=== PATIENT | female | born 1965 | race Caucasian/White ===

== ENCOUNTER → 2016-10-10 | Outpatient (CLI) | payer MEDICAID ==
[~2016-10-10] MED LIST: AMIT100T2; AMIT25TA9; CELEXA; CIPR500T78 PO; CITA20TA4 PO; ENOX100D9 SQ; HCT25T PO; MELO-195; MELO7.5T PO; METR500T PO; PHEN37.582; RABE20TA PO; WARF5TAB PO; WARF7.5T PO; WRF5T
--- NOTE | 2016-10-13 18:51 | Diagnostic Imaging Report ---
Bilateral screening mammogram 2D views with tomosynthesis. The current study was also evaluated with a Computer Aided Detection (CAD) system. INDICATION: Screening. No current complaints stated on the questionnaire. COMPARISON: 06/13/15 FINDINGS: The breasts are composed of scattered fibroglandular densities. Allowing for technique and positional differences, no suspicious change is seen. IMPRESSION: No significant change. ACR BI-RADS Category 2: Benign findings. Result letter will be mailed to the patient. Note: At least 10% of breast cancer is not imaged by mammography. Dictated by: Dictated on workstation # [id number]
== END ==
LOC: RAD 14:11
PROVIDERS: ATTEND Family Medicine
DX: Z12.31 Encounter for screening mammogram for malignant neoplasm of breast (principal)
CPT/HCPCS: 77067

== ENCOUNTER 2017-09-14 16:42 | Emergency (ER) | payer MEDICAID ==
[~2017-09-14] VITALS: Ht 160 cm; Wt 86.2 kg
--- NOTE | 2017-09-14 17:24 | ED Cough/URI ---
General Chief Complaint: Respiratory Problems Stated Complaint: TROUBLE BREATHING Nursing Triage Note: PATIENT HERE WITH SOB. SHE HAD SHOULDER SURGERY TODAY AND HAD BEEN HOLDING HER ELIQUIS FOR 1 WEEK. SHE HAS FACTOR V LEIDEN AND HAS HAD MULTIPLE DVT. Source: patient Exam Limitations: no limitations History of Present Illness Date Seen by Provider: Sep 14, 2017 Time Seen by Provider: 17:22 Initial Comments to ER with concerns of pulmonary embolism. She reports some difficulty with breathing. She had outpatient left rotator cuff surgery by Dr. Hadley earlier today. Prior to this she had been holding her Eliquis for one week(5 days) in preparation for surgery. She took her first dose of Eliquis today after surgery. she notes some shortness of breath after she got home and became concerned. She takes Eliquis for history of factor V Leiden and history of multiple DVT/PE. She does have a [place] filter. Timing/Duration: constant Severity/Quality: no cough, mild Allergies and Home Medications Allergies Coded Allergies: No Known Drug Allergies (Verified , 07/04/09) Home Medications Hydrochlorothiazide 25 Mg Tab, 50 MG PO DAILY, (Reported) Patient Home Medication List Home Medication List Reviewed: Yes Review of Systems Constitutional: see HPI EENTM: see HPI Respiratory: see HPI, short of breath Cardiovascular: no symptoms reported Genitourinary: no symptoms reported Musculoskeletal: no symptoms reported Skin: no symptoms reported Psychiatric/Neurological: No Symptoms Reported Past Gitydlt-Clubil-Ptgblm Hx Patient Social History Alcohol Use: Denies Use Recreational Drug Use: No Smoking Status: Never a Smoker 2nd Hand Smoke Exposure: No Recent Foreign Travel: No Contact w/Someone Who Travel: No Recent Infectious Disease Expo: No Recent Hopitalizations: Yes Physical Abuse: No Sexual Abuse: No Immunizations Up To Date Date of Pneumonia Vaccine: Nov 30, 2009 Past Medical History Surgeries: Yes (EXP ON L LEG, LAP BAND) Section, Gallbladder Respiratory: No Cardiac: No Neurological: No Reproductive Disorders: No Gastrointestinal: No Musculoskeletal: No Endocrine: No Cancer: No Psychosocial: No Nursing Suicide Risk Score: 0 Blood Disorders: Yes (CLOTTING DISORDERS) Physical Exam Vital Signs Vital Signs - First Documented 09/14/17 16:48 Temp 98.1 Pulse 107 Resp 18 B/P (MAP) 114/85 (95) Pulse Ox 96 Capillary Refill : Less Than 3 Seconds General Appearance: WD/WN, no apparent distress Eyes: Bilateral Eye Normal Inspection, Bilateral Eye PERRL, Bilateral Eye EOMI HEENT: PERRL/EOMI, normal ENT inspection Neck: non-tender, full range of motion Respiratory: no respiratory distress, no accessory muscle use Cardiovascular: regular rate, rhythm, no murmur Gastrointestinal: normal bowel sounds, non tender, soft Neurologic/Psychiatric: alert, normal mood/affect, oriented x 3 Skin: normal color, warm/dry, other (lleft arm is in a shoulder and abducting sling) Progress/Results/Core Measures Suspected Sepsis Recent Fever Within 48 Hours: No Infection Criteria Present: Suspected New Infection New/Unexplained Altered Menta: No Sepsis Screen: No Definite Risk SIRS Temperature:98.1 Pulse: 107 Respiratory Rate: 18 Laboratory Tests 09/14/17 17:25: White Blood Count 4.6 Blood Pressure 114 /85 Mean: 95 Laboratory Tests 09/14/17 17:25: Creatinine 1.00, Platelet Count 278, Total Bilirubin 0.3 Results/Orders Lab Results Laboratory Tests Test 09/14/17 17:25 Range/Units White Blood Count 4.6 4.3-11.0 10^3/uL Red Blood Count 4.37 4.35-5.85 10^6/uL Hemoglobin 12.6 11.5-16.0 G/DL Hematocrit 36 35-52 % Mean Corpuscular Volume 83 80-99 FL Mean Corpuscular Hemoglobin 29 25-34 PG Mean Corpuscular Hemoglobin Concent 35 32-36 G/DL Red Cell Distribution Width 14.2 10.0-14.5 % Platelet Count 278 130-400 10^3/uL Mean Platelet Volume 9.4 7.4-10.4 FL Neutrophils (%) (Auto) 87 H 42-75 % Lymphocytes (%) (Auto) 11 L 12-44 % Monocytes (%) (Auto) 2 0-12 % Eosinophils (%) (Auto) 0 0-10 % Basophils (%) (Auto) 0 0-10 % Neutrophils # (Auto) 4.0 1.8-7.8 X 10^3 Lymphocytes # (Auto) 0.5 L 1.0-4.0 X 10^3 Monocytes # (Auto) 0.1 0.0-1.0 X 10^3 Eosinophils # (Auto) 0.0 0.0-0.3 10^3/uL Basophils # (Auto) 0.0 0.0-0.1 10^3/uL Neutrophils % (Manual) 81 % Lymphocytes % (Manual) 11 % Monocytes % (Manual) 2 % Eosinophils % (Manual) 0 % Basophils % (Manual) 0 % Band Neutrophils 6 % Blood Morphology Comment NORMAL Sodium Level 138 135-145 MMOL/L Potassium Level 3.3 L 3.6-5.0 MMOL/L Chloride Level 102 98-107 MMOL/L Carbon Dioxide Level 22 21-32 MMOL/L Anion Gap 14 5-14 MMOL/L Blood Urea Nitrogen 10 7-18 MG/DL Creatinine 1.00 0.60-1.30 MG/DL Estimat Glomerular Filtration Rate 58 BUN/Creatinine Ratio 10 Glucose Level 259 H 70-105 MG/DL Calcium Level 9.0 8.5-10.1 MG/DL Total Bilirubin 0.3 0.1-1.0 MG/DL Aspartate Amino Transf (AST/SGOT) 15 5-34 U/L Alanine Aminotransferase (ALT/SGPT) 14 0-55 U/L Alkaline Phosphatase 56 40-136 U/L Total Protein 6.9 6.4-8.2 GM/DL Albumin 3.8 3.2-4.5 GM/DL My Orders Orders - MARY HORNE RN SURGICAL PCU Ct Angio Chest W (09/14/17 17:19) Cbc With Automated Diff (09/14/17 17:19) Comprehensive Metabolic Panel (09/14/17 17:19) Manual Differential (09/14/17 17:25) Iohexol Injection (Omnipaque 350 Mg/Ml 1 (09/14/17 18:15) Ns (Ivpb) (Sodium Chloride 0.9% Ivpb Bag (09/14/17 18:15) Medications Given in ED Current Medications Medications Dose Ordered Sig/Kartik Route Start Time Stop Time Status Last Admin Dose Admin Iohexol 150 ml ONCE ONCE IV 09/14/17 18:15 18 18:16 DC 18 18:06 140 ML Sodium Chloride 100 ml ONCE ONCE IV 18 18:15 18 18:16 DC 18 18:06 100 ML Vital Signs/I&O 09/14/17 16:48 Temp 98.1 Pulse 107 Resp 18 B/P (MAP) 114/85 (95) Pulse Ox 96 Capillary Refill : Less Than 3 Seconds Blood Pressure Mean: 95 Departure Impression Primary Impression: mild dyspnea Additional Impression: History of pulmonary embolism Disposition: 01 HOME, SELF-CARE Condition: Stable Departure-Patient Inst. Decision time for Depature: 17:28 Referrals: MICHAEL HADLEY MD (PCP) Primary Care Physician Patient Instructions: NO INSTRUCTIONS GIVEN Add. Discharge Instructions: 1. Continue 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 2. Follow-up with your doctor next week. use the incentive spirometer to help encourage deep breathing once every hour while awake for the next 2 or 3 days. The thyroid nodule should be followed up on with a thyroid ultrasound ordered by her primary care provider. Return to ER for any concerns. 3. Return to ER for any concerns.All discharge instructions reviewed with patient and/or family. Voiced understanding. MARY HORNE RN SURGICAL PCU Sep 14, 2017 17:24
[2017-09-14 17:34] LABS: BASOPHILS % (AUTO) 0 % (0-10); EOSINOPHILS % (AUTO) 0 % (0-10); HEMATOCRIT 36 % (35-52); HEMOGLOBIN 12.6 G/DL (11.5-16.0); LYMPHOCYTES # (AUTO) 0.5 X 10^3 (1.0-4.0); LYMPHOCYTES % (AUTO) 11 % (12-44); MEAN CORPUSCULAR HEMOGLOBIN 29 PG (25-34); MEAN CORPUSCULAR HGB CONC 35 G/DL (32-36); MEAN CORPUSCULAR VOLUME 83 FL (80-99); MEAN PLATELET VOLUME 9.4 FL (7.4-10.4); MONOCYTES # (AUTO) 0.1 X 10^3 (0.0-1.0); MONOCYTES % (AUTO) 2 % (0-12); NEUTROPHILS % (AUTO) 87 % (42-75); PLATELET COUNT 278 10^3/uL (130-400); RED BLOOD COUNT 4.37 10^6/uL (4.35-5.85); RED CELL DISTRIBUTION WIDTH 14.2 % (10.0-14.5); WHITE BLOOD COUNT 4.6 10^3/uL (4.3-11.0)
[2017-09-14 17:55] LABS: ALBUMIN 3.8 GM/DL (3.2-4.5); BILIRUBIN,TOTAL 0.3 MG/DL (0.1-1.0); POTASSIUM 3.3 MMOL/L (3.6-5.0); TOTAL PROTEIN 6.9 GM/DL (6.4-8.2)
[2017-09-14 18:05] LABS: BAND NEUTROPHILS 6 %; BASOPHILS % (MANUAL) 0 %; EOSINOPHILS % (MANUAL) 0 %; LYMPHOCYTES % (MANUAL) 11 %; MONOCYTES % (MANUAL) 2 %; NEUTROPHILS % (MANUAL) 81 %; RBC MORPH NORMAL
[2017-09-14] MEDS ORDERED: NS 100 ML (IVPB) BAG IV ONE (18:15)
[2017-09-14] MEDS ORDERED: IOHEXOL 350 MG/ML 150 ML (OMNIPAQUE 350) VIAL IV ONE (18:15)
[2017-09-14] MEDS ORDERED: OMEP10CA4 PO (18:16)
[2017-09-14] MEDS ORDERED: ESCI5TAB PO (18:17)
[2017-09-14] MEDS ORDERED: APIX5TAB4 PO (18:17)
--- NOTE | 2017-09-14 18:32 | Diagnostic Imaging Report ---
PROCEDURE: CT angiography of the chest with contrast. TECHNIQUE: Multiple contiguous axial images were obtained through the chest after uneventful bolus administration of intravenous contrast. Reconstructed CTA MIP acquisitions were also performed. INDICATION: Cough and dyspnea COMPARISON is made to study of 04/06/2012. FINDINGS: There has been interval increase in size of a 1.5 cm solid nodule in the lower pole of the left lobe of the thyroid gland. There is good opacification of pulmonary arteries without intraluminal filling defect identified. The thoracic aorta is unremarkable in appearance. There has been development of basilar atelectasis and/or pneumonitis, greater on. Note is made of left hand surgery. IMPRESSION: No CTA evidence of pulmonary embolism. There is dependent atelectasis and/or pneumonitis in both lungs, greater on the Left. There is enlargement of an approximately 1.5 cm solid nodule in the inferior pole of the left lobe of the thyroid gland. Thyroid ultrasonography should be performed for further assessment Dictated by: Dictated on workstation # [id number]
[2017-09-14 18:58] VITALS: BP 114/85
== END 2017-09-14 18:58 | disposition home or self-care (01) ==
LOC: EDUNIT# 16:42 → ER 16:43
DX: R06.00 Dyspnea, unspecified (principal); D68.2 Hereditary deficiency of other clotting factors; Z86.711 Personal history of pulmonary embolism; Z87.59 Personal history of other complications of pregnancy, childbirth and the puerperium; Z98.84 Bariatric surgery status; Z79.01 Long term (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
CPT/HCPCS: 36415; 71275; 80053; 85007; 85027

== ENCOUNTER → 2017-12-04 | Outpatient (CLI) | payer MEDICAID ==
[~2017-12-04] MED LIST changes: +APIX5TAB4 PO; +ESCI5TAB PO; +LIDOCAINE 1% INJ 20 ML 20 ML VIAL INJ ONE; +LIDOCAINE 1% INJ 20 ML 20 ML VIAL ONE; +OMEP10CA4 PO
--- NOTE | 2017-12-04 17:42 | Diagnostic Imaging Report ---
INDICATION: Routine screening. Comparison is made with prior mammogram from 10/10/2016 and 06/08/2015. 2-D and 3-D bilateral screening mammography was performed. The current study was also evaluated with a Computer Aided Detection (CAD) system. FINDINGS: Both breasts are heterogeneously dense, limiting the sensitivity of mammography. The parenchymal pattern is stable. No dominant mass or malignant-appearing microcalcifications are seen. Benign calcifications are noted bilaterally. The axillae are unremarkable. IMPRESSION: No mammographic features suspicious for malignancy are identified. ACR BI-RADS Category 2: Benign findings. Result letter will be mailed to the patient. Note: At least 10% of breast cancer is not imaged by mammography. Dictated by: Dictated on workstation # [id number]
== END ==
LOC: RAD 11:24
PROVIDERS: ATTEND Family Medicine
DX: K66.1 Hemoperitoneum (principal); Z12.31 Encounter for screening mammogram for malignant neoplasm of breast
CPT/HCPCS: 77067

== ENCOUNTER → 2017-12-07 | Outpatient (CLI) | payer MEDICAID ==
[~2017-12-07] VITALS: Ht 160 cm; Wt 86.2 kg
--- NOTE | 2017-12-07 11:28 | Diagnostic Imaging Report ---
INDICATION: Left lobe thyroid nodule. The patient presents for ultrasound guided fine needle aspiration. PROCEDURE: Patient was brought to the procedure room and placed on the table in the supine position. Ultrasound imaging over the left neck was performed to evaluate appropriate entry site. Left neck was prepped and draped in the usual sterile fashion. Small amount of 1% lidocaine was utilized for local anesthesia. A total of three passes were made into the solid nodule in the lower pole of the left lobe of thyroid utilizing 25-gauge needles. Fine needle aspiration technique was utilized. Hemostasis was obtained using manual compression. Patient tolerated the procedure well and left the department in stable condition. IMPRESSION: Successful ultrasound-guided left lobe thyroid nodule fine-needle aspiration, as described. Pathology results are currently pending. Dictated by: Dictated on workstation # [id number]
== END ==
LOC: RAD 09:33
PROVIDERS: ATTEND Family Medicine
DX: E04.1 Nontoxic single thyroid nodule (principal)
CPT/HCPCS: 76942; 88305

== ENCOUNTER → 2017-12-21 | Outpatient (RCR) | payer MEDICAID ==
[~2017-12-21] MED LIST changes: -LIDOCAINE 1% INJ 20 ML 20 ML VIAL INJ ONE; -LIDOCAINE 1% INJ 20 ML 20 ML VIAL ONE
== END | disposition home or self-care (01) ==
PROVIDERS: ATTEND Physician Assistant Medical
DX: Z47.89 Encounter for other orthopedic aftercare (principal); M25.512 Pain in left shoulder

== ENCOUNTER 2018-01-25 14:47 | Outpatient (RCR) | payer MEDICAID | END 2018-03-29 15:26 | disposition home or self-care (01) | PROVIDERS: ATTEND Physician Assistant Medical | DX: Z47.89 Encounter for other orthopedic aftercare (principal); M25.512 Pain in left shoulder ==

== ENCOUNTER 2018-02-11 21:00 | Outpatient (CLI) | payer MEDICAID | END 2018-02-12 06:25 | disposition home or self-care (01) | LOC: SLEEP 21:00 | PROVIDERS: ATTEND Family Medicine | DX: G47.33 Obstructive sleep apnea (adult) (pediatric) (principal) | CPT/HCPCS: 95810 ==

== ENCOUNTER → 2018-03-15 | Outpatient (CLI) | payer MEDICAID ==
[~2018-03-15] VITALS: Ht 160 cm; Wt 86.2 kg
[2018-03-15] MEDS: LIDOCAINE 1% INJ 20 ML 20 ML VIAL INJ ONE (09:57)
--- NOTE | 2018-03-15 10:57 | Diagnostic Imaging Report ---
INDICATION: Thyroid nodule. Patient underwent fine needle aspiration procedure on 12/07/2017 with a nondiagnostic result. The patient presents for repeat biopsy. TECHNIQUE: The patient was brought to the procedure room and placed on the table in the supine position. Ultrasound imaging over the left neck was performed to evaluate for an appropriate entry site. The skin of the left neck was then prepped and draped in the usual sterile fashion. A small amount of 1% lidocaine was utilized for local anesthesia. Two passes were made into the dominant solid nodule in the lower pole of the left lobe with a 25-gauge needle. Fine needle aspiration technique was utilized. Next, four passes were made into the nodule with a 20-gauge [place] needle and core biopsies were obtained. Hemostasis was obtained using manual compression. The patient tolerated the procedure well. IMPRESSION: Ultrasound-guided left thyroid nodule FNA and core biopsy, as described. Pathology results are currently pending. Dictated by: Dictated on workstation # [id number]
== END ==
LOC: RAD 09:16
PROVIDERS: ATTEND Surgery
DX: E04.1 Nontoxic single thyroid nodule (principal)
CPT/HCPCS: 76942; 88173; 88305

== ENCOUNTER → 2018-05-16 | Outpatient (CLI) | payer MEDICAID ==
--- NOTE | 2018-05-16 11:46 | Diagnostic Imaging Report ---
EXAMINATION: Chest, PA and lateral views. INDICATION: Cough and chest congestion. COMPARISON: Chest radiographs performed on 10/15/2009. FINDINGS: The lungs are clear and the pulmonary vasculature is normal. No pneumothorax or pleural effusion. Cardiothymic silhouette is unchanged. No acute osseous abnormality. Surgical clips are demonstrated in the right upper quadrant. Bone anchor in the left humeral head likely reflects prior shoulder surgery. IMPRESSION: No acute chest disease. No significant change from prior. Dictated by: Dictated on workstation # [id number]
== END ==
LOC: RAD 11:14
PROVIDERS: ATTEND Nurse Practitioner Family
DX: R05 Cough (principal); R09.89 Other specified symptoms and signs involving the circulatory and respiratory systems; Z98.890 Other specified postprocedural states
CPT/HCPCS: 71046

== ENCOUNTER 2018-07-14 20:04 | Observation (INO) | payer MEDICAID ==
[~2018-07-14] VITALS: Ht 160 cm; Wt 86.2 kg
[2018-07-14] MEDS ORDERED: fentaNYL INJECTION 100 MCG/2 ML AMP ONE (20:10)
[2018-07-14] MEDS ORDERED: fentaNYL INJECTION 100 MCG/2 ML AMP IVP ONE ×4 (20:15→22:45)
[2018-07-14] MEDS ORDERED: ONDANSETRON 4 MG/2 ML (SDV) Z0FRAN IVP ONE (20:15)
[2018-07-14 20:25] LABS: BASOPHILS # (AUTO) 0.1 10^3/uL (0.0-0.1); BASOPHILS % (AUTO) 1 % (0-10); EOSINOPHILS # (AUTO) 0.3 10^3/uL (0.0-0.3); EOSINOPHILS % (AUTO) 5 % (0-10); HEMATOCRIT 39 % (35-52); HEMOGLOBIN 12.3 G/DL (11.5-16.0); LYMPHOCYTES # (AUTO) 3.1 X 10^3 (1.0-4.0); LYMPHOCYTES % (AUTO) 45 % (12-44); MEAN CORPUSCULAR HEMOGLOBIN 26 PG (25-34); MEAN CORPUSCULAR HGB CONC 32 G/DL (32-36); MEAN CORPUSCULAR VOLUME 82 FL (80-99); MEAN PLATELET VOLUME 9.9 FL (7.4-10.4); MONOCYTES % (AUTO) 14 % (0-12); NEUTROPHILS # (AUTO) 2.5 X 10^3 (1.8-7.8); NEUTROPHILS % (AUTO) 36 % (42-75); PLATELET COUNT 385 10^3/uL (130-400); RED CELL DISTRIBUTION WIDTH 17.2 % (10.0-14.5)
[2018-07-14 20:37] LABS: PROTHROMBIN TIME PATIENT 13.8 SEC (12.2-14.7)
[2018-07-14 20:46] LABS: ALANINE AMINOTRANSFERASE 23 U/L (0-55); ALBUMIN 4.3 GM/DL (3.2-4.5); ALKALINE PHOSPHATASE 90 U/L (40-136); BILIRUBIN,TOTAL 0.3 MG/DL (0.1-1.0); BUN/CREATININE RATIO 13; CALCIUM 9.7 MG/DL (8.5-10.1); CARBON DIOXIDE 22 MMOL/L (21-32); CHLORIDE 104 MMOL/L (98-107); CREATININE SERUM 0.89 MG/DL (0.60-1.30); GFR ESTIMATED > 60; GLUCOSE 98 MG/DL (70-105); MAGNESIUM 2.6 MG/DL (1.8-2.4); POTASSIUM 3.7 MMOL/L (3.6-5.0); SODIUM 141 MMOL/L (135-145); TOTAL PROTEIN 7.8 GM/DL (6.4-8.2)
--- NOTE | 2018-07-14 21:03 | ED Fall/Injury ---
General Chief Complaint: Trauma-Non Activation Stated Complaint: BACK PAIN Nursing Triage Note: PT TO RM 4 BY WHEELCHAIR. PT WAS HELPED OUT OF VEHICLE BY STAFF. PT STATES SHE WAS GETTING INTO THE VEHICLE, LOST HER BALANCE, FELL BACKWARD, HIT HEAD AND HEARD A POP IN HER LOWER BACK. DENIES LOC. Source: patient, spouse Exam Limitations: no limitations History of Present Illness Date Seen by Provider: Jul 14, 2018 Time Seen by Provider: 20:00 Initial Comments Patient presents to ER by private conveyance with her with chief complaint about half hour prior to arrival she was getting into her truck when she slipped and fell backwards landing first on her head and then on her lower back. She says she felt a snapping sensation in her low back and is had a tremendous amount of pain 10 out of 10. The pain radiates down her right buttock and right leg just below the butt cheek. She has no history of back problems or back surgeries or sciatica. She is on Xarelto for a history of factor V Leiden. She had immediate waves of nausea after falling and striking her head but did not vomit. She still having some pain in her head but also her pain is in her low back. She couple weeks ago had a surgery for biopsy of a nodule on her thyroid turned out to be benign. She does not have diabetes, heart problems or blood pressure problems. Allergies and Home Medications Allergies Coded Allergies: No Known Drug Allergies (Verified , 07/04/09) Home Medications Hydrochlorothiazide 25 Mg Tab, 50 MG PO DAILY, (Reported) Patient Home Medication List Home Medication List Reviewed: Yes Review of Systems Review of Systems Constitutional: No chills, No fever Eyes: Denies Blindness, Denies Blurred Vision Ears, Nose, Mouth, Throat: denies ear pain, denies ear discharge Respiratory: No cough, No short of breath Cardiovascular: No chest pain, No edema Gastrointestinal: No abdominal pain, No constipation, No diarrhea; nausea; No vomiting Genitourinary: No discharge, No dysuria Musculoskeletal: No back pain, No joint pain Past Nnhedwt-Jnnwnj-Gsaapu Hx Patient Social History Alcohol Use: Denies Use Recreational Drug Use: No Smoking Status: Never a Smoker 2nd Hand Smoke Exposure: No Recent Foreign Travel: No Contact w/Someone Who Travel: No Recent Infectious Disease Expo: No Recent Hopitalizations: No Immunizations Up To Date Tetanus Booster (TDap): Unknown Date of Pneumonia Vaccine: Nov 30, 2009 Past Medical History Surgeries: Yes (EXP ON L LEG, LAP BAND) Section, Gallbladder, Thyroidectomy Respiratory: No Cardiac: No Neurological: No Reproductive Disorders: No Gastrointestinal: No Musculoskeletal: No Endocrine: No Cancer: No Psychosocial: No Integumentary: No Blood Disorders: Yes (CLOTTING DISORDERS, FACTOR FIVE) Physical Exam Vital Signs Vital Signs - First Documented 07/14/18 20:05 Pulse 86 Resp 18 B/P (MAP) 148/92 (110) Pulse Ox 98 O2 Delivery Room Air Capillary Refill : Less Than 3 Seconds Height, Weight, BMI Height: 5'3.00" Weight: 190lbs. 0.0oz. 86.807535kv; 33.7 BMI Method:Stated General Appearance: WD/WN, moderate distress HEENT: PERRL/EOMI, normal ENT inspection, TMs normal, pharynx normal, other ( atraumatic head without vital signs, raccoon eyes, hemotympanum) Neck: non-tender ( area), full range of motion, supple, normal inspection Cardiovascular: normal peripheral pulses, regular rate, rhythm, no edema Respiratory: chest non-tender, lungs clear, normal breath sounds, no respiratory distress, no accessory muscle use Peripheral Pulses: 2+ Dorsalis Pedis (R), 2+ Left Dors-Pedis (L), 2+ Radial Pulses (R), 2+ Radial Pulses (L) Gastrointestinal: normal bowel sounds, non tender Extremities: normal range of motion, non-tender, normal inspection, no pedal edema, normal capillary refill Neurologic/Psychiatric: manager online II-XII nml as tested, no motor/sensory deficits, alert, normal mood/affect, oriented x 3, other (able to move all 4 extremities independently) Skin: normal color [place] Coma Score Best Eye Response: (4) Open Spontaneously Best Verbal Response: (5) Oriented Best Motor Response: (6) Obeys Commands [place] Total: 15 Progress/Results/Core Measures Results/Orders Lab Results Laboratory Tests Test 07/14/18 20:10 Range/Units White Blood Count 7.0 4.3-11.0 10^3/uL Red Blood Count 4.73 4.35-5.85 10^6/uL Hemoglobin 12.3 11.5-16.0 G/DL Hematocrit 39 35-52 % Mean Corpuscular Volume 82 80-99 FL Mean Corpuscular Hemoglobin 26 25-34 PG Mean Corpuscular Hemoglobin Concent 32 32-36 G/DL Red Cell Distribution Width 17.2 H 10.0-14.5 % Platelet Count 385 130-400 10^3/uL Mean Platelet Volume 9.9 7.4-10.4 FL Neutrophils (%) (Auto) 36 L 42-75 % Lymphocytes (%) (Auto) 45 H 12-44 % Monocytes (%) (Auto) 14 H 0-12 % Eosinophils (%) (Auto) 5 0-10 % Basophils (%) (Auto) 1 0-10 % Neutrophils # (Auto) 2.5 1.8-7.8 X 10^3 Lymphocytes # (Auto) 3.1 1.0-4.0 X 10^3 Monocytes # (Auto) 1.0 0.0-1.0 X 10^3 Eosinophils # (Auto) 0.3 0.0-0.3 10^3/uL Basophils # (Auto) 0.1 0.0-0.1 10^3/uL Prothrombin Time 13.8 12.2-14.7 SEC INR Comment 1.0 0.8-1.4 Activated Partial Thromboplast Time 30 24-35 SEC Sodium Level 141 135-145 MMOL/L Potassium Level 3.7 3.6-5.0 MMOL/L Chloride Level 104 98-107 MMOL/L Carbon Dioxide Level 22 21-32 MMOL/L Anion Gap 15 H 5-14 MMOL/L Blood Urea Nitrogen 12 7-18 MG/DL Creatinine 0.89 0.60-1.30 MG/DL Estimat Glomerular Filtration Rate > 60 BUN/Creatinine Ratio 13 Glucose Level 98 70-105 MG/DL Calcium Level 9.7 8.5-10.1 MG/DL Corrected Calcium 9.5 8.5-10.1 MG/DL Magnesium Level 2.6 H 1.8-2.4 MG/DL Total Bilirubin 0.3 0.1-1.0 MG/DL Aspartate Amino Transf (AST/SGOT) 27 5-34 U/L Alanine Aminotransferase (ALT/SGPT) 23 0-55 U/L Alkaline Phosphatase 90 40-136 U/L Total Protein 7.8 6.4-8.2 GM/DL Albumin 4.3 3.2-4.5 GM/DL Serum Alcohol < 10 <10 MG/DL My Orders Orders - ERVIN ASTUDILLO Alcohol (07/14/18 20:12) Cbc With Automated Diff (07/14/18 20:12) Comprehensive Metabolic Panel (07/14/18 20:12) Magnesium (07/14/18 20:12) Protime With Inr (07/14/18 20:12) Partial Thromboplastin Time (07/14/18 20:12) Fentanyl Injection (Sublimaze Injection (07/14/18 20:15) Ondansetron Injection (Zofran Injectio (07/14/18 20:15) Fentanyl Injection (Sublimaze Injection (07/14/18 20:10) Ct Head/Cervical Spine Wo (07/14/18 20:12) Ct Thoracic/Lumbar Spine Wo (07/14/18 20:12) Hip, Right, 2 Views (07/14/18 20:26) Fentanyl Injection (Sublimaze Injection (07/14/18 21:15) Fentanyl Injection (Sublimaze Injection (07/14/18 22:30) Hydrocodone/Apap 10/325 Tablet (Lortab 1 (07/14/18 22:30) Cyclobenzaprine Tablet (Flexeril Tablet) (07/14/18 22:30) Fentanyl Injection (Sublimaze Injection (07/14/18 22:45) Medications Given in ED Current Medications Medications Dose Ordered Sig/Kartik Route Start Time Stop Time Status Last Admin Dose Admin Acetaminophen/ Hydrocodone Bitart 1 ea ONCE ONCE PO 07/14/18 22:30 07/14/18 22:31 DC 07/14/18 22:25 1 EA Fentanyl Citrate 75 mcg ONCE ONCE IVP 07/14/18 20:15 07/14/18 20:16 DC 07/14/18 20:15 75 MCG Fentanyl Citrate 75 mcg ONCE ONCE IVP 07/14/18 21:15 07/14/18 21:19 DC 07/14/18 21:15 75 MCG Fentanyl Citrate 75 mcg ONCE ONCE IVP 07/14/18 22:30 07/14/18 22:31 DC 07/14/18 22:25 75 MCG Ondansetron HCl 4 mg ONCE ONCE IVP 07/14/18 20:15 07/14/18 20:16 DC 07/14/18 20:23 4 MG Vital Signs/I&O 07/14/18 20:05 Pulse 86 Resp 18 B/P (MAP) 148/92 (110) Pulse Ox 98 O2 Delivery Room Air Blood Pressure Mean: 110 Progress Progress Note #1: Time: 21:[address] without contrast of the head, cervical, thoracic, lumbar spine. She's having some pain in her right hip so we'll obtain a right hip x-ray. Fentanyl 75 g made a significant improvement in her comfort. She still having 5 out of 10 pain she says but has declined further pain medicine at this time. Progress Note #2: Time: 22:15 Progress Note Her initial pain medicine has worn off. We are going to give her 75 minute micrograms of fentanyl and 10 mg of hydrocodone as well as Norflex or cyclobenzaprine if we have it and see if she feels up to going home versus an overnight stay for pain management. Diagnostic Imaging Diagonstic Imaging: Xray Plain Films/CT/US/NM/MRI: hip (right) [facility] [place] [place] NAME: ISABEL FERRARO [facility] REC#: [id number] PT STATUS: REG ER : 1965 PHYSICIAN: ERVIN ASTUDILLO MD ADMIT DATE: 07/14/18/ER Draft Date of Exam:07/14/18 HIP, RIGHT, 2 VIEWS Examination: Right hip, AP and frog-leg views Indication: Traumatic right hip pain. Patient fell while getting into truck. Comparison: None available. Findings: No fracture or acute osseous abnormality. The femoral head is well-seated in the acetabulum. The visualized right pelvis appears intact. Mild arthritic change of the right hip is noted. Soft tissues are unremarkable. IMPRESSION: No acute fracture or dislocation. Dictated on workstation # [id number] Dict: 07/14/182130 Trans: 07/14/182138 [facility] [id number] Interpreted by: ERICA LAWRENCE DO Electronically signed by: Reviewed: Reviewed by Me Diagonstic Imaging: CT (without contrast) Plain Films/CT/US/NM/MRI: head Comments [facility] [place] [place] NAME: ISABEL FERRARO MED REC#: [id number] PT STATUS: REG ER : 1965 PHYSICIAN: ERVIN ASTUDILLO MD ADMIT DATE: 07/14/18/ER Draft Date of Exam:07/14/18 CT HEAD/CERVICAL SPINE WO PROCEDURE: CT head and CT cervical spine without contrast. TECHNIQUE: Multiple contiguous axial images were obtained through the brain and cervical spine without the use of intravenous contrast. Sagittal and coronal reformations through the cervical spine were then performed. Auto Exposure Controls were utilized during the CT exam to meet ALARA standards for radiation dose reduction. INDICATION: Traumatic head/neck injury sustained during fall while getting into truck. COMPARISON: None available. FINDINGS - CT BRAIN: BRAIN: No parenchymal hemorrhage, midline shift or mass effect. Virk-white matter differentiation is intact. No acute infarct. No white matter lesions. Ventricles, sulci and basilar cisterns are normal. EXTRA-AXIAL SPACES: No subdural or epidural collections. ORBITS AND PARANASAL SINUSES: Visualized orbits and globes are intact. Visualized paranasal sinuses and mastoid air cells are clear. CALVARIUM AND SOFT TISSUES: The calvarium is intact. No fractures or suspicious bony lesions. The extracranial soft tissues are unremarkable. FINDINGS - CT CERVICAL SPINE: SPINE: No fracture. No acute osseous abnormalities. There is normal cervical lordosis. No subluxation. Intervertebral disc spaces are normal in height. No locked or perched facet. SOFT TISSUES AND LUNG APICES: No prevertebral soft tissue abnormality. The left thyroid lobe is not visualized and may be surgically absent. A subcentimeter low-attenuation nodule is demonstrated in the right thyroid lobe. Clear lung apices. IMPRESSION: - CT BRAIN: No acute intracranial pathology. IMPRESSION: - CT CERVICAL SPINE: No acute cervical fracture or subluxation. Left thyroid lobe is not visualized and presumed surgically absent. Subcentimeter low-attenuation nodule in the right thyroid lobe. This can be further evaluated with dedicated thyroid ultrasound on a nonemergent basis, as clinically indicated. Dictated on workstation # [id number] Dict: 07/14/182110 Trans: 07/14/182116 [facility] [id number] Interpreted by: ERICA LAWRENCE DO Electronically signed by: Reviewed: Reviewed by Ks Diagonstic Imaging: CT (noncontrast) Plain Films/CT/US/NM/MRI: c-spine, other (thoracolumbar spine) Comments [facility] [place] [place] NAME: ISABEL FERRARO [facility] REC#: [id number] PT STATUS: REG ER : 1965 PHYSICIAN: ERVIN ASTUDILLO MD ADMIT DATE: 07/14/18/ER Draft Date of Exam:07/14/18 CT THORACIC/LUMBAR SPINE WO PROCEDURE: CT thoracic and lumbar spine without contrast. TECHNIQUE: Multiple contiguous axial images were obtained through the thoracic and lumbar spine without the use of intravenous contrast. Sagittal and coronal reformations were then performed. INDICATION: Back pain after trauma sustained during a fall while getting into truck. COMPARISON: None. FINDINGS: There is a compression fracture involving the superior endplate of the L3 vertebral body, with mild extension, inferiorly, along the anterior aspect of the vertebral body. There is no retropulsion of bone or paravertebral hematoma noted at this level. No other fracture is identified. Vertebral body heights are otherwise maintained. Spinal alignment and intervertebral disc spaces are preserved. Minimal degenerative changes are noted. There is mild dependent atelectasis in the lower lobes. The visualized lungs are otherwise clear. Scattered nonenlarged mediastinal lymph nodes are demonstrated. A small hiatal hernia is noted. 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 The abdominal viscera and visualized bowel are unremarkable. An IVC filter is demonstrated in infrarenal IVC. IMPRESSION: Acute compression fracture of the superior endplate of the L3 vertebral body. There is no significant paravertebral hematoma or retropulsion of bone. Spinal alignment is maintained and intervertebral disc spaces are preserved. Report was called to ANTHONY Vanegas in the [facility] ER at 9:34 p.m., by luna. Dictated on workstation # [id number] Dict: 07/14/182114 Trans: 07/14/182137 [facility] [id number] Interpreted by: ERICA LAWRENCE DO Electronically signed by: Reviewed: Reviewed by Me Departure Communication (Admissions) Time/Spoke to Admitting Phy: 22:45 Discussed observing the patient overnight for pain management and we discussed some pain management strategies and Dr. Deluca agrees to accept the patient. I explained to her that she would not have an orthopedic surgeon consult and she was okay with this. Time/Spoke to Consulting Phy: 22:46 Called and discussed the case with Dr. Castaneda and he declined to consult because he does not do backs. Impression Primary Impression: Closed L3 vertebral fracture Qualified Codes: S32.039A - Unspecified fracture of third lumbar vertebra, initial encounter for closed fracture Additional Impression: Fall Qualified Codes: W19.XXXA - Unspecified fall, initial encounter Disposition: ADMITTED INPATIENT Condition: Stable Admissions Decision to Admit Reason: Admit from ER (General) Decision to Admit/Date: Jul 14, 2018 Time/Decision to Admit Time: 22:46 Departure-Patient Inst. Referrals: ASHLEY BRUNO MD (PCP/Family) Primary Care Physician ERVIN ASTUDILLO Jul 14, 2018 21:03
--- NOTE | 2018-07-14 21:18 | Diagnostic Imaging Report ---
PROCEDURE: CT head and CT cervical spine without contrast. TECHNIQUE: Multiple contiguous axial images were obtained through the brain and cervical spine without the use of intravenous contrast. Sagittal and coronal reformations through the cervical spine were then performed. Auto Exposure Controls were utilized during the CT exam to meet ALARA standards for radiation dose reduction. INDICATION: Traumatic head/neck injury sustained during fall while getting into truck. COMPARISON: None available. FINDINGS - CT BRAIN: BRAIN: No parenchymal hemorrhage, midline shift or mass effect. Virk-white matter differentiation is intact. No acute infarct. No white matter lesions. Ventricles, sulci and basilar cisterns are normal. EXTRA-AXIAL SPACES: No subdural or epidural collections. ORBITS AND PARANASAL SINUSES: Visualized orbits and globes are intact. Visualized paranasal sinuses and mastoid air cells are clear. CALVARIUM AND SOFT TISSUES: The calvarium is intact. No fractures or suspicious bony lesions. The extracranial soft tissues are unremarkable. FINDINGS - CT CERVICAL SPINE: SPINE: No fracture. No acute osseous abnormalities. There is normal cervical lordosis. No subluxation. Intervertebral disc spaces are normal in height. No locked or perched facet. SOFT TISSUES AND LUNG APICES: No prevertebral soft tissue abnormality. The left thyroid lobe is not visualized and may be surgically absent. A subcentimeter low-attenuation nodule is demonstrated in the right thyroid lobe. Clear lung apices. IMPRESSION: - CT BRAIN: No acute intracranial pathology. IMPRESSION: - CT CERVICAL SPINE: No acute cervical fracture or subluxation. Left thyroid lobe is not visualized and presumed surgically absent. Subcentimeter low-attenuation nodule in the right thyroid lobe. This can be further evaluated with dedicated thyroid ultrasound on a nonemergent basis, as clinically indicated. Dictated by: Dictated on workstation # [id number]
--- NOTE | 2018-07-14 21:38 | Diagnostic Imaging Report ---
PROCEDURE: CT thoracic and lumbar spine without contrast. TECHNIQUE: Multiple contiguous axial images were obtained through the thoracic and lumbar spine without the use of intravenous contrast. Sagittal and coronal reformations were then performed. INDICATION: Back pain after trauma sustained during a fall while getting into truck. COMPARISON: None. FINDINGS: There is a compression fracture involving the superior endplate of the L3 vertebral body, with mild extension, inferiorly, along the anterior aspect of the vertebral body. There is no retropulsion of bone or paravertebral hematoma noted at this level. No other fracture is identified. Vertebral body heights are otherwise maintained. Spinal alignment and intervertebral disc spaces are preserved. Minimal degenerative changes are noted. There is mild dependent atelectasis in the lower lobes. The visualized lungs are otherwise clear. Scattered nonenlarged mediastinal lymph nodes are demonstrated. A small hiatal hernia is noted. 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 The abdominal viscera and visualized bowel are unremarkable. An IVC filter is demonstrated in infrarenal IVC. IMPRESSION: Acute compression fracture of the superior endplate of the L3 vertebral body. There is no significant paravertebral hematoma or retropulsion of bone. Spinal alignment is maintained and intervertebral disc spaces are preserved. Report was called to ANTHONY Vanegas in the [facility] ER at 9:34 p.m., by irish. Dictated by: Dictated on workstation # [id number]
--- NOTE | 2018-07-14 21:40 | Diagnostic Imaging Report ---
Examination: Right hip, AP and frog-leg views Indication: Traumatic right hip pain. Patient fell while getting into truck. Comparison: None available. Findings: No fracture or acute osseous abnormality. The femoral head is well-seated in the acetabulum. The visualized right pelvis appears intact. Mild arthritic change of the right hip is noted. Soft tissues are unremarkable. IMPRESSION: No acute fracture or dislocation. Dictated by: Dictated on workstation # [id number]
[2018-07-14] MEDS ORDERED: CYCLOBENZAPRINE 10 MG (FLEXERIL) TAB PO SCH (22:30)
[2018-07-14] MEDS ORDERED: HYDROcodone/APAP 10 MG/325 MG (LORTAB) TAB PO ONE (22:30)
[2018-07-14] MEDS ORDERED: PANT20TA3 PO (22:55)
[2018-07-14] MEDS ORDERED: HYDR50CA3 PO (22:55)
[2018-07-14] MEDS ORDERED: RIVA20TA PO (22:55)
[2018-07-14] MEDS ORDERED: ESCI10TA55 PO (22:55)
[2018-07-14] MEDS ORDERED: hydrOXYzine (VISTARIL) 25 MG capsule/tablet PO ONE (23:30)
[2018-07-15] VITALS (8 sets, daily range): BP systolic 105–138; BP diastolic 57–87
[2018-07-15] MEDS: fentaNYL INJECTION 100 MCG/2 ML AMP IVP ONE ×2 (00:25→00:30)
[2018-07-15] MEDS ORDERED: fentaNYL INJECTION 100 MCG/2 ML AMP ONE (02:33)
[2018-07-15] MEDS: fentaNYL INJECTION 100 MCG/2 ML AMP IV PRN ×3 (02:44→12:33)
[2018-07-15] MEDS ORDERED: ONDANSETRON 4 MG/2 ML (SDV) Z0FRAN IV PRN (02:45)
[2018-07-15] MEDS ORDERED: CATHETER FLUSH 10 ML SYR IV PRN (02:45)
[2018-07-15] MEDS ORDERED: HYDROmorphone 2 MG/ML VIAL (DILAUDID) IV PRN (02:45)
[2018-07-15] MEDS ORDERED: KETOROLAC 15 MG/ML VIAL IV PRN (02:45)
[2018-07-15] MEDS: HYDROcodone/APAP 10 MG/325 MG (LORTAB) TAB PO PRN ×2 (03:50→09:13)
[2018-07-15] MEDS: CATHETER FLUSH 10 ML SYR IV SCH ×3 (04:55→20:16)
[2018-07-15 06:30] LABS: BASOPHILS % (AUTO) 1 % (0-10); EOSINOPHILS # (AUTO) 0.2 10^3/uL (0.0-0.3); EOSINOPHILS % (AUTO) 4 % (0-10); HEMATOCRIT 35 % (35-52); LYMPHOCYTES # (AUTO) 1.9 X 10^3 (1.0-4.0); LYMPHOCYTES % (AUTO) 34 % (12-44); MEAN CORPUSCULAR HEMOGLOBIN 26 PG (25-34); MEAN CORPUSCULAR HGB CONC 31 G/DL (32-36); MEAN CORPUSCULAR VOLUME 82 FL (80-99); MEAN PLATELET VOLUME 10.1 FL (7.4-10.4); MONOCYTES # (AUTO) 0.7 X 10^3 (0.0-1.0); MONOCYTES % (AUTO) 13 % (0-12); NEUTROPHILS # (AUTO) 2.7 X 10^3 (1.8-7.8); NEUTROPHILS % (AUTO) 49 % (42-75); PLATELET COUNT 287 10^3/uL (130-400); RED CELL DISTRIBUTION WIDTH 17.1 % (10.0-14.5); WHITE BLOOD COUNT 5.6 10^3/uL (4.3-11.0)
[2018-07-15 06:39] LABS: BUN/CREATININE RATIO 13; CARBON DIOXIDE 23 MMOL/L (21-32); CHLORIDE 107 MMOL/L (98-107); CREATININE SERUM 0.78 MG/DL (0.60-1.30); GFR ESTIMATED > 60; GLUCOSE 85 MG/DL (70-105); POTASSIUM 3.5 MMOL/L (3.6-5.0); SODIUM 141 MMOL/L (135-145)
[2018-07-15] MEDS ORDERED: IBUP-30 PO (08:46)
[2018-07-15] MEDS ORDERED: ACET-2267 PO (08:46)
[2018-07-15] MEDS ORDERED: MULT-141 PO (08:46)
[2018-07-15] MEDS ORDERED: HYDR50TA3 PO (08:46)
--- NOTE | 2018-07-15 08:47 | NUR ---
WENT OVER THE EXT MED HX WITH THE PATIENT AND SHE VERIFIED HOW SHE TAKES HER PRESCRIPTION MEDICATIONS. SHE ALSO STATES SHE TAKES IBU AND TYLENOL OTC PRN AND A WOMEN'S [employer] DAILY.
[2018-07-15] MEDS: diphenhydrAMINE 25 MG TAB (BENADRYL) PO PRN ×3 (09:12→20:17)
--- NOTE | 2018-07-15 13:41 | History & Physicial (CHS) ---
HPI History of Present Illness: 53 yo F that presented after fall. States that she was getting into her vehicle and her foot slipped and she fell hard backwards and heard a pop when she landed. States that she also hit her head on the ground. Denies any previous back injuries. States that her grandmother and mother both have poor bone health. Grandmother with hip fracture after fall. States that she is having alot of pain in her back. Denies any weakness, numbness or tingling in LE bilaterally. States that pain is worse when she is sitting up or standing. Source: patient Date seen by provider: Jul 15, 2018 Time Seen by Provider: 12:35 Attending Physician Lisa Deluca MD PCP Ashley López MD Consult Date of Admission Jul 14, 2018 at 22:50 Home Medications Home Medications Reviewed patient Home Medication Reconciliation performed by pharmacy medication reconciliations instrument and electrical technician and/or nursing. Patients Allergies have been reviewed. Allergies Coded Allergies: No Known Drug Allergies (Verified , 07/04/09) JOL-Spccvl-Prlnro Hx Patient Social History Living Status: Lives in home with Alcohol Use: Denies Use Recreational Drug Use: No Smoking Status: Never a Smoker 2nd Hand Smoke Exposure: No Recent Foreign Travel: No Contact w/other who traveled: No Recent Hopitalizations: No Recent Infectious Disease Expo: No Physical Abuse Screen: No Sexual Abuse: No Immunizations Up To Date Tetanus Booster (TDap): Unknown Date of Pneumonia Vaccine: Nov 30, 2009 Past Medical History HTN Recurrent DVTs Family Medical History Significant Family History: No Pertinent Family Hx Family History: Patient reports no known family medical history. Review of Systems ([facility]) Constitutional: no symptoms reported; No chills, No fever, No malaise Respiratory: no symptoms reported; No cough, No dyspnea on exertion, No short of breath Cardiovascular: no symptoms reported; No chest pain, No edema, No palpitations Gastrointestinal: no symptoms reported; No abdominal pain, No constipation, No diarrhea, No nausea, No vomiting Genitourinary: no symptoms reported; No dysuria, No frequency, No hematuria : No Musculoskeletal: back pain Skin: no symptoms reported; No lesions, No rash Psychiatric/Neurological: Headache; Denies Numbness, Denies Paresthesia, Denies Weakness Reviewed Test Results Reviewed Test Results Lab Laboratory Tests Test 07/15/18 06:05 07/15/18 14:00 Range/Units White Blood Count 5.6 4.3-11.0 10^3/uL Red Blood Count 4.27 L 4.35-5.85 10^6/uL Hemoglobin 11.0 L 11.5-16.0 G/DL Hematocrit 35 35-52 % Mean Corpuscular Volume 82 80-99 FL Mean Corpuscular Hemoglobin 26 25-34 PG Mean Corpuscular Hemoglobin Concent 31 L 32-36 G/DL Red Cell Distribution Width 17.1 H 10.0-14.5 % Platelet Count 287 130-400 10^3/uL Mean Platelet Volume 10.1 7.4-10.4 FL Neutrophils (%) (Auto) 49 42-75 % Lymphocytes (%) (Auto) 34 12-44 % Monocytes (%) (Auto) 13 H 0-12 % Eosinophils (%) (Auto) 4 0-10 % Basophils (%) (Auto) 1 0-10 % Neutrophils # (Auto) 2.7 1.8-7.8 X 10^3 Lymphocytes # (Auto) 1.9 1.0-4.0 X 10^3 Monocytes # (Auto) 0.7 0.0-1.0 X 10^3 Eosinophils # (Auto) 0.2 0.0-0.3 10^3/uL Basophils # (Auto) 0.0 0.0-0.1 10^3/uL Sodium Level 141 135-145 MMOL/L Potassium Level 3.5 L 3.6-5.0 MMOL/L Chloride Level 107 98-107 MMOL/L Carbon Dioxide Level 23 21-32 MMOL/L Anion Gap 11 5-14 MMOL/L Blood Urea Nitrogen 10 7-18 MG/DL Creatinine 0.78 0.60-1.30 MG/DL Estimat Glomerular Filtration Rate > 60 BUN/Creatinine Ratio 13 Glucose Level 85 70-105 MG/DL Calcium Level 9.0 8.5-10.1 MG/DL Physical Exam-(CHC) Physical Exam Vital Signs VS - Last 72 Hours, by Label 07/14/18 07/15/18 07/15/18 07/15/18 20:05 00:16 00:56 00:58 Pulse 86 86 86 Resp 18 18 18 B/P (MAP) 148/92 (110) 135/85 (102) 135/85 Pulse Ox 98 98 98 O2 Delivery Room Air Room Air 07/15/18 07/15/18 07/15/18 07/15/18 00:59 04:00 08:00 08:00 Temp 98.5 79.1 97.6 Pulse 77 75 62 Resp 18 B/P (MAP) 138/87 (104) 105/61 (76) 110/65 (80) Pulse Ox 98 96 97 97 O2 Delivery Room Air Room Air Room Air Room Air 07/15/18 07/15/18 07/15/18 12:00 15:45 19:20 Temp 98.0 98.1 98.0 Pulse 98 68 68 Resp B/P (MAP) 110/57 (74) 113/81 (92) 120/77 (91) Pulse Ox 93 98 97 O2 Delivery Room Air Room Air Room Air Capillary Refill : Less Than 3 SecondsLess Than 3 Seconds General Appearance: WD/WN, mild distress (with activity due to pain) HEENT: PERRL/EOMI Neck: non-tender, full range of motion, supple, normal inspection Respiratory: chest non-tender, lungs clear, normal breath sounds, no respiratory distress, no accessory muscle use Cardiovascular: normal peripheral pulses, regular rate, rhythm, no edema, no murmur Gastrointestinal: normal bowel sounds, non tender, soft, no organomegaly Back: vertebral tenderness (lumbar spine) Extremities: normal range of motion, non-tender, normal inspection, no pedal edema, no calf tenderness Neurologic/Psychiatric: barrel turner II-XII nml as tested, no motor/sensory deficits, alert, normal mood/affect, oriented x 3 Skin: normal color, warm/dry Lymphatic: no adenopathy Assessment/Plan Assessment/Plan Admission Status: Observation (1) Closed L3 vertebral fracture Status: Acute Assessment & Plan: - Will change to Percocet for pain control, PT to evaluate, will followup with ortho as outpatient. Patient will need DEXA as outpatient. Vit D level pending Qualifiers: Qualified Codes: S32.039A - Unspecified fracture of third lumbar vertebra, initial encounter for closed fracture (2) Fall Status: Acute Qualifiers: Qualified Codes: W19.XXXA - Unspecified fall, initial encounter (3) HTN (hypertension) Status: Chronic Assessment & Plan: - continue home meds Qualifiers: Qualified Codes: I10 - Essential (primary) hypertension (4) Recurrent deep vein thrombosis (DVT) Status: Chronic Assessment & Plan: - Continue Xarelto Clinical Quality Measures DVT/VTE Risk/Contraindication: Risk Factor Score Per Nursin RFS Level Per Nursing on Admit: 2=Moderate Copy Copies To 1: ASHLEY LÓPEZ MD, HOLLY R MD Jul 15, 2018 13:41
--- NOTE | 2018-07-15 13:55 | NUR ---
CM/SS. Visited with patient and her spouse Marietta Dobbs. She plans home when discharged, Marietta does most of the cooking at this time and is capable and willing to assist patient as needed. She appears to have pain with movement at this time. She states she did ambulate to the restroom and back in her room. DME: Has FWW. No identified needs at this time, will continue to follow and assist as necessary.
[2018-07-15] MEDS: oxyCODONE/APAP 10/325MG (PERCOCET 10) TABLET PO PRN ×2 (14:15→20:17)
[2018-07-15] MEDS: predniSONE 20 MG TAB PO SCH (14:16)
--- NOTE | 2018-07-15 15:09 | Physical Therapy Ortho Eval ---
PT Orthopedic Evaluation Type of Surgery No surgery; fall with L3 FX Prior Level of Function Current Living Status: Spouse Locomotion (Upon Admit): Independent Established Durable Medical Eq: Front Wheeled Walker Subjective Subjective Pt reports pain with any movement. Reports she thinks she is going home tomorrow. Entry Into Home: Stairs Without Railing Steps Into Home: 2 Steps Inside Home: 4 Steps Accessories: No Railing Motor Control Motor Control: Motor Control WNL ROM ROM: WFL Strength Strength: WFL Transfer Transfers (B, C, W/C) (FIM): 5 (Skilled cues for log roll technique; takes extra time to complete due to pain. ) Gait Gait Assistive Device: FWW Right Lower Extremity: Right Weight Bearing Status RLE: Weight Bearing/Tolerated Left Lower Extremity: Left Weight Bearing Status LLE: Weight Bearing/Tolerated Gait (FIM): 5 (SBA for safety) Distance (FIM): 3=150 ft Gait Level of Assist: 5 Summary/Comments slow gait with heavy reliance on FWW Treatment Rendered Treatment: Gait Train Educated pt in log roll technique. Educated pt and spouse in walker adjustment for their walker at home as well as use of a bed cane or chair to assist with bed mobility. Assessment/Goals Goal Time Frame: 2-3 visits Safe Ambulation: Yes Pt will benefit from short term PT for functional transfer and giat training for optimal mobility at home. Plan Treatment Plan: Bed Mobility, Gait, Transfers Gaol: Pt to be mod indep with bed mobility, transfers and gait. Treatment Duration: 2-3 visits Visits Per Week: 2-3 PT/Family Agrees to Plan: Yes Time Time In: 1450 Time Out: 1509 Total Billed Treatment Time: 19 Billed Treatment Time visit EVL 19 LAURA RICHEY PT Jul 15, 2018 15:09
[2018-07-15] MEDS ORDERED: RIVAROXABAN 20 MG TABLET (XARELTO) PO SCH (17:00)
--- NOTE | 2018-07-15 20:20 | NUR ---
2016-pt requesting prn oxycodone for back pain 10/06 numerically. pt also requesting prn Benadryl to be taken at the same time pt reports all pain medications make her itch. -see mar
[2018-07-15] MEDS ORDERED: PANTOPRAZOLE 20 MG TABLET (PROTONIX) PO SCH (21:00)
[2018-07-15] MEDS ORDERED: NON-FORMULARY MEDICATION 1 EA EA (Pantoprazole Sodium 20 MG) PO SCH (21:00)
[2018-07-15] MEDS ORDERED: NON-FORMULARY MEDICATION 1 EA EA (Escitalopram Oxalate 10 MG) PO SCH (21:00)
[2018-07-16 04:43] LABS: BASOPHILS % (AUTO) 0 % (0-10); EOSINOPHILS % (AUTO) 0 % (0-10); HEMATOCRIT 36 % (35-52); HEMOGLOBIN 11.3 G/DL (11.5-16.0); LYMPHOCYTES # (AUTO) 0.9 X 10^3 (1.0-4.0); LYMPHOCYTES % (AUTO) 19 % (12-44); MEAN CORPUSCULAR HEMOGLOBIN 26 PG (25-34); MEAN CORPUSCULAR HGB CONC 31 G/DL (32-36); MEAN CORPUSCULAR VOLUME 82 FL (80-99); MEAN PLATELET VOLUME 10.3 FL (7.4-10.4); MONOCYTES # (AUTO) 0.4 X 10^3 (0.0-1.0); MONOCYTES % (AUTO) 7 % (0-12); NEUTROPHILS # (AUTO) 3.6 X 10^3 (1.8-7.8); NEUTROPHILS % (AUTO) 74 % (42-75); PLATELET COUNT 316 10^3/uL (130-400); RED CELL DISTRIBUTION WIDTH 16.8 % (10.0-14.5); WHITE BLOOD COUNT 4.9 10^3/uL (4.3-11.0)
[2018-07-16 04:47] VITALS: BP 140/72
[2018-07-16] MEDS: diphenhydrAMINE 25 MG TAB (BENADRYL) PO PRN ×2 (04:50→08:40)
[2018-07-16] MEDS: oxyCODONE/APAP 10/325MG (PERCOCET 10) TABLET PO PRN ×2 (04:51→08:40)
[2018-07-16 05:04] LABS: BUN/CREATININE RATIO 11; CALCIUM 9.4 MG/DL (8.5-10.1); CARBON DIOXIDE 22 MMOL/L (21-32); CHLORIDE 107 MMOL/L (98-107); CREATININE SERUM 0.76 MG/DL (0.60-1.30); GFR ESTIMATED > 60; GLUCOSE 115 MG/DL (70-105); POTASSIUM 4.2 MMOL/L (3.6-5.0); SODIUM 140 MMOL/L (135-145)
[2018-07-16] MEDS: predniSONE 20 MG TAB PO SCH (06:01)
[2018-07-16] MEDS: CATHETER FLUSH 10 ML SYR IV SCH (06:01)
[2018-07-16 08:00] VITALS: BP 127/81
--- NOTE | 2018-07-16 10:40 | Discharge Summary ---
Diagnosis/Chief Complaint Date of Admission Jul 14, 2018 at 22:50 Date of Discharge 07/16/2018 Admission Diagnosis Admission Diagnosis See problem list Discharge Diagnosis See below Problems/Diagnosis: (1) Closed L3 vertebral fracture Assessment & Plan: - Will change to Percocet for pain control, PT to evaluate, will followup with ortho as outpatient. Patient will need DEXA as outpatient. Vit D level pending 07/16: Pain much better controlled on Percocet, Able to ambulate with walker, will set up outpatient PT Qualifiers: Qualified Codes: S32.039A - Unspecified fracture of third lumbar vertebra, initial encounter for closed fracture Status: Acute (2) Fall Qualifiers: Qualified Codes: W19.XXXA - Unspecified fall, initial encounter Status: Acute (3) Vitamin D deficiency Assessment & Plan: - Started on high dose replacement Status: Acute (4) HTN (hypertension) Assessment & Plan: - continue home meds Qualifiers: Qualified Codes: I10 - Essential (primary) hypertension Status: Chronic (5) Recurrent deep vein thrombosis (DVT) Assessment & Plan: - Continue Xarelto Status: Chronic Chief Complaint/HPI Chief Complaint/HPI 53 yo F that presented after fall. States that she was getting into her vehicle and her foot slipped and she fell hard backwards and heard a pop when she landed. States that she also hit her head on the ground. Denies any previous back injuries. States that her grandmother and mother both have poor bone health. Grandmother with hip fracture after fall. States that she is having alot of pain in her back. Denies any weakness, numbness or tingling in LE bilaterally. States that pain is worse when she is sitting up or standing. Discharge Summary-Simple/Stand Consultations Discharge Physical Examination Allergies: Coded Allergies: No Known Drug Allergies (Verified , 07/04/09) Vitals & I&Os Vital Sign - Last 12Hours Date Time Temp Pulse Resp B/P (MAP) Pulse Ox O2 Delivery O2 Flow Rate FiO2 07/16/18 08:00 96.5 66 18 127/81 (96) 98 Room Air Intake and Output 07/16/18 00:00 Intake Total 500 ml Output Total 450 ml Balance 50 ml General Appearance: Alert, Oriented X3, Cooperative, No Acute Distress HEENT: Mucous Memb Moist/[place] Respiratory: Clear to Auscultation, Normal Air Movement Cardiovascular: Regular Rate, No Murmurs Abdominal: Normal Bowel Sounds, Soft, No Tenderness, No Masses Extremities: No Edema, No Tenderness/Swelling Skin: No Rashes, No Breakdown Neuro: Strength at 5/5 X4 Ext, Sensation Intact, Other (ttp lumbar spine, no deformities or step offs) Hospital Course Was the Problem List Reviewed?: Yes See final discharge diagnosis. Other pending tests - RECOMMEND OUTPATIENT DEXA Discussion & Recommendations 53 yo F that was admitted after a fall found to have compression fracture. Pain was initially difficult to manage but improved once started on PO medications. Pain better controlled. Patient able to ambulate with walker. Will follow up as an outpatient for PT. Discussed not lifting anything over 5#s. Will have outpatient f.u with ortho. Vit D level was low. Started on high dose replacement. Will need DEXA scan as outpatient. Discharge Condition at discharge Stable Instructions to patient/family Please see electronic discharge instructions given to patient. Discharge Medications Reviewed and agree with Discharge Medication list on patient's Discharge Instruction sheet Clinical Quality Measures DVT/VTE Risk/Contraindication: Risk Factor Score Per Nursin RFS Level Per Nursing on Admit: 2=Moderate Copy Copies To 1: ASHLEY BRUNO MD, HOLLY R MD Jul 16, 2018 10:40
[2018-07-16] MEDS ORDERED: OXYC1TAB12 PO (10:42)
[2018-07-16] MEDS ORDERED: PRD20T PO (10:42)
[2018-07-16] MEDS ORDERED: CHOL500049 PO (10:45)
--- NOTE | 2018-07-16 10:46 | Discharge Instructions ---
Discharge [facility] Discharge Medications New, Converted or Re-Newed RX: RX on Chart New Medications: Cholecalciferol (Vitamin D3) (Vitamin D) 50,000 Unit Capsule 87754 UNIT PO Weekly, #12 CAP Oxycodone HCl/Acetaminophen (Percocet 10-325 mg Tablet) 1 Each Tablet 1 TAB PO Q6H PRN for PAIN-MODERATE, #90 TAB Prednisone (Prednisone) 20 Mg Tab 50 MG PO DAILY@0700, #4 TAB Continued Medications: Escitalopram Oxalate (Escitalopram Oxalate) 10 Mg Tablet 10 MG PO HS, TAB Hydrochlorothiazide (Hydrochlorothiazide) 50 Mg Tablet 50 MG PO DAILY PRN for SWELLING, TAB Hydroxyzine Pamoate (Hydroxyzine Pamoate) 50 Mg Capsule 50 MG PO QID PRN for ITCHING, CAP Ibuprofen (Advil) 200 Mg Tablet 400 MG PO Q6H PRN for PAIN-MILD, TAB Multivit with Calcium,Iron,Min (Women's Daily Formula) 1 Each Tablet 1 TAB PO DAILY, TAB Pantoprazole Sodium (Pantoprazole Sodium) 20 Mg Tablet.dr 20 MG PO HS, TAB Rivaroxaban (Xarelto) 20 Mg Tablet 20 MG PO HS, TAB Discontinued Medications: Acetaminophen (Tylenol Extra Strength) 500 Mg Tablet 500-1000 MG PO Q4H PRN for PAIN-MILD, TAB Patient Instructions Goal/Follow Up Appt: You have an appt with Dr López on July 20 @ 1140 for hospital follow up Patient Instructions: - weight limit of 5# - Recommend referral to Outpatient PT Activity & Diet Discharge Diet: No Restrictions Activity as Tolerated: Yes Copy Copies To 1: ASHLEY LÓPEZ MD, HOLLY R MD Jul 16, 2018 10:44
--- NOTE | 2018-07-16 11:54 | Physical Therapy Progress Note ---
Therapy Progress Note Visit made. Pt reports she is going home today, reports no PT needs at this time. Reports she has been getting up on her own using her walker. Reviewed importance of frequent mobility and ambulation. Pt voiced understanding. No PT needs at this time. LAURA RICHEY PT Jul 16, 2018 11:54
[2018-07-16 12:25] VITALS: BP 127/81
--- NOTE | 2018-07-16 12:25 | NUR ---
DISCHARGE INSTRUCTIONS GIVEN TO PATIENT WITH TIME ALLOWED FOR QUESTIONS. IV REMOVED WITH CATHETER TIP INTACT. PATIENT STABLE ON ROOM AIR. REPORTS PAIN AT A TOLERABLE LEVEL. PERSONAL BELONGINGS GATHERED. PATIENT LEFT VIA WHEELCHAIR ACCOMPANIED BY STAFF AND FAMILY. LEFT FACILITY VIA PERSONAL VEHICLE.
== END 2018-07-16 12:25 | disposition home or self-care (01) ==
LOC: EDUNIT# 20:04 → ER 20:05 → 4TH 22:50
PROVIDERS: ADMIT Family Medicine; ATTEND Family Medicine
DX: S32.039A Unspecified fracture of third lumbar vertebra, initial encounter for closed fracture (principal); E55.9 Vitamin D deficiency, unspecified; I10 Essential (primary) hypertension; I82.599 Chronic embolism and thrombosis of other specified deep vein of unspecified lower extremity; V48.4XXA Person boarding or alighting a car injured in noncollision transport accident, initial encounter; Z79.01 Long term (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
CPT/HCPCS: 36415; 70450; 72125; 72128; 72131; 73502; 80048; 80053; 80320; 82306; 83735; 85025; 85610; 85730; G0378

== ENCOUNTER → 2018-07-28 | Outpatient (CLI) | payer MEDICAID ==
[~2018-07-28] MED LIST changes: +ACET-2267 PO; +CHOL500049 PO; +ESCI10TA55 PO; +HYDR50CA3 PO; +HYDR50TA3 PO; +IBUP-30 PO; +MULT-141 PO; +OXYC1TAB12 PO; +PANT20TA3 PO; +PRD20T PO; +RIVA20TA PO
--- NOTE | 2018-07-28 09:54 | Diagnostic Imaging Report ---
CLINICAL INDICATION: Patient is status post fall two weeks ago and has lumbar spine fracture and low back pain and bilateral hip pain. EXAM: MRI of the lumbar spine performed without IV contrast. Sequences include sagittal T2, sagittal T1, sagittal T2 fat-sat, axial T2, and axial T1. COMPARISON: CT scan of the thoracic and lumbar spine dated 07/14/2018. FINDINGS: Again seen fracture of the L3 vertebra with slight increased compression deformity which is now roughly 50% compressed centrally and anteriorly with more localized Schmorl's node type compression deformity seen. There is marrow edema seen throughout the vertebra with sparing of the posterior elements and pedicles. There is no retropulsed fragment. There is no other lumbar spine fracture or dislocation. The visualized portions of the distal thoracic spinal cord, conus medullaris, and cauda equina nerve roots are unremarkable. The conus medullaris tip is seen at the lower L1 vertebral body level. There is no significant paraspinal soft tissue abnormality. L1-L2: Unremarkable. L2-L3: There is diffuse disc bulge with mild bilateral facet arthropathy. There is mild central canal narrowing and mild right neural foramen narrowing. There is no significant left neural foramen narrowing. L3-L4: There is mild diffuse disc bulge and mild bilateral facet arthropathy. There is no significant central canal narrowing. There is mild bilateral neural foramen narrowing. L4-L5: There is mild facet arthropathy and ligament flavum buckling. There is mild left neural foramen narrowing and no significant right neural foramen narrowing. There is no significant central canal narrowing. L5-S1: There is no significant central spinal canal or neural foramen narrowing. IMPRESSION: 1: There is interval progression of loss of height of the L3 vertebral body compression fracture deformity with no retropulsed fragment. There is marrow edema seen throughout the L3 vertebra with sparing of the posterior elements. 2: Lumbar spine degenerative changes, as described above. Dictated by: Dictated on workstation # [id number]
== END ==
LOC: RAD 08:55
PROVIDERS: ATTEND Physician Assistant
DX: S32.030A Wedge compression fracture of third lumbar vertebra, initial encounter for closed fracture (principal); M51.36 Other intervertebral disc degeneration, lumbar region; M46.86 Other specified inflammatory spondylopathies, lumbar region; M48.061 Spinal stenosis, lumbar region without neurogenic claudication; M51.26 Other intervertebral disc displacement, lumbar region; M51.46 Schmorl's nodes, lumbar region; W19.XXXA Unspecified fall, initial encounter
CPT/HCPCS: 72148

== ENCOUNTER 2018-07-30 10:12 | Outpatient (CLI) | payer MEDICAID ==
[~2018-07-30] VITALS: Ht 160 cm; Wt 86.2 kg
== END 2018-07-30 12:38 | disposition home or self-care (01) ==
LOC: PREOP 10:12
PROVIDERS: ATTEND Orthopaedic Surgery Orthopaedic Surgery of the Spine
DX: Z01.818 Encounter for other preprocedural examination (principal)

== ENCOUNTER 2018-08-02 08:33 | Day surgery (SDC) | payer MEDICAID ==
[~2018-08-02] VITALS: Ht 160 cm; Wt 90.7 kg
[2018-08-02] VITALS (9 sets, daily range): BP systolic 102–145; BP diastolic 51–98
--- OUTSIDE RECORDS SUMMARY | 2018-08-02 08:37 | XMS REPORT | Clinical Summary ---
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 If you do not see the information that you expected, contact Release of Information in the Health Information Management department at [phone] for further assistance in locating additional records.[facility] Allergies No Known Allergies Medications End Date Status Medication Sig Dispensed Refills Start Date Active WARFARIN SODIUM (COUMADIN Take by 0 PO) mouth. 6 mg on Thursday, Thursday,, and Thursday, then 7 mg on Thursday, , and Thursday Active hydrochlorothiazide Take 50 mg by 0 (HYDRODIURIL) 50 mg mouth daily. tablet Active Problems Problem Noted Date Leg edema, left 02/27/2014 Social History Date Tobacco Use Types Packs/Day Years Used Never Smoker Sex Assigned at Date Recorded Not on file Industry Job Start Date Occupation Not on file Not on file Not on file Travel End Travel History Travel Start No recent travel history available. Last Filed Vital Signs Time Taken Vital Sign Reading 02/27/2014 2:42 PM [employer] Blood Pressure 116/77 02/27/2014 2:42 PM [employer] Pulse 96 02/27/2014 2:41 PM [employer] Temperature 36.6 C (97.9 F) 02/27/2014 2:41 PM [employer] Respiratory Rate 18 - Oxygen Saturation - - Inhaled Oxygen - Concentration 02/27/2014 2:41 PM [employer] Weight 84.5 kg (186 lb 3.2 oz) 02/27/2014 2:41 PM [employer] Height 162.6 cm (5' 4") 02/27/2014 2:41 PM [employer] Body Mass Index 31.96 Plan of Treatment Health Maintenance Due Date Last Done Comments PHYSICAL (COMPREHENSIVE) 1973 EXAM HIV SCREENING 1981 DTAP/TDAP VACCINES (1 - 1984 Tdap) CERVICAL CANCER SCREENING 1996 BREAST CANCER SCREENING 2006 COLORECTAL CANCER 2016 SCREENING SHINGLES RECOMBINANT 2016 VACCINE (1 of 2) INFLUENZA VACCINE 12/28/2018 Results Not on filefrom Last 3 Months
--- OUTSIDE RECORDS SUMMARY | 2018-08-02 08:38 | XMS REPORT ---
Author Author Migration, Doctor Organization [facility] Address Unknown Phone Unavailable Care Team Providers Care Senior Hr Business Partner Name Role Phone Migration, Doctor Unavailable Unavailable PROBLEMS Type Condition ICD9-CM Code MDH66-VC Code Onset Dates Condition Status SNOMED Code Problem Factor V Leiden D68.51 Active 814416987 Problem Thyroid follicular adenoma D34 Active 940516886 Problem Hypertriglyceridemia E78.1 Active 415116777 Problem History of DVT (deep vein thrombosis) Z86.718 Active 481687759 Problem Presence of IVC filter Z95.828 Active 104488473 Problem 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 Active 091994078 Problem Pelvic pain R10.2 Active 50053749 Problem Morbid obesity E66.01 Active 442431970 Problem Generalized anxiety disorder F41.1 Active 774493954 Problem Obstructive sleep apnea G47.33 Active 40641038 Problem group home (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 Active 262208398 Problem Peripheral edema R60.9 Active 869365767 Problem Excessive daytime sleepiness G47.19 Active 025378478246 Problem Gastroesophageal reflux disease, esophagitis presence not specified K21.9 Active 508308230 Problem Thyroid nodule E04.1 Active 289031421 ALLERGIES No Information ENCOUNTERS Encounter Location Date Diagnosis [place] [id number] [place] [address] 98397- 3461 Jun, [facility] [id number] [place] [address] 91154- 4473 Jun, Closed compression fracture of L3 lumbar vertebra with routine healing, subsequent encounter S32.030D and Drug-induced constipation K59.03 [facility] [id number] [place] [address] 93123- 0644 Jun, [facility] [address] [place] [address] 71598- 7671 Jun, [facility] [id number] [place] [address] 23963- 5092 19 Apr, 2018 [facility] [address] 18639- 6119 18 Apr, 2018 Morbid obesity E66.01 [facility] [address] 16439- 9797 12 Apr, 2018 Morbid obesity E66.01 ; Hypertriglyceridemia E78.1 ; Gastroesophageal reflux disease, esophagitis presence not specified K21.9 and Joint pain M25.50 [facility] [address] 36751- 4036 Feb, [facility] [address] 09966- 8291 Feb, [facility] [address] 80056 -3906 Jan, Acute bacterial conjunctivitis H10.30 [facility] [address] 34314- 6597 Dec, [facility] [address] 78131- 4971 04 Dec, 2017 [facility] [address] 23808- 2137 17 Nov, 2017 [place] [id number] [place] [address] 15559- 0123 07 Nov, 2017 Obstructive sleep apnea G47.33 ; Morbid obesity E66.01 and Gastroesophageal reflux disease, esophagitis presence not specified K21.9 [facility] [id number] [place] [address] [id number] 06 Nov, 2017 Encounter for examination of eyes and vision without abnormal findings Z01.00 [facility] [id number] [place] [address] 94402- 7886 Oct, Thyroid nodule E04.1 and Screening for breast cancer Z12.31 [facility] [address] 48781- 4217 Oct, History of DVT (deep vein thrombosis) Z86.718 ; Thyroid nodule E04.1 and Gastroesophageal reflux disease, esophagitis presence not specified K21.9 [place] [id number] [place] [address] 24937- 0767 Oct, [facility] [id number] [place] [address] 11049- 0980 Sep, [place] [address] 57259- 4119 Aug, [place] [id number] [place] [address] 37129- 5085 Aug, [place] [id number] [place] [address] 02454- 0254 Aug, Acute pain of left shoulder M25.512 and Thyroid nodule E04.1 [place] [address] 30259- 0537 July, Superior glenoid labrum lesion of left shoulder, subsequent encounter S43.432D [place] [id number] [place] [address] 34717- 3441 Jun, History of DVT (deep vein thrombosis) Z86.718 [place] [id number] [place] [address] 24410- 8780 Jun, History of DVT (deep vein thrombosis) Z86.718 [facility] [id number] [place] [address] 63644- 4219 Jun, Impingement syndrome, shoulder, left M75.42 [place] [id number] [place] [address] 62689- 7178 May, Subacromial bursitis of left shoulder joint M75.52 [facility] [id number] [place] [address] 41766- 9164 09 May, 2017 [facility] [address] 24515- 1365 May, Hypertriglyceridemia E78.1 ; group home (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 and Excessive daytime sleepiness G47.19 [place] [address] [place] [address] 83448- 2540 May, History of DVT (deep vein thrombosis) Z86.718 ; Generalized anxiety disorder F41.1 ; Hypertriglyceridemia E78.1 ; intermission coordinator (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 ; Subacromial bursitis of left shoulder joint M75.52 and Excessive daytime sleepiness G47.19 [place] [address] [place] [address] 08806- 2000 May, [place] [id number] [place] [address] 51045- 6467 May, group home (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 [place] [id number] [place] [address] 54927- 1436 Apr, group home (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 [place] [address] [place] [address] 94785 2543 Apr, group home (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 [place] [id number] [place] [address] 48151 2546 Apr, intermission coordinator (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 [place] [address] [place] [address] 54062 2546 Apr, [place] [address] [place] [address] 50087 2546 Apr, intermission coordinator (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 [place] [address] [place] [address] 77036 2546 13 Apr, 2017 group home (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 [place] [address] [place] [address] 50024- 2546 Apr, intermission coordinator (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 [facility] [address] [address]- 1666 Apr, group home (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 [facility] [address] [place] [address] 53170 2546 Apr, intermission coordinator (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 [facility] [id number] [place] [address] 68544 2546 Apr, group home (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 [facility] [address] [place] [address] 11495 2546 Mar, intermission coordinator (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 [facility] [id number] [place] [address] 06133- 9736 Mar, [facility] [id number] [place] [address] 64916- 4749 Mar, group home (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 [facility] [id number] [place] [address] [id number] Jan, Dental examination Z01.20 [facility] [id number] [place] [address] [phone] Jan, [facility] [id number] [place] [address] 61003- 7496 Jan, intermission coordinator (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 [facility] [address] [place] [address] 63756 2546 17 Jan, 2017 History of DVT (deep vein thrombosis) Z86.718 [place] [id number] [place] [address] 16381- 1856 07 Jan, 2017 Generalized anxiety disorder F41.1 and Peripheral edema R60.9 [place] [id number] [place] [address] 88517- 3523 Nov, History of DVT (deep vein thrombosis) Z86.718 [facility] [address] [address]- 0671 Nov, intermission coordinator (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 [facility] [address] [address] Nov, Acute non-recurrent maxillary sinusitis J01.00 [facility] [address] [place] [address] 37370- 9979 Oct, intermission coordinator (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 [facility] [address] [place] [address] 33983- 5652 Oct, Personal history of venous thrombosis and embolism Z86.718 [place] [id number] [place] [address] 64568- 2501 Sep, [facility] [id number] [place] [address] 83704- 4407 Sep, Personal history of venous thrombosis and embolism Z86.718 [facility] [address] [place] [address] 52888- 1849 Sep, group home (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 [place] [address] [address]- 9375 Sep, group home (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 [facility] [address] [place] [address] 83729- 5185 Sep, Generalized anxiety disorder F41.1 and History of DVT (deep vein thrombosis) Z86.718 [facility] [address] [place] [address] 08921- 3401 Aug, History of DVT (deep vein thrombosis) Z86.718 ; Generalized anxiety disorder F41.1 ; intermission coordinator (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 ; Pelvic pain R10.2 ; Hypertriglyceridemia E78.1 ; Excessive daytime sleepiness G47.19 ; Colon cancer screening Z12.11 ; Screening for breast cancer Z12.39 ; Peripheral edema R60.9 and Gastroesophageal reflux disease, esophagitis presence not specified K21.9 [place] [id number] [place] [address] 66212- 0403 Aug, [place] [address] [id number] [place] [address] 52862- 4621 July, [place] [address] 13848- 3573 July, History of DVT (deep vein thrombosis) Z86.718 [place] [id number] [place] [address] 31539- 4891 Jun, Generalized anxiety disorder F41.1 [place] [address] [id number] [place] [address] 21991- 5453 Jun, History of DVT (deep vein thrombosis) Z86.718 [place] [address] [id number] [place] [address] 71722- 6567 Jun, History of DVT (deep vein thrombosis) Z86.718 [place] [id number] [place] [address] 33899- 9051 Jun, History of DVT (deep vein thrombosis) Z86.718 [place] [address] [id number] [place] [address] 75283- 8511 Jun, History of DVT (deep vein thrombosis) Z86.718 [place] [id number] [place] [address] 83610- 1972 May, History of DVT (deep vein thrombosis) Z86.718 [place] [address] [id number] [place] [address] 03375- 0285 May, group home (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 [place] [address] [place] [address] 73416- 8755 May, intermission coordinator (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 [place] [address] [place] [address] 57740- 2823 May, History of DVT (deep vein thrombosis) Z86.718 [facility] [address] [place] [address] 63375 -8648 27 Apr, 2016 Bacterial conjunctivitis of left eye H10.9 and H/O motion sickness Z87.898 [facility] [id number] [place] [address] 96784- 8727 24 Apr, 2016 History of DVT (deep vein thrombosis) Z86.718 [place] [id number] [place] [address] 66041- 6032 23 Apr, 2016 History of DVT (deep vein thrombosis) Z86.718 [place] [id number] [place] [address] 15133- 0018 15 Apr, 2016 History of DVT (deep vein thrombosis) Z86.718 [place] [id number] [place] [address] 43813- 4852 14 Apr, 2016 intermission coordinator (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 [place] [id number] [place] [address] 97289- 0060 Mar, [place] [id number] [place] [address] 62364- 0681 Mar, group home (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 [place] [address] [place] [address] 40673- 8844 Mar, Hypertriglyceridemia E78.1 and group home (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 [place] [id number] [place] [address] 32828- 1605 Feb, group home (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 [place] [id number] [place] [address] 95835- 2064 Feb, group home (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 [place] [address] [place] [address]- 0082 Feb, intermission coordinator (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 [place] [id number] [place] [address] 64087- 8666 Dec, [place] [id number] [place] [address] 17116 2546 Nov, [place] [id number] [place] [address] 68922- 0106 Nov, History of DVT (deep vein thrombosis) Z86.718 ; Tremulousness R25.1 ; Generalized anxiety disorder F41.1 ; Peripheral edema R60.9 and Hypertriglyceridemia E78.1 [place] [id number] [place] [address] 44869- 4367 Oct, History of DVT (deep vein thrombosis) Z86.718 [place] [id number] [place] [address] 00578- 6596 Oct, [place] [id number] [place] [address] 78435 2542 Sep, History of DVT (deep vein thrombosis) Z86.718 [place] [id number] [place] [address] 25984- 2006 Sep, group home (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 [place] [id number] [place] [address] 94163 2546 July, [place] [id number] [place] [address] 08425 2546 July, intermission coordinator (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 [place] [id number] [place] [address] 34612 2546 July, group home (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 [place] [address] [place] [address] 20965 2546 Jun, intermission coordinator (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 [facility] [id number] [place] [address] 57211 -9842 Jun, Coccyx pain M53.3 ; Encounter for therapeutic drug level monitoring Z51.81 and group home current 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.01 [facility] [id number] [place] [address] 84754- 7659 May, Abnormal mammogram R92.8 [facility] [address] 09368 -2285 May, [facility] [address] 62114 -9242 May, Acute vaginitis N76.0 and Encounter for other screening for malignant neoplasm of breast Z12.39 [place] [address] 13814- 8939 Apr, [place] [address] 81563- 4960 Apr, [place] [address] 46116- 0798 Apr, Peripheral edema R60.9 [place] [address] 43366- 5935 Apr, intermission coordinator (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 [place] [address] [id number] [place] [address] 27043- 4064 Apr, Peripheral edema R60.9 and group home (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 [place] [address] [id number] [place] [address] 93505- 2320 Apr, intermission coordinator (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 [place] [id number] [place] [address] 54372- 0859 Apr, [place] [address] 91325- 8610 Apr, group home (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 [place] [id number] [place] [address] 80353- 1228 Apr, Peripheral edema R60.9 [place] [id number] [place] [address] 08718- 7349 Mar, group home (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 [place] [id number] [place] [address] 75329- 3995 Mar, intermission coordinator (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 and Hypertriglyceridemia E78.1 [place] [address] 09973- 1835 Mar, group home (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 [place] [id number] [place] [address] 20200- 4470 Mar, intermission coordinator (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 [place] [id number] [place] [address] 13704- 8521 Mar, [place] [id number] [place] [address] 73269- 1551 Mar, intermission coordinator (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 ; Hypertriglyceridemia E78.1 ; Personal history of venous thrombosis and embolism Z86.718 and Lump R22.9 [place] [id number] [place] [address] 05329- 2850 Mar, Personal history of venous thrombosis and embolism Z86.718 [place] [address] [place] [address] 95717- 0801 Mar, Personal history of venous thrombosis and embolism Z86.718 [place] [id number] [place] [address] 40885- 0952 Mar, [place] [id number] [place] [address] 15040- 0069 Dec, Personal history of venous thrombosis and embolism Z86.718 [facility] [address] [address]- 6478 Dec, Personal history of venous thrombosis and embolism V12.51 [facility] [address] [address]- 5876 28 Nov, 2014 Personal history of venous thrombosis and embolism V12.51 [facility] [address] [address] 2546 Nov, Personal history of venous thrombosis and embolism V12.51 [facility] [address] [address] 2546 17 Nov, 2014 Personal history of venous thrombosis and embolism V12.51 [facility] [address] [address] 2546 Nov, Personal history of venous thrombosis and embolism V12.51 [facility] [address] [address]- 9540 Nov, [facility] [address] [place] [address] 99591- 1404 Oct, Dysuria 788.1 [facility] [address] [place] [address] 69622- 8250 Oct, Personal history of venous thrombosis and embolism V12.51 [facility] [address] [address]- 2252 Oct, [facility] [id number] [address]- 2548 Oct, Personal history of venous thrombosis and embolism V12.51 [facility] [address] [address]- 5406 Sep, Personal history of venous thrombosis and embolism V12.51 [facility] [id number] [address]- 8417 Sep, Personal history of venous thrombosis and embolism V12.51 [facility] [address] [facility] [id number] [address]- 0726 19 Aug, 2014 Personal history of venous thrombosis and embolism V12.51 [facility] [address] [facility] [id number] [place] [address]- 0686 18 Aug, 2014 Personal history of venous thrombosis and embolism V12.51 [facility] [address] [facility] [id number] [address]- 2176 15 Aug, 2014 Personal history of venous thrombosis and embolism V12.51 [facility] [address] [facility] [id number] [place] [address]- 4066 July, Generalized anxiety disorder 300.02 ; Abdominal pain, left lower quadrant 789.04 and Personal history of venous thrombosis and embolism V12.51 [facility] [address] [facility] [id number] [address]- 9486 14 Jun, 2014 [facility] [address] [address]- 1976 Jun, [facility] [id number] [address]- 6794 May, [facility] [address] [place] [address]- 9816 27 May, 2014 [facility] [id number] [address]- 2066 May, [facility] [id number] [address]- 2546 17 May, 2014 [facility] [address] [facility] [id number] [address]- 2546 May, [facility] [address] [facility] [id number] [place] [address] 2546 May, [facility] [address] [facility] [id number] [address]- 2546 May, [facility] [id number] [address]- 9852 May, [facility] [place] [facility] [address] [id number] [place] [address]- 8567 Apr, [facility] [place] [facility] [address] [id number] [place] [address]- 3110 Apr, [facility] [place] [facility] [address] [id number] [place] [address]- 2552 Apr, [facility] [place] [facility] [address] [id number] [place] [address]- 6870 Apr, [facility] [place] [facility] [address] [id number] [place] [address]- 0114 Apr, [facility] [place] [facility] [address] [id number] [place] [address]- 3703 Mar, [facility] [place] [facility] [address] [id number] [place] [address]- 2296 Mar, [facility] [place] [facility] [address] [id number] [place] [address]- 3834 Mar, [facility] [place] [facility] [address] [id number] [place] [address]- 5315 Mar, [facility] [place] [facility] [address] [id number] [place] [address]- 1155 Mar, [facility] [place] [facility] [address] [id number] [place] [address]- 4565 Mar, [facility] [place] [facility] [address] [id number] [place] [address]- 2[address] Feb, [facility] [place] [facility] [address] [id number] [place] [address] Feb, [facility] [place] [facility] [address] [id number] [place] [address] Feb, [facility] [place] [facility] [address] [id number] [place] [address]- [address] Feb, [facility] [place] [facility] [address] [id number] [place] [address] Feb, [facility] [place] [facility] [address] [id number] [place] [address] Feb, [facility] [place] [facility] [address] [id number] [place] [address] [address] Feb, [facility] [place] [facility] [address] [id number] [place] [address] [address] Feb, [facility] [place] [facility] [address] [id number] [place] [address] Feb, [facility] [place] [facility] [address] [id number] [place] [address] Feb, [facility] [place] [facility] [address] [id number] [place] [address]- [address] Jan, [facility] [place] [facility] [address] [id number] [place] [address]- [address] Jan, [facility] [place] [facility] [address] [id number] [place] [address] Jan, [facility] [place] [facility] [address] [id number] [place] [address]- [address] Jan, [facility] [place] [facility] [address] [id number] [place] [address] Jan, [facility] [place] [facility] [address] [id number] [place] [address] Jan, [facility] [place] [facility] [address] [id number] [place] [address] Jan, [facility] [place] [facility] [address] [id number] [place] [address] Jan, [facility] [place] [facility] [address] [id number] [place] [address]- [address] Jan, [facility] [place] [facility] [address] [id number] [place] [address] Jan, [facility] [place] [facility] [address] [id number] [place] [address] Dec, [facility] [place] [facility] [address] [id number] [place] [address]- 1625 Dec, [facility] [place] [facility] [address] [id number] [place] [address]- 2744 Dec, [facility] [place] [facility] [address] [id number] [place] [address]- 2701 Dec, [facility] [place] [facility] [address] [id number] [place] [address]- 9888 Dec, [facility] [place] [facility] [address] [id number] [place] [address]- 8308 Dec, [facility] [place] [facility] [address] [id number] [place] [address]- 1494 Dec, [facility] [place] [facility] [address] [id number] [place] [address]- 4901 Dec, [facility] [place] [facility] [address] [id number] [place] [address]- 0882 Dec, [facility] [place] [facility] [address] [id number] [place] [address]- 8308 Dec, [facility] [place] [facility] [address] [id number] [place] [address]- 4261 Dec, [facility] [place] [facility] [address] [id number] [address] 7913 Dec, [facility] [place] [facility] [address] [id number] [place] [address]- 8354 Dec, [facility] [place] [facility] [address] [id number] [place] [address]- 0070 Dec, [facility] [place] [facility] [address] [id number] [address] Dec, [facility] [place] [facility] [address] [id number] [address] 2549 30 Sep, 2013 [facility] [place] [facility] [address] [id number] [place] [address] 2546 30 Sep, 2013 [facility] [place] [facility] [address] [id number] [place] [address] 2546 26 Sep, 2013 [facility] [place] [facility] [address] [id number] [place] [address] 2546 26 Sep, 2013 [facility] [place] [facility] [address] [id number] [place] [address] 254 24 Sep, 2013 [facility] [place] [facility] [address] [id number] [place] [address]- 8994 24 Sep, 2013 [facility] [place] [facility] [address] [id number] [place] [address]- 4754 23 Nov, 2013 [facility] [place] [facility] [address] [id number] [place] [address]- 8054 23 Nov, 2013 [facility] [place] [facility] [address] [id number] [place] [address]- 1254 18 Nov, 2013 [facility] [place] [facility] [address] [id number] [place] [address] 2542 18 Nov, 2013 [facility] [place] [facility] [address] [id number] [place] [address] 2549 17 Sep, 2013 [facility] [place] [facility] [address] [id number] [place] [address] 2544 17 Nov, 2013 [facility] [place] [facility] [address] [id number] [address]- 2543 11 Nov, 2013 [facility] [place] [facility] [address] [id number] [place] [address] 2546 11 Nov, 2013 [facility] [place] [facility] [address] [id number] [place] [address] 2544 10 Nov, 2013 [facility] [place] [facility] [address] [id number] [place] [address] 2540 10 Nov, 2013 [facility] [place] [facility] [address] [id number] [place] [address]- 6547 08 Nov, 2013 [facility] [place] [facility] [address] [id number] [place] [address]- 5648 08 Nov, 2013 [facility] [place] [facility] [address] [id number] [place] [address] 9476 Sep, [facility] [place] [facility] [address] [id number] [place] [address]- 1494 Sep, [facility] [place] [facility] [address] [id number] [place] [address]- 0225 Sep, [facility] [place] [facility] [address] [id number] [place] [address]- 6305 Sep, [facility] [place] [facility] [address] [id number] [place] [address]- 0816 Sep, [facility] [place] [facility] [address] [id number] [place] [address]- 7640 Sep, [facility] [place] [facility] [address] [id number] [place] [address]- 3652 Aug, [facility] [place] [facility] [address] [id number] [place] [address]- 4610 Aug, [facility] [place] [facility] [address] [id number] [place] [address]- 7548 Aug, [facility] [place] [facility] [address] [id number] [place] [address]- 2339 Aug, [facility] [place] [facility] [address] [id number] [place] [address]- 6371 24 Aug, 2013 [facility] [place] [facility] [address] [id number] [place] [address]- 1296 Aug, [facility] [place] [facility] [address] [id number] [place] [address]- 3897 Aug, [facility] [place] [facility] [address] [id number] [place] [address]- 0698 Aug, [facility] [place] [facility] [address] [id number] [place] [address]- 0607 Aug, [facility] [place] [facility] [address] [id number] [place] [address]- 0937 Aug, [facility] [place] [facility] [address] [id number] [place] [address]- 8127 Aug, [facility] [place] [facility] [address] [id number] [place] [address]- 9239 July, [facility] [place] [facility] [address] [id number] [place] [address]- 3408 July, [facility] [place] [facility] [address] [id number] [place] [address]- 8566 Jun, [facility] [place] [facility] [address] [id number] [place] [address]- 5810 Jun, [facility] [place] [facility] [address] [id number] [place] [address]- 8197 Jun, [facility] [place] [facility] [address] [id number] [place] [address]- 8733 Jun, [facility] [place] [facility] [address] [id number] [place] [address]- 8970 Jun, [facility] [place] [facility] [address] [id number] [place] [address]- 9084 Jun, [facility] [place] [facility] [address] [id number], [place] [address]- 1557 Jun, [facility] [place] [facility] [address] [id number] [place] [address]- 0931 Jun, [facility] [place] [facility] [address] [id number] [place] [address]- 2169 Jun, [facility] [place] [facility] [address] [id number] [place] [address]- 7545 Jun, [facility] [place] [facility] [address] [id number] [place] [address]- 3046 10 Jun, 2013 [facility] [place] [facility] [address] [id number] [place] [address]- 3537 Jun, [facility] [place] [facility] [address] [id number] [place] [address]- 9614 May, [facility] [place] [facility] [address] [id number] [place] [address]- 0544 May, [facility] [place] [facility] [address] [id number] [place] [address]- 9574 May, [facility] [place] [facility] [address] [id number] [place] [address]- 2729 May, [facility] [place] [facility] [address] [id number] [place] [address]- 0524 May, [facility] [place] [facility] [address] [id number] [place] [address]- 2852 May, [facility] [place] [facility] [address] [id number] [place] [address]- 2717 May, [facility] [place] [facility] [address] [id number] [place] [address]- 9359 May, [facility] [place] [facility] [address] [facility] [id number] [place] [address]- 4453 May, [facility] [place] [facility] [address] [id number] [place] [address]- 2440 May, [facility] [place] [facility] [address] [id number] [place] [address]- 5643 May, [facility] [place] [facility] [address] [id number] [place] [address]- 2378 May, [facility] [place] [facility] [address] [id number] [place] [address]- 4236 Apr, [facility] [place] [facility] [address] [id number] [place] [address]- 2250 Apr, [facility] [place] [facility] [address] [id number] [place] [address]- 6642 Apr, [facility] [place] [facility] [address] [id number] [place] [address]- 3946 Apr, [facility] [place] [facility] [address] [id number] [place] [address] 2546 Apr, [facility] [place] [facility] [address] [id number] [place] [address] 2546 Apr, [facility] [place] [facility] [address] [id number] [place] [address] 2546 Apr, [facility] [place] [facility] [address] [id number] [place] [address]- 5056 Apr, [facility] [place] [facility] [address] [facility] [id number] [place] [address]- 2666 Apr, [facility] [place] [facility] [address] [id number] [place] [address]- 7625 Apr, [facility] [place] [facility] [address] [id number] [place] [address]- 4902 Apr, [facility] [place] [facility] [address] [facility] [id number] [place] [address]- 2515 Apr, [facility] [place] [facility] [address] [facility] [id number] [place] [address]- 3367 Apr, [facility] [place] [facility] [address] [id number] [place] [address]- 2543 Apr, [facility] [place] [facility] [address] [id number] [place] [address]- 2546 Apr, [facility] [place] [facility] [address] [id number] [place] [address]- 2546 Apr, [facility] [place] [facility] [address] [facility] [id number] [place] [address]- 2546 13 Apr, 2013 [facility] [place] [facility] [address] [id number] [place] [address]- 6036 13 Jan, 2013 [facility] [place] [facility] [address] [id number] [place] [address]- 5447 Jan, [facility] [place] [facility] [address] [id number] [place] [address]- 3096 08 Jan, 2013 [facility] [place] [facility] [address] [id number] [place] [address]- 1828 Jan, [facility] [place] [facility] [address] [id number] [place] [address]- 8659 Jan, [facility] [place] [facility] [address] [id number] [place] [address]- 0190 Jan, [facility] [place] [facility] [address] [id number] [place] [address]- 5711 Jan, [facility] [place] [facility] [address] [id number] [place] [address]- 2872 Dec, [facility] [place] [facility] [address] [id number] [place] [address]- 1925 Dec, [facility] [place] [facility] [address] [id number] [place] [address]- 4359 Dec, [facility] [place] [facility] [address] [id number] [place] [address]- 7570 Nov, [facility] [place] [facility] [address] [id number] [place] [address]- 7413 10 Nov, 2012 [facility] [place] [facility] [address] [id number] [place] [address]- 3859 05 Nov, 2012 [facility] [place] [facility] [address] [id number] [place] [address]- 3806 04 Nov, 2012 [facility] [place] [facility] [address] [id number] [place] [address]- 0726 Oct, [facility] [place] [facility] [address] [id number] [place] [address]- 7235 Oct, [facility] [place] [facility] [address] [id number] [place] [address]- 5865 Oct, [facility] [place] [facility] [address] [id number] [place] [address]- 0715 Oct, [facility] [place] [facility] [address] [id number] [place] [address]- 2569 Oct, [facility] [place] [facility] [address] [id number] [place] [address]- 2778 Sep, [facility] [place] [facility] [address] [id number] [place] [address]- 5669 Sep, [facility] [place] [facility] [address] [id number] [place] [address]- 1047 Sep, [facility] [place] [facility] [address] [id number] [place] [address]- 4283 Sep, [facility] [place] [facility] [address] [id number] [place] [address]- 6497 Sep, [facility] [place] [facility] [address] [id number] [place] [address]- 1990 Sep, [facility] [place] [facility] [address] [id number] [place] [address]- 6862 Sep, [facility] [place] [facility] [address] [id number] [place] [address]- 7528 Aug, [facility] [place] [facility] [address] [id number] [place] [address]- 7307 Aug, [facility] [place] [facility] [address] [id number] [place] [address]- 8538 July, [facility] [place] [facility] [address] [id number] [place] [address]- 1374 Jun, [facility] [place] [facility] [address] [id number] [place] [address]- 9447 Jun, [facility] [place] [facility] [address] [id number] [place] [address]- 8395 Jun, [facility] [address] [id number] [place] [address]- 8100 Apr, [facility] [address] [id number] [place] [address]- 8116 Apr, [facility] [address] [id number] [place] [address]- 1656 Apr, [facility] [facility] [address] [id number] [place] [address]- 4926 Mar, [facility] [address] [id number] [place] [address]- 3441 24 Mar, 2012 [facility] [address] [id number] [place] [address]- [address] 2012 [facility] [address] [id number] [place] [address]- 1542 Mar, [facility] [address] [id number] [place] [address]- 7869 Mar, [facility] [address] [id number] [place] [address]- 7526 14 Feb, 2012 [facility] [address] [id number] [place] [address]- 4852 14 Feb, 2012 [facility] [address] [id number] [place] [address]- 9485 13 Jan, 2012 [facility] [address] [id number] [place] [address]- 6746 13 Jan, 2012 [facility] [address] [id number] [place] [address]- 2304 13 Jan, 2012 [facility] [address] [id number] [place] [address]- 6117 13 Jan, 2012 [facility] [address] [id number] [place] [address]- 4074 Jan, [facility] [place] [facility] [address] [id number] [place] [address]- 2129 Jan, [facility] [place] [facility] [address] [id number] [place] [address]- 8031 Jan, [facility] [place] [facility] [address] [id number] [place] [address]- 1217 Dec, [facility] [place] [facility] [address] [id number] [place] [address]- 8095 Dec, [facility] [place] [facility] [address] [id number] [place] Dec, [facility] [place] [facility] [address] [id number] [place] [address]- 2646 Dec, [facility] [place] [facility] [address] [id number] [place] [address]- 5012 Dec, [facility] [place] [facility] [address] [id number] [place] [address]- 4981 Dec, [facility] [place] [facility] [address] [id number] [place] [address]- 4213 Dec, [facility] [place] [facility] [address] [id number] [place] [address]- 4538 Dec, [facility] [place] [facility] [address] [id number] [place] [address]- 1019 Dec, [facility] [place] [facility] [address] [id number] [address]- 0864 Dec, [facility] [place] [facility] [address] [id number] [place] [address]- 1433 Oct, [facility] [place] [facility] [address] [id number] [place] [address]- 1738 Oct, [facility] [place] [facility] [address] [id number], [place] [address]- 4027 Aug, [facility] [place] [facility] [address] [id number], [place] [address]- 2792 14 Aug, 2011 [facility] [address] [id number] [place] [address]- 5452 July, [facility] [address] [id number] [place] [address]- 6706 Jun, [facility] [address] [facility] [id number] [place] [address]- 8596 Jun, [facility] [address] [id number] [place] [address]- 5277 May, [facility] [address] [id number] [place] [address]- 2582 Apr, [facility] [place] [facility] [address] [facility] [id number] [place] [address]- 3566 Apr, [facility] [address] [facility] [id number] [address]- 6773 Mar, [facility] [address] [facility] [id number] [place] [address]- 7548 Mar, [facility] [address] [facility] [id number] [place] [address]- 4828 19 Feb, 2011 [facility] [address] [facility] [id number] [place] [address]- 2137 15 Feb, 2011 [facility] [address] [facility] [id number] [place] [address]- 8985 13 Feb, 2011 [facility] [place] [facility] [address] [facility] [id number], [place] [address]- 9201 13 Feb, 2011 [facility] [place] [facility] [address] [facility] [id number] [place] [address]- 6675 11 Jan, 2011 [facility] [place] [facility] [address] [facility] [id number] [place] [address]- 0446 17 Dec, 2010 [facility] [place] [facility] [address] [facility] [id number], [place] [address]- 5166 08 Feb, 2010 [facility] [place] [facility] [address] [facility] [id number], [place] [address]- 2116 Feb, [facility] [address] [facility] [id number] [address]873 Feb, [facility] [address] [facility] [id number], [place] [address]- 2408 Feb, [facility] [address] [facility] [id number], [place] [address]- 8104 Dec, [facility] [address] [facility] [id number][place] 9675 Dec, [facility] [address] [facility] [id number] 4483 Oct, [facility] [address] [facility] [id number], [place] [address]- 4004 Jun, [facility] [id number], [place] [address]- 1077 Feb, [facility] [address] [facility] [id number], [place] [address]- 7828 Feb, [facility] [address] [facility] [id number][place] 2544 Feb, [facility] [address] [id number], [place] [address]- 3486 Dec, IMMUNIZATIONS No Known Immunizations SOCIAL HISTORY Never Assessed REASON FOR VISIT [facility] [place] [place] PLAN OF CARE VITAL SIGNS MEDICATIONS Unknown Medications RESULTS No Results PROCEDURES No Known procedures INSTRUCTIONS MEDICATIONS ADMINISTERED No Known Medications MEDICAL (GENERAL) HISTORY Type Description Date Medical History obesity Medical History Hematologic disorder factor clotting problem Medical History DVT's Medical History Torn Rotator Cuff, repaired 09/23/17 Surgical History Lap Band 10/2012 Surgical History section 1985, 1987 Surgical History cholecystectomy Surgical History Sunnyside Filter 06/2009 Surgical History Left leg exploratory surgery r/t clot 1987 Surgical History left shoulder surgery 09/14/17 Surgical History lap band removed 12/2017 Hospitalization History Ruptured Ovarian Cyst with abd bleeding 11/2009 Hospitalization History Broken Back 06/2018
--- OUTSIDE RECORDS SUMMARY | 2018-08-02 08:39 | XMS REPORT ---
Author Author Migration, Doctor Organization [facility] Address Unknown Phone Unavailable Care Team Providers Care Motor Checker Name Role Phone Migration, Doctor Unavailable Unavailable PROBLEMS Type Condition ICD9-CM Code DNZ43-DX Code Onset Dates Condition Status SNOMED Code Problem Factor V Leiden D68.51 Active 903367389 Problem Thyroid follicular adenoma D34 Active 322978967 Problem Hypertriglyceridemia E78.1 Active 296985489 Problem History of DVT (deep vein thrombosis) Z86.718 Active 743128846 Problem Presence of IVC filter Z95.828 Active 461865587 Problem 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 Active 937295945 Problem Pelvic pain R10.2 Active 94714043 Problem Morbid obesity E66.01 Active 606629299 Problem Generalized anxiety disorder F41.1 Active 469447692 Problem Obstructive sleep apnea G47.33 Active 03959636 Problem correction (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 Active 155858375 Problem Peripheral edema R60.9 Active 313960840 Problem Excessive daytime sleepiness G47.19 Active 780297324455 Problem Gastroesophageal reflux disease, esophagitis presence not specified K21.9 Active 729664133 Problem Thyroid nodule E04.1 Active 205894583 ALLERGIES No Information ENCOUNTERS Encounter Location Date Diagnosis [place] [id number] [place] [address] 29701- 8370 Jun, Closed compression fracture of L3 lumbar vertebra with routine healing, subsequent encounter S32.030D and Drug-induced constipation K59.03 [facility] [address] [address] 75[address] Jun, [facility] [address] [place] [place] [id number] [place] [address] 17304- 4876 Jun, [facility] [address] [place] [address] 33907- 9035 Apr, [facility] [id number] [place] [address] 27891- 9717 18 Apr, 2018 Morbid obesity E66.01 [facility] [address] 60695- 5659 12 Apr, 2018 Morbid obesity E66.01 ; Hypertriglyceridemia E78.1 ; Gastroesophageal reflux disease, esophagitis presence not specified K21.9 and Joint pain M25.50 [facility] [address] 58732- 5829 Feb, [facility] [address] 04417- 5742 Feb, [facility] [address] 59[address]182 Jan, Acute bacterial conjunctivitis H10.30 [facility] [address] 44011- 0036 08 Dec, 2017 [place] [address] 31493- 6029 04 Dec, 2017 [facility] [address] 35428- 8416 17 Nov, 2017 [place] [address] 04941- 8121 07 Nov, 2017 Obstructive sleep apnea G47.33 ; Morbid obesity E66.01 and Gastroesophageal reflux disease, esophagitis presence not specified K21.9 [facility] [address] [place] [id number] [place] [address] [id number] 06 Nov, 2017 Encounter for examination of eyes and vision without abnormal findings Z01.00 [facility] [address] 89340- 2320 31 Oct, 2017 Thyroid nodule E04.1 and Screening for breast cancer Z12.31 [facility] [address] [id number] [place] [address] 52202- 5734 23 Oct, 2017 History of DVT (deep vein thrombosis) Z86.718 ; Thyroid nodule E04.1 and Gastroesophageal reflux disease, esophagitis presence not specified K21.9 [place] [address] [place] [id number] [place] [address] 53535- 0549 Oct, [place] [address] [place] [id number] [place] [address] 63818- 1056 Sep, [place] [address] [place] [id number] [place] [address] 54805- 7852 Aug, [place] [address] [place] [id number] [place] [address] 01425- 1347 Aug, [place] [address] [place] [id number] [place] [address] 41500- 9716 Aug, Acute pain of left shoulder M25.512 and Thyroid nodule E04.1 [place] [address] [place] [id number] [place] [address] 52957- 3016 July, Superior glenoid labrum lesion of left shoulder, subsequent encounter S43.432D [place] [address] [place] [id number] [place] [address] 15108- 5094 Jun, History of DVT (deep vein thrombosis) Z86.718 [place] [address] [place] [id number] [place] [address] 37376- 2016 Jun, History of DVT (deep vein thrombosis) Z86.718 [place] [address] [place] [id number] [place] [address] 68730- 2876 Jun, Impingement syndrome, shoulder, left M75.42 [place] [address] [place] [id number] [place] [address] 27241- 2191 May, Subacromial bursitis of left shoulder joint M75.52 [place] [address] [place] [id number] [place] [address] 91114- 1476 May, [place] [address] [place] [id number] [place] [address] 09244- 2971 May, Hypertriglyceridemia E78.1 ; 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 and Excessive daytime sleepiness G47.19 [place] [address] [place] [id number] [place] [address] 80191 2549 May, History of DVT (deep vein thrombosis) Z86.718 ; Generalized anxiety disorder F41.1 ; Hypertriglyceridemia E78.1 ; 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 ; Subacromial bursitis of left shoulder joint M75.52 and Excessive daytime sleepiness G47.19 [place] [address] 65970 2546 May, [place] [address] [place] [id number] [place] [address] 73945 2542 May, correction (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 [place] [address] [place] [id number] [place] [address] 58500 2546 23 Apr, 2017 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 [place] [address] [place] [id number] [place] [address] 44003 2546 Apr, correction (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 [place] [address] [place] [id number] [place] [address] 26796 2546 20 Apr, 2017 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 [place] [address] [place] [id number] [place] [address] 51683 2546 Apr, [place] [address] [place] [id number] [place] [address] 92739 2546 16 Apr, 2017 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 [place] [address] [place] [id number] [place] [address] 60040 2546 13 Apr, 2017 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 [place] [address] [place] [id number] [place] [address] 13930 2546 12 Apr, 2017 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 [place] [address] [place] [id number] [place] [address] 50594- 5273 Apr, 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 [facility] [address] [place] [address] 30931- 4856 07 Apr, 2017 correction (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 [facility] [address] [place] [id number] [place] [address] 310951- 4076 Apr, correction (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 [facility] [address] [place] [id number] [place] [address] 62120- 9179 Mar, correction (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 [place] [address] 41580- 9596 Mar, [place] [address] 15047- 5593 Mar, 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 [facility] [address] [id number] Jan, Dental examination Z01.20 [facility] [address] [id number] Jan, [facility] [address] [place] [id number] [place] [address] 91331- 7207 Jan, 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 [place] [address] [place] [id number] [place] [address] 62598- 3489 17 Jan, 2017 History of DVT (deep vein thrombosis) Z86.718 [place] [address] [place] [id number] [place] [address] 93062- 2679 07 Jan, 2017 Generalized anxiety disorder F41.1 and Peripheral edema R60.9 [place] [address] [place] [id number] [place] [address] 71606- 9095 27 Nov, 2016 History of DVT (deep vein thrombosis) Z86.718 [place] [address] 18011- 5446 Nov, correction (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 [facility] [address] [place] [address] 37802 -4105 Nov, Acute non-recurrent maxillary sinusitis J01.00 [facility] [address] [place] [address] 31456- 4844 Oct, correction (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 [facility] [address] [place] [id number] [place] [address] 51433- 1549 Oct, Personal history of venous thrombosis and embolism Z86.718 [place] [address] [place] [id number] [place] [address] 91013- 8806 Sep, [facility] [address] [place] [id number] [place] [address] 12541- 8556 Sep, Personal history of venous thrombosis and embolism Z86.718 [facility] [address] [place] [id number] [place] [address] 81477- 5809 Sep, 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 [place] [address] [place] [id number] [place] [address] 67747- 6639 Sep, 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 [facility] [address] [place] [id number] [place] [address] 54967- 0290 Sep, Generalized anxiety disorder F41.1 and History of DVT (deep vein thrombosis) Z86.718 [facility] [address] [place] [id number] [place] [address] 02229- 7448 Aug, History of DVT (deep vein thrombosis) Z86.718 ; Generalized anxiety disorder F41.1 ; correction (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 ; Pelvic pain R10.2 ; Hypertriglyceridemia E78.1 ; Excessive daytime sleepiness G47.19 ; Colon cancer screening Z12.11 ; Screening for breast cancer Z12.39 ; Peripheral edema R60.9 and Gastroesophageal reflux disease, esophagitis presence not specified K21.9 [place] [address] [place] [address] 25797- 8864 Aug, [place] [address] [place] [id number] [place] [address] 24758- 1816 July, [place] [address] [place] [id number] [place] [address] 66349- 1956 July, History of DVT (deep vein thrombosis) Z86.718 [place] [address] [place] [id number] [place] [address] 48567- 0180 Jun, Generalized anxiety disorder F41.1 [place] [address] [place] [id number] [place] [address] 24433- 4297 Jun, History of DVT (deep vein thrombosis) Z86.718 [place] [address] [place] [id number] [place] [address] 70084- 2153 Jun, History of DVT (deep vein thrombosis) Z86.718 [place] [address] [place] [id number] [place] [address] 97956- 8399 Jun, History of DVT (deep vein thrombosis) Z86.718 [place] [address] [place] [id number] [place] [address] 27338- 4990 Jun, History of DVT (deep vein thrombosis) Z86.718 [place] [address] [place] [address] 61017- 9453 May, History of DVT (deep vein thrombosis) Z86.718 [place] [address] [place] [address] 35791- 3375 May, correction (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 [place] [address] [place] [id number] [place] [address] 66378- 3776 May, 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 [place] [address] [address]- 2016 May, History of DVT (deep vein thrombosis) Z86.718 [facility] [address] [place] [address] 01851 -9600 27 Apr, 2016 Bacterial conjunctivitis of left eye H10.9 and H/O motion sickness Z87.898 [facility] [address] [place] [address] 37611- 3656 24 Apr, 2016 History of DVT (deep vein thrombosis) Z86.718 [facility] [address] [place] [id number] [place] [address] 97647- 7586 23 Apr, 2016 History of DVT (deep vein thrombosis) Z86.718 [place] [address] 32708- 5146 15 Apr, 2016 History of DVT (deep vein thrombosis) Z86.718 [facility] [address] [place] [id number] [place] [address] 05099- 5516 14 Apr, 2016 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 [place] [address] [place] [id number] [place] [address] 56795 2546 Mar, [place] [address] [place] [id number] [place] [address] 01490 2542 Mar, 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 [place] [address] [place] [id number] [place] [address] 73012 2546 Mar, Hypertriglyceridemia E78.1 and correction (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 [place] [address] [place] [id number] [place] [address] 93150 2546 Feb, correction (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 [place] [address] [place] [id number] [place] [address] 94000 2546 Feb, correction (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 [place] [address] [place] [id number] [place] [address] 91085 2546 Feb, correction (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 [facility] [address] [address]- 8969 Dec, [facility] [address] [place] [id number] [place] [address] 55828- 9496 Nov, [facility] [address] [place] [id number] [place] [address] 17339- 3636 Nov, History of DVT (deep vein thrombosis) Z86.718 ; Tremulousness R25.1 ; Generalized anxiety disorder F41.1 ; Peripheral edema R60.9 and Hypertriglyceridemia E78.1 [place] [address] [place] [id number] [place] [address] 42452- 0976 Oct, History of DVT (deep vein thrombosis) Z86.718 [place] [address] [place] [id number] [place] [address] 25894- 2151 Oct, [place] [address] [place] [id number] [place] [address] 69346- 3548 Sep, History of DVT (deep vein thrombosis) Z86.718 [place] [address] [place] [id number] [place] [address] 14757- 0155 Sep, correction (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 [facility] [address] [id number] [place] [address] 36583- 3023 July, [place] [address] [place] [id number] [place] [address] 79383- 3307 July, correction (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 [facility] [address] [place] [address] 40542- 2283 July, 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 [facility] [address] [id number] [place] [address] 57516- 8344 Jun, 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 [facility] [address] [place] [address] 94570 -5513 Jun, Coccyx pain M53.3 ; Encounter for therapeutic drug level monitoring Z51.81 and 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 current 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.01 [place] [address] 96909- 7487 May, Abnormal mammogram R92.8 [facility] [address] 25859 -7516 May, [facility] [address] 71922 -3044 May, Acute vaginitis N76.0 and Encounter for other screening for malignant neoplasm of breast Z12.39 [place] [address] 44720- 5709 Apr, [place] [address] 28956- 9407 Apr, [place] [address] 03171- 7763 Apr, Peripheral edema R60.9 [place] [address] 56300- 5840 Apr, correction (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 [place] [address] 42132- 8988 Apr, Peripheral edema R60.9 and correction (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 [place] [address] 47932- 1666 Apr, correction (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 [place] [address] 99986- 1068 Apr, [place] [address] 61264- 2670 Apr, correction (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 [place] [address] [place] [address]- 3881 Apr, Peripheral edema R60.9 [place] [address] 49529- 6994 Mar, correction (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 [place] [address] [place] [id number] [place] [address] 48088- 3553 Mar, 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 and Hypertriglyceridemia E78.1 [place] [address] 60213- 6084 Mar, 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 [place] [address] 56316- 4045 Mar, correction (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 [place] [address] 63017- 4198 Mar, [place] [address] 66455- 9520 Mar, 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 ; Hypertriglyceridemia E78.1 ; Personal history of venous thrombosis and embolism Z86.718 and Lump R22.9 [place] [address] [place] [id number] [place] [address] 42963- 9845 Mar, Personal history of venous thrombosis and embolism Z86.718 [place] [address] [place] [id number] [place] [address] 78093- 0611 Mar, Personal history of venous thrombosis and embolism Z86.718 [place] [address] [place] [id number] [place] [address] 06318- 7778 Mar, [place] [address] [place] [id number] [place] [address] 60186- 2707 Dec, Personal history of venous thrombosis and embolism Z86.718 [place] [address] 30016- 7725 Dec, Personal history of venous thrombosis and embolism V12.51 [facility] [address] [facility] [id number] [address]- 5667 Nov, Personal history of venous thrombosis and embolism V12.51 [facility] [address] [facility] [id number] [address]- 1206 Nov, Personal history of venous thrombosis and embolism V12.51 [facility] [address] [facility] [id number] [address]- 2667 Nov, Personal history of venous thrombosis and embolism V12.51 [facility] [address] [facility] [id number] [address]- 8099 Nov, Personal history of venous thrombosis and embolism V12.51 [facility] [address] [place] [id number] [address]- 8213 Nov, [facility] [address] [place] [id number] [address]- 8564 Oct, Dysuria 788.1 [facility] [address] [place] [address] [id number] [address]- 9193 Oct, Personal history of venous thrombosis and embolism V12.51 [facility] [address] [place] [address] [id number] [address]- 0341 Oct, [facility] [address] [id number] [address]- 0924 Oct, Personal history of venous thrombosis and embolism V12.51 [facility] [address] [facility] [id number] [address]- 1303 Sep, Personal history of venous thrombosis and embolism V12.51 [facility] [address] [facility] [id number] [address]- 6522 Sep, Personal history of venous thrombosis and embolism V12.51 [facility] [address] [id number] [address]- 0763 Aug, Personal history of venous thrombosis and embolism V12.51 [facility] [address] [address]- 8127 18 Aug, 2014 Personal history of venous thrombosis and embolism V12.51 [facility] [address] [address]- 7566 15 Aug, 2014 Personal history of venous thrombosis and embolism V12.51 [facility] [address] [address]- 9616 July, Generalized anxiety disorder 300.02 ; Abdominal pain, left lower quadrant 789.04 and Personal history of venous thrombosis and embolism V12.51 [facility] [address] [address]- 1376 14 Jun, 2014 [facility] [address] [address]- 8346 Jun, [facility] [address] [address]- 1105 May, [facility] [address] [address]- 2995 May, [facility] [address] [address]- 4696 May, [facility] [address] [address]- 0086 May, [facility] [address] [address]- 0416 May, [facility] [id number] [address]- 2546 May, [facility] [address] [address]- 2546 May, [facility] [address] [address]- 2546 May, [facility] [address] [address]- 7441 Apr, [facility] [place] [facility] [address] [id number] [place] [address]- 2944 Apr, [facility] [place] [facility] [address] [id number] [place] [address]- 9835 Apr, [facility] [place] [facility] [address] [id number] [place] [address]- 0350 Apr, [facility] [place] [facility] [address] [id number] [place] [address]- 8804 Apr, [facility] [place] [facility] [address] [id number] [place] [address]- 5728 Mar, [facility] [place] [facility] [address] [id number] [place] [address]- 2083 Mar, [facility] [place] [facility] [address] [id number] [place] [address]- 3100 Mar, [facility] [place] [facility] [address] [id number] [place] [address]- 0436 Mar, [facility] [place] [facility] [address] [id number] [place] [address]- 8699 Mar, [facility] [place] [facility] [address] [id number] [place] [address]- 8744 Mar, [facility] [place] [facility] [address] [id number] [place] [address]- 2037 Feb, [facility] [place] [facility] [address] [id number] [place] [address] Feb, [facility] [place] [facility] [address] [id number] [place] [address] Feb, [facility] [place] [facility] [address] [id number] [place] [address] Feb, [facility] [place] [facility] [address] [id number] [place] [address] Feb, [facility] [place] [facility] [address] [id number] [place] [address] Feb, [facility] [place] [facility] [address] [id number] [place] [address] Feb, [facility] [place] [facility] [address] [id number] [place] Feb, [facility] [place] [facility] [address] [id number] [place] [address] [address] Feb, [facility] [place] [facility] [address] [id number] [place] [address] Feb, [facility] [place] [facility] [address] [id number] [place] [address] Jan, [facility] [place] [facility] [address] [id number] [place] [address] Jan, [facility] [place] [facility] [address] [id number] [place] [address] Jan, [facility] [place] [facility] [address] [id number] [place] [address] Jan, [facility] [place] [facility] [address] [id number] [place] [address] Jan, [facility] [place] [facility] [address] [id number] [place] [address] Jan, [facility] [place] [facility] [address] [id number] [place] [address] Jan, [facility] [place] [facility] [address] [id number] [place] [address] Jan, [facility] [place] [facility] [address] [id number] [place] [address] Jan, [facility] [place] [facility] [address] [id number] [place] [address] 69[address] Jan, [facility] [place] [facility] [address] [id number] [place] [address]700 Dec, [facility] [place] [facility] [address] [id number] [place] [address] 1476 Dec, [facility] [place] [facility] [address] [id number] [place] [address] 0813 Dec, [facility] [place] [facility] [address] [id number] [place] [address]- 3514 Dec, [facility] [place] [facility] [address] [id number] [place] [address]- 9403 Dec, [facility] [place] [facility] [address] [id number] [place] [address] 9063 Dec, [facility] [place] [facility] [address] [id number] [place] [address]- 2631 Dec, [facility] [place] [facility] [address] [id number] [place] [address]- 9037 Dec, [facility] [place] [facility] [address] [id number] [place] [address]- 7255 Dec, [facility] [place] [facility] [address] [id number] [place] [address]- 8503 Dec, [facility] [place] [facility] [address] [id number] [place] [address]- 8871 Dec, [facility] [place] [facility] [address] [id number] [place] [address]- 2048 Dec, [facility] [place] [facility] [address] [id number] [place] [address] Dec, [facility] [place] [facility] [address] [id number] [place] [address] 0709 Dec, [facility] [place] [facility] [address] [id number] [place] [address]- 1310 Dec, [facility] [place] [facility] [address] [id number] [place] [address] Nov, [facility] [place] [facility] [address] [id number] [place] [address] 30 Sep, 2013 [facility] [place] [facility] [address] [id number] [place] [address] 2546 26 Sep, 2013 [facility] [place] [facility] [address] [id number] [place] [address] 2546 26 Sep, 2013 [facility] [place] [facility] [address] [id number] [place] [address] 2546 24 Sep, 2013 [facility] [place] [facility] [address] [id number] [place] [address] 2548 24 Sep, 2013 [facility] [place] [facility] [address] [id number] [place] [address]- 4232 23 Sep, 2013 [facility] [place] [facility] [address] [id number] [place] [address]- 2810 23 Nov, 2013 [facility] [place] [facility] [address] [id number] [place] [address]- 0945 18 Nov, 2013 [facility] [place] [facility] [address] [id number] [place] [address]- 8367 18 Nov, 2013 [facility] [place] [facility] [address] [id number] [place] [address]- 1375 17 Nov, 2013 [facility] [place] [facility] [address] [id number] [place] [address]- 2540 17 Sep, 2013 [facility] [place] [facility] [address] [id number] [place] [address] 2542 11 Nov, 2013 [facility] [place] [facility] [address] [id number] [place] [address]- 2549 11 Nov, 2013 [facility] [place] [facility] [address] [id number] [place] [address] 2540 10 Nov, 2013 [facility] [place] [facility] [address] [id number] [place] [address]- 2547 10 Nov, 2013 [facility] [place] [facility] [address] [id number] [place] [address]- 2543 08 Sep, 2013 [facility] [place] [facility] [address] [id number] [place] [address]- 3454 08 Nov, 2013 [facility] [place] [facility] [address] [id number] [place] [address]- 1528 Sep, [facility] [place] [facility] [address] [id number] [place] [address]- 8436 Sep, [facility] [place] [facility] [address] [id number] [place] [address]- 5571 Sep, [facility] [place] [facility] [address] [id number] [place] [address]- 8916 Sep, [facility] [place] [facility] [address] [id number] [place] [address]- 1876 Sep, [facility] [place] [facility] [address] [id number] [place] [address]- 2330 Sep, [facility] [place] [facility] [address] [id number] [place] [address]- 5404 Aug, [facility] [place] [facility] [address] [id number] [place] [address]- 7541 Aug, [facility] [place] [facility] [address] [id number] [place] [address]- 9200 Aug, [facility] [place] [facility] [address] [id number] [place] [address]- 9095 Aug, [facility] [place] [facility] [address] [id number] [place] [address]- 8616 Aug, [facility] [place] [facility] [address] [id number] [place] [address]- 6806 Aug, [facility] [place] [facility] [address] [id number] [place] [address]- 3981 Aug, [facility] [place] [facility] [address] [id number] [place] [address]- 2871 Aug, [facility] [place] [facility] [address] [id number] [place] [address]- 6574 Aug, [facility] [place] [facility] [address] [id number] [place] [address]- 0837 Aug, [facility] [place] [facility] [address] [id number] [place] [address]- 8509 Aug, [facility] [place] [facility] [address] [id number] [place] [address]- 7937 July, [facility] [place] [facility] [address] [id number] [place] [address]- 2784 July, [facility] [place] [facility] [address] [id number] [place] [address]- 5681 Jun, [facility] [place] [facility] [address] [id number] [place] [address]- 2237 Jun, [facility] [place] [facility] [address] [id number] [place] [address]- 8547 Jun, [facility] [place] [facility] [address] [id number] [place] [address]- 1470 Jun, [facility] [place] [facility] [address] [id number] [place] [address]- 3798 Jun, [facility] [place] [facility] [address] [id number] [place] [address]- 0079 Jun, [facility] [place] [facility] [address] [id number] [place] [address]- 5769 Jun, [facility] [place] [facility] [address] [id number] [place] [address]- 0110 15 Jun, 2013 [facility] [place] [facility] [address] [id number] [place] [address]- 6306 Jun, [facility] [place] [facility] [address] [id number] [place] [address]- 9202 Jun, [facility] [place] [facility] [address] [id number] [place] [address]- 7307 Jun, [facility] [place] [facility] [address] [id number] [place] [address]- 6492 10 Jun, 2013 [facility] [place] [facility] [address] [id number] [place] [address]- 7800 May, [facility] [place] [facility] [address] [id number] [place] [address]- 3446 May, [facility] [place] [facility] [address] [id number] [place] [address]- 9911 May, [facility] [place] [facility] [address] [id number] [place] [address]- 1945 May, [facility] [place] [facility] [address] [id number] [place] [address]- 5326 May, [facility] [place] [facility] [address] [id number] [place] [address]- 2945 May, [facility] [place] [facility] [address] [id number] [place] [address]- 9179 May, [facility] [place] [facility] [address] [id number] [place] [address]- 0249 May, [facility] [place] [facility] [address] [id number] [place] [address]- 3400 May, [facility] [place] [facility] [address] [facility] [id number] [place] [address]- 8643 May, [facility] [place] [facility] [address] [id number] [place] [address]- 8288 May, [facility] [place] [facility] [address] [id number] [place] [address]- 0169 May, [facility] [place] [facility] [address] [id number] [place] [address]- 3100 Apr, [facility] [place] [facility] [address] [id number] [place] [address]- 3949 Apr, [facility] [place] [facility] [address] [id number] [place] [address]- 8651 Apr, [facility] [place] [facility] [address] [id number] [place] [address]- 9517 Apr, [facility] [place] [facility] [address] [id number] [place] [address]- 6416 Apr, [facility] [place] [facility] [address] [id number] [place] [address] 2546 Apr, [facility] [place] [facility] [address] [id number] [place] [address] 2548 Apr, [facility] [place] [facility] [address] [id number] [place] [address]- 2610 Apr, [facility] [place] [facility] [address] [id number] [place] [address]- 0654 Apr, [facility] [place] [facility] [address] [facility] [id number] [place] [address]- 3049 Apr, [facility] [place] [facility] [address] [id number] [place] [address]- 5971 Apr, [facility] [place] [facility] [address] [id number] [place] [address]- 5270 Apr, [facility] [place] [facility] [address] [facility] [id number] [place] [address]- 7582 Apr, [facility] [place] [facility] [address] [facility] [id number] [place] [address]- 2032 Apr, [facility] [place] [facility] [address] [id number] [place] [address]- 7694 Apr, [facility] [place] [facility] [address] [id number] [place] [address]- 2540 Apr, [facility] [place] [facility] [address] [id number] [place] [address]- 5548 Apr, [facility] [place] [facility] [address] [facility] [id number] [place] [address]- 1749 Jan, [facility] [place] [facility] [address] [id number] [place] [address]- 3584 13 Jan, 2013 [facility] [place] [facility] [address] [id number] [place] [address]- 2712 08 Jan, 2013 [facility] [place] [facility] [address] [id number] [place] [address]- 2546 Jan, [facility] [place] [facility] [address] [id number] [place] [address]- 0300 07 Jan, 2013 [facility] [place] [facility] [address] [id number] [place] [address]- 6701 07 Jan, 2013 [facility] [place] [facility] [address] [id number] [place] [address]- 4590 Jan, [facility] [place] [facility] [address] [id number] [place] [address]- 1662 Dec, [facility] [place] [facility] [address] [id number] [place] [address]- 5060 Dec, [facility] [place] [facility] [address] [id number] [place] [address]- 5487 Dec, [facility] [place] [facility] [address] [id number] [place] [address]- 0475 Nov, [facility] [place] [facility] [address] [id number] [place] [address]- 6646 Nov, [facility] [place] [facility] [address] [id number] [place] [address]- 0789 05 Nov, 2012 [facility] [place] [facility] [address] [id number] [place] [address]- 9037 Nov, [facility] [place] [facility] [address] [id number] [place] [address]- 4848 Oct, [facility] [place] [facility] [address] [id number] [place] [address]- 2546 Oct, [facility] [place] [facility] [address] [id number] [place] [address]- 3104 Oct, [facility] [place] [facility] [address] [id number] [place] [address]- 6159 Oct, [facility] [place] [facility] [address] [id number] [place] [address]- 3004 Oct, [facility] [place] [facility] [address] [id number] [place] [address]- 3697 Sep, [facility] [place] [facility] [address] [id number] [place] [address]- 3111 Sep, [facility] [place] [facility] [address] [id number] [place] [address]- 4964 Sep, [facility] [place] [facility] [address] [id number] [place] [address]- 2831 Sep, [facility] [place] [facility] [address] [id number] [place] [address]- 6688 Sep, [facility] [place] [facility] [address] [id number] [place] [address]- 1182 Sep, [facility] [place] [facility] [address] [id number] [place] [address]- 9091 Sep, [facility] [place] [facility] [address] [id number] [place] [address]- 2196 Aug, [facility] [place] [facility] [address] [id number] [place] [address]- 8734 Aug, [facility] [place] [facility] [address] [id number] [place] [address]- 0389 July, [facility] [place] [facility] [address] [id number] [place] [address]- 5839 Jun, [facility] [place] [facility] [address] [id number] [place] [address]- 4479 Jun, [facility] [place] [facility] [address] [id number] [place] [address]- 9339 Jun, [facility] [place] [facility] [address] [id number] [place] [address]- 9247 Apr, [facility] [address] [id number] [place] [address]- 2870 Apr, [facility] [address] [id number] [place] [address]- 2416 Apr, [facility] [address] [id number] [place] [address]- 2268 Mar, [facility] [address] [id number] [place] [address]- 0766 24 Mar, 2012 [facility] [address] [id number] [place] [address]- 7899 2012 [facility] [address] [id number] [place] [address]- 6586 Mar, [facility] [address] [id number] [place] [address]- 9333 Mar, [facility] [address] [id number] [place] [address]- 7496 14 Feb, 2012 [facility] [address] [id number] [place] [address]- 5229 14 Feb, 2012 [facility] [address] [id number] [place] [address]- 0149 13 Jan, 2012 [facility] [address] [id number] [place] [address]- 6685 13 Jan, 2012 [facility] [address] [id number] [place] [address]- 8965 13 Jan, 2012 [facility] [address] [id number] [place] [address]- 6409 13 Jan, 2012 [facility] [address] [id number] [place] [address]- 1440 07 Jan, 2012 [facility] [address] [id number] [place] [address]- 1407 Jan, [facility] [place] [facility] [address] [id number] [place] [address]- 8515 Jan, [facility] [place] [facility] [address] [id number] [place] [address]- 3343 Dec, [facility] [place] [facility] [address] [id number] [place] [address]- 6742 Dec, [facility] [place] [facility] [address] [id number] [place] [address]- 4081 Dec, [facility] [place] [facility] [address] [id number] [place] [address]- 1286 Dec, [facility] [place] [facility] [address] [id number] [place] [address]- 7985 Dec, [facility] [place] [facility] [address] [id number] [place] [address]- 8041 Dec, [facility] [place] [facility] [address] [id number] [place] [address]- 9635 Dec, [facility] [place] [facility] [address] [id number] [place] [address]- 8367 Dec, [facility] [place] [facility] [address] [id number] [place] [address]- 7751 Dec, [facility] [place] [facility] [address] [id number] [place] [address]- 4093 Dec, [facility] [place] [facility] [address] [id number] [place] [address]- 2635 Oct, [facility] [place] [facility] [address] [id number] [place] [address]- 0649 Oct, [facility] [place] [facility] [address] [id number] [place] [address]- 0827 Aug, [facility] [place] [facility] [address] [id number] [place] [address]- 0262 Aug, [facility] [place] [facility] [address] [id number] [place] [address]- 1423 July, [facility] [address] [id number] [place] [address]- 3756 Jun, [facility] [address] [id number] [place] [address]- 6236 Jun, [facility] [address] [facility] [id number] [place] [address]- 1526 May, [facility] [address] [id number] [place] [address]- 8529 Apr, [facility] [address] [id number] [place] [address]- 8426 Apr, [facility] [address] [id number] [place] [address]- 4196 Mar, [facility] [address] [facility] [id number] [place] [address]- 2563 Mar, [facility] [address] [id number] [place] [address]- 3192 Feb, [facility] [address] [facility] [id number] [place] [address]- 2208 15 Feb, 2011 [facility] [address] [facility] [id number] [place] [address]- 6413 13 Feb, 2011 [facility] [address] [facility] [id number] [place] [address]- 5042 13 Feb, 2011 [facility] [place] [facility] [address] [id number] [place] [address]- 7027 Jan, [facility] [place] [facility] [address] [id number] [place] [address]- 8904 17 Dec, 2010 [facility] [place] [facility] [address] [id number] [place] [address] 2546 08 Feb, 2010 [facility] [place] [facility] [address] [facility] [id number] [place] [address]- 4546 02 Feb, 2010 [facility] [place] [facility] [address] [facility] [id number] [place] [address]- 6986 Feb, [facility] [address] [facility] [id number] [place] 5384 Feb, [facility] [address] [facility] [id number] [place] 8050 Dec, [facility] [address] [facility] [id number] [place] 5512 Dec, [facility] [address] [facility] [id number] [place] 7789 Oct, [facility] [address] [facility] [id number] [place] [address]- 2421 Jun, [facility] [id number] [place] [address] Feb, [facility] [id number] [place] [address]231 Feb, [facility] [address] [id number] [place] [address]- 4611 Feb, [facility] [address] [id number] [place] [address]- 7628 Dec, IMMUNIZATIONS No Known Immunizations SOCIAL HISTORY Never Assessed REASON FOR VISIT [facility] [place]AN OF CARE VITAL SIGNS MEDICATIONS No Known Medications RESULTS No Results PROCEDURES No Known procedures INSTRUCTIONS MEDICATIONS ADMINISTERED No Known Medications MEDICAL (GENERAL) HISTORY Type Description Date Medical History obesity Medical History Hematologic disorder factor clotting problem Medical History DVT's Medical History Torn Rotator Cuff, repaired 09/23/17 Surgical History Lap Band 10/2012 Surgical History section 1985, 1987 Surgical History cholecystectomy Surgical History Pray Filter 06/2009 Surgical History Left leg exploratory surgery r/t clot 1987 Surgical History left shoulder surgery 09/14/17 Surgical History lap band removed 12/2017 Hospitalization History Ruptured Ovarian Cyst with abd bleeding 11/2009 Hospitalization History Broken Back 06/2018
--- OUTSIDE RECORDS SUMMARY | 2018-08-02 08:40 | XMS REPORT ---
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 Name Role Phone Migration, Doctor Unavailable Unavailable PROBLEMS Type Condition ICD9-CM Code QTK49-CX Code Onset Dates Condition Status SNOMED Code Problem Factor V Leiden D68.51 Active 702033650 Problem Thyroid follicular adenoma D34 Active 299948628 Problem Hypertriglyceridemia E78.1 Active 197064601 Problem History of DVT (deep vein thrombosis) Z86.718 Active 459785221 Problem Presence of IVC filter Z95.828 Active 646391422 Problem 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 Active 424214601 Problem Pelvic pain R10.2 Active 78323910 Problem Morbid obesity E66.01 Active 217900744 Problem Generalized anxiety disorder F41.1 Active 885881454 Problem Obstructive sleep apnea G47.33 Active 19723810 Problem FDC (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 Active 111509942 Problem Peripheral edema R60.9 Active 920221371 Problem Excessive daytime sleepiness G47.19 Active 946720837160 Problem Gastroesophageal reflux disease, esophagitis presence not specified K21.9 Active 629448756 Problem Thyroid nodule E04.1 Active 870169554 ALLERGIES No Information ENCOUNTERS Encounter Location Date Diagnosis [facility] [id number] [place] [address] 93674- 9689 Apr, [facility] [id number] [place] [address] 77425- 8793 18 Apr, 2018 Morbid obesity E66.01 [facility] [id number] [place] [address] 79380- 0747 Apr, Morbid obesity E66.01 ; Hypertriglyceridemia E78.1 ; Gastroesophageal reflux disease, esophagitis presence not specified K21.9 and Joint pain M25.50 [facility] [id number] [place] [address] 53031- 9306 Feb, [facility] [address] [address] 9195 Feb, [facility] [id number] [place] [address] 69219 -3842 Jan, Acute bacterial conjunctivitis H10.30 [facility] [id number] [place] [address] 63408- 5606 Dec, [facility] [id number] [place] [address] 914113- 6325 Dec, [facility] [id number] [place] [address] 36164- 6539 17 Nov, 2017 [facility] [id number] [place] [address] 869587- 0866 07 Nov, 2017 Obstructive sleep apnea G47.33 ; Morbid obesity E66.01 and Gastroesophageal reflux disease, esophagitis presence not specified K21.9 [facility] [id number] [place] [address] [id number] 06 Nov, 2017 Encounter for examination of eyes and vision without abnormal findings Z01.00 [facility] [id number] [place] [address] 15159- 3199 31 Oct, 2017 Thyroid nodule E04.1 and Screening for breast cancer Z12.31 [facility] [id number] [place] [address] 37143- 2939 23 Oct, 2017 History of DVT (deep vein thrombosis) Z86.718 ; Thyroid nodule E04.1 and Gastroesophageal reflux disease, esophagitis presence not specified K21.9 [facility] [address] [place] [address] 31762- 1027 Oct, [facility] [id number] [place] [address] 75721- 2266 Sep, [facility] [address] [place] [address] 27869- 9365 Aug, [facility] [id number] [place] [address] 43645- 3538 Aug, [place] [facility] [id number] [place] [address] 16506- 0019 Aug, Acute pain of left shoulder M25.512 and Thyroid nodule E04.1 [facility] [id number] [place] [address] 08099- 4825 July, Superior glenoid labrum lesion of left shoulder, subsequent encounter S43.432D [place] [facility] [address] 26496- 5576 Jun, History of DVT (deep vein thrombosis) Z86.718 [facility] [facility] [address] 97436- 5797 Jun, History of DVT (deep vein thrombosis) Z86.718 [facility] [id number] [place] [address] 67684- 8554 Jun, Impingement syndrome, shoulder, left M75.42 [facility] [id number] [place] [address] 25727- 1524 May, Subacromial bursitis of left shoulder joint M75.52 [facility] [id number] [place] [address] 52662- 0146 May, [facility] [id number] [place] [address] 91185- 4602 May, Hypertriglyceridemia E78.1 ; FDC (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 and Excessive daytime sleepiness G47.19 [facility] [id number] [place] [address] 46633- 4073 May, History of DVT (deep vein thrombosis) Z86.718 ; Generalized anxiety disorder F41.1 ; Hypertriglyceridemia E78.1 ; FDC (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 ; Subacromial bursitis of left shoulder joint M75.52 and Excessive daytime sleepiness G47.19 [facility] [id number] [place] [address] 06779- 2540 May, [facility] [address] [address] 2546 May, FDC (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 [facility] [address] [place] [address] 42343 2546 Apr, FDC (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 [facility] [id number] [place] [address] 32399 2546 Apr, direct support staff member (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 [facility] [id number] [place] [address] 19120 2546 Apr, FDC (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 [facility] [id number] [place] [address] 97806 2546 Apr, [facility] [id number] [place] [address] 26438 2546 Apr, FDC (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 [facility] [address] [place] [address] 79284 2546 13 Apr, 2017 direct support staff member (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 [facility] [address] [place] [address] 75788 2546 Apr, direct support staff member (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 [facility] [id number] [place] [address] 18994 2546 Apr, FDC (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 [facility] [address] [place] [address] 94299 2546 07 Apr, 2017 FDC (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 [facility] [address] [place] [address] 96737 2546 06 Apr, 2017 FDC (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 [facility] [id number] [place] [address] 93949- 3393 Mar, direct support staff member (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 [facility] [id number] [place] [address] 14180- 0638 Mar, [facility] [id number] [place] [address] 35365- 2196 Mar, direct support staff member (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 [facility] [id number] [place] [address] [id number] Jan, Dental examination Z01.20 [facility] [address] [id number] Jan, [facility] [address] 89783- 5010 Jan, direct support staff member (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 [facility] [address] 86802- 8601 Jan, History of DVT (deep vein thrombosis) Z86.718 [place] [facility] [id number] [place] [address] 03803- 8064 Jan, Generalized anxiety disorder F41.1 and Peripheral edema R60.9 [facility] [id number] [place] [address] 85396- 0132 Nov, History of DVT (deep vein thrombosis) Z86.718 [facility] [id number] [place] [address] 04021- 7088 Nov, direct support staff member (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 [facility] [id number] [place] [address] 80819 -8319 Nov, Acute non-recurrent maxillary sinusitis J01.00 [facility] [id number] [place] [address] 60118- 0064 Oct, direct support staff member (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 [facility] [address] [place] [address]- 4699 Oct, Personal history of venous thrombosis and embolism Z86.718 [place] [facility] [id number] [place] [address] 05302- 0049 Sep, [facility] [facility] [id number] [place] [address] 39735- 8053 Sep, Personal history of venous thrombosis and embolism Z86.718 [place] [id number] [place] [address] 10404- 5131 Sep, FDC (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 [place] [id number] [place] [address] 92675- 9804 Sep, FDC (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 [place] [facility] [id number] [place] [address] 36171- 4872 Sep, Generalized anxiety disorder F41.1 and History of DVT (deep vein thrombosis) Z86.718 [place] [address] [place] [address] 47223- 1688 Aug, History of DVT (deep vein thrombosis) Z86.718 ; Generalized anxiety disorder F41.1 ; direct support staff member (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 ; Pelvic pain R10.2 ; Hypertriglyceridemia E78.1 ; Excessive daytime sleepiness G47.19 ; Colon cancer screening Z12.11 ; Screening for breast cancer Z12.39 ; Peripheral edema R60.9 and Gastroesophageal reflux disease, esophagitis presence not specified K21.9 [facility] [address] [address]- 8203 Aug, [facility] [id number] [place] [address] 18540- 5597 July, [facility] [id number] [place] [address] 06247- 8575 July, History of DVT (deep vein thrombosis) Z86.718 [place] [id number] [place] [address] 88525- 5049 Jun, Generalized anxiety disorder F41.1 [place] [facility] [address] 33069- 7655 Jun, History of DVT (deep vein thrombosis) Z86.718 [facility] [id number] [place] [address] 14879- 8840 Jun, History of DVT (deep vein thrombosis) Z86.718 [place] [address] 27695- 0570 Jun, History of DVT (deep vein thrombosis) Z86.718 [place] [address] 71116- 4687 Jun, History of DVT (deep vein thrombosis) Z86.718 [place] [address] 87054- 3082 May, History of DVT (deep vein thrombosis) Z86.718 [place] [facility] [id number] [place] [address] 18696- 9819 May, direct support staff member (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 [place] [id number] [place] [address] 68836- 1483 May, FDC (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 [facility] [id number] [place] [address] 31119- 6377 May, History of DVT (deep vein thrombosis) Z86.718 [facility] [id number] [place] [address] 63229 -0703 Apr, Bacterial conjunctivitis of left eye H10.9 and H/O motion sickness Z87.898 [facility] [address] [place] [address] 04795- 4529 Apr, History of DVT (deep vein thrombosis) Z86.718 [facility] [address] 06733762- 2546 23 Apr, 2016 History of DVT (deep vein thrombosis) Z86.718 [facility] [id number] [place] [address] 05712 2546 15 Apr, 2016 History of DVT (deep vein thrombosis) Z86.718 [facility] [address] [place] [address] 02056 2546 14 Apr, 2016 FDC (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 [place] [id number] [place] [address] 65747 2546 Mar, [place] [facility] [id number] [place] [address] 39664 2546 Mar, FDC (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 [place] [address] [place] [address] 40473 2546 Mar, Hypertriglyceridemia E78.1 and FDC (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 [place] [address] [place] [address] 39028 2546 Feb, direct support staff member (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 [facility] [facility] [id number] [place] [address] 98798 2546 Feb, FDC (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 [facility] [address] [place] [address] 90891 2546 Feb, FDC (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 [facility] [address] [place] [address] 42877 2546 Dec, [facility] [id number] [place] [address] 34602 2546 Nov, [facility] [address] [address] 2546 13 Nov, 2015 History of DVT (deep vein thrombosis) Z86.718 ; Tremulousness R25.1 ; Generalized anxiety disorder F41.1 ; Peripheral edema R60.9 and Hypertriglyceridemia E78.1 [place] [facility] [address] [place] [address] 26095- 1812 Oct, History of DVT (deep vein thrombosis) Z86.718 [place] [address] [place] [address] 78535- 4129 Oct, [place] [facility] [address] 27213- 2521 Sep, History of DVT (deep vein thrombosis) Z86.718 [place] [facility] [id number] [place] [address] 15191- 7748 Sep, direct support staff member (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 [place] [address] 51795- 0644 July, [place] [facility] [address] 08569- 2804 July, FDC (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 [place] [id number] [place] [address] 20486- 1553 July, FDC (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 [place] [address] [place] [address] 44993- 9213 Jun, direct support staff member (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 [facility] [id number] [place] [address] 43680 -6324 Jun, Coccyx pain M53.3 ; Encounter for therapeutic drug level monitoring Z51.81 and direct support staff member current 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.01 [place] [address] [place] [address] 48344- 9386 May, Abnormal mammogram R92.8 [facility] [id number] [place] [address] 48742 -2247 May, [facility] [address] 91019 -1277 May, Acute vaginitis N76.0 and Encounter for other screening for malignant neoplasm of breast Z12.39 [place] [address] 30019- 0376 Apr, [place] [address] 82084- 2016 Apr, [place] [address] 27045- 3898 Apr, Peripheral edema R60.9 [place] [address] 90182- 3687 Apr, direct support staff member (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 [place] [address] 01160- 4144 Apr, Peripheral edema R60.9 and FDC (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 [place] [address] 92947 254 Apr, FDC (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 [place] [address] 85941 2546 Apr, [place] [address] 90177- 2546 Apr, direct support staff member (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 [place] [id number] [place] [address] 75683 2546 Apr, Peripheral edema R60.9 [place] [address] 19098 2546 Mar, FDC (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 [place] [address] [place] [address] 61065 2546 Mar, FDC (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 and Hypertriglyceridemia E78.1 [place] [address] [address]- 8057 Mar, direct support staff member (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 [place] [address] [place] [address] 22311- 1891 Mar, FDC (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 [place] [address] [place] [address] 32296- 3807 Mar, [place] [address] [place] [address] 97671- 9193 Mar, direct support staff member (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 ; Hypertriglyceridemia E78.1 ; Personal history of venous thrombosis and embolism Z86.718 and Lump R22.9 [place] [address] [place] [address] 99321- 1705 Mar, Personal history of venous thrombosis and embolism Z86.718 [place] [facility] [address] [place] [address] 25516- 4531 Mar, Personal history of venous thrombosis and embolism Z86.718 [place] [address] [place] [address] 99976- 0295 Mar, [place] [address] [place] [address] 85930- 5725 Dec, Personal history of venous thrombosis and embolism Z86.718 [place] [address] [place] [address] 88681- 9069 Dec, Personal history of venous thrombosis and embolism V12.51 [facility] [address] [address]- 9591 Nov, Personal history of venous thrombosis and embolism V12.51 [facility] [address] [address]- 4367 Nov, Personal history of venous thrombosis and embolism V12.51 [place] [address] [place] [address] 71254- 9225 Nov, Personal history of venous thrombosis and embolism V12.51 [facility] [address]- 9292 Nov, Personal history of venous thrombosis and embolism V12.51 [facility] [address] [address]- 6008 Nov, [facility] [id number] [place] [address] 98123- 1057 Oct, Dysuria 788.1 [facility] [address] [place] [address] 42908- 3160 Oct, Personal history of venous thrombosis and embolism V12.51 [facility] [address] [place] [address] 96208- 6532 Oct, [facility] [id number] [place] [address] 32515- 7283 Oct, Personal history of venous thrombosis and embolism V12.51 [facility] [address] [place] [address] 29104- 9617 Sep, Personal history of venous thrombosis and embolism V12.51 [facility] [address] [address]- 6738 Sep, Personal history of venous thrombosis and embolism V12.51 [facility] [address] [address]- 6160 Aug, Personal history of venous thrombosis and embolism V12.51 [facility] [id number] [address]- 4638 Aug, Personal history of venous thrombosis and embolism V12.51 [facility] [address] [address]- 7666 Aug, Personal history of venous thrombosis and embolism V12.51 [facility] [id number] [address]- 2489 July, Generalized anxiety disorder 300.02 ; Abdominal pain, left lower quadrant 789.04 and Personal history of venous thrombosis and embolism V12.51 [facility] [address]- 8638 14 Jun, 2014 [facility] [address] 6295 Jun, [facility] [id number] [place] [address] 434502- 2972 May, [facility] [address] [facility] [id number] [address]- 9243 May, [facility] [id number] [place] [address] 42566- 3563 May, [facility] [address]- 2639 May, [facility] [id number] [place] [address] 18203- 8455 May, [facility] [address] [address]- 5178 May, [facility] [address] [address]- 8474 May, [facility] [address] [address]- 7020 May, [facility] [address] [address]- 1493 Apr, [facility] [address] 2846 Apr, [facility] [address] 3137 Apr, [facility] [address]- 1866 Apr, [facility] [address] [address]- 9854 Apr, [facility] [address] [id number] [place] [address]- 6569 Mar, [facility] [place] [facility] [address] [id number] [place] [address] Mar, [facility] [place] [facility] [address] [id number] [place] [address] Mar, [facility] [place] [facility] [address] [id number] [place] [address] Mar, [facility] [place] [facility] [address] [id number] [place] [address] Mar, [facility] [place] [facility] [address] [id number] [place] [address] Mar, [facility] [place] [facility] [address] [facility] [id number] [place] [address] Feb, [facility] [place] [facility] [address] [id number] [place] [address] Feb, [facility] [place] [facility] [address] [id number] [place] [address] Feb, [facility] [place] [facility] [address] [facility] [id number] [place] [address] Feb, [facility] [place] [facility] [address] [id number] [place] [address] Feb, [facility] [place] [facility] [address] [id number] [place] [address] Feb, [facility] [place] [facility] [address] [id number] [place] [address] Feb, [facility] [place] [facility] [address] [id number] [place] [address] Feb, [facility] [place] [facility] [address] [facility] [id number] [place] [address] Feb, [facility] [place] [facility] [address] [id number] [place] [address] Feb, [facility] [place] [facility] [address] [id number] [place] [address] Jan, [facility] [place] [facility] [address] [id number] [place] [address] Jan, [facility] [place] [facility] [address] [id number] [place] [address] Jan, [facility] [place] [facility] [address] [id number] [place] [address] Jan, [facility] [place] [facility] [address] [id number] [place] [address] Jan, [facility] [place] [facility] [address] [id number] [place] [address] Jan, [facility] [facility] [address] [id number] [place] [address] Jan, [facility] [place] [facility] [address] [id number] [place] [address] 89[address] Jan, [facility] [place] [facility] [address] [id number] [place] [address] 4818 Jan, [facility] [place] [facility] [address] [id number] [place] [address] 7684 Jan, [facility] [place] [facility] [address] [id number] [place] [address] 9328 Dec, [facility] [place] [facility] [address] [id number] [place] [address]- 4218 Dec, [facility] [place] [facility] [address] [id number] [place] [address] 2203 Dec, [facility] [place] [facility] [address] [id number] [place] [address] 2805 Dec, [facility] [place] [facility] [address] [id number] [place] [address]- 7349 Dec, [facility] [place] [facility] [address] [id number] [place] [address]- 2125 Dec, [facility] [place] [facility] [address] [id number] [place] [address]- 6941 Dec, [facility] [place] [facility] [address] [id number] [place] [address]- 2035 Dec, [facility] [place] [facility] [address] [id number] [place] [address]- 4236 Dec, [facility] [place] [facility] [address] [id number] [place] [address]- 0824 Dec, [facility] [place] [facility] [address] [id number] [place] [address]- 2738 Dec, [facility] [place] [facility] [address] [id number] [place] [address]- 1377 Dec, [facility] [place] [facility] [address] [id number] [place] [address]- 9877 Dec, [facility] [place] [facility] [address] [id number] [place] [address]- 0808 Dec, [facility] [place] [facility] [address] [id number] [place] [address]- 6903 Dec, [facility] [place] [facility] [address] [id number] [place] [address] 30 Nov, 2013 [facility] [address] [id number] [place] [address]- 2885 30 Nov, 2013 [facility] [place] [facility] [address] [id number] [place] [address]- 4257 Nov, [facility] [place] [address] [id number] [place] [address]- 6071 Nov, 2013 [facility] [place] [facility] [address] [id number] [place] [address]- 2792 24 Nov, 2013 [facility] [place] [facility] [address] [id number] [place] [address]- 5960 24 Sep, 2013 [facility] [place] [facility] [address] [id number] [place] [address] 2546 23 Sep, 2013 [facility] [place] [facility] [address] [id number] [place] [address] 2546 23 Nov, 2013 [facility] [place] [facility] [address] [id number] [place] [address] 2546 18 Nov, 2013 [facility] [place] [facility] [address] [id number] [place] [address] 2546 18 Nov, 2013 [facility] [place] [facility] [address] [id number] [place] [address]- 5769 17 Nov, 2013 [facility] [place] [facility] [address] [id number] [place] [address] 254 17 Nov, 2013 [facility] [place] [address] [id number] [place] [address]- 8673 11 Nov, 2013 [facility] [place] [facility] [address] [id number] [place] [address] 2549 11 Nov, 2013 [facility] [place] [facility] [address] [id number] [place] [address]- 8423 10 Nov, 2013 [facility] [place] [address] [id number] [place] [address]- 2544 10 Nov, 2013 [facility] [place] [address] [id number] [place] [address] 2540 08 Nov, 2013 [facility] [place] [address] [id number] [place] [address]- 2541 08 Nov, 2013 [facility] [place] [address] [id number] [place] [address]- 1800 22 Sep, 2013 [facility] [place] [facility] [address] [id number] [place] [address]- 8811 Sep, 2013 [facility] [place] [facility] [address] [id number] [place] [address]- 0742 11 Sep, 2013 [facility] [address] [id number] [place] [address]- 5287 Sep, [facility] [address] [id number] [place] [address]- 3628 Sep, [facility] [address] [id number] [place] [address]- 9196 Sep, [facility] [address] [id number] [place] [address]- 8027 Aug, [facility] [address] [id number] [place] [address]- 5578 Aug, [facility] [address] [id number] [place] [address]- 7476 Aug, [facility] [address] [id number] [place] [address]- 3589 Aug, [facility] [address] [id number] [place] [address]- 3950 Aug, [facility] [address] [id number] [place] [address]- 2321 Aug, [facility] [address] [id number] [place] [address]- 9343 Aug, [facility] [address] [id number] [place] [address]- 5187 Aug, [facility] [address] [id number] [place] [address]- 0017 Aug, [facility] [address] [id number] [place] [address]- 6921 Aug, [facility] [address] [id number] [place] [address]- 4299 Aug, [facility] [address] [id number] [place] [address]- 7895 July, [facility] [address] [id number] [place] [address]- 0358 July, [facility] [address] [id number] [place] [address]- 9209 Jun, [facility] [address] [id number] [place] [address]- 7297 Jun, [facility] [address] [id number] [place] [address]- 4236 Jun, [facility] [address] [id number] [place] [address]- 9320 Jun, [facility] [address] [id number] [place] [address]- 5809 Jun, [facility] [address] [id number] [place] [address]- 8770 Jun, [facility] [address] [id number] [place] [address]- 0645 Jun, [facility] [address] [id number] [place] [address]- 9104 Jun, [facility] [address] [id number] [place] [address]- 5727 Jun, [facility] [address] [id number] [place] [address]- 3763 Jun, [facility] [address] [id number] [place] [address]- 1660 Jun, [facility] [address] [id number] [place] [address]- 7903 Jun, [facility] [address] [id number] [place] [address]- 6648 May, [facility] [address] [id number] [place] [address]- 0481 May, [facility] [address] [id number] [place] [address]- 2013 May, [facility] [address] [id number] [place] [address]- 5544 May, [facility] [address] [id number] [place] [address]- 9225 May, [facility] [address] [id number] [place] [address]- 6487 May, [facility] [address] [id number] [place] [address]- 6287 May, [facility] [address] [id number] [place] [address]- 8548 May, [facility] [address] [id number] [place] [address]- 4911 May, [facility] [address] [id number] [place] [address]- 4265 May, [facility] [address] [id number] [place] [address]- 8869 May, [facility] [address] [id number] [place] [address]- 6575 May, [facility] [address] [id number] [place] [address]- 9095 Apr, [facility] [address] [facility] [id number] [place] [address]- 4680 Apr, [facility] [address] [id number] [place] [address]- 3315 Apr, [facility] [address] [id number] [place] [address]- 7449 Apr, [facility] [address] [id number] [place] [address]- 6295 Apr, [facility] [address] [id number] [place] [address]- 1855 Apr, [facility] [address] [id number] [place] [address]- 4612 Apr, [facility] [address] [id number] [place] [address]- 4316 Apr, [facility] [address] [id number] [place] [address]- 8426 Apr, [facility] [address] [facility] [id number] [place] [address]- 3516 Apr, [facility] [address] [id number] [place] [address]- 4149 Apr, [facility] [address] [id number] [place] [address]- 7199 Apr, [facility] [address] [facility] [id number] [place] [address]- 5976 Apr, [facility] [address] [facility] [id number] [place] [address]- 7199 Apr, [facility] [address] [facility] [id number] [place] [address]- 0972 Apr, [facility] [address] [facility] [id number] [place] [address]- 8107 Apr, [facility] [address] [facility] [id number] [place] [address]- 3949 Apr, [facility] [address] [facility] [id number] [place] [address]- 8837 Jan, [facility] [address] [facility] [id number] [place] [address]- 3490 Jan, [facility] [address] [facility] [id number] [place] [address]- 1727 Jan, [facility] [address] [facility] [id number] [place] [address]- 1031 Jan, [facility] [address] [facility] [id number] [place] [address]- 2834 Jan, [facility] [address] [id number] [place] [address]- 0898 Jan, [facility] [address] [id number] [place] [address]- 8953 Jan, [facility] [address] [id number] [place] [address]- 1886 Dec, [facility] [address] [id number] [place] [address]- 8300 Dec, [facility] [address] [id number] [place] [address]- 3462 Dec, [facility] [address] [id number] [place] [address]- 2264 Nov, [facility] [address] [id number] [place] [address]- 5606 Nov, [facility] [address] [id number] [place] [address]- 4660 05 Nov, 2012 [facility] [address] [id number] [place] [address]- 3619 Nov, [facility] [address] [id number] [place] [address]- 4160 Oct, [facility] [address] [id number] [place] [address]- 8520 Oct, [facility] [address] [id number] [place] [address]- 7154 Oct, [facility] [address] [id number] [place] [address]- 2612 Oct, [facility] [address] [id number] [place] [address]- 1640 Oct, [facility] [address] [id number] [place] [address]- 3728 Sep, [facility] [address] [id number] [place] [address]- 1252 Sep, [facility] [address] [id number] [place] [address]- 2777 Sep, [facility] [address] [id number] [place] [address]- 8126 Sep, [facility] [address] [id number] [place] [address]- 3504 Sep, [facility] [address] [id number] [place] [address]- 8816 Sep, [facility] [address] [id number] [place] [address]- 2525 Sep, [facility] [address] [id number] [place] [address]- 5626 Aug, [facility] [address] [id number] [place] [address]- 2022 Aug, [facility] [address] [id number] [place] [address]- 9235 July, [facility] [address] [id number] [place] [address]- 7525 Jun, [facility] [address] [id number] [place] [address]- 7166 Jun, [facility] [address] [id number] [place] [address]- 3030 Jun, [facility] [address] [id number] [place] [address]- 5865 Apr, [facility] [address] [id number] [place] [address]61 Apr, [facility] [address] [id number] [place] [address] Apr, [facility] [address] [id number] [place] [address]- 9152 Mar, [facility] [address] [id number] [place] [address]- 3869 24 Mar, 2012 [facility] [address] [id number] [place] [address]- 5376 2012 [facility] [address] [id number] [place] [address]- 8192 09 Mar, 2012 [facility] [address] [id number] [place] [address]- 7415 Mar, [facility] [address] [id number] [place] [address]- 3337 14 Feb, 2012 [facility] [address] [id number] [place] [address]- 0975 14 Feb, 2012 [facility] [address] [id number] [place] [address]- 7406 Jan, [facility] [place] [facility] [address] [id number] [place] [address]- 2818 Jan, [facility] [address] [id number] [place] [address]- 9053 Jan, [facility] [address] [id number] [place] [address]- 2935 Jan, [facility] [address] [facility] [id number] [place] [address]- 0416 Jan, [facility] [place] [facility] [address] [id number] [place] [address]- 9143 Jan, [facility] [place] [facility] [address] [id number] [place] [address]- 9847 Jan, [facility] [place] [facility] [address] [id number] [place] [address]- 5476 Dec, [facility] [place] [facility] [address] [id number] [place] [address]- 0322 Dec, [facility] [place] [facility] [address] [id number] [place] [address]- 7315 Dec, [facility] [place] [facility] [address] [id number] [place] [address]- 8946 Dec, [facility] [place] [facility] [address] [id number] [place] [address]- 4072 Dec, [facility] [place] [facility] [address] [id number] [place] [address]- 3910 Dec, [facility] [place] [facility] [address] [id number] [place] [address]- 4471 Dec, [facility] [place] [facility] [address] [id number] [place] [address]- 2556 Dec, [facility] [place] [facility] [address] [id number] [place] [address]- 9787 Dec, [facility] [place] [facility] [address] [id number] [place] [address]- 0558 Dec, [facility] [place] [facility] [address] [id number] [place] [address]- 7700 Oct, [facility] [place] [facility] [address] [id number] [place] [address]- 0332 Oct, [facility] [place] [facility] [address] [id number] [place] [address]- 3547 Aug, [facility] [place] [facility] [address] [id number] [place] [address]- 4120 Aug, [facility] [place] [facility] [address] [id number] [place] [address]- 0441 July, [facility] [place] [facility] [address] [id number] [place] [address]- 2294 Jun, [facility] [place] [facility] [address] [id number] [place] [address]- 0466 Jun, [facility] [place] [facility] [address] [id number] [place] [address]- 1930 May, [facility] [place] [facility] [address] [id number] [place] [address]- 7928 Apr, [facility] [address] [id number] [place] [address]- 3736 Apr, [facility] [place] [facility] [address] [id number] [place] [address] 2546 Mar, [facility] [address] [id number] [place] [address]- 0866 Mar, [facility] [address] [id number] [place] [address] 2548 19 Feb, 2011 [facility] [address] [id number] [place] [address]- 9057 15 Feb, 2011 [facility] [address] [id number] [place] [address]- 2365 13 Feb, 2011 [facility] [address] [id number] [place] [address]- 1754 13 Feb, 2011 [facility] [address] [id number] [place] [address]- 7918 Jan, [facility] [address] [id number] [place] [address]- 3950 17 Dec, 2010 [facility] [address] [facility] [id number] [place] [address]- 1249 08 Feb, 2010 [facility] [facility] [address] [id number] [place] [address] 2546 Feb, [facility] [facility] [address] [id number] [place] [address]- 2549 Feb, [facility] [place] [facility] [address] [id number] [place] [address] 2543 Feb, [facility] [place] [facility] [address] [id number] [place] [address]- 2546 15 Dec, 2009 [facility] [place] [facility] [address] [id number] [place] [address]- 9500 Dec, [facility] [address] [facility] [id number] [place] [address]- 5502 Oct, [facility] [address] [id number] [place] [address]- 5476 Jun, [facility] [address] [id number] [place] [address]- 2336 Feb, [facility] [address] [id number] [place] [address]- 4326 Feb, [facility] [address] [id number] [place] [address]- 3788 Feb, [facility] [address] [id number] [place] [address]- 6195 Dec, IMMUNIZATIONS No Known Immunizations SOCIAL HISTORY Never Assessed REASON FOR VISIT EMR-[facility] [place] PLAN OF CARE VITAL SIGNS MEDICATIONS Unknown Medications RESULTS No Results PROCEDURES No Known procedures INSTRUCTIONS MEDICATIONS ADMINISTERED No Known Medications MEDICAL (GENERAL) HISTORY Type Description Date Medical History obesity Medical History Hematologic disorder factor clotting problem Medical History DVT's Medical History Torn Rotator Cuff, repaired 09/23/17 Surgical History Lap Band 10/2012 Surgical History section 1985, 1987 Surgical History cholecystectomy Surgical History Roslyn Filter 06/2009 Surgical History Left leg exploratory surgery r/t clot 1987 Surgical History left shoulder surgery 09/14/17 Surgical History lap band removed 12/2017 Hospitalization History Ruptured Ovarian Cyst with abd bleeding 11/2009
--- OUTSIDE RECORDS SUMMARY | 2018-08-02 08:40 | XMS REPORT ---
Author Author Migration, Doctor Organization [facility] Address Unknown Phone Unavailable Care Team Providers Care Teacher Dramatics Name Role Phone Migration, Doctor Unavailable Unavailable PROBLEMS Type Condition ICD9-CM Code IRU48-SX Code Onset Dates Condition Status SNOMED Code Problem Factor V Leiden D68.51 Active 925376935 Problem Thyroid follicular adenoma D34 Active 829017046 Problem Hypertriglyceridemia E78.1 Active 772094171 Problem History of DVT (deep vein thrombosis) Z86.718 Active 424582441 Problem Presence of IVC filter Z95.828 Active 584846147 Problem 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 Active 975517566 Problem Pelvic pain R10.2 Active 33149749 Problem Morbid obesity E66.01 Active 998605144 Problem Generalized anxiety disorder F41.1 Active 866626705 Problem Obstructive sleep apnea G47.33 Active 28112178 Problem prison (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 Active 440385401 Problem Peripheral edema R60.9 Active 856869943 Problem Excessive daytime sleepiness G47.19 Active 565054292737 Problem Gastroesophageal reflux disease, esophagitis presence not specified K21.9 Active 575334138 Problem Thyroid nodule E04.1 Active 022716698 ALLERGIES No Information ENCOUNTERS Encounter Location Date Diagnosis [facility] [id number] [place] [address] 25217- 5214 Apr, [facility] [id number] [place] [address] 93487- 4248 18 Apr, 2018 Morbid obesity E66.01 [facility] [id number] [place] [address] 19695- 1399 Apr, Morbid obesity E66.01 ; Hypertriglyceridemia E78.1 ; Gastroesophageal reflux disease, esophagitis presence not specified K21.9 and Joint pain M25.50 [facility] [id number] [place] [address] 52176- 7323 Feb, [facility] [address] [address] 8[address] Feb, [facility] [id number] [place] [address] 54404 -6114 Jan, Acute bacterial conjunctivitis H10.30 [facility] [id number] [place] [address] 57428- 3606 Dec, [facility] [id number] [place] [address] 378667- 9941 Dec, [facility] [id number] [place] [address] 90968- 3095 17 Nov, 2017 [facility] [id number] [place] [address] 835896- 1263 07 Nov, 2017 Obstructive sleep apnea G47.33 ; Morbid obesity E66.01 and Gastroesophageal reflux disease, esophagitis presence not specified K21.9 [facility] [id number] [place] [address] [id number] 06 Nov, 2017 Encounter for examination of eyes and vision without abnormal findings Z01.00 [facility] [id number] [place] [address] 47055- 4559 31 Oct, 2017 Thyroid nodule E04.1 and Screening for breast cancer Z12.31 [facility] [id number] [place] [address] 93872- 9365 23 Oct, 2017 History of DVT (deep vein thrombosis) Z86.718 ; Thyroid nodule E04.1 and Gastroesophageal reflux disease, esophagitis presence not specified K21.9 [facility] [address] [place] [address] 33973- 6135 Oct, [facility] [id number] [place] [address] 07647- 2326 Sep, [facility] [id number] [place] [address] 52609- 3214 Aug, [facility] [id number] [place] [address] 21812- 7252 Aug, [facility] [facility] [id number] [place] [address] 12016- 0775 Aug, Acute pain of left shoulder M25.512 and Thyroid nodule E04.1 [facility] [id number] [place] [address] 45352- 6576 July, Superior glenoid labrum lesion of left shoulder, subsequent encounter S43.432D [place] [address] 82985- 0168 Jun, History of DVT (deep vein thrombosis) Z86.718 [place] [address] 46555- 4433 Jun, History of DVT (deep vein thrombosis) Z86.718 [facility] [facility] [id number] [place] [address] 26836- 0014 Jun, Impingement syndrome, shoulder, left M75.42 [facility] [facility] [id number] [place] [address] 94525- 5352 May, Subacromial bursitis of left shoulder joint M75.52 [facility] [id number] [place] [address] 94852- 1566 May, [facility] [facility] [id number] [place] [address] 02845- 3587 May, Hypertriglyceridemia E78.1 ; prison (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 and Excessive daytime sleepiness G47.19 [facility] [facility] [id number] [place] [address] 96673- 0333 May, History of DVT (deep vein thrombosis) Z86.718 ; Generalized anxiety disorder F41.1 ; Hypertriglyceridemia E78.1 ; prison (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 ; Subacromial bursitis of left shoulder joint M75.52 and Excessive daytime sleepiness G47.19 [place] [id number] [place] [address] 11244- 2547 May, [facility] [address], [place] [address] 2546 May, prison (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 [facility] [address] [place] [address] 02542 2546 Apr, prison (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 [facility] [id number] [place] [address] 01653 2546 Apr, 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 [facility] [id number] [place] [address] 62703 2546 Apr, prison (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 [facility] [id number] [place] [address] 69801 2546 Apr, [facility] [id number] [place] [address] 29099 2546 Apr, prison (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 [facility] [address] [place] [address] 67399 2546 13 Apr, 2017 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 [facility] [address] [place] [address] 98920 2546 Apr, 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 [facility] [id number] [place] [address] 65528 2546 Apr, prison (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 [facility] [address] [place] [address] 01124 2546 07 Apr, 2017 prison (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 [facility] [address] [place] [address] 25511 2546 06 Apr, 2017 prison (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 [facility] [id number] [place] [address] 67818- 0589 Mar, 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 [facility] [id number] [place] [address] 20952- 2077 Mar, [facility] [id number] [place] [address] 78039- 1989 Mar, 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 [facility] [id number] [place] [address] [id number] Jan, Dental examination Z01.20 [facility] [address] [id number] Jan, [facility] [address] 41333- 9132 Jan, 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 [facility] [address] 85304- 3982 Jan, History of DVT (deep vein thrombosis) Z86.718 [place] [id number] [place] [address] 28120- 9007 Jan, Generalized anxiety disorder F41.1 and Peripheral edema R60.9 [facility] [id number] [place] [address] 11858- 3618 Nov, History of DVT (deep vein thrombosis) Z86.718 [facility] [id number] [place] [address] 48192- 2929 Nov, 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 [facility] [id number] [place] [address] 42829 -8545 Nov, Acute non-recurrent maxillary sinusitis J01.00 [facility] [id number] [place] [address] 96037- 2887 Oct, 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 [facility] [address] [place] [address]- 3143 Oct, Personal history of venous thrombosis and embolism Z86.718 [place] [id number] [place] [address] 30279- 8387 Sep, [place] [id number] [place] [address] 72489- 9042 Sep, Personal history of venous thrombosis and embolism Z86.718 [place] [id number] [place] [address] 81052- 7290 Sep, prison (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 [place] [id number] [place] [address] 93906- 0672 Sep, prison (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 [place] [id number] [place] [address] 84915- 3707 Sep, Generalized anxiety disorder F41.1 and History of DVT (deep vein thrombosis) Z86.718 [place] [address] [place] [address] 68938- 2907 Aug, History of DVT (deep vein thrombosis) Z86.718 ; Generalized anxiety disorder F41.1 ; 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 ; Pelvic pain R10.2 ; Hypertriglyceridemia E78.1 ; Excessive daytime sleepiness G47.19 ; Colon cancer screening Z12.11 ; Screening for breast cancer Z12.39 ; Peripheral edema R60.9 and Gastroesophageal reflux disease, esophagitis presence not specified K21.9 [place] [address] [address]- 4572 Aug, [place] [id number] [place] [address] 32560- 0744 July, [facility] [facility] [id number] [place] [address] 55349- 2433 July, History of DVT (deep vein thrombosis) Z86.718 [place] [id number] [place] [address] 95948- 1502 Jun, Generalized anxiety disorder F41.1 [place] [address] 97778- 8735 Jun, History of DVT (deep vein thrombosis) Z86.718 [facility] [id number] [place] [address] 71826- 4052 Jun, History of DVT (deep vein thrombosis) Z86.718 [place] [address] 06624- 1622 Jun, History of DVT (deep vein thrombosis) Z86.718 [place] [address] 98085- 2707 Jun, History of DVT (deep vein thrombosis) Z86.718 [place] [address] 98987- 5364 May, History of DVT (deep vein thrombosis) Z86.718 [place] [id number] [place] [address] 31682- 6313 May, 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 [id number] [place] [address] 57194 -3893 Apr, Bacterial conjunctivitis of left eye H10.9 and H/O motion sickness Z87.898 [facility] [address] [place] [address] 07969- 7382 Apr, History of DVT (deep vein thrombosis) Z86.718 [facility] [address] 75198762- 2546 23 Apr, 2016 History of DVT (deep vein thrombosis) Z86.718 [facility] [id number] [place] [address] 20353 2546 15 Apr, 2016 History of DVT (deep vein thrombosis) Z86.718 [facility] [address] [place] [address] 08054 2546 14 Apr, 2016 prison (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 [place] [id number] [place] [address] 73280 2546 Mar, [place] [id number] [place] [address] 90519 2546 Mar, prison (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 [place] [id number] [place] [address] 06926 2546 Mar, Hypertriglyceridemia E78.1 and prison (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 [place] [address] [place] [address] 50284 2546 Feb, 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 [place] [id number] [place] [address] 17335 2546 Feb, prison (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 [place] [address] [place] [address] 42061 2546 Feb, prison (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 [place] [address] [place] [address] 36805 2546 Dec, [place] [id number] [place] [address] 16035 2546 Nov, [place] [address], [place] [address] 2546 13 Nov, 2015 History of DVT (deep vein thrombosis) Z86.718 ; Tremulousness R25.1 ; Generalized anxiety disorder F41.1 ; Peripheral edema R60.9 and Hypertriglyceridemia E78.1 [place] [id number] [place] [address] 48075- 1265 Oct, History of DVT (deep vein thrombosis) Z86.718 [place] [id number] [place] [address] 30651- 1304 Oct, [place] [address] 51268- 8706 Sep, History of DVT (deep vein thrombosis) Z86.718 [place] [id number] [place] [address] 92996- 2114 Sep, 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 [id number] [place] [address] 39297 -7321 Jun, Coccyx pain M53.3 ; Encounter for therapeutic drug level monitoring Z51.81 and parts counterman current 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.01 [place] [id number] [place] [address] 31286- 6647 May, Abnormal mammogram R92.8 [facility] [id number] [place] [address] 83879 -4272 May, 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 [place] [address] 83159- 0255 Apr, Peripheral edema R60.9 and prison (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 [place] [address] 54090 254 Apr, prison (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 [place] [address] 10779 2546 Apr, [place] [address] 57121- 2546 Apr, 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 [place] [id number] [place] [address] 85032 2546 Apr, Peripheral edema R60.9 [place] [address] 97449 2546 Mar, prison (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 [place] [id number] [place] [address] 94474 2546 Mar, prison (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 and Hypertriglyceridemia E78.1 [place] [address], [place] [address]- 8858 Mar, 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 [place] [address] [place] [address] 86520- 2530 Mar, prison (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 [place] [address] [place] [address] 30727- 8677 Mar, [place] [address] [place] [address] 40830- 7145 Mar, 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 ; Hypertriglyceridemia E78.1 ; Personal history of venous thrombosis and embolism Z86.718 and Lump R22.9 [place] [address] [place] [address] 36721- 6436 Mar, Personal history of venous thrombosis and embolism Z86.718 [place] [address] [place] [address] 10880- 5295 Mar, Personal history of venous thrombosis and embolism Z86.718 [place] [address] [place] [address] 53476- 8225 Mar, [place] [address] [place] [address] 70761- 5906 Dec, Personal history of venous thrombosis and embolism Z86.718 [place] [address] [place] [address] 51850- 4177 Dec, Personal history of venous thrombosis and embolism V12.51 [place] [address] [address]- 6022 Nov, Personal history of venous thrombosis and embolism V12.51 [place] [address] [address]- 3271 Nov, Personal history of venous thrombosis and embolism V12.51 [place] [address] [place] [address] 71043- 8356 Nov, Personal history of venous thrombosis and embolism V12.51 [facility] [address] 3204 Nov, Personal history of venous thrombosis and embolism V12.51 [facility] [address], [place] [address]- 0875 Nov, [facility] [id number] [place] [address] 58520- 6971 Oct, Dysuria 788.1 [facility] [address] [place] [address] 70565- 5646 Oct, Personal history of venous thrombosis and embolism V12.51 [facility] [address] [place] [address] 18561- 8392 Oct, [facility] [id number] [place] [address] 61133- 9111 Oct, Personal history of venous thrombosis and embolism V12.51 [facility] [address] [place] [address] 75338- 9797 Sep, Personal history of venous thrombosis and embolism V12.51 [facility] [address] [address]- 0007 Sep, Personal history of venous thrombosis and embolism V12.51 [facility] [address], [place] [address]- 7699 Aug, Personal history of venous thrombosis and embolism V12.51 [facility] [id number] [address]- 0855 Aug, Personal history of venous thrombosis and embolism V12.51 [facility] [address] [address]- 6335 Aug, Personal history of venous thrombosis and embolism V12.51 [facility] [id number] [address]- 6841 July, Generalized anxiety disorder 300.02 ; Abdominal pain, left lower quadrant 789.04 and Personal history of venous thrombosis and embolism V12.51 [facility] [address]- 2738 14 Jun, 2014 [facility] [address] 1893 Jun, [facility] [id number] [place] [address] 792329- 9920 May, [facility] [address] [facility] [id number] [address]- 4999 May, [facility] [id number] [place] [address] 91528- 2952 May, [facility] [id number] 5521 May, [facility] [id number] [place] [address] 14388- 7258 May, [facility] [address], [place] [address]- 8798 May, [facility] [address], [place] [address]- 7462 May, [facility] [address], [place] [address]- 1986 May, [facility] [address], [place] [address]- 1005 Apr, [facility] [address] 0361 Apr, [facility] [address] 1925 Apr, [facility] [address] 6396 Apr, [facility] [id number] [address]- 4674 Apr, [facility] [address] [id number] [place] [address]- 6214 Mar, [facility] [place] [facility] [address] [id number] [place] [address]- 3956 Mar, [facility] [place] [facility] [address] [id number] [place] [address]- 0378 Mar, [facility] [place] [facility] [address] [id number] [place] [address]- 4671 Mar, [facility] [place] [facility] [address] [id number] [place] [address]- 7352 Mar, [facility] [place] [facility] [address] [id number] [place] [address]- [address] Mar, [facility] [place] [facility] [address] [facility] [id number] [place] [address] Feb, [facility] [place] [facility] [address] [id number] [place] [address] Feb, [facility] [place] [facility] [address] [id number] [place] [address] Feb, [facility] [place] [facility] [address] [facility] [id number] [place] [address] Feb, [facility] [place] [facility] [address] [id number] [place] [address] Feb, [facility] [place] [facility] [address] [id number] [place] [address] Feb, [facility] [place] [facility] [address] [id number] [place] [address] Feb, [facility] [place] [facility] [address] [id number] [place] [address] Feb, [facility] [place] [facility] [address] [facility] [id number] [place] [address] Feb, [facility] [place] [facility] [address] [id number] [place] [address] Feb, [facility] [place] [facility] [address] [id number] [place] [address] Jan, [facility] [place] [facility] [address] [id number] [place] [address] Jan, [facility] [place] [facility] [address] [id number] [place] [address] Jan, [facility] [place] [facility] [address] [id number] [place] [address]- [address] Jan, [facility] [place] [facility] [address] [id number] [place] [address] Jan, [facility] [place] [facility] [address] [id number] [place] [address] Jan, [facility] [place] [facility] [address] [id number] [place] [address]- [address] Jan, [facility] [place] [facility] [address] [id number] [place] [address] Jan, [facility] [place] [facility] [address] [id number] [place] [address] Jan, [facility] [place] [facility] [address] [id number] [place] [address] Jan, [facility] [place] [facility] [address] [id number] [place] [address] Dec, [facility] [place] [facility] [address] [id number] [place] [address] Dec, [facility] [place] [facility] [address] [id number] [place] [address] Dec, [facility] [place] [facility] [address] [id number] [place] [address] Dec, [facility] [place] [facility] [address] [address] [id number] [place] [address] Dec, [facility] [place] [facility] [address] [id number] [place] [address] 2642 Dec, [facility] [place] [facility] [address] [id number] [place] [address] 6271 Dec, [facility] [place] [facility] [address] [id number] [place] [address] Dec, [facility] [place] [facility] [address] [id number] [place] [address] 3345 Dec, [facility] [place] [facility] [address] [id number] [place] [address]- 0225 Dec, [facility] [place] [facility] [address] [id number] [place] [address] 7883 Dec, [facility] [place] [facility] [address] [id number] [place] [address] 5174 Dec, [facility] [place] [facility] [address] [id number] [place] [address] 3998 Dec, [facility] [place] [facility] [address] [id number] [place] [address]- 0480 Dec, [facility] [place] [facility] [address] [id number] [place] [address]- 0245 Dec, [facility] [place] [facility] [address] [id number], [place] [address] 30 Nov, 2013 [facility] [place] [facility] [address] [id number], [place] [address] 30 Nov, 2013 [facility] [place] [facility] [address] [id number] [place] [address]- 9214 Nov, [facility] [place] [facility] [address] [id number] [place] [address]- 1529 Nov, 2013 [facility] [place] [facility] [address] [id number] [place] [address]- 8564 24 Nov, 2013 [facility] [place] [facility] [address] [id number] [place] [address]- 4722 24 Sep, 2013 [facility] [place] [facility] [address] [id number] [place] [address] 2546 23 Sep, 2013 [facility] [place] [facility] [address] [id number] [place] [address] 2546 23 Nov, 2013 [facility] [place] [facility] [address] [id number] [place] [address] 2546 18 Nov, 2013 [facility] [place] [facility] [address] [id number] [place] [address] 2546 18 Nov, 2013 [facility] [place] [facility] [address] [id number] [place] [address]- 1032 17 Nov, 2013 [facility] [place] [facility] [address] [id number] [place] [address] 2549 17 Nov, 2013 [facility] [place] [facility] [address] [id number] [place] [address]- 0334 11 Nov, 2013 [facility] [place] [facility] [address] [id number] [place] [address] 2542 11 Nov, 2013 [facility] [place] [facility] [address] [id number] [place] [address]- 9807 10 Nov, 2013 [facility] [place] [facility] [address] [id number] [place] [address]- 2545 10 Nov, 2013 [facility] [place] [facility] [address] [id number] [place] [address] 2545 08 Nov, 2013 [facility] [place] [facility] [address] [id number] [place] [address]- 2549 08 Nov, 2013 [facility] [place] [facility] [address] [id number] [place] [address]- 6456 22 Sep, 2013 [facility] [place] [facility] [address] [id number] [place] [address]- 2675 Sep, 2013 [facility] [place] [facility] [address] [id number] [place] [address]- 5129 11 Sep, 2013 [facility] [place] [facility] [address] [id number] [place] [address]- 5456 Sep, [facility] [place] [facility] [address] [id number] [place] [address]- 7070 Sep, [facility] [place] [facility] [address] [id number] [place] [address] 3739 Sep, [facility] [place] [facility] [address] [id number] [place] [address]- 9874 Aug, [facility] [place] [facility] [address] [id number] [place] [address]- 9482 Aug, [facility] [place] [facility] [address] [id number] [place] [address]- 9243 Aug, [facility] [place] [facility] [address] [id number] [place] [address]- 7114 Aug, [facility] [place] [facility] [address] [id number] [place] [address]- 7195 Aug, [facility] [place] [facility] [address] [id number] [place] [address]- 3004 Aug, [facility] [place] [facility] [address] [id number] [place] [address]- 0730 Aug, [facility] [place] [facility] [address] [id number] [place] [address]- 8907 Aug, [facility] [place] [facility] [address] [id number] [place] [address]- 9557 Aug, [facility] [place] [facility] [address] [id number] [place] [address]- 6779 Aug, [facility] [place] [facility] [address] [id number] [place] [address]- 0944 Aug, [facility] [place] [facility] [address] [id number] [place] [address]- 8044 July, [facility] [place] [facility] [address] [id number] [place] [address]- 8319 July, [facility] [place] [facility] [address] [id number] [place] [address]- 4615 Jun, [facility] [place] [facility] [address] [id number] [place] [address]- 9941 Jun, [facility] [place] [facility] [address] [id number] [place] [address]- 7629 Jun, [facility] [place] [facility] [address] [id number] [place] [address]- 8818 Jun, [facility] [place] [facility] [address] [id number] [place] [address]- 2399 Jun, [facility] [place] [facility] [address] [id number] [place] [address]- 0945 Jun, [facility] [place] [facility] [address] [id number] [place] [address]- 1809 Jun, [facility] [place] [facility] [address] [id number] [place] [address]- 3399 Jun, [facility] [place] [facility] [address] [id number] [place] [address]- 5531 Jun, [facility] [place] [facility] [address] [id number] [place] [address]- 3423 Jun, [facility] [place] [facility] [address] [id number] [place] [address]- 3277 Jun, [facility] [place] [facility] [address] [id number] [place] [address]- 4958 Jun, [facility] [place] [facility] [address] [id number] [place] [address]- 8662 May, [facility] [place] [facility] [address] [id number] [place] [address]- 0617 May, [facility] [place] [facility] [address] [id number] [place] [address]- 1981 May, [facility] [place] [facility] [address] [id number] [place] [address]- 8755 May, [facility] [place] [facility] [address] [id number] [place] [address]- 3865 May, [facility] [place] [facility] [address] [id number] [place] [address]- 7932 May, [facility] [place] [facility] [address] [id number] [place] [address]- 6147 May, [facility] [place] [facility] [address] [id number] [place] [address]- 6165 May, [facility] [place] [facility] [address] [id number] [place] [address]- 0413 May, [facility] [place] [facility] [address] [id number] [place] [address]- 6108 May, [facility] [place] [facility] [address] [id number] [place] [address]- 0566 May, [facility] [place] [facility] [address] [id number] [place] [address]- 7302 May, [facility] [place] [facility] [address] [id number] [place] [address]- 0153 Apr, [facility] [place] [facility] [address] [facility] [id number] [place] [address]- 7923 Apr, [facility] [place] [facility] [address] [id number] [place] [address]- 5779 Apr, [facility] [place] [facility] [address] [id number] [place] [address]- 5441 Apr, [facility] [place] [facility] [address] [id number] [place] [address]- 4633 Apr, [facility] [place] [facility] [address] [id number] [place] [address]- 9728 Apr, [facility] [place] [facility] [address] [id number] [place] [address]- 7179 Apr, [facility] [place] [facility] [address] [id number] [place] [address]- 5306 Apr, [facility] [place] [facility] [address] [id number] [place] [address]- 3096 Apr, [facility] [place] [facility] [address] [facility] [id number] [place] [address]- 8966 Apr, [facility] [place] [facility] [address] [id number] [place] [address]- 5941 Apr, [facility] [place] [facility] [address] [id number] [place] [address]- 4101 Apr, [facility] [place] [facility] [address] [facility] [id number] [place] [address]- 0115 Apr, [facility] [place] [facility] [address] [facility] [id number] [place] [address]- 9444 Apr, [facility] [place] [facility] [address] [facility] [id number] [place] [address]- 9445 Apr, [facility] [place] [facility] [address] [facility] [id number] [place] [address]- 3425 Apr, [facility] [place] [facility] [address] [facility] [id number] [place] [address]- 7348 Apr, [facility] [place] [facility] [address] [facility] [id number] [place] [address]- 4489 Jan, [facility] [place] [facility] [address] [facility] [id number], [place] [address]- 8750 Jan, [facility] [place] [facility] [address] [facility] [id number] [place] [address]- 7706 Jan, [facility] [place] [facility] [address] [facility] [id number], [place] [address]- 7145 Jan, [facility] [place] [facility] [address] [facility] [id number], [place] [address]- 5251 Jan, [facility] [place] [facility] [address] [id number] [place] [address]- 7808 Jan, [facility] [place] [facility] [address] [id number] [place] [address]- 6243 Jan, [facility] [place] [facility] [address] [id number] [place] [address]- 9725 Dec, [facility] [place] [facility] [address] [id number] [place] [address]- 7706 Dec, [facility] [place] [facility] [address] [id number] [place] [address]- 3376 Dec, [facility] [place] [facility] [address] [id number] [place] [address]- 1243 Nov, [facility] [place] [facility] [address] [id number] [place] [address]- 1869 Nov, [facility] [place] [facility] [address] [id number] [place] [address]- 7833 05 Nov, 2012 [facility] [place] [facility] [address] [id number] [place] [address]- 7122 Nov, [facility] [place] [facility] [address] [id number] [place] [address]- 1406 Oct, [facility] [place] [facility] [address] [id number] [place] [address]- 3417 Oct, [facility] [place] [facility] [address] [id number] [place] [address]- 0736 Oct, [facility] [place] [facility] [address] [id number] [place] [address]- 4920 Oct, [facility] [place] [facility] [address] [id number] [place] [address]- 4372 Oct, [facility] [place] [facility] [address] [id number] [place] [address]- 0226 Sep, [facility] [place] [facility] [address] [id number] [place] [address]- 1186 Sep, [facility] [address] [id number] [place] [address]- 2752 Sep, [facility] [place] [facility] [address] [id number] [place] [address]- 6342 Sep, [facility] [place] [facility] [address] [id number] [place] [address]- 5850 Sep, [facility] [place] [facility] [address] [id number] [place] [address]- 9274 Sep, [facility] [place] [facility] [address] [id number] [place] [address]- 3511 Sep, [facility] [place] [facility] [address] [id number] [place] [address]- 0702 Aug, [facility] [place] [facility] [address] [id number] [place] [address]- 8493 Aug, [facility] [place] [facility] [address] [id number] [place] [address]- 2988 July, [facility] [place] [facility] [address] [id number] [place] [address]- 4841 Jun, [facility] [place] [facility] [address] [id number] [place] [address]- 2003 Jun, [facility] [place] [facility] [address] [id number] [place] [address]- 4217 Jun, [facility] [place] [facility] [address] [id number] [place] [address]- 0342 Apr, [facility] [place] [facility] [address] [id number] [place] [address]327 Apr, [facility] [place] [facility] [address] [id number] [place] [address]27 Apr, [facility] [place] [facility] [address] [id number] [place] [address]- 5726 Mar, [facility] [place] [facility] [address] [id number] [place] [address]- 8542 24 Mar, 2012 [facility] [place] [facility] [address] [id number] [place] [address]- 9916 2012 [facility] [place] [facility] [address] [id number] [place] [address]- 2270 09 Mar, 2012 [facility] [place] [facility] [address] [id number] [place] [address]- 8827 Mar, [facility] [place] [facility] [address] [id number] [place] [address]- 9248 14 Feb, 2012 [facility] [place] [facility] [address] [id number] [place] [address]- 9482 14 Feb, 2012 [facility] [place] [facility] [address] [id number] [place] [address]- 0091 Jan, [facility] [place] [facility] [address] [id number] [place] [address]- 4079 Jan, [facility] [place] [facility] [address] [id number] [place] [address]- 7082 Jan, [facility] [place] [facility] [address] [id number] [place] [address]- 4607 Jan, [facility] [place] [facility] [address] [facility] [id number] [place] [address]- 2677 Jan, [facility] [place] [facility] [address] [id number] [place] [address]- 0750 Jan, [facility] [place] [facility] [address] [id number] [place] [address]- 1076 Jan, [facility] [place] [facility] [address] [id number] [place] [address]- 9055 Dec, [facility] [place] [facility] [address] [id number] [place] [address]- 8970 Dec, [facility] [place] [facility] [address] [id number] [place] [address]- 2143 Dec, [facility] [place] [facility] [address] [id number] [place] [address]- 3978 Dec, [facility] [place] [facility] [address] [id number] [place] [address]- 6217 Dec, [facility] [place] [facility] [address] [id number] [place] [address]- 0346 Dec, [facility] [place] [facility] [address] [id number] [place] [address]- 8819 Dec, [facility] [place] [facility] [address] [id number] [place] [address]- 0129 Dec, [facility] [place] [facility] [address] [id number] [place] [address]- 7176 Dec, [facility] [place] [facility] [address] [id number] [place] [address]- 9848 Dec, [facility] [place] [facility] [address] [id number] [place] [address]- 6062 Oct, [facility] [place] [facility] [address] [id number] [place] [address]- 9442 Oct, [facility] [place] [facility] [address] [id number], [place] [address]- 6096 Aug, [facility] [place] [facility] [address] [id number], [place] [address]- 1264 Aug, [facility] [place] [facility] [address] [id number], [place] [address]- 8487 July, [facility] [place] [facility] [address] [id number] [place] [address]- 7897 Jun, [facility] [place] [facility] [address] [id number], [place] [address]- 1180 Jun, [facility] [place] [facility] [address] [id number] [place] [address]- 0839 May, [facility] [place] [facility] [address] [id number] [place] [address]- 8438 Apr, [facility] [address] [id number] [place] [address]- 6296 Apr, [facility] [place] [facility] [address] [id number] [place] [address] 2546 Mar, [facility] [address] [id number] [place] [address]- 9286 Mar, [facility] [address] [id number] [place] [address] 2549 19 Feb, 2011 [facility] [address] [id number] [place] [address]- 1349 15 Feb, 2011 [facility] [address] [id number] [place] [address]- 7564 13 Feb, 2011 [facility] [address] [id number] [place] [address]- 0200 13 Feb, 2011 [facility] [address] [id number] [place] [address]- 6762 Jan, [facility] [address] [id number] [place] [address]- 5618 17 Dec, 2010 [facility] [address] [facility] [id number] [place] [address]- 6151 08 Feb, 2010 [facility] [place] [facility] [address] [id number] [place] [address] 2546 Feb, [facility] [place] [facility] [address] [id number] [place] [address]- 254 Feb, [facility] [place] [facility] [address] [id number] [place] [address] 2542 Feb, [facility] [place] [facility] [address] [id number] [place] [address]- 2546 15 Dec, 2009 [facility] [place] [facility] [address] [id number] [place] [address]- 1185 Dec, [facility] [address] [facility] [id number], [place] [address]- 8537 Oct, [facility] [address] [id number], [place] [address]- 6536 Jun, [facility] [address] [id number], [place] [address]- 5336 Feb, [facility] [address] [id number], [place] [address]- 9286 Feb, [facility] [address] [id number], [place] [address]- 7855 Feb, [facility] [address] [id number], [place] [address] 1924 Dec, IMMUNIZATIONS No Known Immunizations SOCIAL HISTORY Never Assessed REASON FOR VISIT EMR-[facility] [place] PLAN OF CARE VITAL SIGNS MEDICATIONS Unknown [...]
--- OUTSIDE RECORDS SUMMARY | 2018-08-02 08:41 | XMS REPORT ---
Author Author Migration, Doctor Organization [facility] Address Unknown Phone Unavailable Care Team Providers Care Retail Maintenance Technician Name Role Phone Migration, Doctor Unavailable Unavailable PROBLEMS Type Condition ICD9-CM Code [id number] Code Onset Dates Condition Status SNOMED Code Problem Factor V Leiden D68.51 Active 382657607 Problem Thyroid follicular adenoma D34 Active 293554272 Problem Hypertriglyceridemia E78.1 Active 846857251 Problem History of DVT (deep vein thrombosis) Z86.718 Active 953932587 Problem Presence of IVC filter Z95.828 Active 208184988 Problem 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 Active 169902981 Problem Pelvic pain R10.2 Active 14178355 Problem Morbid obesity E66.01 Active 652144810 Problem Generalized anxiety disorder F41.1 Active 276136609 Problem Obstructive sleep apnea G47.33 Active 89033898 Problem group home (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 Active 565464981 Problem Peripheral edema R60.9 Active 186090140 Problem Excessive daytime sleepiness G47.19 Active 889311225604 Problem Gastroesophageal reflux disease, esophagitis presence not specified K21.9 Active 175811739 Problem Thyroid nodule E04.1 Active 181971300 ALLERGIES No Information ENCOUNTERS Encounter Location Date Diagnosis [facility] [address] [place] [address] 23031- 9331 Apr, [facility] [id number] [place] [address] 62281- 3856 18 Apr, 2018 Morbid obesity E66.01 [facility] [id number] [place] [address] 67226- 0804 Apr, Morbid obesity E66.01 ; Hypertriglyceridemia E78.1 ; Gastroesophageal reflux disease, esophagitis presence not specified K21.9 and Joint pain M25.50 [facility] [id number] [place] [address] 80243- 7499 Feb, [facility] [address], [place] [address] 9866 Feb, [facility] [id number] [place] [address] 33952 -8021 Jan, Acute bacterial conjunctivitis H10.30 [facility] [id number] [place] [address] 85225- 6256 Dec, [facility] [id number] [place] [address] 431697- 9021 Dec, [facility] [id number] [place] [address] 43488- 0370 17 Nov, 2017 [facility] [id number] [place] [address] 978932- 0723 07 Nov, 2017 Obstructive sleep apnea G47.33 ; Morbid obesity E66.01 and Gastroesophageal reflux disease, esophagitis presence not specified K21.9 [facility] [id number] [place] [address] [id number] 06 Nov, 2017 Encounter for examination of eyes and vision without abnormal findings Z01.00 [facility] [id number] [place] [address] 81012- 1658 31 Oct, 2017 Thyroid nodule E04.1 and Screening for breast cancer Z12.31 [facility] [id number] [place] [address] 37640- 9252 23 Oct, 2017 History of DVT (deep vein thrombosis) Z86.718 ; Thyroid nodule E04.1 and Gastroesophageal reflux disease, esophagitis presence not specified K21.9 [facility] [address] [place] [address] 93589- 4461 Oct, [facility] [id number] [place] [address] 51989- 7526 Sep, [facility] [address] [place] [address] 82292- 3256 Aug, [facility] [id number] [place] [address] 13858- 3435 Aug, [facility] [id number] [place] [address] 28057- 3282 Aug, Acute pain of left shoulder M25.512 and Thyroid nodule E04.1 [facility] [id number] [place] [address] 91114- 2307 July, Superior glenoid labrum lesion of left shoulder, subsequent encounter S43.432D [facility] [address] 02897- 0896 Jun, History of DVT (deep vein thrombosis) Z86.718 [facility] [address] 26566- 6628 Jun, History of DVT (deep vein thrombosis) Z86.718 [facility] [id number] [place] [address] 31692- 0816 Jun, Impingement syndrome, shoulder, left M75.42 [facility] [id number] [place] [address] 13283- 3700 May, Subacromial bursitis of left shoulder joint M75.52 [facility] [id number] [place] [address] 87382- 4567 May, [facility] [id number] [place] [address] 92684- 9392 May, Hypertriglyceridemia E78.1 ; group home (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 and Excessive daytime sleepiness G47.19 [facility] [id number] [place] [address] 64950- 4153 May, History of DVT (deep vein thrombosis) Z86.718 ; Generalized anxiety disorder F41.1 ; Hypertriglyceridemia E78.1 ; group home (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 ; Subacromial bursitis of left shoulder joint M75.52 and Excessive daytime sleepiness G47.19 [facility] [id number] [place] [address] 66959- 2548 May, [facility] [address] [address] 2546 May, group home (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 [facility] [address] [place] [address] 90909 2546 Apr, group home (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 [facility] [id number] [place] [address] 22280 2546 Apr, 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 [facility] [id number] [place] [address] 77058 2546 Apr, group home (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 [facility] [id number] [place] [address] 11755 2546 Apr, [facility] [id number] [place] [address] 72266 2546 Apr, group home (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 [facility] [address] [place] [address] 52606 2546 13 Apr, 2017 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 [facility] [address] [place] [address] 71263 2546 Apr, 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 [facility] [id number] [place] [address] 10412 2546 Apr, group home (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 [facility] [address] [place] [address] 10591 2546 07 Apr, 2017 group home (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 [facility] [address] [place] [address] 99292 2546 06 Apr, 2017 group home (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 [facility] [id number] [place] [address] 30114- 3280 Mar, 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 [facility] [id number] [place] [address] 08611- 4563 Mar, [facility] [id number] [place] [address] 34213- 2843 Mar, 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 [facility] [id number] [place] [address] [phone] Jan, Dental examination Z01.20 [facility] [address] [id number] Jan, [facility] [address] 21721- 6408 Jan, 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 [facility] [address] 71435- 4129 Jan, History of DVT (deep vein thrombosis) Z86.718 [facility] [id number] [place] [address] 62484- 8536 Jan, Generalized anxiety disorder F41.1 and Peripheral edema R60.9 [facility] [id number] [place] [address] 86056- 9401 Nov, History of DVT (deep vein thrombosis) Z86.718 [facility] [id number] [place] [address] 93306- 4672 Nov, 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 [facility] [id number] [place] [address] 54001 -0664 Nov, Acute non-recurrent maxillary sinusitis J01.00 [facility] [id number] [place] [address] 15491- 4389 Oct, 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 [facility] [address] [place] [address]- 9104 Oct, Personal history of venous thrombosis and embolism Z86.718 [facility] [id number] [place] [address] 95697- 7982 Sep, [facility] [id number] [place] [address] 05764- 2363 Sep, Personal history of venous thrombosis and embolism Z86.718 [facility] [id number] [place] [address] 21470- 3138 Sep, group home (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 [facility] [id number] [place] [address] 99441- 6467 Sep, group home (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 [facility] [id number] [place] [address] 50911- 2080 Sep, Generalized anxiety disorder F41.1 and History of DVT (deep vein thrombosis) Z86.718 [facility] [address] [place] [address] 42903- 0354 Aug, History of DVT (deep vein thrombosis) Z86.718 ; Generalized anxiety disorder F41.1 ; 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 ; Pelvic pain R10.2 ; Hypertriglyceridemia E78.1 ; Excessive daytime sleepiness G47.19 ; Colon cancer screening Z12.11 ; Screening for breast cancer Z12.39 ; Peripheral edema R60.9 and Gastroesophageal reflux disease, esophagitis presence not specified K21.9 [facility] [address] [address]- 6652 Aug, [facility] [id number] [place] [address] 74147- 6025 July, [facility] [id number] [place] [address] 59341- 4841 July, History of DVT (deep vein thrombosis) Z86.718 [facility] [id number] [place] [address] 44651- 3267 Jun, Generalized anxiety disorder F41.1 [facility] [address] 89065- 8287 Jun, History of DVT (deep vein thrombosis) Z86.718 [facility] [id number] [place] [address] 10047- 3500 Jun, History of DVT (deep vein thrombosis) Z86.718 [facility] [facility] [address] 38500- 5304 Jun, History of DVT (deep vein thrombosis) Z86.718 [facility] [address] 28900- 7415 Jun, History of DVT (deep vein thrombosis) Z86.718 [facility] [facility] [address] 65836- 7376 May, History of DVT (deep vein thrombosis) Z86.718 [facility] [id number] [place] [address] 66344- 9039 May, 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 [facility] [id number] [place] [address] 20152- 8286 May, group home (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 [facility] [id number] [place] [address] 01913- 4264 May, History of DVT (deep vein thrombosis) Z86.718 [facility] [id number] [place] [address] 39337 -9995 Apr, Bacterial conjunctivitis of left eye H10.9 and H/O motion sickness Z87.898 [facility] [address] [place] [address] 01564- 7046 Apr, History of DVT (deep vein thrombosis) Z86.718 [facility] [id number]- 2546 23 Apr, 2016 History of DVT (deep vein thrombosis) Z86.718 [facility] [id number] [place] [address] 77336 2546 15 Apr, 2016 History of DVT (deep vein thrombosis) Z86.718 [facility] [address] [place] [address] 39635 2546 14 Apr, 2016 group home (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 [facility] [id number] [place] [address] 87308 2546 Mar, [facility] [id number] [place] [address] 92870 2546 Mar, group home (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 [facility] [id number] [place] [address] 34756 2546 Mar, Hypertriglyceridemia E78.1 and group home (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 [facility] [id number] [place] [address] 15183 2546 Feb, 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 [facility] [id number] [place] [address] 96909 2546 Feb, group home (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 [facility] [address] [place] [address] 04405 2546 Feb, group home (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 [facility] [facility] [address] [place] [address] 68771 2546 Dec, [facility] [id number] [place] [address] 01253 2546 Nov, [facility] [address] [address] 2546 13 Nov, 2015 History of DVT (deep vein thrombosis) Z86.718 ; Tremulousness R25.1 ; Generalized anxiety disorder F41.1 ; Peripheral edema R60.9 and Hypertriglyceridemia E78.1 [facility] [id number] [place] [address] 08012- 2715 Oct, History of DVT (deep vein thrombosis) Z86.718 [facility] [id number] [place] [address] 69167- 1947 Oct, [facility] [address] 60683- 6712 Sep, History of DVT (deep vein thrombosis) Z86.718 [facility] [id number] [place] [address] 75055- 8481 Sep, 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 [place] [facility] [address] 08231- 2431 July, [facility] [address] 59699- 6360 July, group home (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 [facility] [id number] [place] [address] 37581- 6635 July, group home (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 [facility] [id number] [place] [address] 54715- 1279 Jun, 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 [facility] [id number] [place] [address] 12439 -6193 Jun, Coccyx pain M53.3 ; Encounter for therapeutic drug level monitoring Z51.81 and 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 termite current use 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.01 [facility] [id number] [place] [address] 46341- 9807 May, Abnormal mammogram R92.8 [facility] [id number] [place] [address] 66437 -9572 May, [facility] [address] 10891 -6988 May, Acute vaginitis N76.0 and Encounter for other screening for malignant neoplasm of breast Z12.39 [facility] [facility] [address] 61687- 9266 Apr, [facility] [address] 86062- 4156 Apr, [facility] [address] 57885- 8195 Apr, Peripheral edema R60.9 [facility] [facility] [address] 55176- 0617 Apr, 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 [place] [facility] [address] 05850- 0175 Apr, Peripheral edema R60.9 and group home (current) use of anticoagulants Z79.01 [facility] [facility] [address] 39470 2543 Apr, group home (current) use of anticoagulants Z79.01 [place] [facility] [address] 74908 2546 Apr, [place] [facility] [address] 27046- 2546 Apr, 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 [place] [facility] [id number] [place] [address] 81973 2546 Apr, Peripheral edema R60.9 [facility] [facility] [address] 16469 2546 Mar, group home (current) use of anticoagulants Z79.01 [facility] [id number] [place] [address] 11992 2546 Mar, group home (current) use of anticoagulants Z79.01 and Hypertriglyceridemia E78.1 [facility] [address] [address]- 5978 Mar, 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 [facility] [address] [place] [address] 83633- 3792 Mar, group home (current) use of anticoagulants Z79.01 [facility] [facility] [address] [place] [address] 95582- 3598 Mar, [facility] [address] [place] [address] 86606- 7214 Mar, 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 ; Hypertriglyceridemia E78.1 ; Personal history of venous thrombosis and embolism Z86.718 and Lump R22.9 [facility] [address] [place] [address] 21405- 9282 Mar, Personal history of venous thrombosis and embolism Z86.718 [facility] [address] [place] [address] 17456- 5146 Mar, Personal history of venous thrombosis and embolism Z86.718 [facility] [address] [place] [address] 31027- 1633 Mar, [facility] [address] [place] [address] 65686- 0142 Dec, Personal history of venous thrombosis and embolism Z86.718 [facility] [address] [place] [address] 25912- 1238 Dec, Personal history of venous thrombosis and embolism V12.51 [facility] [address] [address]- 2598 Nov, Personal history of venous thrombosis and embolism V12.51 [facility] [address] [address]- 0297 Nov, Personal history of venous thrombosis and embolism V12.51 [facility] [address] [place] [address] 06306- 9509 Nov, Personal history of venous thrombosis and embolism V12.51 [facility] [address] [address]- 9442 Nov, Personal history of venous thrombosis and embolism V12.51 [facility] [address] [address]- 4418 Nov, [facility] [id number] [place] [address] 09671- 0390 Oct, Dysuria 788.1 [facility] [address] [place] [address] 30662- 7011 Oct, Personal history of venous thrombosis and embolism V12.51 [facility] [address] [place] [address] 17995- 6522 Oct, [facility] [id number] [place] [address] 76971- 2459 Oct, Personal history of venous thrombosis and embolism V12.51 [facility] [address] [place] [address] 25028- 1320 Sep, Personal history of venous thrombosis and embolism V12.51 [facility] [address] [address]- 5153 Sep, Personal history of venous thrombosis and embolism V12.51 [facility] [address] [address]- 5187 Aug, Personal history of venous thrombosis and embolism V12.51 [facility] [id number] [address]- 0691 Aug, Personal history of venous thrombosis and embolism V12.51 [facility] [address], [place] [address]- 8283 Aug, Personal history of venous thrombosis and embolism V12.51 [facility] [id number] [address]- 3241 July, Generalized anxiety disorder 300.02 ; Abdominal pain, left lower quadrant 789.04 and Personal history of venous thrombosis and embolism V12.51 [facility] [address] [address]- 3425 14 Jun, 2014 [facility] [address]- 6612 Jun, [facility] [id number] [place] [address] 261473- 8467 May, [facility] [address] [facility] [id number] [address]- 1141 May, [facility] [id number] [place] [address] 80821- 2587 May, [facility] [id number]- 1889 May, [facility] [id number] [place] [address] 46782- 2261 May, [facility] [address] [address]- 9215 May, [facility] [address] [address]- 3480 May, [facility] [address] [address]- 3563 May, [facility] [address], [place] [address]- 1501 Apr, [facility] [address] 1551 Apr, [facility] [address] 1101 Apr, [facility] [address] 0886 Apr, [facility] [id number] [address]- 2520 Apr, [facility] [address] [id number] [place] [address]- 5560 Mar, [facility] [place] [facility] [address] [id number] [place] [address]- 7926 Mar, [facility] [place] [facility] [address] [id number] [place] [address]- 0684 Mar, [facility] [place] [facility] [address] [id number] [place] [address]- 6748 Mar, [facility] [place] [facility] [address] [id number] [place] [address]- 9867 Mar, [facility] [place] [facility] [address] [id number] [place] [address]- 8681 Mar, [facility] [place] [facility] [address] [facility] [id number] [place] [address]- 9988 Feb, [facility] [place] [facility] [address] [id number] [place] [address]- 0004 Feb, [facility] [place] [facility] [address] [id number] [place] [address]- 4868 Feb, [facility] [place] [facility] [address] [facility] [id number] [place] [address]- 3211 Feb, [facility] [place] [facility] [address] [id number] [place] [address]- 7116 Feb, [facility] [place] [facility] [address] [id number] [place] [address] Feb, [facility] [place] [facility] [address] [id number] [place] [address] Feb, [facility] [place] [facility] [address] [id number] [place] [address] Feb, [facility] [place] [facility] [address] [facility] [id number] [place] [address] Feb, [facility] [place] [facility] [address] [id number] [place] [address] Feb, [facility] [place] [facility] [address] [id number] [place] [address] Jan, [facility] [place] [facility] [address] [id number] [place] [address] Jan, [facility] [place] [facility] [address] [id number] [place] [address] Jan, [facility] [place] [facility] [address] [id number] [place] [address] Jan, [facility] [place] [facility] [address] [id number] [place] [address] Jan, [facility] [place] [facility] [address] [id number] [place] [address] Jan, [facility] [place] [facility] [address] [id number] [place] [address] Jan, [facility] [place] [facility] [address] [id number] [place] [address] Jan, [facility] [place] [facility] [address] [id number] [place] [address] Jan, [facility] [place] [facility] [address] [id number] [place] [address] Jan, [facility] [place] [facility] [address] [id number] [place] [address] Dec, [facility] [place] [facility] [address] [id number] [place] [address] Dec, [facility] [place] [facility] [address] [id number] [place] [address] Dec, [facility] [place] [facility] [address] [id number] [place] [address] Dec, [facility] [place] [facility] [address] [id number] [place] [address] 67[address] Dec, [facility] [place] [facility] [address] [id number] [place] [address] 5183 Dec, [facility] [place] [facility] [address] [id number] [place] [address] 3647 Dec, [facility] [place] [facility] [address] [id number] [place] [address]397 Dec, [facility] [place] [facility] [address] [id number] [place] [address]- 5578 Dec, [facility] [place] [facility] [address] [id number] [place] [address] 5698 Dec, [facility] [place] [facility] [address] [id number] [place] [address] 9695 Dec, [facility] [place] [facility] [address] [id number] [place] [address]- 1799 Dec, [facility] [place] [facility] [address] [id number] [place] [address] 9041 Dec, [facility] [place] [facility] [address] [id number] [place] [address] 1867 Dec, [facility] [place] [facility] [address] [id number] [place] [address]- 2170 Dec, [facility] [place] [facility] [address] [id number], [place] [address] 30 Nov, 2013 [facility] [place] [facility] [address] [id number], [place] [address] 30 Nov, 2013 [facility] [place] [facility] [address] [id number] [place] [address]- 1623 Nov, [facility] [place] [facility] [address] [id number] [place] [address] 1500 Nov, 2013 [facility] [place] [facility] [address] [id number] [place] [address]- 2772 24 Nov, 2013 [facility] [place] [facility] [address] [id number] [place] [address]- 3509 24 Sep, 2013 [facility] [place] [facility] [address] [id number] [place] [address] 2546 23 Sep, 2013 [facility] [place] [facility] [address] [id number] [place] [address] 2546 23 Nov, 2013 [facility] [place] [facility] [address] [id number] [place] [address] 2546 18 Nov, 2013 [facility] [place] [facility] [address] [id number] [place] [address] 2546 18 Nov, 2013 [facility] [place] [facility] [address] [id number] [place] [address]- 5798 17 Nov, 2013 [facility] [place] [facility] [address] [id number] [place] [address] 2544 17 Nov, 2013 [facility] [place] [facility] [address] [id number] [place] [address]- 2751 11 Nov, 2013 [facility] [place] [facility] [address] [id number] [place] [address] 2540 11 Nov, 2013 [facility] [place] [facility] [address] [id number] [place] [address]- 5847 10 Nov, 2013 [facility] [place] [facility] [address] [id number] [place] [address]- 2549 10 Nov, 2013 [facility] [place] [facility] [address] [id number] [place] [address] 254 08 Nov, 2013 [facility] [place] [facility] [address] [id number] [place] [address]- 2543 08 Nov, 2013 [facility] [place] [facility] [address] [id number] [place] [address]- 1505 22 Sep, 2013 [facility] [place] [facility] [address] [id number] [place] [address]- 5719 Sep, 2013 [facility] [place] [facility] [address] [id number] [place] [address]- 1608 11 Sep, 2013 [facility] [place] [facility] [address] [id number] [place] [address]- 5131 Sep, [facility] [place] [facility] [address] [id number] [place] [address]- 1847 Sep, [facility] [place] [facility] [address] [id number] [place] [address] 3800 Sep, [facility] [place] [facility] [address] [id number] [place] [address] 6281 Aug, [facility] [place] [facility] [address] [id number] [place] [address]- 0305 Aug, [facility] [place] [facility] [address] [id number] [place] [address]- 2688 Aug, [facility] [place] [facility] [address] [id number] [place] [address]- 8308 Aug, [facility] [place] [facility] [address] [id number] [place] [address]- 0587 Aug, [facility] [place] [facility] [address] [id number] [place] [address]- 9288 Aug, [facility] [place] [facility] [address] [id number] [place] [address]- 3953 Aug, [facility] [place] [facility] [address] [id number] [place] [address]- 1566 Aug, [facility] [place] [facility] [address] [id number] [place] [address]- 4667 Aug, [facility] [place] [facility] [address] [id number] [place] [address]- 4661 Aug, [facility] [place] [facility] [address] [id number] [place] [address] 1970 Aug, [facility] [place] [facility] [address] [id number] [place] [address]- 5402 July, [facility] [place] [facility] [address] [id number] [place] [address]- 2040 July, [facility] [place] [facility] [address] [id number] [place] [address]- 9811 Jun, [facility] [place] [facility] [address] [id number] [place] [address]- 8664 Jun, [facility] [place] [facility] [address] [id number] [place] [address]- 7772 Jun, [facility] [place] [facility] [address] [id number] [place] [address]- 4713 Jun, [facility] [place] [facility] [address] [id number] [place] [address]- 7275 Jun, [facility] [place] [facility] [address] [id number] [place] [address]- 8080 Jun, [facility] [place] [facility] [address] [id number] [place] [address]- 9047 Jun, [facility] [place] [facility] [address] [id number] [place] [address]- 1724 Jun, [facility] [place] [facility] [address] [id number] [place] [address]- 0653 Jun, [facility] [place] [facility] [address] [id number] [place] [address]- 8595 Jun, [facility] [place] [facility] [address] [id number] [place] [address]- 5408 Jun, [facility] [place] [facility] [address] [id number] [place] [address]- 7175 Jun, [facility] [place] [facility] [address] [id number] [place] [address]- 4866 May, [facility] [place] [facility] [address] [id number] [place] [address]- 0074 May, [facility] [place] [facility] [address] [id number] [place] [address]- 3449 May, [facility] [place] [facility] [address] [id number] [place] [address]- 0034 May, [facility] [place] [facility] [address] [id number] [place] [address]- 9787 May, [facility] [place] [facility] [address] [id number] [place] [address]- 5563 May, [facility] [place] [facility] [address] [id number] [place] [address]- 3852 May, [facility] [place] [facility] [address] [id number] [place] [address]- 6268 May, [facility] [place] [facility] [address] [id number] [place] [address]- 7381 May, [facility] [place] [facility] [address] [id number] [place] [address]- 2487 May, [facility] [place] [facility] [address] [id number] [place] [address]- 7084 May, [facility] [place] [facility] [address] [id number] [place] [address]- 9521 May, [facility] [place] [facility] [address] [id number] [place] [address]- 8027 Apr, [facility] [place] [facility] [address] [facility] [id number] [place] [address]- 5815 Apr, [facility] [place] [facility] [address] [id number] [place] [address]- 7567 Apr, [facility] [place] [facility] [address] [id number] [place] [address]- 2617 Apr, [facility] [place] [facility] [address] [id number] [place] [address]- 6064 Apr, [facility] [place] [facility] [address] [id number] [place] [address]- 4687 Apr, [facility] [place] [facility] [address] [id number] [place] [address]- 4120 Apr, [facility] [place] [facility] [address] [id number] [place] [address]- 3636 Apr, [facility] [place] [facility] [address] [id number] [place] [address]- 9006 Apr, [facility] [place] [facility] [address] [facility] [id number] [place] [address]- 0716 Apr, [facility] [place] [facility] [address] [id number] [place] [address]- 6751 Apr, [facility] [place] [facility] [address] [id number] [place] [address]- 5474 Apr, [facility] [place] [facility] [address] [facility] [id number] [place] [address]- 6217 Apr, [facility] [place] [facility] [address] [facility] [id number] [place] [address]- 8766 Apr, [facility] [place] [facility] [address] [facility] [id number] [place] [address]- 6586 Apr, [facility] [place] [facility] [address] [facility] [id number] [place] [address]- 8185 Apr, [facility] [place] [facility] [address] [facility] [id number] [place] [address]- 9983 Apr, [facility] [place] [facility] [address] [facility] [id number] [place] [address]- 2495 Jan, [facility] [place] [facility] [address] [facility] [id number] [address]- 6128 Jan, [facility] [place] [facility] [address] [facility] [id number] [place] [address]- 5303 Jan, [facility] [place] [facility] [address] [facility] [id number], [place] [address]- 8858 Jan, [facility] [place] [facility] [address] [facility] [id number], [place] [address]- 6732 Jan, [facility] [place] [facility] [address] [id number] [place] [address]- 4111 Jan, [facility] [place] [facility] [address] [id number] [place] [address]- 1614 Jan, [facility] [place] [facility] [address] [id number] [place] [address]- 1370 Dec, [facility] [place] [facility] [address] [id number] [place] [address]- 6954 Dec, [facility] [place] [facility] [address] [id number] [place] [address]- 6032 Dec, [facility] [place] [facility] [address] [id number] [place] [address]- 6611 Nov, [facility] [place] [facility] [address] [id number] [place] [address]- 7204 Nov, [facility] [place] [facility] [address] [id number] [place] [address]- 4165 05 Nov, 2012 [facility] [place] [facility] [address] [id number] [place] [address]- 5799 Nov, [facility] [place] [facility] [address] [id number] [place] [address]- 4212 Oct, [facility] [place] [facility] [address] [id number] [place] [address]- 8833 Oct, [facility] [place] [facility] [address] [id number] [place] [address]- 5692 Oct, [facility] [place] [facility] [address] [id number] [place] [address]- 1404 Oct, [facility] [place] [facility] [address] [id number] [place] [address]- 3371 Oct, [facility] [place] [facility] [address] [id number] [place] [address]- 5350 Sep, [facility] [place] [facility] [address] [id number] [place] [address]- 2272 Sep, [facility] [address] [id number] [place] [address]- 0652 Sep, [facility] [place] [facility] [address] [id number] [place] [address]- 6503 Sep, [facility] [place] [facility] [address] [id number] [place] [address]- 4536 Sep, [facility] [place] [facility] [address] [id number] [place] [address]- 1828 Sep, [facility] [place] [facility] [address] [id number] [place] [address]- 4371 Sep, [facility] [place] [facility] [address] [id number] [place] [address]- 7261 Aug, [facility] [place] [facility] [address] [id number] [place] [address]- 1112 Aug, [facility] [place] [facility] [address] [id number] [place] [address]- 1444 July, [facility] [place] [facility] [address] [id number] [place] [address]- 3015 Jun, [facility] [place] [facility] [address] [id number] [place] [address]- 5381 Jun, [facility] [place] [facility] [address] [id number] [place] [address]- 7796 Jun, [facility] [place] [facility] [address] [id number] [place] [address]- 6516 Apr, [facility] [place] [facility] [address] [id number] [place] [address]36 Apr, [facility] [place] [facility] [address] [id number] [place] [address] Apr, [facility] [place] [facility] [address] [id number] [place] [address]- 7496 Mar, [facility] [place] [facility] [address] [id number] [place] [address]- 3176 24 Mar, 2012 [facility] [place] [facility] [address] [id number] [place] [address]- 2872 2012 [facility] [place] [facility] [address] [id number] [place] [address]- 0136 09 Mar, 2012 [facility] [place] [facility] [address] [id number] [place] [address]- 8134 Mar, [facility] [place] [facility] [address] [id number] [place] [address]- 0674 14 Feb, 2012 [facility] [place] [facility] [address] [id number] [place] [address]- 3977 14 Feb, 2012 [facility] [place] [facility] [address] [id number] [place] [address]- 6603 Jan, [facility] [place] [facility] [address] [id number] [place] [address]- 7226 Jan, [facility] [place] [facility] [address] [id number] [place] [address]- 3990 Jan, [facility] [place] [facility] [address] [id number] [place] [address]- 4244 Jan, [facility] [place] [facility] [address] [facility] [id number] [place] [address]- 3767 Jan, [facility] [place] [facility] [address] [id number] [place] [address]- 0015 Jan, [facility] [place] [facility] [address] [id number] [place] [address]- 2813 Jan, [facility] [place] [facility] [address] [id number] [place] [address]- 7888 Dec, [facility] [place] [facility] [address] [id number] [place] [address]- 0135 Dec, [facility] [place] [facility] [address] [id number] [place] [address]- 4955 Dec, [facility] [place] [facility] [address] [id number] [place] [address]- 5299 Dec, [facility] [place] [facility] [address] [id number] [place] [address]- 1573 Dec, [facility] [place] [facility] [address] [id number] [place] [address]- 4642 Dec, [facility] [place] [facility] [address] [id number] [place] [address]- 9444 Dec, [facility] [place] [facility] [address] [id number] [place] [address]- 4425 Dec, [facility] [place] [facility] [address] [id number] [place] [address]- 3946 Dec, [facility] [place] [facility] [address] [id number] [place] [address]- 7454 Dec, [facility] [place] [facility] [address] [id number] [place] [address]- 0936 Oct, [facility] [place] [facility] [address] [id number] [place] [address]- 9005 Oct, [facility] [place] [facility] [address] [id number], [place] [address]- 4272 Aug, [facility] [place] [facility] [address] [id number], [place] [address]- 5305 Aug, [facility] [place] [facility] [address] [id number], [place] [address]- 6340 July, [facility] [place] [facility] [address] [id number] [place] [address]- 2485 Jun, [facility] [place] [facility] [address] [id number], [place] [address]- 6259 Jun, [facility] [place] [facility] [address] [id number] [place] [address]- 2691 May, [facility] [place] [facility] [address] [id number] [place] [address]- 9871 Apr, [facility] [address] [id number] [place] [address]- 6016 Apr, [facility] [place] [facility] [address] [id number] [place] [address] 2546 Mar, [facility] [address] [id number] [place] [address]- 1326 Mar, [facility] [address] [id number] [place] [address] 2542 19 Feb, 2011 [facility] [address] [id number] [place] [address]- 0312 15 Feb, 2011 [facility] [address] [id number] [place] [address]- 2747 13 Feb, 2011 [facility] [address] [id number] [place] [address]- 0267 13 Feb, 2011 [facility] [address] [id number] [place] [address]- 5264 Jan, [facility] [address] [id number] [place] [address]- 4869 17 Dec, 2010 [facility] [address] [facility] [id number] [place] [address]- 9308 08 Feb, 2010 [facility] [place] [facility] [address] [id number] [place] [address] 2546 Feb, [facility] [place] [facility] [address] [id number] [place] [address]- 2547 Feb, [facility] [place] [facility] [address] [id number] [place] [address] 2544 Feb, [facility] [place] [facility] [address] [id number] [place] [address]- 2546 15 Dec, 2009 [facility] [place] [facility] [address] [id number] [place] [address]- 9190 Dec, [facility] [address] [facility] [id number], [place] [address]- 7722 Oct, [facility] [address] [id number], [place] [address]- 1466 Jun, [facility] [address] [id number], [place] [address]- 4456 Feb, [facility] [address] [id number], [place] [address]- 0876 Feb, [facility] [address] [id number], [place] [address]- 6630 Feb, [facility] [address] [id number], [place] [address]- 9852 Dec, IMMUNIZATIONS No Known Immunizations SOCIAL HISTORY Never Assessed REASON FOR VISIT EMR-[facility] PLAN OF CARE VITAL [...]
--- OUTSIDE RECORDS SUMMARY | 2018-08-02 08:42 | XMS REPORT ---
Author Author Migration, Doctor Organization [facility] Address Unknown Phone Unavailable Care Team Providers Care Mobile Security Architect Name Role Phone Migration, Doctor Unavailable Unavailable PROBLEMS Type Condition ICD9-CM Code [id number] Code Onset Dates Condition Status SNOMED Code Problem Factor V Leiden D68.51 Active 817233948 Problem Thyroid follicular adenoma D34 Active 754919933 Problem Hypertriglyceridemia E78.1 Active 374552535 Problem History of DVT (deep vein thrombosis) Z86.718 Active 338635243 Problem Presence of IVC filter Z95.828 Active 040697324 Problem 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 Active 570135339 Problem Pelvic pain R10.2 Active 72407160 Problem Morbid obesity E66.01 Active 677369605 Problem Generalized anxiety disorder F41.1 Active 263012888 Problem Obstructive sleep apnea G47.33 Active 32970930 Problem assisted (current) use of anticoagulants Z79.01 Active 043742946 Problem Peripheral edema R60.9 Active 849581138 Problem Excessive daytime sleepiness G47.19 Active 056142545320 Problem Gastroesophageal reflux disease, esophagitis presence not specified K21.9 Active 347408363 Problem Thyroid nodule E04.1 Active 648670472 ALLERGIES No Information ENCOUNTERS Encounter Location Date Diagnosis [facility] [id number] [place] [address] 22345- 7311 Apr, [facility] [id number] [place] [address] 77761- 5703 18 Apr, 2018 Morbid obesity E66.01 [facility] [id number] [place] [address] 57389- 0101 Apr, Morbid obesity E66.01 ; Hypertriglyceridemia E78.1 ; Gastroesophageal reflux disease, esophagitis presence not specified K21.9 and Joint pain M25.50 [facility] [id number] [place] [address] 31448- 6769 Feb, [facility] [address] [address] 164[address] Feb, [facility] [id number] [place] [address] 75117 -1371 Jan, Acute bacterial conjunctivitis H10.30 [facility] [id number] [place] [address] 26583- 6256 Dec, [facility] [id number] [place] [address] 212312- 7024 Dec, [facility] [id number] [place] [address] 53775- 1822 17 Nov, 2017 [facility] [id number] [place] [address] 409730- 9447 07 Nov, 2017 Obstructive sleep apnea G47.33 ; Morbid obesity E66.01 and Gastroesophageal reflux disease, esophagitis presence not specified K21.9 [facility] [id number] [place] [address] [id number] 06 Nov, 2017 Encounter for examination of eyes and vision without abnormal findings Z01.00 [facility] [id number] [place] [address] 34969- 3740 31 Oct, 2017 Thyroid nodule E04.1 and Screening for breast cancer Z12.31 [facility] [id number] [place] [address] 93765- 0873 23 Oct, 2017 History of DVT (deep vein thrombosis) Z86.718 ; Thyroid nodule E04.1 and Gastroesophageal reflux disease, esophagitis presence not specified K21.9 [facility] [id number] [place] [address] 00329- 2998 Oct, [facility] [id number] [place] [address] 08567- 7566 Sep, [facility] [address] [place] [address] 47771- 3835 Aug, [facility] [id number] [place] [address] 16333- 8174 Aug, [facility] [id number] [place] [address] 19885- 3209 Aug, Acute pain of left shoulder M25.512 and Thyroid nodule E04.1 [facility] [id number] [place] [address] 16176- 4550 July, Superior glenoid labrum lesion of left shoulder, subsequent encounter S43.432D [facility] [address] 54593- 6081 Jun, History of DVT (deep vein thrombosis) Z86.718 [facility] [address] 38867- 3874 Jun, History of DVT (deep vein thrombosis) Z86.718 [facility] [id number] [place] [address] 52877- 8182 Jun, Impingement syndrome, shoulder, left M75.42 [facility] [id number] [place] [address] 57477- 8544 May, Subacromial bursitis of left shoulder joint M75.52 [facility] [id number] [place] [address] 74182- 9161 May, [facility] [id number] [place] [address] 55871- 9900 May, Hypertriglyceridemia E78.1 ; assisted (current) use of anticoagulants Z79.01 and Excessive daytime sleepiness G47.19 [facility] [id number] [place] [address] 65639- 4190 May, History of DVT (deep vein thrombosis) Z86.718 ; Generalized anxiety disorder F41.1 ; Hypertriglyceridemia E78.1 ; assisted (current) use of anticoagulants Z79.01 ; Subacromial bursitis of left shoulder joint M75.52 and Excessive daytime sleepiness G47.19 [facility] [id number] [place] [address] 53355- 2542 May, [facility] [address] [address] 2546 May, assisted (current) use of anticoagulants Z79.01 [facility] [address] [place] [address] 12998 2546 Apr, assisted (current) use of anticoagulants Z79.01 [facility] [id number] [place] [address] 13947 2546 Apr, 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 [facility] [id number] [place] [address] 04914 2546 Apr, assisted (current) use of anticoagulants Z79.01 [facility] [id number] [place] [address] 33364 2546 Apr, [facility] [id number] [place] [address] 16214 2546 Apr, assisted (current) use of anticoagulants Z79.01 [facility] [address] [place] [address] 17665 2546 13 Apr, 2017 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 [facility] [address] [place] [address] 29006 2546 Apr, 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 [facility] [id number] [place] [address] 83318 2546 Apr, assisted (current) use of anticoagulants Z79.01 [facility] [address] [place] [address] 12519 2546 07 Apr, 2017 assisted (current) use of anticoagulants Z79.01 [facility] [address] [place] [address] 24919 2546 06 Apr, 2017 assisted (current) use of anticoagulants Z79.01 [facility] [id number] [place] [address] 66300- 2849 Mar, 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 [facility] [id number] [place] [address] 39177- 6633 Mar, [facility] [id number] [place] [address] 08980- 8727 Mar, 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 [facility] [id number] [place] [address] [id number] Jan, Dental examination Z01.20 [facility] [address] [id number] Jan, [facility] [address] 52411- 8662 Jan, 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 [facility] [address] 35113- 7203 Jan, History of DVT (deep vein thrombosis) Z86.718 [facility] [id number] [place] [address] 05495- 6821 Jan, Generalized anxiety disorder F41.1 and Peripheral edema R60.9 [facility] [id number] [place] [address] 16438- 9520 Nov, History of DVT (deep vein thrombosis) Z86.718 [facility] [id number] [place] [address] 18620- 4743 Nov, 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 [facility] [id number] [place] [address] 73062 -2264 Nov, Acute non-recurrent maxillary sinusitis J01.00 [facility] [id number] [place] [address] 80038- 6246 Oct, 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 [facility] [address] [place] [address]- 6696 Oct, Personal history of venous thrombosis and embolism Z86.718 [facility] [id number] [place] [address] 63757- 7644 Sep, [facility] [id number] [place] [address] 42960- 2852 Sep, Personal history of venous thrombosis and embolism Z86.718 [facility] [id number] [place] [address] 06618- 5136 Sep, assisted (current) use of anticoagulants Z79.01 [facility] [facility] [id number] [place] [address] 66320- 3691 Sep, assisted (current) use of anticoagulants Z79.01 [facility] [id number] [place] [address] 85908- 7104 Sep, Generalized anxiety disorder F41.1 and History of DVT (deep vein thrombosis) Z86.718 [place] [address] [place] [address] 77094- 7361 Aug, History of DVT (deep vein thrombosis) Z86.718 ; Generalized anxiety disorder F41.1 ; 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 ; Pelvic pain R10.2 ; Hypertriglyceridemia E78.1 ; Excessive daytime sleepiness G47.19 ; Colon cancer screening Z12.11 ; Screening for breast cancer Z12.39 ; Peripheral edema R60.9 and Gastroesophageal reflux disease, esophagitis presence not specified K21.9 [facility] [address] [address]- 5522 Aug, [facility] [id number] [place] [address] 14791- 8717 July, [facility] [id number] [place] [address] 32101- 6674 July, History of DVT (deep vein thrombosis) Z86.718 [facility] [id number] [place] [address] 63182- 6764 Jun, Generalized anxiety disorder F41.1 [place] [address] 88727- 0031 Jun, History of DVT (deep vein thrombosis) Z86.718 [facility] [id number] [place] [address] 12663- 3709 Jun, History of DVT (deep vein thrombosis) Z86.718 [place] [address] 64310- 7983 Jun, History of DVT (deep vein thrombosis) Z86.718 [place] [facility] [address] 82340- 8464 Jun, History of DVT (deep vein thrombosis) Z86.718 [place] [address] 82413- 2120 May, History of DVT (deep vein thrombosis) Z86.718 [facility] [id number] [place] [address] 22206- 7741 May, 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 [facility] [facility] [id number] [place] [address] 15511- 8908 May, assisted (current) use of anticoagulants Z79.01 [facility] [id number] [place] [address] 95366- 5548 May, History of DVT (deep vein thrombosis) Z86.718 [facility] [id number] [place] [address] 03367 -7196 Apr, Bacterial conjunctivitis of left eye H10.9 and H/O motion sickness Z87.898 [facility] [address] [place] [address] 02155- 1791 Apr, History of DVT (deep vein thrombosis) Z86.718 [facility] [address]- 2546 23 Apr, 2016 History of DVT (deep vein thrombosis) Z86.718 [facility] [id number] [place] [address] 48243 2546 15 Apr, 2016 History of DVT (deep vein thrombosis) Z86.718 [facility] [address] [place] [address] 47372 2546 14 Apr, 2016 assisted (current) use of anticoagulants Z79.01 [facility] [id number] [place] [address] 84802 2546 Mar, [facility] [id number] [place] [address] 72449 2546 Mar, assisted (current) use of anticoagulants Z79.01 [facility] [facility] [id number] [place] [address] 13978 2546 Mar, Hypertriglyceridemia E78.1 and assisted (current) use of anticoagulants Z79.01 [facility] [facility] [id number] [place] [address] 27383 2546 Feb, 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 [facility] [id number] [place] [address] 19570 2546 Feb, assisted (current) use of anticoagulants Z79.01 [facility] [address] [place] [address] 04116 2546 Feb, assisted (current) use of anticoagulants Z79.01 [facility] [facility] [address] [place] [address] 86825 2546 Dec, [facility] [id number] [place] [address] 51078 2546 Nov, [facility] [address], [place] [address] 2546 13 Nov, 2015 History of DVT (deep vein thrombosis) Z86.718 ; Tremulousness R25.1 ; Generalized anxiety disorder F41.1 ; Peripheral edema R60.9 and Hypertriglyceridemia E78.1 [place] [id number] [place] [address] 61977- 7641 Oct, History of DVT (deep vein thrombosis) Z86.718 [place] [id number] [place] [address] 74969- 3623 Oct, [facility] [address] 44251- 2682 Sep, History of DVT (deep vein thrombosis) Z86.718 [facility] [facility] [id number] [place] [address] 20071- 2693 Sep, 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 [place] [address] 11917- 1333 July, [facility] [address] 79323- 4707 July, assisted (current) use of anticoagulants Z79.01 [facility] [id number] [place] [address] 58529- 4017 July, assisted (current) use of anticoagulants Z79.01 [facility] [facility] [id number] [place] [address] 25726- 0898 Jun, 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 [facility] [id number] [place] [address] 66475 -8053 Jun, Coccyx pain M53.3 ; Encounter for therapeutic drug level monitoring Z51.81 and termite control technician current use 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.01 [place] [id number] [place] [address] 97686- 9848 May, Abnormal mammogram R92.8 [facility] [id number] [place] [address] 17508 -3139 May, [facility] [address] 45044 -0839 May, Acute vaginitis N76.0 and Encounter for other screening for malignant neoplasm of breast Z12.39 [place] [address] 45142- 7156 Apr, [place] [address] 10331- 6906 Apr, [place] [address] 16936- 9014 Apr, Peripheral edema R60.9 [place] [address] 71005- 2535 Apr, 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 [place] [address] 60485- 2510 Apr, Peripheral edema R60.9 and assisted (current) use of anticoagulants Z79.01 [place] [address] 87337 2540 Apr, assisted (current) use of anticoagulants Z79.01 [place] [address] 87281 2546 Apr, [place] [address] 08030- 2546 Apr, 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 [facility] [id number] [place] [address] 15566 2546 Apr, Peripheral edema R60.9 [place] [address] 56011 2546 Mar, assisted (current) use of anticoagulants Z79.01 [facility] [id number] [place] [address] 91272 2546 Mar, assisted (current) use of anticoagulants Z79.01 and Hypertriglyceridemia E78.1 [facility] [facility] [address], [place] [address]- 5635 Mar, 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 [place] [address] [place] [address] 88505- 6416 Mar, assisted (current) use of anticoagulants Z79.01 [place] [address] [place] [address] 48123- 8279 Mar, [facility] [place] [address] [place] [address] 47487- 6795 Mar, 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 ; Hypertriglyceridemia E78.1 ; Personal history of venous thrombosis and embolism Z86.718 and Lump R22.9 [place] [address] [place] [address] 70558- 2013 Mar, Personal history of venous thrombosis and embolism Z86.718 [facility] [address] [place] [address] 55057- 6695 Mar, Personal history of venous thrombosis and embolism Z86.718 [facility] [address] [place] [address] 59308- 7255 Mar, [facility] [address] [place] [address] 15689- 8313 Dec, Personal history of venous thrombosis and embolism Z86.718 [facility] [address] [place] [address] 60117- 5814 Dec, Personal history of venous thrombosis and embolism V12.51 [facility] [address] [address]- 4600 Nov, Personal history of venous thrombosis and embolism V12.51 [place] [address], [place] [address]- 0726 Nov, Personal history of venous thrombosis and embolism V12.51 [facility] [place] [address] [place] [address] 80504- 8568 Nov, Personal history of venous thrombosis and embolism V12.51 [facility] [address] 5803 Nov, Personal history of venous thrombosis and embolism V12.51 [facility] [address] [address]- 1127 Nov, [facility] [id number] [place] [address] 57313- 7371 Oct, Dysuria 788.1 [facility] [address] [place] [address] 51998- 0422 Oct, Personal history of venous thrombosis and embolism V12.51 [facility] [address] [place] [address] 94576- 9519 Oct, [facility] [id number] [place] [address] 20854- 5480 Oct, Personal history of venous thrombosis and embolism V12.51 [facility] [address] [place] [address] 66969- 2737 Sep, Personal history of venous thrombosis and embolism V12.51 [facility] [address] [address]- 3128 Sep, Personal history of venous thrombosis and embolism V12.51 [facility] [address] [address]- 7571 Aug, Personal history of venous thrombosis and embolism V12.51 [facility] [id number] [address]- 9210 Aug, Personal history of venous thrombosis and embolism V12.51 [facility] [address] [address]- 2787 Aug, Personal history of venous thrombosis and embolism V12.51 [facility] [id number] [address]- 0556 July, Generalized anxiety disorder 300.02 ; Abdominal pain, left lower quadrant 789.04 and Personal history of venous thrombosis and embolism V12.51 [facility] [address] 2405 14 Jun, 2014 [facility] [address] 2321 Jun, [facility] [id number] [place] [address] 661659- 2975 May, [facility] [address] [facility] [id number] [address]- 5388 May, [facility] [id number] [place] [address] 89474- 6369 May, [facility] [id number] 9926 May, [facility] [id number] [place] [address] 65168- 7249 May, [facility] [address], [place] [address]- 3848 May, [facility] [address], [place] [address]- 8831 May, [facility] [address] [address]- 2005 May, [facility] [address], [place] [address]- 3747 Apr, [facility] [address] 5921 Apr, [facility] [address]- 3434 Apr, [facility] [address] 1156 Apr, [facility] [id number] [address]- 8966 Apr, [facility] [address] [id number] [place] [address] Mar, [facility] [place] [facility] [address] [id number] [place] [address] Mar, [facility] [place] [facility] [address] [id number] [place] [address] Mar, [facility] [place] [facility] [address] [id number] [place] [address] Mar, [facility] [place] [facility] [address] [id number] [place] [address] Mar, [facility] [place] [facility] [address] [id number] [place] [address] Mar, [facility] [place] [facility] [address] [facility] [id number] [place] [address] Feb, [facility] [place] [facility] [address] [id number] [place] [address] Feb, [facility] [place] [facility] [address] [id number] [place] [address] Feb, [facility] [place] [facility] [address] [facility] [id number] [place] [address] Feb, [facility] [place] [facility] [address] [id number] [place] [address] Feb, [facility] [place] [facility] [address] [id number] [place] [address] Feb, [facility] [place] [facility] [address] [id number] [place] [address] Feb, [facility] [place] [facility] [address] [id number] [place] [address] Feb, [facility] [place] [facility] [address] [facility] [id number] [place] [address] Feb, [facility] [place] [facility] [address] [id number] [place] [address] Feb, [facility] [place] [facility] [address] [id number] [place] [address] Jan, [facility] [place] [facility] [address] [id number] [place] [address] Jan, [facility] [place] [facility] [address] [id number] [place] [address] Jan, [facility] [place] [facility] [address] [id number] [place] [address]- 59[address] Jan, [facility] [place] [facility] [address] [id number] [place] [address] 8[address] Jan, [facility] [place] [facility] [address] [id number] [place] [address] 1824 Jan, [facility] [place] [facility] [address] [id number] [place] [address]- 16[address] Jan, [facility] [place] [facility] [address] [id number] [place] [address]- 98[address] Jan, [facility] [place] [facility] [address] [id number] [place] [address]- 5[address] Jan, [facility] [place] [facility] [address] [id number] [place] [address]- 1575 Jan, [facility] [place] [facility] [address] [id number] [place] [address]- 44[address] Dec, [facility] [place] [facility] [address] [id number] [place] [address]- 4485 Dec, [facility] [place] [facility] [address] [id number] [place] [address]- 5010 Dec, [facility] [place] [facility] [address] [id number] [place] [address]- 3149 Dec, [facility] [place] [facility] [address] [id number] [place] [address]- 3519 Dec, [facility] [place] [facility] [address] [id number] [place] [address]- 5302 Dec, [facility] [place] [facility] [address] [id number] [place] [address]- 4383 Dec, [facility] [place] [facility] [address] [id number] [place] [address]- 7556 Dec, [facility] [place] [facility] [address] [id number] [place] [address]- 6917 Dec, [facility] [place] [facility] [address] [id number] [place] [address]- 6437 Dec, [facility] [place] [facility] [address] [id number] [place] [address]- 2898 Dec, [facility] [place] [facility] [address] [id number] [place] [address]- 7127 Dec, [facility] [place] [facility] [address] [id number] [place] [address]- 9445 Dec, [facility] [place] [facility] [address] [id number] [place] [address]- 1691 Dec, [facility] [place] [facility] [address] [id number] [place] [address]- 7916 Dec, [facility] [place] [facility] [address] [id number] [address] 30 Nov, 2013 [facility] [place] [facility] [address] [id number], [place] [address] 8787 30 Nov, 2013 [facility] [place] [facility] [address] [id number] [place] [address]- 4351 Nov, [facility] [place] [facility] [address] [id number] [place] [address]- 1980 Nov, 2013 [facility] [place] [facility] [address] [id number] [place] [address]- 5814 24 Nov, 2013 [facility] [place] [facility] [address] [id number] [place] [address]- 8499 24 Sep, 2013 [facility] [place] [facility] [address] [id number] [place] [address] 2546 23 Sep, 2013 [facility] [place] [facility] [address] [id number] [place] [address] 2546 23 Nov, 2013 [facility] [place] [facility] [address] [id number] [place] [address] 2546 18 Nov, 2013 [facility] [place] [facility] [address] [id number] [place] [address] 2546 18 Nov, 2013 [facility] [place] [facility] [address] [id number] [place] [address]- 4263 17 Nov, 2013 [facility] [place] [facility] [address] [id number] [place] [address] 2542 17 Nov, 2013 [facility] [place] [facility] [address] [id number] [place] [address]- 5534 11 Nov, 2013 [facility] [place] [facility] [address] [id number] [place] [address] 254 11 Nov, 2013 [facility] [place] [facility] [address] [id number] [place] [address]- 3722 10 Nov, 2013 [facility] [place] [facility] [address] [id number] [place] [address]- 2545 10 Nov, 2013 [facility] [place] [facility] [address] [id number] [place] [address] 2543 08 Nov, 2013 [facility] [place] [facility] [address] [id number] [place] [address]- 2545 08 Nov, 2013 [facility] [place] [facility] [address] [id number] [place] [address]- 6859 22 Sep, 2013 [facility] [place] [facility] [address] [id number] [place] [address]- 2125 Sep, 2013 [facility] [place] [facility] [address] [id number] [place] [address]- 6335 11 Sep, 2013 [facility] [place] [facility] [address] [id number] [place] [address]- 7407 Sep, [facility] [place] [facility] [address] [id number] [place] [address]- 7891 Sep, [facility] [place] [facility] [address] [id number] [place] [address]- 9208 Sep, [facility] [place] [facility] [address] [id number] [place] [address]- 1973 Aug, [facility] [place] [facility] [address] [id number] [place] [address]- 3630 Aug, [facility] [place] [facility] [address] [id number] [place] [address]- 8301 Aug, [facility] [place] [facility] [address] [id number] [place] [address]- 8334 Aug, [facility] [place] [facility] [address] [id number] [place] [address]- 2877 Aug, [facility] [place] [facility] [address] [id number] [place] [address]- 0214 Aug, [facility] [place] [facility] [address] [id number] [place] [address]- 7064 Aug, [facility] [place] [facility] [address] [id number] [place] [address]- 0801 Aug, [facility] [place] [facility] [address] [id number] [place] [address]- 9094 Aug, [facility] [place] [facility] [address] [id number] [place] [address]- 2083 Aug, [facility] [place] [facility] [address] [id number] [place] [address]- 7934 Aug, [facility] [place] [facility] [address] [id number] [place] [address]- 9611 July, [facility] [place] [facility] [address] [id number] [place] [address]- 8584 July, [facility] [place] [facility] [address] [id number] [place] [address]- 9372 Jun, [facility] [place] [facility] [address] [id number] [place] [address]- 5432 Jun, [facility] [place] [facility] [address] [id number] [place] [address]- 4906 Jun, [facility] [place] [facility] [address] [id number] [place] [address]- 2284 Jun, [facility] [place] [facility] [address] [id number] [place] [address]- 6352 Jun, [facility] [place] [facility] [address] [id number] [place] [address]- 2278 Jun, [facility] [place] [facility] [address] [id number] [place] [address]- 4665 Jun, [facility] [place] [facility] [address] [id number] [place] [address]- 1116 Jun, [facility] [place] [facility] [address] [id number] [place] [address]- 5044 Jun, [facility] [place] [facility] [address] [id number] [place] [address]- 7881 Jun, [facility] [place] [facility] [address] [id number] [place] [address]- 4102 Jun, [facility] [place] [facility] [address] [id number] [place] [address]- 7854 Jun, [facility] [place] [facility] [address] [id number] [place] [address]- 4464 May, [facility] [place] [facility] [address] [id number] [place] [address]- 8199 May, [facility] [place] [facility] [address] [id number] [place] [address]- 4939 May, [facility] [place] [facility] [address] [id number] [place] [address]- 2889 May, [facility] [place] [facility] [address] [id number] [place] [address]- 2522 May, [facility] [place] [facility] [address] [id number] [place] [address]- 2981 May, [facility] [place] [facility] [address] [id number] [place] [address]- 7653 May, [facility] [place] [facility] [address] [id number] [place] [address]- 4142 May, [facility] [place] [facility] [address] [id number] [place] [address]- 1519 May, [facility] [place] [facility] [address] [id number] [place] [address]- 1039 May, [facility] [place] [facility] [address] [id number] [place] [address]- 4236 May, [facility] [place] [facility] [address] [id number] [place] [address]- 7013 May, [facility] [place] [facility] [address] [id number] [place] [address]- 4925 Apr, [facility] [place] [facility] [address] [facility] [id number] [place] [address]- 4124 Apr, [facility] [place] [facility] [address] [id number] [place] [address]- 7061 Apr, [facility] [place] [facility] [address] [id number] [place] [address]- 8399 Apr, [facility] [place] [facility] [address] [id number] [place] [address]- 9183 Apr, [facility] [place] [facility] [address] [id number] [place] [address]- 1390 Apr, [facility] [place] [facility] [address] [id number] [place] [address]- 6504 Apr, [facility] [place] [facility] [address] [id number] [place] [address]- 1706 Apr, [facility] [place] [facility] [address] [id number] [place] [address]- 0816 Apr, [facility] [place] [facility] [address] [facility] [id number] [place] [address]- 9756 Apr, [facility] [place] [facility] [address] [id number] [place] [address]- 4864 Apr, [facility] [place] [facility] [address] [id number] [place] [address]- 7742 Apr, [facility] [place] [facility] [address] [facility] [id number] [place] [address]- 1269 Apr, [facility] [place] [facility] [address] [facility] [id number] [place] [address]- 0876 Apr, [facility] [place] [facility] [address] [facility] [id number] [place] [address]- 5237 Apr, [facility] [place] [facility] [address] [facility] [id number] [place] [address]- 4702 Apr, [facility] [place] [facility] [address] [facility] [id number] [place] [address]- 6790 Apr, [facility] [place] [facility] [address] [facility] [id number] [place] [address]- 1480 Jan, [facility] [place] [facility] [address] [facility] [id number], [place] [address]- 9660 Jan, [facility] [place] [facility] [address] [facility] [id number] [place] [address]- 5808 Jan, [facility] [place] [facility] [address] [facility] [id number], [place] [address]- 3739 Jan, [facility] [place] [facility] [address] [facility] [id number], [place] [address]- 7318 Jan, [facility] [place] [facility] [address] [id number] [place] [address]- 9900 Jan, [facility] [place] [facility] [address] [id number] [place] [address]- 9018 Jan, [facility] [place] [facility] [address] [id number] [place] [address]- 0651 Dec, [facility] [place] [facility] [address] [id number] [place] [address]- 4011 Dec, [facility] [place] [facility] [address] [id number] [place] [address]- 6425 Dec, [facility] [place] [facility] [address] [id number] [place] [address]- 2974 Nov, [facility] [place] [facility] [address] [id number] [place] [address]- 8381 Nov, [facility] [place] [facility] [address] [id number] [place] [address]- 9564 05 Nov, 2012 [facility] [place] [facility] [address] [id number] [place] [address]- 9117 Nov, [facility] [place] [facility] [address] [id number] [place] [address]- 3647 Oct, [facility] [place] [facility] [address] [id number] [place] [address]- 5162 Oct, [facility] [place] [facility] [address] [id number] [place] [address]- 5988 Oct, [facility] [place] [facility] [address] [id number] [place] [address]- 8738 Oct, [facility] [place] [facility] [address] [id number] [place] [address]- 7211 Oct, [facility] [place] [facility] [address] [id number] [place] [address]- 3632 Sep, [facility] [place] [facility] [address] [id number] [place] [address]- 0146 Sep, [facility] [address] [id number] [place] [address]- 5650 Sep, [facility] [place] [facility] [address] [id number] [place] [address]- 3622 Sep, [facility] [place] [facility] [address] [id number] [place] [address]- 4809 Sep, [facility] [place] [facility] [address] [id number] [place] [address]- 8441 Sep, [facility] [place] [facility] [address] [id number] [place] [address]- 9772 Sep, [facility] [place] [facility] [address] [id number] [place] [address]- 6550 Aug, [facility] [place] [facility] [address] [id number] [place] [address]- 6815 Aug, [facility] [place] [facility] [address] [id number] [place] [address]- 1130 July, [facility] [place] [facility] [address] [id number] [place] [address]- 1153 Jun, [facility] [place] [facility] [address] [id number] [place] [address]- 7609 Jun, [facility] [place] [facility] [address] [id number] [place] [address]- 9725 Jun, [facility] [place] [facility] [address] [id number] [place] [address]- 7371 Apr, [facility] [place] [facility] [address] [id number] [place] [address]276 Apr, [facility] [place] [facility] [address] [id number] [place]75 Apr, [facility] [place] [facility] [address] [id number] [place] [address]- 6023 Mar, [facility] [place] [facility] [address] [id number] [place] [address]- 9848 24 Mar, 2012 [facility] [place] [facility] [address] [id number] [place] [address]- 3725 2012 [facility] [place] [facility] [address] [id number] [place] [address]- 0538 09 Mar, 2012 [facility] [place] [facility] [address] [id number] [place] [address]- 4051 Mar, [facility] [place] [facility] [address] [id number] [place] [address]- 6072 14 Feb, 2012 [facility] [place] [facility] [address] [id number] [place] [address]- 1528 14 Feb, 2012 [facility] [place] [facility] [address] [id number] [place] [address]- 4818 Jan, [facility] [place] [facility] [address] [id number] [place] [address]- 0910 Jan, [facility] [place] [facility] [address] [id number] [place] [address]- 1859 Jan, [facility] [place] [facility] [address] [id number] [place] [address]- 2032 Jan, [facility] [place] [facility] [address] [facility] [id number] [place] [address]- 0616 Jan, [facility] [place] [facility] [address] [id number] [place] [address]- 3676 Jan, [facility] [place] [facility] [address] [id number] [place] [address]- 1964 Jan, [facility] [place] [facility] [address] [id number] [place] [address]- 7021 Dec, [facility] [place] [facility] [address] [id number] [place] [address]- 6461 Dec, [facility] [place] [facility] [address] [id number] [place] [address]- 2145 Dec, [facility] [place] [facility] [address] [id number] [place] [address]- 9074 Dec, [facility] [place] [facility] [address] [id number] [place] [address]- 6015 Dec, [facility] [place] [facility] [address] [id number] [place] [address]- 9928 Dec, [facility] [place] [facility] [address] [id number] [place] [address]- 7271 Dec, [facility] [place] [facility] [address] [id number] [place] [address]- 5587 Dec, [facility] [place] [facility] [address] [id number] [place] [address]- 3963 Dec, [facility] [place] [facility] [address] [id number] [place] [address]- 9490 Dec, [facility] [place] [facility] [address] [id number] [place] [address]- 9760 Oct, [facility] [place] [facility] [address] [id number] [place] [address]- 6767 Oct, [facility] [place] [facility] [address] [id number], [place] [address]- 1166 Aug, [facility] [place] [facility] [address] [id number], [place] [address]- 2312 Aug, [facility] [place] [facility] [address] [id number], [place] [address]- 4927 July, [facility] [place] [facility] [address] [id number] [place] [address]- 9558 Jun, [facility] [place] [facility] [address] [id number], [place] [address]- 5025 Jun, [facility] [place] [facility] [address] [id number] [place] [address]- 2393 May, [facility] [place] [facility] [address] [id number] [place] [address]- 3830 Apr, [facility] [address] [id number] [place] [address]- 8336 Apr, [facility] [place] [facility] [address] [id number] [place] [address] 2546 Mar, [facility] [address] [id number] [place] [address]- 1896 Mar, [facility] [address] [id number] [place] [address] 2543 19 Feb, 2011 [facility] [address] [id number] [place] [address]- 7536 15 Feb, 2011 [facility] [address] [id number] [place] [address]- 0075 13 Feb, 2011 [facility] [address] [id number] [place] [address]- 8944 13 Feb, 2011 [facility] [address] [id number] [place] [address]- 4982 Jan, [facility] [address] [id number] [place] [address]- 5842 17 Dec, 2010 [facility] [address] [facility] [id number] [place] [address]- 1882 08 Feb, 2010 [facility] [place] [facility] [address] [id number] [place] [address] 2546 Feb, [facility] [place] [facility] [address] [id number] [place] [address]- 2540 Feb, [facility] [place] [facility] [address] [id number] [place] [address] 2545 Feb, [facility] [place] [facility] [address] [id number] [place] [address]- 2546 15 Dec, 2009 [facility] [place] [facility] [address] [id number] [place] [address]- 2299 Dec, [facility] [address] [facility] [id number], [place] [address]- 3500 Oct, [facility] [address] [facility] [id number], [place] [address]- 1796 Jun, [facility] [address] [facility] [id number], [place] [address]- 8636 Feb, [facility] [address] [id number], [place] [address]- 2406 Feb, [facility] [address] [facility] [id number], [place] [address]- 9545 Feb, [facility] [address] [facility] [id number], [place] [address]- 2584 Dec, IMMUNIZATIONS No Known Immunizations SOCIAL HISTORY Never Assessed REASON FOR VISIT EMR-[facility] PLAN OF CARE VITAL SIGNS MEDICATIONS Medication Instructions Dosage Frequency Start Date End Date Duration Status Flagyl 500 mg 1 tablet by Oral route 2 times per day for 7 days Take with food and avoid alcohol. Oct, Active Hydrochlorothiazide 50 mg 1 tablet by Oral route 1 time per day July Active Coumadin 1 mg 1 tablet by Oral route 1 time per day Take daily with 5mg to =6mg Feb, Active Coumadin 5 mg 1 tablet by Oral route 1 time per day Take daily with 1mg tabs to=6 mg daily May, Active Augmentin 875-125 mg 1 tablet by Oral route 2 times per day for 7 day(s) Jun, Active Bactrim DS 800-160 mg 1 tablet by Oral route 2 times per day for 10 day(s) Jan, Active RESULTS No Results PROCEDURES No Known procedures [...]
--- OUTSIDE RECORDS SUMMARY | 2018-08-02 08:43 | XMS REPORT ---
Author Author KIANA ASHLEY [facility] Address [address] [place] [address] Care Team Providers Care Carpenters Supervisor Name Role Phone KIANAGILSON VILLEGASHANY Unavailable PROBLEMS Type Condition ICD9-CM Code [id number] Code Onset Dates Condition Status SNOMED Code Problem Presence of IVC filter Z95.828 Active 970161255 Problem Pelvic pain R10.2 Active 81540461 Problem 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 Active 667498669 Problem Obstructive sleep apnea G47.33 Active 48396110 Problem Morbid obesity E66.01 Active 149690781 Problem Excessive daytime sleepiness G47.19 Active 185802712675 Problem Peripheral edema R60.9 Active 922838710 Problem Thyroid nodule E04.1 Active 786817869 Problem Gastroesophageal reflux disease, esophagitis presence not specified K21.9 Active 168710222 Problem History of DVT (deep vein thrombosis) Z86.718 Active 265154736 Problem Hypertriglyceridemia E78.1 Active 291460229 Problem 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 Active 669954040 Problem Factor V Leiden D68.51 Active 380933247 Problem Generalized anxiety disorder F41.1 Active 908641737 ALLERGIES No Information ENCOUNTERS Encounter Location Date Diagnosis [facility] [address], [place] [address] Feb, [facility] [id number] [place] [address] 07655 -3945 Jan, Acute bacterial conjunctivitis H10.30 [facility] [address] [place] [address] 71396- 9885 Dec, [facility] [address], [place] [address] Dec, [facility] [id number] [place] [address] 67379- 7354 17 Nov, 2017 [place] [id number] [place] [address] 43246- 5983 07 Nov, 2017 Obstructive sleep apnea G47.33 ; Morbid obesity E66.01 and Gastroesophageal reflux disease, esophagitis presence not specified K21.9 [facility] [address] [id number] 06 Nov, 2017 Encounter for examination of eyes and vision without abnormal findings Z01.00 [place] [id number] [place] [address] 06788- 0639 31 Oct, 2017 Thyroid nodule E04.1 and Screening for breast cancer Z12.31 [place] [id number] [place] [address] 59901- 0092 23 Oct, 2017 History of DVT (deep vein thrombosis) Z86.718 ; Thyroid nodule E04.1 and Gastroesophageal reflux disease, esophagitis presence not specified K21.9 [place] [id number] [place] [address] 68032- 7598 10 Oct, 2017 [place] [id number] [place] [address] 43455- 2635 Sep, [place] [id number] [place] [address] 74401- 8188 Aug, [place] [id number] [place] [address] 15867- 0171 Aug, [place] [id number] [place] [address] 77910- 7867 Aug, Acute pain of left shoulder M25.512 and Thyroid nodule E04.1 [place] [id number] [place] [address] 72217- 3598 July, Superior glenoid labrum lesion of left shoulder, subsequent encounter S43.432D [place] [id number] [place] [address] 31625- 9110 Jun, History of DVT (deep vein thrombosis) Z86.718 [facility] [address], [place] [address] Jun, History of DVT (deep vein thrombosis) Z86.718 [facility] [address] [place] [address] 22461- 8242 Jun, Impingement syndrome, shoulder, left M75.42 [facility] [id number] [place] [address] 86827- 9493 May, Subacromial bursitis of left shoulder joint M75.52 [place] [id number] [place] [address] 64769- 5845 May, [place] [id number] [place] [address] 78496- 5840 May, Hypertriglyceridemia E78.1 ; [facility] (current) use of anticoagulants Z79.01 and Excessive daytime sleepiness G47.19 [place] [id number] [place] [address] 05484- 8263 May, History of DVT (deep vein thrombosis) Z86.718 ; Generalized anxiety disorder F41.1 ; Hypertriglyceridemia E78.1 ; MCC (current) use of anticoagulants Z79.01 ; Subacromial bursitis of left shoulder joint M75.52 and Excessive daytime sleepiness G47.19 [facility] [address], [place] [address] 5246 May, [place] [id number] [place] [address] 68463- 0946 May, 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 [place] [id number] [place] [address] 00707- 8762 Apr, [facility] (current) use of anticoagulants Z79.01 [place] [address] [place] [address] 76222- 0084 Apr, [facility] (current) use of anticoagulants Z79.01 [place] [address] [place] [address] 2546 Apr, 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 [facility] [id number] [place] [address] 59597 2546 Apr, [facility] [id number] [place] [address] 28662 2546 Apr, [facility] (current) use of anticoagulants Z79.01 [facility] [id number] [place] [address] 63547 2546 13 Apr, 2017 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 [facility] [id number] [place] [address] 35702 2546 Apr, 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 [facility] [id number] [place] [address] 42086 2546 Apr, 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 [facility] [id number] [place] [address] 04199 2546 Apr, [facility] (current) use of anticoagulants Z79.01 [facility] [id number] [place] [address] 32923 2546 Apr, [facility] (current) use of anticoagulants Z79.01 [facility] [id number] [place] [address] 40980 2546 Mar, 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 [facility] [address] [place] [address] 80342 2546 Mar, [facility] [id number] [place] [address] 38918 2546 Mar, 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 [facility] [id number] [place] [address] [id number] Jan, Dental examination Z01.20 [facility] [id number] [id number] Jan, [facility] [id number] [place] [address] 15072- 7036 Jan, [facility] (current) use of anticoagulants Z79.01 [facility] [address] [place] [address] 85369- 2318 Jan, History of DVT (deep vein thrombosis) Z86.718 [facility] [id number] [place] [address] 33845- 6692 Jan, Generalized anxiety disorder F41.1 and Peripheral edema R60.9 [facility] [id number] [place] [address] 36815- 7083 Nov, History of DVT (deep vein thrombosis) Z86.718 [facility] [id number] [place] [address] 69173- 0250 Nov, 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 [facility] [address] [place] [address] 68537 -0458 Nov, Acute non-recurrent maxillary sinusitis J01.00 [facility] [address] [place] [address] 97867- 2821 Oct, [facility] (current) use of anticoagulants Z79.01 [facility] [address] [place] [address] 47557- 5486 Oct, Personal history of venous thrombosis and embolism Z86.718 [facility] [address] [place] [address] 29922- 8540 Sep, [facility] [id number] [place] [address] 63786- 9360 Sep, Personal history of venous thrombosis and embolism Z86.718 [facility] [address] [place] [address] 20874- 0743 Sep, 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 [place] [address] [place] [address] 66019- 7525 Sep, [facility] (current) use of anticoagulants Z79.01 [place] [id number] [place] [address] 83794- 1749 Sep, Generalized anxiety disorder F41.1 and History of DVT (deep vein thrombosis) Z86.718 [place] [id number] [place] [address] 60293- 6589 Aug, History of DVT (deep vein thrombosis) Z86.718 ; Generalized anxiety disorder F41.1 ; MCC (current) use of anticoagulants Z79.01 ; Pelvic pain R10.2 ; Hypertriglyceridemia E78.1 ; Excessive daytime sleepiness G47.19 ; Colon cancer screening Z12.11 ; Screening for breast cancer Z12.39 ; Peripheral edema R60.9 and Gastroesophageal reflux disease, esophagitis presence not specified K21.9 [place] [id number] [place] [address] 20145- 6239 Aug, [place] [id number] [place] [address] 28071- 4323 July, [place] [id number] [place] [address] 55108- 3501 July, History of DVT (deep vein thrombosis) Z86.718 [place] [id number] [place] [address] 97807- 6098 Jun, Generalized anxiety disorder F41.1 [place] [id number] [place] [address] 91509- 8700 Jun, History of DVT (deep vein thrombosis) Z86.718 [place] [id number] [place] [address] 54971- 5504 Jun, History of DVT (deep vein thrombosis) Z86.718 [place] [id number] [place] [address] 93499- 1108 Jun, History of DVT (deep vein thrombosis) Z86.718 [facility] [address] [place] [address] 68931- 3749 Jun, History of DVT (deep vein thrombosis) Z86.718 [facility] [id number] [place] [address] 696843- 9576 May, History of DVT (deep vein thrombosis) Z86.718 [facility] [address] 69659- 6504 May, 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 [facility] [id number] [place] [address] 11130- 9803 May, [facility] (current) use of anticoagulants Z79.01 [place] [id number] [place] [address] 11623- 4277 May, History of DVT (deep vein thrombosis) Z86.718 [facility] [id number] [place] [address] 77656 -8350 Apr, Bacterial conjunctivitis of left eye H10.9 and H/O motion sickness Z87.898 [place] [id number] [place] [address] 88384- 2819 24 Apr, 2016 History of DVT (deep vein thrombosis) Z86.718 [place] [id number] [place] [address] 14512- 2436 Apr, History of DVT (deep vein thrombosis) Z86.718 [place] [id number] [place] [address] 41329- 1176 15 Apr, 2016 History of DVT (deep vein thrombosis) Z86.718 [place] [id number] [place] [address] 46445- 1809 14 Apr, 2016 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 [facility] [id number] [place] [address] 21777- 6891 Mar, [place] [address], [place] [address]- 3791 Mar, [facility] (current) use of anticoagulants Z79.01 [facility] [id number] [place] [address] 14120 2546 Mar, Hypertriglyceridemia E78.1 and MCC (current) use of anticoagulants Z79.01 [place] [id number] [place] [address] 63537- 8226 Feb, [facility] (current) use of anticoagulants Z79.01 [place] [id number] [place] [address] 70965 2546 Feb, 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 [place] [id number] [place] [address] 13168- 1246 Feb, M[facility] (current) use of anticoagulants Z79.01 [place] [id number] [place] [address] 96487- 8534 Dec, [place] [id number] [place] [address] 13258- 9018 Nov, [place] [id number] [place] [address] 06401- 7975 Nov, History of DVT (deep vein thrombosis) Z86.718 ; Tremulousness R25.1 ; Generalized anxiety disorder F41.1 ; Peripheral edema R60.9 and Hypertriglyceridemia E78.1 [place] [address] [place] [address] 16344- 9535 Oct, History of DVT (deep vein thrombosis) Z86.718 [place] [id number] [place] [address] 33948 2546 Oct, [place] [id number] [place] [address] 62571- 2546 Sep, History of DVT (deep vein thrombosis) Z86.718 [place] [id number] [place] [address] 41097- 4512 Sep, 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 [facility] [address] 52648- 7150 July, [facility] [address] 16613- 3028 July, 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 [place] [address] 74629- 2154 July, 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 [place] [address] 35503- 1926 Jun, [facility] (current) use of anticoagulants Z79.01 [facility] [address] 31010 -3150 Jun, Coccyx pain M53.3 ; Encounter for therapeutic drug level monitoring Z51.81 and MCC current use 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.01 [place] [address] 58170- 3228 May, Abnormal mammogram R92.8 [facility] [address] 63180 -9352 May, [facility] [id number] [place] [address] 18985 -6216 May, Acute vaginitis N76.0 and Encounter for other screening for malignant neoplasm of breast Z12.39 [place] [id number] [place] [address] 35957- 1978 Apr, [place] [address] 26725- 8113 Apr, [place] [address] 76531- 8140 Apr, Peripheral edema R60.9 [place] [address] [place] [address] 2546 Apr, MCC (current) use of anticoagulants Z79.01 [place] [id number] [place] [address] 32566 2546 Apr, Peripheral edema R60.9 and MCC (current) use of anticoagulants Z79.01 [place] [id number] [place] [address] 42779 2546 Apr, 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 [place] [id number] [place] [address] 79132 2546 Apr, [place] [id number] [place] [address] 10553 2546 Apr, M[facility] (current) use of anticoagulants Z79.01 [place] [id number] [place] [address] 59061 2546 Apr, Peripheral edema R60.9 [place] [id number] [place] [address] 10484 254 Mar, M[facility] (current) use of anticoagulants Z79.01 [place] [id number] [place] [address] 62783 2546 Mar, [facility] (current) use of anticoagulants Z79.01 and Hypertriglyceridemia E78.1 [place] [id number] [place] [address] 14024 2546 Mar, [facility] (current) use of anticoagulants Z79.01 [place] [address] [place] [address] 16873 2546 Mar, [facility] (current) use of anticoagulants Z79.01 [place] [id number] [place] [address] 37931 2546 Mar, [place] [id number] [place] [address] 13763 2546 Mar, [facility] (current) use of anticoagulants Z79.01 ; Hypertriglyceridemia E78.1 ; Personal history of venous thrombosis and embolism Z86.718 and Lump R22.9 [place] [id number] [place] [address] 09140- 2759 Mar, Personal history of venous thrombosis and embolism Z86.718 [place] [id number] [place] [address] 68925- 3206 Mar, Personal history of venous thrombosis and embolism Z86.718 [place] [id number] [place] [address] 37474- 8671 Mar, [place] [id number] [place] [address] 62452- 0159 Dec, Personal history of venous thrombosis and embolism Z86.718 [place] [id number] [place] [address] 08871- 7197 Dec, Personal history of venous thrombosis and embolism V12.51 [place] [id number] [place] [address] 72863- 7836 Nov, Personal history of venous thrombosis and embolism V12.51 [place] [id number] [place] [address] 25990- 2807 Nov, Personal history of venous thrombosis and embolism V12.51 [place] [id number] [place] [address] 64270- 9377 Nov, Personal history of venous thrombosis and embolism V12.51 [place] [address] [place] [address] 33639- 7268 Nov, Personal history of venous thrombosis and embolism V12.51 [place] [id number] [place] [address] 37356- 4274 Nov, [place] [id number] [place] [address] 78480- 0649 Oct, Dysuria 788.1 [place] [id number] [place] [address] 72065- 2393 Oct, Personal history of venous thrombosis and embolism V12.51 [facility] [address], [place] [address]- 3693 Oct, [facility] [address], [place] [address]- 0506 Oct, Personal history of venous thrombosis and embolism V12.51 [facility] [address] [place] [address] 75494- 3921 Sep, Personal history of venous thrombosis and embolism V12.51 [facility] [address], [place] [address]- 1162 Sep, Personal history of venous thrombosis and embolism V12.51 [facility] [address], [place] [address]- 6089 Aug, Personal history of venous thrombosis and embolism V12.51 [facility] [address], [place] [address]- 3612 Aug, Personal history of venous thrombosis and embolism V12.51 [facility] [address], [place] [address]- 2491 Aug, Personal history of venous thrombosis and embolism V12.51 [facility] [id number], [place] [address]- 6670 July, Generalized anxiety disorder 300.02 ; Abdominal pain, left lower quadrant 789.04 and Personal history of venous thrombosis and embolism V12.51 [facility] [id number], [place] [address]- 3193 Jun, [facility] [address], [place] [address]- 1868 Jun, [facility] [address], [place] [address]- 2908 May, [facility] [address], [place] [address]- 6771 May, [facility] [place] [facility] [address] [id number] [place] [address]- 1265 May, [facility] [place] [facility] [address] [id number] [place] 7242 May, [facility] [place] [facility] [address] [id number] [place] [address]- 7480 May, [facility] [place] [facility] [address] [id number] [place] [address]- 3593 May, [facility] [place] [facility] [address] [id number] [place] [address]- 2961 May, [facility] [place] [facility] [address] [id number] [place] [address]- 0927 May, [facility] [place] [facility] [address] [id number] [place] [address]- 6144 Apr, [facility] [place] [facility] [address] [id number] [place] [address]- 0110 Apr, [facility] [place] [facility] [address] [id number] [place] [address]- 9211 Apr, [facility] [place] [facility] [address] [id number] [place] [address]- 6683 Apr, [facility] [place] [facility] [address] [id number] [place] [address]- 7280 Apr, [facility] [place] [facility] [address] [id number] [address]- 9902 Mar, [facility] [place] [facility] [address] [id number] [place] [address]- 5693 Mar, [facility] [place] [facility] [address] [id number] [place] [address]- 7691 Mar, [facility] [place] [facility] [address] [id number] [place] [address]- 3567 Mar, [facility] [place] [facility] [address] [id number] [place] [address]- 6035 Mar, [facility] [address] [id number] [place] [address]- 1375 Mar, [facility] [place] [facility] [address] [id number] [place] 7588 Feb, [facility] [place] [facility] [address] [id number] [place] [address]- 9615 Feb, [facility] [place] [facility] [address] [id number] [place] [address]- 1492 Feb, [facility] [place] [facility] [address] [id number] [place] 9777 Feb, [facility] [place] [facility] [address] [id number] [place] [address]- 3749 Feb, [facility] [place] [facility] [address] [id number] [place] [address] Feb, [facility] [place] [facility] [address] [id number] [place] [address] Feb, [facility] [place] [facility] [address] [id number] [place] [address] Feb, [facility] [place] [facility] [address] [id number] [place] [address] Feb, [facility] [place] [facility] [address] [id number] [place] [address] Feb, [facility] [place] [facility] [address] [id number] [place] [address] Jan, [facility] [place] [facility] [address] [id number] [place] [address] Jan, [facility] [place] [facility] [address] [id number] [place] [address] Jan, [facility] [place] [facility] [address] [id number] [place] [address] Jan, [facility] [place] [facility] [address] [id number] [place] [address] Jan, [facility] [place] [facility] [address] [id number] [place] [address] Jan, [facility] [place] [facility] [address] [id number] [place] [address] Jan, [facility] [place] [facility] [address] [id number] [place] [address] Jan, [facility] [place] [facility] [address] [id number] [place] [address] Jan, [facility] [place] [facility] [address] [id number] [place] [address] Jan, [facility] [place] [facility] [address] [id number] [place] [address] Dec, [facility] [place] [facility] [address] [id number] [place] [address] Dec, [facility] [place] [facility] [address] [id number] [place] [address] Dec, [facility] [place] [facility] [address] [id number] [place] [address] Dec, [facility] [place] [facility] [address] [id number] [place] [address] Dec, [facility] [place] [facility] [address] [id number] [place] [address] Dec, [facility] [place] [facility] [address] [id number] [place] [address] Dec, [facility] [place] [facility] [address] [id number] [place] [address] Dec, [facility] [place] [facility] [address] [id number] [place] [address] Dec, [facility] [place] [facility] [address] [id number] [place] [address] Dec, [facility] [facility] [address] [id number] [place] [address] Dec, [facility] [place] [facility] [address] [id number] [place] [address] Dec, [facility] [place] [facility] [address] [id number] [place] [address] Dec, [facility] [place] [facility] [address] [id number] [place] [address]68 Dec, [facility] [place] [facility] [address] [id number] [place] [address]683 Dec, [facility] [place] [facility] [address] [id number] [place] [address] 30 Nov, 2013 [facility] [place] [facility] [address] [id number] [place] [address] 1984 30 Nov, 2013 [facility] [place] [facility] [address] [id number] [place] [address]- 48[address] 26 Nov, 2013 [facility] [place] [facility] [address] [id number] [place] [address] 2544 26 Nov, 2013 [facility] [place] [facility] [address] [id number] [place] [address]- 2540 24 Nov, 2013 [facility] [place] [facility] [address] [id number], [place] [address] 24 Nov, 2013 [facility] [address] [id number], [place] [address]- 2540 23 Nov, 2013 [facility] [place] [facility] [address] [id number] [place] [address] 2543 23 Nov, 2013 [facility] [place] [facility] [address] [id number] [place] [address]- 2543 18 Nov, 2013 [facility] [place] [facility] [address] [id number] [place] [address]- 2542 18 Nov, 2013 [facility] [place] [facility] [address] [id number] [place] [address]- 1598 17 Nov, 2013 [facility] [place] [facility] [address] [id number] [place] [address]- 3066 17 Nov, 2013 [facility] [place] [facility] [address] [id number] [place] [address]- 2546 11 Nov, 2013 [facility] [place] [facility] [address] [id number] [place] [address]- 4206 11 Nov, 2013 [facility] [place] [facility] [address] [id number] [place] [address]- 2543 10 Nov, 2013 [facility] [place] [facility] [address] [id number] [place] [address]- 5266 10 Nov, 2013 [facility] [place] [facility] [address] [id number] [place] [address]- 0857 08 Nov, 2013 [facility] [place] [facility] [address] [id number] [place] [address]- 2875 08 Nov, 2013 [facility] [place] [address] [id number] [place] [address]- 8838 Sep, [facility] [place] [facility] [address] [id number] [place] [address]- 5653 Sep, 2013 [facility] [address] [id number] [place] [address]- 0094 Sep, [facility] [address] [id number] [place] [address]- 8876 Sep, [facility] [place] [facility] [address] [id number] [place] [address]- 2477 Sep, [facility] [place] [facility] [address] [id number] [place] [address]- 6460 Sep, [facility] [place] [facility] [address] [id number] [place] [address]- 1444 Aug, [facility] [place] [facility] [address] [id number] [place] [address]- 3197 Aug, [facility] [place] [facility] [address] [id number] [place] [address]- 3487 Aug, [facility] [place] [address] [id number] [place] [address]- 5394 Aug, [facility] [place] [facility] [address] [id number] [place] [address]- 6304 Aug, [facility] [address] [id number] [place] [address]- 7487 Aug, [facility] [address] [id number] [place] [address]- 9233 Aug, [facility] [place] [facility] [address] [id number] [place] [address]- 2673 Aug, [facility] [address] [id number] [place] [address]- 6525 Aug, [facility] [address] [id number] [place] [address]- 2964 Aug, [facility] [address] [id number] [place] [address]- 4326 Aug, [facility] [facility] [address] [id number] [place] [address]- 8153 July, [facility] [address] [id number] [place] [address]- 7665 July, [facility] [address] [id number] [place] [address]- 1153 Jun, [facility] [address] [id number] [place] [address]- 2506 Jun, [facility] [address] [id number] [place] [address]- 6679 Jun, [facility] [address] [id number] [place] [address]- 8813 Jun, [facility] [address] [id number] [place] [address]- 1232 18 Jun, 2013 [facility] [address] [id number] [place] [address]- 5916 18 Jun, 2013 [facility] [address] [id number] [place] [address]- 1638 15 Jun, 2013 [facility] [address] [id number] [place] [address]- 5116 15 Jun, 2013 [facility] [address] [id number] [place] [address]- 4796 11 Jun, 2013 [facility] [address] [id number] [place] [address]- 5847 11 Jun, 2013 [facility] [address] [id number] [place] [address]- 0480 Jun, [facility] [address] [id number] [place] [address]- 4773 Jun, [facility] [address] [id number] [place] [address] May, [facility] [address] [id number] [place] [address]- 1643 May, [facility] [address] [id number] [place] [address]- 4936 May, [facility] [address] [id number] [place] [address]- 0246 May, [facility] [address] [id number] [place] [address]- 3736 May, [facility] [address] [id number] [place] [address]- 4394 May, [facility] [address] [id number] [place] [address]- 9587 May, [facility] [address] [id number] [place] [address]- 9373 May, [facility] [address] [id number] [place] [address]- 7155 May, [facility] [address] [id number] [place] [address]- 6513 May, [facility] [address] [id number] [place] [address]- 0388 May, [facility] [address] [id number] [place] [address]- 1812 May, [facility] [address] [id number] [place] [address]- 6330 Apr, [facility] [address] [id number] [place] [address]- 8691 Apr, [facility] [address] [id number] [place] [address]- 3147 Apr, [facility] [address] [id number] [place] [address]- 8495 Apr, [facility] [address] [id number] [place] [address]- 5359 Apr, [facility] [address] [id number] [place] [address]- 8921 Apr, [facility] [address] [id number] [place] [address]- 0861 Apr, [facility] [address] [id number] [place] [address]- 0757 Apr, [facility] [address] [id number] [place] [address]- 0257 Apr, [facility] [address] [id number] [place] [address]- 0720 Apr, [facility] [address] [id number] [place] [address]- 8467 Apr, [facility] [address] [id number] [place] [address]- 1132 Apr, 2013 [facility] [address] [id number] [place] [address]- 7476 Apr, 2013 [facility] [address] [id number] [place] [address]- 4126 Apr, 2013 [facility] [address] [id number] [place] [address]- 4796 Apr, 2013 [facility] [address] [id number] [place] [address]- 2067 Apr, 2013 [facility] [address] [id number] [place] [address]- 3036 Apr, [facility] [address] [facility] [id number] [place] [address]- 8065 Jan, [facility] [address] [id number] [place] [address]- 1936 Jan, [facility] [address] [id number] [place] [address]- 0101 Jan, [facility] [address] [facility] [id number] [place] [address]- 8798 Jan, [facility] [address] [facility] [id number] [place] [address]- 0685 Jan, [facility] [address] [id number] [place] [address]- 7824 Jan, [facility] [address] [id number] [place] [address]- 0645 Jan, [facility] [address] [id number] [place] [address]- 0984 Dec, [facility] [address] [id number] [place] [address]- 1326 Dec, [facility] [address] [id number] [place] [address]- 7923 Dec, [facility] [address] [id number] [place] [address]- 2182 Nov, [facility] [address] [id number] [place] [address]- 2141 Nov, [facility] [address] [id number] [place] [address]- 8843 Nov, [facility] [address] [id number] [place] [address]- 6966 Nov, [facility] [address] [id number] [place] [address]- 9229 Oct, [facility] [address] [id number] [place] [address]- 1283 Oct, [facility] [address] [id number] [place] [address]- 8557 Oct, [facility] [address] [id number] [place] [address]- 4694 Oct, [facility] [address] [id number] [place] [address]- 1554 Oct, [facility] [address] [id number] [place] [address]- 6110 Sep, [facility] [address] [id number] [place] [address]- 1445 Sep, [facility] [address] [id number] [place] [address]- 3835 Sep, [facility] [address] [id number] [place] [address]- 3251 Sep, [facility] [address] [id number] [place] [address]- 5228 Sep, [facility] [address] [id number] [place] [address]- 3237 Sep, [facility] [address] [id number] [place] [address]- 4747 Sep, [facility] [address] [id number] [place] [address]- 6819 Aug, [facility] [address] [id number] [place] [address]- 8931 Aug, [facility] [address] [id number] [place] [address]- 3580 July, [facility] [address] [id number] [place] [address]- 3101 Jun, [facility] [address] [id number] [place] [address]- 7956 Jun, [facility] [address] [id number] [place] [address]- 1326 Jun, [facility] [address] [id number] [place] [address]- 0866 Apr, [facility] [address] [id number] [place] [address]- 2261 Apr, [facility] [address] [id number] [place] [address]- 1926 Apr, [facility] [address] [id number] [place] [address]- 0985 Mar, [facility] [address] [id number] [place] [address]- 0248 Mar, [facility] [address] [id number] [place] [address]- 3830 2012 [facility] [address] [id number] [place] [address]- 3267 Mar, [facility] [address] [id number] [place] [address]- 5826 Mar, [facility] [address] [id number] [place] [address]- 1399 14 Feb, 2012 [facility] [address] [id number] [place] [address]- 0992 14 Feb, 2012 [facility] [address] [id number] [place] [address]- 0796 13 Jan, 2012 [facility] [address] [id number] [place] [address]- 7513 13 Jan, 2012 [facility] [address] [id number] [place] [address], [place] [address]- 8306 13 Jan, 2012 [facility] [address] [id number] [place] [address]- 1909 13 Jan, 2012 [facility] [address] [id number] [place] [address]- 5200 Jan, [facility] [address] [id number] [place] [address]- 3184 Jan, [facility] [address] [id number] [place] [address]- 3006 Jan, [facility] [address] [id number] [place] [address]- 8978 Dec, [facility] [place] [facility] [address] [id number] [place] [address]- 7124 Dec, [facility] [address] [id number] [place] [address]- 1505 30 Dec, 2011 [facility] [address] [id number], [place] [address] 30 Dec, 2011 [facility] [facility] [address] [id number] [place] [address]- 1635 Dec, [facility] [facility] [address] [id number] [place] [address]- 6019 30 Dec, 2011 [facility] [place] [facility] [address] [id number] [place] [address]- 3522 30 Dec, 2011 [facility] [facility] [address] [id number], [place] [address]- 2230 Dec, [facility] [address] [id number] [place] [address]- 0405 Dec, [facility] [facility] [address] [id number] [place] [address]- 2483 Dec, [facility] [place] [facility] [address] [id number] [place] [address]- 0461 Oct, [facility] [place] [facility] [address] [id number] [place] [address]- 8552 Oct, [facility] [place] [facility] [address] [id number] [place] [address]- 1206 Aug, [facility] [place] [facility] [address] [id number] [place] [address]- 7216 Aug, [facility] [address] [facility] [id number] [place] [address]- 2557 July, [facility] [place] [facility] [address] [id number] [place] [address]- 8727 Jun, [facility] [place] [facility] [address] [id number] [place] [address]- 4083 Jun, [facility] [place] [facility] [address] [id number] [place] [address]- 3834 May, [facility] [place] [facility] [address] [id number], [place] [address]- 3470 Apr, [facility] [place] [facility] [address] [id number] [place] [address]- 0693 Apr, [facility] [place] [facility] [address] [id number] [place] [address]- 6032 Mar, [facility] [place] [facility] [address] [id number] [place] [address]- 8618 Mar, [facility] [place] [facility] [address] [id number] [place] [address]- 1026 Feb, [facility] [place] [facility] [address] [id number] [place] [address]- 4064 15 Feb, 2011 [facility] [address] [id number] [place] [address]- 5286 13 Feb, 2011 [facility] [place] [facility] [address] [id number] [place] [address]- 8846 13 Feb, 2011 [facility] [place] [facility] [address] [id number] [place] [address]- 4478 11 Jan, 2011 [facility] [place] [facility] [address] [id number] [place] [address]- 7830 17 Dec, 2010 [facility] [address] [id number] [place] [address]- 7161 08 Feb, 2010 [facility] [place] [facility] [address] [id number] [place] [address]- 8900 02 Feb, 2010 [facility] [place] [facility] [address] [id number] [place] [address]- 9255 Feb, [facility] [place] [facility] [address] [id number] [place] [address]187 Feb, [facility] [place] [facility] [address] [id number] [place] [address]- 8025 15 Dec, 2009 [facility] [place] [facility] [address] [facility] [id number] [place] [address]10 15 Dec, 2009 [facility] [place] [facility] [address] [id number] [place] [address]- 1449 Oct, [facility] [place] [facility] [address] [id number] [place] [address]- 5183 15 Jun, 2009 [facility] [place] [facility] [address] [id number] [place] [address]- 8906 Feb, [facility] [place] [facility] [address] [id number] [place] [address]- 0936 18 Feb, 2008 [facility] [place] [facility] [address] [id number] [place] [address]- 0813 Feb, [facility] [address] [facility] [id number] [place] [address]- 5822 Dec, IMMUNIZATIONS No Known Immunizations SOCIAL HISTORY Never Assessed REASON FOR VISIT Dental Surgery-Xarelto PLAN OF CARE VITAL SIGNS MEDICATIONS Unknown Medications RESULTS No Results PROCEDURES No Known procedures INSTRUCTIONS MEDICATIONS ADMINISTERED No Known Medications MEDICAL (GENERAL) HISTORY Type Description Date Medical History obesity Medical History Hematologic disorder factor clotting problem Medical History DVT's Medical History Torn Rotator Cuff, repaired 09/23/17 Surgical History Lap Band 10/2012 Surgical History section 1985, 1987 Surgical History cholecystectomy Surgical History [place] Filter 06/2009 Surgical History Left leg exploratory surgery r/t clot 1987 Surgical History left shoulder surgery 09/14/17 Surgical History lap band removed 12/2017 Hospitalization History Ruptured Ovarian Cyst with abd bleeding 11/2009
--- OUTSIDE RECORDS SUMMARY | 2018-08-02 08:44 | XMS REPORT ---
Author Author JOSE DAVID ORELLANA [facility] Address [address] [place] [address] Care Team Providers Care Drum Handler Name Role Phone SCOTTY ORELLANATA Unavailable PROBLEMS Type Condition ICD9-CM Code [id number] Code Onset Dates Condition Status SNOMED Code Problem Presence of IVC filter Z95.828 Active 686635404 Problem Pelvic pain R10.2 Active 49779990 Problem 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 Active 202736619 Problem Obstructive sleep apnea G47.33 Active 02845500 Problem Morbid obesity E66.01 Active 529723881 Problem Excessive daytime sleepiness G47.19 Active 701631818745 Problem Peripheral edema R60.9 Active 243699386 Problem Thyroid nodule E04.1 Active 178181076 Problem Gastroesophageal reflux disease, esophagitis presence not specified K21.9 Active 920161190 Problem History of DVT (deep vein thrombosis) Z86.718 Active 950231033 Problem Hypertriglyceridemia E78.1 Active 789226984 Problem 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 Active 761631608 Problem Factor V Leiden D68.51 Active 416992247 Problem Generalized anxiety disorder F41.1 Active 840283115 ALLERGIES No Known Allergies ENCOUNTERS Encounter Location Date Diagnosis [facility] [id number] [address] Jan, Acute bacterial conjunctivitis H10.30 [facility] [id number], [place] [address] Dec, [facility] [address], [place] [address] Dec, [facility] [id number], [place] [address] Nov, [facility] [id number] [place] [address] 47271- 7849 07 Nov, 2017 Obstructive sleep apnea G47.33 ; Morbid obesity E66.01 and Gastroesophageal reflux disease, esophagitis presence not specified K21.9 [facility] [address] [id number] 06 Nov, 2017 Encounter for examination of eyes and vision without abnormal findings Z01.00 [place] [id number] [place] [address] 72303- 3972 31 Oct, 2017 Thyroid nodule E04.1 and Screening for breast cancer Z12.31 [facility] [id number] [place] [address] 03456- 5316 Oct, History of DVT (deep vein thrombosis) Z86.718 ; Thyroid nodule E04.1 and Gastroesophageal reflux disease, esophagitis presence not specified K21.9 [facility] [id number] [place] [address] 41722- 9151 Oct, [facility] [id number] [place] [address] 85485- 8597 Sep, [facility] [id number] [place] [address] 43529- 3254 Aug, [facility] [id number] [place] [address] 58585- 2355 Aug, [facility] [id number] [place] [address] 53402- 4489 Aug, Acute pain of left shoulder M25.512 and Thyroid nodule E04.1 [facility] [address] [place] [address] 89333- 9697 July, Superior glenoid labrum lesion of left shoulder, subsequent encounter S43.432D [facility] [id number] [place] [address] 55863- 0004 Jun, History of DVT (deep vein thrombosis) Z86.718 [facility] [id number] [place] [address] 46449- 8484 Jun, History of DVT (deep vein thrombosis) Z86.718 [place] [address], [place] [address] Jun, Impingement syndrome, shoulder, left M75.42 [facility] [id number] [place] [address] 19619- 7216 May, Subacromial bursitis of left shoulder joint M75.52 [facility] [id number] [place] [address] 28638- 9882 May, [facility] [id number] [place] [address] 82305- 4585 May, Hypertriglyceridemia E78.1 ; half-way (current) use of anticoagulants Z79.01 and Excessive daytime sleepiness G47.19 [facility] [id number] [place] [address] 37443- 8260 May, History of DVT (deep vein thrombosis) Z86.718 ; Generalized anxiety disorder F41.1 ; Hypertriglyceridemia E78.1 ; half-way (current) use of anticoagulants Z79.01 ; Subacromial bursitis of left shoulder joint M75.52 and Excessive daytime sleepiness G47.19 [place] [address] [place] [address] 60606- 8662 May, [place] [id number] [place] [address] 29565- 1456 May, half-way (current) use of anticoagulants Z79.01 [place] [address] [place] [address] 79558- 4656 Apr, half-way (current) use of anticoagulants Z79.01 [facility] [facility] [id number] [place] [address] 82575- 2061 Apr, half-way (current) use of anticoagulants Z79.01 [facility] [facility] [address], [place] [address] 3010 Apr, half-way (current) use of anticoagulants Z79.01 [facility] [id number] [place] [address] 40104 2546 16 Apr, 2017 [facility] [id number] [place] [address] 97231 2546 16 Apr, 2017 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 [facility] [id number] [place] [address] 89174 2546 13 Apr, 2017 half-way (current) use of anticoagulants Z79.01 [facility] [id number] [place] [address] 27826 2546 Apr, 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 [facility] [id number] [place] [address] 73879 2546 Apr, half-way (current) use of anticoagulants Z79.01 [facility] [id number] [place] [address] 58347 2546 Apr, 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 [facility] [id number] [place] [address] 47938 2546 Apr, half-way (current) use of anticoagulants Z79.01 [facility] [id number] [place] [address] 74977 2546 Mar, 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 [facility] [id number] [place] [address] 67100 2546 Mar, [facility] [id number] [place] [address] 30407 2546 Mar, 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 [facility] [id number] [place] [address] [id number] Jan, Dental examination Z01.20 [facility] [id number] [place] [address] [id number] Jan, [facility] [address] [place] [address] 4954 Jan, 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 [facility] [id number] [place] [address] 99205- 0416 17 Jan, 2017 History of DVT (deep vein thrombosis) Z86.718 [facility] [id number] [place] [address] 83030- 4936 Jan, Generalized anxiety disorder F41.1 and Peripheral edema R60.9 [facility] [id number] [place] [address] 06230 2546 Nov, History of DVT (deep vein thrombosis) Z86.718 [facility] [id number] [place] [address] 18861- 3126 Nov, half-way (current) use of anticoagulants Z79.01 [facility] [address] [place] [address] 80137 -6211 Nov, Acute non-recurrent maxillary sinusitis J01.00 [facility] [address] [place] [address] 64031- 7256 Oct, half-way (current) use of anticoagulants Z79.01 [facility] [id number] [place] [address] 26478- 1518 Oct, Personal history of venous thrombosis and embolism Z86.718 [place] [id number] [place] [address] 23099- 2304 Sep, [facility] [address] [place] [address] 81884- 2540 Sep, Personal history of venous thrombosis and embolism Z86.718 [facility] [id number] [place] [address] 34947- 3348 Sep, 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 [facility] [address] [place] [address] 77222- 2981 11 Walter, 2017 half-way (current) use of anticoagulants Z79.01 [place] [id number] [place] [address] 08264- 3618 Sep, Generalized anxiety disorder F41.1 and History of DVT (deep vein thrombosis) Z86.718 [place] [id number] [place] [address] 83935- 2300 Aug, History of DVT (deep vein thrombosis) Z86.718 ; Generalized anxiety disorder F41.1 ; half-way (current) use of anticoagulants Z79.01 ; Pelvic pain R10.2 ; Hypertriglyceridemia E78.1 ; Excessive daytime sleepiness G47.19 ; Colon cancer screening Z12.11 ; Screening for breast cancer Z12.39 ; Peripheral edema R60.9 and Gastroesophageal reflux disease, esophagitis presence not specified K21.9 [place] [address] 03134- 1795 Aug, [place] [address] 11397- 9148 July, [place] [address] 28752- 4529 July, History of DVT (deep vein thrombosis) Z86.718 [place] [address] 40281- 2440 Jun, Generalized anxiety disorder F41.1 [place] [address] 06984- 0173 Jun, History of DVT (deep vein thrombosis) Z86.718 [place] [address] 07414- 1450 Jun, History of DVT (deep vein thrombosis) Z86.718 [place] [address] 56992- 6991 Jun, History of DVT (deep vein thrombosis) Z86.718 [place] [address] 99266- 5201 Jun, History of DVT (deep vein thrombosis) Z86.718 [facility] [address] [place] [address] 99527- 7290 May, History of DVT (deep vein thrombosis) Z86.718 [facility] [id number] [place] [address] 31461- 5019 May, half-way (current) use of anticoagulants Z79.01 [facility] [id number] [place] [address] 32839- 3241 May, half-way (current) use of anticoagulants Z79.01 [place] [id number] [place] [address] 08782- 4023 May, History of DVT (deep vein thrombosis) Z86.718 [facility] [id number] [place] [address] 21122 -3480 27 Apr, 2016 Bacterial conjunctivitis of left eye H10.9 and H/O motion sickness Z87.898 [place] [id number] [place] [address] 91028- 3764 24 Apr, 2016 History of DVT (deep vein thrombosis) Z86.718 [facility] [id number] [place] [address] 85065- 6536 23 Apr, 2016 History of DVT (deep vein thrombosis) Z86.718 [facility] [id number] [place] [address] 54171- 5586 15 Apr, 2016 History of DVT (deep vein thrombosis) Z86.718 [facility] [address] [place] [address] 82306- 0792 14 Apr, 2016 half-way (current) use of anticoagulants Z79.01 [facility] [address] [place] [address] 91187- 4720 Mar, [facility] [id number] [place] [address] 92641- 3599 Mar, 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 [facility] [address], [place] [address] 2546 Mar, Hypertriglyceridemia E78.1 and half-way (current) use of anticoagulants Z79.01 [facility] [address], [place] [address] 2546 Feb, half-way (current) use of anticoagulants Z79.01 [place] [id number] [place] [address] 54878 2546 Feb, 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 [place] [id number] [place] [address] 46258 2546 Feb, 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 [place] [id number] [place] [address] 28950- 3526 Dec, [place] [id number] [place] [address] 58284- 3946 Nov, [place] [id number] [place] [address] 66600- 7091 Nov, History of DVT (deep vein thrombosis) Z86.718 ; Tremulousness R25.1 ; Generalized anxiety disorder F41.1 ; Peripheral edema R60.9 and Hypertriglyceridemia E78.1 [place] [address], [place] [address]- 3256 Oct, History of DVT (deep vein thrombosis) Z86.718 [place] [address], [place] [address] 2546 Oct, [place] [id number] [place] [address] 61566 2546 Sep, History of DVT (deep vein thrombosis) Z86.718 [facility] [address], [place] [address]- 2546 Sep, 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 [place] [id number] [place] [address] 46532- 3203 July, [facility] [address] 79739- 7591 July, 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 [facility] [address] 26636- 3740 July, half-way (current) use of anticoagulants Z79.01 [facility] [id number] [place] [address] 58777- 4263 Jun, half-way (current) use of anticoagulants Z79.01 [facility] [address] 94612 -6959 Jun, Coccyx pain M53.3 ; Encounter for therapeutic drug level monitoring Z51.81 and terminal system operator current use 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.01 [place] [address] 91439- 2325 May, Abnormal mammogram R92.8 [facility] [address] 57519 -0041 May, [facility] [address] 92334 -5800 May, Acute vaginitis N76.0 and Encounter for other screening for malignant neoplasm of breast Z12.39 [place] [id number] [place] [address] 61599- 6346 Apr, [facility] [address] 06200- 7454 Apr, [place] [address] 25606- 3593 Apr, Peripheral edema R60.9 [facility] [address] 30573- 4565 Apr, half-way (current) use of anticoagulants Z79.01 [facility] [address] [place] [address] 10903 2546 18 Apr, 2015 Peripheral edema R60.9 and 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 [place] [id number] [place] [address] 52057 2546 Apr, 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 [place] [id number] [place] [address] 44353 2546 Apr, [place] [id number] [place] [address] 44315 2546 Apr, half-way (current) use of anticoagulants Z79.01 [place] [id number] [place] [address] 22073 2546 Apr, Peripheral edema R60.9 [place] [id number] [place] [address] 55502 2549 Mar, 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 [place] [id number] [place] [address] 89149 2546 Mar, half-way (current) use of anticoagulants Z79.01 and Hypertriglyceridemia E78.1 [place] [id number] [place] [address] 84009 2546 Mar, half-way (current) use of anticoagulants Z79.01 [place] [id number] [place] [address] 40994 2546 Mar, 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 [place] [id number] [place] [address] 78538 2546 Mar, [place] [address] [place] [address] 00530 2546 Mar, half-way (current) use of anticoagulants Z79.01 ; Hypertriglyceridemia E78.1 ; Personal history of venous thrombosis and embolism Z86.718 and Lump R22.9 [facility] [address] [address]- 6800 Mar, Personal history of venous thrombosis and embolism Z86.718 [facility] [address]- 4309 Mar, Personal history of venous thrombosis and embolism Z86.718 [facility] [address] [place] [address] 02431- 4457 Mar, [facility] [address] [place] [address] 82429- 6398 Dec, Personal history of venous thrombosis and embolism Z86.718 [place] [address] [place] [address] 37300- 3965 Dec, Personal history of venous thrombosis and embolism V12.51 [place] [address] [place] [address] 15220- 7473 Nov, Personal history of venous thrombosis and embolism V12.51 [place] [address] [address]- 9855 Nov, Personal history of venous thrombosis and embolism V12.51 [place] [address], [place] [address]- 9339 Nov, Personal history of venous thrombosis and embolism V12.51 [place] [address] [place] [address] 57094- 9577 Nov, Personal history of venous thrombosis and embolism V12.51 [place] [facility] [id number], [place] [address]- 3106 Nov, [place] [address] [place] [address] 13524- 7046 Oct, Dysuria 788.1 [place] [address] [address]- 3821 Oct, Personal history of venous thrombosis and embolism V12.51 [place] [address] 6858 Oct, [facility] [id number]- 3939 Oct, Personal history of venous thrombosis and embolism V12.51 [facility] [id number] [address]- 2676 Sep, Personal history of venous thrombosis and embolism V12.51 [facility] [address] [address]- 9587 Sep, Personal history of venous thrombosis and embolism V12.51 [facility] [address] [address]- 8541 Aug, Personal history of venous thrombosis and embolism V12.51 [facility] [address]- 0966 Aug, Personal history of venous thrombosis and embolism V12.51 [facility] [address], [place] [address]- 3124 Aug, Personal history of venous thrombosis and embolism V12.51 [facility] [id number]- 5847 July, Generalized anxiety disorder 300.02 ; Abdominal pain, left lower quadrant 789.04 and Personal history of venous thrombosis and embolism V12.51 [facility] [address] [address]- 5643 Jun, [facility] [id number], [place] [address]- 6876 Jun, [facility] [address], [place] [address]- 3469 May, [facility] [address]- 3726 May, [facility] [id number] 3118 May, [facility] [place] [facility] [address] [id number] [place] [address]- 2344 17 May, 2014 [facility] [place] [facility] [address] [id number] [place] [address]- 0932 May, [facility] [place] [facility] [address] [id number] [place] [address]- 3888 May, [facility] [place] [facility] [address] [id number] [place] [address]- 5168 May, [facility] [place] [facility] [address] [id number] [place] [address]- 2764 May, [facility] [place] [facility] [address] [id number] [place] [address]- 5526 Apr, [facility] [place] [facility] [address] [id number] [place] [address]- 4782 Apr, [facility] [place] [facility] [address] [id number] [place] [address]- 8831 Apr, [facility] [place] [facility] [address] [id number] [place] [address]- 3708 Apr, [facility] [place] [facility] [address] [id number] [place] [address]- 8334 Apr, [facility] [place] [facility] [address] [id number] [place] [address]- 5020 Mar, [facility] [place] [facility] [address] [id number] [address]- 3089 Mar, [facility] [place] [facility] [address] [id number] [place] [address]- 7953 Mar, [facility] [place] [facility] [address] [id number] [place] [address]- 9231 Mar, [facility] [place] [facility] [address] [id number] [place] [address] Mar, [facility] [place] [facility] [address] [id number] [place] [address] Mar, [facility] [place] [facility] [address] [id number] [place] [address] Feb, [facility] [place] [facility] [address] [id number] [place] [address] Feb, [facility] [place] [facility] [address] [id number] [place] [address] Feb, [facility] [place] [facility] [address] [id number] [place] [address] Feb, [facility] [place] [facility] [address] [id number] [place] [address] Feb, [facility] [place] [facility] [address] [id number] [place] [address] Feb, [facility] [place] [facility] [address] [id number] [place] [address] Feb, [facility] [place] [facility] [address] [id number] [place] [address] Feb, [facility] [place] [facility] [address] [id number] [place] [address]- [address] Feb, [facility] [place] [facility] [address] [id number] [place] [address] Feb, [facility] [place] [facility] [address] [id number] [place] [address] Jan, [facility] [place] [facility] [address] [id number] [place] [address] Jan, [facility] [place] [facility] [address] [id number] [place] [address]- [address] Jan, [facility] [place] [facility] [address] [id number] [place] [address] Jan, [facility] [place] [facility] [address] [id number] [place] [address] Jan, [facility] [place] [facility] [address] [id number] [place] [address]- [address] Jan, [facility] [place] [facility] [address] [id number] [place] [address] Jan, [facility] [place] [facility] [address] [id number] [place] [address] Jan, [facility] [place] [facility] [address] [id number] [place] [address]- [address] Jan, [facility] [place] [facility] [address] [id number] [place] [address]- [address] Jan, [facility] [place] [facility] [address] [id number] [place] [address]- [address] Dec, [facility] [place] [facility] [address] [id number] [place] [address]- [address] Dec, [facility] [place] [facility] [address] [id number] [place] [address]- [address] Dec, [facility] [place] [facility] [address] [id number] [place] [address]- [address] Dec, [facility] [place] [facility] [address] [id number] [place] [address] Dec, [facility] [place] [facility] [address] [id number] [place] [address] Dec, [facility] [place] [facility] [address] [id number] [place] [address] 0679 Dec, [facility] [place] [facility] [address] [id number] [place] [address] 2918 Dec, [facility] [place] [facility] [address] [id number] [place] [address] 7547 Dec, [facility] [place] [facility] [address] [id number] [place] [address]- 8689 Dec, [facility] [place] [facility] [address] [id number], [place] [address] 28[address] Dec, [facility] [place] [facility] [address] [id number] [place] [address] 3857 Dec, [facility] [place] [facility] [address] [id number] [place] [address]- 0026 Dec, [facility] [place] [facility] [address] [id number] [place] [address]- 5522 Dec, [facility] [place] [facility] [address] [id number] [place] [address]- 1291 Dec, [facility] [place] [facility] [address] [id number] [place] [address]- 1427 30 Nov, 2013 [facility] [place] [facility] [address] [id number] [place] [address]- 4406 30 Nov, 2013 [facility] [place] [facility] [address] [id number] [place] [address]- 2539 26 Nov, 2013 [facility] [place] [facility] [address] [id number] [place] [address]- 4343 26 Nov, 2013 [facility] [place] [facility] [address] [id number] [place] [address]- 6560 24 Nov, 2013 [facility] [place] [facility] [address] [id number] [place] [address] 24 Nov, 2013 [facility] [place] [facility] [address] [id number], [place] [address] 9983 23 Nov, 2013 [facility] [place] [facility] [address] [id number], [place] [address] 2544 23 Nov, 2013 [facility] [place] [facility] [address] [id number] [place] [address]- 2543 18 Nov, 2013 [facility] [place] [facility] [address] [id number] [place] [address]- 2548 18 Nov, 2013 [facility] [place] [facility] [address] [id number] [place] [address]- 2545 17 Nov, 2013 [facility] [place] [facility] [address] [id number] [place] [address]- 7258 17 Nov, 2013 [facility] [place] [facility] [address] [id number] [place] [address]- 3296 11 Nov, 2013 [facility] [place] [facility] [address] [id number] [place] [address]- 2686 11 Nov, 2013 [facility] [place] [facility] [address] [id number] [place] [address]- 5006 10 Nov, 2013 [facility] [place] [facility] [address] [id number] [place] [address]- 2541 10 Nov, 2013 [facility] [place] [facility] [address] [id number] [place] [address]- 3615 08 Nov, 2013 [facility] [place] [facility] [address] [id number] [place] [address]- 3337 08 Nov, 2013 [facility] [place] [facility] [address] [id number] [place] [address]- 6272 Sep, [facility] [place] [facility] [address] [id number] [place] [address]- 9698 Sep, [facility] [place] [facility] [address] [id number] [place] [address]- 7793 Sep, [facility] [place] [facility] [address] [id number] [place] [address]- 6138 Sep, [facility] [place] [facility] [address] [id number] [place] [address]- 6559 Sep, [facility] [place] [facility] [address] [id number] [place] [address]- 5444 Sep, [facility] [place] [facility] [address] [id number] [place] [address]- 8417 Aug, [facility] [place] [facility] [address] [id number] [place] [address]- 5459 Aug, [facility] [place] [facility] [address] [id number] [place] [address]- 8798 Aug, [facility] [place] [facility] [address] [id number] [place] [address]- 0259 Aug, [facility] [place] [facility] [address] [id number] [place] [address]- 1791 Aug, [facility] [place] [facility] [address] [id number] [place] [address]- 2309 Aug, [facility] [place] [facility] [address] [id number] [place] [address]- 1804 Aug, [facility] [place] [facility] [address] [id number] [place] [address]- 4514 Aug, [facility] [place] [facility] [address] [id number] [place] [address]- 8526 Aug, [facility] [place] [facility] [address] [id number] [place] [address]- 0802 Aug, [facility] [place] [facility] [address] [id number] [place] [address]- 3734 Aug, [facility] [place] [facility] [address] [id number] [place] [address]- 0716 July, [facility] [place] [facility] [address] [id number] [place] [address]- 9270 July, [facility] [place] [facility] [address] [id number] [place] [address]- 6000 Jun, [facility] [place] [facility] [address] [id number], [place] [address] 7909 Jun, [facility] [place] [facility] [address] [id number] [place] [address]- 3147 Jun, [facility] [place] [facility] [address] [id number] [place] [address]- 8585 Jun, [facility] [place] [facility] [address] [id number] [place] [address]- 9582 Jun, [facility] [place] [facility] [address] [id number] [place] [address]- 6522 18 Jun, 2013 [facility] [place] [facility] [address] [id number] [place] [address]- 9246 15 Jun, 2013 [facility] [place] [facility] [address] [id number] [place] [address]- 0865 15 Jun, 2013 [facility] [place] [facility] [address] [id number] [place] [address]- 7557 11 Jun, 2013 [facility] [place] [facility] [address] [id number] [place] [address]- 3856 11 Jun, 2013 [facility] [place] [facility] [address] [id number] [place] [address]- 1863 Jun, [facility] [place] [facility] [address] [id number] [place] [address]- 2832 Jun, [facility] [place] [facility] [address] [id number] [place] [address]- 4812 May, [facility] [place] [facility] [address] [id number] [place] [address]- 4240 May, [facility] [place] [facility] [address] [id number] [place] [address]- 0808 May, [facility] [place] [facility] [address] [id number] [place] [address]- 8449 May, [facility] [place] [facility] [address] [id number] [place] [address]- 5243 May, [facility] [place] [facility] [address] [id number] [place] [address]- 6180 May, [facility] [place] [facility] [address] [id number] [place] [address]- 0365 May, [facility] [place] [facility] [address] [id number] [place] [address]- 6643 May, [facility] [place] [facility] [address] [facility] [id number] [place] [address]- 5809 May, [facility] [place] [facility] [address] [id number] [place] [address]- 5434 May, [facility] [place] [facility] [address] [id number] [place] [address]- 3438 May, [facility] [place] [facility] [address] [id number] [place] [address]- 6378 May, [facility] [place] [facility] [address] [id number] [place] [address]- 2401 Apr, [facility] [place] [facility] [address] [id number] [place] [address]- 2334 Apr, [facility] [place] [facility] [address] [id number] [place] [address]- 0032 Apr, [facility] [place] [facility] [address] [id number] [place] [address]- 9894 Apr, [facility] [place] [facility] [address] [id number] [place] [address]- 3789 Apr, [facility] [place] [facility] [address] [id number] [place] [address]- 6389 Apr, [facility] [place] [facility] [address] [id number] [place] [address]- 9433 Apr, [facility] [place] [facility] [address] [id number] [place] [address]- 3929 Apr, [facility] [place] [facility] [address] [id number] [place] [address]- 9938 Apr, [facility] [place] [facility] [address] [id number] [place] [address]- 4706 Apr, [facility] [place] [facility] [address] [id number] [place] [address]- 1278 Apr, [facility] [place] [facility] [address] [id number] [place] [address]- 2369 Apr, [facility] [place] [facility] [address] [id number] [place] [address]- 7797 20 Apr, 2013 [facility] [address] [id number] [place] [address]- 3126 Apr, 2013 [facility] [place] [facility] [address] [id number] [place] [address]- 9596 Apr, 2013 [facility] [address] [id number] [place] [address]- 5926 Apr, 2013 [facility] [place] [facility] [address] [id number] [place] [address]- 2452 13 Apr, 2013 [facility] [address] [facility] [id number] [place] [address]- 3356 Jan, [facility] [address] [facility] [id number] [place] [address]- 8148 Jan, [facility] [place] [facility] [address] [facility] [id number] [place] [address]- 9667 08 Jan, 2013 [facility] [address] [id number] [place] [address]- 3096 Jan, [facility] [place] [facility] [address] [facility] [id number] [place] [address]- 9444 Jan, [facility] [address] [facility] [id number] [place] [address]- 7838 Jan, [facility] [place] [facility] [address] [facility] [id number] [place] [address]- 4277 Jan, [facility] [place] [facility] [address] [id number] [place] [address]- 1967 Dec, [facility] [place] [facility] [address] [id number] [place] [address] Dec, [facility] [place] [facility] [address] [facility] [id number] [place] [address]- 3071 08 Dec, 2012 [facility] [place] [facility] [address] [facility] [id number] [place] [address]- 3526 Nov, [facility] [place] [facility] [address] [id number] [place] [address]- 5386 Nov, [facility] [place] [facility] [address] [id number] [place] [address]- 8738 Nov, [facility] [place] [facility] [address] [id number] [place] [address]- 5407 Nov, [facility] [place] [facility] [address] [id number] [place] [address]- 7063 Oct, [facility] [place] [facility] [address] [id number] [place] [address]- 2890 Oct, [facility] [place] [facility] [address] [id number] [place] [address]- 8811 Oct, [facility] [place] [facility] [address] [id number] [place] [address]- 2234 Oct, [facility] [place] [facility] [address] [id number] [place] [address]- 4301 Oct, [facility] [place] [facility] [address] [id number] [place] [address]- 9963 Sep, [facility] [place] [facility] [address] [id number] [place] [address]- 5013 Sep, [facility] [place] [facility] [address] [id number] [place] [address]- 9534 Sep, [facility] [place] [facility] [address] [id number] [place] [address]- 6725 Sep, [facility] [place] [facility] [address] [id number] [place] [address]- 3637 Sep, [facility] [place] [facility] [address] [id number] [place] [address]- 5923 Sep, [facility] [place] [facility] [address] [id number] [place] [address]- 5328 Sep, [facility] [place] [facility] [address] [id number], [place] [address]- 5833 Aug, [facility] [address] [id number] [place] [address]- 6566 Aug, [facility] [address] [id number] [place] [address]- 6817 July, [facility] [address] [id number] [place] [address]- 7583 Jun, [facility] [address] [id number] [place] [address]- 6636 Jun, [facility] [address] [id number] [place] [address]- 0739 Jun, [facility] [address] [id number] [place] [address]- 6831 Apr, [facility] [address] [id number] [place] [address]- 8966 Apr, [facility] [address] [id number] [place] [address]- 5694 Apr, [facility] [address] [id number] [place] [address]- 1015 Mar, [facility] [address] [facility] [id number] [place] [address]- 7349 Mar, [facility] [address] [id number] [place] [address]- 5566 Mar, [facility] [address] [id number] [place] [address]- 7463 Mar, [facility] [place] [facility] [address] [id number] [place] [address]- 9031 Mar, [facility] [place] [facility] [address] [id number] [place] [address]- 5410 Feb, [facility] [address] [id number] [place] [address]- 1798 Feb, [facility] [place] [facility] [address] [id number] [place] [address]- 1684 Jan, [facility] [place] [facility] [address] [id number] [place] [address]- 1412 Jan, [facility] [place] [facility] [address] [id number] [place] [address]- 1580 Jan, [facility] [place] [facility] [address] [id number] [place] [address], [place] [address]- 7850 Jan, [facility] [place] [facility] [address] [id number] [place] [address]- 7440 Jan, [facility] [place] [facility] [address] [id number] [place] [address]- 3728 Jan, [facility] [place] [facility] [address] [id number] [place] [address]- 6276 Jan, [facility] [place] [facility] [address] [id number] [place] [address]- 5265 Dec, [facility] [place] [facility] [address] [id number] [place] [address]- 7496 Dec, [facility] [place] [facility] [address] [id number] [place] [address]- 9201 Dec, [facility] [place] [facility] [address] [id number] [place] [address]- 5399 30 Dec, 2011 [facility] [place] [facility] [address] [id number] [place] [address]- 3359 30 Dec, 2011 [facility] [place] [facility] [address] [id number] [place] [address]- 4605 Dec, [facility] [place] [facility] [address] [id number] [place] [address]- 4388 Dec, [facility] [place] [facility] [address] [id number] [place] [address]- 9769 30 Dec, 2011 [facility] [place] [facility] [address] [id number] [place] [address]- 4586 Dec, [facility] [address] [id number] [place] [address]- 0096 Dec, [facility] [place] [facility] [address] [id number] [place] [address]- 9286 Oct, [facility] [place] [facility] [address] [id number] [place] [address]- 9820 Oct, [facility] [place] [facility] [address] [id number] [place] [address]- 3475 Aug, [facility] [place] [facility] [address] [id number] [place] [address]- 5910 Aug, [facility] [place] [facility] [address] [id number] [place] [address]- 8380 July, [facility] [place] [facility] [address] [id number] [place] [address]- 4899 Jun, [facility] [place] [facility] [address] [id number] [place] [address]- 6741 Jun, [facility] [place] [facility] [address] [id number] [place] [address]- 2092 May, [facility] [place] [facility] [address] [id number] [place] [address]- 4686 Apr, [facility] [place] [facility] [address] [id number], [place] [address]- 8362 Apr, [facility] [place] [facility] [address] [id number] [place] [address]- 0950 Mar, [facility] [place] [facility] [address] [id number] [place] [address]- 2333 Mar, [facility] [place] [facility] [address] [id number] [place] [address]- 8844 Feb, [facility] [place] [facility] [address] [id number] [place] [address]- 6668 Feb, [facility] [place] [facility] [address] [id number] [place] [address]- 3710 13 Feb, 2011 [facility] [address] [id number] [place] [address]- 1212 13 Feb, 2011 [facility] [address] [id number] [place] [address]- 0866 11 Jan, 2011 [facility] [address] [id number] [place] [address]- 9293 17 Dec, 2010 [facility] [address] [id number] [place] [address]- 3461 08 Feb, 2010 [facility] [address] [id number] [place] [address]- 1228 Feb, [facility] [address] [facility] [id number] [place] [address]- 9250 Feb, [facility] [address] [facility] [id number] [place] [address]- 7874 Feb, [facility] [address] [id number] [place] [address]- 0490 15 Dec, 2009 [facility] [address] [facility] [id number] [place] [address]- 0218 15 Dec, 2009 [facility] [address] [facility] [id number] [place] [address]- 8018 Oct, [facility] [address] [facility] [id number] [place] [address]- 9012 15 Jun, 2009 [facility] [address] [id number] [place] [address]- 4570 Feb, [facility] [address] [id number] [place] [address]- 6828 Feb, [facility] [address] [facility] [id number] [place] [address]- 2546 Feb, [facility] [address] [facility] [id number] [place] [address]- 2805 Dec, IMMUNIZATIONS No Known Immunizations SOCIAL HISTORY Never Assessed REASON FOR VISIT reports that last noc she was watching tv et her eyes started itching et felt like sand was in them. woke up this am et they were matted shut.[email or web address] PLAN OF CARE Activity Details Follow Up if not improving with PCP or reg follow up Reason: VITAL SIGNS Height 64 in 2018-02-25 Weight 210.4 lbs 2018-02-25 Temperature 98.8 degrees Fahrenheit 2018-02-25 Heart Rate 80 bpm 2018-02-25 Respiratory Rate 20 2018-02-25 BMI 36.11 kg/m2 2018-02-25 Blood pressure systolic 120 mmHg 2018-02-25 Blood pressure diastolic 74 mmHg 2018-02-25 MEDICATIONS Medication Instructions Dosage Frequency Start Date End Date Duration Status Xarelto 20 mg Orally Once a day 1 tablet with food 24h Oct, 30 day(s) Active Pantoprazole Sodium 20 mg Orally Once a day 1 tablet 24h Oct, 30 day(s) Active Hydrochlorothiazide 50 MG TAKE ONE TABLET BY MOUTH ONCE DAILY 90 Active Vistaril 50 MG TAKE ONE CAPSULE BY MOUTH EVERY 6 HOURS NEEDED 30 Active Gentamicin Sulfate 0.3 % Ophthalmic every 4 hrs 1 drop into affected eye 4h Jan, 7 days Active Tylenol 325 MG Orally every 6 hrs 1 tablet as needed 6h Active Lexapro 10 MG TAKE ONE TABLET BY MOUTH ONCE DAILY 90 Active RESULTS No Results PROCEDURES No Known procedures INSTRUCTIONS MEDICATIONS ADMINISTERED No Known Medications MEDICAL (GENERAL) HISTORY Type Description Date Medical History obesity Medical History Hematologic disorder factor clotting problem Medical History DVT's Medical History Torn Rotator Cuff, repaired 09/23/17 Surgical History Lap Band 10/2012 Surgical History section 1987 Surgical History cholecystectomy Surgical History Roslyn Filter 06/2009 Surgical History Left leg exploratory surgery r/t clot 1987 Surgical History left shoulder surgery 09/14/17 Surgical History lap band removed 12/2017 Hospitalization History Ruptured Ovarian Cyst with abd bleeding 11/2009
--- OUTSIDE RECORDS SUMMARY | 2018-08-02 08:44 | XMS REPORT ---
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 Product Promoter Sales Person Name Role Phone ELMO BRUNOY Unavailable PROBLEMS Type Condition ICD9-CM Code QBK19-VG Code Onset Dates Condition Status SNOMED Code Problem Presence of IVC filter Z95.828 Active 075113446 Problem Pelvic pain R10.2 Active 69090467 Problem 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 Active 473535759 Problem Obstructive sleep apnea G47.33 Active 74358262 Problem Morbid obesity E66.01 Active 709362168 Problem Excessive daytime sleepiness G47.19 Active 357291311572 Problem Peripheral edema R60.9 Active 999773919 Problem Thyroid nodule E04.1 Active 592419488 Problem Gastroesophageal reflux disease, esophagitis presence not specified K21.9 Active 686063301 Problem History of DVT (deep vein thrombosis) Z86.718 Active 103228757 Problem Hypertriglyceridemia E78.1 Active 233538362 Problem 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 Active 924485673 Problem Factor V Leiden D68.51 Active 396121813 Problem Generalized anxiety disorder F41.1 Active 824462565 ALLERGIES No Information ENCOUNTERS Encounter Location Date Diagnosis [facility], [place] [id number] [address] Dec, [facility], [place] [address] [address] Dec, [facility], [place] [address] [place] [address] 86435- 7451 Nov, [facility], [place] [id number] [address] Nov, Obstructive sleep apnea G47.33 ; Morbid obesity E66.01 and Gastroesophageal reflux disease, esophagitis presence not specified K21.9 [facility] [id number] [id number] 06 Nov, 2017 Encounter for examination of eyes and vision without abnormal findings Z01.00 [facility] [id number] [place] [address] 32707- 6675 Oct, Thyroid nodule E04.1 and Screening for breast cancer Z12.31 [facility] [facility] [address] 76990- 5144 23 Oct, 2017 History of DVT (deep vein thrombosis) Z86.718 ; Thyroid nodule E04.1 and Gastroesophageal reflux disease, esophagitis presence not specified K21.9 [facility] [address] 64362- 4236 Oct, [facility] [facility] [address] 15433- 1775 Sep, [facility] [facility] [address] 92916- 9982 Aug, [facility] [id number] [place] [address] 16578- 4529 Aug, [facility] [id number] [place] [address] 86916- 4660 Aug, Acute pain of left shoulder M25.512 and Thyroid nodule E04.1 [facility] [address] 02463- 2949 July, Superior glenoid labrum lesion of left shoulder, subsequent encounter S43.432D [facility] [id number] [place] [address] 11439- 4438 Jun, History of DVT (deep vein thrombosis) Z86.718 [facility], [place] [id number] [place] [address] 69911- 1783 Jun, History of DVT (deep vein thrombosis) Z86.718 [facility] [id number] [place] [address] 97688- 3790 Jun, Impingement syndrome, shoulder, left M75.42 [facility] [id number] [place] [address] 70950- 2240 May, Subacromial bursitis of left shoulder joint M75.52 [facility] [id number] [place] [address] 17147- 1918 May, [facility] [facility] [address] 69998- 2499 May, Hypertriglyceridemia E78.1 ; longterm (current) 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 Z79.01 and Excessive daytime sleepiness G47.19 [facility] [id number] [place] [address] 91126- 1331 May, History of DVT (deep vein thrombosis) Z86.718 ; Generalized anxiety disorder F41.1 ; Hypertriglyceridemia E78.1 ; longterm (current) 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 Z79.01 ; Subacromial bursitis of left shoulder joint M75.52 and Excessive daytime sleepiness G47.19 [facility] [id number] [place] [address] 94354- 5004 May, [facility] [id number] [place] [address] 11401- 1304 May, longterm (current) 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 Z79.01 [facility] [id number] [place] [address] 19312- 8870 Apr, longterm (current) 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 Z79.01 [facility] [id number] [place] [address] 62848- 0629 Apr, longterm (current) 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 Z79.01 [facility] [facility] [id number] [place] [address] 24073- 8885 Apr, 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 [facility] [id number] [place] [address] 45549- 2497 Apr, [place] [address] [place] [address] 61218- 2546 16 Apr, 2017 longterm (current) 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 Z79.01 [facility], [place] [address] [place] [address] 30392 2546 13 Apr, 2017 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 [facility], [place] [address] [place] [address] 94799 2546 Apr, longterm (current) 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 Z79.01 [facility], [place] [id number] [place] [address] 84239 2546 Apr, 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 [facility], [place] [id number] [place] [address] 42219 2546 Apr, longterm (current) 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 Z79.01 [facility], [place] [id number] [place] [address] 38228 2546 Apr, 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 [facility], [place] [id number] [place] [address] 16790 2546 Mar, 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 [facility], [place] [address] [place] [address] 22262 2546 Mar, [facility], [place] [id number] [place] [address] 38649 2546 Mar, 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 [facility] [address] [place] [address] [id number] Jan, Dental examination Z01.20 [facility] [id number] [place] [address] [id number] Jan, [facility], [place] [address] [place] [address] 82910 2546 Jan, 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 [facility], [place] [address] [place] [address] 08110- 2135 Jan, History of DVT (deep vein thrombosis) Z86.718 [facility], [place] [id number] [place] [address] 41471- 4144 Jan, Generalized anxiety disorder F41.1 and Peripheral edema R60.9 [facility], [place] [id number] [place] [address] 67661- 6706 Nov, History of DVT (deep vein thrombosis) Z86.718 [facility], [place] [id number] [place] [address] 79005- 5913 Nov, longterm (current) 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 Z79.01 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 [facility], [place] [id number] [place] [address] 43013- 4695 Oct, Personal history of venous thrombosis and embolism Z86.718 [facility], [place] [id number] [place] [address] 17347- 6578 Sep, [facility], [place] [id number] [place] [address] 58575- 6780 Sep, Personal history of venous thrombosis and embolism Z86.718 [facility], [place] [address] [place] [address] 69357- 3975 Sep, longterm (current) 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 Z79.01 [facility], [place] [id number] [place] [address] 27747- 4214 Sep, 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 [facility], [place] [address] [place] [address] 93813- 7789 Sep, Generalized anxiety disorder F41.1 and History of DVT (deep vein thrombosis) Z86.718 [address] [address] 91958- 8006 Aug, History of DVT (deep vein thrombosis) Z86.718 ; Generalized anxiety disorder F41.1 ; longterm (current) 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 Z79.01 ; Pelvic pain R10.2 ; Hypertriglyceridemia E78.1 ; Excessive daytime sleepiness G47.19 ; Colon cancer screening Z12.11 ; Screening for breast cancer Z12.39 ; Peripheral edema R60.9 and Gastroesophageal reflux disease, esophagitis presence not specified K21.9 [place] [address] 06670- 1940 Aug, [place] [address] 84832- 7228 July, [place] [facility] [address] 19899- 5084 July, History of DVT (deep vein thrombosis) Z86.718 [address] [address] 22592- 8600 Jun, Generalized anxiety disorder F41.1 [facility] [facility] [address] 47615- 9916 Jun, History of DVT (deep vein thrombosis) Z86.718 [address] [address] 18918- 7321 Jun, History of DVT (deep vein thrombosis) Z86.718 [address] [address] 97388- 3096 Jun, History of DVT (deep vein thrombosis) Z86.718 [address] [address] 41726- 0174 Jun, History of DVT (deep vein thrombosis) Z86.718 [address] [address] 43396- 3771 May, History of DVT (deep vein thrombosis) Z86.718 [facility], [place] [id number] [place] [address] 48708- 9789 May, 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 [address] 25207 -2331 27 Apr, 2016 Bacterial conjunctivitis of left eye H10.9 and H/O motion sickness Z87.898 [place] [address] 47736- 1481 24 Apr, 2016 History of DVT (deep vein thrombosis) Z86.718 [facility] [id number] [place] [address] 73972- 4800 23 Apr, 2016 History of DVT (deep vein thrombosis) Z86.718 [facility] [id number] [place] [address] 68743- 4381 15 Apr, 2016 History of DVT (deep vein thrombosis) Z86.718 [address] [facility] [id number] [place] [address] 99940- 9916 14 Apr, 2016 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 [place] [id number] [place] [address] 65061- 6553 Mar, [address] [address] 45856- 7387 Mar, longterm (current) 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 Z79.01 [place] [id number] [place] [address] 15176- 9706 Mar, Hypertriglyceridemia E78.1 and 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 [place] [address] [place] [address] 93986- 9006 Feb, 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 [place] [address] [place] [address] 78707 2546 Feb, longterm (current) 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 Z79.01 [place] [id number] [place] [address] 69146 2546 Feb, 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 [place] [id number] [place] [address] 99384- 7576 Dec, [facility] [id number] [place] [address] 13169- 9746 Nov, [facility] [id number] [place] [address] 38864- 7820 Nov, History of DVT (deep vein thrombosis) Z86.718 ; Tremulousness R25.1 ; Generalized anxiety disorder F41.1 ; Peripheral edema R60.9 and Hypertriglyceridemia E78.1 [address] [place] [place] [address] 78306- 0461 Oct, History of DVT (deep vein thrombosis) Z86.718 [address] [place] [address] 50548 2546 Oct, [address] [place] [address] 56411- 2546 Sep, History of DVT (deep vein thrombosis) Z86.718 [facility] [id number] [place] [address] 39482 2546 Sep, 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 [address] [address]- 2546 July, [facility] [id number] [place] [address]- 3193 July, 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 [facility], [place] [address] 76509- 0841 July, 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 [facility], [place] [id number] [place] [address] 14818- 6219 Jun, longterm (current) 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 Z79.01 [facility] [address] 80966 -5780 Jun, Coccyx pain M53.3 ; Encounter for therapeutic drug level monitoring Z51.81 and longterm current use 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.01 [place] [id number] [place] [address] 75373- 7944 May, Abnormal mammogram R92.8 [facility] [address] 43534 -3983 May, [facility] [address] 49309 -7026 May, Acute vaginitis N76.0 and Encounter for other screening for malignant neoplasm of breast Z12.39 [facility] [id number] [place] [address] 25458- 3234 Apr, [facility] [id number] [place] [address] 11428- 3330 Apr, [place] [id number] [place] [address] 51819- 3339 Apr, Peripheral edema R60.9 [address] [address] 78320- 9421 Apr, 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 [facility], [place] [id number] [place] [address] 55401- 2860 Apr, Peripheral edema R60.9 and 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 [address] [id number] [place] [address] 75440 2546 Apr, 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 [place] [id number] [place] [address] 94403 2546 Apr, [place] [address] 87651 2546 Apr, 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 [place] [id number] [place] [address] 22943 2546 Apr, Peripheral edema R60.9 [address] [address] 08900- 1473 Mar, longterm (current) 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 Z79.01 [address] [address] 92948 2546 Mar, 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 and Hypertriglyceridemia E78.1 [address] [address] 94098- 4225 Mar, longterm (current) 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 Z79.01 [address] [id number] [place] [address] 53132- 9666 Mar, 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 [place] [id number] [place] [address] 91552 2546 Mar, [place] [id number] [place] [address] 38228 2546 Mar, 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 ; Hypertriglyceridemia E78.1 ; Personal history of venous thrombosis and embolism Z86.718 and Lump R22.9 [place] [id number] [place] [address] 69594 2546 Mar, Personal history of venous thrombosis and embolism Z86.718 [facility], [place] [address] [address]- 1380 Mar, Personal history of venous thrombosis and embolism Z86.718 [facility], [place] [address] [place] [address] 350825- 1197 Mar, [facility], [place] [address] [place] [address] 54617- 3794 Dec, Personal history of venous thrombosis and embolism Z86.718 [facility], [place] [address] [place] [address] 10470- 3143 Dec, Personal history of venous thrombosis and embolism V12.51 [facility], [place] [id number] [place] [address] 73253- 0953 Nov, Personal history of venous thrombosis and embolism V12.51 [place] [id number] [place] [address] 68863- 0994 Nov, Personal history of venous thrombosis and embolism V12.51 [facility], [place] [address] [place] [address] 86980- 8839 Nov, Personal history of venous thrombosis and embolism V12.51 [facility], [place] [address] [place] [address] 79132- 4882 Nov, Personal history of venous thrombosis and embolism V12.51 [facility], [place] [address] [place] [address] 94648- 8410 Nov, [facility], [place] [address] [place] [address] 73258- 8133 Oct, Dysuria 788.1 [facility], [place] [id number] [place] [address] 24486- 1090 Oct, Personal history of venous thrombosis and embolism V12.51 [facility], [place] [address] [place] [address] 19467- 3970 Oct, [facility], [place] [id number] [place] [address] 06338- 2260 Oct, Personal history of venous thrombosis and embolism V12.51 [facility], [place] [address]- 1409 Sep, Personal history of venous thrombosis and embolism V12.51 [facility], [place] [id number] [address]- 0584 Sep, Personal history of venous thrombosis and embolism V12.51 [facility], [place] [address]- 9394 Aug, Personal history of venous thrombosis and embolism V12.51 [facility], [place] [address] 0944 Aug, Personal history of venous thrombosis and embolism V12.51 [facility], [place] [address] [address]- 1165 Aug, Personal history of venous thrombosis and embolism V12.51 [facility], [place] [id number] [address]- 2676 July, Generalized anxiety disorder 300.02 ; Abdominal pain, left lower quadrant 789.04 and Personal history of venous thrombosis and embolism V12.51 [facility], [place] [id number] [address]- 1476 Jun, [facility], [place] [address] [address]- 1764 Jun, [facility], [place] [id number] [address]- 6625 May, [facility], [place] [address]- 7557 May, [facility], [place] [address]- 1434 May, [facility], [place] [id number] [address]- 6838 May, [facility] [place] [facility] [address] [id number] [place] [address]- 4619 May, [facility] [place] [facility] [address] [id number] [place] [address]- 1580 May, [facility] [place] [facility] [address] [id number] [place] [address]- 4143 May, [facility] [place] [facility] [address] [id number] [place] [address]- 2342 May, [facility] [place] [facility] [address] [id number] [place] [address]- 6344 Apr, [facility] [place] [facility] [address] [id number] [place] [address]- 1328 Apr, [facility] [place] [facility] [address] [id number] [place] [address]- 0307 Apr, [facility] [place] [facility] [address] [id number] [place] [address]- 1373 Apr, [facility] [place] [facility] [address] [id number] [place] [address]- 1304 Apr, [facility] [place] [facility] [address] [id number] [place] [address]- 3589 Mar, [facility] [place] [facility] [address] [id number] [place] [address]- 1245 Mar, [facility] [place] [facility] [address] [id number] [place] [address]- 1109 Mar, [facility] [place] [facility] [address] [id number] [place] [address]- 6238 Mar, [facility] [place] [facility] [address] [id number] [place] [address]- 8396 Mar, [facility] [place] [facility] [address] [id number] [place] [address]- 2044 Mar, [facility] [place] [facility] [address] [id number] [place] [address]- 1071 Feb, [facility] [place] [facility] [address] [id number] [place] [address]- 1457 Feb, [facility] [place] [facility] [address] [id number] [place] [address]- 1481 Feb, [facility] [place] [facility] [address] [id number] [place] 5832 Feb, [facility] [place] [facility] [address] [id number] [place] [address]- 7295 Feb, [facility] [place] [facility] [address] [id number] [place]- 1109 Feb, [facility] [place] [facility] [address] [id number] [place] 8229 Feb, [facility] [place] [facility] [address] [id number] [place] 8341 Feb, [facility] [place] [facility] [address] [id number] [place] [address] Feb, [facility] [place] [facility] [address] [id number] [place] [address] Feb, [facility] [place] [facility] [address] [id number] [place] [address] Jan, [facility] [place] [facility] [address] [id number] [place] [address] Jan, [facility] [place] [facility] [address] [id number] [place] [address] Jan, [facility] [place] [facility] [address] [id number] [place] [address] Jan, [facility] [place] [facility] [address] [id number] [place] [address] Jan, [facility] [place] [facility] [address] [id number] [place] [address] Jan, [facility] [place] [facility] [address] [id number] [place] [address] Jan, [facility] [place] [facility] [address] [id number] [place] [address] Jan, [facility] [place] [facility] [address] [id number] [place] [address] Jan, [facility] [place] [facility] [address] [id number] [place] [address] Jan, [facility] [place] [facility] [address] [id number] [place] [address] Dec, [facility] [place] [facility] [address] [id number] [place] [address] Dec, [facility] [place] [facility] [address] [id number] [place] [address] Dec, [facility] [place] [facility] [address] [id number] [place] [address] Dec, [facility] [place] [facility] [address] [id number] [place] [address] Dec, [facility] [place] [facility] [address] [id number] [place] [address] Dec, [facility] [place] [facility] [address] [id number] [place] [address] Dec, [facility] [place] [facility] [address] [id number] [place] [address] Dec, [facility] [place] [facility] [address] [id number] [place] [address] Dec, [facility] [place] [facility] [address] [id number] [place] [address] Dec, [facility] [place] [facility] [address] [id number] [place] [address] Dec, [facility] [place] [facility] [address] [id number] [place] [address]128 Dec, [facility] [place] [facility] [address] [id number] [place] [address]- 9531 Dec, [facility] [place] [facility] [address] [id number] [place] [address] 8412 Dec, [facility] [place] [facility] [address] [id number] [place] [address]- 0550 Dec, [facility] [place] [facility] [address] [id number] [place] [address]- 0591 30 Nov, 2013 [facility] [place] [facility] [address] [id number] [place] [address]- 4384 30 Nov, 2013 [facility] [place] [facility] [address] [id number] [place] [address]- 1317 Nov, 2013 [facility] [place] [facility] [address] [id number] [place] [address]- 0549 Nov, 2013 [facility] [place] [facility] [address] [id number] [place] [address]- 2773 24 Nov, 2013 [facility] [place] [facility] [address] [id number] [place] [address]- 0482 24 Nov, 2013 [facility] [place] [facility] [address] [id number] [place] [address] 23 Nov, 2013 [facility] [place] [facility] [address] [id number] [place] [address]- 2859 23 Nov, 2013 [facility] [place] [facility] [address] [id number] [place] [address]- 6903 18 Nov, 2013 [facility] [place] [facility] [address] [id number] [place] [address]- 2541 18 Nov, 2013 [facility] [place] [facility] [address] [id number] [place] [address]- 7169 17 Nov, 2013 [facility] [place] [facility] [address] [id number] [place] [address]- 8178 17 Nov, 2013 [facility] [place] [facility] [address] [id number] [place] [address]- 2098 11 Nov, 2013 [facility] [place] [facility] [address] [id number] [place] [address]- 5673 11 Nov, 2013 [facility] [place] [facility] [address] [id number] [place] [address]- 4814 Nov, [facility] [place] [facility] [address] [id number] [place] [address]- 9586 10 Nov, 2013 [facility] [place] [facility] [address] [id number] [place] [address]- 0051 08 Nov, 2013 [facility] [place] [facility] [address] [id number] [place] [address]- 3389 Nov, [facility] [place] [facility] [address] [id number] [place] [address]- 1051 Sep, [facility] [place] [facility] [address] [id number] [place] [address]- 8668 Sep, [facility] [place] [facility] [address] [id number] [place] [address]- 9047 Sep, [facility] [place] [facility] [address] [id number] [place] [address]- 3878 Sep, [facility] [place] [facility] [address] [id number] [place] [address]- 3438 Sep, [facility] [place] [facility] [address] [id number] [place] [address]- 9927 Sep, [facility] [place] [facility] [address] [id number] [place] [address]- 0733 Aug, [facility] [place] [facility] [address] [id number] [place] [address]- 5491 Aug, [facility] [place] [facility] [address] [id number] [place] [address]- 4419 Aug, [facility] [place] [facility] [address] [id number] [place] [address]- 0770 Aug, [facility] [place] [facility] [address] [id number] [place] [address]- 2810 Aug, [facility] [place] [facility] [address] [id number] [place] [address]- 6029 Aug, [facility] [place] [facility] [address] [id number] [place] [address]- 1732 Aug, [facility] [place] [facility] [address] [id number] [place] [address]- 5378 Aug, [facility] [place] [facility] [address] [id number] [place] [address]- 1916 Aug, [facility] [place] [facility] [address] [id number] [place] [address]- 8727 Aug, [facility] [place] [facility] [address] [id number] [place] [address]- 5542 Aug, [facility] [place] [facility] [address] [id number] [place] [address]- 7081 July, [facility] [place] [facility] [address] [id number] [place] [address]- 3290 July, [facility] [place] [facility] [address] [id number] [place] [address]- 7654 Jun, [facility] [place] [facility] [address] [id number] [place] [address]- 7802 Jun, [facility] [place] [facility] [address] [id number] [place] [address]- 7568 Jun, [facility] [place] [facility] [address] [id number] [place] [address]- 7127 Jun, [facility] [place] [facility] [address] [id number] [place] [address]- 6335 Jun, [facility] [place] [facility] [address] [id number] [place] [address]- 8872 Jun, [facility] [place] [facility] [address] [id number] [place] [address]- 7212 15 Jun, 2013 [facility] [place] [facility] [address] [id number] [place] [address]- 6697 15 Jun, 2013 [facility] [place] [facility] [address] [id number] [place] [address]- 7430 Jun, [facility] [place] [facility] [address] [id number] [place] [address]- 3233 Jun, [facility] [place] [facility] [address] [id number] [place] [address]- 9349 Jun, [facility] [place] [facility] [address] [id number] [place] [address]- 7426 Jun, [facility] [place] [facility] [address] [id number] [place] [address]- 1428 May, [facility] [place] [facility] [address] [id number] [place] [address]- 6778 May, [facility] [place] [facility] [address] [id number] [place] [address]- 4660 May, [facility] [place] [facility] [address] [id number] [place] [address]- 4343 May, [facility] [place] [facility] [address] [id number] [place] [address]- 2365 May, [facility] [place] [facility] [address] [id number] [place] [address]- 6677 May, [facility] [place] [facility] [address] [id number] [place] [address]- 7166 May, [facility] [place] [facility] [address] [id number] [place] [address]- 6508 May, [facility] [place] [facility] [address] [id number] [place] [address]- 6949 May, [facility] [place] [facility] [address] [id number] [place] [address] May, [facility] [place] [facility] [address] [id number] [place] [address]- 9244 May, [facility] [place] [facility] [address] [id number] [place] [address]- 6776 May, [facility] [place] [facility] [address] [id number] [place] [address]- 8356 Apr, [facility] [place] [facility] [address] [id number] [place] [address]- 7692 Apr, [facility] [place] [facility] [address] [id number] [place] [address]- 9624 Apr, [facility] [place] [facility] [address] [facility] [id number] [place] [address]- 9907 Apr, [facility] [place] [facility] [address] [facility] [id number] [place] [address]- 3793 Apr, [facility] [place] [facility] [address] [facility] [id number] [place] [address]- 6431 Apr, [facility] [place] [facility] [address] [id number] [place] [address]- 8130 Apr, [facility] [place] [facility] [address] [facility] [id number] [place] [address]- 9010 Apr, [facility] [place] [facility] [address] [facility] [id number] [place] [address]- 0837 Apr, [facility] [place] [facility] [address] [facility] [id number] [place] [address]- 6365 Apr, [facility] [place] [facility] [address] [facility] [id number] [place] [address]- 9812 Apr, [facility] [place] [facility] [address] [facility] [id number] [place] [address]- 8815 Apr, [facility] [place] [facility] [address] [facility] [id number] [place] [address]- 4683 Apr, [facility] [place] [facility] [address] [facility] [id number] [place] [address]- 1414 Apr, [facility] [address] [id number] [place] [address]- 2177 Apr, [facility] [place] [facility] [address] [id number] [place] [address]- 5876 Apr, 2013 [facility] [place] [facility] [address] [facility] [id number] [place] [address]- 5776 Apr, [facility] [place] [facility] [address] [id number] [place] [address]- 9586 Jan, [facility] [place] [facility] [address] [id number] [place] [address]- 9658 Jan, [facility] [place] [facility] [address] [id number] [place] [address]- 2424 Jan, [facility] [address] [facility] [id number] [place] [address]- 3398 Jan, [facility] [place] [facility] [address] [id number] [place] [address]- 1755 Jan, [facility] [place] [facility] [address] [facility] [id number] [place] [address]- 9557 Jan, [facility] [place] [facility] [address] [facility] [id number] [place] [address]- 9877 Jan, [facility] [place] [facility] [address] [facility] [id number] [place] [address]- 7079 Dec, [facility] [place] [facility] [address] [id number] [place] [address]- 2541 Dec, [facility] [place] [facility] [address] [id number] [place] [address]- 1933 Dec, [facility] [place] [facility] [address] [facility] [id number] [place] [address]- 4718 Nov, [facility] [place] [facility] [address] [facility] [id number] [place] [address]- 3504 10 Nov, 2012 [facility] [place] [facility] [address] [id number] [place] [address]- 7429 05 Nov, 2012 [facility] [place] [facility] [address] [id number] [place] [address]- 9014 Nov, [facility] [place] [facility] [address] [id number] [place] [address] 2548 Oct, [facility] [place] [facility] [address] [id number] [place] [address]- 6118 Oct, [facility] [place] [facility] [address] [id number] [place] [address]- 4450 Oct, [facility] [place] [facility] [address] [id number] [place] [address]- 5209 Oct, [facility] [place] [facility] [address] [id number] [place] [address]- 3759 Oct, [facility] [place] [facility] [address] [id number] [place] [address]- 1689 Sep, [facility] [place] [facility] [address] [id number] [place] [address]- 8146 Sep, [facility] [place] [facility] [address] [id number] [place] [address]- 0674 Sep, [facility] [place] [facility] [address] [id number] [place] [address]- 1593 Sep, [facility] [place] [facility] [address] [id number] [place] [address]- 7946 Sep, [facility] [place] [facility] [address] [id number] [place] [address]- 3635 Sep, [facility] [place] [facility] [address] [id number] [place] [address]- 6277 Sep, [facility] [place] [facility] [address] [id number] [place] [address] 254 Aug, [facility] [place] [facility] [address] [id number] [place] [address]- 0723 Aug, [facility] [address] [id number] [place] [address]- 8730 July, [facility] [address] [id number] [place] [address]- 4156 Jun, [facility] [address] [id number] [place] [address]- 9312 Jun, [facility] [place] [facility] [address] [id number] [place] [address]- 9435 Jun, [facility] [address] [id number] [place] [address]- 0551 Apr, [facility] [place] [facility] [address] [id number] [place] [address]- 9326 Apr, [facility] [address] [id number] [place] [address]- 8056 Apr, [facility] [place] [facility] [address] [id number] [place] [address]- 1651 Mar, [facility] [address] [id number] [place] [address]- 0135 Mar, [facility] [address] [id number] [place] [address]- 2078 Mar, [facility] [address] [id number] [place] [address]- 2587 Mar, [facility] [place] [facility] [address] [id number] [place] [address]- 8572 Mar, [facility] [place] [facility] [address] [id number] [place] [address]- 4062 14 Feb, 2012 [facility] [place] [facility] [address] [id number] [place] [address]- 3617 14 Feb, 2012 [facility] [place] [facility] [address] [id number] [place] [address]- 9653 Jan, [facility] [place] [facility] [address] [id number] [place] [address]- 8606 13 Jan, 2012 [facility] [place] [facility] [address] [id number] [place] [address]- 3617 13 Jan, 2012 [facility] [place] [facility] [address] [id number] [place] [address]- 3890 13 Jan, 2012 [facility] [place] [facility] [address] [id number] [place] [address]- 4756 07 Jan, 2012 [facility] [place] [facility] [address] [id number] [place] [address]- 2026 07 Jan, 2012 [facility] [place] [facility] [address] [id number] [place] [address], [place] [address]- 9646 06 Jan, 2012 [facility] [place] [facility] [address] [id number] [place] [address]- 6342 31 Dec, 2011 [facility] [place] [facility] [address] [id number] [place] [address]- 4361 31 Dec, 2011 [facility] [place] [facility] [address] [id number] [place] [address]- 5903 30 Dec, 2011 [facility] [place] [facility] [address] [id number] [place] [address]- 5935 30 Dec, 2011 [facility] [place] [facility] [address] [facility] [id number] [place] [address]- 0639 30 Dec, 2011 [facility] [place] [facility] [address] [id number] [place] [address]- 9540 30 Dec, 2011 [facility] [place] [facility] [address] [id number] [place] [address]- 6150 30 Dec, 2011 [facility] [place] [facility] [address] [id number] [place] [address]- 9096 30 Dec, 2011 [facility] [place] [facility] [address] [facility] [id number] [place] [address]- 0352 Dec, [facility] [place] [facility] [address] [id number] [place] [address]- 6965 Dec, [facility] [address] [id number] [place] [address]- 7923 Oct, [facility] [place] [facility] [address] [id number] [place] [address]- 1488 Oct, [facility] [place] [facility] [address] [id number] [place] [address]- 1170 Aug, [facility] [place] [facility] [address] [id number] [place] [address]- 7213 Aug, [facility] [address] [id number] [place] [address]- 7570 July, [facility] [place] [facility] [address] [id number] [place] [address]- 1428 Jun, [facility] [place] [facility] [address] [id number] [place] [address]- 6696 Jun, [facility] [address] [id number] [place] [address]- 2283 May, [facility] [place] [facility] [address] [id number] [place] [address]- 6584 Apr, [facility] [place] [facility] [address] [id number] [place] [address]- 3140 Apr, [facility] [place] [facility] [address] [id number] [place] [address]- 8276 Mar, [facility] [place] [facility] [address] [id number] [place] [address]- 7669 Mar, [facility] [place] [facility] [address] [id number] [place] [address]- 6185 Feb, [facility] [place] [facility] [address] [id number] [place] 9082 15 Feb, 2011 [facility] [place] [facility] [address] [id number] [place] [address]- 1993 13 Feb, 2011 [facility] [place] [facility] [id number] [place] [address]- 2184 13 Feb, 2011 [facility] [place] [id number] [place] [address]- 2943 Jan, [facility] [place] [id number] [place] [address]153 Dec, [facility] [place] [id number] [place] [address]- 4093 Feb, [facility] [place] [id number] [place] [address]- 7517 Feb, [facility] [place] [id number] [place] [address]- 3864 Feb, [facility] [place] [id number] [place] [address]- 7860 Feb, [facility] [place] [id number] [place] [address] 46840- 5677 Dec, [facility] [place] [id number] [place] [address]- 4123 Dec, [facility] [place] [id number] [place] [address]- 8812 Oct, [facility] [place] [id number] [place] [address]- 9295 Jun, [facility] [place] [id number] [place] [address]- 1226 Feb, [facility] [place] [id number] [place] [address]- 8778 Feb, [facility] [place] [id number] [place] [address]- 9492 Feb, [facility] [place] [id number] [place] [address]- 9512 Dec, IMMUNIZATIONS No Known Immunizations SOCIAL HISTORY Never Assessed REASON FOR VISIT Thyroid Biopsy Results PLAN OF CARE VITAL SIGNS MEDICATIONS Unknown [...] 1987 Surgical History left shoulder surgery 09/14/17 Hospitalization History Ruptured Ovarian Cyst with abd bleeding 11/2009
--- OUTSIDE RECORDS SUMMARY | 2018-08-02 08:45 | XMS REPORT ---
Author Author KIANA ASHLEY [facility] Address [address] [place] [address] Care Team Providers Care Sole Rougher Name Role Phone ELMO BRUNOY Unavailable PROBLEMS Type Condition ICD9-CM Code CEU66-DN Code Onset Dates Condition Status SNOMED Code Problem Presence of IVC filter Z95.828 Active 579714169 Problem Pelvic pain R10.2 Active 45860052 Problem 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 Active 134018372 Problem Obstructive sleep apnea G47.33 Active 59375680 Problem Morbid obesity E66.01 Active 004790107 Problem Excessive daytime sleepiness G47.19 Active 136535988933 Problem Peripheral edema R60.9 Active 056697206 Problem Thyroid nodule E04.1 Active 434443330 Problem Gastroesophageal reflux disease, esophagitis presence not specified K21.9 Active 500546639 Problem History of DVT (deep vein thrombosis) Z86.718 Active 396108041 Problem Hypertriglyceridemia E78.1 Active 919432004 Problem 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 Active 420787703 Problem Factor V Leiden D68.51 Active 528123216 Problem Generalized anxiety disorder F41.1 Active 317637072 ALLERGIES No Information ENCOUNTERS Encounter Location Date Diagnosis [facility] [id number] [address] Dec, [facility] [address], [place] [address] Dec, [facility] [id number] [place] [address] 04705- 7500 Nov, [facility] [id number], [place] [address] Nov, Obstructive sleep apnea G47.33 ; Morbid obesity E66.01 and Gastroesophageal reflux disease, esophagitis presence not specified K21.9 [facility] [address] [id number] [id number] 06 Nov, 2017 Encounter for examination of eyes and vision without abnormal findings Z01.00 [facility] [id number] [place] [address] 32674- 6781 Oct, Thyroid nodule E04.1 and Screening for breast cancer Z12.31 [facility] [address] 57097- 8888 23 Oct, 2017 History of DVT (deep vein thrombosis) Z86.718 ; Thyroid nodule E04.1 and Gastroesophageal reflux disease, esophagitis presence not specified K21.9 [facility] [facility] [address] 75243- 1019 Oct, [facility] [address] 96545- 0267 Sep, [facility] [address] 66077- 3261 Aug, [facility] [id number] [place] [address] 82108- 3517 Aug, [facility] [id number] [place] [address] 86596- 0647 Aug, Acute pain of left shoulder M25.512 and Thyroid nodule E04.1 [facility] [facility] [address] 30413- 9654 July, Superior glenoid labrum lesion of left shoulder, subsequent encounter S43.432D [facility] [id number] [place] [address] 25276- 1616 Jun, History of DVT (deep vein thrombosis) Z86.718 [facility] [id number] [place] [address] 56963- 4045 Jun, History of DVT (deep vein thrombosis) Z86.718 [facility] [id number] [place] [address] 55037- 4607 Jun, Impingement syndrome, shoulder, left M75.42 [facility] [id number] [place] [address] 45193- 0304 May, Subacromial bursitis of left shoulder joint M75.52 [facility] [id number] [place] [address] 03260- 0645 May, [facility] [address] 56468- 7804 May, Hypertriglyceridemia E78.1 ; long-term (current) 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 Z79.01 and Excessive daytime sleepiness G47.19 [facility] [id number] [place] [address] 56317- 6743 May, History of DVT (deep vein thrombosis) Z86.718 ; Generalized anxiety disorder F41.1 ; Hypertriglyceridemia E78.1 ; long-term (current) 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 Z79.01 ; Subacromial bursitis of left shoulder joint M75.52 and Excessive daytime sleepiness G47.19 [facility] [id number] [place] [address] 96640- 8900 May, [facility] [id number] [place] [address] 26816- 1321 May, long-term (current) 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 Z79.01 [facility] [id number] [place] [address] 68461- 9088 Apr, long-term (current) 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 Z79.01 [facility] [id number] [place] [address] 21258- 7173 Apr, long-term (current) 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 Z79.01 [facility] [id number] [place] [address] 13524- 0233 Apr, 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 [facility] [id number] [place] [address] 14966- 9017 Apr, [facility] [facility] [address] [place] [address] 07566- 2546 16 Apr, 2017 long-term (current) 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 Z79.01 [facility] [address] [place] [address] 15527 2546 13 Apr, 2017 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 [facility] [address] [place] [address] 99823 2546 Apr, long-term (current) 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 Z79.01 [facility] [id number] [place] [address] 35325 2546 Apr, 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 [facility] [id number] [place] [address] 30199 2546 Apr, long-term (current) 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 Z79.01 [facility] [id number] [place] [address] 34129 2546 Apr, 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 [facility] [id number] [place] [address] 53114 2546 Mar, 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 [facility] [address] [place] [address] 35372 2546 Mar, [facility] [id number] [place] [address] 33881 2546 Mar, 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 [facility] [address] [place] [address] [id number] Jan, Dental examination Z01.20 [facility] [id number] [place] [address] [id number] Jan, [facility] [address] [place] [address] 07468 2546 Jan, 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 [facility] [address] [place] [address] 00258- 9400 Jan, History of DVT (deep vein thrombosis) Z86.718 [facility] [id number] [place] [address] 32948- 0584 Jan, Generalized anxiety disorder F41.1 and Peripheral edema R60.9 [facility] [id number] [place] [address] 40892- 8412 Nov, History of DVT (deep vein thrombosis) Z86.718 [facility] [id number] [place] [address] 29697- 0698 Nov, long-term (current) 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 Z79.01 [facility] [id number] [place] [address] 98323 -0161 Nov, Acute non-recurrent maxillary sinusitis J01.00 [facility] [id number] [place] [address] 79801- 3152 Oct, 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 [facility] [id number] [place] [address] 88010- 8732 Oct, Personal history of venous thrombosis and embolism Z86.718 [facility] [id number] [place] [address] 08054- 9817 Sep, [facility] [id number] [place] [address] 80346- 6672 Sep, Personal history of venous thrombosis and embolism Z86.718 [facility] [address] [place] [address] 62605- 9661 Sep, long-term (current) 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 Z79.01 [facility] [id number] [place] [address] 67914- 6780 Sep, 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 [facility] [address] [place] [address] 58401- 3997 Sep, Generalized anxiety disorder F41.1 and History of DVT (deep vein thrombosis) Z86.718 [address] [place] [address] 46140- 5929 Aug, History of DVT (deep vein thrombosis) Z86.718 ; Generalized anxiety disorder F41.1 ; long-term (current) 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 Z79.01 ; Pelvic pain R10.2 ; Hypertriglyceridemia E78.1 ; Excessive daytime sleepiness G47.19 ; Colon cancer screening Z12.11 ; Screening for breast cancer Z12.39 ; Peripheral edema R60.9 and Gastroesophageal reflux disease, esophagitis presence not specified K21.9 [address] [address] 44036- 6009 Aug, [facility] [facility] [address] 78901- 5373 July, [facility] [address] 92504- 2941 July, History of DVT (deep vein thrombosis) Z86.718 [facility] [address] 08456- 8486 Jun, Generalized anxiety disorder F41.1 [address] [address] 68126- 1837 Jun, History of DVT (deep vein thrombosis) Z86.718 [facility] [facility] [address] 30051- 7065 Jun, History of DVT (deep vein thrombosis) Z86.718 [facility] [facility] [address] 76933- 9545 Jun, History of DVT (deep vein thrombosis) Z86.718 [facility] [facility] [address] 98899- 8466 Jun, History of DVT (deep vein thrombosis) Z86.718 [address] [address] 59836- 4340 May, History of DVT (deep vein thrombosis) Z86.718 [facility] [id number] [place] [address] 20066- 0863 May, 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 [facility] [id number] [place] [address] 32367- 0007 May, long-term (current) 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 Z79.01 [facility] [address] 92800- 3932 May, History of DVT (deep vein thrombosis) Z86.718 [facility] [address] 93054 -3633 27 Apr, 2016 Bacterial conjunctivitis of left eye H10.9 and H/O motion sickness Z87.898 [place] [address] 91676- 1885 24 Apr, 2016 History of DVT (deep vein thrombosis) Z86.718 [facility] [id number] [place] [address] 44175- 4371 23 Apr, 2016 History of DVT (deep vein thrombosis) Z86.718 [facility] [id number] [place] [address] 73127- 6235 15 Apr, 2016 History of DVT (deep vein thrombosis) Z86.718 [facility] [id number] [place] [address] 06218- 9746 14 Apr, 2016 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 [address] [facility] [id number] [place] [address] 42120- 4783 Mar, [facility] [address] 27412- 3554 Mar, long-term (current) 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 Z79.01 [facility] [facility] [id number] [place] [address] 84627- 3055 Mar, Hypertriglyceridemia E78.1 and 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 [place] [address] [place] [address] 91552- 3796 Feb, 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 [place] [address] [place] [address] 43418 2546 Feb, long-term (current) 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 Z79.01 [facility] [facility] [id number] [place] [address] 85544 2546 Feb, 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 [facility] [facility] [id number] [place] [address] 27478- 1596 Dec, [facility] [id number] [place] [address] 68342- 5776 Nov, [facility] [id number] [place] [address] 63371- 5028 Nov, History of DVT (deep vein thrombosis) Z86.718 ; Tremulousness R25.1 ; Generalized anxiety disorder F41.1 ; Peripheral edema R60.9 and Hypertriglyceridemia E78.1 [facility] [address] [place] [address] 60285- 4599 Oct, History of DVT (deep vein thrombosis) Z86.718 [facility] [address] [place] [address] 81504 2546 Oct, [facility] [facility] [address] [place] [address] 45031- 2546 Sep, History of DVT (deep vein thrombosis) Z86.718 [facility] [id number] [place] [address] 77377 2546 Sep, 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 [facility] [facility] [address], [place] [address]- 2546 July, [facility] [facility] [address] [place] [address]- 4734 July, 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 [facility] [address] 74686- 7207 July, 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 [facility] [id number] [place] [address] 04045- 4826 Jun, long-term (current) 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 Z79.01 [facility] [address] 06525 -4861 Jun, Coccyx pain M53.3 ; Encounter for therapeutic drug level monitoring Z51.81 and long-term current use 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.01 [facility] [id number] [place] [address] 30162- 8719 May, Abnormal mammogram R92.8 [facility] [address] 07719 -8421 May, [facility] [address] 69643 -6446 May, Acute vaginitis N76.0 and Encounter for other screening for malignant neoplasm of breast Z12.39 [facility] [id number] [place] [address] 58483- 5707 Apr, [facility] [facility] [id number] [place] [address] 74373- 9679 Apr, [facility] [id number] [place] [address] 69256- 0880 Apr, Peripheral edema R60.9 [facility] [facility] [address] 07133- 3779 Apr, 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 [facility] [id number] [place] [address] 74214- 0738 Apr, Peripheral edema R60.9 and 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 [facility] [facility] [id number] [place] [address] 11122 2546 Apr, 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 [facility] [facility] [id number] [place] [address] 71770 2546 Apr, [facility] [address] 51653 2546 Apr, 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 [facility] [facility] [id number] [place] [address] 69567 2546 Apr, Peripheral edema R60.9 [facility] [address] 15350- 5933 Mar, long-term (current) 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 Z79.01 [facility] [facility] [address] 55381 2546 Mar, 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 and Hypertriglyceridemia E78.1 [facility] [address] 15393- 2708 Mar, long-term (current) 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 Z79.01 [facility] [id number] [place] [address] 80029- 1056 Mar, 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 [facility] [id number] [place] [address] 80541 2546 Mar, [facility] [id number] [place] [address] 66772 2546 Mar, 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 ; Hypertriglyceridemia E78.1 ; Personal history of venous thrombosis and embolism Z86.718 and Lump R22.9 [facility] [id number] [place] [address] 12323 2546 Mar, Personal history of venous thrombosis and embolism Z86.718 [facility] [address], [place] [address]- 7534 Mar, Personal history of venous thrombosis and embolism Z86.718 [facility] [address] [place] [address] 008011- 2435 Mar, [facility] [address] [place] [address] 42336- 8085 Dec, Personal history of venous thrombosis and embolism Z86.718 [facility] [address] [place] [address] 99455- 5855 Dec, Personal history of venous thrombosis and embolism V12.51 [facility] [id number] [place] [address] 40338- 6892 Nov, Personal history of venous thrombosis and embolism V12.51 [facility] [facility] [id number] [place] [address] 83430- 4683 Nov, Personal history of venous thrombosis and embolism V12.51 [facility] [address] [place] [address] 23677- 0308 Nov, Personal history of venous thrombosis and embolism V12.51 [facility] [address] [place] [address] 92076- 9565 Nov, Personal history of venous thrombosis and embolism V12.51 [facility] [address] [place] [address] 63967- 6615 Nov, [facility] [address] [place] [address] 39361- 7481 Oct, Dysuria 788.1 [facility] [id number] [place] [address] 07673- 4032 Oct, Personal history of venous thrombosis and embolism V12.51 [facility] [address] [place] [address] 29521- 6126 Oct, [facility] [id number] [place] [address] 69067- 7794 Oct, Personal history of venous thrombosis and embolism V12.51 [facility] [address]- 0926 Sep, Personal history of venous thrombosis and embolism V12.51 [facility] [id number], [place] [address]- 9241 Sep, Personal history of venous thrombosis and embolism V12.51 [facility] [address]- 1555 Aug, Personal history of venous thrombosis and embolism V12.51 [facility] [address]- 7465 Aug, Personal history of venous thrombosis and embolism V12.51 [facility] [address] [address]- 1662 Aug, Personal history of venous thrombosis and embolism V12.51 [facility] [id number], [place] [address]- 6339 July, Generalized anxiety disorder 300.02 ; Abdominal pain, left lower quadrant 789.04 and Personal history of venous thrombosis and embolism V12.51 [facility] [id number], [place] [address]- 4630 Jun, [facility] [address], [place] [address]- 3496 Jun, [facility] [id number] [address] 5334 May, [facility] [address] 5833 May, [facility] [address] 0712 May, [facility] [id number] [address]- 8690 May, [facility] [place] [facility] [address] [id number] [place] [address]- 4815 May, [facility] [place] [facility] [address] [id number] [place] [address]- 6377 May, [facility] [place] [facility] [address] [id number] [place] [address]- 7069 May, [facility] [place] [facility] [address] [id number] [place] [address]- 2210 May, [facility] [place] [facility] [address] [id number] [place] [address]- 6014 Apr, [facility] [place] [facility] [address] [id number] [place] [address]- 1602 Apr, [facility] [place] [facility] [address] [id number] [place] [address]- 1074 Apr, [facility] [place] [facility] [address] [id number] [place] [address]- 9605 Apr, [facility] [place] [facility] [address] [id number] [place] [address]- 6663 Apr, [facility] [place] [facility] [address] [id number] [place] [address]- 4697 Mar, [facility] [place] [facility] [address] [id number] [place] [address]- 2161 Mar, [facility] [place] [facility] [address] [id number] [place] [address]- 5984 Mar, [facility] [place] [facility] [address] [id number] [place] [address]- 6687 Mar, [facility] [place] [facility] [address] [id number] [place] [address]- 8857 Mar, [facility] [place] [facility] [address] [id number] [place] [address]- 6305 Mar, [facility] [place] [facility] [address] [id number] [place] [address]- 6051 Feb, [facility] [place] [facility] [address] [id number] [place] [address]- 1888 Feb, [facility] [place] [facility] [address] [id number] [place] [address]- 3530 Feb, [facility] [place] [facility] [address] [id number] [place] 8216 Feb, [facility] [place] [facility] [address] [id number] [place] [address]- 3742 Feb, [facility] [place] [facility] [address] [id number] [place] 0789 Feb, [facility] [place] [facility] [address] [id number] [place] 7757 Feb, [facility] [place] [facility] [address] [id number] [id number] [address] Feb, [facility] [place] [facility] [address] [id number] [place] [address] Feb, [facility] [place] [facility] [address] [id number] [place] [address] Feb, [facility] [place] [facility] [address] [id number] [place] [address] Jan, [facility] [place] [facility] [address] [id number] [place] [address] Jan, [facility] [place] [facility] [address] [id number] [place] [address] Jan, [facility] [place] [facility] [address] [id number] [place] [address] Jan, [facility] [place] [facility] [address] [id number] [place] [address] Jan, [facility] [place] [facility] [address] [id number] [place] [address] Jan, [facility] [place] [facility] [address] [id number] [place] [address] Jan, [facility] [place] [facility] [address] [id number] [place] [address] Jan, [facility] [place] [facility] [address] [id number] [place] [address] Jan, [facility] [place] [facility] [address] [id number] [place] [address] Jan, [facility] [place] [facility] [address] [id number] [place] [address] Dec, [facility] [place] [facility] [address] [id number] [place] [address] Dec, [facility] [place] [facility] [address] [id number] [place] [address] Dec, [facility] [place] [facility] [address] [id number] [place] [address] Dec, [facility] [place] [facility] [address] [id number] [place] [address] Dec, [facility] [place] [facility] [address] [id number] [place] [address] Dec, [facility] [place] [facility] [address] [id number] [place] [address] Dec, [facility] [place] [facility] [address] [id number] [place] [address] Dec, [facility] [place] [facility] [address] [id number] [place] [address] Dec, [facility] [place] [facility] [address] [id number] [place] [address] Dec, [facility] [place] [facility] [address] [id number] [place] [address] Dec, [facility] [place] [facility] [address] [id number] [place] [address] Dec, [facility] [place] [facility] [address] [id number] [place] [address] 3[address] Dec, [facility] [place] [facility] [address] [id number] [place] [address] 1716 Dec, [facility] [place] [facility] [address] [id number] [place] [address] 2536 Dec, [facility] [place] [facility] [address] [id number] [place] [address]- 7659 30 Nov, 2013 [facility] [place] [facility] [address] [id number] [place] [address] 6550 30 Nov, 2013 [facility] [place] [facility] [address] [id number] [place] [address]- 0612 Nov, 2013 [facility] [place] [facility] [address] [id number] [place] [address] 2060 Nov, 2013 [facility] [place] [facility] [address] [id number] [place] [address]- 6162 24 Nov, 2013 [facility] [place] [facility] [address] [id number] [place] [address]- 4563 24 Nov, 2013 [facility] [place] [facility] [address] [id number], [place] [address] 23 Nov, 2013 [facility] [place] [facility] [address] [id number], [place] [address] 23 Nov, 2013 [facility] [place] [facility] [address] [id number] [address] 9[address] 18 Nov, 2013 [facility] [place] [facility] [address] [id number] [place] [address]- 2545 18 Nov, 2013 [facility] [place] [facility] [address] [id number], [place] [address] 7307 17 Nov, 2013 [facility] [place] [facility] [address] [id number], [place] [address] 6[address] 17 Nov, 2013 [facility] [place] [facility] [address] [id number], [place] [address] 8987 11 Nov, 2013 [facility] [place] [facility] [address] [id number] [place] [address]- 2067 11 Nov, 2013 [facility] [place] [facility] [address] [id number] [place] [address]- 0974 Nov, [facility] [place] [facility] [address] [id number] [place] [address]- 2016 10 Nov, 2013 [facility] [place] [facility] [address] [id number] [place] [address]- 0621 08 Nov, 2013 [facility] [place] [facility] [address] [id number] [place] [address]- 0441 Nov, [facility] [place] [facility] [address] [id number] [place] [address]- 4518 Sep, [facility] [place] [facility] [address] [id number] [place] [address]- 3069 Sep, [facility] [place] [facility] [address] [id number] [place] [address]- 3016 Sep, [facility] [place] [facility] [address] [id number] [place] [address]- 7741 Sep, [facility] [place] [facility] [address] [id number] [place] [address]- 2933 Sep, [facility] [place] [facility] [address] [id number] [place] [address]- 3133 Sep, [facility] [place] [facility] [address] [id number] [place] [address]- 7215 Aug, [facility] [place] [facility] [address] [id number] [place] [address]- 9950 Aug, [facility] [place] [facility] [address] [id number] [place] [address]- 9493 Aug, [facility] [place] [facility] [address] [id number] [place] [address]- 0663 Aug, [facility] [place] [facility] [address] [id number] [place] [address]- 6556 Aug, [facility] [place] [facility] [address] [id number] [place] [address]- 4323 Aug, [facility] [place] [facility] [address] [id number] [place] [address]- 1630 Aug, [facility] [place] [facility] [address] [id number] [place] [address]- 7190 Aug, [facility] [place] [facility] [address] [id number] [place] [address]- 6179 Aug, [facility] [place] [facility] [address] [id number] [place] [address]- 5424 Aug, [facility] [place] [facility] [address] [id number] [place] [address]- 9077 Aug, [facility] [place] [facility] [address] [id number] [place] [address]- 7057 July, [facility] [place] [facility] [address] [id number] [place] [address]- 2648 July, [facility] [place] [facility] [address] [id number] [place] [address]- 9476 Jun, [facility] [place] [facility] [address] [id number] [place] [address]- 8747 Jun, [facility] [place] [facility] [address] [id number] [place] [address]- 2594 Jun, [facility] [place] [facility] [address] [id number] [place] [address]- 6692 Jun, [facility] [place] [facility] [address] [id number] [place] [address]- 3111 Jun, [facility] [place] [facility] [address] [id number] [place] [address]- 6737 Jun, [facility] [place] [facility] [address] [id number] [place] [address]- 2201 15 Jun, 2013 [facility] [place] [facility] [address] [id number] [place] [address]- 5448 15 Jun, 2013 [facility] [place] [facility] [address] [id number] [place] [address]- 1567 Jun, [facility] [place] [facility] [address] [id number] [place] [address]- 8719 Jun, [facility] [place] [facility] [address] [id number] [place] [address]- 7579 Jun, [facility] [place] [facility] [address] [id number] [place] [address]- 7137 Jun, [facility] [place] [facility] [address] [id number] [place] [address]- 4641 May, [facility] [place] [facility] [address] [id number] [place] [address]- 7990 May, [facility] [place] [facility] [address] [id number] [place] [address]- 7447 May, [facility] [place] [facility] [address] [id number] [place] [address]- 7028 May, [facility] [place] [facility] [address] [id number] [place] [address]- 7581 May, [facility] [place] [facility] [address] [id number] [place] [address]- 2371 May, [facility] [place] [facility] [address] [id number] [place] [address]- 8828 May, [facility] [place] [facility] [address] [id number] [place] [address]- 6863 May, [facility] [place] [facility] [address] [id number] [place] [address]- 8089 May, [facility] [place] [facility] [address] [id number] [place] [address]44 May, [facility] [place] [facility] [address] [id number] [place] [address]- 0002 May, [facility] [place] [facility] [address] [id number] [place] [address]- 2350 May, [facility] [place] [facility] [address] [id number] [place] [address]- 3586 Apr, [facility] [place] [facility] [address] [id number] [place] [address]- 6482 Apr, [facility] [place] [facility] [address] [id number] [place] [address]- 7599 Apr, [facility] [place] [facility] [address] [facility] [id number] [place] [address]- 5626 Apr, [facility] [place] [facility] [address] [facility] [id number] [place] [address]- 7912 Apr, [facility] [place] [facility] [address] [facility] [id number] [place] [address]- 8638 Apr, [facility] [place] [facility] [address] [id number] [place] [address]- 0414 Apr, [facility] [place] [facility] [address] [facility] [id number] [place] [address]- 3578 Apr, [facility] [place] [facility] [address] [facility] [id number] [place] [address]- 2601 Apr, [facility] [place] [facility] [address] [facility] [id number], [place] [address]- 2171 Apr, [facility] [place] [facility] [address] [facility] [id number] [place] [address]- 1577 Apr, [facility] [place] [facility] [address] [facility] [id number] [place] [address]- 3061 Apr, [facility] [place] [facility] [address] [facility] [id number] [place] [address]- 6908 Apr, [facility] [place] [facility] [address] [facility] [id number], [place] [address]- 7570 Apr, [facility] [address] [id number] [place] [address]- 9218 Apr, [facility] [place] [facility] [address] [id number] [place] [address]- 1106 Apr, 2013 [facility] [place] [facility] [address] [facility] [id number] [place] [address]- 5906 Apr, [facility] [place] [facility] [address] [id number] [place] [address]- 0692 Jan, [facility] [place] [facility] [address] [id number] [place] [address]- 0013 Jan, [facility] [place] [facility] [address] [id number] [place] [address]- 5882 Jan, [facility] [address] [facility] [id number], [place] [address]- 0343 Jan, [facility] [place] [facility] [address] [id number] [place] [address]- 5053 Jan, [facility] [place] [facility] [address] [facility] [id number] [place] [address]- 7994 Jan, [facility] [place] [facility] [address] [facility] [id number] [place] [address]- 9644 Jan, [facility] [place] [facility] [address] [facility] [id number] [place] [address]- 7519 Dec, [facility] [place] [facility] [address] [id number], [place] [address]- 2542 Dec, [facility] [place] [facility] [address] [id number], [place] [address]- 4240 Dec, [facility] [place] [facility] [address] [facility] [id number], [place] [address]- 4929 Nov, [facility] [place] [facility] [address] [facility] [id number][place] [address]- 8357 10 Nov, 2012 [facility] [place] [facility] [address] [id number] [place] [address]- 8742 05 Nov, 2012 [facility] [place] [facility] [address] [id number] [place] [address]- 4631 Nov, [facility] [place] [facility] [address] [id number] [place] [address] 2545 Oct, [facility] [place] [facility] [address] [id number] [place] [address]- 3178 Oct, [facility] [place] [facility] [address] [id number] [place] [address]- 0167 Oct, [facility] [place] [facility] [address] [id number] [place] [address]- 5143 Oct, [facility] [place] [facility] [address] [id number] [place] [address]- 3936 Oct, [facility] [place] [facility] [address] [id number] [place] [address]- 3526 Sep, [facility] [place] [facility] [address] [id number] [place] [address]- 0214 Sep, [facility] [place] [facility] [address] [id number] [place] [address]- 2531 Sep, [facility] [place] [facility] [address] [id number] [place] [address]- 2528 Sep, [facility] [place] [facility] [address] [id number] [place] [address]- 9442 Sep, [facility] [place] [facility] [address] [id number] [place] [address]- 9625 Sep, [facility] [place] [facility] [address] [id number] [place] [address]- 8331 Sep, [facility] [place] [facility] [address] [id number] [place] [address] 2545 Aug, [facility] [place] [facility] [address] [id number] [place] [address]- 4679 Aug, [facility] [address] [id number] [place] [address]- 9528 July, [facility] [address] [id number] [place] [address]- 1767 Jun, [facility] [address] [id number] [place] [address]- 3057 Jun, [facility] [place] [facility] [address] [id number] [place] [address]- 1445 Jun, [facility] [address] [id number] [place] [address]- 0785 Apr, [facility] [place] [facility] [address] [id number] [place] [address]- 3125 Apr, [facility] [address] [id number] [place] [address]- 4576 Apr, [facility] [place] [facility] [address] [id number] [place] [address]- 5144 Mar, [facility] [address] [id number] [place] [address]- 0823 Mar, [facility] [address] [id number] [place] [address]- 1550 Mar, [facility] [address] [id number] [place] [address]- 4063 Mar, [facility] [place] [facility] [address] [id number], [place] [address]- 1853 Mar, [facility] [place] [facility] [address] [id number] [place] [address]- 8137 14 Feb, 2012 [facility] [place] [facility] [address] [id number] [place] [address]- 1299 14 Feb, 2012 [facility] [place] [facility] [address] [id number] [place] [address]- 5058 Jan, [facility] [place] [facility] [address] [id number] [place] [address]- 7303 13 Jan, 2012 [facility] [place] [facility] [address] [id number] [place] [address]- 0391 13 Jan, 2012 [facility] [place] [facility] [address] [id number] [place] [address]- 4015 13 Jan, 2012 [facility] [place] [facility] [address] [id number] [place] [address]- 9896 07 Jan, 2012 [facility] [place] [facility] [address] [id number] [place] [address]- 8318 07 Jan, 2012 [facility] [place] [facility] [address] [id number] [place] [address], [place] [address]- 2117 06 Jan, 2012 [facility] [place] [facility] [address] [id number] [place] [address]- 9635 31 Dec, 2011 [facility] [place] [facility] [address] [id number] [place] [address]- 3853 31 Dec, 2011 [facility] [place] [facility] [address] [id number] [place] [address]- 8131 30 Dec, 2011 [facility] [place] [facility] [address] [id number] [place] [address]- 3627 30 Dec, 2011 [facility] [place] [facility] [address] [facility] [id number] [place] [address]- 5864 30 Dec, 2011 [facility] [place] [facility] [address] [id number] [place] [address]- 2144 30 Dec, 2011 [facility] [place] [facility] [address] [id number] [place] [address]- 6167 30 Dec, 2011 [facility] [place] [facility] [address] [id number] [place] [address]- 9896 30 Dec, 2011 [facility] [place] [facility] [address] [facility] [id number] [place] [address]- 3463 Dec, [facility] [place] [facility] [address] [id number] [place] [address]- 1719 Dec, [facility] [address] [id number] [place] [address]- 4951 Oct, [facility] [place] [facility] [address] [id number] [place] [address]- 7278 Oct, [facility] [place] [facility] [address] [id number] [place] [address]- 4693 Aug, [facility] [place] [facility] [address] [id number] [place] [address]- 0961 Aug, [facility] [address] [id number] [place] [address]- 3543 July, [facility] [place] [facility] [address] [id number] [place] [address]- 4122 Jun, [facility] [place] [facility] [address] [id number] [place] [address]- 6124 Jun, [facility] [address] [id number] [place] [address]- 7240 May, [facility] [place] [facility] [address] [id number] [place] [address]- 7723 Apr, [facility] [place] [facility] [address] [id number] [place] [address]- 7485 Apr, [facility] [place] [facility] [address] [id number] [place] [address]- 6487 Mar, [facility] [place] [facility] [address] [id number], [place] [address]- 2894 Mar, [facility] [place] [facility] [address] [id number] [place] [address]- 6962 Feb, [facility] [place] [facility] [address] [id number] [place] 1423 15 Feb, 2011 [facility] [place] [facility] [address] [id number] [place] [address]- 7761 13 Feb, 2011 [facility] [place] [facility] [address] 8684 13 Feb, 2011 [facility] [id number], [place] [address]- 6440 Jan, [facility] [id number] 5720 Dec, [facility] [id number], [place] [address]- 2943 Feb, [facility] [id number], [place] [address]- 7296 Feb, [facility] [id number] [place] [address]- 1248 Feb, [facility] [id number], [place] [address]- 1411 Feb, [facility] [id number] [place] [address]- 0416 Dec, [facility] [id number], [place] [address]- 5796 Dec, [facility] [id number], [place] [address]- 6285 Oct, [facility] [address], [place] [address]- 4318 Jun, [facility] [address], [place] [address]- 6678 Feb, [facility] [id number], [place] [address]- 5913 Feb, [facility] [id number], [place] [address]- 3751 Feb, [facility] [id number], [place] [address]- 7297 Dec, IMMUNIZATIONS No Known Immunizations SOCIAL HISTORY Never Assessed REASON FOR VISIT Requests return call PLAN OF CARE VITAL SIGNS MEDICATIONS Unknown Medications RESULTS No Results PROCEDURES No Known procedures INSTRUCTIONS MEDICATIONS ADMINISTERED No Known Medications MEDICAL (GENERAL) HISTORY Type Description Date Medical History obesity Medical History Hematologic disorder factor clotting problem Medical History DVT's Medical History Torn Rotator Cuff, repaired 09/23/17 Surgical History Lap Band 10/2012 Surgical History section 1985, 1987 Surgical History cholecystectomy Surgical History [place] Filter 06/2009 Surgical History Left leg exploratory surgery r/t clot 1987 Surgical History left shoulder surgery 09/14/17 Hospitalization History Ruptured Ovarian Cyst with abd bleeding 11/2009
[2018-08-02] MEDS ORDERED: LACTATED RINGERS 1,000 ML IV PRN (08:46)
--- OUTSIDE RECORDS SUMMARY | 2018-08-02 08:46 | XMS REPORT ---
Author Author ASHLEY BRUNO [facility] Address [address] [place] [address] Care Team Providers Care Civil Drafting Technician Name Role Phone ASHLEY BRUNO Unavailable PROBLEMS ALLERGIES No Information ENCOUNTERS IMMUNIZATIONS No Known Immunizations SOCIAL HISTORY No smoking Hx information available REASON FOR VISIT PLAN OF CARE VITAL SIGNS MEDICATIONS Unknown Medications RESULTS No Results PROCEDURES No Known procedures INSTRUCTIONS MEDICATIONS ADMINISTERED No Known Medications MEDICAL (GENERAL) HISTORY
--- OUTSIDE RECORDS SUMMARY | 2018-08-02 08:46 | XMS REPORT ---
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 Name Role Phone FARHAT CHAVEZ Unavailable PROBLEMS Type Condition ICD9-CM Code CYL95-UN Code Onset Dates Condition Status SNOMED Code Problem Presence of IVC filter Z95.828 Active 372524870 Problem Pelvic pain R10.2 Active 99980417 Problem 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 Active 189461849 Problem Obstructive sleep apnea G47.33 Active 10120517 Problem Morbid obesity E66.01 Active 057548298 Problem Excessive daytime sleepiness G47.19 Active 679395017712 Problem Peripheral edema R60.9 Active 231680743 Problem Thyroid nodule E04.1 Active 598806730 Problem Gastroesophageal reflux disease, esophagitis presence not specified K21.9 Active 470699416 Problem History of DVT (deep vein thrombosis) Z86.718 Active 878504922 Problem Hypertriglyceridemia E78.1 Active 932758093 Problem rn long term care (current) use of anticoagulants Z79.01 Active 584146257 Problem Factor V Leiden D68.51 Active 365365718 Problem Generalized anxiety disorder F41.1 Active 754992073 ALLERGIES No Information ENCOUNTERS Encounter Location Date Diagnosis [facility] [address] [address] Nov, [facility] [id number] [place] [address] 13055- 3577 Nov, Obstructive sleep apnea G47.33 ; Morbid obesity E66.01 and Gastroesophageal reflux disease, esophagitis presence not specified K21.9 [facility] [address] [place] [address] [id number] Nov, Encounter for examination of eyes and vision without abnormal findings Z01.00 [facility] [address] [place] [address] 62295- 8958 Oct, Thyroid nodule E04.1 and Screening for breast cancer Z12.31 [facility] [id number] [place] [address] 16725- 4111 Oct, History of DVT (deep vein thrombosis) Z86.718 ; Thyroid nodule E04.1 and Gastroesophageal reflux disease, esophagitis presence not specified K21.9 [facility] [id number] [place] [address] 90664- 2854 Oct, [facility] [id number] [place] [address] 82928- 7647 Sep, [facility] [id number] [place] [address] 85876- 7417 Aug, [facility] [id number] [place] [address] 38696- 8851 Aug, [facility] [id number] [place] [address] 20189- 0684 Aug, Acute pain of left shoulder M25.512 and Thyroid nodule E04.1 [facility] [id number] [place] [address] 04124- 1202 July, Superior glenoid labrum lesion of left shoulder, subsequent encounter S43.432D [facility] [id number] [place] [address] 26355- 6519 Jun, History of DVT (deep vein thrombosis) Z86.718 [facility] [id number] [place] [address] 53865- 9096 Jun, History of DVT (deep vein thrombosis) Z86.718 [place] [id number] [place] [address] 71728- 2083 Jun, Impingement syndrome, shoulder, left M75.42 [facility] [id number] [place] [address] 87036- 1505 May, Subacromial bursitis of left shoulder joint M75.52 [facility] [id number] [place] [address] 29550- 6432 May, [facility] [id number] [place] [address] 61201- 9186 May, Hypertriglyceridemia E78.1 ; residential (current) use of anticoagulants Z79.01 and Excessive daytime sleepiness G47.19 [facility] [id number] [place] [address] 10234- 254 May, History of DVT (deep vein thrombosis) Z86.718 ; Generalized anxiety disorder F41.1 ; Hypertriglyceridemia E78.1 ; residential (current) use of anticoagulants Z79.01 ; Subacromial bursitis of left shoulder joint M75.52 and Excessive daytime sleepiness G47.19 [facility] [id number] [place] [address] 19539- 5137 May, [facility] [id number] [place] [address] 70479- 5459 May, residential (current) use of anticoagulants Z79.01 [facility] [id number] [place] [address] 39278- 2543 Apr, residential (current) use of anticoagulants Z79.01 [facility] [id number] [place] [address] 92727 2546 Apr, rn long term care (current) use of anticoagulants Z79.01 [facility] [id number] [place] [address] 81210 2546 Apr, residential (current) use of anticoagulants Z79.01 [facility] [id number] [place] [address] 41065- 2546 Apr, [facility] [id number] [place] [address] 35497- 2546 Apr, residential (current) use of anticoagulants Z79.01 [facility] [id number] [place] [address] 12587- 2546 13 Apr, 2017 rn long term care (current) use of anticoagulants Z79.01 [facility] [address] [address]- 2446 Apr, rn long term care (current) use of anticoagulants Z79.01 [facility] [address] [place] [address] 21482 2546 Apr, residential (current) use of anticoagulants Z79.01 [facility] [id number] [place] [address] 73474 2546 Apr, residential (current) use of anticoagulants Z79.01 [facility] [address] [place] [address] 98620 2546 Apr, rn long term care (current) use of anticoagulants Z79.01 [facility] [id number] [place] [address] 46885- 5861 Mar, residential (current) use of anticoagulants Z79.01 [facility] [id number] [place] [address] 50935- 6006 Mar, [facility] [id number] [place] [address] 21010 2546 Mar, rn long term care (current) use of anticoagulants Z79.01 [facility] [id number] [place] [address] [phone] Jan, Dental examination Z01.20 [facility] [id number] [place] [address] [phone] Jan, [facility] [id number] [place] [address] 48927 2546 Jan, residential (current) use of anticoagulants Z79.01 [facility] [id number] [place] [address] 91272- 1816 Jan, History of DVT (deep vein thrombosis) Z86.718 [facility] [id number] [place] [address] 58367- 1536 07 Jan, 2017 Generalized anxiety disorder F41.1 and Peripheral edema R60.9 [facility] [address] [address]- 8289 Nov, History of DVT (deep vein thrombosis) Z86.718 [facility] [address] [address]- 6856 Nov, residential (current) use of anticoagulants Z79.01 [facility] [address] [place] [address] 54212 -2663 Nov, Acute non-recurrent maxillary sinusitis J01.00 [facility] [id number] [place] [address] 45211- 3245 Oct, rn long term care (current) use of anticoagulants Z79.01 [facility] [id number] [place] [address] 90092- 7067 Oct, Personal history of venous thrombosis and embolism Z86.718 [facility] [id number] [place] [address] 02099- 6944 Sep, [facility] [id number] [place] [address] 98199- 1383 Sep, Personal history of venous thrombosis and embolism Z86.718 [facility] [address] [place] [address] 42513- 5181 Sep, residential (current) use of anticoagulants Z79.01 [facility] [id number] [place] [address] 02571- 3198 Sep, residential (current) use of anticoagulants Z79.01 [facility] [address] [address]- 0680 Sep, Generalized anxiety disorder F41.1 and History of DVT (deep vein thrombosis) Z86.718 [facility] [address] [address]- 9755 Aug, History of DVT (deep vein thrombosis) Z86.718 ; Generalized anxiety disorder F41.1 ; rn long term care (current) use of anticoagulants Z79.01 ; Pelvic pain R10.2 ; Hypertriglyceridemia E78.1 ; Excessive daytime sleepiness G47.19 ; Colon cancer screening Z12.11 ; Screening for breast cancer Z12.39 ; Peripheral edema R60.9 and Gastroesophageal reflux disease, esophagitis presence not specified K21.9 [place] [facility] [address] 94814- 5934 Aug, [facility] [facility] [address] 53212- 2057 July, [facility] [facility] [address] 57843- 3982 July, History of DVT (deep vein thrombosis) Z86.718 [place] [facility] [address] 26367- 0508 Jun, Generalized anxiety disorder F41.1 [place] [facility] [address] 83164- 4050 Jun, History of DVT (deep vein thrombosis) Z86.718 [place] [facility] [address] 12627- 4605 Jun, History of DVT (deep vein thrombosis) Z86.718 [facility] [facility] [address] 66899- 8269 Jun, History of DVT (deep vein thrombosis) Z86.718 [facility] [facility] [address] 57196- 7391 Jun, History of DVT (deep vein thrombosis) Z86.718 [facility] [address] 92848- 7113 May, History of DVT (deep vein thrombosis) Z86.718 [place] [address] 01858- 2303 May, residential (current) use of anticoagulants Z79.01 [facility] [address] [place] [address]- 7078 07 May, 2016 residential (current) use of anticoagulants Z79.01 [facility] [address] 82300- 7153 May, History of DVT (deep vein thrombosis) Z86.718 [facility] [id number] [place] [address] 44867 -1138 27 Apr, 2016 Bacterial conjunctivitis of left eye H10.9 and H/O motion sickness Z87.898 [facility] [id number] [place] [address] 87732- 9396 24 Apr, 2016 History of DVT (deep vein thrombosis) Z86.718 [facility] [id number] [place] [address] 17905- 7806 23 Apr, 2016 History of DVT (deep vein thrombosis) Z86.718 [facility] [address] 84555- 0328 15 Apr, 2016 History of DVT (deep vein thrombosis) Z86.718 [place] [facility] [address] 65096- 6243 14 Apr, 2016 residential (current) use of anticoagulants Z79.01 [facility] [id number] [place] [address] 08536- 6754 Mar, [facility] [address] 43821- 5050 Mar, residential (current) use of anticoagulants Z79.01 [facility] [id number] [place] [address] 02004 2546 Mar, Hypertriglyceridemia E78.1 and residential (current) use of anticoagulants Z79.01 [facility] [id number] [place] [address] 34830- 2347 Feb, rn long term care (current) use of anticoagulants Z79.01 [place] [address] [place] [address]- 2060 Feb, rn long term care (current) use of anticoagulants Z79.01 [facility] [place] [id number] [place] [address] 61067- 0756 Feb, residential (current) use of anticoagulants Z79.01 [facility] [id number] [place] [address] 39472- 9646 Dec, [facility] [facility] [address] 11342- 4354 Nov, [facility] [id number] [place] [address] 97284- 5895 Nov, History of DVT (deep vein thrombosis) Z86.718 ; Tremulousness R25.1 ; Generalized anxiety disorder F41.1 ; Peripheral edema R60.9 and Hypertriglyceridemia E78.1 [facility] [id number] [place] [address] 18819- 6717 Oct, History of DVT (deep vein thrombosis) Z86.718 [facility] [id number] [place] [address] 85484- 9205 Oct, [facility] [id number] [place] [address] 34343- 0247 Sep, History of DVT (deep vein thrombosis) Z86.718 [facility] [address] [place] [address] 04563- 8697 Sep, residential (current) use of anticoagulants Z79.01 [facility] [address] [place] [address] 48180- 6066 July, [facility] [id number] [place] [address] 816626- 6656 July, residential (current) use of anticoagulants Z79.01 [facility] [address] [place] [address] 61963 2546 July, rn long term care (current) use of anticoagulants Z79.01 [facility] [place] [id number] [place] [address] 37129- 8560 Jun, residential (current) use of anticoagulants Z79.01 [facility] [address] 46848 -1678 Jun, Coccyx pain M53.3 ; Encounter for therapeutic drug level monitoring Z51.81 and rn long term care current use 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.01 [place] [address] 10584- 2595 May, Abnormal mammogram R92.8 [facility] [place] [address] 10667 -8405 May, [facility] IN [place] [address] 99730 -5661 May, Acute vaginitis N76.0 and Encounter for other screening for malignant neoplasm of breast Z12.39 [place] [address] 45587- 5262 Apr, [place] [address] 89171- 5384 Apr, [place] [address] 65897- 7552 Apr, Peripheral edema R60.9 [facility] [facility] [address] 54423- 9648 Apr, residential (current) use of anticoagulants Z79.01 [place] [address] 12949- 9123 Apr, Peripheral edema R60.9 and rn long term care (current) use of anticoagulants Z79.01 [place] [address] 45177- 4986 Apr, rn long term care (current) use of anticoagulants Z79.01 [place] [address] 04863- 5079 Apr, [facility] [address] [place] [address] 29052- 4785 Apr, residential (current) use of anticoagulants Z79.01 [facility] [id number] [place] [address] 24976 2546 Apr, Peripheral edema R60.9 [facility] [address] 60571- 3610 Mar, rn long term care (current) use of anticoagulants Z79.01 [facility] [id number] [place] [address] 36006- 4436 Mar, rn long term care (current) use of anticoagulants Z79.01 and Hypertriglyceridemia E78.1 [facility] [id number] [place] [address] 70977- 9633 Mar, residential (current) use of anticoagulants Z79.01 [facility] [id number] [place] [address] 21098- 3082 Mar, rn long term care (current) use of anticoagulants Z79.01 [facility] [id number] [place] [address] 96738- 7437 Mar, [facility] [id number] [place] [address] 19359- 7805 Mar, residential (current) use of anticoagulants Z79.01 ; Hypertriglyceridemia E78.1 ; Personal history of venous thrombosis and embolism Z86.718 and Lump R22.9 [facility] [place] [address] [place] [address] 04836- 0250 Mar, Personal history of venous thrombosis and embolism Z86.718 [facility] [id number] [place] [address] 30662- 9256 Mar, Personal history of venous thrombosis and embolism Z86.718 [facility] [id number] [place] [address] 67220- 4405 Mar, [facility] [address] [facility] [id number] [address]- 1352 Dec, Personal history of venous thrombosis and embolism Z86.718 [facility] [id number] [address]- 1396 Dec, Personal history of venous thrombosis and embolism V12.51 [facility] [address] [address]- 7386 Nov, Personal history of venous thrombosis and embolism V12.51 [facility] [address] [facility] [id number] [place] [address] 2541 Nov, Personal history of venous thrombosis and embolism V12.51 [facility] [id number] [address]- 2693 Nov, Personal history of venous thrombosis and embolism V12.51 [facility] [address] [place] [address] 99152- 2547 Nov, Personal history of venous thrombosis and embolism V12.51 [facility] [id number] [address]- 9187 Nov, [facility] [address] [address]- 4665 Oct, Dysuria 788.1 [facility] [address] [address]- 1844 Oct, Personal history of venous thrombosis and embolism V12.51 [facility] [address] [facility] [id number] [place] [address]- 2389 Oct, [facility] [id number] [address]- 2298 Oct, Personal history of venous thrombosis and embolism V12.51 [facility] [id number] [address]- 9471 Sep, Personal history of venous thrombosis and embolism V12.51 [facility] [address] [address]- 7735 Sep, Personal history of venous thrombosis and embolism V12.51 [facility] [address] [address]- 2986 Aug, Personal history of venous thrombosis and embolism V12.51 [facility] [address] [address]- 4756 18 Aug, 2014 Personal history of venous thrombosis and embolism V12.51 [facility] [address] [facility] [id number] [place] [address]- 3560 15 Aug, 2014 Personal history of venous thrombosis and embolism V12.51 [facility] [address] [address]- 4646 July, Generalized anxiety disorder 300.02 ; Abdominal pain, left lower quadrant 789.04 and Personal history of venous thrombosis and embolism V12.51 [facility] [address] [address]- 8321 Jun, [facility] [address] [address]- 7866 Jun, [facility] [address] [address]- 4089 May, [facility] [address] [address]- 7304 May, [facility] [address] [address]- 9516 17 May, 2014 [facility] [id number] [address]- 9029 17 May, 2014 [facility] [address] [address]- 3026 May, [facility] [id number] [address]- 4770 May, [facility] [address] [address]- 5258 May, [facility] [place] [facility] [address] [id number] [place] [address]- 1467 May, [facility] [place] [facility] [address] [id number] [place] [address]- 1296 Apr, [facility] [place] [facility] [address] [id number] [place] [address]- 9346 Apr, [facility] [place] [facility] [address] [id number] [place] [address]- 6807 Apr, [facility] [place] [facility] [address] [id number] [place] [address]- 1605 Apr, [facility] [place] [facility] [address] [id number] [place] [address]- 3779 Apr, [facility] [place] [facility] [address] [facility] [id number] [place] [address]- 7189 Mar, [facility] [place] [facility] [address] [id number] [place] [address]- 2788 Mar, [facility] [place] [facility] [address] [id number] [place] [address]- 7081 Mar, [facility] [place] [facility] [address] [facility] [id number] [place] [address]- 1487 Mar, [facility] [place] [facility] [address] [id number] [place] [address]- 6746 Mar, [facility] [place] [facility] [address] [id number] [place] [address]- 4923 Mar, [facility] [place] [facility] [address] [id number] [place] [address]- 4697 Feb, [facility] [place] [facility] [address] [id number] [place] [address]- 5877 Feb, [facility] [place] [facility] [address] [facility] [id number] [place] [address]- 3124 Feb, [facility] [place] [facility] [address] [id number] [place] [address]- 2571 Feb, [facility] [place] [facility] [address] [id number] [place] 4821 Feb, [facility] [place] [facility] [address] [id number] [place] 0316 Feb, [facility] [place] [facility] [address] [id number] [place] [address]- 6143 Feb, [facility] [place] [facility] [address] [id number] [place] [address]- 9331 Feb, [facility] [place] [facility] [address] [id number] [place] [address]- 9580 Feb, [facility] [place] [facility] [address] [id number] [place] [address]- 0058 Feb, [facility] [place] [facility] [address] [id number] [place] [address]- 7470 Jan, [facility] [place] [facility] [address] [id number] [place] [address]- 6287 Jan, [facility] [place] [facility] [address] [id number] [place] [address]- 6651 Jan, [facility] [place] [facility] [address] [id number] [place] [address]- 5980 Jan, [facility] [place] [facility] [address] [id number] [place] [address]- 4400 Jan, [facility] [place] [facility] [address] [id number] [place] [address]- 8090 Jan, [facility] [place] [facility] [address] [id number] [place] [address]- 9588 Jan, [facility] [place] [facility] [address] [id number] [place] [address]- 2358 Jan, [facility] [place] [facility] [address] [id number] [place] [address] Jan, [facility] [place] [facility] [address] [id number] [place] [address] Jan, [facility] [place] [facility] [address] [id number] [place] [address] Dec, [facility] [place] [facility] [address] [id number] [place] [address] Dec, [facility] [place] [facility] [address] [id number] [place] [address] Dec, [facility] [place] [facility] [address] [id number] [place] [address] Dec, [facility] [place] [facility] [address] [id number] [place] [address] Dec, [facility] [place] [facility] [address] [id number] [place] [address] Dec, [facility] [place] [facility] [address] [id number] [place] [address] Dec, [facility] [place] [facility] [address] [id number] [place] [address] Dec, [facility] [place] [facility] [address] [id number] [place] [address] Dec, [facility] [place] [facility] [address] [id number] [place] [address] Dec, [facility] [place] [facility] [address] [id number] [place] [address] Dec, [facility] [place] [facility] [address] [id number] [place] [address] Dec, [facility] [place] [facility] [address] [id number] [place] [address] Dec, [facility] [place] [facility] [address] [id number] [place] [address] Dec, [facility] [place] [facility] [address] [id number] [place] [address] 01 Dec, 2013 [facility] [place] [facility] [address] [id number] [place] [address] 30 Sep, 2013 [facility] [place] [facility] [address] [id number] [place] [address] 30 Nov, 2013 [facility] [place] [facility] [address] [id number] [place] [address] 26 Nov, 2013 [facility] [place] [facility] [address] [id number] [place] [address] 26 Nov, 2013 [facility] [place] [facility] [address] [id number] [place] [address] 24 Nov, 2013 [facility] [place] [facility] [address] [id number] [place] [address] 24 Nov, 2013 [facility] [place] [facility] [address] [id number] [place] [address] 23 Nov, 2013 [facility] [place] [facility] [address] [id number] [place] [address] 23 Nov, 2013 [facility] [place] [facility] [address] [id number] [place] [address] 18 Nov, 2013 [facility] [place] [facility] [address] [id number] [place] [address] 18 Nov, 2013 [facility] [place] [facility] [address] [id number] [place] [address] 2546 17 Nov, 2013 [facility] [place] [facility] [address] [id number] [place] [address] 254 17 Nov, 2013 [facility] [place] [facility] [address] [id number] [place] [address] 2543 11 Nov, 2013 [facility] [place] [facility] [address] [id number] [place] [address] 2546 11 Nov, 2013 [facility] [place] [facility] [address] [id number] [place] [address] 2546 Nov, 2013 [facility] [place] [facility] [address] [id number] [place] [address] 3323 10 Nov, 2013 [facility] [place] [facility] [address] [id number] [place] [address] 2336 Nov, [facility] [place] [facility] [address] [id number] [place] [address] 7370 Nov, [facility] [place] [facility] [address] [id number] [place] [address] 9973 Sep, [facility] [place] [facility] [address] [id number] [place] [address] 8558 Sep, [facility] [place] [facility] [address] [id number] [place] [address] 0338 Sep, [facility] [place] [facility] [address] [id number] [place] [address]- 1587 Sep, [facility] [place] [facility] [address] [id number] [place] [address]- 8346 Sep, [facility] [place] [facility] [address] [id number] [place] [address]- 2138 Sep, [facility] [place] [facility] [address] [id number] [place] [address]- 9840 Aug, [facility] [place] [facility] [address] [id number] [place] [address]- 1879 Aug, [facility] [place] [facility] [address] [id number] [place] [address]- 2838 Aug, [facility] [place] [facility] [address] [id number] [place] [address]- 0628 Aug, [facility] [place] [facility] [address] [id number] [place] [address]- 7769 Aug, [facility] [place] [facility] [address] [id number] [place] [address]- 2258 Aug, [facility] [place] [facility] [address] [id number] [place] [address]- 6193 Aug, [facility] [place] [facility] [address] [id number] [place] [address]- 1698 Aug, [facility] [place] [facility] [address] [id number] [place] [address]- 1144 Aug, [facility] [place] [facility] [address] [id number] [place] [address]- 8582 Aug, [facility] [place] [facility] [address] [id number] [place] [address]- 6702 Aug, [facility] [place] [facility] [address] [id number] [place] [address]- 7242 July, [facility] [place] [facility] [address] [id number] [place] [address]- 1684 July, [facility] [place] [facility] [address] [id number] [place] [address]- 8996 Jun, [facility] [place] [facility] [address] [id number] [place] [address]- 6053 Jun, [facility] [place] [facility] [address] [id number] [place] [address]- 5845 Jun, [facility] [place] [facility] [address] [id number] [place] [address]- 9879 Jun, [facility] [place] [facility] [address] [id number] [place] [address]- 1065 Jun, [facility] [place] [facility] [address] [id number] [place] [address]- 3424 Jun, [facility] [place] [facility] [address] [id number] [place] [address]- 5705 15 Jun, 2013 [facility] [place] [facility] [address] [id number] [place] [address]- 6702 Jun, [facility] [place] [facility] [address] [id number] [place] [address]- 2705 Jun, [facility] [place] [facility] [address] [id number] [place] [address]- 0396 11 Jun, 2013 [facility] [address] [id number] [place] [address]- 9092 Jun, [facility] [place] [facility] [address] [id number] [place] [address]- 1296 Jun, [facility] [address] [id number] [place] [address] 1964 May, [facility] [place] [facility] [address] [id number] [place] [address]- 2687 May, [facility] [place] [facility] [address] [id number] [place] [address]- 2726 May, [facility] [place] [facility] [address] [id number] [place] [address]- 9517 May, [facility] [place] [facility] [address] [id number] [place] [address]- 9564 May, [facility] [address] [id number] [place] [address]- 4407 May, [facility] [place] [facility] [address] [id number] [place] [address]- 9169 May, [facility] [address] [id number] [place] [address]- 2277 May, [facility] [place] [facility] [address] [id number] [place] [address]- 6581 May, [facility] [place] [facility] [address] [id number] [place] [address]- 5966 May, [facility] [place] [facility] [address] [id number] [place] [address]- 9352 May, [facility] [place] [facility] [address] [id number] [place] [address]- 2076 May, [facility] [place] [facility] [address] [id number] [place] [address] [address] Apr, [facility] [place] [facility] [address] [id number] [place] [address]- 1916 Apr, [facility] [place] [facility] [address] [id number] [place] [address]- 3315 Apr, [facility] [place] [facility] [address] [facility] [id number] [place] [address]- 0663 Apr, [facility] [place] [facility] [address] [facility] [id number] [place] [address]- 1915 Apr, [facility] [place] [facility] [address] [id number] [place] [address]- 9912 Apr, [facility] [place] [facility] [address] [facility] [id number] [place] [address]- 2414 Apr, [facility] [place] [facility] [address] [facility] [id number] [place] [address]- 9600 Apr, [facility] [place] [facility] [address] [facility] [id number] [place] [address]- 5719 Apr, [facility] [place] [facility] [address] [facility] [id number] [place] [address]- 1000 Apr, [facility] [place] [facility] [address] [facility] [id number] [place] [address]- 7890 Apr, [facility] [place] [facility] [address] [facility] [id number] [place] [address]- 7599 Apr, [facility] [place] [facility] [address] [facility] [id number] [place] [address]- 3044 Apr, [facility] [place] [facility] [address] [facility] [id number] [place] [address]- 0122 Apr, [facility] [place] [facility] [address] [facility] [id number] [place] [address]- 2748 Apr, [facility] [place] [facility] [address] [facility] [id number] [place] [address]- 0750 Apr, [facility] [place] [facility] [address] [id number] [place] [address]- 5251 Apr, [facility] [place] [facility] [address] [id number] [place] [address]- 1081 Jan, [facility] [place] [facility] [address] [id number] [place] [address]- 3060 Jan, [facility] [place] [facility] [address] [id number] [place] [address]- 3190 Jan, [facility] [place] [facility] [address] [id number] [place] [address]- 8844 Jan, [facility] [place] [facility] [address] [id number] [place] [address]- 5333 Jan, [facility] [place] [facility] [address] [id number] [place] [address]- 8287 Jan, [facility] [place] [facility] [address] [id number] [place] [address]- 1538 Jan, [facility] [place] [facility] [address] [id number] [place] [address]- 1348 Dec, [facility] [place] [facility] [address] [id number] [place] [address]- 3951 Dec, [facility] [place] [facility] [address] [id number] [place] [address]- 2965 Dec, [facility] [place] [facility] [address] [id number] [place] [address]- 3943 Nov, [facility] [place] [facility] [address] [id number] [place] [address]- 6597 10 Nov, 2012 [facility] [place] [facility] [address] [id number] [place] [address]- 6659 05 Nov, 2012 [facility] [place] [facility] [address] [id number] [place] [address] 04 Nov, 2012 [facility] [place] [facility] [address] [id number] [place] [address]- 2299 Oct, [facility] [place] [facility] [address] [id number] [place] [address]- 7606 Oct, [facility] [place] [facility] [address] [id number] [place] [address]396 Oct, [facility] [place] [facility] [address] [id number] [place] [address]- 5982 Oct, [facility] [place] [facility] [address] [id number] [place] [address]- 2839 Oct, [facility] [place] [facility] [address] [id number] [place] [address]- 6292 Sep, [facility] [place] [facility] [address] [id number] [place] [address]- 7569 Sep, [facility] [place] [facility] [address] [id number] [place] [address]- 4002 Sep, [facility] [place] [facility] [address] [id number] [place] [address]- 9512 Sep, [facility] [place] [facility] [address] [id number] [place] [address]- 2120 Sep, [facility] [place] [facility] [address] [id number] [place] [address]- 3861 Sep, [facility] [place] [facility] [address] [id number] [place] [address]- 7383 Sep, [facility] [place] [facility] [address] [id number] [place] [address]- 9514 Aug, [facility] [place] [facility] [address] [id number] [place] [address]- 9411 Aug, [facility] [place] [facility] [address] [id number] [place] [address]- 2872 July, [facility] [place] [facility] [address] [id number] [place] [address]- 2301 Jun, [facility] [place] [facility] [address] [id number] [place] [address]- 5584 Jun, [facility] [address] [id number] [place] [address]- 2219 Jun, [facility] [place] [facility] [address] [id number] [place] [address]- 9366 Apr, [facility] [address] [id number] [place] [address]- 3336 Apr, [facility] [place] [facility] [address] [id number] [place] [address]- 3396 Apr, [facility] [address] [id number] [place] [address]- 7734 Mar, [facility] [address] [id number] [place] [address]- 5234 Mar, [facility] [address] [id number] [place] [address]- 2579 2012 [facility] [address] [id number] [place] [address]- 1442 Mar, [facility] [address] [id number] [place] [address]- 1104 Mar, [facility] [address] [id number] [place] [address]- 4480 14 Feb, 2012 [facility] [address] [id number] [place] [address]- 1491 14 Feb, 2012 [facility] [address] [id number] [place] [address]- 1828 13 Jan, 2012 [facility] [place] [facility] [address] [id number] [place] [address]- 6114 13 Jan, 2012 [facility] [place] [facility] [address] [id number] [place] [address]- 9497 13 Jan, 2012 [facility] [place] [facility] [address] [id number] [place] [address]- 2320 Jan, [facility] [place] [facility] [address] [id number] [place] [address]- 7639 Jan, [facility] [place] [facility] [address] [id number] [place] [address]- 5676 Jan, [facility] [place] [facility] [address] [facility] [id number] [place] [address]- 6996 Jan, [facility] [place] [facility] [address] [id number] [place] [address]- 5748 Dec, [facility] [place] [facility] [address] [id number] [place] [address]- 6389 Dec, [facility] [place] [facility] [address] [id number] [place] [address]- 9555 Dec, [facility] [place] [facility] [address] [id number] [place] [address]- 8317 Dec, [facility] [place] [facility] [address] [id number] [place] [address]- 5879 Dec, [facility] [place] [facility] [address] [id number] [place] [address]- 8283 Dec, [facility] [place] [facility] [address] [id number] [place] [address]- 2991 Dec, [facility] [place] [facility] [address] [id number] [place] [address]- 3844 Dec, [facility] [place] [facility] [address] [id number] [place] [address]- 1962 Dec, [facility] [place] [facility] [address] [id number] [place] [address]- 1666 Dec, [facility] [place] [facility] [address] [facility] [id number] [place] [address]- 2961 Oct, [facility] [place] [facility] [address] [facility] [id number] [place] [address]- 0616 Oct, [facility] [place] [facility] [address] [id number] [place] [address]- 4105 14 Aug, 2011 [facility] [address] [id number] [place] [address]- 5116 14 Aug, 2011 [facility] [place] [facility] [address] [id number] [place] [address] 2546 July, [facility] [address] [id number] [place] [address]- 5026 Jun, [facility] [place] [facility] [address] [id number] [place] [address] 2546 Jun, [facility] [address] [id number] [place] [address]- 5736 May, [facility] [place] [facility] [address] [id number] [place] [address]- 3876 Apr, [facility] [address] [facility] [id number] [place] [address]- 8753 Apr, [facility] [address] [facility] [id number] [place] [address]- 5620 Mar, [facility] [address] [facility] [id number] [place] [address]- 6374 Mar, [facility] [address] [facility] [id number] [place] [address]- 1040 19 Feb, 2011 [facility] [place] [facility] [address] [id number] [place] [address]- 4966 15 Feb, 2011 [facility] [place] [facility] [address] [id number] [place] [address] 2541 13 Feb, 2011 [facility] [place] [facility] [address] [id number] [place] [address]- 7684 13 Feb, 2011 [facility] [place] [facility] [address] [facility] [id number] [place] [address]- 2546 11 Jan, 2011 [facility] [place] [facility] [address] [facility] [id number] [place] [address]- 4806 Dec, [facility] [id number] [place] [address] 3596 Feb, [facility] [id number] [place] [address] 480[address] Feb, [facility] [id number] [place] [address] 4865 Feb, [facility] [address] [facility] [id number] [place] [address] 4258 Feb, [facility] [address] [facility] [id number] [place] [address] Dec, [facility] [id number] [place] [address] 0697 Dec, [facility] [id number] [place] [address]- 5635 Oct, [facility] [id number] [place] [address]- 4507 Jun, [facility] [id number] [place] [address] 3159 Feb, [facility] [id number] [place] [address] 2857 Feb, [facility] [id number] [place] [address]- 0904 Feb, [facility] [id number] [place] [address]- 2227 Dec, IMMUNIZATIONS No Known Immunizations SOCIAL HISTORY Never Assessed REASON FOR VISIT Post/BU #7 PLAN OF CARE VITAL SIGNS MEDICATIONS Unknown Medications RESULTS No Results PROCEDURES Procedure Date Ordered Result Body Site Billing Notes on claim Dec 03, 2017 INSTRUCTIONS MEDICATIONS ADMINISTERED No Known Medications MEDICAL [...]
--- OUTSIDE RECORDS SUMMARY | 2018-08-02 08:47 | XMS REPORT ---
Author Author KIANA ASHLEY [facility] Address [address] [place] [address] Care Team Providers Care Business Management Specialist Name Role Phone ELMO BRUNOY Unavailable PROBLEMS Type Condition ICD9-CM Code [id number] Code Onset Dates Condition Status SNOMED Code Problem Presence of IVC filter Z95.828 Active 579006439 Problem Pelvic pain R10.2 Active 57338804 Problem 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 Active 560075987 Problem Obstructive sleep apnea G47.33 Active 73900803 Problem Morbid obesity E66.01 Active 531892508 Problem Excessive daytime sleepiness G47.19 Active 922032299323 Problem Peripheral edema R60.9 Active 899793180 Problem Thyroid nodule E04.1 Active 724055244 Problem Gastroesophageal reflux disease, esophagitis presence not specified K21.9 Active 602998670 Problem History of DVT (deep vein thrombosis) Z86.718 Active 785970285 Problem Hypertriglyceridemia E78.1 Active 365296239 Problem 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 Active 394523432 Problem Factor V Leiden D68.51 Active 792782126 Problem Generalized anxiety disorder F41.1 Active 485493705 ALLERGIES No Information ENCOUNTERS Encounter Location Date Diagnosis [facility] [id number] [place] [address] 05624- 7961 Nov, [facility] [id number] [place] [address] 25346- 0982 Nov, Obstructive sleep apnea G47.33 ; Morbid obesity E66.01 and Gastroesophageal reflux disease, esophagitis presence not specified K21.9 [facility] [address] [place] [address] [id number] 06 Nov, 2017 Encounter for examination of eyes and vision without abnormal findings Z01.00 [facility] [id number] [place] [address] 54084- 5024 Oct, Thyroid nodule E04.1 and Screening for breast cancer Z12.31 [place] [id number] [place] [address] 82478- 9419 Oct, History of DVT (deep vein thrombosis) Z86.718 ; Thyroid nodule E04.1 and Gastroesophageal reflux disease, esophagitis presence not specified K21.9 [place] [facility] [id number] [place] [address] 90797- 8213 Oct, [place] [id number] [place] [address] 30327- 2976 Sep, [place] [id number] [place] [address] 26114- 4365 Aug, [place] [id number] [place] [address] 48631- 4980 Aug, [place] [id number] [place] [address] 94782- 9700 Aug, Acute pain of left shoulder M25.512 and Thyroid nodule E04.1 [place] [id number] [place] [address] 23955- 7534 July, Superior glenoid labrum lesion of left shoulder, subsequent encounter S43.432D [facility] [id number] [place] [address] 90139- 6505 Jun, History of DVT (deep vein thrombosis) Z86.718 [place] [id number] [place] [address] 80935- 1742 Jun, History of DVT (deep vein thrombosis) Z86.718 [place] [id number] [place] [address] 88417- 2976 Jun, Impingement syndrome, shoulder, left M75.42 [facility] [address] [place] [address] 57951- 5496 May, Subacromial bursitis of left shoulder joint M75.52 [facility] [address] [place] [address] 35069 2540 May, [place] [address] 35824 2546 May, Hypertriglyceridemia E78.1 ; 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 and Excessive daytime sleepiness G47.19 [place] [address] 69387 2546 May, History of DVT (deep vein thrombosis) Z86.718 ; Generalized anxiety disorder F41.1 ; Hypertriglyceridemia E78.1 ; 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 ; Subacromial bursitis of left shoulder joint M75.52 and Excessive daytime sleepiness G47.19 [place] [id number] [place] [address] 44323 2546 May, [place] [address] 34228 254 May, halfway (current) use of anticoagulants Z79.01 [place] [id number] [place] [address] 35357 2546 Apr, 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 [place] [id number] [place] [address] 84633 2546 Apr, halfway (current) use of anticoagulants Z79.01 [place] [address] [place] [address] 79441 2546 Apr, halfway (current) use of anticoagulants Z79.01 [place] [id number] [place] [address] 50253 2546 Apr, [place] [address] 46318 2546 Apr, 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 [place] [id number] [place] [address] 65091 2546 13 Apr, 2017 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 [facility] [address] [place] [address] 95824 2546 Apr, 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 [facility] [address] [place] [address] 12150 2546 Apr, halfway (current) use of anticoagulants Z79.01 [facility] [id number] [place] [address] 73587 2546 Apr, halfway (current) use of anticoagulants Z79.01 [facility] [id number] [place] [address] 48079 2546 Apr, halfway (current) use of anticoagulants Z79.01 [facility] [id number] [place] [address] 72676 2546 Mar, 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 [facility] [id number] [place] [address] 35532 2546 Mar, [facility] [id number] [place] [address] 75472 2546 Mar, 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 [facility] [id number] [place] [address] [id number] Jan, Dental examination Z01.20 [facility] [id number] [place] [address] [phone] Jan, [facility] [address] [place] [address] 99163 2546 Jan, 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 [facility] [address] [place] [address] 23747 2546 Jan, History of DVT (deep vein thrombosis) Z86.718 [facility] [id number] [place] [address] 94961- 1003 Jan, Generalized anxiety disorder F41.1 and Peripheral edema R60.9 [facility] [id number] [place] [address] 74414- 8472 Nov, History of DVT (deep vein thrombosis) Z86.718 [facility] [id number] [place] [address] 68274- 2749 Nov, 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 [facility] [address] [place] [address] 31179 -5761 Nov, Acute non-recurrent maxillary sinusitis J01.00 [place] [address] 63585- 5985 Oct, halfway (current) use of anticoagulants Z79.01 [place] [address] [place] [address] 04483- 4484 Oct, Personal history of venous thrombosis and embolism Z86.718 [place] [address] [place] [address] 56493- 7401 Sep, [place] [address] 55967- 5279 Sep, Personal history of venous thrombosis and embolism Z86.718 [facility] [id number] [place] [address] 07562- 2331 Sep, 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 [place] [address] [place] [address] 46482- 2167 Sep, 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 [facility] [id number] [place] [address] 25922- 1790 Sep, Generalized anxiety disorder F41.1 and History of DVT (deep vein thrombosis) Z86.718 [facility] [address] [place] [address] 62394- 3276 Aug, History of DVT (deep vein thrombosis) Z86.718 ; Generalized anxiety disorder F41.1 ; 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 ; Pelvic pain R10.2 ; Hypertriglyceridemia E78.1 ; Excessive daytime sleepiness G47.19 ; Colon cancer screening Z12.11 ; Screening for breast cancer Z12.39 ; Peripheral edema R60.9 and Gastroesophageal reflux disease, esophagitis presence not specified K21.9 [place] [address] 00352- 4521 Aug, [place] [address] 32385- 8473 July, [address] 65228- 9322 July, History of DVT (deep vein thrombosis) Z86.718 [place] [address] 64472- 7550 Jun, Generalized anxiety disorder F41.1 [place] [address] 50964- 6561 Jun, History of DVT (deep vein thrombosis) Z86.718 [place] [address] 15605- 2664 Jun, History of DVT (deep vein thrombosis) Z86.718 [place] [address] [place] [address] 99003- 2710 Jun, History of DVT (deep vein thrombosis) Z86.718 [place] [address] [place] [address] 05068- 0028 Jun, History of DVT (deep vein thrombosis) Z86.718 [place] [address] 86221- 0381 May, History of DVT (deep vein thrombosis) Z86.718 [place] [address] [place] [address] 30115- 7114 May, halfway (current) use of anticoagulants Z79.01 [facility] [address] [place] [address] 62944- 3418 May, 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 [facility] [id number] [place] [address] 27413- 7476 May, History of DVT (deep vein thrombosis) Z86.718 [facility] [id number] [place] [address] 06273 -1421 27 Apr, 2016 Bacterial conjunctivitis of left eye H10.9 and H/O motion sickness Z87.898 [facility] [address] 87352- 0502 24 Apr, 2016 History of DVT (deep vein thrombosis) Z86.718 [facility] [id number] [place] [address] 27104- 5381 Apr, History of DVT (deep vein thrombosis) Z86.718 [facility] [id number] [place] [address] 34848- 3176 15 Apr, 2016 History of DVT (deep vein thrombosis) Z86.718 [facility] [id number] [place] [address] 00039- 5948 14 Apr, 2016 halfway (current) use of anticoagulants Z79.01 [place] [id number] [place] [address] 09021- 2386 Mar, [facility] [address] 15621- 2542 Mar, 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 [place] [address] 22903 2546 Mar, Hypertriglyceridemia E78.1 and halfway (current) use of anticoagulants Z79.01 [place] [address] [place] [address] 78710- 8166 Feb, halfway (current) use of anticoagulants Z79.01 [place] [address] [place] [address] 57208- 3213 Feb, 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 [place] [id number] [place] [address] 487472- 3926 Feb, 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 [place] [address] [place] [address] 46527- 0776 Dec, [place] [id number] [place] [address] 65552- 3709 Nov, [place] [address] 596804- 9112 Nov, History of DVT (deep vein thrombosis) Z86.718 ; Tremulousness R25.1 ; Generalized anxiety disorder F41.1 ; Peripheral edema R60.9 and Hypertriglyceridemia E78.1 [place] [address] [place] [address] 34557- 5689 Oct, History of DVT (deep vein thrombosis) Z86.718 [place] [address] [place] [address] 99392- 9113 Oct, [place] [address] [place] [address] 80348- 5127 Sep, History of DVT (deep vein thrombosis) Z86.718 [place] [address] [place] [address] 41566- 7129 Sep, halfway (current) use of anticoagulants Z79.01 [place] [address] [place] [address] 25139- 1916 July, [place] [address] [place] [address] 82550- 0671 July, halfway (current) use of anticoagulants Z79.01 [place] [address] [place] [address] 10074- 6806 July, halfway (current) use of anticoagulants Z79.01 [facility] [address] [place] [address] 26309- 7423 Jun, halfway (current) use of anticoagulants Z79.01 [facility] [address] [place] [address] 56583 -9544 Jun, Coccyx pain M53.3 ; Encounter for therapeutic drug level monitoring Z51.81 and halfway current use 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.01 [place] [address] [place] [address] 71312- 4714 May, Abnormal mammogram R92.8 [facility] [place] [address] 47062 -7233 May, [facility] [place] [address] [place] [address] 67661 -3191 May, Acute vaginitis N76.0 and Encounter for other screening for malignant neoplasm of breast Z12.39 [place] [address] [place] [address] 55087- 0724 Apr, [place] [address] [place] [address] 29268- 3195 Apr, [place] [address] [place] [address] 41263- 0077 Apr, Peripheral edema R60.9 [place] [address] [place] [address] 02612- 3193 Apr, halfway (current) use of anticoagulants Z79.01 [place] [address] [place] [address] 19402- 6841 Apr, Peripheral edema R60.9 and 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 [place] [address] [place] [address] 31428- 3163 Apr, halfway (current) use of anticoagulants Z79.01 [place] [address] [place] [address] 83923- 9415 Apr, [place] [address] 34638- 1854 Apr, 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 [place] [address] [place] [address] 29012- 3425 Apr, Peripheral edema R60.9 [place] [address] 43494- 9079 Mar, 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 [place] [address] 53389- 5061 Mar, 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 and Hypertriglyceridemia E78.1 [place] [address] [place] [address] 33765- 7103 Mar, 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 [place] [address] [place] [address] 15509- 9136 Mar, 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 [place] [address] [place] [address] 07316- 6963 Mar, [place] [address] [place] [address] 42191- 0777 Mar, 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 ; Hypertriglyceridemia E78.1 ; Personal history of venous thrombosis and embolism Z86.718 and Lump R22.9 [place] [address] [place] [address] 28822- 6342 Mar, Personal history of venous thrombosis and embolism Z86.718 [place] [address] [place] [address] 86955- 8705 Mar, Personal history of venous thrombosis and embolism Z86.718 [place] [address] [place] [address] 42927- 9249 Mar, [facility] [address] [address]- 3323 Dec, Personal history of venous thrombosis and embolism Z86.718 [facility] [address] [address]- 5726 Dec, Personal history of venous thrombosis and embolism V12.51 [facility] [address] [address]- 4409 Nov, Personal history of venous thrombosis and embolism V12.51 [facility] [address] [place] [address] 95832- 5556 Nov, Personal history of venous thrombosis and embolism V12.51 [facility] [address] [address]- 8280 Nov, Personal history of venous thrombosis and embolism V12.51 [facility] [address] [address]- 8859 Nov, Personal history of venous thrombosis and embolism V12.51 [facility] [address] [address]- 7115 Nov, [facility] [address] [address]- 0276 Oct, Dysuria 788.1 [facility] [address] [address]- 3766 Oct, Personal history of venous thrombosis and embolism V12.51 [facility] [id number] [address] 2541 Oct, [facility] [address] [address]- 2546 Oct, Personal history of venous thrombosis and embolism V12.51 [facility] [address] [address]- 4379 Sep, Personal history of venous thrombosis and embolism V12.51 [facility] [address] [facility] [id number] [address]- 0779 Sep, Personal history of venous thrombosis and embolism V12.51 [facility] [id number] [address]- 9387 Aug, Personal history of venous thrombosis and embolism V12.51 [facility] [address] [address]- 9457 Aug, Personal history of venous thrombosis and embolism V12.51 [facility] [address] [facility] [id number] 2581 Aug, Personal history of venous thrombosis and embolism V12.51 [facility] [address]- 8988 July, Generalized anxiety disorder 300.02 ; Abdominal pain, left lower quadrant 789.04 and Personal history of venous thrombosis and embolism V12.51 [facility] [address] [address]- 2958 Jun, [facility] [address] [address]- 0703 Jun, [facility] [address] [address]- 3968 May, [facility] [id number] [address]- 9304 27 May, 2014 [facility] [id number] [address]- 0141 17 May, 2014 [facility] [id number] [address]- 2222 17 May, 2014 [facility] [address] 3106 May, [facility] [id number] [address]- 7075 May, [facility] [place] [facility] [address] [id number] [place] [address]- 1902 May, [facility] [place] [facility] [address] [id number] [place] [address]- 2246 May, [facility] [place] [facility] [address] [id number] [place] [address]- 5067 Apr, [facility] [place] [facility] [address] [id number] [place] [address]- 5845 Apr, [facility] [place] [facility] [address] [id number] [place] [address]- 8024 Apr, [facility] [place] [facility] [address] [id number] [place] [address]- 8103 Apr, [facility] [place] [facility] [address] [id number] [place] [address]- 6698 Apr, [facility] [place] [facility] [address] [id number] [place] [address]- 8911 Mar, [facility] [place] [facility] [address] [id number] [place] [address]- 7457 Mar, [facility] [place] [facility] [address] [id number] [place] [address]- 3514 Mar, [facility] [place] [facility] [address] [id number] [place] [address]- 7300 Mar, [facility] [place] [facility] [address] [id number] [place] [address]- 5632 Mar, [facility] [place] [facility] [address] [id number] [place] [address]- 7553 Mar, [facility] [place] [facility] [address] [id number] [place] [address]- 5130 Feb, [facility] [place] [facility] [address] [id number] [place] [address]- 1429 Feb, [facility] [place] [facility] [address] [id number] [place] [address]- 4674 Feb, [facility] [place] [facility] [address] [id number] [place] [address]- 3977 Feb, [facility] [place] [facility] [address] [id number] [place] 3162 Feb, [facility] [place] [facility] [address] [id number] [place] 0224 Feb, [facility] [place] [facility] [address] [id number] [place] 3256 Feb, [facility] [place] [facility] [address] [id number] [place] [address]- 3396 Feb, [facility] [place] [facility] [address] [id number] [place] [address]- 3791 Feb, [facility] [place] [facility] [address] [id number] [place] [address]- 5534 Feb, [facility] [place] [facility] [address] [id number] [place] [address]- 1173 Jan, [facility] [place] [facility] [address] [id number] [place] [address]- 0983 Jan, [facility] [place] [facility] [address] [id number] [place] [address]- 7502 Jan, [facility] [place] [facility] [address] [id number] [place] [address]- 1597 Jan, [facility] [place] [facility] [address] [id number] [place] [address]- 0484 Jan, [facility] [place] [facility] [address] [id number] [place] [address]- 0762 Jan, [facility] [place] [facility] [address] [id number] [place] [address] Jan, [facility] [place] [facility] [address] [id number] [place] [address] Jan, [facility] [place] [facility] [address] [id number] [place] [address] Jan, 2013 [facility] [place] [facility] [address] [id number] [place] [address] Jan, [facility] [place] [facility] [address] [id number] [place] [address] Dec, [facility] [place] [facility] [address] [id number] [place] [address] Dec, [facility] [place] [facility] [address] [id number] [place] [address] Dec, [facility] [place] [facility] [address] [id number] [place] [address] Dec, [facility] [place] [facility] [address] [id number] [place] [address] Dec, [facility] [place] [facility] [address] [id number] [place] [address] Dec, [facility] [place] [facility] [address] [id number] [place] [address] Dec, [facility] [place] [facility] [address] [id number] [place] [address] Dec, [facility] [place] [facility] [address] [id number] [place] [address] Dec, [facility] [place] [facility] [address] [id number] [place] [address] Dec, [facility] [place] [facility] [address] [id number] [place] [address] Dec, [facility] [place] [facility] [address] [id number] [place] [address] Dec, [facility] [place] [facility] [address] [id number] [place] [address] Dec, [facility] [place] [facility] [address] [id number] [place] [address] Dec, [facility] [place] [facility] [address] [id number] [place] [address] Dec, [facility] [place] [facility] [address] [id number] [place] [address] 30 Nov, 2013 [facility] [place] [facility] [address] [id number] [place] [address] 30 Nov, 2013 [facility] [place] [facility] [address] [id number] [place] [address] Nov, 2013 [facility] [place] [facility] [address] [id number] [place] [address] 1035 26 Nov, 2013 [facility] [place] [facility] [address] [id number] [place] [address] 9321 24 Nov, 2013 [facility] [place] [facility] [address] [id number] [place] [address]- 0101 24 Nov, 2013 [facility] [place] [facility] [address] [id number] [place] [address]- 4500 23 Nov, 2013 [facility] [place] [facility] [address] [id number] [place] [address]- 6096 23 Nov, 2013 [facility] [place] [facility] [address] [id number] [place] [address]- 7666 18 Nov, 2013 [facility] [place] [facility] [address] [id number] [address] 18 Nov, 2013 [facility] [place] [facility] [address] [id number] [address] 51[address] 17 Nov, 2013 [facility] [place] [facility] [address] [id number] [place] [address]- 4695 17 Nov, 2013 [facility] [place] [facility] [address] [id number] [place] [address] 2156 11 Nov, 2013 [facility] [place] [facility] [address] [id number] [address] 11 Nov, 2013 [facility] [place] [facility] [address] [id number] [place] [address]- 6[address] 10 Nov, 2013 [facility] [place] [facility] [address] [id number] [place] [address]- 0882 10 Nov, 2013 [facility] [place] [facility] [address] [id number] [place] [address]- 4056 08 Nov, 2013 [facility] [place] [facility] [address] [id number] [place] [address]- 0128 Nov, [facility] [place] [facility] [address] [id number] [place] [address]- 7455 Sep, [facility] [place] [facility] [address] [id number] [place] [address]- 6594 Sep, [facility] [place] [facility] [address] [id number] [place] [address]- 5914 Sep, [facility] [place] [facility] [address] [id number] [place] [address]- 7008 Sep, [facility] [place] [facility] [address] [id number] [place] [address]- 7108 Sep, [facility] [place] [facility] [address] [id number] [place] [address]- 8616 Sep, [facility] [place] [facility] [address] [id number] [place] [address]- 6995 Aug, [facility] [place] [facility] [address] [id number] [place] [address]- 2895 Aug, [facility] [place] [facility] [address] [id number] [place] [address]- 3361 Aug, [facility] [place] [facility] [address] [id number] [place] [address]- 4018 Aug, [facility] [place] [facility] [address] [id number] [place] [address]- 1529 24 Aug, 2013 [facility] [place] [facility] [address] [id number] [place] [address]- 9673 Aug, [facility] [place] [facility] [address] [id number] [place] [address]- 6366 11 Aug, 2013 [facility] [place] [facility] [address] [id number] [place] [address]- 2224 Aug, [facility] [place] [facility] [address] [id number] [place] [address]- 5817 Aug, [facility] [place] [facility] [address] [id number] [place] [address]- 0480 Aug, [facility] [place] [facility] [address] [id number] [place] [address]- 9065 Aug, [facility] [place] [facility] [address] [id number] [place] [address]- 7199 July, [facility] [place] [facility] [address] [id number] [place] [address]- 4308 July, [facility] [place] [facility] [address] [id number] [place] [address]- 1804 Jun, [facility] [place] [facility] [address] [id number] [place] [address]- 3830 Jun, [facility] [place] [facility] [address] [id number] [place] [address]- 5589 Jun, [facility] [place] [facility] [address] [id number] [place] [address]- 9234 Jun, [facility] [place] [facility] [address] [id number] [place] [address]- 6133 18 Jun, 2013 [facility] [place] [facility] [address] [id number] [place] [address]- 9119 18 Jun, 2013 [facility] [place] [facility] [address] [id number] [place] [address]- 3637 15 Jun, 2013 [facility] [place] [facility] [address] [id number] [place] [address]- 7077 15 Jun, 2013 [facility] [place] [facility] [address] [id number] [place] [address]- 4395 Jun, [facility] [place] [facility] [address] [id number] [place] [address]- 9066 Jun, [facility] [place] [facility] [address] [id number] [place] [address]- 7289 Jun, [facility] [place] [facility] [address] [id number] [place] [address]- 4766 Jun, [facility] [place] [facility] [address] [id number] [place] [address]- 9857 May, [facility] [place] [facility] [address] [id number] [place] [address]- 4230 May, [facility] [place] [facility] [address] [id number] [place] [address]- 0062 May, [facility] [place] [facility] [address] [id number] [place] [address]- 6515 May, [facility] [place] [facility] [address] [id number] [place] [address]- 0316 May, [facility] [place] [facility] [address] [id number] [place] [address]- 3299 May, [facility] [place] [facility] [address] [id number] [place] [address]- 2991 May, [facility] [place] [facility] [address] [id number] [place] [address]- 4256 May, [facility] [place] [facility] [address] [id number] [address] 58[address] May, [facility] [place] [facility] [address] [id number] [place] [address]- 3463 May, [facility] [place] [facility] [address] [id number] [place] [address]- 2907 May, [facility] [place] [facility] [address] [id number] [place] [address]- 2244 May, [facility] [place] [facility] [address] [id number] [place] [address]- 8654 Apr, [facility] [place] [facility] [address] [id number] [place] [address]- 0136 Apr, [facility] [place] [facility] [address] [id number] [place] [address]- 2546 Apr, [facility] [place] [facility] [address] [facility] [id number] [place] [address]- 6855 Apr, [facility] [place] [facility] [address] [id number] [place] [address]- 6841 Apr, [facility] [place] [facility] [address] [facility] [id number] [place] [address]- 0803 Apr, [facility] [place] [facility] [address] [facility] [id number] [place] [address]- 3639 Apr, [facility] [place] [facility] [address] [facility] [id number] [place] [address]- 1163 Apr, [facility] [place] [facility] [address] [id number] [place] [address]- 8042 Apr, [facility] [place] [facility] [address] [facility] [id number] [place] [address]- 1571 Apr, [facility] [place] [facility] [address] [facility] [id number] [address]- 7203 Apr, [facility] [place] [facility] [address] [facility] [id number] [place] [address]- 2541 Apr, [facility] [place] [facility] [address] [facility] [id number] [place] [address]- 2301 Apr, [facility] [place] [facility] [address] [facility] [id number] [place] [address]- 9368 Apr, [facility] [place] [facility] [address] [facility] [id number] [place] [address]- 7694 Apr, [facility] [place] [facility] [address] [facility] [id number] [place] [address]- 0041 Apr, 2013 [facility] [address] [id number] [place] [address]- 2767 Apr, [facility] [place] [facility] [address] [id number] [place] [address]- 7679 Jan, [facility] [place] [facility] [address] [id number] [place] [address]- 6463 Jan, [facility] [place] [facility] [address] [id number] [place] [address]- 0240 08 Jan, 2013 [facility] [place] [facility] [address] [id number] [place] [address]- 9997 Jan, [facility] [place] [facility] [address] [id number] [place] [address]- 9471 Jan, [facility] [address] [facility] [id number] [place] [address]- 2253 Jan, [facility] [place] [facility] [address] [id number] [place] [address]- 7536 Jan, [facility] [place] [facility] [address] [id number] [place] [address]- 7952 Dec, [facility] [place] [facility] [address] [facility] [id number] [place] [address]- 1391 Dec, [facility] [place] [facility] [address] [id number] [place] [address]- 1207 08 Dec, 2012 [facility] [place] [facility] [address] [id number] [address]- 5153 10 Nov, 2012 [facility] [place] [facility] [address] [id number] [place] [address]- 8419 10 Nov, 2012 [facility] [place] [facility] [address] [facility] [id number] [address]- 6436 05 Nov, 2012 [facility] [place] [facility] [address] [facility] [id number] [place] [address]- 4915 04 Nov, 2012 [facility] [place] [facility] [address] [id number] [place] [address]- 4413 Oct, [facility] [place] [facility] [address] [id number] [place] [address]- 0070 Oct, [facility] [place] [facility] [address] [id number] [place] [address] 2548 Oct, [facility] [place] [facility] [address] [id number] [place] [address]- 1524 Oct, [facility] [place] [facility] [address] [id number] [place] [address]- 0177 Oct, [facility] [place] [facility] [address] [id number] [place] [address]- 7249 Sep, [facility] [place] [facility] [address] [id number] [place] [address]- 0640 Sep, [facility] [place] [facility] [address] [id number] [place] [address]- 2245 Sep, [facility] [place] [facility] [address] [id number] [place] [address]- 9884 Sep, [facility] [place] [facility] [address] [id number] [place] [address]- 2826 Sep, [facility] [place] [facility] [address] [id number] [place] [address]- 9259 Sep, [facility] [place] [facility] [address] [id number] [place] [address]- 7169 Sep, [facility] [place] [facility] [address] [id number] [place] [address]- 6304 Aug, [facility] [place] [facility] [address] [id number] [place] [address]- 7979 Aug, [facility] [place] [facility] [address] [id number] [place] [address]- 8835 July, [facility] [place] [facility] [address] [id number] [place] [address]- 0781 Jun, [facility] [address] [id number] [place] [address]- 9527 Jun, [facility] [address] [id number] [place] [address] Jun, [facility] [address] [id number] [place] [address]- 9613 Apr, [facility] [place] [facility] [address] [id number] [place] [address]- 2132 Apr, [facility] [address] [id number] [place] [address]- 6413 Apr, [facility] [address] [id number] [place] [address]- 4512 Mar, [facility] [address] [id number] [place] [address]- 6072 Mar, [facility] [address] [id number] [place] [address]- 3228 Mar, [facility] [address] [id number] [place] [address]- 2618 Mar, [facility] [address] [id number] [place] [address]- 9268 Mar, [facility] [address] [id number] [place] [address]- 9438 14 Feb, 2012 [facility] [place] [facility] [address] [id number] [place] [address]- 8873 14 Feb, 2012 [facility] [place] [facility] [address] [id number] [place] [address]- 0354 13 Jan, 2012 [facility] [place] [facility] [address] [id number] [place] [address]- 2453 13 Jan, 2012 [facility] [place] [facility] [address] [id number] [place] [address]- 9812 13 Jan, 2012 [facility] [place] [facility] [address] [id number] [place] [address]- 9787 13 Jan, 2012 [facility] [place] [facility] [address] [id number] [place] [address]- 7517 07 Jan, 2012 [facility] [place] [facility] [address] [id number] [place] [address] 07 Jan, 2012 [facility] [place] [facility] [address] [id number] [place] [address]- 3580 Jan, [facility] [place] [facility] [address] [id number] [place] [address]- 1745 Dec, [facility] [place] [facility] [address] [id number] [place] [address], [place] [address]453 Dec, [facility] [place] [facility] [address] [id number] [place] [address]- 3712 Dec, [facility] [place] [facility] [address] [id number] [place] [address]- 2403 Dec, [facility] [place] [facility] [address] [id number] [place] [address]- 7843 Dec, [facility] [place] [facility] [address] [id number] [place] [address]- 2206 Dec, [facility] [place] [facility] [address] [facility] [id number] [place] [address]- 7709 Dec, [facility] [place] [facility] [address] [id number] [place] [address]- 8895 Dec, [facility] [place] [facility] [address] [id number] [place] [address]- 6117 Dec, [facility] [place] [facility] [address] [id number] [place] [address]- 2507 Dec, [facility] [place] [facility] [address] [id number] [place] [address]- 3911 Oct, [facility] [place] [facility] [address] [id number] [place] [address]- 1712 Oct, [facility] [address] [id number] [place] [address]- 3718 14 Aug, 2011 [facility] [place] [facility] [address] [id number] [place] [address]- 8794 Aug, [facility] [place] [facility] [address] [id number] [place] [address]- 8958 July, [facility] [place] [facility] [address] [id number] [place] [address]- 7646 Jun, [facility] [address] [id number] [place] [address]- 0890 Jun, [facility] [place] [facility] [address] [id number] [place] [address]- 7196 May, [facility] [place] [facility] [address] [id number] [place] [address]- 0778 Apr, [facility] [place] [facility] [address] [id number] [place] [address]- 7622 Apr, [facility] [place] [facility] [address] [id number] [place] [address]- 8332 Mar, [facility] [place] [facility] [address] [id number] [place] [address]- 5915 Mar, [facility] [place] [facility] [address] [id number] [place] [address]- 8041 19 Feb, 2011 [facility] [place] [facility] [address] [id number] [place] [address]- 6601 15 Feb, 2011 [facility] [place] [facility] [address] [id number] [place] [address]- 8813 13 Feb, 2011 [facility] [place] [facility] [address] [id number] [place] [address]- 7548 13 Feb, 2011 [facility] [place] [facility] [address] [id number] [place] [address]- 8939 11 Jan, 2011 [facility] [place] [facility] [id number] [address]- 8016 Dec, [facility] [id number] [address]- 0803 Feb, [facility] [id number] [address]- 8157 Feb, [facility] [id number] [address]- 8781 Feb, [facility] [id number] [address]- 1598 Feb, [facility] [id number] [place] [address] 08384- 4800 Dec, [facility] [id number] [place] [address] 15390- 9223 Dec, [facility] [id number] [place] [address] 86395- 3140 Oct, [facility] [id number] [address]- 1866 Jun, [facility] [id number] [place] [address]57[address]- 5824 Feb, [facility] [id number] [address]- 4255 Feb, [facility] [id number] [address]- 4767 Feb, [facility] [id number] [address]- 4401 Dec, IMMUNIZATIONS No Known Immunizations SOCIAL HISTORY Never Assessed REASON FOR VISIT request return call PLAN OF CARE Activity Details Future/Pending Procedure SLEEP STUDY (HOSPITAL) VITAL SIGNS MEDICATIONS Unknown Medications RESULTS No [...]
--- OUTSIDE RECORDS SUMMARY | 2018-08-02 08:48 | XMS REPORT ---
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 Name Role Phone ZI CAI Unavailable PROBLEMS Type Condition ICD9-CM Code BAC26-FS Code Onset Dates Condition Status SNOMED Code Problem Presence of IVC filter Z95.828 Active 724836060 Problem Pelvic pain R10.2 Active 29816079 Problem 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 Active 080511748 Problem Obstructive sleep apnea G47.33 Active 08406995 Problem Morbid obesity E66.01 Active 972930136 Problem Excessive daytime sleepiness G47.19 Active 683081733691 Problem Peripheral edema R60.9 Active 122636091 Problem Thyroid nodule E04.1 Active 868910529 Problem Gastroesophageal reflux disease, esophagitis presence not specified K21.9 Active 779809169 Problem History of DVT (deep vein thrombosis) Z86.718 Active 801428344 Problem Hypertriglyceridemia E78.1 Active 294416173 Problem 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 Active 548463753 Problem Factor V Leiden D68.51 Active 069273068 Problem Generalized anxiety disorder F41.1 Active 192252579 ALLERGIES No Known Allergies ENCOUNTERS Encounter Location Date Diagnosis [facility] [address], [place] [address] Nov, [facility] [id number] [place] [address] 57438- 0182 Nov, Obstructive sleep apnea G47.33 ; Morbid obesity E66.01 and Gastroesophageal reflux disease, esophagitis presence not specified K21.9 [facility] [address] [place] [address] [id number] Nov, Encounter for examination of eyes and vision without abnormal findings Z01.00 [facility] [address] [place] [address] 16145- 4417 Oct, Thyroid nodule E04.1 and Screening for breast cancer Z12.31 [place] [id number] [place] [address] 69792- 3031 Oct, History of DVT (deep vein thrombosis) Z86.718 ; Thyroid nodule E04.1 and Gastroesophageal reflux disease, esophagitis presence not specified K21.9 [place] [address] 92273- 8791 Oct, [place] [id number] [place] [address] 14646- 6408 Sep, [place] [id number] [place] [address] 13765- 6376 Aug, [place] [id number] [place] [address] 21842- 0734 Aug, [place] [id number] [place] [address] 72195- 9185 Aug, Acute pain of left shoulder M25.512 and Thyroid nodule E04.1 [place] [id number] [place] [address] 85078- 6300 July, Superior glenoid labrum lesion of left shoulder, subsequent encounter S43.432D [place] [id number] [place] [address] 80213- 7578 Jun, History of DVT (deep vein thrombosis) Z86.718 [place] [id number] [place] [address] 63977- 5882 Jun, History of DVT (deep vein thrombosis) Z86.718 [place] [id number] [place] [address] 91798- 2036 Jun, Impingement syndrome, shoulder, left M75.42 [place] [id number] [place] [address] 80449- 2336 May, Subacromial bursitis of left shoulder joint M75.52 [place] [id number] [place] [address] 08510 2546 May, [place] [address] 96753 2546 May, Hypertriglyceridemia E78.1 ; residential (current) use of anticoagulants Z79.01 and Excessive daytime sleepiness G47.19 [place] [id number] [place] [address] 57822 2546 May, History of DVT (deep vein thrombosis) Z86.718 ; Generalized anxiety disorder F41.1 ; Hypertriglyceridemia E78.1 ; 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 ; Subacromial bursitis of left shoulder joint M75.52 and Excessive daytime sleepiness G47.19 [place] [id number] [place] [address] 08102 2546 May, [place] [id number] [place] [address] 46752 2546 May, 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 [place] [id number] [place] [address] 07145 2546 Apr, residential (current) use of anticoagulants Z79.01 [place] [id number] [place] [address] 80835 2546 Apr, 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 [place] [id number] [place] [address] 55349 2546 Apr, 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 [place] [id number] [place] [address] 42127 2546 Apr, [place] [id number] [place] [address] 91733 2546 Apr, 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 [place] [id number] [place] [address] 27433 2546 13 Apr, 2017 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 [facility] [address] [place] [address] 87028 2546 Apr, 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 [facility] [address] [place] [address] 54199 2546 Apr, 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 [facility] [id number] [place] [address] 03218 2546 Apr, residential (current) use of anticoagulants Z79.01 [facility] [id number] [place] [address] 72088 2546 Apr, 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 [facility] [id number] [place] [address] 53240 2546 Mar, 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 [facility] [id number] [place] [address] 89203 2546 Mar, [facility] [id number] [place] [address] 33559 2546 Mar, 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 [facility] [id number] [place] [address] [id number] Jan, Dental examination Z01.20 [facility] [id number] [place] [address] [id number] Jan, [facility] [id number] [place] [address] 54798 2546 Jan, residential (current) use of anticoagulants Z79.01 [facility] [address] [place] [address] 18840 2546 Jan, History of DVT (deep vein thrombosis) Z86.718 [facility] [id number] [place] [address] 14390- 2649 Jan, Generalized anxiety disorder F41.1 and Peripheral edema R60.9 [facility] [id number] [place] [address] 06878- 4175 Nov, History of DVT (deep vein thrombosis) Z86.718 [facility] [id number] [place] [address] 19183- 6794 Nov, 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 [facility] [id number] [place] [address] 08352 -9693 Nov, Acute non-recurrent maxillary sinusitis J01.00 [place] [address] 80161- 5583 Oct, 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 [place] [id number] [place] [address] 84693- 2247 Oct, Personal history of venous thrombosis and embolism Z86.718 [place] [id number] [place] [address] 43707- 6729 Sep, [place] [address] 04389- 1393 Sep, Personal history of venous thrombosis and embolism Z86.718 [facility] [id number] [place] [address] 30540- 6945 Sep, 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 [place] [id number] [place] [address] 22459- 4931 Sep, 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 [place] [id number] [place] [address] 55074- 3710 Sep, Generalized anxiety disorder F41.1 and History of DVT (deep vein thrombosis) Z86.718 [facility] [address] [place] [address] 27874- 4999 Aug, History of DVT (deep vein thrombosis) Z86.718 ; Generalized anxiety disorder F41.1 ; residential (current) use of anticoagulants Z79.01 ; Pelvic pain R10.2 ; Hypertriglyceridemia E78.1 ; Excessive daytime sleepiness G47.19 ; Colon cancer screening Z12.11 ; Screening for breast cancer Z12.39 ; Peripheral edema R60.9 and Gastroesophageal reflux disease, esophagitis presence not specified K21.9 [place] [id number] [place] [address] 76948- 8381 Aug, [place] [address] 28457- 5753 July, [address] 00298- 9756 July, History of DVT (deep vein thrombosis) Z86.718 [place] [address] 30973- 3186 Jun, Generalized anxiety disorder F41.1 [place] [address] 79015- 6514 Jun, History of DVT (deep vein thrombosis) Z86.718 [place] [address] 55708- 2932 Jun, History of DVT (deep vein thrombosis) Z86.718 [place] [id number] [place] [address] 41674- 1864 Jun, History of DVT (deep vein thrombosis) Z86.718 [place] [id number] [place] [address] 94836- 0993 Jun, History of DVT (deep vein thrombosis) Z86.718 [place] [address] 64381- 7306 May, History of DVT (deep vein thrombosis) Z86.718 [place] [id number] [place] [address] 67716- 1635 May, residential (current) use of anticoagulants Z79.01 [facility] [id number] [place] [address] 42646- 8170 May, residential (current) use of anticoagulants Z79.01 [facility] [id number] [place] [address] 61905- 8791 May, History of DVT (deep vein thrombosis) Z86.718 [facility] [id number] [place] [address] 25356 -7742 27 Apr, 2016 Bacterial conjunctivitis of left eye H10.9 and H/O motion sickness Z87.898 [facility] [address] 79728- 6311 24 Apr, 2016 History of DVT (deep vein thrombosis) Z86.718 [facility] [id number] [place] [address] 96658- 9032 23 Apr, 2016 History of DVT (deep vein thrombosis) Z86.718 [facility] [address] 54010- 4515 15 Apr, 2016 History of DVT (deep vein thrombosis) Z86.718 [facility] [id number] [place] [address] 41976- 9070 14 Apr, 2016 residential (current) use of anticoagulants Z79.01 [place] [id number] [place] [address] 09512- 2916 Mar, [place] [address] 09806- 2934 Mar, residential (current) use of anticoagulants Z79.01 [place] [id number] [place] [address] 63504- 7936 Mar, Hypertriglyceridemia E78.1 and 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 [place] [id number] [place] [address] 37721- 0506 Feb, residential (current) use of anticoagulants Z79.01 [place] [address] [place] [address] 47688- 1350 Feb, residential (current) use of anticoagulants Z79.01 [place] [id number] [place] [address] 76106- 3866 Feb, residential (current) use of anticoagulants Z79.01 [place] [id number] [place] [address] 98397- 3006 Dec, [place] [id number] [place] [address] 23399- 5654 Nov, [place] [address] 43562- 8860 Nov, History of DVT (deep vein thrombosis) Z86.718 ; Tremulousness R25.1 ; Generalized anxiety disorder F41.1 ; Peripheral edema R60.9 and Hypertriglyceridemia E78.1 [place] [id number] [place] [address] 45053- 3318 Oct, History of DVT (deep vein thrombosis) Z86.718 [place] [id number] [place] [address] 53468- 3246 Oct, [place] [id number] [place] [address] 92741- 7716 Sep, History of DVT (deep vein thrombosis) Z86.718 [place] [id number] [place] [address] 63787- 3059 Sep, 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 [place] [address], [place] [address]- 9216 July, [place] [id number] [place] [address] 57692- 1846 July, residential (current) use of anticoagulants Z79.01 [place] [address] [place] [address] 84394- 7936 July, residential (current) use of anticoagulants Z79.01 [facility] [id number] [place] [address] 88166- 0580 Jun, residential (current) use of anticoagulants Z79.01 [facility] [id number] [place] [address] 15518 -7917 Jun, Coccyx pain M53.3 ; Encounter for therapeutic drug level monitoring Z51.81 and 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 current use 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.01 [place] [id number] [place] [address] 81882- 9409 May, Abnormal mammogram R92.8 [facility] [place] [address] 45135 -4119 May, [facility] [place] [address] 60048 -2981 May, Acute vaginitis N76.0 and Encounter for other screening for malignant neoplasm of breast Z12.39 [place] [id number] [place] [address] 53784- 0019 Apr, [place] [address] 23596- 9835 Apr, [place] [id number] [place] [address] 89594- 8086 Apr, Peripheral edema R60.9 [place] [id number] [place] [address] 96142- 0906 Apr, 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 [place] [id number] [place] [address] 41781- 4071 Apr, Peripheral edema R60.9 and 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 [place] [id number] [place] [address] 87888- 4794 Apr, residential (current) use of anticoagulants Z79.01 [place] [id number] [place] [address] 59586- 9570 Apr, [place] [address] 93878- 5900 Apr, 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 [place] [id number] [place] [address] 40442- 1514 Apr, Peripheral edema R60.9 [place] [address] 15879- 1760 Mar, residential (current) use of anticoagulants Z79.01 [place] [address] 01348- 7256 Mar, residential (current) use of anticoagulants Z79.01 and Hypertriglyceridemia E78.1 [place] [id number] [place] [address] 66723- 0068 Mar, residential (current) use of anticoagulants Z79.01 [place] [id number] [place] [address] 54405- 7261 Mar, residential (current) use of anticoagulants Z79.01 [place] [id number] [place] [address] 95041- 3922 Mar, [place] [id number] [place] [address] 32957- 3210 Mar, 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 ; Hypertriglyceridemia E78.1 ; Personal history of venous thrombosis and embolism Z86.718 and Lump R22.9 [place] [address] [place] [address] 58015- 2398 Mar, Personal history of venous thrombosis and embolism Z86.718 [place] [id number] [place] [address] 30470- 8399 Mar, Personal history of venous thrombosis and embolism Z86.718 [place] [id number] [place] [address] 59856- 2755 Mar, [facility] [address], [place] [address]- 6936 Dec, Personal history of venous thrombosis and embolism Z86.718 [facility] [address], [place] [address] 2546 Dec, Personal history of venous thrombosis and embolism V12.51 [facility] [address], [place] [address]- 1906 Nov, Personal history of venous thrombosis and embolism V12.51 [facility] [address], [place] [address]- 5566 Nov, Personal history of venous thrombosis and embolism V12.51 [facility] [address], [place] [address]- 5986 Nov, Personal history of venous thrombosis and embolism V12.51 [facility] [address], [place] [address]- 5582 Nov, Personal history of venous thrombosis and embolism V12.51 [facility] [address], [place] [address]- 3394 Nov, [facility] [address], [place] [address]- 3440 Oct, Dysuria 788.1 [facility] [address], [place] [address]- 2197 Oct, Personal history of venous thrombosis and embolism V12.51 [facility] [id number] [address] 2546 Oct, [facility] [address], [place] [address]- 2546 Oct, Personal history of venous thrombosis and embolism V12.51 [facility] [id number] [address] 2546 Sep, Personal history of venous thrombosis and embolism V12.51 [facility] [address] [facility] [id number] 7661 Sep, Personal history of venous thrombosis and embolism V12.51 [facility] [address] [facility] [id number] [address]- 3546 Aug, Personal history of venous thrombosis and embolism V12.51 [facility] [address], [place] [address]- 0124 Aug, Personal history of venous thrombosis and embolism V12.51 [facility] [id number] [address]- 7427 Aug, Personal history of venous thrombosis and embolism V12.51 [facility] [id number] 7745 July, Generalized anxiety disorder 300.02 ; Abdominal pain, left lower quadrant 789.04 and Personal history of venous thrombosis and embolism V12.51 [facility] [id number] [address]- 9181 Jun, [facility] [address], [place] [address]- 5263 Jun, [facility] [address] [address]- 0980 May, [facility] [id number], [place] [address]- 8133 27 May, 2014 [facility] [id number] [address]- 1982 17 May, 2014 [facility] [id number] [address]- 7641 17 May, 2014 [facility] [address]- 5737 May, [facility] [id number] [address]- 5596 May, [facility] [address] [facility] [id number] [place] [address]- 6125 May, [facility] [place] [facility] [address] [id number] [place] [address]- 5195 May, [facility] [place] [facility] [address] [id number] [place] [address]- 9116 Apr, [facility] [place] [facility] [address] [id number] [place] [address]- 0386 Apr, [facility] [place] [facility] [address] [id number] [place] [address]- 1365 Apr, [facility] [place] [facility] [address] [id number] [place] [address]- 8909 Apr, [facility] [place] [facility] [address] [id number] [place] [address]- 2127 Apr, [facility] [place] [facility] [address] [id number] [place] [address]- 2086 Mar, [facility] [place] [facility] [address] [id number] [place] [address]- 6683 Mar, [facility] [place] [facility] [address] [id number] [place] [address]- 5842 Mar, [facility] [place] [facility] [address] [id number] [place] [address]- 2276 Mar, [facility] [place] [facility] [address] [id number] [place] [address] Mar, [facility] [place] [facility] [address] [id number] [place] [address] Mar, [facility] [place] [facility] [address] [id number] [place] [address] Feb, [facility] [place] [facility] [address] [id number] [place] [address] Feb, [facility] [place] [facility] [address] [id number] [address] Feb, [facility] [place] [facility] [address] [id number] [id number] Feb, [facility] [place] [facility] [address] [id number] [place] [address] Feb, [facility] [place] [facility] [address] [id number] [place] [address] Feb, [facility] [place] [facility] [address] [id number] [place] [address] Feb, [facility] [place] [facility] [address] [id number] [place] [address] Feb, [facility] [place] [facility] [address] [id number] [place] [address] Feb, [facility] [place] [facility] [address] [id number] [place] [address] Feb, [facility] [place] [facility] [address] [id number] [place] [address] Jan, [facility] [place] [facility] [address] [id number] [place] [address] Jan, [facility] [place] [facility] [address] [id number] [place] [address]- 7213 Jan, [facility] [place] [facility] [address] [id number], [place] [address] Jan, [facility] [place] [facility] [address] [id number], [place] [address] Jan, [facility] [place] [facility] [address] [id number] [place] [address]- 113[address] Jan, [facility] [place] [facility] [address] [id number] [place] [address] 9[address] Jan, [facility] [place] [facility] [address] [id number] [place] [address]- 5743 Jan, [facility] [place] [facility] [address] [id number] [place] [address]- 6314 Jan, 2013 [facility] [place] [facility] [address] [id number] [place] [address]- 3556 Jan, 2013 [facility] [place] [facility] [address] [id number] [place] [address]- 8478 Dec, [facility] [place] [facility] [address] [id number] [place] [address]- 3043 Dec, [facility] [place] [facility] [address] [id number] [place] [address]- 9270 Dec, [facility] [place] [facility] [address] [id number] [place] [address]- 3025 Dec, [facility] [place] [facility] [address] [id number] [place] [address]- 8228 Dec, [facility] [place] [facility] [address] [id number] [place] [address]- 4413 Dec, [facility] [place] [facility] [address] [id number] [place] [address]- 7370 Dec, [facility] [place] [facility] [address] [id number] [place] [address]- 1126 Dec, [facility] [place] [facility] [address] [id number] [place] [address]- 8467 Dec, [facility] [place] [facility] [address] [id number] [place] [address]- 1934 Dec, [facility] [place] [facility] [address] [id number] [place] [address]- 2806 Dec, [facility] [place] [facility] [address] [id number] [place] [address]- 0577 Dec, [facility] [place] [facility] [address] [id number] [place] [address]- 8110 Dec, [facility] [place] [facility] [address] [id number] [place] [address]- 9735 Dec, [facility] [place] [facility] [address] [id number] [place] [address]- 2927 Dec, [facility] [place] [facility] [address] [id number] [place] [address]- 1566 30 Nov, 2013 [facility] [place] [facility] [address] [id number] [place] [address]- 0036 30 Nov, 2013 [facility] [place] [facility] [address] [id number] [place] [address] 2546 Nov, 2013 [facility] [place] [facility] [address] [id number] [place] [address]- 3352 26 Nov, 2013 [facility] [place] [facility] [address] [id number] [place] [address]- 2476 24 Nov, 2013 [facility] [place] [facility] [address] [id number] [place] [address]- 5122 24 Nov, 2013 [facility] [place] [facility] [address] [id number] [place] [address]- 8542 23 Nov, 2013 [facility] [place] [facility] [address] [id number] [place] [address]- 0212 23 Nov, 2013 [facility] [place] [facility] [address] [id number] [place] [address]- 5988 18 Nov, 2013 [facility] [place] [facility] [address] [id number], [place] [address]- 2555 18 Nov, 2013 [facility] [place] [facility] [address] [id number], [place] [address]- 9021 17 Nov, 2013 [facility] [place] [facility] [address] [id number] [place] [address]- 2546 17 Nov, 2013 [facility] [place] [facility] [address] [id number] [place] [address]- 2548 11 Nov, 2013 [facility] [place] [facility] [address] [id number], [place] [address]- 4517 11 Nov, 2013 [facility] [place] [facility] [address] [id number], [place] [address]- 7693 10 Nov, 2013 [facility] [place] [facility] [address] [id number] [place] [address]- 5381 10 Nov, 2013 [facility] [place] [facility] [address] [id number] [place] [address]- 8216 08 Nov, 2013 [facility] [place] [facility] [address] [id number] [place] [address]- 3124 Nov, [facility] [place] [facility] [address] [id number] [place] [address]- 3093 Sep, [facility] [place] [facility] [address] [id number] [place] [address]- 6655 Sep, [facility] [place] [facility] [address] [id number] [place] [address]- 1563 Sep, [facility] [place] [facility] [address] [id number] [place] [address]- 0476 Sep, [facility] [place] [facility] [address] [id number] [place] [address]- 8014 Sep, [facility] [place] [facility] [address] [id number] [place] [address]- 3946 Sep, [facility] [place] [facility] [address] [id number] [place] [address]- 9209 Aug, [facility] [place] [facility] [address] [id number] [place] [address]- 5936 Aug, [facility] [place] [facility] [address] [id number] [place] [address]- 2698 Aug, [facility] [place] [facility] [address] [id number] [place] [address]- 8087 Aug, [facility] [place] [facility] [address] [id number] [place] [address]- 0027 24 Aug, 2013 [facility] [place] [facility] [address] [id number] [place] [address]- 5503 Aug, [facility] [place] [facility] [address] [id number] [place] [address]- 1928 11 Aug, 2013 [facility] [place] [facility] [address] [id number] [place] [address]- 2162 Aug, [facility] [place] [facility] [address] [id number] [place] [address]- 5942 Aug, [facility] [place] [facility] [address] [id number] [place] [address]- 2647 Aug, [facility] [place] [facility] [address] [id number] [place] [address]- 1597 Aug, [facility] [place] [facility] [address] [id number] [place] [address]- 5574 July, [facility] [place] [facility] [address] [id number] [place] [address]- 7545 July, [facility] [place] [facility] [address] [id number] [place] [address]- 7022 Jun, [facility] [place] [facility] [address] [id number] [place] [address]- 8318 Jun, [facility] [place] [facility] [address] [id number] [place] [address]- 1817 Jun, [facility] [place] [facility] [address] [id number] [place] [address]- 9358 Jun, [facility] [place] [facility] [address] [id number] [place] [address]- 7945 Jun, [facility] [place] [facility] [address] [id number] [place] [address]- 9632 18 Jun, 2013 [facility] [place] [facility] [address] [id number] [place] [address]- 5335 15 Jun, 2013 [facility] [place] [facility] [address] [id number] [place] [address]- 4303 15 Jun, 2013 [facility] [place] [facility] [address] [id number] [place] [address]- 0860 Jun, [facility] [place] [facility] [address] [id number] [place] [address]- 7235 Jun, [facility] [place] [facility] [address] [id number] [place] [address]- 1434 Jun, [facility] [place] [facility] [address] [id number] [place] [address]- 4008 Jun, [facility] [place] [facility] [address] [id number] [place] [address]- 0906 May, [facility] [place] [facility] [address] [id number] [place] [address]- 3630 May, [facility] [place] [facility] [address] [id number] [place] [address]- 9625 May, [facility] [place] [facility] [address] [id number] [place] [address]- 5900 May, [facility] [place] [facility] [address] [id number] [place] [address]- 8821 May, [facility] [place] [facility] [address] [id number] [place] [address]- 5088 May, [facility] [place] [facility] [address] [id number] [place] [address]- 5936 May, [facility] [place] [facility] [address] [id number] [place] [address]- 8450 May, [facility] [place] [facility] [address] [id number], [place] [address]- 9351 May, [facility] [place] [facility] [address] [id number] [place] [address]- 3075 May, [facility] [place] [facility] [address] [id number] [place] [address]- 0762 May, [facility] [place] [facility] [address] [id number] [place] [address]- 8858 May, [facility] [place] [facility] [address] [id number] [place] [address]- 5739 Apr, [facility] [place] [facility] [address] [id number] [place] [address]- 6406 Apr, [facility] [place] [facility] [address] [id number] [place] [address]- 2546 Apr, [facility] [place] [facility] [address] [id number] [place] [address]- 0842 Apr, [facility] [place] [facility] [address] [id number] [place] [address]- 2540 Apr, [facility] [place] [facility] [address] [facility] [id number] [place] [address]- 6445 Apr, [facility] [place] [facility] [address] [facility] [id number] [place] [address]- 1822 Apr, [facility] [place] [facility] [address] [facility] [id number] [place] [address]- 3350 Apr, [facility] [place] [facility] [address] [id number] [place] [address]- 2077 Apr, [facility] [place] [facility] [address] [facility] [id number] [place] [address]- 5643 Apr, [facility] [place] [facility] [address] [facility] [id number] [place] [address]- 7918 Apr, [facility] [place] [facility] [address] [facility] [id number], [place] [address]- 2543 Apr, [facility] [place] [facility] [address] [facility] [id number] [place] [address]- 6506 Apr, [facility] [place] [facility] [address] [facility] [id number] [place] [address]- 6806 Apr, [facility] [place] [facility] [address] [facility] [id number] [place] [address]- 3301 Apr, [facility] [place] [facility] [address] [facility] [id number], [place] [address]- 0118 Apr, 2013 [facility] [address] [id number] [place] [address]- 8439 Apr, [facility] [place] [facility] [address] [id number], [place] [address]- 3415 Jan, [facility] [place] [facility] [address] [facility] [id number] [place] [address]- 1536 Jan, [facility] [place] [facility] [address] [id number], [place] [address]- 6807 08 Jan, 2013 [facility] [place] [facility] [address] [facility] [id number] [place] [address]- 2933 Jan, [facility] [place] [facility] [address] [facility] [id number] [place] [address]- 5829 Jan, [facility] [address] [facility] [id number], [place] [address]- 2429 Jan, [facility] [place] [facility] [address] [facility] [id number] [place] [address]- 9513 Jan, [facility] [place] [facility] [address] [facility] [id number], [place] [address]- 5027 Dec, [facility] [place] [facility] [address] [facility] [id number], [place] [address]- 7838 Dec, [facility] [place] [facility] [address] [facility] [id number], [place] [address]- 4491 08 Dec, 2012 [facility] [place] [facility] [address] [id number], [place] [address]- 5727 10 Nov, 2012 [facility] [place] [facility] [address] [id number], [place] [address]- 6969 10 Nov, 2012 [facility] [place] [facility] [address] [facility] [id number], [place] [address]- 9342 05 Nov, 2012 [facility] [place] [facility] [address] [facility] [id number], [place] [address]- 2477 04 Nov, 2012 [facility] [place] [facility] [address] [id number] [place] [address]- 0076 Oct, [facility] [place] [facility] [address] [id number] [place] [address]- 3109 Oct, [facility] [place] [facility] [address] [id number] [place] [address]- 9482 Oct, [facility] [place] [facility] [address] [id number] [place] [address]- 0790 Oct, [facility] [place] [facility] [address] [id number] [place] [address]- 4138 Oct, [facility] [place] [facility] [address] [id number] [place] [address]- 8090 Sep, [facility] [place] [facility] [address] [id number] [place] [address]- 5213 Sep, [facility] [place] [facility] [address] [id number] [place] [address]- 3240 Sep, [facility] [place] [facility] [address] [id number] [place] [address]- 5615 Sep, [facility] [place] [facility] [address] [id number] [place] [address]- 7510 Sep, [facility] [place] [facility] [address] [id number] [place] [address]- 4071 Sep, [facility] [place] [facility] [address] [id number] [place] [address]- 4684 Sep, [facility] [place] [facility] [address] [id number] [place] [address]- 8992 Aug, [facility] [place] [facility] [address] [id number] [place] [address]- 4314 Aug, [facility] [place] [facility] [address] [id number] [place] [address]- 0694 July, [facility] [place] [facility] [address] [id number] [place] [address]- 3976 Jun, [facility] [address] [id number] [place] [address]- 9553 Jun, [facility] [place] [facility] [address] [id number] [place] [address]- 8571 Jun, [facility] [address] [id number] [place] [address]- 4232 Apr, [facility] [place] [facility] [address] [id number] [place] [address]- 0137 Apr, [facility] [address] [id number] [place] [address]- 3278 Apr, [facility] [address] [id number] [place] [address]- 0219 Mar, [facility] [place] [facility] [address] [id number] [place] [address]- 3307 Mar, [facility] [place] [facility] [address] [id number] [place] [address]- 3672 Mar, [facility] [address] [id number] [place] [address]- 5338 Mar, [facility] [address] [id number] [place] [address]- 8742 Mar, [facility] [address] [id number] [place] [address]- 0086 14 Feb, 2012 [facility] [place] [facility] [address] [id number] [place] [address]- 8819 14 Feb, 2012 [facility] [place] [facility] [address] [id number] [place] [address]- 5016 13 Jan, 2012 [facility] [place] [facility] [address] [id number] [place] [address]- 5304 13 Jan, 2012 [facility] [place] [facility] [address] [id number] [place] [address]- 3674 13 Jan, 2012 [facility] [place] [facility] [address] [id number] [place] [address]- 3665 13 Jan, 2012 [facility] [place] [facility] [address] [id number] [place] [address]- 9896 07 Jan, 2012 [facility] [place] [facility] [address] [id number] [place] [address]- 5556 07 Jan, 2012 [facility] [place] [facility] [address] [id number] [place] [address]- 2959 06 Jan, 2012 [facility] [place] [facility] [address] [id number] [place] [address]- 7444 31 Dec, 2011 [facility] [place] [facility] [address] [id number] [place] [address], [place] [address]- 1114 31 Dec, 2011 [facility] [place] [facility] [address] [id number] [place] [address]- 9003 Dec, [facility] [place] [facility] [address] [id number] [place] [address]- 9858 Dec, [facility] [place] [facility] [address] [id number] [place] [address]- 9213 Dec, [facility] [place] [facility] [address] [facility] [id number] [place] [address]- 4034 Dec, [facility] [place] [facility] [address] [facility] [id number] [place] [address]- 2704 Dec, [facility] [place] [facility] [address] [id number] [place] [address]- 3830 Dec, [facility] [place] [facility] [address] [id number] [place] [address]- 6803 Dec, [facility] [place] [facility] [address] [id number] [place] [address]- 4565 Dec, [facility] [place] [facility] [address] [facility] [id number] [place] [address]- 8770 Oct, [facility] [place] [facility] [address] [facility] [id number] [place] [address]- 9756 Oct, [facility] [address] [id number] [place] [address]- 6662 14 Aug, 2011 [facility] [place] [facility] [address] [id number] [place] [address]- 6276 Aug, [facility] [place] [facility] [address] [id number] [place] [address]- 0886 July, [facility] [place] [facility] [address] [id number] [place] [address]- 2946 Jun, [facility] [place] [facility] [address] [id number] [place] [address]- 1306 Jun, [facility] [place] [facility] [address] [id number] [place] [address]- 0826 May, [facility] [place] [facility] [address] [id number] [place] [address]- 5606 Apr, [facility] [place] [facility] [address] [id number] [place] [address]- 4486 Apr, [facility] [place] [facility] [address] [id number] [place] [address]- 9362 Mar, [facility] [place] [facility] [address] [id number] [place] [address]- 5636 Mar, [facility] [place] [facility] [address] [id number] [place] [address]- 6116 19 Feb, 2011 [facility] [place] [facility] [address] [id number] [place] [address]- 5946 15 Feb, 2011 [facility] [place] [facility] [address] [id number] [place] [address]- 7813 13 Feb, 2011 [facility] [place] [facility] [address] [id number] [place] [address]- 6186 13 Feb, 2011 [facility] [place] [facility] [address] [id number] [place] [address]- 7176 11 Jan, 2011 [facility] [place] [facility] [id number], [place] [address]- 1187 Dec, [facility] [id number] [address]- 8529 Feb, [facility] [id number] 5179 Feb, [facility] [id number] [place] [address]- 7992 Feb, [facility] [id number] [place] [address]- 3420 Feb, [facility] [id number] [place] [address] 14709- 5700 Dec, [facility] [id number] [place] [address] [phone] Dec, [facility] [id number] [place] [address] [phone] Oct, [facility] [id number] [place] [address] [phone] Jun, [facility] [id number] [place] [address] [phone] Feb, [facility] [id number] [phone] Feb, [facility] [id number] [place] [phone] Feb, [facility] [id number] [phone] Dec, IMMUNIZATIONS No Known Immunizations SOCIAL HISTORY Never Assessed REASON FOR VISIT Pain (acute) shoulder-awoods PLAN OF CARE Activity Details Follow Up prn PCP Rene Reason: VITAL SIGNS Height 64 in 2017-09-17 Weight 194.3 lbs 2017-09-17 Temperature 98.5 degrees Fahrenheit 2017-09-17 Heart Rate 105 bpm 2017-09-17 Respiratory Rate 2017-09-17 BMI 33.35 kg/m2 2017-09-17 Blood pressure systolic 124 mmHg 2017-09-17 Blood pressure diastolic 78 mmHg 2017-09-17 MEDICATIONS Medication Instructions Dosage Frequency Start Date End Date Duration Status Hydrochlorothiazide 50 MG TAKE ONE TABLET BY MOUTH ONCE DAILY 90 Active Ondansetron 4 MG Orally every 8 hrs PRN 1 tablet on the tongue and allow to dissolve Apr, 5 days Not-Taking Oxycodone HCl 5 MG/5ML Orally every 6 hrs 5 ml as needed 6h Aug, Sep, 10 days Active Tylenol 325 MG Orally every 6 hrs 1 tablet as needed 6h Not-Taking Eliquis 5 mg Orally 2 times a day 1 tablet 12h May, 30 days Active Vistaril 50 MG TAKE ONE CAPSULE BY MOUTH EVERY 6 HOURS NEEDED 30 Active Omeprazole 10 MG Orally Once a day 1 capsule 24h Active Lexapro 10 MG TAKE ONE TABLET BY MOUTH ONCE DAILY Active RESULTS No Results PROCEDURES No Known procedures INSTRUCTIONS MEDICATIONS ADMINISTERED No Known Medications MEDICAL (GENERAL) HISTORY Type Description Date Medical History obesity Medical History Hematologic disorder factor clotting problem Medical History DVT's Medical History Torn Rotator Cuff, repaired 09/23/17 Surgical History Lap Band 10/2012 Surgical History section 1985, 1987 Surgical History cholecystectomy Surgical History [place] Filter 06/2009 Surgical History Left leg exploratory surgery r/t clot 1987 Surgical History left shoulder surgery 09/14/17 Hospitalization History Ruptured Ovarian Cyst with abd bleeding 11/2009
--- OUTSIDE RECORDS SUMMARY | 2018-08-02 08:48 | XMS REPORT ---
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 Name Role Phone ELMO BRUNOY Unavailable PROBLEMS Type Condition ICD9-CM Code XYW71-LM Code Onset Dates Condition Status SNOMED Code Problem Presence of IVC filter Z95.828 Active 829404868 Problem Pelvic pain R10.2 Active 16102300 Problem 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 Active 168375439 Problem Obstructive sleep apnea G47.33 Active 24966161 Problem Morbid obesity E66.01 Active 505879534 Problem Excessive daytime sleepiness G47.19 Active 034952180739 Problem Peripheral edema R60.9 Active 410161627 Problem Thyroid nodule E04.1 Active 523145975 Problem Gastroesophageal reflux disease, esophagitis presence not specified K21.9 Active 316349616 Problem History of DVT (deep vein thrombosis) Z86.718 Active 657733472 Problem Hypertriglyceridemia E78.1 Active 148338366 Problem 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 Active 811308930 Problem Factor V Leiden D68.51 Active 165586062 Problem Generalized anxiety disorder F41.1 Active 986998199 ALLERGIES No Information ENCOUNTERS Encounter Location Date Diagnosis [facility] [id number] [place] [address] 01259- 2945 Nov, [facility] [id number] [place] [address] 25147- 4529 Nov, Obstructive sleep apnea G47.33 ; Morbid obesity E66.01 and Gastroesophageal reflux disease, esophagitis presence not specified K21.9 [facility] [address] [place] [address] [id number] 06 Nov, 2017 Encounter for examination of eyes and vision without abnormal findings Z01.00 [facility] [id number] [place] [address] 93537- 7195 Oct, Thyroid nodule E04.1 and Screening for breast cancer Z12.31 [facility] [address] [place] [address] 61625- 9673 Oct, History of DVT (deep vein thrombosis) Z86.718 ; Thyroid nodule E04.1 and Gastroesophageal reflux disease, esophagitis presence not specified K21.9 [facility] [facility] [address] [place] [address] 03592- 9928 Oct, [facility] [facility] [address] [place] [address] 77457- 7045 Sep, [place] [address] [place] [address] 75694- 7683 Aug, [facility] [address] [place] [address] 21178- 3780 Aug, [place] [address] [place] [address] 61874- 5985 Aug, Acute pain of left shoulder M25.512 and Thyroid nodule E04.1 [place] [address] [place] [address] 21105- 1123 July, Superior glenoid labrum lesion of left shoulder, subsequent encounter S43.432D [place] [address] [place] [address] 62423- 7916 Jun, History of DVT (deep vein thrombosis) Z86.718 [place] [address] [place] [address] 50116- 6670 Jun, History of DVT (deep vein thrombosis) Z86.718 [place] [address] [place] [address] 16697- 7636 Jun, Impingement syndrome, shoulder, left M75.42 [place] [address] [place] [address] 48154- 2946 May, Subacromial bursitis of left shoulder joint M75.52 [facility] [address] [place] [address] 53694 2543 May, [place] [address] [address]992 2546 May, Hypertriglyceridemia E78.1 ; 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 and Excessive daytime sleepiness G47.19 [place] [address] 8[address]35 2546 May, History of DVT (deep vein thrombosis) Z86.718 ; Generalized anxiety disorder F41.1 ; Hypertriglyceridemia E78.1 ; 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 ; Subacromial bursitis of left shoulder joint M75.52 and Excessive daytime sleepiness G47.19 [place] [id number] [place] [address] 70566 2546 May, [place] [address] 84079 2548 May, [facility] (current) use of anticoagulants Z79.01 [place] [address] [place] [address] 68146 2546 Apr, 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 [place] [address] [place] [address] 27270 2546 Apr, [facility] (current) use of anticoagulants Z79.01 [place] [address] [place] [address] 77146 2546 Apr, [facility] (current) use of anticoagulants Z79.01 [place] [address] [place] [address] 90699 2546 Apr, [place] [address] 61999 2546 Apr, 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 [place] [id number] [place] [address] 36538 2546 13 Apr, 2017 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 [facility] [address] [place] [address] 33753 2546 Apr, 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 [facility] [address] [place] [address] 60164 2546 Apr, [facility] (current) use of anticoagulants Z79.01 [facility] [id number] [place] [address] 45207 2546 Apr, [facility] (current) use of anticoagulants Z79.01 [facility] [id number] [place] [address] 80164 2546 Apr, [facility] (current) use of anticoagulants Z79.01 [facility] [id number] [place] [address] 67414 2546 Mar, 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 [facility] [id number] [place] [address] 00660 2546 Mar, [facility] [id number] [place] [address] 27416 2546 Mar, 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 [facility] [id number] [place] [address] [id number] Jan, Dental examination Z01.20 [facility] [id number] [place] [address] [id number] Jan, [facility] [address] [place] [address] 17408 2546 Jan, 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 [facility] [address] [place] [address] 08136 2546 Jan, History of DVT (deep vein thrombosis) Z86.718 [facility] [id number] [place] [address] 86419- 8004 Jan, Generalized anxiety disorder F41.1 and Peripheral edema R60.9 [facility] [address] [place] [address] 18916- 5095 Nov, History of DVT (deep vein thrombosis) Z86.718 [facility] [id number] [place] [address] 38317- 1788 Nov, 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 [facility] [id number] [place] [address] 37731 -1266 Nov, Acute non-recurrent maxillary sinusitis J01.00 [place] [address] 82440- 0926 Oct, [facility] (current) use of anticoagulants Z79.01 [place] [address] [place] [address] 17474- 8455 Oct, Personal history of venous thrombosis and embolism Z86.718 [place] [address] [place] [address] 84472- 2486 Sep, [place] [address] 58152- 9052 Sep, Personal history of venous thrombosis and embolism Z86.718 [facility] [id number] [place] [address] 29644- 4338 Sep, 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 [place] [address] [place] [address] 59268- 7540 Sep, 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 [facility] [address] [place] [address] 40152- 7837 Sep, Generalized anxiety disorder F41.1 and History of DVT (deep vein thrombosis) Z86.718 [facility] [address] [place] [address] 02785- 1664 Aug, History of DVT (deep vein thrombosis) Z86.718 ; Generalized anxiety disorder F41.1 ; 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 ; Pelvic pain R10.2 ; Hypertriglyceridemia E78.1 ; Excessive daytime sleepiness G47.19 ; Colon cancer screening Z12.11 ; Screening for breast cancer Z12.39 ; Peripheral edema R60.9 and Gastroesophageal reflux disease, esophagitis presence not specified K21.9 [place] [address] 67178- 9280 Aug, [place] [address] 37452- 3868 July, [address] 06493- 2833 July, History of DVT (deep vein thrombosis) Z86.718 [place] [address] 85394- 8886 Jun, Generalized anxiety disorder F41.1 [place] [address] 26561- 2352 Jun, History of DVT (deep vein thrombosis) Z86.718 [place] [address] 01910- 1448 Jun, History of DVT (deep vein thrombosis) Z86.718 [place] [address] [place] [address] 92001- 5651 Jun, History of DVT (deep vein thrombosis) Z86.718 [place] [address] [place] [address] 88833- 5791 Jun, History of DVT (deep vein thrombosis) Z86.718 [place] [address] 41627- 6338 May, History of DVT (deep vein thrombosis) Z86.718 [place] [address] [place] [address] 30951- 0175 May, [facility] (current) use of anticoagulants Z79.01 [facility] [address] [place] [address] 89221- 3690 May, 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 [facility] [id number] [place] [address] 53126- 7471 May, History of DVT (deep vein thrombosis) Z86.718 [facility] [id number] [place] [address] 32494 -1902 27 Apr, 2016 Bacterial conjunctivitis of left eye H10.9 and H/O motion sickness Z87.898 [facility] [address] 45315- 3532 24 Apr, 2016 History of DVT (deep vein thrombosis) Z86.718 [facility] [id number] [place] [address] 94388- 3064 Apr, History of DVT (deep vein thrombosis) Z86.718 [facility] [address] [place] [address] 41468- 7264 15 Apr, 2016 History of DVT (deep vein thrombosis) Z86.718 [facility] [address] [place] [address] 07371- 3332 14 Apr, 2016 [facility] (current) use of anticoagulants Z79.01 [place] [address] [place] [address] 89101- 0936 Mar, [facility] [address] 85784- 2549 Mar, 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 [place] [address] 24261 2546 Mar, Hypertriglyceridemia E78.1 and [facility]PC (current) use of anticoagulants Z79.01 [place] [address] [place] [address] 97380- 8086 Feb, [facility] (current) use of anticoagulants Z79.01 [place] [address] [place] [address] 81423- 8290 Feb, 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 [place] [address] [place] [address] 419984- 0816 Feb, 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 [place] [address] [place] [address] 18314- 2986 Dec, [place] [address] [place] [address] 93460- 7351 Nov, [place] [address] 286399- 7676 Nov, History of DVT (deep vein thrombosis) Z86.718 ; Tremulousness R25.1 ; Generalized anxiety disorder F41.1 ; Peripheral edema R60.9 and Hypertriglyceridemia E78.1 [place] [address] [place] [address] 84260- 5643 Oct, History of DVT (deep vein thrombosis) Z86.718 [place] [address] [place] [address] 36167- 2031 Oct, [place] [address] [place] [address] 72965- 2354 Sep, History of DVT (deep vein thrombosis) Z86.718 [place] [address] [place] [address] 52921- 7401 Sep, [facility]PC (current) use of anticoagulants Z79.01 [place] [address] [place] [address] 81483- 7306 July, [place] [id number] [place] [address] 04950- 4011 July, [facility] (current) use of anticoagulants Z79.01 [place] [address] [place] [address] 16573- 6377 July, [facility] (current) use of anticoagulants Z79.01 [facility] [address] [place] [address] 95333- 1456 Jun, [facility] (current) use of anticoagulants Z79.01 [facility] [id number] [place] [address] 11996 -8756 Jun, Coccyx pain M53.3 ; Encounter for therapeutic drug level monitoring Z51.81 and FPC current use 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.01 [place] [id number] [place] [address] 64202- 0323 May, Abnormal mammogram R92.8 [facility] [place] [address] 05685 -4331 May, [facility] [place] [address] [place] [address] 72824 -3195 May, Acute vaginitis N76.0 and Encounter for other screening for malignant neoplasm of breast Z12.39 [place] [address] [place] [address] 29494- 6787 Apr, [place] [address] [place] [address] 82119- 1320 Apr, [place] [address] [place] [address] 98453- 8206 Apr, Peripheral edema R60.9 [place] [address] [place] [address] 20290- 6969 Apr, [facility] (current) use of anticoagulants Z79.01 [place] [address] [place] [address] 24081- 5390 Apr, Peripheral edema R60.9 and 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 [place] [address] [place] [address] 32478- 4530 Apr, [facility] (current) use of anticoagulants Z79.01 [place] [id number] [place] [address] 22897- 5922 Apr, [place] [address] 38774- 3341 Apr, 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 [place] [address] [place] [address] 25550- 4706 Apr, Peripheral edema R60.9 [place] [address] 71197- 9196 Mar, 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 [place] [address] 67000- 2822 Mar, 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 and Hypertriglyceridemia E78.1 [place] [address] [place] [address] 44092- 0542 Mar, 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 [place] [address] [place] [address] 38721- 2050 Mar, 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 [place] [address] [place] [address] 57353- 7134 Mar, [place] [address] [place] [address] 76541- 0825 Mar, 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 ; Hypertriglyceridemia E78.1 ; Personal history of venous thrombosis and embolism Z86.718 and Lump R22.9 [place] [address] [place] [address] 36344- 1189 Mar, Personal history of venous thrombosis and embolism Z86.718 [place] [address] [place] [address] 27701- 5703 Mar, Personal history of venous thrombosis and embolism Z86.718 [place] [address] [place] [address] 54921- 9334 Mar, [facility] [address] [address]- 3498 Dec, Personal history of venous thrombosis and embolism Z86.718 [facility] [address] [address]- 0936 Dec, Personal history of venous thrombosis and embolism V12.51 [facility] [address] [address]- 4653 Nov, Personal history of venous thrombosis and embolism V12.51 [facility] [address] [place] [address] 55919- 0766 Nov, Personal history of venous thrombosis and embolism V12.51 [facility] [address] [address]- 7384 Nov, Personal history of venous thrombosis and embolism V12.51 [facility] [address] [address]- 0327 Nov, Personal history of venous thrombosis and embolism V12.51 [facility] [address] [address]- 1649 Nov, [facility] [address] [address]- 1120 Oct, Dysuria 788.1 [facility] [address] [address]- 3404 Oct, Personal history of venous thrombosis and embolism V12.51 [facility] [id number] [address] 2540 Oct, [facility] [address] [address]- 2546 Oct, Personal history of venous thrombosis and embolism V12.51 [facility] [address] [address]- 9237 Sep, Personal history of venous thrombosis and embolism V12.51 [facility] [address] [facility] [id number] [address]- 1233 Sep, Personal history of venous thrombosis and embolism V12.51 [facility] [id number] [address]- 8150 Aug, Personal history of venous thrombosis and embolism V12.51 [facility] [address] [address]- 9417 Aug, Personal history of venous thrombosis and embolism V12.51 [facility] [address] [facility] [id number] 7711 Aug, Personal history of venous thrombosis and embolism V12.51 [facility] [address] 4976 July, Generalized anxiety disorder 300.02 ; Abdominal pain, left lower quadrant 789.04 and Personal history of venous thrombosis and embolism V12.51 [facility] [address] [address]- 0694 Jun, [facility] [address] [address]- 3050 Jun, [facility] [address]- 7351 May, [facility] [id number] [address]- 5569 27 May, 2014 [facility] [id number]- 1125 17 May, 2014 [facility] [id number] [address]- 4484 17 May, 2014 [facility] [address]- 7865 May, [facility] [id number] [address]- 0583 May, [facility] [place] [facility] [address] [id number] [place] [address]- 5910 May, [facility] [place] [facility] [address] [id number] [place] [address]- 1828 May, [facility] [place] [facility] [address] [id number] [place] [address]- 4542 Apr, [facility] [place] [facility] [address] [id number] [place] [address]- 5382 Apr, [facility] [place] [facility] [address] [id number] [place] [address]- 0192 Apr, [facility] [place] [facility] [address] [id number] [place] [address]- 2379 Apr, [facility] [place] [facility] [address] [id number] [place] [address]- 0463 Apr, [facility] [place] [facility] [address] [id number] [place] [address]- 9529 Mar, [facility] [place] [facility] [address] [id number] [place] [address]- 5070 Mar, [facility] [place] [facility] [address] [id number] [place] [address]- 5802 Mar, [facility] [place] [facility] [address] [id number] [place] [address]- 6753 Mar, [facility] [place] [facility] [address] [id number] [place] [address]- 3568 Mar, [facility] [place] [facility] [address] [id number] [place] [address]- 2720 Mar, [facility] [place] [facility] [address] [id number] [place] [address]- 2520 Feb, [facility] [place] [facility] [address] [id number] [place] [address]- 2288 Feb, [facility] [place] [facility] [address] [id number] [place] [address]- 2488 Feb, [facility] [place] [facility] [address] [id number] [place] [address]- 7893 Feb, [facility] [place] [facility] [address] [id number] [place] 1594 Feb, [facility] [place] [facility] [address] [id number] [place] 2315 Feb, [facility] [place] [facility] [address] [id number] [place] 5713 Feb, [facility] [place] [facility] [address] [id number] [place] [address]- 2770 Feb, [facility] [place] [facility] [address] [id number] [place] [address]- 7236 Feb, [facility] [place] [facility] [address] [id number] [place] [address]- 8606 Feb, [facility] [place] [facility] [address] [id number] [place] [address]- 0597 Jan, [facility] [place] [facility] [address] [id number] [place] [address]- 4812 Jan, [facility] [place] [facility] [address] [id number] [place] [address]- 7106 Jan, [facility] [place] [facility] [address] [id number] [place] [address]- 0531 Jan, [facility] [place] [facility] [address] [id number] [place] [address]- 8671 Jan, [facility] [place] [facility] [address] [id number] [place] [address]- 7950 Jan, [facility] [place] [facility] [address] [id number] [place] [address]- 5856 Jan, [facility] [place] [facility] [address] [id number] [place] [address] Jan, [facility] [place] [facility] [address] [id number] [place] [address] Jan, 2013 [facility] [place] [facility] [address] [id number] [place] [address] Jan, [facility] [place] [facility] [address] [id number] [place] [address] Dec, [facility] [place] [facility] [address] [id number] [place] [address] Dec, [facility] [place] [facility] [address] [id number] [place] [address] Dec, [facility] [place] [facility] [address] [id number] [place] [address] Dec, [facility] [place] [facility] [address] [id number] [place] [address] Dec, [facility] [place] [facility] [address] [id number] [place] [address] Dec, [facility] [place] [facility] [address] [id number] [place] [address] Dec, [facility] [place] [facility] [address] [id number] [place] [address] Dec, [facility] [place] [facility] [address] [id number] [place] [address] Dec, [facility] [place] [facility] [address] [id number] [place] [address] Dec, [facility] [place] [facility] [address] [id number] [place] [address] Dec, [facility] [place] [facility] [address] [id number] [place] [address] [address] Dec, [facility] [place] [facility] [address] [id number] [place] [address] Dec, [facility] [place] [facility] [address] [id number] [place] [address] Dec, [facility] [place] [facility] [address] [id number] [place] [address] Dec, [facility] [place] [facility] [address] [id number] [place] [address] 30 Nov, 2013 [facility] [facility] [address] [id number] [place] [address] 30 Nov, 2013 [facility] [place] [facility] [address] [id number] [place] [address] Nov, 2013 [facility] [place] [facility] [address] [id number] [place] [address]- 2035 26 Nov, 2013 [facility] [place] [facility] [address] [id number] [place] [address]- 1440 24 Nov, 2013 [facility] [place] [facility] [address] [id number] [place] [address]- 5695 24 Nov, 2013 [facility] [place] [facility] [address] [id number] [place] [address]- 5230 23 Nov, 2013 [facility] [place] [facility] [address] [id number] [place] [address] 23 Nov, 2013 [facility] [place] [facility] [address] [id number] [place] [address]- 4181 18 Nov, 2013 [facility] [place] [address] [id number], [place] [address] 18 Nov, 2013 [facility] [address] [id number], [place] [address] 1110 17 Nov, 2013 [facility] [place] [facility] [address] [id number] [place] [address] 6085 17 Nov, 2013 [facility] [place] [facility] [address] [id number] [place] [address]- 8124 11 Nov, 2013 [facility] [place] [facility] [address] [id number], [place] [address]- 5992 11 Nov, 2013 [facility] [place] [address] [id number], [place] [address]- 7656 10 Nov, 2013 [facility] [place] [facility] [address] [id number] [place] [address]- 2553 10 Nov, 2013 [facility] [place] [facility] [address] [id number] [place] [address]- 4276 08 Nov, 2013 [facility] [place] [facility] [address] [id number] [place] [address]- 1269 Nov, [facility] [place] [facility] [address] [id number] [place] [address]- 9500 Sep, [facility] [place] [facility] [address] [id number] [place] [address]- 0799 Sep, [facility] [place] [facility] [address] [id number] [place] [address]- 1588 Sep, [facility] [place] [address] [id number] [place] [address]- 8409 Sep, [facility] [place] [facility] [address] [id number] [place] [address]- 8954 Sep, [facility] [place] [facility] [address] [id number] [place] [address]- 7799 Sep, [facility] [place] [facility] [address] [id number] [place] [address]- 4924 Aug, [facility] [place] [facility] [address] [id number] [place] [address]- 4686 Aug, [facility] [place] [facility] [address] [id number] [place] [address]- 8785 Aug, [facility] [place] [facility] [address] [id number] [place] [address]- 0621 Aug, [facility] [place] [facility] [address] [id number] [place] [address]- 5464 24 Aug, 2013 [facility] [place] [facility] [address] [id number] [place] [address]- 0406 Aug, [facility] [place] [address] [id number] [place] [address]- 9871 11 Aug, 2013 [facility] [place] [facility] [address] [id number] [place] [address]- 2734 Aug, [facility] [place] [address] [id number] [place] [address]- 4474 Aug, [facility] [address] [id number] [place] [address]- 7784 Aug, [facility] [address] [id number] [place] [address]- 6830 Aug, [facility] [address] [id number] [place] [address]- 9059 July, [facility] [address] [id number] [place] [address]- 8127 July, [facility] [place] [facility] [address] [id number] [place] [address]- 5064 Jun, [facility] [address] [id number] [place] [address]- 4485 Jun, [facility] [address] [id number] [place] [address]- 1867 Jun, [facility] [address] [id number] [place] [address]- 4488 Jun, [facility] [address] [id number] [place] [address]- 2289 18 Jun, 2013 [facility] [address] [id number] [place] [address]- 0328 18 Jun, 2013 [facility] [address] [id number] [place] [address]- 6127 15 Jun, 2013 [facility] [address] [id number] [place] [address]- 3855 15 Jun, 2013 [facility] [address] [id number] [place] [address]- 6319 Jun, [facility] [address] [id number] [place] [address]- 2111 Jun, [facility] [address] [id number] [place] [address]- 6669 Jun, [facility] [address] [id number] [place] [address]- 0754 Jun, [facility] [address] [id number] [place] [address]- 7244 May, [facility] [address] [id number] [place] [address]- 6433 May, [facility] [address] [id number] [place] [address]- 5568 May, [facility] [address] [id number] [place] [address]- 6431 May, [facility] [address] [id number] [place] [address]- 3369 May, [facility] [address] [id number] [place] [address]- 0044 May, [facility] [address] [id number] [place] [address]- 5477 May, [facility] [address] [id number] [place] [address]- 4505 May, [facility] [address] [id number], [place] [address]- 8224 May, [facility] [address] [id number] [place] [address]- 9283 May, [facility] [address] [id number] [place] [address]- 2154 May, [facility] [address] [id number] [place] [address]- 1946 May, [facility] [address] [id number] [place] [address]- 8371 Apr, [facility] [address] [id number] [place] [address]- 5706 Apr, [facility] [address] [id number] [place] [address]- 2546 Apr, [facility] [address] [facility] [id number] [place] [address]- 6224 Apr, [facility] [address] [id number] [place] [address]- 3022 Apr, [facility] [address] [facility] [id number] [place] [address]- 9842 Apr, [facility] [address] [facility] [id number] [place] [address]- 8986 Apr, [facility] [address] [facility] [id number] [place] [address]- 6899 Apr, [facility] [address] [id number] [place] [address]- 5311 Apr, [facility] [address] [facility] [id number] [place] [address]- 7982 Apr, [facility] [address] [facility] [id number], [place] [address]- 8759 Apr, [facility] [address] [facility] [id number], [place] [address]- 2541 Apr, [facility] [address] [facility] [id number] [place] [address]- 6676 Apr, [facility] [address] [facility] [id number] [place] [address]- 7399 Apr, [facility] [address] [facility] [id number], [place] [address]- 9268 Apr, [facility] [address] [facility] [id number], [place] [address]- 0054 Apr, 2013 [facility] [address] [id number] [place] [address]- 6279 Apr, [facility] [address] [id number] [place] [address]- 1964 Jan, [facility] [address] [id number] [place] [address]- 8441 Jan, [facility] [address] [id number] [place] [address]- 8053 08 Jan, 2013 [facility] [address] [id number] [place] [address]- 5967 Jan, [facility] [address] [id number] [place] [address]- 7578 Jan, [facility] [address] [facility] [id number] [place] [address]- 3789 Jan, [facility] [address] [id number] [place] [address]- 3608 Jan, [facility] [address] [id number] [place] [address]- 9946 Dec, [facility] [address] [facility] [id number] [place] [address]- 8359 Dec, [facility] [address] [id number] [place] [address]- 8546 08 Dec, 2012 [facility] [address] [id number], [place] [address]- 8391 10 Nov, 2012 [facility] [address] [id number], [place] [address]- 0458 10 Nov, 2012 [facility] [address] [facility] [id number], [place] [address]- 9055 05 Nov, 2012 [facility] [address] [facility] [id number], [place] [address]- 4104 04 Nov, 2012 [facility] [address] [id number] [place] [address]- 9248 Oct, [facility] [address] [id number] [place] [address]- 4129 Oct, [facility] [address] [id number] [place] [address] 2544 Oct, [facility] [address] [id number] [place] [address]- 2015 Oct, [facility] [address] [id number] [place] [address]- 5413 Oct, [facility] [address] [id number] [place] [address]- 4579 Sep, [facility] [address] [id number] [place] [address]- 6655 Sep, [facility] [address] [id number] [place] [address]- 1717 Sep, [facility] [address] [id number] [place] [address]- 8976 Sep, [facility] [address] [id number] [place] [address]- 4945 Sep, [facility] [address] [id number] [place] [address]- 6831 Sep, [facility] [address] [id number] [place] [address]- 7723 Sep, [facility] [address] [id number] [place] [address]- 7921 Aug, [facility] [address] [id number] [place] [address]- 0905 Aug, [facility] [address] [id number] [place] [address]- 6258 July, [facility] [address] [id number] [place] [address]- 3791 Jun, [facility] [address] [id number] [place] [address]- 9235 Jun, [facility] [address] [id number] [place] 8102 Jun, [facility] [address] [id number] [place] [address]- 0449 Apr, [facility] [address] [id number] [place] [address]- 5561 Apr, [facility] [address] [id number] [place] [address]- 0160 Apr, [facility] [address] [id number] [place] [address]- 2834 Mar, [facility] [address] [id number] [place] [address]- 3759 Mar, [facility] [address] [id number] [place] [address]- 0889 Mar, [facility] [address] [id number] [place] [address]- 6580 Mar, [facility] [address] [id number] [place] [address]- 7400 Mar, [facility] [address] [id number] [place] [address]- 9259 14 Feb, 2012 [facility] [address] [id number] [place] [address]- 6151 14 Feb, 2012 [facility] [address] [id number] [place] [address]- 9455 13 Jan, 2012 [facility] [address] [id number] [place] [address]- 4836 13 Jan, 2012 [facility] [address] [id number] [place] [address]- 5824 13 Jan, 2012 [facility] [address] [id number] [place] [address]- 6079 13 Jan, 2012 [facility] [address] [id number] [place] [address]- 3525 07 Jan, 2012 [facility] [address] [id number] [place] 2756 07 Jan, 2012 [facility] [address] [id number] [place] [address]- 6240 Jan, [facility] [address] [id number] [place] [address]- 0761 Dec, [facility] [address] [id number] [place] [address], [place]- 4163 Dec, [facility] [address] [id number] [place] [address]- 7834 Dec, [facility] [address] [id number] [place] [address]- 0514 Dec, [facility] [address] [id number] [place] [address]- 0088 Dec, [facility] [address] [id number] [place] [address]- 6114 Dec, [facility] [address] [facility] [id number] [place] [address]- 7984 Dec, [facility] [address] [id number] [place] [address]- 5876 Dec, [facility] [address] [id number] [place] [address]- 1150 Dec, [facility] [address] [id number] [place] [address]- 9032 Dec, [facility] [address] [id number] [place] [address]- 4004 Oct, [facility] [address] [id number] [place] [address]- 7425 Oct, [facility] [address] [id number] [place] [address]- 6042 14 Aug, 2011 [facility] [address] [id number] [place] [address]- 5892 Aug, [facility] [address] [id number] [place] [address]- 8036 July, [facility] [address] [id number] [place] [address]- 5876 Jun, [facility] [address] [id number] [place] [address]- 4195 Jun, [facility] [address] [id number] [place] [address]- 9956 May, [facility] [facility] [address] [id number] [place] [address]- 1750 Apr, [facility] [place] [facility] [address] [id number] [place] [address]- 4111 Apr, [facility] [place] [facility] [address] [id number] [place] [address]- 0864 Mar, [facility] [place] [facility] [address] [id number] [place] [address]- 4547 Mar, [facility] [facility] [address] [id number] [place] [address]- 5006 19 Feb, 2011 [facility] [place] [facility] [address] [id number], [place] [address]- 3859 15 Feb, 2011 [facility] [place] [facility] [address] [id number] [place] [address]- 2291 13 Feb, 2011 [facility] [place] [facility] [address] [id number] [place] [address]- 3452 13 Feb, 2011 [facility] [place] [facility] [address] [id number] [place] [address]- 7008 11 Jan, 2011 [facility] [place] [facility] [id number], [place] [address]- 2845 Dec, [facility] [id number], [place] [address]- 5848 Feb, [facility] [id number], [place] [address]- 7089 Feb, [facility] [id number], [place] [address]- 1192 Feb, [facility] [id number], [place] [address]- 1772 Feb, [facility] [id number] [place] [address] 28[address]- 6414 Dec, [facility] [id number] [place] [address] 09168- 8364 Dec, [facility] [id number] [place] [address] 59[address]- 7359 Oct, [facility] [id number], [place] [address]- 0315 Jun, [facility] [id number] [place] [address] 7[address]- 8095 Feb, [facility] [id number], [place] [address]- 4355 Feb, [facility] [id number], [place] [address]- 4847 Feb, [facility] [id number], [place] [address]- 9033 Dec, IMMUNIZATIONS No Known Immunizations SOCIAL HISTORY Never Assessed REASON FOR VISIT Thyroid US results PLAN OF CARE VITAL SIGNS MEDICATIONS Unknown Medications RESULTS Name Result Date Reference Range Ultrasound : Guide for Biopsy 2017-12-07 Mammogram, Bilateral Screening 2017-12-04 PROCEDURES No Known procedures INSTRUCTIONS MEDICATIONS ADMINISTERED No Known Medications MEDICAL (GENERAL) HISTORY Type Description Date Medical History obesity Medical History Hematologic disorder factor clotting problem Medical History DVT's Medical History Torn Rotator Cuff, repaired 09/23/17 Surgical History Lap Band 10/2012 Surgical History section 1985, 1987 Surgical History cholecystectomy Surgical History Lavonia Filter 06/2009 Surgical History Left leg exploratory surgery r/t clot 1987 Surgical History left shoulder surgery 09/14/17 Hospitalization History Ruptured Ovarian Cyst with abd bleeding 11/2009
--- OUTSIDE RECORDS SUMMARY | 2018-08-02 08:49 | XMS REPORT ---
Author Author KIANA ASHLEY [facility] Address [address] [place] [address] Care Team Providers Care Director Print Name Role Phone ELMO BRUNOY Unavailable PROBLEMS Type Condition ICD9-CM Code TGL90-EN Code Onset Dates Condition Status SNOMED Code Problem Presence of IVC filter Z95.828 Active 938886397 Problem Pelvic pain R10.2 Active 02399132 Problem 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 Active 551957552 Problem Obstructive sleep apnea G47.33 Active 59301741 Problem Morbid obesity E66.01 Active 468836608 Problem Excessive daytime sleepiness G47.19 Active 464468554973 Problem Peripheral edema R60.9 Active 388911088 Problem Thyroid nodule E04.1 Active 982090195 Problem Gastroesophageal reflux disease, esophagitis presence not specified K21.9 Active 150520979 Problem History of DVT (deep vein thrombosis) Z86.718 Active 188295169 Problem Hypertriglyceridemia E78.1 Active 857308130 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 Active 789913071 Problem Factor V Leiden D68.51 Active 826129350 Problem Generalized anxiety disorder F41.1 Active 033273347 ALLERGIES No Known Allergies ENCOUNTERS Encounter Location Date Diagnosis [facility] [address] [address] Nov, [facility] [id number] [place] [address] 05978- 1163 Nov, Obstructive sleep apnea G47.33 ; Morbid obesity E66.01 and Gastroesophageal reflux disease, esophagitis presence not specified K21.9 [facility] [address] [id number] Nov, Encounter for examination of eyes and vision without abnormal findings Z01.00 [facility] [id number] [place] [address] 89334- 8031 Oct, Thyroid nodule E04.1 and Screening for breast cancer Z12.31 [facility] [id number] [place] [address] 23691- 2279 Oct, History of DVT (deep vein thrombosis) Z86.718 ; Thyroid nodule E04.1 and Gastroesophageal reflux disease, esophagitis presence not specified K21.9 [facility] [id number] [place] [address] 95536- 2565 Oct, [facility] [id number] [place] [address] 83191- 3860 Sep, [facility] [id number] [place] [address] 47777- 7465 Aug, [facility] [id number] [place] [address] 10622- 5015 Aug, [place] [address] 7[address]29- 2684 Aug, Acute pain of left shoulder M25.512 and Thyroid nodule E04.1 [facility] [id number] [place] [address] 53433- 0461 July, Superior glenoid labrum lesion of left shoulder, subsequent encounter S43.432D [facility] [id number] [place] [address] 49978- 6247 Jun, History of DVT (deep vein thrombosis) Z86.718 [facility] [id number] [place] [address] 27296- 4322 Jun, History of DVT (deep vein thrombosis) Z86.718 [facility] [id number] [place] [address] 70638- 4870 Jun, Impingement syndrome, shoulder, left M75.42 [facility] [id number] [place] [address] 41398- 8705 May, Subacromial bursitis of left shoulder joint M75.52 [facility] [id number] [place] [address] 11561- 2537 May, [place] [address] 73658- 4211 May, Hypertriglyceridemia E78.1 ; 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 and Excessive daytime sleepiness G47.19 [facility] [address] 28333 2540 May, History of DVT (deep vein thrombosis) Z86.718 ; Generalized anxiety disorder F41.1 ; Hypertriglyceridemia E78.1 ; jail (current) use of anticoagulants Z79.01 ; Subacromial bursitis of left shoulder joint M75.52 and Excessive daytime sleepiness G47.19 [place] [address] 95509- 5731 May, [facility] [address] 31089 2540 May, 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 [facility] [id number] [place] [address] 05793- 6315 Apr, jail (current) use of anticoagulants Z79.01 [facility] [id number] [place] [address] 87314- 8931 Apr, 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 [facility] [id number] [place] [address] 99009 2549 Apr, 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 [facility] [id number] [place] [address] 63548- 8346 Apr, [facility] [facility] [address] 50635- 7736 Apr, 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 [facility] [id number] [place] [address] 35879- 4284 13 Apr, 2017 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 [facility] [address] [place] [address] 13677 2546 Apr, 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 [facility] [address] [place] [address] 15996 2546 Apr, jail (current) use of anticoagulants Z79.01 [facility] [id number] [place] [address] 11355 2546 Apr, 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 [facility] [id number] [place] [address] 43872 2546 Apr, jail (current) use of anticoagulants Z79.01 [facility] [id number] [place] [address] 24259 2546 Mar, 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 [facility] [id number] [place] [address] 84993 2546 Mar, [facility] [id number] [place] [address] 98406 2546 Mar, jail (current) use of anticoagulants Z79.01 [facility] [id number] [place] [address] [id number] Jan, Dental examination Z01.20 [facility] [id number] [place] [address] [id number] Jan, [facility] [id number] [place] [address] 02518 2546 Jan, jail (current) use of anticoagulants Z79.01 [facility] [id number] [place] [address] 03051 2546 17 Jan, 2017 History of DVT (deep vein thrombosis) Z86.718 [facility] [id number] [place] [address] 59222- 2141 Jan, Generalized anxiety disorder F41.1 and Peripheral edema R60.9 [facility] [id number] [place] [address] 99483- 8273 Nov, History of DVT (deep vein thrombosis) Z86.718 [facility] [id number] [place] [address] 22150- 3627 Nov, 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 [facility] [id number] [place] [address] 41203 -9879 Nov, Acute non-recurrent maxillary sinusitis J01.00 [place] [address] 39124- 2670 Oct, jail (current) use of anticoagulants Z79.01 [facility] [id number] [place] [address] 34603- 1236 Oct, Personal history of venous thrombosis and embolism Z86.718 [facility] [id number] [place] [address] 72604- 1906 Sep, [place] [address] 97144- 5799 Sep, Personal history of venous thrombosis and embolism Z86.718 [facility] [id number] [place] [address] 86847- 1100 Sep, 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 [facility] [id number] [place] [address] 84621- 8509 Sep, jail (current) use of anticoagulants Z79.01 [facility] [id number] [place] [address] 41855- 1960 Sep, Generalized anxiety disorder F41.1 and History of DVT (deep vein thrombosis) Z86.718 [facility] [id number] [place] [address] 87936- 7232 Aug, History of DVT (deep vein thrombosis) Z86.718 ; Generalized anxiety disorder F41.1 ; 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 ; Pelvic pain R10.2 ; Hypertriglyceridemia E78.1 ; Excessive daytime sleepiness G47.19 ; Colon cancer screening Z12.11 ; Screening for breast cancer Z12.39 ; Peripheral edema R60.9 and Gastroesophageal reflux disease, esophagitis presence not specified K21.9 [place] [address] 53444- 3441 Aug, [facility] [address] 81752- 2010 July, [address] 88599- 6196 July, History of DVT (deep vein thrombosis) Z86.718 [place] [address] 85694- 9071 Jun, Generalized anxiety disorder F41.1 [place] [address] 27443- 3260 Jun, History of DVT (deep vein thrombosis) Z86.718 [place] [address] 09947- 8231 Jun, History of DVT (deep vein thrombosis) Z86.718 [place] [address] 86770- 7269 Jun, History of DVT (deep vein thrombosis) Z86.718 [place] [address] 80563- 0736 Jun, History of DVT (deep vein thrombosis) Z86.718 [place] [facility] [address] 67513- 1112 May, History of DVT (deep vein thrombosis) Z86.718 [facility] [id number] [place] [address] 73076- 9349 May, 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 [id number] [place] [address] 42790 -1145 27 Apr, 2016 Bacterial conjunctivitis of left eye H10.9 and H/O motion sickness Z87.898 [facility] [address] 98623- 5276 24 Apr, 2016 History of DVT (deep vein thrombosis) Z86.718 [facility] [id number] [place] [address] 77601- 4190 Apr, History of DVT (deep vein thrombosis) Z86.718 [facility] [id number] [place] [address] 09200- 9167 15 Apr, 2016 History of DVT (deep vein thrombosis) Z86.718 [facility] [id number] [place] [address] 18934- 9093 14 Apr, 2016 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 [facility] [id number] [place] [address] 56909- 5356 Mar, [facility] [address] 89864- 2543 Mar, jail (current) use of anticoagulants Z79.01 [place] [address] 90069- 4616 Mar, Hypertriglyceridemia E78.1 and 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 [facility] [id number] [place] [address] 37666- 9486 Feb, 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 [place] [address] [place] [address] 38185- 8189 Feb, 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 [facility] [id number] [place] [address] 69815- 6126 Feb, jail (current) use of anticoagulants Z79.01 [facility] [id number] [place] [address] 32100- 4056 Dec, [facility] [id number] [place] [address] 77421- 2262 Nov, [facility] [address] 459381- 5186 Nov, History of DVT (deep vein thrombosis) Z86.718 ; Tremulousness R25.1 ; Generalized anxiety disorder F41.1 ; Peripheral edema R60.9 and Hypertriglyceridemia E78.1 [facility] [id number] [place] [address] 89034- 3531 Oct, History of DVT (deep vein thrombosis) Z86.718 [facility] [id number] [place] [address] 54976- 6837 Oct, [facility] [id number] [place] [address] 79763- 4224 Sep, History of DVT (deep vein thrombosis) Z86.718 [facility] [address] [place] [address] 72628- 1379 Sep, 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 [facility] [address] [place] [address] 51379- 6926 July, [facility] [id number] [place] [address] 55678- 5173 July, 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 [facility] [place] [address] [place] [address] 28188- 7766 July, jail (current) use of anticoagulants Z79.01 [facility] [address] [place] [address] 39607- 9748 Jun, 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 [place] [address] 10782 -8608 May, [facility] [place] [id number] [place] [address] 53439 -3576 May, Acute vaginitis N76.0 and Encounter for other screening for malignant neoplasm of breast Z12.39 [facility] [id number] [place] [address] 04837- 8030 Apr, [facility] [id number] [place] [address] 05838- 3133 Apr, [facility] [id number] [place] [address] 28980- 1922 Apr, Peripheral edema R60.9 [facility] [id number] [place] [address] 36235- 4594 Apr, jail (current) use of anticoagulants Z79.01 [place] [id number] [place] [address] 89546- 4109 Apr, Peripheral edema R60.9 and 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 [facility] [id number] [place] [address] 92146- 2138 Apr, 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 [facility] [id number] [place] [address] 65393- 4602 Apr, [place] [address] 31340- 1294 Apr, jail (current) use of anticoagulants Z79.01 [place] [id number] [place] [address] 53863- 6146 Apr, Peripheral edema R60.9 [place] [address] 22868- 2691 Mar, jail (current) use of anticoagulants Z79.01 [place] [address] 92978- 3893 Mar, 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 and Hypertriglyceridemia E78.1 [place] [address] 31774- 0865 Mar, 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 [facility] [id number] [place] [address] 56679- 3204 Mar, 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 [facility] [id number] [place] [address] 76278- 8612 Mar, [facility] [id number] [place] [address] 72118- 7305 Mar, jail (current) use of anticoagulants Z79.01 ; Hypertriglyceridemia E78.1 ; Personal history of venous thrombosis and embolism Z86.718 and Lump R22.9 [facility] [id number] [place] [address] 56304- 4760 Mar, Personal history of venous thrombosis and embolism Z86.718 [facility] [id number] [place] [address] 65647- 3866 Mar, Personal history of venous thrombosis and embolism Z86.718 [facility] [id number] [place] [address] [place] [address]- 1418 Mar, [facility] [address], [place] [address]- 3636 Dec, Personal history of venous thrombosis and embolism Z86.718 [facility] [address], [place] [address]- 2546 Dec, Personal history of venous thrombosis and embolism V12.51 [facility] [id number] [place] [address] 27632- 5593 Nov, Personal history of venous thrombosis and embolism V12.51 [facility] [address] [place] [address] 69130- 1326 Nov, Personal history of venous thrombosis and embolism V12.51 [facility] [address], [place] [address]- 0372 Nov, Personal history of venous thrombosis and embolism V12.51 [facility] [address], [place] [address]- 2689 Nov, Personal history of venous thrombosis and embolism V12.51 [facility] [address], [place] [address]- 6327 Nov, [facility] [address], [place] [address]- 5362 Oct, Dysuria 788.1 [facility] [address] [place] [address] 02708- 0702 Oct, Personal history of venous thrombosis and embolism V12.51 [facility] [address], [place] [address] 2546 Oct, [facility] [address] [address]- 2546 Oct, Personal history of venous thrombosis and embolism V12.51 [facility] [address] [address]- 9906 Sep, Personal history of venous thrombosis and embolism V12.51 [facility] [address] [facility] [id number] [address]- 8845 Sep, Personal history of venous thrombosis and embolism V12.51 [facility] [address] [facility] [id number] [address]- 2216 Aug, Personal history of venous thrombosis and embolism V12.51 [facility] [address] [address]- 0993 Aug, Personal history of venous thrombosis and embolism V12.51 [facility] [address] [facility] [id number]- 0454 Aug, Personal history of venous thrombosis and embolism V12.51 [facility] [address] [address]- 9876 July, Generalized anxiety disorder 300.02 ; Abdominal pain, left lower quadrant 789.04 and Personal history of venous thrombosis and embolism V12.51 [facility] [id number]- 7288 Jun, [facility] [address]- 6644 Jun, [facility] [id number] 00[place]- 1997 May, [facility] [id number] [address]- 3512 27 May, 2014 [facility] [id number] 94[place]- 0460 17 May, 2014 [facility] [id number] [address]- 8875 17 May, 2014 [facility] [address]- 4754 May, [facility] [id number] [address]- 2242 May, [facility] [place] [facility] [address] [id number] [place] [address]- 5042 May, [facility] [place] [facility] [address] [id number] [place] 9297 May, [facility] [place] [facility] [address] [id number] [place] [address]- 4270 Apr, [facility] [place] [facility] [address] [id number] [place] [address]- 6293 Apr, [facility] [place] [facility] [address] [id number] [place] [address]- 4687 Apr, [facility] [place] [facility] [address] [id number] [place] [address]- 8034 Apr, [facility] [place] [facility] [address] [id number] [place] [address]- 7572 Apr, [facility] [place] [facility] [address] [id number] [place] [address]- 4497 Mar, [facility] [place] [facility] [address] [id number] [place] [address]- 9081 Mar, [facility] [place] [facility] [address] [id number] [place] [address]- 6330 Mar, [facility] [place] [facility] [address] [id number] [place] [address]- 9258 Mar, [facility] [place] [facility] [address] [id number] [place] [address]- 7451 Mar, [facility] [place] [facility] [address] [id number] [place] [address]- 6645 Mar, [facility] [place] [facility] [address] [id number] [place] [address]- 8619 Feb, [facility] [place] [facility] [address] [id number] [place] [address]- 4634 Feb, [facility] [place] [facility] [address] [id number] [place] [address]- 4893 Feb, [facility] [place] [facility] [address] [id number] [place] [address]- 8446 Feb, [facility] [place] [facility] [address] [id number] [place] 5321 Feb, [facility] [place] [facility] [address] [id number] [place] [address]- 7185 Feb, [facility] [place] [facility] [address] [id number] [place] [address]- 4189 Feb, [facility] [place] [facility] [address] [id number] [place] [address]- 0976 Feb, [facility] [place] [facility] [address] [id number] [place] [address]- 6896 Feb, [facility] [place] [facility] [address] [id number] [place] [address]- 2621 Feb, [facility] [place] [facility] [address] [id number] [place] [address]- 9901 Jan, [facility] [place] [facility] [address] [id number] [place] [address]- 1727 Jan, [facility] [place] [facility] [address] [id number] [place] [address]- 3882 Jan, [facility] [place] [facility] [address] [id number] [address]- 5353 Jan, [facility] [place] [facility] [address] [id number], [place] [address] Jan, [facility] [place] [facility] [address] [id number] [place] [address] Jan, [facility] [place] [facility] [address] [id number] [place] [address] Jan, [facility] [place] [facility] [address] [id number] [place] [address] Jan, [facility] [place] [facility] [address] [id number] [place] [address] Jan, 2013 [facility] [place] [facility] [address] [id number] [place] [address] Jan, [facility] [place] [facility] [address] [id number] [place] [address] Dec, [facility] [place] [facility] [address] [id number] [place] Dec, [facility] [place] [facility] [address] [id number] [place] [address] Dec, [facility] [place] [facility] [address] [id number] [place] [address] Dec, [facility] [place] [facility] [address] [id number] [place] [address] Dec, [facility] [place] [facility] [address] [id number] [place] [address] Dec, [facility] [place] [facility] [address] [id number] [place] [address] Dec, [facility] [place] [facility] [address] [id number] [place] [address] Dec, [facility] [place] [facility] [address] [id number] [place] [address] Dec, [facility] [place] [facility] [address] [id number] [place] [address] Dec, [facility] [place] [facility] [address] [id number] [place] [address] Dec, [facility] [place] [facility] [address] [id number] [place] [address] Dec, [facility] [place] [facility] [address] [id number] [place] [address] Dec, [facility] [place] [facility] [address] [id number] [place] [id number] [id number] Dec, [facility] [place] [facility] [address] [id number] [place] [address] Dec, [facility] [place] [facility] [address] [id number] [place] [address] 30 Nov, 2013 [facility] [place] [facility] [address] [id number] [place] [address] 30 Nov, 2013 [facility] [place] [facility] [address] [address] [id number] [place] [address] Nov, 2013 [facility] [place] [facility] [address] [id number] [place] [address] 26 Nov, 2013 [facility] [place] [facility] [address] [id number] [place] [address] 2931 24 Nov, 2013 [facility] [place] [facility] [address] [id number] [place] [address] 2263 24 Nov, 2013 [facility] [place] [facility] [address] [id number] [place] [address] 9588 23 Nov, 2013 [facility] [place] [facility] [address] [id number] [place] [address] 2197 23 Nov, 2013 [facility] [place] [facility] [address] [id number] [place] [address] 1513 18 Nov, 2013 [facility] [place] [facility] [address] [id number] [place] [address] 2543 18 Nov, 2013 [facility] [place] [facility] [address] [id number] [address] 17 Nov, 2013 [facility] [place] [facility] [address] [id number] [place] [address] 254 17 Nov, 2013 [facility] [place] [facility] [address] [id number] [place] [address] 1655 11 Nov, 2013 [facility] [place] [facility] [address] [id number] [place] [address]- 3565 11 Nov, 2013 [facility] [place] [facility] [address] [id number] [place] [address] 8158 10 Nov, 2013 [facility] [place] [facility] [address] [id number] [place] [address]- 9897 10 Nov, 2013 [facility] [place] [facility] [address] [id number] [place] [address]- 8356 08 Nov, 2013 [facility] [place] [facility] [address] [id number] [place] [address]- 4519 08 Nov, 2013 [facility] [place] [facility] [address] [id number] [place] [address]- 3565 Sep, [facility] [place] [facility] [address] [id number] [place] [address] 2022 Sep, [facility] [place] [facility] [address] [id number] [place] [address]- 9222 Sep, [facility] [place] [facility] [address] [id number] [place] [address]- 3988 Sep, [facility] [place] [facility] [address] [id number] [place] [address] Sep, [facility] [place] [facility] [address] [id number] [place] [address]- 6144 Sep, [facility] [place] [facility] [address] [id number] [place] [address]- 4577 Aug, [facility] [place] [facility] [address] [id number] [place] [address]- 5300 Aug, [facility] [place] [facility] [address] [id number] [place] [address]- 5216 Aug, [facility] [place] [facility] [address] [id number] [place] [address]- 6798 Aug, [facility] [place] [facility] [address] [id number] [place] [address]- 2327 24 Aug, 2013 [facility] [place] [facility] [address] [id number] [place] [address]- 1227 Aug, [facility] [place] [facility] [address] [id number] [place] [address]- 5900 11 Aug, 2013 [facility] [place] [facility] [address] [id number] [place] [address]- 9515 Aug, [facility] [place] [facility] [address] [id number] [place] [address]- 8355 Aug, [facility] [place] [facility] [address] [id number] [place] [address]- 4826 Aug, [facility] [place] [facility] [address] [id number] [place] [address]- 4510 Aug, [facility] [place] [facility] [address] [id number] [place] [address]- 7023 July, [facility] [place] [facility] [address] [id number] [place] [address]- 5890 July, [facility] [place] [facility] [address] [id number] [place] [address]- 4765 Jun, [facility] [place] [facility] [address] [id number] [place] [address]- 0743 Jun, [facility] [place] [facility] [address] [id number] [place] [address]- 7551 Jun, [facility] [place] [facility] [address] [id number] [place] [address]- 8857 Jun, [facility] [place] [facility] [address] [id number] [place] [address]- 7095 18 Jun, 2013 [facility] [place] [facility] [address] [id number] [place] [address]- 4811 18 Jun, 2013 [facility] [place] [facility] [address] [id number] [place] [address]- 4276 15 Jun, 2013 [facility] [place] [facility] [address] [id number] [place] [address]- 0030 15 Jun, 2013 [facility] [place] [facility] [address] [id number] [place] [address]- 0474 Jun, [facility] [place] [facility] [address] [id number] [place] [address]- 1543 Jun, [facility] [place] [facility] [address] [id number] [place] [address]- 9419 Jun, [facility] [place] [facility] [address] [id number] [place] [address]- 4691 Jun, [facility] [place] [facility] [address] [id number] [place] [address]- 5430 May, [facility] [place] [facility] [address] [id number] [place] [address]- 2613 May, [facility] [place] [facility] [address] [id number] [place] [address]- 4334 May, [facility] [place] [facility] [address] [id number] [place] [address]- 3037 May, [facility] [place] [facility] [address] [id number] [place] [address]- 1467 May, [facility] [place] [facility] [address] [id number] [place] [address]- 2786 May, [facility] [place] [facility] [address] [id number] [place] [address]- 7245 May, [facility] [place] [facility] [address] [id number] [place] [address]- 4168 May, [facility] [place] [facility] [address] [id number], [place] [address] 9[address] May, [facility] [place] [facility] [address] [id number] [place] [address]- 7877 May, [facility] [place] [facility] [address] [id number] [place] [address]- 4976 May, [facility] [place] [facility] [address] [id number] [place] [address]- 3705 May, [facility] [place] [facility] [address] [facility] [id number] [place] [address]- 2377 Apr, [facility] [place] [facility] [address] [id number] [place] [address] 2546 Apr, [facility] [place] [facility] [address] [id number] [place] [address] 2546 Apr, [facility] [place] [facility] [address] [facility] [id number] [place] [address]- 0739 Apr, [facility] [place] [facility] [address] [id number] [place] [address]- 2543 Apr, [facility] [place] [facility] [address] [facility] [id number] [place] [address]- 3956 Apr, [facility] [place] [facility] [address] [facility] [id number] [place] [address]- 2379 Apr, [facility] [place] [facility] [address] [facility] [id number] [place] [address]- 5518 Apr, [facility] [place] [facility] [address] [facility] [id number] [place] [address]- 6674 Apr, [facility] [place] [facility] [address] [facility] [id number] [place] [address]- 6406 Apr, [facility] [place] [facility] [address] [facility] [id number] [place] [address]- 7750 Apr, [facility] [place] [facility] [address] [facility] [id number], [place] [address] 2542 Apr, [facility] [place] [facility] [address] [facility] [id number] [place] [address]- 2541 Apr, [facility] [place] [facility] [address] [facility] [id number] [place] [address]- 3386 Apr, [facility] [place] [facility] [address] [facility] [id number] [place] [address]- 2546 Apr, [facility] [place] [facility] [address] [facility] [id number], [place] [address]37 Apr, 2013 [facility] [address] [id number] [place] [address]- 3147 Apr, [facility] [place] [facility] [address] [id number] [place] [address]- 3666 Jan, [facility] [place] [facility] [address] [facility] [id number] [place] [address]- 5093 Jan, [facility] [place] [facility] [address] [id number] [place] [address]- 7012 08 Jan, 2013 [facility] [place] [facility] [address] [id number] [place] [address]- 3736 Jan, [facility] [place] [facility] [address] [id number] [place] [address]- 1793 Jan, [facility] [address] [facility] [id number] [place] [address]- 2874 Jan, [facility] [place] [facility] [address] [id number] [place] [address]- 8653 Jan, [facility] [place] [facility] [address] [id number] [place] [address]- 9878 Dec, [facility] [place] [facility] [address] [facility] [id number] [place] [address]- 3079 Dec, [facility] [place] [facility] [address] [id number] [place] [address]- 3913 08 Dec, 2012 [facility] [place] [facility] [address] [id number], [place] [address]- 8653 10 Nov, 2012 [facility] [place] [facility] [address] [id number] [place] [address]- 4548 10 Nov, 2012 [facility] [place] [facility] [address] [facility] [id number] [place] [address]- 4707 05 Nov, 2012 [facility] [place] [facility] [address] [facility] [id number], [place] [address]- 3058 04 Nov2012 [facility] [place] [facility] [address] [id number] [place] [address]- 5667 Oct, [facility] [place] [facility] [address] [id number] [place] [address]- 7164 Oct, [facility] [place] [facility] [address] [id number] [place] [address]- 8510 Oct, [facility] [place] [facility] [address] [id number] [place] [address]- 2158 Oct, [facility] [place] [facility] [address] [id number] [place] [address]- 8443 Oct, [facility] [place] [facility] [address] [id number] [place] [address]- 0183 Sep, [facility] [place] [facility] [address] [id number] [place] [address]- 8413 Sep, [facility] [place] [facility] [address] [id number] [place] [address]- 1043 Sep, [facility] [place] [facility] [address] [id number] [place] [address]- 3646 Sep, [facility] [place] [facility] [address] [id number] [place] [address]- 2304 Sep, [facility] [place] [facility] [address] [id number] [place] [address]- 8753 Sep, [facility] [place] [facility] [address] [id number] [place] [address]- 6522 Sep, [facility] [place] [facility] [address] [id number] [place] [address]- 6198 Aug, [facility] [place] [facility] [address] [id number] [place] [address]- 8688 Aug, [facility] [place] [facility] [address] [id number] [place] [address]- 8378 July, [facility] [place] [facility] [address] [id number] [place] [address]- 0956 Jun, [facility] [address] [id number] [place] [address]- 1768 Jun, [facility] [address] [id number] [place] [address]- 2488 Jun, [facility] [address] [id number] [place] [address]- 2872 Apr, [facility] [place] [facility] [address] [id number] [place] [address]- 0021 Apr, [facility] [address] [id number] [place] [address]- 9849 Apr, [facility] [address] [id number] [place] [address]- 8640 Mar, [facility] [address] [id number] [place] [address]- 5378 Mar, [facility] [address] [id number] [place] [address]- 3523 Mar, [facility] [address] [id number] [place] [address]- 2393 Mar, [facility] [address] [id number] [place] [address]- 4289 Mar, [facility] [address] [id number] [place] [address]- 8490 14 Feb, 2012 [facility] [place] [facility] [address] [id number] [place] [address]- 1339 14 Feb, 2012 [facility] [place] [facility] [address] [id number] [place] [address]- 2602 13 Jan, 2012 [facility] [place] [facility] [address] [id number] [place] [address]- 9521 13 Jan, 2012 [facility] [place] [facility] [address] [id number] [place] [address]- 2937 13 Jan, 2012 [facility] [place] [facility] [address] [id number] [place] [address]- 5702 13 Jan, 2011 [facility] [place] [facility] [address] [id number] [place] [address]- 5194 07 Jan, 2012 [facility] [place] [facility] [address] [id number] [place] [address]- 9466 07 Jan, 2012 [facility] [place] [facility] [address] [id number] [place] [address]- 3092 06 Jan, 2012 [facility] [place] [facility] [address] [id number] [place] [address]- 6924 Dec, [facility] [place] [facility] [address] [id number] [place] [address]451 Dec, [facility] [place] [facility] [address] [id number] [place] [address]- 5803 Dec, [facility] [place] [facility] [address] [id number] [place] [address]- 3345 Dec, [facility] [place] [facility] [address] [id number] [place] [address]- 5618 Dec, [facility] [place] [facility] [address] [id number] [place] [address]- 6805 Dec, [facility] [place] [facility] [address] [id number] [place] [address]- 4392 Dec, [facility] [place] [facility] [address] [id number] [place] [address]- 2074 Dec, [facility] [place] [facility] [address] [id number] [place] [address]- 9423 Dec, [facility] [place] [facility] [address] [id number] [place] [address]- 6563 Dec, [facility] [place] [facility] [address] [id number] [place] [address]- 2277 Oct, [facility] [place] [facility] [address] [id number] [place] [address]- 3285 Oct, [facility] [address] [id number] [place] [address]- 7502 14 Aug, 2011 [facility] [place] [facility] [address] [id number] [place] [address]- 9547 Aug, [facility] [place] [facility] [address] [id number] [place] [address]- 4367 July, [facility] [place] [facility] [address] [id number] [place] [address]- 4016 Jun, [facility] [place] [facility] [address] [id number] [place] [address]- 8136 Jun, [facility] [place] [facility] [address] [id number] [place] [address]- 7566 May, [facility] [place] [facility] [address] [id number] [place] [address]- 3983 Apr, [facility] [place] [facility] [address] [id number] [place] [address]- 6675 Apr, [facility] [place] [facility] [address] [id number] [place] [address]- 0625 Mar, [facility] [place] [facility] [address] [id number] [place] [address]- 1342 Mar, [facility] [place] [facility] [address] [id number] [place] [address]- 9066 19 Feb, 2011 [facility] [place] [facility] [address] [id number], [place] [address]- 2257 15 Feb, 2011 [facility] [place] [facility] [address] [id number] [place] [address]- 8166 13 Feb, 2011 [facility] [place] [facility] [address] [id number] [place] [address]- 7688 13 Feb, 2011 [facility] [place] [facility] [address] [id number] [place] [address]- 1257 11 Jan, 2011 [facility] [place] [facility] [address] [id number], [place] [address]- 2294 Dec, [facility] [address], [place] [address] 2768 Feb, [facility] [address] 0740 Feb, [facility] [address] 7660 Feb, [facility] [address] 2316 Feb, [facility] [id number] [place] [address]- 1584 Dec, [facility] [address], [place] [address]- 1024 Dec, [facility] [address], [place] [address]- 2496 Oct, [facility] [address], [place] [address]- 0645 Jun, [facility] [address] 8445 Feb, [facility] [address] [id number], [place] [address]- 1846 Feb, [facility] [address], [place] [address]- 0132 Feb, [facility] [address] [id number], [place] [address]- 8292 Dec, IMMUNIZATIONS No Known Immunizations SOCIAL HISTORY Never Assessed REASON FOR VISIT thyroid nodule-awoods PLAN OF CARE Activity Details Follow Up prn after US results Reason: VITAL SIGNS Height 64 in 2017-11-19 Weight 192.5 lbs 2017-11-19 Temperature 89.9 degrees Fahrenheit 2017-11-19 Heart Rate 75 bpm 2017-11-19 Respiratory Rate 20 2017-11-19 BMI 33.04 kg/m2 2017-11-19 Blood pressure systolic 122 mmHg 2017-11-19 Blood pressure diastolic 80 mmHg 2017-11-19 MEDICATIONS Medication Instructions Dosage Frequency Start Date End Date Duration Status Pantoprazole Sodium 20 mg Orally Once a day 1 tablet 24h Oct, 30 day(s) Active Tylenol 325 MG Orally every 6 hrs 1 tablet as needed 6h Active Vistaril 50 MG TAKE ONE CAPSULE BY MOUTH EVERY 6 HOURS NEEDED 30 Active Hydrochlorothiazide 50 MG TAKE ONE TABLET BY MOUTH ONCE DAILY 90 Active Lexapro 10 MG TAKE ONE TABLET BY MOUTH ONCE DAILY 90 Active Xarelto 20 mg Orally Once a day 1 tablet with food 24h Oct, 30 day(s) Active RESULTS Name Result Date Reference Range Ultrasound : Thyroid 2017-11-26 PROCEDURES No Known procedures INSTRUCTIONS MEDICATIONS ADMINISTERED No Known Medications MEDICAL (GENERAL) HISTORY Type Description Date Medical History obesity Medical History Hematologic disorder factor clotting problem Medical History DVT's Medical History Torn Rotator Cuff, repaired 09/23/17 Surgical History Lap Band 10/2012 Surgical History section 1985, 1987 Surgical History cholecystectomy Surgical History Ivel Filter 06/2009 Surgical History Left leg exploratory surgery r/t clot 1987 Surgical History left shoulder surgery 09/14/17 Hospitalization History Ruptured Ovarian Cyst with abd bleeding 11/2009
--- OUTSIDE RECORDS SUMMARY | 2018-08-02 08:50 | XMS REPORT ---
Author Author KIANA ASHLEY [facility] Address [address] [place] [address] Care Team Providers Care Log Loader Name Role Phone ASHLEY BRUNO Unavailable PROBLEMS Type Condition ICD9-CM Code QLR50-AJ Code Onset Dates Condition Status SNOMED Code Problem Presence of IVC filter Z95.828 Active 970596880 Problem Pelvic pain R10.2 Active 25906754 Problem 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 Active 040047255 Problem Obstructive sleep apnea G47.33 Active 35496141 Problem Morbid obesity E66.01 Active 156349298 Problem Excessive daytime sleepiness G47.19 Active 310858198188 Problem Peripheral edema R60.9 Active 259830202 Problem Thyroid nodule E04.1 Active 421408226 Problem Gastroesophageal reflux disease, esophagitis presence not specified K21.9 Active 434400046 Problem History of DVT (deep vein thrombosis) Z86.718 Active 063167853 Problem Hypertriglyceridemia E78.1 Active 063325641 Problem 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.01 Active 979129411 Problem Factor V Leiden D68.51 Active 657895618 Problem Generalized anxiety disorder F41.1 Active 641871752 ALLERGIES No Information ENCOUNTERS Encounter Location Date Diagnosis [facility] [id number] [place] [address] 78690- 7137 Nov, Obstructive sleep apnea G47.33 ; Morbid obesity E66.01 and Gastroesophageal reflux disease, esophagitis presence not specified K21.9 [facility] [id number] [place] [address] [id number] Nov, [facility] [id number] [place] [address] 57428- 5111 Oct, Thyroid nodule E04.1 and Screening for breast cancer Z12.31 [facility] [id number] [place] [address] 60955- 7909 Oct, History of DVT (deep vein thrombosis) Z86.718 ; Thyroid nodule E04.1 and Gastroesophageal reflux disease, esophagitis presence not specified K21.9 [facility] [id number] [place] [address] 92253- 9250 Oct, [facility] [id number] [place] [address] 21510- 1295 Sep, [facility] [id number] [place] [address] 98733- 0116 Aug, [facility] [id number] [place] [address] 78433- 8279 Aug, [facility] [id number] [place] [address] 20769- 9012 Aug, Acute pain of left shoulder M25.512 and Thyroid nodule E04.1 [facility] [facility] [address] 29171- 7621 July, Superior glenoid labrum lesion of left shoulder, subsequent encounter S43.432D [facility] [id number] [place] [address] 78673- 8532 Jun, History of DVT (deep vein thrombosis) Z86.718 [facility] [id number] [place] [address] 21818- 4503 Jun, History of DVT (deep vein thrombosis) Z86.718 [facility] [id number] [place] [address] 08182- 5590 Jun, Impingement syndrome, shoulder, left M75.42 [facility] [id number] [place] [address] 54457- 3615 May, Subacromial bursitis of left shoulder joint M75.52 [facility] [id number] [place] [address] 82954- 4741 May, [place] [address] [place] [address]- 1059 May, Hypertriglyceridemia E78.1 ; snf (current) use of anticoagulants Z79.01 and Excessive daytime sleepiness G47.19 [facility] [address] [place] [address] 82246 2546 May, History of DVT (deep vein thrombosis) Z86.718 ; Generalized anxiety disorder F41.1 ; Hypertriglyceridemia E78.1 ; 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.01 ; Subacromial bursitis of left shoulder joint M75.52 and Excessive daytime sleepiness G47.19 [facility] [id number] [place] [address] 58385- 5086 May, [facility] [facility] [id number] [place] [address] 06152 2546 May, snf (current) use of anticoagulants Z79.01 [facility] [facility] [id number] [place] [address] 89929 2546 Apr, snf (current) use of anticoagulants Z79.01 [place] [address] [place] [address] 64145 2546 Apr, snf (current) use of anticoagulants Z79.01 [facility] [facility] [id number] [place] [address] 53501 2546 Apr, snf (current) use of anticoagulants Z79.01 [place] [address] [place] [address] 78092 2546 Apr, [place] [address] [place] [address] 12983 2546 Apr, snf (current) use of anticoagulants Z79.01 [place] [address] [place] [address] 62726 2546 13 Apr, 2017 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.01 [place] [address] [place] [address] 88180021- 3534 Apr, 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.01 [facility] [id number] [place] [address] 15250- 9786 Apr, snf (current) use of anticoagulants Z79.01 [facility] [id number] [place] [address] 94171- 0626 Apr, 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.01 [facility] [id number] [place] [address] 17829 2546 Apr, 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.01 [place] [id number] [place] [address] 774562- 1599 Mar, snf (current) use of anticoagulants Z79.01 [facility] [facility] [id number] [place] [address] 69935- 5006 Mar, [facility] [address] 17171- 0551 Mar, snf (current) use of anticoagulants Z79.01 [facility] [address] [id number] Jan, Dental examination Z01.20 [facility] [address] [id number] Jan, [facility] [id number] [place] [address] 48363- 4249 Jan, snf (current) use of anticoagulants Z79.01 [place] [address] [place] [address] 79026- 8400 17 Jan, 2017 History of DVT (deep vein thrombosis) Z86.718 [facility] [facility] [id number] [place] [address] 95048- 7254 07 Jan, 2017 Generalized anxiety disorder F41.1 and Peripheral edema R60.9 [facility] [id number] [place] [address] 85287- 0573 Nov, History of DVT (deep vein thrombosis) Z86.718 [facility] [address] [place] [address] 54526- 7916 Nov, snf (current) use of anticoagulants Z79.01 [facility] [address] [place] [address] 43710 -6056 Nov, Acute non-recurrent maxillary sinusitis J01.00 [facility] [id number] [place] [address] 67872- 6957 Oct, 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.01 [place] [id number] [place] [address] 63136- 0434 Oct, Personal history of venous thrombosis and embolism Z86.718 [facility] [id number] [place] [address] 65476- 0055 Sep, [facility] [id number] [place] [address] 64781- 3813 Sep, Personal history of venous thrombosis and embolism Z86.718 [facility] [facility] [id number] [place] [address] 71505- 4557 Sep, snf (current) use of anticoagulants Z79.01 [facility] [facility] [id number] [place] [address] 60189- 4437 Sep, 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.01 [facility] [address] [place] [address] 69541- 6214 Sep, Generalized anxiety disorder F41.1 and History of DVT (deep vein thrombosis) Z86.718 [place] [facility] [id number] [place] [address] 62618- 4652 Aug, History of DVT (deep vein thrombosis) Z86.718 ; Generalized anxiety disorder F41.1 ; snf (current) use of anticoagulants Z79.01 ; Pelvic pain R10.2 ; Hypertriglyceridemia E78.1 ; Excessive daytime sleepiness G47.19 ; Colon cancer screening Z12.11 ; Screening for breast cancer Z12.39 ; Peripheral edema R60.9 and Gastroesophageal reflux disease, esophagitis presence not specified K21.9 [place] [facility] [address] 51174- 3704 Aug, [place] [address] 05982- 8943 July, [place] [address] 30467- 7637 July, History of DVT (deep vein thrombosis) Z86.718 [place] [address] 55773- 4843 Jun, Generalized anxiety disorder F41.1 [place] [facility] [address] 77421- 0478 Jun, History of DVT (deep vein thrombosis) Z86.718 [place] [address] 01716- 1623 Jun, History of DVT (deep vein thrombosis) Z86.718 [place] [address] 15404- 8178 Jun, History of DVT (deep vein thrombosis) Z86.718 [place] [address] 44926- 8875 Jun, History of DVT (deep vein thrombosis) Z86.718 [facility] [facility] [id number] [place] [address] 45370- 6327 May, History of DVT (deep vein thrombosis) Z86.718 [place] [address] 25647- 7351 May, 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.01 [place] [address] 86966- 0584 May, 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.01 [facility] [address] [place] [address] 48996- 0116 May, History of DVT (deep vein thrombosis) Z86.718 [facility] [id number] [place] [address] 68991 -7816 27 Apr, 2016 Bacterial conjunctivitis of left eye H10.9 and H/O motion sickness Z87.898 [facility] [id number] [place] [address] 92160- 6296 24 Apr, 2016 History of DVT (deep vein thrombosis) Z86.718 [place] [facility] [id number] [place] [address] 21760- 2706 Apr, History of DVT (deep vein thrombosis) Z86.718 [place] [facility] [id number] [place] [address] 16728- 1047 15 Apr, 2016 History of DVT (deep vein thrombosis) Z86.718 [facility] [id number] [place] [address] 15967- 8246 14 Apr, 2016 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.01 [place] [id number] [place] [address] 03280- 2366 Mar, [place] [facility] [id number] [place] [address] 71134- 2051 Mar, 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.01 [place] [id number] [place] [address] 92864- 0857 Mar, Hypertriglyceridemia E78.1 and 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.01 [place] [id number] [place] [address] 16114- 8596 Feb, snf (current) use of anticoagulants Z79.01 [place] [id number] [place] [address] 71160 2546 Feb, 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.01 [place] [address] [address]- 1056 Feb, 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.01 [place] [facility] [id number] [place] [address] 67583- 8956 Dec, [place] [facility] [id number] [place] [address] 92711 2546 Nov, [place] [facility] [id number] [place] [address] 44399 2546 Nov, History of DVT (deep vein thrombosis) Z86.718 ; Tremulousness R25.1 ; Generalized anxiety disorder F41.1 ; Peripheral edema R60.9 and Hypertriglyceridemia E78.1 [place] [address] [place] [address] 39739- 3116 Oct, History of DVT (deep vein thrombosis) Z86.718 [place] [facility] [id number] [place] [address] 67882 2546 Oct, [place] [facility] [id number] [place] [address] 55210 2544 Sep, History of DVT (deep vein thrombosis) Z86.718 [place] [address] [place] [address] 05197- 4830 Sep, snf (current) use of anticoagulants Z79.01 [place] [address] [address] 2546 July, [place] [address] [place] [address] 13774 2546 July, snf (current) use of anticoagulants Z79.01 [place] [address] [place] [address] 77480 2546 July, snf (current) use of anticoagulants Z79.01 [place] [address] [place] [address] 30396 2546 Jun, snf (current) use of anticoagulants Z79.01 [facility] [id number] [place] [address] 60674 -3478 Jun, Coccyx pain M53.3 ; Encounter for therapeutic drug level monitoring Z51.81 and snf current use 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.01 [facility] [id number] [place] [address] 26146- 4581 May, Abnormal mammogram R92.8 [facility] [address] 68376 -4121 May, [facility] [address] 27254 -6297 May, Acute vaginitis N76.0 and Encounter for other screening for malignant neoplasm of breast Z12.39 [place] [address] 56114- 2427 Apr, [place] [address] 42015- 1639 Apr, [place] [address] 97814- 3198 Apr, Peripheral edema R60.9 [place] [id number] [place] [address] 31667- 6192 Apr, snf (current) use of anticoagulants Z79.01 [place] [id number] [place] [address] 32948- 8578 Apr, Peripheral edema R60.9 and 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.01 [place] [id number] [place] [address] 26983- 9108 Apr, 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.01 [place] [id number] [place] [address] 34352- 1269 Apr, [place] [address] 89357- 7945 Apr, 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.01 [place] [id number] [place] [address] 68087- 3264 Apr, Peripheral edema R60.9 [place] [id number] [place] [address] 11901- 4230 Mar, snf (current) use of anticoagulants Z79.01 [place] [id number] [place] [address] 86713- 3960 Mar, snf (current) use of anticoagulants Z79.01 and Hypertriglyceridemia E78.1 [place] [address] 74145- 4387 Mar, 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.01 [place] [id number] [place] [address] 05073- 9238 Mar, 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.01 [place] [id number] [place] [address] 55206- 6128 Mar, [place] [address] 76186- 5467 Mar, 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.01 ; Hypertriglyceridemia E78.1 ; Personal history of venous thrombosis and embolism Z86.718 and Lump R22.9 [place] [id number] [place] [address] 83917- 5271 Mar, Personal history of venous thrombosis and embolism Z86.718 [place] [id number] [place] [address] 03149- 7431 Mar, Personal history of venous thrombosis and embolism Z86.718 [place] [id number] [place] [address] 03268- 9300 Mar, [place] [id number] [place] [address] 12261- 8524 Dec, Personal history of venous thrombosis and embolism Z86.718 [facility] [address] [address]- 9487 Dec, Personal history of venous thrombosis and embolism V12.51 [facility] [address] [facility] [id number] [address]- 8896 Nov, Personal history of venous thrombosis and embolism V12.51 [facility] [address] [facility] [id number] [address] 2546 Nov, Personal history of venous thrombosis and embolism V12.51 [facility] [address] [facility] [id number] [address] 2546 17 Nov, 2014 Personal history of venous thrombosis and embolism V12.51 [facility] [id number] [address]- 2543 Nov, Personal history of venous thrombosis and embolism V12.51 [facility] [id number] [address]- 7091 Nov, [facility] [address] [address]- 7020 Oct, Dysuria 788.1 [facility] [address] [address]- 3752 Oct, Personal history of venous thrombosis and embolism V12.51 [facility] [address] [address]- 1384 Oct, [facility] [id number] [address]- 2544 Oct, Personal history of venous thrombosis and embolism V12.51 [facility] [id number] 3053 Sep, Personal history of venous thrombosis and embolism V12.51 [facility] [id number] [address]- 2541 Sep, Personal history of venous thrombosis and embolism V12.51 [facility] [address] [facility] [id number], [place] [address]- 9628 19 Aug, 2014 Personal history of venous thrombosis and embolism V12.51 [facility] [address] [address]- 1788 18 Aug, 2014 Personal history of venous thrombosis and embolism V12.51 [facility] [address]- 1425 15 Aug, 2014 Personal history of venous thrombosis and embolism V12.51 [facility] [id number]- 0784 July, Generalized anxiety disorder 300.02 ; Abdominal pain, left lower quadrant 789.04 and Personal history of venous thrombosis and embolism V12.51 [facility] [address], [place] [address]- 4533 14 Jun, 2014 [facility] [address] [address]- 4400 Jun, [facility] [address] [address]- 6890 May, [facility] [address] [address]- 0083 27 May, 2014 [facility] [address] [address]- 7469 17 May, 2014 [facility] [address]- 0121 17 May, 2014 [facility] [address], [place] [address]- 5724 May, [facility] [address]- 7749 May, [facility] [address], [place] [address]- 2342 04 May, 2014 [facility] [address] [address]- 5854 May, [facility] [place] [facility] [address] [id number] [place] [address]- 7547 Apr, [facility] [place] [facility] [address] [id number] [place] [address]- 5546 Apr, [facility] [place] [facility] [address] [id number] [place] [address]- 8906 Apr, [facility] [place] [facility] [address] [id number] [place] [address]- 3452 Apr, [facility] [place] [facility] [address] [id number] [place] [address]- 6746 Apr, [facility] [place] [facility] [address] [id number] [place] [address]- 1986 Mar, [facility] [place] [facility] [address] [id number] [place] [address]- 7751 Mar, [facility] [place] [facility] [address] [id number] [place] [address]- 6786 Mar, [facility] [place] [facility] [address] [id number] [place] [address]- 7057 Mar, [facility] [place] [facility] [address] [facility] [id number] [place] [address]- 3915 Mar, [facility] [place] [facility] [address] [id number] [place] [address]- 5743 Mar, [facility] [place] [facility] [address] [id number] [place] [address]- 8716 Feb, [facility] [place] [facility] [address] [id number] [place] [address]- 0835 Feb, [facility] [place] [facility] [address] [id number] [place] 0106 Feb, [facility] [place] [facility] [address] [id number] [place] [address]- 3543 Feb, [facility] [place] [facility] [address] [id number] [place] [address]- 5948 Feb, [facility] [place] [facility] [address] [id number] [place] [address]- 9242 Feb, [facility] [place] [facility] [address] [id number] [place] 2539 Feb, [facility] [place] [facility] [address] [id number] [place] [address]- 2475 Feb, [facility] [place] [facility] [address] [id number] [place] [address]- 4300 Feb, [facility] [place] [facility] [address] [id number] [place] [address]- 5359 Feb, [facility] [place] [facility] [address] [id number] [place] [address]- 7974 Jan, [facility] [place] [facility] [address] [id number] [place] [address] Jan, [facility] [place] [facility] [address] [id number] [place] [address] Jan, [facility] [place] [facility] [address] [id number] [place] [address] Jan, [facility] [place] [facility] [address] [id number] [place] [address] Jan, [facility] [place] [facility] [address] [id number] [place] [address] Jan, [facility] [place] [facility] [address] [id number] [place] [address] Jan, [facility] [place] [facility] [address] [id number] [place] [address] Jan, [facility] [place] [facility] [address] [id number] [place] [address] Jan, [facility] [place] [facility] [address] [id number] [place] [address] Jan, [facility] [place] [facility] [address] [id number] [place] [address] Dec, [facility] [place] [facility] [address] [id number] [place] [address] Dec, [facility] [place] [facility] [address] [id number] [place] [address] Dec, [facility] [place] [facility] [address] [id number] [place] [address] Dec, [facility] [place] [facility] [address] [id number] [place] [address] Dec, [facility] [place] [facility] [address] [id number] [place] [address] Dec, [facility] [place] [facility] [address] [id number] [place] [address] Dec, [facility] [place] [facility] [address] [id number] [place] [address] Dec, [facility] [place] [facility] [address] [id number] [place] [address] Dec, [facility] [place] [facility] [address] [id number] [place] [address] Dec, [facility] [place] [facility] [address] [id number], [place] [address] Dec, [facility] [place] [facility] [address] [id number], [place] [address] Dec, [facility] [place] [facility] [address] [id number] [place] [address] Dec, [facility] [place] [facility] [address] [id number], [place] [address] Dec, [facility] [place] [facility] [address] [id number] [place] [address] Dec, [facility] [place] [facility] [address] [id number] [place] [address] 30 Sep, 2013 [facility] [place] [facility] [address] [id number] [place] [address] 30 Sep, 2013 [facility] [place] [facility] [address] [id number] [place] [address] 2546 26 Sep, 2013 [facility] [place] [facility] [address] [id number] [place] [address] 2546 26 Sep, 2013 [facility] [place] [facility] [address] [id number] [place] [address] 2542 24 Sep, 2013 [facility] [place] [facility] [address] [id number] [place] [address] 2540 24 Sep, 2013 [facility] [place] [facility] [address] [id number] [place] [address] 2543 23 Sep, 2013 [facility] [place] [facility] [address] [id number] [place] [address] 2541 23 Sep, 2013 [facility] [place] [facility] [address] [id number] [place] [address]- 2547 18 Sep, 2013 [facility] [place] [facility] [address] [id number] [place] [address] 2542 18 Sep, 2013 [facility] [place] [facility] [address] [id number] [place] [address] 2547 17 Sep, 2013 [facility] [place] [facility] [address] [id number] [place] [address] 2546 17 Sep, 2013 [facility] [place] [facility] [address] [id number] [place] [address] 2542 11 Sep, 2013 [facility] [place] [facility] [address] [id number] [place] [address] 2546 11 Sep, 2013 [facility] [place] [facility] [address] [id number] [place] [address] 2546 10 Sep, 2013 [facility] [place] [facility] [address] [id number] [place] [address] 2549 10 Nov, 2013 [facility] [place] [facility] [address] [id number] [place] [address]- 3000 08 Nov, 2013 [facility] [place] [facility] [address] [id number] [place] [address]- 0185 Nov, [facility] [place] [facility] [address] [id number] [place] [address]- 9235 Sep, [facility] [place] [facility] [address] [id number] [place] [address]- 3970 Sep, [facility] [place] [facility] [address] [id number] [place] [address]- 3072 Sep, [facility] [place] [facility] [address] [id number] [place] [address]- 9963 Sep, [facility] [place] [facility] [address] [id number] [place] [address]- 0148 Sep, [facility] [place] [facility] [address] [id number] [place] [address]- 0238 Sep, [facility] [place] [facility] [address] [id number] [place] [address]- 2293 Aug, [facility] [place] [facility] [address] [id number] [place] [address]- 0221 Aug, [facility] [place] [facility] [address] [id number] [place] [address]- 6886 Aug, [facility] [place] [facility] [address] [id number] [place] [address]- 9696 Aug, [facility] [place] [facility] [address] [id number] [place] [address]- 4925 24 Aug, 2013 [facility] [place] [facility] [address] [id number] [place] [address]- 0660 Aug, [facility] [place] [facility] [address] [id number] [place] [address]- 5755 Aug, [facility] [place] [facility] [address] [id number] [place] [address]- 3967 Aug, [facility] [place] [facility] [address] [id number] [place] [address]- 6349 Aug, [facility] [place] [facility] [address] [id number] [place] [address]- 3649 Aug, [facility] [place] [facility] [address] [id number] [place] [address]- 2717 Aug, [facility] [place] [facility] [address] [id number] [place] [address]- 1854 July, [facility] [place] [facility] [address] [id number] [place] [address]- 4628 July, [facility] [place] [facility] [address] [id number] [place] [address]- 6567 Jun, [facility] [place] [facility] [address] [id number] [place] [address]- 1614 Jun, [facility] [place] [facility] [address] [id number] [place] [address]- 6708 Jun, [facility] [place] [facility] [address] [id number] [place] [address]- 6458 Jun, [facility] [place] [facility] [address] [id number] [place] [address]- 6100 Jun, [facility] [place] [facility] [address] [id number] [place] [address]- 2741 Jun, [facility] [place] [facility] [address] [id number] [place] [address]- 9797 15 Jun, 2013 [facility] [place] [facility] [address] [id number] [place] [address]- 1516 Jun, [facility] [place] [facility] [address] [id number] [place] [address]- 2575 Jun, [facility] [place] [facility] [address] [id number] [place] [address]- 5926 Jun, [facility] [place] [facility] [address] [id number] [place] [address]- 6789 10 Jun, 2013 [facility] [place] [facility] [address] [id number] [place] [address]- 7006 Jun, [facility] [place] [facility] [address] [id number] [place] [address]- 2166 May, [facility] [place] [facility] [address] [id number] [place] [address]- 6586 May, [facility] [place] [facility] [address] [id number] [place] [address]- 9172 May, [facility] [place] [facility] [address] [id number] [place] [address]- 7445 May, [facility] [place] [facility] [address] [id number] [place] [address]- 2816 May, [facility] [place] [facility] [address] [id number] [place] [address]- 3026 May, [facility] [place] [facility] [address] [id number] [place] [address]- 6134 May, [facility] [place] [facility] [address] [id number] [place] [address]- 3367 May, [facility] [place] [facility] [address] [id number] [place] [address]- 2966 May, [facility] [place] [facility] [address] [id number] [place] [address]- 7829 May, [facility] [place] [facility] [address] [id number] [place] [address]- 3829 May, [facility] [place] [facility] [address] [id number] [place] [address]- 4585 May, [facility] [place] [facility] [address] [id number] [place] [address]- 2312 Apr, [facility] [place] [facility] [address] [id number] [place] [address] 1830 Apr, [facility] [place] [facility] [address] [id number] [place] [address]- 4355 Apr, [facility] [place] [facility] [address] [facility] [id number] [place] [address]- 1536 Apr, [facility] [place] [facility] [address] [facility] [id number] [place] [address]- 5646 Apr, [facility] [place] [facility] [address] [facility] [id number] [place] [address]- 5430 Apr, [facility] [place] [facility] [address] [id number] [place] [address]- 5493 Apr, [facility] [place] [facility] [address] [facility] [id number] [place] [address]- 8078 Apr, [facility] [place] [facility] [address] [facility] [id number] [place] [address]- 8937 Apr, [facility] [place] [facility] [address] [facility] [id number] [place] [address]- 8627 Apr, [facility] [place] [facility] [address] [facility] [id number] [place] [address]- 9045 Apr, [facility] [place] [facility] [address] [facility] [id number] [place] [address]- 7434 Apr, [facility] [place] [facility] [address] [facility] [id number] [place] [address]- 7426 Apr, [facility] [place] [facility] [address] [facility] [id number] [place] [address]- 2547 Apr, [facility] [place] [facility] [address] [facility] [id number] [place] [address]- 1166 Apr, [facility] [place] [facility] [address] [facility] [id number] [place] [address]- 5703 Apr, [facility] [place] [facility] [address] [facility] [id number] [place] [address]- 8426 13 Apr, 2013 [facility] [place] [facility] [address] [id number] [place] [address]- 9758 Jan, [facility] [place] [facility] [address] [id number] [place] [address]- 9818 Jan, [facility] [place] [facility] [address] [id number] [place] [address]- 8220 Jan, [facility] [place] [facility] [address] [id number] [place] [address]- 2686 Jan, [facility] [place] [facility] [address] [id number] [place] [address]- 1865 Jan, [facility] [place] [facility] [address] [id number] [place] [address]- 9364 Jan, [facility] [place] [facility] [address] [id number] [place] [address]- 1762 Jan, [facility] [place] [facility] [address] [id number], [place] [address]- 1872 Dec, [facility] [place] [facility] [address] [id number] [place] [address]- 2755 Dec, [facility] [place] [facility] [address] [id number], [place] [address]- 8284 Dec, [facility] [place] [facility] [address] [id number], [place] [address]- 1856 Nov, [facility] [place] [facility] [address] [id number], [place] [address] 10 Nov, 2012 [facility] [place] [facility] [address] [id number] [place] [address]- 4390 05 Nov, 2012 [facility] [place] [facility] [address] [id number], [place] [address]- 0771 04 Nov, 2012 [facility] [place] [facility] [address] [id number], [place] [address]- 0936 Oct, [facility] [place] [facility] [address] [id number], [place] [address]- 8675 Oct, [facility] [address] [id number] [place] [address]- 8227 Oct, [facility] [place] [facility] [address] [id number] [place] [address]- 4333 Oct, [facility] [place] [facility] [address] [id number] [place] [address]- 8004 Oct, [facility] [place] [facility] [address] [id number] [place] [address]- 0119 Sep, [facility] [place] [facility] [address] [id number] [place] [address]- 3540 Sep, [facility] [place] [facility] [address] [id number] [place] [address]- 2622 Sep, [facility] [place] [facility] [address] [id number] [place] [address]- 2771 Sep, [facility] [place] [facility] [address] [id number] [place] [address]- 4011 Sep, [facility] [place] [facility] [address] [id number] [place] [address]- 0199 Sep, [facility] [place] [facility] [address] [id number] [place] [address]- 3750 Sep, [facility] [place] [facility] [address] [id number] [place] [address]- 9283 Aug, [facility] [place] [facility] [address] [id number] [place] [address]- 1950 Aug, [facility] [place] [facility] [address] [id number] [place] [address]- 4573 July, [facility] [place] [facility] [address] [id number] [place] [address]- 5725 30 Jun, 2012 [facility] [place] [facility] [address] [id number] [place] [address]- 4611 Jun, [facility] [place] [facility] [address] [id number] [place] [address]- 0375 Jun, [facility] [address] [id number] [place] [address]- 3611 Apr, [facility] [place] [facility] [address] [id number] [place] [address]- 2436 Apr, [facility] [place] [facility] [address] [id number] [place] [address]- 3788 Apr, [facility] [place] [facility] [address] [id number] [place] [address]- 0044 Mar, [facility] [place] [facility] [address] [id number] [place] [address]- 2668 Mar, [facility] [address] [id number] [place] [address]- 0007 Mar, [facility] [address] [id number] [place] [address]- 4100 Mar, [facility] [address] [id number] [place] [address]- 6736 Mar, [facility] [address] [id number] [place] [address]- 5212 14 Feb, 2012 [facility] [address] [id number] [place] [address]- 3396 14 Feb, 2012 [facility] [address] [id number] [place] [address]- 1911 13 Jan, [address] [facility] [place] [facility] [address] [id number] [place] [address]- 0283 13 Jan, 2012 [facility] [place] [facility] [address] [id number] [place] [address]- 2794 13 Jan, [address] [facility] [place] [facility] [address] [id number] [place] [address]- 0994 13 Jan, 2012 [facility] [place] [facility] [address] [id number] [place] [address]- 0250 Jan, [facility] [place] [facility] [address] [id number] [place] [address]- 1169 Jan, [facility] [place] [facility] [address] [id number] [place] [address]- 6376 Jan, [facility] [place] [facility] [address] [facility] [id number] [place] [address]- 4031 Dec, [facility] [place] [facility] [address] [id number] [place] [address]- 4691 Dec, [facility] [place] [facility] [address] [id number] [place] 8031 Dec, [facility] [place] [facility] [address] [id number] [place] [address]335 Dec, [facility] [place] [facility] [address] [id number] [place] [address]- 8559 Dec, [facility] [place] [facility] [address] [id number] [place] [address]- 0954 Dec, [facility] [place] [facility] [address] [id number] [place] [address]- 4874 Dec, [facility] [place] [facility] [address] [id number] [place] [address]- 3599 Dec, [facility] [place] [facility] [address] [id number], [place] [address]- 5668 Dec, [facility] [place] [facility] [address] [id number], [place] [address]- 2862 Dec, [facility] [place] [facility] [address] [id number] [place] [address]- 2722 Oct, [facility] [place] [facility] [address] [facility] [id number] [place] [address]- 2724 Oct, [facility] [place] [facility] [address] [id number] [place] [address]- 1569 Aug, [facility] [place] [facility] [address] [id number] [place] [address]- 9558 14 Aug, 2011 [facility] [address] [id number] [place] [address]- 6101 July, [facility] [address] [id number] [place] [address] 2546 17 Jun, 2011 [facility] [address] [id number] [place] [address]- 4626 Jun, [facility] [address] [id number] [place] [address]- 4863 May, [facility] [address] [id number] [place] [address]- 8490 Apr, [facility] [address] [id number] [place] [address]- 1366 Apr, [facility] [address] [id number] [place] [address]- 2043 Mar, [facility] [address] [id number] [place] [address]- 9871 Mar, [facility] [address] [id number] [place] [address]- 7740 19 Feb, 2011 [facility] [address] [facility] [id number] [place] [address]- 7639 15 Feb, 2011 [facility] [address] [id number] [place] [address]- 3148 13 Feb, 2011 [facility] [address] [id number] [place] [address]- 0587 13 Feb, 2011 [facility] [address] [id number] [place] [address]- 3254 11 Jan, 2011 [facility] [address] [id number] [place] [address]- 2546 17 Dec, 2010 [facility] [address] [facility] [id number] [place] [address]- 4681 Feb, [facility] [address] [facility] [id number], [place] [address]- 5257 Feb, [facility] [address] [facility] [id number], [place] [address]- 9110 Feb, [facility] [address] [facility] [id number][place] 3740 Feb, [facility] [address] [facility] [id number], [place] [address]- 2714 Dec, [facility] [address] [facility] [id number], [place] [address]- 9934 Dec, [facility] [address] [facility] [id number], [place] [address]- 6561 Oct, [facility] [address] [facility] [id number], [place] [address]- 3942 Jun, [facility] [id number], [place] [address]- 1730 Feb, [facility] [address] [facility] [id number], [place] [address]- 6068 Feb, [facility] [address] [id number], [place] [address]- 3801 Feb, [facility] [address] [facility] [id number], [place] [address]- 5794 Dec, IMMUNIZATIONS No Known Immunizations SOCIAL HISTORY Never Assessed REASON FOR VISIT refill PLAN OF CARE VITAL SIGNS MEDICATIONS Unknown [...]
--- OUTSIDE RECORDS SUMMARY | 2018-08-02 08:51 | XMS REPORT ---
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 Name Role Phone KIANA ASHLEY Unavailable PROBLEMS Type Condition ICD9-CM Code YIA57-MF Code Onset Dates Condition Status SNOMED Code Problem Generalized anxiety disorder F41.1 Active 106142412 Problem 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 Active 135929346 Problem History of DVT (deep vein thrombosis) Z86.718 Active 790346580 Problem Factor V Leiden D68.51 Active 096329861 Problem Hypertriglyceridemia E78.1 Active 937472999 Problem correction (current) use of anticoagulants Z79.01 Active 049996729 Problem Thyroid nodule E04.1 Active 818280820 Problem Excessive daytime sleepiness G47.19 Active 903536543236 Problem Peripheral edema R60.9 Active 620920496 Problem Pelvic pain R10.2 Active 20729545 Problem Gastroesophageal reflux disease, esophagitis presence not specified K21.9 Active 978954727 Problem Presence of IVC filter Z95.828 Active 898267568 ALLERGIES No Information ENCOUNTERS Encounter Location Date Diagnosis [facility] [id number] [id number] Nov, [facility] [id number] [place] [address] 35232- 6754 Oct, Thyroid nodule E04.1 and Screening for breast cancer Z12.31 [facility] [id number] [place] [address] 86638- 9598 Oct, History of DVT (deep vein thrombosis) Z86.718 ; Thyroid nodule E04.1 and Gastroesophageal reflux disease, esophagitis presence not specified K21.9 [facility] [id number] [place] [address] 08212- 4327 Oct, [place] [id number] [place] [address] 89122- 0237 Sep, [place] [facility] [id number] [place] [address] 82669- 8578 Aug, [place] [facility] [id number] [place] [address] 71224- 1006 Aug, [place] [address] 80749- 9813 Aug, Acute pain of left shoulder M25.512 and Thyroid nodule E04.1 [place] [address] 50800- 3277 July, Superior glenoid labrum lesion of left shoulder, subsequent encounter S43.432D [place] [id number] [place] [address] 68201- 2806 Jun, History of DVT (deep vein thrombosis) Z86.718 [place] [id number] [place] [address] 34271- 2512 Jun, History of DVT (deep vein thrombosis) Z86.718 [place] [id number] [place] [address] 31605- 9475 Jun, Impingement syndrome, shoulder, left M75.42 [place] [id number] [place] [address] 27210- 9865 May, Subacromial bursitis of left shoulder joint M75.52 [place] [facility] [id number] [place] [address] 84731- 0326 May, [place] [id number] [place] [address] 69280- 7318 May, Hypertriglyceridemia E78.1 ; correction (current) use of anticoagulants Z79.01 and Excessive daytime sleepiness G47.19 [place] [facility] [id number] [place] [address] 46585- 7835 May, History of DVT (deep vein thrombosis) Z86.718 ; Generalized anxiety disorder F41.1 ; Hypertriglyceridemia E78.1 ; correction (current) use of anticoagulants Z79.01 ; Subacromial bursitis of left shoulder joint M75.52 and Excessive daytime sleepiness G47.19 [place] [id number] [place] [address] 00588 2546 May, [place] [address] 05496 2546 May, 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 [place] [id number] [place] [address] 49352 2546 23 Apr, 2017 correction (current) use of anticoagulants Z79.01 [place] [id number] [place] [address] 53834 2546 Apr, correction (current) use of anticoagulants Z79.01 [place] [id number] [place] [address] 56659 2546 Apr, correction (current) use of anticoagulants Z79.01 [place] [id number] [place] [address] 26254 2546 Apr, [place] [id number] [place] [address] 31721 2546 Apr, correction (current) use of anticoagulants Z79.01 [place] [id number] [place] [address] 40597 2546 13 Apr, 2017 correction (current) use of anticoagulants Z79.01 [place] [address] [place] [address] 74987 2546 Apr, correction (current) use of anticoagulants Z79.01 [place] [id number] [place] [address] 43519 2546 Apr, 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 [place] [id number] [place] [address] 81363- 5771 Apr, correction (current) use of anticoagulants Z79.01 [facility] [id number] [place] [address] 26827- 8868 Apr, 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 [facility] [id number] [place] [address] 62177- 6514 Mar, correction (current) use of anticoagulants Z79.01 [facility] [id number] [place] [address] 55349- 2559 Mar, [facility] [address] 48782- 9313 Mar, correction (current) use of anticoagulants Z79.01 [facility] [address] [id number] Jan, Dental examination Z01.20 [facility] [address] [id number] Jan, [facility] [address] 32803- 0821 Jan, 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 [facility] [id number] [place] [address] 49729- 7347 Jan, History of DVT (deep vein thrombosis) Z86.718 [id number] [place] [address] 59440- 8175 Jan, Generalized anxiety disorder F41.1 and Peripheral edema R60.9 [facility] [id number] [place] [address] 22245- 0026 Nov, History of DVT (deep vein thrombosis) Z86.718 [facility] [id number] [place] [address] 45819- 9162 Nov, correction (current) use of anticoagulants Z79.01 [facility] [id number] [place] [address] 23655 -6828 Nov, Acute non-recurrent maxillary sinusitis J01.00 [place] [id number] [place] [address] 75355- 5157 Oct, correction (current) use of anticoagulants Z79.01 [place] [id number] [place] [address] 97581- 1410 Oct, Personal history of venous thrombosis and embolism Z86.718 [address] [address] 42013- 0472 Sep, [place] [address] 17674- 6582 Sep, Personal history of venous thrombosis and embolism Z86.718 [place] [id number] [place] [address] 22596- 9375 Sep, 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 [place] [id number] [place] [address] 57056- 3527 Sep, correction (current) use of anticoagulants Z79.01 [place] [id number] [place] [address] 44532- 1150 Sep, Generalized anxiety disorder F41.1 and History of DVT (deep vein thrombosis) Z86.718 [place] [id number] [place] [address] 29463- 5044 Aug, History of DVT (deep vein thrombosis) Z86.718 ; Generalized anxiety disorder F41.1 ; correction (current) use of anticoagulants Z79.01 ; Pelvic pain R10.2 ; Hypertriglyceridemia E78.1 ; Excessive daytime sleepiness G47.19 ; Colon cancer screening Z12.11 ; Screening for breast cancer Z12.39 ; Peripheral edema R60.9 and Gastroesophageal reflux disease, esophagitis presence not specified K21.9 [place] [facility] [id number] [place] [address] 74516- 9549 Aug, [place] [address] [place] [address] 3391 July, [place] [id number] [place] [address] 31205- 6454 July, History of DVT (deep vein thrombosis) Z86.718 [place] [id number] [place] [address] 44760- 7345 Jun, Generalized anxiety disorder F41.1 [place] [address] 77266- 6327 Jun, History of DVT (deep vein thrombosis) Z86.718 [address] 11141- 3907 Jun, History of DVT (deep vein thrombosis) Z86.Maximo8 [place] [id number] [place] [address] 31073- 5830 Jun, History of DVT (deep vein thrombosis) Z86.Maximo8 [place] [id number] [place] [address] 09639- 4524 Jun, History of DVT (deep vein thrombosis) Z86.718 [place] [facility] [id number] [place] [address] 34412- 9105 May, History of DVT (deep vein thrombosis) Z86.718 [place] [id number] [place] [address] 73093- 8617 May, correction (current) use of anticoagulants Z79.01 [place] [id number] [place] [address] 49643- 4037 May, correction (current) use of anticoagulants Z79.01 [address] [address] 41590- 9513 May, History of DVT (deep vein thrombosis) Z86.718 [facility] [id number] [place] [address] 14759 -3612 Apr, Bacterial conjunctivitis of left eye H10.9 and H/O motion sickness Z87.898 [place] [id number] [place] [address] 09648- 4966 24 Apr, 2016 History of DVT (deep vein thrombosis) Z86.718 [address] [place] [id number] [place] [address] 71656- 6236 23 Apr, 2016 History of DVT (deep vein thrombosis) Z86.718 [place] [id number] [place] [address] 80242 2546 15 Apr, 2016 History of DVT (deep vein thrombosis) Z86.718 [place] [id number] [place] [address] 47415- 9671 14 Apr, 2016 correction (current) use of anticoagulants Z79.01 [place] [id number] [place] [address] 76517- 8216 Mar, [address] [address] 39803- 1062 Mar, 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 [place] [id number] [place] [address] 68752- 9498 Mar, Hypertriglyceridemia E78.1 and correction (current) use of anticoagulants Z79.01 [place] [id number] [place] [address] 37655 2546 Feb, 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 [place] [id number] [place] [address] 97196 2546 Feb, 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 [place] [id number] [place] [address] 69075 2546 Feb, 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 [place] [id number] [place] [address] 21118 2546 Dec, [id number] [place] [address] 92499- 5628 Nov, [facility] [address] 83397- 2216 Nov, History of DVT (deep vein thrombosis) Z86.718 ; Tremulousness R25.1 ; Generalized anxiety disorder F41.1 ; Peripheral edema R60.9 and Hypertriglyceridemia E78.1 [address] 43436- 1819 Oct, History of DVT (deep vein thrombosis) Z86.718 [address] 75646- 7423 Oct, [address] [address] 70137- 2204 Sep, History of DVT (deep vein thrombosis) Z86.718 [address] [place] 87435- 8497 Sep, correction (current) use of anticoagulants Z79.01 [address] 44059- 9963 July, [place] [address] 50662- 9675 July, correction (current) use of anticoagulants Z79.01 [address] 42068- 7978 July, 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 [place] [id number] [place] [address] 47239- 5923 Jun, correction (current) use of anticoagulants Z79.01 [facility] [id number] [place] [address] 92926 -0454 Jun, Coccyx pain M53.3 ; Encounter for therapeutic drug level monitoring Z51.81 and correction current use 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.01 [place] [address] [place] [address]- 3901 May, Abnormal mammogram R92.8 [facility] [address] 01408 -1295 May, [facility] [id number] [place] [address] 98938 -8094 May, Acute vaginitis N76.0 and Encounter for other screening for malignant neoplasm of breast Z12.39 [facility] [id number] [place] [address] 35575- 1669 Apr, [place] [address] 90340- 4136 Apr, [place] [address] 06870- 7046 Apr, Peripheral edema R60.9 [place] [address] 75223- 5700 Apr, correction (current) use of anticoagulants Z79.01 [place] [id number] [place] [address] 75283- 7302 Apr, Peripheral edema R60.9 and correction (current) use of anticoagulants Z79.01 [place] [id number] [place] [address] 04365- 9658 Apr, correction (current) use of anticoagulants Z79.01 [address] [id number] [place] [address] 58693 2546 Apr, [place] [id number] [place] [address] 02999- 2543 Apr, 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 [place] [id number] [place] [address] 36927- 2546 Apr, Peripheral edema R60.9 [place] [address] 01711- 8578 Mar, correction (current) use of anticoagulants Z79.01 [place] [address] [place] [address] 12939- 9071 Mar, correction (current) use of anticoagulants Z79.01 and Hypertriglyceridemia E78.1 [place] [id number] [place] [address] 17207- 9367 Mar, 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 [place] [id number] [place] [address] 33840- 3998 Mar, 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 [place] [id number] [place] [address] 78615- 5611 Mar, [place] [id number] [place] [address] 00659- 1853 Mar, correction (current) use of anticoagulants Z79.01 ; Hypertriglyceridemia E78.1 ; Personal history of venous thrombosis and embolism Z86.718 and Lump R22.9 [place] [id number] [place] [address] 38425- 6310 Mar, Personal history of venous thrombosis and embolism Z86.718 [place] [id number] [place] [address] 15608- 4293 Mar, Personal history of venous thrombosis and embolism Z86.718 [place] [id number] [place] [address] 08637- 6743 Mar, [place] [address] [place] [address] 80799- 9393 Dec, Personal history of venous thrombosis and embolism Z86.718 [place] [id number] [place] [address] 15709- 3221 Dec, Personal history of venous thrombosis and embolism V12.51 [place] [id number] [place] [address] 87660- 8152 Nov, Personal history of venous thrombosis and embolism V12.51 [facility] [address] [facility] [id number] [address]- 1647 Nov, Personal history of venous thrombosis and embolism V12.51 [facility] [address] [facility] [id number]12[place] 4410 Nov, Personal history of venous thrombosis and embolism V12.51 [facility] [address] [facility] [id number], [place] [address]- 6423 Nov, Personal history of venous thrombosis and embolism V12.51 [facility] [id number] [address]- 3503 Nov, [facility] [id number] [address]- 7914 Oct, Dysuria 788.1 [facility] [address] [place] [address] 08731- 1147 Oct, Personal history of venous thrombosis and embolism V12.51 [facility] [address] [address]- 3083 Oct, [facility] [address] [address]- 2407 Oct, Personal history of venous thrombosis and embolism V12.51 [facility] [id number] [address]- 8719 Sep, Personal history of venous thrombosis and embolism V12.51 [facility] [id number] [address]- 8026 Sep, Personal history of venous thrombosis and embolism V12.51 [facility] [id number] [address]- 0876 Aug, Personal history of venous thrombosis and embolism V12.51 [facility] [id number] [address]- 2267 Aug, Personal history of venous thrombosis and embolism V12.51 [facility] [address] [facility] [id number], [place] [address]- [address] 15 Aug, 2014 Personal history of venous thrombosis and embolism V12.51 [facility] [address] [address]- 8776 July, Generalized anxiety disorder 300.02 ; Abdominal pain, left lower quadrant 789.04 and Personal history of venous thrombosis and embolism V12.51 [facility] [address] [facility] [id number], [place] [address]- 7631 14 Jun, 2014 [facility] [address] [address]- 2649 Jun, [facility] [address], [place] [address]- 8392 May, [facility] [address] [address]- 7825 May, [facility] [address] [address]- 4822 May, [facility] [address] [address]- 1053 May, [facility] [address] [address]- 3190 May, [facility] [id number] [address]- 7286 May, [facility] [id number] [address]- 9702 May, [facility] [id number] 3906 May, [facility] [address] 5183 Apr, [facility] [id number] 7896 Apr, [facility] [address] [id number] [place] [address]- 3805 Apr, [facility] [place] [facility] [address] [id number] [place] [address]- 5099 Apr, [facility] [place] [facility] [address] [id number] [place] [address]- 1946 Apr, [facility] [place] [facility] [address] [id number] [place] [address]- 4623 Mar, [facility] [place] [facility] [address] [id number] [place] [address]- 8242 Mar, [facility] [place] [facility] [address] [id number] [place] [address]- 0420 Mar, [facility] [place] [facility] [address] [id number] [place] [address]- 1556 Mar, [facility] [place] [facility] [address] [id number] [place] [address]- 6870 Mar, [facility] [place] [facility] [address] [id number] [place] [address]- 1352 Mar, [facility] [place] [facility] [address] [id number] [place] [address]- 8021 Feb, [facility] [place] [facility] [address] [id number] [place] [address]- 6354 Feb, [facility] [place] [facility] [address] [id number] [place] [address]- 1467 Feb, [facility] [place] [facility] [address] [id number] [place] [address]- 5865 Feb, [facility] [place] [facility] [address] [id number] [place] [address]- 6496 Feb, [facility] [place] [facility] [address] [id number] [place] [address]- 6844 Feb, [facility] [place] [facility] [address] [id number] [place] [address]- 7747 Feb, [facility] [place] [facility] [address] [id number] [place] 9630 Feb, [facility] [place] [facility] [address] [id number] [place] [address]- 4155 Feb, [facility] [place] [facility] [address] [id number] [place] 4655 Feb, [facility] [place] [facility] [address] [id number] [place] [address]- 0456 Jan, [facility] [place] [facility] [address] [id number] [place] [address]- 7023 Jan, [facility] [place] [facility] [address] [id number] [place] [address]- 8238 Jan, [facility] [place] [facility] [address] [id number] [place] [address]- 6914 Jan, [facility] [place] [facility] [address] [id number] [place] [address] Jan, [facility] [place] [facility] [address] [id number] [place] [address] Jan, [facility] [place] [facility] [address] [id number] [place] [address] Jan, [facility] [place] [facility] [address] [id number], [place] [address] Jan, [facility] [place] [facility] [address] [id number], [place] [address] Jan, [facility] [place] [facility] [address] [id number] [place] [address] Jan, [facility] [place] [facility] [address] [id number], [place] [address] Dec, [facility] [place] [facility] [address] [id number] [place] [address] Dec, [facility] [place] [facility] [address] [id number] [place] [address] Dec, [facility] [place] [facility] [address] [id number] [place] [address] Dec, [facility] [place] [facility] [address] [id number] [place] [address] Dec, [facility] [place] [facility] [address] [id number] [place] [address] Dec, [facility] [place] [facility] [address] [id number] [place] [address] Dec, [facility] [place] [facility] [address] [id number] [place] [address] Dec, [facility] [place] [facility] [address] [id number] [place] [address] Dec, [facility] [place] [facility] [address] [id number] [place] [address] Dec, [facility] [place] [facility] [address] [id number] [place] [address] Dec, [facility] [place] [facility] [address] [id number] [place] [address] Dec, [facility] [place] [facility] [address] [id number] [place] [address] Dec, [facility] [place] [facility] [address] [id number] [place] [address] Dec, [facility] [place] [facility] [address] [id number] [place] [address] Dec, [facility] [place] [facility] [address] [id number] [place] [address] Nov, [facility] [place] [facility] [address] [id number] [place] [address] 30 Nov, 2013 [facility] [place] [facility] [address] [id number] [place] [address] Nov, 2013 [facility] [place] [facility] [address] [id number] [place] [address] 26 Sep, 2013 [facility] [place] [facility] [address] [address] [id number] [place] [address] 24 Sep, 2013 [facility] [place] [facility] [address] [id number] [place] [address] 24 Sep, 2013 [facility] [place] [facility] [address] [id number] [place] [address] 2544 23 Sep, 2013 [facility] [place] [facility] [address] [id number] [place] [address]93 23 Sep, 2013 [facility] [place] [facility] [address] [id number] [place] [address] 1791 18 Sep, 2013 [facility] [place] [facility] [address] [id number] [place] [address] 1845 18 Nov, 2013 [facility] [place] [facility] [address] [id number] [place] [address]- 7874 17 Sep, 2013 [facility] [place] [facility] [address] [id number] [place] [address] 7604 17 Sep, 2013 [facility] [place] [facility] [address] [id number] [place] [address]- 3068 11 Nov, 2013 [facility] [place] [facility] [address] [id number] [place] [address] 2617 11 Nov, 2013 [facility] [place] [facility] [address] [id number] [place] [address] 3077 10 Sep, 2013 [facility] [place] [facility] [address] [id number] [place] [address] 2546 10 Nov, 2013 [facility] [place] [facility] [address] [id number] [place] [address]- 2542 08 Sep, 2013 [facility] [place] [facility] [address] [id number] [place] [address]- 4059 08 Sep, 2013 [facility] [place] [facility] [address] [id number] [place] [address]- 3311 Sep, [facility] [place] [facility] [address] [id number] [place] [address]- 0570 Sep, [facility] [place] [facility] [address] [id number] [place] [address]- 9432 Sep, [facility] [place] [facility] [address] [id number] [place] [address]- 8151 Sep, [facility] [place] [facility] [address] [id number] [place] [address]- 6928 Sep, [facility] [place] [facility] [address] [id number] [place] [address]- 0862 Sep, [facility] [place] [facility] [address] [id number] [place] [address]- 9772 Aug, [facility] [place] [facility] [address] [id number] [place] [address]- 9085 Aug, [facility] [place] [facility] [address] [id number] [place] [address]- 5811 Aug, [facility] [place] [facility] [address] [id number] [place] [address]- 8934 Aug, [facility] [place] [facility] [address] [id number] [place] [address]- 7637 Aug, [facility] [place] [facility] [address] [id number] [place] [address]- 3610 Aug, [facility] [place] [facility] [address] [id number] [place] [address]- 8427 Aug, [facility] [place] [facility] [address] [id number] [place] [address]- 9561 Aug, [facility] [place] [facility] [address] [id number] [place] [address]- 3496 Aug, [facility] [place] [facility] [address] [id number] [place] [address]- 0844 Aug, [facility] [place] [facility] [address] [id number] [place] [address]- 5485 Aug, [facility] [place] [facility] [address] [id number] [place] [address]- 7357 July, [facility] [place] [facility] [address] [id number] [place] [address]- 9293 July, [facility] [place] [facility] [address] [id number] [place] [address]- 3421 Jun, [facility] [place] [facility] [address] [id number] [place] [address]- 5896 Jun, [facility] [place] [facility] [address] [id number] [place] [address]- 6795 Jun, [facility] [place] [facility] [address] [id number] [place] [address]- 9393 Jun, [facility] [place] [facility] [address] [id number] [place] [address]- 1628 Jun, [facility] [place] [facility] [address] [id number] [place] [address]- 1788 Jun, [facility] [place] [facility] [address] [id number] [place] [address]- 0224 Jun, [facility] [place] [facility] [address] [id number] [place] [address]- 9160 Jun, [facility] [place] [facility] [address] [id number] [place] [address] 1916 Jun, [facility] [place] [facility] [address] [id number] [place] [address]- 6483 Jun, [facility] [place] [facility] [address] [id number] [place] [address]- 9279 Jun, [facility] [place] [facility] [address] [id number] [place] [address]- 5979 Jun, [facility] [place] [facility] [address] [id number] [place] [address]- 7791 May, [facility] [place] [facility] [address] [id number] [place] [address]- 3782 May, [facility] [place] [facility] [address] [id number] [place] [address]- 0721 May, [facility] [place] [facility] [address] [id number] [place] [address]- 8663 May, [facility] [place] [facility] [address] [id number] [place] [address]- 7722 May, [facility] [place] [facility] [address] [id number] [place] [address]- 0280 May, [facility] [place] [facility] [address] [id number] [place] [address]- 1521 May, [facility] [place] [facility] [address] [id number] [place] [address]- 7630 May, [facility] [place] [facility] [address] [id number] [place] [address]- 3451 May, [facility] [place] [facility] [address] [id number] [place] [address]- 0149 May, [facility] [place] [facility] [address] [id number] [place] [address]- 6402 May, [facility] [place] [facility] [address] [id number] [place] [address]- 0313 May, [facility] [place] [facility] [address] [id number], [place] [address] 9394 Apr, [facility] [place] [facility] [address] [id number] [place] [address]- 8794 Apr, [facility] [place] [facility] [address] [id number] [place] [address]- 9511 Apr, [facility] [place] [facility] [address] [id number] [place] [address]- 9305 Apr, [facility] [place] [facility] [address] [id number] [place] [address]- 4870 Apr, [facility] [place] [facility] [address] [id number] [place] [address]- 3906 Apr, [facility] [place] [facility] [address] [id number] [place] [address]- 2126 Apr, [facility] [place] [facility] [address] [id number] [place] [address]- 0875 Apr, [facility] [place] [facility] [address] [id number] [place] [address]- 2670 Apr, [facility] [place] [facility] [address] [id number] [place] [address]- 0381 Apr, [facility] [place] [facility] [address] [facility] [id number] [place] [address]- 8754 Apr, [facility] [place] [facility] [address] [id number] [place] [address]- 5305 Apr, [facility] [place] [facility] [address] [id number] [place] [address]- 9293 Apr, [facility] [place] [facility] [address] [facility] [id number] [place] [address]- 2977 Apr, [facility] [place] [facility] [address] [facility] [id number], [place] [address] Apr, [facility] [place] [facility] [address] [id number], [place] [address]- 5504 Apr, [facility] [place] [facility] [address] [id number] [place] [address]- 1593 Apr, [facility] [place] [facility] [address] [id number], [place] [address] 4604 Jan, [facility] [place] [facility] [address] [facility] [id number], [place] [address]- 7559 Jan, [facility] [place] [facility] [address] [facility] [id number], [place] [address]- 2988 08 Jan, 2013 [facility] [place] [facility] [address] [id number] [place] [address]- 8906 Jan, [facility] [place] [facility] [address] [id number] [place] [address]- 6682 Jan, [facility] [place] [facility] [address] [id number] [place] [address]- 0943 Jan, [facility] [place] [facility] [address] [id number] [place] [address]- 9752 Jan, [facility] [place] [facility] [address] [id number] [place] [address]- 0328 Dec, [facility] [place] [facility] [address] [id number] [place] [address]- 1765 Dec, [facility] [place] [facility] [address] [id number] [place] [address]- 1470 Dec, [facility] [place] [facility] [address] [id number] [place] [address]- 8354 Nov, [facility] [place] [facility] [address] [id number] [place] [address]- 1414 Nov, [facility] [place] [facility] [address] [facility] [id number] [place] [address]- 6325 05 Nov, 2012 [facility] [place] [facility] [address] [id number] [place] [address]- 9290 Nov, [facility] [place] [facility] [address] [id number] [place] [address]- 3819 Oct, [facility] [place] [facility] [address] [id number] [place] [address]- 5431 Oct, [facility] [place] [facility] [address] [id number] [place] [address]- 0069 Oct, [facility] [place] [facility] [address] [facility] [id number] [place] [address]- 2847 Oct, [facility] [place] [facility] [address] [id number] [place] [address]- 4995 Oct, [facility] [address] [id number] [place] [address]- 3575 Sep, [facility] [place] [facility] [address] [id number] [place] [address]- 9056 Sep, [facility] [place] [facility] [address] [id number] [place] [address]- 5247 Sep, [facility] [place] [facility] [address] [id number] [place] [address]- 3531 Sep, [facility] [place] [facility] [address] [id number] [place] [address]- 3018 Sep, [facility] [place] [facility] [address] [id number] [place] [address]- 6115 Sep, [facility] [place] [facility] [address] [id number] [place] [address]- 6553 Sep, [facility] [place] [facility] [address] [id number] [place] [address]- 6067 Aug, [facility] [place] [facility] [address] [id number] [place] [address]- 9102 Aug, [facility] [place] [facility] [address] [id number] [place] [address]- 9757 July, [facility] [place] [facility] [address] [id number] [place] [address]- 2035 Jun, [facility] [place] [facility] [address] [id number] [place] [address]- 8971 Jun, [facility] [place] [facility] [address] [id number] [place] [address]- 7784 Jun, [facility] [place] [facility] [address] [id number] [place] [address]- 8546 Apr, [facility] [place] [facility] [address] [id number] [place] [address]- 2929 Apr, [facility] [place] [facility] [address] [id number] [place] [address]- 9838 Apr, [facility] [place] [facility] [address] [id number] [place] [address]- 8428 Mar, [facility] [place] [facility] [address] [facility] [id number] [place] [address]- 9008 Mar, [facility] [place] [facility] [address] [id number] [place] [address]- 0604 Mar, [facility] [place] [facility] [address] [id number] [place] [address]- 8832 Mar, [facility] [place] [facility] [address] [id number] [place] [address]- 6911 Mar, [facility] [place] [facility] [address] [id number] [place] [address]- 5093 14 Feb, 2012 [facility] [place] [facility] [address] [id number] [place] [address]- 4411 14 Feb, 2012 [facility] [place] [facility] [address] [id number] [place] [address]- 5586 Jan, [facility] [place] [facility] [address] [id number] [place] [address]- 7663 Jan, [facility] [place] [facility] [address] [id number], [place] [address]- 9838 13 Jan, 2012 [facility] [place] [facility] [address] [id number], [place] [address]- 3418 13 Jan, 2012 [facility] [place] [facility] [address] [id number] [place] [address]- 1280 07 Jan, 2012 [facility] [place] [facility] [address] [facility] [id number], [place] [address]- 2018 07 Jan, 2012 [facility] [place] [facility] [address] [facility] [id number], [place] [address]- 7542 06 Jan, 2012 [facility] [place] [facility] [address] [id number] [place] [address]- 8000 Dec, [facility] [place] [facility] [address] [id number] [place] [address]- 6795 Dec, [facility] [place] [facility] [address] [id number] [place] [address]- 4599 Dec, [facility] [place] [facility] [address] [id number] [place] [address]- 8964 Dec, [facility] [place] [facility] [address] [id number] [place] [address]- 4195 Dec, [facility] [place] [facility] [address] [id number] [place] [address]- 5101 Dec, [facility] [place] [facility] [address] [id number] [place] [address]- 3259 Dec, [facility] [place] [facility] [address] [id number] [place] [address]- 2742 Dec, [facility] [place] [facility] [address] [id number] [place] [address]- 9573 Dec, [facility] [place] [facility] [address] [id number] [place] [address]- 2472 Dec, [facility] [place] [facility] [address] [id number] [place] [address]- 5222 Oct, [facility] [place] [facility] [address] [id number] [place] [address]- 0231 Oct, [facility] [place] [facility] [address] [id number] [place] [address]- 3292 Aug, [facility] [place] [facility] [address] [id number] [place] [address]- 8410 Aug, [facility] [place] [facility] [address] [id number] [place] [address]- 5212 July, [facility] [place] [facility] [address] [id number] [place] [address]- 6007 Jun, [facility] [place] [facility] [address] [id number] [place] [address]- 9362 Jun, [facility] [place] [facility] [address] [id number] [place] [address]- 8837 May, [facility] [place] [facility] [address] [id number] [place] [address]- 7432 Apr, [facility] [place] [facility] [address] [id number] [place] [address]- 8806 Apr, [facility] [place] [facility] [address] [id number] [place] [address]- 2915 Mar, [facility] [place] [facility] [address] [id number] [place] [address]- 3319 Mar, [facility] [place] [facility] [address] [id number] [place] [address]- 2200 Feb, [facility] [place] [facility] [address] [id number], [place] [address]- 0366 15 Feb, 2011 [facility] [place] [facility] [address] [id number] [place] [address]- 3908 13 Feb, 2011 [facility] [place] [facility] [address] [facility] [id number], [place] [address]- 6748 Feb, [facility] [place] [facility] [address] [id number], [place] [address]- 7485 Jan, [facility] [place] [facility] [address] [id number], [place] [address]- 2367 17 Dec, 2010 [facility] [place] [facility] [address] [id number] [place] [address]- 7088 08 Feb, 2010 [facility] [place] [facility] [address] [id number], [place] [address]- 1346 Feb, [facility] [place] [facility] [address] [facility] [id number], [place] [address]- 3494 Feb, [facility] [place] [facility] [address] [id number], [place] [address]- 2016 Feb, [facility] [address] [id number], [place] [address]- 9229 Dec, [facility] [address] [id number], [place] [address]- 1427 Dec, [facility] [address] [id number], [place] [address]- 3962 Oct, [facility] [id number], [place] [address]- 1658 Jun, [facility] [id number], [place] [address]- 7000 Feb, [facility] [id number], [place] [address]- 5359 Feb, [facility] [id number], [place] [address]- 3627 Feb, [facility] [id number] [address] Dec, IMMUNIZATIONS No Known Immunizations SOCIAL HISTORY Never Assessed REASON FOR VISIT Prior Authorization Request PLAN OF CARE VITAL SIGNS MEDICATIONS Unknown Medications RESULTS No Results PROCEDURES No Known procedures INSTRUCTIONS MEDICATIONS ADMINISTERED No Known Medications MEDICAL (GENERAL) HISTORY Type Description Date Medical History obesity Medical History Hematologic disorder factor clotting problem Medical History DVT's Medical History Torn Rotator Cuff, repaired 09/23/17 Surgical History Lap Band 10/2012 Surgical History section 1985, 1987 Surgical History cholecystectomy Surgical History [facility] Filter 06/2009 Surgical History Left leg exploratory surgery r/t clot 1987 Surgical History left shoulder surgery 09/14/17 Hospitalization History Ruptured Ovarian Cyst with abd bleeding 11/2009
--- OUTSIDE RECORDS SUMMARY | 2018-08-02 08:51 | XMS REPORT ---
Author Author KIANA ASHLEY [facility] Address [address] [place] [address] Care Team Providers Care Doughnut Icer Name Role Phone ASHLEY BRUNO Unavailable PROBLEMS Type Condition ICD9-CM Code PIB71-BV Code Onset Dates Condition Status SNOMED Code Problem Presence of IVC filter Z95.828 Active 986515064 Problem Pelvic pain R10.2 Active 72756796 Problem 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 Active 256536046 Problem Obstructive sleep apnea G47.33 Active 50937130 Problem Morbid obesity E66.01 Active 592667349 Problem Excessive daytime sleepiness G47.19 Active 574374250142 Problem Peripheral edema R60.9 Active 578394683 Problem Thyroid nodule E04.1 Active 726107977 Problem Gastroesophageal reflux disease, esophagitis presence not specified K21.9 Active 654600031 Problem History of DVT (deep vein thrombosis) Z86.718 Active 687893478 Problem Hypertriglyceridemia E78.1 Active 503448329 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 503374919 Problem Factor V Leiden D68.51 Active 732871081 Problem Generalized anxiety disorder F41.1 Active 649660930 ALLERGIES No Information ENCOUNTERS Encounter Location Date Diagnosis [facility] [id number] [place] [address] 97250- 0827 Nov, Obstructive sleep apnea G47.33 ; Morbid obesity E66.01 and Gastroesophageal reflux disease, esophagitis presence not specified K21.9 [facility] [id number] [place] [address] [id number] Nov, [facility] [id number] [place] [address] 71939- 2639 Oct, Thyroid nodule E04.1 and Screening for breast cancer Z12.31 [facility] [id number] [place] [address] 29164- 4797 Oct, History of DVT (deep vein thrombosis) Z86.718 ; Thyroid nodule E04.1 and Gastroesophageal reflux disease, esophagitis presence not specified K21.9 [facility] [id number] [place] [address] 58872- 7408 Oct, [facility] [id number] [place] [address] 83125- 3499 Sep, [place] [id number] [place] [address] 46615- 6113 Aug, [place] [facility] [id number] [place] [address] 72293- 2342 Aug, [place] [facility] [id number] [place] [address] 42602- 8353 Aug, Acute pain of left shoulder M25.512 and Thyroid nodule E04.1 [place] [address] 52989- 0463 July, Superior glenoid labrum lesion of left shoulder, subsequent encounter S43.432D [facility] [id number] [place] [address] 33204- 7209 Jun, History of DVT (deep vein thrombosis) Z86.718 [facility] [id number] [place] [address] 91652- 4903 Jun, History of DVT (deep vein thrombosis) Z86.718 [facility] [id number] [place] [address] 31914- 8674 Jun, Impingement syndrome, shoulder, left M75.42 [facility] [id number] [place] [address] 13205- 7914 May, Subacromial bursitis of left shoulder joint M75.52 [facility] [id number] [place] [address] 28561- 6130 May, [facility] [address] [place] [address]- 6279 May, Hypertriglyceridemia E78.1 ; custodial (current) use of anticoagulants Z79.01 and Excessive daytime sleepiness G47.19 [place] [address] [place] [address] 72663 2546 May, History of DVT (deep vein thrombosis) Z86.718 ; Generalized anxiety disorder F41.1 ; Hypertriglyceridemia E78.1 ; 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 ; Subacromial bursitis of left shoulder joint M75.52 and Excessive daytime sleepiness G47.19 [facility] [id number] [place] [address] 92039- 6586 May, [facility] [facility] [id number] [place] [address] 68380 2546 May, custodial (current) use of anticoagulants Z79.01 [facility] [id number] [place] [address] 03419 2546 Apr, custodial (current) use of anticoagulants Z79.01 [facility] [address] [place] [address] 81642 2546 Apr, custodial (current) use of anticoagulants Z79.01 [facility] [id number] [place] [address] 64733 2546 Apr, custodial (current) use of anticoagulants Z79.01 [facility] [address] [place] [address] 39380 2546 Apr, [facility] [address] [place] [address] 50305 2546 Apr, custodial (current) use of anticoagulants Z79.01 [place] [address] [place] [address] 16444 2546 13 Apr, 2017 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 [place] [address] [place] [address] 09395195- 5395 Apr, 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 [facility] [id number] [place] [address] 66412- 6986 Apr, custodial (current) use of anticoagulants Z79.01 [facility] [id number] [place] [address] 64339- 4456 Apr, 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 [facility] [id number] [place] [address] 11096 2546 Apr, 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 [place] [id number] [place] [address] 399926- 5204 Mar, custodial (current) use of anticoagulants Z79.01 [place] [id number] [place] [address] 69771- 0206 Mar, [facility] [address] 57241- 4858 Mar, custodial (current) use of anticoagulants Z79.01 [facility] [address] [id number] Jan, Dental examination Z01.20 [facility] [address] [id number] Jan, [facility] [id number] [place] [address] 35292- 4146 Jan, custodial (current) use of anticoagulants Z79.01 [place] [address] [place] [address] 75508- 1406 17 Jan, 2017 History of DVT (deep vein thrombosis) Z86.718 [facility] [id number] [place] [address] 53359- 8904 07 Jan, 2017 Generalized anxiety disorder F41.1 and Peripheral edema R60.9 [facility] [id number] [place] [address] 60937- 6480 Nov, History of DVT (deep vein thrombosis) Z86.718 [facility] [address] [place] [address] 28270- 3775 Nov, custodial (current) use of anticoagulants Z79.01 [facility] [address] [place] [address] 82240 -6935 Nov, Acute non-recurrent maxillary sinusitis J01.00 [facility] [id number] [place] [address] 88181- 1547 Oct, 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 [place] [id number] [place] [address] 80580- 2696 Oct, Personal history of venous thrombosis and embolism Z86.718 [facility] [id number] [place] [address] 14667- 9601 Sep, [facility] [id number] [place] [address] 98937- 1962 Sep, Personal history of venous thrombosis and embolism Z86.718 [place] [id number] [place] [address] 23703- 5875 Sep, custodial (current) use of anticoagulants Z79.01 [place] [id number] [place] [address] 87531- 4325 Sep, 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 [facility] [address] [place] [address] 22903- 3903 Sep, Generalized anxiety disorder F41.1 and History of DVT (deep vein thrombosis) Z86.718 [place] [id number] [place] [address] 02468- 8633 Aug, History of DVT (deep vein thrombosis) Z86.718 ; Generalized anxiety disorder F41.1 ; custodial (current) use of anticoagulants Z79.01 ; Pelvic pain R10.2 ; Hypertriglyceridemia E78.1 ; Excessive daytime sleepiness G47.19 ; Colon cancer screening Z12.11 ; Screening for breast cancer Z12.39 ; Peripheral edema R60.9 and Gastroesophageal reflux disease, esophagitis presence not specified K21.9 [place] [address] 87793- 6768 Aug, [place] [address] 06181- 3436 July, [place] [address] 23456- 0812 July, History of DVT (deep vein thrombosis) Z86.718 [place] [address] 26555- 0246 Jun, Generalized anxiety disorder F41.1 [place] [address] 88115- 6420 Jun, History of DVT (deep vein thrombosis) Z86.718 [place] [address] 94887- 5502 Jun, History of DVT (deep vein thrombosis) Z86.718 [place] [address] 03206- 8826 Jun, History of DVT (deep vein thrombosis) Z86.718 [place] [address] 63576- 9919 Jun, History of DVT (deep vein thrombosis) Z86.718 [place] [id number] [place] [address] 12161- 2613 May, History of DVT (deep vein thrombosis) Z86.718 [place] [address] 39847- 6568 May, 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 [place] [address] 05354- 3209 May, 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 [facility] [address] [place] [address] 76777- 3721 May, History of DVT (deep vein thrombosis) Z86.718 [facility] [id number] [place] [address] 11799 -7216 27 Apr, 2016 Bacterial conjunctivitis of left eye H10.9 and H/O motion sickness Z87.898 [facility] [id number] [place] [address] 15195- 3536 24 Apr, 2016 History of DVT (deep vein thrombosis) Z86.718 [place] [id number] [place] [address] 33294- 6156 Apr, History of DVT (deep vein thrombosis) Z86.718 [place] [id number] [place] [address] 35996- 3339 15 Apr, 2016 History of DVT (deep vein thrombosis) Z86.718 [facility] [id number] [place] [address] 50900- 6342 14 Apr, 2016 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 [place] [id number] [place] [address] 80295- 7852 Mar, [place] [id number] [place] [address] 98788- 4057 Mar, 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 [place] [id number] [place] [address] 34457- 1708 Mar, Hypertriglyceridemia E78.1 and 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 [place] [id number] [place] [address] 90340- 4136 Feb, custodial (current) use of anticoagulants Z79.01 [place] [id number] [place] [address] 33304 2546 Feb, 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 [place] [address] [address]- 7446 Feb, 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 [place] [id number] [place] [address] 92174- 9816 Dec, [place] [id number] [place] [address] 91786 2546 Nov, [place] [id number] [place] [address] 82078 2546 Nov, History of DVT (deep vein thrombosis) Z86.718 ; Tremulousness R25.1 ; Generalized anxiety disorder F41.1 ; Peripheral edema R60.9 and Hypertriglyceridemia E78.1 [place] [address] [place] [address] 20751- 0826 Oct, History of DVT (deep vein thrombosis) Z86.718 [place] [id number] [place] [address] 95752 2546 Oct, [place] [id number] [place] [address] 02732 2542 Sep, History of DVT (deep vein thrombosis) Z86.718 [place] [address] [place] [address] 67141- 7685 Sep, custodial (current) use of anticoagulants Z79.01 [place] [address] [address] 2546 July, [place] [address] [place] [address] 77263 2546 July, custodial (current) use of anticoagulants Z79.01 [place] [address] [place] [address] 20604 2546 July, custodial (current) use of anticoagulants Z79.01 [place] [address] [place] [address] 60429 2546 Jun, custodial (current) use of anticoagulants Z79.01 [facility] [id number] [place] [address] 00621 -7726 Jun, Coccyx pain M53.3 ; Encounter for therapeutic drug level monitoring Z51.81 and custodial current use 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.01 [facility] [id number] [place] [address] 48001- 8206 May, Abnormal mammogram R92.8 [facility] [address] 13254 -7422 May, [facility] [address] 56409 -5109 May, Acute vaginitis N76.0 and Encounter for other screening for malignant neoplasm of breast Z12.39 [place] [address] 95772- 5542 Apr, [place] [address] 20630- 0407 Apr, [place] [address] 45009- 4211 Apr, Peripheral edema R60.9 [place] [id number] [place] [address] 66838- 4609 Apr, custodial (current) use of anticoagulants Z79.01 [place] [id number] [place] [address] 97222- 8849 Apr, Peripheral edema R60.9 and 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 [place] [id number] [place] [address] 52707- 4799 Apr, 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 [place] [id number] [place] [address] 46923- 9081 Apr, [place] [address] 74726- 2283 Apr, 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 [place] [id number] [place] [address] 13262- 6594 Apr, Peripheral edema R60.9 [place] [id number] [place] [address] 59695- 0268 Mar, custodial (current) use of anticoagulants Z79.01 [place] [id number] [place] [address] 30978- 3558 Mar, custodial (current) use of anticoagulants Z79.01 and Hypertriglyceridemia E78.1 [place] [address] 75574- 4112 Mar, 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 [place] [id number] [place] [address] 29710- 9318 Mar, 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 [place] [id number] [place] [address] 51151- 1982 Mar, [place] [address] 53090- 8178 Mar, 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 ; Hypertriglyceridemia E78.1 ; Personal history of venous thrombosis and embolism Z86.718 and Lump R22.9 [place] [id number] [place] [address] 60493- 5680 Mar, Personal history of venous thrombosis and embolism Z86.718 [place] [id number] [place] [address] 95471- 5323 Mar, Personal history of venous thrombosis and embolism Z86.718 [place] [id number] [place] [address] 76155- 4344 Mar, [place] [id number] [place] [address] 70304- 9954 Dec, Personal history of venous thrombosis and embolism Z86.718 [facility] [address] [address]- 6425 Dec, Personal history of venous thrombosis and embolism V12.51 [facility] [address] [facility] [id number] [address]- 0966 Nov, Personal history of venous thrombosis and embolism V12.51 [facility] [address] [facility] [id number], [place] [address] 2546 Nov, Personal history of venous thrombosis and embolism V12.51 [facility] [address] [facility] [id number], [place] [address] 2546 17 Nov, 2014 Personal history of venous thrombosis and embolism V12.51 [facility] [id number] [address]- 2540 Nov, Personal history of venous thrombosis and embolism V12.51 [facility] [id number] [address]- 5329 Nov, [facility] [address] [address]- 3090 Oct, Dysuria 788.1 [facility] [address] [address]- 4110 Oct, Personal history of venous thrombosis and embolism V12.51 [facility] [address] [address]- 3015 Oct, [facility] [id number] [address]- 2542 Oct, Personal history of venous thrombosis and embolism V12.51 [facility] [id number]- 6321 Sep, Personal history of venous thrombosis and embolism V12.51 [facility] [id number] [address]- 2542 Sep, Personal history of venous thrombosis and embolism V12.51 [facility] [address] [facility] [id number], [place] [address]- 0276 19 Aug, 2014 Personal history of venous thrombosis and embolism V12.51 [facility] [address] [address]- 0316 18 Aug, 2014 Personal history of venous thrombosis and embolism V12.51 [facility] [address]- 6775 15 Aug, 2014 Personal history of venous thrombosis and embolism V12.51 [facility] [id number]- 6873 July, Generalized anxiety disorder 300.02 ; Abdominal pain, left lower quadrant 789.04 and Personal history of venous thrombosis and embolism V12.51 [facility] [address] [address]- 2843 14 Jun, 2014 [facility] [address] [address]- 5806 Jun, [facility] [address] [address]- 8227 May, [facility] [address] [address]- 9296 27 May, 2014 [facility] [address] [address]- 5484 17 May, 2014 [facility] [address] [address]- 3922 17 May, 2014 [facility] [address] [address]- 8610 May, [facility] [address] 0951 May, [facility] [address] [address]- 9010 04 May, 2014 [facility] [address] [address]- 6120 May, [facility] [place] [facility] [address] [id number] [place] [address]- 7224 Apr, [facility] [place] [facility] [address] [id number] [place] [address]- 7346 Apr, [facility] [place] [facility] [address] [id number] [place] [address]- 3396 Apr, [facility] [place] [facility] [address] [id number] [place] [address]- 2319 Apr, [facility] [place] [facility] [address] [id number] [place] [address]- 5982 Apr, [facility] [place] [facility] [address] [id number] [place] [address]- 6845 Mar, [facility] [place] [facility] [address] [id number] [place] [address]- 3639 Mar, [facility] [place] [facility] [address] [id number] [place] [address]- 8008 Mar, [facility] [place] [facility] [address] [id number] [place] [address]- 8377 Mar, [facility] [place] [facility] [address] [facility] [id number] [place] [address]- 9372 Mar, [facility] [place] [facility] [address] [id number] [place] [address]- 1763 Mar, [facility] [place] [facility] [address] [id number] [place] [address]- 8910 Feb, [facility] [place] [facility] [address] [id number] [place] [address]- 0660 Feb, [facility] [place] [facility] [address] [id number] [place] 7005 Feb, [facility] [place] [facility] [address] [id number] [place] [address]- 6919 Feb, [facility] [place] [facility] [address] [id number] [place] [address]- 5496 Feb, [facility] [place] [facility] [address] [id number] [place] [address]- 7315 Feb, [facility] [place] [facility] [address] [id number] [place] 8048 Feb, [facility] [place] [facility] [address] [id number] [place] [address]- 1008 Feb, [facility] [place] [facility] [address] [id number] [place] [address]- 5132 Feb, [facility] [place] [facility] [address] [id number] [place] [address]- 5420 Feb, [facility] [place] [facility] [address] [id number] [place] [address]- 9195 Jan, [facility] [place] [facility] [address] [id number] [place] [address]- 2451 Jan, [facility] [place] [facility] [address] [id number] [place] [address]- 0411 Jan, [facility] [place] [facility] [address] [id number] [place] [address]- 4186 Jan, [facility] [place] [facility] [address] [id number] [place] [address] Jan, [facility] [place] [facility] [address] [id number] [place] [address] Jan, [facility] [place] [facility] [address] [id number] [place] [address] Jan, [facility] [place] [facility] [address] [id number] [place] [address] Jan, [facility] [place] [facility] [address] [id number] [place] [address] Jan, [facility] [place] [facility] [address] [id number] [place] [address] Jan, [facility] [place] [facility] [address] [id number] [place] [address] Dec, [facility] [place] [facility] [address] [id number] [place] [address] Dec, [facility] [place] [facility] [address] [id number] [place] [address] Dec, [facility] [place] [facility] [address] [id number] [place] [address] Dec, [facility] [place] [facility] [address] [id number] [place] [address] Dec, [facility] [place] [facility] [address] [id number] [place] [address] Dec, [facility] [place] [facility] [address] [id number] [place] [address] Dec, [facility] [place] [facility] [address] [id number] [place] [address] Dec, [facility] [place] [facility] [address] [id number] [place] [address] Dec, [facility] [place] [facility] [address] [id number] [place] [address] Dec, [facility] [place] [facility] [address] [id number], [place] [address] Dec, [facility] [place] [facility] [address] [id number], [place] [address] Dec, [facility] [place] [facility] [address] [id number] [place] [address] Dec, [facility] [place] [facility] [address] [id number], [place] [address] Dec, [facility] [place] [facility] [address] [id number] [place] [address] Dec, [facility] [place] [facility] [address] [id number] [place] [address] 30 Sep, 2013 [facility] [place] [facility] [address] [id number] [place] [address] 30 Sep, 2013 [facility] [place] [facility] [address] [id number] [place] [address] 26 Sep, 2013 [facility] [facility] [address] [id number] [place] [address] 2546 26 Sep, 2013 [facility] [place] [facility] [address] [id number] [place] [address] 2545 24 Sep, 2013 [facility] [place] [facility] [address] [id number] [place] [address] 2547 24 Sep, 2013 [facility] [place] [facility] [address] [id number] [place] [address] 2545 23 Sep, 2013 [facility] [place] [facility] [address] [id number] [place] [address] 2545 23 Sep, 2013 [facility] [place] [facility] [address] [id number] [place] [address]- 254 18 Sep, 2013 [facility] [place] [facility] [address] [id number] [place] [address] 2542 18 Sep, 2013 [facility] [place] [facility] [address] [id number] [place] [address] 2548 17 Sep, 2013 [facility] [place] [facility] [address] [id number] [place] [address] 2546 17 Sep, 2013 [facility] [place] [facility] [address] [id number] [place] [address] 2545 11 Sep, 2013 [facility] [place] [facility] [address] [id number] [place] [address] 2546 11 Sep, 2013 [facility] [place] [facility] [address] [id number] [place] [address] 2546 10 Sep, 2013 [facility] [place] [facility] [address] [id number] [place] [address] 2548 10 Nov, 2013 [facility] [place] [facility] [address] [id number] [place] [address]- 5954 08 Nov, 2013 [facility] [place] [facility] [address] [id number] [place] [address]- 2487 Nov, [facility] [place] [facility] [address] [id number] [place] [address]- 3586 Sep, [facility] [place] [facility] [address] [id number] [place] [address]- 9444 Sep, [facility] [place] [facility] [address] [id number] [place] [address]- 1649 Sep, [facility] [place] [facility] [address] [id number] [place] [address]- 9869 Sep, [facility] [place] [facility] [address] [id number] [place] [address]- 3925 Sep, [facility] [place] [facility] [address] [id number] [place] [address]- 1457 Sep, [facility] [place] [address] [id number] [place] [address]- 8819 Aug, [facility] [place] [address] [id number] [place] [address]- 5152 Aug, [facility] [place] [facility] [address] [id number] [place] [address]- 2180 Aug, [facility] [place] [facility] [address] [id number] [place] [address]- 0466 Aug, [facility] [place] [address] [id number] [place] [address]- 1338 24 Aug, 2013 [facility] [place] [facility] [address] [id number] [place] [address]- 0230 Aug, [facility] [address] [id number] [place] [address]- 5059 Aug, [facility] [place] [address] [id number] [place] [address]- 3654 Aug, [facility] [place] [address] [id number] [place] [address]- 7793 Aug, [facility] [place] [facility] [address] [id number] [place] [address]- 6756 Aug, [facility] [place] [address] [id number] [place] [address]- 7916 Aug, [facility] [place] [address] [id number] [place] [address]- 1354 July, [facility] [address] [id number] [place] [address]- 4826 July, [facility] [address] [id number] [place] [address]- 2941 Jun, [facility] [place] [facility] [address] [id number] [place] [address]- 4882 Jun, [facility] [place] [address] [id number] [place] [address]- 7123 Jun, [facility] [place] [facility] [address] [id number] [place] [address]- 4042 Jun, [facility] [place] [facility] [address] [id number] [place] [address]- 7846 Jun, [facility] [place] [address] [id number] [place] [address]- 9705 Jun, [facility] [place] [address] [id number] [place] [address]- 3222 15 Jun, 2013 [facility] [address] [id number] [place] [address]- 5791 Jun, [facility] [address] [id number] [place] [address]- 6042 Jun, [facility] [address] [id number] [place] [address]- 4258 Jun, [facility] [address] [id number] [place] [address]- 6695 10 Jun, 2013 [facility] [address] [id number] [place] [address]- 6119 Jun, [facility] [address] [id number] [place] [address]- 3956 May, [facility] [address] [id number] [place] [address]- 7716 May, [facility] [address] [id number] [place] [address]- 5206 May, [facility] [address] [id number] [place] [address]- 1364 May, [facility] [address] [id number] [place] [address]- 7520 May, [facility] [address] [id number] [place] [address]- 5902 May, [facility] [address] [id number] [place] [address]- 0533 May, [facility] [address] [id number] [place] [address]- 8057 May, [facility] [address] [id number] [place] [address]- 7571 May, [facility] [address] [id number] [place] [address]- 9815 May, [facility] [address] [id number] [place] [address]- 2072 May, [facility] [address] [id number] [place] [address]- 1120 May, [facility] [address] [id number] [place] [address]- 7853 Apr, [facility] [address] [id number] [place] [address]- 4617 Apr, [facility] [address] [id number] [place] [address]- 0476 Apr, [facility] [address] [facility] [id number] [place] [address]- 3156 Apr, [facility] [address] [facility] [id number] [place] [address]- 5616 Apr, [facility] [address] [facility] [id number] [place] [address]- 9163 Apr, [facility] [address] [id number] [place] [address]- 8398 Apr, [facility] [address] [facility] [id number] [place] [address]- 9412 Apr, [facility] [address] [facility] [id number] [place] [address]- 6475 Apr, [facility] [address] [facility] [id number] [place] [address]- 4589 Apr, [facility] [address] [facility] [id number] [place] [address]- 1060 Apr, [facility] [address] [facility] [id number] [place] [address]- 6564 Apr, [facility] [address] [facility] [id number] [place] [address]- 8876 Apr, [facility] [address] [facility] [id number] [place] [address]- 2547 Apr, [facility] [address] [facility] [id number] [place] [address]- 5938 Apr, [facility] [address] [facility] [id number] [place] [address]- 2035 Apr, [facility] [address] [facility] [id number] [place] [address]- 7406 13 Apr, 2013 [facility] [address] [id number] [place] [address]- 0255 Jan, [facility] [address] [id number] [place] [address]- 2109 Jan, [facility] [address] [id number] [place] [address]- 4136 Jan, [facility] [address] [id number] [place] [address]- 5403 Jan, [facility] [address] [id number] [place] [address]- 1410 Jan, [facility] [address] [id number] [place] [address]- 9234 Jan, [facility] [address] [id number] [place] [address]- 1802 Jan, [facility] [address] [id number], [place] [address]- 8927 Dec, [facility] [address] [id number] [place] [address]- 4224 Dec, [facility] [address] [id number], [place] [address]- 9706 Dec, [facility] [address] [id number], [place] [address]- 6144 Nov, [facility] [address] [id number], [place] [address]- 2011 10 Nov, 2012 [facility] [address] [id number] [place] [address]- 9138 05 Nov, 2012 [facility] [address] [id number], [place] [address]- 0837 04 Nov, 2012 [facility] [address] [id number], [place] [address]- 4709 Oct, [facility] [address] [id number], [place] [address]- 6160 Oct, [facility] [address] [id number] [place] [address]- 9456 Oct, [facility] [address] [id number] [place] [address]- 7470 Oct, [facility] [address] [id number] [place] [address]- 5545 Oct, [facility] [address] [id number] [place] [address]- 6614 Sep, [facility] [address] [id number] [place] [address]- 2350 Sep, [facility] [address] [id number] [place] [address]- 5693 Sep, [facility] [address] [id number] [place] [address]- 6403 Sep, [facility] [address] [id number] [place] [address]- 4130 Sep, [facility] [address] [id number] [place] [address]- 8550 Sep, [facility] [address] [id number] [place] [address]- 5301 Sep, [facility] [address] [id number] [place] [address]- 4535 Aug, [facility] [address] [id number] [place] [address]- 3112 Aug, [facility] [address] [id number] [place] [address]- 7854 July, [facility] [address] [id number] [place] [address]- 4941 30 Jun, 2012 [facility] [address] [id number] [place] [address]- 8401 Jun, [facility] [address] [id number] [place] [address]- 5871 Jun, [facility] [address] [id number] [place] [address]- 1440 Apr, [facility] [address] [id number] [place] [address]- 4256 Apr, [facility] [address] [id number] [place] [address]- 4686 Apr, [facility] [address] [id number] [place] [address]- 2755 Mar, [facility] [address] [id number] [place] [address]- 3081 Mar, [facility] [address] [id number] [place] [address]- 9793 Mar, [facility] [address] [id number] [place] [address]- 9920 Mar, [facility] [address] [id number] [place] [address]- 2513 Mar, [facility] [address] [id number] [place] [address]- 6011 14 Feb, 2012 [facility] [address] [id number] [place] [address]- 0599 14 Feb, 2012 [facility] [address] [id number] [place] [address]- 3277 13 Jan, 2012 [facility] [address] [id number] [place] [address]- 5058 13 Jan, 2012 [facility] [address] [id number] [place] [address]- 8453 13 Jan, 2012 [facility] [address] [id number] [place] [address]- 4045 13 Jan, 2012 [facility] [address] [id number] [place] [address]- 2500 Jan, [facility] [address] [id number] [place] [address]- 3800 Jan, [facility] [address] [id number] [place] [address]- 8366 Jan, [facility] [address] [facility] [id number] [place] [address]- 0636 Dec, [facility] [facility] [address] [id number] [place] [address]- 5992 Dec, [facility] [facility] [address] [id number] [place] [address] Dec, [facility] [facility] [address] [id number] [place]16 Dec, [facility] [address] [id number] [place] [address]- 4410 Dec, [facility] [address] [id number] [place] [address]- 8078 Dec, [facility] [place] [facility] [address] [id number] [place] [address]- 0138 Dec, [facility] [place] [facility] [address] [id number] [place] [address]- 7488 Dec, [facility] [facility] [address] [id number], [place] [address]- 8401 Dec, [facility] [facility] [address] [id number], [place] [address]- 1860 Dec, [facility] [facility] [address] [id number] [place] [address]- 3857 Oct, [facility] [facility] [address] [facility] [id number] [place] [address]- 4735 Oct, [facility] [place] [facility] [address] [id number] [place] [address]- 8386 Aug, [facility] [place] [facility] [address] [id number] [place] [address]- 1331 14 Aug, 2011 [facility] [address] [id number] [place] [address]- 5510 July, [facility] [address] [id number] [place] [address] 2546 17 Jun, 2011 [facility] [address] [id number] [place] [address]- 6136 Jun, [facility] [address] [id number] [place] [address]- 7378 May, [facility] [address] [id number] [place] [address]- 9740 Apr, [facility] [address] [id number] [place] [address]- 5906 Apr, [facility] [address] [id number] [place] [address]- 7369 Mar, [facility] [address] [id number] [place] [address]- 6400 Mar, [facility] [address] [id number] [place] [address]- 1649 19 Feb, 2011 [facility] [address] [facility] [id number] [place] [address]- 2561 15 Feb, 2011 [facility] [address] [id number] [place] [address]- 5470 13 Feb, 2011 [facility] [address] [id number] [place] [address]- 6964 13 Feb, 2011 [facility] [address] [id number] [place] [address]- 7075 11 Jan, 2011 [facility] [address] [id number] [place] [address]- 2546 17 Dec, 2010 [facility] [address] [facility] [id number] [place] [address]- 9967 Feb, [facility] [address] [facility] [id number], [place] [address]- 6508 Feb, [facility] [address] [facility] [id number][place] 8988 Feb, [facility] [address] [facility] [id number][place]68[place] 9998 Feb, [facility] [address] [facility] [id number], [place] [address]- 2218 Dec, [facility] [address] [facility] [id number], [place] [address]- 4199 Dec, [facility] [address] [facility] [id number], [place] [address]- 4136 Oct, [facility] [address] [facility] [id number], [place] [address]- 2624 Jun, [facility] [id number] [address]- 0727 Feb, [facility] [address] [facility] [id number], [place] [address]- 1941 Feb, [facility] [id number], [place] [address]- 7993 Feb, [facility] [address] [id number], [place] [address]- 0641 Dec, IMMUNIZATIONS No Known Immunizations SOCIAL HISTORY Never Assessed REASON FOR VISIT appt PLAN OF CARE VITAL SIGNS MEDICATIONS Unknown [...]
--- OUTSIDE RECORDS SUMMARY | 2018-08-02 08:52 | XMS REPORT ---
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 Active 863576887 Problem Thyroid nodule E04.1 Active 302556777 Problem Excessive daytime sleepiness G47.19 Active 212389721518 Problem Peripheral edema R60.9 Active 814374132 Problem Pelvic pain R10.2 Active 22229639 Problem Gastroesophageal reflux disease, esophagitis presence not specified K21.9 Active 065668666 Problem Presence of IVC filter Z95.828 Active 581555440 ALLERGIES No Information ENCOUNTERS Encounter Location Date Diagnosis [facility] [id number] [place] [address] [id number] Nov, [facility] [id number] [place] [address] 11113- 5169 Oct, History of DVT (deep vein thrombosis) Z86.718 ; Thyroid nodule E04.1 and Gastroesophageal reflux disease, esophagitis presence not specified K21.9 [facility] [id number] [place] [address] 60905- 1475 Oct, [facility] [id number] [place] [address] 02381- 1334 Sep, [facility] [address] 95816- 4110 Aug, [facility] [facility] [id number] [place] [address] 11337- 1339 Aug, [facility] [facility] [address] [id number]- 5416 Aug, Acute pain of left shoulder M25.512 and Thyroid nodule E04.1 [facility] [facility] [address] 58002- 6747 July, Superior glenoid labrum lesion of left shoulder, subsequent encounter S43.432D [facility] [facility] [address] 32642- 0447 Jun, History of DVT (deep vein thrombosis) Z86.718 [facility] [facility] [address] 83946- 3571 Jun, History of DVT (deep vein thrombosis) Z86.718 [facility] [id number] [place] [address] 36806- 3374 Jun, Impingement syndrome, shoulder, left M75.42 [facility] [id number] [place] [address] 96786- 3407 May, Subacromial bursitis of left shoulder joint M75.52 [facility] [id number] [place] [address] 84383- 6060 May, [facility] [facility] [address] 85189- 0605 May, Hypertriglyceridemia E78.1 ; penitentiary (current) use of anticoagulants Z79.01 and Excessive daytime sleepiness G47.19 [facility] [facility] [id number] [place] [address] 60619- 2038 May, History of DVT (deep vein thrombosis) Z86.718 ; Generalized anxiety disorder F41.1 ; Hypertriglyceridemia E78.1 ; recruitment 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 Z79.01 ; Subacromial bursitis of left shoulder joint M75.52 and Excessive daytime sleepiness G47.19 [facility] [facility] [id number] [place] [address] 08383 2546 May, [place] [facility] [address] 04356 2546 May, penitentiary (current) use of anticoagulants Z79.01 [facility] [facility] [id number] [place] [address] 25032 2546 23 Apr, 2017 recruitment 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 Z79.01 [place] [facility] [address] 52256 2546 Apr, recruitment 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 Z79.01 [place] [address] 78006 2546 20 Apr, 2017 penitentiary (current) use of anticoagulants Z79.01 [place] [address] 55803 2546 16 Apr, 2017 [place] [facility] [address] 61313 2546 16 Apr, 2017 recruitment 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 Z79.01 [facility] [facility] [id number] [place] [address] 49862 2546 13 Apr, 2017 penitentiary (current) use of anticoagulants Z79.01 [facility] [facility] [id number] [place] [address] 67664 2546 Apr, penitentiary (current) use of anticoagulants Z79.01 [place] [id number] [place] [address] 86915 2546 Apr, penitentiary (current) use of anticoagulants Z79.01 [place] [id number] [place] [address] 66876 2546 07 Apr, 2017 recruitment 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 Z79.01 [place] [facility] [id number] [place] [address] 90352- 7454 Apr, recruitment 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 Z79.01 [facility] [id number] [place] [address] 29473- 1835 Mar, penitentiary (current) use of anticoagulants Z79.01 [facility] [id number] [place] [address] 54904- 5426 Mar, [facility] [address] 50467- 1531 Mar, recruitment 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 Z79.01 [facility] [id number] [place] [address] [id number] Jan, Dental examination Z01.20 [facility] [address] [id number] Jan, [facility] [address] 62774- 9770 Jan, recruitment 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 Z79.01 [facility] [id number] [place] [address] 42603- 0751 Jan, History of DVT (deep vein thrombosis) Z86.718 [facility] [facility] [id number] [place] [address] 93763- 3198 Jan, Generalized anxiety disorder F41.1 and Peripheral edema R60.9 [facility] [id number] [place] [address] 23965- 6402 Nov, History of DVT (deep vein thrombosis) Z86.718 [facility] [id number] [place] [address] 32210- 3565 Nov, recruitment 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 Z79.01 [facility] [id number] [place] [address] 33415 -2491 Nov, Acute non-recurrent maxillary sinusitis J01.00 [facility] [id number] [place] [address] 69614- 7231 Oct, penitentiary (current) use of anticoagulants Z79.01 [place] [address] [place] [address] 40044- 3669 Oct, Personal history of venous thrombosis and embolism Z86.718 [facility] [facility] [id number] [place] [address] 08827- 4581 Sep, [facility] [facility] [address] 35632- 1236 Sep, Personal history of venous thrombosis and embolism Z86.718 [facility] [facility] [id number] [place] [address] 90725- 3375 Sep, recruitment 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 Z79.01 [facility] [facility] [id number] [place] [address] 12413- 4470 Sep, penitentiary (current) use of anticoagulants Z79.01 [facility] [facility] [id number] [place] [address] 08937- 3149 Sep, Generalized anxiety disorder F41.1 and History of DVT (deep vein thrombosis) Z86.718 [facility] [facility] [id number] [place] [address] 63098- 9537 Aug, History of DVT (deep vein thrombosis) Z86.718 ; Generalized anxiety disorder F41.1 ; recruitment 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 Z79.01 ; Pelvic pain R10.2 ; Hypertriglyceridemia E78.1 ; Excessive daytime sleepiness G47.19 ; Colon cancer screening Z12.11 ; Screening for breast cancer Z12.39 ; Peripheral edema R60.9 and Gastroesophageal reflux disease, esophagitis presence not specified K21.9 [facility] [facility] [id number] [place] [address] 03221- 6565 Aug, [facility] [facility] [id number] [place] [address] 01289- 1169 July, [facility] [facility] [id number] [place] [address] 23043- 9443 July, History of DVT (deep vein thrombosis) Z86.718 [facility] [id number] [place] [address] 18927- 6080 Jun, Generalized anxiety disorder F41.1 [facility] [id number] [place] [address] 10675- 2192 Jun, History of DVT (deep vein thrombosis) Z86.718 [facility] [facility] [address] 42585- 7771 Jun, History of DVT (deep vein thrombosis) Z86.718 [facility] [id number] [place] [address] 17754- 0462 Jun, History of DVT (deep vein thrombosis) Z86.718 [facility] [facility] [id number] [place] [address] 57973- 7381 Jun, History of DVT (deep vein thrombosis) Z86.718 [facility] [facility] [id number] [place] [address] 41621- 4036 May, History of DVT (deep vein thrombosis) Z86.718 [facility] [facility] [id number] [place] [address] 30786- 3864 May, penitentiary (current) use of anticoagulants Z79.01 [place] [facility] [id number] [place] [address] 01525- 0625 May, penitentiary (current) use of anticoagulants Z79.01 [facility] [facility] [id number] [place] [address] 38088- 9620 May, History of DVT (deep vein thrombosis) Z86.718 [facility] [address] 18630 -5343 Apr, Bacterial conjunctivitis of left eye H10.9 and H/O motion sickness Z87.898 [facility] [facility] [id number] [place] [address] 13125- 7975 Apr, History of DVT (deep vein thrombosis) Z86.718 [facility] [address] [address] 2546 23 Apr, 2016 History of DVT (deep vein thrombosis) Z86.718 [facility] [address] [place] [address] 86768 2546 15 Apr, 2016 History of DVT (deep vein thrombosis) Z86.718 [facility] [id number] [place] [address] 89409 2546 14 Apr, 2016 penitentiary (current) use of anticoagulants Z79.01 [place] [facility] [id number] [place] [address] 61750 2546 Mar, [facility] [facility] [id number] [place] [address] 20056 2546 Mar, penitentiary (current) use of anticoagulants Z79.01 [place] [id number] [place] [address] 21746 2546 Mar, Hypertriglyceridemia E78.1 and recruitment 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 Z79.01 [place] [facility] [id number] [place] [address] 81678 2546 Feb, penitentiary (current) use of anticoagulants Z79.01 [place] [facility] [id number] [place] [address] 06770 2546 Feb, recruitment 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 Z79.01 [place] [address] [place] [address] 02784 2546 Feb, penitentiary (current) use of anticoagulants Z79.01 [place] [facility] [id number] [place] [address] 73550 2546 Dec, [facility] [facility] [id number] [place] [address] 54045 2546 Nov, [facility] [facility] [id number] [place] [address] 61525159- 0735 Nov, History of DVT (deep vein thrombosis) Z86.718 ; Tremulousness R25.1 ; Generalized anxiety disorder F41.1 ; Peripheral edema R60.9 and Hypertriglyceridemia E78.1 [place] [facility] [address] 30605- 5919 Oct, History of DVT (deep vein thrombosis) Z86.718 [place] [address] 57065- 4293 Oct, [place] [facility] [address] 62946- 6126 Sep, History of DVT (deep vein thrombosis) Z86.718 [place] [address] 93942- 8861 Sep, recruitment 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 Z79.01 [place] [address] 40949- 6075 July, [place] [address] 68715- 3213 July, penitentiary (current) use of anticoagulants Z79.01 [place] [address] 64704- 4352 July, penitentiary (current) use of anticoagulants Z79.01 [place] [address] 13880- 2570 Jun, recruitment 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 Z79.01 [facility] [address] 44053 -4827 Jun, Coccyx pain M53.3 ; Encounter for therapeutic drug level monitoring Z51.81 and recruitment assistant current use 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.01 [place] [address] 54806- 7845 May, Abnormal mammogram R92.8 [facility] [address] 93985 -7981 May, [facility] [address] [place] [address] 79254 -9823 May, Acute vaginitis N76.0 and Encounter for other screening for malignant neoplasm of breast Z12.39 [facility] [id number] [place] [address] 36733- 3395 Apr, [facility] [address] 23385- 9688 Apr, [facility] [id number] [place] [address] 89152- 7423 Apr, Peripheral edema R60.9 [facility] [id number] [place] [address] 80350- 1335 Apr, penitentiary (current) use of anticoagulants Z79.01 [place] [id number] [place] [address] 58090- 5456 Apr, Peripheral edema R60.9 and penitentiary (current) use of anticoagulants Z79.01 [place] [facility] [id number] [place] [address] 65215- 6519 Apr, recruitment 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 Z79.01 [facility] [id number] [place] [address] 32496- 3968 Apr, [facility] [id number] [place] [address] 84795- 0174 Apr, recruitment 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 Z79.01 [place] [facility] [id number] [place] [address] 44432- 2546 Apr, Peripheral edema R60.9 [facility] [id number] [place] [address] 34817- 8640 Mar, recruitment 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 Z79.01 [place] [id number] [place] [address] 86573- 8568 Mar, recruitment 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 Z79.01 and Hypertriglyceridemia E78.1 [facility] [facility] [id number] [place] [address] 71450- 7616 Mar, recruitment 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 Z79.01 [place] [id number] [place] [address] 50544- 4053 Mar, recruitment 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 Z79.01 [place] [id number] [place] [address] 02343- 4439 Mar, [place] [facility] [id number] [place] [address] 98520- 7110 Mar, penitentiary (current) use of anticoagulants Z79.01 ; Hypertriglyceridemia E78.1 ; Personal history of venous thrombosis and embolism Z86.718 and Lump R22.9 [place] [facility] [id number] [place] [address] 42764- 0399 Mar, Personal history of venous thrombosis and embolism Z86.718 [facility] [facility] [id number] [place] [address] 44511- 1800 Mar, Personal history of venous thrombosis and embolism Z86.718 [place] [facility] [id number] [place] [address] 68678- 6661 Mar, [facility] [facility] [id number] [place] [address] 49593- 5519 Dec, Personal history of venous thrombosis and embolism Z86.718 [place] [facility] [id number] [place] [address] 52090- 5769 Dec, Personal history of venous thrombosis and embolism V12.51 [facility] [facility] [id number] [place] [address] 52612- 6273 Nov, Personal history of venous thrombosis and embolism V12.51 [facility] [facility] [id number] [place] [address] 97703- 8817 Nov, Personal history of venous thrombosis and embolism V12.51 [facility] [id number] [address]- 8356 17 Nov, 2014 Personal history of venous thrombosis and embolism V12.51 [facility] [address] [facility] [id number] [address]- 3829 Nov, Personal history of venous thrombosis and embolism V12.51 [facility] [address] [address]- 3689 Nov, [facility] [id number] [address]- 4140 Oct, Dysuria 788.1 [facility] [id number] [place] [address] 16794- 6897 Oct, Personal history of venous thrombosis and embolism V12.51 [facility] [address] [address]- 9636 Oct, [facility] [address] [address]- 1598 Oct, Personal history of venous thrombosis and embolism V12.51 [facility] [address] [address]- 2390 Sep, Personal history of venous thrombosis and embolism V12.51 [facility] [address] [address]- 9830 Sep, Personal history of venous thrombosis and embolism V12.51 [facility] [id number] [address]- 7501 Aug, Personal history of venous thrombosis and embolism V12.51 [facility] [id number] [address]- 9815 Aug, Personal history of venous thrombosis and embolism V12.51 [facility] [id number] [address]- 8336 Aug, Personal history of venous thrombosis and embolism V12.51 [facility] [address] [facility] [id number] [address]- 9990 July, Generalized anxiety disorder 300.02 ; Abdominal pain, left lower quadrant 789.04 and Personal history of venous thrombosis and embolism V12.51 [facility] [address] [facility] [id number] [place] [address]- [address] 14 Jun, 2014 [facility] [address] [facility] [id number] [place] [address]- 3662 Jun, [facility] [address] [facility] [id number] [place] [address]- 6882 May, [facility] [address] [address]- 2819 May, [facility] [address] 3241 May, [facility] [address] [address]- 1621 May, [facility] [id number] [address]- 2472 May, [facility] [address] [address]- 1417 May, [facility] [address] [address]- 5056 May, [facility] [address]- 6007 May, [facility] [id number] [address]- 0407 Apr, [facility] [address] [address]- 0314 Apr, [facility] [address] [facility] [id number] [address]- 2026 Apr, [facility] [address] [address]- 8456 Apr, [facility] [address] [id number] [place] [address]- 2126 Apr, [facility] [place] [facility] [address] [id number] [place] [address]- 1884 Mar, [facility] [place] [facility] [address] [id number] [place] [address]- 3271 Mar, [facility] [place] [facility] [address] [id number] [place] [address]- 9990 Mar, [facility] [place] [facility] [address] [id number] [place] [address]- 3423 Mar, [facility] [place] [facility] [address] [id number] [place] [address]- 3062 Mar, [facility] [place] [facility] [address] [id number] [place] [address]- 9700 Mar, [facility] [place] [facility] [address] [id number] [place] [address]- 6388 Feb, [facility] [place] [facility] [address] [id number] [place] [address]- 4065 Feb, [facility] [place] [facility] [address] [id number] [place] [address]- 8424 Feb, [facility] [place] [facility] [address] [id number] [place] [address]- 4739 Feb, [facility] [place] [facility] [address] [id number] [place] [address]- 5686 Feb, [facility] [place] [facility] [address] [id number] [place]- 5500 Feb, [facility] [place] [facility] [address] [id number] [place] [address]- 9333 Feb, [facility] [place] [facility] [address] [id number] [place] [address]- 6361 Feb, [facility] [place] [facility] [address] [id number] [place] [address]- 8818 Feb, [facility] [place] [facility] [address] [id number] [place] [address]- 9393 Feb, [facility] [place] [facility] [address] [id number] [place] [address]- 0727 Jan, [facility] [place] [facility] [address] [id number] [place] [address]- 6685 Jan, [facility] [place] [facility] [address] [id number] [place] [address]- 3499 Jan, [facility] [place] [facility] [address] [id number] [place] [address]- 7816 Jan, [facility] [place] [facility] [address] [id number] [place] [address]- 0441 Jan, [facility] [place] [facility] [address] [id number] [place] [address]- 1556 Jan, [facility] [place] [facility] [address] [id number] [place] [address] Jan, [facility] [place] [facility] [address] [id number] [place] [address] Jan, [facility] [place] [facility] [address] [id number] [place] [address] Jan, [facility] [place] [facility] [address] [id number] [place] [address] Jan, [facility] [place] [facility] [address] [id number] [place] [address] Dec, [facility] [place] [facility] [address] [id number] [place] [address] Dec, [facility] [place] [facility] [address] [id number] [place] [address] Dec, [facility] [place] [facility] [address] [id number] [place] [address] Dec, [facility] [place] [facility] [address] [id number] [place] [address] Dec, [facility] [place] [facility] [address] [id number] [place] [address] Dec, [facility] [place] [facility] [address] [id number] [place] [address] Dec, [facility] [place] [facility] [address] [id number] [place] [address] Dec, [facility] [place] [facility] [address] [id number] [place] [address] Dec, [facility] [place] [facility] [address] [id number] [place] [address] Dec, [facility] [place] [facility] [address] [id number] [place] [address] Dec, [facility] [place] [facility] [address] [id number] [place] [address] Dec, [facility] [place] [facility] [address] [id number] [place] [address] Dec, [facility] [place] [facility] [address] [id number] [place] [address] Dec, [facility] [place] [facility] [address] [id number] [place] [address] Dec, [facility] [place] [facility] [address] [id number] [address] Nov, [facility] [place] [facility] [address] [id number] [place] [address] Nov, [facility] [place] [facility] [address] [id number] [place] [address] Nov, [facility] [place] [facility] [address] [id number] [place] [address] Nov, [facility] [place] [facility] [address] [id number] [place] [address] 24 Sep, 2013 [facility] [place] [facility] [address] [id number] [place] [address] 24 Sep, 2013 [facility] [place] [facility] [address] [id number] [place] [address] 23 Sep, 2013 [facility] [place] [facility] [address] [id number] [place] [address] 23 Sep, 2013 [facility] [place] [facility] [address] [id number] [place] [address] 18 Sep, 2013 [facility] [place] [facility] [address] [id number] [place] [address] 18 Sep, 2013 [facility] [place] [facility] [address] [id number] [place] [address] 17 Nov, 2013 [facility] [place] [facility] [address] [address] [id number] [place] [address] 17 Nov, 2013 [facility] [place] [facility] [address] [id number] [place] [address] 11 Nov, 2013 [facility] [place] [facility] [address] [id number] [place] [address] 11 Nov, 2013 [facility] [place] [facility] [address] [id number] [place] [address] 10 Nov, 2013 [facility] [place] [facility] [address] [id number] [place] [address] 2547 10 Nov, 2013 [facility] [place] [facility] [address] [id number] [place] [address] 2548 08 Nov, 2013 [facility] [place] [facility] [address] [id number] [place] [address] 2541 08 Nov, 2013 [facility] [place] [facility] [address] [id number] [place] [address] 22 Sep, 2013 [facility] [place] [facility] [address] [id number] [place] [address]- 275[address] Sep, 2013 [facility] [place] [facility] [address] [id number] [place] [address] 4437 Sep, [facility] [place] [facility] [address] [id number] [place] [address]143 Sep, [facility] [place] [facility] [address] [id number] [place] [address] 8446 Sep, [facility] [place] [facility] [address] [id number] [place] [address]- 0455 Sep, [facility] [place] [facility] [address] [id number] [place] [address] 79[address] Aug, [facility] [place] [facility] [address] [id number] [place] [address]- 8088 Aug, [facility] [place] [facility] [address] [id number] [place] [address]- 3864 Aug, [facility] [place] [facility] [address] [id number] [place] [address]- 9985 Aug, [facility] [place] [facility] [address] [id number] [place] [address]- 4718 Aug, [facility] [place] [facility] [address] [id number] [place] [address]- 5692 Aug, [facility] [place] [facility] [address] [id number] [place] [address]- 5964 Aug, [facility] [place] [facility] [address] [id number] [place] [address]- 5417 Aug, [facility] [place] [facility] [address] [id number] [place] [address]- 9261 Aug, [facility] [place] [facility] [address] [id number] [place] [address]- 6076 Aug, [facility] [place] [facility] [address] [id number] [place] [address]- 5127 Aug, [facility] [place] [facility] [address] [id number] [place] [address]- 9144 July, [facility] [place] [facility] [address] [id number] [place] [address]- 1875 July, [facility] [place] [facility] [address] [id number] [place] [address]- 4450 Jun, [facility] [place] [facility] [address] [id number] [place] [address]- 7666 Jun, [facility] [place] [facility] [address] [id number] [place] [address]- 6197 Jun, [facility] [place] [facility] [address] [id number] [place] [address]- 7964 Jun, [facility] [place] [facility] [address] [id number] [place] [address]- 4223 Jun, [facility] [place] [facility] [address] [id number] [place] [address]- 9083 Jun, [facility] [place] [facility] [address] [id number] [place] [address]- 5808 Jun, [facility] [place] [facility] [address] [id number] [place] [address]- 8995 Jun, [facility] [place] [facility] [address] [id number] [place] [address]- 9357 Jun, [facility] [place] [facility] [address] [id number] [place] [address]- 8303 Jun, [facility] [place] [facility] [address] [id number] [address] Jun, [facility] [place] [facility] [address] [id number] [place] [address]- 6036 Jun, [facility] [place] [facility] [address] [id number] [place] [address]- 4930 May, [facility] [place] [facility] [address] [id number] [place] [address]- 6218 May, [facility] [place] [facility] [address] [id number] [place] [address]- 1450 May, [facility] [place] [facility] [address] [id number] [place] [address]- 0345 May, [facility] [place] [facility] [address] [id number] [place] [address]- 5806 May, [facility] [place] [facility] [address] [id number] [place] [address]- 8184 May, [facility] [place] [facility] [address] [id number] [place] [address]- 3004 May, [facility] [place] [facility] [address] [id number] [place] [address]- 0458 May, [facility] [place] [facility] [address] [id number] [place] [address]- 9741 May, [facility] [place] [facility] [address] [id number] [place] [address]- 8913 May, [facility] [place] [facility] [address] [id number] [place] [address]- 4145 May, [facility] [place] [facility] [address] [id number] [place] [address]- 1228 May, [facility] [place] [facility] [address] [facility] [id number] [place] [address]- 8836 Apr, [facility] [place] [facility] [address] [id number] [place] [address]- 9940 Apr, [facility] [place] [facility] [address] [id number] [place] [address]- 0564 Apr, [facility] [place] [facility] [address] [id number] [place] [address]- 2500 Apr, [facility] [place] [facility] [address] [id number] [place] [address]- 8762 Apr, [facility] [place] [facility] [address] [id number] [place] [address]- 7960 Apr, [facility] [place] [facility] [address] [id number] [place] [address]- 7658 Apr, [facility] [place] [facility] [address] [id number] [place] [address]- 3676 Apr, [facility] [place] [facility] [address] [facility] [id number] [place] [address]- 5360 Apr, [facility] [place] [facility] [address] [id number] [place] [address]- 6609 Apr, [facility] [place] [facility] [address] [id number] [place] [address]- 2018 Apr, [facility] [place] [facility] [address] [facility] [id number] [place] [address]- 4585 Apr, [facility] [place] [facility] [address] [facility] [id number] [place] [address]- 5736 Apr, [facility] [place] [facility] [address] [facility] [id number] [place] [address]- 7587 Apr, [facility] [place] [facility] [address] [facility] [id number] [place] [address]- 1131 Apr, [facility] [place] [facility] [address] [facility] [id number] [place] [address]- 1905 Apr, [facility] [place] [facility] [address] [facility] [id number] [place] [address]- 3175 Apr, [facility] [place] [facility] [address] [facility] [id number] [address] 3904 Jan, [facility] [place] [facility] [address] [facility] [id number] [place] [address]- 3552 Jan, [facility] [place] [facility] [address] [facility] [id number] [place] [address]- 5492 Jan, [facility] [place] [facility] [address] [facility] [id number], [place] [address]- 0938 Jan, [facility] [place] [facility] [address] [id number] [place] [address]- 2327 Jan, [facility] [place] [facility] [address] [id number] [place] [address]- 7690 Jan, [facility] [place] [facility] [address] [id number] [place] [address]- 6769 Jan, [facility] [place] [facility] [address] [id number] [place] [address]- 2764 Dec, [facility] [place] [facility] [address] [id number] [place] [address]- 9278 Dec, [facility] [place] [facility] [address] [id number] [place] [address]- 7450 Dec, [facility] [place] [facility] [address] [id number] [place] [address]- 0629 Nov, [facility] [place] [facility] [address] [id number] [place] [address]- 9015 Nov, [facility] [place] [facility] [address] [id number] [place] [address]- 6583 05 Nov, 2012 [facility] [place] [facility] [address] [id number] [place] [address]- 0099 Nov, [facility] [place] [facility] [address] [id number] [place] [address]- 8681 Oct, [facility] [place] [facility] [address] [id number] [place] [address]- 4121 Oct, [facility] [place] [facility] [address] [id number] [place] [address]- 5635 Oct, [facility] [place] [facility] [address] [id number] [place] [address]- 4311 Oct, [facility] [place] [facility] [address] [id number] [place] [address]- 6074 Oct, [facility] [place] [facility] [address] [id number] [place] [address]- 3353 Sep, [facility] [place] [facility] [address] [id number] [place] [address]- 9838 Sep, [facility] [place] [facility] [address] [id number] [place] [address]- 3904 Sep, [facility] [place] [facility] [address] [id number] [place] [address]- 8804 Sep, [facility] [place] [facility] [address] [id number] [place] [address]- 7653 Sep, [facility] [place] [facility] [address] [id number] [place] [address]- 3365 Sep, [facility] [place] [facility] [address] [id number] [place] [address]- 2492 Sep, [facility] [place] [facility] [address] [id number] [place] [address]- 4861 Aug, [facility] [place] [facility] [address] [id number] [place] [address]- 0676 Aug, [facility] [place] [facility] [address] [id number] [place] [address]- 7745 July, [facility] [place] [facility] [address] [id number] [place] [address]- 8124 Jun, [facility] [place] [facility] [address] [id number] [place] [address]- 7012 Jun, [facility] [place] [facility] [address] [id number] [place] [address]- 6681 Jun, [facility] [place] [facility] [address] [id number] [place] [address]- 0658 Apr, [facility] [place] [facility] [address] [id number] [place] [address]- 0831 Apr, [facility] [place] [facility] [address] [id number] [place] [address]- 8695 Apr, [facility] [place] [facility] [address] [id number] [place] [address]- 3536 Mar, [facility] [address] [id number] [place] [address]- 7253 Mar, [facility] [place] [facility] [address] [id number] [place] [address]- 1265 2012 [facility] [address] [id number] [place] [address]- 6742 Mar, [facility] [address] [id number] [place] [address]- 4550 Mar, [facility] [address] [id number] [place] [address]- 2010 14 Feb, 2012 [facility] [address] [id number] [place] [address]- 9662 14 Feb, 2012 [facility] [address] [id number] [place] [address]- 5618 Jan, [facility] [address] [id number] [place] [address]- 1045 Jan, [facility] [address] [id number] [place] [address]- 0709 Jan, [facility] [address] [id number] [place] [address]- 1394 13 Jan, 2012 [facility] [place] [facility] [address] [id number] [place] [address]- 7479 Jan, [facility] [address] [id number] [place] [address]- 0393 Jan, [facility] [place] [facility] [address] [id number] [place] [address]- 2036 Jan, [facility] [place] [facility] [address] [id number] [place] [address]- 1868 Dec, [facility] [place] [facility] [address] [id number] [place] [address]- 3781 Dec, [facility] [place] [facility] [address] [id number] [place] [address] Dec, [facility] [place] [facility] [address] [id number] [place] [address]- 9092 Dec, [facility] [place] [facility] [address] [id number] [place] [address] Dec, [facility] [place] [facility] [address] [id number] [place] [address]- 3227 Dec, [facility] [place] [facility] [address] [id number] [place] [address]49 Dec, [facility] [place] [facility] [address] [id number] [place] [address]- 3359 Dec, [facility] [place] [facility] [address] [id number] [place] [address]- 8546 Dec, [facility] [place] [facility] [address] [id number] [place] [address]- 1747 Dec, [facility] [place] [facility] [address] [id number] [place] [address]- 3945 Oct, [facility] [place] [facility] [address] [id number] [place] [address]- 7710 Oct, [facility] [place] [facility] [address] [id number] [place] [address]- 2763 Aug, [facility] [place] [facility] [address] [id number], [place] [address]- 6714 Aug, [facility] [place] [facility] [address] [id number] [place] [address]- 5226 July, [facility] [place] [facility] [address] [id number] [place] [address]- 8489 Jun, [facility] [place] [facility] [address] [id number] [place] [address]- 0352 Jun, [facility] [place] [facility] [address] [id number] [place] [address]- 9856 May, [facility] [address] [id number] [place] [address]- 1556 Apr, [facility] [place] [facility] [address] [id number] [place] [address]- 7086 16 Apr, 2011 [facility] [address] [id number] [place] [address]- 3646 Mar, [facility] [place] [facility] [address] [id number] [place] [address]- 5200 Mar, [facility] [address] [id number] [place] [address]- 8908 Feb, [facility] [place] [facility] [address] [id number] [place] [address]- 7237 15 Feb, 2011 [facility] [address] [id number] [place] [address]- 3802 Feb, [facility] [address] [id number] [place] [address]- 0716 13 Feb, 2011 [facility] [address] [id number] [place] [address]- 9731 Jan, [facility] [address] [id number] [place] [address]- 8781 17 Dec, 2010 [facility] [address] [id number] [place] [address]- 5344 08 Feb, 2010 [facility] [place] [facility] [address] [id number], [place] [address]- 1348 Feb, [facility] [place] [facility] [address] [id number] [place] [address]- 2901 Feb, [facility] [place] [facility] [address] [id number] [place] [address]- 7915 Feb, [facility] [place] [facility] [address] [id number], [place] [address]- 6864 15 Dec, 2009 [facility] [address] [id number], [place] [address]- 3077 Dec, [facility] [address] [id number], [place] [address]- 8327 Oct, [facility] [id number], [place] [address]- 1015 Jun, [facility] [id number], [place] [address]- 0801 Feb, [facility] [address] [id number], [place] [address]- 9560 Feb, [facility] [address] [id number], [place] [address]- [address]396 Feb, [facility] [address] [id number], [place] [address]- 9637 Dec, IMMUNIZATIONS No Known Immunizations SOCIAL HISTORY Never Assessed REASON FOR VISIT Controlled Med Refill-PRIOR AUTH PLAN OF CARE VITAL SIGNS MEDICATIONS Unknown [...]
--- OUTSIDE RECORDS SUMMARY | 2018-08-02 08:53 | XMS REPORT ---
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 Active 112736353 Problem Thyroid nodule E04.1 Active 721877121 Problem Excessive daytime sleepiness G47.19 Active 501895598651 Problem Peripheral edema R60.9 Active 701666223 Problem Pelvic pain R10.2 Active 60128125 Problem Gastroesophageal reflux disease, esophagitis presence not specified K21.9 Active 435761159 Problem Presence of IVC filter Z95.828 Active 961216057 ALLERGIES No Information ENCOUNTERS Encounter Location Date Diagnosis [facility] [id number] [place] [address] [id number] Nov, [facility] [id number] [place] [address] 35834- 0295 Oct, [facility] [id number] [place] [address] 30809- 6817 Sep, [facility] [address] 60632- 6620 Aug, [facility] [id number] [place] [address] 85799- 7301 Aug, [facility] [address] 72745- 5442 Aug, Acute pain of left shoulder M25.512 and Thyroid nodule E04.1 [place] [address] 31671- 7101 July, Superior glenoid labrum lesion of left shoulder, subsequent encounter S43.432D [place] [address] 33118- 3277 Jun, History of DVT (deep vein thrombosis) Z86.718 [place] [address] 38686- 1038 Jun, History of DVT (deep vein thrombosis) Z86.718 [place] [address] 20394- 3988 Jun, Impingement syndrome, shoulder, left M75.42 [place] [address] 11366- 3894 May, Subacromial bursitis of left shoulder joint M75.52 [place] [id number] [place] [address] 82528- 0892 May, [place] [address] 30345- 5722 May, Hypertriglyceridemia E78.1 ; senior care (current) use of anticoagulants Z79.01 and Excessive daytime sleepiness G47.19 [place] [id number] [place] [address] 74064- 6555 May, History of DVT (deep vein thrombosis) Z86.718 ; Generalized anxiety disorder F41.1 ; Hypertriglyceridemia E78.1 ; 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 ; Subacromial bursitis of left shoulder joint M75.52 and Excessive daytime sleepiness G47.19 [place] [id number] [place] [address] 60181- 7275 May, [place] [id number] [place] [address] 89892- 5495 May, 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 [facility] [id number] [place] [address] 04498 2546 Apr, 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 [facility] [address] [place] [address] 15032 2546 Apr, 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 [facility] [id number] [place] [address] 91211 2546 Apr, 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 [facility] [id number] [place] [address] 93749 2546 16 Apr, 2017 [facility] [id number] [place] [address] 63586 2546 16 Apr, 2017 senior care (current) use of anticoagulants Z79.01 [place] [id number] [place] [address] 40453 2546 13 Apr, 2017 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 [place] [id number] [place] [address] 69133 2546 Apr, 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 [place] [address] [place] [address] 93864 2546 Apr, senior care (current) use of anticoagulants Z79.01 [facility] [address] [place] [address] 36057 2546 07 Apr, 2017 senior care (current) use of anticoagulants Z79.01 [facility] [address] [place] [address] 99049 2546 Apr, senior care (current) use of anticoagulants Z79.01 [facility] [address] [place] [address] 41212 2546 Mar, 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 [facility] [id number] [place] [address] 78456- 6651 Mar, [facility] [address] 24042- 7750 Mar, senior care (current) use of anticoagulants Z79.01 [facility] [id number] [place] [address] [id number] Jan, Dental examination Z01.20 [facility] [address] [id number] Jan, [facility] [address] 98013- 9206 Jan, 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 [place] [id number] [place] [address] 80476- 5347 Jan, History of DVT (deep vein thrombosis) Z86.718 [place] [id number] [place] [address] 64216- 6160 Jan, Generalized anxiety disorder F41.1 and Peripheral edema R60.9 [place] [id number] [place] [address] 28051- 9523 Nov, History of DVT (deep vein thrombosis) Z86.718 [place] [id number] [place] [address] 69824- 2494 Nov, senior care (current) use of anticoagulants Z79.01 [facility] [address] [place] [address] 16779 -1251 Nov, Acute non-recurrent maxillary sinusitis J01.00 [facility] [id number] [place] [address] 72197- 7619 Oct, 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 [facility] [address] [place] [address] 79126- 0898 Oct, Personal history of venous thrombosis and embolism Z86.718 [place] [address] [address]- 9570 Sep, [place] [id number] [place] [address] 89361- 4532 Sep, Personal history of venous thrombosis and embolism Z86.718 [place] [id number] [place] [address] 89208- 4478 Sep, senior care (current) use of anticoagulants Z79.01 [place] [id number] [place] [address] 54761- 4261 Sep, 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 [place] [id number] [place] [address] 43581- 9136 Sep, Generalized anxiety disorder F41.1 and History of DVT (deep vein thrombosis) Z86.718 [place] [id number] [place] [address] 75378- 6880 Aug, History of DVT (deep vein thrombosis) Z86.718 ; Generalized anxiety disorder F41.1 ; senior care (current) use of anticoagulants Z79.01 ; Pelvic pain R10.2 ; Hypertriglyceridemia E78.1 ; Excessive daytime sleepiness G47.19 ; Colon cancer screening Z12.11 ; Screening for breast cancer Z12.39 ; Peripheral edema R60.9 and Gastroesophageal reflux disease, esophagitis presence not specified K21.9 [place] [address] [place] [address] 31718- 1984 Aug, [place] [id number] [place] [address] 54460- 6430 July, [place] [id number] [place] [address] 44505- 4830 July, History of DVT (deep vein thrombosis) Z86.718 [place] [address] [place] [address] 74552- 4093 Jun, Generalized anxiety disorder F41.1 [place] [address] [place] [address]- 2591 Jun, History of DVT (deep vein thrombosis) Z86.718 [facility] [id number] [place] [address] 75751- 3249 Jun, History of DVT (deep vein thrombosis) Z86.718 [facility] [id number] [place] [address] 83676- 1777 Jun, History of DVT (deep vein thrombosis) Z86.718 [place] [id number] [place] [address] 31574- 0461 Jun, History of DVT (deep vein thrombosis) Z86.718 [place] [id number] [place] [address] 44487- 3597 May, History of DVT (deep vein thrombosis) Z86.718 [place] [id number] [place] [address] 22360- 2277 May, senior care (current) use of anticoagulants Z79.01 [place] [id number] [place] [address] 43369- 1508 May, senior care (current) use of anticoagulants Z79.01 [place] [id number] [place] [address] 72000- 0020 May, History of DVT (deep vein thrombosis) Z86.718 [facility] [id number] [place] [address] 48066 -4344 Apr, Bacterial conjunctivitis of left eye H10.9 and H/O motion sickness Z87.898 [facility] [id number] [place] [address] 16872- 2465 Apr, History of DVT (deep vein thrombosis) Z86.718 [facility] [id number] [place] [address] 30259- 6496 Apr, History of DVT (deep vein thrombosis) Z86.718 [place] [id number] [place] [address] 09818- 5264 15 Apr, 2016 History of DVT (deep vein thrombosis) Z86.718 [place] [id number] [place] [address] 52857- 0152 14 Apr, 2016 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 [place] [id number] [place] [address] 87385- 8546 Mar, [place] [id number] [place] [address] 56567- 5443 Mar, senior care (current) use of anticoagulants Z79.01 [place] [id number] [place] [address] 77348- 8001 Mar, 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 and Hypertriglyceridemia E78.1 [place] [id number] [place] [address] 85802- 5035 Feb, senior care (current) use of anticoagulants Z79.01 [place] [id number] [place] [address] 76525- 0383 Feb, senior care (current) use of anticoagulants Z79.01 [place] [id number] [place] [address] 45538- 2934 Feb, senior care (current) use of anticoagulants Z79.01 [place] [address] [place] [address] 98583- 1966 Dec, [place] [id number] [place] [address] 16638- 2549 Nov, [place] [id number] [place] [address] 09204- 8744 13 Nov, 2015 History of DVT (deep vein thrombosis) Z86.718 ; Tremulousness R25.1 ; Generalized anxiety disorder F41.1 ; Peripheral edema R60.9 and Hypertriglyceridemia E78.1 [place] [id number] [place] [address] 22134- 5798 Oct, History of DVT (deep vein thrombosis) Z86.718 [place] [id number] [place] [address] 81606- 8369 Oct, [place] [id number] [place] [address] 36556- 7943 Sep, History of DVT (deep vein thrombosis) Z86.718 [place] [id number] [place] [address] 02519- 5895 Sep, 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 [place] [id number] [place] [address] 74420- 2190 July, [place] [address] 28397- 5116 July, 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 [place] [id number] [place] [address] 21624- 5328 July, 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 [place] [id number] [place] [address] 54147- 5532 Jun, 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 [facility] [id number] [place] [address] 40901 -1972 Jun, Coccyx pain M53.3 ; Encounter for therapeutic drug level monitoring Z51.81 and concrete pourer current use 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.01 [facility] [id number] [place] [address] 56114- 3974 May, Abnormal mammogram R92.8 [facility] [address] 47877 -0595 May, [facility] [id number] [place] [address] 01786 -9910 May, Acute vaginitis N76.0 and Encounter for other screening for malignant neoplasm of breast Z12.39 [place] [id number] [place] [address] 61751- 1667 Apr, [facility] [address] 00475- 3586 Apr, [facility] [id number] [place] [address] 59861- 5430 Apr, Peripheral edema R60.9 [place] [address] 48971- 2549 Apr, senior care (current) use of anticoagulants Z79.01 [place] [address] 60361- 1849 Apr, Peripheral edema R60.9 and 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 [place] [id number] [place] [address] 82069- 6630 Apr, 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 [place] [id number] [place] [address] 49649- 6936 Apr, [place] [address] 31020- 2542 Apr, 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 [place] [id number] [place] [address] 39515 2546 Apr, Peripheral edema R60.9 [place] [id number] [place] [address] 86507- 1020 Mar, senior care (current) use of anticoagulants Z79.01 [place] [id number] [place] [address] 41343- 1646 Mar, senior care (current) use of anticoagulants Z79.01 and Hypertriglyceridemia E78.1 [place] [id number] [place] [address] 72926- 5069 Mar, senior care (current) use of anticoagulants Z79.01 [facility] [address] [address]- 6766 Mar, 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 [facility] [address] [place] [address] 88396- 5030 Mar, [facility] [id number] [place] [address] 29607- 2488 Mar, senior care (current) use of anticoagulants Z79.01 ; Hypertriglyceridemia E78.1 ; Personal history of venous thrombosis and embolism Z86.718 and Lump R22.9 [place] [id number] [place] [address] 07588- 2077 Mar, Personal history of venous thrombosis and embolism Z86.718 [place] [id number] [place] [address] 54287- 1910 Mar, Personal history of venous thrombosis and embolism Z86.718 [place] [id number] [place] [address] 85798- 1892 Mar, [place] [id number] [place] [address] 81838- 9000 Dec, Personal history of venous thrombosis and embolism Z86.718 [place] [id number] [place] [address] 39424- 0599 Dec, Personal history of venous thrombosis and embolism V12.51 [place] [id number] [place] [address] 06360- 0018 28 Nov, 2014 Personal history of venous thrombosis and embolism V12.51 [place] [id number] [place] [address] 51592- 2530 25 Nov, 2014 Personal history of venous thrombosis and embolism V12.51 [place] [address] [place] [address] 41777- 2432 17 Nov, 2014 Personal history of venous thrombosis and embolism V12.51 [place] [id number] [address]- 2676 Nov, Personal history of venous thrombosis and embolism V12.51 [facility] [address] 4704 Nov, [facility] [address] [address]- 8911 Oct, Dysuria 788.1 [facility] [address] [place] [address] 19741- 4084 Oct, Personal history of venous thrombosis and embolism V12.51 [facility] [address] [address]- 7399 Oct, [facility] [address] [address]- 8637 Oct, Personal history of venous thrombosis and embolism V12.51 [facility] [address] [address]- 7735 Sep, Personal history of venous thrombosis and embolism V12.51 [facility] [address] [address]- 5529 Sep, Personal history of venous thrombosis and embolism V12.51 [facility] [address] [address]- 9223 Aug, Personal history of venous thrombosis and embolism V12.51 [facility] [address] [address]- 6550 Aug, Personal history of venous thrombosis and embolism V12.51 [facility] [id number] [address]- 0353 Aug, Personal history of venous thrombosis and embolism V12.51 [facility] [id number]- 9448 July, Generalized anxiety disorder 300.02 ; Abdominal pain, left lower quadrant 789.04 and Personal history of venous thrombosis and embolism V12.51 [facility] [address] [facility] [id number] [place] [address]- 1679 14 Jun, 2014 [facility] [place] [facility] [address] [id number] [place] [address]- 9820 13 Jun, 2014 [facility] [place] [facility] [address] [id number] [place] [address]- 0464 27 May, 2014 [facility] [place] [facility] [address] [id number] [place] [address]- 6965 May, [facility] [place] [facility] [address] [id number] [place] [address]- 2552 May, [facility] [place] [facility] [address] [id number] [place] [address]- 9301 17 May, 2014 [facility] [place] [facility] [address] [id number] [place] [address]- 1417 May, [facility] [place] [facility] [address] [id number] [place] [address]- 3485 May, [facility] [place] [facility] [address] [id number] [place] [address]- 6072 May, [facility] [place] [facility] [address] [id number] [place] [address]- 1509 May, [facility] [place] [facility] [address] [id number] [place] [address]- 8118 Apr, [facility] [place] [facility] [address] [id number] [place] [address]- 4869 Apr, [facility] [place] [facility] [address] [id number] [place] [address]- 1824 Apr, [facility] [place] [facility] [address] [id number] [place] [address]- 6663 Apr, [facility] [place] [facility] [address] [id number] [place] [address]- 5594 Apr, [facility] [place] [facility] [address] [id number] [place] [address]- 5316 Mar, [facility] [place] [facility] [address] [id number] [place] [address]- 0074 Mar, [facility] [place] [facility] [address] [id number] [place] [address]- 7909 Mar, [facility] [place] [facility] [address] [id number] [place] [address]- 6039 Mar, [facility] [place] [facility] [address] [id number] [place] [address]- 5076 Mar, [facility] [place] [facility] [address] [id number] [place] [address]- 8053 Mar, [facility] [place] [facility] [address] [id number] [place] [address]- 5359 Feb, [facility] [place] [facility] [address] [id number] [place] [address]- 3274 Feb, [facility] [place] [facility] [address] [id number] [place] [address]- 1774 Feb, [facility] [place] [facility] [address] [id number] [place] [address]- 2255 Feb, [facility] [place] [facility] [address] [id number] [place] [address]- 3134 Feb, [facility] [place] [facility] [address] [id number] [place] [address]- 5697 Feb, [facility] [place] [facility] [address] [id number] [place] [address]- 3910 Feb, [facility] [place] [facility] [address] [id number] [place] [address]- 6942 Feb, [facility] [place] [facility] [address] [id number] [place] [address]- 4930 Feb, [facility] [place] [facility] [address] [id number] [place] [address]- 2280 Feb, [facility] [place] [facility] [address] [id number] [place] [address]- 4381 Jan, [facility] [place] [facility] [address] [id number] [place] [address]- 0012 Jan, [facility] [place] [facility] [address] [id number] [place] [address]- 6389 Jan, [facility] [place] [facility] [address] [id number] [place] [address]- 4992 Jan, [facility] [place] [facility] [address] [id number] [place] [address]- 0423 Jan, [facility] [place] [facility] [address] [id number] [place] [address]- 8758 Jan, [facility] [place] [facility] [address] [id number] [place] [address]- 3900 Jan, [facility] [place] [facility] [address] [id number] [place] [address]- 9977 Jan, [facility] [place] [facility] [address] [id number] [place] [address]- 4986 Jan, [facility] [place] [facility] [address] [id number] [place] [address]- 4874 Jan, [facility] [place] [facility] [address] [facility] [id number] [place] [address]- 3591 Dec, [facility] [place] [facility] [address] [id number] [place] [address]- 3593 Dec, [facility] [place] [facility] [address] [id number] [place] [address]- 8058 Dec, [facility] [place] [facility] [address] [id number] [place] [address]- 8964 Dec, [facility] [place] [facility] [address] [id number] [place] [address] Dec, [facility] [place] [facility] [address] [id number] [place] [address] Dec, [facility] [place] [facility] [address] [id number] [place] [address] Dec, [facility] [place] [facility] [address] [id number] [place] [address] Dec, [facility] [place] [facility] [address] [id number] [place] [address] Dec, [facility] [place] [facility] [address] [id number] [place] [address] Dec, [facility] [place] [facility] [address] [id number] [place] [address] Dec, [facility] [place] [facility] [address] [id number] [place] [address] Dec, [facility] [place] [facility] [address] [id number] [place] [address] Dec, [facility] [place] [facility] [address] [id number] [place] [address] Dec, [facility] [place] [facility] [address] [id number] [place] [address] Dec, [facility] [place] [facility] [address] [id number] [place] [address] 30 Nov, 2013 [facility] [place] [facility] [address] [id number][place] [address] 30 Nov, 2013 [facility] [place] [facility] [address] [id number], [place] [address] 26 Nov, 2013 [facility] [place] [facility] [address] [id number] [place] [address] Nov, [facility] [place] [facility] [address] [id number] [place] [address] 24 Nov, 2013 [facility] [place] [facility] [address] [id number][place] [address] 24 Nov, 2013 [facility] [place] [facility] [address] [id number], [place] [address] 23 Nov, 2013 [facility] [place] [facility] [address] [id number] [place] [address] 23 Nov, 2013 [facility] [place] [facility] [address] [id number] [place] [address]- [address] 18 Nov, 2013 [facility] [place] [facility] [address] [id number] [place] [address] 18 Nov, 2013 [facility] [place] [facility] [address] [id number] [place] [address] 17 Nov, 2013 [facility] [place] [facility] [address] [id number] [place] [address] 17 Nov, 2013 [facility] [place] [facility] [address] [id number] [place] [address] 11 Nov, 2013 [facility] [place] [facility] [address] [id number] [place] [address] 11 Nov, 2013 [facility] [facility] [address] [id number] [place] [address] 10 Nov, 2013 [facility] [place] [facility] [address] [id number] [place] [address] 10 Nov, 2013 [facility] [place] [facility] [address] [id number] [place] [address] 08 Nov, 2013 [facility] [place] [facility] [address] [id number] [place] [address] 08 Nov, 2013 [facility] [place] [facility] [address] [id number] [place] [address] Sep, [facility] [place] [facility] [address] [id number] [place] [address] Sep, 2013 [facility] [place] [facility] [address] [id number] [place] [address] 6[address] Sep, 2013 [facility] [place] [facility] [address] [id number] [place] [address]- 90[address] Sep, 2013 [facility] [place] [facility] [address] [id number] [place] [address] Sep, [facility] [place] [facility] [address] [id number] [place] [address]- 3528 Sep, [facility] [place] [facility] [address] [id number] [place] [address] 2[address] Aug, [facility] [place] [facility] [address] [id number] [place] [address]- 6454 Aug, [facility] [place] [facility] [address] [id number] [place] [address]- 2689 Aug, [facility] [place] [facility] [address] [id number] [place] [address]- 6692 Aug, [facility] [place] [facility] [address] [id number] [place] [address]- 6699 Aug, [facility] [place] [facility] [address] [id number] [place] [address]- 1634 Aug, [facility] [place] [facility] [address] [id number] [place] [address]- 0638 Aug, [facility] [place] [facility] [address] [id number] [place] [address]- 4732 Aug, [facility] [place] [facility] [address] [id number] [place] [address]- 2373 Aug, [facility] [place] [facility] [address] [id number] [place] [address]- 7569 Aug, [facility] [place] [facility] [address] [id number] [place] [address]- 5838 Aug, [facility] [place] [facility] [address] [id number] [place] [address]- 9964 July, [facility] [place] [facility] [address] [id number] [place] [address]- 4285 July, [facility] [place] [facility] [address] [id number] [place] [address]- 0775 Jun, [facility] [place] [facility] [address] [id number] [place] [address]- 2255 Jun, [facility] [place] [facility] [address] [id number] [place] [address]- 2118 Jun, [facility] [place] [facility] [address] [id number] [place] [address]- 9252 Jun, [facility] [place] [facility] [address] [id number] [place] [address]- 1164 Jun, [facility] [place] [facility] [address] [id number] [place] [address]- 5585 Jun, [facility] [place] [facility] [address] [id number] [place] [address]- 4242 Jun, [facility] [place] [facility] [address] [id number] [place] [address]- 9808 Jun, [facility] [place] [facility] [address] [id number] [place] [address]- 0612 Jun, [facility] [place] [facility] [address] [id number] [place] [address]- 0340 Jun, [facility] [place] [facility] [address] [id number] [place] [address]- 3893 Jun, [facility] [place] [facility] [address] [id number] [place] [address]- 9661 Jun, [facility] [place] [address] [id number] [address] 78[address] May, [facility] [address] [id number] [place] [address]- 9498 May, [facility] [place] [facility] [address] [id number] [place] [address]- 5476 May, [facility] [place] [facility] [address] [id number] [place] [address]- 4377 May, [facility] [place] [facility] [address] [id number] [place] [address]- 3093 May, [facility] [place] [facility] [address] [id number] [place] [address]- 2344 May, [facility] [place] [address] [id number] [place] [address] May, [facility] [address] [id number] [place] [address]- 2616 May, [facility] [address] [id number] [place] [address]- 1410 May, [facility] [address] [id number] [place] [address]- 4671 May, [facility] [address] [id number] [place] [address]- 8611 May, [facility] [address] [id number] [place] [address]- 8893 May, [facility] [address] [id number] [place] [address]- 7759 Apr, [facility] [address] [id number] [place] [address]- 3460 Apr, [facility] [address] [facility] [id number] [place] [address]- 8424 Apr, [facility] [address] [id number] [place] [address]- 7747 Apr, [facility] [address] [id number] [place] [address]- 8965 Apr, [facility] [address] [id number] [place] [address]- 2263 Apr, [facility] [address] [id number] [place] [address]- 2895 Apr, [facility] [address] [facility] [id number] [place] [address]- 5899 Apr, [facility] [address] [id number] [place] [address]- 9558 Apr, [facility] [address] [id number] [place] [address]- 7986 Apr, [facility] [address] [facility] [id number] [place] [address]- 4530 Apr, [facility] [address] [id number] [place] [address]- 3510 Apr, [facility] [address] [id number] [place] [address]- 4381 Apr, [facility] [address] [facility] [id number] [place] [address]- 2126 Apr, [facility] [address] [facility] [id number] [place] [address]- 4375 Apr, [facility] [address] [facility] [id number] [place] [address]- 9710 Apr, [facility] [address] [facility] [id number] [place] [address]- 6868 Apr, [facility] [address] [facility] [id number] [place] [address]- 8589 Jan, [facility] [address] [facility] [id number] [place] [address]- 4952 Jan, [facility] [address] [facility] [id number] [address] 08 Jan, 2013 [facility] [address] [facility] [id number] [place] [address]- 7294 Jan, [facility] [address] [facility] [id number] [place] [address]- 4850 07 Jan, 2013 [facility] [address] [facility] [id number] [place] [address]- 0395 Jan, [facility] [address] [id number] [place] [address]- 7249 Jan, [facility] [address] [id number] [place] [address]- 9559 Dec, [facility] [address] [id number] [place] [address]- 4162 Dec, [facility] [address] [id number] [place] [address]- 9859 Dec, [facility] [address] [id number] [place] [address]- 1373 Nov, [facility] [address] [id number] [place] [address]- 9219 10 Nov, 2012 [facility] [address] [id number] [place] [address]- 6276 05 Nov, 2012 [facility] [address] [id number] [place] [address]- 6497 Nov, [facility] [address] [id number] [place] [address]- 4163 Oct, [facility] [address] [id number] [place] [address]- 5818 Oct, [facility] [address] [id number] [place] [address]- 4765 Oct, [facility] [address] [id number] [place] [address]- 4373 Oct, [facility] [address] [id number] [place] [address]- 7865 Oct, [facility] [address] [id number] [place] [address]- 5621 Sep, [facility] [address] [id number] [place] [address]- 0085 Sep, [facility] [address] [id number] [place] [address]- 3723 Sep, [facility] [address] [id number] [place] [address]- 4641 Sep, [facility] [address] [id number] [place] [address]- 2529 Sep, [facility] [address] [id number] [place] [address]- 2252 Sep, [facility] [address] [id number] [place] [address]- 8248 Sep, [facility] [address] [id number] [place] [address]- 1992 Aug, [facility] [address] [id number] [place] [address]- 8046 Aug, [facility] [address] [id number] [place] [address]- 0806 July, [facility] [address] [id number] [place] [address]- 9434 Jun, [facility] [address] [id number] [place] [address]- 9306 Jun, [facility] [address] [id number] [place] [address]- 4986 Jun, [facility] [address] [id number] [place] [address]- 3734 Apr, [facility] [address] [id number] [place] [address]- 1890 Apr, [facility] [address] [id number] [place] [address]- 6036 Apr, [facility] [address] [id number] [place] [address] Mar, [facility] [address] [id number] [place] [address]- 2267 Mar, [facility] [address] [id number] [place] [address]- 6606 2012 [facility] [address] [id number] [place] [address]- 8791 09 Mar, 2012 [facility] [address] [id number] [place] [address]- 2540 07 Mar, 2012 [facility] [address] [id number] [place] [address]- 2642 14 Feb, 2012 [facility] [address] [id number] [place] [address]- 6636 14 Feb, 2012 [facility] [address] [id number] [place] [address], [place] [address]- 6824 13 Jan, 2012 [facility] [address] [id number] [place] [address]- 3982 13 Jan, 2012 [facility] [address] [id number] [place] [address]- 1395 Jan, [facility] [address] [id number] [place] [address]- 8405 13 Jan, 2012 [facility] [address] [facility] [id number] [place] [address]- 0878 07 Jan, [address] [facility] [address] [facility] [id number] [place] [address]- 6033 07 Jan, 2012 [facility] [address] [id number] [place] [address]- 9379 Jan, [facility] [address] [id number] [place] [address]- 8730 Dec, [facility] [address] [id number] [place] [address]- 1175 Dec, [facility] [address] [facility] [id number] [place] [address]- 5234 Dec, [facility] [address] [id number] [place] [address]- 2399 Dec, [facility] [address] [id number] [place] [address]- 7379 Dec, [facility] [address] [id number] [place] [address]- 2320 Dec, [facility] [address] [id number] [place] [address]- 1550 Dec, [facility] [address] [id number] [place] [address]- 5526 Dec, [facility] [address] [id number] [place] [address]- 7553 Dec, [facility] [address] [id number] [place] [address]- 0276 Dec, [facility] [facility] [address] [id number] [place] [address]- 1814 Oct, [facility] [address] [id number] [place] [address]- 6132 Oct, [facility] [address] [id number] [place] [address]- 3611 Aug, [facility] [address] [facility] [id number], [place] [address]- 0091 Aug, [facility] [address] [facility] [id number], [place] [address]- 8756 July, [facility] [address] [id number], [place] [address]- 6106 Jun, [facility] [facility] [address] [id number] [place] [address]- 3746 Jun, [facility] [address] [id number], [place] [address]- 2926 May, [facility] [address] [id number], [place] [address]- 7616 Apr, [facility] [address] [id number], [place] [address]- 8819 16 Apr, 2011 [facility] [address] [id number] [place] [address]- 0600 Mar, [facility] [address] [facility] [id number] [place] [address]- 2786 16 Mar, 2011 [facility] [address] [facility] [id number] [place] [address]- 5386 Feb, [facility] [facility] [address] [id number] [place] [address]- 6218 15 Feb, 2011 [facility] [address] [id number] [place] [address]- 8552 Feb, [facility] [address] [id number] [place] [address]- 4565 Feb, [facility] [address] [facility] [id number] [place] [address]- 6309 Jan, [facility] [place] [facility] [address] [id number] [place] [address]- 1427 Dec, [facility] [address] [facility] [id number] [place] [address]- 4248 Feb, [facility] [place] [facility] [address] [facility] [id number] [place] [address]- 7560 Feb, [facility] [place] [facility] [address] [facility] [id number] [place] [address]- 3363 Feb, [facility] [place] [facility] [address] [facility] [id number], [place] [address]- 1940 Feb, [facility] [place] [facility] [address] [facility] [id number], [place] [address]- 0617 15 Dec, 2009 [facility] [place] [facility] [address] [facility] [id number], [place] [address]- 7944 15 Dec, 2009 [facility] [place] [facility] [address] [facility] [id number], [place] [address]- 2399 Oct, [facility] [place] [facility] [address] [facility] [id number], [place] [address]- 0346 Jun, [facility] [address] [facility] [id number], [place] [address]- 9878 Feb, [facility] [address] [facility] [id number], [place] [address]- 6796 Feb, [facility] [address] [facility] [id number][place] [address]- 1303 Feb, [facility] [address] [facility] [id number] [address] Dec, IMMUNIZATIONS No Known Immunizations SOCIAL HISTORY Never Assessed REASON FOR VISIT Subacromial bursitis vs upper arm pathology PLAN OF CARE Activity Details Follow Up 6 Weeks Reason: VITAL SIGNS Height 64 in 2017-07-16 Blood pressure systolic 122 mmHg 2017-07-16 Blood pressure diastolic 78 mmHg 2017-07-16 MEDICATIONS Unknown Medications RESULTS No Results PROCEDURES Procedure Date Ordered Result Body Site DRAIN/INJECT, JOINT/BURSA July 16, 2017 DEPO MEDROL 80 MG/ML July 16, 2017 INSTRUCTIONS MEDICATIONS ADMINISTERED No Known Medications MEDICAL (GENERAL) HISTORY Type Description Date Medical History obesity Medical History Hematologic disorder factor clotting problem Medical History DVT's Surgical History Lap Band 10/2012 Surgical History section 1987 Surgical History cholecystectomy Surgical History [place] Filter 06/2009 Surgical History Left leg exploratory surgery r/t clot 1987 Surgical History left shoulder surgery 09/14/17 Hospitalization History Ruptured Ovarian Cyst with abd bleeding 11/2009
--- OUTSIDE RECORDS SUMMARY | 2018-08-02 08:53 | XMS REPORT ---
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 072285947 Problem Thyroid nodule E04.1 Active 654702012 Problem Excessive daytime sleepiness G47.19 Active 397798832741 Problem Peripheral edema R60.9 Active 553146945 Problem Pelvic pain R10.2 Active 84340217 Problem Gastroesophageal reflux disease, esophagitis presence not specified K21.9 Active 771910027 Problem Presence of IVC filter Z95.828 Active 117310197 ALLERGIES No Information ENCOUNTERS Encounter Location Date Diagnosis [facility] [id number] [place] [address] [id number] Nov, [facility] [id number] [place] [address] 98177- 9703 Oct, History of DVT (deep vein thrombosis) Z86.718 ; Thyroid nodule E04.1 and Gastroesophageal reflux disease, esophagitis presence not specified K21.9 [facility] [id number] [place] [address] 73747- 2017 Oct, [facility] [id number] [place] [address] 84793- 7287 Sep, [facility] [address] 69634- 0567 Aug, [facility] [facility] [id number] [place] [address] 81903- 1108 Aug, [place] [facility] [address] [id number]- 6501 Aug, Acute pain of left shoulder M25.512 and Thyroid nodule E04.1 [place] [address] 50626- 7129 July, Superior glenoid labrum lesion of left shoulder, subsequent encounter S43.432D [place] [address] 36046- 0954 Jun, History of DVT (deep vein thrombosis) Z86.718 [place] [address] 23122- 5447 Jun, History of DVT (deep vein thrombosis) Z86.718 [facility] [id number] [place] [address] 22524- 7926 Jun, Impingement syndrome, shoulder, left M75.42 [facility] [id number] [place] [address] 08520- 9467 May, Subacromial bursitis of left shoulder joint M75.52 [facility] [facility] [id number] [place] [address] 27064- 2844 May, [place] [address] 59222- 2420 May, Hypertriglyceridemia E78.1 ; 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 and Excessive daytime sleepiness G47.19 [facility] [id number] [place] [address] 62527- 9867 May, History of DVT (deep vein thrombosis) Z86.718 ; Generalized anxiety disorder F41.1 ; Hypertriglyceridemia E78.1 ; 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 ; Subacromial bursitis of left shoulder joint M75.52 and Excessive daytime sleepiness G47.19 [place] [id number] [place] [address] 41558 2546 May, [place] [address] 38643 2546 May, alf (current) use of anticoagulants Z79.01 [facility] [facility] [id number] [place] [address] 36464 2546 23 Apr, 2017 alf (current) use of anticoagulants Z79.01 [place] [address] 97768 2546 Apr, alf (current) use of anticoagulants Z79.01 [place] [address] 07835 2546 20 Apr, 2017 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 [place] [address] 69559 2546 16 Apr, 2017 [place] [address] 50957 2546 16 Apr, 2017 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 [place] [id number] [place] [address] 00570 2546 13 Apr, 2017 alf (current) use of anticoagulants Z79.01 [place] [facility] [id number] [place] [address] 10447 2546 Apr, alf (current) use of anticoagulants Z79.01 [place] [id number] [place] [address] 90557 2546 Apr, 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 [place] [id number] [place] [address] 37776 2546 07 Apr, 2017 alf (current) use of anticoagulants Z79.01 [place] [facility] [id number] [place] [address] 77711- 8293 Apr, alf (current) use of anticoagulants Z79.01 [facility] [address] [place] [address] 73896- 1577 Mar, 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 [facility] [id number] [place] [address] 00962- 9266 Mar, [facility] [address] 30971- 6542 Mar, 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 [facility] [id number] [place] [address] [id number] Jan, Dental examination Z01.20 [facility] [address] [id number] Jan, [facility] [address] 90127- 5792 Jan, alf (current) use of anticoagulants Z79.01 [facility] [id number] [place] [address] 96739- 0817 Jan, History of DVT (deep vein thrombosis) Z86.718 [facility] [facility] [id number] [place] [address] 78355- 1866 Jan, Generalized anxiety disorder F41.1 and Peripheral edema R60.9 [facility] [id number] [place] [address] 00735- 3697 Nov, History of DVT (deep vein thrombosis) Z86.718 [facility] [id number] [place] [address] 31402- 6836 Nov, alf (current) use of anticoagulants Z79.01 [facility] [id number] [place] [address] 14983 -8879 Nov, Acute non-recurrent maxillary sinusitis J01.00 [facility] [id number] [place] [address] 62536- 8037 Oct, 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 [place] [address] [place] [address] 39022- 7736 Oct, Personal history of venous thrombosis and embolism Z86.718 [facility] [facility] [id number] [place] [address] 06939- 6927 Sep, [place] [address] 93310- 3456 Sep, Personal history of venous thrombosis and embolism Z86.718 [place] [id number] [place] [address] 61263- 3690 Sep, alf (current) use of anticoagulants Z79.01 [facility] [facility] [id number] [place] [address] 45659- 5397 Sep, 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 [place] [id number] [place] [address] 44860- 2270 Sep, Generalized anxiety disorder F41.1 and History of DVT (deep vein thrombosis) Z86.718 [place] [facility] [id number] [place] [address] 05347- 1295 Aug, History of DVT (deep vein thrombosis) Z86.718 ; Generalized anxiety disorder F41.1 ; alf (current) use of anticoagulants Z79.01 ; Pelvic pain R10.2 ; Hypertriglyceridemia E78.1 ; Excessive daytime sleepiness G47.19 ; Colon cancer screening Z12.11 ; Screening for breast cancer Z12.39 ; Peripheral edema R60.9 and Gastroesophageal reflux disease, esophagitis presence not specified K21.9 [place] [facility] [id number] [place] [address] 87284- 5298 Aug, [place] [facility] [id number] [place] [address] 83537- 5195 July, [place] [facility] [id number] [place] [address] 71856- 9731 July, History of DVT (deep vein thrombosis) Z86.718 [place] [id number] [place] [address] 19288- 9148 Jun, Generalized anxiety disorder F41.1 [place] [id number] [place] [address] 87092- 4033 Jun, History of DVT (deep vein thrombosis) Z86.718 [place] [address] 03233- 6225 Jun, History of DVT (deep vein thrombosis) Z86.718 [facility] [facility] [id number] [place] [address] 68792- 7209 Jun, History of DVT (deep vein thrombosis) Z86.718 [facility] [facility] [id number] [place] [address] 73607- 2838 Jun, History of DVT (deep vein thrombosis) Z86.718 [facility] [facility] [id number] [place] [address] 99155- 2639 May, History of DVT (deep vein thrombosis) Z86.718 [place] [facility] [id number] [place] [address] 43289- 3436 May, 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 [place] [id number] [place] [address] 47777- 2474 May, 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 [place] [id number] [place] [address] 31326- 6097 May, History of DVT (deep vein thrombosis) Z86.718 [facility] [address] 67009 -4098 Apr, Bacterial conjunctivitis of left eye H10.9 and H/O motion sickness Z87.898 [place] [id number] [place] [address] 04819- 6324 Apr, History of DVT (deep vein thrombosis) Z86.718 [facility] [address] [address] 2546 23 Apr, 2016 History of DVT (deep vein thrombosis) Z86.718 [facility] [address] [place] [address] 45597 2546 15 Apr, 2016 History of DVT (deep vein thrombosis) Z86.718 [facility] [id number] [place] [address] 72078 2546 14 Apr, 2016 alf (current) use of anticoagulants Z79.01 [place] [id number] [place] [address] 57600 2546 Mar, [place] [id number] [place] [address] 56926 2546 Mar, alf (current) use of anticoagulants Z79.01 [place] [id number] [place] [address] 60029 2546 Mar, alf (current) use of anticoagulants Z79.01 and Hypertriglyceridemia E78.1 [place] [id number] [place] [address] 80112 2546 Feb, 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 [place] [id number] [place] [address] 40528 2546 Feb, alf (current) use of anticoagulants Z79.01 [place] [id number] [place] [address] 10743 2546 Feb, 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 [place] [id number] [place] [address] 43449 2546 Dec, [place] [id number] [place] [address] 21729 2546 Nov, [place] [facility] [id number] [place] [address] 62070670- 6152 Nov, History of DVT (deep vein thrombosis) Z86.718 ; Tremulousness R25.1 ; Generalized anxiety disorder F41.1 ; Peripheral edema R60.9 and Hypertriglyceridemia E78.1 [address] [address] 21809- 0983 Oct, History of DVT (deep vein thrombosis) Z86.718 [address] [address] 40941- 5182 Oct, [place] [address] 36237- 3892 Sep, History of DVT (deep vein thrombosis) Z86.718 [address] [address] 75267- 0781 Sep, alf (current) use of anticoagulants Z79.01 [place] [address] 89376- 7836 July, [place] [address] 79120- 1297 July, alf (current) use of anticoagulants Z79.01 [address] [address] 02235- 4610 July, 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 [address] [address] 57490- 1806 Jun, 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 [facility] [address] 73587 -2134 Jun, Coccyx pain M53.3 ; Encounter for therapeutic drug level monitoring Z51.81 and alf current use 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.01 [address] [address] 24719- 9730 May, Abnormal mammogram R92.8 [facility] [address] 29727 -5890 May, [facility] [address] [place] [address] 68049 -4191 May, Acute vaginitis N76.0 and Encounter for other screening for malignant neoplasm of breast Z12.39 [facility] [id number] [place] [address] 18141- 3746 Apr, [facility] [address] 63474- 2768 Apr, [facility] [id number] [place] [address] 37714- 6901 Apr, Peripheral edema R60.9 [facility] [id number] [place] [address] 36156- 0635 Apr, 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 [place] [id number] [place] [address] 60247- 1645 Apr, Peripheral edema R60.9 and 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 [place] [id number] [place] [address] 36197- 2218 Apr, 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 [facility] [id number] [place] [address] 39400- 2855 Apr, [facility] [id number] [place] [address] 17032- 2429 Apr, 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 [place] [id number] [place] [address] 01836- 8609 Mar, alf (current) use of anticoagulants Z79.01 [place] [id number] [place] [address] 00902- 3076 Mar, [place] [id number] [place] [address] 50617- 6688 Mar, alf (current) use of anticoagulants Z79.01 ; Hypertriglyceridemia E78.1 ; Personal history of venous thrombosis and embolism Z86.718 and Lump R22.9 [place] [id number] [place] [address] 28114- 5952 Mar, Personal history of venous thrombosis and embolism Z86.718 [place] [id number] [place] [address] 96522- 5664 Mar, Personal history of venous thrombosis and embolism Z86.718 [place] [id number] [place] [address] 16035- 6697 Mar, [place] [id number] [place] [address] 91343- 5784 Dec, Personal history of venous thrombosis and embolism Z86.718 [place] [id number] [place] [address] 83439- 5179 Dec, Personal history of venous thrombosis and embolism V12.51 [place] [id number] [place] [address] 80544- 4105 Nov, Personal history of venous thrombosis and embolism V12.51 [place] [id number] [place] [address] 50991- 5242 Nov, Personal history of venous thrombosis and embolism V12.51 [facility] [id number] [address]- 0728 17 Nov, 2014 Personal history of venous thrombosis and embolism V12.51 [facility] [address] [facility] [id number], [place] [address]- 4469 Nov, Personal history of venous thrombosis and embolism V12.51 [facility] [address] [address]- 3553 Nov, [facility] [id number] [address]- 6616 Oct, Dysuria 788.1 [facility] [id number] [place] [address] 35164- 6835 Oct, Personal history of venous thrombosis and embolism V12.51 [facility] [address] [address]- 6695 Oct, [facility] [address] [address]- 9438 Oct, Personal history of venous thrombosis and embolism V12.51 [facility] [address] [address]- 4612 Sep, Personal history of venous thrombosis and embolism V12.51 [facility] [address] [address]- 0646 Sep, Personal history of venous thrombosis and embolism V12.51 [facility] [id number] [address]- 6648 Aug, Personal history of venous thrombosis and embolism V12.51 [facility] [id number] [address]- 5329 Aug, Personal history of venous thrombosis and embolism V12.51 [facility] [id number] [address]- 4789 Aug, Personal history of venous thrombosis and embolism V12.51 [facility] [address] [facility] [id number], [place] [address]- 9719 July, Generalized anxiety disorder 300.02 ; Abdominal pain, left lower quadrant 789.04 and Personal history of venous thrombosis and embolism V12.51 [facility] [address] [facility] [id number] [place] [address]- 2557 14 Jun, 2014 [facility] [address] [facility] [id number] [place] [address]- 0101 Jun, [facility] [address] [facility] [id number] [place] [address]- 1399 May, [facility] [address] [address]- 0504 May, [facility] [address] 3873 May, [facility] [address] [place] [address]- 1400 May, [facility] [id number] [place] [address]- 6654 May, [facility] [address] [place] [address]- 2906 May, [facility] [address] [address]- 2936 May, [facility] [address]- 3593 May, [facility] [id number] [address]- 9220 Apr, [facility] [address] [address]- 2924 Apr, [facility] [address] [facility] [id number] Apr, [facility] [address], [place] [address]- 3306 Apr, [facility] [address] [id number] [place] [address]- 2446 Apr, [facility] [place] [facility] [address] [id number] [place] [address]- 4324 Mar, [facility] [place] [facility] [address] [id number] [place] [address]- 4463 Mar, [facility] [place] [facility] [address] [id number] [place] [address]- 9993 Mar, [facility] [place] [facility] [address] [id number] [place] [address]- 6366 Mar, [facility] [place] [facility] [address] [id number] [place] [address]- 8275 Mar, [facility] [place] [facility] [address] [id number] [place] [address]- 4330 Mar, [facility] [place] [facility] [address] [id number] [place] [address]- 9152 Feb, [facility] [place] [facility] [address] [id number] [place] [address]- 7400 Feb, [facility] [place] [facility] [address] [id number] [place] [address]- 6358 Feb, [facility] [place] [facility] [address] [id number] [place] [address]- 7352 Feb, [facility] [place] [facility] [address] [id number] [place] [address]- 7129 Feb, [facility] [place] [facility] [address] [id number] [place] 6387 Feb, [facility] [place] [facility] [address] [id number] [place] [address]- 4191 Feb, [facility] [place] [facility] [address] [id number] [place] [address]- 4026 Feb, [facility] [place] [facility] [address] [id number] [place] [address]- 4627 Feb, [facility] [place] [facility] [address] [id number] [place] [address]- 2843 Feb, [facility] [place] [facility] [address] [id number] [place] [address]- 8754 Jan, [facility] [place] [facility] [address] [id number] [place] [address]- 6876 Jan, [facility] [place] [facility] [address] [id number] [place] [address]- 6908 Jan, [facility] [place] [facility] [address] [id number] [place] [address]- 4050 Jan, [facility] [place] [facility] [address] [id number] [place] [address]- 3870 Jan, [facility] [place] [facility] [address] [id number] [place] [address]- 7289 Jan, [facility] [place] [facility] [address] [id number] [place] [address]- 4243 Jan, [facility] [place] [facility] [address] [id number] [place] [address]- 0270 Jan, [facility] [place] [facility] [address] [id number] [place] [address]- 7911 Jan, [facility] [place] [facility] [address] [id number] [place] [address]- 9777 Jan, [facility] [place] [facility] [address] [id number] [place] [address]- 5018 Dec, [facility] [place] [facility] [address] [id number] [place] [address]- 6049 Dec, [facility] [place] [facility] [address] [id number] [place] [address]- 1775 Dec, [facility] [place] [facility] [address] [id number] [place] [address]- 2678 Dec, [facility] [place] [facility] [address] [id number] [place] [address]- 0629 Dec, [facility] [place] [facility] [address] [id number] [place] [address] Dec, [facility] [place] [facility] [address] [id number] [place] [address] Dec, [facility] [place] [facility] [address] [id number] [place] [address] Dec, [facility] [place] [facility] [address] [id number] [place] [address] Dec, [facility] [place] [facility] [address] [id number] [place] [address] Dec, [facility] [place] [facility] [address] [id number] [place] [address] Dec, [facility] [place] [facility] [address] [id number] [place] [address] Dec, [facility] [place] [facility] [address] [id number] [place] [address] Dec, [facility] [place] [facility] [address] [id number] [place] [address] Dec, [facility] [place] [facility] [address] [id number] [place] [address] Dec, [facility] [place] [facility] [address] [id number], [place] [address] Nov, [facility] [place] [facility] [address] [id number] [place] [address] Nov, [facility] [place] [facility] [address] [id number] [place] [address] Nov, [facility] [place] [facility] [address] [id number] [place] [address] Nov, [facility] [place] [facility] [address] [id number] [place] [address] 24 Sep, 2013 [facility] [place] [facility] [address] [id number] [place] [address] 24 Sep, 2013 [facility] [place] [facility] [address] [id number] [place] [address] 23 Sep, 2013 [facility] [place] [facility] [address] [id number] [place] [address] 23 Sep, 2013 [facility] [place] [facility] [address] [id number] [place] [address] 18 Sep, 2013 [facility] [place] [facility] [address] [id number] [place] [address] 18 Sep, 2013 [facility] [place] [facility] [address] [id number] [place] [address] 17 Nov, 2013 [facility] [place] [facility] [address] [id number] [place] [address] 17 Nov, 2013 [facility] [place] [facility] [address] [id number] [place] [address]- 8078 11 Nov, 2013 [facility] [place] [facility] [address] [id number] [place] [address] 4131 11 Nov, 2013 [facility] [place] [facility] [address] [id number] [place] [address] 1699 10 Nov, 2013 [facility] [place] [facility] [address] [id number] [place] [address] 2547 10 Nov, 2013 [facility] [place] [facility] [address] [id number] [place] [address]- 254 08 Nov, 2013 [facility] [place] [facility] [address] [id number] [place] [address]- 2541 08 Nov, 2013 [facility] [place] [facility] [address] [id number] [place] [address]- 1614 22 Sep, 2013 [facility] [place] [facility] [address] [id number] [place] [address]- 77[address] Sep, 2013 [facility] [place] [facility] [address] [id number] [place] [address]- 0814 Sep, [facility] [place] [facility] [address] [id number] [place] [address]- 1171 Sep, [facility] [place] [facility] [address] [id number] [place] [address]- 2182 Sep, [facility] [place] [facility] [address] [id number] [place] [address]- 2219 Sep, [facility] [place] [facility] [address] [id number] [place] [address] 4[address] Aug, [facility] [place] [facility] [address] [id number] [place] [address]- 3764 Aug, [facility] [place] [facility] [address] [id number] [place] [address]- 4095 Aug, [facility] [place] [facility] [address] [id number] [place] [address]- 6998 Aug, [facility] [place] [facility] [address] [id number] [place] [address]- 7869 Aug, [facility] [place] [facility] [address] [id number] [place] [address]- 0567 Aug, [facility] [place] [facility] [address] [id number] [place] [address]- 5191 Aug, [facility] [place] [facility] [address] [id number] [place] [address]- 5305 Aug, [facility] [place] [facility] [address] [id number] [place] [address]- 7014 Aug, [facility] [place] [facility] [address] [id number] [place] [address]- 8449 Aug, [facility] [place] [facility] [address] [id number] [place] [address]- 8790 Aug, [facility] [place] [facility] [address] [id number] [place] [address]- 3457 July, [facility] [place] [facility] [address] [id number] [place] [address]- 7592 July, [facility] [place] [facility] [address] [id number] [place] [address]- 3612 Jun, [facility] [place] [facility] [address] [id number] [place] [address]- 8547 Jun, [facility] [place] [facility] [address] [id number] [place] [address]- 6009 Jun, [facility] [place] [facility] [address] [id number] [place] [address]- 5648 Jun, [facility] [place] [facility] [address] [id number] [place] [address]- 4481 Jun, [facility] [place] [facility] [address] [id number] [place] [address]- 3273 Jun, [facility] [place] [facility] [address] [id number] [place] [address]- 9289 Jun, [facility] [place] [facility] [address] [id number] [place] [address]- 2928 Jun, [facility] [place] [facility] [address] [id number] [place] [address]- 4991 Jun, [facility] [place] [facility] [address] [id number] [place] [address]- 8812 Jun, [facility] [place] [facility] [address] [id number], [place] [address] Jun, [facility] [place] [facility] [address] [id number] [place] [address]- 0369 Jun, [facility] [place] [facility] [address] [id number] [place] [address]- 3753 May, [facility] [place] [facility] [address] [id number] [place] [address]- 3229 May, [facility] [place] [facility] [address] [id number] [place] [address]- 1105 May, [facility] [place] [facility] [address] [id number] [place] [address]- 9079 May, [facility] [place] [facility] [address] [id number] [place] [address]- 6916 May, [facility] [place] [facility] [address] [id number] [place] [address]- 0476 May, [facility] [place] [facility] [address] [id number] [place] [address]- 7291 May, [facility] [place] [facility] [address] [id number] [place] [address]- 7541 May, [facility] [place] [facility] [address] [id number] [place] [address]- 4823 May, [facility] [place] [facility] [address] [id number] [place] [address]- 2717 May, [facility] [place] [facility] [address] [id number] [place] [address]- 2453 May, [facility] [place] [facility] [address] [id number] [place] [address]- 6742 May, [facility] [place] [facility] [address] [facility] [id number] [place] [address]- 2651 Apr, [facility] [place] [facility] [address] [id number] [place] [address]- 2876 Apr, [facility] [place] [facility] [address] [id number] [place] [address]- 2095 Apr, [facility] [place] [facility] [address] [id number] [place] [address]- 7461 Apr, [facility] [place] [facility] [address] [id number] [place] [address]- 8266 Apr, [facility] [place] [facility] [address] [id number] [place] [address]- 1165 Apr, [facility] [place] [facility] [address] [id number] [place] [address]- 9703 Apr, [facility] [place] [facility] [address] [id number] [place] [address]- 2616 Apr, [facility] [place] [facility] [address] [facility] [id number] [place] [address]- 4675 Apr, [facility] [place] [facility] [address] [id number] [place] [address]- 1366 Apr, [facility] [place] [facility] [address] [id number] [place] [address]- 3418 Apr, [facility] [place] [facility] [address] [facility] [id number] [place] [address]- 3723 Apr, [facility] [place] [facility] [address] [facility] [id number] [place] [address]- 9454 Apr, [facility] [place] [facility] [address] [facility] [id number] [place] [address]- 6855 Apr, [facility] [place] [facility] [address] [facility] [id number] [place] [address]- 8389 Apr, [facility] [place] [facility] [address] [facility] [id number] [place] [address]- 1820 Apr, [facility] [place] [facility] [address] [facility] [id number] [place] [address]- 0530 Apr, [facility] [place] [facility] [address] [facility] [id number], [place] [address]- 5989 Jan, [facility] [place] [facility] [address] [facility] [id number] [place] [address]- 2368 Jan, [facility] [place] [facility] [address] [facility] [id number] [place] [address]- 2356 Jan, [facility] [place] [facility] [address] [facility] [id number], [place] [address]- 9386 Jan, [facility] [place] [facility] [address] [id number] [place] [address]- 9694 Jan, [facility] [place] [facility] [address] [id number] [place] [address]- 4309 Jan, [facility] [place] [facility] [address] [id number] [place] [address]- 5240 Jan, [facility] [place] [facility] [address] [id number] [place] [address]- 3289 Dec, [facility] [place] [facility] [address] [id number] [place] [address]- 8301 Dec, [facility] [place] [facility] [address] [id number] [place] [address]- 9843 Dec, [facility] [place] [facility] [address] [id number] [place] [address]- 5650 Nov, [facility] [place] [facility] [address] [id number] [place] [address]- 8155 Nov, [facility] [place] [facility] [address] [id number] [place] [address]- 0455 05 Nov, 2012 [facility] [place] [facility] [address] [id number] [place] [address]- 6954 Nov, [facility] [place] [facility] [address] [id number] [place] [address]- 3268 Oct, [facility] [place] [facility] [address] [id number] [place] [address]- 7977 Oct, [facility] [place] [facility] [address] [id number] [place] [address]- 8504 Oct, [facility] [place] [facility] [address] [id number] [place] [address]- 4774 Oct, [facility] [place] [facility] [address] [id number] [place] [address]- 2193 Oct, [facility] [place] [facility] [address] [id number] [place] [address]- 1443 Sep, [facility] [place] [facility] [address] [id number] [place] [address]- 1523 Sep, [facility] [place] [facility] [address] [id number] [place] [address]- 8281 Sep, [facility] [place] [facility] [address] [id number] [place] [address]- 2617 Sep, [facility] [place] [facility] [address] [id number] [place] [address]- 0156 Sep, [facility] [place] [facility] [address] [id number] [place] [address]- 1714 Sep, [facility] [place] [facility] [address] [id number] [place] [address]- 0136 Sep, [facility] [place] [facility] [address] [id number] [place] [address]- 0382 Aug, [facility] [place] [facility] [address] [id number] [place] [address]- 2978 Aug, [facility] [place] [facility] [address] [id number] [place] [address]- 5284 July, [facility] [place] [facility] [address] [id number] [place] [address]- 6419 Jun, [facility] [place] [facility] [address] [id number] [place] [address]- 0240 Jun, [facility] [place] [facility] [address] [id number] [place] [address]- 0576 Jun, [facility] [place] [facility] [address] [id number] [place] [address]- 8266 Apr, [facility] [place] [facility] [address] [id number] [place] [address]- 6855 Apr, [facility] [place] [facility] [address] [id number] [place] [address]- 7541 Apr, [facility] [place] [facility] [address] [id number] [place] [address]- 5556 Mar, [facility] [address] [id number] [place] [address]- 3470 Mar, [facility] [place] [facility] [address] [id number] [place] [address]- 5044 2012 [facility] [address] [id number] [place] [address]- 3901 Mar, [facility] [address] [id number] [place] [address]- 2848 Mar, [facility] [address] [id number] [place] [address]- 9819 14 Feb, 2012 [facility] [address] [id number] [place] [address]- 7017 14 Feb, 2012 [facility] [address] [id number] [place] [address]- 8878 Jan, [facility] [address] [id number] [place] [address]- 1254 Jan, [facility] [address] [id number] [place] [address]- 2658 Jan, [facility] [address] [id number] [place] [address]- 7119 13 Jan, 2012 [facility] [place] [facility] [address] [id number] [place] [address]- 1397 Jan, [facility] [address] [id number] [place] [address]- 4568 Jan, [facility] [place] [facility] [address] [id number] [place] [address]- 7562 Jan, [facility] [place] [facility] [address] [id number] [place] [address]- 3829 Dec, [facility] [place] [facility] [address] [id number] [place] [address]- 0398 Dec, [facility] [place] [facility] [address] [id number] [place] [address]45 Dec, [facility] [place] [facility] [address] [id number] [place] [address]- 2071 Dec, [facility] [place] [facility] [address] [id number] [place] [address]75 Dec, [facility] [place] [facility] [address] [id number] [place] [address]- 6182 Dec, [facility] [place] [facility] [address] [id number] [place] [address]287 Dec, [facility] [place] [facility] [address] [id number] [place] [address]- 4104 Dec, [facility] [place] [facility] [address] [id number] [place] [address]- 5659 Dec, [facility] [place] [facility] [address] [id number] [place] [address]- 2782 Dec, [facility] [place] [facility] [address] [id number] [place] [address]- 2908 Oct, [facility] [place] [facility] [address] [id number] [place] [address]- 2730 Oct, [facility] [place] [facility] [address] [id number] [place] [address]- 3085 Aug, [facility] [place] [facility] [address] [id number], [place] [address]- 2413 Aug, [facility] [place] [facility] [address] [id number] [place] [address]- 8265 July, [facility] [place] [facility] [address] [id number] [place] [address]- 8548 Jun, [facility] [place] [facility] [address] [id number] [place] [address]- 6344 Jun, [facility] [place] [facility] [address] [id number] [place] [address]- 6946 May, [facility] [address] [id number] [place] [address]- 5126 Apr, [facility] [place] [facility] [address] [id number] [place] [address]- 6806 16 Apr, 2011 [facility] [address] [id number] [place] [address]- 4056 Mar, [facility] [place] [facility] [address] [id number] [place] [address]- 4871 Mar, [facility] [address] [id number] [place] [address]- 2042 Feb, [facility] [place] [facility] [address] [id number] [place] [address]- 1916 15 Feb, 2011 [facility] [address] [id number] [place] [address]- 7317 Feb, [facility] [address] [id number] [place] [address]- 6061 13 Feb, 2011 [facility] [address] [id number] [place] [address]- 9300 Jan, [facility] [address] [id number] [place] [address]- 9439 17 Dec, 2010 [facility] [address] [id number] [place] [address]- 7019 08 Feb, 2010 [facility] [place] [facility] [address] [id number], [place] [address]- 1712 Feb, [facility] [place] [facility] [address] [id number] [place] [address]- 9635 Feb, [facility] [place] [facility] [address] [id number] [place] [address]- 1747 Feb, [facility] [place] [facility] [address] [id number], [place] [address]- 3204 15 Dec, 2009 [facility] [address] [id number], [place] [address]- 5045 Dec, [facility] [address] [id number], [place] [address]- 4210 Oct, [facility] [address] [facility] [id number], [place] [address]- 1310 Jun, [facility] [address] [id number], [place] [address]- 0113 Feb, [facility] [address] [id number], [place] [address]- 5202 Feb, [facility] [address] [id number], [place] [address]- 9192 Feb, [facility] [address] [id number], [place] [address]- 2155 Dec, IMMUNIZATIONS No Known Immunizations SOCIAL HISTORY Never Assessed REASON FOR VISIT 6 wk f/u. Consult Liborio Mckinney;Ubaldo RT(R) PLAN OF CARE Activity Details Follow Up prn Reason: VITAL SIGNS Height 64 in 2017-08-27 Blood pressure systolic 114 mmHg 2017-08-27 Blood pressure diastolic 76 mmHg 2017-08-27 MEDICATIONS Unknown Medications RESULTS Name Result Date Reference Range MRI : Shoulder, Left 2017-09-08 PROCEDURES No Known procedures INSTRUCTIONS MEDICATIONS ADMINISTERED [...]
--- OUTSIDE RECORDS SUMMARY | 2018-08-02 08:54 | XMS REPORT ---
Author Author KIANA ASHLEY [facility] Address [address] [place] [address] Care Team Providers Care Burrito Maker Name Role Phone KIANAGILSON VILLEGASHANY Unavailable PROBLEMS Type Condition ICD9-CM Code JAR28-JR Code Onset Dates Condition Status SNOMED Code Problem Generalized anxiety disorder F41.1 Active 289943609 Problem 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 Active 678040407 Problem History of DVT (deep vein thrombosis) Z86.718 Active 615700370 Problem Factor V Leiden D68.51 Active 194956923 Problem Hypertriglyceridemia E78.1 Active 430083279 Problem halfway (current) use of anticoagulants Z79.01 Active 626971921 Problem Thyroid nodule E04.1 Active 954649881 Problem Excessive daytime sleepiness G47.19 Active 990885766385 Problem Peripheral edema R60.9 Active 409287196 Problem Pelvic pain R10.2 Active 00743752 Problem Gastroesophageal reflux disease, esophagitis presence not specified K21.9 Active 973182582 Problem Presence of IVC filter Z95.828 Active 772112133 ALLERGIES No Information ENCOUNTERS Encounter Location Date Diagnosis [facility] [address] [id number] Nov, [facility] [id number] [place] [address] 32132- 1684 Oct, [facility] [id number] [place] [address] 63554- 3206 Sep, [facility] [id number] [place] [address] 49668- 6568 Aug, [facility] [id number] [place] [address] [id number]- 3273 Aug, [facility] [address] 30416- 2130 Aug, Acute pain of left shoulder M25.512 and Thyroid nodule E04.1 [facility] [id number] [place] [address] 83988- 5666 July, Superior glenoid labrum lesion of left shoulder, subsequent encounter S43.432D [facility] [id number] [place] [address] 89063- 1435 Jun, History of DVT (deep vein thrombosis) Z86.718 [facility] [id number] [place] [address] 59970- 4265 Jun, History of DVT (deep vein thrombosis) Z86.718 [facility] [id number] [place] [address] 32211- 4103 Jun, Impingement syndrome, shoulder, left M75.42 [facility] [id number] [place] [address] 08026- 4934 May, Subacromial bursitis of left shoulder joint M75.52 [facility] [id number] [place] [address] 82382- 3627 May, [facility] [id number] [place] [address] 57412- 4816 May, Hypertriglyceridemia E78.1 ; halfway (current) use of anticoagulants Z79.01 and Excessive daytime sleepiness G47.19 [facility] [id number] [place] [address] 05092- 5562 May, History of DVT (deep vein thrombosis) Z86.718 ; Generalized anxiety disorder F41.1 ; Hypertriglyceridemia E78.1 ; 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 ; Subacromial bursitis of left shoulder joint M75.52 and Excessive daytime sleepiness G47.19 [place] [address] [place] [address] 44625- 3097 May, [facility] [id number] [place] [address] 27108- 3152 May, halfway (current) use of anticoagulants Z79.01 [facility] [address] [address] 2546 Apr, 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 [facility] [address] [place] [address] 82087 2546 Apr, 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 [facility] [address] [place] [address] 90734 2546 Apr, 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 [facility] [id number] [place] [address] 54842 2546 16 Apr, 2017 [facility] [id number] [place] [address] 82386 2546 16 Apr, 2017 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 [place] [address] [place] [address] 65477 2546 13 Apr, 2017 halfway (current) use of anticoagulants Z79.01 [place] [place] [address] [place] [address] 54270 2546 Apr, 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 [place] [address] [place] [address] 07727 2546 Apr, halfway (current) use of anticoagulants Z79.01 [facility] [address] [address] 2546 07 Apr, 2017 halfway (current) use of anticoagulants Z79.01 [place] [address] [place] [address] 72386 2546 06 Apr, 2017 halfway (current) use of anticoagulants Z79.01 [place] [address] [address] 2546 Mar, 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 [facility] [id number] [place] [address] 80415- 2862 Mar, [facility] [address] 38678- 6139 Mar, halfway (current) use of anticoagulants Z79.01 [facility] [id number] [place] [address] [id number] Jan, Dental examination Z01.20 [facility] [address] [id number] Jan, [facility] [address] 28682- 1193 Jan, 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 [facility] [address] 47328- 6586 Jan, History of DVT (deep vein thrombosis) Z86.718 [place] [address] 37826- 6260 Jan, Generalized anxiety disorder F41.1 and Peripheral edema R60.9 [facility] [address] 22023- 4001 Nov, History of DVT (deep vein thrombosis) Z86.718 [facility] [id number] [place] [address] 82404- 7475 Nov, halfway (current) use of anticoagulants Z79.01 [facility] [id number] [place] [address] 44887 -7177 Nov, Acute non-recurrent maxillary sinusitis J01.00 [facility] [id number] [place] [address] 32323- 5242 Oct, 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 [facility] [id number] [place] [address] 50954- 6021 Oct, Personal history of venous thrombosis and embolism Z86.718 [facility] [address] [address]- 4550 Sep, [facility] [id number] [place] [address] 10891- 2671 Sep, Personal history of venous thrombosis and embolism Z86.718 [facility] [place] [address] [address]- 7414 Sep, 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 [facility] [id number] [place] [address] 80513- 2548 Sep, halfway (current) use of anticoagulants Z79.01 [facility] [id number] [place] [address] 78937- 0674 Sep, Generalized anxiety disorder F41.1 and History of DVT (deep vein thrombosis) Z86.718 [facility] [place] [address] [place] [address] 27271- 2153 Aug, History of DVT (deep vein thrombosis) Z86.718 ; Generalized anxiety disorder F41.1 ; 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 ; Pelvic pain R10.2 ; Hypertriglyceridemia E78.1 ; Excessive daytime sleepiness G47.19 ; Colon cancer screening Z12.11 ; Screening for breast cancer Z12.39 ; Peripheral edema R60.9 and Gastroesophageal reflux disease, esophagitis presence not specified K21.9 [facility] [address] [address]- 4965 Aug, [facility] [address] [place] [address] 59643- 1265 July, [place] [id number] [place] [address] 43022- 4124 July, History of DVT (deep vein thrombosis) Z86.718 [facility] [address] [address]- 9736 Jun, Generalized anxiety disorder F41.1 [facility] [id number] [place] [address] 17249- 9596 Jun, History of DVT (deep vein thrombosis) Z86.718 [place] [facility] [id number] [place] [address] 35517- 5231 Jun, History of DVT (deep vein thrombosis) Z86.718 [facility] [id number] [place] [address] 41442- 4681 Jun, History of DVT (deep vein thrombosis) Z86.718 [facility] [id number] [place] [address] 30542- 9684 Jun, History of DVT (deep vein thrombosis) Z86.718 [facility] [id number] [place] [address] 15608- 8528 May, History of DVT (deep vein thrombosis) Z86.718 [facility] [id number] [place] [address] 45103- 9739 May, 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 [facility] [id number] [place] [address] 06102- 4713 May, 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 [facility] [id number] [place] [address] 90356- 2529 May, History of DVT (deep vein thrombosis) Z86.718 [facility] [id number] [place] [address] 66847 -5742 Apr, Bacterial conjunctivitis of left eye H10.9 and H/O motion sickness Z87.898 [facility] [id number] [place] [address] 93037- 9284 Apr, History of DVT (deep vein thrombosis) Z86.718 [facility] [id number] [place] [address] 22953- 6225 Apr, History of DVT (deep vein thrombosis) Z86.718 [facility] [id number] [place] [address] 76418- 4832 15 Apr, 2016 History of DVT (deep vein thrombosis) Z86.718 [facility] [id number] [place] [address] 20239- 9783 14 Apr, 2016 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 [facility] [id number] [place] [address] 50317- 9896 Mar, [facility] [id number] [place] [address] 96904- 6653 Mar, halfway (current) use of anticoagulants Z79.01 [place] [address] 91506- 8815 Mar, Hypertriglyceridemia E78.1 and 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 [facility] [id number] [place] [address] 72929- 8440 Feb, 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 [facility] [place] [id number] [place] [address] 26476- 5214 Feb, 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 [facility] [place] [id number] [place] [address] 77581- 4569 Feb, 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 [facility] [id number] [place] [address] 01273- 5496 Dec, [facility] [id number] [place] [address] 22546- 2546 Nov, [facility] [address] 16170- 3020 13 Nov, 2015 History of DVT (deep vein thrombosis) Z86.718 ; Tremulousness R25.1 ; Generalized anxiety disorder F41.1 ; Peripheral edema R60.9 and Hypertriglyceridemia E78.1 [facility] [id number] [place] [address] 63988- 3010 Oct, History of DVT (deep vein thrombosis) Z86.718 [place] [id number] [place] [address] 26270- 2732 Oct, [place] [id number] [place] [address] 02042- 2855 Sep, History of DVT (deep vein thrombosis) Z86.718 [facility] [id number] [place] [address] 95182- 4651 Sep, 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 [id number] [place] [address] 73445 -5034 Jun, Coccyx pain M53.3 ; Encounter for therapeutic drug level monitoring Z51.81 and intermediate accountant current use 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.01 [facility] [id number] [place] [address] 57001- 1928 May, Abnormal mammogram R92.8 [facility] [address] 17020 -3680 May, [facility] [id number] [place] [address] 31720 -3975 May, Acute vaginitis N76.0 and Encounter for other screening for malignant neoplasm of breast Z12.39 [facility] [id number] [place] [address] 90566- 4618 Apr, [facility] [address] 89860 2546 Apr, [facility] [id number] [place] [address] 45215 2546 Apr, Peripheral edema R60.9 [place] [address] 54089 2546 Apr, halfway (current) use of anticoagulants Z79.01 [facility] [place] [id number] [place] [address] 65397 2546 Apr, Peripheral edema R60.9 and halfway (current) use of anticoagulants Z79.01 [facility] [place] [id number] [place] [address] 26476- 5766 Apr, halfway (current) use of anticoagulants Z79.01 [facility] [id number] [place] [address] 18515 2546 Apr, [facility] [id number] [place] [address] 80420 2546 Apr, 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 [facility] [id number] [place] [address] 62155 2546 Apr, Peripheral edema R60.9 [facility] [place] [id number] [place] [address] 76632 2546 Mar, halfway (current) use of anticoagulants Z79.01 [facility] [id number] [place] [address] 91212 2546 Mar, halfway (current) use of anticoagulants Z79.01 and Hypertriglyceridemia E78.1 [place] [id number] [place] [address] 88680 2546 Mar, halfway (current) use of anticoagulants Z79.01 [facility] [address] [address]- 3884 Mar, 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 [facility] [address] [address]- 8232 Mar, [facility] [address] [place] [address] 01090- 7595 Mar, 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 ; Hypertriglyceridemia E78.1 ; Personal history of venous thrombosis and embolism Z86.718 and Lump R22.9 [place] [id number] [place] [address] 91670- 4023 Mar, Personal history of venous thrombosis and embolism Z86.718 [place] [id number] [place] [address] 34727- 9172 Mar, Personal history of venous thrombosis and embolism Z86.718 [place] [address] [place] [address] 60694- 5185 Mar, [place] [id number] [place] [address] 32675- 8011 Dec, Personal history of venous thrombosis and embolism Z86.718 [place] [address] [address]- 9024 Dec, Personal history of venous thrombosis and embolism V12.51 [place] [address] [place] [address] 09936- 7091 28 Nov, 2014 Personal history of venous thrombosis and embolism V12.51 [place] [address] [place] [address] 19941- 6050 25 Nov, 2014 Personal history of venous thrombosis and embolism V12.51 [place] [address] [place] [address] 37518- 8583 17 Nov, 2014 Personal history of venous thrombosis and embolism V12.51 [place] [address] [address]- 6640 Nov, Personal history of venous thrombosis and embolism V12.51 [facility] [address] [address]- 8435 Nov, [facility] [address] [address]- 4060 Oct, Dysuria 788.1 [facility] [address] [place] [address] 33029- 9162 Oct, Personal history of venous thrombosis and embolism V12.51 [facility] [address] [address]- 7274 Oct, [facility] [address] [address]- 7805 Oct, Personal history of venous thrombosis and embolism V12.51 [facility] [address] [address]- 5916 Sep, Personal history of venous thrombosis and embolism V12.51 [facility] [address] [address]- 8698 Sep, Personal history of venous thrombosis and embolism V12.51 [facility] [address] [address]- 2905 Aug, Personal history of venous thrombosis and embolism V12.51 [facility] [address] [address]- 4898 Aug, Personal history of venous thrombosis and embolism V12.51 [facility] [id number] [address]- 6571 Aug, Personal history of venous thrombosis and embolism V12.51 [facility] [id number] [address]- 1187 July, Generalized anxiety disorder 300.02 ; Abdominal pain, left lower quadrant 789.04 and Personal history of venous thrombosis and embolism V12.51 [facility] [place] [facility] [address] [id number] [place] [address]- 7059 14 Jun, 2014 [facility] [place] [facility] [address] [id number] [place] [address]- 9994 13 Jun, 2014 [facility] [place] [facility] [address] [id number] [place] [address]- 2222 May, [facility] [place] [facility] [address] [id number] [place] [address]- 2806 May, [facility] [place] [facility] [address] [id number] [place] [address]- 3269 May, [facility] [place] [facility] [address] [id number] [place] [address]- 6939 May, [facility] [place] [facility] [address] [id number] [place] [address]- 7509 May, [facility] [place] [facility] [address] [id number] [place] [address]- 4013 May, [facility] [place] [facility] [address] [id number] [place] [address]- 0399 May, [facility] [place] [facility] [address] [id number] [place] [address]- 9744 May, [facility] [place] [facility] [address] [id number] [place] [address]- 9803 Apr, [facility] [place] [facility] [address] [id number] [place] [address]- 6570 Apr, [facility] [place] [facility] [address] [id number] [place] [address]- 9073 Apr, [facility] [place] [facility] [address] [id number] [place] [address]- 0075 Apr, [facility] [place] [facility] [address] [id number] [place] [address]- 2909 Apr, [facility] [place] [facility] [address] [id number] [place] [address]- 2992 Mar, [facility] [place] [facility] [address] [id number] [place] [address]- 2330 Mar, [facility] [place] [facility] [address] [id number] [place] [address]- 4801 Mar, [facility] [place] [facility] [address] [id number] [place] [address]- 3042 Mar, [facility] [place] [facility] [address] [id number] [place] [address]- 5828 Mar, [facility] [place] [facility] [address] [id number] [place] [address]- 8258 Mar, [facility] [place] [facility] [address] [id number] [place] [address]- 2076 Feb, [facility] [place] [facility] [address] [id number] [place] [address]- 5854 Feb, [facility] [place] [facility] [address] [id number] [place] [address]- 9981 Feb, [facility] [place] [facility] [address] [id number] [place] [address]- 0754 Feb, [facility] [place] [facility] [address] [id number] [place] [address]- 3604 Feb, [facility] [place] [facility] [address] [id number] [place] [address]- 4246 Feb, [facility] [place] [facility] [address] [id number] [place] [address]- 1222 Feb, [facility] [place] [facility] [address] [id number] [place] [address]- 0091 Feb, [facility] [place] [facility] [address] [id number] [place] 5518 Feb, [facility] [place] [facility] [address] [id number] [place] 9382 Feb, [facility] [place] [facility] [address] [id number] [place] [address]- 4487 Jan, [facility] [place] [facility] [address] [id number] [place] [address]- 8645 Jan, [facility] [place] [facility] [address] [id number] [place] [address]- 1368 Jan, [facility] [place] [facility] [address] [id number] [place] [address]- 3137 Jan, [facility] [place] [facility] [address] [id number] [place] [address]- 3235 Jan, [facility] [place] [facility] [address] [id number] [place] [address]- 4895 Jan, [facility] [place] [facility] [address] [id number] [place] [address] Jan, [facility] [place] [facility] [address] [id number] [place] [address] Jan, [facility] [place] [facility] [address] [id number] [place] [address] Jan, [facility] [place] [facility] [address] [id number] [place] [address] Jan, [facility] [place] [facility] [address] [id number] [place] [address] Dec, [facility] [place] [facility] [address] [id number] [place] [address] Dec, [facility] [place] [facility] [address] [id number] [place] [address] Dec, [facility] [place] [facility] [address] [id number] [place] [address] Dec, [facility] [place] [facility] [address] [id number] [place] [address] Dec, [facility] [place] [facility] [address] [id number] [place] [address] Dec, [facility] [place] [facility] [address] [id number] [place] [address] Dec, [facility] [place] [facility] [address] [id number] [place] [address] Dec, [facility] [place] [facility] [address] [id number] [place] [address] Dec, [facility] [place] [facility] [address] [id number] [place] [address] Dec, [facility] [place] [facility] [address] [id number] [place] [address] Dec, [facility] [place] [facility] [address] [id number] [place] [address] Dec, [facility] [place] [facility] [address] [id number] [place] [address] Dec, [facility] [place] [facility] [address] [id number] [place] [address] Dec, [facility] [place] [facility] [address] [id number] [place] [address] Dec, [facility] [place] [facility] [address] [id number] [place] [address] 30 Nov, 2013 [facility] [place] [facility] [address] [id number] [place] [address] 30 Nov, 2013 [facility] [place] [facility] [address] [id number] [place] [address] 26 Nov, 2013 [facility] [place] [facility] [address] [id number] [place] [address] Nov, [facility] [place] [facility] [address] [id number] [place] [address] 24 Nov, 2013 [facility] [facility] [address] [id number] [place] [address] 24 Nov, 2013 [facility] [place] [facility] [address] [id number] [place] [address] 136[address] 23 Sep, 2013 [facility] [place] [facility] [address] [id number] [place] [address] 23 Sep, 2013 [facility] [place] [facility] [address] [id number] [place] [address]- 7326 18 Nov, 2013 [facility] [place] [facility] [address] [id number] [place] [address] 6[address] 18 Nov, 2013 [facility] [place] [facility] [address] [id number] [place] [address]- 6126 17 Nov, 2013 [facility] [place] [facility] [address] [id number] [place] [address]- 0156 17 Nov, 2013 [facility] [place] [facility] [address] [id number] [place] [address]- 6560 11 Nov, 2013 [facility] [place] [facility] [address] [id number] [place] [address]- 9504 11 Nov, 2013 [facility] [place] [facility] [address] [id number] [place] [address] 0703 10 Nov, 2013 [facility] [place] [facility] [address] [id number] [place] [address] 5823 10 Nov, 2013 [facility] [place] [facility] [address] [id number] [place] [address]- 4[address] 08 Nov, 2013 [facility] [place] [facility] [address] [id number] [place] [address]- 0603 08 Nov, 2013 [facility] [place] [facility] [address] [id number] [place] [address]- 7076 Sep, 2013 [facility] [place] [facility] [address] [id number] [place] [address]- 2900 Sep, 2013 [facility] [place] [facility] [address] [id number] [place] [address]- 3067 Sep, 2013 [facility] [place] [facility] [address] [id number] [place] [address]- 2970 Sep, 2013 [facility] [place] [facility] [address] [id number] [place] [address]- 4301 Sep, [facility] [place] [facility] [address] [id number] [place] [address]- 5101 Sep, [facility] [place] [facility] [address] [id number] [place] [address]- 8358 Aug, [facility] [place] [facility] [address] [id number] [place] [address]- 7008 Aug, [facility] [place] [facility] [address] [id number] [place] [address]- 6915 Aug, [facility] [place] [facility] [address] [id number] [place] [address]- 6428 Aug, [facility] [place] [facility] [address] [id number] [place] [address]- 6167 Aug, [facility] [place] [facility] [address] [id number] [place] [address]- 7868 Aug, [facility] [place] [facility] [address] [id number] [place] [address]- 4685 Aug, [facility] [place] [facility] [address] [id number] [place] [address]- 8130 Aug, [facility] [place] [facility] [address] [id number] [place] [address]- 3089 Aug, [facility] [place] [facility] [address] [id number] [place] [address]- 1729 Aug, [facility] [place] [facility] [address] [id number] [place] [address]- 6698 Aug, [facility] [place] [facility] [address] [id number] [place] [address]- 0621 July, [facility] [place] [address] [id number] [place] [address]- 1518 July, [facility] [place] [facility] [address] [id number] [place] [address]- 5560 Jun, [facility] [place] [address] [id number] [place] [address]- 6891 Jun, [facility] [place] [address] [id number] [place] [address]- 7869 Jun, [facility] [place] [facility] [address] [id number] [place] [address]- 5278 Jun, [facility] [place] [facility] [address] [id number] [place] [address]- 9019 Jun, [facility] [place] [address] [id number] [place] [address]- 5358 Jun, [facility] [place] [facility] [address] [id number] [place] [address]- 5784 Jun, [facility] [place] [facility] [address] [id number] [place] [address]- 8859 Jun, [facility] [address] [id number] [place] [address]- 7607 Jun, [facility] [address] [id number] [place] [address]- 0055 Jun, [facility] [place] [address] [id number] [place] [address]- 4323 Jun, [facility] [address] [id number] [place] [address]- 4076 Jun, [facility] [address] [id number] [place] [address] 6879 May, [facility] [address] [id number] [place] [address]- 4984 May, [facility] [address] [id number] [place] [address]- 8116 May, [facility] [address] [id number] [place] [address]- 7174 May, [facility] [address] [id number] [place] [address]- 8912 May, [facility] [address] [id number] [place] [address]- 7003 May, [facility] [address] [id number] [place] [address]- 6194 May, [facility] [address] [id number] [place] [address]- 8996 May, [facility] [address] [id number] [place] [address]- 2149 May, [facility] [address] [id number] [place] [address]- 2164 May, [facility] [address] [id number] [place] [address]- 0256 May, [facility] [address] [id number] [place] [address]- 9331 May, [facility] [address] [id number] [place] [address]- 0754 Apr, [facility] [address] [id number] [place] [address]- 1259 Apr, [facility] [address] [facility] [id number] [place] [address]- 6158 Apr, [facility] [address] [id number] [place] [address]- 2632 Apr, [facility] [address] [id number] [place] [address]- 4944 Apr, [facility] [address] [id number] [place] [address]- 9488 Apr, [facility] [address] [facility] [id number] [place] [address]- 4032 Apr, [facility] [address] [id number] [place] [address]- 9148 Apr, [facility] [address] [id number] [place] [address]- 1862 Apr, [facility] [address] [facility] [id number] [place] [address]- 2056 Apr, [facility] [address] [facility] [id number] [place] [address]- 2456 Apr, [facility] [address] [facility] [id number] [place] [address]- 3984 Apr, [facility] [address] [facility] [id number] [place] [address]- 0217 Apr, [facility] [address] [facility] [id number] [place] [address]- 4737 Apr, [facility] [address] [id number] [place] [address]- 9775 Apr, [facility] [address] [facility] [id number] [place] [address]- 9403 Apr, [facility] [address] [facility] [id number] [place] [address]- 1374 Apr, [facility] [address] [facility] [id number] [place] [address]- 8515 Jan, [facility] [address] [facility] [id number] [place] [address]- 1718 13 Jan, 2013 [facility] [address] [facility] [id number] [place] [address]- 2093 08 Jan, 2013 [facility] [address] [facility] [id number] [place] [address]- 9756 07 Jan, 2013 [facility] [address] [facility] [id number] [place] [address]- 7420 07 Jan, 2013 [facility] [address] [facility] [id number] [place] [address]- 9285 07 Jan, 2013 [facility] [address] [id number] [place] [address]- 5208 Jan, [facility] [address] [id number] [place] [address]- 0413 Dec, [facility] [address] [id number] [place] [address]- 5381 Dec, [facility] [address] [id number] [place] [address]- 2652 Dec, [facility] [address] [id number] [place] [address]- 2114 Nov, [facility] [address] [id number] [place] [address]- 0511 Nov, [facility] [address] [id number] [place] [address]- 3195 Nov, [facility] [address] [id number] [place] [address]- 3496 Nov, [facility] [address] [id number] [place] [address]- 2610 Oct, [facility] [address] [id number] [place] [address]- 8631 Oct, [facility] [address] [id number] [place] [address]- 7618 Oct, [facility] [address] [id number] [place] [address]- 2765 Oct, [facility] [address] [id number] [place] [address]- 7425 Oct, [facility] [address] [id number] [place] [address]- 1110 Sep, [facility] [address] [id number] [place] [address]- 5306 Sep, [facility] [address] [id number] [place] [address]- 5470 Sep, [facility] [address] [id number] [place] [address]- 8824 Sep, [facility] [address] [id number] [place] [address]- 4220 Sep, [facility] [address] [id number] [place] [address]- 5362 Sep, [facility] [address] [id number] [place] [address]- 2918 Sep, [facility] [address] [id number] [place] [address]- 3538 Aug, [facility] [address] [id number] [place] [address]- 5951 Aug, [facility] [address] [id number] [place] [address]- 2248 July, [facility] [address] [id number] [place] [address]- 1640 Jun, [facility] [address] [id number] [place] [address]- 5496 Jun, [facility] [address] [id number] [place] [address]- 9182 Jun, [facility] [address] [id number] [place] [address]- 5266 Apr, [facility] [address] [id number] [place] [address]- 8990 Apr, [facility] [address] [id number] [place] [address]- 5871 Apr, [facility] [address] [id number] [place] [address]- 8799 Mar, [facility] [address] [id number] [place] [address]- 3641 Mar, [facility] [address] [id number] [place] [address]- 9210 2012 [facility] [address] [id number] [place] [address]- 5237 09 Mar, 2012 [facility] [address] [id number] [place] [address]- 9207 07 Mar, 2012 [facility] [address] [id number] [place] [address]- 1621 14 Feb, 2012 [facility] [address] [id number] [place] [address]- 6977 14 Feb, 2012 [facility] [address] [id number] [place] [address]- 1963 13 Jan, 2012 [facility] [address] [id number] [place] [address]- 6358 13 Jan, 2012 [facility] [address] [id number] [place] [address]- 2992 Jan, [facility] [address] [id number] [place] [address]- 7939 13 Jan, 2012 [facility] [address] [id number] [place] [address]- 0786 Jan, [facility] [address] [id number] [place] [address]- 2235 07 Jan, 2012 [facility] [address] [id number] [place] [address]- 5950 Jan, [facility] [address] [id number] [place] [address]- 1195 Dec, [facility] [address] [id number] [place] [address]- 9638 Dec, [facility] [address] [id number] [place] [address]- 4206 Dec, [facility] [address] [id number] [place] [address]- 3478 Dec, [facility] [address] [id number] [place] [address]- 5236 Dec, [facility] [address] [id number] [place] [address]- 6065 Dec, [facility] [address] [id number] [place] [address]- 0606 Dec, [facility] [place] [facility] [address] [id number] [place] [address]- 8450 Dec, [facility] [facility] [address] [id number] [place] [address] Dec, [facility] [place] [facility] [address] [id number] [place] [address]- 8544 Dec, [facility] [place] [facility] [address] [id number] [place] [address]- 3882 Oct, [facility] [place] [facility] [address] [id number] [place] [address]- 1427 Oct, [facility] [place] [address] [id number] [place] [address]- 6311 Aug, [facility] [place] [facility] [address] [id number] [place] [address]- 1378 Aug, [facility] [place] [facility] [address] [id number] [place] [address]- 9049 July, [facility] [place] [facility] [address] [id number] [place] [address]- 5273 Jun, [facility] [place] [facility] [address] [id number] [place] [address]- 1134 Jun, [facility] [place] [facility] [address] [id number] [place] [address]- 7956 May, [facility] [place] [address] [id number] [place] [address]- 7123 Apr, [facility] [place] [facility] [address] [id number] [place] [address]- 7733 16 Apr, 2011 [facility] [address] [id number] [place] [address]- 7606 19 Mar, 2011 [facility] [place] [facility] [address] [id number] [place] [address]- 3736 16 Mar, 2011 [facility] [address] [id number] [place] [address]- 5646 Feb, [facility] [place] [facility] [address] [id number] [place] [address]- 9163 15 Feb, 2011 [facility] [place] [facility] [address] [id number] [place] [address]- 5652 13 Feb, 2011 [facility] [place] [facility] [address] [id number] [place] [address]- 2071 13 Feb, 2011 [facility] [address] [id number] [place] [address]- 3424 Jan, [facility] [place] [facility] [address] [id number] [place] [address]- 2071 17 Dec, 2010 [facility] [place] [facility] [address] [id number] [place] [address]- 8796 Feb, [facility] [place] [facility] [address] [facility] [id number] [place] [address]- 8243 Feb, [facility] [place] [facility] [address] [id number] [place] [address]- 3957 Feb, [facility] [place] [facility] [address] [id number] [place] [address]- 1747 Feb, [facility] [place] [facility] [address] [id number] [place] [address]- 1510 15 Dec, 2009 [facility] [place] [facility] [address] [id number] [place] [address]- 3263 15 Dec, 2009 [facility] [place] [facility] [address] [id number] [place] [address]- 5163 Oct, [facility] [address] [facility] [id number] [place] [address]- 2546 Jun, [facility] [address] [facility] [id number] [place] [address]- 2546 Feb, [facility] [address] [facility] [id number] [place] [address]- 2546 Feb, [facility] [address] [id number] [place] [address]- 2546 Feb, [facility] [address] [facility] [id number] [place] [address]- 9806 Dec, IMMUNIZATIONS No Known Immunizations SOCIAL HISTORY Never Assessed REASON FOR VISIT Refill Request PLAN OF CARE VITAL SIGNS MEDICATIONS Medication Instructions Dosage Frequency Start Date End Date Duration Status Eliquis 5 mg Orally 2 times a day 1 tablet 12h May, 30 days Active RESULTS No Results PROCEDURES No Known [...]
--- OUTSIDE RECORDS SUMMARY | 2018-08-02 08:55 | XMS REPORT ---
Author Author KIANA ASHLEY [facility] Address [address] [place] [address] Care Team Providers Care Television Program Director Name Role Phone KIANAGILSON VILLEGASHANY Unavailable PROBLEMS Type Condition ICD9-CM Code CGX55-SW Code Onset Dates Condition Status SNOMED Code Problem Generalized anxiety disorder F41.1 Active 712186385 Problem 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 Active 161387373 Problem History of DVT (deep vein thrombosis) Z86.718 Active 737792883 Problem Factor V Leiden D68.51 Active 909967666 Problem Hypertriglyceridemia E78.1 Active 106632029 Problem care home (current) use of anticoagulants Z79.01 Active 255618348 Problem Thyroid nodule E04.1 Active 145159497 Problem Excessive daytime sleepiness G47.19 Active 604046905986 Problem Peripheral edema R60.9 Active 045768570 Problem Pelvic pain R10.2 Active 16374412 Problem Gastroesophageal reflux disease, esophagitis presence not specified K21.9 Active 144507465 Problem Presence of IVC filter Z95.828 Active 898798375 ALLERGIES No Known Allergies ENCOUNTERS Encounter Location Date Diagnosis [facility] [address] [address] Aug, [facility] [address], [place] [address] Aug, [place] [id number] [place] [address] 47026- 3082 Aug, Acute pain of left shoulder M25.512 and Thyroid nodule E04.1 [facility] [facility] [id number] [place] [address] 35916- 1904 July, Superior glenoid labrum lesion of left shoulder, subsequent encounter S43.432D [facility] [address] [place] [address] Jun, History of DVT (deep vein thrombosis) Z86.718 [facility] [address] [place] [id number] [place] [address] 04084- 7634 Jun, History of DVT (deep vein thrombosis) Z86.718 [facility] [address] [place] [id number] [place] [address] 96193- 7535 Jun, Impingement syndrome, shoulder, left M75.42 [facility] [address] [place] [id number] [place] [address] 22089- 6210 May, Subacromial bursitis of left shoulder joint M75.52 [facility] [address] [place] [id number] [place] [address] 40351- 2749 May, [facility] [address] [address] [id number] [place] [address] 32185- 0765 May, Hypertriglyceridemia E78.1 ; buttermaker (current) use of anticoagulants Z79.01 and Excessive daytime sleepiness G47.19 [facility] [address] [place] [address] [id number] [place] [address] 46368- 2974 May, History of DVT (deep vein thrombosis) Z86.718 ; Generalized anxiety disorder F41.1 ; Hypertriglyceridemia E78.1 ; care home (current) use of anticoagulants Z79.01 ; Subacromial bursitis of left shoulder joint M75.52 and Excessive daytime sleepiness G47.19 [facility] [id number] [place] [address] 59843- 3751 May, [facility] [address] [place] [address] [id number] [place] [address] 78331- 9672 May, buttermaker (current) use of anticoagulants Z79.01 [facility] [address] [place] [address] [id number] [place] [address] 83545- 3717 Apr, buttermaker (current) use of anticoagulants Z79.01 [facility] [address] [place] [address] [id number] [place] [address] 21878- 5194 Apr, care home (current) use of anticoagulants Z79.01 [facility] [id number] [place] [address] 81979 2546 Apr, buttermaker (current) use of anticoagulants Z79.01 [facility] [id number] [place] [address] 43944 2546 16 Apr, 2017 [facility] [address] [address] 2546 Apr, care home (current) use of anticoagulants Z79.01 [facility] [id number] [place] [address] 09099 2546 13 Apr, 2017 buttermaker (current) use of anticoagulants Z79.01 [facility] [id number] [place] [address] 72179 2546 Apr, buttermaker (current) use of anticoagulants Z79.01 [facility] [id number] [place] [address] 59665 2546 Apr, buttermaker (current) use of anticoagulants Z79.01 [facility] [id number] [place] [address] 25258 2546 Apr, care home (current) use of anticoagulants Z79.01 [facility] [id number] [place] [address] 20654 2546 Apr, buttermaker (current) use of anticoagulants Z79.01 [facility] [id number] [place] [address] 78438 2546 Mar, care home (current) use of anticoagulants Z79.01 [facility] [id number] [place] [address] 52427 2546 Mar, [facility] [id number] [place] [address] 70848 2546 Mar, buttermaker (current) use of anticoagulants Z79.01 [facility] [id number] [place] [address] [phone] Jan, Dental examination Z01.20 [facility] [id number] [place] [address] [id number] Jan, [facility] [id number] [place] [address] 04922- 9449 Jan, buttermaker (current) use of anticoagulants Z79.01 [facility] [address] 31609- 4028 Jan, History of DVT (deep vein thrombosis) Z86.718 [facility] [id number] [place] [address] 49285- 3327 Jan, Generalized anxiety disorder F41.1 and Peripheral edema R60.9 [facility] [address] [place] [id number] [place] [address] 07548- 3274 Nov, History of DVT (deep vein thrombosis) Z86.718 [facility] [address] [id number] [place] [address] 64937- 6866 Nov, buttermaker (current) use of anticoagulants Z79.01 [facility] [address] [place] [id number] [place] [address] 09641 -0406 Nov, Acute non-recurrent maxillary sinusitis J01.00 [facility] [id number] [place] [address] 92321- 4221 Oct, buttermaker (current) use of anticoagulants Z79.01 [facility] [id number] [place] [address] 22050- 1080 Oct, Personal history of venous thrombosis and embolism Z86.718 [facility] [address] [id number] [place] [address] 16859- 4735 Sep, [facility] [address] 93324- 6364 Sep, Personal history of venous thrombosis and embolism Z86.718 [facility] [address] [id number] [place] [address] 01266- 4217 Sep, buttermaker (current) use of anticoagulants Z79.01 [facility] [address] [place] [id number] [place] [address] 13665- 2153 Sep, buttermaker (current) use of anticoagulants Z79.01 [facility] [address] [place] [id number] [place] [address] 91043- 5726 Sep, Generalized anxiety disorder F41.1 and History of DVT (deep vein thrombosis) Z86.718 [facility] [address] [place] [address] [id number] [place] [address] 16786- 2232 Aug, History of DVT (deep vein thrombosis) Z86.718 ; Generalized anxiety disorder F41.1 ; care home (current) use of anticoagulants Z79.01 ; Pelvic pain R10.2 ; Hypertriglyceridemia E78.1 ; Excessive daytime sleepiness G47.19 ; Colon cancer screening Z12.11 ; Screening for breast cancer Z12.39 ; Peripheral edema R60.9 and Gastroesophageal reflux disease, esophagitis presence not specified K21.9 [facility] [address] [place] [address] [id number] [place] [address] 63166- 4139 Aug, [facility] [address] [place] [address] [id number] [place] [address] 97454- 4516 July, [facility] [address] [place] [address] [id number] [place] [address] 56277- 8510 July, History of DVT (deep vein thrombosis) Z86.718 [facility] [address] [place] [id number] [place] [address] 24349- 0631 Jun, Generalized anxiety disorder F41.1 [facility] [address] [place] [id number] [place] [address] 09762- 3211 Jun, History of DVT (deep vein thrombosis) Z86.718 [facility] [address] [place] [id number] [place] [address] 18402- 4836 Jun, History of DVT (deep vein thrombosis) Z86.718 [facility] [address] [place] [address]- 1459 Jun, History of DVT (deep vein thrombosis) Z86.718 [facility] [address] [place] [id number] [place] [address] 28555- 7924 Jun, History of DVT (deep vein thrombosis) Z86.718 [facility] [address] [place] [id number] [place] [address] 87729- 2834 May, History of DVT (deep vein thrombosis) Z86.718 [facility] [address] [place] [id number] [place] [address] 81378- 6120 May, care home (current) use of anticoagulants Z79.01 [facility] [address] [place] [id number] [place] [address] 44167- 9564 May, care home (current) use of anticoagulants Z79.01 [facility] [address] [place] [id number] [place] [address] 75976- 4038 May, History of DVT (deep vein thrombosis) Z86.718 [facility] [address] [place] [id number] [place] [address] 22239 -2269 Apr, Bacterial conjunctivitis of left eye H10.9 and H/O motion sickness Z87.898 [facility] [address] [place] [address] 79459- 4497 Apr, History of DVT (deep vein thrombosis) Z86.718 [facility] [address] [place] [id number] [place] [address] 95070- 5213 Apr, History of DVT (deep vein thrombosis) Z86.718 [facility] [address] [place] [address] [id number] [place] [address] 85509- 3022 Apr, History of DVT (deep vein thrombosis) Z86.718 [facility] [id number] [place] [address] 68919- 2268 14 Apr, 2016 buttermaker (current) use of anticoagulants Z79.01 [facility] [address], [place] [address]- 4726 Mar, [facility] [address] [place] [address] [id number] [place] [address] 16888- 2516 Mar, care home (current) use of anticoagulants Z79.01 [facility] [id number] [place] [address] 82324 2546 Mar, Hypertriglyceridemia E78.1 and buttermaker (current) use of anticoagulants Z79.01 [facility] [address] [place] [id number] [place] [address] 39653 2546 Feb, care home (current) use of anticoagulants Z79.01 [facility] [address] [place] [id number] [place] [address] 43361 2546 Feb, buttermaker (current) use of anticoagulants Z79.01 [facility] [address] [place] [id number] [place] [address] 23059- 3866 Feb, care home (current) use of anticoagulants Z79.01 [facility] [id number] [place] [address] 67352- 5786 Dec, [facility] [address] [place] [id number] [place] [address] 43932- 7986 Nov, [facility] [address] [place] [address] 85574- 1809 Nov, History of DVT (deep vein thrombosis) Z86.718 ; Tremulousness R25.1 ; Generalized anxiety disorder F41.1 ; Peripheral edema R60.9 and Hypertriglyceridemia E78.1 [facility] [address], [place] [address] 2546 Oct, History of DVT (deep vein thrombosis) Z86.718 [facility] [id number] [place] [address] 57955 2546 Oct, [facility] [address] [place] [address] 92039- 2545 Sep, History of DVT (deep vein thrombosis) Z86.718 [facility] [address], [place] [address]- 8579 Sep, care home (current) use of anticoagulants Z79.01 [facility] [address], [place] [address]- 4427 July, [facility] [address] [place] [id number] [place] [address] 27351- 2206 July, buttermaker (current) use of anticoagulants Z79.01 [facility] [address] [place] [id number] [place] [address] 17588- 8270 July, buttermaker (current) use of anticoagulants Z79.01 [facility] [address] [place] [id number] [place] [address] 24682- 3818 Jun, buttermaker (current) use of anticoagulants Z79.01 [facility] [address] [id number] [place] [address] 86275 -5907 Jun, Coccyx pain M53.3 ; Encounter for therapeutic drug level monitoring Z51.81 and care home current use 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.01 [facility] [address] [place] [id number] [place] [address] 31352- 3699 May, Abnormal mammogram R92.8 [facility] [address] [place] [id number] [place] [address] 86906 -5357 May, [facility] [address] [place] [address] [id number] [place] [address] 00941 -3863 May, Acute vaginitis N76.0 and Encounter for other screening for malignant neoplasm of breast Z12.39 [facility] [address] [place] [id number] [place] [address] 78630- 3511 Apr, [facility] [id number] [place] [address] 25092- 2853 Apr, [facility] [address] [place] [address] [id number] [place] [address] 30219- 8980 Apr, Peripheral edema R60.9 [facility] [id number] [place] [address] 03844 2546 Apr, care home (current) use of anticoagulants Z79.01 [facility] [address] [place] [id number] [place] [address] 90583 2546 Apr, Peripheral edema R60.9 and buttermaker (current) use of anticoagulants Z79.01 [facility] [address] [place] [id number] [place] [address] 58261 2546 Apr, buttermaker (current) use of anticoagulants Z79.01 [facility] [address] [place] [id number] [place] [address] 74440 2546 Apr, [facility] [address] [place] [address] [id number] [place] [address] 26455 2546 Apr, buttermaker (current) use of anticoagulants Z79.01 [facility] [address] [place] [id number] [place] [address] 06741 2546 Apr, Peripheral edema R60.9 [facility] [address] [place] [id number] [place] [address] 03598 2546 Mar, care home (current) use of anticoagulants Z79.01 [facility] [address] [place] [address] [id number] [place] [address] 98049 2546 Mar, buttermaker (current) use of anticoagulants Z79.01 and Hypertriglyceridemia E78.1 [facility] [address] [place] [address] [id number] [place] [address] 40379 2546 Mar, buttermaker (current) use of anticoagulants Z79.01 [facility] [address] [place] [address] [id number] [place] [address] 10076 2546 Mar, care home (current) use of anticoagulants Z79.01 [facility] [address] [place] [id number] [place] [address] 04481 2546 Mar, [facility] [address] [place] [id number] [place] [address]- 6824 Mar, buttermaker (current) use of anticoagulants Z79.01 ; Hypertriglyceridemia E78.1 ; Personal history of venous thrombosis and embolism Z86.718 and Lump R22.9 [facility] [address] [place] [id number] [place] [address] 33635- 6745 Mar, Personal history of venous thrombosis and embolism Z86.718 [facility] [address] [place] [id number] [place] [address] 31160- 6150 Mar, Personal history of venous thrombosis and embolism Z86.718 [facility] [address] [place] [id number] [place] [address] 27124- 3785 Mar, [facility] [address] [place] [address] [id number] [place] [address] 01047- 1496 Dec, Personal history of venous thrombosis and embolism Z86.718 [facility] [address] [place] [id number] [place] [address] 15917- 2866 Dec, Personal history of venous thrombosis and embolism V12.51 [facility] [address] [place] [id number] [place] [address] 23161- 3525 Nov, Personal history of venous thrombosis and embolism V12.51 [facility] [address] [place] [address] [id number] [place] [address] 99822- 0082 Nov, Personal history of venous thrombosis and embolism V12.51 [facility] [address] [place] [id number] [place] [address] 44236- 8314 Nov, Personal history of venous thrombosis and embolism V12.51 [facility] [address] [place] [address] 94688- 4433 Nov, Personal history of venous thrombosis and embolism V12.51 [facility] [address] [place] [id number] [place] [address] 85306- 4857 Nov, [facility] [address] [place] [address] [id number] [place] [address] 90523- 4862 Oct, Dysuria 788.1 [facility] [address], [place] [address]- 0122 Oct, Personal history of venous thrombosis and embolism V12.51 [facility] [address], [place] [address]- 1530 Oct, [facility] [address] [place] [address] 50918- 5156 Oct, Personal history of venous thrombosis and embolism V12.51 [facility] [address], [place] [address]- 9155 Sep, Personal history of venous thrombosis and embolism V12.51 [facility] [id number] [place] [address] 22918- 5792 Sep, Personal history of venous thrombosis and embolism V12.51 [facility] [address], [place] [address]- 8831 Aug, Personal history of venous thrombosis and embolism V12.51 [facility] [address] [address]- 3103 Aug, Personal history of venous thrombosis and embolism V12.51 [facility] [address] [place] [address]- 6375 Aug, Personal history of venous thrombosis and embolism V12.51 [facility] [address], [place] [address]- 0254 July, Generalized anxiety disorder 300.02 ; Abdominal pain, left lower quadrant 789.04 and Personal history of venous thrombosis and embolism V12.51 [facility] [address], [place] [address]- 0521 Jun, [facility] [address] [place] [address]- 7687 Jun, [facility] [address] [place] [address]- 9469 May, [facility] [place] [facility] [address] [id number] [place] [address]- 4536 May, [facility] [place] [facility] [address] [id number] [place] [address]- 4204 May, [facility] [place] [facility] [address] [id number] [place] [address]- 8962 May, [facility] [place] [facility] [address] [id number] [place] [address]- 6421 May, [facility] [place] [facility] [address] [id number] [place] [address]- 4453 May, [facility] [place] [facility] [address] [id number] [place] [address]- 1326 May, [facility] [place] [facility] [address] [id number] [place] [address]- 9082 May, [facility] [place] [facility] [address] [id number] [place] [address]- 5665 Apr, [facility] [place] [facility] [address] [id number] [place] [address]- 7247 Apr, [facility] [place] [facility] [address] [id number] [place] [address]- 5344 Apr, [facility] [place] [facility] [address] [id number] [place] [address]- 3566 Apr, [facility] [place] [facility] [address] [id number] [place] [address]- 7619 Apr, [facility] [place] [facility] [address] [id number] [place] [address]- 6053 Mar, [facility] [place] [facility] [address] [id number] [place] [address]- 0839 Mar, [facility] [place] [facility] [address] [id number] [place] [address]- 8570 Mar, [facility] [place] [facility] [address] [id number], [place] [address]- 8596 Mar, [facility] [place] [facility] [address] [id number] [place] [address]- 7370 Mar, [facility] [place] [facility] [address] [id number] [place] [address]- 3362 Mar, [facility] [place] [facility] [address] [facility] [id number] [place] [address]- 4648 Feb, [facility] [place] [facility] [address] [id number] [place] [address]- 2787 Feb, [facility] [place] [facility] [address] [id number] [place] [address]- 2316 Feb, [facility] [place] [facility] [address] [id number] [place] [address]- 9766 Feb, [facility] [place] [facility] [address] [facility] [id number] [place] [address]- 1392 Feb, [facility] [place] [facility] [address] [id number] [place] [address]- 2368 Feb, [facility] [place] [facility] [address] [id number] [place] [address]- 3912 Feb, [facility] [place] [facility] [address] [facility] [id number] [place] [address]- 7688 Feb, [facility] [place] [facility] [address] [id number] [place] [address]- 6480 Feb, [facility] [place] [facility] [address] [id number] [place] [address]- 4483 Feb, [facility] [place] [facility] [address] [id number] [place] [address]- 0641 Jan, [facility] [place] [facility] [address] [id number] [place] [address]- 8445 Jan, [facility] [place] [facility] [address] [facility] [id number] [place] [address]- 5715 Jan, [facility] [place] [facility] [address] [id number] [place] [address]- 9233 Jan, [facility] [place] [facility] [address] [id number] [place] [address] Jan, [facility] [place] [facility] [address] [id number] [place] [address] Jan, [facility] [place] [facility] [address] [id number] [place] [address] Jan, [facility] [place] [facility] [address] [id number] [place] [address] Jan, [facility] [place] [facility] [address] [id number] [place] [address] Jan, [facility] [place] [facility] [address] [id number] [place] [address] Jan, [facility] [place] [facility] [address] [id number] [place] [address] Dec, [facility] [place] [facility] [address] [id number] [place] [address] Dec, [facility] [place] [facility] [address] [id number] [place] [address] Dec, [facility] [place] [facility] [address] [id number] [place] [address] Dec, [facility] [place] [facility] [address] [id number] [place] [address] Dec, [facility] [place] [facility] [address] [id number] [place] [address] Dec, [facility] [place] [facility] [address] [id number] [place] [address] Dec, [facility] [place] [facility] [address] [id number] [place] [address] Dec, [facility] [place] [facility] [address] [id number] [place] [address] Dec, [facility] [place] [facility] [address] [id number] [place] [address] Dec, [facility] [place] [facility] [address] [id number] [place] [address]- [address] Dec, [facility] [place] [facility] [address] [id number] [place] [address]- [address] Dec, [facility] [place] [facility] [address] [id number] [place] [address]- [address] Dec, [facility] [place] [facility] [address] [id number] [place] [address]- [address] Dec, [facility] [place] [facility] [address] [id number] [place] [address]- [address] Dec, [facility] [place] [facility] [address] [id number] [place] [address]- [address] 30 Nov, 2013 [facility] [place] [facility] [address] [id number] [place] [address]- [address] 30 Nov, 2013 [facility] [place] [facility] [address] [id number] [place] [address]- [address] 26 Nov, 2013 [facility] [place] [facility] [address] [id number] [place] [address]- [address] 26 Nov, 2013 [facility] [place] [facility] [address] [id number], [place] [address] 24 Sep, 2013 [facility] [place] [facility] [address] [id number], [place] [address] 24 Sep, 2013 [facility] [place] [facility] [address] [id number] [place] [address]- [address] 23 Sep, 2013 [facility] [place] [facility] [address] [id number] [place] [address]- [address] 23 Sep, 2013 [facility] [place] [facility] [address] [id number] [place] [address]- [address] 18 Nov, 2013 [facility] [place] [facility] [address] [id number] [place] [address]- [address] 18 Nov, 2013 [facility] [place] [facility] [address] [id number] [place] [address] 17 Nov, 2013 [facility] [place] [facility] [address] [id number] [place] [address] 17 Nov, 2013 [facility] [place] [facility] [address] [id number] [place] [address] 2546 11 Nov, 2013 [facility] [place] [facility] [address] [id number] [place] [address] 2546 11 Nov, 2013 [facility] [place] [facility] [address] [id number] [place] [address] 6229 10 Nov, 2013 [facility] [place] [facility] [address] [id number] [place] [address] 8205 10 Nov, 2013 [facility] [place] [facility] [address] [id number] [place] [address] 2720 08 Nov, 2013 [facility] [place] [facility] [address] [id number] [place] [address] 4[address] 08 Nov, 2013 [facility] [place] [facility] [address] [id number] [place] [address] 1367 Sep, 2013 [facility] [place] [facility] [address] [id number] [place] [address] Sep, [facility] [place] [facility] [address] [id number] [place] [address] 1419 Sep, 2013 [facility] [place] [facility] [address] [id number] [place] [address] Sep, 2013 [facility] [place] [facility] [address] [id number] [place] [address] 6007 Sep, [facility] [place] [facility] [address] [id number] [place] [address]- 7298 Sep, 2013 [facility] [place] [facility] [address] [id number] [place] [address] 2472 Aug, [facility] [place] [facility] [address] [id number] [place] [address] 7937 Aug, [facility] [place] [facility] [address] [id number] [place] [address]- 4997 Aug, [facility] [place] [facility] [address] [id number] [place] [address] 7525 Aug, [facility] [place] [facility] [address] [id number] [place] [address]- 3612 Aug, [facility] [place] [facility] [address] [id number] [place] [address]- 1121 Aug, [facility] [place] [facility] [address] [id number] [place] [address]- 5987 Aug, [facility] [place] [facility] [address] [id number] [place] [address] 3222 Aug, [facility] [place] [facility] [address] [id number] [place] [address]- 9224 Aug, [facility] [place] [facility] [address] [id number] [place] [address]- 0734 Aug, [facility] [place] [facility] [address] [id number] [place] [address]- 5558 Aug, [facility] [place] [facility] [address] [id number] [place] [address] 3870 July, [facility] [place] [facility] [address] [id number] [place] [address]- 2436 July, [facility] [place] [facility] [address] [id number] [place] [address]- 4368 Jun, [facility] [place] [facility] [address] [id number] [place] [address]- 3228 Jun, [facility] [place] [facility] [address] [id number] [place] [address]- 1819 Jun, [facility] [place] [facility] [address] [id number] [place] [address]- 7902 18 Jun, 2013 [facility] [place] [facility] [address] [id number] [place] [address]- 5842 18 Jun, 2013 [facility] [place] [facility] [address] [id number] [place] [address]- 4861 18 Jun, 2013 [facility] [place] [facility] [address] [id number] [place] [address]- 2118 15 Jun, 2013 [facility] [place] [facility] [address] [id number] [place] [address]- 2781 15 Jun, 2013 [facility] [place] [facility] [address] [id number] [place] [address]- 0484 Jun, [facility] [place] [facility] [address] [id number] [place] [address]- 7059 Jun, [facility] [place] [facility] [address] [id number] [place] [address]- 8287 Jun, [facility] [place] [facility] [address] [id number] [place] [address]- 1679 Jun, [facility] [place] [facility] [address] [id number] [place] [address]- 3518 May, [facility] [place] [facility] [address] [id number] [place] [address]- 2431 May, [facility] [place] [facility] [address] [id number] [place] [address]- 9518 May, [facility] [place] [facility] [address] [id number] [place] [address]- 6659 May, [facility] [place] [facility] [address] [id number] [place] [address]- 3882 May, [facility] [place] [facility] [address] [id number] [place] [address]- 4496 May, [facility] [place] [facility] [address] [id number] [place] [address]- 2297 May, [facility] [place] [facility] [address] [id number] [place] [address]- 7641 May, [facility] [place] [facility] [address] [id number] [place] [address]- 9258 May, [facility] [place] [facility] [address] [id number] [place] [address]- 3051 May, [facility] [place] [facility] [address] [id number] [place] [address]- 9960 May, [facility] [place] [facility] [address] [id number] [place] [address]- 8401 May, [facility] [place] [facility] [address] [id number] [place] [address]- 4858 Apr, [facility] [place] [facility] [address] [facility] [id number] [place] [address]- 6086 Apr, [facility] [place] [facility] [address] [id number] [place] [address]- 8850 Apr, [facility] [place] [facility] [address] [id number] [place] [address]- 6863 Apr, [facility] [place] [facility] [address] [id number] [place] [address]- 3279 Apr, [facility] [place] [facility] [address] [facility] [id number] [place] [address]- 2677 Apr, [facility] [place] [facility] [address] [id number] [place] [address]- 6078 Apr, [facility] [place] [facility] [address] [id number] [place] [address]- 0186 Apr, [facility] [place] [facility] [address] [id number] [place] [address]- 2134 Apr, [facility] [place] [facility] [address] [id number] [place] [address]- 4812 Apr, [facility] [place] [facility] [address] [facility] [id number] [place] [address]- 8881 Apr, [facility] [place] [facility] [address] [id number] [place] [address]- 2016 Apr, [facility] [place] [facility] [address] [id number] [place] [address]- 5456 Apr, 2013 [facility] [place] [facility] [address] [id number] [place] [address]- 6126 Apr, [facility] [place] [facility] [address] [id number] [place] [address]- 2814 Apr, [facility] [place] [facility] [address] [id number] [place] [address]- 6415 Apr, [facility] [place] [facility] [address] [id number] [place] [address]- 4768 Apr, [facility] [place] [facility] [address] [facility] [id number] [place] [address]- 2236 Jan, [facility] [place] [facility] [address] [id number] [place] [address]- 6305 Jan, [facility] [place] [facility] [address] [id number] [place] [address]- 3304 Jan, [facility] [place] [facility] [address] [facility] [id number] [place] [address]- 5401 Jan, [facility] [place] [facility] [address] [id number] [place] [address]- 3917 Jan, [facility] [place] [facility] [address] [id number] [place] [address]- 9797 Jan, [facility] [place] [facility] [address] [id number] [place] [address]- 5632 Jan, [facility] [place] [facility] [address] [id number] [place] [address]- 0115 Dec, [facility] [place] [facility] [address] [id number] [place] [address]- 6357 Dec, [facility] [place] [facility] [address] [id number] [place] [address]- 4160 Dec, [facility] [place] [facility] [address] [id number] [place] [address]- 2096 Nov, [facility] [place] [facility] [address] [id number] [place] [address]- 1424 Nov, [facility] [place] [facility] [address] [id number] [place] [address]- 8774 Nov, [facility] [address] [id number] [place] [address]- 8951 Nov, [facility] [place] [facility] [address] [id number] [place] [address]- 7367 Oct, [facility] [place] [facility] [address] [id number] [place] [address]- 0264 Oct, [facility] [place] [facility] [address] [id number] [place] [address]- 3799 Oct, [facility] [place] [facility] [address] [id number] [place] [address]- 0995 Oct, [facility] [place] [facility] [address] [id number] [place] [address]- 9037 Oct, [facility] [place] [facility] [address] [id number] [place] [address]- 5407 Sep, [facility] [place] [facility] [address] [id number] [place] [address]- 5951 Sep, [facility] [place] [facility] [address] [id number] [place] [address]- 4687 Sep, [facility] [place] [facility] [address] [id number] [place] [address]- 0864 Sep, [facility] [place] [facility] [address] [id number] [place] [address]- 4843 Sep, [facility] [place] [facility] [address] [id number] [place] [address]- 1629 Sep, [facility] [address] [id number] [place] [address]- 6882 Sep, [facility] [address] [id number] [place] [address]- 8954 Aug, [facility] [address] [id number] [place] [address]- 9269 Aug, [facility] [address] [id number] [place] [address]- 7645 July, [facility] [address] [id number] [place] [address]- 9326 Jun, [facility] [address] [id number] [place] [address]- 8406 Jun, [facility] [address] [id number] [place] [address]- 4456 Jun, [facility] [address] [id number] [place] [address]- 5204 Apr, [facility] [address] [id number] [place] [address]- 0771 Apr, [facility] [address] [id number] [place] [address]- 4726 Apr, [facility] [address] [id number] [place] [address]- 2023 Mar, [facility] [place] [facility] [address] [id number] [place] [address]- 7941 Mar, [facility] [place] [facility] [address] [id number] [place] [address]- 2337 Mar, [facility] [place] [facility] [address] [id number] [place] [address]- 7865 Mar, [facility] [place] [facility] [address] [id number] [place] [address]- 8255 Mar, [facility] [place] [facility] [address] [id number] [place] [address]- 6810 14 Feb, 2012 [facility] [place] [facility] [address] [id number] [place] [address]- 0926 14 Feb, 2012 [facility] [place] [facility] [address] [id number] [place] [address]- 1466 13 Jan, 2012 [facility] [place] [facility] [address] [id number] [place] [address]- 7136 13 Jan, 2012 [facility] [place] [facility] [address] [id number] [place] [address]- 5793 13 Jan, 2012 [facility] [place] [facility] [address] [id number] [place] [address]- 3439 13 Jan, 2012 [facility] [place] [facility] [address] [id number] [place] [address]- 4119 07 Jan, 2012 [facility] [place] [facility] [address] [id number] [place] [address]- 5008 07 Jan, 2012 [facility] [place] [facility] [address] [id number] [place] [address]- 0545 06 Jan, 2012 [facility] [place] [facility] [address] [id number] [place] [address]- 2630 31 Dec, 2011 [facility] [place] [facility] [address] [id number] [place] [address]- 1578 31 Dec, 2011 [facility] [place] [facility] [address] [id number] [place] [address]- 7116 30 Dec, 2011 [facility] [place] [facility] [address] [id number] [place] [address]- 4105 30 Dec, 2011 [facility] [place] [facility] [address] [id number] [place] [address]- 2986 30 Dec, 2011 [facility] [place] [facility] [address] [id number] [place] [address]- 4986 30 Dec, 2011 [facility] [place] [facility] [address] [id number] [place] [address]- 8393 Dec, [facility] [place] [facility] [address] [id number] [place] [address]- 8178 Dec, [facility] [place] [facility] [address] [id number] [place] [address]- 3686 Dec, [facility] [place] [facility] [address] [id number] [place] [address]- 2462 Dec, [facility] [place] [facility] [address] [id number] [place] [address]- 4861 Oct, [facility] [place] [facility] [address] [id number] [place] [address]- 9331 Oct, [facility] [place] [facility] [address] [id number] [place] [address]- 3239 Aug, [facility] [place] [facility] [address] [id number] [place] [address]- 3568 Aug, [facility] [place] [facility] [address] [id number] [place] [address]- 1047 July, [facility] [place] [facility] [address] [id number] [place] [address]- 5884 Jun, [facility] [place] [facility] [address] [id number] [place] [address]- 6736 Jun, [facility] [place] [facility] [address] [id number] [place] [address]- 3786 May, [facility] [place] [facility] [address] [id number], [place] [address]- 1031 Apr, [facility] [place] [facility] [address] [id number] [place] [address] 2546 Apr, [facility] [place] [facility] [address] [id number] [place] [address] 2546 Mar, [facility] [place] [facility] [address] [id number] [place] [address]- 2546 Mar, [facility] [place] [facility] [address] [id number] [place] [address]- 0397 19 Feb, 2011 [facility] [address] [id number] [place] [address]- 7853 15 Feb, 2011 [facility] [address] [id number] [place] [address]706 13 Feb, 2011 [facility] [address] [id number] [place] [address]- 2706 13 Feb, 2011 [facility] [address] [id number] [place] [address]- 2543 11 Jan, 2011 [facility] [address] [id number] [place] [address]- 0313 17 Dec, 2010 [facility] [address] [id number] [place] [address]- 1658 08 Feb, 2010 [facility] [address] [id number] [place] [address]- 6534 02 Feb, 2010 [facility] [address] [id number] [place] [address]- 6732 Feb, [facility] [address] [id number] [place] [address]- 7319 Feb, [facility] [address] [facility] [id number] [place] [address]- 0413 15 Dec, 2009 [facility] [address] [id number] [place] [address]- 7277 15 Dec, 2009 [facility] [address] [id number] [place] [address]- 5559 Oct, [facility] [address] [id number] [place] [address]- 0914 15 Jun, 2009 [facility] [address] [id number] [place] [address]- 3142 Feb, [facility] [address] [id number] [place] [address]- 3975 Feb, [facility] [address] [facility] [id number] [place] [address]- 2546 Feb, [facility] [address] [facility] [id number] [place] [address]- 8356 Dec, IMMUNIZATIONS No Known Immunizations SOCIAL HISTORY Never Assessed REASON FOR VISIT Left arm pain that began around 6-7 months ago, states it is now a constant throb, concerns she has torn something-AHarrymanRN, Discuss INR PLAN OF CARE Activity Details Follow Up prn for shoulder, 6 mo for blood pressure Reason: VITAL SIGNS Height 64 in 2017-06-04 Weight 195.2 lbs 2017-06-04 Temperature 98.4 degrees Fahrenheit 2017-06-04 Heart Rate 84 bpm 2017-06-04 Respiratory Rate 20 2017-06-04 BMI 33.50 kg/m2 2017-06-04 Blood pressure systolic 114 mmHg 2017-06-04 Blood pressure diastolic 70 mmHg 2017-06-04 MEDICATIONS Medication Instructions Dosage Frequency Start Date End Date Duration Status Eliquis 5 mg Orally 2 times a day 1 tablet 12h May, 30 days Active Hydrochlorothiazide 50 MG TAKE ONE TABLET BY MOUTH ONCE DAILY 90 Active Lexapro 10 MG TAKE ONE TABLET BY MOUTH ONCE DAILY Active Omeprazole 10 MG Orally Once a day 1 capsule 24h Not-Taking Tylenol 325 MG Orally every 6 hrs 1 tablet as needed 6h Not-Taking Vistaril 50 mg Orally every 6 hrs 1 capsule as needed 6h 90 days Not -Taking Ondansetron 4 MG Orally every 8 hrs PRN 1 tablet on the tongue and allow to dissolve Apr, 05 days Not-Taking RESULTS Name Result Date Reference Range INR (IN HOUSE) 2017-06-04 INR 2.1 1.10 - 3.30 PREVIOUS INR 4.4 CURRENT COUMADIN DOSE none NEW COUMADIN DOSE Lot # [id number] Exp date 02/26/18 PROCEDURES Procedure Date Ordered Result Body Site PROTHROMBIN TIME June 04, 2017 INSTRUCTIONS MEDICATIONS ADMINISTERED No Known Medications [...]
--- OUTSIDE RECORDS SUMMARY | 2018-08-02 08:55 | XMS REPORT ---
Author Author KIANA ASHLEY [facility] Address [address] [place] [address] Care Team Providers Care Sales And Service Consultant Name Role Phone KIANAGILSON VILLEGASHANY Unavailable PROBLEMS Type Condition ICD9-CM Code DVM91-PR Code Onset Dates Condition Status SNOMED Code Problem Generalized anxiety disorder F41.1 Active 112901525 Problem 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 Active 594413020 Problem History of DVT (deep vein thrombosis) Z86.718 Active 999121187 Problem Factor V Leiden D68.51 Active 795793211 Problem Hypertriglyceridemia E78.1 Active 079562957 Problem halfway (current) use of anticoagulants Z79.01 Active 614479741 Problem Thyroid nodule E04.1 Active 620827973 Problem Excessive daytime sleepiness G47.19 Active 406843748091 Problem Peripheral edema R60.9 Active 984435773 Problem Pelvic pain R10.2 Active 81814270 Problem Gastroesophageal reflux disease, esophagitis presence not specified K21.9 Active 036195284 Problem Presence of IVC filter Z95.828 Active 258304910 ALLERGIES No Information ENCOUNTERS Encounter Location Date Diagnosis [facility] [address] [id number] Nov, [facility] [id number] [place] [address] 44325- 6650 Oct, [facility] [id number] [place] [address] 16932- 8769 Sep, [facility] [id number] [place] [address] 20617- 7773 Aug, [facility] [id number] [place] [address] 42424835- 1237 Aug, [facility] [address] 34045- 3885 Aug, Acute pain of left shoulder M25.512 and Thyroid nodule E04.1 [place] [id number] [place] [address] 25726- 1466 July, Superior glenoid labrum lesion of left shoulder, subsequent encounter S43.432D [facility] [facility] [id number] [place] [address] 97935- 5559 Jun, History of DVT (deep vein thrombosis) Z86.718 [facility] [id number] [place] [address] 24154- 0914 Jun, History of DVT (deep vein thrombosis) Z86.718 [place] [id number] [place] [address] 09622- 9347 Jun, Impingement syndrome, shoulder, left M75.42 [facility] [id number] [place] [address] 88892- 6709 May, Subacromial bursitis of left shoulder joint M75.52 [facility] [id number] [place] [address] 45872- 5510 May, [facility] [facility] [id number] [place] [address] 49292- 0493 May, Hypertriglyceridemia E78.1 ; halfway (current) use of anticoagulants Z79.01 and Excessive daytime sleepiness G47.19 [facility] [id number] [place] [address] 74359- 6753 May, History of DVT (deep vein thrombosis) Z86.718 ; Generalized anxiety disorder F41.1 ; Hypertriglyceridemia E78.1 ; 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 ; Subacromial bursitis of left shoulder joint M75.52 and Excessive daytime sleepiness G47.19 [place] [address] [place] [address] 41103- 3512 May, [place] [id number] [place] [address] 34475- 0087 May, halfway (current) use of anticoagulants Z79.01 [facility] [address] [address] 2546 Apr, 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 [facility] [address] [place] [address] 91226 2546 Apr, 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 [facility] [address] [place] [address] 41997 2546 Apr, 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 [place] [id number] [place] [address] 22482 2546 16 Apr, 2017 [facility] [id number] [place] [address] 92226 2546 16 Apr, 2017 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 [place] [address] [place] [address] 85692 2546 13 Apr, 2017 halfway (current) use of anticoagulants Z79.01 [place] [address] [place] [address] 41001 2546 Apr, 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 [place] [address] [place] [address] 54592 2546 Apr, halfway (current) use of anticoagulants Z79.01 [facility] [address] [address] 2546 07 Apr, 2017 halfway (current) use of anticoagulants Z79.01 [place] [address] [place] [address] 97392 2546 06 Apr, 2017 halfway (current) use of anticoagulants Z79.01 [place] [address] [address] 2546 Mar, 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 [facility] [id number] [place] [address] 68254- 7007 Mar, [facility] [address] 25739- 6229 Mar, halfway (current) use of anticoagulants Z79.01 [facility] [id number] [place] [address] [id number] Jan, Dental examination Z01.20 [facility] [address] [id number] Jan, [facility] [address] 38745- 5079 Jan, 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 [facility] [address] 63284- 0028 Jan, History of DVT (deep vein thrombosis) Z86.718 [place] [address] 91987- 7548 Jan, Generalized anxiety disorder F41.1 and Peripheral edema R60.9 [facility] [address] 86011- 0031 Nov, History of DVT (deep vein thrombosis) Z86.718 [facility] [id number] [place] [address] 60887- 5149 Nov, halfway (current) use of anticoagulants Z79.01 [facility] [id number] [place] [address] 83260 -9037 Nov, Acute non-recurrent maxillary sinusitis J01.00 [facility] [id number] [place] [address] 52868- 9650 Oct, 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 [facility] [id number] [place] [address] 77374- 3200 Oct, Personal history of venous thrombosis and embolism Z86.718 [place] [address] [address]- 7274 Sep, [facility] [id number] [place] [address] 34707- 1641 Sep, Personal history of venous thrombosis and embolism Z86.718 [place] [address] [address]- 7894 Sep, 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 [place] [id number] [place] [address] 07526- 5513 Sep, halfway (current) use of anticoagulants Z79.01 [place] [id number] [place] [address] 07995- 8576 Sep, Generalized anxiety disorder F41.1 and History of DVT (deep vein thrombosis) Z86.718 [place] [address] [place] [address] 33318- 4224 Aug, History of DVT (deep vein thrombosis) Z86.718 ; Generalized anxiety disorder F41.1 ; 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 ; Pelvic pain R10.2 ; Hypertriglyceridemia E78.1 ; Excessive daytime sleepiness G47.19 ; Colon cancer screening Z12.11 ; Screening for breast cancer Z12.39 ; Peripheral edema R60.9 and Gastroesophageal reflux disease, esophagitis presence not specified K21.9 [place] [address] [address] Aug, [place] [address] [place] [address] 29641- 6400 July, [place] [id number] [place] [address] 04764- 8032 July, History of DVT (deep vein thrombosis) Z86.718 [place] [address] [address]- 4974 Jun, Generalized anxiety disorder F41.1 [place] [id number] [place] [address] 51324- 9103 Jun, History of DVT (deep vein thrombosis) Z86.718 [place] [id number] [place] [address] 61753- 7631 Jun, History of DVT (deep vein thrombosis) Z86.718 [place] [id number] [place] [address] 71553- 1659 Jun, History of DVT (deep vein thrombosis) Z86.718 [place] [id number] [place] [address] 48675- 2661 Jun, History of DVT (deep vein thrombosis) Z86.718 [place] [id number] [place] [address] 76860- 5447 May, History of DVT (deep vein thrombosis) Z86.718 [place] [id number] [place] [address] 50238- 9884 May, 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 [place] [id number] [place] [address] 16898- 0958 May, 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 [place] [id number] [place] [address] 05977- 1558 May, History of DVT (deep vein thrombosis) Z86.718 [facility] [id number] [place] [address] 89795 -8053 Apr, Bacterial conjunctivitis of left eye H10.9 and H/O motion sickness Z87.898 [place] [id number] [place] [address] 86821- 4887 Apr, History of DVT (deep vein thrombosis) Z86.718 [place] [id number] [place] [address] 35254- 4329 Apr, History of DVT (deep vein thrombosis) Z86.718 [place] [id number] [place] [address] 37708- 2956 15 Apr, 2016 History of DVT (deep vein thrombosis) Z86.718 [place] [id number] [place] [address] 35141- 8947 14 Apr, 2016 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 [place] [id number] [place] [address] 25492- 2336 Mar, [place] [id number] [place] [address] 75969- 3194 Mar, halfway (current) use of anticoagulants Z79.01 [place] [address] 62549- 4276 Mar, Hypertriglyceridemia E78.1 and 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 [place] [id number] [place] [address] 98997- 2714 Feb, 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 [place] [id number] [place] [address] 25620- 6287 Feb, 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 [place] [id number] [place] [address] 79628- 3818 Feb, 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 [place] [id number] [place] [address] 01189- 8286 Dec, [place] [id number] [place] [address] 18825- 2546 Nov, [place] [address] 31949- 9731 13 Nov, 2015 History of DVT (deep vein thrombosis) Z86.718 ; Tremulousness R25.1 ; Generalized anxiety disorder F41.1 ; Peripheral edema R60.9 and Hypertriglyceridemia E78.1 [place] [id number] [place] [address] 83687- 9715 Oct, History of DVT (deep vein thrombosis) Z86.718 [place] [id number] [place] [address] 88081- 7204 Oct, [place] [id number] [place] [address] 02230- 8850 Sep, History of DVT (deep vein thrombosis) Z86.718 [place] [id number] [place] [address] 38660- 9130 Sep, 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 [place] [address] 63677- 4729 July, [place] [address] 69127- 2077 July, 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 [place] [address] 41325- 3015 July, 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 [place] [id number] [place] [address] 06516- 7759 Jun, halfway (current) use of anticoagulants Z79.01 [facility] [id number] [place] [address] 72024 -5746 Jun, Coccyx pain M53.3 ; Encounter for therapeutic drug level monitoring Z51.81 and client server programmer current use 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.01 [facility] [id number] [place] [address] 23932- 3960 May, Abnormal mammogram R92.8 [facility] [address] 81533 -4338 May, [facility] [id number] [place] [address] 30220 -8915 May, Acute vaginitis N76.0 and Encounter for other screening for malignant neoplasm of breast Z12.39 [facility] [id number] [place] [address] 71113- 3585 Apr, [facility] [address] 25410 2546 Apr, [facility] [id number] [place] [address] 97213 2546 Apr, Peripheral edema R60.9 [place] [address] 20657 2546 Apr, halfway (current) use of anticoagulants Z79.01 [place] [id number] [place] [address] 59634 2546 Apr, Peripheral edema R60.9 and halfway (current) use of anticoagulants Z79.01 [place] [id number] [place] [address] 61882- 1656 Apr, halfway (current) use of anticoagulants Z79.01 [place] [id number] [place] [address] 39750 2546 Apr, [place] [id number] [place] [address] 21152 2546 Apr, 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 [place] [id number] [place] [address] 32554 2546 Apr, Peripheral edema R60.9 [place] [id number] [place] [address] 24564 2546 Mar, halfway (current) use of anticoagulants Z79.01 [place] [id number] [place] [address] 32175 2546 Mar, halfway (current) use of anticoagulants Z79.01 and Hypertriglyceridemia E78.1 [place] [id number] [place] [address] 73963 2546 Mar, halfway (current) use of anticoagulants Z79.01 [facility] [address] [address]- 8410 Mar, 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 [facility] [address] [address]- 1157 Mar, [facility] [address] [place] [address] 24132- 3488 Mar, 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 ; Hypertriglyceridemia E78.1 ; Personal history of venous thrombosis and embolism Z86.718 and Lump R22.9 [place] [id number] [place] [address] 98935- 2919 Mar, Personal history of venous thrombosis and embolism Z86.718 [place] [id number] [place] [address] 40896- 3940 Mar, Personal history of venous thrombosis and embolism Z86.718 [place] [address] [place] [address] 30027- 4377 Mar, [place] [id number] [place] [address] 59747- 2189 Dec, Personal history of venous thrombosis and embolism Z86.718 [place] [address] [address]- 1475 Dec, Personal history of venous thrombosis and embolism V12.51 [place] [address] [place] [address] 81799- 3111 28 Nov, 2014 Personal history of venous thrombosis and embolism V12.51 [place] [address] [place] [address] 72139- 9504 25 Nov, 2014 Personal history of venous thrombosis and embolism V12.51 [place] [address] [place] [address] 09513- 3231 17 Nov, 2014 Personal history of venous thrombosis and embolism V12.51 [place] [address] [address]- 8213 Nov, Personal history of venous thrombosis and embolism V12.51 [facility] [address] [address]- 1638 Nov, [facility] [address] [address]- 7758 Oct, Dysuria 788.1 [facility] [address] [place] [address] 58279- 1236 Oct, Personal history of venous thrombosis and embolism V12.51 [facility] [address] [address]- 3361 Oct, [facility] [address] [address]- 1091 Oct, Personal history of venous thrombosis and embolism V12.51 [facility] [address] [address]- 6885 Sep, Personal history of venous thrombosis and embolism V12.51 [facility] [address] [address]- 1426 Sep, Personal history of venous thrombosis and embolism V12.51 [facility] [address] [address]- 6436 Aug, Personal history of venous thrombosis and embolism V12.51 [facility] [address] [address]- 3905 Aug, Personal history of venous thrombosis and embolism V12.51 [facility] [id number] [address]- 9838 Aug, Personal history of venous thrombosis and embolism V12.51 [facility] [id number] [address]- 9782 July, Generalized anxiety disorder 300.02 ; Abdominal pain, left lower quadrant 789.04 and Personal history of venous thrombosis and embolism V12.51 [facility] [place] [facility] [address] [id number] [place] [address]- 9537 14 Jun, 2014 [facility] [place] [facility] [address] [id number] [place] [address]- 3693 13 Jun, 2014 [facility] [place] [facility] [address] [id number] [place] [address]- 8490 May, [facility] [place] [facility] [address] [id number] [place] [address]- 2495 May, [facility] [place] [facility] [address] [id number] [place] [address]- 5590 May, [facility] [place] [facility] [address] [id number] [place] [address]- 2257 May, [facility] [place] [facility] [address] [id number] [place] [address]- 9657 May, [facility] [place] [facility] [address] [id number] [place] [address]- 5260 May, [facility] [place] [facility] [address] [id number] [place] [address]- 6098 May, [facility] [place] [facility] [address] [id number] [place] [address]- 4189 May, [facility] [place] [facility] [address] [id number] [place] [address]- 7157 Apr, [facility] [place] [facility] [address] [id number] [place] [address]- 8085 Apr, [facility] [place] [facility] [address] [id number] [place] [address]- 1565 Apr, [facility] [place] [facility] [address] [id number] [place] [address]- 2764 Apr, [facility] [place] [facility] [address] [id number] [place] [address]- 1808 Apr, [facility] [place] [facility] [address] [id number] [place] [address]- 0246 Mar, [facility] [place] [facility] [address] [id number] [place] [address]- 5998 Mar, [facility] [place] [facility] [address] [id number] [place] [address]- 3290 Mar, [facility] [place] [facility] [address] [id number] [place] [address]- 8623 Mar, [facility] [place] [facility] [address] [id number] [place] [address]- 4318 Mar, [facility] [place] [facility] [address] [id number] [place] [address]- 3258 Mar, [facility] [place] [facility] [address] [id number] [place] [address]- 3404 Feb, [facility] [place] [facility] [address] [id number] [place] [address]- 9681 Feb, [facility] [place] [facility] [address] [id number] [place] [address]- 0809 Feb, [facility] [place] [facility] [address] [id number] [place] [address]- 8713 Feb, [facility] [place] [facility] [address] [id number] [place] [address]- 3608 Feb, [facility] [place] [facility] [address] [id number] [place] [address]- 9028 Feb, [facility] [place] [facility] [address] [id number] [place] [address]- 3476 Feb, [facility] [place] [facility] [address] [id number] [place] [address]- 6811 Feb, [facility] [place] [facility] [address] [id number] [place] 1905 Feb, [facility] [place] [facility] [address] [id number] [place] 0965 Feb, [facility] [place] [facility] [address] [id number] [place] [address]- 6940 Jan, [facility] [place] [facility] [address] [id number] [place] [address]- 4390 Jan, [facility] [place] [facility] [address] [id number] [place] [address]- 0263 Jan, [facility] [place] [facility] [address] [id number] [place] [address] Jan, [facility] [place] [facility] [address] [id number] [place] [address] Jan, [facility] [place] [facility] [address] [id number] [place] [address] Jan, [facility] [place] [facility] [address] [id number] [place] [address] Jan, [facility] [place] [facility] [address] [id number] [place] [address] Jan, [facility] [place] [facility] [address] [id number] [place] [address] Jan, [facility] [place] [facility] [address] [id number] [place] [address] Jan, [facility] [place] [facility] [address] [id number] [place] [address] Dec, [facility] [place] [facility] [address] [id number] [place] [address] Dec, [facility] [place] [facility] [address] [id number] [place] [address] Dec, [facility] [place] [facility] [address] [id number] [place] [address] Dec, [facility] [place] [facility] [address] [id number] [place] [address] Dec, [facility] [place] [facility] [address] [id number] [place] [address] Dec, [facility] [place] [facility] [address] [id number] [place] [address] Dec, [facility] [place] [facility] [address] [id number] [place] [address] Dec, [facility] [place] [facility] [address] [id number] [place] [address] Dec, [facility] [place] [facility] [address] [id number] [place] [address]- [address] Dec, [facility] [place] [facility] [address] [id number] [place] [address] Dec, [facility] [place] [facility] [address] [id number] [place] [address] Dec, [facility] [place] [facility] [address] [id number] [place] [address] Dec, [facility] [place] [facility] [address] [id number] [place] [address] Dec, [facility] [place] [facility] [address] [id number] [place] [address] 69[address] Dec, [facility] [place] [facility] [address] [id number] [place] [address] 8[address] 30 Nov, 2013 [facility] [place] [facility] [address] [id number] [place] [address] 5752 30 Nov, 2013 [facility] [place] [facility] [address] [id number] [address] 26 Nov, 2013 [facility] [place] [facility] [address] [id number] [place] [address] 2540 Nov, [facility] [place] [facility] [address] [id number] [place] [address]- 9548 24 Nov, 2013 [facility] [place] [facility] [address] [id number] [place] [address]- 3567 24 Nov, 2013 [facility] [place] [facility] [address] [id number] [place] [address]- 9483 23 Sep, 2013 [facility] [place] [facility] [address] [id number] [place] [address]- 4686 23 Sep, 2013 [facility] [place] [facility] [address] [id number] [place] [address]- 2506 18 Nov, 2013 [facility] [place] [facility] [address] [id number] [place] [address]- 2636 18 Nov, 2013 [facility] [place] [facility] [address] [id number] [place] [address]- 4906 17 Nov, 2013 [facility] [place] [facility] [address] [id number] [place] [address]- 5203 17 Nov, 2013 [facility] [place] [facility] [address] [id number] [place] [address]- 9269 11 Nov, 2013 [facility] [place] [facility] [address] [id number] [place] [address]- 3140 11 Nov, 2013 [facility] [place] [facility] [address] [id number] [place] [address]- 7659 10 Nov, 2013 [facility] [place] [facility] [address] [id number] [place] [address]- 3319 10 Nov, 2013 [facility] [place] [facility] [address] [id number] [place] [address] 1939 08 Nov, 2013 [facility] [place] [facility] [address] [id number] [place] [address]- 8151 08 Nov, 2013 [facility] [place] [facility] [address] [id number] [place] [address] 4507 Sep, 2013 [facility] [place] [facility] [address] [id number] [place] [address]- 2594 Sep, 2013 [facility] [place] [facility] [address] [id number] [place] [address]- 2090 Sep, 2013 [facility] [place] [facility] [address] [id number] [place] [address]- 6579 Sep, 2013 [facility] [place] [facility] [address] [id number] [place] [address]- 8927 Sep, [facility] [place] [facility] [address] [id number] [place] [address]- 6543 Sep, [facility] [place] [facility] [address] [id number] [place] [address]- 9604 Aug, [facility] [place] [facility] [address] [id number] [place] [address]- 1428 Aug, [facility] [place] [facility] [address] [id number] [place] [address]- 5862 Aug, [facility] [place] [facility] [address] [id number] [place] [address]- 8080 Aug, [facility] [place] [facility] [address] [id number] [place] [address]- 2568 Aug, [facility] [place] [facility] [address] [id number] [place] [address]- 8684 Aug, [facility] [place] [facility] [address] [id number] [place] [address]- 2840 Aug, [facility] [place] [facility] [address] [id number] [place] [address]- 2317 Aug, [facility] [place] [facility] [address] [id number] [place] [address]- 6811 Aug, [facility] [place] [facility] [address] [id number] [place] [address]- 8061 Aug, [facility] [place] [facility] [address] [id number] [place] [address]- 9330 Aug, [facility] [place] [facility] [address] [id number] [place] [address]- 6631 July, [facility] [place] [facility] [address] [id number] [place] [address]- 0857 July, [facility] [place] [facility] [address] [id number] [place] [address]- 0303 Jun, [facility] [place] [facility] [address] [id number] [place] [address]- 5402 Jun, [facility] [place] [facility] [address] [id number] [place] [address]- 3224 Jun, [facility] [place] [facility] [address] [id number] [place] [address]- 9542 Jun, [facility] [place] [facility] [address] [id number] [place] [address]- 2421 Jun, [facility] [place] [facility] [address] [id number] [place] [address]- 6858 Jun, [facility] [place] [facility] [address] [id number] [place] [address]- 5656 Jun, [facility] [place] [facility] [address] [id number] [place] [address]- 1343 Jun, [facility] [place] [facility] [address] [id number] [place] [address]- 0850 Jun, [facility] [place] [facility] [address] [id number] [place] [address]- 7267 Jun, [facility] [place] [facility] [address] [id number] [place] [address]- 9620 Jun, [facility] [place] [facility] [address] [id number] [place] [address]- 5442 Jun, [facility] [place] [facility] [address] [id number] [address]- 4045 May, [facility] [place] [facility] [address] [id number] [place] [address]- 4617 May, [facility] [place] [facility] [address] [id number] [place] [address]- 8282 May, [facility] [place] [facility] [address] [id number] [place] [address]- 8848 May, [facility] [place] [facility] [address] [id number] [place] [address]- 0923 May, [facility] [place] [facility] [address] [id number] [place] [address]- 0210 May, [facility] [place] [facility] [address] [id number] [place] [address]- 7235 May, [facility] [place] [facility] [address] [id number] [place] [address]- 5767 May, [facility] [place] [facility] [address] [id number] [place] [address]- 8255 May, [facility] [place] [facility] [address] [id number] [place] [address]- 9208 May, [facility] [place] [facility] [address] [id number] [place] [address]- 8075 May, [facility] [place] [facility] [address] [id number] [place] [address]- 2226 May, [facility] [place] [facility] [address] [id number] [place] [address]- 9377 Apr, [facility] [place] [facility] [address] [id number] [place] [address]- 1624 Apr, [facility] [place] [facility] [address] [facility] [id number] [place] [address]- 0764 Apr, [facility] [place] [facility] [address] [id number] [place] [address]- 4923 Apr, [facility] [place] [facility] [address] [id number] [place] [address]- 7938 Apr, [facility] [place] [facility] [address] [id number] [place] [address]- 5139 Apr, [facility] [place] [facility] [address] [facility] [id number] [place] [address]- 2200 Apr, [facility] [place] [facility] [address] [id number] [place] [address]- 2690 Apr, [facility] [place] [facility] [address] [id number] [place] [address]- 0985 Apr, [facility] [place] [facility] [address] [facility] [id number] [place] [address]- 2236 Apr, [facility] [place] [facility] [address] [facility] [id number] [place] [address]- 6306 Apr, [facility] [place] [facility] [address] [facility] [id number] [place] [address]- 2611 Apr, [facility] [place] [facility] [address] [facility] [id number] [place] [address]- 7170 Apr, [facility] [place] [facility] [address] [facility] [id number] [place] [address]- 6956 Apr, [facility] [place] [facility] [address] [id number] [address]- 7075 Apr, [facility] [place] [facility] [address] [facility] [id number] [place] [address]- 7641 Apr, [facility] [place] [facility] [address] [facility] [id number] [place] [address]- 0632 Apr, [facility] [place] [facility] [address] [facility] [id number] [place] [address]- 8515 Jan, [facility] [place] [facility] [address] [facility] [id number] [place] [address]- 1675 13 Jan, 2013 [facility] [place] [facility] [address] [facility] [id number] [place] [address]- 9791 08 Jan, 2013 [facility] [place] [facility] [address] [facility] [id number] [place] [address]- 8459 07 Jan, 2013 [facility] [place] [facility] [address] [facility] [id number] [place] [address]- 5491 07 Jan, 2013 [facility] [place] [facility] [address] [facility] [id number] [address]- 9533 07 Jan, 2013 [facility] [place] [facility] [address] [id number] [place] [address]- 5653 Jan, [facility] [place] [facility] [address] [id number] [place] [address]- 2948 Dec, [facility] [place] [facility] [address] [id number] [place] [address]- 6571 Dec, [facility] [place] [facility] [address] [id number] [place] [address]- 4097 Dec, [facility] [place] [facility] [address] [id number] [place] [address]- 2030 Nov, [facility] [place] [facility] [address] [id number] [place] [address]- 5646 Nov, [facility] [place] [facility] [address] [id number] [place] [address]- 0738 Nov, [facility] [place] [facility] [address] [id number] [place] [address]- 4698 Nov, [facility] [place] [facility] [address] [id number] [place] [address]- 1277 Oct, [facility] [place] [facility] [address] [id number] [place] [address]- 4300 Oct, [facility] [place] [facility] [address] [id number] [place] [address]- 2240 Oct, [facility] [place] [facility] [address] [id number] [place] [address]- 6241 Oct, [facility] [place] [facility] [address] [id number] [place] [address]- 5652 Oct, [facility] [place] [facility] [address] [id number] [place] [address]- 9512 Sep, [facility] [place] [facility] [address] [id number] [place] [address]- 8729 Sep, [facility] [place] [facility] [address] [id number] [place] [address]- 9913 Sep, [facility] [address] [id number] [place] [address]- 2599 Sep, [facility] [place] [facility] [address] [id number] [place] [address]- 7241 Sep, [facility] [place] [facility] [address] [id number] [place] [address]- 2720 Sep, [facility] [place] [facility] [address] [id number] [place] [address]- 3932 Sep, [facility] [place] [facility] [address] [id number] [place] [address]- 2061 Aug, [facility] [place] [facility] [address] [id number] [place] [address]- 4948 Aug, [facility] [place] [facility] [address] [id number] [place] [address]- 5479 July, [facility] [place] [facility] [address] [id number] [place] [address]- 1441 Jun, [facility] [place] [facility] [address] [id number] [place] [address]- 2008 Jun, [facility] [place] [facility] [address] [id number] [place] [address]- 5351 Jun, [facility] [place] [facility] [address] [id number] [place] [address]- 5056 Apr, [facility] [place] [facility] [address] [id number] [place] [address]- 5588 Apr, [facility] [place] [facility] [address] [id number] [place] [address]- 3901 Apr, [facility] [place] [facility] [address] [id number] [place] [address]- 6922 Mar, [facility] [place] [facility] [address] [id number] [place] [address]- 3573 Mar, [facility] [place] [facility] [address] [id number] [place] [address]- 9425 2012 [facility] [address] [id number] [place] [address]- 7867 09 Mar, 2012 [facility] [place] [facility] [address] [id number] [place] [address]- 1308 07 Mar, 2012 [facility] [address] [id number] [place] [address]- 3018 14 Feb, 2012 [facility] [place] [facility] [address] [id number] [place] [address]- 1808 14 Feb, 2012 [facility] [address] [id number] [place] [address]- 5705 13 Jan, 2012 [facility] [place] [facility] [address] [id number] [place] [address]- 2336 13 Jan, 2012 [facility] [place] [facility] [address] [id number] [place] [address]- 2333 Jan, [facility] [address] [id number] [place] [address]- 8946 13 Jan, 2012 [facility] [place] [facility] [address] [id number] [place] [address]- 8093 Jan, [facility] [address] [id number] [place] [address]- 4974 07 Jan, 2012 [facility] [place] [facility] [address] [id number] [place] [address]- 6100 Jan, [facility] [place] [facility] [address] [id number] [place] [address]- 3738 Dec, [facility] [place] [facility] [address] [id number] [place] [address]- 3964 Dec, [facility] [place] [facility] [address] [id number] [place] [address]- 2026 Dec, [facility] [place] [facility] [address] [id number] [place] [address]- 0336 Dec, [facility] [place] [facility] [address] [id number] [place] [address]- 4379 Dec, [facility] [place] [facility] [address] [id number] [place] [address]- 4593 Dec, [facility] [place] [facility] [address] [id number] [place] [address]- 5238 Dec, [facility] [place] [facility] [address] [id number] [place] [address]- 7997 Dec, [facility] [place] [facility] [address] [id number] [place] Dec, [facility] [place] [facility] [address] [id number] [place] [address]- 1642 Dec, [facility] [place] [facility] [address] [id number] [place] [address]- 5298 Oct, [facility] [place] [facility] [address] [id number] [place] [address]- 6567 Oct, [facility] [place] [facility] [address] [id number] [place] [address]- 9727 Aug, [facility] [place] [facility] [address] [id number] [place] [address]- 5241 Aug, [facility] [place] [facility] [address] [id number] [place] [address]- 7935 July, [facility] [place] [facility] [address] [id number] [place] [address]- 2085 Jun, [facility] [place] [facility] [address] [id number] [place] [address]- 8884 Jun, [facility] [place] [facility] [address] [id number] [place] [address]- 8956 May, [facility] [place] [facility] [address] [id number] [place] [address]- 5533 Apr, [facility] [place] [facility] [address] [id number] [place] [address]- 2902 16 Apr, 2011 [facility] [address] [id number] [place] [address]- 9896 19 Mar, 2011 [facility] [place] [facility] [address] [id number] [place] [address]- 8686 16 Mar, 2011 [facility] [address] [id number] [place] [address]- 2706 Feb, [facility] [place] [facility] [address] [id number] [place] [address]- 9777 15 Feb, 2011 [facility] [place] [facility] [address] [id number] [place] [address]- 8487 13 Feb, 2011 [facility] [place] [facility] [address] [id number] [place] [address]- 8844 13 Feb, 2011 [facility] [address] [id number] [place] [address]- 0403 Jan, [facility] [place] [facility] [address] [id number] [place] [address]- 4751 17 Dec, 2010 [facility] [place] [facility] [address] [id number] [place] [address]- 6946 Feb, [facility] [place] [facility] [address] [facility] [id number] [place] [address]- 8117 Feb, [facility] [place] [facility] [address] [id number] [place] [address]- 0930 Feb, [facility] [place] [facility] [address] [id number] [place] [address]- 1789 Feb, [facility] [place] [facility] [address] [id number] [place] [address]- 5060 15 Dec, 2009 [facility] [place] [facility] [address] [id number] [place] [address]- 1627 15 Dec, 2009 [facility] [place] [facility] [address] [id number] [place] [address]- 8920 Oct, [facility] [address] [facility] [id number] [place] [address]- 2546 Jun, [facility] [address] [facility] [id number] [place] [address]- 2546 Feb, [facility] [address] [facility] [id number] [place] [address]- 2546 Feb, [facility] [address] [id number] [place] [address]- 2546 Feb, [facility] [address] [facility] [id number] [place] [address]- 7816 Dec, IMMUNIZATIONS No Known Immunizations SOCIAL HISTORY [...]
--- OUTSIDE RECORDS SUMMARY | 2018-08-02 08:56 | XMS REPORT ---
Author Author KIANA ASHLEY [facility] Address [address] [place] [address] Care Team Providers Care Senior Fire Protection Engineer Name Role Phone ELMO BRUNOY Unavailable PROBLEMS Type Condition ICD9-CM Code [id number] Code Onset Dates Condition Status SNOMED Code Problem Generalized anxiety disorder F41.1 Active 369759085 Problem 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 Active 017847344 Problem History of DVT (deep vein thrombosis) Z86.718 Active 647072294 Problem Factor V Leiden D68.51 Active 032409103 Problem Hypertriglyceridemia E78.1 Active 123483707 Problem skilled nursing (current) use of anticoagulants Z79.01 Active 876511114 Problem Thyroid nodule E04.1 Active 813873569 Problem Excessive daytime sleepiness G47.19 Active 847640828353 Problem Peripheral edema R60.9 Active 938716050 Problem Pelvic pain R10.2 Active 33213060 Problem Gastroesophageal reflux disease, esophagitis presence not specified K21.9 Active 863927184 Problem Presence of IVC filter Z95.828 Active 749086296 ALLERGIES No Information ENCOUNTERS Encounter Location Date Diagnosis [place] [address] [address] Aug, [facility] [id number] [place] [address] 89769- 4547 Aug, [facility] [id number] [place] [address] 14029- 0796 Aug, Acute pain of left shoulder M25.512 and Thyroid nodule E04.1 [facility] [address] [place] [address] 52349- 8306 July, Superior glenoid labrum lesion of left shoulder, subsequent encounter S43.432D [place] [id number] [place] [address] 71497- 9169 Jun, History of DVT (deep vein thrombosis) Z86.718 [facility] [id number] [place] [address] 61129- 5988 Jun, History of DVT (deep vein thrombosis) Z86.718 [place] [address] [id number] [place] [address] 37442- 7832 Jun, Impingement syndrome, shoulder, left M75.42 [place] [id number] [place] [address] 83542- 6227 May, Subacromial bursitis of left shoulder joint M75.52 [place] [id number] [place] [address] 24939- 1711 May, [place] [id number] [place] [address] 44935- 7126 May, Hypertriglyceridemia E78.1 ; skilled nursing (current) use of anticoagulants Z79.01 and Excessive daytime sleepiness G47.19 [place] [id number] [place] [address] 16007- 9493 May, History of DVT (deep vein thrombosis) Z86.718 ; Generalized anxiety disorder F41.1 ; Hypertriglyceridemia E78.1 ; 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 ; Subacromial bursitis of left shoulder joint M75.52 and Excessive daytime sleepiness G47.19 [place] [address] [place] [address] 88690- 2194 May, [place] [id number] [place] [address] 32901- 0266 May, skilled nursing (current) use of anticoagulants Z79.01 [place] [id number] [place] [address] 14700- 3620 Apr, skilled nursing (current) use of anticoagulants Z79.01 [place] [id number] [place] [address] 53406- 3324 Apr, skilled nursing (current) use of anticoagulants Z79.01 [facility] [address] [place] [address] 38442 2546 Apr, skilled nursing (current) use of anticoagulants Z79.01 [facility] [id number] [place] [address] 55956 2546 Apr, [facility] [address] [address] 2546 Apr, skilled nursing (current) use of anticoagulants Z79.01 [facility] [id number] [place] [address] 52821 2546 13 Apr, 2017 skilled nursing (current) use of anticoagulants Z79.01 [facility] [id number] [place] [address] 61537 2546 Apr, skilled nursing (current) use of anticoagulants Z79.01 [facility] [id number] [place] [address] 45657 2546 Apr, skilled nursing (current) use of anticoagulants Z79.01 [facility] [id number] [place] [address] 44338 2546 Apr, 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 [facility] [id number] [place] [address] 63066 2546 Apr, skilled nursing (current) use of anticoagulants Z79.01 [facility] [id number] [place] [address] 80438 2546 Mar, skilled nursing (current) use of anticoagulants Z79.01 [facility] [id number] [place] [address] 21897 2546 Mar, [facility] [id number] [place] [address] 20821 2546 Mar, 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 [facility] [id number] [place] [address] [id number] Jan, Dental examination Z01.20 [facility] [address] [place] [address] [id number] Jan, [facility] [id number] [place] [address] 29400- 1884 Jan, skilled nursing (current) use of anticoagulants Z79.01 [facility] [id number] [place] [address] 62198- 5729 Jan, History of DVT (deep vein thrombosis) Z86.718 [facility] [address] [place] [id number] [place] [address] 58650- 5735 Jan, Generalized anxiety disorder F41.1 and Peripheral edema R60.9 [facility] [address] [place] [id number] [place] [address] 78805- 5067 Nov, History of DVT (deep vein thrombosis) Z86.718 [facility] [id number] [place] [address] 95815- 2034 Nov, 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 [facility] [address] [place] [address] 93099 -8929 Nov, Acute non-recurrent maxillary sinusitis J01.00 [facility] [address] [place] [address] 30968- 4459 Oct, 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 [facility] [address] [place] [address] 29722- 2068 Oct, Personal history of venous thrombosis and embolism Z86.718 [facility] [id number] [place] [address] 83684- 4967 Sep, [facility] [id number] [place] [address] 52940- 5475 Sep, Personal history of venous thrombosis and embolism Z86.718 [facility] [id number] [place] [address] 07195- 2900 Sep, skilled nursing (current) use of anticoagulants Z79.01 [place] [address] [place] [id number] [place] [address] 06010- 5902 Sep, skilled nursing (current) use of anticoagulants Z79.01 [place] [address] [place] [id number] [place] [address] 97547- 0727 Sep, Generalized anxiety disorder F41.1 and History of DVT (deep vein thrombosis) Z86.718 [place] [address] [place] [id number] [place] [address] 08067- 6995 Aug, History of DVT (deep vein thrombosis) Z86.718 ; Generalized anxiety disorder F41.1 ; 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 ; Pelvic pain R10.2 ; Hypertriglyceridemia E78.1 ; Excessive daytime sleepiness G47.19 ; Colon cancer screening Z12.11 ; Screening for breast cancer Z12.39 ; Peripheral edema R60.9 and Gastroesophageal reflux disease, esophagitis presence not specified K21.9 [place] [address] [place] [address] [id number] [place] [address] 33513- 2111 Aug, [place] [address] [id number] [place] [address] 32520- 8530 July, [place] [address] [place] [address] [id number] [place] [address] 48564- 8951 July, History of DVT (deep vein thrombosis) Z86.718 [place] [address] [place] [address] [id number] [place] [address] 49143- 8582 Jun, Generalized anxiety disorder F41.1 [place] [address] [place] [id number] [place] [address] 85945- 4520 Jun, History of DVT (deep vein thrombosis) Z86.718 [place] [address] [place] [id number] [place] [address] 29787- 8671 Jun, History of DVT (deep vein thrombosis) Z86.718 [place] [address] [place] [address]- 4650 Jun, History of DVT (deep vein thrombosis) Z86.718 [facility] [address] [place] [id number] [place] [address] 48775- 0996 Jun, History of DVT (deep vein thrombosis) Z86.718 [facility] [address] [place] [id number] [place] [address] 31707- 0320 May, History of DVT (deep vein thrombosis) Z86.718 [facility] [address] [id number] [place] [address] 34347- 8855 May, 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 [place] [address] 08293- 0059 May, 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 [place] [address] [place] [id number] [place] [address] 43551- 2518 May, History of DVT (deep vein thrombosis) Z86.718 [facility] [id number] [place] [address] 88540 -5520 Apr, Bacterial conjunctivitis of left eye H10.9 and H/O motion sickness Z87.898 [facility] [address] [place] [address] 96567- 9101 Apr, History of DVT (deep vein thrombosis) Z86.718 [facility] [id number] [place] [address] 66795- 9953 Apr, History of DVT (deep vein thrombosis) Z86.718 [place] [address] [place] [id number] [place] [address] 99970- 9461 Apr, History of DVT (deep vein thrombosis) Z86.718 [facility] [id number] [place] [address] 63403- 9837 14 Apr, 2016 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 [facility] [address], [place] [address]- 8637 Mar, [facility] [address] [id number] [place] [address] 25387- 2016 Mar, skilled nursing (current) use of anticoagulants Z79.01 [facility] [address] [place] [address] 58833 2546 Mar, Hypertriglyceridemia E78.1 and 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 [place] [address] [place] [id number] [place] [address] 68621 2546 Feb, skilled nursing (current) use of anticoagulants Z79.01 [place] [address] [place] [address] [id number] [place] [address] 07408 2546 Feb, skilled nursing (current) use of anticoagulants Z79.01 [place] [address] [id number] [place] [address] 56201- 4226 Feb, 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 [place] [address] [place] [address] 64044 2546 Dec, [place] [address] [id number] [place] [address] 33629- 8846 Nov, [place] [address] [place] [address] 19180- 6366 Nov, History of DVT (deep vein thrombosis) Z86.718 ; Tremulousness R25.1 ; Generalized anxiety disorder F41.1 ; Peripheral edema R60.9 and Hypertriglyceridemia E78.1 [place] [address] [address] 2546 Oct, History of DVT (deep vein thrombosis) Z86.718 [place] [address] [place] [address] 95161 2546 Oct, [place] [address] [place] [address] 18351- 2546 Sep, History of DVT (deep vein thrombosis) Z86.718 [facility] [address] [place] [address] 32739- 5743 Sep, 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 [facility] [id number] [place] [address] 44159- 0271 July, [facility] [id number] [place] [address] 74559- 0008 July, 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 [facility] [address] [id number] [place] [address] 48507- 5674 July, 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 [place] [address] [id number] [place] [address] 97570- 7054 Jun, skilled nursing (current) use of anticoagulants Z79.01 [facility] [id number] [place] [address] 20952 -8164 Jun, Coccyx pain M53.3 ; Encounter for therapeutic drug level monitoring Z51.81 and dye line operator current use 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.01 [facility] [address] [id number] [place] [address] 43770- 9184 May, Abnormal mammogram R92.8 [facility] [id number] [place] [address] 19822 -0381 May, [facility] [id number] [place] [address] 25966 -9459 May, Acute vaginitis N76.0 and Encounter for other screening for malignant neoplasm of breast Z12.39 [place] [address] [id number] [place] [address] 82242- 1773 Apr, [facility] [id number] [place] [address] 06294- 3199 Apr, [facility] [address] [place] [id number] [place] [address] 10795- 8022 Apr, Peripheral edema R60.9 [facility] [id number] [place] [address] 17854 2546 Apr, skilled nursing (current) use of anticoagulants Z79.01 [facility] [address] [place] [id number] [place] [address] 16840 2546 Apr, Peripheral edema R60.9 and 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 [place] [address] [place] [id number] [place] [address] 77886 2546 Apr, skilled nursing (current) use of anticoagulants Z79.01 [place] [address] [place] [id number] [place] [address] 04659 2546 Apr, [place] [id number] [place] [address] 51461 2546 Apr, skilled nursing (current) use of anticoagulants Z79.01 [place] [id number] [place] [address] 95022 2546 Apr, Peripheral edema R60.9 [place] [address] [id number] [place] [address] 96894 2546 Mar, 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 [place] [id number] [place] [address] 93628 2546 Mar, 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 and Hypertriglyceridemia E78.1 [place] [address] [place] [address] 44997 2546 Mar, skilled nursing (current) use of anticoagulants Z79.01 [place] [id number] [place] [address] 81521 2546 Mar, 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 [place] [id number] [place] [address] 73722 2546 Mar, [place] [address] [place] [address]- 9106 Mar, 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 ; Hypertriglyceridemia E78.1 ; Personal history of venous thrombosis and embolism Z86.718 and Lump R22.9 [place] [address] [place] [address] 61793- 8550 Mar, Personal history of venous thrombosis and embolism Z86.718 [place] [id number] [place] [address] 95109- 2476 Mar, Personal history of venous thrombosis and embolism Z86.718 [place] [id number] [place] [address] 63440- 1813 Mar, [place] [id number] [place] [address] 81424- 7600 Dec, Personal history of venous thrombosis and embolism Z86.718 [place] [id number] [place] [address] 08795- 6904 Dec, Personal history of venous thrombosis and embolism V12.51 [place] [id number] [place] [address] 46924- 8874 Nov, Personal history of venous thrombosis and embolism V12.51 [place] [address] [place] [address] 97797- 8394 Nov, Personal history of venous thrombosis and embolism V12.51 [place] [address] [place] [address] 82854- 9010 Nov, Personal history of venous thrombosis and embolism V12.51 [place] [address] [place] [address] 30123- 9714 Nov, Personal history of venous thrombosis and embolism V12.51 [place] [address] [place] [address] 61633- 3871 Nov, [place] [id number] [place] [address] 68948- 0499 Oct, Dysuria 788.1 [facility] [address] [address]- 6173 Oct, Personal history of venous thrombosis and embolism V12.51 [facility] [address], [place] [address]- 5930 Oct, [facility] [address], [place] [address]- 4790 Oct, Personal history of venous thrombosis and embolism V12.51 [facility] [address] [place] [address] 12136- 6824 Sep, Personal history of venous thrombosis and embolism V12.51 [facility] [address] [place] [address] 13788- 5860 Sep, Personal history of venous thrombosis and embolism V12.51 [facility] [address] [place] [address] 26943- 0339 Aug, Personal history of venous thrombosis and embolism V12.51 [facility] [address] [address]- 5388 Aug, Personal history of venous thrombosis and embolism V12.51 [facility] [address] [address]- 4991 Aug, Personal history of venous thrombosis and embolism V12.51 [facility] [address] [address]- 4838 July, Generalized anxiety disorder 300.02 ; Abdominal pain, left lower quadrant 789.04 and Personal history of venous thrombosis and embolism V12.51 [facility] [address] [address]- 2915 Jun, [facility] [address] [address]- 6975 Jun, [facility] [address] [address]- 4885 May, [facility] [place] [facility] [address] [id number] [place] [address]- 9784 May, [facility] [place] [facility] [address] [id number] [place] [address]- 4178 May, [facility] [place] [facility] [address] [id number] [place] [address]- 7497 May, [facility] [place] [facility] [address] [id number] [place] [address]- 6875 May, [facility] [place] [facility] [address] [id number] [place] [address]- 7480 May, [facility] [place] [facility] [address] [id number] [place] [address]- 2016 May, [facility] [place] [facility] [address] [facility] [id number] [place] [address]- 1577 May, [facility] [place] [facility] [address] [id number] [place] [address]- 4514 Apr, [facility] [place] [facility] [address] [id number] [place] [address]- 9767 Apr, [facility] [place] [facility] [address] [facility] [id number] [place] [address]- 4514 Apr, [facility] [place] [facility] [address] [facility] [id number] [place] [address]- 5337 Apr, [facility] [place] [facility] [address] [id number] [address]- 0257 Apr, [facility] [place] [facility] [address] [id number] [place] [address]- 0015 Mar, [facility] [place] [facility] [address] [id number] [place] [address]- 7002 Mar, [facility] [place] [facility] [address] [facility] [id number], [place] [address]- 8601 Mar, [facility] [place] [facility] [address] [id number] [place] [address]- 8939 Mar, [facility] [place] [facility] [address] [id number] [place] [address]- 7073 Mar, [facility] [place] [facility] [address] [id number] [place] [address] Mar, [facility] [place] [facility] [address] [id number] [place] [address] Feb, [facility] [place] [facility] [address] [id number] [place] [address] Feb, [facility] [place] [facility] [address] [id number] [place] [address] Feb, [facility] [place] [facility] [address] [id number] [place] [address] Feb, [facility] [place] [facility] [address] [facility] [id number] [place] [address] Feb, [facility] [place] [facility] [address] [id number] [place] [address] Feb, [facility] [place] [facility] [address] [id number] [place] [address] Feb, [facility] [place] [facility] [address] [id number] [place] [address] Feb, [facility] [place] [facility] [address] [id number] [place] [address] Feb, [facility] [place] [facility] [address] [id number] [place] [address] Feb, [facility] [place] [facility] [address] [id number] [place] [address] Jan, [facility] [place] [facility] [address] [id number] [place] [address] Jan, [facility] [place] [facility] [address] [facility] [id number] [place] [address] Jan, [facility] [place] [facility] [address] [id number] [place] [address] Jan, [facility] [place] [facility] [address] [id number] [place] [address] Jan, [facility] [place] [facility] [address] [id number] [place] [address] Jan, [facility] [place] [facility] [address] [id number] [place] [address] Jan, [facility] [place] [facility] [address] [id number] [place] [address] Jan, [facility] [place] [facility] [address] [id number] [place] [address] Jan, [facility] [place] [facility] [address] [id number] [place] [address]- [address] Jan, [facility] [place] [facility] [address] [id number] [place] [address] Dec, [facility] [place] [facility] [address] [id number] [place] [address] Dec, [facility] [place] [facility] [address] [id number] [place] [address] Dec, [facility] [place] [facility] [address] [id number] [place] [address] Dec, [facility] [place] [facility] [address] [id number] [place] [address] Dec, [facility] [place] [facility] [address] [id number] [place] [address] Dec, [facility] [place] [facility] [address] [id number] [place] [address] Dec, [facility] [place] [facility] [address] [id number] [place] [address] Dec, [facility] [place] [facility] [address] [id number] [place] [address] Dec, [facility] [place] [facility] [address] [id number] [place] [address]- 8396 Dec, [facility] [place] [facility] [address] [id number] [place] [address] 1871 Dec, [facility] [place] [facility] [address] [id number] [place] [address] 8546 Dec, [facility] [place] [facility] [address] [id number] [place] [address]- 5256 Dec, [facility] [place] [facility] [address] [id number] [place] [address]- 6072 Dec, [facility] [place] [facility] [address] [id number] [place] [address]- 5727 Dec, [facility] [place] [facility] [address] [id number] [place] [address]- 2093 30 Nov, 2013 [facility] [place] [facility] [address] [id number] [place] [address]- 2396 30 Nov, 2013 [facility] [place] [facility] [address] [id number] [place] [address]- 3845 26 Nov, 2013 [facility] [place] [facility] [address] [id number] [place] [address]- 9919 26 Nov, 2013 [facility] [place] [facility] [address] [id number], [place] [address] 24 Sep, 2013 [facility] [place] [facility] [address] [id number] [address] 9691 24 Sep, 2013 [facility] [place] [facility] [address] [id number] [place] [address]- 1484 23 Sep, 2013 [facility] [place] [facility] [address] [id number] [place] [address]- 2728 23 Nov, 2013 [facility] [place] [facility] [address] [id number] [place] [address]- 9695 18 Nov, 2013 [facility] [place] [facility] [address] [id number] [place] [address]- 2381 18 Nov, 2013 [facility] [place] [facility] [address] [id number] [place] [address]- 6636 17 Nov, 2013 [facility] [place] [facility] [address] [id number] [place] [address]- 6816 17 Nov, 2013 [facility] [place] [facility] [address] [id number] [place] [address]- 1286 11 Nov, 2013 [facility] [place] [facility] [address] [id number] [place] [address] 2546 11 Nov, 2013 [facility] [place] [facility] [address] [id number] [place] [address]- 6708 10 Nov, 2013 [facility] [place] [facility] [address] [id number] [place] [address]- 5401 10 Nov, 2013 [facility] [place] [facility] [address] [id number] [place] [address]- 7487 08 Nov, 2013 [facility] [place] [facility] [address] [id number] [place] [address]- 8275 08 Nov, 2013 [facility] [place] [facility] [address] [id number] [place] [address]- 9238 Sep, 2013 [facility] [place] [facility] [address] [id number] [place] [address]- 4653 Sep, [facility] [place] [facility] [address] [id number] [place] [address]- 9403 Sep, 2013 [facility] [place] [facility] [address] [id number] [place] [address]- 6758 Sep, 2013 [facility] [place] [facility] [address] [id number] [place] [address]- 5414 Sep, [facility] [place] [facility] [address] [id number] [place] [address]- 8268 Sep, 2013 [facility] [place] [facility] [address] [id number] [place] [address]- 6215 Aug, [facility] [place] [facility] [address] [id number] [place] [address]- 1767 Aug, [facility] [place] [facility] [address] [id number] [place] [address]- 7924 Aug, [facility] [place] [facility] [address] [id number] [place] [address]- 4023 Aug, [facility] [place] [facility] [address] [id number] [place] [address]- 5011 Aug, [facility] [place] [facility] [address] [id number] [place] [address]- 4790 Aug, [facility] [place] [facility] [address] [id number] [place] [address]- 2229 Aug, [facility] [place] [facility] [address] [id number] [place] [address]- 0872 Aug, [facility] [place] [facility] [address] [id number] [place] [address]- 8864 Aug, [facility] [place] [facility] [address] [id number] [place] [address]- 6364 Aug, [facility] [place] [facility] [address] [id number] [place] [address]- 3547 Aug, [facility] [place] [facility] [address] [id number] [place] [address]- 2316 July, [facility] [place] [facility] [address] [id number] [place] [address]- 2519 July, [facility] [place] [facility] [address] [id number] [place] [address]- 9049 Jun, [facility] [place] [facility] [address] [id number] [place] [address]- 0121 Jun, [facility] [place] [facility] [address] [id number] [place] [address]- 1767 Jun, [facility] [place] [facility] [address] [id number] [place] [address]- 7502 18 Jun, 2013 [facility] [place] [facility] [address] [id number] [place] [address]- 0191 18 Jun, 2013 [facility] [place] [facility] [address] [id number] [place] [address]- 0289 18 Jun, 2013 [facility] [place] [facility] [address] [id number] [place] [address]- 7768 15 Jun, 2013 [facility] [place] [facility] [address] [id number] [place] [address]- 0749 15 Jun, 2013 [facility] [place] [facility] [address] [id number] [place] [address]- 3492 Jun, [facility] [place] [facility] [address] [id number] [place] [address]- 4946 Jun, [facility] [place] [facility] [address] [id number] [place] [address]- 4050 Jun, [facility] [place] [facility] [address] [id number] [place] [address]- 4828 Jun, [facility] [place] [facility] [address] [id number] [place] [address]- 2846 May, [facility] [place] [facility] [address] [id number] [place] [address]- 7282 May, [facility] [place] [facility] [address] [id number] [place] [address]- 9282 May, [facility] [place] [facility] [address] [id number] [place] [address]- 5399 May, [facility] [place] [facility] [address] [id number] [place] [address]- 1921 May, [facility] [place] [facility] [address] [id number] [place] [address]- 6800 19 May, 2013 [facility] [place] [facility] [address] [id number] [place] [address]- 4048 May, [facility] [place] [facility] [address] [id number] [place] [address]- 8852 May, [facility] [place] [facility] [address] [id number] [place] [address]- 4894 May, [facility] [place] [facility] [address] [id number] [place] [address]- 9742 May, [facility] [place] [facility] [address] [id number] [place] [address]- 1027 May, [facility] [place] [facility] [address] [id number] [place] [address]- 7009 May, [facility] [place] [facility] [address] [id number] [place] [address]- 8098 Apr, [facility] [place] [facility] [address] [facility] [id number] [place] [address]- 9062 Apr, [facility] [place] [facility] [address] [id number] [place] [address]- 0401 Apr, [facility] [place] [facility] [address] [id number] [place] [address]- 8741 Apr, [facility] [place] [facility] [address] [facility] [id number] [place] [address]- 4765 Apr, [facility] [place] [facility] [address] [facility] [id number] [place] [address]- 7620 Apr, [facility] [place] [facility] [address] [facility] [id number] [place] [address]- 7705 Apr, [facility] [place] [facility] [address] [id number] [place] [address]- 0629 Apr, [facility] [place] [facility] [address] [id number] [place] [address]- 7896 Apr, [facility] [place] [facility] [address] [facility] [id number] [place] [address]- 7677 Apr, [facility] [place] [facility] [address] [facility] [id number] [place] [address]- 9944 Apr, [facility] [place] [facility] [address] [id number] [place] [address]- 1276 Apr, [facility] [place] [facility] [address] [id number] [place] [address]- 3783 Apr, 2013 [facility] [place] [facility] [address] [id number] [place] [address]- 6086 Apr, [facility] [place] [facility] [address] [id number] [place] [address]- 6548 Apr, [facility] [place] [facility] [address] [id number] [place] [address]- 3896 Apr, [facility] [place] [facility] [address] [id number] [place] [address]- 7231 Apr, [facility] [place] [facility] [address] [facility] [id number] [place] [address]- 4444 Jan, [facility] [place] [facility] [address] [id number] [place] [address]- 9833 Jan, [facility] [place] [facility] [address] [facility] [id number] [place] [address]- 4772 Jan, [facility] [place] [facility] [address] [facility] [id number] [place] [address]- 5282 Jan, [facility] [place] [facility] [address] [id number] [place] [address]- 2397 Jan, [facility] [place] [facility] [address] [id number] [place] [address]- 9765 Jan, [facility] [place] [facility] [address] [id number] [place] [address]- 5092 Jan, [facility] [place] [facility] [address] [facility] [id number] [place] [address]- 3752 Dec, [facility] [place] [facility] [address] [id number] [place] [address]- 9850 Dec, [facility] [place] [facility] [address] [id number] [place] [address]- 4802 Dec, [facility] [place] [facility] [address] [id number] [place] [address]- 0996 Nov, [facility] [place] [facility] [address] [id number] [place] [address]- 8915 Nov, [facility] [place] [facility] [address] [id number] [place] [address]- 0713 Nov, [facility] [place] [facility] [address] [id number] [place] [address]- 4197 Nov, [facility] [place] [facility] [address] [id number] [place] [address]- 3002 Oct, [facility] [place] [facility] [address] [id number] [place] [address]- 8701 Oct, [facility] [place] [facility] [address] [id number] [place] [address]- 6092 Oct, [facility] [place] [facility] [address] [id number] [place] [address]- 3395 Oct, [facility] [place] [facility] [address] [id number] [place] [address]- 1684 Oct, [facility] [place] [facility] [address] [id number] [place] [address]- 6242 Sep, [facility] [place] [facility] [address] [id number] [place] [address]- 0694 Sep, [facility] [place] [facility] [address] [id number] [place] [address]- 6101 Sep, [facility] [place] [facility] [address] [id number] [place] [address]- 5577 Sep, [facility] [place] [facility] [address] [id number] [place] [address]- 4589 Sep, [facility] [place] [facility] [address] [id number] [place] [address]- 2546 Sep, [facility] [address] [id number] [place] [address]- 2068 Sep, [facility] [address] [id number] [place] [address]- 7324 Aug, [facility] [address] [id number] [place] [address]- 4089 Aug, [facility] [place] [facility] [address] [id number] [place] [address]- 7351 July, [facility] [address] [id number] [place] [address]- 4846 Jun, [facility] [place] [facility] [address] [id number] [place] [address]- 1392 Jun, [facility] [address] [id number] [place] [address]- 3883 Jun, [facility] [place] [facility] [address] [id number] [place] [address]- 4314 Apr, [facility] [address] [id number] [place] [address]- 5683 Apr, [facility] [place] [facility] [address] [id number] [place] [address]- 1559 Apr, [facility] [address] [id number] [place] [address]- 0350 Mar, [facility] [place] [facility] [address] [id number] [place] [address]- 7453 Mar, [facility] [place] [facility] [address] [id number] [place] [address]- 2449 Mar, [facility] [place] [facility] [address] [id number] [place] [address]- 4791 Mar, [facility] [place] [facility] [address] [id number] [place] [address]- 8676 Mar, [facility] [place] [facility] [address] [id number] [place] [address]- 0487 14 Feb, 2012 [facility] [place] [facility] [address] [id number] [place] [address]- 9630 14 Feb, 2012 [facility] [place] [facility] [address] [id number] [place] [address]- 4156 13 Jan, 2012 [facility] [place] [facility] [address] [id number] [place] [address]- 1843 13 Jan, 2012 [facility] [place] [facility] [address] [id number] [place] [address]- 2883 13 Jan, 2012 [facility] [place] [facility] [address] [id number] [place] [address]- 5114 13 Jan, 2012 [facility] [place] [facility] [address] [id number] [place] [address]- 4676 07 Jan, 2012 [facility] [place] [facility] [address] [id number] [place] [address]- 6988 Jan, [facility] [place] [facility] [address] [id number] [place] [address]- 5247 06 Jan, 2012 [facility] [place] [facility] [address] [id number] [place] [address]- 3047 31 Dec, 2011 [facility] [place] [facility] [address] [facility] [id number] [place] [address]- 0421 31 Dec, 2011 [facility] [place] [facility] [address] [id number] [place] [address]- 3831 30 Dec, 2011 [facility] [place] [facility] [address] [id number] [place] [address]- 7898 30 Dec, 2011 [facility] [place] [facility] [address] [id number] [place] [address]- 7606 30 Dec, 2011 [facility] [place] [facility] [address] [facility] [id number] [place] [address]- 9056 30 Dec, 2011 [facility] [place] [facility] [address] [id number] [place] [address]- 6456 Dec, [facility] [place] [facility] [address] [id number] [place] [address]- 8932 Dec, [facility] [place] [facility] [address] [id number] [place] [address]- 2977 Dec, [facility] [place] [facility] [address] [id number] [place] [address]- 0946 Dec, [facility] [place] [facility] [address] [id number] [place] [address]- 8331 Oct, [facility] [place] [facility] [address] [id number] [place] [address]- 6325 Oct, [facility] [place] [facility] [address] [id number] [place] [address]- 9248 Aug, [facility] [place] [facility] [address] [id number] [place] [address]- 1827 Aug, [facility] [place] [facility] [address] [id number] [place] [address]- 9896 July, [facility] [place] [facility] [address] [id number] [place] [address]- 9370 Jun, [facility] [place] [facility] [address] [id number] [place] [address]- 1748 Jun, [facility] [place] [facility] [address] [id number] [place] [address]- 8618 May, [facility] [place] [facility] [address] [id number], [place] [address]- 8951 Apr, [facility] [place] [facility] [address] [id number] [place] [address]- 4738 Apr, [facility] [place] [facility] [address] [id number], [place] [address]- 7336 Mar, [facility] [place] [facility] [address] [id number] [place] [address]- 3856 Mar, [facility] [place] [facility] [address] [id number] [place] [address]- 9948 19 Feb, 2011 [facility] [address] [id number] [place] [address]- 1506 15 Feb, 2011 [facility] [place] [facility] [address] [id number] [place] [address] 2546 13 Feb, 2011 [facility] [address] [id number] [place] [address]- 4696 13 Feb, 2011 [facility] [place] [facility] [address] [id number] [place] [address] 2545 Jan, [facility] [address] [id number] [place] [address]- 5723 17 Dec, 2010 [facility] [address] [id number] [place] [address]- 7105 08 Feb, 2010 [facility] [address] [id number] [place] [address]- 5517 02 Feb, 2010 [facility] [address] [id number] [place] [address]- 8719 Feb, [facility] [place] [facility] [address] [id number] [place] [address]- 4414 Feb, [facility] [address] [facility] [id number] [place] [address]- 5857 15 Dec, 2009 [facility] [place] [facility] [address] [id number] [place] [address]- 0825 15 Dec, 2009 [facility] [place] [facility] [address] [id number] [place] [address]- 0382 Oct, [facility] [place] [facility] [address] [id number] [place] [address]- 2539 15 Jun, 2009 [facility] [place] [facility] [address] [id number] [place] [address] 2549 Feb, [facility] [place] [facility] [address] [id number] [place] [address]- 8324 Feb, [facility] [address] [facility] [id number] [place] [id number] Feb, [facility] [address] [facility] [id number] [place] [id number]887 Dec, IMMUNIZATIONS No Known Immunizations SOCIAL HISTORY Never Assessed REASON FOR VISIT INR Results PLAN OF CARE VITAL SIGNS MEDICATIONS Unknown Medications RESULTS No Results PROCEDURES No Known procedures INSTRUCTIONS MEDICATIONS ADMINISTERED No Known Medications MEDICAL (GENERAL) HISTORY Type Description Date Medical History obesity Medical History Hematologic disorder factor clotting problem Medical History DVT's Surgical History Lap Band 10/2012 Surgical History section 1985, 1987 Surgical History cholecystectomy Surgical History [place] Filter 06/2009 Surgical History Left leg exploratory surgery r/t clot 1987 Surgical History left shoulder surgery 09/14/17 Hospitalization History Ruptured Ovarian Cyst with abd bleeding 11/2009
--- OUTSIDE RECORDS SUMMARY | 2018-08-02 08:57 | XMS REPORT ---
Author Author KIANA ASHLEY [facility] Address [address] [place] [address] Care Team Providers Care Professor Of Family Medicine Name Role Phone GILSON BRUNOHANY Unavailable PROBLEMS Type Condition ICD9-CM Code SIF17-AK Code Onset Dates Condition Status SNOMED Code Problem Generalized anxiety disorder F41.1 Active 952165654 Problem 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 Active 870018886 Problem History of DVT (deep vein thrombosis) Z86.718 Active 284565952 Problem Factor V Leiden D68.51 Active 951854777 Problem Hypertriglyceridemia E78.1 Active 993748607 Problem halfway (current) use of anticoagulants Z79.01 Active 483960313 Problem Thyroid nodule E04.1 Active 463630247 Problem Excessive daytime sleepiness G47.19 Active 307633771867 Problem Peripheral edema R60.9 Active 651388900 Problem Pelvic pain R10.2 Active 92831898 Problem Gastroesophageal reflux disease, esophagitis presence not specified K21.9 Active 781265152 Problem Presence of IVC filter Z95.828 Active 648037329 ALLERGIES No Information ENCOUNTERS Encounter Location Date Diagnosis [place] [address] [address] Aug, [facility] [id number] [place] [address] 34225- 4787 Aug, [facility] [id number] [place] [address] 79289- 4679 Aug, Acute pain of left shoulder M25.512 and Thyroid nodule E04.1 [facility] [address] [place] [address] 44463- 2935 July, Superior glenoid labrum lesion of left shoulder, subsequent encounter S43.432D [place] [id number] [place] [address] 99223- 1078 Jun, History of DVT (deep vein thrombosis) Z86.718 [facility] [id number] [place] [address] 51306- 0209 Jun, History of DVT (deep vein thrombosis) Z86.718 [place] [address] [id number] [place] [address] 11351- 1517 Jun, Impingement syndrome, shoulder, left M75.42 [place] [address] [id number] [place] [address] 42697- 3744 May, Subacromial bursitis of left shoulder joint M75.52 [place] [address] [id number] [place] [address] 52445- 2434 May, [place] [id number] [place] [address] 21326- 1763 May, Hypertriglyceridemia E78.1 ; halfway (current) use of anticoagulants Z79.01 and Excessive daytime sleepiness G47.19 [place] [id number] [place] [address] 45427- 6192 May, History of DVT (deep vein thrombosis) Z86.718 ; Generalized anxiety disorder F41.1 ; Hypertriglyceridemia E78.1 ; 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 ; Subacromial bursitis of left shoulder joint M75.52 and Excessive daytime sleepiness G47.19 [place] [address] [place] [address] 87739- 7700 May, [place] [address] [id number] [place] [address] 27426- 6866 May, halfway (current) use of anticoagulants Z79.01 [place] [id number] [place] [address] 53347- 7684 Apr, halfway (current) use of anticoagulants Z79.01 [place] [id number] [place] [address] 88730- 7177 Apr, halfway (current) use of anticoagulants Z79.01 [facility] [address] [place] [address] 36963 2546 Apr, halfway (current) use of anticoagulants Z79.01 [facility] [id number] [place] [address] 79635 2546 Apr, [facility] [address] 21891 2546 Apr, halfway (current) use of anticoagulants Z79.01 [facility] [id number] [place] [address] 38616 2546 13 Apr, 2017 halfway (current) use of anticoagulants Z79.01 [facility] [id number] [place] [address] 90075 2546 Apr, halfway (current) use of anticoagulants Z79.01 [facility] [id number] [place] [address] 48873 2546 Apr, halfway (current) use of anticoagulants Z79.01 [facility] [id number] [place] [address] 66912 2546 Apr, 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 [facility] [id number] [place] [address] 87146 2546 Apr, halfway (current) use of anticoagulants Z79.01 [facility] [id number] [place] [address] 96063 2546 Mar, halfway (current) use of anticoagulants Z79.01 [facility] [id number] [place] [address] 67217 2546 Mar, [facility] [id number] [place] [address] 21908 2546 Mar, 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 [facility] [id number] [place] [address] [id number] Jan, Dental examination Z01.20 [facility] [address] [place] [address] [id number] Jan, [facility] [id number] [place] [address] 25709- 3737 Jan, halfway (current) use of anticoagulants Z79.01 [facility] [id number] [place] [address] 81088- 6644 Jan, History of DVT (deep vein thrombosis) Z86.718 [facility] [id number] [place] [address] 79337- 4185 Jan, Generalized anxiety disorder F41.1 and Peripheral edema R60.9 [facility] [id number] [place] [address] 44758- 1433 Nov, History of DVT (deep vein thrombosis) Z86.718 [facility] [id number] [place] [address] 93112- 3138 Nov, 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 [facility] [address] [place] [address] 18554 -7161 Nov, Acute non-recurrent maxillary sinusitis J01.00 [facility] [address] [place] [address] 88911- 9291 Oct, 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 [facility] [address] [place] [address] 72800- 1459 Oct, Personal history of venous thrombosis and embolism Z86.718 [facility] [id number] [place] [address] 07105- 0275 Sep, [facility] [id number] [place] [address] 19502- 1911 Sep, Personal history of venous thrombosis and embolism Z86.718 [facility] [id number] [place] [address] 09878- 9319 Sep, halfway (current) use of anticoagulants Z79.01 [place] [address] [id number] [place] [address] 20766- 6577 Sep, halfway (current) use of anticoagulants Z79.01 [place] [address] [place] [id number] [place] [address] 15101- 6181 Sep, Generalized anxiety disorder F41.1 and History of DVT (deep vein thrombosis) Z86.718 [place] [id number] [place] [address] 79268- 9024 Aug, History of DVT (deep vein thrombosis) Z86.718 ; Generalized anxiety disorder F41.1 ; 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 ; Pelvic pain R10.2 ; Hypertriglyceridemia E78.1 ; Excessive daytime sleepiness G47.19 ; Colon cancer screening Z12.11 ; Screening for breast cancer Z12.39 ; Peripheral edema R60.9 and Gastroesophageal reflux disease, esophagitis presence not specified K21.9 [place] [id number] [place] [address] 75016- 2948 Aug, [place] [address] [id number] [place] [address] 72232- 1520 July, [place] [address] [id number] [place] [address] 74666- 0915 July, History of DVT (deep vein thrombosis) Z86.718 [place] [address] [id number] [place] [address] 42384- 4388 Jun, Generalized anxiety disorder F41.1 [place] [address] [id number] [place] [address] 98888- 2118 Jun, History of DVT (deep vein thrombosis) Z86.718 [place] [address] [id number] [place] [address] 09592- 5561 Jun, History of DVT (deep vein thrombosis) Z86.718 [place] [address] [place] [address]- 3397 Jun, History of DVT (deep vein thrombosis) Z86.718 [facility] [id number] [place] [address] 01466- 7708 Jun, History of DVT (deep vein thrombosis) Z86.718 [facility] [id number] [place] [address] 13174- 3279 May, History of DVT (deep vein thrombosis) Z86.718 [facility] [id number] [place] [address] 75284- 5209 May, 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 [place] [address] 83333- 1393 May, 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 [place] [address] [id number] [place] [address] 35694- 3701 May, History of DVT (deep vein thrombosis) Z86.718 [facility] [id number] [place] [address] 27450 -3113 Apr, Bacterial conjunctivitis of left eye H10.9 and H/O motion sickness Z87.898 [facility] [address] [place] [address] 77609- 7449 Apr, History of DVT (deep vein thrombosis) Z86.718 [facility] [id number] [place] [address] 31728- 1299 Apr, History of DVT (deep vein thrombosis) Z86.718 [place] [address] [id number] [place] [address] 78824- 0792 Apr, History of DVT (deep vein thrombosis) Z86.718 [facility] [id number] [place] [address] 32790- 8309 14 Apr, 2016 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 [facility] [address] [address]- 2327 Mar, [place] [address] [id number] [place] [address] 49868- 4096 Mar, halfway (current) use of anticoagulants Z79.01 [place] [address] [place] [address] 99660 2546 Mar, 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 and Hypertriglyceridemia E78.1 [place] [id number] [place] [address] 77868 2546 Feb, halfway (current) use of anticoagulants Z79.01 [place] [address] [id number] [place] [address] 01088 2546 Feb, halfway (current) use of anticoagulants Z79.01 [place] [address] [id number] [place] [address] 82188 2546 Feb, 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 [place] [address] [place] [address] 91891 2546 Dec, [place] [id number] [place] [address] 63803- 3636 Nov, [place] [address] [place] [address] 08331- 7356 Nov, History of DVT (deep vein thrombosis) Z86.718 ; Tremulousness R25.1 ; Generalized anxiety disorder F41.1 ; Peripheral edema R60.9 and Hypertriglyceridemia E78.1 [place] [address] [address] 2546 Oct, History of DVT (deep vein thrombosis) Z86.718 [place] [address] [place] [address] 03959 2546 Oct, [place] [address] [place] [address] 88089- 2546 Sep, History of DVT (deep vein thrombosis) Z86.718 [facility] [address] [place] [address] 21370- 9613 Sep, 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 [facility] [id number] [place] [address] 53845- 5206 July, [facility] [id number] [place] [address] 11366- 1872 July, 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 [facility] [id number] [place] [address] 90506- 9533 July, 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 [place] [id number] [place] [address] 50743- 1060 Jun, halfway (current) use of anticoagulants Z79.01 [facility] [id number] [place] [address] 80935 -1887 Jun, Coccyx pain M53.3 ; Encounter for therapeutic drug level monitoring Z51.81 and family development specialist current use 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.01 [facility] [id number] [place] [address] 28441- 6961 May, Abnormal mammogram R92.8 [facility] [id number] [place] [address] 62372 -7031 May, [facility] [id number] [place] [address] 60834 -3703 May, Acute vaginitis N76.0 and Encounter for other screening for malignant neoplasm of breast Z12.39 [place] [address] [id number] [place] [address] 63035- 1688 Apr, [facility] [id number] [place] [address] 17825- 4916 Apr, [facility] [id number] [place] [address] 76519- 7635 Apr, Peripheral edema R60.9 [facility] [id number] [place] [address] 41756 2546 Apr, halfway (current) use of anticoagulants Z79.01 [facility] [id number] [place] [address] 26008 2546 Apr, Peripheral edema R60.9 and 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 [place] [address] [id number] [place] [address] 59842 2546 Apr, halfway (current) use of anticoagulants Z79.01 [place] [id number] [place] [address] 43217 2546 Apr, [place] [id number] [place] [address] 76942 2546 Apr, halfway (current) use of anticoagulants Z79.01 [place] [id number] [place] [address] 71729 2546 Apr, Peripheral edema R60.9 [place] [id number] [place] [address] 28546 2546 Mar, 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 [place] [id number] [place] [address] 46505 2546 Mar, 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 and Hypertriglyceridemia E78.1 [place] [address] [place] [address] 70417 2546 Mar, halfway (current) use of anticoagulants Z79.01 [place] [id number] [place] [address] 51040 2546 Mar, 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 [place] [id number] [place] [address] 81834 2546 Mar, [place] [address] [place] [address]- 0469 Mar, 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 ; Hypertriglyceridemia E78.1 ; Personal history of venous thrombosis and embolism Z86.718 and Lump R22.9 [place] [address] [place] [address] 25141- 5955 Mar, Personal history of venous thrombosis and embolism Z86.718 [place] [id number] [place] [address] 50941- 1656 Mar, Personal history of venous thrombosis and embolism Z86.718 [place] [id number] [place] [address] 08442- 0583 Mar, [place] [id number] [place] [address] 93038- 0661 Dec, Personal history of venous thrombosis and embolism Z86.718 [place] [id number] [place] [address] 91551- 4515 Dec, Personal history of venous thrombosis and embolism V12.51 [place] [id number] [place] [address] 92251- 7811 Nov, Personal history of venous thrombosis and embolism V12.51 [place] [address] [place] [address] 75472- 0210 Nov, Personal history of venous thrombosis and embolism V12.51 [place] [address] [place] [address] 32253- 3670 Nov, Personal history of venous thrombosis and embolism V12.51 [place] [address] [place] [address] 81088- 2589 Nov, Personal history of venous thrombosis and embolism V12.51 [place] [address] [place] [address] 93845- 1255 Nov, [place] [id number] [place] [address] 43532- 7354 Oct, Dysuria 788.1 [facility] [address] [address]- 4143 Oct, Personal history of venous thrombosis and embolism V12.51 [facility] [address] [address]- 5741 Oct, [facility] [address] [address]- 7242 Oct, Personal history of venous thrombosis and embolism V12.51 [facility] [address] [place] [address] 31695- 6103 Sep, Personal history of venous thrombosis and embolism V12.51 [facility] [address] [place] [address] 89991- 5521 Sep, Personal history of venous thrombosis and embolism V12.51 [facility] [address] [place] [address] 44049- 9809 Aug, Personal history of venous thrombosis and embolism V12.51 [facility] [address] [address]- 0169 Aug, Personal history of venous thrombosis and embolism V12.51 [facility] [address] [address]- 5597 Aug, Personal history of venous thrombosis and embolism V12.51 [facility] [address] [address]- 5745 July, Generalized anxiety disorder 300.02 ; Abdominal pain, left lower quadrant 789.04 and Personal history of venous thrombosis and embolism V12.51 [facility] [address] [address]- 3400 Jun, [facility] [address] [address]- 7289 Jun, [facility] [address] [address]- 1192 May, [facility] [place] [facility] [address] [id number] [place] [address]- 1873 May, [facility] [place] [facility] [address] [id number] [place] [address]- 9393 May, [facility] [place] [facility] [address] [id number] [place] [address]- 2833 May, [facility] [place] [facility] [address] [id number] [place] [address]- 8569 May, [facility] [place] [facility] [address] [id number] [place] [address]- 5429 May, [facility] [place] [facility] [address] [id number] [place] [address]- 0592 May, [facility] [place] [facility] [address] [facility] [id number] [place] [address]- 2341 May, [facility] [place] [facility] [address] [id number] [place] [address]- 4782 Apr, [facility] [place] [facility] [address] [id number] [place] [address]- 2744 Apr, [facility] [place] [facility] [address] [facility] [id number] [place] [address]- 4838 Apr, [facility] [place] [facility] [address] [facility] [id number] [place] [address]- 8665 Apr, [facility] [place] [facility] [address] [id number] [address]- 2152 Apr, [facility] [place] [facility] [address] [id number] [place] [address]- 1145 Mar, [facility] [place] [facility] [address] [id number] [place] [address]- 4214 Mar, [facility] [place] [facility] [address] [facility] [id number] [address]- 3076 Mar, [facility] [place] [facility] [address] [id number] [place] [address]- 0888 Mar, [facility] [place] [facility] [address] [id number] [place] [address]- 2800 Mar, [facility] [place] [facility] [address] [id number] [place] [address]- 7007 Mar, [facility] [place] [facility] [address] [id number] [place] [address]- 9288 Feb, [facility] [place] [facility] [address] [id number] [place] [address]- 0768 Feb, [facility] [place] [facility] [address] [id number] [place] [address]- 5801 Feb, [facility] [place] [facility] [address] [id number] [place] [address]- 0969 Feb, [facility] [place] [facility] [address] [facility] [id number] [place] [address]- 1248 Feb, [facility] [place] [facility] [address] [id number] [place] [address]- 6326 Feb, [facility] [place] [facility] [address] [id number] [place] [address]- 2937 Feb, [facility] [place] [facility] [address] [id number] [place] [address]- 7345 Feb, [facility] [place] [facility] [address] [id number] [place] [address]- 0481 Feb, [facility] [place] [facility] [address] [id number] [place] [address]- 7195 Feb, [facility] [place] [facility] [address] [id number] [place] [address]- 0842 Jan, [facility] [place] [facility] [address] [id number] [place] [address]- 5348 Jan, [facility] [place] [facility] [address] [facility] [id number] [place] [address]- 9048 Jan, [facility] [place] [facility] [address] [id number] [place] [address]- 6642 Jan, [facility] [place] [facility] [address] [id number] [place] [address] Jan, [facility] [place] [facility] [address] [id number] [place] [address] Jan, [facility] [place] [facility] [address] [id number] [place] [address] Jan, [facility] [place] [facility] [address] [id number] [place] [address] Jan, [facility] [place] [facility] [address] [id number] [place] [address] Jan, [facility] [place] [facility] [address] [id number] [place] [address] Jan, [facility] [place] [facility] [address] [id number] [place] [address] Dec, [facility] [place] [facility] [address] [id number] [place] [address] Dec, [facility] [place] [facility] [address] [id number] [place] [address] Dec, [facility] [place] [facility] [address] [id number] [place] [address] Dec, [facility] [place] [facility] [address] [id number] [place] [address] Dec, [facility] [place] [facility] [address] [id number] [place] [address] Dec, [facility] [place] [facility] [address] [id number] [place] [address] Dec, [facility] [place] [facility] [address] [id number] [place] [address] Dec, [facility] [place] [facility] [address] [id number] [place] [address] Dec, [facility] [place] [facility] [address] [id number] [place] [address] Dec, [facility] [place] [facility] [address] [id number] [place] [address] Dec, [facility] [place] [facility] [address] [id number] [place] [address] Dec, [facility] [place] [facility] [address] [id number] [place] [address] Dec, [facility] [place] [facility] [address] [id number] [place] [address] Dec, [facility] [place] [facility] [address] [id number] [place] [address] Dec, [facility] [place] [facility] [address] [id number] [place] [address] 30 Nov, 2013 [facility] [place] [facility] [address] [id number] [place] [address] 30 Nov, 2013 [facility] [place] [facility] [address] [id number] [place] [address] 6265 26 Nov, 2013 [facility] [place] [facility] [address] [id number] [place] [address] 1997 26 Nov, 2013 [facility] [place] [facility] [address] [id number] [address] 24 Sep, 2013 [facility] [place] [facility] [address] [id number] [place] [address] 9[address] 24 Sep, 2013 [facility] [place] [facility] [address] [id number] [place] [address]- 6026 23 Sep, 2013 [facility] [place] [facility] [address] [id number] [place] [address]- 7577 23 Nov, 2013 [facility] [place] [facility] [address] [id number] [place] [address]- 8585 18 Nov, 2013 [facility] [place] [facility] [address] [id number] [place] [address]- 6562 18 Nov, 2013 [facility] [place] [facility] [address] [id number] [place] [address]- 4046 17 Nov, 2013 [facility] [place] [facility] [address] [id number] [place] [address]- 4526 17 Nov, 2013 [facility] [place] [facility] [address] [id number] [place] [address]- 2526 11 Nov, 2013 [facility] [place] [facility] [address] [id number] [place] [address] 2546 11 Nov, 2013 [facility] [place] [facility] [address] [id number] [place] [address]- 9932 10 Nov, 2013 [facility] [place] [facility] [address] [id number] [place] [address]- 7528 10 Nov, 2013 [facility] [place] [facility] [address] [id number] [place] [address]- 8734 08 Nov, 2013 [facility] [place] [facility] [address] [id number] [place] [address]- 8679 08 Nov, 2013 [facility] [place] [facility] [address] [id number] [place] [address]- 5468 Sep, 2013 [facility] [place] [facility] [address] [id number] [place] [address]- 8123 Sep, [facility] [place] [facility] [address] [id number] [place] [address]- 7931 Sep, 2013 [facility] [place] [facility] [address] [id number] [place] [address]- 6931 Sep, 2013 [facility] [place] [facility] [address] [id number] [place] [address]- 8667 Sep, [facility] [place] [facility] [address] [id number] [place] [address]- 4603 Sep, 2013 [facility] [place] [facility] [address] [id number] [place] [address]- 4592 Aug, [facility] [place] [facility] [address] [id number] [place] [address]- 9193 Aug, [facility] [place] [facility] [address] [id number] [place] [address]- 6800 Aug, [facility] [place] [facility] [address] [id number] [place] [address]- 4090 Aug, [facility] [place] [facility] [address] [id number] [place] [address]- 9052 Aug, [facility] [place] [facility] [address] [id number] [place] [address]- 6073 Aug, [facility] [place] [facility] [address] [id number] [place] [address]- 2246 Aug, [facility] [place] [facility] [address] [id number] [place] [address]- 6183 Aug, [facility] [place] [facility] [address] [id number] [place] [address]- 9002 Aug, [facility] [place] [facility] [address] [id number] [place] [address]- 7876 Aug, [facility] [place] [facility] [address] [id number] [place] [address]- 9755 Aug, [facility] [place] [facility] [address] [id number] [place] [address]- 7552 July, [facility] [place] [facility] [address] [id number] [place] [address]- 1807 July, [facility] [place] [facility] [address] [id number] [place] [address]- 9893 Jun, [facility] [place] [facility] [address] [id number] [place] [address]- 7652 Jun, [facility] [place] [facility] [address] [id number] [place] [address]- 9181 Jun, [facility] [place] [facility] [address] [id number] [place] [address]- 2877 18 Jun, 2013 [facility] [place] [facility] [address] [id number] [place] [address]- 5746 18 Jun, 2013 [facility] [place] [facility] [address] [id number] [place] [address]- 3949 18 Jun, 2013 [facility] [place] [facility] [address] [id number] [place] [address]- 1348 15 Jun, 2013 [facility] [place] [facility] [address] [id number] [place] [address]- 2705 15 Jun, 2013 [facility] [place] [facility] [address] [id number] [place] [address]- 2241 Jun, [facility] [place] [facility] [address] [id number] [place] [address]- 2472 Jun, [facility] [place] [facility] [address] [id number] [place] [address]- 7548 Jun, [facility] [place] [facility] [address] [id number] [place] [address]- 4059 Jun, [facility] [place] [facility] [address] [id number] [place] [address] 1947 May, [facility] [place] [facility] [address] [id number] [place] [address]- 1153 May, [facility] [place] [facility] [address] [id number] [place] [address]- 0695 May, [facility] [place] [facility] [address] [id number] [place] [address]- 1199 May, [facility] [place] [facility] [address] [id number] [place] [address]- 7542 May, [facility] [place] [facility] [address] [id number] [place] [address]- 0795 19 May, 2013 [facility] [place] [facility] [address] [id number] [place] [address]- 0087 May, [facility] [place] [facility] [address] [id number] [place] [address]- 4585 May, [facility] [place] [facility] [address] [id number] [place] [address]- 2576 May, [facility] [place] [facility] [address] [id number] [place] [address]- 9744 May, [facility] [place] [facility] [address] [id number] [place] [address]- 3731 May, [facility] [place] [facility] [address] [id number] [place] [address]- 6455 May, [facility] [place] [facility] [address] [id number] [place] [address]- 2498 Apr, [facility] [place] [facility] [address] [facility] [id number] [place] [address]- 0357 Apr, [facility] [place] [facility] [address] [id number] [place] [address]- 9667 Apr, [facility] [place] [facility] [address] [id number] [place] [address]- 0028 Apr, [facility] [place] [facility] [address] [facility] [id number] [place] [address]- 2803 Apr, [facility] [place] [facility] [address] [facility] [id number] [place] [address]- 4973 Apr, [facility] [place] [facility] [address] [facility] [id number] [place] [address]- 9383 Apr, [facility] [place] [facility] [address] [id number] [place] [address]- 5013 Apr, [facility] [place] [facility] [address] [id number] [place] [address]- 4471 Apr, [facility] [place] [facility] [address] [facility] [id number] [place] [address]- 4029 Apr, [facility] [place] [facility] [address] [facility] [id number] [place] [address]- 1402 Apr, [facility] [place] [facility] [address] [id number] [place] [address]- 0026 Apr, [facility] [place] [facility] [address] [id number] [place] [address]- 2130 Apr, 2013 [facility] [place] [facility] [address] [id number] [place] [address]- 6286 Apr, [facility] [place] [facility] [address] [id number] [place] [address]- 1989 Apr, [facility] [place] [facility] [address] [id number] [place] [address]- 9532 Apr, [facility] [place] [facility] [address] [id number] [place] [address]- 1921 Apr, [facility] [place] [facility] [address] [facility] [id number] [place] [address]- 7887 Jan, [facility] [place] [facility] [address] [id number] [place] [address]- 7493 Jan, [facility] [place] [facility] [address] [facility] [id number] [place] [address]- 8785 Jan, [facility] [place] [facility] [address] [facility] [id number] [place] [address]- 7977 Jan, [facility] [place] [facility] [address] [id number] [place] [address]- 2089 Jan, [facility] [place] [facility] [address] [id number] [place] [address]- 4811 Jan, [facility] [place] [facility] [address] [id number] [place] [address]- 3895 Jan, [facility] [place] [facility] [address] [facility] [id number] [place] [address]- 8251 Dec, [facility] [place] [facility] [address] [id number] [place] [address]- 7503 Dec, [facility] [place] [facility] [address] [id number] [place] [address]- 7853 Dec, [facility] [place] [facility] [address] [id number] [place] [address]- 6045 Nov, [facility] [place] [facility] [address] [id number] [place] [address]- 3069 Nov, [facility] [place] [facility] [address] [id number] [place] [address]- 7208 Nov, [facility] [place] [facility] [address] [id number] [place] [address]- 6497 Nov, [facility] [place] [facility] [address] [id number] [place] [address]- 0160 Oct, [facility] [place] [facility] [address] [id number] [place] [address]- 8767 Oct, [facility] [place] [facility] [address] [id number] [place] [address]- 8823 Oct, [facility] [place] [facility] [address] [id number] [place] [address]- 4551 Oct, [facility] [place] [facility] [address] [id number] [place] [address]- 2845 Oct, [facility] [place] [facility] [address] [id number] [place] [address]- 3636 Sep, [facility] [place] [facility] [address] [id number] [place] [address]- 8968 Sep, [facility] [place] [facility] [address] [id number] [place] [address]- 9199 Sep, [facility] [place] [facility] [address] [id number] [place] [address]- 4375 Sep, [facility] [place] [facility] [address] [id number] [place] [address]- 2428 Sep, [facility] [place] [facility] [address] [id number] [place] [address]- 2546 Sep, [facility] [place] [facility] [address] [id number] [place] [address]- 1422 Sep, [facility] [place] [facility] [address] [id number] [place] [address]- 6004 Aug, [facility] [place] [facility] [address] [id number] [place] [address]- 8382 Aug, [facility] [place] [facility] [address] [id number] [place] [address]- 6732 July, [facility] [place] [facility] [address] [id number] [place] [address]- 7817 Jun, [facility] [place] [facility] [address] [id number] [place] [address]- 9988 Jun, [facility] [place] [facility] [address] [id number] [place] [address]- 6692 Jun, [facility] [place] [facility] [address] [id number] [place] [address]- 9756 Apr, [facility] [place] [facility] [address] [id number] [place] [address]- 0913 Apr, [facility] [place] [facility] [address] [id number] [place] [address]- 9614 Apr, [facility] [place] [facility] [address] [id number] [place] [address]- 4863 Mar, [facility] [place] [facility] [address] [id number] [place] [address]- 2658 Mar, [facility] [place] [facility] [address] [id number] [place] [address]- 7626 Mar, [facility] [place] [facility] [address] [id number] [place] [address]- 0854 Mar, [facility] [place] [facility] [address] [id number] [place] [address]- 0226 Mar, [facility] [place] [facility] [address] [id number] [place] [address]- 0812 14 Feb, 2012 [facility] [place] [facility] [address] [id number] [place] [address]- 7803 14 Feb, 2012 [facility] [place] [facility] [address] [id number] [place] [address]- 0866 13 Jan, 2012 [facility] [place] [facility] [address] [id number] [place] [address]- 3961 13 Jan, 2012 [facility] [place] [facility] [address] [id number] [place] [address]- 0148 13 Jan, 2012 [facility] [place] [facility] [address] [id number] [place] [address]- 4458 13 Jan, 2012 [facility] [place] [facility] [address] [id number] [place] [address]- 8597 07 Jan, 2012 [facility] [place] [facility] [address] [id number] [place] [address]- 2360 Jan, [facility] [place] [facility] [address] [id number] [place] [address]- 9299 06 Jan, 2012 [facility] [place] [facility] [address] [id number] [place] [address]- 7681 31 Dec, 2011 [facility] [place] [facility] [address] [facility] [id number] [place] [address]- 8098 31 Dec, 2011 [facility] [place] [facility] [address] [id number] [place] [address]- 9030 30 Dec, 2011 [facility] [place] [facility] [address] [id number] [place] [address]- 3744 30 Dec, 2011 [facility] [place] [facility] [address] [id number] [place] [address]- 1936 30 Dec, 2011 [facility] [place] [facility] [address] [facility] [id number] [place] [address]- 3996 30 Dec, 2011 [facility] [place] [facility] [address] [id number] [place] [address]- 7492 Dec, [facility] [place] [facility] [address] [id number] [place] [address]- 1428 Dec, [facility] [place] [facility] [address] [id number] [place] [address]- 7241 Dec, [facility] [place] [facility] [address] [id number] [place] [address]- 6157 Dec, [facility] [place] [facility] [address] [id number] [place] [address]- 1919 Oct, [facility] [place] [facility] [address] [id number] [place] [address]- 9132 Oct, [facility] [place] [facility] [address] [id number] [place] [address]- 2509 Aug, [facility] [place] [facility] [address] [id number] [place] [address]- 5236 Aug, [facility] [place] [facility] [address] [id number] [place] [address]- 5578 July, [facility] [place] [facility] [address] [id number] [place] [address]- 4440 Jun, [facility] [place] [facility] [address] [id number] [place] [address]- 4397 Jun, [facility] [place] [facility] [address] [id number] [place] [address]- 9378 May, [facility] [place] [facility] [address] [id number] [place] [address]- 5278 Apr, [facility] [place] [facility] [address] [id number] [place] [address]- 6624 Apr, [facility] [place] [facility] [address] [id number] [place] [address]- 7946 Mar, [facility] [place] [facility] [address] [id number] [place] [address]- 0346 Mar, [facility] [place] [facility] [address] [id number] [place] [address]- 4806 19 Feb, 2011 [facility] [address] [id number] [place] [address]- 5176 15 Feb, 2011 [facility] [place] [facility] [address] [id number] [place] [address] 2546 13 Feb, 2011 [facility] [place] [facility] [address] [id number] [place] [address]- 6456 13 Feb, 2011 [facility] [place] [facility] [address] [id number] [place] [address] 2549 Jan, [facility] [address] [id number] [place] [address]- 9957 17 Dec, 2010 [facility] [place] [facility] [address] [id number] [place] [address]- 7536 08 Feb, 2010 [facility] [address] [id number] [place] [address]- 7260 02 Feb, 2010 [facility] [address] [id number] [place] [address]- 2415 Feb, [facility] [place] [facility] [address] [id number] [place] [address]- 4544 Feb, [facility] [address] [facility] [id number] [place] [address]- 5779 15 Dec, 2009 [facility] [place] [facility] [address] [id number] [place] [address]- 7652 15 Dec, 2009 [facility] [place] [facility] [address] [id number] [place] [address]- 5796 Oct, [facility] [place] [facility] [address] [id number] [place] [address]- 6658 15 Jun, 2009 [facility] [place] [facility] [address] [id number] [place] [address] 2548 Feb, [facility] [place] [facility] [address] [id number] [place] [address]- 4938 Feb, [facility] [address] [facility] [id number] [place] [address]- 7482 Feb, [facility] [address] [facility] [id number] [place] [address] 2770 Dec, IMMUNIZATIONS No Known Immunizations SOCIAL HISTORY Never Assessed REASON FOR VISIT Lab (walk-in) PLAN OF CARE VITAL SIGNS MEDICATIONS Unknown Medications RESULTS No Results PROCEDURES Procedure Date Ordered Result Body Site LAB NOT BILLED BY [facility] June 05, 2017 PROTHROMBIN TIME June 05, 2017 VENIPUNCT, ROUTINE* June 05, 2017 INSTRUCTIONS MEDICATIONS ADMINISTERED No Known Medications [...]
--- OUTSIDE RECORDS SUMMARY | 2018-08-02 08:57 | XMS REPORT ---
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
--- OUTSIDE RECORDS SUMMARY | 2018-08-02 08:57 | XMS REPORT ---
Author Author KIANA ASHLEY [facility] Address [address] [place] [address] Care Team Providers Care Audit Clerks Supervisor Name Role Phone GILSON BRUNOHANY Unavailable PROBLEMS Type Condition ICD9-CM Code [id number] Code Onset Dates Condition Status SNOMED Code Problem Generalized anxiety disorder F41.1 Active 660756033 Problem 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 Active 829977998 Problem History of DVT (deep vein thrombosis) Z86.718 Active 853196189 Problem Factor V Leiden D68.51 Active 206269459 Problem Hypertriglyceridemia E78.1 Active 236660888 Problem custodial (current) use of anticoagulants Z79.01 Active 669072748 Problem Thyroid nodule E04.1 Active 850740157 Problem Excessive daytime sleepiness G47.19 Active 704710078586 Problem Peripheral edema R60.9 Active 717431077 Problem Pelvic pain R10.2 Active 92441180 Problem Gastroesophageal reflux disease, esophagitis presence not specified K21.9 Active 552894428 Problem Presence of IVC filter Z95.828 Active 186925355 ALLERGIES No Information ENCOUNTERS Encounter Location Date Diagnosis [place] [address] [address] Aug, [facility] [id number] [place] [address] 38258- 3992 Aug, [facility] [id number] [place] [address] 76218- 6626 Aug, Acute pain of left shoulder M25.512 and Thyroid nodule E04.1 [facility] [address] [place] [address] 24697- 7894 July, Superior glenoid labrum lesion of left shoulder, subsequent encounter S43.432D [place] [id number] [place] [address] 44334- 9426 Jun, History of DVT (deep vein thrombosis) Z86.718 [facility] [id number] [place] [address] 74597- 2248 Jun, History of DVT (deep vein thrombosis) Z86.718 [place] [id number] [place] [address] 73579- 1108 Jun, Impingement syndrome, shoulder, left M75.42 [place] [id number] [place] [address] 36993- 0961 May, Subacromial bursitis of left shoulder joint M75.52 [place] [id number] [place] [address] 80641- 0627 May, [place] [id number] [place] [address] 06615- 2022 May, Hypertriglyceridemia E78.1 ; custodial (current) use of anticoagulants Z79.01 and Excessive daytime sleepiness G47.19 [place] [id number] [place] [address] 59968- 1433 May, History of DVT (deep vein thrombosis) Z86.718 ; Generalized anxiety disorder F41.1 ; Hypertriglyceridemia E78.1 ; 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 ; Subacromial bursitis of left shoulder joint M75.52 and Excessive daytime sleepiness G47.19 [place] [address] [place] [address] 30494- 0171 May, [place] [id number] [place] [address] 41435- 5951 May, custodial (current) use of anticoagulants Z79.01 [place] [id number] [place] [address] 42443- 8863 Apr, custodial (current) use of anticoagulants Z79.01 [place] [id number] [place] [address] 36412- 0968 Apr, custodial (current) use of anticoagulants Z79.01 [facility] [address] [place] [address] 21916 2546 Apr, custodial (current) use of anticoagulants Z79.01 [facility] [id number] [place] [address] 05932 2546 Apr, [facility] [address] 23190 2546 Apr, custodial (current) use of anticoagulants Z79.01 [facility] [id number] [place] [address] 88787 2546 13 Apr, 2017 custodial (current) use of anticoagulants Z79.01 [facility] [id number] [place] [address] 34549 2546 Apr, custodial (current) use of anticoagulants Z79.01 [facility] [id number] [place] [address] 40997 2546 Apr, custodial (current) use of anticoagulants Z79.01 [facility] [id number] [place] [address] 82265 2546 Apr, 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 [facility] [id number] [place] [address] 57773 2546 Apr, custodial (current) use of anticoagulants Z79.01 [facility] [id number] [place] [address] 92710 2546 Mar, custodial (current) use of anticoagulants Z79.01 [facility] [id number] [place] [address] 39931 2546 Mar, [facility] [id number] [place] [address] 64308 2546 Mar, 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 [facility] [id number] [place] [address] [phone] Jan, Dental examination Z01.20 [facility] [id number] [place] [address] [id number] Jan, [facility] [id number] [place] [address] 06199- 5026 Jan, custodial (current) use of anticoagulants Z79.01 [facility] [id number] [place] [address] 23327- 2808 Jan, History of DVT (deep vein thrombosis) Z86.718 [facility] [id number] [place] [address] 41933- 7258 Jan, Generalized anxiety disorder F41.1 and Peripheral edema R60.9 [facility] [id number] [place] [address] 87166- 6781 Nov, History of DVT (deep vein thrombosis) Z86.718 [facility] [id number] [place] [address] 54413- 6439 Nov, 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 [facility] [address] [place] [address] 87158 -6324 Nov, Acute non-recurrent maxillary sinusitis J01.00 [facility] [address] [place] [address] 88707- 7569 Oct, 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 [facility] [address] [place] [address] 77946- 1655 Oct, Personal history of venous thrombosis and embolism Z86.718 [facility] [id number] [place] [address] 00488- 0077 Sep, [facility] [id number] [place] [address] 91222- 9331 Sep, Personal history of venous thrombosis and embolism Z86.718 [facility] [id number] [place] [address] 22031- 0183 Sep, custodial (current) use of anticoagulants Z79.01 [place] [id number] [place] [address] 85214- 4308 Sep, custodial (current) use of anticoagulants Z79.01 [place] [id number] [place] [address] 88982- 3663 Sep, Generalized anxiety disorder F41.1 and History of DVT (deep vein thrombosis) Z86.718 [place] [id number] [place] [address] 31039- 3864 Aug, History of DVT (deep vein thrombosis) Z86.718 ; Generalized anxiety disorder F41.1 ; 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 ; Pelvic pain R10.2 ; Hypertriglyceridemia E78.1 ; Excessive daytime sleepiness G47.19 ; Colon cancer screening Z12.11 ; Screening for breast cancer Z12.39 ; Peripheral edema R60.9 and Gastroesophageal reflux disease, esophagitis presence not specified K21.9 [place] [id number] [place] [address] 37297- 8169 Aug, [place] [id number] [place] [address] 81903- 7526 July, [place] [id number] [place] [address] 39109- 4162 July, History of DVT (deep vein thrombosis) Z86.718 [place] [id number] [place] [address] 04329- 0631 Jun, Generalized anxiety disorder F41.1 [place] [id number] [place] [address] 04629- 3556 Jun, History of DVT (deep vein thrombosis) Z86.718 [place] [id number] [place] [address] 21931- 5278 Jun, History of DVT (deep vein thrombosis) Z86.718 [place] [address] [place] [address]- 0280 Jun, History of DVT (deep vein thrombosis) Z86.718 [facility] [id number] [place] [address] 23448- 0092 Jun, History of DVT (deep vein thrombosis) Z86.718 [facility] [id number] [place] [address] 03413- 1812 May, History of DVT (deep vein thrombosis) Z86.718 [facility] [id number] [place] [address] 18921- 6751 May, 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 [place] [address] 62871- 9534 May, 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 [place] [id number] [place] [address] 12104- 5353 May, History of DVT (deep vein thrombosis) Z86.718 [facility] [id number] [place] [address] 12658 -8269 Apr, Bacterial conjunctivitis of left eye H10.9 and H/O motion sickness Z87.898 [facility] [address] [place] [address] 79187- 6167 Apr, History of DVT (deep vein thrombosis) Z86.718 [facility] [id number] [place] [address] 62446- 0794 Apr, History of DVT (deep vein thrombosis) Z86.718 [place] [id number] [place] [address] 94236- 8634 Apr, History of DVT (deep vein thrombosis) Z86.718 [facility] [id number] [place] [address] 98491- 1136 14 Apr, 2016 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 [facility] [address] [address]- 5423 Mar, [facility] [id number] [place] [address] 62091- 7776 Mar, custodial (current) use of anticoagulants Z79.01 [facility] [id number] [place] [address] 65515 2546 Mar, Hypertriglyceridemia E78.1 and 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 [place] [id number] [place] [address] 29187 2546 Feb, custodial (current) use of anticoagulants Z79.01 [place] [id number] [place] [address] 70267 2546 Feb, custodial (current) use of anticoagulants Z79.01 [place] [id number] [place] [address] 59272- 6956 Feb, 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 [place] [id number] [place] [address] 92455 2546 Dec, [place] [id number] [place] [address] 77966- 8606 Nov, [place] [address] [place] [address] 30598- 8326 Nov, History of DVT (deep vein thrombosis) Z86.718 ; Tremulousness R25.1 ; Generalized anxiety disorder F41.1 ; Peripheral edema R60.9 and Hypertriglyceridemia E78.1 [place] [address], [place] [address] 2546 Oct, History of DVT (deep vein thrombosis) Z86.718 [place] [address] [place] [address] 21844 2546 Oct, [place] [id number] [place] [address] 23435- 2546 Sep, History of DVT (deep vein thrombosis) Z86.718 [facility] [address] [place] [address] 34361- 5498 Sep, 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 [facility] [id number] [place] [address] 05704- 1097 July, [facility] [id number] [place] [address] 80274- 2637 July, 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 [facility] [id number] [place] [address] 23103- 0395 July, 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 [place] [id number] [place] [address] 95086- 5751 Jun, custodial (current) use of anticoagulants Z79.01 [facility] [id number] [place] [address] 80019 -2416 Jun, Coccyx pain M53.3 ; Encounter for therapeutic drug level monitoring Z51.81 and bowling alley manager current use 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.01 [facility] [id number] [place] [address] 45800- 7334 May, Abnormal mammogram R92.8 [facility] [id number] [place] [address] 01985 -9294 May, [facility] [id number] [place] [address] 70097 -2118 May, Acute vaginitis N76.0 and Encounter for other screening for malignant neoplasm of breast Z12.39 [place] [id number] [place] [address] 72604- 7040 Apr, [facility] [id number] [place] [address] 74957- 2076 Apr, [facility] [id number] [place] [address] 22482- 3555 Apr, Peripheral edema R60.9 [facility] [id number] [place] [address] 59862 2546 Apr, custodial (current) use of anticoagulants Z79.01 [facility] [id number] [place] [address] 50740 2546 Apr, Peripheral edema R60.9 and 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 [place] [id number] [place] [address] 99340 2546 Apr, custodial (current) use of anticoagulants Z79.01 [place] [id number] [place] [address] 83470 2546 Apr, [place] [id number] [place] [address] 60789 2546 Apr, custodial (current) use of anticoagulants Z79.01 [place] [id number] [place] [address] 71728 2546 Apr, Peripheral edema R60.9 [place] [id number] [place] [address] 91652 2546 Mar, 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 [place] [id number] [place] [address] 37718 2546 Mar, 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 and Hypertriglyceridemia E78.1 [place] [address] [place] [address] 86135 2546 Mar, custodial (current) use of anticoagulants Z79.01 [place] [id number] [place] [address] 64997 2546 Mar, 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 [place] [id number] [place] [address] 26258 2546 Mar, [place] [address] [place] [address]- 4780 Mar, 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 ; Hypertriglyceridemia E78.1 ; Personal history of venous thrombosis and embolism Z86.718 and Lump R22.9 [place] [address] [place] [address] 67028- 2830 Mar, Personal history of venous thrombosis and embolism Z86.718 [place] [id number] [place] [address] 51991- 6052 Mar, Personal history of venous thrombosis and embolism Z86.718 [place] [id number] [place] [address] 97877- 0352 Mar, [place] [id number] [place] [address] 32969- 9895 Dec, Personal history of venous thrombosis and embolism Z86.718 [place] [id number] [place] [address] 98904- 1605 Dec, Personal history of venous thrombosis and embolism V12.51 [place] [id number] [place] [address] 44210- 4102 Nov, Personal history of venous thrombosis and embolism V12.51 [place] [address] [place] [address] 61087- 7343 Nov, Personal history of venous thrombosis and embolism V12.51 [place] [id number] [place] [address] 71537- 3481 Nov, Personal history of venous thrombosis and embolism V12.51 [place] [address] [place] [address] 88559- 8915 Nov, Personal history of venous thrombosis and embolism V12.51 [place] [address] [place] [address] 04489- 6502 Nov, [place] [id number] [place] [address] 32428- 4377 Oct, Dysuria 788.1 [facility] [address] [address]- 5657 Oct, Personal history of venous thrombosis and embolism V12.51 [facility] [address] [address]- 9981 Oct, [facility] [address] [address]- 1387 Oct, Personal history of venous thrombosis and embolism V12.51 [facility] [id number] [place] [address] 40650- 9254 Sep, Personal history of venous thrombosis and embolism V12.51 [facility] [address] [place] [address] 98220- 8391 Sep, Personal history of venous thrombosis and embolism V12.51 [facility] [address] [place] [address] 65198- 7167 Aug, Personal history of venous thrombosis and embolism V12.51 [facility] [address] [address]- 6146 Aug, Personal history of venous thrombosis and embolism V12.51 [facility] [address] [address]- 3646 Aug, Personal history of venous thrombosis and embolism V12.51 [facility] [address] [address]- 6584 July, Generalized anxiety disorder 300.02 ; Abdominal pain, left lower quadrant 789.04 and Personal history of venous thrombosis and embolism V12.51 [facility] [address] [address]- 3840 Jun, [facility] [address] [address]- 7093 Jun, [facility] [address] [address]- 1549 May, [facility] [place] [facility] [address] [id number] [place] [address]- 6636 May, [facility] [place] [facility] [address] [id number] [place] [address]- 2883 May, [facility] [place] [facility] [address] [id number] [place] [address]- 3024 May, [facility] [place] [facility] [address] [id number] [place] [address]- 6024 May, [facility] [place] [facility] [address] [id number] [place] [address]- 1930 May, [facility] [place] [facility] [address] [id number] [place] [address]- 1802 May, [facility] [place] [facility] [address] [facility] [id number] [place] [address]- 3557 May, [facility] [place] [facility] [address] [id number] [place] [address]- 7881 Apr, [facility] [place] [facility] [address] [id number] [place] [address]- 9540 Apr, [facility] [place] [facility] [address] [facility] [id number] [place] [address]- 1552 Apr, [facility] [place] [facility] [address] [facility] [id number] [place] [address]- 5856 Apr, [facility] [place] [facility] [address] [id number] [address]- 5666 Apr, [facility] [place] [facility] [address] [id number] [place] [address]- 2591 Mar, [facility] [place] [facility] [address] [id number] [place] [address]- 9179 Mar, [facility] [place] [facility] [address] [facility] [id number] [address]- 8744 Mar, [facility] [place] [facility] [address] [id number] [place] [address]- 7938 Mar, [facility] [place] [facility] [address] [id number] [place] [address]- 4027 Mar, [facility] [place] [facility] [address] [id number] [place] [address]- 8077 Mar, [facility] [place] [facility] [address] [id number] [place] [address]- 3427 Feb, [facility] [place] [facility] [address] [id number] [place] [address]- 6979 Feb, [facility] [place] [facility] [address] [id number] [place] [address]- 0364 Feb, [facility] [place] [facility] [address] [id number] [place] [address]- 0588 Feb, [facility] [place] [facility] [address] [facility] [id number] [place] [address]- 2120 Feb, [facility] [place] [facility] [address] [id number] [place] [address]- 2007 Feb, [facility] [place] [facility] [address] [id number] [place] [address]- 2905 Feb, [facility] [place] [facility] [address] [id number] [place] [address] Feb, [facility] [place] [facility] [address] [id number] [place] [address] Feb, [facility] [place] [facility] [address] [id number] [place] [address] Feb, [facility] [place] [facility] [address] [id number] [place] [address] Jan, [facility] [place] [facility] [address] [id number] [place] [address] Jan, [facility] [place] [facility] [address] [facility] [id number] [place] [address] Jan, [facility] [place] [facility] [address] [id number] [place] [address] Jan, [facility] [place] [facility] [address] [id number] [place] [address] Jan, [facility] [place] [facility] [address] [id number] [place] [address] Jan, [facility] [place] [facility] [address] [id number] [place] [address]- [address] Jan, [facility] [place] [facility] [address] [id number] [place] [address] Jan, [facility] [place] [facility] [address] [id number] [place] [address] Jan, [facility] [place] [facility] [address] [id number] [place] [address] Jan, [facility] [place] [facility] [address] [id number] [place] [address]- [address] Dec, [facility] [place] [facility] [address] [id number] [place] [address]- [address] Dec, [facility] [place] [facility] [address] [id number] [place] [address]- [address] Dec, [facility] [place] [facility] [address] [id number] [place] [address] Dec, [facility] [place] [facility] [address] [id number] [place] [address]- [address] Dec, [facility] [place] [facility] [address] [id number] [place] [address]- [address] Dec, [facility] [place] [facility] [address] [id number] [place] [address]- [address] Dec, [facility] [place] [facility] [address] [id number] [place] [address]- [address] Dec, [facility] [place] [facility] [address] [id number] [place] [address]- [address] Dec, [facility] [place] [facility] [address] [id number] [place] [address]- [address] Dec, [facility] [place] [facility] [address] [id number] [place] [address]- [address] Dec, [facility] [place] [facility] [address] [id number] [place] [address]- [address] Dec, [facility] [place] [facility] [address] [id number] [place] [address]- [address] Dec, [facility] [place] [facility] [address] [id number] [place] [address] 2003 Dec, [facility] [place] [facility] [address] [id number] [place] [place] [address] Dec, [facility] [place] [facility] [address] [id number] [place] [address] 1598 30 Nov, 2013 [facility] [place] [facility] [address] [id number] [place] [address] 4754 30 Nov, 2013 [facility] [place] [facility] [address] [id number] [place] [address]- 5637 26 Nov, 2013 [facility] [place] [facility] [address] [id number] [place] [address]- 5515 26 Nov, 2013 [facility] [place] [facility] [address] [id number], [place] [address] 24 Sep, 2013 [facility] [place] [facility] [address] [id number], [place] [address] 24 Sep, 2013 [facility] [place] [facility] [address] [id number] [place] [address]- 4301 23 Sep, 2013 [facility] [place] [facility] [address] [id number] [place] [address]- 8559 23 Nov, 2013 [facility] [place] [facility] [address] [id number] [place] [address]- 2684 18 Nov, 2013 [facility] [place] [facility] [address] [id number] [place] [address]- 0461 18 Nov, 2013 [facility] [place] [facility] [address] [id number] [place] [address]- 9396 17 Nov, 2013 [facility] [place] [facility] [address] [id number] [place] [address]- 4396 17 Nov, 2013 [facility] [place] [facility] [address] [id number] [place] [address]- 3806 11 Nov, 2013 [facility] [place] [facility] [address] [id number] [place] [address] 2546 11 Nov, 2013 [facility] [place] [facility] [address] [id number] [place] [address]- 6040 10 Nov, 2013 [facility] [place] [facility] [address] [id number] [place] [address]- 4992 10 Nov, 2013 [facility] [place] [facility] [address] [id number] [place] [address]- 2732 08 Nov, 2013 [facility] [place] [facility] [address] [id number] [place] [address]- 9358 08 Nov, 2013 [facility] [place] [facility] [address] [id number] [place] [address]- 2338 Sep, 2013 [facility] [place] [facility] [address] [id number] [place] [address]- 8505 Sep, [facility] [place] [facility] [address] [id number] [place] [address]- 1051 Sep, 2013 [facility] [place] [facility] [address] [id number] [place] [address]- 1346 Sep, 2013 [facility] [place] [facility] [address] [id number] [place] [address]- 3033 Sep, [facility] [place] [facility] [address] [id number] [place] [address]- 4492 Sep, 2013 [facility] [place] [facility] [address] [id number] [place] [address]- 4176 Aug, [facility] [place] [facility] [address] [id number] [place] [address]- 7530 Aug, [facility] [place] [facility] [address] [id number] [place] [address]- 1552 Aug, [facility] [place] [facility] [address] [id number] [place] [address]- 6195 Aug, [facility] [place] [facility] [address] [id number] [place] [address]- 5891 Aug, [facility] [place] [facility] [address] [id number] [place] [address]- 3450 Aug, [facility] [place] [facility] [address] [id number] [place] [address]- 0676 Aug, [facility] [place] [facility] [address] [id number] [place] [address]- 7475 Aug, [facility] [place] [facility] [address] [id number] [place] [address]- 6918 Aug, [facility] [place] [facility] [address] [id number] [place] [address]- 0137 Aug, [facility] [place] [facility] [address] [id number] [place] [address]- 5514 Aug, [facility] [place] [facility] [address] [id number] [place] [address]- 8979 July, [facility] [place] [facility] [address] [id number] [place] [address]- 3046 July, [facility] [place] [facility] [address] [id number] [place] [address]- 8031 Jun, [facility] [place] [facility] [address] [id number] [place] [address]- 3302 Jun, [facility] [place] [facility] [address] [id number] [place] [address]- 1817 Jun, [facility] [place] [facility] [address] [id number] [place] [address]- 1236 18 Jun, 2013 [facility] [place] [facility] [address] [id number] [place] [address]- 5873 18 Jun, 2013 [facility] [place] [facility] [address] [id number] [place] [address]- 4302 18 Jun, 2013 [facility] [place] [facility] [address] [id number] [place] [address]- 4725 15 Jun, 2013 [facility] [place] [facility] [address] [id number] [place] [address]- 9996 15 Jun, 2013 [facility] [place] [facility] [address] [id number] [place] [address]- 6416 Jun, [facility] [place] [facility] [address] [id number] [place] [address]- 6155 Jun, [facility] [place] [facility] [address] [id number] [place] [address]- 7927 Jun, [facility] [place] [facility] [address] [id number] [place] [address]- 4258 Jun, [facility] [place] [facility] [address] [id number] [place] [address]- 3232 May, [facility] [place] [facility] [address] [id number] [place] [address]- 2237 May, [facility] [place] [facility] [address] [id number] [place] [address]- 5850 May, [facility] [place] [facility] [address] [id number] [place] [address]- 4006 May, [facility] [place] [facility] [address] [id number] [place] [address]- 0737 May, [facility] [place] [facility] [address] [id number] [place] [address]- 4769 19 May, 2013 [facility] [place] [facility] [address] [id number] [place] [address]- 8484 May, [facility] [place] [facility] [address] [id number] [place] [address]- 7206 May, [facility] [place] [facility] [address] [id number] [place] [address]- 8986 May, [facility] [place] [facility] [address] [id number] [place] [address]- 3154 May, [facility] [place] [facility] [address] [id number] [place] [address]- 5627 May, [facility] [place] [facility] [address] [id number] [place] [address]- 3659 May, [facility] [place] [facility] [address] [id number] [place] [address]- 8210 Apr, [facility] [place] [facility] [address] [facility] [id number] [place] [address]- 1838 Apr, [facility] [place] [facility] [address] [id number] [place] [address]- 9403 Apr, [facility] [place] [facility] [address] [id number] [place] [address]- 2240 Apr, [facility] [place] [facility] [address] [facility] [id number] [place] [address]- 7123 Apr, [facility] [place] [facility] [address] [facility] [id number] [place] [address]- 8791 Apr, [facility] [place] [facility] [address] [facility] [id number] [place] [address]- 4739 Apr, [facility] [place] [facility] [address] [id number] [place] [address]- 2847 Apr, [facility] [place] [facility] [address] [id number] [place] [address]- 5076 Apr, [facility] [place] [facility] [address] [facility] [id number] [place] [address]- 5649 Apr, [facility] [place] [facility] [address] [facility] [id number] [place] [address]- 9563 Apr, [facility] [place] [facility] [address] [id number] [place] [address]- 1906 Apr, [facility] [place] [facility] [address] [id number] [place] [address]- 4554 Apr, 2013 [facility] [place] [facility] [address] [id number] [place] [address]- 4556 Apr, [facility] [place] [facility] [address] [id number] [place] [address]- 4070 Apr, [facility] [place] [facility] [address] [id number] [place] [address]- 7204 Apr, [facility] [place] [facility] [address] [id number] [place] [address]- 9130 Apr, [facility] [place] [facility] [address] [facility] [id number] [place] [address]- 7345 Jan, [facility] [place] [facility] [address] [id number] [place] [address]- 5169 Jan, [facility] [place] [facility] [address] [facility] [id number] [place] [address]- 9640 Jan, [facility] [place] [facility] [address] [facility] [id number] [place] [address]- 4870 Jan, [facility] [place] [facility] [address] [id number] [place] [address]- 3286 Jan, [facility] [place] [facility] [address] [id number] [place] [address]- 9407 Jan, [facility] [place] [facility] [address] [id number] [place] [address]- 5012 Jan, [facility] [place] [facility] [address] [facility] [id number] [place] [address]- 1876 Dec, [facility] [place] [facility] [address] [id number] [place] [address]- 6572 Dec, [facility] [place] [facility] [address] [id number] [place] [address]- 4460 Dec, [facility] [place] [facility] [address] [id number] [place] [address]- 6705 Nov, [facility] [place] [facility] [address] [id number] [place] [address]- 9691 Nov, [facility] [place] [facility] [address] [id number] [place] [address]- 9035 Nov, [facility] [place] [facility] [address] [id number] [place] [address]- 5146 Nov, [facility] [place] [facility] [address] [id number] [place] [address]- 6518 Oct, [facility] [place] [facility] [address] [id number] [place] [address]- 9287 Oct, [facility] [place] [facility] [address] [id number] [place] [address]- 5274 Oct, [facility] [place] [facility] [address] [id number] [place] [address]- 4646 Oct, [facility] [place] [facility] [address] [id number] [place] [address]- 4780 Oct, [facility] [place] [facility] [address] [id number] [place] [address]- 0240 Sep, [facility] [place] [facility] [address] [id number] [place] [address]- 9714 Sep, [facility] [place] [facility] [address] [id number] [place] [address]- 1649 Sep, [facility] [place] [facility] [address] [id number] [place] [address]- 1062 Sep, [facility] [place] [facility] [address] [id number] [place] [address]- 7158 Sep, [facility] [place] [facility] [address] [id number] [place] [address]- 2546 Sep, [facility] [address] [id number] [place] [address]- 7806 Sep, [facility] [address] [id number] [place] [address]- 1418 Aug, [facility] [address] [id number] [place] [address]- 1756 Aug, [facility] [place] [facility] [address] [id number] [place] [address]- 6052 July, [facility] [address] [id number] [place] [address]- 3815 Jun, [facility] [place] [facility] [address] [id number] [place] [address]- 8664 Jun, [facility] [address] [id number] [place] [address]- 5097 Jun, [facility] [place] [facility] [address] [id number] [place] [address]- 5005 Apr, [facility] [address] [id number] [place] [address]- 9498 Apr, [facility] [place] [facility] [address] [id number] [place] [address]- 7680 Apr, [facility] [address] [id number] [place] [address]- 5672 Mar, [facility] [place] [facility] [address] [id number] [place] [address]- 4724 Mar, [facility] [place] [facility] [address] [id number] [place] [address]- 3156 Mar, [facility] [place] [facility] [address] [id number] [place] [address]- 7573 Mar, [facility] [place] [facility] [address] [id number] [place] [address]- 2036 Mar, [facility] [place] [facility] [address] [id number] [place] [address]- 2232 14 Feb, 2012 [facility] [place] [facility] [address] [id number] [place] [address]- 8950 14 Feb, 2012 [facility] [place] [facility] [address] [id number] [place] [address]- 9666 13 Jan, 2012 [facility] [place] [facility] [address] [id number] [place] [address]- 3127 13 Jan, 2012 [facility] [place] [facility] [address] [id number] [place] [address]- 3220 13 Jan, 2012 [facility] [place] [facility] [address] [id number] [place] [address]- 0401 13 Jan, 2012 [facility] [place] [facility] [address] [id number] [place] [address]- 0854 07 Jan, 2012 [facility] [place] [facility] [address] [id number] [place] [address]- 2605 Jan, [facility] [place] [facility] [address] [id number] [place] [address]- 3666 06 Jan, 2012 [facility] [place] [facility] [address] [id number] [place] [address]- 8804 31 Dec, 2011 [facility] [place] [facility] [address] [facility] [id number] [place] [address]- 3162 31 Dec, 2011 [facility] [place] [facility] [address] [id number] [place] [address]- 8080 30 Dec, 2011 [facility] [place] [facility] [address] [id number] [place] [address]- 4218 30 Dec, 2011 [facility] [place] [facility] [address] [id number] [place] [address]- 5636 30 Dec, 2011 [facility] [place] [facility] [address] [facility] [id number] [place] [address]- 7056 30 Dec, 2011 [facility] [place] [facility] [address] [id number] [place] [address]- 4017 Dec, [facility] [place] [facility] [address] [id number] [place] [address]- 9061 Dec, [facility] [place] [facility] [address] [id number] [place] [address]- 2387 Dec, [facility] [place] [facility] [address] [id number] [place] [address]- 7268 Dec, [facility] [place] [facility] [address] [id number] [place] [address]- 9307 Oct, [facility] [place] [facility] [address] [id number] [place] [address]- 0197 Oct, [facility] [place] [facility] [address] [id number] [place] [address]- 4068 Aug, [facility] [place] [facility] [address] [id number] [place] [address]- 9144 Aug, [facility] [place] [facility] [address] [id number] [place] [address]- 7683 July, [facility] [place] [facility] [address] [id number] [place] [address]- 5206 Jun, [facility] [place] [facility] [address] [id number] [place] [address]- 3493 Jun, [facility] [place] [facility] [address] [id number] [place] [address]- 5159 May, [facility] [place] [facility] [address] [id number] [address]- 0394 Apr, [facility] [place] [facility] [address] [id number] [place] [address]- 7471 Apr, [facility] [place] [facility] [address] [id number], [place] [address]- 3416 Mar, [facility] [place] [facility] [address] [id number] [place] [address]- 2256 Mar, [facility] [place] [facility] [address] [id number] [place] [address]- 8860 19 Feb, 2011 [facility] [address] [id number] [place] [address]- 0166 15 Feb, 2011 [facility] [place] [facility] [address] [id number] [place] [address] 2546 13 Feb, 2011 [facility] [address] [id number] [place] [address]- 5476 13 Feb, 2011 [facility] [place] [facility] [address] [id number] [place] [address] 254 Jan, [facility] [address] [id number] [place] [address]- 8884 17 Dec, 2010 [facility] [address] [id number] [place] [address]- 4782 08 Feb, 2010 [facility] [address] [id number] [place] [address]- 6731 02 Feb, 2010 [facility] [address] [id number] [place] [address]- 0074 Feb, [facility] [place] [facility] [address] [id number] [place] [address]- 1363 Feb, [facility] [address] [facility] [id number] [place] [address]- 8339 15 Dec, 2009 [facility] [place] [facility] [address] [id number] [place] [address]- 2150 15 Dec, 2009 [facility] [place] [facility] [address] [id number] [place] [address]- 8815 Oct, [facility] [place] [facility] [address] [id number] [place] [address]- 7536 15 Jun, 2009 [facility] [place] [facility] [address] [id number] [place] [address] 2548 Feb, [facility] [place] [facility] [address] [id number] [place] [address]- 9836 Feb, [facility] [address] [facility] [id number] [place] [id number] [address]88 Feb, [facility] [address] [facility] [id number] [place] [id number]197 Dec, IMMUNIZATIONS No Known Immunizations SOCIAL HISTORY Never Assessed REASON FOR VISIT xray order PLAN OF CARE VITAL SIGNS MEDICATIONS Unknown [...]
--- OUTSIDE RECORDS SUMMARY | 2018-08-02 08:58 | XMS REPORT ---
Author Author KIANA ASHLEY [facility] Address [address] [place] [address] Care Team Providers Care Paste Up Worker Name Role Phone GILSON BRUNOHANY Unavailable PROBLEMS Type Condition ICD9-CM Code JKI66-HB Code Onset Dates Condition Status SNOMED Code Problem Generalized anxiety disorder F41.1 Active 055899664 Problem 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 Active 144165683 Problem History of DVT (deep vein thrombosis) Z86.718 Active 702386564 Problem Factor V Leiden D68.51 Active 326735379 Problem Hypertriglyceridemia E78.1 Active 163415258 Problem USP (current) use of anticoagulants Z79.01 Active 860889088 Problem Thyroid nodule E04.1 Active 094126176 Problem Excessive daytime sleepiness G47.19 Active 781350979391 Problem Peripheral edema R60.9 Active 014950621 Problem Pelvic pain R10.2 Active 99312310 Problem Gastroesophageal reflux disease, esophagitis presence not specified K21.9 Active 742649948 Problem Presence of IVC filter Z95.828 Active 439644763 ALLERGIES No Information ENCOUNTERS Encounter Location Date Diagnosis [place] [address] [address] Aug, [facility] [id number] [place] [address] 84168- 3433 Aug, [facility] [address] [place] [address] 97281- 4451 Aug, Acute pain of left shoulder M25.512 and Thyroid nodule E04.1 [facility] [address] [place] [address] 46986- 1053 July, Superior glenoid labrum lesion of left shoulder, subsequent encounter S43.432D [place] [id number] [place] [address] 79521- 7819 Jun, History of DVT (deep vein thrombosis) Z86.718 [facility] [id number] [place] [address] 50774- 0628 Jun, History of DVT (deep vein thrombosis) Z86.718 [place] [id number] [place] [address] 42083- 8812 Jun, Impingement syndrome, shoulder, left M75.42 [place] [id number] [place] [address] 80362- 5707 May, Subacromial bursitis of left shoulder joint M75.52 [place] [id number] [place] [address] 09651- 7071 May, [place] [id number] [place] [address] 99169- 5640 May, Hypertriglyceridemia E78.1 ; USP (current) use of anticoagulants Z79.01 and Excessive daytime sleepiness G47.19 [place] [id number] [place] [address] 27156- 4945 May, History of DVT (deep vein thrombosis) Z86.718 ; Generalized anxiety disorder F41.1 ; Hypertriglyceridemia E78.1 ; 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 ; Subacromial bursitis of left shoulder joint M75.52 and Excessive daytime sleepiness G47.19 [place] [address] [place] [address] 04223- 4092 May, [place] [id number] [place] [address] 56661- 0485 May, USP (current) use of anticoagulants Z79.01 [place] [id number] [place] [address] 70320- 8728 Apr, USP (current) use of anticoagulants Z79.01 [place] [id number] [place] [address] 39746- 8831 Apr, USP (current) use of anticoagulants Z79.01 [facility] [address] [place] [address] 60367 2546 Apr, USP (current) use of anticoagulants Z79.01 [facility] [id number] [place] [address] 52603 2546 Apr, [facility] [address] [address] 2546 Apr, USP (current) use of anticoagulants Z79.01 [facility] [id number] [place] [address] 56116 2546 13 Apr, 2017 USP (current) use of anticoagulants Z79.01 [facility] [id number] [place] [address] 40537 2546 Apr, USP (current) use of anticoagulants Z79.01 [facility] [id number] [place] [address] 73335 2546 Apr, USP (current) use of anticoagulants Z79.01 [facility] [id number] [place] [address] 66018 2546 Apr, 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 [facility] [id number] [place] [address] 19431 2546 Apr, USP (current) use of anticoagulants Z79.01 [facility] [id number] [place] [address] 40396 2546 Mar, USP (current) use of anticoagulants Z79.01 [facility] [id number] [place] [address] 37771 2546 Mar, [facility] [id number] [place] [address] 22274 2546 Mar, 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 [facility] [id number] [place] [address] [id number] Jan, Dental examination Z01.20 [facility] [address] [place] [address] [id number] Jan, [facility] [id number] [place] [address] 89573- 2910 Jan, USP (current) use of anticoagulants Z79.01 [facility] [id number] [place] [address] 08857- 0026 Jan, History of DVT (deep vein thrombosis) Z86.718 [facility] [id number] [place] [address] 65531- 9859 Jan, Generalized anxiety disorder F41.1 and Peripheral edema R60.9 [facility] [id number] [place] [address] 38579- 1351 Nov, History of DVT (deep vein thrombosis) Z86.718 [facility] [id number] [place] [address] 23186- 2758 Nov, 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 [facility] [address] [place] [address] 10086- 0094 Oct, Personal history of venous thrombosis and embolism Z86.718 [facility] [id number] [place] [address] 68149- 2103 Sep, [facility] [id number] [place] [address] 01949- 9138 Sep, Personal history of venous thrombosis and embolism Z86.718 [facility] [id number] [place] [address] 10933- 0377 Sep, USP (current) use of anticoagulants Z79.01 [place] [address] [id number] [place] [address] 84745- 8421 Sep, USP (current) use of anticoagulants Z79.01 [place] [id number] [place] [address] 91593- 9647 Sep, Generalized anxiety disorder F41.1 and History of DVT (deep vein thrombosis) Z86.718 [place] [id number] [place] [address] 20450- 5507 Aug, History of DVT (deep vein thrombosis) Z86.718 ; Generalized anxiety disorder F41.1 ; 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 ; Pelvic pain R10.2 ; Hypertriglyceridemia E78.1 ; Excessive daytime sleepiness G47.19 ; Colon cancer screening Z12.11 ; Screening for breast cancer Z12.39 ; Peripheral edema R60.9 and Gastroesophageal reflux disease, esophagitis presence not specified K21.9 [place] [id number] [place] [address] 65793- 0983 Aug, [place] [id number] [place] [address] 22428- 9909 July, [place] [id number] [place] [address] 52464- 9573 July, History of DVT (deep vein thrombosis) Z86.718 [place] [id number] [place] [address] 67158- 5172 Jun, Generalized anxiety disorder F41.1 [place] [id number] [place] [address] 83564- 5283 Jun, History of DVT (deep vein thrombosis) Z86.718 [place] [id number] [place] [address] 86210- 4077 Jun, History of DVT (deep vein thrombosis) Z86.718 [place] [address] [place] [address]- 5426 Jun, History of DVT (deep vein thrombosis) Z86.718 [facility] [id number] [place] [address] 01534- 5002 Jun, History of DVT (deep vein thrombosis) Z86.718 [facility] [id number] [place] [address] 57173- 1776 May, History of DVT (deep vein thrombosis) Z86.718 [facility] [id number] [place] [address] 75771- 6024 May, 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 [id number] [place] [address] 21522 -2410 Apr, Bacterial conjunctivitis of left eye H10.9 and H/O motion sickness Z87.898 [facility] [address] [place] [address] 60583- 1027 Apr, History of DVT (deep vein thrombosis) Z86.718 [facility] [id number] [place] [address] 96703- 9724 Apr, History of DVT (deep vein thrombosis) Z86.718 [place] [id number] [place] [address] 77773- 8423 Apr, History of DVT (deep vein thrombosis) Z86.718 [facility] [id number] [place] [address] 23183- 1132 14 Apr, 2016 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 [facility] [address], [place] [address]- 0678 Mar, [facility] [id number] [place] [address] 09508- 9946 Mar, USP (current) use of anticoagulants Z79.01 [facility] [address] [place] [address] 96491 2546 Mar, Hypertriglyceridemia E78.1 and 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 [place] [id number] [place] [address] 21743 2546 Feb, USP (current) use of anticoagulants Z79.01 [place] [id number] [place] [address] 67603 2546 Feb, USP (current) use of anticoagulants Z79.01 [place] [id number] [place] [address] 03406- 9256 Feb, 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 [place] [address] [place] [address] 29496 2546 Dec, [place] [id number] [place] [address] 47251- 7826 Nov, [place] [address] [place] [address] 88159- 1436 Nov, History of DVT (deep vein thrombosis) Z86.718 ; Tremulousness R25.1 ; Generalized anxiety disorder F41.1 ; Peripheral edema R60.9 and Hypertriglyceridemia E78.1 [place] [address], [place] [address] 2546 Oct, History of DVT (deep vein thrombosis) Z86.718 [place] [address] [place] [address] 95452 2546 Oct, [place] [address] [place] [address] 05187- 2546 Sep, History of DVT (deep vein thrombosis) Z86.718 [facility] [address] [place] [address] 34749- 7211 Sep, 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 [facility] [id number] [place] [address] 78094- 0997 July, [facility] [id number] [place] [address] 11936- 7663 July, 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 [id number] [place] [address] 47268 -9525 Jun, Coccyx pain M53.3 ; Encounter for therapeutic drug level monitoring Z51.81 and residential real estate assistant current use 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.01 [facility] [id number] [place] [address] 20539- 1361 May, Abnormal mammogram R92.8 [facility] [id number] [place] [address] 01372 -6774 May, [facility] [id number] [place] [address] 81555 -3683 May, Acute vaginitis N76.0 and Encounter for other screening for malignant neoplasm of breast Z12.39 [place] [id number] [place] [address] 11701- 1292 Apr, [facility] [id number] [place] [address] 96164- 5219 Apr, [facility] [id number] [place] [address] 92992- 7819 Apr, Peripheral edema R60.9 [facility] [id number] [place] [address] 34992 2546 Apr, USP (current) use of anticoagulants Z79.01 [facility] [id number] [place] [address] 21260 2546 Apr, Peripheral edema R60.9 and 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 [place] [id number] [place] [address] 89602 2546 Apr, USP (current) use of anticoagulants Z79.01 [place] [id number] [place] [address] 30672 2546 Apr, [place] [id number] [place] [address] 29622 2546 Apr, USP (current) use of anticoagulants Z79.01 [place] [id number] [place] [address] 75381 2546 Apr, Peripheral edema R60.9 [place] [id number] [place] [address] 63232 2546 Mar, 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 [place] [id number] [place] [address] 37154 2546 Mar, 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 and Hypertriglyceridemia E78.1 [place] [address] [place] [address] 66327 2546 Mar, USP (current) use of anticoagulants Z79.01 [place] [id number] [place] [address] 72818 2546 Mar, 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 [place] [id number] [place] [address] 25944 2546 Mar, [place] [address] [place] [address]- 7737 Mar, 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 ; Hypertriglyceridemia E78.1 ; Personal history of venous thrombosis and embolism Z86.718 and Lump R22.9 [place] [address] [place] [address] 34257- 6916 Mar, Personal history of venous thrombosis and embolism Z86.718 [place] [id number] [place] [address] 77743- 0671 Mar, Personal history of venous thrombosis and embolism Z86.718 [place] [id number] [place] [address] 67637- 6636 Mar, [place] [id number] [place] [address] 12801- 0512 Dec, Personal history of venous thrombosis and embolism Z86.718 [place] [id number] [place] [address] 64163- 1306 Dec, Personal history of venous thrombosis and embolism V12.51 [place] [id number] [place] [address] 35848- 8752 Nov, Personal history of venous thrombosis and embolism V12.51 [place] [address] [place] [address] 30538- 2520 Nov, Personal history of venous thrombosis and embolism V12.51 [place] [address] [place] [address] 82567- 8485 Nov, Personal history of venous thrombosis and embolism V12.51 [place] [address] [place] [address] 94071- 0617 Nov, Personal history of venous thrombosis and embolism V12.51 [place] [address] [place] [address] 60121- 8066 Nov, [place] [id number] [place] [address] 56255- 5562 Oct, Dysuria 788.1 [facility] [address] [address]- 5270 Oct, Personal history of venous thrombosis and embolism V12.51 [facility] [address], [place] [address]- 0679 Oct, [facility] [address] [address]- 8200 Oct, Personal history of venous thrombosis and embolism V12.51 [facility] [address] [place] [address] 78270- 4848 Sep, Personal history of venous thrombosis and embolism V12.51 [facility] [address] [place] [address] 18634- 9765 Sep, Personal history of venous thrombosis and embolism V12.51 [facility] [address] [place] [address] 60034- 2296 Aug, Personal history of venous thrombosis and embolism V12.51 [facility] [address] [address]- 8039 Aug, Personal history of venous thrombosis and embolism V12.51 [facility] [address] [address]- 1044 Aug, Personal history of venous thrombosis and embolism V12.51 [facility] [address] [address]- 0327 July, Generalized anxiety disorder 300.02 ; Abdominal pain, left lower quadrant 789.04 and Personal history of venous thrombosis and embolism V12.51 [facility] [address] [address]- 2625 Jun, [facility] [address] [address]- 7000 Jun, [facility] [address] [address]- 1642 May, [facility] [place] [facility] [address] [id number] [place] [address]- 5598 May, [facility] [place] [facility] [address] [id number] [place] [address]- 6439 May, [facility] [place] [facility] [address] [id number] [place] [address]- 2511 May, [facility] [place] [facility] [address] [id number] [place] [address]- 9401 May, [facility] [place] [facility] [address] [id number] [place] [address]- 3586 May, [facility] [place] [facility] [address] [id number] [place] [address]- 5613 May, [facility] [place] [facility] [address] [facility] [id number] [place] [address]- 9156 May, [facility] [place] [facility] [address] [id number] [place] [address]- 2029 Apr, [facility] [place] [facility] [address] [id number] [place] [address]- 9170 Apr, [facility] [place] [facility] [address] [facility] [id number] [place] [address]- 9793 Apr, [facility] [place] [facility] [address] [facility] [id number] [place] [address]- 9708 Apr, [facility] [place] [facility] [address] [id number] [address]- 0226 Apr, [facility] [place] [facility] [address] [id number] [place] [address]- 2571 Mar, [facility] [place] [facility] [address] [id number] [place] [address] Mar, [facility] [place] [facility] [address] [facility] [id number][place] [address] Mar, [facility] [place] [facility] [address] [id number] [place] [address] Mar, [facility] [place] [facility] [address] [id number] [place] [address] Mar, [facility] [place] [facility] [address] [id number] [place] [address] Mar, [facility] [place] [facility] [address] [id number] [place] [address] Feb, [facility] [place] [facility] [address] [id number] [place] [address] Feb, [facility] [place] [facility] [address] [id number] [place] [address] Feb, [facility] [place] [facility] [address] [id number] [place] [address] Feb, [facility] [place] [facility] [address] [facility] [id number] [place] [address] Feb, [facility] [place] [facility] [address] [id number] [place] [address] Feb, [facility] [place] [facility] [address] [id number] [place] [address] Feb, [facility] [place] [facility] [address] [id number] [place] [address] Feb, [facility] [place] [facility] [address] [id number] [place] [address] Feb, [facility] [place] [facility] [address] [id number] [place] [address] Feb, [facility] [place] [facility] [address] [id number] [place] [address] Jan, [facility] [place] [facility] [address] [id number] [place] [address] Jan, [facility] [place] [facility] [address] [facility] [id number] [place] [address] Jan, [facility] [place] [facility] [address] [id number] [place] [address] Jan, [facility] [place] [facility] [address] [id number] [place] [address] Jan, [facility] [place] [facility] [address] [id number] [place] [address] Jan, [facility] [place] [facility] [address] [id number] [place] [address] Jan, [facility] [place] [facility] [address] [id number] [place] [address] Jan, [facility] [place] [facility] [address] [address] [id number] [place] [address] Jan, [facility] [place] [facility] [address] [id number] [place] [address] Jan, [facility] [place] [facility] [address] [id number] [place] [address] 7727 Dec, [facility] [place] [facility] [address] [id number] [place] [address]- 4074 Dec, [facility] [place] [facility] [address] [id number] [place] [address] 1437 Dec, [facility] [place] [facility] [address] [id number] [place] [address]- 4077 Dec, [facility] [place] [facility] [address] [id number] [place] [address]- 4861 Dec, [facility] [place] [facility] [address] [id number] [place] [address] 4847 Dec, [facility] [place] [facility] [address] [id number] [place] [address]- 9269 Dec, [facility] [place] [facility] [address] [id number] [place] [address]- 8029 Dec, [facility] [place] [facility] [address] [id number] [place] [address]- 9147 Dec, [facility] [place] [facility] [address] [id number] [place] [address]- 3760 Dec, [facility] [place] [facility] [address] [id number] [place] [address]- 3173 Dec, [facility] [place] [facility] [address] [id number] [place] [address]- 4105 Dec, [facility] [place] [facility] [address] [id number] [place] [address]- 3213 Dec, [facility] [place] [facility] [address] [id number] [place] [address]- 0130 Dec, [facility] [place] [facility] [address] [id number] [place] [address]- 3043 Dec, [facility] [place] [facility] [address] [id number] [place] [address]- 4616 30 Nov, 2013 [facility] [place] [facility] [address] [id number] [place] [address]- 6790 30 Nov, 2013 [facility] [place] [facility] [address] [id number] [place] [address]- 2765 26 Nov, 2013 [facility] [place] [facility] [address] [id number] [place] [address]- 8729 26 Nov, 2013 [facility] [place] [facility] [address] [id number], [place] [address]- 7[address] 24 Sep, 2013 [facility] [place] [facility] [address] [id number], [place] [address]- 0[address] 24 Sep, 2013 [facility] [place] [facility] [address] [id number] [place] [address]- 8532 23 Sep, 2013 [facility] [place] [facility] [address] [id number] [place] [address]- 8254 23 Nov, 2013 [facility] [place] [facility] [address] [id number] [place] [address]- 9417 18 Nov, 2013 [facility] [place] [facility] [address] [id number] [place] [address]- 8868 18 Nov, 2013 [facility] [place] [facility] [address] [id number] [place] [address]- 5236 17 Nov, 2013 [facility] [place] [facility] [address] [id number] [place] [address]- 9096 17 Nov, 2013 [facility] [place] [facility] [address] [id number] [place] [address]- 6636 11 Nov, 2013 [facility] [place] [facility] [address] [id number] [place] [address] 2546 11 Nov, 2013 [facility] [place] [facility] [address] [id number] [place] [address]- 0731 10 Nov, 2013 [facility] [place] [facility] [address] [id number] [place] [address]- 0630 10 Nov, 2013 [facility] [place] [facility] [address] [id number] [place] [address]- 4023 08 Nov, 2013 [facility] [place] [facility] [address] [id number] [place] [address]- 1546 08 Nov, 2013 [facility] [place] [facility] [address] [id number] [place] [address]- 9085 Sep, 2013 [facility] [place] [facility] [address] [id number] [place] [address]- 8526 Sep, [facility] [place] [facility] [address] [id number] [place] [address]- 7648 Sep, 2013 [facility] [place] [facility] [address] [id number] [place] [address]- 3096 Sep, 2013 [facility] [place] [facility] [address] [id number] [place] [address]- 2106 Sep, [facility] [place] [facility] [address] [id number] [place] [address]- 5972 Sep, 2013 [facility] [place] [facility] [address] [id number] [place] [address]- 6062 Aug, [facility] [place] [facility] [address] [id number] [place] [address]- 9023 Aug, [facility] [place] [facility] [address] [id number] [place] [address]- 5936 Aug, [facility] [place] [facility] [address] [id number] [place] [address]- 4783 Aug, [facility] [place] [facility] [address] [id number] [place] [address]- 6116 Aug, [facility] [place] [facility] [address] [id number] [place] [address]- 5254 Aug, [facility] [place] [facility] [address] [id number] [place] [address]- 9891 Aug, [facility] [place] [facility] [address] [id number] [place] [address]- 4372 Aug, [facility] [place] [facility] [address] [id number] [place] [address]- 3950 Aug, [facility] [place] [facility] [address] [id number] [place] [address]- 3237 Aug, [facility] [place] [facility] [address] [id number] [place] [address]- 1865 Aug, [facility] [place] [facility] [address] [id number] [place] [address]- 1618 July, [facility] [place] [facility] [address] [id number] [place] [address]- 0289 July, [facility] [place] [facility] [address] [id number] [place] [address]- 7401 Jun, [facility] [place] [facility] [address] [id number] [place] [address]- 5140 Jun, [facility] [place] [facility] [address] [id number] [place] [address]- 3937 Jun, [facility] [place] [facility] [address] [id number] [place] [address]- 1076 18 Jun, 2013 [facility] [place] [facility] [address] [id number] [place] [address]- 8340 18 Jun, 2013 [facility] [place] [facility] [address] [id number] [place] [address]- 0865 18 Jun, 2013 [facility] [place] [facility] [address] [id number] [place] [address]- 7093 15 Jun, 2013 [facility] [place] [facility] [address] [id number] [place] [address]- 4809 15 Jun, 2013 [facility] [place] [facility] [address] [id number] [place] [address]- 5068 Jun, [facility] [place] [facility] [address] [id number] [place] [address]- 3059 Jun, [facility] [place] [facility] [address] [id number] [place] [address]- 5693 Jun, [facility] [place] [facility] [address] [id number] [place] [address]- 6279 Jun, [facility] [place] [facility] [address] [id number] [place] [address]- 6667 May, [facility] [place] [facility] [address] [id number] [place] [address]- 9814 May, [facility] [place] [facility] [address] [id number] [place] [address]- 2960 May, [facility] [place] [facility] [address] [id number] [place] [address]- 2880 May, [facility] [place] [facility] [address] [id number] [place] [address]- 3073 May, [facility] [place] [facility] [address] [id number] [place] [address]- 9742 19 May, 2013 [facility] [place] [facility] [address] [id number] [place] [address]- 8655 May, [facility] [place] [facility] [address] [id number] [place] [address]- 8975 May, [facility] [place] [facility] [address] [id number] [place] [address]- 0445 May, [facility] [place] [facility] [address] [id number] [place] [address]- 6442 May, [facility] [place] [facility] [address] [id number] [place] [address]- 4751 May, [facility] [place] [facility] [address] [id number] [place] [address]- 8647 May, [facility] [place] [facility] [address] [id number] [place] [address]- 7488 Apr, [facility] [place] [facility] [address] [facility] [id number] [place] [address]- 1299 Apr, [facility] [place] [facility] [address] [id number] [place] [address]- 1849 Apr, [facility] [place] [facility] [address] [id number] [place] [address]- 6886 Apr, [facility] [place] [facility] [address] [facility] [id number] [place] [address]- 5288 Apr, [facility] [place] [facility] [address] [facility] [id number] [place] [address]- 3200 Apr, [facility] [place] [facility] [address] [facility] [id number] [place] [address]- 7480 Apr, [facility] [place] [facility] [address] [id number] [place] [address]- 0110 Apr, [facility] [place] [facility] [address] [id number] [place] [address]- 8517 Apr, [facility] [place] [facility] [address] [facility] [id number] [place] [address]- 1604 Apr, [facility] [place] [facility] [address] [facility] [id number] [place] [address]- 8373 Apr, [facility] [place] [facility] [address] [id number] [place] [address]- 9976 Apr, [facility] [place] [facility] [address] [id number] [place] [address]- 3517 Apr, 2013 [facility] [place] [facility] [address] [id number] [place] [address]- 7326 Apr, [facility] [place] [facility] [address] [id number] [place] [address]- 9975 Apr, [facility] [place] [facility] [address] [id number] [place] [address]- 8040 Apr, [facility] [place] [facility] [address] [id number] [place] [address]- 3816 Apr, [facility] [place] [facility] [address] [facility] [id number] [place] [address]- 2335 Jan, [facility] [place] [facility] [address] [id number] [place] [address]- 1280 Jan, [facility] [place] [facility] [address] [facility] [id number] [place] [address]- 2716 Jan, [facility] [place] [facility] [address] [facility] [id number] [place] [address]- 4854 Jan, [facility] [place] [facility] [address] [id number] [place] [address]- 8021 Jan, [facility] [place] [facility] [address] [id number] [place] [address]- 1025 Jan, [facility] [place] [facility] [address] [id number] [place] [address]- 1533 Jan, [facility] [place] [facility] [address] [facility] [id number] [place] [address]- 4288 Dec, [facility] [place] [facility] [address] [id number] [place] [address]- 2335 Dec, [facility] [place] [facility] [address] [id number] [place] [address]- 6773 Dec, [facility] [place] [facility] [address] [id number] [place] [address]- 1548 Nov, [facility] [place] [facility] [address] [id number] [place] [address]- 7613 Nov, [facility] [place] [facility] [address] [id number] [place] [address]- 7445 Nov, [facility] [place] [facility] [address] [id number] [place] [address]- 6680 Nov, [facility] [place] [facility] [address] [id number] [place] [address]- 5354 Oct, [facility] [place] [facility] [address] [id number] [place] [address]- 5579 Oct, [facility] [place] [facility] [address] [id number] [place] [address]- 1526 Oct, [facility] [place] [facility] [address] [id number] [place] [address]- 0426 Oct, [facility] [place] [facility] [address] [id number] [place] [address]- 7229 Oct, [facility] [place] [facility] [address] [id number] [place] [address]- 3165 Sep, [facility] [place] [facility] [address] [id number] [place] [address]- 5703 Sep, [facility] [place] [facility] [address] [id number] [place] [address]- 9122 Sep, [facility] [place] [facility] [address] [id number] [place] [address]- 8233 Sep, [facility] [place] [facility] [address] [id number] [place] [address]- 5605 Sep, [facility] [place] [facility] [address] [id number] [place] [address]- 2546 Sep, [facility] [address] [id number] [place] [address]- 7208 Sep, [facility] [address] [id number] [place] [address]- 3293 Aug, [facility] [address] [id number] [place] [address]- 7690 Aug, [facility] [place] [facility] [address] [id number] [place] [address]- 6469 July, [facility] [address] [id number] [place] [address]- 7964 Jun, [facility] [place] [facility] [address] [id number] [place] [address]- 1901 Jun, [facility] [address] [id number] [place] [address]- 6149 Jun, [facility] [place] [facility] [address] [id number] [place] [address]- 9387 Apr, [facility] [address] [id number] [place] [address]- 1299 Apr, [facility] [place] [facility] [address] [id number] [place] [address]- 4011 Apr, [facility] [address] [id number] [place] [address]- 5224 Mar, [facility] [place] [facility] [address] [id number] [place] [address]- 0329 Mar, [facility] [place] [facility] [address] [id number] [place] [address]- 1013 Mar, [facility] [place] [facility] [address] [id number] [place] [address]- 3583 Mar, [facility] [place] [facility] [address] [id number] [place] [address]- 8706 Mar, [facility] [place] [facility] [address] [id number] [place] [address]- 4057 14 Feb, 2012 [facility] [place] [facility] [address] [id number] [place] [address]- 1819 14 Feb, 2012 [facility] [place] [facility] [address] [id number] [place] [address]- 3656 13 Jan, 2012 [facility] [place] [facility] [address] [id number] [place] [address]- 7254 13 Jan, 2012 [facility] [place] [facility] [address] [id number] [place] [address]- 6210 13 Jan, 2012 [facility] [place] [facility] [address] [id number] [place] [address]- 5073 13 Jan, 2012 [facility] [place] [facility] [address] [id number] [place] [address]- 5101 07 Jan, 2012 [facility] [place] [facility] [address] [id number] [place] [address]- 9398 Jan, [facility] [place] [facility] [address] [id number] [place] [address]- 3415 06 Jan, 2012 [facility] [place] [facility] [address] [id number] [place] [address]- 4664 31 Dec, 2011 [facility] [place] [facility] [address] [facility] [id number] [place] [address]- 8512 31 Dec, 2011 [facility] [place] [facility] [address] [id number] [place] [address]- 3056 30 Dec, 2011 [facility] [place] [facility] [address] [id number] [place] [address]- 6447 30 Dec, 2011 [facility] [place] [facility] [address] [id number] [place] [address]- 9166 30 Dec, 2011 [facility] [place] [facility] [address] [facility] [id number] [place] [address]- 1166 30 Dec, 2011 [facility] [place] [facility] [address] [id number] [place] [address]- 9348 Dec, [facility] [place] [facility] [address] [id number] [place] [address]- 7398 Dec, [facility] [place] [facility] [address] [id number] [place] [address]- 5552 Dec, [facility] [place] [facility] [address] [id number] [place] [address]- 9893 Dec, [facility] [place] [facility] [address] [id number] [place] [address]- 8367 Oct, [facility] [place] [facility] [address] [id number] [place] [address]- 9523 Oct, [facility] [place] [facility] [address] [id number] [place] [address]- 6021 Aug, [facility] [place] [facility] [address] [id number] [place] [address]- 6838 Aug, [facility] [place] [facility] [address] [id number] [place] [address]- 9014 July, [facility] [place] [facility] [address] [id number] [place] [address]- 7519 Jun, [facility] [place] [facility] [address] [id number] [place] [address]- 6736 Jun, [facility] [place] [facility] [address] [id number] [place] [address]- 7913 May, [facility] [place] [facility] [address] [id number] [address]- 6202 Apr, [facility] [place] [facility] [address] [id number] [place] [address]- 4630 Apr, [facility] [place] [facility] [address] [id number], [place] [address]- 4896 Mar, [facility] [place] [facility] [address] [id number] [place] [address]- 9876 Mar, [facility] [place] [facility] [address] [id number] [place] [address]- 9975 19 Feb, 2011 [facility] [address] [id number] [place] [address]- 0016 15 Feb, 2011 [facility] [place] [facility] [address] [id number] [place] [address] 2546 13 Feb, 2011 [facility] [address] [id number] [place] [address]- 2726 13 Feb, 2011 [facility] [place] [facility] [address] [id number] [place] [address] 2545 Jan, [facility] [address] [id number] [place] [address]- 9783 17 Dec, 2010 [facility] [address] [id number] [place] [address]- 9811 08 Feb, 2010 [facility] [address] [id number] [place] [address]- 7769 02 Feb, 2010 [facility] [address] [id number] [place] [address]- 2469 Feb, [facility] [place] [facility] [address] [id number] [place] [address]- 7979 Feb, [facility] [address] [facility] [id number] [place] [address]- 1506 15 Dec, 2009 [facility] [place] [facility] [address] [id number] [place] [address]- 1721 15 Dec, 2009 [facility] [place] [facility] [address] [id number] [place] [address]- 5532 Oct, [facility] [place] [facility] [address] [id number] [place] [address]- 6262 15 Jun, 2009 [facility] [place] [facility] [address] [id number] [place] [address] 2543 Feb, [facility] [place] [facility] [address] [id number] [place] [address]- 7136 Feb, [facility] [address] [facility] [id number] [place] [address]- 1121 Feb, [facility] [address] [facility] [id number] [place] [address]- 4912 Dec, IMMUNIZATIONS No Known Immunizations SOCIAL HISTORY Never Assessed REASON FOR VISIT INR Results PLAN OF CARE VITAL SIGNS MEDICATIONS Medication Instructions Dosage Frequency Start Date End Date Duration Status Eliquis 2.5 MG Orally 2 times a day 1 tablet [...]
--- OUTSIDE RECORDS SUMMARY | 2018-08-02 08:59 | XMS REPORT ---
Author Author KIANA ASHLEY [facility] Address [address] [place] [address] Care Team Providers Care Scoop Filler Name Role Phone GILSON BRUNOHANY Unavailable PROBLEMS Type Condition ICD9-CM Code CFB92-TA Code Onset Dates Condition Status SNOMED Code Problem Generalized anxiety disorder F41.1 Active 463570030 Problem 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 Active 470788783 Problem History of DVT (deep vein thrombosis) Z86.718 Active 358139913 Problem Factor V Leiden D68.51 Active 182484860 Problem Hypertriglyceridemia E78.1 Active 674521419 Problem intermediate (current) use of anticoagulants Z79.01 Active 252738164 Problem Thyroid nodule E04.1 Active 862829919 Problem Excessive daytime sleepiness G47.19 Active 006781919203 Problem Peripheral edema R60.9 Active 128754734 Problem Pelvic pain R10.2 Active 22951651 Problem Gastroesophageal reflux disease, esophagitis presence not specified K21.9 Active 561538382 Problem Presence of IVC filter Z95.828 Active 947614346 ALLERGIES No Information ENCOUNTERS Encounter Location Date Diagnosis [place] [address], [place] [address] Aug, [facility] [id number] [place] [address] 35535- 0703 Aug, [facility] [id number] [place] [address] 13207- 4171 Aug, Acute pain of left shoulder M25.512 and Thyroid nodule E04.1 [facility] [address] [place] [address] 82146- 8935 July, Superior glenoid labrum lesion of left shoulder, subsequent encounter S43.432D [place] [id number] [place] [address] 00602- 9245 Jun, History of DVT (deep vein thrombosis) Z86.718 [facility] [id number] [place] [address] 46479- 8365 Jun, History of DVT (deep vein thrombosis) Z86.718 [place] [address] [address] [id number] [place] [address] 75414- 1104 Jun, Impingement syndrome, shoulder, left M75.42 [place] [id number] [place] [address] 63869- 7615 May, Subacromial bursitis of left shoulder joint M75.52 [place] [id number] [place] [address] 74405- 4876 May, [place] [id number] [place] [address] 10422- 0077 May, Hypertriglyceridemia E78.1 ; intermediate (current) use of anticoagulants Z79.01 and Excessive daytime sleepiness G47.19 [place] [id number] [place] [address] 70385- 7851 May, History of DVT (deep vein thrombosis) Z86.718 ; Generalized anxiety disorder F41.1 ; Hypertriglyceridemia E78.1 ; 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 ; Subacromial bursitis of left shoulder joint M75.52 and Excessive daytime sleepiness G47.19 [place] [id number] [place] [address] 50638- 2530 May, [place] [id number] [place] [address] 29119- 0640 May, intermediate (current) use of anticoagulants Z79.01 [place] [id number] [place] [address] 39153- 4591 Apr, intermediate (current) use of anticoagulants Z79.01 [place] [id number] [place] [address] 92663- 9823 Apr, intermediate (current) use of anticoagulants Z79.01 [facility] [id number] [place] [address] 21358 2546 Apr, intermediate (current) use of anticoagulants Z79.01 [facility] [id number] [place] [address] 97794 2546 Apr, [facility] [address] [address] 2546 Apr, intermediate (current) use of anticoagulants Z79.01 [facility] [id number] [place] [address] 77551 2546 13 Apr, 2017 intermediate (current) use of anticoagulants Z79.01 [facility] [id number] [place] [address] 63244 2546 Apr, intermediate (current) use of anticoagulants Z79.01 [facility] [id number] [place] [address] 80623 2546 Apr, intermediate (current) use of anticoagulants Z79.01 [facility] [id number] [place] [address] 93832 2546 Apr, 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 [facility] [id number] [place] [address] 90262 2546 Apr, intermediate (current) use of anticoagulants Z79.01 [facility] [id number] [place] [address] 27011 2546 Mar, intermediate (current) use of anticoagulants Z79.01 [facility] [id number] [place] [address] 00478 2546 Mar, [facility] [id number] [place] [address] 77740 2546 Mar, 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 [facility] [id number] [place] [address] [id number] Jan, Dental examination Z01.20 [facility] [id number] [place] [address] [id number] Jan, [facility] [id number] [place] [address] 17846- 3015 Jan, intermediate (current) use of anticoagulants Z79.01 [facility] [id number] [place] [address] 08202- 2988 Jan, History of DVT (deep vein thrombosis) Z86.718 [facility] [id number] [place] [address] 33511- 0320 Jan, Generalized anxiety disorder F41.1 and Peripheral edema R60.9 [facility] [id number] [place] [address] 69658- 8976 Nov, History of DVT (deep vein thrombosis) Z86.718 [facility] [id number] [place] [address] 46911- 7853 Nov, 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 [facility] [id number] [place] [address] 90538 -1474 Nov, Acute non-recurrent maxillary sinusitis J01.00 [facility] [id number] [place] [address] 94412- 2595 Oct, 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 [facility] [id number] [place] [address] 22729- 2188 Oct, Personal history of venous thrombosis and embolism Z86.718 [facility] [id number] [place] [address] 02156- 4106 Sep, [facility] [id number] [place] [address] 59300- 2525 Sep, Personal history of venous thrombosis and embolism Z86.718 [facility] [id number] [place] [address] 37684- 1063 Sep, intermediate (current) use of anticoagulants Z79.01 [place] [address] [place] [id number] [place] [address] 87530- 1850 Sep, intermediate (current) use of anticoagulants Z79.01 [place] [address] [place] [id number] [place] [address] 39853- 5150 Sep, Generalized anxiety disorder F41.1 and History of DVT (deep vein thrombosis) Z86.718 [place] [address] [id number] [place] [address] 11840- 8289 Aug, History of DVT (deep vein thrombosis) Z86.718 ; Generalized anxiety disorder F41.1 ; 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 ; Pelvic pain R10.2 ; Hypertriglyceridemia E78.1 ; Excessive daytime sleepiness G47.19 ; Colon cancer screening Z12.11 ; Screening for breast cancer Z12.39 ; Peripheral edema R60.9 and Gastroesophageal reflux disease, esophagitis presence not specified K21.9 [place] [id number] [place] [address] 39938- 7699 Aug, [place] [address] [address] [id number] [place] [address] 42391- 7545 July, [place] [id number] [place] [address] 70490- 6020 July, History of DVT (deep vein thrombosis) Z86.718 [place] [id number] [place] [address] 55108- 2075 Jun, Generalized anxiety disorder F41.1 [place] [address] [id number] [place] [address] 13340- 6066 Jun, History of DVT (deep vein thrombosis) Z86.718 [place] [id number] [place] [address] 36203- 9115 Jun, History of DVT (deep vein thrombosis) Z86.718 [place] [address] [place] [address]- 5291 Jun, History of DVT (deep vein thrombosis) Z86.718 [facility] [id number] [place] [address] 28394- 6241 Jun, History of DVT (deep vein thrombosis) Z86.718 [facility] [id number] [place] [address] 70788- 2704 May, History of DVT (deep vein thrombosis) Z86.718 [facility] [id number] [place] [address] 09987- 9873 May, 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 [place] [address] 32348- 1024 May, 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 [place] [id number] [place] [address] 14619- 9188 May, History of DVT (deep vein thrombosis) Z86.718 [facility] [id number] [place] [address] 87385 -4726 Apr, Bacterial conjunctivitis of left eye H10.9 and H/O motion sickness Z87.898 [facility] [id number] [place] [address] 84573- 8567 Apr, History of DVT (deep vein thrombosis) Z86.718 [facility] [id number] [place] [address] 98393- 8035 Apr, History of DVT (deep vein thrombosis) Z86.718 [place] [id number] [place] [address] 88579- 4837 Apr, History of DVT (deep vein thrombosis) Z86.718 [facility] [id number] [place] [address] 50523- 5388 14 Apr, 2016 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 [facility] [address], [place] [address]- 6710 Mar, [facility] [id number] [place] [address] 79107- 1366 Mar, intermediate (current) use of anticoagulants Z79.01 [facility] [id number] [place] [address] 29381 2546 Mar, Hypertriglyceridemia E78.1 and 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 [place] [id number] [place] [address] 77829 2546 Feb, intermediate (current) use of anticoagulants Z79.01 [place] [address] [id number] [place] [address] 15269 2546 Feb, intermediate (current) use of anticoagulants Z79.01 [place] [id number] [place] [address] 11348- 1256 Feb, 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 [place] [id number] [place] [address] 56659 2546 Dec, [place] [id number] [place] [address] 00924- 8656 Nov, [place] [id number] [place] [address] 02000- 7936 Nov, History of DVT (deep vein thrombosis) Z86.718 ; Tremulousness R25.1 ; Generalized anxiety disorder F41.1 ; Peripheral edema R60.9 and Hypertriglyceridemia E78.1 [place] [address], [place] [address] 2546 Oct, History of DVT (deep vein thrombosis) Z86.718 [place] [id number] [place] [address] 02646 2546 Oct, [place] [id number] [place] [address] 43608- 2546 Sep, History of DVT (deep vein thrombosis) Z86.718 [facility] [id number] [place] [address] 06532- 6173 Sep, 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 [facility] [id number] [place] [address] 82576- 7140 July, [facility] [id number] [place] [address] 29789- 2555 July, 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 [facility] [id number] [place] [address] 02572- 1984 July, 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 [place] [id number] [place] [address] 52340- 8268 Jun, intermediate (current) use of anticoagulants Z79.01 [facility] [id number] [place] [address] 31817 -8394 Jun, Coccyx pain M53.3 ; Encounter for therapeutic drug level monitoring Z51.81 and 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 current use 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.01 [facility] [id number] [place] [address] 67350- 6135 May, Abnormal mammogram R92.8 [facility] [id number] [place] [address] 40880 -7020 May, [facility] [id number] [place] [address] 13808 -3596 May, Acute vaginitis N76.0 and Encounter for other screening for malignant neoplasm of breast Z12.39 [place] [id number] [place] [address] 28066- 5082 Apr, [facility] [id number] [place] [address] 42158- 1722 Apr, [facility] [id number] [place] [address] 28277- 8741 Apr, Peripheral edema R60.9 [facility] [id number] [place] [address] 77116 2546 Apr, intermediate (current) use of anticoagulants Z79.01 [facility] [id number] [place] [address] 53731 2546 Apr, Peripheral edema R60.9 and 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 [place] [id number] [place] [address] 46203 2546 Apr, intermediate (current) use of anticoagulants Z79.01 [place] [id number] [place] [address] 49407 2546 Apr, [place] [id number] [place] [address] 12384 2546 Apr, intermediate (current) use of anticoagulants Z79.01 [place] [id number] [place] [address] 40000 2546 Apr, Peripheral edema R60.9 [place] [id number] [place] [address] 46101 2546 Mar, 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 [place] [id number] [place] [address] 36577 2546 Mar, 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 and Hypertriglyceridemia E78.1 [place] [address] [place] [address] 21626 2546 Mar, intermediate (current) use of anticoagulants Z79.01 [place] [id number] [place] [address] 11225 2546 Mar, 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 [place] [id number] [place] [address] 88139 2546 Mar, [place] [address] [place] [address]- 6167 Mar, 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 ; Hypertriglyceridemia E78.1 ; Personal history of venous thrombosis and embolism Z86.718 and Lump R22.9 [place] [id number] [place] [address] 28245- 1339 Mar, Personal history of venous thrombosis and embolism Z86.718 [place] [id number] [place] [address] 80180- 5042 Mar, Personal history of venous thrombosis and embolism Z86.718 [place] [id number] [place] [address] 55977- 3042 Mar, [place] [id number] [place] [address] 44761- 9782 Dec, Personal history of venous thrombosis and embolism Z86.718 [place] [id number] [place] [address] 19630- 0184 Dec, Personal history of venous thrombosis and embolism V12.51 [place] [id number] [place] [address] 33167- 5917 Nov, Personal history of venous thrombosis and embolism V12.51 [place] [id number] [place] [address] 17178- 4250 Nov, Personal history of venous thrombosis and embolism V12.51 [place] [id number] [place] [address] 91450- 8730 Nov, Personal history of venous thrombosis and embolism V12.51 [place] [id number] [place] [address] 05613- 9862 Nov, Personal history of venous thrombosis and embolism V12.51 [place] [id number] [place] [address] 51359- 0369 Nov, [place] [id number] [place] [address] 22522- 4928 Oct, Dysuria 788.1 [facility] [address] [address]- 8320 Oct, Personal history of venous thrombosis and embolism V12.51 [facility] [address] [place] [address]- 1789 Oct, [facility] [address] [place] [address]- 2871 Oct, Personal history of venous thrombosis and embolism V12.51 [facility] [id number] [place] [address] 37403- 9848 Sep, Personal history of venous thrombosis and embolism V12.51 [facility] [id number] [place] [address] 52457- 9411 Sep, Personal history of venous thrombosis and embolism V12.51 [facility] [id number] [place] [address] 57272- 6200 Aug, Personal history of venous thrombosis and embolism V12.51 [facility] [address] [place] [address]- 6141 Aug, Personal history of venous thrombosis and embolism V12.51 [facility] [address] [place] [address]- 7681 Aug, Personal history of venous thrombosis and embolism V12.51 [facility] [address] [place] [address]- 7742 July, Generalized anxiety disorder 300.02 ; Abdominal pain, left lower quadrant 789.04 and Personal history of venous thrombosis and embolism V12.51 [facility] [address] [place] [address]- 0688 Jun, [facility] [address] [place] [address]- 5306 Jun, [facility] [address] [place] [address]- 7723 May, [facility] [place] [facility] [address] [id number] [place] [address]- 8999 May, [facility] [place] [facility] [address] [id number] [place] [address]- 6982 May, [facility] [place] [facility] [address] [id number] [place] [address]- 5811 May, [facility] [place] [facility] [address] [id number] [place] [address]- 2273 May, [facility] [place] [facility] [address] [id number] [place] [address]- 9610 May, [facility] [place] [facility] [address] [id number] [place] [address]- 2277 May, [facility] [place] [facility] [address] [facility] [id number] [place] [address]- 4853 May, [facility] [place] [facility] [address] [id number] [place] [address]- 8509 Apr, [facility] [place] [facility] [address] [id number] [place] [address] Apr, [facility] [place] [facility] [address] [facility] [id number] [place] [address] Apr, [facility] [place] [facility] [address] [facility] [id number] [place] [address] Apr, [facility] [place] [facility] [address] [id number], [place] [address] Apr, [facility] [place] [facility] [address] [id number] [place] [address] Mar, [facility] [place] [facility] [address] [id number] [place] [address] Mar, [facility] [place] [facility] [address] [facility] [id number], [place] [address] Mar, [facility] [place] [facility] [address] [id number] [place] [address] Mar, [facility] [place] [facility] [address] [id number] [place] [address] Mar, [facility] [place] [facility] [address] [id number] [place] [address] Mar, [facility] [place] [facility] [address] [id number] [place] [address] Feb, [facility] [place] [facility] [address] [id number] [place] [address] Feb, [facility] [place] [facility] [address] [id number] [place] [address] Feb, [facility] [place] [facility] [address] [id number] [place] [address] Feb, [facility] [place] [facility] [address] [facility] [id number] [place] [address] Feb, [facility] [place] [facility] [address] [id number] [place] [address] Feb, [facility] [place] [facility] [address] [id number] [place] [address] Feb, [facility] [place] [facility] [address] [id number] [place] [address] Feb, [facility] [facility] [address] [id number] [place] [address] Feb, [facility] [place] [facility] [address] [id number] [place] [address] 8594 Feb, [facility] [place] [facility] [address] [id number] [place] [address]- 9366 Jan, [facility] [place] [facility] [address] [id number] [place] [address] 6031 Jan, [facility] [place] [facility] [address] [facility] [id number] [place] [address]- 8[address] Jan, [facility] [place] [facility] [address] [id number] [place] [address]- 9490 Jan, [facility] [place] [facility] [address] [id number] [place] [address]- 7952 Jan, [facility] [place] [facility] [address] [id number] [place] [address]- 4891 Jan, [facility] [place] [facility] [address] [id number] [place] [address]- 9721 Jan, [facility] [place] [facility] [address] [id number] [place] [address] 8066 Jan, [facility] [place] [facility] [address] [id number] [place] [address]- 3343 Jan, [facility] [place] [facility] [address] [id number] [place] [address]- 4888 Jan, [facility] [place] [facility] [address] [id number] [place] [address]- 6041 Dec, [facility] [place] [facility] [address] [id number] [place] [address]- 5603 Dec, [facility] [place] [facility] [address] [id number] [place] [address]- 4787 Dec, [facility] [place] [facility] [address] [id number] [place] [address]- 3738 Dec, [facility] [place] [facility] [address] [id number] [place] [address]- 5682 Dec, [facility] [place] [facility] [address] [id number] [place] [address]- 0723 Dec, [facility] [place] [facility] [address] [id number] [place] [address]- 6214 Dec, [facility] [place] [facility] [address] [id number] [place] [address]- 4433 Dec, [facility] [place] [facility] [address] [id number] [place] [address]- 1657 Dec, [facility] [place] [facility] [address] [id number] [place] [address]- 8170 Dec, [facility] [place] [facility] [address] [id number] [place] [address]- 2771 Dec, [facility] [place] [facility] [address] [id number] [place] [address]- 4741 Dec, [facility] [place] [facility] [address] [id number] [place] [address]- 6779 Dec, [facility] [place] [facility] [address] [id number] [place] [address]- 3547 Dec, [facility] [place] [facility] [address] [id number] [place] [address]- 9314 Dec, [facility] [place] [facility] [address] [id number] [place] [address]- 0893 30 Nov, 2013 [facility] [place] [facility] [address] [id number] [place] [address]- 4924 30 Nov, 2013 [facility] [place] [facility] [address] [id number] [place] [address]- 4901 26 Nov, 2013 [facility] [address] [id number] [place] [address]- 7570 26 Nov, 2013 [facility] [place] [facility] [address] [id number], [place] [address]- 39[address] 24 Sep, 2013 [facility] [address] [id number], [place] [address]- 7714 24 Sep, 2013 [facility] [address] [id number] [place] [address]- 7347 23 Sep, 2013 [facility] [place] [facility] [address] [id number] [place] [address]- 4770 23 Nov, 2013 [facility] [place] [facility] [address] [id number] [place] [address]- 9661 18 Nov, 2013 [facility] [place] [facility] [address] [id number] [place] [address]- 0904 18 Nov, 2013 [facility] [place] [facility] [address] [id number] [place] [address]- 2636 17 Nov, 2013 [facility] [address] [id number] [place] [address]- 9376 17 Nov, 2013 [facility] [place] [address] [id number] [place] [address]- 2476 11 Nov, 2013 [facility] [address] [id number] [place] [address] 2546 11 Nov, 2013 [facility] [address] [id number] [place] [address]- 6856 10 Nov, 2013 [facility] [address] [id number] [place] [address]- 2209 10 Nov, 2013 [facility] [address] [id number] [place] [address]- 0089 08 Nov, 2013 [facility] [address] [id number] [place] [address]- 1107 08 Nov, 2013 [facility] [address] [id number] [place] [address]- 8559 Sep, 2013 [facility] [address] [id number] [place] [address]- 8715 Sep, [facility] [address] [id number] [place] [address]- 1272 Sep, 2013 [facility] [address] [id number] [place] [address]- 9191 Sep, 2013 [facility] [address] [id number] [place] [address]- 2209 Sep, [facility] [address] [id number] [place] [address]- 5412 Sep, 2013 [facility] [address] [id number] [place] [address]- 0964 Aug, [facility] [address] [id number] [place] [address]- 4802 Aug, [facility] [address] [id number] [place] [address]- 2338 Aug, [facility] [address] [id number] [place] [address]- 2902 Aug, [facility] [address] [id number] [place] [address]- 8015 Aug, [facility] [address] [id number] [place] [address]- 3736 Aug, [facility] [address] [id number] [place] [address]- 8970 Aug, [facility] [address] [id number] [place] [address]- 9472 Aug, [facility] [address] [id number] [place] [address]- 1028 Aug, [facility] [address] [id number] [place] [address]- 3155 Aug, [facility] [address] [id number] [place] [address]- 4837 Aug, [facility] [address] [id number] [place] [address]- 3716 July, [facility] [address] [id number] [place] [address]- 9151 July, [facility] [address] [id number] [place] [address]- 4648 Jun, [facility] [address] [id number] [place] [address]- 5886 Jun, [facility] [address] [id number] [place] [address]- 2611 Jun, [facility] [address] [id number] [place] [address]- 5895 18 Jun, 2013 [facility] [address] [id number] [place] [address]- 8346 18 Jun, 2013 [facility] [address] [id number] [place] [address]- 8164 18 Jun, 2013 [facility] [address] [id number] [place] [address]- 6562 15 Jun, 2013 [facility] [address] [id number] [place] [address]- 7365 15 Jun, 2013 [facility] [address] [id number] [place] [address]- 5375 Jun, [facility] [address] [id number] [place] [address]- 7696 Jun, [facility] [address] [id number] [place] [address]- 1017 Jun, [facility] [address] [id number] [place] [address]- 1154 Jun, [facility] [address] [id number] [place] [address]- 5505 May, [facility] [address] [id number] [place] [address]- 9402 May, [facility] [address] [id number] [place] [address]- 7657 May, [facility] [address] [id number] [place] [address]- 0357 May, [facility] [address] [id number] [place] [address]- 0695 May, [facility] [address] [id number] [place] [address]- 4325 19 May, 2013 [facility] [address] [id number] [place] [address]- 0865 May, [facility] [address] [id number] [place] [address]- 0140 May, [facility] [address] [id number] [place] [address]- 9003 May, [facility] [address] [id number] [place] [address]- 4307 May, [facility] [address] [id number] [place] [address]- 6938 May, [facility] [address] [id number] [place] [address]- 2271 May, [facility] [address] [id number] [place] [address]- 3094 Apr, [facility] [address] [facility] [id number] [place] [address]- 6754 Apr, [facility] [address] [id number] [place] [address]- 3141 Apr, [facility] [address] [id number] [place] [address]- 9901 Apr, [facility] [address] [facility] [id number] [place] [address]- 1591 Apr, [facility] [address] [facility] [id number] [place] [address]- 9348 Apr, [facility] [address] [facility] [id number] [place] [address]- 5554 Apr, [facility] [address] [id number] [place] [address]- 7071 Apr, [facility] [address] [id number] [place] [address]- 0371 Apr, [facility] [address] [facility] [id number] [place] [address]- 2002 Apr, [facility] [address] [facility] [id number] [place] [address]- 8934 Apr, [facility] [address] [id number] [place] [address]- 6576 Apr, [facility] [address] [id number] [place] [address]- 0882 Apr, 2013 [facility] [address] [id number] [place] [address]- 3506 Apr, [facility] [address] [id number] [place] [address]- 2654 Apr, [facility] [address] [id number] [place] [address]- 9467 Apr, [facility] [address] [id number] [place] [address]- 6754 Apr, [facility] [address] [facility] [id number] [place] [address]- 9956 Jan, [facility] [address] [id number] [place] [address]- 3074 Jan, [facility] [address] [facility] [id number] [place] [address]- 6551 Jan, [facility] [address] [facility] [id number] [place] [address]- 1204 Jan, [facility] [address] [id number] [place] [address]- 8496 Jan, [facility] [address] [id number] [place] [address]- 8835 Jan, [facility] [address] [id number] [place] [address]- 5208 Jan, [facility] [address] [facility] [id number] [place] [address]- 9900 Dec, [facility] [address] [id number] [place] [address]- 2166 Dec, [facility] [address] [id number] [place] [address]- 5236 Dec, [facility] [address] [id number] [place] [address]- 4749 Nov, [facility] [address] [id number] [place] [address]- 2300 Nov, [facility] [address] [id number] [place] [address]- 5409 Nov, [facility] [address] [id number] [place] [address]- 9744 Nov, [facility] [address] [id number] [place] [address]- 3696 Oct, [facility] [address] [id number] [place] [address]- 3300 Oct, [facility] [address] [id number] [place] [address]- 0033 Oct, [facility] [address] [id number] [place] [address]- 6803 Oct, [facility] [facility] [address] [id number] [place] [address]- 5013 Oct, [facility] [address] [id number] [place] [address]- 5548 Sep, [facility] [address] [id number] [place] [address]- 0657 Sep, [facility] [address] [id number] [place] [address]- 5743 Sep, [facility] [address] [id number] [place] [address]- 8592 Sep, [facility] [address] [id number] [place] [address]- 6146 Sep, [facility] [address] [id number] [place] [address]- 2546 Sep, [facility] [address] [id number] [place] [address]- 2827 Sep, [facility] [address] [id number] [place] [address]- 5585 Aug, [facility] [address] [id number] [place] [address]- 4539 Aug, [facility] [address] [id number] [place] [address]- 6009 July, [facility] [address] [id number] [place] [address]- 5489 Jun, [facility] [address] [id number] [place] [address]- 9897 Jun, [facility] [address] [id number] [place] [address]- 3674 Jun, [facility] [place] [facility] [address] [id number] [place] [address]- 7698 Apr, [facility] [address] [id number] [place] [address]- 9591 Apr, [facility] [place] [facility] [address] [id number] [place] [address]- 2661 Apr, [facility] [address] [id number] [place] [address]- 4496 Mar, [facility] [place] [facility] [address] [id number] [place] [address]- 0360 Mar, [facility] [place] [facility] [address] [id number] [place] [address]- 1272 Mar, [facility] [place] [facility] [address] [id number] [place] [address]- 6870 Mar, [facility] [place] [facility] [address] [id number] [place] [address]- 7806 Mar, [facility] [place] [facility] [address] [id number] [place] [address]- 2758 14 Feb, 2012 [facility] [place] [facility] [address] [id number] [place] [address]- 6297 14 Feb, 2012 [facility] [place] [facility] [address] [id number] [place] [address]- 0876 13 Jan, 2012 [facility] [place] [facility] [address] [id number] [place] [address]- 2826 13 Jan, 2012 [facility] [place] [facility] [address] [id number] [place] [address]- 2822 13 Jan, 2012 [facility] [place] [facility] [address] [id number] [place] [address]- 3008 13 Jan, 2012 [facility] [place] [facility] [address] [id number] [place] [address]- 9341 07 Jan, 2012 [facility] [place] [facility] [address] [id number] [place] [address]- 7632 Jan, [facility] [place] [facility] [address] [id number] [place] [address]- 6700 06 Jan, 2012 [facility] [place] [facility] [address] [id number] [place] [address]- 4518 31 Dec, 2011 [facility] [place] [facility] [address] [facility] [id number] [place] [address]- 5972 31 Dec, 2011 [facility] [place] [facility] [address] [id number] [place] [address]- 1955 30 Dec, 2011 [facility] [place] [facility] [address] [id number] [place] [address]- 7753 30 Dec, 2011 [facility] [place] [facility] [address] [id number] [place] [address]- 5956 30 Dec, 2011 [facility] [place] [facility] [address] [facility] [id number] [place] [address]- 8236 30 Dec, 2011 [facility] [place] [facility] [address] [id number] [place] [address]- 1658 Dec, [facility] [place] [facility] [address] [id number] [place] [address]- 3844 Dec, [facility] [place] [facility] [address] [id number] [place] [address]- 4986 Dec, [facility] [place] [facility] [address] [id number] [place] [address]- 8608 Dec, [facility] [place] [facility] [address] [id number] [place] [address]- 7039 Oct, [facility] [place] [facility] [address] [id number] [place] [address]- 8967 Oct, [facility] [place] [facility] [address] [id number] [place] [address]- 8375 Aug, [facility] [place] [facility] [address] [id number] [place] [address]- 9295 Aug, [facility] [place] [facility] [address] [id number] [place] [address]- 4233 July, [facility] [place] [facility] [address] [id number] [place] [address]- 2970 Jun, [facility] [place] [facility] [address] [id number] [place] [address]- 7098 Jun, [facility] [place] [facility] [address] [id number] [place] [address]- 4612 May, [facility] [place] [facility] [address] [id number], [place] [address]- 7274 Apr, [facility] [place] [facility] [address] [id number] [place] [address]- 6101 Apr, [facility] [place] [facility] [address] [id number], [place] [address]- 3576 Mar, [facility] [place] [facility] [address] [id number] [place] [address]- 9546 Mar, [facility] [place] [facility] [address] [id number] [place] [address]- 0241 19 Feb, 2011 [facility] [address] [id number] [place] [address]- 4616 15 Feb, 2011 [facility] [place] [facility] [address] [id number] [place] [address] 2546 13 Feb, 2011 [facility] [address] [id number] [place] [address] 13 Feb, 2011 [facility] [place] [facility] [address] [id number] [place] [address] Jan, [facility] [address] [id number] [place] [address] 17 Dec, 2010 [facility] [address] [id number] [place] [address] 08 Feb, 2010 [facility] [address] [id number] [place] [address] 02 Feb, 2010 [facility] [address] [id number] [place] [address] Feb, [facility] [place] [facility] [address] [id number] [place] [address] Feb, [facility] [address] [facility] [id number] [place] [address] 15 Dec, 2009 [facility] [place] [facility] [address] [id number] [place] [address] 15 Dec, 2009 [facility] [place] [facility] [address] [id number] [place] [address] Oct, [facility] [place] [facility] [address] [id number] [place] [address] 15 Jun, 2009 [facility] [place] [facility] [address] [id number] [place] [address] Feb, [facility] [place] [facility] [address] [id number] [place] [address] Feb, [facility] [address] [facility] [id number] [place] [address] Feb, [facility] [address] [facility] [id number] [place] [address] Dec, IMMUNIZATIONS No Known Immunizations SOCIAL HISTORY Never Assessed REASON FOR VISIT INR Results PLAN OF CARE VITAL SIGNS MEDICATIONS Medication Instructions Dosage Frequency Start Date End Date Duration Status Coumadin 1 MG Orally Once a day 5 tablets 24h Apr, Active RESULTS No Results PROCEDURES No Known [...]
--- OUTSIDE RECORDS SUMMARY | 2018-08-02 08:59 | XMS REPORT ---
Author Author ASHLEY BRUNO [facility] eClinicalWorks Address Unknown Phone Unavailable Care Team Providers Care Chief Projectionist Name Role Phone ASHLEY BRUNO CP Unavailable Allergies No Known Allergies Problems Problem Type Condition Code Onset Dates Condition Status Problem Irregular menstrual cycle 626.4 Active Problem Chronic pain syndrome 338.4 Active Problem Pure hyperglyceridemia 272.1 Active Assessment Personal history of venous thrombosis and embolism Z86.718 Active Problem Unspecified anemia 285.9 Active Problem Lumbago 724.2 Active Problem Personal history of venous thrombosis and embolism V12.51 Active Problem Generalized anxiety disorder 300.02 Active Problem Hypopotassemia 276.8 Active Problem Pain in joint, lower leg 719.46 Active Problem Abdominal pain, left lower quadrant 789.04 Active Medications No Known Medications Results No Known Results Summary Purpose eClinicalWorks Submission
--- OUTSIDE RECORDS SUMMARY | 2018-08-02 08:59 | XMS REPORT ---
Author Author KIANA ASHLEY [facility] Address [address] [place] [address] Care Team Providers Care Diagnostic Radiologist Name Role Phone GILSON BRUNOHANY Unavailable PROBLEMS Type Condition ICD9-CM Code UNB28-RM Code Onset Dates Condition Status SNOMED Code Problem Generalized anxiety disorder F41.1 Active 527228066 Problem 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 Active 867752755 Problem History of DVT (deep vein thrombosis) Z86.718 Active 448654707 Problem Factor V Leiden D68.51 Active 521551051 Problem Hypertriglyceridemia E78.1 Active 107737346 Problem care home (current) use of anticoagulants Z79.01 Active 318886853 Problem Thyroid nodule E04.1 Active 479326294 Problem Excessive daytime sleepiness G47.19 Active 170334259221 Problem Peripheral edema R60.9 Active 293639194 Problem Pelvic pain R10.2 Active 15987447 Problem Gastroesophageal reflux disease, esophagitis presence not specified K21.9 Active 841088471 Problem Presence of IVC filter Z95.828 Active 211525770 ALLERGIES No Information ENCOUNTERS Encounter Location Date Diagnosis [facility] [address] [address] Aug, [facility] [id number] [place] [address] 71367- 1111 Aug, [facility] [id number] [place] [address] 05624- 8024 Aug, Acute pain of left shoulder M25.512 and Thyroid nodule E04.1 [facility] [id number] [place] [address] 89367- 9803 July, Superior glenoid labrum lesion of left shoulder, subsequent encounter S43.432D [facility] [id number] [place] [address] 15475- 1359 Jun, History of DVT (deep vein thrombosis) Z86.718 [facility] [id number] [place] [address] 34969- 2972 Jun, History of DVT (deep vein thrombosis) Z86.718 [facility] [place] [id number] [place] [address] 92214- 3698 Jun, Impingement syndrome, shoulder, left M75.42 [facility] [id number] [place] [address] 57245- 0565 May, Subacromial bursitis of left shoulder joint M75.52 [facility] [id number] [place] [address] 33324- 7576 May, [facility] [id number] [place] [address] 25187- 3121 May, Hypertriglyceridemia E78.1 ; care home (current) use of anticoagulants Z79.01 and Excessive daytime sleepiness G47.19 [facility] [id number] [place] [address] 15522- 4515 May, History of DVT (deep vein thrombosis) Z86.718 ; Generalized anxiety disorder F41.1 ; Hypertriglyceridemia E78.1 ; 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 ; Subacromial bursitis of left shoulder joint M75.52 and Excessive daytime sleepiness G47.19 [facility] [id number] [place] [address] 83864- 1297 May, [facility] [id number] [place] [address] 03676- 1068 May, care home (current) use of anticoagulants Z79.01 [facility] [id number] [place] [address] 53147- 0319 Apr, care home (current) use of anticoagulants Z79.01 [facility] [id number] [place] [address] 25481- 1723 Apr, care home (current) use of anticoagulants Z79.01 [facility] [id number] [place] [address] 46069 2546 Apr, care home (current) use of anticoagulants Z79.01 [facility] [id number] [place] [address] 72985 2546 Apr, [facility] [address] [address] 2546 Apr, care home (current) use of anticoagulants Z79.01 [facility] [id number] [place] [address] 71203 2546 13 Apr, 2017 care home (current) use of anticoagulants Z79.01 [facility] [id number] [place] [address] 34538 2546 Apr, care home (current) use of anticoagulants Z79.01 [facility] [id number] [place] [address] 05081 2546 Apr, care home (current) use of anticoagulants Z79.01 [facility] [id number] [place] [address] 57812 2546 Apr, 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 [facility] [id number] [place] [address] 83769 2546 Apr, care home (current) use of anticoagulants Z79.01 [facility] [id number] [place] [address] 50934 2546 Mar, care home (current) use of anticoagulants Z79.01 [facility] [id number] [place] [address] 76643 2546 Mar, [facility] [id number] [place] [address] 44081 2546 Mar, 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 [facility] [id number] [place] [address] [id number] Jan, Dental examination Z01.20 [facility] [address] [place] [address] [id number] Jan, [facility] [id number] [place] [address] 38768- 5581 Jan, care home (current) use of anticoagulants Z79.01 [facility] [id number] [place] [address] 87624- 3849 Jan, History of DVT (deep vein thrombosis) Z86.718 [facility] [id number] [place] [address] 49294- 7040 Jan, Generalized anxiety disorder F41.1 and Peripheral edema R60.9 [facility] [id number] [place] [address] 43003- 1574 Nov, History of DVT (deep vein thrombosis) Z86.718 [facility] [id number] [place] [address] 14218- 0798 Nov, 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 [facility] [id number] [place] [address] 92620 -5881 Nov, Acute non-recurrent maxillary sinusitis J01.00 [facility] [address] [place] [address] 05720- 6417 Oct, 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 [facility] [id number] [place] [address] 96466- 9189 Oct, Personal history of venous thrombosis and embolism Z86.718 [facility] [id number] [place] [address] 81156- 6631 Sep, [facility] [id number] [place] [address] 88421- 9433 Sep, Personal history of venous thrombosis and embolism Z86.718 [facility] [id number] [place] [address] 39630- 6101 Sep, care home (current) use of anticoagulants Z79.01 [facility] [place] [id number] [place] [address] 61981- 1185 Sep, care home (current) use of anticoagulants Z79.01 [facility] [id number] [place] [address] 80332- 6763 Sep, Generalized anxiety disorder F41.1 and History of DVT (deep vein thrombosis) Z86.718 [facility] [id number] [place] [address] 20807- 1808 Aug, History of DVT (deep vein thrombosis) Z86.718 ; Generalized anxiety disorder F41.1 ; 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 ; Pelvic pain R10.2 ; Hypertriglyceridemia E78.1 ; Excessive daytime sleepiness G47.19 ; Colon cancer screening Z12.11 ; Screening for breast cancer Z12.39 ; Peripheral edema R60.9 and Gastroesophageal reflux disease, esophagitis presence not specified K21.9 [facility] [id number] [place] [address] 82811- 2302 Aug, [facility] [id number] [place] [address] 33358- 4971 July, [facility] [id number] [place] [address] 33831- 4316 July, History of DVT (deep vein thrombosis) Z86.718 [facility] [id number] [place] [address] 55144- 6958 Jun, Generalized anxiety disorder F41.1 [facility] [id number] [place] [address] 65864- 0494 Jun, History of DVT (deep vein thrombosis) Z86.718 [facility] [id number] [place] [address] 22859- 5288 Jun, History of DVT (deep vein thrombosis) Z86.718 [facility] [address] [place] [address]- 2048 Jun, History of DVT (deep vein thrombosis) Z86.718 [facility] [id number] [place] [address] 60025- 3579 Jun, History of DVT (deep vein thrombosis) Z86.718 [facility] [id number] [place] [address] 16560- 4378 May, History of DVT (deep vein thrombosis) Z86.718 [facility] [id number] [place] [address] 16519- 8994 May, 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 [facility] [address] 15896- 8526 May, 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 [facility] [id number] [place] [address] 49366- 1424 May, History of DVT (deep vein thrombosis) Z86.718 [facility] [id number] [place] [address] 32795 -0997 Apr, Bacterial conjunctivitis of left eye H10.9 and H/O motion sickness Z87.898 [facility] [id number] [place] [address] 72672- 7927 Apr, History of DVT (deep vein thrombosis) Z86.718 [facility] [id number] [place] [address] 56044- 4204 Apr, History of DVT (deep vein thrombosis) Z86.718 [facility] [id number] [place] [address] 64735- 2595 Apr, History of DVT (deep vein thrombosis) Z86.718 [facility] [id number] [place] [address] 94815- 9881 14 Apr, 2016 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 [facility] [address], [place] [address]- 6447 Mar, [facility] [id number] [place] [address] 66357- 2986 Mar, care home (current) use of anticoagulants Z79.01 [facility] [id number] [place] [address] 82719 2546 Mar, Hypertriglyceridemia E78.1 and 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 [facility] [place] [id number] [place] [address] 65414 2546 Feb, care home (current) use of anticoagulants Z79.01 [facility] [id number] [place] [address] 19302 2546 Feb, care home (current) use of anticoagulants Z79.01 [facility] [id number] [place] [address] 30477- 6026 Feb, 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 [facility] [address] [place] [address] 17366 2546 Dec, [facility] [id number] [place] [address] 48473- 0246 Nov, [facility] [address] [place] [address] 06328- 5256 Nov, History of DVT (deep vein thrombosis) Z86.718 ; Tremulousness R25.1 ; Generalized anxiety disorder F41.1 ; Peripheral edema R60.9 and Hypertriglyceridemia E78.1 [facility] [address], [place] [address] 2546 Oct, History of DVT (deep vein thrombosis) Z86.718 [facility] [address] [place] [address] 77866 2546 Oct, [facility] [address] [place] [address] 52088- 2546 Sep, History of DVT (deep vein thrombosis) Z86.718 [facility] [address] [place] [address] 82507- 7580 Sep, 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 [facility] [id number] [place] [address] 24468- 9274 July, [facility] [id number] [place] [address] 25199- 6939 July, 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 [facility] [id number] [place] [address] 90077- 2775 July, 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 [facility] [id number] [place] [address] 71151- 2024 Jun, care home (current) use of anticoagulants Z79.01 [facility] [id number] [place] [address] 54771 -0257 Jun, Coccyx pain M53.3 ; Encounter for therapeutic drug level monitoring Z51.81 and 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 current use 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.01 [facility] [id number] [place] [address] 53948- 0390 May, Abnormal mammogram R92.8 [facility] [id number] [place] [address] 19378 -3724 May, [facility] [id number] [place] [address] 19247 -0469 May, Acute vaginitis N76.0 and Encounter for other screening for malignant neoplasm of breast Z12.39 [facility] [id number] [place] [address] 31128- 1304 Apr, [facility] [id number] [place] [address] 01819- 7535 Apr, [facility] [id number] [place] [address] 02765- 8896 Apr, Peripheral edema R60.9 [facility] [id number] [place] [address] 44930 2546 Apr, care home (current) use of anticoagulants Z79.01 [facility] [id number] [place] [address] 08742 2546 Apr, Peripheral edema R60.9 and 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 [facility] [id number] [place] [address] 29398 2546 Apr, care home (current) use of anticoagulants Z79.01 [facility] [id number] [place] [address] 96825 2546 Apr, [facility] [id number] [place] [address] 73937 2546 Apr, care home (current) use of anticoagulants Z79.01 [facility] [id number] [place] [address] 62694 2546 Apr, Peripheral edema R60.9 [facility] [id number] [place] [address] 67019 2546 Mar, 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 [facility] [id number] [place] [address] 35441 2546 Mar, 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 and Hypertriglyceridemia E78.1 [facility] [address] [place] [address] 37597 2546 Mar, care home (current) use of anticoagulants Z79.01 [facility] [id number] [place] [address] 31509 2546 Mar, 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 [facility] [id number] [place] [address] 15030 2546 Mar, [facility] [address] [place] [address]- 7119 Mar, 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 ; Hypertriglyceridemia E78.1 ; Personal history of venous thrombosis and embolism Z86.718 and Lump R22.9 [facility] [address] [place] [address] 74815- 9875 Mar, Personal history of venous thrombosis and embolism Z86.718 [facility] [id number] [place] [address] 23276- 2332 Mar, Personal history of venous thrombosis and embolism Z86.718 [facility] [id number] [place] [address] 57699- 8529 Mar, [facility] [id number] [place] [address] 01215- 5406 Dec, Personal history of venous thrombosis and embolism Z86.718 [facility] [id number] [place] [address] 97272- 8757 Dec, Personal history of venous thrombosis and embolism V12.51 [facility] [id number] [place] [address] 32007- 2767 Nov, Personal history of venous thrombosis and embolism V12.51 [facility] [address] [place] [address] 35618- 3288 Nov, Personal history of venous thrombosis and embolism V12.51 [facility] [address] [place] [address] 98423- 5944 Nov, Personal history of venous thrombosis and embolism V12.51 [facility] [address] [place] [address] 06092- 6445 Nov, Personal history of venous thrombosis and embolism V12.51 [place] [address] [place] [address] 40991- 0201 Nov, [facility] [id number] [place] [address] 86803- 9787 Oct, Dysuria 788.1 [facility] [address], [place] [address]- 2200 Oct, Personal history of venous thrombosis and embolism V12.51 [facility] [address], [place] [address]- 1765 Oct, [facility] [address] [place] [address]- 4630 Oct, Personal history of venous thrombosis and embolism V12.51 [facility] [address] [place] [address] 63920- 7786 Sep, Personal history of venous thrombosis and embolism V12.51 [facility] [address] [place] [address] 25198- 8362 Sep, Personal history of venous thrombosis and embolism V12.51 [facility] [address] [place] [address] 95252- 7637 Aug, Personal history of venous thrombosis and embolism V12.51 [facility] [address] [place] [address]- 4704 Aug, Personal history of venous thrombosis and embolism V12.51 [facility] [address] [place] [address]- 1440 Aug, Personal history of venous thrombosis and embolism V12.51 [facility] [address] [place] [address]- 6759 July, Generalized anxiety disorder 300.02 ; Abdominal pain, left lower quadrant 789.04 and Personal history of venous thrombosis and embolism V12.51 [facility] [address], [place] [address]- 7032 Jun, [facility] [address] [place] [address]- 5952 Jun, [facility] [address] [place] [address]- 7094 May, [facility] [place] [facility] [address] [id number] [place] [address]- 3698 May, [facility] [place] [facility] [address] [id number] [place] [address]- 2890 May, [facility] [place] [facility] [address] [id number] [place] [address]- 0326 May, [facility] [place] [facility] [address] [id number] [place] [address]- 9960 May, [facility] [place] [facility] [address] [id number] [place] [address]- 0712 May, [facility] [place] [facility] [address] [id number] [place] [address]- 6168 May, [facility] [place] [facility] [address] [facility] [id number] [place] [address]- 8666 May, [facility] [place] [facility] [address] [id number] [place] [address]- 1826 Apr, [facility] [place] [facility] [address] [id number] [place] [address]- 6891 Apr, [facility] [place] [facility] [address] [facility] [id number] [place] [address]- 5485 Apr, [facility] [place] [facility] [address] [facility] [id number] [place] [address]- 0650 Apr, [facility] [place] [facility] [address] [id number], [place] [address]- 5749 Apr, [facility] [place] [facility] [address] [id number] [place] [address]- 9301 Mar, [facility] [place] [facility] [address] [id number] [place] [address]- 0125 Mar, [facility] [place] [facility] [address] [facility] [id number], [place] [address]- 1098 Mar, [facility] [place] [facility] [address] [id number] [place] [address]- 7321 Mar, [facility] [place] [facility] [address] [id number] [place] [address]- 8834 Mar, [facility] [place] [facility] [address] [id number] [place] [address]- 2219 Mar, [facility] [place] [facility] [address] [id number] [place] [address]- 7974 Feb, [facility] [place] [facility] [address] [id number] [place] [address]- 6851 Feb, [facility] [place] [facility] [address] [id number] [place] [address]- 7681 Feb, [facility] [place] [facility] [address] [id number] [place] [address]- 2229 Feb, [facility] [place] [facility] [address] [facility] [id number] [place] [address]- 0262 Feb, [facility] [place] [facility] [address] [id number] [place] [address]- 6995 Feb, [facility] [place] [facility] [address] [id number] [place] [address]- 2630 Feb, [facility] [place] [facility] [address] [id number] [place] [address]- 4657 Feb, [facility] [place] [facility] [address] [id number] [place] [address]- 8718 Feb, [facility] [place] [facility] [address] [id number] [place] [address]- 6000 Feb, [facility] [place] [facility] [address] [id number] [place] [address]- 8503 Jan, [facility] [place] [facility] [address] [id number] [place] [address] Jan, [facility] [place] [facility] [address] [facility] [id number] [place] [address] Jan, [facility] [place] [facility] [address] [id number] [place] [address] Jan, [facility] [place] [facility] [address] [id number] [place] [address] Jan, [facility] [place] [facility] [address] [id number] [place] [address] Jan, [facility] [place] [facility] [address] [id number] [place] [address] Jan, [facility] [place] [facility] [address] [id number] [place] [address] Jan, [facility] [place] [facility] [address] [id number] [place] [address] Jan, [facility] [place] [facility] [address] [id number] [place] [address] Jan, [facility] [place] [facility] [address] [id number] [place] [address] Dec, [facility] [place] [facility] [address] [id number] [place] [address] Dec, [facility] [place] [facility] [address] [id number] [place] [address] Dec, [facility] [place] [facility] [address] [id number] [place] [address] Dec, [facility] [place] [facility] [address] [id number] [place] [address] Dec, [facility] [place] [facility] [address] [id number] [place] [address] Dec, [facility] [place] [facility] [address] [id number] [place] [address] Dec, [facility] [place] [facility] [address] [id number] [place] [address] Dec, [facility] [place] [facility] [address] [id number] [place] [address] 8077 Dec, [facility] [place] [facility] [address] [id number] [place] [address] 3574 Dec, [facility] [place] [facility] [address] [id number] [place] [address] 1210 Dec, [facility] [place] [facility] [address] [id number] [place] [address] 6287 Dec, [facility] [place] [facility] [address] [id number] [place] [address] 0271 Dec, [facility] [place] [facility] [address] [id number] [place] [address]- 8484 Dec, [facility] [place] [facility] [address] [id number] [place] [address] 9956 Dec, [facility] [place] [facility] [address] [id number] [place] [address]- 0453 30 Nov, 2013 [facility] [place] [facility] [address] [id number] [place] [address]- 4137 30 Nov, 2013 [facility] [place] [facility] [address] [id number] [place] [address]- 2472 26 Nov, 2013 [facility] [place] [facility] [address] [id number] [place] [address]- 8500 26 Nov, 2013 [facility] [place] [facility] [address] [id number], [place] [address] 3960 24 Sep, 2013 [facility] [place] [facility] [address] [id number], [place] [address] 2937 24 Sep, 2013 [facility] [place] [facility] [address] [id number] [place] [address]- 6663 23 Sep, 2013 [facility] [place] [facility] [address] [id number] [place] [address]- 5499 23 Nov, 2013 [facility] [place] [facility] [address] [id number] [place] [address]- 9166 18 Nov, 2013 [facility] [place] [facility] [address] [id number] [place] [address]- 1856 18 Nov, 2013 [facility] [place] [facility] [address] [id number] [place] [address]- 3776 17 Nov, 2013 [facility] [place] [facility] [address] [id number] [place] [address]- 6946 17 Nov, 2013 [facility] [place] [facility] [address] [id number] [place] [address]- 9596 11 Nov, 2013 [facility] [place] [facility] [address] [id number] [place] [address] 2546 11 Nov, 2013 [facility] [place] [facility] [address] [id number] [place] [address]- 0516 10 Nov, 2013 [facility] [place] [facility] [address] [id number] [place] [address]- 5026 10 Nov, 2013 [facility] [place] [facility] [address] [id number] [place] [address]- 5130 08 Nov, 2013 [facility] [place] [facility] [address] [id number] [place] [address]- 7503 08 Nov, 2013 [facility] [place] [facility] [address] [id number] [place] [address]- 7707 Sep, 2013 [facility] [place] [facility] [address] [id number] [place] [address]- 1342 Sep, [facility] [place] [facility] [address] [id number] [place] [address]- 8400 Sep, 2013 [facility] [place] [facility] [address] [id number] [place] [address]- 2772 Sep, 2013 [facility] [place] [facility] [address] [id number] [place] [address]- 3795 Sep, [facility] [place] [facility] [address] [id number] [place] [address]- 7917 Sep, 2013 [facility] [place] [facility] [address] [id number] [place] [address]- 2164 Aug, [facility] [place] [facility] [address] [id number] [place] [address]- 7385 Aug, [facility] [place] [facility] [address] [id number] [place] [address]- 4757 Aug, [facility] [place] [facility] [address] [id number] [place] [address]- 4017 Aug, [facility] [place] [facility] [address] [id number] [place] [address]- 6311 Aug, [facility] [place] [facility] [address] [id number] [place] [address] 8498 Aug, [facility] [place] [facility] [address] [id number] [place] [address]- 4060 Aug, [facility] [place] [facility] [address] [id number] [place] [address]- 4735 Aug, [facility] [place] [facility] [address] [id number] [place] [address]- 7170 Aug, [facility] [place] [facility] [address] [id number] [place] [address]- 7803 Aug, [facility] [place] [facility] [address] [id number] [place] [address]- 1539 Aug, [facility] [place] [facility] [address] [id number] [place] [address]- 9778 July, [facility] [place] [facility] [address] [id number] [place] [address]- 0607 July, [facility] [place] [facility] [address] [id number] [place] [address] 1951 Jun, [facility] [place] [facility] [address] [id number] [place] [address]- 2792 Jun, [facility] [place] [facility] [address] [id number] [place] [address] 1945 Jun, [facility] [place] [facility] [address] [id number] [place] [address]- 5719 18 Jun, 2013 [facility] [place] [facility] [address] [id number] [place] [address]- 1034 18 Jun, 2013 [facility] [place] [facility] [address] [id number] [place] [address]- 3445 18 Jun, 2013 [facility] [place] [facility] [address] [id number] [place] [address]- 5893 15 Jun, 2013 [facility] [place] [facility] [address] [id number] [place] [address]- 4665 15 Jun, 2013 [facility] [place] [facility] [address] [id number] [place] [address]- 2074 Jun, [facility] [place] [facility] [address] [id number] [place] [address]- 5819 Jun, [facility] [place] [facility] [address] [id number] [place] [address]- 7322 Jun, [facility] [place] [facility] [address] [id number] [place] [address]- 7687 Jun, [facility] [place] [facility] [address] [id number] [place] [address]- 2423 May, [facility] [place] [facility] [address] [id number] [place] [address]- 1149 May, [facility] [place] [facility] [address] [id number] [place] [address]- 6508 May, [facility] [place] [facility] [address] [id number] [place] [address]- 3788 May, [facility] [place] [facility] [address] [id number] [place] [address]- 9203 May, [facility] [place] [facility] [address] [id number] [place] [address]- 0855 19 May, 2013 [facility] [place] [facility] [address] [id number] [place] [address]- 9605 May, [facility] [place] [facility] [address] [id number] [place] [address]- 0949 May, [facility] [place] [facility] [address] [id number] [place] [address]- 0824 May, [facility] [place] [facility] [address] [id number] [place] [address]- 6611 May, [facility] [place] [facility] [address] [id number] [place] [address]- 4737 May, [facility] [place] [facility] [address] [id number] [place] [address]- 5913 May, [facility] [place] [facility] [address] [id number] [place] [address]- 7729 Apr, [facility] [place] [facility] [address] [facility] [id number] [place] [address]- 1612 Apr, [facility] [place] [facility] [address] [id number] [place] [address]- 4398 Apr, [facility] [place] [facility] [address] [id number] [place] [address]- 7593 Apr, [facility] [place] [facility] [address] [facility] [id number] [place] [address]- 5700 Apr, [facility] [place] [facility] [address] [facility] [id number] [place] [address]- 2816 Apr, [facility] [place] [facility] [address] [facility] [id number] [place] [address]- 1029 Apr, [facility] [place] [facility] [address] [id number] [place] [address]- 2455 Apr, [facility] [place] [facility] [address] [id number] [place] [address]- 2420 Apr, [facility] [place] [facility] [address] [facility] [id number] [place] [address]- 9360 Apr, [facility] [place] [facility] [address] [facility] [id number] [place] [address]- 8390 Apr, [facility] [place] [facility] [address] [id number] [place] [address]- 9346 Apr, [facility] [place] [facility] [address] [id number] [place] [address]- 5251 Apr, 2013 [facility] [place] [facility] [address] [id number] [place] [address]- 6996 Apr, [facility] [place] [facility] [address] [id number] [place] [address]- 7046 Apr, [facility] [place] [facility] [address] [id number] [place] [address]- 5197 Apr, [facility] [place] [facility] [address] [id number] [place] [address]- 3883 Apr, [facility] [place] [facility] [address] [facility] [id number] [place] [address]- 2973 Jan, [facility] [place] [facility] [address] [id number] [place] [address]- 7970 Jan, [facility] [place] [facility] [address] [facility] [id number] [place] [address]- 1427 Jan, [facility] [place] [facility] [address] [facility] [id number] [place] [address]- 4768 Jan, [facility] [place] [facility] [address] [id number] [place] [address]- 6912 Jan, [facility] [place] [facility] [address] [id number] [place] [address]- 6458 Jan, [facility] [place] [facility] [address] [id number] [place] [address]- 3420 Jan, [facility] [place] [facility] [address] [facility] [id number] [place] [address]- 7178 Dec, [facility] [place] [facility] [address] [id number] [place] [address]- 9117 Dec, [facility] [place] [facility] [address] [id number] [place] [address]- 8266 Dec, [facility] [place] [facility] [address] [id number] [place] [address]- 1188 Nov, [facility] [place] [facility] [address] [id number] [place] [address]- 8770 Nov, [facility] [place] [facility] [address] [id number] [place] [address]- 5468 Nov, [facility] [place] [facility] [address] [id number] [place] [address]- 0529 Nov, [facility] [place] [facility] [address] [id number] [place] [address]- 7500 Oct, [facility] [place] [facility] [address] [id number] [place] [address]- 6188 Oct, [facility] [place] [facility] [address] [id number] [place] [address]- 0922 Oct, [facility] [place] [facility] [address] [id number] [place] [address]- 0601 Oct, [facility] [place] [facility] [address] [id number] [place] [address]- 8716 Oct, [facility] [place] [facility] [address] [id number] [place] [address]- 3288 Sep, [facility] [place] [facility] [address] [id number] [place] [address]- 2391 Sep, [facility] [place] [facility] [address] [id number] [place] [address]- 3542 Sep, [facility] [place] [facility] [address] [id number] [place] [address]- 8477 Sep, [facility] [place] [facility] [address] [id number] [place] [address]- 2962 Sep, [facility] [place] [facility] [address] [id number] [place] [address]- 2546 Sep, [facility] [address] [id number] [place] [address]- 1081 Sep, [facility] [address] [id number] [place] [address]- 2608 Aug, [facility] [address] [id number] [place] [address]- 8751 Aug, [facility] [place] [facility] [address] [id number] [place] [address]- 4982 July, [facility] [address] [id number] [place] [address]- 8002 Jun, [facility] [place] [facility] [address] [id number] [place] [address]- 6293 Jun, [facility] [address] [id number] [place] [address]- 2906 Jun, [facility] [place] [facility] [address] [id number] [place] [address]- 8648 Apr, [facility] [address] [id number] [place] [address]- 1353 Apr, [facility] [place] [facility] [address] [id number] [place] [address]- 4262 Apr, [facility] [address] [id number] [place] [address]- 3267 Mar, [facility] [place] [facility] [address] [id number] [place] [address]- 4647 Mar, [facility] [place] [facility] [address] [id number] [place] [address]- 3189 Mar, [facility] [place] [facility] [address] [id number] [place] [address]- 4827 Mar, [facility] [place] [facility] [address] [id number] [place] [address]- 1866 Mar, [facility] [place] [facility] [address] [id number] [place] [address]- 2899 14 Feb, 2012 [facility] [place] [facility] [address] [id number] [place] [address]- 1094 14 Feb, 2012 [facility] [place] [facility] [address] [id number] [place] [address]- 1776 13 Jan, 2012 [facility] [place] [facility] [address] [id number] [place] [address]- 5495 13 Jan, 2012 [facility] [place] [facility] [address] [id number] [place] [address]- 4047 13 Jan, 2012 [facility] [place] [facility] [address] [id number] [place] [address]- 1180 13 Jan, 2012 [facility] [place] [facility] [address] [id number] [place] [address]- 8778 07 Jan, 2012 [facility] [place] [facility] [address] [id number] [place] [address]- 4395 Jan, [facility] [place] [facility] [address] [id number] [place] [address]- 9682 06 Jan, 2012 [facility] [place] [facility] [address] [id number] [place] [address]- 6203 31 Dec, 2011 [facility] [place] [facility] [address] [facility] [id number] [place] [address]- 8389 31 Dec, 2011 [facility] [place] [facility] [address] [id number] [place] [address]- 6680 30 Dec, 2011 [facility] [place] [facility] [address] [id number] [place] [address]- 9229 30 Dec, 2011 [facility] [place] [facility] [address] [id number] [place] [address]- 3756 30 Dec, 2011 [facility] [place] [facility] [address] [facility] [id number] [place] [address]- 5386 30 Dec, 2011 [facility] [place] [facility] [address] [id number] [place] [address]- 0880 Dec, [facility] [place] [facility] [address] [id number] [place] [address]- 2866 Dec, [facility] [place] [facility] [address] [id number] [place] [address]- 4321 Dec, [facility] [place] [facility] [address] [id number] [place] [address]- 2648 Dec, [facility] [place] [facility] [address] [id number] [place] [address]- 1324 Oct, [facility] [place] [facility] [address] [id number] [place] [address]- 4484 Oct, [facility] [place] [facility] [address] [id number] [place] [address]- 1815 Aug, [facility] [place] [facility] [address] [id number] [place] [address]- 0714 Aug, [facility] [place] [facility] [address] [id number] [place] [address]- 0812 July, [facility] [place] [facility] [address] [id number] [place] [address]- 2313 Jun, [facility] [place] [facility] [address] [id number] [place] [address]- 5031 Jun, [facility] [place] [facility] [address] [id number] [place] [address]- 6474 May, [facility] [place] [facility] [address] [id number], [place] [address]- 6075 Apr, [facility] [place] [facility] [address] [id number] [place] [address]- 8041 Apr, [facility] [place] [facility] [address] [id number], [place] [address]- 3826 Mar, [facility] [place] [facility] [address] [id number] [place] [address]- 4026 Mar, [facility] [place] [facility] [address] [id number] [place] [address]- 0748 19 Feb, 2011 [facility] [address] [id number] [place] [address]- 3406 15 Feb, 2011 [facility] [place] [facility] [address] [id number] [place] [address] 2546 13 Feb, 2011 [facility] [address] [id number] [place] [address]- 4256 13 Feb, 2011 [facility] [place] [facility] [address] [id number] [place] [address] 254 Jan, [facility] [address] [id number] [place] [address]- 5401 17 Dec, 2010 [facility] [address] [id number] [place] [address]- 3833 08 Feb, 2010 [facility] [address] [id number] [place] [address]- 5783 02 Feb, 2010 [facility] [address] [id number] [place] [address]- 4244 Feb, [facility] [place] [facility] [address] [id number] [place] [address]- 2157 Feb, [facility] [address] [facility] [id number] [place] [address]- 7238 15 Dec, 2009 [facility] [place] [facility] [address] [id number] [place] [address]- 0637 15 Dec, 2009 [facility] [place] [facility] [address] [id number] [place] [address]- 3749 Oct, [facility] [place] [facility] [address] [id number] [place] [address]- 3440 15 Jun, 2009 [facility] [place] [facility] [address] [id number] [place] [address] 2549 Feb, [facility] [place] [facility] [address] [id number] [place] [address]- 5261 Feb, [facility] [address] [facility] [id number] [place] [address]- 3236 Feb, [facility] [address] [facility] [id number], [place] [address]- 7307 Dec, IMMUNIZATIONS No Known Immunizations SOCIAL HISTORY Never Assessed REASON FOR VISIT Lab (walk-in)--[facility] PLAN OF CARE VITAL SIGNS MEDICATIONS Unknown Medications RESULTS Name Result Date Reference Range INR (IN HOUSE) 2017-06-01 INR 4.4 1.10 - 3.30 PREVIOUS INR 2.6 CURRENT COUMADIN DOSE 5 mg daily NEW COUMADIN DOSE Lot # [id number] Exp date 01/2018 PROCEDURES Procedure Date Ordered Result Body Site PROTHROMBIN TIME June 01, 2017 INSTRUCTIONS MEDICATIONS ADMINISTERED No Known Medications MEDICAL (GENERAL) HISTORY Type Description Date Medical History obesity Medical History Hematologic disorder factor clotting problem Medical History DVT's Surgical History Lap Band 10/2012 Surgical History section 1985, 1987 Surgical History cholecystectomy Surgical History Shoup Filter 06/2009 Surgical History Left leg exploratory surgery r/t clot 1987 Surgical History left shoulder surgery 09/14/17 Hospitalization History Ruptured Ovarian Cyst with abd bleeding 11/2009
[2018-08-02] MEDS ORDERED: ceFAZolin 2 GM IV Premixed 50 ML IV ONE (09:00)
--- OUTSIDE RECORDS SUMMARY | 2018-08-02 09:00 | XMS REPORT ---
Author Author ASHLEY BRUNO [employer] Address Unknown Phone Unavailable Care Team Providers Care Repairer Handtools Name Role Phone ASHLEY BRUNO CP Unavailable Allergies No Known Allergies Problems Problem Type Condition Code Onset Dates Condition Status Problem Peripheral edema R60.9 Active Assessment History of DVT (deep vein thrombosis) Z86.718 Active Problem Generalized anxiety disorder F41.1 Active Problem Hypertriglyceridemia E78.1 Active Problem History of DVT (deep vein thrombosis) Z86.718 Active Problem Presence of IVC filter Z95.828 Active Problem penitentiary (current) use of anticoagulants Z79.01 Active Problem Pelvic pain R10.2 Active Problem 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 Active Medications No Known Medications Procedures Procedure Coding System Code Date PROTHROMBIN TIME CPT-4 79855 Nov 20, 2015 Results No Known Results Summary Purpose [employer] Submission
--- OUTSIDE RECORDS SUMMARY | 2018-08-02 09:00 | XMS REPORT ---
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 Active 426963914 Problem Factor V Leiden D68.51 Active 917849091 Problem History of DVT (deep vein thrombosis) Z86.718 Active 715484452 Problem Excessive daytime sleepiness G47.19 Active 228387178929 Problem Gastroesophageal reflux disease, esophagitis presence not specified K21.9 Active 456882904 Problem Pelvic pain R10.2 Active 87903664 Problem 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 Active 937350361 Problem Presence of IVC filter Z95.828 Active 247091303 Problem Peripheral edema R60.9 Active 255588041 ALLERGIES No Information SOCIAL HISTORY Never Assessed PLAN OF CARE VITAL SIGNS MEDICATIONS Unknown Medications RESULTS No Results PROCEDURES No Known procedures IMMUNIZATIONS No Known Immunizations MEDICAL (GENERAL) HISTORY Type Description Date Medical History obesity Medical History Hematologic disorder factor clotting problem Medical History DVT's Surgical History Lap Band 10/2012 Surgical History section 1985, 1987 Surgical History cholecystectomy Surgical History Shiro Filter 06/2009 Surgical History Left leg exploratory surgery r/t clot 1987 Hospitalization History Ruptured Ovarian Cyst with abd bleeding 11/2009
--- OUTSIDE RECORDS SUMMARY | 2018-08-02 09:00 | XMS REPORT ---
Author Author ASHLEY BRUNO eClinicalWorks Address Unknown Phone Unavailable Care Team Providers Care Continuity Coordinator Name Role Phone ASHLEY BRUNO CP Unavailable Allergies No Known Allergies Problems Problem Type Condition Code Onset Dates Condition Status Problem Peripheral edema R60.9 Active Problem Generalized anxiety disorder F41.1 Active Problem Hypertriglyceridemia E78.1 Active Problem History of DVT (deep vein thrombosis) Z86.718 Active Problem Presence of IVC filter Z95.828 Active Problem long term care pharmacist (current) use of anticoagulants Z79.01 Active Problem Pelvic pain R10.2 Active Problem 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 Active Medications No Known Medications Results No Known Results Summary Purpose eClinicalWorks Submission
--- OUTSIDE RECORDS SUMMARY | 2018-08-02 09:00 | XMS REPORT ---
Author Author ASHLEY BRUNO eClinical[employer] Address Unknown Phone Unavailable Care Team Providers Care Pharmacy Buyer Name Role Phone ASHLEY BRUNO Unavailable Allergies No Known Allergies Problems Problem Type Condition Code Onset Dates Condition Status Problem Peripheral edema R60.9 Active Assessment Peripheral edema R60.9 Active Problem Generalized anxiety disorder F41.1 Active Problem Hypertriglyceridemia E78.1 Active Problem History of DVT (deep vein thrombosis) Z86.718 Active Problem Presence of IVC filter Z95.828 Active Problem terminal clerk (current) use of anticoagulants Z79.01 Active Problem Pelvic pain R10.2 Active Problem 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 Active Medications Medication Code System Code Instructions Start Date End Date Status Dosage Potassium Chloride ER [facility] [address]-87 20 MEQ Orally Once a day then come in for fasting lab draw Apr 30, 2015 May 07, 2015 1 tablet with food Results No Known Results Summary Purpose eClinicalWorks Submission
--- OUTSIDE RECORDS SUMMARY | 2018-08-02 09:00 | XMS REPORT ---
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 Active 997135496 Problem Factor V Leiden D68.51 Active 754159222 Problem History of DVT (deep vein thrombosis) Z86.718 Active 123004717 Problem Excessive daytime sleepiness G47.19 Active 924886993843 Problem Gastroesophageal reflux disease, esophagitis presence not specified K21.9 Active 779717633 Problem Pelvic pain R10.2 Active 46475762 Problem 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 Active 046737394 Problem Presence of IVC filter Z95.828 Active 780315355 Problem Peripheral edema R60.9 Active 864753896 ALLERGIES No Information SOCIAL HISTORY Never Assessed PLAN OF CARE VITAL SIGNS MEDICATIONS Unknown Medications RESULTS Name Result Date Reference Range INR (IN HOUSE) 2016-06-02 INR 3.4 1.10 - 3.30 PREVIOUS INR 3.6 CURRENT COUMADIN DOSE 6 mg qid NEW COUMADIN DOSE Lot # [id number] Exp date PROCEDURES Procedure Date Ordered Result Body Site PROTHROMBIN TIME June 02, 2016 IMMUNIZATIONS No Known Immunizations MEDICAL (GENERAL) HISTORY Type Description Date Medical History obesity Medical History Hematologic disorder factor clotting problem Medical History DVT's Surgical History Lap Band 10/2012 Surgical History section 1985, 1987 Surgical History cholecystectomy Surgical History Pender Filter 06/2009 Surgical History Left leg exploratory surgery r/t clot 1987 Hospitalization History Ruptured Ovarian Cyst with abd bleeding 11/2009
--- OUTSIDE RECORDS SUMMARY | 2018-08-02 09:00 | XMS REPORT ---
Author Author KIANA ASHLEY [facility] Address [address] [place] [address] Care Team Providers Care Director Of Physical Security Name Role Phone GILSON BRUNOHANY Unavailable PROBLEMS Type Condition ICD9-CM Code LGI27-UQ Code Onset Dates Condition Status SNOMED Code Problem Hypertriglyceridemia E78.1 Active 397072914 Problem Generalized anxiety disorder F41.1 Active 373998159 Problem care home (current) use of anticoagulants Z79.01 Active 029196882 Problem Factor V Leiden D68.51 Active 438947588 Problem History of DVT (deep vein thrombosis) Z86.718 Active 373816743 Problem Excessive daytime sleepiness G47.19 Active 100195205550 Problem Gastroesophageal reflux disease, esophagitis presence not specified K21.9 Active 078702090 Problem Pelvic pain R10.2 Active 96265460 Problem 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 Active 459696449 Problem Presence of IVC filter Z95.828 Active 137902518 Problem Peripheral edema R60.9 Active 337006636 ALLERGIES No Information ENCOUNTERS Encounter Location Date Diagnosis [place] [address] [address]356- [address]44 Jun, [place] [address] 07173- 6942 May, Subacromial bursitis of left shoulder joint M75.52 [place] [address] 50972- 7717 May, [place] [address] 55055- 6894 May, Hypertriglyceridemia E78.1 ; care home (current) use of anticoagulants Z79.01 and Excessive daytime sleepiness G47.19 [place] [address] 36558- 9646 May, History of DVT (deep vein thrombosis) Z86.718 ; Generalized anxiety disorder F41.1 ; Hypertriglyceridemia E78.1 ; 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 ; Subacromial bursitis of left shoulder joint M75.52 and Excessive daytime sleepiness G47.19 [place] [address] [place] [id number] [place] [address] 38688 2546 May, [place] [address] 43610 2546 May, 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 [place] [address] 30683 2546 23 Apr, 2017 care home (current) use of anticoagulants Z79.01 [place] [address] [place] [id number] [place] [address] 81673 2546 Apr, 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 [place] [address] [place] [id number] [place] [address] 45020 2546 Apr, 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 [place] [address] [place] [id number] [place] [address] 71020 2546 16 Apr, 2017 [place] [address] [place] [id number] [place] [address] 44408 2546 16 Apr, 2017 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 [place] [address] [place] [id number] [place] [address] 30928 2546 13 Apr, 2017 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 [place] [address] [place] [id number] [place] [address] 05727 2546 Apr, 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 [place] [address] [place] [id number] [place] [address] 92296 2546 Apr, care home (current) use of anticoagulants Z79.01 [facility] [address] [place] [address] 68225- 8206 07 Apr, 2017 care home (current) use of anticoagulants Z79.01 [facility] [address] [place] [id number] [place] [address] 32286 2546 Apr, 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 [place] [address] [place] [id number] [place] [address] 77365- 2416 Mar, 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 [place] [address] [place] [id number] [place] [address] 61229- 0236 Mar, [place] [address] 39194- 5506 Mar, 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 [facility] [address] [id number] Jan, Dental examination Z01.20 [facility] [address] [id number] Jan, [place] [address] 18067- 6914 Jan, care home (current) use of anticoagulants Z79.01 [place] [address] [place] [id number] [place] [address] 64556- 2104 17 Jan, 2017 History of DVT (deep vein thrombosis) Z86.718 [place] [address] [place] [id number] [place] [address] 15410- 7230 07 Jan, 2017 Generalized anxiety disorder F41.1 and Peripheral edema R60.9 [place] [address] 52920- 4189 Nov, History of DVT (deep vein thrombosis) Z86.718 [place] [address] [place] [id number] [place] [address] 20866- 0586 Nov, 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 [facility] [address] [address] Nov, Acute non-recurrent maxillary sinusitis J01.00 [facility] [address] [place] [id number] [place] [address] 02263- 8255 Oct, care home (current) use of anticoagulants Z79.01 [facility] [address] [place] [id number] [place] [address] 21482- 1413 Oct, Personal history of venous thrombosis and embolism Z86.718 [place] [address] [place] [id number] [place] [address] 26875- 0371 Sep, [place] [address] [place] [id number] [place] [address] 52767- 2992 Sep, Personal history of venous thrombosis and embolism Z86.718 [place] [address] [place] [id number] [place] [address] 47741- 7258 Sep, care home (current) use of anticoagulants Z79.01 [place] [address] [place] [id number] [place] [address] 19524- 4576 Sep, care home (current) use of anticoagulants Z79.01 [place] [address] [place] [id number] [place] [address] 53547- 8875 Sep, Generalized anxiety disorder F41.1 and History of DVT (deep vein thrombosis) Z86.718 [place] [address] [place] [id number] [place] [address] 07298- 0255 Aug, History of DVT (deep vein thrombosis) Z86.718 ; Generalized anxiety disorder F41.1 ; care home (current) use of anticoagulants Z79.01 ; Pelvic pain R10.2 ; Hypertriglyceridemia E78.1 ; Excessive daytime sleepiness G47.19 ; Colon cancer screening Z12.11 ; Screening for breast cancer Z12.39 ; Peripheral edema R60.9 and Gastroesophageal reflux disease, esophagitis presence not specified K21.9 [facility] [address] [place] [id number] [place] [address] 14567- 7216 Aug, [facility] [address] [address]- 1286 July, [facility] [address] [place] [id number] [place] [address] 37479- 6598 July, History of DVT (deep vein thrombosis) Z86.718 [facility] [address] [place] [id number] [place] [address] 30885- 0111 Jun, Generalized anxiety disorder F41.1 [facility] [address] [place] [id number] [place] [address] 94243- 0693 Jun, History of DVT (deep vein thrombosis) Z86.718 [place] [address] [place] [id number] [place] [address] 17855- 9393 Jun, History of DVT (deep vein thrombosis) Z86.718 [place] [address] [place] [id number] [place] [address] 60323- 3207 Jun, History of DVT (deep vein thrombosis) Z86.718 [place] [address] [place] [address] 55704- 2049 Jun, History of DVT (deep vein thrombosis) Z86.718 [place] [address] [place] [id number] [place] [address] 77539- 6839 May, History of DVT (deep vein thrombosis) Z86.718 [place] [address] [place] [id number] [place] [address] 93646- 7309 May, care home (current) use of anticoagulants Z79.01 [place] [address] [place] [address] 20582- 8067 May, care home (current) use of anticoagulants Z79.01 [place] [address] [place] [address] 25440- 2259 May, History of DVT (deep vein thrombosis) Z86.718 [facility] [address] [place] [address] 97951 -2601 27 Apr, 2016 Bacterial conjunctivitis of left eye H10.9 and H/O motion sickness Z87.898 [place] [address] 87158- 0256 24 Apr, 2016 History of DVT (deep vein thrombosis) Z86.718 [place] [address] [place] [id number] [place] [address] 23631- 9266 23 Apr, 2016 History of DVT (deep vein thrombosis) Z86.718 [place] [address] 14033- 4668 15 Apr, 2016 History of DVT (deep vein thrombosis) Z86.718 [place] [address] 46716- 7282 14 Apr, 2016 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 [place] [address] 09587- 0520 Mar, [place] [address] 76679- 4344 Mar, 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 [place] [address] 01367- 5395 Mar, Hypertriglyceridemia E78.1 and 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 [place] [address] [place] [id number] [place] [address] 27914- 4010 Feb, 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 [place] [address] [place] [id number] [place] [address] 14989 2546 Feb, care home (current) use of anticoagulants Z79.01 [place] [address] 32452- 1376 Feb, 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 [place] [address] 40739- 7351 Dec, [facility] [address] [place] [id number] [place] [address] 35619- 0308 Nov, [place] [address] 17179- 1677 Nov, History of DVT (deep vein thrombosis) Z86.718 ; Tremulousness R25.1 ; Generalized anxiety disorder F41.1 ; Peripheral edema R60.9 and Hypertriglyceridemia E78.1 [place] [address] 12140- 9599 Oct, History of DVT (deep vein thrombosis) Z86.718 [place] [address] 43777- 9642 Oct, [place] [address] 33240- 4415 Sep, History of DVT (deep vein thrombosis) Z86.718 [place] [address] [place] [id number] [place] [address] 02893- 9126 Sep, care home (current) use of anticoagulants Z79.01 [place] [address] [place] [id number] [place] [address] 72505- 1885 July, [place] [address] 65684- 2337 July, 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 [place] [address] [place] [id number] [place] [address] 73928- 6082 July, 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 [place] [address] [place] [id number] [place] [address] 61051- 7503 Jun, 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 [facility] [address] [place] [id number] [place] [address] 83490 -7729 Jun, Coccyx pain M53.3 ; Encounter for therapeutic drug level monitoring Z51.81 and 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 use 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.01 [facility] [address] [place] [id number] [place] [address] 06168- 2496 May, Abnormal mammogram R92.8 [facility] [address] [place] [id number] [place] [address] 11322 -5572 May, [facility] [address] [place] [id number] [place] [address] 21916 -6833 May, Acute vaginitis N76.0 and Encounter for other screening for malignant neoplasm of breast Z12.39 [place] [address] [place] [id number] [place] [address] 40117- 5110 Apr, [place] [address] 45773- 3756 Apr, [place] [address] [place] [id number] [place] [address] 20380- 3376 Apr, Peripheral edema R60.9 [place] [address] [place] [id number] [place] [address] 94625- 7403 Apr, care home (current) use of anticoagulants Z79.01 [place] [address] [place] [id number] [place] [address] 74901- 3859 Apr, Peripheral edema R60.9 and 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 [place] [address] [place] [id number] [place] [address] 45752- 3533 Apr, 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 [place] [address] [place] [id number] [place] [address] 27708- 2546 Apr, [place] [address] [place] [id number] [place] [address] 66144- 2546 Apr, 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 [place] [address] [place] [id number] [place] [address] 37011- 2546 Apr, Peripheral edema R60.9 [place] [address] [place] [address] 09080- 1062 Mar, care home (current) use of anticoagulants Z79.01 [place] [address] [place] [id number] [place] [address] 47689- 6064 Mar, care home (current) use of anticoagulants Z79.01 and Hypertriglyceridemia E78.1 [place] [address] 85860- 1823 Mar, 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 [place] [address] [place] [id number] [place] [address] 54197- 9504 Mar, care home (current) use of anticoagulants Z79.01 [place] [address] [place] [id number] [place] [address] 74275- 6179 Mar, [place] [address] [place] [id number] [place] [address] 89547- 4662 Mar, 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 ; Hypertriglyceridemia E78.1 ; Personal history of venous thrombosis and embolism Z86.718 and Lump R22.9 [place] [address] [place] [id number] [place] [address] 96121- 9640 Mar, Personal history of venous thrombosis and embolism Z86.718 [place] [address] [place] [id number] [place] [address] 64000- 3660 Mar, Personal history of venous thrombosis and embolism Z86.718 [place] [address] [place] [id number] [place] [address] 29684- 3497 Mar, [place] [address] [place] [id number] [place] [address] 12135- 7314 Dec, Personal history of venous thrombosis and embolism Z86.718 [place] [address] [place] [id number] [place] [address] 99134- 6134 Dec, Personal history of venous thrombosis and embolism V12.51 [place] [address], [place] [address]- 5124 28 Nov, 2014 Personal history of venous thrombosis and embolism V12.51 [facility] [address] [facility] [id number] 4376 Nov, Personal history of venous thrombosis and embolism V12.51 [facility] [address] [facility] [id number], [place] [address]- 4776 17 Nov, 2014 Personal history of venous thrombosis and embolism V12.51 [facility] [address] [facility] [id number], [place] [address]- 7272 Nov, Personal history of venous thrombosis and embolism V12.51 [facility] [address] [facility] [id number], [place] [address]- 4481 Nov, [facility] [address], [place] [address]- 4220 Oct, Dysuria 788.1 [facility] [address] [place] [id number] [address]- 0846 Oct, Personal history of venous thrombosis and embolism V12.51 [facility] [address], [place] [address]- 7625 Oct, [facility] [address], [place] [address]- 8445 Oct, Personal history of venous thrombosis and embolism V12.51 [facility] [address] [facility] [id number], [place] [address]- 0005 Sep, Personal history of venous thrombosis and embolism V12.51 [facility] [address] [facility] [id number], [place] [address]- 0437 Sep, Personal history of venous thrombosis and embolism V12.51 [facility] [address] [facility] [id number] 67[place]- 4219 Aug, Personal history of venous thrombosis and embolism V12.51 [facility] [address], [place] [address]- 3471 Aug, Personal history of venous thrombosis and embolism V12.51 [facility] [address] [facility] [id number]- 9084 15 Aug, 2014 Personal history of venous thrombosis and embolism V12.51 [facility] [address] [facility] [id number], [place] [address]- 7169 July, Generalized anxiety disorder 300.02 ; Abdominal pain, left lower quadrant 789.04 and Personal history of venous thrombosis and embolism V12.51 [facility] [address] [facility] [id number], [place] [address]- 6932 Jun, [facility] [address] [facility] [id number] [place] [address] 29360- 3544 Jun, [facility] [address]- 9413 May, [facility] [address], [place] [address]- 0335 May, [facility] [address], [place] [address]- 5323 May, [facility] [address], [place] [address]- 8866 May, [facility] [address], [place] [address]- 5074 May, [facility] [address] [place] [id number] 6723 May, [facility] [address] [place] [id number] 2792 May, [facility] [address], [place] [address]- 1083 May, [facility] [address] [place] [id number], [place] [address]- 4282 Apr, [facility] [address], [place] [address]- 1062 Apr, [facility] [address] [id number] [place] [address]- 1971 Apr, [facility] [place] [facility] [address] [id number] [place] [address]- 2446 Apr, [facility] [place] [facility] [address] [id number] [place] [address]- 7706 Apr, [facility] [place] [facility] [address] [id number] [place] [address]- 9268 Mar, [facility] [place] [facility] [address] [id number] [place] [address]- 1928 Mar, [facility] [place] [facility] [address] [id number] [place] [address]- 4638 Mar, [facility] [address] [id number] [place] [address]- 1084 Mar, [facility] [address] [id number] [place] [address]- 6829 Mar, [facility] [address] [id number] [place] [address]- 9379 Mar, [facility] [address] [facility] [id number] [place] [address]- 1447 Feb, [facility] [place] [facility] [address] [id number] [place] [address]- 3205 Feb, [facility] [place] [facility] [address] [id number] [place] [address]- 2040 Feb, [facility] [place] [facility] [address] [id number] [place]- 5304 Feb, [facility] [place] [facility] [address] [id number] [place] 7796 Feb, [facility] [place] [facility] [address] [facility] [id number] [place] [address]- 0267 Feb, [facility] [place] [facility] [address] [id number] [place] 4048 Feb, [facility] [place] [facility] [address] [id number] [place] 4847 Feb, [facility] [place] [facility] [address] [id number] [place] 9958 Feb, [facility] [place] [facility] [address] [id number] [place] [address]- 8407 Feb, [facility] [place] [facility] [address] [id number] [place] [address]- 1106 Jan, [facility] [place] [facility] [address] [id number] [place] [address]- 4351 Jan, [facility] [place] [facility] [address] [id number] [place] [address]- 8935 Jan, [facility] [place] [facility] [address] [id number] [place] [address]- 0843 Jan, [facility] [place] [facility] [address] [id number] [place] [address]- 3845 Jan, [facility] [place] [facility] [address] [id number] [place] [address]- 9154 Jan, [facility] [place] [facility] [address] [id number] [place] [address]- 2040 Jan, [facility] [place] [facility] [address] [id number] [place] [address]- 3736 Jan, [facility] [place] [facility] [address] [id number] [place] [address]- 5484 Jan, [facility] [place] [facility] [address] [id number] [place] [address]- 9120 Jan, [facility] [place] [facility] [address] [id number] [place] [address]- 3252 Dec, [facility] [place] [facility] [address] [id number] [place] [address]- 9091 Dec, [facility] [place] [facility] [address] [id number] [place] [address]- 6641 Dec, [facility] [place] [facility] [address] [id number] [place] [address]- 3192 Dec, [facility] [place] [facility] [address] [id number] [place] [address]- 8467 Dec, [facility] [place] [facility] [address] [id number] [place] [address]- 2912 Dec, [facility] [place] [facility] [address] [id number] [place] [address]- 3377 Dec, [facility] [place] [facility] [address] [id number] [place] [address] Dec, [facility] [place] [facility] [address] [id number] [place] [address] Dec, [facility] [place] [facility] [address] [id number], [place] [address] Dec, [facility] [place] [facility] [address] [id number] [place] [address] Dec, [facility] [place] [facility] [address] [id number], [place] [address] Dec, [facility] [place] [facility] [address] [id number], [place] [address] Dec, [facility] [place] [facility] [address] [id number], [place] [address] Dec, [facility] [place] [facility] [address] [id number] [place] [address] Dec, [facility] [place] [facility] [address] [id number], [place] [address] Nov, [facility] [place] [facility] [address] [id number], [place] [address] Nov, [facility] [place] [facility] [address] [id number] [place] [address] 26 Sep, 2013 [facility] [place] [facility] [address] [id number] [place] [address] 26 Sep, 2013 [facility] [place] [facility] [address] [id number] [place] [address] 24 Sep, 2013 [facility] [place] [facility] [address] [id number] [place] [address] 24 Sep, 2013 [facility] [place] [facility] [address] [id number] [place] [address] 23 Sep, 2013 [facility] [place] [facility] [address] [id number] [place] [address] 23 Sep, 2013 [facility] [place] [facility] [address] [id number] [place] [address] 18 Sep, 2013 [facility] [place] [facility] [address] [id number] [place] [address] 18 Nov, 2013 [facility] [place] [facility] [address] [id number] [place] [address] 17 Sep, 2013 [facility] [place] [facility] [address] [id number] [place] [address] 2540 17 Sep, 2013 [facility] [place] [facility] [address] [id number] [place] [address] 254 11 Nov, 2013 [facility] [place] [facility] [address] [id number] [place] [address] 2546 11 Sep, 2013 [facility] [place] [facility] [address] [id number] [place] [address] 10 Sep, 2013 [facility] [place] [facility] [address] [id number] [place] [address]46 10 Sep, 2013 [facility] [place] [facility] [address] [id number] [place] [address] 08 Sep, 2013 [facility] [place] [facility] [address] [id number] [place] [address] Nov, [facility] [place] [facility] [address] [id number] [place] [address] Sep, [facility] [place] [facility] [address] [id number] [place] [address] Sep, [facility] [place] [facility] [address] [id number] [place] [address] Sep, [facility] [place] [facility] [address] [id number] [place] [address] Sep, [facility] [place] [facility] [address] [id number] [place] [address] Sep, [facility] [place] [facility] [address] [address] [id number] [place] [address] Sep, [facility] [place] [facility] [address] [id number] [place] [address] Aug, [facility] [place] [facility] [address] [id number] [place] [address] Aug, [facility] [place] [facility] [address] [id number] [place] [address]276 Aug, [facility] [place] [facility] [address] [id number] [place] [address] 6[address] Aug, [facility] [place] [facility] [address] [id number] [place] [address] 4262 Aug, [facility] [place] [facility] [address] [id number] [place] [address] 0178 Aug, [facility] [place] [facility] [address] [id number] [place] [address] 7179 Aug, [facility] [place] [facility] [address] [id number] [place] [address] 5201 Aug, [facility] [place] [facility] [address] [id number] [place] [address]- 7495 Aug, [facility] [place] [facility] [address] [id number] [place] [address] 2246 Aug, [facility] [place] [facility] [address] [id number] [place] [address] 7190 Aug, [facility] [place] [facility] [address] [id number] [place] [address] 1635 July, [facility] [place] [facility] [address] [id number] [place] [address]- 9488 July, [facility] [place] [facility] [address] [id number] [place] [address] 6702 Jun, [facility] [place] [facility] [address] [id number] [place] [address] 8830 Jun, [facility] [place] [facility] [address] [id number] [place] [address]- 9509 Jun, [facility] [place] [facility] [address] [id number] [place] [address]- 0533 Jun, [facility] [place] [facility] [address] [id number] [place] [address]- 5338 Jun, [facility] [place] [facility] [address] [id number] [place] [address]- 6726 Jun, [facility] [place] [facility] [address] [id number] [place] [address]- 1538 Jun, [facility] [place] [facility] [address] [id number] [place] [address]- 8728 Jun, [facility] [place] [facility] [address] [id number] [place] [address]- 2746 Jun, [facility] [place] [facility] [address] [id number] [place] [address]- 2401 Jun, [facility] [place] [facility] [address] [id number] [place] [address]- 0037 Jun, [facility] [place] [facility] [address] [id number] [place] [address]- 3966 Jun, [facility] [place] [facility] [address] [id number] [place] [address]- 0463 May, [facility] [place] [facility] [address] [id number] [place] [address]- 6206 May, [facility] [place] [facility] [address] [id number] [place] [address] 3176 May, [facility] [place] [facility] [address] [id number] [place] [address]- 7846 May, [facility] [place] [facility] [address] [id number] [place] [address] 2506 May, [facility] [place] [facility] [address] [id number] [place] [address]- 9331 May, [facility] [place] [facility] [address] [id number] [place] [address]- 0365 May, [facility] [place] [facility] [address] [id number] [place] [address]- 9192 May, [facility] [place] [facility] [address] [id number] [place] [address]- 54[address] May, [facility] [place] [facility] [address] [id number] [place] [address]- 1196 May, [facility] [place] [facility] [address] [id number] [place] [address] 3063 May, [facility] [place] [facility] [address] [id number] [place] [address]- 1448 May, [facility] [place] [facility] [address] [id number] [place] [address]- 9242 Apr, [facility] [place] [facility] [address] [id number] [place] [address]- 0759 Apr, [facility] [place] [facility] [address] [id number] [place] [address]- 0851 Apr, [facility] [place] [facility] [address] [id number] [place] [address]- 7525 Apr, [facility] [place] [facility] [address] [id number] [place] [address]- 3766 Apr, [facility] [place] [facility] [address] [id number] [place] [address]- 4996 Apr, [facility] [place] [facility] [address] [facility] [id number] [place] [address]- 7616 Apr, [facility] [place] [facility] [address] [id number] [place] [address]- 5112 Apr, [facility] [place] [facility] [address] [id number] [place] [address]- 1481 Apr, [facility] [place] [facility] [address] [facility] [id number] [place] [address]- 8164 Apr, [facility] [place] [facility] [address] [facility] [id number] [place] [address]- 6128 Apr, [facility] [place] [facility] [address] [facility] [id number] [place] [address]- 0901 Apr, [facility] [place] [facility] [address] [facility] [id number] [place] [address]- 7544 Apr, [facility] [place] [facility] [address] [facility] [id number] [place] [address]- 4799 Apr, [facility] [place] [facility] [address] [facility] [id number] [place] [address]- 2789 Apr, [facility] [place] [facility] [address] [facility] [id number] [place] [address]- 2604 Apr, [facility] [place] [facility] [address] [facility] [id number] [place] [address]- 0770 Apr, [facility] [place] [facility] [address] [facility] [id number] [place] [address]- 8856 Jan, [facility] [place] [facility] [address] [facility] [id number] [place] [address]- 6693 Jan, [facility] [place] [facility] [address] [id number] [place] [address]- 0958 08 Jan, 2013 [facility] [place] [facility] [address] [id number] [place] [address]- 7879 Jan, [facility] [place] [facility] [address] [id number] [place] [address]- 9916 Jan, [facility] [place] [facility] [address] [id number] [place] [address]- 8327 Jan, [facility] [place] [facility] [address] [id number] [place] [address]- 6548 Jan, [facility] [place] [facility] [address] [id number] [place] [address]- 7539 Dec, [facility] [place] [facility] [address] [id number] [place] [address]- 4387 Dec, [facility] [place] [facility] [address] [id number] [place] [address]- 8857 Dec, [facility] [place] [facility] [address] [id number] [place] [address]- 2121 Nov, [facility] [place] [facility] [address] [id number] [place] [address]- 4124 Nov, [facility] [place] [facility] [address] [id number] [place] [address]- 7554 05 Nov, 2012 [facility] [place] [facility] [address] [id number], [place] [address]82 Nov, [facility] [place] [facility] [address] [id number] [place] [address]- 9455 Oct, [facility] [place] [facility] [address] [id number] [place] [address]- 1713 Oct, [facility] [place] [facility] [address] [id number], [place] [address] 0342 Oct, [facility] [place] [facility] [address] [id number], [place] [address]- 7774 Oct, [facility] [address] [id number] [place] [address]- 7757 Oct, [facility] [place] [facility] [address] [id number] [place] [address]- 6200 Sep, [facility] [place] [facility] [address] [id number] [place] [address]- 6881 Sep, [facility] [place] [facility] [address] [id number] [place] [address]- 0502 Sep, [facility] [place] [facility] [address] [id number] [place] [address]- 9329 Sep, [facility] [place] [facility] [address] [id number] [place] [address]- 0622 Sep, [facility] [address] [id number] [place] [address]- 1036 Sep, [facility] [place] [facility] [address] [id number] [place] [address]- 7077 Sep, [facility] [place] [facility] [address] [id number] [place] [address]- 3903 Aug, [facility] [place] [facility] [address] [id number] [place] [address]- 0342 Aug, [facility] [place] [facility] [address] [id number] [place] [address]- 7377 July, [facility] [place] [facility] [address] [id number] [place] [address]- 0966 Jun, [facility] [place] [facility] [address] [id number] [place] [address]- 6488 Jun, [facility] [place] [facility] [address] [id number] [place] [address]- 6864 Jun, [facility] [place] [facility] [address] [id number] [place] [address]- 8715 Apr, [facility] [place] [facility] [address] [id number] [place] [address]- 8565 Apr, [facility] [address] [id number] [place] [address]- 3265 Apr, [facility] [place] [facility] [address] [id number] [place] [address]- 5986 Mar, [facility] [place] [facility] [address] [id number] [place] [address]- 2074 Mar, [facility] [place] [facility] [address] [id number] [place] [address]- 1521 2012 [facility] [place] [facility] [address] [id number] [place] [address]- 0662 Mar, [facility] [place] [facility] [address] [id number] [place] [address]- 4424 Mar, [facility] [address] [id number] [place] [address]- 7781 14 Feb, 2012 [facility] [address] [id number] [place] [address]- 4796 14 Feb, 2012 [facility] [place] [facility] [address] [id number] [place] [address]- 7379 13 Jan, 2012 [facility] [place] [facility] [address] [id number] [place] [address]- 4304 13 Jan, 2012 [facility] [place] [facility] [address] [id number] [place] [address]- 5038 13 Jan, 2012 [facility] [place] [facility] [address] [id number] [place] [address]- 8682 13 Jan, 2012 [facility] [place] [facility] [address] [id number] [place] [address]- 0124 07 Jan, 2012 [facility] [place] [facility] [address] [id number] [place] [address]- 0201 07 Jan, 2012 [facility] [place] [facility] [address] [id number] [place] [address]- 1123 Jan, [facility] [place] [facility] [address] [id number] [place] [address]- 8754 Dec, [facility] [place] [facility] [address] [id number] [place] [address]- 7326 Dec, [facility] [place] [facility] [address] [facility] [id number] [place] [address]- 8372 Dec, [facility] [place] [facility] [address] [id number] [place] [address]- 5349 Dec, [facility] [place] [facility] [address] [id number] [place] [address]- 6131 Dec, [facility] [place] [facility] [address] [id number] [place] [address]- 1502 Dec, [facility] [place] [facility] [address] [id number] [place] [address]- 0274 Dec, [facility] [place] [facility] [address] [id number], [place] [address]- 5559 Dec, [facility] [place] [facility] [address] [id number] [place] [address]- 4016 Dec, [facility] [place] [facility] [address] [id number], [place] [address]- 9446 Dec, [facility] [place] [facility] [address] [id number], [place] [address]- 2163 Oct, [facility] [place] [facility] [address] [id number], [place] [address]- 3040 Oct, [facility] [place] [facility] [address] [id number] [place] [address]- 6534 Aug, [facility] [place] [facility] [address] [id number], [place] [address]- 6319 Aug, [facility] [place] [facility] [address] [facility] [id number], [place] [address] 2546 July, [facility] [place] [facility] [address] [id number] [place] [address] 2543 17 Jun, 2011 [facility] [address] [id number] [place] [address]- 0797 Jun, [facility] [address] [id number] [place] [address]- 2446 May, [facility] [address] [id number] [place] [address]- 5636 Apr, [facility] [address] [id number] [place] [address]- 2546 Apr, [facility] [address] [id number] [place] [address]- 4069 Mar, [facility] [address] [id number] [place] [address]- 4636 Mar, [facility] [address] [id number] [place] [address]- 2686 Feb, [facility] [address] [id number] [place] [address]- 0351 15 Feb, 2011 [facility] [address] [facility] [id number] [place] [address]- 9058 Feb, [facility] [address] [facility] [id number] [place] [address]22 13 Feb, 2011 [facility] [address] [id number] [place] [address]- 8670 Jan, [facility] [address] [id number] [place] [address]- 2541 17 Dec, 2010 [facility] [address] [id number] [place] [address]- 9541 08 Feb, 2010 [facility] [place] [facility] [address] [id number] [place] [address]- 2546 Feb, [facility] [address] [id number] [place] [address]- 1472 Feb, [facility] [address] [id number] 7679 Feb, [facility] [id number], [place] [address]- 3429 Dec, [facility] [address] [id number] 2851 Dec, [facility] [id number], [place] [address]- 2788 Oct, [facility] [id number], [place] [address]- 2666 Jun, [facility] [id number], [place] [address]- 7866 Feb, [facility] [id number], [place] [address]- 2813 Feb, [facility] [id number], [place] [address]- 5286 Feb, [facility] [address] [id number], [place] [address]- 3944 Dec, IMMUNIZATIONS No Known Immunizations SOCIAL HISTORY Never Assessed REASON FOR VISIT Lab (walk-in) PLAN OF CARE VITAL SIGNS MEDICATIONS Unknown Medications RESULTS No Results PROCEDURES Procedure Date Ordered Result Body Site PROTHROMBIN TIME Oct 30, 2016 INSTRUCTIONS MEDICATIONS ADMINISTERED No Known Medications MEDICAL [...]
--- OUTSIDE RECORDS SUMMARY | 2018-08-02 09:01 | XMS REPORT ---
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 Name Role Phone ELMO BRUNOY Unavailable PROBLEMS Type Condition ICD9-CM Code CLA64-RU Code Onset Dates Condition Status SNOMED Code Problem Generalized anxiety disorder F41.1 Active 104615303 Problem 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 Active 388284933 Problem History of DVT (deep vein thrombosis) Z86.718 Active 313479743 Problem Factor V Leiden D68.51 Active 707206366 Problem Hypertriglyceridemia E78.1 Active 077467367 Problem prison (current) use of anticoagulants Z79.01 Active 092981777 Problem Thyroid nodule E04.1 Active 021610339 Problem Excessive daytime sleepiness G47.19 Active 695614174191 Problem Peripheral edema R60.9 Active 956473130 Problem Pelvic pain R10.2 Active 43283044 Problem Gastroesophageal reflux disease, esophagitis presence not specified K21.9 Active 659966165 Problem Presence of IVC filter Z95.828 Active 788261873 ALLERGIES No Information ENCOUNTERS Encounter Location Date Diagnosis [place] [id number] [address] Aug, [facility] [place] [id number] [place] [address] 02794- 6571 Aug, [facility] [place] [id number] [place] [address] 50406- 9564 Aug, Acute pain of left shoulder M25.512 and Thyroid nodule E04.1 [facility] [place] [address] [place] [address] 31975- 4857 July, Superior glenoid labrum lesion of left shoulder, subsequent encounter S43.432D [place] [id number] [place] [address] 50388- 4353 Jun, History of DVT (deep vein thrombosis) Z86.718 [facility] [place] [id number] [place] [address] 33147- 1860 Jun, History of DVT (deep vein thrombosis) Z86.718 [place] [address] [id number] [place] [address] 31970- 7228 Jun, Impingement syndrome, shoulder, left M75.42 [place] [id number] [place] [address] 38667- 7030 May, Subacromial bursitis of left shoulder joint M75.52 [place] [id number] [place] [address] 08322- 3764 May, [place] [id number] [place] [address] 49339- 6364 May, Hypertriglyceridemia E78.1 ; prison (current) use of anticoagulants Z79.01 and Excessive daytime sleepiness G47.19 [place] [id number] [place] [address] 54628- 5962 May, History of DVT (deep vein thrombosis) Z86.718 ; Generalized anxiety disorder F41.1 ; Hypertriglyceridemia E78.1 ; long term care pharmacist (current) use of anticoagulants Z79.01 ; Subacromial bursitis of left shoulder joint M75.52 and Excessive daytime sleepiness G47.19 [place] [id number] [place] [address] 59643- 8356 May, [place] [id number] [place] [address] 67429- 3406 May, prison (current) use of anticoagulants Z79.01 [place] [id number] [place] [address] 28479- 4499 Apr, prison (current) use of anticoagulants Z79.01 [place] [id number] [place] [address] 41977- 2086 Apr, prison (current) use of anticoagulants Z79.01 [facility] [place] [id number] [place] [address] 87975 2546 Apr, prison (current) use of anticoagulants Z79.01 [facility] [place] [id number] [place] [address] 71570 2546 Apr, [facility] [place] [address] [address] 2546 Apr, prison (current) use of anticoagulants Z79.01 [facility] [place] [id number] [place] [address] 44454 2546 13 Apr, 2017 prison (current) use of anticoagulants Z79.01 [facility] [place] [id number] [place] [address] 10648 2546 Apr, prison (current) use of anticoagulants Z79.01 [facility] [place] [id number] [place] [address] 76310 2546 Apr, prison (current) use of anticoagulants Z79.01 [facility] [place] [id number] [place] [address] 27442 2546 Apr, long term care pharmacist (current) use of anticoagulants Z79.01 [facility] [place] [id number] [place] [address] 12788 2546 Apr, prison (current) use of anticoagulants Z79.01 [facility] [place] [id number] [place] [address] 79055 2546 Mar, prison (current) use of anticoagulants Z79.01 [facility] [place] [id number] [place] [address] 70277 2546 Mar, [facility] [place] [id number] [place] [address] 08918 2546 Mar, long term care pharmacist (current) use of anticoagulants Z79.01 [facility] [id number] [place] [address] [id number] Jan, Dental examination Z01.20 [facility] [id number] [place] [address] [id number] Jan, [facility] [place] [id number] [place] [address] 90318- 9017 Jan, prison (current) use of anticoagulants Z79.01 [facility] [place] [id number] [place] [address] 51642- 5958 Jan, History of DVT (deep vein thrombosis) Z86.718 [facility] [place] [id number] [place] [address] 97070- 8095 Jan, Generalized anxiety disorder F41.1 and Peripheral edema R60.9 [facility] [place] [id number] [place] [address] 97042- 4869 Nov, History of DVT (deep vein thrombosis) Z86.718 [facility] [place] [id number] [place] [address] 82005- 7704 Nov, long term care pharmacist (current) use of anticoagulants Z79.01 [facility] [id number] [place] [address] 56507 -8133 Nov, Acute non-recurrent maxillary sinusitis J01.00 [facility] [place] [id number] [place] [address] 81179- 5309 Oct, long term care pharmacist (current) use of anticoagulants Z79.01 [facility] [place] [address] [place] [address] 30695- 0200 Oct, Personal history of venous thrombosis and embolism Z86.718 [facility] [place] [id number] [place] [address] 74335- 2243 Sep, [facility] [place] [id number] [place] [address] 96788- 4286 Sep, Personal history of venous thrombosis and embolism Z86.718 [facility] [place] [id number] [place] [address] 48171- 2979 Sep, prison (current) use of anticoagulants Z79.01 [place] [address] [place] [id number] [place] [address] 54682- 1249 Sep, prison (current) use of anticoagulants Z79.01 [place] [address] [place] [id number] [place] [address] 05965- 9913 Sep, Generalized anxiety disorder F41.1 and History of DVT (deep vein thrombosis) Z86.718 [place] [address] [place] [id number] [place] [address] 70604- 1099 Aug, History of DVT (deep vein thrombosis) Z86.718 ; Generalized anxiety disorder F41.1 ; long term care pharmacist (current) use of anticoagulants Z79.01 ; Pelvic pain R10.2 ; Hypertriglyceridemia E78.1 ; Excessive daytime sleepiness G47.19 ; Colon cancer screening Z12.11 ; Screening for breast cancer Z12.39 ; Peripheral edema R60.9 and Gastroesophageal reflux disease, esophagitis presence not specified K21.9 [place] [address] [place] [id number] [place] [address] 26507- 0212 Aug, [place] [address] [place] [id number] [place] [address] 86321- 0351 July, [place] [address] [place] [address] [id number] [place] [address] 18496- 8139 July, History of DVT (deep vein thrombosis) Z86.718 [place] [address] [place] [address] [id number] [place] [address] 15967- 2114 Jun, Generalized anxiety disorder F41.1 [place] [address] [place] [id number] [place] [address] 64244- 9344 Jun, History of DVT (deep vein thrombosis) Z86.718 [place] [address] [place] [id number] [place] [address] 22701- 3214 Jun, History of DVT (deep vein thrombosis) Z86.718 [place] [address] [place] [address]- 2173 Jun, History of DVT (deep vein thrombosis) Z86.718 [facility] [place] [id number] [place] [address] 59470- 5208 Jun, History of DVT (deep vein thrombosis) Z86.718 [facility] [place] [id number] [place] [address] 05014- 1474 May, History of DVT (deep vein thrombosis) Z86.718 [facility] [place] [id number] [place] [address] 77559- 7122 May, long term care pharmacist (current) use of anticoagulants Z79.01 [place] [address] 95340- 6729 May, long term care pharmacist (current) use of anticoagulants Z79.01 [place] [address] [place] [id number] [place] [address] 60826- 6005 May, History of DVT (deep vein thrombosis) Z86.718 [facility] [id number] [place] [address] 19454 -2100 Apr, Bacterial conjunctivitis of left eye H10.9 and H/O motion sickness Z87.898 [facility] [place] [id number] [place] [address] 81772- 4485 Apr, History of DVT (deep vein thrombosis) Z86.718 [facility] [place] [id number] [place] [address] 33739- 9089 Apr, History of DVT (deep vein thrombosis) Z86.718 [place] [address] [place] [id number] [place] [address] 51139- 5887 Apr, History of DVT (deep vein thrombosis) Z86.718 [facility] [place] [id number] [place] [address] 11535- 6080 14 Apr, 2016 long term care pharmacist (current) use of anticoagulants Z79.01 [facility] [place] [address] [address]- 2960 Mar, [facility] [place] [address] [id number] [place] [address] 48033- 3916 Mar, prison (current) use of anticoagulants Z79.01 [facility] [place] [address] [place] [address] 59322 2546 Mar, Hypertriglyceridemia E78.1 and long term care pharmacist (current) use of anticoagulants Z79.01 [place] [address] [id number] [place] [address] 17528 2546 Feb, prison (current) use of anticoagulants Z79.01 [place] [address] [place] [id number] [place] [address] 93287 2546 Feb, prison (current) use of anticoagulants Z79.01 [place] [id number] [place] [address] 46610- 7786 Feb, long term care pharmacist (current) use of anticoagulants Z79.01 [place] [id number] [place] [address] 34708 2546 Dec, [place] [id number] [place] [address] 88625- 5976 Nov, [place] [address] [place] [address] 73385- 5236 Nov, History of DVT (deep vein thrombosis) Z86.718 ; Tremulousness R25.1 ; Generalized anxiety disorder F41.1 ; Peripheral edema R60.9 and Hypertriglyceridemia E78.1 [place] [address], [place] [address] 2546 Oct, History of DVT (deep vein thrombosis) Z86.718 [place] [address] [place] [address] 47445 2546 Oct, [place] [address] [place] [address] 75402- 2546 Sep, History of DVT (deep vein thrombosis) Z86.718 [facility] [place] [address] [place] [address] 39282- 5008 Sep, long term care pharmacist (current) use of anticoagulants Z79.01 [facility] [place] [id number] [place] [address] 67448- 0142 July, [facility] [place] [id number] [place] [address] 42102- 3173 July, long term care pharmacist (current) use of anticoagulants Z79.01 [facility] [place] [id number] [place] [address] 20325- 3549 July, long term care pharmacist (current) use of anticoagulants Z79.01 [place] [address] [place] [id number] [place] [address] 25561- 4439 Jun, prison (current) use of anticoagulants Z79.01 [facility] [id number] [place] [address] 27847 -6833 Jun, Coccyx pain M53.3 ; Encounter for therapeutic drug level monitoring Z51.81 and long term care pharmacist current use 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.01 [facility] [place] [id number] [place] [address] 45844- 8600 May, Abnormal mammogram R92.8 [facility] [id number] [place] [address] 14064 -0618 May, [facility] [id number] [place] [address] 38073 -1915 May, Acute vaginitis N76.0 and Encounter for other screening for malignant neoplasm of breast Z12.39 [place] [id number] [place] [address] 85815- 3830 Apr, [facility] [place] [id number] [place] [address] 15688- 4311 Apr, [facility] [place] [id number] [place] [address] 60427- 2918 Apr, Peripheral edema R60.9 [facility] [place] [id number] [place] [address] 99713 2546 Apr, prison (current) use of anticoagulants Z79.01 [facility] [place] [id number] [place] [address] 63648 2546 Apr, Peripheral edema R60.9 and long term care pharmacist (current) use of anticoagulants Z79.01 [place] [id number] [place] [address] 78392 2546 Apr, prison (current) use of anticoagulants Z79.01 [place] [id number] [place] [address] 41798 2546 Apr, [place] [id number] [place] [address] 37819 2546 Apr, prison (current) use of anticoagulants Z79.01 [place] [id number] [place] [address] 70480 2546 Apr, Peripheral edema R60.9 [place] [id number] [place] [address] 52784 2546 Mar, long term care pharmacist (current) use of anticoagulants Z79.01 [place] [id number] [place] [address] 74215 2546 Mar, long term care pharmacist (current) use of anticoagulants Z79.01 and Hypertriglyceridemia E78.1 [place] [id number] [place] [address] 94153 2546 Mar, prison (current) use of anticoagulants Z79.01 [place] [id number] [place] [address] 64875 2546 Mar, long term care pharmacist (current) use of anticoagulants Z79.01 [place] [id number] [place] [address] 10510 2546 Mar, [place] [address] [place] [address]- 4530 Mar, long term care pharmacist (current) use of anticoagulants Z79.01 ; Hypertriglyceridemia E78.1 ; Personal history of venous thrombosis and embolism Z86.718 and Lump R22.9 [place] [address] [place] [address] 87708- 1693 Mar, Personal history of venous thrombosis and embolism Z86.718 [place] [id number] [place] [address] 41747- 3091 Mar, Personal history of venous thrombosis and embolism Z86.718 [place] [id number] [place] [address] 34202- 0187 Mar, [place] [id number] [place] [address] 73633- 8810 Dec, Personal history of venous thrombosis and embolism Z86.718 [place] [id number] [place] [address] 11265- 0117 Dec, Personal history of venous thrombosis and embolism V12.51 [place] [id number] [place] [address] 32381- 0967 Nov, Personal history of venous thrombosis and embolism V12.51 [place] [id number] [place] [address] 28928- 5685 Nov, Personal history of venous thrombosis and embolism V12.51 [place] [id number] [place] [address] 96468- 1397 Nov, Personal history of venous thrombosis and embolism V12.51 [place] [id number] [place] [address] 70491- 2654 Nov, Personal history of venous thrombosis and embolism V12.51 [place] [id number] [place] [address] 65615- 5208 Nov, [place] [id number] [place] [address] 87813- 1976 Oct, Dysuria 788.1 [facility] [place] [address] [address]- 4919 Oct, Personal history of venous thrombosis and embolism V12.51 [facility] [place] [address] [place] [address]- 6680 Oct, [facility] [place] [address] [place] [address]- 3597 Oct, Personal history of venous thrombosis and embolism V12.51 [facility] [place] [address] [place] [address] 70048- 2242 Sep, Personal history of venous thrombosis and embolism V12.51 [facility] [place] [id number] [place] [address] 39384- 1099 Sep, Personal history of venous thrombosis and embolism V12.51 [facility] [place] [id number] [place] [address] 22824- 1735 Aug, Personal history of venous thrombosis and embolism V12.51 [facility] [place] [address] [address]- 6704 Aug, Personal history of venous thrombosis and embolism V12.51 [facility] [place] [address] [place] [address]- 3803 Aug, Personal history of venous thrombosis and embolism V12.51 [facility] [place] [address] [address]- 7648 July, Generalized anxiety disorder 300.02 ; Abdominal pain, left lower quadrant 789.04 and Personal history of venous thrombosis and embolism V12.51 [facility] [place] [address] [address]- 7972 Jun, [facility] [place] [address] [place] [address]- 5806 Jun, [facility] [place] [id number], [place] [address] May, [facility] [place] [facility] [address] [id number] [place] [address] May, [facility] [place] [facility] [address] [id number] [place] [address] May, [facility] [place] [facility] [address] [id number] [place] [address] May, [facility] [place] [facility] [address] [id number] [place] [address] May, [facility] [place] [facility] [address] [id number] [place] [address] May, [facility] [place] [facility] [address] [id number] [place] [address] May, [facility] [place] [facility] [address] [facility] [id number] [place] [address] May, [facility] [place] [facility] [address] [id number] [place] [address] Apr, [facility] [place] [facility] [address] [id number] [place] [address] Apr, [facility] [place] [facility] [address] [facility] [id number] [place] [address] Apr, [facility] [place] [facility] [address] [facility] [id number] [place] [address] Apr, [facility] [place] [facility] [address] [id number], [place] [address] Apr, [facility] [place] [facility] [address] [id number] [place] [address] Mar, [facility] [place] [facility] [address] [id number] [place] [address] Mar, [facility] [place] [facility] [address] [facility] [id number], [place] [address] Mar, [facility] [place] [facility] [address] [id number] [place] [address] Mar, [facility] [place] [facility] [address] [id number] [place] [address] Mar, [facility] [place] [facility] [address] [id number] [place] [address] Mar, [facility] [place] [facility] [address] [id number] [place] [address] Feb, [facility] [place] [facility] [address] [id number] [place] [address] Feb, [facility] [place] [facility] [address] [id number] [place] [address] Feb, [facility] [place] [facility] [address] [id number] [place] [address] Feb, [facility] [place] [facility] [address] [facility] [id number] [place] [address] Feb, [facility] [place] [facility] [address] [id number] [place] [address] Feb, [facility] [place] [facility] [address] [id number] [place] [address] Feb, [facility] [place] [facility] [address] [id number] [place] [address] Feb, [facility] [place] [facility] [address] [id number] [place] [address] Feb, [facility] [place] [facility] [address] [id number] [place] [address] 3[address] Feb, [facility] [place] [facility] [address] [id number] [place] [address]- 8255 Jan, [facility] [place] [facility] [address] [id number] [place] [address]- 2833 Jan, [facility] [place] [facility] [address] [facility] [id number] [place] [address]- 4586 Jan, [facility] [place] [facility] [address] [id number] [place] [address]- 3748 Jan, [facility] [place] [facility] [address] [id number] [place] [address]- 3134 Jan, [facility] [place] [facility] [address] [id number] [place] [address]- 4331 Jan, [facility] [place] [facility] [address] [id number] [place] [address]- 4141 Jan, [facility] [place] [facility] [address] [id number] [place] [address]- 7455 Jan, [facility] [place] [facility] [address] [id number] [place] [address]- 2233 Jan, [facility] [place] [facility] [address] [id number] [place] [address]- 4459 Jan, [facility] [place] [facility] [address] [id number] [place] [address]- 0393 Dec, [facility] [place] [facility] [address] [id number] [place] [address]- 0019 Dec, [facility] [place] [facility] [address] [id number] [place] [address]- 9460 Dec, [facility] [place] [facility] [address] [id number] [place] [address]- 1939 Dec, [facility] [place] [facility] [address] [id number] [place] [address]- 3030 Dec, [facility] [place] [facility] [address] [id number] [place] [address]- 0120 Dec, [facility] [place] [facility] [address] [id number] [place] [address]- 7182 Dec, [facility] [place] [facility] [address] [id number] [place] [address]- 2481 Dec, [facility] [place] [facility] [address] [id number] [place] [address]- 5794 Dec, [facility] [place] [facility] [address] [id number] [place] [address]- 8998 Dec, [facility] [place] [facility] [address] [id number] [place] [address]- 9031 Dec, [facility] [place] [facility] [address] [id number] [place] [address]- 6266 Dec, [facility] [place] [facility] [address] [id number] [place] [address]- 3890 Dec, [facility] [place] [facility] [address] [id number] [place] [address]- 8882 Dec, [facility] [place] [facility] [address] [id number] [place] [address]- 9073 Dec, [facility] [place] [facility] [address] [id number] [place] [address]- 5894 30 Nov, 2013 [facility] [place] [facility] [address] [id number] [place] [address]- 5603 30 Nov, 2013 [facility] [place] [facility] [address] [id number] [place] [address]- 3760 26 Nov, 2013 [facility] [place] [facility] [address] [id number] [place] [address]- 6025 26 Nov, 2013 [facility] [place] [facility] [address] [id number], [place] [address] 3[address] 24 Sep, 2013 [facility] [place] [facility] [address] [id number], [place] [address]- 2651 24 Sep, 2013 [facility] [place] [facility] [address] [id number] [place] [address]- 0188 23 Sep, 2013 [facility] [place] [facility] [address] [id number] [place] [address]- 7244 23 Nov, 2013 [facility] [place] [facility] [address] [id number] [place] [address]- 1994 18 Nov, 2013 [facility] [place] [facility] [address] [id number] [place] [address]- 1747 18 Nov, 2013 [facility] [place] [facility] [address] [id number] [place] [address]- 2706 17 Nov, 2013 [facility] [place] [facility] [address] [id number] [place] [address]- 5036 17 Nov, 2013 [facility] [place] [facility] [address] [id number] [place] [address]- 7056 11 Nov, 2013 [facility] [place] [facility] [address] [id number] [place] [address] 2546 11 Nov, 2013 [facility] [place] [facility] [address] [id number] [place] [address]- 1653 10 Nov, 2013 [facility] [place] [facility] [address] [id number] [place] [address]- 3756 10 Nov, 2013 [facility] [place] [facility] [address] [id number] [place] [address]- 7043 08 Nov, 2013 [facility] [place] [facility] [address] [id number] [place] [address]- 4430 08 Nov, 2013 [facility] [place] [facility] [address] [id number] [place] [address]- 6895 Sep, 2013 [facility] [place] [facility] [address] [id number] [place] [address]- 4221 Sep, [facility] [place] [facility] [address] [id number] [place] [address]- 1456 Sep, 2013 [facility] [place] [facility] [address] [id number] [place] [address]- 5097 Sep, 2013 [facility] [place] [facility] [address] [id number] [place] [address]- 5342 Sep, [facility] [place] [facility] [address] [id number] [place] [address]- 6207 Sep, 2013 [facility] [place] [facility] [address] [id number] [place] [address]- 2688 Aug, [facility] [place] [facility] [address] [id number] [place] [address]- 9328 Aug, [facility] [place] [facility] [address] [id number] [place] [address]- 3016 Aug, [facility] [place] [facility] [address] [id number] [place] [address]- 2521 Aug, [facility] [place] [facility] [address] [id number] [place] [address]- 4048 Aug, [facility] [place] [facility] [address] [id number] [place] [address]- 3346 Aug, [facility] [place] [facility] [address] [id number] [place] [address]- 7711 Aug, [facility] [place] [facility] [address] [id number] [place] [address]- 7345 Aug, [facility] [place] [facility] [address] [id number] [place] [address]- 2610 Aug, [facility] [place] [facility] [address] [id number] [place] [address]- 2824 Aug, [facility] [place] [facility] [address] [id number] [place] [address]- 5103 Aug, [facility] [place] [facility] [address] [id number] [place] [address]- 0809 July, [facility] [place] [facility] [address] [id number] [place] [address]- 3409 July, [facility] [place] [facility] [address] [id number] [place] [address]- 3871 Jun, [facility] [place] [facility] [address] [id number] [place] [address]- 3236 Jun, [facility] [place] [facility] [address] [id number] [place] [address]- 3408 Jun, [facility] [place] [facility] [address] [id number] [place] [address]- 5979 18 Jun, 2013 [facility] [place] [facility] [address] [id number] [place] [address]- 9332 18 Jun, 2013 [facility] [place] [facility] [address] [id number] [place] [address]- 8359 18 Jun, 2013 [facility] [place] [facility] [address] [id number] [place] [address]- 3025 15 Jun, 2013 [facility] [place] [facility] [address] [id number] [place] [address]- 8633 15 Jun, 2013 [facility] [place] [facility] [address] [id number] [place] [address]- 4114 Jun, [facility] [place] [facility] [address] [id number] [place] [address]- 9758 Jun, [facility] [place] [facility] [address] [id number] [place] [address]- 2745 Jun, [facility] [place] [facility] [address] [id number] [place] [address]- 6061 Jun, [facility] [place] [facility] [address] [id number] [place] [address]- 3211 May, [facility] [place] [facility] [address] [id number] [place] [address]- 2671 May, [facility] [place] [facility] [address] [id number] [place] [address]- 1735 May, [facility] [place] [facility] [address] [id number] [place] [address]- 0344 May, [facility] [place] [facility] [address] [id number] [place] [address]- 5557 May, [facility] [place] [facility] [address] [id number] [place] [address]- 0004 19 May, 2013 [facility] [place] [facility] [address] [id number] [place] [address]- 2419 May, [facility] [place] [facility] [address] [id number] [place] [address]- 3841 May, [facility] [place] [facility] [address] [id number] [place] [address]- 9257 May, [facility] [place] [facility] [address] [id number] [place] [address]- 2587 May, [facility] [place] [facility] [address] [id number] [place] [address]- 3789 May, [facility] [place] [facility] [address] [id number] [place] [address]- 6339 May, [facility] [place] [facility] [address] [id number] [place] [address]- 4871 Apr, [facility] [place] [facility] [address] [facility] [id number] [place] [address]- 5076 Apr, [facility] [place] [facility] [address] [id number] [place] [address]- 8390 Apr, [facility] [place] [facility] [address] [id number] [place] [address]- 0155 Apr, [facility] [place] [facility] [address] [facility] [id number] [place] [address]- 0743 Apr, [facility] [place] [facility] [address] [facility] [id number] [place] [address]- 6940 Apr, [facility] [place] [facility] [address] [facility] [id number] [place] [address]- 7184 Apr, [facility] [place] [facility] [address] [id number] [place] [address]- 4162 Apr, [facility] [place] [facility] [address] [id number] [place] [address]- 6026 Apr, [facility] [place] [facility] [address] [facility] [id number] [place] [address]- 2460 Apr, [facility] [place] [facility] [address] [facility] [id number] [place] [address]- 1226 Apr, [facility] [place] [facility] [address] [id number] [place] [address]- 9916 Apr, [facility] [place] [facility] [address] [id number] [place] [address]- 4662 Apr, 2013 [facility] [place] [facility] [address] [id number] [place] [address]- 6726 Apr, [facility] [place] [facility] [address] [id number] [place] [address]- 6104 Apr, [facility] [place] [facility] [address] [id number] [place] [address]- 1454 Apr, [facility] [place] [facility] [address] [id number] [place] [address]- 2667 Apr, [facility] [place] [facility] [address] [facility] [id number] [place] [address]- 7319 Jan, [facility] [place] [facility] [address] [id number] [place] [address]- 4240 Jan, [facility] [place] [facility] [address] [facility] [id number] [place] [address]- 9354 Jan, [facility] [place] [facility] [address] [facility] [id number] [place] [address]- 4836 Jan, [facility] [place] [facility] [address] [id number] [place] [address]- 0405 Jan, [facility] [place] [facility] [address] [id number] [place] [address]- 2389 Jan, [facility] [place] [facility] [address] [id number] [place] [address]- 8531 Jan, [facility] [place] [facility] [address] [facility] [id number] [place] [address]- 6452 Dec, [facility] [place] [facility] [address] [id number] [place] [address]- 0332 Dec, [facility] [place] [facility] [address] [id number] [place] [address]- 1444 Dec, [facility] [place] [facility] [address] [id number] [place] [address]- 3852 Nov, [facility] [place] [facility] [address] [id number] [place] [address]- 4853 Nov, [facility] [place] [facility] [address] [id number] [place] [address]- 0595 Nov, [facility] [place] [facility] [address] [id number] [place] [address]- 1566 Nov, [facility] [place] [facility] [address] [id number] [place] [address]- 3337 Oct, [facility] [place] [facility] [address] [id number] [place] [address]- 8345 Oct, [facility] [place] [facility] [address] [id number] [place] [address]- 6622 Oct, [facility] [place] [facility] [address] [id number] [place] [address]- 7299 Oct, [facility] [place] [facility] [address] [id number] [place] [address]- 8494 Oct[facility] [place] [facility] [address] [id number] [place] [address]- 6254 Sep, [facility] [place] [facility] [address] [id number] [place] [address]- 9854 Sep, [facility] [place] [facility] [address] [id number] [place] [address]- 2476 Sep, [facility] [place] [facility] [address] [id number] [place] [address]- 1071 Sep, [facility] [place] [facility] [address] [id number] [place] [address]- 3604 Sep, [facility] [place] [facility] [address] [id number] [place] [address]- 2546 Sep, [facility] [address] [id number] [place] [address]- 3858 Sep, [facility] [address] [id number] [place] [address]- 8814 Aug, [facility] [address] [id number] [place] [address]- 3432 Aug, [facility] [place] [facility] [address] [id number] [place] [address]- 2112 July, [facility] [address] [id number] [place] [address]- 4404 Jun, [facility] [place] [facility] [address] [id number] [place] [address]- 9341 Jun, [facility] [address] [id number] [place] [address]- 2831 Jun, [facility] [place] [facility] [address] [id number] [place] [address]- 2623 Apr, [facility] [address] [id number] [place] [address]- 0153 Apr, [facility] [place] [facility] [address] [id number] [place] [address]- 7460 Apr, [facility] [address] [id number] [place] [address]- 5711 Mar, [facility] [place] [facility] [address] [id number] [place] [address]- 6558 Mar, [facility] [place] [facility] [address] [id number] [place] [address]- 3082 Mar, [facility] [place] [facility] [address] [id number] [place] [address]- 0875 Mar, [facility] [place] [facility] [address] [id number] [place] [address]- 1796 Mar, [facility] [place] [facility] [address] [id number] [place] [address]- 5165 14 Feb, 2012 [facility] [place] [facility] [address] [id number] [place] [address]- 8580 14 Feb, 2012 [facility] [place] [facility] [address] [id number] [place] [address]- 2716 13 Jan, 2012 [facility] [place] [facility] [address] [id number] [place] [address]- 3055 13 Jan, 2012 [facility] [place] [facility] [address] [id number] [place] [address]- 5852 13 Jan, 2012 [facility] [place] [facility] [address] [id number] [place] [address]- 6454 13 Jan, 2012 [facility] [place] [facility] [address] [id number] [place] [address]- 9714 07 Jan, 2012 [facility] [place] [facility] [address] [id number] [place] [address]- 6166 Jan, [facility] [place] [facility] [address] [id number] [place] [address]- 6456 06 Jan, 2012 [facility] [place] [facility] [address] [id number] [place] [address]- 5021 31 Dec, 2011 [facility] [place] [facility] [address] [facility] [id number] [place] [address]- 6329 31 Dec, 2011 [facility] [place] [facility] [address] [id number] [place] [address]- 9857 30 Dec, 2011 [facility] [place] [facility] [address] [id number] [place] [address]- 8485 30 Dec, 2011 [facility] [place] [facility] [address] [id number] [place] [address]- 7276 30 Dec, 2011 [facility] [place] [facility] [address] [facility] [id number] [place] [address]- 5616 30 Dec, 2011 [facility] [place] [facility] [address] [id number] [place] [address]- 4333 Dec, [facility] [place] [facility] [address] [id number] [place] [address]- 3357 Dec, [facility] [place] [facility] [address] [id number] [place] [address]- 5728 Dec, [facility] [place] [facility] [address] [id number] [place] [address]- 7404 Dec, [facility] [place] [facility] [address] [id number] [place] [address]- 9391 Oct, [facility] [place] [facility] [address] [id number] [place] [address]- 8734 Oct, [facility] [place] [facility] [address] [id number] [place] [address]- 8960 Aug, [facility] [place] [facility] [address] [id number] [place] [address]- 4544 Aug, [facility] [place] [facility] [address] [id number] [place] [address]- 6712 July, [facility] [place] [facility] [address] [id number] [place] [address]- 1473 Jun, [facility] [place] [facility] [address] [id number] [place] [address]- 5980 Jun, [facility] [place] [facility] [address] [id number] [place] [address]- 2269 May, [facility] [place] [facility] [address] [id number], [place] [address]- 4359 Apr, [facility] [place] [facility] [address] [id number] [place] [address]- 4255 Apr, [facility] [place] [facility] [address] [id number], [place] [address] Mar, [facility] [place] [facility] [address] [id number] [place] [address]- 6036 Mar, [facility] [place] [facility] [address] [id number] [place] [address]- 4597 19 Feb, 2011 [facility] [address] [id number] [place] [address]- 2036 15 Feb, 2011 [facility] [place] [facility] [address] [id number] [place] [address] 2546 13 Feb, 2011 [facility] [address] [id number] [place] [address]- 7176 13 Feb, 2011 [facility] [place] [facility] [address] [id number] [place] [address] 2545 Jan, [facility] [address] [id number] [place] [address]- 7273 17 Dec, 2010 [facility] [address] [id number] [place] [address]- 4020 08 Feb, 2010 [facility] [address] [id number] [place] [address]- 9549 02 Feb, 2010 [facility] [address] [id number] [place] [address]- 9144 Feb, [facility] [place] [facility] [address] [id number] [place] [address]- 2489 Feb, [facility] [address] [facility] [id number] [place] [address]- 3511 15 Dec, 2009 [facility] [place] [facility] [address] [id number] [place] [address]- 6647 15 Dec, 2009 [facility] [place] [facility] [address] [id number] [place] [address]- 3523 Oct, [facility] [place] [facility] [address] [id number] [place] [address] 15 Jun, 2009 [facility] [place] [facility] [address] [id number] [place] [address] Feb, [facility] [place] [facility] [address] [id number] [place] [address] Feb, [facility] [place] [address] [facility] [id number] [place] [address] Feb, [facility] [place] [address] [facility] [id number] [address] Dec, IMMUNIZATIONS No Known Immunizations SOCIAL HISTORY Never Assessed REASON FOR VISIT Lab (walk-in) PLAN OF CARE VITAL SIGNS MEDICATIONS Unknown Medications RESULTS Name Result Date Reference Range INR (IN HOUSE) 2017-05-22 INR 2.6 1.10 - 3.30 PREVIOUS INR 2.5 CURRENT COUMADIN DOSE 5mg 7days a week NEW COUMADIN DOSE Lot # [id number] Exp date 01/2018 PROCEDURES Procedure Date Ordered Result Body Site PROTHROMBIN TIME May 22, 2017 INSTRUCTIONS MEDICATIONS ADMINISTERED No Known Medications MEDICAL (GENERAL) HISTORY Type Description Date Medical History obesity Medical History Hematologic disorder factor clotting problem Medical History DVT's Surgical History Lap Band 10/2012 Surgical History section 1985, 1987 Surgical History cholecystectomy Surgical History Hickory Filter 06/2009 Surgical History Left leg exploratory surgery r/t clot 1987 Surgical History left shoulder surgery 09/14/17 Hospitalization History Ruptured Ovarian Cyst with abd bleeding 11/2009
--- OUTSIDE RECORDS SUMMARY | 2018-08-02 09:02 | XMS REPORT ---
Author Author KIANA ASHLEY [facility] Address [address] [place] [address] Care Team Providers Care Purchasing Associate Name Role Phone KIANAGILSON VILLEGASHANY Unavailable PROBLEMS Type Condition ICD9-CM Code RVP46-MB Code Onset Dates Condition Status SNOMED Code Problem Hypertriglyceridemia E78.1 Active 916363568 Problem Generalized anxiety disorder F41.1 Active 411513961 Problem [facility] (current) use of anticoagulants Z79.01 Active 646843074 Problem Factor V Leiden D68.51 Active 622750248 Problem History of DVT (deep vein thrombosis) Z86.718 Active 448193301 Problem Excessive daytime sleepiness G47.19 Active 505682301080 Problem Gastroesophageal reflux disease, esophagitis presence not specified K21.9 Active 862724228 Problem Pelvic pain R10.2 Active 62401993 Problem 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 Active 455341282 Problem Presence of IVC filter Z95.828 Active 105594903 Problem Peripheral edema R60.9 Active 722005226 ALLERGIES No Information ENCOUNTERS Encounter Location Date Diagnosis [place] [address] [address]65 July, [place] [address] [address]- [address] Jun, History of DVT (deep vein thrombosis) Z86.718 [place] [address] 9[address]70- 3509 Jun, History of DVT (deep vein thrombosis) Z86.718 [place] [address] [place] [id number] [place] [address] 24592- 6226 Jun, Impingement syndrome, shoulder, left M75.42 [place] [address] 96109- 3359 May, Subacromial bursitis of left shoulder joint M75.52 [place] [address] [place] [id number] [place] [address] 26319- 2650 May, [place] [address] [place] [id number] [place] [address] 86414- 4413 May, Hypertriglyceridemia E78.1 ; demand equipment 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 (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 Z79.01 and Excessive daytime sleepiness G47.19 [place] [address] [place] [id number] [place] [address] 08440- 3676 May, History of DVT (deep vein thrombosis) Z86.718 ; Generalized anxiety disorder F41.1 ; Hypertriglyceridemia E78.1 ; demand equipment repairer (current) use of anticoagulants Z79.01 ; Subacromial bursitis of left shoulder joint M75.52 and Excessive daytime sleepiness G47.19 [place] [address] [place] [id number] [place] [address] 66191- 1267 May, [place] [address] [place] [id number] [place] [address] 31407- 2543 May, demand equipment repairer (current) use of anticoagulants Z79.01 [place] [address] [place] [id number] [place] [address] 11658- 4892 Apr, [facility] (current) use of anticoagulants Z79.01 [place] [address] [place] [id number] [place] [address] 76549- 9126 Apr, demand equipment repairer (current) use of anticoagulants Z79.01 [place] [address] [place] [id number] [place] [address] 18430- 4882 Apr, demand equipment repairer (current) use of anticoagulants Z79.01 [place] [address] [place] [id number] [place] [address] 28346- 0466 Apr, [place] [address] [place] [id number] [place] [address] 27747- 2095 Apr, demand equipment repairer (current) use of anticoagulants Z79.01 [place] [address] [address] 0756 13 Apr, 2017 demand equipment repairer (current) use of anticoagulants Z79.01 [facility] [address] [place] [address] 74059 2546 Apr, demand equipment repairer (current) use of anticoagulants Z79.01 [facility] [address] [place] [address] 22591 2546 Apr, [facility] (current) use of anticoagulants Z79.01 [facility] [address] [place] [address] 80015 2546 Apr, demand equipment repairer (current) use of anticoagulants Z79.01 [facility] [address] [place] [address] 67001 2546 Apr, [facility] (current) use of anticoagulants Z79.01 [facility] [address] [place] [address] 11020 2546 Mar, [facility] (current) use of anticoagulants Z79.01 [facility] [address] [place] [address] 49912 2546 Mar, [facility] [address] [place] [id number] [place] [address] 60335 2546 Mar, [facility] (current) use of anticoagulants Z79.01 [facility] [address] [place] [address] [id number] Jan, Dental examination Z01.20 [facility] [address] [place] [address] [id number] Jan, [facility] [address] [place] [id number] [place] [address] 97247 2546 Jan, demand equipment repairer (current) use of anticoagulants Z79.01 [facility] [address], [place] [address] 2546 17 Jan, 2017 History of DVT (deep vein thrombosis) Z86.718 [place] [address] [place] [address] 26095- 1329 Jan, Generalized anxiety disorder F41.1 and Peripheral edema R60.9 [facility] [address] [place] [id number] [place] [address] 17433- 8451 Nov, History of DVT (deep vein thrombosis) Z86.718 [facility] [address] [place] [id number] [place] [address] 25227- 2001 Nov, [facility] (current) use of anticoagulants Z79.01 [facility] [address] [place] [address] 94119 -5789 Nov, Acute non-recurrent maxillary sinusitis J01.00 [facility] [address] [place] [id number] [place] [address] 48497- 5634 Oct, [facility] (current) use of anticoagulants Z79.01 [place] [address] [place] [id number] [place] [address] 14005- 9860 Oct, Personal history of venous thrombosis and embolism Z86.718 [place] [address] [place] [id number] [place] [address] 14559- 1606 Sep, [facility] [address] [place] [id number] [place] [address] 15923- 2864 Sep, Personal history of venous thrombosis and embolism Z86.718 [facility] [address] [place] [id number] [place] [address] 76651- 6190 Sep, [facility] (current) use of anticoagulants Z79.01 [place] [address] [place] [address] 32845- 9946 Sep, [facility] (current) use of anticoagulants Z79.01 [facility] [address] [place] [id number] [place] [address] 86729- 3086 Sep, Generalized anxiety disorder F41.1 and History of DVT (deep vein thrombosis) Z86.718 [facility] [address] [place] [id number] [place] [address] 10672- 6523 Aug, History of DVT (deep vein thrombosis) Z86.718 ; Generalized anxiety disorder F41.1 ; demand equipment repairer (current) use of anticoagulants Z79.01 ; Pelvic pain R10.2 ; Hypertriglyceridemia E78.1 ; Excessive daytime sleepiness G47.19 ; Colon cancer screening Z12.11 ; Screening for breast cancer Z12.39 ; Peripheral edema R60.9 and Gastroesophageal reflux disease, esophagitis presence not specified K21.9 [place] [address] 20635- 3064 Aug, [place] [address] 10842- 8672 July, [place] [address] 66684- 9504 July, History of DVT (deep vein thrombosis) Z86.718 [place] [address] 60728- 9070 Jun, Generalized anxiety disorder F41.1 [place] [address] [place] [id number] [place] [address] 14124- 4401 Jun, History of DVT (deep vein thrombosis) Z86.718 [place] [address] [place] [id number] [place] [address] 13526- 2652 Jun, History of DVT (deep vein thrombosis) Z86.718 [place] [address] [place] [id number] [place] [address] 51171- 5312 Jun, History of DVT (deep vein thrombosis) Z86.718 [place] [address] [place] [id number] [place] [address] 24385- 0985 Jun, History of DVT (deep vein thrombosis) Z86.718 [place] [address] [place] [id number] [place] [address] 74899- 3324 May, History of DVT (deep vein thrombosis) Z86.718 [place] [address] 45638- 0532 May, demand equipment repairer (current) use of anticoagulants Z79.01 [facility] [address] [place] [id number] [place] [address] 77278- 5377 May, demand equipment repairer (current) use of anticoagulants Z79.01 [facility] [address] [place] [id number] [place] [address] 84711- 5764 May, History of DVT (deep vein thrombosis) Z86.718 [facility] [address] [place] [id number] [place] [address] 15313 -5186 27 Apr, 2016 Bacterial conjunctivitis of left eye H10.9 and H/O motion sickness Z87.898 [facility] [address] [place] [id number] [place] [address] 19807- 1840 24 Apr, 2016 History of DVT (deep vein thrombosis) Z86.718 [facility] [address] [place] [id number] [place] [address] 98824- 8090 23 Apr, 2016 History of DVT (deep vein thrombosis) Z86.718 [facility] [address] [place] [id number] [place] [address] 62161- 3138 15 Apr, 2016 History of DVT (deep vein thrombosis) Z86.718 [facility] [address] [place] [id number] [place] [address] 04728- 6147 14 Apr, 2016 demand equipment repairer (current) use of anticoagulants Z79.01 [facility] [address] [place] [id number] [place] [address] 01967- 6313 Mar, [facility] [address] [place] [id number] [place] [address] 57316- 0950 Mar, [facility] (current) use of anticoagulants Z79.01 [place] [address] [place] [id number] [place] [address] 22102- 8187 Mar, Hypertriglyceridemia E78.1 and [facility] (current) use of anticoagulants Z79.01 [place] [address] [place] [id number] [place] [address] 27562- 8626 Feb, [facility] (current) use of anticoagulants Z79.01 [facility] [address] [place] [address] 35902 2546 Feb, [facility] (current) use of anticoagulants Z79.01 [facility] [address] [place] [address] 56527 2546 Feb, [facility] (current) use of anticoagulants Z79.01 [place] [address] [place] [id number] [place] [address] 87605 2546 Dec, [place] [address] [place] [id number] [place] [address] 02296- 4456 Nov, [place] [address] [place] [id number] [place] [address] 76278- 8576 Nov, History of DVT (deep vein thrombosis) Z86.718 ; Tremulousness R25.1 ; Generalized anxiety disorder F41.1 ; Peripheral edema R60.9 and Hypertriglyceridemia E78.1 [place] [address] [place] [address] 42853- 6206 Oct, History of DVT (deep vein thrombosis) Z86.718 [place] [address] [place] [address] 42847 2546 Oct, [place] [address] [place] [address] 46677 2546 Sep, History of DVT (deep vein thrombosis) Z86.718 [facility] [address], [place] [address] 2546 Sep, [facility] (current) use of anticoagulants Z79.01 [place] [address] [place] [address] 17846 2546 July, [place] [address], [place] [address]- 2546 July, demand equipment repairer (current) use of anticoagulants Z79.01 [place] [address] [place] [id number] [place] [address] 71207- 6146 July, demand equipment repairer (current) use of anticoagulants Z79.01 [place] [address] 84981- 3322 Jun, demand equipment repairer (current) use of anticoagulants Z79.01 [facility] [place] [address] 99181 -5428 Jun, Coccyx pain M53.3 ; Encounter for therapeutic drug level monitoring Z51.81 and demand equipment repairer current use 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.01 [place] [address] [place] [id number] [place] [address] 13052- 3731 May, Abnormal mammogram R92.8 [facility] [place] [address] 39023 -6282 May, [facility] [place] [address] 21535 -3312 May, Acute vaginitis N76.0 and Encounter for other screening for malignant neoplasm of breast Z12.39 [place] [address] [place] [id number] [place] [address] 12279- 8433 Apr, [place] [address] [place] [id number] [place] [address] 77176- 1806 Apr, [place] [address] [place] [id number] [place] [address] 84466- 0620 Apr, Peripheral edema R60.9 [place] [address] 25888- 4992 Apr, [facility] (current) use of anticoagulants Z79.01 [place] [address] [place] [address] [place] [address] 57017- 9033 Apr, Peripheral edema R60.9 and [facility] (current) use of anticoagulants Z79.01 [place] [address] [place] [id number] [place] [address] 28968- 0159 Apr, [facility] (current) use of anticoagulants Z79.01 [place] [address] [place] [address] 65917- 8648 Apr, [place] [address] [place] [id number] [place] [address] 13432- 0339 Apr, [facility] (current) use of anticoagulants Z79.01 [place] [address] [place] [id number] [place] [address] 25618- 1776 Apr, Peripheral edema R60.9 [place] [address] [place] [id number] [place] [address] 94761- 5453 Mar, demand equipment repairer (current) use of anticoagulants Z79.01 [place] [address] [place] [id number] [place] [address] 14450- 4573 Mar, [facility] (current) use of anticoagulants Z79.01 and Hypertriglyceridemia E78.1 [place] [address] [place] [id number] [place] [address] 97901- 4485 Mar, [facility] (current) use of anticoagulants Z79.01 [place] [address] [place] [id number] [place] [address] 77832- 3684 Mar, demand equipment repairer (current) use of anticoagulants Z79.01 [place] [address] [place] [id number] [place] [address] 56599- 7009 Mar, [place] [address] [place] [address] [place] [address] 89786- 8579 Mar, [facility] (current) use of anticoagulants Z79.01 ; Hypertriglyceridemia E78.1 ; Personal history of venous thrombosis and embolism Z86.718 and Lump R22.9 [place] [address] [place] [id number] [place] [address] 72251- 5662 Mar, Personal history of venous thrombosis and embolism Z86.718 [place] [address] [place] [id number] [place] [address] 47773- 5086 Mar, Personal history of venous thrombosis and embolism Z86.718 [facility] [address], [place] [address]- 2356 Mar, [facility] [address], [place] [address]- 0486 Dec, Personal history of venous thrombosis and embolism Z86.718 [facility] [address], [place] [address]- 7026 Dec, Personal history of venous thrombosis and embolism V12.51 [facility] [address], [place] [address] 2543 Nov, Personal history of venous thrombosis and embolism V12.51 [facility] [address] [place] [address] 55488- 4879 Nov, Personal history of venous thrombosis and embolism V12.51 [facility] [address] [place] [address] 28062- 2844 Nov, Personal history of venous thrombosis and embolism V12.51 [facility] [address], [place] [address]- 3533 Nov, Personal history of venous thrombosis and embolism V12.51 [facility] [address] [place] [address]- 8264 Nov, [facility] [address] [address]- 8387 Oct, Dysuria 788.1 [facility] [address] [place] [address]- 8828 Oct, Personal history of venous thrombosis and embolism V12.51 [facility] [address], [place] [address]- 0342 Oct, [facility] [address], [place] [address]- 2179 Oct, Personal history of venous thrombosis and embolism V12.51 [facility] [address], [place] [address]- 1866 Sep, Personal history of venous thrombosis and embolism V12.51 [facility] [address], [place] [address]- 8969 Sep, Personal history of venous thrombosis and embolism V12.51 [facility] [address] [place] [id number] [address]- 9540 Aug, Personal history of venous thrombosis and embolism V12.51 [facility] [address], [place] [address]- 3689 Aug, Personal history of venous thrombosis and embolism V12.51 [facility] [address]- 4864 Aug, Personal history of venous thrombosis and embolism V12.51 [facility] [address], [place] [address]- 5101 July, Generalized anxiety disorder 300.02 ; Abdominal pain, left lower quadrant 789.04 and Personal history of venous thrombosis and embolism V12.51 [facility] [address] [address]- 4238 14 Jun, 2014 [facility] [address] 7141 Jun, [facility] [address] 0518 May, [facility] [address] 6427 27 May, 2014 [facility] [address] 9963 17 May, 2014 [facility] [address], [place] [address]- 5616 17 May, 2014 [facility] [address] [place] [id number] 1856 13 May, 2014 [facility] [address] [address]- 4850 May, [facility] [place] [facility] [address] [id number] [place] [address]- 5065 May, [facility] [place] [facility] [address] [id number] [place] [address]- 2784 May, [facility] [place] [facility] [address] [id number] [place] [address]- 4507 Apr, [facility] [place] [facility] [address] [id number] [place] [address]- 1170 Apr, [facility] [place] [facility] [address] [id number] [place] [address]- 8216 Apr, [facility] [place] [facility] [address] [id number] [place] [address]- 9812 Apr, [facility] [place] [facility] [address] [id number] [place] [address]- 1729 Apr, [facility] [place] [facility] [address] [id number] [place] [address]- 1195 Mar, [facility] [place] [facility] [address] [id number] [place] [address]- 9832 Mar, [facility] [place] [facility] [address] [id number] [place] [address]- 9522 Mar, [facility] [place] [facility] [address] [id number] [place] [address]- 6191 Mar, [facility] [place] [facility] [address] [id number] [place] [address]- 2186 Mar, [facility] [place] [facility] [address] [id number] [place] [address]- 4200 Mar, [facility] [place] [facility] [address] [id number] [place] [address]- 3409 Feb, [facility] [place] [facility] [address] [id number] [place] [address]- 4953 Feb, [facility] [place] [facility] [address] [id number] [place]- 4009 Feb, [facility] [place] [facility] [address] [id number] [place] 9379 Feb, [facility] [place] [facility] [address] [id number] [place] [address]- 8307 Feb, [facility] [place] [facility] [address] [id number] [place] [address]- 0775 Feb, [facility] [place] [facility] [address] [id number] [place] [address]- 5462 Feb, [facility] [place] [facility] [address] [id number] [place] [address]- 9456 Feb, [facility] [place] [facility] [address] [id number] [place] 1330 Feb, [facility] [place] [facility] [address] [id number] [place] [address]- 3618 Feb, [facility] [place] [facility] [address] [id number] [place] [address]- 2362 Jan, [facility] [place] [facility] [address] [id number] [place] [address]- 5209 Jan, [facility] [place] [facility] [address] [id number] [place] [address]- 7404 Jan, [facility] [place] [facility] [address] [id number] [place] [address]- 2053 Jan, [facility] [place] [facility] [address] [id number] [place] [address]- 1718 Jan, [facility] [place] [facility] [address] [id number] [place] [address]- 6156 Jan, [facility] [place] [facility] [address] [id number] [place] 7965 Jan, [facility] [place] [facility] [address] [id number] [address]- 2003 Jan, [facility] [place] [facility] [address] [id number] [place] [address]- 2425 Jan, [facility] [place] [facility] [address] [id number] [place] [address]- 9353 Jan, [facility] [place] [facility] [address] [id number] [place] [address]- 9616 Dec, [facility] [place] [facility] [address] [id number] [place] [address]- 2123 Dec, [facility] [place] [facility] [address] [id number] [place] [address]- 0743 Dec, [facility] [place] [facility] [address] [id number] [place] [address]- 5358 Dec, [facility] [place] [facility] [address] [id number] [place] [address] Dec, [facility] [place] [facility] [address] [id number] [place] [address] Dec, [facility] [place] [facility] [address] [id number] [place] [address] Dec, [facility] [place] [facility] [address] [id number] [place] [address] Dec, [facility] [place] [facility] [address] [id number], [place] [address] Dec, [facility] [place] [facility] [address] [id number], [place] [address] Dec, [facility] [place] [facility] [address] [id number] [place] [address] Dec, [facility] [place] [facility] [address] [id number], [place] [address] Dec, [facility] [place] [facility] [address] [id number] [place] [address] Dec, [facility] [place] [facility] [address] [id number] [place] [address]- [address] Dec, [facility] [place] [facility] [address] [id number] [place] [address] Dec, [facility] [place] [facility] [address] [id number] [place] [address] 30 Nov, 2013 [facility] [place] [facility] [address] [id number] [place] [address] 30 Nov, 2013 [facility] [place] [facility] [address] [id number] [place] [address]- [address] 26 Nov, 2013 [facility] [place] [facility] [address] [id number] [place] [address]- [address] 26 Nov, 2013 [facility] [place] [facility] [address] [id number] [place] [address]- [address] 24 Nov, 2013 [facility] [place] [facility] [address] [id number] [place] [address] 24 Nov, 2013 [facility] [place] [facility] [address] [id number] [place] [address]- [address] 23 Nov, 2013 [facility] [place] [facility] [address] [id number] [place] [address]- [address] 23 Nov, 2013 [facility] [place] [facility] [address] [id number] [place] [address] 18 Nov, 2013 [facility] [place] [facility] [address] [id number] [place] [address]- [address] 18 Nov, 2013 [facility] [place] [facility] [address] [id number] [place] [address] 2549 17 Nov, 2013 [facility] [place] [facility] [address] [id number] [place] [address]46 17 Nov, 2013 [facility] [place] [facility] [address] [id number] [place] [address]- [address] 11 Nov, 2013 [facility] [place] [facility] [address] [id number] [place] [address] 11 Nov, 2013 [facility] [place] [facility] [address] [id number] [place] [address]- [address] 10 Nov, 2013 [facility] [place] [facility] [address] [id number] [place] [address] 10 Nov, 2013 [facility] [place] [facility] [address] [id number] [place] [address]- [address] 08 Nov, 2013 [facility] [place] [facility] [address] [id number] [place] [address]- [address] 08 Nov, 2013 [facility] [place] [facility] [address] [id number] [place] [address] Sep, [facility] [place] [facility] [address] [id number] [place] [address] Sep, [facility] [place] [facility] [address] [id number] [place] [address] Sep, [facility] [place] [facility] [address] [id number] [place] [address] Sep, [facility] [place] [facility] [address] [address] [id number] [place] [address] Sep, [facility] [place] [facility] [address] [id number] [place] [address] Sep, [facility] [place] [facility] [address] [id number] [place] [address] Aug, [facility] [place] [facility] [address] [id number] [place] [address] Aug, [facility] [place] [facility] [address] [id number] [place] [address] Aug, [facility] [place] [facility] [address] [id number] [place] [address] 06[address] Aug, [facility] [place] [facility] [address] [id number] [place] [address] 0970 Aug, [facility] [place] [facility] [address] [id number] [place] [address] 0473 Aug, [facility] [place] [facility] [address] [id number] [place] [address] Aug, [facility] [place] [facility] [address] [id number] [place] [address] 4199 Aug, [facility] [place] [facility] [address] [id number] [place] [address] Aug, [facility] [place] [facility] [address] [id number] [place] [address] 64[address] Aug, [facility] [place] [facility] [address] [id number] [place] [address]- 7514 Aug, [facility] [place] [facility] [address] [id number] [place] [address] 3479 July, [facility] [place] [facility] [address] [id number] [place] [address]- 2310 July, [facility] [place] [facility] [address] [id number] [place] [address]- 8635 Jun, [facility] [place] [facility] [address] [id number] [place] [address]- 37[address] Jun, [facility] [place] [facility] [address] [id number] [place] [address]- 5[address] Jun, [facility] [place] [facility] [address] [id number] [place] [address]- 8348 Jun, [facility] [place] [facility] [address] [id number] [place] [address]- 3598 Jun, [facility] [place] [facility] [address] [id number] [place] [address]- 9853 Jun, [facility] [place] [facility] [address] [id number] [place] [address]- 4177 15 Jun, 2013 [facility] [place] [facility] [address] [id number] [place] [address]- 0171 Jun, [facility] [place] [facility] [address] [id number] [place] [address] 4858 Jun, [facility] [place] [facility] [address] [id number] [place] [address]- 5196 Jun, [facility] [place] [facility] [address] [id number] [place] [address]- 2966 Jun, [facility] [place] [facility] [address] [id number] [place] [address]- 1496 Jun, [facility] [place] [facility] [address] [id number] [place] [address]- 3819 May, [facility] [place] [facility] [address] [id number] [place] [address]- 2993 May, [facility] [place] [facility] [address] [id number] [place] [address]- 3951 May, [facility] [place] [facility] [address] [id number] [place] [address]- 4048 May, [facility] [place] [facility] [address] [id number] [place] [address]- 1709 May, [facility] [place] [facility] [address] [id number] [place] [address]- 8324 May, [facility] [place] [facility] [address] [id number] [place] [address]- 8694 May, [facility] [place] [facility] [address] [id number] [place] [address]- 3187 May, [facility] [place] [facility] [address] [id number] [place] [address]- 0441 May, [facility] [place] [facility] [address] [id number] [place] [address]- 4270 May, [facility] [place] [facility] [address] [id number] [place] [address]- 7726 May, [facility] [place] [facility] [address] [id number] [place] [address]- 7874 May, [facility] [place] [facility] [address] [id number] [place] [address]- 6266 Apr, [facility] [place] [facility] [address] [facility] [id number] [place] [address]- 6526 Apr, [facility] [place] [facility] [address] [facility] [id number] [place] [address]- 8206 Apr, [facility] [place] [facility] [address] [facility] [id number] [place] [address]- 7577 Apr, [facility] [place] [facility] [address] [facility] [id number] [place] [address]- 3716 Apr, [facility] [place] [facility] [address] [facility] [id number] [place] [address]- 0516 Apr, [facility] [place] [facility] [address] [facility] [id number] [place] [address]- 2521 Apr, [facility] [place] [facility] [address] [facility] [id number] [place] [address]- 1537 Apr, [facility] [place] [facility] [address] [facility] [id number] [place] [address]- 4705 Apr, [facility] [place] [facility] [address] [facility] [id number] [place] [address]- 0709 Apr, [facility] [place] [facility] [address] [facility] [id number] [place] [address]- 5766 Apr, [facility] [place] [facility] [address] [facility] [id number] [place] [address]- 2543 Apr, [facility] [place] [facility] [address] [facility] [id number] [place] [address]- 0176 Apr, [facility] [place] [facility] [address] [facility] [id number] [place] [address]- 2543 Apr, [facility] [place] [facility] [address] [facility] [id number] [place] [address]- 8361 Apr, [facility] [place] [facility] [address] [id number] [place] [address]- 4172 Apr, [facility] [place] [facility] [address] [id number] [place] [address]- 0696 Apr, [facility] [place] [facility] [address] [facility] [id number] [place] [address]- 0582 Jan, [facility] [place] [facility] [address] [id number] [place] [address]- 8440 Jan, [facility] [place] [facility] [address] [id number] [place] [address]- 0794 Jan, [facility] [place] [facility] [address] [id number] [place] [address]- 9811 Jan, [facility] [place] [facility] [address] [facility] [id number] [place] [address]- 4799 Jan, [facility] [place] [facility] [address] [id number], [place] [address]- 3037 Jan, [facility] [place] [facility] [address] [id number] [place] [address]- 6957 Jan, [facility] [place] [facility] [address] [facility] [id number], [place] [address]- 3044 Dec, [facility] [place] [facility] [address] [id number], [place] [address]- 9465 Dec, [facility] [place] [facility] [address] [id number], [place] [address]- 3080 Dec, [facility] [place] [facility] [address] [id number], [place] [address]- 6845 Nov, [facility] [place] [facility] [address] [id number], [place] [address] 7719 10 Nov, 2012 [facility] [place] [facility] [address] [facility] [id number], [place] [address]- [address]293 05 Nov, 2012 [facility] [place] [facility] [address] [id number] [place] [address]- 4957 Nov, [facility] [address] [id number] [place] [address]- 4000 Oct, [facility] [place] [facility] [address] [id number] [place] [address]- 6258 Oct, [facility] [place] [facility] [address] [id number] [place] [address]- 4622 Oct, [facility] [place] [facility] [address] [id number] [place] [address]- 8147 Oct, [facility] [place] [facility] [address] [id number] [place] [address]- 2390 Oct, [facility] [place] [facility] [address] [id number] [place] [address]- 2731 Sep, [facility] [address] [id number] [place] [address]- 2282 Sep, [facility] [place] [facility] [address] [id number] [place] [address]- 6975 Sep, [facility] [place] [facility] [address] [id number] [place] [address]- 4343 Sep, [facility] [place] [facility] [address] [id number] [place] [address]- 5455 Sep, [facility] [place] [facility] [address] [id number] [place] [address]- 0045 Sep, [facility] [place] [facility] [address] [id number] [place] [address]- 2470 Sep, [facility] [place] [facility] [address] [id number] [place] [address]- 7353 Aug, [facility] [place] [facility] [address] [id number] [place] [address]- 9043 Aug, [facility] [place] [facility] [address] [id number] [place] [address]- 7206 July, [facility] [place] [facility] [address] [id number] [place] [address]- 2816 Jun, [facility] [address] [id number] [place] [address]- 3493 Jun, [facility] [place] [facility] [address] [id number] [place] [address]- 1618 Jun, [facility] [place] [facility] [address] [id number] [place] [address]- 9567 Apr, [facility] [address] [id number] [place] [address]- 3490 Apr, [facility] [place] [facility] [address] [id number] [place] [address]- 0871 Apr, [facility] [address] [id number] [place] [address]- 4808 Mar, [facility] [address] [id number] [place] [address]- 9135 Mar, [facility] [address] [id number] [place] [address]- 4869 Mar, [facility] [address] [id number] [place] [address]- 1684 Mar, [facility] [address] [id number] [place] [address]- 8282 Mar, [facility] [place] [facility] [address] [id number] [place] [address]- 2627 14 Feb, 2012 [facility] [place] [facility] [address] [id number] [place] [address]- 6991 Feb, [facility] [place] [facility] [address] [id number] [place] [address]- 3359 Jan, [facility] [place] [facility] [address] [id number] [place] [address]- 6612 13 Jan, 2012 [facility] [place] [facility] [address] [id number], [place] [address]- 2296 Jan, [facility] [place] [facility] [address] [id number] [place] [address]- 7690 13 Jan, 2012 [facility] [place] [facility] [address] [id number] [place] [address] Jan, [facility] [place] [facility] [address] [facility] [id number] [place] [address]- 3971 Jan, [facility] [place] [facility] [address] [id number] [place] [address]- 8316 Jan, [facility] [place] [facility] [address] [id number] [place] [address]- 0885 Dec, [facility] [place] [facility] [address] [id number] [place] [address]- 2032 Dec, [facility] [place] [facility] [address] [facility] [id number], [place] [address]- 3007 Dec, [facility] [place] [facility] [address] [id number] [place] [address]- 9007 Dec, [facility] [place] [facility] [address] [id number] [place] [address]- 3856 Dec, [facility] [place] [facility] [address] [facility] [id number] [place] [address]- 3519 Dec, [facility] [place] [facility] [address] [id number], [place] [address]- 5460 Dec, [facility] [place] [facility] [address] [facility] [id number], [place] [address]- 6801 Dec, [facility] [place] [facility] [address] [id number], [place] [address]- 7516 Dec, [facility] [place] [facility] [address] [facility] [id number] [place] [address]- 0515 Dec, [facility] [place] [facility] [address] [facility] [id number] [place] [address]- 6585 Oct, [facility] [place] [facility] [address] [id number] [place] [address]- 7653 14 Oct, 2011 [facility] [address] [id number] [place] [address]- 2879 14 Aug, 2011 [facility] [place] [facility] [address] [id number] [place] [address]- 7126 14 Aug, 2011 [facility] [place] [facility] [address] [id number] [place] [address]- 9026 July, [facility] [place] [facility] [address] [id number] [place] [address]- 8170 Jun, [facility] [place] [facility] [address] [id number] [place] [address]- 1016 Jun, [facility] [place] [facility] [address] [id number] [place] [address]- 2656 May, [facility] [place] [facility] [address] [id number] [place] [address]- 7789 Apr, [facility] [place] [facility] [address] [id number] [place] [address]- 1604 Apr, [facility] [place] [facility] [address] [id number] [place] [address]- 2526 Mar, [facility] [place] [facility] [address] [id number] [place] [address]- 2886 16 Mar, 2011 [facility] [place] [facility] [address] [id number] [place] [address]- 1436 19 Feb, 2011 [facility] [place] [facility] [address] [id number] [place] [address]- 6095 15 Feb, 2011 [facility] [place] [facility] [address] [id number] [place] [address]- 7033 13 Feb, 2011 [facility] [place] [facility] [address] [id number] [place] [address]- 8516 13 Feb, 2011 [facility] [place] [facility] [address] [id number] [place] [address]- 6785 Jan, [facility] [address] [facility] [id number], [place] [address]- 5865 Dec, [facility] [address] [facility] [id number], [place] [address]- 5312 Feb, [facility] [id number] [address]28 Feb, [facility] [address] [id number], [place] [address]- 1219 Feb, [facility] [address] [facility] [id number], [place] [address]- 6329 Feb, [facility] [id number] [place] [address]- 4794 Dec, [facility] [id number], [place] [address]- 4969 Dec, [facility] [id number], [place] [address]- 2355 Oct, [facility] [id number], [place] [address]- 9748 Jun, [facility] [id number], [place] [address]- 4849 Feb, [facility] [id number], [place] [address]- 8234 Feb, [facility] [id number], [place] [address]- 0674 Feb, [facility] [address] [id number], [place] [address]- 2499 Dec, IMMUNIZATIONS No Known Immunizations SOCIAL HISTORY Never Assessed REASON FOR VISIT Refill Request PLAN OF CARE VITAL SIGNS MEDICATIONS Medication Instructions Dosage Frequency Start Date End Date Duration Status Hydrochlorothiazide 50 mg TAKE ONE TABLET BY MOUTH DAILY 90 days Active Lexapro 10 mg Orally Once a day 1 tablet 24h 90 days Active RESULTS No Results PROCEDURES No [...]
--- OUTSIDE RECORDS SUMMARY | 2018-08-02 09:02 | XMS REPORT ---
Author Author KIANA ASHLEY [facility] Address [address] [place] [address] Care Team Providers Care Media Professional Name Role Phone ELMO BRUNOY Unavailable PROBLEMS Type Condition ICD9-CM Code SFS53-LX Code Onset Dates Condition Status SNOMED Code Problem Generalized anxiety disorder F41.1 Active 903840639 Problem 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 Active 275785699 Problem History of DVT (deep vein thrombosis) Z86.718 Active 573373336 Problem Factor V Leiden D68.51 Active 625424616 Problem Hypertriglyceridemia E78.1 Active 605601772 Problem nursing home (current) use of anticoagulants Z79.01 Active 512977260 Problem Thyroid nodule E04.1 Active 252366869 Problem Excessive daytime sleepiness G47.19 Active 372038771018 Problem Peripheral edema R60.9 Active 788973312 Problem Pelvic pain R10.2 Active 76601222 Problem Gastroesophageal reflux disease, esophagitis presence not specified K21.9 Active 879433451 Problem Presence of IVC filter Z95.828 Active 665857130 ALLERGIES No Information ENCOUNTERS Encounter Location Date Diagnosis [place] [address] [address] Aug, [facility] [id number] [place] [address] 36464- 1978 Aug, [facility] [id number] [place] [address] 44358- 5965 Aug, Acute pain of left shoulder M25.512 and Thyroid nodule E04.1 [facility] [id number] [place] [address] 76854- 7471 July, Superior glenoid labrum lesion of left shoulder, subsequent encounter S43.432D [place] [id number] [place] [address] 48801- 0988 Jun, History of DVT (deep vein thrombosis) Z86.718 [facility] [id number] [place] [address] 76908- 4696 Jun, History of DVT (deep vein thrombosis) Z86.718 [place] [id number] [place] [address] 21810- 9824 Jun, Impingement syndrome, shoulder, left M75.42 [place] [id number] [place] [address] 07763- 0608 May, Subacromial bursitis of left shoulder joint M75.52 [place] [id number] [place] [address] 02959- 1263 May, [place] [id number] [place] [address] 83812- 3094 May, Hypertriglyceridemia E78.1 ; nursing home (current) use of anticoagulants Z79.01 and Excessive daytime sleepiness G47.19 [place] [id number] [place] [address] 68180- 7793 May, History of DVT (deep vein thrombosis) Z86.718 ; Generalized anxiety disorder F41.1 ; Hypertriglyceridemia E78.1 ; long term care social worker (current) use of anticoagulants Z79.01 ; Subacromial bursitis of left shoulder joint M75.52 and Excessive daytime sleepiness G47.19 [place] [address] [place] [address] 25901- 4688 May, [place] [id number] [place] [address] 86856- 9522 May, nursing home (current) use of anticoagulants Z79.01 [place] [id number] [place] [address] 46838- 9119 Apr, nursing home (current) use of anticoagulants Z79.01 [place] [id number] [place] [address] 14242- 5870 Apr, nursing home (current) use of anticoagulants Z79.01 [facility] [address] [place] [address] 10059 2546 Apr, nursing home (current) use of anticoagulants Z79.01 [facility] [id number] [place] [address] 72175 2546 Apr, [facility] [address] [address] 2546 Apr, nursing home (current) use of anticoagulants Z79.01 [facility] [id number] [place] [address] 58084 2546 13 Apr, 2017 nursing home (current) use of anticoagulants Z79.01 [facility] [id number] [place] [address] 72350 2546 Apr, nursing home (current) use of anticoagulants Z79.01 [facility] [id number] [place] [address] 08534 2546 Apr, nursing home (current) use of anticoagulants Z79.01 [facility] [id number] [place] [address] 64430 2546 Apr, long term care social worker (current) use of anticoagulants Z79.01 [facility] [id number] [place] [address] 60085 2546 Apr, nursing home (current) use of anticoagulants Z79.01 [facility] [id number] [place] [address] 45078 2546 Mar, nursing home (current) use of anticoagulants Z79.01 [facility] [id number] [place] [address] 73719 2546 Mar, [facility] [id number] [place] [address] 10494 2546 Mar, long term care social worker (current) use of anticoagulants Z79.01 [facility] [id number] [place] [address] [id number] Jan, Dental examination Z01.20 [facility] [address] [place] [address] [id number] Jan, [facility] [id number] [place] [address] 04550- 5158 Jan, nursing home (current) use of anticoagulants Z79.01 [facility] [id number] [place] [address] 44192- 3821 Jan, History of DVT (deep vein thrombosis) Z86.718 [facility] [id number] [place] [address] 21118- 4043 Jan, Generalized anxiety disorder F41.1 and Peripheral edema R60.9 [facility] [id number] [place] [address] 45824- 3387 Nov, History of DVT (deep vein thrombosis) Z86.718 [facility] [id number] [place] [address] 86632- 3404 Nov, long term care social worker (current) use of anticoagulants Z79.01 [facility] [address] [place] [address] 07602 -0100 Nov, Acute non-recurrent maxillary sinusitis J01.00 [facility] [address] [place] [address] 61112- 2072 Oct, long term care social worker (current) use of anticoagulants Z79.01 [facility] [address] [place] [address] 53153- 4291 Oct, Personal history of venous thrombosis and embolism Z86.718 [facility] [id number] [place] [address] 95510- 0683 Sep, [facility] [id number] [place] [address] 18099- 0660 Sep, Personal history of venous thrombosis and embolism Z86.718 [facility] [id number] [place] [address] 45493- 4545 Sep, nursing home (current) use of anticoagulants Z79.01 [place] [id number] [place] [address] 14219- 7939 Sep, nursing home (current) use of anticoagulants Z79.01 [place] [address] [id number] [place] [address] 28508- 6895 Sep, Generalized anxiety disorder F41.1 and History of DVT (deep vein thrombosis) Z86.718 [place] [id number] [place] [address] 18650- 1478 Aug, History of DVT (deep vein thrombosis) Z86.718 ; Generalized anxiety disorder F41.1 ; long term care social worker (current) use of anticoagulants Z79.01 ; Pelvic pain R10.2 ; Hypertriglyceridemia E78.1 ; Excessive daytime sleepiness G47.19 ; Colon cancer screening Z12.11 ; Screening for breast cancer Z12.39 ; Peripheral edema R60.9 and Gastroesophageal reflux disease, esophagitis presence not specified K21.9 [place] [id number] [place] [address] 36044- 2043 Aug, [place] [id number] [place] [address] 72957- 6587 July, [place] [id number] [place] [address] 00145- 2563 July, History of DVT (deep vein thrombosis) Z86.718 [place] [id number] [place] [address] 15191- 3159 Jun, Generalized anxiety disorder F41.1 [place] [id number] [place] [address] 13616- 8010 Jun, History of DVT (deep vein thrombosis) Z86.718 [place] [id number] [place] [address] 01829- 5664 Jun, History of DVT (deep vein thrombosis) Z86.718 [place] [address] [place] [address]- 0349 Jun, History of DVT (deep vein thrombosis) Z86.718 [facility] [id number] [place] [address] 21232- 7729 Jun, History of DVT (deep vein thrombosis) Z86.718 [facility] [id number] [place] [address] 55441- 1983 May, History of DVT (deep vein thrombosis) Z86.718 [facility] [id number] [place] [address] 96637- 3324 May, long term care social worker (current) use of anticoagulants Z79.01 [place] [address] 33825- 4159 May, long term care social worker (current) use of anticoagulants Z79.01 [place] [id number] [place] [address] 40789- 0418 May, History of DVT (deep vein thrombosis) Z86.718 [facility] [id number] [place] [address] 46959 -4557 Apr, Bacterial conjunctivitis of left eye H10.9 and H/O motion sickness Z87.898 [facility] [address] [place] [address] 65290- 2065 Apr, History of DVT (deep vein thrombosis) Z86.718 [facility] [id number] [place] [address] 65110- 4598 Apr, History of DVT (deep vein thrombosis) Z86.718 [place] [id number] [place] [address] 18506- 0706 Apr, History of DVT (deep vein thrombosis) Z86.718 [facility] [id number] [place] [address] 09572- 9838 14 Apr, 2016 long term care social worker (current) use of anticoagulants Z79.01 [facility] [address], [place] [address]- 7889 Mar, [facility] [id number] [place] [address] 71535- 7066 Mar, nursing home (current) use of anticoagulants Z79.01 [facility] [address] [place] [address] 50226 2546 Mar, Hypertriglyceridemia E78.1 and long term care social worker (current) use of anticoagulants Z79.01 [place] [id number] [place] [address] 03572 2546 Feb, nursing home (current) use of anticoagulants Z79.01 [place] [id number] [place] [address] 28167 2546 Feb, nursing home (current) use of anticoagulants Z79.01 [place] [id number] [place] [address] 32036- 6136 Feb, long term care social worker (current) use of anticoagulants Z79.01 [place] [address] [place] [address] 08996 2546 Dec, [place] [id number] [place] [address] 03621- 6106 Nov, [place] [address] [place] [address] 05029- 0976 Nov, History of DVT (deep vein thrombosis) Z86.718 ; Tremulousness R25.1 ; Generalized anxiety disorder F41.1 ; Peripheral edema R60.9 and Hypertriglyceridemia E78.1 [place] [address], [place] [address] 2546 Oct, History of DVT (deep vein thrombosis) Z86.718 [place] [address] [place] [address] 26583 2546 Oct, [place] [address] [place] [address] 25816- 2546 Sep, History of DVT (deep vein thrombosis) Z86.718 [facility] [address] [place] [address] 50284- 4507 Sep, long term care social worker (current) use of anticoagulants Z79.01 [facility] [id number] [place] [address] 60051- 1895 July, [facility] [id number] [place] [address] 90513- 0765 July, long term care social worker (current) use of anticoagulants Z79.01 [facility] [id number] [place] [address] 50623- 0360 July, long term care social worker (current) use of anticoagulants Z79.01 [place] [id number] [place] [address] 76760- 1749 Jun, nursing home (current) use of anticoagulants Z79.01 [facility] [id number] [place] [address] 95947 -2509 Jun, Coccyx pain M53.3 ; Encounter for therapeutic drug level monitoring Z51.81 and long term care social worker current use 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.01 [facility] [id number] [place] [address] 64127- 4124 May, Abnormal mammogram R92.8 [facility] [id number] [place] [address] 49374 -3858 May, [facility] [id number] [place] [address] 51800 -4486 May, Acute vaginitis N76.0 and Encounter for other screening for malignant neoplasm of breast Z12.39 [place] [address] [place] [address] 67337- 6863 Apr, [facility] [id number] [place] [address] 88737- 6180 Apr, [facility] [id number] [place] [address] 20022- 8062 Apr, Peripheral edema R60.9 [facility] [id number] [place] [address] 52779 2546 Apr, nursing home (current) use of anticoagulants Z79.01 [facility] [id number] [place] [address] 08399 2546 Apr, Peripheral edema R60.9 and long term care social worker (current) use of anticoagulants Z79.01 [place] [address] [place] [address] 09195 2546 Apr, nursing home (current) use of anticoagulants Z79.01 [place] [id number] [place] [address] 27642 2546 Apr, [place] [address] [place] [address] 74289 2546 Apr, nursing home (current) use of anticoagulants Z79.01 [place] [address] [place] [address] 06182 2546 Apr, Peripheral edema R60.9 [place] [address] [place] [address] 04471 2546 Mar, long term care social worker (current) use of anticoagulants Z79.01 [place] [address] [place] [address] 69160 2546 Mar, long term care social worker (current) use of anticoagulants Z79.01 and Hypertriglyceridemia E78.1 [place] [address] [place] [address] 92423 2546 Mar, nursing home (current) use of anticoagulants Z79.01 [place] [id number] [place] [address] 84842 2546 Mar, long term care social worker (current) use of anticoagulants Z79.01 [place] [id number] [place] [address] 59436 2546 Mar, [place] [address] [place] [address]- 2055 Mar, long term care social worker (current) use of anticoagulants Z79.01 ; Hypertriglyceridemia E78.1 ; Personal history of venous thrombosis and embolism Z86.718 and Lump R22.9 [place] [address] [place] [address] 75791- 3711 Mar, Personal history of venous thrombosis and embolism Z86.718 [place] [address] [place] [address] 93727- 8109 Mar, Personal history of venous thrombosis and embolism Z86.718 [place] [address] [place] [address] 36558- 4414 Mar, [place] [address] [place] [address] 68345- 7242 Dec, Personal history of venous thrombosis and embolism Z86.718 [place] [address] [place] [address] 22636- 2104 Dec, Personal history of venous thrombosis and embolism V12.51 [place] [id number] [place] [address] 19020- 5750 Nov, Personal history of venous thrombosis and embolism V12.51 [place] [address] [place] [address] 30499- 4532 Nov, Personal history of venous thrombosis and embolism V12.51 [place] [address] [place] [address] 38902- 9128 Nov, Personal history of venous thrombosis and embolism V12.51 [place] [address] [place] [address] 52841- 7797 Nov, Personal history of venous thrombosis and embolism V12.51 [place] [address] [place] [address] 78697- 3651 Nov, [place] [id number] [place] [address] 06228- 5215 Oct, Dysuria 788.1 [facility] [address] [address]- 5724 Oct, Personal history of venous thrombosis and embolism V12.51 [facility] [address] [address]- 1583 Oct, [facility] [address], [place] [address]- 6604 Oct, Personal history of venous thrombosis and embolism V12.51 [facility] [address] [place] [address] 84813- 5261 Sep, Personal history of venous thrombosis and embolism V12.51 [facility] [address] [place] [address] 48334- 3338 Sep, Personal history of venous thrombosis and embolism V12.51 [facility] [address] [place] [address] 56536- 6508 Aug, Personal history of venous thrombosis and embolism V12.51 [facility] [address], [place] [address]- 6800 Aug, Personal history of venous thrombosis and embolism V12.51 [facility] [address], [place] [address]- 9120 Aug, Personal history of venous thrombosis and embolism V12.51 [facility] [address] [address]- 9557 July, Generalized anxiety disorder 300.02 ; Abdominal pain, left lower quadrant 789.04 and Personal history of venous thrombosis and embolism V12.51 [facility] [address], [place] [address]- 3802 Jun, [facility] [address], [place] [address]- 3799 Jun, [facility] [address] [address]- 5489 May, [facility] [place] [facility] [address] [id number] [place] [address]- 4978 May, [facility] [place] [facility] [address] [id number] [place] [address]- 5476 May, [facility] [place] [facility] [address] [id number] [place] [address]- 1486 May, [facility] [place] [facility] [address] [id number] [place] [address]- 5302 May, [facility] [place] [facility] [address] [id number] [place] [address]- 5858 May, [facility] [place] [facility] [address] [id number] [place] [address]- 7445 May, [facility] [place] [facility] [address] [facility] [id number] [place] [address]- 8582 May, [facility] [place] [facility] [address] [id number] [place] [address]- 7612 Apr, [facility] [place] [facility] [address] [id number] [place] [address]- 3077 Apr, [facility] [place] [facility] [address] [facility] [id number] [place] [address]- 8123 Apr, [facility] [place] [facility] [address] [facility] [id number] [place] [address]- 8494 Apr, [facility] [place] [facility] [address] [id number] [address]- 0262 Apr, [facility] [place] [facility] [address] [id number] [place] [address]- 5117 Mar, [facility] [place] [facility] [address] [id number] [place] [address]- 4356 Mar, [facility] [place] [facility] [address] [facility] [id number] [address]- 4504 Mar, [facility] [place] [facility] [address] [id number] [place] [address]- 5368 Mar, [facility] [place] [facility] [address] [id number] [place] [address]- 2585 Mar, [facility] [place] [facility] [address] [id number] [place] [address]- 4989 Mar, [facility] [place] [facility] [address] [id number] [place] [address]- 0757 Feb, [facility] [place] [facility] [address] [id number] [place] [address]- 2689 Feb, [facility] [place] [facility] [address] [id number] [place] [address]- 2974 Feb, [facility] [place] [facility] [address] [id number] [place] [address]- 2094 Feb, [facility] [place] [facility] [address] [facility] [id number] [place] [address]- 0992 Feb, [facility] [place] [facility] [address] [id number] [place] [address]- 3941 Feb, [facility] [place] [facility] [address] [id number] [place] [address]- 7944 Feb, [facility] [place] [facility] [address] [id number] [place] [address]- 4360 Feb, [facility] [place] [facility] [address] [id number] [place] [address]- 8086 Feb, [facility] [place] [facility] [address] [id number] [place] [address]- 7302 Feb, [facility] [place] [facility] [address] [id number] [place] [address]- 0751 Jan, [facility] [place] [facility] [address] [id number] [place] [address]- 5252 Jan, [facility] [place] [facility] [address] [facility] [id number] [place] [address]- 2868 Jan, [facility] [place] [facility] [address] [id number] [place] [address]- 8740 Jan, [facility] [place] [facility] [address] [id number] [place] [address]- 0600 Jan, [facility] [place] [facility] [address] [id number] [place] [address]- 8815 Jan, [facility] [place] [facility] [address] [id number] [place] [address]- 9822 Jan, [facility] [place] [facility] [address] [id number] [place] [address]- 7454 Jan, [facility] [place] [facility] [address] [id number] [place] [address] Jan, [facility] [place] [facility] [address] [id number] [place] [address] Jan, [facility] [place] [facility] [address] [id number] [place] [address] Dec, [facility] [place] [facility] [address] [id number] [place] [address] Dec, [facility] [place] [facility] [address] [id number] [place] [address] Dec, [facility] [place] [facility] [address] [id number] [place] [address] Dec, [facility] [place] [facility] [address] [id number] [place] [address] Dec, [facility] [place] [facility] [address] [id number] [place] [address] Dec, [facility] [place] [facility] [address] [id number] [place] [address] Dec, [facility] [place] [facility] [address] [id number] [place] [address] Dec, [facility] [place] [facility] [address] [id number] [place] [address] Dec, [facility] [place] [facility] [address] [id number] [place] [address] Dec, [facility] [place] [facility] [address] [id number] [place] [address] Dec, [facility] [place] [facility] [address] [id number] [place] [address] Dec, [facility] [place] [facility] [address] [id number] [place] [address] Dec, [facility] [place] [facility] [address] [id number] [place] [address] Dec, [facility] [place] [facility] [address] [id number] [place] [address] Dec, [facility] [place] [facility] [address] [id number] [place] [address] 30 Nov, 2013 [facility] [place] [facility] [address] [id number] [place] [address] 30 Nov, 2013 [facility] [place] [facility] [address] [id number] [place] [address] 26 Nov, 2013 [facility] [place] [facility] [address] [id number] [place] [address] 26 Nov, 2013 [facility] [place] [facility] [address] [id number] [address] 24 Sep, 2013 [facility] [place] [facility] [address] [id number] [address] 24 Sep, 2013 [facility] [place] [facility] [address] [id number] [place] [address] 23 Sep, 2013 [facility] [place] [facility] [address] [id number] [place] [address] 23 Nov, 2013 [facility] [place] [facility] [address] [id number] [place] [address] 5339 18 Nov, 2013 [facility] [place] [facility] [address] [id number] [place] [address] 9201 18 Nov, 2013 [facility] [place] [facility] [address] [id number] [place] [address]- 2776 17 Nov, 2013 [facility] [place] [facility] [address] [id number] [place] [address]- 0476 17 Nov, 2013 [facility] [place] [facility] [address] [id number] [place] [address]- 9026 11 Nov, 2013 [facility] [place] [facility] [address] [id number] [place] [address] 2546 11 Nov, 2013 [facility] [place] [facility] [address] [id number] [place] [address]- 8176 10 Nov, 2013 [facility] [place] [facility] [address] [id number] [place] [address]- 5057 10 Nov, 2013 [facility] [place] [facility] [address] [id number] [place] [address]- 0659 08 Nov, 2013 [facility] [place] [facility] [address] [id number] [place] [address]- 9692 08 Nov, 2013 [facility] [place] [facility] [address] [id number] [place] [address]- 7819 Sep, 2013 [facility] [place] [facility] [address] [id number] [place] [address]- 2047 Sep, [facility] [place] [facility] [address] [id number] [place] [address]- 0719 Sep, 2013 [facility] [place] [facility] [address] [id number] [place] [address]- 7679 Sep, 2013 [facility] [place] [facility] [address] [id number] [place] [address]- 5969 Sep, [facility] [place] [facility] [address] [id number] [place] [address]- 1172 Sep, 2013 [facility] [place] [facility] [address] [id number] [place] [address]- 3018 Aug, [facility] [place] [facility] [address] [id number] [place] [address]- 3953 Aug, [facility] [place] [facility] [address] [id number] [place] [address]- 6616 Aug, [facility] [place] [facility] [address] [id number] [place] [address]- 8872 Aug, [facility] [place] [facility] [address] [id number] [place] [address]- 1668 Aug, [facility] [place] [facility] [address] [id number] [place] [address]- 1591 Aug, [facility] [place] [facility] [address] [id number] [place] [address]- 2974 Aug, [facility] [place] [facility] [address] [id number] [place] [address]- 1803 Aug, [facility] [place] [facility] [address] [id number] [place] [address]- 4056 Aug, [facility] [place] [facility] [address] [id number] [place] [address]- 0413 Aug, [facility] [place] [facility] [address] [id number] [place] [address]- 3934 Aug, [facility] [place] [facility] [address] [id number] [place] [address]- 8528 July, [facility] [place] [facility] [address] [id number] [place] [address]- 4035 July, [facility] [place] [facility] [address] [id number] [place] [address]- 1846 Jun, [facility] [place] [facility] [address] [id number] [place] [address]- 5932 Jun, [facility] [place] [facility] [address] [id number] [place] [address]- 7838 Jun, [facility] [place] [facility] [address] [id number] [place] [address]- 1186 18 Jun, 2013 [facility] [place] [facility] [address] [id number] [place] [address]- 0744 18 Jun, 2013 [facility] [place] [facility] [address] [id number] [place] [address]- 1755 18 Jun, 2013 [facility] [place] [facility] [address] [id number] [place] [address]- 5077 15 Jun, 2013 [facility] [place] [facility] [address] [id number] [place] [address]- 4234 15 Jun, 2013 [facility] [place] [facility] [address] [id number] [place] [address]- 4760 Jun, [facility] [place] [facility] [address] [id number] [place] [address]- 6775 Jun, [facility] [place] [facility] [address] [id number] [place] [address]- 1369 Jun, [facility] [place] [facility] [address] [id number] [place] [address]- 8111 Jun, [facility] [place] [facility] [address] [id number] [place] [address]- 7212 May, [facility] [place] [facility] [address] [id number] [place] [address]- 4976 May, [facility] [place] [facility] [address] [id number] [place] [address]- 3127 May, [facility] [place] [facility] [address] [id number] [place] [address]- 9230 May, [facility] [place] [facility] [address] [id number] [place] [address]- 9649 May, [facility] [place] [facility] [address] [id number] [place] [address]- 8133 19 May, 2013 [facility] [place] [facility] [address] [id number] [place] [address]- 5527 May, [facility] [place] [facility] [address] [id number] [place] [address]- 0953 May, [facility] [place] [facility] [address] [id number] [place] [address]- 7945 May, [facility] [place] [facility] [address] [id number] [place] [address]- 7089 May, [facility] [place] [facility] [address] [id number] [place] [address]- 2541 May, [facility] [place] [facility] [address] [id number] [place] [address]- 7307 May, [facility] [place] [facility] [address] [id number] [place] [address]- 7876 Apr, [facility] [place] [facility] [address] [facility] [id number] [place] [address]- 4234 Apr, [facility] [place] [facility] [address] [id number] [place] [address]- 0719 Apr, [facility] [place] [facility] [address] [id number] [place] [address]- 8952 Apr, [facility] [place] [facility] [address] [facility] [id number] [place] [address]- 7556 Apr, [facility] [place] [facility] [address] [facility] [id number] [place] [address]- 4183 Apr, [facility] [place] [facility] [address] [facility] [id number] [place] [address]- 8118 Apr, [facility] [place] [facility] [address] [id number] [place] [address]- 3973 Apr, [facility] [place] [facility] [address] [id number] [place] [address]- 2973 Apr, [facility] [place] [facility] [address] [facility] [id number] [place] [address]- 6864 Apr, [facility] [place] [facility] [address] [facility] [id number] [place] [address]- 4887 Apr, [facility] [place] [facility] [address] [id number] [place] [address]- 9336 Apr, [facility] [place] [facility] [address] [id number] [place] [address]- 2758 Apr, 2013 [facility] [place] [facility] [address] [id number] [place] [address]- 8976 Apr, [facility] [place] [facility] [address] [id number] [place] [address]- 2764 Apr, [facility] [place] [facility] [address] [id number] [place] [address]- 9079 Apr, [facility] [place] [facility] [address] [id number] [place] [address]- 4034 Apr, [facility] [place] [facility] [address] [facility] [id number] [place] [address]- 9801 Jan, [facility] [place] [facility] [address] [id number] [place] [address]- 6552 Jan, [facility] [place] [facility] [address] [facility] [id number] [place] [address]- 2503 Jan, [facility] [place] [facility] [address] [facility] [id number] [place] [address]- 9089 Jan, [facility] [place] [facility] [address] [id number] [place] [address]- 8033 Jan, [facility] [place] [facility] [address] [id number] [place] [address]- 7988 Jan, [facility] [place] [facility] [address] [id number] [place] [address]- 9455 Jan, [facility] [place] [facility] [address] [facility] [id number] [place] [address]- 3947 Dec, [facility] [place] [facility] [address] [id number] [place] [address]- 1076 Dec, [facility] [place] [facility] [address] [id number] [place] [address]- 0527 Dec, [facility] [place] [facility] [address] [id number] [place] [address]- 7842 Nov, [facility] [place] [facility] [address] [id number] [place] [address]- 0263 Nov, [facility] [place] [facility] [address] [id number] [place] [address]- 5870 Nov, [facility] [place] [facility] [address] [id number] [place] [address]- 9386 Nov, [facility] [place] [facility] [address] [id number] [place] [address]- 3750 Oct, [facility] [place] [facility] [address] [id number] [place] [address]- 4040 Oct, [facility] [place] [facility] [address] [id number] [place] [address]- 5450 Oct, [facility] [place] [facility] [address] [id number] [place] [address]- 3962 Oct, [facility] [place] [facility] [address] [id number] [place] [address]- 1020 Oct, [facility] [place] [facility] [address] [id number] [place] [address]- 5289 Sep, [facility] [place] [facility] [address] [id number] [place] [address]- 0096 Sep, [facility] [place] [facility] [address] [id number] [place] [address]- 7954 Sep, [facility] [place] [facility] [address] [id number] [place] [address]- 9783 Sep, [facility] [place] [facility] [address] [id number] [place] [address]- 5462 Sep, [facility] [place] [facility] [address] [id number] [place] [address]- 2546 Sep, [facility] [address] [id number] [place] [address]- 3083 Sep, [facility] [address] [id number] [place] [address]- 2100 Aug, [facility] [address] [id number] [place] [address]- 0699 Aug, [facility] [place] [facility] [address] [id number] [place] [address]- 7265 July, [facility] [address] [id number] [place] [address]- 5844 Jun, [facility] [place] [facility] [address] [id number] [place] [address]- 0871 Jun, [facility] [address] [id number] [place] [address]- 8743 Jun, [facility] [place] [facility] [address] [id number] [place] [address]- 8781 Apr, [facility] [address] [id number] [place] [address]- 7080 Apr, [facility] [place] [facility] [address] [id number] [place] [address]- 9369 Apr, [facility] [address] [id number] [place] [address]- 2348 Mar, [facility] [place] [facility] [address] [id number] [place] [address]- 8346 Mar, [facility] [place] [facility] [address] [id number] [place] [address]- 8759 Mar, [facility] [place] [facility] [address] [id number] [place] [address]- 4259 Mar, [facility] [place] [facility] [address] [id number] [place] [address]- 6566 Mar, [facility] [place] [facility] [address] [id number] [place] [address]- 6319 14 Feb, 2012 [facility] [place] [facility] [address] [id number] [place] [address]- 2754 14 Feb, 2012 [facility] [place] [facility] [address] [id number] [place] [address]- 1636 13 Jan, 2012 [facility] [place] [facility] [address] [id number] [place] [address]- 8592 13 Jan, 2012 [facility] [place] [facility] [address] [id number] [place] [address]- 0656 13 Jan, 2012 [facility] [place] [facility] [address] [id number] [place] [address]- 6214 13 Jan, 2012 [facility] [place] [facility] [address] [id number] [place] [address]- 0872 07 Jan, 2012 [facility] [place] [facility] [address] [id number] [place] [address]- 4208 Jan, [facility] [place] [facility] [address] [id number] [place] [address]- 5265 06 Jan, 2012 [facility] [place] [facility] [address] [id number] [place] [address]- 6162 31 Dec, 2011 [facility] [place] [facility] [address] [facility] [id number] [place] [address]- 9866 31 Dec, 2011 [facility] [place] [facility] [address] [id number] [place] [address]- 7082 30 Dec, 2011 [facility] [place] [facility] [address] [id number] [place] [address]- 8743 30 Dec, 2011 [facility] [place] [facility] [address] [id number] [place] [address]- 9436 30 Dec, 2011 [facility] [place] [facility] [address] [facility] [id number] [place] [address]- 9186 30 Dec, 2011 [facility] [place] [facility] [address] [id number] [place] [address]- 0027 Dec, [facility] [place] [facility] [address] [id number] [place] [address]- 0149 Dec, [facility] [place] [facility] [address] [id number] [place] [address]- 4856 Dec, [facility] [place] [facility] [address] [id number] [place] [address]- 9693 Dec, [facility] [place] [facility] [address] [id number] [place] [address]- 4100 Oct, [facility] [place] [facility] [address] [id number] [place] [address]- 6318 Oct, [facility] [place] [facility] [address] [id number] [place] [address]- 4060 Aug, [facility] [place] [facility] [address] [id number] [place] [address]- 5148 Aug, [facility] [place] [facility] [address] [id number] [place] [address]- 3385 July, [facility] [place] [facility] [address] [id number] [place] [address]- 5465 Jun, [facility] [place] [facility] [address] [id number] [place] [address]- 8317 Jun, [facility] [place] [facility] [address] [id number] [place] [address]- 9192 May, [facility] [place] [facility] [address] [id number] [address]- 3096 Apr, [facility] [place] [facility] [address] [id number] [place] [address]- 2762 Apr, [facility] [place] [facility] [address] [id number] [address]- 7236 Mar, [facility] [place] [facility] [address] [id number] [place] [address]- 0706 Mar, [facility] [place] [facility] [address] [id number] [place] [address]- 2131 19 Feb, 2011 [facility] [address] [id number] [place] [address]- 2606 15 Feb, 2011 [facility] [place] [facility] [address] [id number] [place] [address] 2546 13 Feb, 2011 [facility] [address] [id number] [place] [address]- 3016 13 Feb, 2011 [facility] [place] [facility] [address] [id number] [place] [address] 2541 Jan, [facility] [address] [id number] [place] [address]- 0710 17 Dec, 2010 [facility] [address] [id number] [place] [address]- 2510 08 Feb, 2010 [facility] [address] [id number] [place] [address]- 3387 02 Feb, 2010 [facility] [address] [id number] [place] [address]- 7896 Feb, [facility] [place] [facility] [address] [id number] [place] [address]- 6124 Feb, [facility] [address] [facility] [id number] [place] [address]- 5275 15 Dec, 2009 [facility] [place] [facility] [address] [id number] [place] [address]- 7226 15 Dec, 2009 [facility] [place] [facility] [address] [id number] [place] [address]- 3609 Oct, [facility] [place] [facility] [address] [id number] [place] [address]- 9202 15 Jun, 2009 [facility] [place] [facility] [address] [id number] [place] [address] 2541 Feb, [facility] [place] [facility] [address] [id number] [place] [address]- 7403 Feb, [facility] [address] [facility] [id number] [place] [address]- 7206 Feb, [facility] [address] [facility] [id number], [place] [address] 9458 Dec, IMMUNIZATIONS No Known Immunizations SOCIAL HISTORY Never Assessed REASON FOR VISIT Lab (walk-in) PLAN OF CARE VITAL SIGNS MEDICATIONS Unknown Medications RESULTS Name Result Date Reference Range INR (IN HOUSE) 2017-05-15 INR 2.0 1.10 - 3.30 PREVIOUS INR 4.4 CURRENT COUMADIN DOSE took 3mg last night NEW COUMADIN DOSE Lot # [id number] Exp date 01/2018 PROCEDURES Procedure Date Ordered Result Body Site PROTHROMBIN TIME May 15, 2017 INSTRUCTIONS MEDICATIONS ADMINISTERED No Known Medications [...]
--- OUTSIDE RECORDS SUMMARY | 2018-08-02 09:02 | XMS REPORT ---
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
--- OUTSIDE RECORDS SUMMARY | 2018-08-02 09:03 | XMS REPORT ---
Author Author KIANA ASHLEY [facility] Address [address] [place] [address] Care Team Providers [employer] Sales Agent Name Role Phone ELMO BRUNOY Unavailable PROBLEMS Type Condition ICD9-CM Code KNS76-VI Code Onset Dates Condition Status SNOMED Code Problem Generalized anxiety disorder F41.1 Active 205048853 Problem 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 Active 211755741 Problem History of DVT (deep vein thrombosis) Z86.718 Active 324843597 Problem Factor V Leiden D68.51 Active 700907745 Problem Hypertriglyceridemia E78.1 Active 002258409 Problem skilled nursing (current) use of anticoagulants Z79.01 Active 931215652 Problem Thyroid nodule E04.1 Active 695571191 Problem Excessive daytime sleepiness G47.19 Active 742795373585 Problem Peripheral edema R60.9 Active 620561841 Problem Pelvic pain R10.2 Active 26159460 Problem Gastroesophageal reflux disease, esophagitis presence not specified K21.9 Active 139896091 Problem Presence of IVC filter Z95.828 Active 493757647 ALLERGIES No Information ENCOUNTERS Encounter Location Date Diagnosis [place] [id number] [address] Aug, [facility] [id number] [place] [address] 54561- 7678 Aug, [facility] [id number] [place] [address] 03017- 1596 Aug, Acute pain of left shoulder M25.512 [address]1 [facility] [address] [place] [address] 66183- 7674 July, Superior glenoid labrum lesion of left shoulder, subsequent encounter S43.432D [place] [id number] [place] [address] 55115- 3330 Jun, History of DVT (deep vein thrombosis) Z86.718 [facility] [id number] [place] [address] 37400- 7316 Jun, History of DVT (deep vein thrombosis) Z86.718 [place] [id number] [place] [address] 22006- 0688 Jun, Impingement syndrome, shoulder, left M75.42 [place] [id number] [place] [address] 10144- 3414 May, Subacromial bursitis of left shoulder joint M75.52 [place] [id number] [place] [address] 22928- 2736 May, [place] [id number] [place] [address] 39414- 5922 May, Hypertriglyceridemia E78.1 ; skilled nursing (current) use of anticoagulants Z79.01 and Excessive daytime sleepiness G47.19 [place] [id number] [place] [address] 50624- 1633 May, History of DVT (deep vein thrombosis) Z86.718 ; Generalized anxiety disorder F41.1 ; Hypertriglyceridemia E78.1 ; manager intermediate (current) use of anticoagulants Z79.01 ; Subacromial bursitis of left shoulder joint M75.52 and Excessive daytime sleepiness G47.19 [place] [id number] [place] [address] 61867- 6387 May, [place] [id number] [place] [address] 45279- 7466 May, skilled nursing (current) use of anticoagulants Z79.01 [place] [id number] [place] [address] 97646- 7068 Apr, skilled nursing (current) use of anticoagulants Z79.01 [place] [id number] [place] [address] 79459- 9792 Apr, skilled nursing (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 [id number] [place] [address] 98888 2546 Apr, skilled nursing (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 [id number] [place] [address] 07396 2546 Apr, [facility] [address] [address] 2546 Apr, skilled nursing (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 [id number] [place] [address] 01343 2546 13 Apr, 2017 skilled nursing (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 [id number] [place] [address] 08449 2546 Apr, skilled nursing (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 [id number] [place] [address] 93041 2546 Apr, skilled nursing (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 [id number] [place] [address] 56922 2546 Apr, manager intermediate (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 [id number] [place] [address] 57516 2546 Apr, skilled nursing (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 [id number] [place] [address] 63484 2546 Mar, skilled nursing (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 [id number] [place] [address] 37339 2546 Mar, [facility] [id number] [place] [address] 93356 2546 Mar, manager intermediate (current) use of anticoagulants Z79.01 [facility] [place] [facility] [id number] [place] [address] [id number] Jan, Dental examination Z01.20 [facility] [place] [facility] [id number] [place] [id number] Jan, [facility] [id number] [place] [address] 23885- 9703 Jan, skilled nursing (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 [id number] [place] [address] 36097- 0592 Jan, History of DVT (deep vein thrombosis) Z86.718 [facility] [id number] [place] [address] 76386- 3696 Jan, Generalized anxiety disorder F41.1 and Peripheral edema R60.9 [facility] [id number] [place] [address] 09493- 7032 Nov, History of DVT (deep vein thrombosis) Z86.718 [facility] [id number] [place] [address] 62910- 5320 Nov, manager intermediate (current) use of anticoagulants Z79.01 [facility] [address] [place] [address] 96737 -6661 Nov, Acute non-recurrent maxillary sinusitis J01.00 [facility] [address] [place] [address] 34092- 0437 Oct, manager intermediate (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 [id number] [place] [address] 07277- 0233 Oct, Personal history of venous thrombosis and embolism Z86.718 [facility] [id number] [place] [address] 25775- 2226 Sep, [facility] [id number] [place] [address] 15496- 1605 Sep, Personal history of venous thrombosis and embolism Z86.718 [facility] [id number] [place] [address] 77610- 5410 Sep, skilled nursing (current) use of anticoagulants Z79.01 [place] [id number] [place] [address] 99917- 8397 Sep, skilled nursing (current) use of anticoagulants Z79.01 [place] [id number] [place] [address] 92665- 0028 Sep, Generalized anxiety disorder F41.1 and History of DVT (deep vein thrombosis) Z86.718 [place] [id number] [place] [address] 98452- 2411 Aug, History of DVT (deep vein thrombosis) Z86.718 ; Generalized anxiety disorder F41.1 ; manager intermediate (current) use of anticoagulants Z79.01 ; Pelvic pain R10.2 ; Hypertriglyceridemia E78.1 ; Excessive daytime sleepiness G47.19 ; Colon cancer screening Z12.11 ; Screening for breast cancer Z12.39 ; Peripheral edema R60.9 and Gastroesophageal reflux disease, esophagitis presence not specified K21.9 [place] [id number] [place] [address] 05978- 5978 Aug, [place] [id number] [place] [address] 60724- 2011 July, [place] [id number] [place] [address] 94385- 5066 July, History of DVT (deep vein thrombosis) Z86.718 [place] [id number] [place] [address] 16240- 2052 Jun, Generalized anxiety disorder F41.1 [place] [id number] [place] [address] 17087- 4404 Jun, History of DVT (deep vein thrombosis) Z86.718 [place] [id number] [place] [address] 42601- 4527 Jun, History of DVT (deep vein thrombosis) Z86.718 [place] [address] [place] [address]- 6392 Jun, History of DVT (deep vein thrombosis) Z86.718 [facility] [id number] [place] [address] 64103- 7777 Jun, History of DVT (deep vein thrombosis) Z86.718 [facility] [id number] [place] [address] 24022- 0228 May, History of DVT (deep vein thrombosis) Z86.718 [facility] [id number] [place] [address] 72558- 2511 May, manager intermediate (current) use of anticoagulants Z79.01 [place] [address] 42839- 5386 May, manager intermediate (current) use of anticoagulants Z79.01 [place] [id number] [place] [address] 08446- 7130 May, History of DVT (deep vein thrombosis) Z86.718 [facility] [id number] [place] [address] 19262 -4259 Apr, Bacterial conjunctivitis of left eye H10.9 and H/O motion sickness Z87.898 [facility] [address] [place] [address] 92058- 4572 Apr, History of DVT (deep vein thrombosis) Z86.718 [facility] [id number] [place] [address] 20290- 7626 Apr, History of DVT (deep vein thrombosis) Z86.718 [place] [id number] [place] [address] 15401- 1594 Apr, History of DVT (deep vein thrombosis) Z86.718 [facility] [id number] [place] [address] 70893- 0648 14 Apr, 2016 manager intermediate (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 [address] [address]- 2831 Mar, [place] [id number] [place] [address] 36253- 6146 Mar, skilled nursing (current) use of anticoagulants Z79.01 [place] [id number] [place] [address] 25582 2546 Mar, manager intermediate (current) use of anticoagulants Z79.01 and Hypertriglyceridemia E78.1 [place] [id number] [place] [address] 75536 2546 Feb, skilled nursing (current) use of anticoagulants Z79.01 [place] [id number] [place] [address] 02078 2546 Feb, skilled nursing (current) use of anticoagulants Z79.01 [place] [id number] [place] [address] 04601 2546 Feb, manager intermediate (current) use of anticoagulants Z79.01 [place] [address] [place] [address] 10601 2546 Dec, [place] [id number] [place] [address] 48610- 3076 Nov, [place] [address] [place] [address] 94844- 7346 Nov, History of DVT (deep vein thrombosis) Z86.718 ; Tremulousness R25.1 ; Generalized anxiety disorder F41.1 ; Peripheral edema R60.9 and Hypertriglyceridemia E78.1 [place] [address] [address] 2546 Oct, History of DVT (deep vein thrombosis) Z86.718 [place] [address] [place] [address] 14767 2546 Oct, [place] [address] [place] [address] 87283- 2546 Sep, History of DVT (deep vein thrombosis) Z86.718 [facility] [address] [place] [address] 98495- 5033 Sep, manager intermediate (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 [id number] [place] [address] 08644- 9130 July, [facility] [id number] [place] [address] 06002- 4221 July, manager intermediate (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 [id number] [place] [address] 58925- 4510 July, manager intermediate (current) use of anticoagulants Z79.01 [place] [id number] [place] [address] 96113- 9625 Jun, skilled nursing (current) use of anticoagulants Z79.01 [facility] [id number] [place] [address] 05187 -4876 Jun, Coccyx pain M53.3 ; Encounter for therapeutic drug level monitoring Z51.81 and manager intermediate current use 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.01 [facility] [id number] [place] [address] 21433- 4155 May, Abnormal mammogram R92.8 [facility] [id number] [place] [address] 72352 -7775 May, [facility] [id number] [place] [address] 47616 -8685 May, Acute vaginitis N76.0 and Encounter for other screening for malignant neoplasm of breast Z12.39 [place] [id number] [place] [address] 93964- 3108 Apr, [facility] [id number] [place] [address] 48991- 6335 Apr, [facility] [id number] [place] [address] 18128- 6680 Apr, Peripheral edema R60.9 [facility] [id number] [place] [address] 24523 2546 Apr, skilled nursing (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 [id number] [place] [address] 74890 2546 Apr, Peripheral edema R60.9 and manager intermediate (current) use of anticoagulants Z79.01 [place] [id number] [place] [address] 67429 2546 Apr, skilled nursing (current) use of anticoagulants Z79.01 [place] [id number] [place] [address] 58764 2546 Apr, [place] [id number] [place] [address] 80525 2546 Apr, skilled nursing (current) use of anticoagulants Z79.01 [place] [id number] [place] [address] 79538 2546 Apr, Peripheral edema R60.9 [place] [id number] [place] [address] 58489 2546 Mar, manager intermediate (current) use of anticoagulants Z79.01 [place] [id number] [place] [address] 45252 2546 Mar, manager intermediate (current) use of anticoagulants Z79.01 and Hypertriglyceridemia E78.1 [place] [id number] [place] [address] 47721 2546 Mar, skilled nursing (current) use of anticoagulants Z79.01 [place] [id number] [place] [address] 51718 2546 Mar, manager intermediate (current) use of anticoagulants Z79.01 [place] [id number] [place] [address] 32112 2546 Mar, [place] [address] [place] [address]- 5741 Mar, manager intermediate (current) use of anticoagulants Z79.01 ; Hypertriglyceridemia E78.1 ; Personal history of venous thrombosis and embolism Z86.718 and Lump R22.9 [place] [address] [place] [address] 22677- 8102 Mar, Personal history of venous thrombosis and embolism Z86.718 [place] [id number] [place] [address] 50409- 5929 Mar, Personal history of venous thrombosis and embolism Z86.718 [place] [id number] [place] [address] 48962- 9901 Mar, [place] [id number] [place] [address] 64865- 8868 Dec, Personal history of venous thrombosis and embolism Z86.718 [place] [id number] [place] [address] 22482- 5418 Dec, Personal history of venous thrombosis and embolism V12.51 [place] [id number] [place] [address] 74018- 8306 Nov, Personal history of venous thrombosis and embolism V12.51 [place] [id number] [place] [address] 73511- 0522 Nov, Personal history of venous thrombosis and embolism V12.51 [place] [id number] [place] [address] 71622- 9286 Nov, Personal history of venous thrombosis and embolism V12.51 [place] [address] [place] [address] 95327- 6720 Nov, Personal history of venous thrombosis and embolism V12.51 [place] [address] [place] [address] 78514- 9329 Nov, [place] [id number] [place] [address] 47829- 2965 Oct, Dysuria 788.[address] [facility] [address] [address]- 7134 Oct, Personal history of venous thrombosis and embolism V12.51 [facility] [address] [address]- 7195 Oct, [facility] [address] [address]- 9089 Oct, Personal history of venous thrombosis and embolism V12.51 [facility] [id number] [place] [address] 74340- 1307 Sep, Personal history of venous thrombosis and embolism V12.51 [facility] [address] [place] [address] 78121- 7156 Sep, Personal history of venous thrombosis and embolism V12.51 [facility] [address] [place] [address] 68193- 0631 Aug, Personal history of venous thrombosis and embolism V12.51 [facility] [address] [address]- 9515 Aug, Personal history of venous thrombosis and embolism V12.51 [facility] [address] [address]- 1848 Aug, Personal history of venous thrombosis and embolism V12.51 [facility] [address] [address]- 6212 July, Generalized anxiety disorder 300.02 ; Abdominal pain, left lower quadrant 789.04 and Personal history of venous thrombosis and embolism V12.51 [facility] [address] [address]- 7562 Jun, [facility] [address] [address]- 5051 Jun, [facility] [address] [address]- 1051 May, [facility] [place] [facility] [address] [id number] [place] [address]- 3122 May, [facility] [place] [facility] [address] [id number] [place] [address]- 7775 May, [facility] [place] [facility] [address] [id number] [place] [address]- 7712 May, [facility] [place] [facility] [address] [id number] [place] [address]- 4419 May, [facility] [place] [facility] [address] [id number] [place] [address]- 9392 May, [facility] [place] [facility] [address] [id number] [place] [address]- 5827 May, [facility] [place] [facility] [address] [facility] [id number] [place] [address]- 5559 May, [facility] [place] [facility] [address] [id number] [place] [address]- 5577 Apr, [facility] [place] [facility] [address] [id number] [place] [address]- 8056 Apr, [facility] [place] [facility] [address] [facility] [id number] [place] [address]- 0357 Apr, [facility] [place] [facility] [address] [facility] [id number] [place] [address]- 3434 Apr, [facility] [place] [facility] [address] [id number] [place] [address]- 2397 Apr, [facility] [place] [facility] [address] [id number] [place] [address]- 9483 Mar, [facility] [place] [facility] [address] [id number] [place] [address]- 4979 Mar, [facility] [place] [facility] [address] [facility] [id number] [address]- 6357 Mar, [facility] [place] [facility] [address] [id number] [place] [address]- 5343 Mar, [facility] [place] [facility] [address] [id number] [place] [address]- 6700 Mar, [facility] [place] [facility] [address] [id number] [place] [address]- 8017 Mar, [facility] [place] [facility] [address] [id number] [place] [address]- 6570 Feb, [facility] [place] [facility] [address] [id number] [place] [address]- 0536 Feb, [facility] [place] [facility] [address] [id number] [place] [address]- 8318 Feb, [facility] [place] [facility] [address] [id number] [place] [address]- 3808 Feb, [facility] [place] [facility] [address] [facility] [id number] [place] [address] Feb, [facility] [place] [facility] [address] [id number] [place] [address] Feb, [facility] [place] [facility] [address] [id number] [place] [address] Feb, [facility] [place] [facility] [address] [id number] [place] [address] Feb, [facility] [place] [facility] [address] [id number] [place] [address] Feb, [facility] [place] [facility] [address] [id number] [place] [address] Feb, [facility] [place] [facility] [address] [id number] [place] [address] Jan, [facility] [place] [facility] [address] [id number] [place] [address] Jan, [facility] [place] [facility] [address] [facility] [id number] [place] [address] Jan, [facility] [place] [facility] [address] [id number] [place] [address] Jan, [facility] [place] [facility] [address] [id number] [place] [address] Jan, [facility] [place] [facility] [address] [id number] [place] [address] Jan, [facility] [place] [facility] [address] [id number] [place] [address] Jan, [facility] [place] [facility] [address] [id number] [place] [address] Jan, [facility] [place] [facility] [address] [id number] [place] [address] Jan, [facility] [place] [facility] [address] [id number] [place] [address] Jan, [facility] [place] [facility] [address] [id number] [place] [address] Dec, [facility] [place] [facility] [address] [id number] [place] [address] Dec, [facility] [place] [facility] [address] [id number] [place] [address] Dec, [facility] [place] [facility] [address] [id number] [place] [address] Dec, [facility] [place] [facility] [address] [id number] [place] [address] Dec, [facility] [place] [facility] [address] [id number] [place] [address] Dec, [facility] [place] [facility] [address] [id number] [place] [address] Dec, [facility] [place] [facility] [address] [id number] [place] [address] Dec, [facility] [place] [facility] [address] [id number] [place] [address] Dec, [facility] [place] [facility] [address] [id number] [place] [address] Dec, [facility] [place] [facility] [address] [id number] [place] [address]- [address] Dec, [facility] [place] [facility] [address] [id number] [place] [address] Dec, [facility] [place] [facility] [address] [id number] [place] [place] [address] Dec, [facility] [place] [facility] [address] [id number] [place] [address] Dec, [facility] [place] [facility] [address] [id number] [place] [address] 9114 Dec, [facility] [place] [facility] [address] [id number] [place] [address] 7272 30 Nov, 2013 [facility] [place] [facility] [address] [id number] [place] [address]- 3114 30 Nov, 2013 [facility] [place] [facility] [address] [id number] [place] [address]- 7525 26 Nov, 2013 [facility] [place] [facility] [address] [id number] [place] [address]- 0152 26 Nov, 2013 [facility] [place] [facility] [address] [id number] [address] 24 Sep, 2013 [facility] [place] [facility] [address] [id number] [address]- [address] 24 Sep, 2013 [facility] [place] [facility] [address] [id number] [place] [address]- 7359 23 Sep, 2013 [facility] [place] [facility] [address] [id number] [place] [address]- 5734 23 Nov, 2013 [facility] [place] [facility] [address] [id number] [place] [address]- 1657 18 Nov, 2013 [facility] [place] [facility] [address] [id number] [place] [address]- 6442 18 Nov, 2013 [facility] [place] [facility] [address] [id number] [place] [address]- 4306 17 Nov, 2013 [facility] [place] [facility] [address] [id number] [place] [address]- 4496 17 Nov, 2013 [facility] [place] [facility] [address] [id number] [place] [address]- 0226 11 Nov, 2013 [facility] [place] [facility] [address] [id number] [place] [address] 2546 11 Nov, 2013 [facility] [place] [facility] [address] [id number] [place] [address]- 5286 10 Nov, 2013 [facility] [place] [facility] [address] [id number] [place] [address]- 6108 10 Nov, 2013 [facility] [place] [facility] [address] [id number] [place] [address]- 3141 08 Nov, 2013 [facility] [place] [facility] [address] [id number] [place] [address]- 3770 08 Nov, 2013 [facility] [place] [facility] [address] [id number] [place] [address]- 3797 Sep, 2013 [facility] [place] [facility] [address] [id number] [place] [address]- 2982 Sep, [facility] [place] [facility] [address] [id number] [place] [address]- 7314 Sep, 2013 [facility] [place] [facility] [address] [id number] [place] [address]- 4041 Sep, 2013 [facility] [place] [facility] [address] [id number] [place] [address]- 6992 Sep, [facility] [place] [facility] [address] [id number] [place] [address]- 3745 Sep, 2013 [facility] [place] [facility] [address] [id number] [place] [address]- 8830 Aug, [facility] [place] [facility] [address] [id number] [place] [address]- 5218 Aug, [facility] [place] [facility] [address] [id number] [place] [address]- 0684 Aug, [facility] [place] [facility] [address] [id number] [place] [address]- 3426 Aug, [facility] [place] [facility] [address] [id number] [place] [address]- 4474 Aug, [facility] [place] [facility] [address] [id number] [place] [address]- 9576 Aug, [facility] [place] [facility] [address] [id number] [place] [address]- 0709 Aug, [facility] [place] [facility] [address] [id number] [place] [address]- 5779 Aug, [facility] [place] [facility] [address] [id number] [place] [address]- 7038 Aug, [facility] [place] [facility] [address] [id number] [place] [address]- 4045 Aug, [facility] [place] [facility] [address] [id number] [place] [address]- 1765 Aug, [facility] [place] [facility] [address] [id number] [place] [address]- 7755 July, [facility] [place] [facility] [address] [id number] [place] [address]- 6316 July, [facility] [place] [facility] [address] [id number] [place] [address]- 4990 Jun, [facility] [place] [facility] [address] [id number] [place] [address]- 9923 Jun, [facility] [place] [facility] [address] [id number] [place] [address]- 1099 Jun, [facility] [place] [facility] [address] [id number] [place] [address]- 6888 18 Jun, 2013 [facility] [place] [facility] [address] [id number] [place] [address]- 1138 18 Jun, 2013 [facility] [place] [facility] [address] [id number] [place] [address]- 2181 18 Jun, 2013 [facility] [place] [facility] [address] [id number] [place] [address]- 5917 15 Jun, 2013 [facility] [place] [facility] [address] [id number] [place] [address]- 5499 15 Jun, 2013 [facility] [place] [facility] [address] [id number] [place] [address]- 6920 Jun, [facility] [place] [facility] [address] [id number] [place] [address]- 1962 Jun, [facility] [place] [facility] [address] [id number] [place] [address]- 8061 Jun, [facility] [place] [facility] [address] [id number] [place] [address]- 5361 Jun, [facility] [place] [facility] [address] [id number] [place] [address]- 8352 May, [facility] [place] [facility] [address] [id number] [place] [address]- 7457 May, [facility] [place] [facility] [address] [id number] [place] [address]- 7495 May, [facility] [place] [facility] [address] [id number] [place] [address]- 9959 May, [facility] [place] [facility] [address] [id number] [place] [address]- 9563 May, [facility] [place] [facility] [address] [id number] [place] [address]- 8023 19 May, 2013 [facility] [place] [facility] [address] [id number] [place] [address]- 8466 May, [facility] [place] [facility] [address] [id number] [place] [address]- 4240 May, [facility] [place] [facility] [address] [id number] [place] [address]- 1636 May, [facility] [place] [facility] [address] [id number] [place] [address]- 4682 May, [facility] [place] [facility] [address] [id number] [place] [address]- 9749 May, [facility] [place] [facility] [address] [id number] [place] [address]- 6829 May, [facility] [place] [facility] [address] [id number] [place] [address]- 4502 Apr, [facility] [place] [facility] [address] [facility] [id number] [place] [address]- 8930 Apr, [facility] [place] [facility] [address] [id number] [place] [address]- 2300 Apr, [facility] [place] [facility] [address] [id number] [place] [address]- 9079 Apr, [facility] [place] [facility] [address] [facility] [id number] [place] [address]- 7908 Apr, [facility] [place] [facility] [address] [facility] [id number] [place] [address]- 6505 Apr, [facility] [place] [facility] [address] [facility] [id number] [place] [address]- 6464 Apr, [facility] [place] [facility] [address] [id number] [place] [address]- 7716 Apr, [facility] [place] [facility] [address] [id number] [place] [address]- 5642 Apr, [facility] [place] [facility] [address] [facility] [id number] [place] [address]- 9925 Apr, [facility] [place] [facility] [address] [facility] [id number] [place] [address]- 1200 Apr, [facility] [place] [facility] [address] [id number] [place] [address]- 2626 Apr, [facility] [place] [facility] [address] [id number] [place] [address]- 8132 Apr, 2013 [facility] [place] [facility] [address] [id number] [place] [address]- 9786 Apr, [facility] [place] [facility] [address] [id number] [place] [address]- 0410 Apr, [facility] [place] [facility] [address] [id number] [place] [address]- 5014 Apr, [facility] [place] [facility] [address] [id number] [place] [address]- 1431 Apr, [facility] [place] [facility] [address] [facility] [id number] [place] [address]- 6146 Jan, [facility] [place] [facility] [address] [id number] [place] [address]- 5161 Jan, [facility] [place] [facility] [address] [facility] [id number] [place] [address]- 2426 Jan, [facility] [place] [facility] [address] [facility] [id number] [place] [address]- 9441 Jan, [facility] [place] [facility] [address] [id number] [place] [address]- 3188 Jan, [facility] [place] [facility] [address] [id number] [place] [address]- 8663 Jan, [facility] [place] [facility] [address] [id number] [place] [address]- 0900 Jan, [facility] [place] [facility] [address] [facility] [id number] [place] [address]- 9927 Dec, [facility] [place] [facility] [address] [id number] [place] [address]- 7524 Dec, [facility] [place] [facility] [address] [id number] [place] [address]- 5929 Dec, [facility] [place] [facility] [address] [id number] [place] [address]- 1963 Nov, [facility] [place] [facility] [address] [id number] [place] [address]- 0705 Nov, [facility] [place] [facility] [address] [id number] [place] [address]- 3438 Nov, [facility] [place] [facility] [address] [id number] [place] [address]- 5534 Nov, [facility] [place] [facility] [address] [id number] [place] [address]- 6499 Oct, [facility] [place] [facility] [address] [id number] [place] [address]- 1729 Oct, [facility] [place] [facility] [address] [id number] [place] [address]- 9579 Oct, [facility] [place] [facility] [address] [id number] [place] [address]- 5081 Oct, [facility] [place] [facility] [address] [id number] [place] [address]- 0499 Oct, [facility] [place] [facility] [address] [id number] [place] [address]- 3106 Sep, [facility] [place] [facility] [address] [id number] [place] [address]- 0392 Sep, [facility] [place] [facility] [address] [id number] [place] [address]- 4306 Sep, [facility] [place] [facility] [address] [id number] [place] [address]- 8062 Sep, [facility] [place] [facility] [address] [id number] [place] [address]- 1108 Sep, [facility] [place] [facility] [address] [id number] [place] [address]- 2546 Sep, [facility] [address] [id number] [place] [address]- 8764 Sep, [facility] [address] [id number] [place] [address]- 7374 Aug, [facility] [address] [id number] [place] [address]- 1090 Aug, [facility] [place] [facility] [address] [id number] [place] [address]- 1834 July, [facility] [address] [id number] [place] [address]- 7348 Jun, [facility] [place] [facility] [address] [id number] [place] [address]- 5060 Jun, [facility] [address] [id number] [place] [address]- 6361 Jun, [facility] [place] [facility] [address] [id number] [place] [address]- 6337 Apr, [facility] [address] [id number] [place] [address]- 4896 Apr, [facility] [place] [facility] [address] [id number] [place] [address]- 4623 Apr, [facility] [address] [id number] [place] [address]- 7204 Mar, [facility] [place] [facility] [address] [id number] [place] [address]- 6706 Mar, [facility] [place] [facility] [address] [id number] [place] [address]- 4383 Mar, [facility] [place] [facility] [address] [id number] [place] [address]- 4968 Mar, [facility] [place] [facility] [address] [id number] [place] [address]- 8636 Mar, [facility] [place] [facility] [address] [id number] [place] [address]- 5624 14 Feb, 2012 [facility] [place] [facility] [address] [id number] [place] [address]- 5516 14 Feb, 2012 [facility] [place] [facility] [address] [id number] [place] [address]- 0526 13 Jan, 2012 [facility] [place] [facility] [address] [id number] [place] [address]- 2486 13 Jan, 2012 [facility] [place] [facility] [address] [id number] [place] [address]- 9945 13 Jan, 2012 [facility] [place] [facility] [address] [id number] [place] [address]- 9310 13 Jan, 2012 [facility] [place] [facility] [address] [id number] [place] [address]- 0990 07 Jan, 2012 [facility] [place] [facility] [address] [id number] [place] [address]- 3542 Jan, [facility] [place] [facility] [address] [id number] [place] [address]- 3954 06 Jan, 2012 [facility] [place] [facility] [address] [id number] [place] [address]- 9203 31 Dec, 2011 [facility] [place] [facility] [address] [facility] [id number] [place] [address]- 0787 31 Dec, 2011 [facility] [place] [facility] [address] [id number] [place] [address]- 9351 30 Dec, 2011 [facility] [place] [facility] [address] [id number] [place] [address]- 2207 30 Dec, 2011 [facility] [place] [facility] [address] [id number] [place] [address]- 6336 30 Dec, 2011 [facility] [place] [facility] [address] [facility] [id number] [place] [address]- 0176 30 Dec, 2011 [facility] [place] [facility] [address] [id number] [place] [address]- 1873 Dec, [facility] [place] [facility] [address] [id number] [place] [address]- 4377 Dec, [facility] [place] [facility] [address] [id number] [place] [address]- 0549 Dec, [facility] [place] [facility] [address] [id number] [place] [address]- 3043 Dec, [facility] [place] [facility] [address] [id number] [place] [address]- 9334 Oct, [facility] [place] [facility] [address] [id number] [place] [address]- 9610 Oct, [facility] [place] [facility] [address] [id number] [place] [address]- 5735 Aug, [facility] [place] [facility] [address] [id number] [place] [address]- 2813 Aug, [facility] [place] [facility] [address] [id number] [place] [address]- 8454 July, [facility] [place] [facility] [address] [id number] [place] [address]- 4695 Jun, [facility] [place] [facility] [address] [id number] [place] [address]- 4992 Jun, [facility] [place] [facility] [address] [id number] [place] [address]- 8203 May, [facility] [place] [facility] [address] [id number] [address]- 5751 Apr, [facility] [place] [facility] [address] [id number] [place] [address]- 7265 Apr, [facility] [place] [facility] [address] [id number] [address]- 0646 Mar, [facility] [place] [facility] [address] [id number] [place] [address]- 7666 Mar, [facility] [place] [facility] [address] [id number] [place] [address]- 8578 19 Feb, 2011 [facility] [address] [id number] [place] [address]- 5236 15 Feb, 2011 [facility] [place] [facility] [address] [id number] [place] [address] 2546 13 Feb, 2011 [facility] [address] [id number] [place] [address]- 7096 13 Feb, 2011 [facility] [place] [facility] [address] [id number] [place] [address] 2547 Jan, [facility] [address] [id number] [place] [address]- 5491 17 Dec, 2010 [facility] [address] [id number] [place] [address]- 6066 08 Feb, 2010 [facility] [address] [id number] [place] [address]- 0133 02 Feb, 2010 [facility] [address] [id number] [place] [address]- 6411 Feb, [facility] [place] [facility] [address] [id number] [place] [address]- 1009 Feb, [facility] [address] [facility] [id number] [place] [address]- 2858 15 Dec, 2009 [facility] [place] [facility] [address] [id number] [place] [address]- 2943 15 Dec, 2009 [facility] [place] [facility] [address] [id number] [place] [address]- 9249 Oct, [facility] [place] [facility] [address] [id number] [place] [address]- 2322 15 Jun, 2009 [facility] [place] [facility] [address] [id number] [place] [address] 2549 Feb, [facility] [place] [facility] [address] [id number] [place] [address]- 6[address] Feb, [facility] [address] [facility] [id number] [place] [address]- [address] Feb, [facility] [address] [facility] [id number] [address] 6783 Dec, IMMUNIZATIONS No Known Immunizations SOCIAL HISTORY Never Assessed REASON FOR VISIT Lab (walk-in) PLAN OF CARE VITAL SIGNS MEDICATIONS Unknown Medications RESULTS Name Result Date Reference Range INR (IN HOUSE) 2017-05-19 INR 2.5 1.10 - 3.30 PREVIOUS INR 2.0 CURRENT COUMADIN DOSE NEW COUMADIN DOSE Lot # [id number] Exp date 01/2018 PROCEDURES Procedure Date Ordered Result Body Site PROTHROMBIN TIME May 19, 2017 INSTRUCTIONS MEDICATIONS ADMINISTERED No Known Medications MEDICAL (GENERAL) HISTORY Type Description Date Medical History obesity Medical History Hematologic disorder factor clotting problem Medical History DVT's Surgical History Lap Band 10/2012 Surgical History section 1985, 1987 Surgical History cholecystectomy Surgical History Flippin Filter 06/2009 Surgical History Left leg exploratory surgery r/t clot 1987 Surgical History left shoulder surgery 09/14/17 Hospitalization History Ruptured Ovarian Cyst with abd bleeding 11/2009
--- OUTSIDE RECORDS SUMMARY | 2018-08-02 09:04 | XMS REPORT ---
Author Author KIANA ASHLEY [facility] Address [address] [place] [address] Care Team Providers Care Orthotic Technician Name Role Phone KIANAGISLON VILLEGASHANY Unavailable PROBLEMS Type Condition ICD9-CM Code QXZ59-RU Code Onset Dates Condition Status SNOMED Code Problem Hypertriglyceridemia E78.1 Active 070917796 Problem Generalized anxiety disorder F41.1 Active 084488314 Problem correction (current) use of anticoagulants Z79.01 Active 448366736 Problem Factor V Leiden D68.51 Active 255504001 Problem History of DVT (deep vein thrombosis) Z86.718 Active 291642218 Problem Excessive daytime sleepiness G47.19 Active 759230327448 Problem Gastroesophageal reflux disease, esophagitis presence not specified K21.9 Active 294076040 Problem Pelvic pain R10.2 Active 70648396 Problem 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 Active 684632371 Problem Presence of IVC filter Z95.828 Active 638963377 Problem Peripheral edema R60.9 Active 859497142 ALLERGIES No Information ENCOUNTERS Encounter Location Date Diagnosis [place] [address] [address] July, [place] [address] 9[address]43- 7949 Jun, History of DVT (deep vein thrombosis) Z86.718 [place] [address] 91199- 1295 Jun, History of DVT (deep vein thrombosis) Z86.718 [place] [address] 65658- 0900 Jun, Impingement syndrome, shoulder, left M75.42 [place] [address] 96713- 7913 May, Subacromial bursitis of left shoulder joint M75.52 [place] [address] [place] [id number] [place] [address] 50635- 5111 May, [place] [address] [place] [id number] [place] [address] 67896- 8307 May, Hypertriglyceridemia E78.1 ; 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 and Excessive daytime sleepiness G47.19 [place] [address] [place] [id number] [place] [address] 72975- 9129 May, History of DVT (deep vein thrombosis) Z86.718 ; Generalized anxiety disorder F41.1 ; Hypertriglyceridemia E78.1 ; 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 ; Subacromial bursitis of left shoulder joint M75.52 and Excessive daytime sleepiness G47.19 [place] [address] [place] [id number] [place] [address] 53754- 5333 May, [place] [address] [place] [id number] [place] [address] 67704- 2544 May, 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 [place] [address] [place] [id number] [place] [address] 47747- 6188 Apr, correction (current) use of anticoagulants Z79.01 [place] [address] [place] [id number] [place] [address] 96561- 0848 Apr, 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 [address] [place] [address] 83485 2546 Apr, 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 [address] [place] [address] 94397 2546 Apr, correction (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 [address] [place] [address] 94601 2546 Apr, correction (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 [address] [place] [address] 41392 2546 Mar, correction (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 [address] [place] [address] 12645 2546 Mar, [facility] [address] [place] [id number] [place] [address] 21698 2546 Mar, correction (current) use of anticoagulants Z79.01 [facility] [address] [place] [address] [id number] Jan, Dental examination Z01.20 [facility] [address] [place] [address] [id number] Jan, 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 [address] [address] 2546 17 Jan, 2017 History of DVT (deep vein thrombosis) Z86.718 [place] [address] [place] [address] 30826- 1596 Jan, Generalized anxiety disorder F41.1 and Peripheral edema R60.9 [facility] [address] [place] [id number] [place] [address] 25139- 0986 Nov, History of DVT (deep vein thrombosis) Z86.718 [facility] [address] [place] [id number] [place] [address] 80724- 7068 Nov, correction (current) use of anticoagulants Z79.01 [facility] [address] [place] [address] 21405 -2713 Nov, Acute non-recurrent maxillary sinusitis J01.00 [facility] [address] [place] [id number] [place] [address] 40261- 6750 Oct, correction (current) use of anticoagulants Z79.01 [place] [address] [place] [id number] [place] [address] 25627- 8097 Oct, Personal history of venous thrombosis and embolism Z86.718 [place] [address] [place] [id number] [place] [address] 80702- 3491 Sep, [facility] [address] [place] [id number] [place] [address] 87834- 4448 Sep, Personal history of venous thrombosis and embolism Z86.718 [facility] [address] [place] [id number] [place] [address] 22079- 9365 Sep, correction (current) use of anticoagulants Z79.01 [place] [address] [place] [address] 08172- 4244 Sep, correction (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 [address] [place] [id number] [place] [address] 56753- 0894 Sep, Generalized anxiety disorder F41.1 and History of DVT (deep vein thrombosis) Z86.718 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 ; Pelvic pain R10.2 ; Hypertriglyceridemia E78.1 ; Excessive daytime sleepiness G47.19 ; Colon cancer screening Z12.11 ; Screening for breast cancer Z12.39 ; Peripheral edema R60.9 and Gastroesophageal reflux disease, esophagitis presence not specified K21.9 [place] [address] 65733- 6350 Aug, [place] [address] 85609- 1120 July, [place] [address] 29499- 2435 July, History of DVT (deep vein thrombosis) Z86.718 [place] [address] 81896- 5851 Jun, Generalized anxiety disorder F41.1 [place] [address] [place] [id number] [place] [address] 72644- 1708 Jun, History of DVT (deep vein thrombosis) Z86.718 [place] [address] [place] [id number] [place] [address] 46357- 0197 Jun, History of DVT (deep vein thrombosis) Z86.718 [place] [address] [place] [id number] [place] [address] 58685- 8443 Jun, History of DVT (deep vein thrombosis) Z86.718 [place] [address] [place] [id number] [place] [address] 71954- 8596 Jun, History of DVT (deep vein thrombosis) Z86.718 [place] [address] [place] [id number] [place] [address] 43312- 4728 May, History of DVT (deep vein thrombosis) Z86.718 [place] [address] 02645- 6018 May, 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 [address] [place] [id number] [place] [address] 00878- 3738 May, History of DVT (deep vein thrombosis) Z86.718 [facility] [address] [place] [id number] [place] [address] 41359 -8554 27 Apr, 2016 Bacterial conjunctivitis of left eye H10.9 and H/O motion sickness Z87.898 [facility] [address] [place] [id number] [place] [address] 68631- 4815 24 Apr, 2016 History of DVT (deep vein thrombosis) Z86.718 [facility] [address] [place] [id number] [place] [address] 40426- 0435 23 Apr, 2016 History of DVT (deep vein thrombosis) Z86.718 [facility] [address] [place] [id number] [place] [address] 95939- 1338 15 Apr, 2016 History of DVT (deep vein thrombosis) Z86.718 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 [address] [place] [id number] [place] [address] 90587- 2885 Mar, [facility] [address] [place] [id number] [place] [address] 05080- 2399 Mar, correction (current) use of anticoagulants Z79.01 [place] [address] [place] [id number] [place] [address] 15197- 1029 Mar, Hypertriglyceridemia E78.1 and correction (current) use of anticoagulants Z79.01 [place] [address] [place] [id number] [place] [address] 31002- 2388 Feb, correction (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 [address] [place] [address] 46762 2546 Feb, correction (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 [address] [place] [address] 44640 2546 Feb, correction (current) use of anticoagulants Z79.01 [place] [address] [place] [id number] [place] [address] 05248 2546 Dec, [place] [address] [place] [id number] [place] [address] 19547- 3126 Nov, [place] [address] [place] [id number] [place] [address] 42400- 5216 Nov, History of DVT (deep vein thrombosis) Z86.718 ; Tremulousness R25.1 ; Generalized anxiety disorder F41.1 ; Peripheral edema R60.9 and Hypertriglyceridemia E78.1 [place] [address] [place] [address] 81916- 5976 Oct, History of DVT (deep vein thrombosis) Z86.718 [place] [address] [place] [address] 25465 2546 Oct, [place] [address] [place] [address] 02922 2546 Sep, History of DVT (deep vein thrombosis) Z86.718 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 [place] [address] [place] [id number] [place] [address] 46546- 9197 July, 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 [place] [address] 28314- 9037 Jun, 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 [facility] [place] [address] 81300 -6379 Jun, Coccyx pain M53.3 ; Encounter for therapeutic drug level monitoring Z51.81 and termite treater current use 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.01 [place] [address] [place] [id number] [place] [address] 96057- 1315 May, Abnormal mammogram R92.8 [facility] [place] [address] 95252 -5088 May, [facility] [place] [address] 25293 -4011 May, Acute vaginitis N76.0 and Encounter for other screening for malignant neoplasm of breast Z12.39 [place] [address] [place] [id number] [place] [address] 86677- 6587 Apr, [place] [address] [place] [id number] [place] [address] 00300- 7870 Apr, [place] [address] [place] [id number] [place] [address] 57274- 7925 Apr, Peripheral edema R60.9 [place] [address] 41568- 8603 Apr, correction (current) use of anticoagulants Z79.01 [place] [address] [place] [id number] [place] [address] 25178- 8316 Apr, Peripheral edema R60.9 and correction (current) use of anticoagulants Z79.01 [place] [address] [place] [id number] [place] [address] 49053- 6626 Apr, correction (current) use of anticoagulants Z79.01 [place] [address] [place] [address] 20232- 2222 Apr, [place] [address] [place] [id number] [place] [address] 21361- 5058 Apr, correction (current) use of anticoagulants Z79.01 [place] [address] [place] [id number] [place] [address] 61002- 8646 Apr, Peripheral edema R60.9 [place] [address] [place] [id number] [place] [address] 83612- 3307 Mar, 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 [place] [address] [place] [id number] [place] [address] 28279- 0196 Mar, correction (current) use of anticoagulants Z79.01 and Hypertriglyceridemia E78.1 [place] [address] [place] [id number] [place] [address] 40229- 3242 Mar, correction (current) use of anticoagulants Z79.01 [place] [address] [place] [id number] [place] [address] 05854- 2636 Mar, 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 [place] [address] [place] [id number] [place] [address] 64203- 4556 Mar, [place] [address] [place] [id number] [place] [address] 43027- 2051 Mar, correction (current) use of anticoagulants Z79.01 ; Hypertriglyceridemia E78.1 ; Personal history of venous thrombosis and embolism Z86.718 and Lump R22.9 [place] [address] [place] [id number] [place] [address] 65892- 9486 Mar, Personal history of venous thrombosis and embolism Z86.718 [place] [address] [place] [id number] [place] [address] 11353- 4130 Mar, Personal history of venous thrombosis and embolism Z86.718 [facility] [address] [address]- 5883 Mar, [facility] [address] [address]- 7706 Dec, Personal history of venous thrombosis and embolism Z86.718 [facility] [address] [address]- 5086 Dec, Personal history of venous thrombosis and embolism V12.51 [facility] [address] [address] 2541 Nov, Personal history of venous thrombosis and embolism V12.51 [facility] [address] [place] [address] 31353- 0945 Nov, Personal history of venous thrombosis and embolism V12.51 [facility] [address] [place] [address] 92394- 1461 Nov, Personal history of venous thrombosis and embolism V12.51 [facility] [address] [address]- 0522 Nov, Personal history of venous thrombosis and embolism V12.51 [facility] [address] [address]- 5057 Nov, [facility] [address] [address]- 1826 Oct, Dysuria 788.1 [facility] [address] [address]- 5492 Oct, Personal history of venous thrombosis and embolism V12.51 [facility] [address] [address]- 3654 Oct, [facility] [address], [place] [address]- 7025 Oct, Personal history of venous thrombosis and embolism V12.51 [facility] [address], [place] [address]- 5843 Sep, Personal history of venous thrombosis and embolism V12.51 [facility] [address] [address]- 5280 Sep, Personal history of venous thrombosis and embolism V12.51 [facility] [address] [place] [id number] [address]- 0095 Aug, Personal history of venous thrombosis and embolism V12.51 [facility] [address] [address]- 8262 Aug, Personal history of venous thrombosis and embolism V12.51 [facility] [address]- 1845 Aug, Personal history of venous thrombosis and embolism V12.51 [facility] [address] [address]- 0793 July, Generalized anxiety disorder 300.02 ; Abdominal pain, left lower quadrant 789.04 and Personal history of venous thrombosis and embolism V12.51 [facility] [address] [address]- [address], [address] [facility] [address]- 2035 Jun, [facility] [address] [address]- 44[address] May, [facility] [address]- 57[address], [address] [facility] [address]- [address], [address] [facility] [address] [address]- 4156 [address], [address] [facility] [address] [place] [id number]- 59[address], [address] [facility] [address] [place] [address]- 7457 May, [facility] [place] [facility] [address] [id number] [place] [address]- 5388 May, [facility] [place] [facility] [address] [id number] [place] [address]- 5312 May, [facility] [place] [facility] [address] [id number] [place] [address]- 4690 Apr, [facility] [place] [facility] [address] [id number] [place] [address]- 7507 Apr, [facility] [place] [facility] [address] [id number] [place] [address]- 7901 Apr, [facility] [place] [facility] [address] [id number] [place] [address]- 9313 Apr, [facility] [place] [facility] [address] [id number] [place] [address]- 3963 Apr, [facility] [place] [facility] [address] [id number] [place] [address]- 4858 Mar, [facility] [place] [facility] [address] [id number] [place] [address]- 3938 Mar, [facility] [place] [facility] [address] [id number] [place] [address]- 9381 Mar, [facility] [place] [facility] [address] [id number] [place] [address]- 1167 Mar, [facility] [place] [facility] [address] [id number] [place] [address]- 6836 Mar, [facility] [place] [facility] [address] [id number] [place] [address]- 7675 Mar, [facility] [place] [facility] [address] [id number] [place] [address]- 7312 Feb, [facility] [place] [facility] [address] [id number] [place] [address]- 6818 Feb, [facility] [place] [facility] [address] [id number] [place] 8798 Feb, [facility] [place] [facility] [address] [id number] [place] 0547 Feb, [facility] [place] [facility] [address] [id number] [place] [address]- 4593 Feb, [facility] [place] [facility] [address] [id number] [place] [address]- 0661 Feb, [facility] [place] [facility] [address] [id number] [place] [address]- 4365 Feb, [facility] [place] [facility] [address] [id number] [place] [address]- 1963 Feb, [facility] [place] [facility] [address] [id number] [place] 3454 Feb, [facility] [place] [facility] [address] [id number] [place] [address]- 9605 Feb, [facility] [place] [facility] [address] [id number] [place] [address]- 1434 Jan, [facility] [place] [facility] [address] [id number] [place] [address]- 2890 Jan, [facility] [place] [facility] [address] [id number] [place] [address]- 8424 Jan, [facility] [place] [facility] [address] [id number] [place] [address]- 7272 Jan, [facility] [place] [facility] [address] [id number] [place] [address]- 3334 Jan, [facility] [place] [facility] [address] [id number] [place] [address]- 6681 Jan, [facility] [place] [facility] [address] [id number] [place] 6391 Jan, [facility] [place] [facility] [address] [id number] [address]- 4511 Jan, [facility] [place] [facility] [address] [id number] [place] [address]- 5117 Jan, [facility] [place] [facility] [address] [id number] [place] [address]- 5328 Jan, [facility] [place] [facility] [address] [id number] [place] [address]- 7826 Dec, [facility] [place] [facility] [address] [id number] [place] [address]- 2549 Dec, [facility] [place] [facility] [address] [id number] [place] [address] Dec, [facility] [place] [facility] [address] [id number] [place] [address] Dec, [facility] [place] [facility] [address] [id number] [place] [address] Dec, [facility] [place] [facility] [address] [id number] [place] [address] Dec, [facility] [place] [facility] [address] [id number] [place] [address] Dec, [facility] [place] [facility] [address] [id number] [place] [address] Dec, [facility] [place] [facility] [address] [id number] [address] Dec, [facility] [place] [facility] [address] [id number] [address] Dec, [facility] [place] [facility] [address] [id number] [place] [address] Dec, [facility] [place] [facility] [address] [id number], [place] [address] Dec, [facility] [place] [facility] [address] [id number] [place] [address] Dec, [facility] [place] [facility] [address] [id number] [place] [address] Dec, [facility] [place] [facility] [address] [id number] [place] [address] Dec, [facility] [place] [facility] [address] [id number] [place] [address] 30 Nov, 2013 [facility] [place] [facility] [address] [id number] [place] [address] 30 Nov, 2013 [facility] [place] [facility] [address] [id number] [place] [address]- [address] 26 Nov, 2013 [facility] [place] [facility] [address] [id number] [place] [address] 26 Nov, 2013 [facility] [place] [facility] [address] [id number] [place] [address] 24 Nov, 2013 [facility] [place] [facility] [address] [id number] [place] [address]- [address] 24 Nov, 2013 [facility] [place] [facility] [address] [id number] [place] [address]- [address] 23 Nov, 2013 [facility] [place] [facility] [address] [id number] [place] [address]- [address] 23 Nov, 2013 [facility] [place] [facility] [address] [id number] [place] [address] 18 Nov, 2013 [facility] [place] [facility] [address] [id number] [place] [address]- [address] 18 Nov, 2013 [facility] [place] [facility] [address] [id number] [place] [address] 17 Nov, 2013 [facility] [place] [facility] [address] [id number] [place] [address] 17 Nov, 2013 [facility] [place] [facility] [address] [id number] [place] [address]- [address] 11 Nov, 2013 [facility] [place] [facility] [address] [id number] [place] [address] 11 Nov, 2013 [facility] [place] [facility] [address] [id number] [place] [address] 10 Nov, 2013 [facility] [place] [facility] [address] [id number] [place] [address] 10 Nov, 2013 [facility] [place] [facility] [address] [id number] [place] [address] 08 Nov, 2013 [facility] [place] [facility] [address] [id number] [place] [address] 08 Nov, 2013 [facility] [place] [facility] [address] [id number] [place] [address] Sep, [facility] [place] [facility] [address] [id number] [place] [address] Sep, [facility] [place] [facility] [address] [id number] [place] [address] Sep, [facility] [place] [facility] [address] [id number] [place] [address] Sep, [facility] [place] [facility] [address] [id number] [place] [address] 9468 Sep, [facility] [place] [facility] [address] [id number] [place] [address] Sep, [facility] [place] [facility] [address] [id number] [place] [address]- 62[address] Aug, [facility] [place] [facility] [address] [id number] [place] [address] 1719 Aug, [facility] [place] [facility] [address] [id number] [place] [address] Aug, [facility] [place] [facility] [address] [id number] [place] [address] 9996 Aug, [facility] [place] [facility] [address] [id number] [place] [address]- 1269 Aug, [facility] [place] [facility] [address] [id number] [place] [address]- [address] Aug, [facility] [place] [facility] [address] [id number] [place] [address] 9770 Aug, [facility] [place] [facility] [address] [id number] [place] [address]- 6628 Aug, [facility] [place] [facility] [address] [id number] [place] [address]- 3[address] Aug, [facility] [place] [facility] [address] [id number] [place] [address]- 9316 Aug, [facility] [place] [facility] [address] [id number] [place] [address]- 8466 Aug, [facility] [place] [facility] [address] [id number] [place] [address]- 2619 July, [facility] [place] [facility] [address] [id number] [place] [address] 9180 July, [facility] [place] [facility] [address] [id number] [place] [address]- 8439 Jun, [facility] [place] [facility] [address] [id number] [place] [address]- 7338 Jun, [facility] [place] [facility] [address] [id number] [place] [address]- 3625 Jun, [facility] [place] [facility] [address] [id number] [place] [address]- 1404 Jun, [facility] [place] [facility] [address] [id number] [place] [address]- 8420 Jun, [facility] [place] [facility] [address] [id number] [place] [address]- 9193 Jun, [facility] [place] [facility] [address] [id number] [place] [address]- 6268 15 Jun, 2013 [facility] [place] [facility] [address] [id number] [place] [address]- 2719 Jun, [facility] [place] [facility] [address] [id number] [place] [address]- 5888 Jun, [facility] [place] [facility] [address] [id number] [place] [address]- 3356 Jun, [facility] [place] [facility] [address] [id number] [place] [address]- 1416 Jun, [facility] [place] [facility] [address] [id number] [place] [address]- 1766 Jun, [facility] [place] [facility] [address] [id number] [place] [address]- 5623 May, [facility] [place] [facility] [address] [id number] [place] [address]- 5878 May, [facility] [place] [facility] [address] [id number] [place] [address]- 8610 May, [facility] [place] [facility] [address] [id number] [place] [address]- 1558 May, [facility] [place] [facility] [address] [id number] [place] [address]- 1161 May, [facility] [place] [facility] [address] [id number] [place] [address]- 2054 May, [facility] [place] [facility] [address] [id number] [place] [address]- 5795 May, [facility] [place] [facility] [address] [id number] [place] [address]- 2142 May, [facility] [place] [facility] [address] [id number] [place] [address]- 0650 May, [facility] [place] [facility] [address] [id number] [place] [address]- 1398 May, [facility] [place] [facility] [address] [id number] [place] [address]- 2721 May, [facility] [place] [facility] [address] [id number] [place] [address]- 1895 May, [facility] [place] [facility] [address] [id number] [place] [address]- 1186 Apr, [facility] [place] [facility] [address] [facility] [id number] [place] [address]- 1596 Apr, [facility] [place] [facility] [address] [facility] [id number] [place] [address]- 4786 Apr, [facility] [place] [facility] [address] [facility] [id number] [place] [address]- 3898 Apr, [facility] [place] [facility] [address] [facility] [id number] [place] [address]- 0866 Apr, [facility] [place] [facility] [address] [facility] [id number] [place] [address]- 2476 Apr, [facility] [place] [facility] [address] [facility] [id number] [place] [address]- 0962 Apr, [facility] [place] [facility] [address] [facility] [id number] [place] [address]- 7201 Apr, [facility] [place] [facility] [address] [facility] [id number] [place] [address]- 7756 Apr, [facility] [place] [facility] [address] [facility] [id number] [place] [address]- 4787 Apr, [facility] [place] [facility] [address] [facility] [id number] [place] [address]- 7526 Apr, [facility] [place] [facility] [address] [facility] [id number] [place] [address]- 2548 Apr, [facility] [place] [facility] [address] [facility] [id number] [place] [address]- 8555 Apr, [facility] [place] [facility] [address] [facility] [id number] [place] [address]- 2543 Apr, [facility] [place] [facility] [address] [facility] [id number] [place] [address]- 1747 Apr, [facility] [place] [facility] [address] [id number] [place] [address]- 8771 Apr, [facility] [place] [facility] [address] [id number] [place] [address]- 9373 Apr, [facility] [place] [facility] [address] [facility] [id number] [place] [address]- 1813 Jan, [facility] [place] [facility] [address] [id number] [place] [address]- 1671 Jan, [facility] [place] [facility] [address] [id number] [place] [address]- 8370 Jan, [facility] [place] [facility] [address] [id number] [place] [address]- 7530 Jan, [facility] [place] [facility] [address] [facility] [id number] [place] [address]- 1776 Jan, [facility] [place] [facility] [address] [id number] [address] 9873 Jan, [facility] [place] [facility] [address] [id number] [place] [address]- 5511 Jan, [facility] [place] [facility] [address] [facility] [id number], [place] [address]- 9170 Dec, [facility] [place] [facility] [address] [id number], [place] [address]- 8204 Dec, [facility] [place] [facility] [address] [id number], [place] [address]- 3595 Dec, [facility] [place] [facility] [address] [id number], [place] [address] Nov, [facility] [place] [facility] [address] [id number], [place] [address]- 3092 10 Nov, 2012 [facility] [place] [facility] [address] [facility] [id number], [place] [address]- [address] 05 Nov, 2012 [facility] [place] [facility] [address] [id number] [place] [address]- 4966 Nov, [facility] [address] [id number] [place] [address]- 4537 Oct, [facility] [place] [facility] [address] [id number] [place] [address]- 6708 Oct, [facility] [place] [facility] [address] [id number] [place] [address]- 6416 Oct, [facility] [place] [facility] [address] [id number] [place] [address]- 4401 Oct, [facility] [place] [facility] [address] [id number] [place] [address]- 6436 Oct, [facility] [place] [facility] [address] [id number] [place] [address]- 6879 Sep, [facility] [address] [id number] [place] [address]- 5291 Sep, [facility] [place] [facility] [address] [id number] [place] [address]- 8691 Sep, [facility] [place] [facility] [address] [id number] [place] [address]- 0487 Sep, [facility] [place] [facility] [address] [id number] [place] [address]- 5882 Sep, [facility] [place] [facility] [address] [id number] [place] [address]- 7344 Sep, [facility] [place] [facility] [address] [id number] [place] [address]- 0723 Sep, [facility] [place] [facility] [address] [id number] [place] [address]- 7854 Aug, [facility] [place] [facility] [address] [id number] [place] [address]- 0783 Aug, [facility] [place] [facility] [address] [id number] [place] [address]- 3886 July, [facility] [place] [facility] [address] [id number] [place] [address]- 4942 Jun, [facility] [address] [id number] [place] [address]- 0165 Jun, [facility] [place] [facility] [address] [id number] [place] [address]- 2219 Jun, [facility] [place] [facility] [address] [id number] [place] [address]- 5914 Apr, [facility] [address] [id number] [place] [address]- 5309 Apr, [facility] [place] [facility] [address] [id number] [place] [address]- 0923 Apr, [facility] [address] [id number] [place] [address]- 7908 Mar, [facility] [address] [id number] [place] [address]- 3855 Mar, [facility] [address] [id number] [place] [address]- 5219 Mar, [facility] [address] [id number] [place] [address]- 3023 Mar, [facility] [address] [id number] [place] [address]- 9474 Mar, [facility] [place] [facility] [address] [id number] [place] [address]- 9556 14 Feb, 2012 [facility] [place] [facility] [address] [id number] [place] [address]- 1583 Feb, [facility] [place] [facility] [address] [id number] [place] [address]- 9962 Jan, [facility] [place] [facility] [address] [id number] [place] [address]- 9975 13 Jan, 2012 [facility] [place] [facility] [address] [id number] [address]- 3837 Jan, [facility] [place] [facility] [address] [id number] [place] [address]- 7114 13 Jan, 2012 [facility] [place] [facility] [address] [id number] [place] [address] Jan, [facility] [place] [facility] [address] [facility] [id number] [place] [address]- 9845 Jan, [facility] [place] [facility] [address] [id number] [place] [address]- 9372 Jan, [facility] [place] [facility] [address] [id number] [place] [address]- 5233 Dec, [facility] [place] [facility] [address] [id number] [place] [address]- 1670 Dec, [facility] [place] [facility] [address] [facility] [id number], [place] [address]- 5857 Dec, [facility] [place] [facility] [address] [id number] [place] [address]- 4038 Dec, [facility] [place] [facility] [address] [id number] [place] [address]- 7383 Dec, [facility] [place] [facility] [address] [facility] [id number] [place] [address]- 4577 Dec, [facility] [place] [facility] [address] [id number], [place] [address]- 8267 Dec, [facility] [place] [facility] [address] [facility] [id number], [place] [address]- 6852 Dec, [facility] [place] [facility] [address] [id number], [place] [address]- 1223 Dec, [facility] [place] [facility] [address] [facility] [id number] [place] [address]- 0981 Dec, [facility] [place] [facility] [address] [facility] [id number] [place] [address]- 0579 Oct, [facility] [place] [facility] [address] [id number] [place] [address]- 9002 14 Oct, 2011 [facility] [address] [id number] [place] [address]- 3774 14 Aug, 2011 [facility] [place] [facility] [address] [id number] [place] [address]- 9596 14 Aug, 2011 [facility] [place] [facility] [address] [id number] [place] [address]- 7166 July, [facility] [place] [facility] [address] [id number] [place] [address]- 9934 Jun, [facility] [place] [facility] [address] [id number] [place] [address]- 2706 Jun, [facility] [place] [facility] [address] [id number] [place] [address]- 5796 May, [facility] [place] [facility] [address] [id number] [place] [address]- 1589 Apr, [facility] [place] [facility] [address] [id number] [place] [address]- 3581 Apr, [facility] [place] [facility] [address] [id number] [place] [address]- 7426 Mar, [facility] [place] [facility] [address] [id number] [place] [address]- 5904 16 Mar, 2011 [facility] [place] [facility] [address] [id number] [place] [address]- 2651 19 Feb, 2011 [facility] [place] [facility] [address] [id number] [place] [address]- 2698 15 Feb, 2011 [facility] [place] [facility] [address] [id number] [place] [address]- 7872 13 Feb, 2011 [facility] [place] [facility] [address] [id number] [place] [address]- 1926 13 Feb, 2011 [facility] [place] [facility] [address] [id number] [place] [address]- 16[address] Jan, [facility] [address] [id number]21 Dec, [facility] [id number] [place] [address] 6576 Feb, [facility] [id number] [address] 1026 Feb, [facility] [id number] [place] [address]- 4770 Feb, [facility] [id number] [place] [address] 349970- 9408 Feb, [facility] [id number] [place] [address]- 4212 Dec, [facility] [id number], [place] [address] Dec, [facility] [id number] [place] [address]- 2907 Oct, [facility] [id number] [address]70 Jun, [facility] [id number] [address] 12[address] Feb, [facility] [id number] [address] 7632 Feb, [facility] [address] [id number], [place] [address]- 3648 Feb, [facility] [address] [id number], [place] [address]- 3784 Dec, IMMUNIZATIONS No Known Immunizations SOCIAL HISTORY Never Assessed REASON FOR VISIT Lab (walk-in) PLAN OF CARE VITAL SIGNS MEDICATIONS Unknown Medications RESULTS Name Result Date Reference Range INR (IN HOUSE) 2017-02-13 INR 2.3 1.10 - 3.30 PREVIOUS INR 2.5 CURRENT COUMADIN DOSE 5 mg qd NEW COUMADIN DOSE Lot # [id number] Exp date 07/2017 PROCEDURES Procedure Date Ordered Result Body Site PROTHROMBIN TIME Feb 13, 2017 INSTRUCTIONS MEDICATIONS ADMINISTERED No Known Medications MEDICAL (GENERAL) HISTORY Type Description Date Medical History obesity Medical History Hematologic disorder factor clotting problem Medical History DVT's Surgical History Lap Band 10/2012 Surgical History section 1985, 1987 Surgical History cholecystectomy Surgical History [employer] Filter 06/2009 Surgical History Left leg exploratory surgery r/t clot 1987 Hospitalization History Ruptured Ovarian Cyst with abd bleeding 11/2009
--- OUTSIDE RECORDS SUMMARY | 2018-08-02 09:04 | XMS REPORT ---
Author Author KIANA ASHLEY [facility] Address [address] [place] [address] Care Team Providers Care Glue Drier Operator Name Role Phone KIANAGILSON VILLEGASHANY Unavailable PROBLEMS Type Condition ICD9-CM Code [id number] Code Onset Dates Condition Status SNOMED Code Problem Hypertriglyceridemia E78.1 Active 324342831 Problem Generalized anxiety disorder F41.1 Active 179560609 Problem senior living (current) use of anticoagulants Z79.01 Active 944385734 Problem Factor V Leiden D68.51 Active 136960332 Problem History of DVT (deep vein thrombosis) Z86.718 Active 734602413 Problem Excessive daytime sleepiness G47.19 Active 995764263133 Problem Gastroesophageal reflux disease, esophagitis presence not specified K21.9 Active 506843328 Problem Pelvic pain R10.2 Active 60401420 Problem 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 Active 937141496 Problem Presence of IVC filter Z95.828 Active 076702416 Problem Peripheral edema R60.9 Active 729569250 ALLERGIES No Information ENCOUNTERS Encounter Location Date Diagnosis [place] [address] [address] July, [place] [address] 9[address]62- 4377 Jun, History of DVT (deep vein thrombosis) Z86.718 [place] [address] 76026- 1177 Jun, History of DVT (deep vein thrombosis) Z86.718 [place] [address] 92665- 9015 Jun, Impingement syndrome, shoulder, left M75.42 [place] [address] 17195- 4438 May, Subacromial bursitis of left shoulder joint M75.52 [place] [address] [place] [id number] [place] [address] 92688- 9073 May, [place] [address] [place] [id number] [place] [address] 39724- 2730 May, Hypertriglyceridemia E78.1 ; 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 and Excessive daytime sleepiness G47.19 [place] [address] [place] [id number] [place] [address] 53496- 1989 May, History of DVT (deep vein thrombosis) Z86.718 ; Generalized anxiety disorder F41.1 ; Hypertriglyceridemia E78.1 ; 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 ; Subacromial bursitis of left shoulder joint M75.52 and Excessive daytime sleepiness G47.19 [place] [address] [place] [id number] [place] [address] 78763- 4531 May, [place] [address] [place] [id number] [place] [address] 07129- 2549 May, 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 [place] [address] [place] [id number] [place] [address] 95007- 5750 Apr, senior living (current) use of anticoagulants Z79.01 [place] [address] [place] [id number] [place] [address] 94085- 8105 Apr, 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 [place] [address] [place] [id number] [place] [address] 13098- 0719 Apr, 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 [place] [address] [place] [id number] [place] [address] 35815- 1096 Apr, [place] [address] [place] [id number] [place] [address] 50321- 5515 Apr, 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 [place] [address] [address]- 9366 13 Apr, 2017 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 [facility] [address] [place] [address] 49563 2546 Apr, 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 [facility] [address] [place] [address] 77216 2546 Apr, senior living (current) use of anticoagulants Z79.01 [facility] [address] [place] [address] 30579 2546 Apr, 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 [facility] [address] [place] [address] 61893 2546 Apr, senior living (current) use of anticoagulants Z79.01 [facility] [address] [place] [address] 06501 2546 Mar, senior living (current) use of anticoagulants Z79.01 [facility] [address] [place] [address] 20610 2546 Mar, [facility] [address] [place] [id number] [place] [address] 66923 2546 Mar, senior living (current) use of anticoagulants Z79.01 [facility] [address] [place] [address] [phone] Jan, Dental examination Z01.20 [facility] [address] [place] [address] [id number] Jan, [facility] [address] [place] [id number] [place] [address] 74074 2546 Jan, 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 [facility] [address] [address] 2546 17 Jan, 2017 History of DVT (deep vein thrombosis) Z86.718 [place] [address] [place] [address] 70368- 5342 Jan, Generalized anxiety disorder F41.1 and Peripheral edema R60.9 [facility] [address] [place] [id number] [place] [address] 59275- 4882 Nov, History of DVT (deep vein thrombosis) Z86.718 [facility] [address] [place] [id number] [place] [address] 61338- 1466 Nov, senior living (current) use of anticoagulants Z79.01 [facility] [address] [place] [address] 14141 -1711 Nov, Acute non-recurrent maxillary sinusitis J01.00 [facility] [address] [place] [id number] [place] [address] 43581- 2735 Oct, senior living (current) use of anticoagulants Z79.01 [place] [address] [place] [id number] [place] [address] 12520- 6086 Oct, Personal history of venous thrombosis and embolism Z86.718 [place] [address] [place] [id number] [place] [address] 03438- 4659 Sep, [facility] [address] [place] [id number] [place] [address] 85142- 1677 Sep, Personal history of venous thrombosis and embolism Z86.718 [facility] [address] [place] [id number] [place] [address] 26703- 2838 Sep, senior living (current) use of anticoagulants Z79.01 [place] [address] [place] [address] 44658- 8394 Sep, senior living (current) use of anticoagulants Z79.01 [facility] [address] [place] [id number] [place] [address] 19730- 1275 Sep, Generalized anxiety disorder F41.1 and History of DVT (deep vein thrombosis) Z86.718 [facility] [address] [place] [id number] [place] [address] 65684- 6867 Aug, History of DVT (deep vein thrombosis) Z86.718 ; Generalized anxiety disorder F41.1 ; 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 ; Pelvic pain R10.2 ; Hypertriglyceridemia E78.1 ; Excessive daytime sleepiness G47.19 ; Colon cancer screening Z12.11 ; Screening for breast cancer Z12.39 ; Peripheral edema R60.9 and Gastroesophageal reflux disease, esophagitis presence not specified K21.9 [place] [address] 05746- 1798 Aug, [place] [address] 25466- 7153 July, [place] [address] 60703- 7397 July, History of DVT (deep vein thrombosis) Z86.718 [place] [address] 82931- 7901 Jun, Generalized anxiety disorder F41.1 [place] [address] [place] [id number] [place] [address] 23320- 5172 Jun, History of DVT (deep vein thrombosis) Z86.718 [place] [address] [place] [id number] [place] [address] 72495- 1319 Jun, History of DVT (deep vein thrombosis) Z86.718 [place] [address] [place] [id number] [place] [address] 81420- 9854 Jun, History of DVT (deep vein thrombosis) Z86.718 [place] [address] [place] [id number] [place] [address] 14703- 9867 Jun, History of DVT (deep vein thrombosis) Z86.718 [place] [address] [place] [id number] [place] [address] 01254- 4461 May, History of DVT (deep vein thrombosis) Z86.718 [place] [address] 06502- 1019 May, 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 [facility] [address] [place] [id number] [place] [address] 29980- 9634 May, 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 [facility] [address] [place] [id number] [place] [address] 35194- 0409 May, History of DVT (deep vein thrombosis) Z86.718 [facility] [address] [place] [id number] [place] [address] 85336 -1590 27 Apr, 2016 Bacterial conjunctivitis of left eye H10.9 and H/O motion sickness Z87.898 [facility] [address] [place] [id number] [place] [address] 04306- 4857 24 Apr, 2016 History of DVT (deep vein thrombosis) Z86.718 [facility] [address] [place] [id number] [place] [address] 14199- 7335 23 Apr, 2016 History of DVT (deep vein thrombosis) Z86.718 [facility] [address] [place] [id number] [place] [address] 73457- 1594 15 Apr, 2016 History of DVT (deep vein thrombosis) Z86.718 [facility] [address] [place] [id number] [place] [address] 54211- 6037 14 Apr, 2016 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 [facility] [address] [place] [id number] [place] [address] 53541- 4264 Mar, [facility] [address] [place] [id number] [place] [address] 15578- 2399 Mar, senior living (current) use of anticoagulants Z79.01 [place] [address] [place] [id number] [place] [address] 34283- 2684 Mar, Hypertriglyceridemia E78.1 and senior living (current) use of anticoagulants Z79.01 [place] [address] [place] [id number] [place] [address] 12765- 8392 Feb, senior living (current) use of anticoagulants Z79.01 [facility] [address] [place] [address] 28019 2546 Feb, senior living (current) use of anticoagulants Z79.01 [facility] [address] [place] [address] 42006 2546 Feb, senior living (current) use of anticoagulants Z79.01 [place] [address] [place] [id number] [place] [address] 80345 2546 Dec, [place] [address] [place] [id number] [place] [address] 85995- 9266 Nov, [place] [address] [place] [id number] [place] [address] 36247- 8516 Nov, History of DVT (deep vein thrombosis) Z86.718 ; Tremulousness R25.1 ; Generalized anxiety disorder F41.1 ; Peripheral edema R60.9 and Hypertriglyceridemia E78.1 [place] [address] [place] [address] 76460- 1846 Oct, History of DVT (deep vein thrombosis) Z86.718 [place] [address] [place] [address] 15370 2546 Oct, [place] [address] [place] [address] 93756 2546 Sep, History of DVT (deep vein thrombosis) Z86.718 [facility] [address] [address] 2546 Sep, senior living (current) use of anticoagulants Z79.01 [place] [address] [place] [address] 40464 2546 July, [place] [address] [address]- 2546 July, 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 [place] [address] [place] [id number] [place] [address] 65539- 3578 July, 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 [place] [address] 75718- 9727 Jun, 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 [facility] [place] [address] 20139 -4726 Jun, Coccyx pain M53.3 ; Encounter for therapeutic drug level monitoring Z51.81 and 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 current use 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.01 [place] [address] [place] [id number] [place] [address] 57598- 7135 May, Abnormal mammogram R92.8 [facility] [place] [address] 41886 -2279 May, [facility] [place] [address] 78785 -7290 May, Acute vaginitis N76.0 and Encounter for other screening for malignant neoplasm of breast Z12.39 [place] [address] [place] [id number] [place] [address] 24262- 2879 Apr, [place] [address] [place] [id number] [place] [address] 44566- 5990 Apr, [place] [address] [place] [id number] [place] [address] 85298- 3380 Apr, Peripheral edema R60.9 [place] [address] 70738- 0281 Apr, senior living (current) use of anticoagulants Z79.01 [place] [address] [place] [id number] [place] [address] 57912- 2399 Apr, Peripheral edema R60.9 and senior living (current) use of anticoagulants Z79.01 [place] [address] [place] [id number] [place] [address] 18247- 0489 Apr, senior living (current) use of anticoagulants Z79.01 [place] [address] [place] [address] 41781- 8812 Apr, [place] [address] [place] [id number] [place] [address] 68945- 1943 Apr, senior living (current) use of anticoagulants Z79.01 [place] [address] [place] [id number] [place] [address] 04581- 5846 Apr, Peripheral edema R60.9 [place] [address] [place] [id number] [place] [address] 83619- 2011 Mar, 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 [place] [address] [place] [id number] [place] [address] 92484- 0142 Mar, senior living (current) use of anticoagulants Z79.01 and Hypertriglyceridemia E78.1 [place] [address] [place] [id number] [place] [address] 42622- 1889 Mar, senior living (current) use of anticoagulants Z79.01 [place] [address] [place] [id number] [place] [address] 43710- 1987 Mar, 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 [place] [address] [place] [id number] [place] [address] 86552- 5735 Mar, [place] [address] [place] [id number] [place] [address] 03347- 5573 Mar, senior living (current) use of anticoagulants Z79.01 ; Hypertriglyceridemia E78.1 ; Personal history of venous thrombosis and embolism Z86.718 and Lump R22.9 [place] [address] [place] [id number] [place] [address] 95177- 9856 Mar, Personal history of venous thrombosis and embolism Z86.718 [place] [address] [place] [id number] [place] [address] 55146- 4951 Mar, Personal history of venous thrombosis and embolism Z86.718 [facility] [address] [address]- 8737 Mar, [facility] [address] [address]- 1346 Dec, Personal history of venous thrombosis and embolism Z86.718 [facility] [address], [place] [address]- 9706 Dec, Personal history of venous thrombosis and embolism V12.51 [facility] [address] [address] 2540 Nov, Personal history of venous thrombosis and embolism V12.51 [facility] [address] [place] [address] 81649- 0691 Nov, Personal history of venous thrombosis and embolism V12.51 [facility] [address] [place] [address] 65916- 8364 Nov, Personal history of venous thrombosis and embolism V12.51 [facility] [address] [address]- 7682 Nov, Personal history of venous thrombosis and embolism V12.51 [facility] [address] [address]- 7176 Nov, [facility] [address], [place] [address]- 8716 Oct, Dysuria 788.1 [facility] [address] [address]- 2685 Oct, Personal history of venous thrombosis and embolism V12.51 [facility] [address] [address]- 7427 Oct, [facility] [address] [address]- 7923 Oct, Personal history of venous thrombosis and embolism V12.51 [facility] [address], [place] [address]- 9474 Sep, Personal history of venous thrombosis and embolism V12.51 [facility] [address] [address]- 2971 Sep, Personal history of venous thrombosis and embolism V12.51 [facility] [address] [place] [id number] [address]- 3675 Aug, Personal history of venous thrombosis and embolism V12.51 [facility] [address] [address]- 6656 Aug, Personal history of venous thrombosis and embolism V12.51 [facility] [address]- 6868 Aug, Personal history of venous thrombosis and embolism V12.51 [facility] [address] [address]- 4518 July, Generalized anxiety disorder 300.02 ; Abdominal pain, left lower quadrant 789.04 and Personal history of venous thrombosis and embolism V12.51 [facility] [address] [address]- 9496 14 Jun, 2014 [facility] [address]- 3219 Jun, [facility] [address] [address]- 6327 May, [facility] [address]- 1096 27 May, 2014 [facility] [address]- 3743 17 May, 2014 [facility] [address] [address]- 4596 17 May, 2014 [facility] [address] [place] [id number] 1175 13 May, 2014 [facility] [address] [address]- 9893 May, [facility] [place] [facility] [address] [id number] [place] [address]- 3546 May, [facility] [place] [facility] [address] [id number] [place] [address]- 0954 May, [facility] [place] [facility] [address] [id number] [place] [address]- 5066 Apr, [facility] [place] [facility] [address] [id number] [place] [address]- 8385 Apr, [facility] [place] [facility] [address] [id number] [place] [address]- 3656 Apr, [facility] [place] [facility] [address] [id number] [place] [address]- 1153 Apr, [facility] [place] [facility] [address] [id number] [place] [address]- 6263 Apr, [facility] [place] [facility] [address] [id number] [place] [address]- 3387 Mar, [facility] [place] [facility] [address] [id number] [place] [address]- 8308 Mar, [facility] [place] [facility] [address] [id number] [place] [address]- 5186 Mar, [facility] [place] [facility] [address] [id number] [place] [address]- 3025 Mar, [facility] [place] [facility] [address] [id number] [place] [address]- 0274 Mar, [facility] [place] [facility] [address] [id number] [place] [address]- 0847 Mar, [facility] [place] [facility] [address] [id number] [place] [address]- 5889 Feb, [facility] [place] [facility] [address] [id number] [place] [address]- 4908 Feb, [facility] [place] [facility] [address] [id number] [place] 5306 Feb, [facility] [place] [facility] [address] [id number] [place] 4498 Feb, [facility] [place] [facility] [address] [id number] [place] [address]- 5492 Feb, [facility] [place] [facility] [address] [id number] [place] [address]- 2632 Feb, [facility] [place] [facility] [address] [id number] [place] [address]- 3659 Feb, [facility] [place] [facility] [address] [id number] [place] [address]- 1571 Feb, [facility] [place] [facility] [address] [id number] [place] 5683 Feb, [facility] [place] [facility] [address] [id number] [place] [address]- 3368 Feb, [facility] [place] [facility] [address] [id number] [place] [address]- 8689 Jan, [facility] [place] [facility] [address] [id number] [place] [address]- 9593 Jan, [facility] [place] [facility] [address] [id number] [place] [address]- 5432 Jan, [facility] [place] [facility] [address] [id number] [place] [address]- 0774 Jan, [facility] [place] [facility] [address] [id number] [place] [address]- 9946 Jan, [facility] [place] [facility] [address] [id number] [place] [address]- 5030 Jan, [facility] [place] [facility] [address] [id number] [place] 4361 Jan, [facility] [place] [facility] [address] [id number] [address]- 4097 Jan, [facility] [place] [facility] [address] [id number] [place] [address]- 5363 Jan, [facility] [place] [facility] [address] [id number] [place] [address]- 9090 Jan, [facility] [place] [facility] [address] [id number] [place] [address]- 9042 Dec, [facility] [place] [facility] [address] [id number] [place] [address]- 1994 Dec, [facility] [place] [facility] [address] [id number] [place] [address]- 6972 Dec, [facility] [place] [facility] [address] [id number] [place] [address]- 3545 Dec, [facility] [place] [facility] [address] [id number] [place] [address]- 2135 Dec, [facility] [place] [facility] [address] [id number] [place] [address]- 2998 Dec, [facility] [place] [facility] [address] [id number] [place] [address]- 3105 Dec, [facility] [place] [facility] [address] [id number] [place] [address]- 2487 Dec, [facility] [place] [facility] [address] [id number] [address]- [address] Dec, [facility] [place] [facility] [address] [id number], [place] [address] Dec, [facility] [place] [facility] [address] [id number] [place] [address] Dec, [facility] [place] [facility] [address] [id number], [place] [address] Dec, [facility] [place] [facility] [address] [id number] [place] [address] Dec, [facility] [place] [facility] [address] [id number] [place] [address] Dec, [facility] [place] [facility] [address] [id number] [place] [address] Dec, [facility] [place] [facility] [address] [id number] [place] [address] 30 Nov, 2013 [facility] [place] [facility] [address] [id number] [place] [address] 30 Nov, 2013 [facility] [place] [facility] [address] [id number] [place] [address] 26 Nov, 2013 [facility] [place] [facility] [address] [id number] [place] [address] 26 Nov, 2013 [facility] [place] [facility] [address] [id number] [place] [address] 24 Nov, 2013 [facility] [place] [facility] [address] [id number] [place] [address] 24 Nov, 2013 [facility] [place] [facility] [address] [id number] [place] [address] 23 Nov, 2013 [facility] [place] [facility] [address] [id number] [place] [address]- [address] 23 Nov, 2013 [facility] [place] [facility] [address] [id number] [place] [address]- [address] 18 Nov, 2013 [facility] [place] [facility] [address] [id number] [place] [address] 18 Nov, 2013 [facility] [place] [facility] [address] [id number] [place] [address] 17 Nov, 2013 [facility] [place] [facility] [address] [id number] [place] [address] 17 Nov, 2013 [facility] [place] [facility] [address] [id number] [place] [address]- [address] 11 Nov, 2013 [facility] [place] [facility] [address] [id number] [place] [address] 11 Nov, 2013 [facility] [place] [facility] [address] [id number] [place] [address] 10 Nov, 2013 [facility] [place] [facility] [address] [id number] [place] [address] 10 Nov, 2013 [facility] [place] [facility] [address] [id number] [place] [address] 08 Nov, 2013 [facility] [place] [facility] [address] [id number] [place] [address] 08 Nov, 2013 [facility] [place] [facility] [address] [id number] [place] [address] Sep, [facility] [place] [facility] [address] [id number] [place] [address] 2467 Sep, [facility] [place] [facility] [address] [id number] [place] [address] 4[address] Sep, [facility] [place] [facility] [address] [id number] [place] [address]- 2484 Sep, [facility] [place] [facility] [address] [id number] [place] [address] 8279 Sep, [facility] [place] [facility] [address] [id number] [place] [address]- 1171 Sep, [facility] [place] [facility] [address] [id number] [place] [address]- 4821 Aug, [facility] [place] [facility] [address] [id number] [place] [address] Aug, [facility] [place] [facility] [address] [id number] [place] [address]- 5255 Aug, [facility] [place] [facility] [address] [id number] [place] [address]- 6084 Aug, [facility] [place] [facility] [address] [id number] [place] [address]- 5618 Aug, [facility] [place] [facility] [address] [id number] [place] [address]- 1668 Aug, [facility] [place] [facility] [address] [id number] [place] [address]- 3217 Aug, [facility] [place] [facility] [address] [id number] [place] [address]- 1229 Aug, [facility] [place] [facility] [address] [id number] [place] [address]- 3011 Aug, [facility] [place] [facility] [address] [id number] [place] [address]- 6408 Aug, [facility] [place] [facility] [address] [id number] [place] [address]- 9104 Aug, [facility] [place] [facility] [address] [id number] [place] [address]- 8347 July, [facility] [place] [facility] [address] [id number] [place] [address]- 8656 July, [facility] [place] [facility] [address] [id number] [place] [address]- 6034 Jun, [facility] [place] [facility] [address] [id number] [place] [address]- 7679 Jun, [facility] [place] [facility] [address] [id number] [place] [address]- 2179 Jun, [facility] [place] [facility] [address] [id number] [place] [address]- 5323 Jun, [facility] [place] [facility] [address] [id number] [place] [address]- 3608 Jun, [facility] [place] [facility] [address] [id number] [place] [address]- 0124 Jun, [facility] [place] [facility] [address] [id number] [place] [address]- 7253 15 Jun, 2013 [facility] [place] [facility] [address] [id number] [place] [address]- 2097 Jun, [facility] [place] [facility] [address] [id number] [place] [address]- 6690 Jun, [facility] [place] [facility] [address] [id number] [place] [address]- 8836 Jun, [facility] [place] [facility] [address] [id number] [place] [address]- 0486 Jun, [facility] [place] [facility] [address] [id number] [place] [address]- 3636 Jun, [facility] [place] [facility] [address] [id number] [place] [address]- 5626 May, [facility] [place] [facility] [address] [id number] [place] [address]- 9769 May, [facility] [place] [facility] [address] [id number] [place] [address]- 2380 May, [facility] [place] [facility] [address] [id number] [place] [address]- 8847 May, [facility] [place] [facility] [address] [id number] [place] [address]- 3234 May, [facility] [place] [facility] [address] [id number] [place] [address]- 0020 May, [facility] [place] [facility] [address] [id number] [place] [address]- 0612 May, [facility] [place] [facility] [address] [id number] [place] [address]- 2601 May, [facility] [place] [facility] [address] [id number] [place] [address]- 7683 May, [facility] [place] [facility] [address] [id number] [place] [address]- 7258 May, [facility] [place] [facility] [address] [id number] [place] [address]- 5962 May, [facility] [place] [facility] [address] [id number] [place] [address]- 3606 May, [facility] [place] [facility] [address] [id number] [place] [address]- 2706 Apr, [facility] [place] [facility] [address] [facility] [id number] [place] [address]- 2216 Apr, [facility] [place] [facility] [address] [facility] [id number] [place] [address]- 3616 Apr, [facility] [place] [facility] [address] [facility] [id number] [place] [address]- 5510 Apr, [facility] [place] [facility] [address] [facility] [id number] [place] [address]- 0566 Apr, [facility] [place] [facility] [address] [facility] [id number] [place] [address]- 3986 Apr, [facility] [place] [facility] [address] [facility] [id number] [place] [address]- 8602 Apr, [facility] [place] [facility] [address] [facility] [id number] [place] [address]- 6016 Apr, [facility] [place] [facility] [address] [facility] [id number] [place] [address]- 1991 Apr, [facility] [place] [facility] [address] [facility] [id number] [place] [address]- 0938 Apr, [facility] [place] [facility] [address] [facility] [id number] [place] [address]- 9476 Apr, [facility] [place] [facility] [address] [facility] [id number] [place] [address]- 2547 Apr, [facility] [place] [facility] [address] [facility] [id number] [place] [address]- 9578 Apr, [facility] [place] [facility] [address] [facility] [id number] [place] [address]- 2549 Apr, [facility] [place] [facility] [address] [facility] [id number] [place] [address]- 2802 Apr, [facility] [place] [facility] [address] [id number] [place] [address]- 5114 Apr, [facility] [place] [facility] [address] [id number] [place] [address]- 9466 Apr, [facility] [place] [facility] [address] [facility] [id number] [place] [address]- 7384 Jan, [facility] [place] [facility] [address] [id number] [place] [address]- 9555 Jan, [facility] [place] [facility] [address] [id number] [place] [address]- 6458 Jan, [facility] [place] [facility] [address] [id number] [place] [address]- 7632 Jan, [facility] [place] [facility] [address] [facility] [id number] [place] [address]- 8937 Jan, [facility] [place] [facility] [address] [id number], [place] [address] 3369 Jan, [facility] [place] [facility] [address] [id number] [place] [address]- 7384 Jan, [facility] [place] [facility] [address] [facility] [id number], [place] [address]- 1136 Dec, [facility] [place] [facility] [address] [id number], [place] [address] 8643 Dec, [facility] [place] [facility] [address] [id number], [place] [address]- 4543 Dec, [facility] [place] [facility] [address] [id number], [place] [address]- 8282 Nov, [facility] [place] [facility] [address] [id number], [place] [address]- 8642 10 Nov, 2012 [facility] [place] [facility] [address] [facility] [id number], [place] [address]- 8356 05 Nov, 2012 [facility] [place] [facility] [address] [id number] [place] [address]- 0330 Nov, [facility] [address] [id number] [place] [address]- 0437 Oct, [facility] [place] [facility] [address] [id number] [place] [address]- 4703 Oct, [facility] [place] [facility] [address] [id number] [place] [address]- 2198 Oct, [facility] [place] [facility] [address] [id number] [place] [address]- 7123 Oct, [facility] [place] [facility] [address] [id number] [place] [address]- 1810 Oct, [facility] [place] [facility] [address] [id number] [place] [address]- 8805 Sep, [facility] [address] [id number] [place] [address]- 4455 Sep, [facility] [place] [facility] [address] [id number] [place] [address]- 7671 Sep, [facility] [place] [facility] [address] [id number] [place] [address]- 3211 Sep, [facility] [place] [facility] [address] [id number] [place] [address]- 1173 Sep, [facility] [place] [facility] [address] [id number] [place] [address]- 7831 Sep, [facility] [place] [facility] [address] [id number] [place] [address]- 3027 Sep, [facility] [place] [facility] [address] [id number] [place] [address]- 8540 Aug, [facility] [place] [facility] [address] [id number] [place] [address]- 8416 Aug, [facility] [place] [facility] [address] [id number] [place] [address]- 4144 July, [facility] [place] [facility] [address] [id number] [place] [address]- 9393 Jun, [facility] [address] [id number] [place] [address]- 8574 Jun, [facility] [place] [facility] [address] [id number] [place] [address]- 5956 Jun, [facility] [place] [facility] [address] [id number] [place] [address]- 3221 Apr, [facility] [address] [id number] [place] [address]- 7690 Apr, [facility] [place] [facility] [address] [id number] [place] [address]- 6092 Apr, [facility] [address] [id number] [place] [address]- 6911 Mar, [facility] [address] [id number] [place] [address]- 3809 Mar, [facility] [address] [id number] [place] [address]- 5729 Mar, [facility] [address] [id number] [place] [address]- 2091 Mar, [facility] [address] [id number] [place] [address]- 7076 Mar, [facility] [place] [facility] [address] [id number] [place] [address]- 9369 14 Feb, 2012 [facility] [place] [facility] [address] [id number] [place] [address]- 8752 Feb, [facility] [place] [facility] [address] [id number] [place] [address]- 6157 Jan, [facility] [place] [facility] [address] [id number] [place] [address]- 4242 13 Jan, 2012 [facility] [place] [facility] [address] [id number], [place] [address]- 2175 Jan, [facility] [place] [facility] [address] [id number] [place] [address]- 4897 13 Jan, 2012 [facility] [place] [facility] [address] [id number] [place] [address]88 Jan, [facility] [place] [facility] [address] [facility] [id number] [place] [address]- 5910 Jan, [facility] [place] [facility] [address] [id number] [place] [address]- 3481 Jan, [facility] [place] [facility] [address] [id number] [place] [address]- 7289 Dec, [facility] [place] [facility] [address] [id number] [place] [address]- 4792 Dec, [facility] [place] [facility] [address] [facility] [id number], [place] [address]- 1703 Dec, [facility] [place] [facility] [address] [id number] [place] [address]- 5791 Dec, [facility] [place] [facility] [address] [id number] [place] [address]- 1960 Dec, [facility] [place] [facility] [address] [facility] [id number] [place] [address]- 3277 Dec, [facility] [place] [facility] [address] [id number], [place] [address]- 0092 Dec, [facility] [place] [facility] [address] [facility] [id number], [place] [address]- 6870 Dec, [facility] [place] [facility] [address] [id number], [place] [address]- 7017 Dec, [facility] [place] [facility] [address] [facility] [id number] [place] [address]- 5177 Dec, [facility] [place] [facility] [address] [facility] [id number] [place] [address]- 2787 Oct, [facility] [place] [facility] [address] [id number] [place] [address]- 4156 14 Oct, 2011 [facility] [address] [id number] [place] [address]- 4408 14 Aug, 2011 [facility] [place] [facility] [address] [id number] [place] [address]- 9716 14 Aug, 2011 [facility] [place] [facility] [address] [id number] [place] [address]- 5616 July, [facility] [place] [facility] [address] [id number] [place] [address]- 4232 Jun, [facility] [place] [facility] [address] [id number] [place] [address]- 3006 Jun, [facility] [place] [facility] [address] [id number] [place] [address]- 5976 May, [facility] [place] [facility] [address] [id number] [place] [address]- 6945 Apr, [facility] [place] [facility] [address] [id number] [place] [address]- 0523 Apr, [facility] [place] [facility] [address] [id number] [place] [address]- 6236 Mar, [facility] [place] [facility] [address] [id number] [place] [address]- 9319 16 Mar, 2011 [facility] [place] [facility] [address] [id number] [place] [address]- 6594 19 Feb, [address] [facility] [place] [facility] [address] [id number] [place] [address]- 9452 15 Feb, 2011 [facility] [place] [facility] [address] [id number] [place] [address]- 6264 13 Feb, [address] [facility] [place] [facility] [address] [id number] [place] [address]- 0776 13 Feb, 2011 [facility] [place] [facility] [address] [id number] [place] [address]- 8683 Jan, [facility] [address] [id number], [place] [address]- 4473 Dec, [facility] [address], [place] [address]- 5326 Feb, [facility] [address] 5095 Feb, [facility] [id number] [place] [address]58- 0468 Feb, [facility] [address], [place] [address]- 1428 Feb, [facility] [id number] [place] [address]- 6924 Dec, [facility] [address], [place] [address]- 2367 Dec, [facility] [address], [place] [address]- 9638 Oct, [facility] [address], [place] [address]- 6909 Jun, [facility] [address], [place] [address]- 7067 Feb, [facility] [address], [place] [address]- 3103 Feb, [facility] [address], [place] [address]- 9970 Feb, [facility] [address] [id number], [place] [address]- 7529 Dec, IMMUNIZATIONS No Known Immunizations SOCIAL HISTORY Never Assessed REASON FOR VISIT Deferred Lab order PLAN OF CARE VITAL SIGNS MEDICATIONS Unknown Medications RESULTS No Results PROCEDURES No Known procedures INSTRUCTIONS MEDICATIONS ADMINISTERED No Known Medications MEDICAL (GENERAL) HISTORY Type Description Date Medical History obesity Medical History Hematologic disorder factor clotting problem Medical History DVT's Surgical History Lap Band 10/2012 Surgical History section 1985, 1987 Surgical History cholecystectomy Surgical History [place] Filter 06/2009 Surgical History Left leg exploratory surgery r/t clot 1987 Hospitalization History Ruptured Ovarian Cyst with abd bleeding 11/2009
--- OUTSIDE RECORDS SUMMARY | 2018-08-02 09:05 | XMS REPORT ---
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 Active 950771447 Problem Factor V Leiden D68.51 Active 892400706 Problem History of DVT (deep vein thrombosis) Z86.718 Active 467887468 Problem Excessive daytime sleepiness G47.19 Active 136172875906 Problem Gastroesophageal reflux disease, esophagitis presence not specified K21.9 Active 201100527 Problem Pelvic pain R10.2 Active 99192932 Problem 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 Active 466068079 Problem Presence of IVC filter Z95.828 Active 829882699 Problem Peripheral edema R60.9 Active 841454772 ALLERGIES No Information SOCIAL HISTORY Never Assessed PLAN OF CARE VITAL SIGNS MEDICATIONS Unknown Medications RESULTS No Results PROCEDURES Procedure Date Ordered Result Body Site PROTHROMBIN TIME May 22, 2016 IMMUNIZATIONS No Known Immunizations MEDICAL (GENERAL) HISTORY Type Description Date Medical History obesity Medical History Hematologic disorder factor clotting problem Medical History DVT's Surgical History Lap Band 10/2012 Surgical History section 1985, 1987 Surgical History cholecystectomy Surgical History [place] Filter 06/2009 Surgical History Left leg exploratory surgery r/t clot 1987 Hospitalization History Ruptured Ovarian Cyst with abd bleeding 11/2009
--- OUTSIDE RECORDS SUMMARY | 2018-08-02 09:05 | XMS REPORT ---
Author Author KIANA ASHLEY [facility] Address [address] [place] [address] Care Team Providers Care Lumber Carrier Name Role Phone ELMO BRUNOY Unavailable PROBLEMS Type Condition ICD9-CM Code PCV84-VX Code Onset Dates Condition Status SNOMED Code Problem Generalized anxiety disorder F41.1 Active 563564950 Problem 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 Active 591486087 Problem History of DVT (deep vein thrombosis) Z86.718 Active 531437969 Problem Factor V Leiden D68.51 Active 003617488 Problem Hypertriglyceridemia E78.1 Active 626162246 Problem FPC (current) use of anticoagulants Z79.01 Active 607107949 Problem Thyroid nodule E04.1 Active 306383102 Problem Excessive daytime sleepiness G47.19 Active 709041638967 Problem Peripheral edema R60.9 Active 573193328 Problem Pelvic pain R10.2 Active 16974662 Problem Gastroesophageal reflux disease, esophagitis presence not specified K21.9 Active 588173028 Problem Presence of IVC filter Z95.828 Active 336522623 ALLERGIES No Information ENCOUNTERS Encounter Location Date Diagnosis [place] [address] [address] Aug, [facility] [id number] [place] [address] 36761- 2891 Aug, [facility] [id number] [place] [address] 17791- 1786 Aug, Acute pain of left shoulder M25.512 and Thyroid nodule E04.1 [facility] [address] [place] [address] 45043- 4582 July, Superior glenoid labrum lesion of left shoulder, subsequent encounter S43.432D [place] [id number] [place] [address] 02195- 0217 Jun, History of DVT (deep vein thrombosis) Z86.718 [facility] [id number] [place] [address] 97693- 9917 Jun, History of DVT (deep vein thrombosis) Z86.718 [place] [id number] [place] [address] 25473- 9083 Jun, Impingement syndrome, shoulder, left M75.42 [place] [id number] [place] [address] 35799- 8805 May, Subacromial bursitis of left shoulder joint M75.52 [place] [id number] [place] [address] 25663- 3458 May, [place] [id number] [place] [address] 18894- 0803 May, Hypertriglyceridemia E78.1 ; FPC (current) use of anticoagulants Z79.01 and Excessive daytime sleepiness G47.19 [place] [id number] [place] [address] 07044- 4170 May, History of DVT (deep vein thrombosis) Z86.718 ; Generalized anxiety disorder F41.1 ; Hypertriglyceridemia E78.1 ; 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 ; Subacromial bursitis of left shoulder joint M75.52 and Excessive daytime sleepiness G47.19 [place] [address] [place] [address] 27715- 2374 May, [place] [id number] [place] [address] 50340- 1727 May, FPC (current) use of anticoagulants Z79.01 [place] [id number] [place] [address] 99320- 6174 Apr, FPC (current) use of anticoagulants Z79.01 [place] [id number] [place] [address] 18272- 7642 Apr, FPC (current) use of anticoagulants Z79.01 [facility] [address] [place] [address] 43897 2546 Apr, FPC (current) use of anticoagulants Z79.01 [facility] [id number] [place] [address] 83777 2546 Apr, [facility] [address] [address] 2546 Apr, FPC (current) use of anticoagulants Z79.01 [facility] [id number] [place] [address] 17861 2546 13 Apr, 2017 FPC (current) use of anticoagulants Z79.01 [facility] [id number] [place] [address] 24121 2546 Apr, FPC (current) use of anticoagulants Z79.01 [facility] [id number] [place] [address] 93934 2546 Apr, FPC (current) use of anticoagulants Z79.01 [facility] [id number] [place] [address] 90916 2546 Apr, 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 [facility] [id number] [place] [address] 73532 2546 Apr, FPC (current) use of anticoagulants Z79.01 [facility] [id number] [place] [address] 85029 2546 Mar, FPC (current) use of anticoagulants Z79.01 [facility] [id number] [place] [address] 17980 2546 Mar, [facility] [id number] [place] [address] 76167 2546 Mar, 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 [facility] [id number] [place] [address] [phone] Jan, Dental examination Z01.20 [facility] [address] [place] [address] [id number] Jan, [facility] [id number] [place] [address] 00836- 6687 Jan, FPC (current) use of anticoagulants Z79.01 [facility] [id number] [place] [address] 63908- 4927 Jan, History of DVT (deep vein thrombosis) Z86.718 [facility] [id number] [place] [address] 75323- 4641 Jan, Generalized anxiety disorder F41.1 and Peripheral edema R60.9 [facility] [id number] [place] [address] 48961- 6257 Nov, History of DVT (deep vein thrombosis) Z86.718 [facility] [id number] [place] [address] 26147- 1042 Nov, 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 [facility] [address] [place] [address] 87126 -1153 Nov, Acute non-recurrent maxillary sinusitis J01.00 [facility] [address] [place] [address] 88795- 2755 Oct, 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 [facility] [address] [place] [address] 31387- 3848 Oct, Personal history of venous thrombosis and embolism Z86.718 [facility] [id number] [place] [address] 24082- 1966 Sep, [facility] [id number] [place] [address] 54541- 8650 Sep, Personal history of venous thrombosis and embolism Z86.718 [facility] [id number] [place] [address] 39432- 5942 Sep, FPC (current) use of anticoagulants Z79.01 [place] [id number] [place] [address] 01315- 3858 Sep, FPC (current) use of anticoagulants Z79.01 [place] [address] [id number] [place] [address] 90150- 8584 Sep, Generalized anxiety disorder F41.1 and History of DVT (deep vein thrombosis) Z86.718 [place] [id number] [place] [address] 53555- 2726 Aug, History of DVT (deep vein thrombosis) Z86.718 ; Generalized anxiety disorder F41.1 ; 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 ; Pelvic pain R10.2 ; Hypertriglyceridemia E78.1 ; Excessive daytime sleepiness G47.19 ; Colon cancer screening Z12.11 ; Screening for breast cancer Z12.39 ; Peripheral edema R60.9 and Gastroesophageal reflux disease, esophagitis presence not specified K21.9 [place] [id number] [place] [address] 34544- 7489 Aug, [place] [id number] [place] [address] 82972- 2203 July, [place] [id number] [place] [address] 65588- 3070 July, History of DVT (deep vein thrombosis) Z86.718 [place] [id number] [place] [address] 01935- 6385 Jun, Generalized anxiety disorder F41.1 [place] [id number] [place] [address] 10457- 8544 Jun, History of DVT (deep vein thrombosis) Z86.718 [place] [id number] [place] [address] 01817- 2367 Jun, History of DVT (deep vein thrombosis) Z86.718 [place] [address] [place] [address]- 4871 Jun, History of DVT (deep vein thrombosis) Z86.718 [facility] [id number] [place] [address] 18614- 6895 Jun, History of DVT (deep vein thrombosis) Z86.718 [facility] [id number] [place] [address] 43394- 7285 May, History of DVT (deep vein thrombosis) Z86.718 [facility] [id number] [place] [address] 76645- 4460 May, 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 [place] [address] 70054- 9711 May, 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 [place] [id number] [place] [address] 56209- 1933 May, History of DVT (deep vein thrombosis) Z86.718 [facility] [id number] [place] [address] 95827 -0329 Apr, Bacterial conjunctivitis of left eye H10.9 and H/O motion sickness Z87.898 [facility] [address] [place] [address] 29513- 1699 Apr, History of DVT (deep vein thrombosis) Z86.718 [facility] [id number] [place] [address] 75068- 3440 Apr, History of DVT (deep vein thrombosis) Z86.718 [place] [id number] [place] [address] 34774- 1816 Apr, History of DVT (deep vein thrombosis) Z86.718 [facility] [id number] [place] [address] 50840- 8764 14 Apr, 2016 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 [facility] [address] [address]- 5939 Mar, [facility] [id number] [place] [address] 91719- 3596 Mar, FPC (current) use of anticoagulants Z79.01 [facility] [address] [place] [address] 02070 2546 Mar, Hypertriglyceridemia E78.1 and 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 [place] [id number] [place] [address] 07169 2546 Feb, FPC (current) use of anticoagulants Z79.01 [place] [id number] [place] [address] 14511 2546 Feb, FPC (current) use of anticoagulants Z79.01 [place] [id number] [place] [address] 67987- 8946 Feb, 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 [place] [address] [place] [address] 83800 2546 Dec, [place] [id number] [place] [address] 61244- 0536 Nov, [place] [address] [place] [address] 75902- 3646 Nov, History of DVT (deep vein thrombosis) Z86.718 ; Tremulousness R25.1 ; Generalized anxiety disorder F41.1 ; Peripheral edema R60.9 and Hypertriglyceridemia E78.1 [place] [address] [address] 2546 Oct, History of DVT (deep vein thrombosis) Z86.718 [place] [address] [place] [address] 79991 2546 Oct, [place] [address] [place] [address] 44010- 2546 Sep, History of DVT (deep vein thrombosis) Z86.718 [facility] [address] [place] [address] 61567- 0292 Sep, 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 [facility] [id number] [place] [address] 93703- 8146 July, [facility] [id number] [place] [address] 76254- 8381 July, 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 [facility] [id number] [place] [address] 07195- 4098 July, 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 [place] [id number] [place] [address] 17562- 7262 Jun, FPC (current) use of anticoagulants Z79.01 [facility] [id number] [place] [address] 72889 -7779 Jun, Coccyx pain M53.3 ; Encounter for therapeutic drug level monitoring Z51.81 and 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 current use 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.01 [facility] [id number] [place] [address] 53279- 7596 May, Abnormal mammogram R92.8 [facility] [id number] [place] [address] 53147 -7888 May, [facility] [id number] [place] [address] 28185 -4792 May, Acute vaginitis N76.0 and Encounter for other screening for malignant neoplasm of breast Z12.39 [place] [id number] [place] [address] 38122- 7461 Apr, [facility] [id number] [place] [address] 78843- 6673 Apr, [facility] [id number] [place] [address] 64990- 1333 Apr, Peripheral edema R60.9 [facility] [id number] [place] [address] 48471 2546 Apr, FPC (current) use of anticoagulants Z79.01 [facility] [id number] [place] [address] 48628 2546 Apr, Peripheral edema R60.9 and 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 [place] [id number] [place] [address] 47834 2546 Apr, FPC (current) use of anticoagulants Z79.01 [place] [id number] [place] [address] 78823 2546 Apr, [place] [id number] [place] [address] 52777 2546 Apr, FPC (current) use of anticoagulants Z79.01 [place] [id number] [place] [address] 52392 2546 Apr, Peripheral edema R60.9 [place] [id number] [place] [address] 46500 2546 Mar, 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 [place] [id number] [place] [address] 21157 2546 Mar, 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 and Hypertriglyceridemia E78.1 [place] [address] [place] [address] 60538 2546 Mar, FPC (current) use of anticoagulants Z79.01 [place] [id number] [place] [address] 69933 2546 Mar, 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 [place] [id number] [place] [address] 32753 2546 Mar, [place] [address] [place] [address]- 4181 Mar, 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 ; Hypertriglyceridemia E78.1 ; Personal history of venous thrombosis and embolism Z86.718 and Lump R22.9 [place] [address] [place] [address] 60533- 6350 Mar, Personal history of venous thrombosis and embolism Z86.718 [place] [id number] [place] [address] 22256- 5094 Mar, Personal history of venous thrombosis and embolism Z86.718 [place] [id number] [place] [address] 62681- 6650 Mar, [place] [id number] [place] [address] 59069- 7718 Dec, Personal history of venous thrombosis and embolism Z86.718 [place] [id number] [place] [address] 44392- 7690 Dec, Personal history of venous thrombosis and embolism V12.51 [place] [id number] [place] [address] 05811- 7555 Nov, Personal history of venous thrombosis and embolism V12.51 [place] [address] [place] [address] 70717- 8521 Nov, Personal history of venous thrombosis and embolism V12.51 [place] [address] [place] [address] 87595- 5407 Nov, Personal history of venous thrombosis and embolism V12.51 [place] [address] [place] [address] 83896- 5479 Nov, Personal history of venous thrombosis and embolism V12.51 [place] [address] [place] [address] 10914- 6866 Nov, [place] [id number] [place] [address] 03967- 1749 Oct, Dysuria 788.1 [facility] [address] [address]- 7808 Oct, Personal history of venous thrombosis and embolism V12.51 [facility] [address] [address]- 5987 Oct, [facility] [address] [address]- 1177 Oct, Personal history of venous thrombosis and embolism V12.51 [facility] [address] [place] [address] 87385- 7536 Sep, Personal history of venous thrombosis and embolism V12.51 [facility] [address] [place] [address] 09205- 4205 Sep, Personal history of venous thrombosis and embolism V12.51 [facility] [address] [place] [address] 84761- 7665 Aug, Personal history of venous thrombosis and embolism V12.51 [facility] [address] [address]- 1414 Aug, Personal history of venous thrombosis and embolism V12.51 [facility] [address] [address]- 1346 Aug, Personal history of venous thrombosis and embolism V12.51 [facility] [address] [address]- 3466 July, Generalized anxiety disorder 300.02 ; Abdominal pain, left lower quadrant 789.04 and Personal history of venous thrombosis and embolism V12.51 [facility] [address] [address]- 3451 Jun, [facility] [address] [address]- 2528 Jun, [facility] [address] [address]- 9870 May, [facility] [place] [facility] [address] [id number] [place] [address]- 3023 May, [facility] [place] [facility] [address] [id number] [place] [address]- 6183 May, [facility] [place] [facility] [address] [id number] [place] [address]- 3146 May, [facility] [place] [facility] [address] [id number] [place] [address]- 2895 May, [facility] [place] [facility] [address] [id number] [place] [address]- 1400 May, [facility] [place] [facility] [address] [id number] [place] [address]- 6312 May, [facility] [place] [facility] [address] [facility] [id number] [place] [address]- 0063 May, [facility] [place] [facility] [address] [id number] [place] [address]- 6012 Apr, [facility] [place] [facility] [address] [id number] [place] [address]- 1271 Apr, [facility] [place] [facility] [address] [facility] [id number] [place] [address]- 0374 Apr, [facility] [place] [facility] [address] [facility] [id number] [place] [address]- 7428 Apr, [facility] [place] [facility] [address] [id number] [address]- 7191 Apr, [facility] [place] [facility] [address] [id number] [place] [address]- 9166 Mar, [facility] [place] [facility] [address] [id number] [place] [address]- 4275 Mar, [facility] [place] [facility] [address] [facility] [id number] [address]- 8508 Mar, [facility] [place] [facility] [address] [id number] [place] [address]- 2153 Mar, [facility] [place] [facility] [address] [id number] [place] [address]- 0183 Mar, [facility] [place] [facility] [address] [id number] [place] [address]- 9253 Mar, [facility] [place] [facility] [address] [id number] [place] [address]- 2724 Feb, [facility] [place] [facility] [address] [id number] [place] [address]- 8135 Feb, [facility] [place] [facility] [address] [id number] [place] [address]- 3112 Feb, [facility] [place] [facility] [address] [id number] [place] [address]- 9153 Feb, [facility] [place] [facility] [address] [facility] [id number] [place] [address]- 7522 Feb, [facility] [place] [facility] [address] [id number] [place] [address]- 0208 Feb, [facility] [place] [facility] [address] [id number] [place] [address]- 5118 Feb, [facility] [place] [facility] [address] [id number] [place] [address]- 7489 Feb, [facility] [place] [facility] [address] [id number] [place] [address]- 4684 Feb, [facility] [place] [facility] [address] [id number] [place] [address]- 3331 Feb, [facility] [place] [facility] [address] [id number] [place] [address]- 5214 Jan, [facility] [place] [facility] [address] [id number] [place] [address]- 1441 Jan, [facility] [place] [facility] [address] [facility] [id number] [place] [address] Jan, [facility] [place] [facility] [address] [id number] [place] [address] Jan, [facility] [place] [facility] [address] [id number] [place] [address] Jan, [facility] [place] [facility] [address] [id number] [place] [address] Jan, [facility] [place] [facility] [address] [id number] [place] [address] Jan, [facility] [place] [facility] [address] [id number] [place] [address] Jan, [facility] [place] [facility] [address] [id number] [place] [address] Jan, [facility] [place] [facility] [address] [id number] [place] [address] Jan, [facility] [place] [facility] [address] [id number] [place] [address] Dec, [facility] [place] [facility] [address] [id number] [place] [address] Dec, [facility] [place] [facility] [address] [id number] [place] [address] Dec, [facility] [place] [facility] [address] [id number] [place] [address] Dec, [facility] [place] [facility] [address] [id number] [place] [address] Dec, [facility] [place] [facility] [address] [id number] [place] [address] Dec, [facility] [place] [facility] [address] [id number] [place] [address] Dec, [facility] [place] [facility] [address] [id number] [place] [address] Dec, [facility] [place] [facility] [address] [id number] [place] [address] Dec, [facility] [place] [facility] [address] [id number] [place] [address] Dec, [facility] [place] [facility] [address] [id number] [place] [address] Dec, [facility] [place] [facility] [address] [id number] [place] [address] Dec, [facility] [place] [facility] [address] [id number] [place] [address] Dec, [facility] [place] [facility] [address] [id number] [place] [address] Dec, [facility] [place] [facility] [address] [id number] [place] [address] Dec, [facility] [place] [facility] [address] [id number] [place] [address] 30 Nov, 2013 [facility] [place] [facility] [address] [id number] [place] [address] 30 Nov, 2013 [facility] [place] [facility] [address] [id number] [place] [address] 26 Nov, 2013 [facility] [place] [facility] [address] [id number] [place] [address] 26 Nov, 2013 [facility] [place] [facility] [address] [id number] [place] [address] 24 Sep, 2013 [facility] [place] [facility] [address] [id number] [place] [address] 24 Sep, 2013 [facility] [place] [facility] [address] [id number] [place] [address] 23 Sep, 2013 [facility] [place] [facility] [address] [id number] [place] [address] 23 Nov, 2013 [facility] [place] [facility] [address] [id number] [place] [address] 18 Nov, 2013 [facility] [place] [facility] [address] [id number] [place] [address] 18 Nov, 2013 [facility] [place] [facility] [address] [id number] [place] [address] 17 Nov, 2013 [facility] [place] [facility] [address] [id number] [place] [address] 17 Nov, 2013 [facility] [place] [facility] [address] [id number] [place] [address] 11 Nov, 2013 [facility] [place] [facility] [address] [id number] [place] [address] 2546 11 Nov, 2013 [facility] [place] [facility] [address] [id number] [place] [address] 8547 10 Nov, 2013 [facility] [place] [facility] [address] [id number] [place] [address] 6537 10 Nov, 2013 [facility] [place] [facility] [address] [id number] [place] [address] 4470 08 Nov, 2013 [facility] [place] [facility] [address] [id number] [place] [address] 7487 08 Nov, 2013 [facility] [place] [facility] [address] [id number] [place] [address] 64[address] Sep, 2013 [facility] [place] [facility] [address] [id number] [place] [address] Sep, [facility] [place] [facility] [address] [id number] [place] [address] 8463 Sep, 2013 [facility] [place] [facility] [address] [id number] [place] [address] 1082 Sep, 2013 [facility] [place] [facility] [address] [id number] [place] [address] 8132 Sep, [facility] [place] [facility] [address] [id number] [place] [address]- 1104 Sep, 2013 [facility] [place] [facility] [address] [id number] [place] [address] 8789 Aug, [facility] [place] [facility] [address] [id number] [place] [address] 3606 Aug, [facility] [place] [facility] [address] [id number] [place] [address]- 1390 Aug, [facility] [place] [facility] [address] [id number] [place] [address]- 1728 Aug, [facility] [place] [facility] [address] [id number] [place] [address]- 5161 Aug, [facility] [place] [facility] [address] [id number] [place] [address] 8199 Aug, [facility] [place] [facility] [address] [id number] [place] [address]- 2524 Aug, [facility] [place] [facility] [address] [id number] [place] [address]- 3747 Aug, [facility] [place] [facility] [address] [id number] [place] [address]- 1738 Aug, [facility] [place] [facility] [address] [id number] [place] [address]- 8439 Aug, [facility] [place] [facility] [address] [id number] [place] [address]- 5034 Aug, [facility] [place] [facility] [address] [id number] [place] [address] 8130 July, [facility] [place] [facility] [address] [id number] [place] [address]- 4592 July, [facility] [place] [facility] [address] [id number] [place] [address]- 9612 Jun, [facility] [place] [facility] [address] [id number] [place] [address]- 2223 Jun, [facility] [place] [facility] [address] [id number] [place] [address]- 9866 Jun, [facility] [place] [facility] [address] [id number] [place] [address]- 7496 18 Jun, 2013 [facility] [place] [facility] [address] [id number] [place] [address]- 9864 18 Jun, 2013 [facility] [place] [facility] [address] [id number] [place] [address]- 1938 18 Jun, 2013 [facility] [place] [facility] [address] [id number] [place] [address]- 7062 15 Jun, 2013 [facility] [place] [facility] [address] [id number] [place] [address]- 6642 15 Jun, 2013 [facility] [place] [facility] [address] [id number] [place] [address]- 8071 Jun, [facility] [place] [facility] [address] [id number] [place] [address]- 0801 Jun, [facility] [place] [facility] [address] [id number] [place] [address]- 6448 Jun, [facility] [place] [facility] [address] [id number] [place] [address]- 5751 Jun, [facility] [place] [facility] [address] [id number] [place] [address]- 3443 May, [facility] [place] [facility] [address] [id number] [place] [address] 9167 May, [facility] [place] [facility] [address] [id number] [place] [address]- 3583 May, [facility] [place] [facility] [address] [id number] [place] [address]- 2448 May, [facility] [place] [facility] [address] [id number] [place] [address]- 0200 May, [facility] [place] [facility] [address] [id number] [place] [address]- 8101 19 May, 2013 [facility] [place] [facility] [address] [id number] [place] [address]- 3193 May, [facility] [place] [facility] [address] [id number] [place] [address]- 9423 May, [facility] [place] [facility] [address] [id number] [place] [address]- 9586 May, [facility] [place] [facility] [address] [id number] [place] [address]- 0851 May, [facility] [place] [facility] [address] [id number] [place] [address]- 3360 May, [facility] [place] [facility] [address] [id number] [place] [address]- 8351 May, [facility] [place] [facility] [address] [id number] [place] [address]- 2874 Apr, [facility] [place] [facility] [address] [facility] [id number] [place] [address]- 9531 Apr, [facility] [place] [facility] [address] [id number] [place] [address]- 4530 Apr, [facility] [place] [facility] [address] [id number] [place] [address]- 9949 Apr, [facility] [place] [facility] [address] [facility] [id number] [place] [address]- 1634 Apr, [facility] [place] [facility] [address] [facility] [id number] [place] [address]- 0127 Apr, [facility] [place] [facility] [address] [facility] [id number] [place] [address]- 8723 Apr, [facility] [place] [facility] [address] [id number] [place] [address]- 3329 Apr, [facility] [place] [facility] [address] [id number] [place] [address]- 6066 Apr, [facility] [place] [facility] [address] [facility] [id number] [place] [address]- 9380 Apr, [facility] [place] [facility] [address] [facility] [id number] [place] [address]- 1514 Apr, [facility] [place] [facility] [address] [id number] [place] [address]- 8936 Apr, [facility] [place] [facility] [address] [id number] [place] [address]- 6838 Apr, 2013 [facility] [place] [facility] [address] [id number] [place] [address]- 9016 Apr, [facility] [place] [facility] [address] [id number] [place] [address]- 0368 Apr, [facility] [place] [facility] [address] [id number] [place] [address]- 9374 Apr, [facility] [place] [facility] [address] [id number] [place] [address]- 7717 Apr, [facility] [place] [facility] [address] [facility] [id number] [place] [address]- 5104 Jan, [facility] [place] [facility] [address] [id number] [place] [address]- 5715 Jan, [facility] [place] [facility] [address] [facility] [id number] [place] [address]- 7913 Jan, [facility] [place] [facility] [address] [facility] [id number] [place] [address]- 2606 Jan, [facility] [place] [facility] [address] [id number] [place] [address]- 1102 Jan, [facility] [place] [facility] [address] [id number] [place] [address]- 7941 Jan, [facility] [place] [facility] [address] [id number] [place] [address]- 4527 Jan, [facility] [place] [facility] [address] [facility] [id number] [place] [address]- 9361 Dec, [facility] [place] [facility] [address] [id number] [place] [address]- 0958 Dec, [facility] [place] [facility] [address] [id number] [place] [address]- 4360 Dec, [facility] [place] [facility] [address] [id number] [place] [address]- 1296 Nov, [facility] [place] [facility] [address] [id number] [place] [address]- 7074 Nov, [facility] [place] [facility] [address] [id number] [place] [address]- 1787 Nov, [facility] [place] [facility] [address] [id number] [place] [address]- 9894 Nov, [facility] [place] [facility] [address] [id number] [place] [address]- 8808 Oct, [facility] [place] [facility] [address] [id number] [place] [address]- 4048 Oct, [facility] [place] [facility] [address] [id number] [place] [address]- 0537 Oct, [facility] [place] [facility] [address] [id number] [place] [address]- 6177 Oct, [facility] [place] [facility] [address] [id number] [place] [address]- 8764 Oct, [facility] [place] [facility] [address] [id number] [place] [address]- 4506 Sep, [facility] [place] [facility] [address] [id number] [place] [address]- 7299 Sep, [facility] [place] [facility] [address] [id number] [place] [address]- 6509 Sep, [facility] [place] [facility] [address] [id number] [place] [address]- 8000 Sep, [facility] [place] [facility] [address] [id number] [place] [address]- 9548 Sep, [facility] [place] [facility] [address] [id number] [place] [address]- 2546 Sep, [facility] [address] [id number] [place] [address]- 6740 Sep, [facility] [address] [id number] [place] [address]- 6641 Aug, [facility] [address] [id number] [place] [address]- 1911 Aug, [facility] [place] [facility] [address] [id number] [place] [address]- 0742 July, [facility] [address] [id number] [place] [address]- 6077 Jun, [facility] [place] [facility] [address] [id number] [place] [address]- 8701 Jun, [facility] [address] [id number] [place] [address]- 2072 Jun, [facility] [place] [facility] [address] [id number] [place] [address]- 4752 Apr, [facility] [address] [id number] [place] [address]- 5912 Apr, [facility] [place] [facility] [address] [id number] [place] [address]- 2983 Apr, [facility] [address] [id number] [place] [address]- 7709 Mar, [facility] [place] [facility] [address] [id number] [place] [address]- 8001 Mar, [facility] [place] [facility] [address] [id number] [place] [address]- 5645 Mar, [facility] [place] [facility] [address] [id number] [place] [address]- 3685 Mar, [facility] [place] [facility] [address] [id number] [place] [address]- 7156 Mar, [facility] [place] [facility] [address] [id number] [place] [address]- 0368 14 Feb, 2012 [facility] [place] [facility] [address] [id number] [place] [address]- 6920 14 Feb, 2012 [facility] [place] [facility] [address] [id number] [place] [address]- 0016 13 Jan, 2012 [facility] [place] [facility] [address] [id number] [place] [address]- 4772 13 Jan, 2012 [facility] [place] [facility] [address] [id number] [place] [address]- 0501 13 Jan, 2012 [facility] [place] [facility] [address] [id number] [place] [address]- 8429 13 Jan, 2012 [facility] [place] [facility] [address] [id number] [place] [address]- 6377 07 Jan, 2012 [facility] [place] [facility] [address] [id number] [place] [address]- 7781 Jan, [facility] [place] [facility] [address] [id number] [place] [address]- 9366 06 Jan, 2012 [facility] [place] [facility] [address] [id number] [place] [address]- 1079 31 Dec, 2011 [facility] [place] [facility] [address] [facility] [id number] [place] [address]- 9616 31 Dec, 2011 [facility] [place] [facility] [address] [id number] [place] [address]- 4409 30 Dec, 2011 [facility] [place] [facility] [address] [id number] [place] [address]- 7777 30 Dec, 2011 [facility] [place] [facility] [address] [id number] [place] [address]- 6876 30 Dec, 2011 [facility] [place] [facility] [address] [facility] [id number] [place] [address]- 6416 30 Dec, 2011 [facility] [place] [facility] [address] [id number] [place] [address]- 0716 Dec, [facility] [place] [facility] [address] [id number] [place] [address]- 9356 Dec, [facility] [place] [facility] [address] [id number] [place] [address] Dec, [facility] [place] [facility] [address] [id number] [place] [address]- 8038 Dec, [facility] [place] [facility] [address] [id number] [place] [address]- 4604 Oct, [facility] [place] [facility] [address] [id number] [place] [address]- 4497 Oct, [facility] [place] [facility] [address] [id number] [place] [address]- 6986 Aug, [facility] [place] [facility] [address] [id number] [place] [address]- 2049 Aug, [facility] [place] [facility] [address] [id number] [place] [address]- 0572 July, [facility] [place] [facility] [address] [id number] [place] [address]- 0880 Jun, [facility] [place] [facility] [address] [id number] [place] [address]- 3486 Jun, [facility] [place] [facility] [address] [id number] [place] [address]- 7319 May, [facility] [place] [facility] [address] [id number] [place] [address]- 8971 Apr, [facility] [place] [facility] [address] [id number] [place] [address]- 2338 Apr, [facility] [place] [facility] [address] [id number] [place] [address]- 9706 Mar, [facility] [place] [facility] [address] [id number] [place] [address]- 5306 Mar, [facility] [place] [facility] [address] [id number] [place] [address]- 4734 19 Feb, 2011 [facility] [address] [id number] [place] [address]- 1626 15 Feb, 2011 [facility] [place] [facility] [address] [id number] [place] [address] 2546 13 Feb, 2011 [facility] [address] [id number] [place] [address]- 4076 13 Feb, 2011 [facility] [place] [facility] [address] [id number] [place] [address] 2544 Jan, [facility] [address] [id number] [place] [address]- 7969 17 Dec, 2010 [facility] [address] [id number] [place] [address]- 2542 08 Feb, 2010 [facility] [address] [id number] [place] [address]- 8335 02 Feb, 2010 [facility] [address] [id number] [place] [address]- 9425 Feb, [facility] [place] [facility] [address] [id number] [place] [address]- 1771 Feb, [facility] [address] [facility] [id number] [place] [address]- 1491 15 Dec, 2009 [facility] [place] [facility] [address] [id number] [place] [address]- 8830 15 Dec, 2009 [facility] [place] [facility] [address] [id number] [place] [address]- 9696 Oct, [facility] [place] [facility] [address] [id number] [place] [address]- 6122 15 Jun, 2009 [facility] [place] [facility] [address] [id number] [place] [address] 2549 Feb, [facility] [place] [facility] [address] [id number] [place] [address]- 4655 Feb, [facility] [address] [facility] [id number] [place] [address]- 3377 Feb, [facility] [address] [facility] [id number] [place] [address]- 5518 Dec, IMMUNIZATIONS No Known Immunizations SOCIAL HISTORY Never Assessed REASON FOR VISIT refill PLAN OF CARE VITAL SIGNS MEDICATIONS Medication Instructions Dosage Frequency Start Date End Date Duration Status Coumadin 1 MG 4 tablets daily Apr, Active RESULTS No Results PROCEDURES No Known procedures INSTRUCTIONS MEDICATIONS ADMINISTERED No Known Medications MEDICAL (GENERAL) HISTORY Type Description Date Medical History obesity Medical History Hematologic disorder factor clotting problem Medical History DVT's Surgical History Lap Band 10/2012 Surgical History section 1985, 1987 Surgical History cholecystectomy Surgical History [place] Filter 06/2009 Surgical History Left leg exploratory surgery r/t clot 1987 Surgical History left shoulder surgery 09/14/17 Hospitalization History Ruptured Ovarian Cyst with abd bleeding 11/2009
--- OUTSIDE RECORDS SUMMARY | 2018-08-02 09:06 | XMS REPORT ---
Author Author RHONDAFARHAT LOCKETT [facility] Address Unknown Care Team Providers Care Hatchery Manager Name Role Phone FARHAT CHAVEZ Unavailable PROBLEMS Type Condition ICD9-CM Code HXK04-KP Code Onset Dates Condition Status SNOMED Code Problem Hypertriglyceridemia E78.1 Active 480306708 Problem Generalized anxiety disorder F41.1 Active 708501936 Problem long term (current) 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 Z79.01 Active 502449725 Problem Factor V Leiden D68.51 Active 263649292 Problem History of DVT (deep vein thrombosis) Z86.718 Active 186646461 Problem Excessive daytime sleepiness G47.19 Active 861531204419 Problem Gastroesophageal reflux disease, esophagitis presence not specified K21.9 Active 166701412 Problem Pelvic pain R10.2 Active 65375294 Problem 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 Active 853567627 Problem Presence of IVC filter Z95.828 Active 427716495 Problem Peripheral edema R60.9 Active 342496433 ALLERGIES No Known Allergies ENCOUNTERS Encounter Location Date Diagnosis [place] [address] [address] July, Superior glenoid labrum lesion of left shoulder, subsequent encounter S43.432D [place] [address] [place] [id number] [place] [address] 32061- 0033 Jun, History of DVT (deep vein thrombosis) Z86.718 [place] [address] [place] [id number] [place] [address] 53571- 9930 Jun, History of DVT (deep vein thrombosis) Z86.718 [place] [address] [place] [id number] [place] [address] 12286- 9470 Jun, Impingement syndrome, shoulder, left M75.42 [place] [address] 39228- 1217 May, Subacromial bursitis of left shoulder joint M75.52 [place] [address] [place] [id number] [place] [address] 69869- 5140 May, [place] [address] [place] [id number] [place] [address] 93136- 2317 May, Hypertriglyceridemia E78.1 ; detention (current) use of anticoagulants Z79.01 and Excessive daytime sleepiness G47.19 [place] [address] [place] [id number] [place] [address] 05959- 1050 May, History of DVT (deep vein thrombosis) Z86.718 ; Generalized anxiety disorder F41.1 ; Hypertriglyceridemia E78.1 ; long term (current) 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 Z79.01 ; Subacromial bursitis of left shoulder joint M75.52 and Excessive daytime sleepiness G47.19 [place] [address] [place] [id number] [place] [address] 44916- 8501 May, [place] [address] [place] [id number] [place] [address] 03768- 2547 May, detention (current) use of anticoagulants Z79.01 [place] [address] [place] [id number] [place] [address] 39455- 7379 Apr, detention (current) use of anticoagulants Z79.01 [place] [address] [place] [id number] [place] [address] 20528- 4639 Apr, long term (current) 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 Z79.01 [place] [address] [place] [id number] [place] [address] 07220- 3293 Apr, detention (current) use of anticoagulants Z79.01 [place] [address] [place] [id number] [place] [address] 12935- 8166 Apr, [place] [address] [place] [id number] [place] [address] 47640- 3377 Apr, long term (current) 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 Z79.01 [facility] [address] [address] 2546 13 Apr, 2017 long term (current) 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 Z79.01 [facility] [id number] [place] [address] 58685 2546 Apr, long term (current) 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 Z79.01 [facility] [address] [place] [address] 60602 2546 Apr, long term (current) 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 Z79.01 [facility] [address] [place] [address] 31151 2546 Apr, long term (current) 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 Z79.01 [facility] [address] [place] [id number] [place] [address] 27561 2546 Apr, detention (current) use of anticoagulants Z79.01 [facility] [address] [place] [address] 87380 2546 Mar, detention (current) use of anticoagulants Z79.01 [facility] [id number] [place] [address] 89520 2546 Mar, [facility] [address] [place] [id number] [place] [address] 51381 2546 Mar, detention (current) use of anticoagulants Z79.01 [facility] [address] [place] [id number] [place] [address] [id number] Jan, Dental examination Z01.20 [facility] [address] [place] [id number] [place] [address] [id number] Jan, [facility] [address] [place] [id number] [place] [address] 46264 2546 Jan, long term (current) 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 Z79.01 [facility] [address] [place] [address] 93028 2546 17 Jan, 2017 History of DVT (deep vein thrombosis) Z86.718 [facility] [address] [place] [address] 86216- 8645 Jan, Generalized anxiety disorder F41.1 and Peripheral edema R60.9 [facility] [address] [place] [id number] [place] [address] 04566- 2518 Nov, History of DVT (deep vein thrombosis) Z86.718 [facility] [address] [place] [id number] [place] [address] 88625- 9003 Nov, detention (current) use of anticoagulants Z79.01 [facility] [address] [place] [id number] [place] [address] 49010 -5813 Nov, Acute non-recurrent maxillary sinusitis J01.00 [facility] [address] [place] [id number] [place] [address] 16871- 9525 Oct, detention (current) use of anticoagulants Z79.01 [place] [address] [place] [id number] [place] [address] 09680- 9571 Oct, Personal history of venous thrombosis and embolism Z86.718 [place] [address] [place] [id number] [place] [address] 89770- 2124 Sep, [facility] [address] [place] [id number] [place] [address] 33365- 5083 Sep, Personal history of venous thrombosis and embolism Z86.718 [facility] [address] [place] [id number] [place] [address] 71920- 8048 Sep, long term (current) 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 Z79.01 [place] [address] [place] [address] 80558- 7034 Sep, long term (current) 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 Z79.01 [place] [address] [place] [id number] [place] [address] 83437- 8267 Sep, Generalized anxiety disorder F41.1 and History of DVT (deep vein thrombosis) Z86.718 [place] [address] [place] [address] 74065- 7352 Aug, History of DVT (deep vein thrombosis) Z86.718 ; Generalized anxiety disorder F41.1 ; long term (current) 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 Z79.01 ; Pelvic pain R10.2 ; Hypertriglyceridemia E78.1 ; Excessive daytime sleepiness G47.19 ; Colon cancer screening Z12.11 ; Screening for breast cancer Z12.39 ; Peripheral edema R60.9 and Gastroesophageal reflux disease, esophagitis presence not specified K21.9 [place] [address] 84814- 5165 Aug, [place] [address] 54878- 2388 July, [place] [address] 57555- 4100 July, History of DVT (deep vein thrombosis) Z86.718 [place] [address] 06739- 6401 Jun, Generalized anxiety disorder F41.1 [place] [address] 26097- 3942 Jun, History of DVT (deep vein thrombosis) Z86.718 [place] [address] [place] [id number] [place] [address] 68955- 8521 Jun, History of DVT (deep vein thrombosis) Z86.718 [place] [address] 01976- 9731 Jun, History of DVT (deep vein thrombosis) Z86.718 [place] [address] [place] [id number] [place] [address] 57993- 4477 Jun, History of DVT (deep vein thrombosis) Z86.718 [place] [address] [place] [id number] [place] [address] 43433- 9416 May, History of DVT (deep vein thrombosis) Z86.718 [place] [address] 12074- 8946 May, detention (current) use of anticoagulants Z79.01 [facility] [address] [place] [id number] [place] [address] 29741- 8264 May, long term (current) 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 Z79.01 [facility] [address] [place] [id number] [place] [address] 89462- 0240 May, History of DVT (deep vein thrombosis) Z86.718 [facility] [address] [place] [id number] [place] [address] 85399 -0544 27 Apr, 2016 Bacterial conjunctivitis of left eye H10.9 and H/O motion sickness Z87.898 [place] [address] [place] [id number] [place] [address] 97698- 4009 24 Apr, 2016 History of DVT (deep vein thrombosis) Z86.718 [place] [address] [place] [id number] [place] [address] 70411- 9923 23 Apr, 2016 History of DVT (deep vein thrombosis) Z86.718 [place] [address] [place] [id number] [place] [address] 55940- 8998 15 Apr, 2016 History of DVT (deep vein thrombosis) Z86.718 [facility] [address] [place] [id number] [place] [address] 03478- 3407 14 Apr, 2016 detention (current) use of anticoagulants Z79.01 [place] [address] [place] [id number] [place] [address] 82521- 9176 Mar, [place] [address] [place] [id number] [place] [address] 07147- 8889 Mar, long term (current) 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 Z79.01 [place] [address] [place] [id number] [place] [address] 90557- 5087 Mar, detention (current) use of anticoagulants Z79.01 and Hypertriglyceridemia E78.1 [place] [address] 04506- 3886 Feb, detention (current) use of anticoagulants Z79.01 [facility] [address] [address]- 9016 Feb, long term (current) 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 Z79.01 [facility] [address] [address] 2546 Feb, detention (current) use of anticoagulants Z79.01 [facility] [address] [place] [address] 03030 2546 Dec, [place] [address] [place] [id number] [place] [address] 76475- 3776 Nov, [place] [address] [place] [address] 12914- 6376 Nov, History of DVT (deep vein thrombosis) Z86.718 ; Tremulousness R25.1 ; Generalized anxiety disorder F41.1 ; Peripheral edema R60.9 and Hypertriglyceridemia E78.1 [place] [address] [place] [address] 89271- 4976 Oct, History of DVT (deep vein thrombosis) Z86.718 [place] [address] [address]- 1946 Oct, [place] [address] [place] [address] 90187- 7836 Sep, History of DVT (deep vein thrombosis) Z86.718 [facility] [address] [address]- 2546 Sep, long term (current) 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 Z79.01 [facility] [address] [address] 2546 July, [facility] [address] 7866 July, long term (current) 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 Z79.01 [facility] [address] [place] [id number] [place] [address] 90088- 1166 July, long term (current) 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 Z79.01 [place] [address] [place] [id number] [place] [address] 17119- 7998 Jun, detention (current) use of anticoagulants Z79.01 [facility] [address] [place] [id number] [place] [address] 38413 -1514 Jun, Coccyx pain M53.3 ; Encounter for therapeutic drug level monitoring Z51.81 and long term current use 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.01 [place] [address] [place] [id number] [place] [address] 79072- 7979 May, Abnormal mammogram R92.8 [facility] [place] [address] 00173 -7836 May, [facility] [place] [address] 37278 -6277 May, Acute vaginitis N76.0 and Encounter for other screening for malignant neoplasm of breast Z12.39 [place] [address] 92342- 1810 Apr, [place] [address] [place] [id number] [place] [address] 06041- 3488 Apr, [place] [address] [place] [id number] [place] [address] 66218- 5817 Apr, Peripheral edema R60.9 [place] [address] [place] [id number] [place] [address] 82332- 8455 Apr, long term (current) 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 Z79.01 [place] [address] [place] [id number] [place] [address] 87054- 2381 Apr, Peripheral edema R60.9 and detention (current) use of anticoagulants Z79.01 [place] [address] [place] [id number] [place] [address] 20684- 8113 Apr, detention (current) use of anticoagulants Z79.01 [place] [address] [place] [address] 75360- 4432 Apr, [place] [address] [place] [id number] [place] [address] 17312- 5255 Apr, detention (current) use of anticoagulants Z79.01 [place] [address] [place] [id number] [place] [address] 58180- 9828 Apr, Peripheral edema R60.9 [place] [address] [place] [id number] [place] [address] 02477- 2826 Mar, long term (current) 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 Z79.01 [place] [address] [place] [id number] [place] [address] 01703- 3663 Mar, long term (current) 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 Z79.01 and Hypertriglyceridemia E78.1 [place] [address] [place] [id number] [place] [address] 09794- 7867 Mar, long term (current) 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 Z79.01 [place] [address] [place] [id number] [place] [address] 26237- 8936 Mar, long term (current) 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 Z79.01 [place] [address] [place] [id number] [place] [address] 52461- 6431 Mar, [place] [address] [place] [id number] [place] [address] 33038- 3273 Mar, detention (current) use of anticoagulants Z79.01 ; Hypertriglyceridemia E78.1 ; Personal history of venous thrombosis and embolism Z86.718 and Lump R22.9 [place] [address] [place] [id number] [place] [address] 69488- 9594 Mar, Personal history of venous thrombosis and embolism Z86.718 [place] [address] [place] [id number] [place] [address] 48973- 9727 Mar, Personal history of venous thrombosis and embolism Z86.718 [facility] [address] [place] [id number] [address]- 1479 Mar, [facility] [address] [address]- 3906 Dec, Personal history of venous thrombosis and embolism Z86.718 [facility] [address] [address]- 0106 Dec, Personal history of venous thrombosis and embolism V12.51 [facility] [address] [facility] [id number] [address]- 1073 Nov, Personal history of venous thrombosis and embolism V12.51 [facility] [address] [place] [address] 05896- 7636 Nov, Personal history of venous thrombosis and embolism V12.51 [facility] [address] [address]- 0483 Nov, Personal history of venous thrombosis and embolism V12.51 [facility] [address] [address]- 9926 Nov, Personal history of venous thrombosis and embolism V12.51 [facility] [address] [address]- 8766 Nov, [facility] [address] [address]- 1151 Oct, Dysuria 788.1 [facility] [address] [address] 2549 Oct, Personal history of venous thrombosis and embolism V12.51 [facility] [address] [address] 2546 Oct, [facility] [address] [address]- 2544 Oct, Personal history of venous thrombosis and embolism V12.51 [facility] [id number] [address]- 9556 Sep, Personal history of venous thrombosis and embolism V12.51 [facility] [address] [facility] [id number] [address]- 9734 Sep, Personal history of venous thrombosis and embolism V12.51 [facility] [address] [place] [id number] [address]- 7708 Aug, Personal history of venous thrombosis and embolism V12.51 [facility] [address] [facility] [id number] [address]- 7479 Aug, Personal history of venous thrombosis and embolism V12.51 [facility] [address] [address]- 6336 Aug, Personal history of venous thrombosis and embolism V12.51 [facility] [address] [address]- 9746 July, Generalized anxiety disorder 300.02 ; Abdominal pain, left lower quadrant 789.04 and Personal history of venous thrombosis and embolism V12.51 [facility] [address] [address]- 3572 Jun, [facility] [address] [address]- 7619 Jun, [facility] [address] [place] [id number] [address]- 9453 May, [facility] [address] [place] [id number] 8130 27 May, 2014 [facility] [address] [id number] 2289 17 May, 2014 [facility] [address] [facility] [id number] [address]- 5722 17 May, 2014 [facility] [id number] [address]- 0264 13 May, 2014 [facility] [address] [place] [address]- 4860 May, [facility] [place] [facility] [address] [id number] [place] [address]- 7475 May, [facility] [place] [facility] [address] [id number] [place] [address]- 0956 May, [facility] [place] [facility] [address] [id number] [place] [address]- 3436 Apr, [facility] [place] [facility] [address] [id number] [place] [address]- 3565 Apr, [facility] [place] [facility] [address] [id number] [place] [address]- 2856 Apr, [facility] [place] [facility] [address] [id number] [place] [address]- 2346 Apr, [facility] [place] [facility] [address] [id number] [place] [address]- 7631 Apr, [facility] [place] [facility] [address] [id number] [place] [address]- 5844 Mar, [facility] [place] [facility] [address] [id number] [place] [address]- 7023 Mar, [facility] [place] [facility] [address] [facility] [id number] [place] [address]- 2812 Mar, [facility] [place] [facility] [address] [id number] [place] [address]- 7555 Mar, [facility] [place] [facility] [address] [id number] [place] [address]- 2547 Mar, [facility] [place] [facility] [address] [id number] [place] 8306 Mar, [facility] [place] [facility] [address] [id number] [place] [address]- 6436 Feb, [facility] [place] [facility] [address] [id number] [place] [address]- 7475 Feb, [facility] [place] [facility] [address] [id number] [place] [address]- 9508 Feb, [facility] [place] [facility] [address] [id number] [place] [address]- 1636 Feb, [facility] [place] [facility] [address] [id number] [place] 7608 Feb, [facility] [place] [facility] [address] [id number] [place] [address]- 9537 Feb, [facility] [place] [facility] [address] [id number] [place] 2105 Feb, [facility] [place] [facility] [address] [id number] [place] [address]- 2338 Feb, [facility] [place] [facility] [address] [id number] [place] [address]- 4095 Feb, [facility] [place] [facility] [address] [id number] [place] [address]- 0518 Feb, [facility] [place] [facility] [address] [id number] [place] [address]- 4576 Jan, [facility] [place] [facility] [address] [id number] [place] [address]- 3870 Jan, [facility] [place] [facility] [address] [id number] [place] [address]- 4744 Jan, [facility] [place] [facility] [address] [id number] [place] [address]- 3662 Jan, [facility] [place] [facility] [address] [id number] [place] [address]- 8973 Jan, [facility] [place] [facility] [address] [id number] [place] [address]- 9560 Jan, [facility] [place] [facility] [address] [id number] [place] [address] Jan, [facility] [place] [facility] [address] [id number] [place] [address] Jan, [facility] [place] [facility] [address] [id number] [place] [address] Jan, [facility] [place] [facility] [address] [id number] [place] [address] Jan, [facility] [place] [facility] [address] [id number] [place] [address] Dec, [facility] [place] [facility] [address] [id number] [place] [address] Dec, [facility] [place] [facility] [address] [id number] [place] [address] Dec, [facility] [place] [facility] [address] [id number] [place] [address] Dec, [facility] [place] [facility] [address] [id number] [place] [address] Dec, [facility] [place] [facility] [address] [id number] [place] [address] Dec, [facility] [place] [facility] [address] [id number] [place] [address] Dec, [facility] [place] [facility] [address] [id number] [place] [address] Dec, [facility] [place] [facility] [address] [id number] [place] [address] Dec, [facility] [place] [facility] [address] [id number] [address] Dec, [facility] [place] [facility] [address] [id number] [place] [address] Dec, [facility] [place] [facility] [address] [id number] [place] [address] Dec, [facility] [place] [facility] [address] [id number] [place] [address] Dec, [facility] [place] [facility] [address] [id number] [place] [address] Dec, [facility] [place] [facility] [address] [id number] [place] [address] Dec, [facility] [place] [facility] [address] [id number] [place] [address] 30 Nov, 2013 [facility] [place] [facility] [address] [id number] [place] [address] 30 Nov, 2013 [facility] [place] [facility] [address] [id number] [place] [address] 26 Nov, 2013 [facility] [place] [facility] [address] [id number] [place] [address] 254 26 Nov, 2013 [facility] [place] [facility] [address] [id number] [place] [address] 24 Nov, 2013 [facility] [place] [facility] [address] [id number] [place] [address] 24 Nov, 2013 [facility] [place] [facility] [address] [id number] [place] [address] 2548 23 Nov, 2013 [facility] [place] [facility] [address] [id number] [place] [address] 2549 23 Nov, 2013 [facility] [place] [facility] [address] [id number] [place] [address] 2542 18 Nov, 2013 [facility] [place] [facility] [address] [id number] [place] [address] 2547 18 Nov, 2013 [facility] [place] [facility] [address] [id number] [place] [address] 2540 17 Nov, 2013 [facility] [place] [facility] [address] [id number] [place] [address] 2546 17 Nov, 2013 [facility] [place] [facility] [address] [id number] [place] [address] 2545 11 Nov, 2013 [facility] [place] [facility] [address] [id number] [place] [address] 8733 11 Nov, 2013 [facility] [place] [facility] [address] [id number] [place] [address]- 4642 10 Nov, 2013 [facility] [place] [facility] [address] [id number] [place] [address]- 4806 10 Nov, 2013 [facility] [place] [facility] [address] [id number] [place] [address]- 7599 08 Nov, 2013 [facility] [place] [facility] [address] [id number] [place] [address]- 0561 08 Nov, 2013 [facility] [place] [facility] [address] [id number] [place] [address] Sep, [facility] [place] [facility] [address] [id number] [place] [address]- 6649 Sep, [facility] [place] [facility] [address] [id number] [place] [address]- 5390 Sep, [facility] [place] [facility] [address] [id number] [place] [address]- 6088 Sep, [facility] [place] [facility] [address] [id number] [place] [address]- 2564 Sep, [facility] [place] [facility] [address] [id number] [place] [address]- 9334 Sep, [facility] [place] [facility] [address] [id number] [place] [address]- 2816 Aug, [facility] [place] [facility] [address] [id number] [address] Aug, [facility] [place] [facility] [address] [id number] [place] [address]- 9868 Aug, [facility] [place] [facility] [address] [id number] [place] [address]- 8938 Aug, [facility] [place] [facility] [address] [id number] [place] [address]- 2692 24 Aug, 2013 [facility] [place] [facility] [address] [id number] [place] [address]- 1548 Aug, [facility] [place] [facility] [address] [id number] [place] [address]- 2281 Aug, [facility] [place] [facility] [address] [id number] [place] [address]- 3877 Aug, [facility] [place] [facility] [address] [id number] [place] [address]- 2970 Aug, [facility] [place] [facility] [address] [id number] [place] [address]- 1986 Aug, [facility] [place] [facility] [address] [id number] [place] [address]- 0226 Aug, [facility] [place] [facility] [address] [id number] [place] [address]- 5189 July, [facility] [place] [facility] [address] [id number] [place] [address]- 8250 July, [facility] [place] [facility] [address] [id number] [place] [address]- 6302 Jun, [facility] [place] [facility] [address] [id number] [place] [address]- 9797 Jun, [facility] [place] [facility] [address] [id number] [place] [address]- 2216 Jun, [facility] [place] [facility] [address] [id number] [place] [address]- 4784 Jun, [facility] [place] [facility] [address] [id number] [place] [address]- 5504 Jun, [facility] [place] [facility] [address] [id number] [place] [address]- 7890 Jun, [facility] [place] [facility] [address] [id number] [place] [address]- 5717 Jun, [facility] [place] [facility] [address] [id number] [place] [address]- 6777 Jun, [facility] [place] [facility] [address] [id number] [place] [address]- 2458 11 Jun, 2013 [facility] [place] [facility] [address] [id number] [place] [address]- 7112 11 Jun, 2013 [facility] [place] [facility] [address] [id number] [place] [address]- 8204 Jun, [facility] [place] [facility] [address] [id number] [place] [address]- 0650 Jun, [facility] [place] [facility] [address] [id number] [place] [address]- 6923 May, [facility] [place] [facility] [address] [id number] [place] [address]- 7542 May, [facility] [place] [facility] [address] [id number] [place] [address]- 7778 May, [facility] [place] [facility] [address] [id number] [place] [address]- 7645 May, [facility] [place] [facility] [address] [id number] [place] [address]- 8064 May, [facility] [place] [facility] [address] [id number] [place] [address]- 6041 May, [facility] [place] [facility] [address] [id number] [place] [address]- 6433 May, [facility] [place] [facility] [address] [id number] [place] [address]- 5570 May, [facility] [place] [facility] [address] [id number] [place] [address]- 7823 May, [facility] [place] [facility] [address] [id number] [place] [address]- 2843 May, [facility] [place] [facility] [address] [id number] [place] [address]- 6873 May, [facility] [place] [facility] [address] [id number] [place] [address]- 2187 May, [facility] [place] [facility] [address] [id number] [place] [address]- 9226 Apr, [facility] [place] [facility] [address] [id number] [place] [address]- 4026 Apr, [facility] [place] [facility] [address] [id number] [place] [address]- 1866 Apr, [facility] [place] [facility] [address] [id number] [place] [address]- 0033 Apr, [facility] [place] [facility] [address] [id number] [place] [address]- 8663 Apr, [facility] [place] [facility] [address] [id number] [place] [address]- 9150 Apr, [facility] [place] [facility] [address] [id number] [place] [address]- 6913 Apr, [facility] [place] [facility] [address] [id number] [place] [address]- 3942 Apr, [facility] [place] [facility] [address] [facility] [id number] [place] [address]- 6014 Apr, [facility] [place] [facility] [address] [facility] [id number] [place] [address]- 9966 Apr, [facility] [place] [facility] [address] [facility] [id number] [place] [address] 2546 Apr, [facility] [place] [facility] [address] [id number] [place] [address]- 2543 Apr, [facility] [place] [facility] [address] [id number] [place] [address]- 0370 Apr, [facility] [place] [facility] [address] [facility] [id number] [place] [address]- 0293 Apr, [facility] [place] [facility] [address] [facility] [id number] [place] [address]- 1066 Apr, [facility] [place] [facility] [address] [id number] [place] [address]- 0317 Apr, [facility] [place] [facility] [address] [id number] [place] [address]- 1917 Apr, [facility] [place] [facility] [address] [facility] [id number] [place] [address]- 5072 Jan, [facility] [place] [facility] [address] [id number] [place] [address]- 7119 Jan, [facility] [place] [facility] [address] [id number] [place] [address]- 6968 Jan, [facility] [place] [facility] [address] [id number] [place] [address]- 4523 Jan, [facility] [place] [facility] [address] [id number] [place] [address]- 1029 Jan, [facility] [place] [facility] [address] [id number] [place] [address]- 4508 Jan, [facility] [place] [facility] [address] [id number] [place] [address]- 1644 Jan, [facility] [place] [facility] [address] [id number] [place] [address]- 6816 Dec, [facility] [place] [facility] [address] [id number] [address]- 5413 Dec, [facility] [place] [facility] [address] [id number] [place] [address]- 4620 Dec, [facility] [place] [facility] [address] [id number] [place] [address]- 5716 Nov, [facility] [place] [facility] [address] [id number] [place] [address]- 1417 10 Nov, 2012 [facility] [place] [facility] [address] [facility] [id number] [place] [address]- 1629 05 Nov, 2012 [facility] [place] [facility] [address] [id number] [place] [address]- 3068 Nov, [facility] [address] [id number] [place] [address]- 9426 Oct, [facility] [address] [id number] [place] [address]- 3319 Oct, [facility] [address] [id number] [place] [address]- 8540 Oct, [facility] [address] [id number] [place] [address]- 1538 Oct, [facility] [address] [id number] [place] [address]- 1381 Oct, [facility] [address] [id number] [place] [address]- 6608 Sep, [facility] [address] [id number] [place] [address]- 3980 Sep, [facility] [address] [id number] [place] [address]- 9443 Sep, [facility] [address] [id number] [place] [address]- 8992 Sep, [facility] [address] [id number] [place] [address]- 0401 Sep, [facility] [address] [id number] [place] [address]- 1637 Sep, [facility] [address] [id number] [place] [address]- 8044 Sep, [facility] [place] [facility] [address] [id number] [place] [address]- 5669 Aug, [facility] [place] [facility] [address] [id number] [place] [address]- 9287 Aug, [facility] [place] [facility] [address] [id number] [place] [address]- 4409 July, [facility] [place] [facility] [address] [id number] [place] [address]- 1153 Jun, [facility] [place] [facility] [address] [id number] [place] [address]- 1936 Jun, [facility] [place] [facility] [address] [id number] [place] [address]- 0828 Jun, [facility] [place] [facility] [address] [id number] [place] [address]- 7196 Apr, [facility] [place] [facility] [address] [id number] [place] [address]- 3442 Apr, [facility] [place] [facility] [address] [id number] [place] [address]- 1357 Apr, [facility] [address] [id number] [place] [address]- 9654 Mar, [facility] [address] [id number] [place] [address]- 8351 Mar, [facility] [place] [facility] [address] [id number] [place] [address]- 7785 Mar, [facility] [address] [id number] [place] [address]- 2816 Mar, [facility] [place] [facility] [address] [id number] [place] [address]- 2310 Mar, [facility] [place] [facility] [address] [id number] [place] [address]- 0281 14 Feb, 2012 [facility] [place] [facility] [address] [id number] [place] [address]- 8126 Feb, [facility] [place] [facility] [address] [id number] [place] [address]- 9916 Jan, [facility] [place] [facility] [address] [id number] [place] [address]- 9980 Jan, [facility] [place] [facility] [address] [id number] [place] [address]- 1408 13 Jan, 2012 [facility] [place] [facility] [address] [id number] [place] [address]- 1111 13 Jan, 2012 [facility] [place] [facility] [address] [id number] [place] [address]- 7214 07 Jan, 2012 [facility] [place] [facility] [address] [id number] [place] [address]- 0620 07 Jan, 2012 [facility] [place] [facility] [address] [id number] [place] [address]- 3580 Jan, [facility] [place] [facility] [address] [id number] [place] [address], [place] [address]- 9349 Dec, [facility] [place] [facility] [address] [id number] [place] [address]- 5851 Dec, [facility] [place] [facility] [address] [id number] [place] [address], [place] [address]- 3244 Dec, [facility] [place] [facility] [address] [id number] [place] [address]- 8884 Dec, [facility] [place] [facility] [address] [id number] [place] [address]- 8329 Dec, [facility] [place] [facility] [address] [facility] [id number] [place] [address]- 1663 Dec, [facility] [place] [facility] [address] [id number] [place] [address]- 3232 Dec, [facility] [place] [facility] [address] [id number] [address]- 3881 Dec, [facility] [place] [facility] [address] [id number] [address]- 8800 Dec, [facility] [place] [facility] [address] [facility] [id number] [place] [address]- 0399 Dec, [facility] [place] [facility] [address] [facility] [id number] [place] [address]- 9471 Oct, [facility] [place] [facility] [address] [id number] [place] [address]- 1818 Oct, [facility] [place] [facility] [address] [id number] [place] [address]- 6086 Aug, [facility] [place] [facility] [address] [id number] [place] [address]- 4529 Aug, [facility] [place] [facility] [address] [id number] [place] [address]- 8617 July, [facility] [place] [facility] [address] [id number] [place] [address]- 2852 Jun, [facility] [place] [facility] [address] [id number] [place] [address]- 9522 Jun, [facility] [place] [facility] [address] [id number] [place] [address]- 2744 May, [facility] [place] [facility] [address] [id number] [place] [address]- 4302 Apr, [facility] [place] [facility] [address] [id number] [place] [address]- 0236 Apr, [facility] [place] [facility] [address] [id number] [place] [address]- 1080 Mar, [facility] [place] [facility] [address] [id number] [place] [address]- 3007 Mar, [facility] [place] [facility] [address] [id number] [place] [address]- 7333 19 Feb, 2011 [facility] [place] [facility] [address] [id number] [place] [address]- 3228 15 Feb, 2011 [facility] [place] [facility] [address] [id number] [place] [address]- 6099 13 Feb, 2011 [facility] [place] [facility] [address] [id number] [place] [address]- 3140 13 Feb, 2011 [facility] [place] [facility] [address] [id number] [address]- 7050 Jan, [facility] [address] [facility] [id number] [place] [address]- 3339 Dec, [facility] [address] [facility] [id number] [place] [address]43 Feb, [facility] [id number] [address]- 7175 Feb, [facility] [address] [facility] [id number] [place] 1630 Feb, [facility] [address] [facility] [id number] [place] [address]- 4916 Feb, [facility] [id number] [place] [address]- 7773 Dec, [facility] [id number] [address]- 4636 Dec, [facility] [id number] [address]- 4958 Oct, [facility] [id number] [address]- 5348 Jun, [facility] [id number] [address]- 3870 Feb, [facility] [id number] [address]- 8322 Feb, [facility] [id number] [address]- 9103 Feb, [facility] [address] [id number] [address]- 1467 Dec, IMMUNIZATIONS No Known Immunizations SOCIAL HISTORY Never Assessed REASON FOR VISIT eric PLAN OF CARE Activity Details Follow Up prn Reason:hygiene/post BU VITAL SIGNS MEDICATIONS Medication Instructions Dosage Frequency Start Date End Date Duration Status Hydrochlorothiazide 50 mg TAKE ONE TABLET BY MOUTH DAILY 90 days Active Tylenol 325 MG Orally every 6 hrs 1 tablet as needed 6h Not-Taking Omeprazole 10 MG Orally Once a day 1 capsule 24h Active Lexapro 10 mg Orally Once a day 1 tablet 24h 90 days Active Coumadin 4 MG TAKE ONE TABLET BY MOUTH ONCE DAILY ALONG WITH COUMADIN 1 MG 30 Active Vistaril 50 mg Orally every 6 hrs 1 capsule as needed 6h 90 days Active Ondansetron 4 MG Orally every 8 hrs PRN 1 tablet on the tongue and allow to dissolve Apr, 05 days Active RESULTS No Results PROCEDURES Procedure Date Ordered Result Body Site LTD ORAL EVALUATION - PROBLEM FOCUS Feb 25, 2017 INTRAORL-PERIAPICAL 1 FILM 00902 Feb 25, 2017 INSTRUCTIONS MEDICATIONS ADMINISTERED No Known Medications [...]
--- OUTSIDE RECORDS SUMMARY | 2018-08-02 09:07 | XMS REPORT ---
Author Author KIANA ASHLEY [facility] Address [address] [place] [address] Care Team Providers Care Digital Associate Media Director Name Role Phone ELMO BRUNOY Unavailable PROBLEMS Type Condition ICD9-CM Code AUS69-MV Code Onset Dates Condition Status SNOMED Code Problem Generalized anxiety disorder F41.1 Active 353989332 Problem 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 Active 867644975 Problem History of DVT (deep vein thrombosis) Z86.718 Active 515705336 Problem Factor V Leiden D68.51 Active 834153737 Problem Hypertriglyceridemia E78.1 Active 452365085 Problem USP (current) use of anticoagulants Z79.01 Active 696746647 Problem Thyroid nodule E04.1 Active 484319001 Problem Excessive daytime sleepiness G47.19 Active 935614067613 Problem Peripheral edema R60.9 Active 893794190 Problem Pelvic pain R10.2 Active 48765092 Problem Gastroesophageal reflux disease, esophagitis presence not specified K21.9 Active 663539912 Problem Presence of IVC filter Z95.828 Active 620410902 ALLERGIES No Information ENCOUNTERS Encounter Location Date Diagnosis [place] [address] [address] Aug, [facility] [id number] [place] [address] 89159- 9738 Aug, [facility] [id number] [place] [address] 95271- 0739 Aug, Acute pain of left shoulder M25.512 and Thyroid nodule E04.1 [facility] [address] [place] [address] 08449- 9711 July, Superior glenoid labrum lesion of left shoulder, subsequent encounter S43.432D [place] [id number] [place] [address] 62670- 1135 Jun, History of DVT (deep vein thrombosis) Z86.718 [facility] [id number] [place] [address] 97650- 3677 Jun, History of DVT (deep vein thrombosis) Z86.718 [place] [id number] [place] [address] 65382- 0649 Jun, Impingement syndrome, shoulder, left M75.42 [place] [id number] [place] [address] 07337- 3348 May, Subacromial bursitis of left shoulder joint M75.52 [place] [id number] [place] [address] 10051- 1222 May, [place] [id number] [place] [address] 70352- 9166 May, Hypertriglyceridemia E78.1 ; USP (current) use of anticoagulants Z79.01 and Excessive daytime sleepiness G47.19 [place] [id number] [place] [address] 29801- 7921 May, History of DVT (deep vein thrombosis) Z86.718 ; Generalized anxiety disorder F41.1 ; Hypertriglyceridemia E78.1 ; long term care administrator (current) use of anticoagulants Z79.01 ; Subacromial bursitis of left shoulder joint M75.52 and Excessive daytime sleepiness G47.19 [place] [id number] [place] [address] 07035- 0666 May, [place] [id number] [place] [address] 46680- 2420 May, USP (current) use of anticoagulants Z79.01 [place] [id number] [place] [address] 64835- 9902 Apr, USP (current) use of anticoagulants Z79.01 [place] [id number] [place] [address] 34487- 2770 Apr, USP (current) use of anticoagulants Z79.01 [facility] [address] [place] [address] 89461 2546 Apr, USP (current) use of anticoagulants Z79.01 [facility] [id number] [place] [address] 31798 2546 Apr, [facility] [address] [address] 2546 Apr, USP (current) use of anticoagulants Z79.01 [facility] [id number] [place] [address] 67841 2546 13 Apr, 2017 USP (current) use of anticoagulants Z79.01 [facility] [id number] [place] [address] 83737 2546 Apr, USP (current) use of anticoagulants Z79.01 [facility] [id number] [place] [address] 94439 2546 Apr, USP (current) use of anticoagulants Z79.01 [facility] [id number] [place] [address] 75639 2546 Apr, long term care administrator (current) use of anticoagulants Z79.01 [facility] [id number] [place] [address] 57341 2546 Apr, USP (current) use of anticoagulants Z79.01 [facility] [id number] [place] [address] 95946 2546 Mar, USP (current) use of anticoagulants Z79.01 [facility] [id number] [place] [address] 69290 2546 Mar, [facility] [id number] [place] [address] 89806 2546 Mar, long term care administrator (current) use of anticoagulants Z79.01 [facility] [id number] [place] [address] [id number] Jan, Dental examination Z01.20 [facility] [address] [place] [address] [id number] Jan, [facility] [id number] [place] [address] 81361- 6359 Jan, USP (current) use of anticoagulants Z79.01 [facility] [id number] [place] [address] 22473- 8185 Jan, History of DVT (deep vein thrombosis) Z86.718 [facility] [id number] [place] [address] 99904- 5387 Jan, Generalized anxiety disorder F41.1 and Peripheral edema R60.9 [facility] [id number] [place] [address] 80574- 5641 Nov, History of DVT (deep vein thrombosis) Z86.718 [facility] [id number] [place] [address] 09846- 8330 Nov, long term care administrator (current) use of anticoagulants Z79.01 [facility] [address] [place] [address] 85096 -0544 Nov, Acute non-recurrent maxillary sinusitis J01.00 [facility] [address] [place] [address] 24384- 0772 Oct, long term care administrator (current) use of anticoagulants Z79.01 [facility] [address] [place] [address] 75461- 3771 Oct, Personal history of venous thrombosis and embolism Z86.718 [facility] [id number] [place] [address] 51368- 8479 Sep, [facility] [id number] [place] [address] 59660- 2232 Sep, Personal history of venous thrombosis and embolism Z86.718 [facility] [id number] [place] [address] 69210- 9619 Sep, USP (current) use of anticoagulants Z79.01 [place] [id number] [place] [address] 21817- 3283 Sep, USP (current) use of anticoagulants Z79.01 [place] [id number] [place] [address] 87190- 2804 Sep, Generalized anxiety disorder F41.1 and History of DVT (deep vein thrombosis) Z86.718 [place] [id number] [place] [address] 89185- 8410 Aug, History of DVT (deep vein thrombosis) Z86.718 ; Generalized anxiety disorder F41.1 ; long term care administrator (current) use of anticoagulants Z79.01 ; Pelvic pain R10.2 ; Hypertriglyceridemia E78.1 ; Excessive daytime sleepiness G47.19 ; Colon cancer screening Z12.11 ; Screening for breast cancer Z12.39 ; Peripheral edema R60.9 and Gastroesophageal reflux disease, esophagitis presence not specified K21.9 [place] [id number] [place] [address] 34397- 0286 Aug, [place] [id number] [place] [address] 82842- 9971 July, [place] [id number] [place] [address] 34946- 0862 July, History of DVT (deep vein thrombosis) Z86.718 [place] [id number] [place] [address] 06500- 7528 Jun, Generalized anxiety disorder F41.1 [place] [id number] [place] [address] 89537- 9841 Jun, History of DVT (deep vein thrombosis) Z86.718 [place] [id number] [place] [address] 67167- 1781 Jun, History of DVT (deep vein thrombosis) Z86.718 [place] [address] [place] [address]- 1232 Jun, History of DVT (deep vein thrombosis) Z86.718 [facility] [id number] [place] [address] 88291- 0232 Jun, History of DVT (deep vein thrombosis) Z86.718 [facility] [id number] [place] [address] 23690- 3626 May, History of DVT (deep vein thrombosis) Z86.718 [facility] [id number] [place] [address] 95917- 1710 May, long term care administrator (current) use of anticoagulants Z79.01 [place] [address] 43447- 3108 May, long term care administrator (current) use of anticoagulants Z79.01 [place] [id number] [place] [address] 71661- 8691 May, History of DVT (deep vein thrombosis) Z86.718 [facility] [id number] [place] [address] 77884 -0744 Apr, Bacterial conjunctivitis of left eye H10.9 and H/O motion sickness Z87.898 [facility] [address] [place] [address] 37937- 3064 Apr, History of DVT (deep vein thrombosis) Z86.718 [facility] [id number] [place] [address] 82602- 6821 Apr, History of DVT (deep vein thrombosis) Z86.718 [place] [id number] [place] [address] 82726- 3171 Apr, History of DVT (deep vein thrombosis) Z86.718 [facility] [id number] [place] [address] 78022- 9146 14 Apr, 2016 long term care administrator (current) use of anticoagulants Z79.01 [facility] [address] [address]- 1298 Mar, [facility] [id number] [place] [address] 69763- 1876 Mar, USP (current) use of anticoagulants Z79.01 [facility] [address] [place] [address] 02541 2546 Mar, Hypertriglyceridemia E78.1 and long term care administrator (current) use of anticoagulants Z79.01 [place] [id number] [place] [address] 30969 2546 Feb, USP (current) use of anticoagulants Z79.01 [place] [id number] [place] [address] 17616 2546 Feb, USP (current) use of anticoagulants Z79.01 [place] [id number] [place] [address] 01944- 8786 Feb, long term care administrator (current) use of anticoagulants Z79.01 [place] [address] [place] [address] 13468 2546 Dec, [place] [id number] [place] [address] 90094- 2196 Nov, [place] [address] [place] [address] 32157- 8866 Nov, History of DVT (deep vein thrombosis) Z86.718 ; Tremulousness R25.1 ; Generalized anxiety disorder F41.1 ; Peripheral edema R60.9 and Hypertriglyceridemia E78.1 [place] [address] [address] 2546 Oct, History of DVT (deep vein thrombosis) Z86.718 [place] [address] [place] [address] 53984 2546 Oct, [place] [address] [place] [address] 92986- 2546 Sep, History of DVT (deep vein thrombosis) Z86.718 [facility] [address] [place] [address] 72192- 9221 Sep, long term care administrator (current) use of anticoagulants Z79.01 [facility] [id number] [place] [address] 98254- 8272 July, [facility] [id number] [place] [address] 41325- 0768 July, long term care administrator (current) use of anticoagulants Z79.01 [facility] [id number] [place] [address] 49768- 0189 July, long term care administrator (current) use of anticoagulants Z79.01 [place] [id number] [place] [address] 44951- 5481 Jun, USP (current) use of anticoagulants Z79.01 [facility] [id number] [place] [address] 57610 -4547 Jun, Coccyx pain M53.3 ; Encounter for therapeutic drug level monitoring Z51.81 and long term care administrator current use 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.01 [facility] [id number] [place] [address] 10300- 8549 May, Abnormal mammogram R92.8 [facility] [id number] [place] [address] 34280 -4876 May, [facility] [id number] [place] [address] 10188 -3800 May, Acute vaginitis N76.0 and Encounter for other screening for malignant neoplasm of breast Z12.39 [place] [id number] [place] [address] 42209- 2758 Apr, [facility] [id number] [place] [address] 18102- 1076 Apr, [facility] [id number] [place] [address] 38815- 5728 Apr, Peripheral edema R60.9 [facility] [id number] [place] [address] 69782 2546 Apr, USP (current) use of anticoagulants Z79.01 [facility] [id number] [place] [address] 27433 2546 Apr, Peripheral edema R60.9 and long term care administrator (current) use of anticoagulants Z79.01 [place] [id number] [place] [address] 65361 2546 Apr, USP (current) use of anticoagulants Z79.01 [place] [id number] [place] [address] 06793 2546 Apr, [place] [id number] [place] [address] 74587 2546 Apr, USP (current) use of anticoagulants Z79.01 [place] [id number] [place] [address] 19294 2546 Apr, Peripheral edema R60.9 [place] [id number] [place] [address] 74079 2546 Mar, long term care administrator (current) use of anticoagulants Z79.01 [place] [id number] [place] [address] 55625 2546 Mar, long term care administrator (current) use of anticoagulants Z79.01 and Hypertriglyceridemia E78.1 [place] [address] [place] [address] 86920 2546 Mar, USP (current) use of anticoagulants Z79.01 [place] [id number] [place] [address] 49818 2546 Mar, long term care administrator (current) use of anticoagulants Z79.01 [place] [id number] [place] [address] 35363 2546 Mar, [place] [address] [place] [address]- 5923 Mar, long term care administrator (current) use of anticoagulants Z79.01 ; Hypertriglyceridemia E78.1 ; Personal history of venous thrombosis and embolism Z86.718 and Lump R22.9 [place] [address] [place] [address] 96259- 1675 Mar, Personal history of venous thrombosis and embolism Z86.718 [place] [id number] [place] [address] 35752- 6800 Mar, Personal history of venous thrombosis and embolism Z86.718 [place] [id number] [place] [address] 90657- 5408 Mar, [place] [id number] [place] [address] 81475- 2038 Dec, Personal history of venous thrombosis and embolism Z86.718 [place] [id number] [place] [address] 48167- 7297 Dec, Personal history of venous thrombosis and embolism V12.51 [place] [id number] [place] [address] 65084- 8796 Nov, Personal history of venous thrombosis and embolism V12.51 [place] [address] [place] [address] 51174- 9954 Nov, Personal history of venous thrombosis and embolism V12.51 [place] [address] [place] [address] 67833- 9770 Nov, Personal history of venous thrombosis and embolism V12.51 [place] [address] [place] [address] 89819- 6683 Nov, Personal history of venous thrombosis and embolism V12.51 [place] [address] [place] [address] 76811- 6615 Nov, [place] [id number] [place] [address] 79338- 8575 Oct, Dysuria 788.1 [facility] [address] [address]- 4693 Oct, Personal history of venous thrombosis and embolism V12.51 [facility] [address] [address]- 3184 Oct, [facility] [address] [address]- 6201 Oct, Personal history of venous thrombosis and embolism V12.51 [facility] [address] [place] [address] 59096- 7639 Sep, Personal history of venous thrombosis and embolism V12.51 [facility] [address] [place] [address] 43103- 6178 Sep, Personal history of venous thrombosis and embolism V12.51 [facility] [address] [place] [address] 86505- 6898 Aug, Personal history of venous thrombosis and embolism V12.51 [facility] [address] [address]- 4185 Aug, Personal history of venous thrombosis and embolism V12.51 [facility] [address] [address]- 8782 Aug, Personal history of venous thrombosis and embolism V12.51 [facility] [address] [address]- 2560 July, Generalized anxiety disorder 300.02 ; Abdominal pain, left lower quadrant 789.04 and Personal history of venous thrombosis and embolism V12.51 [facility] [address] [address]- 4500 Jun, [facility] [address] [address]- 1826 Jun, [facility] [address] [address]- 1593 May, [facility] [place] [facility] [address] [id number] [place] [address]- 7785 May, [facility] [place] [facility] [address] [id number] [place] [address]- 3691 May, [facility] [place] [facility] [address] [id number] [place] [address]- 3635 May, [facility] [place] [facility] [address] [id number] [place] [address]- 8222 May, [facility] [place] [facility] [address] [id number] [place] [address]- 1202 May, [facility] [place] [facility] [address] [id number] [place] [address]- 3488 May, [facility] [place] [facility] [address] [facility] [id number] [place] [address]- 2512 May, [facility] [place] [facility] [address] [id number] [place] [address]- 1292 Apr, [facility] [place] [facility] [address] [id number] [place] [address]- 6237 Apr, [facility] [place] [facility] [address] [facility] [id number] [place] [address]- 9623 Apr, [facility] [place] [facility] [address] [facility] [id number] [place] [address]- 5585 Apr, [facility] [place] [facility] [address] [id number] [address]- 7946 Apr, [facility] [place] [facility] [address] [id number] [place] [address]- 5139 Mar, [facility] [place] [facility] [address] [id number] [place] [address]- 9838 Mar, [facility] [place] [facility] [address] [facility] [id number] [address]- 2482 Mar, [facility] [place] [facility] [address] [id number] [place] [address]- 5643 Mar, [facility] [place] [facility] [address] [id number] [place] [address]- 5731 Mar, [facility] [place] [facility] [address] [id number] [place] [address]- 6197 Mar, [facility] [place] [facility] [address] [id number] [place] [address]- 0229 Feb, [facility] [place] [facility] [address] [id number] [place] [address]- 1587 Feb, [facility] [place] [facility] [address] [id number] [place] [address]- 8112 Feb, [facility] [place] [facility] [address] [id number] [place] [address]- 5585 Feb, [facility] [place] [facility] [address] [facility] [id number] [place] [address]- 5043 Feb, [facility] [place] [facility] [address] [id number] [place] [address]- 7766 Feb, [facility] [place] [facility] [address] [id number] [place] [address]- 5014 Feb, [facility] [place] [facility] [address] [id number] [place] [address]- 1625 Feb, [facility] [place] [facility] [address] [id number] [place] [address]- 8966 Feb, [facility] [place] [facility] [address] [id number] [place] [address]- 7121 Feb, [facility] [place] [facility] [address] [id number] [place] [address]- 3715 Jan, [facility] [place] [facility] [address] [id number] [place] [address]- 1748 Jan, [facility] [place] [facility] [address] [facility] [id number] [place] [address]- 9043 Jan, [facility] [place] [facility] [address] [id number] [place] [address] Jan, [facility] [place] [facility] [address] [id number] [place] [address] Jan, [facility] [place] [facility] [address] [id number] [place] [address] Jan, [facility] [place] [facility] [address] [id number] [place] [address] Jan, [facility] [place] [facility] [address] [id number] [place] [address] Jan, [facility] [place] [facility] [address] [id number] [place] [address] Jan, [facility] [place] [facility] [address] [id number] [place] [address] Jan, [facility] [place] [facility] [address] [id number] [place] [address] Dec, [facility] [place] [facility] [address] [id number] [place] [address] Dec, [facility] [place] [facility] [address] [id number] [place] [address] Dec, [facility] [place] [facility] [address] [id number] [place] [address]- [address] Dec, [facility] [place] [facility] [address] [id number] [place] [address] Dec, [facility] [place] [facility] [address] [id number] [place] [address] Dec, [facility] [place] [facility] [address] [id number] [place] [address] Dec, [facility] [place] [facility] [address] [id number] [place] [address]- [address] Dec, [facility] [place] [facility] [address] [id number] [place] [address]- [address] Dec, [facility] [place] [facility] [address] [id number] [place] [address]- [address] Dec, [facility] [place] [facility] [address] [id number] [place] [address]- [address] Dec, [facility] [place] [facility] [address] [id number] [place] [address]- [address] Dec, [facility] [place] [facility] [address] [id number] [place] [address]- [address] Dec, [facility] [place] [facility] [address] [id number] [place] [address]- [address] Dec, [facility] [place] [facility] [address] [id number] [place] [address]- [address] Dec, [facility] [place] [facility] [address] [id number] [place] [address]- [address] 30 Nov, 2013 [facility] [place] [facility] [address] [id number] [place] [address] 30 Nov, 2013 [facility] [place] [facility] [address] [id number] [place] [address] 5[address] 26 Nov, 2013 [facility] [place] [facility] [address] [id number] [place] [address] 8025 26 Nov, 2013 [facility] [place] [facility] [address] [id number] [place] [address] 24 Sep, 2013 [facility] [place] [facility] [address] [id number] [place] [address] 40[address] 24 Sep, 2013 [facility] [place] [facility] [address] [id number] [place] [address]- 1513 23 Sep, 2013 [facility] [place] [facility] [address] [id number] [place] [address]- 4146 23 Nov, 2013 [facility] [place] [facility] [address] [id number] [place] [address] 6571 18 Nov, 2013 [facility] [place] [facility] [address] [id number] [place] [address] 7410 18 Nov, 2013 [facility] [place] [facility] [address] [id number] [place] [address]- 9416 17 Nov, 2013 [facility] [place] [facility] [address] [id number] [place] [address] 4446 17 Nov, 2013 [facility] [place] [facility] [address] [id number] [place] [address]- 8706 11 Nov, 2013 [facility] [place] [facility] [address] [id number] [place] [address] 2546 11 Nov, 2013 [facility] [place] [facility] [address] [id number] [place] [address] 9793 10 Nov, 2013 [facility] [place] [facility] [address] [id number] [place] [address]- 7112 10 Nov, 2013 [facility] [place] [facility] [address] [id number] [place] [address]- 2906 08 Nov, 2013 [facility] [place] [facility] [address] [id number] [place] [address]- 6666 08 Nov, 2013 [facility] [place] [facility] [address] [id number] [place] [address]- 4512 Sep, 2013 [facility] [place] [facility] [address] [id number] [place] [address]- 7226 Sep, [facility] [place] [facility] [address] [id number] [place] [address]- 9544 Sep, 2013 [facility] [place] [facility] [address] [id number] [place] [address]- 5182 Sep, 2013 [facility] [place] [facility] [address] [id number] [place] [address]- 2139 Sep, [facility] [place] [facility] [address] [id number] [place] [address]- 0246 Sep, 2013 [facility] [place] [facility] [address] [id number] [place] [address]- 2291 Aug, [facility] [place] [facility] [address] [id number] [place] [address]- 7922 Aug, [facility] [place] [facility] [address] [id number] [place] [address]- 5629 Aug, [facility] [place] [facility] [address] [id number] [place] [address]- 6661 Aug, [facility] [place] [facility] [address] [id number] [place] [address]- 3517 Aug, [facility] [place] [facility] [address] [id number] [place] [address]- 6016 Aug, [facility] [place] [facility] [address] [id number] [place] [address]- 5361 Aug, [facility] [place] [facility] [address] [id number] [place] [address]- 4709 Aug, [facility] [place] [facility] [address] [id number] [place] [address]- 9203 Aug, [facility] [place] [facility] [address] [id number] [place] [address]- 8174 Aug, [facility] [place] [facility] [address] [id number] [place] [address]- 4426 Aug, [facility] [place] [facility] [address] [id number] [place] [address]- 0189 July, [facility] [place] [facility] [address] [id number] [place] [address]- 9758 July, [facility] [place] [facility] [address] [id number] [place] [address]- 0742 Jun, [facility] [place] [facility] [address] [id number] [place] [address]- 2044 Jun, [facility] [place] [facility] [address] [id number] [place] [address]- 8936 Jun, [facility] [place] [facility] [address] [id number] [place] [address]- 0201 18 Jun, 2013 [facility] [place] [facility] [address] [id number] [place] [address]- 9509 18 Jun, 2013 [facility] [place] [facility] [address] [id number] [place] [address]- 3432 18 Jun, 2013 [facility] [place] [facility] [address] [id number] [place] [address]- 1088 15 Jun, 2013 [facility] [place] [facility] [address] [id number] [place] [address]- 8738 15 Jun, 2013 [facility] [place] [facility] [address] [id number] [place] [address]- 5180 Jun, [facility] [place] [facility] [address] [id number] [place] [address]- 3782 Jun, [facility] [place] [facility] [address] [id number] [place] [address]- 8242 Jun, [facility] [place] [facility] [address] [id number] [place] [address]- 4706 Jun, [facility] [place] [facility] [address] [id number] [place] [address]- 4113 May, [facility] [place] [facility] [address] [id number] [place] [address]- 0757 May, [facility] [place] [facility] [address] [id number] [place] [address]- 5537 May, [facility] [place] [facility] [address] [id number] [place] [address]- 7127 May, [facility] [place] [facility] [address] [id number] [place] [address]- 2480 May, [facility] [place] [facility] [address] [id number] [place] [address]- 8593 19 May, 2013 [facility] [place] [facility] [address] [id number] [place] [address]- 3549 May, [facility] [place] [facility] [address] [id number] [place] [address]- 8531 May, [facility] [place] [facility] [address] [id number] [place] [address]- 1399 May, [facility] [place] [facility] [address] [id number] [place] [address]- 8505 May, [facility] [place] [facility] [address] [id number] [place] [address]- 0860 May, [facility] [place] [facility] [address] [id number] [place] [address]- 3844 May, [facility] [place] [facility] [address] [id number] [place] [address]- 6415 Apr, [facility] [place] [facility] [address] [facility] [id number] [place] [address]- 1116 Apr, [facility] [place] [facility] [address] [id number] [place] [address]- 1689 Apr, [facility] [place] [facility] [address] [id number] [place] [address]- 9204 Apr, [facility] [place] [facility] [address] [facility] [id number] [place] [address]- 1703 Apr, [facility] [place] [facility] [address] [facility] [id number] [place] [address]- 8671 Apr, [facility] [place] [facility] [address] [facility] [id number] [place] [address]- 6691 Apr, [facility] [place] [facility] [address] [id number] [place] [address]- 0655 Apr, [facility] [place] [facility] [address] [id number] [place] [address]- 5927 Apr, [facility] [place] [facility] [address] [facility] [id number] [place] [address]- 6756 Apr, [facility] [place] [facility] [address] [facility] [id number] [place] [address]- 9226 Apr, [facility] [place] [facility] [address] [id number] [place] [address]- 3716 Apr, [facility] [place] [facility] [address] [id number] [place] [address]- 6641 Apr, 2013 [facility] [place] [facility] [address] [id number] [place] [address]- 6636 Apr, [facility] [place] [facility] [address] [id number] [place] [address]- 0104 Apr, [facility] [place] [facility] [address] [id number] [place] [address]- 0371 Apr, [facility] [place] [facility] [address] [id number] [place] [address]- 8288 Apr, [facility] [place] [facility] [address] [facility] [id number] [place] [address]- 1172 Jan, [facility] [place] [facility] [address] [id number] [place] [address]- 2525 Jan, [facility] [place] [facility] [address] [facility] [id number] [place] [address]- 0284 Jan, [facility] [place] [facility] [address] [facility] [id number] [place] [address]- 7924 Jan, [facility] [place] [facility] [address] [id number] [place] [address]- 8828 Jan, [facility] [place] [facility] [address] [id number] [place] [address]- 4076 Jan, [facility] [place] [facility] [address] [id number] [place] [address]- 4012 Jan, [facility] [place] [facility] [address] [facility] [id number] [place] [address]- 5493 Dec, [facility] [place] [facility] [address] [id number] [place] [address]- 6475 Dec, [facility] [place] [facility] [address] [id number] [place] [address]- 4022 Dec, [facility] [place] [facility] [address] [id number] [place] [address]- 2327 Nov, [facility] [place] [facility] [address] [id number] [place] [address]- 1243 Nov, [facility] [place] [facility] [address] [id number] [place] [address]- 8030 Nov, [facility] [place] [facility] [address] [id number] [place] [address]- 3999 Nov, [facility] [place] [facility] [address] [id number] [place] [address]- 2034 Oct, [facility] [place] [facility] [address] [id number] [place] [address]- 6705 Oct, [facility] [place] [facility] [address] [id number] [place] [address]- 4198 Oct, [facility] [place] [facility] [address] [id number] [place] [address]- 8105 Oct, [facility] [place] [facility] [address] [id number] [place] [address]- 5366 Oct, [facility] [place] [facility] [address] [id number] [place] [address]- 2223 Sep, [facility] [place] [facility] [address] [id number] [place] [address]- 4476 Sep, [facility] [place] [facility] [address] [id number] [place] [address]- 8532 Sep, [facility] [place] [facility] [address] [id number] [place] [address]- 9938 Sep, [facility] [place] [facility] [address] [id number] [place] [address]- 4601 Sep, [facility] [place] [facility] [address] [id number] [place] [address]- 2546 Sep, [facility] [address] [id number] [place] [address]- 2968 Sep, [facility] [address] [id number] [place] [address]- 6539 Aug, [facility] [address] [id number] [place] [address]- 1209 Aug, [facility] [place] [facility] [address] [id number] [place] [address]- 7198 July, [facility] [address] [id number] [place] [address]- 6192 Jun, [facility] [place] [facility] [address] [id number] [place] [address]- 5793 Jun, [facility] [address] [id number] [place] [address]- 2273 Jun, [facility] [place] [facility] [address] [id number] [place] [address]- 3340 Apr, [facility] [address] [id number] [place] [address]- 6844 Apr, [facility] [place] [facility] [address] [id number] [place] [address]- 2703 Apr, [facility] [address] [id number] [place] [address]- 2226 Mar, [facility] [place] [facility] [address] [id number] [place] [address]- 9037 Mar, [facility] [place] [facility] [address] [id number] [place] [address]- 7696 Mar, [facility] [place] [facility] [address] [id number] [place] [address]- 3023 Mar, [facility] [place] [facility] [address] [id number] [place] [address]- 6226 Mar, [facility] [place] [facility] [address] [id number] [place] [address]- 1859 14 Feb, 2012 [facility] [place] [facility] [address] [id number] [place] [address]- 3690 14 Feb, 2012 [facility] [place] [facility] [address] [id number] [place] [address]- 3836 13 Jan, 2012 [facility] [place] [facility] [address] [id number] [place] [address]- 5801 13 Jan, 2012 [facility] [place] [facility] [address] [id number] [place] [address]- 5641 13 Jan, 2012 [facility] [place] [facility] [address] [id number] [place] [address]- 3616 13 Jan, 2012 [facility] [place] [facility] [address] [id number] [place] [address]- 2097 07 Jan, 2012 [facility] [place] [facility] [address] [id number] [place] [address]- 6552 Jan, [facility] [place] [facility] [address] [id number] [place] [address]- 6439 06 Jan, 2012 [facility] [place] [facility] [address] [id number] [place] [address]- 4812 31 Dec, 2011 [facility] [place] [facility] [address] [facility] [id number] [place] [address]- 3610 31 Dec, 2011 [facility] [place] [facility] [address] [id number] [place] [address]- 3938 30 Dec, 2011 [facility] [place] [facility] [address] [id number] [place] [address]- 8735 30 Dec, 2011 [facility] [place] [facility] [address] [id number] [place] [address]- 4176 30 Dec, 2011 [facility] [place] [facility] [address] [facility] [id number] [place] [address]- 6176 30 Dec, 2011 [facility] [place] [facility] [address] [id number] [place] [address]- 8398 Dec, [facility] [place] [facility] [address] [id number] [place] [address]- 0151 Dec, [facility] [place] [facility] [address] [id number] [place] [address]- 8108 Dec, [facility] [place] [facility] [address] [id number] [place] [address]- 1726 Dec, [facility] [place] [facility] [address] [id number] [place] [address]- 1938 Oct, [facility] [place] [facility] [address] [id number] [place] [address]- 9992 Oct, [facility] [place] [facility] [address] [id number] [place] [address]- 3653 Aug, [facility] [place] [facility] [address] [id number] [place] [address]- 3677 Aug, [facility] [place] [facility] [address] [id number] [place] [address]- 0170 July, [facility] [place] [facility] [address] [id number] [place] [address]- 4359 Jun, [facility] [place] [facility] [address] [id number] [place] [address]- 1483 Jun, [facility] [place] [facility] [address] [id number] [place] [address]- 4905 May, [facility] [place] [facility] [address] [id number] [place] [address]- 0488 Apr, [facility] [place] [facility] [address] [id number] [place] [address]- 1470 Apr, [facility] [place] [facility] [address] [id number] [place] [address]- 6476 Mar, [facility] [place] [facility] [address] [id number] [place] [address]- 0926 Mar, [facility] [place] [facility] [address] [id number] [place] [address]- 4306 19 Feb, 2011 [facility] [address] [id number] [place] [address]- 9866 15 Feb, 2011 [facility] [place] [facility] [address] [id number] [place] [address] 2546 13 Feb, 2011 [facility] [address] [id number] [place] [address]- 4776 13 Feb, 2011 [facility] [place] [facility] [address] [id number] [place] [address] 2543 Jan, [facility] [address] [id number] [place] [address]- 7922 17 Dec, 2010 [facility] [address] [id number] [place] [address]- 4426 08 Feb, 2010 [facility] [address] [id number] [place] [address]- 0569 02 Feb, 2010 [facility] [address] [id number] [place] [address]- 8848 Feb, [facility] [place] [facility] [address] [id number] [place] [address]- 6420 Feb, [facility] [address] [facility] [id number] [place] [address]- 5712 15 Dec, 2009 [facility] [place] [facility] [address] [id number] [place] [address]- 6926 15 Dec, 2009 [facility] [place] [facility] [address] [id number] [place] [address]- 2321 Oct, [facility] [place] [facility] [address] [id number] [place] [address]- 8239 15 Jun, 2009 [facility] [place] [facility] [address] [id number] [place] [address] 2542 Feb, [facility] [place] [facility] [address] [id number] [place] [address]- 7887 Feb, [facility] [address] [facility] [id number] [place] [address]- 9126 Feb, [facility] [address] [facility] [id number] [place] [address]- 2356 Dec, IMMUNIZATIONS No Known Immunizations SOCIAL HISTORY Never Assessed REASON FOR VISIT Lab (walk-in)--[facility] PLAN OF CARE VITAL SIGNS MEDICATIONS Unknown Medications RESULTS Name Result Date Reference Range INR (IN HOUSE) 2017-05-12 INR 4.4 1.10 - 3.30 PREVIOUS INR 5.5 CURRENT COUMADIN DOSE 5 mg qd NEW COUMADIN DOSE See notes Lot # [id number] Exp date 01/2018 PROCEDURES Procedure Date Ordered Result Body Site PROTHROMBIN TIME May 12, 2017 INSTRUCTIONS MEDICATIONS ADMINISTERED No Known Medications [...]
--- OUTSIDE RECORDS SUMMARY | 2018-08-02 09:07 | XMS REPORT ---
Author Author KIANA ASHLEY [facility] Address [address] [place] [address] Care Team Providers Care Blue Split Trimmer Name Role Phone ELMO BRUNOY Unavailable PROBLEMS Type Condition ICD9-CM Code BBL24-IJ Code Onset Dates Condition Status SNOMED Code Problem Generalized anxiety disorder F41.1 Active 182426652 Problem 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 Active 302455798 Problem History of DVT (deep vein thrombosis) Z86.718 Active 761451670 Problem Factor V Leiden D68.51 Active 648302644 Problem Hypertriglyceridemia E78.1 Active 918884055 Problem nursing home (current) use of anticoagulants Z79.01 Active 962871176 Problem Thyroid nodule E04.1 Active 321050164 Problem Excessive daytime sleepiness G47.19 Active 946777075783 Problem Peripheral edema R60.9 Active 479665225 Problem Pelvic pain R10.2 Active 65508130 Problem Gastroesophageal reflux disease, esophagitis presence not specified K21.9 Active 753207554 Problem Presence of IVC filter Z95.828 Active 021383704 ALLERGIES No Information ENCOUNTERS Encounter Location Date Diagnosis [place] [address] [address] Aug, [facility] [id number] [place] [address] 33363- 0999 Aug, [facility] [id number] [place] [address] 04778- 7602 Aug, Acute pain of left shoulder M25.512 and Thyroid nodule E04.1 [facility] [id number] [place] [address] 82157- 5960 July, Superior glenoid labrum lesion of left shoulder, subsequent encounter S43.432D [place] [id number] [place] [address] 06320- 7354 Jun, History of DVT (deep vein thrombosis) Z86.718 [facility] [id number] [place] [address] 41470- 5837 Jun, History of DVT (deep vein thrombosis) Z86.718 [place] [id number] [place] [address] 37277- 7215 Jun, Impingement syndrome, shoulder, left M75.42 [place] [id number] [place] [address] 56111- 4796 May, Subacromial bursitis of left shoulder joint M75.52 [place] [id number] [place] [address] 52237- 4062 May, [place] [id number] [place] [address] 30682- 5294 May, Hypertriglyceridemia E78.1 ; nursing home (current) use of anticoagulants Z79.01 and Excessive daytime sleepiness G47.19 [place] [id number] [place] [address] 35163- 6222 May, History of DVT (deep vein thrombosis) Z86.718 ; Generalized anxiety disorder F41.1 ; Hypertriglyceridemia E78.1 ; 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 ; Subacromial bursitis of left shoulder joint M75.52 and Excessive daytime sleepiness G47.19 [place] [id number] [place] [address] 92624- 1036 May, [place] [id number] [place] [address] 54790- 9781 May, nursing home (current) use of anticoagulants Z79.01 [place] [id number] [place] [address] 14514- 1198 Apr, nursing home (current) use of anticoagulants Z79.01 [place] [id number] [place] [address] 91164- 1911 Apr, nursing home (current) use of anticoagulants Z79.01 [facility] [id number] [place] [address] 17629 2546 Apr, nursing home (current) use of anticoagulants Z79.01 [facility] [id number] [place] [address] 56709 2546 Apr, [facility] [address] [address] 2546 Apr, nursing home (current) use of anticoagulants Z79.01 [facility] [id number] [place] [address] 97513 2546 13 Apr, 2017 nursing home (current) use of anticoagulants Z79.01 [facility] [id number] [place] [address] 93135 2546 Apr, nursing home (current) use of anticoagulants Z79.01 [facility] [id number] [place] [address] 30305 2546 Apr, nursing home (current) use of anticoagulants Z79.01 [facility] [id number] [place] [address] 77350 2546 Apr, 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 [facility] [id number] [place] [address] 77270 2546 Apr, nursing home (current) use of anticoagulants Z79.01 [facility] [id number] [place] [address] 73948 2546 Mar, nursing home (current) use of anticoagulants Z79.01 [facility] [id number] [place] [address] 07821 2546 Mar, [facility] [id number] [place] [address] 18000 2546 Mar, 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 [facility] [id number] [place] [address] [id number] Jan, Dental examination Z01.20 [facility] [address] [place] [address] [id number] Jan, [facility] [id number] [place] [address] 50612- 2036 Jan, nursing home (current) use of anticoagulants Z79.01 [facility] [id number] [place] [address] 87876- 8037 Jan, History of DVT (deep vein thrombosis) Z86.718 [facility] [id number] [place] [address] 35321- 2990 Jan, Generalized anxiety disorder F41.1 and Peripheral edema R60.9 [facility] [id number] [place] [address] 46201- 1084 Nov, History of DVT (deep vein thrombosis) Z86.718 [facility] [id number] [place] [address] 94848- 5762 Nov, 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 [facility] [id number] [place] [address] 27084 -1091 Nov, Acute non-recurrent maxillary sinusitis J01.00 [facility] [id number] [place] [address] 31295- 0467 Oct, 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 [facility] [id number] [place] [address] 08663- 9054 Oct, Personal history of venous thrombosis and embolism Z86.718 [facility] [id number] [place] [address] 14615- 4401 Sep, [facility] [id number] [place] [address] 32497- 7630 Sep, Personal history of venous thrombosis and embolism Z86.718 [facility] [id number] [place] [address] 98604- 5845 Sep, nursing home (current) use of anticoagulants Z79.01 [place] [address] [place] [address] [id number] [place] [address] 07121- 9296 Sep, nursing home (current) use of anticoagulants Z79.01 [place] [address] [place] [address] [id number] [place] [address] 80686- 5612 Sep, Generalized anxiety disorder F41.1 and History of DVT (deep vein thrombosis) Z86.718 [place] [id number] [place] [address] 29770- 7497 Aug, History of DVT (deep vein thrombosis) Z86.718 ; Generalized anxiety disorder F41.1 ; 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 ; Pelvic pain R10.2 ; Hypertriglyceridemia E78.1 ; Excessive daytime sleepiness G47.19 ; Colon cancer screening Z12.11 ; Screening for breast cancer Z12.39 ; Peripheral edema R60.9 and Gastroesophageal reflux disease, esophagitis presence not specified K21.9 [place] [id number] [place] [address] 54056- 6038 Aug, [place] [id number] [place] [address] 43691- 0029 July, [place] [address] [id number] [place] [address] 80286- 0555 July, History of DVT (deep vein thrombosis) Z86.718 [place] [id number] [place] [address] 18464- 3993 Jun, Generalized anxiety disorder F41.1 [place] [address] [id number] [place] [address] 95184- 6427 Jun, History of DVT (deep vein thrombosis) Z86.718 [place] [id number] [place] [address] 59546- 5355 Jun, History of DVT (deep vein thrombosis) Z86.718 [place] [address] [place] [address]- 9421 Jun, History of DVT (deep vein thrombosis) Z86.718 [facility] [id number] [place] [address] 09681- 6904 Jun, History of DVT (deep vein thrombosis) Z86.718 [facility] [id number] [place] [address] 81957- 0120 May, History of DVT (deep vein thrombosis) Z86.718 [facility] [id number] [place] [address] 90843- 7099 May, 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 [place] [address] 26260- 1388 May, 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 [place] [id number] [place] [address] 29233- 2952 May, History of DVT (deep vein thrombosis) Z86.718 [facility] [id number] [place] [address] 55418 -8528 Apr, Bacterial conjunctivitis of left eye H10.9 and H/O motion sickness Z87.898 [facility] [address] [place] [address] 92970- 8825 Apr, History of DVT (deep vein thrombosis) Z86.718 [facility] [id number] [place] [address] 12713- 0188 Apr, History of DVT (deep vein thrombosis) Z86.718 [place] [id number] [place] [address] 85893- 2734 Apr, History of DVT (deep vein thrombosis) Z86.718 [facility] [id number] [place] [address] 43813- 9171 14 Apr, 2016 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 [facility] [address] [address]- 2620 Mar, [facility] [id number] [place] [address] 49197- 3056 Mar, nursing home (current) use of anticoagulants Z79.01 [facility] [id number] [place] [address] 78168 2546 Mar, Hypertriglyceridemia E78.1 and 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 [place] [id number] [place] [address] 62563 2546 Feb, nursing home (current) use of anticoagulants Z79.01 [place] [id number] [place] [address] 27661 2546 Feb, nursing home (current) use of anticoagulants Z79.01 [place] [id number] [place] [address] 08178- 4516 Feb, 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 [place] [id number] [place] [address] 41365 2546 Dec, [place] [id number] [place] [address] 25755- 0746 Nov, [place] [id number] [place] [address] 24001- 1696 Nov, History of DVT (deep vein thrombosis) Z86.718 ; Tremulousness R25.1 ; Generalized anxiety disorder F41.1 ; Peripheral edema R60.9 and Hypertriglyceridemia E78.1 [place] [address], [place] [address] 2546 Oct, History of DVT (deep vein thrombosis) Z86.718 [place] [id number] [place] [address] 57020 2546 Oct, [place] [id number] [place] [address] 42237- 2546 Sep, History of DVT (deep vein thrombosis) Z86.718 [facility] [address] [place] [address] 99924- 9143 Sep, 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 [facility] [id number] [place] [address] 62230- 6883 July, [facility] [id number] [place] [address] 13429- 6721 July, 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 [facility] [id number] [place] [address] 73586- 9281 July, 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 [place] [id number] [place] [address] 15262- 9353 Jun, nursing home (current) use of anticoagulants Z79.01 [facility] [id number] [place] [address] 98780 -4699 Jun, Coccyx pain M53.3 ; Encounter for therapeutic drug level monitoring Z51.81 and it 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 current use 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.01 [facility] [id number] [place] [address] 43419- 4852 May, Abnormal mammogram R92.8 [facility] [id number] [place] [address] 97582 -0061 May, [facility] [id number] [place] [address] 82693 -9835 May, Acute vaginitis N76.0 and Encounter for other screening for malignant neoplasm of breast Z12.39 [place] [id number] [place] [address] 76280- 9482 Apr, [facility] [id number] [place] [address] 81278- 7290 Apr, [facility] [id number] [place] [address] 30416- 2852 Apr, Peripheral edema R60.9 [facility] [id number] [place] [address] 27955 2546 Apr, nursing home (current) use of anticoagulants Z79.01 [facility] [id number] [place] [address] 33359 2546 Apr, Peripheral edema R60.9 and 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 [place] [id number] [place] [address] 01301 2546 Apr, nursing home (current) use of anticoagulants Z79.01 [place] [id number] [place] [address] 59616 2546 Apr, [place] [id number] [place] [address] 06635 2546 Apr, nursing home (current) use of anticoagulants Z79.01 [place] [id number] [place] [address] 10807 2546 Apr, Peripheral edema R60.9 [place] [id number] [place] [address] 48534 2546 Mar, 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 [place] [id number] [place] [address] 36719 2546 Mar, 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 and Hypertriglyceridemia E78.1 [place] [address] [place] [address] 18086 2546 Mar, nursing home (current) use of anticoagulants Z79.01 [place] [id number] [place] [address] 27512 2546 Mar, 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 [place] [id number] [place] [address] 72422 2546 Mar, [place] [address] [place] [address]- 2956 Mar, 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 ; Hypertriglyceridemia E78.1 ; Personal history of venous thrombosis and embolism Z86.718 and Lump R22.9 [place] [address] [place] [address] 42018- 4388 Mar, Personal history of venous thrombosis and embolism Z86.718 [place] [id number] [place] [address] 85124- 0060 Mar, Personal history of venous thrombosis and embolism Z86.718 [place] [id number] [place] [address] 31996- 7254 Mar, [place] [id number] [place] [address] 17576- 0009 Dec, Personal history of venous thrombosis and embolism Z86.718 [place] [id number] [place] [address] 64227- 0518 Dec, Personal history of venous thrombosis and embolism V12.51 [place] [id number] [place] [address] 64041- 2906 Nov, Personal history of venous thrombosis and embolism V12.51 [place] [address] [place] [address] 65941- 1735 Nov, Personal history of venous thrombosis and embolism V12.51 [place] [address] [place] [address] 21621- 3249 Nov, Personal history of venous thrombosis and embolism V12.51 [place] [address] [place] [address] 39477- 5405 Nov, Personal history of venous thrombosis and embolism V12.51 [place] [address] [place] [address] 52266- 0341 Nov, [place] [id number] [place] [address] 02010- 5500 Oct, Dysuria 788.1 [facility] [address] [address]- 9444 Oct, Personal history of venous thrombosis and embolism V12.51 [facility] [address] [address]- 1963 Oct, [facility] [address], [place] [address]- 7526 Oct, Personal history of venous thrombosis and embolism V12.51 [facility] [id number] [place] [address] 55708- 6733 Sep, Personal history of venous thrombosis and embolism V12.51 [facility] [address] [place] [address] 30259- 6402 Sep, Personal history of venous thrombosis and embolism V12.51 [facility] [address] [place] [address] 40511- 3187 Aug, Personal history of venous thrombosis and embolism V12.51 [facility] [address] [address]- 7254 Aug, Personal history of venous thrombosis and embolism V12.51 [facility] [address] [address]- 4105 Aug, Personal history of venous thrombosis and embolism V12.51 [facility] [address] [address]- 0237 July, Generalized anxiety disorder 300.02 ; Abdominal pain, left lower quadrant 789.04 and Personal history of venous thrombosis and embolism V12.51 [facility] [address] [address]- 4152 Jun, [facility] [address], [place] [address]- 5465 Jun, [facility] [address] [address]- 6739 May, [facility] [place] [facility] [address] [id number] [place] [address]- 3406 May, [facility] [place] [facility] [address] [id number] [place] [address]- 4387 May, [facility] [place] [facility] [address] [id number] [place] [address]- 0336 May, [facility] [place] [facility] [address] [id number] [place] [address]- 8513 May, [facility] [place] [facility] [address] [id number] [place] [address]- 5822 May, [facility] [place] [facility] [address] [id number] [place] [address]- 8044 May, [facility] [place] [facility] [address] [facility] [id number] [place] [address]- 1342 May, [facility] [place] [facility] [address] [id number] [place] [address]- 3483 Apr, [facility] [place] [facility] [address] [id number] [place] [address]- 4225 Apr, [facility] [place] [facility] [address] [facility] [id number] [place] [address]- 7102 Apr, [facility] [place] [facility] [address] [facility] [id number] [place] [address]- 5902 Apr, [facility] [place] [facility] [address] [id number] [address]- 3460 Apr, [facility] [place] [facility] [address] [id number] [place] [address]- 0402 Mar, [facility] [place] [facility] [address] [id number] [place] [address]- 9238 Mar, [facility] [place] [facility] [address] [facility] [id number] [address]- 8004 Mar, [facility] [place] [facility] [address] [id number] [place] [address]- 9173 Mar, [facility] [place] [facility] [address] [id number] [place] [address]- 1531 Mar, [facility] [place] [facility] [address] [id number] [place] [address]- 2048 Mar, [facility] [place] [facility] [address] [id number] [place] [address]- 0887 Feb, [facility] [place] [facility] [address] [id number] [place] [address]- 2354 Feb, [facility] [place] [facility] [address] [id number] [place] [address]- 5472 Feb, [facility] [place] [facility] [address] [id number] [place] [address]- 3927 Feb, [facility] [place] [facility] [address] [facility] [id number] [place] [address]- 1545 Feb, [facility] [place] [facility] [address] [id number] [place] [address]- 1407 Feb, [facility] [place] [facility] [address] [id number] [place] [address]- 1675 Feb, [facility] [place] [facility] [address] [id number] [place] [address]- 3676 Feb, [facility] [place] [facility] [address] [id number] [place] [address]- 0495 Feb, [facility] [place] [facility] [address] [id number] [place] [address]- 4991 Feb, [facility] [place] [facility] [address] [id number] [place] [address]- 3813 Jan, [facility] [place] [facility] [address] [id number] [place] [address]- 3330 Jan, [facility] [place] [facility] [address] [facility] [id number] [place] [address]- 4172 Jan, [facility] [place] [facility] [address] [id number] [place] [address]- 6283 Jan, [facility] [place] [facility] [address] [id number] [place] [address]- 6627 Jan, [facility] [place] [facility] [address] [id number] [place] [address] Jan, [facility] [place] [facility] [address] [id number] [place] [address] Jan, [facility] [place] [facility] [address] [id number] [place] [address] Jan, [facility] [place] [facility] [address] [id number] [place] [address] Jan, [facility] [place] [facility] [address] [id number] [place] [address] Jan, [facility] [place] [facility] [address] [id number] [place] [address] Dec, [facility] [place] [facility] [address] [id number] [place] [address] Dec, [facility] [place] [facility] [address] [id number] [place] [address] Dec, [facility] [place] [facility] [address] [id number] [place] [address] Dec, [facility] [place] [facility] [address] [id number] [place] [address] Dec, [facility] [place] [facility] [address] [id number] [place] [address] Dec, [facility] [place] [facility] [address] [id number] [place] [address] Dec, [facility] [place] [facility] [address] [id number] [place] [address] Dec, [facility] [place] [facility] [address] [id number] [place] [address] Dec, [facility] [place] [facility] [address] [id number] [place] [address] Dec, [facility] [place] [facility] [address] [id number] [place] [address] Dec, [facility] [place] [facility] [address] [id number] [place] [address] Dec, [facility] [place] [facility] [address] [id number] [place] [address] Dec, [facility] [place] [facility] [address] [id number] [place] [address] Dec, [facility] [place] [facility] [address] [id number] [place] [address] Dec, [facility] [place] [facility] [address] [id number] [place] [address] 30 Nov, 2013 [facility] [place] [facility] [address] [id number] [place] [address] 30 Nov, 2013 [facility] [place] [facility] [address] [id number] [place] [address] 26 Nov, 2013 [facility] [place] [facility] [address] [id number] [place] [address] 26 Nov, 2013 [facility] [place] [facility] [address] [id number] [address] 24 Sep, 2013 [facility] [place] [facility] [address] [id number], [place] [address] 24 Sep, 2013 [facility] [place] [facility] [address] [id number] [place] [address] 23 Sep, 2013 [facility] [place] [facility] [address] [id number] [place] [address] 23 Nov, 2013 [facility] [place] [facility] [address] [address] [id number] [place] [address] 18 Nov, 2013 [facility] [place] [facility] [address] [id number] [place] [address] 2457 18 Nov, 2013 [facility] [place] [facility] [address] [id number] [place] [address] 1466 17 Nov, 2013 [facility] [place] [facility] [address] [id number] [place] [address] 9516 17 Nov, 2013 [facility] [place] [facility] [address] [id number] [place] [address] 8666 11 Nov, 2013 [facility] [place] [facility] [address] [id number] [place] [address] 2546 11 Nov, 2013 [facility] [place] [facility] [address] [id number] [place] [address] 9493 10 Nov, 2013 [facility] [place] [facility] [address] [id number] [place] [address] 3393 10 Nov, 2013 [facility] [place] [facility] [address] [id number] [place] [address] 0877 08 Nov, 2013 [facility] [place] [facility] [address] [id number] [place] [address] 0146 08 Nov, 2013 [facility] [place] [facility] [address] [id number] [place] [address] 8747 Sep, 2013 [facility] [place] [facility] [address] [id number] [place] [address] 56[address] Sep, [facility] [place] [facility] [address] [id number] [place] [address]- 1722 Sep, 2013 [facility] [place] [facility] [address] [id number] [place] [address]- 5772 Sep, 2013 [facility] [place] [facility] [address] [id number] [place] [address]- 7526 Sep, [facility] [place] [facility] [address] [id number] [place] [address]- 0089 Sep, 2013 [facility] [place] [facility] [address] [id number] [place] [address] 4591 Aug, [facility] [place] [facility] [address] [id number] [place] [address]- 8988 Aug, [facility] [place] [facility] [address] [id number] [place] [address]- 7583 Aug, [facility] [place] [facility] [address] [id number] [place] [address]- 1567 Aug, [facility] [place] [facility] [address] [id number] [place] [address] 2176 Aug, [facility] [place] [facility] [address] [id number] [place] [address]- 8487 Aug, [facility] [place] [facility] [address] [id number] [place] [address]- 5908 Aug, [facility] [place] [facility] [address] [id number] [place] [address]- 1741 Aug, [facility] [place] [facility] [address] [id number] [place] [address]- 0236 Aug, [facility] [place] [facility] [address] [id number] [place] [address]- 4217 Aug, [facility] [place] [facility] [address] [id number] [place] [address]- 0061 Aug, [facility] [place] [facility] [address] [id number] [place] [address]- 0761 July, [facility] [place] [facility] [address] [id number] [place] [address]- 7415 July, [facility] [place] [facility] [address] [id number] [place] [address]- 8300 Jun, [facility] [place] [facility] [address] [id number] [place] [address]- 9499 Jun, [facility] [place] [facility] [address] [id number] [place] [address]- 8556 Jun, [facility] [place] [facility] [address] [id number] [place] [address]- 8078 18 Jun, 2013 [facility] [place] [facility] [address] [id number] [place] [address]- 5093 18 Jun, 2013 [facility] [place] [facility] [address] [id number] [place] [address]- 5077 18 Jun, 2013 [facility] [place] [facility] [address] [id number] [place] [address]- 1055 15 Jun, 2013 [facility] [place] [facility] [address] [id number] [place] [address]- 1210 15 Jun, 2013 [facility] [place] [facility] [address] [id number] [place] [address]- 1616 Jun, [facility] [place] [facility] [address] [id number] [place] [address]- 7146 Jun, [facility] [place] [facility] [address] [id number] [place] [address]- 1414 Jun, [facility] [place] [facility] [address] [id number] [place] [address]- 5929 Jun, [facility] [place] [facility] [address] [id number] [place] [address]- 4217 May, [facility] [place] [facility] [address] [id number] [place] [address]- 2576 May, [facility] [place] [facility] [address] [id number] [place] [address]- 5203 May, [facility] [place] [facility] [address] [id number] [place] [address]- 3332 May, [facility] [place] [facility] [address] [id number] [place] [address]- 7988 May, [facility] [place] [facility] [address] [id number] [place] [address]- 8067 19 May, 2013 [facility] [place] [facility] [address] [id number] [place] [address]- 2892 May, [facility] [place] [facility] [address] [id number] [place] [address]- 3934 May, [facility] [place] [facility] [address] [id number] [place] [address]- 0914 May, [facility] [place] [facility] [address] [id number] [place] [address]- 5964 May, [facility] [place] [facility] [address] [id number] [place] [address]- 4273 May, [facility] [place] [facility] [address] [id number] [place] [address]- 3890 May, [facility] [place] [facility] [address] [id number] [place] [address]- 6161 Apr, [facility] [place] [facility] [address] [facility] [id number] [place] [address]- 1806 Apr, [facility] [place] [facility] [address] [id number] [place] [address]- 7766 Apr, [facility] [place] [facility] [address] [id number] [place] [address]- 0368 Apr, [facility] [place] [facility] [address] [facility] [id number] [place] [address]- 7310 Apr, [facility] [place] [facility] [address] [facility] [id number] [place] [address]- 6732 Apr, [facility] [place] [facility] [address] [facility] [id number] [place] [address]- 4853 Apr, [facility] [place] [facility] [address] [id number] [place] [address]- 3842 Apr, [facility] [place] [facility] [address] [id number] [place] [address]- 5909 Apr, [facility] [place] [facility] [address] [facility] [id number] [place] [address]- 9090 Apr, [facility] [place] [facility] [address] [facility] [id number] [place] [address]- 6963 Apr, [facility] [place] [facility] [address] [id number] [place] [address]- 1716 Apr, [facility] [place] [facility] [address] [id number] [place] [address]- 8373 Apr, 2013 [facility] [place] [facility] [address] [id number] [place] [address]- 0206 Apr, [facility] [place] [facility] [address] [id number] [place] [address]- 8816 Apr, [facility] [place] [facility] [address] [id number] [place] [address]- 2919 Apr, [facility] [place] [facility] [address] [id number] [place] [address]- 2609 Apr, [facility] [place] [facility] [address] [facility] [id number] [place] [address]- 9324 Jan, [facility] [place] [facility] [address] [id number] [place] [address]- 4362 Jan, [facility] [place] [facility] [address] [facility] [id number] [place] [address]- 3616 Jan, [facility] [place] [facility] [address] [facility] [id number] [place] [address]- 2647 Jan, [facility] [place] [facility] [address] [id number] [place] [address]- 2252 Jan, [facility] [place] [facility] [address] [id number] [place] [address]- 8006 Jan, [facility] [place] [facility] [address] [id number] [place] [address]- 9941 Jan, [facility] [place] [facility] [address] [facility] [id number] [place] [address]- 3111 Dec, [facility] [place] [facility] [address] [id number] [place] [address]- [address] Dec, [facility] [place] [facility] [address] [id number] [place] [address]- 5717 Dec, [facility] [place] [facility] [address] [id number] [place] [address]- 0341 Nov, [facility] [place] [facility] [address] [id number] [place] [address]- 4820 Nov, [facility] [place] [facility] [address] [id number] [place] [address]- 7880 Nov, [facility] [place] [facility] [address] [id number] [place] [address]- 5636 Nov, [facility] [place] [facility] [address] [id number] [place] [address]- 5306 Oct, [facility] [place] [facility] [address] [id number] [place] [address]- 3325 Oct, [facility] [place] [facility] [address] [id number] [place] [address]- 6424 Oct, [facility] [place] [facility] [address] [id number] [place] [address]- 9078 Oct, [facility] [place] [facility] [address] [id number] [place] [address]- 5220 Oct, [facility] [place] [facility] [address] [id number] [place] [address]- 6706 Sep, [facility] [place] [facility] [address] [id number] [place] [address]- 0527 Sep, [facility] [place] [facility] [address] [id number] [place] [address]- 1090 Sep, [facility] [place] [facility] [address] [id number] [place] [address]- 2988 Sep, [facility] [place] [facility] [address] [id number] [place] [address]- 9997 Sep, [facility] [place] [facility] [address] [id number] [place] [address]- 2546 Sep, [facility] [address] [id number] [place] [address]- 2717 Sep, [facility] [address] [id number] [place] [address]- 7839 Aug, [facility] [address] [id number] [place] [address]- 7471 Aug, [facility] [place] [facility] [address] [id number] [place] [address]- 5928 July, [facility] [address] [id number] [place] [address]- 5865 Jun, [facility] [place] [facility] [address] [id number] [place] [address]- 7214 Jun, [facility] [address] [id number] [place] [address]- 1231 Jun, [facility] [place] [facility] [address] [id number] [place] [address]- 5889 Apr, [facility] [address] [id number] [place] [address]- 5011 Apr, [facility] [place] [facility] [address] [id number] [place] [address]- 8745 Apr, [facility] [address] [id number] [place] [address]- 5586 Mar, [facility] [place] [facility] [address] [id number] [place] [address]- 5142 Mar, [facility] [place] [facility] [address] [id number] [place] [address]- 9616 Mar, [facility] [place] [facility] [address] [id number] [place] [address]- 7933 Mar, [facility] [place] [facility] [address] [id number] [place] [address]- 6086 Mar, [facility] [place] [facility] [address] [id number] [place] [address]- 1460 14 Feb, 2012 [facility] [place] [facility] [address] [id number] [place] [address]- 0857 14 Feb, 2012 [facility] [place] [facility] [address] [id number] [place] [address]- 0926 13 Jan, 2012 [facility] [place] [facility] [address] [id number] [place] [address]- 3941 13 Jan, 2012 [facility] [place] [facility] [address] [id number] [place] [address]- 5948 13 Jan, 2012 [facility] [place] [facility] [address] [id number] [place] [address]- 8076 13 Jan, 2012 [facility] [place] [facility] [address] [id number] [place] [address]- 7998 07 Jan, 2012 [facility] [place] [facility] [address] [id number] [place] [address]- 5857 Jan, [facility] [place] [facility] [address] [id number] [place] [address]- 5576 06 Jan, 2012 [facility] [place] [facility] [address] [id number] [place] [address]- 4068 31 Dec, 2011 [facility] [place] [facility] [address] [facility] [id number] [place] [address]- 7488 31 Dec, 2011 [facility] [place] [facility] [address] [id number] [place] [address]- 4892 30 Dec, 2011 [facility] [place] [facility] [address] [id number] [place] [address]- 9526 30 Dec, 2011 [facility] [place] [facility] [address] [id number] [place] [address]- 0766 30 Dec, 2011 [facility] [place] [facility] [address] [facility] [id number] [place] [address]- 7346 30 Dec, 2011 [facility] [place] [facility] [address] [id number] [place] [address]- 3345 Dec, [facility] [place] [facility] [address] [id number] [place] [address]- 9904 Dec, [facility] [place] [facility] [address] [id number] [place] [address]- 4536 Dec, [facility] [place] [facility] [address] [id number] [place] [address]- 8147 Dec, [facility] [place] [facility] [address] [id number] [place] [address]- 8142 Oct, [facility] [place] [facility] [address] [id number] [place] [address]- 2521 Oct, [facility] [place] [facility] [address] [id number] [place] [address]- 2361 Aug, [facility] [place] [facility] [address] [id number] [place] [address]- 4913 Aug, [facility] [place] [facility] [address] [id number] [place] [address]- 4271 July, [facility] [place] [facility] [address] [id number] [place] [address]- 0742 Jun, [facility] [place] [facility] [address] [id number] [place] [address]- 8592 Jun, [facility] [place] [facility] [address] [id number] [place] [address]- 4729 May, [facility] [place] [facility] [address] [id number] [address]- 0686 Apr, [facility] [place] [facility] [address] [id number] [place] [address]- 3334 Apr, [facility] [place] [facility] [address] [id number], [place] [address]- 6516 Mar, [facility] [place] [facility] [address] [id number] [place] [address]- 1236 Mar, [facility] [place] [facility] [address] [id number] [place] [address]- 0754 19 Feb, 2011 [facility] [address] [id number] [place] [address]- 4536 15 Feb, 2011 [facility] [place] [facility] [address] [id number] [place] [address] 2546 13 Feb, 2011 [facility] [address] [id number] [place] [address]- 6266 13 Feb, 2011 [facility] [place] [facility] [address] [id number] [place] [address] 2549 Jan, [facility] [address] [id number] [place] [address]- 4831 17 Dec, 2010 [facility] [address] [id number] [place] [address]- 0848 08 Feb, 2010 [facility] [address] [id number] [place] [address]- 7411 02 Feb, 2010 [facility] [address] [id number] [place] [address]- 5215 Feb, [facility] [place] [facility] [address] [id number] [place] [address]- 1184 Feb, [facility] [address] [facility] [id number] [place] [address]- 0248 15 Dec, 2009 [facility] [place] [facility] [address] [id number] [place] [address]- 9376 15 Dec, 2009 [facility] [place] [facility] [address] [id number] [place] [address]- 9617 Oct, [facility] [place] [facility] [address] [id number] [place] [address]- 6912 15 Jun, 2009 [facility] [place] [facility] [address] [id number] [place] [address] 2544 Feb, [facility] [place] [facility] [address] [id number] [place] [address]- 1819 Feb, [facility] [address] [facility] [id number] [place] [address]677 Feb, [facility] [address] [facility] [id number] [place] [address]33 Dec, IMMUNIZATIONS No Known Immunizations SOCIAL HISTORY Never Assessed REASON FOR VISIT INR PLAN OF CARE VITAL SIGNS MEDICATIONS Unknown [...]
--- OUTSIDE RECORDS SUMMARY | 2018-08-02 09:07 | XMS REPORT ---
Author Author ASHLEY BRUNO [facility] [employer] Address Unknown Phone Unavailable Care Team Providers Care Petroleum Inspector Supervisor Name Role Phone ASHLEY BRUNO Unavailable Allergies No Known Allergies Problems Problem Type Condition ICD-9 Code Onset Dates Condition Status Problem Irregular menstrual cycle 626.4 Active Problem Chronic pain syndrome 338.4 Active Problem Pure hyperglyceridemia 272.1 Active Assessment Personal history of venous thrombosis and embolism V12.51 Active Problem Unspecified anemia 285.9 Active Problem [...]
--- OUTSIDE RECORDS SUMMARY | 2018-08-02 09:08 | XMS REPORT ---
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 Active 489328924 Problem Factor V Leiden D68.51 Active 655478055 Problem History of DVT (deep vein thrombosis) Z86.718 Active 776847694 Problem Excessive daytime sleepiness G47.19 Active 407153006925 Problem Gastroesophageal reflux disease, esophagitis presence not specified K21.9 Active 046228608 Problem Pelvic pain R10.2 Active 58875793 Problem 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 Active 224591447 Problem Presence of IVC filter Z95.828 Active 559491077 Problem Peripheral edema R60.9 Active [id number] ALLERGIES No Information SOCIAL HISTORY Never Assessed PLAN OF CARE VITAL SIGNS MEDICATIONS No Known Medications RESULTS Name Result Date Reference Range INR (IN HOUSE) 2016-05-13 INR 3.9 1.10 - 3.30 PREVIOUS INR 2.5 CURRENT COUMADIN DOSE 6 mg qd NEW COUMADIN DOSE Lot # [id number] Exp date Jan 2017 PROCEDURES Procedure Date Ordered Result Body Site PROTHROMBIN TIME May 13, 2016 IMMUNIZATIONS No Known Immunizations MEDICAL (GENERAL) HISTORY Type Description Date Medical History obesity Medical History Hematologic disorder factor clotting problem Medical History DVT's Surgical History Lap Band 10/2012 Surgical History section 1985, 1987 Surgical History cholecystectomy Surgical History Montchanin Filter 06/2009 Surgical History Left leg exploratory surgery r/t clot 1987 Hospitalization History Ruptured Ovarian Cyst with abd bleeding 11/2009
--- OUTSIDE RECORDS SUMMARY | 2018-08-02 09:08 | XMS REPORT ---
Author Author KIANA ASHLEY [facility] Address [address] [place] [address] Care Team Providers Care Transformer Shop Supervisor Name Role Phone ELMO BRUNOY Unavailable PROBLEMS Type Condition ICD9-CM Code BFQ33-CY Code Onset Dates Condition Status SNOMED Code Problem Generalized anxiety disorder F41.1 Active 833954388 Problem 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 Active 955633592 Problem History of DVT (deep vein thrombosis) Z86.718 Active 608970541 Problem Factor V Leiden D68.51 Active 479820004 Problem Hypertriglyceridemia E78.1 Active 636572648 Problem penitentiary (current) use of anticoagulants Z79.01 Active 711971166 Problem Thyroid nodule E04.1 Active 290421168 Problem Excessive daytime sleepiness G47.19 Active 388409845805 Problem Peripheral edema R60.9 Active 926446541 Problem Pelvic pain R10.2 Active 48345823 Problem Gastroesophageal reflux disease, esophagitis presence not specified K21.9 Active 096885215 Problem Presence of IVC filter Z95.828 Active 524210962 ALLERGIES No Information ENCOUNTERS Encounter Location Date Diagnosis [place] [address], [place] [address] Aug, [facility] [address] [place] [id number] [place] [address] 23814- 6126 Aug, [facility] [address] [place] [address] 18669- 5798 Aug, Acute pain of left shoulder M25.512 and Thyroid nodule E04.1 [facility] [address] [place] [address] 17540- 2034 July, Superior glenoid labrum lesion of left shoulder, subsequent encounter S43.432D [place] [address] [place] [id number] [place] [address] 14126- 5515 Jun, History of DVT (deep vein thrombosis) Z86.718 [facility] [address] [place] [id number] [place] [address] 78811- 0561 Jun, History of DVT (deep vein thrombosis) Z86.718 [place] [address] [place] [id number] [place] [address] 38717- 2175 Jun, Impingement syndrome, shoulder, left M75.42 [place] [address] [place] [id number] [place] [address] 48109- 0990 May, Subacromial bursitis of left shoulder joint M75.52 [place] [address] [place] [id number] [place] [address] 52757- 0829 May, [place] [address] [place] [id number] [place] [address] 92520- 5379 May, Hypertriglyceridemia E78.1 ; penitentiary (current) use of anticoagulants Z79.01 and Excessive daytime sleepiness G47.19 [place] [address] [place] [id number] [place] [address] 64875- 7468 May, History of DVT (deep vein thrombosis) Z86.718 ; Generalized anxiety disorder F41.1 ; Hypertriglyceridemia E78.1 ; 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 ; Subacromial bursitis of left shoulder joint M75.52 and Excessive daytime sleepiness G47.19 [place] [address] [place] [address] 39912- 8627 May, [place] [address] [place] [id number] [place] [address] 75123- 1121 May, penitentiary (current) use of anticoagulants Z79.01 [place] [address] [place] [id number] [place] [address] 67078- 1197 Apr, penitentiary (current) use of anticoagulants Z79.01 [place] [address] [place] [id number] [place] [address] 87393- 6779 Apr, penitentiary (current) use of anticoagulants Z79.01 [facility] [address] [place] [address] 33196 2546 Apr, penitentiary (current) use of anticoagulants Z79.01 [facility] [address] [place] [id number] [place] [address] 13842 2546 Apr, [facility] [address] [address] 2546 Apr, penitentiary (current) use of anticoagulants Z79.01 [facility] [address] [place] [id number] [place] [address] 78889 2546 13 Apr, 2017 penitentiary (current) use of anticoagulants Z79.01 [facility] [address] [place] [id number] [place] [address] 57113 2546 Apr, penitentiary (current) use of anticoagulants Z79.01 [facility] [address] [place] [id number] [place] [address] 41488 2546 Apr, penitentiary (current) use of anticoagulants Z79.01 [facility] [address] [place] [id number] [place] [address] 17855 2546 Apr, 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 [address] [id number] [place] [address] [id number] Jan, Dental examination Z01.20 [facility] [address] [place] [address] [id number] Jan, [facility] [address] [place] [id number] [place] [address] 37545- 5892 Jan, penitentiary (current) use of anticoagulants Z79.01 [facility] [address] [place] [id number] [place] [address] 61632- 7739 Jan, History of DVT (deep vein thrombosis) Z86.718 [facility] [address] [place] [id number] [place] [address] 28286- 1896 Jan, Generalized anxiety disorder F41.1 and Peripheral edema R60.9 [facility] [address] [place] [id number] [place] [address] 74202- 4770 Nov, History of DVT (deep vein thrombosis) Z86.718 [facility] [address] [place] [id number] [place] [address] 71971- 8395 Nov, 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 [facility] [address] [place] [address] 57736 -5224 Nov, Acute non-recurrent maxillary sinusitis J01.00 [facility] [address] [place] [address] 79096- 7609 Oct, 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 [facility] [address] [place] [address] 59855- 0720 Oct, Personal history of venous thrombosis and embolism Z86.718 [facility] [address] [id number] [place] [address] 29914- 8341 Sep, [facility] [address] [place] [id number] [place] [address] 82579- 1855 Sep, Personal history of venous thrombosis and embolism Z86.718 [facility] [address] [place] [id number] [place] [address] 46290- 3114 Sep, penitentiary (current) use of anticoagulants Z79.01 [place] [address] [place] [id number] [place] [address] 89735- 9796 Sep, penitentiary (current) use of anticoagulants Z79.01 [place] [address] [place] [id number] [place] [address] 92514- 0927 Sep, Generalized anxiety disorder F41.1 and History of DVT (deep vein thrombosis) Z86.718 [place] [address] [place] [id number] [place] [address] 05621- 9117 Aug, History of DVT (deep vein thrombosis) Z86.718 ; Generalized anxiety disorder F41.1 ; 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 ; Pelvic pain R10.2 ; Hypertriglyceridemia E78.1 ; Excessive daytime sleepiness G47.19 ; Colon cancer screening Z12.11 ; Screening for breast cancer Z12.39 ; Peripheral edema R60.9 and Gastroesophageal reflux disease, esophagitis presence not specified K21.9 [place] [address] [place] [id number] [place] [address] 12100- 6597 Aug, [place] [address] [place] [id number] [place] [address] 42871- 2622 July, [place] [address] [place] [id number] [place] [address] 20991- 9094 July, History of DVT (deep vein thrombosis) Z86.718 [place] [address] [place] [id number] [place] [address] 63712- 2898 Jun, Generalized anxiety disorder F41.1 [place] [address] [place] [id number] [place] [address] 62140- 0573 Jun, History of DVT (deep vein thrombosis) Z86.718 [place] [address] [place] [id number] [place] [address] 29766- 2728 Jun, History of DVT (deep vein thrombosis) Z86.718 [place] [address] [place] [address]- 9841 Jun, History of DVT (deep vein thrombosis) Z86.718 [facility] [address] [place] [id number] [place] [address] 47650- 9823 Jun, History of DVT (deep vein thrombosis) Z86.718 [facility] [address] [place] [id number] [place] [address] 11424- 5000 May, History of DVT (deep vein thrombosis) Z86.718 [facility] [address] [place] [id number] [place] [address] 00654- 6801 May, 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 [place] [address] 53275- 1849 May, 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 [place] [address] [place] [id number] [place] [address] 10628- 7430 May, History of DVT (deep vein thrombosis) Z86.718 [facility] [address] [place] [id number] [place] [address] 41396 -2016 Apr, Bacterial conjunctivitis of left eye H10.9 and H/O motion sickness Z87.898 [facility] [address] [place] [address] 49543- 6259 Apr, History of DVT (deep vein thrombosis) Z86.718 [facility] [address] [place] [id number] [place] [address] 26369- 2307 Apr, History of DVT (deep vein thrombosis) Z86.718 [place] [address] [place] [id number] [place] [address] 74616- 4132 Apr, History of DVT (deep vein thrombosis) Z86.718 [facility] [address] [place] [id number] [place] [address] 74586- 8339 14 Apr, 2016 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 [facility] [address], [place] [address]- 9946 Mar, [place] [address] [place] [id number] [place] [address] 15198- 7466 Mar, penitentiary (current) use of anticoagulants Z79.01 [place] [address] [place] [address] 99328 2546 Mar, 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 and Hypertriglyceridemia E78.1 [place] [address] [place] [id number] [place] [address] 52013 2546 Feb, penitentiary (current) use of anticoagulants Z79.01 [place] [address] [place] [id number] [place] [address] 85512 2546 Feb, penitentiary (current) use of anticoagulants Z79.01 [place] [address] [place] [id number] [place] [address] 28311 2546 Feb, 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 [place] [address] [place] [address] 06788 2546 Dec, [place] [address] [place] [id number] [place] [address] 51659- 0366 Nov, [place] [address] [place] [address] 96010- 1726 Nov, History of DVT (deep vein thrombosis) Z86.718 ; Tremulousness R25.1 ; Generalized anxiety disorder F41.1 ; Peripheral edema R60.9 and Hypertriglyceridemia E78.1 [place] [address], [place] [address] 2546 Oct, History of DVT (deep vein thrombosis) Z86.718 [place] [address] [place] [address] 06143 2546 Oct, [place] [address] [place] [address] 85351- 2546 Sep, History of DVT (deep vein thrombosis) Z86.718 [facility] [address] [place] [address] 99486- 0680 Sep, 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 [facility] [address] [place] [id number] [place] [address] 52479- 3898 July, [facility] [address] [place] [id number] [place] [address] 83037- 7085 July, 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 [facility] [address] [place] [id number] [place] [address] 89397- 3103 July, 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 [place] [address] [place] [id number] [place] [address] 34289- 3579 Jun, penitentiary (current) use of anticoagulants Z79.01 [facility] [address] [place] [id number] [place] [address] 88796 -5508 Jun, Coccyx pain M53.3 ; Encounter for therapeutic drug level monitoring Z51.81 and termite renewal inspector current use 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.01 [facility] [address] [place] [id number] [place] [address] 50334- 6916 May, Abnormal mammogram R92.8 [facility] [address] [place] [id number] [place] [address] 44834 -2899 May, [facility] [address] [place] [id number] [place] [address] 92503 -2303 May, Acute vaginitis N76.0 and Encounter for other screening for malignant neoplasm of breast Z12.39 [place] [address] [place] [id number] [place] [address] 69611- 7836 Apr, [facility] [address] [place] [id number] [place] [address] 71991- 0878 Apr, [facility] [address] [place] [id number] [place] [address] 43147- 8313 Apr, Peripheral edema R60.9 [facility] [address] [place] [id number] [place] [address] 02913 2546 Apr, penitentiary (current) use of anticoagulants Z79.01 [facility] [address] [place] [id number] [place] [address] 84515 2546 Apr, Peripheral edema R60.9 and 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 [place] [address] [place] [id number] [place] [address] 00600 2546 Apr, penitentiary (current) use of anticoagulants Z79.01 [place] [address] [place] [id number] [place] [address] 85792 2546 Apr, [place] [address] [place] [id number] [place] [address] 39465 2546 Apr, penitentiary (current) use of anticoagulants Z79.01 [place] [address] [place] [id number] [place] [address] 73338 2546 Apr, Peripheral edema R60.9 [place] [address] [place] [id number] [place] [address] 14171 2546 Mar, 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 [place] [address] [place] [id number] [place] [address] 06229 2546 Mar, 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 and Hypertriglyceridemia E78.1 [place] [address] [place] [address] 36886 2546 Mar, penitentiary (current) use of anticoagulants Z79.01 [place] [address] [place] [id number] [place] [address] 98951 2546 Mar, 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 [place] [address] [place] [id number] [place] [address] 49978 2546 Mar, [place] [address] [place] [address]- 1371 Mar, 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 ; Hypertriglyceridemia E78.1 ; Personal history of venous thrombosis and embolism Z86.718 and Lump R22.9 [place] [address] [place] [address] 89290- 1514 Mar, Personal history of venous thrombosis and embolism Z86.718 [place] [address] [place] [id number] [place] [address] 59919- 7994 Mar, Personal history of venous thrombosis and embolism Z86.718 [place] [address] [place] [id number] [place] [address] 35627- 2172 Mar, [place] [address] [place] [id number] [place] [address] 02461- 7569 Dec, Personal history of venous thrombosis and embolism Z86.718 [place] [address] [place] [id number] [place] [address] 04878- 9345 Dec, Personal history of venous thrombosis and embolism V12.51 [place] [address] [place] [id number] [place] [address] 57048- 7594 Nov, Personal history of venous thrombosis and embolism V12.51 [place] [address] [place] [address] 35712- 8402 Nov, Personal history of venous thrombosis and embolism V12.51 [place] [address] [place] [address] 90962- 0039 Nov, Personal history of venous thrombosis and embolism V12.51 [place] [address] [place] [address] 02337- 1930 Nov, Personal history of venous thrombosis and embolism V12.51 [place] [address] [place] [address] 34399- 5593 Nov, [place] [address] [place] [id number] [place] [address] 65443- 7587 Oct, Dysuria 788.1 [facility] [address], [place] [address]- 2973 Oct, Personal history of venous thrombosis and embolism V12.51 [facility] [address], [place] [address]- 3962 Oct, [facility] [address], [place] [address]- 0906 Oct, Personal history of venous thrombosis and embolism V12.51 [facility] [address] [place] [address] 53391- 4314 Sep, Personal history of venous thrombosis and embolism V12.51 [facility] [address] [place] [address] 77885- 5434 Sep, Personal history of venous thrombosis and embolism V12.51 [facility] [address] [place] [address] 93707- 7799 Aug, Personal history of venous thrombosis and embolism V12.51 [facility] [address], [place] [address]- 8759 Aug, Personal history of venous thrombosis and embolism V12.51 [facility] [address], [place] [address]- 2012 Aug, Personal history of venous thrombosis and embolism V12.51 [facility] [address], [place] [address]- 7553 July, Generalized anxiety disorder 300.02 ; Abdominal pain, left lower quadrant 789.04 and Personal history of venous thrombosis and embolism V12.51 [facility] [address], [place] [address]- 6697 Jun, [facility] [address], [place] [address]- 0609 Jun, [facility] [address], [place] [address]- 6694 May, [facility] [place] [facility] [address] [id number] [place] [address]- 6071 May, [facility] [place] [facility] [address] [id number] [place] [address]- 6931 May, [facility] [place] [facility] [address] [id number] [place] [address]- 7705 May, [facility] [place] [facility] [address] [id number] [place] [address]- 3692 May, [facility] [place] [facility] [address] [id number] [place] [address]- 8967 May, [facility] [place] [facility] [address] [id number] [place] [address]- 4906 May, [facility] [place] [facility] [address] [facility] [id number] [place] [address]- 4557 May, [facility] [place] [facility] [address] [id number] [place] [address]- 8613 Apr, [facility] [place] [facility] [address] [id number] [place] [address]- 9985 Apr, [facility] [place] [facility] [address] [facility] [id number] [place] [address]- 5766 Apr, [facility] [place] [facility] [address] [facility] [id number] [place] [address]- 7649 Apr, [facility] [place] [facility] [address] [id number] [address]- 2771 Apr, [facility] [place] [facility] [address] [id number] [place] [address]- 5887 Mar, [facility] [place] [facility] [address] [id number] [place] [address]- 3101 Mar, [facility] [place] [facility] [address] [facility] [id number], [place] [address]- 9751 Mar, [facility] [place] [facility] [address] [id number] [place] [address]- 3576 Mar, [facility] [place] [facility] [address] [id number] [place] [address]- 4339 Mar, [facility] [place] [facility] [address] [id number] [place] [address]- 9544 Mar, [facility] [place] [facility] [address] [id number] [place] [address]- 7045 Feb, [facility] [place] [facility] [address] [id number] [place] [address]- 0677 Feb, [facility] [place] [facility] [address] [id number] [place] [address]- 7025 Feb, [facility] [place] [facility] [address] [id number] [place] [address]- 1622 Feb, [facility] [place] [facility] [address] [facility] [id number] [place] [address]- 6415 Feb, [facility] [place] [facility] [address] [id number] [place] [address]- 1405 Feb, [facility] [place] [facility] [address] [id number] [place] [address]- 9810 Feb, [facility] [place] [facility] [address] [id number] [place] [address]- 2615 Feb, [facility] [place] [facility] [address] [id number] [place] [address]- 0588 Feb, [facility] [place] [facility] [address] [id number] [place] [address]- 4849 Feb, [facility] [place] [facility] [address] [id number] [place] [address]- 6836 Jan, [facility] [place] [facility] [address] [id number] [place] [address]- 8502 Jan, [facility] [place] [facility] [address] [facility] [id number] [place] [address]- 5720 Jan, [facility] [place] [facility] [address] [id number] [place] [address]- 6297 Jan, [facility] [place] [facility] [address] [id number] [place] [address] Jan, [facility] [place] [facility] [address] [id number] [place] [address] Jan, [facility] [place] [facility] [address] [id number] [place] [address] Jan, [facility] [place] [facility] [address] [id number] [place] [address] Jan, [facility] [place] [facility] [address] [id number] [place] [address] Jan, [facility] [place] [facility] [address] [id number] [place] [address] Jan, [facility] [place] [facility] [address] [id number] [place] [address] Dec, [facility] [place] [facility] [address] [id number] [place] [address] Dec, [facility] [place] [facility] [address] [id number] [place] [address] Dec, [facility] [place] [facility] [address] [id number] [place] [address] Dec, [facility] [place] [facility] [address] [id number] [place] [address] Dec, [facility] [place] [facility] [address] [id number] [place] [address]- [address] Dec, [facility] [place] [facility] [address] [id number] [place] [address]- [address] Dec, [facility] [place] [facility] [address] [id number] [place] [address]- [address] Dec, [facility] [place] [facility] [address] [id number] [place] [address]- [address] Dec, [facility] [place] [facility] [address] [id number] [place] [address] Dec, [facility] [place] [facility] [address] [id number] [place] [address]- [address] Dec, [facility] [place] [facility] [address] [id number] [place] [address]- [address] Dec, [facility] [place] [facility] [address] [id number] [place] [address]- 114[address] Dec, [facility] [place] [facility] [address] [id number] [place] [address]- [address] Dec, [facility] [place] [facility] [address] [id number] [place] [address]- [address] Dec, [facility] [place] [facility] [address] [id number] [place] [address]- [address] 30 Nov, 2013 [facility] [place] [facility] [address] [id number] [place] [address] 30 Nov, 2013 [facility] [place] [facility] [address] [id number] [place] [address]- [address] 26 Nov, 2013 [facility] [place] [facility] [address] [id number] [place] [address]- [address] 26 Nov, 2013 [facility] [place] [facility] [address] [id number], [place] [address] 24 Sep, 2013 [facility] [place] [facility] [address] [id number], [place] [address] 24 Sep, 2013 [facility] [place] [facility] [address] [id number] [place] [address] 23 Sep, 2013 [facility] [place] [facility] [address] [id number] [place] [address] 23 Nov, 2013 [facility] [place] [facility] [address] [id number] [place] [address] 18 Nov, 2013 [facility] [place] [facility] [address] [id number] [place] [address] 9[address] 18 Nov, 2013 [facility] [place] [facility] [address] [id number] [place] [address] 5046 17 Nov, 2013 [facility] [place] [facility] [address] [id number] [place] [address] 1376 17 Nov, 2013 [facility] [place] [facility] [address] [id number] [place] [address] 3326 11 Nov, 2013 [facility] [place] [facility] [address] [id number] [place] [address] 2546 11 Nov, 2013 [facility] [place] [facility] [address] [id number] [place] [address] 5666 10 Nov, 2013 [facility] [place] [facility] [address] [id number] [place] [address] 1227 10 Nov, 2013 [facility] [place] [facility] [address] [id number] [place] [address]- 7781 08 Nov, 2013 [facility] [place] [facility] [address] [id number] [place] [address]- 8362 08 Nov, 2013 [facility] [place] [facility] [address] [id number] [place] [address] 8693 Sep, 2013 [facility] [place] [facility] [address] [id number] [place] [address] 5672 Sep, [facility] [place] [facility] [address] [id number] [place] [address]- 0931 Sep, 2013 [facility] [place] [facility] [address] [id number] [place] [address] 5685 Sep, 2013 [facility] [place] [facility] [address] [id number] [place] [address]- 6935 Sep, [facility] [place] [facility] [address] [id number] [place] [address]- 6961 Sep, 2013 [facility] [place] [facility] [address] [id number] [place] [address]- 1056 Aug, [facility] [place] [facility] [address] [id number] [place] [address] 7259 Aug, [facility] [place] [facility] [address] [id number] [place] [address] 5579 Aug, [facility] [place] [facility] [address] [id number] [place] [address] 6732 Aug, [facility] [place] [facility] [address] [id number] [place] [address]- 4209 Aug, [facility] [place] [facility] [address] [id number] [place] [address] 4981 Aug, [facility] [place] [facility] [address] [id number] [place] [address]- 0466 Aug, [facility] [place] [facility] [address] [id number] [place] [address]- 0825 Aug, [facility] [place] [facility] [address] [id number] [place] [address]- 3663 Aug, [facility] [place] [facility] [address] [id number] [place] [address]- 7555 Aug, [facility] [place] [facility] [address] [id number] [place] [address]- 6347 Aug, [facility] [place] [facility] [address] [id number] [place] [address]- 3272 July, [facility] [place] [facility] [address] [id number] [place] [address]- 5287 July, [facility] [place] [facility] [address] [id number] [place] [address]- 2227 Jun, [facility] [place] [facility] [address] [id number] [place] [address]- 5626 Jun, [facility] [place] [facility] [address] [id number] [place] [address]- 5874 Jun, [facility] [place] [facility] [address] [id number] [place] [address]- 4865 18 Jun, 2013 [facility] [place] [facility] [address] [id number] [place] [address]- 6074 18 Jun, 2013 [facility] [place] [facility] [address] [id number] [place] [address]- 4584 18 Jun, 2013 [facility] [place] [facility] [address] [id number] [place] [address]- 2630 15 Jun, 2013 [facility] [place] [facility] [address] [id number] [place] [address]- 2659 15 Jun, 2013 [facility] [place] [facility] [address] [id number] [place] [address]- 3282 Jun, [facility] [place] [facility] [address] [id number] [place] [address]- 5047 Jun, [facility] [place] [facility] [address] [id number] [place] [address]- 3893 Jun, [facility] [place] [facility] [address] [id number] [place] [address]- 5446 Jun, [facility] [place] [facility] [address] [id number] [place] [address]- 6653 May, [facility] [place] [facility] [address] [id number] [place] [address]- 2028 May, [facility] [place] [facility] [address] [id number] [place] [address]- 1585 May, [facility] [place] [facility] [address] [id number] [place] [address]- 1574 May, [facility] [place] [facility] [address] [id number] [place] [address]- 2066 May, [facility] [place] [facility] [address] [id number] [place] [address]- 8076 19 May, 2013 [facility] [place] [facility] [address] [id number] [place] [address]- 3665 May, [facility] [place] [facility] [address] [id number] [place] [address] 1999 May, [facility] [place] [facility] [address] [id number] [place] [address]- 2281 May, [facility] [place] [facility] [address] [id number] [place] [address]- 8976 May, [facility] [place] [facility] [address] [id number] [place] [address]- 2128 May, [facility] [place] [facility] [address] [id number] [place] [address]- 6571 May, [facility] [place] [facility] [address] [id number] [place] [address]- 5736 Apr, [facility] [place] [facility] [address] [facility] [id number] [place] [address]- 9848 Apr, [facility] [place] [facility] [address] [id number] [place] [address]- 8757 Apr, [facility] [place] [facility] [address] [id number] [place] [address]- 2996 Apr, [facility] [place] [facility] [address] [facility] [id number] [place] [address]- 7572 Apr, [facility] [place] [facility] [address] [facility] [id number] [place] [address]- 5904 Apr, [facility] [place] [facility] [address] [facility] [id number] [place] [address]- 5921 Apr, [facility] [place] [facility] [address] [id number] [place] [address]- 8179 Apr, [facility] [place] [facility] [address] [id number] [place] [address]- 0652 Apr, [facility] [place] [facility] [address] [facility] [id number] [place] [address]- 6816 Apr, [facility] [place] [facility] [address] [facility] [id number] [place] [address]- 2768 Apr, [facility] [place] [facility] [address] [id number] [place] [address]- 5536 Apr, [facility] [place] [facility] [address] [id number] [place] [address]- 0842 Apr, 2013 [facility] [place] [facility] [address] [id number] [place] [address]- 7566 Apr, [facility] [place] [facility] [address] [id number] [place] [address]- 9592 Apr, [facility] [place] [facility] [address] [id number] [place] [address]- 5892 Apr, [facility] [place] [facility] [address] [id number] [place] [address]- 2089 Apr, [facility] [place] [facility] [address] [facility] [id number] [place] [address]- 2298 Jan, [facility] [place] [facility] [address] [id number] [place] [address]- 5566 Jan, [facility] [place] [facility] [address] [facility] [id number] [place] [address]- 9762 Jan, [facility] [place] [facility] [address] [facility] [id number] [place] [address]- 7101 Jan, [facility] [place] [facility] [address] [id number] [place] [address]- 1178 Jan, [facility] [place] [facility] [address] [id number] [place] [address]- 0955 Jan, [facility] [place] [facility] [address] [id number] [place] [address]- 2338 Jan, [facility] [place] [facility] [address] [facility] [id number] [place] [address]- 8635 Dec, [facility] [place] [facility] [address] [id number] [place] [address]- 8103 Dec, [facility] [place] [facility] [address] [id number] [place] [address]- 2366 Dec, [facility] [place] [facility] [address] [id number] [place] [address]- 5573 Nov, [facility] [place] [facility] [address] [id number] [place] [address]- 6414 Nov, [facility] [place] [facility] [address] [id number] [place] [address]- 4826 Nov, [facility] [place] [facility] [address] [id number] [place] [address]- 4857 Nov, [facility] [place] [facility] [address] [id number] [place] [address]- 9682 Oct, [facility] [place] [facility] [address] [id number] [place] [address]- 8068 Oct, [facility] [place] [facility] [address] [id number] [place] [address]- 6456 Oct, [facility] [place] [facility] [address] [id number] [place] [address]- 9226 Oct, [facility] [place] [facility] [address] [id number] [place] [address]- 3381 Oct, [facility] [place] [facility] [address] [id number] [place] [address]- 5684 Sep, [facility] [place] [facility] [address] [id number] [place] [address]- 8763 Sep, [facility] [place] [facility] [address] [id number] [place] [address]- 1884 Sep, [facility] [place] [facility] [address] [id number] [place] [address]- 1217 Sep, [facility] [place] [facility] [address] [id number] [place] [address]- 8433 Sep, [facility] [place] [facility] [address] [id number] [place] [address]- 2546 Sep, [facility] [address] [id number] [place] [address]- 4988 Sep, [facility] [address] [id number] [place] [address]- 4156 Aug, [facility] [address] [id number] [place] [address]- 8893 Aug, [facility] [place] [facility] [address] [id number] [place] [address]- 3751 July, [facility] [address] [id number] [place] [address]- 1098 Jun, [facility] [place] [facility] [address] [id number] [place] [address]- 5167 Jun, [facility] [address] [id number] [place] [address]- 7934 Jun, [facility] [place] [facility] [address] [id number] [place] [address]- 0020 Apr, [facility] [address] [id number] [place] [address]- 1296 Apr, [facility] [place] [facility] [address] [id number] [place] [address]- 7179 Apr, [facility] [address] [id number] [place] [address]- 2121 Mar, [facility] [place] [facility] [address] [id number] [place] [address]- 2266 Mar, [facility] [place] [facility] [address] [id number] [place] [address]- 5372 Mar, [facility] [place] [facility] [address] [id number] [place] [address]- 5253 Mar, [facility] [place] [facility] [address] [id number] [place] [address]- 3306 Mar, [facility] [place] [facility] [address] [id number] [place] [address]- 0129 14 Feb, 2012 [facility] [place] [facility] [address] [id number] [place] [address]- 8566 14 Feb, 2012 [facility] [place] [facility] [address] [id number] [place] [address]- 1236 13 Jan, 2012 [facility] [place] [facility] [address] [id number] [place] [address]- 6528 13 Jan, 2012 [facility] [place] [facility] [address] [id number] [place] [address]- 9773 13 Jan, 2012 [facility] [place] [facility] [address] [id number] [place] [address]- 3702 13 Jan, 2012 [facility] [place] [facility] [address] [id number] [place] [address]- 0670 07 Jan, 2012 [facility] [place] [facility] [address] [id number] [place] [address]- 1546 Jan, [facility] [place] [facility] [address] [id number] [place] [address]- 2054 06 Jan, 2012 [facility] [place] [facility] [address] [id number] [place] [address]- 3516 31 Dec, 2011 [facility] [place] [facility] [address] [facility] [id number] [place] [address]- 2566 31 Dec, 2011 [facility] [place] [facility] [address] [id number] [place] [address]- 6676 30 Dec, 2011 [facility] [place] [facility] [address] [id number] [place] [address]- 8017 30 Dec, 2011 [facility] [place] [facility] [address] [id number] [place] [address]- 5726 30 Dec, 2011 [facility] [place] [facility] [address] [facility] [id number] [place] [address]- 5876 30 Dec, 2011 [facility] [place] [facility] [address] [id number] [place] [address]- 6492 Dec, [facility] [place] [facility] [address] [id number] [place] [address]- 6755 Dec, [facility] [place] [facility] [address] [id number] [place] [address]- 1965 Dec, [facility] [place] [facility] [address] [id number] [place] [address]- 7995 Dec, [facility] [place] [facility] [address] [id number] [place] [address]- 0389 Oct, [facility] [place] [facility] [address] [id number] [place] [address]- 9525 Oct, [facility] [place] [facility] [address] [id number] [place] [address]- 0428 Aug, [facility] [place] [facility] [address] [id number] [place] [address]- 8943 Aug, [facility] [place] [facility] [address] [id number] [place] [address]- 6103 July, [facility] [place] [facility] [address] [id number] [place] [address]- 4351 Jun, [facility] [place] [facility] [address] [id number] [place] [address]- 6990 Jun, [facility] [place] [facility] [address] [id number] [place] [address]- 6638 May, [facility] [place] [facility] [address] [id number], [place] [address]- 3224 Apr, [facility] [place] [facility] [address] [id number] [place] [address]- 3599 Apr, [facility] [place] [facility] [address] [id number], [place] [address]- 7236 Mar, [facility] [place] [facility] [address] [id number] [place] [address]- 8146 Mar, [facility] [place] [facility] [address] [id number] [place] [address]- 2164 19 Feb, 2011 [facility] [address] [id number] [place] [address]- 6056 15 Feb, 2011 [facility] [place] [facility] [address] [id number] [place] [address] 2546 13 Feb, 2011 [facility] [address] [id number] [place] [address]- 4806 13 Feb, 2011 [facility] [place] [facility] [address] [id number] [place] [address] 2547 Jan, [facility] [address] [id number] [place] [address]- 3146 17 Dec, 2010 [facility] [address] [id number] [place] [address]- 7180 08 Feb, 2010 [facility] [address] [id number] [place] [address]- 3706 02 Feb, 2010 [facility] [address] [id number] [place] [address]- 2586 Feb, [facility] [place] [facility] [address] [id number] [place] [address]- 7830 Feb, [facility] [place] [facility] [address] [facility] [id number] [place] [address]- 2302 15 Dec, 2009 [facility] [place] [facility] [address] [id number] [place] [address]- 0525 15 Dec, 2009 [facility] [place] [facility] [address] [id number] [place] [address]- 9197 Oct, [facility] [place] [facility] [address] [id number] [place] [address]- 6088 15 Jun, 2009 [facility] [place] [facility] [address] [id number] [place] [address] 2542 Feb, [facility] [place] [facility] [address] [id number] [place] [address]- 1994 Feb, [facility] [address] [facility] [id number] [place] [address] Feb, [facility] [address] [facility] [id number][place] Dec, IMMUNIZATIONS No Known Immunizations SOCIAL HISTORY Never Assessed REASON FOR VISIT Lab (walk-in) PLAN OF CARE VITAL SIGNS MEDICATIONS Unknown Medications RESULTS Name Result Date Reference Range INR (IN HOUSE) 2017-05-11 INR 5.4 1.10 - 3.30 PREVIOUS INR 3.3 CURRENT COUMADIN DOSE 5 mg MWThFSS 6 mg T NEW COUMADIN DOSE 5 mg qd Lot # [id number] Exp date 01/2018 PROCEDURES Procedure Date Ordered Result Body Site PROTHROMBIN TIME May 11, 2017 INSTRUCTIONS MEDICATIONS ADMINISTERED No Known Medications [...]
--- OUTSIDE RECORDS SUMMARY | 2018-08-02 09:08 | XMS REPORT ---
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 890524828 Problem Factor V Leiden D68.51 Active 308958755 Problem History of DVT (deep vein thrombosis) Z86.718 Active 175446011 Problem Excessive daytime sleepiness G47.19 Active 773467774578 Problem Gastroesophageal reflux disease, esophagitis presence not specified K21.9 Active 191650174 Problem Pelvic pain R10.2 Active 70231794 Problem 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 Active 495471559 Problem Presence of IVC filter Z95.828 Active 538858295 Problem Peripheral edema R60.9 Active 350871528 ALLERGIES No Information SOCIAL HISTORY Never Assessed PLAN OF CARE VITAL SIGNS MEDICATIONS Medication Instructions Dosage Frequency Start Date End Date Duration Status Coumadin 4 MG Orally Once a day 1 tablet 24h Jun, 30 day(s) Active RESULTS No Results PROCEDURES No Known procedures IMMUNIZATIONS No Known Immunizations MEDICAL (GENERAL) HISTORY Type Description Date Medical History obesity Medical History Hematologic disorder factor clotting problem Medical History DVT's Surgical History Lap Band 10/2012 Surgical History section 1985, 1987 Surgical History cholecystectomy Surgical History [place] Filter 06/2009 Surgical History Left leg exploratory surgery r/t clot 1987 Hospitalization History Ruptured Ovarian Cyst with abd bleeding 11/2009
--- OUTSIDE RECORDS SUMMARY | 2018-08-02 09:08 | XMS REPORT ---
Author Author ASHLEY BRUNO [facility] e[employer] Address Unknown Phone Unavailable Care Team Providers Care Mathematics Professor Name Role Phone ASHLEY BRUNO Unavailable Allergies No Known Allergies Problems Problem Type Condition ICD-9 Code Onset Dates Condition Status Problem Irregular menstrual cycle 626.4 Active Problem Chronic pain syndrome 338.4 Active Problem Pure hyperglyceridemia 272.1 Active Problem Unspecified anemia 285.9 Active Problem Lumbago 724.2 Active Problem Personal history of venous thrombosis and embolism V12.51 Active Problem Generalized anxiety disorder 300.02 Active Problem Hypopotassemia 276.8 Active Problem Pain in joint, lower leg 719.46 Active Problem Abdominal pain, left lower quadrant 789.04 Active Medications Medication Code System Code Instructions Start Date End Date Status Dosage Coumadin [facility] [address]-58 1 MG Orally on , , Thursday, Thursday. Take along with 5mg to equal 6mg 1 tablet Results No Known Results Summary Purpose eClinicalWorks Submission
--- OUTSIDE RECORDS SUMMARY | 2018-08-02 09:08 | XMS REPORT ---
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
--- OUTSIDE RECORDS SUMMARY | 2018-08-02 09:09 | XMS REPORT ---
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
--- OUTSIDE RECORDS SUMMARY | 2018-08-02 09:09 | XMS REPORT ---
Author Author ASHLEY BRUNO [facility] eClinicalWorks Address Unknown Phone Unavailable Care Team Providers Care Aids Nurse Name Role Phone ASHLEY BRUNO Unavailable Allergies [...] quadrant 789.04 Active Medications No Known Medications Procedures Procedure Coding System Code Date PROTHROMBIN TIME CPT-4 42395 Jan 18, 2015 Results No Known Results Summary Purpose eClinicalWorks Submission
--- OUTSIDE RECORDS SUMMARY | 2018-08-02 09:09 | XMS REPORT ---
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.01 Active Problem Generalized anxiety disorder F41.1 Active Problem Hypertriglyceridemia E78.1 Active Problem History of DVT (deep vein thrombosis) Z86.718 Active Problem Presence of IVC filter Z95.828 Active Problem prison (current) use of anticoagulants Z79.01 Active Problem Pelvic pain R10.2 Active Problem 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 Active Medications No Known Medications Procedures Procedure Coding System Code Date LIPID PANEL CPT-4 61337 Apr 27, 2015 COMPREHEN METABOLIC PANEL CPT-4 37220 Apr 27, 2015 COMPLETE CBC W/AUTO DIFF WBC CPT-4 72194 Apr 27, 2015 VENIPUNCT, ROUTINE* CPT-4 84696 Apr 27, 2015 Results Name Result Date Reference Range Unit Abnormality Flag ROUTINE VENIPUNCTURE Summary Purpose eClinicalWorks Submission
--- OUTSIDE RECORDS SUMMARY | 2018-08-02 09:09 | XMS REPORT ---
Author Author KIANA ASHLEY [facility] Address [address] [place] [address] Care Team Providers Care Manufacturers Representative Name Role Phone GILSON BRUNOHANY Unavailable PROBLEMS Type Condition ICD9-CM Code COB67-YK Code Onset Dates Condition Status SNOMED Code Problem Generalized anxiety disorder F41.1 Active 088937216 Problem 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 Active 542156196 Problem History of DVT (deep vein thrombosis) Z86.718 Active 321807283 Problem Factor V Leiden D68.51 Active 645989456 Problem Hypertriglyceridemia E78.1 Active 026956000 Problem half-way (current) use of anticoagulants Z79.01 Active 873156519 Problem Thyroid nodule E04.1 Active 644725436 Problem Excessive daytime sleepiness G47.19 Active 722451607719 Problem Peripheral edema R60.9 Active 805349979 Problem Pelvic pain R10.2 Active 04204062 Problem Gastroesophageal reflux disease, esophagitis presence not specified K21.9 Active 265035592 Problem Presence of IVC filter Z95.828 Active 447184951 ALLERGIES No Information ENCOUNTERS Encounter Location Date Diagnosis [place] [address] [address] Aug, [facility] [id number] [place] [address] 94539- 8470 Aug, [facility] [id number] [place] [address] 19048- 6898 Aug, Acute pain of left shoulder M25.512 and Thyroid nodule E04.1 [facility] [id number] [place] [address] 90897- 5657 July, Superior glenoid labrum lesion of left shoulder, subsequent encounter S43.432D [facility] [id number] [place] [address] 36315- 4175 Jun, History of DVT (deep vein thrombosis) Z86.718 [facility] [id number] [place] [address] 53705- 1477 Jun, History of DVT (deep vein thrombosis) Z86.718 [place] [id number] [place] [address] 50933- 5225 Jun, Impingement syndrome, shoulder, left M75.42 [facility] [id number] [place] [address] 41215- 6845 May, Subacromial bursitis of left shoulder joint M75.52 [facility] [id number] [place] [address] 75507- 8903 May, [facility] [id number] [place] [address] 18064- 8426 May, Hypertriglyceridemia E78.1 ; half-way (current) use of anticoagulants Z79.01 and Excessive daytime sleepiness G47.19 [facility] [id number] [place] [address] 84878- 4517 May, History of DVT (deep vein thrombosis) Z86.718 ; Generalized anxiety disorder F41.1 ; Hypertriglyceridemia E78.1 ; intermediate designer (current) use of anticoagulants Z79.01 ; Subacromial bursitis of left shoulder joint M75.52 and Excessive daytime sleepiness G47.19 [place] [id number] [place] [address] 98600- 3414 May, [facility] [facility] [id number] [place] [address] 98123- 1037 May, half-way (current) use of anticoagulants Z79.01 [facility] [facility] [id number] [place] [address] 59928- 4712 Apr, half-way (current) use of anticoagulants Z79.01 [facility] [id number] [place] [address] 70164- 5178 Apr, half-way (current) use of anticoagulants Z79.01 [facility] [id number] [place] [address] 21654 2546 Apr, half-way (current) use of anticoagulants Z79.01 [facility] [id number] [place] [address] 30093 2546 Apr, [facility] [address] 36421 2546 Apr, half-way (current) use of anticoagulants Z79.01 [facility] [id number] [place] [address] 18487 2546 13 Apr, 2017 half-way (current) use of anticoagulants Z79.01 [facility] [id number] [place] [address] 21226 2546 Apr, half-way (current) use of anticoagulants Z79.01 [facility] [id number] [place] [address] 06149 2546 Apr, half-way (current) use of anticoagulants Z79.01 [facility] [id number] [place] [address] 01067 2546 Apr, intermediate designer (current) use of anticoagulants Z79.01 [facility] [id number] [place] [address] 07478 2546 Apr, half-way (current) use of anticoagulants Z79.01 [facility] [id number] [place] [address] 81403 2546 Mar, half-way (current) use of anticoagulants Z79.01 [facility] [id number] [place] [address] 20884 2546 Mar, [facility] [id number] [place] [address] 93242 2546 Mar, intermediate designer (current) use of anticoagulants Z79.01 [facility] [id number] [place] [address] [id number] Jan, Dental examination Z01.20 [facility] [id number] [place] [address] [id number] Jan, [facility] [id number] [place] [address] 54461- 0857 Jan, half-way (current) use of anticoagulants Z79.01 [facility] [id number] [place] [address] 24767- 9271 Jan, History of DVT (deep vein thrombosis) Z86.718 [facility] [id number] [place] [address] 42376- 9618 Jan, Generalized anxiety disorder F41.1 and Peripheral edema R60.9 [facility] [id number] [place] [address] 40044- 3891 Nov, History of DVT (deep vein thrombosis) Z86.718 [facility] [id number] [place] [address] 45340- 0647 Nov, intermediate designer (current) use of anticoagulants Z79.01 [facility] [id number] [place] [address] 07528 -6394 Nov, Acute non-recurrent maxillary sinusitis J01.00 [facility] [address] [place] [address] 39103- 1077 Oct, intermediate designer (current) use of anticoagulants Z79.01 [facility] [id number] [place] [address] 07624- 3827 Oct, Personal history of venous thrombosis and embolism Z86.718 [facility] [id number] [place] [address] 88227- 4078 Sep, [facility] [id number] [place] [address] 39610- 7745 Sep, Personal history of venous thrombosis and embolism Z86.718 [facility] [id number] [place] [address] 26867- 9434 Sep, half-way (current) use of anticoagulants Z79.01 [place] [id number] [place] [address] 93298- 6578 Sep, half-way (current) use of anticoagulants Z79.01 [place] [address] [id number] [place] [address] 66007- 5892 Sep, Generalized anxiety disorder F41.1 and History of DVT (deep vein thrombosis) Z86.718 [place] [id number] [place] [address] 67106- 6083 Aug, History of DVT (deep vein thrombosis) Z86.718 ; Generalized anxiety disorder F41.1 ; intermediate designer (current) use of anticoagulants Z79.01 ; Pelvic pain R10.2 ; Hypertriglyceridemia E78.1 ; Excessive daytime sleepiness G47.19 ; Colon cancer screening Z12.11 ; Screening for breast cancer Z12.39 ; Peripheral edema R60.9 and Gastroesophageal reflux disease, esophagitis presence not specified K21.9 [place] [id number] [place] [address] 49785- 2507 Aug, [place] [facility] [id number] [place] [address] 60131- 2826 July, [facility] [facility] [id number] [place] [address] 15621- 4514 July, History of DVT (deep vein thrombosis) Z86.718 [place] [id number] [place] [address] 87120- 1073 Jun, Generalized anxiety disorder F41.1 [place] [id number] [place] [address] 32485- 0742 Jun, History of DVT (deep vein thrombosis) Z86.718 [place] [id number] [place] [address] 52215- 8482 Jun, History of DVT (deep vein thrombosis) Z86.718 [place] [address] [place] [address]- 1685 Jun, History of DVT (deep vein thrombosis) Z86.718 [facility] [id number] [place] [address] 31756- 0696 Jun, History of DVT (deep vein thrombosis) Z86.718 [facility] [id number] [place] [address] 30289- 2156 May, History of DVT (deep vein thrombosis) Z86.718 [facility] [id number] [place] [address] 14475- 0003 May, intermediate designer (current) use of anticoagulants Z79.01 [place] [address] 14277- 0715 May, intermediate designer (current) use of anticoagulants Z79.01 [place] [id number] [place] [address] 47313- 8249 May, History of DVT (deep vein thrombosis) Z86.718 [facility] [id number] [place] [address] 21271 -1232 Apr, Bacterial conjunctivitis of left eye H10.9 and H/O motion sickness Z87.898 [facility] [id number] [place] [address] 09614- 1979 Apr, History of DVT (deep vein thrombosis) Z86.718 [facility] [id number] [place] [address] 12218- 8580 Apr, History of DVT (deep vein thrombosis) Z86.718 [place] [id number] [place] [address] 84664- 5142 Apr, History of DVT (deep vein thrombosis) Z86.718 [facility] [id number] [place] [address] 06073- 8772 14 Apr, 2016 intermediate designer (current) use of anticoagulants Z79.01 [facility] [address], [place] [address]- 7658 Mar, [facility] [id number] [place] [address] 56086- 0636 Mar, half-way (current) use of anticoagulants Z79.01 [place] [address] [place] [address] 13061 2546 Mar, intermediate designer (current) use of anticoagulants Z79.01 and Hypertriglyceridemia E78.1 [place] [id number] [place] [address] 78536 2546 Feb, half-way (current) use of anticoagulants Z79.01 [place] [id number] [place] [address] 02772 2546 Feb, half-way (current) use of anticoagulants Z79.01 [place] [id number] [place] [address] 56403 2546 Feb, intermediate designer (current) use of anticoagulants Z79.01 [place] [id number] [place] [address] 12287 2546 Dec, [place] [id number] [place] [address] 20232- 2856 Nov, [place] [address] [place] [address] 14265- 4386 Nov, History of DVT (deep vein thrombosis) Z86.718 ; Tremulousness R25.1 ; Generalized anxiety disorder F41.1 ; Peripheral edema R60.9 and Hypertriglyceridemia E78.1 [place] [address], [place] [address] 2546 Oct, History of DVT (deep vein thrombosis) Z86.718 [place] [address] [place] [address] 06951 2546 Oct, [place] [address] [place] [address] 74423- 2546 Sep, History of DVT (deep vein thrombosis) Z86.718 [facility] [address] [place] [address] 03446- 2888 Sep, intermediate designer (current) use of anticoagulants Z79.01 [facility] [id number] [place] [address] 61667- 6574 July, [facility] [id number] [place] [address] 76426- 8820 July, intermediate designer (current) use of anticoagulants Z79.01 [facility] [id number] [place] [address] 79479- 5959 July, intermediate designer (current) use of anticoagulants Z79.01 [place] [id number] [place] [address] 89522- 7193 Jun, half-way (current) use of anticoagulants Z79.01 [facility] [id number] [place] [address] 70633 -2776 Jun, Coccyx pain M53.3 ; Encounter for therapeutic drug level monitoring Z51.81 and intermediate designer current use 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.01 [facility] [id number] [place] [address] 89792- 9685 May, Abnormal mammogram R92.8 [facility] [id number] [place] [address] 21156 -0395 May, [facility] [id number] [place] [address] 82317 -1263 May, Acute vaginitis N76.0 and Encounter for other screening for malignant neoplasm of breast Z12.39 [place] [id number] [place] [address] 77893- 4519 Apr, [facility] [id number] [place] [address] 00263- 6568 Apr, [facility] [id number] [place] [address] 60155- 9314 Apr, Peripheral edema R60.9 [facility] [id number] [place] [address] 96254 2546 Apr, half-way (current) use of anticoagulants Z79.01 [facility] [id number] [place] [address] 63224 2546 Apr, Peripheral edema R60.9 and intermediate designer (current) use of anticoagulants Z79.01 [place] [id number] [place] [address] 46960 2546 Apr, half-way (current) use of anticoagulants Z79.01 [place] [id number] [place] [address] 57424 2546 Apr, [facility] [facility] [id number] [place] [address] 99140 2546 Apr, half-way (current) use of anticoagulants Z79.01 [place] [id number] [place] [address] 20130 2546 Apr, Peripheral edema R60.9 [place] [id number] [place] [address] 05345 2546 Mar, intermediate designer (current) use of anticoagulants Z79.01 [place] [id number] [place] [address] 22106 2546 Mar, intermediate designer (current) use of anticoagulants Z79.01 and Hypertriglyceridemia E78.1 [place] [address] [place] [address] 97911 2546 Mar, half-way (current) use of anticoagulants Z79.01 [place] [id number] [place] [address] 80241 2546 Mar, intermediate designer (current) use of anticoagulants Z79.01 [place] [id number] [place] [address] 15807 2546 Mar, [place] [address] [place] [address]- 8336 Mar, intermediate designer (current) use of anticoagulants Z79.01 ; Hypertriglyceridemia E78.1 ; Personal history of venous thrombosis and embolism Z86.718 and Lump R22.9 [place] [address] [place] [address] 03111- 2516 Mar, Personal history of venous thrombosis and embolism Z86.718 [place] [id number] [place] [address] 62759- 5528 Mar, Personal history of venous thrombosis and embolism Z86.718 [place] [id number] [place] [address] 35337- 7507 Mar, [place] [id number] [place] [address] 17113- 8058 Dec, Personal history of venous thrombosis and embolism Z86.718 [place] [id number] [place] [address] 31334- 9182 Dec, Personal history of venous thrombosis and embolism V12.51 [place] [id number] [place] [address] 81253- 4838 Nov, Personal history of venous thrombosis and embolism V12.51 [place] [address] [place] [address] 02461- 4147 Nov, Personal history of venous thrombosis and embolism V12.51 [place] [address] [place] [address] 17863- 8772 Nov, Personal history of venous thrombosis and embolism V12.51 [place] [address] [place] [address] 75230- 9727 Nov, Personal history of venous thrombosis and embolism V12.51 [place] [address] [place] [address] 16991- 7291 Nov, [place] [id number] [place] [address] 46160- 5150 Oct, Dysuria 788.1 [facility] [address] [address]- 6727 Oct, Personal history of venous thrombosis and embolism V12.51 [facility] [address] [address]- 2048 Oct, [facility] [address], [place] [address]- 5236 Oct, Personal history of venous thrombosis and embolism V12.51 [facility] [address] [place] [address] 81155- 6458 Sep, Personal history of venous thrombosis and embolism V12.51 [facility] [address] [place] [address] 89171- 0701 Sep, Personal history of venous thrombosis and embolism V12.51 [facility] [address] [place] [address] 37587- 9441 Aug, Personal history of venous thrombosis and embolism V12.51 [facility] [address], [place] [address]- 9650 Aug, Personal history of venous thrombosis and embolism V12.51 [facility] [address], [place] [address]- 1558 Aug, Personal history of venous thrombosis and embolism V12.51 [facility] [address] [address]- 9937 July, Generalized anxiety disorder 300.02 ; Abdominal pain, left lower quadrant 789.04 and Personal history of venous thrombosis and embolism V12.51 [facility] [address], [place] [address]- 7534 Jun, [facility] [address], [place] [address]- 2249 Jun, [facility] [address], [place] [address]- 7988 May, [facility] [place] [facility] [address] [id number] [place] [address]- 3422 May, [facility] [place] [facility] [address] [id number] [place] [address]- 8259 May, [facility] [place] [facility] [address] [id number] [place] [address]- 9362 May, [facility] [place] [facility] [address] [id number] [place] [address]- 6684 May, [facility] [place] [facility] [address] [id number] [place] [address]- 5563 May, [facility] [place] [facility] [address] [id number] [place] [address]- 4969 May, [facility] [place] [facility] [address] [facility] [id number] [place] [address]- 7682 May, [facility] [place] [facility] [address] [id number] [place] [address]- 3512 Apr, [facility] [place] [facility] [address] [id number] [place] [address]- 7127 Apr, [facility] [place] [facility] [address] [facility] [id number] [place] [address]- 1275 Apr, [facility] [place] [facility] [address] [facility] [id number] [place] [address]- 2348 Apr, [facility] [place] [facility] [address] [id number] [address]- 7338 Apr, [facility] [place] [facility] [address] [id number] [place] [address]- 9427 Mar, [facility] [place] [facility] [address] [id number] [place] [address]- 7088 Mar, [facility] [place] [facility] [address] [facility] [id number] [address]- 1294 Mar, [facility] [place] [facility] [address] [id number] [place] [address]- 0894 Mar, [facility] [place] [facility] [address] [id number] [place] [address]- 2249 Mar, [facility] [place] [facility] [address] [id number] [place] [address]- 4146 Mar, [facility] [place] [facility] [address] [id number] [place] [address]- 7587 Feb, [facility] [place] [facility] [address] [id number] [place] [address]- 0199 Feb, [facility] [place] [facility] [address] [id number] [place] [address]- 2246 Feb, [facility] [place] [facility] [address] [id number] [place] [address]- 3302 Feb, [facility] [place] [facility] [address] [facility] [id number] [place] [address]- 2323 Feb, [facility] [place] [facility] [address] [id number] [place] [address]- 3286 Feb, [facility] [place] [facility] [address] [id number] [place] [address]- 0776 Feb, [facility] [place] [facility] [address] [id number] [place] [address]- 5843 Feb, [facility] [place] [facility] [address] [id number] [place] [address] Feb, [facility] [place] [facility] [address] [id number] [place] [address] Feb, [facility] [place] [facility] [address] [id number] [place] [address] Jan, [facility] [place] [facility] [address] [id number] [place] [address] Jan, [facility] [place] [facility] [address] [facility] [id number] [place] [address] Jan, [facility] [place] [facility] [address] [id number] [place] [address] Jan, [facility] [place] [facility] [address] [id number] [place] [address] Jan, [facility] [place] [facility] [address] [id number] [place] [address] Jan, [facility] [place] [facility] [address] [id number] [place] [address] Jan, [facility] [place] [facility] [address] [id number] [place] [address] Jan, [facility] [place] [facility] [address] [id number] [place] [address] Jan, [facility] [place] [facility] [address] [id number] [place] [address] Jan, [facility] [place] [facility] [address] [id number] [place] [address] Dec, [facility] [place] [facility] [address] [id number] [place] [address] Dec, [facility] [place] [facility] [address] [id number] [place] [address] Dec, [facility] [place] [facility] [address] [id number] [place] [address] Dec, [facility] [place] [facility] [address] [id number] [place] [address] Dec, [facility] [place] [facility] [address] [id number] [place] [address] Dec, [facility] [place] [facility] [address] [id number] [place] [address] Dec, [facility] [place] [facility] [address] [id number] [place] [address] Dec, [facility] [place] [facility] [address] [id number] [place] [address] Dec, [facility] [place] [facility] [address] [id number] [place] [address] Dec, [facility] [place] [facility] [address] [id number] [place] [address] Dec, [facility] [place] [facility] [address] [id number] [place] [address] Dec, [facility] [place] [facility] [address] [id number] [place] [address] Dec, [facility] [place] [facility] [address] [id number] [place] [address] Dec, [facility] [place] [facility] [address] [id number] [place] [address] Dec, [facility] [place] [facility] [address] [id number] [place] [address] 30 Nov, 2013 [facility] [place] [facility] [address] [id number] [place] [address] 30 Nov, 2013 [facility] [place] [facility] [address] [id number] [place] [address] 26 Nov, 2013 [facility] [place] [facility] [address] [id number] [place] [address] 1582 26 Nov, 2013 [facility] [place] [facility] [address] [id number], [place] [address] 24 Sep, 2013 [facility] [place] [facility] [address] [id number], [place] [address] 94[address] 24 Sep, 2013 [facility] [place] [facility] [address] [id number] [place] [address] 53[address] 23 Sep, 2013 [facility] [place] [facility] [address] [id number] [place] [address] 7485 23 Nov, 2013 [facility] [place] [facility] [address] [id number] [place] [address]- 5863 18 Nov, 2013 [facility] [place] [facility] [address] [id number] [place] [address] 3840 18 Nov, 2013 [facility] [place] [facility] [address] [id number] [place] [address]- 4146 17 Nov, 2013 [facility] [place] [facility] [address] [id number] [place] [address]- 4156 17 Nov, 2013 [facility] [place] [facility] [address] [id number] [place] [address]- 3056 11 Nov, 2013 [facility] [place] [facility] [address] [id number] [place] [address] 2546 11 Nov, 2013 [facility] [place] [facility] [address] [id number] [place] [address]- 6226 10 Nov, 2013 [facility] [place] [facility] [address] [id number] [place] [address]- 7476 10 Nov, 2013 [facility] [place] [facility] [address] [id number] [place] [address] 6386 08 Nov, 2013 [facility] [place] [facility] [address] [id number] [place] [address]- 5180 08 Nov, 2013 [facility] [place] [facility] [address] [id number] [place] [address]- 0360 Sep, 2013 [facility] [place] [facility] [address] [id number] [place] [address]- 6391 Sep, [facility] [place] [facility] [address] [id number] [place] [address]- 3423 Sep, 2013 [facility] [place] [facility] [address] [id number] [place] [address]- 3976 Sep, 2013 [facility] [place] [facility] [address] [id number] [place] [address]- 4382 Sep, [facility] [place] [facility] [address] [id number] [place] [address]- 5245 Sep, 2013 [facility] [place] [facility] [address] [id number] [place] [address]- 3737 Aug, [facility] [place] [facility] [address] [id number] [place] [address] 4870 Aug, [facility] [place] [facility] [address] [id number] [place] [address]- 3558 Aug, [facility] [place] [facility] [address] [id number] [place] [address]- 0415 Aug, [facility] [place] [facility] [address] [id number] [place] [address]- 4182 Aug, [facility] [place] [facility] [address] [id number] [place] [address]- 3618 Aug, [facility] [place] [facility] [address] [id number] [place] [address]- 0975 Aug, [facility] [place] [facility] [address] [id number] [place] [address]- 6994 Aug, [facility] [place] [facility] [address] [id number] [place] [address]- 5154 Aug, [facility] [place] [facility] [address] [id number] [place] [address] 8673 Aug, [facility] [place] [facility] [address] [id number] [place] [address]- 9898 Aug, [facility] [place] [facility] [address] [id number] [place] [address]- 5125 July, [facility] [place] [facility] [address] [id number] [place] [address]- 1231 July, [facility] [place] [facility] [address] [id number] [place] [address]- 3101 Jun, [facility] [place] [facility] [address] [id number] [place] [address]- 0151 Jun, [facility] [place] [facility] [address] [id number] [place] [address]- 0552 Jun, [facility] [place] [facility] [address] [id number] [place] [address]- 6047 18 Jun, 2013 [facility] [place] [facility] [address] [id number] [place] [address]- 9088 18 Jun, 2013 [facility] [place] [facility] [address] [id number] [place] [address]- 8957 18 Jun, 2013 [facility] [place] [facility] [address] [id number] [place] [address]- 3784 15 Jun, 2013 [facility] [place] [facility] [address] [id number] [place] [address]- 7672 15 Jun, 2013 [facility] [place] [facility] [address] [id number] [place] [address]- 4502 Jun, [facility] [place] [facility] [address] [id number] [place] [address]- 4074 Jun, [facility] [place] [facility] [address] [id number] [place] [address]- 9938 Jun, [facility] [place] [facility] [address] [id number] [place] [address]- 2129 Jun, [facility] [place] [facility] [address] [id number] [place] [address]- 5133 May, [facility] [place] [facility] [address] [id number] [place] [address]- 9237 May, [facility] [place] [facility] [address] [id number] [place] [address]- 2719 May, [facility] [place] [facility] [address] [id number] [place] [address]- 9267 May, [facility] [place] [facility] [address] [id number] [place] [address]- 5649 May, [facility] [place] [facility] [address] [id number] [place] [address]- 9702 19 May, 2013 [facility] [place] [facility] [address] [id number] [place] [address]- 9774 May, [facility] [place] [facility] [address] [id number] [place] [address]- 6514 May, [facility] [place] [facility] [address] [id number] [place] [address]- 3972 May, [facility] [place] [facility] [address] [id number] [place] [address]- 4449 May, [facility] [place] [facility] [address] [id number] [place] [address]- 8041 May, [facility] [place] [facility] [address] [id number] [place] [address]- 4431 May, [facility] [place] [facility] [address] [id number] [place] [address]- 8417 Apr, [facility] [place] [facility] [address] [facility] [id number] [place] [address]- 4372 Apr, [facility] [place] [facility] [address] [id number] [place] [address]- 4641 Apr, [facility] [place] [facility] [address] [id number] [place] [address]- 6371 Apr, [facility] [place] [facility] [address] [facility] [id number] [place] [address]- 2478 Apr, [facility] [place] [facility] [address] [facility] [id number] [place] [address]- 2798 Apr, [facility] [place] [facility] [address] [facility] [id number] [place] [address]- 6664 Apr, [facility] [place] [facility] [address] [id number] [place] [address] 1961 Apr, [facility] [place] [facility] [address] [id number] [place] [address]- 5225 Apr, [facility] [place] [facility] [address] [facility] [id number] [place] [address]- 0677 Apr, [facility] [place] [facility] [address] [facility] [id number] [place] [address]- 1571 Apr, [facility] [place] [facility] [address] [id number] [place] [address]- 8736 Apr, [facility] [place] [facility] [address] [id number] [place] [address]- 9075 Apr, 2013 [facility] [place] [facility] [address] [id number] [place] [address]- 3566 Apr, [facility] [place] [facility] [address] [id number] [place] [address]- 1487 Apr, [facility] [place] [facility] [address] [id number] [place] [address]- 5650 Apr, [facility] [place] [facility] [address] [id number] [place] [address]- 4636 Apr, [facility] [place] [facility] [address] [facility] [id number] [place] [address]- 5742 Jan, [facility] [place] [facility] [address] [id number] [place] [address]- 7443 Jan, [facility] [place] [facility] [address] [facility] [id number] [place] [address]- 5659 Jan, [facility] [place] [facility] [address] [facility] [id number] [place] [address]- 4415 Jan, [facility] [place] [facility] [address] [id number] [place] [address]- 5967 Jan, [facility] [place] [facility] [address] [id number] [place] [address]- 0094 Jan, [facility] [place] [facility] [address] [id number] [place] [address]- 2404 Jan, [facility] [place] [facility] [address] [facility] [id number] [place] [address]- 5053 Dec, [facility] [place] [facility] [address] [id number] [place] [address]- 6442 Dec, [facility] [place] [facility] [address] [id number] [place] [address]- 6985 Dec, [facility] [place] [facility] [address] [id number] [place] [address]- 2915 Nov, [facility] [place] [facility] [address] [id number] [place] [address]- 8886 Nov, [facility] [place] [facility] [address] [id number] [place] [address]- 9219 Nov, [facility] [place] [facility] [address] [id number] [place] [address]- 3264 Nov, [facility] [place] [facility] [address] [id number] [place] [address]- 5024 Oct, [facility] [place] [facility] [address] [id number] [place] [address]- 8588 Oct, [facility] [place] [facility] [address] [id number] [place] [address]- 3341 Oct, [facility] [place] [facility] [address] [id number] [place] [address]- 1235 Oct, [facility] [place] [facility] [address] [id number] [place] [address]- 2869 Oct, [facility] [place] [facility] [address] [id number] [place] [address]- 2003 Sep, [facility] [place] [facility] [address] [id number] [place] [address]- 2605 Sep, [facility] [place] [facility] [address] [id number] [place] [address]- 4521 Sep, [facility] [place] [facility] [address] [id number] [place] [address]- 5625 Sep, [facility] [place] [facility] [address] [id number] [place] [address]- 7563 Sep, [facility] [place] [facility] [address] [id number] [place] [address]- 2546 Sep, [facility] [address] [id number] [place] [address]- 7874 Sep, [facility] [address] [id number] [place] [address]- 9450 Aug, [facility] [address] [id number] [place] [address]- 7403 Aug, [facility] [place] [facility] [address] [id number] [place] [address]- 2854 July, [facility] [address] [id number] [place] [address]- 9426 Jun, [facility] [place] [facility] [address] [id number] [place] [address]- 0618 Jun, [facility] [address] [id number] [place] [address]- 1643 Jun, [facility] [place] [facility] [address] [id number] [place] [address]- 8045 Apr, [facility] [address] [id number] [place] [address]- 2249 Apr, [facility] [place] [facility] [address] [id number] [place] [address]- 8347 Apr, [facility] [address] [id number] [place] [address]- 4189 Mar, [facility] [place] [facility] [address] [id number] [place] [address]- 2164 Mar, [facility] [place] [facility] [address] [id number] [place] [address]- 3788 Mar, [facility] [place] [facility] [address] [id number] [place] [address]- 4854 Mar, [facility] [place] [facility] [address] [id number] [place] [address]- 0136 Mar, [facility] [place] [facility] [address] [id number] [place] [address]- 9241 14 Feb, 2012 [facility] [place] [facility] [address] [id number] [place] [address]- 0934 14 Feb, 2012 [facility] [place] [facility] [address] [id number] [place] [address]- 5946 13 Jan, 2012 [facility] [place] [facility] [address] [id number] [place] [address]- 4790 13 Jan, 2012 [facility] [place] [facility] [address] [id number] [place] [address]- 6097 13 Jan, 2012 [facility] [place] [facility] [address] [id number] [place] [address]- 1295 13 Jan, 2012 [facility] [place] [facility] [address] [id number] [place] [address]- 9489 07 Jan, 2012 [facility] [place] [facility] [address] [id number] [place] [address]- 0688 Jan, [facility] [place] [facility] [address] [id number] [place] [address]- 8856 06 Jan, 2012 [facility] [place] [facility] [address] [id number] [place] [address]- 8893 31 Dec, 2011 [facility] [place] [facility] [address] [facility] [id number] [place] [address]- 4747 31 Dec, 2011 [facility] [place] [facility] [address] [id number] [place] [address]- 4538 30 Dec, 2011 [facility] [place] [facility] [address] [id number] [place] [address]- 4244 30 Dec, 2011 [facility] [place] [facility] [address] [id number] [place] [address]- 5876 30 Dec, 2011 [facility] [place] [facility] [address] [facility] [id number] [place] [address]- 0586 30 Dec, 2011 [facility] [place] [facility] [address] [id number] [place] [address]- 2112 Dec, [facility] [place] [facility] [address] [id number] [place] [address]- 0904 Dec, [facility] [place] [facility] [address] [id number] [place] [address]- 0528 Dec, [facility] [place] [facility] [address] [id number] [place] [address]- 3157 Dec, [facility] [place] [facility] [address] [id number] [place] [address]- 0286 Oct, [facility] [place] [facility] [address] [id number] [place] [address]- 1122 Oct, [facility] [place] [facility] [address] [id number] [place] [address]- 7997 Aug, [facility] [place] [facility] [address] [id number] [place] [address]- 4168 Aug, [facility] [place] [facility] [address] [id number] [place] [address]- 4618 July, [facility] [place] [facility] [address] [id number] [place] [address]- 4389 Jun, [facility] [place] [facility] [address] [id number] [place] [address]- 0346 Jun, [facility] [place] [facility] [address] [id number] [place] [address]- 7141 May, [facility] [place] [facility] [address] [id number], [place] [address]- 7217 Apr, [facility] [place] [facility] [address] [id number] [place] [address]- 2806 Apr, [facility] [place] [facility] [address] [id number], [place] [address]- 4146 Mar, [facility] [place] [facility] [address] [id number] [place] [address]- 9566 Mar, [facility] [place] [facility] [address] [id number] [place] [address]- 4030 19 Feb, 2011 [facility] [address] [id number] [place] [address]- 2076 15 Feb, 2011 [facility] [place] [facility] [address] [id number] [place] [address] 2546 13 Feb, 2011 [facility] [address] [id number] [place] [address]- 0066 13 Feb, 2011 [facility] [place] [facility] [address] [id number] [place] [address] 2547 Jan, [facility] [address] [id number] [place] [address]- 0259 17 Dec, 2010 [facility] [address] [id number] [place] [address]- 4008 08 Feb, 2010 [facility] [address] [id number] [place] [address]- 4586 02 Feb, 2010 [facility] [address] [id number] [place] [address]- 6162 Feb, [facility] [place] [facility] [address] [id number] [place] [address]- 9753 Feb, [facility] [address] [facility] [id number] [place] [address]- 6188 15 Dec, 2009 [facility] [place] [facility] [address] [id number] [place] [address]- 4588 15 Dec, 2009 [facility] [place] [facility] [address] [id number] [place] [address]- 2318 Oct, [facility] [place] [facility] [address] [id number] [place] [address]- 9448 15 Jun, 2009 [facility] [place] [facility] [address] [id number] [place] [address] 2543 Feb, [facility] [place] [facility] [address] [id number] [place] [address]- 7548 Feb, [facility] [address] [facility] [id number] [place] [address]- 5876 Feb, [facility] [address] [facility] [id number], [place] [address]- 9812 Dec, IMMUNIZATIONS No Known Immunizations SOCIAL HISTORY Never Assessed REASON FOR VISIT Future INR order PLAN OF CARE VITAL SIGNS MEDICATIONS Medication Instructions Dosage Frequency Start Date End Date Duration Status Coumadin 5 mg take 6mg on Thursday and 5 mg on all other days Unknown Lexapro 10 mg Orally Once a day 1 tablet 24h 90 days Unknown Vistaril 50 mg Orally every 6 hrs 1 capsule as needed 6h 90 days Unknown Hydrochlorothiazide 50 MG TAKE ONE TABLET BY MOUTH ONCE DAILY 90 Unknown Tylenol 325 MG Orally every 6 hrs 1 tablet as needed 6h Unknown Ondansetron 4 MG Orally every 8 hrs PRN 1 tablet on the tongue and allow to dissolve Apr, 05 days Unknown Omeprazole 10 MG Orally Once a day 1 capsule 24h Unknown RESULTS No Results PROCEDURES No Known procedures INSTRUCTIONS MEDICATIONS ADMINISTERED No Known Medications MEDICAL (GENERAL) HISTORY Type Description Date Medical History obesity Medical History Hematologic disorder factor clotting problem Medical History DVT's Surgical History Lap Band 10/2012 Surgical History section 1985, 1987 Surgical History cholecystectomy Surgical History [place] Filter 06/2009 Surgical History Left leg exploratory surgery r/t clot 1987 Surgical History left shoulder surgery 09/14/17 Hospitalization History Ruptured Ovarian Cyst with abd bleeding 11/2009
--- OUTSIDE RECORDS SUMMARY | 2018-08-02 09:09 | XMS REPORT ---
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 Active 539771836 Problem Factor V Leiden D68.51 Active 015953530 Problem History of DVT (deep vein thrombosis) Z86.718 Active 183800966 Problem Excessive daytime sleepiness G47.19 Active 232475475254 Problem Gastroesophageal reflux disease, esophagitis presence not specified K21.9 Active 522349513 Problem Pelvic pain R10.2 Active 25751323 Problem 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 Active 943350690 Problem Presence of IVC filter Z95.828 Active 847240855 Problem Peripheral edema R60.9 Active 499049383 ALLERGIES No Information SOCIAL HISTORY Never Assessed PLAN OF CARE VITAL SIGNS MEDICATIONS Unknown Medications RESULTS No Results PROCEDURES No Known procedures IMMUNIZATIONS No Known Immunizations MEDICAL (GENERAL) HISTORY Type Description Date Medical History obesity Medical History Hematologic disorder factor clotting problem Medical History DVT's Surgical History Lap Band 10/2012 Surgical History section 1985, 1987 Surgical History cholecystectomy Surgical History [place] Filter 06/2009 Surgical History Left leg exploratory surgery r/t clot 1987 Hospitalization History Ruptured Ovarian Cyst with abd bleeding 11/2009
--- OUTSIDE RECORDS SUMMARY | 2018-08-02 09:10 | XMS REPORT ---
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
--- OUTSIDE RECORDS SUMMARY | 2018-08-02 09:10 | XMS REPORT ---
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
--- OUTSIDE RECORDS SUMMARY | 2018-08-02 09:10 | XMS REPORT ---
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 Z79.01 Active 052417672 Problem Factor V Leiden D68.51 Active 762634007 Problem History of DVT (deep vein thrombosis) Z86.718 Active 963742769 Problem Excessive daytime sleepiness G47.19 Active 187786907022 Problem Gastroesophageal reflux disease, esophagitis presence not specified K21.9 Active 157711397 Problem Pelvic pain R10.2 Active 51425478 Problem 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 Active 339158485 Problem Presence of IVC filter Z95.828 Active 155538396 Problem Peripheral edema R60.9 Active 292860389 ALLERGIES No Information SOCIAL HISTORY Never Assessed PLAN OF CARE VITAL SIGNS MEDICATIONS Unknown Medications RESULTS No Results PROCEDURES No Known procedures IMMUNIZATIONS No Known Immunizations MEDICAL (GENERAL) HISTORY Type Description Date Medical History obesity Medical History Hematologic disorder factor clotting problem Medical History DVT's Surgical History Lap Band 10/2012 Surgical History section 1985, 1987 Surgical History cholecystectomy Surgical History [place] Filter 06/2009 Surgical History Left leg exploratory surgery r/t clot 1987 Hospitalization History Ruptured Ovarian Cyst with abd bleeding 11/2009
--- OUTSIDE RECORDS SUMMARY | 2018-08-02 09:10 | XMS REPORT ---
Author Author ASHLEY BRUNO eClinicalWorks Address Unknown Phone Unavailable Care Team Providers Care Quality Control Specialist Name Role Phone ASHLEY BRUNO Unavailable Allergies No Known Allergies Problems Problem Type Condition Code Onset Dates Condition Status Problem Peripheral edema R60.9 Active Assessment History of DVT (deep vein thrombosis) Z86.718 Active Problem Generalized anxiety disorder F41.1 Active Problem Hypertriglyceridemia E78.1 Active Problem History of DVT (deep vein thrombosis) Z86.718 Active Problem Presence of IVC filter Z95.828 Active Problem snf (current) use of anticoagulants Z79.01 Active Problem Pelvic pain R10.2 Active Problem 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 Active Medications No Known Medications Results No Known Results Summary Purpose eClinicalWorks Submission
--- OUTSIDE RECORDS SUMMARY | 2018-08-02 09:10 | XMS REPORT ---
Author Author KIANA ASHLEY [facility] Address [address] [place] [address] Care Team Providers Care Hydraulic Specialist Name Role Phone ELMO BRUNOY Unavailable PROBLEMS Type Condition ICD9-CM Code [id number] Code Onset Dates Condition Status SNOMED Code Problem Generalized anxiety disorder F41.1 Active 076379275 Problem 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 Active 116577426 Problem History of DVT (deep vein thrombosis) Z86.718 Active 112806836 Problem Factor V Leiden D68.51 Active 725350052 Problem Hypertriglyceridemia E78.1 Active 739257608 Problem FDC (current) use of anticoagulants Z79.01 Active 777847244 Problem Thyroid nodule E04.1 Active 418717224 Problem Excessive daytime sleepiness G47.19 Active 547478931825 Problem Peripheral edema R60.9 Active 795970753 Problem Pelvic pain R10.2 Active 30415752 Problem Gastroesophageal reflux disease, esophagitis presence not specified K21.9 Active 236839196 Problem Presence of IVC filter Z95.828 Active 032049391 ALLERGIES No Information ENCOUNTERS Encounter Location Date Diagnosis [place] [address], [place] [address] Aug, [facility] [id number] [place] [address] 05143- 5117 Aug, [facility] [id number] [place] [address] 12271- 0411 Aug, Acute pain of left shoulder M25.512 and Thyroid nodule E04.1 [facility] [id number] [place] [address] 78681- 5753 July, Superior glenoid labrum lesion of left shoulder, subsequent encounter S43.432D [place] [id number] [place] [address] 07008- 6608 Jun, History of DVT (deep vein thrombosis) Z86.718 [facility] [id number] [place] [address] 12908- 4259 Jun, History of DVT (deep vein thrombosis) Z86.718 [place] [address] [id number] [place] [address] 79111- 3297 Jun, Impingement syndrome, shoulder, left M75.42 [place] [address] [id number] [place] [address] 91252- 0038 May, Subacromial bursitis of left shoulder joint M75.52 [place] [id number] [place] [address] 95997- 5318 May, [place] [id number] [place] [address] 91338- 9927 May, Hypertriglyceridemia E78.1 ; FDC (current) use of anticoagulants Z79.01 and Excessive daytime sleepiness G47.19 [place] [address] [id number] [place] [address] 70939- 7342 May, History of DVT (deep vein thrombosis) Z86.718 ; Generalized anxiety disorder F41.1 ; Hypertriglyceridemia E78.1 ; 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 ; Subacromial bursitis of left shoulder joint M75.52 and Excessive daytime sleepiness G47.19 [place] [id number] [place] [address] 05117- 2045 May, [place] [address] [id number] [place] [address] 28160- 8661 May, FDC (current) use of anticoagulants Z79.01 [place] [id number] [place] [address] 54499- 4778 Apr, FDC (current) use of anticoagulants Z79.01 [place] [id number] [place] [address] 75252- 6816 Apr, FDC (current) use of anticoagulants Z79.01 [facility] [id number] [place] [address] 88110 2546 Apr, FDC (current) use of anticoagulants Z79.01 [facility] [id number] [place] [address] 10855 2546 Apr, [facility] [address] [address] 2546 Apr, FDC (current) use of anticoagulants Z79.01 [facility] [id number] [place] [address] 27627 2546 13 Apr, 2017 FDC (current) use of anticoagulants Z79.01 [facility] [id number] [place] [address] 63923 2546 Apr, FDC (current) use of anticoagulants Z79.01 [facility] [id number] [place] [address] 83228 2546 Apr, FDC (current) use of anticoagulants Z79.01 [facility] [id number] [place] [address] 78723 2546 Apr, 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 [facility] [id number] [place] [address] 23943 2546 Apr, FDC (current) use of anticoagulants Z79.01 [facility] [id number] [place] [address] 48719 2546 Mar, FDC (current) use of anticoagulants Z79.01 [facility] [id number] [place] [address] 85914 2546 Mar, [facility] [id number] [place] [address] 24820 2546 Mar, 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 [facility] [id number] [place] [address] [id number] Jan, Dental examination Z01.20 [facility] [id number] [place] [address] [id number] Jan, [facility] [id number] [place] [address] 58791- 8834 Jan, FDC (current) use of anticoagulants Z79.01 [facility] [id number] [place] [address] 91740- 2658 Jan, History of DVT (deep vein thrombosis) Z86.718 [facility] [address] [id number] [place] [address] 54270- 0216 Jan, Generalized anxiety disorder F41.1 and Peripheral edema R60.9 [facility] [address] [id number] [place] [address] 10720- 5752 Nov, History of DVT (deep vein thrombosis) Z86.718 [facility] [id number] [place] [address] 25531- 9143 Nov, 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 [facility] [address] [place] [address] 31389 -9685 Nov, Acute non-recurrent maxillary sinusitis J01.00 [facility] [id number] [place] [address] 33276- 3695 Oct, 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 [facility] [id number] [place] [address] 24100- 8336 Oct, Personal history of venous thrombosis and embolism Z86.718 [facility] [id number] [place] [address] 74781- 3249 Sep, [facility] [id number] [place] [address] 27877- 7046 Sep, Personal history of venous thrombosis and embolism Z86.718 [facility] [id number] [place] [address] 34912- 1849 Sep, FDC (current) use of anticoagulants Z79.01 [place] [address] [id number] [place] [address] 46229- 1564 Sep, [facility]DC (current) use of anticoagulants Z79.01 [place] [address] [place] [address] [id number] [place] [address] 15438- 8188 Sep, Generalized anxiety disorder F41.1 and History of DVT (deep vein thrombosis) Z86.718 [place] [address] [id number] [place] [address] 17880- 9712 Aug, History of DVT (deep vein thrombosis) Z86.718 ; Generalized anxiety disorder F41.1 ; 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 ; Pelvic pain R10.2 ; Hypertriglyceridemia E78.1 ; Excessive daytime sleepiness G47.19 ; Colon cancer screening Z12.11 ; Screening for breast cancer Z12.39 ; Peripheral edema R60.9 and Gastroesophageal reflux disease, esophagitis presence not specified K21.9 [place] [address] [id number] [place] [address] 43424- 5878 Aug, [place] [address] [address] [id number] [place] [address] 77654- 2773 July, [place] [address] [id number] [place] [address] 92040- 3198 July, History of DVT (deep vein thrombosis) Z86.718 [place] [address] [id number] [place] [address] 93684- 0416 Jun, Generalized anxiety disorder F41.1 [place] [address] [id number] [place] [address] 48777- 0681 Jun, History of DVT (deep vein thrombosis) Z86.718 [place] [address] [place] [id number] [place] [address] 01141- 5514 Jun, History of DVT (deep vein thrombosis) Z86.718 [place] [address] [place] [address]- 2070 Jun, History of DVT (deep vein thrombosis) Z86.718 [facility] [address] [id number] [place] [address] 60357- 4817 Jun, History of DVT (deep vein thrombosis) Z86.718 [facility] [address] [id number] [place] [address] 13359- 5519 May, History of DVT (deep vein thrombosis) Z86.718 [facility] [address] [id number] [place] [address] 93437- 4668 May, 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 [place] [address] 13904- 6265 May, 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 [place] [address] [place] [id number] [place] [address] 44677- 9260 May, History of DVT (deep vein thrombosis) Z86.718 [facility] [address] [id number] [place] [address] 47892 -2732 Apr, Bacterial conjunctivitis of left eye H10.9 and H/O motion sickness Z87.898 [facility] [id number] [place] [address] 99023- 9744 Apr, History of DVT (deep vein thrombosis) Z86.718 [facility] [address] [id number] [place] [address] 79581- 9496 Apr, History of DVT (deep vein thrombosis) Z86.718 [place] [address] [id number] [place] [address] 97021- 7342 Apr, History of DVT (deep vein thrombosis) Z86.718 [facility] [address] [id number] [place] [address] 24291- 2832 14 Apr, 2016 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 [facility] [address], [place] [address]- 6772 Mar, [facility] [address] [place] [id number] [place] [address] 22112- 3196 Mar, [facility]DC (current) use of anticoagulants Z79.01 [facility] [id number] [place] [address] 81398 2546 Mar, Hypertriglyceridemia E78.1 and 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 [place] [address] [id number] [place] [address] 29972 2546 Feb, FDC (current) use of anticoagulants Z79.01 [place] [address] [id number] [place] [address] 04873 2546 Feb, FDC (current) use of anticoagulants Z79.01 [place] [address] [place] [id number] [place] [address] 61152- 6356 Feb, 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 [place] [id number] [place] [address] 31522 2546 Dec, [place] [address] [place] [id number] [place] [address] 19327- 7716 Nov, [place] [address] [place] [address] 65710- 0156 Nov, History of DVT (deep vein thrombosis) Z86.718 ; Tremulousness R25.1 ; Generalized anxiety disorder F41.1 ; Peripheral edema R60.9 and Hypertriglyceridemia E78.1 [place] [address], [place] [address] 2546 Oct, History of DVT (deep vein thrombosis) Z86.718 [place] [address] [place] [address] 45839 2546 Oct, [place] [address] [place] [address] 22624- 2546 Sep, History of DVT (deep vein thrombosis) Z86.718 [facility] [address] [place] [address] 46659- 9760 Sep, 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 [facility] [id number] [place] [address] 05308- 4913 July, [facility] [id number] [place] [address] 58226- 4846 July, 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 [facility] [address] [place] [id number] [place] [address] 37635- 2415 July, 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 [place] [address] [id number] [place] [address] 29863- 1342 Jun, FDC (current) use of anticoagulants Z79.01 [facility] [id number] [place] [address] 04678 -0988 Jun, Coccyx pain M53.3 ; Encounter for therapeutic drug level monitoring Z51.81 and 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 service current use 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.01 [facility] [address] [place] [id number] [place] [address] 32365- 0674 May, Abnormal mammogram R92.8 [facility] [id number] [place] [address] 03731 -6962 May, [facility] [id number] [place] [address] 89193 -4399 May, Acute vaginitis N76.0 and Encounter for other screening for malignant neoplasm of breast Z12.39 [place] [address] [id number] [place] [address] 98690- 0023 Apr, [facility] [id number] [place] [address] 68191- 1950 Apr, [facility] [address] [id number] [place] [address] 15239- 5278 Apr, Peripheral edema R60.9 [facility] [id number] [place] [address] 19087 2546 Apr, FDC (current) use of anticoagulants Z79.01 [facility] [address] [place] [id number] [place] [address] 02994 2546 Apr, Peripheral edema R60.9 and 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 [place] [address] [id number] [place] [address] 68999 2546 Apr, FDC (current) use of anticoagulants Z79.01 [place] [address] [place] [id number] [place] [address] 05495 2546 Apr, [place] [address] [id number] [place] [address] 80038 2546 Apr, [facility]DC (current) use of anticoagulants Z79.01 [place] [address] [id number] [place] [address] 47127 2546 Apr, Peripheral edema R60.9 [place] [address] [id number] [place] [address] 84583 2546 Mar, 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 [place] [address] [id number] [place] [address] 62628 2546 Mar, 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 and Hypertriglyceridemia E78.1 [place] [address] [place] [address] 48824 2546 Mar, FDC (current) use of anticoagulants Z79.01 [place] [address] [id number] [place] [address] 38855 2546 Mar, 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 [place] [address] [id number] [place] [address] 92617 2546 Mar, [place] [address] [place] [address]- 0122 Mar, 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 ; Hypertriglyceridemia E78.1 ; Personal history of venous thrombosis and embolism Z86.718 and Lump R22.9 [place] [address] [place] [address] 13745- 5145 Mar, Personal history of venous thrombosis and embolism Z86.718 [place] [address] [id number] [place] [address] 64971- 8502 Mar, Personal history of venous thrombosis and embolism Z86.718 [place] [address] [id number] [place] [address] 35579- 2229 Mar, [place] [address] [id number] [place] [address] 54244- 6836 Dec, Personal history of venous thrombosis and embolism Z86.718 [place] [address] [id number] [place] [address] 17251- 4989 Dec, Personal history of venous thrombosis and embolism V12.51 [place] [address] [id number] [place] [address] 88240- 6439 Nov, Personal history of venous thrombosis and embolism V12.51 [place] [address] [place] [address] 97812- 4829 Nov, Personal history of venous thrombosis and embolism V12.51 [place] [address] [place] [address] 98365- 8312 Nov, Personal history of venous thrombosis and embolism V12.51 [place] [address] [place] [address] 21874- 0816 Nov, Personal history of venous thrombosis and embolism V12.51 [place] [address] [place] [address] 14660- 6158 Nov, [place] [id number] [place] [address] 47511- 7068 Oct, Dysuria 788.1 [facility] [address], [place] [address]- 3278 Oct, Personal history of venous thrombosis and embolism V12.51 [facility] [address], [place] [address]- 9689 Oct, [facility] [address], [place] [address]- 2144 Oct, Personal history of venous thrombosis and embolism V12.51 [facility] [address] [place] [address] 24854- 7165 Sep, Personal history of venous thrombosis and embolism V12.51 [facility] [address] [place] [address] 70970- 4231 Sep, Personal history of venous thrombosis and embolism V12.51 [facility] [address] [place] [address] 70902- 7178 Aug, Personal history of venous thrombosis and embolism V12.51 [facility] [address], [place] [address]- 1173 Aug, Personal history of venous thrombosis and embolism V12.51 [facility] [address], [place] [address]- 0678 Aug, Personal history of venous thrombosis and embolism V12.51 [facility] [address], [place] [address]- 7059 July, Generalized anxiety disorder 300.02 ; Abdominal pain, left lower quadrant 789.04 and Personal history of venous thrombosis and embolism V12.51 [facility] [address], [place] [address]- 9137 Jun, [facility] [address] [place] [address]- 7326 Jun, [facility] [address], [place] [address]- 9443 May, [facility] [place] [facility] [address] [id number] [place] [address]- 4484 May, [facility] [place] [facility] [address] [id number] [place] [address]- 9468 May, [facility] [place] [facility] [address] [id number] [place] [address]- 4816 May, [facility] [place] [facility] [address] [id number] [place] [address]- 6164 May, [facility] [place] [facility] [address] [id number] [place] [address]- 2921 May, [facility] [place] [facility] [address] [id number] [place] [address]- 5455 May, [facility] [place] [facility] [address] [facility] [id number] [place] [address]- 7970 May, [facility] [place] [facility] [address] [id number] [place] [address]- 8308 Apr, [facility] [place] [facility] [address] [id number] [place] [address]- 1908 Apr, [facility] [place] [facility] [address] [facility] [id number] [place] [address]- 7220 Apr, [facility] [place] [facility] [address] [facility] [id number] [place] [address]- 7388 Apr, [facility] [place] [facility] [address] [id number], [place] [address]- 9416 Apr, [facility] [place] [facility] [address] [id number] [place] [address]- 4630 Mar, [facility] [place] [facility] [address] [id number] [place] [address]- 2891 Mar, [facility] [place] [facility] [address] [facility] [id number] [address]- 5695 Mar, [facility] [place] [facility] [address] [id number] [place] [address]- 1020 Mar, [facility] [place] [facility] [address] [id number] [place] [address]- 2220 Mar, [facility] [place] [facility] [address] [id number] [place] [address]- 9265 Mar, [facility] [place] [facility] [address] [id number] [place] [address]- 6384 Feb, [facility] [place] [facility] [address] [id number] [place] [address]- 1306 Feb, [facility] [place] [facility] [address] [id number] [place] [address]- 1587 Feb, [facility] [place] [facility] [address] [id number] [place] [address]- 7963 Feb, [facility] [place] [facility] [address] [facility] [id number] [place] [address] Feb, [facility] [place] [facility] [address] [id number] [place] [address] Feb, [facility] [place] [facility] [address] [id number] [place] [address] Feb, [facility] [place] [facility] [address] [id number] [place] [address] Feb, [facility] [place] [facility] [address] [id number] [place] [address] Feb, [facility] [place] [facility] [address] [id number] [place] [address] Feb, [facility] [place] [facility] [address] [id number] [place] [address] Jan, [facility] [place] [facility] [address] [id number] [place] [address] Jan, [facility] [place] [facility] [address] [facility] [id number] [place] [address] Jan, [facility] [place] [facility] [address] [id number] [place] [address] Jan, [facility] [place] [facility] [address] [id number] [place] [address] Jan, [facility] [place] [facility] [address] [id number] [place] [address] Jan, [facility] [place] [facility] [address] [id number] [place] [address] Jan, [facility] [place] [facility] [address] [id number] [place] [address] Jan, [facility] [place] [facility] [address] [id number] [place] [address] Jan, [facility] [place] [facility] [address] [id number] [place] [address] Jan, [facility] [place] [facility] [address] [id number] [place] [address] Dec, [facility] [place] [facility] [address] [id number] [place] [address] Dec, [facility] [place] [facility] [address] [id number] [place] [address] Dec, [facility] [place] [facility] [address] [id number] [place] [address] Dec, [facility] [place] [facility] [address] [id number] [place] [address] Dec, [facility] [place] [facility] [address] [id number] [place] [address] Dec, [facility] [place] [facility] [address] [id number] [place] [address] Dec, [facility] [place] [facility] [address] [id number] [place] [address] Dec, [facility] [place] [facility] [address] [id number] [place] [address] Dec, [facility] [place] [facility] [address] [id number] [place] [address] Dec, [facility] [place] [facility] [address] [id number] [place] [address] Dec, [facility] [place] [facility] [address] [address] [id number] [place] [address] Dec, [facility] [place] [facility] [address] [id number] [place] [address] Dec, [facility] [place] [facility] [address] [id number] [place] [address] 7980 Dec, [facility] [place] [facility] [address] [id number] [place] [address] 5676 Dec, [facility] [place] [facility] [address] [id number] [place] [address] 8210 30 Nov, 2013 [facility] [place] [facility] [address] [id number] [place] [address] 0143 30 Nov, 2013 [facility] [place] [facility] [address] [id number] [place] [address] 5350 26 Nov, 2013 [facility] [place] [facility] [address] [id number] [place] [address] 2137 26 Nov, 2013 [facility] [place] [facility] [address] [id number], [place] [address] 87[address] 24 Sep, 2013 [facility] [place] [facility] [address] [id number], [place] [address] 39[address] 24 Sep, 2013 [facility] [place] [facility] [address] [id number] [place] [address] 23 Sep, 2013 [facility] [place] [facility] [address] [id number] [place] [address]- 0049 23 Nov, 2013 [facility] [place] [facility] [address] [id number] [place] [address]- 6233 18 Nov, 2013 [facility] [place] [facility] [address] [id number] [place] [address]- 5786 18 Nov, 2013 [facility] [place] [facility] [address] [id number] [place] [address]- 7686 17 Nov, 2013 [facility] [place] [facility] [address] [id number] [place] [address]- 8686 17 Nov, 2013 [facility] [place] [facility] [address] [id number] [place] [address]- 8396 11 Nov, 2013 [facility] [place] [facility] [address] [id number] [place] [address] 2546 11 Nov, 2013 [facility] [place] [facility] [address] [id number] [place] [address]- 1998 10 Nov, 2013 [facility] [place] [facility] [address] [id number] [place] [address]- 2932 10 Nov, 2013 [facility] [place] [facility] [address] [id number] [place] [address]- 1623 08 Nov, 2013 [facility] [place] [facility] [address] [id number] [place] [address]- 5295 08 Nov, 2013 [facility] [place] [facility] [address] [id number] [place] [address]- 1525 Sep, 2013 [facility] [place] [facility] [address] [id number] [place] [address]- 2411 Sep, [facility] [place] [facility] [address] [id number] [place] [address]- 0840 Sep, 2013 [facility] [place] [facility] [address] [id number] [place] [address]- 2576 Sep, 2013 [facility] [place] [facility] [address] [id number] [place] [address]- 2772 Sep, [facility] [place] [facility] [address] [id number] [place] [address]- 2677 Sep, 2013 [facility] [place] [facility] [address] [id number] [place] [address]- 1498 Aug, [facility] [place] [facility] [address] [id number] [place] [address]- 5727 Aug, [facility] [place] [facility] [address] [id number] [place] [address]- 6739 Aug, [facility] [place] [facility] [address] [id number] [place] [address]- 6523 Aug, [facility] [place] [facility] [address] [id number] [place] [address]- 2229 Aug, [facility] [place] [facility] [address] [id number] [place] [address]- 3460 Aug, [facility] [place] [facility] [address] [id number] [place] [address]- 2862 Aug, [facility] [place] [facility] [address] [id number] [place] [address]- 6610 Aug, [facility] [place] [facility] [address] [id number] [place] [address]- 9424 Aug, [facility] [place] [facility] [address] [id number] [place] [address]- 9511 Aug, [facility] [place] [facility] [address] [id number] [place] [address]- 3118 Aug, [facility] [place] [facility] [address] [id number] [place] [address]- 3855 July, [facility] [place] [facility] [address] [id number] [place] [address]- 5765 July, [facility] [place] [facility] [address] [id number] [place] [address]- 9550 Jun, [facility] [place] [facility] [address] [id number] [place] [address]- 1274 Jun, [facility] [place] [facility] [address] [id number] [place] [address]- 5260 Jun, [facility] [place] [facility] [address] [id number] [place] [address]- 4925 18 Jun, 2013 [facility] [place] [facility] [address] [id number] [place] [address]- 0506 18 Jun, 2013 [facility] [place] [facility] [address] [id number] [place] [address]- 7180 18 Jun, 2013 [facility] [place] [facility] [address] [id number] [place] [address]- 9273 15 Jun, 2013 [facility] [place] [facility] [address] [id number] [place] [address]- 9523 15 Jun, 2013 [facility] [place] [facility] [address] [id number] [place] [address]- 5700 Jun, [facility] [place] [facility] [address] [id number] [place] [address]- 2555 Jun, [facility] [place] [facility] [address] [id number] [place] [address]- 2733 Jun, [facility] [place] [facility] [address] [id number] [place] [address]- 5802 Jun, [facility] [place] [facility] [address] [id number] [place] [address]- 3229 May, [facility] [place] [facility] [address] [id number] [place] [address]- 1622 May, [facility] [place] [facility] [address] [id number] [place] [address]- 0509 May, [facility] [place] [facility] [address] [id number] [place] [address]- 9501 May, [facility] [place] [facility] [address] [id number] [place] [address]- 6703 May, [facility] [place] [facility] [address] [id number] [place] [address]- 1333 19 May, 2013 [facility] [place] [facility] [address] [id number] [place] [address]- 3697 May, [facility] [place] [facility] [address] [id number] [place] [address]- 1306 May, [facility] [place] [facility] [address] [id number] [place] [address]- 8284 May, [facility] [place] [facility] [address] [id number] [place] [address]- 8669 May, [facility] [place] [facility] [address] [id number] [place] [address]- 2657 May, [facility] [place] [facility] [address] [id number] [place] [address]- 5764 May, [facility] [place] [facility] [address] [id number] [place] [address]- 1703 Apr, [facility] [place] [facility] [address] [facility] [id number] [place] [address]- 9968 Apr, [facility] [place] [facility] [address] [id number] [place] [address]- 8761 Apr, [facility] [place] [facility] [address] [id number] [place] [address]- 3179 Apr, [facility] [place] [facility] [address] [facility] [id number] [place] [address]- 9671 Apr, [facility] [place] [facility] [address] [facility] [id number] [place] [address]- 4494 Apr, [facility] [place] [facility] [address] [facility] [id number] [place] [address]- 0094 Apr, [facility] [place] [facility] [address] [id number] [place] [address]- 1757 Apr, [facility] [place] [facility] [address] [id number] [place] [address]- 7382 Apr, [facility] [place] [facility] [address] [facility] [id number] [place] [address]- 4119 Apr, [facility] [place] [facility] [address] [facility] [id number] [place] [address]- 8525 Apr, [facility] [place] [facility] [address] [id number] [place] [address]- 3616 Apr, [facility] [place] [facility] [address] [id number] [place] [address]- 7415 Apr, 2013 [facility] [place] [facility] [address] [id number] [place] [address]- 7306 Apr, [facility] [place] [facility] [address] [id number] [place] [address]- 3814 Apr, [facility] [place] [facility] [address] [id number] [place] [address]- 9377 Apr, [facility] [place] [facility] [address] [id number] [place] [address]- 4951 Apr, [facility] [place] [facility] [address] [facility] [id number] [place] [address]- 8516 Jan, [facility] [place] [facility] [address] [id number] [place] [address]- 6433 Jan, [facility] [place] [facility] [address] [facility] [id number] [place] [address]- 5085 Jan, [facility] [place] [facility] [address] [facility] [id number] [place] [address]- 0778 Jan, [facility] [place] [facility] [address] [id number] [place] [address]- 2728 Jan, [facility] [place] [facility] [address] [id number] [place] [address]- 2237 Jan, [facility] [place] [facility] [address] [id number] [place] [address]- 8584 Jan, [facility] [place] [facility] [address] [facility] [id number] [place] [address]- 7184 Dec, [facility] [place] [facility] [address] [id number] [place] [address]- 7490 Dec, [facility] [place] [facility] [address] [id number] [place] [address]- 6580 Dec, [facility] [place] [facility] [address] [id number] [place] [address]- 1596 Nov, [facility] [place] [facility] [address] [id number] [place] [address]- 2586 Nov, [facility] [place] [facility] [address] [id number] [place] [address]- 9340 Nov, [facility] [place] [facility] [address] [id number] [place] [address]- 2436 Nov, [facility] [place] [facility] [address] [id number] [place] [address]- 2947 Oct, [facility] [place] [facility] [address] [id number] [place] [address]- 9852 Oct, [facility] [place] [facility] [address] [id number] [place] [address]- 3788 Oct, [facility] [place] [facility] [address] [id number] [place] [address]- 3853 Oct, [facility] [place] [facility] [address] [id number] [place] [address]- 9290 Oct, [facility] [place] [facility] [address] [id number] [place] [address]- 2256 Sep, [facility] [place] [facility] [address] [id number] [place] [address]- 7825 Sep, [facility] [place] [facility] [address] [id number] [place] [address]- 3633 Sep, [facility] [place] [facility] [address] [id number] [place] [address]- 0638 Sep, [facility] [place] [facility] [address] [id number] [place] [address]- 0431 Sep, [facility] [place] [facility] [address] [id number] [place] [address]- 2546 Sep, [facility] [address] [id number] [place] [address]- 0933 Sep, [facility] [address] [id number] [place] [address]- 9870 Aug, [facility] [address] [id number] [place] [address]- 8503 Aug, [facility] [place] [facility] [address] [id number] [place] [address]- 6922 July, [facility] [address] [id number] [place] [address]- 4034 Jun, [facility] [place] [facility] [address] [id number] [place] [address]- 5199 Jun, [facility] [address] [id number] [place] [address]- 1732 Jun, [facility] [place] [facility] [address] [id number] [place] [address]- 0341 Apr, [facility] [address] [id number] [place] [address]- 4678 Apr, [facility] [place] [facility] [address] [id number] [place] [address]- 7565 Apr, [facility] [address] [id number] [place] [address]- 7965 Mar, [facility] [place] [facility] [address] [id number] [place] [address]- 4889 Mar, [facility] [place] [facility] [address] [id number] [place] [address]- 3370 Mar, [facility] [place] [facility] [address] [id number] [place] [address]- 4197 Mar, [facility] [place] [facility] [address] [id number] [place] [address]- 8446 Mar, [facility] [place] [facility] [address] [id number] [place] [address]- 6751 14 Feb, 2012 [facility] [place] [facility] [address] [id number] [place] [address]- 4167 14 Feb, 2012 [facility] [place] [facility] [address] [id number] [place] [address]- 2706 13 Jan, 2012 [facility] [place] [facility] [address] [id number] [place] [address]- 0257 13 Jan, 2012 [facility] [place] [facility] [address] [id number] [place] [address]- 8347 13 Jan, 2012 [facility] [place] [facility] [address] [id number] [place] [address]- 3676 13 Jan, 2012 [facility] [place] [facility] [address] [id number] [place] [address]- 8170 07 Jan, 2012 [facility] [place] [facility] [address] [id number] [place] [address]- 4976 Jan, [facility] [place] [facility] [address] [id number] [place] [address]- 5267 06 Jan, 2012 [facility] [place] [facility] [address] [id number] [place] [address]- 3339 31 Dec, 2011 [facility] [place] [facility] [address] [facility] [id number] [place] [address]- 2352 31 Dec, 2011 [facility] [place] [facility] [address] [id number] [place] [address]- 5141 30 Dec, 2011 [facility] [place] [facility] [address] [id number] [place] [address]- 4519 30 Dec, 2011 [facility] [place] [facility] [address] [id number] [place] [address]- 3556 30 Dec, 2011 [facility] [place] [facility] [address] [facility] [id number] [place] [address]- 3326 30 Dec, 2011 [facility] [place] [facility] [address] [id number] [place] [address]- 4953 Dec, [facility] [place] [facility] [address] [id number] [place] [address]- 7061 Dec, [facility] [place] [facility] [address] [id number] [place] [address]- 8798 Dec, [facility] [place] [facility] [address] [id number] [place] [address]- 3585 Dec, [facility] [place] [facility] [address] [id number] [place] [address]- 4102 Oct, [facility] [place] [facility] [address] [id number] [place] [address]- 2077 Oct, [facility] [place] [facility] [address] [id number] [place] [address]- 2160 Aug, [facility] [place] [facility] [address] [id number] [place] [address]- 6637 Aug, [facility] [place] [facility] [address] [id number] [place] [address]- 6459 July, [facility] [place] [facility] [address] [id number] [place] [address]- 8867 Jun, [facility] [place] [facility] [address] [id number] [place] [address]- 7990 Jun, [facility] [place] [facility] [address] [id number] [place] [address]- 8018 May, [facility] [place] [facility] [address] [id number], [place] [address]- 8958 Apr, [facility] [place] [facility] [address] [id number] [place] [address]- 3011 Apr, [facility] [place] [facility] [address] [id number], [place] [address]- 6286 Mar, [facility] [place] [facility] [address] [id number] [place] [address]- 1916 Mar, [facility] [place] [facility] [address] [id number] [place] [address]- 3508 19 Feb, 2011 [facility] [address] [id number] [place] [address]- 6056 15 Feb, 2011 [facility] [place] [facility] [address] [id number] [place] [address] 2546 13 Feb, 2011 [facility] [address] [id number] [place] [address]- 0316 13 Feb, 2011 [facility] [place] [facility] [address] [id number] [place] [address] 2541 Jan, [facility] [address] [id number] [place] [address]- 1042 17 Dec, 2010 [facility] [address] [id number] [place] [address]- 1771 08 Feb, 2010 [facility] [address] [id number] [place] [address]- 0274 02 Feb, 2010 [facility] [address] [id number] [place] [address]- 9743 Feb, [facility] [place] [facility] [address] [id number] [place] [address]- 6560 Feb, [facility] [address] [facility] [id number] [place] [address]- 0964 15 Dec, 2009 [facility] [place] [facility] [address] [id number] [place] [address]- 6258 15 Dec, 2009 [facility] [place] [facility] [address] [id number] [place] [address]- 3637 Oct, [facility] [place] [facility] [address] [id number] [place] [address]- 4354 15 Jun, 2009 [facility] [place] [facility] [address] [id number] [place] [address] 2545 Feb, [facility] [place] [facility] [address] [id number] [place] [address]- 0489 Feb, [facility] [address] [facility] [id number] [place] [id number] [address] Feb, [facility] [address] [facility] [id number]66 Dec, IMMUNIZATIONS No Known Immunizations SOCIAL HISTORY Never Assessed REASON FOR VISIT Lab (walk-in) PLAN OF CARE VITAL SIGNS MEDICATIONS Unknown Medications RESULTS Name Result Date Reference Range INR (IN HOUSE) 2017-05-05 INR 3.3 1.10 - 3.30 PREVIOUS INR 1.7 CURRENT COUMADIN DOSE 5 mg MWFSS, 6 mg TTh NEW COUMADIN DOSE 5 mg qd except Tues- 6 mg Lot # [id number] Exp date 01/2018 PROCEDURES No Known procedures INSTRUCTIONS MEDICATIONS ADMINISTERED [...]
--- OUTSIDE RECORDS SUMMARY | 2018-08-02 09:11 | XMS REPORT ---
Author Author ASHLEY BRUNO [facility] eClinicalWorks Address Unknown Phone Unavailable Care Team Providers Care Sign Fabricator Name Role Phone ASHLEY BRUNO Unavailable Allergies [...] Coding System Code Date PROTHROMBIN TIME CPT-4 56460 Nov 16, 2014 Results No Known Results Summary Purpose eClinicalWorks Submission
--- OUTSIDE RECORDS SUMMARY | 2018-08-02 09:11 | XMS REPORT ---
Author Author KIANA ASHLEY [facility] Address [address] [place] [address] Care Team Providers Care Platen Press Feeder Name Role Phone GILSON BRUNOHANY Unavailable PROBLEMS Type Condition ICD9-CM Code HKE86-MM Code Onset Dates Condition Status SNOMED Code Assessment History of DVT (deep vein thrombosis) Z86.718 13 Nov, 2015 Active 758547726 Problem residential (current) use of anticoagulants Z79.01 Active 172967928 Problem Peripheral edema R60.9 Active 842622197 Assessment Tremulousness R25.1 Nov, Active 00954246 Problem History of DVT (deep vein thrombosis) Z86.718 Active 453339971 Problem Generalized anxiety disorder F41.1 Active 134184942 Problem 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 Active 887531262 Problem Presence of IVC filter Z95.828 Active 095972117 Problem Hypertriglyceridemia E78.1 Active 163100383 Problem Pelvic pain R10.2 Active 06406343 ALLERGIES Substance Reaction Event Type Date Status N.K.D.A. Unknown Non Drug Allergy Nov, Unknown SOCIAL HISTORY No smoking Hx information available PLAN OF CARE VITAL SIGNS Height 64 in 2015-12-11 Weight 192.4 lbs 2015-12-11 Heart Rate 80 bpm 2015-12-11 Respiratory Rate 18 2015-12-11 BMI 33.02 kg/m2 2015-12-11 Blood pressure systolic 124 mmHg 2015-12-11 Blood pressure diastolic 73 mmHg 2015-12-11 MEDICATIONS Medication Instructions Dosage Frequency Start Date End Date Duration Status Coumadin 1 MG Orally Once a day 1 tablet 24h Nov, 90 days Active Hydrochlorothiazide 50 mg Orally Once a day 1 tablet 24h 90 days Active Coumadin 5 mg Orally Once a day 1 tablet 24h 90 days Active Lexapro 10 MG Orally Once a day 1 tablet 24h 90 days Active Tylenol 325 MG Orally every 6 hrs 1 tablet as needed 6h Active RESULTS Name Result Date Reference Range TSH 2015-12-11 TSH 2.990 0.450-4.500 CBC 2015-12-11 WBC 4.3 3.4-10.8 RBC 4.00 3.77-5.28 Hemoglobin 11.3 11.1-15.9 Hematocrit 33.9 34.0-46.6 MCV 85 79-97 MCH 28.3 26.6-33.0 MCHC 33.3 31.5-35.7 RDW 14.3 12.3-15.4 Platelets 296 150-379 Neutrophils 44 Lymphs 37 Monocytes 14 Eos 4 Basos 1 Neutrophils (Absolute) 1.9 1.4-7.0 Lymphs (Absolute) 1.6 0.7-3.1 Monocytes(Absolute) 0.6 0.1-0.9 Eos (Absolute) 0.2 0.0-0.4 Baso (Absolute) 0.1 0.0-0.2 Immature Granulocytes 0 Immature Grans (Abs) 0.0 0.0-0.1 BMP 2015-12-11 Glucose, Serum 91 65-99 BUN 8 6-24 Creatinine, Serum 0.79 0.57-1.00 eGFR If NonAfricn Am 88 >59 eGFR If Africn Am 102 >59 BUN/Creatinine Ratio 10 9-23 Sodium, Serum 142 134-144 Potassium, Serum 3.7 3.5-5.2 Chloride, Serum 101 97-108 Carbon Dioxide, Total 26 18-29 Calcium, Serum 8.8 8.7-10.2 INR (IN HOUSE) 2015-12-11 INR 2.7 1.10 - 3.30 PREVIOUS INR 2.0 CURRENT COUMADIN DOSE 6 mg qd NEW COUMADIN DOSE Lot # [id number] Exp date Nov 2015 PROCEDURES Procedure Date Ordered Related Diagnosis Body Site [facility] Dec 11, 2015 PROTHROMBIN TIME Dec 11, 2015 VENIPUNCT, ROUTINE* Dec 11, 2015 Office Visit, Est Pt., Level 3 Dec 11, 2015 IMMUNIZATIONS No Known Immunizations
--- OUTSIDE RECORDS SUMMARY | 2018-08-02 09:11 | XMS REPORT ---
Author Author ASHLEY BRUNO [facility] Address [address] [place] [address] Care Team Providers Care Dye Penetrant Testing Technician Name Role Phone ASHLEY BRUNO Unavailable PROBLEMS Type Condition ICD9-CM Code [id number] Code Onset Dates Condition Status SNOMED Code Problem custodial (current) use of anticoagulants Z79.01 Active 214751365 Problem Peripheral edema R60.9 Active 245444756 Problem History of DVT (deep vein thrombosis) Z86.718 Active 265032304 Problem Generalized anxiety disorder F41.1 Active 452112953 Problem 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 Active 611902888 Problem Presence of IVC filter Z95.828 Active 377914399 Problem Hypertriglyceridemia E78.1 Active 325716269 Problem Pelvic pain R10.2 Active 39888776 ALLERGIES Unknown Allergies SOCIAL HISTORY No smoking Hx information available PLAN OF CARE VITAL SIGNS MEDICATIONS Unknown Medications RESULTS No Results PROCEDURES No Known procedures IMMUNIZATIONS No Known Immunizations
--- OUTSIDE RECORDS SUMMARY | 2018-08-02 09:11 | XMS REPORT ---
Author Author GAGANDEEP FLORES Organization [employer] Address Unknown Phone Unavailable Care Team Providers Care Motorboat Mechanic Inboard/Outboard Name Role Phone GAGANDEEP FLORES Unavailable Allergies, Adverse Reactions, Alerts Substance Reaction Event Type N.K.D.A. Info Not Available Non Drug Allergy Problems Problem Type Condition ICD-9 Code Onset Dates Condition Status Problem Irregular menstrual cycle 626.4 Active Problem Chronic pain syndrome 338.4 Active Problem Pure hyperglyceridemia 272.1 Active Assessment Dysuria 788.1 Active Problem Unspecified anemia 285.9 Active Problem Lumbago 724.2 Active Problem Personal history of venous thrombosis and embolism V12.51 Active Problem Generalized anxiety disorder 300.02 Active Problem Hypopotassemia 276.8 Active Problem Pain in joint, lower leg 719.46 Active Problem Abdominal pain, left lower quadrant 789.04 Active Medications Medication Code System Code Instructions Start Date End Date Status Dosage Bactrim DS [facility] [address]-33 800-160 MG Orally 2 times a day Nov 24, 2014 Nov 27, 2014 1 tablet Hydrochlorothiazide [facility] 73178060589 50 MG TAKE ONE TABLET BY MOUTH DAILY Coumadin [facility] 28400189103 5 MG TAKE ONE TABLET BY MOUTH DAILY ALONG WITH COUMADIN 1 MG Lexapro [facility] [address]-11 10 MG Orally Once a day August 04, 2014 1 tablet Procedures Procedure Coding System Code Date URINALYSIS, AUTO, W/O SCOPE CPT-4 25644 Nov 24, 2014 URINE CULTURE/COLONY COUNT CPT-4 90258 Nov 24, 2014 Office Visit, Est Pt., Level 3 CPT-4 25470 Nov 24, 2014 Vital Signs Date/Time: Nov 24, 2014 Temperature 98.8 F Weight 185 lbs Height 64 in BMI 31.75 Index Blood Pressure Diastolic 72 mmHg Blood Pressure Systolic 110 mmHg Cardiac Monitoring Heart Rate 76 bpm Results Name Result Date Reference Range Unit Abnormality Flag UA W/CULTURE IF INDICATED (IN HOUSE) Summary Purpose [employer] Submission
--- OUTSIDE RECORDS SUMMARY | 2018-08-02 09:11 | XMS REPORT ---
Author Author ASHLEY BRUNO [facility] Address [address] [place] [address] Care Team Providers Care [employer] Name Role Phone ASHLEY BRUNO Unavailable PROBLEMS Type Condition ICD9-CM Code [id number] Code Onset Dates Condition Status SNOMED Code Problem MCC (current) use of anticoagulants Z79.01 Active 360438459 Problem Peripheral edema R60.9 Active 869158064 Problem History of DVT (deep vein thrombosis) Z86.718 Active 101306716 Problem Generalized anxiety disorder F41.1 Active 575681857 Problem 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 Active 066925171 Problem Presence of IVC filter Z95.828 Active 674149832 Problem Hypertriglyceridemia E78.1 Active 607842439 Problem Pelvic pain R10.2 Active 04510384 ALLERGIES Unknown Allergies SOCIAL HISTORY No smoking Hx information available PLAN OF CARE VITAL SIGNS MEDICATIONS Medication Instructions Dosage Frequency Start Date End Date Duration Status Vistaril 50 mg Orally every 6 hrs 1 capsule as needed 6h 28 Nov, 2015 Active RESULTS No Results PROCEDURES No Known procedures IMMUNIZATIONS No Known Immunizations
--- OUTSIDE RECORDS SUMMARY | 2018-08-02 09:11 | XMS REPORT ---
Author Author ASHLEY BRUNO [facility] eClinicalWorks Address Unknown Phone Unavailable Care Team Providers Care [employer] House Keeper Name Role Phone ASHLEY BRUNO Unavailable Allergies [...] Coding System Code Date PROTHROMBIN TIME CPT-4 93113 Dec 08, 2014 Results No Known Results Summary Purpose eClinicalWorks Submission
--- OUTSIDE RECORDS SUMMARY | 2018-08-02 09:12 | XMS REPORT ---
Author Author KIANA ASHLEY [facility] Address [address] [place] [address] Care Team Providers Care Oral And Maxillofacial Surgeon Name Role Phone GILSON BRUNOHANY Unavailable PROBLEMS Type Condition ICD9-CM Code IAN88-OS Code Onset Dates Condition Status SNOMED Code Problem Generalized anxiety disorder F41.1 Active 690179389 Problem 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 Active 073044808 Problem History of DVT (deep vein thrombosis) Z86.718 Active 384125891 Problem Factor V Leiden D68.51 Active 764122020 Problem Hypertriglyceridemia E78.1 Active 801576156 Problem shelter (current) use of anticoagulants Z79.01 Active 706115868 Problem Thyroid nodule E04.1 Active 572310274 Problem Excessive daytime sleepiness G47.19 Active 745506166738 Problem Peripheral edema R60.9 Active 179507540 Problem Pelvic pain R10.2 Active 76556709 Problem Gastroesophageal reflux disease, esophagitis presence not specified K21.9 Active 409632610 Problem Presence of IVC filter Z95.828 Active 748552739 ALLERGIES No Information ENCOUNTERS Encounter Location Date Diagnosis [place] [address] [address] Aug, [facility] [id number] [place] [address] 35712- 7990 Aug, [facility] [address] [place] [address] 72468- 5564 Aug, Acute pain of left shoulder M25.512 and Thyroid nodule E04.1 [facility] [address] [place] [address] 06649- 3639 July, Superior glenoid labrum lesion of left shoulder, subsequent encounter S43.432D [place] [id number] [place] [address] 16499- 7528 Jun, History of DVT (deep vein thrombosis) Z86.718 [facility] [id number] [place] [address] 06892- 5322 Jun, History of DVT (deep vein thrombosis) Z86.718 [place] [id number] [place] [address] 69159- 7700 Jun, Impingement syndrome, shoulder, left M75.42 [place] [id number] [place] [address] 44290- 5546 May, Subacromial bursitis of left shoulder joint M75.52 [place] [id number] [place] [address] 10803- 4806 May, [place] [id number] [place] [address] 87433- 2915 May, Hypertriglyceridemia E78.1 ; shelter (current) use of anticoagulants Z79.01 and Excessive daytime sleepiness G47.19 [place] [id number] [place] [address] 26770- 0912 May, History of DVT (deep vein thrombosis) Z86.718 ; Generalized anxiety disorder F41.1 ; Hypertriglyceridemia E78.1 ; 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 ; Subacromial bursitis of left shoulder joint M75.52 and Excessive daytime sleepiness G47.19 [place] [address] [place] [address] 75990- 1164 May, [place] [id number] [place] [address] 18569- 8096 May, shelter (current) use of anticoagulants Z79.01 [place] [id number] [place] [address] 86898- 5371 Apr, shelter (current) use of anticoagulants Z79.01 [place] [id number] [place] [address] 09906- 2965 Apr, shelter (current) use of anticoagulants Z79.01 [facility] [address] [place] [address] 70807 2546 Apr, shelter (current) use of anticoagulants Z79.01 [facility] [id number] [place] [address] 73758 2546 Apr, [facility] [address] [address] 2546 Apr, shelter (current) use of anticoagulants Z79.01 [facility] [id number] [place] [address] 04540 2546 13 Apr, 2017 shelter (current) use of anticoagulants Z79.01 [facility] [id number] [place] [address] 32099 2546 Apr, shelter (current) use of anticoagulants Z79.01 [facility] [id number] [place] [address] 17085 2546 Apr, shelter (current) use of anticoagulants Z79.01 [facility] [id number] [place] [address] 34409 2546 Apr, 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 [facility] [id number] [place] [address] 52126 2546 Apr, shelter (current) use of anticoagulants Z79.01 [facility] [id number] [place] [address] 57010 2546 Mar, shelter (current) use of anticoagulants Z79.01 [facility] [id number] [place] [address] 17311 2546 Mar, [facility] [id number] [place] [address] 87281 2546 Mar, 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 [facility] [id number] [place] [address] [phone] Jan, Dental examination Z01.20 [facility] [address] [place] [address] [phone] Jan, [facility] [id number] [place] [address] 64787- 0637 Jan, shelter (current) use of anticoagulants Z79.01 [facility] [id number] [place] [address] 06669- 3195 Jan, History of DVT (deep vein thrombosis) Z86.718 [facility] [id number] [place] [address] 12633- 3952 Jan, Generalized anxiety disorder F41.1 and Peripheral edema R60.9 [facility] [id number] [place] [address] 39720- 2808 Nov, History of DVT (deep vein thrombosis) Z86.718 [facility] [id number] [place] [address] 62886- 2214 Nov, 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 [facility] [address] [place] [address] 88609 -9949 Nov, Acute non-recurrent maxillary sinusitis J01.00 [facility] [address] [place] [address] 36831- 9257 Oct, 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 [facility] [address] [place] [address] 41948- 7410 Oct, Personal history of venous thrombosis and embolism Z86.718 [facility] [id number] [place] [address] 71183- 2736 Sep, [facility] [id number] [place] [address] 67419- 3193 Sep, Personal history of venous thrombosis and embolism Z86.718 [facility] [id number] [place] [address] 67580- 3385 Sep, shelter (current) use of anticoagulants Z79.01 [place] [id number] [place] [address] 06412- 6239 Sep, shelter (current) use of anticoagulants Z79.01 [place] [id number] [place] [address] 56209- 0498 Sep, Generalized anxiety disorder F41.1 and History of DVT (deep vein thrombosis) Z86.718 [place] [id number] [place] [address] 82171- 3443 Aug, History of DVT (deep vein thrombosis) Z86.718 ; Generalized anxiety disorder F41.1 ; 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 ; Pelvic pain R10.2 ; Hypertriglyceridemia E78.1 ; Excessive daytime sleepiness G47.19 ; Colon cancer screening Z12.11 ; Screening for breast cancer Z12.39 ; Peripheral edema R60.9 and Gastroesophageal reflux disease, esophagitis presence not specified K21.9 [place] [id number] [place] [address] 54297- 9280 Aug, [place] [id number] [place] [address] 92594- 6545 July, [place] [id number] [place] [address] 84698- 1407 July, History of DVT (deep vein thrombosis) Z86.718 [place] [id number] [place] [address] 63787- 9974 Jun, Generalized anxiety disorder F41.1 [place] [id number] [place] [address] 76106- 9399 Jun, History of DVT (deep vein thrombosis) Z86.718 [place] [id number] [place] [address] 29869- 0672 Jun, History of DVT (deep vein thrombosis) Z86.718 [place] [address] [place] [address]- 8596 Jun, History of DVT (deep vein thrombosis) Z86.718 [facility] [id number] [place] [address] 19593- 8748 Jun, History of DVT (deep vein thrombosis) Z86.718 [facility] [id number] [place] [address] 84970- 2121 May, History of DVT (deep vein thrombosis) Z86.718 [facility] [id number] [place] [address] 48208- 7713 May, 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 [place] [address] 66269- 4494 May, 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 [place] [id number] [place] [address] 94088- 7437 May, History of DVT (deep vein thrombosis) Z86.718 [facility] [id number] [place] [address] 85571 -1646 Apr, Bacterial conjunctivitis of left eye H10.9 and H/O motion sickness Z87.898 [facility] [address] [place] [address] 54033- 5917 Apr, History of DVT (deep vein thrombosis) Z86.718 [facility] [id number] [place] [address] 85701- 6623 Apr, History of DVT (deep vein thrombosis) Z86.718 [place] [id number] [place] [address] 62694- 9826 Apr, History of DVT (deep vein thrombosis) Z86.718 [facility] [id number] [place] [address] 18804- 7066 14 Apr, 2016 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 [facility] [address] [address]- 3312 Mar, [facility] [id number] [place] [address] 90164- 2146 Mar, shelter (current) use of anticoagulants Z79.01 [facility] [address] [place] [address] 35818 2546 Mar, Hypertriglyceridemia E78.1 and 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 [place] [id number] [place] [address] 18802 2546 Feb, shelter (current) use of anticoagulants Z79.01 [place] [id number] [place] [address] 82882 2546 Feb, shelter (current) use of anticoagulants Z79.01 [place] [id number] [place] [address] 50266- 0156 Feb, 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 [place] [address] [place] [address] 27108 2546 Dec, [place] [id number] [place] [address] 85463- 3766 Nov, [place] [address] [place] [address] 33328- 5116 Nov, History of DVT (deep vein thrombosis) Z86.718 ; Tremulousness R25.1 ; Generalized anxiety disorder F41.1 ; Peripheral edema R60.9 and Hypertriglyceridemia E78.1 [place] [address] [address] 2546 Oct, History of DVT (deep vein thrombosis) Z86.718 [place] [address] [place] [address] 57106 2546 Oct, [place] [address] [place] [address] 87586- 2546 Sep, History of DVT (deep vein thrombosis) Z86.718 [facility] [address] [place] [address] 22702- 4010 Sep, 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 [facility] [id number] [place] [address] 16406- 1645 July, [facility] [id number] [place] [address] 69190- 0860 July, 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 [facility] [id number] [place] [address] 03530- 8267 July, 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 [place] [id number] [place] [address] 69289- 3635 Jun, shelter (current) use of anticoagulants Z79.01 [facility] [id number] [place] [address] 44055 -4972 Jun, Coccyx pain M53.3 ; Encounter for therapeutic drug level monitoring Z51.81 and computer terminal operator current use 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.01 [facility] [id number] [place] [address] 54621- 7956 May, Abnormal mammogram R92.8 [facility] [id number] [place] [address] 55417 -9979 May, [facility] [id number] [place] [address] 10581 -3830 May, Acute vaginitis N76.0 and Encounter for other screening for malignant neoplasm of breast Z12.39 [place] [id number] [place] [address] 53522- 0140 Apr, [facility] [id number] [place] [address] 41991- 3010 Apr, [facility] [id number] [place] [address] 06152- 1660 Apr, Peripheral edema R60.9 [facility] [id number] [place] [address] 40843 2546 Apr, shelter (current) use of anticoagulants Z79.01 [facility] [id number] [place] [address] 68343 2546 Apr, Peripheral edema R60.9 and 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 [place] [id number] [place] [address] 22378 2546 Apr, shelter (current) use of anticoagulants Z79.01 [place] [id number] [place] [address] 37259 2546 Apr, [place] [id number] [place] [address] 37384 2546 Apr, shelter (current) use of anticoagulants Z79.01 [place] [id number] [place] [address] 46189 2546 Apr, Peripheral edema R60.9 [place] [id number] [place] [address] 02168 2546 Mar, 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 [place] [id number] [place] [address] 29629 2546 Mar, 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 and Hypertriglyceridemia E78.1 [place] [address] [place] [address] 34561 2546 Mar, shelter (current) use of anticoagulants Z79.01 [place] [id number] [place] [address] 41149 2546 Mar, 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 [place] [id number] [place] [address] 49147 2546 Mar, [place] [address] [place] [address]- 8550 Mar, 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 ; Hypertriglyceridemia E78.1 ; Personal history of venous thrombosis and embolism Z86.718 and Lump R22.9 [place] [address] [place] [address] 96284- 6597 Mar, Personal history of venous thrombosis and embolism Z86.718 [place] [id number] [place] [address] 29411- 3874 Mar, Personal history of venous thrombosis and embolism Z86.718 [place] [id number] [place] [address] 20677- 9070 Mar, [place] [id number] [place] [address] 29685- 1833 Dec, Personal history of venous thrombosis and embolism Z86.718 [place] [id number] [place] [address] 74280- 4159 Dec, Personal history of venous thrombosis and embolism V12.51 [place] [id number] [place] [address] 89936- 5558 Nov, Personal history of venous thrombosis and embolism V12.51 [place] [address] [place] [address] 53018- 8806 Nov, Personal history of venous thrombosis and embolism V12.51 [place] [address] [place] [address] 82434- 4285 Nov, Personal history of venous thrombosis and embolism V12.51 [place] [address] [place] [address] 18642- 5160 Nov, Personal history of venous thrombosis and embolism V12.51 [place] [address] [place] [address] 61054- 8732 Nov, [place] [id number] [place] [address] 49726- 8154 Oct, Dysuria 788.1 [facility] [address] [address]- 9874 Oct, Personal history of venous thrombosis and embolism V12.51 [facility] [address] [address]- 7552 Oct, [facility] [address] [address]- 6937 Oct, Personal history of venous thrombosis and embolism V12.51 [facility] [address] [place] [address] 07099- 4671 Sep, Personal history of venous thrombosis and embolism V12.51 [facility] [address] [place] [address] 57801- 0101 Sep, Personal history of venous thrombosis and embolism V12.51 [facility] [address] [place] [address] 49157- 1277 Aug, Personal history of venous thrombosis and embolism V12.51 [facility] [address] [address]- 3781 Aug, Personal history of venous thrombosis and embolism V12.51 [facility] [address] [address]- 9212 Aug, Personal history of venous thrombosis and embolism V12.51 [facility] [address] [address]- 4742 July, Generalized anxiety disorder 300.02 ; Abdominal pain, left lower quadrant 789.04 and Personal history of venous thrombosis and embolism V12.51 [facility] [address] [address]- 9161 Jun, [facility] [address] [address]- 8025 Jun, [facility] [address] [address]- 5451 May, [facility] [place] [facility] [address] [id number] [place] [address]- 3815 May, [facility] [place] [facility] [address] [id number] [place] [address]- 4684 May, [facility] [place] [facility] [address] [id number] [place] [address]- 5466 May, [facility] [place] [facility] [address] [id number] [place] [address]- 6301 May, [facility] [place] [facility] [address] [id number] [place] [address]- 6924 May, [facility] [place] [facility] [address] [id number] [place] [address]- 7493 May, [facility] [place] [facility] [address] [facility] [id number] [place] [address]- 5669 May, [facility] [place] [facility] [address] [id number] [place] [address]- 8668 Apr, [facility] [place] [facility] [address] [id number] [place] [address]- 0190 Apr, [facility] [place] [facility] [address] [facility] [id number] [place] [address]- 7252 Apr, [facility] [place] [facility] [address] [facility] [id number] [place] [address]- 4055 Apr, [facility] [place] [facility] [address] [id number] [address]- 2258 Apr, [facility] [place] [facility] [address] [id number] [place] [address]- 3672 Mar, [facility] [place] [facility] [address] [id number] [place] [address]- 0487 Mar, [facility] [place] [facility] [address] [facility] [id number] [address]- 3173 Mar, [facility] [place] [facility] [address] [id number] [place] [address]- 2977 Mar, [facility] [place] [facility] [address] [id number] [place] [address]- 4560 Mar, [facility] [place] [facility] [address] [id number] [place] [address]- 5283 Mar, [facility] [place] [facility] [address] [id number] [place] [address]- 1231 Feb, [facility] [place] [facility] [address] [id number] [place] [address]- 8729 Feb, [facility] [place] [facility] [address] [id number] [place] [address]- 6241 Feb, [facility] [place] [facility] [address] [id number] [place] [address]- 1411 Feb, [facility] [place] [facility] [address] [facility] [id number] [place] [address]- 1466 Feb, [facility] [place] [facility] [address] [id number] [place] [address]- 4521 Feb, [facility] [place] [facility] [address] [id number] [place] [address]- 9782 Feb, [facility] [place] [facility] [address] [id number] [place] [address]- 7899 Feb, [facility] [place] [facility] [address] [id number] [place] [address]- 7311 Feb, [facility] [place] [facility] [address] [id number] [place] [address]- 2886 Feb, [facility] [place] [facility] [address] [id number] [place] [address] Jan, [facility] [place] [facility] [address] [id number] [place] [address] Jan, [facility] [place] [facility] [address] [facility] [id number] [place] [address] Jan, [facility] [place] [facility] [address] [id number] [place] [address] Jan, [facility] [place] [facility] [address] [id number] [place] [address] Jan, [facility] [place] [facility] [address] [id number] [place] [address] Jan, [facility] [place] [facility] [address] [id number] [place] [address] Jan, [facility] [place] [facility] [address] [id number] [place] [address] Jan, [facility] [place] [facility] [address] [id number] [place] [address] Jan, [facility] [place] [facility] [address] [id number] [place] [address] Jan, [facility] [place] [facility] [address] [id number] [place] [address] Dec, [facility] [place] [facility] [address] [id number] [place] [address] Dec, [facility] [place] [facility] [address] [id number] [place] [address] Dec, [facility] [place] [facility] [address] [id number] [place] [address] Dec, [facility] [place] [facility] [address] [id number] [place] [address] Dec, [facility] [place] [facility] [address] [id number] [place] [address] Dec, [facility] [place] [facility] [address] [id number] [place] [address] Dec, [facility] [place] [facility] [address] [id number] [place] [address] Dec, [facility] [place] [facility] [address] [id number] [place] [address] Dec, [facility] [place] [facility] [address] [id number] [place] [address] Dec, [facility] [place] [facility] [address] [id number] [place] [address] Dec, [facility] [place] [facility] [address] [id number] [place] [address] Dec, [facility] [place] [facility] [address] [id number] [place] [address] Dec, [facility] [place] [facility] [address] [id number] [place] [address] Dec, [facility] [place] [facility] [address] [id number] [place] [address] Dec, [facility] [place] [facility] [address] [address] [id number] [place] [address] 30 Nov, 2013 [facility] [place] [facility] [address] [id number] [place] [address] 30 Nov, 2013 [facility] [place] [facility] [address] [id number] [place] [address] 5149 26 Nov, 2013 [facility] [place] [facility] [address] [id number] [place] [address] 3054 26 Nov, 2013 [facility] [place] [facility] [address] [id number] [address] 24 Sep, 2013 [facility] [place] [facility] [address] [id number] [address] 7844 24 Sep, 2013 [facility] [place] [facility] [address] [id number] [place] [address] 7961 23 Sep, 2013 [facility] [place] [facility] [address] [id number] [place] [address] 7887 23 Nov, 2013 [facility] [place] [facility] [address] [id number] [place] [address]- 1302 18 Nov, 2013 [facility] [place] [facility] [address] [id number] [place] [address]- 1399 18 Nov, 2013 [facility] [place] [facility] [address] [id number] [place] [address]- 1486 17 Nov, 2013 [facility] [place] [facility] [address] [id number] [place] [address]- 8036 17 Nov, 2013 [facility] [place] [facility] [address] [id number] [place] [address]- 1366 11 Nov, 2013 [facility] [place] [facility] [address] [id number] [place] [address] 2546 11 Nov, 2013 [facility] [place] [facility] [address] [id number] [place] [address]- 5237 10 Nov, 2013 [facility] [place] [facility] [address] [id number] [place] [address]- 4795 10 Nov, 2013 [facility] [place] [facility] [address] [id number] [place] [address]- 7406 08 Nov, 2013 [facility] [place] [facility] [address] [id number] [place] [address]- 3563 08 Nov, 2013 [facility] [place] [facility] [address] [id number] [place] [address]- 3571 Sep, 2013 [facility] [place] [facility] [address] [id number] [place] [address]- 3798 Sep, [facility] [place] [facility] [address] [id number] [place] [address]- 7979 Sep, 2013 [facility] [place] [facility] [address] [id number] [place] [address]- 2725 Sep, 2013 [facility] [place] [facility] [address] [id number] [place] [address]- 3931 Sep, [facility] [place] [facility] [address] [id number] [place] [address]- 4716 Sep, 2013 [facility] [place] [facility] [address] [id number] [place] [address]- 3073 Aug, [facility] [place] [facility] [address] [id number] [place] [address]- 5697 Aug, [facility] [place] [facility] [address] [id number] [place] [address]- 0655 Aug, [facility] [place] [facility] [address] [id number] [place] [address]- 9226 Aug, [facility] [place] [facility] [address] [id number] [place] [address]- 2388 Aug, [facility] [place] [facility] [address] [id number] [place] [address]- 6068 Aug, [facility] [place] [facility] [address] [id number] [place] [address]- 4280 Aug, [facility] [place] [facility] [address] [id number] [place] [address]- 0763 Aug, [facility] [place] [facility] [address] [id number] [place] [address]- 2833 Aug, [facility] [place] [facility] [address] [id number] [place] [address]- 3868 Aug, [facility] [place] [facility] [address] [id number] [place] [address]- 8086 Aug, [facility] [place] [facility] [address] [id number] [place] [address]- 2957 July, [facility] [place] [facility] [address] [id number] [place] [address]- 1603 July, [facility] [place] [facility] [address] [id number] [place] [address]- 6680 Jun, [facility] [place] [facility] [address] [id number] [place] [address]- 0323 Jun, [facility] [place] [facility] [address] [id number] [place] [address]- 8999 Jun, [facility] [place] [facility] [address] [id number] [place] [address]- 4703 18 Jun, 2013 [facility] [place] [facility] [address] [id number] [place] [address]- 5338 18 Jun, 2013 [facility] [place] [facility] [address] [id number] [place] [address]- 2926 18 Jun, 2013 [facility] [place] [facility] [address] [id number] [place] [address]- 4361 15 Jun, 2013 [facility] [place] [facility] [address] [id number] [place] [address]- 0198 15 Jun, 2013 [facility] [place] [facility] [address] [id number] [place] [address]- 7315 Jun, [facility] [place] [facility] [address] [id number] [place] [address]- 8656 Jun, [facility] [place] [facility] [address] [id number] [place] [address]- 1065 Jun, [facility] [place] [facility] [address] [id number] [place] [address]- 7775 Jun, [facility] [place] [facility] [address] [id number] [place] [address]- 5897 May, [facility] [place] [facility] [address] [id number] [place] [address]- 9055 May, [facility] [place] [facility] [address] [id number] [place] [address]- 7997 May, [facility] [place] [facility] [address] [id number] [place] [address]- 8156 May, [facility] [place] [facility] [address] [id number] [place] [address]- 8185 May, [facility] [place] [facility] [address] [id number] [place] [address]- 0023 19 May, 2013 [facility] [place] [facility] [address] [id number] [place] [address]- 5636 May, [facility] [place] [facility] [address] [id number] [place] [address]- 6744 May, [facility] [place] [facility] [address] [id number] [place] [address]- 5534 May, [facility] [place] [facility] [address] [id number] [place] [address]- 2929 May, [facility] [place] [facility] [address] [id number] [place] [address]- 4429 May, [facility] [place] [facility] [address] [id number] [place] [address]- 5408 May, [facility] [place] [facility] [address] [id number] [place] [address]- 3319 Apr, [facility] [place] [facility] [address] [facility] [id number] [place] [address]- 9746 Apr, [facility] [place] [facility] [address] [id number] [place] [address]- 4219 Apr, [facility] [place] [facility] [address] [id number] [place] [address]- 3835 Apr, [facility] [place] [facility] [address] [facility] [id number] [place] [address]- 9602 Apr, [facility] [place] [facility] [address] [facility] [id number] [place] [address]- 0238 Apr, [facility] [place] [facility] [address] [facility] [id number] [place] [address]- 4976 Apr, [facility] [place] [facility] [address] [id number] [place] [address]- 9324 Apr, [facility] [place] [facility] [address] [id number] [place] [address]- 8300 Apr, [facility] [place] [facility] [address] [facility] [id number] [place] [address]- 3867 Apr, [facility] [place] [facility] [address] [facility] [id number] [place] [address]- 8686 Apr, [facility] [place] [facility] [address] [id number] [place] [address]- 8956 Apr, [facility] [place] [facility] [address] [id number] [place] [address]- 1315 Apr, 2013 [facility] [place] [facility] [address] [id number] [place] [address]- 6626 Apr, [facility] [place] [facility] [address] [id number] [place] [address]- 9624 Apr, [facility] [place] [facility] [address] [id number] [place] [address]- 0045 Apr, [facility] [place] [facility] [address] [id number] [place] [address]- 9860 Apr, [facility] [place] [facility] [address] [facility] [id number] [place] [address]- 5013 Jan, [facility] [place] [facility] [address] [id number] [place] [address]- 9270 Jan, [facility] [place] [facility] [address] [facility] [id number] [place] [address]- 9628 Jan, [facility] [place] [facility] [address] [facility] [id number] [place] [address]- 3675 Jan, [facility] [place] [facility] [address] [id number] [place] [address]- 3808 Jan, [facility] [place] [facility] [address] [id number] [place] [address]- 4322 Jan, [facility] [place] [facility] [address] [id number] [place] [address]- 4056 Jan, [facility] [place] [facility] [address] [facility] [id number] [place] [address]- 5942 Dec, [facility] [place] [facility] [address] [id number] [place] [address]- 3626 Dec, [facility] [place] [facility] [address] [id number] [place] [address]- 6260 Dec, [facility] [place] [facility] [address] [id number] [place] [address]- 6872 Nov, [facility] [place] [facility] [address] [id number] [place] [address]- 2277 Nov, [facility] [place] [facility] [address] [id number] [place] [address]- 4397 Nov, [facility] [place] [facility] [address] [id number] [place] [address]- 2522 Nov, [facility] [place] [facility] [address] [id number] [place] [address]- 7091 Oct, [facility] [place] [facility] [address] [id number] [place] [address]- 8106 Oct, [facility] [place] [facility] [address] [id number] [place] [address]- 3884 Oct, [facility] [place] [facility] [address] [id number] [place] [address]- 2805 Oct, [facility] [place] [facility] [address] [id number] [place] [address]- 3832 Oct, [facility] [place] [facility] [address] [id number] [place] [address]- 8543 Sep, [facility] [place] [facility] [address] [id number] [place] [address]- 7949 Sep, [facility] [place] [facility] [address] [id number] [place] [address]- 2890 Sep, [facility] [place] [facility] [address] [id number] [place] [address]- 1322 Sep, [facility] [place] [facility] [address] [id number] [place] [address]- 4487 Sep, [facility] [place] [facility] [address] [id number] [place] [address]- 2546 Sep, [facility] [address] [id number] [place] [address]- 1345 Sep, [facility] [address] [id number] [place] [address]- 6411 Aug, [facility] [address] [id number] [place] [address]- 4256 Aug, [facility] [place] [facility] [address] [id number] [place] [address]- 4745 July, [facility] [address] [id number] [place] [address]- 4746 Jun, [facility] [place] [facility] [address] [id number] [place] [address]- 2568 Jun, [facility] [address] [id number] [place] [address]- 2205 Jun, [facility] [place] [facility] [address] [id number] [place] [address]- 5072 Apr, [facility] [address] [id number] [place] [address]- 7220 Apr, [facility] [place] [facility] [address] [id number] [place] [address]- 3512 Apr, [facility] [address] [id number] [place] [address]- 5472 Mar, [facility] [place] [facility] [address] [id number] [place] [address]- 8982 Mar, [facility] [place] [facility] [address] [id number] [place] [address]- 9591 Mar, [facility] [place] [facility] [address] [id number] [place] [address]- 1304 Mar, [facility] [place] [facility] [address] [id number] [place] [address]- 7486 Mar, [facility] [place] [facility] [address] [id number] [place] [address]- 7340 14 Feb, 2012 [facility] [place] [facility] [address] [id number] [place] [address]- 8819 14 Feb, 2012 [facility] [place] [facility] [address] [id number] [place] [address]- 9276 13 Jan, 2012 [facility] [place] [facility] [address] [id number] [place] [address]- 8518 13 Jan, 2012 [facility] [place] [facility] [address] [id number] [place] [address]- 5189 13 Jan, 2012 [facility] [place] [facility] [address] [id number] [place] [address]- 9508 13 Jan, 2012 [facility] [place] [facility] [address] [id number] [place] [address]- 7540 07 Jan, 2012 [facility] [place] [facility] [address] [id number] [place] [address]- 2907 Jan, [facility] [place] [facility] [address] [id number] [place] [address]- 4085 06 Jan, 2012 [facility] [place] [facility] [address] [id number] [place] [address]- 5886 31 Dec, 2011 [facility] [place] [facility] [address] [facility] [id number] [place] [address]- 4496 31 Dec, 2011 [facility] [place] [facility] [address] [id number] [place] [address]- 0153 30 Dec, 2011 [facility] [place] [facility] [address] [id number] [place] [address]- 9162 30 Dec, 2011 [facility] [place] [facility] [address] [id number] [place] [address]- 5486 30 Dec, 2011 [facility] [place] [facility] [address] [facility] [id number] [place] [address]- 2236 30 Dec, 2011 [facility] [place] [facility] [address] [id number] [place] [address]- 0841 Dec, [facility] [place] [facility] [address] [id number] [place] [address]- 4022 Dec, [facility] [place] [facility] [address] [id number] [place] [address]- 9165 Dec, [facility] [place] [facility] [address] [id number] [place] [address]- 2385 Dec, [facility] [place] [facility] [address] [id number] [place] [address]- 6942 Oct, [facility] [place] [facility] [address] [id number] [place] [address]- 7787 Oct, [facility] [place] [facility] [address] [id number] [place] [address]- 5051 Aug, [facility] [place] [facility] [address] [id number] [place] [address]- 0463 Aug, [facility] [place] [facility] [address] [id number] [place] [address]- 3504 July, [facility] [place] [facility] [address] [id number] [place] [address]- 2926 Jun, [facility] [place] [facility] [address] [id number] [place] [address]- 3563 Jun, [facility] [place] [facility] [address] [id number] [place] [address]- 0793 May, [facility] [place] [facility] [address] [id number] [address]- 5549 Apr, [facility] [place] [facility] [address] [id number] [place] [address]- 5455 Apr, [facility] [place] [facility] [address] [id number] [address]- 9836 Mar, [facility] [place] [facility] [address] [id number] [place] [address]- 9546 Mar, [facility] [place] [facility] [address] [id number] [place] [address]- 1246 19 Feb, 2011 [facility] [address] [id number] [place] [address]- 6586 15 Feb, 2011 [facility] [place] [facility] [address] [id number] [place] [address] 2546 13 Feb, 2011 [facility] [address] [id number] [place] [address]- 5336 13 Feb, 2011 [facility] [place] [facility] [address] [id number] [place] [address] 2549 Jan, [facility] [address] [id number] [place] [address]- 5875 17 Dec, 2010 [facility] [address] [id number] [place] [address]- 8172 08 Feb, 2010 [facility] [address] [id number] [place] [address]- 3420 02 Feb, 2010 [facility] [address] [id number] [place] [address]- 9129 Feb, [facility] [place] [facility] [address] [id number] [place] [address]- 9593 Feb, [facility] [address] [facility] [id number] [place] [address]- 9316 15 Dec, 2009 [facility] [place] [facility] [address] [id number] [place] [address]- 3959 15 Dec, 2009 [facility] [place] [facility] [address] [id number] [place] [address]- 9681 Oct, [facility] [place] [facility] [address] [id number] [place] [address]- 4468 15 Jun, 2009 [facility] [place] [facility] [address] [id number] [place] [address] 2542 Feb, [facility] [place] [facility] [address] [id number] [place] [address]- 9510 Feb, [facility] [address] [facility] [id number] [place] [address]- 1026 Feb, [facility] [address] [facility] [id number] [address]- 6780 Dec, IMMUNIZATIONS No Known Immunizations SOCIAL HISTORY Never Assessed REASON FOR VISIT Future lab order PLAN OF CARE VITAL SIGNS MEDICATIONS Medication Instructions Dosage Frequency Start Date End Date Duration Status Hydrochlorothiazide 50 MG TAKE ONE TABLET BY MOUTH ONCE DAILY 90 Unknown Tylenol 325 MG Orally every 6 hrs 1 tablet as needed 6h Unknown Lexapro 10 mg Orally Once a day 1 tablet 24h 90 days Unknown Ondansetron 4 MG Orally every 8 hrs PRN 1 tablet on the tongue and allow to dissolve Apr, 05 days Unknown Omeprazole 10 MG Orally Once a day 1 capsule 24h Unknown Coumadin 5 mg take 6mg on T & Th and 5 mg on all other days Unknown Vistaril 50 mg Orally every 6 hrs 1 capsule as needed 6h 90 days Unknown RESULTS No Results PROCEDURES No Known procedures INSTRUCTIONS MEDICATIONS ADMINISTERED No Known Medications MEDICAL (GENERAL) HISTORY Type Description Date Medical History obesity Medical History Hematologic disorder factor clotting problem Medical History DVT's Surgical History Lap Band 10/2012 Surgical History section 1985, 1987 Surgical History cholecystectomy Surgical History Pierce Filter 06/2009 Surgical History Left leg exploratory surgery r/t clot 1987 Surgical History left shoulder surgery 09/14/17 Hospitalization History Ruptured Ovarian Cyst with abd bleeding 11/2009
--- OUTSIDE RECORDS SUMMARY | 2018-08-02 09:12 | XMS REPORT ---
Author Author ASHLEY BRUNO [employer] Address Unknown Phone Unavailable Care Team Providers Care Monotypist Name Role Phone ASHLEY BRUNO CP Unavailable Allergies No Known Allergies Problems Problem Type Condition Code Onset Dates Condition Status Problem Peripheral edema R60.9 Active Assessment [employer] (current) use of anticoagulants Z79.01 Active Problem Generalized anxiety disorder F41.1 Active Problem Hypertriglyceridemia E78.1 Active Problem History of DVT (deep vein thrombosis) Z86.718 Active Problem Presence of IVC filter Z95.828 Active Problem [employer] (current) use of anticoagulants Z79.01 Active Problem Pelvic pain R10.2 Active Problem 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 Active Medications No Known Medications Procedures Procedure Coding System Code Date PROTHROMBIN TIME CPT-4 37638 October 17, 2015 Results No Known Results Summary Purpose eClinicalWorks Submission
--- OUTSIDE RECORDS SUMMARY | 2018-08-02 09:12 | XMS REPORT ---
Author Author KIANA ASHLEY [facility] Address [address] [place] [address] Care Team Providers Care Occupational Health Physiotherapist Name Role Phone GILSON BRUNOHANY Unavailable PROBLEMS Type Condition ICD9-CM Code GSU79-PF Code Onset Dates Condition Status SNOMED Code Problem Generalized anxiety disorder F41.1 Active 113742566 Problem 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 Active 179017174 Problem History of DVT (deep vein thrombosis) Z86.718 Active 754698349 Problem Factor V Leiden D68.51 Active 723384223 Problem Hypertriglyceridemia E78.1 Active 863333562 Problem assisted (current) use of anticoagulants Z79.01 Active 381441551 Problem Thyroid nodule E04.1 Active 226353377 Problem Excessive daytime sleepiness G47.19 Active 820243449922 Problem Peripheral edema R60.9 Active 548725920 Problem Pelvic pain R10.2 Active 85045368 Problem Gastroesophageal reflux disease, esophagitis presence not specified K21.9 Active 857860977 Problem Presence of IVC filter Z95.828 Active 013268244 ALLERGIES No Information ENCOUNTERS Encounter Location Date Diagnosis [place] [address] [address] Aug, [facility] [id number] [place] [address] 12279- 7876 Aug, [facility] [id number] [place] [address] 65668- 1489 Aug, Acute pain of left shoulder M25.512 and Thyroid nodule E04.1 [facility] [id number] [place] [address] 73216- 8301 July, Superior glenoid labrum lesion of left shoulder, subsequent encounter S43.432D [place] [id number] [place] [address] 02993- 3794 Jun, History of DVT (deep vein thrombosis) Z86.718 [facility] [id number] [place] [address] 62533- 7050 Jun, History of DVT (deep vein thrombosis) Z86.718 [place] [id number] [place] [address] 27541- 9539 Jun, Impingement syndrome, shoulder, left M75.42 [place] [id number] [place] [address] 95234- 6238 May, Subacromial bursitis of left shoulder joint M75.52 [place] [id number] [place] [address] 80094- 7477 May, [place] [id number] [place] [address] 96494- 1071 May, Hypertriglyceridemia E78.1 ; assisted (current) use of anticoagulants Z79.01 and Excessive daytime sleepiness G47.19 [place] [id number] [place] [address] 91432- 9614 May, History of DVT (deep vein thrombosis) Z86.718 ; Generalized anxiety disorder F41.1 ; Hypertriglyceridemia E78.1 ; 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 ; Subacromial bursitis of left shoulder joint M75.52 and Excessive daytime sleepiness G47.19 [place] [id number] [place] [address] 56368- 7541 May, [place] [id number] [place] [address] 52207- 9571 May, assisted (current) use of anticoagulants Z79.01 [place] [id number] [place] [address] 13766- 9541 Apr, assisted (current) use of anticoagulants Z79.01 [place] [id number] [place] [address] 50160- 1534 Apr, assisted (current) use of anticoagulants Z79.01 [facility] [id number] [place] [address] 45789 2546 Apr, assisted (current) use of anticoagulants Z79.01 [facility] [id number] [place] [address] 20932 2546 Apr, [facility] [address] 70007 2546 Apr, assisted (current) use of anticoagulants Z79.01 [facility] [id number] [place] [address] 15019 2546 13 Apr, 2017 assisted (current) use of anticoagulants Z79.01 [facility] [id number] [place] [address] 20000 2546 Apr, assisted (current) use of anticoagulants Z79.01 [facility] [id number] [place] [address] 60880 2546 Apr, assisted (current) use of anticoagulants Z79.01 [facility] [id number] [place] [address] 98514 2546 Apr, 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 [facility] [id number] [place] [address] 55507 2546 Apr, assisted (current) use of anticoagulants Z79.01 [facility] [id number] [place] [address] 93768 2546 Mar, assisted (current) use of anticoagulants Z79.01 [facility] [id number] [place] [address] 50586 2546 Mar, [facility] [id number] [place] [address] 28290 2546 Mar, 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 [facility] [id number] [place] [address] [id number] Jan, Dental examination Z01.20 [facility] [address] [place] [address] [id number] Jan, [facility] [id number] [place] [address] 50926- 5796 Jan, assisted (current) use of anticoagulants Z79.01 [facility] [id number] [place] [address] 91384- 0967 Jan, History of DVT (deep vein thrombosis) Z86.718 [facility] [id number] [place] [address] 63095- 2354 Jan, Generalized anxiety disorder F41.1 and Peripheral edema R60.9 [facility] [id number] [place] [address] 17464- 6818 Nov, History of DVT (deep vein thrombosis) Z86.718 [facility] [id number] [place] [address] 60416- 2852 Nov, 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 [facility] [id number] [place] [address] 24806 -3894 Nov, Acute non-recurrent maxillary sinusitis J01.00 [facility] [id number] [place] [address] 84164- 7531 Oct, 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 [facility] [id number] [place] [address] 19661- 6357 Oct, Personal history of venous thrombosis and embolism Z86.718 [facility] [id number] [place] [address] 13319- 2004 Sep, [facility] [id number] [place] [address] 35355- 3430 Sep, Personal history of venous thrombosis and embolism Z86.718 [facility] [id number] [place] [address] 00403- 6913 Sep, assisted (current) use of anticoagulants Z79.01 [place] [id number] [place] [address] 97919- 2633 Sep, assisted (current) use of anticoagulants Z79.01 [place] [id number] [place] [address] 69502- 4457 Sep, Generalized anxiety disorder F41.1 and History of DVT (deep vein thrombosis) Z86.718 [place] [id number] [place] [address] 75761- 8066 Aug, History of DVT (deep vein thrombosis) Z86.718 ; Generalized anxiety disorder F41.1 ; 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 ; Pelvic pain R10.2 ; Hypertriglyceridemia E78.1 ; Excessive daytime sleepiness G47.19 ; Colon cancer screening Z12.11 ; Screening for breast cancer Z12.39 ; Peripheral edema R60.9 and Gastroesophageal reflux disease, esophagitis presence not specified K21.9 [place] [id number] [place] [address] 94243- 3103 Aug, [place] [id number] [place] [address] 97258- 2411 July, [place] [id number] [place] [address] 30032- 1120 July, History of DVT (deep vein thrombosis) Z86.718 [place] [id number] [place] [address] 67326- 9491 Jun, Generalized anxiety disorder F41.1 [place] [id number] [place] [address] 09072- 7924 Jun, History of DVT (deep vein thrombosis) Z86.718 [place] [id number] [place] [address] 99016- 3746 Jun, History of DVT (deep vein thrombosis) Z86.718 [place] [address] [place] [address]- 9338 Jun, History of DVT (deep vein thrombosis) Z86.718 [facility] [id number] [place] [address] 17531- 8873 Jun, History of DVT (deep vein thrombosis) Z86.718 [facility] [id number] [place] [address] 49939- 5733 May, History of DVT (deep vein thrombosis) Z86.718 [facility] [id number] [place] [address] 82908- 6704 May, 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 [place] [address] 43366- 7713 May, 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 [place] [id number] [place] [address] 07792- 8087 May, History of DVT (deep vein thrombosis) Z86.718 [facility] [id number] [place] [address] 84491 -4420 Apr, Bacterial conjunctivitis of left eye H10.9 and H/O motion sickness Z87.898 [facility] [id number] [place] [address] 40756- 0362 Apr, History of DVT (deep vein thrombosis) Z86.718 [facility] [id number] [place] [address] 95423- 7548 Apr, History of DVT (deep vein thrombosis) Z86.718 [place] [id number] [place] [address] 45480- 7389 Apr, History of DVT (deep vein thrombosis) Z86.718 [facility] [id number] [place] [address] 89869- 6016 14 Apr, 2016 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 [facility] [address] [address]- 8181 Mar, [facility] [id number] [place] [address] 39030- 1616 Mar, assisted (current) use of anticoagulants Z79.01 [facility] [id number] [place] [address] 98023 2546 Mar, Hypertriglyceridemia E78.1 and 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 [place] [id number] [place] [address] 26661 2546 Feb, assisted (current) use of anticoagulants Z79.01 [place] [id number] [place] [address] 37856 2546 Feb, assisted (current) use of anticoagulants Z79.01 [place] [id number] [place] [address] 16139- 3946 Feb, 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 [place] [id number] [place] [address] 86285 2546 Dec, [place] [id number] [place] [address] 77501- 4876 Nov, [place] [id number] [place] [address] 11354- 4426 Nov, History of DVT (deep vein thrombosis) Z86.718 ; Tremulousness R25.1 ; Generalized anxiety disorder F41.1 ; Peripheral edema R60.9 and Hypertriglyceridemia E78.1 [place] [address], [place] [address] 2546 Oct, History of DVT (deep vein thrombosis) Z86.718 [place] [address] [place] [address] 09879 2546 Oct, [place] [id number] [place] [address] 81173- 2546 Sep, History of DVT (deep vein thrombosis) Z86.718 [facility] [address] [place] [address] 41343- 1209 Sep, 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 [facility] [id number] [place] [address] 55706- 8301 July, [facility] [id number] [place] [address] 27687- 3542 July, 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 [facility] [id number] [place] [address] 27694- 7001 July, 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 [place] [id number] [place] [address] 77763- 2724 Jun, assisted (current) use of anticoagulants Z79.01 [facility] [id number] [place] [address] 58590 -9231 Jun, Coccyx pain M53.3 ; Encounter for therapeutic drug level monitoring Z51.81 and video games mechanic current use 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.01 [facility] [id number] [place] [address] 13522- 5850 May, Abnormal mammogram R92.8 [facility] [id number] [place] [address] 41203 -7265 May, [facility] [id number] [place] [address] 43164 -7756 May, Acute vaginitis N76.0 and Encounter for other screening for malignant neoplasm of breast Z12.39 [place] [id number] [place] [address] 11251- 1191 Apr, [facility] [id number] [place] [address] 75551- 2807 Apr, [facility] [id number] [place] [address] 80628- 9083 Apr, Peripheral edema R60.9 [facility] [id number] [place] [address] 23799 2546 Apr, assisted (current) use of anticoagulants Z79.01 [facility] [id number] [place] [address] 93685 2546 Apr, Peripheral edema R60.9 and 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 [place] [id number] [place] [address] 70267 2546 Apr, assisted (current) use of anticoagulants Z79.01 [place] [id number] [place] [address] 37147 2546 Apr, [place] [id number] [place] [address] 29025 2546 Apr, assisted (current) use of anticoagulants Z79.01 [place] [id number] [place] [address] 69499 2546 Apr, Peripheral edema R60.9 [place] [id number] [place] [address] 09986 2546 Mar, 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 [place] [id number] [place] [address] 17238 2546 Mar, 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 and Hypertriglyceridemia E78.1 [place] [address] [place] [address] 30449 2546 Mar, assisted (current) use of anticoagulants Z79.01 [place] [id number] [place] [address] 74530 2546 Mar, 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 [place] [id number] [place] [address] 23963 2546 Mar, [place] [address] [place] [address]- 0978 Mar, 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 ; Hypertriglyceridemia E78.1 ; Personal history of venous thrombosis and embolism Z86.718 and Lump R22.9 [place] [address] [place] [address] 57568- 6234 Mar, Personal history of venous thrombosis and embolism Z86.718 [place] [id number] [place] [address] 63608- 1252 Mar, Personal history of venous thrombosis and embolism Z86.718 [place] [id number] [place] [address] 47224- 4944 Mar, [place] [id number] [place] [address] 78303- 8409 Dec, Personal history of venous thrombosis and embolism Z86.718 [place] [id number] [place] [address] 19395- 5458 Dec, Personal history of venous thrombosis and embolism V12.51 [place] [id number] [place] [address] 79594- 3690 Nov, Personal history of venous thrombosis and embolism V12.51 [place] [address] [place] [address] 07727- 5945 Nov, Personal history of venous thrombosis and embolism V12.51 [place] [address] [place] [address] 66132- 3675 Nov, Personal history of venous thrombosis and embolism V12.51 [place] [address] [place] [address] 61386- 1996 Nov, Personal history of venous thrombosis and embolism V12.51 [place] [address] [place] [address] 07112- 7006 Nov, [place] [id number] [place] [address] 17579- 6696 Oct, Dysuria 788.1 [facility] [address] [address]- 4096 Oct, Personal history of venous thrombosis and embolism V12.51 [facility] [address], [place] [address]- 8015 Oct, [facility] [address] [address]- 4271 Oct, Personal history of venous thrombosis and embolism V12.51 [facility] [address] [place] [address] 47030- 7305 Sep, Personal history of venous thrombosis and embolism V12.51 [facility] [address] [place] [address] 35898- 6448 Sep, Personal history of venous thrombosis and embolism V12.51 [facility] [address] [place] [address] 33223- 8111 Aug, Personal history of venous thrombosis and embolism V12.51 [facility] [address], [place] [address]- 3267 Aug, Personal history of venous thrombosis and embolism V12.51 [facility] [address] [address]- 3389 Aug, Personal history of venous thrombosis and embolism V12.51 [facility] [address], [place] [address]- 3986 July, Generalized anxiety disorder 300.02 ; Abdominal pain, left lower quadrant 789.04 and Personal history of venous thrombosis and embolism V12.51 [facility] [address], [place] [address]- 0570 Jun, [facility] [address], [place] [address]- 3492 Jun, [facility] [address], [place] [address]- 4133 May, [facility] [place] [facility] [address] [id number] [place] [address]- 7918 May, [facility] [place] [facility] [address] [id number] [place] [address]- 7750 May, [facility] [place] [facility] [address] [id number] [place] [address]- 8090 May, [facility] [place] [facility] [address] [id number] [place] [address]- 8447 May, [facility] [place] [facility] [address] [id number] [place] [address]- 1609 May, [facility] [place] [facility] [address] [id number] [place] [address]- 4892 May, [facility] [place] [facility] [address] [facility] [id number] [place] [address]- 2507 May, [facility] [place] [facility] [address] [id number] [place] [address]- 3359 Apr, [facility] [place] [facility] [address] [id number] [place] [address]- 9622 Apr, [facility] [place] [facility] [address] [facility] [id number] [place] [address]- 9542 Apr, [facility] [place] [facility] [address] [facility] [id number] [place] [address]- 4607 Apr, [facility] [place] [facility] [address] [id number] [address]- 9840 Apr, [facility] [place] [facility] [address] [id number] [place] [address]- 9414 Mar, [facility] [place] [facility] [address] [id number] [place] [address]- 9381 Mar, [facility] [place] [facility] [address] [facility] [id number] [address]- 4047 Mar, [facility] [place] [facility] [address] [id number] [place] [address]- 2326 Mar, [facility] [place] [facility] [address] [id number] [place] [address]- 3608 Mar, [facility] [place] [facility] [address] [id number] [place] [address]- 5239 Mar, [facility] [place] [facility] [address] [id number] [place] [address]- 9588 Feb, [facility] [place] [facility] [address] [id number] [place] [address]- 3520 Feb, [facility] [place] [facility] [address] [id number] [place] [address]- 3742 Feb, [facility] [place] [facility] [address] [id number] [place] [address]- 4614 Feb, [facility] [place] [facility] [address] [facility] [id number] [place] [address]- 0367 Feb, [facility] [place] [facility] [address] [id number] [place] [address]- 1095 Feb, [facility] [place] [facility] [address] [id number] [place] [address]- 8266 Feb, [facility] [place] [facility] [address] [id number] [place] [address]- 8177 Feb, [facility] [place] [facility] [address] [id number] [place] [address]- 3925 Feb, [facility] [place] [facility] [address] [id number] [place] [address]- 0621 Feb, [facility] [place] [facility] [address] [id number] [place] [address]- 0448 Jan, [facility] [place] [facility] [address] [id number] [place] [address]- 3780 Jan, [facility] [place] [facility] [address] [facility] [id number] [place] [address]- 8986 Jan, [facility] [place] [facility] [address] [id number] [place] [address] Jan, [facility] [place] [facility] [address] [id number] [place] [address] Jan, [facility] [place] [facility] [address] [id number] [place] [address] Jan, [facility] [place] [facility] [address] [id number] [place] [address] Jan, [facility] [place] [facility] [address] [id number] [place] [address] Jan, [facility] [place] [facility] [address] [id number] [place] [address] Jan, [facility] [place] [facility] [address] [id number] [place] [address] Jan, [facility] [place] [facility] [address] [id number] [place] [address] Dec, [facility] [place] [facility] [address] [id number] [place] [address] Dec, [facility] [place] [facility] [address] [id number] [place] [address] Dec, [facility] [place] [facility] [address] [id number] [place] [address] Dec, [facility] [place] [facility] [address] [id number] [place] [address] Dec, [facility] [place] [facility] [address] [id number] [place] [address] Dec, [facility] [place] [facility] [address] [id number] [place] [address] Dec, [facility] [place] [facility] [address] [id number] [place] [address] Dec, [facility] [place] [facility] [address] [id number] [place] [address] Dec, [facility] [place] [facility] [address] [id number] [place] [address] Dec, [facility] [place] [facility] [address] [id number] [place] [address] Dec, [facility] [place] [facility] [address] [id number] [place] [address] Dec, [facility] [place] [facility] [address] [id number] [place] [address] Dec, [facility] [place] [facility] [address] [id number] [place] [address] Dec, [facility] [place] [facility] [address] [id number] [place] [address] Dec, [facility] [place] [facility] [address] [id number] [place] [address]- [address] 30 Nov, 2013 [facility] [place] [facility] [address] [id number] [place] [address] 30 Nov, 2013 [facility] [place] [facility] [address] [id number] [place] [address] 26 Nov, 2013 [facility] [place] [facility] [address] [id number] [place] [address] 26 Nov, 2013 [facility] [place] [facility] [address] [id number] [address] 24 Sep, 2013 [facility] [place] [facility] [address] [id number], [place] [address] 24 Sep, 2013 [facility] [place] [facility] [address] [id number] [place] [address] 23 Sep, 2013 [facility] [place] [facility] [address] [id number] [place] [address] 23 Nov, 2013 [facility] [place] [facility] [address] [address] [id number] [place] [address] 18 Nov, 2013 [facility] [place] [facility] [address] [id number] [place] [address] 18 Nov, 2013 [facility] [place] [facility] [address] [id number] [place] [address] 1166 17 Nov, 2013 [facility] [place] [facility] [address] [id number] [place] [address] 1206 17 Nov, 2013 [facility] [place] [facility] [address] [id number] [place] [address] 6836 11 Nov, 2013 [facility] [place] [facility] [address] [id number] [place] [address] 2546 11 Nov, 2013 [facility] [place] [facility] [address] [id number] [place] [address] 3634 10 Nov, 2013 [facility] [place] [facility] [address] [id number] [place] [address]- 5960 10 Nov, 2013 [facility] [place] [facility] [address] [id number] [place] [address] 3915 08 Nov, 2013 [facility] [place] [facility] [address] [id number] [place] [address]- 8535 08 Nov, 2013 [facility] [place] [facility] [address] [id number] [place] [address] Sep, 2013 [facility] [place] [facility] [address] [id number] [place] [address] 9328 Sep, [facility] [place] [facility] [address] [id number] [place] [address]- 8282 Sep, 2013 [facility] [place] [facility] [address] [id number] [place] [address]- [address] Sep, 2013 [facility] [place] [facility] [address] [id number] [place] [address]- 5460 Sep, [facility] [place] [facility] [address] [id number] [place] [address]- 4396 Sep, 2013 [facility] [place] [facility] [address] [id number] [place] [address]- 7539 Aug, [facility] [place] [facility] [address] [id number] [place] [address]- 4780 Aug, [facility] [place] [facility] [address] [id number] [place] [address]- 4532 Aug, [facility] [place] [facility] [address] [id number] [place] [address]- 2071 Aug, [facility] [place] [facility] [address] [id number] [place] [address]- 7439 Aug, [facility] [place] [facility] [address] [id number] [place] [address]- 9[address] Aug, [facility] [place] [facility] [address] [id number] [place] [address]- 7860 Aug, [facility] [place] [facility] [address] [id number] [place] [address] 9129 Aug, [facility] [place] [facility] [address] [id number] [place] [address]- 1756 Aug, [facility] [place] [facility] [address] [id number] [place] [address]- 0799 Aug, [facility] [place] [facility] [address] [id number] [place] [address]- 8705 Aug, [facility] [place] [facility] [address] [id number] [place] [address]- 6415 July, [facility] [place] [facility] [address] [id number] [place] [address]- 1371 July, [facility] [place] [facility] [address] [id number] [place] [address]- 1995 Jun, [facility] [place] [facility] [address] [id number] [place] [address]- 5751 Jun, [facility] [place] [facility] [address] [id number] [place] [address]- 2989 Jun, [facility] [place] [facility] [address] [id number] [place] [address]- 0603 18 Jun, 2013 [facility] [place] [facility] [address] [id number] [place] [address]- 3499 18 Jun, 2013 [facility] [place] [facility] [address] [id number] [place] [address]- 5766 18 Jun, 2013 [facility] [place] [facility] [address] [id number] [place] [address]- 0907 15 Jun, 2013 [facility] [place] [facility] [address] [id number] [place] [address]- 3635 15 Jun, 2013 [facility] [place] [facility] [address] [id number] [place] [address]- 8472 Jun, [facility] [place] [facility] [address] [id number] [place] [address]- 7323 Jun, [facility] [place] [facility] [address] [id number] [place] [address]- 7310 Jun, [facility] [place] [facility] [address] [id number] [place] [address]- 2126 Jun, [facility] [place] [facility] [address] [id number] [place] [address]- 9410 May, [facility] [place] [facility] [address] [id number] [place] [address]- 3230 May, [facility] [place] [facility] [address] [id number] [place] [address]- 5920 May, [facility] [place] [facility] [address] [id number] [place] [address]- 1383 May, [facility] [place] [facility] [address] [id number] [place] [address]- 8432 May, [facility] [place] [facility] [address] [id number] [place] [address]- 0855 19 May, 2013 [facility] [place] [facility] [address] [id number] [place] [address]- 1277 May, [facility] [place] [facility] [address] [id number] [place] [address]- 5447 May, [facility] [place] [facility] [address] [id number] [place] [address]- 3127 May, [facility] [place] [facility] [address] [id number] [place] [address]- 6320 May, [facility] [place] [facility] [address] [id number] [place] [address]- 1550 May, [facility] [place] [facility] [address] [id number] [place] [address]- 4261 May, [facility] [place] [facility] [address] [id number] [place] [address]- 5081 Apr, [facility] [place] [facility] [address] [facility] [address] [facility] [id number] [place] [address]- 6705 Apr, [facility] [place] [facility] [address] [id number] [place] [address]- 1233 Apr, [facility] [place] [facility] [address] [id number] [place] [address]- 0276 Apr, [facility] [place] [facility] [address] [facility] [id number] [place] [address]- 8091 Apr, [facility] [place] [facility] [address] [facility] [id number] [place] [address]- 6048 Apr, [facility] [place] [facility] [address] [facility] [id number] [place] [address]- 1007 Apr, [facility] [place] [facility] [address] [id number] [place] [address]- 6185 Apr, [facility] [place] [facility] [address] [id number] [place] [address]- 3822 Apr, [facility] [place] [facility] [address] [facility] [id number] [place] [address]- 1609 Apr, [facility] [place] [facility] [address] [facility] [id number] [place] [address]- 9880 Apr, [facility] [place] [facility] [address]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
--- OUTSIDE RECORDS SUMMARY | 2018-08-02 09:12 | XMS REPORT ---
Author Author ASHLEY BRUNO [facility] e[employer] Address Unknown Phone Unavailable Care Team Providers Care Dsp Engineer Name Role Phone ASHLEY BRUNO Unavailable Allergies [...]
--- OUTSIDE RECORDS SUMMARY | 2018-08-02 09:13 | XMS REPORT ---
Author Author KIANA ASHLEY [facility] Address [address] [place] [address] Care Team Providers Care Carbon Brusher Assembler Name Role Phone ELMO BRUNOY Unavailable PROBLEMS Type Condition ICD9-CM Code ODD93-QL Code Onset Dates Condition Status SNOMED Code Problem Generalized anxiety disorder F41.1 Active 329018228 Problem 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 Active 596363491 Problem History of DVT (deep vein thrombosis) Z86.718 Active 735799343 Problem Factor V Leiden D68.51 Active 295957565 Problem Hypertriglyceridemia E78.1 Active 306377558 Problem custodial (current) use of anticoagulants Z79.01 Active 320601378 Problem Thyroid nodule E04.1 Active 006450524 Problem Excessive daytime sleepiness G47.19 Active 554329659995 Problem Peripheral edema R60.9 Active 173991335 Problem Pelvic pain R10.2 Active 62708106 Problem Gastroesophageal reflux disease, esophagitis presence not specified K21.9 Active 453012135 Problem Presence of IVC filter Z95.828 Active 755288869 ALLERGIES No Information ENCOUNTERS Encounter Location Date Diagnosis [place] [address] [address] Aug, [facility] [address] [place] [id number] [place] [address] 22451- 6155 Aug, [facility] [id number] [place] [address] 38390- 5694 Aug, Acute pain of left shoulder M25.512 and Thyroid nodule E04.1 [facility] [id number] [place] [address] 68290- 5498 July, Superior glenoid labrum lesion of left shoulder, subsequent encounter S43.432D [place] [address] [address] [id number] [place] [address] 72278- 8064 Jun, History of DVT (deep vein thrombosis) Z86.718 [facility] [id number] [place] [address] 23863- 0042 Jun, History of DVT (deep vein thrombosis) Z86.718 [place] [address] [place] [id number] [place] [address] 22480- 1669 Jun, Impingement syndrome, shoulder, left M75.42 [place] [address] [id number] [place] [address] 81523- 0227 May, Subacromial bursitis of left shoulder joint M75.52 [place] [address] [address] [id number] [place] [address] 12771- 5514 May, [place] [address] [id number] [place] [address] 31377- 5590 May, Hypertriglyceridemia E78.1 ; custodial (current) use of anticoagulants Z79.01 and Excessive daytime sleepiness G47.19 [place] [address] [address] [id number] [place] [address] 40034- 7623 May, History of DVT (deep vein thrombosis) Z86.718 ; Generalized anxiety disorder F41.1 ; Hypertriglyceridemia E78.1 ; 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 ; Subacromial bursitis of left shoulder joint M75.52 and Excessive daytime sleepiness G47.19 [place] [id number] [place] [address] 32796- 5980 May, [place] [address] [address] [id number] [place] [address] 27937- 0652 May, custodial (current) use of anticoagulants Z79.01 [place] [address] [id number] [place] [address] 77239- 2879 Apr, custodial (current) use of anticoagulants Z79.01 [place] [address] [id number] [place] [address] 18625- 9378 Apr, custodial (current) use of anticoagulants Z79.01 [facility] [id number] [place] [address] 47365 2546 Apr, custodial (current) use of anticoagulants Z79.01 [facility] [address] [id number] [place] [address] 72452 2546 Apr, [facility] [address] [address] 2546 Apr, custodial (current) use of anticoagulants Z79.01 [facility] [address] [id number] [place] [address] 28392 2546 13 Apr, 2017 custodial (current) use of anticoagulants Z79.01 [facility] [id number] [place] [address] 13241 2546 Apr, custodial (current) use of anticoagulants Z79.01 [facility] [id number] [place] [address] 77121 2546 Apr, custodial (current) use of anticoagulants Z79.01 [facility] [id number] [place] [address] 95478 2546 Apr, 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 [facility] [address] [id number] [place] [address] 61455 2546 Apr, custodial (current) use of anticoagulants Z79.01 [facility] [id number] [place] [address] 78245 2546 Mar, custodial (current) use of anticoagulants Z79.01 [facility] [id number] [place] [address] 74248 2546 Mar, [facility] [address] [place] [address] [id number] [place] [address] 99977 2546 Mar, 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 [facility] [id number] [place] [address] [id number] Jan, Dental examination Z01.20 [facility] [id number] [place] [address] [id number] Jan, [facility] [address] [place] [id number] [place] [address] 79334- 7747 Jan, custodial (current) use of anticoagulants Z79.01 [facility] [id number] [place] [address] 87007- 8838 Jan, History of DVT (deep vein thrombosis) Z86.718 [facility] [address] [place] [id number] [place] [address] 38781- 3881 Jan, Generalized anxiety disorder F41.1 and Peripheral edema R60.9 [facility] [address] [place] [id number] [place] [address] 51042- 8200 Nov, History of DVT (deep vein thrombosis) Z86.718 [facility] [address] [place] [address] [id number] [place] [address] 14975- 0735 Nov, 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 [facility] [id number] [place] [address] 55000 -5344 Nov, Acute non-recurrent maxillary sinusitis J01.00 [facility] [address] [place] [address] 03658- 2630 Oct, 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 [facility] [address] [place] [address] 13951- 8842 Oct, Personal history of venous thrombosis and embolism Z86.718 [facility] [address] [address] [id number] [place] [address] 39251- 6723 Sep, [facility] [address] [address] [id number] [place] [address] 36374- 2273 Sep, Personal history of venous thrombosis and embolism Z86.718 [facility] [address] [place] [address] [id number] [place] [address] 73081- 1707 Sep, custodial (current) use of anticoagulants Z79.01 [place] [address] [place] [id number] [place] [address] 76766- 6016 Sep, custodial (current) use of anticoagulants Z79.01 [place] [address] [place] [id number] [place] [address] 91028- 4573 Sep, Generalized anxiety disorder F41.1 and History of DVT (deep vein thrombosis) Z86.718 [place] [address] [place] [address] [id number] [place] [address] 02883- 7612 Aug, History of DVT (deep vein thrombosis) Z86.718 ; Generalized anxiety disorder F41.1 ; 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 ; Pelvic pain R10.2 ; Hypertriglyceridemia E78.1 ; Excessive daytime sleepiness G47.19 ; Colon cancer screening Z12.11 ; Screening for breast cancer Z12.39 ; Peripheral edema R60.9 and Gastroesophageal reflux disease, esophagitis presence not specified K21.9 [place] [address] [place] [id number] [place] [address] 59942- 7953 Aug, [place] [address] [place] [id number] [place] [address] 20436- 2718 July, [place] [address] [place] [id number] [place] [address] 36582- 1513 July, History of DVT (deep vein thrombosis) Z86.718 [place] [address] [place] [id number] [place] [address] 43938- 7196 Jun, Generalized anxiety disorder F41.1 [place] [address] [place] [id number] [place] [address] 15387- 6238 Jun, History of DVT (deep vein thrombosis) Z86.718 [place] [address] [place] [id number] [place] [address] 63607- 3600 Jun, History of DVT (deep vein thrombosis) Z86.718 [place] [address] [place] [address]- 6406 Jun, History of DVT (deep vein thrombosis) Z86.718 [facility] [address] [place] [id number] [place] [address] 42374- 4682 Jun, History of DVT (deep vein thrombosis) Z86.718 [facility] [address] [place] [address] [id number] [place] [address] 93414- 8546 May, History of DVT (deep vein thrombosis) Z86.718 [facility] [address] [place] [id number] [place] [address] 26101- 8054 May, 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 [place] [address] 28287- 7725 May, 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 [place] [address] [place] [id number] [place] [address] 12389- 1172 May, History of DVT (deep vein thrombosis) Z86.718 [facility] [address] [place] [id number] [place] [address] 67604 -5500 Apr, Bacterial conjunctivitis of left eye H10.9 and H/O motion sickness Z87.898 [facility] [address] [place] [address] 59223- 3825 Apr, History of DVT (deep vein thrombosis) Z86.718 [facility] [address] [place] [id number] [place] [address] 45307- 5170 Apr, History of DVT (deep vein thrombosis) Z86.718 [place] [address] [place] [id number] [place] [address] 79441- 6279 Apr, History of DVT (deep vein thrombosis) Z86.718 [facility] [address] [place] [id number] [place] [address] 77959- 5227 14 Apr, 2016 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 [facility] [address], [place] [address]- 7131 Mar, [facility] [address] [place] [id number] [place] [address] 03427- 6386 Mar, custodial (current) use of anticoagulants Z79.01 [facility] [address] [place] [address] 86161 2546 Mar, Hypertriglyceridemia E78.1 and 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 [place] [address] [place] [id number] [place] [address] 50249 2546 Feb, custodial (current) use of anticoagulants Z79.01 [place] [address] [place] [id number] [place] [address] 60252 2546 Feb, custodial (current) use of anticoagulants Z79.01 [place] [address] [place] [id number] [place] [address] 27759- 4286 Feb, 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 [place] [address] [place] [address] 70314 2546 Dec, [place] [address] [place] [id number] [place] [address] 11215- 3846 Nov, [place] [address] [place] [address] 41390- 3296 Nov, History of DVT (deep vein thrombosis) Z86.718 ; Tremulousness R25.1 ; Generalized anxiety disorder F41.1 ; Peripheral edema R60.9 and Hypertriglyceridemia E78.1 [place] [address], [place] [address] 2546 Oct, History of DVT (deep vein thrombosis) Z86.718 [place] [address] [place] [address] 08395 2546 Oct, [place] [address] [place] [address] 68563- 2546 Sep, History of DVT (deep vein thrombosis) Z86.718 [facility] [address] [place] [address] 71959- 9748 Sep, 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 [facility] [address] [id number] [place] [address] 67800- 7326 July, [facility] [address] [id number] [place] [address] 92156- 3886 July, 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 [facility] [address] [place] [id number] [place] [address] 61297- 1174 July, 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 [place] [address] [place] [id number] [place] [address] 34350- 8038 Jun, custodial (current) use of anticoagulants Z79.01 [facility] [id number] [place] [address] 20594 -0527 Jun, Coccyx pain M53.3 ; Encounter for therapeutic drug level monitoring Z51.81 and shellfish manager current use 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.01 [facility] [address] [place] [address] [id number] [place] [address] 25199- 8562 May, Abnormal mammogram R92.8 [facility] [id number] [place] [address] 22210 -8762 May, [facility] [id number] [place] [address] 66571 -6972 May, Acute vaginitis N76.0 and Encounter for other screening for malignant neoplasm of breast Z12.39 [place] [address] [place] [id number] [place] [address] 05905- 9423 Apr, [facility] [id number] [place] [address] 90343- 3962 Apr, [facility] [address] [id number] [place] [address] 83100- 3120 Apr, Peripheral edema R60.9 [facility] [address] [id number] [place] [address] 25761 2546 Apr, custodial (current) use of anticoagulants Z79.01 [facility] [address] [place] [id number] [place] [address] 11635 2546 Apr, Peripheral edema R60.9 and 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 [place] [address] [place] [id number] [place] [address] 62558 2546 Apr, custodial (current) use of anticoagulants Z79.01 [place] [address] [id number] [place] [address] 28776 2546 Apr, [place] [address] [id number] [place] [address] 16493 2546 Apr, custodial (current) use of anticoagulants Z79.01 [place] [address] [id number] [place] [address] 46065 2546 Apr, Peripheral edema R60.9 [place] [address] [place] [id number] [place] [address] 15842 2546 Mar, 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 [place] [address] [place] [id number] [place] [address] 97627 2546 Mar, 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 and Hypertriglyceridemia E78.1 [place] [address] [place] [address] 38946 2546 Mar, custodial (current) use of anticoagulants Z79.01 [place] [address] [id number] [place] [address] 83417 2546 Mar, 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 [place] [address] [place] [id number] [place] [address] 18853 2546 Mar, [place] [address] [place] [address]- 6741 Mar, 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 ; Hypertriglyceridemia E78.1 ; Personal history of venous thrombosis and embolism Z86.718 and Lump R22.9 [place] [address] [place] [address] 92343- 3521 Mar, Personal history of venous thrombosis and embolism Z86.718 [place] [address] [id number] [place] [address] 63223- 1999 Mar, Personal history of venous thrombosis and embolism Z86.718 [place] [id number] [place] [address] 79753- 7232 Mar, [place] [address] [id number] [place] [address] 44737- 3076 Dec, Personal history of venous thrombosis and embolism Z86.718 [place] [id number] [place] [address] 92963- 1930 Dec, Personal history of venous thrombosis and embolism V12.51 [place] [id number] [place] [address] 05040- 9761 Nov, Personal history of venous thrombosis and embolism V12.51 [place] [address] [place] [address] 25428- 0039 Nov, Personal history of venous thrombosis and embolism V12.51 [place] [address] [place] [address] 38777- 0712 Nov, Personal history of venous thrombosis and embolism V12.51 [place] [address] [place] [address] 58814- 8213 Nov, Personal history of venous thrombosis and embolism V12.51 [place] [address] [place] [address] 29055- 5803 Nov, [place] [id number] [place] [address] 30606- 8714 Oct, Dysuria 788.1 [facility] [address], [place] [address]- 5257 Oct, Personal history of venous thrombosis and embolism V12.51 [facility] [address], [place] [address]- 4370 Oct, [facility] [address], [place] [address]- 1908 Oct, Personal history of venous thrombosis and embolism V12.51 [facility] [address] [place] [address] 30618- 5716 Sep, Personal history of venous thrombosis and embolism V12.51 [facility] [address] [place] [address] 72519- 1590 Sep, Personal history of venous thrombosis and embolism V12.51 [facility] [address] [place] [address] 77673- 3712 Aug, Personal history of venous thrombosis and embolism V12.51 [facility] [address] [address]- 2975 Aug, Personal history of venous thrombosis and embolism V12.51 [facility] [address] [address]- 0527 Aug, Personal history of venous thrombosis and embolism V12.51 [facility] [address], [place] [address]- 0801 July, Generalized anxiety disorder 300.02 ; Abdominal pain, left lower quadrant 789.04 and Personal history of venous thrombosis and embolism V12.51 [facility] [address], [place] [address]- 4906 Jun, [facility] [address] [place] [address]- 4162 Jun, [facility] [address] [address]- 3556 May, [facility] [place] [facility] [address] [id number] [place] [address]- 2451 May, [facility] [place] [facility] [address] [id number] [place] [address]- 9106 May, [facility] [place] [facility] [address] [id number] [place] [address]- 7198 May, [facility] [place] [facility] [address] [id number] [place] [address]- 9745 May, [facility] [place] [facility] [address] [id number] [place] [address]- 6806 May, [facility] [place] [facility] [address] [id number] [place] [address]- 5019 May, [facility] [place] [facility] [address] [facility] [id number] [place] [address]- 2502 May, [facility] [place] [facility] [address] [id number] [place] [address]- 9918 Apr, [facility] [place] [facility] [address] [id number] [place] [address]- 8719 Apr, [facility] [place] [facility] [address] [facility] [id number] [place] [address]- 4326 Apr, [facility] [place] [facility] [address] [facility] [id number] [place] [address]- 8413 Apr, [facility] [place] [facility] [address] [id number], [place] [address]- 0649 Apr, [facility] [place] [facility] [address] [id number] [place] [address]- 9435 Mar, [facility] [place] [facility] [address] [id number] [place] [address]- 2440 Mar, [facility] [place] [facility] [address] [facility] [id number] [address]- 1628 Mar, [facility] [place] [facility] [address] [id number] [place] [address]- 9414 Mar, [facility] [place] [facility] [address] [id number] [place] [address]- 0271 Mar, [facility] [place] [facility] [address] [id number] [place] [address]- 8366 Mar, [facility] [place] [facility] [address] [id number] [place] [address]- 4676 Feb, [facility] [place] [facility] [address] [id number] [place] [address]- 9693 Feb, [facility] [place] [facility] [address] [id number] [place] [address]- 3075 Feb, [facility] [place] [facility] [address] [id number] [place] [address]- 7297 Feb, [facility] [place] [facility] [address] [facility] [id number] [place] [address]- 2307 Feb, [facility] [place] [facility] [address] [id number] [place] [address] Feb, [facility] [place] [facility] [address] [id number] [place] [address] Feb, [facility] [place] [facility] [address] [id number] [place] [address] Feb, [facility] [place] [facility] [address] [id number] [place] [address] Feb, [facility] [place] [facility] [address] [id number] [place] [address] Feb, [facility] [place] [facility] [address] [id number] [place] [address] Jan, [facility] [place] [facility] [address] [id number] [place] [address] Jan, [facility] [place] [facility] [address] [facility] [id number] [place] [address] Jan, [facility] [place] [facility] [address] [id number] [place] [address] Jan, [facility] [place] [facility] [address] [id number] [place] [address] Jan, [facility] [place] [facility] [address] [id number] [place] [address] Jan, [facility] [place] [facility] [address] [id number] [place] [address] Jan, [facility] [place] [facility] [address] [id number] [place] [address] Jan, [facility] [place] [facility] [address] [id number] [place] [address] Jan, [facility] [place] [facility] [address] [id number] [place] [address] Jan, [facility] [place] [facility] [address] [id number] [place] [address] Dec, [facility] [place] [facility] [address] [id number] [place] [address] Dec, [facility] [place] [facility] [address] [id number] [place] [address] Dec, [facility] [place] [facility] [address] [id number] [place] [address] Dec, [facility] [place] [facility] [address] [id number] [place] [address] Dec, [facility] [place] [facility] [address] [id number] [place] [address] Dec, [facility] [place] [facility] [address] [id number] [place] [address] Dec, [facility] [place] [facility] [address] [id number] [place] [address] Dec, [facility] [place] [facility] [address] [id number] [place] [address] Dec, [facility] [place] [facility] [address] [id number] [place] [address] Dec, [facility] [facility] [address] [id number] [place] [address] Dec, [facility] [place] [facility] [address] [id number] [place] [address] Dec, [facility] [place] [facility] [address] [id number] [place] [address] Dec, [facility] [place] [facility] [address] [id number] [place] [address] 4758 Dec, [facility] [place] [facility] [address] [id number] [place] [address] 3593 Dec, [facility] [place] [facility] [address] [id number] [place] [address] 8650 30 Nov, 2013 [facility] [place] [facility] [address] [id number] [place] [address] 7324 30 Nov, 2013 [facility] [place] [facility] [address] [id number] [place] [address] 9029 26 Nov, 2013 [facility] [place] [facility] [address] [id number] [place] [address] 3311 26 Nov, 2013 [facility] [place] [facility] [address] [id number], [place] [address] 24 Sep, 2013 [facility] [place] [facility] [address] [id number], [place] [address] 94[address] 24 Sep, 2013 [facility] [place] [facility] [address] [id number] [place] [address]- 7176 23 Sep, 2013 [facility] [place] [facility] [address] [id number] [place] [address]- 8027 23 Nov, 2013 [facility] [place] [facility] [address] [id number] [place] [address]- 5084 18 Nov, 2013 [facility] [place] [facility] [address] [id number] [place] [address]- 5457 18 Nov, 2013 [facility] [place] [facility] [address] [id number] [place] [address]- 4026 17 Nov, 2013 [facility] [place] [facility] [address] [id number] [place] [address]- 6146 17 Nov, 2013 [facility] [place] [facility] [address] [id number] [place] [address]- 1476 11 Nov, 2013 [facility] [place] [facility] [address] [id number] [place] [address] 2546 11 Nov, 2013 [facility] [place] [facility] [address] [id number] [place] [address]- 1786 10 Nov, 2013 [facility] [place] [facility] [address] [id number] [place] [address]- 2452 10 Nov, 2013 [facility] [place] [facility] [address] [id number] [place] [address]- 2638 08 Nov, 2013 [facility] [place] [facility] [address] [id number] [place] [address]- 8854 08 Nov, 2013 [facility] [place] [facility] [address] [id number] [place] [address]- 0839 Sep, 2013 [facility] [place] [facility] [address] [id number] [place] [address]- 4474 Sep, [facility] [place] [facility] [address] [id number] [place] [address]- 9907 Sep, 2013 [facility] [place] [facility] [address] [id number] [place] [address]- 3004 Sep, 2013 [facility] [place] [facility] [address] [id number] [place] [address]- 5203 Sep, [facility] [place] [facility] [address] [id number] [place] [address]- 4607 Sep, 2013 [facility] [place] [facility] [address] [id number] [place] [address]- 5471 Aug, [facility] [place] [facility] [address] [id number] [place] [address]- 5402 Aug, [facility] [place] [facility] [address] [id number] [place] [address]- 0300 Aug, [facility] [place] [facility] [address] [id number] [place] [address]- 8222 Aug, [facility] [place] [facility] [address] [id number] [place] [address]- 3120 Aug, [facility] [place] [facility] [address] [id number] [place] [address]- 1819 Aug, [facility] [place] [facility] [address] [id number] [place] [address]- 7947 Aug, [facility] [place] [facility] [address] [id number] [place] [address]- 8744 Aug, [facility] [place] [facility] [address] [id number] [place] [address]- 4626 Aug, [facility] [place] [facility] [address] [id number] [place] [address]- 7820 Aug, [facility] [place] [facility] [address] [id number] [place] [address]- 4736 Aug, [facility] [address] [id number] [place] [address]- 1074 July, [facility] [place] [facility] [address] [id number] [place] [address] 1977 July, [facility] [place] [facility] [address] [id number] [place] [address]- 9786 Jun, [facility] [address] [id number] [place] [address] 1943 Jun, [facility] [address] [id number] [place] [address]- 6458 Jun, [facility] [place] [address] [id number] [place] [address]- 3685 18 Jun, 2013 [facility] [address] [id number] [place] [address]- 9770 18 Jun, 2013 [facility] [address] [id number] [place] [address]- 8505 18 Jun, 2013 [facility] [address] [id number] [place] [address]- 4387 15 Jun, 2013 [facility] [address] [id number] [place] [address]- 3264 15 Jun, 2013 [facility] [address] [id number] [place] [address]- 6014 Jun, [facility] [address] [id number] [place] [address]- 7487 Jun, [facility] [address] [id number] [place] [address]- 5289 Jun, [facility] [address] [id number] [place] [address]- 8766 Jun, [facility] [address] [id number] [place] [address]- 3886 May, [facility] [address] [id number] [place] [address]- 7225 May, [facility] [address] [id number] [place] [address]- 2122 May, [facility] [address] [id number] [place] [address]- 8003 May, [facility] [address] [id number] [place] [address]- 3348 May, [facility] [address] [id number] [place] [address]- 0855 19 May, 2013 [facility] [address] [id number] [place] [address]- 9568 May, [facility] [address] [id number] [place] [address]- 4544 May, [facility] [address] [id number] [place] [address]- 6837 May, [facility] [address] [id number] [place] [address]- 3153 May, [facility] [address] [id number] [place] [address]- 0216 May, [facility] [address] [id number] [place] [address]- 4796 May, [facility] [address] [id number] [place] [address]- 4733 Apr, [facility] [address] [facility] [id number] [place] [address]- 6743 Apr, [facility] [address] [id number] [place] [address]- 5488 Apr, [facility] [address] [id number] [place] [address]- 1759 Apr, [facility] [address] [facility] [id number] [place] [address]- 0805 Apr, [facility] [address] [facility] [id number] [place] [address]- 1749 Apr, [facility] [address] [facility] [id number] [place] [address]- 3328 Apr, [facility] [address] [id number] [place] [address]- 2237 Apr, [facility] [address] [id number] [place] [address]- 0840 Apr, [facility] [address] [facility] [id number] [place] [address]- 4134 Apr, [facility] [address] [facility] [id number] [place] [address]- 4057 Apr, [facility] [address] [id number] [place] [address]- 9626 Apr, [facility] [address] [id number] [place] [address]- 5996 Apr, 2013 [facility] [address] [id number] [place] [address]- 5516 Apr, [facility] [address] [id number] [place] [address]- 8989 Apr, [facility] [address] [id number] [place] [address]- 0665 Apr, [facility] [address] [id number] [place] [address]- 1315 Apr, [facility] [address] [facility] [id number] [place] [address]- 1514 Jan, [facility] [address] [id number] [place] [address]- 9564 Jan, [facility] [address] [facility] [id number] [place] [address]- 4635 Jan, [facility] [address] [facility] [id number] [place] [address]- 9870 Jan, [facility] [address] [id number] [place] [address]- 3160 Jan, [facility] [address] [id number] [place] [address]- 1976 Jan, [facility] [address] [id number] [place] [address]- 6535 Jan, [facility] [address] [facility] [id number] [place] [address]- 3833 Dec, [facility] [address] [id number] [place] [address]- 2863 Dec, [facility] [address] [id number] [place] [address]- 2170 Dec, [facility] [address] [id number] [place] [address]- 1786 Nov, [facility] [address] [id number] [place] [address]- 8193 Nov, [facility] [address] [id number] [place] [address]- 2027 Nov, [facility] [address] [id number] [place] [address]- 3601 Nov, [facility] [address] [id number] [place] [address]- 4516 Oct, [facility] [address] [id number] [place] [address]- 7500 Oct, [facility] [address] [id number] [place] [address]- 4023 Oct, [facility] [address] [id number] [place] [address]- 9329 Oct, [facility] [address] [id number] [place] [address]- 3714 Oct, [facility] [address] [id number] [place] [address]- 2095 Sep, [facility] [address] [id number] [place] [address]- 8218 Sep, [facility] [address] [id number] [place] [address]- 2383 Sep, [facility] [address] [id number] [place] [address]- 2751 Sep, [facility] [address] [id number] [place] [address]- 3349 Sep, [facility] [address] [id number] [place] [address]- 2546 Sep, [facility] [address] [id number] [place] [address]- 6625 Sep, [facility] [address] [id number] [place] [address]- 5915 Aug, [facility] [address] [id number] [place] [address]- 8792 Aug, [facility] [address] [id number] [place] [address]- 8750 July, [facility] [address] [id number] [place] [address]- 7095 Jun, [facility] [address] [id number] [place] [address]- 5288 Jun, [facility] [address] [id number] [place] [address]- 0131 Jun, [facility] [address] [id number] [place] [address]- 9229 Apr, [facility] [address] [id number] [place] [address]- 2148 Apr, [facility] [facility] [address] [id number] [place] [address]- 6527 Apr, [facility] [address] [id number] [place] [address]- 4288 Mar, [facility] [address] [id number] [place] [address]- 8248 Mar, [facility] [address] [id number] [place] [address]- 7083 Mar, [facility] [address] [id number] [place] [address]- 9252 Mar, [facility] [address] [id number] [place] [address]- 4456 Mar, [facility] [address] [id number] [place] [address]- 0830 14 Feb, 2012 [facility] [address] [id number] [place] [address]- 6067 14 Feb, 2012 [facility] [address] [id number] [place] [address]- 9036 13 Jan, 2012 [facility] [address] [id number] [place] [address]- 8484 13 Jan, 2012 [facility] [address] [id number] [place] [address]- 2747 13 Jan, 2012 [facility] [address] [id number] [place] [address]- 6618 13 Jan, 2012 [facility] [place] [facility] [address] [id number] [place] [address]- 0061 07 Jan, 2012 [facility] [address] [id number] [place] [address]- 9195 Jan, [facility] [address] [id number] [place] [address]- 8306 06 Jan, 2012 [facility] [address] [id number] [place] [address]- 5667 31 Dec, 2011 [facility] [address] [facility] [id number] [place] [address]- 4338 31 Dec, 2011 [facility] [place] [facility] [address] [id number] [place] [address]- 2276 30 Dec, 2011 [facility] [place] [facility] [address] [id number] [place] [address]- 8717 30 Dec, 2011 [facility] [place] [facility] [address] [id number] [place] [address]- 1856 30 Dec, 2011 [facility] [place] [facility] [address] [facility] [id number] [place] [address]- 8686 30 Dec, 2011 [facility] [place] [address] [id number] [place] [address]- 7731 Dec, [facility] [place] [facility] [address] [id number] [place] [address]- 1061 Dec, [facility] [place] [facility] [address] [id number] [place] [address]- 0534 Dec, [facility] [place] [facility] [address] [id number] [place] [address]- 3997 Dec, [facility] [place] [facility] [address] [id number] [place] [address]- 5666 Oct, [facility] [place] [facility] [address] [id number] [place] [address]- 7558 Oct, [facility] [place] [facility] [address] [id number] [place] [address]- 4731 Aug, [facility] [place] [facility] [address] [id number] [place] [address]- 8176 Aug, [facility] [place] [facility] [address] [id number] [place] [address]- 5645 July, [facility] [place] [facility] [address] [id number] [place] [address]- 0475 Jun, [facility] [place] [facility] [address] [id number] [place] [address]- 6572 Jun, [facility] [place] [facility] [address] [id number] [place] [address]- 1498 May, [facility] [place] [facility] [address] [id number], [place] [address]- 1458 Apr, [facility] [place] [facility] [address] [id number] [place] [address]- 5148 Apr, [facility] [place] [facility] [address] [id number], [place] [address]- 1256 Mar, [facility] [place] [facility] [address] [id number] [place] [address]- 9706 Mar, [facility] [place] [facility] [address] [id number] [place] [address]- 7518 19 Feb, 2011 [facility] [address] [id number] [place] [address]- 2446 15 Feb, 2011 [facility] [place] [facility] [address] [id number] [place] [address] 2546 13 Feb, 2011 [facility] [address] [id number] [place] [address]- 8596 13 Feb, 2011 [facility] [place] [facility] [address] [id number] [place] [address] 2549 Jan, [facility] [address] [id number] [place] [address]- 4138 17 Dec, 2010 [facility] [address] [id number] [place] [address]- 9549 08 Feb, 2010 [facility] [address] [id number] [place] [address]- 6527 02 Feb, 2010 [facility] [address] [id number] [place] [address]- 7994 Feb, [facility] [place] [facility] [address] [id number] [place] [address]- 3238 Feb, [facility] [address] [facility] [id number] [place] [address]- 1417 15 Dec, 2009 [facility] [place] [facility] [address] [id number] [place] [address]- 4478 15 Dec, 2009 [facility] [place] [facility] [address] [id number] [place] [address]- 6069 Oct, [facility] [place] [facility] [address] [id number] [place] [address]- 7971 15 Jun, 2009 [facility] [place] [facility] [address] [id number] [place] [address] 254 Feb, [facility] [place] [facility] [address] [id number] [place] [address]- 4503 Feb, [facility] [address] [facility] [id number] [place] [address]- 0991 Feb, [facility] [address] [facility] [id number], [place] [address] Dec, IMMUNIZATIONS No Known Immunizations SOCIAL HISTORY Never Assessed REASON FOR VISIT Lab (walk-in) PLAN OF CARE VITAL SIGNS MEDICATIONS Unknown Medications RESULTS Name Result Date Reference Range INR (IN HOUSE) 2017-04-23 INR 1.7 1.10 - 3.30 PREVIOUS INR 2.3 CURRENT COUMADIN DOSE 6mg qd NEW COUMADIN DOSE Lot # Exp date INR (IN HOUSE) 2017-04-23 INR 1.7 1.10 - 3.30 PREVIOUS INR 2.3 CURRENT COUMADIN DOSE 5 mg qd NEW COUMADIN DOSE Lot # Exp date PROCEDURES Procedure Date Ordered Result Body Site PROTHROMBIN TIME Apr 23, 2017 INSTRUCTIONS MEDICATIONS ADMINISTERED No Known Medications [...]
--- OUTSIDE RECORDS SUMMARY | 2018-08-02 09:14 | XMS REPORT ---
Author Author RUSTY CUMMINGS Organization [facility] Address [address] [place] [address] Care Team Providers Care Degree Clerk Name Role Phone CUMMINGSPEDRO SomersELE Unavailable PROBLEMS Type Condition ICD9-CM Code LRU29-IL Code Onset Dates Condition Status SNOMED Code Problem Hypertriglyceridemia E78.1 Active 642572562 Problem Generalized anxiety disorder F41.1 Active 041220631 Problem senior living (current) use of anticoagulants Z79.01 Active 319526846 Problem Factor V Leiden D68.51 Active 419766404 Problem History of DVT (deep vein thrombosis) Z86.718 Active 290074503 Problem Excessive daytime sleepiness G47.19 Active 154756799718 Problem Gastroesophageal reflux disease, esophagitis presence not specified K21.9 Active 390387479 Problem Pelvic pain R10.2 Active 64881255 Problem 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 Active 963879364 Problem Presence of IVC filter Z95.828 Active 403513716 Problem Peripheral edema R60.9 Active 855351423 ALLERGIES No Known Allergies SOCIAL HISTORY Never Assessed PLAN OF CARE Activity Details Follow Up prn Reason: VITAL SIGNS Height 64 in 2016-05-26 Weight 195.6 lbs 2016-05-26 Temperature 98.2 degrees Fahrenheit 2016-05-26 Heart Rate 88 bpm 2016-05-26 Respiratory Rate 20 2016-05-26 BMI 33.57 kg/m2 2016-05-26 Blood pressure systolic 126 mmHg 2016-05-26 Blood pressure diastolic 90 mmHg 2016-05-26 MEDICATIONS Medication Instructions Dosage Frequency Start Date End Date Duration Status Coumadin 1 MG Orally Once a day 1 tablet 24h 13 Nov, 2015 90 days Active Tylenol 325 MG Orally every 6 hrs 1 tablet as needed 6h Active Coumadin 5 mg Orally Once a day 1 tablet 24h 90 days Active Lexapro 10 MG Orally Once a day 1 tablet 24h 90 days Active Erythromycin 5 MG/GM Ophthalmic 2 times a day apply 1/2 inch ribbon to inner left lid 12h Apr, May, 10 day(s) Active Vistaril 50 mg Orally every 6 hrs 1 capsule as needed 6h 7 Active Hydrochlorothiazide 50 MG TAKE ONE TABLET BY MOUTH DAILY 90 Active Ondansetron 4 MG Orally every 8 hrs PRN 1 tablet on the tongue and allow to dissolve Apr, 05 days Active RESULTS No Results PROCEDURES No Known procedures IMMUNIZATIONS No Known Immunizations MEDICAL (GENERAL) HISTORY Type Description Date Medical History obesity Medical History Hematologic disorder factor clotting problem Medical History DVT's Surgical History Lap Band 10/2012 Surgical History section 1985, 1987 Surgical History cholecystectomy Surgical History [place] Filter 06/2009 Surgical History Left leg exploratory surgery r/t clot 1987 Hospitalization History Ruptured Ovarian Cyst with abd bleeding 11/2009
--- OUTSIDE RECORDS SUMMARY | 2018-08-02 09:14 | XMS REPORT ---
Author Author KIANA ASHLEY [facility] Address [address] [place] [address] Care Team Providers Care Wearing Apparel Assembler Name Role Phone KIANAGILSON VILLEGASHANY Unavailable PROBLEMS Type Condition ICD9-CM Code THP64-RT Code Onset Dates Condition Status SNOMED Code Problem Hypertriglyceridemia E78.1 Active 574522035 Problem Generalized anxiety disorder F41.1 Active 312971718 Problem care home (current) use of anticoagulants Z79.01 Active 434955923 Problem Factor V Leiden D68.51 Active 131945950 Problem History of DVT (deep vein thrombosis) Z86.718 Active 325026338 Problem Excessive daytime sleepiness G47.19 Active 188900335666 Problem Gastroesophageal reflux disease, esophagitis presence not specified K21.9 Active 691167747 Problem Pelvic pain R10.2 Active 88072018 Problem 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 Active 398767469 Problem Presence of IVC filter Z95.828 Active 234808764 Problem Peripheral edema R60.9 Active 443781157 ALLERGIES No Information ENCOUNTERS Encounter Location Date Diagnosis [place] [address] [address] July, [place] [address] 58177- 6862 Jun, History of DVT (deep vein thrombosis) Z86.718 [place] [address] 7[address]01- 0572 Jun, History of DVT (deep vein thrombosis) Z86.718 [place] [address] 66854- 8471 Jun, Impingement syndrome, shoulder, left M75.42 [place] [address] 90670- 4595 May, Subacromial bursitis of left shoulder joint M75.52 [place] [address] [place] [id number] [place] [address] 77984- 4972 May, [place] [address] [place] [id number] [place] [address] 23254- 9724 May, Hypertriglyceridemia E78.1 ; 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 and Excessive daytime sleepiness G47.19 [place] [address] [place] [id number] [place] [address] 39318- 0767 May, History of DVT (deep vein thrombosis) Z86.718 ; Generalized anxiety disorder F41.1 ; Hypertriglyceridemia E78.1 ; 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 ; Subacromial bursitis of left shoulder joint M75.52 and Excessive daytime sleepiness G47.19 [place] [address] [place] [id number] [place] [address] 84154- 8491 May, [place] [address] [place] [id number] [place] [address] 62559- 2544 May, 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 [place] [address] [place] [id number] [place] [address] 28580- 2879 Apr, care home (current) use of anticoagulants Z79.01 [place] [address] [place] [id number] [place] [address] 31770- 0948 Apr, 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 [place] [address] [place] [id number] [place] [address] 62489- 0127 Apr, 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 [place] [address] [place] [id number] [place] [address] 40833- 9826 Apr, [place] [address] [place] [id number] [place] [address] 01316- 8430 Apr, 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 [place] [address] [address] 99[address] 13 Apr, 2017 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 [facility] [id number] [place] [address] 78360 2546 Apr, 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 [facility] [address] [place] [address] 58455 2546 Apr, care home (current) use of anticoagulants Z79.01 [facility] [address] [place] [address] 79934 2546 Apr, 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 [facility] [address] [place] [address] 05235 2546 Apr, care home (current) use of anticoagulants Z79.01 [facility] [address] [place] [address] 78066 2546 Mar, care home (current) use of anticoagulants Z79.01 [facility] [address] [place] [address] 89493 2546 Mar, [facility] [address] [place] [id number] [place] [address] 55998 2546 Mar, care home (current) use of anticoagulants Z79.01 [facility] [address] [place] [address] [phone] Jan, Dental examination Z01.20 [facility] [address] [place] [address] [id number] Jan, [facility] [address] [place] [id number] [place] [address] 60559 2546 Jan, 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 [facility] [address] [address] 2546 17 Jan, 2017 History of DVT (deep vein thrombosis) Z86.718 [place] [address] [place] [address] 89783- 2665 Jan, Generalized anxiety disorder F41.1 and Peripheral edema R60.9 [facility] [address] [place] [id number] [place] [address] 97691- 0051 Nov, History of DVT (deep vein thrombosis) Z86.718 [facility] [address] [place] [id number] [place] [address] 85382- 0659 Nov, care home (current) use of anticoagulants Z79.01 [facility] [address] [place] [address] 82838 -6775 Nov, Acute non-recurrent maxillary sinusitis J01.00 [facility] [address] [place] [id number] [place] [address] 59933- 4300 Oct, care home (current) use of anticoagulants Z79.01 [place] [address] [place] [id number] [place] [address] 38532- 1692 Oct, Personal history of venous thrombosis and embolism Z86.718 [place] [address] [place] [id number] [place] [address] 61231- 9810 Sep, [facility] [address] [place] [id number] [place] [address] 33618- 0809 Sep, Personal history of venous thrombosis and embolism Z86.718 [facility] [address] [place] [id number] [place] [address] 97142- 0546 Sep, care home (current) use of anticoagulants Z79.01 [place] [address] [place] [address] 15327- 6976 Sep, care home (current) use of anticoagulants Z79.01 [facility] [address] [place] [id number] [place] [address] 62025- 2776 Sep, Generalized anxiety disorder F41.1 and History of DVT (deep vein thrombosis) Z86.718 [facility] [address] [place] [id number] [place] [address] 82396- 0101 Aug, History of DVT (deep vein thrombosis) Z86.718 ; Generalized anxiety disorder F41.1 ; 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 ; Pelvic pain R10.2 ; Hypertriglyceridemia E78.1 ; Excessive daytime sleepiness G47.19 ; Colon cancer screening Z12.11 ; Screening for breast cancer Z12.39 ; Peripheral edema R60.9 and Gastroesophageal reflux disease, esophagitis presence not specified K21.9 [place] [address] 27620- 4842 Aug, [place] [address] 94660- 7146 July, [place] [address] 75566- 9695 July, History of DVT (deep vein thrombosis) Z86.718 [place] [address] 34985- 5057 Jun, Generalized anxiety disorder F41.1 [place] [address] [place] [id number] [place] [address] 52571- 7496 Jun, History of DVT (deep vein thrombosis) Z86.718 [place] [address] [place] [id number] [place] [address] 17158- 9745 Jun, History of DVT (deep vein thrombosis) Z86.718 [place] [address] [place] [id number] [place] [address] 96254- 3593 Jun, History of DVT (deep vein thrombosis) Z86.718 [place] [address] [place] [id number] [place] [address] 61898- 1716 Jun, History of DVT (deep vein thrombosis) Z86.718 [place] [address] [place] [id number] [place] [address] 55273- 1115 May, History of DVT (deep vein thrombosis) Z86.718 [place] [address] 83865- 4872 May, 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 [facility] [address] [place] [id number] [place] [address] 53769- 2488 May, 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 [facility] [address] [place] [id number] [place] [address] 34722- 0067 May, History of DVT (deep vein thrombosis) Z86.718 [facility] [address] [place] [id number] [place] [address] 51444 -2641 27 Apr, 2016 Bacterial conjunctivitis of left eye H10.9 and H/O motion sickness Z87.898 [facility] [address] [place] [id number] [place] [address] 82535- 7764 24 Apr, 2016 History of DVT (deep vein thrombosis) Z86.718 [facility] [address] [place] [id number] [place] [address] 09133- 3242 23 Apr, 2016 History of DVT (deep vein thrombosis) Z86.718 [facility] [address] [place] [id number] [place] [address] 48051- 5467 15 Apr, 2016 History of DVT (deep vein thrombosis) Z86.718 [facility] [address] [place] [id number] [place] [address] 14657- 1851 14 Apr, 2016 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 [facility] [address] [place] [id number] [place] [address] 26747- 7430 Mar, [facility] [address] [place] [id number] [place] [address] 81806- 0075 Mar, care home (current) use of anticoagulants Z79.01 [place] [address] [place] [id number] [place] [address] 45332- 9264 Mar, Hypertriglyceridemia E78.1 and care home (current) use of anticoagulants Z79.01 [place] [address] [place] [id number] [place] [address] 86599- 4878 Feb, care home (current) use of anticoagulants Z79.01 [facility] [address] [place] [address] 26883 2546 Feb, care home (current) use of anticoagulants Z79.01 [facility] [address] [place] [address] 81708 2546 Feb, care home (current) use of anticoagulants Z79.01 [place] [address] [place] [id number] [place] [address] 10756 2546 Dec, [place] [address] [place] [id number] [place] [address] 56584- 6996 Nov, [place] [address] [place] [id number] [place] [address] 02231- 8966 Nov, History of DVT (deep vein thrombosis) Z86.718 ; Tremulousness R25.1 ; Generalized anxiety disorder F41.1 ; Peripheral edema R60.9 and Hypertriglyceridemia E78.1 [place] [address] [place] [address] 70399- 6006 Oct, History of DVT (deep vein thrombosis) Z86.718 [place] [address] [place] [address] 72688 2546 Oct, [place] [address] [place] [address] 00088 2546 Sep, History of DVT (deep vein thrombosis) Z86.718 [facility] [address] [address] 2546 Sep, care home (current) use of anticoagulants Z79.01 [place] [address] [place] [address] 58712 2546 July, [place] [address] [address]- 2546 July, 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 [place] [address] [place] [id number] [place] [address] 58456- 5985 July, 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 [place] [address] 26864- 1851 Jun, 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 [facility] [place] [address] 59124 -9700 Jun, Coccyx pain M53.3 ; Encounter for therapeutic drug level monitoring Z51.81 and terminal manager current use 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.01 [place] [address] [place] [id number] [place] [address] 43478- 4039 May, Abnormal mammogram R92.8 [facility] [place] [address] 72754 -9139 May, [facility] [place] [address] 67810 -9230 May, Acute vaginitis N76.0 and Encounter for other screening for malignant neoplasm of breast Z12.39 [place] [address] [place] [id number] [place] [address] 20201- 5405 Apr, [place] [address] [place] [id number] [place] [address] 80115- 5699 Apr, [place] [address] [place] [id number] [place] [address] 31528- 9651 Apr, Peripheral edema R60.9 [place] [address] 05526- 8720 Apr, care home (current) use of anticoagulants Z79.01 [place] [address] [place] [id number] [place] [address] 04731- 7285 Apr, Peripheral edema R60.9 and care home (current) use of anticoagulants Z79.01 [place] [address] [place] [id number] [place] [address] 36235- 6973 Apr, care home (current) use of anticoagulants Z79.01 [place] [address] [place] [address] 00823- 9796 Apr, [place] [address] [place] [id number] [place] [address] 29313- 5665 Apr, care home (current) use of anticoagulants Z79.01 [place] [address] [place] [id number] [place] [address] 88944- 4506 Apr, Peripheral edema R60.9 [place] [address] [place] [id number] [place] [address] 73160- 6334 Mar, 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 [place] [address] [place] [id number] [place] [address] 48070- 6208 Mar, care home (current) use of anticoagulants Z79.01 and Hypertriglyceridemia E78.1 [place] [address] [place] [id number] [place] [address] 92748- 5638 Mar, care home (current) use of anticoagulants Z79.01 [place] [address] [place] [id number] [place] [address] 73557- 1058 Mar, 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 [place] [address] [place] [id number] [place] [address] 96062- 4826 Mar, [place] [address] [place] [id number] [place] [address] 51503- 6299 Mar, care home (current) use of anticoagulants Z79.01 ; Hypertriglyceridemia E78.1 ; Personal history of venous thrombosis and embolism Z86.718 and Lump R22.9 [place] [address] [place] [id number] [place] [address] 52844- 9658 Mar, Personal history of venous thrombosis and embolism Z86.718 [place] [address] [place] [id number] [place] [address] 53084- 4646 Mar, Personal history of venous thrombosis and embolism Z86.718 [facility] [address] [address]- 8301 Mar, [facility] [address] [address]- 6126 Dec, Personal history of venous thrombosis and embolism Z86.718 [facility] [address] [address]- 1476 Dec, Personal history of venous thrombosis and embolism V12.51 [facility] [address] [address] 2541 Nov, Personal history of venous thrombosis and embolism V12.51 [facility] [address] [place] [address] 36116- 2627 Nov, Personal history of venous thrombosis and embolism V12.51 [facility] [address] [place] [address] 10459- 4978 Nov, Personal history of venous thrombosis and embolism V12.51 [facility] [address] [address]- 2819 Nov, Personal history of venous thrombosis and embolism V12.51 [facility] [address] [address]- 6983 Nov, [facility] [address] [address]- 0069 Oct, Dysuria 788.1 [facility] [address] [address]- 7762 Oct, Personal history of venous thrombosis and embolism V12.51 [facility] [address] [address]- 9153 Oct, [facility] [address] [address]- 8171 Oct, Personal history of venous thrombosis and embolism V12.51 [facility] [address] [address]- 5183 Sep, Personal history of venous thrombosis and embolism V12.51 [facility] [address] [address]- 7643 Sep, Personal history of venous thrombosis and embolism V12.51 [facility] [address] [place] [id number] [address]- 3189 Aug, Personal history of venous thrombosis and embolism V12.51 [facility] [address] [address]- 9843 Aug, Personal history of venous thrombosis and embolism V12.51 [facility] [address] 7919 Aug, Personal history of venous thrombosis and embolism V12.51 [facility] [address] [address]- 5471 July, Generalized anxiety disorder 300.02 ; Abdominal pain, left lower quadrant 789.04 and Personal history of venous thrombosis and embolism V12.51 [facility] [address] [address] [address]366 14 Jun, 2014 [facility] [address]- 7099 Jun, [facility] [address] [address] 1158 May, [facility] [address] 0783 27 May, 2014 [facility] [address]- 7143 17 May, 2014 [facility] [address] [address]- 9866 17 May, 2014 [facility] [address] [place] [id number] 5850 13 May, 2014 [facility] [address] [address]- 2877 May, [facility] [place] [facility] [address] [id number] [place] [address]- 4000 May, [facility] [place] [facility] [address] [id number] [place] [address]- 4550 May, [facility] [place] [facility] [address] [id number] [place] [address]- 6571 Apr, [facility] [place] [facility] [address] [id number] [place] [address]- 3741 Apr, [facility] [place] [facility] [address] [id number] [place] [address]- 0075 Apr, [facility] [place] [facility] [address] [id number] [place] [address]- 9070 Apr, [facility] [place] [facility] [address] [id number] [place] [address]- 4102 Apr, [facility] [place] [facility] [address] [id number] [place] [address]- 1468 Mar, [facility] [place] [facility] [address] [id number] [place] [address]- 5223 Mar, [facility] [place] [facility] [address] [id number] [place] [address]- 6762 Mar, [facility] [place] [facility] [address] [id number] [place] [address]- 7629 Mar, [facility] [place] [facility] [address] [id number] [place] [address]- 8417 Mar, [facility] [place] [facility] [address] [id number] [place] [address]- 0601 Mar, [facility] [place] [facility] [address] [id number] [place] [address]- 6632 Feb, [facility] [place] [facility] [address] [id number] [place] [address]- 6041 Feb, [facility] [place] [facility] [address] [id number] [place] 9346 Feb, [facility] [place] [facility] [address] [id number] [place] 8887 Feb, [facility] [place] [facility] [address] [id number] [place] [address]- 4977 Feb, [facility] [place] [facility] [address] [id number] [place] [address]- 7750 Feb, [facility] [place] [facility] [address] [id number] [place] [address]- 1497 Feb, [facility] [place] [facility] [address] [id number] [place] [address]- 3741 Feb, [facility] [place] [facility] [address] [id number] [place] 5630 Feb, [facility] [place] [facility] [address] [id number] [place] [address]- 0274 Feb, [facility] [place] [facility] [address] [id number] [place] [address]- 4362 Jan, [facility] [place] [facility] [address] [id number] [place] [address]- 5918 Jan, [facility] [place] [facility] [address] [id number] [place] [address]- 9987 Jan, [facility] [place] [facility] [address] [id number] [place] [address]- 7854 Jan, [facility] [place] [facility] [address] [id number] [place] [address]- 6938 Jan, [facility] [place] [facility] [address] [id number] [place] [address]- 5708 Jan, [facility] [place] [facility] [address] [id number] [place] 8242 Jan, [facility] [place] [facility] [address] [id number] [address]- 3566 Jan, [facility] [place] [facility] [address] [id number] [place] [address]- 4501 Jan, [facility] [place] [facility] [address] [id number] [place] [address]- 5635 Jan, [facility] [place] [facility] [address] [id number] [place] [address] Dec, [facility] [place] [facility] [address] [id number] [place] [address] Dec, [facility] [place] [facility] [address] [id number] [place] [address] Dec, [facility] [place] [facility] [address] [id number] [place] [address] Dec, [facility] [place] [facility] [address] [id number] [place] [address] Dec, [facility] [place] [facility] [address] [id number] [place] [address] Dec, [facility] [place] [facility] [address] [id number] [place] [address] Dec, [facility] [place] [facility] [address] [id number] [place] [address] Dec, [facility] [place] [facility] [address] [id number], [place] [address] Dec, [facility] [place] [facility] [address] [id number], [place] [address] Dec, [facility] [place] [facility] [address] [id number] [place] [address] Dec, [facility] [place] [facility] [address] [id number], [place] [address] Dec, [facility] [place] [facility] [address] [id number] [place] [address] Dec, [facility] [place] [facility] [address] [id number] [place] [address] Dec, [facility] [place] [facility] [address] [id number] [place] [address] Dec, [facility] [place] [facility] [address] [id number] [place] [address] 30 Nov, 2013 [facility] [place] [facility] [address] [id number] [place] [address] 30 Nov, 2013 [facility] [place] [facility] [address] [id number] [place] [address] 26 Nov, 2013 [facility] [place] [facility] [address] [id number] [place] [address] 26 Nov, 2013 [facility] [place] [facility] [address] [id number] [place] [address] 24 Nov, 2013 [facility] [place] [facility] [address] [id number] [place] [address] 24 Nov, 2013 [facility] [place] [facility] [address] [id number] [place] [address] 23 Nov, 2013 [facility] [place] [facility] [address] [id number] [place] [address] 23 Nov, 2013 [facility] [place] [facility] [address] [id number] [place] [address] 18 Nov, 2013 [facility] [place] [facility] [address] [id number] [place] [address] 18 Nov, 2013 [facility] [place] [facility] [address] [id number] [place] [address] 17 Nov, 2013 [facility] [place] [facility] [address] [id number] [place] [address] 17 Nov, 2013 [facility] [place] [facility] [address] [id number] [place] [address] 11 Nov, 2013 [facility] [place] [facility] [address] [address] [id number] [place] [address] 11 Nov, 2013 [facility] [place] [facility] [address] [id number] [place] [address] 10 Nov, 2013 [facility] [place] [facility] [address] [id number] [place] [address] 49[address] 10 Nov, 2013 [facility] [place] [facility] [address] [id number] [place] [address] 08 Nov, 2013 [facility] [place] [facility] [address] [id number] [place] [address] 08 Nov, 2013 [facility] [place] [facility] [address] [id number] [place] [address] 8130 Sep, [facility] [place] [facility] [address] [id number] [place] [address]243 Sep, [facility] [place] [facility] [address] [id number] [place] [address] 6001 Sep, [facility] [place] [facility] [address] [id number] [place] [address] 3378 Sep, [facility] [place] [facility] [address] [id number] [place] [address]- 0984 Sep, [facility] [place] [facility] [address] [id number] [place] [address] 0843 Sep, [facility] [place] [facility] [address] [id number] [place] [address] 9459 Aug, [facility] [place] [facility] [address] [id number] [place] [address]- 7774 Aug, [facility] [place] [facility] [address] [id number] [place] [address]- 4708 Aug, [facility] [place] [facility] [address] [id number] [place] [address]- 6237 Aug, [facility] [place] [facility] [address] [id number] [place] [address] 5308 Aug, [facility] [place] [facility] [address] [id number] [place] [address]- 0557 Aug, [facility] [place] [facility] [address] [id number] [place] [address]- 3734 Aug, [facility] [place] [facility] [address] [id number] [place] [address]- 9063 Aug, [facility] [place] [facility] [address] [id number] [place] [address]- 3887 Aug, [facility] [place] [facility] [address] [id number] [place] [address]- 8843 Aug, [facility] [place] [facility] [address] [id number] [place] [address]- 7228 Aug, [facility] [place] [facility] [address] [id number] [place] [address]- 7281 July, [facility] [place] [facility] [address] [id number] [place] [address]- 3516 July, [facility] [place] [facility] [address] [id number] [place] [address]- 3495 Jun, [facility] [place] [facility] [address] [id number] [place] [address]- 2648 Jun, [facility] [place] [facility] [address] [id number] [place] [address]- 2841 Jun, [facility] [place] [facility] [address] [id number] [place] [address]- 1065 Jun, [facility] [place] [facility] [address] [id number] [place] [address]- 6711 Jun, [facility] [place] [facility] [address] [id number] [place] [address]- 2999 Jun, [facility] [place] [facility] [address] [id number] [place] [address]- 2425 15 Jun, 2013 [facility] [place] [facility] [address] [id number] [place] [address]- 8738 Jun, [facility] [place] [facility] [address] [id number] [place] [address]- 8463 Jun, [facility] [place] [facility] [address] [id number] [place] [address]- 2776 Jun, [facility] [place] [facility] [address] [id number] [place] [address]- 7516 Jun, [facility] [place] [facility] [address] [id number] [place] [address]- 2186 Jun, [facility] [place] [facility] [address] [id number] [place] [address]- 5766 May, [facility] [place] [facility] [address] [id number] [place] [address]- 0308 May, [facility] [place] [facility] [address] [id number] [place] [address]- 8104 May, [facility] [place] [facility] [address] [id number] [place] [address]- 7197 May, [facility] [place] [facility] [address] [id number] [place] [address]- 8199 May, [facility] [place] [facility] [address] [id number] [place] [address]- 6309 May, [facility] [place] [facility] [address] [id number] [place] [address]- 4627 May, [facility] [place] [facility] [address] [id number] [place] [address]- 1506 May, [facility] [place] [facility] [address] [id number] [place] [address]- 5755 May, [facility] [place] [facility] [address] [id number] [place] [address]- 7482 May, [facility] [place] [facility] [address] [id number] [place] [address]- 2880 May, [facility] [place] [facility] [address] [id number] [place] [address]- 4740 May, [facility] [place] [facility] [address] [id number] [place] [address]- 3826 Apr, [facility] [place] [facility] [address] [facility] [id number] [place] [address]- 8906 Apr, [facility] [place] [facility] [address] [facility] [id number] [place] [address]- 7116 Apr, [facility] [place] [facility] [address] [facility] [id number] [place] [address]- 9009 Apr, [facility] [place] [facility] [address] [facility] [id number] [place] [address]- 1126 Apr, [facility] [place] [facility] [address] [facility] [id number] [place] [address]- 1746 Apr, [facility] [place] [facility] [address] [facility] [id number] [place] [address]- 0586 Apr, [facility] [place] [facility] [address] [facility] [id number] [place] [address]- 0854 Apr, [facility] [place] [facility] [address] [facility] [id number] [place] [address]- 5375 Apr, [facility] [place] [facility] [address] [facility] [id number] [place] [address]- 1980 Apr, [facility] [place] [facility] [address] [facility] [id number] [place] [address]- 2626 Apr, [facility] [place] [facility] [address] [facility] [id number] [place] [address]- 254 Apr, [facility] [place] [facility] [address] [facility] [id number] [place] [address]- 6166 Apr, [facility] [place] [facility] [address] [facility] [id number] [place] [address]- 2544 Apr, [facility] [place] [facility] [address] [facility] [id number] [place] [address]- 0403 Apr, [facility] [place] [facility] [address] [id number] [place] [address]- 5426 Apr, [facility] [place] [facility] [address] [id number] [place] [address]- 0689 Apr, [facility] [place] [facility] [address] [facility] [id number] [place] [address]- 0779 Jan, [facility] [place] [facility] [address] [id number] [place] [address]- 4015 Jan, [facility] [place] [facility] [address] [id number] [place] [address]- 9842 Jan, [facility] [place] [facility] [address] [id number] [place] [address]- 6244 Jan, [facility] [place] [facility] [address] [facility] [id number] [place] [address]- 0923 Jan, [facility] [place] [facility] [address] [id number] [address]- 8290 Jan, [facility] [place] [facility] [address] [id number] [place] [address]- 0792 Jan, [facility] [place] [facility] [address] [facility] [id number][place] [address]- 9088 Dec, [facility] [place] [facility] [address] [id number], [place] [address]- 2942 Dec, [facility] [place] [facility] [address] [id number], [place] [address]- 9634 Dec, [facility] [place] [facility] [address] [id number], [place] [address]- 8151 Nov, [facility] [place] [facility] [address] [id number] [address]- 9145 10 Nov, 2012 [facility] [place] [facility] [address] [facility] [id number] [address]- 5082 05 Nov, 2012 [facility] [place] [facility] [address] [id number] [place] [address]- 2006 Nov, [facility] [address] [id number] [place] [address]- 6084 Oct, [facility] [place] [facility] [address] [id number] [place] [address]- 9594 Oct, [facility] [place] [facility] [address] [id number] [place] [address]- 6817 Oct, [facility] [place] [facility] [address] [id number] [place] [address]- 6992 Oct, [facility] [place] [facility] [address] [id number] [place] [address]- 3471 Oct, [facility] [place] [facility] [address] [id number] [place] [address]- 7201 Sep, [facility] [address] [id number] [place] [address]- 5151 Sep, [facility] [place] [facility] [address] [id number] [place] [address]- 1092 Sep, [facility] [place] [facility] [address] [id number] [place] [address]- 6165 Sep, [facility] [place] [facility] [address] [id number] [place] [address]- 1834 Sep, [facility] [place] [facility] [address] [id number] [place] [address]- 3417 Sep, [facility] [place] [facility] [address] [id number] [place] [address]- 4911 Sep, [facility] [place] [facility] [address] [id number] [place] [address]- 0801 Aug, [facility] [place] [facility] [address] [id number] [place] [address]- 1820 Aug, [facility] [place] [facility] [address] [id number] [place] [address]- 7401 July, [facility] [place] [facility] [address] [id number] [place] [address]- 5166 Jun, [facility] [address] [id number] [place] [address]- 1954 Jun, [facility] [place] [facility] [address] [id number] [place] [address]- 2127 Jun, [facility] [place] [facility] [address] [id number] [place] [address]- 5217 Apr, [facility] [address] [id number] [place] [address]- 5651 Apr, [facility] [place] [facility] [address] [id number] [place] [address]- 8516 Apr, [facility] [address] [id number] [place] [address]- 9764 Mar, [facility] [address] [id number] [place] [address]- 5232 Mar, [facility] [address] [id number] [place] [address]- 1303 Mar, [facility] [address] [id number] [place] [address]- 2002 Mar, [facility] [address] [id number] [place] [address]- 7655 Mar, [facility] [place] [facility] [address] [id number] [place] [address]- 0865 14 Feb, 2012 [facility] [place] [facility] [address] [id number] [place] [address]- 1652 Feb, [facility] [place] [facility] [address] [id number] [place] [address]- 9998 Jan, [facility] [place] [facility] [address] [id number] [place] [address]- 4467 13 Jan, 2012 [facility] [place] [facility] [address] [id number], [place] [address]- 5077 Jan, [facility] [place] [facility] [address] [id number] [place] [address]- 0961 13 Jan, 2012 [facility] [place] [facility] [address] [id number] [place] [address]90 Jan, [facility] [place] [facility] [address] [facility] [id number] [place] [address]- 1278 Jan, [facility] [place] [facility] [address] [id number] [place] [address]- 3947 Jan, [facility] [place] [facility] [address] [id number] [place] [address]- 1381 Dec, [facility] [place] [facility] [address] [id number] [place] [address]- 4527 Dec, [facility] [place] [facility] [address] [facility] [id number], [place] [address]- 6556 Dec, [facility] [place] [facility] [address] [id number] [place] [address]- 3231 Dec, [facility] [place] [facility] [address] [id number] [place] [address]- 2630 Dec, [facility] [place] [facility] [address] [facility] [id number] [place] [address]- 2768 Dec, [facility] [place] [facility] [address] [id number], [place] [address]- 7774 Dec, [facility] [place] [facility] [address] [facility] [id number], [place] [address]- 9608 Dec, [facility] [place] [facility] [address] [id number], [place] [address]- 6428 Dec, [facility] [place] [facility] [address] [facility] [id number] [place] [address]- 1818 Dec, [facility] [place] [facility] [address] [facility] [id number] [place] [address]- 9631 Oct, [facility] [place] [facility] [address] [id number] [place] [address]- 5057 14 Oct, 2011 [facility] [address] [id number] [place] [address]- 0197 14 Aug, 2011 [facility] [place] [facility] [address] [id number] [place] [address]- 4986 14 Aug, 2011 [facility] [place] [facility] [address] [id number] [place] [address]- 7156 July, [facility] [place] [facility] [address] [id number] [place] [address]- 5809 Jun, [facility] [place] [facility] [address] [id number] [place] [address]- 9326 Jun, [facility] [place] [facility] [address] [id number] [place] [address]- 6756 May, [facility] [place] [facility] [address] [id number] [place] [address]- 8362 Apr, [facility] [place] [facility] [address] [id number] [place] [address] 1446 Apr, [facility] [place] [facility] [address] [id number] [place] [address]- 5076 Mar, [facility] [place] [facility] [address] [id number] [place] [address]- 8704 16 Mar, 2011 [facility] [place] [facility] [address] [id number] [place] [address]- 8835 [address], [address] [facility] [place] [facility] [address] [id number] [place] [address]- 6903 15 Feb, 2011 [facility] [place] [facility] [address] [id number] [place] [address]- 3154 [address], [address] [facility] [place] [facility] [address] [id number] [place] [address]- 2596 13 Feb, 2011 [facility] [place] [facility] [address] [id number] [place] [address]- 6245 Jan, [facility] [address] [id number] [address]- 4754 Dec, [facility] [id number] [place] [address] 3799[address]- 0594 Feb, [facility] [id number] [address]- 2222 Feb, [facility] [id number] [place] [address] 76[address]- 8420 Feb, [facility] [id number] [place] [address] 164173- 4963 Feb, [facility] [id number] [place] [address] 591648- 9755 Dec, [facility] [address] [address]- 0821 Dec, [facility] [id number] [place] [address]47- 7198 Oct, [facility] [address] [address]- 0482 Jun, [facility] [address] [address]- 7995 Feb, [facility] [address] [address]- 9999 Feb, [facility] [address], [place] [address]- 5647 Feb, [facility] [address] [id number], [place] [address]- 2513 Dec, IMMUNIZATIONS No Known Immunizations SOCIAL HISTORY Never Assessed REASON FOR VISIT Lab (walk-in) PLAN OF CARE VITAL SIGNS MEDICATIONS Unknown Medications RESULTS Name Result Date Reference Range INR (IN HOUSE) 2016-12-22 INR 2.5 1.10 - 3.30 PREVIOUS INR 1.9 CURRENT COUMADIN DOSE 5 mg qd NEW COUMADIN DOSE Lot # [id number] Exp date 04/2017 PROCEDURES Procedure Date Ordered Result Body Site PROTHROMBIN TIME Dec 22, 2016 INSTRUCTIONS MEDICATIONS ADMINISTERED No Known Medications [...]
--- OUTSIDE RECORDS SUMMARY | 2018-08-02 09:14 | XMS REPORT ---
Author Author ASHLEY BRUNO [facility] Address [address] [place] [address] Care Team Providers Care Magnetic Grinder Operator Name Role Phone ASHLEY BRUNO Unavailable PROBLEMS Type Condition ICD9-CM Code CBD65-TL Code Onset Dates Condition Status SNOMED Code Problem [facility] (current) use of anticoagulants Z79.01 Active 765855891 Problem Peripheral edema R60.9 Active 865580661 Problem History of DVT (deep vein thrombosis) Z86.718 Active 916331738 Problem Generalized anxiety disorder F41.1 Active 012883254 Problem 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 Active 941744038 Problem Presence of IVC filter Z95.828 Active 699265390 Problem Hypertriglyceridemia E78.1 Active 040175342 Problem Pelvic pain R10.2 Active 25563369 ALLERGIES Unknown Allergies SOCIAL HISTORY No smoking Hx information available PLAN OF CARE VITAL SIGNS MEDICATIONS Unknown Medications RESULTS No Results PROCEDURES Procedure Date Ordered Related Diagnosis Body Site PROTHROMBIN TIME Mar 04, 2016 IMMUNIZATIONS No Known Immunizations
--- OUTSIDE RECORDS SUMMARY | 2018-08-02 09:14 | XMS REPORT ---
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 Active 426384733 Problem Factor V Leiden D68.51 Active 507734167 Problem History of DVT (deep vein thrombosis) Z86.718 Active 869744624 Problem Excessive daytime sleepiness G47.19 Active 882055826461 Problem Gastroesophageal reflux disease, esophagitis presence not specified K21.9 Active 564587571 Problem Pelvic pain R10.2 Active 96448855 Problem 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 Active 118680588 Problem Presence of IVC filter Z95.828 Active 201079949 Problem Peripheral edema R60.9 Active 247141407 ALLERGIES No Information SOCIAL HISTORY Never Assessed PLAN OF CARE VITAL SIGNS MEDICATIONS Unknown Medications RESULTS Name Result Date Reference Range INR (IN HOUSE) INR 2.4 1.10 - 3.30 PREVIOUS INR 2.4 CURRENT COUMADIN DOSE 4 mg po NEW COUMADIN DOSE Lot # [id number] Exp date 03/2017 PROCEDURES Procedure Date Ordered Result Body Site PROTHROMBIN TIME July 30, 2016 IMMUNIZATIONS No Known Immunizations MEDICAL (GENERAL) [...]
--- OUTSIDE RECORDS SUMMARY | 2018-08-02 09:15 | XMS REPORT ---
Author Author ASHLEY BRUNO Organization [employer] Address Unknown Phone Unavailable Care Team Providers Care Mechanical Adjuster Name Role Phone ASHLEY BRUNO CP Unavailable [...] Coding System Code Date PROTHROMBIN TIME CPT-4 13941 Apr 05, 2015 Results Name Result Date Reference Range Unit Abnormality Flag INR (IN HOUSE) ----Exp date [id number] ----INR 1.2 20150405 1.10 - 3.30 ----PREVIOUS INR 2.5 [id number] ----CURRENT COUMADIN DOSE 5mg qd [id number] ----Lot # [id number] Summary Purpose [employer] Submission
--- OUTSIDE RECORDS SUMMARY | 2018-08-02 09:15 | XMS REPORT ---
Author Author KIANA ASHLEY [facility] Address [address] [place] [address] Care Team Providers Care Behavioral Health Associate Name Role Phone GILSON BRUNOHANY Unavailable PROBLEMS Type Condition ICD9-CM Code ACG08-MZ Code Onset Dates Condition Status SNOMED Code Problem Hypertriglyceridemia E78.1 Active 095949487 Problem Generalized anxiety disorder F41.1 Active 927998352 Problem [facility] (current) use of anticoagulants Z79.01 Active 645164888 Problem Factor V Leiden D68.51 Active 022003312 Problem History of DVT (deep vein thrombosis) Z86.718 Active 103949060 Problem Excessive daytime sleepiness G47.19 Active 725411004112 Problem Gastroesophageal reflux disease, esophagitis presence not specified K21.9 Active 462716317 Problem Pelvic pain R10.2 Active 94408125 Problem 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 Active 423459167 Problem Presence of IVC filter Z95.828 Active 848071869 Problem Peripheral edema R60.9 Active 536308950 ALLERGIES No Information ENCOUNTERS Encounter Location Date Diagnosis [place] [address] [address] Jun, [place] [address] 19893- 9305 May, Subacromial bursitis of left shoulder joint M75.52 [place] [address] 63400- 1838 May, [place] [address] 01299- 7995 May, Hypertriglyceridemia E78.1 ; [facility] (current) use of anticoagulants Z79.01 and Excessive daytime sleepiness G47.19 [place] [address] 7[address]- 4367 May, History of DVT (deep vein thrombosis) Z86.718 ; Generalized anxiety disorder F41.1 ; Hypertriglyceridemia E78.1 ; 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 Z79.01 ; Subacromial bursitis of left shoulder joint M75.52 and Excessive daytime sleepiness G47.19 [place] [address] [place] [id number] [place] [address] 69115 2546 May, [place] [address] 58959 2546 May, 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 Z79.01 [place] [address] 48039 2546 23 Apr, 2017 [facility] (current) use of anticoagulants Z79.01 [place] [address] [place] [id number] [place] [address] 59289 2546 Apr, 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 Z79.01 [place] [address] [place] [id number] [place] [address] 76799 2546 Apr, 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 Z79.01 [place] [address] [place] [id number] [place] [address] 78450 2546 16 Apr, 2017 [place] [address] [place] [id number] [place] [address] 89762 2546 16 Apr, 2017 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 Z79.01 [place] [address] [place] [id number] [place] [address] 64577 2546 13 Apr, 2017 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 Z79.01 [place] [address] [place] [id number] [place] [address] 38989 2546 Apr, 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 Z79.01 [place] [address] [place] [id number] [place] [address] 06488 2546 Apr, [facility] (current) use of anticoagulants Z79.01 [facility] [id number] [place] [address] 46205- 1931 07 Apr, 2017 [facility] (current) use of anticoagulants Z79.01 [facility] [address] [place] [id number] [place] [address] 39173 2546 Apr, 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 Z79.01 [place] [address] [place] [id number] [place] [address] 03996- 5086 Mar, 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 Z79.01 [place] [address] [place] [id number] [place] [address] 53718- 8176 Mar, [place] [address] 36025- 6056 Mar, 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 Z79.01 [facility] [address] [id number] Jan, Dental examination Z01.20 [facility] [address] [id number] Jan, [place] [address] 60782- 4459 Jan, [facility] (current) use of anticoagulants Z79.01 [place] [address] [place] [id number] [place] [address] 78088- 0689 17 Jan, 2017 History of DVT (deep vein thrombosis) Z86.718 [place] [address] [place] [id number] [place] [address] 32941- 7393 07 Jan, 2017 Generalized anxiety disorder F41.1 and Peripheral edema R60.9 [place] [address] 99774- 2880 Nov, History of DVT (deep vein thrombosis) Z86.718 [place] [address] [place] [id number] [place] [address] 97623- 2826 Nov, 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 Z79.01 [facility] [address] [address] Nov, Acute non-recurrent maxillary sinusitis J01.00 [facility] [address] [place] [id number] [place] [address] 84349- 8501 Oct, [facility] (current) use of anticoagulants Z79.01 [facility] [address] [place] [id number] [place] [address] 35128- 8382 Oct, Personal history of venous thrombosis and embolism Z86.718 [place] [address] [place] [id number] [place] [address] 71860- 4735 Sep, [place] [address] [place] [id number] [place] [address] 88144- 5968 Sep, Personal history of venous thrombosis and embolism Z86.718 [place] [address] [place] [id number] [place] [address] 21760- 4266 Sep, [facility] (current) use of anticoagulants Z79.01 [place] [address] [place] [id number] [place] [address] 03601- 7428 Sep, [facility] (current) use of anticoagulants Z79.01 [place] [address] [place] [id number] [place] [address] 03400- 8582 Sep, Generalized anxiety disorder F41.1 and History of DVT (deep vein thrombosis) Z86.718 [place] [address] [place] [id number] [place] [address] 65069- 5332 Aug, History of DVT (deep vein thrombosis) Z86.718 ; Generalized anxiety disorder F41.1 ; [facility] (current) use of anticoagulants Z79.01 ; Pelvic pain R10.2 ; Hypertriglyceridemia E78.1 ; Excessive daytime sleepiness G47.19 ; Colon cancer screening Z12.11 ; Screening for breast cancer Z12.39 ; Peripheral edema R60.9 and Gastroesophageal reflux disease, esophagitis presence not specified K21.9 [facility] [address] [place] [id number] [place] [address] 48648- 0806 Aug, [facility] [address] [address]- 3882 July, [facility] [address] [place] [id number] [place] [address] 85786- 0861 July, History of DVT (deep vein thrombosis) Z86.718 [facility] [address] [place] [id number] [place] [address] 86628- 9533 Jun, Generalized anxiety disorder F41.1 [facility] [address] [place] [id number] [place] [address] 59793- 1913 Jun, History of DVT (deep vein thrombosis) Z86.718 [place] [address] [place] [id number] [place] [address] 30876- 2889 Jun, History of DVT (deep vein thrombosis) Z86.718 [place] [address] [place] [id number] [place] [address] 56702- 4521 Jun, History of DVT (deep vein thrombosis) Z86.718 [place] [address] [place] [address] 07819- 9847 Jun, History of DVT (deep vein thrombosis) Z86.718 [place] [address] [place] [id number] [place] [address] 94936- 1533 May, History of DVT (deep vein thrombosis) Z86.718 [place] [address] [place] [id number] [place] [address] 33696- 4025 May, [facility] (current) use of anticoagulants Z79.01 [place] [address] [place] [address] 44302- 4651 May, [facility] (current) use of anticoagulants Z79.01 [place] [address] [place] [address] 21819- 3581 May, History of DVT (deep vein thrombosis) Z86.718 [facility] [address] [place] [address] 28045 -3139 27 Apr, 2016 Bacterial conjunctivitis of left eye H10.9 and H/O motion sickness Z87.898 [place] [address] 59567- 0106 24 Apr, 2016 History of DVT (deep vein thrombosis) Z86.718 [place] [address] [place] [id number] [place] [address] 99256- 2846 23 Apr, 2016 History of DVT (deep vein thrombosis) Z86.718 [place] [address] 42300- 5281 15 Apr, 2016 History of DVT (deep vein thrombosis) Z86.718 [place] [address] 87916- 9434 14 Apr, 2016 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 Z79.01 [place] [address] 16853- 8878 Mar, [place] [address] 73004- 4138 Mar, 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 Z79.01 [place] [address] 30095- 5100 Mar, Hypertriglyceridemia E78.1 and 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 Z79.01 [place] [address] [place] [id number] [place] [address] 01009- 5503 Feb, 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 Z79.01 [place] [address] [place] [id number] [place] [address] 30960 2546 Feb, [facility] (current) use of anticoagulants Z79.01 [place] [address] 94797- 9137 Feb, 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 Z79.01 [place] [address] 27418- 7766 Dec, [facility] [address] [place] [id number] [place] [address] 42868- 0282 Nov, [place] [address] 38689- 6143 Nov, History of DVT (deep vein thrombosis) Z86.718 ; Tremulousness R25.1 ; Generalized anxiety disorder F41.1 ; Peripheral edema R60.9 and Hypertriglyceridemia E78.1 [place] [address] 25599- 6305 Oct, History of DVT (deep vein thrombosis) Z86.718 [place] [address] 85572- 4325 Oct, [place] [address] 37679- 0672 Sep, History of DVT (deep vein thrombosis) Z86.718 [place] [address] [place] [id number] [place] [address] 59190- 0235 Sep, [facility] (current) use of anticoagulants Z79.01 [place] [address] [place] [id number] [place] [address] 64268- 8387 July, [place] [address] 21388- 2679 July, 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 Z79.01 [place] [address] [place] [id number] [place] [address] 05592- 9531 July, 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 Z79.01 [place] [address] [place] [id number] [place] [address] 35879- 9667 Jun, 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 Z79.01 [facility] [address] [place] [id number] [place] [address] 86504 -4026 Jun, Coccyx pain M53.3 ; Encounter for therapeutic drug level monitoring Z51.81 and 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 current use 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.01 [facility] [address] [place] [id number] [place] [address] 36157- 1724 May, Abnormal mammogram R92.8 [facility] [address] [place] [id number] [place] [address] 82498 -0161 May, [facility] [address] [place] [id number] [place] [address] 27361 -5957 May, Acute vaginitis N76.0 and Encounter for other screening for malignant neoplasm of breast Z12.39 [place] [address] [place] [id number] [place] [address] 97078- 5691 Apr, [place] [address] 06857- 4613 Apr, [place] [address] [place] [id number] [place] [address] 16331- 3970 Apr, Peripheral edema R60.9 [place] [address] [place] [id number] [place] [address] 77898- 4135 Apr, [facility] (current) use of anticoagulants Z79.01 [place] [address] [place] [id number] [place] [address] 37606- 5542 Apr, Peripheral edema R60.9 and 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 Z79.01 [place] [address] [place] [address] [place] [address] 74947- 2537 Apr, 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 Z79.01 [place] [address] [place] [id number] [place] [address] 42370- 2546 Apr, [place] [address] [place] [id number] [place] [address] 66718- 2546 Apr, 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 Z79.01 [place] [address] [place] [id number] [place] [address] 23506- 2546 Apr, Peripheral edema R60.9 [place] [address] [place] [address] 86285- 6347 Mar, [facility] (current) use of anticoagulants Z79.01 [place] [address] [place] [id number] [place] [address] 63439- 9345 Mar, [facility] (current) use of anticoagulants Z79.01 and Hypertriglyceridemia E78.1 [place] [address] 75991- 2117 Mar, 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 Z79.01 [place] [address] [place] [id number] [place] [address] 47621- 2295 Mar, [facility] (current) use of anticoagulants Z79.01 [place] [address] [place] [id number] [place] [address] 19744- 3100 Mar, [place] [address] [place] [id number] [place] [address] 11863- 0156 Mar, 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 Z79.01 ; Hypertriglyceridemia E78.1 ; Personal history of venous thrombosis and embolism Z86.718 and Lump R22.9 [place] [address] [place] [address] [place] [address] 99348- 8445 Mar, Personal history of venous thrombosis and embolism Z86.718 [place] [address] [place] [id number] [place] [address] 11211- 8763 Mar, Personal history of venous thrombosis and embolism Z86.718 [place] [address] [place] [id number] [place] [address] 16551- 5803 Mar, [place] [address] [place] [id number] [place] [address] 13736- 0907 Dec, Personal history of venous thrombosis and embolism Z86.718 [place] [address] [place] [id number] [place] [address] 44864- 8475 Dec, Personal history of venous thrombosis and embolism V12.51 [place] [address] [address]- 5833 28 Nov, 2014 Personal history of venous thrombosis and embolism V12.51 [facility] [address] [facility] [id number] 9486 Nov, Personal history of venous thrombosis and embolism V12.51 [facility] [address] [facility] [id number], [place] [address]- 7376 17 Nov, 2014 Personal history of venous thrombosis and embolism V12.51 [facility] [address] [facility] [id number], [place] [address]- 5827 Nov, Personal history of venous thrombosis and embolism V12.51 [facility] [address] [facility] [id number] [address]- 0885 Nov, [facility] [address], [place] [address]- 7971 Oct, Dysuria 788.1 [facility] [address] [place] [id number] [address]- 5352 Oct, Personal history of venous thrombosis and embolism V12.51 [facility] [address], [place] [address]- 4741 Oct, [facility] [address], [place] [address]- 5925 Oct, Personal history of venous thrombosis and embolism V12.51 [facility] [address] [facility] [id number][place] [address]- 5999 Sep, Personal history of venous thrombosis and embolism V12.51 [facility] [address] [facility] [id number], [place] [address]- 0421 Sep, Personal history of venous thrombosis and embolism V12.51 [facility] [address] [facility] [id number][place]- 6055 Aug, Personal history of venous thrombosis and embolism V12.51 [facility] [address], [place] [address]- 0206 Aug, Personal history of venous thrombosis and embolism V12.51 [facility] [address] [facility] [id number][place]- 2474 15 Aug, 2014 Personal history of venous thrombosis and embolism V12.51 [facility] [address] [facility] [id number], [place] [address]- 1915 July, Generalized anxiety disorder 300.02 ; Abdominal pain, left lower quadrant 789.04 and Personal history of venous thrombosis and embolism V12.51 [facility] [address] [facility] [id number], [place] [address]- 6304 Jun, [facility] [address] [facility] [id number] [place] [address] 32991- 5701 Jun, [facility] [address]- 3094 May, [facility] [address], [place] [address]- 7225 May, [facility] [address], [place] [address]- 1493 May, [facility] [address] [address]- 2010 May, [facility] [address], [place] [address]- 2950 May, [facility] [address] [place] [id number] 0414 May, [facility] [address] [place] [id number] 6331 May, [facility] [address], [place] [address]- 9158 May, [facility] [address] [place] [id number] [address]- 7956 Apr, [facility] [address], [place] [address]- 8555 Apr, [facility] [address] [id number] [place] [address]- 2421 Apr, [facility] [place] [facility] [address] [id number] [place] [address]- 2836 Apr, [facility] [place] [facility] [address] [id number] [place] [address]- 1306 Apr, [facility] [place] [facility] [address] [id number] [place] [address]- 5484 Mar, [facility] [place] [facility] [address] [id number] [place] [address]- 2965 Mar, [facility] [place] [facility] [address] [id number] [place] [address]- 1729 Mar, [facility] [address] [id number] [place] [address]- 4571 Mar, [facility] [address] [id number] [place] [address]- 7674 Mar, [facility] [address] [id number] [place] [address]- 6560 Mar, [facility] [address] [facility] [id number] [place] [address]- 2714 Feb, [facility] [place] [facility] [address] [id number] [place] [address]- 0963 Feb, [facility] [place] [facility] [address] [id number] [place] [address]- 2103 Feb, [facility] [place] [facility] [address] [id number] [place] 4921 Feb, [facility] [place] [facility] [address] [id number] [place] [address]256 Feb, [facility] [place] [facility] [address] [facility] [id number] [place] [address]- 7586 Feb, [facility] [place] [facility] [address] [id number] [place] 0430 Feb, [facility] [place] [facility] [address] [id number] [place] 5393 Feb, [facility] [place] [facility] [address] [id number] [place] 3945 Feb, [facility] [place] [facility] [address] [id number] [place] [address]- 5955 Feb, [facility] [place] [facility] [address] [id number] [place] [address]- 6141 Jan, [facility] [place] [facility] [address] [id number] [place] [address]- 7579 Jan, [facility] [place] [facility] [address] [id number] [place] [address]- 0209 Jan, [facility] [place] [facility] [address] [id number] [place] [address]- 3128 Jan, [facility] [place] [facility] [address] [id number] [place] [address]- 9082 Jan, [facility] [place] [facility] [address] [id number] [place] [address]- 0229 Jan, [facility] [place] [facility] [address] [id number] [place] [address]- 5902 Jan, [facility] [place] [facility] [address] [id number] [place] [address]- 0625 Jan, [facility] [place] [facility] [address] [id number] [place] [address]- 1987 Jan, [facility] [place] [facility] [address] [id number] [place] [address]- 0420 Jan, [facility] [place] [facility] [address] [id number] [place] [address]- 6218 Dec, [facility] [place] [facility] [address] [id number] [place] [address]- 3788 Dec, [facility] [place] [facility] [address] [id number] [place] [address]- 5601 Dec, [facility] [place] [facility] [address] [id number] [place] [address]- 9350 Dec, [facility] [place] [facility] [address] [id number] [place] [address]- 5651 Dec, [facility] [place] [facility] [address] [id number] [place] [address]- 7377 Dec, [facility] [place] [facility] [address] [id number] [place] [address]- 0783 Dec, [facility] [place] [facility] [address] [id number] [place] [address]- 0031 Dec, [facility] [place] [facility] [address] [id number] [place] [address] Dec, [facility] [place] [facility] [address] [id number], [place] [address] Dec, [facility] [place] [facility] [address] [id number] [place] [address] Dec, [facility] [place] [facility] [address] [id number], [place] [address] Dec, [facility] [place] [facility] [address] [id number], [place] [address] Dec, [facility] [place] [facility] [address] [id number], [place] [address] Dec, [facility] [place] [facility] [address] [id number] [place] [address] Dec, [facility] [place] [facility] [address] [id number], [place] [address] Nov, [facility] [place] [facility] [address] [id number], [place] [address] Nov, [facility] [place] [facility] [address] [id number] [place] [address] 26 Sep, 2013 [facility] [place] [facility] [address] [id number] [place] [address] 26 Sep, 2013 [facility] [place] [facility] [address] [id number] [place] [address] 24 Sep, 2013 [facility] [place] [facility] [address] [id number] [place] [address] 24 Sep, 2013 [facility] [place] [facility] [address] [id number] [place] [address] 23 Sep, 2013 [facility] [place] [facility] [address] [id number] [place] [address] 23 Sep, 2013 [facility] [place] [facility] [address] [id number] [place] [address] 18 Sep, 2013 [facility] [place] [facility] [address] [id number] [place] [address] 18 Nov, 2013 [facility] [place] [facility] [address] [id number] [place] [address] 17 Sep, 2013 [facility] [place] [facility] [address] [id number] [place] [address] 17 Sep, 2013 [facility] [place] [facility] [address] [id number] [place] [address]44 11 Nov, 2013 [facility] [place] [facility] [address] [id number] [place] [address]46 11 Sep, 2013 [facility] [place] [facility] [address] [id number] [place] [address] 10 Sep, 2013 [facility] [place] [facility] [address] [id number] [place] [address] 2546 10 Sep, 2013 [facility] [place] [facility] [address] [id number] [place] [address] 08 Sep, 2013 [facility] [place] [facility] [address] [id number] [place] [address] Nov, [facility] [place] [facility] [address] [id number] [place] [address] Sep, [facility] [place] [facility] [address] [id number] [place] [address] Sep, [facility] [place] [facility] [address] [id number] [place] [address] Sep, [facility] [place] [facility] [address] [id number] [place] [address] Sep, [facility] [place] [facility] [address] [address] [id number] [place] [address] Sep, [facility] [place] [facility] [address] [id number] [place] [address] Sep, [facility] [place] [facility] [address] [id number] [place] [address] 9079 Aug, [facility] [place] [facility] [address] [id number] [place] [address] Aug, [facility] [place] [facility] [address] [id number] [place] [address] 2658 Aug, [facility] [place] [facility] [address] [id number] [place] [address] 0940 Aug, [facility] [place] [facility] [address] [id number] [place] [address] 6731 Aug, [facility] [place] [facility] [address] [id number] [place] [address] 0663 Aug, [facility] [place] [facility] [address] [id number] [place] [address] 3251 Aug, [facility] [place] [facility] [address] [id number] [place] [address] 1518 Aug, [facility] [place] [facility] [address] [id number] [place] [address] 7344 Aug, [facility] [place] [facility] [address] [id number] [place] [address] 2870 Aug, [facility] [place] [facility] [address] [id number] [place] [address] 3076 Aug, [facility] [place] [facility] [address] [id number] [place] [address] 4394 July, [facility] [place] [facility] [address] [id number] [place] [address] 2008 July, [facility] [place] [facility] [address] [id number] [place] [address] 9517 Jun, [facility] [place] [facility] [address] [id number] [place] [address] 5[address] Jun, [facility] [place] [facility] [address] [id number] [place] [address] 4064 Jun, [facility] [place] [facility] [address] [id number] [place] [address]- 3067 Jun, [facility] [place] [facility] [address] [id number] [place] [address] 5421 Jun, [facility] [place] [facility] [address] [id number] [place] [address]- 0558 Jun, [facility] [place] [facility] [address] [id number] [place] [address]- 6364 Jun, [facility] [place] [facility] [address] [id number] [place] [address]- 5138 Jun, [facility] [place] [facility] [address] [id number] [place] [address] 1176 Jun, [facility] [place] [facility] [address] [id number] [place] [address]- 9496 Jun, [facility] [place] [facility] [address] [id number] [place] [address]- 7741 Jun, [facility] [place] [facility] [address] [id number] [place] [address]- 8012 Jun, [facility] [place] [facility] [address] [id number] [place] [address]- 2272 May, [facility] [place] [facility] [address] [id number] [place] [address]- 8536 May, [facility] [place] [facility] [address] [id number] [place] [address] 1816 May, [facility] [place] [facility] [address] [id number] [place] [address]- 3576 May, [facility] [place] [facility] [address] [id number] [place] [address]- 2073 May, [facility] [place] [facility] [address] [id number] [place] [address]- 6636 May, [facility] [place] [facility] [address] [id number] [place] [address]- 5311 May, [facility] [place] [facility] [address] [id number] [place] [address]- 4367 May, [facility] [place] [facility] [address] [id number] [place] [address] 2094 May, [facility] [place] [facility] [address] [id number] [place] [address] May, [facility] [place] [facility] [address] [id number] [place] [address] 4305 May, [facility] [place] [facility] [address] [id number] [place] [address]- 6136 May, [facility] [place] [facility] [address] [id number] [place] [address]- 2791 Apr, [facility] [place] [facility] [address] [id number] [place] [address] 7840 Apr, [facility] [place] [facility] [address] [id number] [place] [address]- 9190 Apr, [facility] [place] [facility] [address] [id number] [place] [address]- 2927 Apr, [facility] [place] [facility] [address] [id number] [place] [address]- 0806 Apr, [facility] [place] [facility] [address] [id number] [place] [address]- 8916 Apr, [facility] [place] [facility] [address] [facility] [id number] [place] [address]- 5206 Apr, [facility] [place] [facility] [address] [id number] [place] [address]- 7513 Apr, [facility] [place] [facility] [address] [id number] [place] [address]- 7918 Apr, [facility] [place] [facility] [address] [facility] [id number] [place] [address]- 3228 Apr, [facility] [place] [facility] [address] [facility] [id number] [place] [address]- 3189 Apr, [facility] [place] [facility] [address] [facility] [id number] [place] [address]- 4484 Apr, [facility] [place] [facility] [address] [facility] [id number] [place] [address]- 1144 Apr, [facility] [place] [facility] [address] [facility] [id number] [place] [address]- 9620 Apr, [facility] [place] [facility] [address] [facility] [id number] [place] [address]- 3683 Apr, [facility] [place] [facility] [address] [facility] [id number] [place] [address]- 5347 Apr, [facility] [place] [facility] [address] [facility] [id number] [place] [address]- 8348 Apr, [facility] [place] [facility] [address] [facility] [id number] [place] [address]- 9164 Jan, [facility] [place] [facility] [address] [facility] [id number] [place] [address]- 2202 Jan, [facility] [place] [facility] [address] [id number] [place] [address]- 9986 08 Jan, 2013 [facility] [place] [facility] [address] [id number] [place] [address] 2992 Jan, [facility] [place] [facility] [address] [id number] [place] [address]- 6941 Jan, [facility] [place] [facility] [address] [id number] [place] [address]- 8684 Jan, [facility] [place] [facility] [address] [id number] [place] [address]- 3935 Jan, [facility] [place] [facility] [address] [id number] [place] [address]- 8082 Dec, [facility] [place] [facility] [address] [id number] [place] [address]- 0391 Dec, [facility] [place] [facility] [address] [id number] [place] [address]- 1607 Dec, [facility] [place] [facility] [address] [id number] [place] [address]- 2063 Nov, [facility] [place] [facility] [address] [id number] [place] [address]- 3342 Nov, [facility] [place] [facility] [address] [id number] [place] [address]- 8903 05 Nov, 2012 [facility] [place] [facility] [address] [id number] [address] 1031 Nov, [facility] [place] [facility] [address] [id number] [place] [address]- 2567 Oct, [facility] [place] [facility] [address] [id number] [place] [address]- 7914 Oct, [facility] [place] [facility] [address] [id number], [place] [address]- 5382 Oct, [facility] [place] [facility] [address] [id number], [place] [address] 3830 Oct, [facility] [address] [id number] [place] [address]- 7756 Oct, [facility] [place] [facility] [address] [id number] [place] [address]- 1855 Sep, [facility] [place] [facility] [address] [id number] [place] [address]- 0528 Sep, [facility] [place] [facility] [address] [id number] [place] [address]- 2117 Sep, [facility] [place] [facility] [address] [id number] [place] [address]- 7194 Sep, [facility] [place] [facility] [address] [id number] [place] [address]- 8730 Sep, [facility] [address] [id number] [place] [address]- 8960 Sep, [facility] [place] [facility] [address] [id number] [place] [address]- 0946 Sep, [facility] [place] [facility] [address] [id number] [place] [address]- 5471 Aug, [facility] [place] [facility] [address] [id number] [place] [address]- 4637 Aug, [facility] [place] [facility] [address] [id number] [place] [address]- 9511 July, [facility] [place] [facility] [address] [id number] [place] [address]- 6388 Jun, [facility] [place] [facility] [address] [id number] [place] [address]- 3014 Jun, [facility] [place] [facility] [address] [id number] [place] [address]- 9582 Jun, [facility] [place] [facility] [address] [id number] [place] [address]- 7417 Apr, [facility] [place] [facility] [address] [id number] [place] [address]- 0512 Apr, [facility] [address] [id number] [place] [address]- 5640 Apr, [facility] [place] [facility] [address] [id number] [place] [address]- 1654 Mar, [facility] [place] [facility] [address] [id number] [place] [address]- 0604 Mar, [facility] [place] [facility] [address] [id number] [place] [address]- 7290 2012 [facility] [place] [facility] [address] [id number] [place] [address]- 1743 Mar, [facility] [place] [facility] [address] [id number] [place] [address]- 6127 Mar, [facility] [address] [id number] [place] [address]- 9392 14 Feb, 2012 [facility] [address] [id number] [place] [address]- 6532 14 Feb, 2012 [facility] [place] [facility] [address] [id number] [place] [address]- 9488 13 Jan, 2012 [facility] [place] [facility] [address] [id number] [place] [address]- 5815 13 Jan, [address] [facility] [place] [facility] [address] [id number] [place] [address]- 4577 13 Jan, 2012 [facility] [place] [facility] [address] [id number] [place] [address]- 3385 13 Jan, 2012 [facility] [place] [facility] [address] [id number] [place] [address]- 0026 07 Jan, 2012 [facility] [place] [facility] [address] [id number] [place] [address]- 9763 07 Jan, 2012 [facility] [place] [facility] [address] [id number] [place] [address]- 9385 Jan, [facility] [place] [facility] [address] [id number] [place] [address]- 2288 Dec, [facility] [place] [facility] [address] [id number] [place] [address]- 3636 Dec, [facility] [place] [facility] [address] [facility] [id number] [place] [address]- 5498 Dec, [facility] [place] [facility] [address] [id number] [place] [address]- 4919 Dec, [facility] [place] [facility] [address] [id number] [place] [address]- 8186 Dec, [facility] [place] [facility] [address] [id number] [place] [address]- 8759 Dec, [facility] [place] [facility] [address] [id number] [place] [address]- 4041 Dec, [facility] [place] [facility] [address] [id number], [place] [address]- 4808 Dec, [facility] [place] [facility] [address] [id number] [place] [address]- 3106 Dec, [facility] [place] [facility] [address] [id number], [place] [address]- 2715 Dec, [facility] [place] [facility] [address] [id number], [place] [address]- 7267 Oct, [facility] [place] [facility] [address] [id number], [place] [address]- 8467 Oct, [facility] [place] [facility] [address] [id number] [place] [address]- 8269 Aug, [facility] [place] [facility] [address] [id number], [place] [address]- 4713 Aug, [facility] [place] [facility] [address] [facility] [id number], [place] [address] 2546 July, [facility] [place] [facility] [address] [id number] [place] [address] 2544 17 Jun, 2011 [facility] [address] [id number] [place] [address]- 3655 Jun, [facility] [address] [id number] [place] [address]- 9866 May, [facility] [address] [id number] [place] [address]- 1076 Apr, [facility] [address] [id number] [place] [address]- 2546 Apr, [facility] [address] [id number] [place] [address]- 1816 Mar, [facility] [address] [id number] [place] [address]- 8306 Mar, [facility] [address] [id number] [place] [address]- 3883 Feb, [facility] [address] [id number] [place] [address]- 0036 15 Feb, 2011 [facility] [address] [facility] [id number] [place] [address]- 4788 Feb, [facility] [address] [facility] [id number] [place] [address]192 13 Feb, 2011 [facility] [address] [id number] [place] [address]- 2497 Jan, [facility] [address] [id number] [place] [address]- 254 17 Dec, 2010 [facility] [address] [id number] [place] [address]- 2936 08 Feb, 2010 [facility] [place] [facility] [address] [id number] [place] [address]- 2546 Feb, [facility] [address] [id number] [place] [address]- 6347 Feb, [facility] [address] [id number], [place] [address]- 5696 Feb, [facility] [address] [facility] [id number], [place] [address]- 0856 Dec, [facility] [address] [facility] [id number], [place] [address]- 2606 Dec, [facility] [address] [facility] [id number], [place] [address]- 1756 Oct, [facility] [address] [facility] [id number], [place] [address]- 4690 Jun, [facility] [id number], [place] [address]- 4516 Feb, [facility] [id number], [place] [address]- 7846 Feb, [facility] [address] [id number], [place] [address]- 1026 Feb, [facility] [address] [id number], [place] [address]- 5333 Dec, IMMUNIZATIONS No Known Immunizations SOCIAL HISTORY Never Assessed REASON FOR VISIT medication refills PLAN OF CARE VITAL SIGNS MEDICATIONS Medication Instructions Dosage Frequency Start Date End Date Duration Status Coumadin 4 MG Orally Once a day along with 1mg tablet 1 tablet Jun, 90 days Active Vistaril 50 mg Orally every 6 hrs 1 capsule as needed 6h 90 days Active Coumadin 1 MG Orally Once a day along with 4 mg tablet 1 tablet Aug, 90 days Active RESULTS No Results PROCEDURES No Known procedures INSTRUCTIONS MEDICATIONS ADMINISTERED No Known Medications MEDICAL (GENERAL) HISTORY Type Description Date Medical History obesity Medical History Hematologic disorder factor clotting problem Medical History DVT's Surgical History Lap Band 10/2012 Surgical History section 1985, 1987 Surgical History cholecystectomy Surgical History [place] Filter 06/2009 Surgical History Left leg exploratory surgery r/t clot 1987 Hospitalization History Ruptured Ovarian Cyst with abd bleeding 11/2009
--- OUTSIDE RECORDS SUMMARY | 2018-08-02 09:16 | XMS REPORT ---
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 Active 341580878 Problem Factor V Leiden D68.51 Active 674048029 Problem History of DVT (deep vein thrombosis) Z86.718 Active 325349852 Problem Excessive daytime sleepiness G47.19 Active 073425245830 Problem Gastroesophageal reflux disease, esophagitis presence not specified K21.9 Active 491512667 Problem Pelvic pain R10.2 Active 13032240 Problem 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 Active 971197759 Problem Presence of IVC filter Z95.828 Active 336048610 Problem Peripheral edema R60.9 Active 030680546 ALLERGIES Unknown Allergies SOCIAL HISTORY No smoking Hx information available PLAN OF CARE VITAL SIGNS MEDICATIONS Unknown Medications RESULTS No Results PROCEDURES No Known procedures IMMUNIZATIONS No Known Immunizations
--- OUTSIDE RECORDS SUMMARY | 2018-08-02 09:16 | XMS REPORT ---
Author Author KIANA ASHLEY [facility] Address [address] [place] [address] Care Team Providers Care Outside Sales Account Executive Name Role Phone KIANAGILSON VILLEGASHANY Unavailable PROBLEMS Type Condition ICD9-CM Code [id number] Code Onset Dates Condition Status SNOMED Code Problem Hypertriglyceridemia E78.1 Active 523425926 Problem Generalized anxiety disorder F41.1 Active 330037860 Problem custodial (current) use of anticoagulants Z79.01 Active 939724852 Problem Factor V Leiden D68.51 Active 477098620 Problem History of DVT (deep vein thrombosis) Z86.718 Active 390901614 Problem Excessive daytime sleepiness G47.19 Active 785303455607 Problem Gastroesophageal reflux disease, esophagitis presence not specified K21.9 Active 052046904 Problem Pelvic pain R10.2 Active 30553406 Problem 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 Active 087793866 Problem Presence of IVC filter Z95.828 Active 273076722 Problem Peripheral edema R60.9 Active 271021614 ALLERGIES No Information ENCOUNTERS Encounter Location Date Diagnosis [place] [address] [address]- 0642 July, [place] [address] 95838- 2342 Jun, History of DVT (deep vein thrombosis) Z86.718 [place] [address] 69233- 2334 Jun, History of DVT (deep vein thrombosis) Z86.718 [place] [address] [place] [id number] [place] [address] 73307- 0624 Jun, Impingement syndrome, shoulder, left M75.42 [place] [address] 16882- 0421 May, Subacromial bursitis of left shoulder joint M75.52 [place] [address] [place] [id number] [place] [address] 25768- 2607 May, [place] [address] [place] [id number] [place] [address] 45253- 1940 May, Hypertriglyceridemia E78.1 ; 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 and Excessive daytime sleepiness G47.19 [place] [address] [place] [id number] [place] [address] 04574- 0582 May, History of DVT (deep vein thrombosis) Z86.718 ; Generalized anxiety disorder F41.1 ; Hypertriglyceridemia E78.1 ; 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 ; Subacromial bursitis of left shoulder joint M75.52 and Excessive daytime sleepiness G47.19 [place] [address] [place] [id number] [place] [address] 54545- 5582 May, [place] [address] [place] [id number] [place] [address] 36379- 2548 May, 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 [place] [address] [place] [id number] [place] [address] 38139- 7466 Apr, custodial (current) use of anticoagulants Z79.01 [place] [address] [place] [id number] [place] [address] 68248- 7953 Apr, 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 [place] [address] [place] [id number] [place] [address] 53554- 7054 Apr, 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 [place] [address] [place] [id number] [place] [address] 31277- 4256 Apr, [place] [address] [place] [id number] [place] [address] 29594- 5533 Apr, 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 [place] [address] [address] 5526 13 Apr, 2017 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 [facility] [id number] [place] [address] 50723 2546 Apr, 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 [facility] [id number] [place] [address] 88847 2546 Apr, custodial (current) use of anticoagulants Z79.01 [facility] [id number] [place] [address] 66895 2546 Apr, 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 [facility] [id number] [place] [address] 89291 2546 Apr, custodial (current) use of anticoagulants Z79.01 [facility] [id number] [place] [address] 80974 2546 Mar, custodial (current) use of anticoagulants Z79.01 [facility] [id number] [place] [address] 34604 2546 Mar, [facility] [address] [place] [id number] [place] [address] 24883 2546 Mar, custodial (current) use of anticoagulants Z79.01 [facility] [id number] [place] [address] [id number] Jan, Dental examination Z01.20 [facility] [id number] [place] [address] [id number] Jan, [facility] [address] [place] [id number] [place] [address] 84264 2546 Jan, 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01 [facility] [id number] [place] [address] 05345 -3130 Nov, Acute non-recurrent maxillary sinusitis J01.00 [facility] [address] [place] [id number] [place] [address] 05110- 6610 Oct, custodial (current) use of anticoagulants Z79.01 [place] [address] [place] [id number] [place] [address] 53825- 6088 Oct, Personal history of venous thrombosis and embolism Z86.718 [place] [address] [place] [id number] [place] [address] 41745- 3319 Sep, [facility] [address] [place] [id number] [place] [address] 81262- 2861 Sep, Personal history of venous thrombosis and embolism Z86.718 [facility] [address] [place] [id number] [place] [address] 05110- 8938 Sep, custodial (current) use of anticoagulants Z79.01 [place] [id number] [place] [address] 99622- 1025 Sep, custodial (current) use of anticoagulants Z79.01 [facility] [address] [place] [id number] [place] [address] 38275- 3144 Sep, Generalized anxiety disorder F41.1 and History of DVT (deep vein thrombosis) Z86.718 [facility] [address] [place] [id number] [place] [address] 79151- 6877 Aug, History of DVT (deep vein thrombosis) Z86.718 ; Generalized anxiety disorder F41.1 ; 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 ; Pelvic pain R10.2 ; Hypertriglyceridemia E78.1 ; Excessive daytime sleepiness G47.19 ; Colon cancer screening Z12.11 ; Screening for breast cancer Z12.39 ; Peripheral edema R60.9 and Gastroesophageal reflux disease, esophagitis presence not specified K21.9 [place] [address] 08890- 3781 Aug, [place] [address] 39718- 9080 July, [place] [address] 42605- 2621 July, History of DVT (deep vein thrombosis) Z86.718 [place] [address] 68632- 7912 Jun, Generalized anxiety disorder F41.1 [place] [address] [place] [id number] [place] [address] 93245- 5355 Jun, History of DVT (deep vein thrombosis) Z86.718 [place] [address] [place] [id number] [place] [address] 32710- 8757 Jun, History of DVT (deep vein thrombosis) Z86.718 [place] [address] [place] [id number] [place] [address] 18934- 3611 Jun, History of DVT (deep vein thrombosis) Z86.718 [place] [address] [place] [id number] [place] [address] 43168- 4704 Jun, History of DVT (deep vein thrombosis) Z86.718 [place] [address] [place] [id number] [place] [address] 43111- 8127 May, History of DVT (deep vein thrombosis) Z86.718 [place] [address] 33390- 1434 May, 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 [facility] [address] [place] [id number] [place] [address] 60879- 1608 May, 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 [facility] [address] [place] [id number] [place] [address] 88676- 1483 May, History of DVT (deep vein thrombosis) Z86.718 [facility] [address] [place] [id number] [place] [address] 23711 -6761 27 Apr, 2016 Bacterial conjunctivitis of left eye H10.9 and H/O motion sickness Z87.898 [facility] [address] [place] [id number] [place] [address] 09278- 7803 24 Apr, 2016 History of DVT (deep vein thrombosis) Z86.718 [facility] [address] [place] [id number] [place] [address] 75935- 3463 23 Apr, 2016 History of DVT (deep vein thrombosis) Z86.718 [facility] [address] [place] [id number] [place] [address] 01821- 3916 15 Apr, 2016 History of DVT (deep vein thrombosis) Z86.718 [facility] [address] [place] [id number] [place] [address] 69165- 9567 14 Apr, 2016 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 [facility] [address] [place] [id number] [place] [address] 10947- 7673 Mar, [facility] [address] [place] [id number] [place] [address] 62810- 9903 Mar, custodial (current) use of anticoagulants Z79.01 [place] [address] [place] [id number] [place] [address] 77069- 9135 Mar, Hypertriglyceridemia E78.1 and custodial (current) use of anticoagulants Z79.01 [place] [address] [place] [id number] [place] [address] 75435- 0616 Feb, custodial (current) use of anticoagulants Z79.01 [facility] [id number] [place] [address] 76250 2546 Feb, custodial (current) use of anticoagulants Z79.01 [facility] [id number] [place] [address] 21294 2546 Feb, custodial (current) use of anticoagulants Z79.01 [place] [address] [place] [id number] [place] [address] 64296 2546 Dec, [place] [address] [place] [id number] [place] [address] 78516- 2296 Nov, [place] [address] [place] [id number] [place] [address] 98111- 5496 Nov, History of DVT (deep vein thrombosis) Z86.718 ; Tremulousness R25.1 ; Generalized anxiety disorder F41.1 ; Peripheral edema R60.9 and Hypertriglyceridemia E78.1 [place] [id number] [place] [address] 95664- 0626 Oct, History of DVT (deep vein thrombosis) Z86.718 [place] [id number] [place] [address] 44880 2546 Oct, [place] [id number] [place] [address] 34604 2546 Sep, History of DVT (deep vein thrombosis) Z86.718 [facility] [address] [address] 2546 Sep, custodial (current) use of anticoagulants Z79.01 [place] [id number] [place] [address] 22154 2546 July, [place] [address] [address]- 2546 July, 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 [place] [address] [place] [id number] [place] [address] 05033- 3075 July, 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 [place] [address] 89972- 9846 Jun, 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 [facility] [place] [address] 25469 -2152 Jun, Coccyx pain M53.3 ; Encounter for therapeutic drug level monitoring Z51.81 and equipment operator intermodal yard current use 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.01 [place] [address] [place] [id number] [place] [address] 63492- 6348 May, Abnormal mammogram R92.8 [facility] [place] [address] 69343 -3024 May, [facility] [place] [address] 01012 -3638 May, Acute vaginitis N76.0 and Encounter for other screening for malignant neoplasm of breast Z12.39 [place] [address] [place] [id number] [place] [address] 60200- 4009 Apr, [place] [address] [place] [id number] [place] [address] 69163- 7764 Apr, [place] [address] [place] [id number] [place] [address] 54771- 0302 Apr, Peripheral edema R60.9 [place] [address] 31569- 5393 Apr, custodial (current) use of anticoagulants Z79.01 [place] [address] [place] [id number] [place] [address] 11729- 8865 Apr, Peripheral edema R60.9 and custodial (current) use of anticoagulants Z79.01 [place] [address] [place] [id number] [place] [address] 37722- 9408 Apr, custodial (current) use of anticoagulants Z79.01 [place] [id number] [place] [address] 60412- 2577 Apr, [place] [address] [place] [id number] [place] [address] 43233- 1007 Apr, custodial (current) use of anticoagulants Z79.01 [place] [address] [place] [id number] [place] [address] 84625- 3776 Apr, Peripheral edema R60.9 [place] [address] [place] [id number] [place] [address] 43945- 9296 Mar, 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 [place] [address] [place] [id number] [place] [address] 78370- 1465 Mar, custodial (current) use of anticoagulants Z79.01 and Hypertriglyceridemia E78.1 [place] [address] [place] [id number] [place] [address] 17715- 8552 Mar, custodial (current) use of anticoagulants Z79.01 [place] [address] [place] [id number] [place] [address] 51715- 1279 Mar, 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 [place] [address] [place] [id number] [place] [address] 22058- 2462 Mar, [place] [address] [place] [id number] [place] [address] 70371- 2592 Mar, custodial (current) use of anticoagulants Z79.01 ; Hypertriglyceridemia E78.1 ; Personal history of venous thrombosis and embolism Z86.718 and Lump R22.9 [place] [address] [place] [id number] [place] [address] 87825- 7576 Mar, Personal history of venous thrombosis and embolism Z86.718 [place] [address] [place] [id number] [place] [address] 10577- 0433 Mar, Personal history of venous thrombosis and embolism Z86.718 [facility] [address] [address]- 8305 Mar, [facility] [address] [address]- 6306 Dec, Personal history of venous thrombosis and embolism Z86.718 [facility] [address] [address]- 3556 Dec, Personal history of venous thrombosis and embolism V12.51 [facility] [address] [address] 2548 Nov, Personal history of venous thrombosis and embolism V12.51 [facility] [id number] [place] [address] 28548- 7005 Nov, Personal history of venous thrombosis and embolism V12.51 [facility] [id number] [place] [address] 78550- 6142 Nov, Personal history of venous thrombosis and embolism V12.51 [facility] [address] [address]- 7678 Nov, Personal history of venous thrombosis and embolism V12.51 [facility] [address] [address]- 4123 Nov, [facility] [address] [address]- 0668 Oct, Dysuria 788.1 [facility] [address] [address]- 2285 Oct, Personal history of venous thrombosis and embolism V12.51 [facility] [address] [address]- 6861 Oct, [facility] [address] [address]- 1132 Oct, Personal history of venous thrombosis and embolism V12.51 [facility] [address] [address]- 1760 Sep, Personal history of venous thrombosis and embolism V12.51 [facility] [address] [address]- 8261 Sep, Personal history of venous thrombosis and embolism V12.51 [facility] [address] [place] [id number] [address]- 9638 Aug, Personal history of venous thrombosis and embolism V12.51 [facility] [address] [address]- 6399 Aug, Personal history of venous thrombosis and embolism V12.51 [facility] [address] 3271 Aug, Personal history of venous thrombosis and embolism V12.51 [facility] [address], [place] [address]- 8679 July, Generalized anxiety disorder 300.02 ; Abdominal pain, left lower quadrant 789.04 and Personal history of venous thrombosis and embolism V12.51 [facility] [address] [address]- 6936 14 Jun, 2014 [facility] [address] 2270 Jun, [facility] [address]- 6692 May, [facility] [address]- 9993 27 May, 2014 [facility] [address] 8828 17 May, 2014 [facility] [address] [address]- 5736 17 May, 2014 [facility] [address] [place] [id number] 9293 13 May, 2014 [facility] [address] [place] [address]- 5611 May, [facility] [place] [facility] [address] [id number] [place] [address]- 0202 May, [facility] [place] [facility] [address] [id number] [place] [address]- 4001 May, [facility] [place] [facility] [address] [id number] [place] [address]- 7116 Apr, [facility] [place] [facility] [address] [id number] [place] [address]- 0635 Apr, [facility] [place] [facility] [address] [id number] [place] [address]- 6480 Apr, [facility] [place] [facility] [address] [id number] [place] [address]- 4834 Apr, [facility] [place] [facility] [address] [id number] [place] [address]- 2960 Apr, [facility] [place] [facility] [address] [id number] [place] [address]- 4080 Mar, [facility] [place] [facility] [address] [id number] [place] [address]- 7037 Mar, [facility] [place] [facility] [address] [id number] [place] [address]- 4418 Mar, [facility] [place] [facility] [address] [id number] [place] [address]- 6701 Mar, [facility] [place] [facility] [address] [id number] [place] [address]- 0209 Mar, [facility] [place] [facility] [address] [id number] [place] [address]- 8891 Mar, [facility] [place] [facility] [address] [id number] [place] [address]- 3193 Feb, [facility] [place] [facility] [address] [id number] [place] [address]- 4109 Feb, [facility] [place] [facility] [address] [id number] [place] 6142 Feb, [facility] [place] [facility] [address] [id number] [place] 2903 Feb, [facility] [place] [facility] [address] [id number] [place] [address]- 8388 Feb, [facility] [place] [facility] [address] [id number] [place] [address]- 4298 Feb, [facility] [place] [facility] [address] [id number] [place] [address]- 2827 Feb, [facility] [place] [facility] [address] [id number] [place] [address]- 8919 Feb, [facility] [place] [facility] [address] [id number] [place] 0181 Feb, [facility] [place] [facility] [address] [id number] [place] [address]- 8119 Feb, [facility] [place] [facility] [address] [id number] [place] [address]- 4607 Jan, [facility] [place] [facility] [address] [id number] [place] [address]- 9860 Jan, [facility] [place] [facility] [address] [id number] [place] [address]- 3188 Jan, [facility] [place] [facility] [address] [id number] [place] [address]- 0852 Jan, [facility] [place] [facility] [address] [id number] [place] [address]- 6126 Jan, [facility] [place] [facility] [address] [id number] [place] [address]- 7654 Jan, [facility] [place] [facility] [address] [id number] [place] 1824 Jan, [facility] [place] [facility] [address] [id number] [address]- 3616 Jan, [facility] [place] [facility] [address] [id number] [place] [address] Jan, [facility] [place] [facility] [address] [id number] [place] [address] Jan, [facility] [place] [facility] [address] [id number] [place] [address] Dec, [facility] [place] [facility] [address] [id number] [place] [address] Dec, [facility] [place] [facility] [address] [id number] [place] [address] Dec, [facility] [place] [facility] [address] [id number] [place] [address] Dec, [facility] [place] [facility] [address] [id number] [place] [address] Dec, [facility] [place] [facility] [address] [id number] [place] [address] Dec, [facility] [place] [facility] [address] [id number] [place] [address] Dec, [facility] [place] [facility] [address] [id number] [place] [address] Dec, [facility] [place] [facility] [address] [id number], [place] [address] Dec, [facility] [place] [facility] [address] [id number], [place] [address] Dec, [facility] [place] [facility] [address] [id number] [place] [address] Dec, [facility] [place] [facility] [address] [id number], [place] [address] Dec, [facility] [place] [facility] [address] [id number] [place] [address] Dec, [facility] [place] [facility] [address] [id number] [place] [address]- [address] Dec, [facility] [place] [facility] [address] [id number] [place] [address] Dec, [facility] [place] [facility] [address] [id number] [place] [address]- [address] 30 Nov, 2013 [facility] [place] [facility] [address] [id number] [place] [address] 30 Nov, 2013 [facility] [place] [facility] [address] [id number] [place] [address]- [address] 26 Nov, 2013 [facility] [place] [facility] [address] [id number] [place] [address]- [address] 26 Nov, 2013 [facility] [place] [facility] [address] [id number] [place] [address]- [address] 24 Nov, 2013 [facility] [place] [facility] [address] [id number] [place] [address] 24 Nov, 2013 [facility] [place] [facility] [address] [id number] [place] [address]- [address] 23 Nov, 2013 [facility] [place] [facility] [address] [id number] [place] [address] 23 Nov, 2013 [facility] [place] [facility] [address] [id number] [place] [address] 18 Nov, 2013 [facility] [place] [facility] [address] [id number] [place] [address] 18 Nov, 2013 [facility] [place] [facility] [address] [id number] [place] [address] 254 17 Nov, 2013 [facility] [place] [facility] [address] [id number] [place] [address]46 17 Nov, 2013 [facility] [place] [facility] [address] [id number] [place] [address]- [address] 11 Nov, 2013 [facility] [place] [facility] [address] [id number] [place] [address] 11 Nov, 2013 [facility] [place] [facility] [address] [id number] [place] [address] 10 Nov, 2013 [facility] [facility] [address] [id number] [place] [address] 10 Nov, 2013 [facility] [place] [facility] [address] [id number] [place] [address] 08 Nov, 2013 [facility] [place] [facility] [address] [id number] [place] [address] 4410 08 Nov, 2013 [facility] [place] [facility] [address] [id number] [place] [address]85 Sep, [facility] [place] [facility] [address] [id number] [place] [address] 3865 Sep, [facility] [place] [facility] [address] [id number] [place] [address] 4258 Sep, [facility] [place] [facility] [address] [id number] [place] [address] 1143 Sep, [facility] [place] [facility] [address] [id number] [place] [address] 7137 Sep, [facility] [place] [facility] [address] [id number] [place] [address] 1661 Sep, [facility] [place] [facility] [address] [id number] [place] [address]- 9331 Aug, [facility] [place] [facility] [address] [id number] [place] [address]- 6618 Aug, [facility] [place] [facility] [address] [id number] [place] [address]- 7145 Aug, [facility] [place] [facility] [address] [id number] [place] [address]- 4337 Aug, [facility] [place] [facility] [address] [id number] [place] [address]- 2743 Aug, [facility] [place] [facility] [address] [id number] [place] [address]- 8937 Aug, [facility] [place] [facility] [address] [id number] [place] [address]- 4770 Aug, [facility] [place] [facility] [address] [id number] [place] [address]- 0941 Aug, [facility] [place] [facility] [address] [id number] [place] [address]- 1666 Aug, [facility] [place] [facility] [address] [id number] [place] [address]- 6797 Aug, [facility] [place] [facility] [address] [id number] [place] [address]- 5495 Aug, [facility] [place] [facility] [address] [id number] [place] [address]- 1709 July, [facility] [place] [facility] [address] [id number] [place] [address]- 9298 July, [facility] [place] [facility] [address] [id number] [place] [address]- 5140 Jun, [facility] [place] [facility] [address] [id number] [place] [address]- 3415 Jun, [facility] [place] [facility] [address] [id number] [place] [address]- 4825 Jun, [facility] [place] [facility] [address] [id number] [place] [address]- 8297 Jun, [facility] [place] [facility] [address] [id number] [place] [address]- 7641 Jun, [facility] [place] [facility] [address] [id number] [place] [address]- 8747 Jun, [facility] [place] [facility] [address] [id number] [place] [address]- 0895 15 Jun, 2013 [facility] [place] [facility] [address] [id number] [place] [address]- 2594 Jun, [facility] [place] [facility] [address] [id number] [place] [address]- 2186 Jun, [facility] [place] [facility] [address] [id number] [place] [address]- 4856 Jun, [facility] [place] [facility] [address] [id number] [place] [address]- 1486 Jun, [facility] [place] [facility] [address] [id number] [place] [address]- 4366 Jun, [facility] [place] [facility] [address] [id number] [place] [address]- 0409 May, [facility] [place] [address] [id number] [place] [address]- 5803 May, [facility] [place] [facility] [address] [id number] [place] [address]- 1010 May, [facility] [place] [facility] [address] [id number] [place] [address]- 2437 May, [facility] [place] [facility] [address] [id number] [place] [address]- 3827 May, [facility] [place] [facility] [address] [id number] [place] [address]- 5679 May, [facility] [place] [facility] [address] [id number] [place] [address]- 2454 May, [facility] [place] [address] [id number] [place] [address]- 9718 May, [facility] [address] [id number] [place] [address]- 5211 May, [facility] [address] [id number] [place] [address]- 8102 May, [facility] [address] [id number] [place] [address]- 7533 May, [facility] [address] [id number] [place] [address]- 9280 May, [facility] [address] [id number] [place] [address]- 8156 Apr, [facility] [address] [facility] [id number] [place] [address]- 6976 Apr, [facility] [address] [facility] [id number] [place] [address]- 1916 Apr, [facility] [address] [facility] [id number] [place] [address]- 4509 Apr, [facility] [address] [facility] [id number] [place] [address]- 6106 Apr, [facility] [address] [facility] [id number] [place] [address]- 5426 Apr, [facility] [address] [facility] [id number] [place] [address]- 5447 Apr, [facility] [address] [facility] [id number] [place] [address]- 3683 Apr, [facility] [address] [facility] [id number] [place] [address]- 3401 Apr, [facility] [address] [facility] [id number] [place] [address]- 8439 Apr, [facility] [address] [facility] [id number] [place] [address]- 4176 Apr, [facility] [address] [facility] [id number] [place] [address]- 254 Apr, [facility] [address] [facility] [id number] [place] [address]- 9702 Apr, [facility] [address] [facility] [id number] [place] [address]- 2542 Apr, [facility] [address] [facility] [id number] [place] [address]- 8379 Apr, [facility] [address] [id number] [place] [address]- 6030 Apr, [facility] [address] [id number] [place] [address]- 7199 Apr, [facility] [address] [facility] [id number] [place] [address]- 6324 Jan, [facility] [address] [id number] [place] [address]- 6250 Jan, [facility] [address] [id number] [place] [address]- 8857 Jan, [facility] [address] [id number] [place] [address]- 8678 Jan, [facility] [address] [facility] [id number] [place] [address]- 9918 Jan, [facility] [address] [id number], [place] [address]- 4383 Jan, [facility] [address] [id number] [place] [address]- 3332 Jan, [facility] [address] [facility] [id number][place] [address]- 9750 Dec, [facility] [address] [id number], [place] [address]- 9217 Dec, [facility] [address] [id number], [place] [address]- 4687 Dec, [facility] [address] [id number], [place] [address]- 8728 Nov, [facility] [address] [id number], [place] [address]- 3219 10 Nov, 2012 [facility] [address] [facility] [id number], [place] [address]- [address] 05 Nov, 2012 [facility] [address] [id number] [place] [address]- 9973 Nov, [facility] [address] [id number] [place] [address]- 1348 Oct, [facility] [address] [id number] [place] [address]- 9737 Oct, [facility] [address] [id number] [place] [address]- 8480 Oct, [facility] [address] [id number] [place] [address]- 4308 Oct, [facility] [address] [id number] [place] [address]- 8146 Oct, [facility] [address] [id number] [place] [address]- 1429 Sep, [facility] [address] [id number] [place] [address]- 9857 Sep, [facility] [address] [id number] [place] [address]- 6363 Sep, [facility] [address] [id number] [place] [address]- 9235 Sep, [facility] [address] [id number] [place] [address]- 8137 Sep, [facility] [address] [id number] [place] [address]- 8493 Sep, [facility] [address] [id number] [place] [address]- 4532 Sep, [facility] [address] [id number] [place] [address]- 9314 Aug, [facility] [address] [id number] [place] [address]- 7070 Aug, [facility] [address] [id number] [place] [address]- 1561 July, [facility] [address] [id number] [place] [address]- 7134 Jun, [facility] [address] [id number] [place] [address]- 0450 Jun, [facility] [address] [id number] [place] [address]- 2235 Jun, [facility] [address] [id number] [place] [address]- 6529 Apr, [facility] [address] [id number] [place] [address]- 3708 Apr, [facility] [address] [id number] [place] [address]- 2788 Apr, [facility] [address] [id number] [place] [address]- 8379 Mar, [facility] [address] [id number] [place] [address]- 2567 Mar, [facility] [address] [id number] [place] [address]- 3453 Mar, [facility] [address] [id number] [place] [address]- 7067 Mar, [facility] [address] [id number] [place] [address]- 1255 Mar, [facility] [address] [id number] [place] [address]- 0216 14 Feb, 2012 [facility] [address] [id number] [place] [address]- 4444 Feb, [facility] [address] [id number] [place] [address]- 3517 Jan, [facility] [address] [id number] [place] [address]- 9444 13 Jan, 2012 [facility] [address] [id number], [place] [address]- 4112 Jan, [facility] [address] [id number] [place] [address]- 3374 13 Jan, 2012 [facility] [address] [id number] [place] Jan, [facility] [address] [facility] [id number] [place] [address]- 1445 Jan, [facility] [address] [id number] [place] [address]- 7826 Jan, [facility] [address] [id number] [place] [address]- 3835 Dec, [facility] [address] [id number] [place] [address]- 9449 Dec, [facility] [address] [facility] [id number], [place] [address]- 9090 Dec, [facility] [address] [id number] [place] [address]- 8548 Dec, [facility] [address] [id number] [place] [address]- 1490 Dec, [facility] [address] [facility] [id number] [place] [address]- 4210 Dec, [facility] [address] [id number], [place] [address]- 3688 Dec, [facility] [address] [facility] [id number], [place] [address]- 0375 Dec, [facility] [address] [id number], [place] [address]- 9580 Dec, [facility] [address] [facility] [id number] [place] [address]- 2060 Dec, [facility] [address] [facility] [id number] [place] [address]- 4396 Oct, [facility] [address] [id number] [place] [address]- 2114 14 Oct, 2011 [facility] [address] [id number] [place] [address]- 9127 14 Aug, 2011 [facility] [address] [id number] [place] [address]- 4136 14 Aug, 2011 [facility] [address] [id number] [place] [address]- 8056 July, [facility] [address] [id number] [place] [address]- 7842 Jun, [facility] [address] [id number] [place] [address]- 2006 Jun, [facility] [address] [id number] [place] [address]- 8476 May, [facility] [address] [id number] [place] [address]- 7068 Apr, [facility] [address] [id number] [place] [address]- 6423 Apr, [facility] [address] [id number] [place] [address]- 3246 Mar, [facility] [address] [id number] [place] [address]- 0057 16 Mar, 2011 [facility] [address] [id number] [place] [address]- 9420 19 Feb, 2011 [facility] [address] [id number] [place] [address]- 4602 15 Feb, 2011 [facility] [place] [facility] [address] [id number] [place] [address]- 7454 13 Feb, 2011 [facility] [address] [id number] [place] [address]- 7206 13 Feb, 2011 [facility] [address] [id number] [place] [address]- 9050 Jan, [facility] [address] [id number], [place] [address]- 9652 Dec, [facility] [id number], [place] [address]- 1332 Feb, [facility] [id number], [place] [address]- 0500 Feb, [facility] [id number] [place] [address]- 5839 Feb, [facility] [id number] [place] [address] 814[address]- 7026 Feb, [facility] [id number] [place] [address] 107[address]- 8103 Dec, [facility] [id number] [place] [address] 807[address]- 2597 Dec, [facility] [id number] [place] [address] 18469- 4829 Oct, [facility] [id number] [place] [address]- 8290 Jun, [facility] [id number], [place] [address]- 8141 Feb, [facility] [id number], [place] [address]- 7707 Feb, [facility] [id number], [place] [address]- 0695 Feb, [facility] [address] [id number], [place] [address]- 5769 Dec, IMMUNIZATIONS No Known Immunizations SOCIAL HISTORY [...] 1985, 1987 Surgical History cholecystectomy Surgical History [place] 06/2009 Surgical History Left leg exploratory surgery r/t clot 1987 Hospitalization History Ruptured Ovarian Cyst with abd bleeding 11/2009
--- OUTSIDE RECORDS SUMMARY | 2018-08-02 09:16 | XMS REPORT ---
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
--- OUTSIDE RECORDS SUMMARY | 2018-08-02 09:16 | XMS REPORT ---
Author Author ASHLEY BRUNO [facility] e[employer] Address Unknown Phone Unavailable Care Team Providers Care Liner Replacer Name Role Phone ASHLEY BRUNO Unavailable Allergies [...]
--- OUTSIDE RECORDS SUMMARY | 2018-08-02 09:16 | XMS REPORT ---
Author Author NISH LAWTON [facility] IN [facility] Address [address] [place] [address] Care Team Providers Care Lead Pl Sql Developer Name Role Phone NISH LAWTON Unavailable PROBLEMS Type Condition ICD9-CM Code TKI25-YC Code Onset Dates Condition Status SNOMED Code Problem Hypertriglyceridemia E78.1 Active 627470639 Problem Generalized anxiety disorder F41.1 Active 055831558 Problem [facility]FP (current) use of anticoagulants Z79.01 Active 290820749 Problem Factor V Leiden D68.51 Active 626409057 Problem History of DVT (deep vein thrombosis) Z86.718 Active 513298386 Problem Excessive daytime sleepiness G47.19 Active 929956515587 Problem Gastroesophageal reflux disease, esophagitis presence not specified K21.9 Active 072335796 Problem Pelvic pain R10.2 Active 92110477 Problem 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 Active 703567528 Problem Presence of IVC filter Z95.828 Active 172042338 Problem Peripheral edema R60.9 Active 309366413 ALLERGIES No Known Allergies ENCOUNTERS Encounter Location Date Diagnosis [place] [address] [address] July, [place] [address] [address] Jun, History of DVT (deep vein thrombosis) Z86.718 [place] [address] [place] [id number] [place] [address] 69637- 9779 Jun, History of DVT (deep vein thrombosis) Z86.718 [place] [address] [place] [id number] [place] [address] 49745- 5476 Jun, Impingement syndrome, shoulder, left M75.42 [place] [address] 58489- 2142 May, Subacromial bursitis of left shoulder joint M75.52 [place] [address] [place] [id number] [place] [address] 33474- 8572 May, [place] [address] [place] [id number] [place] [address] 09047- 5276 May, Hypertriglyceridemia E78.1 ; [facility]FP (current) use of anticoagulants Z79.01 and Excessive daytime sleepiness G47.19 [place] [address] [place] [id number] [place] [address] 00346- 254 May, History of DVT (deep vein thrombosis) Z86.718 ; Generalized anxiety disorder F41.1 ; Hypertriglyceridemia E78.1 ; [facility]FP (current) use of anticoagulants Z79.01 ; Subacromial bursitis of left shoulder joint M75.52 and Excessive daytime sleepiness G47.19 [place] [address] [place] [id number] [place] [address] 68965- 5264 May, [place] [address] [place] [id number] [place] [address] 55621 2545 May, 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 [place] [address] [place] [id number] [place] [address] 02383- 8596 Apr, [facility] (current) use of anticoagulants Z79.01 [place] [id number] [place] [address] 75747- 1951 Apr, 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 [place] [address] [place] [address] 32559- 2549 Apr, [facility] (current) use of anticoagulants Z79.01 [place] [address] [place] [address] 25342- 2546 Apr, [place] [address] [place] [id number] [place] [address] 17202- 5671 Apr, [facility] (current) use of anticoagulants Z79.01 [place] [address] [address] 2546 13 Apr, 2017 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 [facility] [address] [place] [address] 82337 2546 Apr, [facility]FP (current) use of anticoagulants Z79.01 [facility] [address] [place] [address] 29916 2546 Apr, 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 [facility] [address] [place] [address] 47783 2546 Apr, 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 [facility] [address] [place] [address] 51692 2546 Apr, [facility] (current) use of anticoagulants Z79.01 [facility] [address] [place] [address] 46845 2546 Mar, 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 [facility] [address] [place] [address] 58608 2546 Mar, [facility] [address] [place] [id number] [place] [address] 06726 2546 Mar, [facility] (current) use of anticoagulants Z79.01 [facility] [address] [place] [address] [id number] Jan, Dental examination Z01.20 [facility] [address] [place] [address] [id number] Jan, [facility] [address] [place] [id number] [place] [address] 56069 2546 Jan, 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 [facility] [address] [address] 2546 17 Jan, 2017 History of DVT (deep vein thrombosis) Z86.718 [place] [address] [place] [address] 10367- 3648 Jan, Generalized anxiety disorder F41.1 and Peripheral edema R60.9 [facility] [address] [place] [id number] [place] [address] 91279- 3362 Nov, History of DVT (deep vein thrombosis) Z86.718 [facility] [address] [place] [id number] [place] [address] 37312- 2018 Nov, 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 [facility] [address] [place] [address] 27233 -6128 Nov, Acute non-recurrent maxillary sinusitis J01.00 [facility] [address] [place] [id number] [place] [address] 00420- 2837 Oct, 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 [place] [address] [place] [id number] [place] [address] 93214- 8052 Oct, Personal history of venous thrombosis and embolism Z86.718 [place] [address] [place] [id number] [place] [address] 33115- 0444 Sep, [facility] [address] [place] [id number] [place] [address] 36540- 1368 Sep, Personal history of venous thrombosis and embolism Z86.718 [facility] [address] [place] [id number] [place] [address] 93627- 8751 Sep, 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 [place] [address] [place] [address] 71440- 6989 Sep, 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 [facility] [address] [place] [id number] [place] [address] 82365- 7407 Sep, Generalized anxiety disorder F41.1 and History of DVT (deep vein thrombosis) Z86.718 [facility] [address] [place] [id number] [place] [address] 84124- 0572 Aug, History of DVT (deep vein thrombosis) Z86.718 ; Generalized anxiety disorder F41.1 ; 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 ; Pelvic pain R10.2 ; Hypertriglyceridemia E78.1 ; Excessive daytime sleepiness G47.19 ; Colon cancer screening Z12.11 ; Screening for breast cancer Z12.39 ; Peripheral edema R60.9 and Gastroesophageal reflux disease, esophagitis presence not specified K21.9 [place] [address] 00532- 4479 Aug, [place] [address] 42216- 9658 July, [place] [address] 44225- 8669 July, History of DVT (deep vein thrombosis) Z86.718 [place] [address] [place] [id number] [place] [address] 43111- 5268 Jun, Generalized anxiety disorder F41.1 [place] [address] [place] [id number] [place] [address] 16766- 1752 Jun, History of DVT (deep vein thrombosis) Z86.718 [place] [address] [place] [id number] [place] [address] 89861- 3256 Jun, History of DVT (deep vein thrombosis) Z86.718 [place] [address] [place] [id number] [place] [address] 38810- 8205 Jun, History of DVT (deep vein thrombosis) Z86.718 [place] [address] [place] [id number] [place] [address] 19633- 7980 Jun, History of DVT (deep vein thrombosis) Z86.718 [place] [address] [place] [id number] [place] [address] 33728- 0424 May, History of DVT (deep vein thrombosis) Z86.718 [place] [address] [place] [id number] [place] [address] 68726- 9224 May, 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 [facility] [address] [place] [id number] [place] [address] 58302- 3502 May, [facility]FP (current) use of anticoagulants Z79.01 [facility] [address] [place] [id number] [place] [address] 16318- 0050 May, History of DVT (deep vein thrombosis) Z86.718 [facility] [address] [place] [id number] [place] [address] 10117 -5157 27 Apr, 2016 Bacterial conjunctivitis of left eye H10.9 and H/O motion sickness Z87.898 [facility] [address] [place] [id number] [place] [address] 61256- 4227 24 Apr, 2016 History of DVT (deep vein thrombosis) Z86.718 [place] [address] [place] [id number] [place] [address] 24142- 9051 23 Apr, 2016 History of DVT (deep vein thrombosis) Z86.718 [facility] [address] [place] [id number] [place] [address] 82729- 9793 15 Apr, 2016 History of DVT (deep vein thrombosis) Z86.718 [facility] [address] [place] [id number] [place] [address] 18799- 3480 14 Apr, 2016 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 [place] [address] [place] [id number] [place] [address] 70895- 4239 Mar, [place] [address] [place] [id number] [place] [address] 59926- 2811 Mar, [facility]FP (current) use of anticoagulants Z79.01 [place] [address] [place] [id number] [place] [address] 64329- 6301 Mar, [facility]FP (current) use of anticoagulants Z79.01 and Hypertriglyceridemia E78.1 [place] [address] 74538- 5442 Feb, [facility]FP (current) use of anticoagulants Z79.01 [facility] [address] [place] [address] 36141- 7766 Feb, [facility]FP (current) use of anticoagulants Z79.01 [facility] [address] [place] [id number] [place] [address] 90914 2546 Feb, 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 [place] [address] [place] [id number] [place] [address] 43632- 5236 Dec, [place] [address] [place] [id number] [place] [address] 93931- 9816 Nov, [place] [address] [place] [id number] [place] [address] 21596- 8576 Nov, History of DVT (deep vein thrombosis) Z86.718 ; Tremulousness R25.1 ; Generalized anxiety disorder F41.1 ; Peripheral edema R60.9 and Hypertriglyceridemia E78.1 [place] [address] [place] [id number] [place] [address] 47250- 5146 Oct, History of DVT (deep vein thrombosis) Z86.718 [place] [address] [place] [id number] [place] [address] 07083- 3386 Oct, [place] [address] [place] [id number] [place] [address] 31452- 9766 Sep, History of DVT (deep vein thrombosis) Z86.718 [facility] [address] [place] [address] 64195- 2546 Sep, [facility]FP (current) use of anticoagulants Z79.01 [place] [address] [place] [id number] [place] [address] 00054- 3226 July, [place] [address] [place] [id number] [place] [address] 66345- 5756 July, 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 [place] [address] [place] [id number] [place] [address] 35151- 5304 July, [facility] (current) use of anticoagulants Z79.01 [place] [address] 37171- 7380 Jun, [facility] (current) use of anticoagulants Z79.01 [facility] [address] 79095 -7821 Jun, Coccyx pain M53.3 ; Encounter for therapeutic drug level monitoring Z51.81 and 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 current use 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.01 [place] [address] 42004- 8830 May, Abnormal mammogram R92.8 [facility] [place] [address] 10482 -8179 May, [facility] [place] [address] 40065 -0908 May, Acute vaginitis N76.0 and Encounter for other screening for malignant neoplasm of breast Z12.39 [place] [address] 40732- 9633 Apr, [place] [address] 15611- 1850 Apr, [place] [address] [place] [id number] [place] [address] 36192- 1570 Apr, Peripheral edema R60.9 [place] [address] 87134- 5292 Apr, [facility]FP (current) use of anticoagulants Z79.01 [place] [address] [place] [id number] [place] [address] 39992- 8781 Apr, Peripheral edema R60.9 and MCFP (current) use of anticoagulants Z79.01 [place] [address] 45897- 1001 Apr, 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 [place] [address] [place] [id number] [place] [address] 10943- 0839 Apr, [place] [address] [place] [id number] [place] [address] 03857- 1926 Apr, [facility]FP (current) use of anticoagulants Z79.01 [place] [address] 23500- 3039 Apr, Peripheral edema R60.9 [place] [address] [place] [id number] [place] [address] 38637- 0090 Mar, [facility]FP (current) use of anticoagulants Z79.01 [place] [address] [place] [id number] [place] [address] 97257- 6831 Mar, [facility]FP (current) use of anticoagulants Z79.01 and Hypertriglyceridemia E78.1 [place] [address] 80725- 6855 Mar, [facility] (current) use of anticoagulants Z79.01 [place] [address] [place] [id number] [place] [address] 54012- 2460 Mar, [facility] (current) use of anticoagulants Z79.01 [place] [address] [place] [id number] [place] [address] 08213- 1227 Mar, [place] [address] [place] [id number] [place] [address] 08770- 7748 Mar, [facility]FP (current) use of anticoagulants Z79.01 ; Hypertriglyceridemia E78.1 ; Personal history of venous thrombosis and embolism Z86.718 and Lump R22.9 [place] [address] [place] [id number] [place] [address] 81783- 4285 Mar, Personal history of venous thrombosis and embolism Z86.718 [place] [address] [place] [id number] [place] [address] 99045- 3985 Mar, Personal history of venous thrombosis and embolism Z86.718 [facility] [address], [place] [address]- 2169 Mar, [facility] [address], [place] [address]- 5956 Dec, Personal history of venous thrombosis and embolism Z86.718 [facility] [address], [place] [address]- 9846 Dec, Personal history of venous thrombosis and embolism V12.51 [facility] [address] [facility] [id number] [address]- 8265 Nov, Personal history of venous thrombosis and embolism V12.51 [facility] [address] [place] [address] 13944- 5556 Nov, Personal history of venous thrombosis and embolism V12.51 [facility] [address] [place] [address] 28787- 8365 Nov, Personal history of venous thrombosis and embolism V12.51 [facility] [address] [address]- 0459 Nov, Personal history of venous thrombosis and embolism V12.51 [facility] [address], [place] [address]- 1874 Nov, [facility] [address] [address]- 3341 Oct, Dysuria 788.1 [facility] [address], [place] [address]- 8711 Oct, Personal history of venous thrombosis and embolism V12.51 [facility] [address], [place] [address]- 9182 Oct, [facility] [address], [place] [address]- 1536 Oct, Personal history of venous thrombosis and embolism V12.51 [facility] [address] [place] [id number] [address]- 1872 Sep, Personal history of venous thrombosis and embolism V12.51 [facility] [address] [facility] [id number] 4032 Sep, Personal history of venous thrombosis and embolism V12.51 [facility] [address] [place] [id number]- 8163 Aug, Personal history of venous thrombosis and embolism V12.51 [facility] [address] [facility] [id number]- 6180 Aug, Personal history of venous thrombosis and embolism V12.51 [facility] [address]- 0513 Aug, Personal history of venous thrombosis and embolism V12.51 [facility] [address], [place] [address]- 9449 July, Generalized anxiety disorder 300.02 ; Abdominal pain, left lower quadrant 789.04 and Personal history of venous thrombosis and embolism V12.51 [facility] [address], [place] [address]- 4252 14 Jun, 2014 [facility] [address], [place] [address]- 9110 Jun, [facility] [address] [place] [id number] [address]- 9019 May, [facility] [address] [address]- 1314 27 May, 2014 [facility] [address] [place] [id number] [address]- 7630 17 May, 2014 [facility] [address] [facility] [id number]- 7222 17 May, 2014 [facility] [address] [place] [id number]- 6480 May, [facility] [address] [place] [id number] [place] [address], [place] [address]- 6613 May, [facility] [place] [facility] [address] [id number] [place] [address]- 7056 May, [facility] [place] [facility] [address] [id number] [place] [address]- 7308 May, [facility] [place] [facility] [address] [id number] [place] [address]- 5112 Apr, [facility] [place] [facility] [address] [id number] [place] [address]- 6069 Apr, [facility] [place] [facility] [address] [id number] [place] [address]- 3913 Apr, [facility] [place] [facility] [address] [id number] [place] [address]- 3708 Apr, [facility] [place] [facility] [address] [facility] [id number] [place] [address]- 5663 Apr, [facility] [place] [facility] [address] [id number] [place] [address]- 1539 Mar, [facility] [place] [facility] [address] [id number] [place] [address]- 1685 Mar, [facility] [place] [facility] [address] [facility] [id number] [place] [address]- 3434 Mar, [facility] [place] [facility] [address] [id number] [place] [address]- 2700 Mar, [facility] [place] [facility] [address] [id number] [place] [address]- 1724 Mar, [facility] [place] [facility] [address] [id number] [place] [address]- 0840 Mar, [facility] [place] [facility] [address] [facility] [id number] [place] [address]- 0950 Feb, [facility] [place] [facility] [address] [facility] [id number] [place] [address]- 9479 Feb, [facility] [place] [facility] [address] [id number] [place] [address]- 8907 Feb, [facility] [place] [facility] [address] [id number] [place] 1614 Feb, [facility] [place] [facility] [address] [id number] [place] [address]- 8203 Feb, [facility] [place] [facility] [address] [id number] [place] [address]- 7695 Feb, [facility] [place] [facility] [address] [id number] [place] 9554 Feb, [facility] [place] [facility] [address] [id number] [place] [address]- 8847 Feb, [facility] [place] [facility] [address] [id number] [place] [address]- 1618 Feb, [facility] [place] [facility] [address] [id number] [place] [address]- 6156 Feb, [facility] [place] [facility] [address] [id number] [place] [address]- 1043 Jan, [facility] [place] [facility] [address] [id number] [place] [address]- 5492 Jan, [facility] [place] [facility] [address] [id number] [place] [address] Jan, [facility] [place] [facility] [address] [id number], [place] [address] Jan, [facility] [place] [facility] [address] [id number] [place] [address] Jan, [facility] [place] [facility] [address] [id number] [place] [address] Jan, [facility] [place] [facility] [address] [id number], [place] [address] Jan, [facility] [place] [facility] [address] [id number], [place] [address] Jan, [facility] [place] [facility] [address] [id number] [place] [address] Jan, [facility] [place] [facility] [address] [id number] [place] [address] Jan, [facility] [place] [facility] [address] [id number] [place] [address] Dec, [facility] [place] [facility] [address] [id number] [place] [address] Dec, [facility] [place] [facility] [address] [id number] [place] [address] Dec, [facility] [place] [facility] [address] [id number] [place] [address] Dec, [facility] [place] [facility] [address] [id number] [place] [address] Dec, [facility] [place] [facility] [address] [id number] [place] [address] Dec, [facility] [place] [facility] [address] [id number] [place] [address] Dec, [facility] [place] [facility] [address] [facility] [id number] [place] [address] Dec, [facility] [place] [facility] [address] [id number], [place] [address] Dec, [facility] [place] [facility] [address] [id number], [place] [address] Dec, [facility] [place] [facility] [address] [id number] [place] [address] Dec, [facility] [place] [facility] [address] [id number] [place] [address] Dec, [facility] [place] [facility] [address] [facility] [id number] [place] [address] Dec, [facility] [place] [facility] [address] [id number] [place] [address] Dec, [facility] [place] [facility] [address] [id number] [place] [address] Dec, [facility] [place] [facility] [address] [id number] [place] [address] 30 Nov, 2013 [facility] [place] [facility] [address] [id number] [place] [address] 30 Nov, 2013 [facility] [place] [facility] [address] [id number] [place] [address] 26 Nov, 2013 [facility] [place] [facility] [address] [id number] [place] [address] 26 Nov, 2013 [facility] [place] [facility] [address] [id number] [place] [address] 24 Nov, 2013 [facility] [place] [facility] [address] [id number] [place] [address] 24 Nov, 2013 [facility] [place] [facility] [address] [id number] [place] [address] 2548 23 Nov, 2013 [facility] [place] [facility] [address] [id number] [place] [address] 2542 23 Nov, 2013 [facility] [place] [facility] [address] [id number] [place] [address] 2545 18 Nov, 2013 [facility] [place] [facility] [address] [id number] [place] [address] 2543 18 Nov, 2013 [facility] [place] [facility] [address] [id number] [place] [address] 2542 17 Nov, 2013 [facility] [place] [facility] [address] [id number] [place] [address] 2546 17 Nov, 2013 [facility] [place] [facility] [address] [id number] [place] [address]- 2546 11 Nov, 2013 [facility] [place] [facility] [address] [id number] [place] [address]- 0228 11 Sep, 2013 [facility] [place] [facility] [address] [id number] [place] [address] 9864 10 Nov, 2013 [facility] [place] [facility] [address] [id number] [place] [address]- 7837 10 Nov, 2013 [facility] [place] [facility] [address] [id number] [place] [address]- 2509 08 Nov, 2013 [facility] [place] [facility] [address] [id number] [place] [address]- 3131 08 Nov, 2013 [facility] [place] [facility] [address] [id number] [place] [address] 8060 Sep, [facility] [place] [facility] [address] [id number] [place] [address]- 6029 Sep, [facility] [place] [facility] [address] [id number] [place] [address] 4243 Sep, [facility] [place] [facility] [address] [id number] [place] [address]- 0220 Sep, [facility] [place] [facility] [address] [id number] [place] [address]- 7744 Sep, [facility] [place] [facility] [address] [id number] [place] [address]- 0718 Sep, [facility] [place] [facility] [address] [id number] [place] [address]- 8931 Aug, [facility] [place] [facility] [address] [id number] [place] [address]- 2308 Aug, [facility] [place] [facility] [address] [id number] [place] [address]- 0340 Aug, [facility] [place] [facility] [address] [id number] [place] [address]- 4842 Aug, [facility] [place] [facility] [address] [id number] [place] [address]- 8513 24 Aug, 2013 [facility] [place] [facility] [address] [id number] [place] [address]- 6636 11 Aug, 2013 [facility] [place] [facility] [address] [id number] [place] [address]- 2354 Aug, [facility] [place] [facility] [address] [id number] [place] [address]- 4810 Aug, [facility] [place] [facility] [address] [id number] [place] [address]- 3818 Aug, [facility] [place] [facility] [address] [id number] [place] [address]- 7122 Aug, [facility] [place] [facility] [address] [id number] [place] [address]- 2484 Aug, [facility] [place] [facility] [address] [id number] [place] [address]- 1338 July, [facility] [place] [facility] [address] [id number] [place] [address]- 5574 July, [facility] [place] [facility] [address] [id number] [place] [address]- 1573 Jun, [facility] [place] [facility] [address] [id number] [place] [address]- 2958 Jun, [facility] [place] [facility] [address] [id number] [place] [address]- 3213 Jun, [facility] [place] [facility] [address] [id number] [place] [address]- 6255 Jun, [facility] [place] [facility] [address] [id number] [place] [address]- 3718 Jun, [facility] [place] [facility] [address] [id number] [place] [address]- 3862 Jun, [facility] [place] [facility] [address] [id number] [place] [address]- 6122 Jun, [facility] [place] [facility] [address] [id number] [place] [address]- 2890 Jun, [facility] [place] [facility] [address] [id number] [place] [address]- 1458 Jun, [facility] [place] [facility] [address] [id number] [place] [address]- 5830 Jun, [facility] [place] [facility] [address] [id number] [place] [address]- 2526 Jun, [facility] [place] [facility] [address] [id number] [place] [address]- 5966 Jun, [facility] [place] [facility] [address] [id number] [place] [address]- 7758 May, [facility] [place] [facility] [address] [id number] [place] [address]- 2540 May, [facility] [place] [facility] [address] [id number] [place] [address]- 7533 May, [facility] [place] [facility] [address] [id number] [place] [address]- 1654 May, [facility] [place] [facility] [address] [id number] [place] [address]- 6338 May, [facility] [place] [facility] [address] [id number] [place] [address]- 0045 May, [facility] [place] [facility] [address] [id number] [place] [address]- 7442 May, [facility] [place] [facility] [address] [id number] [place] [address]- 0658 May, [facility] [place] [facility] [address] [id number] [place] [address]- 3470 May, [facility] [place] [facility] [address] [id number] [place] [address]- 5340 May, [facility] [place] [facility] [address] [id number] [place] [address]- 0538 May, [facility] [place] [facility] [address] [id number] [place] [address]- 9830 May, [facility] [place] [facility] [address] [id number] [place] [address]- 1534 Apr, [facility] [place] [facility] [address] [id number] [place] [address]- 7146 Apr, [facility] [place] [facility] [address] [facility] [id number] [place] [address]- 2016 Apr, [facility] [place] [facility] [address] [id number] [place] [address]- 1566 Apr, [facility] [place] [facility] [address] [id number] [place] [address]- 1456 Apr, [facility] [place] [facility] [address] [facility] [id number] [place] [address]- 2526 Apr, [facility] [place] [facility] [address] [facility] [id number] [place] [address]- 7058 Apr, [facility] [place] [facility] [address] [facility] [id number] [place] [address]- 5927 Apr, [facility] [place] [facility] [address] [facility] [id number] [place] [address]- 1900 Apr, [facility] [place] [facility] [address] [facility] [id number] [place] [address]- 2940 Apr, [facility] [place] [facility] [address] [facility] [id number] [place] [address]- 6296 Apr, [facility] [place] [facility] [address] [facility] [id number] [place] [address]- 2541 Apr, [facility] [place] [facility] [address] [facility] [id number] [place] [address]- 1135 Apr, [facility] [place] [facility] [address] [facility] [id number] [place] [address]- 6167 Apr, [facility] [place] [facility] [address] [facility] [id number] [place] [address]- 7247 Apr, [facility] [place] [facility] [address] [id number] [place] [address]- 4138 Apr, [facility] [place] [facility] [address] [id number] [place] [address]- 5495 Apr, [facility] [place] [facility] [address] [id number] [place] [address]- 3100 Jan, [facility] [place] [facility] [address] [id number] [place] [address]- 6777 Jan, [facility] [place] [facility] [address] [id number] [place] [address]- 4684 Jan, [facility] [place] [facility] [address] [id number] [place] [address]- 2560 Jan, [facility] [place] [facility] [address] [id number] [place] [address]- 9007 Jan, [facility] [place] [facility] [address] [id number][place] [address]- 1370 Jan, [facility] [place] [facility] [address] [id number] [place] [address]- 5244 Jan, [facility] [place] [facility] [address] [id number], [place] [address]- 1573 Dec, [facility] [place] [facility] [address] [id number], [place] [address]- 7521 Dec, [facility] [place] [facility] [address] [id number], [place] [address]- 9996 Dec, [facility] [place] [facility] [address] [id number] [place] [address]- 2383 Nov, [facility] [place] [facility] [address] [id number], [place] [address]- 0796 10 Nov, 2012 [facility] [place] [facility] [address] [facility] [id number], [place] [address]- 8782 05 Nov, 2012 [facility] [place] [facility] [address] [id number] [place] [address]- 1805 Nov, [facility] [address] [id number] [place] [address]- 3766 Oct, [facility] [place] [facility] [address] [id number] [place] [address]- 4517 Oct, [facility] [place] [facility] [address] [id number] [place] [address]- 7366 Oct, [facility] [place] [facility] [address] [id number] [place] [address]- 1482 Oct, [facility] [place] [facility] [address] [id number] [place] [address]- 1741 Oct, [facility] [place] [facility] [address] [id number] [place] [address]- 3775 Sep, [facility] [place] [facility] [address] [id number] [place] [address]- 5606 Sep, [facility] [place] [facility] [address] [id number] [place] [address]- 0158 Sep, [facility] [place] [facility] [address] [id number] [place] [address]- 1837 Sep, [facility] [place] [facility] [address] [id number] [place] [address]- 1255 Sep, [facility] [place] [facility] [address] [id number] [place] [address]- 2851 Sep, [facility] [place] [facility] [address] [id number] [place] [address]- 6226 Sep, [facility] [place] [facility] [address] [id number] [place] [address]- 2912 Aug, [facility] [place] [facility] [address] [id number] [place] [address]- 4666 Aug, [facility] [place] [facility] [address] [id number] [place] [address]- 3614 July, [facility] [place] [facility] [address] [id number] [place] [address]- 7943 Jun, [facility] [address] [id number] [place] [address]- 4623 Jun, [facility] [place] [facility] [address] [id number] [place] [address]- 1723 Jun, [facility] [place] [facility] [address] [id number] [place] [address]- 6324 Apr, [facility] [address] [id number] [place] [address]- 7968 Apr, [facility] [place] [facility] [address] [id number] [place] [address]- 0138 Apr, [facility] [address] [id number] [place] [address]- 3523 Mar, [facility] [address] [id number] [place] [address]- 5313 Mar, [facility] [address] [id number] [place] [address]- 6873 Mar, [facility] [address] [id number] [place] [address]- 8152 Mar, [facility] [address] [id number] [place] [address]- 3793 Mar, [facility] [address] [id number], [place] [address]- 3010 14 Feb, 2012 [facility] [place] [facility] [address] [id number] [place] [address]- 8541 Feb, [facility] [place] [facility] [address] [id number] [place] [address]- 7052 Jan, [facility] [place] [facility] [address] [id number] [place] [address]- 4281 Jan, [facility] [place] [facility] [address] [id number], [place] [address]- 3408 Jan, [facility] [place] [facility] [address] [id number] [place] [address]- 9727 13 Jan, 2012 [facility] [place] [facility] [address] [id number] [place] [address]- 2836 Jan, [facility] [place] [facility] [address] [facility] [id number] [place] [address]- 0158 Jan, [facility] [place] [facility] [address] [id number] [place] [address]- 3509 Jan, [facility] [place] [facility] [address] [id number] [place] [address], [place] [address]- 4997 Dec, [facility] [place] [facility] [address] [facility] [id number] [place] [address]- 8971 Dec, [facility] [place] [facility] [address] [facility] [id number] [place] [address]- 8015 Dec, [facility] [place] [facility] [address] [facility] [id number] [place] [address]- 3943 Dec, [facility] [place] [facility] [address] [facility] [id number] [place] [address]- 1848 Dec, [facility] [place] [facility] [address] [facility] [id number] [place] [address]- 8505 Dec, [facility] [place] [facility] [address] [facility] [id number], [place] [address]- 8715 Dec, [facility] [place] [facility] [address] [facility] [id number], [place] [address]- 9753 Dec, [facility] [place] [facility] [address] [facility] [id number] [place] [address]- 9237 Dec, [facility] [place] [facility] [address] [facility] [id number] [place] [address]- 1733 Dec, [facility] [place] [facility] [address] [facility] [id number] [place] [address]- 9397 Oct, [facility] [place] [facility] [address] [id number] [place] [address]- 8444 14 Oct, 2011 [facility] [place] [facility] [address] [id number] [place] [address]- 9272 14 Aug, 2011 [facility] [place] [facility] [address] [id number] [place] [address]- 8446 Aug, [facility] [place] [facility] [address] [id number] [place] [address]- 4473 July, [facility] [place] [facility] [address] [id number] [place] [address]- 3225 Jun, [facility] [place] [facility] [address] [id number] [place] [address]- 8810 Jun, [facility] [place] [facility] [address] [id number] [place] [address]- 4941 May, [facility] [place] [facility] [address] [id number] [place] [address]- 1582 Apr, [facility] [place] [facility] [address] [id number] [place] [address]- 8117 Apr, [facility] [place] [facility] [address] [id number] [place] [address]- 2968 Mar, [facility] [place] [facility] [address] [id number] [place] [address]- 5192 Mar, [facility] [place] [facility] [address] [id number] [place] [address]- 5807 19 Feb, 2011 [facility] [place] [facility] [address] [id number] [place] [address]- 4399 15 Feb, 2011 [facility] [place] [facility] [address] [id number] [place] [address]- 5924 13 Feb, 2011 [facility] [place] [facility] [address] [id number] [place] [address]- 3571 13 Feb, 2011 [facility] [place] [facility] [address] [id number] [place] [address]- 7164 Jan, [facility] [address] [id number], [place] [address]- 2536 Dec, [facility] [id number], [place] [address]- 9296 Feb, [facility] [id number], [place] [address]- 4946 Feb, [facility] [id number], [place] [address]- 1699 Feb, [facility] [id number], [place] [address]- 9802 Feb, [facility] [id number] [place] [address]- 5434 Dec, [facility] [id number], [place] [address]- 8489 Dec, [facility] [id number], [place] [address]- 0661 Oct, [facility] [id number], [place] [address]- 2107 Jun, [facility] [id number], [place] [address]- 8027 Feb, [facility] [address], [place] [address]- 3933 Feb, [facility] [address] [id number], [place] [address]- 4379 Feb, [facility] [address] [id number] [address]128 Dec, IMMUNIZATIONS Vaccine Route Administration Date Status DEXAMETHASONE 4MG/ML (PER 1 MG) IM Intramuscular Dec 06, 2016 Administered DEPO MEDROL 40 MG/ML IM Intramuscular Dec 06, 2016 Administered SOCIAL HISTORY Never Assessed REASON FOR VISIT Nasal congestion, sneezing, headache, fatigue started Thurs JStrasserRN PLAN OF CARE Activity Details Follow Up prn Reason: VITAL SIGNS Height 64 in 2016-12-06 Weight 191.4 lbs 2016-12-06 Temperature 98.7 degrees Fahrenheit 2016-12-06 Heart Rate 92 bpm 2016-12-06 Respiratory Rate 20 2016-12-06 BMI 32.85 kg/m2 2016-12-06 Blood pressure systolic 110 mmHg 2016-12-06 Blood pressure diastolic 80 mmHg 2016-12-06 MEDICATIONS Medication Instructions Dosage Frequency Start Date End Date Duration Status Ondansetron 4 MG Orally every 8 hrs PRN 1 tablet on the tongue and allow to dissolve Apr, 05 days Active Omeprazole 10 MG Orally Once a day 1 capsule 24h Active Hydrochlorothiazide 50 MG TAKE ONE TABLET BY MOUTH DAILY 90 days Active Coumadin 1 MG Orally Once a day along with 4 mg tablet 1 tablet Aug, 90 days Active Lexapro 10 mg Orally Once a day 1 tablet 24h 90 days Active Amoxicillin-Pot Clavulanate 400-57 MG/5ML Orally every 12 hrs 10 mls 12h Nov, Nov, 10 days Active Vistaril 50 mg Orally every 6 hrs 1 capsule as needed 6h 90 days Active Coumadin 4 MG Orally Once a day along with 1mg tablet 1 tablet Jun, 90 days Active RESULTS No Results PROCEDURES Procedure Date Ordered Result Body Site DEPO MEDROL 40 MG/ML Dec 06, 2016 THER/PROPH/DIAG INJ, SC/IM Dec 06, 2016 DEXAMETHASONE 4MG/ML (PER 1 MG) Dec 06, 2016 INSTRUCTIONS MEDICATIONS ADMINISTERED No Known Medications MEDICAL (GENERAL) HISTORY Type Description Date Medical History obesity Medical History Hematologic disorder factor clotting problem Medical History DVT's Surgical History Lap Band 10/2012 Surgical History section 1985, 1987 Surgical History cholecystectomy Surgical History [place] Filter 06/2009 Surgical History Left leg exploratory surgery r/t clot 1987 Hospitalization History Ruptured Ovarian Cyst with abd bleeding 11/2009
--- OUTSIDE RECORDS SUMMARY | 2018-08-02 09:16 | XMS REPORT ---
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
--- OUTSIDE RECORDS SUMMARY | 2018-08-02 09:17 | XMS REPORT ---
Author Author KIANA ASHLEY [facility] Address [address] [place] [address] Care Team Providers Care Heat Curer Name Role Phone GILSON BRUNOHANY Unavailable PROBLEMS Type Condition ICD9-CM Code [id number] Code Onset Dates Condition Status SNOMED Code Problem Hypertriglyceridemia E78.1 Active 672369696 Problem Generalized anxiety disorder F41.1 Active 610909267 Problem care home (current) use of anticoagulants Z79.01 Active 718039032 Problem Factor V Leiden D68.51 Active 979250045 Problem History of DVT (deep vein thrombosis) Z86.718 Active 032599501 Problem Excessive daytime sleepiness G47.19 Active 257964474313 Problem Gastroesophageal reflux disease, esophagitis presence not specified K21.9 Active 429918392 Problem Pelvic pain R10.2 Active 49830780 Problem 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 Active 417246527 Problem Presence of IVC filter Z95.828 Active 130828670 Problem Peripheral edema R60.9 Active 763576618 ALLERGIES No Information ENCOUNTERS Encounter Location Date Diagnosis [place] [address] [address] Jun, [place] [address] 73[address]- [address]331 May, Subacromial bursitis of left shoulder joint M75.52 [place] [address] 73462- 3565 May, [place] [address] 04381- 9834 May, Hypertriglyceridemia E78.1 ; care home (current) use of anticoagulants Z79.01 and Excessive daytime sleepiness G47.19 [place] [address] [address]- [address] May, History of DVT (deep vein thrombosis) Z86.718 ; Generalized anxiety disorder F41.1 ; Hypertriglyceridemia E78.1 ; 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 ; Subacromial bursitis of left shoulder joint M75.52 and Excessive daytime sleepiness G47.19 [place] [address] [place] [id number] [place] [address] 84448 2546 May, [place] [address] 32500 2546 May, 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 [place] [address] 9[address]34 2546 23 Apr, 2017 care home (current) use of anticoagulants Z79.01 [place] [address] [place] [id number] [place] [address] 74699 2546 Apr, 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 [place] [address] [place] [id number] [place] [address] 15802 2546 Apr, 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 [place] [address] [place] [id number] [place] [address] 25789 2546 16 Apr, 2017 [place] [address] [place] [id number] [place] [address] 88412 2546 16 Apr, 2017 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 [place] [address] [place] [id number] [place] [address] 32790 2546 13 Apr, 2017 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 [place] [address] [place] [id number] [place] [address] 56638 2546 Apr, 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 [place] [address] [place] [id number] [place] [address] 23210 2546 Apr, care home (current) use of anticoagulants Z79.01 [facility] [id number] [place] [address] 17682- 8113 07 Apr, 2017 care home (current) use of anticoagulants Z79.01 [facility] [address] [place] [id number] [place] [address] 13855 2546 Apr, 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 [place] [address] [place] [id number] [place] [address] 08480- 6786 Mar, 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 [place] [address] [place] [id number] [place] [address] 05251- 4806 Mar, [place] [address] 39709- 3326 Mar, 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 [facility] [address] [id number] Jan, Dental examination Z01.20 [facility] [address] [id number] Jan, [place] [address] 18090- 4477 Jan, care home (current) use of anticoagulants Z79.01 [place] [address] [place] [id number] [place] [address] 01187- 7767 17 Jan, 2017 History of DVT (deep vein thrombosis) Z86.718 [place] [address] [place] [id number] [place] [address] 13772- 6767 07 Jan, 2017 Generalized anxiety disorder F41.1 and Peripheral edema R60.9 [place] [address] 89047- 7827 Nov, History of DVT (deep vein thrombosis) Z86.718 [place] [address] [place] [id number] [place] [address] 30073- 6216 Nov, 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 [facility] [address] [address] Nov, Acute non-recurrent maxillary sinusitis J01.00 [facility] [address] [place] [id number] [place] [address] 76790- 6726 Oct, care home (current) use of anticoagulants Z79.01 [facility] [address] [place] [id number] [place] [address] 53913- 8205 Oct, Personal history of venous thrombosis and embolism Z86.718 [place] [address] [place] [id number] [place] [address] 97677- 6831 Sep, [place] [address] [place] [id number] [place] [address] 10268- 9767 Sep, Personal history of venous thrombosis and embolism Z86.718 [place] [address] [place] [id number] [place] [address] 94379- 9640 Sep, care home (current) use of anticoagulants Z79.01 [place] [address] [place] [id number] [place] [address] 44088- 2588 Sep, care home (current) use of anticoagulants Z79.01 [place] [address] [place] [id number] [place] [address] 46129- 6658 Sep, Generalized anxiety disorder F41.1 and History of DVT (deep vein thrombosis) Z86.718 [place] [address] [place] [id number] [place] [address] 18755- 6569 Aug, History of DVT (deep vein thrombosis) Z86.718 ; Generalized anxiety disorder F41.1 ; care home (current) use of anticoagulants Z79.01 ; Pelvic pain R10.2 ; Hypertriglyceridemia E78.1 ; Excessive daytime sleepiness G47.19 ; Colon cancer screening Z12.11 ; Screening for breast cancer Z12.39 ; Peripheral edema R60.9 and Gastroesophageal reflux disease, esophagitis presence not specified K21.9 [facility] [address] [place] [id number] [place] [address] 60158- 5876 Aug, [facility] [address] [address]- 0[address] July, [facility] [address] [place] [id number] [place] [address] 26721- 1530 July, History of DVT (deep vein thrombosis) Z86.718 [facility] [address] [place] [id number] [place] [address] 78499- 6140 Jun, Generalized anxiety disorder F41.1 [facility] [address] [place] [id number] [place] [address] 46477- 4091 Jun, History of DVT (deep vein thrombosis) Z86.718 [place] [address] [place] [id number] [place] [address] 84799- 4744 Jun, History of DVT (deep vein thrombosis) Z86.718 [place] [address] [place] [id number] [place] [address] 19685- 7029 Jun, History of DVT (deep vein thrombosis) Z86.718 [place] [address] [place] [address] 36117- 9163 Jun, History of DVT (deep vein thrombosis) Z86.718 [place] [address] [place] [id number] [place] [address] 20148- 2577 May, History of DVT (deep vein thrombosis) Z86.718 [place] [address] [place] [id number] [place] [address] 74202- 8705 May, care home (current) use of anticoagulants Z79.01 [place] [address] [place] [address] 89710- 3639 May, care home (current) use of anticoagulants Z79.01 [place] [address] [place] [address] 26934- 7195 May, History of DVT (deep vein thrombosis) Z86.718 [facility] [address] [place] [address] 47395 -0684 27 Apr, 2016 Bacterial conjunctivitis of left eye H10.9 and H/O motion sickness Z87.898 [place] [address] 17393- 7287 24 Apr, 2016 History of DVT (deep vein thrombosis) Z86.718 [place] [address] 99334- 5076 23 Apr, 2016 History of DVT (deep vein thrombosis) Z86.718 [place] [address] 10522- 6795 15 Apr, 2016 History of DVT (deep vein thrombosis) Z86.718 [place] [address] 80624- 9178 14 Apr, 2016 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 [place] [address] 05330- 2561 Mar, [place] [address] 28800- 8922 Mar, 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 [place] [address] 53598- 2591 Mar, care home (current) use of anticoagulants Z79.01 and Hypertriglyceridemia E78.1 [place] [address] 94777- 1920 Feb, 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 [place] [address] 80679 2546 Feb, care home (current) use of anticoagulants Z79.01 [place] [address] 77627- 2106 Feb, 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 [place] [address] 09560- 3582 Dec, [facility] [address] [place] [id number] [place] [address] 48387- 2850 Nov, [place] [address] 91407- 2245 Nov, History of DVT (deep vein thrombosis) Z86.718 ; Tremulousness R25.1 ; Generalized anxiety disorder F41.1 ; Peripheral edema R60.9 and Hypertriglyceridemia E78.1 [place] [address] 23251- 4186 Oct, History of DVT (deep vein thrombosis) Z86.718 [place] [address] 00139- 2458 Oct, [place] [address] 09703- 6466 Sep, History of DVT (deep vein thrombosis) Z86.718 [place] [address] [place] [id number] [place] [address] 35781- 9212 Sep, care home (current) use of anticoagulants Z79.01 [place] [address] [place] [id number] [place] [address] 57110- 1959 July, [place] [address] 26824- 1447 July, 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 [place] [address] [place] [id number] [place] [address] 31351- 6793 July, 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 [place] [address] [place] [id number] [place] [address] 18468- 9319 Jun, 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 [facility] [address] [place] [id number] [place] [address] 53849 -4648 Jun, Coccyx pain M53.3 ; Encounter for therapeutic drug level monitoring Z51.81 and terminal supervisor current use 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.01 [facility] [address] [place] [id number] [place] [address] 70743- 1391 May, Abnormal mammogram R92.8 [facility] [address] [place] [id number] [place] [address] 17625 -6106 May, [facility] [address] [place] [id number] [place] [address] 20941 -6888 May, Acute vaginitis N76.0 and Encounter for other screening for malignant neoplasm of breast Z12.39 [place] [address] [place] [id number] [place] [address] 51500- 6250 Apr, [place] [address] 72345- 3554 Apr, [place] [address] [place] [id number] [place] [address] 22582- 2286 Apr, Peripheral edema R60.9 [place] [address] [place] [id number] [place] [address] 65840- 0053 Apr, care home (current) use of anticoagulants Z79.01 [place] [address] [place] [id number] [place] [address] 31517- 5222 Apr, Peripheral edema R60.9 and 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 [place] [address] [place] [id number] [place] [address] 47181- 4939 Apr, 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 [place] [address] [place] [id number] [place] [address] 03431- 2546 Apr, [place] [address] [place] [id number] [place] [address] 74331- 2546 Apr, 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 [place] [address] [place] [id number] [place] [address] 46805- 2546 Apr, Peripheral edema R60.9 [place] [address] [place] [address] 51892- 9154 Mar, care home (current) use of anticoagulants Z79.01 [place] [address] [place] [id number] [place] [address] 50869- 7050 Mar, care home (current) use of anticoagulants Z79.01 and Hypertriglyceridemia E78.1 [place] [address] 25304- 1194 Mar, 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 [place] [address] [place] [id number] [place] [address] 09206- 2545 Mar, care home (current) use of anticoagulants Z79.01 [place] [address] [place] [id number] [place] [address] 64989- 4635 Mar, [place] [address] [place] [id number] [place] [address] 55986- 3712 Mar, 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 ; Hypertriglyceridemia E78.1 ; Personal history of venous thrombosis and embolism Z86.718 and Lump R22.9 [place] [address] [place] [id number] [place] [address] 05527- 3612 Mar, Personal history of venous thrombosis and embolism Z86.718 [place] [address] [place] [id number] [place] [address] 41532- 6056 Mar, Personal history of venous thrombosis and embolism Z86.718 [place] [address] [place] [id number] [place] [address] 24330- 0566 Mar, [place] [address] [place] [id number] [place] [address] 71170- 9051 Dec, Personal history of venous thrombosis and embolism Z86.718 [place] [address] [place] [id number] [place] [address] 71979- 9530 Dec, Personal history of venous thrombosis and embolism V12.51 [place] [address] [address]- 1627 28 Nov, 2014 Personal history of venous thrombosis and embolism V12.51 [facility] [address] [facility] [id number] 2366 Nov, Personal history of venous thrombosis and embolism V12.51 [facility] [address] [facility] [id number] [address]- 6136 17 Nov, 2014 Personal history of venous thrombosis and embolism V12.51 [facility] [address] [facility] [id number], [place] [address]- 9697 Nov, Personal history of venous thrombosis and embolism V12.51 [facility] [address] [facility] [id number], [place] [address]- 0804 Nov, [facility] [address], [place] [address]- 3149 Oct, Dysuria 788.1 [facility] [address] [place] [id number], [place] [address]- 7507 Oct, Personal history of venous thrombosis and embolism V12.51 [facility] [address], [place] [address]- 7878 Oct, [facility] [address], [place] [address]- 3420 Oct, Personal history of venous thrombosis and embolism V12.51 [facility] [address] [facility] [id number], [place] [address]- 7345 Sep, Personal history of venous thrombosis and embolism V12.51 [facility] [address] [facility] [id number], [place] [address]- 7611 Sep, Personal history of venous thrombosis and embolism V12.51 [facility] [address] [facility] [id number][place] [address]64[place] 7066 Aug, Personal history of venous thrombosis and embolism V12.51 [facility] [address], [place] [address]- 1333 Aug, Personal history of venous thrombosis and embolism V12.51 [facility] [address] [facility] [id number]- 8125 15 Aug, 2014 Personal history of venous thrombosis and embolism V12.51 [facility] [address] [facility] [id number], [place] [address]- 6676 July, Generalized anxiety disorder 300.02 ; Abdominal pain, left lower quadrant 789.04 and Personal history of venous thrombosis and embolism V12.51 [facility] [address] [facility] [id number], [place] [address]- 5501 Jun, [facility] [address] [facility] [id number] [place] [address] 37335- 0344 Jun, [facility] [address] 0638 May, [facility] [address], [place] [address]- 1760 May, [facility] [address], [place] [address]- 9486 May, [facility] [address], [place] [address]- 5542 May, [facility] [address], [place] [address]- 5779 May, [facility] [address] [place] [id number] 2282 May, [facility] [address] [place] [id number] 4653 May, [facility] [address], [place] [address]- 6001 May, [facility] [address] [place] [id number], [place] [address]- 5778 Apr, [facility] [address], [place] [address]- 7484 Apr, [facility] [address] [id number] [place] [address]- 1927 Apr, [facility] [place] [facility] [address] [id number] [place] [address]- 2626 Apr, [facility] [place] [facility] [address] [id number] [place] [address]- 5376 Apr, [facility] [place] [facility] [address] [id number] [place] [address]- 0210 Mar, [facility] [place] [facility] [address] [id number] [place] [address]- 7770 Mar, [facility] [place] [facility] [address] [id number] [place] [address]- 0528 Mar, [facility] [address] [id number] [place] [address]- 1920 Mar, [facility] [address] [id number] [place] [address]- 2754 Mar, [facility] [address] [id number] [place] [address]- 8229 Mar, [facility] [address] [facility] [id number] [place] [address]- 1186 Feb, [facility] [place] [facility] [address] [id number] [place] [address]- 9408 Feb, [facility] [place] [facility] [address] [id number] [place] [address]- 1906 Feb, [facility] [place] [facility] [address] [id number] [place] 3444 Feb, [facility] [place] [facility] [address] [id number] [place] 4564 Feb, [facility] [place] [facility] [address] [facility] [id number] [place] [address]- 3412 Feb, [facility] [place] [facility] [address] [id number] [place] 7987 Feb, [facility] [place] [facility] [address] [id number] [place] 0689 Feb, [facility] [place] [facility] [address] [id number] [place] 2590 Feb, [facility] [place] [facility] [address] [id number] [place] [address]- 8769 Feb, [facility] [place] [facility] [address] [id number] [place] [address]- 0519 Jan, [facility] [place] [facility] [address] [id number] [place] [address]- 6744 Jan, [facility] [place] [facility] [address] [id number] [place] [address]- 5367 Jan, [facility] [place] [facility] [address] [id number] [place] [address]- 6118 Jan, [facility] [place] [facility] [address] [id number] [place] [address]- 4070 Jan, [facility] [place] [facility] [address] [id number] [place] [address]- 1643 Jan, [facility] [place] [facility] [address] [id number] [place] [address]- 2521 Jan, [facility] [place] [facility] [address] [id number] [place] [address]- 5439 Jan, [facility] [place] [facility] [address] [id number] [place] [address]- 2803 Jan, [facility] [place] [facility] [address] [id number] [place] [address]- 0352 Jan, [facility] [place] [facility] [address] [id number] [place] [address]- 1217 Dec, [facility] [place] [facility] [address] [id number] [place] [address]- 6270 Dec, [facility] [place] [facility] [address] [id number] [place] [address]- 9681 Dec, [facility] [place] [facility] [address] [id number] [place] [address]- 9524 Dec, [facility] [place] [facility] [address] [id number] [place] [address]- 9949 Dec, [facility] [place] [facility] [address] [id number] [place] [address]- 0567 Dec, [facility] [place] [facility] [address] [id number] [place] [address]- 9843 Dec, [facility] [place] [facility] [address] [id number] [place] [address]- 7650 Dec, [facility] [place] [facility] [address] [id number] [place] [address]- 1349 Dec, [facility] [place] [facility] [address] [id number], [place] [address]- 9721 Dec, [facility] [place] [facility] [address] [id number] [place] [address]- 3641 Dec, [facility] [place] [facility] [address] [id number], [place] [address]- 8446 Dec, [facility] [place] [facility] [address] [id number], [place] [address] Dec, [facility] [place] [facility] [address] [id number], [place] [address] Dec, [facility] [place] [facility] [address] [id number] [place] [address] Dec, [facility] [place] [facility] [address] [id number], [place] [address] Nov, [facility] [place] [facility] [address] [id number], [place] [address] Nov, [facility] [place] [facility] [address] [id number] [place] [address] 26 Sep, 2013 [facility] [place] [facility] [address] [id number] [place] [address] 26 Sep, 2013 [facility] [place] [facility] [address] [id number] [place] [address] 24 Sep, 2013 [facility] [place] [facility] [address] [id number] [place] [address]46 24 Sep, 2013 [facility] [place] [facility] [address] [id number] [place] [address] 2546 23 Sep, 2013 [facility] [place] [facility] [address] [id number] [place] [address] 2544 23 Sep, 2013 [facility] [place] [facility] [address] [id number] [place] [address] 18 Sep, 2013 [facility] [place] [facility] [address] [id number] [place] [address] 18 Nov, 2013 [facility] [place] [facility] [address] [id number] [place] [address] 17 Sep, 2013 [facility] [place] [facility] [address] [id number] [place] [address] 254 17 Sep, 2013 [facility] [place] [facility] [address] [id number] [place] [address] 2542 11 Nov, 2013 [facility] [place] [facility] [address] [id number] [place] [address] 2546 11 Sep, 2013 [facility] [place] [facility] [address] [id number] [place] [address] 10 Sep, 2013 [facility] [place] [facility] [address] [id number] [place] [address] 2546 10 Sep, 2013 [facility] [place] [facility] [address] [id number] [place] [address] 08 Sep, 2013 [facility] [place] [facility] [address] [id number] [place] [address] 25[address] Nov, [facility] [place] [facility] [address] [id number] [place] [address] Sep, [facility] [place] [facility] [address] [id number] [place] [address] Sep, [facility] [place] [facility] [address] [id number] [place] [address] Sep, [facility] [place] [facility] [address] [id number] [place] [address] Sep, [facility] [place] [facility] [address] [id number] [place] [address] Sep, [facility] [place] [facility] [address] [id number] [place] [address] Sep, [facility] [place] [facility] [address] [id number] [place] [address] Aug, [facility] [place] [facility] [address] [id number] [place] [address]2 Aug, [facility] [place] [facility] [address] [id number] [place] [address] 1011 Aug, [facility] [place] [facility] [address] [id number] [place] [address] 8035 Aug, [facility] [place] [facility] [address] [id number] [place] [address] 0890 Aug, [facility] [place] [facility] [address] [id number] [place] [address] 0965 Aug, [facility] [place] [facility] [address] [id number] [place] [address] 7189 Aug, [facility] [place] [facility] [address] [id number] [place] [address] 5912 Aug, [facility] [place] [facility] [address] [id number] [place] [address] 9187 Aug, [facility] [place] [facility] [address] [id number] [place] [address] 4128 Aug, [facility] [place] [facility] [address] [id number] [place] [address] 4273 Aug, [facility] [place] [facility] [address] [id number] [place] [address] 1892 July, [facility] [place] [facility] [address] [id number] [place] [address] 4101 July, [facility] [place] [facility] [address] [id number] [place] [address]- 6766 Jun, [facility] [place] [facility] [address] [id number] [place] [address] 9718 Jun, [facility] [place] [facility] [address] [id number] [place] [address]- 7448 Jun, [facility] [place] [facility] [address] [id number] [place] [address]- 0017 Jun, [facility] [place] [facility] [address] [id number] [place] [address]- 8904 Jun, [facility] [place] [facility] [address] [id number] [place] [address] 3615 Jun, [facility] [place] [facility] [address] [id number] [place] [address]- 3967 Jun, [facility] [place] [facility] [address] [id number] [place] [address]- 6488 Jun, [facility] [place] [facility] [address] [id number] [place] [address]- 1801 Jun, [facility] [place] [facility] [address] [id number] [place] [address]- 5696 Jun, [facility] [place] [facility] [address] [id number] [place] [address]- 7247 Jun, [facility] [place] [facility] [address] [id number] [place] [address]- 8803 Jun, [facility] [place] [facility] [address] [id number] [place] [address] 9973 May, [facility] [place] [facility] [address] [id number] [place] [address]- 4796 May, [facility] [place] [facility] [address] [id number] [place] [address] 2206 May, [facility] [place] [facility] [address] [id number] [place] [address]- 7006 May, [facility] [place] [facility] [address] [id number] [place] [address] 3857 May, [facility] [place] [facility] [address] [id number] [place] [address]- 1249 May, [facility] [place] [facility] [address] [id number] [place] [address]- 6945 May, [facility] [place] [facility] [address] [id number] [place] [address]- 3239 May, [facility] [place] [facility] [address] [id number] [place] [address]- 7042 May, [facility] [place] [facility] [address] [id number] [place] [address]- 4860 May, [facility] [place] [facility] [address] [id number] [place] [address]- 4741 May, [facility] [place] [facility] [address] [id number] [place] [address]- 3934 May, [facility] [place] [facility] [address] [id number] [place] [address]- 8059 Apr, [facility] [place] [facility] [address] [id number] [place] [address]- 9299 Apr, [facility] [place] [facility] [address] [id number] [place] [address]- 4113 Apr, [facility] [place] [facility] [address] [id number] [place] [address]- 6231 Apr, [facility] [place] [facility] [address] [id number] [place] [address]- 9406 Apr, [facility] [place] [facility] [address] [id number] [place] [address]- 7626 Apr, [facility] [place] [facility] [address] [facility] [id number] [place] [address]- 5796 Apr, [facility] [place] [facility] [address] [id number] [place] [address]- 4664 Apr, [facility] [place] [facility] [address] [id number] [place] [address]- 4876 Apr, [facility] [place] [facility] [address] [facility] [id number] [place] [address]- 8264 Apr, [facility] [place] [facility] [address] [facility] [id number] [place] [address]- 5226 Apr, [facility] [place] [facility] [address] [facility] [id number] [place] [address]- 3240 Apr, [facility] [place] [facility] [address] [facility] [id number] [place] [address]- 0837 Apr, [facility] [place] [facility] [address] [facility] [id number] [place] [address]- 5294 Apr, [facility] [place] [facility] [address] [facility] [id number] [place] [address]- 8250 Apr, [facility] [place] [facility] [address] [facility] [id number] [place] [address]- 0155 Apr, [facility] [place] [facility] [address] [facility] [id number] [place] [address]- 6966 Apr, [facility] [place] [facility] [address] [facility] [id number] [place] [address]- 5188 Jan, [facility] [place] [facility] [address] [facility] [id number] [place] [address]- 1622 Jan, [facility] [place] [facility] [address] [id number] [place] [address]- 8071 08 Jan, 2013 [facility] [place] [facility] [address] [id number] [place] [address]- 2025 Jan, [facility] [place] [facility] [address] [id number] [place] [address]- 0794 Jan, [facility] [place] [facility] [address] [id number] [place] [address]- 6121 Jan, [facility] [place] [facility] [address] [id number] [place] [address]- 5812 Jan, [facility] [place] [facility] [address] [id number] [place] [address]- 3774 Dec, [facility] [place] [facility] [address] [id number] [place] [address]- 2379 Dec, [facility] [place] [facility] [address] [id number] [place] [address]- 1856 Dec, [facility] [place] [facility] [address] [id number] [place] [address]- 8629 Nov, [facility] [place] [facility] [address] [id number] [place] [address]- 1643 Nov, [facility] [place] [facility] [address] [id number] [place] [address]- 9411 05 Nov, 2012 [facility] [place] [facility] [address] [id number], [place] [address] 1296 Nov, [facility] [place] [facility] [address] [id number] [place] [address]- 9303 Oct, [facility] [place] [facility] [address] [id number] [place] [address]- 9616 Oct, [facility] [place] [facility] [address] [id number], [place] [address]- 4920 Oct, [facility] [place] [facility] [address] [id number], [place] [address]- 0413 Oct, [facility] [address] [id number] [place] [address]- 7461 Oct, [facility] [place] [facility] [address] [id number] [place] [address]- 8946 Sep, [facility] [place] [facility] [address] [id number] [place] [address]- 2439 Sep, [facility] [place] [facility] [address] [id number] [place] [address]- 4098 Sep, [facility] [place] [facility] [address] [id number] [place] [address]- 9879 Sep, [facility] [place] [facility] [address] [id number] [place] [address]- 8365 Sep, [facility] [address] [id number] [place] [address]- 8586 Sep, [facility] [place] [facility] [address] [id number] [place] [address]- 5202 Sep, [facility] [place] [facility] [address] [id number] [place] [address]- 0786 Aug, [facility] [place] [facility] [address] [id number] [place] [address]- 6741 Aug, [facility] [place] [facility] [address] [id number] [place] [address]- 3391 July, [facility] [place] [facility] [address] [id number] [place] [address]- 6165 Jun, [facility] [place] [facility] [address] [id number] [place] [address]- 4464 Jun, [facility] [place] [facility] [address] [id number] [place] [address]- 8288 Jun, [facility] [place] [facility] [address] [id number] [place] [address]- 6166 Apr, [facility] [place] [facility] [address] [id number] [place] [address]- 6631 Apr, [facility] [address] [id number] [place] [address]- 4190 Apr, [facility] [place] [facility] [address] [id number] [place] [address]- 4847 Mar, [facility] [place] [facility] [address] [id number] [place] [address]- 3764 Mar, [facility] [place] [facility] [address] [id number] [place] [address]- 6559 2012 [facility] [place] [facility] [address] [id number] [place] [address]- 4055 Mar, [facility] [place] [facility] [address] [id number] [place] [address]- 0551 Mar, [facility] [address] [id number] [place] [address]- 7751 14 Feb, 2012 [facility] [address] [id number] [place] [address]- 1198 14 Feb, 2012 [facility] [place] [facility] [address] [id number] [place] [address]- 6613 13 Jan, 2012 [facility] [place] [facility] [address] [id number] [place] [address]- 1987 13 Jan, 2012 [facility] [place] [facility] [address] [id number] [place] [address]- 8340 13 Jan, 2012 [facility] [place] [facility] [address] [id number] [place] [address]- 6047 13 Jan, 2012 [facility] [place] [facility] [address] [id number] [place] [address]- 5317 07 Jan, 2012 [facility] [place] [facility] [address] [id number] [place] [address]- 6677 07 Jan, 2012 [facility] [place] [facility] [address] [id number] [place] [address]- 4955 Jan, [facility] [place] [facility] [address] [id number] [place] [address]- 2989 Dec, [facility] [place] [facility] [address] [id number] [place] [address]- 9576 Dec, [facility] [place] [facility] [address] [facility] [id number] [place] [address]- 1113 Dec, [facility] [place] [facility] [address] [id number] [place] [address]- 9807 Dec, [facility] [place] [facility] [address] [id number] [place] [address]- 4187 Dec, [facility] [place] [facility] [address] [id number] [place] [address]- 5305 Dec, [facility] [place] [facility] [address] [id number] [place] [address]- 7501 Dec, [facility] [place] [facility] [address] [id number], [place] [address]- 6592 Dec, [facility] [place] [facility] [address] [id number] [place] [address]- 5423 Dec, [facility] [place] [facility] [address] [id number], [place] [address]- 7996 Dec, [facility] [place] [facility] [address] [id number], [place] [address]- 0742 Oct, [facility] [place] [facility] [address] [id number], [place] [address]- 1111 Oct, [facility] [place] [facility] [address] [id number] [place] [address]- 8646 Aug, [facility] [place] [facility] [address] [id number], [place] [address]- 5467 Aug, [facility] [place] [facility] [address] [facility] [id number], [place] [address] 2546 July, [facility] [place] [facility] [address] [id number] [place] [address] 2549 17 Jun, 2011 [facility] [address] [id number] [place] [address]- 9714 Jun, [facility] [address] [id number] [place] [address]- 0816 May, [facility] [address] [id number] [place] [address]- 8476 Apr, [facility] [address] [id number] [place] [address]- 2546 Apr, [facility] [address] [id number] [place] [address]- 4192 Mar, [facility] [address] [id number] [place] [address]- 8996 Mar, [facility] [address] [id number] [place] [address]- 2359 Feb, [facility] [address] [id number] [place] [address]- 8218 15 Feb, 2011 [facility] [address] [facility] [id number] [place] [address]- 9567 Feb, [facility] [address] [facility] [id number] [place] [address]234 13 Feb, 2011 [facility] [address] [id number] [place] [address]- 4926 Jan, [facility] [address] [id number] [place] [address]- 2545 17 Dec, 2010 [facility] [address] [id number] [place] [address]- 8116 08 Feb, 2010 [facility] [place] [facility] [address] [id number] [place] [address]- 2546 Feb, [facility] [address] [id number] [place] [address]- 7513 Feb, [facility] [address] [id number], [place] [address]- 4005 Feb, [facility] [id number] [address]69 Dec, [facility] [address] [id number], [place] [address]- 2966 Dec, [facility] [id number], [place] [address]- 9765 Oct, [facility] [id number] 9112 Jun, [facility] [id number] [address]402 Feb, [facility] [id number], [place] [address]- 0081 Feb, [facility] [id number], [place] [address]- 0818 Feb, [facility] [address] [id number], [place] [address]- 3436 Dec, IMMUNIZATIONS No Known Immunizations SOCIAL HISTORY Never Assessed REASON FOR VISIT Update Mammo hx--ADaviedRN PLAN OF CARE VITAL SIGNS MEDICATIONS Unknown Medications RESULTS No Results PROCEDURES No Known procedures INSTRUCTIONS MEDICATIONS ADMINISTERED No Known Medications MEDICAL (GENERAL) HISTORY Type Description Date Medical History obesity Medical History Hematologic disorder factor clotting problem Medical History DVT's Surgical History Lap Band 10/2012 Surgical History section 1985, 1987 Surgical History cholecystectomy Surgical History [place] Filter 06/2009 Surgical History Left leg exploratory surgery r/t clot 1987 Hospitalization History Ruptured Ovarian Cyst with abd bleeding 11/2009
--- OUTSIDE RECORDS SUMMARY | 2018-08-02 09:17 | XMS REPORT ---
Author ASHLEY Sears [employer] Address Unknown Phone Unavailable Care Team Providers Care History Professor Name Role Phone ASHLEY BRUNO CP Unavailable Allergies, Adverse Reactions, Alerts Substance Reaction Event Type N.K.D.A. 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 Assessment Lump R22.9 Active Assessment Personal history of venous thrombosis and embolism Z86.718 Active Problem Generalized anxiety disorder F41.1 Active Problem Hypertriglyceridemia E78.1 Active Problem History of DVT (deep vein thrombosis) Z86.718 Active Problem Presence of IVC filter Z95.828 Active Problem long-term (current) 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 Z79.01 Active Problem Pelvic pain R10.2 Active Problem 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 Active Medications Medication Code System Code Instructions Start Date End Date Status Dosage Coumadin [facility] [address]-79 5 MG Orally Once a day 1 tablet Lexapro [facility] 97942403041 10 MG Orally Once a day 1 tablet Hydrochlorothiazide [facility] 40797893933 50 MG TAKE ONE TABLET BY MOUTH DAILY Procedures Procedure Coding System Code Date Office Visit, Est Pt., Level 3 CPT-4 65142 Apr 11, 2015 PROTHROMBIN TIME CPT-4 09469 Apr 11, 2015 Vital Signs Date/Time: Apr 11, 2015 Temperature 99.4 F Weight 189.1 lbs Height 64 in BMI 32.46 Index Blood Pressure Diastolic 74 mmHg Blood Pressure Systolic 122 mmHg Cardiac Monitoring Heart Rate 84 bpm Results Name Result Date Reference Range Unit Abnormality Flag INR (IN HOUSE) ----Exp date 20150411 ----INR 1.3 20150411 1.10 - 3.30 ----PREVIOUS INR 1.2 20150411 ----CURRENT COUMADIN DOSE 5mg qd [id number] ----Lot # [id number] Summary Purpose [employer] Submission
--- OUTSIDE RECORDS SUMMARY | 2018-08-02 09:18 | XMS REPORT ---
Author Author KIANA ASHLEY [facility] Address [address] [place] [address] Care Team Providers Care Pedal Assembler Name Role Phone GILSON BRUNOHANY Unavailable PROBLEMS Type Condition ICD9-CM Code VRA02-FU Code Onset Dates Condition Status SNOMED Code Problem Hypertriglyceridemia E78.1 Active 162860689 Problem Generalized anxiety disorder F41.1 Active 550378856 Problem prison (current) use of anticoagulants Z79.01 Active 627290034 Problem Factor V Leiden D68.51 Active 249972361 Problem History of DVT (deep vein thrombosis) Z86.718 Active 388331080 Problem Excessive daytime sleepiness G47.19 Active 500471053087 Problem Gastroesophageal reflux disease, esophagitis presence not specified K21.9 Active 622901129 Problem Pelvic pain R10.2 Active 70195139 Problem 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 Active 122280579 Problem Presence of IVC filter Z95.828 Active 477869019 Problem Peripheral edema R60.9 Active 768210015 ALLERGIES No Information ENCOUNTERS Encounter Location Date Diagnosis [place] [address] 24228- 4631 Jun, [place] [address] 13564- 8267 May, Subacromial bursitis of left shoulder joint M75.52 [place] [address] 78814- 0542 May, [place] [address] 72215- 8888 May, Hypertriglyceridemia E78.1 ; prison (current) use of anticoagulants Z79.01 and Excessive daytime sleepiness G47.19 [place] [address] 57840- 1599 May, History of DVT (deep vein thrombosis) Z86.718 ; Generalized anxiety disorder F41.1 ; Hypertriglyceridemia E78.1 ; 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.01 ; Subacromial bursitis of left shoulder joint M75.52 and Excessive daytime sleepiness G47.19 [place] [address] [place] [id number] [place] [address] 95679 2546 May, [place] [address] 48967 2546 May, 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.01 [place] [address] 86713 2546 23 Apr, 2017 prison (current) use of anticoagulants Z79.01 [place] [address] [place] [id number] [place] [address] 31620 2546 Apr, 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.01 [place] [address] [place] [id number] [place] [address] 01070 2546 Apr, 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.01 [place] [address] [place] [id number] [place] [address] 84707 2546 16 Apr, 2017 [place] [address] [place] [id number] [place] [address] 87939 2546 16 Apr, 2017 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.01 [place] [address] [place] [id number] [place] [address] 47833 2546 13 Apr, 2017 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.01 [place] [address] [place] [id number] [place] [address] 00707 2546 Apr, 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.01 [place] [address] [place] [id number] [place] [address] 72153 2546 Apr, prison (current) use of anticoagulants Z79.01 [facility] [id number] [place] [address] 49235- 1688 07 Apr, 2017 prison (current) use of anticoagulants Z79.01 [facility] [address] [place] [id number] [place] [address] 07264 2546 Apr, 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.01 [place] [address] [place] [id number] [place] [address] 57229- 7066 Mar, 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.01 [place] [address] [place] [id number] [place] [address] 43122- 0566 Mar, [place] [address] 13601- 2786 Mar, 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.01 [facility] [address] [id number] Jan, Dental examination Z01.20 [facility] [address] [id number] Jan, [place] [address] 84759- 8268 Jan, prison (current) use of anticoagulants Z79.01 [place] [address] [place] [id number] [place] [address] 22856- 6821 17 Jan, 2017 History of DVT (deep vein thrombosis) Z86.718 [place] [address] [place] [id number] [place] [address] 17982- 1357 07 Jan, 2017 Generalized anxiety disorder F41.1 and Peripheral edema R60.9 [place] [address] 12084- 8617 Nov, History of DVT (deep vein thrombosis) Z86.718 [place] [address] [place] [id number] [place] [address] 97233- 1436 Nov, 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.01 [facility] [address] [address] Nov, Acute non-recurrent maxillary sinusitis J01.00 [facility] [address] [place] [id number] [place] [address] 67342- 7450 Oct, prison (current) use of anticoagulants Z79.01 [facility] [address] [place] [id number] [place] [address] 48688- 9756 Oct, Personal history of venous thrombosis and embolism Z86.718 [place] [address] [place] [id number] [place] [address] 15079- 4956 Sep, [place] [address] [place] [id number] [place] [address] 39503- 9272 Sep, Personal history of venous thrombosis and embolism Z86.718 [place] [address] [place] [id number] [place] [address] 28495- 2479 Sep, prison (current) use of anticoagulants Z79.01 [place] [address] [place] [id number] [place] [address] 39135- 2241 Sep, prison (current) use of anticoagulants Z79.01 [place] [address] [place] [id number] [place] [address] 74069- 4927 Sep, Generalized anxiety disorder F41.1 and History of DVT (deep vein thrombosis) Z86.718 [place] [address] [place] [id number] [place] [address] 73081- 7699 Aug, History of DVT (deep vein thrombosis) Z86.718 ; Generalized anxiety disorder F41.1 ; prison (current) use of anticoagulants Z79.01 ; Pelvic pain R10.2 ; Hypertriglyceridemia E78.1 ; Excessive daytime sleepiness G47.19 ; Colon cancer screening Z12.11 ; Screening for breast cancer Z12.39 ; Peripheral edema R60.9 and Gastroesophageal reflux disease, esophagitis presence not specified K21.9 [facility] [address] [place] [id number] [place] [address] 53237- 6979 Aug, [facility] [address] [address]- 2393 July, [facility] [address] [place] [id number] [place] [address] 21881- 9967 July, History of DVT (deep vein thrombosis) Z86.718 [facility] [address] [place] [id number] [place] [address] 44492- 3958 Jun, Generalized anxiety disorder F41.1 [facility] [address] [place] [id number] [place] [address] 50172- 6114 Jun, History of DVT (deep vein thrombosis) Z86.718 [place] [address] [place] [id number] [place] [address] 52496- 3451 Jun, History of DVT (deep vein thrombosis) Z86.718 [place] [address] [place] [id number] [place] [address] 83497- 4816 Jun, History of DVT (deep vein thrombosis) Z86.718 [place] [address] [place] [address] 01925- 2466 Jun, History of DVT (deep vein thrombosis) Z86.718 [place] [address] [place] [id number] [place] [address] 42362- 2275 May, History of DVT (deep vein thrombosis) Z86.718 [place] [address] [place] [id number] [place] [address] 44477- 8955 May, prison (current) use of anticoagulants Z79.01 [place] [address] [place] [address] 75595- 7389 May, prison (current) use of anticoagulants Z79.01 [place] [address] [place] [address] 30815- 3961 May, History of DVT (deep vein thrombosis) Z86.718 [facility] [address] [place] [address] 09869 -2581 27 Apr, 2016 Bacterial conjunctivitis of left eye H10.9 and H/O motion sickness Z87.898 [place] [address] 51928- 6896 24 Apr, 2016 History of DVT (deep vein thrombosis) Z86.718 [place] [address] [place] [id number] [place] [address] 82283- 4426 23 Apr, 2016 History of DVT (deep vein thrombosis) Z86.718 [place] [address] 88679- 9113 15 Apr, 2016 History of DVT (deep vein thrombosis) Z86.718 [place] [address] 75875- 6715 14 Apr, 2016 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.01 [place] [address] 69549- 6729 Mar, [place] [address] 19296- 0893 Mar, 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.01 [place] [address] 51210- 5639 Mar, Hypertriglyceridemia E78.1 and 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.01 [place] [address] [place] [id number] [place] [address] 49799- 5322 Feb, 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.01 [place] [address] [place] [address] [place] [address] 91011 2546 Feb, prison (current) use of anticoagulants Z79.01 [place] [address] 35617- 6584 Feb, 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.01 [place] [address] 48407- 5953 Dec, [facility] [address] [place] [id number] [place] [address] 98305- 4214 Nov, [place] [address] 02354- 7216 Nov, History of DVT (deep vein thrombosis) Z86.718 ; Tremulousness R25.1 ; Generalized anxiety disorder F41.1 ; Peripheral edema R60.9 and Hypertriglyceridemia E78.1 [place] [address] 70173- 7060 Oct, History of DVT (deep vein thrombosis) Z86.718 [place] [address] 59184- 7841 Oct, [place] [address] 59820- 7778 Sep, History of DVT (deep vein thrombosis) Z86.718 [place] [address] [place] [address] [place] [address] 70491- 2036 Sep, prison (current) use of anticoagulants Z79.01 [place] [address] [place] [id number] [place] [address] 16566- 2945 July, [place] [address] 65482- 8109 July, 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.01 [place] [address] [place] [address] [place] [address] 41875- 5297 July, 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.01 [place] [address] [place] [address] [place] [address] 28985- 6998 Jun, 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.01 [facility] [address] [place] [address] [place] [address] 90362 -8815 Jun, Coccyx pain M53.3 ; Encounter for therapeutic drug level monitoring Z51.81 and oil heaterman current use 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.01 [facility] [address] [place] [address] [place] [address] 69740- 8645 May, Abnormal mammogram R92.8 [facility] [address] [place] [id number] [place] [address] 93817 -6280 May, [facility] [address] [place] [id number] [place] [address] 86880 -0146 May, Acute vaginitis N76.0 and Encounter for other screening for malignant neoplasm of breast Z12.39 [place] [address] [place] [address] [place] [address] 63146- 2268 Apr, [place] [address] 34991- 5933 Apr, [place] [address] [place] [address] [place] [address] 23389- 3242 Apr, Peripheral edema R60.9 [place] [address] [place] [address] [place] [address] 73164- 0468 Apr, prison (current) use of anticoagulants Z79.01 [place] [address] [place] [address] [place] [address] 28948- 3039 Apr, Peripheral edema R60.9 and 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.01 [place] [address] [place] [address] [place] [address] 27556- 5975 Apr, 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.01 [place] [address] [place] [address] [place] [address] 21804- 2546 Apr, [place] [address] [place] [address] [place] [address] 25560- 2546 Apr, 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.01 [place] [address] [place] [address] [place] [address] 45753- 2546 Apr, Peripheral edema R60.9 [place] [address] [place] [address] 99184- 4828 Mar, prison (current) use of anticoagulants Z79.01 [place] [address] [place] [address] [place] [address] 80628- 6459 Mar, prison (current) use of anticoagulants Z79.01 and Hypertriglyceridemia E78.1 [place] [address] 10717- 6833 Mar, 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.01 [place] [address] [place] [address] [place] [address] 18674- 3596 Mar, prison (current) use of anticoagulants Z79.01 [place] [address] [place] [address] [place] [address] 10809- 4354 Mar, [place] [address] [place] [address] [place] [address] 49684- 8642 Mar, 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.01 ; Hypertriglyceridemia E78.1 ; Personal history of venous thrombosis and embolism Z86.718 and Lump R22.9 [place] [address] [place] [address] [place] [address] 73925- 7763 Mar, Personal history of venous thrombosis and embolism Z86.718 [place] [address] [place] [address] [place] [address] 69769- 9564 Mar, Personal history of venous thrombosis and embolism Z86.718 [place] [address] [place] [address] [place] [address] 24804- 1450 Mar, [place] [address] [place] [address] [place] [address] 97559- 3219 Dec, Personal history of venous thrombosis and embolism Z86.718 [place] [address] [place] [address] [place] [address] 93701- 6289 Dec, Personal history of venous thrombosis and embolism V12.51 [place] [address] [address]- 6649 28 Nov, 2014 Personal history of venous thrombosis and embolism V12.51 [facility] [address] [facility] [id number]- 7106 Nov, Personal history of venous thrombosis and embolism V12.51 [facility] [address] [facility] [id number], [place] [address]- 4246 17 Nov, 2014 Personal history of venous thrombosis and embolism V12.51 [facility] [address] [facility] [id number], [place] [address]- 0542 Nov, Personal history of venous thrombosis and embolism V12.51 [facility] [address] [facility] [id number], [place] [address]- 6514 Nov, [facility] [address], [place] [address]- 9609 Oct, Dysuria 788.1 [facility] [address] [place] [id number], [place] [address]- 6942 Oct, Personal history of venous thrombosis and embolism V12.51 [facility] [address], [place] [address]- 2580 Oct, [facility] [address], [place] [address]- 2637 Oct, Personal history of venous thrombosis and embolism V12.51 [facility] [address] [facility] [id number], [place] [address]- 1918 Sep, Personal history of venous thrombosis and embolism V12.51 [facility] [address] [facility] [id number], [place] [address]- 1199 Sep, Personal history of venous thrombosis and embolism V12.51 [facility] [address] [facility] [id number] [address]- 9017 Aug, Personal history of venous thrombosis and embolism V12.51 [facility] [address], [place] [address]- 4971 Aug, Personal history of venous thrombosis and embolism V12.51 [facility] [address] [facility] [id number]- 8216 15 Aug, 2014 Personal history of venous thrombosis and embolism V12.51 [facility] [address] [facility] [id number], [place] [address]- 6672 July, Generalized anxiety disorder 300.02 ; Abdominal pain, left lower quadrant 789.04 and Personal history of venous thrombosis and embolism V12.51 [facility] [address] [facility] [id number], [place] [address]- 3462 Jun, [facility] [address] [facility] [id number] [place] [address] 50869- 3007 Jun, [facility] [address] 9800 May, [facility] [address], [place] [address]- 2456 May, [facility] [address], [place] [address]- 4195 May, [facility] [address], [place] [address]- 7436 May, [facility] [address], [place] [address]- 3733 May, [facility] [address] [place] [id number] 8447 May, [facility] [address] [place] [id number]- 2132 May, [facility] [address], [place] [address]- 4128 May, [facility] [address] [place] [id number], [place] [address]- 1818 Apr, [facility] [address], [place] [address]- 0000 Apr, [facility] [address] [id number] [place] [address]- 1773 Apr, [facility] [place] [facility] [address] [id number] [place] [address]- 8766 Apr, [facility] [place] [facility] [address] [id number] [place] [address]- 7486 Apr, [facility] [place] [facility] [address] [id number] [place] [address]- 5650 Mar, [facility] [place] [facility] [address] [id number] [place] [address]- 8918 Mar, [facility] [place] [facility] [address] [id number] [place] [address]- 1835 Mar, [facility] [address] [id number] [place] [address]- 2596 Mar, [facility] [address] [id number] [place] [address]- 7143 Mar, [facility] [address] [id number] [place] [address]- 4392 Mar, [facility] [address] [facility] [id number] [place] [address]- 3368 Feb, [facility] [place] [facility] [address] [id number] [place] [address]- 5445 Feb, [facility] [place] [facility] [address] [id number] [place] [address]- 2561 Feb, [facility] [place] [facility] [address] [id number] [place] 3847 Feb, [facility] [place] [facility] [address] [id number] [place] 2178 Feb, [facility] [place] [facility] [address] [facility] [id number] [place] [address]- 1419 Feb, [facility] [place] [facility] [address] [id number] [place] 5591 Feb, [facility] [place] [facility] [address] [id number] [place] 2755 Feb, [facility] [place] [facility] [address] [id number] [place] 5652 Feb, [facility] [place] [facility] [address] [id number] [place] [address]- 9421 Feb, [facility] [place] [facility] [address] [id number] [place] [address]- 4632 Jan, [facility] [place] [facility] [address] [id number] [place] [address]- 4628 Jan, [facility] [place] [facility] [address] [id number] [place] [address]- 9178 Jan, [facility] [place] [facility] [address] [id number] [place] [address]- 5096 Jan, [facility] [place] [facility] [address] [id number] [place] [address]- 1762 Jan, [facility] [place] [facility] [address] [id number] [place] [address]- 5189 Jan, [facility] [place] [facility] [address] [id number] [place] [address]- 3208 Jan, [facility] [place] [facility] [address] [id number] [place] [address]- 9192 Jan, [facility] [place] [facility] [address] [id number] [place] [address]- 0677 Jan, [facility] [place] [facility] [address] [id number] [place] [address]- 0234 Jan, [facility] [place] [facility] [address] [id number] [place] [address]- 7196 Dec, [facility] [place] [facility] [address] [id number] [place] [address]- 6656 Dec, [facility] [place] [facility] [address] [id number] [place] [address]- 4779 Dec, [facility] [place] [facility] [address] [id number] [place] [address]- 1465 Dec, [facility] [place] [facility] [address] [id number] [place] [address]- 2676 Dec, [facility] [place] [facility] [address] [id number] [place] [address]- 6022 Dec, [facility] [place] [facility] [address] [id number] [place] [address]- 8812 Dec, [facility] [place] [facility] [address] [id number] [place] [address]- 6631 Dec, [facility] [place] [facility] [address] [id number] [place] [address]- 0155 Dec, [facility] [place] [facility] [address] [id number], [place] [address]- 0621 Dec, [facility] [place] [facility] [address] [id number] [place] [address]- 8813 Dec, [facility] [place] [facility] [address] [id number], [place] [address] Dec, [facility] [place] [facility] [address] [id number], [place] [address] Dec, [facility] [place] [facility] [address] [id number], [place] [address] Dec, [facility] [place] [facility] [address] [id number] [place] [address] Dec, [facility] [place] [facility] [address] [id number], [place] [address] Nov, [facility] [place] [facility] [address] [id number], [place] [address] Nov, [facility] [place] [facility] [address] [id number] [place] [address] 26 Sep, 2013 [facility] [place] [facility] [address] [id number] [place] [address] 26 Sep, 2013 [facility] [place] [facility] [address] [id number] [place] [address] 24 Sep, 2013 [facility] [place] [facility] [address] [id number] [place] [address] 2546 24 Sep, 2013 [facility] [place] [facility] [address] [id number] [place] [address] 23 Sep, 2013 [facility] [place] [facility] [address] [id number] [place] [address] 23 Sep, 2013 [facility] [place] [facility] [address] [id number] [place] [address] 18 Sep, 2013 [facility] [place] [facility] [address] [id number] [place] [address] 18 Nov, 2013 [facility] [place] [facility] [address] [id number] [place] [address] 17 Sep, 2013 [facility] [place] [facility] [address] [id number] [place] [address] 17 Sep, 2013 [facility] [place] [facility] [address] [id number] [place] [address] 2545 11 Nov, 2013 [facility] [place] [facility] [address] [id number] [place] [address] 2546 11 Sep, 2013 [facility] [place] [facility] [address] [id number] [place] [address] 10 Sep, 2013 [facility] [place] [facility] [address] [id number] [place] [address]46 10 Sep, 2013 [facility] [place] [facility] [address] [id number] [place] [address] 08 Sep, 2013 [facility] [place] [facility] [address] [id number] [place] [address] Nov, [facility] [place] [facility] [address] [id number] [place] [address] Sep, [facility] [place] [facility] [address] [id number] [place] [address] Sep, [facility] [place] [facility] [address] [id number] [place] [address] Sep, [facility] [place] [facility] [address] [id number] [place] [address] Sep, [facility] [place] [facility] [address] [id number] [place] [address] Sep, [facility] [place] [facility] [address] [id number] [place] [address] Sep, [facility] [place] [facility] [address] [id number] [place] [address] Aug, [facility] [place] [facility] [address] [id number] [place] [address] Aug, [facility] [place] [facility] [address] [id number] [place] [address] Aug, [facility] [place] [facility] [address] [id number] [place] [address] Aug, [facility] [place] [facility] [address] [id number] [place] [address] Aug, [facility] [place] [facility] [address] [id number] [place] [address] Aug, [facility] [place] [facility] [address] [id number] [place] [address] Aug, [facility] [place] [facility] [address] [id number] [place] [address] Aug, [facility] [place] [facility] [address] [id number] [place] [address] Aug, [facility] [place] [facility] [address] [id number] [place] [address] 24[address] Aug, [facility] [place] [facility] [address] [id number] [place] [address] 6[address] Aug, [facility] [place] [facility] [address] [id number] [place] [address] July, [facility] [place] [facility] [address] [id number] [place] [address] 7068 July, [facility] [place] [facility] [address] [id number] [place] [address]- 6[address] Jun, [facility] [place] [facility] [address] [id number] [place] [address]- 8[address] Jun, [facility] [place] [facility] [address] [id number] [place] [address]- 6276 Jun, [facility] [place] [facility] [address] [id number] [place] [address] 7659 Jun, [facility] [place] [facility] [address] [id number] [place] [address] Jun, [facility] [place] [facility] [address] [id number] [place] [address]- 3523 Jun, [facility] [place] [facility] [address] [id number] [place] [address]- [address] Jun, [facility] [place] [facility] [address] [id number] [place] [address]- 0622 Jun, [facility] [place] [facility] [address] [id number] [place] [address]- 7691 Jun, [facility] [place] [facility] [address] [id number] [place] [address]- 5892 Jun, [facility] [place] [facility] [address] [id number] [place] [address]- 1338 Jun, [facility] [place] [facility] [address] [id number] [place] [address]- 2662 Jun, [facility] [place] [facility] [address] [id number] [place] [address]- 2341 May, [facility] [place] [facility] [address] [id number] [place] [address]- 8666 May, [facility] [place] [facility] [address] [id number] [place] [address]- 05[address] May, [facility] [place] [facility] [address] [id number] [place] [address]- 6516 May, [facility] [place] [facility] [address] [id number] [place] [address]- 3399 May, [facility] [place] [facility] [address] [id number] [place] [address]- 9669 May, [facility] [place] [facility] [address] [id number] [place] [address]- 9083 May, [facility] [place] [facility] [address] [id number] [place] [address]- 9432 May, [facility] [place] [facility] [address] [id number] [place] [address]- 6131 May, [facility] [place] [facility] [address] [id number] [place] [address]- 7072 May, [facility] [place] [facility] [address] [id number] [place] [address]- 5529 May, [facility] [place] [facility] [address] [id number] [place] [address]- 2048 May, [facility] [place] [facility] [address] [id number] [place] [address]- 3759 Apr, [facility] [place] [facility] [address] [id number] [place] [address]- 1345 Apr, [facility] [place] [facility] [address] [id number] [place] [address]- 7965 Apr, [facility] [place] [facility] [address] [id number] [place] [address]- 5860 Apr, [facility] [place] [facility] [address] [id number] [place] [address]- 6746 Apr, [facility] [place] [facility] [address] [id number] [place] [address]- 1776 Apr, [facility] [place] [facility] [address] [facility] [id number] [place] [address]- 1976 Apr, [facility] [place] [facility] [address] [id number] [place] [address]- 4219 Apr, [facility] [place] [facility] [address] [id number] [place] [address]- 6173 Apr, [facility] [place] [facility] [address] [facility] [id number] [place] [address]- 8949 Apr, [facility] [place] [facility] [address] [facility] [id number] [place] [address]- 5777 Apr, [facility] [place] [facility] [address] [facility] [id number] [place] [address]- 1607 Apr, [facility] [place] [facility] [address] [facility] [id number] [place] [address]- 1192 Apr, [facility] [place] [facility] [address] [facility] [id number] [place] [address]- 8615 Apr, [facility] [place] [facility] [address] [facility] [id number] [place] [address]- 7317 Apr, [facility] [place] [facility] [address] [facility] [id number] [place] [address]- 2038 Apr, [facility] [place] [facility] [address] [facility] [id number] [place] [address]- 8250 Apr, [facility] [place] [facility] [address] [facility] [id number] [place] [address]- 6121 Jan, [facility] [place] [facility] [address] [facility] [id number] [place] [address]- 7846 Jan, [facility] [place] [facility] [address] [id number] [place] [address]- 8751 08 Jan, 2013 [facility] [place] [facility] [address] [id number] [place] [address]- 6759 Jan, [facility] [place] [facility] [address] [id number] [place] [address]- 2631 Jan, [facility] [place] [facility] [address] [id number] [place] [address]- 2836 Jan, [facility] [place] [facility] [address] [id number] [place] [address]- 2052 Jan, [facility] [place] [facility] [address] [id number] [place] [address]- 4300 Dec, [facility] [place] [facility] [address] [id number] [place] [address]- 3150 Dec, [facility] [place] [facility] [address] [id number] [place] [address]- 5449 Dec, [facility] [place] [facility] [address] [id number] [place] [address]- 2549 Nov, [facility] [place] [facility] [address] [id number] [place] [address]- 1871 Nov, [facility] [place] [facility] [address] [id number] [place] [address]- 8827 05 Nov, 2012 [facility] [place] [facility] [address] [id number], [place] [address] Nov, [facility] [place] [facility] [address] [id number] [place] [address]- 1315 Oct, [facility] [place] [facility] [address] [id number] [place] [address]- 3908 Oct, [facility] [place] [facility] [address] [id number], [place] [address]- 9815 Oct, [facility] [place] [facility] [address] [id number], [place] [address]- 2824 Oct, [facility] [address] [id number] [place] [address]- 0505 Oct, [facility] [place] [facility] [address] [id number] [place] [address]- 4933 Sep, [facility] [place] [facility] [address] [id number] [place] [address]- 2808 Sep, [facility] [place] [facility] [address] [id number] [place] [address]- 0515 Sep, [facility] [place] [facility] [address] [id number] [place] [address]- 5732 Sep, [facility] [place] [facility] [address] [id number] [place] [address]- 7314 Sep, [facility] [address] [id number] [place] [address]- 5332 Sep, [facility] [place] [facility] [address] [id number] [place] [address]- 8552 Sep, [facility] [place] [facility] [address] [id number] [place] [address]- 4526 Aug, [facility] [place] [facility] [address] [id number] [place] [address]- 7383 Aug, [facility] [place] [facility] [address] [id number] [place] [address]- 6593 July, [facility] [place] [facility] [address] [id number] [place] [address]- 6902 Jun, [facility] [place] [facility] [address] [id number] [place] [address]- 3357 Jun, [facility] [place] [facility] [address] [id number] [place] [address]- 1899 Jun, [facility] [place] [facility] [address] [id number] [place] [address]- 0997 Apr, [facility] [place] [facility] [address] [id number] [place] [address]- 0893 Apr, [facility] [address] [id number] [place] [address]- 3202 Apr, [facility] [place] [facility] [address] [id number] [place] [address]- 9459 Mar, [facility] [place] [facility] [address] [id number] [place] [address]- 7975 Mar, [facility] [place] [facility] [address] [id number] [place] [address]- 1474 2012 [facility] [place] [facility] [address] [id number] [place] [address]- 5978 Mar, [facility] [place] [facility] [address] [id number] [place] [address]- 0971 Mar, [facility] [address] [id number] [place] [address]- 6164 14 Feb, 2012 [facility] [address] [id number] [place] [address]- 2744 14 Feb, 2012 [facility] [place] [facility] [address] [id number] [place] [address]- 4085 13 Jan, 2012 [facility] [place] [facility] [address] [id number] [place] [address]- 4471 13 Jan, 2012 [facility] [place] [facility] [address] [id number] [place] [address]- 6183 13 Jan, 2012 [facility] [place] [facility] [address] [id number] [place] [address]- 3775 13 Jan, 2012 [facility] [place] [facility] [address] [id number] [place] [address]- 7262 07 Jan, 2012 [facility] [place] [facility] [address] [id number] [place] [address]- 7253 07 Jan, 2012 [facility] [place] [facility] [address] [id number] [place] [address]- 1577 Jan, [facility] [place] [facility] [address] [id number] [place] [address]- 7533 Dec, [facility] [place] [facility] [address] [id number] [place] [address]- 5956 Dec, [facility] [place] [facility] [address] [facility] [id number] [place] [address]- 1181 Dec, [facility] [place] [facility] [address] [id number] [place] [address]- 9441 Dec, [facility] [place] [facility] [address] [id number] [place] [address]- 3399 Dec, [facility] [place] [facility] [address] [id number] [place] [address]- 6829 Dec, [facility] [place] [facility] [address] [id number] [place] [address]- 9397 Dec, [facility] [place] [facility] [address] [id number], [place] [address]- 5727 Dec, [facility] [place] [facility] [address] [id number] [place] [address]- 4210 Dec, [facility] [place] [facility] [address] [id number], [place] [address]- 6185 Dec, [facility] [place] [facility] [address] [id number], [place] [address]- 6530 Oct, [facility] [place] [facility] [address] [id number], [place] [address]- 4055 Oct, [facility] [place] [facility] [address] [id number] [place] [address]- 1308 Aug, [facility] [place] [facility] [address] [id number], [place] [address]- 6926 Aug, [facility] [place] [facility] [address] [facility] [id number], [place] [address] 2546 July, [facility] [place] [facility] [address] [id number] [place] [address] 2545 17 Jun, 2011 [facility] [address] [id number] [place] [address]- 4540 Jun, [facility] [address] [id number] [place] [address]- 9406 May, [facility] [address] [id number] [place] [address]- 9316 Apr, [facility] [address] [id number] [place] [address]- 2546 Apr, [facility] [address] [id number] [place] [address]- 1455 Mar, [facility] [address] [id number] [place] [address]- 9146 Mar, [facility] [address] [id number] [place] [address]- 5598 Feb, [facility] [address] [id number] [place] [address]- 8605 15 Feb, 2011 [facility] [address] [facility] [id number] [place] [address]- 5083 Feb, [facility] [address] [facility] [id number] [place] 1149 13 Feb, 2011 [facility] [address] [id number] [place] [address]- 5956 Jan, [facility] [address] [id number] [place] [address]- 2542 17 Dec, 2010 [facility] [address] [id number] [place] [address]- 0985 08 Feb, 2010 [facility] [place] [facility] [address] [id number] [place] [address]- 2546 Feb, [facility] [address] [id number] [place] [address]- 1301 Feb, [facility] [address] [id number], [place] [address] 6648 Feb, [facility] [id number], [place] [address]- 7278 Dec, [facility] [address] [id number], [place] [address]- 2268 Dec, [facility] [id number], [place] [address]- 3103 Oct, [facility] [id number], [place] [address]- 9810 Jun, [facility] [id number], [place] [address]- 8727 Feb, [facility] [id number], [place] [address]- 2753 Feb, [facility] [id number], [place] [address]- 1060 Feb, [facility] [address] [id number], [place] [address]- 1394 Dec, IMMUNIZATIONS No Known Immunizations SOCIAL HISTORY [...]
--- OUTSIDE RECORDS SUMMARY | 2018-08-02 09:18 | XMS REPORT ---
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 Active 851265365 Problem Factor V Leiden D68.51 Active 935039581 Problem History of DVT (deep vein thrombosis) Z86.718 Active 869817030 Problem Excessive daytime sleepiness G47.19 Active 511902473035 Problem Gastroesophageal reflux disease, esophagitis presence not specified K21.9 Active 237523546 Problem Pelvic pain R10.2 Active 14374410 Problem 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 Active 072964220 Problem Presence of IVC filter Z95.828 Active 267420329 Problem Peripheral edema R60.9 Active 119215757 ALLERGIES Unknown Allergies SOCIAL HISTORY No smoking Hx information available PLAN OF CARE VITAL SIGNS MEDICATIONS Unknown Medications RESULTS No Results PROCEDURES No Known procedures IMMUNIZATIONS No Known Immunizations
--- OUTSIDE RECORDS SUMMARY | 2018-08-02 09:20 | XMS REPORT | Continuity of Care Document ---
Author Organization Unknown Address Unknown Allergies Active Description Code Type Severity Reaction Onset Reported/Identified Relationship to Patient Clinical Status Yes No Known Drug Allergies [id number] Drug Allergy Unknown N/A 07/04/2009 Medications There is no data. Problems Date Dx Coded Attending Type Code Diagnosis Diagnosed By 02/26/1525 MATTHEW VIEYRA Ot M25.512 PAIN IN LEFT SHOULDER 02/26/1525 MATTHEW VIEYRA Ot Z47.89 ENCOUNTER FOR OTHER ORTHOPEDIC AFTERCARE 01/17/2008 AFTAB PEREIRA MD V74.5 Screening Examination For Venereal Disease 01/17/2008 V74.5 Screening Examination For Venereal Disease 01/17/2008 GAGANDEEP FLORES APRN V74.5 Screening Examination For Venereal Disease 01/17/2008 AFTAB PEREIRA MD V74.5 Screening Examination For Venereal Disease 01/17/2008 SOCRATES TALAVERA MD V74.5 Screening Examination For Venereal Disease 01/17/2008 V74.5 Screening Examination For Venereal Disease 01/17/2008 V74.5 Screening Examination For Venereal Disease 01/17/2008 V74.5 Screening Examination For Venereal Disease 01/17/2008 SOCRATES TALAVERA MD V74.5 Screening Examination For Venereal Disease 01/17/2008 SOCRATES TALAVERA MD V74.5 Screening Examination For Venereal Disease 01/17/2008 SOCRATES TALAVERA MD V74.5 Screening Examination For Venereal Disease 01/17/2008 JAMI ROSAS APRN V74.5 Screening Examination For Venereal Disease 01/17/2008 SOCRATES TALAVERA MD V74.5 Screening Examination For Venereal Disease 01/17/2008 SANDEEP PETTY DO V74.5 Screening Examination For Venereal Disease 01/17/2008 JAMI ROSAS APRN V74.5 Screening Examination For Venereal Disease 01/17/2008 SANDEEP PETTY DO K V74.5 Screening Examination For Venereal Disease 01/17/2008 PETTY DOPARISA K V74.5 Screening Examination For Venereal Disease 01/17/2008 ASHLEY BRUNO MD V74.5 Screening Examination For Venereal Disease 01/17/2008 LOVE GENAO APRN V74.5 Screening Examination For Venereal Disease 01/17/2008 SANDEEP PETTY DO K V74.5 Screening Examination For Venereal Disease 01/17/2008 ASHLEY BRUON MD V74.5 Screening Examination For Venereal Disease 01/17/2008 ASHLEY BRUNO MD V74.5 Screening Examination For Venereal Disease 01/17/2008 ASHLEY BRUNO MD V74.5 Screening Examination For Venereal Disease 01/17/2008 ASHLEY BRUNO MD V74.5 Screening Examination For Venereal Disease 01/17/2008 ASHLEY BRUNO MD V74.5 Screening Examination For Venereal Disease 01/17/2008 ASHLEY BRUNO MD V74.5 Screening Examination For Venereal Disease 01/17/2008 ASHLEY BRUNO MD V74.5 Screening Examination For Venereal Disease 01/17/2008 ASHLEY BRUNO MD V74.5 Screening Examination For Venereal Disease 01/17/2008 JAMI ROSAS APRN A V74.5 Screening Examination For Venereal Disease 01/17/2008 ASHLEY BRUNO MD V74.5 Screening Examination For Venereal Disease 01/17/2008 ASHLEY BRUNO MD V74.5 Screening Examination For Venereal Disease 01/17/2008 ASHLEY BRUNO MD V74.5 Screening Examination For Venereal Disease 01/17/2008 ASHLEY BRUNO MD V74.5 Screening Examination For Venereal Disease 01/17/2008 ASHLEY BRUNO MD V74.5 Screening Examination For Venereal Disease 01/17/2008 ASHLEY BRUNO MD V74.5 Screening Examination For Venereal Disease 03/01/2008 AFTAB PEREIRA MD V72.31 Corporate Administrator Exam, Routine 03/01/2008 V72.31 Corporate Administrator Exam, Routine 03/01/2008 GAGANDEEP FLORES APRN V72.31 Corporate Administrator Exam, Routine 03/01/2008 RANDALL MONZON, AFTAB V72.31 Corporate Administrator Exam, Routine 03/01/2008 SADAF MONZON, SOCRATES Portillo V72.31 Corporate Administrator Exam, Routine 03/01/2008 V72.31 Corporate Administrator Exam, Routine 03/01/2008 V72.31 Corporate Administrator Exam, Routine 03/01/2008 V72.31 Corporate Administrator Exam, Routine 03/01/2008 SADAF MONZON, SOCRATES Portillo V72.31 Corporate Administrator Exam, Routine 03/01/2008 SADAF MONZON, SOCRATES Portillo V72.31 Corporate Administrator Exam, Routine 03/01/2008 SADAF MONZON, SOCRATES Portillo V72.31 Corporate Administrator Exam, Routine 03/01/2008 RALPH LLANES, JAMI A V72.31 Corporate Administrator Exam, Routine 03/01/2008 SADAF MONZON, SOCRATES Portillo V72.31 Corporate Administrator Exam, Routine 03/01/2008 PARIS PETTY DOA K V72.31 Corporate Administrator Exam, Routine 03/01/2008 RALPH LLANES, JAMI A V72.31 Corporate Administrator Exam, Routine 03/01/2008 MALINDA BURT SANDEEP K V72.31 Corporate Administrator Exam, Routine 03/01/2008 [place] PETTY DOA K V72.31 Corporate Administrator Exam, Routine 03/01/2008 KIANA MONZON, ASHLEY N V72.31 Corporate Administrator Exam, Routine 03/01/2008 LOVE GENAO APRN V72.31 Corporate Administrator Exam, Routine 03/01/2008 [place] PETTY DOA K V72.31 Corporate Administrator Exam, Routine 03/01/2008 KIANA MONZON, ASHLEY Lee V72.31 Corporate Administrator Exam, Routine 03/01/2008 ASHLEY BRUNO MD V72.31 Corporate Administrator Exam, Routine 03/01/2008 KIANA MONZON, ASHLEY N V72.31 Corporate Administrator Exam, Routine 03/01/2008 ASHLEY BRUNO MD V72.31 Corporate Administrator Exam, Routine 03/01/2008 ASHLEY BRUNO MD V72.31 Corporate Administrator Exam, Routine 03/01/2008 ASHLEY BRUNO MD N V72.31 Corporate Administrator Exam, Routine 03/01/2008 ASHLEY BRUNO MD V72.31 Corporate Administrator Exam, Routine 03/01/2008 KIANA MONZON, ASHLEY N V72.31 Corporate Administrator Exam, Routine 03/01/2008 JAMI ROSAS APRN A V72.31 Corporate Administrator Exam, Routine 03/01/2008 KIANA MONZON, ASHLEY N V72.31 Corporate Administrator Exam, Routine 03/01/2008 KIANA MONZON, ASHLEY N V72.31 Corporate Administrator Exam, Routine 03/01/2008 KIANA MONZON, ASHLEY Lee V72.31 Corporate Administrator Exam, Routine 03/01/2008 KIANA MONZON, ASHLEY N V72.31 Corporate Administrator Exam, Routine 03/01/2008 KIANA MONZON, ASHLEY N V72.31 Corporate Administrator Exam, Routine 03/01/2008 KIANA MONZON, ASHLEY Lee V72.31 Corporate Administrator Exam, Routine 03/16/2008 RANDALL MONZON, AFTAB V05.3 HEPATITIS VIRAL/ALL 03/16/2008 V05.3 HEPATITIS VIRAL/ALL 03/16/2008 GAGANDEEP FLORES APRN V05.3 HEPATITIS VIRAL/ALL 03/16/2008 AFTAB PEREIRA MD V05.3 HEPATITIS VIRAL/ALL 03/16/2008 SOCRATES TALAVERA MD V05.3 HEPATITIS VIRAL/ALL 03/16/2008 V05.3 HEPATITIS VIRAL/ALL 03/16/2008 V05.3 HEPATITIS VIRAL/ALL 03/16/2008 V05.3 HEPATITIS VIRAL/ALL 03/16/2008 SADAF MONZON, SOCRATES Portillo V05.3 HEPATITIS VIRAL/ALL 03/16/2008 SADAF MONZON, SOCRATES M V05.3 HEPATITIS VIRAL/ALL 03/16/2008 SADAF MONZON, SOCRATES M V05.3 HEPATITIS VIRAL/ALL 03/16/2008 JAMI ROSAS APRN A V05.3 HEPATITIS VIRAL/ALL 03/16/2008 SADAF MOZNON, SOCRATES Portillo V05.3 HEPATITIS VIRAL/ALL 03/16/2008 PARIS PETTY DOA K V05.3 HEPATITIS VIRAL/ALL 03/16/2008 JAMI ROSAS APRN A V05.3 HEPATITIS VIRAL/ALL 03/16/2008 PETTY DOPARISA K V05.3 HEPATITIS VIRAL/ALL 03/16/2008 PETTY [place] BURTA K V05.3 HEPATITIS VIRAL/ALL 03/16/2008 KIANA MONZON, ASHLEY N V05.3 HEPATITIS VIRAL/ALL 03/16/2008 CHADWICK COOLER ROOM WORKER, LOVE R V05.3 HEPATITIS VIRAL/ALL 03/16/2008 MALINDA BURT SANDEEP K V05.3 HEPATITIS VIRAL/ALL 03/16/2008 KIANA MONZON, ASHLEY N V05.3 HEPATITIS VIRAL/ALL 03/16/2008 KIANA MONZON, ASHLEY N V05.3 HEPATITIS VIRAL/ALL 03/16/2008 KIANA MONZON, ASHLEY N V05.3 HEPATITIS VIRAL/ALL 03/16/2008 KIANA MONZON, ASHLEY N V05.3 HEPATITIS VIRAL/ALL 03/16/2008 KIANA MONZON, ASHLEY N V05.3 HEPATITIS VIRAL/ALL 03/16/2008 KIANA MONZON, ASHLEY N V05.3 HEPATITIS VIRAL/ALL 03/16/2008 KIANA MONZON, ASHLEY N V05.3 HEPATITIS VIRAL/ALL 03/16/2008 KIANA MONZON, ASHLEY N V05.3 HEPATITIS VIRAL/ALL 03/16/2008 RLAPH LLANES, JAMI A V05.3 HEPATITIS VIRAL/ALL 03/16/2008 KIANA MONZON, ASHLEY N V05.3 HEPATITIS VIRAL/ALL 03/16/2008 KIANA MONZON, ASHLEY N V05.3 HEPATITIS VIRAL/ALL 03/16/2008 KIANA MONZON, ASHLEY N V05.3 HEPATITIS VIRAL/ALL 03/16/2008 KIANA MONZON, ASHLEY N V05.3 HEPATITIS VIRAL/ALL 03/16/2008 KIANA MONZON, ASHLEY N V05.3 HEPATITIS VIRAL/ALL 03/16/2008 KIANA MONZON, ASHLEY N V05.3 HEPATITIS VIRAL/ALL 07/26/2008 AFTAB PEREIRA MD 466.0 Acute Bronchitis 07/26/2008 466.0 Acute Bronchitis 07/26/2008 SANDRA COOLER ROOM WORKER, GAGANDEEP R 466.0 Acute Bronchitis 07/26/2008 AFTAB PEREIRA MD 466.0 Acute Bronchitis 07/26/2008 SOCRATES TALAVERA MD 466.0 Acute Bronchitis 07/26/2008 466.0 Acute Bronchitis 07/26/2008 466.0 Acute Bronchitis 07/26/2008 466.0 Acute Bronchitis 07/26/2008 SOCRATES TALAVERA MD 466.0 Acute Bronchitis 07/26/2008 SADAF MD, SOCRATES M 466.0 Acute Bronchitis 07/26/2008 SOCRATES TALAVERA MD 466.0 Acute Bronchitis 07/26/2008 JAMI ROSAS APRN A 466.0 Acute Bronchitis 07/26/2008 SOCRATES TALAVERA MD M 466.0 Acute Bronchitis 07/26/2008 PETTY , SANDEEP K 466.0 Acute Bronchitis 07/26/2008 RALPH LLANES, JAMI A 466.0 Acute Bronchitis 07/26/2008 PETTY DO, SANDEEP K 466.0 Acute Bronchitis 07/26/2008 PETTY DO, SANDEEP K 466.0 Acute Bronchitis 07/26/2008 ASHLEY BRUNO MD N 466.0 Acute Bronchitis 07/26/2008 LOVE GENAO APRN 466.0 Acute Bronchitis 07/26/2008 PETTY , SANDEEP K 466.0 Acute Bronchitis 07/26/2008 ASHLEY BRUNO MD N 466.0 Acute Bronchitis 07/26/2008 ASHLEY BRUNO MD N 466.0 Acute Bronchitis 07/26/2008 ASHLEY BRUNO MD N 466.0 Acute Bronchitis 07/26/2008 ASHLEY BRUNO MD N 466.0 Acute Bronchitis 07/26/2008 ASHLEY BRUNO MD N 466.0 Acute Bronchitis 07/26/2008 ASHLEY BRUNO MD N 466.0 Acute Bronchitis 07/26/2008 ASHLEY BRUNO MD N 466.0 Acute Bronchitis 07/26/2008 ASHLEY BRUNO MD N 466.0 Acute Bronchitis 07/26/2008 RALPH LLANES, JAMI A 466.0 Acute Bronchitis 07/26/2008 ASHLEY BRUNO MD N 466.0 Acute Bronchitis 07/26/2008 ASHLEY BRUNO MD N 466.0 Acute Bronchitis 07/26/2008 ASHLEY BRUNO MD N 466.0 Acute Bronchitis 07/26/2008 ASHLEY BRUNO MD N 466.0 Acute Bronchitis 07/26/2008 ASHLEY BRUNO MD N 466.0 Acute Bronchitis 07/26/2008 ASHLEY BRUNO MD N 466.0 Acute Bronchitis 10/31/2008 AFTAB PEREIRA MD V58.69 MEDICATION HIGH RISK 10/31/2008 V58.69 MEDICATION HIGH RISK 10/31/2008 GAGANDEEP FLORES APRN V58.69 taking high-risk medication 10/31/2008 AFTAB PEREIRA MD V58.69 taking high-risk medication 10/31/2008 SOCRATES TALAVERA MD V58.69 taking high-risk medication 10/31/2008 V58.69 taking high- risk medication 10/31/2008 V58.69 taking high- risk medication 10/31/2008 V58.69 taking high- risk medication 10/31/2008 SOCRATES TALAVERA MD V58.69 taking high-risk medication 10/31/2008 SOCRATES TALAVERA MD V58.69 taking high-risk medication 10/31/2008 SOCRATES TALAVERA MD V58.69 taking high-risk medication 10/31/2008 JAMI ROSAS APRN V58.69 taking high-risk medication 10/31/2008 SOCRATES TALAVERA MD V58.69 taking high-risk medication 10/31/2008 PETTY [place] BUR[place] K V58.69 taking high-risk medication 10/31/2008 JAMI ROSAS APRN V58.69 taking high-risk medication 10/31/2008 PETTY DO SANDEEP K V58.69 taking high-risk medication 10/31/2008 PETTY DOPARISA K V58.69 taking high-risk medication 10/31/2008 ASHLEY BRUNO MD V58.69 taking high-risk medication 10/31/2008 LOVE GENAO APRN V58.69 taking high-risk medication 10/31/2008 PARIS PETTY DOA K V58.69 taking high-risk medication 10/31/2008 ASHLEY BRUNO MD V58.69 taking high-risk medication 10/31/2008 ASHLEY BRUNO MD V58.69 taking high-risk medication 10/31/2008 ASHLEY BRUNO MD V58.69 taking high-risk medication 10/31/2008 ASHLEY BRUNO MD V58.69 taking high-risk medication 10/31/2008 ASHLEY BRUNO MD V58.69 taking high-risk medication 10/31/2008 ASHLEY BRUNO MD V58.69 taking high-risk medication 10/31/2008 ASHLEY BRUNO MD V58.69 taking high-risk medication 10/31/2008 ASHLEY BRUNO MD V58.69 taking high-risk medication 10/31/2008 MARYAN ROSAS APRNIDI A V58.69 taking high-risk medication 10/31/2008 ASHLEY BRUNO MD V58.69 taking high-risk medication 10/31/2008 ASHLEY BRUNO MD V58.69 taking high-risk medication 10/31/2008 ASHLEY BRUNO MD V58.69 taking high-risk medication 10/31/2008 ASHLEY BRUNO MD V58.69 taking high-risk medication 10/31/2008 ASHLEY BRUNO MD V58.69 taking high-risk medication 10/31/2008 ASHLEY BRUNO MD V58.69 taking high-risk medication 02/27/2009 AFTAB PEREIRA MD 296.90 MOOD DISORDER 02/27/2009 AFTAB PEREIRA MD 719.49 PAIN IN JOINT, MULTIPLE SITES 02/27/2009 AFTAB PEREIRA MD 780.79 MALAISE AND FATIGUE 02/27/2009 296.90 MOOD DISORDER 02/27/2009 719.49 PAIN IN JOINT , MULTIPLE SITES 02/27/2009 780.79 MALAISE AND FATIGUE 02/27/2009 RICO FLORES APRNIA R 296.90 MOOD DISORDER 02/27/2009 GAGANDEEP FLORES APRN R 719.49 PAIN IN JOINT, MULTIPLE SITES 02/27/2009 RICO FLORES APRNIA R 780.79 MALAISE AND FATIGUE 02/27/2009 AFTAB PEREIRA MD 296.90 MOOD DISORDER 02/27/2009 AFTAB PEREIRA MD 719.49 PAIN IN JOINT, MULTIPLE SITES 02/27/2009 AFTAB PEREIRA MD 780.79 MALAISE AND FATIGUE 02/27/2009 SOCRATES TALAVERA MD 296.90 MOOD DISORDER 02/27/2009 SOCRATES TALAVERA MD 719.49 PAIN IN JOINT, MULTIPLE SITES 02/27/2009 SOCRATES TALAVERA MD 780.79 MALAISE AND FATIGUE 02/27/2009 296.90 MOOD DISORDER 02/27/2009 719.49 PAIN IN JOINT , MULTIPLE SITES 02/27/2009 780.79 MALAISE AND FATIGUE 02/27/2009 296.90 MOOD DISORDER 02/27/2009 719.49 PAIN IN JOINT , MULTIPLE SITES 02/27/2009 780.79 MALAISE AND FATIGUE 02/27/2009 296.90 MOOD DISORDER 02/27/2009 719.49 PAIN IN JOINT , MULTIPLE SITES 02/27/2009 780.79 MALAISE AND FATIGUE 02/27/2009 SOCRATES TALAVERA MD 296.90 MOOD DISORDER 02/27/2009 SOCRATES TALAVERA MD 719.49 PAIN IN JOINT, MULTIPLE SITES 02/27/2009 SOCRATES TALAVERA MD 780.79 MALAISE AND FATIGUE 02/27/2009 SOCRATES TALAVERA MD 296.90 MOOD DISORDER 02/27/2009 SOCRATES TALAVERA MD 719.49 PAIN IN JOINT, MULTIPLE SITES 02/27/2009 SOCRATES TALAVERA MD 780.79 MALAISE AND FATIGUE 02/27/2009 SOCRATES TALAVERA MD 296.90 MOOD DISORDER 02/27/2009 SOCRATES TALAVERA MD 719.49 PAIN IN JOINT, MULTIPLE SITES 02/27/2009 SOCRATES TALAVERA MD 780.79 MALAISE AND FATIGUE 02/27/2009 JAMI ROSAS APRN A 296.90 MOOD DISORDER 02/27/2009 JAMI ROSAS APRN A 719.49 PAIN IN JOINT, MULTIPLE SITES 02/27/2009 JAMI ROSAS APRN A 780.79 MALAISE AND FATIGUE 02/27/2009 SOCRATES TALAVERA MD 296.90 MOOD DISORDER 02/27/2009 SOCRATES TALAVERA MD 719.49 PAIN IN JOINT, MULTIPLE SITES 02/27/2009 SOCRATES TALAVERA MD 780.79 MALAISE AND FATIGUE 02/27/2009 PETTY DO, SANDEEP K 296.90 MOOD DISORDER 02/27/2009 PETTY DO, SANDEEP K 719.49 PAIN IN JOINT, MULTIPLE SITES 02/27/2009 PETTY DO, SANDEEP K 780.79 MALAISE AND FATIGUE 02/27/2009 RALPH LLANES JAMI A 296.90 MOOD DISORDER 02/27/2009 MARYAN ROSAS APRNIDI A 719.49 PAIN IN JOINT, MULTIPLE SITES 02/27/2009 RALPH LLANES JAMI A 780.79 MALAISE AND FATIGUE 02/27/2009 PETTY DO, SANDEEP K 296.90 MOOD DISORDER 02/27/2009 PETTY DO, SANDEEP K 719.49 PAIN IN JOINT, MULTIPLE SITES 02/27/2009 PETTY DO, SANDEEP K 780.79 MALAISE AND FATIGUE 02/27/2009 PETTY DO, SANDEEP K 296.90 MOOD DISORDER 02/27/2009 PETTY DO, SANDEEP K 719.49 PAIN IN JOINT, MULTIPLE SITES 02/27/2009 PETTY DO, SANDEEP K 780.79 MALAISE AND FATIGUE 02/27/2009 ASHLEY BRUNO MD N 296.90 MOOD DISORDER 02/27/2009 ASHLEY BRUNO MD 719.49 PAIN IN JOINT, MULTIPLE SITES 02/27/2009 ASHLEY BRUNO MD N 780.79 MALAISE AND FATIGUE 02/27/2009 CHADWICK COOLER ROOM WORKER, LVOE R 296.90 MOOD DISORDER 02/27/2009 CHADWICK COOLER ROOM WORKER, LOVE R 719.49 PAIN IN JOINT, MULTIPLE SITES 02/27/2009 CHADWICK COOLER ROOM WORKER, LOVE R 780.79 MALAISE AND FATIGUE 02/27/2009 PETTY DO, SANDEEP K 296.90 MOOD DISORDER 02/27/2009 PETTY DO, SANDEEP K 719.49 PAIN IN JOINT, MULTIPLE SITES 02/27/2009 PETTY DO, SANDEEP K 780.79 MALAISE AND FATIGUE 02/27/2009 ASHLEY BRUNO MD N 296.90 MOOD DISORDER 02/27/2009 ASHLEY BRUNO MD 719.49 PAIN IN JOINT, MULTIPLE SITES 02/27/2009 ASHLEY BRUNO MD N 780.79 MALAISE AND FATIGUE 02/27/2009 ASHLEY BRUNO MD N 296.90 MOOD DISORDER 02/27/2009 ASHLEY BRUNO MD 719.49 PAIN IN JOINT, MULTIPLE SITES 02/27/2009 ASHLEY BRUNO MD N 780.79 MALAISE AND FATIGUE 02/27/2009 ASHLEY BRUNO MD N 296.90 MOOD DISORDER 02/27/2009 ASHLEY BRUNO MD 719.49 PAIN IN JOINT, MULTIPLE SITES 02/27/2009 ASHLEY BRUNO MD N 780.79 MALAISE AND FATIGUE 02/27/2009 ASHLEY BRUNO MD N 296.90 MOOD DISORDER 02/27/2009 KIANA MD, ASHLEY N 719.49 PAIN IN JOINT, MULTIPLE SITES 02/27/2009 ASHLEY BRUNO MD N 780.79 MALAISE AND FATIGUE 02/27/2009 ELMO BRUNO MDY N 296.90 MOOD DISORDER 02/27/2009 ASHLEY BRUNO MD N 719.49 PAIN IN JOINT, MULTIPLE SITES 02/27/2009 ASHLEY BRUNO MD N 780.79 MALAISE AND FATIGUE 02/27/2009 ASHLEY BRUNO MD N 296.90 MOOD DISORDER 02/27/2009 ASHLEY BRUNO MD N 719.49 PAIN IN JOINT, MULTIPLE SITES 02/27/2009 ASHLEY BRUNO MD N 780.79 MALAISE AND FATIGUE 02/27/2009 ASHLEY BRUNO MD N 296.90 MOOD DISORDER 02/27/2009 ASHLEY BRUNO MD N 719.49 PAIN IN JOINT, MULTIPLE SITES 02/27/2009 ASHLEY BRUNO MD N 780.79 MALAISE AND FATIGUE 02/27/2009 ASHLEY BRUNO MD N 296.90 MOOD DISORDER 02/27/2009 ASHLEY BRUNO MD N 719.49 PAIN IN JOINT, MULTIPLE SITES 02/27/2009 ASHLEY BRUNO MD N 780.79 MALAISE AND FATIGUE 02/27/2009 JAMI ROSAS APRN A 296.90 MOOD DISORDER 02/27/2009 JAMI ROSAS APRN A 719.49 PAIN IN JOINT, MULTIPLE SITES 02/27/2009 JAMI ROSAS APRN A 780.79 MALAISE AND FATIGUE 02/27/2009 ASHLEY BRUNO MD N 296.90 MOOD DISORDER 02/27/2009 ASHLEY BRUNO MD N 719.49 PAIN IN JOINT, MULTIPLE SITES 02/27/2009 ELMO BRUNO MDY N 780.79 MALAISE AND FATIGUE 02/27/2009 ASHLEY BRUNO MD N 296.90 MOOD DISORDER 02/27/2009 ASHLEY BRUNO MD N 719.49 PAIN IN JOINT, MULTIPLE SITES 02/27/2009 ELMO BRUNO MDY N 780.79 MALAISE AND FATIGUE 02/27/2009 ASHLEY BRUNO MD N 296.90 MOOD DISORDER 02/27/2009 ASHLEY BRUNO MD N 719.49 PAIN IN JOINT, MULTIPLE SITES 02/27/2009 KIANA MONZON, ASHLEY N 780.79 MALAISE AND FATIGUE 02/27/2009 KIANA MONZON, ASHLEY N 296.90 MOOD DISORDER 02/27/2009 KIANA MONZON, ASHLEY N 719.49 PAIN IN JOINT, MULTIPLE SITES 02/27/2009 KIANA MONZON, ASHLEY N 780.79 MALAISE AND FATIGUE 02/27/2009 KIANA MONZON, ASHLEY N 296.90 MOOD DISORDER 02/27/2009 KIANA MONZON, ASHLEY N 719.49 PAIN IN JOINT, MULTIPLE SITES 02/27/2009 KIANA MONZON, ASHLEY N 780.79 MALAISE AND FATIGUE 02/27/2009 KIANA MONZON, ASHLEY N 296.90 MOOD DISORDER 02/27/2009 KIANA MONZON, ASHLEY N 719.49 PAIN IN JOINT, MULTIPLE SITES 02/27/2009 KIANA MONZON, ASHLEY N 780.79 MALAISE AND FATIGUE 04/06/2009 AFTAB PEREIRA MD 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 04/06/2009 AFTAB PEREIRA MD 388.70 Otalgia, Unspecified 04/06/2009 AFTAB PEREIRA MD 783.1 WEIGHT GAIN ABNORMAL 04/06/2009 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 04/06/2009 388.70 Otalgia, Unspecified 04/06/2009 783.1 WEIGHT GAIN ABNORMAL 04/06/2009 GAGANDEPE FLORES APRN R 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 04/06/2009 GAGANDEEP FLORES APRN R 388.70 Otalgia, Unspecified 04/06/2009 GAGANDEEP FLORES APRN R 783.1 WEIGHT GAIN ABNORMAL 04/06/2009 AFTAB PEREIRA MD 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 04/06/2009 AFTAB PEREIRA MD 388.70 Otalgia, Unspecified 04/06/2009 AFTAB PEREIRA MD 783.1 WEIGHT GAIN ABNORMAL 04/06/2009 SOCRATES TALAVERA MD 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 04/06/2009 SOCRATES TALAVERA MD 388.70 Otalgia, Unspecified 04/06/2009 SOCRATES TALAVERA MD 783.1 WEIGHT GAIN ABNORMAL 04/06/2009 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 04/06/2009 388.70 Otalgia, Unspecified 04/06/2009 783.1 WEIGHT GAIN ABNORMAL 04/06/2009 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 04/06/2009 388.70 Otalgia, Unspecified 04/06/2009 783.1 WEIGHT GAIN ABNORMAL 04/06/2009 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 04/06/2009 388.70 Otalgia, Unspecified 04/06/2009 783.1 WEIGHT GAIN ABNORMAL 04/06/2009 SOCRATES TALAVERA MD 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 04/06/2009 SOCRATES TALAVERA MD 388.70 Otalgia, Unspecified 04/06/2009 SOCRATES TALAVERA MD 783.1 WEIGHT GAIN ABNORMAL 04/06/2009 SOCRATES TALAVERA MD 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 04/06/2009 SOCRATES TALAVERA MD 388.70 Otalgia, Unspecified 04/06/2009 SOCRATES TALAVERA MD 783.1 WEIGHT GAIN ABNORMAL 04/06/2009 SOCRATES TALAVERA MD 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 04/06/2009 SOCRATES TALAVERA MD 388.70 Otalgia, Unspecified 04/06/2009 SOCRATES TALAVERA MD 783.1 WEIGHT GAIN ABNORMAL 04/06/2009 JAMI ROSAS APRN 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 04/06/2009 JAMI ROSAS APRN 388.70 Otalgia, Unspecified 04/06/2009 JAMI ROSAS APRN A 783.1 WEIGHT GAIN ABNORMAL 04/06/2009 SOCRATES TALAVERA MD 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 04/06/2009 SOCRATES TALAVERA MD 388.70 Otalgia, Unspecified 04/06/2009 SOCRATES TALAVERA MD 783.1 WEIGHT GAIN ABNORMAL 04/06/2009 SANDEEP PETTY DO 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 04/06/2009 SANDEEP PETTY DO 388.70 Otalgia, Unspecified 04/06/2009 PETTY DO, SANDEEP K 783.1 WEIGHT GAIN ABNORMAL 04/06/2009 RALPH COOLER ROOM WORKER, JAMI A 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 04/06/2009 RALPH COOLER ROOM WORKER, JAMI A 388.70 Otalgia, Unspecified 04/06/2009 RALPH COOLER ROOM WORKER, JAMI A 783.1 WEIGHT GAIN ABNORMAL 04/06/2009 PETTY DO, SANDEEP K 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 04/06/2009 PETTY DO, SANDEEP K 388.70 Otalgia, Unspecified 04/06/2009 PETTY DO, SANDEEP K 783.1 WEIGHT GAIN ABNORMAL 04/06/2009 PETTY DO, SANDEEP K 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 04/06/2009 PETTY DO, SANDEEP K 388.70 Otalgia, Unspecified 04/06/2009 PETTY DO, SANDEEP K 783.1 WEIGHT GAIN ABNORMAL 04/06/2009 ASHLEY BRUNO MD 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 04/06/2009 ASHLEY BRUNO MD 388.70 Otalgia, Unspecified 04/06/2009 ASHLEY BRUNO MD 783.1 WEIGHT GAIN ABNORMAL 04/06/2009 CHADWICK LLANES LOVE R 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 04/06/2009 CHADWICK LLANES LOVE R 388.70 Otalgia, Unspecified 04/06/2009 CHADWICK LLANES LOVE R 783.1 WEIGHT GAIN ABNORMAL 04/06/2009 PETTY DO, SANDEEP K 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 04/06/2009 PETTY DO, SANDEEP K 388.70 Otalgia, Unspecified 04/06/2009 PETTY DO, SANDEEP K 783.1 WEIGHT GAIN ABNORMAL 04/06/2009 ASHLEY BRUNO MD 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 04/06/2009 ASHLEY BRUNO MD 388.70 Otalgia, Unspecified 04/06/2009 ASHLEY BRUNO MD N 783.1 WEIGHT GAIN ABNORMAL 04/06/2009 ASHLEY BRUNO MD 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 04/06/2009 ASHLEY BRUNO MD 388.70 Otalgia, Unspecified 04/06/2009 ASHLEY BRUNO MD N 783.1 WEIGHT GAIN ABNORMAL 04/06/2009 ASHLEY BRUNO MD N 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 04/06/2009 ASHLEY BRUNO MD N 388.70 Otalgia, Unspecified 04/06/2009 ASHLEY BRUNO MD N 783.1 WEIGHT GAIN ABNORMAL 04/06/2009 ASHLEY BRUNO MD N 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 04/06/2009 ASHLEY BRUNO MD N 388.70 Otalgia, Unspecified 04/06/2009 ASHLEY BRUNO MD N 783.1 WEIGHT GAIN ABNORMAL 04/06/2009 ASHLEY BRUNO MD N 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 04/06/2009 ASHLEY BRUNO MD N 388.70 Otalgia, Unspecified 04/06/2009 ASHLEY BRUNO MD N 783.1 WEIGHT GAIN ABNORMAL 04/06/2009 ASHLEY BRUNO MD N 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 04/06/2009 ASHLEY BRUNO MD N 388.70 Otalgia, Unspecified 04/06/2009 ASHLEY BRUNO MD N 783.1 WEIGHT GAIN ABNORMAL 04/06/2009 ASHLEY BRUNO MD N 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 04/06/2009 ASHLEY BRUNO MD N 388.70 Otalgia, Unspecified 04/06/2009 ASHLEY BRUNO MD N 783.1 WEIGHT GAIN ABNORMAL 04/06/2009 ASHLEY BRUNO MD N 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 04/06/2009 ASHLEY BRUNO MD N 388.70 Otalgia, Unspecified 04/06/2009 ASHLEY BRUNO MD N 783.1 WEIGHT GAIN ABNORMAL 04/06/2009 JAMI ROSAS APRN A 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 04/06/2009 JAMI ROSAS APRN A 388.70 Otalgia, Unspecified 04/06/2009 JAMI ROSAS APRN A 783.1 WEIGHT GAIN ABNORMAL 04/06/2009 ASHLEY BRUNO MD N 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 04/06/2009 ASHLEY BRUNO MD N 388.70 Otalgia, Unspecified 04/06/2009 ASHLEY BRUNO MD N 783.1 WEIGHT GAIN ABNORMAL 04/06/2009 ASHLEY BRUNO MD N 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 04/06/2009 ASHLEY BRUNO MD N 388.70 Otalgia, Unspecified 04/06/2009 ASHLEY BRUNO MD N 783.1 WEIGHT GAIN ABNORMAL 04/06/2009 ASHLEY BRUNO MD N 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 04/06/2009 ASHLEY BRUNO MD N 388.70 Otalgia, Unspecified 04/06/2009 ASHLEY BRUNO MD N 783.1 WEIGHT GAIN ABNORMAL 04/06/2009 ASHLEY BRUNO MD N 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 04/06/2009 ASHLEY BRUNO MD N 388.70 Otalgia, Unspecified 04/06/2009 ASHLEY BRUNO MD N 783.1 WEIGHT GAIN ABNORMAL 04/06/2009 ASHLEY BRUNO MD N 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 04/06/2009 ASHLEY BRUNO MD N 388.70 Otalgia, Unspecified 04/06/2009 ASHLEY BRUNO MD N 783.1 WEIGHT GAIN ABNORMAL 04/06/2009 ASHLEY BRUNO MD N 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 04/06/2009 ASHLEY BRUNO MD N 388.70 Otalgia, Unspecified 04/06/2009 ASHLEY BRUNO MD N 783.1 WEIGHT GAIN ABNORMAL 07/04/2009 AFTAB PEREIRA MD 278.02 OVERWEIGHT 07/04/2009 AFTAB PEREIRA MD 719.40 PAIN IN JOINT, SITE UNSPECIFIED 07/04/2009 AFTAB PEREIRA MD 729.5 PAIN IN LIMB 07/04/2009 AFTAB PEREIRA MD 782.3 EDEMA 07/04/2009 AFTAB PEREIRA MD 788.1 Dysuria 07/04/2009 278.02 OVERWEIGHT 07/04/2009 719.40 PAIN IN JOINT , SITE UNSPECIFIED 07/04/2009 729.5 PAIN IN LIMB 07/04/2009 782.3 EDEMA 07/04/2009 788.1 Dysuria 07/04/2009 SANDRA COOLER ROOM WORKER, GAGANDEEP R 278.02 OVERWEIGHT 07/04/2009 SANDRA COOLER ROOM WORKER, GAGANDEEP R 719.40 PAIN IN JOINT, SITE UNSPECIFIED 07/04/2009 SANDRA COOLER ROOM WORKER, GAGANDEEP R 729.5 PAIN IN LIMB 07/04/2009 SANDRA COOLER ROOM WORKER, GAGANDEEP R 782.3 EDEMA 07/04/2009 SANDRA LLANES, GAGANDEEP R 788.1 Dysuria 07/04/2009 AFTAB PEREIRA MD 278.02 Overweight 07/04/2009 AFTAB PEREIRA MD 719.40 PAIN IN JOINT, SITE UNSPECIFIED 07/04/2009 AFTAB PEREIRA MD 729.5 PAIN IN LIMB 07/04/2009 AFTAB PEREIRA MD 782.3 soft tissue swelling (non-joint) [Sx] 07/04/2009 AFTAB PEREIRA MD 788.1 Dysuria 07/04/2009 SOCRATES TALAVERA MD 278.02 Overweight 07/04/2009 SOCRATES TALAVERA MD 719.40 PAIN IN JOINT, SITE UNSPECIFIED 07/04/2009 SOCRATES TALAVERA MD 729.5 PAIN IN LIMB 07/04/2009 SOCRATES TALAVERA MD 782.3 soft tissue swelling (non-joint) [Sx] 07/04/2009 SOCRATES TALAVERA MD 788.1 Dysuria 07/04/2009 278.02 Overweight 07/04/2009 719.40 PAIN IN JOINT , SITE UNSPECIFIED 07/04/2009 729.5 PAIN IN LIMB 07/04/2009 782.3 soft tissue swelling (non-joint) [Sx] 07/04/2009 788.1 Dysuria 07/04/2009 278.02 Overweight 07/04/2009 719.40 PAIN IN JOINT , SITE UNSPECIFIED 07/04/2009 729.5 PAIN IN LIMB 07/04/2009 782.3 soft tissue swelling (non-joint) [Sx] 07/04/2009 788.1 Dysuria 07/04/2009 278.02 Overweight 07/04/2009 719.40 PAIN IN JOINT , SITE UNSPECIFIED 07/04/2009 729.5 PAIN IN LIMB 07/04/2009 782.3 soft tissue swelling (non-joint) [Sx] 07/04/2009 788.1 Dysuria 07/04/2009 SOCRATES TALAVERA MD 278.02 Overweight 07/04/2009 SOCRATES TALAVERA MD 719.40 PAIN IN JOINT, SITE UNSPECIFIED 07/04/2009 SOCRATES TALAVERA MD 729.5 PAIN IN LIMB 07/04/2009 SOCRATES TALAVERA MD 782.3 soft tissue swelling (non-joint) [Sx] 07/04/2009 SOCRATES TALAVERA MD 788.1 Dysuria 07/04/2009 SOCRATES TALAVERA MD 278.02 Overweight 07/04/2009 SOCRATES TALAVERA MD 719.40 PAIN IN JOINT, SITE UNSPECIFIED 07/04/2009 SOCRATES TALAVERA MD 729.5 PAIN IN LIMB 07/04/2009 SOCRATES TALAVERA MD 782.3 soft tissue swelling (non-joint) [Sx] 07/04/2009 SOCRATES TALAVERA MD 788.1 Dysuria 07/04/2009 SOCRATES TALAVERA MD 278.02 Overweight 07/04/2009 SOCRATES TALAVERA MD 719.40 PAIN IN JOINT, SITE UNSPECIFIED 07/04/2009 SOCRATES TALAVERA MD 729.5 PAIN IN LIMB 07/04/2009 SOCRATES TALAVERA MD 782.3 soft tissue swelling (non-joint) [Sx] 07/04/2009 SOCRATES TALAVERA MD 788.1 Dysuria 07/04/2009 JAMI ROSAS APRN A 278.02 Overweight 07/04/2009 JAMI ROSAS APRN A 719.40 PAIN IN JOINT, SITE UNSPECIFIED 07/04/2009 JAMI ROSAS APRN A 729.5 PAIN IN LIMB 07/04/2009 JAMI ROSAS APRN A 782.3 soft tissue swelling (non-joint) [Sx] 07/04/2009 MARYAN ROSAS APRNIDI A 788.1 Dysuria 07/04/2009 SOCRATES TALAVERA MD 278.02 Overweight 07/04/2009 SOCRATES TALAVERA MD 719.40 PAIN IN JOINT, SITE UNSPECIFIED 07/04/2009 SADAF MONZON, SOCRATES Portillo 729.5 PAIN IN LIMB 07/04/2009 SADAF MONZON, SOCRATES Portillo 782.3 soft tissue swelling (non-joint) [Sx] 07/04/2009 SOCRATES TALAVERA MD 788.1 Dysuria 07/04/2009 PETTY DO, SANDEEP K 278.02 Overweight 07/04/2009 PETTY DO, SANDEEP K 719.40 PAIN IN JOINT, SITE UNSPECIFIED 07/04/2009 PETTY DO, SANDEEP K 729.5 PAIN IN LIMB 07/04/2009 PETTY DO, SANDEEP K 782.3 soft tissue swelling (non-joint) [Sx] 07/04/2009 PETTY DO, SANDEEP K 788.1 Dysuria 07/04/2009 RALPHHELEN CASEN JAMI A 278.02 Overweight 07/04/2009 RALPH COOLER ROOM WORKER, JAMI A 719.40 PAIN IN JOINT, SITE UNSPECIFIED 07/04/2009 RALPH COOLER ROOM WORKER, JAMI A 729.5 PAIN IN LIMB 07/04/2009 RALPH COOLER ROOM WORKER, JAMI A 782.3 soft tissue swelling (non-joint) [Sx] 07/04/2009 RALPH COOLER ROOM WORKER, JAMI A 788.1 Dysuria 07/04/2009 PETTY DO, SANDEEP K 278.02 Overweight 07/04/2009 PETTY DO, SANDEEP K 719.40 PAIN IN JOINT, SITE UNSPECIFIED 07/04/2009 PETTY DO, SANDEEP K 729.5 PAIN IN LIMB 07/04/2009 PETTY DO, SANDEEP K 782.3 soft tissue swelling (non-joint) [Sx] 07/04/2009 PETTY DO, SANDEEP K 788.1 Dysuria 07/04/2009 PETTY DO, SANDEEP K 278.02 Overweight 07/04/2009 PETTY DO, SANDEEP K 719.40 PAIN IN JOINT, SITE UNSPECIFIED 07/04/2009 PETTY DO, SANDEEP K 729.5 PAIN IN LIMB 07/04/2009 PETTY DO, SANDEEP K 782.3 soft tissue swelling (non-joint) [Sx] 07/04/2009 PETTY DO, SANDEEP K 788.1 Dysuria 07/04/2009 KIANA ASHLEY MONZON N 278.02 Overweight 07/04/2009 ASHLEY BRUNO MD N 719.40 PAIN IN JOINT, SITE UNSPECIFIED 07/04/2009 ASHLEY BRUNO MD N 729.5 PAIN IN LIMB 07/04/2009 ASHLEY BRUNO MD N 782.3 soft tissue swelling (non-joint) [Sx] 07/04/2009 ASHLEY BRUNO MD N 788.1 Dysuria 07/04/2009 CHADWICK COOLER ROOM WORKER, LOVE R 278.02 Overweight 07/04/2009 CHADWICK COOLER ROOM WORKER, LOVE R 719.40 PAIN IN JOINT, SITE UNSPECIFIED 07/04/2009 CHADWICK COOLER ROOM WORKER, LOVE R 729.5 PAIN IN LIMB 07/04/2009 CHADWICK COOLER ROOM WORKER, LOVE R 782.3 soft tissue swelling (non-joint) [Sx] 07/04/2009 CHADWICK COOLER ROOM WORKER, LOVE R 788.1 Dysuria 07/04/2009 MALINDA BURT SANDEEP K 278.02 Overweight 07/04/2009 MALINDA BURT SANDEEP K 719.40 PAIN IN JOINT, SITE UNSPECIFIED 07/04/2009 PARIS PETTY DOA K 729.5 PAIN IN LIMB 07/04/2009 MALINDA BURT SADNEEP K 782.3 soft tissue swelling (non-joint) [Sx] 07/04/2009 PARIS PETTY DOA K 788.1 Dysuria 07/04/2009 ASHLEY BRUNO MD N 278.02 Overweight 07/04/2009 ASHLEY BRUNO MD N 719.40 PAIN IN JOINT, SITE UNSPECIFIED 07/04/2009 ASHLEY BRUNO MD N 729.5 PAIN IN LIMB 07/04/2009 ASHLEY BRUNO MD N 782.3 soft tissue swelling (non-joint) [Sx] 07/04/2009 ASHLEY BRUNO MD N 788.1 Dysuria 07/04/2009 ASHLEY BRUNO MD N 278.02 Overweight 07/04/2009 ASHLEY BRUNO MD N 719.40 PAIN IN JOINT, SITE UNSPECIFIED 07/04/2009 ASHLEY BRUNO MD N 729.5 PAIN IN LIMB 07/04/2009 ASHLEY BRUNO MD 782.3 soft tissue swelling (non-joint) [Sx] 07/04/2009 ASHLEY BRUNO MD N 788.1 Dysuria 07/04/2009 ASHLEY BRUNO MD N 278.02 Overweight 07/04/2009 ASHLEY BRUNO MD N 719.40 PAIN IN JOINT, SITE UNSPECIFIED 07/04/2009 ASHLEY BRUNO MD N 729.5 PAIN IN LIMB 07/04/2009 ASHLEY BRUNO MD N 782.3 soft tissue swelling (non-joint) [Sx] 07/04/2009 ASHLEY BRUNO MD N 788.1 Dysuria 07/04/2009 ASHLEY BRUNO MD N 278.02 Overweight 07/04/2009 ASHLEY BRUNO MD N 719.40 PAIN IN JOINT, SITE UNSPECIFIED 07/04/2009 ASHLEY BRUNO MD N 729.5 PAIN IN LIMB 07/04/2009 ASHLEY BRUNO MD N 782.3 soft tissue swelling (non-joint) [Sx] 07/04/2009 ASHLEY BRUNO MD N 788.1 Dysuria 07/04/2009 ASHLEY BRUNO MD N 278.02 Overweight 07/04/2009 ASHLEY BRUNO MD N 719.40 PAIN IN JOINT, SITE UNSPECIFIED 07/04/2009 ASHLEY BRUNO MD N 729.5 PAIN IN LIMB 07/04/2009 ASHLEY BRUNO MD N 782.3 soft tissue swelling (non-joint) [Sx] 07/04/2009 ASHLEY BRUNO MD N 788.1 Dysuria 07/04/2009 ASHLEY BRUNO MD N 278.02 Overweight 07/04/2009 ASHLEY BRUNO MD N 719.40 PAIN IN JOINT, SITE UNSPECIFIED 07/04/2009 ASHLEY BRUNO MD N 729.5 PAIN IN LIMB 07/04/2009 ASHLEY BRUNO MD N 782.3 soft tissue swelling (non-joint) [Sx] 07/04/2009 ASHLEY BRUNO MD N 788.1 Dysuria 07/04/2009 ASHLEY BRUNO MD N 278.02 Overweight 07/04/2009 ASHLEY BRUNO MD N 719.40 PAIN IN JOINT, SITE UNSPECIFIED 07/04/2009 ASHLEY BRUNO MD N 729.5 PAIN IN LIMB 07/04/2009 ASHLEY BRUNO MD N 782.3 soft tissue swelling (non-joint) [Sx] 07/04/2009 ASHLEY BRUNO MD N 788.1 Dysuria 07/04/2009 ASHLEY BRUNO MD N 278.02 Overweight 07/04/2009 ASHLEY BRUNO MD N 719.40 PAIN IN JOINT, SITE UNSPECIFIED 07/04/2009 ASHLEY BRUNO MD N 729.5 PAIN IN LIMB 07/04/2009 ASHLEY BRUNO MD N 782.3 soft tissue swelling (non-joint) [Sx] 07/04/2009 ASHLEY BRUNO MD N 788.1 Dysuria 07/04/2009 JAMI ROSAS APRN A 278.02 Overweight 07/04/2009 MARYAN ROSAS APRNIDI A 719.40 PAIN IN JOINT, SITE UNSPECIFIED 07/04/2009 JAMI ROSAS APRN A 729.5 PAIN IN LIMB 07/04/2009 MARYAN ROSAS APRNIDI A 782.3 soft tissue swelling (non-joint) [Sx] 07/04/2009 JAMI ROSAS APRN A 788.1 Dysuria 07/04/2009 ASHLEY BRUNO MD N 278.02 Overweight 07/04/2009 ASHLEY BRUNO MD N 719.40 PAIN IN JOINT, SITE UNSPECIFIED 07/04/2009 ASHLEY BRUNO MD N 729.5 PAIN IN LIMB 07/04/2009 ASHLEY BRUNO MD N 782.3 soft tissue swelling (non-joint) [Sx] 07/04/2009 ASHLEY BRUNO MD N 788.1 Dysuria 07/04/2009 ASHLEY BRUNO MD N 278.02 Overweight 07/04/2009 ASHLEY BRUNO MD N 719.40 PAIN IN JOINT, SITE UNSPECIFIED 07/04/2009 ASHLEY BRUNO MD N 729.5 PAIN IN LIMB 07/04/2009 ASHLEY BRUNO MD N 782.3 soft tissue swelling (non-joint) [Sx] 07/04/2009 ASHLEY BRUNO MD N 788.1 Dysuria 07/04/2009 ASHLEY BRUNO MD N 278.02 Overweight 07/04/2009 ASHLEY BRUNO MD N 719.40 PAIN IN JOINT, SITE UNSPECIFIED 07/04/2009 ASHLEY BRUNO MD N 729.5 PAIN IN LIMB 07/04/2009 ASHLEY BRUNO MD N 782.3 soft tissue swelling (non-joint) [Sx] 07/04/2009 ASHLEY BRUNO MD N 788.1 Dysuria 07/04/2009 ASHLEY BRUNO MD N 278.02 Overweight 07/04/2009 ASHLEY BRUNO MD N 719.40 PAIN IN JOINT, SITE UNSPECIFIED 07/04/2009 ASHLEY BRUNO MD N 729.5 PAIN IN LIMB 07/04/2009 ASHLEY BRUNO MD N 782.3 soft tissue swelling (non-joint) [Sx] 07/04/2009 ASHLEY BRUNO MD N 788.1 Dysuria 07/04/2009 ASHLEY BRUNO MD N 278.02 Overweight 07/04/2009 ASHLEY BRUNO MD N 719.40 PAIN IN JOINT, SITE UNSPECIFIED 07/04/2009 ASHLEY BRUNO MD N 729.5 PAIN IN LIMB 07/04/2009 ASHLEY BRUNO MD N 782.3 soft tissue swelling (non-joint) [Sx] 07/04/2009 ASHLEY BRUNO MD N 788.1 Dysuria 07/04/2009 ASHLEY BRUNO MD N 278.02 Overweight 07/04/2009 ASHLEY BRUNO MD N 719.40 PAIN IN JOINT, SITE UNSPECIFIED 07/04/2009 ASHLEY BRUNO MD N 729.5 PAIN IN LIMB 07/04/2009 ASHLEY BRUNO MD N 782.3 soft tissue swelling (non-joint) [Sx] 07/04/2009 ASHLEY BRUNO MD N 788.1 Dysuria 07/12/2009 AFTAB PEREIRA MD 453.40 Acute Venous Embolism And Thrombosis Of Unspecified Deep Vessels Of Lower Extremity 07/12/2009 453.40 Acute Venous Embolism And Thrombosis Of Unspecified Deep Vessels Of Lower Extremity 07/12/2009 GAGANDEEP FLORES APRN 453.40 Acute Venous Embolism And Thrombosis Of Unspecified Deep Vessels Of Lower Extremity 07/12/2009 AFTAB PEREIRA MD 453.40 Acute Venous Embolism And Thrombosis Of Unspecified Deep Vessels Of Lower Extremity 07/12/2009 SOCRATES TALAVERA MD 453.40 Acute Venous Embolism And Thrombosis Of Unspecified Deep Vessels Of Lower Extremity 07/12/2009 453.40 Acute Venous Embolism And Thrombosis Of Unspecified Deep Vessels Of Lower Extremity 07/12/2009 453.40 Acute Venous Embolism And Thrombosis Of Unspecified Deep Vessels Of Lower Extremity 07/12/2009 453.40 Acute Venous Embolism And Thrombosis Of Unspecified Deep Vessels Of Lower Extremity 07/12/2009 SOCRATES TALAVERA MD 453.40 Acute Venous Embolism And Thrombosis Of Unspecified Deep Vessels Of Lower Extremity 07/12/2009 SOCRATES TALAVERA MD 453.40 Acute Venous Embolism And Thrombosis Of Unspecified Deep Vessels Of Lower Extremity 07/12/2009 SOCRATES TALAVERA MD 453.40 Acute Venous Embolism And Thrombosis Of Unspecified Deep Vessels Of Lower Extremity 07/12/2009 JAMI ROSAS APRN 453.40 Acute Venous Embolism And Thrombosis Of Unspecified Deep Vessels Of Lower Extremity 07/12/2009 SOCRATES TALAVERA MD 453.40 Acute Venous Embolism And Thrombosis Of Unspecified Deep Vessels Of Lower Extremity 07/12/2009 SANDEEP PETTY DO K 453.40 Acute Venous Embolism And Thrombosis Of Unspecified Deep Vessels Of Lower Extremity 07/12/2009 JAMI ROSAS APRN A 453.40 Acute Venous Embolism And Thrombosis Of Unspecified Deep Vessels Of Lower Extremity 07/12/2009 MALINDA BURT SANDEEP K 453.40 Acute Venous Embolism And Thrombosis Of Unspecified Deep Vessels Of Lower Extremity 07/12/2009 MALINDA BURT SANDEEP K 453.40 Acute Venous Embolism And Thrombosis Of Unspecified Deep Vessels Of Lower Extremity 07/12/2009 ASHLEY BRUNO MD 453.40 Acute Venous Embolism And Thrombosis Of Unspecified Deep Vessels Of Lower Extremity 07/12/2009 LOVE GENAO APRN 453.40 Acute Venous Embolism And Thrombosis Of Unspecified Deep Vessels Of Lower Extremity 07/12/2009 PARIS PETTY DOA K 453.40 Acute Venous Embolism And Thrombosis Of Unspecified Deep Vessels Of Lower Extremity 07/12/2009 ASHLEY BRUNO MD 453.40 Acute Venous Embolism And Thrombosis Of Unspecified Deep Vessels Of Lower Extremity 07/12/2009 ASHLEY BRUNO MD N 453.40 Acute Venous Embolism And Thrombosis Of Unspecified Deep Vessels Of Lower Extremity 07/12/2009 ASHLEY BRUNO MD N 453.40 Acute Venous Embolism And Thrombosis Of Unspecified Deep Vessels Of Lower Extremity 07/12/2009 ASHLEY BRUNO MD N 453.40 Acute Venous Embolism And Thrombosis Of Unspecified Deep Vessels Of Lower Extremity 07/12/2009 ASHLEY BRNUO MD N 453.40 Acute Venous Embolism And Thrombosis Of Unspecified Deep Vessels Of Lower Extremity 07/12/2009 ASHLEY BRUNO MD N 453.40 Acute Venous Embolism And Thrombosis Of Unspecified Deep Vessels Of Lower Extremity 07/12/2009 ASHLEY BRUNO MD N 453.40 Acute Venous Embolism And Thrombosis Of Unspecified Deep Vessels Of Lower Extremity 07/12/2009 ASHLEY BRUNO MD N 453.40 Acute Venous Embolism And Thrombosis Of Unspecified Deep Vessels Of Lower Extremity 07/12/2009 JAMI ROSAS APRN 453.40 Acute Venous Embolism And Thrombosis Of Unspecified Deep Vessels Of Lower Extremity 07/12/2009 ASHLEY BRUNO MD N 453.40 Acute Venous Embolism And Thrombosis Of Unspecified Deep Vessels Of Lower Extremity 07/12/2009 ASHLEY BRUNO MD N 453.40 Acute Venous Embolism And Thrombosis Of Unspecified Deep Vessels Of Lower Extremity 07/12/2009 ASHLEY BRUNO MD N 453.40 Acute Venous Embolism And Thrombosis Of Unspecified Deep Vessels Of Lower Extremity 07/12/2009 ASHLEY BRUNO MD N 453.40 Acute Venous Embolism And Thrombosis Of Unspecified Deep Vessels Of Lower Extremity 07/12/2009 ASHLEY BRUNO MD N 453.40 Acute Venous Embolism And Thrombosis Of Unspecified Deep Vessels Of Lower Extremity 07/12/2009 ASHLEY BRUNO MD N 453.40 Acute Venous Embolism And Thrombosis Of Unspecified Deep Vessels Of Lower Extremity 10/26/2009 AFTAB PEREIRA MD 536.8 DYSPEPSIA AND OTHER SPECIFIED DISORDERS OF FUNCTION OF STOMACH 10/26/2009 536.8 DYSPEPSIA AND OTHER SPECIFIED DISORDERS OF FUNCTION OF STOMACH 10/26/2009 GAGANDEEP FLORES APRN 536.8 DYSPEPSIA AND OTHER SPECIFIED DISORDERS OF FUNCTION OF STOMACH 10/26/2009 AFTAB PEREIRA MD 536.8 DYSPEPSIA AND OTHER SPECIFIED DISORDERS OF FUNCTION OF STOMACH 10/26/2009 SOCRATES TALAVERA MD 536.8 DYSPEPSIA AND OTHER SPECIFIED DISORDERS OF FUNCTION OF STOMACH 10/26/2009 536.8 DYSPEPSIA AND OTHER SPECIFIED DISORDERS OF FUNCTION OF STOMACH 10/26/2009 536.8 DYSPEPSIA AND OTHER SPECIFIED DISORDERS OF FUNCTION OF STOMACH 10/26/2009 536.8 DYSPEPSIA AND OTHER SPECIFIED DISORDERS OF FUNCTION OF STOMACH 10/26/2009 SOCRATES TALAVERA MD 536.8 DYSPEPSIA AND OTHER SPECIFIED DISORDERS OF FUNCTION OF STOMACH 10/26/2009 SOCRATES TALAVERA MD 536.8 DYSPEPSIA AND OTHER SPECIFIED DISORDERS OF FUNCTION OF STOMACH 10/26/2009 SOCRATES TALAVERA MD 536.8 DYSPEPSIA AND OTHER SPECIFIED DISORDERS OF FUNCTION OF STOMACH 10/26/2009 JAMI ROSAS APRN 536.8 DYSPEPSIA AND OTHER SPECIFIED DISORDERS OF FUNCTION OF STOMACH 10/26/2009 SOCRATES TALAVERA MD 536.8 DYSPEPSIA AND OTHER SPECIFIED DISORDERS OF FUNCTION OF STOMACH 10/26/2009 PARIS PETTY DOA K 536.8 DYSPEPSIA AND OTHER SPECIFIED DISORDERS OF FUNCTION OF STOMACH 10/26/2009 JAMI ROSAS APRN A 536.8 DYSPEPSIA AND OTHER SPECIFIED DISORDERS OF FUNCTION OF STOMACH 10/26/2009 PETTY DO SANDEEP K 536.8 DYSPEPSIA AND OTHER SPECIFIED DISORDERS OF FUNCTION OF STOMACH 10/26/2009 PETTY DO SANDEEP K 536.8 DYSPEPSIA AND OTHER SPECIFIED DISORDERS OF FUNCTION OF STOMACH 10/26/2009 ASHLEY BRUNO MD 536.8 DYSPEPSIA AND OTHER SPECIFIED DISORDERS OF FUNCTION OF STOMACH 10/26/2009 LOVE GENAO APRN 536.8 DYSPEPSIA AND OTHER SPECIFIED DISORDERS OF FUNCTION OF STOMACH 10/26/2009 MALINDA BURT SANDEEP K 536.8 DYSPEPSIA AND OTHER SPECIFIED DISORDERS OF FUNCTION OF STOMACH 10/26/2009 ASHLEY BRUNO MD 536.8 DYSPEPSIA AND OTHER SPECIFIED DISORDERS OF FUNCTION OF STOMACH 10/26/2009 ASHLEY BRUNO MD 536.8 DYSPEPSIA AND OTHER SPECIFIED DISORDERS OF FUNCTION OF STOMACH 10/26/2009 KIANA MD, ASHLEY N 536.8 DYSPEPSIA AND OTHER SPECIFIED DISORDERS OF FUNCTION OF STOMACH 10/26/2009 KIANA MONZON ASHLEY N 536.8 DYSPEPSIA AND OTHER SPECIFIED DISORDERS OF FUNCTION OF STOMACH 10/26/2009 KIANA MONZON ASHLEY N 536.8 DYSPEPSIA AND OTHER SPECIFIED DISORDERS OF FUNCTION OF STOMACH 10/26/2009 KIANA MONZON ASHLEY N 536.8 DYSPEPSIA AND OTHER SPECIFIED DISORDERS OF FUNCTION OF STOMACH 10/26/2009 KIANA MONZON ASHLEY N 536.8 DYSPEPSIA AND OTHER SPECIFIED DISORDERS OF FUNCTION OF STOMACH 10/26/2009 KIANA MONZON ASHLEY N 536.8 DYSPEPSIA AND OTHER SPECIFIED DISORDERS OF FUNCTION OF STOMACH 10/26/2009 JAMI ROSAS APRN 536.8 DYSPEPSIA AND OTHER SPECIFIED DISORDERS OF FUNCTION OF STOMACH 10/26/2009 KIANA MONZON ASHLEY N 536.8 DYSPEPSIA AND OTHER SPECIFIED DISORDERS OF FUNCTION OF STOMACH 10/26/2009 KIANA MONZON ASHLEY N 536.8 DYSPEPSIA AND OTHER SPECIFIED DISORDERS OF FUNCTION OF STOMACH 10/26/2009 KIANA MONZON ASHLEY N 536.8 DYSPEPSIA AND OTHER SPECIFIED DISORDERS OF FUNCTION OF STOMACH 10/26/2009 KIANA MONZON ASHLEY N 536.8 DYSPEPSIA AND OTHER SPECIFIED DISORDERS OF FUNCTION OF STOMACH 10/26/2009 KIANA MONZON ASHLEY N 536.8 DYSPEPSIA AND OTHER SPECIFIED DISORDERS OF FUNCTION OF STOMACH 10/26/2009 KIANA MONZON ASHLEY N 536.8 DYSPEPSIA AND OTHER SPECIFIED DISORDERS OF FUNCTION OF STOMACH 11/15/2009 AFTAB PEREIRA MD 726.10 DISORDERS OF BURSAE AND TENDONS IN SHOULDER REGION, UNSPECIFIED 11/15/2009 726.10 DISORDERS OF BURSAE AND TENDONS IN SHOULDER REGION, UNSPECIFIED 11/15/2009 GAGANDEEP FLORES APRN 726.10 DISORDERS OF BURSAE AND TENDONS IN SHOULDER REGION, UNSPECIFIED 11/15/2009 AFTAB PEREIRA MD 726.10 DISORDERS OF BURSAE AND TENDONS IN SHOULDER REGION, UNSPECIFIED 11/15/2009 SOCRATES TALAVERA MD 726.10 DISORDERS OF BURSAE AND TENDONS IN SHOULDER REGION, UNSPECIFIED 11/15/2009 726.10 DISORDERS OF BURSAE AND TENDONS IN SHOULDER REGION, UNSPECIFIED 11/15/2009 726.10 DISORDERS OF BURSAE AND TENDONS IN SHOULDER REGION, UNSPECIFIED 11/15/2009 726.10 DISORDERS OF BURSAE AND TENDONS IN SHOULDER REGION, UNSPECIFIED 11/15/2009 SOCRATES TALAVERA MD 726.10 DISORDERS OF BURSAE AND TENDONS IN SHOULDER REGION, UNSPECIFIED 11/15/2009 SOCRATES TALAVERA MD 726.10 DISORDERS OF BURSAE AND TENDONS IN SHOULDER REGION, UNSPECIFIED 11/15/2009 SOCRATES TALAVERA MD 726.10 DISORDERS OF BURSAE AND TENDONS IN SHOULDER REGION, UNSPECIFIED 11/15/2009 JAMI ROSAS APRN A 726.10 DISORDERS OF BURSAE AND TENDONS IN SHOULDER REGION, UNSPECIFIED 11/15/2009 SOCRATES TALAVERA MD 726.10 DISORDERS OF BURSAE AND TENDONS IN SHOULDER REGION, UNSPECIFIED 11/15/2009 SANDEEP PETTY DO K 726.10 DISORDERS OF BURSAE AND TENDONS IN SHOULDER REGION, UNSPECIFIED 11/15/2009 JAMI ROSAS APRN A 726.10 DISORDERS OF BURSAE AND TENDONS IN SHOULDER REGION, UNSPECIFIED 11/15/2009 SANDEEP PETTY DO K 726.10 DISORDERS OF BURSAE AND TENDONS IN SHOULDER REGION, UNSPECIFIED 11/15/2009 SANDEEP PETTY DO K 726.10 DISORDERS OF BURSAE AND TENDONS IN SHOULDER REGION, UNSPECIFIED 11/15/2009 ASHLEY BRUNO MD 726.10 DISORDERS OF BURSAE AND TENDONS IN SHOULDER REGION, UNSPECIFIED 11/15/2009 LOVE GENAO APRN 726.10 DISORDERS OF BURSAE AND TENDONS IN SHOULDER REGION, UNSPECIFIED 11/15/2009 SANDEEP PETTY DO K 726.10 DISORDERS OF BURSAE AND TENDONS IN SHOULDER REGION, UNSPECIFIED 11/15/2009 ASHLEY BRUNO MD 726.10 DISORDERS OF BURSAE AND TENDONS IN SHOULDER REGION, UNSPECIFIED 11/15/2009 ASHLEY BRUNO MD 726.10 DISORDERS OF BURSAE AND TENDONS IN SHOULDER REGION, UNSPECIFIED 11/15/2009 ASHLEY BRUNO MD 726.10 DISORDERS OF BURSAE AND TENDONS IN SHOULDER REGION, UNSPECIFIED 11/15/2009 ASHLEY BRUNO MD 726.10 DISORDERS OF BURSAE AND TENDONS IN SHOULDER REGION, UNSPECIFIED 11/15/2009 ASHLEY BRUNO MD N 726.10 DISORDERS OF BURSAE AND TENDONS IN SHOULDER REGION, UNSPECIFIED 11/15/2009 ASHLEY BRUNO MD N 726.10 DISORDERS OF BURSAE AND TENDONS IN SHOULDER REGION, UNSPECIFIED 11/15/2009 ASHLEY BRUNO MD N 726.10 DISORDERS OF BURSAE AND TENDONS IN SHOULDER REGION, UNSPECIFIED 11/15/2009 ASHLEY BRUNO MD N 726.10 DISORDERS OF BURSAE AND TENDONS IN SHOULDER REGION, UNSPECIFIED 11/15/2009 JAMI ROSAS APRN 726.10 DISORDERS OF BURSAE AND TENDONS IN SHOULDER REGION, UNSPECIFIED 11/15/2009 ASHLEY BRUNO MD N 726.10 DISORDERS OF BURSAE AND TENDONS IN SHOULDER REGION, UNSPECIFIED 11/15/2009 ASHLEY BRUNO MD N 726.10 DISORDERS OF BURSAE AND TENDONS IN SHOULDER REGION, UNSPECIFIED 11/15/2009 ASHLEY BRUNO MD N 726.10 DISORDERS OF BURSAE AND TENDONS IN SHOULDER REGION, UNSPECIFIED 11/15/2009 ASHLEY BRUNO MD N 726.10 DISORDERS OF BURSAE AND TENDONS IN SHOULDER REGION, UNSPECIFIED 11/15/2009 ASHLEY BRUNO MD N 726.10 DISORDERS OF BURSAE AND TENDONS IN SHOULDER REGION, UNSPECIFIED 11/15/2009 ASHLEY BRUNO MD N 726.10 DISORDERS OF BURSAE AND TENDONS IN SHOULDER REGION, UNSPECIFIED 02/27/2010 AFTAB PEREIRA MD 288.50 LEUKOCYTOPENIA UNSPECIFIED 02/27/2010 AFTAB PEREIRA MD 289.81 PRIMARY HYPERCOAGULABLE STATE 02/27/2010 288.50 LEUKOCYTOPENIA UNSPECIFIED 02/27/2010 289.81 PRIMARY HYPERCOAGULABLE STATE 02/27/2010 RICO FLORES APRNIA R 288.50 LEUKOCYTOPENIA UNSPECIFIED 02/27/2010 GAGANDEEP FLORES APRN R 289.81 PRIMARY HYPERCOAGULABLE STATE 02/27/2010 AFTAB PEREIRA MD 288.50 LEUKOCYTOPENIA UNSPECIFIED 02/27/2010 AFTAB PEREIRA MD 289.81 PRIMARY HYPERCOAGULABLE STATE 02/27/2010 SOCRATES TALAVERA MD 288.50 LEUKOCYTOPENIA UNSPECIFIED 02/27/2010 SOCRATES TALAVERA MD 289.81 PRIMARY HYPERCOAGULABLE STATE 02/27/2010 288.50 LEUKOCYTOPENIA UNSPECIFIED 02/27/2010 289.81 PRIMARY HYPERCOAGULABLE STATE 02/27/2010 288.50 LEUKOCYTOPENIA UNSPECIFIED 02/27/2010 289.81 PRIMARY HYPERCOAGULABLE STATE 02/27/2010 288.50 LEUKOCYTOPENIA UNSPECIFIED 02/27/2010 289.81 PRIMARY HYPERCOAGULABLE STATE 02/27/2010 SOCRATES TALAVERA MD 288.50 LEUKOCYTOPENIA UNSPECIFIED 02/27/2010 SOCRATES TALAVERA MD 289.81 PRIMARY HYPERCOAGULABLE STATE 02/27/2010 SOCRATES TALAVERA MD 288.50 LEUKOCYTOPENIA UNSPECIFIED 02/27/2010 SOCRATES TALAVERA MD 289.81 PRIMARY HYPERCOAGULABLE STATE 02/27/2010 SOCRATES TALAVERA MD 288.50 LEUKOCYTOPENIA UNSPECIFIED 02/27/2010 SOCRATES TALAVERA MD 289.81 PRIMARY HYPERCOAGULABLE STATE 02/27/2010 JAMI ROSAS APRN A 288.50 LEUKOCYTOPENIA UNSPECIFIED 02/27/2010 JAMI ROSAS APRN A 289.81 PRIMARY HYPERCOAGULABLE STATE 02/27/2010 SOCRATES TALAEVRA MD 288.50 LEUKOCYTOPENIA UNSPECIFIED 02/27/2010 SOCRATES TALAVERA MD 289.81 PRIMARY HYPERCOAGULABLE STATE 02/27/2010 PETTY DO, SANDEEP K 288.50 LEUKOCYTOPENIA UNSPECIFIED 02/27/2010 PETTY DO, SANDEEP K 289.81 PRIMARY HYPERCOAGULABLE STATE 02/27/2010 RALPH LLANES JAMI A 288.50 LEUKOCYTOPENIA UNSPECIFIED 02/27/2010 MARYAN ROSAS APRNIDI A 289.81 PRIMARY HYPERCOAGULABLE STATE 02/27/2010 PETTY DO, SANDEEP K 288.50 LEUKOCYTOPENIA UNSPECIFIED 02/27/2010 PETTY DO, SANDEEP K 289.81 PRIMARY HYPERCOAGULABLE STATE 02/27/2010 PETTY DO, SANDEEP K 288.50 LEUKOCYTOPENIA UNSPECIFIED 02/27/2010 PETTY DO, SANDEEP K 289.81 PRIMARY HYPERCOAGULABLE STATE 02/27/2010 KIANA MONZON, ASHLEY Lee 288.50 LEUKOCYTOPENIA UNSPECIFIED 02/27/2010 ASHLEY BRUNO MD 289.81 PRIMARY HYPERCOAGULABLE STATE 02/27/2010 LASHONDA GENAO APRNINA R 288.50 LEUKOCYTOPENIA UNSPECIFIED 02/27/2010 LASHONDA GENAO APRNINA R 289.81 PRIMARY HYPERCOAGULABLE STATE 02/27/2010 SANDEEP PETTY DO K 288.50 LEUKOCYTOPENIA UNSPECIFIED 02/27/2010 PETTY PARIS BURTA K 289.81 PRIMARY HYPERCOAGULABLE STATE 02/27/2010 ASHLEY BRUNO MD N 288.50 LEUKOCYTOPENIA UNSPECIFIED 02/27/2010 ASHLEY BRUNO MD N 289.81 PRIMARY HYPERCOAGULABLE STATE 02/27/2010 ASHLEY BRUNO MD N 288.50 LEUKOCYTOPENIA UNSPECIFIED 02/27/2010 ASHLEY BRUNO MD N 289.81 PRIMARY HYPERCOAGULABLE STATE 02/27/2010 ASHLEY BRUNO MD N 288.50 LEUKOCYTOPENIA UNSPECIFIED 02/27/2010 ASHLEY BRUNO MD N 289.81 PRIMARY HYPERCOAGULABLE STATE 02/27/2010 ASHLEY BRUNO MD N 288.50 LEUKOCYTOPENIA UNSPECIFIED 02/27/2010 ASHLEY BRUNO MD N 289.81 PRIMARY HYPERCOAGULABLE STATE 02/27/2010 ASHLEY BRUNO MD N 288.50 LEUKOCYTOPENIA UNSPECIFIED 02/27/2010 ASHLEY BRUNO MD N 289.81 PRIMARY HYPERCOAGULABLE STATE 02/27/2010 ASHLEY BRUNO MD N 288.50 LEUKOCYTOPENIA UNSPECIFIED 02/27/2010 ASHLEY BRUNO MD N 289.81 PRIMARY HYPERCOAGULABLE STATE 02/27/2010 ASHLEY BRUNO MD N 288.50 LEUKOCYTOPENIA UNSPECIFIED 02/27/2010 ASHLEY BRUNO MD N 289.81 PRIMARY HYPERCOAGULABLE STATE 02/27/2010 ASHLEY BRUNO MD N 288.50 LEUKOCYTOPENIA UNSPECIFIED 02/27/2010 ASHLEY BRUNO MD N 289.81 PRIMARY HYPERCOAGULABLE STATE 02/27/2010 JAMI ROSAS APRN A 288.50 LEUKOCYTOPENIA UNSPECIFIED 02/27/2010 JAMI ROSAS APRN A 289.81 PRIMARY HYPERCOAGULABLE STATE 02/27/2010 KIANA MD, ASHLEY N 288.50 LEUKOCYTOPENIA UNSPECIFIED 02/27/2010 KIANA MONZON, ASHLEY N 289.81 PRIMARY HYPERCOAGULABLE STATE 02/27/2010 ASHLEY BRUNO MD N 288.50 LEUKOCYTOPENIA UNSPECIFIED 02/27/2010 KIANA MONZON, ASHLEY N 289.81 PRIMARY HYPERCOAGULABLE STATE 02/27/2010 ASHLEY BRUNO MD N 288.50 LEUKOCYTOPENIA UNSPECIFIED 02/27/2010 KIANA MONZON ASHLEY N 289.81 PRIMARY HYPERCOAGULABLE STATE 02/27/2010 KIANA MONZON ASHLEY N 288.50 LEUKOCYTOPENIA UNSPECIFIED 02/27/2010 KIANA MONZON ASHLEY N 289.81 PRIMARY HYPERCOAGULABLE STATE 02/27/2010 ASHLEY BRUNO MD N 288.50 LEUKOCYTOPENIA UNSPECIFIED 02/27/2010 ASHLEY BRUNO MD N 289.81 PRIMARY HYPERCOAGULABLE STATE 02/27/2010 ASHLEY BRUNO MD N 288.50 LEUKOCYTOPENIA UNSPECIFIED 02/27/2010 ASHLEY BRUNO MD N 289.81 PRIMARY HYPERCOAGULABLE STATE 03/11/2011 AFTAB PEREIRA MD 268.9 VITAMIN D DEFICIENCY 03/11/2011 AFTAB PEREIRA MD 278.00 OBESITY 03/11/2011 268.9 VITAMIN D DEFICIENCY 03/11/2011 278.00 OBESITY 03/11/2011 GAGANDEEP FLORES APRN R 268.9 VITAMIN D DEFICIENCY 03/11/2011 GAGANDEEP FLORES APRN R 278.00 OBESITY 03/11/2011 AFTAB PEREIRA MD 268.9 VITAMIN D DEFICIENCY 03/11/2011 AFTAB PEREIRA MD 278.00 OBESITY 03/11/2011 SOCRATES TALAVERA MD 268.9 VITAMIN D DEFICIENCY 03/11/2011 SOCRATES TALAVERA MD 278.00 OBESITY 03/11/2011 268.9 VITAMIN D DEFICIENCY 03/11/2011 278.00 OBESITY 03/11/2011 268.9 VITAMIN D DEFICIENCY 03/11/2011 278.00 OBESITY 03/11/2011 268.9 VITAMIN D DEFICIENCY 03/11/2011 278.00 OBESITY 03/11/2011 SOCRATES TALAVERA MD 268.9 VITAMIN D DEFICIENCY 03/11/2011 SOCRATES TALAVERA MD 278.00 OBESITY 03/11/2011 SOCRATES TALAVERA MD 268.9 VITAMIN D DEFICIENCY 03/11/2011 SOCRATES TALAVERA MD 278.00 OBESITY 03/11/2011 SOCRATES TALAVERA MD 268.9 VITAMIN D DEFICIENCY 03/11/2011 SOCRATES TALAVERA MD 278.00 OBESITY 03/11/2011 RALPH LLNAES, JAMI A 268.9 VITAMIN D DEFICIENCY 03/11/2011 RALPHHELEN LLANES, JAMI A 278.00 OBESITY 03/11/2011 SOCRATES TALAVERA MD 268.9 VITAMIN D DEFICIENCY 03/11/2011 SOCRATES TALAVERA MD 278.00 OBESITY 03/11/2011 PETTY DO, SANDEEP K 268.9 VITAMIN D DEFICIENCY 03/11/2011 PETTY DO, SANDEEP K 278.00 OBESITY 03/11/2011 RALPH LLANES, JAMI A 268.9 VITAMIN D DEFICIENCY 03/11/2011 RALPH LLANES, JAMI A 278.00 OBESITY 03/11/2011 PETTY DO, SANDEEP K 268.9 VITAMIN D DEFICIENCY 03/11/2011 PETTY DO, SANDEEP K 278.00 OBESITY 03/11/2011 PETTY DO, SANDEEP K 268.9 VITAMIN D DEFICIENCY 03/11/2011 PETTY DO, SANDEEP K 278.00 OBESITY 03/11/2011 ASHLEY BRUNO MD N 268.9 VITAMIN D DEFICIENCY 03/11/2011 ASHLEY BRUNO MD N 278.00 OBESITY 03/11/2011 CHADWICK LLANES LOVE R 268.9 VITAMIN D DEFICIENCY 03/11/2011 CHADWICK LLANES LOVE R 278.00 OBESITY 03/11/2011 PETTY DO, SANDEEP K 268.9 VITAMIN D DEFICIENCY 03/11/2011 PETTY DO, SANDEEP K 278.00 OBESITY 03/11/2011 ASHLEY BRUNO MD N 268.9 VITAMIN D DEFICIENCY 03/11/2011 ASHLEY BRUNO MD N 278.00 OBESITY 03/11/2011 ASHLEY BRUNO MD N 268.9 VITAMIN D DEFICIENCY 03/11/2011 ASHLEY BRUNO MD N 278.00 OBESITY 03/11/2011 ASHLEY BRUNO MD N 268.9 VITAMIN D DEFICIENCY 03/11/2011 ASHLEY BRUNO MD N 278.00 OBESITY 03/11/2011 KIANA MD, ASHLEY N 268.9 VITAMIN D DEFICIENCY 03/11/2011 KIANA MONZON, ASHLEY N 278.00 OBESITY 03/11/2011 ASHLEY BRUNO MD N 268.9 VITAMIN D DEFICIENCY 03/11/2011 ASHLEY BRUNO MD N 278.00 OBESITY 03/11/2011 ASHLEY BRUNO MD N 268.9 VITAMIN D DEFICIENCY 03/11/2011 ASHLEY BRUNO MD N 278.00 OBESITY 03/11/2011 ASHLEY BRUNO MD N 268.9 VITAMIN D DEFICIENCY 03/11/2011 KIANA MONZON, ASHLEY N 278.00 OBESITY 03/11/2011 ASHLEY BRUNO MD N 268.9 VITAMIN D DEFICIENCY 03/11/2011 ASHLEY BRUNO MD N 278.00 OBESITY 03/11/2011 RALPHJAMI CERVANTES APRN A 268.9 VITAMIN D DEFICIENCY 03/11/2011 RALPHHELEN LLANES, JAMI A 278.00 OBESITY 03/11/2011 ASHLEY BRUNO MD N 268.9 VITAMIN D DEFICIENCY 03/11/2011 ASHLEY BRUNO MD N 278.00 OBESITY 03/11/2011 ASHLEY BRUNO MD N 268.9 VITAMIN D DEFICIENCY 03/11/2011 ASHLEY BRUNO MD N 278.00 OBESITY 03/11/2011 ASHLEY BRUNO MD N 268.9 VITAMIN D DEFICIENCY 03/11/2011 KIANA MONZON ASHLEY N 278.00 OBESITY 03/11/2011 ASHLEY BRUNO MD N 268.9 VITAMIN D DEFICIENCY 03/11/2011 ASHLEY BRUNO MD N 278.00 OBESITY 03/11/2011 ASHLEY BRUNO MD N 268.9 VITAMIN D DEFICIENCY 03/11/2011 ASHLEY BRUNO MD N 278.00 OBESITY 03/11/2011 ASHLEY BRUNO MD N 268.9 VITAMIN D DEFICIENCY 03/11/2011 ASHLEY BRUNO MD N 278.00 OBESITY 06/18/2011 Ot 924.20 CONTUSION OF FOOT 06/18/2011 Ot 959.7 LOWER LEG INJURY NOS 06/18/2011 Ot E000.8 OTHER EXTERNAL CAUSE STATUS 06/18/2011 Ot E849.0 ACCIDENT IN HOME 06/18/2011 Ot E888.9 FALL NOS 08/06/2011 HUERTAFTAB FLORES MD V12.51 Personal History of DVT 08/06/2011 V12.51 Personal History of DVT 08/06/2011 GAGANDEEP FLORES APRN V12.51 Personal History of DVT 08/06/2011 AFTAB PEREIRA MD V12.51 Personal History of DVT 08/06/2011 SOCRATES TALAVERA MD V12.51 Personal History of DVT 08/06/2011 V12.51 Personal History of DVT 08/06/2011 V12.51 Personal History of DVT 08/06/2011 V12.51 Personal History of DVT 08/06/2011 SOCRATES TALAVERA MD V12.51 Personal History of DVT 08/06/2011 SOCRATES TALAVERA MD V12.51 Personal History of DVT 08/06/2011 SOCRATES TALAVERA MD V12.51 Personal History of DVT 08/06/2011 JAMI ROSAS APRN V12.51 Personal History of DVT 08/06/2011 SOCRATES TALAVERA MD V12.51 Personal History of DVT 08/06/2011 SANDEEP PETTY DO K V12.51 Personal History of DVT 08/06/2011 JAMI ROSAS APRN V12.51 Personal History of DVT 08/06/2011 SANDEEP PETTY DO K V12.51 Personal History of DVT 08/06/2011 SANDEEP PETTY DO K V12.51 Personal History of DVT 08/06/2011 ASHLEY BRUNO MD V12.51 Personal History of DVT 08/06/2011 LOVE GENAO APRN V12.51 Personal History of DVT 08/06/2011 SANDEEP PETTY DO K V12.51 Personal History of DVT 08/06/2011 ASHLEY BRUNO MD V12.51 Personal History of DVT 08/06/2011 ASHLEY BRUNO MD V12.51 Personal History of DVT 08/06/2011 ASHLEY BRUNO MD V12.51 Personal History of DVT 08/06/2011 ASHLEY BRUNO MD V12.51 Personal History of DVT 08/06/2011 ASHLEY BRUNO MD V12.51 Personal History of DVT 08/06/2011 ASHLEY BRUNO MD V12.51 Personal History of DVT 08/06/2011 ASHLEY BRUNO MD V12.51 Personal History of DVT 08/06/2011 ASHLEY BRUNO MD V12.51 Personal History of DVT 08/06/2011 JAMI ROSAS APRN V12.51 Personal History of DVT 08/06/2011 ASHLEY BRUNO MD V12.51 Personal History of DVT 08/06/2011 ASHLEY BRUNO MD V12.51 Personal History of DVT 08/06/2011 ASHLEY BRUNO MD V12.51 Personal History of DVT 08/06/2011 ASHLEY BRUNO MD V12.51 Personal History of DVT 08/06/2011 ASHLEY BRUNO MD V12.51 Personal History of DVT 08/06/2011 ASHLEY BRUNO MD V12.51 Personal History of DVT 01/23/2012 AFTAB PEREIRA MD 272.1 HYPERTRIGLYCERIDEMIA 01/23/2012 AFTAB PEREIRA MD 276.8 HYPOKALEMIA 01/23/2012 AFTAB PEREIRA MD 338.4 CHRONIC PAIN SYNDROME 01/23/2012 272.1 HYPERTRIGLYCERIDEMIA 01/23/2012 276.8 HYPOKALEMIA 01/23/2012 338.4 CHRONIC PAIN SYNDROME 01/23/2012 SANDRA LLANES GAGANDEEP R 272.1 HYPERTRIGLYCERIDEMIA 01/23/2012 SANDRA LLANES GAGANDEEP R 276.8 HYPOKALEMIA 01/23/2012 SANDRA LLANES GAGANDEEP R 338.4 CHRONIC PAIN SYNDROME 01/23/2012 AFTAB PEREIRA MD 272.1 HYPERTRIGLYCERIDEMIA 01/23/2012 AFTAB PEREIRA MD 276.8 HYPOKALEMIA 01/23/2012 AFTAB PEREIRA MD 338.4 CHRONIC PAIN SYNDROME 01/23/2012 SOCRATES TALAVERA MD 272.1 HYPERTRIGLYCERIDEMIA 01/23/2012 SOCRATES TALAVERA MD 276.8 HYPOKALEMIA 01/23/2012 SOCRATES TALAVERA MD 338.4 CHRONIC PAIN SYNDROME 01/23/2012 272.1 HYPERTRIGLYCERIDEMIA 01/23/2012 276.8 HYPOKALEMIA 01/23/2012 338.4 CHRONIC PAIN SYNDROME 01/23/2012 272.1 HYPERTRIGLYCERIDEMIA 01/23/2012 276.8 HYPOKALEMIA 01/23/2012 338.4 CHRONIC PAIN SYNDROME 01/23/2012 272.1 HYPERTRIGLYCERIDEMIA 01/23/2012 276.8 HYPOKALEMIA 01/23/2012 338.4 CHRONIC PAIN SYNDROME 01/23/2012 SOCRATES TALAVERA MD 272.1 HYPERTRIGLYCERIDEMIA 01/23/2012 SOCRATES TALAVERA MD M 276.8 HYPOKALEMIA 01/23/2012 SOCRATES TALAVERA MD 338.4 CHRONIC PAIN SYNDROME 01/23/2012 SOCRATES TALAVERA MD 272.1 HYPERTRIGLYCERIDEMIA 01/23/2012 SOCRATES TALAVERA MD 276.8 HYPOKALEMIA 01/23/2012 SOCRATES TALAVERA MD 338.4 CHRONIC PAIN SYNDROME 01/23/2012 SOCRATES TALAVERA MD 272.1 HYPERTRIGLYCERIDEMIA 01/23/2012 SOCRATES TALAVERA MD 276.8 HYPOKALEMIA 01/23/2012 SOCRATES TALAVERA MD 338.4 CHRONIC PAIN SYNDROME 01/23/2012 RALPH LLANES JAMI A 272.1 HYPERTRIGLYCERIDEMIA 01/23/2012 RALPH LLANES JAMI A 276.8 HYPOKALEMIA 01/23/2012 RALPH LLANES JAMI A 338.4 CHRONIC PAIN SYNDROME 01/23/2012 SOCRATES TALAVERA MD 272.1 HYPERTRIGLYCERIDEMIA 01/23/2012 SOCRATES TALAVERA MD 276.8 HYPOKALEMIA 01/23/2012 SOCRATES TALAVERA MD 338.4 CHRONIC PAIN SYNDROME 01/23/2012 PETTY DO, SANDEEP K 272.1 HYPERTRIGLYCERIDEMIA 01/23/2012 PETTY DO, SANDEEP K 276.8 HYPOKALEMIA 01/23/2012 PETTY DO, SANDEEP K 338.4 CHRONIC PAIN SYNDROME 01/23/2012 RALPH LLANES, JAMI A 272.1 HYPERTRIGLYCERIDEMIA 01/23/2012 RALPH LLANES, JAMI A 276.8 HYPOKALEMIA 01/23/2012 RALPH LLANES, JAMI A 338.4 CHRONIC PAIN SYNDROME 01/23/2012 PETTY DO, SANDEEP K 272.1 HYPERTRIGLYCERIDEMIA 01/23/2012 PETTY DO, SANDEEP K 276.8 HYPOKALEMIA 01/23/2012 PETTY DO, SANDEEP K 338.4 CHRONIC PAIN SYNDROME 01/23/2012 PETTY DO, SANDEEP K 272.1 HYPERTRIGLYCERIDEMIA 01/23/2012 PETTY DO, SANDEEP K 276.8 HYPOKALEMIA 01/23/2012 PETTY DO, SANDEEP K 338.4 CHRONIC PAIN SYNDROME 01/23/2012 ASHLEY BRUNO MD N 272.1 HYPERTRIGLYCERIDEMIA 01/23/2012 ASHLEY BRUNO MD N 276.8 HYPOKALEMIA 01/23/2012 ASHLEY BRUNO MD N 338.4 CHRONIC PAIN SYNDROME 01/23/2012 CHADWICK COOLER ROOM WORKER, LOVE R 272.1 HYPERTRIGLYCERIDEMIA 01/23/2012 CHADWICK COOLER ROOM WORKER, LOVE R 276.8 HYPOKALEMIA 01/23/2012 CHADWICK COOLER ROOM WORKER, LOVE R 338.4 CHRONIC PAIN SYNDROME 01/23/2012 PETTY DO, SANDEEP K 272.1 HYPERTRIGLYCERIDEMIA 01/23/2012 PETTY DO, SANDEEP K 276.8 HYPOKALEMIA 01/23/2012 PETTY DO, SANDEEP K 338.4 CHRONIC PAIN SYNDROME 01/23/2012 ASHLEY BRUNO MD N 272.1 HYPERTRIGLYCERIDEMIA 01/23/2012 ASHLEY BRUNO MD N 276.8 HYPOKALEMIA 01/23/2012 ASHLEY BRUNO MD N 338.4 CHRONIC PAIN SYNDROME 01/23/2012 ASHLEY BRUNO MD N 272.1 HYPERTRIGLYCERIDEMIA 01/23/2012 ASHLEY BRUNO MD N 276.8 HYPOKALEMIA 01/23/2012 ASHLEY BRUNO MD N 338.4 CHRONIC PAIN SYNDROME 01/23/2012 ASHLEY BRUNO MD N 272.1 HYPERTRIGLYCERIDEMIA 01/23/2012 ASHLEY BRUNO MD N 276.8 HYPOKALEMIA 01/23/2012 ASHLEY BRUNO MD N 338.4 CHRONIC PAIN SYNDROME 01/23/2012 ASHLEY BRUNO MD N 272.1 HYPERTRIGLYCERIDEMIA 01/23/2012 ASHLEY BRUNO MD N 276.8 HYPOKALEMIA 01/23/2012 ASHLEY BRUNO MD N 338.4 CHRONIC PAIN SYNDROME 01/23/2012 ASHLEY BRUNO MD N 272.1 HYPERTRIGLYCERIDEMIA 01/23/2012 ASHLEY BRUNO MD N 276.8 HYPOKALEMIA 01/23/2012 ASHLEY BRUNO MD N 338.4 CHRONIC PAIN SYNDROME 01/23/2012 ASHLEY BRUNO MD N 272.1 HYPERTRIGLYCERIDEMIA 01/23/2012 ELMO BRUNO MDY N 276.8 HYPOKALEMIA 01/23/2012 ELMO BRUNO MDY N 338.4 CHRONIC PAIN SYNDROME 01/23/2012 ELMO BRUNO MDY N 272.1 HYPERTRIGLYCERIDEMIA 01/23/2012 ELMO BRUNO MDY N 276.8 HYPOKALEMIA 01/23/2012 ELMO BRUNO MDY N 338.4 CHRONIC PAIN SYNDROME 01/23/2012 ELMO BRUNO MDY N 272.1 HYPERTRIGLYCERIDEMIA 01/23/2012 ELMO BRNUO MDY N 276.8 HYPOKALEMIA 01/23/2012 ELMO BRUNO MDY N 338.4 CHRONIC PAIN SYNDROME 01/23/2012 RALPH COOLER ROOM WORKER, JAMI A 272.1 HYPERTRIGLYCERIDEMIA 01/23/2012 RALPHHELEN CASEN, JAMI A 276.8 HYPOKALEMIA 01/23/2012 RALPHHELEN LLANES, JAMI A 338.4 CHRONIC PAIN SYNDROME 01/23/2012 ASHLEY BRUNO MD N 272.1 HYPERTRIGLYCERIDEMIA 01/23/2012 ASHLEY BRUNO MD N 276.8 HYPOKALEMIA 01/23/2012 ELMO BRUNO MDY N 338.4 CHRONIC PAIN SYNDROME 01/23/2012 ELMO BRUNO MDY N 272.1 HYPERTRIGLYCERIDEMIA 01/23/2012 ASHLEY BRUNO MD N 276.8 HYPOKALEMIA 01/23/2012 ELMO BRUNO MDY N 338.4 CHRONIC PAIN SYNDROME 01/23/2012 ELMO BRUNO MDY N 272.1 HYPERTRIGLYCERIDEMIA 01/23/2012 ASHLEY BRUNO MD N 276.8 HYPOKALEMIA 01/23/2012 ELMO BRUNO MDY N 338.4 CHRONIC PAIN SYNDROME 01/23/2012 ELMO BRUNO MDY N 272.1 HYPERTRIGLYCERIDEMIA 01/23/2012 ASHLEY BRUNO MD N 276.8 HYPOKALEMIA 01/23/2012 ELMO BRUNO MDY N 338.4 CHRONIC PAIN SYNDROME 01/23/2012 ELMO BRUNO MDY N 272.1 HYPERTRIGLYCERIDEMIA 01/23/2012 ELMO BRUNO MDY N 276.8 HYPOKALEMIA 01/23/2012 ELMO BRUNO MDY N 338.4 CHRONIC PAIN SYNDROME 01/23/2012 ASHLEY BRUNO MD 272.1 HYPERTRIGLYCERIDEMIA 01/23/2012 ASHLEY BRUNO MD N 276.8 HYPOKALEMIA 01/23/2012 ASHLEY BRUNO MD 338.4 CHRONIC PAIN SYNDROME 04/05/2012 GAGANDEEP FLORES APRN R 786.50 chest pain or discomfort 04/05/2012 AFTAB PEREIRA MD 786.50 chest pain or discomfort 04/05/2012 SOCRATES TALAVERA MD 786.50 chest pain or discomfort 04/05/2012 786.50 chest pain or discomfort 04/05/2012 786.50 chest pain or discomfort 04/05/2012 786.50 chest pain or discomfort 04/05/2012 SOCRATES TALAVERA MD 786.50 chest pain or discomfort 04/05/2012 SOCRATES TALAVERA MD 786.50 chest pain or discomfort 04/05/2012 SOCRATES TALAVERA MD 786.50 chest pain or discomfort 04/05/2012 JAMI ROSAS APRN A 786.50 chest pain or discomfort 04/05/2012 SOCRATES TALAVERA MD 786.50 chest pain or discomfort 04/05/2012 PETTY DO, SANDEEP K 786.50 chest pain or discomfort 04/05/2012 JAMI ROSAS APRN A 786.50 chest pain or discomfort 04/05/2012 PETTY DO, SANDEEP K 786.50 chest pain or discomfort 04/05/2012 PETTY DO, SANDEEP K 786.50 chest pain or discomfort 04/05/2012 ASHLEY BRUNO MD 786.50 chest pain or discomfort 04/05/2012 LOVE GENAO APRN 786.50 chest pain or discomfort 04/05/2012 PETTY DO, SANDEEP K 786.50 chest pain or discomfort 04/05/2012 ASHLEY BRUNO MD 786.50 chest pain or discomfort 04/05/2012 ASHLEY BRUNO MD 786.50 chest pain or discomfort 04/05/2012 ASHLEY BRUNO MD 786.50 chest pain or discomfort 04/05/2012 ASHLEY BRUNO MD 786.50 CHEST PAIN OR DISCOMFORT 04/05/2012 ASHLEY BRUNO MD 786.50 CHEST PAIN OR DISCOMFORT 04/05/2012 ASHLEY BRUNO MD 786.50 CHEST PAIN OR DISCOMFORT 04/05/2012 ASHLEY BRUNO MD 786.50 CHEST PAIN OR DISCOMFORT 04/05/2012 ASHLEY BRUNO MD 786.50 CHEST PAIN OR DISCOMFORT 04/05/2012 JAMI ROSAS APRN A 786.50 CHEST PAIN OR DISCOMFORT 04/05/2012 ASHLEY BRUNO MD 786.50 CHEST PAIN OR DISCOMFORT 04/05/2012 ASHLEY BRUNO MD 786.50 CHEST PAIN OR DISCOMFORT 04/05/2012 ASHLEY BRUNO MD 786.50 CHEST PAIN OR DISCOMFORT 04/05/2012 ASHLEY BRUNO MD 786.50 CHEST PAIN OR DISCOMFORT 04/05/2012 ASHLEY BRUNO MD 786.50 CHEST PAIN OR DISCOMFORT 04/05/2012 ASHLEY BRUNO MD 786.50 CHEST PAIN OR DISCOMFORT 10/18/2012 300.02 AN GEN ANXIETY 10/18/2012 SOCRATES TALAVERA MD 300.02 AN GEN ANXIETY 10/18/2012 SOCRATES TALAVERA MD 300.02 AN GEN ANXIETY 10/18/2012 SOCRATES TALAVERA MD 300.02 AN GEN ANXIETY 10/18/2012 JAMI ROSAS APRN A 300.02 AN GEN ANXIETY 10/18/2012 SOCRATES TALAVERA MD 300.02 AN GEN ANXIETY 10/18/2012 SANDEEP PETTY DO K 300.02 AN GEN ANXIETY 10/18/2012 JAMI ROSAS APRN A 300.02 AN GEN ANXIETY 10/18/2012 SANDEEP PETTY DO K 300.02 AN GEN ANXIETY 10/18/2012 SANDEEP PETTY DO K 300.02 AN GEN ANXIETY 10/18/2012 ASHLEY BRUNO MD 300.02 AN GEN ANXIETY 10/18/2012 LOVE GENAO APRN 300.02 AN GEN ANXIETY 10/18/2012 SANDEEP PETTY DO K 300.02 AN GEN ANXIETY 10/18/2012 ASHLEY BRUNO MD 300.02 AN GEN ANXIETY 10/18/2012 ASHLEY BRUNO MD 300.02 AN GEN ANXIETY 10/18/2012 ASHLEY BRUNO MD 300.02 AN GEN ANXIETY 10/18/2012 ASHLEY BRUNO MD 300.02 AN GEN ANXIETY 10/18/2012 KIANA MD, ASHLEY N 300.02 AN GEN ANXIETY 10/18/2012 ASHLEY BRUNO MD N 300.02 AN GEN ANXIETY 10/18/2012 ASHLEY BRUNO MD 300.02 AN GEN ANXIETY 10/18/2012 ASHLEY BRUNO MD N 300.02 AN GEN ANXIETY 10/18/2012 JAMI ORSAS APRN A 300.02 AN GEN ANXIETY 10/18/2012 ASHLEY BRUNO MD N 300.02 AN GEN ANXIETY 10/18/2012 ASHLEY BRUNO MD N 300.02 AN GEN ANXIETY 10/18/2012 ASHLEY BRUNO MD N 300.02 AN GEN ANXIETY 10/18/2012 ASHLEY BRUNO MD N 300.02 AN GEN ANXIETY 10/18/2012 ASHLEY BRUNO MD N 300.02 AN GEN ANXIETY 10/18/2012 ASHLEY BRUNO MD 300.02 AN GEN ANXIETY 10/20/2012 V73.81 HPV SCREENING 10/20/2012 V76.10 BREAST CANCER SCREENING 10/20/2012 V76.2 CERVICAL CANCER SCREENING (PAP SMEAR) 10/20/2012 SOCRATES TALAVERA MD V73.81 HPV SCREENING 10/20/2012 SOCRATES TALAVERA MD V76.10 BREAST CANCER SCREENING 10/20/2012 SOCRATES TALAVERA MD V76.2 CERVICAL CANCER SCREENING (PAP SMEAR) 10/20/2012 SOCRATES TALAVERA MD V73.81 HPV SCREENING 10/20/2012 SOCRATES TALAVERA MD V76.10 BREAST CANCER SCREENING 10/20/2012 SOCRATES TALAVERA MD V76.2 CERVICAL CANCER SCREENING (PAP SMEAR) 10/20/2012 SOCRATES TALAVERA MD V73.81 HPV SCREENING 10/20/2012 SOCRATES TALAVERA MD V76.10 BREAST CANCER SCREENING 10/20/2012 SOCRATES TALAVERA MD V76.2 CERVICAL CANCER SCREENING (PAP SMEAR) 10/20/2012 JAMI ROSAS APRN V73.81 HPV SCREENING 10/20/2012 JAMI ROSAS APRN V76.10 BREAST CANCER SCREENING 10/20/2012 JAMI ROSAS APRN A V76.2 CERVICAL CANCER SCREENING (PAP SMEAR) 10/20/2012 SOCRATES TALAVERA MD3.81 HPV SCREENING 10/20/2012 SOCRATES TALAVERA MD V76.10 BREAST CANCER SCREENING 10/20/2012 SOCRATES TALAVERA MD V76.2 CERVICAL CANCER SCREENING (PAP SMEAR) 10/20/2012 MALINDA BURT SANDEEP K V73.81 HPV SCREENING 10/20/2012 PETTY DO SANDEEP K V76.10 BREAST CANCER SCREENING 10/20/2012 MALINDA BURT SANDEEP K V76.2 CERVICAL CANCER SCREENING (PAP SMEAR) 10/20/2012 MARYAN ROSAS APRNIDI A V73.81 HPV SCREENING 10/20/2012 RALPH APRN, JAMI A V76.10 BREAST CANCER SCREENING 10/20/2012 RALPH LLANES JAMI A V76.2 CERVICAL CANCER SCREENING (PAP SMEAR) 10/20/2012 MALINDA BURT SANDEEP K V73.81 HPV SCREENING 10/20/2012 MALINDA BURT SANDEEP K V76.10 BREAST CANCER SCREENING 10/20/2012 MALINDA BURT SANDEEP K V76.2 CERVICAL CANCER SCREENING (PAP SMEAR) 10/20/2012 MALINDA BURT SANDEEP K V73.81 HPV SCREENING 10/20/2012 MALINDA BURT SANDEEP K V76.10 BREAST CANCER SCREENING 10/20/2012 MALINDA BURT SANDEEP K V76.2 CERVICAL CANCER SCREENING (PAP SMEAR) 10/20/2012 ASHLEY BRUNO MD V73.81 HPV SCREENING 10/20/2012 ASHLEY BRUNO MD V76.10 BREAST CANCER SCREENING 10/20/2012 ASHLEY BRUNO MD V76.2 CERVICAL CANCER SCREENING (PAP SMEAR) 10/20/2012 CHADWICK LLANES LOVE R V73.81 HPV SCREENING 10/20/2012 CHADWICK LLANES LOVE R V76.10 BREAST CANCER SCREENING 10/20/2012 CHADWICK LLANES LOVE R V76.2 CERVICAL CANCER SCREENING (PAP SMEAR) 10/20/2012 PARIS PETTY DOA K V73.81 HPV SCREENING 10/20/2012 PARIS PETTY DOA K V76.10 BREAST CANCER SCREENING 10/20/2012 PARIS PETTY DOA K V76.2 CERVICAL CANCER SCREENING (PAP SMEAR) 10/20/2012 ASHLEY BRUNO MD V73.81 HPV SCREENING 10/20/2012 KIANA MD, ASHLEY N V76.10 BREAST CANCER SCREENING 10/20/2012 ASHLEY BRUNO MD V76.2 CERVICAL CANCER SCREENING (PAP SMEAR) 10/20/2012 ASHLEY BRUNO MD V73.81 HPV SCREENING 10/20/2012 ASHLYE BRUNO MD V76.10 BREAST CANCER SCREENING 10/20/2012 ASHLEY BRUNO MD V76.2 CERVICAL CANCER SCREENING (PAP SMEAR) 10/20/2012 ASHLEY BRUNO MD V73.81 HPV SCREENING 10/20/2012 ASHLEY BRUNO MD V76.10 BREAST CANCER SCREENING 10/20/2012 ASHLEY BRUNO MD V76.2 CERVICAL CANCER SCREENING (PAP SMEAR) 10/20/2012 ASHLEY BRUNO MD V73.81 HPV SCREENING 10/20/2012 ASHLEY BRUNO MD V76.10 BREAST CANCER SCREENING 10/20/2012 ASHLEY BRUON MD V76.2 CERVICAL CANCER SCREENING (PAP SMEAR) 10/20/2012 ASHLEY BRUNO MD V73.81 HPV SCREENING 10/20/2012 ASHLEY BRUNO MD V76.10 BREAST CANCER SCREENING 10/20/2012 ASHLEY BRUNO MD V76.2 CERVICAL CANCER SCREENING (PAP SMEAR) 10/20/2012 ASHLEY BRUNO MD V73.81 HPV SCREENING 10/20/2012 ASHLEY BRUNO MD V76.10 BREAST CANCER SCREENING 10/20/2012 ASHLEY BRUNO MD V76.2 CERVICAL CANCER SCREENING (PAP SMEAR) 10/20/2012 ASHLEY BRUNO MD V73.81 HPV SCREENING 10/20/2012 ASHLEY BRUNO MD V76.10 BREAST CANCER SCREENING 10/20/2012 ASHLEY BRUNO MD V76.2 CERVICAL CANCER SCREENING (PAP SMEAR) 10/20/2012 ASHLEY BRUNO MD V73.81 HPV SCREENING 10/20/2012 ASHLEY BRUNO MD V76.10 BREAST CANCER SCREENING 10/20/2012 ASHLEY BRUNO MD V76.2 CERVICAL CANCER SCREENING (PAP SMEAR) 10/20/2012 JAMI ROSAS APRN V73.81 HPV SCREENING 10/20/2012 JAMI ROSAS APRN A V76.10 BREAST CANCER SCREENING 10/20/2012 JAMI ROSAS APRN A V76.2 CERVICAL CANCER SCREENING (PAP SMEAR) 10/20/2012 ASHLEY BRUNO MD V73.81 HPV SCREENING 10/20/2012 ASHLEY BRUNO MD V76.10 BREAST CANCER SCREENING 10/20/2012 ASHLEY BRUNO MD V76.2 CERVICAL CANCER SCREENING (PAP SMEAR) 10/20/2012 ASHLEY BRUNO MD V73.81 HPV SCREENING 10/20/2012 ASHLEY BRUNO MD V76.10 BREAST CANCER SCREENING 10/20/2012 ASHLEY BRUNO MD V76.2 CERVICAL CANCER SCREENING (PAP SMEAR) 10/20/2012 ASHLEY BRUNO MD V73.81 HPV SCREENING 10/20/2012 ASHLEY BRUNO MD V76.10 BREAST CANCER SCREENING 10/20/2012 ASHLEY BRUNO MD V76.2 CERVICAL CANCER SCREENING (PAP SMEAR) 10/20/2012 ASHLEY BRUNO MD V73.81 HPV SCREENING 10/20/2012 ASHLEY BRUNO MD V76.10 BREAST CANCER SCREENING 10/20/2012 ASHLEY BRUNO MD V76.2 CERVICAL CANCER SCREENING (PAP SMEAR) 10/20/2012 ASHLEY BRUNO MD V73.81 HPV SCREENING 10/20/2012 ASHLEY BRUNO MD V76.10 BREAST CANCER SCREENING 10/20/2012 ASHLEY BRUNO MD V76.2 CERVICAL CANCER SCREENING (PAP SMEAR) 10/20/2012 ASHLEY BRUNO MD V73.81 HPV SCREENING 10/20/2012 ASHLEY BRUNO MD V76.10 BREAST CANCER SCREENING 10/20/2012 ASHLEY BRUNO MD V76.2 CERVICAL CANCER SCREENING (PAP SMEAR) 05/18/2013 SOCRATES TALAVERA MD 719.46 joint pain in the left knee 05/18/2013 SOCRATES TALAVERA MD 724.2 lower back pain 05/18/2013 JAMI ROSAS APRN A 719.46 joint pain in the left knee 05/18/2013 RALPH [employer]ER [employer] WORKER, JAMI A 724.2 lower back pain 05/18/2013 SOCRATES TALAVERA MD 719.46 joint pain in the left knee 05/18/2013 SOCRATES TALAVERA MD 724.2 lower back pain 05/18/2013 PETTY DO, SANDEEP K 719.46 joint pain in the left knee 05/18/2013 PETTY DO, SANDEEP K 724.2 lower back pain 05/18/2013 RALPH LLANES, JAMI A 719.46 joint pain in the left knee 05/18/2013 RALPH APRN, JAMI A 724.2 lower back pain 05/18/2013 PETTY DO, SANDEEP K 719.46 joint pain in the left knee 05/18/2013 PETTY DO, SANDEEP K 724.2 lower back pain 05/18/2013 PETTY DO, SANDEEP K 719.46 joint pain in the left knee 05/18/2013 PETTY DO, SANDEEP K 724.2 lower back pain 05/18/2013 ASHLEY BRUNO MD 719.46 joint pain in the left knee 05/18/2013 ASHLEY BRUNO MD N 724.2 lower back pain 05/18/2013 CHADWICK LLANES LOVE R 719.46 joint pain in the left knee 05/18/2013 CHADWICK LLANES LOVE R 724.2 lower back pain 05/18/2013 PETTY DO, SANDEEP K 719.46 joint pain in the left knee 05/18/2013 PETTY DO, SANDEEP K 724.2 lower back pain 05/18/2013 ASHLEY BRUNO MD N 719.46 joint pain in the left knee 05/18/2013 ASHLEY BRUNO MD N 724.2 lower back pain 05/18/2013 ASHLEY BRUNO MD N 719.46 joint pain in the left knee 05/18/2013 ASHLEY BRUNO MD N 724.2 lower back pain 05/18/2013 ASHLEY BRUNO MD N 719.46 joint pain in the left knee 05/18/2013 ASHLEY BRUNO MD N 724.2 lower back pain 05/18/2013 ASHLEY BRUNO MD 719.46 joint pain in the left knee 05/18/2013 KIANA MD, ASHLEY N 724.2 lower back pain 05/18/2013 ASHLEY BRUNO MD N 719.46 joint pain in the left knee 05/18/2013 ASHLEY BRUNO MD N 724.2 lower back pain 05/18/2013 EMLO BRUNO MDY N 719.46 joint pain in the left knee 05/18/2013 ELMO BRUNO MDY N 724.2 lower back pain 05/18/2013 ASHLEY BRUNO MD N 719.46 joint pain in the left knee 05/18/2013 ASHLEY BRUNO MD N 724.2 lower back pain 05/18/2013 ELMO BRUNO MDY N 719.46 joint pain in the left knee 05/18/2013 ASHLEY BRUNO MD N 724.2 lower back pain 05/18/2013 JAMI ROSAS APRN A 719.46 joint pain in the left knee 05/18/2013 MARYAN ROSAS APRNIDI A 724.2 lower back pain 05/18/2013 ASHLEY BRUNO MD N 719.46 joint pain in the left knee 05/18/2013 ASHLEY BRUNO MD N 724.2 lower back pain 05/18/2013 ASHLEY BRUNO MD N 719.46 joint pain in the left knee 05/18/2013 ASHLEY BRUNO MD N 724.2 lower back pain 05/18/2013 ELMO BRUNO MDY N 719.46 joint pain in the left knee 05/18/2013 ASHLEY BRUNO MD N 724.2 lower back pain 05/18/2013 ASHLEY BRUNO MD N 719.46 joint pain in the left knee 05/18/2013 ASHLEY BRUNO MD N 724.2 lower back pain 05/18/2013 ELMO BRUNO MDY N 719.46 joint pain in the left knee 05/18/2013 ELMO BRUNO MDY N 724.2 lower back pain 05/18/2013 ELMO BRUNO MDY N 719.46 joint pain in the left knee 05/18/2013 ELMO BRUNO MDY N 724.2 lower back pain 05/19/2013 MARYAN ROSAS APRNIDI A 789.04 ABDOMINAL PAIN LEFT LOWER QUADRANT 05/19/2013 SADAF MONZON, SOCRATES M 789.04 ABDOMINAL PAIN LEFT LOWER QUADRANT 05/19/2013 PETTY DO, SANDEEP K 789.04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 hemoglobin (mass per erythrocyte) 29 pg 25-34 Automated erythrocyte mean corpuscular hemoglobin concentration measurement ( mass/volume) 35 g/dL 32-36 Automated erythrocyte distribution width ratio 14.2 % 10.0-14.5 Automated blood platelet count (count/volume) 278 10*3/uL 130-400 Automated blood platelet mean volume measurement 9.4 [foz_us] 7.4-10.4 Automated blood neutrophils/100 leukocytes 87 % 42-75 Automated blood lymphocytes/100 leukocytes 11 % 12-44 Blood monocytes/100 leukocytes 2 % 0-12 Automated blood eosinophils/100 leukocytes 0 % 0-10 Automated blood basophils/100 leukocytes 0 % 0-10 Blood neutrophils automated count (number/volume) 4.0 10*3 1.8-7.8 Blood lymphocytes automated count (number/volume) 0.5 10*3 1.0-4.0 Blood monocytes automated count (number/volume) 0.1 10*3 0.0-1.0 Automated eosinophil count 0.0 10*3/uL 0.0-0.3 Automated blood basophil count (count/volume) 0.0 10*3/uL 0.0-0.1 Comprehensive metabolic panel - 09/14/17 17:25 Serum or plasma sodium measurement (moles/volume) 138 mmol/L 135-145 Serum or plasma potassium measurement (moles/volume) 3.3 mmol/L 3.6-5.0 Serum or plasma chloride measurement (moles/volume) 102 mmol/L 98-107 Carbon dioxide 22 mmol/L 21-32 Serum or plasma anion gap determination (moles/volume) 14 mmol/L 5-14 Serum or plasma urea nitrogen measurement (mass/volume) 10 mg/dL 7-18 Serum or plasma creatinine measurement (mass/volume) 1.00 mg/dL 0.60-1.30 Serum or plasma urea nitrogen/creatinine mass ratio 10 NRG Serum or plasma creatinine measurement with calculation of estimated glomerular filtration rate 58 NRG Serum or plasma glucose measurement (mass/volume) 259 mg/dL 70-105 Serum or plasma calcium measurement (mass/volume) 9.0 mg/dL 8.5-10.1 Serum or plasma total bilirubin measurement (mass/volume) 0.3 mg/dL 0.1-1.0 Serum or plasma alkaline phosphatase measurement (enzymatic activity/volume) 56 U/L 40-136 Serum or plasma aspartate aminotransferase measurement (enzymatic activity/ volume) 15 U/L 5-34 Serum or plasma alanine aminotransferase measurement (enzymatic activity/volume ) 14 U/L 0-55 Serum or plasma protein measurement (mass/volume) 6.9 g/dL 6.4-8.2 Serum or plasma albumin measurement (mass/volume) 3.8 g/dL 3.2-4.5 Blood manual differential performed detection - 09/14/17 17:25 Blood monocytes/100 leukocytes 2 % NRG Manual blood segmented neutrophils/100 leukocytes 81 % NRG Blood band neutrophils/100 leukocytes 6 % NRG Manual blood lymphocytes/100 leukocytes 11 % NRG Manual eosinophils/100 leukocytes in nose 0 % NRG Manual blood basophils/100 leukocytes 0 % NRG Blood erythrocyte morphology finding identification NORMAL NR Complete blood count (CBC) with automated white blood cell (WBC) differential - 07/14/18 20:10 Blood leukocytes automated count (number/volume) 7.0 10*3/uL 4.3-11.0 Blood erythrocytes automated count (number/volume) 4.73 10*6/uL 4.35-5.85 Venous blood hemoglobin measurement (mass/volume) 12.3 g/dL 11.5-16.0 Blood hematocrit (volume fraction) 39 % 35-52 Automated erythrocyte mean corpuscular volume 82 [foz_us] 80-99 Automated erythrocyte mean corpuscular hemoglobin (mass per erythrocyte) 26 pg 25-34 Automated erythrocyte mean corpuscular hemoglobin concentration measurement ( mass/volume) 32 g/dL 32-36 Automated erythrocyte distribution width ratio 17.2 % 10.0-14.5 Automated blood platelet count (count/volume) 385 10*3/uL 130-400 Automated blood platelet mean volume measurement 9.9 [foz_us] 7.4-10.4 Automated blood neutrophils/100 leukocytes 36 % 42-75 Automated blood lymphocytes/100 leukocytes 45 % 12-44 Blood monocytes/100 leukocytes 14 % 0-12 Automated blood eosinophils/100 leukocytes 5 % 0-10 Automated blood basophils/100 leukocytes 1 % 0-10 Blood neutrophils automated count (number/volume) 2.5 10*3 1.8-7.8 Blood lymphocytes automated count (number/volume) 3.1 10*3 1.0-4.0 Blood monocytes automated count (number/volume) 1.0 10*3 0.0-1.0 Automated eosinophil count 0.3 10*3/uL 0.0-0.3 Automated blood basophil count (count/volume) 0.1 10*3/uL 0.0-0.1 PT panel in platelet poor plasma by coagulation assay - 07/14/18 20:10 Prothrombin time (PT) in platelet poor plasma by coagulation assay 13.8 s 12.2-14.7 INR in platelet poor plasma or blood by coagulation assay 1.0 0.8-1.4 Activated partial thromboplastin time (aPTT) in platelet poor plasma bycoagulation assay - 07/14/18 20:10 Activated partial thromboplastin time (aPTT) in platelet poor plasma bycoagulation assay 30 s 24-35 Comprehensive metabolic panel - 07/14/18 20:10 Serum or plasma sodium measurement (moles/volume) 141 mmol/L 135-145 Serum or plasma potassium measurement (moles/volume) 3.7 mmol/L 3.6-5.0 Serum or plasma chloride measurement (moles/volume) 104 mmol/L 98-107 Carbon dioxide 22 mmol/L 21-32 Serum or plasma anion gap determination (moles/volume) 15 mmol/L 5-14 Serum or plasma urea nitrogen measurement (mass/volume) 12 mg/dL 7-18 Serum or plasma creatinine measurement (mass/volume) 0.89 mg/dL 0.60-1.30 Serum or plasma urea nitrogen/creatinine mass ratio 13 NRG Serum or plasma creatinine measurement with calculation of estimated glomerular filtration rate > NRG Serum or plasma glucose measurement (mass/volume) 98 mg/dL 70-105 Serum or plasma calcium measurement (mass/volume) 9.7 mg/dL 8.5-10.1 Serum or plasma total bilirubin measurement (mass/volume) 0.3 mg/dL 0.1-1.0 Serum or plasma alkaline phosphatase measurement (enzymatic activity/volume) 90 U/L 40-136 Serum or plasma aspartate aminotransferase measurement (enzymatic activity/ volume) 27 U/L 5-34 Serum or plasma alanine aminotransferase measurement (enzymatic activity/volume ) 23 U/L 0-55 Serum or plasma protein measurement (mass/volume) 7.8 g/dL 6.4-8.2 Serum or plasma albumin measurement (mass/volume) 4.3 g/dL 3.2-4.5 CALCIUM CORRECTED 9.5 mg/dL 8.5-10.1 Magnesium - 07/14/18 20:10 Magnesium 2.6 mg/dL 1.8-2.4 Serum or plasma ethanol measurement (mass/volume) - 07/14/18 20:10 Serum or plasma ethanol measurement (mass/volume) < mg/dL <10 Complete blood count (CBC) with automated white blood cell (WBC) differential - 07/15/18 06:05 Blood leukocytes automated count (number/volume) 5.6 10*3/uL 4.3-11.0 Blood erythrocytes automated count (number/volume) 4.27 10*6/uL 4.35-5.85 Venous blood hemoglobin measurement (mass/volume) 11.0 g/dL 11.5-16.0 Blood hematocrit (volume fraction) 35 % 35-52 Automated erythrocyte mean corpuscular volume 82 [foz_us] 80-99 Automated erythrocyte mean corpuscular hemoglobin (mass per erythrocyte) 26 pg 25-34 Automated erythrocyte mean corpuscular hemoglobin concentration measurement ( mass/volume) 31 g/dL 32-36 Automated erythrocyte distribution width ratio 17.1 % 10.0-14.5 Automated blood platelet count (count/volume) 287 10*3/uL 130-400 Automated blood platelet mean volume measurement 10.1 [foz_us] 7.4-10.4 Automated blood neutrophils/100 leukocytes 49 % 42-75 Automated blood lymphocytes/100 leukocytes 34 % 12-44 Blood monocytes/100 leukocytes 13 % 0-12 Automated blood eosinophils/100 leukocytes 4 % 0-10 Automated blood basophils/100 leukocytes 1 % 0-10 Blood neutrophils automated count (number/volume) 2.7 10*3 1.8-7.8 Blood lymphocytes automated count (number/volume) 1.9 10*3 1.0-4.0 Blood monocytes automated count (number/volume) 0.7 10*3 0.0-1.0 Automated eosinophil count 0.2 10*3/uL 0.0-0.3 Automated blood basophil count (count/volume) 0.0 10*3/uL 0.0-0.1 Whole blood basic metabolic panel - 07/15/18 06:05 Serum or plasma sodium measurement (moles/volume) 141 mmol/L 135-145 Serum or plasma potassium measurement (moles/volume) 3.5 mmol/L 3.6-5.0 Serum or plasma chloride measurement (moles/volume) 107 mmol/L 98-107 Carbon dioxide 23 mmol/L 21-32 Serum or plasma anion gap determination (moles/volume) 11 mmol/L 5-14 Serum or plasma urea nitrogen measurement (mass/volume) 10 mg/dL 7-18 Serum or plasma creatinine measurement (mass/volume) 0.78 mg/dL 0.60-1.30 Serum or plasma urea nitrogen/creatinine mass ratio 13 NRG Serum or plasma creatinine measurement with calculation of estimated glomerular filtration rate > NRG Serum or plasma glucose measurement (mass/volume) 85 mg/dL 70-105 Serum or plasma calcium measurement (mass/volume) 9.0 mg/dL 8.5-10.1 VITAMIN D 25-HYDROXY - 07/15/18 14:00 VITAMIN D 25-HYDROXY (TOTAL) 23.2 % 30.0-100.0 Complete blood count (CBC) with automated white blood cell (WBC) differential - 07/16/18 04:15 Blood leukocytes automated count (number/volume) 4.9 10*3/uL 4.3-11.0 Blood erythrocytes automated count (number/volume) 4.39 10*6/uL 4.35-5.85 Venous blood hemoglobin measurement (mass/volume) 11.3 g/dL 11.5-16.0 Blood hematocrit (volume fraction) 36 % 35-52 Automated erythrocyte mean corpuscular volume 82 [foz_us] 80-99 Automated erythrocyte mean corpuscular hemoglobin (mass per erythrocyte) 26 pg 25-34 Automated erythrocyte mean corpuscular hemoglobin concentration measurement ( mass/volume) 31 g/dL 32-36 Automated erythrocyte distribution width ratio 16.8 % 10.0-14.5 Automated blood platelet count (count/volume) 316 10*3/uL 130-400 Automated blood platelet mean volume measurement 10.3 [foz_us] 7.4-10.4 Automated blood neutrophils/100 leukocytes 74 % 42-75 Automated blood lymphocytes/100 leukocytes 19 % 12-44 Blood monocytes/100 leukocytes 7 % 0-12 Automated blood eosinophils/100 leukocytes 0 % 0-10 Automated blood basophils/100 leukocytes 0 % 0-10 Blood neutrophils automated count (number/volume) 3.6 10*3 1.8-7.8 Blood lymphocytes automated count (number/volume) 0.9 10*3 1.0-4.0 Blood monocytes automated count (number/volume) 0.4 10*3 0.0-1.0 Automated eosinophil count 0.0 10*3/uL 0.0-0.3 Automated blood basophil count (count/volume) 0.0 10*3/uL 0.0-0.1 Whole blood basic metabolic panel - 07/16/18 04:15 Serum or plasma sodium measurement (moles/volume) 140 mmol/L 135-145 Serum or plasma potassium measurement (moles/volume) 4.2 mmol/L 3.6-5.0 Serum or plasma chloride measurement (moles/volume) 107 mmol/L 98-107 Carbon dioxide 22 mmol/L 21-32 Serum or plasma anion gap determination (moles/volume) 11 mmol/L 5-14 Serum or plasma urea nitrogen measurement (mass/volume) 8 mg/dL 7-18 Serum or plasma creatinine measurement (mass/volume) 0.76 mg/dL 0.60-1.30 Serum or plasma urea nitrogen/creatinine mass ratio 11 NRG Serum or plasma creatinine measurement with calculation of estimated glomerular filtration rate > NRG Serum or plasma glucose measurement (mass/volume) 115 mg/dL 70-105 Serum or plasma calcium measurement (mass/volume) 9.4 mg/dL 8.5-10.1 Encounters ACCT No. Visit Date/Time Discharge Status Pt. Type Provider Facility Loc./Unit Complaint [id number] 06/23/2014 14:01:00 06/23/2014 23:59:59 CLS Outpatient ASHLEY BRUNO MD [id number] 04/18/2014 15:02:00 04/18/2014 23:59:59 CLS Outpatient ASHLEY BRUNO MD [id number] 03/14/2014 16:44:00 03/14/2014 23:59:59 CLS Outpatient ASHLEY BRUNO MD [id number] 02/27/2014 08:58:00 02/27/2014 23:59:59 CLS Outpatient ASHLEY BRUNO MD [id number] 02/16/2014 17:18:00 02/16/2014 23:59:59 CLS Outpatient ASHLEY BRUNO MD [id number] 02/08/2014 10:09:00 02/08/2014 23:59:59 CLS Outpatient ASHLEY BRUNO MD [id number] 01/26/2014 11:00:00 01/26/2014 23:59:59 CLS Outpatient JAMI ROSAS APRN [id number] 01/19/2014 16:23:00 01/19/2014 23:59:59 CLS Outpatient ASHLEY BRUNO MD [id number] 01/05/2014 10:39:00 01/05/2014 23:59:59 CLS Outpatient ASHLEY BRUNO MD [id number] 12/28/2013 16:11:00 12/28/2013 23:59:59 CLS Outpatient ASHLEY BRUNO MD [id number] 12/23/2013 07:58:00 12/23/2013 23:59:59 CLS Outpatient ASHLEY BRUNO MD [id number] 12/20/2013 14:20:00 12/20/2013 23:59:59 CLS Outpatient ASHLEY BRUNO MD [id number] 12/14/2013 13:41:00 12/14/2013 23:59:59 CLS Outpatient ASHLEY BRUNO MD [id number] 12/07/2013 09:29:00 12/07/2013 23:59:59 CLS Outpatient ASHLEY BRUNO MD [id number] 10/07/2013 13:41:00 10/07/2013 23:59:59 CLS Outpatient ASHLEY BRUNO MD [id number] 09/22/2013 09:48:00 09/22/2013 23:59:59 CLS Outpatient SANDEEP PETTY DO [id number] 09/07/2013 09:04:00 09/07/2013 23:59:59 CLS Outpatient LOVE GENAO APRN [id number] 07/15/2013 14:40:00 07/15/2013 23:59:59 CLS Outpatient SANDEEP PETTY DO [id number] 07/07/2013 13:24:00 07/07/2013 23:59:59 CLS Outpatient ASHLEY BRUNO MD [id number] 06/21/2013 11:12:00 06/21/2013 23:59:59 CLS Outpatient JAMI ROSAS APRN [id number] 06/15/2013 17:51:00 06/15/2013 23:59:59 CLS Outpatient SANDEEP PETTY DO [id number] 06/15/2013 17:51:00 06/15/2013 23:59:59 CLS Outpatient SANDEEP PETTY DO [id number] 05/19/2013 15:34:00 05/19/2013 23:59:59 CLS Outpatient JAMI ROSAS APRN [id number] 05/18/2013 11:17:00 05/18/2013 23:59:59 CLS Outpatient SOCRATES TALAVERA MD [id number] 05/18/2013 11:17:00 05/18/2013 23:59:59 CLS Outpatient SOCRATES TALAVERA MD [id number] 02/03/2013 13:57:00 02/03/2013 23:59:59 CLS Outpatient SOCRATES TALAVERA MD [id number] 12/02/2012 15:34:00 12/02/2012 23:59:59 CLS Outpatient SOCRATES TALAVERA MD [id number] 05/19/2012 12:26:00 05/19/2012 23:59:59 CLS Outpatient SOCRATES TALAVERA MD [id number] 04/22/2012 16:14:00 04/22/2012 23:59:59 CLS Outpatient AFTAB PEREIRA MD [id number] 04/05/2012 16:37:00 04/05/2012 23:59:59 CLS Outpatient SANDRA LLANES GAGANDEEP R [id number] 02/10/2012 15:19:00 02/10/2012 23:59:59 CLS Outpatient [id number] 01/27/2012 08:22:00 01/27/2012 23:59:59 CLS Outpatient AFTAB PEREIRA MD [id number] 10/20/2012 15:56:00 Document Registration [id number] 09/15/2012 13:34:00 Document Registration [id number] 07/26/2012 15:52:00 Document Registration [id number] 07/23/2018 09:30:00 07/23/2018 23:59:59 CLS Preadmit BELLE MOLINA [facility] RAD FRACTURE [id number] 07/22/2018 16:36:00 07/22/2018 23:59:59 CLS Preadmit ASHLEY BRUNO MD [facility] RAD CLOSED COMPRESSION FRACTURE [id number] 07/14/2018 22:50:00 07/16/2018 12:25:00 DIS Outpatient ZI CAI MD [facility] 4TH FALL,L3 SUP ENDPLATE FX [id number] 05/16/2018 11:14:00 05/16/2018 23:59:59 CLS Outpatient ERICA MARTIN [facility] RAD COUGH [id number] 01/25/2018 14:47:00 03/29/2018 15:26:00 DIS Outpatient MATTHEW VIEYRA [facility] REHAB S/P L SHLD FIDEL, BURSECTOMY,SAD,DCE,RCR [id number] 2018 09:16:00 2018 23:59:59 CLS Outpatient RICKI DIMAS DO [facility] RAD LT THYROID NODULES [id number] 02/11/2018 21:00:00 02/12/2018 06:25:00 DIS Outpatient ASHLEY BRUNO MD [facility] SLEEP OBSTRUCTIVE SLEEP APNEA [id number] 12/21/2017 10:01:00 12/21/2017 00:01:00 DIS Outpatient MATTHEW VIEYRA [facility] REHAB S/P L SHLD FIDEL, BURSECTOMY,SAD,DCE,RCR [id number] 12/07/2017 09:33:00 12/07/2017 23:59:59 CLS Outpatient ASHLEY BRUNO MD [facility] RAD THYROID NODULE [id number] 12/04/2017 11:24:00 12/04/2017 23:59:59 CLS Outpatient ASHLEY BRUNO MD [facility] RAD SCREENING FOR BREAST CANCER [id number] 11/27/2017 15:02:00 11/27/2017 23:59:59 CLS Preadmit ASHLEY BRUNO MD [facility] RAD THYROID NODULE [id number] 11/26/2017 14:01:00 11/26/2017 23:59:59 CLS Outpatient ASHLEY BRUNO MD [facility] RAD E04.1 THYROID NODULE [id number] 09/14/2017 16:43:00 09/14/2017 18:58:00 DIS Emergency MARY HORNE APRN [facility] ER TROUBLE BREATHING [id number] 09/09/2017 14:15:00 09/09/2017 23:59:59 CLS Preadmit BRIDGET MCKINNEY [facility] RAD SUPERIOR GLENOID LABRUM LESION OF LT SHOULDER [id number] 10/13/2016 14:09:00 10/13/2016 23:59:59 CLS Preadmit ASHLEY BRUNO MD [facility] SLEEP G47.19 [id number] 10/10/2016 14:11:00 10/10/2016 23:59:59 CLS Outpatient ASHLEY BRUNO MD [facility] RAD SCREENING Z12.39 [id number] 06/13/2015 08:29:00 06/13/2015 23:59:59 CLS Outpatient LILIA RUIZ [employer] [facility] RAD THICKNESS,ABNORMAL MAMMOGRAM [id number] 06/08/2015 14:17:00 06/08/2015 23:59:59 CLS Outpatient LILIA RUIZ APRN [facility] RAD SCREENING [id number] 04/25/2015 09:24:00 04/25/2015 23:59:59 CLS Outpatient ASHLEY BRUNO MD [facility] RAD RT FOREHEAD LUMP [id number] 04/25/2014 12:19:00 04/25/2014 23:59:59 CLS Outpatient YOSSI WHITTEN [facility] RAD L SIDE ABD PAIN CONSTANT [id number] 01/31/2014 09:56:00 01/31/2014 23:59:59 CLS Outpatient JAMI ROSAS APRN [facility] RAD ROUTINE [id number] 01/05/2014 09:08:00 01/05/2014 23:59:59 CLS Outpatient ASHLEY BRUNO MD [facility] RAD LEFT LEG PAIN, HX OF DVT [id number] 10/31/2013 12:04:00 10/31/2013 17:10:00 DIS Outpatient ZELDA PEREZ MD [facility] SDC ABDOMINAL PAIN [id number] 10/26/2013 07:25:00 10/26/2013 23:59:59 CLS Outpatient ZELDA PEREZ MD [facility] PREOP ABDOMINAL PAIN [id number] 09/28/2013 10:09:00 09/28/2013 23:59:59 CLS Outpatient LOVE GENAO [employer] [facility] RAD LLQ ABD PAIN,HX GB SURGERY [id number] 06/14/2013 12:36:00 06/14/2013 16:08:00 DIS Emergency BRUNO MONZON, YOSSI Bellamy [facility] ER LOWER ABD/LEFT SIDE PAIN [id number] 05/27/2013 15:00:00 05/27/2013 23:59:59 CLS Outpatient JAMI ROSAS APRN [facility] RAD LLQ PAIN [id number] 05/24/2013 16:32:00 05/24/2013 23:59:59 CLS Outpatient SOCRATES TALAVERA MD [facility] RAD LFT KNEE PAIN, LOCKING [id number] 10/26/2012 15:36:00 10/26/2012 23:59:59 CLS Outpatient JAMI ROSAS APRN [facility] RAD SCREENING [id number] 04/06/2012 12:53:00 Document Registration [id number] 06/18/2011 16:08:00 Document Registration [id number] 07/08/2010 14:21:00 Document Registration [id number] 07/20/2018 11:40:00 07/20/2018 23:59:59 CLS Outpatient KIANA MONZON, ASHLEY Lee [facility] [id number] 06/05/2017 08:40:00 Document Registration
[2018-08-02] MEDS ORDERED: fentaNYL INJECTION 100 MCG/2 ML AMP ONE ×2 (09:28→09:59)
[2018-08-02] MEDS ORDERED: fentaNYL INJECTION 100 MCG/2 ML AMP IV ONE (09:30)
[2018-08-02] MEDS ORDERED: CATHETER FLUSH 10 ML SYR IV PRN (09:30)
--- NOTE | 2018-08-02 09:43 | Progress Note-Post Operative ---
Post-Operative Progess Note Surgeon (s)/Urogynecology Physician (s) Surgeon LESLIE COLON MD Urogynecology Physician: ERNIE Nguyen Pre-Operative Diagnosis L3 osteoporotic, pathologic compression fx Post-Operative Diagnosis Same, pathology pending Procedure & Operative Findings Date of Procedure 08/02/18 Procedure Performed/Findings L3 Kyphoplasty, biopsy under fluroscopy Anesthesia Type GETA Estimated Blood Loss Estimated blood loss (mL): Minimal Specimens/Packing Specimens Removed L3 biopsy LESLIE COLON MD August 02, 2018 09:43
[2018-08-02] MEDS ORDERED: DEXAMETHASONE 10 MG/ML (DECADRON) 1 ML VIAL ONE (09:59)
[2018-08-02] MEDS ORDERED: ONDANSETRON 4 MG/2 ML (SDV) Z0FRAN ONE (09:59)
[2018-08-02] MEDS ORDERED: proPOfol 200 MG/20 ML (DIPRIVAN) VIAL IV ONE (09:59)
[2018-08-02] MEDS ORDERED: MIDAZOLAM 2 MG/2 ML (VERSED) VIAL ONE (09:59)
[2018-08-02] MEDS ORDERED: SEVOFLURANE (ULTANE) 15 ML INHAL SOLN ONE (09:59)
[2018-08-02] MEDS ORDERED: ROCURONIUM 10 MG/ML 5 ML SYRINGE IV ONE (09:59)
[2018-08-02] MEDS ORDERED: SUCCINYLCHOLINE INJ 100 MG/5 ML SYR ONE (10:07)
[2018-08-02] MEDS ORDERED: PROMETHAZINE INJ 25 MG/ML (PHENERGAN) AMP IVP ONE (11:30)
[2018-08-02] MEDS ORDERED: HYDROmorphone 2 MG/ML VIAL (DILAUDID) IV ONE (11:30)
[2018-08-02] MEDS ORDERED: morphine INJ 10 MG/ML 1ML (SYR OR VIAL) IVP ONE (11:30)
[2018-08-02] MEDS ORDERED: ONDANSETRON 4 MG/2 ML (SDV) Z0FRAN IVP PRN (11:30)
[2018-08-02] MEDS ORDERED: IOPAMIDOL 61% 30 ML (ISOVUE 300) VIAL IV ONE (11:45)
--- NOTE | 2018-08-02 11:58 | Anesthesia-General Post-Op ---
General Patient Condition Mental Status/LOC: Same as Preop Cardiovascular: Satisfactory Nausea/Vomiting: Absent Respiratory: Satisfactory Pain: Controlled Complications: Absent Post Op Complications Complications None Follow Up Care/Instructions Patient Instructions None needed. Anesthesia/Patient Condition Patient Condition Patient is doing well, no complaints, stable vital signs, no apparent adverse anesthesia problems. No complications reported per nursing. [place] [facility] [place] Yes PAOLA GARZA CRNA August 02, 2018 11:58
--- NOTE | 2018-08-02 12:13 | Diagnostic Imaging Report ---
Indication: Fluoroscopy during kyphoplasty. Fluoroscopy was provided for Dr. King during performance of a L3 kyphoplasty. 44 seconds of fluoroscopy was utilized. Impression: Fluoroscopy during lumbar spine kyphoplasty. Dictated by: Dictated on workstation # [id number]
--- NOTE | 2018-08-02 14:00 | NUR ---
HAS RESTED QUIETLY THROUGHOUT RECOVERY. RATES LOW BACK PAIN 2. DRESSINGS REMAIN D/I TO LOW BACK SURGICAL SITES. USED ICE PACK ON AND OFF. DENIES NAUSEA. UP WITH ASSIST TO BR, GAIT STEADY. READY FOR DISMISSAL.
--- NOTE | 2018-08-02 17:37 | OPERATIVE REPORT ---
DATE OF SERVICE: 08/02/2018 PREOPERATIVE DIAGNOSIS: L3 pathologic osteoporotic compression fracture, pathology pending. POSTOPERATIVE DIAGNOSIS: L3 pathologic osteoporotic compression fracture, pathology pending. PROCEDURE PERFORMED: L3 kyphoplasty biopsy with use of fluoroscopy. DATE AND TIME OF SURGERY: Please see anesthesia record. SURGEON: Cain King MD TRACK REPAIR WORKER: ANTHONY Nguyen. ROLE OF P 3 ARMAMENT/ORDNANCE IMA TECHNICIAN: Aid in bilateral balloon insufflation, methyl methacrylate insertion. ANESTHESIA: General endotracheal. ESTIMATED BLOOD LOSS: Minimal. INTRAVENOUS FLUIDS: Please see anesthesia record. ANTIBIOTICS: Ancef. COMPLICATIONS: None. SPECIMENS: L3 vertebral biopsy. INDICATIONS FOR PROCEDURE: The patient is 53-year-old female with acute onset of severe back pain without significant antecedent trauma. MRI shows an acute compression deformity. Risks, benefits and alternatives were discussed. She would like to proceed with operative treatment. DESCRIPTION OF PROCEDURE: The patient was taken to the preoperative holding area and brought back to the operative suite. After induction of general anesthetic, preoperative antibiotics, carefully turned prone on Narayan table, careful padding to all extremities, sterilely prepped and draped the posterior thoracolumbar spine. Localization at the L3 vertebral body was performed with biplanar fluoroscopy and then stab incision made. Vertebral cannulas were placed. Vertebral body was biopsied. Balloon insufflation cavity creation was performed. Methyl methacrylate was inserted. Good fill and interdigitation was achieved with methyl methacrylate. Cement was allowed to harden. Cannula was removed. The patient's wounds were closed and was transferred to recovery room in stable condition and tolerated the procedure well. Job ID: [id number] DocumentID: [id number] Dictated Date: 08/02/2018 11:19:45 Vp Transportation Date: 08/02/2018 17:36:52 Dictated By: CAIN KING MD
== END 2018-08-02 14:15 | disposition home or self-care (01) ==
LOC: SDC 08:33
PROVIDERS: ATTEND Orthopaedic Surgery Orthopaedic Surgery of the Spine
DX: M80.08XA Age-related osteoporosis with current pathological fracture, vertebra(e), initial encounter for fracture (principal); I10 Essential (primary) hypertension; D68.2 Hereditary deficiency of other clotting factors; K21.9 Gastro-esophageal reflux disease without esophagitis; Z98.84 Bariatric surgery status; Z86.718 Personal history of other venous thrombosis and embolism; Z79.01 Long term (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; Z79.899 Other long term (current) drug therapy
CPT/HCPCS: 84703; 87081

== ENCOUNTER → 2018-08-17 | Outpatient (CLI) | payer MEDICAID ==
--- NOTE | 2018-08-17 14:52 | Diagnostic Imaging Report ---
INDICATION: 53-year-old asymptomatic postmenopausal female. History of osteoporotic compression fracture. COMPARISON: None available. FINDINGS: AP Spine L1-L4: [BMD (g/cm2): 1.158] [T-Score: -0.4] [Z-Score: -0.6] [BMD Previous: N/A] [BMD % Change: N/A] LT Hip Neck: [BMD (g/cm2): 0.934] [T-Score: -0.7] [Z-Score: -0.4] LT Hip Total: [BMD (g/cm2):1.029] [T-Score:0.2] [Z-Score: 0.1] [BMD Previous: N/A] [BMD % Change: N/A] RT Hip Neck: [BMD (g/cm2):0.992] [T-Score:-0.3] [Z-Score:0.0] RT Hip Total: [BMD (g/cm2):1.033] [T-score:0.2] [Z-Score:0.2] [BMD Previous:NA] [BMD % Change:N/A] *Indicates significant change from prior examination based on 95% confidence level. World Health Organization criteria for BMD interpretation classify patients as Normal (T-score at or above -1.0), Osteopenic (T-score between -1.0 and -2.5) or Osteoporotic (T-score at or below -2.5). LIMITATIONS AND MODIFICATION: None. FRACTURE RISK (FRAX SCORE): Not applicable as patient has normal bone mineral density. IMPRESSION: 1. Normal bone mineral density. 2. However, since patient has history of prior fragility fracture (lumbar compression fracture), see below suggested guidelines for initiation of pharmacologic treatment. Based on the National Osteoporosis Foundation Guidelines, pharmacologic treatment should be initiated in any of the following, unless clinical conditions suggest otherwise: * Any patient with prior fragility fracture of the hip or vertebrae. A spine fracture indicates 5X risk for subsequent spine fracture and 2X risk for subsequent hip fracture. * Osteoporosis (T-score <-2.5). * Postmenopausal women and men age 50 and older with low bone mass/osteopenia (T-score between -1.0 and -2.5) by DXA and 10-year major osteoporotic fracture greater than 20% or a 10-year probability of hip fracture greater than 3%. These fracture risks are supplied above in the FRAX score, if applicable. * Clinician judgement and/or patient preferences may indicate treatment for people with 10-year fracture probabilities above or below these levels. Dictated by: Dictated on workstation # [id number]
== END ==
LOC: RAD 09:49
PROVIDERS: ATTEND Family Medicine
DX: S32.030D Wedge compression fracture of third lumbar vertebra, subsequent encounter for fracture with routine healing (principal); Z78.0 Asymptomatic menopausal state
CPT/HCPCS: 77080

== ENCOUNTER 2018-12-08 12:32 | Outpatient (RCR) | payer MEDICAID ==
[~2018-12-08 12:32] MED LIST changes: -OMEP10CA4 PO; +OMEP10CA5 PO
== END 2019-03-08 | disposition home or self-care (01) ==
LOC: CARD 12:32
PROVIDERS: ATTEND Family Medicine
DX: R55 Syncope and collapse (principal)
CPT/HCPCS: 93225; 93226

== ENCOUNTER → 2019-01-11 | Outpatient (CLI) | payer MEDICAID ==
--- NOTE | 2019-01-11 13:22 | Diagnostic Imaging Report ---
INDICATION: Routine screening. COMPARISON: Comparison is made with prior mammogram from 12/04/2017 and 10/10/2016. 2-D and 3-D bilateral screening mammography was performed. The current study was also evaluated with a Computer Aided Detection (CAD) system. 3-D tomosynthesis was also performed and reviewed. FINDINGS: Both breasts are heterogeneously dense, limiting the sensitivity of mammography. Circumscribed density in the outer left breast is stable and consistent with intraparenchymal lymph node. There are benign calcifications bilaterally. No new mass or malignant-appearing microcalcifications are seen. The axillae are unremarkable. IMPRESSION: No mammographic features suspicious for malignancy are identified. ACR BI-RADS Category 2: Benign findings. Result letter will be mailed to the patient. Note: At least 10% of breast cancer is not imaged by mammography. Dictated by: Dictated on workstation # [id number]
== END ==
LOC: RAD 10:24
PROVIDERS: ATTEND Nurse Practitioner Family
DX: Z12.31 Encounter for screening mammogram for malignant neoplasm of breast (principal)
CPT/HCPCS: 77067

== ENCOUNTER 2019-10-13 07:17 | Outpatient (RCR) | payer MEDICAID ==
[~2019-10-13] VITALS: Ht 162 cm; Wt 100.0 kg
[~2019-10-13 07:17] MED LIST changes: +CHOL500050 PO; +FERR-84 PO; +LEVO50TA6 PO; +NALT1TAB PO
== END 2019-10-13 10:31 | disposition home or self-care (01) ==
LOC: PREOP 07:17
PROVIDERS: ATTEND Surgery
DX: Z01.818 Encounter for other preprocedural examination (principal); Z01.812 Encounter for preprocedural laboratory examination; D50.9 Iron deficiency anemia, unspecified; Z20.828 Contact with and (suspected) exposure to other viral communicable diseases
CPT/HCPCS: 87635

== ENCOUNTER 2019-10-19 11:03 | Day surgery (SDC) | payer MEDICAID ==
[2019-10-19] VITALS (8 sets, daily range): BP systolic 113–130; BP diastolic 62–83
[~2019-10-19] VITALS: Ht 162 cm; Wt 100.0 kg
[2019-10-19] MEDS ORDERED: LACTATED RINGERS 1,000 ML IV PRN (11:15)
[2019-10-19] MEDS ORDERED: LACTATED RINGERS 1,000 ML IV ONE (11:15)
[2019-10-19] MEDS ORDERED: HURRICAINE EXT TUBE (BENZOCAINE) XX PRN (11:15)
--- OUTSIDE RECORDS SUMMARY | 2019-10-19 12:16 | XMS REPORT | Summary of Care ---
Author Organization Unknown Address Unknown Phone Unavailable Care Team Providers Care Tile And Marble Installer Name Role Phone PCP , NO PCP Unavailable Encounter Dates Location Diagnoses Discharge Providers Disposition 11/18/[address] [facility] Home - 01 VICTOR MANUEL YAO MD - [address] [place] [address] NISREEN YAO MD 11/18/2012 [place] [id number], Reason for Visit lap band placement Problem List No data available for this section Allergies, Adverse Reactions, Alerts No data available for this section Medications No data available for this section Medications Administered During Your Visit No data available for this section Immunizations No data available for this section
--- OUTSIDE RECORDS SUMMARY | 2019-10-19 12:16 | XMS REPORT | Summary of Care ---
Author Organization Unknown Address Unknown Phone Unavailable Care Team Providers Care Air Compressor Engineer Name Role Phone PCP MD, NO PCP Unavailable Encounter Dates Location Diagnoses Discharge Providers Disposition 11/18/2012 [facility] Home - 01 SOO MONZON, NIRALI Bellamy - [address] [place] [address] NIRALI VANN MD 11/18/2012 [place], [place] SOO MONZON, MICHAEL Bellamy [phone], Reason for Visit LAB Problem List No data available for this section Allergies, Adverse Reactions, Alerts No data available for this section Medications No data available for this section Results HEMATOLOGY Most recent to 1 oldest [Reference Range]: PT [11.5-15.0 13.6 second second] (11/18/2012 14:17:00 [place] [facility] INR 1.0 *NA* (11/18/2012 14:17:00 [place]) Medications Administered During Your Visit No data available for this section Immunizations No data available for this section
--- OUTSIDE RECORDS SUMMARY | 2019-10-19 12:16 | XMS REPORT | Summary of Care ---
Author Author [facility] er Organization [facility] Address Unknown Phone Unavailable Care Team Providers Care Computer Equipment Repairer Name Role Phone KIANA MONZON, ASHLEY DOW PCP PCP MD, NO PCP Unavailable Encounter [facility] [id number] Date(s): 01/28/18 - 01/28/18 [facility] [address] [place] [id number] Encounter Diagnosis Morbid obesity (Discharge Diagnosis) - 01/28/18 Discharge Disposition: Home - 01 Attending Physician: CB GU MD Admitting Physician: CB GU MD Referring Physician: CB GU MD Vital Signs Most recent to 1 oldest [Reference Range]: Vital Signs Post procedure Status/Type (01/28/18 4:45 PM) Temperature 97.8 DegF [96.8-99.7 DegF] (01/28/18 4:45 PM) Temp Method Temporal (01/28/18 4:45 PM) Heart Rate 96 bpm (01/28/18 4:45 PM) Heart Rate Location Auto BP, Continuous Follow Up Specialist (01/28/18 3:40 PM) Telemetry Details Applied, Post-procedure (01/28/18 3:40 PM) Respiratory Rate 16 br/min [15-20 br/min] (01/28/18 4:45 PM) Blood Pressure 116/74 mmHg [90-180/50-90 mmHg] (01/28/18 4:45 PM) NIBP MAP 75 mmHg (01/28/18 4:40 PM) NIBP MAP Calc 88 (01/28/18 4:45 PM) BP Location Arm, left (01/28/18 4:45 PM) Heart Rhythm Sinus/atrial rhythm Interpretation (01/28/18 3:40 PM) Vital Signs Status Vital signs taken (01/28/18 11:00 AM) Problem List Condition Effective Dates Status Health Status Informan t Morbid Active obesity(Confirmed) Allergies, Adverse Reactions, Alerts Substance Reaction Severity Status HYDROcodone Itching Active Medications Eliquis 10 mg, PO, Daily, 0 Refill(s), Indication: Clot Prevention Start Date: 01/21/18 Status: Ordered hydroCHLOROthiazide 50 mg oral tablet 1 TAB, PO, Daily, 0 Refill(s), Indication: Fluid Retention Start Date: 01/21/18 Status: Ordered Lexapro 10 mg oral tablet 1 TAB, PO, Daily, 0 Refill(s), Indication: Anxiety Start Date: 01/21/18 Status: Ordered pantoprazole 40 mg oral delayed release tablet 1 TAB, PO, Daily, 0 Refill(s), Indication: Reflux Start Date: 01/21/18 Status: Ordered Results CHEMISTRY Most recent to 1 oldest [Reference Range]: Potassium POC 3.5 mmol/L 1 [3.8-5.2 mmol/L] *LOW* (01/28/18 12:12 PM) 1Result Comment: Meter ID: [id number] Anesthesiologist Assistant: [id number] LISA TOMAS IMMUNO/SEROLOGY Most recent to 1 oldest [Reference Range]: HCG Urine QuaL POC Negative 1 (01/28/18 11:24 AM) 1Result Comment: Meter ID: [id number] Anesthesiologist Assistant: [id number] DI MICHELE Immunizations No data available for this section Procedures Procedure Date Related Diagnosis Body Site Status Laparoscopic Gastric Band Revision/Removal1 01/28/18 Completed 1auto-populated from documented surgical case Social History No data available for this section Functional Status No data available for this section Assessment and Plan No data available for this section Hospital Discharge Instructions No data available for this section
--- OUTSIDE RECORDS SUMMARY | 2019-10-19 12:16 | XMS REPORT | Summary of Care ---
Author Author [employer] [facility] [employer] Address Unknown Phone Unavailable Care Team Providers Care Level Vial Curvature Gauger Name Role Phone KIANA MONZON, ASHLEY DOW PCP PCP MD, NO PCP Unavailable Encounter [facility] [id number] Date(s): 05/20/18 - 05/21/18 [employer] [address] [address] Encounter Diagnosis Morbid obesity (Discharge Diagnosis) - 05/20/18 Discharge Disposition: Home - 01 Attending Physician: CB GU MD Admitting Physician: CB GU MD Referring Physician: CB GU MD Vital Signs Most recent to 1 oldest [Reference Range]: Vital Signs Pre Procedure Status/Type (05/20/18 12:00 PM) Temperature 98.6 DegF [96.8-99.7 DegF] (05/21/18 7:38 AM) Temp Method Oral (05/21/18 7:38 AM) Heart Rate 70 bpm (05/21/18 7:38 AM) Heart Rate Location Auto BP, Continuous Telephone Sex Worker (05/20/18 3:35 PM) Respiratory Rate 16 br/min [15-20 br/min] (05/21/18 7:38 AM) Blood Pressure 120/71 mmHg [90-180/50-90 mmHg] (05/21/18 7:38 AM) NIBP MAP 100 mmHg (05/20/18 4:45 PM) NIBP MAP Calc 106 (05/20/18 4:45 PM) NIBP Alarms set and Yes on (05/20/18 3:35 PM) BP Location Arm, right (05/20/18 3:35 PM) NIBP Method Automatic (05/20/18 3:35 PM) BP Cuff Size Large (05/20/18 3:35 PM) Heart Rhythm Sinus tachycardia Interpretation (05/20/18 3:35 PM) Problem List Condition Effective Dates Status Health Status Informan t Morbid Active obesity(Confirmed) Allergies, Adverse Reactions, Alerts Substance Reaction Severity Status oxyCODONE itching Active Medications acetaminophen-HYDROcodone 325 mg-5 mg oral tablet 1 TAB, PO, Q4H (Every 4 hours), PRN Moderate Pain, 0 Refill(s) Start Date: 05/21/18 Status: Ordered hydrOXYzine hydrochloride 10 mg oral tablet 1 TAB, PO, Daily, 0 Refill(s), Indication: Itch Start Date: 05/04/18 Status: Ordered Lovenox 40 mg/0.4 mL injectable solution = 0.4 mL, Subcut, Daily, X 7 day, # 2.8 mL, 0 Refill(s), called to pharmacy (Rx) , Indication: Clot Prevention Start Date: 05/21/18 Stop Date: 05/28/18 Status: Ordered omeprazole 20 mg oral delayed release capsule 1 CAP, PO, BID (2 times a day), # 60 CAP, 1 Refill(s), called to pharmacy (Rx), Indication: Ulcers Start Date: 05/21/18 Status: Ordered Results HEMATOLOGY Most recent to 1 oldest [Reference Range]: WBC [4.0-11.0 7.4 x10'3/microL x10'3/microL] (05/21/18 4:26 AM) RBC [3.90-5.60 4.00 x10'6/microL x10'6/microL] (05/21/18 4:26 AM) Hgb [12.0-16.0 g/dL] 10.3 g/dL *LOW* (05/21/18 4:26 AM) Hct [35-47 %] 34 % *LOW* (05/21/18 4:26 AM) Platelet [140-400 272 x10'3/microL x10'3/microL] (05/21/18 4:26 AM) MCV [81-99 fL] 84 fL (05/21/18 4:26 AM) MCH [27-34 pg] 26 pg *LOW* (05/21/18 4:26 AM) MCHC [30-36 g/dL] 31 g/dL (05/21/18 4:26 AM) RDW [<=16.4 %] 14.9 % (05/21/18 4:26 AM) MPV [6.5-10.4 fL] 9.8 fL (05/21/18 4:26 AM) Neutrophils % [44-76 81 % %] *HI* (05/21/18 4:26 AM) Lymphocytes % [13-43 10 % %] *LOW* (05/21/18 4:26 AM) Monocytes % [0-13 %] 7 % (05/21/18 4:26 AM) Eosinophils % [0-7 0 % %] (05/21/18 4:26 AM) Basophils % [0-3 %] 1 % (05/21/18 4:26 AM) Neutrophils Abs 6.0 x10'3/microL [1.4-7.2 (05/21/18 4:26 AM) x10'3/microL] Lymphocytes Abs 0.8 x10'3/microL [1.2-3.4 *LOW* x10'3/microL] (05/21/18 4:26 AM) Monocytes Abs 0.5 x10'3/microL [0.1-0.6 (05/21/18 4:26 AM) x10'3/microL] Eosinophils Abs 0.0 x10'3/microL [0.0-0.5 (05/21/18 4:26 AM) x10'3/microL] Basophils Abs 0.0 x10'3/microL [0.0-0.2 (05/21/18 4:26 AM) x10'3/microL] Immature Grans Abs 0.0 x10'3/microL [0.0-0.0 (05/21/18 4:26 AM) x10'3/microL] Immature 0 % Granulocytes % [0-0 (05/21/18 4:26 AM) %] CHEMISTRY Most recent to 1 oldest [Reference Range]: Sodium [136-145 144 mmol/L mmol/L] (05/21/18 4:26 AM) Potassium [3.5-5.1 3.8 mmol/L mmol/L] (05/21/18 4:26 AM) Chloride [98-107 107 mmol/L mmol/L] (05/21/18 4:26 AM) CO2 [22-29 mmol/L] 25 mmol/L (05/21/18 4:26 AM) AGAP [3-12 mmol/L] 12 mmol/L (05/21/18 4:26 AM) Glucose [70-100 116 mg/dL mg/dL] *HI* (05/21/18 4:26 AM) Glucose, POC [70-100 96 mg/dL 1 mg/dL] (05/20/18 1:49 PM) BUN [8-20 mg/dL] 5 mg/dL *LOW* (05/21/18 4:26 AM) Creatinine [0.7-1.2 0.6 mg/dL mg/dL] *LOW* (05/21/18 4:26 AM) Calcium [8.6-10.2 7.9 mg/dL mg/dL] *LOW* (05/21/18 4:26 AM) Est CrCL (CG) 95.4 mL/min 2 (05/21/18 4:26 AM) GFR (CKD-EPI) 102.9 mL/min/1.73 m2 3 *NA* (05/21/18 4:26 AM) Albumin Level 3.5 g/dL [3.5-5.2 g/dL] (05/21/18 4:26 AM) Total Protein 6.4 g/dL [6.6-8.7 g/dL] *LOW* (05/21/18 4:26 AM) Hgb A1c [0.0-5.6 %] 6.2 % *HI* (05/20/18 5:40 PM) Estimated Average 131 mg/dL Glucose *NA* (05/20/18 5:40 PM) Magnesium [1.6-2.6 1.8 mg/dL mg/dL] (05/21/18 4:26 AM) Cholesterol [<=200 155 mg/dL mg/dL] (05/21/18 4:26 AM) HDL [>=60 mg/dL] 51 mg/dL *LOW* (05/21/18 4:26 AM) LDL Direct [<=100 90 mg/dL mg/dL] (05/21/18 4:26 AM) Chol/HDL Ratio 3.0 [<=4.5] (05/21/18 4:26 AM) Triglycerides [<=150 121 mg/dL mg/dL] (05/21/18 4:26 AM) Alk Phos [40-130 65 Inter. Units/L Inter. Units/L] (05/21/18 4:26 AM) AST [0-40 Units/L] 46 Units/L *HI* (05/21/18 4:26 AM) ALT(SGPT) [0-33 31 Inter. Units/L Inter. Units/L] (05/21/18 4:26 AM) Bili Total [0.0-1.2 0.2 mg/dL mg/dL] (05/21/18 4:26 AM) 1Result Comment: Meter ID: [id number] Library Clerk: [id number] MAYURI REYES 2Result Comment: Estimated Creatinine Clearance calculated based on the Cockcroft-Gault formula. 3Result Comment: GFR calculated based on CKD-EPI Creatinine Equation (2009). Age(years) Average GFR 20-29 116 mL/min/1.73 m^2 30-39 107 mL/min/1.73 m^2 40-49 99 mL/min/1.73 m^2 50-59 93 mL/min/1.73 m^2 60-69 85 mL/min/1.73 m^2 70+ 75 mL/min/1.73 m^2 Acceptable GFR =>60 mL/min/1.73 m^2 Chronic Kidney Disease <60 mL/min/1.73 m^2 Kidney Failure <15 mL/min/1.73 m^2 ENDOCRINE/TUMOR MARKER Most recent to 1 oldest [Reference Range]: T4 Free [0.9-1.7 1.3 ng/dL ng/dL] (05/20/18 5:40 PM) TSH [place] 4.26 microInter.Units/mL [0.27-4.20 *HI* microInter.Units/mL] (05/20/18 5:40 PM) IMMUNO/SEROLOGY Most recent to 1 oldest [Reference Range]: HCG Urine QuaL POC Negative 1 (05/20/18 12:04 PM) 1Result Comment: Meter ID: [id number] Library Clerk: [id number] MAYURI REYES Immunizations No data available for this section Procedures Procedure Date Related Diagnosis Body Site Status Laparoscopic Gastric Sleeve1 05/20/18 Completed 1auto-populated from documented surgical case Social History No data available for this section Functional Status No data available for this section Assessment and Plan No data available for this section Hospital Discharge Instructions No data available for this section
--- OUTSIDE RECORDS SUMMARY | 2019-10-19 12:16 | XMS REPORT | Summary of Care ---
Author Organization Unknown Address Unknown Phone Unavailable Care Team Providers Care Material Control Analyst Name Role Phone PCP MD, NO PCP Unavailable Encounter Dates Location Diagnoses Discharge Providers Disposition 10/04/2012 [facility] Home - 01 SOO MONZON, NIRALI Bellamy - [address] [place] [address] NIRALI VANN MD 11/28/2012 [place], [place] SOO MONZON, MICHAEL Bellamy [phone], Reason for Visit DX INT Problem List No data available for this section Allergies, Adverse Reactions, Alerts No data available for this section Medications No data available for this section Medications Administered During Your Visit No data available for this section Immunizations No data available for this section
--- OUTSIDE RECORDS SUMMARY | 2019-10-19 12:17 | XMS REPORT | Continuity of Care Document ---
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 Role Phone [facility] Unavailable Unavailable Problems Problem Status Onset Date Classification Date Reported Comments Source GASTRO-ESOPHAGEAL REFLUX DISEASE WITHOUT Active 05/21/2018 [facility] MORBID (SEVERE) OBESITY DUE TO EXCESS CA Active 05/21/2018 [facility] BODY MASS INDEX (BMI) 38.0-38.9, ADULT Active 05/21/2018 [facility] HYPOKALEMIA Active 05/21/2018 [facility] OBSTRUCTIVE SLEEP APNEA (ADULT) (PEDIATR Active 05/21/2018 [facility] ANEMIA, UNSPECIFIED Active 05/21/2018 [facility] ACTIVATED PROTEIN C RESISTANCE Active 05/21/2018 [facility] HYPOTHYROIDISM, UNSPECIFIED Ac tive 05/21/2018 [facility] PERSONAL HISTORY OF OTHER VENOUS THROMBO Active 05/21/2018 [facility] LONGTERM (CURRENT) USE OF ANTICOAGULANT Active 05/21/2018 [facility] PAIN IN UNSPECIFIED JOINT Acti ve 05/21/2018 [facility] Morbid (severe) obesity due to excess calories 05/20/2018 Discharge Diagnosis 05/22/2018 [facility] OTHER COMPLICATIONS OF GASTRIC BAND PROC Active 01/28/2018 [facility] HEREDITARY DEFICIENCY OF OTHER CLOTTING Active 01/28/2018 [facility] DYSPHAGIA, UNSPECIFIED Active 01/28/2018 [facility] BODY MASS INDEX (BMI) 33.0-33.9, ADULT Active 01/28/2018 [facility] OTHER AND UNSPECIFIED MANIFESTATIONS OF Active 07/01/2013 [facility] OTHER SPECIFIED PREOPERATIVE EXAMINATION Active 11/18/2012 [facility] LONG-TERM (CURRENT) USE OF ANTICOAGULANT Active 11/18/2012 [facility] Morbid obesity (disorder) Acti ve Problem [facility] Medications Medication Details Route Status Patient Instructions Ordering Provider Order Date Source 0.4 ML Enoxaparin sodium 100 MG/ML Prefi lled Syringe [Lovenox] = 0.4 mL, Subcut, Daily, X 7 day, # 2.8 mL, 0 Refill(s), called to pharmacy (Rx), Indication: Clot Prevention Active 05/21/2018 [facility] Omeprazole 20 MG Enteric Coated Capsule 1 CAP, PO, BID (2 times a day), # 60 CAP, 1 Refill(s), called to pharmacy (Rx), Indication: Ulcers Active 05/21/2018 [facility] Acetaminophen 325 MG / Hydrocodone Tejal trate 5 MG Oral Tablet 1 TAB, PO, Q4H (Every 4 hours), PRN Mode rate Pain, 0 Refill(s) Active 05/21/2018 [facility] hydrOXYzine hydrochloride 10 mg oral tablet 1 TAB, PO, Daily, 0 Refill(s), Indication: Itch Active 05/04/2018 [facility] Escitalopram 10 MG Oral Tablet [Lexapro] 1 TAB, PO, Daily, 0 Refill(s), Indication: Anxiety Active 01/21/2018 [facility] hydroCHLOROthiazide 50 mg oral tablet 1 TAB, PO, Daily, 0 Refill(s), Indication: Fluid Retention Active 01/21/2018 [facility] pantoprazole 40 mg oral delayed release tablet 1 TAB, PO, Daily, 0 Refill(s), Indication: Reflux Active 01/21/2018 [facility] Eliquis 10 mg, PO, Daily, 0 Re fill(s), Indication: Clot Prevention Active 01/21/2018 [facility] Allergies, Adverse Reactions, Alerts Substance Category Reaction Severity Reaction type Status Date Reported Comments Source HYDROcodone Assertion Itching Propensity to adverse reacti ons to drug Active [facility] er oxyCODONE Assertion itching Drug allergy Active [facility] Immunizations No Data Provided for This Section Results Order Name Results Value Reference Range Date Interpretation Comments Source CHEMISTRY GFR (CKD-EPI) 102.9 mL/min/1.73 m2 05/21/2018 Result Comment: GFR calculated based on CKD-EPI Creatinine Equation (2009).
Age(years) Average GFR
20-29 116 mL/min/1.73 m^2
30-39 107 mL/min/1.73 m^2
40-49 99 mL/min/1.73 m^2
50-59 93 mL/min/1.73 m^2
60-69 85 mL/min/1.73 m^2
70+ 75 mL/min/1.73 m^2
&lt ;br/>Acceptable GFR =>60 mL/min/1.73 m^2
Chronic Kidney Disease <60 mL/min/1.73 m^2
Kidney Failure <15 mL/min/1.73 m^2 [facility] [employer] CHEMISTRY Est CrCL (CG) 95.4 m L/min 05/21/2018 Result Comment: Estimated Creatinine Woody arance calculated based on the Cockcroft-Gault formula. [facility] [employer] CHEMISTRY Magnesium 1.8 mg/dL 1.6 - 2.6 05/21/2018 [facility] [employer] CHEMISTRY Potassium 3.8 mmol/L 3.5 - 5.1 05/21/2018 [facility] [employer] CHEMISTRY Sodium 144 mmol/L 136 - 145 05/21/2018 [facility] [employer] CHEMISTRY Chloride 107 mmol/L 98 - 107 05/21/2018 [facility] [employer] CHEMISTRY BUN 5 mg/dL 8 - 05/21/2018 [facility] [employer] CHEMISTRY Glucose 116 mg/dL 70 - 100 05/21/2018 [facility] [employer] CHEMISTRY Creatinine 0.6 mg/dL 0.7 - 1.2 05/21/2018 [facility] [employer] CHEMISTRY CO2 25 mmol/L - 05/21/2018 [facility] [employer] CHEMISTRY ALT(SGPT) 31 [iU]/d 0 - 33. 05/21/2018 [facility] AST 46 Units/L 0 - 40 05/21/2018 [facility] CHEMISTRY AGAP 12 mmol/L 3 - 12 05/21/2018 [facility] CHEMISTRY Bili Total 0.2 mg/dL 0.0 - 1.2 05/21/2018 [facility] CHEMISTRY Albumin Level 3.5 g/ dL 3.5 - 5.2 05/21/2018 [facility] CHEMISTRY Total Protein 6.4 g/ dL 6.6 - 8.7 05/21/2018 [facility] CHEMISTRY Alk Phos 65 [iU]/d 40 - 130. 05/21/2018 [facility] CHEMISTRY Calcium 7.9 mg/dL 8.6 - 10.2 05/21/2018 [facility] CHEMISTRY LDL Direct 90 mg/dL <=100 mg/dL 05/21/2018 [facility] CHEMISTRY HDL 51 mg/dL >=60 mg/dL 05/21/2018 [facility] CHEMISTRY Cholesterol 155 mg /dL <=200 mg/dL 05/21/2018 [facility] CHEMISTRY Chol/HDL Ratio 3.0 <=4.5 05/21/2018 [facility] CHEMISTRY Triglycerides 121 mg /dL <=150 mg/dL 05/21/2018 [facility] HEMATOLOGY Basophils Abs 0.0 x 10'3/microL 0.0 - 0.2103 05/21/2018 [facility] HEMATOLOGY Monocytes Abs 0.5 x 10'3/microL 0.1 - 0.6103 05/21/2018 [facility] HEMATOLOGY Eosinophils Abs 0.0 x 10'3/microL 0.0 - 0.5103 05/21/2018 [facility] HEMATOLOGY Neutrophils Abs 6.0 x 10'3/microL 1.4 - 7.2103 05/21/2018 [facility] HEMATOLOGY Basophils % 1 % 0 - 3 05/21/2018 [facility] HEMATOLOGY Immature Grans Abs 0.0 x 10'3/microL 0.0 - 0.0103 05/21/2018 [facility] HEMATOLOGY Lymphocytes Abs 0.8 x 10'3/microL 1.2 - 3.4103 05/21/2018 [facility] HEMATOLOGY Immature Granulocytes % 0 % 0 - 0 05/21/2018 [facility] HEMATOLOGY Monocytes % 7 % 0 - 13 05/21/2018 [facility] HEMATOLOGY Eosinophils % 0 % 0 - 7 05/21/2018 [facility] HEMATOLOGY Neutrophils % 81 % 44 - 76 05/21/2018 [facility] HEMATOLOGY Lymphocytes % 10 % 13 - 43 05/21/2018 [facility] HEMATOLOGY Hgb 10.3 g/dL 12.0 - 16.0 05/21/2018 [facility] HEMATOLOGY RBC 4.00 x10'6/microL 3.90 - 5.52460 05/21/2018 [facility] HEMATOLOGY WBC 7.4 x 10'3/microL 4.0 - 11.0103 05/21/2018 [facility] HEMATOLOGY RDW 14.9 % <=16.4 % 05/21/2018 [facility] HEMATOLOGY MCHC 31 g/dL 30 - 36 05/21/2018 [facility] HEMATOLOGY MCH 26 pg 27 - 34 05/21/2018 [facility] HEMATOLOGY MCV 84 fL 81 - 99 05/21/2018 [facility] HEMATOLOGY Hct 34 % 35 - 47 05/21/2018 [facility] HEMATOLOGY MPV 9.8 fL 6.5 - 10.4 05/21/2018 [facility] HEMATOLOGY Platelet 272 x 10'3/microL 140 - [id number] 05/21/2018 [facility] Renal Funct Index GFR (CKD-EPI) 102.9 mL/min/1.73 m2 05/21/2018 NA GFR calculated based on CKD -EPI Creatinine Equation (2009).
Age(years) Average GFR
20-29 116 mL/min/1.73 m^2
30-39 107 mL/min/1.73 m^2
40-49 99 mL/min/1.73 m^2
50-59 93 mL/min/1.73 m^2
60-69 85 mL/min/1.73 m^2
70+ 75 mL/min/1.73 m^2

Acceptable GFR =>60 mL/min/1.73 m^2
Chronic Kidney Disease <60 mL/min/1.73 m^2
Kidney Failure <15 mL/min/1.73 m^2
[facility] CMP CO2 25 mmol/L 22 - 05/21/2018 N [facility] CMP AGAP 12 mmol/L 3 - 12 05/21/2018 N [facility] CMP Glucose 116 mg/dL 70 - 100 05/21/2018 H [facility] CMP BUN 5 mg/dL 8 - 20 05/21/2018 L [facility] CMP Creatinine 0.6 mg/dL 0.7 - 1.2 05/21/2018 L The presence of ketone bodies can cause artificially high results in serum, plasma and urine.
[facility] CMP Calcium 7.9 mg/dL 8.6 - 10.2 05/21/2018 L [facility] CMP Total Protein 6.4 g/dL 6.6 - 8.7 05/21/2018 L [facility] CMP Albumin Level 3.5 g/dL 3.5 - 5.2 05/21/2018 N [facility] CMP Bili Total 0.2 mg/dL 0.0 - 1.2 05/21/2018 N Samples containing indocyanine green mus t not be measured.
No significant interference from immunoglobulins up to a concentration of 28 g/L (187 umol/L).
[facility] CMP Alk Phos 65 Inter. Units/L 40 - 130 05/21/2018 N [facility] CMP AST 46 Units/L 0 - 40 05/21/2018 H [facility] CMP ALT(SGPT) 31 Inter. Un its/L 0 - 33 05/21/2018 N [facility] Lipid wDir LDL Cholesterol 1 55 mg/dL - <=200 05/21/2018 N Low risk <200 mg/dl
Borderline risk 201-239 mg/dl
High risk 240 mg/dl and greater
[facility] Lipid wDir LDL HDL 51 mg/dL >=60 05/21/2018 L May 25, 2017: Gen 4 HDL assay will result in a patient value shift of approximately 7% lower values.

<40 Major risk factor for CHD
> or = 60 Negative risk factor
[facility] Lipid wDir LDL LDL Direct 9 0 mg/dL - <=100 05/21/2018 N [facility] Lipid wDir LDL Chol/HDL Ratio 3 .0 - <=4.5 05/21/2018 N [facility] Lipid wDir LDL Triglycerides 1 21 mg/dL - <=150 05/21/2018 [facility] Magnesium Magnesium 1.8 mg/dL 1.6 - 2.6 05/21/2018 N Critical High for OB Patients >=7.0 mg/d l.
[facility] CMP Sodium 144 mmol/L 136 - 145 05/21/2018 N [facility] CMP Potassium 3.8 mmol/L 3.5 - 5.1 05/21/2018 N [facility] CMP Chloride 107 mmol/L 98 - 107 05/21/2018 N [facility] Auto Diff Neutrophils 81 % 44 - 76 05/21/2018 H [facility] Auto Diff Lymphocytes % 10 % 13 - 43 05/21/2018 L [facility] Auto Diff Monocytes % 7 % 0 - 13 05/21/2018 N [facility] Auto Diff Eosinophils % 0 % 0 - 7 05/21/2018 N [facility] Auto Diff Basophils % 1 % 0 - 3 05/21/2018 N [facility] Auto Diff Immature Granulocytes % 0 % 0 - 0 05/21/2018 N [facility] Auto Diff Neutro Absolute 6.0 x1 0'3/microL 1.4 - 7.2 05/21/2018 N [facility] Auto Diff Lymph Absolute 0.8 x1 0'3/microL 1.2 - 3.4 05/21/2018 L [facility] Auto Diff Rice Absolute 0.5 x1 0'3/microL 0.1 - 0.6 05/21/2018 N [facility] Auto Diff Eos Absolute 0.0 x1 0'3/microL 0.0 - 0.5 05/21/2018 N [facility] Auto Diff Basophil Absolute 0.0 x1 0'3/microL 0.0 - 0.2 05/21/2018 N [facility] [place] [facility] Auto Diff Immature Grans Abs 0.0 x1 0'3/microL 0.0 - 0.0 05/21/2018 N [facility] [place] [facility] CBC/Diff WBC 7.4 x10'3/micro L 4.0 - 11.0 05/21/2018 [facility] CBC/Diff RBC 4.00 x10'6/micr oL 3.90 - 5.60 05/21/2018 [facility]/Diff Hgb 10.3 g/dL 12.0 - 16.0 05/21/2018 L [facility] CBC/Diff Hct 34 % 35 - 47 05/21/2018 [facility] CBC/Diff MCV 84 fL 81 - 99 05/21/2018 [facility] CBC/Diff MCH 26 pg 27 - 34 05/21/2018 [facility] CBC/Diff MCHC 31 g/dL 30 - 36 05/21/2018 [facility] CBC/Diff RDW 14.9 % - <=16.4 05/21/2018 N [facility] CBC/Diff Platelet 272 x10 '3/microL 140 - 400 05/21/2018 N [facility] CBC/Diff MPV 9.8 fL 6.5 - 10.4 05/21/2018 N [facility] K Potassium 3.8 mmol/L 3.5 - 5.1 05/21/2018 N [facility] CHEMISTRY Estimated Average Glucose 131 mg/dL 05/20/2018 [facility] CHEMISTRY Hgb A1c 6.2 % 0.0 - 5.6 05/20/2018 [facility] ENDOCRINE/TUMOR MARKER TSH Bureau 4.26 microInter.Units/mL 0.27 - 4.20. 05/20/2018 [facility] ENDOCRINE/TUMOR MARKER T4 Free 1.3 ng/dL 0.9 - 1.7 05/20/2018 [facility] T4 Free T4 Free 1.3 ng/dL 0.9 - 1.7 05/20/2018 N [facility] HgbA1c Hgb A1c 6.2 % 0.0 - 5.6 05/20/2018 H Prediabetes: 5.7 - 6.4%
Very High Ri sk: 6.0 - 6.4 %
Diabetes: >/= 6.5%
[facility] HgbA1c Estimated Average Glucose 131 mg/dL 05/20/2018 NA [facility] TSH Brennan TSH Bureau 4.26 erin roInter.Units/mL 0.27 - 4.20 05/20/2018 H [facility] CHEMISTRY Glucose, POC 96 mg/ dL 70 - 100 05/20/2018 Result Comment: Meter ID: [id number]<b r/>Medical Accountant: [id number] MAYURIALEXA REYES [facility] BMP Sodium 143 mmol/L 136 - 145 05/20/2018 N [facility] BMP Potassium 2.8 mmol/L 3.5 - 5.1 05/20/2018 CRIT [facility] BMP Chloride 102 mmol/L 98 - 107 05/20/2018 N [facility] BMP AGAP 15 mmol/L 3 - 12 05/20/2018 H [facility] BMP CO2 26 mmol/L 22 - 29 05/20/2018 N [facility] BMP Glucose 208 mg/dL 70 - 100 05/20/2018 H [facility] BMP BUN 6 mg/dL 8 - 20 05/20/2018 L [facility] BMP Creatinine 0.8 mg/dL 0.7 - 1.2 05/20/2018 N The presence of ketone bodies can cause artificially high results in serum, plasma and urine.
[facility] BMP Calcium 8.5 mg/dL 8.6 - 10.2 05/20/2018 L [facility] Renal Funct Index GFR (CKD-EPI) 89.1 mL/min/1.73 m2 05/20/2018 NA GFR calculated based on CKD -EPI Creatinine Equation (2009).
Age(years) Average GFR
20-29 116 mL/min/1.73 m^2
30-39 107 mL/min/1.73 m^2
40-49 99 mL/min/1.73 m^2
50-59 93 mL/min/1.73 m^2
60-69 85 mL/min/1.73 m^2
70+ 75 mL/min/1.73 m^2

Acceptable GFR =>60 mL/min/1.73 m^2
Chronic Kidney Disease <60 mL/min/1.73 m^2
Kidney Failure <15 mL/min/1.73 m^2
[facility] CBC WBC 8.3 x10'3/microL 4.0 - 11.0 05/20/2018 N [facility] CBC RBC 4.16 x10'6/microL 3.90 - 5.60 05/20/2018 N [facility] CBC Hgb 10.7 g/dL 12.0 - 16.0 05/20/2018 L [facility] CBC Hct 34 % 35 - 47 05/20/2018 L [facility] CBC MCV 82 fL 81 - 99 05/20/2018 N [facility] CBC MCH 26 pg 27 - 34 05/20/2018 L [facility] CBC MCHC 31 g/dL 30 - 36 05/20/2018 N [facility] CBC RDW 14.7 % - <=16.4 05/20/2018 N [facility] CBC Platelet 298 x10'3/microL 140 - 400 05/20/2018 N [facility] CBC MPV 9.5 fL 6.5 - 10.4 05/20/2018 N [facility] IMMUNO/SEROLOGY HCG Urine QuaL POC Negative <sup>1</sup>
(2/21/19 12:04 PM) 05/20/2018 Result Comment: Meter ID: [id number]
Medical Accountant: [id number] MAYURI DARLA [facility] Glucose WB POC SMM Glucose, POC 96 mg/dL 70 - 100 05/20/2018 N Meter ID: [id number]
Medical Accountant: [id number] MAYURI AMY
[facility] UCG POC SMM HCG Urine QuaL POC Nega tive 05/20/2018 N Meter ID: [id number]
Medical Accountant: [id number] MAYURI AMY
[facility] CHEMISTRY Potassium POC 3.5 mm ol/L 3.8 - 5.2 01/28/2018 Result Comment: Meter ID: [id number]
Ope rator: [id number] [facility] IMMUNO/SEROLOGY HCG Urine QuaL POC Negative <sup>1</sup>
(01/28/18 11:24 AM) 01/28/2018 Result Comment: Meter ID: [id number]
Medical Accountant: [id number] DI [facility] ISTAT SMM Potassium POC 3.5 mm ol/L 3.8 - 5.2 01/28/2018 L Meter ID: [id number]
Medical Accountant: [id number] [place]
[facility] UCG POC SMM HCG Urine QuaL POC Nega tive 01/28/2018 N Meter ID: [id number]
Medical Accountant: [id number] DI [facility] HP Urease H pylori Negative Negative 11/06/2017 N [facility] Vit B1 WB Vitamin B1 (WB) Lvl 128 nm ol/L 70-180 07/10/2013 NA INTERPRETIVE INFORMATION: Vitamin B1, Wh ole Blood

The concentration of thiamine diphosphate (TDP), the
primary active form of vitamin B1, is measured in this
assay. Approximately 90% of vitamin B1 present in whole
blood is TDP. Thiamine and thiamine monophosphate, which
comprise the remaining 10%, are not measured.

Test developed and characteristics determined by [facility]
Laboratories. See Compliance Statement B: [employer]/
Performed by [facility],
[address] [facility],[place] [address]
[email or web address], Jose J Vásquez MD - Lab. Director
[facility] Protime PT 13.6 second 11.5 - 15.0 11/18/2012 N [facility] Protime INR 1.0 11/18/2012 NA [facility] Protime PT 13.9 second 11.5 - 15.0 11/16/2012 N [facility] Protime INR 1.1 11/16/2012 NA [facility] Pathology Reports No Data Provided for This Section Diagnostic Reports No Data Provided for This Section Consultation Notes Results Value Date Source Operative Report Operative Rep ort DATE: 05/20/18 SURGEON: CB JONES MD PREOPERATIVE DIAGNOSIS: Morbid obesity with comorbidities. Previous failed gastric band. POSTOPERATIVE DIAGNOSIS: Morbid obesity with comorbidities. Previous failed gastric band. OPERATION PERFORMED: Laparoscopic vertical sleeve gastrectomy. MEDICAL ADVISOR: ANTHONY Thomas. INDICATIONS: A 53-year-old female with comorbid obesity and a previous failed gastric band that was removed. FINDINGS: Adhesions from the previous surgeries. DESCRIPTION OF PROCEDURE: The patient was prepped and draped over the abdomen in the usual sterile fashion. A supraumbilical incision was then created and a 12 mm direct view trocar was advanced into the peritoneal cavity. The abdomen was insufflated to a pressure of 15 mmHg and became protuberant. A left mid abdominal 12 mm port was then placed followed by a left subcostal 12 mm port. A right mid abdominal 12 mm port was then placed followed by a right subcostal 5 mm port. The patient was placed into deep reverse Trendelenburg position. A 5 mm subxiphoid transverse incision was made with the scalpel and a Gilda liver retractor was advanced into the abdomen through this puncture site and was used to retract the left lobe of the liver off the proximal stomach and gastroesophageal junction. There were adhesions around the GE junction and left lobe of the liver from the previous band and removal surgeries. These were taken down with electrocautery until the proximal gastric anatomy was clear. The pylorus was then identified and using the Harmonic scalpel, an opening was created into the lesser sac approximately 6 cm proximal to the pylorus. The short gastric vessels were then taken down in a cephalad direction heading up the full length of the greater curvature. The highest short gastric vessels were also carefully taken down and the stomach was freed completely into the angle of His. The filmy adhesions in the lesser sac were then taken down with the harmonic scalpel as well. A 34 Montserratian bougie dilator was advanced under laparoscopic guidance to the pylorus. The bougie dilator was trapped immediately adjacent to the lesser curvature by using the combination of graspers and the 60 mm S[place]ppy linear stapler. A green load of the linear stapler was fired to start the gastric resection using the bougie dilator as a template along the lesser curvature. The blue loads of the linear stapler were then used and the gastric division was continued using the bougie dilator as the template along the lesser curvature. Gold loads of the stapler were used on the thicker, scarred, proximal portions of the stomach. The gastric resection was then completed. Suture line hemostasis was completed with electrocautery and the suture line remained hemostatic and intact. The bougie dilator was gently removed and the suture line was again reinspected. The left mid abdominal port site was then dilated sequentially and the gastric remnant was brought out on the end of the Jed clamp. The fascial opening at this site was then closed with an 0 Vicryl suture, placed on an EndoClose device. An endoscope was then passed via the patient's mouth and down into the gastric sleeve. The entirety of the sleeve was inspected internally and found to appear normal without evidence of bleeding. The staple line was then placed under water and the sleeve was inflated. The sleeve remained airtight and hemostatic. The EGD scope was then withdrawn. Tisseel was then sprayed along the staple line to improve hemostasis. A 19 Montserratian Chaim drain was placed through the left subcostal port site and laid next to the sleeve staple line. The drain was secured to the skin with a 2-0 nylon suture. The liver retractor was then removed. The ports were removed under direct vision and remained hemostatic. The wounds were irrigated and the skin of all incisions was closed with margarita. Next, 20 mL of local anesthetic was then injected into the incisions. The procedure was then terminated and the patient tolerated it well. There were no complications. 05/24/2018 [facility] Consultation Report Consulting Physician Patient is a 53-year-old female with past medical history significant for morbid obesity status post gastric sleeve surgery on 05/20/2018, history of factor 5 Leiden deficiency status post multiple blood clots status post IVC filter placement and being on Eliquis, history of hypothyroidism, GERD, who had gastric sleeve done today. Except abdominal pain on REFRIGERATION INSULATOR she has no other symptoms. She denies any fevers, chills, hemoptysis, hematemesis, hematuria, melena, weakness, numbness, or loss of consciousness. Subjective/History of Present Illness Patient is status post Surgery postop day number. patient is seen in consultation for medical management. patient is not complaining of nausea or vomiting at this time. Patient denies recent fevers, chills, nausea/vomiting/diarrhea. Home medications and medical history reviewed. Review of Systems Fourteen points review of system are negative except subjective. Objective Vitals and Measurements (Last Charted) T: 97.2 F TMIN: 97.2 F TMAX: 97.6 F HR: 104 RR: 12 BP: 148/85 SpO2: 97% WT: 101.7 kg BMI: 38.28 Physical Exam General: Alert and oriented, No acute distress. Eye: Pupils are equal, round and reactive to light, Intact accommodation, Vision unchanged. HENT: Normocephalic, Tympanic membranes are clear, Normal hearing. Neck: Supple, Non-tender, No jugular venous distention. Respiratory: Lungs are clear to auscultation, Respirations are non- labored, Breath sounds are equal, Symmetrical chest wall expansion. Cardiovascular: Normal rate, Regular rhythm, Good pulses equal in all extremities, Normal peripheral perfusion, No edema. Gastrointestinal: Tender to touch, positive guarding, no rebound, incision, drain, dry, clean, intact. Musculoskeletal: Normal range of motion, Normal strength. Integumentary: Warm, Dry, Intact. Neurologic: Alert, Oriented, Normal motor function. Psychiatric: Cooperative. Lab Results LABORATORY RESULTS CBC and Plt w/o Diff WBC 8.3 x10'3/microL 05/20/18 1740 RBC 4.16 x10'6/microL 05/20/18 1740 Hgb 10.7 g/dL 05/20/18 1740 Hct 34 % 05/20/18 1740 Platelet 298 x10'3/microL 05/20/18 1740 Prothrombin Time with INR INR No results in last 24hrs PTT_INR No results in last 24hrs PTT PTT No results in last 24hrs Basic Metabolic Panel Sodium 143 mmol/L 05/20/18 1740 Potassium 2.8 mmol/L 05/20/18 1740 Chloride 102 mmol/L 05/20/18 1740 CO2 26 mmol/L 05/20/18 1740 Glucose 208 mg/dL 05/20/18 1740 BUN 6 mg/dL 05/20/18 1740 Creatinine 0.8 mg/dL 05/20/18 1740 Calcium 8.5 mg/dL 05/20/18 1740 Radiology (Past 36 Hrs) COMPLETED RADIOLOGY IMAGING STUDIES: No Imaging Results in the last 36 hours Clinical Impression and Recommendation Morbid obesity status post gastric sleeve on 05/20/2018 History of factor 5 Leiden deficiency Anemia: Most likely postop. Hypokalemia History of multiple blood clots status post IVC on Eliquis History of hypothyroidism GERD Plan: -postop management per primary -monitor labs and electrolyte replace per protocol -monitor H&H closely and transfuse if hemoglobin less than 7 -replaced potassium -resume appropriate home medications once reconciled, patient currently NPO -would recommend resuming Eliquis as soon as possible whenever okay with primary -Weight loss recommended -continue home medications -VTE prophylaxis per primary -PT/OT -bowel regimen -Pain control per primary. We will follow. Thank you for consult. Portions of this document have been dictated using voice recognition software. As such, there may be grammatical or typographical errors. As much as I am diligent to proof read and correct these mistakes, there still might be mistakes in this document due to the voice recognition software. Problem List Ongoing Morbid obesity Historical No qualifying data Medications Inpatient acetaminophen-HYDROcodone 325 mg-7.5 mg/15 mL oral solution, 15 mL, PO, Q4H (Every 4 hours), PRN albuterol, 2.5 mg, 3 mL, NEB, Q6H (Every 6 hours), PRN Albuterol NEB, 2.5 mg, 3 mL, NEB, Q6H (Every 6 hours), PRN Benadryl, 25 mg, 0.5 mL, IV Push, Q6H (Every 6 hours), PRN famotidine, 20 mg, 2 mL, IV Push, QHS (At bedtime) heparin, 5000 Unit, 1 mL, Subcut, Q12H (Every 12 hours) Lactated Ringers 1,000 mL, 1000 mL, IV [place] 5 mg-325 mg oral tablet, 1 TAB, PO, Q4H (Every 4 hours), PRN NS Bolus, 1000 mL, IV, BID (2 times a day) Ofirmev, 1000 mg, 100 mL, IV, Q6Hi (Every 6 hours interval) ondansetron, 4 mg, 2 mL, IV Push, Q4H (Every 4 hours), PRN REFRIGERATION INSULATOR-HYDROmorphone [0.2 mg/mL] 100 mL (1 hr limit) 20 mg, 20 mg, 100 mL, IV, REFRIGERATION INSULATOR (Patient Controlled Analgesia) Protonix, 40 mg, IV Push, Daily scopolamine 1.5 mg transdermal film, extended release, 1 Patch, TOP, Q72H (Every 72 hours) scopolamine 1.5 mg transdermal film, extended release, 1 Patch, TOP, Q72H (Every 72 hours), PRN Sodium Chloride 0.45% intravenous solution 1,000 mL + multivitamin (IV additive) 10 mL Home hydroCHLOROthiazide 50 mg oral tablet, 50 mg, 1 TAB, PO, Daily hydrOXYzine hydrochloride 10 mg oral tablet, 10 mg, 1 TAB, PO, Daily Lexapro 10 mg oral tablet, 10 mg, 1 TAB, PO, QHS (At bedtime) pantoprazole 40 mg oral delayed release tablet, 40 mg, 1 TAB, PO, QHS (At bedtime) Xarelto 10 mg oral tablet, 10 mg, 1 TAB, PO, QHS (At bedtime) Allergies oxyCODONE (itching) Pertinent Social History Social History: Preferred Language: [place] Recent Travel: No recent travel Signs of Abuse: No Domestic Concerns: None Tobacco Use Smoking Status: Never smoked Tobacco use: Never Tobacco cessation information Recreational Drug Use Recreational Drug Use: None Drug Type: Last Used: Never smoked, denies alcohol or illicit drugs. Patient Stated Health History PATIENT HEALTH HISTORY Blood clot Patient delivery Patient Cholecystectomy Patient Exercise tolerance Patient Factor 5 Leiden mutation, heterozygous.. Patient Gastric reflux Patient Laparoscopic adjustable gastric banding Patient Leg Patient Rotator cuff Patient Shoulder Patient Swelling Patient Thyroid disease Patient Vaginal delivery Patient Vena cava filter Patient FAMILY HEALTH HISTORY Family history significant for heart disease 05/20/2018 [facility] Procedure Report Operative Inf ormation Pre-Op Diagnosis: Morbid Obesity with Co-morbidities. Post-Op Diagnosis: Same as preop. Procedure: Laparoscopic Vertical Sleeve Gastrectomy, EGD Surgeon(s): Dr. Cb Jones. Pump Technician(s): Willie Balderas PA-C Anesthesia: General. Specimens: None. Wound Type: Clean-contaminated. Drains: Narayan-Young, Catheter. Complications: None. Estimated blood loss: Minimal. Patient Condition: Good. 05/20/2018 [facility] Operative Report DATE: 8 SURGEON: CB JONES MD PREOPERATIVE DIAGNOSIS: Slipped gastric band. POSTOPERATIVE DIAGNOSIS: Slipped gastric band. PROCEDURE PERFORMED: Laparoscopic gastric band removal. MEDICAL ADVISOR: ANTHONY Thomas. INDICATIONS: The 52-year-old female with gastric band slippage and severe dysphagia and reflux. FINDINGS: Slipped gastric band. DESCRIPTION OF PROCEDURE: The abdomen was prepped and draped in normal sterile fashion. An incision was created over the port palpable in the subcutaneous tissues which were divided with electrocautery. The dissection was carried down to the port which was then grasped with a Jed clamp and released from the surrounding capsule by dividing all the sutures. The port was then exteriorized and the tubing was cut. A 15 mm Optiview trocar was placed through this incision, which happened to be in the right mid abdomen. The abdominal cavity was entered and pneumoperitoneum was established. Additional ports were then placed under direct vision including a 12 mm port in the left mid abdomen and a 5 mm port in the left upper quadrant. A 5 mm port in the right upper quadrant and then a subxiphoid Gilda retractor for the left lobe of the liver. The band was seen to be in a slipped position around the stomach. The capsule around the band was then divided using electrocautery until the band was completely free. The band was then cut and removed from around the stomach and passed off the table. The modified fundoplication was then divided using electrocautery and a modified capsulectomy was also performed. Good hemostasis was seen at the end of the case and all ports were removed under direct visualization as the abdomen was allowed to desufflate. A #1 Vicryl suture was used to close the incision where the port had been localized and the skin of all incisions were closed with margarita. Local anesthesia was then infiltrated into all of the incisions and sterile dressings were applied. The procedure was then terminated. 01/28/2018 [facility] Procedure Report Operative Inf ormation Pre-Op Diagnosis: Dysphagia, severe GERD, slipped gastric band Post-Op Diagnosis: Same as preop. Procedure: Laparoscopic Gastric Band Removal Surgeon(s): Dr. Cb Jones. Pump Technician(s): Willie Balderas PA-C Anesthesia: General. Specimens: None. Wound Type: Clean-contaminated. Drains: None. Complications: None. Estimated blood loss: Minimal. Patient Condition: Good. 01/28/2018 [facility] Discharge Summaries Results Value Date Source Discharge Summary DATE OF ADMI SSION: 05/20/18 DATE OF DISCHARGE: 05/21/18 ADMITTING AND DISCHARGING PHYSICIAN: Cb Jones MD CONSULTING PROVIDER: IPC to address postop medical conditions and medications. REASON FOR ADMISSION: Status post laparoscopic sleeve gastrectomy. FINAL DIAGNOSIS: Morbid Obesity with comorbidities. PATIENT PROFILE: 53 yo female with longstanding history of morbid obesity and worsening comorbidities. HOSPITAL COURSE: This patient underwent the bariatric operation and had a satisfactory postoperative course. On postoperative day #1, the patient was tolerating a bariatric liquid diet. Their pain was controlled on oral medications. They ambulated without difficulty and voiding spontaneously. All of the patient's vital signs, physical exam findings and lab results were within expected limits and they were deemed fit for discharge. DISCHARGE INSTRUCTIONS: The patient was discharged home in stable condition. The patient is to continue on a bariatric liquid diet as instructed. They should resume light activity as tolerated. The patient received teaching for application of Lovenox injections at home. They were given a prescription for Oxycodone and Prilosec. The patient will follow up in the clinic in 1 week. 05/21/2018 [facility] Discharge Summary DATE OF ADMI SSION: 01/28/18 DATE OF DISCHARGE: 01/28/18 ADMITTING AND DISCHARGING PHYSICIAN: Cb Jones MD CONSULTING PROVIDER: None REASON FOR ADMISSION: Status post laparoscopic gastric band removal. FINAL DIAGNOSIS: Slipped gastric band, Dysphagia and GERD PATIENT PROFILE: 52 yo female with history of lap band pl acement for morbid obesity. HOSPITAL COURSE: This patient underwent the bariatric operation and had a satisfactory postoperative course. On day of operation, the patient was tolerating a bariatric liquid diet. Their pain was controlled on oral medications. They ambulated without difficulty and voiding spontaneously. All of the patients vital signs, physical exam findings and lab results were within expected limits and they were deemed fit for discharge. DISCHARGE INSTRUCTIONS: The patient was discharged home in stable condition. The patient is to continue on a bariatric liquid diet as instructed. They should resume light activity as tolerate. They were given a prescription for Oxycodone. The patient will follow up in the clinic in 1 week. 02/01/2018 [facility] History and Physicals Results Value Date Source History and Physical DATE OF A DMISSION: 05/20/2018 ADMITTING PHYSICIAN: CB JONES MD PROPOSED DATE OF OPERATION: 05/20/2018. CHIEF COMPLAINT: Inability to control her weight. HISTORY OF PRESENT ILLNESS: This is a 53-year-old female patient with a past medical history significant for laparoscopic gastric band placement with subsequent laparoscopic gastric band removal. This patient has been overweight for most of their adult life and has been trying to lose weight for the most of that time without success. The patient has multiple comorbidities as a result of their obesity and has tried multiple medical weight loss regimens without success. The patient has also been managed at the [facility] under the supervision of a bariatric training technician for the past several months. Although, the patient has been compliant with a low-fat, low-carbohydrate diet, they have failed to progress as would be expected. The patient has no other complaints at this time. PAST MEDICAL HISTORY: Morbid obesity, GERD, joint pain, and factor V Leiden disease. PAST SURGICAL HISTORY: Laparoscopic gastric band placement, laparoscopic gastric band removal, laparoscopic cholecystectomy, and . ENDOCRINE HISTORY: All other metabolic disorders for weight gain have been ruled out. SOCIAL HISTORY: The patient admits to occasional alcohol use. She denies any smoking or illicit drug use. MEDICATION LIST: All of the patient's home medications were reconciled and reviewed. Please refer to complete list. ALLERGIES: NO KNOWN DRUG ALLERGIES. REVIEW OF SYSTEMS: 14-point review of systems was performed and was overall negative, except as per HPI. PHYSICAL EXAMINATION: VITAL SIGNS: Height 64 inches, weight 194 pounds, BMI 34. Blood pressure 101/73. GENERAL: This is a fully awake, alert, and oriented patient, in no acute distress. HEAD: Normocephalic and atraumatic. NECK: Supple without adenopathy. CHEST: Regular. Unlabored respirations. Clear to auscultation bilaterally. HEART: Regular rate and rhythm. ABDOMEN: Obese, however, soft and nontender. EXTREMITIES: Without clubbing, cyanosis, or edema. SKIN: Warm, dry, and pink. NEUROLOGIC: Cranial nerves 2 through 12 are grossly intact. PSYCHIATRIC: Appropriate mood and affect. DIAGNOSTIC AND RADIOLOGIC STUDIES: The patient went an EKG, which showed borderline left atrial abnormality. The patient underwent EGD, showing no mass, ulceration, lesion, or polyp, and test for H pylori was negative. The patient underwent a home sleep test that showed obstructive sleep apnea and was placed on CPAP therapy. LABORATORY DATA: CBC and T4 within normal limits. CMP; potassium 3.5, hemoglobin A1c 5.7. Lipid panel; total cholesterol 234, LDL 143, triglycerides 168. CONSULTS: The patient consulted with bariatric dietitian and participated in a preoperative education class. They also consulted with psychology, Dr. Eric Dasilva, and were deemed an appropriate candidate for weight loss surgery. DIAGNOSTIC IMPRESSION: Morbid obesity with comorbidities. PLAN: After discussing options with the patient, she wishes to undergo laparoscopic sleeve gastrectomy. The patient was explained the procedure in detail and participated in preoperative education of the risks and benefits of the surgery as noted in the informed consent document, which the patient signed. All questions were answered to their satisfaction and they wished to proceed with surgery. LORRAINE/[id number] /[id number] 05/11/2018 [facility] Brandie segundo Pose[facility] History and Physical DATE OF ADMISSION: 01/28/2018 ADMITTING PHYSICIAN: CB JONES MD PROPOSED DATE OF OPERATION: 01/28/2018. CHIEF COMPLAINT: Inability to control her weight. HISTORY OF PRESENT ILLNESS: This is a 52-year-old female patient. She has a history of gastric band placement for Morbid obesity. Patient has developed dysphagia, GERD and vomiting. Patient also has developed weight regain due to maladaptive eating patterns. Recent EGD showed a slipped gastric band. Patient interested in band removal at this time. PAST MEDICAL HISTORY: Morbid obesity, GERD, joint pain, and factor V Leiden disease. PAST SURGICAL HISTORY: Laparoscopic gastric band placement, laparoscopic cholecystectomy, , and arthroscopic surgery. ENDOCRINE HISTORY: All other metabolic disorders for weight gain have been ruled out. SOCIAL HISTORY: The patient admits to occasional alcohol use. She denies any smoking or illicit drug use. MEDICATION LIST: All of the patient's home medications were reconciled and reviewed. Please refer to complete list. ALLERGIES: NO KNOWN DRUG ALLERGIES. REVIEW OF SYSTEMS: 14-point review of systems was performed and was overall negative, except as per HPI. PHYSICAL EXAMINATION: VITAL SIGNS: Height 64 inches, weight 194 pounds, BMI 34. Blood pressure 101/73. GENERAL: This is a fully awake, alert, and oriented patient, in no acute distress. HEAD: Normocephalic and atraumatic. NECK: Supple without adenopathy. CHEST: Regular. Unlabored respirations. Clear to auscultation bilaterally. HEART: Regular rate and rhythm. ABDOMEN: Obese, however, soft and nontender. EXTREMITIES: Without clubbing, cyanosis, or edema. SKIN: Warm, dry, and pink. NEUROLOGIC: Cranial nerves 2 through 12 are grossly intact. PSYCHIATRIC: Appropriate mood and affect. LABORATORY AND X-RAY DATA: Diagnostic and radiologic studies: The patient underwent an EKG, which showed borderline left atrial abnormalities. The patient underwent an EGD, which showed a slipped gastric band. Laboratory data: CBC and T4 within normal limits. CMP; potassium 3.5. Hemoglobin A1c 5.7. Lipid panel; LDL 143, total cholesterol 234, triglycerides 168. DIAGNOSTIC IMPRESSION: Severe gastroesophageal reflux disease, dysphagia, and slipped gastric band. PLAN: After discussing options with the patient, she wishes to undergo a laparoscopic gastric band removal. The patient was explained the procedure in detail and participated in the preoperative education of the risks and benefits of the surgery as noted in the informed consent document, which the patient signed. All questions were answered to her satisfaction and she wished to proceed with surgery. LORRAINE/[id number] /[id number] 01/21/2018 [facility] Vital Signs Vital Sign Value Date Comments Source Respiratory Rate 16 br/min 05/21/2018 [facility] Systolic 120 mm[Hg] 05/21/2018 [facility] Diastolic 71 mm[Hg] 05/21/2018 [facility] Temp Method Oral (05/21/18 7:38 AM) 05/21/2018 [facility] Heart Rate 70 bpm 05/21/2018 [facility] Temperature 98.6 [degF] 05/21/2018 [facility] MAP 100 mm[Hg] 05/20/2018 [facility] N[facility] MAP Calc 106 05/20/2018 [facility] Heart Rhythm Interpretation Si nus tachycardia (05/20/18 3:35 PM) 05/20/2018 [facility] BP Cuff Size Large (05/20/18 3: 35 PM) 05/20/2018 [facility] BP Location Arm, right ( 9 3:35 PM) 05/20/2018 [facility] NIBP Method Automatic (05/20/18 3:35 PM) 05/20/2018 [facility] NIBP Alarms set and on Yes ( 3:35 PM) 05/20/2018 [facility] Vital Signs Status/Type Pre Pr ocedure (05/20/18 12:00 PM) 05/20/2018 [facility] Vital Signs Status/Type Post p rocedure (01/28/18 4:45 PM) 01/28/2018 [facility] NIBP Systolic 116 mm[Hg] 01/28/2018 [facility] NIBP Diastolic 74 mm[Hg] 01/28/2018 [facility] Temperature 97.8 [degF] 01/28/2018 [facility] Temp Method Temporal (01/28/18 4:45 PM) 01/28/2018 [facility] Heart Rate 96 bpm 01/28/2018 [facility] er Respiratory Rate 16 br/min 01/28/2018 [facility] BP Location Arm, left (01/28/18 4:45 PM) 01/28/2018 [facility] NIBP MAP Calc 88 01/28/2018 [facility] er NIBP MAP 75 mm[Hg] 01/28/2018 [facility] er Heart Rhythm Interpretation Si nus/atrial rhythm (01/28/18 3:40 PM) 01/28/2018 [facility] Vital Signs Status Vital signs taken (01/28/18 11:00 AM) 01/28/2018 [facility] Encounters Location Location Details Encounter Type Encounter Number Reason For Visit Attending Provider ADM Date DC Date Status Source 006 006 O [id number] MORBID (SEVERE) OBESIT Y DUE TO EXCESS CALORIES CB JONES 05/20/2018 05/21/2018 [facility] Posey 006 006 I [id number] OTHER COMPLICATIONS OF GASTRIC BAND PROCEDURE CB JONES MD 01/28/2018 01/28/2018 Active [facility] [place] 006L 006L N [id number] MIRNA JONES MD 11/05/2017 11/05/2017 Active [facility] 006 006 N [id number] DUS DEREK CRUZ 07/01/2013 07/01/2013 Active [facility] 006 006 # [id number] PRE OP ED - LAP BAND - NO PT NIRALI VANN MD 01/11/2013 [facility] 006 006 O [id number] STA JOSE LUIS VANN MD 11/18/2012 11/18/2012 Active [facility] 006 006 O [id number] ALHAJI YAO MD 11/18/2012 11/18/2012 Active [facility] 006 006 O [id number] ALHAJI YAO MD 11/16/2012 11/16/2012 Active [facility] 006 006 R [id number] STA JOSE LUIS VANN MD 10/04/2012 11/28/2012 Active [facility] Procedures Procedure Code Date Perfomer Comments Source Laparoscopic Gastric Sleeve<sup>1</sup> 05/20/2018 auto- populated from documented surgical case [facility] Laparoscopic Gastric Band Revision/Removal<sup>1</sup> 01/28/2018 auto-populated from documented surgical case [facility] Plan of Care No Data Provided for This Section Social History No Data Provided for This Section Assessment and Plan No Data Provided for This Section Family History No Data Provided for This Section Advance Directives No Data Provided for This Section Functional Status No Data Provided for This Section
--- OUTSIDE RECORDS SUMMARY | 2019-10-19 12:17 | XMS REPORT | Clinical Summary ---
Author Author [facility] Organization [facility] Address Unknown Phone Unavailable Care Team Providers Care Preschool Teacher Aide Name Role Phone Elias Powell MD Unavailable Unavailable Callie López MD PCP Source Comments Some departments are not documenting in the electronic medical record. If you d o not see the information that you expected, contact Release of Information in [facility] Information Management department at [phone] for further assistan ce in locating additional records.[facility] Allergies No Known Allergies Medications [...] Use Types Packs/Day Years Used Never Smoker Drinks/Week oz/Week Comments Alcohol Use Not Asked Sex Assigned at Date Recorded Not on file Industry Job Start Date Occupation Not on file Not on file Not on file Travel End Travel History Travel Start No recent travel history available. Last Filed Vital Signs Reading Time Taken Comments Vital Sign 116/77 02/27/2014 2:42 PM [facility] Blood Pressure 96 02/27/2014 2:42 PM [facility] Pulse 36.6 C (97.9 F) 02/27/2014 2:41 PM [facility] Temperature 18 02/27/2014 2:41 PM [facility] Respiratory Rate - - Oxygen Saturation - - Inhaled Oxygen Concentration 84.5 kg (186 lb 3.2 oz) 02/27/2014 2:41 PM [facility]ICE [facility] Weight 162.6 cm (5' 4") 02/27/2014 2:41 PM [facility]ICE [facility] Height 31.96 02/27/2014 2:41 PM [facility]ICE [facility] Body Mass Index Plan of Treatment Health Maintenance Due Date Last Done Comments HIV SCREENING 1981 DTAP/TDAP VACCINES (1 - 1984 Tdap) HEPATITIS C SCREENING 1984 PHYSICAL (COMPREHENSIVE) 1984 EXAM CERVICAL CANCER SCREENING 1987 BREAST CANCER SCREENING 2006 COLORECTAL CANCER 2016 SCREENING SHINGLES RECOMBINANT 2016 VACCINE (1 of 2) INFLUENZA VACCINE 12/29/2019 Results Not on filefrom Last 3 Months
--- OUTSIDE RECORDS SUMMARY | 2019-10-19 12:18 | XMS REPORT ---
Author Author Mary Jane Mcginnis Doctor Organization [facility] Address Unknown Phone Unavailable Care Team Providers Care Typewriter Mechanic Name Role Phone Migration, Doctor Unavailable Unavailable PROBLEMS Type Condition ICD9-CM Code XSZ81-SK Code Onset Dates Condition S tatus SNOMED Code Problem Thyroid follicular adenoma D34 Act phylicia 008822139 Problem History of DVT (deep vein thrombosis) Z86.718 Active 875828606 Problem Factor V Leiden D68.51 Active 3070 55461 Problem shelter (current) use of anticoagulants Z79.01 Active 606712928 Problem Hypertriglyceridemia E78.1 Active 210571804 Problem Presence of IVC filter Z95.828 Active 169744302 Problem 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 Active 627898206 Problem Peripheral edema R60.9 Active 271 098691 Problem Excessive daytime sleepiness G47.19 A ctive 077418134302 Problem Gastroesophageal reflux disease, esophagitis pre sence not specified K21.9 Active 846751449 Problem Chronic pain due to trauma G89.21 Act phylicia 775601982 Problem Pelvic pain R10.2 Active 07553828 Problem Subclinical hypothyroidism E03.9 Act phylicia 20388101 Problem Generalized anxiety disorder F41.1 A ctive 238926194 Problem Thyroid nodule E04.1 Active 27469 5005 Problem Morbid obesity E66.01 Active 04183 6002 Problem Moderate episode of recurrent major depressive disorder F33.1 Active 929354153 Problem Vitamin D deficiency E55.9 Active 29484100 ALLERGIES No Information ENCOUNTERS Encounter Location Date Diagnosis [facility] [address] [id number] [address] [place] [address] 23 Aug, 2019 [facility] [address] [id number] [address] [place] [address] 19 Aug, 2019 Morbid obesity E66.01 [facility] [address] [id number] [address] [place] [address] 11 Aug, 2019 Subclinical hypothyroidism E 03.9 [place] [address] [id number] [address] [place] [address] 05 Aug, 2019 Subclinical hypothyroidism E 03.9 and Anemia D64.9 [place] [address] [id number] [address] [place] [address] 04 Aug, 2019 [facility] [address] [id number] [address] [place] [address] Aug, [place] [address] [id number] [address] [place] [address] July, [place] [address] [id number] [address] [place] [address] July, Subclinical hypothyroidism E 03.9 and Anemia D64.9 [place] [address] [id number] [address] [place] [address] July, Thyroid nodule E04.1 ; Hyper triglyceridemia E78.1 ; Excessive daytime sleepiness G47.19 and Vitamin D deficiency E55.9 [place] [address] [id number] [address] [place] [address] July, Hypertriglyceridemia E78.1 ; Excessive daytime sleepiness G47.19 ; Vitamin D deficiency E55.9 ; Morbid obesity E66.01 ; Peripheral edema R60.9 ; Generalized anxiety disorder F41.1 and Chronic pain due to trauma G89.21 [place] [address] [id number] [address] [place] [address] 28 Jun, 2019 [place] [address] [id number] [address] [place] [address] 15 Jun, 2019 Back pain with history of sp inal surgery M54.9 [place] [address] [id number] [address] [place] [address] 12 Apr, 2019 Back pain with history of sp inal surgery M54.9 [place] [address] [id number] [address] [place] [address] 11 Apr, 2019 [place] [address] [place] [id number] [address] [place] [address] 10 Apr, 2019 Gastroenteritis K52.9 ; Back pain with history of spinal surgery M54.9 ; Dermatofibroma of lower leg, unspecified laterality D23.70 and Morbid obesity E66.01 [facility] [address] [id number] [address] [place] [address] Mar, [facility] [address] [id number] [address] [place] [address] Jan, [facility] [address] [id number] [address] [place] [address] Jan, [place] [address] [id number] [address] [place] [address] Dec, Encounter for weight managem ent Z76.89 [place] [address] [id number] [address] [place] [address] Dec, Encounter for weight managem ent Z76.89 and Screening mammogram, encounter for Z12.31 [place] [address] [id number] [address] [place] [address] Nov, Encounter for weight managem ent Z76.89 [place] [address] [id number] [address] [place] [address] Nov, Thyroid nodule E04.1 [place] [address] [id number] [address] [place] [address] Nov, Thyroid nodule E04.1 [place] [address] [id number] [address] [place] [address] Nov, Thyroid nodule E04.1 [place] [address] [id number] [address] [place] [address] Oct, Syncope, unspecified syncope type R55 and Encounter for weight management Z76.89 [place] [address] [id number] [address] [place] [address] Oct, Morbid obesity E66.01 [place] [address] [place] [id number] [address] [place] [address] Oct, Hypertriglyceridemia E78.1 [facility] [address] [id number] [address] [place] [address] Oct, [facility] [address] [id number] [address] [place] [address] Oct, Hypertriglyceridemia E78.1 [facility] [address] [id number] [address] [place] [address] Sep, Hypertriglyceridemia E78.1 a nd Vitamin D deficiency E55.9 [facility] [address] [id number] [address] [place] [address] Sep, [facility] [address] [id number] [address] [place] [address] Sep, Morbid obesity E66.01 ; Mode rate episode of recurrent major depressive disorder F33.1 ; Hypertriglyceridemia E78.1 and Vitamin D deficiency E55.9 [facility] [address] [id number] [address] [place] [address] Aug, [facility] [address] [id number] [address] [place] [address] July, [facility] [address] [id number] [address] [place] [address] July, [facility] [address] [id number] [address] [place] [address] Jun, [facility] [address] [id number] [address] [place] [address] Jun, [facility] [address] [id number] [address] [place] [address] Jun, Closed compression fracture of L3 lumbar vertebra with routine healing, subsequent encounter S32.030D and Drug-induced constipation K59.03 [facility] [address] [id number] [address] [place] [address] Jun, [facility] [address] [id number] [address] [place] [address] Jun, [facility] [address] [id number] [address] [place] [address] Apr, [facility] [address] [id number] [address] [place] [address] Apr, Morbid obesity E66.01 [facility] [address] [id number] [address] [place] [address] Apr, Morbid obesity E66.01 ; Hype rtriglyceridemia E78.1 ; Gastroesophageal reflux disease, esophagitis presence not specified K21.9 and Joint pain M25.50 [facility] [address] [id number] [address] [place] [address] Feb, [facility] [address] [address] Feb, [facility] [address] [place] [id number] [address] [place] [address] Jan, Acute bacterial conjunctivit is H10.30 [facility] [address] [place] [id number] [address] [place] [address] 08 Dec, 2017 [facility] [address] [place] [id number] [address] [place] [address] 04 Dec, 2017 [facility] [id number] [place] [address] 17 Nov, 2017 [facility] [address] [id number] [address] [place] [address] 07 Nov, 2017 Obstructive sleep apnea G47. 33 ; Morbid obesity E66.01 and Gastroesophageal reflux disease, esophagitis presence not specified K21.9 [facility] [address] [id number] [address] [place] [id number] 06 Nov, 2017 Encounter for examination of eyes and vision without abnormal findings Z01.00 [facility] [address] [id number] [address] [place] [address] Oct, Thyroid nodule E04.1 and Scr eening for breast cancer Z12.31 [facility] [address] [id number] [address] [place] [address] Oct, History of DVT (deep vein th rombosis) Z86.718 ; Thyroid nodule E04.1 and Gastroesophageal reflux disease, esophagitis presence not specified K21.9 [facility] [address] [id number] [address] [place] [address] Oct, [facility] [address] [id number] [address] [place] [address] Sep, [place] [address] [id number] [address] [place] [address] Aug, [place] [address] [place] [id number] [address] [place] [address] Aug, [place] [address] [place] [id number] [address] [place] [address] Aug, Acute pain of left shoulder M25.512 and Thyroid nodule E04.1 [place] [address] [place] [id number] [address] [place] [address] July, Superior glenoid labrum lesi on of left shoulder, subsequent encounter S43.432D [place] [address] [place] [id number] [address] [place] [address] Jun, History of DVT (deep vein th rombosis) Z86.718 [facility] [address] [id number] [address] [place] [address] Jun, History of DVT (deep vein th rombosis) Z86.718 [place] [address] [id number] [address] [place] [address] Jun, Impingement syndrome, should er, left M75.42 [facility] [address] [place] [id number] [address] [place] [address] May, Subacromial bursitis of left shoulder joint M75.52 [place] [address] [id number] [address] [place] [address] May, [place] [address] [id number] [address] [place] [address] May, Hypertriglyceridemia E78.1 ; 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 and Excessive daytime sleepiness G47.19 [place] [address] [id number] [address] [place] [address] May, History of DVT (deep vein th rombosis) Z86.718 ; Generalized anxiety disorder F41.1 ; Hypertriglyceridemia E78.1 ; shelter (current) use of anticoagulants Z79.01 ; Subacromial bursitis of left shoulder joint M75.52 and Excessive daytime sleepiness G47.19 [place] [address] [id number] [address] [place] [address] May, [place] [address] [id number] [address] [place] [address] May, 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 (current) use of a nticoagulants Z79.01 [place] [address] [id number] [address] [place] [address] Apr, 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 (current) use of a nticoagulants Z79.01 [place] [address] [id number] [address] [place] [address] Apr, 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 (current) use of a nticoagulants Z79.01 [place] [address] [id number] [address] [place] [address] Apr, 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 (current) use of a nticoagulants Z79.01 [place] [address] [id number] [address] [place] [address] Apr, [place] [address] [id number] [address] [place] [address] Apr, shelter (current) use of a nticoagulants Z79.01 [facility] [address] [id number] [address] [place] [address] 13 Apr, 2017 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 (current) use of a nticoagulants Z79.01 [facility] [address] [id number] [address] [place] [address] Apr, shelter (current) use of a nticoagulants Z79.01 [facility] [address] [id number] [address] [place] [address] Apr, shelter (current) use of a nticoagulants Z79.01 [facility] [address] [id number] [address] [place] [address] Apr, shelter (current) use of a nticoagulants Z79.01 [facility] [address] [id number] [address] [place] [address] Apr, 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 (current) use of a nticoagulants Z79.01 [facility] [address] [id number] [address] [place] [address] Mar, 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 (current) use of a nticoagulants Z79.01 [facility] [address] [id number] [address] [place] [address] Mar, [facility] [address] [id number] [address] [place] [address] Mar, shelter (current) use of a nticoagulants Z79.01 [facility] [address] [id number] [address] [place] [address] [id number] Jan, Dental examination Z01.20 [facility] [address] [id number] [address] [place] [id number] Jan, [facility] [address] [id number] [address] [place] [address] Jan, 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 (current) use of a nticoagulants Z79.01 [facility] [address] [id number] [address] [place] [address] Jan, History of DVT (deep vein th rombosis) Z86.718 [facility] [address] [id number] [address] [place] [address] Jan, Generalized anxiety disorder F41.1 and Peripheral edema R60.9 [facility] [address] [id number] [address] [place] [address] Nov, History of DVT (deep vein th rombosis) Z86.718 [facility] [address] [id number] [address] [place] [address] Nov, shelter (current) use of a nticoagulants Z79.01 [facility] [address] [id number] [address] [place] [address] Nov, Acute non-recurrent maxillar y sinusitis J01.00 [facility] [address] [id number] [address] [place] [address] Oct, 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 (current) use of a nticoagulants Z79.01 [place] [address] [id number] [address] [place] [address] Oct, Personal history of venous t hrombosis and embolism Z86.718 [facility] [address] [id number] [address] [place] [address] Sep, [facility] [address] [id number] [address] [place] [address] Sep, Personal history of venous t hrombosis and embolism Z86.718 [facility] [address] [id number] [address] [place] [address] Sep, 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 (current) use of a nticoagulants Z79.01 [facility] [address] [id number] [address] [place] [address] Sep, 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 (current) use of a nticoagulants Z79.01 [place] [address] [id number] [address] [place] [address] Sep, Generalized anxiety disorder F41.1 and History of DVT (deep vein thrombosis) Z86.718 [place] [address] [place] [id number] [address] [place] [address] Aug, History of DVT (deep vein th rombosis) Z86.718 ; Generalized anxiety disorder F41.1 ; 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 ; Pelvic pain R10.2 ; Hypertriglyceridemia E78.1 ; Excessive daytime sleepiness G47.19 ; Colon cancer screening Z12.11 ; Screening for breast cancer Z12.39 ; Peripheral edema R60.9 and Gastroesophageal reflux disease, esophagitis presence not specified K21.9 [place] [address] [place] [id number] [address] [place] [address] Aug, [place] [address] [address] July, [place] [address] [place] [id number] [place] [address] July, History of DVT (deep vein th rombosis) Z86.718 [place] [address] [place] [id number] [address] [place] [address] Jun, Generalized anxiety disorder F41.1 [place] [address] [place] [id number] [address] [place] [address] Jun, History of DVT (deep vein th rombosis) Z86.718 [place] [address] [place] [id number] [address] [place] [address] Jun, History of DVT (deep vein th rombosis) Z86.718 [place] [address] [place] [id number] [address] [place] [address] Jun, History of DVT (deep vein th rombosis) Z86.718 [place] [address] [place] [id number] [place] [address] Jun, History of DVT (deep vein th rombosis) Z86.718 [facility] [address] [id number] [address] [place] [address] May, History of DVT (deep vein th rombosis) Z86.718 [facility] [address] [id number] [address] [place] [address] May, 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 (current) use of a nticoagulants Z79.01 [facility] [address] [id number] [address] [place] [address] May, shelter (current) use of a nticoagulants Z79.01 [place] [address] [id number] [address] [place] [address] May, History of DVT (deep vein th rombosis) Z86.718 [facility] [address] [id number] [address] [place] [address] Apr, Bacterial conjunctivitis of left eye H10.9 and H/O motion sickness Z87.898 [place] [address] [id number] [address] [place] [address] 24 Apr, 2016 History of DVT (deep vein th rombosis) Z86.718 [facility] [address] [id number] [address] [place] [address] Apr, History of DVT (deep vein th rombosis) Z86.718 [facility] [address] [id number] [address] [place] [address] 15 Apr, 2016 History of DVT (deep vein th rombosis) Z86.718 [facility] [address] [id number] [address] [place] [address] 14 Apr, 2016 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 (current) use of a nticoagulants Z79.01 [place] [address] [id number] [address] [place] [address] Mar, [facility] [address] [id number] [address] [place] [address] Mar, shelter (current) use of a nticoagulants Z79.01 [facility] [address] [id number] [address] [place] [address] Mar, Hypertriglyceridemia E78.1 a nd 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 [facility] [address] [id number] [address] [place] [address] Feb, shelter (current) use of a nticoagulants Z79.01 [facility] [address] [id number] [address] [place] [address] Feb, shelter (current) use of a nticoagulants Z79.01 [facility] [address] [id number] [address] [place] [address] Feb, 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 (current) use of a nticoagulants Z79.01 [facility] [address] [id number] [address] [place] [address] Dec, [facility] [address] [id number] [address] [place] [address] Nov, [facility] [address] [id number] [address] [place] [address] Nov, History of DVT (deep vein th rombosis) Z86.718 ; Tremulousness R25.1 ; Generalized anxiety disorder F41.1 ; Peripheral edema R60.9 and Hypertriglyceridemia E78.1 [facility] [address] [id number] [address] [place] [address] Oct, History of DVT (deep vein th rombosis) Z86.718 [facility] [address] [id number] [address] [place] [address] Oct, [facility] [address] [id number] [address] [place] [address] Sep, History of DVT (deep vein th rombosis) Z86.718 [facility] [address] [id number] [address] [place] [address] Sep, 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 (current) use of a nticoagulants Z79.01 [facility] [address] [id number] [address] [place] [address] July, [facility] [address] [id number] [address] [place] [address] July, 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 (current) use of a nticoagulants Z79.01 [place] [address] [id number] [address] [place] [address] July, shelter (current) use of a nticoagulants Z79.01 [place] [address] [id number] [address] [place] [address] Jun, shelter (current) use of a nticoagulants Z79.01 [facility] [address] [id number] [address] [place] [address] Jun, Coccyx pain M53.3 ; Encounte r for therapeutic drug level monitoring Z51.81 and 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 current use 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.01 [place] [address] [id number] [address] [place] [address] May, Abnormal mammogram R92.8 [facility] [address] [id number] [address] [place] [address] May, [facility] [place] [id number] [id number] [address] [place] [id number] May, Acute vaginitis N76.0 and En counter for other screening for malignant neoplasm of breast Z12.39 [place] [address] [id number] [address] [place] [phone] Apr, [place] [address] [address] [facility] [id number] [address] [place] [id number] Apr, [place] [id number] [id number] [address] [place] [phone] Apr, Peripheral edema R60.9 [facility] [address] [id number] [address] [place] [phone] Apr, 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 (current) use of a nticoagulants Z79.01 [facility] [address] [id number] [address] [place] [id number] Apr, Peripheral edema R60.9 and L jose martin term (current) 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 Z79.01 [facility] [address] [id number] [address] [place] [id number] Apr, shelter (current) use of a nticoagulants Z79.01 [place] [id number] [id number] [address] [place] [phone] Apr, [facility] [address] [id number] [address] [place] [id number] Apr, 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 (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) use of a nticoagulants Z79.01 [facility] [address] [id number] [address] [place] [id number] Apr, Peripheral edema R60.9 [facility] [address] [id number] [address] [place] [id number] Mar, shelter (current) use of a nticoagulants Z79.01 [facility] [address] [id number] [address] [place] [address] Mar, shelter (current) use of a nticoagulants Z79.01 and Hypertriglyceridemia E78.1 [facility] [address] [id number] [address] [place] [address] Mar, shelter (current) use of a nticoagulants Z79.01 [facility] [address] [id number] [address] [place] [address] Mar, shelter (current) use of a nticoagulants Z79.01 [facility] [address] [id number] [address] [place] [address] Mar, [facility] [address] [id number] [address] [place] [address] Mar, shelter (current) use of a nticoagulants Z79.01 ; Hypertriglyceridemia E78.1 ; Personal history of venous thrombosis and embolism Z86.718 and Lump R22.9 [facility] [address] [id number] [address] [place] [address] Mar, Personal history of venous t hrombosis and embolism Z86.718 [facility] [address] [id number] [address] [place] [address] Mar, Personal history of venous t hrombosis and embolism Z86.718 [facility] [address] [id number] [address] [place] [address] Mar, [facility] [address] [id number] [address] [place] [address] Dec, Personal history of venous t hrombosis and embolism Z86.718 [facility] [address] [id number] [address] [place] [address] Dec, Personal history of venous t hrombosis and embolism V12.51 [facility] [address] [id number] [address] [place] [address] Nov, Personal history of venous t hrombosis and embolism V12.51 [facility] [address] [id number] [address] [place] [address] 25 Nov, 2014 Personal history of venous t hrombosis and embolism V12.51 [facility] [address] [id number] [address] [place] [address] 17 Nov, 2014 Personal history of venous t hrombosis and embolism V12.51 [facility] [address] [id number] [address] [place] [address] Nov, Personal history of venous t hrombosis and embolism V12.51 [facility] [address] [id number] [address] [place] [address] Nov, [facility] [address] [id number] [address] [place] [address] Oct, Dysuria 788.1 [facility] [address] [id number] [address] [place] [address] Oct, Personal history of venous t hrombosis and embolism V12.51 [facility] [address] [id number] [address] [place] [address] Oct, [facility] [address] [id number] [address] [place] [address] Oct, Personal history of venous t hrombosis and embolism V12.51 [facility] [address] [id number] [address] [place] [address] Sep, Personal history of venous t hrombosis and embolism V12.51 [facility] [address] [id number] [address] [place] [address] Sep, Personal history of venous t hrombosis and embolism V12.51 [facility] [address] [id number] [address] [place] [address] Aug, Personal history of venous t hrombosis and embolism V12.51 [facility] [address] [id number] [address] [place] [address] Aug, Personal history of venous t hrombosis and embolism V12.51 [facility] [address] [id number] [address] [place] [address] Aug, Personal history of venous t hrombosis and embolism V12.51 [facility] [address] [id number] [address] [place] [address] July, Generalized anxiety disorder 300.02 ; Abdominal pain, left lower quadrant 789.04 and Personal history of venous thrombosis and embolism V12.51 [facility] [place] [address] [id number] [address] [place] [address], [place] [address] 14 Jun, 2014 [facility] [address] [id number] [address] [place] [address], [place] [address] Jun, [facility] [address] [id number] [address] [place] [address], [place] [address] May, [facility] [address] [id number] [address] [place] [address], [place] [address] May, [facility] [address] [id number] [address] [place] [address], [place] [address] May, [facility] [address] [id number] [address] [place] [address], [place] [address] May, [facility] [address] [id number] [address] [place] [address], [place] [address] May, [facility] [address] [id number] [address] [place] [address] May, [facility] [address] [id number] [address] [place] [address], [place] [address] May, [facility] [address] [id number] [address] [place] [address] May, [facility] [address] [id number] [address] [place] [address], [place] [address] Apr, [facility] [address] [id number] [address] [place] [address] Apr, [facility] [address] [id number] [address] [place] [address], [place] [address] Apr, [facility] [address] [id number] [address] [place] [address], [place] [address] Apr, [facility] [address] [id number] [address] [place] [address], [place] [address] Apr, [facility] [address] [id number] [address] [place] [address], [place] [address] Mar, [facility] [place] [address] [id number] [address] [place] [address], [place] [address] Mar, [facility] [address] [id number] [address] [place] [address], [place] [address] Mar, [facility] [address] [id number] [address] [place] [address], [place] [address] Mar, [facility] [address] [id number] [address] [place] [address], [place] [address] Mar, [facility] [address] [id number] [address] [place] [address], [place] [address] Mar, [facility] [address] [id number] [address] [place] [address], [place] [address] Feb, [facility] [address] [id number] [address] [place] [address], [place] [address] Feb, [facility] [address] [id number] [address] [place] [address], [place] [address] Feb, [facility] [address] [id number] [address] [place] [address], [place] [address] Feb, [facility] [address] [id number] [address] [place] [address], [place] [address] Feb, [facility] [address] [id number] [address] [place] [address], [place] [address] Feb, [facility] [address] [id number] [address] [place] [address], [place] [address] Feb, [facility] [address] [id number] [address] [place] [address], [place] [address] Feb, [facility] [address] [id number] [address] [place] [address], [place] [address] Feb, [facility] [address] [id number] [address] [place] [address], [place] [address] Feb, [facility] [address] [id number] [address] [place] [address], [place] [address] Jan, [facility] [address] [id number] [address] [place] [address], [place] [address] Jan, [facility] [address] [id number] [address] [place] [address], [place] [address] Jan, [facility] [address] [id number] [address] [place] [address], [place] [address] Jan, [facility] [address] [id number] [address] [place] [address], [place] [address] Jan, [facility] [address] [id number] [address] [place] [address], [place] [address] Jan, [facility] [address] [id number] [address] [place] [address], [place] [address] Jan, [facility] [address] [id number] [address] [place] [address], [place] [address] Jan, [facility] [address] [id number] [address] [place] [address], [place] [address] Jan, [facility] [address] [id number] [address] [place] [address], [place] [address] Jan, [facility] [address] [id number] [address] [place] [address], [place] [address] Dec, [facility] [address] [id number] [address] [place] [address], [place] [address] Dec, [facility] [address] [id number] [address] [place] [address], [place] [address] Dec, [facility] [address] [id number] [address] [place] [address], [place] [address] Dec, [facility] [address] [id number] [address] [place] [address], [place] [address] Dec, [facility] [address] [id number] [address] [place] [address], [place] [address] Dec, [facility] [address] [id number] [address] [place] [address], [place] [address] Dec, [facility] [address] [id number] [address] [place] [address], [place] [address] Dec, [facility] [address] [id number] [address] [place] [address], [place] [address] Dec, [facility] [address] [id number] [address] [place] [address], [place] [address] Dec, [facility] [address] [id number] [address] [place] [address], [place] [address] Dec, [facility] [address] [id number] [address] [place] [address], [place] [address] Dec, [facility] [address] [id number] [address] [place] [address], [place] [address] Dec, [facility] [address] [id number] [address] [place] [address], [place] [address] Dec, [facility] [address] [id number] [address] [place] [address], [place] [address] Dec, [facility] [address] [id number] [address] [place] [address], [place] [address] 30 Nov, 2013 [facility] [address] [id number] [address] [place] [address], [place] [address] 30 Nov, 2013 [facility] [address] [id number] [address] [place] [address], [place] [address] 26 Nov, 2013 [facility] [address] [id number] [address] [place] [address], [place] [address] 26 Nov, 2013 [facility] [address] [id number] [address] [place] [address], [place] [address] 24 Nov, 2013 [facility] [address] [id number] [address] [place] [address], [place] [address] 24 Nov, 2013 [facility] [address] [id number] [facility] [place] [address] 23 Sep, 2013 [facility] [address] [id number] [facility] [place] [address] 23 Sep, 2013 [facility] [address] [id number] [facility] [place] [address] 18 Nov, 2013 [facility] [address] [id number] [address] [place] [address], [place] [address] 18 Nov, 2013 [facility] [address] [id number] [facility] [place] [address] 17 Nov, 2013 [facility] [address] [id number] [address] [place] [address], [place] [address] 17 Nov, 2013 [facility] [address] [id number] [address] [place] [address], [place] [address] 11 Nov, 2013 [facility] [address] [id number] [address] [place] [address], [place] [address] 11 Nov, 2013 [facility] [address] [id number] [address] [place] [address], [place] [address] 10 Nov, 2013 [facility] [address] [id number] [address] [place] [address], [place] [address] 10 Nov, 2013 [facility] [address] [id number] [address] [place] [address], [place] [address] 08 Nov, 2013 [facility] [address] [id number] [address] [place] [address], [place] [address] 08 Nov, 2013 [facility] [address] [id number] [address] [place] [address], [place] [address] 22 Sep, 2013 [facility] [address] [id number] [address] [place] [address], [place] [address] Sep, 2013 [facility] [address] [id number] [address] [place] [address], [place] [address] Sep, 2013 [facility] [address] [id number] [address] [place] [address], [place] [address] Sep, [facility] [address] [id number] [facility] [place] [address] Sep, [facility] [address] [id number] [facility] [place] [address] Sep, [facility] [address] [id number] [facility] [place] [address] Aug, [facility] [address] [id number] [address] [place] [address], [place] [address] Aug, [facility] [address] [id number] [address] [place] [address], [place] [address] Aug, [facility] [address] [id number] [address] [place] [address], [place] [address] Aug, [facility] [address] [id number] [address] [place] [address], [place] [address] Aug, [facility] [address] [id number] [address] [place] [address], [place] [address] Aug, [facility] [address] [id number] [address] [place] [address], [place] [address] Aug, [facility] [address] [id number] [address] [place] [address], [place] [address] Aug, [facility] [address] [id number] [address] [place] [address], [place] [address] Aug, [facility] [address] [id number] [address] [place] [address], [place] [address] Aug, [facility] [address] [id number] [address] [place] [address], [place] [address] Aug, [facility] [address] [id number] [address] [place] [address], [place] [address] July, [facility] [address] [id number] [address] [place] [address], [place] [address] July, [facility] [address] [id number] [address] [place] [address], [place] [address] Jun, [facility] [address] [id number] [address] [place] [address], [place] [address] Jun, [facility] [address] [id number] [address] [place] [address], [place] [address] 18 Jun, 2013 [facility] [address] [id number] [address] [place] [address], [place] [address] Jun, [facility] [address] [id number] [address] [place] [address], [place] [address] Jun, [facility] [address] [id number] [address] [place] [address], [place] [address] Jun, [facility] [address] [id number] [address] [place] [address], [place] [address] Jun, [facility] [address] [id number] [address] [place] [address], [place] [address] Jun, [facility] [address] [id number] [address] [place] [address], [place] [address] Jun, [facility] [address] [id number] [address] [place] [address], [place] [address] Jun, [facility] [address] [id number] [address] [place] [address], [place] [address] Jun, [facility] [address] [id number] [address] [place] [address], [place] [address] Jun, [facility] [address] [id number] [address] [place] [address], [place] [address] May, [facility] [address] [id number] [address] [place] [address], [place] [address] May, [facility] [address] [id number] [address] [place] [address], [place] [address] May, [facility] [address] [id number] [address] [place] [address], [place] [address] May, [facility] [address] [id number] [facility] [place] [address] May, [facility] [address] [id number] [address] [place] [address], [place] [address] May, [facility] [address] [id number] [address] [place] [address], [place] [address] May, [facility] [address] [id number] [address] [place] [address], [place] [address] May, [facility] [address] [id number] [address] [place] [address], [place] [address] May, [facility] [address] [id number] [address] [place] [address], [place] [address] May, [facility] [address] [id number] [address] [place] [address], [place] [address] May, [facility] [address] [id number] [address] [place] [address], [place] [address] May, [facility] [address] [id number] [address] [place] [address], [place] [address] Apr, [facility] [address] [id number] [address] [place] [address], [place] [address] Apr, [facility] [address] [id number] [address] [place] [address], [place] [address] Apr, [facility] [address] [id number] [address] [place] [address], [place] [address] Apr, [facility] [address] [id number] [address] [place] [address], [place] [address] Apr, [facility] [address] [id number] [address] [place] [address], [place] [address] Apr, [facility] [address] [id number] [address] [place] [address], [place] [address] Apr, [facility] [address] [id number] [address] [place] [address] Apr, [facility] [address] [id number] [address] [place] [address], [place] [address] Apr, [facility] [address] [id number] [address] [place] [address], [place] [address] Apr, 2013 [facility] [address] [id number] [address] [place] [address], [place] [address] Apr, 2013 [facility] [address] [id number] [address] [place] [address], [place] [address] Apr, [facility] [address] [id number] [address] [place] [address], [place] [address] Apr, [facility] [address] [id number] [address] [place] [address], [place] [address] Apr, [facility] [address] [id number] [address] [place] [address], [place] [address] Apr, [facility] [address] [id number] [address] [place] [address], [place] [address] Apr, [facility] [address] [id number] [address] [place] [address], [place] [address] Apr, [facility] [address] [id number] [address] [place] [address], [place] [address] Jan, [facility] [address] [id number] [address] [place] [address], [place] [address] 13 Jan, 2013 [facility] [address] [id number] [address] [place] [address], [place] [address] 08 Jan, 2013 [facility] [address] [id number] [address] [place] [address], [place] [address] Jan, [facility] [address] [id number] [address] [place] [address], [place] [address] Jan, [facility] [address] [id number] [address] [place] [address], [place] [address] Jan, [facility] [address] [id number] [address] [place] [address], [place] [address] Jan, [facility] [address] [id number] [address] [place] [address], [place] [address] Dec, [facility] [address] [id number] [address] [place] [address], [place] [address] Dec, [facility] [address] [id number] [address] [place] [address], [place] [address] Dec, [facility] [address] [id number] [address] [place] [address], [place] [address] Nov, [facility] [address] [id number] [address] [place] [address], [place] [address] Nov, [facility] [address] [id number] [address] [place] [address], [place] [address] Nov, [facility] [address] [id number] [address] [place] [address], [place] [address] Nov, [facility] [address] [id number] [address] [place] [address], [place] [address] Oct, [facility] [address] [id number] [address] [place] [address], [place] [address] Oct, [facility] [address] [id number] [address] [place] [address], [place] [address] Oct, [facility] [address] [id number] [address] [place] [address], [place] [address] Oct, [facility] [address] [id number] [address] [place] [address], [place] [address] Oct, [facility] [address] [id number] [address] [place] [address], [place] [address] Sep, [facility] [address] [id number] [address] [place] [address], [place] [address] Sep, [facility] [address] [id number] [address] [place] [address], [place] [address] Sep, [facility] [place] [address] [id number] [address] [place] [address], [place] [address] Sep, [facility] [address] [id number] [address] [place] [address], [place] [address] Sep, [facility] [address] [id number] [address] [place] [address], [place] [address] Sep, [facility] [address] [id number] [address] [place] [address], [place] [address] Sep, [facility] [address] [id number] [address] [place] [address], [place] [address] Aug, [facility] [address] [id number] [address] [place] [address], [place] [address] Aug, [facility] [place] [address] [id number] [address] [place] [address], [place] [address] July, [facility] [place] [address] [id number] [address] [place] [address], [place] [address] Jun, [facility] [address] [id number] [address] [place] [address], [place] [address] Jun, [facility] [address] [id number] [address] [place] [address], [place] [address] Jun, [facility] [address] [id number] [address] [place] [address], [place] [address] Apr, [facility] [address] [id number] [address] [place] [address], [place] [address] Apr, [facility] [address] [id number] [address] [place] [address], [place] [address] Apr, [facility] [address] [id number] [address] [place] [address], [place] [address] Mar, [facility] [address] [id number] [address] [place] [address], [place] [address] Mar, [facility] [address] [id number] [address] [place] [address], [place] [address] 2012 [facility] [address] [id number] [address] [place] [address], [place] [address] Mar, [facility] [address] [id number] [address] [place] [address], [place] [address] Mar, [facility] [address] [id number] [address] [place] [address], [place] [address] 14 Feb, 2012 [facility] [address] [id number] [address] [place] [address], [place] [address] 14 Feb, 2012 [facility] [address] [id number] [address] [place] [address], [place] [address] Jan, [facility] [address] [id number] [address] [place] [address], [place] [address] Jan, [facility] [place] [facility] [address] [id number] [address] [place] [address], [place] [address] Jan, [facility] [place] [address] [id number] [address] [place] [address], [place] [address] Jan, [facility] [place] [address] [id number] [address] [place] [address], [place] [address] Jan, [facility] [address] [id number] [address] [place] [address], [place] [address] Jan, [facility] [address] [id number] [address] [place] [address], [place] [address] Jan, [facility] [address] [id number] [address] [place] [address], [place] [address] Dec, [facility] [address] [id number] [address] [place] [address], [place] [address] Dec, [facility] [address] [id number] [address] [place] [address], [place] [address] 30 Dec, 2011 [facility] [address] [id number] [address] [place] [address], [place] [address] Dec, [facility] [address] [id number] [address] [place] [address], [place] [address] Dec, [facility] [address] [id number] [address] [place] [address], [place] [address] Dec, [facility] [address] [id number] [address] [place] [address], [place] [address] Dec, [facility] [address] [id number] [address] [place] [address], [place] [address] Dec, [facility] [address] [id number] [address] [place] [address], [place] [address] Dec, [facility] [address] [id number] [address] [place] [address], [place] [address] Dec, [facility] [address] [id number] [address] [place] [address], [place] [address] Oct, [facility] [address] [id number] [address] [place] [address], [place] [address] Oct, [facility] [address] [id number] [address] [place] [address], [place] [address] Aug, [facility] [address] [id number] [address] [place] [address], [place] [address] Aug, [facility] [address] [id number] [address] [place] [address], [place] [address] July, [facility] [address] [id number] [address] [place] [address], [place] [address] Jun, [facility] [address] [id number] [address] [place] [address], [place] [address] Jun, [facility] [address] [id number] [address] [place] [address], [place] [address] May, [facility] [address] [id number] [address] [place] [address], [place] [address] Apr, [facility] [address] [id number] [address] [place] [address], [place] [address] 16 Apr, 2011 [facility] [address] [id number] [address] [place] [address], [place] [address] 19 Mar, 2011 [facility] [address] [id number] [address] [place] [address], [place] [address] 16 Mar, 2011 [facility] [address] [id number] [address] [place] [address], [place] [address] 19 Feb, 2011 [facility] [address] [id number] [address] [place] [address], [place] [address] 15 Feb, 2011 [facility] [address] [id number] [address] [place] [address], [place] [address] 13 Feb, 2011 [facility] [address] [id number] [address] [place] [address], [place] [address] 13 Feb, 2011 [facility] [address] [id number] [address] [place] [address], [place] [address] Jan, [facility] [address] [id number] [address] [place] [address], [place] [address] 17 Dec, 2010 [facility] [address] [id number] [address] [place] [address], [place] [address] 08 Feb, 2010 [facility] [address] [id number] [address] [place] [address], [place] [address] 02 Feb, 2010 [facility] [address] [id number] [address] [place] [address], [place] [address] Feb, [facility] [address] [id number] [address] [place] [address], [place] [address] Feb, [facility] [address] [id number] [address] [place] [address], [place] [address] 15 Dec, 2009 [facility] [address] [id number] [address] [place] [address], [place] [address] 15 Dec, 2009 [facility] [address] [id number] [address] [place] [address], [place] [address] Oct, [facility] [address] [id number] [address] [place] [address] Jun, [facility] [address] [id number] [address] [place] [address] Feb, [facility] [address] [id number] [address] [place] [address] Feb, [facility] [address] [id number] [address] [place] [address] Feb, [facility] [address] [id number] [address] [place] [address] Dec, IMMUNIZATIONS No Known Immunizations SOCIAL HISTORY Never Assessed REASON FOR VISIT PLAN OF CARE VITAL SIGNS MEDICATIONS Unknown Medications RESULTS No Results PROCEDURES No Known procedures INSTRUCTIONS MEDICATIONS ADMINISTERED No Known Medications MEDICAL (GENERAL) HISTORY Type Description Date Medical History obesity Medical History Hematologic disorder factor clotting pro blem Medical History DVT's Medical History Torn Rotator Cuff, repaired 09/23/17 Surgical History Lap Band 10/2012 Surgical History section 1985, 1987 Surgical History cholecystectomy Surgical History Roslyn Filter 06/2009 Surgical History Left leg exploratory surgery r/t clot Surgical History left shoulder surgery 09/14/17 Surgical History lap band removed 12/2017 Surgical History gastic sleeve 01/2018 Surgical History Back surgery 2019 Surgical History Partial Thyroidectomy - left side 2019 Hospitalization History Ruptured Ovarian Cyst with abd bleed ing 11/2009 Hospitalization History Broken Back 06/2018
--- OUTSIDE RECORDS SUMMARY | 2019-10-19 12:18 | XMS REPORT ---
Author Author Mary Jane Mcginnis Doctor Organization [facility] Address Unknown Phone Unavailable Care Team Providers Care Traffic Control Technician Name Role Phone Migration, Doctor Unavailable Unavailable PROBLEMS Type Condition ICD9-CM Code CII54-XQ Code Onset Dates Condition S tatus SNOMED Code Problem Thyroid follicular adenoma D34 Act phylicia 126501275 Problem History of DVT (deep vein thrombosis) Z86.718 Active 558939581 Problem Factor V Leiden D68.51 Active 3070 84003 Problem penitentiary (current) use of anticoagulants Z79.01 Active 917846477 Problem Hypertriglyceridemia E78.1 Active 025986278 Problem Presence of IVC filter Z95.828 Active 021031858 Problem 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 Active 951421853 Problem Peripheral edema R60.9 Active 271 078135 Problem Excessive daytime sleepiness G47.19 A ctive 307665995382 Problem Gastroesophageal reflux disease, esophagitis pre sence not specified K21.9 Active 855196177 Problem Chronic pain due to trauma G89.21 Act phylicia 079354465 Problem Pelvic pain R10.2 Active 45214386 Problem Subclinical hypothyroidism E03.9 Act phylicia 06001624 Problem Generalized anxiety disorder F41.1 A ctive 670848172 Problem Thyroid nodule E04.1 Active 74705 5005 Problem Morbid obesity E66.01 Active 38951 6002 Problem Moderate episode of recurrent major depressive disorder F33.1 Active 825401832 Problem Vitamin D deficiency E55.9 Active 32290455 ALLERGIES No Information ENCOUNTERS Encounter Location Date Diagnosis [facility] [address] [facility] [id number] [address] [place] [phone] 10 Sep, 2019 Anemia D64.9 [facility] [address] [facility] [id number] [address] [place] [phone] Sep, Subclinical hypothyroidism E 03.9 and Anemia D64.9 [facility] [address] [facility] [id number] [address] [place] [phone] Sep, Chronic pain due to trauma G 89.21 [facility] [address] [facility] [id number] [address] [place] [phone] Aug, [facility] [address] [facility] [id number] [address] [place] [phone] Aug, Morbid obesity E66.01 [facility] [address] [facility] [id number] [address] [place] [phone] Aug, Subclinical hypothyroidism E 03.9 [place] [address] [facility] [id number] [address] [place] [phone] 05 Aug, 2019 Subclinical hypothyroidism E 03.9 and Anemia D64.9 [place] [address] [facility] [id number] [address] [place] [phone] Aug, [place] [address] [phone] Aug, [place] [id number] [place] [phone] July, [place] [id number] [place] [phone] July, Subclinical hypothyroidism E 03.9 and Anemia D64.9 [place] [address] [facility] [id number] [address] [place] [id number] July, Thyroid nodule E04.1 ; Hyper triglyceridemia E78.1 ; Excessive daytime sleepiness G47.19 and Vitamin D deficiency E55.9 [place] [address] [facility] [id number] [address] [place] [phone] July, Hypertriglyceridemia E78.1 ; Excessive daytime sleepiness G47.19 ; Vitamin D deficiency E55.9 ; Morbid obesity E66.01 ; Peripheral edema R60.9 ; Generalized anxiety disorder F41.1 and Chronic pain due to trauma G89.21 [facility] [address] [facility] [id number] [address] [place] [phone] Jun, [facility] [address] [id number] [address] [place] [phone] 15 Jun, 2019 Back pain with history of sp inal surgery M54.9 [place] [address] [id number] [address] [place] [phone] 12 Apr, 2019 Back pain with history of sp inal surgery M54.9 [place] [address] [id number] [address] [place] [phone] 11 Apr, 2019 [place] [address] [id number] [address] [place] [phone] 10 Apr, 2019 Gastroenteritis K52.9 ; Back pain with history of spinal surgery M54.9 ; Dermatofibroma of lower leg, unspecified laterality D23.70 and Morbid obesity E66.01 [place] [address] [id number] [address] [place] [phone] Mar, [place] [address] [facility] [id number] [address] [place] [phone] Jan, [place] [address] [id number] [address] [place] [phone] Jan, [place] [address] [facility] [id number] [address] [place] [phone] Dec, Encounter for weight managem ent Z76.89 [place] [address] [facility] [id number] [address] [place] [phone] Dec, Encounter for weight managem ent Z76.89 and Screening mammogram, encounter for Z12.31 [place] [address] [id number] [address] [place] [phone] Nov, Encounter for weight managem ent Z76.89 [place] [address] [facility] [id number] [address] [place] [phone] Nov, Thyroid nodule E04.1 [place] [address] [id number] [address] [place] [phone] 11 Nov, 2018 Thyroid nodule E04.1 [place] [address] [facility] [id number] [address] [place] [phone] Nov, Thyroid nodule E04.1 [facility] [address] [facility] [id number] [address] [place] [phone] Oct, Syncope, unspecified syncope type R55 and Encounter for weight management Z76.89 [facility] [address] [facility] [id number] [address] [place] [phone] Oct, Morbid obesity E66.01 [facility] [address] [facility] [id number] [address] [place] [phone] Oct, Hypertriglyceridemia E78.1 [place] [address] [facility] [id number] [address] [place] [phone] Oct, [facility] [address] [facility] [id number] [address] [place] [phone] Oct, Hypertriglyceridemia E78.1 [facility] [address] [facility] [id number] [address] [place] [phone] Sep, Hypertriglyceridemia E78.1 a nd Vitamin D deficiency E55.9 [facility] [address] [facility] [id number] [address] [place] [phone] Sep, [facility] [address] [facility] [id number] [address] [place] [phone] Sep, Morbid obesity E66.01 ; Mode rate episode of recurrent major depressive disorder F33.1 ; Hypertriglyceridemia E78.1 and Vitamin D deficiency E55.9 [facility] [address] [facility] [id number] [address] [place] [phone] Aug, [facility] [address] [facility] [id number] [address] [place] [phone] July, [facility] [address] [facility] [id number] [address] [place] [phone] July, [facility] [address] [facility] [id number] [address] [place] [phone] Jun, [facility] [address] [facility] [id number] [address] [place] [phone] Jun, [facility] [address] [place] [id number] [place] [phone] Jun, Closed compression fracture of L3 lumbar vertebra with routine healing, subsequent encounter S32.030D and Drug-induced constipation K59.03 [facility] [address] [facility] [id number] [address] [place] [phone] Jun, [facility] [address] [facility] [id number] [place] [phone] Jun, [facility] [address] [place] [id number] [place] [phone] Apr, [facility] [address] [place] [id number] [place] [phone] Apr, Morbid obesity E66.01 [facility] [address] [place] [id number] [place] [phone] Apr, Morbid obesity E66.01 ; Hype rtriglyceridemia E78.1 ; Gastroesophageal reflux disease, esophagitis presence not specified K21.9 and Joint pain M25.50 [facility] [address] [place] [id number] [address] [place] [phone] Feb, [facility] [address] [place] [id number] [address] [place] [phone] Feb, [facility] [address] [facility] [id number] [address] [place] [phone] Jan, Acute bacterial conjunctivit is H10.30 [facility] [address] [facility] [id number] [address] [place] [phone] Dec, [facility] [address] [place] [id number] [place] [phone] Dec, [facility] [address] [place] [id number] [address] [place] [phone] Nov, [facility] [address] [facility] [id number] [address] [place] [phone] 07 Nov, 2017 Obstructive sleep apnea G47. 33 ; Morbid obesity E66.01 and Gastroesophageal reflux disease, esophagitis presence not specified K21.9 [facility] [address] [id number] [address] [place] [id number] 06 Nov, 2017 Encounter for examination of eyes and vision without abnormal findings Z01.00 [facility] [address] [facility] [id number] [address] [place] [phone] 31 Oct, 2017 Thyroid nodule E04.1 and Scr eening for breast cancer Z12.31 [place] [address] [facility] [id number] [address] [place] [phone] 23 Oct, 2017 History of DVT (deep vein th rombosis) Z86.718 ; Thyroid nodule E04.1 and Gastroesophageal reflux disease, esophagitis presence not specified K21.9 [facility] [address] [facility] [id number] [address] [place] [phone] 10 Oct, 2017 [facility] [address] [facility] [id number] [address] [place] [phone] Sep, [facility] [address] [facility] [id number] [address] [place] [phone] Aug, [place] [address] [place] [id number] [address] [place] [phone] Aug, [facility] [address] [place] [id number] [address] [place] [phone] Aug, Acute pain of left shoulder M25.512 and Thyroid nodule E04.1 [facility] [address] [facility] [id number] [address] [place] [phone] July, Superior glenoid labrum lesi on of left shoulder, subsequent encounter S43.432D [facility] [address] [facility] [id number] [address] [place] [phone] Jun, History of DVT (deep vein th rombosis) Z86.718 [facility] [address] [facility] [id number] [address] [place] [phone] Jun, History of DVT (deep vein th rombosis) Z86.718 [place] [address] [facility] [id number] [address] [place] [phone] Jun, Impingement syndrome, should er, left M75.42 [place] [address] [place] [id number] [address] [place] [phone] May, Subacromial bursitis of left shoulder joint M75.52 [place] [address] [place] [id number] [address] [place] [phone] May, [place] [address] [place] [id number] [place] [phone] May, Hypertriglyceridemia E78.1 ; penitentiary (current) use of anticoagulants Z79.01 and Excessive daytime sleepiness G47.19 [place] [address] [place] [id number] [address] [place] [phone] May, History of DVT (deep vein th rombosis) Z86.718 ; Generalized anxiety disorder F41.1 ; Hypertriglyceridemia E78.1 ; 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 ; Subacromial bursitis of left shoulder joint M75.52 and Excessive daytime sleepiness G47.19 [place] [address] [place] [id number] [address] [place] [phone] May, [place] [address] [facility] [id number] [address] [place] [phone] May, penitentiary (current) use of a nticoagulants Z79.01 [place] [address] [facility] [id number] [address] [place] [phone] Apr, 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 (current) use of a nticoagulants Z79.01 [place] [address] [facility] [id number] [address] [place] [phone] Apr, penitentiary (current) use of a nticoagulants Z79.01 [facility] [address] [id number] [address] [place] [phone] Apr, penitentiary (current) use of a nticoagulants Z79.01 [facility] [address] [id number] [address] [place] [phone] Apr, [facility] [address] [id number] [address] [place] [phone] Apr, 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 (current) use of a nticoagulants Z79.01 [facility] [address] [id number] [address] [place] [phone] 13 Apr, 2017 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 (current) use of a nticoagulants Z79.01 [facility] [address] [id number] [address] [place] [phone] Apr, 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 (current) use of a nticoagulants Z79.01 [facility] [address] [id number] [address] [place] [phone] Apr, 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 (current) use of a nticoagulants Z79.01 [facility] [address] [id number] [address] [place] [phone] Apr, penitentiary (current) use of a nticoagulants Z79.01 [facility] [address] [id number] [address] [place] [phone] Apr, penitentiary (current) use of a nticoagulants Z79.01 [facility] [address] [id number] [address] [place] [phone] Mar, 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 (current) use of a nticoagulants Z79.01 [facility] [address] [id number] [address] [place] [phone] Mar, [facility] [address] [id number] [address] [place] [phone] Mar, penitentiary (current) use of a nticoagulants Z79.01 [facility] [address] [id number] [address] [id number] Jan, Dental examination Z01.20 [facility] [address] [id number] [address] [place] [id number] Jan, [facility] [address] [id number] [address] [place] [phone] Jan, 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 (current) use of a nticoagulants Z79.01 [facility] [address] [id number] [address] [place] [phone] Jan, History of DVT (deep vein th rombosis) Z86.718 [facility] [address] [id number] [address] [place] [phone] Jan, Generalized anxiety disorder F41.1 and Peripheral edema R60.9 [facility] [address] [id number] [address] [place] [phone] Nov, History of DVT (deep vein th rombosis) Z86.718 [facility] [address] [id number] [address] [place] [phone] Nov, penitentiary (current) use of a nticoagulants Z79.01 [facility] [address] [id number] [address] [place] [phone] Nov, Acute non-recurrent maxillar y sinusitis J01.00 [facility] [address] [id number] [address] [place] [phone] Oct, 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 (current) use of a nticoagulants Z79.01 [facility] [address] [id number] [address] [place] [phone] Oct, Personal history of venous t hrombosis and embolism Z86.718 [facility] [address] [id number] [address] [place] [phone] Sep, [facility] [address] [id number] [address] [place] [phone] Sep, Personal history of venous t hrombosis and embolism Z86.718 [place] [address] [facility] [id number] [address] [place] [phone] Sep, 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 (current) use of a nticoagulants Z79.01 [place] [address] [facility] [id number] [address] [place] [phone] Sep, 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 (current) use of a nticoagulants Z79.01 [place] [address] [facility] [id number] [address] [place] [phone] Sep, Generalized anxiety disorder F41.1 and History of DVT (deep vein thrombosis) Z86.718 [place] [address] [facility] [id number] [address] [place] [address] Aug, History of DVT (deep vein th rombosis) Z86.718 ; Generalized anxiety disorder F41.1 ; penitentiary (current) use of anticoagulants Z79.01 ; Pelvic pain R10.2 ; Hypertriglyceridemia E78.1 ; Excessive daytime sleepiness G47.19 ; Colon cancer screening Z12.11 ; Screening for breast cancer Z12.39 ; Peripheral edema R60.9 and Gastroesophageal reflux disease, esophagitis presence not specified K21.9 [place] [address] [facility] [id number] [address] [place] [phone] Aug, [place] [address] [facility] [id number] [address] [place] [phone] July, [place] [address] [facility] [id number] [address] [place] [phone] July, History of DVT (deep vein th rombosis) Z86.718 [place] [address] [facility] [id number] [address] [place] [phone] Jun, Generalized anxiety disorder F41.1 [place] [address] [facility] [id number] [address] [place] [phone] Jun, History of DVT (deep vein th rombosis) Z86.718 [facility] [address] [facility] [id number] [address] [place] [phone] Jun, History of DVT (deep vein th rombosis) Z86.718 [facility] [address] [facility] [id number] [address] [place] [phone] Jun, History of DVT (deep vein th rombosis) Z86.718 [facility] [address] [facility] [id number] [address] [place] [phone] Jun, History of DVT (deep vein th rombosis) Z86.718 [place] [address] [facility] [id number] [address] [place] [phone] May, History of DVT (deep vein th rombosis) Z86.718 [place] [address] [place] [id number] [address] [place] [phone] May, penitentiary (current) use of a nticoagulants Z79.01 [facility] [address] [facility] [id number] [address] [place] [phone] May, penitentiary (current) use of a nticoagulants Z79.01 [place] [address] [facility] [id number] [address] [place] [phone] May, History of DVT (deep vein th rombosis) Z86.718 [facility] [address] [facility] [id number] [address] [place] [phone] Apr, Bacterial conjunctivitis of left eye H10.9 and H/O motion sickness Z87.898 [facility] [address] [facility] [id number] [address] [place] [phone] Apr, History of DVT (deep vein th rombosis) Z86.718 [facility] [address] [facility] [id number] [address] [place] [phone] Apr, History of DVT (deep vein th rombosis) Z86.718 [facility] [address] [id number] [address] [place] [phone] 15 Apr, 2016 History of DVT (deep vein th rombosis) Z86.718 [place] [address] [facility] [id number] [address] [place] [phone] 14 Apr, 2016 penitentiary (current) use of a nticoagulants Z79.01 [place] [address] [facility] [id number] [address] [place] [phone] Mar, [place] [address] [facility] [id number] [address] [place] [phone] Mar, 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 (current) use of a nticoagulants Z79.01 [place] [address] [address] [facility] [id number] [address] [place] [id number] Mar, Hypertriglyceridemia E78.1 a nd 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 [place] [address] [id number] [address] [place] [id number] Feb, 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 (current) use of a nticoagulants Z79.01 [place] [address] [address] [facility] [id number] [address] [place] [id number] Feb, penitentiary (current) use of a nticoagulants Z79.01 [place] [address] [address] [facility] [id number] [address] [place] [id number] Feb, penitentiary (current) use of a nticoagulants Z79.01 [place] [id number] [id number] [address] [place] [id number] Dec, [place] [address] [id number] [address] [place] [id number] Nov, [place] [address] [address] [facility] [id number] [address] [place] [id number] 13 Nov, 2015 History of DVT (deep vein th rombosis) Z86.718 ; Tremulousness R25.1 ; Generalized anxiety disorder F41.1 ; Peripheral edema R60.9 and Hypertriglyceridemia E78.1 [facility] [address] [id number] [address] [place] [id number] Oct, History of DVT (deep vein th rombosis) Z86.718 [facility] [address] [id number] [address] [place] [id number] Oct, [facility] [address] [id number] [address] [place] [phone] Sep, History of DVT (deep vein th rombosis) Z86.718 [place] [address] [id number] [address] [place] [id number] Sep, 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 (current) use of a nticoagulants Z79.01 [place] [address] [id number] [address] [place] [id number] July, [place] [address] [id number] [address] [place] [id number] July, 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 (current) use of a nticoagulants Z79.01 [place] [address] [id number] [address] [place] [address] July, penitentiary (current) use of a nticoagulants Z79.01 [place] [id number] [id number] [address] [place] [phone] Jun, 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 (current) use of a nticoagulants Z79.01 [facility] [address] [facility] [id number] [address] [place] [address] Jun, Coccyx pain M53.3 ; Encounte r for therapeutic drug level monitoring Z51.81 and 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 current use 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.01 [facility] [address] [id number] [address] [place] [id number] May, Abnormal mammogram R92.8 [facility] [address] [facility] [id number] [address] [place] [id number] May, [facility] [address] [id number] [address] [place] [phone] May, Acute vaginitis N76.0 and En counter for other screening for malignant neoplasm of breast Z12.39 [facility] [address] [id number] [address] [place] [phone] Apr, [facility] [address] [facility] [id number] [address] [place] [phone] Apr, [facility] [address] [facility] [id number] [address] [place] [address] Apr, Peripheral edema R60.9 [facility] [address] [facility] [id number] [address] [place] [id number] Apr, penitentiary (current) use of a nticoagulants Z79.01 [place] [address] [facility] [id number] [address] [place] [id number] Apr, Peripheral edema R60.9 and L jose martin term (current) 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 Z79.01 [facility] [address] [id number] [address] [place] [id number] Apr, penitentiary (current) use of a nticoagulants Z79.01 [facility] [address] [facility] [id number] [address] [place] [id number] Apr, [facility] [address] [id number] [address] [place] [id number] Apr, 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 (current) use of a nticoagulants Z79.01 [facility] [address] [id number] [address] [place] [id number] Apr, Peripheral edema R60.9 [facility] [address] [facility] [id number] [address] [place] [id number] Mar, 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 (current) use of a nticoagulants Z79.01 [facility] [address] [id number] [address] [place] [id number] Mar, penitentiary (current) use of a nticoagulants Z79.01 and Hypertriglyceridemia E78.1 [place] [address] [id number] [address] [place] [id number] Mar, 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 (current) use of a nticoagulants Z79.01 [place] [address] [id number] [address] [place] [phone] Mar, 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 (current) use of a nticoagulants Z79.01 [place] [address] [id number] [address] [place] [phone] Mar, [place] [address] [id number] [address] [place] [address] Mar, penitentiary (current) use of a nticoagulants Z79.01 ; Hypertriglyceridemia E78.1 ; Personal history of venous thrombosis and embolism Z86.718 and Lump R22.9 [place] [address] [id number] [address] [place] [phone] Mar, Personal history of venous t hrombosis and embolism Z86.718 [place] [address] [id number] [address] [place] [id number] Mar, Personal history of venous t hrombosis and embolism Z86.718 [place] [address] [id number] [address] [place] [id number] Mar, [place] [address] [id number] [address] [place] [id number] Dec, Personal history of venous t hrombosis and embolism Z86.718 [place] [address] [id number] [address] [place] [id number] Dec, Personal history of venous t hrombosis and embolism V12.51 [place] [address] [id number] [address] [place] [id number] Nov, Personal history of venous t hrombosis and embolism V12.51 [facility] [address] [id number] [address] [place] [phone] Nov, Personal history of venous t hrombosis and embolism V12.51 [facility] [address] [id number] [address] [place] [phone] Nov, Personal history of venous t hrombosis and embolism V12.51 [facility] [address] [id number] [address] [place] [id number] Nov, Personal history of venous t hrombosis and embolism V12.51 [facility] [address] [id number] [address] [place] [phone] Nov, [facility] [address] [id number] [address] [place] [phone] Oct, Dysuria 788.1 [facility] [address] [id number] [address] [place] [id number] Oct, Personal history of venous t hrombosis and embolism V12.51 [facility] [address] [id number] [address] [place] [id number] Oct, [facility] [address] [id number] [address] [place] [id number] Oct, Personal history of venous t hrombosis and embolism V12.51 [facility] [address] [id number] [address] [place] [id number] Sep, Personal history of venous t hrombosis and embolism V12.51 [facility] [address] [id number] [address] [place] [id number] Sep, Personal history of venous t hrombosis and embolism V12.51 [facility] [address] [id number] [address] [place] [id number] Aug, Personal history of venous t hrombosis and embolism V12.51 [facility] [address] [id number] [address] [place] [id number] Aug, Personal history of venous t hrombosis and embolism V12.51 [facility] [address] [id number] [address] [place] [id number] 15 Aug, 2014 Personal history of venous t hrombosis and embolism V12.51 [facility] [address] [id number] [address] [place] [id number] July, Generalized anxiety disorder 300.02 ; Abdominal pain, left lower quadrant 789.04 and Personal history of venous thrombosis and embolism V12.51 [facility] [address] [id number] [address] [place] [id number] 14 Jun, 2014 [facility] [address] [id number] [address] [place] [id number] Jun, [facility] [address] [id number] [address] [place] [id number] May, [facility] [address] [id number] [address] [place] [phone] May, [facility] [address] [id number] [address] [place] [phone] May, [facility] [address] [id number] [address] [place] [id number] May, [facility] [address] [id number] [address] [place] [id number] May, [facility] [address] [id number] [address] [place] [phone] May, [facility] [address] [id number] [address] [place] [phone] May, [facility] [address] [id number] [address] [place] [phone] May, [facility] [address] [id number] [address] [place] [phone] Apr, [facility] [address] [id number] [address] [place] [id number] Apr, [facility] [address] [id number] [address] [place] [address], [place] [address] Apr, [facility] [address] [id number] [address] [place] [address], [place] [address] Apr, [facility] [address] [id number] [address] [place] [address], [place] [address] Apr, [facility] [address] [id number] [address] [place] [address], [place] [address] Mar, [facility] [address] [id number] [address] [place] [address], [place] [address] Mar, [facility] [address] [id number] [address] [place] [address], [place] [address] Mar, [facility] [address] [id number] [address] [place] [address], [place] [address] Mar, [facility] [address] [id number] [address] [place] [address], [place] [address] Mar, [facility] [address] [id number] [address] [place] [address], [place] [address] Mar, [facility] [address] [id number] [address] [place] [address], [place] [address] Feb, [facility] [address] [id number] [address] [place] [address], [place] [address] Feb, [facility] [address] [id number] [address] [place] [address], [place] [address] Feb, [facility] [address] [id number] [address] [place] [address], [place] [address] Feb, [facility] [address] [id number] [address] [place] [address], [place] [address] Feb, [facility] [address] [id number] [address] [place] [address], [place] [address] Feb, [facility] [address] [id number] [address] [place] [address], [place] [address] Feb, [facility] [address] [id number] [address] [place] [address], [place] [address] Feb, [facility] [address] [id number] [address] [place] [address], [place] [address] Feb, [facility] [address] [id number] [address] [place] [address], [place] [address] Feb, [facility] [address] [id number] [address] [place] [address], [place] [address] Jan, [facility] [address] [id number] [address] [place] [address], [place] [address] Jan, [facility] [address] [id number] [address] [place] [address], [place] [address] Jan, [facility] [address] [id number] [address] [place] [address], [place] [address] Jan, [facility] [address] [id number] [address] [place] [address], [place] [address] Jan, [facility] [address] [id number] [address] [place] [address], [place] [address] Jan, [facility] [address] [id number] [address] [place] [address], [place] [address] Jan, [facility] [address] [id number] [address] [place] [address], [place] [address] Jan, [facility] [address] [id number] [address] [place] [address], [place] [address] Jan, [facility] [address] [id number] [address] [place] [address], [place] [address] Jan, [facility] [address] [id number] [address] [place] [address], [place] [address] Dec, [facility] [address] [id number] [address] [place] [address], [place] [address] Dec, [facility] [address] [id number] [address] [place] [address], [place] [address] Dec, [facility] [address] [id number] [address] [place] [address], [place] [address] Dec, [facility] [address] [id number] [address] [place] [address], [place] [address] Dec, [facility] [address] [id number] [address] [place] [address], [place] [address] Dec, [facility] [address] [id number] [address] [place] [address], [place] [address] Dec, [facility] [address] [id number] [address] [place] [address], [place] [address] Dec, [facility] [address] [id number] [address] [place] [address], [place] [address] Dec, [facility] [address] [id number] [address] [place] [address], [place] [address] Dec, [facility] [address] [id number] [address] [place] [address], [place] [address] Dec, [facility] [address] [id number] [address] [place] [address] Dec, [facility] [address] [id number] [address] [place] [address] Dec, [facility] [address] [id number] [address] [place] [address] Dec, [facility] [address] [id number] [address] [place] [address], [place] [address] Dec, [facility] [address] [id number] [address] [place] [address], [place] [address] Nov, [facility] [address] [id number] [address] [place] [address], [place] [address] Nov, [facility] [address] [id number] [facility] [place] [address] 26 Sep, 2013 [facility] [address] [id number] [address] [place] [address], [place] [address] 26 Sep, 2013 [facility] [address] [id number] [facility] [place] [address] 24 Sep, 2013 [facility] [address] [id number] [address] [place] [address], [place] [address] 24 Sep, 2013 [facility] [address] [id number] [address] [place] [address], [place] [address] 23 Sep, 2013 [facility] [address] [id number] [address] [place] [address], [place] [address] 23 Sep, 2013 [facility] [address] [id number] [address] [place] [address], [place] [address] 18 Sep, 2013 [facility] [address] [id number] [address] [place] [address], [place] [address] 18 Sep, 2013 [facility] [address] [id number] [address] [place] [address], [place] [address] 17 Sep, 2013 [facility] [address] [id number] [address] [place] [address], [place] [address] 17 Sep, 2013 [facility] [address] [id number] [address] [place] [address], [place] [address] 11 Sep, 2013 [facility] [address] [id number] [address] [place] [address], [place] [address] 11 Sep, 2013 [facility] [address] [id number] [address] [place] [address], [place] [address] 10 Sep, 2013 [facility] [address] [id number] [address] [place] [address], [place] [address] 10 Sep, 2013 [facility] [address] [id number] [address] [place] [address], [place] [address] 08 Sep, 2013 [facility] [address] [id number] [address] [place] [address], [place] [address] 08 Nov, 2013 [facility] [address] [id number] [facility] [place] [address] Sep, [facility] [address] [id number] [facility] [place] [place] [address] Sep, [facility] [address] [id number] [facility] [place] [place] [address] Sep, [facility] [address] [id number] [facility] [place] [place] [address] Sep, [facility] [address] [id number] [facility] [place] [place] [address] Sep, [facility] [address] [id number] [address] [place] [address], [place] [address] Sep, [facility] [address] [id number] [address] [place] [address], [place] [address] Aug, [facility] [address] [id number] [address] [place] [address], [place] [address] Aug, [facility] [address] [id number] [address] [place] [address], [place] [address] Aug, [facility] [address] [id number] [address] [place] [address], [place] [address] Aug, [facility] [address] [id number] [address] [place] [address], [place] [address] Aug, [facility] [address] [id number] [address] [place] [address], [place] [address] Aug, [facility] [address] [id number] [address] [place] [address], [place] [address] Aug, [facility] [address] [id number] [address] [place] [address], [place] [address] Aug, [facility] [address] [id number] [address] [place] [address], [place] [address] Aug, [facility] [address] [id number] [address] [place] [address], [place] [address] Aug, [facility] [address] [id number] [address] [place] [address], [place] [address] Aug, [facility] [address] [id number] [address] [place] [address], [place] [address] July, [facility] [address] [id number] [address] [place] [address], [place] [address] July, [facility] [address] [id number] [address] [place] [address], [place] [address] Jun, [facility] [address] [id number] [address] [place] [address], [place] [address] Jun, [facility] [address] [id number] [address] [place] [address], [place] [address] Jun, [facility] [address] [id number] [address] [place] [address], [place] [address] Jun, [facility] [address] [id number] [address] [place] [address], [place] [address] Jun, [facility] [address] [id number] [address] [place] [address], [place] [address] Jun, [facility] [address] [id number] [address] [place] [address], [place] [address] Jun, [facility] [address] [id number] [address] [place] [address], [place] [address] Jun, [facility] [address] [id number] [address] [place] [address], [place] [address] Jun, [facility] [address] [id number] [address] [place] [address], [place] [address] Jun, [facility] [address] [id number] [address] [place] [address], [place] [address] Jun, [facility] [address] [id number] [address] [place] [address], [place] [address] Jun, [facility] [address] [id number] [facility] [place] [place] [address] May, [facility] [address] [id number] [facility] [place] [place] [address] May, [facility] [address] [id number] [facility] [place] [address] May, [facility] [address] [id number] [address] [place] [address], [place] [address] May, [facility] [address] [id number] [address] [place] [address], [place] [address] May, [facility] [address] [id number] [address] [place] [address], [place] [address] May, [facility] [address] [id number] [address] [place] [address], [place] [address] May, [facility] [address] [id number] [address] [place] [address], [place] [address] May, [facility] [address] [id number] [address] [place] [address], [place] [address] May, [facility] [address] [id number] [address] [place] [address], [place] [address] May, [facility] [address] [id number] [address] [place] [address], [place] [address] May, [facility] [address] [id number] [address] [place] [address], [place] [address] May, [facility] [address] [id number] [address] [place] [address], [place] [address] Apr, [facility] [address] [id number] [address] [place] [address], [place] [address] Apr, [facility] [address] [id number] [address] [place] [address], [place] [address] Apr, [facility] [address] [id number] [address] [place] [address], [place] [address] Apr, [facility] [address] [id number] [address] [place] [address], [place] [address] Apr, [facility] [address] [id number] [address] [place] [address], [place] [address] Apr, [facility] [address] [id number] [address] [place] [address], [place] [address] Apr, [facility] [address] [id number] [address] [place] [address], [place] [address] Apr, [facility] [address] [id number] [address] [place] [address], [place] [address] Apr, [facility] [address] [id number] [address] [place] [address], [place] [address] Apr, [facility] [address] [id number] [address] [place] [address], [place] [address] Apr, [facility] [address] [id number] [address] [place] [address], [place] [address] Apr, [facility] [address] [id number] [address] [place] [address], [place] [address] Apr, [facility] [address] [id number] [address] [place] [address], [place] [address] Apr, [facility] [address] [id number] [address] [place] [address], [place] [address] Apr, [facility] [address] [id number] [address] [place] [address], [place] [address] Apr, [facility] [address] [id number] [address] [place] [address], [place] [address] Apr, [facility] [address] [id number] [address] [place] [address], [place] [address] Jan, [facility] [address] [id number] [address] [place] [address], [place] [address] Jan, [facility] [address] [id number] [address] [place] [address], [place] [address] 08 Jan, 2013 [facility] [address] [id number] [address] [place] [address], [place] [address] Jan, [facility] [address] [id number] [address] [place] [address], [place] [address] Jan, [facility] [address] [id number] [address] [place] [address], [place] [address] Jan, [facility] [address] [id number] [address] [place] [address], [place] [address] Jan, [facility] [address] [id number] [address] [place] [address], [place] [address] Dec, [facility] [address] [id number] [address] [place] [address], [place] [address] Dec, [facility] [address] [id number] [address] [place] [address], [place] [address] Dec, [facility] [address] [id number] [address] [place] [address], [place] [address] Nov, [facility] [address] [id number] [address] [place] [address], [place] [address] Nov, [facility] [address] [id number] [address] [place] [address], [place] [address] Nov, [facility] [address] [id number] [address] [place] [address], [place] [address] Nov, [facility] [address] [id number] [address] [place] [address], [place] [address] Oct, [facility] [address] [id number] [address] [place] [address], [place] [address] Oct, [facility] [address] [id number] [address] [place] [address], [place] [address] Oct, [facility] [address] [id number] [address] [place] [address], [place] [address] Oct, [facility] [address] [id number] [address] [place] [address], [place] [address] Oct, [facility] [address] [id number] [address] [place] [address], [place] [address] Sep, [facility] [address] [id number] [address] [place] [address], [place] [address] Sep, [facility] [address] [id number] [address] [place] [address], [place] [address] Sep, [facility] [address] [id number] [address] [place] [address], [place] [address] Sep, [facility] [address] [id number] [address] [place] [address], [place] [address] Sep, [facility] [address] [id number] [address] [place] [address], [place] [address] Sep, [facility] [address] [id number] [address] [place] [address], [place] [address] Sep, [facility] [address] [id number] [address] [place] [address], [place] [address] Aug, [facility] [address] [id number] [address] [place] [address], [place] [address] Aug, [facility] [address] [id number] [address] [place] [address], [place] [address] July, [facility] [address] [id number] [address] [place] [address], [place] [address] Jun, [facility] [address] [id number] [address] [place] [address], [place] [address] Jun, [facility] [address] [id number] [address] [place] [address], [place] [address] Jun, [facility] [address] [id number] [address] [place] [address], [place] [address] Apr, [facility] [address] [id number] [address] [place] [address], [place] [address] Apr, [facility] [address] [id number] [address] [place] [address], [place] [address] Apr, [facility] [address] [id number] [address] [place] [address], [place] [address] Mar, [facility] [address] [id number] [address] [place] [address], [place] [address] Mar, [facility] [address] [id number] [address] [place] [address], [place] [address] Mar, [facility] [address] [id number] [address] [place] [address], [place] [address] Mar, [facility] [address] [id number] [address] [place] [address], [place] [address] Mar, [facility] [address] [id number] [address] [place] [address], [place] [address] 14 Feb, 2012 [facility] [address] [id number] [address] [place] [address], [place] [address] 14 Feb, 2012 [facility] [address] [id number] [address] [place] [address], [place] [address] 13 Jan, 2012 [facility] [address] [id number] [address] [place] [address], [place] [address] 13 Jan, 2012 [facility] [address] [id number] [address] [place] [address], [place] [address] 13 Jan, 2012 [facility] [address] [id number] [address] [place] [address], [place] [address] 13 Jan, 2012 [facility] [address] [id number] [address] [place] [address], [place] [address] 07 Jan, 2012 [facility] [address] [id number] [address] [place] [address], [place] [address] 07 Jan, 2012 [facility] [address] [id number] [address] [place] [address], [place] [address] Jan, [facility] [address] [id number] [address] [place] [address], [place] [address] Dec, [facility] [address] [id number] [address] [place] [address], [place] [address] Dec, [facility] [address] [id number] [address] [place] [address], [place] [address] Dec, [facility] [address] [id number] [address] [place] [address], [place] [address] Dec, [facility] [address] [id number] [address] [place] [address], [place] [address] Dec, [facility] [address] [id number] [address] [place] [address], [place] [address] Dec, [facility] [address] [id number] [address] [place] [address], [place] [address] Dec, [facility] [address] [id number] [address] [place] [address], [place] [address] Dec, [facility] [address] [id number] [address] [place] [address], [place] [address] Dec, [facility] [address] [id number] [address] [place] [address] Dec, [facility] [address] [id number] [address] [place] [address] Oct, [facility] [address] [id number] [address] [place] [address] Oct, [facility] [address] [id number] [address] [place] [address], [place] [address] Aug, [facility] [address] [id number] [address] [place] [address] Aug, [facility] [address] [id number] [address] [place] [address] July, [facility] [address] [id number] [address] [place] [address], [place] [address] 17 Jun, 2011 [facility] [address] [id number] [address] [place] [address], [place] [address] 09 Jun, 2011 [facility] [address] [id number] [address] [place] [address], [place] [address] May, [facility] [address] [id number] [address] [place] [address], [place] [address] Apr, [facility] [address] [id number] [address] [place] [address], [place] [address] Apr, [facility] [address] [id number] [address] [place] [address], [place] [address] Mar, [facility] [address] [id number] [address] [place] [address], [place] [address] Mar, [facility] [address] [id number] [address] [place] [address], [place] [address] Feb, [facility] [address] [id number] [address] [place] [address], [place] [address] 15 Feb, 2011 [facility] [address] [id number] [address] [place] [address], [place] [address] 13 Feb, 2011 [facility] [address] [id number] [address] [place] [address], [place] [address] 13 Feb, 2011 [facility] [address] [id number] [address] [place] [address], [place] [address] Jan, [facility] [address] [id number] [address] [place] [address], [place] [address] 17 Dec, 2010 [facility] [address] [id number] [address] [place] [address], [place] [address] 08 Feb, 2010 [facility] [address] [id number] [address] [place] [address], [place] [address] Feb, [facility] [address] [id number] [address] [place] [address], [place] [address] Feb, [facility] [address] [id number] [address] [place] [address] Feb, [facility] [address] [id number] [address] [place] [address] Dec, [facility] [address] [id number] [address] [place] [address] Dec, [facility] [address] [id number] [address] [place] [address] Oct, [facility] [address] [id number] [address] [place] [address] Jun, [facility] [address] [id number] [address] [place] [address] Feb, [facility] [address] [id number] [address] [place] [address] Feb, [facility] [address] [id number] [address] [place] [address] Feb, [facility] [address] [id number] [address] [place] [address] Dec, IMMUNIZATIONS No Known Immunizations SOCIAL HISTORY [...]
--- OUTSIDE RECORDS SUMMARY | 2019-10-19 12:18 | XMS REPORT ---
Author Author Mary Jane Mcginnis Doctor Organization [facility] Address Unknown Phone Unavailable Care Team Providers Care Nursing Unit Coordinator Name Role Phone Migration, Doctor Unavailable Unavailable PROBLEMS Type Condition ICD9-CM Code OOB42-PH Code Onset Dates Condition S tatus SNOMED Code Problem Thyroid follicular adenoma D34 Act phylicia 743550583 Problem History of DVT (deep vein thrombosis) Z86.718 Active 574739108 Problem Factor V Leiden D68.51 Active 3070 69782 Problem [facility] (current) use of anticoagulants Z79.01 Active 819074807 Problem Hypertriglyceridemia E78.1 Active 194181902 Problem Presence of IVC filter Z95.828 Active 637405098 Problem 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 Active 318759486 Problem Peripheral edema R60.9 Active 271 104374 Problem Excessive daytime sleepiness G47.19 A ctive 679600925334 Problem Gastroesophageal reflux disease, esophagitis pre sence not specified K21.9 Active 595862705 Problem Chronic pain due to trauma G89.21 Act phylicia 963770404 Problem Pelvic pain R10.2 Active 75722324 Problem Subclinical hypothyroidism E03.9 Act phylicia 82347600 Problem Generalized anxiety disorder F41.1 A ctive 307908986 Problem Thyroid nodule E04.1 Active 91120 5005 Problem Morbid obesity E66.01 Active 39170 6002 Problem Moderate episode of recurrent major depressive disorder F33.1 Active 400863263 Problem Vitamin D deficiency E55.9 Active 49869486 ALLERGIES No Information ENCOUNTERS Encounter Location Date Diagnosis [facility] [address] [facility] [id number] [address] [place] [phone] 23 Aug, 2019 [facility] [address] [facility] [id number] [address] [place] [phone] 19 Aug, 2019 Morbid obesity E66.01 [facility] [address] [facility] [id number] [address] [place] [phone] 11 Aug, 2019 Subclinical hypothyroidism E 03.9 [place] [id number] [facility] [id number] [address] [place] [phone] 05 Aug, 2019 Subclinical hypothyroidism E 03.9 and Anemia D64.9 [place] [address] [facility] [id number] [address] [place] [phone] 04 Aug, 2019 [facility] [address] [facility] [id number] [address] [place] [phone] Aug, [place] [address] [facility] [id number] [address] [place] [phone] July, [place] [address] [facility] [id number] [address] [place] [phone] July, Subclinical hypothyroidism E 03.9 and Anemia D64.9 [place] [address] [facility] [id number] [address] [place] [phone] July, Thyroid nodule E04.1 ; Hyper triglyceridemia E78.1 ; Excessive daytime sleepiness G47.19 and Vitamin D deficiency E55.9 [place] [address] [facility] [id number] [address] [place] [phone] July, Hypertriglyceridemia E78.1 ; Excessive daytime sleepiness G47.19 ; Vitamin D deficiency E55.9 ; Morbid obesity E66.01 ; Peripheral edema R60.9 ; Generalized anxiety disorder F41.1 and Chronic pain due to trauma G89.21 [place] [address] [facility] [id number] [address] [place] [phone] 28 Jun, 2019 [place] [address] [facility] [id number] [address] [place] [phone] 15 Jun, 2019 Back pain with history of sp inal surgery M54.9 [place] [address] [facility] [id number] [address] [place] [phone] 12 Apr, 2019 Back pain with history of sp inal surgery M54.9 [place] [address] [facility] [id number] [address] [place] [phone] 11 Apr, 2019 [place] [address] [place] [id number] [address] [place] [phone] 10 Apr, 2019 Gastroenteritis K52.9 ; Back pain with history of spinal surgery M54.9 ; Dermatofibroma of lower leg, unspecified laterality D23.70 and Morbid obesity E66.01 [facility] [address] [facility] [id number] [address] [place] [phone] Mar, [facility] [address] [facility] [id number] [address] [place] [phone] Jan, [facility] [address] [facility] [id number] [address] [place] [phone] Jan, [place] [address] [facility] [id number] [address] [place] [phone] Dec, Encounter for weight managem ent Z76.89 [place] [address] [facility] [id number] [address] [place] [phone] Dec, Encounter for weight managem ent Z76.89 and Screening mammogram, encounter for Z12.31 [place] [address] [facility] [id number] [address] [place] [phone] Nov, Encounter for weight managem ent Z76.89 [place] [address] [facility] [id number] [address] [place] [phone] Nov, Thyroid nodule E04.1 [place] [address] [facility] [id number] [address] [place] [phone] Nov, Thyroid nodule E04.1 [place] [address] [facility] [id number] [address] [place] [phone] Nov, Thyroid nodule E04.1 [place] [address] [facility] [id number] [address] [place] [phone] Oct, Syncope, unspecified syncope type R55 and Encounter for weight management Z76.89 [place] [address] [facility] [id number] [address] [place] [phone] Oct, Morbid obesity E66.01 [place] [address] [place] [id number] [address] [place] [phone] Oct, Hypertriglyceridemia E78.1 [facility] [address] [id number] [address] [place] [phone] Oct, [facility] [address] [facility] [id number] [address] [place] [phone] Oct, Hypertriglyceridemia E78.1 [facility] [address] [id number] [address] [place] [phone] Sep, Hypertriglyceridemia E78.1 a nd Vitamin D deficiency E55.9 [facility] [address] [id number] [address] [place] [phone] Sep, [facility] [address] [facility] [id number] [address] [place] [phone] Sep, Morbid obesity E66.01 ; Mode rate episode of recurrent major depressive disorder F33.1 ; Hypertriglyceridemia E78.1 and Vitamin D deficiency E55.9 [facility] [address] [id number] [address] [place] [phone] Aug, [facility] [address] [facility] [id number] [address] [place] [phone] July, [facility] [address] [facility] [id number] [address] [place] [phone] July, [facility] [address] [facility] [id number] [address] [place] [phone] Jun, [facility] [address] [id number] [address] [place] [phone] Jun, [facility] [address] [facility] [id number] [address] [place] [phone] Jun, Closed compression fracture of L3 lumbar vertebra with routine healing, subsequent encounter S32.030D and Drug-induced constipation K59.03 [facility] [address] [facility] [id number] [address] [place] [phone] Jun, [facility] [address] [facility] [id number] [address] [place] [phone] Jun, [facility] [address] [facility] [id number] [address] [place] [phone] Apr, [facility] [address] [facility] [id number] [address] [place] [phone] Apr, Morbid obesity E66.01 [facility] [address] [facility] [id number] [address] [place] [phone] Apr, Morbid obesity E66.01 ; Hype rtriglyceridemia E78.1 ; Gastroesophageal reflux disease, esophagitis presence not specified K21.9 and Joint pain M25.50 [facility] [address] [facility] [id number] [address] [place] [phone] Feb, [facility] [address] [phone] Feb, [facility] [address] [place] [id number] [address] [place] [phone] Jan, Acute bacterial conjunctivit is H10.30 [facility] [address] [place] [id number] [address] [place] [phone] 08 Dec, 2017 [facility] [address] [place] [id number] [address] [place] [phone] 04 Dec, 2017 [facility] [id number] [place] [phone] 17 Nov, 2017 [facility] [address] [facility] [id number] [address] [place] [phone] 07 Nov, 2017 Obstructive sleep apnea G47. 33 ; Morbid obesity E66.01 and Gastroesophageal reflux disease, esophagitis presence not specified K21.9 [facility] [address] [id number] [address] [place] [address] [id number] 06 Nov, 2017 Encounter for examination of eyes and vision without abnormal findings Z01.00 [facility] [address] [facility] [id number] [address] [place] [phone] Oct, Thyroid nodule E04.1 and Scr eening for breast cancer Z12.31 [facility] [address] [facility] [id number] [address] [place] [phone] Oct, History of DVT (deep vein th rombosis) Z86.718 ; Thyroid nodule E04.1 and Gastroesophageal reflux disease, esophagitis presence not specified K21.9 [facility] [address] [facility] [id number] [address] [place] [phone] Oct, [facility] [address] [id number] [address] [place] [phone] Sep, [place] [address] [facility] [id number] [address] [place] [phone] Aug, [place] [address] [place] [id number] [address] [place] [phone] Aug, [place] [address] [place] [id number] [address] [place] [phone] Aug, Acute pain of left shoulder M25.512 and Thyroid nodule E04.1 [place] [address] [place] [id number] [address] [place] [phone] July, Superior glenoid labrum lesi on of left shoulder, subsequent encounter S43.432D [place] [address] [place] [id number] [address] [place] [phone] Jun, History of DVT (deep vein th rombosis) Z86.718 [facility] [address] [facility] [id number] [address] [place] [phone] Jun, History of DVT (deep vein th rombosis) Z86.718 [place] [address] [facility] [id number] [address] [place] [phone] Jun, Impingement syndrome, should er, left M75.42 [facility] [address] [place] [id number] [address] [place] [phone] May, Subacromial bursitis of left shoulder joint M75.52 [place] [address] [id number] [address] [place] [phone] May, [place] [address] [id number] [address] [place] [phone] May, Hypertriglyceridemia E78.1 ; 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 and Excessive daytime sleepiness G47.19 [place] [address] [id number] [address] [place] [phone] May, History of DVT (deep vein th rombosis) Z86.718 ; Generalized anxiety disorder F41.1 ; Hypertriglyceridemia E78.1 ; [facility] (current) use of anticoagulants Z79.01 ; Subacromial bursitis of left shoulder joint M75.52 and Excessive daytime sleepiness G47.19 [place] [address] [id number] [address] [place] [phone] May, [place] [address] [id number] [address] [place] [phone] May, 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 [place] [address] [id number] [address] [place] [phone] Apr, 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 [place] [address] [id number] [address] [place] [phone] Apr, 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 [place] [address] [id number] [address] [place] [phone] Apr, 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 [place] [address] [id number] [address] [place] [phone] Apr, [place] [address] [id number] [address] [place] [phone] Apr, [facility] (current) use of a nticoagulants Z79.01 [facility] [address] [id number] [address] [place] [phone] 13 Apr, 2017 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 [facility] [address] [id number] [address] [place] [phone] Apr, [facility] (current) use of a nticoagulants Z79.01 [facility] [address] [id number] [address] [place] [phone] Apr, [facility] (current) use of a nticoagulants Z79.01 [facility] [address] [id number] [address] [place] [phone] Apr, [facility] (current) use of a nticoagulants Z79.01 [facility] [address] [id number] [address] [place] [phone] Apr, 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 [facility] [address] [id number] [address] [place] [phone] Mar, 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 [facility] [address] [id number] [address] [place] [phone] Mar, [facility] [address] [id number] [address] [place] [phone] Mar, [facility] (current) use of a nticoagulants Z79.01 [facility] [address] [id number] [address] [place] [address] [id number] Jan, Dental examination Z01.20 [facility] [address] [id number] [address] [place] [address] [id number] Jan, [facility] [address] [id number] [address] [place] [phone] Jan, 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 [facility] [address] [id number] [address] [place] [phone] Jan, History of DVT (deep vein th rombosis) Z86.718 [facility] [address] [id number] [address] [place] [phone] Jan, Generalized anxiety disorder F41.1 and Peripheral edema R60.9 [facility] [address] [id number] [address] [place] [phone] Nov, History of DVT (deep vein th rombosis) Z86.718 [facility] [address] [id number] [address] [place] [phone] Nov, [facility] (current) use of a nticoagulants Z79.01 [facility] [address] [facility] [id number] [address] [place] [phone] Nov, Acute non-recurrent maxillar y sinusitis J01.00 [facility] [address] [id number] [address] [place] [phone] Oct, 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 [place] [address] [facility] [id number] [address] [place] [phone] Oct, Personal history of venous t hrombosis and embolism Z86.718 [facility] [address] [id number] [address] [place] [phone] Sep, [facility] [address] [id number] [address] [place] [phone] Sep, Personal history of venous t hrombosis and embolism Z86.718 [facility] [address] [facility] [id number] [address] [place] [phone] Sep, 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 [facility] [address] [facility] [id number] [address] [place] [phone] Sep, 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 [place] [address] [facility] [id number] [address] [place] [phone] Sep, Generalized anxiety disorder F41.1 and History of DVT (deep vein thrombosis) Z86.718 [place] [address] [place] [id number] [address] [place] [phone] Aug, History of DVT (deep vein th rombosis) Z86.718 ; Generalized anxiety disorder F41.1 ; 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 ; Pelvic pain R10.2 ; Hypertriglyceridemia E78.1 ; Excessive daytime sleepiness G47.19 ; Colon cancer screening Z12.11 ; Screening for breast cancer Z12.39 ; Peripheral edema R60.9 and Gastroesophageal reflux disease, esophagitis presence not specified K21.9 [place] [address] [place] [id number] [address] [place] [phone] Aug, [place] [address] [phone] July, [place] [address] [place] [id number] [place] [phone] July, History of DVT (deep vein th rombosis) Z86.718 [place] [address] [place] [id number] [address] [place] [phone] Jun, Generalized anxiety disorder F41.1 [place] [address] [place] [id number] [address] [place] [phone] Jun, History of DVT (deep vein th rombosis) Z86.718 [place] [address] [place] [id number] [address] [place] [phone] Jun, History of DVT (deep vein th rombosis) Z86.718 [place] [address] [place] [id number] [address] [place] [phone] Jun, History of DVT (deep vein th rombosis) Z86.718 [place] [address] [place] [id number] [place] [phone] Jun, History of DVT (deep vein th rombosis) Z86.718 [facility] [address] [facility] [id number] [address] [place] [phone] May, History of DVT (deep vein th rombosis) Z86.718 [facility] [address] [facility] [id number] [address] [place] [phone] May, 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 [facility] [address] [facility] [id number] [address] [place] [phone] May, [facility] (current) use of a nticoagulants Z79.01 [place] [address] [facility] [id number] [address] [place] [phone] May, History of DVT (deep vein th rombosis) Z86.718 [facility] [address] [facility] [id number] [address] [place] [phone] Apr, Bacterial conjunctivitis of left eye H10.9 and H/O motion sickness Z87.898 [place] [address] [facility] [id number] [address] [place] [phone] 24 Apr, 2016 History of DVT (deep vein th rombosis) Z86.718 [facility] [address] [facility] [id number] [address] [place] [phone] Apr, History of DVT (deep vein th rombosis) Z86.718 [facility] [address] [facility] [id number] [address] [place] [phone] 15 Apr, 2016 History of DVT (deep vein th rombosis) Z86.718 [facility] [address] [facility] [id number] [address] [place] [phone] 14 Apr, 2016 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 [place] [address] [facility] [id number] [address] [place] [phone] Mar, [facility] [address] [id number] [address] [place] [phone] Mar, [facility] (current) use of a nticoagulants Z79.01 [facility] [address] [id number] [address] [place] [phone] Mar, Hypertriglyceridemia E78.1 a nd 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 [facility] [address] [id number] [address] [place] [phone] Feb, [facility] (current) use of a nticoagulants Z79.01 [facility] [address] [id number] [address] [place] [phone] Feb, [facility] (current) use of a nticoagulants Z79.01 [facility] [address] [id number] [address] [place] [phone] Feb, 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 [facility] [address] [id number] [address] [place] [phone] Dec, [facility] [address] [id number] [address] [place] [phone] Nov, [facility] [address] [id number] [address] [place] [phone] Nov, History of DVT (deep vein th rombosis) Z86.718 ; Tremulousness R25.1 ; Generalized anxiety disorder F41.1 ; Peripheral edema R60.9 and Hypertriglyceridemia E78.1 [facility] [address] [id number] [address] [place] [phone] Oct, History of DVT (deep vein th rombosis) Z86.718 [facility] [address] [id number] [address] [place] [phone] Oct, [facility] [address] [id number] [address] [place] [phone] Sep, History of DVT (deep vein th rombosis) Z86.718 [facility] [address] [id number] [address] [place] [phone] Sep, 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 [facility] [address] [id number] [address] [place] [phone] July, [facility] [address] [id number] [address] [place] [phone] July, 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 [place] [address] [id number] [address] [place] [phone] July, [facility] (current) use of a nticoagulants Z79.01 [place] [address] [id number] [address] [place] [phone] Jun, [facility] (current) use of a nticoagulants Z79.01 [facility] [address] [id number] [address] [place] [id number] Jun, Coccyx pain M53.3 ; Encounte r for therapeutic drug level monitoring Z51.81 and 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 current use 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.01 [place] [address] [id number] [address] [place] [id number] May, Abnormal mammogram R92.8 [facility] [address] [id number] [address] [place] [id number] May, [facility] [place] [id number] [id number] [address] [place] [phone] May, Acute vaginitis N76.0 and En counter for other screening for malignant neoplasm of breast Z12.39 [place] [address] [id number] [address] [place] [phone] Apr, [place] [address] [facility] [id number] [address] [place] [phone] Apr, [place] [address] [id number] [address] [place] [phone] Apr, Peripheral edema R60.9 [facility] [address] [id number] [address] [place] [id number] Apr, 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 [facility] [address] [id number] [address] [place] [phone] Apr, Peripheral edema R60.9 and [facility] (current) 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 Z79.01 [facility] [facility] [address] [id number] [address] [place] [address] Apr, [facility] (current) use of a nticoagulants Z79.01 [place] [id number] [id number] [address] [place] [address] Apr, [facility] [address] [id number] [address] [place] [address] Apr, 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 [facility] [address] [id number] [address] [place] [address] Apr, Peripheral edema R60.9 [facility] [address] [id number] [address] [place] [address] Mar, [facility] (current) use of a nticoagulants Z79.01 [facility] [address] [id number] [address] [place] [address] Mar, [facility] (current) use of a nticoagulants Z79.01 and Hypertriglyceridemia E78.1 [facility] [address] [id number] [address] [place] [address] Mar, [facility] (current) use of a nticoagulants Z79.01 [facility] [address] [id number] [address] [place] [address] Mar, [facility] (current) use of a nticoagulants Z79.01 [place] [address] [facility] [id number] [address] [place] [address] Mar, [place] [address] [id number] [address] [place] [address] Mar, [facility] (current) use of a nticoagulants Z79.01 ; Hypertriglyceridemia E78.1 ; Personal history of venous thrombosis and embolism Z86.718 and Lump R22.9 [place] [address] [id number] [address] [place] [address] Mar, Personal history of venous t hrombosis and embolism Z86.718 [place] [address] [id number] [address] [place] [address] Mar, Personal history of venous t hrombosis and embolism Z86.718 [place] [address] [facility] [id number] [address] [place] [address] Mar, [place] [address] [id number] [address] [place] [address] Dec, Personal history of venous t hrombosis and embolism Z86.718 [place] [address] [id number] [address] [place] [address] Dec, Personal history of venous t hrombosis and embolism V12.51 [place] [address] [facility] [id number] [address] [place] [address] Nov, Personal history of venous t hrombosis and embolism V12.51 [place] [address] [id number] [address] [place] [address] 25 Nov, 2014 Personal history of venous t hrombosis and embolism V12.51 [place] [address] [facility] [id number] [address] [place] [address] 17 Nov, 2014 Personal history of venous t hrombosis and embolism V12.51 [place] [address] [facility] [id number] [address] [place] [address] Nov, Personal history of venous t hrombosis and embolism V12.51 [facility] [address] [id number] [address] [place] [address] Nov, [facility] [address] [id number] [address] [place] [address] Oct, Dysuria 788.1 [facility] [address] [id number] [address] [place] [address] Oct, Personal history of venous t hrombosis and embolism V12.51 [facility] [address] [id number] [address] [place] [address] Oct, [facility] [address] [id number] [address] [place] [address] Oct, Personal history of venous t hrombosis and embolism V12.51 [facility] [address] [id number] [address] [place] [address] Sep, Personal history of venous t hrombosis and embolism V12.51 [facility] [address] [id number] [address] [place] [address] Sep, Personal history of venous t hrombosis and embolism V12.51 [facility] [address] [id number] [address] [place] [address] Aug, Personal history of venous t hrombosis and embolism V12.51 [facility] [address] [id number] [address] [place] [address] Aug, Personal history of venous t hrombosis and embolism V12.51 [facility] [address] [id number] [address] [place] [address] Aug, Personal history of venous t hrombosis and embolism V12.51 [facility] [address] [id number] [address] [place] [address] July, Generalized anxiety disorder 300.02 ; Abdominal pain, left lower quadrant 789.04 and Personal history of venous thrombosis and embolism V12.51 [facility] [address] [id number] [address] [place] [address], [place] [address] 14 Jun, 2014 [facility] [address] [id number] [address] [place] [address], [place] [address] Jun, [facility] [address] [id number] [address] [place] [address], [place] [address] May, [facility] [address] [id number] [address] [place] [address], [place] [address] May, [facility] [address] [id number] [address] [place] [address], [place] [address] May, [facility] [address] [id number] [address] [place] [address], [place] [address] May, [facility] [address] [id number] [address] [place] [address], [place] [address] May, [facility] [address] [id number] [address] [place] [address] May, [facility] [address] [id number] [address] [place] [address], [place] [address] May, [facility] [address] [id number] [address] [place] [address] May, [facility] [address] [id number] [address] [place] [address], [place] [address] Apr, [facility] [address] [id number] [address] [place] [address] Apr, [facility] [address] [id number] [address] [place] [address], [place] [address] Apr, [facility] [address] [id number] [address] [place] [address], [place] [address] Apr, [facility] [address] [id number] [address] [place] [address], [place] [address] Apr, [facility] [address] [id number] [address] [place] [address], [place] [address] Mar, [facility] [address] [id number] [address] [place] [address], [place] [address] Mar, [facility] [address] [id number] [address] [place] [address], [place] [address] Mar, [facility] [address] [id number] [address] [place] [address], [place] [address] Mar, [facility] [address] [id number] [address] [place] [address], [place] [address] Mar, [facility] [address] [id number] [address] [place] [address], [place] [address] Mar, [facility] [address] [id number] [address] [place] [address], [place] [address] Feb, [facility] [address] [id number] [address] [place] [address], [place] [address] Feb, [facility] [address] [id number] [address] [place] [address], [place] [address] Feb, [facility] [address] [id number] [address] [place] [address], [place] [address] Feb, [facility] [address] [id number] [address] [place] [address], [place] [address] Feb, [facility] [address] [id number] [address] [place] [address], [place] [address] Feb, [facility] [address] [id number] [address] [place] [address], [place] [address] Feb, [facility] [address] [id number] [address] [place] [address], [place] [address] Feb, [facility] [address] [id number] [address] [place] [address], [place] [address] Feb, [facility] [address] [id number] [address] [place] [address], [place] [address] Feb, [facility] [address] [id number] [address] [place] [address], [place] [address] Jan, [facility] [address] [id number] [address] [place] [address], [place] [address] Jan, [facility] [address] [id number] [address] [place] [address], [place] [address] Jan, [facility] [address] [id number] [address] [place] [address], [place] [address] Jan, [facility] [address] [id number] [address] [place] [address], [place] [address] Jan, [facility] [address] [id number] [address] [place] [address], [place] [address] Jan, [facility] [address] [id number] [address] [place] [address], [place] [address] Jan, [facility] [address] [id number] [address] [place] [address], [place] [address] Jan, [facility] [address] [id number] [address] [place] [address], [place] [address] Jan, [facility] [address] [id number] [address] [place] [address], [place] [address] Jan, [facility] [address] [id number] [address] [place] [address], [place] [address] Dec, [facility] [address] [id number] [address] [place] [address], [place] [address] Dec, [facility] [address] [id number] [address] [place] [address], [place] [address] Dec, [facility] [address] [id number] [address] [place] [address], [place] [address] Dec, [facility] [address] [id number] [address] [place] [address], [place] [address] Dec, [facility] [address] [id number] [address] [place] [address], [place] [address] Dec, [facility] [address] [id number] [address] [place] [address], [place] [address] Dec, [facility] [address] [id number] [address] [place] [address], [place] [address] Dec, [facility] [address] [id number] [address] [place] [address], [place] [address] Dec, [facility] [address] [id number] [address] [place] [address], [place] [address] Dec, [facility] [address] [id number] [address] [place] [address], [place] [address] Dec, [facility] [address] [id number] [address] [place] [address], [place] [address] Dec, [facility] [address] [id number] [address] [place] [address], [place] [address] Dec, [facility] [address] [id number] [address] [place] [address], [place] [address] Dec, [facility] [address] [id number] [address] [place] [address], [place] [address] Dec, [facility] [address] [id number] [address] [place] [address], [place] [address] 30 Nov, 2013 [facility] [address] [id number] [address] [place] [address], [place] [address] 30 Nov, 2013 [facility] [address] [id number] [address] [place] [address], [place] [address] 26 Nov, 2013 [facility] [address] [id number] [address] [place] [address], [place] [address] 26 Nov, 2013 [facility] [address] [id number] [address] [place] [address], [place] [address] 24 Nov, 2013 [facility] [address] [id number] [address] [place] [address], [place] [address] 24 Nov, 2013 [facility] [address] [id number] [facility] [place] [address] 23 Sep, 2013 [facility] [address] [id number] [facility] [place] [address] 23 Sep, 2013 [facility] [address] [id number] [facility] [place] [address] 18 Nov, 2013 [facility] [address] [id number] [address] [place] [address], [place] [address] 18 Nov, 2013 [facility] [address] [id number] [facility] [place] [address] 17 Nov, 2013 [facility] [address] [id number] [address] [place] [address], [place] [address] 17 Nov, 2013 [facility] [address] [id number] [address] [place] [address], [place] [address] 11 Nov, 2013 [facility] [address] [id number] [address] [place] [address], [place] [address] 11 Nov, 2013 [facility] [address] [id number] [address] [place] [address], [place] [address] 10 Nov, 2013 [facility] [address] [id number] [address] [place] [address], [place] [address] 10 Nov, 2013 [facility] [address] [id number] [address] [place] [address], [place] [address] 08 Nov, 2013 [facility] [address] [id number] [address] [place] [address], [place] [address] 08 Nov, 2013 [facility] [address] [id number] [address] [place] [address], [place] [address] 22 Sep, 2013 [facility] [address] [id number] [address] [place] [address], [place] [address] Sep, 2013 [facility] [address] [id number] [address] [place] [address], [place] [address] Sep, 2013 [facility] [address] [id number] [address] [place] [address], [place] [address] Sep, [facility] [address] [id number] [facility] [place] [address] Sep, [facility] [address] [id number] [facility] [place] [address] Sep, [facility] [address] [id number] [facility] [place] [address] Aug, [facility] [address] [id number] [address] [place] [address], [place] [address] Aug, [facility] [address] [id number] [address] [place] [address], [place] [address] Aug, [facility] [address] [id number] [address] [place] [address], [place] [address] Aug, [facility] [address] [id number] [address] [place] [address], [place] [address] Aug, [facility] [address] [id number] [address] [place] [address], [place] [address] Aug, [facility] [address] [id number] [address] [place] [address], [place] [address] Aug, [facility] [address] [id number] [address] [place] [address], [place] [address] Aug, [facility] [address] [id number] [address] [place] [address], [place] [address] Aug, [facility] [address] [id number] [address] [place] [address], [place] [address] Aug, [facility] [address] [id number] [address] [place] [address], [place] [address] Aug, [facility] [address] [id number] [address] [place] [address], [place] [address] July, [facility] [address] [id number] [address] [place] [address], [place] [address] July, [facility] [address] [id number] [address] [place] [address], [place] [address] Jun, [facility] [address] [id number] [address] [place] [address], [place] [address] Jun, [facility] [address] [id number] [address] [place] [address], [place] [address] 18 Jun, 2013 [facility] [address] [id number] [address] [place] [address], [place] [address] Jun, [facility] [address] [id number] [address] [place] [address], [place] [address] Jun, [facility] [address] [id number] [address] [place] [address], [place] [address] Jun, [facility] [address] [id number] [address] [place] [address], [place] [address] Jun, [facility] [address] [id number] [address] [place] [address], [place] [address] Jun, [facility] [address] [id number] [address] [place] [address], [place] [address] Jun, [facility] [address] [id number] [address] [place] [address], [place] [address] Jun, [facility] [address] [id number] [address] [place] [address], [place] [address] Jun, [facility] [address] [id number] [address] [place] [address], [place] [address] Jun, [facility] [address] [id number] [address] [place] [address], [place] [address] May, [facility] [address] [id number] [address] [place] [address], [place] [address] May, [facility] [address] [id number] [address] [place] [address], [place] [address] May, [facility] [address] [id number] [address] [place] [address], [place] [address] May, [facility] [address] [id number] [facility] [place] [address] May, [facility] [address] [id number] [address] [place] [address], [place] [address] May, [facility] [address] [id number] [address] [place] [address], [place] [address] May, [facility] [address] [id number] [address] [place] [address], [place] [address] May, [facility] [address] [id number] [address] [place] [address], [place] [address] May, [facility] [address] [id number] [address] [place] [address], [place] [address] May, [facility] [address] [id number] [address] [place] [address], [place] [address] May, [facility] [address] [id number] [address] [place] [address], [place] [address] May, [facility] [address] [id number] [address] [place] [address], [place] [address] Apr, [facility] [address] [id number] [address] [place] [address], [place] [address] Apr, [facility] [address] [id number] [address] [place] [address], [place] [address] Apr, [facility] [address] [id number] [address] [place] [address], [place] [address] Apr, [facility] [address] [id number] [address] [place] [address], [place] [address] Apr, [facility] [address] [id number] [address] [place] [address], [place] [address] Apr, [facility] [address] [id number] [address] [place] [address], [place] [address] Apr, [facility] [address] [id number] [address] [place] [address] Apr, [facility] [address] [id number] [address] [place] [address], [place] [address] Apr, [facility] [address] [id number] [address] [place] [address], [place] [address] Apr, 2013 [facility] [address] [id number] [address] [place] [address], [place] [address] Apr, 2013 [facility] [address] [id number] [address] [place] [address], [place] [address] Apr, [facility] [address] [id number] [address] [place] [address], [place] [address] Apr, [facility] [address] [id number] [address] [place] [address], [place] [address] Apr, [facility] [address] [id number] [address] [place] [address], [place] [address] Apr, [facility] [address] [id number] [address] [place] [address], [place] [address] Apr, [facility] [address] [id number] [address] [place] [address], [place] [address] Apr, [facility] [address] [id number] [address] [place] [address], [place] [address] Jan, [facility] [address] [id number] [address] [place] [address], [place] [address] 13 Jan, 2013 [facility] [address] [id number] [address] [place] [address], [place] [address] 08 Jan, 2013 [facility] [address] [id number] [address] [place] [address], [place] [address] Jan, [facility] [address] [id number] [address] [place] [address], [place] [address] Jan, [facility] [address] [id number] [address] [place] [address], [place] [address] Jan, [facility] [address] [id number] [address] [place] [address], [place] [address] Jan, [facility] [address] [id number] [address] [place] [address], [place] [address] Dec, [facility] [address] [id number] [address] [place] [address], [place] [address] Dec, [facility] [address] [id number] [address] [place] [address], [place] [address] Dec, [facility] [address] [id number] [address] [place] [address], [place] [address] Nov, [facility] [address] [id number] [address] [place] [address], [place] [address] Nov, [facility] [address] [id number] [address] [place] [address], [place] [address] Nov, [facility] [address] [id number] [address] [place] [address], [place] [address] Nov, [facility] [address] [id number] [address] [place] [address], [place] [address] Oct, [facility] [address] [id number] [address] [place] [address], [place] [address] Oct, [facility] [address] [id number] [address] [place] [address], [place] [address] Oct, [facility] [address] [id number] [address] [place] [address], [place] [address] Oct, [facility] [address] [id number] [address] [place] [address], [place] [address] Oct, [facility] [address] [id number] [address] [place] [address], [place] [address] Sep, [facility] [address] [id number] [address] [place] [address], [place] [address] Sep, [facility] [address] [id number] [address] [place] [address], [place] [address] Sep, [facility] [address] [id number] [address] [place] [address], [place] [address] Sep, [facility] [address] [id number] [address] [place] [address], [place] [address] Sep, [facility] [address] [id number] [address] [place] [address], [place] [address] Sep, [facility] [address] [id number] [address] [place] [address], [place] [address] Sep, [facility] [address] [id number] [address] [place] [address], [place] [address] Aug, [facility] [address] [id number] [address] [place] [address], [place] [address] Aug, [facility] [address] [id number] [address] [place] [address], [place] [address] July, [facility] [address] [id number] [address] [place] [address], [place] [address] Jun, [facility] [address] [id number] [address] [place] [address], [place] [address] Jun, [facility] [address] [id number] [address] [place] [address], [place] [address] Jun, [facility] [address] [id number] [address] [place] [address], [place] [address] Apr, [facility] [address] [id number] [address] [place] [address], [place] [address] Apr, [facility] [address] [id number] [address] [place] [address], [place] [address] Apr, [facility] [address] [id number] [address] [place] [address], [place] [address] Mar, [facility] [address] [id number] [address] [place] [address], [place] [address] Mar, [facility] [address] [id number] [address] [place] [address], [place] [address] 2012 [facility] [address] [id number] [address] [place] [address], [place] [address] Mar, [facility] [address] [id number] [address] [place] [address], [place] [address] Mar, [facility] [address] [id number] [address] [place] [address], [place] [address] 14 Feb, 2012 [facility] [address] [id number] [address] [place] [address], [place] [address] 14 Feb, 2012 [facility] [address] [id number] [address] [place] [address], [place] [address] Jan, [facility] [address] [id number] [address] [place] [address], [place] [address] Jan, [facility] [address] [id number] [address] [place] [address], [place] [address] Jan, [facility] [address] [id number] [address] [place] [address], [place] [address] Jan, [facility] [address] [id number] [address] [place] [address], [place] [address] Jan, [facility] [address] [id number] [address] [place] [address], [place] [address] Jan, [facility] [address] [id number] [address] [place] [address], [place] [address] Jan, [facility] [address] [id number] [address] [place] [address], [place] [address] Dec, [facility] [address] [id number] [address] [place] [address], [place] [address] Dec, [facility] [address] [id number] [address] [place] [address], [place] [address] 30 Dec, 2011 [facility] [address] [id number] [address] [place] [address], [place] [address] Dec, [facility] [address] [id number] [address] [place] [address], [place] [address] Dec, [facility] [address] [id number] [address] [place] [address], [place] [address] Dec, [facility] [address] [id number] [address] [place] [address], [place] [address] Dec, [facility] [address] [id number] [address] [place] [address], [place] [address] Dec, [facility] [address] [id number] [address] [place] [address], [place] [address] Dec, [facility] [address] [id number] [address] [place] [address], [place] [address] Dec, [facility] [address] [id number] [address] [place] [address], [place] [address] Oct, [facility] [address] [id number] [address] [place] [address], [place] [address] Oct, [facility] [address] [id number] [address] [place] [address], [place] [address] Aug, [facility] [address] [id number] [address] [place] [address], [place] [address] Aug, [facility] [address] [id number] [address] [place] [address], [place] [address] July, [facility] [address] [id number] [address] [place] [address], [place] [address] Jun, [facility] [address] [id number] [address] [place] [address], [place] [address] Jun, [facility] [address] [id number] [address] [place] [address], [place] [address] May, [facility] [address] [id number] [address] [place] [address], [place] [address] Apr, [facility] [address] [id number] [address] [place] [address], [place] [address] 16 Apr, 2011 [facility] [address] [id number] [address] [place] [address], [place] [address] 19 Mar, 2011 [facility] [address] [id number] [address] [place] [address], [place] [address] 16 Mar, 2011 [facility] [address] [id number] [address] [place] [address], [place] [address] 19 Feb, 2011 [facility] [address] [id number] [address] [place] [address], [place] [address] 15 Feb, 2011 [facility] [address] [id number] [address] [place] [address], [place] [address] 13 Feb, 2011 [facility] [address] [id number] [address] [place] [address], [place] [address] 13 Feb, 2011 [facility] [address] [id number] [address] [place] [address], [place] [address] Jan, [facility] [address] [id number] [address] [place] [address], [place] [address] 17 Dec, 2010 [facility] [address] [id number] [address] [place] [address], [place] [address] 08 Feb, 2010 [facility] [address] [id number] [address] [place] [address], [place] [address] 02 Feb, 2010 [facility] [address] [id number] [address] [place] [address], [place] [address] Feb, [facility] [address] [id number] [address] [place] [address], [place] [address] Feb, [facility] [address] [id number] [address] [place] [address], [place] [address] 15 Dec, 2009 [facility] [address] [id number] [address] [place] [address], [place] [address] 15 Dec, 2009 [facility] [address] [id number] [address] [place] [address], [place] [address] Oct, [facility] [address] [facility] [id number] [address] [place] [address] Jun, [facility] [address] [facility] [id number] [address] [place] [address] Feb, [facility] [address] [facility] [id number] [address] [place] [address] Feb, [facility] [address] [facility] [id number] [address] [place] [address] Feb, [facility] [address] [facility] [id number] [address] [place] [address] Dec, IMMUNIZATIONS No Known Immunizations SOCIAL HISTORY [...]
--- OUTSIDE RECORDS SUMMARY | 2019-10-19 12:19 | XMS REPORT ---
Author Author Mary Jane Mcginnis Doctor Organization [facility] Address Unknown Phone Unavailable Care Team Providers Care Auto T[employer] Recapper Name Role Phone Migration, Doctor Unavailable Unavailable PROBLEMS Type Condition ICD9-CM Code LIU97-GU Code Onset Dates Condition S tatus SNOMED Code Problem Thyroid follicular adenoma D34 Act phylicia 461665679 Problem History of DVT (deep vein thrombosis) Z86.718 Active 671900672 Problem Factor V Leiden D68.51 Active 3070 42962 Problem group home (current) use of anticoagulants Z79.01 Active 449667525 Problem Hypertriglyceridemia E78.1 Active 229159444 Problem Presence of IVC filter Z95.828 Active 248225111 Problem 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 Active 313455936 Problem Peripheral edema R60.9 Active 271 503284 Problem Excessive daytime sleepiness G47.19 A ctive 815650934718 Problem Gastroesophageal reflux disease, esophagitis pre sence not specified K21.9 Active 310619684 Problem Chronic pain due to trauma G89.21 Act phylicia 288140663 Problem Pelvic pain R10.2 Active 07789024 Problem Subclinical hypothyroidism E03.9 Act phylicia 50956495 Problem Generalized anxiety disorder F41.1 A ctive 154072619 Problem Thyroid nodule E04.1 Active 39296 5005 Problem Morbid obesity E66.01 Active 45737 6002 Problem Moderate episode of recurrent major depressive disorder F33.1 Active 009930775 Problem Vitamin D deficiency E55.9 Active 68749525 ALLERGIES No Information ENCOUNTERS Encounter Location Date Diagnosis [facility] [address] [facility] [id number] [address] [place] [phone] 23 Aug, 2019 [facility] [address] [facility] [id number] [address] [place] [id number] 19 Aug, 2019 Morbid obesity E66.01 [facility] [address] [facility] [id number] [address] [place] [phone] 11 Aug, 2019 Subclinical hypothyroidism E 03.9 [place] [id number] [facility] [id number] [address] [place] [phone] 05 Aug, 2019 Subclinical hypothyroidism E 03.9 and Anemia D64.9 [place] [address] [facility] [id number] [address] [place] [phone] 04 Aug, 2019 [facility] [address] [facility] [id number] [address] [place] [address] Aug, [place] [address] [facility] [id number] [address] [place] [phone] July, [place] [address] [facility] [id number] [address] [place] [phone] July, Subclinical hypothyroidism E 03.9 and Anemia D64.9 [place] [address] [facility] [id number] [address] [place] [phone] July, Thyroid nodule E04.1 ; Hyper triglyceridemia E78.1 ; Excessive daytime sleepiness G47.19 and Vitamin D deficiency E55.9 [place] [address] [facility] [id number] [address] [place] [address] July, Hypertriglyceridemia E78.1 ; Excessive daytime sleepiness G47.19 ; Vitamin D deficiency E55.9 ; Morbid obesity E66.01 ; Peripheral edema R60.9 ; Generalized anxiety disorder F41.1 and Chronic pain due to trauma G89.21 [place] [address] [facility] [id number] [address] [place] [phone] 28 Jun, 2019 [place] [address] [facility] [id number] [address] [place] [phone] 15 Jun, 2019 Back pain with history of sp inal surgery M54.9 [place] [address] [facility] [id number] [address] [place] [phone] 12 Apr, 2019 Back pain with history of sp inal surgery M54.9 [place] [address] [facility] [id number] [address] [place] [phone] 11 Apr, 2019 [place] [address] [place] [id number] [address] [place] [phone] 10 Apr, 2019 Gastroenteritis K52.9 ; Back pain with history of spinal surgery M54.9 ; Dermatofibroma of lower leg, unspecified laterality D23.70 and Morbid obesity E66.01 [facility] [address] [facility] [id number] [address] [place] [phone] Mar, [facility] [address] [facility] [id number] [address] [place] [phone] Jan, [facility] [address] [facility] [id number] [address] [place] [phone] Jan, [place] [address] [facility] [id number] [address] [place] [phone] Dec, Encounter for weight managem ent Z76.89 [place] [address] [facility] [id number] [address] [place] [phone] Dec, Encounter for weight managem ent Z76.89 and Screening mammogram, encounter for Z12.31 [place] [address] [facility] [id number] [address] [place] [phone] Nov, Encounter for weight managem ent Z76.89 [place] [address] [facility] [id number] [address] [place] [phone] Nov, Thyroid nodule E04.1 [place] [address] [facility] [id number] [address] [place] [phone] Nov, Thyroid nodule E04.1 [place] [address] [facility] [id number] [address] [place] [address] Nov, Thyroid nodule E04.1 [place] [address] [facility] [id number] [address] [place] [phone] Oct, Syncope, unspecified syncope type R55 and Encounter for weight management Z76.89 [place] [address] [facility] [id number] [address] [place] [address] Oct, Morbid obesity E66.01 [place] [address] [place] [id number] [address] [place] [phone] Oct, Hypertriglyceridemia E78.1 [facility] [address] [id number] [address] [place] [phone] Oct, [facility] [address] [facility] [id number] [address] [place] [phone] Oct, Hypertriglyceridemia E78.1 [facility] [address] [id number] [address] [place] [address] Sep, Hypertriglyceridemia E78.1 a nd Vitamin D deficiency E55.9 [facility] [address] [id number] [address] [place] [phone] Sep, [facility] [address] [facility] [id number] [address] [place] [address] Sep, Morbid obesity E66.01 ; Mode rate episode of recurrent major depressive disorder F33.1 ; Hypertriglyceridemia E78.1 and Vitamin D deficiency E55.9 [facility] [address] [id number] [address] [place] [phone] Aug, [facility] [address] [facility] [id number] [address] [place] [phone] July, [facility] [address] [facility] [id number] [address] [place] [phone] July, [facility] [address] [facility] [id number] [address] [place] [phone] Jun, [facility] [address] [id number] [address] [place] [phone] Jun, [facility] [address] [facility] [id number] [address] [place] [address] Jun, Closed compression fracture of L3 lumbar vertebra with routine healing, subsequent encounter S32.030D and Drug-induced constipation K59.03 [facility] [address] [facility] [id number] [address] [place] [phone] Jun, [facility] [address] [facility] [id number] [address] [place] [phone] Jun, [facility] [address] [facility] [id number] [address] [place] [address] Apr, [facility] [address] [facility] [id number] [address] [place] [address] Apr, Morbid obesity E66.01 [facility] [address] [facility] [id number] [address] [place] [address] Apr, Morbid obesity E66.01 ; Hype rtriglyceridemia E78.1 ; Gastroesophageal reflux disease, esophagitis presence not specified K21.9 and Joint pain M25.50 [facility] [address] [facility] [id number] [address] [place] [phone] Feb, [facility] [address] [phone] Feb, [facility] [address] [place] [id number] [address] [place] [phone] Jan, Acute bacterial conjunctivit is H10.30 [facility] [address] [place] [id number] [address] [place] [phone] 08 Dec, 2017 [facility] [address] [place] [id number] [address] [place] [phone] 04 Dec, 2017 [facility] [id number] [place] [phone] 17 Nov, 2017 [facility] [address] [facility] [id number] [address] [place] [phone] 07 Nov, 2017 Obstructive sleep apnea G47. 33 ; Morbid obesity E66.01 and Gastroesophageal reflux disease, esophagitis presence not specified K21.9 [facility] [address] [id number] [address] [place] [id number] 06 Nov, 2017 Encounter for examination of eyes and vision without abnormal findings Z01.00 [facility] [address] [facility] [id number] [address] [place] [address] Oct, Thyroid nodule E04.1 and Scr eening for breast cancer Z12.31 [facility] [address] [facility] [id number] [address] [place] [address] Oct, History of DVT (deep vein th rombosis) Z86.718 ; Thyroid nodule E04.1 and Gastroesophageal reflux disease, esophagitis presence not specified K21.9 [facility] [address] [facility] [id number] [address] [place] [address] Oct, [facility] [address] [id number] [address] [place] [address] Sep, [place] [address] [facility] [id number] [address] [place] [phone] Aug, [place] [address] [place] [id number] [address] [place] [address] Aug, [place] [address] [place] [id number] [address] [place] [address] Aug, Acute pain of left shoulder M25.512 and Thyroid nodule E04.1 [place] [address] [place] [id number] [address] [place] [address] July, Superior glenoid labrum lesi on of left shoulder, subsequent encounter S43.432D [place] [address] [place] [id number] [address] [place] [address] Jun, History of DVT (deep vein th rombosis) Z86.718 [facility] [address] [facility] [id number] [address] [place] [address] Jun, History of DVT (deep vein th rombosis) Z86.718 [place] [address] [facility] [id number] [address] [place] [address] Jun, Impingement syndrome, should er, left M75.42 [facility] [address] [place] [id number] [address] [place] [address] May, Subacromial bursitis of left shoulder joint M75.52 [place] [address] [id number] [address] [place] [address] May, [place] [address] [id number] [address] [place] [address] May, Hypertriglyceridemia E78.1 ; 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 specialist (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.01 and Excessive daytime sleepiness G47.19 [place] [address] [id number] [address] [place] [address] May, History of DVT (deep vein th rombosis) Z86.718 ; Generalized anxiety disorder F41.1 ; Hypertriglyceridemia E78.1 ; group home (current) use of anticoagulants Z79.01 ; Subacromial bursitis of left shoulder joint M75.52 and Excessive daytime sleepiness G47.19 [place] [address] [id number] [address] [place] [address] May, [place] [address] [id number] [address] [place] [address] May, 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 specialist (current) use of a nticoagulants Z79.01 [place] [address] [id number] [address] [place] [address] Apr, 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 specialist (current) use of a nticoagulants Z79.01 [place] [address] [id number] [address] [place] [address] Apr, 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 specialist (current) use of a nticoagulants Z79.01 [place] [address] [id number] [address] [place] [address] Apr, 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 specialist (current) use of a nticoagulants Z79.01 [place] [address] [id number] [address] [place] [phone] Apr, [place] [address] [id number] [address] [place] [phone] Apr, group home (current) use of a nticoagulants Z79.01 [facility] [address] [id number] [address] [place] [id number] 13 Apr, 2017 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 specialist (current) use of a nticoagulants Z79.01 [facility] [address] [id number] [address] [place] [address] Apr, group home (current) use of a nticoagulants Z79.01 [facility] [address] [id number] [address] [place] [phone] Apr, group home (current) use of a nticoagulants Z79.01 [facility] [address] [id number] [address] [place] [address] Apr, group home (current) use of a nticoagulants Z79.01 [facility] [address] [id number] [address] [place] [address] Apr, 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 specialist (current) use of a nticoagulants Z79.01 [facility] [address] [id number] [address] [place] [address] Mar, 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 specialist (current) use of a nticoagulants Z79.01 [facility] [address] [id number] [address] [place] [phone] Mar, [facility] [address] [id number] [address] [place] [phone] Mar, group home (current) use of a nticoagulants Z79.01 [facility] [address] [id number] [address] [place] [id number] Jan, Dental examination Z01.20 [facility] [address] [id number] [address] [place] [address] [id number] Jan, [facility] [address] [id number] [address] [place] [address] Jan, 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 specialist (current) use of a nticoagulants Z79.01 [facility] [address] [id number] [address] [place] [phone] Jan, History of DVT (deep vein th rombosis) Z86.718 [facility] [address] [id number] [address] [place] [address] Jan, Generalized anxiety disorder F41.1 and Peripheral edema R60.9 [facility] [address] [id number] [address] [place] [address] Nov, History of DVT (deep vein th rombosis) Z86.718 [facility] [address] [id number] [address] [place] [address] Nov, group home (current) use of a nticoagulants Z79.01 [facility] [address] [facility] [id number] [address] [place] [address] Nov, Acute non-recurrent maxillar y sinusitis J01.00 [facility] [address] [id number] [address] [place] [address] Oct, 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 specialist (current) use of a nticoagulants Z79.01 [place] [address] [facility] [id number] [address] [place] [address] Oct, Personal history of venous t hrombosis and embolism Z86.718 [facility] [address] [id number] [address] [place] [address] Sep, [facility] [address] [id number] [address] [place] [address] Sep, Personal history of venous t hrombosis and embolism Z86.718 [facility] [address] [facility] [id number] [address] [place] [address] Sep, 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 specialist (current) use of a nticoagulants Z79.01 [facility] [address] [facility] [id number] [address] [place] [address] Sep, 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 specialist (current) use of a nticoagulants Z79.01 [place] [address] [facility] [id number] [address] [place] [address] Sep, Generalized anxiety disorder F41.1 and History of DVT (deep vein thrombosis) Z86.718 [place] [address] [place] [id number] [address] [place] [address] Aug, History of DVT (deep vein th rombosis) Z86.718 ; Generalized anxiety disorder F41.1 ; 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 specialist (current) use of anticoagulants Z79.01 ; Pelvic pain R10.2 ; Hypertriglyceridemia E78.1 ; Excessive daytime sleepiness G47.19 ; Colon cancer screening Z12.11 ; Screening for breast cancer Z12.39 ; Peripheral edema R60.9 and Gastroesophageal reflux disease, esophagitis presence not specified K21.9 [place] [address] [place] [id number] [address] [place] [phone] Aug, [place] [address] [address] July, [place] [address] [place] [id number] [place] [address] July, History of DVT (deep vein th rombosis) Z86.718 [place] [address] [place] [id number] [address] [place] [address] Jun, Generalized anxiety disorder F41.1 [place] [address] [place] [id number] [address] [place] [address] Jun, History of DVT (deep vein th rombosis) Z86.718 [place] [address] [place] [id number] [address] [place] [address] Jun, History of DVT (deep vein th rombosis) Z86.718 [place] [address] [place] [id number] [address] [place] [address] Jun, History of DVT (deep vein th rombosis) Z86.718 [place] [address] [place] [id number] [place] [address] Jun, History of DVT (deep vein th rombosis) Z86.718 [facility] [address] [facility] [id number] [address] [place] [address] May, History of DVT (deep vein th rombosis) Z86.718 [facility] [address] [facility] [id number] [address] [place] [address] May, 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 specialist (current) use of a nticoagulants Z79.01 [facility] [address] [facility] [id number] [address] [place] [address] May, group home (current) use of a nticoagulants Z79.01 [place] [address] [facility] [id number] [address] [place] [address] May, History of DVT (deep vein th rombosis) Z86.718 [facility] [address] [facility] [id number] [address] [place] [address] Apr, Bacterial conjunctivitis of left eye H10.9 and H/O motion sickness Z87.898 [place] [address] [facility] [id number] [address] [place] [phone] 24 Apr, 2016 History of DVT (deep vein th rombosis) Z86.718 [facility] [address] [facility] [id number] [address] [place] [address] Apr, History of DVT (deep vein th rombosis) Z86.718 [facility] [address] [facility] [id number] [address] [place] [phone] 15 Apr, 2016 History of DVT (deep vein th rombosis) Z86.718 [facility] [address] [facility] [id number] [address] [place] [phone] 14 Apr, 2016 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 specialist (current) use of a nticoagulants Z79.01 [place] [address] [facility] [id number] [address] [place] [phone] Mar, [facility] [address] [id number] [address] [place] [phone] Mar, group home (current) use of a nticoagulants Z79.01 [facility] [address] [id number] [address] [place] [address] Mar, Hypertriglyceridemia E78.1 a nd 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 specialist (current) use of anticoagulants Z79.01 [facility] [address] [id number] [address] [place] [address] Feb, group home (current) use of a nticoagulants Z79.01 [facility] [address] [id number] [address] [place] [phone] Feb, group home (current) use of a nticoagulants Z79.01 [facility] [address] [id number] [address] [place] [address] Feb, 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 specialist (current) use of a nticoagulants Z79.01 [facility] [address] [id number] [address] [place] [phone] Dec, [facility] [address] [id number] [address] [place] [phone] Nov, [facility] [address] [id number] [address] [place] [phone] Nov, History of DVT (deep vein th rombosis) Z86.718 ; Tremulousness R25.1 ; Generalized anxiety disorder F41.1 ; Peripheral edema R60.9 and Hypertriglyceridemia E78.1 [facility] [address] [id number] [address] [place] [phone] Oct, History of DVT (deep vein th rombosis) Z86.718 [facility] [address] [id number] [address] [place] [phone] Oct, [facility] [address] [id number] [address] [place] [phone] Sep, History of DVT (deep vein th rombosis) Z86.718 [facility] [address] [id number] [address] [place] [phone] Sep, 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 specialist (current) use of a nticoagulants Z79.01 [facility] [address] [id number] [address] [place] [phone] July, [facility] [address] [id number] [address] [place] [phone] July, 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 specialist (current) use of a nticoagulants Z79.01 [place] [address] [id number] [address] [place] [phone] July, group home (current) use of a nticoagulants Z79.01 [place] [address] [id number] [address] [place] [phone] Jun, group home (current) use of a nticoagulants Z79.01 [facility] [address] [id number] [address] [place] [phone] Jun, Coccyx pain M53.3 ; Encounte r for therapeutic drug level monitoring Z51.81 and 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 specialist current use 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.01 [place] [id number] [id number] [address] [place] [phone] May, Abnormal mammogram R92.8 [facility] [address] [id number] [address] [place] [phone] May, [facility] [place] [id number] [id number] [address] [place] [phone] May, Acute vaginitis N76.0 and En counter for other screening for malignant neoplasm of breast Z12.39 [place] [address] [id number] [address] [place] [phone] Apr, [place] [address] [place] [facility] [id number] [address] [place] [address] Apr, [place] [id number] [id number] [address] [place] [address] Apr, Peripheral edema R60.9 [facility] [address] [id number] [address] [place] [address] Apr, 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 specialist (current) use of a nticoagulants Z79.01 [facility] [address] [id number] [address] [place] [address] Apr, Peripheral edema R60.9 and L jose martin term (current) 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 Z79.01 [facility] [address] [id number] [address] [place] [address] Apr, group home (current) use of a nticoagulants Z79.01 [place] [id number] [id number] [address] [place] [address] Apr, [facility] [address] [id number] [address] [place] [address] Apr, 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 specialist (current) use of a nticoagulants Z79.01 [facility] [address] [id number] [address] [place] [address] Apr, Peripheral edema R60.9 [facility] [address] [id number] [address] [place] [address] Mar, group home (current) use of a nticoagulants Z79.01 [facility] [address] [id number] [address] [place] [address] Mar, group home (current) use of a nticoagulants Z79.01 and Hypertriglyceridemia E78.1 [facility] [address] [id number] [address] [place] [address] Mar, group home (current) use of a nticoagulants Z79.01 [facility] [address] [id number] [address] [place] [address] Mar, group home (current) use of a nticoagulants Z79.01 [place] [address] [facility] [id number] [address] [place] [address] Mar, [place] [address] [id number] [address] [place] [address] Mar, group home (current) use of a nticoagulants Z79.01 ; Hypertriglyceridemia E78.1 ; Personal history of venous thrombosis and embolism Z86.718 and Lump R22.9 [place] [address] [id number] [address] [place] [address] Mar, Personal history of venous t hrombosis and embolism Z86.718 [place] [address] [id number] [address] [place] [address] Mar, Personal history of venous t hrombosis and embolism Z86.718 [place] [address] [facility] [id number] [address] [place] [address] Mar, [place] [address] [id number] [address] [place] [address] Dec, Personal history of venous t hrombosis and embolism Z86.718 [place] [address] [id number] [address] [place] [address] Dec, Personal history of venous t hrombosis and embolism V12.51 [place] [address] [facility] [id number] [address] [place] [address] Nov, Personal history of venous t hrombosis and embolism V12.51 [place] [address] [id number] [address] [place] [address] 25 Nov, 2014 Personal history of venous t hrombosis and embolism V12.51 [place] [address] [facility] [id number] [address] [place] [address] 17 Nov, 2014 Personal history of venous t hrombosis and embolism V12.51 [place] [address] [facility] [id number] [address] [place] [address] Nov, Personal history of venous t hrombosis and embolism V12.51 [facility] [address] [id number] [address] [place] [address] Nov, [facility] [address] [id number] [address] [place] [address] Oct, Dysuria 788.1 [facility] [address] [id number] [address] [place] [address] Oct, Personal history of venous t hrombosis and embolism V12.51 [facility] [address] [id number] [address] [place] [address] Oct, [facility] [address] [id number] [address] [place] [address] Oct, Personal history of venous t hrombosis and embolism V12.51 [facility] [address] [id number] [address] [place] [address] Sep, Personal history of venous t hrombosis and embolism V12.51 [facility] [address] [id number] [address] [place] [address] Sep, Personal history of venous t hrombosis and embolism V12.51 [facility] [address] [id number] [address] [place] [address] Aug, Personal history of venous t hrombosis and embolism V12.51 [facility] [address] [id number] [address] [place] [address] Aug, Personal history of venous t hrombosis and embolism V12.51 [facility] [address] [id number] [address] [place] [address] Aug, Personal history of venous t hrombosis and embolism V12.51 [facility] [address] [id number] [address] [place] [address] July, Generalized anxiety disorder 300.02 ; Abdominal pain, left lower quadrant 789.04 and Personal history of venous thrombosis and embolism V12.51 [facility] [address] [id number] [address] [place] [address], [place] [address] 14 Jun, [address] [facility] [address] [id number] [address] [place] [address], [place] [address] Jun, [facility] [address] [id number] [address] [place] [address], [place] [address] May, [facility] [address] [id number] [address] [place] [address], [place] [address] May, [facility] [address] [id number] [address] [place] [address], [place] [address] May, [facility] [address] [id number] [address] [place] [address], [place] [address] May, [facility] [address] [id number] [address] [place] [address], [place] [address] May, [facility] [address] [id number] [address] [place] [address] May, [facility] [address] [id number] [address] [place] [address], [place] [address] May, [facility] [address] [id number] [address] [place] [address] May, [facility] [address] [id number] [address] [place] [address], [place] [address] Apr, [facility] [address] [id number] [address] [place] [address] Apr, [facility] [address] [id number] [address] [place] [address], [place] [address] Apr, [facility] [address] [id number] [address] [place] [address], [place] [address] Apr, [facility] [address] [id number] [address] [place] [address], [place] [address] Apr, [facility] [address] [id number] [address] [place] [address], [place] [address] Mar, [facility] [address] [id number] [address] [place] [address], [place] [address] Mar, [facility] [address] [id number] [address] [place] [address], [place] [address] Mar, [facility] [address] [id number] [address] [place] [address], [place] [address] Mar, [facility] [address] [id number] [address] [place] [address], [place] [address] Mar, [facility] [address] [id number] [address] [place] [address], [place] [address] Mar, [facility] [address] [id number] [address] [place] [address], [place] [address] Feb, [facility] [address] [id number] [address] [place] [address], [place] [address] Feb, [facility] [address] [id number] [address] [place] [address], [place] [address] Feb, [facility] [address] [id number] [address] [place] [address], [place] [address] Feb, [facility] [address] [id number] [address] [place] [address], [place] [address] Feb, [facility] [address] [id number] [address] [place] [address], [place] [address] Feb, [facility] [address] [id number] [address] [place] [address], [place] [address] Feb, [facility] [address] [id number] [address] [place] [address], [place] [address] Feb, [facility] [address] [id number] [address] [place] [address], [place] [address] Feb, [facility] [address] [id number] [address] [place] [address], [place] [address] Feb, [facility] [address] [id number] [address] [place] [address], [place] [address] Jan, [facility] [address] [id number] [address] [place] [address], [place] [address] Jan, [facility] [address] [id number] [address] [place] [address], [place] [address] Jan, [facility] [address] [id number] [address] [place] [address], [place] [address] Jan, [facility] [address] [id number] [address] [place] [address], [place] [address] Jan, [facility] [address] [id number] [address] [place] [address], [place] [address] Jan, [facility] [address] [id number] [address] [place] [address], [place] [address] Jan, [facility] [address] [id number] [address] [place] [address], [place] [address] Jan, [facility] [address] [id number] [address] [place] [address], [place] [address] Jan, [facility] [address] [id number] [address] [place] [address], [place] [address] Jan, [facility] [address] [id number] [address] [place] [address], [place] [address] Dec, [facility] [address] [id number] [address] [place] [address], [place] [address] Dec, [facility] [address] [id number] [address] [place] [address], [place] [address] Dec, [facility] [address] [id number] [address] [place] [address], [place] [address] Dec, [facility] [address] [id number] [address] [place] [address], [place] [address] Dec, [facility] [address] [id number] [address] [place] [address], [place] [address] Dec, [facility] [address] [id number] [address] [place] [address], [place] [address] Dec, [facility] [address] [id number] [address] [place] [address], [place] [address] Dec, [facility] [address] [id number] [address] [place] [address], [place] [address] Dec, [facility] [address] [id number] [address] [place] [address], [place] [address] Dec, [facility] [address] [id number] [address] [place] [address], [place] [address] Dec, [facility] [address] [id number] [address] [place] [address], [place] [address] Dec, [facility] [address] [id number] [address] [place] [address], [place] [address] Dec, [facility] [address] [id number] [address] [place] [address], [place] [address] Dec, [facility] [address] [id number] [address] [place] [address], [place] [address] Dec, [facility] [address] [id number] [address] [place] [address], [place] [address] 30 Nov, 2013 [facility] [address] [id number] [address] [place] [address], [place] [address] 30 Nov, 2013 [facility] [address] [id number] [address] [place] [address], [place] [address] 26 Nov, 2013 [facility] [address] [id number] [address] [place] [address], [place] [address] 26 Nov, 2013 [facility] [address] [id number] [address] [place] [address], [place] [address] 24 Nov, 2013 [facility] [address] [id number] [address] [place] [address], [place] [address] 24 Nov, 2013 [facility] [address] [id number] [facility] [place] [address] 23 Sep, 2013 [facility] [address] [id number] [facility] [place] [address] 23 Sep, 2013 [facility] [address] [id number] [facility] [place] [address] 18 Nov, 2013 [facility] [address] [id number] [address] [place] [address], [place] [address] 18 Nov, 2013 [facility] [address] [id number] [facility] [place] [address] 17 Nov, 2013 [facility] [address] [id number] [address] [place] [address], [place] [address] 17 Nov, [address] [facility] [address] [id number] [address] [place] [address], [place] [address] 11 Nov, [address] [facility] [address] [id number] [address] [place] [address], [place] [address] 11 Nov, [address] [facility] [address] [id number] [address] [place] [address], [place] [address] 10 Nov, [address] [facility] [address] [id number] [address] [place] [address], [place] [address] 10 Nov, [address] [facility] [address] [id number] [address] [place] [address], [place] [address] 08 Nov, [address] [facility] [address] [id number] [address] [place] [address], [place] [address] 08 Nov, [address] [facility] [address] [id number] [address] [place] [address], [place] [address] 22 Sep, 2013 [facility] [address] [id number] [address] [place] [address], [place] [address] Sep, [address] [facility] [address] [id number] [address] [place] [address], [place] [address] Sep, [address] [facility] [address] [id number] [address] [place] [address], [place] [address] Sep, [facility] [address] [id number] [facility] [place] [address] Sep, [facility] [address] [id number] [facility] [place] [address] Sep, [facility] [address] [id number] [facility] [place] [address] Aug, [facility] [address] [id number] [address] [place] [address], [place] [address] Aug, [facility] [address] [id number] [address] [place] [address], [place] [address] Aug, [facility] [address] [id number] [address] [place] [address], [place] [address] Aug, [facility] [address] [id number] [address] [place] [address], [place] [address] Aug, [facility] [address] [id number] [address] [place] [address], [place] [address] Aug, [facility] [address] [id number] [address] [place] [address], [place] [address] Aug, [facility] [address] [id number] [address] [place] [address], [place] [address] Aug, [facility] [address] [id number] [address] [place] [address], [place] [address] Aug, [facility] [address] [id number] [address] [place] [address], [place] [address] Aug, [facility] [address] [id number] [address] [place] [address], [place] [address] Aug, [facility] [address] [id number] [address] [place] [address], [place] [address] July, [facility] [address] [id number] [address] [place] [address], [place] [address] July, [facility] [address] [id number] [address] [place] [address], [place] [address] Jun, [facility] [address] [id number] [address] [place] [address], [place] [address] Jun, [facility] [address] [id number] [address] [place] [address], [place] [address] 18 Jun, 2013 [facility] [address] [id number] [address] [place] [address], [place] [address] Jun, [facility] [address] [id number] [address] [place] [address], [place] [address] Jun, [facility] [address] [id number] [address] [place] [address], [place] [address] Jun, [facility] [address] [id number] [address] [place] [address], [place] [address] Jun, [facility] [address] [id number] [address] [place] [address], [place] [address] Jun, [facility] [address] [id number] [address] [place] [address], [place] [address] Jun, [facility] [address] [id number] [address] [place] [address], [place] [address] Jun, [facility] [address] [id number] [address] [place] [address], [place] [address] Jun, [facility] [address] [id number] [address] [place] [address], [place] [address] Jun, [facility] [address] [id number] [address] [place] [address], [place] [address] May, [facility] [address] [id number] [address] [place] [address], [place] [address] May, [facility] [address] [id number] [address] [place] [address], [place] [address] May, [facility] [address] [id number] [address] [place] [address], [place] [address] May, [facility] [address] [id number] [facility] [place] [address] May, [facility] [address] [id number] [address] [place] [address], [place] [address] May, [facility] [address] [id number] [address] [place] [address], [place] [address] May, [facility] [address] [id number] [address] [place] [address], [place] [address] May, [facility] [address] [id number] [address] [place] [address], [place] [address] May, [facility] [address] [id number] [address] [place] [address], [place] [address] May, [facility] [address] [id number] [address] [place] [address], [place] [address] May, [facility] [address] [id number] [address] [place] [address], [place] [address] May, [facility] [address] [id number] [address] [place] [address], [place] [address] Apr, [facility] [address] [id number] [address] [place] [address], [place] [address] Apr, [facility] [address] [id number] [address] [place] [address], [place] [address] Apr, [facility] [address] [id number] [address] [place] [address], [place] [address] Apr, [facility] [address] [id number] [address] [place] [address], [place] [address] Apr, [facility] [address] [id number] [address] [place] [address], [place] [address] Apr, [facility] [address] [id number] [address] [place] [address], [place] [address] Apr, [facility] [address] [id number] [address] [place] [address] Apr, [facility] [address] [id number] [address] [place] [address], [place] [address] Apr, [facility] [address] [id number] [address] [place] [address], [place] [address] Apr, [address] [facility] [address] [id number] [address] [place] [address], [place] [address] Apr, 2013 [facility] [address] [id number] [address] [place] [address], [place] [address] Apr, [facility] [address] [id number] [address] [place] [address], [place] [address] Apr, [facility] [address] [id number] [address] [place] [address], [place] [address] Apr, [facility] [address] [id number] [address] [place] [address], [place] [address] Apr, [facility] [address] [id number] [address] [place] [address], [place] [address] Apr, [facility] [address] [id number] [address] [place] [address], [place] [address] Apr, [facility] [address] [id number] [address] [place] [address], [place] [address] Jan, [facility] [address] [id number] [address] [place] [address], [place] [address] 13 Jan, [address] [facility] [address] [id number] [address] [place] [address], [place] [address] 08 Jan, 2013 [facility] [address] [id number] [address] [place] [address], [place] [address] Jan, [facility] [address] [id number] [address] [place] [address], [place] [address] Jan, [facility] [address] [id number] [address] [place] [address], [place] [address] Jan, [facility] [address] [id number] [address] [place] [address], [place] [address] Jan, [facility] [address] [id number] [address] [place] [address], [place] [address] Dec, [facility] [address] [id number] [address] [place] [address], [place] [address] Dec, [facility] [address] [id number] [address] [place] [address], [place] [address] Dec, [facility] [address] [id number] [address] [place] [address], [place] [address] Nov, [facility] [address] [id number] [address] [place] [address], [place] [address] Nov, [facility] [address] [id number] [address] [place] [address], [place] [address] Nov, [facility] [address] [id number] [address] [place] [address], [place] [address] Nov, [facility] [address] [id number] [address] [place] [address], [place] [address] Oct, [facility] [address] [id number] [address] [place] [address], [place] [address] Oct, [facility] [address] [id number] [address] [place] [address], [place] [address] Oct, [facility] [address] [id number] [address] [place] [address], [place] [address] Oct, [facility] [address] [id number] [address] [place] [address], [place] [address] Oct, [facility] [address] [id number] [address] [place] [address], [place] [address] Sep, [facility] [address] [id number] [address] [place] [address], [place] [address] Sep, [facility] [address] [id number] [address] [place] [address], [place] [address] Sep, [facility] [address] [id number] [address] [place] [address], [place] [address] Sep, [facility] [address] [id number] [address] [place] [address], [place] [address] Sep, [facility] [address] [id number] [address] [place] [address], [place] [address] Sep, [facility] [address] [id number] [address] [place] [address], [place] [address] Sep, [facility] [address] [id number] [address] [place] [address], [place] [address] Aug, [facility] [address] [id number] [address] [place] [address], [place] [address] Aug, [facility] [facility] [address] [id number] [address] [place] [address], [place] [address] July, [facility] [address] [id number] [address] [place] [address], [place] [address] Jun, [facility] [address] [id number] [address] [place] [address], [place] [address] Jun, [facility] [address] [id number] [address] [place] [address], [place] [address] Jun, [facility] [address] [id number] [address] [place] [address], [place] [address] Apr, [facility] [address] [id number] [address] [place] [address], [place] [address] Apr, [facility] [address] [id number] [address] [place] [address], [place] [address] Apr, [facility] [address] [id number] [address] [place] [address], [place] [address] Mar, [facility] [address] [id number] [address] [place] [address], [place] [address] Mar, [facility] [address] [id number] [address] [place] [address], [place] [address] 2012 [facility] [address] [id number] [address] [place] [address], [place] [address] Mar, [facility] [address] [id number] [address] [place] [address], [place] [address] Mar, [facility] [address] [id number] [address] [place] [address], [place] [address] 14 Feb, [address] [facility] [address] [id number] [address] [place] [address], [place] [address] 14 Feb, 2012 [facility] [address] [id number] [address] [place] [address], [place] [address] Jan, [facility] [address] [id number] [address] [place] [address], [place] [address] Jan, [facility] [address] [id number] [address] [place] [address], [place] [address] Jan, [facility] [address] [id number] [address] [place] [address], [place] [address] Jan, [facility] [address] [id number] [address] [place] [address], [place] [address] Jan, [facility] [address] [id number] [address] [place] [address], [place] [address] Jan, [facility] [address] [id number] [address] [place] [address], [place] [address] Jan, [facility] [address] [id number] [address] [place] [address], [place] [address] Dec, [facility] [address] [id number] [address] [place] [address], [place] [address] Dec, [facility] [address] [id number] [address] [place] [address], [place] [address] 30 Dec, 2011 [facility] [address] [id number] [address] [place] [address], [place] [address] Dec, [facility] [address] [id number] [address] [place] [address], [place] [address] Dec, [facility] [address] [id number] [address] [place] [address], [place] [address] Dec, [facility] [address] [id number] [address] [place] [address], [place] [address] Dec, [facility] [address] [id number] [address] [place] [address], [place] [address] Dec, [facility] [address] [id number] [address] [place] [address], [place] [address] Dec, [facility] [address] [id number] [address] [place] [address], [place] [address] Dec, [facility] [address] [id number] [address] [place] [address], [place] [address] Oct, [facility] [address] [id number] [address] [place] [address], [place] [address] Oct, [facility] [address] [id number] [address] [place] [address], [place] [address] Aug, [facility] [address] [id number] [address] [place] [address], [place] [address] Aug, [facility] [address] [id number] [address] [place] [address], [place] [address] July, [facility] [address] [id number] [address] [place] [address], [place] [address] Jun, [facility] [address] [id number] [address] [place] [address], [place] [address] Jun, [facility] [address] [id number] [address] [place] [address], [place] [address] May, [facility] [address] [id number] [address] [place] [address], [place] [address] Apr, [facility] [address] [id number] [address] [place] [address], [place] [address] 16 Apr, [address] [facility] [address] [id number] [address] [place] [address], [place] [address] 19 Mar, [address] [facility] [address] [id number] [address] [place] [address], [place] [address] 16 Mar, 2011 [facility] [address] [id number] [address] [place] [address], [place] [address] 19 Feb, 2011 [facility] [address] [id number] [address] [place] [address], [place] [address] 15 Feb, [address] [facility] [address] [id number] [address] [place] [address], [place] [address] 13 Feb, 2011 [facility] [address] [id number] [address] [place] [address], [place] [address] 13 Feb, 2011 [facility] [address] [id number] [address] [place] [address], [place] [address] Jan, [facility] [address] [id number] [address] [place] [address], [place] [address] 17 Dec, 2010 [facility] [address] [id number] [address] [place] [address], [place] [address] 08 Feb, 2010 [facility] [address] [id number] [address] [place] [address], [place] [address] 02 Feb, 2010 [facility] [address] [id number] [address] [place] [address], [place] [address] Feb, [facility] [address] [id number] [address] [place] [address], [place] [address] Feb, [facility] [address] [id number] [address] [place] [address], [place] [address] 15 Dec, 2009 [facility] [address] [id number] [address] [place] [address], [place] [address] 15 Dec, [address] [facility] [address] [id number] [address] [place] [address], [place] [address] Oct, [facility] [address] [facility] [id number] [address] [place] [address] Jun, [facility] [address] [facility] [id number] [address] [place] [address] Feb, [facility] [address] [facility] [id number] [address] [place] [address] Feb, [facility] [address] [facility] [id number] [address] [place] [address] Feb, [facility] [address] [facility] [id number] [address] [place] [address] Dec, IMMUNIZATIONS No Known Immunizations SOCIAL HISTORY [...]
--- OUTSIDE RECORDS SUMMARY | 2019-10-19 12:19 | XMS REPORT ---
Author Author Mary Jane Mcginnis Doctor Organization [facility] Address Unknown Phone Unavailable Care Team Providers Care Pantry Chef Name Role Phone Migration, Doctor Unavailable Unavailable PROBLEMS Type Condition ICD9-CM Code UQG74-DL Code Onset Dates Condition S tatus SNOMED Code Problem Thyroid follicular adenoma D34 Act phylicia 655881383 Problem History of DVT (deep vein thrombosis) Z86.718 Active 524851191 Problem Factor V Leiden D68.51 Active 3070 62664 Problem retirement (current) use of anticoagulants Z79.01 Active 062650277 Problem Hypertriglyceridemia E78.1 Active 292848569 Problem Presence of IVC filter Z95.828 Active 976190614 Problem 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 Active 544333584 Problem Peripheral edema R60.9 Active 271 882150 Problem Excessive daytime sleepiness G47.19 A ctive 614442355961 Problem Gastroesophageal reflux disease, esophagitis pre sence not specified K21.9 Active 355551714 Problem Chronic pain due to trauma G89.21 Act phylicia 738312993 Problem Pelvic pain R10.2 Active 44104578 Problem Subclinical hypothyroidism E03.9 Act phylicia 66539549 Problem Generalized anxiety disorder F41.1 A ctive 132791396 Problem Thyroid nodule E04.1 Active 59753 5005 Problem Morbid obesity E66.01 Active 91320 6002 Problem Moderate episode of recurrent major depressive disorder F33.1 Active 584173716 Problem Vitamin D deficiency E55.9 Active 55532623 ALLERGIES No Information ENCOUNTERS Encounter Location Date Diagnosis [facility] [address] [facility] [id number] [address] [place] [phone] 23 Aug, 2019 [facility] [address] [facility] [id number] [address] [place] [id number] 19 Aug, 2019 Morbid obesity E66.01 [facility] [address] [facility] [id number] [address] [place] [phone] 11 Aug, 2019 Subclinical hypothyroidism E 03.9 [place] [id number] [facility] [id number] [address] [place] [phone] 05 Aug, 2019 Subclinical hypothyroidism E 03.9 and Anemia D64.9 [place] [address] [facility] [id number] [address] [place] [phone] 04 Aug, 2019 [facility] [address] [facility] [id number] [address] [place] [phone] Aug, [place] [address] [facility] [id number] [address] [place] [phone] July, [place] [address] [facility] [id number] [address] [place] [address] July, Subclinical hypothyroidism E 03.9 and Anemia D64.9 [place] [address] [facility] [id number] [address] [place] [address] July, Thyroid nodule E04.1 ; Hyper triglyceridemia E78.1 ; Excessive daytime sleepiness G47.19 and Vitamin D deficiency E55.9 [place] [address] [facility] [id number] [address] [place] [address] July, Hypertriglyceridemia E78.1 ; Excessive daytime sleepiness G47.19 ; Vitamin D deficiency E55.9 ; Morbid obesity E66.01 ; Peripheral edema R60.9 ; Generalized anxiety disorder F41.1 and Chronic pain due to trauma G89.21 [place] [address] [facility] [id number] [address] [place] [phone] 28 Jun, 2019 [place] [address] [facility] [id number] [address] [place] [id number] 15 Jun, 2019 Back pain with history of sp inal surgery M54.9 [place] [address] [facility] [id number] [address] [place] [phone] 12 Apr, 2019 Back pain with history of sp inal surgery M54.9 [place] [address] [facility] [id number] [address] [place] [address] 11 Apr, 2019 [place] [address] [place] [id number] [address] [place] [id number] 10 Apr, 2019 Gastroenteritis K52.9 ; Back pain with history of spinal surgery M54.9 ; Dermatofibroma of lower leg, unspecified laterality D23.70 and Morbid obesity E66.01 [facility] [address] [facility] [id number] [address] [place] [id number] Mar, [facility] [address] [facility] [id number] [address] [place] [phone] Jan, [facility] [address] [facility] [id number] [address] [place] [phone] Jan, [place] [address] [facility] [id number] [address] [place] [phone] Dec, Encounter for weight managem ent Z76.89 [place] [address] [facility] [id number] [address] [place] [address] Dec, Encounter for weight managem ent Z76.89 and Screening mammogram, encounter for Z12.31 [place] [address] [facility] [id number] [address] [place] [phone] Nov, Encounter for weight managem ent Z76.89 [place] [address] [facility] [id number] [address] [place] [phone] Nov, Thyroid nodule E04.1 [place] [address] [facility] [id number] [address] [place] [id number] Nov, Thyroid nodule E04.1 [place] [address] [facility] [id number] [address] [place] [address] Nov, Thyroid nodule E04.1 [place] [address] [facility] [id number] [address] [place] [phone] Oct, Syncope, unspecified syncope type R55 and Encounter for weight management Z76.89 [place] [address] [facility] [id number] [address] [place] [address] Oct, Morbid obesity E66.01 [place] [address] [place] [id number] [address] [place] [phone] Oct, Hypertriglyceridemia E78.1 [facility] [address] [id number] [address] [place] [address] Oct, [facility] [address] [facility] [id number] [address] [place] [address] Oct, Hypertriglyceridemia E78.1 [facility] [address] [id number] [address] [place] [phone] Sep, Hypertriglyceridemia E78.1 a nd Vitamin D deficiency E55.9 [facility] [address] [id number] [address] [place] [phone] Sep, [facility] [address] [facility] [id number] [address] [place] [address] Sep, Morbid obesity E66.01 ; Mode rate episode of recurrent major depressive disorder F33.1 ; Hypertriglyceridemia E78.1 and Vitamin D deficiency E55.9 [facility] [address] [id number] [address] [place] [phone] Aug, [facility] [address] [facility] [id number] [address] [place] [phone] July, [facility] [address] [facility] [id number] [address] [place] [address] July, [facility] [address] [facility] [id number] [address] [place] [phone] Jun, [facility] [address] [id number] [address] [place] [phone] Jun, [facility] [address] [facility] [id number] [address] [place] [phone] Jun, Closed compression fracture of L3 lumbar vertebra with routine healing, subsequent encounter S32.030D and Drug-induced constipation K59.03 [facility] [address] [facility] [id number] [address] [place] [phone] Jun, [facility] [address] [facility] [id number] [address] [place] [phone] Jun, [facility] [address] [facility] [id number] [address] [place] [address] Apr, [facility] [address] [facility] [id number] [address] [place] [phone] Apr, Morbid obesity E66.01 [facility] [address] [facility] [id number] [address] [place] [address] Apr, Morbid obesity E66.01 ; Hype rtriglyceridemia E78.1 ; Gastroesophageal reflux disease, esophagitis presence not specified K21.9 and Joint pain M25.50 [facility] [address] [facility] [id number] [address] [place] [phone] Feb, [facility] [address] [address] Feb, [facility] [address] [place] [id number] [address] [place] [address] Jan, Acute bacterial conjunctivit is H10.30 [facility] [address] [place] [id number] [address] [place] [phone] 08 Dec, 2017 [facility] [address] [place] [id number] [address] [place] [phone] 04 Dec, 2017 [facility] [id number] [place] [phone] 17 Nov, 2017 [facility] [address] [facility] [id number] [address] [place] [phone] 07 Nov, 2017 Obstructive sleep apnea G47. 33 ; Morbid obesity E66.01 and Gastroesophageal reflux disease, esophagitis presence not specified K21.9 [facility] [address] [id number] [address] [place] [id number] 06 Nov, 2017 Encounter for examination of eyes and vision without abnormal findings Z01.00 [facility] [address] [facility] [id number] [address] [place] [phone] Oct, Thyroid nodule E04.1 and Scr eening for breast cancer Z12.31 [facility] [address] [facility] [id number] [address] [place] [address] Oct, History of DVT (deep vein th rombosis) Z86.718 ; Thyroid nodule E04.1 and Gastroesophageal reflux disease, esophagitis presence not specified K21.9 [facility] [address] [facility] [id number] [address] [place] [phone] Oct, [facility] [address] [id number] [address] [place] [phone] Sep, [place] [address] [facility] [id number] [address] [place] [address] Aug, [place] [address] [place] [id number] [address] [place] [phone] Aug, [place] [address] [place] [id number] [address] [place] [address] Aug, Acute pain of left shoulder M25.512 and Thyroid nodule E04.1 [place] [address] [place] [id number] [address] [place] [address] July, Superior glenoid labrum lesi on of left shoulder, subsequent encounter S43.432D [place] [address] [place] [id number] [address] [place] [address] Jun, History of DVT (deep vein th rombosis) Z86.718 [facility] [address] [facility] [id number] [address] [place] [phone] Jun, History of DVT (deep vein th rombosis) Z86.718 [place] [address] [facility] [id number] [address] [place] [address] Jun, Impingement syndrome, should er, left M75.42 [facility] [address] [place] [id number] [address] [place] [address] May, Subacromial bursitis of left shoulder joint M75.52 [place] [address] [id number] [address] [place] [address] May, [place] [address] [id number] [address] [place] [address] May, Hypertriglyceridemia E78.1 ; 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 Z79.01 and Excessive daytime sleepiness G47.19 [place] [address] [id number] [address] [place] [address] May, History of DVT (deep vein th rombosis) Z86.718 ; Generalized anxiety disorder F41.1 ; Hypertriglyceridemia E78.1 ; retirement (current) use of anticoagulants Z79.01 ; Subacromial bursitis of left shoulder joint M75.52 and Excessive daytime sleepiness G47.19 [place] [address] [id number] [address] [place] [address] May, [place] [address] [id number] [address] [place] [phone] May, slicing machine tender (current) use of a nticoagulants Z79.01 [place] [address] [id number] [address] [place] [address] Apr, slicing machine tender (current) use of a nticoagulants Z79.01 [place] [address] [id number] [address] [place] [address] Apr, slicing machine tender (current) use of a nticoagulants Z79.01 [place] [address] [id number] [address] [place] [address] Apr, slicing machine tender (current) use of a nticoagulants Z79.01 [place] [address] [id number] [address] [place] [address] Apr, [place] [address] [id number] [address] [place] [address] Apr, retirement (current) use of a nticoagulants Z79.01 [facility] [address] [id number] [address] [place] [id number] 13 Apr, 2017 slicing machine tender (current) use of a nticoagulants Z79.01 [facility] [address] [id number] [address] [place] [address] Apr, retirement (current) use of a nticoagulants Z79.01 [facility] [address] [id number] [address] [place] [phone] Apr, retirement (current) use of a nticoagulants Z79.01 [facility] [address] [id number] [address] [place] [phone] Apr, retirement (current) use of a nticoagulants Z79.01 [facility] [address] [id number] [address] [place] [phone] Apr, slicing machine tender (current) use of a nticoagulants Z79.01 [facility] [address] [id number] [address] [place] [phone] Mar, slicing machine tender (current) use of a nticoagulants Z79.01 [facility] [address] [id number] [address] [place] [phone] Mar, [facility] [address] [id number] [address] [place] [address] Mar, retirement (current) use of a nticoagulants Z79.01 [facility] [address] [id number] [address] [place] [id number] Jan, Dental examination Z01.20 [facility] [address] [id number] [address] [place] [address] [id number] Jan, [facility] [address] [id number] [address] [place] [address] Jan, slicing machine tender (current) use of a nticoagulants Z79.01 [facility] [address] [id number] [address] [place] [phone] Jan, History of DVT (deep vein th rombosis) Z86.718 [facility] [address] [id number] [address] [place] [phone] Jan, Generalized anxiety disorder F41.1 and Peripheral edema R60.9 [facility] [address] [id number] [address] [place] [address] Nov, History of DVT (deep vein th rombosis) Z86.718 [facility] [address] [id number] [address] [place] [phone] Nov, retirement (current) use of a nticoagulants Z79.01 [facility] [address] [facility] [id number] [address] [place] [address] Nov, Acute non-recurrent maxillar y sinusitis J01.00 [facility] [address] [id number] [address] [place] [phone] Oct, slicing machine tender (current) use of a nticoagulants Z79.01 [place] [address] [facility] [id number] [address] [place] [address] Oct, Personal history of venous t hrombosis and embolism Z86.718 [facility] [address] [id number] [address] [place] [phone] Sep, [facility] [address] [id number] [address] [place] [phone] Sep, Personal history of venous t hrombosis and embolism Z86.718 [facility] [address] [facility] [id number] [address] [place] [address] Sep, slicing machine tender (current) use of a nticoagulants Z79.01 [facility] [address] [facility] [id number] [address] [place] [address] Sep, slicing machine tender (current) use of a nticoagulants Z79.01 [place] [address] [facility] [id number] [address] [place] [address] Sep, Generalized anxiety disorder F41.1 and History of DVT (deep vein thrombosis) Z86.718 [place] [address] [place] [id number] [address] [place] [address] Aug, History of DVT (deep vein th rombosis) Z86.718 ; Generalized anxiety disorder F41.1 ; 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 Z79.01 ; Pelvic pain R10.2 ; Hypertriglyceridemia E78.1 ; Excessive daytime sleepiness G47.19 ; Colon cancer screening Z12.11 ; Screening for breast cancer Z12.39 ; Peripheral edema R60.9 and Gastroesophageal reflux disease, esophagitis presence not specified K21.9 [place] [address] [place] [id number] [address] [place] [address] Aug, [place] [address] [address] July, [place] [address] [place] [id number] [place] [address] July, History of DVT (deep vein th rombosis) Z86.718 [place] [address] [place] [id number] [address] [place] [address] Jun, Generalized anxiety disorder F41.1 [place] [address] [place] [id number] [address] [place] [address] Jun, History of DVT (deep vein th rombosis) Z86.718 [place] [address] [place] [id number] [address] [place] [address] Jun, History of DVT (deep vein th rombosis) Z86.718 [place] [address] [place] [id number] [address] [place] [address] Jun, History of DVT (deep vein th rombosis) Z86.718 [place] [address] [place] [id number] [place] [address] Jun, History of DVT (deep vein th rombosis) Z86.718 [facility] [address] [facility] [id number] [address] [place] [address] May, History of DVT (deep vein th rombosis) Z86.718 [facility] [address] [facility] [id number] [address] [place] [address] May, slicing machine tender (current) use of a nticoagulants Z79.01 [facility] [address] [facility] [id number] [address] [place] [phone] May, retirement (current) use of a nticoagulants Z79.01 [place] [address] [facility] [id number] [address] [place] [address] May, History of DVT (deep vein th rombosis) Z86.718 [facility] [address] [facility] [id number] [address] [place] [address] Apr, Bacterial conjunctivitis of left eye H10.9 and H/O motion sickness Z87.898 [place] [address] [facility] [id number] [address] [place] [address] 24 Apr, 2016 History of DVT (deep vein th rombosis) Z86.718 [facility] [address] [facility] [id number] [address] [place] [address] Apr, History of DVT (deep vein th rombosis) Z86.718 [facility] [address] [facility] [id number] [address] [place] [address] 15 Apr, 2016 History of DVT (deep vein th rombosis) Z86.718 [facility] [address] [facility] [id number] [address] [place] [id number] 14 Apr, 2016 slicing machine tender (current) use of a nticoagulants Z79.01 [place] [address] [facility] [id number] [address] [place] [address] Mar, [facility] [address] [id number] [address] [place] [address] Mar, retirement (current) use of a nticoagulants Z79.01 [facility] [address] [id number] [address] [place] [address] Mar, Hypertriglyceridemia E78.1 a nd 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 Z79.01 [facility] [address] [id number] [address] [place] [address] Feb, retirement (current) use of a nticoagulants Z79.01 [facility] [address] [id number] [address] [place] [address] Feb, retirement (current) use of a nticoagulants Z79.01 [facility] [address] [id number] [address] [place] [address] Feb, slicing machine tender (current) use of a nticoagulants Z79.01 [facility] [address] [id number] [address] [place] [address] Dec, [facility] [address] [id number] [address] [place] [address] Nov, [facility] [address] [id number] [address] [place] [address] Nov, History of DVT (deep vein th rombosis) Z86.718 ; Tremulousness R25.1 ; Generalized anxiety disorder F41.1 ; Peripheral edema R60.9 and Hypertriglyceridemia E78.1 [facility] [address] [id number] [address] [place] [address] Oct, History of DVT (deep vein th rombosis) Z86.718 [facility] [address] [id number] [address] [place] [address] Oct, [facility] [address] [id number] [address] [place] [address] Sep, History of DVT (deep vein th rombosis) Z86.718 [facility] [address] [id number] [address] [place] [address] Sep, slicing machine tender (current) use of a nticoagulants Z79.01 [facility] [address] [id number] [address] [place] [address] July, [facility] [address] [id number] [address] [place] [address] July, slicing machine tender (current) use of a nticoagulants Z79.01 [place] [address] [id number] [address] [place] [address] July, retirement (current) use of a nticoagulants Z79.01 [place] [address] [id number] [address] [place] [phone] Jun, retirement (current) use of a nticoagulants Z79.01 [facility] [address] [id number] [address] [place] [id number] Jun, Coccyx pain M53.3 ; Encounte r for therapeutic drug level monitoring Z51.81 and slicing machine tender current use 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.01 [place] [id number] [id number] [address] [place] [phone] May, Abnormal mammogram R92.8 [facility] [address] [id number] [address] [place] [id number] May, [facility] [place] [id number] [id number] [address] [place] [id number] May, Acute vaginitis N76.0 and En counter for other screening for malignant neoplasm of breast Z12.39 [place] [address] [id number] [address] [place] [id number] Apr, [place] [address] [address] [facility] [id number] [address] [place] [id number] Apr, [place] [address] [id number] [address] [place] [id number] Apr, Peripheral edema R60.9 [facility] [address] [id number] [address] [place] [id number] Apr, slicing machine tender (current) use of a nticoagulants Z79.01 [facility] [address] [id number] [address] [place] [id number] Apr, Peripheral edema R60.9 and L jose martin term (current) 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 Z79.01 [facility] [address] [id number] [address] [place] [id number] Apr, retirement (current) use of a nticoagulants Z79.01 [place] [address] [id number] [address] [place] [id number] Apr, [facility] [address] [id number] [address] [place] [id number] Apr, slicing machine tender (current) use of a nticoagulants Z79.01 [facility] [address] [id number] [address] [place] [id number] Apr, Peripheral edema R60.9 [facility] [address] [id number] [address] [place] [address] Mar, retirement (current) use of a nticoagulants Z79.01 [facility] [address] [id number] [address] [place] [address] Mar, retirement (current) use of a nticoagulants Z79.01 and Hypertriglyceridemia E78.1 [facility] [address] [id number] [address] [place] [address] Mar, retirement (current) use of a nticoagulants Z79.01 [facility] [address] [id number] [address] [place] [id number] Mar, retirement (current) use of a nticoagulants Z79.01 [place] [address] [facility] [id number] [address] [place] [address] Mar, [place] [address] [id number] [address] [place] [address] Mar, retirement (current) use of a nticoagulants Z79.01 ; Hypertriglyceridemia E78.1 ; Personal history of venous thrombosis and embolism Z86.718 and Lump R22.9 [place] [address] [id number] [address] [place] [address] Mar, Personal history of venous t hrombosis and embolism Z86.718 [place] [address] [id number] [address] [place] [address] Mar, Personal history of venous t hrombosis and embolism Z86.718 [place] [address] [facility] [id number] [address] [place] [address] Mar, [place] [address] [id number] [address] [place] [address] Dec, Personal history of venous t hrombosis and embolism Z86.718 [place] [address] [id number] [address] [place] [address] Dec, Personal history of venous t hrombosis and embolism V12.51 [place] [address] [facility] [id number] [address] [place] [address] Nov, Personal history of venous t hrombosis and embolism V12.51 [place] [address] [id number] [address] [place] [id number] 25 Nov, 2014 Personal history of venous t hrombosis and embolism V12.51 [place] [address] [facility] [id number] [address] [place] [id number] 17 Nov, 2014 Personal history of venous t hrombosis and embolism V12.51 [place] [address] [facility] [id number] [address] [place] [address] Nov, Personal history of venous t hrombosis and embolism V12.51 [facility] [address] [id number] [address] [place] [address] Nov, [facility] [address] [id number] [address] [place] [address] Oct, Dysuria 788.1 [facility] [address] [id number] [address] [place] [address] Oct, Personal history of venous t hrombosis and embolism V12.51 [facility] [address] [id number] [address] [place] [address] Oct, [facility] [address] [id number] [address] [place] [address] Oct, Personal history of venous t hrombosis and embolism V12.51 [facility] [address] [id number] [address] [place] [id number] Sep, Personal history of venous t hrombosis and embolism V12.51 [facility] [address] [id number] [address] [place] [address] Sep, Personal history of venous t hrombosis and embolism V12.51 [facility] [address] [id number] [address] [place] [address] Aug, Personal history of venous t hrombosis and embolism V12.51 [facility] [address] [id number] [address] [place] [id number] Aug, Personal history of venous t hrombosis and embolism V12.51 [facility] [address] [id number] [address] [place] [address] Aug, Personal history of venous t hrombosis and embolism V12.51 [facility] [address] [id number] [address] [place] [address] July, Generalized anxiety disorder 300.02 ; Abdominal pain, left lower quadrant 789.04 and Personal history of venous thrombosis and embolism V12.51 [facility] [address] [id number] [address] [place] [address], [place] [address] 14 Jun, 2014 [facility] [address] [id number] [address] [place] [address], [place] [address] Jun, [facility] [address] [id number] [address] [place] [address], [place] [address] May, [facility] [address] [id number] [address] [place] [address], [place] [address] May, [facility] [address] [id number] [address] [place] [address], [place] [address] May, [facility] [address] [id number] [address] [place] [address], [place] [address] May, [facility] [address] [id number] [address] [place] [address], [place] [address] May, [facility] [address] [id number] [address] [place] [address] May, [facility] [address] [id number] [address] [place] [address], [place] [address] May, [facility] [address] [id number] [address] [place] [address] May, [facility] [address] [id number] [address] [place] [address], [place] [address] Apr, [facility] [address] [id number] [address] [place] [id number] Apr, [facility] [address] [id number] [address] [place] [address], [place] [address] Apr, [facility] [address] [id number] [address] [place] [address], [place] [address] Apr, [facility] [address] [id number] [address] [place] [address], [place] [address] Apr, [facility] [address] [id number] [address] [place] [address], [place] [address] Mar, [facility] [address] [id number] [address] [place] [address], [place] [address] Mar, [facility] [address] [id number] [address] [place] [address], [place] [address] Mar, [facility] [address] [id number] [address] [place] [address], [place] [address] Mar, [facility] [address] [id number] [address] [place] [address], [place] [address] Mar, [facility] [address] [id number] [address] [place] [address], [place] [address] Mar, [facility] [address] [id number] [address] [place] [address], [place] [address] Feb, [facility] [address] [id number] [address] [place] [address], [place] [address] Feb, [facility] [address] [id number] [address] [place] [address], [place] [address] Feb, [facility] [address] [id number] [address] [place] [address], [place] [address] Feb, [facility] [address] [id number] [address] [place] [address], [place] [address] Feb, [facility] [address] [id number] [address] [place] [address], [place] [address] Feb, [facility] [address] [id number] [address] [place] [address], [place] [address] Feb, [facility] [address] [id number] [address] [place] [address], [place] [address] Feb, [facility] [address] [id number] [address] [place] [address], [place] [address] Feb, [facility] [address] [id number] [address] [place] [address], [place] [address] Feb, [facility] [address] [id number] [address] [place] [address], [place] [address] Jan, [facility] [address] [id number] [address] [place] [address], [place] [address] Jan, [facility] [address] [id number] [address] [place] [address], [place] [address] Jan, [facility] [address] [id number] [address] [place] [address], [place] [address] Jan, [facility] [address] [id number] [address] [place] [address], [place] [address] Jan, [facility] [address] [id number] [address] [place] [address], [place] [address] Jan, [facility] [address] [id number] [address] [place] [address], [place] [address] Jan, [facility] [address] [id number] [address] [place] [address], [place] [address] Jan, [facility] [address] [id number] [address] [place] [address], [place] [address] Jan, [facility] [address] [id number] [address] [place] [address], [place] [address] Jan, [facility] [address] [id number] [address] [place] [address], [place] [address] Dec, [facility] [address] [id number] [address] [place] [address], [place] [address] Dec, [facility] [address] [id number] [address] [place] [address], [place] [address] Dec, [facility] [address] [id number] [address] [place] [address], [place] [address] Dec, [facility] [address] [id number] [address] [place] [address], [place] [address] Dec, [facility] [address] [id number] [address] [place] [address], [place] [address] Dec, [facility] [address] [id number] [address] [place] [address], [place] [address] Dec, [facility] [address] [id number] [address] [place] [address], [place] [address] Dec, [facility] [address] [id number] [address] [place] [address], [place] [address] Dec, [facility] [address] [id number] [address] [place] [address], [place] [address] Dec, [facility] [address] [id number] [address] [place] [address], [place] [address] Dec, [facility] [address] [id number] [address] [place] [address], [place] [address] Dec, [facility] [address] [id number] [address] [place] [address], [place] [address] Dec, [facility] [address] [id number] [address] [place] [address], [place] [address] Dec, [facility] [address] [id number] [address] [place] [address], [place] [address] Dec, [facility] [address] [id number] [address] [place] [address], [place] [address] 30 Nov, 2013 [facility] [address] [id number] [address] [place] [address], [place] [address] 30 Nov, 2013 [facility] [address] [id number] [address] [place] [address], [place] [address] 26 Nov, 2013 [facility] [address] [id number] [address] [place] [address], [place] [address] 26 Nov, 2013 [facility] [address] [id number] [address] [place] [address], [place] [id number] 24 Nov, 2013 [facility] [address] [id number] [address] [place] [address], [place] [address] 24 Nov, 2013 [facility] [address] [id number] [facility] [place] [address] 23 Sep, 2013 [facility] [address] [id number] [facility] [place] [address] 23 Sep, 2013 [facility] [address] [id number] [facility] [place] [address] 18 Nov, 2013 [facility] [address] [id number] [address] [place] [address], [place] [address] 18 Nov, 2013 [facility] [address] [id number] [facility] [place] [address] 17 Nov, 2013 [facility] [address] [id number] [address] [place] [address], [place] [id number] 17 Nov, 2013 [facility] [address] [id number] [address] [place] [address], [place] [address] 11 Nov, 2013 [facility] [address] [id number] [address] [place] [address], [place] [address] 11 Nov, 2013 [facility] [address] [id number] [address] [place] [address], [place] [address] 10 Nov, 2013 [facility] [address] [id number] [address] [place] [address], [place] [address] 10 Nov, 2013 [facility] [address] [id number] [address] [place] [address], [place] [address] 08 Nov, 2013 [facility] [address] [id number] [address] [place] [address], [place] [address] 08 Nov, 2013 [facility] [address] [id number] [address] [place] [address], [place] [address] 22 Sep, 2013 [facility] [address] [id number] [address] [place] [address], [place] [address] Sep, 2013 [facility] [address] [id number] [address] [place] [address], [place] [address] Sep, 2013 [facility] [address] [id number] [address] [place] [address], [place] [address] Sep, [facility] [address] [id number] [facility] [place] [address] Sep, [facility] [address] [id number] [facility] [place] [address] Sep, [facility] [address] [id number] [facility] [place] [address] Aug, [facility] [address] [id number] [address] [place] [address], [place] [address] Aug, [facility] [address] [id number] [address] [place] [address], [place] [address] Aug, [facility] [address] [id number] [address] [place] [address], [place] [address] Aug, [facility] [address] [id number] [address] [place] [address], [place] [address] Aug, [facility] [address] [id number] [address] [place] [address], [place] [address] Aug, [facility] [address] [id number] [address] [place] [address], [place] [address] Aug, [facility] [address] [id number] [address] [place] [address], [place] [address] Aug, [facility] [address] [id number] [address] [place] [address], [place] [address] Aug, [facility] [address] [id number] [address] [place] [address], [place] [address] Aug, [facility] [address] [id number] [address] [place] [address], [place] [address] Aug, [facility] [address] [id number] [address] [place] [address], [place] [address] July, [facility] [address] [id number] [address] [place] [address], [place] [address] July, [facility] [address] [id number] [address] [place] [address], [place] [address] Jun, [facility] [address] [id number] [address] [place] [address], [place] [address] Jun, [facility] [address] [id number] [address] [place] [address], [place] [address] 18 Jun, 2013 [facility] [address] [id number] [address] [place] [address], [place] [address] Jun, [facility] [address] [id number] [address] [place] [address], [place] [address] Jun, [facility] [address] [id number] [address] [place] [address], [place] [address] Jun, [facility] [address] [id number] [address] [place] [address], [place] [address] Jun, [facility] [address] [id number] [address] [place] [address], [place] [address] Jun, [facility] [address] [id number] [address] [place] [address], [place] [address] Jun, [facility] [address] [id number] [address] [place] [address], [place] [address] Jun, [facility] [address] [id number] [address] [place] [address], [place] [address] Jun, [facility] [address] [id number] [address] [place] [address], [place] [address] Jun, [facility] [address] [id number] [address] [place] [address], [place] [address] May, [facility] [address] [id number] [address] [place] [address], [place] [address] May, [facility] [address] [id number] [address] [place] [address], [place] [address] May, [facility] [address] [id number] [address] [place] [address], [place] [address] May, [facility] [address] [id number] [facility] [place] [address] May, [facility] [address] [id number] [address] [place] [address], [place] [address] May, [facility] [address] [id number] [address] [place] [address], [place] [address] May, [facility] [address] [id number] [address] [place] [address], [place] [address] May, [facility] [address] [id number] [address] [place] [address], [place] [address] May, [facility] [address] [id number] [address] [place] [address], [place] [address] May, [facility] [address] [id number] [address] [place] [address], [place] [address] May, [facility] [address] [id number] [address] [place] [address], [place] [address] May, [facility] [address] [id number] [address] [place] [address], [place] [address] Apr, [facility] [address] [id number] [address] [place] [address], [place] [address] Apr, [facility] [address] [id number] [address] [place] [address], [place] [address] Apr, [facility] [address] [id number] [address] [place] [address], [place] [address] Apr, [facility] [address] [id number] [address] [place] [address], [place] [address] Apr, [facility] [address] [id number] [address] [place] [address], [place] [address] Apr, [facility] [address] [id number] [address] [place] [address], [place] [address] Apr, [facility] [address] [id number] [address] [place] [id number] Apr, [facility] [address] [id number] [address] [place] [address], [place] [address] Apr, [facility] [address] [id number] [address] [place] [address], [place] [address] Apr, 2013 [facility] [address] [id number] [address] [place] [address], [place] [address] Apr, 2013 [facility] [address] [id number] [address] [place] [address], [place] [address] Apr, [facility] [address] [id number] [address] [place] [address], [place] [address] Apr, [facility] [address] [id number] [address] [place] [address], [place] [address] Apr, [facility] [address] [id number] [address] [place] [address], [place] [address] Apr, [facility] [address] [id number] [address] [place] [address], [place] [id number] Apr, [facility] [address] [id number] [address] [place] [address], [place] [address] Apr, [facility] [address] [id number] [address] [place] [address], [place] [id number] Jan, [facility] [address] [id number] [address] [place] [address], [place] [id number] 13 Jan, 2013 [facility] [address] [id number] [address] [place] [address], [place] [id number] 08 Jan, 2013 [facility] [address] [id number] [address] [place] [address], [place] [address] Jan, [facility] [address] [id number] [address] [place] [address], [place] [address] Jan, [facility] [address] [id number] [address] [place] [address], [place] [address] Jan, [facility] [address] [id number] [address] [place] [address], [place] [address] Jan, [facility] [address] [id number] [address] [place] [address], [place] [address] Dec, [facility] [address] [id number] [address] [place] [address], [place] [address] Dec, [facility] [address] [id number] [address] [place] [address], [place] [address] Dec, [facility] [address] [id number] [address] [place] [address], [place] [id number] Nov, [facility] [address] [id number] [address] [place] [address], [place] [address] Nov, [facility] [address] [id number] [address] [place] [address], [place] [id number] Nov, [facility] [address] [id number] [address] [place] [address], [place] [address] Nov, [facility] [address] [id number] [address] [place] [address], [place] [address] Oct, [facility] [address] [id number] [address] [place] [address], [place] [id number] Oct, [facility] [address] [id number] [address] [place] [address], [place] [address] Oct, [facility] [address] [id number] [address] [place] [address], [place] [id number] Oct, [facility] [address] [id number] [address] [place] [address], [place] [address] Oct, [facility] [address] [id number] [address] [place] [address], [place] [id number] Sep, [facility] [address] [id number] [address] [place] [address], [place] [id number] Sep, [facility] [address] [id number] [address] [place] [address], [place] [address] Sep, [facility] [address] [id number] [address] [place] [address], [place] [id number] Sep, [facility] [address] [id number] [address] [place] [address], [place] [id number] Sep, [facility] [address] [id number] [address] [place] [address], [place] [address] Sep, [facility] [address] [id number] [address] [place] [address], [place] [address] Sep, [facility] [address] [id number] [address] [place] [address], [place] [address] Aug, [facility] [address] [id number] [address] [place] [address], [place] [address] Aug, [facility] [address] [id number] [address] [place] [address], [place] [address] July, [facility] [address] [id number] [address] [place] [address], [place] [address] Jun, [facility] [address] [id number] [address] [place] [address], [place] [address] Jun, [facility] [address] [id number] [address] [place] [address], [place] [address] Jun, [facility] [address] [id number] [address] [place] [address], [place] [id number] Apr, [facility] [address] [id number] [address] [place] [address], [place] [address] Apr, [facility] [address] [id number] [address] [place] [address], [place] [id number] Apr, [facility] [address] [id number] [address] [place] [address], [place] [address] Mar, [facility] [address] [id number] [address] [place] [address], [place] [address] Mar, [facility] [address] [id number] [address] [place] [address], [place] [id number] 2012 [facility] [address] [id number] [address] [place] [address], [place] [id number] Mar, [facility] [address] [id number] [address] [place] [address], [place] [address] Mar, [facility] [address] [id number] [address] [place] [address], [place] [id number] 14 Feb, 2012 [facility] [address] [id number] [address] [place] [address], [place] [id number] 14 Feb, 2012 [facility] [address] [id number] [address] [place] [address], [place] [id number] Jan, [facility] [address] [id number] [address] [place] [address], [place] [id number] Jan, [facility] [address] [id number] [address] [place] [address], [place] [id number] Jan, [facility] [address] [id number] [address] [place] [address], [place] [id number] Jan, [facility] [address] [id number] [address] [place] [address], [place] [id number] Jan, [facility] [address] [id number] [address] [place] [address], [place] [id number] Jan, [facility] [address] [id number] [address] [place] [address], [place] [id number] Jan, [facility] [address] [id number] [address] [place] [address], [place] [id number] Dec, [facility] [address] [id number] [address] [place] [address], [place] [id number] Dec, [facility] [address] [id number] [address] [place] [address], [place] [id number] 30 Dec, 2011 [facility] [address] [id number] [address] [place] [address], [place] [id number] Dec, [facility] [address] [id number] [address] [place] [address], [place] [id number] Dec, [facility] [address] [id number] [address] [place] [address], [place] [id number] Dec, [facility] [address] [id number] [address] [place] [address], [place] [id number] Dec, [facility] [address] [id number] [address] [place] [address], [place] [id number] Dec, [facility] [address] [id number] [address] [place] [address], [place] [id number] Dec, [facility] [address] [id number] [address] [place] [address], [place] [id number] Dec, [facility] [address] [id number] [address] [place] [address], [place] [id number] Oct, [facility] [address] [id number] [address] [place] [address], [place] [id number] Oct, [facility] [address] [id number] [address] [place] [address], [place] [id number] Aug, [facility] [address] [id number] [address] [place] [address], [place] [id number] Aug, [facility] [address] [id number] [address] [place] [address], [place] [id number] July, [facility] [address] [id number] [address] [place] [address], [place] [id number] Jun, [facility] [address] [id number] [address] [place] [address], [place] [id number] Jun, [facility] [address] [id number] [address] [place] [address], [place] [id number] May, [facility] [address] [id number] [address] [place] [address], [place] [id number] Apr, [facility] [address] [id number] [address] [place] [address], [place] [id number] 16 Apr, 2011 [facility] [address] [id number] [address] [place] [address], [place] [id number] 19 Mar, 2011 [facility] [address] [id number] [address] [place] [address], [place] [id number] 16 Mar, 2011 [facility] [address] [id number] [address] [place] [address], [place] [id number] 19 Feb, 2011 [facility] [address] [id number] [address] [place] [address], [place] [id number] 15 Feb, 2011 [facility] [address] [id number] [address] [place] [address], [place] [id number] 13 Feb, 2011 [facility] [address] [id number] [address] [place] [address], [place] [id number] 13 Feb, 2011 [facility] [address] [id number] [address] [place] [address], [place] [id number] Jan, [facility] [address] [id number] [address] [place] [address], [place] [id number] 17 Dec, 2010 [facility] [address] [id number] [address] [place] [address], [place] [id number] 08 Feb, 2010 [facility] [address] [id number] [address] [place] [address], [place] [id number] 02 Feb, 2010 [facility] [address] [id number] [address] [place] [address], [place] [id number] Feb, [facility] [address] [id number] [address] [place] [address], [place] [id number] Feb, [facility] [address] [id number] [address] [place] [address], [place] [id number] 15 Dec, 2009 [facility] [address] [id number] [address] [place] [address], [place] [id number] 15 Dec, 2009 [facility] [address] [id number] [address] [place] [address], [place] [id number] Oct, [facility] [address] [facility] [id number] [address] [place] [id number] Jun, [facility] [address] [facility] [id number] [address] [place] [id number] Feb, [facility] [address] [facility] [id number] [address] [place] [id number] Feb, [facility] [address] [facility] [id number] [address] [place] [id number] Feb, [facility] [address] [facility] [id number] [address] [place] [id number] Dec, IMMUNIZATIONS No Known Immunizations SOCIAL HISTORY [...]
--- OUTSIDE RECORDS SUMMARY | 2019-10-19 12:20 | XMS REPORT ---
Author Author Mary Jane Donohue Organization [facility] Address [address] [place] [address] Care Team Providers Care Legal Administrative Assistant Name Role Phone JAMI Donohue Unavailable PROBLEMS Type Condition ICD9-CM Code [id number] Code Onset Dates Condition S tatus SNOMED Code Problem Thyroid follicular adenoma D34 Act phylicia 933047453 Problem History of DVT (deep vein thrombosis) Z86.718 Active 355547755 Problem Factor V Leiden D68.51 Active 3070 01460 Problem FDC (current) use of anticoagulants Z79.01 Active 104236826 Problem Hypertriglyceridemia E78.1 Active 158337337 Problem Presence of IVC filter Z95.828 Active 770860910 Problem 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 Active 077819275 Problem Peripheral edema R60.9 Active 271 954491 Problem Excessive daytime sleepiness G47.19 A ctive 842677014699 Problem Gastroesophageal reflux disease, esophagitis pre sence not specified K21.9 Active 676441993 Problem Chronic pain due to trauma G89.21 Act phylicia 110070338 Problem Pelvic pain R10.2 Active 77382930 Problem Subclinical hypothyroidism E03.9 Act phylicia 93239826 Problem Generalized anxiety disorder F41.1 A ctive 993538548 Problem Thyroid nodule E04.1 Active 47227 5005 Problem Morbid obesity E66.01 Active 88360 6002 Problem Moderate episode of recurrent major depressive disorder F33.1 Active 529482960 Problem Vitamin D deficiency E55.9 Active 96862532 ALLERGIES No Information ENCOUNTERS Encounter Location Date Diagnosis [facility] [address] [facility] [id number] [address] [place] [phone] Aug, [facility] [address] [facility] [id number] [address] [place] [address] Aug, Morbid obesity E66.01 [facility] [address] [place] [id number] [address] [place] [phone] 11 Aug, 2019 Subclinical hypothyroidism E 03.9 [place] [address] [address] 05 Aug, 2019 Subclinical hypothyroidism E 03.9 and Anemia D64.9 [place] [address] [address] 04 Aug, 2019 [place] [address] [address] 04 Aug, 2019 [place] [address] [place] [id number] [place] [address] July, [place] [address] [address] July, Subclinical hypothyroidism E 03.9 and Anemia D64.9 [place] [address] [address] July, Thyroid nodule E04.1 ; Hyper triglyceridemia E78.1 ; Excessive daytime sleepiness G47.19 and Vitamin D deficiency E55.9 [place] [address] [address] July, Hypertriglyceridemia E78.1 ; Excessive daytime sleepiness G47.19 ; Vitamin D deficiency E55.9 ; Morbid obesity E66.01 ; Peripheral edema R60.9 ; Generalized anxiety disorder F41.1 and Chronic pain due to trauma G89.21 [place] [id number] [place] [address] 28 Jun, 2019 [place] [address] [place] [id number] [place] [phone] 15 Jun, 2019 Back pain with history of sp inal surgery M54.9 [place] [address] [place] [id number] [address] [place] [address] 12 Apr, 2019 Back pain with history of sp inal surgery M54.9 [place] [address] [address] 11 Apr, 2019 [facility] [address] [facility] [id number] [address] [place] [id number] 10 Apr, 2019 Gastroenteritis K52.9 ; Back pain with history of spinal surgery M54.9 ; Dermatofibroma of lower leg, unspecified laterality D23.70 and Morbid obesity E66.01 [place] [address] [facility] [id number] [address] [place] [address] Mar, [place] [address] [facility] [id number] [address] [place] [phone] Jan, [place] [address] [facility] [id number] [address] [place] [phone] Jan, [place] [address] [facility] [id number] [address] [place] [address] Dec, Encounter for weight managem ent Z76.89 [place] [address] [facility] [id number] [address] [place] [address] Dec, Encounter for weight managem ent Z76.89 and Screening mammogram, encounter for Z12.31 [place] [address] [facility] [id number] [address] [place] [address] Nov, Encounter for weight managem ent Z76.89 [place] [address] [facility] [id number] [address] [place] [address] Nov, Thyroid nodule E04.1 [place] [address] [facility] [id number] [address] [place] [address] Nov, Thyroid nodule E04.1 [place] [address] [facility] [id number] [address] [place] [address] Nov, Thyroid nodule E04.1 [place] [address] [facility] [id number] [address] [place] [address] Oct, Syncope, unspecified syncope type R55 and Encounter for weight management Z76.89 [place] [address] [id number] [address] [place] [address] Oct, Morbid obesity E66.01 [facility] [address] [id number] [address] [place] [address] Oct, Hypertriglyceridemia E78.1 [facility] [address] [facility] [id number] [address] [place] [address] Oct, [facility] [address] [facility] [id number] [address] [place] [phone] Oct, Hypertriglyceridemia E78.1 [facility] [address] [id number] [address] [place] [address] Sep, Hypertriglyceridemia E78.1 a nd Vitamin D deficiency E55.9 [facility] [address] [facility] [id number] [address] [place] [address] Sep, [facility] [address] [facility] [id number] [place] [address] Sep, Morbid obesity E66.01 ; Mode rate episode of recurrent major depressive disorder F33.1 ; Hypertriglyceridemia E78.1 and Vitamin D deficiency E55.9 [facility] [address] [facility] [id number] [address] [place] [address] Aug, [facility] [address] [facility] [id number] [address] [place] [address] July, [facility] [address] [facility] [id number] [address] [place] [address] July, [facility] [address] [facility] [id number] [address] [place] [phone] Jun, [facility] [address] [facility] [id number] [address] [place] [address] Jun, [facility] [address] [facility] [id number] [address] [place] [address] Jun, Closed compression fracture of L3 lumbar vertebra with routine healing, subsequent encounter S32.030D and Drug-induced constipation K59.03 [facility] [address] [facility] [id number] [address] [place] [phone] Jun, [facility] [address] [facility] [id number] [place] [phone] Jun, [facility] [address] [facility] [id number] [address] [place] [address] Apr, [facility] [address] [facility] [id number] [place] [phone] Apr, Morbid obesity E66.01 [facility] [address] [facility] [id number] [address] [place] [address] Apr, Morbid obesity E66.01 ; Hype rtriglyceridemia E78.1 ; Gastroesophageal reflux disease, esophagitis presence not specified K21.9 and Joint pain M25.50 [facility] [address] [facility] [id number] [address] [place] [address] Feb, [facility] [address] [place] [id number] [address] [place] [address] Feb, [facility] [address] [facility] [id number] [address] [place] [phone] Jan, Acute bacterial conjunctivit is H10.30 [facility] [address] [facility] [id number] [address] [place] [address] 08 Dec, 2017 [facility] [address] [place] [id number] [address] [place] [address] 04 Dec, 2017 [facility] [address] [facility] [id number] [address] [place] [phone] 17 Nov, 2017 [facility] [address] [facility] [id number] [address] [place] [phone] 07 Nov, 2017 Obstructive sleep apnea G47. 33 ; Morbid obesity E66.01 and Gastroesophageal reflux disease, esophagitis presence not specified K21.9 [facility] [address] [id number] [address] [place] [id number] 06 Nov, 2017 Encounter for examination of eyes and vision without abnormal findings Z01.00 [facility] [address] [id number] [address] [place] [address] 31 Oct, 2017 Thyroid nodule E04.1 and Scr eening for breast cancer Z12.31 [facility] [address] [id number] [address] [place] [address] 23 Oct, 2017 History of DVT (deep vein th rombosis) Z86.718 ; Thyroid nodule E04.1 and Gastroesophageal reflux disease, esophagitis presence not specified K21.9 [place] [address] [id number] [address] [place] [address] Oct, [place] [address] [facility] [id number] [address] [place] [address] Sep, [place] [address] [facility] [id number] [address] [place] [address] Aug, [place] [address] [facility] [id number] [address] [place] [phone] Aug, [place] [address] [facility] [id number] [address] [place] [address] Aug, Acute pain of left shoulder M25.512 and Thyroid nodule E04.1 [place] [address] [facility] [id number] [address] [place] [address] July, Superior glenoid labrum lesi on of left shoulder, subsequent encounter S43.432D [place] [address] [facility] [id number] [address] [place] [address] Jun, History of DVT (deep vein th rombosis) Z86.718 [place] [address] [facility] [id number] [address] [place] [phone] Jun, History of DVT (deep vein th rombosis) Z86.718 [place] [address] [facility] [id number] [address] [place] [phone] Jun, Impingement syndrome, should er, left M75.42 [place] [address] [id number] [address] [place] [address] May, Subacromial bursitis of left shoulder joint M75.52 [facility] [address] [id number] [address] [place] [address] May, [place] [address] [facility] [id number] [address] [place] [address] May, Hypertriglyceridemia E78.1 ; rodent 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 (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) use of anticoagulants Z79.01 and Excessive daytime sleepiness G47.19 [facility] [address] [id number] [address] [place] [address] May, History of DVT (deep vein th rombosis) Z86.718 ; Generalized anxiety disorder F41.1 ; Hypertriglyceridemia E78.1 ; FDC (current) use of anticoagulants Z79.01 ; Subacromial bursitis of left shoulder joint M75.52 and Excessive daytime sleepiness G47.19 [place] [address] [id number] [address] [place] [address] May, [place] [address] [id number] [address] [place] [address] May, FDC (current) use of a nticoagulants Z79.01 [place] [address] [id number] [address] [place] [address] Apr, FDC (current) use of a nticoagulants Z79.01 [place] [address] [id number] [address] [place] [address] Apr, rodent 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 (current) use of a nticoagulants Z79.01 [place] [address] [id number] [address] [place] [address] Apr, FDC (current) use of a nticoagulants Z79.01 [place] [address] [facility] [id number] [address] [place] [address] Apr, [place] [address] [id number] [address] [place] [id number] 16 Apr, 2017 FDC (current) use of a nticoagulants Z79.01 [facility] [address] [id number] [address] [place] [address] 13 Apr, 2017 FDC (current) use of a nticoagulants Z79.01 [facility] [address] [id number] [address] [place] [address] Apr, FDC (current) use of a nticoagulants Z79.01 [facility] [address] [id number] [address] [place] [phone] Apr, rodent 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 (current) use of a nticoagulants Z79.01 [facility] [address] [id number] [address] [place] [phone] 07 Apr, 2017 rodent 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 (current) use of a nticoagulants Z79.01 [facility] [address] [id number] [address] [place] [address] Apr, rodent 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 (current) use of a nticoagulants Z79.01 [facility] [address] [id number] [address] [place] [address] Mar, FDC (current) use of a nticoagulants Z79.01 [facility] [address] [id number] [address] [place] [address] Mar, [facility] [address] [id number] [address] [place] [address] Mar, FDC (current) use of a nticoagulants Z79.01 [facility] [address] [id number] [address] [place] [id number] Jan, Dental examination Z01.20 [facility] [address] [id number] [address] [place] [id number] Jan, [facility] [address] [id number] [address] [place] [phone] Jan, FDC (current) use of a nticoagulants Z79.01 [facility] [address] [id number] [address] [place] [address] Jan, History of DVT (deep vein th rombosis) Z86.718 [facility] [address] [id number] [address] [place] [address] Jan, Generalized anxiety disorder F41.1 and Peripheral edema R60.9 [facility] [address] [id number] [address] [place] [address] Nov, History of DVT (deep vein th rombosis) Z86.718 [place] [address] [id number] [address] [place] [address] Nov, FDC (current) use of a nticoagulants Z79.01 [facility] [address] [id number] [address] [place] [address] Nov, Acute non-recurrent maxillar y sinusitis J01.00 [facility] [address] [id number] [address] [place] [address] Oct, FDC (current) use of a nticoagulants Z79.01 [facility] [address] [id number] [address] [place] [address] Oct, Personal history of venous t hrombosis and embolism Z86.718 [facility] [address] [id number] [address] [place] [address] Sep, [facility] [address] [id number] [address] [place] [address] Sep, Personal history of venous t hrombosis and embolism Z86.718 [facility] [address] [id number] [address] [place] [address] Sep, rodent 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 (current) use of a nticoagulants Z79.01 [facility] [address] [id number] [address] [place] [address] Sep, FDC (current) use of a nticoagulants Z79.01 [place] [address] [place] [id number] [address] [place] [address] Sep, Generalized anxiety disorder F41.1 and History of DVT (deep vein thrombosis) Z86.718 [place] [address] [place] [id number] [address] [place] [address] Aug, History of DVT (deep vein th rombosis) Z86.718 ; Generalized anxiety disorder F41.1 ; FDC (current) use of anticoagulants Z79.01 ; Pelvic pain R10.2 ; Hypertriglyceridemia E78.1 ; Excessive daytime sleepiness G47.19 ; Colon cancer screening Z12.11 ; Screening for breast cancer Z12.39 ; Peripheral edema R60.9 and Gastroesophageal reflux disease, esophagitis presence not specified K21.9 [place] [address] [address] Aug, [place] [address] [place] [id number] [address] [place] [address] July, [address] [address] July, History of DVT (deep vein th rombosis) Z86.718 [place] [address] [place] [id number] [address] [place] [address] Jun, Generalized anxiety disorder F41.1 [place] [address] [place] [id number] [address] [place] [address] Jun, History of DVT (deep vein th rombosis) Z86.718 [place] [address] [place] [id number] [address] [place] [address] Jun, History of DVT (deep vein th rombosis) Z86.718 [place] [address] [place] [id number] [address] [place] [address] Jun, History of DVT (deep vein th rombosis) Z86.718 [facility] [address] [facility] [id number] [address] [place] [address] Jun, History of DVT (deep vein th rombosis) Z86.718 [facility] [address] [facility] [id number] [address] [place] [address] May, History of DVT (deep vein th rombosis) Z86.718 [place] [address] [facility] [id number] [address] [place] [address] May, FDC (current) use of a nticoagulants Z79.01 [place] [address] [facility] [id number] [address] [place] [address] May, rodent 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 (current) use of a nticoagulants Z79.01 [place] [address] [facility] [id number] [address] [place] [address] May, History of DVT (deep vein th rombosis) Z86.718 [facility] [address] [facility] [id number] [address] [place] [address] Apr, Bacterial conjunctivitis of left eye H10.9 and H/O motion sickness Z87.898 [facility] [address] [facility] [id number] [address] [place] [address] Apr, History of DVT (deep vein th rombosis) Z86.718 [place] [address] [facility] [id number] [address] [place] [address] Apr, History of DVT (deep vein th rombosis) Z86.718 [place] [address] [facility] [id number] [address] [place] [address] 15 Apr, 2016 History of DVT (deep vein th rombosis) Z86.718 [facility] [address] [facility] [id number] [address] [place] [address] 14 Apr, 2016 FDC (current) use of a nticoagulants Z79.01 [facility] [address] [id number] [address] [place] [address] Mar, [facility] [address] [id number] [address] [place] [address] Mar, FDC (current) use of a nticoagulants Z79.01 [facility] [address] [id number] [address] [place] [address] Mar, Hypertriglyceridemia E78.1 a nd rodent 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 (current) use of anticoagulants Z79.01 [facility] [address] [id number] [address] [place] [address] Feb, rodent 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 (current) use of a nticoagulants Z79.01 [facility] [address] [id number] [address] [place] [address] Feb, rodent 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 (current) use of a nticoagulants Z79.01 [facility] [address] [id number] [address] [place] [address] Feb, rodent 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 (current) use of a nticoagulants Z79.01 [facility] [address] [id number] [address] [place] [address] Dec, [facility] [address] [id number] [address] [place] [address] Nov, [place] [address] [id number] [address] [place] [address] Nov, History of DVT (deep vein th rombosis) Z86.718 ; Tremulousness R25.1 ; Generalized anxiety disorder F41.1 ; Peripheral edema R60.9 and Hypertriglyceridemia E78.1 [facility] [address] [id number] [address] [place] [address] Oct, History of DVT (deep vein th rombosis) Z86.718 [place] [address] [id number] [address] [place] [address] Oct, [place] [address] [facility] [id number] [address] [place] [address] Sep, History of DVT (deep vein th rombosis) Z86.718 [place] [address] [address] [facility] [id number] [address] [place] [id number] Sep, rodent 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 (current) use of a nticoagulants Z79.01 [place] [address] [address] [facility] [id number] [address] [place] [phone] July, [place] [address] [address] [facility] [id number] [address] [place] [phone] July, rodent 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 (current) use of a nticoagulants Z79.01 [place] [address] [address] [facility] [id number] [address] [place] [phone] July, [facility] (current) use of a nticoagulants Z79.01 [place] [address] [address] [facility] [id number] [address] [place] [phone] Jun, rodent 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 (current) use of a nticoagulants Z79.01 [facility] [place] [address] [address] [facility] [id number] [address] [place] [phone] Jun, Coccyx pain M53.3 ; Encounte r for therapeutic drug level monitoring Z51.81 and rodent 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 current use 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.01 [place] [address] [address] [facility] [id number] [address] [place] [id number] May, Abnormal mammogram R92.8 [facility] [place] [address] [address] [facility] [id number] [address] [place] [phone] May, [facility] [place] [address] [address] [place] [id number] [address] [place] [phone] May, Acute vaginitis N76.0 and En counter for other screening for malignant neoplasm of breast Z12.39 [place] [address] [address] [facility] [id number] [address] [place] [phone] Apr, [place] [address] [id number] [address] [place] [id number] Apr, [facility] [address] [id number] [address] [place] [id number] Apr, Peripheral edema R60.9 [facility] [address] [id number] [address] [place] [phone] Apr, rodent 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 (current) use of a nticoagulants Z79.01 [facility] [address] [id number] [address] [place] [phone] Apr, Peripheral edema R60.9 and L jose martin term (current) 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 Z79.01 [facility] [facility] [address] [id number] [address] [place] [address] Apr, FDC (current) use of a nticoagulants Z79.01 [facility] [address] [id number] [address] [place] [address] Apr, [facility] [address] [id number] [address] [place] [address] Apr, FDC (current) use of a nticoagulants Z79.01 [facility] [address] [id number] [address] [place] [address] Apr, Peripheral edema R60.9 [facility] [address] [id number] [address] [place] [address] Mar, rodent 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 (current) use of a nticoagulants Z79.01 [facility] [address] [id number] [address] [place] [address] Mar, rodent 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 (current) use of a nticoagulants Z79.01 and Hypertriglyceridemia E78.1 [facility] [address] [id number] [address] [place] [address] Mar, rodent 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 (current) use of a nticoagulants Z79.01 [facility] [address] [id number] [address] [place] [address] Mar, FDC (current) use of a nticoagulants Z79.01 [place] [address] [id number] [address] [place] [address] Mar, [place] [address] [id number] [address] [place] [address] Mar, rodent 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 (current) use of a nticoagulants Z79.01 ; Hypertriglyceridemia E78.1 ; Personal history of venous thrombosis and embolism Z86.718 and Lump R22.9 [place] [address] [id number] [address] [place] [address] Mar, Personal history of venous t hrombosis and embolism Z86.718 [place] [address] [id number] [address] [place] [address] Mar, Personal history of venous t hrombosis and embolism Z86.718 [place] [address] [id number] [address] [place] [address] Mar, [place] [address] [id number] [address] [place] [address] Dec, Personal history of venous t hrombosis and embolism Z86.718 [place] [address] [id number] [address] [place] [address] Dec, Personal history of venous t hrombosis and embolism V12.51 [place] [address] [id number] [address] [place] [address] Nov, Personal history of venous t hrombosis and embolism V12.51 [place] [address] [id number] [address] [place] [id number] 25 Nov, 2014 Personal history of venous t hrombosis and embolism V12.51 [place] [address] [id number] [address] [place] [address] 17 Nov, 2014 Personal history of venous t hrombosis and embolism V12.51 [facility] [address] [id number] [address] [place] [address] Nov, Personal history of venous t hrombosis and embolism V12.51 [facility] [address] [id number] [address] [place] [address] Nov, [facility] [address] [id number] [address] [place] [address] Oct, Dysuria 788.1 [facility] [address] [id number] [address] [place] [address] Oct, Personal history of venous t hrombosis and embolism V12.51 [facility] [address] [id number] [address] [place] [address] Oct, [facility] [address] [id number] [address] [place] [address] Oct, Personal history of venous t hrombosis and embolism V12.51 [facility] [address] [id number] [address] [place] [address] Sep, Personal history of venous t hrombosis and embolism V12.51 [facility] [address] [id number] [address] [place] [address] Sep, Personal history of venous t hrombosis and embolism V12.51 [facility] [address] [id number] [address] [place] [address] Aug, Personal history of venous t hrombosis and embolism V12.51 [facility] [address] [id number] [address] [place] [address] Aug, Personal history of venous t hrombosis and embolism V12.51 [facility] [address] [id number] [address] [place] [address] Aug, Personal history of venous t hrombosis and embolism V12.51 [facility] [address] [id number] [address] [place] [address] July, Generalized anxiety disorder 300.02 ; Abdominal pain, left lower quadrant 789.04 and Personal history of venous thrombosis and embolism V12.51 [facility] [address] [id number] [address] [place] [address] 14 Jun, 2014 [facility] [address] [id number] [address] [place] [address] Jun, [facility] [address] [id number] [address] [place] [address] May, [facility] [address] [id number] [address] [place] [address] May, [facility] [address] [id number] [address] [place] [address] May, [facility] [address] [id number] [address] [place] [address] May, [facility] [address] [id number] [address] [place] [address] May, [facility] [address] [id number] [address] [place] [address] May, [facility] [address] [id number] [address] [place] [address] May, [facility] [address] [id number] [address] [place] [address] May, [facility] [address] [id number] [address] [place] [address] Apr, [facility] [address] [id number] [address] [place] [address] Apr, [facility] [address] [id number] [address] [place] [address] Apr, [facility] [address] [id number] [address] [place] [address] Apr, [facility] [address] [id number] [address] [place] [address], [place] [address] Apr, [facility] [address] [id number] [address] [place] [address], [place] [address] Mar, [facility] [address] [id number] [address] [place] [address], [place] [address] Mar, [facility] [address] [id number] [address] [place] [address], [place] [address] Mar, [facility] [address] [id number] [address] [place] [address], [place] [address] Mar, [facility] [address] [id number] [address] [place] [address], [place] [address] Mar, [facility] [address] [id number] [address] [place] [address], [place] [address] Mar, [facility] [address] [id number] [address] [place] [address], [place] [address] Feb, [facility] [address] [id number] [address] [place] [address], [place] [address] Feb, [facility] [address] [id number] [address] [place] [address], [place] [address] Feb, [facility] [address] [id number] [address] [place] [address], [place] [address] Feb, [facility] [address] [id number] [address] [place] [address], [place] [address] Feb, [facility] [address] [id number] [address] [place] [address], [place] [address] Feb, [facility] [address] [id number] [address] [place] [address], [place] [address] Feb, [facility] [address] [id number] [address] [place] [address], [place] [address] Feb, [facility] [address] [id number] [address] [place] [address], [place] [address] Feb, [facility] [address] [id number] [address] [place] [address], [place] [address] Feb, [facility] [address] [id number] [address] [place] [address], [place] [address] Jan, [facility] [address] [id number] [address] [place] [address], [place] [address] Jan, [facility] [address] [id number] [address] [place] [address], [place] [address] Jan, [facility] [address] [id number] [address] [place] [address], [place] [address] Jan, [facility] [address] [id number] [address] [place] [address], [place] [address] Jan, [facility] [address] [id number] [address] [place] [address], [place] [address] Jan, [facility] [address] [id number] [address] [place] [address], [place] [address] Jan, [facility] [address] [id number] [address] [place] [address], [place] [address] Jan, [facility] [address] [id number] [address] [place] [address], [place] [address] Jan, [facility] [address] [id number] [address] [place] [address], [place] [address] Jan, [facility] [address] [id number] [address] [place] [address], [place] [address] Dec, [facility] [address] [id number] [address] [place] [address], [place] [address] Dec, [facility] [address] [id number] [address] [place] [address], [place] [address] Dec, [facility] [address] [id number] [address] [place] [address], [place] [address] Dec, [facility] [address] [id number] [address] [address] Dec, [facility] [address] [id number] [address] [place] [address], [place] [address] Dec, [facility] [address] [id number] [address] [place] [address], [place] [address] Dec, [facility] [address] [id number] [address] [place] [address], [place] [address] Dec, [facility] [address] [id number] [address] [place] [address], [place] [address] Dec, [facility] [address] [id number] [address] [place] [address], [place] [address] Dec, [facility] [address] [id number] [address] [place] [address], [place] [address] Dec, [facility] [address] [id number] [address] [place] [address], [place] [address] Dec, [facility] [address] [id number] [address] [place] [address], [place] [address] Dec, [facility] [address] [id number] [address] [place] [address], [place] [address] Dec, [facility] [address] [id number] [address] [place] [address], [place] [address] Dec, [facility] [address] [id number] [address] [place] [address], [place] [address] 30 Nov, 2013 [facility] [address] [id number] [address] [place] [address] 30 Nov, 2013 [facility] [address] [id number] [address] [place] [address], [place] [address] Nov, 2013 [facility] [address] [id number] [address] [place] [address], [place] [address] Nov, 2013 [facility] [address] [id number] [address] [place] [address], [place] [address] 24 Nov, 2013 [facility] [address] [id number] [facility] [place] [address] 24 Sep, 2013 [facility] [address] [id number] [facility] [place] [address] 23 Nov, 2013 [facility] [address] [id number] [facility] [place] [address] 23 Nov, 2013 [facility] [address] [id number] [address] [place] [address], [place] [address] 18 Nov, 2013 [facility] [address] [id number] [address] [place] [address], [place] [address] 18 Nov, 2013 [facility] [address] [id number] [address] [place] [address], [place] [address] 17 Nov, 2013 [facility] [address] [id number] [address] [place] [address], [place] [address] 17 Nov, 2013 [facility] [address] [id number] [address] [place] [address], [place] [address] 11 Nov, 2013 [facility] [address] [id number] [address] [place] [address], [place] [address] 11 Nov, 2013 [facility] [address] [id number] [address] [place] [address], [place] [address] 10 Nov, 2013 [facility] [address] [id number] [address] [place] [address], [place] [address] 10 Nov, 2013 [facility] [address] [id number] [address] [place] [address], [place] [address] 08 Nov, 2013 [facility] [address] [id number] [address] [place] [address], [place] [address] 08 Nov, 2013 [facility] [address] [id number] [address] [place] [address], [place] [address] 22 Sep, 2013 [facility] [address] [id number] [address] [place] [address], [place] [address] Sep, [facility] [address] [id number] [address] [place] [address], [place] [address] Sep, [facility] [address] [id number] [facility] [place] [address] Sep, [facility] [address] [id number] [address] [place] [address], [place] [address] Sep, [facility] [address] [id number] [address] [place] [address], [place] [address] Sep, [facility] [address] [id number] [address] [place] [address], [place] [address] Aug, [facility] [address] [id number] [address] [place] [address], [place] [address] Aug, [facility] [address] [id number] [address] [place] [address], [place] [address] Aug, [facility] [address] [id number] [address] [place] [address], [place] [address] Aug, [facility] [address] [id number] [address] [place] [address], [place] [address] Aug, [facility] [address] [id number] [address] [place] [address], [place] [address] Aug, [facility] [address] [id number] [address] [place] [address], [place] [address] Aug, [facility] [address] [id number] [address] [place] [address], [place] [address] Aug, [facility] [address] [id number] [address] [place] [address], [place] [address] Aug, [facility] [address] [id number] [address] [place] [address], [place] [address] Aug, [facility] [address] [id number] [address] [place] [address], [place] [address] Aug, [facility] [address] [id number] [address] [place] [address], [place] [address] July, [facility] [address] [id number] [address] [place] [address], [place] [address] July, [facility] [address] [id number] [address] [place] [address], [place] [address] Jun, [facility] [address] [id number] [address] [place] [address], [place] [address] Jun, [facility] [address] [id number] [address] [place] [address], [place] [address] Jun, [facility] [address] [id number] [address] [place] [address], [place] [address] Jun, [facility] [address] [id number] [address] [place] [address], [place] [address] Jun, [facility] [address] [id number] [address] [place] [address], [place] [address] Jun, [facility] [address] [id number] [address] [place] [address], [place] [address] Jun, [facility] [address] [id number] [address] [place] [address], [place] [address] Jun, [facility] [address] [id number] [address] [place] [address], [place] [address] Jun, [facility] [address] [id number] [address] [place] [address], [place] [address] Jun, [facility] [address] [id number] [address] [place] [address], [place] [address] Jun, [facility] [address] [id number] [address] [place] [address], [place] [address] Jun, [facility] [address] [id number] [address] [place] [address], [place] [address] May, [facility] [address] [id number] [address] [place] [address], [place] [address] May, [facility] [address] [id number] [address] [place] [address], [place] [address] May, [facility] [address] [id number] [facility] [place] [address] May, [facility] [address] [id number] [facility] [place] [address] May, [facility] [address] [id number] [facility] [place] [address] May, [facility] [address] [id number] [address] [place] [address], [place] [address] May, [facility] [address] [id number] [address] [place] [address], [place] [address] May, [facility] [address] [id number] [address] [place] [address], [place] [address] May, [facility] [address] [id number] [address] [place] [address], [place] [address] May, [facility] [address] [id number] [address] [place] [address], [place] [address] May, [facility] [address] [id number] [address] [place] [address], [place] [address] May, [facility] [address] [id number] [address] [place] [address], [place] [address] Apr, [facility] [address] [id number] [address] [place] [address], [place] [address] Apr, [facility] [address] [id number] [address] [place] [address], [place] [address] Apr, [facility] [address] [id number] [address] [place] [address], [place] [address] Apr, [facility] [address] [id number] [address] [place] [address], [place] [address] Apr, [facility] [address] [id number] [address] [place] [address], [place] [address] Apr, [facility] [address] [id number] [address] [place] [address], [place] [address] Apr, [facility] [address] [id number] [address] [place] [address], [place] [address] Apr, [facility] [address] [id number] [address] [place] [address], [place] [address] Apr, [facility] [address] [id number] [address] [place] [address], [place] [address] Apr, [facility] [address] [id number] [address] [place] [address], [place] [address] Apr, [facility] [address] [id number] [address] [place] [address], [place] [id number] Apr, [facility] [address] [id number] [address] [place] [address], [place] [address] Apr, [facility] [address] [id number] [address] [place] [address], [place] [address] Apr, [facility] [address] [id number] [address] [place] [address], [place] [address] Apr, [facility] [address] [id number] [address] [place] [address], [place] [address] Apr, [facility] [address] [id number] [address] [place] [address], [place] [address] Apr, [facility] [address] [id number] [address] [place] [address], [place] [address] Jan, [facility] [address] [id number] [address] [place] [address], [place] [address] Jan, [facility] [address] [id number] [address] [place] [address], [place] [address] Jan, [facility] [address] [id number] [address] [place] [address], [place] [address] Jan, [facility] [address] [id number] [address] [place] [address], [place] [address] Jan, [facility] [address] [id number] [address] [place] [address], [place] [address] Jan, [facility] [address] [id number] [address] [place] [address], [place] [address] Jan, [facility] [address] [id number] [address] [place] [address], [place] [address] Dec, [facility] [address] [id number] [address] [place] [address], [place] [address] Dec, [facility] [address] [id number] [address] [place] [address], [place] [address] Dec, [facility] [address] [id number] [address] [place] [address], [place] [address] 10 Nov, 2012 [facility] [address] [id number] [address] [place] [address], [place] [address] Nov, [facility] [address] [id number] [address] [place] [address], [place] [address] 05 Nov, 2012 [facility] [address] [id number] [address] [place] [address], [place] [address] Nov, [facility] [address] [id number] [address] [place] [id number] Oct, [facility] [address] [id number] [address] [place] [id number] Oct, [facility] [address] [id number] [address] [place] [id number] Oct, [facility] [address] [id number] [address] [place] [address], [place] [address] Oct, [facility] [address] [id number] [address] [place] [address], [place] [address] Oct, [facility] [address] [id number] [address] [place] [id number] Sep, [facility] [address] [id number] [address] [place] [phone] Sep, [facility] [address] [id number] [address] [place] [address], [place] [address] Sep, [facility] [address] [id number] [address] [place] [address], [place] [address] Sep, [facility] [address] [id number] [address] [place] [address], [place] [address] Sep, [facility] [address] [id number] [address] [place] [address], [place] [address] Sep, [facility] [address] [id number] [address] [place] [address], [place] [address] Sep, [facility] [address] [id number] [address] [place] [address], [place] [id number] Aug, [facility] [address] [id number] [address] [place] [address], [place] [address] Aug, [facility] [address] [id number] [address] [place] [address], [place] [address] July, [facility] [address] [id number] [address] [place] [address], [place] [address] Jun, [facility] [address] [id number] [address] [place] [address], [place] [address] Jun, [facility] [address] [id number] [address] [place] [address], [place] [address] Jun, [facility] [address] [id number] [address] [place] [address], [place] [address] Apr, [facility] [address] [id number] [address] [place] [address], [place] [address] Apr, [facility] [address] [id number] [address] [place] [address], [place] [address] Apr, [facility] [address] [id number] [address] [place] [address], [place] [address] Mar, [facility] [address] [id number] [address] [place] [address], [place] [address] 24 Mar, 2012 [facility] [address] [id number] [address] [place] [address], [place] [address] 2012 [facility] [address] [id number] [address] [place] [address], [place] [address] 09 Mar, 2012 [facility] [address] [id number] [address] [place] [address], [place] [address] 07 Mar, 2012 [facility] [address] [id number] [address] [place] [address], [place] [address] 14 Feb, 2012 [facility] [address] [id number] [address] [place] [address], [place] [address] 14 Feb, 2012 [facility] [address] [id number] [address] [place] [address], [place] [address] Jan, [facility] [address] [id number] [address] [place] [address], [place] [address] Jan, [facility] [address] [id number] [address] [place] [address], [place] [address] Jan, [facility] [address] [id number] [address] [place] [address], [place] [address] Jan, [facility] [address] [id number] [address] [place] [address], [place] [address] Jan, [facility] [address] [id number] [address] [place] [address], [place] [address] Jan, [facility] [address] [id number] [address] [place] [address], [place] [address] Jan, [facility] [address] [id number] [address] [place] [address], [place] [address] Dec, [facility] [address] [id number] [address] [place] [address], [place] [address] Dec, [facility] [address] [id number] [address] [place] [address], [place] [address] Dec, [facility] [address] [id number] [address] [place] [address], [place] [address] Dec, [facility] [address] [id number] [address] [place] [address], [place] [address] Dec, [facility] [address] [id number] [address] [place] [address], [place] [address] Dec, [facility] [address] [id number] [address] [place] [address], [place] [address] Dec, [facility] [address] [id number] [address] [place] [address], [place] [address] Dec, [facility] [address] [id number] [address] [place] [address], [place] [address] Dec, [facility] [address] [id number] [address] [place] [address], [place] [address] Dec, [facility] [address] [id number] [address] [place] [address], [place] [address] Oct, [facility] [address] [id number] [address] [place] [address], [place] [address] Oct, [facility] [address] [id number] [address] [place] [phone] Aug, [facility] [address] [id number] [address] [place] [address], [place] [address] Aug, [facility] [address] [id number] [address] [place] [id number] July, [facility] [address] [id number] [address] [place] [address], [place] [address] Jun, [facility] [address] [id number] [address] [place] [address], [place] [address] Jun, [facility] [address] [id number] [address] [place] [address], [place] [address] May, [facility] [address] [id number] [address] [place] [address], [place] [address] Apr, [facility] [address] [id number] [address] [place] [address], [place] [address] Apr, [facility] [address] [id number] [address] [place] [address], [place] [address] Mar, [facility] [address] [id number] [address] [place] [address], [place] [address] Mar, [facility] [address] [id number] [address] [place] [address], [place] [address] 19 Feb, 2011 [facility] [address] [id number] [address] [place] [address], [place] [address] 15 Feb, 2011 [facility] [address] [id number] [address] [place] [address], [place] [address] 13 Feb, 2011 [facility] [address] [id number] [address] [place] [address], [place] [address] 13 Feb, 2011 [facility] [address] [id number] [address] [place] [address], [place] [address] Jan, [facility] [address] [id number] [address] [place] [address], [place] [address] 17 Dec, 2010 [facility] [address] [id number] [address] [place] [address], [place] [address] 08 Feb, 2010 [facility] [address] [id number] [address] [place] [address], [place] [address] Feb, [facility] [address] [id number] [address] [place] [address], [place] [address] Feb, [facility] [address] [id number] [address] [place] [address], [place] [address] Feb, [facility] [address] [id number] [address] [place] [address], [place] [address] 15 Dec, 2009 [facility] [address] [id number] [address] [place] [address], [place] [address] Dec, [facility] [address] [facility] [id number] [address] [place] [phone] Oct, [facility] [address] [id number] [address] [place] [id number] Jun, [facility] [address] [facility] [id number] [address] [place] [id number] Feb, [facility] [address] [facility] [id number] [address] [place] [id number] Feb, [facility] [address] [facility] [id number] [address] [place] [phone] Feb, [facility] [address] [facility] [id number] [address] [place] [phone] Dec, IMMUNIZATIONS No Known Immunizations SOCIAL HISTORY Never Assessed REASON FOR VISIT PLAN OF CARE VITAL SIGNS Height 64 in 2012-10-20 Weight 251 lbs 2012-10-20 Temperature 98 degrees Fahrenheit 2012-10-20 Heart Rate 90 bpm 2012-10-20 Respiratory Rate 20 2012-10-20 Blood pressure systolic 126 mmHg 2012-10-20 Blood pressure diastolic 90 mmHg 2012-10-20 MEDICATIONS Unknown Medications RESULTS No Results PROCEDURES Procedure Date Ordered Result Body Site MAMMOGRAM, SCREENING October 20, 2012 SCR PAP SMER;NEW PT OBTAIN PREP&CONVY-LAB October 20, 2012 CYTOPATH C/V AUTO FLUID REDO October 20, 2012 INSTRUCTIONS MEDICATIONS ADMINISTERED No Known Medications MEDICAL [...]
--- OUTSIDE RECORDS SUMMARY | 2019-10-19 12:20 | XMS REPORT ---
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 Active 225935353 Problem Hypertriglyceridemia E78.1 Active 365413954 Problem Presence of IVC filter Z95.828 Active 078596684 Problem 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 Active 909952634 Problem Peripheral edema R60.9 Active 271 785482 Problem Excessive daytime sleepiness G47.19 A ctive 569559488094 Problem Gastroesophageal reflux disease, esophagitis pre sence not specified K21.9 Active 680188072 Problem Chronic pain due to trauma G89.21 Act phylicia 736312786 Problem Pelvic pain R10.2 Active 30150329 Problem Subclinical hypothyroidism E03.9 Act phylicia 71999842 Problem Generalized anxiety disorder F41.1 A ctive 224561595 Problem Thyroid nodule E04.1 Active 50291 5005 Problem Morbid obesity E66.01 Active 28465 6002 Problem Moderate episode of recurrent major depressive disorder F33.1 Active 392351838 Problem Vitamin D deficiency E55.9 Active 98318758 ALLERGIES No Information ENCOUNTERS Encounter Location Date Diagnosis [facility] [address] [facility] [id number] [address] [place] [phone] Aug, [facility] [address] [facility] [id number] [address] [place] [phone] Aug, Morbid obesity E66.01 [facility] [address] [facility] [id number] [address] [place] [phone] 11 Aug, 2019 Subclinical hypothyroidism E 03.9 [facility] [address] [facility] [id number] [address] [place] [phone] 05 Aug, 2019 Subclinical hypothyroidism E 03.9 and Anemia D64.9 [facility] [address] [facility] [id number] [address] [place] [phone] 04 Aug, 2019 [facility] [address] [address] Aug, [facility] [address] [facility] [id number] [address] [place] [phone] July, [facility] [address] [address] July, Subclinical hypothyroidism E 03.9 and Anemia D64.9 [facility] [address] [place] [id number] [address] [place] [address] July, Thyroid nodule E04.1 ; Hyper triglyceridemia E78.1 ; Excessive daytime sleepiness G47.19 and Vitamin D deficiency E55.9 [facility] [address] [place] [id number] [address] [place] [address] July, Hypertriglyceridemia E78.1 ; Excessive daytime sleepiness G47.19 ; Vitamin D deficiency E55.9 ; Morbid obesity E66.01 ; Peripheral edema R60.9 ; Generalized anxiety disorder F41.1 and Chronic pain due to trauma G89.21 [facility] [place] [address] [place] [id number] [address] [place] [address] 28 Jun, 2019 [facility] [address] [facility] [id number] [address] [place] [phone] 15 Jun, 2019 Back pain with history of sp inal surgery M54.9 [facility] [place] [address] [place] [id number] [address] [place] [phone] 12 Apr, 2019 Back pain with history of sp inal surgery M54.9 [facility] [place] [address] [place] [id number] [address] [place] [phone] 11 Apr, 2019 [facility] [address] [facility] [id number] [address] [place] [phone] 10 Apr, 2019 Gastroenteritis K52.9 ; Back pain with history of spinal surgery M54.9 ; Dermatofibroma of lower leg, unspecified laterality D23.70 and Morbid obesity E66.01 [facility] [address] [facility] [id number] [address] [place] [address] Mar, [facility] [address] [facility] [id number] [address] [place] [phone] Jan, [facility] [address] [facility] [id number] [address] [place] [phone] Jan, [facility] [address] [facility] [id number] [address] [place] [phone] Dec, Encounter for weight managem ent Z76.89 [facility] [address] [place] [id number] [address] [place] [address] Dec, Encounter for weight managem ent Z76.89 and Screening mammogram, encounter for Z12.31 [facility] [address] [facility] [id number] [address] [place] [phone] Nov, Encounter for weight managem ent Z76.89 [facility] [address] [facility] [id number] [address] [place] [address] Nov, Thyroid nodule E04.1 [facility] [address] [facility] [id number] [address] [place] [address] Nov, Thyroid nodule E04.1 [facility] [address] [facility] [id number] [address] [place] [address] Nov, Thyroid nodule E04.1 [facility] [address] [facility] [id number] [address] [place] [address] Oct, Syncope, unspecified syncope type R55 and Encounter for weight management Z76.89 [place] [address] [facility] [id number] [address] [place] [address] Oct, Morbid obesity E66.01 [facility] [address] [id number] [address] [place] [address] Oct, Hypertriglyceridemia E78.1 [facility] [address] [id number] [address] [place] [phone] Oct, [facility] [address] [facility] [id number] [address] [place] [address] Oct, Hypertriglyceridemia E78.1 [facility] [address] [id number] [address] [place] [phone] Sep, Hypertriglyceridemia E78.1 a nd Vitamin D deficiency E55.9 [facility] [address] [id number] [address] [place] [phone] Sep, [facility] [address] [facility] [id number] [address] [place] [address] Sep, Morbid obesity E66.01 ; Mode rate episode of recurrent major depressive disorder F33.1 ; Hypertriglyceridemia E78.1 and Vitamin D deficiency E55.9 [facility] [address] [id number] [address] [place] [address] Aug, [facility] [address] [facility] [id number] [address] [place] [phone] July, [facility] [address] [id number] [address] [place] [address] July, [facility] [address] [id number] [address] [place] [phone] Jun, [facility] [address] [id number] [address] [place] [phone] Jun, [facility] [address] [facility] [id number] [address] [place] [address] Jun, Closed compression fracture of L3 lumbar vertebra with routine healing, subsequent encounter S32.030D and Drug-induced constipation K59.03 [facility] [address] [id number] [address] [place] [phone] Jun, [facility] [address] [facility] [id number] [address] [place] [phone] Jun, [facility] [address] [facility] [id number] [address] [place] [phone] Apr, [facility] [address] [facility] [id number] [address] [place] [address] Apr, Morbid obesity E66.01 [facility] [address] [facility] [id number] [address] [place] [address] 12 Apr, 2018 Morbid obesity E66.01 ; Hype rtriglyceridemia E78.1 ; Gastroesophageal reflux disease, esophagitis presence not specified K21.9 and Joint pain M25.50 [facility] [address] [facility] [id number] [address] [place] [phone] Feb, [facility] [address] [place] [id number] [address] [place] [phone] Feb, [facility] [address] [facility] [id number] [address] [place] [phone] Jan, Acute bacterial conjunctivit is H10.30 [facility] [address] [facility] [id number] [address] [place] [phone] 08 Dec, 2017 [facility] [address] [facility] [id number] [address] [place] [phone] Dec, [facility] [address] [facility] [id number] [address] [place] [address] Nov, [facility] [address] [facility] [id number] [address] [place] [phone] 07 Nov, 2017 Obstructive sleep apnea G47. 33 ; Morbid obesity E66.01 and Gastroesophageal reflux disease, esophagitis presence not specified K21.9 [facility] [address] [id number] [address] [place] [id number] 06 Nov, 2017 Encounter for examination of eyes and vision without abnormal findings Z01.00 [facility] [address] [facility] [id number] [address] [place] [address] Oct, Thyroid nodule E04.1 and Scr eening for breast cancer Z12.31 [place] [address] [facility] [id number] [address] [place] [address] Oct, History of DVT (deep vein th rombosis) Z86.718 ; Thyroid nodule E04.1 and Gastroesophageal reflux disease, esophagitis presence not specified K21.9 [place] [address] [facility] [id number] [address] [place] [phone] Oct, [place] [address] [facility] [id number] [address] [place] [address] Sep, [facility] [place] [address] [place] [id number] [address] [place] [address] Aug, [facility] [place] [address] [place] [id number] [address] [place] [address] Aug, [facility] [place] [address] [place] [id number] [address] [place] [address] Aug, Acute pain of left shoulder M25.512 and Thyroid nodule E04.1 [facility] [place] [address] [facility] [id number] [address] [place] [address] July, Superior glenoid labrum lesi on of left shoulder, subsequent encounter S43.432D [facility] [address] [place] [id number] [address] [place] [address] Jun, History of DVT (deep vein th rombosis) Z86.718 [facility] [address] [facility] [id number] [address] [place] [address] Jun, History of DVT (deep vein th rombosis) Z86.718 [facility] [place] [address] [facility] [id number] [address] [place] [address] Jun, Impingement syndrome, should er, left M75.42 [facility] [address] [place] [id number] [address] [place] [address] May, Subacromial bursitis of left shoulder joint M75.52 [place] [address] [facility] [id number] [address] [place] [address] May, [facility] [address] [facility] [id number] [address] [place] [address] May, Hypertriglyceridemia E78.1 ; watermelon inspector (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 Z79.01 and Excessive daytime sleepiness G47.19 [place] [address] [facility] [id number] [address] [place] [address] May, History of DVT (deep vein th rombosis) Z86.718 ; Generalized anxiety disorder F41.1 ; Hypertriglyceridemia E78.1 ; shelter (current) use of anticoagulants Z79.01 ; Subacromial bursitis of left shoulder joint M75.52 and Excessive daytime sleepiness G47.19 [facility] [place] [address] [facility] [id number] [address] [place] [address] May, [facility] [address] [id number] [address] [place] [address] May, watermelon inspector (current) use of a nticoagulants Z79.01 [place] [address] [facility] [id number] [address] [place] [address] Apr, shelter (current) use of a nticoagulants Z79.01 [place] [address] [id number] [address] [place] [address] Apr, shelter (current) use of a nticoagulants Z79.01 [facility] [address] [id number] [address] [place] [address] Apr, watermelon inspector (current) use of a nticoagulants Z79.01 [place] [address] [facility] [id number] [address] [place] [address] Apr, [place] [address] [facility] [id number] [address] [place] [phone] 16 Apr, 2017 shelter (current) use of a nticoagulants Z79.01 [facility] [address] [id number] [address] [place] [address] Apr, watermelon inspector (current) use of a nticoagulants Z79.01 [facility] [address] [id number] [address] [place] [address] Apr, watermelon inspector (current) use of a nticoagulants Z79.01 [facility] [address] [id number] [address] [place] [address] Apr, shelter (current) use of a nticoagulants Z79.01 [facility] [address] [id number] [address] [place] [address] Apr, watermelon inspector (current) use of a nticoagulants Z79.01 [facility] [address] [id number] [address] [place] [address] Apr, watermelon inspector (current) use of a nticoagulants Z79.01 [facility] [address] [id number] [address] [place] [address] Mar, watermelon inspector (current) use of a nticoagulants Z79.01 [facility] [address] [id number] [address] [place] [address] Mar, [facility] [address] [id number] [address] [place] [address] Mar, shelter (current) use of a nticoagulants Z79.01 [facility] [address] [id number] [address] [place] [id number] Jan, Dental examination Z01.20 [facility] [address] [id number] [address] [place] [id number] Jan, [facility] [address] [id number] [address] [place] [address] Jan, shelter (current) use of a nticoagulants Z79.01 [facility] [address] [id number] [address] [place] [address] 17 Jan, 2017 History of DVT (deep vein th rombosis) Z86.718 [facility] [address] [id number] [address] [place] [address] Jan, Generalized anxiety disorder F41.1 and Peripheral edema R60.9 [facility] [address] [id number] [address] [place] [address] Nov, History of DVT (deep vein th rombosis) Z86.718 [facility] [place] [address] [id number] [address] [place] [address] Nov, watermelon inspector (current) use of a nticoagulants Z79.01 [facility] [address] [id number] [address] [place] [address] Nov, Acute non-recurrent maxillar y sinusitis J01.00 [facility] [address] [id number] [address] [place] [address] Oct, shelter (current) use of a nticoagulants Z79.01 [facility] [address] [id number] [address] [place] [address] Oct, Personal history of venous t hrombosis and embolism Z86.718 [facility] [address] [id number] [address] [place] [address] Sep, [facility] [address] [id number] [address] [place] [address] Sep, Personal history of venous t hrombosis and embolism Z86.718 [facility] [address] [id number] [address] [place] [address] Sep, watermelon inspector (current) use of a nticoagulants Z79.01 [facility] [address] [id number] [address] [place] [address] Sep, watermelon inspector (current) use of a nticoagulants Z79.01 [place] [address] [place] [id number] [address] [place] [address] Sep, Generalized anxiety disorder F41.1 and History of DVT (deep vein thrombosis) Z86.718 [facility] [place] [address] [place] [id number] [address] [place] [address] Aug, History of DVT (deep vein th rombosis) Z86.718 ; Generalized anxiety disorder F41.1 ; watermelon inspector (current) use of anticoagulants Z79.01 ; Pelvic pain R10.2 ; Hypertriglyceridemia E78.1 ; Excessive daytime sleepiness G47.19 ; Colon cancer screening Z12.11 ; Screening for breast cancer Z12.39 ; Peripheral edema R60.9 and Gastroesophageal reflux disease, esophagitis presence not specified K21.9 [facility] [address] [address] Aug, [place] [address] [address] July, [place] [address] [address] July, History of DVT (deep vein th rombosis) Z86.718 [facility] [place] [address] [place] [id number] [place] [address] Jun, Generalized anxiety disorder F41.1 [facility] [address] [place] [id number] [place] [address] Jun, History of DVT (deep vein th rombosis) Z86.718 [facility] [place] [address] [place] [id number] [place] [address] Jun, History of DVT (deep vein th rombosis) Z86.718 [facility] [address] [place] [id number] [address] [place] [address] Jun, History of DVT (deep vein th rombosis) Z86.718 [place] [address] [id number] [address] [place] [address] Jun, History of DVT (deep vein th rombosis) Z86.718 [facility] [address] [id number] [address] [place] [address] May, History of DVT (deep vein th rombosis) Z86.718 [facility] [address] [facility] [id number] [address] [place] [address] May, shelter (current) use of a nticoagulants Z79.01 [facility] [address] [id number] [address] [place] [address] May, shelter (current) use of a nticoagulants Z79.01 [facility] [address] [facility] [id number] [address] [place] [address] May, History of DVT (deep vein th rombosis) Z86.718 [facility] [address] [facility] [id number] [address] [place] [address] Apr, Bacterial conjunctivitis of left eye H10.9 and H/O motion sickness Z87.898 [facility] [address] [facility] [id number] [address] [place] [address] 24 Apr, 2016 History of DVT (deep vein th rombosis) Z86.718 [facility] [address] [facility] [id number] [address] [place] [address] Apr, History of DVT (deep vein th rombosis) Z86.718 [facility] [address] [id number] [address] [place] [address] 15 Apr, 2016 History of DVT (deep vein th rombosis) Z86.718 [facility] [address] [facility] [id number] [address] [place] [address] 14 Apr, 2016 watermelon inspector (current) use of a nticoagulants Z79.01 [facility] [address] [id number] [address] [place] [address] Mar, [facility] [address] [id number] [address] [place] [address] Mar, watermelon inspector (current) use of a nticoagulants Z79.01 [facility] [address] [id number] [address] [place] [address] Mar, Hypertriglyceridemia E78.1 a nd watermelon inspector (current) use of anticoagulants Z79.01 [facility] [address] [id number] [address] [place] [address] Feb, watermelon inspector (current) use of a nticoagulants Z79.01 [facility] [address] [id number] [address] [place] [address] Feb, watermelon inspector (current) use of a nticoagulants Z79.01 [facility] [address] [id number] [address] [place] [address] Feb, watermelon inspector (current) use of a nticoagulants Z79.01 [facility] [address] [id number] [address] [place] [address] Dec, [facility] [address] [id number] [address] [place] [address] Nov, [facility] [address] [id number] [address] [place] [address] Nov, History of DVT (deep vein th rombosis) Z86.718 ; Tremulousness R25.1 ; Generalized anxiety disorder F41.1 ; Peripheral edema R60.9 and Hypertriglyceridemia E78.1 [facility] [address] [id number] [address] [place] [phone] Oct, History of DVT (deep vein th rombosis) Z86.718 [facility] [address] [id number] [address] [place] [address] Oct, [facility] [address] [id number] [address] [place] [id number] Sep, History of DVT (deep vein th rombosis) Z86.718 [facility] [address] [id number] [address] [place] [id number] Sep, shelter (current) use of a nticoagulants Z79.01 [facility] [address] [id number] [address] [place] [phone] July, [facility] [address] [id number] [address] [place] [phone] July, shelter (current) use of a nticoagulants Z79.01 [facility] [address] [id number] [address] [place] [phone] July, watermelon inspector (current) use of a nticoagulants Z79.01 [facility] [address] [address] [facility] [id number] [address] [place] [phone] Jun, watermelon inspector (current) use of a nticoagulants Z79.01 [facility] [address] [id number] [address] [place] [id number] Jun, Coccyx pain M53.3 ; Encounte r for therapeutic drug level monitoring Z51.81 and watermelon inspector current use 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.01 [facility] [address] [id number] [address] [place] [phone] May, Abnormal mammogram R92.8 [facility] [address] [id number] [address] [place] [phone] May, [facility] [address] [id number] [address] [place] [phone] May, Acute vaginitis N76.0 and En counter for other screening for malignant neoplasm of breast Z12.39 [facility] [address] [id number] [address] [place] [phone] Apr, [facility] [address] [address] [facility] [id number] [address] [place] [phone] Apr, [facility] [address] [id number] [address] [place] [id number] Apr, Peripheral edema R60.9 [facility] [address] [id number] [address] [place] [id number] Apr, shelter (current) use of a nticoagulants Z79.01 [facility] [address] [id number] [address] [place] [id number] Apr, Peripheral edema R60.9 and L jose martin term (current) 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 Z79.01 [facility] [address] [id number] [address] [place] [phone] Apr, watermelon inspector (current) use of a nticoagulants Z79.01 [facility] [address] [id number] [address] [place] [phone] Apr, [facility] [address] [id number] [address] [place] [phone] Apr, shelter (current) use of a nticoagulants Z79.01 [facility] [address] [id number] [address] [place] [phone] Apr, Peripheral edema R60.9 [facility] [address] [id number] [address] [place] [id number] Mar, shelter (current) use of a nticoagulants Z79.01 [facility] [address] [id number] [address] [place] [phone] Mar, shelter (current) use of a nticoagulants Z79.01 and Hypertriglyceridemia E78.1 [facility] [address] [id number] [address] [place] [id number] Mar, shelter (current) use of a nticoagulants Z79.01 [facility] [address] [id number] [address] [place] [phone] Mar, watermelon inspector (current) use of a nticoagulants Z79.01 [facility] [address] [id number] [address] [place] [id number] Mar, [facility] [address] [id number] [address] [place] [id number] Mar, shelter (current) use of a nticoagulants Z79.01 ; Hypertriglyceridemia E78.1 ; Personal history of venous thrombosis and embolism Z86.718 and Lump R22.9 [facility] [address] [id number] [address] [place] [id number] Mar, Personal history of venous t hrombosis and embolism Z86.718 [facility] [address] [id number] [address] [place] [address] Mar, Personal history of venous t hrombosis and embolism Z86.718 [facility] [address] [id number] [address] [place] [id number] Mar, [facility] [address] [id number] [address] [place] [id number] Dec, Personal history of venous t hrombosis and embolism Z86.718 [facility] [address] [id number] [address] [place] [address] Dec, Personal history of venous t hrombosis and embolism V12.51 [facility] [address] [id number] [address] [place] [id number] 28 Nov, 2014 Personal history of venous t hrombosis and embolism V12.51 [facility] [address] [id number] [address] [place] [id number] 25 Nov, 2014 Personal history of venous t hrombosis and embolism V12.51 [facility] [address] [id number] [address] [place] [id number] 17 Nov, 2014 Personal history of venous t hrombosis and embolism V12.51 [facility] [address] [id number] [address] [place] [phone] Nov, Personal history of venous t hrombosis and embolism V12.51 [facility] [address] [id number] [address] [place] [id number] Nov, [facility] [address] [id number] [address] [place] [address] Oct, Dysuria 788.1 [facility] [address] [id number] [address] [place] [id number] Oct, Personal history of venous t hrombosis and embolism V12.51 [facility] [address] [id number] [address] [place] [id number] Oct, [facility] [address] [id number] [address] [place] [phone] Oct, Personal history of venous t hrombosis and embolism V12.51 [facility] [address] [id number] [address] [place] [phone] Sep, Personal history of venous t hrombosis and embolism V12.51 [facility] [address] [id number] [address] [place] [phone] Sep, Personal history of venous t hrombosis and embolism V12.51 [facility] [address] [id number] [address] [place] [phone] Aug, Personal history of venous t hrombosis and embolism V12.51 [facility] [address] [id number] [address] [place] [id number] Aug, Personal history of venous t hrombosis and embolism V12.51 [facility] [address] [id number] [address] [place] [phone] Aug, Personal history of venous t hrombosis and embolism V12.51 [facility] [address] [id number] [address] [place] [id number] July, Generalized anxiety disorder 300.02 ; Abdominal pain, left lower quadrant 789.04 and Personal history of venous thrombosis and embolism V12.51 [facility] [address] [id number] [address] [place] [address], [place] [address] [address] Jun, [address] [facility] [address] [id number] [address] [place] [id number] 13 Jun, 2014 [facility] [address] [id number] [address] [place] [phone] May, [facility] [address] [id number] [address] [place] [phone] May, [facility] [address] [id number] [address] [place] [id number] May, [facility] [address] [id number] [address] [place] [phone] May, [facility] [address] [id number] [address] [place] [id number] May, [facility] [address] [id number] [address] [place] [id number] May, [facility] [address] [id number] [address] [place] [id number] May, [facility] [address] [id number] [address] [place] [phone] May, [facility] [address] [id number] [address] [place] [id number] Apr, [facility] [address] [id number] [address] [place] [phone] Apr, [facility] [address] [id number] [address] [place] [id number] Apr, [facility] [address] [id number] [address] [place] [phone] Apr, [facility] [address] [id number] [address] [place] [phone] Apr, [facility] [address] [id number] [address] [place] [address], [place] [address] Mar, [facility] [address] [id number] [address] [place] [address], [place] [address] Mar, [facility] [address] [id number] [address] [place] [address], [place] [address] Mar, [facility] [address] [id number] [address] [place] [address], [place] [address] Mar, [facility] [address] [id number] [address] [place] [address], [place] [address] Mar, [facility] [address] [id number] [address] [place] [address], [place] [address] Mar, [facility] [address] [id number] [address] [place] [address], [place] [address] Feb, [facility] [address] [id number] [address] [place] [address], [place] [address] Feb, [facility] [address] [id number] [address] [place] [address], [place] [address] Feb, [facility] [address] [id number] [address] [place] [address], [place] [address] Feb, [facility] [address] [id number] [address] [place] [address], [place] [address] Feb, [facility] [address] [id number] [address] [place] [address], [place] [address] Feb, [facility] [address] [id number] [address] [place] [address], [place] [address] Feb, [facility] [address] [id number] [address] [place] [address], [place] [address] Feb, [facility] [address] [id number] [address] [place] [address], [place] [address] Feb, [facility] [address] [id number] [address] [place] [address], [place] [address] Feb, [facility] [address] [id number] [address] [place] [address], [place] [address] Jan, [facility] [address] [id number] [address] [place] [address], [place] [address] Jan, [facility] [address] [id number] [address] [place] [address], [place] [address] Jan, [facility] [address] [id number] [address] [place] [address], [place] [address] Jan, [facility] [address] [id number] [address] [place] [address], [place] [address] Jan, [facility] [address] [id number] [address] [place] [address], [place] [address] Jan, [facility] [address] [id number] [address] [place] [address], [place] [address] Jan, [facility] [address] [id number] [address] [place] [address], [place] [address] Jan, [facility] [address] [id number] [address] [place] [address], [place] [address] Jan, [facility] [address] [id number] [address] [place] [address], [place] [address] Jan, [facility] [address] [id number] [address] [place] [address], [place] [address] Dec, [facility] [address] [id number] [address] [place] [address], [place] [address] Dec, [facility] [address] [id number] [address] [place] [address], [place] [address] Dec, [facility] [address] [id number] [address] [place] [address], [place] [address] Dec, [facility] [address] [id number] [address] [place] [address], [place] [address] Dec, [facility] [address] [id number] [address] [place] [address], [place] [address] Dec, [facility] [address] [id number] [address] [place] [address], [place] [address] Dec, [facility] [address] [id number] [address] [place] [address], [place] [address] Dec, [facility] [address] [id number] [address] [place] [address], [place] [address] Dec, [facility] [address] [id number] [address] [place] [address], [place] [address] Dec, [facility] [address] [id number] [address] [place] [address], [place] [address] Dec, [facility] [address] [id number] [address] [place] [address], [place] [address] Dec, [facility] [address] [id number] [address] [place] [address], [place] [address] Dec, [facility] [address] [id number] [address] [place] [address], [place] [address] Dec, [facility] [address] [id number] [address] [place] [address], [place] [address] Dec, [facility] [address] [id number] [address] [place] [address], [place] [address] 30 Nov, 2013 [facility] [address] [id number] [address] [place] [address], [place] [address] 30 Nov, 2013 [facility] [address] [id number] [address] [place] [address], [place] [address] 26 Nov, 2013 [facility] [address] [id number] [address] [place] [address], [place] [address] 26 Nov, 2013 [facility] [address] [id number] [address] [place] [address], [place] [address] 24 Nov, 2013 [facility] [address] [id number] [address] [place] [address], [place] [address] 24 Sep, 2013 [facility] [address] [id number] [facility] [place] [address] 23 Sep, 2013 [facility] [address] [id number] [facility] [place] [address] 23 Nov, 2013 [facility] [address] [id number] [address] [place] [address], [place] [address] 18 Nov, 2013 [facility] [address] [id number] [address] [place] [address], [place] [address] 18 Nov, 2013 [facility] [address] [id number] [address] [place] [address], [place] [address] 17 Nov, 2013 [facility] [address] [id number] [address] [place] [address], [place] [address] 17 Nov, 2013 [facility] [address] [id number] [address] [place] [address], [place] [address] 11 Nov, 2013 [facility] [address] [id number] [address] [place] [address], [place] [address] 11 Nov, 2013 [facility] [address] [id number] [address] [place] [address], [place] [address] 10 Nov, 2013 [facility] [address] [id number] [address] [place] [address], [place] [address] 10 Nov, 2013 [facility] [address] [id number] [address] [place] [address], [place] [address] 08 Nov, 2013 [facility] [address] [id number] [address] [place] [address], [place] [address] 08 Nov, 2013 [facility] [address] [id number] [address] [place] [address], [place] [address] Sep, [facility] [address] [id number] [address] [place] [address], [place] [address] Sep, 2013 [facility] [address] [id number] [address] [place] [address], [place] [address] Sep, 2013 [facility] [address] [id number] [facility] [place] [address] Sep, [facility] [address] [id number] [facility] [place] [address] Sep, [facility] [address] [id number] [facility] [place] [address] Sep, [facility] [address] [id number] [address] [place] [address], [place] [address] Aug, [facility] [address] [id number] [address] [place] [address], [place] [address] Aug, [facility] [address] [id number] [address] [place] [address], [place] [address] Aug, [facility] [address] [id number] [address] [place] [address], [place] [address] Aug, [facility] [address] [id number] [address] [place] [address], [place] [address] Aug, [facility] [address] [id number] [address] [place] [address], [place] [address] Aug, [facility] [address] [id number] [address] [place] [address], [place] [address] Aug, [facility] [address] [id number] [address] [place] [address], [place] [address] Aug, [facility] [address] [id number] [address] [place] [address], [place] [address] Aug, [facility] [address] [id number] [address] [place] [address], [place] [address] Aug, [facility] [address] [id number] [address] [place] [address], [place] [address] Aug, [facility] [address] [id number] [address] [place] [address], [place] [address] July, [facility] [address] [id number] [address] [place] [address], [place] [address] July, [facility] [address] [id number] [address] [place] [address], [place] [address] Jun, [facility] [address] [id number] [address] [place] [address], [place] [address] Jun, [facility] [address] [id number] [address] [place] [address], [place] [address] Jun, [facility] [address] [id number] [address] [place] [address], [place] [address] Jun, [facility] [address] [id number] [address] [place] [address], [place] [address] Jun, [facility] [address] [id number] [address] [place] [address], [place] [address] Jun, [facility] [address] [id number] [address] [place] [address], [place] [address] Jun, [facility] [address] [id number] [address] [place] [address], [place] [address] Jun, [facility] [address] [id number] [address] [place] [address], [place] [address] Jun, [facility] [address] [id number] [address] [place] [address], [place] [address] Jun, [facility] [address] [id number] [address] [place] [address], [place] [address] Jun, [facility] [address] [id number] [address] [place] [address], [place] [address] Jun, [facility] [address] [id number] [address] [place] [address], [place] [address] May, [facility] [address] [id number] [address] [place] [address], [place] [address] May, [facility] [address] [id number] [address] [place] [address], [place] [address] May, [facility] [address] [id number] [address] [place] [address], [place] [address] May, [facility] [address] [id number] [facility] [place] [address] May, [facility] [address] [id number] [address] [place] [address], [place] [address] May, [facility] [address] [id number] [address] [place] [address], [place] [address] May, [facility] [address] [id number] [address] [place] [address], [place] [address] May, [facility] [address] [id number] [address] [place] [address], [place] [address] May, [facility] [address] [id number] [address] [place] [address], [place] [address] May, [facility] [address] [id number] [address] [place] [address], [place] [address] May, [facility] [address] [id number] [address] [place] [address], [place] [address] May, [facility] [address] [id number] [address] [place] [address], [place] [address] Apr, [facility] [address] [id number] [address] [place] [address], [place] [address] Apr, [facility] [address] [id number] [address] [place] [address], [place] [address] Apr, [facility] [address] [id number] [address] [place] [address], [place] [address] Apr, [facility] [address] [id number] [address] [place] [address], [place] [address] Apr, [facility] [address] [id number] [address] [place] [address], [place] [address] Apr, [facility] [address] [id number] [address] [place] [address], [place] [address] Apr, [facility] [address] [id number] [address] [place] [address], [place] [address] Apr, [facility] [address] [id number] [address] [place] [address], [place] [address] Apr, [facility] [address] [id number] [address] [place] [address], [place] [address] Apr, [facility] [address] [id number] [address] [place] [address], [place] [address] Apr, [facility] [address] [id number] [address] [place] [address], [place] [address] Apr, [facility] [address] [id number] [address] [place] [address], [place] [address] Apr, [facility] [address] [id number] [address] [place] [address], [place] [address] Apr, [facility] [address] [id number] [address] [place] [address], [place] [address] Apr, [facility] [address] [id number] [address] [place] [address], [place] [address] Apr, [facility] [address] [id number] [address] [place] [address], [place] [address] Apr, [facility] [address] [id number] [address] [place] [address], [place] [address] Jan, [facility] [address] [id number] [address] [place] [address], [place] [address] Jan, [facility] [address] [id number] [address] [place] [address], [place] [address] Jan, [facility] [address] [id number] [address] [place] [address], [place] [address] Jan, [facility] [address] [id number] [address] [place] [address], [place] [address] Jan, [facility] [address] [id number] [address] [place] [address], [place] [address] 07 Jan, 2013 [facility] [address] [id number] [address] [place] [address], [place] [address] Jan, [facility] [address] [id number] [address] [place] [address], [place] [address] Dec, [facility] [address] [id number] [address] [place] [address], [place] [address] Dec, [facility] [address] [id number] [address] [place] [address], [place] [address] Dec, [facility] [address] [id number] [address] [place] [address], [place] [address] Nov, [facility] [address] [id number] [address] [place] [address], [place] [address] Nov, [facility] [address] [id number] [address] [place] [address], [place] [address] 05 Nov, 2012 [facility] [address] [id number] [address] [place] [address], [place] [address] Nov, [facility] [address] [id number] [address] [place] [address], [place] [address] Oct, [facility] [address] [id number] [address] [place] [address], [place] [address] Oct, [facility] [address] [id number] [address] [place] [address], [place] [address] Oct, [facility] [address] [id number] [address] [place] [address], [place] [address] Oct, [facility] [address] [id number] [address] [place] [address], [place] [address] Oct, [facility] [address] [id number] [address] [place] [address], [place] [address] Sep, [facility] [address] [id number] [address] [place] [address], [place] [address] Sep, [facility] [address] [id number] [address] [place] [address], [place] [address] Sep, [facility] [address] [id number] [address] [place] [address], [place] [address] Sep, [facility] [address] [id number] [address] [place] [address], [place] [address] Sep, [facility] [address] [id number] [address] [place] [address], [place] [address] Sep, [facility] [address] [id number] [address] [place] [address], [place] [address] Sep, [facility] [address] [id number] [address] [place] [address], [place] [address] Aug, [facility] [address] [id number] [address] [place] [address], [place] [address] Aug, [facility] [address] [id number] [address] [place] [address], [place] [address] July, [facility] [address] [id number] [address] [place] [address], [place] [address] Jun, [facility] [address] [id number] [address] [place] [address], [place] [address] Jun, [facility] [address] [id number] [address] [place] [address], [place] [address] Jun, [facility] [address] [id number] [address] [place] [address], [place] [address] Apr, [facility] [address] [id number] [address] [place] [address], [place] [address] Apr, [facility] [address] [id number] [address] [place] [address], [place] [address] Apr, [facility] [address] [id number] [address] [place] [address], [place] [address] Mar, [facility] [address] [id number] [address] [place] [address], [place] [address] 24 Mar, 2012 [facility] [address] [id number] [address] [place] [address], [place] [address] 2012 [facility] [address] [id number] [address] [place] [address], [place] [address] 09 Mar, 2012 [facility] [address] [id number] [address] [place] [address], [place] [address] Mar, [facility] [address] [id number] [address] [place] [address], [place] [address] 14 Feb, 2012 [facility] [address] [id number] [address] [place] [address], [place] [address] 14 Feb, 2012 [facility] [address] [id number] [address] [place] [address], [place] [address] Jan, [facility] [address] [id number] [address] [place] [address], [place] [address] Jan, [facility] [address] [id number] [address] [place] [address], [place] [address] Jan, [facility] [address] [id number] [address] [place] [address], [place] [address] 13 Jan, 2012 [facility] [address] [id number] [address] [place] [address], [place] [address] Jan, [facility] [address] [id number] [address] [place] [address], [place] [address] 07 Jan, 2012 [facility] [address] [id number] [address] [place] [address], [place] [address] Jan, [facility] [address] [id number] [address] [place] [address], [place] [address] Dec, [facility] [address] [id number] [address] [place] [address], [place] [address] Dec, [facility] [address] [id number] [address] [place] [address], [place] [address] 30 Dec, 2011 [facility] [address] [id number] [address] [place] [address], [place] [address] Dec, [facility] [address] [id number] [address] [place] [address], [place] [address] Dec, [facility] [address] [id number] [address] [place] [address], [place] [address] Dec, [facility] [address] [id number] [address] [place] [address], [place] [address] Dec, [facility] [address] [id number] [address] [place] [address], [place] [address] Dec, [facility] [address] [id number] [address] [place] [address], [place] [address] Dec, [facility] [address] [id number] [address] [place] [address], [place] [address] Dec, [facility] [address] [id number] [address] [place] [address], [place] [address] Oct, [facility] [address] [id number] [address] [place] [address], [place] [address] Oct, [facility] [address] [id number] [address] [place] [address], [place] [address] Aug, [facility] [address] [id number] [address] [place] [address], [place] [address] Aug, [facility] [address] [id number] [address] [place] [address], [place] [address] July, [facility] [address] [id number] [address] [place] [address], [place] [address] Jun, [facility] [address] [id number] [address] [place] [address], [place] [address] Jun, [facility] [address] [id number] [address] [place] [address], [place] [address] May, [facility] [address] [id number] [address] [place] [address], [place] [address] Apr, [facility] [address] [id number] [address] [place] [address], [place] [address] 16 Apr, 2011 [facility] [address] [id number] [address] [place] [address], [place] [address] Mar, [facility] [address] [id number] [address] [place] [id number] Mar, [facility] [address] [id number] [address] [place] [id number] Feb, [facility] [address] [id number] [address] [place] [address], [place] [address] 15 Feb, 2011 [facility] [address] [id number] [address] [place] [id number] 13 Feb, 2011 [facility] [address] [id number] [address] [place] [address], [place] [address] Feb, [facility] [address] [id number] [address] [place] [id number] Jan, [facility] [address] [id number] [address] [place] [id number] 17 Dec, 2010 [facility] [address] [id number] [address] [place] [phone] 08 Feb, 2010 [facility] [address] [id number] [address] [place] [id number] Feb, [facility] [address] [id number] [address] [place] [id number] Feb, [facility] [address] [id number] [address] [place] [address], [place] [address] Feb, [facility] [address] [id number] [address] [place] [id number] 15 Dec, 2009 [facility] [address] [id number] [address] [place] [id number] 15 Dec, 2009 [facility] [address] [id number] [address] [place] [phone] Oct, [facility] [address] [facility] [id number] [address] [place] [phone] Jun, [facility] [address] [facility] [id number] [address] [place] [id number] Feb, [facility] [address] [facility] [id number] [address] [place] [phone] Feb, [facility] [address] [facility] [id number] [address] [place] [id number] Feb, [facility] [address] [facility] [id number] [address] [place] [id number] Dec, IMMUNIZATIONS No Known Immunizations SOCIAL HISTORY Never Assessed REASON FOR VISIT PLAN OF CARE VITAL SIGNS MEDICATIONS Unknown Medications RESULTS No Results PROCEDURES Procedure Date Ordered Result Body Site PROTHROMBIN TIME October 18, 2012 PSYCH DIAGNOSTIC EVALUATION October 18, 2012 INSTRUCTIONS MEDICATIONS ADMINISTERED No Known Medications [...]
--- OUTSIDE RECORDS SUMMARY | 2019-10-19 12:21 | XMS REPORT ---
Author Author Mary Jane FLORES Organization [facility] Address [address] [place] [address] Care Team Providers Care Complaint Inspector Name Role Phone GAGANDEEP FLORES Unavailable PROBLEMS Type Condition ICD9-CM Code IBT51-CH Code Onset Dates Condition S tatus SNOMED Code Problem Thyroid follicular adenoma D34 Act phylicia 876679495 Problem History of DVT (deep vein thrombosis) Z86.718 Active 353473335 Problem Factor V Leiden D68.51 Active 3070 85748 Problem residential (current) use of anticoagulants Z79.01 Active 082454435 Problem Hypertriglyceridemia E78.1 Active 133720611 Problem Presence of IVC filter Z95.828 Active 185485715 Problem 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 Active 116949993 Problem Peripheral edema R60.9 Active 271 184849 Problem Excessive daytime sleepiness G47.19 A ctive [id number] Problem Gastroesophageal reflux disease, esophagitis pre sence not specified K21.9 Active 710660345 Problem Chronic pain due to trauma G89.21 Act phylicia 969640848 Problem Pelvic pain R10.2 Active 70488886 Problem Subclinical hypothyroidism E03.9 Act phylicia 79114338 Problem Generalized anxiety disorder F41.1 A ctive 239670380 Problem Thyroid nodule E04.1 Active 20680 5005 Problem Morbid obesity E66.01 Active 41474 6002 Problem Moderate episode of recurrent major depressive disorder F33.1 Active 771942138 Problem Vitamin D deficiency E55.9 Active 28071265 ALLERGIES No Information ENCOUNTERS Encounter Location Date Diagnosis [facility] [address] [id number] [address] [place] [phone] July, [facility] [address] [id number] [address] [place] [phone] July, Subclinical hypothyroidism E 03.9 and Anemia D64.9 [facility] [address] [id number] [address] [place] [phone] July, Thyroid nodule E04.1 ; Hyper triglyceridemia E78.1 ; Excessive daytime sleepiness G47.19 and Vitamin D deficiency E55.9 [place] [address] [address] [facility] [id number] [address] [place] [address] July, Hypertriglyceridemia E78.1 ; Excessive daytime sleepiness G47.19 ; Vitamin D deficiency E55.9 ; Morbid obesity E66.01 ; Peripheral edema R60.9 ; Generalized anxiety disorder F41.1 and Chronic pain due to trauma G89.21 [place] [address] [address] [facility] [id number] [address] [place] [phone] Jun, [place] [address] [address] [facility] [id number] [address] [place] [phone] Jun, Back pain with history of sp inal surgery M54.9 [place] [address] [id number] [address] [place] [phone] 12 Apr, 2019 Back pain with history of sp inal surgery M54.9 [place] [address] [address] [facility] [id number] [address] [place] [phone] 11 Apr, 2019 [place] [address] [address] [facility] [id number] [address] [place] [phone] 10 Apr, 2019 Gastroenteritis K52.9 ; Back pain with history of spinal surgery M54.9 ; Dermatofibroma of lower leg, unspecified laterality D23.70 and Morbid obesity E66.01 [place] [address] [address] [facility] [id number] [address] [place] [phone] Mar, [place] [address] [address] [facility] [id number] [address] [place] [phone] Jan, [place] [address] [address] [facility] [id number] [address] [place] [phone] Jan, [place] [address] [address] [facility] [id number] [address] [place] [phone] Dec, Encounter for weight managem ent Z76.89 [facility] [address] [facility] [id number] [address] [place] [phone] Dec, Encounter for weight managem ent Z76.89 and Screening mammogram, encounter for Z12.31 [facility] [address] [id number] [address] [place] [phone] 26 Nov, 2018 Encounter for weight managem ent Z76.89 [facility] [address] [id number] [address] [place] [phone] Nov, Thyroid nodule E04.1 [place] [address] [address] [facility] [id number] [address] [place] [phone] Nov, Thyroid nodule E04.1 [facility] [address] [facility] [id number] [address] [place] [phone] 06 Nov, 2018 Thyroid nodule E04.1 [place] [address] [address] [facility] [id number] [address] [place] [phone] Oct, Syncope, unspecified syncope type R55 and Encounter for weight management Z76.89 [facility] [address] [facility] [id number] [address] [place] [phone] Oct, Morbid obesity E66.01 [place] [address] [address] [facility] [id number] [address] [place] [phone] Oct, Hypertriglyceridemia E78.1 [place] [address] [address] [facility] [id number] [address] [place] [phone] Oct, [facility] [address] [facility] [id number] [address] [place] [phone] Oct, Hypertriglyceridemia E78.1 [place] [address] [address] [facility] [id number] [address] [place] [phone] Sep, Hypertriglyceridemia E78.1 a nd Vitamin D deficiency E55.9 [facility] [address] [facility] [id number] [address] [place] [phone] Sep, [facility] [address] [id number] [address] [place] [address] Sep, Morbid obesity E66.01 ; Mode rate episode of recurrent major depressive disorder F33.1 ; Hypertriglyceridemia E78.1 and Vitamin D deficiency E55.9 [facility] [address] [id number] [address] [place] [address] Aug, [facility] [address] [address] July, [facility] [address] [address] July, [place] [address] [address] Jun, [place] [address] [address] Jun, [place] [address] [address] Jun, Closed compression fracture of L3 lumbar vertebra with routine healing, subsequent encounter S32.030D and Drug-induced constipation K59.03 [place] [address] [address] Jun, [facility] [address] [address] Jun, [place] [address] [address] Apr, [facility] [address] [address] Apr, Morbid obesity E66.01 [place] [address] [address] Apr, Morbid obesity E66.01 ; Hype rtriglyceridemia E78.1 ; Gastroesophageal reflux disease, esophagitis presence not specified K21.9 and Joint pain M25.50 [place] [address] [address] Feb, [facility] [address] [facility] [id number] [address] [place] [phone] Feb, [facility] [address] [facility] [id number] [address] [place] [phone] Jan, Acute bacterial conjunctivit is H10.30 [facility] [id number] [place] [phone] 08 Dec, 2017 [facility] [id number] [place] [address] 04 Dec, 2017 [facility] [id number] [place] [phone] 17 Nov, 2017 [facility] [id number] [place] [address] 07 Nov, 2017 Obstructive sleep apnea G47. 33 ; Morbid obesity E66.01 and Gastroesophageal reflux disease, esophagitis presence not specified K21.9 [facility] [address] [facility] [id number] [address] [place] [id number] 06 Nov, 2017 Encounter for examination of eyes and vision without abnormal findings Z01.00 [facility] [address] [id number] [address] [place] [phone] 31 Oct, 2017 Thyroid nodule E04.1 and Scr eening for breast cancer Z12.31 [facility] [address] [id number] [address] [place] [phone] 23 Oct, 2017 History of DVT (deep vein th rombosis) Z86.718 ; Thyroid nodule E04.1 and Gastroesophageal reflux disease, esophagitis presence not specified K21.9 [facility] [address] [id number] [address] [place] [phone] Oct, [facility] [address] [facility] [id number] [address] [place] [address] Sep, [facility] [address] [id number] [address] [place] [address] Aug, [place] [address] [address] Aug, [place] [address] [address] Aug, Acute pain of left shoulder M25.512 and Thyroid nodule E04.1 [place] [address] [address] July, Superior glenoid labrum lesi on of left shoulder, subsequent encounter S43.432D [place] [address] [address] Jun, History of DVT (deep vein th rombosis) Z86.718 [place] [address] [address] Jun, History of DVT (deep vein th rombosis) Z86.718 [place] [address] [address] Jun, Impingement syndrome, should er, left M75.42 [place] [address] [address] May, Subacromial bursitis of left shoulder joint M75.52 [place] [address] [address] May, [place] [address] [address] May, Hypertriglyceridemia E78.1 ; residential (current) use of anticoagulants Z79.01 and Excessive daytime sleepiness G47.19 [place] [address] [address] May, History of DVT (deep vein th rombosis) Z86.718 ; Generalized anxiety disorder F41.1 ; Hypertriglyceridemia E78.1 ; long term care administrator (current) use of anticoagulants Z79.01 ; Subacromial bursitis of left shoulder joint M75.52 and Excessive daytime sleepiness G47.19 [facility] [address] [id number] [address] [place] [phone] May, [facility] [address] [id number] [address] [place] [address] May, long term care administrator (current) use of a nticoagulants Z79.01 [facility] [address] [facility] [id number] [address] [place] [phone] Apr, long term care administrator (current) use of a nticoagulants Z79.01 [facility] [address] [id number] [address] [place] [address] Apr, residential (current) use of a nticoagulants Z79.01 [facility] [address] [id number] [address] [place] [address] Apr, long term care administrator (current) use of a nticoagulants Z79.01 [place] [address] [id number] [address] [place] [address] Apr, [facility] [address] [id number] [address] [place] [phone] Apr, residential (current) use of a nticoagulants Z79.01 [facility] [address] [facility] [id number] [address] [place] [phone] 13 Apr, 2017 long term care administrator (current) use of a nticoagulants Z79.01 [facility] [address] [id number] [address] [place] [address] Apr, long term care administrator (current) use of a nticoagulants Z79.01 [facility] [address] [facility] [id number] [address] [place] [phone] Apr, residential (current) use of a nticoagulants Z79.01 [facility] [address] [facility] [id number] [address] [place] [phone] 07 Apr, 2017 residential (current) use of a nticoagulants Z79.01 [facility] [address] [id number] [address] [place] [address] Apr, residential (current) use of a nticoagulants Z79.01 [facility] [address] [id number] [address] [place] [address] Mar, long term care administrator (current) use of a nticoagulants Z79.01 [facility] [address] [id number] [address] [place] [address] Mar, [facility] [address] [id number] [address] [place] [phone] Mar, residential (current) use of a nticoagulants Z79.01 [facility] [address] [id number] [address] [place] [phone] Jan, Dental examination Z01.20 [facility] [address] [id number] [address] [place] [id number] Jan, [facility] [address] [id number] [address] [place] [phone] Jan, long term care administrator (current) use of a nticoagulants Z79.01 [facility] [address] [id number] [address] [place] [address] Jan, History of DVT (deep vein th rombosis) Z86.718 [facility] [address] [id number] [address] [place] [phone] Jan, Generalized anxiety disorder F41.1 and Peripheral edema R60.9 [facility] [address] [id number] [address] [place] [address] Nov, History of DVT (deep vein th rombosis) Z86.718 [facility] [address] [id number] [address] [place] [address] Nov, long term care administrator (current) use of a nticoagulants Z79.01 [facility] [address] [facility] [id number] [address] [place] [phone] Nov, Acute non-recurrent maxillar y sinusitis J01.00 [facility] [address] [facility] [id number] [address] [place] [address] Oct, residential (current) use of a nticoagulants Z79.01 [facility] [address] [id number] [address] [place] [phone] Oct, Personal history of venous t hrombosis and embolism Z86.718 [place] [address] [facility] [id number] [address] [place] [address] Sep, [place] [address] [id number] [address] [place] [address] Sep, Personal history of venous t hrombosis and embolism Z86.718 [place] [id number] [place] [address] Sep, residential (current) use of a nticoagulants Z79.01 [place] [address] [id number] [address] [place] [phone] Sep, long term care administrator (current) use of a nticoagulants Z79.01 [place] [address] [id number] [address] [place] [address] Sep, Generalized anxiety disorder F41.1 and History of DVT (deep vein thrombosis) Z86.718 [place] [address] [address] [id number] [address] [place] [address] Aug, History of DVT (deep vein th rombosis) Z86.718 ; Generalized anxiety disorder F41.1 ; residential (current) use of anticoagulants Z79.01 ; Pelvic pain R10.2 ; Hypertriglyceridemia E78.1 ; Excessive daytime sleepiness G47.19 ; Colon cancer screening Z12.11 ; Screening for breast cancer Z12.39 ; Peripheral edema R60.9 and Gastroesophageal reflux disease, esophagitis presence not specified K21.9 [place] [address] [id number] [address] [place] [phone] Aug, [facility] [address] [facility] [id number] [address] [place] [phone] July, [facility] [address] [facility] [id number] [address] [place] [phone] July, History of DVT (deep vein th rombosis) Z86.718 [place] [address] [facility] [id number] [address] [place] [address] Jun, Generalized anxiety disorder F41.1 [place] [address] [id number] [address] [place] [phone] Jun, History of DVT (deep vein th rombosis) Z86.718 [place] [address] [facility] [id number] [address] [place] [phone] Jun, History of DVT (deep vein th rombosis) Z86.718 [place] [address] [id number] [address] [place] [phone] Jun, History of DVT (deep vein th rombosis) Z86.718 [place] [address] [facility] [id number] [address] [place] [address] Jun, History of DVT (deep vein th rombosis) Z86.718 [place] [address] [facility] [id number] [address] [place] [address] May, History of DVT (deep vein th rombosis) Z86.718 [place] [address] [id number] [address] [place] [address] May, residential (current) use of a nticoagulants Z79.01 [place] [address] [facility] [id number] [address] [place] [phone] May, long term care administrator (current) use of a nticoagulants Z79.01 [place] [address] [id number] [address] [place] [phone] May, History of DVT (deep vein th rombosis) Z86.718 [facility] [address] [facility] [id number] [address] [place] [address] 27 Apr, 2016 Bacterial conjunctivitis of left eye H10.9 and H/O motion sickness Z87.898 [facility] [address] [id number] [address] [place] [phone] 24 Apr, 2016 History of DVT (deep vein th rombosis) Z86.718 [facility] [address] [facility] [id number] [address] [place] [address] Apr, History of DVT (deep vein th rombosis) Z86.718 [facility] [address] [facility] [id number] [address] [place] [address] 15 Apr, 2016 History of DVT (deep vein th rombosis) Z86.718 [facility] [address] [facility] [id number] [address] [place] [phone] 14 Apr, 2016 residential (current) use of a nticoagulants Z79.01 [place] [address] [place] [id number] [address] [place] [phone] Mar, [facility] [address] [facility] [id number] [address] [place] [phone] Mar, long term care administrator (current) use of a nticoagulants Z79.01 [place] [address] [facility] [id number] [address] [place] [address] Mar, Hypertriglyceridemia E78.1 a nd long term care administrator (current) use of anticoagulants Z79.01 [place] [address] [facility] [id number] [address] [place] [phone] Feb, long term care administrator (current) use of a nticoagulants Z79.01 [place] [address] [facility] [id number] [address] [place] [phone] Feb, long term care administrator (current) use of a nticoagulants Z79.01 [facility] [address] [id number] [address] [place] [phone] Feb, long term care administrator (current) use of a nticoagulants Z79.01 [facility] [address] [id number] [address] [place] [phone] Dec, [facility] [address] [id number] [address] [place] [phone] Nov, [facility] [address] [id number] [address] [place] [phone] Nov, History of DVT (deep vein th rombosis) Z86.718 ; Tremulousness R25.1 ; Generalized anxiety disorder F41.1 ; Peripheral edema R60.9 and Hypertriglyceridemia E78.1 [place] [address] [id number] [address] [place] [phone] Oct, History of DVT (deep vein th rombosis) Z86.718 [place] [address] [id number] [address] [place] [phone] Oct, [place] [address] [id number] [address] [place] [phone] Sep, History of DVT (deep vein th rombosis) Z86.718 [facility] [address] [id number] [address] [place] [address] Sep, residential (current) use of a nticoagulants Z79.01 [facility] [address] [id number] [address] [place] [phone] July, [place] [address] [id number] [address] [place] [phone] July, residential (current) use of a nticoagulants Z79.01 [facility] [address] [id number] [address] [place] [address] July, long term care administrator (current) use of a nticoagulants Z79.01 [facility] [address] [facility] [id number] [address] [place] [phone] Jun, residential (current) use of a nticoagulants Z79.01 [facility] [address] [facility] [id number] [address] [place] [phone] Jun, Coccyx pain M53.3 ; Encounte r for therapeutic drug level monitoring Z51.81 and residential current use 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.01 [place] [address] [facility] [id number] [address] [place] [phone] May, Abnormal mammogram R92.8 [facility] [place] [id number] [address] [facility] [id number] [address] [place] [phone] May, [facility] [place] [address] [address] [facility] [id number] [address] [place] [phone] May, Acute vaginitis N76.0 and En counter for other screening for malignant neoplasm of breast Z12.39 [place] [id number] [address] [facility] [id number] [address] [place] [phone] Apr, [place] [address] [address] [facility] [id number] [address] [place] [phone] Apr, [place] [address] [address] [facility] [id number] [address] [place] [phone] Apr, Peripheral edema R60.9 [place] [address] [address] [facility] [id number] [address] [place] [phone] Apr, long term care administrator (current) use of a nticoagulants Z79.01 [place] [id number] N [facility] [id number] [address] [place] [phone] Apr, Peripheral edema R60.9 and L jose martin term (current) 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 Z79.01 [place] [id number] [address] [facility] [id number] [address] [place] [phone] Apr, residential (current) use of a nticoagulants Z79.01 [place] [address] [id number] [address] [place] [address] [address] Apr, [place] [address] [address] [facility] [id number] [address] [place] [phone] Apr, long term care administrator (current) use of a nticoagulants Z79.01 [place] [address] [address] [facility] [id number] [address] [place] [address] Apr, Peripheral edema R60.9 [place] [address] [address] [facility] [id number] [address] [place] [phone] Mar, long term care administrator (current) use of a nticoagulants Z79.01 [place] [address] [address] [facility] [id number] [address] [place] [phone] Mar, long term care administrator (current) use of a nticoagulants Z79.01 and Hypertriglyceridemia E78.1 [place] [address] [address] [facility] [id number] [address] [place] [phone] Mar, residential (current) use of a nticoagulants Z79.01 [place] [address] [address] [facility] [id number] [address] [place] [address] Mar, long term care administrator (current) use of a nticoagulants Z79.01 [place] [address] [address] [facility] [id number] [address] [place] [address] Mar, [place] [address] [address] [facility] [id number] [address] [place] [phone] Mar, long term care administrator (current) use of a nticoagulants Z79.01 ; Hypertriglyceridemia E78.1 ; Personal history of venous thrombosis and embolism Z86.718 and Lump R22.9 [place] [address] [address] [facility] [id number] [address] [place] [address] Mar, Personal history of venous t hrombosis and embolism Z86.718 [id number] N [facility] [id number] [address] [place] [address] Mar, Personal history of venous t hrombosis and embolism Z86.718 [facility] [address] [id number] [address] [place] [address] Mar, [facility] [address] [id number] [address] [place] [address] Dec, Personal history of venous t hrombosis and embolism Z86.718 [facility] [address] [id number] [address] [place] [address] Dec, Personal history of venous t hrombosis and embolism V12.51 [facility] [address] [id number] [address] [place] [address] Nov, Personal history of venous t hrombosis and embolism V12.51 [facility] [address] [id number] [address] [place] [address] Nov, Personal history of venous t hrombosis and embolism V12.51 [facility] [address] [id number] [address] [place] [address] Nov, Personal history of venous t hrombosis and embolism V12.51 [facility] [address] [id number] [address] [place] [address] Nov, Personal history of venous t hrombosis and embolism V12.51 [facility] [address] [id number] [address] [place] [address] Nov, [facility] [address] [id number] [address] [place] [phone] Oct, Dysuria 788.1 [facility] [address] [id number] [address] [place] [phone] Oct, Personal history of venous t hrombosis and embolism V12.51 [facility] [address] [id number] [address] [place] [address] Oct, [facility] [address] [id number] [address] [place] [address] Oct, Personal history of venous t hrombosis and embolism V12.51 [facility] [address] [id number] [address] [place] [phone] Sep, Personal history of venous t hrombosis and embolism V12.51 [facility] [address] [id number] [address] [place] [address] Sep, Personal history of venous t hrombosis and embolism V12.51 [facility] [address] [id number] [address] [place] [phone] Aug, Personal history of venous t hrombosis and embolism V12.51 [facility] [address] [id number] [address] [place] [id number] Aug, Personal history of venous t hrombosis and embolism V12.51 [facility] [address] [id number] [address] [place] [address] Aug, Personal history of venous t hrombosis and embolism V12.51 [facility] [address] [id number] [address] [place] [phone] July, Generalized anxiety disorder 300.02 ; Abdominal pain, left lower quadrant 789.04 and Personal history of venous thrombosis and embolism V12.51 [facility] [address] [id number] [address] [place] [phone] 14 Jun, 2014 [facility] [address] [id number] [address] [place] [address] Jun, [facility] [address] [id number] [address] [place] [phone] May, [facility] [address] [id number] [address] [place] [phone] May, [facility] [address] [id number] [address] [place] [phone] May, [facility] [address] [id number] [address] [place] [phone] May, [facility] [address] [id number] [address] [place] [address], [place] [address] May, [facility] [address] [id number] [address] [place] [address], [place] [address] May, [facility] [address] [id number] [address] [place] [address], [place] [address] May, [facility] [address] [id number] [address] [place] [address], [place] [address] May, [facility] [address] [id number] [address] [place] [address], [place] [address] Apr, [facility] [address] [id number] [address] [place] [address], [place] [address] Apr, [facility] [address] [id number] [address] [place] [address], [place] [address] Apr, [facility] [address] [id number] [address] [place] [address], [place] [address] Apr, [facility] [address] [id number] [address] [place] [address], [place] [address] Apr, [facility] [address] [id number] [address] [place] [address], [place] [address] Mar, [facility] [address] [id number] [address] [place] [address], [place] [address] Mar, [facility] [address] [id number] [address] [place] [address], [place] [address] Mar, [facility] [address] [id number] [address] [place] [address], [place] [address] Mar, [facility] [address] [id number] [address] [place] [address], [place] [address] Mar, [facility] [address] [id number] [address] [place] [address], [place] [address] Mar, [facility] [address] [id number] [address] [place] [address], [place] [address] 17 Feb, 2014 [facility] [address] [id number] [address] [place] [address], [place] [address] Feb, [facility] [address] [id number] [address] [place] [address], [place] [address] Feb, [facility] [address] [id number] [address] [place] [address], [place] [address] Feb, [facility] [address] [id number] [address] [place] [address], [place] [address] Feb, [facility] [address] [id number] [address] [place] [address], [place] [address] Feb, [facility] [address] [id number] [address] [place] [address], [place] [address] Feb, [facility] [address] [id number] [address] [place] [address], [place] [address] Feb, [facility] [address] [id number] [address] [place] [address], [place] [address] Feb, [facility] [address] [id number] [address] [place] [address], [place] [address] Feb, [facility] [address] [id number] [address] [place] [address], [place] [address] Jan, [facility] [address] [id number] [address] [place] [address], [place] [address] Jan, [facility] [address] [id number] [address] [place] [address], [place] [address] Jan, [facility] [address] [id number] [address] [place] [address], [place] [address] Jan, [facility] [address] [id number] [address] [place] [address], [place] [address] Jan, [facility] [address] [id number] [address] [place] [address], [place] [address] Jan, [facility] [address] [id number] [address] [place] [address], [place] [address] Jan, [facility] [address] [id number] [address] [place] [address], [place] [address] Jan, [facility] [address] [id number] [address] [place] [address], [place] [address] Jan, [facility] [address] [id number] [address] [place] [address], [place] [address] Jan, [facility] [address] [id number] [address] [place] [address], [place] [address] Dec, [facility] [address] [id number] [address] [place] [address], [place] [address] Dec, [facility] [address] [id number] [address] [place] [address], [place] [address] Dec, [facility] [address] [id number] [address] [place] [address], [place] [address] Dec, [facility] [address] [id number] [address] [place] [address], [place] [address] Dec, [facility] [address] [id number] [address] [place] [phone] Dec, [facility] [address] [id number] [address] [place] [address] Dec, [facility] [address] [id number] [address] [place] [address] Dec, [facility] [address] [id number] [address] [place] [address], [place] [address] Dec, [facility] [address] [id number] [address] [place] [address], [place] [address] Dec, [facility] [address] [id number] [address] [place] [phone] Dec, [facility] [address] [id number] [address] [place] [address] Dec, [facility] [address] [id number] [address] [place] [address], [place] [address] Dec, [facility] [address] [id number] [address] [place] [address], [place] [address] Dec, [facility] [address] [id number] [address] [place] [address], [place] [address] Dec, [facility] [address] [id number] [address] [place] [address], [place] [address] 30 Nov, 2013 [facility] [address] [id number] [address] [place] [address], [place] [address] 30 Nov, 2013 [facility] [address] [id number] [address] [place] [address], [place] [address] 26 Nov, 2013 [facility] [address] [id number] [address] [place] [address], [place] [address] 26 Nov, 2013 [facility] [address] [id number] [address] [place] [address], [place] [address] 24 Nov, 2013 [facility] [address] [id number] [address] [place] [address], [place] [address] 24 Nov, 2013 [facility] [address] [id number] [address] [place] [address], [place] [address] 23 Nov, 2013 [facility] [address] [id number] [address] [place] [address], [place] [address] 23 Nov, 2013 [facility] [address] [id number] [address] [place] [address], [place] [address] 18 Nov, 2013 [facility] [address] [id number] [address] [place] [address], [place] [address] 18 Nov, 2013 [facility] [address] [id number] [address] [place] [address], [place] [address] 17 Nov, 2013 [facility] [address] [id number] [address] [place] [address], [place] [address] 17 Nov, 2013 [facility] [address] [id number] [facility] [place] [address] 11 Nov, 2013 [facility] [address] [id number] [facility] [place] [address] 11 Nov, 2013 [facility] [address] [id number] [facility] [place] [address] 10 Nov, 2013 [facility] [address] [id number] [facility] [place] [address] 10 Nov, 2013 [facility] [address] [id number] [facility] [place] [address] 08 Nov, 2013 [facility] [address] [id number] [facility] [place] [address] Nov, [facility] [address] [id number] [address] [place] [address], [place] [address] Sep, [facility] [address] [id number] [address] [place] [address], [place] [address] Sep, [facility] [address] [id number] [address] [place] [address], [place] [address] Sep, [facility] [address] [id number] [address] [place] [address], [place] [address] Sep, [facility] [address] [id number] [address] [place] [address], [place] [address] Sep, [facility] [address] [id number] [address] [place] [address], [place] [address] Sep, [facility] [address] [id number] [address] [place] [address], [place] [address] Aug, [facility] [address] [id number] [address] [place] [address], [place] [address] Aug, [facility] [address] [id number] [address] [place] [address], [place] [address] Aug, [facility] [address] [id number] [address] [place] [address], [place] [address] Aug, [facility] [address] [id number] [facility] [place] [address] Aug, [facility] [address] [id number] [address] [place] [address], [place] [address] Aug, [facility] [address] [id number] [address] [place] [address], [place] [address] Aug, [facility] [address] [id number] [address] [place] [address], [place] [address] Aug, [facility] [address] [id number] [address] [place] [address], [place] [address] Aug, [facility] [address] [id number] [address] [place] [address], [place] [address] Aug, [facility] [address] [id number] [address] [place] [address], [place] [address] Aug, [facility] [address] [id number] [address] [place] [address], [place] [address] July, [facility] [address] [id number] [address] [place] [address], [place] [address] July, [facility] [address] [id number] [address] [place] [address], [place] [address] Jun, [facility] [address] [id number] [address] [place] [address], [place] [address] Jun, [facility] [address] [id number] [address] [place] [address], [place] [address] Jun, [facility] [address] [id number] [address] [place] [address], [place] [address] Jun, [facility] [address] [id number] [address] [place] [address], [place] [address] Jun, [facility] [address] [id number] [address] [place] [address], [place] [address] Jun, [facility] [address] [id number] [facility] [place] [address] 15 Jun, 2013 [facility] [address] [id number] [address] [place] [address], [place] [address] 15 Jun, 2013 [facility] [address] [id number] [facility] [place] [address] 11 Jun, 2013 [facility] [address] [id number] [address] [place] [address], [place] [address] Jun, [facility] [address] [id number] [address] [place] [address], [place] [address] Jun, [facility] [address] [id number] [address] [place] [address], [place] [address] Jun, [facility] [address] [id number] [address] [place] [address], [place] [address] May, [facility] [address] [id number] [address] [place] [address], [place] [address] May, [facility] [address] [id number] [address] [place] [address], [place] [address] May, [facility] [address] [id number] [address] [place] [address], [place] [address] May, [facility] [address] [id number] [address] [place] [address], [place] [address] May, [facility] [address] [id number] [address] [place] [address], [place] [address] May, [facility] [address] [id number] [address] [place] [address], [place] [address] May, [facility] [address] [id number] [address] [place] [address], [place] [address] May, [facility] [address] [id number] [address] [place] [address], [place] [address] May, [facility] [address] [id number] [address] [place] [address], [place] [address] May, [facility] [address] [id number] [facility] [place] [address] May, [facility] [address] [id number] [address] [place] [address], [place] [address] May, [facility] [address] [id number] [address] [place] [address], [place] [address] Apr, [facility] [address] [id number] [address] [place] [address], [place] [address] Apr, [facility] [address] [id number] [address] [place] [address], [place] [address] Apr, [facility] [address] [id number] [address] [place] [address], [place] [address] Apr, [facility] [address] [id number] [address] [place] [address], [place] [address] Apr, [facility] [address] [id number] [address] [place] [address], [place] [address] Apr, [facility] [address] [id number] [address] [place] [address], [place] [address] Apr, [facility] [address] [id number] [address] [place] [address], [place] [address] Apr, [facility] [address] [id number] [address] [place] [address], [place] [address] Apr, [facility] [address] [id number] [address] [place] [address], [place] [address] Apr, [facility] [address] [id number] [address] [place] [address], [place] [address] Apr, [facility] [address] [id number] [address] [place] [address], [place] [address] Apr, [facility] [address] [id number] [address] [place] [address], [place] [address] Apr, [facility] [address] [id number] [address] [place] [address], [place] [phone] 20 Apr, 2013 [facility] [address] [id number] [address] [place] [address], [place] [address] Apr, 2013 [facility] [address] [id number] [address] [place] [address], [place] [address] Apr, 2013 [facility] [address] [id number] [address] [place] [address], [place] [address] Apr, 2013 [facility] [address] [id number] [address] [place] [address], [place] [address] Jan, [facility] [address] [id number] [address] [place] [address], [place] [address] Jan, [facility] [address] [id number] [address] [place] [address], [place] [address] Jan, [facility] [address] [id number] [address] [place] [address], [place] [address] Jan, [facility] [address] [id number] [address] [place] [address], [place] [address] Jan, [facility] [address] [id number] [address] [place] [address], [place] [address] Jan, [facility] [address] [id number] [address] [place] [address], [place] [address] Jan, [facility] [address] [id number] [address] [place] [address], [place] [address] Dec, [facility] [address] [id number] [address] [place] [address], [place] [address] Dec, [facility] [address] [id number] [address] [place] [address], [place] [address] Dec, [facility] [address] [id number] [address] [place] [address], [place] [phone] 10 Nov, 2012 [facility] [address] [id number] [address] [place] [address], [place] [address] Nov, [facility] [address] [id number] [address] [place] [address], [place] [address] Nov, [facility] [address] [id number] [address] [place] [address], [place] [address] Nov, [facility] [address] [id number] [address] [place] [address], [place] [address] Oct, [facility] [address] [id number] [address] [place] [address], [place] [address] Oct, [facility] [address] [id number] [address] [place] [address], [place] [address] Oct, [facility] [address] [id number] [address] [place] [address], [place] [address] Oct, [facility] [address] [id number] [address] [place] [address], [place] [address] Oct, [facility] [address] [id number] [address] [place] [address], [place] [address] Sep, [facility] [address] [id number] [address] [place] [address], [place] [address] Sep, [facility] [address] [id number] [address] [place] [address], [place] [address] Sep, [facility] [address] [id number] [address] [place] [address], [place] [address] Sep, [facility] [address] [id number] [address] [place] [address], [place] [address] Sep, [facility] [address] [id number] [address] [place] [address], [place] [address] Sep, [facility] [address] [id number] [address] [place] [address], [place] [address] Sep, [facility] [address] [id number] [address] [place] [address], [place] [address] Aug, [facility] [address] [id number] [address] [place] [address], [place] [phone] 07 Aug, 2012 [facility] [address] [id number] [address] [place] [address], [place] [address] July, [facility] [address] [id number] [address] [place] [address], [place] [address] Jun, [facility] [address] [id number] [address] [place] [address], [place] [address] Jun, [facility] [address] [id number] [address] [place] [address], [place] [address] Jun, [facility] [address] [id number] [address] [place] [address], [place] [address] Apr, [facility] [address] [id number] [address] [place] [address], [place] [address] Apr, [facility] [address] [id number] [address] [place] [address], [place] [address] Apr, [facility] [address] [id number] [address] [place] [address], [place] [phone] Mar, [facility] [address] [id number] [address] [place] [address], [place] [phone] Mar, [facility] [address] [id number] [address] [place] [address], [place] [phone] Mar, [facility] [address] [id number] [address] [place] [address], [place] [phone] Mar, [facility] [address] [id number] [address] [place] [address], [place] [phone] Mar, [facility] [address] [id number] [address] [place] [address], [place] [phone] 14 Feb, 2012 [facility] [address] [id number] [address] [place] [address], [place] [phone] 14 Feb, 2012 [facility] [address] [id number] [address] [place] [address], [place] [phone] Jan, [facility] [address] [id number] [address] [place] [address], [place] [phone] 13 Jan, 2012 [facility] [address] [id number] [address] [place] [address], [place] [phone] Jan, [facility] [address] [id number] [address] [place] [address], [place] [phone] Jan, [facility] [address] [id number] [address] [place] [address], [place] [phone] Jan, [facility] [address] [id number] [address] [place] [address], [place] [phone] 07 Jan, 2012 [facility] [address] [id number] [address] [place] [address], [place] [phone] Jan, [facility] [address] [id number] [address] [place] [address], [place] [phone] 31 Dec, 2011 [facility] [address] [id number] [address] [place] [phone] 31 Dec, 2011 [facility] [address] [id number] [address] [place] [address], [place] [phone] 30 Dec, 2011 [facility] [address] [id number] [address] [place] [phone] 30 Dec, 2011 [facility] [address] [id number] [address] [place] [phone] 30 Dec, 2011 [facility] [address] [id number] [address] [place] [phone] 30 Dec, 2011 [facility] [address] [id number] [address] [place] [phone] 30 Dec, 2011 [facility] [address] [id number] [address] [place] [phone] 30 Dec, 2011 [facility] [address] [id number] [address] [place] [phone] Dec, [facility] [address] [id number] [address] [place] [phone] Dec, [facility] [address] [id number] [address] [place] [address], [place] [phone] Oct, [facility] [address] [id number] [address] [place] [address], [place] [phone] Oct, [facility] [address] [id number] [address] [place] [address], [place] [phone] Aug, [facility] [address] [id number] [address] [place] [address], [place] [phone] Aug, [facility] [address] [id number] [address] [place] [address], [place] [phone] July, [facility] [address] [id number] [address] [place] [address], [place] [phone] Jun, [facility] [address] [id number] [address] [place] [address], [place] [phone] Jun, [facility] [address] [id number] [address] [place] [address], [place] [phone] May, [facility] [address] [id number] [address] [place] [address], [place] [phone] Apr, [facility] [address] [id number] [address] [place] [address], [place] [phone] Apr, [facility] [address] [id number] [address] [place] [address], [place] [phone] Mar, [facility] [address] [id number] [address] [place] [address], [place] [phone] Mar, [facility] [address] [id number] [address] [place] [address], [place] [phone] Feb, [facility] [address] [id number] [address] [place] [address], [place] [phone] 15 Feb, 2011 [facility] [address] [id number] [address] [place] [address], [place] [phone] Feb, [facility] [address] [id number] [address] [place] [phone] 13 Feb, 2011 [facility] [address] [id number] [address] [place] [phone] Jan, [facility] [address] [id number] [address] [place] [phone] 17 Dec, 2010 [facility] [address] [id number] [address] [place] [phone] 08 Feb, 2010 [facility] [address] [id number] [address] [place] [phone] Feb, [facility] [address] [id number] [address] [place] [phone] Feb, [facility] [address] [id number] [address] [place] [phone] Feb, [facility] [address] [id number] [address] [place] [phone] 15 Dec, 2009 [facility] [address] [id number] [address] [place] [phone] Dec, [facility] [address] [id number] [address] [place] [phone] Oct, [facility] [address] [id number] [address] [place] [phone] Jun, [facility] [address] [id number] [address] [place] [phone] Feb, [facility] [address] [id number] [address] [place] [phone] Feb, [facility] [address] [id number] [address] [place] [phone] Feb, [facility] [address] [id number] [address] [place] [phone] Dec, IMMUNIZATIONS No Known Immunizations SOCIAL HISTORY Never Assessed REASON FOR VISIT PLAN OF CARE VITAL SIGNS MEDICATIONS Unknown Medications RESULTS No Results PROCEDURES Procedure Date Ordered Result Body Site URINE CULTURE/COLONY COUNT Feb 03, 2013 PROTHROMBIN TIME Feb 03, 2013 URINALYSIS, AUTO, W/O SCOPE Feb 03, 2013 INSTRUCTIONS MEDICATIONS ADMINISTERED No Known Medications MEDICAL (GENERAL) HISTORY Type Description Date Medical History obesity Medical History Hematologic disorder factor clotting pro [place] Medical History DVT's Medical History Torn Rotator Cuff, repaired 09/23/17 Surgical History Lap Band 10/2012 Surgical History section 1985, 1987 Surgical History cholecystectomy Surgical History Roslyn Filter 06/2009 Surgical History Left leg exploratory surgery r/t clot 19 Surgical History left shoulder surgery 09/14/17 Surgical History lap band removed 12/2017 Surgical History gastic sleeve 01/2018 Surgical History Back surgery 2019 Surgical History Partial Thyroidectomy - left side 2018 Hospitalization History Ruptured Ovarian Cyst with abd bleed ing 11/2009 Hospitalization History Broken Back 06/2018
--- OUTSIDE RECORDS SUMMARY | 2019-10-19 12:21 | XMS REPORT ---
Author Author Mary Jane Mcginnis Doctor Organization [facility] Address Unknown Phone Unavailable Care Team Providers Care Safe Expert Name Role Phone Migration, Doctor Unavailable Unavailable PROBLEMS Type Condition ICD9-CM Code ION28-VZ Code Onset Dates Condition S tatus SNOMED Code Problem Thyroid follicular adenoma D34 Act phylicia 283966866 Problem History of DVT (deep vein thrombosis) Z86.718 Active 616916953 Problem Factor V Leiden D68.51 Active 3070 76667 Problem correction (current) use of anticoagulants Z79.01 Active 304002519 Problem Hypertriglyceridemia E78.1 Active 677841293 Problem Presence of IVC filter Z95.828 Active 281813054 Problem 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 Active 830393288 Problem Peripheral edema R60.9 Active 271 068941 Problem Excessive daytime sleepiness G47.19 A ctive 058532209058 Problem Gastroesophageal reflux disease, esophagitis pre sence not specified K21.9 Active 050944863 Problem Chronic pain due to trauma G89.21 Act phylicia 994843915 Problem Pelvic pain R10.2 Active 94493386 Problem Subclinical hypothyroidism E03.9 Act phylicia 65627172 Problem Generalized anxiety disorder F41.1 A ctive 587184437 Problem Thyroid nodule E04.1 Active 52634 5005 Problem Morbid obesity E66.01 Active 92468 6002 Problem Moderate episode of recurrent major depressive disorder F33.1 Active 306470672 Problem Vitamin D deficiency E55.9 Active 24287565 ALLERGIES No Information ENCOUNTERS Encounter Location Date Diagnosis [facility] [address] [facility] [id number] [address] [place] [phone] July, [facility] [address] [facility] [id number] [address] [place] [phone] July, Subclinical hypothyroidism E 03.9 and Anemia D64.9 [facility] [address] [facility] [id number] [address] [place] [phone] July, Thyroid nodule E04.1 ; Hyper triglyceridemia E78.1 ; Excessive daytime sleepiness G47.19 and Vitamin D deficiency E55.9 [place] [address] [facility] [id number] [address] [place] [phone] July, Hypertriglyceridemia E78.1 ; Excessive daytime sleepiness G47.19 ; Vitamin D deficiency E55.9 ; Morbid obesity E66.01 ; Peripheral edema R60.9 ; Generalized anxiety disorder F41.1 and Chronic pain due to trauma G89.21 [place] [address] [facility] [id number] [address] [place] [address] Jun, [place] [address] [facility] [id number] [phone] 15 Jun, 2019 Back pain with history of sp inal surgery M54.9 [place] [address] [place] [id number] [place] [phone] 12 Apr, 2019 Back pain with history of sp inal surgery M54.9 [place] [address] [place] [id number] [address] [place] [id number] 11 Apr, 2019 [place] [address] [address] 10 Apr, 2019 Gastroenteritis K52.9 ; Back pain with history of spinal surgery M54.9 ; Dermatofibroma of lower leg, unspecified laterality D23.70 and Morbid obesity E66.01 [place] [address] [place] [id number] [address] [place] [phone] Mar, [place] [address] [place] [id number] [address] [place] [phone] Jan, [place] [address] [place] [id number] [place] [phone] Jan, [place] [address] [place] [id number] [address] [place] [id number] Dec, Encounter for weight managem ent Z76.89 [place] [address] [place] [id number] [address] [place] [id number] Dec, Encounter for weight managem ent Z76.89 and Screening mammogram, encounter for Z12.31 [facility] [address] [facility] [id number] [address] [place] [address] Nov, Encounter for weight managem ent Z76.89 [place] [address] [facility] [id number] [address] [place] [phone] Nov, Thyroid nodule E04.1 [place] [address] [facility] [id number] [address] [place] [phone] Nov, Thyroid nodule E04.1 [place] [address] [facility] [id number] [address] [place] [id number] Nov, Thyroid nodule E04.1 [place] [address] [facility] [id number] [address] [place] [address] Oct, Syncope, unspecified syncope type R55 and Encounter for weight management Z76.89 [place] [address] [facility] [id number] [address] [place] [address] Oct, Morbid obesity E66.01 [place] [address] [facility] [id number] [address] [place] [phone] Oct, Hypertriglyceridemia E78.1 [place] [address] [place] [id number] [address] [place] [address] Oct, [place] [address] [place] [id number] [address] [place] [address] Oct, Hypertriglyceridemia E78.1 [place] [address] [facility] [id number] [address] [place] [address] Sep, Hypertriglyceridemia E78.1 a nd Vitamin D deficiency E55.9 [place] [address] [facility] [id number] [address] [place] [address] Sep, [place] [address] [place] [id number] [address] [place] [address] Sep, Morbid obesity E66.01 ; Mode rate episode of recurrent major depressive disorder F33.1 ; Hypertriglyceridemia E78.1 and Vitamin D deficiency E55.9 [facility] [address] [facility] [id number] [address] [place] [phone] Aug, [facility] [address] [facility] [id number] [address] [place] [phone] July, [facility] [address] [facility] [id number] [address] [place] [id number] July, [facility] [address] [id number] [address] [place] [phone] Jun, [facility] [address] [facility] [id number] [place] [phone] Jun, [facility] [address] [place] [id number] [place] [address] Jun, Closed compression fracture of L3 lumbar vertebra with routine healing, subsequent encounter S32.030D and Drug-induced constipation K59.03 [facility] [address] [facility] [id number] [address] [place] [phone] Jun, [facility] [address] [place] [id number] [place] [phone] Jun, [facility] [address] [place] [id number] [address] [place] [phone] Apr, [facility] [address] [facility] [id number] [address] [place] [phone] Apr, Morbid obesity E66.01 [facility] [address] [place] [id number] [address] [place] [address] Apr, Morbid obesity E66.01 ; Hype rtriglyceridemia E78.1 ; Gastroesophageal reflux disease, esophagitis presence not specified K21.9 and Joint pain M25.50 [facility] [address] [place] [id number] [address] [place] [phone] Feb, [facility] [address] [place] [id number] [address] [place] [phone] 06 Feb, 2018 [facility] [address] [facility] [id number] [address] [place] [phone] Jan, Acute bacterial conjunctivit is H10.30 [facility] [address] [facility] [id number] [address] [place] [phone] 08 Dec, 2017 [facility] [address] [place] [id number] [place] [id number] 04 Dec, 2017 [facility] [address] [facility] [id number] [address] [place] [id number] 17 Nov, 2017 [facility] [address] [place] [id number] [place] [phone] 07 Nov, 2017 Obstructive sleep apnea G47. 33 ; Morbid obesity E66.01 and Gastroesophageal reflux disease, esophagitis presence not specified K21.9 [facility] [address] [place] [id number] [address] [place] [id number] 06 Nov, 2017 Encounter for examination of eyes and vision without abnormal findings Z01.00 [facility] [address] [place] [id number] [place] [phone] 31 Oct, 2017 Thyroid nodule E04.1 and Scr eening for breast cancer Z12.31 [facility] [address] [place] [id number] [address] [place] [id number] 23 Oct, 2017 History of DVT (deep vein th rombosis) Z86.718 ; Thyroid nodule E04.1 and Gastroesophageal reflux disease, esophagitis presence not specified K21.9 [facility] [address] [facility] [id number] [address] [place] [address] Oct, [facility] [address] [place] [id number] [place] [phone] Sep, [facility] [address] [facility] [id number] [address] [place] [phone] Aug, [facility] [address] [place] [id number] [place] [address] Aug, [place] [id number] [place] [address] Aug, Acute pain of left shoulder M25.512 and Thyroid nodule E04.1 [place] [address] [place] [id number] [address] [place] [phone] July, Superior glenoid labrum lesi on of left shoulder, subsequent encounter S43.432D [place] [address] [place] [id number] [address] [place] [id number] Jun, History of DVT (deep vein th rombosis) Z86.718 [place] [address] [place] [id number] [place] [address] Jun, History of DVT (deep vein th rombosis) Z86.718 [place] [address] [place] [id number] [address] [place] [address] Jun, Impingement syndrome, should er, left M75.42 [place] [address] [place] [id number] [address] [place] [id number] May, Subacromial bursitis of left shoulder joint M75.52 [place] [address] [place] [id number] [address] [place] [address] May, [place] [address] [place] [id number] [address] [place] [id number] May, Hypertriglyceridemia E78.1 ; 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 and Excessive daytime sleepiness G47.19 [place] [address] [place] [id number] [address] [place] [address] May, History of DVT (deep vein th rombosis) Z86.718 ; Generalized anxiety disorder F41.1 ; Hypertriglyceridemia E78.1 ; 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 ; Subacromial bursitis of left shoulder joint M75.52 and Excessive daytime sleepiness G47.19 [place] [address] [place] [id number] [address] [place] [id number] May, [facility] [address] [id number] [address] [place] [phone] May, correction (current) use of a nticoagulants Z79.01 [facility] [address] [id number] [address] [place] [id number] Apr, correction (current) use of a nticoagulants Z79.01 [facility] [address] [id number] [address] [place] [address] Apr, 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 [facility] [address] [id number] [address] [place] [id number] 20 Apr, 2017 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 [facility] [address] [id number] [address] [place] [phone] Apr, [facility] [address] [id number] [address] [place] [phone] Apr, correction (current) use of a nticoagulants Z79.01 [facility] [address] [id number] [address] [place] [phone] 13 Apr, 2017 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 [facility] [address] [id number] [address] [place] [address] Apr, 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 [facility] [address] [id number] [address] [place] [address] Apr, correction (current) use of a nticoagulants Z79.01 [facility] [address] [id number] [address] [place] [id number] 07 Apr, 2017 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 [facility] [address] [id number] [address] [place] [phone] Apr, correction (current) use of a nticoagulants Z79.01 [facility] [address] [id number] [address] [place] [id number] Mar, correction (current) use of a nticoagulants Z79.01 [facility] [address] [id number] [address] [place] [phone] Mar, [facility] [address] [id number] [address] [place] [phone] Mar, correction (current) use of a nticoagulants Z79.01 [facility] [address] [id number] [place] [id number] Jan, Dental examination Z01.20 [facility] [address] [id number] [place] [address] [id number] Jan, [facility] [address] [facility] [id number] [address] [place] [address] Jan, 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 [facility] [address] [facility] [id number] [address] [place] [address] Jan, History of DVT (deep vein th rombosis) Z86.718 [place] [address] [facility] [id number] [address] [place] [address] Jan, Generalized anxiety disorder F41.1 and Peripheral edema R60.9 [facility] [address] [id number] [address] [place] [address] Nov, History of DVT (deep vein th rombosis) Z86.718 [facility] [address] [facility] [id number] [address] [place] [address] Nov, 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 [facility] [address] [facility] [id number] [address] [place] [phone] Nov, Acute non-recurrent maxillar y sinusitis J01.00 [place] [address] [facility] [id number] [address] [place] [phone] Oct, correction (current) use of a nticoagulants Z79.01 [place] [address] [facility] [id number] [address] [place] [address] Oct, Personal history of venous t hrombosis and embolism Z86.718 [place] [address] [place] [id number] [address] [place] [address] Sep, [place] [address] [place] [id number] [place] [address] Sep, Personal history of venous t hrombosis and embolism Z86.718 [place] [address] [place] [id number] [place] [phone] Sep, correction (current) use of a nticoagulants Z79.01 [place] [address] [place] [id number] [address] [place] [address] Sep, 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 [place] [address] [place] [id number] [place] [phone] Sep, Generalized anxiety disorder F41.1 and History of DVT (deep vein thrombosis) Z86.718 [place] [address] [place] [id number] [address] [place] [address] Aug, History of DVT (deep vein th rombosis) Z86.718 ; Generalized anxiety disorder F41.1 ; 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 ; Pelvic pain R10.2 ; Hypertriglyceridemia E78.1 ; Excessive daytime sleepiness G47.19 ; Colon cancer screening Z12.11 ; Screening for breast cancer Z12.39 ; Peripheral edema R60.9 and Gastroesophageal reflux disease, esophagitis presence not specified K21.9 [place] [address] [place] [id number] [address] [place] [phone] Aug, [place] [address] [id number] [address] [place] [phone] July, [place] [address] [facility] [id number] [address] [place] [address] July, History of DVT (deep vein th rombosis) Z86.718 [place] [address] [facility] [id number] [address] [place] [id number] Jun, Generalized anxiety disorder F41.1 [place] [address] [id number] [address] [place] [id number] Jun, History of DVT (deep vein th rombosis) Z86.718 [place] [address] [id number] [address] [place] [address] Jun, History of DVT (deep vein th rombosis) Z86.718 [place] [address] [facility] [id number] [address] [place] [address] Jun, History of DVT (deep vein th rombosis) Z86.718 [place] [address] [id number] [address] [place] [address] Jun, History of DVT (deep vein th rombosis) Z86.718 [place] [address] [facility] [id number] [address] [place] [address] May, History of DVT (deep vein th rombosis) Z86.718 [place] [address] [id number] [address] [place] [address] May, correction (current) use of a nticoagulants Z79.01 [place] [address] [facility] [id number] [address] [place] [address] May, correction (current) use of a nticoagulants Z79.01 [place] [address] [facility] [id number] [address] [place] [address] May, History of DVT (deep vein th rombosis) Z86.718 [facility] [address] [id number] [address] [place] [phone] 27 Apr, 2016 Bacterial conjunctivitis of left eye H10.9 and H/O motion sickness Z87.898 [facility] [address] [id number] [address] [place] [id number] 24 Apr, 2016 History of DVT (deep vein th rombosis) Z86.718 [facility] [address] [id number] [address] [place] [address] Apr, History of DVT (deep vein th rombosis) Z86.718 [facility] [address] [id number] [address] [place] [id number] 15 Apr, 2016 History of DVT (deep vein th rombosis) Z86.718 [facility] [address] [id number] [address] [place] [id number] 14 Apr, 2016 correction (current) use of a nticoagulants Z79.01 [facility] [address] [id number] [address] [place] [id number] Mar, [facility] [address] [id number] [address] [place] [id number] Mar, 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 [facility] [address] [id number] [address] [place] [id number] Mar, Hypertriglyceridemia E78.1 a nd correction (current) use of anticoagulants Z79.01 [facility] [address] [id number] [address] [place] [phone] Feb, correction (current) use of a nticoagulants Z79.01 [facility] [address] [id number] [address] [place] [address] Feb, correction (current) use of a nticoagulants Z79.01 [facility] [address] [id number] [address] [place] [phone] Feb, correction (current) use of a nticoagulants Z79.01 [place] [address] [id number] [address] [place] [phone] Dec, [facility] [address] [id number] [address] [place] [phone] Nov, [place] [address] [facility] [id number] [address] [place] [address] Nov, History of DVT (deep vein th rombosis) Z86.718 ; Tremulousness R25.1 ; Generalized anxiety disorder F41.1 ; Peripheral edema R60.9 and Hypertriglyceridemia E78.1 [place] [address] [id number] [address] [place] [phone] Oct, History of DVT (deep vein th rombosis) Z86.718 [place] [address] [facility] [id number] [address] [place] [id number] Oct, [place] [address] [id number] [address] [place] [phone] Sep, History of DVT (deep vein th rombosis) Z86.718 [place] [address] [id number] [address] [place] [phone] Sep, correction (current) use of a nticoagulants Z79.01 [place] [address] [id number] [address] [place] [phone] July, [place] [address] [id number] [address] [place] [phone] July, 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 [place] [address] [facility] [id number] [address] [place] [phone] July, correction (current) use of a nticoagulants Z79.01 [place] [id number] [id number] [address] [place] [phone] Jun, correction (current) use of a nticoagulants Z79.01 [facility] [place] [address] [address] [place] [id number] [address] [place] [phone] Jun, Coccyx pain M53.3 ; Encounte r for therapeutic drug level monitoring Z51.81 and correction current use 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.01 [place] [address] [facility] [id number] [address] [place] [phone] May, Abnormal mammogram R92.8 [facility] [place] [address] [address] [place] [id number] [address] [place] [phone] May, [facility] [place] [address] [address] [place] [id number] [place] [phone] May, Acute vaginitis N76.0 and En counter for other screening for malignant neoplasm of breast Z12.39 [place] [address] [place] [id number] [address] [place] [phone] Apr, [place] [address] [place] [id number] [address] [place] [phone] Apr, [place] [address] [place] [id number] [address] [place] [phone] Apr, Peripheral edema R60.9 [place] [address] [place] [id number] [place] [phone] Apr, correction (current) use of a nticoagulants Z79.01 [place] [address] [facility] [id number] [address] [place] [phone] Apr, Peripheral edema R60.9 and L jose martin term (current) 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 Z79.01 [place] [address] [facility] [id number] [address] [place] [phone] Apr, correction (current) use of a nticoagulants Z79.01 [place] [address] [facility] [id number] [address] [place] [phone] Apr, [facility] [address] [id number] [address] [place] [address] Apr, 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 [facility] [address] [id number] [address] [place] [address] Apr, Peripheral edema R60.9 [facility] [address] [id number] [address] [place] [address] Mar, 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 [facility] [address] [id number] [address] [place] [address] Mar, correction (current) use of a nticoagulants Z79.01 and Hypertriglyceridemia E78.1 [facility] [facility] [address] [id number] [address] [place] [address] Mar, 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 [place] [facility] [address] [id number] [address] [place] [address] Mar, correction (current) use of a nticoagulants Z79.01 [facility] [address] [id number] [address] [place] [address] Mar, [facility] [address] [id number] [address] [place] [address] Mar, 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 ; Hypertriglyceridemia E78.1 ; Personal history of venous thrombosis and embolism Z86.718 and Lump R22.9 [facility] [facility] [address] [id number] [address] [place] [address] Mar, Personal history of venous t hrombosis and embolism Z86.718 [place] [address] [id number] [address] [place] [address] Mar, Personal history of venous t hrombosis and embolism Z86.718 [facility] [address] [id number] [address] [place] [address] Mar, [facility] [address] [id number] [address] [place] [address] Dec, Personal history of venous t hrombosis and embolism Z86.718 [facility] [address] [id number] [address] [place] [phone] Dec, Personal history of venous t hrombosis and embolism V12.51 [facility] [address] [id number] [address] [place] [address] Nov, Personal history of venous t hrombosis and embolism V12.51 [facility] [address] [id number] [address] [place] [address] Nov, Personal history of venous t hrombosis and embolism V12.51 [facility] [address] [id number] [address] [place] [id number] Nov, Personal history of venous t hrombosis and embolism V12.51 [facility] [address] [id number] [address] [place] [address] Nov, Personal history of venous t hrombosis and embolism V12.51 [facility] [address] [id number] [address] [place] [address] Nov, [facility] [address] [id number] [address] [place] [address] Oct, Dysuria 788.1 [facility] [address] [id number] [address] [place] [address] Oct, Personal history of venous t hrombosis and embolism V12.51 [facility] [address] [id number] [address] [place] [address] Oct, [facility] [address] [id number] [address] [place] [address] Oct, Personal history of venous t hrombosis and embolism V12.51 [facility] [address] [id number] [address] [place] [address] Sep, Personal history of venous t hrombosis and embolism V12.51 [facility] [address] [id number] [address] [place] [address] Sep, Personal history of venous t hrombosis and embolism V12.51 [facility] [address] [id number] [address] [place] [address] Aug, Personal history of venous t hrombosis and embolism V12.51 [facility] [address] [id number] [address] [place] [address] Aug, Personal history of venous t hrombosis and embolism V12.51 [facility] [address] [id number] [address] [place] [address] Aug, Personal history of venous t hrombosis and embolism V12.51 [facility] [address] [id number] [address] [place] [address] July, Generalized anxiety disorder 300.02 ; Abdominal pain, left lower quadrant 789.04 and Personal history of venous thrombosis and embolism V12.51 [facility] [address] [id number] [address] [place] [address] 14 Jun, 2014 [facility] [address] [id number] [address] [place] [phone] Jun, [facility] [address] [id number] [address] [place] [address] May, [facility] [address] [id number] [address] [place] [address] May, [facility] [address] [id number] [address] [place] [phone] May, [facility] [address] [id number] [address] [place] [address] May, [facility] [address] [id number] [address] [place] [address] May, [facility] [address] [id number] [address] [place] [address], [place] [address] May, [facility] [address] [id number] [address] [place] [address], [place] [address] May, [facility] [address] [id number] [address] [place] [address], [place] [address] May, [facility] [address] [id number] [address] [place] [address], [place] [address] Apr, [facility] [address] [id number] [address] [place] [address], [place] [address] Apr, [facility] [address] [id number] [address] [place] [address], [place] [address] Apr, [facility] [address] [id number] [address] [place] [address], [place] [address] Apr, [facility] [address] [id number] [address] [place] [address], [place] [address] Apr, [facility] [address] [id number] [address] [place] [address], [place] [address] Mar, [facility] [address] [id number] [address] [place] [address], [place] [address] Mar, [facility] [address] [id number] [address] [place] [address], [place] [address] Mar, [facility] [address] [id number] [address] [place] [address], [place] [address] Mar, [facility] [address] [id number] [address] [place] [address], [place] [address] Mar, [facility] [address] [id number] [address] [place] [address], [place] [address] Mar, [facility] [address] [id number] [address] [place] [address], [place] [address] Feb, [facility] [address] [id number] [address] [place] [address], [place] [address] Feb, [facility] [address] [id number] [address] [place] [address], [place] [address] Feb, [facility] [address] [id number] [address] [place] [address], [place] [address] Feb, [facility] [address] [id number] [address] [place] [address], [place] [address] Feb, [facility] [address] [id number] [address] [place] [address], [place] [address] Feb, [facility] [address] [id number] [address] [place] [address], [place] [address] Feb, [facility] [address] [id number] [address] [place] [address], [place] [address] Feb, [facility] [address] [id number] [address] [place] [address], [place] [address] Feb, [facility] [address] [id number] [address] [place] [address], [place] [address] Feb, [facility] [address] [id number] [address] [place] [address], [place] [address] Jan, [facility] [address] [id number] [address] [place] [address], [place] [address] Jan, [facility] [address] [id number] [address] [place] [address], [place] [address] Jan, [facility] [address] [id number] [address] [place] [address], [place] [address] Jan, [facility] [address] [id number] [address] [place] [address], [place] [address] Jan, [facility] [address] [id number] [address] [place] [address], [place] [address] Jan, [facility] [address] [id number] [address] [place] [address], [place] [address] Jan, [facility] [address] [id number] [address] [place] [address], [place] [address] Jan, [facility] [address] [id number] [address] [place] [address], [place] [address] Jan, [facility] [address] [id number] [address] [place] [address], [place] [address] Jan, [facility] [address] [id number] [address] [place] [address], [place] [address] Dec, [facility] [address] [id number] [address] [place] [address], [place] [address] Dec, [facility] [address] [id number] [address] [place] [address], [place] [address] Dec, [facility] [address] [id number] [address] [place] [address], [place] [address] Dec, [facility] [address] [id number] [address] [place] [address], [place] [address] Dec, [facility] [address] [id number] [address] [place] [address], [place] [address] Dec, [facility] [address] [id number] [address] [place] [address] Dec, [facility] [address] [id number] [address] [place] [address] Dec, [facility] [address] [id number] [address] [place] [address] Dec, [facility] [address] [id number] [address] [place] [address], [place] [address] Dec, [facility] [address] [id number] [address] [place] [address], [place] [address] Dec, [facility] [address] [id number] [address] [place] [address], [place] [address] Dec, [facility] [address] [id number] [address] [place] [address], [place] [address] Dec, [facility] [address] [id number] [address] [place] [address], [place] [address] Dec, [facility] [address] [id number] [address] [place] [address], [place] [address] Dec, [facility] [address] [id number] [address] [place] [address], [place] [address] 30 Nov, 2013 [facility] [address] [id number] [address] [place] [address], [place] [address] 30 Nov, 2013 [facility] [address] [id number] [address] [place] [address], [place] [address] 26 Nov, 2013 [facility] [address] [id number] [address] [place] [address], [place] [address] 26 Nov, 2013 [facility] [address] [id number] [address] [place] [address], [place] [address] 24 Nov, 2013 [facility] [address] [id number] [address] [place] [address], [place] [address] 24 Nov, 2013 [facility] [address] [id number] [address] [place] [address], [place] [address] 23 Nov, 2013 [facility] [address] [id number] [address] [place] [address], [place] [address] 23 Nov, 2013 [facility] [address] [id number] [address] [place] [address], [place] [address] 18 Nov, 2013 [facility] [address] [id number] [address] [place] [address], [place] [address] 18 Sep, 2013 [facility] [address] [id number] [address] [place] [address], [place] [address] 17 Nov, 2013 [facility] [address] [id number] [address] [place] [address], [place] [address] 17 Nov, 2013 [facility] [address] [id number] [address] [place] [address], [place] [address] 11 Nov, 2013 [facility] [address] [id number] [facility] [place] [address] 11 Nov, 2013 [facility] [address] [id number] [address] [place] [address], [place] [address] Nov, 2013 [facility] [address] [id number] [address] [place] [address], [place] [address] Nov, 2013 [facility] [address] [id number] [address] [place] [address], [place] [address] Nov, 2013 [facility] [address] [id number] [address] [place] [address], [place] [address] Nov, [facility] [address] [id number] [address] [place] [address], [place] [address] Sep, [facility] [address] [id number] [address] [place] [address], [place] [address] Sep, [facility] [address] [id number] [address] [place] [address], [place] [address] Sep, [facility] [address] [id number] [address] [place] [address], [place] [address] Sep, [facility] [address] [id number] [address] [place] [address], [place] [address] Sep, [facility] [address] [id number] [address] [place] [address], [place] [address] Sep, [facility] [address] [id number] [address] [place] [address], [place] [address] Aug, [facility] [address] [id number] [address] [place] [address], [place] [address] Aug, [facility] [address] [id number] [address] [place] [address], [place] [address] Aug, [facility] [address] [id number] [address] [place] [address], [place] [address] Aug, [facility] [address] [id number] [address] [place] [address], [place] [address] Aug, [facility] [address] [id number] [facility] [place] [address] Aug, [facility] [address] [id number] [address] [place] [address], [place] [address] Aug, [facility] [address] [id number] [address] [place] [address], [place] [address] Aug, [facility] [address] [id number] [address] [place] [address], [place] [address] Aug, [facility] [address] [id number] [address] [place] [address], [place] [address] Aug, [facility] [address] [id number] [address] [place] [address], [place] [address] Aug, [facility] [address] [id number] [address] [place] [address], [place] [address] July, [facility] [address] [id number] [address] [place] [address], [place] [address] July, [facility] [address] [id number] [address] [place] [address], [place] [address] Jun, [facility] [address] [id number] [address] [place] [address], [place] [address] Jun, [facility] [address] [id number] [address] [place] [address], [place] [address] Jun, [facility] [address] [id number] [address] [place] [address], [place] [address] Jun, [facility] [address] [id number] [address] [place] [address], [place] [address] Jun, [facility] [address] [id number] [address] [place] [address], [place] [address] Jun, [facility] [address] [id number] [address] [place] [address], [place] [address] 15 Jun, 2013 [facility] [address] [id number] [facility] [place] [address] 15 Jun, 2013 [facility] [address] [id number] [facility] [place] [address] 11 Jun, 2013 [facility] [address] [id number] [facility] [place] [address] 11 Jun, 2013 [facility] [address] [id number] [facility] [place] [address] 10 Jun, 2013 [facility] [address] [id number] [address] [place] [address], [place] [address] Jun, [facility] [address] [id number] [address] [place] [address], [place] [address] 25 May, 2013 [facility] [address] [id number] [address] [place] [address], [place] [address] May, [facility] [address] [id number] [address] [place] [address], [place] [address] May, [facility] [address] [id number] [address] [place] [address], [place] [address] May, [facility] [address] [id number] [address] [place] [address], [place] [address] May, [facility] [address] [id number] [address] [place] [address], [place] [address] May, [facility] [address] [id number] [address] [place] [address], [place] [address] May, [facility] [address] [id number] [address] [place] [address], [place] [address] 06 May, 2013 [facility] [address] [id number] [address] [place] [address], [place] [address] May, [facility] [address] [id number] [address] [place] [address], [place] [address] May, [facility] [address] [id number] [address] [place] [address], [place] [address] May, [facility] [address] [id number] [facility] [place] [address] May, [facility] [address] [id number] [address] [place] [address], [place] [address] Apr, [facility] [address] [id number] [address] [place] [address], [place] [address] Apr, [facility] [address] [id number] [address] [place] [address], [place] [address] Apr, [facility] [address] [id number] [address] [place] [address], [place] [address] Apr, [facility] [address] [id number] [address] [place] [address], [place] [address] Apr, [facility] [address] [id number] [address] [place] [address], [place] [address] Apr, [facility] [address] [id number] [address] [place] [address], [place] [address] Apr, [facility] [address] [id number] [address] [place] [address], [place] [address] Apr, [facility] [address] [id number] [address] [place] [address], [place] [address] Apr, [facility] [address] [id number] [address] [place] [address], [place] [address] Apr, [facility] [address] [id number] [address] [place] [address], [place] [address] Apr, [facility] [address] [id number] [address] [place] [address], [place] [address] Apr, [facility] [address] [id number] [address] [place] [address], [place] [address] Apr, [facility] [address] [id number] [address] [place] [address], [place] [address] Apr, [facility] [address] [id number] [address] [place] [address], [place] [address] Apr, 2013 [facility] [address] [id number] [address] [place] [address], [place] [address] Apr, 2013 [facility] [address] [id number] [address] [place] [address], [place] [address] Apr, [facility] [address] [id number] [address] [place] [address], [place] [address] Jan, [facility] [address] [id number] [address] [place] [address], [place] [address] Jan, [facility] [address] [id number] [address] [place] [address], [place] [address] Jan, [facility] [address] [id number] [address] [place] [address], [place] [address] Jan, [facility] [address] [id number] [address] [place] [address], [place] [address] Jan, [facility] [address] [id number] [address] [place] [address], [place] [address] Jan, [facility] [address] [id number] [address] [place] [address], [place] [address] Jan, [facility] [address] [id number] [address] [place] [id number] Dec, [facility] [address] [id number] [address] [place] [address] Dec, [facility] [address] [id number] [address] [place] [address], [place] [address] Dec, [facility] [address] [id number] [address] [place] [id number] Nov, [facility] [address] [id number] [address] [place] [id number] 10 Nov, 2012 [facility] [address] [id number] [address] [place] [id number] 05 Nov, 2012 [facility] [address] [id number] [address] [place] [address], [place] [address] Nov, [facility] [address] [id number] [address] [place] [address], [place] [address] Oct, [facility] [address] [id number] [address] [place] [address], [place] [address] Oct, [facility] [address] [id number] [address] [place] [address], [place] [address] Oct, [facility] [address] [id number] [address] [place] [address], [place] [address] Oct, [facility] [address] [id number] [address] [place] [address], [place] [address] Oct, [facility] [address] [id number] [address] [place] [address], [place] [address] Sep, [facility] [address] [id number] [address] [place] [address], [place] [address] Sep, [facility] [address] [id number] [address] [place] [address], [place] [address] Sep, [facility] [address] [id number] [address] [place] [address], [place] [address] Sep, [facility] [address] [id number] [address] [place] [address], [place] [address] Sep, [facility] [address] [id number] [address] [place] [address], [place] [address] Sep, [facility] [address] [id number] [address] [place] [address], [place] [address] Sep, [facility] [address] [id number] [address] [place] [address], [place] [address] Aug, [facility] [address] [id number] [address] [place] [address], [place] [address] Aug, [facility] [address] [id number] [address] [place] [address], [place] [address] July, [facility] [address] [id number] [address] [place] [address], [place] [address] Jun, [facility] [address] [id number] [address] [place] [address], [place] [address] Jun, [facility] [address] [id number] [address] [place] [address], [place] [address] Jun, [facility] [address] [id number] [address] [place] [address], [place] [address] Apr, [facility] [address] [id number] [address] [place] [address], [place] [address] Apr, [facility] [address] [id number] [address] [place] [address], [place] [address] Apr, [facility] [address] [id number] [address] [place] [address], [place] [address] Mar, [facility] [address] [id number] [address] [place] [address], [place] [address] Mar, [facility] [address] [id number] [address] [place] [address], [place] [address] Mar, [facility] [address] [id number] [address] [place] [address], [place] [address] Mar, [facility] [address] [id number] [address] [place] [address], [place] [address] Mar, [facility] [address] [id number] [address] [place] [address], [place] [address] 14 Feb, 2012 [facility] [address] [id number] [address] [place] [address], [place] [address] 14 Feb, 2012 [facility] [address] [id number] [address] [place] [address], [place] [address] 13 Jan, 2012 [facility] [address] [id number] [address] [place] [address], [place] [address] Jan, [facility] [address] [id number] [address] [place] [address], [place] [address] 13 Jan, 2012 [facility] [address] [id number] [address] [place] [phone] Jan, [facility] [address] [id number] [address] [place] [address], [place] [address] 07 Jan, 2012 [facility] [address] [id number] [address] [place] [id number] 07 Jan, 2012 [facility] [address] [id number] [address] [place] [address], [place] [address] Jan, [facility] [address] [id number] [address] [place] [phone] Dec, [facility] [address] [id number] [address] [place] [address], [place] [address] Dec, [facility] [address] [id number] [address] [place] [phone] 30 Dec, 2011 [facility] [address] [id number] [address] [place] [phone] 30 Dec, 2011 [facility] [address] [id number] [address] [place] [phone] 30 Dec, 2011 [facility] [address] [id number] [address] [place] [phone] 30 Dec, 2011 [facility] [address] [id number] [address] [place] [phone] 30 Dec, 2011 [facility] [address] [id number] [address] [place] [address], [place] [address] 30 Dec, 2011 [facility] [address] [id number] [address] [place] [phone] Dec, [facility] [address] [id number] [address] [place] [phone] Dec, [facility] [address] [id number] [address] [place] [address], [place] [address] Oct, [facility] [address] [id number] [address] [place] [address], [place] [address] Oct, [facility] [address] [id number] [address] [place] [address], [place] [address] Aug, [facility] [address] [id number] [address] [place] [address], [place] [address] Aug, [facility] [address] [id number] [address] [place] [address], [place] [address] July, [facility] [address] [id number] [address] [place] [address], [place] [address] Jun, [facility] [address] [id number] [address] [place] [address], [place] [address] Jun, [facility] [address] [id number] [address] [place] [address], [place] [address] May, [facility] [address] [id number] [address] [place] [address], [place] [address] Apr, [facility] [address] [id number] [address] [place] [address], [place] [address] Apr, [facility] [address] [id number] [address] [place] [address], [place] [address] Mar, [facility] [address] [id number] [address] [place] [address], [place] [address] Mar, [facility] [address] [id number] [address] [place] [address], [place] [address] Feb, [facility] [address] [id number] [address] [place] [address], [place] [address] 15 Feb, 2011 [facility] [address] [id number] [address] [place] [address], [place] [address] 13 Feb, 2011 [facility] [address] [id number] [address] [place] [address], [place] [address] Feb, [facility] [address] [id number] [address] [place] [phone] Jan, [facility] [address] [id number] [address] [place] [phone] Dec, [facility] [address] [id number] [address] [place] [phone] Feb, [facility] [address] [id number] [address] [place] [phone] Feb, [facility] [address] [id number] [address] [place] [phone] Feb, [facility] [address] [id number] [address] [place] [phone] Feb, [facility] [address] [id number] [address] [place] [phone] Dec, [facility] [address] [id number] [address] [place] [phone] Dec, [facility] [address] [id number] [address] [place] [phone] Oct, [facility] [address] [id number] [address] [place] [id number] Jun, [facility] [address] [id number] [address] [place] [phone] Feb, [facility] [address] [id number] [address] [place] [phone] Feb, [facility] [address] [id number] [address] [place] [id number] Feb, [facility] [address] [id number] [address] [place] [phone] Dec, IMMUNIZATIONS No Known Immunizations SOCIAL HISTORY Never Assessed REASON FOR VISIT PLAN OF CARE VITAL SIGNS MEDICATIONS Unknown Medications RESULTS No Results PROCEDURES Procedure Date Ordered Result Body Site PROTHROMBIN TIME Dec 02, 2012 INSTRUCTIONS MEDICATIONS ADMINISTERED No Known Medications MEDICAL (GENERAL) HISTORY Type Description Date Medical History obesity Medical History Hematologic disorder factor clotting pro blem Medical History DVT's Medical History Torn Rotator Cuff, repaired 09/23/17 Surgical History Lap Band 10/2012 Surgical History section 1985, 1987 Surgical History cholecystectomy Surgical History Colerain Filter 06/2009 Surgical History Left leg exploratory surgery r/t clot Surgical History left shoulder surgery 09/14/17 Surgical History lap band removed 12/2017 Surgical History gastic sleeve 01/2018 Surgical History Back surgery 2018 Surgical History Partial Thyroidectomy - left side 2018 Hospitalization History Ruptured Ovarian Cyst with abd bleed ing 11/2009 Hospitalization History Broken Back 06/2018
--- OUTSIDE RECORDS SUMMARY | 2019-10-19 12:21 | XMS REPORT ---
Author Author Mary Jane Mcginnis Doctor Organization [facility] Address Unknown Phone Unavailable Care Team Providers Care Zig Zag Stitcher Name Role Phone Migration, Doctor Unavailable Unavailable PROBLEMS Type Condition ICD9-CM Code PRD27-XO Code Onset Dates Condition S tatus SNOMED Code Problem Thyroid follicular adenoma D34 Act phylicia 289893003 Problem History of DVT (deep vein thrombosis) Z86.718 Active 265441406 Problem Factor V Leiden D68.51 Active 3070 06636 Problem MCC (current) use of anticoagulants Z79.01 Active 698763469 Problem Hypertriglyceridemia E78.1 Active 674191073 Problem Presence of IVC filter Z95.828 Active 918598364 Problem 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 Active 889055567 Problem Peripheral edema R60.9 Active 271 288177 Problem Excessive daytime sleepiness G47.19 A ctive 488521598276 Problem Gastroesophageal reflux disease, esophagitis pre sence not specified K21.9 Active 372939337 Problem Chronic pain due to trauma G89.21 Act phylicia 743073020 Problem Pelvic pain R10.2 Active 43792784 Problem Subclinical hypothyroidism E03.9 Act phylicia 30637830 Problem Generalized anxiety disorder F41.1 A ctive 098413932 Problem Thyroid nodule E04.1 Active 42352 5005 Problem Morbid obesity E66.01 Active 92708 6002 Problem Moderate episode of recurrent major depressive disorder F33.1 Active 104306292 Problem Vitamin D deficiency E55.9 Active 15022562 ALLERGIES No Information ENCOUNTERS Encounter Location Date Diagnosis [facility] [address] [facility] [id number] [address] [place] [address] 11 Aug, 2019 Subclinical hypothyroidism E 03.9 [facility] [address] [facility] [id number] [address] [place] [address] 05 Aug, 2019 Subclinical hypothyroidism E 03.9 and Anemia D64.9 [facility] [address] [facility] [id number] [address] [place] [address] Aug, [place] [address] [place] [address] Aug, [place] [address] [facility] [id number] [address] [place] [address] July, [place] [address] [place] [id number] [address] [place] [address] July, Subclinical hypothyroidism E 03.9 and Anemia D64.9 [place] [address] [facility] [id number] [address] [place] [address] July, Thyroid nodule E04.1 ; Hyper triglyceridemia E78.1 ; Excessive daytime sleepiness G47.19 and Vitamin D deficiency E55.9 [place] [address] [place] [id number] [address] [place] [address] July, Hypertriglyceridemia E78.1 ; Excessive daytime sleepiness G47.19 ; Vitamin D deficiency E55.9 ; Morbid obesity E66.01 ; Peripheral edema R60.9 ; Generalized anxiety disorder F41.1 and Chronic pain due to trauma G89.21 [place] [address] [place] [address] Jun, [place] [address] [place] [id number] [address] [place] [address] 15 Jun, 2019 Back pain with history of sp inal surgery M54.9 [place] [address] [place] [address] 12 Apr, 2019 Back pain with history of sp inal surgery M54.9 [place] [address] [place] [id number] [address] [place] [address] 11 Apr, 2019 [place] [address] [place] [id number] [address] [place] [address] 10 Apr, 2019 Gastroenteritis K52.9 ; Back pain with history of spinal surgery M54.9 ; Dermatofibroma of lower leg, unspecified laterality D23.70 and Morbid obesity E66.01 [place] [address] [place] [id number] [place] [address] Mar, [facility] [address] [id number] [address] [place] [address] Jan, [facility] [address] [facility] [id number] [address] [place] [address] Jan, [facility] [address] [facility] [id number] [address] [place] [address] Dec, Encounter for weight managem ent Z76.89 [facility] [address] [id number] [address] [place] [address] Dec, Encounter for weight managem ent Z76.89 and Screening mammogram, encounter for Z12.31 [facility] [address] [facility] [id number] [address] [place] [address] Nov, Encounter for weight managem ent Z76.89 [facility] [address] [facility] [id number] [address] [place] [address] Nov, Thyroid nodule E04.1 [facility] [address] [facility] [id number] [address] [place] [address] Nov, Thyroid nodule E04.1 [facility] [address] [facility] [id number] [address] [place] [address] Nov, Thyroid nodule E04.1 [facility] [address] [facility] [id number] [address] [place] [address] Oct, Syncope, unspecified syncope type R55 and Encounter for weight management Z76.89 [facility] [address] [facility] [id number] [address] [place] [address] Oct, Morbid obesity E66.01 [facility] [address] [facility] [id number] [address] [place] [address] Oct, Hypertriglyceridemia E78.1 [facility] [address] [facility] [id number] [address] [place] [address] Oct, [facility] [address] [place] [id number] [address] [place] [address] Oct, Hypertriglyceridemia E78.1 [facility] [address] [facility] [id number] [address] [place] [address] Sep, Hypertriglyceridemia E78.1 a nd Vitamin D deficiency E55.9 [facility] [address] [id number] [address] [place] [address] Sep, [facility] [address] [facility] [id number] [address] [place] [address] Sep, Morbid obesity E66.01 ; Mode rate episode of recurrent major depressive disorder F33.1 ; Hypertriglyceridemia E78.1 and Vitamin D deficiency E55.9 [facility] [address] [id number] [address] [place] [address] Aug, [facility] [address] [facility] [id number] [address] [place] [address] July, [facility] [address] [id number] [address] [place] [address] July, [facility] [address] [id number] [address] [place] [address] Jun, [facility] [address] [facility] [id number] [address] [place] [address] Jun, [facility] [address] [facility] [id number] [address] [place] [address] Jun, Closed compression fracture of L3 lumbar vertebra with routine healing, subsequent encounter S32.030D and Drug-induced constipation K59.03 [facility] [address] [id number] [address] [place] [address] Jun, [facility] [address] [facility] [id number] [address] [place] [address] Jun, [facility] [address] [id number] [address] [place] [address] Apr, [facility] [address] [address] 18 Apr, 2018 Morbid obesity E66.01 [facility] [address] [address] 12 Apr, 2018 Morbid obesity E66.01 ; Hype rtriglyceridemia E78.1 ; Gastroesophageal reflux disease, esophagitis presence not specified K21.9 and Joint pain M25.50 [facility] [address] [address] Feb, [facility] [address] [address] Feb, [facility] [address] [address] Jan, Acute bacterial conjunctivit is H10.30 [place] [address] [address] 08 Dec, 2017 [facility] [address] [address] 04 Dec, 2017 [place] [address] [address] 17 Nov, 2017 [place] [address] [address] 07 Nov, 2017 Obstructive sleep apnea G47. 33 ; Morbid obesity E66.01 and Gastroesophageal reflux disease, esophagitis presence not specified K21.9 [facility] [address] [place] [id number] [address] [place] [id number] 06 Nov, 2017 Encounter for examination of eyes and vision without abnormal findings Z01.00 [facility] [address] [address] Oct, Thyroid nodule E04.1 and Scr eening for breast cancer Z12.31 [facility] [address] [place] [id number] [address] [place] [address] Oct, History of DVT (deep vein th rombosis) Z86.718 ; Thyroid nodule E04.1 and Gastroesophageal reflux disease, esophagitis presence not specified K21.9 [facility] [address] [id number] [address] [place] [address] Oct, [facility] [address] [id number] [address] [place] [address] Sep, [facility] [address] [id number] [address] [place] [address] Aug, [place] [address] [id number] [address] [place] [address] Aug, [place] [address] [facility] [id number] [address] [place] [address] Aug, Acute pain of left shoulder M25.512 and Thyroid nodule E04.1 [place] [address] [facility] [id number] [address] [place] [address] July, Superior glenoid labrum lesi on of left shoulder, subsequent encounter S43.432D [place] [address] [facility] [id number] [address] [place] [address] Jun, History of DVT (deep vein th rombosis) Z86.718 [place] [address] [facility] [id number] [address] [place] [address] Jun, History of DVT (deep vein th rombosis) Z86.718 [place] [address] [id number] [address] [place] [address] Jun, Impingement syndrome, should er, left M75.42 [place] [address] [id number] [address] [place] [address] May, Subacromial bursitis of left shoulder joint M75.52 [place] [address] [facility] [id number] [address] [place] [address] May, [place] [address] [facility] [id number] [address] [place] [address] May, Hypertriglyceridemia E78.1 ; MCC (current) use of anticoagulants Z79.01 and Excessive daytime sleepiness G47.19 [facility] [address] [id number] [address] [place] [address] May, History of DVT (deep vein th rombosis) Z86.718 ; Generalized anxiety disorder F41.1 ; Hypertriglyceridemia E78.1 ; 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 ; Subacromial bursitis of left shoulder joint M75.52 and Excessive daytime sleepiness G47.19 [facility] [address] [id number] [address] [place] [address] May, [facility] [address] [id number] [address] [place] [address] May, MCC (current) use of a nticoagulants Z79.01 [facility] [address] [id number] [address] [place] [address] Apr, MCC (current) use of a nticoagulants Z79.01 [facility] [address] [id number] [address] [place] [address] Apr, MCC (current) use of a nticoagulants Z79.01 [facility] [address] [id number] [address] [place] [address] Apr, MCC (current) use of a nticoagulants Z79.01 [facility] [address] [id number] [address] [place] [address] Apr, [facility] [address] [id number] [address] [place] [address] Apr, MCC (current) use of a nticoagulants Z79.01 [facility] [address] [id number] [address] [place] [address] 13 Apr, 2017 terminal system operator (current) use of a nticoagulants Z79.01 [facility] [address] [id number] [address] [place] [address] Apr, MCC (current) use of a nticoagulants Z79.01 [facility] [address] [id number] [address] [place] [address] Apr, MCC (current) use of a nticoagulants Z79.01 [facility] [address] [id number] [address] [place] [address] Apr, terminal system operator (current) use of a nticoagulants Z79.01 [facility] [address] [id number] [address] [place] [address] Apr, MCC (current) use of a nticoagulants Z79.01 [facility] [address] [id number] [address] [place] [address] Mar, terminal system operator (current) use of a nticoagulants Z79.01 [facility] [address] [id number] [address] [place] [address] Mar, [facility] [address] [id number] [address] [place] [address] Mar, terminal system operator (current) use of a nticoagulants Z79.01 [facility] [address] [id number] [address] [place] [id number] Jan, Dental examination Z01.20 [facility] [address] [id number] [address] [place] [id number] Jan, [facility] [address] [id number] [address] [place] [address] Jan, terminal system operator (current) use of a nticoagulants Z79.01 [facility] [address] [id number] [address] [place] [address] Jan, History of DVT (deep vein th rombosis) Z86.718 [facility] [address] [id number] [address] [place] [address] Jan, Generalized anxiety disorder F41.1 and Peripheral edema R60.9 [facility] [address] [id number] [address] [place] [address] Nov, History of DVT (deep vein th rombosis) Z86.718 [facility] [address] [id number] [address] [place] [address] Nov, M[facility] (current) use of a nticoagulants Z79.01 [facility] [address] [id number] [address] [place] [address] Nov, Acute non-recurrent maxillar y sinusitis J01.00 [facility] [address] [id number] [address] [place] [address] Oct, MCC (current) use of a nticoagulants Z79.01 [facility] [address] [id number] [address] [place] [address] Oct, Personal history of venous t hrombosis and embolism Z86.718 [facility] [address] [id number] [address] [place] [address] Sep, [facility] [address] [id number] [address] [place] [address] Sep, Personal history of venous t hrombosis and embolism Z86.718 [facility] [address] [id number] [address] [place] [address] Sep, terminal system operator (current) use of a nticoagulants Z79.01 [facility] [address] [id number] [address] [place] [address] Sep, MCC (current) use of a nticoagulants Z79.01 [facility] [address] [id number] [address] [place] [address] Sep, Generalized anxiety disorder F41.1 and History of DVT (deep vein thrombosis) Z86.718 [facility] [address] [address] Aug, History of DVT (deep vein th rombosis) Z86.718 ; Generalized anxiety disorder F41.1 ; 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 ; Pelvic pain R10.2 ; Hypertriglyceridemia E78.1 ; Excessive daytime sleepiness G47.19 ; Colon cancer screening Z12.11 ; Screening for breast cancer Z12.39 ; Peripheral edema R60.9 and Gastroesophageal reflux disease, esophagitis presence not specified K21.9 [place] [address] [address] Aug, [place] [address] [address] July, [place] [address] [address] July, History of DVT (deep vein th rombosis) Z86.718 [place] [address] [address] Jun, Generalized anxiety disorder F41.1 [place] [address] [address] Jun, History of DVT (deep vein th rombosis) Z86.718 [place] [address] [address] Jun, History of DVT (deep vein th rombosis) Z86.718 [place] [address] [address] Jun, History of DVT (deep vein th rombosis) Z86.718 [place] [address] [address] Jun, History of DVT (deep vein th rombosis) Z86.718 [place] [address] [address] May, History of DVT (deep vein th rombosis) Z86.718 [facility] [address] [id number] [address] [place] [address] May, terminal system operator (current) use of a nticoagulants Z79.01 [facility] [address] [id number] [address] [place] [address] May, terminal system operator (current) use of a nticoagulants Z79.01 [facility] [address] [id number] [address] [place] [address] May, History of DVT (deep vein th rombosis) Z86.718 [facility] [address] [id number] [address] [place] [address] 27 Apr, 2016 Bacterial conjunctivitis of left eye H10.9 and H/O motion sickness Z87.898 [facility] [address] [id number] [address] [place] [address] 24 Apr, 2016 History of DVT (deep vein th rombosis) Z86.718 [facility] [address] [id number] [address] [place] [address] 23 Apr, 2016 History of DVT (deep vein th rombosis) Z86.718 [facility] [address] [id number] [address] [place] [address] 15 Apr, 2016 History of DVT (deep vein th rombosis) Z86.718 [facility] [address] [id number] [address] [place] [address] 14 Apr, 2016 M[facility] (current) use of a nticoagulants Z79.01 [facility] [address] [id number] [address] [place] [address] Mar, [facility] [address] [facility] [id number] [address] [place] [address] Mar, terminal system operator (current) use of a nticoagulants Z79.01 [facility] [address] [id number] [address] [place] [address] Mar, Hypertriglyceridemia E78.1 a nd 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 [facility] [address] [id number] [address] [place] [address] Feb, M[facility] (current) use of a nticoagulants Z79.01 [facility] [address] [id number] [address] [place] [address] Feb, terminal system operator (current) use of a nticoagulants Z79.01 [facility] [address] [id number] [address] [place] [address] Feb, terminal system operator (current) use of a nticoagulants Z79.01 [place] [address] [id number] [address] [place] [address] Dec, [place] [address] [id number] [address] [place] [address] Nov, [facility] [address] [id number] [address] [place] [address] Nov, History of DVT (deep vein th rombosis) Z86.718 ; Tremulousness R25.1 ; Generalized anxiety disorder F41.1 ; Peripheral edema R60.9 and Hypertriglyceridemia E78.1 [place] [address] [id number] [address] [place] [address] Oct, History of DVT (deep vein th rombosis) Z86.718 [facility] [address] [id number] [address] [place] [address] Oct, [facility] [address] [id number] [address] [place] [address] Sep, History of DVT (deep vein th rombosis) Z86.718 [facility] [address] [id number] [address] [place] [address] Sep, [facility] (current) use of a nticoagulants Z79.01 [facility] [address] [facility] [id number] [address] [place] [address] July, [facility] [address] [facility] [id number] [address] [place] [address] July, terminal system operator (current) use of a nticoagulants Z79.01 [facility] [address] [facility] [id number] [address] [place] [address] July, terminal system operator (current) use of a nticoagulants Z79.01 [facility] [address] [facility] [id number] [address] [place] [address] Jun, terminal system operator (current) use of a nticoagulants Z79.01 [facility] [address] [facility] [id number] [address] [place] [address] Jun, Coccyx pain M53.3 ; Encounte r for therapeutic drug level monitoring Z51.81 and MCC current use 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.01 [place] [address] [facility] [id number] [address] [place] [address] May, Abnormal mammogram R92.8 [facility] [address] [facility] [id number] [address] [place] [address] May, [facility] [address] [facility] [id number] [address] [place] [phone] May, Acute vaginitis N76.0 and En counter for other screening for malignant neoplasm of breast Z12.39 [place] [id number] [facility] [id number] [address] [place] [phone] Apr, [facility] [address] [facility] [id number] [address] [place] [phone] Apr, [place] [address] [facility] [id number] [address] [place] [phone] Apr, Peripheral edema R60.9 [place] [address] [facility] [id number] [address] [place] [phone] Apr, [facility] (current) use of a nticoagulants Z79.01 [facility] [address] [id number] [address] [place] [phone] 18 Apr, 2015 Peripheral edema R60.9 and L jose martin term (current) 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 Z79.01 [facility] [address] [id number] [address] [place] [phone] Apr, terminal system operator (current) use of a nticoagulants Z79.01 [facility] [address] [id number] [address] [place] [phone] Apr, [facility] [address] [id number] [address] [place] [phone] Apr, [facility] (current) use of a nticoagulants Z79.01 [facility] [address] [id number] [address] [place] [phone] Apr, Peripheral edema R60.9 [facility] [address] [id number] [address] [place] [phone] Mar, [facility] (current) use of a nticoagulants Z79.01 [facility] [address] [id number] [address] [place] [phone] Mar, terminal system operator (current) use of a nticoagulants Z79.01 and Hypertriglyceridemia E78.1 [facility] [address] [id number] [address] [place] [phone] Mar, terminal system operator (current) use of a nticoagulants Z79.01 [facility] [address] [id number] [address] [place] [address] Mar, MCC (current) use of a nticoagulants Z79.01 [facility] [address] [id number] [address] [place] [address] Mar, [facility] [address] [id number] [address] [place] [address] Mar, terminal system operator (current) use of a nticoagulants Z79.01 ; Hypertriglyceridemia E78.1 ; Personal history of venous thrombosis and embolism Z86.718 and Lump R22.9 [facility] [address] [id number] [address] [place] [address] Mar, Personal history of venous t hrombosis and embolism Z86.718 [facility] [address] [id number] [address] [place] [address] Mar, Personal history of venous t hrombosis and embolism Z86.718 [facility] [address] [id number] [address] [place] [address] Mar, [facility] [address] [id number] [address] [place] [address] Dec, Personal history of venous t hrombosis and embolism Z86.718 [facility] [address] [id number] [address] [place] [address] Dec, Personal history of venous t hrombosis and embolism V12.51 [facility] [address] [id number] [address] [place] [address] Nov, Personal history of venous t hrombosis and embolism V12.51 [facility] [address] [id number] [address] [place] [address] Nov, Personal history of venous t hrombosis and embolism V12.51 [facility] [address] [id number] [address] [place] [address] 17 Nov, 2014 Personal history of venous t hrombosis and embolism V12.51 [facility] [address] [id number] [address] [place] [address] Nov, Personal history of venous t hrombosis and embolism V12.51 [facility] [address] [id number] [address] [place] [address] 04 Nov, 2014 [facility] [address] [id number] [address] [place] [address] Oct, Dysuria 788.1 [facility] [address] [id number] [address] [place] [address] Oct, Personal history of venous t hrombosis and embolism V12.51 [facility] [address] [id number] [address] [place] [address] Oct, [facility] [address] [id number] [address] [place] [address] Oct, Personal history of venous t hrombosis and embolism V12.51 [facility] [address] [id number] [address] [place] [address] Sep, Personal history of venous t hrombosis and embolism V12.51 [facility] [address] [id number] [address] [place] [address] Sep, Personal history of venous t hrombosis and embolism V12.51 [facility] [address] [id number] [address] [place] [address] Aug, Personal history of venous t hrombosis and embolism V12.51 [facility] [address] [id number] [address] [place] [address] Aug, Personal history of venous t hrombosis and embolism V12.51 [facility] [address] [id number] [address] [place] [address] Aug, Personal history of venous t hrombosis and embolism V12.51 [facility] [address] [id number] [address] [place] [address] July, Generalized anxiety disorder 300.02 ; Abdominal pain, left lower quadrant 789.04 and Personal history of venous thrombosis and embolism V12.51 [facility] [address] [id number] [address] [place] [address] Jun, [facility] [address] [id number] [address] [place] [address] Jun, [facility] [address] [id number] [address] [place] [address], [place] [address] May, [facility] [address] [id number] [address] [place] [address], [place] [address] May, [facility] [address] [id number] [address] [place] [address], [place] [address] May, [facility] [address] [id number] [address] [place] [address], [place] [address] May, [facility] [address] [id number] [address] [place] [address], [place] [address] May, [facility] [address] [id number] [address] [place] [address], [place] [address] May, [facility] [address] [id number] [address] [place] [address], [place] [address] May, [facility] [address] [id number] [address] [place] [address], [place] [address] May, [facility] [address] [id number] [address] [place] [address], [place] [address] Apr, [facility] [address] [id number] [address] [place] [address], [place] [address] Apr, [facility] [address] [id number] [address] [place] [address], [place] [address] Apr, [facility] [address] [id number] [address] [place] [address], [place] [address] Apr, [facility] [address] [id number] [address] [place] [address], [place] [address] Apr, [facility] [address] [id number] [address] [place] [address], [place] [address] Mar, [facility] [address] [id number] [address] [place] [address], [place] [address] Mar, [facility] [address] [id number] [address] [place] [address], [place] [address] Mar, [facility] [address] [id number] [address] [place] [address], [place] [address] Mar, [facility] [address] [id number] [address] [place] [address], [place] [address] Mar, [facility] [address] [id number] [address] [place] [address], [place] [address] Mar, [facility] [address] [id number] [address] [place] [address], [place] [address] Feb, [facility] [address] [id number] [address] [place] [address], [place] [address] Feb, [facility] [address] [id number] [address] [place] [address], [place] [address] Feb, [facility] [address] [id number] [address] [place] [address], [place] [address] Feb, [facility] [address] [id number] [address] [place] [address], [place] [address] Feb, [facility] [address] [id number] [address] [place] [address], [place] [address] Feb, [facility] [address] [id number] [address] [place] [address], [place] [address] Feb, [facility] [address] [id number] [address] [place] [address], [place] [address] Feb, [facility] [address] [id number] [address] [place] [address], [place] [address] Feb, [facility] [address] [id number] [address] [place] [address], [place] [address] Feb, [facility] [address] [id number] [address] [place] [address], [place] [address] Jan, [facility] [address] [id number] [address] [place] [address], [place] [address] Jan, [facility] [address] [id number] [address] [place] [address], [place] [address] Jan, [facility] [address] [id number] [address] [place] [address], [place] [address] Jan, [facility] [address] [id number] [address] [place] [address], [place] [address] Jan, [facility] [address] [id number] [address] [place] [address], [place] [address] Jan, [facility] [address] [id number] [address] [place] [address], [place] [address] Jan, [facility] [address] [id number] [address] [place] [address], [place] [address] Jan, [facility] [address] [id number] [address] [place] [address], [place] [address] Jan, [facility] [address] [id number] [address] [place] [address], [place] [address] Jan, [facility] [address] [id number] [address] [place] [address], [place] [address] Dec, [facility] [address] [id number] [address] [place] [address], [place] [address] Dec, [facility] [address] [id number] [address] [place] [address], [place] [address] Dec, [facility] [address] [id number] [address] [place] [address], [place] [address] Dec, [facility] [address] [id number] [address] [place] [address], [place] [address] Dec, [facility] [address] [id number] [address] [place] [address], [place] [address] Dec, [facility] [address] [id number] [address] [place] [address], [place] [address] Dec, [facility] [address] [id number] [address] [place] [address], [place] [address] Dec, [facility] [address] [id number] [address] [place] [address], [place] [address] Dec, [facility] [address] [id number] [address] [place] [address], [place] [address] Dec, [facility] [address] [id number] [address] [place] [address], [place] [address] Dec, [facility] [address] [id number] [address] [place] [address], [place] [address] Dec, [facility] [address] [id number] [address] [place] [address], [place] [address] Dec, [facility] [address] [id number] [address] [place] [address], [place] [address] Dec, [facility] [address] [id number] [address] [place] [address], [place] [address] Dec, [facility] [address] [id number] [address] [place] [address], [place] [address] 30 Nov, 2013 [facility] [address] [id number] [address] [place] [address], [place] [address] 30 Nov, 2013 [facility] [address] [id number] [address] [place] [address], [place] [address] 26 Nov, 2013 [facility] [address] [id number] [address] [place] [address], [place] [address] 26 Sep, 2013 [facility] [address] [id number] [address] [place] [address], [place] [address] 24 Sep, 2013 [facility] [address] [id number] [address] [place] [address], [place] [address] 24 Nov, 2013 [facility] [address] [id number] [address] [place] [address], [place] [address] 23 Nov, 2013 [facility] [address] [id number] [address] [place] [address], [place] [address] 23 Nov, 2013 [facility] [address] [id number] [facility] [place] [address] 18 Sep, 2013 [facility] [address] [id number] [address] [place] [address], [place] [address] 18 Sep, 2013 [facility] [address] [id number] [facility] [place] [address] 17 Nov, 2013 [facility] [address] [id number] [address] [place] [address], [place] [address] 17 Nov, 2013 [facility] [address] [id number] [address] [place] [address], [place] [address] 11 Nov, 2013 [facility] [address] [id number] [address] [place] [address], [place] [address] 11 Nov, 2013 [facility] [address] [id number] [address] [place] [address], [place] [address] 10 Nov, 2013 [facility] [address] [id number] [address] [place] [address], [place] [address] 10 Nov, 2013 [facility] [address] [id number] [address] [place] [address], [place] [address] 08 Nov, 2013 [facility] [address] [id number] [address] [place] [address], [place] [address] 08 Nov, 2013 [facility] [address] [id number] [address] [place] [address], [place] [address] 22 Sep, 2013 [facility] [address] [id number] [address] [place] [address], [place] [address] Sep, 2013 [facility] [address] [id number] [address] [place] [address], [place] [address] Sep, 2013 [facility] [address] [id number] [address] [place] [address], [place] [address] Sep, 2013 [facility] [address] [id number] [address] [place] [address], [place] [address] Sep, 2013 [facility] [address] [id number] [address] [place] [address], [place] [address] 07 Sep, 2013 [facility] [address] [id number] [facility] [place] [address] Aug, [facility] [address] [id number] [facility] [place] [address] Aug, [facility] [address] [id number] [facility] [place] [address] Aug, [facility] [address] [id number] [address] [place] [address], [place] [address] Aug, [facility] [address] [id number] [address] [place] [address], [place] [address] Aug, [facility] [address] [id number] [address] [place] [address], [place] [address] Aug, [facility] [address] [id number] [address] [place] [address], [place] [address] Aug, [facility] [address] [id number] [address] [place] [address], [place] [address] Aug, [facility] [address] [id number] [address] [place] [address], [place] [address] Aug, [facility] [address] [id number] [address] [place] [address], [place] [address] Aug, [facility] [address] [id number] [address] [place] [address], [place] [address] Aug, [facility] [address] [id number] [address] [place] [address], [place] [address] July, [facility] [address] [id number] [address] [place] [address], [place] [address] July, [facility] [address] [id number] [address] [place] [address], [place] [address] Jun, [facility] [address] [id number] [address] [place] [address], [place] [address] Jun, [facility] [address] [id number] [address] [place] [address], [place] [address] 18 Jun, 2013 [facility] [address] [id number] [address] [place] [address], [place] [address] 18 Jun, 2013 [facility] [address] [id number] [address] [place] [address], [place] [address] 18 Jun, 2013 [facility] [address] [id number] [address] [place] [address], [place] [address] Jun, [facility] [address] [id number] [address] [place] [address], [place] [address] 15 Jun, 2013 [facility] [address] [id number] [address] [place] [address], [place] [address] Jun, [facility] [address] [id number] [address] [place] [address], [place] [address] Jun, [facility] [address] [id number] [address] [place] [address], [place] [address] Jun, [facility] [address] [id number] [address] [place] [address], [place] [address] Jun, [facility] [address] [id number] [address] [place] [address], [place] [address] Jun, [facility] [address] [id number] [address] [place] [address], [place] [address] May, [facility] [address] [id number] [address] [place] [address], [place] [address] May, [facility] [address] [id number] [address] [place] [address], [place] [address] May, [facility] [address] [id number] [address] [place] [address], [place] [address] May, [facility] [address] [id number] [address] [place] [address], [place] [address] May, [facility] [address] [id number] [address] [place] [address], [place] [address] May, [facility] [address] [id number] [facility] [place] [address] May, [facility] [address] [id number] [address] [place] [address], [place] [address] May, [facility] [address] [id number] [address] [place] [address], [place] [address] May, [facility] [address] [id number] [address] [place] [address], [place] [address] May, [facility] [address] [id number] [address] [place] [address], [place] [address] May, [facility] [address] [id number] [address] [place] [address], [place] [address] May, [facility] [address] [id number] [address] [place] [address], [place] [address] Apr, [facility] [address] [id number] [address] [place] [address], [place] [address] Apr, [facility] [address] [id number] [address] [place] [address], [place] [address] Apr, [facility] [address] [id number] [address] [place] [address], [place] [address] Apr, [facility] [address] [id number] [address] [place] [address], [place] [address] Apr, [facility] [address] [id number] [address] [place] [address], [place] [address] Apr, [facility] [address] [id number] [address] [place] [address], [place] [address] Apr, [facility] [address] [id number] [address] [place] [address], [place] [address] Apr, [facility] [address] [id number] [address] [place] [address], [place] [address] Apr, [facility] [address] [id number] [address] [place] [address], [place] [address] Apr, [facility] [address] [id number] [address] [place] [address], [place] [address] Apr, [facility] [address] [id number] [address] [place] [address], [place] [address] Apr, [facility] [address] [id number] [address] [place] [address], [place] [address] Apr, [facility] [address] [id number] [address] [place] [address], [place] [address] Apr, [facility] [address] [id number] [address] [place] [address], [place] [address] Apr, [facility] [address] [id number] [address] [place] [address], [place] [address] Apr, [facility] [address] [id number] [address] [place] [address], [place] [address] Apr, [facility] [address] [id number] [address] [place] [address], [place] [address] Jan, [facility] [address] [id number] [address] [place] [address], [place] [address] Jan, [facility] [address] [id number] [address] [place] [address], [place] [address] 08 Jan, 2013 [facility] [address] [id number] [address] [place] [address], [place] [address] Jan, [facility] [address] [id number] [address] [place] [address] Jan, [facility] [address] [id number] [address] [place] [address], [place] [address] Jan, [facility] [address] [id number] [address] [place] [address], [place] [address] Jan, [facility] [address] [id number] [address] [place] [address], [place] [address] Dec, [facility] [address] [id number] [address] [place] [address], [place] [address] Dec, [facility] [address] [id number] [address] [place] [address], [place] [address] Dec, [facility] [address] [id number] [address] [place] [address], [place] [address] Nov, [facility] [address] [id number] [address] [place] [address], [place] [address] Nov, [facility] [address] [id number] [address] [place] [address], [place] [address] Nov, [facility] [address] [id number] [address] [place] [address], [place] [address] Nov, [facility] [address] [id number] [address] [place] [address], [place] [address] Oct, [facility] [address] [id number] [address] [place] [address], [place] [address] Oct, [facility] [address] [id number] [address] [place] [address], [place] [address] Oct, [facility] [address] [id number] [address] [place] [address], [place] [address] Oct, [facility] [address] [id number] [address] [place] [address], [place] [address] Oct, [facility] [address] [id number] [address] [place] [address], [place] [address] Sep, [facility] [address] [id number] [address] [place] [address], [place] [address] Sep, [facility] [address] [id number] [address] [place] [address], [place] [address] Sep, [facility] [address] [id number] [address] [place] [address], [place] [address] Sep, [facility] [address] [id number] [address] [place] [address], [place] [address] Sep, [facility] [address] [id number] [address] [place] [address], [place] [address] Sep, [facility] [address] [id number] [address] [place] [address], [place] [address] Sep, [facility] [address] [id number] [address] [place] [address], [place] [address] Aug, [facility] [address] [id number] [address] [place] [address], [place] [address] Aug, [facility] [address] [id number] [address] [place] [address], [place] [address] July, [facility] [address] [id number] [address] [place] [address], [place] [address] Jun, [facility] [address] [id number] [address] [place] [address], [place] [address] Jun, [facility] [address] [id number] [address] [place] [address], [place] [address] Jun, [facility] [address] [id number] [address] [place] [address], [place] [address] Apr, [facility] [address] [id number] [address] [place] [address], [place] [address] Apr, [facility] [address] [id number] [address] [place] [address], [place] [address] Apr, [facility] [address] [id number] [address] [place] [address], [place] [address] Mar, [facility] [address] [id number] [address] [place] [address], [place] [address] Mar, [facility] [address] [id number] [address] [place] [address], [place] [address] Mar, [facility] [address] [id number] [address] [place] [address], [place] [address] Mar, [facility] [address] [id number] [address] [place] [address], [place] [address] 07 Mar, 2012 [facility] [address] [id number] [address] [place] [address], [place] [address] 14 Feb, 2012 [facility] [address] [id number] [address] [place] [address], [place] [address] 14 Feb, 2012 [facility] [address] [id number] [address] [place] [address], [place] [address] 13 Jan, 2012 [facility] [address] [id number] [address] [place] [address], [place] [address] 13 Jan, 2012 [facility] [address] [id number] [address] [place] [address], [place] [address] 13 Jan, 2012 [facility] [address] [id number] [address] [place] [address], [place] [address] 13 Jan, 2012 [facility] [address] [id number] [address] [place] [address], [place] [address] Jan, [facility] [address] [id number] [address] [place] [address], [place] [address] 07 Jan, 2012 [facility] [address] [id number] [address] [place] [address], [place] [address] 06 Jan, 2012 [facility] [address] [id number] [address] [place] [address], [place] [address] 31 Dec, 2011 [facility] [address] [id number] [address] [place] [address], [place] [address] 31 Dec, 2011 [facility] [address] [id number] [address] [place] [address], [place] [address] 30 Dec, 2011 [facility] [facility] [address] [id number] [address] [place] [address], [place] [address] 30 Dec, 2011 [facility] [address] [id number] [address] [place] [address], [place] [address] 30 Dec, 2011 [facility] [address] [id number] [address] [place] [address], [place] [address] Dec, [facility] [address] [id number] [address] [place] [address], [place] [address] Dec, [facility] [address] [id number] [address] [place] [address], [place] [address] Dec, [facility] [address] [id number] [address] [place] [address], [place] [address] Dec, [facility] [address] [id number] [address] [place] [address], [place] [address] Dec, [facility] [address] [id number] [address] [place] [address], [place] [address] Oct, [facility] [address] [id number] [address] [place] [address], [place] [address] Oct, [facility] [address] [id number] [address] [place] [address], [place] [address] Aug, [facility] [address] [id number] [address] [place] [address], [place] [address] Aug, [facility] [address] [id number] [address] [place] [address], [place] [address] July, [facility] [address] [id number] [address] [place] [address], [place] [address] Jun, [facility] [address] [id number] [address] [place] [address], [place] [address] Jun, [facility] [address] [id number] [address] [place] [address], [place] [address] May, [facility] [address] [id number] [address] [place] [address], [place] [address] Apr, [facility] [address] [id number] [address] [place] [address], [place] [address] Apr, [facility] [address] [id number] [address] [place] [address], [place] [address] Mar, [facility] [address] [id number] [address] [place] [address], [place] [address] 16 Mar, 2011 [facility] [address] [id number] [address] [place] [address], [place] [address] 19 Feb, 2011 [facility] [address] [id number] [address] [place] [address], [place] [address] 15 Feb, 2011 [facility] [address] [id number] [address] [place] [address], [place] [address] 13 Feb, 2011 [facility] [address] [id number] [address] [place] [address], [place] [address] 13 Feb, 2011 [facility] [address] [id number] [address] [place] [address], [place] [address] 11 Jan, 2011 [facility] [address] [id number] [address] [place] [address], [place] [address] 17 Dec, 2010 [facility] [address] [id number] [address] [place] [address], [place] [address] 08 Feb, 2010 [facility] [address] [id number] [address] [place] [address], [place] [address] 02 Feb, 2010 [facility] [address] [id number] [address] [place] [address], [place] [address] Feb, [facility] [address] [id number] [address] [place] [address], [place] [address] Feb, [facility] [address] [id number] [address] [place] [address], [place] [address] 15 Dec, 2009 [facility] [address] [id number] [address] [place] [address], [place] [address] 15 Dec, 2009 [facility] [address] [id number] [address] [place] [address], [place] [address] Oct, [facility] [address] [id number] [address] [place] [address], [place] [address] 15 Jun, 2009 [facility] [address] [id number] [address] [place] [address], [place] [address] Feb, [facility] [address] [facility] [id number] [address] [place] [address] Feb, [facility] [address] [facility] [id number] [address] [place] [address] Feb, [facility] [address] [facility] [id number] [address] [place] [address] Dec, IMMUNIZATIONS No Known Immunizations SOCIAL HISTORY [...] 1985, 1987 Surgical History cholecystectomy Surgical History [facility] Filter 06/2009 Surgical History Left leg exploratory surgery r/t clot 19 Surgical History left shoulder surgery 09/14/17 Surgical History lap band removed 12/2017 Surgical History gastic sleeve 01/2018 Surgical History Back surgery 2018 Surgical History Partial Thyroidectomy - left side 2019 Hospitalization History Ruptured Ovarian Cyst with abd bleed ing 11/2009 Hospitalization History Broken Back 06/2018
--- OUTSIDE RECORDS SUMMARY | 2019-10-19 12:22 | XMS REPORT ---
Author Author Mary Jane Mcginnis Doctor Organization [facility] Address Unknown Phone Unavailable Care Team Providers Care Balancing Machine Operator Name Role Phone Migration, Doctor Unavailable Unavailable PROBLEMS Type Condition ICD9-CM Code UJK80-XL Code Onset Dates Condition S tatus SNOMED Code Problem Thyroid follicular adenoma D34 Act phylicia 146814147 Problem History of DVT (deep vein thrombosis) Z86.718 Active 709904067 Problem Factor V Leiden D68.51 Active 3070 89294 Problem half-way (current) use of anticoagulants Z79.01 Active 995067340 Problem Hypertriglyceridemia E78.1 Active 247877258 Problem Presence of IVC filter Z95.828 Active 764090540 Problem 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 Active 578502926 Problem Peripheral edema R60.9 Active 271 825797 Problem Excessive daytime sleepiness G47.19 A ctive [id number] Problem Gastroesophageal reflux disease, esophagitis pre sence not specified K21.9 Active 193299542 Problem Chronic pain due to trauma G89.21 Act phylicia 051004954 Problem Pelvic pain R10.2 Active 94516123 Problem Subclinical hypothyroidism E03.9 Act phylicia 86796280 Problem Generalized anxiety disorder F41.1 A ctive 496889125 Problem Thyroid nodule E04.1 Active 73774 5005 Problem Morbid obesity E66.01 Active 97802 6002 Problem Moderate episode of recurrent major depressive disorder F33.1 Active 061215248 Problem Vitamin D deficiency E55.9 Active 14038735 ALLERGIES No Information ENCOUNTERS Encounter Location Date Diagnosis [facility] [address] [facility] [id number] [address] [place] [phone] July, [facility] [address] [facility] [id number] [address] [place] [phone] July, Subclinical hypothyroidism E 03.9 and Anemia D64.9 [facility] [address] [facility] [id number] [address] [place] [address] July, Thyroid nodule E04.1 ; Hyper triglyceridemia E78.1 ; Excessive daytime sleepiness G47.19 and Vitamin D deficiency E55.9 [place] [address] [facility] [id number] [address] [place] [phone] July, Hypertriglyceridemia E78.1 ; Excessive daytime sleepiness G47.19 ; Vitamin D deficiency E55.9 ; Morbid obesity E66.01 ; Peripheral edema R60.9 ; Generalized anxiety disorder F41.1 and Chronic pain due to trauma G89.21 [place] [address] [facility] [id number] [address] [place] [address] Jun, [place] [address] [facility] [id number] [phone] 15 Jun, 2019 Back pain with history of sp inal surgery M54.9 [place] [address] [place] [id number] [place] [phone] 12 Apr, 2019 Back pain with history of sp inal surgery M54.9 [place] [address] [place] [id number] [address] [place] [phone] 11 Apr, 2019 [place] [address] [address] 10 Apr, 2019 Gastroenteritis K52.9 ; Back pain with history of spinal surgery M54.9 ; Dermatofibroma of lower leg, unspecified laterality D23.70 and Morbid obesity E66.01 [place] [address] [place] [id number] [address] [place] [address] Mar, [place] [address] [place] [id number] [address] [place] [address] Jan, [place] [address] [place] [id number] [place] [address] Jan, [place] [address] [place] [id number] [address] [place] [address] Dec, Encounter for weight managem ent Z76.89 [place] [address] [place] [id number] [address] [place] [address] Dec, Encounter for weight managem ent Z76.89 and Screening mammogram, encounter for Z12.31 [facility] [address] [facility] [id number] [address] [place] [phone] Nov, Encounter for weight managem ent Z76.89 [place] [address] [facility] [id number] [address] [place] [address] Nov, Thyroid nodule E04.1 [place] [address] [facility] [id number] [address] [place] [address] Nov, Thyroid nodule E04.1 [place] [address] [facility] [id number] [address] [place] [address] Nov, Thyroid nodule E04.1 [place] [address] [facility] [id number] [address] [place] [address] Oct, Syncope, unspecified syncope type R55 and Encounter for weight management Z76.89 [place] [address] [facility] [id number] [address] [place] [address] Oct, Morbid obesity E66.01 [place] [address] [facility] [id number] [address] [place] [address] Oct, Hypertriglyceridemia E78.1 [place] [address] [place] [id number] [address] [place] [address] Oct, [place] [address] [place] [id number] [address] [place] [address] Oct, Hypertriglyceridemia E78.1 [place] [address] [facility] [id number] [address] [place] [phone] Sep, Hypertriglyceridemia E78.1 a nd Vitamin D deficiency E55.9 [place] [address] [facility] [id number] [address] [place] [address] Sep, [place] [address] [place] [id number] [address] [place] [address] Sep, Morbid obesity E66.01 ; Mode rate episode of recurrent major depressive disorder F33.1 ; Hypertriglyceridemia E78.1 and Vitamin D deficiency E55.9 [facility] [address] [facility] [id number] [address] [place] [phone] Aug, [facility] [address] [facility] [id number] [address] [place] [address] July, [facility] [address] [facility] [id number] [address] [place] [address] July, [facility] [address] [id number] [address] [place] [address] Jun, [facility] [address] [facility] [id number] [place] [address] Jun, [facility] [address] [place] [id number] [place] [address] Jun, Closed compression fracture of L3 lumbar vertebra with routine healing, subsequent encounter S32.030D and Drug-induced constipation K59.03 [facility] [address] [facility] [id number] [address] [place] [phone] Jun, [facility] [address] [place] [id number] [place] [address] Jun, [facility] [address] [place] [id number] [address] [place] [address] Apr, [facility] [address] [facility] [id number] [address] [place] [address] Apr, Morbid obesity E66.01 [facility] [address] [place] [id number] [address] [place] [address] Apr, Morbid obesity E66.01 ; Hype rtriglyceridemia E78.1 ; Gastroesophageal reflux disease, esophagitis presence not specified K21.9 and Joint pain M25.50 [facility] [address] [place] [id number] [address] [place] [phone] Feb, [facility] [address] [place] [id number] [address] [place] [phone] 06 Feb, 2018 [facility] [address] [facility] [id number] [address] [place] [address] Jan, Acute bacterial conjunctivit is H10.30 [facility] [address] [facility] [id number] [address] [place] [address] 08 Dec, 2017 [facility] [address] [place] [id number] [place] [phone] 04 Dec, 2017 [facility] [address] [facility] [id number] [address] [place] [address] 17 Nov, 2017 [facility] [address] [place] [id number] [place] [address] 07 Nov, 2017 Obstructive sleep apnea G47. 33 ; Morbid obesity E66.01 and Gastroesophageal reflux disease, esophagitis presence not specified K21.9 [facility] [address] [place] [id number] [address] [place] [id number] 06 Nov, 2017 Encounter for examination of eyes and vision without abnormal findings Z01.00 [facility] [address] [place] [id number] [place] [phone] 31 Oct, 2017 Thyroid nodule E04.1 and Scr eening for breast cancer Z12.31 [facility] [address] [place] [id number] [address] [place] [address] 23 Oct, 2017 History of DVT (deep vein th rombosis) Z86.718 ; Thyroid nodule E04.1 and Gastroesophageal reflux disease, esophagitis presence not specified K21.9 [facility] [address] [facility] [id number] [address] [place] [address] Oct, [facility] [address] [place] [id number] [place] [phone] Sep, [facility] [address] [facility] [id number] [address] [place] [phone] Aug, [facility] [address] [place] [id number] [place] [address] Aug, [place] [id number] [place] [address] Aug, Acute pain of left shoulder M25.512 and Thyroid nodule E04.1 [place] [address] [place] [id number] [address] [place] [address] July, Superior glenoid labrum lesi on of left shoulder, subsequent encounter S43.432D [place] [address] [place] [id number] [address] [place] [address] Jun, History of DVT (deep vein th rombosis) Z86.718 [place] [address] [place] [id number] [place] [address] Jun, History of DVT (deep vein th rombosis) Z86.718 [place] [address] [place] [id number] [address] [place] [address] Jun, Impingement syndrome, should er, left M75.42 [place] [address] [place] [id number] [address] [place] [address] May, Subacromial bursitis of left shoulder joint M75.52 [place] [address] [place] [id number] [address] [place] [address] May, [place] [address] [place] [id number] [address] [place] [address] May, Hypertriglyceridemia E78.1 ; 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 buttermaker (current) use of anticoagulants Z79.01 and Excessive daytime sleepiness G47.19 [place] [address] [place] [id number] [address] [place] [address] May, History of DVT (deep vein th rombosis) Z86.718 ; Generalized anxiety disorder F41.1 ; Hypertriglyceridemia E78.1 ; 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 buttermaker (current) use of anticoagulants Z79.01 ; Subacromial bursitis of left shoulder joint M75.52 and Excessive daytime sleepiness G47.19 [place] [address] [place] [id number] [address] [place] [address] May, [facility] [address] [id number] [address] [place] [address] May, half-way (current) use of a nticoagulants Z79.01 [facility] [address] [id number] [address] [place] [address] Apr, half-way (current) use of a nticoagulants Z79.01 [facility] [address] [id number] [address] [place] [address] Apr, 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 buttermaker (current) use of a nticoagulants Z79.01 [facility] [address] [id number] [address] [place] [phone] 20 Apr, 2017 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 buttermaker (current) use of a nticoagulants Z79.01 [facility] [address] [id number] [address] [place] [address] Apr, [facility] [address] [id number] [address] [place] [address] Apr, half-way (current) use of a nticoagulants Z79.01 [facility] [address] [id number] [address] [place] [phone] 13 Apr, 2017 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 buttermaker (current) use of a nticoagulants Z79.01 [facility] [address] [id number] [address] [place] [address] Apr, 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 buttermaker (current) use of a nticoagulants Z79.01 [facility] [address] [id number] [address] [place] [address] Apr, half-way (current) use of a nticoagulants Z79.01 [facility] [address] [id number] [address] [place] [address] 07 Apr, 2017 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 buttermaker (current) use of a nticoagulants Z79.01 [facility] [address] [id number] [address] [place] [address] Apr, half-way (current) use of a nticoagulants Z79.01 [facility] [address] [id number] [address] [place] [address] Mar, half-way (current) use of a nticoagulants Z79.01 [facility] [address] [id number] [address] [place] [address] Mar, [facility] [address] [id number] [address] [place] [address] Mar, half-way (current) use of a nticoagulants Z79.01 [facility] [id number] [place] [id number] Jan, Dental examination Z01.20 [facility] [address] [id number] [place] [id number] Jan, [facility] [address] [facility] [id number] [address] [place] [address] Jan, 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 buttermaker (current) use of a nticoagulants Z79.01 [facility] [address] [facility] [id number] [address] [place] [address] Jan, History of DVT (deep vein th rombosis) Z86.718 [place] [id number] [facility] [id number] [address] [place] [address] Jan, Generalized anxiety disorder F41.1 and Peripheral edema R60.9 [facility] [address] [id number] [address] [place] [address] Nov, History of DVT (deep vein th rombosis) Z86.718 [facility] [address] [facility] [id number] [address] [place] [address] Nov, 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 buttermaker (current) use of a nticoagulants Z79.01 [facility] [address] [facility] [id number] [address] [place] [address] Nov, Acute non-recurrent maxillar y sinusitis J01.00 [place] [address] [facility] [id number] [address] [place] [address] Oct, half-way (current) use of a nticoagulants Z79.01 [place] [id number] [facility] [id number] [address] [place] [address] Oct, Personal history of venous t hrombosis and embolism Z86.718 [place] [address] [place] [id number] [address] [place] [address] Sep, [place] [address] [place] [id number] [place] [address] Sep, Personal history of venous t hrombosis and embolism Z86.718 [place] [address] [place] [id number] [place] [address] Sep, half-way (current) use of a nticoagulants Z79.01 [place] [address] [place] [id number] [address] [place] [address] Sep, 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 buttermaker (current) use of a nticoagulants Z79.01 [place] [address] [place] [id number] [place] [address] Sep, Generalized anxiety disorder F41.1 and History of DVT (deep vein thrombosis) Z86.718 [place] [address] [place] [id number] [address] [place] [address] Aug, History of DVT (deep vein th rombosis) Z86.718 ; Generalized anxiety disorder F41.1 ; 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 buttermaker (current) use of anticoagulants Z79.01 ; Pelvic pain R10.2 ; Hypertriglyceridemia E78.1 ; Excessive daytime sleepiness G47.19 ; Colon cancer screening Z12.11 ; Screening for breast cancer Z12.39 ; Peripheral edema R60.9 and Gastroesophageal reflux disease, esophagitis presence not specified K21.9 [place] [address] [place] [id number] [address] [place] [address] Aug, [place] [address] [id number] [address] [place] [address] July, [place] [address] [facility] [id number] [address] [place] [address] July, History of DVT (deep vein th rombosis) Z86.718 [place] [address] [facility] [id number] [address] [place] [address] Jun, Generalized anxiety disorder F41.1 [place] [address] [id number] [address] [place] [address] Jun, History of DVT (deep vein th rombosis) Z86.718 [place] [address] [id number] [address] [place] [address] Jun, History of DVT (deep vein th rombosis) Z86.718 [place] [address] [facility] [id number] [address] [place] [address] Jun, History of DVT (deep vein th rombosis) Z86.718 [place] [address] [id number] [address] [place] [address] Jun, History of DVT (deep vein th rombosis) Z86.718 [place] [address] [facility] [id number] [address] [place] [address] May, History of DVT (deep vein th rombosis) Z86.718 [place] [address] [id number] [address] [place] [address] May, half-way (current) use of a nticoagulants Z79.01 [place] [address] [facility] [id number] [address] [place] [address] May, half-way (current) use of a nticoagulants Z79.01 [place] [address] [facility] [id number] [address] [place] [address] May, History of DVT (deep vein th rombosis) Z86.718 [facility] [address] [id number] [address] [place] [phone] 27 Apr, 2016 Bacterial conjunctivitis of left eye H10.9 and H/O motion sickness Z87.898 [facility] [address] [id number] [address] [place] [address] 24 Apr, 2016 History of DVT (deep vein th rombosis) Z86.718 [facility] [address] [id number] [address] [place] [address] Apr, History of DVT (deep vein th rombosis) Z86.718 [facility] [address] [id number] [address] [place] [address] 15 Apr, 2016 History of DVT (deep vein th rombosis) Z86.718 [facility] [address] [id number] [address] [place] [address] 14 Apr, 2016 half-way (current) use of a nticoagulants Z79.01 [facility] [address] [id number] [address] [place] [address] Mar, [facility] [address] [id number] [address] [place] [address] Mar, 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 buttermaker (current) use of a nticoagulants Z79.01 [facility] [address] [id number] [address] [place] [phone] Mar, Hypertriglyceridemia E78.1 a nd half-way (current) use of anticoagulants Z79.01 [facility] [address] [id number] [address] [place] [address] Feb, half-way (current) use of a nticoagulants Z79.01 [facility] [address] [id number] [address] [place] [address] Feb, half-way (current) use of a nticoagulants Z79.01 [facility] [address] [id number] [address] [place] [address] Feb, half-way (current) use of a nticoagulants Z79.01 [place] [id number] [id number] [address] [place] [phone] Dec, [facility] [address] [id number] [address] [place] [address] Nov, [place] [address] [facility] [id number] [address] [place] [address] Nov, History of DVT (deep vein th rombosis) Z86.718 ; Tremulousness R25.1 ; Generalized anxiety disorder F41.1 ; Peripheral edema R60.9 and Hypertriglyceridemia E78.1 [place] [address] [id number] [address] [place] [address] Oct, History of DVT (deep vein th rombosis) Z86.718 [place] [address] [facility] [id number] [address] [place] [address] Oct, [place] [address] [id number] [address] [place] [address] Sep, History of DVT (deep vein th rombosis) Z86.718 [place] [address] [id number] [address] [place] [address] Sep, half-way (current) use of a nticoagulants Z79.01 [place] [address] [id number] [address] [place] [address] July, [place] [address] [id number] [address] [place] [phone] July, 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 buttermaker (current) use of a nticoagulants Z79.01 [place] [address] [facility] [id number] [address] [place] [phone] July, half-way (current) use of a nticoagulants Z79.01 [place] [id number] [id number] [address] [place] [id number] Jun, half-way (current) use of a nticoagulants Z79.01 [facility] [place] [address] [place] [id number] [address] [place] [phone] Jun, Coccyx pain M53.3 ; Encounte r for therapeutic drug level monitoring Z51.81 and half-way current use 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.01 [place] [address] [address] [facility] [id number] [address] [place] [phone] May, Abnormal mammogram R92.8 [facility] [place] [address] [place] [id number] [address] [place] [phone] May, [facility] [place] [address] [address] [place] [id number] [place] [phone] May, Acute vaginitis N76.0 and En counter for other screening for malignant neoplasm of breast Z12.39 [place] [address] [address] [place] [id number] [address] [place] [phone] Apr, [place] [address] [address] [place] [id number] [address] [place] [id number] Apr, [place] [address] [address] [place] [id number] [address] [place] [id number] Apr, Peripheral edema R60.9 [place] [address] [address] [place] [id number] [place] [phone] Apr, half-way (current) use of a nticoagulants Z79.01 [place] [address] [address] [facility] [id number] [address] [place] [phone] Apr, Peripheral edema R60.9 and L jose martin term (current) 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 Z79.01 [place] [address] [address] [facility] [id number] [address] [place] [phone] Apr, half-way (current) use of a nticoagulants Z79.01 [place] [address] [address] [facility] [id number] [address] [place] [phone] Apr, [facility] [address] [id number] [address] [place] [phone] Apr, 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 buttermaker (current) use of a nticoagulants Z79.01 [facility] [address] [id number] [address] [place] [address] Apr, Peripheral edema R60.9 [place] [address] [id number] [address] [place] [address] Mar, 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 buttermaker (current) use of a nticoagulants Z79.01 [place] [address] [id number] [address] [place] [address] Mar, half-way (current) use of a nticoagulants Z79.01 and Hypertriglyceridemia E78.1 [place] [address] [id number] [address] [place] [address] Mar, 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 buttermaker (current) use of a nticoagulants Z79.01 [place] [id number] [id number] [address] [place] [address] Mar, half-way (current) use of a nticoagulants Z79.01 [place] [address] [id number] [address] [place] [address] Mar, [place] [address] [id number] [address] [place] [address] Mar, 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 buttermaker (current) use of a nticoagulants Z79.01 ; Hypertriglyceridemia E78.1 ; Personal history of venous thrombosis and embolism Z86.718 and Lump R22.9 [place] [address] [id number] [address] [place] [address] Mar, Personal history of venous t hrombosis and embolism Z86.718 [place] [address] [id number] [address] [place] [address] Mar, Personal history of venous t hrombosis and embolism Z86.718 [facility] [address] [id number] [address] [place] [address] Mar, [facility] [address] [id number] [address] [place] [address] Dec, Personal history of venous t hrombosis and embolism Z86.718 [facility] [address] [id number] [address] [place] [address] Dec, Personal history of venous t hrombosis and embolism V12.51 [facility] [address] [id number] [address] [place] [address] Nov, Personal history of venous t hrombosis and embolism V12.51 [facility] [address] [id number] [address] [place] [address] Nov, Personal history of venous t hrombosis and embolism V12.51 [facility] [address] [id number] [address] [place] [address] Nov, Personal history of venous t hrombosis and embolism V12.51 [facility] [address] [id number] [address] [place] [address] Nov, Personal history of venous t hrombosis and embolism V12.51 [facility] [address] [id number] [address] [place] [address] Nov, [facility] [address] [id number] [address] [place] [address] Oct, Dysuria 788.1 [facility] [address] [id number] [address] [place] [address] Oct, Personal history of venous t hrombosis and embolism V12.51 [facility] [address] [id number] [address] [place] [address] Oct, [facility] [address] [id number] [address] [place] [address] Oct, Personal history of venous t hrombosis and embolism V12.51 [facility] [address] [id number] [address] [place] [address] Sep, Personal history of venous t hrombosis and embolism V12.51 [facility] [address] [id number] [address] [place] [address] Sep, Personal history of venous t hrombosis and embolism V12.51 [facility] [address] [id number] [address] [place] [address] Aug, Personal history of venous t hrombosis and embolism V12.51 [facility] [address] [id number] [address] [place] [address] Aug, Personal history of venous t hrombosis and embolism V12.51 [facility] [address] [id number] [address] [place] [address] Aug, Personal history of venous t hrombosis and embolism V12.51 [facility] [address] [id number] [address] [place] [address] July, Generalized anxiety disorder 300.02 ; Abdominal pain, left lower quadrant 789.04 and Personal history of venous thrombosis and embolism V12.51 [facility] [address] [id number] [address] [place] [address] 14 Jun, 2014 [facility] [address] [id number] [address] [place] [address] Jun, [facility] [address] [id number] [address] [place] [address] May, [facility] [address] [id number] [address] [place] [address] May, [facility] [address] [id number] [address] [place] [address] May, [facility] [address] [id number] [address] [place] [address] May, [facility] [address] [id number] [address] [place] [address] May, [facility] [address] [id number] [address] [place] [address], [place] [address] May, [facility] [address] [id number] [address] [place] [address], [place] [address] May, [facility] [address] [id number] [address] [place] [address], [place] [address] May, [facility] [address] [id number] [address] [place] [address], [place] [address] Apr, [facility] [address] [id number] [address] [place] [address], [place] [address] Apr, [facility] [address] [id number] [address] [place] [address], [place] [address] Apr, [facility] [address] [id number] [address] [place] [address], [place] [address] Apr, [facility] [address] [id number] [address] [place] [address], [place] [address] Apr, [facility] [address] [id number] [address] [place] [address], [place] [address] Mar, [facility] [address] [id number] [address] [place] [address], [place] [address] Mar, [facility] [address] [id number] [address] [place] [address], [place] [address] Mar, [facility] [address] [id number] [address] [place] [address], [place] [address] Mar, [facility] [address] [id number] [address] [place] [address], [place] [address] Mar, [facility] [address] [id number] [address] [place] [address], [place] [address] Mar, [facility] [address] [id number] [address] [place] [address], [place] [address] Feb, [facility] [address] [id number] [address] [place] [address], [place] [address] Feb, [facility] [address] [id number] [address] [place] [address], [place] [address] Feb, [facility] [address] [id number] [address] [place] [address], [place] [address] Feb, [facility] [address] [id number] [address] [place] [address], [place] [address] Feb, [facility] [address] [id number] [address] [place] [address], [place] [address] Feb, [facility] [address] [id number] [address] [place] [address], [place] [address] Feb, [facility] [address] [id number] [address] [place] [address], [place] [address] Feb, [facility] [address] [id number] [address] [place] [address], [place] [address] Feb, [facility] [address] [id number] [address] [place] [address], [place] [address] Feb, [facility] [address] [id number] [address] [place] [address], [place] [address] Jan, [facility] [address] [id number] [address] [place] [address], [place] [address] Jan, [facility] [address] [id number] [address] [place] [address], [place] [address] Jan, [facility] [address] [id number] [address] [place] [address], [place] [address] Jan, [facility] [address] [id number] [address] [place] [address], [place] [address] Jan, [facility] [address] [id number] [address] [place] [address], [place] [address] Jan, [facility] [address] [id number] [address] [place] [address], [place] [address] Jan, [facility] [address] [id number] [address] [place] [address], [place] [address] Jan, [facility] [address] [id number] [address] [place] [address], [place] [address] Jan, [facility] [address] [id number] [address] [place] [address], [place] [address] Jan, [facility] [address] [id number] [address] [place] [address], [place] [address] Dec, [facility] [address] [id number] [address] [place] [address], [place] [address] Dec, [facility] [address] [id number] [address] [place] [address], [place] [address] Dec, [facility] [address] [id number] [address] [place] [address], [place] [address] Dec, [facility] [address] [id number] [address] [place] [address], [place] [address] Dec, [facility] [address] [id number] [address] [place] [address], [place] [address] Dec, [facility] [address] [id number] [address] [place] [address] Dec, [facility] [address] [id number] [address] [place] [address] Dec, [facility] [address] [id number] [address] [place] [address] Dec, [facility] [address] [id number] [address] [place] [address], [place] [address] Dec, [facility] [address] [id number] [address] [place] [address], [place] [address] Dec, [facility] [address] [id number] [address] [place] [address], [place] [address] Dec, [facility] [address] [id number] [address] [place] [address], [place] [address] Dec, [facility] [address] [id number] [address] [place] [address], [place] [address] Dec, [facility] [address] [id number] [address] [place] [address], [place] [address] Dec, [facility] [address] [id number] [address] [place] [address], [place] [address] 30 Nov, 2013 [facility] [address] [id number] [address] [place] [address], [place] [address] 30 Nov, 2013 [facility] [address] [id number] [address] [place] [address], [place] [address] 26 Nov, 2013 [facility] [address] [id number] [address] [place] [address], [place] [address] 26 Nov, 2013 [facility] [address] [id number] [address] [place] [address], [place] [address] 24 Nov, 2013 [facility] [address] [id number] [address] [place] [address], [place] [address] 24 Nov, 2013 [facility] [address] [id number] [address] [place] [address], [place] [address] 23 Nov, 2013 [facility] [address] [id number] [address] [place] [address], [place] [address] 23 Nov, 2013 [facility] [address] [id number] [address] [place] [address], [place] [address] 18 Nov, 2013 [facility] [address] [id number] [address] [place] [address], [place] [address] 18 Sep, 2013 [facility] [address] [id number] [address] [place] [address], [place] [address] 17 Nov, 2013 [facility] [address] [id number] [address] [place] [address], [place] [address] 17 Nov, 2013 [facility] [address] [id number] [address] [place] [address], [place] [address] 11 Nov, 2013 [facility] [address] [id number] [facility] [place] [address] 11 Nov, 2013 [facility] [address] [id number] [address] [place] [address], [place] [address] Nov, 2013 [facility] [address] [id number] [address] [place] [address], [place] [address] Nov, 2013 [facility] [address] [id number] [address] [place] [address], [place] [address] Nov, 2013 [facility] [address] [id number] [address] [place] [address], [place] [address] Nov, [facility] [address] [id number] [address] [place] [address], [place] [address] Sep, [facility] [address] [id number] [address] [place] [address], [place] [address] Sep, [facility] [address] [id number] [address] [place] [address], [place] [address] Sep, [facility] [address] [id number] [address] [place] [address], [place] [address] Sep, [facility] [address] [id number] [address] [place] [address], [place] [address] Sep, [facility] [address] [id number] [address] [place] [address], [place] [address] Sep, [facility] [address] [id number] [address] [place] [address], [place] [address] Aug, [facility] [address] [id number] [address] [place] [address], [place] [address] Aug, [facility] [address] [id number] [address] [place] [address], [place] [address] Aug, [facility] [address] [id number] [address] [place] [address], [place] [address] Aug, [facility] [address] [id number] [address] [place] [address], [place] [address] Aug, [facility] [address] [id number] [facility] [place] [address] Aug, [facility] [address] [id number] [address] [place] [address], [place] [address] Aug, [facility] [address] [id number] [address] [place] [address], [place] [address] Aug, [facility] [address] [id number] [address] [place] [address], [place] [address] Aug, [facility] [address] [id number] [address] [place] [address], [place] [address] Aug, [facility] [address] [id number] [address] [place] [address], [place] [address] Aug, [facility] [address] [id number] [address] [place] [address], [place] [address] July, [facility] [address] [id number] [address] [place] [address], [place] [address] July, [facility] [address] [id number] [address] [place] [address], [place] [address] Jun, [facility] [address] [id number] [address] [place] [address], [place] [address] Jun, [facility] [address] [id number] [address] [place] [address], [place] [address] Jun, [facility] [address] [id number] [address] [place] [address], [place] [address] Jun, [facility] [address] [id number] [address] [place] [address], [place] [address] Jun, [facility] [address] [id number] [address] [place] [address], [place] [address] Jun, [facility] [address] [id number] [address] [place] [address], [place] [address] 15 Jun, 2013 [facility] [address] [id number] [facility] [place] [address] 15 Jun, 2013 [facility] [address] [id number] [facility] [place] [address] 11 Jun, 2013 [facility] [address] [id number] [facility] [place] [address] 11 Jun, 2013 [facility] [address] [id number] [facility] [place] [address] 10 Jun, 2013 [facility] [address] [id number] [address] [place] [address], [place] [address] Jun, [facility] [address] [id number] [address] [place] [address], [place] [address] 25 May, 2013 [facility] [address] [id number] [address] [place] [address], [place] [address] May, [facility] [address] [id number] [address] [place] [address], [place] [address] May, [facility] [address] [id number] [address] [place] [address], [place] [address] May, [facility] [address] [id number] [address] [place] [address], [place] [address] May, [facility] [address] [id number] [address] [place] [address], [place] [address] May, [facility] [address] [id number] [address] [place] [address], [place] [address] May, [facility] [address] [id number] [address] [place] [address], [place] [address] 06 May, 2013 [facility] [address] [id number] [address] [place] [address], [place] [address] May, [facility] [address] [id number] [address] [place] [address], [place] [address] May, [facility] [address] [id number] [address] [place] [address], [place] [address] May, [facility] [address] [id number] [facility] [place] [address] May, [facility] [address] [id number] [address] [place] [address], [place] [address] Apr, [facility] [address] [id number] [address] [place] [address], [place] [address] Apr, [facility] [address] [id number] [address] [place] [address], [place] [address] Apr, [facility] [address] [id number] [address] [place] [address], [place] [address] Apr, [facility] [address] [id number] [address] [place] [address], [place] [address] Apr, [facility] [address] [id number] [address] [place] [address], [place] [address] Apr, [facility] [address] [id number] [address] [place] [address], [place] [address] Apr, [facility] [address] [id number] [address] [place] [address], [place] [address] Apr, [facility] [address] [id number] [address] [place] [address], [place] [address] Apr, [facility] [address] [id number] [address] [place] [address], [place] [address] Apr, [facility] [address] [id number] [address] [place] [address], [place] [address] Apr, [facility] [address] [id number] [address] [place] [address], [place] [address] Apr, [facility] [address] [id number] [address] [place] [address], [place] [address] Apr, [facility] [address] [id number] [address] [place] [address], [place] [address] Apr, [facility] [address] [id number] [address] [place] [address], [place] [address] Apr, 2013 [facility] [address] [id number] [address] [place] [address], [place] [address] Apr, 2013 [facility] [address] [id number] [address] [place] [address], [place] [address] Apr, [facility] [address] [id number] [address] [place] [address], [place] [address] Jan, [facility] [address] [id number] [address] [place] [address], [place] [address] Jan, [facility] [address] [id number] [address] [place] [address], [place] [address] Jan, [facility] [address] [id number] [address] [place] [address], [place] [address] Jan, [facility] [address] [id number] [address] [place] [address], [place] [address] Jan, [facility] [address] [id number] [address] [place] [address], [place] [address] Jan, [facility] [address] [id number] [address] [place] [address], [place] [address] Jan, [facility] [address] [id number] [address] [place] [address] Dec, [facility] [address] [id number] [address] [place] [address] Dec, [facility] [address] [id number] [address] [place] [address], [place] [address] Dec, [facility] [address] [id number] [address] [place] [address] Nov, [facility] [address] [id number] [address] [place] [address] 10 Nov, 2012 [facility] [address] [id number] [address] [place] [address] 05 Nov, 2012 [facility] [address] [id number] [address] [place] [address], [place] [address] Nov, [facility] [address] [id number] [address] [place] [address], [place] [address] Oct, [facility] [address] [id number] [address] [place] [address], [place] [address] Oct, [facility] [address] [id number] [address] [place] [address], [place] [address] Oct, [facility] [address] [id number] [address] [place] [address], [place] [address] Oct, [facility] [address] [id number] [address] [place] [address], [place] [address] Oct, [facility] [address] [id number] [address] [place] [address], [place] [address] Sep, [facility] [address] [id number] [address] [place] [address], [place] [address] Sep, [facility] [address] [id number] [address] [place] [address], [place] [address] Sep, [facility] [address] [id number] [address] [place] [address], [place] [address] Sep, [facility] [address] [id number] [address] [place] [address], [place] [address] Sep, [facility] [address] [id number] [address] [place] [address], [place] [address] Sep, [facility] [address] [id number] [address] [place] [address], [place] [address] Sep, [facility] [address] [id number] [address] [place] [address], [place] [address] Aug, [facility] [address] [id number] [address] [place] [address], [place] [address] Aug, [facility] [address] [id number] [address] [place] [address], [place] [address] July, [facility] [address] [id number] [address] [place] [address], [place] [address] Jun, [facility] [address] [id number] [address] [place] [address], [place] [address] Jun, [facility] [address] [id number] [address] [place] [address], [place] [address] Jun, [facility] [address] [id number] [address] [place] [address], [place] [address] Apr, [facility] [address] [id number] [address] [place] [address], [place] [address] Apr, [facility] [address] [id number] [address] [place] [address], [place] [address] Apr, [facility] [address] [id number] [address] [place] [address], [place] [address] Mar, [facility] [address] [id number] [address] [place] [address], [place] [address] Mar, [facility] [address] [id number] [address] [place] [address], [place] [address] Mar, [facility] [address] [id number] [address] [place] [address], [place] [address] Mar, [facility] [address] [id number] [address] [place] [address], [place] [address] Mar, [facility] [address] [id number] [address] [place] [address], [place] [address] 14 Feb, 2012 [facility] [address] [id number] [address] [place] [address], [place] [address] 14 Feb, 2012 [facility] [address] [id number] [address] [place] [address], [place] [address] 13 Jan, 2012 [facility] [address] [id number] [address] [place] [address], [place] [address] Jan, [facility] [address] [id number] [address] [place] [address], [place] [address] 13 Jan, 2012 [facility] [address] [id number] [address] [place] [address] Jan, [facility] [address] [id number] [address] [place] [address], [place] [address] 07 Jan, 2012 [facility] [address] [id number] [address] [place] [address] 07 Jan, 2012 [facility] [address] [id number] [address] [place] [address], [place] [address] Jan, [facility] [address] [id number] [address] [place] [phone] Dec, [facility] [address] [id number] [address] [place] [address], [place] [address] Dec, [facility] [address] [id number] [address] [place] [id number] 30 Dec, 2011 [facility] [address] [id number] [address] [place] [id number] 30 Dec, 2011 [facility] [address] [id number] [address] [place] [id number] 30 Dec, 2011 [facility] [address] [id number] [address] [place] [id number] 30 Dec, 2011 [facility] [address] [id number] [address] [place] [id number] 30 Dec, 2011 [facility] [address] [id number] [address] [place] [address], [place] [address] 30 Dec, 2011 [facility] [address] [id number] [address] [place] [id number] Dec, [facility] [address] [id number] [address] [place] [phone] Dec, [facility] [address] [id number] [address] [place] [address], [place] [address] Oct, [facility] [address] [id number] [address] [place] [address], [place] [address] Oct, [facility] [address] [id number] [address] [place] [address], [place] [address] Aug, [facility] [address] [id number] [address] [place] [address], [place] [address] Aug, [facility] [address] [id number] [address] [place] [address], [place] [address] July, [facility] [address] [id number] [address] [place] [address], [place] [address] Jun, [facility] [address] [id number] [address] [place] [address], [place] [address] Jun, [facility] [address] [id number] [address] [place] [address], [place] [address] May, [facility] [address] [id number] [address] [place] [address], [place] [address] Apr, [facility] [address] [id number] [address] [place] [address], [place] [address] Apr, [facility] [address] [id number] [address] [place] [address], [place] [address] Mar, [facility] [address] [id number] [address] [place] [address], [place] [address] Mar, [facility] [address] [id number] [address] [place] [address], [place] [address] Feb, [facility] [address] [id number] [address] [place] [address], [place] [address] 15 Feb, 2011 [facility] [address] [id number] [address] [place] [address], [place] [address] 13 Feb, 2011 [facility] [address] [id number] [address] [place] [address], [place] [address] Feb, [facility] [address] [id number] [address] [place] [id number] Jan, [facility] [address] [id number] [address] [place] [id number] Dec, [facility] [address] [id number] [address] [place] [phone] Feb, [facility] [address] [id number] [address] [place] [address] Feb, [facility] [address] [id number] [address] [place] [id number] Feb, [facility] [address] [id number] [address] [place] [address] Feb, [facility] [address] [id number] [address] [place] [address] Dec, [facility] [address] [id number] [address] [place] [address] Dec, [facility] [address] [id number] [address] [place] [phone] Oct, [facility] [address] [id number] [address] [place] [address] Jun, [facility] [address] [id number] [address] [place] [address] Feb, [facility] [address] [id number] [address] [place] [address] Feb, [facility] [address] [id number] [address] [place] [address] Feb, [facility] [address] [id number] [address] [place] [id number] Dec, IMMUNIZATIONS No Known Immunizations SOCIAL HISTORY [...] 1985, 1987 Surgical History cholecystectomy Surgical History Florala Filter 06/2009 Surgical History Left leg exploratory surgery r/t clot Surgical History left shoulder surgery 09/14/17 Surgical History lap band removed 12/2017 Surgical History gastic sleeve 01/2018 Surgical History Back surgery 2018 Surgical History Partial Thyroidectomy - left side 2018 Hospitalization History Ruptured Ovarian Cyst with abd bleed ing 11/2009 Hospitalization History Broken Back 06/2018
--- OUTSIDE RECORDS SUMMARY | 2019-10-19 12:22 | XMS REPORT ---
Author Author Mary Jane Mcginnis Doctor Organization [facility] Address Unknown Phone Unavailable Care Team Providers Care Expediter Name Role Phone Migration, Doctor Unavailable Unavailable PROBLEMS Type Condition ICD9-CM Code [id number] Code Onset Dates Condition S tatus SNOMED Code Problem Factor V Leiden D68.51 Active 3070 48797 Problem Thyroid follicular adenoma D34 Act phylicia 770222482 Problem Hypertriglyceridemia E78.1 Active 091770799 Problem History of DVT (deep vein thrombosis) Z86.718 Active 449915097 Problem 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 Active 682048333 Problem [facility]CI (current) use of anticoagulants Z79.01 Active 120810835 Problem Pelvic pain R10.2 Active 35401441 Problem Peripheral edema R60.9 Active 271 822184 Problem Excessive daytime sleepiness G47.19 A ctive 256919130692 Problem Vitamin D deficiency E55.9 Active 14321949 Problem Generalized anxiety disorder F41.1 A ctive 405754224 Problem Chronic pain due to trauma G89.21 Act phylicia 780155478 Problem Presence of IVC filter Z95.828 Active 780938684 Problem Gastroesophageal reflux disease, esophagitis pre sence not specified K21.9 Active 130921329 Problem Thyroid nodule E04.1 Active 17306 5005 Problem Morbid obesity E66.01 Active 16117 6002 Problem Moderate episode of recurrent major depressive disorder F33.1 Active 450109207 ALLERGIES No Information ENCOUNTERS Encounter Location Date Diagnosis [facility] [address] [facility] [id number] [address] [place] [phone] July, [facility] [address] [facility] [id number] [address] [place] [address] July, Thyroid nodule E04.1 ; Hyper triglyceridemia E78.1 ; Excessive daytime sleepiness G47.19 and Vitamin D deficiency E55.9 [facility] [address] [facility] [id number] [address] [place] [address] July, Hypertriglyceridemia E78.1 ; Excessive daytime sleepiness G47.19 ; Vitamin D deficiency E55.9 ; Morbid obesity E66.01 ; Peripheral edema R60.9 ; Generalized anxiety disorder F41.1 and Chronic pain due to trauma G89.21 [place] [address] [id number] [address] [place] [address] 28 Jun, 2019 [place] [address] [id number] [address] [place] [address] Jun, Back pain with history of sp inal surgery M54.9 [place] [address] [id number] [address] [place] [phone] 12 Apr, 2019 Back pain with history of sp inal surgery M54.9 [place] [address] [id number] [address] [place] [address] 11 Apr, 2019 [place] [address] [facility] [id number] [address] [place] [address] 10 Apr, 2019 Gastroenteritis K52.9 ; Back pain with history of spinal surgery M54.9 ; Dermatofibroma of lower leg, unspecified laterality D23.70 and Morbid obesity E66.01 [place] [address] [facility] [id number] [address] [place] [address] Mar, [place] [address] [facility] [id number] [address] [place] [phone] Jan, [place] [address] [id number] [address] [place] [address] Jan, [place] [address] [id number] [address] [place] [address] Dec, Encounter for weight managem ent Z76.89 [place] [address] [facility] [id number] [address] [place] [address] Dec, Encounter for weight managem ent Z76.89 and Screening mammogram, encounter for Z12.31 [place] [address] [id number] [address] [place] [address] 26 Nov, 2018 Encounter for weight managem ent Z76.89 [facility] [address] [facility] [id number] [address] [place] [address] 19 Nov, 2018 Thyroid nodule E04.1 [facility] [address] [facility] [id number] [address] [place] [address] 11 Nov, 2018 Thyroid nodule E04.1 [place] [address] [facility] [id number] [address] [place] [address] 06 Nov, 2018 Thyroid nodule E04.1 [place] [address] [facility] [id number] [address] [place] [address] Oct, Syncope, unspecified syncope type R55 and Encounter for weight management Z76.89 [place] [address] [facility] [id number] [address] [place] [address] Oct, Morbid obesity E66.01 [place] [address] [facility] [id number] [address] [place] [address] Oct, Hypertriglyceridemia E78.1 [place] [address] [facility] [id number] [address] [place] [address] Oct, [place] [address] [facility] [id number] [address] [place] [address] Oct, Hypertriglyceridemia E78.1 [place] [address] [facility] [id number] [address] [place] [address] Sep, Hypertriglyceridemia E78.1 a nd Vitamin D deficiency E55.9 [place] [address] [facility] [id number] [address] [place] [address] Sep, [place] [address] [facility] [id number] [address] [place] [address] Sep, Morbid obesity E66.01 ; Mode rate episode of recurrent major depressive disorder F33.1 ; Hypertriglyceridemia E78.1 and Vitamin D deficiency E55.9 [place] [address] [facility] [id number] [address] [place] [address] Aug, [facility] [address] [id number] [address] [place] [address] July, [facility] [address] [id number] [address] [place] [address] July, [facility] [address] [id number] [address] [place] [address] Jun, [facility] [address] [id number] [address] [place] [address] Jun, [facility] [address] [facility] [id number] [address] [place] [address] Jun, Closed compression fracture of L3 lumbar vertebra with routine healing, subsequent encounter S32.030D and Drug-induced constipation K59.03 [facility] [address] [facility] [id number] [address] [place] [address] Jun, [facility] [address] [facility] [id number] [address] [place] [address] Jun, [facility] [address] [facility] [id number] [address] [place] [address] Apr, [facility] [address] [facility] [id number] [address] [place] [address] Apr, Morbid obesity E66.01 [facility] [address] [facility] [id number] [address] [place] [address] Apr, Morbid obesity E66.01 ; Hype rtriglyceridemia E78.1 ; Gastroesophageal reflux disease, esophagitis presence not specified K21.9 and Joint pain M25.50 [facility] [address] [facility] [id number] [address] [place] [address] Feb, [facility] [address] [facility] [id number] [address] [place] [address] Feb, [facility] [address] [facility] [id number] [address] [place] [address] Jan, Acute bacterial conjunctivit is H10.30 [facility] [address] [facility] [id number] [address] [place] [phone] 08 Dec, 2017 [facility] [address] [facility] [id number] [address] [place] [address] 04 Dec, 2017 [facility] [address] [facility] [id number] [address] [place] [address] 17 Nov, 2017 [facility] [address] [facility] [id number] [address] [place] [address] 07 Nov, 2017 Obstructive sleep apnea G47. 33 ; Morbid obesity E66.01 and Gastroesophageal reflux disease, esophagitis presence not specified K21.9 [facility] [address] [id number] [address] [place] [id number] 06 Nov, 2017 Encounter for examination of eyes and vision without abnormal findings Z01.00 [facility] [address] [facility] [id number] [address] [place] [address] 31 Oct, 2017 Thyroid nodule E04.1 and Scr eening for breast cancer Z12.31 [facility] [address] [facility] [id number] [address] [place] [address] 23 Oct, 2017 History of DVT (deep vein th rombosis) Z86.718 ; Thyroid nodule E04.1 and Gastroesophageal reflux disease, esophagitis presence not specified K21.9 [facility] [address] [facility] [id number] [address] [place] [address] Oct, [facility] [address] [facility] [id number] [address] [place] [address] Sep, [facility] [address] [facility] [id number] [address] [place] [address] Aug, [facility] [address] [facility] [id number] [address] [place] [address] Aug, [facility] [address] [facility] [id number] [address] [place] [address] Aug, Acute pain of left shoulder M25.512 and Thyroid nodule E04.1 [place] [address] [place] [id number] [address] [place] [address] July, Superior glenoid labrum lesi on of left shoulder, subsequent encounter S43.432D [place] [address] [place] [id number] [address] [place] [address] Jun, History of DVT (deep vein th rombosis) Z86.718 [place] [address] [place] [id number] [place] [address] Jun, History of DVT (deep vein th rombosis) Z86.718 [place] [address] [place] [id number] [place] [address] Jun, Impingement syndrome, should er, left M75.42 [place] [address] [place] [id number] [place] [address] May, Subacromial bursitis of left shoulder joint M75.52 [place] [address] [address] May, [place] [address] [address] May, Hypertriglyceridemia E78.1 ; [facility]CI (current) use of anticoagulants Z79.01 and Excessive daytime sleepiness G47.19 [place] [address] [place] [id number] [address] [place] [address] May, History of DVT (deep vein th rombosis) Z86.718 ; Generalized anxiety disorder F41.1 ; Hypertriglyceridemia E78.1 ; 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 ; Subacromial bursitis of left shoulder joint M75.52 and Excessive daytime sleepiness G47.19 [place] [address] [place] [id number] [address] [place] [address] May, [place] [address] [place] [id number] [address] [place] [address] May, [facility]CI (current) use of a nticoagulants Z79.01 [facility] [address] [id number] [address] [place] [address] Apr, 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 [facility] [address] [id number] [address] [place] [address] Apr, [facility] (current) use of a nticoagulants Z79.01 [facility] [address] [id number] [address] [place] [address] Apr, [facility] (current) use of a nticoagulants Z79.01 [facility] [address] [id number] [address] [place] [address] Apr, [facility] [address] [id number] [address] [place] [address] Apr, [facility] (current) use of a nticoagulants Z79.01 [facility] [address] [id number] [address] [place] [address] 13 Apr, 2017 [facility] (current) use of a nticoagulants Z79.01 [facility] [address] [id number] [address] [place] [phone] Apr, 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 [facility] [address] [id number] [address] [place] [address] Apr, [facility] (current) use of a nticoagulants Z79.01 [facility] [address] [id number] [address] [place] [address] 07 Apr, 2017 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 [facility] [address] [id number] [address] [place] [address] 06 Apr, 2017 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 [facility] [address] [id number] [address] [place] [address] Mar, 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 [facility] [address] [id number] [address] [place] [address] Mar, [facility] [address] [id number] [address] [place] [address] Mar, [facility] (current) use of a nticoagulants Z79.01 [facility] [address] [id number] [address] [place] [id number] Jan, Dental examination Z01.20 [facility] [address] [id number] [address] [place] [id number] Jan, [facility] [address] [id number] [address] [place] [address] Jan, [facility] (current) use of a nticoagulants Z79.01 [facility] [address] [id number] [address] [place] [address] Jan, History of DVT (deep vein th rombosis) Z86.718 [facility] [address] [id number] [address] [place] [address] Jan, Generalized anxiety disorder F41.1 and Peripheral edema R60.9 [facility] [address] [id number] [address] [place] [address] Nov, History of DVT (deep vein th rombosis) Z86.718 [facility] [address] [id number] [address] [place] [address] Nov, [facility] (current) use of a nticoagulants Z79.01 [facility] [address] [id number] [address] [place] [address] Nov, Acute non-recurrent maxillar y sinusitis J01.00 [facility] [address] [id number] [address] [place] [address] Oct, 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 [facility] [address] [facility] [id number] [address] [place] [address] Oct, Personal history of venous t hrombosis and embolism Z86.718 [facility] [address] [facility] [id number] [address] [place] [address] Sep, [place] [address] [facility] [id number] [address] [place] [address] Sep, Personal history of venous t hrombosis and embolism Z86.718 [place] [address] [facility] [id number] [address] [place] [address] Sep, [facility] (current) use of a nticoagulants Z79.01 [place] [address] [facility] [id number] [address] [place] [address] Sep, 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 [place] [address] [facility] [id number] [address] [place] [address] Sep, Generalized anxiety disorder F41.1 and History of DVT (deep vein thrombosis) Z86.718 [place] [address] [facility] [id number] [address] [place] [address] Aug, History of DVT (deep vein th rombosis) Z86.718 ; Generalized anxiety disorder F41.1 ; [facility] (current) use of anticoagulants Z79.01 ; Pelvic pain R10.2 ; Hypertriglyceridemia E78.1 ; Excessive daytime sleepiness G47.19 ; Colon cancer screening Z12.11 ; Screening for breast cancer Z12.39 ; Peripheral edema R60.9 and Gastroesophageal reflux disease, esophagitis presence not specified K21.9 [place] [address] [facility] [id number] [address] [place] [address] Aug, [place] [address] [facility] [id number] [address] [place] [address] July, [place] [address] [place] [id number] [address] [place] [address] July, History of DVT (deep vein th rombosis) Z86.718 [facility] [address] [facility] [id number] [address] [place] [address] Jun, Generalized anxiety disorder F41.1 [facility] [address] [facility] [id number] [address] [place] [address] Jun, History of DVT (deep vein th rombosis) Z86.718 [facility] [address] [facility] [id number] [address] [place] [address] Jun, History of DVT (deep vein th rombosis) Z86.718 [place] [address] [facility] [id number] [address] [place] [address] Jun, History of DVT (deep vein th rombosis) Z86.718 [place] [address] [facility] [id number] [address] [place] [address] Jun, History of DVT (deep vein th rombosis) Z86.718 [facility] [address] [facility] [id number] [address] [place] [address] May, History of DVT (deep vein th rombosis) Z86.718 [facility] [address] [facility] [id number] [address] [place] [address] May, 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 [facility] [address] [facility] [id number] [address] [place] [address] May, 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 [facility] [address] [facility] [id number] [address] [place] [address] May, History of DVT (deep vein th rombosis) Z86.718 [facility] [address] [facility] [id number] [address] [place] [address] Apr, Bacterial conjunctivitis of left eye H10.9 and H/O motion sickness Z87.898 [facility] [address] [id number] [address] [place] [address] 24 Apr, 2016 History of DVT (deep vein th rombosis) Z86.718 [facility] [address] [id number] [address] [place] [address] 23 Apr, 2016 History of DVT (deep vein th rombosis) Z86.718 [facility] [address] [id number] [address] [place] [address] 15 Apr, 2016 History of DVT (deep vein th rombosis) Z86.718 [facility] [address] [id number] [address] [place] [address] 14 Apr, 2016 [facility] (current) use of a nticoagulants Z79.01 [place] [address] [id number] [address] [place] [address] Mar, [place] [address] [id number] [address] [place] [address] Mar, [facility] (current) use of a nticoagulants Z79.01 [place] [address] [id number] [address] [place] [address] Mar, Hypertriglyceridemia E78.1 a nd [facility] (current) use of anticoagulants Z79.01 [place] [address] [id number] [address] [place] [address] Feb, 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 [place] [address] [id number] [address] [place] [address] Feb, [facility] (current) use of a nticoagulants Z79.01 [place] [address] [id number] [address] [place] [address] Feb, 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 [place] [address] [id number] [address] [place] [address] Dec, [facility] [address] [id number] [address] [place] [address] Nov, [facility] [address] [facility] [id number] [address] [place] [address] Nov, History of DVT (deep vein th rombosis) Z86.718 ; Tremulousness R25.1 ; Generalized anxiety disorder F41.1 ; Peripheral edema R60.9 and Hypertriglyceridemia E78.1 [facility] [address] [id number] [address] [place] [address] Oct, History of DVT (deep vein th rombosis) Z86.718 [place] [address] [id number] [address] [place] [phone] Oct, [place] [address] [facility] [id number] [address] [place] [address] Sep, History of DVT (deep vein th rombosis) Z86.718 [facility] [address] [id number] [address] [place] [address] Sep, 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 [facility] [address] [id number] [address] [place] [address] July, [place] [address] [facility] [id number] [address] [place] [address] July, [facility] (current) use of a nticoagulants Z79.01 [facility] [address] [id number] [address] [place] [address] July, 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 [place] [address] [id number] [address] [place] [address] Jun, 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 [facility] [address] [id number] [address] [place] [address] Jun, Coccyx pain M53.3 ; Encounte r for therapeutic drug level monitoring Z51.81 and [facility]CI current use 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.01 [place] [address] [facility] [id number] [address] [place] [address] May, Abnormal mammogram R92.8 [facility] [address] [facility] [id number] [address] [place] [address] May, [facility] [address] [facility] [id number] [address] [place] [address] May, Acute vaginitis N76.0 and En counter for other screening for malignant neoplasm of breast Z12.39 [place] [address] [facility] [id number] [address] [place] [phone] Apr, [place] [address] [address] [facility] [id number] [address] [place] [phone] Apr, [place] [address] [facility] [id number] [address] [place] [phone] Apr, Peripheral edema R60.9 [place] [address] [facility] [id number] [address] [place] [phone] Apr, 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 [place] [address] [address] [facility] [id number] [address] [place] [phone] Apr, Peripheral edema R60.9 and L jose martin term (current) 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 Z79.01 [place] [address] [id number] [address] [place] [phone] Apr, [facility] (current) use of a nticoagulants Z79.01 [place] [address] [facility] [id number] [address] [place] [phone] Apr, [place] [address] [address] [facility] [id number] [address] [place] [phone] Apr, [facility] (current) use of a nticoagulants Z79.01 [place] [address] [id number] [address] [place] [phone] Apr, Peripheral edema R60.9 [place] [address] [id number] [address] [place] [phone] Mar, [facility] (current) use of a nticoagulants Z79.01 [place] [address] [id number] [address] [place] [phone] Mar, 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 and Hypertriglyceridemia E78.1 [place] [address] [id number] [address] [place] [phone] Mar, 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 [place] [address] [id number] [address] [place] [phone] Mar, [facility] (current) use of a nticoagulants Z79.01 [place] [address] [id number] [address] [place] [phone] Mar, [place] [address] [id number] [address] [place] [phone] Mar, [facility] (current) use of a nticoagulants Z79.01 ; Hypertriglyceridemia E78.1 ; Personal history of venous thrombosis and embolism Z86.718 and Lump R22.9 [place] [address] [id number] [address] [place] [address] Mar, Personal history of venous t hrombosis and embolism Z86.718 [place] [address] [id number] [address] [place] [address] Mar, Personal history of venous t hrombosis and embolism Z86.718 [place] [address] [id number] [address] [place] [address] Mar, [place] [address] [id number] [address] [place] [address] Dec, Personal history of venous t hrombosis and embolism Z86.718 [facility] [address] [id number] [address] [place] [address] Dec, Personal history of venous t hrombosis and embolism V12.51 [facility] [address] [id number] [address] [place] [address] Nov, Personal history of venous t hrombosis and embolism V12.51 [facility] [address] [id number] [address] [place] [address] Nov, Personal history of venous t hrombosis and embolism V12.51 [facility] [address] [id number] [address] [place] [address] 17 Nov, 2014 Personal history of venous t hrombosis and embolism V12.51 [facility] [address] [id number] [address] [place] [address] Nov, Personal history of venous t hrombosis and embolism V12.51 [facility] [address] [id number] [address] [place] [address] Nov, [facility] [address] [id number] [address] [place] [address] Oct, Dysuria 788.1 [facility] [address] [id number] [address] [place] [address] Oct, Personal history of venous t hrombosis and embolism V12.51 [facility] [address] [id number] [address] [place] [address] Oct, [facility] [address] [id number] [address] [place] [address] Oct, Personal history of venous t hrombosis and embolism V12.51 [facility] [address] [id number] [address] [place] [address] Sep, Personal history of venous t hrombosis and embolism V12.51 [facility] [address] [id number] [address] [place] [address] 03 Sep, 2014 Personal history of venous t hrombosis and embolism V12.51 [facility] [address] [id number] [address] [place] [phone] 19 Aug, 2014 Personal history of venous t hrombosis and embolism V12.51 [facility] [address] [id number] [address] [place] [address] 18 Aug, 2014 Personal history of venous t hrombosis and embolism V12.51 [facility] [address] [id number] [address] [place] [address] 15 Aug, 2014 Personal history of venous t hrombosis and embolism V12.51 [facility] [address] [id number] [address] [place] [address] July, Generalized anxiety disorder 300.02 ; Abdominal pain, left lower quadrant 789.04 and Personal history of venous thrombosis and embolism V12.51 [facility] [address] [id number] [address] [place] [address] 14 Jun, 2014 [facility] [address] [id number] [address] [place] [address] Jun, [facility] [address] [id number] [address] [place] [address] May, [facility] [address] [id number] [address] [place] [address] May, [facility] [address] [id number] [address] [place] [address] 17 May, 2014 [facility] [address] [id number] [address] [place] [address] 17 May, 2014 [facility] [address] [id number] [address] [place] [phone] May, [facility] [address] [id number] [address] [place] [address] May, [facility] [address] [id number] [address] [place] [address], [place] [address] May, [facility] [address] [id number] [address] [place] [address], [place] [address] May, [facility] [address] [id number] [address] [place] [address], [place] [address] Apr, [facility] [address] [id number] [address] [place] [address], [place] [address] Apr, [facility] [address] [id number] [address] [place] [address], [place] [address] Apr, [facility] [address] [id number] [address] [place] [address], [place] [address] Apr, [facility] [address] [id number] [address] [place] [address], [place] [address] Apr, [facility] [address] [id number] [address] [place] [address], [place] [address] Mar, [facility] [address] [id number] [address] [place] [address], [place] [address] Mar, [facility] [address] [id number] [address] [place] [address], [place] [address] Mar, [facility] [address] [id number] [address] [place] [address], [place] [address] Mar, [facility] [address] [id number] [address] [place] [address], [place] [address] Mar, [facility] [address] [id number] [address] [place] [address], [place] [address] Mar, [facility] [address] [id number] [address] [place] [address], [place] [address] Feb, [facility] [address] [id number] [address] [place] [address], [place] [address] Feb, [facility] [address] [id number] [address] [place] [address], [place] [address] Feb, [facility] [address] [id number] [address] [place] [address], [place] [address] Feb, [facility] [address] [id number] [address] [place] [address], [place] [address] Feb, [facility] [address] [id number] [address] [place] [address], [place] [address] Feb, [facility] [address] [id number] [address] [place] [address], [place] [address] Feb, [facility] [address] [id number] [address] [place] [address], [place] [address] Feb, [facility] [address] [id number] [address] [place] [address], [place] [address] Feb, [facility] [address] [id number] [address] [place] [address], [place] [address] Feb, [facility] [address] [id number] [address] [place] [address], [place] [address] Jan, [facility] [address] [id number] [address] [place] [address], [place] [address] Jan, [facility] [address] [id number] [address] [place] [address], [place] [address] Jan, [facility] [address] [id number] [address] [place] [address], [place] [address] Jan, [facility] [address] [id number] [address] [place] [address], [place] [address] Jan, [facility] [address] [id number] [address] [place] [address], [place] [address] Jan, [facility] [address] [id number] [address] [place] [address], [place] [address] Jan, [facility] [address] [id number] [address] [place] [address], [place] [address] Jan, [facility] [address] [id number] [address] [place] [address] Jan, [facility] [address] [id number] [address] [place] [address], [place] [address] Jan, [facility] [address] [id number] [address] [place] [address], [place] [address] Dec, [facility] [address] [id number] [address] [place] [address], [place] [address] Dec, [facility] [address] [id number] [address] [place] [address], [place] [address] Dec, [facility] [address] [id number] [address] [place] [address], [place] [address] Dec, [facility] [address] [id number] [address] [place] [address], [place] [address] Dec, [facility] [address] [id number] [address] [place] [address], [place] [address] Dec, [facility] [address] [id number] [address] [place] [address], [place] [address] Dec, [facility] [address] [id number] [address] [place] [address] Dec, [facility] [address] [id number] [address] [place] [address], [place] [address] Dec, [facility] [address] [id number] [address] [place] [address], [place] [address] Dec, [facility] [address] [id number] [address] [place] [address] Dec, [facility] [address] [id number] [address] [place] [address], [place] [address] Dec, [facility] [address] [id number] [address] [place] [address] Dec, [facility] [address] [id number] [address] [place] [address], [place] [address] Dec, [facility] [address] [id number] [facility] [place] [address] Dec, [facility] [address] [id number] [facility] [place] [address] 30 Sep, 2013 [facility] [address] [id number] [facility] [place] [address] 30 Nov, 2013 [facility] [address] [id number] [address] [place] [address], [place] [address] 26 Nov, 2013 [facility] [address] [id number] [address] [place] [address], [place] [address] 26 Nov, 2013 [facility] [address] [id number] [address] [place] [address], [place] [address] 24 Nov, 2013 [facility] [address] [id number] [address] [place] [address], [place] [address] 24 Nov, 2013 [facility] [address] [id number] [address] [place] [address], [place] [address] 23 Nov, 2013 [facility] [address] [id number] [address] [place] [address], [place] [address] 23 Nov, 2013 [facility] [address] [id number] [address] [place] [address], [place] [address] 18 Nov, 2013 [facility] [address] [id number] [address] [place] [address], [place] [address] 18 Nov, 2013 [facility] [address] [id number] [address] [place] [address], [place] [address] 17 Nov, 2013 [facility] [address] [id number] [address] [place] [address], [place] [address] 17 Sep, 2013 [facility] [address] [id number] [address] [place] [address], [place] [address] 11 Nov, 2013 [facility] [address] [id number] [address] [place] [address], [place] [address] 11 Nov, 2013 [facility] [address] [id number] [address] [place] [address], [place] [address] 10 Sep, 2013 [facility] [address] [id number] [facility] [place] [address] 10 Nov, 2013 [facility] [address] [id number] [facility] [place] [address] 08 Nov, 2013 [facility] [address] [id number] [facility] [place] [address] 08 Nov, 2013 [facility] [address] [id number] [facility] [place] [address] Sep, [facility] [address] [id number] [facility] [place] [address] Sep, [facility] [address] [id number] [address] [place] [address], [place] [address] Sep, [facility] [address] [id number] [address] [place] [address], [place] [address] Sep, [facility] [address] [id number] [address] [place] [address], [place] [address] Sep, [facility] [address] [id number] [address] [place] [address], [place] [address] Sep, [facility] [address] [id number] [address] [place] [address], [place] [address] Aug, [facility] [address] [id number] [address] [place] [address], [place] [address] Aug, [facility] [address] [id number] [address] [place] [address], [place] [address] Aug, [facility] [address] [id number] [address] [place] [address], [place] [address] Aug, [facility] [address] [id number] [address] [place] [address], [place] [address] 24 Aug, 2013 [facility] [address] [id number] [address] [place] [address], [place] [address] Aug, [facility] [address] [id number] [address] [place] [address], [place] [address] 11 Aug, 2013 [facility] [address] [id number] [address] [place] [address], [place] [address] Aug, [facility] [address] [id number] [address] [place] [address], [place] [address] Aug, [facility] [address] [id number] [address] [place] [address], [place] [address] Aug, [facility] [address] [id number] [address] [place] [address], [place] [address] Aug, [facility] [address] [id number] [address] [place] [address], [place] [address] July, [facility] [address] [id number] [address] [place] [address], [place] [address] July, [facility] [address] [id number] [address] [place] [address], [place] [address] Jun, [facility] [address] [id number] [address] [place] [address], [place] [address] Jun, [facility] [address] [id number] [address] [place] [address], [place] [address] Jun, [facility] [address] [id number] [address] [place] [address], [place] [address] Jun, [facility] [address] [id number] [address] [place] [address], [place] [address] Jun, [facility] [address] [id number] [address] [place] [address], [place] [address] Jun, [facility] [address] [id number] [address] [place] [address], [place] [address] 15 Jun, 2013 [facility] [address] [id number] [address] [place] [address], [place] [address] Jun, [facility] [address] [id number] [address] [place] [address], [place] [address] Jun, [facility] [address] [id number] [facility] [place] [address] Jun, [facility] [address] [id number] [facility] [place] [address] Jun, [facility] [address] [id number] [facility] [place] [address] Jun, [facility] [address] [id number] [facility] [place] [address] May, [facility] [address] [id number] [facility] [place] [address] May, [facility] [address] [id number] [address] [place] [address], [place] [address] May, [facility] [address] [id number] [address] [place] [address], [place] [address] May, [facility] [address] [id number] [address] [place] [address], [place] [address] May, [facility] [address] [id number] [address] [place] [address], [place] [address] May, [facility] [address] [id number] [address] [place] [address], [place] [address] May, [facility] [address] [id number] [address] [place] [address], [place] [address] May, [facility] [address] [id number] [address] [place] [address], [place] [address] May, [facility] [address] [id number] [address] [place] [address], [place] [address] May, [facility] [address] [id number] [address] [place] [address], [place] [address] May, [facility] [address] [id number] [address] [place] [address], [place] [address] May, [facility] [address] [id number] [address] [place] [address], [place] [address] Apr, [facility] [address] [id number] [address] [place] [address], [place] [address] Apr, [facility] [address] [id number] [address] [place] [address], [place] [address] Apr, [facility] [address] [id number] [address] [place] [address], [place] [address] Apr, [facility] [address] [id number] [address] [place] [address], [place] [address] Apr, [facility] [address] [id number] [address] [place] [address], [place] [address] Apr, [facility] [address] [id number] [address] [place] [address], [place] [address] Apr, [facility] [address] [id number] [address] [place] [address], [place] [address] Apr, [facility] [address] [id number] [address] [place] [address], [place] [address] Apr, [facility] [address] [id number] [address] [place] [address], [place] [address] Apr, [facility] [address] [id number] [address] [place] [address], [place] [address] Apr, [facility] [address] [id number] [address] [place] [address], [place] [address] Apr, [facility] [address] [id number] [address] [place] [address], [place] [address] Apr, [facility] [address] [id number] [address] [place] [address], [place] [address] Apr, [facility] [address] [id number] [address] [place] [address], [place] [address] Apr, [facility] [address] [id number] [address] [place] [address], [place] [address] Apr, [facility] [address] [id number] [address] [place] [address], [place] [address] Apr, [facility] [address] [id number] [address] [place] [address], [place] [address] Jan, [facility] [address] [id number] [address] [place] [address], [place] [address] Jan, [facility] [address] [id number] [address] [place] [address], [place] [address] Jan, [facility] [address] [id number] [address] [place] [address], [place] [address] Jan, [facility] [address] [id number] [address] [place] [address], [place] [address] Jan, [facility] [address] [id number] [address] [place] [address], [place] [address] Jan, [facility] [address] [id number] [address] [place] [address], [place] [address] Jan, [facility] [address] [id number] [address] [place] [address], [place] [address] Dec, [facility] [address] [id number] [address] [place] [address] Dec, [facility] [address] [id number] [address] [place] [address] Dec, [facility] [address] [id number] [address] [place] [id number] 10 Nov, 2012 [facility] [address] [id number] [address] [place] [address], [place] [address] 10 Nov, 2012 [facility] [address] [id number] [address] [place] [id number] 05 Nov, 2012 [facility] [address] [id number] [address] [place] [id number] 04 Nov, 2012 [facility] [address] [id number] [address] [place] [address], [place] [address] Oct, [facility] [address] [id number] [address] [place] [address], [place] [address] Oct, [facility] [address] [id number] [address] [place] [address], [place] [address] Oct, [facility] [address] [id number] [address] [place] [address], [place] [address] Oct, [facility] [address] [id number] [address] [place] [address], [place] [address] Oct, [facility] [address] [id number] [address] [place] [address], [place] [address] Sep, [facility] [address] [id number] [address] [place] [address], [place] [address] Sep, [facility] [address] [id number] [address] [place] [address], [place] [address] Sep, [facility] [address] [id number] [address] [place] [address], [place] [address] Sep, [facility] [address] [id number] [address] [place] [address], [place] [address] Sep, [facility] [address] [id number] [address] [place] [address], [place] [address] Sep, [facility] [address] [id number] [address] [place] [address], [place] [address] Sep, [facility] [address] [id number] [address] [place] [address], [place] [address] Aug, [facility] [address] [id number] [address] [place] [address], [place] [address] Aug, [facility] [address] [id number] [address] [place] [address], [place] [address] July, [facility] [address] [id number] [address] [place] [address], [place] [address] Jun, [facility] [address] [id number] [address] [place] [address], [place] [address] Jun, [facility] [address] [id number] [address] [place] [address], [place] [address] Jun, [facility] [address] [id number] [address] [place] [address], [place] [address] Apr, [facility] [address] [id number] [address] [place] [address], [place] [address] Apr, [facility] [address] [id number] [address] [place] [address], [place] [address] Apr, [facility] [address] [id number] [address] [place] [address], [place] [address] Mar, [facility] [address] [id number] [address] [place] [address], [place] [address] Mar, [facility] [address] [id number] [address] [place] [address], [place] [address] Mar, [facility] [address] [id number] [address] [place] [address], [place] [address] Mar, [facility] [address] [id number] [address] [place] [address], [place] [address] Mar, [facility] [address] [id number] [address] [place] [address], [place] [address] 14 Feb, 2012 [facility] [address] [id number] [address] [place] [address], [place] [address] 14 Feb, 2012 [facility] [address] [id number] [address] [place] [address], [place] [address] Jan, [facility] [address] [id number] [address] [place] [address], [place] [address] Jan, [facility] [address] [id number] [address] [place] [address], [place] [address] 13 Jan, 2012 [facility] [address] [id number] [address] [place] [address] Jan, [facility] [address] [id number] [address] [place] [address], [place] [address] Jan, [facility] [address] [id number] [address] [place] [address] Jan, [facility] [address] [id number] [address] [place] [address], [place] [address] Jan, [facility] [address] [id number] [place] [address], [place] [address] Dec, [facility] [address] [id number] [address] [place] [address], [place] [address] Dec, [facility] [address] [id number] [address] [place] [address], [place] [address] Dec, [facility] [address] [id number] [address] [place] [address], [place] [address] Dec, [facility] [address] [id number] [address] [place] [address], [place] [address] Dec, [facility] [address] [id number] [address] [place] [address], [place] [address] Dec, [facility] [address] [id number] [address] [place] [address], [place] [address] Dec, [facility] [address] [id number] [address] [place] [address], [place] [address] Dec, [facility] [address] [id number] [address] [place] [id number] Dec, [facility] [address] [id number] [address] [place] [address], [place] [address] Dec, [facility] [address] [id number] [address] [place] [address], [place] [address] Oct, [facility] [address] [id number] [address] [place] [address], [place] [address] Oct, [facility] [address] [id number] [address] [place] [address], [place] [address] 14 Aug, 2011 [facility] [address] [id number] [address] [place] [address], [place] [address] 14 Aug, 2011 [facility] [address] [id number] [address] [place] [address], [place] [address] July, [facility] [address] [id number] [address] [place] [address], [place] [address] 17 Jun, 2011 [facility] [address] [id number] [address] [place] [address], [place] [address] Jun, [facility] [address] [id number] [address] [place] [address], [place] [address] May, [facility] [address] [id number] [address] [place] [address], [place] [address] Apr, [facility] [address] [id number] [address] [place] [address], [place] [address] Apr, [facility] [address] [id number] [address] [place] [address], [place] [address] Mar, [facility] [address] [id number] [address] [place] [address], [place] [address] Mar, [facility] [address] [id number] [address] [place] [address], [place] [address] 19 Feb, 2011 [facility] [address] [id number] [address] [place] [address], [place] [address] 15 Feb, 2011 [facility] [address] [id number] [address] [place] [address], [place] [address] 13 Feb, 2011 [facility] [address] [id number] [address] [place] [address], [place] [address] 13 Feb, 2011 [facility] [address] [id number] [address] [place] [address], [place] [address] 11 Jan, 2011 [facility] [address] [id number] [address] [place] [address], [place] [address] Dec, [facility] [address] [id number] [address] [place] [address] Feb, [facility] [address] [id number] [address] [place] [address] Feb, [facility] [address] [id number] [address] [place] [address] Feb, [facility] [address] [id number] [address] [place] [address] Feb, [facility] [address] [id number] [address] [place] [phone] Dec, [facility] [address] [id number] [address] [place] [address] Dec, [facility] [address] [id number] [address] [place] [address] Oct, [facility] [address] [id number] [address] [place] [id number] Jun, [facility] [address] [id number] [address] [place] [phone] Feb, [facility] [address] [id number] [address] [place] [address] Feb, [facility] [address] [id number] [address] [place] [phone] Feb, [facility] [address] [id number] [address] [place] [id number] Dec, IMMUNIZATIONS No Known Immunizations SOCIAL HISTORY [...]
--- OUTSIDE RECORDS SUMMARY | 2019-10-19 12:23 | XMS REPORT ---
Author Author Mary Jane Donohue Organization [facility] Address [address] [place] [address] Care Team Providers Care Discovery Guide Name Role Phone JAMI Donohue Unavailable PROBLEMS Type Condition ICD9-CM Code FZF12-NS Code Onset Dates Condition S tatus SNOMED Code Problem Thyroid follicular adenoma D34 Act phylicia 866083983 Problem History of DVT (deep vein thrombosis) Z86.718 Active 897822841 Problem Factor V Leiden D68.51 Active 3070 71715 Problem [facility] (current) use of anticoagulants Z79.01 Active 949878800 Problem Hypertriglyceridemia E78.1 Active 914891906 Problem 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 Active 677935807 Problem Pelvic pain R10.2 Active 97002134 Problem Peripheral edema R60.9 Active 271 997984 Problem Moderate episode of recurrent major depressive disorder F33.1 Active 202839557 Problem Presence of IVC filter Z95.828 Active 539495554 Problem Vitamin D deficiency E55.9 Active 41806403 Problem Generalized anxiety disorder F41.1 A ctive 553200860 Problem Excessive daytime sleepiness G47.19 A ctive 358516365839 Problem Gastroesophageal reflux disease, esophagitis pre sence not specified K21.9 Active 981805246 Problem Thyroid nodule E04.1 Active 85155 5005 Problem Morbid obesity E66.01 Active 35155 6002 ALLERGIES No Information ENCOUNTERS Encounter Location Date Diagnosis [facility] [address] [facility] [id number] [address] [place] [phone] July, [facility] [address] [facility] [id number] [address] [place] [phone] 28 Jun, 2019 [facility] [address] [facility] [id number] [address] [place] [phone] 15 Jun, 2019 Back pain with history of sp inal surgery M54.9 [facility] [address] [id number] [address] [place] [phone] 12 Apr, 2019 Back pain with history of sp inal surgery M54.9 [facility] [address] [id number] [address] [place] [phone] 11 Apr, 2019 [facility] [address] [id number] [address] [place] [phone] 10 Apr, 2019 Gastroenteritis K52.9 ; Back pain with history of spinal surgery M54.9 ; Dermatofibroma of lower leg, unspecified laterality D23.70 and Morbid obesity E66.01 [place] [address] [id number] [address] [place] [phone] Mar, [place] [address] [id number] [address] [place] [phone] Jan, [place] [address] [facility] [id number] [address] [place] [phone] Jan, [place] [address] [id number] [address] [place] [phone] Dec, Encounter for weight managem ent Z76.89 [place] [address] [facility] [id number] [address] [place] [phone] Dec, Encounter for weight managem ent Z76.89 and Screening mammogram, encounter for Z12.31 [place] [address] [facility] [id number] [address] [place] [phone] Nov, Encounter for weight managem ent Z76.89 [place] [address] [id number] [address] [place] [phone] Nov, Thyroid nodule E04.1 [place] [address] [facility] [id number] [address] [place] [phone] Nov, Thyroid nodule E04.1 [place] [address] [facility] [id number] [address] [place] [phone] Nov, Thyroid nodule E04.1 [place] [address] [facility] [id number] [address] [place] [phone] Oct, Syncope, unspecified syncope type R55 and Encounter for weight management Z76.89 [facility] [address] [facility] [id number] [address] [place] [phone] Oct, Morbid obesity E66.01 [facility] [address] [facility] [id number] [address] [place] [phone] Oct, Hypertriglyceridemia E78.1 [facility] [address] [facility] [id number] [address] [place] [phone] Oct, [facility] [address] [facility] [id number] [address] [place] [phone] Oct, Hypertriglyceridemia E78.1 [facility] [address] [facility] [id number] [address] [place] [phone] Sep, Hypertriglyceridemia E78.1 a nd Vitamin D deficiency E55.9 [facility] [address] [facility] [id number] [address] [place] [phone] Sep, [facility] [address] [facility] [id number] [address] [place] [phone] Sep, Morbid obesity E66.01 ; Mode rate episode of recurrent major depressive disorder F33.1 ; Hypertriglyceridemia E78.1 and Vitamin D deficiency E55.9 [facility] [address] [facility] [id number] [address] [place] [phone] Aug, [facility] [address] [facility] [id number] [address] [place] [phone] July, [facility] [address] [facility] [id number] [address] [place] [phone] July, [facility] [address] [facility] [id number] [address] [place] [phone] Jun, [facility] [address] [facility] [id number] [address] [place] [phone] Jun, [facility] [address] [id number] [address] [place] [address] Jun, Closed compression fracture of L3 lumbar vertebra with routine healing, subsequent encounter S32.030D and Drug-induced constipation K59.03 [facility] [address] [id number] [address] [place] [phone] Jun, [facility] [address] [facility] [id number] [address] [place] [phone] Jun, [facility] [address] [facility] [id number] [address] [place] [phone] Apr, [facility] [address] [facility] [id number] [place] [address] Apr, Morbid obesity E66.01 [facility] [address] [facility] [id number] [address] [place] [address] Apr, Morbid obesity E66.01 ; Hype rtriglyceridemia E78.1 ; Gastroesophageal reflux disease, esophagitis presence not specified K21.9 and Joint pain M25.50 [facility] [address] [facility] [id number] [address] [place] [phone] Feb, [facility] [address] [facility] [id number] [address] [place] [phone] Feb, [facility] [address] [facility] [id number] [address] [place] [phone] Jan, Acute bacterial conjunctivit is H10.30 [facility] [address] [facility] [id number] [address] [place] [phone] Dec, [facility] [address] [facility] [id number] [address] [place] [phone] Dec, [facility] [address] [facility] [id number] [address] [place] [phone] Nov, [facility] [address] [facility] [id number] [address] [place] [phone] 07 Sep, 2018 Obstructive sleep apnea G47. 33 ; Morbid obesity E66.01 and Gastroesophageal reflux disease, esophagitis presence not specified K21.9 [facility] [address] [id number] [address] [place] [id number] 06 Nov, 2017 Encounter for examination of eyes and vision without abnormal findings Z01.00 [facility] [address] [facility] [id number] [address] [place] [phone] Oct, Thyroid nodule E04.1 and Scr eening for breast cancer Z12.31 [facility] [address] [id number] [address] [place] [address] 23 Oct, 2017 History of DVT (deep vein th rombosis) Z86.718 ; Thyroid nodule E04.1 and Gastroesophageal reflux disease, esophagitis presence not specified K21.9 [place] [address] [facility] [id number] [address] [place] [address] Oct, [place] [address] [place] [id number] [address] [place] [phone] Sep, [place] [address] [facility] [id number] [address] [place] [phone] Aug, [place] [address] [place] [id number] [place] [phone] Aug, [place] [address] [place] [id number] [place] [phone] Aug, Acute pain of left shoulder M25.512 and Thyroid nodule E04.1 [place] [address] [facility] [id number] [address] [place] [address] July, Superior glenoid labrum lesi on of left shoulder, subsequent encounter S43.432D [place] [address] [place] [id number] [address] [place] [address] Jun, History of DVT (deep vein th rombosis) Z86.718 [place] [address] [facility] [id number] [address] [place] [address] Jun, History of DVT (deep vein th rombosis) Z86.718 [place] [address] [id number] [address] [place] [address] Jun, Impingement syndrome, should er, left M75.42 [facility] [address] [id number] [address] [place] [phone] May, Subacromial bursitis of left shoulder joint M75.52 [place] [address] [id number] [address] [place] [phone] May, [place] [address] [id number] [address] [place] [address] May, Hypertriglyceridemia E78.1 ; [facility]CI (current) use of anticoagulants Z79.01 and Excessive daytime sleepiness G47.19 [place] [address] [facility] [id number] [address] [place] [address] May, History of DVT (deep vein th rombosis) Z86.718 ; Generalized anxiety disorder F41.1 ; Hypertriglyceridemia E78.1 ; [facility]CI (current) use of anticoagulants Z79.01 ; Subacromial bursitis of left shoulder joint M75.52 and Excessive daytime sleepiness G47.19 [place] [address] [id number] [address] [place] [address] May, [place] [address] [facility] [id number] [address] [place] [phone] May, 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 [place] [address] [id number] [address] [place] [address] Apr, [facility] (current) use of a nticoagulants Z79.01 [place] [address] [id number] [address] [place] [address] Apr, [facility] (current) use of a nticoagulants Z79.01 [place] [address] [id number] [address] [place] [phone] Apr, 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 [facility] [address] [id number] [address] [place] [phone] Apr, [facility] [address] [id number] [address] [place] [phone] Apr, 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 [facility] [address] [id number] [address] [place] [address] Apr, [facility] (current) use of a nticoagulants Z79.01 [facility] [address] [id number] [address] [place] [address] Apr, [facility] (current) use of a nticoagulants Z79.01 [facility] [address] [id number] [address] [place] [address] Apr, [facility] (current) use of a nticoagulants Z79.01 [facility] [address] [id number] [address] [place] [address] Apr, [facility] (current) use of a nticoagulants Z79.01 [facility] [address] [id number] [address] [place] [phone] Apr, [facility] (current) use of a nticoagulants Z79.01 [facility] [address] [id number] [address] [place] [phone] Mar, [facility] (current) use of a nticoagulants Z79.01 [facility] [address] [id number] [address] [place] [phone] Mar, [facility] [address] [id number] [address] [place] [phone] Mar, [facility] (current) use of a nticoagulants Z79.01 [facility] [address] [id number] [address] [place] [id number] Jan, Dental examination Z01.20 [facility] [address] [id number] [address] [place] [address] [id number] Jan, [facility] [address] [id number] [address] [place] [phone] Jan, [facility] (current) use of a nticoagulants Z79.01 [facility] [address] [id number] [address] [place] [phone] Jan, History of DVT (deep vein th rombosis) Z86.718 [facility] [address] [id number] [address] [place] [address] Jan, Generalized anxiety disorder F41.1 and Peripheral edema R60.9 [place] [address] [id number] [address] [place] [address] Nov, History of DVT (deep vein th rombosis) Z86.718 [facility] [address] [id number] [address] [place] [phone] Nov, 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 [facility] [address] [id number] [address] [place] [address] Nov, Acute non-recurrent maxillar y sinusitis J01.00 [facility] [address] [id number] [address] [place] [address] Oct, [facility] (current) use of a nticoagulants Z79.01 [facility] [address] [id number] [address] [place] [address] Oct, Personal history of venous t hrombosis and embolism Z86.718 [facility] [address] [id number] [address] [place] [address] Sep, [facility] [address] [id number] [address] [place] [address] Sep, Personal history of venous t hrombosis and embolism Z86.718 [place] [address] [facility] [id number] [address] [place] [address] Sep, 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 [facility] [address] [facility] [id number] [address] [place] [address] Sep, [facility] (current) use of a nticoagulants Z79.01 [place] [address] [facility] [id number] [address] [place] [address] Sep, Generalized anxiety disorder F41.1 and History of DVT (deep vein thrombosis) Z86.718 [place] [address] [facility] [id number] [address] [place] [address] Aug, History of DVT (deep vein th rombosis) Z86.718 ; Generalized anxiety disorder F41.1 ; 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 ; Pelvic pain R10.2 ; Hypertriglyceridemia E78.1 ; Excessive daytime sleepiness G47.19 ; Colon cancer screening Z12.11 ; Screening for breast cancer Z12.39 ; Peripheral edema R60.9 and Gastroesophageal reflux disease, esophagitis presence not specified K21.9 [place] [address] [place] [id number] [address] [place] [phone] Aug, [place] [address] [place] [id number] [address] [place] [address] July, [place] [address] [place] [id number] [address] [place] [phone] July, History of DVT (deep vein th rombosis) Z86.718 [place] [address] [facility] [id number] [address] [place] [address] Jun, Generalized anxiety disorder F41.1 [place] [address] [facility] [id number] [address] [place] [address] Jun, History of DVT (deep vein th rombosis) Z86.718 [place] [address] [place] [id number] [address] [place] [address] Jun, History of DVT (deep vein th rombosis) Z86.718 [facility] [address] [id number] [address] [place] [address] Jun, History of DVT (deep vein th rombosis) Z86.718 [facility] [address] [facility] [id number] [address] [place] [address] Jun, History of DVT (deep vein th rombosis) Z86.718 [facility] [address] [facility] [id number] [address] [place] [address] May, History of DVT (deep vein th rombosis) Z86.718 [place] [address] [facility] [id number] [address] [place] [address] May, 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 [place] [address] [place] [id number] [address] [place] [address] May, [facility] (current) use of a nticoagulants Z79.01 [facility] [address] [facility] [id number] [address] [place] [address] May, History of DVT (deep vein th rombosis) Z86.718 [facility] [address] [facility] [id number] [address] [place] [address] Apr, Bacterial conjunctivitis of left eye H10.9 and H/O motion sickness Z87.898 [facility] [address] [facility] [id number] [address] [place] [address] Apr, History of DVT (deep vein th rombosis) Z86.718 [place] [address] [facility] [id number] [address] [place] [address] Apr, History of DVT (deep vein th rombosis) Z86.718 [place] [address] [facility] [id number] [address] [place] [phone] Apr, History of DVT (deep vein th rombosis) Z86.718 [facility] [address] [id number] [address] [place] [phone] 14 Apr, 2016 [facility] (current) use of a nticoagulants Z79.01 [facility] [address] [id number] [address] [place] [phone] Mar, [facility] [address] [id number] [address] [place] [address] Mar, 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 [place] [address] [id number] [address] [place] [address] Mar, Hypertriglyceridemia E78.1 a nd 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 [place] [address] [id number] [address] [place] [address] Feb, 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 [place] [address] [id number] [address] [place] [address] Feb, [facility] (current) use of a nticoagulants Z79.01 [place] [address] [id number] [address] [place] [phone] Feb, [facility] (current) use of a nticoagulants Z79.01 [place] [address] [id number] [address] [place] [address] Dec, [facility] [address] [id number] [address] [place] [phone] Nov, [place] [address] [id number] [address] [place] [address] 13 Nov, 2015 History of DVT (deep vein th rombosis) Z86.718 ; Tremulousness R25.1 ; Generalized anxiety disorder F41.1 ; Peripheral edema R60.9 and Hypertriglyceridemia E78.1 [place] [address] [id number] [address] [place] [phone] Oct, History of DVT (deep vein th rombosis) Z86.718 [facility] [address] [id number] [address] [place] [address] Oct, [facility] [address] [id number] [address] [place] [phone] Sep, History of DVT (deep vein th rombosis) Z86.718 [facility] [address] [id number] [address] [place] [phone] Sep, 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 [place] [address] [id number] [address] [place] [address] July, [place] [address] [id number] [address] [place] [address] July, [facility] (current) use of a nticoagulants Z79.01 [place] [address] [facility] [id number] [address] [place] [address] July, [facility] (current) use of a nticoagulants Z79.01 [place] [address] [id number] [address] [place] [address] Jun, 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 [facility] [address] [id number] [address] [place] [address] Jun, Coccyx pain M53.3 ; Encounte r for therapeutic drug level monitoring Z51.81 and [facility] current use 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.01 [facility] [address] [id number] [address] [place] [phone] May, Abnormal mammogram R92.8 [facility] [address] [facility] [id number] [address] [place] [phone] May, [facility] [address] [facility] [id number] [address] [place] [phone] May, Acute vaginitis N76.0 and En counter for other screening for malignant neoplasm of breast Z12.39 [facility] [address] [id number] [address] [place] [phone] Apr, [facility] [address] [facility] [id number] [address] [place] [phone] Apr, [facility] [address] [facility] [id number] [address] [place] [phone] Apr, Peripheral edema R60.9 [facility] [address] [id number] [address] [place] [phone] Apr, [facility] (current) use of a nticoagulants Z79.01 [place] [address] [facility] [id number] [address] [place] [phone] Apr, Peripheral edema R60.9 and L jose martin term (current) 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 Z79.01 [place] [address] [id number] [address] [place] [phone] Apr, 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 [place] [address] [facility] [id number] [address] [place] [phone] Apr, [facility] [address] [facility] [id number] [address] [place] [phone] Apr, [facility] (current) use of a nticoagulants Z79.01 [place] [address] [id number] [address] [place] [phone] Apr, Peripheral edema R60.9 [facility] [address] [id number] [address] [place] [phone] Mar, 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 [facility] [address] [id number] [address] [place] [phone] Mar, 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 and Hypertriglyceridemia E78.1 [facility] [address] [id number] [address] [place] [phone] Mar, [facility] (current) use of a nticoagulants Z79.01 [facility] [address] [id number] [address] [place] [phone] Mar, 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 [place] [address] [id number] [address] [place] [phone] Mar, [place] [address] [id number] [address] [place] [address] Mar, [facility] (current) use of a nticoagulants Z79.01 ; Hypertriglyceridemia E78.1 ; Personal history of venous thrombosis and embolism Z86.718 and Lump R22.9 [facility] [address] [id number] [address] [place] [address] Mar, Personal history of venous t hrombosis and embolism Z86.718 [place] [address] [id number] [address] [place] [address] Mar, Personal history of venous t hrombosis and embolism Z86.718 [place] [address] [id number] [address] [place] [address] Mar, [facility] [address] [id number] [address] [place] [address] Dec, Personal history of venous t hrombosis and embolism Z86.718 [place] [address] [id number] [address] [place] [address] Dec, Personal history of venous t hrombosis and embolism V12.51 [place] [address] [id number] [address] [place] [address] Nov, Personal history of venous t hrombosis and embolism V12.51 [place] [address] [id number] [address] [place] [address] Nov, Personal history of venous t hrombosis and embolism V12.51 [facility] [address] [id number] [address] [place] [address] 17 Nov, 2014 Personal history of venous t hrombosis and embolism V12.51 [facility] [address] [id number] [address] [place] [address] Nov, Personal history of venous t hrombosis and embolism V12.51 [facility] [address] [id number] [address] [place] [address] Nov, [facility] [address] [id number] [address] [place] [address] Oct, Dysuria 788.1 [facility] [address] [id number] [address] [place] [address] Oct, Personal history of venous t hrombosis and embolism V12.51 [facility] [address] [id number] [address] [place] [address] Oct, [facility] [address] [id number] [address] [place] [address] Oct, Personal history of venous t hrombosis and embolism V12.51 [facility] [address] [id number] [address] [place] [address] Sep, Personal history of venous t hrombosis and embolism V12.51 [facility] [address] [id number] [address] [place] [address] Sep, Personal history of venous t hrombosis and embolism V12.51 [facility] [address] [id number] [address] [place] [address] Aug, Personal history of venous t hrombosis and embolism V12.51 [facility] [address] [id number] [address] [place] [address] Aug, Personal history of venous t hrombosis and embolism V12.51 [facility] [address] [id number] [address] [place] [address] 15 Aug, 2014 Personal history of venous t hrombosis and embolism V12.51 [facility] [address] [id number] [address] [place] [address] July, Generalized anxiety disorder 300.02 ; Abdominal pain, left lower quadrant 789.04 and Personal history of venous thrombosis and embolism V12.51 [facility] [address] [id number] [address] [place] [address] 14 Jun, 2014 [facility] [address] [id number] [address] [place] [address] Jun, [facility] [address] [id number] [address] [place] [address] May, [facility] [address] [id number] [address] [place] [address] May, [facility] [address] [id number] [address] [place] [address] May, [facility] [address] [id number] [address] [place] [address] May, [facility] [address] [id number] [address] [place] [address] May, [facility] [address] [id number] [address] [place] [address] May, [facility] [address] [id number] [address] [place] [address] May, [facility] [address] [id number] [address] [place] [address] May, [facility] [address] [id number] [address] [place] [address] Apr, [facility] [address] [id number] [address] [place] [address] Apr, [facility] [address] [id number] [address] [place] [address] Apr, [facility] [address] [id number] [address] [place] [address], [place] [address] Apr, [facility] [address] [id number] [address] [place] [address], [place] [address] Apr, [facility] [address] [id number] [address] [place] [address], [place] [address] Mar, [facility] [address] [id number] [address] [place] [address], [place] [address] Mar, [facility] [address] [id number] [address] [place] [address], [place] [address] Mar, [facility] [address] [id number] [address] [place] [address], [place] [address] Mar, [facility] [address] [id number] [address] [place] [address], [place] [address] Mar, [facility] [address] [id number] [address] [place] [address], [place] [address] Mar, [facility] [address] [id number] [address] [place] [address], [place] [address] Feb, [facility] [address] [id number] [address] [place] [address], [place] [address] Feb, [facility] [address] [id number] [address] [place] [address], [place] [address] Feb, [facility] [address] [id number] [address] [place] [address], [place] [address] Feb, [facility] [address] [id number] [address] [place] [address], [place] [address] Feb, [facility] [address] [id number] [address] [place] [address], [place] [address] Feb, [facility] [address] [id number] [address] [place] [address], [place] [address] Feb, [facility] [address] [id number] [address] [place] [address], [place] [address] Feb, [facility] [address] [id number] [address] [place] [address], [place] [address] Feb, [facility] [address] [id number] [address] [place] [address], [place] [address] Feb, [facility] [address] [id number] [address] [place] [address], [place] [address] Jan, [facility] [address] [id number] [address] [place] [address], [place] [address] Jan, [facility] [address] [id number] [address] [place] [address], [place] [address] Jan, [facility] [address] [id number] [address] [place] [address], [place] [address] Jan, [facility] [address] [id number] [address] [place] [address], [place] [address] Jan, [facility] [address] [id number] [address] [place] [address], [place] [address] Jan, [facility] [address] [id number] [address] [place] [address], [place] [address] Jan, [facility] [address] [id number] [address] [place] [address], [place] [address] Jan, [facility] [address] [id number] [address] [place] [address], [place] [address] Jan, [facility] [address] [id number] [address] [place] [address], [place] [address] Jan, [facility] [address] [id number] [address] [place] [address], [place] [address] Dec, [facility] [address] [id number] [address] [place] [address], [place] [address] Dec, [facility] [address] [id number] [address] [place] [address], [place] [address] Dec, [facility] [address] [id number] [address] [place] [address], [place] [address] Dec, [facility] [address] [id number] [address] [place] [address], [place] [address] Dec, [facility] [address] [id number] [address] [place] [address], [place] [address] Dec, [facility] [address] [id number] [address] [place] [address], [place] [address] Dec, [facility] [address] [id number] [address] [place] [address], [place] [address] Dec, [facility] [address] [id number] [address] [place] [address], [place] [address] Dec, [facility] [address] [id number] [address] [place] [address], [place] [address] Dec, [facility] [address] [id number] [address] [place] [address], [place] [address] Dec, [facility] [address] [id number] [address] [place] [address], [place] [address] Dec, [facility] [address] [id number] [address] [place] [address], [place] [address] Dec, [facility] [address] [id number] [address] [place] [address], [place] [address] Dec, [facility] [address] [id number] [address] [place] [address] Dec, [facility] [address] [id number] [address] [place] [address], [place] [address] Nov, [facility] [address] [id number] [address] [place] [address], [place] [address] Nov, [facility] [address] [id number] [address] [place] [address], [place] [address] Nov, [facility] [address] [id number] [facility] [place] [address] 26 Sep, 2013 [facility] [address] [id number] [address] [place] [address], [place] [address] 24 Sep, 2013 [facility] [address] [id number] [facility] [place] [address] 24 Sep, 2013 [facility] [address] [id number] [address] [place] [address], [place] [address] 23 Sep, 2013 [facility] [address] [id number] [address] [place] [address], [place] [address] 23 Sep, 2013 [facility] [address] [id number] [address] [place] [address], [place] [address] 18 Sep, 2013 [facility] [address] [id number] [address] [place] [address], [place] [address] 18 Sep, 2013 [facility] [address] [id number] [address] [place] [address], [place] [address] 17 Nov, 2013 [facility] [address] [id number] [address] [place] [address], [place] [address] 17 Sep, 2013 [facility] [address] [id number] [address] [place] [address], [place] [address] 11 Nov, 2013 [facility] [address] [id number] [address] [place] [address], [place] [address] 11 Nov, 2013 [facility] [address] [id number] [address] [place] [address], [place] [address] 10 Nov, 2013 [facility] [address] [id number] [address] [place] [address], [place] [address] 10 Nov, 2013 [facility] [address] [id number] [address] [place] [address], [place] [address] 08 Nov, 2013 [facility] [address] [id number] [address] [place] [address], [place] [address] 08 Nov, 2013 [facility] [address] [id number] [address] [place] [address], [place] [address] Sep, [facility] [address] [id number] [facility] [place] [address] Sep, [facility] [address] [id number] [facility] [place] [address] Sep, [facility] [address] [id number] [facility] [place] [address] Sep, [facility] [address] [id number] [address] [place] [address], [place] [address] Sep, [facility] [address] [id number] [address] [place] [address], [place] [address] Sep, [facility] [address] [id number] [address] [place] [address], [place] [address] Aug, [facility] [address] [id number] [address] [place] [address], [place] [address] Aug, [facility] [address] [id number] [address] [place] [address], [place] [address] Aug, [facility] [address] [id number] [address] [place] [address], [place] [address] Aug, [facility] [address] [id number] [address] [place] [address], [place] [address] Aug, [facility] [address] [id number] [address] [place] [address], [place] [address] Aug, [facility] [address] [id number] [address] [place] [address], [place] [address] Aug, [facility] [address] [id number] [address] [place] [address], [place] [address] Aug, [facility] [address] [id number] [address] [place] [address], [place] [address] Aug, [facility] [address] [id number] [address] [place] [address], [place] [address] Aug, [facility] [address] [id number] [address] [place] [address], [place] [address] Aug, [facility] [address] [id number] [address] [place] [address], [place] [address] July, [facility] [address] [id number] [address] [place] [address], [place] [address] July, [facility] [address] [id number] [address] [place] [address], [place] [address] Jun, [facility] [address] [id number] [address] [place] [address], [place] [address] Jun, [facility] [address] [id number] [address] [place] [address], [place] [address] Jun, [facility] [address] [id number] [address] [place] [address], [place] [address] Jun, [facility] [address] [id number] [address] [place] [address], [place] [address] Jun, [facility] [address] [id number] [address] [place] [address], [place] [address] Jun, [facility] [address] [id number] [address] [place] [address], [place] [address] Jun, [facility] [address] [id number] [address] [place] [address], [place] [address] Jun, [facility] [address] [id number] [address] [place] [address], [place] [address] Jun, [facility] [address] [id number] [address] [place] [address], [place] [address] Jun, [facility] [address] [id number] [address] [place] [address], [place] [address] Jun, [facility] [address] [id number] [address] [place] [address], [place] [address] Jun, [facility] [address] [id number] [address] [place] [address], [place] [address] May, [facility] [address] [id number] [facility] [place] [address] May, [facility] [address] [id number] [facility] [place] [address] May, [facility] [address] [id number] [facility] [place] [address] May, [facility] [address] [id number] [address] [place] [address], [place] [address] May, [facility] [address] [id number] [address] [place] [address], [place] [address] May, [facility] [address] [id number] [address] [place] [address], [place] [address] May, [facility] [address] [id number] [address] [place] [address], [place] [address] May, [facility] [address] [id number] [address] [place] [address], [place] [address] May, [facility] [address] [id number] [address] [place] [address], [place] [address] May, [facility] [address] [id number] [address] [place] [address], [place] [address] May, [facility] [address] [id number] [address] [place] [address], [place] [address] May, [facility] [address] [id number] [address] [place] [address], [place] [address] Apr, [facility] [address] [id number] [address] [place] [address], [place] [address] Apr, [facility] [address] [id number] [address] [place] [address], [place] [address] Apr, [facility] [address] [id number] [address] [place] [address], [place] [address] Apr, [facility] [address] [id number] [address] [place] [address], [place] [address] Apr, [facility] [address] [id number] [address] [place] [address], [place] [address] Apr, [facility] [address] [id number] [address] [place] [address], [place] [address] Apr, [facility] [address] [id number] [address] [place] [address], [place] [address] Apr, [facility] [address] [id number] [address] [place] [address], [place] [address] Apr, [facility] [address] [id number] [address] [place] [address], [place] [address] Apr, [facility] [address] [id number] [address] [place] [address], [place] [address] Apr, [facility] [address] [id number] [address] [place] [address], [place] [address] Apr, [facility] [address] [id number] [address] [place] [address], [place] [address] Apr, [facility] [address] [id number] [address] [place] [address], [place] [address] Apr, [facility] [address] [id number] [address] [place] [address], [place] [address] Apr, [facility] [address] [id number] [address] [place] [address], [place] [address] Apr, [facility] [address] [id number] [address] [place] [address], [place] [address] Apr, [facility] [address] [id number] [address] [place] [address], [place] [address] Jan, [facility] [address] [id number] [address] [place] [address], [place] [address] Jan, [facility] [address] [id number] [address] [place] [address], [place] [address] Jan, [facility] [address] [id number] [address] [place] [address], [place] [address] Jan, [facility] [address] [id number] [address] [place] [address], [place] [address] Jan, [facility] [address] [id number] [address] [place] [address], [place] [address] Jan, [facility] [address] [id number] [address] [place] [address], [place] [address] Jan, [facility] [address] [id number] [address] [place] [address], [place] [address] Dec, [facility] [address] [id number] [address] [place] [address], [place] [address] Dec, [facility] [address] [id number] [address] [place] [address], [place] [address] Dec, [facility] [address] [id number] [address] [place] [address], [place] [address] Nov, [facility] [address] [id number] [address] [place] [address], [place] [address] Nov, [facility] [address] [id number] [address] [place] [address], [place] [address] 05 Nov, 2012 [facility] [address] [id number] [address] [place] [address], [place] [address] Nov, [facility] [address] [id number] [address] [place] [address], [place] [address] Oct, [facility] [address] [id number] [address] [place] [address], [place] [address] Oct, [facility] [address] [id number] [address] [place] [address], [place] [address] Oct, [facility] [address] [id number] [address] [place] [address], [place] [address] Oct, [facility] [address] [id number] [address] [place] [address], [place] [address] Oct, [facility] [address] [id number] [address] [place] [address], [place] [address] Sep, [facility] [address] [id number] [address] [place] [address], [place] [address] Sep, [facility] [address] [id number] [address] [place] [address], [place] [address] Sep, [facility] [address] [id number] [address] [place] [address], [place] [address] Sep, [facility] [address] [id number] [address] [place] [address], [place] [address] Sep, [facility] [address] [id number] [address] [place] [address], [place] [address] Sep, [facility] [address] [id number] [address] [place] [address], [place] [address] Sep, [facility] [address] [id number] [address] [place] [address], [place] [address] Aug, [facility] [address] [id number] [address] [place] [address], [place] [address] Aug, [facility] [address] [id number] [address] [place] [address], [place] [address] July, [facility] [address] [id number] [address] [place] [address], [place] [address] Jun, [facility] [address] [id number] [address] [place] [address], [place] [address] Jun, [facility] [address] [id number] [address] [place] [address], [place] [address] Jun, [facility] [address] [id number] [address] [place] [address], [place] [address] Apr, [facility] [address] [id number] [address] [place] [address], [place] [address] Apr, [facility] [address] [id number] [address] [place] [address], [place] [address] 12 Apr, 2012 [facility] [address] [id number] [address] [place] [address], [place] [address] Mar, [facility] [address] [id number] [address] [place] [address], [place] [address] Mar, [facility] [address] [id number] [address] [place] [address], [place] [address] 2012 [facility] [address] [id number] [address] [place] [address], [place] [address] Mar, [facility] [address] [id number] [address] [place] [address], [place] [address] Mar, [facility] [address] [id number] [address] [place] [address], [place] [address] 14 Feb, 2012 [facility] [address] [id number] [address] [place] [address], [place] [address] 14 Feb, 2012 [facility] [address] [id number] [address] [place] [address], [place] [address] 13 Jan, 2012 [facility] [address] [id number] [address] [place] [address], [place] [address] 13 Jan, 2012 [facility] [address] [id number] [address] [place] [address], [place] [address] 13 Jan, 2012 [facility] [address] [id number] [address] [place] [address], [place] [address] 13 Jan, 2012 [facility] [address] [id number] [address] [place] [address], [place] [address] 07 Jan, 2012 [facility] [address] [id number] [address] [place] [address], [place] [address] 07 Jan, 2012 [facility] [address] [id number] [address] [place] [address], [place] [address] 06 Jan, 2012 [facility] [address] [id number] [address] [place] [address] [address] Dec, [facility] [address] [id number] [address] [place] [address], [place] [address] Dec, [facility] [address] [id number] [address] [place] [address], [place] [address] Dec, [facility] [address] [id number] [address] [place] [address], [place] [address] Dec, [facility] [address] [id number] [address] [place] [address], [place] [address] Dec, [facility] [address] [id number] [address] [place] [address], [place] [address] Dec, [facility] [address] [id number] [address] [place] [address], [place] [address] Dec, [facility] [address] [id number] [address] [place] [address], [place] [address] Dec, [facility] [address] [id number] [address] [place] [address], [place] [address] Dec, [facility] [address] [id number] [address] [place] [address], [place] [address] Dec, [facility] [address] [id number] [address] [place] [address], [place] [address] Oct, [facility] [address] [id number] [address] [place] [address], [place] [address] Oct, [facility] [address] [id number] [address] [place] [id number] Aug, [facility] [address] [id number] [address] [place] [address], [place] [address] Aug, [facility] [address] [id number] [address] [place] [address] July, [facility] [address] [id number] [address] [place] [address], [place] [address] Jun, [facility] [address] [id number] [address] [place] [address], [place] [address] Jun, [facility] [address] [id number] [address] [place] [address], [place] [address] May, [facility] [address] [id number] [address] [place] [address], [place] [address] 22 Apr, 2011 [facility] [address] [id number] [address] [place] [address], [place] [address] 16 Apr, 2011 [facility] [address] [id number] [address] [place] [address], [place] [address] Mar, [facility] [address] [id number] [address] [place] [address], [place] [address] Mar, [facility] [address] [id number] [address] [place] [address], [place] [address] Feb, [facility] [address] [id number] [address] [place] [address], [place] [address] 15 Feb, 2011 [facility] [address] [id number] [address] [place] [address], [place] [address] Feb, [facility] [address] [id number] [address] [place] [address], [place] [address] Feb, [facility] [address] [id number] [address] [place] [address], [place] [address] Jan, [facility] [address] [id number] [address] [place] [address], [place] [address] 17 Dec, 2010 [facility] [address] [id number] [address] [place] [address], [place] [address] Feb, [facility] [address] [id number] [address] [place] [address], [place] [address] Feb, [facility] [address] [id number] [address] [place] [address], [place] [address] Feb, [facility] [address] [id number] [address] [place] [address], [place] [address] Feb, [facility] [address] [id number] [address] [place] [address] Dec, [facility] [address] [id number] [address] [place] [address] Dec, [facility] [address] [id number] [address] [place] [address] Oct, [facility] [address] [id number] [address] [place] [address] Jun, [facility] [address] [id number] [address] [place] [id number] Feb, [facility] [address] [id number] [address] [place] [address] Feb, [facility] [address] [id number] [address] [place] [address] Feb, [facility] [address] [id number] [address] [place] [address] Dec, IMMUNIZATIONS No Known Immunizations SOCIAL HISTORY [...]
--- OUTSIDE RECORDS SUMMARY | 2019-10-19 12:23 | XMS REPORT ---
Author Author Mary Jane Mcginnis Doctor Organization [facility] Address Unknown Phone Unavailable Care Team Providers Care Siphoner Name Role Phone Migration, Doctor Unavailable Unavailable PROBLEMS Type Condition ICD9-CM Code [id number] Code Onset Dates Condition S tatus SNOMED Code Problem Thyroid follicular adenoma D34 Act phylicia 502977880 Problem History of DVT (deep vein thrombosis) Z86.718 Active 205829769 Problem Factor V Leiden D68.51 Active 3070 00240 Problem USP (current) use of anticoagulants Z79.01 Active 824381690 Problem Hypertriglyceridemia E78.1 Active 566129112 Problem 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 Active 959927063 Problem Pelvic pain R10.2 Active 41662545 Problem Peripheral edema R60.9 Active 271 032407 Problem Moderate episode of recurrent major depressive disorder F33.1 Active 461223887 Problem Presence of IVC filter Z95.828 Active 247480568 Problem Vitamin D deficiency E55.9 Active 94565380 Problem Generalized anxiety disorder F41.1 A ctive 572491482 Problem Excessive daytime sleepiness G47.19 A ctive 665058841384 Problem Gastroesophageal reflux disease, esophagitis pre sence not specified K21.9 Active 752334154 Problem Thyroid nodule E04.1 Active 62357 5005 Problem Morbid obesity E66.01 Active 89181 6002 ALLERGIES No Information ENCOUNTERS Encounter Location Date Diagnosis [facility] [place] [address] [facility] [id number] [address] [place] [phone] July, [facility] [place] [address] [facility] [id number] [address] [place] [phone] 28 Jun, 2019 [place] [address] [facility] [id number] [address] [place] [phone] 15 Jun, 2019 Back pain with history of sp inal surgery M54.9 [facility] [place] [address] [facility] [id number] [address] [place] [phone] 12 Apr, 2019 Back pain with history of sp inal surgery M54.9 [facility] [place] [address] [id number] [address] [place] [id number] 11 Apr, 2019 [facility] [place] [address] [facility] [id number] [address] [place] [phone] 10 Apr, 2019 Gastroenteritis K52.9 ; Back pain with history of spinal surgery M54.9 ; Dermatofibroma of lower leg, unspecified laterality D23.70 and Morbid obesity E66.01 [place] [address] [id number] [address] [place] [phone] Mar, [place] [address] [address] [facility] [id number] [address] [place] [phone] Jan, [place] [address] [id number] [address] [place] [phone] Jan, [place] [address] [facility] [id number] [address] [place] [phone] Dec, Encounter for weight managem ent Z76.89 [place] [address] [id number] [address] [place] [phone] Dec, Encounter for weight managem ent Z76.89 and Screening mammogram, encounter for Z12.31 [place] [address] [address] [facility] [id number] [address] [place] [phone] Nov, Encounter for weight managem ent Z76.89 [place] [address] [id number] [address] [place] [phone] Nov, Thyroid nodule E04.1 [place] [address] [address] [facility] [id number] [address] [place] [phone] Nov, Thyroid nodule E04.1 [place] [address] [address] [facility] [id number] [address] [place] [phone] Nov, Thyroid nodule E04.1 [place] [address] [address] [facility] [id number] [address] [place] [phone] Oct, Syncope, unspecified syncope type R55 and Encounter for weight management Z76.89 [facility] [place] [address] [facility] [id number] [address] [place] [phone] Oct, Morbid obesity E66.01 [facility] [place] [address] [id number] [address] [place] [phone] Oct, Hypertriglyceridemia E78.1 [facility] [place] [address] [facility] [id number] [address] [place] [phone] Oct, [facility] [place] [address] [id number] [address] [place] [phone] Oct, Hypertriglyceridemia E78.1 [place] [address] [facility] [id number] [address] [place] [phone] Sep, Hypertriglyceridemia E78.1 a nd Vitamin D deficiency E55.9 [place] [address] [address] [facility] [id number] [address] [place] [phone] Sep, [facility] [place] [address] [facility] [id number] [address] [place] [phone] Sep, Morbid obesity E66.01 ; Mode rate episode of recurrent major depressive disorder F33.1 ; Hypertriglyceridemia E78.1 and Vitamin D deficiency E55.9 [facility] [place] [address] [facility] [id number] [address] [place] [phone] Aug, [facility] [place] [address] [facility] [id number] [address] [place] [phone] July, [facility] [place] [address] [facility] [id number] [address] [place] [phone] July, [facility] [place] [address] [facility] [id number] [address] [place] [phone] Jun, [facility] [place] [address] [facility] [id number] [address] [place] [phone] Jun, [facility] [place] [address] [facility] [id number] [address] [place] [phone] Jun, Closed compression fracture of L3 lumbar vertebra with routine healing, subsequent encounter S32.030D and Drug-induced constipation K59.03 [facility] [place] [address] [facility] [id number] [address] [place] [phone] Jun, [facility] [place] [address] [facility] [id number] [address] [place] [phone] Jun, [facility] [place] [address] [facility] [id number] [place] [phone] Apr, [facility] [place] [address] [facility] [id number] [place] [phone] Apr, Morbid obesity E66.01 [facility] [place] [address] [facility] [id number] [place] [phone] Apr, Morbid obesity E66.01 ; Hype rtriglyceridemia E78.1 ; Gastroesophageal reflux disease, esophagitis presence not specified K21.9 and Joint pain M25.50 [facility] [place] [id number] [place] [phone] Feb, [facility] [place] [address] [phone] Feb, [facility] [address] [place] [id number] [place] [phone] Jan, Acute bacterial conjunctivit is H10.30 [facility] [place] [address] [place] [id number] [address] [place] [phone] Dec, [facility] [place] [address] [facility] [id number] [address] [place] [phone] Dec, [facility] [place] [address] [facility] [id number] [address] [place] [phone] Nov, [facility] [place] [address] [place] [id number] [place] [phone] 07 Nov, 2017 Obstructive sleep apnea G47. 33 ; Morbid obesity E66.01 and Gastroesophageal reflux disease, esophagitis presence not specified K21.9 [facility] [address] [id number] [address] [place] [id number] 06 Nov, 2017 Encounter for examination of eyes and vision without abnormal findings Z01.00 [facility] [place] [address] [facility] [id number] [address] [place] [phone] 31 Oct, 2017 Thyroid nodule E04.1 and Scr eening for breast cancer Z12.31 [facility] [place] [address] [place] [id number] [address] [place] [phone] 23 Oct, 2017 History of DVT (deep vein th rombosis) Z86.718 ; Thyroid nodule E04.1 and Gastroesophageal reflux disease, esophagitis presence not specified K21.9 [place] [address] [place] [id number] [place] [phone] Oct, [place] [address] [place] [id number] [place] [phone] Sep, [place] [address] [place] [id number] [place] [phone] Aug, [place] [address] [place] [id number] [address] [place] [phone] Aug, [place] [address] [place] [id number] [place] [phone] Aug, Acute pain of left shoulder M25.512 and Thyroid nodule E04.1 [place] [address] [place] [id number] [address] [place] [phone] July, Superior glenoid labrum lesi on of left shoulder, subsequent encounter S43.432D [facility] [place] [address] [place] [id number] [address] [place] [phone] Jun, History of DVT (deep vein th rombosis) Z86.718 [facility] [place] [address] [place] [id number] [address] [place] [phone] Jun, History of DVT (deep vein th rombosis) Z86.718 [facility] [place] [address] [place] [id number] [address] [place] [phone] Jun, Impingement syndrome, should er, left M75.42 [place] [address] [address] [facility] [id number] [address] [place] [phone] May, Subacromial bursitis of left shoulder joint M75.52 [place] [address] [address] [facility] [id number] [address] [place] [phone] May, [place] [address] [address] [facility] [id number] [address] [place] [phone] May, Hypertriglyceridemia E78.1 ; 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 and Excessive daytime sleepiness G47.19 [place] [address] [address] [facility] [id number] [address] [place] [phone] May, History of DVT (deep vein th rombosis) Z86.718 ; Generalized anxiety disorder F41.1 ; Hypertriglyceridemia E78.1 ; 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 ; Subacromial bursitis of left shoulder joint M75.52 and Excessive daytime sleepiness G47.19 [place] [address] [id number] [address] [place] [phone] May, [place] [address] [facility] [id number] [address] [place] [phone] May, 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 (current) use of a nticoagulants Z79.01 [place] [address] [facility] [id number] [address] [place] [phone] Apr, USP (current) use of a nticoagulants Z79.01 [place] [address] [id number] [address] [place] [phone] Apr, USP (current) use of a nticoagulants Z79.01 [place] [address] [facility] [id number] [address] [place] [phone] Apr, 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 (current) use of a nticoagulants Z79.01 [place] [address] [id number] [address] [place] [phone] 16 Apr, 2017 [facility] [place] [address] [id number] [address] [place] [phone] Apr, USP (current) use of a nticoagulants Z79.01 [facility] [place] [address] [id number] [address] [place] [phone] 13 Apr, 2017 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 (current) use of a nticoagulants Z79.01 [facility] [place] [address] [id number] [address] [place] [phone] Apr, 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 (current) use of a nticoagulants Z79.01 [facility] [place] [address] [id number] [address] [place] [phone] Apr, USP (current) use of a nticoagulants Z79.01 [facility] [place] [address] [id number] [address] [place] [phone] Apr, USP (current) use of a nticoagulants Z79.01 [facility] [place] [address] [id number] [address] [place] [phone] Apr, 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 (current) use of a nticoagulants Z79.01 [facility] [place] [address] [id number] [address] [place] [phone] Mar, 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 (current) use of a nticoagulants Z79.01 [facility] [place] [address] [id number] [address] [place] [phone] Mar, [facility] [place] [address] [id number] [address] [place] [phone] Mar, 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 (current) use of a nticoagulants Z79.01 [facility] [address] [id number] [address] [place] [address] [phone] Jan, Dental examination Z01.20 [facility] [address] [id number] [address] [place] [address] [phone] Jan, [facility] [place] [address] [id number] [address] [place] [phone] Jan, USP (current) use of a nticoagulants Z79.01 [facility] [place] [address] [id number] [address] [place] [phone] Jan, History of DVT (deep vein th rombosis) Z86.718 [facility] [place] [address] [id number] [address] [place] [phone] Jan, Generalized anxiety disorder F41.1 and Peripheral edema R60.9 [place] [address] [id number] [address] [place] [phone] Nov, History of DVT (deep vein th rombosis) Z86.718 [facility] [place] [address] [id number] [address] [place] [phone] Nov, 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 (current) use of a nticoagulants Z79.01 [facility] [address] [id number] [address] [place] [phone] Nov, Acute non-recurrent maxillar y sinusitis J01.00 [facility] [place] [address] [id number] [address] [place] [phone] Oct, USP (current) use of a nticoagulants Z79.01 [facility] [place] [address] [id number] [address] [place] [phone] Oct, Personal history of venous t hrombosis and embolism Z86.718 [facility] [place] [address] [id number] [address] [place] [phone] Sep, [facility] [place] [address] [id number] [address] [place] [phone] Sep, Personal history of venous t hrombosis and embolism Z86.718 [facility] [place] [address] [facility] [id number] [address] [place] [phone] Sep, 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 (current) use of a nticoagulants Z79.01 [facility] [place] [address] [id number] [address] [place] [phone] Sep, USP (current) use of a nticoagulants Z79.01 [facility] [place] [address] [facility] [id number] [address] [place] [phone] Sep, Generalized anxiety disorder F41.1 and History of DVT (deep vein thrombosis) Z86.718 [place] [address] [facility] [id number] [address] [place] [phone] Aug, History of DVT (deep vein th rombosis) Z86.718 ; Generalized anxiety disorder F41.1 ; USP (current) use of anticoagulants Z79.01 ; Pelvic pain R10.2 ; Hypertriglyceridemia E78.1 ; Excessive daytime sleepiness G47.19 ; Colon cancer screening Z12.11 ; Screening for breast cancer Z12.39 ; Peripheral edema R60.9 and Gastroesophageal reflux disease, esophagitis presence not specified K21.9 [place] [address] [facility] [id number] [address] [place] [phone] Aug, [place] [address] [address] [facility] [id number] [address] [place] [phone] July, [place] [address] [facility] [id number] [address] [place] [phone] July, History of DVT (deep vein th rombosis) Z86.718 [place] [address] [id number] [address] [place] [phone] Jun, Generalized anxiety disorder F41.1 [place] [address] [id number] [address] [place] [phone] Jun, History of DVT (deep vein th rombosis) Z86.718 [place] [address] [address] [facility] [id number] [address] [place] [phone] Jun, History of DVT (deep vein th rombosis) Z86.718 [place] [address] [address] [facility] [id number] [address] [place] [phone] Jun, History of DVT (deep vein th rombosis) Z86.718 [facility] [place] [address] [facility] [id number] [address] [place] [phone] Jun, History of DVT (deep vein th rombosis) Z86.718 [facility] [place] [address] [place] [id number] [address] [place] [phone] May, History of DVT (deep vein th rombosis) Z86.718 [place] [address] [address] [facility] [id number] [address] [place] [phone] May, USP (current) use of a nticoagulants Z79.01 [place] [address] [place] [id number] [address] [place] [phone] May, 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 (current) use of a nticoagulants Z79.01 [facility] [place] [id number] [place] [phone] May, History of DVT (deep vein th rombosis) Z86.718 [facility] [address] [place] [id number] [address] [place] [phone] Apr, Bacterial conjunctivitis of left eye H10.9 and H/O motion sickness Z87.898 [facility] [place] [address] [place] [id number] [address] [place] [phone] Apr, History of DVT (deep vein th rombosis) Z86.718 [facility] [place] [address] [place] [id number] [address] [place] [phone] Apr, History of DVT (deep vein th rombosis) Z86.718 [facility] [place] [address] [place] [id number] [address] [place] [phone] Apr, History of DVT (deep vein th rombosis) Z86.718 [facility] [place] [address] [place] [id number] [address] [place] [phone] 14 Apr, 2016 USP (current) use of a nticoagulants Z79.01 [facility] [place] [address] [id number] [address] [place] [phone] Mar, [facility] [place] [address] [id number] [address] [place] [phone] Mar, USP (current) use of a nticoagulants Z79.01 [facility] [place] [address] [id number] [address] [place] [phone] Mar, Hypertriglyceridemia E78.1 a nd 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 [facility] [place] [address] [id number] [address] [place] [phone] Feb, 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 (current) use of a nticoagulants Z79.01 [place] [id number] [id number] [address] [place] [phone] Feb, USP (current) use of a nticoagulants Z79.01 [facility] [place] [address] [id number] [address] [place] [phone] Feb, 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 (current) use of a nticoagulants Z79.01 [facility] [place] [address] [id number] [address] [place] [phone] Dec, [facility] [place] [address] [id number] [address] [place] [phone] Nov, [facility] [place] [address] [id number] [address] [place] [phone] 13 Nov, 2015 History of DVT (deep vein th rombosis) Z86.718 ; Tremulousness R25.1 ; Generalized anxiety disorder F41.1 ; Peripheral edema R60.9 and Hypertriglyceridemia E78.1 [facility] [place] [address] [id number] [address] [place] [phone] Oct, History of DVT (deep vein th rombosis) Z86.718 [place] [address] [id number] [address] [place] [phone] Oct, [place] [id number] [facility] [id number] [address] [place] [phone] Sep, History of DVT (deep vein th rombosis) Z86.718 [place] [address] [address] [facility] [id number] [address] [place] [phone] Sep, 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 (current) use of a nticoagulants Z79.01 [place] [address] [address] [facility] [id number] [address] [place] [phone] July, [place] [address] [address] [facility] [id number] [address] [place] [phone] July, 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 (current) use of a nticoagulants Z79.01 [place] [address] [address] [facility] [id number] [address] [place] [phone] July, USP (current) use of a nticoagulants Z79.01 [place] [address] [address] [facility] [id number] [address] [place] [phone] Jun, 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 (current) use of a nticoagulants Z79.01 [facility] [place] [address] [address] [facility] [id number] [address] [place] [phone] Jun, Coccyx pain M53.3 ; Encounte r for therapeutic drug level monitoring Z51.81 and 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 current use 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.01 [id number] N [facility] [id number] [address] [place] [phone] May, Abnormal mammogram R92.8 [facility] [place] [id number] N [facility] [id number] [address] [place] [phone] May, [facility] [place] [address] [address] [facility] [id number] [address] [place] [phone] May, Acute vaginitis N76.0 and En counter for other screening for malignant neoplasm of breast Z12.39 [place] [address] [place] [id number] [address] [place] [phone] Apr, [facility] [place] [address] [facility] [id number] [address] [place] [phone] Apr, [facility] [place] [address] [facility] [id number] [address] [place] [phone] Apr, Peripheral edema R60.9 [facility] [place] [address] [facility] [id number] [address] [place] [phone] Apr, USP (current) use of a nticoagulants Z79.01 [facility] [place] [address] [id number] [address] [place] [phone] Apr, Peripheral edema R60.9 and L jose martin term (current) 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 Z79.01 [facility] [place] [address] [facility] [id number] [address] [place] [phone] Apr, USP (current) use of a nticoagulants Z79.01 [facility] [place] [address] [id number] [address] [place] [phone] Apr, [facility] [place] [address] [facility] [id number] [address] [place] [phone] Apr, USP (current) use of a nticoagulants Z79.01 [facility] [place] [address] [facility] [id number] [address] [place] [phone] Apr, Peripheral edema R60.9 [facility] [place] [address] [facility] [id number] [address] [place] [phone] Mar, 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 (current) use of a nticoagulants Z79.01 [facility] [place] [address] [id number] [address] [place] [phone] Mar, USP (current) use of a nticoagulants Z79.01 and Hypertriglyceridemia E78.1 [facility] [place] [address] [facility] [id number] [address] [place] [phone] Mar, USP (current) use of a nticoagulants Z79.01 [facility] [place] [address] [id number] [address] [place] [phone] Mar, 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 (current) use of a nticoagulants Z79.01 [facility] [place] [address] [id number] [address] [place] [phone] Mar, [facility] [place] [address] [id number] [address] [place] [phone] Mar, 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 (current) use of a nticoagulants Z79.01 ; Hypertriglyceridemia E78.1 ; Personal history of venous thrombosis and embolism Z86.718 and Lump R22.9 [place] [address] [id number] [address] [place] [phone] Mar, Personal history of venous t hrombosis and embolism Z86.718 [place] [address] [id number] [address] [place] [phone] Mar, Personal history of venous t hrombosis and embolism Z86.718 [place] [address] [id number] [address] [place] [phone] Mar, [place] [address] [id number] [address] [place] [phone] Dec, Personal history of venous t hrombosis and embolism Z86.718 [place] [address] [id number] [address] [place] [phone] Dec, Personal history of venous t hrombosis and embolism V12.51 [place] [address] [id number] [address] [place] [phone] Nov, Personal history of venous t hrombosis and embolism V12.51 [place] [address] [id number] [address] [place] [phone] Nov, Personal history of venous t hrombosis and embolism V12.51 [place] [address] [id number] [address] [place] [phone] Nov, Personal history of venous t hrombosis and embolism V12.51 [facility] [place] [address] [id number] [address] [place] [phone] Nov, Personal history of venous t hrombosis and embolism V12.51 [facility] [place] [address] [id number] [address] [place] [phone] Nov, [facility] [place] [address] [id number] [address] [place] [phone] Oct, Dysuria 788.1 [place] [address] [id number] [address] [place] [phone] Oct, Personal history of venous t hrombosis and embolism V12.51 [place] [address] [id number] [address] [place] [phone] Oct, [facility] [place] [address] [id number] [address] [place] [phone] Oct, Personal history of venous t hrombosis and embolism V12.51 [place] [address] [id number] [address] [place] [phone] Sep, Personal history of venous t hrombosis and embolism V12.51 [place] [address] [id number] [address] [place] [phone] Sep, Personal history of venous t hrombosis and embolism V12.51 [facility] [place] [address] [id number] [address] [place] [phone] Aug, Personal history of venous t hrombosis and embolism V12.51 [place] [address] [id number] [address] [place] [phone] Aug, Personal history of venous t hrombosis and embolism V12.51 [facility] [place] [address] [id number] [address] [place] [phone] Aug, Personal history of venous t hrombosis and embolism V12.51 [facility] [place] [address] [id number] [address] [place] [phone] July, Generalized anxiety disorder 300.02 ; Abdominal pain, left lower quadrant 789.04 and Personal history of venous thrombosis and embolism V12.51 [facility] [place] [address] [id number] [address] [place] [phone] 14 Jun, 2014 [facility] [place] [address] [id number] [address] [place] [phone] Jun, [facility] [place] [address] [id number] [address] [place] [phone] May, [facility] [place] [address] [id number] [address] [place] [phone] May, [facility] [place] [address] [id number] [address] [place] [phone] May, [facility] [place] [address] [id number] [address] [place] [phone] May, [facility] [place] [address] [id number] [address] [place] [phone] May, [facility] [place] [address] [id number] [address] [place] [phone] May, [facility] [place] [address] [id number] [address] [place] [phone] May, [facility] [place] [address] [id number] [address] [place] [phone] May, [facility] [place] [address] [id number] [address] [place] [phone] Apr, [facility] [place] [address] [id number] [address] [place] [phone] Apr, [facility] [place] [address] [id number] [address] [place] [phone] Apr, [facility] [place] [address] [id number] [address] [place] [phone] Apr, [facility] [address] [id number] [address] [place] [address], [place] [address] Apr, [facility] [address] [id number] [address] [place] [address], [place] [address] Mar, [facility] [address] [id number] [address] [place] [address], [place] [address] Mar, [facility] [address] [id number] [address] [place] [address], [place] [address] Mar, [facility] [address] [id number] [address] [place] [address], [place] [address] Mar, [facility] [address] [id number] [address] [place] [address], [place] [address] Mar, [facility] [address] [id number] [address] [place] [address], [place] [address] Mar, [facility] [address] [id number] [address] [place] [address], [place] [address] Feb, [facility] [address] [id number] [address] [place] [address], [place] [address] Feb, [facility] [address] [id number] [address] [place] [address], [place] [address] Feb, [facility] [address] [id number] [address] [place] [address], [place] [address] Feb, [facility] [address] [id number] [address] [place] [address], [place] [address] Feb, [facility] [address] [id number] [address] [place] [address], [place] [address] Feb, [facility] [address] [id number] [address] [place] [address], [place] [address] Feb, [facility] [address] [id number] [address] [place] [address], [place] [address] Feb, [facility] [address] [id number] [address] [place] [address], [place] [address] Feb, [facility] [address] [id number] [address] [place] [address], [place] [address] Feb, [facility] [address] [id number] [address] [place] [address], [place] [address] Jan, [facility] [address] [id number] [address] [place] [address], [place] [address] Jan, [facility] [address] [id number] [address] [place] [address], [place] [address] Jan, [facility] [address] [id number] [address] [place] [address], [place] [address] Jan, [facility] [address] [id number] [address] [place] [address], [place] [address] Jan, [facility] [address] [id number] [address] [place] [address], [place] [address] Jan, [facility] [address] [id number] [address] [place] [address], [place] [address] Jan, [facility] [address] [id number] [address] [place] [address], [place] [address] Jan, [facility] [address] [id number] [address] [place] [address], [place] [address] Jan, [facility] [address] [id number] [address] [place] [address], [place] [address] Jan, [facility] [address] [id number] [address] [place] [address], [place] [address] Dec, [facility] [address] [id number] [address] [place] [address], [place] [address] Dec, [facility] [address] [id number] [address] [place] [address], [place] [address] Dec, [facility] [address] [id number] [address] [place] [address], [place] [address] Dec, [facility] [address] [id number] [address] [place] [address], [place] [address] Dec, [facility] [address] [id number] [address] [place] [address], [place] [address] Dec, [facility] [address] [id number] [address] [place] [address], [place] [address] Dec, [facility] [address] [id number] [address] [place] [address], [place] [address] Dec, [facility] [address] [id number] [address] [place] [address], [place] [address] Dec, [facility] [address] [id number] [address] [place] [address], [place] [address] Dec, [facility] [address] [id number] [address] [place] [address], [place] [address] Dec, [facility] [address] [id number] [address] [place] [address], [place] [address] Dec, [facility] [address] [id number] [address] [place] [address], [place] [address] Dec, [facility] [address] [id number] [address] [place] [address], [place] [address] Dec, [facility] [address] [id number] [address] [place] [address], [place] [address] Dec, [facility] [address] [id number] [address] [place] [phone] Nov, [facility] [address] [id number] [address] [place] [address], [place] [address] 30 Nov, 2013 [facility] [address] [id number] [address] [place] [address], [place] [address] Nov, [facility] [address] [id number] [address] [place] [address], [place] [address] Nov, [facility] [address] [id number] [facility] [place] [address] 24 Sep, 2013 [facility] [address] [id number] [address] [place] [address], [place] [address] 24 Sep, 2013 [facility] [address] [id number] [address] [place] [address], [place] [address] 23 Sep, 2013 [facility] [address] [id number] [address] [place] [address], [place] [address] 23 Sep, 2013 [facility] [address] [id number] [address] [place] [address], [place] [address] 18 Nov, 2013 [facility] [address] [id number] [address] [place] [address], [place] [address] 18 Nov, 2013 [facility] [address] [id number] [address] [place] [address], [place] [address] 17 Nov, 2013 [facility] [address] [id number] [address] [place] [address], [place] [address] 17 Nov, 2013 [facility] [address] [id number] [address] [place] [address], [place] [address] 11 Nov, 2013 [facility] [address] [id number] [address] [place] [address], [place] [address] 11 Nov, 2013 [facility] [address] [id number] [address] [place] [address], [place] [address] 10 Nov, 2013 [facility] [address] [id number] [address] [place] [address], [place] [address] 10 Nov, 2013 [facility] [address] [id number] [address] [place] [address], [place] [address] 08 Nov, 2013 [facility] [address] [id number] [address] [place] [address], [place] [address] 08 Nov, 2013 [facility] [address] [id number] [address] [place] [address], [place] [address] 22 Sep, 2013 [facility] [address] [id number] [address] [place] [address], [place] [address] Sep, [facility] [address] [id number] [address] [place] [address], [place] [address] Sep, [facility] [address] [id number] [address] [place] [address], [place] [address] Sep, [facility] [address] [id number] [address] [place] [address], [place] [address] Sep, [facility] [address] [id number] [address] [place] [address], [place] [address] Sep, [facility] [address] [id number] [address] [place] [address], [place] [address] Aug, [facility] [address] [id number] [address] [place] [address], [place] [address] Aug, [facility] [address] [id number] [address] [place] [address], [place] [address] Aug, [facility] [address] [id number] [address] [place] [address], [place] [address] Aug, [facility] [address] [id number] [address] [place] [address], [place] [address] Aug, [facility] [address] [id number] [address] [place] [address], [place] [address] Aug, [facility] [address] [id number] [address] [place] [address], [place] [address] Aug, [facility] [address] [id number] [address] [place] [address], [place] [address] Aug, [facility] [address] [id number] [address] [place] [address], [place] [address] Aug, [facility] [address] [id number] [address] [place] [address], [place] [address] Aug, [facility] [address] [id number] [address] [place] [address], [place] [address] Aug, [facility] [address] [id number] [address] [place] [address], [place] [address] July, [facility] [address] [id number] [address] [place] [address], [place] [address] July, [facility] [address] [id number] [address] [place] [address], [place] [address] Jun, [facility] [address] [id number] [address] [place] [address], [place] [address] Jun, [facility] [address] [id number] [address] [place] [address], [place] [address] Jun, [facility] [address] [id number] [address] [place] [address], [place] [address] Jun, [facility] [address] [id number] [address] [place] [address], [place] [address] Jun, [facility] [address] [id number] [address] [place] [address], [place] [address] Jun, [facility] [address] [id number] [address] [place] [address], [place] [address] Jun, [facility] [address] [id number] [address] [place] [address], [place] [address] Jun, [facility] [address] [id number] [address] [place] [address], [place] [address] Jun, [facility] [address] [id number] [address] [place] [address], [place] [address] Jun, [facility] [address] [id number] [address] [place] [address], [place] [address] Jun, [facility] [address] [id number] [address] [place] [address], [place] [address] Jun, [facility] [address] [id number] [address] [place] [address], [place] [address] May, [facility] [address] [id number] [address] [place] [address], [place] [address] May, [facility] [address] [id number] [facility] [place] [address] 20 May, 2013 [facility] [address] [id number] [facility] [place] [place] [address] May, [facility] [address] [id number] [facility] [place] [address] May, [facility] [address] [id number] [address] [place] [address], [place] [address] May, [facility] [address] [id number] [address] [place] [address], [place] [address] May, [facility] [address] [id number] [address] [place] [address], [place] [address] May, [facility] [address] [id number] [address] [place] [address], [place] [address] May, [facility] [address] [id number] [address] [place] [address], [place] [address] May, [facility] [address] [id number] [address] [place] [address], [place] [address] May, [facility] [address] [id number] [address] [place] [address], [place] [address] May, [facility] [address] [id number] [address] [place] [address], [place] [address] Apr, [facility] [address] [id number] [address] [place] [address], [place] [address] Apr, [facility] [address] [id number] [address] [place] [address], [place] [address] Apr, [facility] [address] [id number] [address] [place] [address], [place] [address] Apr, [facility] [address] [id number] [address] [place] [address], [place] [address] Apr, [facility] [address] [id number] [address] [place] [address], [place] [address] Apr, [facility] [address] [id number] [address] [place] [address], [place] [address] Apr, [facility] [address] [id number] [address] [place] [address], [place] [address] Apr, [facility] [address] [id number] [address] [place] [address], [place] [address] Apr, [facility] [address] [id number] [address] [place] [address], [place] [address] Apr, [facility] [address] [id number] [address] [place] [address], [place] [address] Apr, [facility] [facility] [address] [id number] [address] [place] [address], [place] [address] Apr, [facility] [address] [id number] [address] [place] [address], [place] [address] Apr, [facility] [address] [id number] [address] [place] [address], [place] [address] Apr, [facility] [address] [id number] [address] [place] [address], [place] [address] Apr, [facility] [address] [id number] [address] [place] [address], [place] [address] Apr, [facility] [address] [id number] [address] [place] [address], [place] [address] Apr, [facility] [address] [id number] [address] [place] [address], [place] [address] Jan, [facility] [address] [id number] [address] [place] [address], [place] [address] Jan, [facility] [address] [id number] [address] [place] [address], [place] [address] Jan, [facility] [address] [id number] [address] [place] [id number] Jan, [facility] [address] [id number] [address] [place] [address], [place] [address] Jan, [facility] [address] [id number] [address] [place] [address], [place] [address] Jan, [facility] [address] [id number] [address] [place] [address], [place] [address] Jan, [facility] [address] [id number] [address] [place] [address], [place] [address] Dec, [facility] [address] [id number] [address] [place] [address], [place] [address] Dec, [facility] [address] [id number] [address] [place] [address], [place] [address] Dec, [facility] [address] [id number] [address] [place] [address], [place] [address] Nov, [facility] [address] [id number] [address] [place] [address], [place] [address] Nov, [facility] [address] [id number] [address] [place] [address], [place] [address] 05 Nov, 2012 [facility] [address] [id number] [address] [place] [address], [place] [address] Nov, [facility] [address] [id number] [address] [place] [address], [place] [address] Oct, [facility] [address] [id number] [address] [place] [id number] Oct, [facility] [address] [id number] [address] [place] [address], [place] [address] Oct, [facility] [address] [id number] [address] [place] [address], [place] [address] Oct, [facility] [address] [id number] [address] [place] [id number] Oct, [facility] [address] [id number] [address] [place] [address], [place] [address] Sep, [facility] [address] [id number] [address] [place] [address], [place] [address] Sep, [facility] [address] [id number] [address] [place] [address], [place] [address] Sep, [facility] [address] [id number] [address] [place] [address], [place] [address] Sep, [facility] [address] [id number] [address] [place] [address], [place] [address] Sep, [facility] [address] [id number] [address] [place] [address], [place] [address] Sep, [facility] [address] [id number] [address] [place] [address], [place] [address] Sep, [facility] [address] [id number] [address] [place] [address], [place] [address] Aug, [facility] [address] [id number] [address] [place] [address], [place] [address] Aug, [facility] [address] [id number] [address] [place] [address], [place] [address] July, [facility] [address] [id number] [address] [place] [address], [place] [address] Jun, [facility] [address] [id number] [address] [place] [address], [place] [address] Jun, [facility] [address] [id number] [address] [place] [address], [place] [address] Jun, [facility] [address] [id number] [address] [place] [address], [place] [address] Apr, [facility] [address] [id number] [address] [place] [address], [place] [address] Apr, [facility] [address] [id number] [address] [place] [address], [place] [address] Apr, [facility] [address] [id number] [address] [place] [address], [place] [address] Mar, [facility] [address] [id number] [address] [place] [address], [place] [address] 24 Mar, 2012 [facility] [address] [id number] [address] [place] [address] [address] 2012 [facility] [address] [id number] [address] [place] [address], [place] [address] 09 Mar, 2012 [facility] [address] [id number] [address] [place] [address], [place] [address] Mar, [facility] [address] [id number] [address] [place] [address], [place] [address] 14 Feb, 2012 [facility] [address] [id number] [address] [place] [address], [place] [address] 14 Feb, 2012 [facility] [address] [id number] [address] [place] [address], [place] [address] Jan, [facility] [address] [id number] [address] [place] [address], [place] [address] Jan, [facility] [address] [id number] [address] [place] [address], [place] [address] Jan, [facility] [address] [id number] [address] [place] [address], [place] [address] Jan, [facility] [address] [id number] [address] [place] [address], [place] [address] Jan, [facility] [address] [id number] [address] [place] [address], [place] [address] Jan, [facility] [address] [id number] [address] [place] [address], [place] [address] 06 Jan, 2012 [facility] [address] [id number] [address] [place] [address], [place] [address] 31 Dec, 2011 [facility] [address] [id number] [address] [place] [address], [place] [address] Dec, [facility] [address] [id number] [address] [place] [address], [place] [address] Dec, [facility] [address] [id number] [address] [place] [address], [place] [address] Dec, [facility] [address] [id number] [address] [place] [address], [place] [address] Dec, [facility] [address] [id number] [address] [place] [address], [place] [address] Dec, [facility] [address] [id number] [address] [place] [address], [place] [address] Dec, [facility] [address] [id number] [address] [place] [address], [place] [address] Dec, [facility] [address] [id number] [address] [place] [address], [place] [address] Dec, [facility] [address] [id number] [address] [place] [address], [place] [address] Dec, [facility] [address] [id number] [address] [place] [address], [place] [address] Oct, [facility] [address] [id number] [address] [place] [address], [place] [address] Oct, [facility] [address] [id number] [address] [place] [address], [place] [address] Aug, [facility] [address] [id number] [address] [place] [id number] Aug, [facility] [address] [id number] [address] [place] [address], [place] [address] July, [facility] [address] [id number] [address] [place] [address], [place] [address] Jun, [facility] [address] [id number] [address] [place] [address], [place] [address] Jun, [facility] [address] [id number] [address] [place] [address], [place] [address] May, [facility] [address] [id number] [address] [place] [address], [place] [address] Apr, [facility] [address] [id number] [address] [place] [address], [place] [address] 16 Apr, 2011 [facility] [address] [id number] [address] [place] [address], [place] [address] Mar, [facility] [address] [id number] [address] [place] [address], [place] [address] 16 Mar, 2011 [facility] [address] [id number] [address] [place] [address], [place] [address] 19 Feb, 2011 [facility] [address] [id number] [address] [place] [address], [place] [address] 15 Feb, 2011 [facility] [address] [id number] [address] [place] [address], [place] [address] Feb, [facility] [address] [id number] [address] [place] [address], [place] [address] 13 Feb, 2011 [facility] [address] [id number] [address] [place] [address], [place] [address] Jan, [facility] [address] [id number] [address] [place] [address], [place] [address] 17 Dec, 2010 [facility] [address] [id number] [address] [place] [address], [place] [address] 08 Feb, 2010 [facility] [address] [id number] [address] [place] [address], [place] [address] Feb, [facility] [address] [id number] [address] [place] [address], [place] [address] Feb, [facility] [address] [id number] [address] [place] [address], [place] [address] Feb, [facility] [address] [id number] [address] [place] [address], [place] [address] Dec, [facility] [place] [address] [id number] [address] [place] [address] Dec, [facility] [place] [address] [id number] [address] [place] [id number] Oct, [facility] [place] [address] [id number] [address] [place] [address] Jun, [facility] [place] [address] [id number] [address] [place] [id number] Feb, [facility] [place] [address] [id number] [address] [place] [id number] Feb, [facility] [place] [address] [id number] [address] [place] [id number] Feb, [facility] [place] [address] [facility] [id number] [address] [place] [id number] Dec, IMMUNIZATIONS No Known Immunizations SOCIAL HISTORY [...] 1985, 1987 Surgical History cholecystectomy Surgical History [place] Filter 06/2009 Surgical History Left leg exploratory surgery r/t clot 19 Surgical History left shoulder surgery 09/14/17 Surgical History lap band removed 12/2017 Surgical History gastic sleeve 01/2018 Surgical History Back surgery 2019 Surgical History Partial Thyroidectomy - left side 2019 Hospitalization History Ruptured Ovarian Cyst with abd bleed ing 11/2009 Hospitalization History Broken Back 06/2018
--- OUTSIDE RECORDS SUMMARY | 2019-10-19 12:24 | XMS REPORT ---
Author Author Mary Jane Mcginnis Doctor Organization [facility] Address Unknown Phone Unavailable Care Team Providers Care Hand I Tube Bender Name Role Phone Migration, Doctor Unavailable Unavailable PROBLEMS Type Condition ICD9-CM Code VFG34-HJ Code Onset Dates Condition S tatus SNOMED Code Problem Thyroid follicular adenoma D34 Act phylicia 527544404 Problem History of DVT (deep vein thrombosis) Z86.718 Active 045574945 Problem Factor V Leiden D68.51 Active 3070 61005 Problem snf (current) use of anticoagulants Z79.01 Active 834455341 Problem Hypertriglyceridemia E78.1 Active 510727411 Problem 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 Active 894042295 Problem Pelvic pain R10.2 Active 55122434 Problem Peripheral edema R60.9 Active 271 920938 Problem Moderate episode of recurrent major depressive disorder F33.1 Active 110334606 Problem Presence of IVC filter Z95.828 Active 288062733 Problem Vitamin D deficiency E55.9 Active 48309220 Problem Generalized anxiety disorder F41.1 A ctive 492703443 Problem Excessive daytime sleepiness G47.19 A ctive 283053074606 Problem Gastroesophageal reflux disease, esophagitis pre sence not specified K21.9 Active 396858365 Problem Thyroid nodule E04.1 Active 62894 5005 Problem Morbid obesity E66.01 Active 81142 6002 ALLERGIES No Information ENCOUNTERS Encounter Location Date Diagnosis [facility] [address] [facility] [id number] [address] [place] [id number] July, [facility] [address] [facility] [id number] [address] [place] [id number] 28 Jun, 2019 [place] [address] [facility] [id number] [address] [place] [address] 15 Jun, 2019 Back pain with history of sp inal surgery M54.9 [facility] [address] [facility] [id number] [address] [place] [id number] 12 Apr, 2019 Back pain with history of sp inal surgery M54.9 [facility] [address] [id number] [address] [place] [address] 11 Apr, 2019 [facility] [address] [facility] [id number] [address] [place] [address] 10 Apr, 2019 Gastroenteritis K52.9 ; Back pain with history of spinal surgery M54.9 ; Dermatofibroma of lower leg, unspecified laterality D23.70 and Morbid obesity E66.01 [place] [address] [id number] [address] [place] [address] Mar, [place] [address] [facility] [id number] [address] [place] [address] Jan, [place] [address] [id number] [address] [place] [address] Jan, [place] [address] [facility] [id number] [address] [place] [address] Dec, Encounter for weight managem ent Z76.89 [place] [address] [id number] [address] [place] [address] Dec, Encounter for weight managem ent Z76.89 and Screening mammogram, encounter for Z12.31 [place] [address] [facility] [id number] [address] [place] [address] Nov, Encounter for weight managem ent Z76.89 [place] [address] [id number] [address] [place] [address] Nov, Thyroid nodule E04.1 [place] [address] [facility] [id number] [address] [place] [address] Nov, Thyroid nodule E04.1 [place] [address] [facility] [id number] [address] [place] [address] Nov, Thyroid nodule E04.1 [place] [address] [facility] [id number] [address] [place] [address] Oct, Syncope, unspecified syncope type R55 and Encounter for weight management Z76.89 [facility] [address] [facility] [id number] [address] [place] [address] Oct, Morbid obesity E66.01 [facility] [address] [id number] [address] [place] [address] Oct, Hypertriglyceridemia E78.1 [facility] [address] [facility] [id number] [address] [place] [address] Oct, [facility] [address] [id number] [address] [place] [address] Oct, Hypertriglyceridemia E78.1 [place] [address] [facility] [id number] [address] [place] [address] Sep, Hypertriglyceridemia E78.1 a nd Vitamin D deficiency E55.9 [place] [address] [facility] [id number] [address] [place] [address] Sep, [facility] [address] [facility] [id number] [address] [place] [address] Sep, Morbid obesity E66.01 ; Mode rate episode of recurrent major depressive disorder F33.1 ; Hypertriglyceridemia E78.1 and Vitamin D deficiency E55.9 [facility] [address] [facility] [id number] [address] [place] [address] Aug, [facility] [address] [facility] [id number] [address] [place] [address] July, [facility] [address] [facility] [id number] [address] [place] [address] July, [facility] [address] [facility] [id number] [address] [place] [address] Jun, [facility] [address] [facility] [id number] [address] [place] [address] Jun, [facility] [address] [facility] [id number] [address] [place] [address] Jun, Closed compression fracture of L3 lumbar vertebra with routine healing, subsequent encounter S32.030D and Drug-induced constipation K59.03 [facility] [address] [facility] [id number] [address] [place] [address] Jun, [facility] [address] [facility] [id number] [address] [place] [address] Jun, [facility] [address] [facility] [id number] [place] [address] Apr, [facility] [address] [facility] [id number] [place] [address] Apr, Morbid obesity E66.01 [facility] [address] [facility] [id number] [place] [address] Apr, Morbid obesity E66.01 ; Hype rtriglyceridemia E78.1 ; Gastroesophageal reflux disease, esophagitis presence not specified K21.9 and Joint pain M25.50 [facility] [id number] [place] [address] Feb, [facility] [address] [address] Feb, [facility] [address] [place] [id number] [place] [address] Jan, Acute bacterial conjunctivit is H10.30 [facility] [address] [place] [id number] [address] [place] [address] Dec, [facility] [address] [facility] [id number] [address] [place] [address] Dec, [facility] [address] [facility] [id number] [address] [place] [address] Nov, [facility] [address] [place] [id number] [place] [address] 07 Nov, 2017 Obstructive sleep apnea G47. 33 ; Morbid obesity E66.01 and Gastroesophageal reflux disease, esophagitis presence not specified K21.9 [facility] [address] [id number] [address] [place] [id number] 06 Nov, 2017 Encounter for examination of eyes and vision without abnormal findings Z01.00 [facility] [address] [facility] [id number] [address] [place] [address] 31 Oct, 2017 Thyroid nodule E04.1 and Scr eening for breast cancer Z12.31 [facility] [address] [place] [id number] [address] [place] [address] 23 Oct, 2017 History of DVT (deep vein th rombosis) Z86.718 ; Thyroid nodule E04.1 and Gastroesophageal reflux disease, esophagitis presence not specified K21.9 [place] [address] [place] [id number] [place] [address] Oct, [place] [address] [place] [id number] [place] [address] Sep, [place] [address] [place] [id number] [place] [address] Aug, [place] [address] [place] [id number] [address] [place] [address] Aug, [place] [address] [place] [id number] [place] [address] Aug, Acute pain of left shoulder M25.512 and Thyroid nodule E04.1 [place] [address] [place] [id number] [address] [place] [address] July, Superior glenoid labrum lesi on of left shoulder, subsequent encounter S43.432D [facility] [address] [place] [id number] [address] [place] [address] Jun, History of DVT (deep vein th rombosis) Z86.718 [facility] [address] [place] [id number] [address] [place] [address] Jun, History of DVT (deep vein th rombosis) Z86.718 [facility] [address] [place] [id number] [address] [place] [address] Jun, Impingement syndrome, should er, left M75.42 [place] [address] [facility] [id number] [address] [place] [address] May, Subacromial bursitis of left shoulder joint M75.52 [place] [address] [facility] [id number] [address] [place] [address] May, [place] [address] [facility] [id number] [address] [place] [address] May, Hypertriglyceridemia E78.1 ; terminal computer 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.01 and Excessive daytime sleepiness G47.19 [place] [address] [facility] [id number] [address] [place] [address] May, History of DVT (deep vein th rombosis) Z86.718 ; Generalized anxiety disorder F41.1 ; Hypertriglyceridemia E78.1 ; terminal computer 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.01 ; Subacromial bursitis of left shoulder joint M75.52 and Excessive daytime sleepiness G47.19 [place] [address] [id number] [address] [place] [address] May, [place] [address] [facility] [id number] [address] [place] [address] May, terminal computer operator (current) use of a nticoagulants Z79.01 [place] [address] [facility] [id number] [address] [place] [address] Apr, snf (current) use of a nticoagulants Z79.01 [place] [address] [id number] [address] [place] [address] Apr, snf (current) use of a nticoagulants Z79.01 [place] [address] [facility] [id number] [address] [place] [address] Apr, terminal computer operator (current) use of a nticoagulants Z79.01 [place] [address] [id number] [address] [place] [address] 16 Apr, 2017 [facility] [address] [id number] [address] [place] [address] Apr, snf (current) use of a nticoagulants Z79.01 [facility] [address] [id number] [address] [place] [address] 13 Apr, 2017 terminal computer operator (current) use of a nticoagulants Z79.01 [facility] [address] [id number] [address] [place] [address] Apr, terminal computer operator (current) use of a nticoagulants Z79.01 [facility] [address] [id number] [address] [place] [address] Apr, snf (current) use of a nticoagulants Z79.01 [facility] [address] [id number] [address] [place] [address] Apr, snf (current) use of a nticoagulants Z79.01 [facility] [address] [id number] [address] [place] [address] Apr, terminal computer operator (current) use of a nticoagulants Z79.01 [facility] [address] [id number] [address] [place] [address] Mar, terminal computer operator (current) use of a nticoagulants Z79.01 [facility] [address] [id number] [address] [place] [address] Mar, [facility] [address] [id number] [address] [place] [address] Mar, terminal computer operator (current) use of a nticoagulants Z79.01 [facility] [address] [id number] [address] [place] [id number] Jan, Dental examination Z01.20 [facility] [address] [id number] [address] [place] [address] [id number] Jan, [facility] [address] [id number] [address] [place] [address] Jan, snf (current) use of a nticoagulants Z79.01 [facility] [address] [id number] [address] [place] [address] Jan, History of DVT (deep vein th rombosis) Z86.718 [facility] [address] [id number] [address] [place] [address] Jan, Generalized anxiety disorder F41.1 and Peripheral edema R60.9 [place] [address] [id number] [address] [place] [address] Nov, History of DVT (deep vein th rombosis) Z86.718 [facility] [address] [id number] [address] [place] [address] Nov, terminal computer operator (current) use of a nticoagulants Z79.01 [facility] [address] [id number] [address] [place] [address] Nov, Acute non-recurrent maxillar y sinusitis J01.00 [facility] [address] [id number] [address] [place] [address] Oct, snf (current) use of a nticoagulants Z79.01 [facility] [address] [id number] [address] [place] [address] Oct, Personal history of venous t hrombosis and embolism Z86.718 [facility] [address] [id number] [address] [place] [address] Sep, [facility] [address] [id number] [address] [place] [address] Sep, Personal history of venous t hrombosis and embolism Z86.718 [facility] [address] [facility] [id number] [address] [place] [address] Sep, terminal computer operator (current) use of a nticoagulants Z79.01 [facility] [address] [id number] [address] [place] [address] Sep, snf (current) use of a nticoagulants Z79.01 [facility] [address] [facility] [id number] [address] [place] [address] Sep, Generalized anxiety disorder F41.1 and History of DVT (deep vein thrombosis) Z86.718 [place] [address] [facility] [id number] [address] [place] [address] Aug, History of DVT (deep vein th rombosis) Z86.718 ; Generalized anxiety disorder F41.1 ; snf (current) use of anticoagulants Z79.01 ; Pelvic pain R10.2 ; Hypertriglyceridemia E78.1 ; Excessive daytime sleepiness G47.19 ; Colon cancer screening Z12.11 ; Screening for breast cancer Z12.39 ; Peripheral edema R60.9 and Gastroesophageal reflux disease, esophagitis presence not specified K21.9 [place] [address] [facility] [id number] [address] [place] [address] Aug, [place] [address] [facility] [id number] [address] [place] [address] July, [place] [address] [facility] [id number] [address] [place] [address] July, History of DVT (deep vein th rombosis) Z86.718 [place] [address] [id number] [address] [place] [address] Jun, Generalized anxiety disorder F41.1 [place] [address] [id number] [address] [place] [address] Jun, History of DVT (deep vein th rombosis) Z86.718 [place] [address] [facility] [id number] [address] [place] [address] Jun, History of DVT (deep vein th rombosis) Z86.718 [place] [address] [facility] [id number] [address] [place] [address] Jun, History of DVT (deep vein th rombosis) Z86.718 [facility] [address] [facility] [id number] [address] [place] [address] Jun, History of DVT (deep vein th rombosis) Z86.718 [facility] [address] [place] [id number] [address] [place] [address] May, History of DVT (deep vein th rombosis) Z86.718 [place] [address] [facility] [id number] [address] [place] [address] May, snf (current) use of a nticoagulants Z79.01 [place] [address] [place] [id number] [address] [place] [address] May, terminal computer operator (current) use of a nticoagulants Z79.01 [facility] [id number] [place] [address] May, History of DVT (deep vein th rombosis) Z86.718 [facility] [address] [place] [id number] [address] [place] [address] Apr, Bacterial conjunctivitis of left eye H10.9 and H/O motion sickness Z87.898 [facility] [address] [place] [id number] [address] [place] [address] Apr, History of DVT (deep vein th rombosis) Z86.718 [facility] [address] [place] [id number] [address] [place] [address] Apr, History of DVT (deep vein th rombosis) Z86.718 [facility] [address] [place] [id number] [address] [place] [address] Apr, History of DVT (deep vein th rombosis) Z86.718 [facility] [address] [place] [id number] [address] [place] [address] 14 Apr, 2016 snf (current) use of a nticoagulants Z79.01 [facility] [address] [id number] [address] [place] [address] Mar, [facility] [address] [id number] [address] [place] [address] Mar, snf (current) use of a nticoagulants Z79.01 [facility] [address] [id number] [address] [place] [address] Mar, Hypertriglyceridemia E78.1 a nd terminal computer 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.01 [facility] [address] [id number] [address] [place] [address] Feb, terminal computer operator (current) use of a nticoagulants Z79.01 [place] [address] [id number] [address] [place] [address] Feb, snf (current) use of a nticoagulants Z79.01 [facility] [address] [id number] [address] [place] [address] Feb, terminal computer operator (current) use of a nticoagulants Z79.01 [facility] [address] [id number] [address] [place] [address] Dec, [facility] [address] [id number] [address] [place] [address] Nov, [facility] [address] [id number] [address] [place] [address] 13 Nov, 2015 History of DVT (deep vein th rombosis) Z86.718 ; Tremulousness R25.1 ; Generalized anxiety disorder F41.1 ; Peripheral edema R60.9 and Hypertriglyceridemia E78.1 [facility] [address] [id number] [address] [place] [address] Oct, History of DVT (deep vein th rombosis) Z86.718 [place] [address] [id number] [address] [place] [address] Oct, [place] [address] [facility] [id number] [address] [place] [address] Sep, History of DVT (deep vein th rombosis) Z86.718 [place] [address] [facility] [id number] [address] [place] [address] Sep, terminal computer operator (current) use of a nticoagulants Z79.01 [place] [address] [facility] [id number] [address] [place] [address] July, [place] [address] [facility] [id number] [address] [place] [address] July, terminal computer operator (current) use of a nticoagulants Z79.01 [place] [address] [facility] [id number] [address] [place] [address] July, snf (current) use of a nticoagulants Z79.01 [place] [address] [facility] [id number] [address] [place] [address] Jun, terminal computer operator (current) use of a nticoagulants Z79.01 [facility] [place] [address] [address] [facility] [id number] [address] [place] [address] Jun, Coccyx pain M53.3 ; Encounte r for therapeutic drug level monitoring Z51.81 and terminal computer operator current use 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.01 [place] [address] [facility] [id number] [address] [place] [address] May, Abnormal mammogram R92.8 [facility] [place] [address] [facility] [id number] [address] [place] [address] May, [facility] [place] [address] [address] [facility] [id number] [address] [place] [address] May, Acute vaginitis N76.0 and En counter for other screening for malignant neoplasm of breast Z12.39 [place] [address] [place] [id number] [address] [place] [address] Apr, [facility] [address] [facility] [id number] [address] [place] [address] Apr, [facility] [address] [facility] [id number] [address] [place] [address] Apr, Peripheral edema R60.9 [facility] [address] [facility] [id number] [address] [place] [address] Apr, snf (current) use of a nticoagulants Z79.01 [facility] [address] [id number] [address] [place] [address] Apr, Peripheral edema R60.9 and L jose martin term (current) 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 Z79.01 [facility] [address] [facility] [id number] [address] [place] [address] Apr, snf (current) use of a nticoagulants Z79.01 [facility] [address] [id number] [address] [place] [address] Apr, [facility] [address] [facility] [id number] [address] [place] [address] Apr, snf (current) use of a nticoagulants Z79.01 [facility] [address] [facility] [id number] [address] [place] [address] Apr, Peripheral edema R60.9 [facility] [address] [facility] [id number] [address] [place] [address] Mar, terminal computer operator (current) use of a nticoagulants Z79.01 [facility] [address] [id number] [address] [place] [id number] Mar, snf (current) use of a nticoagulants Z79.01 and Hypertriglyceridemia E78.1 [facility] [address] [facility] [id number] [address] [place] [id number] Mar, snf (current) use of a nticoagulants Z79.01 [facility] [address] [id number] [address] [place] [phone] Mar, terminal computer operator (current) use of a nticoagulants Z79.01 [facility] [address] [id number] [address] [place] [phone] Mar, [facility] [address] [id number] [address] [place] [phone] Mar, terminal computer operator (current) use of a nticoagulants Z79.01 ; Hypertriglyceridemia E78.1 ; Personal history of venous thrombosis and embolism Z86.718 and Lump R22.9 [facility] [address] [id number] [address] [place] [phone] Mar, Personal history of venous t hrombosis and embolism Z86.718 [facility] [address] [id number] [address] [place] [phone] Mar, Personal history of venous t hrombosis and embolism Z86.718 [place] [address] [id number] [address] [place] [id number] Mar, [facility] [address] [id number] [address] [place] [id number] Dec, Personal history of venous t hrombosis and embolism Z86.718 [facility] [facility] [address] [id number] [address] [place] [id number] Dec, Personal history of venous t hrombosis and embolism V12.51 [facility] [address] [id number] [address] [place] [phone] Nov, Personal history of venous t hrombosis and embolism V12.51 [place] [facility] [address] [id number] [address] [place] [id number] Nov, Personal history of venous t hrombosis and embolism V12.51 [place] [address] [id number] [address] [place] [address] Nov, Personal history of venous t hrombosis and embolism V12.51 [facility] [address] [id number] [address] [place] [id number] Nov, Personal history of venous t hrombosis and embolism V12.51 [facility] [address] [id number] [address] [place] [address] Nov, [facility] [address] [id number] [address] [place] [address] Oct, Dysuria 788.1 [place] [address] [id number] [address] [place] [address] Oct, Personal history of venous t hrombosis and embolism V12.51 [place] [address] [id number] [address] [place] [address] Oct, [facility] [address] [id number] [address] [place] [address] Oct, Personal history of venous t hrombosis and embolism V12.51 [place] [address] [id number] [address] [place] [address] Sep, Personal history of venous t hrombosis and embolism V12.51 [place] [address] [id number] [address] [place] [address] Sep, Personal history of venous t hrombosis and embolism V12.51 [facility] [address] [id number] [address] [place] [address] Aug, Personal history of venous t hrombosis and embolism V12.51 [place] [address] [id number] [address] [place] [address] Aug, Personal history of venous t hrombosis and embolism V12.51 [facility] [address] [id number] [address] [place] [address] Aug, Personal history of venous t hrombosis and embolism V12.51 [facility] [address] [id number] [address] [place] [address] July, Generalized anxiety disorder 300.02 ; Abdominal pain, left lower quadrant 789.04 and Personal history of venous thrombosis and embolism V12.51 [facility] [address] [id number] [address] [place] [id number] 14 Jun, 2014 [facility] [address] [id number] [address] [place] [address] Jun, [facility] [address] [id number] [address] [place] [id number] May, [facility] [address] [id number] [address] [place] [address] May, [facility] [address] [id number] [address] [place] [id number] May, [facility] [address] [id number] [address] [place] [id number] May, [facility] [address] [id number] [address] [place] [id number] May, [facility] [address] [id number] [address] [place] [id number] May, [facility] [address] [id number] [address] [place] [address] May, [facility] [address] [id number] [address] [place] [id number] May, [facility] [address] [id number] [address] [place] [id number] Apr, [facility] [address] [id number] [address] [place] [address] Apr, [facility] [address] [id number] [address] [place] [id number] Apr, [facility] [address] [id number] [address] [place] [address] Apr, [facility] [address] [id number] [address] [place] [address], [place] [address] Apr, [facility] [address] [id number] [address] [place] [address], [place] [address] Mar, [facility] [address] [id number] [address] [place] [address], [place] [address] Mar, [facility] [address] [id number] [address] [place] [address], [place] [address] Mar, [facility] [address] [id number] [address] [place] [address], [place] [address] Mar, [facility] [address] [id number] [address] [place] [address], [place] [address] Mar, [facility] [address] [id number] [address] [place] [address], [place] [address] Mar, [facility] [address] [id number] [address] [place] [address], [place] [address] Feb, [facility] [address] [id number] [address] [place] [address], [place] [address] Feb, [facility] [address] [id number] [address] [place] [address], [place] [address] Feb, [facility] [address] [id number] [address] [place] [address], [place] [address] Feb, [facility] [address] [id number] [address] [place] [address], [place] [address] Feb, [facility] [address] [id number] [address] [place] [address], [place] [address] Feb, [facility] [address] [id number] [address] [place] [address], [place] [address] Feb, [facility] [address] [id number] [address] [place] [address], [place] [address] Feb, [facility] [address] [id number] [address] [place] [address], [place] [address] Feb, [facility] [address] [id number] [address] [place] [address], [place] [address] Feb, [facility] [address] [id number] [address] [place] [address], [place] [address] Jan, [facility] [address] [id number] [address] [place] [address], [place] [address] Jan, [facility] [address] [id number] [address] [place] [address], [place] [address] Jan, [facility] [address] [id number] [address] [place] [address], [place] [address] Jan, [facility] [address] [id number] [address] [place] [address], [place] [address] Jan, [facility] [address] [id number] [address] [place] [address], [place] [address] Jan, [facility] [address] [id number] [address] [place] [address], [place] [address] Jan, [facility] [address] [id number] [address] [place] [address], [place] [address] Jan, [facility] [address] [id number] [address] [place] [address], [place] [address] Jan, [facility] [address] [id number] [address] [place] [address], [place] [address] Jan, [facility] [address] [id number] [address] [place] [address], [place] [address] Dec, [facility] [address] [id number] [address] [place] [address], [place] [address] Dec, [facility] [address] [id number] [address] [place] [address], [place] [address] Dec, [facility] [address] [id number] [address] [place] [address], [place] [address] Dec, [facility] [address] [id number] [address] [place] [address], [place] [address] Dec, [facility] [address] [id number] [address] [place] [address], [place] [address] Dec, [facility] [address] [id number] [address] [place] [address], [place] [address] Dec, [facility] [address] [id number] [address] [place] [address], [place] [address] Dec, [facility] [address] [id number] [address] [place] [address], [place] [address] Dec, [facility] [address] [id number] [address] [place] [address], [place] [address] Dec, [facility] [address] [id number] [address] [place] [address], [place] [address] Dec, [facility] [address] [id number] [address] [place] [address], [place] [address] Dec, [facility] [address] [id number] [address] [place] [address], [place] [address] Dec, [facility] [address] [id number] [address] [place] [address], [place] [address] Dec, [facility] [address] [id number] [address] [place] [address], [place] [address] Dec, [facility] [address] [id number] [address] [place] [address] Nov, [facility] [address] [id number] [address] [place] [address], [place] [address] 30 Nov, 2013 [facility] [address] [id number] [address] [place] [address], [place] [address] Nov, [facility] [address] [id number] [address] [place] [address], [place] [address] Nov, [facility] [address] [id number] [facility] [place] [address] 24 Sep, 2013 [facility] [address] [id number] [address] [place] [address], [place] [address] 24 Sep, 2013 [facility] [address] [id number] [address] [place] [address], [place] [address] 23 Sep, 2013 [facility] [address] [id number] [address] [place] [address], [place] [address] 23 Sep, 2013 [facility] [address] [id number] [address] [place] [address], [place] [address] 18 Nov, 2013 [facility] [address] [id number] [address] [place] [address], [place] [address] 18 Nov, [address] [facility] [address] [id number] [address] [place] [address], [place] [address] 17 Nov, [address] [facility] [address] [id number] [address] [place] [address], [place] [address] 17 Nov, [address] [facility] [address] [id number] [address] [place] [address], [place] [address] 11 Nov, [address] [facility] [address] [id number] [address] [place] [address], [place] [address] 11 Nov, [address] [facility] [address] [id number] [address] [place] [address], [place] [address] 10 Nov, [address] [facility] [address] [id number] [address] [place] [address], [place] [address] 10 Nov, [address] [facility] [address] [id number] [address] [place] [address], [place] [address] 08 Nov, 2013 [facility] [address] [id number] [address] [place] [address], [place] [address] 08 Nov, [address] [facility] [address] [id number] [address] [place] [address], [place] [address] 22 Sep, [address] [facility] [address] [id number] [address] [place] [address], [place] [address] Sep, [facility] [address] [id number] [address] [place] [address], [place] [address] Sep, [facility] [address] [id number] [address] [place] [address], [place] [address] Sep, [facility] [address] [id number] [address] [place] [address], [place] [address] Sep, [facility] [address] [id number] [address] [place] [address], [place] [address] Sep, [facility] [address] [id number] [address] [place] [address], [place] [address] Aug, [facility] [address] [id number] [address] [place] [address], [place] [address] Aug, [facility] [address] [id number] [address] [place] [address], [place] [address] Aug, [facility] [address] [id number] [address] [place] [address], [place] [address] Aug, [facility] [address] [id number] [address] [place] [address], [place] [address] Aug, [facility] [address] [id number] [address] [place] [address], [place] [address] Aug, [facility] [address] [id number] [address] [place] [address], [place] [address] Aug, [facility] [address] [id number] [address] [place] [address], [place] [address] Aug, [facility] [address] [id number] [address] [place] [address], [place] [address] Aug, [facility] [address] [id number] [address] [place] [address], [place] [address] Aug, [facility] [address] [id number] [address] [place] [address], [place] [address] Aug, [facility] [address] [id number] [address] [place] [address], [place] [address] July, [facility] [address] [id number] [address] [place] [address], [place] [address] July, [facility] [address] [id number] [address] [place] [address], [place] [address] Jun, [facility] [address] [id number] [address] [place] [address], [place] [address] Jun, [facility] [address] [id number] [address] [place] [address], [place] [address] Jun, [facility] [address] [id number] [address] [place] [address], [place] [address] Jun, [facility] [address] [id number] [address] [place] [address], [place] [address] Jun, [facility] [address] [id number] [address] [place] [address], [place] [address] Jun, [facility] [address] [id number] [address] [place] [address], [place] [address] Jun, [facility] [address] [id number] [address] [place] [address], [place] [address] Jun, [facility] [address] [id number] [address] [place] [address], [place] [address] Jun, [facility] [address] [id number] [address] [place] [address], [place] [address] Jun, [facility] [address] [id number] [address] [place] [address], [place] [address] Jun, [facility] [address] [id number] [address] [place] [address], [place] [address] Jun, [facility] [address] [id number] [address] [place] [address], [place] [address] May, [facility] [address] [id number] [address] [place] [address], [place] [address] May, [facility] [address] [id number] [facility] [place] [address] 20 May, 2013 [facility] [address] [id number] [facility] [place] [address] May, [facility] [address] [id number] [facility] [place] [address] May, [facility] [address] [id number] [address] [place] [address], [place] [address] May, [facility] [address] [id number] [address] [place] [address], [place] [address] May, [facility] [address] [id number] [address] [place] [address], [place] [address] May, [facility] [address] [id number] [address] [place] [address], [place] [address] May, [facility] [address] [id number] [address] [place] [address], [place] [address] May, [facility] [address] [id number] [address] [place] [address], [place] [address] May, [facility] [address] [id number] [address] [place] [address], [place] [address] May, [facility] [address] [id number] [address] [place] [address], [place] [address] Apr, [facility] [address] [id number] [address] [place] [address], [place] [address] Apr, [facility] [address] [id number] [address] [place] [address], [place] [address] Apr, [facility] [address] [id number] [address] [place] [address], [place] [address] Apr, [facility] [address] [id number] [address] [place] [address], [place] [address] Apr, [facility] [address] [id number] [address] [place] [address], [place] [address] Apr, [facility] [address] [id number] [address] [place] [address], [place] [address] Apr, [facility] [address] [id number] [address] [place] [address], [place] [address] Apr, [facility] [address] [id number] [address] [place] [address], [place] [address] Apr, [facility] [address] [id number] [address] [place] [address], [place] [address] Apr, [facility] [address] [id number] [address] [place] [address], [place] [address] Apr, [facility] [address] [id number] [address] [place] [address], [place] [address] Apr, [facility] [address] [id number] [address] [place] [address], [place] [address] Apr, [facility] [address] [id number] [address] [place] [address], [place] [address] Apr, [facility] [address] [id number] [address] [place] [address], [place] [address] Apr, [facility] [address] [id number] [address] [place] [address], [place] [address] Apr, [facility] [address] [id number] [address] [place] [address], [place] [address] Apr, [facility] [address] [id number] [address] [place] [address], [place] [address] Jan, [facility] [address] [id number] [address] [place] [address], [place] [address] Jan, [facility] [address] [id number] [address] [place] [address], [place] [address] Jan, [facility] [address] [id number] [address] [place] [id number] Jan, [facility] [address] [id number] [address] [place] [address], [place] [address] Jan, [facility] [address] [id number] [address] [place] [address], [place] [address] Jan, [facility] [address] [id number] [address] [place] [address], [place] [address] Jan, [facility] [address] [id number] [address] [place] [address], [place] [address] Dec, [facility] [address] [id number] [address] [place] [address], [place] [address] Dec, [facility] [address] [id number] [address] [place] [address], [place] [address] Dec, [facility] [address] [id number] [address] [place] [address], [place] [address] Nov, [facility] [address] [id number] [address] [place] [address], [place] [address] Nov, [facility] [address] [id number] [address] [place] [address], [place] [address] 05 Nov, 2012 [facility] [address] [id number] [address] [place] [address], [place] [address] Nov, [facility] [address] [id number] [address] [place] [address], [place] [address] Oct, [facility] [address] [id number] [address] [place] [id number] Oct, [facility] [address] [id number] [address] [place] [address], [place] [address] Oct, [facility] [address] [id number] [address] [place] [address], [place] [address] Oct, [facility] [address] [id number] [address] [place] [id number] Oct, [facility] [address] [id number] [address] [place] [address], [place] [address] Sep, [facility] [address] [id number] [address] [place] [address], [place] [id number] Sep, [facility] [address] [id number] [address] [place] [address], [place] [id number] Sep, [facility] [address] [id number] [address] [place] [address], [place] [id number] Sep, [facility] [address] [id number] [address] [place] [address], [place] [id number] Sep, [facility] [address] [id number] [address] [place] [address], [place] [address] Sep, [facility] [address] [id number] [address] [place] [address], [place] [id number] Sep, [facility] [address] [id number] [address] [place] [address], [place] [id number] Aug, [facility] [address] [id number] [address] [place] [address], [place] [id number] Aug, [facility] [address] [id number] [address] [place] [address], [place] [id number] July, [facility] [address] [id number] [address] [place] [address], [place] [id number] Jun, [facility] [address] [id number] [address] [place] [address], [place] [id number] Jun, [facility] [address] [id number] [address] [place] [address], [place] [id number] Jun, [facility] [address] [id number] [address] [place] [address], [place] [id number] Apr, [facility] [address] [id number] [address] [place] [address], [place] [address] Apr, [facility] [address] [id number] [address] [place] [address], [place] [id number] Apr, [facility] [address] [id number] [address] [place] [address], [place] [address] Mar, [facility] [address] [id number] [address] [place] [address], [place] [id number] 24 Mar, 2012 [facility] [address] [id number] [address] [place] [address], [place] [id number] 2012 [facility] [address] [id number] [address] [place] [address], [place] [id number] 09 Mar, 2012 [facility] [address] [id number] [address] [place] [address], [place] [address] Mar, [facility] [address] [id number] [address] [place] [address], [place] [id number] 14 Feb, 2012 [facility] [address] [id number] [address] [place] [address], [place] [id number] 14 Feb, [address] [facility] [address] [id number] [address] [place] [address], [place] [id number] Jan, [facility] [address] [id number] [address] [place] [address], [place] [address] Jan, [facility] [address] [id number] [address] [place] [address], [place] [id number] Jan, [facility] [address] [id number] [address] [place] [address], [place] [id number] Jan, [facility] [address] [id number] [address] [place] [address], [place] [id number] Jan, [facility] [address] [id number] [address] [place] [address], [place] [id number] Jan, [facility] [address] [id number] [address] [place] [address], [place] [id number] 06 Jan, 2012 [facility] [address] [id number] [address] [place] [address], [place] [id number] 31 Dec, 2011 [facility] [address] [id number] [address] [place] [address], [place] [id number] Dec, [facility] [address] [id number] [address] [place] [address], [place] [id number] Dec, [facility] [address] [id number] [address] [place] [address], [place] [address] Dec, [facility] [address] [id number] [address] [place] [address], [place] [id number] Dec, [facility] [address] [id number] [address] [place] [address], [place] [address] Dec, [facility] [address] [id number] [address] [place] [address], [place] [address] Dec, [facility] [address] [id number] [address] [place] [address], [place] [address] Dec, [facility] [address] [id number] [address] [place] [address], [place] [address] Dec, [facility] [address] [id number] [address] [place] [address], [place] [address] Dec, [facility] [address] [id number] [address] [place] [address], [place] [id number] Oct, [facility] [address] [id number] [address] [place] [address], [place] [address] Oct, [facility] [address] [id number] [address] [place] [address], [place] [address] Aug, [facility] [address] [id number] [address] [place] [id number] Aug, [facility] [address] [id number] [address] [place] [address], [place] [address] July, [facility] [address] [id number] [address] [place] [address], [place] [address] Jun, [facility] [address] [id number] [address] [place] [address], [place] [address] Jun, [facility] [address] [id number] [address] [place] [address], [place] [address] May, [facility] [address] [id number] [address] [place] [address], [place] [address] Apr, [facility] [address] [id number] [address] [place] [address], [place] [id number] 16 Apr, 2011 [facility] [address] [id number] [address] [place] [address], [place] [address] Mar, [facility] [address] [id number] [address] [place] [address], [place] [id number] 16 Mar, 2011 [facility] [address] [id number] [address] [place] [address], [place] [id number] 19 Feb, 2011 [facility] [address] [id number] [address] [place] [address], [place] [id number] 15 Feb, 2011 [facility] [address] [id number] [address] [place] [address], [place] [address] Feb, [facility] [address] [id number] [address] [place] [address], [place] [id number] 13 Feb, 2011 [facility] [address] [id number] [address] [place] [address], [place] [address] Jan, [facility] [address] [id number] [address] [place] [address], [place] [id number] 17 Dec, 2010 [facility] [address] [id number] [address] [place] [address], [place] [address] 08 Feb, 2010 [facility] [address] [id number] [address] [place] [address], [place] [id number] Feb, [facility] [address] [id number] [address] [place] [address], [place] [address] Feb, [facility] [address] [id number] [address] [place] [address], [place] [address] Feb, [facility] [address] [id number] [address] [place] [address], [place] [address] Dec, [facility] [address] [id number] [address] [place] [id number] Dec, [facility] [address] [id number] [address] [place] [id number] Oct, [facility] [address] [id number] [address] [place] [id number] Jun, [facility] [address] [id number] [address] [place] [id number] Feb, [facility] [address] [id number] [address] [place] [id number] Feb, [facility] [address] [id number] [address] [place] [id number] Feb, [facility] [address] [facility] [id number] [address] [place] [id number] Dec, IMMUNIZATIONS No Known Immunizations SOCIAL HISTORY [...] 1985, 1987 Surgical History cholecystectomy Surgical History [place] Filter 06/2009 Surgical History Left leg exploratory surgery r/t clot 19 Surgical History left shoulder surgery 09/14/17 Surgical History lap band removed 12/2017 Surgical History gastic sleeve 01/2018 Surgical History Back surgery 2019 Surgical History Partial Thyroidectomy - left side 2019 Hospitalization History Ruptured Ovarian Cyst with abd bleed ing 11/2009 Hospitalization History Broken Back 06/2018
--- OUTSIDE RECORDS SUMMARY | 2019-10-19 12:24 | XMS REPORT ---
Author Author Mary Jane Mcginnis Doctor Organization [facility] Address Unknown Phone Unavailable Care Team Providers Care Mortgage Loan Interviewer Name Role Phone Migration, Doctor Unavailable Unavailable PROBLEMS Type Condition ICD9-CM Code BXT03-ZC Code Onset Dates Condition S tatus SNOMED Code Problem Thyroid follicular adenoma D34 Act phylicia 834398588 Problem History of DVT (deep vein thrombosis) Z86.718 Active 002234571 Problem Factor V Leiden D68.51 Active 3070 75128 Problem care home (current) use of anticoagulants Z79.01 Active 011787756 Problem Hypertriglyceridemia E78.1 Active 494888448 Problem 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 Active 700820971 Problem Pelvic pain R10.2 Active 04647714 Problem Peripheral edema R60.9 Active 271 678350 Problem Moderate episode of recurrent major depressive disorder F33.1 Active 989780732 Problem Presence of IVC filter Z95.828 Active 176393024 Problem Vitamin D deficiency E55.9 Active 56324206 Problem Generalized anxiety disorder F41.1 A ctive 487808313 Problem Excessive daytime sleepiness G47.19 A ctive 573050098378 Problem Gastroesophageal reflux disease, esophagitis pre sence not specified K21.9 Active 426145091 Problem Thyroid nodule E04.1 Active 09056 5005 Problem Morbid obesity E66.01 Active 61310 6002 ALLERGIES No Information ENCOUNTERS Encounter Location Date Diagnosis [facility], [place] [address] [facility] [id number] [address] [place] [phone] July, [facility], [place] [address] [facility] [id number] [address] [place] [phone] 28 Jun, 2019 [place] [address] [facility] [id number] [address] [place] [phone] 15 Jun, 2019 Back pain with history of sp inal surgery M54.9 [facility], [place] [address] [facility] [id number] [address] [place] [phone] 12 Apr, 2019 Back pain with history of sp inal surgery M54.9 [facility], [place] [address] [id number] [address] [place] [phone] 11 Apr, 2019 [facility], [place] [address] [facility] [id number] [address] [place] [phone] 10 Apr, 2019 Gastroenteritis K52.9 ; Back pain with history of spinal surgery M54.9 ; Dermatofibroma of lower leg, unspecified laterality D23.70 and Morbid obesity E66.01 [place] [address] [id number] [address] [place] [phone] Mar, [place] [address] [facility] [id number] [address] [place] [phone] Jan, [place] [address] [id number] [address] [place] [phone] Jan, [place] [address] [facility] [id number] [address] [place] [phone] Dec, Encounter for weight managem ent Z76.89 [place] [address] [id number] [address] [place] [phone] Dec, Encounter for weight managem ent Z76.89 and Screening mammogram, encounter for Z12.31 [place] [address] [facility] [id number] [address] [place] [phone] Nov, Encounter for weight managem ent Z76.89 [place] [address] [id number] [address] [place] [phone] Nov, Thyroid nodule E04.1 [place] [address] [facility] [id number] [address] [place] [phone] Nov, Thyroid nodule E04.1 [place] [address] [facility] [id number] [address] [place] [phone] Nov, Thyroid nodule E04.1 [place] [address] [facility] [id number] [address] [place] [phone] Oct, Syncope, unspecified syncope type R55 and Encounter for weight management Z76.89 [facility], [place] [address] [facility] [id number] [address] [place] [phone] Oct, Morbid obesity E66.01 [facility], [place] [address] [id number] [address] [place] [phone] Oct, Hypertriglyceridemia E78.1 [facility], [place] [address] [facility] [id number] [address] [place] [phone] Oct, [facility], [place] [address] [id number] [address] [place] [phone] Oct, Hypertriglyceridemia E78.1 [place] [address] [facility] [id number] [address] [place] [phone] Sep, Hypertriglyceridemia E78.1 a nd Vitamin D deficiency E55.9 [place] [address] [facility] [id number] [address] [place] [phone] Sep, [facility], [place] [address] [facility] [id number] [address] [place] [phone] Sep, Morbid obesity E66.01 ; Mode rate episode of recurrent major depressive disorder F33.1 ; Hypertriglyceridemia E78.1 and Vitamin D deficiency E55.9 [facility], [place] [address] [facility] [id number] [address] [place] [phone] Aug, [facility], [place] [address] [facility] [id number] [address] [place] [phone] July, [facility], [place] [address] [facility] [id number] [address] [place] [phone] July, [facility], [place] [address] [facility] [id number] [address] [place] [phone] Jun, [facility], [place] [address] [facility] [id number] [address] [place] [phone] Jun, [facility], [place] [address] [facility] [id number] [address] [place] [phone] Jun, Closed compression fracture of L3 lumbar vertebra with routine healing, subsequent encounter S32.030D and Drug-induced constipation K59.03 [facility], [place] [address] [facility] [id number] [address] [place] [phone] Jun, [facility], [place] [address] [facility] [id number] [address] [place] [phone] Jun, [facility], [place] [address] [facility] [id number] [place] [phone] Apr, [facility], [place] [address] [facility] [id number] [place] [phone] Apr, Morbid obesity E66.01 [facility], [place] [address] [facility] [id number] [place] [phone] Apr, Morbid obesity E66.01 ; Hype rtriglyceridemia E78.1 ; Gastroesophageal reflux disease, esophagitis presence not specified K21.9 and Joint pain M25.50 [facility], [place] [id number] [place] [phone] Feb, [facility], [place] [address] [phone] Feb, [facility] [address] [place] [id number] [place] [phone] Jan, Acute bacterial conjunctivit is H10.30 [facility], [place] [address] [place] [id number] [address] [place] [phone] Dec, [facility], [place] [address] [facility] [id number] [address] [place] [phone] Dec, [facility], [place] [address] [facility] [id number] [address] [place] [phone] Nov, [facility], [place] [address] [place] [id number] [place] [phone] 07 Nov, 2017 Obstructive sleep apnea G47. 33 ; Morbid obesity E66.01 and Gastroesophageal reflux disease, esophagitis presence not specified K21.9 [facility] [address] [id number] [address] [place] [address] [id number] 06 Nov, 2017 Encounter for examination of eyes and vision without abnormal findings Z01.00 [facility], [place] [address] [facility] [id number] [address] [place] [phone] 31 Oct, 2017 Thyroid nodule E04.1 and Scr eening for breast cancer Z12.31 [facility], [place] [address] [place] [id number] [address] [place] [phone] 23 Oct, 2017 History of DVT (deep vein th rombosis) Z86.718 ; Thyroid nodule E04.1 and Gastroesophageal reflux disease, esophagitis presence not specified K21.9 [place] [address] [place] [id number] [place] [phone] Oct, [place] [address] [place] [id number] [place] [phone] Sep, [place] [address] [place] [id number] [place] [phone] Aug, [place] [address] [place] [id number] [address] [place] [phone] Aug, [place] [address] [place] [id number] [place] [phone] Aug, Acute pain of left shoulder M25.512 and Thyroid nodule E04.1 [place] [address] [place] [id number] [address] [place] [phone] July, Superior glenoid labrum lesi on of left shoulder, subsequent encounter S43.432D [facility], [place] [address] [place] [id number] [address] [place] [phone] Jun, History of DVT (deep vein th rombosis) Z86.718 [facility], [place] [address] [place] [id number] [address] [place] [phone] Jun, History of DVT (deep vein th rombosis) Z86.718 [facility], [place] [address] [place] [id number] [address] [place] [phone] Jun, Impingement syndrome, should er, left M75.42 [place] [address] [facility] [id number] [address] [place] [phone] May, Subacromial bursitis of left shoulder joint M75.52 [place] [address] [facility] [id number] [address] [place] [phone] May, [place] [address] [facility] [id number] [address] [place] [phone] May, Hypertriglyceridemia E78.1 ; roasterman (current) use of anticoagulants Z79.01 and Excessive daytime sleepiness G47.19 [place] [address] [facility] [id number] [address] [place] [address] May, History of DVT (deep vein th rombosis) Z86.718 ; Generalized anxiety disorder F41.1 ; Hypertriglyceridemia E78.1 ; roasterman (current) use of anticoagulants Z79.01 ; Subacromial bursitis of left shoulder joint M75.52 and Excessive daytime sleepiness G47.19 [place] [address] [id number] [address] [place] [phone] May, [place] [address] [facility] [id number] [address] [place] [phone] May, roasterman (current) use of a nticoagulants Z79.01 [place] [address] [facility] [id number] [address] [place] [phone] Apr, care home (current) use of a nticoagulants Z79.01 [place] [address] [id number] [address] [place] [phone] Apr, care home (current) use of a nticoagulants Z79.01 [place] [address] [facility] [id number] [address] [place] [phone] Apr, roasterman (current) use of a nticoagulants Z79.01 [place] [address] [id number] [address] [place] [phone] 16 Apr, 2017 [facility], [place] [address] [id number] [address] [place] [phone] Apr, care home (current) use of a nticoagulants Z79.01 [facility], [place] [address] [id number] [address] [place] [phone] 13 Apr, 2017 roasterman (current) use of a nticoagulants Z79.01 [facility], [place] [address] [id number] [address] [place] [phone] Apr, roasterman (current) use of a nticoagulants Z79.01 [facility], [place] [address] [id number] [address] [place] [phone] Apr, care home (current) use of a nticoagulants Z79.01 [facility], [place] [address] [id number] [address] [place] [phone] Apr, care home (current) use of a nticoagulants Z79.01 [facility], [place] [address] [id number] [address] [place] [phone] Apr, roasterman (current) use of a nticoagulants Z79.01 [facility], [place] [address] [id number] [address] [place] [phone] Mar, roasterman (current) use of a nticoagulants Z79.01 [facility], [place] [address] [id number] [address] [place] [phone] Mar, [facility], [place] [address] [id number] [address] [place] [phone] Mar, roasterman (current) use of a nticoagulants Z79.01 [facility] [address] [id number] [address] [place] [address] [id number] Jan, Dental examination Z01.20 [facility] [address] [id number] [address] [place] [address] [id number] Jan, [facility], [place] [address] [id number] [address] [place] [phone] Jan, care home (current) use of a nticoagulants Z79.01 [facility], [place] [address] [id number] [address] [place] [phone] Jan, History of DVT (deep vein th rombosis) Z86.718 [facility], [place] [address] [id number] [address] [place] [phone] Jan, Generalized anxiety disorder F41.1 and Peripheral edema R60.9 [place] [address] [id number] [address] [place] [phone] Nov, History of DVT (deep vein th rombosis) Z86.718 [facility], [place] [address] [id number] [address] [place] [phone] Nov, roasterman (current) use of a nticoagulants Z79.01 [facility] [address] [id number] [address] [place] [phone] Nov, Acute non-recurrent maxillar y sinusitis J01.00 [facility], [place] [address] [id number] [address] [place] [phone] Oct, care home (current) use of a nticoagulants Z79.01 [facility], [place] [address] [id number] [address] [place] [id number] Oct, Personal history of venous t hrombosis and embolism Z86.718 [facility], [place] [address] [id number] [address] [place] [phone] Sep, [facility], [place] [address] [id number] [address] [place] [phone] Sep, Personal history of venous t hrombosis and embolism Z86.718 [facility], [place] [address] [facility] [id number] [address] [place] [phone] Sep, roasterman (current) use of a nticoagulants Z79.01 [facility], [place] [address] [id number] [address] [place] [phone] Sep, care home (current) use of a nticoagulants Z79.01 [facility] [place] [address] [facility] [id number] [address] [place] [phone] Sep, Generalized anxiety disorder F41.1 and History of DVT (deep vein thrombosis) Z86.718 [place] [address] [facility] [id number] [address] [place] [address] Aug, History of DVT (deep vein th rombosis) Z86.718 ; Generalized anxiety disorder F41.1 ; care home (current) use of anticoagulants Z79.01 ; Pelvic pain R10.2 ; Hypertriglyceridemia E78.1 ; Excessive daytime sleepiness G47.19 ; Colon cancer screening Z12.11 ; Screening for breast cancer Z12.39 ; Peripheral edema R60.9 and Gastroesophageal reflux disease, esophagitis presence not specified K21.9 [place] [address] [facility] [id number] [address] [place] [phone] Aug, [place] [address] [facility] [id number] [address] [place] [phone] July, [place] [address] [facility] [id number] [address] [place] [phone] July, History of DVT (deep vein th rombosis) Z86.718 [place] [address] [id number] [address] [place] [address] Jun, Generalized anxiety disorder F41.1 [place] [address] [id number] [address] [place] [phone] Jun, History of DVT (deep vein th rombosis) Z86.718 [place] [address] [facility] [id number] [address] [place] [id number] Jun, History of DVT (deep vein th rombosis) Z86.718 [place] [address] [facility] [id number] [address] [place] [phone] Jun, History of DVT (deep vein th rombosis) Z86.718 [facility] [place] [address] [facility] [id number] [address] [place] [address] Jun, History of DVT (deep vein th rombosis) Z86.718 [facility], [place] [address] [place] [id number] [address] [place] [phone] May, History of DVT (deep vein th rombosis) Z86.718 [place] [address] [facility] [id number] [address] [place] [address] May, care home (current) use of a nticoagulants Z79.01 [place] [address] [place] [id number] [address] [place] [phone] May, roasterman (current) use of a nticoagulants Z79.01 [facility], [place] [id number] [place] [phone] May, History of DVT (deep vein th rombosis) Z86.718 [facility] [address] [place] [id number] [address] [place] [address] Apr, Bacterial conjunctivitis of left eye H10.9 and H/O motion sickness Z87.898 [facility], [place] [address] [place] [id number] [address] [place] [phone] Apr, History of DVT (deep vein th rombosis) Z86.718 [facility] [place] [address] [place] [id number] [address] [place] [phone] Apr, History of DVT (deep vein th rombosis) Z86.718 [facility], [place] [address] [place] [id number] [address] [place] [phone] Apr, History of DVT (deep vein th rombosis) Z86.718 [facility] [place] [address] [place] [id number] [address] [place] [phone] 14 Apr, 2016 care home (current) use of a nticoagulants Z79.01 [facility] [place] [address] [id number] [address] [place] [phone] Mar, [facility] [place] [address] [id number] [address] [place] [phone] Mar, care home (current) use of a nticoagulants Z79.01 [facility] [place] [address] [id number] [address] [place] [phone] Mar, Hypertriglyceridemia E78.1 a nd roasterman (current) use of anticoagulants Z79.01 [facility] [place] [address] [id number] [address] [place] [phone] Feb, roasterman (current) use of a nticoagulants Z79.01 [place] [address] [id number] [address] [place] [phone] Feb, care home (current) use of a nticoagulants Z79.01 [facility] [place] [address] [id number] [address] [place] [phone] Feb, roasterman (current) use of a nticoagulants Z79.01 [facility] [place] [address] [id number] [address] [place] [phone] Dec, [facility] [place] [address] [id number] [address] [place] [phone] Nov, [facility] [place] [address] [id number] [address] [place] [phone] 13 Nov, 2015 History of DVT (deep vein th rombosis) Z86.718 ; Tremulousness R25.1 ; Generalized anxiety disorder F41.1 ; Peripheral edema R60.9 and Hypertriglyceridemia E78.1 [facility] [place] [address] [id number] [address] [place] [phone] Oct, History of DVT (deep vein th rombosis) Z86.718 [place] [address] [id number] [address] [place] [phone] Oct, [place] [address] [facility] [id number] [address] [place] [phone] Sep, History of DVT (deep vein th rombosis) Z86.718 [place] [address] [facility] [id number] [address] [place] [phone] Sep, roasterman (current) use of a nticoagulants Z79.01 [place] [address] [facility] [id number] [address] [place] [phone] July, [place] [address] [facility] [id number] [address] [place] [id number] July, roasterman (current) use of a nticoagulants Z79.01 [place] [address] [address] [facility] [id number] [address] [place] [phone] July, care home (current) use of a nticoagulants Z79.01 [place] [address] [address] [facility] [id number] [address] [place] [phone] Jun, roasterman (current) use of a nticoagulants Z79.01 [facility] [place] [address] [address] [facility] [id number] [address] [place] [phone] Jun, Coccyx pain M53.3 ; Encounte r for therapeutic drug level monitoring Z51.81 and roasterman current use 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.01 [place] [id number] [facility] [id number] [address] [place] [phone] May, Abnormal mammogram R92.8 [facility] [place] [address] [facility] [id number] [address] [place] [phone] May, [facility] [place] [address] [address] [facility] [id number] [address] [place] [phone] May, Acute vaginitis N76.0 and En counter for other screening for malignant neoplasm of breast Z12.39 [place] [address] [address] [place] [id number] [address] [place] [phone] Apr, [facility], [place] [address] [facility] [id number] [address] [place] [phone] Apr, [facility] [place] [address] [facility] [id number] [address] [place] [phone] Apr, Peripheral edema R60.9 [facility], [place] [address] [facility] [id number] [address] [place] [phone] Apr, care home (current) use of a nticoagulants Z79.01 [facility], [place] [address] [id number] [address] [place] [phone] Apr, Peripheral edema R60.9 and L jose martin term (current) 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 Z79.01 [facility], [place] [address] [facility] [id number] [address] [place] [phone] Apr, care home (current) use of a nticoagulants Z79.01 [facility], [place] [address] [id number] [address] [place] [phone] Apr, [facility], [place] [address] [facility] [id number] [address] [place] [phone] Apr, care home (current) use of a nticoagulants Z79.01 [facility], [place] [address] [facility] [id number] [address] [place] [phone] Apr, Peripheral edema R60.9 [facility] [facility], [place] [address] [facility] [id number] [address] [place] [address] Mar, roasterman (current) use of a nticoagulants Z79.01 [facility], [place] [address] [id number] [address] [place] [address] Mar, care home (current) use of a nticoagulants Z79.01 and Hypertriglyceridemia E78.1 [facility], [place] [address] [facility] [id number] [address] [place] [address] Mar, care home (current) use of a nticoagulants Z79.01 [facility], [place] [address] [id number] [address] [place] [address] Mar, roasterman (current) use of a nticoagulants Z79.01 [facility], [place] [address] [id number] [address] [place] [address] Mar, [facility], [place] [address] [id number] [address] [place] [address] Mar, roasterman (current) use of a nticoagulants Z79.01 ; Hypertriglyceridemia E78.1 ; Personal history of venous thrombosis and embolism Z86.718 and Lump R22.9 [place] [address] [id number] [address] [place] [address] Mar, Personal history of venous t hrombosis and embolism Z86.718 [place] [address] [id number] [address] [place] [address] Mar, Personal history of venous t hrombosis and embolism Z86.718 [place] [address] [id number] [address] [place] [address] Mar, [place] [address] [id number] [address] [place] [address] Dec, Personal history of venous t hrombosis and embolism Z86.718 [place] [address] [id number] [address] [place] [address] Dec, Personal history of venous t hrombosis and embolism V12.51 [place] [address] [id number] [address] [place] [address] Nov, Personal history of venous t hrombosis and embolism V12.51 [place] [address] [id number] [address] [place] [address] Nov, Personal history of venous t hrombosis and embolism V12.51 [place] [address] [id number] [address] [place] [address] Nov, Personal history of venous t hrombosis and embolism V12.51 [facility], [place] [address] [id number] [address] [place] [address] Nov, Personal history of venous t hrombosis and embolism V12.51 [facility], [place] [address] [id number] [address] [place] [address] Nov, [facility], [place] [address] [id number] [address] [place] [address] Oct, Dysuria 788.1 [place] [address] [id number] [address] [place] [address] Oct, Personal history of venous t hrombosis and embolism V12.51 [place] [address] [id number] [address] [place] [address] Oct, [facility], [place] [address] [id number] [address] [place] [id number] Oct, Personal history of venous t hrombosis and embolism V12.51 [place] [address] [id number] [address] [place] [address] Sep, Personal history of venous t hrombosis and embolism V12.51 [place] [address] [id number] [address] [place] [address] Sep, Personal history of venous t hrombosis and embolism V12.51 [facility], [place] [address] [id number] [address] [place] [address] Aug, Personal history of venous t hrombosis and embolism V12.51 [place] [address] [id number] [address] [place] [address] Aug, Personal history of venous t hrombosis and embolism V12.51 [facility], [place] [address] [id number] [address] [place] [address] Aug, Personal history of venous t hrombosis and embolism V12.51 [facility], [place] [address] [id number] [address] [place] [address] July, Generalized anxiety disorder 300.02 ; Abdominal pain, left lower quadrant 789.04 and Personal history of venous thrombosis and embolism V12.51 [facility], [place] [address] [id number] [address] [place] [address] 14 Jun, 2014 [facility], [place] [address] [id number] [address] [place] [address] Jun, [facility], [place] [address] [id number] [address] [place] [id number] May, [facility], [place] [address] [id number] [address] [place] [address] May, [facility], [place] [address] [id number] [address] [place] [phone] May, [facility], [place] [address] [id number] [address] [place] [id number] May, [facility], [place] [address] [id number] [address] [place] [address] May, [facility], [place] [address] [id number] [address] [place] [phone] May, [facility], [place] [address] [id number] [address] [place] [phone] May, [facility], [place] [address] [id number] [address] [place] [phone] May, [facility], [place] [address] [id number] [address] [place] [id number] Apr, [facility], [place] [address] [id number] [address] [place] [phone] Apr, [facility], [place] [address] [id number] [address] [place] [phone] Apr, [facility], [place] [address] [id number] [address] [place] [phone] Apr, [facility] [address] [id number] [address] [place] [address], [place] [address] Apr, [facility] [address] [id number] [address] [place] [address], [place] [address] Mar, [facility] [address] [id number] [address] [place] [address], [place] [address] Mar, [facility] [address] [id number] [address] [place] [address], [place] [address] Mar, [facility] [address] [id number] [address] [place] [address], [place] [address] Mar, [facility] [address] [id number] [address] [place] [address], [place] [address] Mar, [facility] [address] [id number] [address] [place] [address], [place] [address] Mar, [facility] [address] [id number] [address] [place] [address], [place] [address] Feb, [facility] [address] [id number] [address] [place] [address], [place] [address] Feb, [facility] [address] [id number] [address] [place] [address], [place] [address] Feb, [facility] [address] [id number] [address] [place] [address], [place] [address] Feb, [facility] [address] [id number] [address] [place] [address], [place] [address] Feb, [facility] [address] [id number] [address] [place] [address], [place] [address] Feb, [facility] [address] [id number] [address] [place] [address], [place] [address] Feb, [facility] [address] [id number] [address] [place] [address], [place] [address] Feb, [facility] [address] [id number] [address] [place] [address], [place] [address] Feb, [facility] [address] [id number] [address] [place] [address], [place] [address] Feb, [facility] [address] [id number] [address] [place] [address], [place] [address] Jan, [facility] [address] [id number] [address] [place] [address], [place] [address] Jan, [facility] [address] [id number] [address] [place] [address], [place] [address] Jan, [facility] [address] [id number] [address] [place] [address], [place] [address] Jan, [facility] [address] [id number] [address] [place] [address], [place] [address] Jan, [facility] [address] [id number] [address] [place] [address], [place] [address] Jan, [facility] [address] [id number] [address] [place] [address], [place] [address] Jan, [facility] [address] [id number] [address] [place] [address], [place] [address] Jan, [facility] [address] [id number] [address] [place] [address], [place] [address] Jan, [facility] [address] [id number] [address] [place] [address], [place] [address] Jan, [facility] [address] [id number] [address] [place] [address], [place] [address] Dec, [facility] [address] [id number] [address] [place] [address], [place] [address] Dec, [facility] [address] [id number] [address] [place] [address], [place] [address] Dec, [facility] [address] [id number] [address] [place] [address], [place] [address] Dec, [facility] [address] [id number] [address] [place] [address], [place] [address] Dec, [facility] [address] [id number] [address] [place] [address], [place] [address] Dec, [facility] [address] [id number] [address] [place] [address], [place] [address] Dec, [facility] [address] [id number] [address] [place] [address], [place] [address] Dec, [facility] [address] [id number] [address] [place] [address], [place] [address] Dec, [facility] [address] [id number] [address] [place] [address], [place] [address] Dec, [facility] [address] [id number] [address] [place] [address], [place] [address] Dec, [facility] [address] [id number] [address] [place] [address], [place] [address] Dec, [facility] [address] [id number] [address] [place] [address], [place] [address] Dec, [facility] [address] [id number] [address] [place] [address], [place] [address] Dec, [facility] [address] [id number] [address] [place] [address], [place] [address] Dec, [facility] [address] [id number] [address] [place] [address] Nov, [facility] [address] [id number] [address] [place] [address], [place] [address] 30 Nov, 2013 [facility] [address] [id number] [address] [place] [address], [place] [address] Nov, [facility] [address] [id number] [address] [place] [address], [place] [address] Nov, [facility] [address] [id number] [facility] [place] [address] 24 Sep, 2013 [facility] [address] [id number] [address] [place] [address], [place] [address] 24 Sep, 2013 [facility] [address] [id number] [address] [place] [address], [place] [address] 23 Sep, 2013 [facility] [address] [id number] [address] [place] [address], [place] [address] 23 Sep, 2013 [facility] [address] [id number] [address] [place] [address], [place] [address] 18 Nov, 2013 [facility] [address] [id number] [address] [place] [address], [place] [address] 18 Nov, 2013 [facility] [address] [id number] [address] [place] [address], [place] [address] 17 Nov, 2013 [facility] [address] [id number] [address] [place] [address], [place] [address] 17 Nov, 2013 [facility] [address] [id number] [address] [place] [address], [place] [address] 11 Nov, 2013 [facility] [address] [id number] [address] [place] [address], [place] [address] 11 Nov, 2013 [facility] [address] [id number] [address] [place] [address], [place] [address] 10 Nov, 2013 [facility] [address] [id number] [address] [place] [address], [place] [address] 10 Nov, 2013 [facility] [address] [id number] [address] [place] [address], [place] [address] 08 Nov, 2013 [facility] [address] [id number] [address] [place] [address], [place] [address] 08 Nov, 2013 [facility] [address] [id number] [address] [place] [address], [place] [address] 22 Sep, 2013 [facility] [address] [id number] [address] [place] [address], [place] [address] Sep, [facility] [address] [id number] [address] [place] [address], [place] [address] Sep, [facility] [address] [id number] [address] [place] [address], [place] [address] Sep, [facility] [address] [id number] [address] [place] [address], [place] [address] Sep, [facility] [address] [id number] [address] [place] [address], [place] [address] Sep, [facility] [address] [id number] [address] [place] [address], [place] [address] Aug, [facility] [address] [id number] [address] [place] [address], [place] [address] Aug, [facility] [address] [id number] [address] [place] [address], [place] [address] Aug, [facility] [address] [id number] [address] [place] [address], [place] [address] Aug, [facility] [address] [id number] [address] [place] [address], [place] [address] Aug, [facility] [address] [id number] [address] [place] [address], [place] [address] Aug, [facility] [address] [id number] [address] [place] [address], [place] [address] Aug, [facility] [address] [id number] [address] [place] [address], [place] [address] Aug, [facility] [address] [id number] [address] [place] [address], [place] [address] Aug, [facility] [address] [id number] [address] [place] [address], [place] [address] Aug, [facility] [address] [id number] [address] [place] [address], [place] [address] Aug, [facility] [address] [id number] [address] [place] [address], [place] [address] July, [facility] [address] [id number] [address] [place] [address], [place] [address] July, [facility] [address] [id number] [address] [place] [address], [place] [address] Jun, [facility] [address] [id number] [address] [place] [address], [place] [address] Jun, [facility] [address] [id number] [address] [place] [address], [place] [address] Jun, [facility] [address] [id number] [address] [place] [address], [place] [address] Jun, [facility] [address] [id number] [address] [place] [address], [place] [address] Jun, [facility] [address] [id number] [address] [place] [address], [place] [address] Jun, [facility] [address] [id number] [address] [place] [address], [place] [address] Jun, [facility] [address] [id number] [address] [place] [address], [place] [address] Jun, [facility] [address] [id number] [address] [place] [address], [place] [address] Jun, [facility] [address] [id number] [address] [place] [address], [place] [address] Jun, [facility] [address] [id number] [address] [place] [address], [place] [address] Jun, [facility] [address] [id number] [address] [place] [address], [place] [address] Jun, [facility] [address] [id number] [address] [place] [address], [place] [address] May, [facility] [address] [id number] [address] [place] [address], [place] [address] May, [facility] [address] [id number] [facility] [place] [address] 20 May, 2013 [facility] [address] [id number] [facility] [place] [address] May, [facility] [address] [id number] [facility] [place] [address] May, [facility] [address] [id number] [address] [place] [address], [place] [address] May, [facility] [address] [id number] [address] [place] [address], [place] [address] May, [facility] [address] [id number] [address] [place] [address], [place] [address] May, [facility] [address] [id number] [address] [place] [address], [place] [address] May, [facility] [address] [id number] [address] [place] [address], [place] [address] May, [facility] [address] [id number] [address] [place] [address], [place] [address] May, [facility] [address] [id number] [address] [place] [address], [place] [address] May, [facility] [address] [id number] [address] [place] [address], [place] [address] Apr, [facility] [address] [id number] [address] [place] [address], [place] [address] Apr, [facility] [address] [id number] [address] [place] [address], [place] [address] Apr, [facility] [address] [id number] [address] [place] [address], [place] [address] Apr, [facility] [address] [id number] [address] [place] [address], [place] [address] Apr, [facility] [address] [id number] [address] [place] [address], [place] [address] Apr, [facility] [address] [id number] [address] [place] [address], [place] [address] Apr, [facility] [address] [id number] [address] [place] [address], [place] [address] Apr, [facility] [address] [id number] [address] [place] [address], [place] [address] Apr, [facility] [address] [id number] [address] [place] [address], [place] [address] Apr, [facility] [address] [id number] [address] [place] [address], [place] [address] Apr, [facility] [address] [id number] [address] [place] [address], [place] [address] Apr, [facility] [address] [id number] [address] [place] [address], [place] [address] Apr, [facility] [address] [id number] [address] [place] [address], [place] [address] Apr, [facility] [address] [id number] [address] [place] [address], [place] [address] Apr, [facility] [address] [id number] [address] [place] [address], [place] [address] Apr, [facility] [address] [id number] [address] [place] [address], [place] [address] Apr, [facility] [address] [id number] [address] [place] [address], [place] [address] Jan, [facility] [address] [id number] [address] [place] [address], [place] [address] Jan, [facility] [address] [id number] [address] [place] [address], [place] [address] Jan, [facility] [address] [id number] [address] [place] [id number] Jan, [facility] [address] [id number] [address] [place] [address], [place] [address] Jan, [facility] [address] [id number] [address] [place] [address], [place] [address] Jan, [facility] [address] [id number] [address] [place] [address], [place] [address] Jan, [facility] [address] [id number] [address] [place] [address], [place] [address] Dec, [facility] [address] [id number] [address] [place] [address], [place] [address] Dec, [facility] [address] [id number] [address] [place] [address], [place] [address] Dec, [facility] [address] [id number] [address] [place] [address], [place] [address] Nov, [facility] [address] [id number] [address] [place] [address], [place] [address] Nov, [facility] [address] [id number] [address] [place] [address], [place] [address] 05 Nov, 2012 [facility] [address] [id number] [address] [place] [address], [place] [address] Nov, [facility] [address] [id number] [address] [place] [address], [place] [address] Oct, [facility] [address] [id number] [address] [place] [address] Oct, [facility] [address] [id number] [address] [place] [address], [place] [address] Oct, [facility] [address] [id number] [address] [place] [address], [place] [address] Oct, [facility] [address] [id number] [address] [place] [phone] Oct, [facility] [address] [id number] [address] [place] [address], [place] [address] Sep, [facility] [address] [id number] [address] [place] [address], [place] [address] Sep, [facility] [address] [id number] [address] [place] [address], [place] [address] Sep, [facility] [address] [id number] [address] [place] [address], [place] [address] Sep, [facility] [address] [id number] [address] [place] [address], [place] [address] Sep, [facility] [address] [id number] [address] [place] [address], [place] [address] Sep, [facility] [address] [id number] [address] [place] [address], [place] [address] Sep, [facility] [address] [id number] [address] [place] [address], [place] [address] Aug, [facility] [address] [id number] [address] [place] [address], [place] [address] Aug, [facility] [address] [id number] [address] [place] [address], [place] [address] July, [facility] [address] [id number] [address] [place] [address], [place] [address] Jun, [facility] [address] [id number] [address] [place] [address], [place] [address] Jun, [facility] [address] [id number] [address] [place] [address], [place] [address] Jun, [facility] [address] [id number] [address] [place] [address], [place] [address] Apr, [facility] [address] [id number] [address] [place] [address], [place] [address] Apr, [facility] [address] [id number] [address] [place] [address], [place] [address] Apr, [facility] [address] [id number] [address] [place] [address], [place] [address] Mar, [facility] [address] [id number] [address] [place] [address], [place] [address] 24 Mar, 2012 [facility] [address] [id number] [address] [place] [address], [place] [address] 2012 [facility] [address] [id number] [address] [place] [address], [place] [address] 09 Mar, 2012 [facility] [address] [id number] [address] [place] [address], [place] [address] Mar, [facility] [address] [id number] [address] [place] [address], [place] [address] 14 Feb, 2012 [facility] [address] [id number] [address] [place] [address], [place] [address] 14 Feb, 2012 [facility] [address] [id number] [address] [place] [address], [place] [address] Jan, [facility] [address] [id number] [address] [place] [address], [place] [address] Jan, [facility] [address] [id number] [address] [place] [address], [place] [address] Jan, [facility] [address] [id number] [address] [place] [address], [place] [address] Jan, [facility] [address] [id number] [address] [place] [address], [place] [address] Jan, [facility] [address] [id number] [address] [place] [address], [place] [address] Jan, [facility] [address] [id number] [address] [place] [address], [place] [address] 06 Jan, 2012 [facility] [address] [id number] [address] [place] [address], [place] [address] 31 Dec, 2011 [facility] [address] [id number] [address] [place] [address], [place] [address] Dec, [facility] [address] [id number] [address] [place] [address], [place] [address] Dec, [facility] [address] [id number] [address] [place] [address], [place] [address] Dec, [facility] [address] [id number] [address] [place] [address], [place] [address] Dec, [facility] [address] [id number] [address] [place] [address], [place] [address] Dec, [facility] [address] [id number] [address] [place] [address], [place] [address] Dec, [facility] [address] [id number] [address] [place] [address], [place] [address] Dec, [facility] [address] [id number] [address] [place] [address], [place] [address] Dec, [facility] [address] [id number] [address] [place] [address], [place] [address] Dec, [facility] [address] [id number] [address] [place] [address], [place] [address] Oct, [facility] [address] [id number] [address] [place] [address], [place] [address] Oct, [facility] [address] [id number] [address] [place] [address], [place] [address] Aug, [facility] [address] [id number] [address] [place] [address] Aug, [facility] [address] [id number] [address] [place] [address], [place] [address] July, [facility] [address] [id number] [address] [place] [address], [place] [address] Jun, [facility] [address] [id number] [address] [place] [address], [place] [address] Jun, [facility] [address] [id number] [address] [place] [address], [place] [address] May, [facility] [address] [id number] [address] [place] [address], [place] [address] Apr, [facility] [address] [id number] [address] [place] [address], [place] [address] 16 Apr, 2011 [facility] [address] [id number] [address] [place] [address], [place] [address] Mar, [facility] [address] [id number] [address] [place] [address], [place] [address] 16 Mar, 2011 [facility] [address] [id number] [address] [place] [address], [place] [address] 19 Feb, 2011 [facility] [address] [id number] [address] [place] [address], [place] [address] 15 Feb, 2011 [facility] [address] [id number] [address] [place] [address], [place] [address] Feb, [facility] [address] [id number] [address] [place] [address], [place] [address] 13 Feb, 2011 [facility] [address] [id number] [address] [place] [address], [place] [address] Jan, [facility] [address] [id number] [address] [place] [address], [place] [address] 17 Dec, 2010 [facility] [address] [id number] [address] [place] [address], [place] [address] 08 Feb, 2010 [facility] [address] [id number] [address] [place] [address], [place] [address] Feb, [facility] [address] [id number] [address] [place] [address], [place] [address] Feb, [facility] [address] [id number] [address] [place] [address], [place] [address] Feb, [facility] [address] [id number] [address] [place] [address], [place] [address] Dec, [facility] [place] [address] [id number] [address] [place] [address] Dec, [facility] [place] [address] [id number] [address] [place] [address] Oct, [facility] [place] [address] [id number] [address] [place] [address] Jun, [facility] [place] [address] [id number] [address] [place] [address] Feb, [facility] [place] [address] [id number] [address] [place] [phone] Feb, [facility] [place] [address] [id number] [address] [place] [address] Feb, [facility] [place] [address] [facility] [id number] [address] [place] [address] Dec, IMMUNIZATIONS No Known Immunizations SOCIAL HISTORY Never Assessed REASON FOR VISIT PLAN OF CARE VITAL SIGNS MEDICATIONS Unknown Medications RESULTS No Results PROCEDURES Procedure Date Ordered Result Body Site PROTHROMBIN TIME September 11, 2011 INSTRUCTIONS MEDICATIONS ADMINISTERED No Known Medications MEDICAL [...]
--- OUTSIDE RECORDS SUMMARY | 2019-10-19 12:25 | XMS REPORT ---
Author Author KIANA Mary Jane RAMIREZ 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 Active 078059845 Problem Pelvic pain R10.2 Active 17743898 Problem Peripheral edema R60.9 Active 271 797915 Problem Moderate episode of recurrent major depressive disorder F33.1 Active 341683173 Problem Presence of IVC filter Z95.828 Active 586418554 Problem Vitamin D deficiency E55.9 Active 85438128 Problem Generalized anxiety disorder F41.1 A ctive 229252705 Problem Excessive daytime sleepiness G47.19 A ctive 389013018702 Problem Gastroesophageal reflux disease, esophagitis pre sence not specified K21.9 Active 406427982 Problem Thyroid nodule E04.1 Active 12745 5005 Problem Morbid obesity E66.01 Active 04764 6002 ALLERGIES No Information ENCOUNTERS Encounter Location Date Diagnosis [facility] [address] [facility] [id number] [address] [place] [id number] 15 Jun, 2019 [facility] [address] [facility] [id number] [address] [place] [id number] 12 Apr, 2019 Back pain with history of sp inal surgery M54.9 [facility] [address] [facility] [id number] [address] [place] [id number] 11 Apr, 2019 [facility] [address] [id number] [address] [place] [id number] Apr, Gastroenteritis K52.9 ; Back pain with history of spinal surgery M54.9 ; Dermatofibroma of lower leg, unspecified laterality D23.70 and Morbid obesity E66.01 [facility] [address] [id number] [address] [place] [id number] Mar, [facility] [address] [id number] [address] [place] [phone] Jan, [place] [address] [id number] [address] [place] [phone] Jan, [place] [address] [facility] [id number] [address] [place] [phone] Dec, Encounter for weight managem ent Z76.89 [place] [address] [facility] [id number] [address] [place] [phone] Dec, Encounter for weight managem ent Z76.89 and Screening mammogram, encounter for Z12.31 [place] [address] [id number] [address] [place] [phone] Nov, Encounter for weight managem ent Z76.89 [place] [address] [id number] [address] [place] [phone] Nov, Thyroid nodule E04.1 [place] [address] [facility] [id number] [address] [place] [phone] Nov, Thyroid nodule E04.1 [place] [address] [id number] [address] [place] [phone] Nov, Thyroid nodule E04.1 [place] [address] [facility] [id number] [address] [place] [phone] Oct, Syncope, unspecified syncope type R55 and Encounter for weight management Z76.89 [place] [address] [facility] [id number] [address] [place] [id number] Oct, Morbid obesity E66.01 [facility] [address] [id number] [address] [place] [phone] Oct, Hypertriglyceridemia E78.1 [facility] [address] [id number] [address] [place] [phone] Oct, [facility] [address] [facility] [id number] [address] [place] [id number] Oct, Hypertriglyceridemia E78.1 [facility] [address] [id number] [address] [place] [phone] Sep, Hypertriglyceridemia E78.1 a nd Vitamin D deficiency E55.9 [facility] [address] [id number] [address] [place] [id number] Sep, [facility] [address] [facility] [id number] [address] [place] [id number] Sep, Morbid obesity E66.01 ; Mode rate episode of recurrent major depressive disorder F33.1 ; Hypertriglyceridemia E78.1 and Vitamin D deficiency E55.9 [facility] [address] [id number] [address] [place] [phone] Aug, [facility] [address] [facility] [id number] [address] [place] [phone] July, [facility] [address] [facility] [id number] [address] [place] [phone] July, [facility] [address] [id number] [address] [place] [id number] Jun, [facility] [address] [id number] [address] [place] [id number] Jun, [facility] [address] [facility] [id number] [address] [place] [id number] Jun, Closed compression fracture of L3 lumbar vertebra with routine healing, subsequent encounter S32.030D and Drug-induced constipation K59.03 [facility] [address] [id number] [address] [place] [phone] Jun, [facility] [address] [facility] [id number] [address] [place] [phone] Jun, [facility] [address] [facility] [id number] [address] [place] [phone] Apr, [facility] [address] [facility] [id number] [address] [place] [phone] Apr, Morbid obesity E66.01 [facility] [address] [facility] [id number] [address] [place] [id number] 12 Apr, 2018 Morbid obesity E66.01 ; Hype rtriglyceridemia E78.1 ; Gastroesophageal reflux disease, esophagitis presence not specified K21.9 and Joint pain M25.50 [facility] [address] [facility] [id number] [address] [place] [phone] Feb, [facility] [address] [place] [id number] [place] [phone] Feb, [facility] [address] [facility] [id number] [address] [place] [phone] Jan, Acute bacterial conjunctivit is H10.30 [facility] [address] [facility] [id number] [address] [place] [id number] 08 Dec, 2017 [facility] [address] [place] [id number] [address] [place] [id number] 04 Dec, 2017 [facility] [address] [facility] [id number] [address] [place] [id number] 17 Nov, 2017 [facility] [address] [facility] [id number] [address] [place] [phone] 07 Nov, 2017 Obstructive sleep apnea G47. 33 ; Morbid obesity E66.01 and Gastroesophageal reflux disease, esophagitis presence not specified K21.9 [facility] [address] [id number] [address] [place] [id number] 06 Nov, 2017 Encounter for examination of eyes and vision without abnormal findings Z01.00 [facility] [address] [place] [id number] [address] [place] [phone] Oct, Thyroid nodule E04.1 and Scr eening for breast cancer Z12.31 [place] [address] [place] [id number] [address] [place] [phone] Oct, History of DVT (deep vein th rombosis) Z86.718 ; Thyroid nodule E04.1 and Gastroesophageal reflux disease, esophagitis presence not specified K21.9 [place] [address] [place] [id number] [place] [phone] Oct, [place] [address] [place] [id number] [address] [place] [phone] Sep, [place] [address] [place] [id number] [place] [phone] Aug, [place] [address] [phone] Aug, [place] [address] [phone] Aug, Acute pain of left shoulder M25.512 and Thyroid nodule E04.1 [place] [address] [place] [id number] [place] [phone] July, Superior glenoid labrum lesi on of left shoulder, subsequent encounter S43.432D [place] [address] [place] [id number] [address] [place] [phone] Jun, History of DVT (deep vein th rombosis) Z86.718 [place] [address] [place] [id number] [address] [place] [id number] Jun, History of DVT (deep vein th rombosis) Z86.718 [place] [address] [place] [id number] [address] [place] [id number] Jun, Impingement syndrome, should er, left M75.42 [place] [address] [place] [id number] [address] [place] [phone] May, Subacromial bursitis of left shoulder joint M75.52 [place] [address] [facility] [id number] [address] [place] [phone] May, [place] [address] [facility] [id number] [address] [place] [id number] May, Hypertriglyceridemia E78.1 ; half-way (current) use of anticoagulants Z79.01 and Excessive daytime sleepiness G47.19 [place] [address] [facility] [id number] [address] [place] [phone] May, History of DVT (deep vein th rombosis) Z86.718 ; Generalized anxiety disorder F41.1 ; Hypertriglyceridemia E78.1 ; half-way (current) use of anticoagulants Z79.01 ; Subacromial bursitis of left shoulder joint M75.52 and Excessive daytime sleepiness G47.19 [place] [address] [facility] [id number] [address] [place] [phone] May, [place] [address] [facility] [id number] [address] [place] [phone] May, half-way (current) use of a nticoagulants Z79.01 [place] [address] [facility] [id number] [address] [place] [phone] Apr, half-way (current) use of a nticoagulants Z79.01 [place] [address] [facility] [id number] [address] [place] [id number] Apr, 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 nticoagulants Z79.01 [place] [address] [id number] [address] [place] [id number] Apr, half-way (current) use of a nticoagulants Z79.01 [place] [address] [facility] [id number] [address] [place] [phone] Apr, [place] [address] [facility] [id number] [address] [place] [id number] Apr, 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 nticoagulants Z79.01 [facility] [address] [id number] [address] [place] [phone] 13 Apr, 2017 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 nticoagulants Z79.01 [facility] [address] [id number] [address] [place] [phone] Apr, 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 nticoagulants Z79.01 [facility] [address] [id number] [address] [place] [phone] Apr, half-way (current) use of a nticoagulants Z79.01 [facility] [address] [id number] [address] [place] [id number] Apr, 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 nticoagulants Z79.01 [facility] [address] [id number] [address] [place] [phone] Apr, half-way (current) use of a nticoagulants Z79.01 [facility] [address] [id number] [address] [place] [phone] Mar, 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 nticoagulants Z79.01 [facility] [address] [id number] [address] [place] [phone] Mar, [facility] [address] [id number] [address] [place] [id number] Mar, half-way (current) use of a nticoagulants Z79.01 [facility] [address] [id number] [address] [place] [id number] Jan, Dental examination Z01.20 [facility] [address] [id number] [address] [place] [id number] Jan, [facility] [address] [id number] [address] [place] [phone] Jan, half-way (current) use of a nticoagulants Z79.01 [facility] [address] [id number] [address] [place] [phone] 17 Jan, 2017 History of DVT (deep vein th rombosis) Z86.718 [facility] [address] [id number] [address] [place] [phone] Jan, Generalized anxiety disorder F41.1 and Peripheral edema R60.9 [facility] [address] [id number] [address] [place] [phone] Nov, History of DVT (deep vein th rombosis) Z86.718 [place] [address] [id number] [address] [place] [phone] Nov, 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 nticoagulants Z79.01 [facility] [address] [id number] [address] [place] [phone] Nov, Acute non-recurrent maxillar y sinusitis J01.00 [facility] [address] [id number] [address] [place] [phone] Oct, 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 nticoagulants Z79.01 [facility] [address] [id number] [address] [place] [phone] Oct, Personal history of venous t hrombosis and embolism Z86.718 [facility] [address] [id number] [address] [place] [id number] Sep, [facility] [address] [id number] [address] [place] [phone] Sep, Personal history of venous t hrombosis and embolism Z86.718 [facility] [address] [id number] [address] [place] [phone] Sep, half-way (current) use of a nticoagulants Z79.01 [facility] [address] [id number] [address] [place] [id number] Sep, 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39 ; Peripheral edema R60.9 and Gastroesophageal reflux disease, esophagitis presence not specified K21.9 [place] [address] [place] [id number] [address] [place] [phone] Aug, [place] [address] [place] [id number] [address] [place] [phone] July, [place] [address] [place] [id number] [address] [place] [phone] July, History of DVT (deep vein th rombosis) Z86.718 [place] [address] [place] [id number] [address] [place] [phone] Jun, Generalized anxiety disorder F41.1 [place] [address] [place] [id number] [address] [place] [id number] Jun, History of DVT (deep vein th rombosis) Z86.718 [place] [address] [facility] [id number] [address] [place] [phone] Jun, History of DVT (deep vein th rombosis) Z86.718 [place] [address] [place] [id number] [address] [place] [id number] Jun, History of DVT (deep vein th rombosis) Z86.718 [place] [address] [place] [id number] [address] [place] [phone] Jun, History of DVT (deep vein th rombosis) Z86.718 [facility] [address] [facility] [id number] [address] [place] [id number] May, History of DVT (deep vein th rombosis) Z86.718 [facility] [address] [facility] [id number] [address] [place] [phone] May, 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 nticoagulants Z79.01 [place] [address] [facility] [id number] [address] [place] [phone] May, half-way (current) use of a nticoagulants Z79.01 [facility] [address] [facility] [id number] [address] [place] [phone] May, History of DVT (deep vein th rombosis) Z86.718 [facility] [address] [facility] [id number] [address] [place] [id number] Apr, Bacterial conjunctivitis of left eye H10.9 and H/O motion sickness Z87.898 [facility] [address] [facility] [id number] [address] [place] [phone] 24 Apr, 2016 History of DVT (deep vein th rombosis) Z86.718 [place] [address] [facility] [id number] [address] [place] [phone] Apr, History of DVT (deep vein th rombosis) Z86.718 [facility] [address] [facility] [id number] [address] [place] [id number] 15 Apr, 2016 History of DVT (deep vein th rombosis) Z86.718 [facility] [address] [facility] [id number] [address] [place] [phone] 14 Apr, 2016 half-way (current) use of a nticoagulants Z79.01 [facility] [address] [facility] [id number] [address] [place] [id number] Mar, [facility] [address] [id number] [address] [place] [phone] Mar, half-way (current) use of a nticoagulants Z79.01 [facility] [address] [id number] [address] [place] [phone] Mar, Hypertriglyceridemia E78.1 a nd half-way (current) use of anticoagulants Z79.01 [facility] [address] [id number] [address] [place] [phone] Feb, 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 nticoagulants Z79.01 [facility] [address] [id number] [address] [place] [phone] Feb, half-way (current) use of a nticoagulants Z79.01 [facility] [address] [id number] [address] [place] [phone] Feb, half-way (current) use of a nticoagulants Z79.01 [facility] [address] [id number] [address] [place] [phone] Dec, [facility] [address] [id number] [address] [place] [phone] Nov, [facility] [address] [id number] [address] [place] [phone] Nov, History of DVT (deep vein th rombosis) Z86.718 ; Tremulousness R25.1 ; Generalized anxiety disorder F41.1 ; Peripheral edema R60.9 and Hypertriglyceridemia E78.1 [facility] [address] [id number] [address] [place] [phone] Oct, History of DVT (deep vein th rombosis) Z86.718 [facility] [address] [id number] [address] [place] [phone] Oct, [facility] [address] [id number] [address] [place] [phone] Sep, History of DVT (deep vein th rombosis) Z86.718 [facility] [address] [id number] [address] [place] [phone] Sep, half-way (current) use of a nticoagulants Z79.01 [facility] [address] [id number] [address] [place] [phone] July, [place] [address] [id number] [address] [place] [phone] July, 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 nticoagulants Z79.01 [place] [address] [id number] [address] [place] [phone] July, 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 nticoagulants Z79.01 [place] [address] [id number] [address] [place] [phone] Jun, half-way (current) use of a nticoagulants Z79.01 [facility] [address] [id number] [address] [place] [phone] Jun, Coccyx pain M53.3 ; Encounte r for therapeutic drug level monitoring Z51.81 and half-way current use 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.01 [place] [address] [id number] [address] [place] [phone] May, Abnormal mammogram R92.8 [facility] [address] [id number] [address] [place] [phone] May, [facility] [id number] [address] [place] [phone] May, Acute vaginitis N76.0 and En counter for other screening for malignant neoplasm of breast Z12.39 [place] [address] [id number] [address] [place] [phone] Apr, [facility] [address] [id number] [address] [place] [phone] Apr, [facility] [address] [id number] [address] [place] [phone] Apr, Peripheral edema R60.9 [facility] [address] [id number] [address] [place] [phone] Apr, 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 nticoagulants Z79.01 [facility] [address] [id number] [address] [place] [phone] Apr, Peripheral edema R60.9 and L jose martin term (current) 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 Z79.01 [place] [address] [id number] [address] [place] [phone] Apr, 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 nticoagulants Z79.01 [place] [address] [id number] [address] [place] [phone] Apr, [facility] [address] [id number] [address] [place] [phone] Apr, 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 nticoagulants Z79.01 [facility] [address] [id number] [address] [place] [phone] Apr, Peripheral edema R60.9 [facility] [address] [id number] [address] [place] [phone] Mar, 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 nticoagulants Z79.01 [facility] [address] [id number] [address] [place] [phone] Mar, half-way (current) use of a nticoagulants Z79.01 and Hypertriglyceridemia E78.1 [facility] [address] [id number] [address] [place] [phone] Mar, 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 nticoagulants Z79.01 [place] [address] [id number] [address] [place] [phone] Mar, half-way (current) use of a nticoagulants Z79.01 [facility] [address] [id number] [address] [place] [phone] Mar, [facility] [address] [id number] [address] [place] [phone] Mar, 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 nticoagulants Z79.01 ; Hypertriglyceridemia E78.1 ; Personal history of venous thrombosis and embolism Z86.718 and Lump R22.9 [place] [address] [id number] [address] [place] [address] Mar, Personal history of venous t hrombosis and embolism Z86.718 [place] [address] [id number] [address] [place] [address] Mar, Personal history of venous t hrombosis and embolism Z86.718 [place] [address] [id number] [address] [place] [address] Mar, [place] [address] [id number] [address] [place] [address] Dec, Personal history of venous t hrombosis and embolism Z86.718 [place] [address] [id number] [address] [place] [address] Dec, Personal history of venous t hrombosis and embolism V12.51 [place] [address] [id number] [address] [place] [address] 28 Nov, 2014 Personal history of venous t hrombosis and embolism V12.51 [place] [address] [id number] [address] [place] [address] 25 Nov, 2014 Personal history of venous t hrombosis and embolism V12.51 [place] [address] [id number] [address] [place] [id number] 17 Nov, 2014 Personal history of venous t hrombosis and embolism V12.51 [place] [address] [id number] [address] [place] [address] Nov, Personal history of venous t hrombosis and embolism V12.51 [facility] [address] [id number] [address] [place] [address] Nov, [facility] [address] [id number] [address] [place] [address] Oct, Dysuria 788.1 [facility] [address] [id number] [address] [place] [address] Oct, Personal history of venous t hrombosis and embolism V12.51 [facility] [address] [id number] [address] [place] [address] Oct, [facility] [address] [id number] [address] [place] [address] Oct, Personal history of venous t hrombosis and embolism V12.51 [facility] [address] [id number] [address] [place] [address] Sep, Personal history of venous t hrombosis and embolism V12.51 [facility] [address] [id number] [address] [place] [phone] Sep, Personal history of venous t hrombosis and embolism V12.51 [facility] [address] [id number] [address] [place] [id number] Aug, Personal history of venous t hrombosis and embolism V12.51 [facility] [address] [id number] [address] [place] [address] Aug, Personal history of venous t hrombosis and embolism V12.51 [facility] [address] [id number] [address] [place] [address] Aug, Personal history of venous t hrombosis and embolism V12.51 [facility] [address] [id number] [address] [place] [address] July, Generalized anxiety disorder 300.02 ; Abdominal pain, left lower quadrant 789.04 and Personal history of venous thrombosis and embolism V12.51 [facility] [address] [id number] [address] [place] [address], [place] [address] 14 Jun, 2014 [facility] [address] [id number] [address] [place] [address], [place] [address] Jun, [facility] [address] [id number] [address] [place] [address], [place] [address] May, [facility] [address] [id number] [address] [place] [address], [place] [address] May, [facility] [address] [id number] [address] [place] [address], [place] [address] May, [facility] [address] [id number] [address] [place] [address], [place] [address] May, [facility] [address] [id number] [address] [place] [address] May, [facility] [address] [id number] [address] [place] [address], [place] [address] May, [facility] [address] [id number] [address] [place] [address], [place] [address] May, [facility] [address] [id number] [address] [place] [address], [place] [address] May, [facility] [address] [id number] [address] [place] [address], [place] [address] Apr, [facility] [address] [id number] [address] [place] [address], [place] [address] Apr, [facility] [address] [id number] [address] [place] [address], [place] [address] Apr, [facility] [address] [id number] [address] [place] [address] Apr, [facility] [address] [id number] [address] [place] [address] Apr, [facility] [address] [id number] [address] [place] [address], [place] [address] Mar, [facility] [address] [id number] [address] [place] [address], [place] [address] Mar, [facility] [address] [id number] [address] [place] [address], [place] [address] Mar, [facility] [address] [id number] [address] [place] [address], [place] [address] Mar, [facility] [address] [id number] [address] [place] [address], [place] [address] Mar, [facility] [address] [id number] [address] [place] [address], [place] [address] Mar, [facility] [address] [id number] [address] [place] [address], [place] [address] Feb, [facility] [address] [id number] [address] [place] [address], [place] [address] Feb, [facility] [address] [id number] [address] [place] [address], [place] [address] Feb, [facility] [address] [id number] [address] [place] [address], [place] [address] Feb, [facility] [address] [id number] [address] [place] [address], [place] [address] Feb, [facility] [address] [id number] [address] [place] [address], [place] [address] Feb, [facility] [address] [id number] [address] [place] [address], [place] [address] Feb, [facility] [address] [id number] [address] [place] [address], [place] [address] Feb, [facility] [address] [id number] [address] [place] [address], [place] [address] Feb, [facility] [address] [id number] [address] [place] [address] Feb, [facility] [address] [id number] [address] [place] [address], [place] [address] Jan, [facility] [address] [id number] [address] [place] [address], [place] [address] Jan, [facility] [address] [id number] [address] [place] [address], [place] [address] Jan, [facility] [address] [id number] [address] [place] [address] Jan, [facility] [address] [id number] [address] [place] [address], [place] [address] Jan, [facility] [address] [id number] [address] [place] [address], [place] [address] Jan, [facility] [address] [id number] [address] [place] [address], [place] [address] Jan, [facility] [address] [id number] [address] [place] [address], [place] [address] Jan, [facility] [address] [id number] [address] [place] [address], [place] [address] Jan, [facility] [address] [id number] [address] [place] [address], [place] [address] Jan, [facility] [address] [id number] [address] [place] [address] Dec, [facility] [address] [id number] [address] [place] [address] Dec, [facility] [address] [id number] [address] [place] [address], [place] [address] Dec, [facility] [address] [id number] [address] [place] [address], [place] [address] Dec, [facility] [address] [id number] [address] [place] [address], [place] [address] Dec, [facility] [address] [id number] [address] [place] [address], [place] [address] Dec, [facility] [address] [id number] [address] [place] [address], [place] [address] Dec, [facility] [address] [id number] [address] [place] [address], [place] [address] Dec, [facility] [address] [id number] [address] [place] [address], [place] [address] Dec, [facility] [address] [id number] [address] [place] [address], [place] [address] Dec, [facility] [address] [id number] [address] [place] [address], [place] [address] Dec, [facility] [address] [id number] [address] [place] [address], [place] [address] Dec, [facility] [address] [id number] [address] [place] [address], [place] [address] Dec, [facility] [address] [id number] [address] [place] [address], [place] [address] Dec, [facility] [address] [id number] [address] [place] [address], [place] [address] Dec, [facility] [address] [id number] [address] [place] [address], [place] [address] 30 Nov, 2013 [facility] [address] [id number] [address] [place] [address], [place] [address] 30 Nov, 2013 [facility] [address] [id number] [address] [place] [address], [place] [address] 26 Nov, 2013 [facility] [address] [id number] [address] [place] [address], [place] [address] Nov, 2013 [facility] [address] [id number] [address] [place] [address], [place] [address] 24 Nov, 2013 [facility] [address] [id number] [address] [place] [address], [place] [address] 24 Nov, 2013 [facility] [address] [id number] [facility] [address] 23 Nov, 2013 [facility] [address] [id number] [facility] [address] 23 Nov, 2013 [facility] [address] [id number] [address] [place] [address], [place] [address] 18 Nov, 2013 [facility] [address] [id number] [address] [place] [address], [place] [address] 18 Nov, 2013 [facility] [address] [id number] [address] [place] [address], [place] [address] 17 Nov, 2013 [facility] [address] [id number] [address] [place] [address], [place] [address] 17 Nov, 2013 [facility] [address] [id number] [address] [place] [address], [place] [address] 11 Nov, 2013 [facility] [address] [id number] [address] [place] [address], [place] [address] 11 Nov, 2013 [facility] [address] [id number] [address] [place] [address], [place] [address] 10 Nov, 2013 [facility] [address] [id number] [address] [place] [address], [place] [address] 10 Nov, 2013 [facility] [address] [id number] [address] [place] [address], [place] [address] 08 Nov, 2013 [facility] [address] [id number] [address] [place] [address], [place] [address] 08 Nov, 2013 [facility] [address] [id number] [address] [place] [address], [place] [address] Sep, [facility] [address] [id number] [address] [place] [address], [place] [address] Sep, 2013 [facility] [address] [id number] [address] [place] [address], [place] [address] 11 Sep, 2013 [facility] [address] [id number] [address] [place] [address], [place] [address] Sep, [facility] [address] [id number] [facility] [address] Sep, [facility] [address] [id number] [address] [place] [address], [place] [address] Sep, [facility] [address] [id number] [facility] [address] Aug, [facility] [address] [id number] [address] [place] [address], [place] [address] Aug, [facility] [address] [id number] [address] [place] [address], [place] [address] Aug, [facility] [address] [id number] [address] [place] [address], [place] [address] Aug, [facility] [address] [id number] [address] [place] [address], [place] [address] Aug, [facility] [address] [id number] [address] [place] [address], [place] [address] Aug, [facility] [address] [id number] [address] [place] [address], [place] [address] Aug, [facility] [address] [id number] [address] [place] [address], [place] [address] Aug, [facility] [address] [id number] [address] [place] [address], [place] [address] Aug, [facility] [address] [id number] [address] [place] [address], [place] [address] Aug, [facility] [address] [id number] [address] [place] [address], [place] [address] Aug, [facility] [address] [id number] [address] [place] [address], [place] [address] July, [facility] [address] [id number] [address] [place] [address], [place] [address] July, [facility] [address] [id number] [facility] [address] Jun, [facility] [address] [id number] [facility] [address] Jun, [facility] [address] [id number] [address] [place] [address], [place] [address] Jun, [facility] [address] [id number] [address] [place] [address], [place] [address] Jun, [facility] [address] [id number] [address] [place] [address], [place] [address] Jun, [facility] [address] [id number] [address] [place] [address], [place] [address] Jun, [facility] [address] [id number] [address] [place] [address], [place] [address] Jun, [facility] [address] [id number] [address] [place] [address], [place] [address] Jun, [facility] [address] [id number] [address] [place] [address], [place] [address] Jun, [facility] [address] [id number] [address] [place] [address], [place] [address] Jun, [facility] [address] [id number] [address] [place] [address], [place] [address] Jun, [facility] [address] [id number] [address] [place] [address], [place] [address] Jun, [facility] [address] [id number] [address] [place] [address], [place] [address] May, [facility] [address] [id number] [address] [place] [address], [place] [address] May, [facility] [address] [id number] [address] [place] [address], [place] [address] May, [facility] [address] [id number] [address] [place] [address], [place] [address] May, [facility] [address] [id number] [facility] [address] May, [facility] [address] [id number] [address] [place] [address], [place] [address] May, [facility] [address] [id number] [address] [place] [address], [place] [address] May, [facility] [address] [id number] [address] [place] [address], [place] [address] May, [facility] [address] [id number] [address] [place] [address], [place] [address] May, [facility] [address] [id number] [address] [place] [address], [place] [address] May, [facility] [address] [id number] [address] [place] [address], [place] [address] May, [facility] [address] [id number] [address] [place] [address], [place] [address] May, [facility] [address] [id number] [address] [place] [address], [place] [address] Apr, [facility] [address] [id number] [address] [place] [address], [place] [address] Apr, [facility] [address] [id number] [address] [place] [address], [place] [address] Apr, [facility] [address] [id number] [address] [place] [address], [place] [address] Apr, [facility] [address] [id number] [address] [place] [address], [place] [address] Apr, [facility] [address] [id number] [address] [place] [address], [place] [address] Apr, [facility] [address] [id number] [address] [place] [address], [place] [address] Apr, [facility] [address] [id number] [address] [place] [address], [place] [address] Apr, [facility] [address] [id number] [address] [place] [address], [place] [address] Apr, [facility] [address] [id number] [address] [place] [address], [place] [address] Apr, [facility] [address] [id number] [address] [place] [address], [place] [address] Apr, [facility] [address] [id number] [address] [place] [address], [place] [address] Apr, [facility] [address] [id number] [address] [place] [address], [place] [address] Apr, [facility] [address] [id number] [address] [place] [address], [place] [address] Apr, [facility] [address] [id number] [address] [place] [address], [place] [address] Apr, [facility] [address] [id number] [address] [place] [address], [place] [address] Apr, [facility] [address] [id number] [address] [place] [address], [place] [address] Apr, [facility] [address] [id number] [address] [place] [address], [place] [address] Jan, [facility] [address] [id number] [address] [place] [address] Jan, [facility] [address] [id number] [address] [place] [address], [place] [address] Jan, [facility] [address] [id number] [address] [place] [address], [place] [address] Jan, [facility] [address] [id number] [address] [place] [address], [place] [address] Jan, [facility] [address] [id number] [address] [place] [address], [place] [address] 07 Jan, 2013 [facility] [address] [id number] [address] [place] [address], [place] [address] Jan, [facility] [address] [id number] [address] [place] [address], [place] [address] Dec, [facility] [address] [id number] [address] [place] [address], [place] [address] Dec, [facility] [address] [id number] [address] [place] [address], [place] [address] Dec, [facility] [address] [id number] [address] [place] [address], [place] [address] Nov, [facility] [address] [id number] [address] [place] [address], [place] [address] Nov, [facility] [address] [id number] [address] [place] [address], [place] [address] 05 Nov, 2012 [facility] [address] [id number] [address] [place] [address], [place] [address] Nov, [facility] [address] [id number] [address] [place] [address], [place] [address] Oct, [facility] [address] [id number] [address] [place] [address], [place] [address] Oct, [facility] [address] [id number] [address] [place] [address], [place] [address] Oct, [facility] [address] [id number] [address] [place] [address], [place] [address] Oct, [facility] [address] [id number] [address] [place] [address], [place] [address] Oct, [facility] [address] [id number] [address] [place] [address], [place] [address] Sep, [facility] [address] [id number] [address] [place] [address], [place] [address] Sep, [facility] [address] [id number] [address] [place] [address], [place] [address] Sep, [facility] [address] [id number] [address] [place] [address], [place] [address] Sep, [facility] [address] [id number] [address] [place] [address], [place] [address] Sep, [facility] [address] [id number] [address] [place] [address], [place] [address] Sep, [facility] [address] [id number] [address] [place] [address], [place] [address] Sep, [facility] [address] [id number] [address] [place] [address], [place] [address] Aug, [facility] [address] [id number] [address] [place] [address], [place] [address] Aug, [facility] [address] [id number] [address] [place] [address], [place] [address] July, [facility] [address] [id number] [address] [place] [address], [place] [address] Jun, [facility] [address] [id number] [address] [place] [address], [place] [address] Jun, [facility] [address] [id number] [address] [place] [address], [place] [address] Jun, [facility] [address] [id number] [address] [place] [address], [place] [address] Apr, [facility] [address] [id number] [address] [place] [address], [place] [address] Apr, [facility] [address] [id number] [address] [place] [address], [place] [address] Apr, [facility] [address] [id number] [address] [place] [address], [place] [address] Mar, [facility] [address] [id number] [address] [place] [id number] 24 Mar, 2012 [facility] [address] [id number] [address] [place] [address], [place] [address] 2012 [facility] [address] [id number] [address] [place] [address], [place] [address] 09 Mar, 2012 [facility] [address] [id number] [address] [place] [address], [place] [address] 07 Mar, 2012 [facility] [address] [id number] [address] [place] [address] 14 Feb, 2012 [facility] [address] [id number] [address] [place] [address], [place] [address] 14 Feb, 2012 [facility] [address] [id number] [address] [place] [address], [place] [address] 13 Jan, 2012 [facility] [address] [id number] [address] [place] [address], [place] [address] 13 Jan, 2012 [facility] [address] [id number] [address] [place] [address], [place] [address] 13 Jan, 2012 [facility] [address] [id number] [address] [place] [address], [place] [address] 13 Jan, 2012 [facility] [address] [id number] [address] [place] [address], [place] [address] 07 Jan, 2012 [facility] [address] [id number] [address] [place] [address], [place] [address] 07 Jan, 2012 [facility] [address] [id number] [address] [place] [address], [place] [address] Jan, [facility] [address] [id number] [address] [place] [address], [place] [address] 31 Dec, 2011 [facility] [address] [id number] [address] [place] [address], [place] [address] 31 Dec, 2011 [facility] [address] [id number] [address] [place] [address], [place] [address] 30 Dec, 2011 [facility] [address] [id number] [address] [place] [address], [place] [address] Dec, [facility] [address] [id number] [address] [place] [address], [place] [address] Dec, [facility] [address] [id number] [address] [place] [address], [place] [address] Dec, [facility] [address] [id number] [address] [place] [address], [place] [address] Dec, [facility] [address] [id number] [address] [place] [address], [place] [address] Dec, [facility] [address] [id number] [address] [place] [address], [place] [address] Dec, [facility] [address] [id number] [address] [place] [address], [place] [address] Dec, [facility] [facility] [address] [id number] [address] [place] [address], [place] [address] Oct, [facility] [address] [id number] [address] [place] [address], [place] [address] Oct, [facility] [address] [id number] [address] [place] [address], [place] [address] Aug, [facility] [address] [id number] [address] [place] [address], [place] [address] Aug, [facility] [address] [id number] [address] [place] [address], [place] [address] July, [facility] [address] [id number] [address] [place] [address], [place] [address] Jun, [facility] [address] [id number] [address] [place] [address], [place] [address] Jun, [facility] [address] [id number] [address] [place] [address], [place] [address] May, [facility] [address] [id number] [address] [place] [address], [place] [address] Apr, [facility] [address] [id number] [address] [place] [address], [place] [address] 16 Apr, 2011 [facility] [address] [id number] [address] [place] [address], [place] [address] 19 Mar, 2011 [facility] [address] [id number] [address] [place] [address], [place] [address] 16 Mar, 2011 [facility] [address] [id number] [address] [place] [address], [place] [address] 19 Feb, 2011 [facility] [address] [id number] [address] [place] [address], [place] [address] 15 Feb, 2011 [facility] [address] [id number] [address] [place] [address], [place] [address] 13 Feb, 2011 [facility] [address] [id number] [address] [place] [address], [place] [address] Feb, [facility] [address] [id number] [address] [place] [address], [place] [address] Jan, [facility] [address] [id number] [address] [place] [address], [place] [address] 17 Dec, 2010 [facility] [address] [id number] [address] [place] [id number] 08 Feb, 2010 [facility] [address] [id number] [address] [place] [address], [place] [address] 02 Feb, 2010 [facility] [address] [id number] [address] [place] [id number] Feb, [facility] [address] [id number] [address] [place] [address], [place] [address] Feb, [facility] [address] [id number] [address] [place] [id number] 15 Dec, 2009 [facility] [address] [id number] [address] [place] [address], [place] [address] 15 Dec, 2009 [facility] [address] [id number] [address] [place] [id number] Oct, [facility] [address] [facility] [id number] [address] [place] [id number] Jun, [facility] [address] [facility] [id number] [address] [place] [id number] Feb, [facility] [address] [facility] [id number] [address] [place] [id number] Feb, [facility] [address] [facility] [id number] [address] [place] [id number] Feb, [facility] [address] [facility] [id number] [address] [place] [id number] Dec, IMMUNIZATIONS No Known Immunizations SOCIAL HISTORY [...]
--- OUTSIDE RECORDS SUMMARY | 2019-10-19 12:25 | XMS REPORT ---
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 Active 093917058 Problem Hypertriglyceridemia E78.1 Active 531757145 Problem 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 Active 349475714 Problem Pelvic pain R10.2 Active 17073061 Problem Peripheral edema R60.9 Active 271 178317 Problem Moderate episode of recurrent major depressive disorder F33.1 Active 208234947 Problem Presence of IVC filter Z95.828 Active 244295840 Problem Vitamin D deficiency E55.9 Active 99030435 Problem Generalized anxiety disorder F41.1 A ctive 374219417 Problem Excessive daytime sleepiness G47.19 A ctive 789993465813 Problem Gastroesophageal reflux disease, esophagitis pre sence not specified K21.9 Active 766934600 Problem Thyroid nodule E04.1 Active 67241 5005 Problem Morbid obesity E66.01 Active 14339 6002 ALLERGIES No Information ENCOUNTERS Encounter Location Date Diagnosis [facility] [address] [facility] [id number] [address] [place] [phone] July, [facility] [address] [facility] [id number] [address] [place] [phone] 28 Jun, 2019 [facility] [address] [facility] [id number] [address] [place] [phone] 15 Jun, 2019 Back pain with history of sp inal surgery M54.9 [facility] [address] [id number] [address] [place] [phone] 12 Apr, 2019 Back pain with history of sp inal surgery M54.9 [facility] [address] [id number] [address] [place] [phone] 11 Apr, 2019 [facility] [address] [id number] [address] [place] [phone] 10 Apr, 2019 Gastroenteritis K52.9 ; Back pain with history of spinal surgery M54.9 ; Dermatofibroma of lower leg, unspecified laterality D23.70 and Morbid obesity E66.01 [facility] [address] [id number] [address] [place] [address] Mar, [facility] [address] [facility] [id number] [address] [place] [phone] Jan, [place] [address] [facility] [id number] [address] [place] [phone] Jan, [facility] [address] [id number] [address] [place] [address] Dec, Encounter for weight managem ent Z76.89 [place] [address] [facility] [id number] [address] [place] [phone] Dec, Encounter for weight managem ent Z76.89 and Screening mammogram, encounter for Z12.31 [place] [address] [facility] [id number] [address] [place] [address] Nov, Encounter for weight managem ent Z76.89 [place] [address] [id number] [address] [place] [phone] Nov, Thyroid nodule E04.1 [place] [address] [facility] [id number] [address] [place] [phone] Nov, Thyroid nodule E04.1 [place] [address] [facility] [id number] [address] [place] [address] Nov, Thyroid nodule E04.1 [facility] [address] [facility] [id number] [address] [place] [address] Oct, Syncope, unspecified syncope type R55 and Encounter for weight management Z76.89 [facility] [address] [facility] [id number] [address] [place] [address] Oct, Morbid obesity E66.01 [facility] [address] [facility] [id number] [address] [place] [phone] Oct, Hypertriglyceridemia E78.1 [facility] [address] [facility] [id number] [address] [place] [phone] Oct, [facility] [address] [place] [id number] [place] [phone] Oct, Hypertriglyceridemia E78.1 [facility] [address] [place] [id number] [address] [place] [phone] Sep, Hypertriglyceridemia E78.1 a nd Vitamin D deficiency E55.9 [facility] [address] [place] [id number] [address] [place] [address] Sep, [facility] [address] [place] [id number] [place] [phone] Sep, Morbid obesity E66.01 ; Mode rate episode of recurrent major depressive disorder F33.1 ; Hypertriglyceridemia E78.1 and Vitamin D deficiency E55.9 [place] [address] [facility] [id number] [address] [place] [address] Aug, [facility] [address] [place] [id number] [address] [place] [phone] July, [facility] [address] [facility] [id number] [address] [place] [phone] July, [facility] [address] [place] [id number] [address] [place] [address] Jun, [facility] [address] [facility] [id number] [address] [place] [address] Jun, [facility] [address] [facility] [id number] [address] [place] [address] Jun, Closed compression fracture of L3 lumbar vertebra with routine healing, subsequent encounter S32.030D and Drug-induced constipation K59.03 [facility] [address] [id number] [address] [place] [phone] Jun, [facility] [address] [facility] [id number] [place] [phone] Jun, [facility] [address] [facility] [id number] [address] [place] [address] Apr, [facility] [address] [facility] [id number] [place] [phone] Apr, Morbid obesity E66.01 [facility] [address] [place] [id number] [place] [phone] Apr, Morbid obesity E66.01 ; Hype rtriglyceridemia E78.1 ; Gastroesophageal reflux disease, esophagitis presence not specified K21.9 and Joint pain M25.50 [facility] [address] [facility] [id number] [address] [place] [phone] Feb, [facility] [address] [place] [id number] [address] [place] [address] Feb, [facility] [address] [facility] [id number] [address] [place] [phone] Jan, Acute bacterial conjunctivit is H10.30 [facility] [address] [facility] [id number] [address] [place] [phone] Dec, [facility] [address] [facility] [id number] [address] [place] [address] Dec, [facility] [address] [facility] [id number] [address] [place] [phone] Nov, [facility] [address] [facility] [id number] [address] [place] [address] Nov, Obstructive sleep apnea G47. 33 ; Morbid obesity E66.01 and Gastroesophageal reflux disease, esophagitis presence not specified K21.9 [facility] [address] [id number] [address] [place] [id number] 06 Nov, 2017 Encounter for examination of eyes and vision without abnormal findings Z01.00 [facility] [address] [facility] [id number] [address] [place] [address] Oct, Thyroid nodule E04.1 and Scr eening for breast cancer Z12.31 [facility] [address] [facility] [id number] [address] [place] [address] Oct, History of DVT (deep vein th rombosis) Z86.718 ; Thyroid nodule E04.1 and Gastroesophageal reflux disease, esophagitis presence not specified K21.9 [facility] [address] [facility] [id number] [address] [place] [phone] Oct, [place] [address] [place] [id number] [address] [place] [address] Sep, [facility] [address] [facility] [id number] [address] [place] [address] Aug, [place] [address] [place] [id number] [place] [phone] Aug, [place] [address] [place] [id number] [address] [place] [address] Aug, Acute pain of left shoulder M25.512 and Thyroid nodule E04.1 [place] [address] [place] [id number] [address] [place] [address] July, Superior glenoid labrum lesi on of left shoulder, subsequent encounter S43.432D [place] [address] [place] [id number] [address] [place] [phone] Jun, History of DVT (deep vein th rombosis) Z86.718 [facility] [address] [facility] [id number] [address] [place] [address] Jun, History of DVT (deep vein th rombosis) Z86.718 [place] [address] [id number] [address] [place] [phone] Jun, Impingement syndrome, should er, left M75.42 [place] [address] [id number] [address] [place] [address] May, Subacromial bursitis of left shoulder joint M75.52 [place] [address] [facility] [id number] [address] [place] [address] May, [place] [address] [facility] [id number] [address] [place] [phone] May, Hypertriglyceridemia E78.1 ; 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 and Excessive daytime sleepiness G47.19 [place] [address] [facility] [id number] [address] [place] [address] May, History of DVT (deep vein th rombosis) Z86.718 ; Generalized anxiety disorder F41.1 ; Hypertriglyceridemia E78.1 ; snf (current) use of anticoagulants Z79.01 ; Subacromial bursitis of left shoulder joint M75.52 and Excessive daytime sleepiness G47.19 [place] [address] [facility] [id number] [address] [place] [address] May, [place] [address] [facility] [id number] [address] [place] [phone] May, 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 [place] [address] [id number] [address] [place] [address] Apr, 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 [place] [address] [facility] [id number] [address] [place] [address] Apr, snf (current) use of a nticoagulants Z79.01 [place] [address] [facility] [id number] [address] [place] [phone] Apr, 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 [facility] [address] [id number] [address] [place] [address] Apr, [facility] [address] [id number] [address] [place] [address] Apr, snf (current) use of a nticoagulants Z79.01 [facility] [address] [id number] [address] [place] [phone] Apr, snf (current) use of a nticoagulants Z79.01 [facility] [address] [id number] [address] [place] [address] Apr, snf (current) use of a nticoagulants Z79.01 [facility] [address] [id number] [address] [place] [address] Apr, 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 [facility] [address] [id number] [address] [place] [address] Apr, snf (current) use of a nticoagulants Z79.01 [facility] [address] [id number] [address] [place] [address] Apr, snf (current) use of a nticoagulants Z79.01 [facility] [address] [id number] [address] [place] [address] Mar, 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 [facility] [address] [id number] [address] [place] [address] Mar, [facility] [address] [id number] [address] [place] [phone] Mar, snf (current) use of a nticoagulants Z79.01 [facility] [address] [id number] [address] [place] [id number] Jan, Dental examination Z01.20 [facility] [address] [id number] [address] [place] [id number] Jan, [facility] [address] [facility] [id number] [address] [place] [phone] Jan, snf (current) use of a nticoagulants Z79.01 [facility] [address] [facility] [id number] [address] [place] [address] Jan, History of DVT (deep vein th rombosis) Z86.718 [facility] [address] [facility] [id number] [address] [place] [phone] Jan, Generalized anxiety disorder F41.1 and Peripheral edema R60.9 [place] [address] [facility] [id number] [address] [place] [address] Nov, History of DVT (deep vein th rombosis) Z86.718 [facility] [address] [facility] [id number] [address] [place] [address] Nov, 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 [facility] [address] [facility] [id number] [address] [place] [address] Nov, Acute non-recurrent maxillar y sinusitis J01.00 [facility] [address] [facility] [id number] [address] [place] [address] Oct, snf (current) use of a nticoagulants Z79.01 [facility] [address] [facility] [id number] [address] [place] [address] Oct, Personal history of venous t hrombosis and embolism Z86.718 [facility] [address] [facility] [id number] [address] [place] [address] Sep, [facility] [address] [facility] [id number] [address] [place] [address] Sep, Personal history of venous t hrombosis and embolism Z86.718 [facility] [address] [facility] [id number] [address] [place] [address] Sep, 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 [place] [address] [facility] [id number] [address] [place] [address] Sep, snf (current) use of a nticoagulants Z79.01 [place] [address] [facility] [id number] [address] [place] [address] Sep, Generalized anxiety disorder F41.1 and History of DVT (deep vein thrombosis) Z86.718 [place] [address] [facility] [id number] [address] [place] [address] Aug, History of DVT (deep vein th rombosis) Z86.718 ; Generalized anxiety disorder F41.1 ; snf (current) use of anticoagulants Z79.01 ; Pelvic pain R10.2 ; Hypertriglyceridemia E78.1 ; Excessive daytime sleepiness G47.19 ; Colon cancer screening Z12.11 ; Screening for breast cancer Z12.39 ; Peripheral edema R60.9 and Gastroesophageal reflux disease, esophagitis presence not specified K21.9 [place] [address] [place] [id number] [address] [place] [address] Aug, [place] [address] [place] [id number] [address] [place] [address] July, [place] [address] [place] [id number] [address] [place] [address] July, History of DVT (deep vein th rombosis) Z86.718 [place] [address] [facility] [id number] [address] [place] [address] Jun, Generalized anxiety disorder F41.1 [place] [address] [place] [id number] [address] [place] [address] Jun, History of DVT (deep vein th rombosis) Z86.718 [place] [address] [place] [id number] [address] [place] [address] Jun, History of DVT (deep vein th rombosis) Z86.718 [facility] [address] [id number] [address] [place] [address] Jun, History of DVT (deep vein th rombosis) Z86.718 [facility] [address] [facility] [id number] [address] [place] [address] Jun, History of DVT (deep vein th rombosis) Z86.718 [facility] [address] [id number] [address] [place] [address] May, History of DVT (deep vein th rombosis) Z86.718 [place] [address] [facility] [id number] [address] [place] [address] May, 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 [place] [address] [facility] [id number] [address] [place] [address] May, snf (current) use of a nticoagulants Z79.01 [facility] [address] [facility] [id number] [address] [place] [address] May, History of DVT (deep vein th rombosis) Z86.718 [facility] [address] [facility] [id number] [address] [place] [phone] Apr, Bacterial conjunctivitis of left eye H10.9 and H/O motion sickness Z87.898 [facility] [address] [facility] [id number] [address] [place] [address] Apr, History of DVT (deep vein th rombosis) Z86.718 [facility] [address] [facility] [id number] [address] [place] [address] Apr, History of DVT (deep vein th rombosis) Z86.718 [facility] [address] [facility] [id number] [address] [place] [address] Apr, History of DVT (deep vein th rombosis) Z86.718 [facility] [address] [id number] [address] [place] [address] 14 Apr, 2016 snf (current) use of a nticoagulants Z79.01 [facility] [address] [id number] [address] [place] [address] Mar, [facility] [address] [id number] [address] [place] [address] Mar, 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 [place] [address] [id number] [address] [place] [address] Mar, Hypertriglyceridemia E78.1 a nd snf (current) use of anticoagulants Z79.01 [place] [address] [id number] [address] [place] [address] Feb, 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 [place] [address] [id number] [address] [place] [address] Feb, snf (current) use of a nticoagulants Z79.01 [place] [address] [id number] [address] [place] [address] Feb, 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 [place] [address] [id number] [address] [place] [address] Dec, [facility] [address] [id number] [address] [place] [address] Nov, [place] [address] [id number] [address] [place] [address] 13 Nov, 2015 History of DVT (deep vein th rombosis) Z86.718 ; Tremulousness R25.1 ; Generalized anxiety disorder F41.1 ; Peripheral edema R60.9 and Hypertriglyceridemia E78.1 [place] [address] [id number] [address] [place] [address] Oct, History of DVT (deep vein th rombosis) Z86.718 [facility] [address] [id number] [address] [place] [address] Oct, [facility] [address] [id number] [address] [place] [address] Sep, History of DVT (deep vein th rombosis) Z86.718 [facility] [address] [id number] [address] [place] [address] Sep, 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 [facility] [address] [id number] [address] [place] [address] July, [place] [address] [id number] [address] [place] [address] July, snf (current) use of a nticoagulants Z79.01 [place] [address] [id number] [address] [place] [address] July, 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 [place] [address] [id number] [address] [place] [phone] Jun, snf (current) use of a nticoagulants Z79.01 [facility] [address] [id number] [address] [place] [phone] Jun, Coccyx pain M53.3 ; Encounte r for therapeutic drug level monitoring Z51.81 and 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 supervisor current use 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.01 [facility] [address] [id number] [address] [place] [phone] May, Abnormal mammogram R92.8 [facility] [address] [facility] [id number] [address] [place] [phone] May, [facility] [address] [facility] [id number] [address] [place] [phone] 06 Mar, 2016 Acute vaginitis N76.0 and En counter for other screening for malignant neoplasm of breast Z12.39 [facility] [address] [id number] [address] [place] [phone] Apr, [facility] [address] [id number] [address] [place] [phone] Apr, [facility] [address] [facility] [id number] [address] [place] [phone] Apr, Peripheral edema R60.9 [facility] [address] [id number] [address] [place] [phone] Apr, snf (current) use of a nticoagulants Z79.01 [place] [address] [facility] [id number] [address] [place] [phone] Apr, Peripheral edema R60.9 and L jose martin term (current) 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 Z79.01 [place] [id number] [id number] [address] [place] [phone] Apr, 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 [place] [address] [facility] [id number] [address] [place] [phone] Apr, [facility] [address] [facility] [id number] [address] [place] [phone] Apr, snf (current) use of a nticoagulants Z79.01 [place] [address] [id number] [address] [place] [phone] Apr, Peripheral edema R60.9 [facility] [address] [facility] [id number] [address] [place] [phone] Mar, snf (current) use of a nticoagulants Z79.01 [facility] [address] [facility] [id number] [address] [place] [address] [address] Mar, snf (current) use of a nticoagulants Z79.01 and Hypertriglyceridemia E78.1 [facility] [address] [id number] [address] [place] [address] Mar, snf (current) use of a nticoagulants Z79.01 [facility] [address] [id number] [address] [place] [address] Mar, 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 [place] [address] [id number] [address] [place] [address] Mar, [place] [address] [id number] [address] [place] [address] Mar, 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 ; Hypertriglyceridemia E78.1 ; Personal history of venous thrombosis and embolism Z86.718 and Lump R22.9 [place] [address] [id number] [address] [place] [address] Mar, Personal history of venous t hrombosis and embolism Z86.718 [place] [address] [id number] [address] [place] [address] Mar, Personal history of venous t hrombosis and embolism Z86.718 [place] [address] [id number] [address] [place] [address] Mar, [place] [address] [id number] [address] [place] [address] Dec, Personal history of venous t hrombosis and embolism Z86.718 [place] [address] [id number] [address] [place] [address] Dec, Personal history of venous t hrombosis and embolism V12.51 [place] [address] [id number] [address] [place] [address] Nov, Personal history of venous t hrombosis and embolism V12.51 [place] [address] [id number] [address] [place] [address] Nov, Personal history of venous t hrombosis and embolism V12.51 [facility] [address] [id number] [address] [place] [address] Nov, Personal history of venous t hrombosis and embolism V12.51 [facility] [address] [id number] [address] [place] [address] Nov, Personal history of venous t hrombosis and embolism V12.51 [facility] [address] [id number] [address] [place] [address] Nov, [facility] [address] [id number] [address] [place] [address] Oct, Dysuria 788.1 [facility] [address] [id number] [address] [place] [address] Oct, Personal history of venous t hrombosis and embolism V12.51 [facility] [address] [id number] [address] [place] [address] Oct, [facility] [address] [id number] [address] [place] [address] Oct, Personal history of venous t hrombosis and embolism V12.51 [facility] [address] [id number] [address] [place] [address] Sep, Personal history of venous t hrombosis and embolism V12.51 [facility] [address] [id number] [address] [place] [address] Sep, Personal history of venous t hrombosis and embolism V12.51 [facility] [address] [id number] [address] [place] [address] Aug, Personal history of venous t hrombosis and embolism V12.51 [facility] [address] [id number] [address] [place] [address] Aug, Personal history of venous t hrombosis and embolism V12.51 [facility] [address] [id number] [address] [place] [address] 15 Aug, 2014 Personal history of venous t hrombosis and embolism V12.51 [facility] [address] [id number] [address] [place] [address] July, Generalized anxiety disorder 300.02 ; Abdominal pain, left lower quadrant 789.04 and Personal history of venous thrombosis and embolism V12.51 [facility] [address] [id number] [address] [place] [address] 14 Jun, 2014 [facility] [address] [id number] [address] [place] [address] Jun, [facility] [address] [id number] [address] [place] [address] May, [facility] [address] [id number] [address] [place] [address] May, [facility] [address] [id number] [address] [place] [address] May, [facility] [address] [id number] [address] [place] [address] May, [facility] [address] [id number] [address] [place] [address] May, [facility] [address] [id number] [address] [place] [address] May, [facility] [address] [id number] [address] [place] [address] May, [facility] [address] [id number] [address] [place] [address] May, [facility] [address] [id number] [address] [place] [address] Apr, [facility] [address] [id number] [address] [place] [address] Apr, [facility] [address] [id number] [address] [place] [address] Apr, [facility] [address] [id number] [address] [place] [address], [place] [address] Apr, [facility] [address] [id number] [address] [place] [address], [place] [address] Apr, [facility] [address] [id number] [address] [place] [address], [place] [address] Mar, [facility] [address] [id number] [address] [place] [address], [place] [address] Mar, [facility] [address] [id number] [address] [place] [address], [place] [address] Mar, [facility] [address] [id number] [address] [place] [address], [place] [address] Mar, [facility] [address] [id number] [address] [place] [address], [place] [address] Mar, [facility] [address] [id number] [address] [place] [address], [place] [address] Mar, [facility] [address] [id number] [address] [place] [address], [place] [address] Feb, [facility] [address] [id number] [address] [place] [address], [place] [address] Feb, [facility] [address] [id number] [address] [place] [address], [place] [address] Feb, [facility] [address] [id number] [address] [place] [address], [place] [address] Feb, [facility] [address] [id number] [address] [place] [address], [place] [address] Feb, [facility] [address] [id number] [address] [place] [address], [place] [address] Feb, [facility] [address] [id number] [address] [place] [address], [place] [address] Feb, [facility] [address] [id number] [address] [place] [address], [place] [address] Feb, [facility] [address] [id number] [address] [place] [address], [place] [address] Feb, [facility] [address] [id number] [address] [place] [address], [place] [address] Feb, [facility] [address] [id number] [address] [place] [address], [place] [address] Jan, [facility] [address] [id number] [address] [place] [address], [place] [address] Jan, [facility] [address] [id number] [address] [place] [address], [place] [address] Jan, [facility] [address] [id number] [address] [place] [address], [place] [address] Jan, [facility] [address] [id number] [address] [place] [address], [place] [address] Jan, [facility] [address] [id number] [address] [place] [address], [place] [address] Jan, [facility] [address] [id number] [address] [place] [address], [place] [address] Jan, [facility] [address] [id number] [address] [place] [address], [place] [address] Jan, [facility] [address] [id number] [address] [place] [address], [place] [address] Jan, [facility] [address] [id number] [address] [place] [address], [place] [address] Jan, [facility] [address] [id number] [address] [place] [address], [place] [address] Dec, [facility] [address] [id number] [address] [place] [address], [place] [address] Dec, [facility] [address] [id number] [address] [place] [address], [place] [address] Dec, [facility] [address] [id number] [address] [place] [address], [place] [address] Dec, [facility] [address] [id number] [address] [place] [address], [place] [address] Dec, [facility] [address] [id number] [address] [place] [address], [place] [address] Dec, [facility] [address] [id number] [address] [place] [address], [place] [address] Dec, [facility] [address] [id number] [address] [place] [address], [place] [address] Dec, [facility] [address] [id number] [address] [place] [address], [place] [address] Dec, [facility] [address] [id number] [address] [place] [address], [place] [address] Dec, [facility] [address] [id number] [address] [place] [address], [place] [address] Dec, [facility] [address] [id number] [address] [place] [address], [place] [address] Dec, [facility] [address] [id number] [address] [place] [address] Dec, [facility] [address] [id number] [address] [place] [address], [place] [address] Dec, [facility] [address] [id number] [address] [place] [address] Dec, [facility] [address] [id number] [address] [place] [address], [place] [address] Nov, [facility] [address] [id number] [address] [place] [address], [place] [address] Nov, [facility] [address] [id number] [address] [place] [address], [place] [address] Nov, [facility] [address] [id number] [address] [place] [address], [place] [address] 26 Sep, 2013 [facility] [address] [id number] [facility] [place] [address] 24 Sep, 2013 [facility] [address] [id number] [facility] [place] [address] 24 Sep, 2013 [facility] [address] [id number] [address] [place] [address], [place] [address] 23 Sep, 2013 [facility] [address] [id number] [address] [place] [address], [place] [address] 23 Sep, 2013 [facility] [address] [id number] [address] [place] [address], [place] [address] 18 Sep, 2013 [facility] [address] [id number] [address] [place] [address], [place] [address] 18 Sep, 2013 [facility] [address] [id number] [address] [place] [address], [place] [address] 17 Sep, 2013 [facility] [address] [id number] [address] [place] [address], [place] [address] 17 Sep, 2013 [facility] [address] [id number] [address] [place] [address], [place] [address] 11 Nov, 2013 [facility] [address] [id number] [address] [place] [address], [place] [address] 11 Nov, 2013 [facility] [address] [id number] [address] [place] [address], [place] [address] 10 Nov, 2013 [facility] [address] [id number] [address] [place] [address], [place] [address] 10 Sep, 2013 [facility] [address] [id number] [address] [place] [address], [place] [address] 08 Sep, 2013 [facility] [address] [id number] [address] [place] [address], [place] [address] 08 Nov, 2013 [facility] [address] [id number] [address] [place] [address], [place] [address] 22 Sep2013 [facility] [address] [id number] [facility] [place] [address] Sep, [facility] [address] [id number] [facility] [place] [address] Sep, [facility] [address] [id number] [facility] [place] [address] Sep, [facility] [address] [id number] [facility] [place] [address] Sep, [facility] [address] [id number] [facility] [place] [address] Sep, [facility] [address] [id number] [address] [place] [address], [place] [address] Aug, [facility] [address] [id number] [address] [place] [address], [place] [address] Aug, [facility] [address] [id number] [address] [place] [address], [place] [address] Aug, [facility] [address] [id number] [address] [place] [address], [place] [address] Aug, [facility] [address] [id number] [address] [place] [address], [place] [address] Aug, [facility] [address] [id number] [address] [place] [address], [place] [address] Aug, [facility] [address] [id number] [address] [place] [address], [place] [address] Aug, [facility] [address] [id number] [address] [place] [address], [place] [address] Aug, [facility] [address] [id number] [address] [place] [address], [place] [address] Aug, [facility] [address] [id number] [address] [place] [address], [place] [address] Aug, [facility] [address] [id number] [address] [place] [address], [place] [address] Aug, [facility] [address] [id number] [address] [place] [address], [place] [address] July, [facility] [address] [id number] [address] [place] [address], [place] [address] July, [facility] [address] [id number] [address] [place] [address], [place] [address] Jun, [facility] [address] [id number] [address] [place] [address], [place] [address] Jun, [facility] [address] [id number] [address] [place] [address], [place] [address] Jun, [facility] [address] [id number] [address] [place] [address], [place] [address] Jun, [facility] [address] [id number] [address] [place] [address], [place] [address] Jun, [facility] [address] [id number] [address] [place] [address], [place] [address] Jun, [facility] [address] [id number] [address] [place] [address], [place] [address] Jun, [facility] [address] [id number] [address] [place] [address], [place] [address] Jun, [facility] [address] [id number] [address] [place] [address], [place] [address] Jun, [facility] [address] [id number] [address] [place] [address], [place] [address] Jun, [facility] [address] [id number] [address] [place] [address], [place] [address] Jun, [facility] [address] [id number] [address] [place] [address], [place] [address] Jun, [facility] [address] [id number] [address] [place] [address], [place] [address] May, [facility] [address] [id number] [facility] [place] [address] May, [facility] [address] [id number] [facility] [place] [address] May, [facility] [address] [id number] [facility] [place] [address] May, [facility] [address] [id number] [address] [place] [address], [place] [address] May, [facility] [address] [id number] [address] [place] [address], [place] [address] May, [facility] [address] [id number] [address] [place] [address], [place] [address] May, [facility] [address] [id number] [address] [place] [address], [place] [address] May, [facility] [address] [id number] [address] [place] [address], [place] [address] May, [facility] [address] [id number] [address] [place] [address], [place] [address] May, [facility] [address] [id number] [address] [place] [address], [place] [address] May, [facility] [address] [id number] [address] [place] [address], [place] [address] May, [facility] [address] [id number] [address] [place] [address], [place] [address] Apr, [facility] [address] [id number] [address] [place] [address], [place] [address] Apr, [facility] [address] [id number] [address] [place] [address], [place] [address] Apr, [facility] [address] [id number] [address] [place] [address], [place] [address] Apr, [facility] [address] [id number] [address] [place] [address], [place] [address] Apr, [facility] [address] [id number] [address] [place] [address], [place] [address] Apr, [facility] [address] [id number] [address] [place] [address], [place] [address] Apr, [facility] [address] [id number] [address] [place] [address], [place] [address] Apr, [facility] [address] [id number] [address] [place] [address], [place] [address] Apr, [facility] [address] [id number] [address] [place] [address], [place] [address] Apr, [facility] [address] [id number] [address] [place] [address], [place] [address] Apr, [facility] [address] [id number] [address] [place] [address], [place] [address] Apr, [facility] [address] [id number] [address] [place] [address], [place] [address] Apr, [facility] [address] [id number] [address] [place] [address], [place] [id number] Apr, [facility] [address] [id number] [address] [place] [address], [place] [address] Apr, [facility] [address] [id number] [address] [place] [address], [place] [id number] Apr, [facility] [address] [id number] [address] [place] [address], [place] [address] Apr, [facility] [address] [id number] [address] [place] [address], [place] [address] Jan, [facility] [address] [id number] [address] [place] [address], [place] [id number] Jan, [facility] [address] [id number] [address] [place] [id number] Jan, [facility] [address] [id number] [address] [place] [address], [place] [id number] 07 Jan, 2013 [facility] [address] [id number] [address] [place] [address], [place] [address] Jan, [facility] [address] [id number] [address] [place] [address], [place] [id number] Jan, [facility] [address] [id number] [address] [place] [address], [place] [address] Jan, [facility] [address] [id number] [address] [place] [address], [place] [id number] Dec, [facility] [address] [id number] [address] [place] [address], [place] [id number] Dec, [facility] [address] [id number] [address] [place] [address], [place] [address] Dec, [facility] [address] [id number] [address] [place] [address], [place] [address] Nov, [facility] [address] [id number] [address] [place] [address], [place] [address] Nov, [facility] [address] [id number] [address] [place] [address], [place] [id number] 05 Nov, 2012 [facility] [address] [id number] [address] [place] [address], [place] [id number] Nov, [facility] [address] [id number] [address] [place] [address], [place] [id number] Oct, [facility] [address] [id number] [address] [place] [address], [place] [id number] Oct, [facility] [address] [id number] [address] [place] [address], [place] [id number] Oct, [facility] [address] [id number] [address] [place] [address], [place] [address] Oct, [facility] [address] [id number] [address] [place] [address], [place] [address] Oct, [facility] [address] [id number] [address] [place] [address], [place] [address] Sep, [facility] [address] [id number] [address] [place] [address], [place] [address] Sep, [facility] [address] [id number] [address] [place] [address], [place] [address] Sep, [facility] [address] [id number] [address] [place] [address], [place] [id number] Sep, [facility] [address] [id number] [address] [place] [address], [place] [address] Sep, [facility] [address] [id number] [address] [place] [address], [place] [id number] Sep, [facility] [address] [id number] [address] [place] [address], [place] [address] Sep, [facility] [address] [id number] [address] [place] [address], [place] [id number] Aug, [facility] [address] [id number] [address] [place] [address], [place] [id number] Aug, [facility] [address] [id number] [address] [place] [address], [place] [id number] July, [facility] [address] [id number] [address] [place] [address], [place] [address] Jun, [facility] [address] [id number] [address] [place] [address], [place] [address] Jun, [facility] [address] [id number] [address] [place] [address], [place] [address] Jun, [facility] [address] [id number] [address] [place] [address], [place] [address] Apr, [facility] [address] [id number] [address] [place] [address], [place] [address] Apr, [facility] [address] [id number] [address] [place] [address], [place] [address] 12 Apr, 2012 [facility] [address] [id number] [address] [place] [address], [place] [address] Mar, [facility] [address] [id number] [address] [place] [address], [place] [id number] Mar, [facility] [facility] [address] [id number] [address] [place] [address], [place] [id number] Mar, [facility] [address] [id number] [address] [place] [address], [place] [id number] Mar, [facility] [address] [id number] [address] [place] [address], [place] [id number] Mar, [facility] [address] [id number] [address] [place] [address], [place] [id number] 14 Feb, 2012 [facility] [address] [id number] [address] [place] [address], [place] [id number] 14 Feb, 2012 [facility] [address] [id number] [address] [place] [address], [place] [id number] 13 Jan, 2012 [facility] [address] [id number] [address] [place] [address], [place] [id number] Jan, [facility] [address] [id number] [address] [place] [address], [place] [id number] 13 Jan, 2012 [facility] [address] [id number] [address] [place] [address], [place] [id number] 13 Jan, 2012 [facility] [address] [id number] [address] [place] [address], [place] [id number] Jan, [facility] [address] [id number] [address] [place] [address], [place] [id number] 07 Jan, 2012 [facility] [address] [id number] [address] [place] [address], [place] [id number] 06 Jan, 2012 [facility] [address] [id number] [address] [place] [address], [place] [id number] Dec, [facility] [address] [id number] [address] [place] [address], [place] [id number] Dec, [facility] [address] [id number] [address] [place] [address], [place] [id number] Dec, [facility] [address] [id number] [address] [place] [address], [place] [id number] Dec, [facility] [address] [id number] [address] [place] [address], [place] [id number] Dec, [facility] [address] [id number] [address] [place] [address], [place] [id number] Dec, [facility] [address] [id number] [address] [place] [address], [place] [id number] Dec, [facility] [address] [id number] [address] [place] [address], [place] [id number] Dec, [facility] [address] [id number] [address] [place] [address], [place] [id number] Dec, [facility] [address] [id number] [address] [place] [address], [place] [id number] Dec, [facility] [address] [id number] [address] [place] [id number] Oct, [facility] [address] [id number] [address] [place] [address], [place] [id number] Oct, [facility] [address] [id number] [address] [place] [id number] Aug, [facility] [address] [id number] [address] [place] [address], [place] [id number] Aug, [facility] [address] [id number] [address] [place] [id number] July, [facility] [address] [id number] [address] [place] [address], [place] [id number] Jun, [facility] [address] [id number] [address] [place] [address], [place] [id number] Jun, [facility] [address] [id number] [address] [place] [address], [place] [id number] May, [facility] [address] [id number] [address] [place] [address], [place] [id number] 22 Apr, 2011 [facility] [address] [id number] [address] [place] [address], [place] [id number] Apr, [facility] [address] [id number] [address] [place] [address], [place] [id number] Mar, [facility] [address] [id number] [address] [place] [address], [place] [id number] Mar, [facility] [address] [id number] [address] [place] [address], [place] [id number] Feb, [facility] [address] [id number] [address] [place] [address], [place] [id number] 15 Feb, 2011 [facility] [address] [id number] [address] [place] [address], [place] [id number] Feb, [facility] [address] [id number] [address] [place] [address], [place] [id number] Feb, [facility] [address] [id number] [address] [place] [address], [place] [id number] Jan, [facility] [address] [id number] [address] [place] [address], [place] [id number] 17 Dec, 2010 [facility] [address] [id number] [address] [place] [address], [place] [id number] 08 Feb, 2010 [facility] [address] [id number] [address] [place] [address], [place] [id number] Feb, [facility] [address] [id number] [address] [place] [address], [place] [id number] Feb, [facility] [address] [id number] [address] [place] [address], [place] [id number] Feb, [facility] [address] [id number] [address] [place] [id number] Dec, [facility] [address] [id number] [address] [place] [id number] Dec, [facility] [address] [id number] [address] [place] [id number] Oct, [facility] [address] [id number] [address] [place] [id number] Jun, [facility] [address] [id number] [address] [place] [id number] Feb, [facility] [address] [id number] [address] [place] [id number] Feb, [facility] [address] [id number] [address] [place] [id number] Feb, [facility] [address] [id number] [address] [place] [id number] Dec, IMMUNIZATIONS No Known Immunizations SOCIAL HISTORY Never Assessed REASON FOR VISIT PLAN OF CARE VITAL SIGNS MEDICATIONS Unknown Medications RESULTS No Results PROCEDURES Procedure Date Ordered Result Body Site PROTHROMBIN TIME Mar 14, 2014 INSTRUCTIONS MEDICATIONS ADMINISTERED No Known Medications MEDICAL (GENERAL) HISTORY Type Description Date Medical History obesity Medical History Hematologic disorder factor clotting pro [place] Medical History DVT's Medical History Torn Rotator Cuff, repaired 09/23/17 Surgical History Lap Band 10/2012 Surgical History section 1985, 1987 Surgical History cholecystectomy Surgical History Leopold Filter 06/2009 Surgical History Left leg exploratory surgery r/t clot Surgical History left shoulder surgery 09/14/17 Surgical History lap band removed 12/2017 Surgical History gastic sleeve 01/2018 Surgical History Back surgery 2019 Surgical History Partial Thyroidectomy - left side 2019 Hospitalization History Ruptured Ovarian Cyst with abd bleed ing 11/2009 Hospitalization History Broken Back 06/2018
--- OUTSIDE RECORDS SUMMARY | 2019-10-19 12:25 | XMS REPORT ---
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 Active 918249678 Problem Pelvic pain R10.2 Active 92940518 Problem Peripheral edema R60.9 Active 271 905142 Problem Moderate episode of recurrent major depressive disorder F33.1 Active 801467984 Problem Presence of IVC filter Z95.828 Active 323666060 Problem Vitamin D deficiency E55.9 Active 95854502 Problem Generalized anxiety disorder F41.1 A ctive 924933434 Problem Excessive daytime sleepiness G47.19 A ctive 121318999511 Problem Gastroesophageal reflux disease, esophagitis pre sence not specified K21.9 Active 288907306 Problem Thyroid nodule E04.1 Active 30866 5005 Problem Morbid obesity E66.01 Active 06967 6002 ALLERGIES No Information ENCOUNTERS Encounter Location Date Diagnosis [facility] [address] [facility] [id number] [address] [place] [phone] July, [facility] [address] [facility] [id number] [address] [place] [phone] 28 Jun, 2019 [facility] [address] [facility] [id number] [address] [place] [phone] 15 Jun, 2019 Back pain with history of sp inal surgery M54.9 [place] [address] [id number] [address] [place] [phone] 12 Apr, 2019 Back pain with history of sp inal surgery M54.9 [facility] [address] [id number] [address] [place] [id number] 11 Apr, 2019 [facility] [address] [id number] [address] [place] [phone] 10 Apr, 2019 Gastroenteritis K52.9 ; Back pain with history of spinal surgery M54.9 ; Dermatofibroma of lower leg, unspecified laterality D23.70 and Morbid obesity E66.01 [facility] [address] [id number] [address] [place] [phone] Mar, [facility] [address] [facility] [id number] [address] [place] [phone] Jan, [place] [address] [facility] [id number] [address] [place] [phone] Jan, [facility] [address] [id number] [address] [place] [phone] Dec, Encounter for weight managem ent Z76.89 [place] [address] [facility] [id number] [address] [place] [phone] Dec, Encounter for weight managem ent Z76.89 and Screening mammogram, encounter for Z12.31 [place] [address] [facility] [id number] [address] [place] [phone] Nov, Encounter for weight managem ent Z76.89 [place] [address] [id number] [address] [place] [phone] Nov, Thyroid nodule E04.1 [place] [address] [facility] [id number] [address] [place] [phone] Nov, Thyroid nodule E04.1 [place] [address] [facility] [id number] [address] [place] [phone] Nov, Thyroid nodule E04.1 [facility] [address] [facility] [id number] [address] [place] [phone] Oct, Syncope, unspecified syncope type R55 and Encounter for weight management Z76.89 [facility] [address] [facility] [id number] [address] [place] [phone] Oct, Morbid obesity E66.01 [facility] [address] [facility] [id number] [address] [place] [phone] Oct, Hypertriglyceridemia E78.1 [facility] [address] [facility] [id number] [address] [place] [phone] Oct, [facility] [address] [place] [id number] [place] [phone] Oct, Hypertriglyceridemia E78.1 [facility] [address] [place] [id number] [address] [place] [phone] Sep, Hypertriglyceridemia E78.1 a nd Vitamin D deficiency E55.9 [facility] [address] [place] [id number] [address] [place] [phone] Sep, [facility] [address] [place] [id number] [place] [phone] Sep, Morbid obesity E66.01 ; Mode rate episode of recurrent major depressive disorder F33.1 ; Hypertriglyceridemia E78.1 and Vitamin D deficiency E55.9 [place] [address] [facility] [id number] [address] [place] [id number] Aug, [facility] [address] [place] [id number] [address] [place] [phone] July, [facility] [address] [facility] [id number] [address] [place] [phone] July, [facility] [address] [place] [id number] [address] [place] [phone] Jun, [facility] [address] [facility] [id number] [address] [place] [phone] Jun, [facility] [address] [facility] [id number] [address] [place] [id number] Jun, Closed compression fracture of L3 lumbar vertebra with routine healing, subsequent encounter S32.030D and Drug-induced constipation K59.03 [facility] [address] [id number] [address] [place] [phone] Jun, [facility] [address] [facility] [id number] [place] [phone] Jun, [facility] [address] [facility] [id number] [address] [place] [phone] Apr, [facility] [address] [facility] [id number] [place] [phone] Apr, Morbid obesity E66.01 [facility] [address] [place] [id number] [place] [phone] Apr, Morbid obesity E66.01 ; Hype rtriglyceridemia E78.1 ; Gastroesophageal reflux disease, esophagitis presence not specified K21.9 and Joint pain M25.50 [facility] [address] [facility] [id number] [address] [place] [phone] Feb, [facility] [address] [place] [id number] [address] [place] [phone] Feb, [facility] [address] [facility] [id number] [address] [place] [phone] Jan, Acute bacterial conjunctivit is H10.30 [facility] [address] [facility] [id number] [address] [place] [phone] Dec, [facility] [address] [facility] [id number] [address] [place] [phone] Dec, [facility] [address] [facility] [id number] [address] [place] [phone] Nov, [facility] [address] [facility] [id number] [address] [place] [phone] Nov, Obstructive sleep apnea G47. 33 ; Morbid obesity E66.01 and Gastroesophageal reflux disease, esophagitis presence not specified K21.9 [facility] [address] [id number] [address] [place] [id number] 06 Nov, 2017 Encounter for examination of eyes and vision without abnormal findings Z01.00 [facility] [address] [facility] [id number] [address] [place] [id number] Oct, Thyroid nodule E04.1 and Scr eening for breast cancer Z12.31 [facility] [address] [facility] [id number] [address] [place] [phone] Oct, History of DVT (deep vein th rombosis) Z86.718 ; Thyroid nodule E04.1 and Gastroesophageal reflux disease, esophagitis presence not specified K21.9 [facility] [address] [facility] [id number] [address] [place] [phone] Oct, [place] [address] [place] [id number] [address] [place] [phone] Sep, [facility] [address] [facility] [id number] [address] [place] [phone] Aug, [place] [address] [place] [id number] [place] [phone] Aug, [place] [address] [place] [id number] [address] [place] [phone] Aug, Acute pain of left shoulder M25.512 and Thyroid nodule E04.1 [place] [address] [place] [id number] [address] [place] [phone] July, Superior glenoid labrum lesi on of left shoulder, subsequent encounter S43.432D [place] [address] [place] [id number] [address] [place] [id number] Jun, History of DVT (deep vein th rombosis) Z86.718 [facility] [address] [facility] [id number] [address] [place] [phone] Jun, History of DVT (deep vein th rombosis) Z86.718 [place] [address] [id number] [address] [place] [phone] Jun, Impingement syndrome, should er, left M75.42 [place] [address] [id number] [address] [place] [phone] May, Subacromial bursitis of left shoulder joint M75.52 [place] [address] [facility] [id number] [address] [place] [phone] May, [place] [address] [facility] [id number] [address] [place] [phone] May, Hypertriglyceridemia E78.1 ; 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 and Excessive daytime sleepiness G47.19 [place] [address] [facility] [id number] [address] [place] [id number] May, History of DVT (deep vein th rombosis) Z86.718 ; Generalized anxiety disorder F41.1 ; Hypertriglyceridemia E78.1 ; [facility] (current) use of anticoagulants Z79.01 ; Subacromial bursitis of left shoulder joint M75.52 and Excessive daytime sleepiness G47.19 [place] [address] [facility] [id number] [address] [place] [phone] May, [place] [address] [facility] [id number] [address] [place] [phone] May, intermodal dispatcher (current) use of a nticoagulants Z79.01 [place] [address] [id number] [address] [place] [phone] Apr, intermodal dispatcher (current) use of a nticoagulants Z79.01 [place] [address] [facility] [id number] [address] [place] [phone] Apr, [facility] (current) use of a nticoagulants Z79.01 [place] [address] [facility] [id number] [address] [place] [phone] Apr, intermodal dispatcher (current) use of a nticoagulants Z79.01 [facility] [address] [id number] [address] [place] [phone] Apr, [facility] [address] [id number] [address] [place] [phone] Apr, [facility] (current) use of a nticoagulants Z79.01 [facility] [address] [id number] [address] [place] [phone] Apr, [facility] (current) use of a nticoagulants Z79.01 [facility] [address] [id number] [address] [place] [phone] Apr, [facility] (current) use of a nticoagulants Z79.01 [facility] [address] [id number] [address] [place] [phone] Apr, intermodal dispatcher (current) use of a nticoagulants Z79.01 [facility] [address] [id number] [address] [place] [phone] Apr, [facility] (current) use of a nticoagulants Z79.01 [facility] [address] [id number] [address] [place] [phone] Apr, [facility] (current) use of a nticoagulants Z79.01 [facility] [address] [id number] [address] [place] [phone] Mar, intermodal dispatcher (current) use of a nticoagulants Z79.01 [facility] [address] [id number] [address] [place] [phone] Mar, [facility] [address] [id number] [address] [place] [phone] Mar, [facility] (current) use of a nticoagulants Z79.01 [facility] [address] [id number] [address] [place] [id number] Jan, Dental examination Z01.20 [facility] [address] [id number] [address] [place] [id number] Jan, [facility] [address] [facility] [id number] [address] [place] [phone] Jan, [facility] (current) use of a nticoagulants Z79.01 [facility] [address] [facility] [id number] [address] [place] [phone] Jan, History of DVT (deep vein th rombosis) Z86.718 [facility] [address] [facility] [id number] [address] [place] [phone] Jan, Generalized anxiety disorder F41.1 and Peripheral edema R60.9 [place] [address] [facility] [id number] [address] [place] [phone] Nov, History of DVT (deep vein th rombosis) Z86.718 [facility] [address] [facility] [id number] [address] [place] [phone] Nov, intermodal dispatcher (current) use of a nticoagulants Z79.01 [facility] [address] [facility] [id number] [address] [place] [phone] Nov, Acute non-recurrent maxillar y sinusitis J01.00 [facility] [address] [facility] [id number] [address] [place] [phone] Oct, [facility] (current) use of a nticoagulants Z79.01 [facility] [address] [facility] [id number] [address] [place] [phone] Oct, Personal history of venous t hrombosis and embolism Z86.718 [facility] [address] [facility] [id number] [address] [place] [phone] Sep, [facility] [address] [facility] [id number] [address] [place] [phone] Sep, Personal history of venous t hrombosis and embolism Z86.718 [facility] [address] [facility] [id number] [address] [place] [phone] Sep, intermodal dispatcher (current) use of a nticoagulants Z79.01 [place] [address] [facility] [id number] [address] [place] [phone] Sep, [facility] (current) use of a nticoagulants Z79.01 [place] [address] [facility] [id number] [address] [place] [phone] Sep, Generalized anxiety disorder F41.1 and History of DVT (deep vein thrombosis) Z86.718 [place] [address] [facility] [id number] [address] [place] [phone] Aug, History of DVT (deep vein th rombosis) Z86.718 ; Generalized anxiety disorder F41.1 ; [facility] (current) use of anticoagulants Z79.01 ; Pelvic pain R10.2 ; Hypertriglyceridemia E78.1 ; Excessive daytime sleepiness G47.19 ; Colon cancer screening Z12.11 ; Screening for breast cancer Z12.39 ; Peripheral edema R60.9 and Gastroesophageal reflux disease, esophagitis presence not specified K21.9 [place] [address] [place] [id number] [address] [place] [phone] Aug, [place] [address] [place] [id number] [address] [place] [phone] July, [place] [address] [place] [id number] [address] [place] [phone] July, History of DVT (deep vein th rombosis) Z86.718 [place] [address] [facility] [id number] [address] [place] [phone] Jun, Generalized anxiety disorder F41.1 [place] [address] [place] [id number] [address] [place] [phone] Jun, History of DVT (deep vein th rombosis) Z86.718 [place] [address] [place] [id number] [address] [place] [phone] Jun, History of DVT (deep vein th rombosis) Z86.718 [facility] [address] [id number] [address] [place] [id number] Jun, History of DVT (deep vein th rombosis) Z86.718 [facility] [address] [facility] [id number] [address] [place] [phone] Jun, History of DVT (deep vein th rombosis) Z86.718 [facility] [address] [id number] [address] [place] [phone] May, History of DVT (deep vein th rombosis) Z86.718 [place] [address] [facility] [id number] [address] [place] [phone] May, intermodal dispatcher (current) use of a nticoagulants Z79.01 [place] [address] [facility] [id number] [address] [place] [id number] May, [facility] (current) use of a nticoagulants Z79.01 [facility] [address] [facility] [id number] [address] [place] [phone] May, History of DVT (deep vein th rombosis) Z86.718 [facility] [address] [facility] [id number] [address] [place] [phone] Apr, Bacterial conjunctivitis of left eye H10.9 and H/O motion sickness Z87.898 [facility] [address] [facility] [id number] [address] [place] [id number] Apr, History of DVT (deep vein th rombosis) Z86.718 [facility] [address] [facility] [id number] [address] [place] [phone] Apr, History of DVT (deep vein th rombosis) Z86.718 [facility] [address] [facility] [id number] [address] [place] [phone] Apr, History of DVT (deep vein th rombosis) Z86.718 [facility] [address] [id number] [address] [place] [phone] 14 Apr, 2016 [facility] (current) use of a nticoagulants Z79.01 [facility] [address] [id number] [address] [place] [phone] Mar, [facility] [address] [id number] [address] [place] [phone] Mar, intermodal dispatcher (current) use of a nticoagulants Z79.01 [place] [address] [id number] [address] [place] [phone] Mar, Hypertriglyceridemia E78.1 a nd [facility] (current) use of anticoagulants Z79.01 [place] [address] [id number] [address] [place] [phone] Feb, intermodal dispatcher (current) use of a nticoagulants Z79.01 [place] [address] [id number] [address] [place] [phone] Feb, [facility] (current) use of a nticoagulants Z79.01 [place] [address] [id number] [address] [place] [phone] Feb, intermodal dispatcher (current) use of a nticoagulants Z79.01 [place] [address] [id number] [address] [place] [phone] Dec, [facility] [address] [id number] [address] [place] [phone] Nov, [place] [address] [id number] [address] [place] [phone] 13 Nov, 2015 History of DVT (deep vein th rombosis) Z86.718 ; Tremulousness R25.1 ; Generalized anxiety disorder F41.1 ; Peripheral edema R60.9 and Hypertriglyceridemia E78.1 [place] [address] [id number] [address] [place] [phone] Oct, History of DVT (deep vein th rombosis) Z86.718 [facility] [address] [id number] [address] [place] [phone] Oct, [facility] [address] [id number] [address] [place] [phone] Sep, History of DVT (deep vein th rombosis) Z86.718 [facility] [address] [id number] [address] [place] [phone] Sep, intermodal dispatcher (current) use of a nticoagulants Z79.01 [facility] [address] [id number] [address] [place] [phone] July, [place] [address] [id number] [address] [place] [phone] July, [facility] (current) use of a nticoagulants Z79.01 [place] [address] [id number] [address] [place] [phone] July, intermodal dispatcher (current) use of a nticoagulants Z79.01 [place] [address] [id number] [address] [place] [phone] Jun, [facility] (current) use of a nticoagulants Z79.01 [facility] [address] [id number] [address] [place] [phone] Jun, Coccyx pain M53.3 ; Encounte r for therapeutic drug level monitoring Z51.81 and intermodal dispatcher current use 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.01 [facility] [address] [id number] [address] [place] [phone] May, Abnormal mammogram R92.8 [facility] [address] [facility] [id number] [address] [place] [phone] May, [facility] [address] [facility] [id number] [address] [place] [phone] 06 Mar, 2016 Acute vaginitis N76.0 and En counter for other screening for malignant neoplasm of breast Z12.39 [facility] [address] [id number] [address] [place] [id number] Apr, [facility] [address] [id number] [address] [place] [id number] Apr, [facility] [address] [facility] [id number] [address] [place] [phone] Apr, Peripheral edema R60.9 [facility] [address] [id number] [address] [place] [phone] Apr, [facility] (current) use of a nticoagulants Z79.01 [place] [address] [address] [facility] [id number] [address] [place] [phone] Apr, Peripheral edema R60.9 and L jose [facility] (current) 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 Z79.01 [place] [id number] [id number] [address] [place] [id number] Apr, intermodal dispatcher (current) use of a nticoagulants Z79.01 [place] [address] [address] [facility] [id number] [address] [place] [phone] Apr, [facility] [address] [facility] [id number] [address] [place] [phone] Apr, [facility] (current) use of a nticoagulants Z79.01 [place] [address] [id number] [address] [place] [phone] Apr, Peripheral edema R60.9 [facility] [address] [facility] [id number] [address] [place] [phone] Mar, [facility] (current) use of a nticoagulants Z79.01 [facility] [address] [facility] [id number] [address] [place] [phone] Mar, [facility] (current) use of a nticoagulants Z79.01 and Hypertriglyceridemia E78.1 [facility] [address] [id number] [address] [place] [id number] Mar, [facility] (current) use of a nticoagulants Z79.01 [facility] [address] [id number] [address] [place] [phone] Mar, intermodal dispatcher (current) use of a nticoagulants Z79.01 [place] [address] [id number] [address] [place] [phone] Mar, [place] [address] [id number] [address] [place] [phone] Mar, intermodal dispatcher (current) use of a nticoagulants Z79.01 ; Hypertriglyceridemia E78.1 ; Personal history of venous thrombosis and embolism Z86.718 and Lump R22.9 [place] [address] [id number] [address] [place] [phone] Mar, Personal history of venous t hrombosis and embolism Z86.718 [place] [address] [id number] [address] [place] [phone] Mar, Personal history of venous t hrombosis and embolism Z86.718 [place] [address] [id number] [address] [place] [phone] Mar, [place] [address] [id number] [address] [place] [phone] Dec, Personal history of venous t hrombosis and embolism Z86.718 [place] [address] [id number] [address] [place] [phone] Dec, Personal history of venous t hrombosis and embolism V12.51 [place] [address] [id number] [address] [place] [phone] Nov, Personal history of venous t hrombosis and embolism V12.51 [place] [address] [id number] [address] [place] [phone] Nov, Personal history of venous t hrombosis and embolism V12.51 [facility] [address] [id number] [address] [place] [id number] Nov, Personal history of venous t hrombosis and embolism V12.51 [facility] [address] [id number] [address] [place] [phone] Nov, Personal history of venous t hrombosis and embolism V12.51 [facility] [address] [id number] [address] [place] [phone] Nov, [facility] [address] [id number] [address] [place] [phone] Oct, Dysuria 788.1 [facility] [address] [id number] [address] [place] [phone] Oct, Personal history of venous t hrombosis and embolism V12.51 [facility] [address] [id number] [address] [place] [phone] Oct, [facility] [address] [id number] [address] [place] [id number] Oct, Personal history of venous t hrombosis and embolism V12.51 [facility] [address] [id number] [address] [place] [phone] Sep, Personal history of venous t hrombosis and embolism V12.51 [facility] [address] [id number] [address] [place] [id number] Sep, Personal history of venous t hrombosis and embolism V12.51 [facility] [address] [id number] [address] [place] [phone] Aug, Personal history of venous t hrombosis and embolism V12.51 [facility] [address] [id number] [address] [place] [phone] Aug, Personal history of venous t hrombosis and embolism V12.51 [facility] [address] [id number] [address] [place] [phone] 15 Aug, 2014 Personal history of venous t hrombosis and embolism V12.51 [facility] [address] [id number] [address] [place] [phone] July, Generalized anxiety disorder 300.02 ; Abdominal pain, left lower quadrant 789.04 and Personal history of venous thrombosis and embolism V12.51 [facility] [address] [id number] [address] [place] [id number] 14 Jun, 2014 [facility] [address] [id number] [address] [place] [phone] Jun, [facility] [address] [id number] [address] [place] [phone] May, [facility] [address] [id number] [address] [place] [phone] May, [facility] [address] [id number] [address] [place] [phone] May, [facility] [address] [id number] [address] [place] [phone] May, [facility] [address] [id number] [address] [place] [phone] May, [facility] [address] [id number] [address] [place] [phone] May, [facility] [address] [id number] [address] [place] [phone] May, [facility] [address] [id number] [address] [place] [phone] May, [facility] [address] [id number] [address] [place] [phone] Apr, [facility] [address] [id number] [address] [place] [phone] Apr, [facility] [address] [id number] [address] [place] [phone] Apr, [facility] [address] [id number] [address] [place] [address], [place] [id number] Apr, [facility] [address] [id number] [address] [place] [address], [place] [address] Apr, [facility] [address] [id number] [address] [place] [address], [place] [id number] Mar, [facility] [address] [id number] [address] [place] [address], [place] [id number] Mar, [facility] [address] [id number] [address] [place] [address], [place] [address] Mar, [facility] [address] [id number] [address] [place] [address], [place] [address] Mar, [facility] [address] [id number] [address] [place] [address], [place] [id number] Mar, [facility] [address] [id number] [address] [place] [address], [place] [id number] Mar, [facility] [address] [id number] [address] [place] [address], [place] [id number] Feb, [facility] [address] [id number] [address] [place] [address], [place] [id number] Feb, [facility] [address] [id number] [address] [place] [address], [place] [id number] Feb, [facility] [address] [id number] [address] [place] [address], [place] [id number] Feb, [facility] [address] [id number] [address] [place] [address], [place] [id number] Feb, [facility] [address] [id number] [address] [place] [address], [place] [id number] Feb, [facility] [address] [id number] [address] [place] [address], [place] [address] Feb, [facility] [address] [id number] [address] [place] [address], [place] [id number] Feb, [facility] [address] [id number] [address] [place] [address], [place] [address] Feb, [facility] [address] [id number] [address] [place] [address], [place] [address] Feb, [facility] [address] [id number] [address] [place] [address], [place] [id number] Jan, [facility] [address] [id number] [address] [place] [address], [place] [address] Jan, [facility] [address] [id number] [address] [place] [address], [place] [id number] Jan, [facility] [address] [id number] [address] [place] [address], [place] [address] Jan, [facility] [address] [id number] [address] [place] [address], [place] [address] Jan, [facility] [address] [id number] [address] [place] [address], [place] [address] Jan, [facility] [address] [id number] [address] [place] [address], [place] [address] Jan, [facility] [address] [id number] [address] [place] [address], [place] [address] Jan, [facility] [address] [id number] [address] [place] [address], [place] [address] Jan, [facility] [address] [id number] [address] [place] [address], [place] [address] Jan, [facility] [address] [id number] [address] [place] [address], [place] [address] Dec, [facility] [address] [id number] [address] [place] [address], [place] [address] Dec, [facility] [address] [id number] [address] [place] [address], [place] [address] Dec, [facility] [address] [id number] [address] [place] [address], [place] [address] Dec, [facility] [address] [id number] [address] [place] [address], [place] [address] Dec, [facility] [address] [id number] [address] [place] [address], [place] [address] Dec, [facility] [address] [id number] [address] [place] [address], [place] [address] Dec, [facility] [address] [id number] [address] [place] [address], [place] [address] Dec, [facility] [address] [id number] [address] [place] [address], [place] [address] Dec, [facility] [address] [id number] [address] [place] [address], [place] [address] Dec, [facility] [address] [id number] [address] [place] [address], [place] [address] Dec, [facility] [address] [id number] [address] [place] [address], [place] [address] Dec, [facility] [address] [id number] [address] [place] [phone] Dec, [facility] [address] [id number] [address] [place] [address], [place] [id number] Dec, [facility] [address] [id number] [address] [place] [phone] Dec, [facility] [address] [id number] [address] [place] [address], [place] [address] Nov, [facility] [address] [id number] [address] [place] [address], [place] [address] Nov, [facility] [address] [id number] [address] [place] [address], [place] [id number] Nov, [facility] [address] [id number] [address] [place] [address], [place] [address] 26 Sep, 2013 [facility] [address] [id number] [facility] [place] [id number] 24 Sep, 2013 [facility] [address] [id number] [facility] [place] [address] 24 Sep, 2013 [facility] [address] [id number] [address] [place] [address], [place] [address] 23 Sep, 2013 [facility] [address] [id number] [address] [place] [address], [place] [address] 23 Sep, 2013 [facility] [address] [id number] [address] [place] [address], [place] [address] 18 Sep, 2013 [facility] [address] [id number] [address] [place] [address], [place] [address] 18 Sep, 2013 [facility] [address] [id number] [address] [place] [address], [place] [address] 17 Sep, 2013 [facility] [address] [id number] [address] [place] [address], [place] [address] 17 Sep, 2013 [facility] [address] [id number] [address] [place] [address], [place] [address] 11 Nov, 2013 [facility] [address] [id number] [address] [place] [address], [place] [address] 11 Nov, 2013 [facility] [address] [id number] [address] [place] [address], [place] [address] 10 Nov, 2013 [facility] [address] [id number] [address] [place] [address], [place] [address] 10 Sep, 2013 [facility] [address] [id number] [address] [place] [address], [place] [address] 08 Sep, 2013 [facility] [address] [id number] [address] [place] [address], [place] [address] 08 Nov, 2013 [facility] [address] [id number] [address] [place] [address], [place] [address] 22 Sep2013 [facility] [address] [id number] [facility] [place] [address] Sep, [facility] [address] [id number] [facility] [place] [address] Sep, [facility] [address] [id number] [facility] [place] [address] Sep, [facility] [address] [id number] [facility] [place] [address] Sep, [facility] [address] [id number] [facility] [place] [address] Sep, [facility] [address] [id number] [address] [place] [address], [place] [address] Aug, [facility] [address] [id number] [address] [place] [address], [place] [address] Aug, [facility] [address] [id number] [address] [place] [address], [place] [address] Aug, [facility] [address] [id number] [address] [place] [address], [place] [address] Aug, [facility] [address] [id number] [address] [place] [address], [place] [address] Aug, [facility] [address] [id number] [address] [place] [address], [place] [address] Aug, [facility] [address] [id number] [address] [place] [address], [place] [address] Aug, [facility] [address] [id number] [address] [place] [address], [place] [address] Aug, [facility] [address] [id number] [address] [place] [address], [place] [address] Aug, [facility] [address] [id number] [address] [place] [address], [place] [address] Aug, [facility] [address] [id number] [address] [place] [address], [place] [address] Aug, [facility] [address] [id number] [address] [place] [address], [place] [address] July, [facility] [address] [id number] [address] [place] [address], [place] [address] July, [facility] [address] [id number] [address] [place] [address], [place] [address] Jun, [facility] [address] [id number] [address] [place] [address], [place] [address] Jun, [facility] [address] [id number] [address] [place] [address], [place] [address] Jun, [facility] [address] [id number] [address] [place] [address], [place] [address] Jun, [facility] [address] [id number] [address] [place] [address], [place] [address] Jun, [facility] [address] [id number] [address] [place] [address], [place] [address] Jun, [facility] [address] [id number] [address] [place] [address], [place] [address] Jun, [facility] [address] [id number] [address] [place] [address], [place] [address] Jun, [facility] [address] [id number] [address] [place] [address], [place] [address] Jun, [facility] [address] [id number] [address] [place] [address], [place] [address] Jun, [facility] [address] [id number] [address] [place] [address], [place] [address] Jun, [facility] [address] [id number] [address] [place] [address], [place] [address] Jun, [facility] [address] [id number] [address] [place] [address], [place] [address] May, [facility] [address] [id number] [facility] [place] [address] May, [facility] [address] [id number] [facility] [place] [address] May, [facility] [address] [id number] [facility] [place] [address] May, [facility] [address] [id number] [address] [place] [address], [place] [address] May, [facility] [address] [id number] [address] [place] [address], [place] [address] May, [facility] [address] [id number] [address] [place] [address], [place] [id number] May, [facility] [address] [id number] [address] [place] [address], [place] [id number] May, [facility] [address] [id number] [address] [place] [address], [place] [address] May, [facility] [address] [id number] [address] [place] [address], [place] [id number] May, [facility] [address] [id number] [address] [place] [address], [place] [address] May, [facility] [address] [id number] [address] [place] [address], [place] [address] May, [facility] [address] [id number] [address] [place] [address], [place] [address] Apr, [facility] [address] [id number] [address] [place] [address], [place] [address] Apr, [facility] [address] [id number] [address] [place] [address], [place] [address] Apr, [facility] [address] [id number] [address] [place] [address], [place] [address] Apr, [facility] [address] [id number] [address] [place] [address], [place] [id number] Apr, [facility] [address] [id number] [address] [place] [address], [place] [address] Apr, [facility] [address] [id number] [address] [place] [address], [place] [address] Apr, [facility] [address] [id number] [address] [place] [address], [place] [address] Apr, [facility] [address] [id number] [address] [place] [address], [place] [address] Apr, [facility] [address] [id number] [address] [place] [address], [place] [address] Apr, [facility] [address] [id number] [address] [place] [address], [place] [address] Apr, [facility] [address] [id number] [address] [place] [address], [place] [address] Apr, [facility] [address] [id number] [address] [place] [address], [place] [address] Apr, [facility] [address] [id number] [address] [place] [address], [place] [address] Apr, [facility] [address] [id number] [address] [place] [address], [place] [address] Apr, [facility] [address] [id number] [address] [place] [address], [place] [address] Apr, [facility] [address] [id number] [address] [place] [address], [place] [address] Apr, [facility] [address] [id number] [address] [place] [address], [place] [address] Jan, [facility] [address] [id number] [address] [place] [address], [place] [id number] Jan, [facility] [address] [id number] [address] [place] [id number] Jan, [facility] [address] [id number] [address] [place] [address], [place] [id number] 07 Jan, 2013 [facility] [address] [id number] [address] [place] [address], [place] [address] Jan, [facility] [address] [id number] [address] [place] [address], [place] [address] Jan, [facility] [address] [id number] [address] [place] [address], [place] [address] Jan, [facility] [address] [id number] [address] [place] [address], [place] [address] Dec, [facility] [address] [id number] [address] [place] [address], [place] [id number] Dec, [facility] [address] [id number] [address] [place] [address], [place] [address] Dec, [facility] [address] [id number] [address] [place] [address], [place] [address] Nov, [facility] [address] [id number] [address] [place] [address], [place] [address] Nov, [facility] [address] [id number] [address] [place] [address], [place] [address] 05 Nov, 2012 [facility] [address] [id number] [address] [place] [address], [place] [address] Nov, [facility] [address] [id number] [address] [place] [address], [place] [address] Oct, [facility] [address] [id number] [address] [place] [address], [place] [address] Oct, [facility] [address] [id number] [address] [place] [address], [place] [address] Oct, [facility] [address] [id number] [address] [place] [address], [place] [address] Oct, [facility] [address] [id number] [address] [place] [address], [place] [id number] Oct, [facility] [address] [id number] [address] [place] [address], [place] [id number] Sep, [facility] [address] [id number] [address] [place] [address], [place] [id number] Sep, [facility] [address] [id number] [address] [place] [address], [place] [id number] Sep, [facility] [address] [id number] [address] [place] [address], [place] [id number] Sep, [facility] [address] [id number] [address] [place] [address], [place] [address] Sep, [facility] [address] [id number] [address] [place] [address], [place] [id number] Sep, [facility] [address] [id number] [address] [place] [address], [place] [id number] Sep, [facility] [address] [id number] [address] [place] [address], [place] [id number] Aug, [facility] [address] [id number] [address] [place] [address], [place] [id number] Aug, [facility] [address] [id number] [address] [place] [address], [place] [address] July, [facility] [address] [id number] [address] [place] [address], [place] [id number] Jun, [facility] [address] [id number] [address] [place] [address], [place] [id number] Jun, [facility] [address] [id number] [address] [place] [address], [place] [id number] Jun, [facility] [address] [id number] [address] [place] [address], [place] [id number] Apr, [facility] [address] [id number] [address] [place] [address], [place] [id number] Apr, [facility] [address] [id number] [address] [place] [address], [place] [id number] 12 Apr, 2012 [facility] [address] [id number] [address] [place] [address], [place] [id number] Mar, [facility] [address] [id number] [address] [place] [address], [place] [id number] Mar, [facility] [address] [id number] [address] [place] [address], [place] [id number] Mar, [facility] [address] [id number] [address] [place] [address], [place] [id number] Mar, [facility] [address] [id number] [address] [place] [address], [place] [id number] Mar, [facility] [address] [id number] [address] [place] [address], [place] [id number] 14 Feb, 2012 [facility] [address] [id number] [address] [place] [address], [place] [id number] 14 Feb, 2012 [facility] [address] [id number] [address] [place] [address], [place] [id number] 13 Jan, 2012 [facility] [address] [id number] [address] [place] [address], [place] [id number] Jan, [facility] [address] [id number] [address] [place] [address], [place] [id number] 13 Jan, 2012 [facility] [address] [id number] [address] [place] [address], [place] [id number] 13 Jan, 2012 [facility] [address] [id number] [address] [place] [address], [place] [id number] Jan, [facility] [address] [id number] [address] [place] [address], [place] [id number] 07 Jan, 2012 [facility] [address] [id number] [address] [place] [address], [place] [id number] 06 Jan, 2012 [facility] [address] [id number] [address] [place] [address], [place] [id number] Dec, [facility] [address] [id number] [address] [place] [address], [place] [id number] Dec, [facility] [address] [id number] [address] [place] [address], [place] [id number] Dec, [facility] [address] [id number] [address] [place] [address], [place] [id number] Dec, [facility] [address] [id number] [address] [place] [address], [place] [id number] Dec, [facility] [address] [id number] [address] [place] [address], [place] [address] Dec, [facility] [address] [id number] [address] [place] [address], [place] [id number] Dec, [facility] [address] [id number] [address] [place] [address], [place] [id number] Dec, [facility] [address] [id number] [address] [place] [address], [place] [id number] Dec, [facility] [address] [id number] [address] [place] [address], [place] [address] Dec, [facility] [address] [id number] [address] [place] [id number] Oct, [facility] [address] [id number] [address] [place] [address], [place] [id number] Oct, [facility] [address] [id number] [address] [place] [id number] Aug, [facility] [address] [id number] [address] [place] [address], [place] [address] Aug, [facility] [address] [id number] [address] [place] [id number] July, [facility] [address] [id number] [address] [place] [address], [place] [id number] Jun, [facility] [address] [id number] [address] [place] [address], [place] [id number] Jun, [facility] [address] [id number] [address] [place] [address], [place] [id number] May, [facility] [address] [id number] [address] [place] [address], [place] [id number] 22 Apr, 2011 [facility] [address] [id number] [address] [place] [address], [place] [id number] Apr, [facility] [address] [id number] [address] [place] [address], [place] [id number] Mar, [facility] [address] [id number] [address] [place] [address], [place] [id number] Mar, [facility] [address] [id number] [address] [place] [address], [place] [id number] Feb, [facility] [address] [id number] [address] [place] [address], [place] [id number] 15 Feb, 2011 [facility] [address] [id number] [address] [place] [address], [place] [id number] Feb, [facility] [address] [id number] [address] [place] [address], [place] [id number] Feb, [facility] [address] [id number] [address] [place] [address], [place] [id number] Jan, [facility] [address] [id number] [address] [place] [address], [place] [id number] 17 Dec, 2010 [facility] [address] [id number] [address] [place] [address], [place] [id number] 08 Feb, 2010 [facility] [address] [id number] [address] [place] [address], [place] [id number] Feb, [facility] [address] [id number] [address] [place] [address], [place] [address] Feb, [facility] [address] [id number] [address] [place] [address], [place] [id number] Feb, [facility] [address] [id number] [address] [place] [id number] Dec, [facility] [address] [id number] [address] [place] [id number] Dec, [facility] [address] [id number] [address] [place] [id number] Oct, [facility] [address] [id number] [address] [place] [id number] Jun, [facility] [address] [id number] [address] [place] [id number] Feb, [facility] [address] [id number] [address] [place] [id number] Feb, [facility] [address] [id number] [address] [place] [id number] Feb, [facility] [address] [id number] [address] [place] [id number] Dec, IMMUNIZATIONS No Known Immunizations SOCIAL HISTORY [...]
--- OUTSIDE RECORDS SUMMARY | 2019-10-19 12:26 | XMS REPORT ---
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 Active 220841034 Problem Hypertriglyceridemia E78.1 Active 580064299 Problem 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 Active 711851662 Problem Pelvic pain R10.2 Active 48769083 Problem Peripheral edema R60.9 Active 271 433053 Problem Moderate episode of recurrent major depressive disorder F33.1 Active 029270994 Problem Presence of IVC filter Z95.828 Active 868049872 Problem Vitamin D deficiency E55.9 Active 84426312 Problem Generalized anxiety disorder F41.1 A ctive 559534465 Problem Excessive daytime sleepiness G47.19 A ctive [id number] Problem Gastroesophageal reflux disease, esophagitis pre sence not specified K21.9 Active 079213159 Problem Thyroid nodule E04.1 Active 78842 5005 Problem Morbid obesity E66.01 Active 81354 6002 ALLERGIES No Information ENCOUNTERS Encounter Location Date Diagnosis [facility] [address] [facility] [id number] [address] [place] [phone] 12 Apr, 2019 Back pain with history of sp inal surgery M54.9 [facility] [address] [facility] [id number] [address] [place] [address] 11 Apr, 2019 [facility] [address] [facility] [id number] [address] [place] [address] 10 Apr, 2019 Gastroenteritis K52.9 ; Back pain with history of spinal surgery M54.9 ; Dermatofibroma of lower leg, unspecified laterality D23.70 and Morbid obesity E66.01 [place] [address] [facility] [id number] [address] [place] [address] Mar, [place] [address] [facility] [id number] [address] [place] [address] Jan, [place] [address] [facility] [id number] [address] [place] [address] Jan, [place] [address] [facility] [id number] [address] [place] [address] Dec, Encounter for weight managem ent Z76.89 [place] [address] [facility] [id number] [address] [place] [address] Dec, Encounter for weight managem ent Z76.89 and Screening mammogram, encounter for Z12.31 [place] [address] [facility] [id number] [address] [place] [address] Nov, Encounter for weight managem ent Z76.89 [place] [address] [facility] [id number] [address] [place] [address] Nov, Thyroid nodule E04.1 [place] [address] [facility] [id number] [address] [place] [address] Nov, Thyroid nodule E04.1 [place] [address] [facility] [id number] [address] [place] [address] Nov, Thyroid nodule E04.1 [place] [address] [facility] [id number] [address] [place] [address] Oct, Syncope, unspecified syncope type R55 and Encounter for weight management Z76.89 [place] [address] [id number] [address] [place] [address] Oct, Morbid obesity E66.01 [place] [address] [facility] [id number] [address] [place] [address] Oct, Hypertriglyceridemia E78.1 [facility] [address] [id number] [address] [place] [address] Oct, [facility] [address] [id number] [address] [place] [address] Oct, Hypertriglyceridemia E78.1 [facility] [address] [id number] [address] [place] [address] Sep, Hypertriglyceridemia E78.1 a nd Vitamin D deficiency E55.9 [facility] [address] [id number] [address] [place] [address] Sep, [facility] [address] [id number] [address] [place] [address] Sep, Morbid obesity E66.01 ; Mode rate episode of recurrent major depressive disorder F33.1 ; Hypertriglyceridemia E78.1 and Vitamin D deficiency E55.9 [facility] [address] [id number] [address] [place] [address] Aug, [facility] [address] [id number] [address] [place] [address] July, [facility] [address] [id number] [address] [place] [address] July, [facility] [address] [id number] [address] [place] [address] Jun, [facility] [address] [id number] [address] [place] [address] Jun, [facility] [address] [id number] [address] [place] [address] Jun, Closed compression fracture of L3 lumbar vertebra with routine healing, subsequent encounter S32.030D and Drug-induced constipation K59.03 [facility] [address] [id number] [address] [place] [address] Jun, [facility] [address] [id number] [address] [place] [address] Jun, [facility] [address] [facility] [id number] [address] [place] [address] Apr, [facility] [address] [facility] [id number] [address] [place] [address] 18 Apr, 2018 Morbid obesity E66.01 [facility] [address] [facility] [id number] [address] [place] [address] Apr, Morbid obesity E66.01 ; Hype rtriglyceridemia E78.1 ; Gastroesophageal reflux disease, esophagitis presence not specified K21.9 and Joint pain M25.50 [facility] [address] [facility] [id number] [address] [place] [address] Feb, [facility] [address] [facility] [id number] [address] [place] [address] Feb, [facility] [address] [facility] [id number] [address] [place] [address] Jan, Acute bacterial conjunctivit is H10.30 [facility] [address] [facility] [id number] [address] [place] [address] 08 Dec, 2017 [facility] [address] [facility] [id number] [address] [place] [phone] 04 Dec, 2017 [facility] [address] [facility] [id number] [address] [place] [address] 17 Nov, 2017 [facility] [address] [place] [id number] [address] [place] [address] 07 Nov, 2017 Obstructive sleep apnea G47. 33 ; Morbid obesity E66.01 and Gastroesophageal reflux disease, esophagitis presence not specified K21.9 [facility] [address] [id number] [address] [place] [id number] 06 Nov, 2017 Encounter for examination of eyes and vision without abnormal findings Z01.00 [facility] [address] [facility] [id number] [address] [place] [address] Oct, Thyroid nodule E04.1 and Scr eening for breast cancer Z12.31 [facility] [address] [id number] [address] [place] [address] Oct, History of DVT (deep vein th rombosis) Z86.718 ; Thyroid nodule E04.1 and Gastroesophageal reflux disease, esophagitis presence not specified K21.9 [facility] [address] [id number] [address] [place] [address] Oct, [facility] [address] [id number] [address] [place] [address] Sep, [place] [address] [id number] [address] [place] [address] Aug, [place] [address] [id number] [address] [place] [address] Aug, [place] [address] [id number] [address] [place] [address] Aug, Acute pain of left shoulder M25.512 and Thyroid nodule E04.1 [place] [address] [id number] [address] [place] [address] July, Superior glenoid labrum lesi on of left shoulder, subsequent encounter S43.432D [place] [address] [id number] [address] [place] [address] Jun, History of DVT (deep vein th rombosis) Z86.718 [place] [address] [id number] [address] [place] [address] Jun, History of DVT (deep vein th rombosis) Z86.718 [place] [address] [id number] [address] [place] [address] Jun, Impingement syndrome, should er, left M75.42 [place] [address] [id number] [address] [place] [address] May, Subacromial bursitis of left shoulder joint M75.52 [place] [address] [id number] [address] [place] [address] May, [facility] [address] [id number] [address] [place] [address] May, Hypertriglyceridemia E78.1 ; 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 and Excessive daytime sleepiness G47.19 [facility] [address] [id number] [address] [place] [address] May, History of DVT (deep vein th rombosis) Z86.718 ; Generalized anxiety disorder F41.1 ; Hypertriglyceridemia E78.1 ; 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 ; Subacromial bursitis of left shoulder joint M75.52 and Excessive daytime sleepiness G47.19 [facility] [address] [id number] [address] [place] [address] May, [facility] [address] [id number] [address] [place] [address] May, 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 [facility] [address] [id number] [address] [place] [address] Apr, USP (current) use of a nticoagulants Z79.01 [facility] [address] [id number] [address] [place] [address] Apr, USP (current) use of a nticoagulants Z79.01 [facility] [address] [id number] [address] [place] [address] Apr, 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 [facility] [address] [id number] [address] [place] [address] Apr, [facility] [address] [id number] [address] [place] [address] Apr, USP (current) use of a nticoagulants Z79.01 [facility] [address] [id number] [address] [place] [address] 13 Apr, 2017 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 [facility] [address] [id number] [address] [place] [address] Apr, 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 [facility] [address] [id number] [address] [place] [address] Apr, 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 [facility] [address] [id number] [address] [place] [address] Apr, USP (current) use of a nticoagulants Z79.01 [facility] [address] [id number] [address] [place] [address] Apr, USP (current) use of a nticoagulants Z79.01 [facility] [address] [id number] [address] [place] [address] Mar, 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 [facility] [address] [id number] [address] [place] [address] Mar, [facility] [address] [id number] [address] [place] [address] Mar, 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 [facility] [address] [id number] [address] [place] [id number] Jan, Dental examination Z01.20 [facility] [address] [id number] [address] [place] [address] [id number] Jan, [facility] [address] [id number] [address] [place] [address] Jan, 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 [facility] [address] [id number] [address] [place] [address] Jan, History of DVT (deep vein th rombosis) Z86.718 [facility] [address] [id number] [address] [place] [address] Jan, Generalized anxiety disorder F41.1 and Peripheral edema R60.9 [facility] [address] [id number] [address] [place] [address] Nov, History of DVT (deep vein th rombosis) Z86.718 [facility] [address] [id number] [address] [place] [address] Nov, 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 [facility] [address] [id number] [address] [place] [phone] Nov, Acute non-recurrent maxillar y sinusitis J01.00 [facility] [address] [id number] [address] [place] [address] Oct, 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 [facility] [address] [id number] [address] [place] [address] Oct, Personal history of venous t hrombosis and embolism Z86.718 [facility] [address] [id number] [address] [place] [address] Sep, [facility] [address] [id number] [address] [place] [address] Sep, Personal history of venous t hrombosis and embolism Z86.718 [facility] [address] [id number] [address] [place] [address] Sep, USP (current) use of a nticoagulants Z79.01 [facility] [address] [id number] [address] [place] [address] Sep, USP (current) use of a nticoagulants Z79.01 [facility] [address] [id number] [address] [place] [address] Sep, Generalized anxiety disorder F41.1 and History of DVT (deep vein thrombosis) Z86.718 [place] [address] [place] [id number] [address] [place] [address] Aug, History of DVT (deep vein th rombosis) Z86.718 ; Generalized anxiety disorder F41.1 ; USP (current) use of anticoagulants Z79.01 ; Pelvic pain R10.2 ; Hypertriglyceridemia E78.1 ; Excessive daytime sleepiness G47.19 ; Colon cancer screening Z12.11 ; Screening for breast cancer Z12.39 ; Peripheral edema R60.9 and Gastroesophageal reflux disease, esophagitis presence not specified K21.9 [place] [address] [address] Aug, [place] [address] [address] July, [place] [address] [address] July, History of DVT (deep vein th rombosis) Z86.718 [place] [address] [place] [id number] [address] [place] [address] Jun, Generalized anxiety disorder F41.1 [place] [address] [address] Jun, History of DVT (deep vein th rombosis) Z86.718 [place] [address] [place] [id number] [address] [place] [address] Jun, History of DVT (deep vein th rombosis) Z86.718 [place] [address] [place] [id number] [address] [place] [address] Jun, History of DVT (deep vein th rombosis) Z86.718 [place] [address] [place] [id number] [address] [place] [address] Jun, History of DVT (deep vein th rombosis) Z86.718 [facility] [address] [id number] [address] [place] [address] May, History of DVT (deep vein th rombosis) Z86.718 [facility] [address] [id number] [address] [place] [address] May, USP (current) use of a nticoagulants Z79.01 [facility] [address] [id number] [address] [place] [address] May, 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 [place] [address] [id number] [address] [place] [address] May, History of DVT (deep vein th rombosis) Z86.718 [facility] [address] [id number] [address] [place] [address] Apr, Bacterial conjunctivitis of left eye H10.9 and H/O motion sickness Z87.898 [facility] [address] [id number] [address] [place] [address] 24 Apr, 2016 History of DVT (deep vein th rombosis) Z86.718 [facility] [address] [id number] [address] [place] [address] Apr, History of DVT (deep vein th rombosis) Z86.718 [facility] [address] [id number] [address] [place] [address] 15 Apr, 2016 History of DVT (deep vein th rombosis) Z86.718 [facility] [address] [id number] [address] [place] [address] 14 Apr, 2016 USP (current) use of a nticoagulants Z79.01 [facility] [address] [id number] [address] [place] [address] Mar, [facility] [address] [id number] [address] [place] [address] Mar, 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 [facility] [address] [id number] [address] [place] [address] Mar, Hypertriglyceridemia E78.1 a nd USP (current) use of anticoagulants Z79.01 [facility] [address] [id number] [address] [place] [address] Feb, 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 [facility] [address] [id number] [address] [place] [address] Feb, USP (current) use of a nticoagulants Z79.01 [facility] [address] [id number] [address] [place] [address] Feb, 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 [facility] [address] [id number] [address] [place] [address] Dec, [facility] [address] [id number] [address] [place] [address] Nov, [place] [address] [facility] [id number] [address] [place] [address] Nov, History of DVT (deep vein th rombosis) Z86.718 ; Tremulousness R25.1 ; Generalized anxiety disorder F41.1 ; Peripheral edema R60.9 and Hypertriglyceridemia E78.1 [facility] [address] [id number] [address] [place] [address] Oct, History of DVT (deep vein th rombosis) Z86.718 [place] [address] [id number] [address] [place] [address] Oct, [place] [address] [facility] [id number] [address] [place] [address] Sep, History of DVT (deep vein th rombosis) Z86.718 [place] [address] [id number] [address] [place] [address] Sep, 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 [facility] [address] [id number] [address] [place] [address] July, [facility] [address] [facility] [id number] [address] [place] [address] July, USP (current) use of a nticoagulants Z79.01 [place] [address] [id number] [address] [place] [address] July, 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 [place] [address] [facility] [id number] [address] [place] [address] Jun, USP (current) use of a nticoagulants Z79.01 [facility] [place] [address] [facility] [id number] [address] [place] [address] Jun, Coccyx pain M53.3 ; Encounte r for therapeutic drug level monitoring Z51.81 and 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 current use 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.01 [place] [address] [facility] [id number] [address] [place] [address] May, Abnormal mammogram R92.8 [facility] [place] [address] [facility] [id number] [address] [place] [phone] May, [facility] [place] [address] [facility] [id number] [address] [place] [phone] May, Acute vaginitis N76.0 and En counter for other screening for malignant neoplasm of breast Z12.39 [place] [address] [address] [facility] [id number] [address] [place] [phone] Apr, [place] [address] [address] [facility] [id number] [address] [place] [phone] Apr, [place] [address] [address] [facility] [id number] [address] [place] [phone] Apr, Peripheral edema R60.9 [facility] [address] [id number] [address] [place] [phone] Apr, USP (current) use of a nticoagulants Z79.01 [facility] [address] [id number] [address] [place] [phone] Apr, Peripheral edema R60.9 and L jose martin term (current) 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 Z79.01 [facility] [address] [id number] [address] [place] [phone] Apr, USP (current) use of a nticoagulants Z79.01 [facility] [address] [id number] [address] [place] [phone] Apr, [facility] [address] [id number] [address] [place] [phone] Apr, 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 [facility] [address] [id number] [address] [place] [phone] Apr, Peripheral edema R60.9 [facility] [address] [id number] [address] [place] [phone] Mar, USP (current) use of a nticoagulants Z79.01 [facility] [address] [id number] [address] [place] [phone] Mar, 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 and Hypertriglyceridemia E78.1 [facility] [address] [id number] [address] [place] [phone] Mar, USP (current) use of a nticoagulants Z79.01 [facility] [address] [id number] [address] [place] [phone] Mar, USP (current) use of a nticoagulants Z79.01 [facility] [address] [id number] [address] [place] [phone] Mar, [facility] [facility] [address] [id number] [address] [place] [address] Mar, USP (current) use of a nticoagulants Z79.01 ; Hypertriglyceridemia E78.1 ; Personal history of venous thrombosis and embolism Z86.718 and Lump R22.9 [facility] [address] [id number] [address] [place] [address] Mar, Personal history of venous t hrombosis and embolism Z86.718 [facility] [address] [id number] [address] [place] [address] Mar, Personal history of venous t hrombosis and embolism Z86.718 [facility] [address] [id number] [address] [place] [address] Mar, [facility] [address] [id number] [address] [place] [address] Dec, Personal history of venous t hrombosis and embolism Z86.718 [facility] [address] [id number] [address] [place] [address] Dec, Personal history of venous t hrombosis and embolism V12.51 [facility] [address] [id number] [address] [place] [address] 28 Nov, 2014 Personal history of venous t hrombosis and embolism V12.51 [facility] [address] [id number] [address] [place] [address] 25 Nov, 2014 Personal history of venous t hrombosis and embolism V12.51 [facility] [address] [id number] [address] [place] [address] 17 Nov, 2014 Personal history of venous t hrombosis and embolism V12.51 [facility] [address] [id number] [address] [place] [address] 11 Nov, 2014 Personal history of venous t hrombosis and embolism V12.51 [facility] [address] [id number] [address] [place] [address] Nov, [facility] [address] [id number] [address] [place] [address] Oct, Dysuria 788.1 [facility] [address] [id number] [address] [place] [address] Oct, Personal history of venous t hrombosis and embolism V12.51 [facility] [address] [id number] [address] [place] [address] Oct, [facility] [address] [id number] [address] [place] [address] Oct, Personal history of venous t hrombosis and embolism V12.51 [facility] [address] [id number] [address] [place] [address] Sep, Personal history of venous t hrombosis and embolism V12.51 [facility] [address] [id number] [address] [place] [address] Sep, Personal history of venous t hrombosis and embolism V12.51 [facility] [address] [id number] [address] [place] [address] Aug, Personal history of venous t hrombosis and embolism V12.51 [facility] [address] [id number] [address] [place] [address] Aug, Personal history of venous t hrombosis and embolism V12.51 [facility] [address] [id number] [address] [place] [address] Aug, Personal history of venous t hrombosis and embolism V12.51 [facility] [address] [id number] [address] [place] [address] July, Generalized anxiety disorder 300.02 ; Abdominal pain, left lower quadrant 789.04 and Personal history of venous thrombosis and embolism V12.51 [facility] [address] [id number] [address] [place] [address] 14 Jun, 2014 [facility] [address] [id number] [address] [place] [address], [place] [address] 13 Jun, 2014 [facility] [address] [id number] [address] [place] [address], [place] [address] 27 May, 2014 [facility] [address] [id number] [address] [place] [address], [place] [address] May, [facility] [address] [id number] [address] [place] [address], [place] [address] May, [facility] [address] [id number] [address] [place] [address], [place] [address] May, [facility] [address] [id number] [address] [place] [address], [place] [address] May, [facility] [address] [id number] [address] [place] [address], [place] [address] May, [facility] [address] [id number] [address] [place] [address], [place] [address] May, [facility] [address] [id number] [address] [place] [address], [place] [address] May, [facility] [address] [id number] [address] [place] [address], [place] [address] Apr, [facility] [address] [id number] [address] [place] [address], [place] [address] Apr, [facility] [address] [id number] [address] [place] [address], [place] [address] Apr, [facility] [address] [id number] [address] [place] [address], [place] [address] Apr, [facility] [address] [id number] [address] [place] [address], [place] [address] Apr, [facility] [address] [id number] [address] [place] [address], [place] [address] Mar, [facility] [address] [id number] [address] [place] [address], [place] [address] Mar, [facility] [address] [id number] [address] [place] [address], [place] [address] Mar, [facility] [address] [id number] [address] [place] [address], [place] [address] Mar, [facility] [address] [id number] [address] [place] [address], [place] [address] Mar, [facility] [address] [id number] [address] [place] [address], [place] [address] Mar, [facility] [address] [id number] [address] [place] [address], [place] [address] Feb, [facility] [address] [id number] [address] [place] [address], [place] [address] Feb, [facility] [address] [id number] [address] [place] [address], [place] [address] Feb, [facility] [address] [id number] [address] [place] [address], [place] [address] Feb, [facility] [address] [id number] [address] [place] [address], [place] [address] Feb, [facility] [address] [id number] [address] [place] [address], [place] [address] Feb, [facility] [address] [id number] [address] [place] [address], [place] [address] Feb, [facility] [address] [id number] [address] [place] [address], [place] [address] Feb, [facility] [address] [id number] [address] [place] [address], [place] [address] Feb, [facility] [address] [id number] [address] [place] [address], [place] [address] Feb, [facility] [address] [id number] [address] [place] [address], [place] [address] Jan, [facility] [address] [id number] [address] [place] [address], [place] [address] Jan, [facility] [address] [id number] [address] [place] [address], [place] [address] Jan, [facility] [address] [id number] [address] [place] [address], [place] [address] Jan, [facility] [address] [id number] [address] [place] [address], [place] [address] Jan, [facility] [address] [id number] [address] [place] [address], [place] [address] Jan, [facility] [address] [id number] [address] [place] [address], [place] [address] Jan, [facility] [address] [id number] [address] [place] [address], [place] [address] Jan, [facility] [address] [id number] [address] [place] [address], [place] [address] Jan, [facility] [address] [id number] [address] [place] [address], [place] [address] Jan, [facility] [address] [id number] [address] [place] [address], [place] [address] Dec, [facility] [address] [id number] [address] [place] [address], [place] [address] Dec, [facility] [address] [id number] [address] [place] [address], [place] [address] Dec, [facility] [address] [id number] [address] [place] [address], [place] [address] Dec, [facility] [address] [id number] [address] [place] [address], [place] [address] Dec, [facility] [address] [id number] [address] [place] [address], [place] [address] Dec, [facility] [address] [id number] [address] [place] [address], [place] [address] Dec, [facility] [address] [id number] [address] [place] [address], [place] [address] Dec, [facility] [address] [id number] [address] [place] [address], [place] [address] Dec, [facility] [address] [id number] [address] [place] [address], [place] [address] Dec, [facility] [address] [id number] [address] [place] [address], [place] [address] Dec, [facility] [address] [id number] [address] [place] [address], [place] [address] Dec, [facility] [address] [id number] [address] [place] [address], [place] [address] Dec, [facility] [address] [id number] [address] [place] [address], [place] [address] Dec, [facility] [address] [id number] [address] [place] [address], [place] [address] Dec, [facility] [address] [id number] [address] [place] [address], [place] [address] 30 Nov, 2013 [facility] [address] [id number] [address] [place] [address], [place] [address] 30 Nov, 2013 [facility] [address] [id number] [address] [place] [address], [place] [address] 26 Nov, 2013 [facility] [address] [id number] [address] [place] [address], [place] [address] 26 Sep, 2013 [facility] [address] [id number] [address] [place] [address], [place] [address] 24 Nov, 2013 [facility] [address] [id number] [address] [place] [address], [place] [address] 24 Nov, 2013 [facility] [address] [id number] [address] [place] [address], [place] [address] 23 Nov, 2013 [facility] [address] [id number] [facility] [place] [address] 23 Nov, 2013 [facility] [address] [id number] [facility] [place] [address] 18 Nov, 2013 [facility] [address] [id number] [facility] [place] [address] 18 Nov, 2013 [facility] [address] [id number] [address] [place] [address], [place] [address] 17 Nov, 2013 [facility] [address] [id number] [address] [place] [address], [place] [address] 17 Nov, 2013 [facility] [address] [id number] [address] [place] [address], [place] [address] 11 Nov, 2013 [facility] [address] [id number] [address] [place] [address], [place] [address] 11 Nov, 2013 [facility] [address] [id number] [address] [place] [address], [place] [address] 10 Nov, 2013 [facility] [address] [id number] [address] [place] [address], [place] [address] 10 Nov, 2013 [facility] [address] [id number] [address] [place] [address], [place] [address] 08 Nov, 2013 [facility] [address] [id number] [address] [place] [address], [place] [address] 08 Nov, 2013 [facility] [address] [id number] [address] [place] [address], [place] [address] Sep, 2013 [facility] [address] [id number] [address] [place] [address], [place] [address] Sep, 2013 [facility] [address] [id number] [address] [place] [address], [place] [address] Sep, 2013 [facility] [address] [id number] [address] [place] [address], [place] [address] Sep, 2013 [facility] [address] [id number] [address] [place] [address], [place] [address] 07 Sep, 2013 [facility] [address] [id number] [facility] [place] [address] Sep, [facility] [address] [id number] [address] [place] [address], [place] [address] Aug, [facility] [address] [id number] [address] [place] [address], [place] [address] Aug, [facility] [address] [id number] [address] [place] [address], [place] [address] Aug, [facility] [address] [id number] [address] [place] [address], [place] [address] Aug, [facility] [address] [id number] [address] [place] [address], [place] [address] Aug, [facility] [address] [id number] [address] [place] [address], [place] [address] Aug, [facility] [address] [id number] [address] [place] [address], [place] [address] Aug, [facility] [address] [id number] [address] [place] [address], [place] [address] Aug, [facility] [address] [id number] [address] [place] [address], [place] [address] Aug, [facility] [address] [id number] [address] [place] [address], [place] [address] Aug, [facility] [address] [id number] [address] [place] [address], [place] [address] Aug, [facility] [address] [id number] [address] [place] [address], [place] [address] July, [facility] [address] [id number] [address] [place] [address], [place] [address] July, [facility] [address] [id number] [address] [place] [address], [place] [address] Jun, [facility] [address] [id number] [facility] [place] [address] Jun, [facility] [address] [id number] [facility] [place] [address] Jun, [facility] [address] [id number] [address] [place] [address], [place] [address] Jun, [facility] [address] [id number] [address] [place] [address], [place] [address] Jun, [facility] [address] [id number] [address] [place] [address], [place] [address] Jun, [facility] [address] [id number] [address] [place] [address], [place] [address] Jun, [facility] [address] [id number] [address] [place] [address], [place] [address] Jun, [facility] [address] [id number] [address] [place] [address], [place] [address] Jun, [facility] [address] [id number] [address] [place] [address], [place] [address] Jun, [facility] [address] [id number] [address] [place] [address], [place] [address] Jun, [facility] [address] [id number] [address] [place] [address], [place] [address] Jun, [facility] [address] [id number] [address] [place] [address], [place] [address] May, [facility] [address] [id number] [address] [place] [address], [place] [address] May, [facility] [address] [id number] [address] [place] [address], [place] [address] May, [facility] [address] [id number] [address] [place] [address], [place] [address] May, [facility] [address] [id number] [address] [place] [address], [place] [address] May, [facility] [address] [id number] [address] [place] [address], [place] [address] May, [facility] [address] [id number] [address] [place] [address], [place] [address] May, [facility] [address] [id number] [address] [place] [address], [place] [address] May, [facility] [address] [id number] [address] [place] [address], [place] [address] May, [facility] [address] [id number] [address] [place] [address], [place] [address] May, [facility] [address] [id number] [address] [place] [address], [place] [address] May, [facility] [address] [id number] [address] [place] [address], [place] [address] May, [facility] [address] [id number] [address] [place] [address], [place] [address] Apr, [facility] [address] [id number] [address] [place] [address], [place] [address] Apr, [facility] [address] [id number] [address] [place] [address], [place] [address] Apr, [facility] [address] [id number] [address] [place] [address], [place] [address] Apr, [facility] [address] [id number] [address] [place] [address], [place] [address] Apr, [facility] [address] [id number] [address] [place] [address], [place] [address] Apr, [facility] [address] [id number] [address] [place] [address], [place] [address] Apr, [facility] [address] [id number] [address] [place] [address], [place] [address] Apr, [facility] [address] [id number] [address] [place] [address], [place] [address] Apr, [facility] [address] [id number] [address] [place] [address], [place] [address] Apr, [facility] [address] [id number] [address] [place] [address], [place] [address] Apr, [facility] [address] [id number] [address] [place] [address], [place] [address] Apr, [facility] [address] [id number] [address] [place] [address], [place] [address] Apr, [facility] [address] [id number] [address] [place] [address], [place] [address] Apr, [facility] [address] [id number] [address] [place] [address], [place] [address] Apr, [facility] [address] [id number] [address] [place] [address], [place] [address] Apr, [facility] [address] [id number] [address] [place] [address], [place] [address] Apr, [facility] [address] [id number] [address] [place] [address], [place] [address] Jan, [facility] [address] [id number] [address] [place] [address], [place] [address] Jan, [facility] [address] [id number] [address] [place] [address] 08 Jan, 2013 [facility] [address] [id number] [address] [place] [address], [place] [address] Jan, [facility] [address] [id number] [address] [place] [address], [place] [address] Jan, [facility] [address] [id number] [address] [place] [address], [place] [address] 07 Jan, 2013 [facility] [address] [id number] [address] [place] [address], [place] [address] Jan, [facility] [address] [id number] [address] [place] [address], [place] [address] Dec, [facility] [address] [id number] [address] [place] [address], [place] [address] Dec, [facility] [address] [id number] [address] [place] [address], [place] [address] Dec, [facility] [address] [id number] [address] [place] [address], [place] [address] Nov, [facility] [address] [id number] [address] [place] [address], [place] [address] Nov, [facility] [address] [id number] [address] [place] [address], [place] [address] 05 Nov, 2012 [facility] [address] [id number] [address] [place] [address], [place] [address] Nov, [facility] [address] [id number] [address] [place] [address], [place] [address] Oct, [facility] [address] [id number] [address] [place] [address], [place] [address] Oct, [facility] [address] [id number] [address] [place] [address], [place] [address] Oct, [facility] [address] [id number] [address] [place] [address], [place] [address] Oct, [facility] [address] [id number] [address] [place] [address], [place] [address] Oct, [facility] [address] [id number] [address] [place] [address], [place] [address] Sep, [facility] [address] [id number] [address] [place] [address], [place] [address] Sep, [facility] [address] [id number] [address] [place] [address], [place] [address] Sep, [facility] [address] [id number] [address] [place] [address], [place] [address] Sep, [facility] [address] [id number] [address] [place] [address], [place] [address] Sep, [facility] [address] [id number] [address] [place] [address], [place] [address] Sep, [facility] [address] [id number] [address] [place] [address], [place] [address] Sep, [facility] [address] [id number] [address] [place] [address], [place] [address] Aug, [facility] [address] [id number] [address] [place] [address], [place] [address] Aug, [facility] [address] [id number] [address] [place] [address], [place] [address] July, [facility] [address] [id number] [address] [place] [address], [place] [address] Jun, [facility] [address] [id number] [address] [place] [address], [place] [address] Jun, [facility] [address] [id number] [address] [place] [address], [place] [address] Jun, [facility] [address] [id number] [address] [place] [address], [place] [address] Apr, [facility] [address] [id number] [address] [place] [address], [place] [address] Apr, [facility] [address] [id number] [address] [place] [address], [place] [address] Apr, [facility] [address] [id number] [address] [place] [address], [place] [address] Mar, [facility] [address] [id number] [address] [place] [address], [place] [address] Mar, [facility] [address] [id number] [address] [place] [address] 2012 [facility] [address] [id number] [address] [place] [address], [place] [address] 09 Mar, 2012 [facility] [address] [id number] [address] [place] [address], [place] [address] 07 Mar, 2012 [facility] [address] [id number] [address] [place] [address], [place] [address] 14 Feb, 2012 [facility] [address] [id number] [address] [place] [address], [place] [address] 14 Feb, 2012 [facility] [address] [id number] [address] [place] [address], [place] [address] 13 Jan, 2012 [facility] [address] [id number] [address] [place] [address], [place] [address] 13 Jan, 2012 [facility] [address] [id number] [address] [place] [address], [place] [address] Jan, [facility] [address] [id number] [address] [place] [address], [place] [address] Jan, [facility] [address] [id number] [address] [place] [address], [place] [address] 07 Jan, 2012 [facility] [address] [id number] [address] [place] [address], [place] [address] 07 Jan, 2012 [facility] [address] [id number] [address] [place] [address], [place] [address] Jan, [facility] [address] [id number] [address] [place] [address], [place] [address] Dec, [facility] [address] [id number] [address] [place] [address], [place] [address] Dec, [facility] [address] [address] [id number] [address] [place] [address], [place] [address] 30 Dec, 2011 [facility] [address] [id number] [address] [place] [address], [place] [address] 30 Dec, 2011 [facility] [address] [id number] [address] [place] [address], [place] [address] Dec, [facility] [address] [id number] [address] [place] [address], [place] [address] Dec, [facility] [address] [id number] [address] [place] [address], [place] [address] Dec, [facility] [address] [id number] [address] [place] [address], [place] [address] Dec, [facility] [address] [id number] [address] [place] [address], [place] [address] Dec, [facility] [address] [id number] [address] [place] [address], [place] [address] Dec, [facility] [address] [id number] [address] [place] [address], [place] [address] Oct, [facility] [address] [id number] [address] [place] [address], [place] [address] Oct, [facility] [address] [id number] [address] [place] [address], [place] [address] Aug, [facility] [address] [id number] [address] [place] [address], [place] [address] Aug, [facility] [address] [id number] [address] [place] [address], [place] [address] July, [facility] [address] [id number] [address] [place] [address], [place] [address] Jun, [facility] [address] [id number] [address] [place] [address], [place] [address] Jun, [facility] [address] [id number] [address] [place] [address], [place] [address] May, [facility] [address] [id number] [address] [place] [address], [place] [address] Apr, [facility] [address] [id number] [address] [place] [address], [place] [address] 16 Apr, 2011 [facility] [address] [id number] [address] [place] [address], [place] [address] Mar, [facility] [address] [id number] [address] [place] [address], [place] [address] 16 Mar, 2011 [facility] [address] [id number] [address] [place] [address], [place] [address] 19 Feb, 2011 [facility] [address] [id number] [address] [place] [address], [place] [address] 15 Feb, 2011 [facility] [address] [id number] [address] [place] [address], [place] [address] Feb, [facility] [address] [id number] [address] [place] [address], [place] [address] Feb, [facility] [address] [id number] [address] [place] [address], [place] [address] Jan, [facility] [address] [id number] [address] [place] [address], [place] [address] Dec, [facility] [address] [id number] [address] [place] [address], [place] [address] Feb, [facility] [address] [id number] [address] [place] [address], [place] [address] Feb, [facility] [address] [id number] [address] [place] [address], [place] [address] Feb, [facility] [address] [id number] [address] [place] [address] Feb, [facility] [address] [id number] [address] [place] [address], [place] [address] 15 Dec, 2009 [facility] [address] [id number] [address] [place] [address], [place] [address] 15 Dec, 2009 [facility] [address] [id number] [address] [place] [address], [place] [address] Oct, [facility] [address] [id number] [address] [place] [address] 15 Jun, 2009 [facility] [address] [facility] [id number] [address] [place] [address] Feb, [facility] [address] [facility] [id number] [address] [place] [address] Feb, [facility] [address] [facility] [id number] [address] [place] [address] Feb, [facility] [address] [facility] [id number] [address] [place] [address] Dec, IMMUNIZATIONS No Known Immunizations SOCIAL HISTORY Never Assessed REASON FOR VISIT PLAN OF CARE VITAL SIGNS MEDICATIONS Unknown Medications RESULTS No Results PROCEDURES Procedure Date Ordered Result Body Site PROTHROMBIN TIME Dec 14, 2013 INSTRUCTIONS MEDICATIONS ADMINISTERED No Known Medications MEDICAL (GENERAL) HISTORY Type Description Date Medical History obesity Medical History Hematologic disorder factor clotting pro [place] Medical History DVT's Medical History Torn Rotator Cuff, repaired 09/23/17 Surgical History Lap Band 10/2012 Surgical History section 1985, 1987 Surgical History cholecystectomy Surgical History [place] Filter 06/2009 Surgical History Left leg exploratory surgery r/t clot Surgical History left shoulder surgery 09/14/17 Surgical History lap band removed 12/2017 Surgical History gastic sleeve 01/2018 Surgical History Back surgery 2019 Surgical History Partial Thyroidectomy - left side 2019 Hospitalization History Ruptured Ovarian Cyst with abd bleed ing 11/2009 Hospitalization History Broken Back 06/2018
--- OUTSIDE RECORDS SUMMARY | 2019-10-19 12:26 | XMS REPORT ---
Author Author Mary Jane Das Organization [facility] Address [address] [place] [address] Care Team Providers Care Director Engineering Name Role Phone LOVE Das Unavailable PROBLEMS Type Condition ICD9-CM Code XVM67-EC Code Onset Dates Condition S tatus SNOMED Code Problem Thyroid follicular adenoma D34 Act phylicia 735241512 Problem History of DVT (deep vein thrombosis) Z86.718 Active 516091210 Problem Factor V Leiden D68.51 Active 3070 87504 Problem nursing home (current) use of anticoagulants Z79.01 Active 415023228 Problem Hypertriglyceridemia E78.1 Active 177709517 Problem 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 Active 412548997 Problem Pelvic pain R10.2 Active 81345242 Problem Peripheral edema R60.9 Active 271 139588 Problem Moderate episode of recurrent major depressive disorder F33.1 Active 611075559 Problem Presence of IVC filter Z95.828 Active 107363399 Problem Vitamin D deficiency E55.9 Active 18520489 Problem Generalized anxiety disorder F41.1 A ctive 312213153 Problem Excessive daytime sleepiness G47.19 A ctive 793911233085 Problem Gastroesophageal reflux disease, esophagitis pre sence not specified K21.9 Active 855106240 Problem Thyroid nodule E04.1 Active 82125 5005 Problem Morbid obesity E66.01 Active 06389 6002 ALLERGIES No Information ENCOUNTERS Encounter Location Date Diagnosis [facility] [address] [id number] [place] [address] Jan, [facility] [address] [id number] [place] [address] Jan, [facility] [address] [id number] [place] [address] Dec, Encounter for weight management Z76.89 [facility] [address] [address] Dec, Encounter for weight management Z76.89 a nd Screening mammogram, encounter for Z12.31 [place] [address] [address] Nov, Encounter for weight management Z76.89 [place] [address] [address] Nov, Thyroid nodule E04.1 [place] [address] [address] Nov, Thyroid nodule E04.1 [place] [address] [address] Nov, Thyroid nodule E04.1 [place] [address] [address] Oct, Syncope, unspecified syncope type R55 an d Encounter for weight management Z76.89 [place] [address] [address] Oct, Morbid obesity E66.01 [place] [address] [address] Oct, Hypertriglyceridemia E78.1 [place] [address] [address] Oct, [place] [address] [address] Oct, Hypertriglyceridemia E78.1 [place] [address] [address] Sep, Hypertriglyceridemia E78.1 and Vitamin D deficiency E55.9 [place] [address] [address] Sep, [place] [address] [address] Sep, Morbid obesity E66.01 ; Moderate episode of recurrent major depressive disorder F33.1 ; Hypertriglyceridemia E78.1 and Vitamin D deficiency E55.9 [place] [address] [address] Aug, [place] [address] [address] July, [facility] [address] [address] July, [place] [address] [address] Jun, [place] [address] [address] Jun, [place] [address] [address] Jun, Closed compression fracture of L3 lumbar vertebra with routine healing, subsequent encounter S32.030D and Drug-induced constipation K59.03 [place] [address] [address] Jun, [place] [address] [address] Jun, [place] [address] [address] Apr, [place] [address] [address] Apr, Morbid obesity E66.01 [place] [address] [address] Apr, Morbid obesity E66.01 ; Hypertriglycerid emia E78.1 ; Gastroesophageal reflux disease, esophagitis presence not specified K21.9 and Joint pain M25.50 [place] [address] [address] Feb, [place] [address] [address] Feb, [facility] [address] [facility] [id number] [address] [place] [address] Jan, Acute bacterial conjunctivit is H10.30 [facility] [address] [place] [id number] [place] [address] Dec, [facility] [address] [address] Dec, [facility] [address] [place] [id number] [place] [address] 17 Nov, 2017 [facility] [address] [address] 07 Nov, 2017 Obstructive sleep apnea G47.33 ; Morbid obesity E66.01 and Gastroesophageal reflux disease, esophagitis presence not specified K21.9 [facility] [address] [id number] [place] [id number] 06 Nov, 2017 Encounter for examination of eyes and vi ray without abnormal findings Z01.00 [place] [address] [place] [id number] [place] [address] Oct, Thyroid nodule E04.1 and Screening for b reast cancer Z12.31 [facility] [address] [place] [id number] [place] [address] Oct, History of DVT (deep vein thrombosis) Z8 6.718 ; Thyroid nodule E04.1 and Gastroesophageal reflux disease, esophagitis presence not specified K21.9 [facility] [address] [address] Oct, [facility] [address] [address] Sep, [facility] [address] [address] Aug, [facility] [address] [address] Aug, [facility] [address] [address] Aug, Acute pain of left shoulder M25.512 [address] Thy[address]1 [facility] [address] [address] July, Superior glenoid labrum lesion of left s kirill, subsequent encounter S43.432D [place] [address] [address] Jun, History of DVT (deep vein thrombosis) Z8 6.718 [place] [address] [address] Jun, History of DVT (deep vein thrombosis) Z8 6.718 [place] [address] [address] Jun, Impingement syndrome, shoulder, left M75 .42 [place] [address] [address] May, Subacromial bursitis of left shoulder saurabh int M75.52 [place] [address] [address] May, [place] [address] [address] May, Hypertriglyceridemia E78.1 ; nursing home ( current) use of anticoagulants Z79.01 and Excessive daytime sleepiness G47.19 [place] [address] [address] May, History of DVT (deep vein thrombosis) Z8 6.718 ; Generalized anxiety disorder F41.1 ; Hypertriglyceridemia E78.1 ; nursing home (current) use of anticoagulants Z79.01 ; Subacromial bursitis of left shoulder joint M75.52 and Excessive daytime sleepiness G47.19 [place] [address] [address] May, [place] [address] [address] May, 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 [place] [address] [address] Apr, 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 [place] [address] [address] Apr, nursing home (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 Z79.01 [place] [address] [address] 20 Apr, 2017 nursing home (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 Z79.01 [place] [address] [address] Apr, [place] [address] [address] Apr, 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 [place] [address] [address] 13 Apr, 2017 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 [place] [address] [address] Apr, 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 [place] [address] [address] Apr, 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 [place] [address] [address] 07 Apr, 2017 nursing home (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 Z79.01 [place] [address] [address] Apr, 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 [address] [address] Jan, nursing home (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 Z79.01 [facility] [address] [address] Jan, History of DVT (deep vein thrombosis) Z8 6.718 [facility] [address] [address] Jan, Generalized anxiety disorder F41.1 and P eripheral edema R60.9 [facility] [address] [address] Nov, History of DVT (deep vein thrombosis) Z8 6.718 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 [address] [facility] [facility] [id number] [address] [place] [address] Nov, Acute non-recurrent maxillar y sinusitis J01.00 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 [address] [address] Oct, Personal history of venous thrombosis an d embolism Z86.718 [facility] [address] [address] Sep, [facility] [address] [address] Sep, Personal history of venous thrombosis an d embolism Z86.718 [facility] [address] [address] Sep, nursing home (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 Z79.01 [place] [address] [address] Sep, nursing home (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 Z79.01 [place] [address] [address] Sep, Generalized anxiety disorder F41.1 and H istory of DVT (deep vein thrombosis) Z86.718 [place] [address] [address] Aug, History of DVT (deep vein thrombosis) Z8 6.718 ; Generalized anxiety disorder F41.1 ; nursing home (current) use of anticoagulants Z79.01 ; Pelvic pain R10.2 ; Hypertriglyceridemia E78.1 ; Excessive daytime sleepiness G47.19 ; Colon cancer screening Z12.11 ; Screening for breast cancer Z12.39 ; Peripheral edema R60.9 and Gastroesophageal reflux disease, esophagitis presence not specified K21.9 [place] [address] [address] Aug, [place] [address] [address] July, [place] [address] [address] July, History of DVT (deep vein thrombosis) Z8 6.718 [place] [address] [address] Jun, Generalized anxiety disorder F41.1 [place] [address] [address] Jun, History of DVT (deep vein thrombosis) Z8 6.718 [place] [address] [address] Jun, History of DVT (deep vein thrombosis) Z8 6.718 [place] [address] [address] Jun, History of DVT (deep vein thrombosis) Z8 6.718 [facility] [address] [address] Jun, History of DVT (deep vein thrombosis) Z8 6.718 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 [address] [facility] [facility] [id number] [address] [place] [address] 27 Apr, 2016 Bacterial conjunctivitis of left eye H10.9 and H/O motion sickness Z87.898 [place] [address] [address] 24 Apr, 2016 History of DVT (deep vein thrombosis) Z8 6.718 [place] [address] [address] 23 Apr, 2016 History of DVT (deep vein thrombosis) Z8 6.718 [place] [address] [address] 15 Apr, 2016 History of DVT (deep vein thrombosis) Z8 6.718 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 [place] [address] [address] Feb, 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 [place] [address] [address] Feb, 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 [place] [address] [address] Dec, [place] [address] [address] Nov, [place] [address] [address] Nov, History of DVT (deep vein thrombosis) Z8 6.718 ; Tremulousness R25.1 ; Generalized anxiety disorder F41.1 ; Peripheral edema R60.9 and Hypertriglyceridemia E78.1 [place] [address] [address] Oct, History of DVT (deep vein thrombosis) Z8 6.718 [place] [address] [address] Oct, [place] [address] [address] Sep, History of DVT (deep vein thrombosis) Z8 6.718 [place] [address] [address] Sep, nursing home (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 Z79.01 [place] [address] [address] July, [place] [address] [address] July, nursing home (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 Z79.01 [place] [address] [address] July, 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 [place] [address] [address] Jun, 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 [facility] [address] [place] [id number] [place] [address] Jun, Coccyx pain M53.3 ; Encounte r for therapeutic drug level monitoring Z51.81 and nursing home current use 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.01 [place] [address] [address] May, Abnormal mammogram R92.8 [facility] [place] [address] [address] May, [facility] [address] [address] May, Acute vaginitis N76.0 and En counter for other screening for malignant neoplasm of breast Z12.39 [place] [address] [address] Apr, [place] [address] [address] Apr, [place] [address] [address] Apr, Peripheral edema R60.9 [place] [address] [address] Apr, nursing home (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 Z79.01 [place] [address] [address] Apr, Peripheral edema R60.9 and terminal press operator (cu rrent) use of anticoagulants Z79.01 [place] [address] [address] Apr, nursing home (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 Z79.01 [place] [address] [address] Apr, [place] [address] [address] Apr, 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 [place] [address] [address] Apr, Peripheral edema R60.9 [place] [address] [address] Mar, 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 [place] [address] [address] Mar, 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 and Hypertriglyceridemia E78.1 [place] [address] [address] Mar, nursing home (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 Z79.01 [place] [address] [address] Mar, 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 [place] [address] [address] Mar, [place] [address] [address] Mar, 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 ; Hypertriglyceridemia E78.1 ; Personal history of venous thrombosis and embolism Z86.718 and Lump R22.9 [place] [address] [address] Mar, Personal history of venous thrombosis an d embolism Z86.718 [place] [address] [address] Mar, Personal history of venous thrombosis an d embolism Z86.718 [place] [address] [address] Mar, [place] [address] [address] Dec, Personal history of venous thrombosis an d embolism Z86.718 [place] [address] [address] Dec, Personal history of venous thrombosis an d embolism V12.51 [place] [address] [address] Nov, Personal history of venous thrombosis an d embolism V12.51 [place] [address] [address] Nov, Personal history of venous thrombosis an d embolism V12.51 [place] [address] [address] Nov, Personal history of venous thrombosis an d embolism V12.51 [place] [address] [address] Nov, Personal history of venous thrombosis an d embolism V12.51 [place] [address] [address] Nov, [place] [address] [address] Oct, Dysuria 788.1 [place] [address] [address] Oct, Personal history of venous thrombosis an d embolism V12.51 [place] [address] [address] Oct, [facility] [address] [place] [id number] [place] [address] Oct, Personal history of venous thrombosis an d embolism V12.51 [facility] [address] [place] [id number] [place] [address] Sep, Personal history of venous thrombosis an d embolism V12.51 [facility] [address] [address] Sep, Personal history of venous thrombosis an d embolism V12.51 [facility] [address] [address] Aug, Personal history of venous thrombosis an d embolism V12.51 [facility] [address] [address] Aug, Personal history of venous thrombosis an d embolism V12.51 [facility] [address] [address] Aug, Personal history of venous thrombosis an d embolism V12.51 [facility] [address] [place] [id number] [place] [address] July, Generalized anxiety disorder 300.02 ; Ab dominal pain, left lower quadrant 789.04 and Personal history of venous thrombosis and embolism V12.51 [facility] [address] [place] [id number] [place] [address] Jun, [facility] [address] [place] [id number] [place] [address] Jun, [facility] [address] [place] [id number] [place] [address] May, [facility] [address] [address] May, [facility] [address] [place] [id number] [place] [address] May, [facility] [address] [address] May, [facility] [address] [facility] [id number] [place] [address] May, [facility] [address] [facility] [facility] [id number] [facility] [address] May, [facility] [address] [facility] [facility] [id number] [place] [address] May, [facility] [address] [id number] [place] [address] May, [facility] [address] [facility] [id number] [place] [address] Apr, [facility] [address] [id number] [place] [address] Apr, [facility] [address] [id number] [place] [address] Apr, [facility] [address] [id number] [place] [address] Apr, [facility] [address] [id number] [place] [address] Apr, [facility] [address] [id number] [place] [address] Mar, [facility] [address] [id number] [place] [address] Mar, [facility] [address] [id number] [place] [address] Mar, [facility] [address] [id number] [place] [address] Mar, [facility] [address] [id number] [place] [address] Mar, [facility] [address] [id number] [place] [address] Mar, [facility] [address] [id number] [place] [address] Feb, [facility] [address] [id number] [place] [address] 17 Feb, 2014 [facility] [address] [id number] [place] [address] Feb, [facility] [address] [id number] [place] [address] Feb, [facility] [address] [id number] [place] [address] Feb, [facility] [address] [id number] [place] [address] Feb, [facility] [address] [id number] [place] [address] Feb, [facility] [address] [id number] [place] [address] Feb, [facility] [address] [id number] [place] [address] Feb, [facility] [address] [id number] [place] [address] Feb, [facility] [address] [id number] [place] [address] Jan, [facility] [address] [id number] [place] [address] Jan, [facility] [address] [id number] [place] [address] Jan, [facility] [address] [id number] [place] [address] Jan, [facility] [address] [id number] [place] [address] Jan, [facility] [address] [place] [id number] [place] [address] Jan, [facility] [address] [id number] [place] [address] Jan, [facility] [address] [id number] [place] [address] Jan, [facility] [address] [facility] [id number] [place] [address] Jan, 2013 [facility] [address] [facility] [id number] [place] [address] Jan, [facility] [address] [id number] [place] [address] Dec, [facility] [address] [id number] [place] [address] Dec, [facility] [address] [facility] [id number] [place] [address] Dec, [facility] [address] [id number] [place] [address] Dec, [facility] [address] [id number] [place] [address] Dec, [facility] [address] [id number] [place] [address] Dec, [facility] [address] [id number] [place] [address] Dec, [facility] [address] [id number] [place] [address] Dec, [facility] [address] [id number] [place] [address] Dec, [facility] [address] [id number] [place] [address] Dec, [facility] [address] [id number] [place] [address] Dec, [facility] [address] [facility] [id number] [place] [address] Dec, [facility] [address] [id number] [place] [address] Dec, [facility] [address] [id number] [place] [address] Dec, [facility] [address] [id number] [place] [address] Dec, [facility] [address] [facility] [id number] [place] [address] 30 Nov, 2013 [facility] [address] [facility] [id number] [place] [address] 30 Nov, 2013 [facility] [address] [id number] [place] [address] 26 Nov, 2013 [facility] [address] [id number] [place] [address] 26 Nov, 2013 [facility] [address] [facility] [id number] [place] [address] 24 Nov, 2013 [facility] [address] [id number] [place] [address] 24 Nov, 2013 [facility] [address] [id number] [place] [address] 23 Nov, 2013 [facility] [address] [id number] [place] [address] 23 Nov, 2013 [facility] [address] [id number] [place] [address] 18 Nov, 2013 [facility] [id number] [place] [address] 18 Nov, 2013 [facility] [id number] [place] [address] 17 Nov, 2013 [facility] [id number] [place] [address] 17 Nov, 2013 [facility] [id number] [place] [address] 11 Nov, 2013 [facility] [address] [id number] [place] [address] 11 Nov, 2013 [facility] [id number] [place] [address] 10 Nov, 2013 [facility] [id number] [place] [address] 10 Nov, 2013 [facility] [id number] [place] [address] 08 Nov, 2013 [facility] [address] [id number] [place] [address] 08 Nov, 2013 [facility] [address] [id number] [place] [address] Sep, [facility] [id number] [place] [address] Sep, 2013 [facility] [address] [id number] [place] [address] Sep, 2013 [facility] [address] [id number] [place] [address] Sep, [facility] [id number] [place] [address] Sep, [facility] [id number] [place] [address] Sep, [facility] [id number] [place] [address] Aug, [facility] [address] [id number] [place] [address] Aug, [facility] [id number] [place] [address] Aug, [facility] [id number] [place] [address] Aug, [facility] [id number] [place] [address] Aug, [facility] [address] [id number] [place] [address] Aug, [facility] [id number] [place] [address] Aug, [facility] [id number] [place] [address] Aug, [facility] [id number] [place] [address] Aug, [facility] [address] [id number] [place] [address] Aug, [facility] [address] [id number] [place] [address] Aug, [facility] [address] [id number] [place] [address] July, [facility] [id number] [place] [address] July, [facility] [address] [id number] [place] [address] Jun, [facility] [id number] [place] [address] Jun, [facility] [id number] [place] [address] Jun, [facility] [id number] [place] [address] Jun, [facility] [id number] [place] [address] Jun, [facility] [id number] [place] [address] Jun, [facility] [id number] [place] [address] 15 Jun, 2013 [facility] [id number] [place] [address] 15 Jun, 2013 [facility] [id number] [place] [address] Jun, [facility] [address] [id number] [place] [address] 11 Jun, 2013 [facility] [id number] [place] [address] 10 Jun, 2013 [facility] [id number] [place] [address] Jun, [facility] [id number] [place] [address] May, [facility] [id number] [place] [address] May, [facility] [id number] [place] [address] May, [facility] [id number] [place] [address] May, [facility] [id number] [place] [address] May, [facility] [id number] [place] [address] May, [facility] [id number] [place] [address] May, [facility] [id number] [place] [address] May, [facility] [id number] [place] [address] May, [facility] [id number] [place] [address] May, [facility] [id number] [place] [address] May, [facility] [id number] [place] [address] May, [facility] [id number] [place] [address] Apr, [facility] [id number] [place] [address] Apr, [facility] [id number] [place] [address] Apr, [facility] [id number] [place] [address] Apr, [facility] [id number] [place] [address] Apr, [facility] [id number] [place] [address] Apr, [facility] [id number] [place] [address] Apr, [facility] [id number] [place] [address] Apr, [facility] [id number] [place] [address] Apr, [facility] [id number] [place] [address] Apr, [facility] [id number] [place] [address] Apr, [facility] [id number] [place] [address] Apr, [facility] [id number] [place] [address] Apr, [facility] [id number] [place] [address] Apr, [facility] [id number] [place] [address] Apr, [facility] [id number] [place] [address] Apr, [facility] [id number] [place] [address] Apr, [facility] [id number] [place] [address] Jan, [facility] [id number] [place] [address] Jan, [facility] [id number] [place] [address] Jan, [facility] [id number] [place] [address] Jan, [facility] [id number] [place] [address] 07 Jan, 2013 [facility] [address] [id number] [place] [address] Jan, [facility] [id number] [place] [address] Jan, [facility] [id number] [place] [address] Dec, [facility] [id number] [place] [address] Dec, [facility] [id number] [place] [address] Dec, [facility] [id number] [place] [address] Nov, [facility] [id number] [place] [address] Nov, [facility] [id number] [place] [address] Nov, [facility] [id number] [place] [address] Nov, [facility] [id number] [place] [address] Oct, [facility] [id number] [place] [address] Oct, [facility] [id number] [place] [address] Oct, [facility] [id number] [place] [address] Oct, [facility] [id number] [place] [address] Oct, [facility] [id number] [place] [address] Sep, [facility] [id number] [place] [address] Sep, [facility] [address] [id number] [place] [address] Sep, [facility] [id number] [place] [address] Sep, [facility] [id number] [place] [address] Sep, [facility] [id number] [place] [address] Sep, [facility] [id number] [place] [address] Sep, [facility] [id number] [place] [address] Aug, [facility] [id number] [place] [address] Aug, [facility] [id number] [place] [address] July, [facility] [id number] [place] [address] Jun, [facility] [id number] [place] [address] Jun, [facility] [id number] [place] [address] Jun, [facility] [id number] [place] [address] Apr, [facility] [id number] [place] [address] Apr, [facility] [id number] [place] [address] Apr, [facility] [id number] [place] [address] Mar, [facility] [id number] [place] [address] Mar, [facility] [id number] [place] [address] 2012 [facility] [id number] [place] [address] Mar, [facility] [id number] [place] [address] Mar, [facility] [id number] [place] [address] 14 Feb, 2012 [facility] [id number] [place] [address] 14 Feb, 2012 [facility] [id number] [place] [address] Jan, [facility] [id number] [place] [address] Jan, [facility] [id number] [place] [address] Jan, [facility] [id number] [place] [address] Jan, [facility] [id number] [place] [address] Jan, [facility] [id number] [place] [address] Jan, [facility] [id number] [place] [address] 06 Jan, 2012 [facility] [id number] [place] [address] Dec, [facility] [id number] [place] [address] Dec, [facility] [id number] [place] [address] 30 Dec, 2011 [facility] [id number] [place] [address] 30 Dec, 2011 [facility] [id number] [place] [address] 30 Dec, 2011 [facility] [id number] [place] [address] Dec, [facility] [id number] [place] [address] Dec, [facility] [id number] [place] [address] Dec, [facility] [id number] [place] [address] Dec, [facility] [id number] [place] [address] Dec, [facility] [id number] [place] [address] Oct, [facility] [id number] [place] [address] Oct, [facility] [address] [id number] [place] [address] Aug, [facility] [id number] [place] [address] Aug, [facility] [id number] [place] [address] July, [facility] [id number] [place] [address] Jun, [facility] [id number] [place] [address] Jun, [facility] [id number] [place] [address] May, [facility] [id number] [place] [address] Apr, [facility] [id number] [place] [address] Apr, [facility] [id number] [place] [address] Mar, [facility] [id number] [place] [address] Mar, [facility] [id number] [place] [address] 19 Feb, 2011 [facility] [id number] [place] [address] 15 Feb, 2011 [facility] [id number] [place] [address] 13 Feb, 2011 [facility] [id number] [place] [address] 13 Feb, 2011 [facility] [id number] [place] [address] Jan, [facility] [id number] [place] [address] 17 Dec, 2010 [facility] [id number] [place] [address] 08 Feb, 2010 [facility] [id number] [place] [address] 02 Feb, 2010 [facility] [id number] [place] [address] Feb, [facility] [id number] [place] [address] Feb, [facility] [id number] [place] [address] 15 Dec, 2009 [facility] [id number] [place] [address] 15 Dec, 2009 [facility] [id number] [place] [address] Oct, [facility] [id number] [place] [address] 15 Jun, 2009 [facility] [id number] [place] [address] Feb, [facility] [id number] [place] [address] 18 Feb, 2008 [facility] [id number] [place] [address] Feb, [facility] [address] [id number] [place] [address] Dec, IMMUNIZATIONS No Known Immunizations SOCIAL HISTORY Never Assessed REASON FOR VISIT PLAN OF CARE VITAL SIGNS MEDICATIONS Unknown Medications RESULTS No Results PROCEDURES Procedure Date Ordered Result Body Site COMPLETE CBC W/AUTO DIFF WBC September 07, 2013 PROTHROMBIN TIME September 07, 2013 COMPREHEN METABOLIC PANEL September 07, 2013 VENIPUNCT, ROUTINE* September 07, 2013 INSTRUCTIONS MEDICATIONS ADMINISTERED No Known Medications [...] sleeve 01/2018 Surgical History Back surgery 2019 Hospitalization History Ruptured Ovarian Cyst with abd bleed ing 11/2009 Hospitalization History Broken Back 06/2018
--- OUTSIDE RECORDS SUMMARY | 2019-10-19 12:27 | XMS REPORT ---
Author Author Mary Jane Das Organization [facility] Address [address] [place] [address] Care Team Providers Care Vice President Of News Name Role Phone LOVE Das Unavailable PROBLEMS Type Condition ICD9-CM Code QOI13-KN Code Onset Dates Condition S tatus SNOMED Code Problem Thyroid follicular adenoma D34 Act phylicia 839995423 Problem History of DVT (deep vein thrombosis) Z86.718 Active 812704010 Problem Factor V Leiden D68.51 Active 3070 15156 Problem care home (current) use of anticoagulants Z79.01 Active 291259458 Problem Hypertriglyceridemia E78.1 Active 487535133 Problem 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 Active 799546765 Problem Pelvic pain R10.2 Active 86164406 Problem Peripheral edema R60.9 Active 271 471052 Problem Moderate episode of recurrent major depressive disorder F33.1 Active 671151343 Problem Presence of IVC filter Z95.828 Active 537930344 Problem Vitamin D deficiency E55.9 Active 75122499 Problem Generalized anxiety disorder F41.1 A ctive 249656752 Problem Excessive daytime sleepiness G47.19 A ctive 831412631846 Problem Gastroesophageal reflux disease, esophagitis pre sence not specified K21.9 Active 716759230 Problem Thyroid nodule E04.1 Active 78381 5005 Problem Morbid obesity E66.01 Active 35742 6002 ALLERGIES No Information ENCOUNTERS Encounter Location Date Diagnosis [facility] [address] [facility] [id number] [address] [place] [phone] Dec, Screening mammogram, encount er for Z12.31 [facility] [address] [facility] [id number] [address] [place] [phone] Nov, Encounter for weight managem ent Z76.89 [facility] [address] [facility] [id number] [address] [place] [phone] Nov, Thyroid nodule E04.1 [facility] [address] [facility] [id number] [address] [place] [phone] Nov, Thyroid nodule E04.1 [facility] [address] [facility] [id number] [address] [place] [phone] 06 Nov, 2018 Thyroid nodule E04.1 [facility] [address] [facility] [id number] [address] [place] [phone] Oct, Syncope, unspecified syncope type R55 and Encounter for weight management Z76.89 [place] [address] [facility] [id number] [address] [place] [phone] Oct, Morbid obesity E66.01 [place] [address] [facility] [id number] [address] [place] [phone] Oct, Hypertriglyceridemia E78.1 [place] [address] [facility] [id number] [address] [place] [phone] Oct, [facility] [address] [facility] [id number] [address] [place] [phone] Oct, Hypertriglyceridemia E78.1 [place] [address] [facility] [id number] [address] [place] [phone] Sep, Hypertriglyceridemia E78.1 a nd Vitamin D deficiency E55.9 [place] [address] [facility] [id number] [address] [place] [phone] Sep, [facility] [address] [facility] [id number] [address] [place] [phone] Sep, Morbid obesity E66.01 ; Mode rate episode of recurrent major depressive disorder F33.1 ; Hypertriglyceridemia E78.1 and Vitamin D deficiency E55.9 [place] [address] [facility] [id number] [address] [place] [phone] Aug, [facility] [address] [facility] [id number] [address] [place] [phone] July, [place] [address] [facility] [id number] [address] [place] [phone] July, [facility] [address] [facility] [id number] [address] [place] [phone] Jun, [facility] [address] [facility] [id number] [address] [place] [phone] Jun, [facility] [address] [place] [id number] [place] [phone] Jun, Closed compression fracture of L3 lumbar vertebra with routine healing, subsequent encounter S32.030D and Drug-induced constipation K59.03 [facility] [address] [facility] [id number] [place] [phone] Jun, [facility] [address] [facility] [id number] [place] [phone] Jun, [facility] [address] [place] [id number] [place] [phone] Apr, [facility] [address] [place] [id number] [address] [place] [phone] Apr, Morbid obesity E66.01 [facility] [address] [address] Apr, Morbid obesity E66.01 ; Hype rtriglyceridemia E78.1 ; Gastroesophageal reflux disease, esophagitis presence not specified K21.9 and Joint pain M25.50 [facility] [address] [facility] [id number] [address] [place] [phone] Feb, [facility] [address] [facility] [id number] [address] [place] [phone] Feb, [facility] [address] [place] [id number] [address] [place] [phone] Jan, Acute bacterial conjunctivit is H10.30 [facility] [address] [place] [id number] [address] [place] [phone] Dec, [place] [address] [facility] [id number] [address] [place] [phone] 04 Dec, 2017 [facility] [address] [facility] [id number] [address] [place] [phone] 17 Nov, 2017 [facility] [address] [facility] [id number] [address] [place] [phone] 07 Nov, 2017 Obstructive sleep apnea G47. 33 ; Morbid obesity E66.01 and Gastroesophageal reflux disease, esophagitis presence not specified K21.9 [facility] [address] [id number] [address] [place] [id number] 06 Nov, 2017 Encounter for examination of eyes and vision without abnormal findings Z01.00 [facility] [address] [facility] [id number] [address] [place] [id number] 31 Oct, 2017 Thyroid nodule E04.1 and Scr eening for breast cancer Z12.31 [place] [address] [facility] [id number] [address] [place] [phone] 23 Oct, 2017 History of DVT (deep vein th rombosis) Z86.718 ; Thyroid nodule E04.1 and Gastroesophageal reflux disease, esophagitis presence not specified K21.9 [facility] [address] [facility] [id number] [address] [place] [phone] Oct, [facility] [address] [facility] [id number] [address] [place] [phone] Sep, [facility] [address] [facility] [id number] [address] [place] [phone] Aug, [facility] [address] [facility] [id number] [address] [place] [phone] Aug, [facility] [address] [facility] [id number] [address] [place] [phone] Aug, Acute pain of left shoulder M25.512 and Thyroid nodule E04.1 [facility] [address] [facility] [id number] [address] [place] [phone] July, Superior glenoid labrum lesi on of left shoulder, subsequent encounter S43.432D [facility] [address] [place] [id number] [address] [place] [phone] Jun, History of DVT (deep vein th rombosis) Z86.718 [facility] [address] [place] [id number] [address] [place] [phone] Jun, History of DVT (deep vein th rombosis) Z86.718 [place] [address] [place] [id number] [place] [address] Jun, Impingement syndrome, should er, left M75.42 [place] [address] [phone] May, Subacromial bursitis of left shoulder joint M75.52 [place] [address] [address] May, [place] [address] [address] May, Hypertriglyceridemia E78.1 ; care home (current) use of anticoagulants Z79.01 and Excessive daytime sleepiness G47.19 [place] [address] [address] May, History of DVT (deep vein th rombosis) Z86.718 ; Generalized anxiety disorder F41.1 ; Hypertriglyceridemia E78.1 ; terminologist (current) use of anticoagulants Z79.01 ; Subacromial bursitis of left shoulder joint M75.52 and Excessive daytime sleepiness G47.19 [place] [address] [place] [id number] [address] [place] [phone] May, [address] [phone] May, care home (current) use of a nticoagulants Z79.01 [place] [address] [place] [id number] [place] [phone] Apr, terminologist (current) use of a nticoagulants Z79.01 [facility] [address] [id number] [address] [place] [phone] Apr, terminologist (current) use of a nticoagulants Z79.01 [facility] [address] [id number] [address] [place] [id number] Apr, care home (current) use of a nticoagulants Z79.01 [facility] [address] [id number] [address] [place] [id number] Apr, [facility] [address] [id number] [address] [place] [phone] Apr, care home (current) use of a nticoagulants Z79.01 [facility] [address] [id number] [address] [place] [phone] 13 Apr, 2017 care home (current) use of a nticoagulants Z79.01 [facility] [address] [id number] [address] [place] [phone] Apr, terminologist (current) use of a nticoagulants Z79.01 [facility] [address] [id number] [address] [place] [phone] Apr, terminologist (current) use of a nticoagulants Z79.01 [facility] [address] [id number] [address] [place] [phone] Apr, terminologist (current) use of a nticoagulants Z79.01 [facility] [address] [id number] [address] [place] [phone] Apr, terminologist (current) use of a nticoagulants Z79.01 [facility] [address] [id number] [address] [place] [phone] Mar, terminologist (current) use of a nticoagulants Z79.01 [facility] [address] [id number] [address] [place] [phone] Mar, [facility] [address] [id number] [address] [place] [phone] Mar, terminologist (current) use of a nticoagulants Z79.01 [facility] [address] [id number] [address] [place] [id number] Jan, Dental examination Z01.20 [facility] [address] [id number] [address] [place] [address] [id number] Jan, [facility] [address] [id number] [address] [place] [phone] Jan, terminologist (current) use of a nticoagulants Z79.01 [facility] [address] [id number] [address] [place] [phone] Jan, History of DVT (deep vein th rombosis) Z86.718 [facility] [address] [id number] [address] [place] [phone] Jan, Generalized anxiety disorder F41.1 and Peripheral edema R60.9 [facility] [address] [id number] [address] [place] [phone] Nov, History of DVT (deep vein th rombosis) Z86.718 [facility] [address] [id number] [address] [place] [phone] Nov, terminologist (current) use of a nticoagulants Z79.[address] [facility] [address] [id number] [address] [place] [phone] Nov, Acute non-recurrent maxillar y sinusitis J01.00 [facility] [address] [id number] [address] [place] [phone] Oct, care home (current) use of a nticoagulants Z79.01 [facility] [address] [id number] [address] [place] [phone] Oct, Personal history of venous t hrombosis and embolism Z86.718 [facility] [address] [id number] [address] [place] [id number] Sep, [place] [address] [facility] [id number] [address] [place] [phone] Sep, Personal history of venous t hrombosis and embolism Z86.718 [place] [address] [facility] [id number] [address] [place] [phone] Sep, care home (current) use of a nticoagulants Z79.01 [place] [address] [id number] [address] [place] [phone] Sep, terminologist (current) use of a nticoagulants Z79.01 [place] [address] [facility] [id number] [address] [place] [id number] Sep, Generalized anxiety disorder F41.1 and History of DVT (deep vein thrombosis) Z86.718 [place] [address] [facility] [id number] [address] [place] [phone] Aug, History of DVT (deep vein th rombosis) Z86.718 ; Generalized anxiety disorder F41.1 ; care home (current) use of anticoagulants Z79.01 ; Pelvic pain R10.2 ; Hypertriglyceridemia E78.1 ; Excessive daytime sleepiness G47.19 ; Colon cancer screening Z12.11 ; Screening for breast cancer Z12.39 ; Peripheral edema R60.9 and Gastroesophageal reflux disease, esophagitis presence not specified K21.9 [place] [address] [id number] [address] [place] [phone] Aug, [place] [address] [facility] [id number] [address] [place] [phone] July, [place] [address] [facility] [id number] [address] [place] [id number] July, History of DVT (deep vein th rombosis) Z86.718 [place] [address] [facility] [id number] [address] [place] [phone] Jun, Generalized anxiety disorder F41.1 [place] [id number] [place] [phone] Jun, History of DVT (deep vein th rombosis) Z86.718 [facility] [address] [place] [id number] [address] [place] [phone] Jun, History of DVT (deep vein th rombosis) Z86.718 [facility] [address] [place] [id number] [address] [place] [phone] Jun, History of DVT (deep vein th rombosis) Z86.718 [place] [address] [place] [id number] [place] [address] Jun, History of DVT (deep vein th rombosis) Z86.718 [place] [address] [place] [id number] [address] [place] [phone] May, History of DVT (deep vein th rombosis) Z86.718 [place] [address] [place] [id number] [address] [place] [phone] May, care home (current) use of a nticoagulants Z79.01 [place] [address] [place] [id number] [address] [place] [phone] May, terminologist (current) use of a nticoagulants Z79.01 [place] [address] [place] [id number] [address] [place] [phone] May, History of DVT (deep vein th rombosis) Z86.718 [facility] [address] [place] [id number] [place] [phone] Apr, Bacterial conjunctivitis of left eye H10.9 and H/O motion sickness Z87.898 [facility] [address] [place] [id number] [address] [place] [id number] Apr, History of DVT (deep vein th rombosis) Z86.718 [facility] [address] [id number] [address] [place] [id number] 23 Apr, 2016 History of DVT (deep vein th rombosis) Z86.718 [facility] [address] [id number] [address] [place] [phone] 15 Apr, 2016 History of DVT (deep vein th rombosis) Z86.718 [facility] [address] [id number] [address] [place] [id number] 14 Apr, 2016 care home (current) use of a nticoagulants Z79.01 [facility] [address] [id number] [address] [place] [phone] Mar, [facility] [address] [id number] [address] [place] [phone] Mar, care home (current) use of a nticoagulants Z79.01 [facility] [address] [id number] [address] [place] [phone] Mar, Hypertriglyceridemia E78.1 a nd care home (current) use of anticoagulants Z79.01 [facility] [address] [id number] [address] [place] [phone] Feb, care home (current) use of a nticoagulants Z79.01 [facility] [address] [id number] [address] [place] [phone] Feb, care home (current) use of a nticoagulants Z79.01 [facility] [address] [id number] [address] [place] [phone] Feb, terminologist (current) use of a nticoagulants Z79.01 [facility] [address] [id number] [address] [place] [phone] Dec, [facility] [address] [id number] [address] [place] [phone] Nov, [place] [address] [id number] [address] [place] [address] Nov, History of DVT (deep vein th rombosis) Z86.718 ; Tremulousness R25.1 ; Generalized anxiety disorder F41.1 ; Peripheral edema R60.9 and Hypertriglyceridemia E78.1 [facility] [address] [id number] [address] [place] [phone] Oct, History of DVT (deep vein th rombosis) Z86.718 [facility] [address] [id number] [address] [place] [phone] Oct, [place] [address] [id number] [address] [place] [phone] Sep, History of DVT (deep vein th rombosis) Z86.718 [place] [address] [id number] [address] [place] [phone] Sep, terminologist (current) use of a nticoagulants Z79.01 [facility] [address] [facility] [id number] [address] [place] [phone] July, [place] [address] [id number] [address] [place] [phone] July, care home (current) use of a nticoagulants Z79.01 [place] [address] [facility] [id number] [address] [place] [phone] July, care home (current) use of a nticoagulants Z79.01 [facility] [address] [id number] [address] [place] [phone] Jun, terminologist (current) use of a nticoagulants Z79.[address] [facility] [address] [id number] [address] [place] [phone] Jun, Coccyx pain M53.3 ; Encounte r for therapeutic drug level monitoring Z51.81 and care home current use 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.01 [place] [address] [id number] [address] [place] [phone] May, Abnormal mammogram R92.8 [facility] [address] [facility] [id number] [address] [place] [phone] May, [facility] [address] [facility] [id number] [address] [place] [phone] May, Acute vaginitis N76.0 and En counter for other screening for malignant neoplasm of breast Z12.39 [facility] [address] [id number] [address] [place] [id number] Apr, [place] [address] [facility] [id number] [address] [place] [phone] Apr, [place] [address] [address] [facility] [id number] [address] [place] [phone] Apr, Peripheral edema R60.9 [place] [address] [address] [facility] [id number] [address] [place] [phone] Apr, care home (current) use of a nticoagulants Z79.01 [place] [address] [address] [facility] [id number] [address] [place] [phone] Apr, Peripheral edema R60.9 and L jose martin term (current) 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 Z79.01 [id number] N [facility] [id number] [address] [place] [phone] Apr, terminologist (current) use of a nticoagulants Z79.01 [place] [address] [id number] [address] [place] [phone] Apr, [place] [address] [address] [facility] [id number] [address] [place] [phone] Apr, terminologist (current) use of a nticoagulants Z79.01 [place] N [facility] [id number] [address] [place] [phone] Apr, Peripheral edema R60.9 [place] [address] [id number] [address] [place] [phone] Mar, terminologist (current) use of a nticoagulants Z79.01 [place] [address] [id number] [address] [place] [phone] Mar, care home (current) use of a nticoagulants Z79.01 and Hypertriglyceridemia E78.1 [place] [address] [id number] [address] [place] [phone] Mar, terminologist (current) use of a nticoagulants Z79.01 [place] [address] [id number] [address] [place] [phone] Mar, terminologist (current) use of a nticoagulants Z79.01 [place] [address] [address] [facility] [id number] [address] [place] [phone] Mar, [place] [address] [address] [facility] [id number] [address] [place] [phone] Mar, terminologist (current) use of a nticoagulants Z79.01 ; Hypertriglyceridemia E78.1 ; Personal history of venous thrombosis and embolism Z86.718 and Lump R22.9 [place] [address] [address] [facility] [id number] [address] [place] [phone] Mar, Personal history of venous t hrombosis and embolism Z86.718 [place] [address] [id number] [address] [place] [phone] Mar, Personal history of venous t hrombosis and embolism Z86.718 [place] [address] [id number] [address] [place] [phone] Mar, [place] [address] [address] [facility] [id number] [address] [place] [phone] Dec, Personal history of venous t hrombosis and embolism Z86.718 [place] [address] [id number] [address] [place] [phone] Dec, Personal history of venous t hrombosis and embolism V12.51 [facility] [address] [id number] [address] [place] [address] Nov, Personal history of venous t hrombosis and embolism V12.51 [facility] [address] [id number] [address] [place] [address] Nov, Personal history of venous t hrombosis and embolism V12.51 [facility] [address] [id number] [address] [place] [id number] 17 Nov, 2014 Personal history of venous t hrombosis and embolism V12.51 [facility] [address] [id number] [address] [place] [id number] Nov, Personal history of venous t hrombosis and embolism V12.51 [facility] [address] [id number] [address] [place] [id number] Nov, [facility] [address] [id number] [address] [place] [address] Oct, Dysuria 788.1 [facility] [address] [id number] [address] [place] [address] Oct, Personal history of venous t hrombosis and embolism V12.51 [facility] [address] [id number] [address] [place] [phone] Oct, [facility] [address] [id number] [address] [place] [id number] Oct, Personal history of venous t hrombosis and embolism V12.51 [facility] [address] [id number] [address] [place] [address] Sep, Personal history of venous t hrombosis and embolism V12.51 [facility] [address] [id number] [address] [place] [phone] Sep, Personal history of venous t hrombosis and embolism V12.51 [facility] [address] [id number] [address] [place] [id number] 19 Aug, 2014 Personal history of venous t hrombosis and embolism V12.51 [facility] [address] [id number] [address] [place] [id number] 18 Aug, 2014 Personal history of venous t hrombosis and embolism V12.51 [facility] [address] [id number] [address] [place] [id number] 15 Aug, 2014 Personal history of venous t hrombosis and embolism V12.51 [facility] [address] [id number] [address] [place] [address] July, Generalized anxiety disorder 300.02 ; Abdominal pain, left lower quadrant 789.04 and Personal history of venous thrombosis and embolism V12.51 [facility] [address] [id number] [address] [place] [id number] 14 Jun, 2014 [facility] [address] [id number] [address] [place] [id number] Jun, [facility] [address] [id number] [address] [place] [address] May, [facility] [address] [id number] [address] [place] [id number] 27 May, 2014 [facility] [address] [id number] [address] [place] [id number] 17 May, 2014 [facility] [address] [id number] [address] [place] [id number] 17 May, 2014 [facility] [address] [id number] [address] [place] [phone] May, [facility] [address] [id number] [address] [place] [phone] May, [facility] [address] [id number] [address] [place] [id number] 04 May, 2014 [facility] [address] [id number] [address] [place] [id number] May, [facility] [address] [id number] [address] [place] [address], [place] [address] Apr, [facility] [address] [id number] [address] [place] [address], [place] [address] Apr, [facility] [address] [id number] [address] [place] [address], [place] [address] Apr, [facility] [address] [id number] [address] [place] [address], [place] [address] Apr, [facility] [address] [id number] [address] [place] [address], [place] [address] Apr, [facility] [address] [id number] [address] [place] [address], [place] [address] Mar, [facility] [address] [id number] [address] [place] [address], [place] [address] Mar, [facility] [address] [id number] [address] [place] [address], [place] [address] Mar, [facility] [address] [id number] [address] [place] [address], [place] [address] Mar, [facility] [address] [id number] [address] [place] [address], [place] [address] Mar, [facility] [address] [id number] [address] [place] [address], [place] [address] Mar, [facility] [address] [id number] [address] [place] [address], [place] [address] Feb, [facility] [address] [id number] [address] [place] [address], [place] [address] Feb, [facility] [address] [id number] [address] [place] [address], [place] [address] Feb, [facility] [address] [id number] [address] [place] [address], [place] [address] Feb, [facility] [address] [id number] [address] [place] [address], [place] [address] Feb, [facility] [address] [id number] [address] [place] [address], [place] [address] Feb, [facility] [address] [id number] [address] [place] [address], [place] [address] Feb, [facility] [address] [id number] [address] [place] [address], [place] [address] Feb, [facility] [address] [id number] [address] [place] [address], [place] [address] Feb, [facility] [address] [id number] [address] [place] [address], [place] [address] Feb, [facility] [address] [id number] [address] [place] [address], [place] [address] Jan, [facility] [address] [id number] [address] [place] [address], [place] [address] Jan, [facility] [address] [id number] [address] [place] [address], [place] [address] Jan, [facility] [address] [id number] [address] [place] [address], [place] [address] Jan, [facility] [address] [id number] [address] [place] [address], [place] [address] Jan, [facility] [address] [id number] [address] [place] [address], [place] [address] Jan, [facility] [address] [id number] [address] [place] [address], [place] [address] Jan, [facility] [address] [id number] [address] [place] [address], [place] [address] Jan, [facility] [address] [id number] [address] [place] [address], [place] [address] Jan, [facility] [address] [id number] [address] [place] [address], [place] [address] Jan, [facility] [address] [id number] [address] [place] [address], [place] [address] Dec, [facility] [address] [id number] [address] [place] [address], [place] [address] Dec, [facility] [address] [id number] [address] [place] [address], [place] [address] Dec, [facility] [address] [id number] [address] [place] [address], [place] [address] Dec, [facility] [address] [id number] [address] [place] [address], [place] [address] Dec, [facility] [address] [id number] [address] [place] [address], [place] [address] Dec, [facility] [address] [id number] [address] [place] [address], [place] [address] Dec, [facility] [address] [id number] [address] [place] [address] Dec, [facility] [address] [id number] [address] [place] [address], [place] [address] Dec, [facility] [address] [id number] [address] [place] [address] Dec, [facility] [address] [id number] [address] [place] [address] Dec, [facility] [address] [id number] [address] [place] [address] Dec, [facility] [address] [id number] [address] [place] [address], [place] [address] Dec, [facility] [address] [id number] [address] [place] [id number] Dec, [facility] [address] [id number] [address] [place] [address] Dec, [facility] [address] [id number] [facility] [address] 30 Sep, 2013 [facility] [address] [id number] [address] [place] [address], [place] [address] 30 Sep, 2013 [facility] [address] [id number] [facility] [place] [address] 26 Sep, 2013 [facility] [address] [id number] [address] [place] [address], [place] [address] 26 Sep, 2013 [facility] [address] [id number] [address] [place] [address], [place] [address] 24 Sep, 2013 [facility] [address] [id number] [address] [place] [address], [place] [address] 24 Sep, 2013 [facility] [address] [id number] [address] [place] [address], [place] [address] 23 Sep, 2013 [facility] [address] [id number] [address] [place] [address], [place] [address] 23 Sep, 2013 [facility] [address] [id number] [address] [place] [address], [place] [address] 18 Sep, 2013 [facility] [address] [id number] [address] [place] [address], [place] [address] 18 Sep, 2013 [facility] [address] [id number] [address] [place] [address], [place] [address] 17 Sep, 2013 [facility] [address] [id number] [address] [place] [address], [place] [address] 17 Sep, 2013 [facility] [address] [id number] [address] [place] [address], [place] [address] 11 Sep, 2013 [facility] [address] [id number] [address] [place] [address], [place] [address] 11 Sep, 2013 [facility] [address] [id number] [address] [place] [address], [place] [address] 10 Sep, 2013 [facility] [address] [id number] [address] [place] [address], [place] [address] 10 Sep, 2013 [facility] [address] [id number] [address] [place] [address], [place] [address] 08 Nov, 2013 [facility] [address] [id number] [address] [place] [address], [place] [address] Nov, [facility] [address] [id number] [address] [place] [address], [place] [address] Sep, [facility] [address] [id number] [address] [place] [address], [place] [address] Sep, [facility] [address] [id number] [address] [place] [address], [place] [address] Sep, [facility] [address] [id number] [address] [place] [address], [place] [address] Sep, [facility] [address] [id number] [address] [place] [address], [place] [address] Sep, [facility] [address] [id number] [address] [place] [address], [place] [address] Sep, [facility] [address] [id number] [address] [place] [address], [place] [address] Aug, [facility] [address] [id number] [address] [place] [address], [place] [address] Aug, [facility] [address] [id number] [address] [place] [address], [place] [address] Aug, [facility] [address] [id number] [address] [place] [address], [place] [address] Aug, [facility] [address] [id number] [address] [place] [address], [place] [address] 24 Aug, 2013 [facility] [address] [id number] [address] [place] [address], [place] [address] Aug, [facility] [address] [id number] [address] [place] [address], [place] [address] Aug, [facility] [address] [id number] [address] [place] [address], [place] [address] Aug, [facility] [address] [id number] [address] [place] [address], [place] [address] Aug, [facility] [address] [id number] [address] [place] [address], [place] [address] Aug, [facility] [address] [id number] [address] [place] [address], [place] [address] Aug, [facility] [address] [id number] [address] [place] [address], [place] [address] July, [facility] [address] [id number] [address] [place] [address], [place] [address] July, [facility] [address] [id number] [address] [place] [address], [place] [address] Jun, [facility] [address] [id number] [address] [place] [address], [place] [address] Jun, [facility] [address] [id number] [address] [place] [address], [place] [address] Jun, [facility] [address] [id number] [address] [place] [address], [place] [address] Jun, [facility] [address] [id number] [address] [place] [address], [place] [address] Jun, [facility] [address] [id number] [address] [place] [address], [place] [address] Jun, [facility] [address] [id number] [address] [place] [address], [place] [address] Jun, [facility] [address] [id number] [address] [place] [address], [place] [address] Jun, [facility] [address] [id number] [address] [place] [address], [place] [address] Jun, [facility] [address] [id number] [address] [place] [address], [place] [address] Jun, [facility] [address] [id number] [facility] [place] [address] 10 Jun, 2013 [facility] [address] [id number] [facility] [place] [address] Jun, [facility] [address] [id number] [facility] [place] [address] May, [facility] [address] [id number] [facility] [place] [address] May, [facility] [address] [id number] [facility] [place] [address] May, [facility] [address] [id number] [address] [place] [address], [place] [address] May, [facility] [address] [id number] [address] [place] [address], [place] [address] May, [facility] [address] [id number] [address] [place] [address], [place] [address] May, [facility] [address] [id number] [address] [place] [address], [place] [address] May, [facility] [address] [id number] [address] [place] [address], [place] [address] May, [facility] [address] [id number] [address] [place] [address], [place] [address] May, [facility] [address] [id number] [address] [place] [address], [place] [address] May, [facility] [address] [id number] [address] [place] [address], [place] [address] May, [facility] [address] [id number] [address] [place] [address], [place] [address] May, [facility] [address] [id number] [address] [place] [address], [place] [address] Apr, [facility] [address] [id number] [address] [place] [address], [place] [address] Apr, [facility] [address] [id number] [address] [place] [address], [place] [address] Apr, [facility] [address] [id number] [address] [place] [address], [place] [address] Apr, [facility] [address] [id number] [address] [place] [address], [place] [address] Apr, [facility] [address] [id number] [address] [place] [address], [place] [address] Apr, [facility] [address] [id number] [address] [place] [address], [place] [address] Apr, [facility] [address] [id number] [address] [place] [address], [place] [address] Apr, [facility] [address] [id number] [address] [place] [address], [place] [address] Apr, [facility] [address] [id number] [address] [place] [address], [place] [address] Apr, [facility] [address] [id number] [address] [place] [address], [place] [address] Apr, [facility] [address] [id number] [address] [place] [address], [place] [address] Apr, [facility] [address] [id number] [address] [place] [address], [place] [address] Apr, [facility] [address] [id number] [address] [place] [address], [place] [address] Apr, [facility] [address] [id number] [address] [place] [address], [place] [address] Apr, [facility] [address] [id number] [address] [place] [address], [place] [address] Apr, [facility] [address] [id number] [address] [place] [address], [place] [address] Apr, [facility] [address] [id number] [address] [place] [address], [place] [address] Jan, [facility] [address] [id number] [address] [place] [address], [place] [address] Jan, [facility] [address] [id number] [address] [place] [address], [place] [address] Jan, [facility] [address] [id number] [address] [place] [address], [place] [address] Jan, [facility] [address] [id number] [address] [place] [address], [place] [address] Jan, [facility] [address] [id number] [address] [place] [address], [place] [address] Jan, [facility] [address] [id number] [address] [place] [address], [place] [address] Jan, [facility] [address] [id number] [address] [place] [address], [place] [address] Dec, [facility] [address] [id number] [address] [place] [address], [place] [address] Dec, [facility] [address] [id number] [address] [place] [address], [place] [address] Dec, [facility] [address] [id number] [address] [place] [address], [place] [address] Nov, [facility] [address] [id number] [address] [place] [address] 10 Nov, 2012 [facility] [address] [id number] [address] [place] [address], [place] [address] 05 Nov, 2012 [facility] [address] [id number] [address] [place] [address], [place] [address] 04 Nov, 2012 [facility] [address] [id number] [address] [place] [address], [place] [address] Oct, [facility] [address] [id number] [address] [place] [address] Oct, [facility] [address] [id number] [address] [place] [address], [place] [address] Oct, [facility] [address] [id number] [address] [place] [address], [place] [address] Oct, [facility] [address] [id number] [address] [place] [address], [place] [address] Oct, [facility] [address] [id number] [address] [place] [address], [place] [address] Sep, [facility] [address] [id number] [address] [place] [address], [place] [address] Sep, [facility] [address] [id number] [address] [place] [address], [place] [address] Sep, [facility] [address] [id number] [address] [place] [address], [place] [address] Sep, [facility] [address] [id number] [address] [place] [address], [place] [address] Sep, [facility] [address] [id number] [address] [place] [address], [place] [address] Sep, [facility] [address] [id number] [address] [place] [address], [place] [address] Sep, [facility] [address] [id number] [address] [place] [address], [place] [address] Aug, [facility] [address] [id number] [address] [place] [address], [place] [address] Aug, [facility] [address] [id number] [address] [place] [address], [place] [address] July, [facility] [address] [id number] [address] [place] [address], [place] [address] 30 Jun, 2012 [facility] [address] [id number] [address] [place] [address], [place] [address] Jun, [facility] [address] [id number] [address] [place] [address], [place] [address] Jun, [facility] [address] [id number] [address] [place] [address], [place] [address] Apr, [facility] [address] [id number] [address] [place] [address], [place] [address] Apr, [facility] [address] [id number] [address] [place] [address], [place] [address] Apr, [facility] [address] [id number] [address] [place] [address], [place] [address] Mar, [facility] [address] [id number] [address] [place] [address], [place] [address] Mar, [facility] [address] [id number] [address] [place] [address], [place] [address] Mar, [facility] [address] [id number] [address] [place] [address], [place] [address] Mar, [facility] [address] [id number] [address] [place] [address], [place] [address] Mar, [facility] [address] [id number] [address] [place] [address], [place] [address] 14 Feb, 2012 [facility] [address] [id number] [address] [place] [address], [place] [address] 14 Feb, 2012 [facility] [address] [id number] [address] [place] [address], [place] [address] 13 Jan, 2012 [facility] [address] [id number] [address] [place] [address], [place] [address] 13 Jan, 2012 [facility] [address] [id number] [address] [place] [address], [place] [address] 13 Jan, 2012 [facility] [address] [id number] [address] [place] [address], [place] [address] 13 Jan, 2012 [facility] [address] [id number] [address] [place] [address], [place] [address] Jan, [facility] [facility] [address] [id number] [address] [place] [address], [place] [address] Jan, [facility] [address] [id number] [address] [place] [address], [place] [address] Jan, [facility] [address] [id number] [address] [place] [address], [place] [address] Dec, [facility] [address] [id number] [address] [place] [address], [place] [address] Dec, [facility] [address] [id number] [address] [place] [address], [place] [address] Dec, [facility] [address] [id number] [address] [place] [address], [place] [address] Dec, [facility] [address] [id number] [address] [place] [address], [place] [address] Dec, [facility] [address] [id number] [address] [place] [address], [place] [address] Dec, [facility] [address] [id number] [address] [place] [address], [place] [address] Dec, [facility] [address] [id number] [address] [place] [phone] Dec, [facility] [address] [id number] [address] [place] [phone] Dec, [facility] [address] [id number] [address] [place] [phone] Dec, [facility] [address] [id number] [address] [place] [address], [place] [address] Oct, [facility] [address] [id number] [address] [place] [phone] Oct, [facility] [address] [id number] [address] [place] [address], [place] [address] Aug, [facility] [address] [id number] [address] [place] [address], [place] [address] 14 Aug, 2011 [facility] [address] [id number] [address] [place] [address], [place] [address] 09 Jul, 2011 [facility] [address] [id number] [address] [place] [address], [place] [address] 17 Jun, 2011 [facility] [address] [id number] [address] [place] [address], [place] [address] Jun, [facility] [address] [id number] [address] [place] [address], [place] [address] May, [facility] [address] [id number] [address] [place] [address], [place] [address] 22 Apr, 2011 [facility] [address] [id number] [address] [place] [address], [place] [address] 16 Apr, 2011 [facility] [address] [id number] [address] [place] [address], [place] [address] Mar, [facility] [address] [id number] [address] [place] [address], [place] [address] 16 Mar, 2011 [facility] [address] [id number] [address] [place] [address], [place] [address] 19 Feb, 2011 [facility] [address] [id number] [address] [place] [address], [place] [address] 15 Feb, 2011 [facility] [address] [id number] [address] [place] [address], [place] [address] 13 Feb, 2011 [facility] [address] [id number] [address] [place] [address], [place] [address] 13 Feb, 2011 [facility] [address] [id number] [address] [place] [address], [place] [address] 11 Jan, 2011 [facility] [address] [id number] [address] [place] [address], [place] [address] 17 Dec, 2010 [facility] [address] [id number] [address] [place] [address], [place] [address] Feb, [facility] [address] [id number] [address] [place] [id number] Feb, [facility] [address] [id number] [address] [place] [id number] Feb, [facility] [address] [id number] [address] [place] [phone] Feb, [facility] [address] [id number] [address] [place] [phone] Dec, [facility] [address] [id number] [address] [place] [id number] Dec, [facility] [address] [id number] [address] [place] [phone] Oct, [facility] [address] [id number] [address] [place] [id number] Jun, [facility] [address] [id number] [address] [place] [phone] Feb, [facility] [address] [id number] [address] [place] [phone] Feb, [facility] [address] [id number] [address] [place] [phone] Feb, [facility] [address] [id number] [address] [place] [phone] Dec, IMMUNIZATIONS No Known Immunizations SOCIAL HISTORY Never Assessed REASON FOR VISIT PLAN OF CARE VITAL SIGNS Height 64 in 2013-09-22 Weight 191.1 lbs 2013-09-22 Temperature 98 degrees Fahrenheit 2013-09-22 Heart Rate 78 bpm 2013-09-22 Respiratory Rate 20 2013-09-22 Blood pressure systolic 118 mmHg 2013-09-22 Blood pressure diastolic 70 mmHg 2013-09-22 MEDICATIONS No Known Medications RESULTS No Results PROCEDURES Procedure Date Ordered Result Body Site CT ABD&PELV 1+ SECTION/REGNS September 22, 2013 PROTHROMBIN TIME September 22, 2013 VENIPUNCT, ROUTINE* September 22, 2013 INSTRUCTIONS MEDICATIONS ADMINISTERED No Known Medications MEDICAL (GENERAL) HISTORY Type Description Date Medical History obesity Medical History Hematologic disorder factor clotting pro [place] Medical History DVT's Medical History Torn Rotator Cuff, repaired 09/23/17 Surgical History Lap Band 10/2012 Surgical History section 1985, 1987 Surgical History cholecystectomy Surgical History [place] Filter 06/2009 Surgical History Left leg exploratory surgery r/t clot Surgical History left shoulder surgery 09/14/17 Surgical History lap band removed 12/2017 Surgical History gastic sleeve 01/2018 Surgical History Back surgery 2018 Hospitalization History Ruptured Ovarian Cyst with abd bleed ing 11/2009 Hospitalization History Broken Back 06/2018
--- OUTSIDE RECORDS SUMMARY | 2019-10-19 12:27 | XMS REPORT ---
Author Author Mary Jane Das Organization [facility] Address [address] [place] [address] Care Team Providers Care Superintendent Stations Name Role Phone LOVE Das Unavailable PROBLEMS Type Condition ICD9-CM Code UFF02-QE Code Onset Dates Condition S tatus SNOMED Code Problem Thyroid follicular adenoma D34 Act phylicia 790796254 Problem History of DVT (deep vein thrombosis) Z86.718 Active 807703376 Problem Factor V Leiden D68.51 Active 3070 22774 Problem nursing home (current) use of anticoagulants Z79.01 Active 852779987 Problem Hypertriglyceridemia E78.1 Active 882741931 Problem 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 Active 926332786 Problem Pelvic pain R10.2 Active 02775649 Problem Peripheral edema R60.9 Active 271 300089 Problem Moderate episode of recurrent major depressive disorder F33.1 Active 755821481 Problem Presence of IVC filter Z95.828 Active 791711859 Problem Vitamin D deficiency E55.9 Active 04289933 Problem Generalized anxiety disorder F41.1 A ctive 268955455 Problem Excessive daytime sleepiness G47.19 A ctive [id number] Problem Gastroesophageal reflux disease, esophagitis pre sence not specified K21.9 Active 489297797 Problem Thyroid nodule E04.1 Active 70771 5005 Problem Morbid obesity E66.01 Active 31308 6002 ALLERGIES No Information ENCOUNTERS Encounter Location Date Diagnosis [facility] [address] [facility] [id number] [address] [place] [phone] Dec, [facility] [address] [facility] [id number] [address] [place] [phone] Nov, Encounter for weight managem ent Z76.89 [facility] [address] [facility] [id number] [address] [place] [phone] Nov, Thyroid nodule E04.1 [facility] [address] [facility] [id number] [address] [place] [phone] Nov, Thyroid nodule E04.1 [facility] [address] [facility] [id number] [address] [place] [phone] Nov, Thyroid nodule E04.1 [facility] [address] [facility] [id number] [address] [place] [phone] Oct, Syncope, unspecified syncope type R55 and Encounter for weight management Z76.89 [facility] [address] [facility] [id number] [address] [place] [phone] Oct, Morbid obesity E66.01 [facility] [address] [facility] [id number] [address] [place] [address] Oct, Hypertriglyceridemia E78.1 [facility] [address] [facility] [id number] [address] [place] [phone] Oct, [facility] [address] [facility] [id number] [address] [place] [address] Oct, Hypertriglyceridemia E78.1 [facility] [address] [facility] [id number] [address] [place] [phone] Sep, Hypertriglyceridemia E78.1 a nd Vitamin D deficiency E55.9 [facility] [address] [facility] [id number] [address] [place] [phone] Sep, [facility] [address] [facility] [id number] [address] [place] [address] Sep, Morbid obesity E66.01 ; Mode rate episode of recurrent major depressive disorder F33.1 ; Hypertriglyceridemia E78.1 and Vitamin D deficiency E55.9 [facility] [address] [facility] [id number] [address] [place] [phone] Aug, [facility] [address] [facility] [id number] [address] [place] [phone] July, [facility] [address] [id number] [address] [place] [phone] July, [facility] [address] [id number] [address] [place] [phone] Jun, [facility] [address] [facility] [id number] [address] [place] [phone] Jun, [facility] [address] [facility] [id number] [address] [place] [phone] Jun, Closed compression fracture of L3 lumbar vertebra with routine healing, subsequent encounter S32.030D and Drug-induced constipation K59.03 [facility] [address] [id number] [address] [place] [phone] Jun, [facility] [address] [facility] [id number] [address] [place] [phone] Jun, [facility] [address] [facility] [id number] [address] [place] [address] Apr, [facility] [address] [place] [id number] [address] [place] [address] Apr, Morbid obesity E66.01 [facility] [address] [place] [id number] [place] [address] Apr, Morbid obesity E66.01 ; Hype rtriglyceridemia E78.1 ; Gastroesophageal reflux disease, esophagitis presence not specified K21.9 and Joint pain M25.50 [facility] [address] [facility] [id number] [address] [place] [phone] Feb, [facility] [address] [facility] [id number] [address] [place] [phone] Feb, [facility] [address] [facility] [id number] [address] [place] [phone] Jan, Acute bacterial conjunctivit is H10.30 [facility] [address] [facility] [id number] [address] [place] [address] Dec, [facility] [address] [place] [id number] [place] [address], [place] [address] 04 Dec, 2017 [facility] [address] [facility] [id number] [address] [place] [phone] 17 Nov, 2017 [facility] [address] [place] [id number] [place] [address] 07 Nov, 2017 Obstructive sleep apnea G47. 33 ; Morbid obesity E66.01 and Gastroesophageal reflux disease, esophagitis presence not specified K21.9 [facility] [address] [facility] [id number] [address] [place] [id number] 06 Nov, 2017 Encounter for examination of eyes and vision without abnormal findings Z01.00 [facility] [address] [place] [id number] [place] [phone] 31 Oct, 2017 Thyroid nodule E04.1 and Scr eening for breast cancer Z12.31 [facility] [address] [place] [id number] [place] [phone] 23 Oct, 2017 History of DVT (deep vein th rombosis) Z86.718 ; Thyroid nodule E04.1 and Gastroesophageal reflux disease, esophagitis presence not specified K21.9 [facility] [address] [address] Oct, [facility] [address] [place] [id number] [place] [address] Sep, [facility] [address] [address] Aug, [facility] [address] [place] [id number] [place] [address] Aug, [facility] [address] [place] [id number] [place] [address] Aug, Acute pain of left shoulder M25.512 and Thyroid nodule E04.1 [facility] [address] [place] [id number] [address] [place] [address] July, Superior glenoid labrum lesi on of left shoulder, subsequent encounter S43.432D [place] [address] [facility] [id number] [address] [place] [address] Jun, History of DVT (deep vein th rombosis) Z86.718 [place] [address] [facility] [id number] [address] [place] [phone] Jun, History of DVT (deep vein th rombosis) Z86.718 [place] [address] [place] [id number] [address] [place] [address] Jun, Impingement syndrome, should er, left M75.42 [place] [address] [place] [id number] [address] [place] [phone] May, Subacromial bursitis of left shoulder joint M75.52 [place] [address] [place] [id number] [address] [place] [phone] May, [place] [address] [place] [id number] [place] [address] May, Hypertriglyceridemia E78.1 ; nursing home (current) use of anticoagulants Z79.01 and Excessive daytime sleepiness G47.19 [place] [address] [place] [id number] [address] [place] [phone] May, History of DVT (deep vein th rombosis) Z86.718 ; Generalized anxiety disorder F41.1 ; Hypertriglyceridemia E78.1 ; nursing home (current) use of anticoagulants Z79.01 ; Subacromial bursitis of left shoulder joint M75.52 and Excessive daytime sleepiness G47.19 [place] [address] [facility] [id number] [address] [place] [phone] May, [place] [address] [facility] [id number] [address] [place] [id number] May, nursing home (current) use of a nticoagulants Z79.01 [place] [address] [facility] [id number] [address] [place] [address] Apr, 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 (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 nticoagulants Z79.01 [facility] [address] [id number] [address] [place] [address] Apr, 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 (current) use of a nticoagulants Z79.01 [facility] [address] [id number] [address] [place] [id number] 20 Apr, 2017 nursing home (current) use of a nticoagulants Z79.01 [facility] [address] [id number] [address] [place] [phone] Apr, [facility] [address] [id number] [address] [place] [address] Apr, nursing home (current) use of a nticoagulants Z79.01 [facility] [address] [id number] [address] [place] [phone] 13 Apr, 2017 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 (current) use of a nticoagulants Z79.01 [facility] [address] [id number] [address] [place] [phone] Apr, nursing home (current) use of a nticoagulants Z79.01 [facility] [address] [id number] [address] [place] [address] Apr, nursing home (current) use of a nticoagulants Z79.01 [facility] [address] [id number] [address] [place] [address] Apr, 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 (current) use of a nticoagulants Z79.01 [facility] [address] [id number] [address] [place] [phone] Apr, 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 (current) use of a nticoagulants Z79.01 [facility] [address] [id number] [address] [place] [address] Mar, nursing home (current) use of a nticoagulants Z79.01 [facility] [address] [id number] [address] [place] [phone] Mar, [facility] [address] [id number] [address] [place] [phone] Mar, nursing home (current) use of a nticoagulants Z79.01 [facility] [address] [id number] [address] [place] [id number] Jan, Dental examination Z01.20 [facility] [address] [id number] [address] [place] [id number] Jan, [facility] [address] [id number] [address] [place] [address] Jan, nursing home (current) use of a nticoagulants Z79.01 [facility] [address] [id number] [address] [place] [id number] Jan, History of DVT (deep vein th rombosis) Z86.718 [facility] [address] [id number] [address] [place] [address] Jan, Generalized anxiety disorder F41.1 and Peripheral edema R60.9 [facility] [address] [id number] [address] [place] [address] Nov, History of DVT (deep vein th rombosis) Z86.718 [facility] [address] [id number] [address] [place] [phone] Nov, nursing home (current) use of a nticoagulants Z79.01 [facility] [address] [id number] [address] [place] [address] Nov, Acute non-recurrent maxillar y sinusitis J01.00 [facility] [address] [id number] [address] [place] [phone] Oct, 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 (current) use of a nticoagulants Z79.01 [facility] [address] [facility] [id number] [address] [place] [address] Oct, Personal history of venous t hrombosis and embolism Z86.718 [place] [address] [facility] [id number] [address] [place] [address] Sep, [place] [address] [facility] [id number] [address] [place] [address] Sep, Personal history of venous t hrombosis and embolism Z86.718 [place] [address] [facility] [id number] [address] [place] [address] Sep, 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 (current) use of a nticoagulants Z79.01 [place] [address] [facility] [id number] [address] [place] [address] Sep, nursing home (current) use of a nticoagulants Z79.01 [place] [address] [place] [id number] [address] [place] [address] Sep, Generalized anxiety disorder F41.1 and History of DVT (deep vein thrombosis) Z86.718 [place] [address] [place] [id number] [address] [place] [phone] Aug, History of DVT (deep vein th rombosis) Z86.718 ; Generalized anxiety disorder F41.1 ; 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 (current) use of anticoagulants Z79.01 ; Pelvic pain R10.2 ; Hypertriglyceridemia E78.1 ; Excessive daytime sleepiness G47.19 ; Colon cancer screening Z12.11 ; Screening for breast cancer Z12.39 ; Peripheral edema R60.9 and Gastroesophageal reflux disease, esophagitis presence not specified K21.9 [place] [address] [facility] [id number] [address] [place] [phone] Aug, [place] [address] [place] [id number] [address] [place] [phone] July, [place] [address] [place] [id number] [place] [address] July, History of DVT (deep vein th rombosis) Z86.718 [place] [address] [place] [id number] [address] [place] [id number] Jun, Generalized anxiety disorder F41.1 [facility] [address] [facility] [id number] [address] [place] [id number] Jun, History of DVT (deep vein th rombosis) Z86.718 [facility] [address] [facility] [id number] [address] [place] [phone] Jun, History of DVT (deep vein th rombosis) Z86.718 [place] [address] [facility] [id number] [address] [place] [address] Jun, History of DVT (deep vein th rombosis) Z86.718 [place] [address] [facility] [id number] [address] [place] [address] Jun, History of DVT (deep vein th rombosis) Z86.718 [place] [address] [facility] [id number] [address] [place] [address] May, History of DVT (deep vein th rombosis) Z86.718 [place] [address] [facility] [id number] [address] [place] [phone] May, 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 (current) use of a nticoagulants Z79.01 [place] [address] [place] [id number] [address] [place] [address] May, nursing home (current) use of a nticoagulants Z79.01 [place] [address] [place] [id number] [address] [place] [address] May, History of DVT (deep vein th rombosis) Z86.718 [facility] [address] [facility] [id number] [address] [place] [address] Apr, Bacterial conjunctivitis of left eye H10.9 and H/O motion sickness Z87.898 [facility] [address] [facility] [id number] [address] [place] [address] Apr, History of DVT (deep vein th rombosis) Z86.718 [facility] [address] [id number] [address] [place] [phone] 23 Apr, 2016 History of DVT (deep vein th rombosis) Z86.718 [facility] [address] [id number] [address] [place] [id number] 15 Apr, 2016 History of DVT (deep vein th rombosis) Z86.718 [facility] [address] [id number] [address] [place] [phone] 14 Apr, 2016 nursing home (current) use of a nticoagulants Z79.01 [facility] [address] [id number] [address] [place] [phone] Mar, [facility] [address] [id number] [address] [place] [phone] Mar, 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 (current) use of a nticoagulants Z79.01 [facility] [address] [id number] [address] [place] [address] Mar, Hypertriglyceridemia E78.1 a nd nursing home (current) use of anticoagulants Z79.01 [facility] [address] [id number] [address] [place] [address] Feb, nursing home (current) use of a nticoagulants Z79.01 [facility] [address] [id number] [address] [place] [address] Feb, nursing home (current) use of a nticoagulants Z79.01 [facility] [address] [id number] [address] [place] [address] Feb, nursing home (current) use of a nticoagulants Z79.01 [facility] [address] [id number] [address] [place] [address] Dec, [facility] [address] [id number] [address] [place] [address] Nov, [facility] [address] [place] [id number] [address] [place] [address] Nov, History of DVT (deep vein th rombosis) Z86.718 ; Tremulousness R25.1 ; Generalized anxiety disorder F41.1 ; Peripheral edema R60.9 and Hypertriglyceridemia E78.1 [facility] [address] [facility] [id number] [address] [place] [address] Oct, History of DVT (deep vein th rombosis) Z86.718 [facility] [address] [place] [id number] [address] [place] [phone] Oct, [place] [address] [place] [id number] [place] [phone] Sep, History of DVT (deep vein th rombosis) Z86.718 [place] [address] [place] [id number] [address] [place] [address] Sep, 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 (current) use of a nticoagulants Z79.01 [facility] [address] [place] [id number] [address] [place] [phone] July, [place] [address] [place] [id number] [place] [address] July, 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 (current) use of a nticoagulants Z79.01 [place] [address] [place] [id number] [address] [place] [phone] July, 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 (current) use of a nticoagulants Z79.01 [facility] [address] [place] [id number] [address] [place] [address] Jun, nursing home (current) use of a nticoagulants Z79.01 [facility] [address] [facility] [id number] [address] [place] [phone] Jun, Coccyx pain M53.3 ; Encounte r for therapeutic drug level monitoring Z51.81 and nursing home current use 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.01 [place] [address] [place] [id number] [address] [place] [phone] May, Abnormal mammogram R92.8 [facility] [address] [id number] [address] [place] [phone] May, [facility] [address] [facility] [id number] [address] [place] [phone] May, Acute vaginitis N76.0 and En counter for other screening for malignant neoplasm of breast Z12.39 [facility] [address] [id number] [address] [place] [phone] Apr, [facility] [address] [id number] [address] [place] [phone] Apr, [place] [address] [facility] [id number] [address] [place] [phone] Apr, Peripheral edema R60.9 [place] [address] [facility] [id number] [address] [place] [id number] Apr, 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 (current) use of a nticoagulants Z79.01 [facility] [address] [id number] [address] [place] [id number] Apr, Peripheral edema R60.9 and L jose martin term (current) 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 Z79.01 [facility] [address] [id number] [address] [place] [address] Apr, 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 (current) use of a nticoagulants Z79.01 [facility] [address] [id number] [address] [place] [id number] Apr, [facility] [address] [id number] [address] [place] [id number] Apr, 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 (current) use of a nticoagulants Z79.01 [place] [id number] [id number] [address] [place] [id number] Apr, Peripheral edema R60.9 [facility] [address] [id number] [address] [place] [id number] Mar, 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 (current) use of a nticoagulants Z79.01 [place] [address] [id number] [address] [place] [id number] Mar, 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 (current) use of a nticoagulants Z79.01 and Hypertriglyceridemia E78.1 [place] [address] [id number] [address] [place] [id number] Mar, nursing home (current) use of a nticoagulants Z79.01 [place] [address] [id number] [address] [place] [id number] Mar, nursing home (current) use of a nticoagulants Z79.01 [facility] [address] [id number] [address] [place] [id number] Mar, [facility] [address] [id number] [address] [place] [address] Mar, 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 (current) use of a nticoagulants Z79.01 ; Hypertriglyceridemia E78.1 ; Personal history of venous thrombosis and embolism Z86.718 and Lump R22.9 [facility] [address] [id number] [address] [place] [address] Mar, Personal history of venous t hrombosis and embolism Z86.718 [facility] [address] [id number] [address] [place] [id number] Mar, Personal history of venous t hrombosis and embolism Z86.718 [facility] [address] [id number] [address] [place] [address] Mar, [facility] [address] [id number] [address] [place] [address] Dec, Personal history of venous t hrombosis and embolism Z86.718 [facility] [address] [id number] [address] [place] [address] Dec, Personal history of venous t hrombosis and embolism V12.51 [facility] [address] [id number] [address] [place] [id number] Nov, Personal history of venous t hrombosis and embolism V12.51 [facility] [address] [id number] [address] [place] [phone] Nov, Personal history of venous t hrombosis and embolism V12.51 [facility] [address] [id number] [address] [place] [address] Nov, Personal history of venous t hrombosis and embolism V12.51 [facility] [address] [id number] [address] [place] [address] Nov, Personal history of venous t hrombosis and embolism V12.51 [facility] [address] [id number] [address] [place] [address] Nov, [facility] [address] [id number] [address] [place] [address] Oct, Dysuria 788.1 [facility] [address] [id number] [address] [place] [phone] Oct, Personal history of venous t hrombosis and embolism V12.51 [facility] [address] [id number] [address] [place] [address] Oct, [facility] [address] [id number] [address] [place] [id number] Oct, Personal history of venous t hrombosis and embolism V12.51 [facility] [address] [id number] [address] [place] [address] Sep, Personal history of venous t hrombosis and embolism V12.51 [facility] [address] [id number] [address] [place] [address] Sep, Personal history of venous t hrombosis and embolism V12.51 [facility] [address] [id number] [address] [place] [id number] 19 Aug, 2014 Personal history of venous t hrombosis and embolism V12.51 [facility] [address] [id number] [address] [place] [id number] 18 Aug, 2014 Personal history of venous t hrombosis and embolism V12.51 [facility] [address] [id number] [address] [place] [id number] 15 Aug, 2014 Personal history of venous t hrombosis and embolism V12.51 [facility] [address] [id number] [address] [place] [address] July, Generalized anxiety disorder 300.02 ; Abdominal pain, left lower quadrant 789.04 and Personal history of venous thrombosis and embolism V12.51 [facility] [address] [id number] [address] [place] [id number] 14 Jun, 2014 [facility] [address] [id number] [address] [place] [phone] Jun, [facility] [address] [id number] [address] [place] [address] May, [facility] [address] [id number] [address] [place] [phone] May, [facility] [address] [id number] [address] [place] [address] May, [facility] [address] [id number] [address] [place] [id number] 17 May, 2014 [facility] [address] [id number] [address] [place] [phone] May, [facility] [address] [id number] [address] [place] [phone] May, [facility] [address] [id number] [address] [place] [phone] May, [facility] [address] [id number] [address] [place] [address] May, [facility] [address] [id number] [address] [place] [address], [place] [address] Apr, [facility] [address] [id number] [address] [place] [address], [place] [address] Apr, [facility] [address] [id number] [address] [place] [address], [place] [address] Apr, [facility] [address] [id number] [address] [place] [address], [place] [address] Apr, [facility] [address] [id number] [address] [place] [address], [place] [address] Apr, [facility] [address] [id number] [address] [place] [address], [place] [address] Mar, [facility] [address] [id number] [address] [place] [address], [place] [address] Mar, [facility] [address] [id number] [address] [place] [address], [place] [address] Mar, [facility] [address] [id number] [address] [place] [address], [place] [address] Mar, [facility] [address] [id number] [address] [place] [address], [place] [address] Mar, [facility] [address] [id number] [address] [place] [address], [place] [address] Mar, [facility] [address] [id number] [address] [place] [address], [place] [address] Feb, [facility] [address] [id number] [address] [place] [address], [place] [address] Feb, [facility] [address] [id number] [address] [place] [address], [place] [address] Feb, [facility] [address] [id number] [address] [place] [address], [place] [address] Feb, [facility] [address] [id number] [address] [place] [address], [place] [address] Feb, [facility] [address] [id number] [address] [place] [address], [place] [address] Feb, [facility] [address] [id number] [address] [place] [address], [place] [address] Feb, [facility] [address] [id number] [address] [place] [address], [place] [address] Feb, [facility] [address] [id number] [address] [place] [address], [place] [address] Feb, [facility] [address] [id number] [address] [place] [address], [place] [address] Feb, [facility] [address] [id number] [address] [place] [address], [place] [address] Jan, [facility] [address] [id number] [address] [place] [address], [place] [address] Jan, [facility] [address] [id number] [address] [place] [address], [place] [address] Jan, [facility] [address] [id number] [address] [place] [address], [place] [address] Jan, [facility] [address] [id number] [address] [place] [address], [place] [address] Jan, [facility] [address] [id number] [address] [place] [address], [place] [address] Jan, [facility] [address] [id number] [address] [place] [address], [place] [address] Jan, [facility] [address] [id number] [address] [place] [address], [place] [address] Jan, [facility] [address] [id number] [address] [place] [address], [place] [address] Jan, [facility] [address] [id number] [address] [place] [address], [place] [address] Jan, [facility] [address] [id number] [address] [place] [address], [place] [address] Dec, [facility] [address] [id number] [address] [place] [address], [place] [address] Dec, [facility] [address] [id number] [address] [place] [address], [place] [address] Dec, [facility] [address] [id number] [address] [place] [address], [place] [address] Dec, [facility] [address] [id number] [address] [place] [address], [place] [address] Dec, [facility] [address] [id number] [address] [place] [address], [place] [address] Dec, [facility] [address] [id number] [address] [place] [address], [place] [address] Dec, [facility] [address] [id number] [address] [place] [address], [place] [address] Dec, [facility] [address] [id number] [address] [place] [address], [place] [address] Dec, [facility] [address] [id number] [address] [place] [address], [place] [address] Dec, [facility] [address] [id number] [address] [place] [address], [place] [address] Dec, [facility] [address] [id number] [address] [place] [address], [place] [address] Dec, [facility] [address] [id number] [address] [place] [address], [place] [address] Dec, [facility] [address] [id number] [address] [place] [address], [place] [address] Dec, [facility] [address] [id number] [address] [place] [address], [place] [address] Dec, [facility] [address] [id number] [address] [place] [address], [place] [address] 30 Sep, 2013 [facility] [address] [id number] [facility] [place] [address] 30 Sep, 2013 [facility] [address] [id number] [facility] [place] [address] 26 Sep, 2013 [facility] [address] [id number] [address] [place] [address], [place] [address] 26 Sep, 2013 [facility] [address] [id number] [address] [place] [address], [place] [address] 24 Sep, 2013 [facility] [address] [id number] [address] [place] [address], [place] [address] 24 Sep, 2013 [facility] [address] [id number] [address] [place] [address], [place] [address] 23 Sep, 2013 [facility] [address] [id number] [address] [place] [address], [place] [address] 23 Sep, 2013 [facility] [address] [id number] [address] [place] [address], [place] [address] 18 Sep, 2013 [facility] [address] [id number] [address] [place] [address], [place] [address] 18 Sep, 2013 [facility] [address] [id number] [address] [place] [address], [place] [address] 17 Sep, 2013 [facility] [address] [id number] [address] [place] [address], [place] [address] 17 Sep, 2013 [facility] [address] [id number] [address] [place] [address], [place] [address] 11 Sep, 2013 [facility] [address] [id number] [address] [place] [address], [place] [address] 11 Sep, 2013 [facility] [address] [id number] [address] [place] [address], [place] [address] 10 Sep, 2013 [facility] [address] [id number] [address] [place] [address], [place] [address] 10 Sep, 2013 [facility] [address] [id number] [facility] [place] [address] 08 Nov, 2013 [facility] [address] [id number] [address] [place] [address], [place] [address] 08 Nov, 2013 [facility] [address] [id number] [facility] [place] [address] Sep, [facility] [address] [id number] [address] [place] [address], [place] [address] Sep, [facility] [address] [id number] [address] [place] [address], [place] [address] Sep, [facility] [address] [id number] [address] [place] [address], [place] [address] Sep, [facility] [address] [id number] [address] [place] [address], [place] [address] Sep, [facility] [address] [id number] [address] [place] [address], [place] [address] Sep, [facility] [address] [id number] [address] [place] [address], [place] [address] Aug, [facility] [address] [id number] [address] [place] [address], [place] [address] Aug, [facility] [address] [id number] [address] [place] [address], [place] [address] Aug, [facility] [address] [id number] [address] [place] [address], [place] [address] Aug, [facility] [address] [id number] [address] [place] [address], [place] [address] 24 Aug, 2013 [facility] [address] [id number] [address] [place] [address], [place] [address] Aug, [facility] [address] [id number] [address] [place] [address], [place] [address] Aug, [facility] [address] [id number] [address] [place] [address], [place] [address] Aug, [facility] [address] [id number] [address] [place] [address], [place] [address] Aug, [facility] [address] [id number] [address] [place] [address], [place] [address] Aug, [facility] [address] [id number] [address] [place] [address], [place] [address] Aug, [facility] [address] [id number] [address] [place] [address], [place] [address] July, [facility] [address] [id number] [address] [place] [address], [place] [address] July, [facility] [address] [id number] [address] [place] [address], [place] [address] Jun, [facility] [address] [id number] [address] [place] [address], [place] [address] Jun, [facility] [address] [id number] [address] [place] [address], [place] [address] Jun, [facility] [address] [id number] [address] [place] [address], [place] [address] Jun, [facility] [address] [id number] [address] [place] [address], [place] [address] Jun, [facility] [address] [id number] [address] [place] [address], [place] [address] Jun, [facility] [address] [id number] [address] [place] [address], [place] [address] Jun, [facility] [address] [id number] [address] [place] [address], [place] [address] Jun, [facility] [address] [id number] [address] [place] [address], [place] [address] Jun, [facility] [address] [id number] [address] [place] [address], [place] [address] Jun, [facility] [address] [id number] [address] [place] [address], [place] [address] Jun, [facility] [address] [id number] [facility] [address] Jun, [facility] [address] [id number] [address] [place] [address], [place] [address] May, [facility] [address] [id number] [address] [place] [address], [place] [address] May, [facility] [address] [id number] [address] [place] [address], [place] [address] May, [facility] [address] [id number] [address] [place] [address], [place] [address] May, [facility] [address] [id number] [address] [place] [address], [place] [address] May, [facility] [address] [id number] [address] [place] [address], [place] [address] May, [facility] [address] [id number] [address] [place] [address], [place] [address] May, [facility] [address] [id number] [address] [place] [address], [place] [address] May, [facility] [address] [id number] [address] [place] [address], [place] [address] May, [facility] [address] [id number] [address] [place] [address], [place] [address] May, [facility] [address] [id number] [address] [place] [address], [place] [address] May, [facility] [address] [id number] [address] [place] [address], [place] [address] May, [facility] [address] [id number] [address] [place] [address], [place] [address] Apr, [facility] [address] [id number] [address] [place] [address], [place] [address] Apr, [facility] [address] [id number] [address] [place] [address], [place] [address] Apr, [facility] [address] [id number] [address] [place] [address], [place] [address] Apr, [facility] [address] [id number] [address] [place] [address], [place] [address] Apr, [facility] [address] [id number] [address] [place] [address], [place] [address] Apr, [facility] [address] [id number] [address] [place] [address], [place] [address] Apr, [facility] [address] [id number] [address] [place] [address], [place] [address] Apr, [facility] [address] [id number] [address] [place] [address], [place] [address] Apr, [facility] [address] [id number] [address] [place] [address], [place] [address] Apr, [facility] [address] [id number] [address] [place] [address], [place] [address] Apr, [facility] [address] [id number] [address] [place] [address], [place] [address] Apr, [facility] [address] [id number] [address] [place] [address], [place] [address] Apr, [facility] [address] [id number] [address] [place] [address], [place] [address] Apr, [facility] [address] [id number] [address] [place] [address], [place] [address] Apr, [facility] [address] [id number] [address] [place] [address], [place] [address] Apr, [facility] [address] [id number] [address] [place] [address], [place] [address] 13 Apr, 2013 [facility] [address] [id number] [address] [place] [address], [place] [address] 13 Jan, 2013 [facility] [address] [id number] [address] [place] [address], [place] [address] Jan, [facility] [address] [id number] [address] [place] [address], [place] [address] 08 Jan, 2013 [facility] [address] [id number] [address] [place] [address], [place] [address] Jan, [facility] [address] [id number] [address] [place] [address], [place] [address] Jan, [facility] [address] [id number] [address] [place] [address], [place] [address] Jan, [facility] [address] [id number] [address] [place] [address], [place] [address] Jan, [facility] [address] [id number] [address] [place] [address], [place] [address] Dec, [facility] [address] [id number] [address] [place] [address], [place] [address] Dec, [facility] [address] [id number] [address] [place] [address], [place] [address] Dec, [facility] [address] [id number] [address] [place] [address], [place] [address] Nov, [facility] [address] [id number] [address] [place] [address], [place] [address] 10 Nov, 2012 [facility] [address] [id number] [address] [place] [address], [place] [address] 05 Nov, 2012 [facility] [address] [id number] [address] [place] [address], [place] [address] 04 Nov, 2012 [facility] [address] [id number] [address] [place] [address], [place] [address] Oct, [facility] [address] [id number] [address] [place] [address], [place] [address] Oct, [facility] [address] [id number] [address] [place] [address], [place] [address] Oct, [facility] [address] [id number] [address] [place] [address], [place] [address] Oct, [facility] [address] [id number] [address] [place] [address], [place] [address] Oct, [facility] [address] [id number] [address] [place] [address], [place] [address] Sep, [facility] [address] [id number] [address] [place] [address], [place] [address] Sep, [facility] [address] [id number] [address] [place] [address], [place] [address] Sep, [facility] [address] [id number] [address] [place] [address], [place] [address] Sep, [facility] [address] [id number] [address] [place] [address], [place] [address] Sep, [facility] [address] [id number] [address] [place] [address], [place] [address] Sep, [facility] [address] [id number] [address] [place] [address], [place] [address] Sep, [facility] [address] [id number] [address] [place] [address], [place] [address] Aug, [facility] [address] [id number] [address] [place] [address], [place] [address] Aug, [facility] [address] [id number] [address] [place] [address], [place] [address] July, [facility] [address] [id number] [address] [place] [address], [place] [address] Jun, [facility] [address] [id number] [address] [place] [address], [place] [address] Jun, [facility] [address] [id number] [address] [place] [id number] Jun, [facility] [address] [id number] [address] [place] [address], [place] [address] Apr, [facility] [address] [id number] [address] [place] [address], [place] [address] Apr, [facility] [address] [id number] [address] [place] [address], [place] [address] Apr, [facility] [address] [id number] [address] [place] [address], [place] [address] Mar, [facility] [address] [id number] [address] [place] [address], [place] [address] Mar, [facility] [address] [id number] [address] [place] [address], [place] [address] Mar, [facility] [address] [id number] [address] [place] [address], [place] [address] Mar, [facility] [address] [id number] [address] [place] [address], [place] [address] Mar, [facility] [address] [id number] [address] [place] [address], [place] [address] 14 Feb, 2012 [facility] [address] [id number] [address] [place] [address], [place] [address] 14 Feb, 2012 [facility] [address] [id number] [address] [place] [address], [place] [address] 13 Jan, 2012 [facility] [facility] [address] [id number] [address] [place] [address], [place] [address] 13 Jan, 2012 [facility] [address] [id number] [address] [place] [address], [place] [address] 13 Jan, 2012 [facility] [address] [id number] [address] [place] [address], [place] [address] 13 Jan, 2012 [facility] [address] [id number] [address] [place] [address], [place] [address] 07 Jan, 2012 [facility] [address] [id number] [address] [place] [address], [place] [address] Jan, [facility] [address] [id number] [address] [place] [address], [place] [address] Jan, [facility] [address] [id number] [address] [place] [address], [place] [address] Dec, [facility] [address] [id number] [address] [place] [address], [place] [address] Dec, [facility] [address] [id number] [address] [place] [address], [place] [address] Dec, [facility] [address] [id number] [address] [place] [address], [place] [address] Dec, [facility] [address] [id number] [address] [place] [address], [place] [address] Dec, [facility] [address] [id number] [address] [place] [address], [place] [address] Dec, [facility] [address] [id number] [address] [place] [address], [place] [address] Dec, [facility] [address] [id number] [address] [place] [address], [place] [address] Dec, [facility] [address] [id number] [address] [place] [address], [place] [address] Dec, [facility] [address] [id number] [address] [place] [address], [place] [address] Dec, [facility] [address] [id number] [address] [place] [address], [place] [address] Oct, [facility] [address] [id number] [address] [place] [address], [place] [address] Oct, [facility] [address] [id number] [address] [place] [address], [place] [address] Aug, [facility] [address] [id number] [address] [place] [address], [place] [address] 14 Aug, 2011 [facility] [address] [id number] [address] [place] [address], [place] [address] July, [facility] [address] [id number] [address] [place] [address], [place] [address] 17 Jun, 2011 [facility] [address] [id number] [address] [place] [address], [place] [address] Jun, [facility] [address] [id number] [address] [place] [address], [place] [address] May, [facility] [address] [id number] [address] [place] [address], [place] [address] Apr, [facility] [address] [id number] [address] [place] [address], [place] [address] Apr, [facility] [address] [id number] [address] [place] [address], [place] [address] Mar, [facility] [address] [id number] [address] [place] [address], [place] [address] Mar, [facility] [address] [id number] [address] [place] [address], [place] [address] 19 Feb, 2011 [facility] [address] [id number] [address] [place] [address], [place] [address] 15 Feb, 2011 [facility] [address] [id number] [address] [place] [address], [place] [address] 13 Feb, 2011 [facility] [address] [id number] [address] [place] [id number] 13 Feb, 2011 [facility] [address] [id number] [address] [place] [address], [place] [address] 11 Jan, 2011 [facility] [address] [id number] [address] [place] [address], [place] [address] 17 Dec, 2010 [facility] [address] [id number] [address] [place] [address], [place] [address] 08 Feb, 2010 [facility] [address] [id number] [address] [place] [id number] Feb, [facility] [address] [id number] [address] [place] [id number] Feb, [facility] [address] [id number] [address] [place] [id number] Feb, [facility] [address] [id number] [address] [place] [id number] Dec, [facility] [address] [id number] [address] [place] [id number] Dec, [facility] [address] [id number] [address] [place] [id number] Oct, [facility] [address] [id number] [address] [place] [id number] Jun, [facility] [address] [id number] [address] [place] [id number] Feb, [facility] [address] [id number] [address] [place] [id number] Feb, [facility] [address] [id number] [address] [place] [id number] Feb, [facility] [address] [id number] [address] [place] [id number] Dec, IMMUNIZATIONS No Known Immunizations SOCIAL HISTORY [...] 1985, 1987 Surgical History cholecystectomy Surgical History [place] Filter 06/2009 Surgical History Left leg exploratory surgery r/t clot 19 88 Surgical History left shoulder surgery 09/14/17 Surgical History lap band removed 12/2017 Surgical History gastic sleeve 01/2018 Surgical History Back surgery 2019 Hospitalization History Ruptured Ovarian Cyst with abd bleed ing 11/2009 Hospitalization History Broken Back 06/2018
--- OUTSIDE RECORDS SUMMARY | 2019-10-19 12:27 | XMS REPORT ---
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 Active 959155618 Problem Hypertriglyceridemia E78.1 Active 729533534 Problem 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 Active 053462916 Problem Pelvic pain R10.2 Active 58001844 Problem Peripheral edema R60.9 Active 271 747423 Problem Moderate episode of recurrent major depressive disorder F33.1 Active 060956195 Problem Presence of IVC filter Z95.828 Active 036478383 Problem Vitamin D deficiency E55.9 Active 39869553 Problem Generalized anxiety disorder F41.1 A ctive 694936195 Problem Excessive daytime sleepiness G47.19 A ctive 481296620751 Problem Gastroesophageal reflux disease, esophagitis pre sence not specified K21.9 Active 698523002 Problem Thyroid nodule E04.1 Active 97825 5005 Problem Morbid obesity E66.01 Active 08946 6002 ALLERGIES No Information ENCOUNTERS Encounter Location Date Diagnosis [facility] [address] [facility] [id number] [address] [place] [phone] Dec, [facility] [address] [facility] [id number] [address] [place] [phone] 26 Nov, 2018 Encounter for weight managem ent Z76.89 [facility] [address] [facility] [id number] [address] [place] [phone] Nov, Thyroid nodule E04.1 [facility] [address] [facility] [id number] [address] [place] [phone] Nov, Thyroid nodule E04.1 [facility] [address] [facility] [id number] [address] [place] [phone] Nov, Thyroid nodule E04.1 [facility] [address] [facility] [id number] [address] [place] [phone] Oct, Syncope, unspecified syncope type R55 and Encounter for weight management Z76.89 [facility] [address] [facility] [id number] [address] [place] [phone] Oct, Morbid obesity E66.01 [facility] [address] [facility] [id number] [address] [place] [phone] Oct, Hypertriglyceridemia E78.1 [place] [address] [facility] [id number] [address] [place] [phone] Oct, [facility] [address] [facility] [id number] [address] [place] [phone] Oct, Hypertriglyceridemia E78.1 [facility] [address] [facility] [id number] [address] [place] [phone] Sep, Hypertriglyceridemia E78.1 a nd Vitamin D deficiency E55.9 [facility] [address] [facility] [id number] [address] [place] [phone] Sep, [facility] [address] [facility] [id number] [address] [place] [phone] Sep, Morbid obesity E66.01 ; Mode rate episode of recurrent major depressive disorder F33.1 ; Hypertriglyceridemia E78.1 and Vitamin D deficiency E55.9 [facility] [address] [facility] [id number] [address] [place] [id number] Aug, [facility] [address] [facility] [id number] [address] [place] [phone] July, [facility] [address] [facility] [id number] [address] [place] [phone] July, [facility] [address] [id number] [address] [place] [phone] Jun, [facility] [address] [facility] [id number] [address] [place] [phone] Jun, [facility] [address] [id number] [address] [place] [phone] Jun, Closed compression fracture of L3 lumbar vertebra with routine healing, subsequent encounter S32.030D and Drug-induced constipation K59.03 [facility] [address] [id number] [address] [place] [phone] Jun, [facility] [address] [facility] [id number] [address] [place] [phone] Jun, [facility] [address] [facility] [id number] [address] [place] [phone] Apr, [facility] [address] [facility] [id number] [address] [place] [id number] Apr, Morbid obesity E66.01 [facility] [address] [facility] [id number] [place] [phone] Apr, Morbid obesity E66.01 ; Hype rtriglyceridemia E78.1 ; Gastroesophageal reflux disease, esophagitis presence not specified K21.9 and Joint pain M25.50 [facility] [address] [facility] [id number] [address] [place] [phone] Feb, [facility] [address] [facility] [id number] [address] [place] [phone] Feb, [facility] [address] [facility] [id number] [address] [place] [phone] Jan, Acute bacterial conjunctivit is H10.30 [facility] [address] [facility] [id number] [address] [place] [phone] Dec, [facility] [address] [place] [id number] [address] [place] [phone] 04 Dec, 2017 [facility] [address] [facility] [id number] [address] [place] [phone] 17 Nov, 2017 [facility] [address] [facility] [id number] [address] [place] [phone] 07 Nov, 2017 Obstructive sleep apnea G47. 33 ; Morbid obesity E66.01 and Gastroesophageal reflux disease, esophagitis presence not specified K21.9 [facility] [address] [id number] [address] [place] [id number] 06 Nov, 2017 Encounter for examination of eyes and vision without abnormal findings Z01.00 [facility] [address] [facility] [id number] [address] [place] [phone] 31 Oct, 2017 Thyroid nodule E04.1 and Scr eening for breast cancer Z12.31 [facility] [address] [facility] [id number] [address] [place] [id number] 23 Oct, 2017 History of DVT (deep vein th rombosis) Z86.718 ; Thyroid nodule E04.1 and Gastroesophageal reflux disease, esophagitis presence not specified K21.9 [facility] [address] [facility] [id number] [address] [place] [phone] Oct, [facility] [address] [facility] [id number] [address] [place] [id number] Sep, [facility] [address] [facility] [id number] [address] [place] [phone] Aug, [facility] [address] [facility] [id number] [address] [place] [phone] Aug, [facility] [address] [facility] [id number] [address] [place] [phone] Aug, Acute pain of left shoulder M25.512 and Thyroid nodule E04.1 [facility] [address] [facility] [id number] [address] [place] [phone] July, Superior glenoid labrum lesi on of left shoulder, subsequent encounter S43.432D [facility] [address] [facility] [id number] [address] [place] [phone] Jun, History of DVT (deep vein th rombosis) Z86.718 [place] [address] [facility] [id number] [address] [place] [phone] Jun, History of DVT (deep vein th rombosis) Z86.718 [place] [address] [place] [id number] [address] [place] [phone] Jun, Impingement syndrome, should er, left M75.42 [place] [address] [place] [id number] [address] [place] [id number] May, Subacromial bursitis of left shoulder joint M75.52 [place] [address] [place] [id number] [address] [place] [phone] May, [place] [address] [phone] May, Hypertriglyceridemia E78.1 ; penitentiary (current) use of anticoagulants Z79.01 and Excessive daytime sleepiness G47.19 [place] [address] [place] [id number] [address] [place] [id number] May, History of DVT (deep vein th rombosis) Z86.718 ; Generalized anxiety disorder F41.1 ; Hypertriglyceridemia E78.1 ; 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 ; Subacromial bursitis of left shoulder joint M75.52 and Excessive daytime sleepiness G47.19 [place] [address] [facility] [id number] [address] [place] [phone] May, [place] [address] [facility] [id number] [address] [place] [phone] May, penitentiary (current) use of a nticoagulants Z79.01 [place] [address] [facility] [id number] [address] [place] [phone] Apr, penitentiary (current) use of a nticoagulants Z79.01 [place] [address] [id number] [address] [place] [phone] Apr, lobsterman (current) use of a nticoagulants Z79.01 [facility] [address] [id number] [address] [place] [id number] 20 Apr, 2017 penitentiary (current) use of a nticoagulants Z79.01 [facility] [address] [id number] [address] [place] [phone] Apr, [facility] [address] [id number] [address] [place] [phone] Apr, lobsterman (current) use of a nticoagulants Z79.01 [facility] [address] [id number] [address] [place] [id number] 13 Apr, 2017 penitentiary (current) use of a nticoagulants Z79.01 [facility] [address] [id number] [address] [place] [id number] Apr, lobsterman (current) use of a nticoagulants Z79.01 [facility] [address] [id number] [address] [place] [phone] Apr, penitentiary (current) use of a nticoagulants Z79.01 [facility] [address] [id number] [address] [place] [phone] Apr, penitentiary (current) use of a nticoagulants Z79.01 [facility] [address] [id number] [address] [place] [phone] Apr, lobsterman (current) use of a nticoagulants Z79.01 [facility] [address] [id number] [address] [place] [id number] Mar, penitentiary (current) use of a nticoagulants Z79.01 [facility] [address] [id number] [address] [place] [phone] Mar, [facility] [address] [id number] [address] [place] [phone] Mar, penitentiary (current) use of a nticoagulants Z79.01 [facility] [address] [id number] [address] [place] [id number] Jan, Dental examination Z01.20 [facility] [address] [id number] [address] [place] [id number] Jan, [facility] [address] [id number] [address] [place] [phone] Jan, penitentiary (current) use of a nticoagulants Z79.01 [facility] [address] [id number] [address] [place] [phone] Jan, History of DVT (deep vein th rombosis) Z86.718 [facility] [address] [id number] [address] [place] [phone] Jan, Generalized anxiety disorder F41.1 and Peripheral edema R60.9 [facility] [address] [id number] [address] [place] [phone] Nov, History of DVT (deep vein th rombosis) Z86.718 [facility] [address] [id number] [address] [place] [phone] Nov, penitentiary (current) use of a nticoagulants Z79.01 [facility] [address] [id number] [address] [place] [phone] Nov, Acute non-recurrent maxillar y sinusitis J01.00 [facility] [address] [id number] [address] [place] [phone] Oct, penitentiary (current) use of a nticoagulants Z79.01 [facility] [address] [id number] [address] [place] [phone] Oct, Personal history of venous t hrombosis and embolism Z86.718 [place] [address] [facility] [id number] [address] [place] [id number] Sep, [place] [address] [facility] [id number] [address] [place] [phone] Sep, Personal history of venous t hrombosis and embolism Z86.718 [place] [address] [facility] [id number] [address] [place] [phone] Sep, lobsterman (current) use of a nticoagulants Z79.01 [place] [address] [facility] [id number] [address] [place] [phone] Sep, lobsterman (current) use of a nticoagulants Z79.01 [place] [address] [facility] [id number] [address] [place] [phone] Sep, Generalized anxiety disorder F41.1 and History of DVT (deep vein thrombosis) Z86.718 [place] [address] [place] [id number] [address] [place] [phone] Aug, History of DVT (deep vein th rombosis) Z86.718 ; Generalized anxiety disorder F41.1 ; penitentiary (current) use of anticoagulants Z79.01 ; Pelvic pain R10.2 ; Hypertriglyceridemia E78.1 ; Excessive daytime sleepiness G47.19 ; Colon cancer screening Z12.11 ; Screening for breast cancer Z12.39 ; Peripheral edema R60.9 and Gastroesophageal reflux disease, esophagitis presence not specified K21.9 [place] [address] [facility] [id number] [address] [place] [phone] Aug, [place] [address] [facility] [id number] [address] [place] [phone] July, [place] [address] [place] [id number] [place] [phone] July, History of DVT (deep vein th rombosis) Z86.718 [place] [address] [facility] [id number] [address] [place] [id number] Jun, Generalized anxiety disorder F41.1 [facility] [address] [facility] [id number] [address] [place] [phone] Jun, History of DVT (deep vein th rombosis) Z86.718 [facility] [address] [facility] [id number] [address] [place] [phone] Jun, History of DVT (deep vein th rombosis) Z86.718 [facility] [address] [place] [id number] [address] [place] [phone] Jun, History of DVT (deep vein th rombosis) Z86.718 [place] [address] [facility] [id number] [address] [place] [id number] Jun, History of DVT (deep vein th rombosis) Z86.718 [place] [address] [place] [id number] [address] [place] [id number] May, History of DVT (deep vein th rombosis) Z86.718 [place] [address] [facility] [id number] [address] [place] [id number] May, penitentiary (current) use of a nticoagulants Z79.01 [place] [address] [place] [id number] [address] [place] [phone] May, lobsterman (current) use of a nticoagulants Z79.01 [place] [address] [place] [id number] [address] [place] [id number] May, History of DVT (deep vein th rombosis) Z86.718 [facility] [address] [facility] [id number] [address] [place] [id number] Apr, Bacterial conjunctivitis of left eye H10.9 and H/O motion sickness Z87.898 [facility] [address] [facility] [id number] [address] [place] [id number] Apr, History of DVT (deep vein th rombosis) Z86.718 [place] [address] [place] [id number] [address] [place] [id number] 23 Apr, 2016 History of DVT (deep vein th rombosis) Z86.718 [facility] [address] [id number] [address] [place] [id number] 15 Apr, 2016 History of DVT (deep vein th rombosis) Z86.718 [facility] [address] [id number] [address] [place] [phone] 14 Apr, 2016 penitentiary (current) use of a nticoagulants Z79.01 [facility] [address] [id number] [address] [place] [phone] Mar, [facility] [address] [id number] [address] [place] [phone] Mar, penitentiary (current) use of a nticoagulants Z79.01 [facility] [address] [id number] [address] [place] [phone] Mar, Hypertriglyceridemia E78.1 a nd 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 [facility] [address] [id number] [address] [place] [id number] Feb, penitentiary (current) use of a nticoagulants Z79.01 [facility] [address] [id number] [address] [place] [phone] Feb, penitentiary (current) use of a nticoagulants Z79.01 [facility] [address] [id number] [address] [place] [id number] Feb, penitentiary (current) use of a nticoagulants Z79.01 [facility] [address] [id number] [address] [place] [id number] Dec, [facility] [address] [id number] [address] [place] [phone] Nov, [facility] [address] [id number] [address] [place] [phone] Nov, History of DVT (deep vein th rombosis) Z86.718 ; Tremulousness R25.1 ; Generalized anxiety disorder F41.1 ; Peripheral edema R60.9 and Hypertriglyceridemia E78.1 [facility] [address] [facility] [id number] [address] [place] [phone] Oct, History of DVT (deep vein th rombosis) Z86.718 [facility] [address] [id number] [address] [place] [phone] Oct, [facility] [address] [facility] [id number] [address] [place] [id number] Sep, History of DVT (deep vein th rombosis) Z86.718 [facility] [address] [facility] [id number] [address] [place] [phone] Sep, lobsterman (current) use of a nticoagulants Z79.01 [facility] [address] [facility] [id number] [address] [place] [phone] July, [place] [address] [facility] [id number] [address] [place] [phone] July, penitentiary (current) use of a nticoagulants Z79.01 [facility] [address] [facility] [id number] [address] [place] [id number] July, lobsterman (current) use of a nticoagulants Z79.01 [facility] [address] [facility] [id number] [address] [place] [phone] Jun, penitentiary (current) use of a nticoagulants Z79.01 [facility] [address] [facility] [id number] [address] [place] [phone] Jun, Coccyx pain M53.3 ; Encounte r for therapeutic drug level monitoring Z51.81 and penitentiary current use 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.01 [facility] [address] [facility] [id number] [address] [place] [phone] May, Abnormal mammogram R92.8 [facility] [address] [facility] [id number] [address] [place] [phone] May, [facility] [address] [facility] [id number] [address] [place] [phone] May, Acute vaginitis N76.0 and En counter for other screening for malignant neoplasm of breast Z12.39 [facility] [address] [facility] [id number] [address] [place] [id number] Apr, [facility] [address] [facility] [id number] [address] [place] [phone] Apr, [place] [address] [facility] [id number] [address] [place] [phone] Apr, Peripheral edema R60.9 [place] [address] [facility] [id number] [address] [place] [phone] Apr, lobsterman (current) use of a nticoagulants Z79.01 [place] [address] [facility] [id number] [address] [place] [phone] Apr, Peripheral edema R60.9 and L jose martin term (current) 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 Z79.01 [place] 089931 [address] [facility] [id number] [address] [place] [phone] Apr, penitentiary (current) use of a nticoagulants Z79.01 [facility] [address] [facility] [id number] [address] [place] [phone] Apr, [facility] [address] [facility] [id number] [address] [place] [phone] Apr, penitentiary (current) use of a nticoagulants Z79.01 [place] 089931 [address] [facility] [id number] [address] [place] [phone] Apr, Peripheral edema R60.9 [facility] [address] [facility] [id number] [address] [place] [phone] Mar, lobsterman (current) use of a nticoagulants Z79.01 [place] [address] [id number] [address] [place] [phone] Mar, lobsterman (current) use of a nticoagulants Z79.01 and Hypertriglyceridemia E78.1 [place] [address] [id number] [address] [place] [phone] Mar, penitentiary (current) use of a nticoagulants Z79.01 [place] [address] [id number] [address] [place] [phone] Mar, penitentiary (current) use of a nticoagulants Z79.01 [place] [address] [id number] [address] [place] [phone] Mar, [place] [address] [id number] [address] [place] [phone] Mar, penitentiary (current) use of a nticoagulants Z79.01 ; Hypertriglyceridemia E78.1 ; Personal history of venous thrombosis and embolism Z86.718 and Lump R22.9 [place] [address] [id number] [address] [place] [phone] Mar, Personal history of venous t hrombosis and embolism Z86.718 [place] [address] [id number] [address] [place] [phone] Mar, Personal history of venous t hrombosis and embolism Z86.718 [place] [address] [id number] [address] [place] [phone] Mar, [place] [address] [id number] [address] [place] [phone] Dec, Personal history of venous t hrombosis and embolism Z86.718 [place] [address] [id number] [address] [place] [phone] Dec, Personal history of venous t hrombosis and embolism V12.51 [facility] [address] [id number] [address] [place] [phone] Nov, Personal history of venous t hrombosis and embolism V12.51 [facility] [address] [id number] [address] [place] [phone] Nov, Personal history of venous t hrombosis and embolism V12.51 [facility] [address] [id number] [address] [place] [phone] Nov, Personal history of venous t hrombosis and embolism V12.51 [facility] [address] [id number] [address] [place] [phone] Nov, Personal history of venous t hrombosis and embolism V12.51 [facility] [address] [id number] [address] [place] [phone] Nov, [facility] [address] [id number] [address] [place] [phone] Oct, Dysuria 788.1 [facility] [address] [id number] [address] [place] [phone] Oct, Personal history of venous t hrombosis and embolism V12.51 [facility] [address] [id number] [address] [place] [id number] Oct, [facility] [address] [id number] [address] [place] [phone] Oct, Personal history of venous t hrombosis and embolism V12.51 [facility] [address] [id number] [address] [place] [phone] Sep, Personal history of venous t hrombosis and embolism V12.51 [facility] [address] [id number] [address] [place] [phone] Sep, Personal history of venous t hrombosis and embolism V12.51 [facility] [address] [id number] [address] [place] [id number] 19 Aug, 2014 Personal history of venous t hrombosis and embolism V12.51 [facility] [address] [id number] [address] [place] [id number] 18 Aug, 2014 Personal history of venous t hrombosis and embolism V12.51 [facility] [address] [id number] [address] [place] [phone] 15 Aug, 2014 Personal history of venous t hrombosis and embolism V12.51 [facility] [address] [id number] [address] [place] [phone] July, Generalized anxiety disorder 300.02 ; Abdominal pain, left lower quadrant 789.04 and Personal history of venous thrombosis and embolism V12.51 [facility] [address] [id number] [address] [place] [phone] Jun, [facility] [address] [id number] [address] [place] [phone] Jun, [facility] [address] [id number] [address] [place] [phone] May, [facility] [address] [id number] [address] [place] [phone] May, [facility] [address] [id number] [address] [place] [phone] May, [facility] [address] [id number] [address] [place] [phone] May, [facility] [address] [id number] [address] [place] [phone] May, [facility] [address] [id number] [address] [place] [phone] May, [facility] [address] [id number] [address] [place] [phone] May, [facility] [address] [id number] [address] [place] [phone] May, [facility] [address] [id number] [address] [place] [address], [place] [address] Apr, [facility] [address] [id number] [address] [place] [address], [place] [address] Apr, [facility] [address] [id number] [address] [place] [address], [place] [address] Apr, [facility] [address] [id number] [address] [place] [address], [place] [address] Apr, [facility] [address] [id number] [address] [place] [address], [place] [address] Apr, [facility] [address] [id number] [address] [place] [address], [place] [address] Mar, [facility] [address] [id number] [address] [place] [address], [place] [address] Mar, [facility] [address] [id number] [address] [place] [address], [place] [address] Mar, [facility] [address] [id number] [address] [place] [address], [place] [address] Mar, [facility] [address] [id number] [address] [place] [address], [place] [address] Mar, [facility] [address] [id number] [address] [place] [address], [place] [address] Mar, [facility] [address] [id number] [address] [place] [address], [place] [address] Feb, [facility] [address] [id number] [address] [place] [address], [place] [address] Feb, [facility] [address] [id number] [address] [place] [address], [place] [address] Feb, [facility] [address] [id number] [address] [place] [address], [place] [address] Feb, [facility] [address] [id number] [address] [place] [address], [place] [address] Feb, [facility] [address] [id number] [address] [place] [address], [place] [address] Feb, [facility] [address] [id number] [address] [place] [address], [place] [address] Feb, [facility] [address] [id number] [address] [place] [address], [place] [address] Feb, [facility] [address] [id number] [address] [place] [address], [place] [address] Feb, [facility] [address] [id number] [address] [place] [address], [place] [address] Feb, [facility] [address] [id number] [address] [place] [address], [place] [address] Jan, [facility] [address] [id number] [address] [place] [address], [place] [address] Jan, [facility] [place] [address] [id number] [address] [place] [address], [place] [address] Jan, [facility] [address] [id number] [address] [place] [address], [place] [address] Jan, [facility] [address] [id number] [address] [place] [address], [place] [address] Jan, [facility] [address] [id number] [address] [place] [address], [place] [address] Jan, [facility] [address] [id number] [address] [place] [address], [place] [address] Jan, [facility] [place] [address] [id number] [address] [place] [address], [place] [address] Jan, [facility] [address] [id number] [address] [place] [address], [place] [address] Jan, [facility] [place] [address] [id number] [address] [place] [address], [place] [address] Jan, [facility] [address] [id number] [address] [place] [address], [place] [address] Dec, [facility] [address] [id number] [address] [place] [address], [place] [address] Dec, [facility] [address] [id number] [address] [place] [address], [place] [address] Dec, [facility] [address] [id number] [address] [place] [address], [place] [address] Dec, [facility] [address] [id number] [address] [place] [address], [place] [address] Dec, [facility] [address] [id number] [address] [place] [address], [place] [address] Dec, [facility] [address] [id number] [address] [place] [address], [place] [address] Dec, [facility] [address] [id number] [address] [place] [address], [place] [address] Dec, [facility] [address] [id number] [address] [place] [address], [place] [address] Dec, [facility] [address] [id number] [address] [place] [address], [place] [address] Dec, [facility] [address] [id number] [address] [place] [address], [place] [address] Dec, [facility] [address] [id number] [address] [place] [address], [place] [address] Dec, [facility] [address] [id number] [address] [place] [address], [place] [address] Dec, [facility] [address] [id number] [address] [place] [address], [place] [address] Dec, [facility] [address] [id number] [address] [place] [address], [place] [address] Dec, [facility] [address] [id number] [address] [place] [address], [place] [address] Nov, [facility] [address] [id number] [address] [place] [address], [place] [address] 30 Sep, 2013 [facility] [address] [id number] [address] [place] [address], [place] [address] 26 Sep, 2013 [facility] [address] [id number] [address] [place] [address], [place] [address] 26 Sep, 2013 [facility] [address] [id number] [address] [place] [address], [place] [address] 24 Sep, 2013 [facility] [address] [id number] [address] [place] [address], [place] [address] 24 Sep, 2013 [facility] [address] [id number] [address] [place] [address], [place] [address] 23 Sep, 2013 [facility] [address] [id number] [address] [place] [address], [place] [address] 23 Sep, 2013 [facility] [address] [id number] [address] [place] [address], [place] [address] 18 Sep, 2013 [facility] [address] [id number] [address] [place] [address], [place] [address] 18 Nov, 2013 [facility] [address] [id number] [address] [place] [address], [place] [address] 17 Nov, 2013 [facility] [address] [id number] [address] [place] [address], [place] [address] 17 Sep, 2013 [facility] [address] [id number] [address] [place] [address], [place] [address] 11 Sep, 2013 [facility] [address] [id number] [address] [place] [address], [place] [address] 11 Sep, 2013 [facility] [place] [address] [id number] [address] [place] [address], [place] [address] 10 Sep, 2013 [facility] [address] [id number] [address] [place] [address], [place] [address] 10 Sep, 2013 [facility] [address] [id number] [address] [place] [address], [place] [address] 08 Nov, 2013 [facility] [address] [id number] [address] [place] [address], [place] [address] 08 Nov, 2013 [facility] [address] [id number] [address] [place] [address], [place] [address] Sep, [facility] [address] [id number] [address] [place] [address], [place] [address] Sep, [facility] [address] [id number] [address] [place] [address], [place] [address] Sep, [facility] [address] [id number] [address] [place] [address], [place] [address] Sep, [facility] [place] [address] [id number] [address] [place] [address], [place] [address] Sep, [facility] [place] [address] [id number] [address] [place] [address], [place] [address] Sep, [facility] [place] [address] [id number] [address] [place] [address], [place] [address] Aug, [facility] [address] [id number] [address] [place] [address], [place] [address] Aug, [facility] [address] [id number] [address] [place] [address], [place] [address] Aug, [facility] [address] [id number] [address] [place] [address], [place] [address] Aug, [facility] [address] [id number] [address] [place] [address], [place] [address] 24 Aug, 2013 [facility] [address] [id number] [address] [place] [address], [place] [address] Aug, [facility] [address] [id number] [address] [place] [address], [place] [address] Aug, [facility] [address] [id number] [address] [place] [address], [place] [address] Aug, [facility] [address] [id number] [facility] [place] [address] 10 Aug, 2013 [facility] [address] [id number] [address] [place] [address], [place] [address] Aug, [facility] [address] [id number] [address] [place] [address], [place] [address] Aug, [facility] [address] [id number] [address] [place] [address], [place] [address] July, [facility] [address] [id number] [address] [place] [address], [place] [address] July, [facility] [address] [id number] [address] [place] [address], [place] [address] Jun, [facility] [address] [id number] [address] [place] [address], [place] [address] Jun, [facility] [address] [id number] [address] [place] [address], [place] [address] Jun, [facility] [address] [id number] [address] [place] [address], [place] [address] Jun, [facility] [address] [id number] [address] [place] [address], [place] [address] Jun, [facility] [address] [id number] [address] [place] [address], [place] [address] Jun, [facility] [address] [id number] [address] [place] [address], [place] [address] 15 Jun, 2013 [facility] [address] [id number] [address] [place] [address], [place] [address] 15 Jun, 2013 [facility] [address] [id number] [address] [place] [address], [place] [address] Jun, [facility] [address] [id number] [address] [place] [address], [place] [address] Jun, [facility] [address] [id number] [address] [place] [address], [place] [address] Jun, [facility] [address] [id number] [facility] [place] [address] Jun, [facility] [address] [id number] [facility] [place] [address] May, [facility] [address] [id number] [facility] [place] [address] May, [facility] [address] [id number] [address] [place] [address], [place] [address] May, [facility] [address] [id number] [address] [place] [address], [place] [address] May, [facility] [address] [id number] [address] [place] [address], [place] [address] May, [facility] [address] [id number] [address] [place] [address], [place] [address] May, [facility] [address] [id number] [address] [place] [address], [place] [address] May, [facility] [address] [id number] [address] [place] [address], [place] [address] May, [facility] [address] [id number] [address] [place] [address], [place] [address] May, [facility] [address] [id number] [address] [place] [address], [place] [address] May, [facility] [address] [id number] [address] [place] [address], [place] [address] May, [facility] [address] [id number] [address] [place] [address], [place] [address] May, [facility] [address] [id number] [address] [place] [address], [place] [address] Apr, [facility] [address] [id number] [address] [place] [address], [place] [address] Apr, [facility] [address] [id number] [address] [address] Apr, [facility] [address] [id number] [address] [place] [address], [place] [address] Apr, [facility] [address] [id number] [address] [place] [address], [place] [address] Apr, [facility] [address] [id number] [address] [place] [address], [place] [address] Apr, [facility] [address] [id number] [address] [place] [address], [place] [address] Apr, [facility] [address] [id number] [address] [place] [address], [place] [address] Apr, [facility] [address] [id number] [address] [place] [address], [place] [address] Apr, [facility] [address] [id number] [address] [place] [address], [place] [address] Apr, [facility] [address] [id number] [address] [place] [address], [place] [address] Apr, [facility] [address] [id number] [address] [place] [address], [place] [address] Apr, [facility] [facility] [address] [id number] [address] [place] [address] Apr, [facility] [address] [id number] [address] [place] [address] Apr, [facility] [address] [id number] [address] [place] [address], [place] [address] Apr, [facility] [address] [id number] [address] [place] [address], [place] [address] Apr, [facility] [address] [id number] [address] [place] [address] 13 Apr, 2013 [facility] [address] [id number] [address] [place] [address] Jan, [facility] [address] [id number] [address] [place] [address], [place] [address] Jan, [facility] [address] [id number] [address] [place] [address], [place] [address] 08 Jan, 2013 [facility] [address] [id number] [address] [place] [address], [place] [address] Jan, [facility] [address] [id number] [address] [place] [address], [place] [address] Jan, [facility] [address] [id number] [address] [place] [address], [place] [address] Jan, [facility] [address] [id number] [address] [place] [address], [place] [address] Jan, [facility] [address] [id number] [address] [place] [address], [place] [address] Dec, [facility] [address] [id number] [address] [place] [address], [place] [address] Dec, [facility] [address] [id number] [address] [place] [address], [place] [address] Dec, [facility] [address] [id number] [address] [place] [address], [place] [address] Nov, [facility] [address] [id number] [address] [place] [address], [place] [address] Nov, [facility] [address] [id number] [address] [place] [id number] 05 Nov, 2012 [facility] [address] [id number] [address] [place] [address], [place] [address] 04 Nov, 2012 [facility] [address] [id number] [address] [place] [address], [place] [address] Oct, [facility] [address] [id number] [address] [place] [address], [place] [address] Oct, [facility] [address] [id number] [facility] [place] [address] Oct, [facility] [address] [id number] [address] [place] [address], [place] [address] Oct, [facility] [address] [id number] [address] [place] [address], [place] [address] Oct, [facility] [address] [id number] [address] [place] [address], [place] [address] Sep, [facility] [address] [id number] [address] [place] [address], [place] [address] Sep, [facility] [address] [id number] [address] [place] [address], [place] [address] Sep, [facility] [address] [id number] [address] [place] [address], [place] [address] Sep, [facility] [address] [id number] [address] [place] [address], [place] [address] Sep, [facility] [address] [id number] [address] [place] [address], [place] [address] Sep, [facility] [address] [id number] [address] [place] [address], [place] [address] Sep, [facility] [address] [id number] [address] [place] [address], [place] [address] Aug, [facility] [address] [id number] [address] [place] [address], [place] [address] Aug, [facility] [address] [id number] [address] [place] [address], [place] [address] July, [facility] [address] [id number] [address] [place] [address], [place] [address] Jun, [facility] [address] [id number] [address] [place] [address], [place] [address] Jun, [facility] [address] [id number] [address] [place] [address] [address] Jun, [facility] [address] [id number] [address] [place] [address], [place] [address] Apr, [facility] [address] [id number] [address] [place] [address], [place] [address] Apr, [facility] [address] [id number] [address] [place] [address], [place] [address] Apr, [facility] [address] [id number] [address] [place] [address], [place] [address] Mar, [facility] [address] [id number] [address] [place] [address], [place] [address] Mar, [facility] [address] [id number] [address] [place] [address], [place] [address] Mar, [facility] [address] [id number] [address] [place] [address], [place] [address] Mar, [facility] [address] [id number] [address] [place] [address], [place] [address] Mar, [facility] [address] [id number] [address] [place] [address], [place] [address] 14 Feb, 2012 [facility] [address] [id number] [address] [place] [address], [place] [address] 14 Feb, 2012 [facility] [address] [id number] [address] [place] [address], [place] [address] 13 Jan, 2012 [facility] [address] [id number] [address] [place] [address], [place] [address] Jan, [facility] [address] [id number] [address] [place] [address], [place] [address] Jan, [facility] [address] [id number] [address] [place] [address], [place] [address] 13 Jan, 2012 [facility] [address] [id number] [address] [place] [address], [place] [address] 07 Jan, 2012 [facility] [address] [id number] [address] [place] [address], [place] [address] Jan, [facility] [address] [id number] [address] [place] [address], [place] [address] Jan, [facility] [address] [id number] [address] [place] [address], [place] [address] Dec, [facility] [address] [id number] [address] [place] [address], [place] [address] Dec, [facility] [address] [id number] [address] [place] [address], [place] [address] Dec, [facility] [address] [id number] [address] [place] [address], [place] [address] Dec, [facility] [address] [id number] [address] [place] [address], [place] [address] Dec, [facility] [address] [id number] [address] [place] [address], [place] [address] Dec, [facility] [address] [id number] [address] [place] [address], [place] [address] Dec, [facility] [address] [id number] [address] [place] [address], [place] [address] Dec, [facility] [facility] [address] [id number] [address] [place] [address], [place] [address] Dec, [facility] [address] [id number] [address] [place] [address], [place] [address] Dec, [facility] [address] [id number] [address] [place] [address], [place] [address] Oct, [facility] [address] [id number] [address] [place] [address], [place] [address] Oct, [facility] [address] [id number] [address] [place] [address], [place] [address] Aug, [facility] [address] [id number] [address] [place] [address], [place] [address] Aug, [facility] [address] [id number] [address] [place] [address], [place] [address] July, [facility] [address] [id number] [address] [place] [address], [place] [id number] 17 Jun, 2011 [facility] [address] [id number] [address] [place] [address], [place] [address] Jun, [facility] [address] [id number] [address] [place] [address], [place] [address] May, [facility] [address] [id number] [address] [place] [address], [place] [address] Apr, [facility] [address] [id number] [address] [place] [address], [place] [address] Apr, [facility] [address] [id number] [address] [place] [address], [place] [address] Mar, [facility] [address] [id number] [address] [place] [address], [place] [address] Mar, [facility] [address] [id number] [address] [place] [address], [place] [id number] 19 Feb, 2011 [facility] [address] [id number] [address] [place] [address], [place] [address] 15 Feb, 2011 [facility] [address] [id number] [address] [place] [address], [place] [address] 13 Feb, 2011 [facility] [address] [id number] [address] [place] [address], [place] [address] 13 Feb, 2011 [facility] [address] [id number] [address] [place] [address], [place] [address] 11 Jan, 2011 [facility] [address] [id number] [address] [place] [address], [place] [address] 17 Dec, 2010 [facility] [address] [id number] [address] [place] [address], [place] [address] 08 Feb, 2010 [facility] [address] [id number] [address] [place] [phone] Feb, [facility] [address] [id number] [address] [place] [phone] Feb, [facility] [address] [id number] [address] [place] [phone] Feb, [facility] [address] [id number] [address] [place] [phone] Dec, [facility] [address] [id number] [address] [place] [id number] Dec, [facility] [address] [id number] [address] [place] [id number] Oct, [facility] [address] [id number] [address] [place] [phone] Jun, [facility] [address] [id number] [address] [place] [id number] Feb, [facility] [address] [id number] [address] [place] [phone] Feb, [facility] [address] [id number] [address] [place] [phone] Feb, [facility] [address] [id number] [address] [place] [phone] Dec, IMMUNIZATIONS No Known Immunizations SOCIAL HISTORY Never Assessed REASON FOR VISIT PLAN OF CARE VITAL SIGNS MEDICATIONS Unknown Medications RESULTS No Results PROCEDURES Procedure Date Ordered Result Body Site PROTHROMBIN TIME Feb 16, 2014 INSTRUCTIONS MEDICATIONS ADMINISTERED No Known Medications MEDICAL (GENERAL) HISTORY Type Description Date Medical History obesity Medical History Hematologic disorder factor clotting pro [place] Medical History DVT's Medical History Torn Rotator Cuff, repaired 09/23/17 Surgical History Lap Band 10/2012 Surgical History section 1985, 1987 Surgical History cholecystectomy Surgical History [place] Filter 06/2009 Surgical History Left leg exploratory surgery r/t clot 19 Surgical History left shoulder surgery 09/14/17 Surgical History lap band removed 12/2017 Surgical History gastic sleeve 01/2018 Surgical History Back surgery 2019 Hospitalization History Ruptured Ovarian Cyst with abd bleed ing 11/2009 Hospitalization History Broken Back 06/2018
--- OUTSIDE RECORDS SUMMARY | 2019-10-19 12:28 | XMS REPORT ---
Author Author KIANA Mary Jane RAMIREZ Organization 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 Active 454458042 Problem Pelvic pain R10.2 Active 32479508 Problem Peripheral edema R60.9 Active 271 736832 Problem Moderate episode of recurrent major depressive disorder F33.1 Active 020782692 Problem Presence of IVC filter Z95.828 Active 410065541 Problem Vitamin D deficiency E55.9 Active 56804519 Problem Generalized anxiety disorder F41.1 A ctive 480302742 Problem Excessive daytime sleepiness G47.19 A ctive 259393950714 Problem Gastroesophageal reflux disease, esophagitis pre sence not specified K21.9 Active 916204150 Problem Thyroid nodule E04.1 Active 81293 5005 Problem Morbid obesity E66.01 Active 13951 6002 ALLERGIES No Information ENCOUNTERS Encounter Location Date Diagnosis [facility] [address] [facility] [id number] [address] [place] [address] Nov, Thyroid nodule E04.1 [facility] [address] [facility] [id number] [address] [place] [address] Nov, Thyroid nodule E04.1 [facility] [address] [facility] [id number] [address] [place] [address] Nov, Thyroid nodule E04.1 [facility] [address] [facility] [id number] [address] [place] [address] Oct, Syncope, unspecified syncope type R55 and Encounter for weight management Z76.89 [facility] [address] [facility] [id number] [address] [place] [address] Oct, Morbid obesity E66.01 [facility] [address] [facility] [id number] [address] [place] [address] Oct, Hypertriglyceridemia E78.1 [facility] [address] [facility] [id number] [address] [place] [address] Oct, [facility] [address] [facility] [id number] [address] [place] [address] Oct, Hypertriglyceridemia E78.1 [facility] [place] [address] [facility] [id number] [address] [place] [address] Sep, Hypertriglyceridemia E78.1 a nd Vitamin D deficiency E55.9 [facility] [address] [facility] [id number] [address] [place] [address] Sep, [facility] [address] [facility] [id number] [address] [place] [address] Sep, Morbid obesity E66.01 ; Mode rate episode of recurrent major depressive disorder F33.1 ; Hypertriglyceridemia E78.1 and Vitamin D deficiency E55.9 [facility] [address] [facility] [id number] [address] [place] [address] Aug, [facility] [address] [facility] [id number] [address] [place] [address] July, [facility] [address] [facility] [id number] [address] [place] [address] July, [facility] [address] [facility] [id number] [address] [place] [address] Jun, [facility] [address] [facility] [id number] [address] [place] [address] Jun, [facility] [address] [id number] [address] [place] [address] Jun, Closed compression fracture of L3 lumbar vertebra with routine healing, subsequent encounter S32.030D and Drug-induced constipation K59.03 [facility] [address] [id number] [address] [place] [address] Jun, [facility] [address] [facility] [id number] [address] [place] [address] Jun, [facility] [address] [id number] [address] [place] [address] Apr, [facility] [address] [facility] [id number] [place] [address] Apr, Morbid obesity E66.01 [facility] [address] [facility] [id number] [place] [address] Apr, Morbid obesity E66.01 ; Hype rtriglyceridemia E78.1 ; Gastroesophageal reflux disease, esophagitis presence not specified K21.9 and Joint pain M25.50 [facility] [address] [facility] [id number] [address] [place] [address] Feb, [facility] [address] [facility] [id number] [address] [place] [address] Feb, [facility] [address] [facility] [id number] [address] [place] [address] Jan, Acute bacterial conjunctivit is H10.30 [facility] [address] [id number] [address] [place] [address] Dec, [facility] [address] [facility] [id number] [address] [place] [address] Dec, [facility] [address] [id number] [address] [place] [address] Nov, [facility] [address] [facility] [id number] [address] [place] [address] 07 Nov, 2017 Obstructive sleep apnea G47. 33 ; Morbid obesity E66.01 and Gastroesophageal reflux disease, esophagitis presence not specified K21.9 [facility] [address] [id number] [address] [place] [address] [id number] 06 Nov, 2017 Encounter for examination of eyes and vision without abnormal findings Z01.00 [facility] [address] [id number] [address] [place] [address] 31 Oct, 2017 Thyroid nodule E04.1 and Scr eening for breast cancer Z12.31 [facility] [address] [id number] [address] [place] [address] 23 Oct, 2017 History of DVT (deep vein th rombosis) Z86.718 ; Thyroid nodule E04.1 and Gastroesophageal reflux disease, esophagitis presence not specified K21.9 [facility] [address] [id number] [address] [place] [address] Oct, [facility] [address] [id number] [address] [place] [address] Sep, [facility] [address] [id number] [address] [place] [address] Aug, [facility] [address] [id number] [address] [place] [address] Aug, [facility] [address] [facility] [id number] [address] [place] [address] Aug, Acute pain of left shoulder M25.512 and Thyroid nodule E04.1 [facility] [address] [id number] [address] [place] [address] July, Superior glenoid labrum lesi on of left shoulder, subsequent encounter S43.432D [facility] [address] [facility] [id number] [address] [place] [address] Jun, History of DVT (deep vein th rombosis) Z86.718 [facility] [address] [id number] [address] [place] [address] Jun, History of DVT (deep vein th rombosis) Z86.718 [facility] [address] [id number] [address] [place] [address] Jun, Impingement syndrome, should er, left M75.42 [facility] [address] [id number] [address] [place] [address] May, Subacromial bursitis of left shoulder joint M75.52 [facility] [address] [id number] [address] [place] [address] May, [facility] [address] [id number] [address] [place] [address] May, Hypertriglyceridemia E78.1 ; [facility]DC (current) use of anticoagulants Z79.01 and Excessive daytime sleepiness G47.19 [facility] [address] [facility] [id number] [address] [place] [address] May, History of DVT (deep vein th rombosis) Z86.718 ; Generalized anxiety disorder F41.1 ; Hypertriglyceridemia E78.1 ; [facility]DC (current) use of anticoagulants Z79.01 ; Subacromial bursitis of left shoulder joint M75.52 and Excessive daytime sleepiness G47.19 [facility] [address] [id number] [address] [place] [address] May, [facility] [address] [id number] [address] [place] [address] May, [facility] (current) use of a nticoagulants Z79.01 [facility] [address] [id number] [address] [place] [address] Apr, 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 [address] [id number] [address] [place] [address] Apr, 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 [address] [id number] [address] [place] [id number] 13 Apr, 2017 [facility] (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 [address] [id number] [address] [place] [address] Apr, [facility] (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 [address] [id number] [address] [place] [address] Apr, [facility] (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 [address] [id number] [address] [place] [address] Apr, [facility]DC (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 [address] [id number] [address] [place] [address] Mar, [facility] (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 [address] [id number] [address] [place] [address] Mar, 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 [address] [facility] [id number] [address] [place] [address] Jan, History of DVT (deep vein th rombosis) Z86.718 [facility] [address] [id number] [address] [place] [address] Jan, Generalized anxiety disorder F41.1 and Peripheral edema R60.9 [facility] [address] [id number] [address] [place] [address] Nov, History of DVT (deep vein th rombosis) Z86.718 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 [address] [facility] [id number] [address] [place] [address] Oct, [facility] (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 [address] [id number] [address] [place] [address] Oct, Personal history of venous t hrombosis and embolism Z86.718 [facility] [address] [facility] [id number] [address] [place] [address] Sep, [facility] [address] [facility] [id number] [address] [place] [address] Sep, Personal history of venous t hrombosis and embolism Z86.718 [facility] [address] [facility] [id number] [address] [place] [address] Sep, [facility] (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 [address] [facility] [id number] [address] [place] [address] Sep, Generalized anxiety disorder F41.1 and History of DVT (deep vein thrombosis) Z86.718 [facility] [address] [facility] [id number] [address] [place] [address] Aug, History of DVT (deep vein th rombosis) Z86.718 ; Generalized anxiety disorder F41.1 ; [facility]DC (current) use of anticoagulants Z79.01 ; Pelvic pain R10.2 ; Hypertriglyceridemia E78.1 ; Excessive daytime sleepiness G47.19 ; Colon cancer screening Z12.11 ; Screening for breast cancer Z12.39 ; Peripheral edema R60.9 and Gastroesophageal reflux disease, esophagitis presence not specified K21.9 [place] [address] [place] [id number] [address] [place] [address] Aug, [place] [address] [place] [id number] [address] [place] [address] July, [place] [address] [place] [id number] [address] [place] [address] July, History of DVT (deep vein th rombosis) Z86.718 [place] [address] [facility] [id number] [address] [place] [address] Jun, Generalized anxiety disorder F41.1 [place] [address] [facility] [id number] [address] [place] [address] Jun, History of DVT (deep vein th rombosis) Z86.718 [place] [address] [place] [id number] [address] [place] [address] Jun, History of DVT (deep vein th rombosis) Z86.718 [facility] [address] [facility] [id number] [address] [place] [address] Jun, History of DVT (deep vein th rombosis) Z86.718 [facility] [address] [facility] [id number] [address] [place] [address] Jun, History of DVT (deep vein th rombosis) Z86.718 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 [address] [facility] [id number] [address] [place] [address] May, History of DVT (deep vein th rombosis) Z86.718 [facility] [address] [facility] [id number] [address] [place] [address] Apr, Bacterial conjunctivitis of left eye H10.9 and H/O motion sickness Z87.898 [facility] [address] [facility] [id number] [address] [place] [address] Apr, History of DVT (deep vein th rombosis) Z86.718 [facility] [address] [facility] [id number] [address] [place] [address] Apr, History of DVT (deep vein th rombosis) Z86.718 [place] [address] [facility] [id number] [address] [place] [address] Apr, History of DVT (deep vein th rombosis) Z86.718 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 [address] [id number] [address] [place] [address] Mar, [facility] [address] [id number] [address] [place] [address] Mar, termite technician (current) use of a nticoagulants Z79.01 [place] [address] [id number] [address] [place] [address] Mar, Hypertriglyceridemia E78.1 a nd [facility] (current) use of anticoagulants Z79.01 [place] [address] [id number] [address] [place] [address] Feb, termite technician (current) use of a nticoagulants Z79.01 [place] [address] [id number] [address] [place] [address] Feb, [facility] (current) use of a nticoagulants Z79.01 [place] [address] [id number] [address] [place] [address] Feb, termite technician (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) use of a nticoagulants Z79.01 [place] [address] [id number] [address] [place] [address] Dec, [place] [address] [id number] [address] [place] [address] Nov, [place] [address] [id number] [address] [place] [address] 13 Nov, 2015 History of DVT (deep vein th rombosis) Z86.718 ; Tremulousness R25.1 ; Generalized anxiety disorder F41.1 ; Peripheral edema R60.9 and Hypertriglyceridemia E78.1 [place] [address] [id number] [address] [place] [address] Oct, History of DVT (deep vein th rombosis) Z86.718 [facility] [address] [id number] [address] [place] [address] Oct, [facility] [address] [id number] [address] [place] [address] Sep, History of DVT (deep vein th rombosis) Z86.718 [facility] [address] [id number] [address] [place] [address] Sep, [facility] (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 [address] [id number] [address] [place] [address] July, 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 [address] [id number] [address] [place] [address] July, termite technician (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 [address] [facility] [id number] [address] [place] [address] Jun, termite technician (current) use of a nticoagulants Z79.01 [facility] [address] [facility] [id number] [address] [place] [address] Jun, Coccyx pain M53.3 ; Encounte r for therapeutic drug level monitoring Z51.81 and termite technician current use 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.01 [facility] [address] [id number] [address] [place] [address] May, Abnormal mammogram R92.8 [facility] [address] [id number] [address] [place] [address] May, [facility] [address] [facility] [id number] [address] [place] [address] May, Acute vaginitis N76.0 and En counter for other screening for malignant neoplasm of breast Z12.39 [place] [address] [facility] [id number] [address] [place] [address] Apr, [facility] [address] [id number] [address] [place] [address] Apr, [place] [address] [facility] [id number] [address] [place] [address] Apr, Peripheral edema R60.9 [place] [address] [id number] [address] [place] [address] Apr, [facility] (current) use of a nticoagulants Z79.01 [place] [address] [facility] [id number] [address] [place] [address] Apr, Peripheral edema R60.9 and L jose martin term (current) 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 Z79.01 [place] [address] [id number] [address] [place] [address] Apr, [facility] (current) use of a nticoagulants Z79.01 [place] [address] [address] [facility] [id number] [address] [place] [id number] Apr, [place] [address] [address] [facility] [id number] [address] [place] [id number] Apr, FDC (current) use of a nticoagulants Z79.01 [place] [address] [id number] [address] [place] [phone] Apr, Peripheral edema R60.9 [place] [address] [address] [facility] [id number] [address] [place] [id number] Mar, 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 technician (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 a nticoagulants Z79.01 [place] [address] [id number] [address] [place] [phone] Mar, FDC (current) use of a nticoagulants Z79.01 and Hypertriglyceridemia E78.1 [place] [address] [id number] [address] [place] [phone] Mar, [facility]DC (current) use of a nticoagulants Z79.01 [place] [address] [id number] [address] [place] [phone] Mar, [facility]DC (current) use of a nticoagulants Z79.01 [place] [address] [id number] [address] [place] [phone] Mar, [place] [address] [id number] [address] [place] [phone] Mar, termite technician (current) use of a nticoagulants Z79.01 ; Hypertriglyceridemia E78.1 ; Personal history of venous thrombosis and embolism Z86.718 and Lump R22.9 [place] [address] [id number] [address] [place] [phone] Mar, Personal history of venous t hrombosis and embolism Z86.718 [place] [address] [id number] [address] [place] [phone] Mar, Personal history of venous t hrombosis and embolism Z86.718 [place] [address] [id number] [address] [place] [phone] Mar, [place] [address] [id number] [address] [place] [phone] Dec, Personal history of venous t hrombosis and embolism Z86.718 [place] [address] [id number] [address] [place] [phone] Dec, Personal history of venous t hrombosis and embolism V12.51 [place] [address] [id number] [address] [place] [phone] Nov, Personal history of venous t hrombosis and embolism V12.51 [place] [address] [id number] [address] [place] [phone] Nov, Personal history of venous t hrombosis and embolism V12.51 [facility] [address] [id number] [address] [place] [phone] Nov, Personal history of venous t hrombosis and embolism V12.51 [facility] [address] [id number] [address] [place] [phone] Nov, Personal history of venous t hrombosis and embolism V12.51 [facility] [address] [id number] [address] [place] [phone] Nov, [facility] [facility] [address] [id number] [address] [place] [address] Oct, Dysuria 788.1 [facility] [address] [id number] [address] [place] [address] Oct, Personal history of venous t hrombosis and embolism V12.51 [facility] [address] [id number] [address] [place] [address] Oct, [facility] [address] [id number] [address] [place] [address] Oct, Personal history of venous t hrombosis and embolism V12.51 [facility] [address] [id number] [address] [place] [address] Sep, Personal history of venous t hrombosis and embolism V12.51 [facility] [address] [id number] [address] [place] [address] Sep, Personal history of venous t hrombosis and embolism V12.51 [facility] [address] [id number] [address] [place] [address] Aug, Personal history of venous t hrombosis and embolism V12.51 [facility] [address] [id number] [address] [place] [address] Aug, Personal history of venous t hrombosis and embolism V12.51 [facility] [address] [id number] [address] [place] [address] 15 Aug, 2014 Personal history of venous t hrombosis and embolism V12.51 [facility] [address] [id number] [address] [place] [address] 08 Jul, 2014 Generalized anxiety disorder 300.02 ; Abdominal pain, left lower quadrant 789.04 and Personal history of venous thrombosis and embolism V12.51 [facility] [address] [id number] [address] [place] [address] 14 Jun, 2014 [facility] [address] [id number] [address] [place] [address] Jun, [facility] [address] [id number] [address] [place] [address] May, [facility] [address] [id number] [address] [place] [address] May, [facility] [address] [id number] [address] [place] [address] May, [facility] [address] [id number] [address] [place] [address] May, [facility] [address] [id number] [address] [place] [address] May, [facility] [address] [id number] [address] [place] [address] May, [facility] [address] [id number] [address] [place] [address] May, [facility] [address] [id number] [address] [place] [address] May, [facility] [address] [id number] [address] [place] [address] Apr, [facility] [address] [id number] [address] [place] [address] Apr, [facility] [address] [id number] [address] [place] [address], [place] [address] Apr, [facility] [address] [id number] [address] [place] [address], [place] [address] Apr, [facility] [address] [id number] [address] [place] [address], [place] [address] Apr, [facility] [address] [id number] [address] [place] [address], [place] [address] Mar, [facility] [address] [id number] [address] [place] [address], [place] [address] Mar, [facility] [address] [id number] [address] [place] [address], [place] [address] Mar, [facility] [address] [id number] [address] [place] [address], [place] [address] Mar, [facility] [address] [id number] [address] [place] [address], [place] [address] Mar, [facility] [address] [id number] [address] [place] [address], [place] [address] Mar, [facility] [address] [id number] [address] [place] [address], [place] [address] Feb, [facility] [address] [id number] [address] [place] [address], [place] [address] Feb, [facility] [address] [id number] [address] [place] [address], [place] [address] Feb, [facility] [address] [id number] [address] [place] [address], [place] [address] Feb, [facility] [address] [id number] [address] [place] [address], [place] [address] Feb, [facility] [address] [id number] [address] [place] [address], [place] [address] Feb, [facility] [address] [id number] [address] [place] [address], [place] [address] Feb, [facility] [address] [id number] [address] [place] [address], [place] [address] Feb, [facility] [address] [id number] [address] [place] [address], [place] [address] Feb, [facility] [address] [id number] [address] [place] [address], [place] [address] Feb, [facility] [address] [id number] [address] [place] [address], [place] [address] Jan, [facility] [address] [id number] [address] [place] [address], [place] [address] Jan, [facility] [address] [id number] [address] [place] [address], [place] [address] Jan, [facility] [address] [id number] [address] [place] [address], [place] [address] Jan, [facility] [address] [id number] [address] [place] [address], [place] [address] Jan, [facility] [address] [id number] [address] [place] [address], [place] [address] Jan, [facility] [address] [id number] [address] [place] [address], [place] [address] Jan, [facility] [address] [id number] [address] [place] [address], [place] [address] Jan, [facility] [address] [id number] [address] [place] [address], [place] [address] Jan, [facility] [address] [id number] [address] [place] [address], [place] [address] Jan, [facility] [address] [id number] [address] [place] [address], [place] [address] Dec, [facility] [address] [id number] [address] [place] [address], [place] [address] Dec, [facility] [address] [id number] [address] [place] [address], [place] [address] Dec, [facility] [address] [id number] [address] [place] [address], [place] [address] Dec, [facility] [address] [id number] [address] [place] [address], [place] [address] Dec, [facility] [address] [id number] [address] [place] [address], [place] [address] Dec, [facility] [address] [id number] [address] [place] [address], [place] [address] Dec, [facility] [address] [id number] [address] [place] [address], [place] [address] Dec, [facility] [address] [id number] [address] [place] [address], [place] [address] Dec, [facility] [address] [id number] [address] [place] [address], [place] [address] Dec, [facility] [address] [id number] [address] [place] [address], [place] [address] Dec, [facility] [address] [id number] [address] [place] [address], [place] [address] Dec, [facility] [address] [id number] [address] [place] [address], [place] [address] Dec, [facility] [address] [id number] [address] [place] [address] Dec, [facility] [address] [id number] [address] [place] [address] Dec, [facility] [address] [id number] [address] [place] [address], [place] [address] Nov, [facility] [address] [id number] [address] [place] [address], [place] [address] Nov, [facility] [address] [id number] [address] [place] [address], [place] [address] Nov, [facility] [address] [id number] [facility] [address] 26 Sep, 2013 [facility] [address] [id number] [facility] [place] [address] 24 Sep, 2013 [facility] [address] [id number] [facility] [place] [address] 24 Sep, 2013 [facility] [address] [id number] [address] [place] [address], [place] [address] 23 Sep, 2013 [facility] [address] [id number] [address] [place] [address], [place] [address] 23 Sep, 2013 [facility] [address] [id number] [address] [place] [address], [place] [address] 18 Sep, 2013 [facility] [address] [id number] [address] [place] [address], [place] [address] 18 Sep, 2013 [facility] [address] [id number] [address] [place] [address], [place] [address] 17 Sep, 2013 [facility] [address] [id number] [address] [place] [address], [place] [address] 17 Sep, 2013 [facility] [address] [id number] [address] [place] [address], [place] [address] 11 Nov, 2013 [facility] [address] [id number] [address] [place] [address], [place] [address] 11 Nov, 2013 [facility] [address] [id number] [address] [place] [address], [place] [address] 10 Nov, 2013 [facility] [address] [id number] [address] [place] [address], [place] [address] 10 Nov, 2013 [facility] [address] [id number] [address] [place] [address], [place] [address] 08 Nov, 2013 [facility] [address] [id number] [address] [place] [address], [place] [address] 08 Nov, 2013 [facility] [address] [id number] [address] [place] [address], [place] [address] Sep, [facility] [address] [id number] [facility] [place] [address] Sep, [facility] [address] [id number] [facility] [place] [address] Sep, [facility] [address] [id number] [facility] [place] [address] Sep, [facility] [address] [id number] [facility] [place] [address] Sep, [facility] [address] [id number] [facility] [place] [address] Sep, [facility] [address] [id number] [address] [place] [address], [place] [address] Aug, [facility] [address] [id number] [address] [place] [address], [place] [address] Aug, [facility] [address] [id number] [address] [place] [address], [place] [address] Aug, [facility] [address] [id number] [address] [place] [address], [place] [address] Aug, [facility] [address] [id number] [address] [place] [address], [place] [address] Aug, [facility] [address] [id number] [address] [place] [address], [place] [address] Aug, [facility] [address] [id number] [address] [place] [address], [place] [address] Aug, [facility] [address] [id number] [address] [place] [address], [place] [address] Aug, [facility] [address] [id number] [address] [place] [address], [place] [address] Aug, [facility] [address] [id number] [address] [place] [address], [place] [address] Aug, [facility] [address] [id number] [address] [place] [address], [place] [address] Aug, [facility] [address] [id number] [address] [place] [address], [place] [address] July, [facility] [address] [id number] [address] [place] [address], [place] [address] July, [facility] [address] [id number] [address] [place] [address], [place] [address] Jun, [facility] [address] [id number] [address] [place] [address], [place] [address] Jun, [facility] [address] [id number] [address] [place] [address], [place] [address] Jun, [facility] [address] [id number] [address] [place] [address], [place] [address] Jun, [facility] [address] [id number] [address] [place] [address], [place] [address] Jun, [facility] [address] [id number] [address] [place] [address], [place] [address] Jun, [facility] [address] [id number] [address] [place] [address], [place] [address] Jun, [facility] [address] [id number] [address] [place] [address], [place] [address] Jun, [facility] [address] [id number] [address] [place] [address], [place] [address] Jun, [facility] [address] [id number] [address] [place] [address], [place] [address] Jun, [facility] [address] [id number] [address] [place] [address], [place] [address] Jun, [facility] [address] [id number] [address] [place] [address], [place] [address] Jun, [facility] [address] [id number] [address] [place] [address], [place] [address] May, [facility] [address] [id number] [facility] [address] May, [facility] [address] [id number] [facility] [place] [address] May, [facility] [address] [id number] [facility] [place] [address] May, [facility] [address] [id number] [address] [place] [address], [place] [address] May, [facility] [address] [id number] [address] [place] [address], [place] [address] May, [facility] [address] [id number] [address] [place] [address], [place] [address] May, [facility] [address] [id number] [address] [place] [address], [place] [address] May, [facility] [address] [id number] [address] [place] [address], [place] [address] May, [facility] [address] [id number] [address] [place] [address], [place] [address] May, [facility] [address] [id number] [address] [place] [address], [place] [address] May, [facility] [address] [id number] [address] [place] [address], [place] [address] May, [facility] [address] [id number] [address] [place] [address], [place] [address] Apr, [facility] [address] [id number] [address] [place] [address], [place] [address] Apr, [facility] [address] [id number] [address] [place] [address], [place] [address] Apr, [facility] [address] [id number] [address] [place] [address], [place] [address] Apr, [facility] [address] [id number] [address] [place] [address], [place] [address] Apr, [facility] [address] [id number] [address] [place] [address], [place] [address] Apr, [facility] [address] [id number] [address] [place] [address], [place] [address] Apr, [facility] [address] [id number] [address] [place] [address], [place] [address] Apr, [facility] [address] [id number] [address] [place] [address], [place] [address] Apr, [facility] [address] [id number] [address] [place] [address], [place] [address] Apr, [facility] [address] [id number] [address] [place] [address], [place] [address] Apr, [facility] [address] [id number] [address] [place] [address], [place] [address] Apr, [facility] [address] [id number] [address] [place] [address], [place] [address] Apr, [facility] [address] [id number] [address] [place] [address], [place] [address] Apr, [facility] [address] [id number] [address] [place] [address], [place] [address] Apr, [facility] [address] [id number] [address] [place] [address], [place] [address] Apr, [facility] [address] [id number] [address] [place] [address], [place] [address] Apr, [facility] [address] [id number] [address] [place] [address], [place] [address] Jan, [facility] [address] [id number] [address] [place] [address], [place] [address] Jan, [facility] [address] [id number] [address] [place] [address], [place] [address] Jan, [facility] [address] [id number] [address] [place] [address], [place] [address] Jan, [facility] [address] [id number] [address] [place] [address], [place] [address] Jan, [facility] [address] [id number] [address] [place] [address], [place] [address] Jan, [facility] [address] [id number] [address] [place] [address], [place] [address] Jan, [facility] [address] [id number] [address] [place] [address], [place] [address] Dec, [facility] [address] [id number] [address] [place] [address], [place] [address] Dec, [facility] [address] [id number] [address] [place] [address], [place] [address] Dec, [facility] [address] [id number] [address] [place] [address], [place] [address] Nov, [facility] [address] [id number] [address] [place] [address], [place] [address] Nov, [facility] [address] [id number] [address] [place] [address], [place] [address] 05 Nov, 2012 [facility] [address] [id number] [address] [place] [address], [place] [address] Nov, [facility] [address] [id number] [address] [place] [address], [place] [address] Oct, [facility] [address] [id number] [address] [place] [address], [place] [address] Oct, [facility] [address] [id number] [address] [place] [address], [place] [address] Oct, [facility] [address] [id number] [address] [place] [address], [place] [address] Oct, [facility] [address] [id number] [address] [place] [address], [place] [address] Oct, [facility] [address] [id number] [address] [place] [address], [place] [address] Sep, [facility] [address] [id number] [address] [place] [address], [place] [address] Sep, [facility] [address] [id number] [address] [place] [address], [place] [address] Sep, [facility] [address] [id number] [address] [place] [address], [place] [address] Sep, [facility] [address] [id number] [address] [place] [address], [place] [address] Sep, [facility] [address] [id number] [address] [place] [address], [place] [address] Sep, [facility] [address] [id number] [address] [place] [address], [place] [address] Sep, [facility] [address] [id number] [address] [place] [address], [place] [address] Aug, [facility] [address] [id number] [address] [place] [address], [place] [address] Aug, [facility] [address] [id number] [address] [place] [address], [place] [address] July, [facility] [address] [id number] [address] [place] [address], [place] [address] Jun, [facility] [address] [id number] [address] [place] [address], [place] [address] Jun, [facility] [address] [id number] [address] [place] [address], [place] [address] Jun, [facility] [address] [id number] [address] [place] [address], [place] [address] Apr, [facility] [address] [id number] [address] [place] [address], [place] [address] Apr, [facility] [address] [id number] [address] [place] [address], [place] [address] Apr, [facility] [address] [id number] [address] [place] [address], [place] [address] Mar, [facility] [address] [id number] [address] [place] [address], [place] [address] Mar, [facility] [address] [id number] [address] [place] [address], [place] [address] 2012 [facility] [address] [id number] [address] [place] [address], [place] [address] Mar, [facility] [address] [id number] [address] [place] [address], [place] [address] Mar, [facility] [address] [id number] [address] [place] [address], [place] [address] 14 Feb, 2012 [facility] [address] [id number] [address] [place] [address], [place] [address] 14 Feb, 2012 [facility] [address] [id number] [address] [place] [address], [place] [address] Jan, [facility] [address] [id number] [address] [place] [address], [place] [address] Jan, [facility] [address] [id number] [address] [place] [address], [place] [address] 13 Jan, 2012 [facility] [address] [id number] [address] [place] [address], [place] [address] 13 Jan, 2012 [facility] [address] [id number] [address] [place] [address], [place] [address] Jan, [facility] [address] [id number] [address] [place] [address], [place] [address] 07 Jan, [address] [facility] [address] [id number] [address] [place] [address], [place] [address] 06 Jan, 2012 [facility] [address] [id number] [address] [place] [address], [place] [address] Dec, [facility] [address] [id number] [address] [place] [address], [place] [address] Dec, [facility] [address] [id number] [address] [place] [address], [place] [address] Dec, [facility] [address] [id number] [address] [place] [address], [place] [address] Dec, [facility] [address] [id number] [address] [place] [address], [place] [address] Dec, [facility] [address] [id number] [address] [place] [address], [place] [address] Dec, [facility] [address] [id number] [address] [place] [address], [place] [address] Dec, [facility] [address] [id number] [address] [place] [address], [place] [address] Dec, [facility] [address] [id number] [address] [place] [address], [place] [address] Dec, [facility] [address] [id number] [address] [place] [address], [place] [address] Dec, [facility] [address] [id number] [address] [place] [address], [place] [address] Oct, [facility] [address] [id number] [address] [place] [address], [place] [id number] Oct, [facility] [address] [id number] [address] [place] [phone] Aug, [facility] [address] [id number] [address] [place] [address], [place] [id number] Aug, [facility] [address] [id number] [address] [place] [phone] July, [facility] [address] [id number] [address] [place] [address], [place] [phone] Jun, [facility] [address] [id number] [address] [place] [address], [place] [id number] Jun, [facility] [address] [id number] [address] [place] [address], [place] [id number] May, [facility] [address] [id number] [address] [place] [address], [place] [id number] Apr, [facility] [address] [id number] [address] [place] [address], [place] [address] Apr, [facility] [address] [id number] [address] [place] [address], [place] [id number] Mar, [facility] [address] [id number] [address] [place] [address], [place] [phone] Mar, [facility] [address] [id number] [address] [place] [address], [place] [address] Feb, [facility] [address] [id number] [address] [place] [address], [place] [id number] 15 Feb, 2011 [facility] [address] [id number] [address] [place] [address], [place] [phone] Feb, [facility] [address] [id number] [address] [place] [address], [place] [address] Feb, [facility] [address] [id number] [address] [place] [address], [place] [address] Jan, [facility] [address] [id number] [address] [place] [address], [place] [address] Dec, [facility] [address] [id number] [address] [place] [address], [place] [address] Feb, [facility] [address] [id number] [address] [place] [address], [place] [address] Feb, [facility] [address] [id number] [address] [place] [address], [place] [id number] Feb, [facility] [address] [id number] [address] [place] [address], [place] [address] Feb, [facility] [address] [id number] [address] [place] [phone] Dec, [facility] [address] [id number] [address] [place] [phone] Dec, [facility] [address] [id number] [address] [place] [phone] Oct, [facility] [address] [id number] [address] [place] [phone] Jun, [facility] [address] [id number] [address] [place] [phone] Feb, [facility] [address] [id number] [address] [place] [phone] Feb, [facility] [address] [id number] [address] [place] [phone] Feb, [facility] [address] [id number] [address] [place] [phone] Dec, IMMUNIZATIONS No Known Immunizations SOCIAL HISTORY Never Assessed REASON FOR VISIT PLAN OF CARE VITAL SIGNS MEDICATIONS Unknown Medications RESULTS No Results PROCEDURES Procedure Date Ordered Result Body Site PROTHROMBIN TIME Apr 18, 2014 INSTRUCTIONS MEDICATIONS ADMINISTERED No Known Medications MEDICAL (GENERAL) HISTORY Type Description Date Medical History obesity Medical History Hematologic disorder factor clotting pro [place] Medical History DVT's Medical History Torn Rotator Cuff, repaired 09/23/17 Surgical History Lap Band 10/2012 Surgical History section 1985, 1987 Surgical History cholecystectomy Surgical History [place] Filter 06/2009 Surgical History Left leg exploratory surgery r/t clot Surgical History left shoulder surgery 09/14/17 Surgical History lap band removed 12/2017 Surgical History gastic sleeve 01/2018 Surgical History Back surgery 2019 Hospitalization History Ruptured Ovarian Cyst with abd bleed ing 11/2009 Hospitalization History Broken Back 06/2018
--- OUTSIDE RECORDS SUMMARY | 2019-10-19 12:28 | XMS REPORT ---
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 Active 022328174 Problem Hypertriglyceridemia E78.1 Active 007891280 Problem 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 Active 512025769 Problem Pelvic pain R10.2 Active 73101079 Problem Peripheral edema R60.9 Active 271 838726 Problem Moderate episode of recurrent major depressive disorder F33.1 Active 255875196 Problem Presence of IVC filter Z95.828 Active 058130589 Problem Vitamin D deficiency E55.9 Active 10219867 Problem Generalized anxiety disorder F41.1 A ctive 889717647 Problem Excessive daytime sleepiness G47.19 A ctive 909894439040 Problem Gastroesophageal reflux disease, esophagitis pre sence not specified K21.9 Active 339644493 Problem Thyroid nodule E04.1 Active 58167 5005 Problem Morbid obesity E66.01 Active 30508 6002 ALLERGIES No Information ENCOUNTERS Encounter Location Date Diagnosis [facility] [address] [facility] [id number] [address] [place] [phone] Nov, Thyroid nodule E04.1 [facility] [address] [facility] [place] [id number] [address] [place] [phone] Nov, Thyroid nodule E04.1 [facility] [address] [facility] [place] [id number] [address] [place] [phone] Nov, Thyroid nodule E04.1 [facility] [address] [facility] [place] [id number] [address] [place] [phone] Oct, Syncope, unspecified syncope type R55 and Encounter for weight management Z76.89 [facility] [address] [facility] [place] [id number] [address] [place] [phone] Oct, Morbid obesity E66.01 [facility] [address] [facility] [place] [id number] [address] [place] [phone] Oct, Hypertriglyceridemia E78.1 [facility] [address] [facility] [place] [id number] [address] [place] [phone] Oct, [facility] [address] [facility] [place] [id number] [address] [place] [phone] Oct, Hypertriglyceridemia E78.1 [place] [address] [facility] [place] [id number] [address] [place] [phone] Sep, Hypertriglyceridemia E78.1 a nd Vitamin D deficiency E55.9 [facility] [address] [facility] [place] [id number] [address] [place] [phone] Sep, [place] [address] [facility] [place] [id number] [address] [place] [address] Sep, Morbid obesity E66.01 ; Mode rate episode of recurrent major depressive disorder F33.1 ; Hypertriglyceridemia E78.1 and Vitamin D deficiency E55.9 [place] [address] [facility] [place] [id number] [address] [place] [phone] Aug, [facility] [address] [facility] [place] [id number] [address] [place] [phone] July, [facility] [address] [facility] [id number] [address] [place] [phone] July, [facility] [address] [facility] [id number] [address] [place] [phone] Jun, [facility] [address] [facility] [id number] [address] [place] [phone] Jun, [facility] [address] [id number] [address] [place] [phone] Jun, Closed compression fracture of L3 lumbar vertebra with routine healing, subsequent encounter S32.030D and Drug-induced constipation K59.03 [facility] [address] [id number] [address] [place] [phone] Jun, [facility] [address] [facility] [place] [id number] [address] [place] [phone] Jun, [facility] [address] [id number] [address] [place] [phone] Apr, [facility] [address] [facility] [place] [id number] [place] [phone] Apr, Morbid obesity E66.01 [facility] [address] [facility] [id number] [place] [phone] Apr, Morbid obesity E66.01 ; Hype rtriglyceridemia E78.1 ; Gastroesophageal reflux disease, esophagitis presence not specified K21.9 and Joint pain M25.50 [facility] [address] [facility] [id number] [address] [place] [phone] Feb, [facility] [address] [facility] [place] [id number] [address] [place] [phone] Feb, [facility] [address] [facility] [id number] [address] [place] [phone] Jan, Acute bacterial conjunctivit is H10.30 [facility] [address] [id number] [address] [place] [phone] Dec, [facility] [address] [facility] [place] [id number] [address] [place] [phone] Dec, [facility] [address] [id number] [address] [place] [phone] Nov, [facility] [address] [facility] [place] [id number] [address] [place] [phone] 07 Nov, 2017 Obstructive sleep apnea G47. 33 ; Morbid obesity E66.01 and Gastroesophageal reflux disease, esophagitis presence not specified K21.9 [facility] [address] [id number] [address] [place] [address] [id number] 06 Nov, 2017 Encounter for examination of eyes and vision without abnormal findings Z01.00 [facility] [address] [id number] [address] [place] [phone] 31 Oct, 2017 Thyroid nodule E04.1 and Scr eening for breast cancer Z12.31 [facility] [address] [id number] [address] [place] [phone] 23 Oct, 2017 History of DVT (deep vein th rombosis) Z86.718 ; Thyroid nodule E04.1 and Gastroesophageal reflux disease, esophagitis presence not specified K21.9 [facility] [address] [id number] [address] [place] [phone] Oct, [facility] [address] [id number] [address] [place] [phone] Sep, [facility] [address] [id number] [address] [place] [phone] Aug, [facility] [address] [id number] [address] [place] [phone] Aug, [facility] [address] [facility] [place] [id number] [address] [place] [phone] Aug, Acute pain of left shoulder M25.512 and Thyroid nodule E04.1 [facility] [address] [id number] [address] [place] [phone] July, Superior glenoid labrum lesi on of left shoulder, subsequent encounter S43.432D [facility] [address] [facility] [place] [id number] [address] [place] [phone] Jun, History of DVT (deep vein th rombosis) Z86.718 [facility] [address] [id number] [address] [place] [phone] Jun, History of DVT (deep vein th rombosis) Z86.718 [facility] [address] [id number] [address] [place] [phone] Jun, Impingement syndrome, should er, left M75.42 [facility] [address] [id number] [address] [place] [phone] May, Subacromial bursitis of left shoulder joint M75.52 [place] [address] [id number] [address] [place] [phone] May, [place] [address] [id number] [address] [place] [phone] May, Hypertriglyceridemia E78.1 ; long-term (current) 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 Z79.01 and Excessive daytime sleepiness G47.19 [place] [address] [facility] [place] [id number] [address] [place] [phone] May, History of DVT (deep vein th rombosis) Z86.718 ; Generalized anxiety disorder F41.1 ; Hypertriglyceridemia E78.1 ; long-term (current) 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 Z79.01 ; Subacromial bursitis of left shoulder joint M75.52 and Excessive daytime sleepiness G47.19 [place] [address] [id number] [address] [place] [phone] May, [place] [address] [id number] [address] [place] [phone] May, long-term (current) 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 Z79.01 [place] [address] [id number] [address] [place] [phone] Apr, 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 [place] [address] [id number] [address] [place] [phone] Apr, long-term (current) 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 Z79.01 [place] [address] [id number] [address] [place] [phone] Apr, 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 [facility] [address] [id number] [address] [place] [phone] Apr, [facility] [address] [id number] [address] [place] [phone] Apr, 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 [facility] [address] [id number] [address] [place] [phone] 13 Apr, 2017 long-term (current) 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 Z79.01 [facility] [address] [id number] [address] [place] [phone] Apr, long-term (current) 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 Z79.01 [facility] [address] [id number] [address] [place] [phone] Apr, long-term (current) 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 Z79.01 [facility] [address] [id number] [address] [place] [phone] Apr, 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 [facility] [address] [id number] [address] [place] [phone] Apr, long-term (current) 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 Z79.01 [facility] [address] [id number] [address] [place] [phone] Mar, long-term (current) 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 Z79.01 [facility] [address] [id number] [address] [place] [phone] Mar, [facility] [address] [facility] [place] [id number] [address] [place] [phone] Mar, 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 [facility] [address] [id number] [address] [place] [address] [id number] Jan, Dental examination Z01.20 [facility] [address] [id number] [address] [place] [address] [id number] Jan, [facility] [address] [facility] [place] [id number] [address] [place] [phone] Jan, 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 [facility] [address] [facility] [place] [id number] [address] [place] [phone] Jan, History of DVT (deep vein th rombosis) Z86.718 [facility] [address] [id number] [address] [place] [phone] Jan, Generalized anxiety disorder F41.1 and Peripheral edema R60.9 [facility] [address] [id number] [address] [place] [phone] Nov, History of DVT (deep vein th rombosis) Z86.718 [facility] [address] [id number] [address] [place] [phone] Nov, 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 [facility] [address] [id number] [address] [place] [phone] Nov, Acute non-recurrent maxillar y sinusitis J01.00 [facility] [address] [facility] [place] [id number] [address] [place] [phone] Oct, long-term (current) 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 Z79.01 [facility] [address] [id number] [address] [place] [phone] Oct, Personal history of venous t hrombosis and embolism Z86.718 [facility] [address] [facility] [place] [id number] [address] [place] [phone] Sep, [facility] [address] [facility] [place] [id number] [address] [place] [phone] Sep, Personal history of venous t hrombosis and embolism Z86.718 [facility] [address] [facility] [place] [id number] [address] [place] [phone] Sep, long-term (current) 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 Z79.01 [facility] [address] [facility] [place] [id number] [address] [place] [phone] Sep, 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 [facility] [address] [facility] [place] [id number] [address] [place] [phone] Sep, Generalized anxiety disorder F41.1 and History of DVT (deep vein thrombosis) Z86.718 [place] [address] [facility] [place] [place] [id number] [address] [place] [phone] Aug, History of DVT (deep vein th rombosis) Z86.718 ; Generalized anxiety disorder F41.1 ; long-term (current) 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 Z79.01 ; Pelvic pain R10.2 ; Hypertriglyceridemia E78.1 ; Excessive daytime sleepiness G47.19 ; Colon cancer screening Z12.11 ; Screening for breast cancer Z12.39 ; Peripheral edema R60.9 and Gastroesophageal reflux disease, esophagitis presence not specified K21.9 [place] [address] [place] [id number] [address] [place] [phone] Aug, [place] [address] [place] [id number] [address] [place] [phone] July, [place] [address] [place] [id number] [address] [place] [phone] July, History of DVT (deep vein th rombosis) Z86.718 [place] [address] [facility] [place] [id number] [address] [place] [phone] Jun, Generalized anxiety disorder F41.1 [place] [address] [facility] [place] [id number] [address] [place] [phone] Jun, History of DVT (deep vein th rombosis) Z86.718 [place] [address] [place] [id number] [address] [place] [phone] Jun, History of DVT (deep vein th rombosis) Z86.718 [facility] [address] [facility] [place] [id number] [address] [place] [phone] Jun, History of DVT (deep vein th rombosis) Z86.718 [facility] [address] [facility] [place] [place] [id number] [address] [place] [phone] Jun, History of DVT (deep vein th rombosis) Z86.718 [facility] [address] [facility] [place] [id number] [address] [place] [phone] May, History of DVT (deep vein th rombosis) Z86.718 [place] [address] [facility] [place] [id number] [address] [place] [phone] May, 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 [place] [address] [place] [id number] [address] [place] [phone] May, 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 [facility] [address] [facility] [place] [id number] [address] [place] [phone] May, History of DVT (deep vein th rombosis) Z86.718 [facility] [address] [facility] [place] [id number] [address] [place] [phone] Apr, Bacterial conjunctivitis of left eye H10.9 and H/O motion sickness Z87.898 [facility] [address] [facility] [id number] [address] [place] [phone] Apr, History of DVT (deep vein th rombosis) Z86.718 [facility] [address] [facility] [id number] [address] [place] [phone] Apr, History of DVT (deep vein th rombosis) Z86.718 [place] [address] [facility] [id number] [address] [place] [phone] Apr, History of DVT (deep vein th rombosis) Z86.718 [facility] [address] [id number] [address] [place] [phone] 14 Apr, 2016 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 [facility] [address] [id number] [address] [place] [phone] Mar, [facility] [address] [id number] [address] [place] [phone] Mar, 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 [place] [address] [id number] [address] [place] [phone] Mar, Hypertriglyceridemia E78.1 a nd long-term (current) 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 Z79.01 [place] [address] [id number] [address] [place] [phone] Feb, 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 [place] [address] [id number] [address] [place] [phone] Feb, long-term (current) 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 Z79.01 [place] [address] [id number] [address] [place] [phone] Feb, 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 [place] [address] [id number] [address] [place] [phone] Dec, [place] [address] [id number] [address] [place] [phone] Nov, [place] [address] [id number] [address] [place] [phone] 13 Nov, 2015 History of DVT (deep vein th rombosis) Z86.718 ; Tremulousness R25.1 ; Generalized anxiety disorder F41.1 ; Peripheral edema R60.9 and Hypertriglyceridemia E78.1 [place] [address] [id number] [address] [place] [phone] Oct, History of DVT (deep vein th rombosis) Z86.718 [facility] [address] [id number] [address] [place] [phone] Oct, [facility] [address] [id number] [address] [place] [phone] Sep, History of DVT (deep vein th rombosis) Z86.718 [facility] [address] [id number] [address] [place] [phone] Sep, long-term (current) 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 Z79.01 [facility] [address] [id number] [address] [place] [phone] July, [facility] [address] [id number] [address] [place] [phone] July, 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 [facility] [address] [id number] [address] [place] [phone] July, 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 [facility] [address] [facility] [id number] [address] [place] [phone] Jun, 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 [facility] [address] [facility] [id number] [address] [place] [phone] Jun, Coccyx pain M53.3 ; Encounte r for therapeutic drug level monitoring Z51.81 and 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 current use 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.01 [facility] [address] [id number] [address] [place] [phone] May, Abnormal mammogram R92.8 [facility] [address] [id number] [address] [place] [phone] May, [facility] [address] [facility] [id number] [address] [place] [phone] May, Acute vaginitis N76.0 and En counter for other screening for malignant neoplasm of breast Z12.39 [place] [address] [facility] [id number] [address] [place] [phone] Apr, [facility] [address] [id number] [address] [place] [phone] Apr, [place] [address] [facility] [id number] [address] [place] [phone] Apr, Peripheral edema R60.9 [place] [address] [id number] [address] [place] [address] Apr, long-term (current) 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 Z79.01 [place] [address] [facility] [id number] [address] [place] [phone] Apr, Peripheral edema R60.9 and L jose martin term (current) 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 Z79.01 [place] [address] [id number] [address] [place] [phone] Apr, long-term (current) 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 Z79.01 [place] [address] [facility] [id number] [address] [place] [phone] Apr, [place] [address] [facility] [id number] [address] [place] [phone] Apr, long-term (current) 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 Z79.01 [place] [address] [id number] [address] [place] [phone] Apr, Peripheral edema R60.9 [place] [address] [facility] [id number] [address] [place] [phone] Mar, 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 [place] [address] [id number] [address] [place] [phone] Mar, long-term (current) 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 Z79.01 and Hypertriglyceridemia E78.1 [place] [address] [id number] [address] [place] [phone] Mar, long-term (current) 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 Z79.01 [place] [id number] [id number] [address] [place] [phone] Mar, long-term (current) 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 Z79.01 [place] [address] [id number] [address] [place] [phone] Mar, [place] [address] [id number] [address] [place] [phone] Mar, 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 ; Hypertriglyceridemia E78.1 ; Personal history of venous thrombosis and embolism Z86.718 and Lump R22.9 [place] [address] [id number] [address] [place] [phone] Mar, Personal history of venous t hrombosis and embolism Z86.718 [place] [address] [id number] [address] [place] [phone] Mar, Personal history of venous t hrombosis and embolism Z86.718 [place] [address] [id number] [address] [place] [phone] Mar, [place] [address] [id number] [address] [place] [phone] Dec, Personal history of venous t hrombosis and embolism Z86.718 [place] [address] [id number] [address] [place] [phone] Dec, Personal history of venous t hrombosis and embolism V12.51 [place] [address] [id number] [address] [place] [phone] Nov, Personal history of venous t hrombosis and embolism V12.51 [place] [address] [id number] [address] [place] [id number] Nov, Personal history of venous t hrombosis and embolism V12.51 [facility] [address] [id number] [address] [place] [id number] Nov, Personal history of venous t hrombosis and embolism V12.51 [facility] [address] [id number] [address] [place] [id number] Nov, Personal history of venous t hrombosis and embolism V12.51 [facility] [address] [id number] [address] [place] [phone] Nov, [facility] [address] [id number] [address] [place] [id number] Oct, Dysuria 788.1 [facility] [address] [id number] [address] [place] [id number] Oct, Personal history of venous t hrombosis and embolism V12.51 [facility] [address] [id number] [address] [place] [id number] Oct, [facility] [address] [id number] [address] [place] [id number] Oct, Personal history of venous t hrombosis and embolism V12.51 [facility] [address] [id number] [address] [place] [phone] Sep, Personal history of venous t hrombosis and embolism V12.51 [facility] [address] [id number] [address] [place] [address] Sep, Personal history of venous t hrombosis and embolism V12.51 [facility] [address] [id number] [address] [place] [id number] Aug, Personal history of venous t hrombosis and embolism V12.51 [facility] [address] [id number] [address] [place] [id number] Aug, Personal history of venous t hrombosis and embolism V12.51 [facility] [address] [id number] [address] [place] [id number] 15 Aug, 2014 Personal history of venous t hrombosis and embolism V12.51 [facility] [address] [id number] [address] [place] [id number] 08 Jul, 2014 Generalized anxiety disorder 300.02 ; Abdominal pain, left lower quadrant 789.04 and Personal history of venous thrombosis and embolism V12.51 [facility] [address] [id number] [address] [place] [id number] 14 Jun, 2014 [facility] [address] [id number] [address] [place] [id number] Jun, [facility] [address] [id number] [address] [place] [id number] May, [facility] [address] [id number] [address] [place] [id number] May, [facility] [address] [id number] [address] [place] [id number] May, [facility] [address] [id number] [address] [place] [id number] May, [facility] [address] [id number] [address] [place] [id number] May, [facility] [address] [id number] [address] [place] [phone] May, [facility] [address] [id number] [address] [place] [id number] May, [facility] [address] [id number] [address] [place] [id number] May, [facility] [address] [id number] [address] [place] [id number] Apr, [facility] [address] [id number] [address] [place] [id number] Apr, [facility] [address] [id number] [address] [place] [address], [place] [address] Apr, [facility] [address] [id number] [address] [place] [address], [place] [address] Apr, [facility] [address] [id number] [address] [place] [address], [place] [address] Apr, [facility] [address] [id number] [address] [place] [address], [place] [address] Mar, [facility] [address] [id number] [address] [place] [address], [place] [address] Mar, [facility] [address] [id number] [address] [place] [address], [place] [address] Mar, [facility] [address] [id number] [address] [place] [address], [place] [address] Mar, [facility] [address] [id number] [address] [place] [address], [place] [address] Mar, [facility] [address] [id number] [address] [place] [address], [place] [address] Mar, [facility] [address] [id number] [address] [place] [address], [place] [address] Feb, [facility] [address] [id number] [address] [place] [address], [place] [address] Feb, [facility] [address] [id number] [address] [place] [address], [place] [address] Feb, [facility] [address] [id number] [address] [place] [address], [place] [address] Feb, [facility] [address] [id number] [address] [place] [address], [place] [address] Feb, [facility] [address] [id number] [address] [place] [address], [place] [address] Feb, [facility] [address] [id number] [address] [place] [address], [place] [address] Feb, [facility] [address] [id number] [address] [place] [address], [place] [address] Feb, [facility] [address] [id number] [address] [place] [address], [place] [address] Feb, [facility] [address] [id number] [address] [place] [address], [place] [address] Feb, [facility] [address] [id number] [address] [place] [address], [place] [address] Jan, [facility] [address] [id number] [address] [place] [address], [place] [address] Jan, [facility] [address] [id number] [address] [place] [address], [place] [address] Jan, [facility] [address] [id number] [address] [place] [address], [place] [address] Jan, [facility] [address] [id number] [address] [place] [address], [place] [address] Jan, [facility] [address] [id number] [address] [place] [address], [place] [address] Jan, [facility] [address] [id number] [address] [place] [address], [place] [address] Jan, [facility] [address] [id number] [address] [place] [address], [place] [address] Jan, [facility] [address] [id number] [address] [place] [address], [place] [address] Jan, [facility] [address] [id number] [address] [place] [address], [place] [address] Jan, [facility] [address] [id number] [address] [place] [address], [place] [address] Dec, [facility] [address] [id number] [address] [place] [address], [place] [address] Dec, [facility] [address] [id number] [address] [place] [address], [place] [address] Dec, [facility] [address] [id number] [address] [place] [address], [place] [address] Dec, [facility] [address] [id number] [address] [place] [address], [place] [address] Dec, [facility] [address] [id number] [address] [place] [address], [place] [address] Dec, [facility] [address] [id number] [address] [place] [address], [place] [address] Dec, [facility] [address] [id number] [address] [place] [address], [place] [address] Dec, [facility] [address] [id number] [address] [place] [address], [place] [address] Dec, [facility] [address] [id number] [address] [place] [address], [place] [address] Dec, [facility] [address] [id number] [address] [place] [address], [place] [address] Dec, [facility] [address] [id number] [address] [place] [address], [place] [address] Dec, [facility] [address] [id number] [address] [place] [address], [place] [address] Dec, [facility] [address] [id number] [address] [place] [id number] Dec, [facility] [address] [id number] [address] [place] [id number] Dec, [facility] [address] [id number] [address] [place] [address], [place] [address] Nov, [facility] [address] [id number] [address] [place] [address], [place] [address] Nov, [facility] [address] [id number] [address] [place] [address], [place] [address] Nov, [facility] [address] [id number] [facility] [place] [address] 26 Sep, 2013 [facility] [address] [id number] [facility] [place] [address] 24 Sep, 2013 [facility] [address] [id number] [facility] [place] [address] 24 Sep, 2013 [facility] [address] [id number] [address] [place] [address], [place] [address] 23 Sep, 2013 [facility] [address] [id number] [address] [place] [address], [place] [address] 23 Sep, 2013 [facility] [address] [id number] [address] [place] [address], [place] [address] 18 Sep, 2013 [facility] [address] [id number] [address] [place] [address], [place] [address] 18 Sep, 2013 [facility] [address] [id number] [address] [place] [address], [place] [address] 17 Sep, 2013 [facility] [address] [id number] [address] [place] [address], [place] [address] 17 Sep, 2013 [facility] [address] [id number] [address] [place] [address], [place] [address] 11 Nov, 2013 [facility] [address] [id number] [address] [place] [address], [place] [address] 11 Nov, 2013 [facility] [address] [id number] [address] [place] [address], [place] [address] 10 Nov, 2013 [facility] [address] [id number] [address] [place] [address], [place] [address] 10 Nov, 2013 [facility] [address] [id number] [address] [place] [address], [place] [address] 08 Nov, 2013 [facility] [address] [id number] [address] [place] [address], [place] [address] 08 Nov, 2013 [facility] [address] [id number] [address] [place] [address], [place] [address] Sep, [facility] [address] [id number] [facility] [place] [address] Sep, [facility] [address] [id number] [facility] [place] [address] Sep, [facility] [address] [id number] [facility] [place] [address] Sep, [facility] [address] [id number] [facility] [place] [address] Sep, [facility] [address] [id number] [facility] [place] [address] Sep, [facility] [address] [id number] [address] [place] [address], [place] [address] Aug, [facility] [address] [id number] [address] [place] [address], [place] [address] Aug, [facility] [address] [id number] [address] [place] [address], [place] [address] Aug, [facility] [address] [id number] [address] [place] [address], [place] [address] Aug, [facility] [address] [id number] [address] [place] [address], [place] [address] Aug, [facility] [address] [id number] [address] [place] [address], [place] [address] Aug, [facility] [address] [id number] [address] [place] [address], [place] [address] Aug, [facility] [address] [id number] [address] [place] [address], [place] [address] Aug, [facility] [address] [id number] [address] [place] [address], [place] [address] Aug, [facility] [address] [id number] [address] [place] [address], [place] [address] Aug, [facility] [address] [id number] [address] [place] [address], [place] [address] Aug, [facility] [address] [id number] [address] [place] [address], [place] [address] July, [facility] [address] [id number] [address] [place] [address], [place] [address] July, [facility] [address] [id number] [address] [place] [address], [place] [address] Jun, [facility] [address] [id number] [address] [place] [address], [place] [address] Jun, [facility] [address] [id number] [address] [place] [address], [place] [address] Jun, [facility] [address] [id number] [address] [place] [address], [place] [address] Jun, [facility] [address] [id number] [address] [place] [address], [place] [address] Jun, [facility] [address] [id number] [address] [place] [address], [place] [address] Jun, [facility] [address] [id number] [address] [place] [address], [place] [address] Jun, [facility] [address] [id number] [address] [place] [address], [place] [address] Jun, [facility] [address] [id number] [address] [place] [address], [place] [address] Jun, [facility] [address] [id number] [address] [place] [address], [place] [address] Jun, [facility] [address] [id number] [address] [place] [address], [place] [address] Jun, [facility] [address] [id number] [address] [place] [address], [place] [address] Jun, [facility] [address] [id number] [address] [place] [address], [place] [address] May, [facility] [address] [id number] [facility] [place] [address] May, [facility] [address] [id number] [facility] [place] [address] May, [facility] [address] [id number] [facility] [place] [address] May, [facility] [address] [id number] [address] [place] [address], [place] [address] May, [facility] [address] [id number] [address] [place] [address], [place] [address] May, [facility] [address] [id number] [address] [place] [address], [place] [address] May, [facility] [address] [id number] [address] [place] [address], [place] [address] May, [facility] [address] [id number] [address] [place] [address], [place] [address] May, [facility] [address] [id number] [address] [place] [address], [place] [address] May, [facility] [address] [id number] [address] [place] [address], [place] [address] May, [facility] [address] [id number] [address] [place] [address], [place] [address] May, [facility] [address] [id number] [address] [place] [address], [place] [address] Apr, [facility] [address] [id number] [address] [place] [address], [place] [address] Apr, [facility] [address] [id number] [address] [place] [address], [place] [address] Apr, [facility] [address] [id number] [address] [place] [address], [place] [address] Apr, [facility] [address] [id number] [address] [place] [address], [place] [address] Apr, [facility] [address] [id number] [address] [place] [address], [place] [address] Apr, [facility] [address] [id number] [address] [place] [address], [place] [address] Apr, [facility] [address] [id number] [address] [place] [address], [place] [address] Apr, [facility] [address] [id number] [address] [place] [address], [place] [address] Apr, [facility] [address] [id number] [address] [place] [address], [place] [address] Apr, [facility] [address] [id number] [address] [place] [address], [place] [address] Apr, [facility] [address] [id number] [address] [place] [address], [place] [address] Apr, [facility] [address] [id number] [address] [place] [address], [place] [address] Apr, [facility] [address] [id number] [address] [place] [address], [place] [address] Apr, [facility] [address] [id number] [address] [place] [address], [place] [address] Apr, [facility] [address] [id number] [address] [place] [address], [place] [address] Apr, [facility] [address] [id number] [address] [place] [address], [place] [address] Apr, [facility] [address] [id number] [address] [place] [address], [place] [address] Jan, [facility] [address] [id number] [address] [place] [address], [place] [address] Jan, [facility] [address] [id number] [address] [place] [address], [place] [address] Jan, [facility] [address] [id number] [address] [place] [address], [place] [address] Jan, [facility] [address] [id number] [address] [place] [address], [place] [address] Jan, [facility] [address] [id number] [address] [place] [address], [place] [address] Jan, [facility] [address] [id number] [address] [place] [address], [place] [address] Jan, [facility] [address] [id number] [address] [place] [address], [place] [address] Dec, [facility] [address] [id number] [address] [place] [address], [place] [address] Dec, [facility] [address] [id number] [address] [place] [address], [place] [address] Dec, [facility] [address] [id number] [address] [place] [address], [place] [address] Nov, [facility] [address] [id number] [address] [place] [address], [place] [address] Nov, [facility] [address] [id number] [address] [place] [address], [place] [address] 05 Nov, 2012 [facility] [address] [id number] [address] [place] [address], [place] [address] Nov, [facility] [address] [id number] [address] [place] [address], [place] [address] Oct, [facility] [address] [id number] [address] [place] [address], [place] [address] Oct, [facility] [address] [id number] [address] [place] [address], [place] [address] Oct, [facility] [address] [id number] [address] [place] [address], [place] [address] Oct, [facility] [address] [id number] [address] [place] [address], [place] [address] Oct, [facility] [address] [id number] [address] [place] [address], [place] [address] Sep, [facility] [address] [id number] [address] [place] [address], [place] [address] Sep, [facility] [address] [id number] [address] [place] [address], [place] [address] Sep, [facility] [address] [id number] [address] [place] [address], [place] [address] Sep, [facility] [address] [id number] [address] [place] [address], [place] [address] Sep, [facility] [address] [id number] [address] [place] [address], [place] [address] Sep, [facility] [address] [id number] [address] [place] [address], [place] [address] Sep, [facility] [address] [id number] [address] [place] [address], [place] [address] Aug, [facility] [address] [id number] [address] [place] [address], [place] [address] Aug, [facility] [address] [id number] [address] [place] [address], [place] [address] July, [facility] [address] [id number] [address] [place] [address], [place] [address] Jun, [facility] [address] [id number] [address] [place] [address], [place] [address] Jun, [facility] [address] [id number] [address] [place] [address], [place] [address] Jun, [facility] [address] [id number] [address] [place] [address], [place] [address] Apr, [facility] [address] [id number] [address] [place] [address], [place] [address] Apr, [facility] [address] [id number] [address] [place] [address], [place] [address] Apr, [facility] [address] [id number] [address] [place] [address], [place] [address] Mar, [facility] [address] [id number] [address] [place] [address], [place] [address] Mar, [facility] [address] [id number] [address] [place] [address], [place] [address] 2012 [facility] [address] [id number] [address] [place] [address], [place] [address] Mar, [facility] [address] [id number] [address] [place] [address], [place] [address] Mar, [facility] [address] [id number] [address] [place] [address], [place] [address] 14 Feb, 2012 [facility] [address] [id number] [address] [place] [address], [place] [address] 14 Feb, 2012 [facility] [address] [id number] [address] [place] [address], [place] [address] Jan, [facility] [address] [id number] [address] [place] [address], [place] [address] Jan, [facility] [address] [id number] [address] [place] [address], [place] [address] 13 Jan, 2012 [facility] [address] [id number] [address] [place] [address], [place] [address] 13 Jan, 2012 [facility] [address] [id number] [address] [place] [address], [place] [address] Jan, [facility] [address] [id number] [address] [place] [address], [place] [address] 07 Jan, 2012 [facility] [address] [id number] [address] [place] [address], [place] [address] 06 Jan, 2012 [facility] [address] [id number] [address] [place] [address], [place] [address] Dec, [facility] [address] [id number] [address] [place] [address], [place] [address] Dec, [facility] [address] [address] [id number] [address] [place] [address], [place] [address] Dec, [facility] [address] [id number] [address] [place] [address], [place] [address] Dec, [facility] [address] [id number] [address] [place] [address], [place] [address] Dec, [facility] [address] [id number] [address] [place] [address], [place] [address] Dec, [facility] [address] [id number] [address] [place] [address], [place] [address] Dec, [facility] [address] [id number] [address] [place] [address], [place] [address] Dec, [facility] [address] [id number] [address] [place] [address], [place] [address] Dec, [facility] [address] [id number] [address] [place] [address], [place] [id number] Dec, [facility] [address] [id number] [address] [place] [address], [place] [address] Oct, [facility] [address] [id number] [address] [place] [address], [place] [address] Oct, [facility] [address] [id number] [address] [place] [id number] Aug, [facility] [address] [id number] [address] [place] [address], [place] [address] Aug, [facility] [address] [id number] [address] [place] [id number] July, [facility] [address] [id number] [address] [place] [address], [place] [address] Jun, [facility] [address] [id number] [address] [place] [address], [place] [address] Jun, [facility] [address] [id number] [address] [place] [address], [place] [address] May, [facility] [address] [id number] [address] [place] [address], [place] [address] Apr, [facility] [address] [id number] [address] [place] [address], [place] [address] Apr, [facility] [address] [id number] [address] [place] [address], [place] [address] Mar, [facility] [address] [id number] [address] [place] [address], [place] [address] Mar, [facility] [address] [id number] [address] [place] [address], [place] [address] Feb, [facility] [address] [id number] [address] [place] [address], [place] [id number] 15 Feb, 2011 [facility] [address] [id number] [address] [place] [address], [place] [address] Feb, [facility] [address] [id number] [address] [place] [address], [place] [address] Feb, [facility] [address] [id number] [address] [place] [address], [place] [address] Jan, [facility] [address] [id number] [address] [place] [address], [place] [address] Dec, [facility] [address] [id number] [address] [place] [address], [place] [address] Feb, [facility] [address] [id number] [address] [place] [address], [place] [address] Feb, [facility] [address] [id number] [address] [place] [address], [place] [address] Feb, [facility] [address] [id number] [address] [place] [address], [place] [address] Feb, [facility] [address] [id number] [address] [place] [id number] Dec, [facility] [address] [id number] [address] [place] [id number] Dec, [facility] [address] [id number] [address] [place] [id number] Oct, [facility] [address] [id number] [address] [place] [id number] Jun, [facility] [address] [id number] [address] [place] [id number] Feb, [facility] [address] [id number] [address] [place] [id number] Feb, [facility] [address] [id number] [address] [place] [id number] Feb, [facility] [address] [id number] [address] [place] [id number] Dec, IMMUNIZATIONS No Known Immunizations SOCIAL HISTORY Never Assessed REASON FOR VISIT PLAN OF CARE VITAL SIGNS MEDICATIONS Unknown Medications RESULTS No Results PROCEDURES Procedure Date Ordered Result Body Site PROTHROMBIN TIME May 24, 2014 VENIPUNCT, ROUTINE* May 24, 2014 INSTRUCTIONS MEDICATIONS ADMINISTERED No Known Medications [...]
--- OUTSIDE RECORDS SUMMARY | 2019-10-19 12:29 | XMS REPORT ---
Author Author KIANAMary Jane Organization [facility] Address [address] [place] [address] Care Team Providers Care Line Assigner Name Role Phone ASHLEY BRUNO Unavailable PROBLEMS Type Condition ICD9-CM Code UIR04-CQ Code Onset Dates Condition S tatus SNOMED Code Problem Thyroid follicular adenoma D34 Act phylicia 681748132 Problem History of DVT (deep vein thrombosis) Z86.718 Active 529904097 Problem Factor V Leiden D68.51 Active 3070 03251 Problem buttermaker (current) use of anticoagulants Z79.01 Active 962488777 Problem Hypertriglyceridemia E78.1 Active 696284933 Problem 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 Active 441955645 Problem Pelvic pain R10.2 Active 84157075 Problem Peripheral edema R60.9 Active 271 253407 Problem Moderate episode of recurrent major depressive disorder F33.1 Active 798699387 Problem Presence of IVC filter Z95.828 Active 512563400 Problem Vitamin D deficiency E55.9 Active 74547128 Problem Generalized anxiety disorder F41.1 A ctive 354701864 Problem Excessive daytime sleepiness G47.19 A ctive [id number] Problem Gastroesophageal reflux disease, esophagitis pre sence not specified K21.9 Active 733636094 Problem Thyroid nodule E04.1 Active 20714 5005 Problem Morbid obesity E66.01 Active 48574 6002 ALLERGIES No Information ENCOUNTERS Encounter Location Date Diagnosis [facility] [address] [facility] [id number] [address] [place] [phone] Nov, Thyroid nodule E04.1 [facility] [address] [facility] [place] [id number] [address] [place] [phone] Nov, Thyroid nodule E04.1 [facility] [address] [facility] [place] [id number] [address] [place] [phone] Oct, Syncope, unspecified syncope type R55 and Encounter for weight management Z76.89 [facility] [address] [id number] [address] [place] [address] Oct, Morbid obesity E66.01 [facility] [address] [id number] [address] [place] [phone] Oct, Hypertriglyceridemia E78.1 [facility] [address] [facility] [place] [id number] [address] [place] [phone] Oct, [facility] [address] [id number] [address] [place] [phone] Oct, Hypertriglyceridemia E78.1 [place] [address] [facility] [place] [id number] [address] [place] [phone] Sep, Hypertriglyceridemia E78.1 a nd Vitamin D deficiency E55.9 [place] [address] [facility] [place] [id number] [address] [place] [address] Sep, [facility] [address] [facility] [place] [id number] [address] [place] [address] Sep, Morbid obesity E66.01 ; Mode rate episode of recurrent major depressive disorder F33.1 ; Hypertriglyceridemia E78.1 and Vitamin D deficiency E55.9 [facility] [address] [facility] [place] [id number] [address] [place] [phone] Aug, [facility] [address] [facility] [place] [id number] [address] [place] [phone] July, [facility] [address] [id number] [address] [place] [phone] July, [facility] [address] [facility] [place] [id number] [address] [place] [phone] Jun, [facility] [address] [facility] [place] [id number] [address] [place] [phone] Jun, [facility] [address] [facility] [place] [id number] [address] [place] [address] Jun, Closed compression fracture of L3 lumbar vertebra with routine healing, subsequent encounter S32.030D and Drug-induced constipation K59.03 [facility] [address] [place] [id number] [address] [place] [phone] Jun, [facility] [address] [place] [id number] [place] [phone] Jun, [facility] [address] [address] Apr, [facility] [address] [address] Apr, Morbid obesity E66.01 [facility] [address] [address] Apr, Morbid obesity E66.01 ; Hype rtriglyceridemia E78.1 ; Gastroesophageal reflux disease, esophagitis presence not specified K21.9 and Joint pain M25.50 [facility] [address] [place] [id number] [address] [place] [address] Feb, [facility] [address] [address] Feb, [facility] [address] [place] [id number] [address] [place] [phone] Jan, Acute bacterial conjunctivit is H10.30 [facility] [address] [place] [id number] [address] [place] [phone] Dec, [facility] [address] [place] [id number] [address] [place] [phone] Dec, [facility] [address] [place] [id number] [address] [place] [address] Nov, [facility] [address] [address] 07 Nov, 2017 Obstructive sleep apnea G47. 33 ; Morbid obesity E66.01 and Gastroesophageal reflux disease, esophagitis presence not specified K21.9 [facility] [address] [facility] [id number] [address] [place] [id number] 06 Nov, 2017 Encounter for examination of eyes and vision without abnormal findings Z01.00 [facility] [address] [facility] [place] [id number] [address] [place] [phone] 31 Oct, 2017 Thyroid nodule E04.1 and Scr eening for breast cancer Z12.31 [place] [address] [place] [id number] [place] [address] 23 Oct, 2017 History of DVT (deep vein th rombosis) Z86.718 ; Thyroid nodule E04.1 and Gastroesophageal reflux disease, esophagitis presence not specified K21.9 [place] [address] [address] Oct, [place] [address] [place] [id number] [place] [address] Sep, [place] [address] [address] Aug, [place] [address] [place] [id number] [address] [place] [address] Aug, [place] [address] [address] Aug, Acute pain of left shoulder M25.512 and Thyroid nodule E04.1 [place] [address] [place] [id number] [address] [place] [address] July, Superior glenoid labrum lesi on of left shoulder, subsequent encounter S43.432D [facility] [address] [place] [id number] [address] [place] [address] Jun, History of DVT (deep vein th rombosis) Z86.718 [facility] [address] [place] [id number] [address] [place] [address] Jun, History of DVT (deep vein th rombosis) Z86.718 [facility] [address] [place] [id number] [address] [place] [address] Jun, Impingement syndrome, should er, left M75.42 [place] [address] [id number] [address] [place] [phone] May, Subacromial bursitis of left shoulder joint M75.52 [place] [address] [facility] [place] [id number] [address] [place] [address] May, [place] [address] [facility] [place] [id number] [address] [place] [address] May, Hypertriglyceridemia E78.1 ; buttermaker (current) use of anticoagulants Z79.01 and Excessive daytime sleepiness G47.19 [place] [address] [facility] [place] [id number] [address] [place] [address] May, History of DVT (deep vein th rombosis) Z86.718 ; Generalized anxiety disorder F41.1 ; Hypertriglyceridemia E78.1 ; buttermaker (current) use of anticoagulants Z79.01 ; Subacromial bursitis of left shoulder joint M75.52 and Excessive daytime sleepiness G47.19 [place] [address] [id number] [address] [place] [address] May, [place] [address] [facility] [place] [id number] [address] [place] [address] May, buttermaker (current) use of a nticoagulants Z79.01 [place] [address] [id number] [address] [place] [phone] Apr, buttermaker (current) use of a nticoagulants Z79.01 [place] [address] [id number] [address] [place] [address] Apr, buttermaker (current) use of a nticoagulants Z79.01 [place] [address] [facility] [place] [id number] [address] [place] [address] Apr, [facility] (current) use of a nticoagulants Z79.01 [place] [address] [facility] [place] [id number] [address] [place] [address] Apr, [facility] [address] [id number] [address] [place] [phone] 16 Apr, 2017 [facility] (current) use of a nticoagulants Z79.01 [facility] [address] [id number] [address] [place] [phone] 13 Apr, 2017 buttermaker (current) use of a nticoagulants Z79.01 [facility] [address] [id number] [address] [place] [address] Apr, [facility] (current) use of a nticoagulants Z79.01 [facility] [address] [id number] [address] [place] [address] Apr, [facility] (current) use of a nticoagulants Z79.01 [facility] [address] [id number] [address] [place] [phone] Apr, buttermaker (current) use of a nticoagulants Z79.01 [facility] [address] [id number] [address] [place] [address] Apr, buttermaker (current) use of a nticoagulants Z79.01 [facility] [address] [id number] [address] [place] [address] Mar, [facility] (current) use of a nticoagulants Z79.01 [facility] [address] [id number] [address] [place] [address] Mar, [facility] [address] [id number] [address] [place] [phone] Mar, [facility] (current) use of a nticoagulants Z79.01 [facility] [address] [id number] [address] [place] [id number] Jan, Dental examination Z01.20 [facility] [address] [id number] [address] [place] [id number] Jan, [facility] [address] [id number] [address] [place] [address] Jan, [facility] (current) use of a nticoagulants Z79.01 [facility] [address] [id number] [address] [place] [address] Jan, History of DVT (deep vein th rombosis) Z86.718 [facility] [address] [id number] [address] [place] [phone] Jan, Generalized anxiety disorder F41.1 and Peripheral edema R60.9 [place] [address] [id number] [address] [place] [phone] Nov, History of DVT (deep vein th rombosis) Z86.718 [facility] [address] [facility] [id number] [address] [place] [address] Nov, buttermaker (current) use of a nticoagulants Z79.01 [facility] [address] [id number] [address] [place] [phone] Nov, Acute non-recurrent maxillar y sinusitis J01.00 [facility] [address] [id number] [address] [place] [phone] Oct, buttermaker (current) use of a nticoagulants Z79.01 [facility] [address] [id number] [address] [place] [phone] Oct, Personal history of venous t hrombosis and embolism Z86.718 [facility] [address] [id number] [address] [place] [address] Sep, [facility] [address] [id number] [address] [place] [phone] Sep, Personal history of venous t hrombosis and embolism Z86.718 [facility] [address] [facility] [id number] [address] [place] [phone] Sep, buttermaker (current) use of a nticoagulants Z79.01 [facility] [address] [id number] [address] [place] [address] Sep, buttermaker (current) use of a nticoagulants Z79.01 [facility] [address] [id number] [address] [place] [phone] Sep, Generalized anxiety disorder F41.1 and History of DVT (deep vein thrombosis) Z86.718 [place] [address] [id number] [address] [place] [address] Aug, History of DVT (deep vein th rombosis) Z86.718 ; Generalized anxiety disorder F41.1 ; buttermaker (current) use of anticoagulants Z79.01 ; Pelvic pain R10.2 ; Hypertriglyceridemia E78.1 ; Excessive daytime sleepiness G47.19 ; Colon cancer screening Z12.11 ; Screening for breast cancer Z12.39 ; Peripheral edema R60.9 and Gastroesophageal reflux disease, esophagitis presence not specified K21.9 [place] [address] [facility] [id number] [address] [place] [address] Aug, [place] [address] [facility] [id number] [address] [place] [phone] July, [place] [address] [facility] [id number] [address] [place] [address] July, History of DVT (deep vein th rombosis) Z86.718 [place] [address] [facility] [id number] [address] [place] [address] Jun, Generalized anxiety disorder F41.1 [place] [address] [facility] [id number] [address] [place] [address] Jun, History of DVT (deep vein th rombosis) Z86.718 [place] [address] [facility] [id number] [address] [place] [address] Jun, History of DVT (deep vein th rombosis) Z86.718 [place] [id number] [place] [address] Jun, History of DVT (deep vein th rombosis) Z86.718 [facility] [address] [place] [id number] [address] [place] [address] Jun, History of DVT (deep vein th rombosis) Z86.718 [facility] [address] [place] [address] May, History of DVT (deep vein th rombosis) Z86.718 [facility] [address] [place] [id number] [address] [place] [address] May, buttermaker (current) use of a nticoagulants Z79.01 [place] [address] [address] May, buttermaker (current) use of a nticoagulants Z79.01 [place] [address] [place] [id number] [address] [place] [address] May, History of DVT (deep vein th rombosis) Z86.718 [facility] [address] [place] [id number] [place] [address] Apr, Bacterial conjunctivitis of left eye H10.9 and H/O motion sickness Z87.898 [facility] [address] [place] [address] Apr, History of DVT (deep vein th rombosis) Z86.718 [place] [address] [place] [id number] [address] [place] [address] Apr, History of DVT (deep vein th rombosis) Z86.718 [place] [address] [place] [id number] [place] [address] Apr, History of DVT (deep vein th rombosis) Z86.718 [facility] [address] [place] [id number] [address] [place] [id number] 14 Apr, 2016 [facility] (current) use of a nticoagulants Z79.01 [facility] [address] [id number] [address] [place] [address] Mar, [facility] [address] [facility] [id number] [address] [place] [address] Mar, [facility] (current) use of a nticoagulants Z79.01 [facility] [address] [id number] [address] [place] [address] Mar, Hypertriglyceridemia E78.1 a nd buttermaker (current) use of anticoagulants Z79.01 [place] [address] [id number] [address] [place] [address] Feb, [facility] (current) use of a nticoagulants Z79.01 [place] [address] [facility] [id number] [address] [place] [address] Feb, [facility] (current) use of a nticoagulants Z79.01 [place] [address] [id number] [address] [place] [address] Feb, [facility] (current) use of a nticoagulants Z79.01 [facility] [address] [id number] [address] [place] [address] Dec, [place] [address] [facility] [id number] [address] [place] [address] Nov, [facility] [address] [id number] [address] [place] [address] Nov, History of DVT (deep vein th rombosis) Z86.718 ; Tremulousness R25.1 ; Generalized anxiety disorder F41.1 ; Peripheral edema R60.9 and Hypertriglyceridemia E78.1 [place] [address] [facility] [id number] [address] [place] [address] Oct, History of DVT (deep vein th rombosis) Z86.718 [facility] [address] [id number] [address] [place] [address] Oct, [place] [address] [facility] [id number] [address] [place] [address] Sep, History of DVT (deep vein th rombosis) Z86.718 [place] [address] [facility] [id number] [address] [place] [address] Sep, buttermaker (current) use of a nticoagulants Z79.01 [place] [address] [id number] [address] [place] [address] July, [place] [address] [facility] [id number] [address] [place] [address] July, buttermaker (current) use of a nticoagulants Z79.01 [place] [address] [facility] [id number] [address] [place] [address] July, [facility] (current) use of a nticoagulants Z79.01 [place] [address] [facility] [id number] [address] [place] [address] Jun, buttermaker (current) use of a nticoagulants Z79.01 [facility] [place] [address] [facility] [id number] [address] [place] [address] Jun, Coccyx pain M53.3 ; Encounte r for therapeutic drug level monitoring Z51.81 and buttermaker current use 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.01 [place] [address] [facility] [id number] [address] [place] [address] May, Abnormal mammogram R92.8 [facility] [address] [facility] [id number] [address] [place] [phone] May, [facility] [place] [address] [facility] [id number] [address] [place] [phone] May, Acute vaginitis N76.0 and En counter for other screening for malignant neoplasm of breast Z12.39 [place] [address] [place] [id number] [address] [place] [address] Apr, [facility] [address] [id number] [address] [place] [phone] Apr, [facility] [address] [facility] [id number] [address] [place] [address] Apr, Peripheral edema R60.9 [facility] [address] [facility] [id number] [address] [place] [address] Apr, buttermaker (current) use of a nticoagulants Z79.01 [facility] [address] [id number] [address] [place] [address] Apr, Peripheral edema R60.9 and L jose martin term (current) 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 Z79.01 [place] [address] [facility] [id number] [address] [place] [address] Apr, [facility] (current) use of a nticoagulants Z79.01 [place] [address] [id number] [address] [place] [phone] Apr, [facility] [address] [facility] [id number] [address] [place] [address] Apr, [facility] (current) use of a nticoagulants Z79.01 [place] [address] [facility] [id number] [address] [place] [address] Apr, Peripheral edema R60.9 [facility] [address] [facility] [id number] [address] [place] [address] Mar, buttermaker (current) use of a nticoagulants Z79.01 [facility] [address] [facility]] [id number] [address] [place] [phone] Mar, [facility] (current) use of a nticoagulants Z79.01 and Hypertriglyceridemia E78.1 [place] [address] [facility] [id number] [address] [place] [phone] Mar, [facility] (current) use of a nticoagulants Z79.01 [facility] [address] [id number] [address] [place] [phone] Mar, [facility] (current) use of a nticoagulants Z79.01 [place] [address] [id number] [address] [place] [phone] Mar, [place] [address] [id number] [address] [place] [phone] Mar, [facility] (current) use of a nticoagulants Z79.01 ; Hypertriglyceridemia E78.1 ; Personal history of venous thrombosis and embolism Z86.718 and Lump R22.9 [place] [address] [id number] [address] [place] [phone] Mar, Personal history of venous t hrombosis and embolism Z86.718 [place] [address] [id number] [address] [place] [phone] Mar, Personal history of venous t hrombosis and embolism Z86.718 [place] [address] [id number] [address] [place] [phone] Mar, [place] [address] [id number] [address] [place] [phone] Dec, Personal history of venous t hrombosis and embolism Z86.718 [place] [address] [id number] [address] [place] [phone] Dec, Personal history of venous t hrombosis and embolism V12.51 [place] [address] [id number] [address] [place] [phone] Nov, Personal history of venous t hrombosis and embolism V12.51 [place] [address] [id number] [address] [place] [phone] Nov, Personal history of venous t hrombosis and embolism V12.51 [place] [address] [id number] [address] [place] [phone] Nov, Personal history of venous t hrombosis and embolism V12.51 [facility] [address] [id number] [address] [place] [phone] Nov, Personal history of venous t hrombosis and embolism V12.51 [facility] [address] [id number] [address] [place] [phone] Nov, [facility] [address] [id number] [address] [place] [phone] Oct, Dysuria 788.1 [place] [address] [id number] [address] [place] [phone] Oct, Personal history of venous t hrombosis and embolism V12.51 [facility] [address] [id number] [address] [place] [phone] Oct, [facility] [address] [id number] [address] [place] [phone] Oct, Personal history of venous t hrombosis and embolism V12.51 [place] [address] [id number] [address] [place] [id number] Sep, Personal history of venous t hrombosis and embolism V12.51 [place] [id number] [id number] [address] [place] [address] Sep, Personal history of venous t hrombosis and embolism V12.51 [facility] [address] [id number] [address] [place] [address] Aug, Personal history of venous t hrombosis and embolism V12.51 [place] [address] [id number] [address] [place] [id number] Aug, Personal history of venous t hrombosis and embolism V12.51 [facility] [address] [id number] [address] [place] [id number] Aug, Personal history of venous t hrombosis and embolism V12.51 [facility] [address] [id number] [address] [place] [id number] July, Generalized anxiety disorder 300.02 ; Abdominal pain, left lower quadrant 789.04 and Personal history of venous thrombosis and embolism V12.51 [facility] [address] [id number] [address] [place] [id number] 14 Jun, 2014 [facility] [address] [id number] [address] [place] [phone] Jun, [facility] [address] [id number] [address] [place] [phone] May, [facility] [address] [id number] [address] [place] [id number] May, [facility] [address] [id number] [address] [place] [id number] May, [facility] [address] [id number] [address] [place] [phone] May, [facility] [address] [id number] [address] [place] [phone] May, [facility] [address] [id number] [address] [place] [id number] May, [facility] [address] [id number] [address] [place] [phone] May, [facility] [address] [id number] [address] [place] [id number] May, [facility] [address] [id number] [address] [place] [id number] Apr, [facility] [address] [id number] [address] [place] [phone] Apr, [facility] [address] [id number] [address] [place] [phone] Apr, [facility] [address] [id number] [address] [place] [phone] Apr, [facility] [address] [id number] [address] [place] [address], [place] [address] Apr, [facility] [address] [id number] [address] [place] [address], [place] [address] Mar, [facility] [address] [id number] [address] [place] [address], [place] [address] Mar, [facility] [address] [id number] [address] [place] [address], [place] [address] Mar, [facility] [address] [id number] [address] [place] [address], [place] [address] Mar, [facility] [address] [id number] [address] [place] [address], [place] [address] Mar, [facility] [address] [id number] [address] [place] [address], [place] [address] Mar, [facility] [address] [id number] [address] [place] [address], [place] [address] Feb, [facility] [address] [id number] [address] [place] [address], [place] [address] Feb, [facility] [address] [id number] [address] [place] [address], [place] [address] Feb, [facility] [address] [id number] [address] [place] [address], [place] [address] Feb, [facility] [address] [id number] [address] [place] [address], [place] [address] Feb, [facility] [address] [id number] [address] [place] [address], [place] [address] Feb, [facility] [address] [id number] [address] [place] [address], [place] [address] Feb, [facility] [address] [id number] [address] [place] [address], [place] [address] Feb, [facility] [address] [id number] [address] [place] [address], [place] [address] Feb, [facility] [address] [id number] [address] [place] [address], [place] [address] Feb, [facility] [address] [id number] [address] [place] [address], [place] [address] Jan, [facility] [address] [id number] [address] [place] [address], [place] [address] Jan, [facility] [address] [id number] [address] [place] [address], [place] [address] Jan, [facility] [address] [id number] [address] [place] [address], [place] [address] Jan, [facility] [address] [id number] [address] [place] [address], [place] [address] Jan, [facility] [address] [id number] [address] [place] [address], [place] [address] Jan, [facility] [address] [id number] [address] [place] [address], [place] [address] Jan, [facility] [address] [id number] [address] [place] [address], [place] [address] Jan, [facility] [address] [id number] [address] [place] [address], [place] [address] Jan, [facility] [address] [id number] [address] [place] [address], [place] [address] Jan, [facility] [address] [id number] [address] [place] [address], [place] [address] Dec, [facility] [address] [id number] [address] [place] [address], [place] [address] Dec, [facility] [address] [id number] [address] [place] [address], [place] [address] Dec, [facility] [address] [id number] [address] [place] [address], [place] [address] Dec, [facility] [address] [id number] [address] [place] [address], [place] [address] Dec, [facility] [address] [id number] [address] [place] [address], [place] [address] Dec, [facility] [address] [id number] [address] [place] [address], [place] [address] Dec, [facility] [address] [id number] [address] [place] [address], [place] [address] Dec, [facility] [address] [id number] [address] [place] [address], [place] [address] Dec, [facility] [address] [id number] [address] [place] [address], [place] [address] Dec, [facility] [address] [id number] [address] [place] [address], [place] [address] Dec, [facility] [address] [id number] [address] [place] [address], [place] [address] Dec, [facility] [address] [id number] [address] [place] [address], [place] [address] Dec, [facility] [address] [id number] [address] [place] [id number] Dec, [facility] [address] [id number] [address] [place] [address], [place] [address] Dec, [facility] [address] [id number] [address] [place] [id number] Nov, [facility] [address] [id number] [address] [place] [address], [place] [address] Nov, [facility] [address] [id number] [address] [place] [address], [place] [address] Nov, [facility] [address] [id number] [address] [place] [address], [place] [address] Nov, [facility] [address] [id number] [facility] [address] 24 Sep, 2013 [facility] [address] [id number] [address] [place] [address], [place] [address] 24 Sep, 2013 [facility] [address] [id number] [address] [place] [address], [place] [address] 23 Sep, 2013 [facility] [address] [id number] [address] [place] [address], [place] [address] 23 Sep, 2013 [facility] [address] [id number] [address] [place] [address], [place] [address] 18 Sep, 2013 [facility] [address] [id number] [address] [place] [address], [place] [address] 18 Nov, 2013 [facility] [address] [id number] [address] [place] [address], [place] [address] 17 Nov, 2013 [facility] [address] [id number] [address] [place] [address], [place] [address] 17 Nov, 2013 [facility] [address] [id number] [address] [place] [address], [place] [address] 11 Nov, 2013 [facility] [address] [id number] [address] [place] [address], [place] [address] 11 Nov, 2013 [facility] [address] [id number] [address] [place] [address], [place] [address] 10 Nov, 2013 [facility] [address] [id number] [address] [place] [address], [place] [address] 10 Nov, 2013 [facility] [address] [id number] [address] [place] [address], [place] [address] 08 Nov, 2013 [facility] [address] [id number] [address] [place] [address], [place] [address] 08 Nov, 2013 [facility] [address] [id number] [address] [place] [address], [place] [address] 22 Sep, 2013 [facility] [address] [id number] [address] [place] [address], [place] [address] 22 Sep, 2013 [facility] [address] [id number] [facility] [address] Sep, [facility] [address] [id number] [facility] [place] [address] Sep, [facility] [address] [id number] [facility] [place] [address] Sep, [facility] [address] [id number] [facility] [place] [address] Sep, [facility] [address] [id number] [facility] [place] [address] Aug, [facility] [address] [id number] [address] [place] [address], [place] [address] Aug, [facility] [address] [id number] [facility] [place] [address] Aug, [facility] [address] [id number] [address] [place] [address], [place] [address] Aug, [facility] [address] [id number] [address] [place] [address], [place] [address] Aug, [facility] [address] [id number] [address] [place] [address], [place] [address] Aug, [facility] [address] [id number] [address] [place] [address], [place] [address] Aug, [facility] [address] [id number] [address] [place] [address], [place] [address] Aug, [facility] [address] [id number] [address] [place] [address], [place] [address] Aug, [facility] [address] [id number] [address] [place] [address], [place] [address] Aug, [facility] [address] [id number] [address] [place] [address], [place] [address] Aug, [facility] [address] [id number] [address] [place] [address], [place] [address] July, [facility] [address] [id number] [address] [place] [address], [place] [address] July, [facility] [address] [id number] [address] [place] [address], [place] [address] Jun, [facility] [address] [id number] [address] [place] [address], [place] [address] Jun, [facility] [address] [id number] [address] [place] [address], [place] [address] Jun, [facility] [address] [id number] [address] [place] [address], [place] [address] Jun, [facility] [address] [id number] [address] [place] [address], [place] [address] Jun, [facility] [address] [id number] [address] [place] [address], [place] [address] Jun, [facility] [address] [id number] [address] [place] [address], [place] [address] Jun, [facility] [address] [id number] [address] [place] [address], [place] [address] Jun, [facility] [address] [id number] [address] [place] [address], [place] [address] Jun, [facility] [address] [id number] [address] [place] [address], [place] [address] Jun, [facility] [address] [id number] [address] [place] [address], [place] [address] Jun, [facility] [address] [id number] [address] [place] [address], [place] [address] Jun, [facility] [address] [id number] [address] [place] [address], [place] [address] May, [facility] [address] [id number] [address] [place] [address], [place] [address] May, [facility] [address] [id number] [facility] [address] 20 May, [address] [facility] [address] [id number] [facility] [place] [address] May, [facility] [address] [id number] [facility] [place] [address] May, [facility] [address] [id number] [address] [place] [address], [place] [address] May, [facility] [address] [id number] [address] [place] [address], [place] [address] May, [facility] [address] [id number] [address] [place] [address], [place] [address] May, [facility] [address] [id number] [address] [place] [address], [place] [address] May, [facility] [address] [id number] [address] [place] [address], [place] [address] May, [facility] [address] [id number] [address] [place] [address], [place] [address] May, [facility] [address] [id number] [address] [place] [address], [place] [address] May, [facility] [address] [id number] [address] [place] [address], [place] [address] Apr, [facility] [address] [id number] [address] [place] [address], [place] [address] Apr, [facility] [address] [id number] [address] [place] [address], [place] [address] Apr, [facility] [address] [id number] [address] [place] [address], [place] [address] Apr, [facility] [address] [id number] [address] [place] [address], [place] [address] Apr, [facility] [address] [id number] [address] [place] [address], [place] [address] Apr, [facility] [address] [id number] [address] [place] [address], [place] [address] Apr, [facility] [address] [id number] [address] [place] [address], [place] [address] Apr, [facility] [address] [id number] [address] [place] [address], [place] [address] Apr, [facility] [address] [id number] [address] [place] [address], [place] [address] Apr, [facility] [address] [id number] [address] [place] [address], [place] [address] Apr, [facility] [address] [id number] [address] [place] [address], [place] [address] Apr, [facility] [address] [id number] [address] [place] [address], [place] [address] Apr, [facility] [address] [id number] [address] [place] [address], [place] [address] Apr, [facility] [address] [id number] [address] [place] [address], [place] [address] Apr, [facility] [address] [id number] [address] [place] [address], [place] [address] Apr, [facility] [address] [id number] [address] [place] [address], [place] [address] Apr, [facility] [address] [id number] [address] [place] [address], [place] [address] Jan, [facility] [address] [id number] [address] [place] [address], [place] [address] Jan, [facility] [address] [id number] [address] [place] [address], [place] [address] Jan, [facility] [address] [id number] [address] [place] [address], [place] [address] Jan, [facility] [address] [id number] [address] [place] [address], [place] [address] Jan, [facility] [address] [id number] [address] [place] [address], [place] [address] Jan, [facility] [address] [id number] [address] [place] [address], [place] [address] Jan, [facility] [address] [id number] [address] [place] [address], [place] [address] Dec, [facility] [address] [id number] [address] [place] [address], [place] [address] Dec, [facility] [address] [id number] [address] [place] [address], [place] [address] Dec, [facility] [address] [id number] [address] [place] [address], [place] [address] Nov, [facility] [address] [id number] [address] [place] [address], [place] [address] Nov, [facility] [address] [id number] [address] [place] [address], [place] [address] 05 Nov, 2012 [facility] [address] [id number] [address] [place] [address], [place] [address] Nov, [facility] [address] [id number] [address] [place] [address], [place] [address] Oct, [facility] [address] [id number] [address] [place] [address], [place] [address] Oct, [facility] [address] [id number] [address] [place] [address], [place] [address] Oct, [facility] [address] [id number] [address] [place] [address], [place] [address] Oct, [facility] [address] [id number] [address] [place] [address], [place] [address] Oct, [facility] [address] [id number] [address] [place] [address], [place] [address] Sep, [facility] [address] [id number] [address] [place] [address], [place] [address] Sep, [facility] [address] [id number] [address] [place] [address], [place] [address] Sep, [facility] [address] [id number] [address] [place] [address], [place] [address] Sep, [facility] [address] [id number] [address] [place] [address], [place] [address] Sep, [facility] [address] [id number] [address] [place] [address], [place] [address] Sep, [facility] [address] [id number] [address] [place] [address], [place] [address] Sep, [facility] [address] [id number] [address] [place] [address], [place] [address] Aug, [facility] [address] [id number] [address] [place] [address], [place] [address] Aug, [facility] [address] [id number] [address] [place] [address], [place] [address] July, [facility] [address] [id number] [address] [place] [address], [place] [address] Jun, [facility] [address] [id number] [address] [place] [address], [place] [address] Jun, [facility] [address] [id number] [address] [place] [address], [place] [address] Jun, [facility] [address] [id number] [address] [place] [address], [place] [address] Apr, [facility] [address] [id number] [address] [place] [address], [place] [address] Apr, [facility] [address] [id number] [address] [place] [address], [place] [address] Apr, [facility] [address] [id number] [address] [place] [address], [place] [address] Mar, [facility] [address] [id number] [address] [place] [address], [place] [address] 24 Mar, 2012 [facility] [address] [id number] [address] [place] [address], [place] [address] 2012 [facility] [address] [id number] [address] [place] [address], [place] [address] 09 Mar, 2012 [facility] [address] [id number] [address] [place] [address], [place] [address] Mar, [facility] [address] [id number] [address] [place] [address], [place] [address] 14 Feb, 2012 [facility] [address] [id number] [address] [place] [address], [place] [address] 14 Feb, [address] [facility] [address] [id number] [address] [place] [address], [place] [address] 13 Jan, 2012 [facility] [address] [id number] [address] [place] [address], [place] [address] 13 Jan, 2012 [facility] [address] [id number] [address] [place] [address], [place] [address] Jan, [facility] [address] [id number] [address] [place] [address], [place] [id number] 13 Jan, [address] [facility] [address] [id number] [address] [place] [address], [place] [address] Jan, [facility] [address] [id number] [address] [place] [address], [place] [address] 07 Jan, 2012 [facility] [address] [id number] [address] [place] [address], [place] [address] 06 Jan, 2012 [facility] [address] [id number] [address] [place] [address], [place] [address] Dec, [facility] [address] [id number] [address] [place] [address], [place] [address] Dec, [facility] [address] [id number] [address] [place] [address], [place] [address] Dec, [facility] [address] [id number] [address] [place] [address], [place] [address] Dec, [facility] [address] [id number] [address] [place] [address], [place] [address] Dec, [facility] [address] [id number] [address] [place] [address], [place] [address] Dec, [facility] [address] [id number] [address] [place] [address], [place] [address] Dec, [facility] [address] [id number] [address] [place] [address], [place] [address] Dec, [facility] [address] [id number] [address] [place] [address], [place] [address] Dec, [facility] [address] [id number] [address] [place] [address], [place] [address] Dec, [facility] [address] [id number] [address] [place] [address], [place] [address] Oct, [facility] [address] [id number] [address] [place] [id number] Oct, [facility] [address] [id number] [address] [place] [id number] Aug, [facility] [address] [id number] [address] [place] [id number] Aug, [facility] [address] [id number] [address] [place] [address], [place] [address] July, [facility] [address] [id number] [address] [place] [address], [place] [address] Jun, [facility] [address] [id number] [address] [place] [address], [place] [id number] Jun, [facility] [address] [id number] [address] [place] [address], [place] [phone] May, [facility] [address] [id number] [address] [place] [address], [place] [phone] Apr, [facility] [address] [id number] [address] [place] [address], [place] [id number] 16 Apr, 2011 [facility] [address] [id number] [address] [place] [address], [place] [id number] Mar, [facility] [address] [id number] [address] [place] [address], [place] [address] Mar, [facility] [address] [id number] [address] [place] [address], [place] [id number] 19 Feb, [address] [facility] [address] [id number] [address] [place] [address], [place] [id number] 15 Feb, 2011 [facility] [address] [id number] [address] [place] [address], [place] [address] Feb, [facility] [address] [id number] [address] [place] [address], [place] [id number] 13 Feb, [address] [facility] [address] [id number] [address] [place] [address], [place] [id number] Jan, [facility] [address] [id number] [address] [place] [address], [place] [id number] 17 Dec, 2010 [facility] [address] [id number] [address] [place] [address], [place] [id number] 08 Feb, 2010 [facility] [address] [id number] [address] [place] [address], [place] [id number] Feb, [facility] [address] [id number] [address] [place] [address], [place] [id number] Feb, [facility] [address] [id number] [address] [place] [address], [place] [phone] Feb, [facility] [address] [id number] [address] [place] [address], [place] [id number] 15 Dec, 2009 [facility] [address] [id number] [address] [place] [phone] Dec, [facility] [address] [id number] [address] [place] [phone] Oct, [facility] [address] [id number] [address] [place] [phone] Jun, [facility] [address] [id number] [address] [place] [id number] Feb, [facility] [address] [id number] [address] [place] [phone] Feb, [facility] [address] [id number] [address] [place] [phone] Feb, [facility] [address] [id number] [address] [place] [phone] Dec, IMMUNIZATIONS No Known Immunizations SOCIAL HISTORY Never Assessed REASON FOR VISIT PLAN OF CARE VITAL SIGNS MEDICATIONS Unknown Medications RESULTS No Results PROCEDURES Procedure Date Ordered Result Body Site PROTHROMBIN TIME Jan 19, 2014 INSTRUCTIONS MEDICATIONS ADMINISTERED No Known Medications MEDICAL (GENERAL) HISTORY Type Description Date Medical History obesity Medical History Hematologic disorder factor clotting pro [place]lem Medical History DVT's Medical History Torn Rotator Cuff, repaired 09/23/17 Surgical History Lap Band 10/2012 Surgical History section 1985, 1987 Surgical History cholecystectomy Surgical History [place] Filter 06/2009 Surgical History Left leg exploratory surgery r/t clot 19 Surgical History left shoulder surgery 09/14/17 Surgical History lap band removed 12/2017 Surgical History gastic sleeve 01/2018 Surgical History Back surgery 2019 Hospitalization History Ruptured Ovarian Cyst with abd bleed ing 11/2009 Hospitalization History Broken Back 06/2018
--- OUTSIDE RECORDS SUMMARY | 2019-10-19 12:29 | XMS REPORT ---
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 722030410 Problem Hypertriglyceridemia E78.1 Active 565961675 Problem 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 Active 250178163 Problem Pelvic pain R10.2 Active 86541046 Problem Peripheral edema R60.9 Active 271 232394 Problem Moderate episode of recurrent major depressive disorder F33.1 Active 586478354 Problem Presence of IVC filter Z95.828 Active 545959772 Problem Vitamin D deficiency E55.9 Active 13216207 Problem Generalized anxiety disorder F41.1 A ctive 482241078 Problem Excessive daytime sleepiness G47.19 A ctive 508956188198 Problem Gastroesophageal reflux disease, esophagitis pre sence not specified K21.9 Active 885473162 Problem Thyroid nodule E04.1 Active 99459 5005 Problem Morbid obesity E66.01 Active 96587 6002 ALLERGIES No Information ENCOUNTERS Encounter Location Date Diagnosis [facility] [address] [facility] [id number] [address] [place] [id number] Nov, Thyroid nodule E04.1 [facility] [address] [facility] [id number] [address] [place] [phone] Nov, Thyroid nodule E04.1 [facility] [address] [facility] [id number] [address] [place] [phone] Oct, Syncope, unspecified syncope type R55 and Encounter for weight management Z76.89 [facility] [address] [id number] [address] [place] [phone] Oct, Morbid obesity E66.01 [facility] [address] [id number] [address] [place] [address] Oct, Hypertriglyceridemia E78.1 [facility] [address] [facility] [id number] [address] [place] [phone] Oct, [facility] [address] [id number] [address] [place] [phone] Oct, Hypertriglyceridemia E78.1 [place] [address] [facility] [id number] [address] [place] [phone] Sep, Hypertriglyceridemia E78.1 a nd Vitamin D deficiency E55.9 [place] [address] [facility] [id number] [address] [place] [id number] Sep, [facility] [address] [facility] [id number] [address] [place] [id number] Sep, Morbid obesity E66.01 ; Mode rate episode of recurrent major depressive disorder F33.1 ; Hypertriglyceridemia E78.1 and Vitamin D deficiency E55.9 [facility] [address] [facility] [id number] [address] [place] [address] Aug, [facility] [address] [facility] [id number] [address] [place] [phone] July, [facility] [address] [id number] [address] [place] [phone] July, [facility] [address] [facility] [id number] [address] [place] [address] Jun, [facility] [address] [facility] [id number] [address] [place] [phone] Jun, [facility] [address] [facility] [id number] [address] [place] [id number] Jun, Closed compression fracture of L3 lumbar vertebra with routine healing, subsequent encounter S32.030D and Drug-induced constipation K59.03 [facility] [address] [place] [id number] [address] [place] [phone] Jun, [facility] [address] [place] [id number] [place] [phone] Jun, [facility] [address] [id number] Apr, [facility] [address] [address] Apr, Morbid obesity E66.01 [facility] [address] [address] Apr, Morbid obesity E66.01 ; Hype rtriglyceridemia E78.1 ; Gastroesophageal reflux disease, esophagitis presence not specified K21.9 and Joint pain M25.50 [facility] [address] [place] [id number] [address] [place] [phone] Feb, [facility] [address] [id number] Feb, [facility] [address] [place] [id number] [address] [place] [id number] Jan, Acute bacterial conjunctivit is H10.30 [facility] [address] [place] [id number] [address] [place] [address] Dec, [facility] [address] [place] [id number] [address] [place] [phone] Dec, [facility] [address] [place] [id number] [address] [place] [address] Nov, [facility] [address] [address] 07 Nov, 2017 Obstructive sleep apnea G47. 33 ; Morbid obesity E66.01 and Gastroesophageal reflux disease, esophagitis presence not specified K21.9 [facility] [address] [facility] [id number] [address] [place] [id number] 06 Nov, 2017 Encounter for examination of eyes and vision without abnormal findings Z01.00 [facility] [address] [facility] [id number] [address] [place] [id number] 31 Oct, 2017 Thyroid nodule E04.1 and Scr eening for breast cancer Z12.31 [place] [address] [place] [id number] [place] [address] 23 Oct, 2017 History of DVT (deep vein th rombosis) Z86.718 ; Thyroid nodule E04.1 and Gastroesophageal reflux disease, esophagitis presence not specified K21.9 [place] [address] [id number] Oct, [place] [address] [place] [id number] [place] [phone] Sep, [place] [address] [address] Aug, [place] [address] [place] [id number] [address] [place] [phone] Aug, [place] [address] [address] Aug, Acute pain of left shoulder M25.512 and Thyroid nodule E04.1 [place] [address] [place] [id number] [address] [place] [phone] July, Superior glenoid labrum lesi on of left shoulder, subsequent encounter S43.432D [facility] [address] [place] [id number] [address] [place] [address] Jun, History of DVT (deep vein th rombosis) Z86.718 [facility] [address] [place] [id number] [address] [place] [address] Jun, History of DVT (deep vein th rombosis) Z86.718 [facility] [address] [place] [id number] [address] [place] [address] Jun, Impingement syndrome, should er, left M75.42 [place] [address] [id number] [address] [place] [address] May, Subacromial bursitis of left shoulder joint M75.52 [place] [address] [facility] [id number] [address] [place] [address] May, [place] [address] [facility] [id number] [address] [place] [id number] May, Hypertriglyceridemia E78.1 ; 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 and Excessive daytime sleepiness G47.19 [place] [address] [facility] [id number] [address] [place] [address] May, History of DVT (deep vein th rombosis) Z86.718 ; Generalized anxiety disorder F41.1 ; Hypertriglyceridemia E78.1 ; 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 ; Subacromial bursitis of left shoulder joint M75.52 and Excessive daytime sleepiness G47.19 [place] [address] [id number] [address] [place] [address] May, [place] [address] [facility] [id number] [address] [place] [address] May, shingles roofer (current) use of a nticoagulants Z79.01 [place] [address] [id number] [address] [place] [id number] Apr, shingles roofer (current) use of a nticoagulants Z79.01 [place] [address] [id number] [address] [place] [address] Apr, shingles roofer (current) use of a nticoagulants Z79.01 [place] [address] [facility] [id number] [address] [place] [address] Apr, residential (current) use of a nticoagulants Z79.01 [place] [address] [facility] [id number] [address] [place] [id number] Apr, [facility] [address] [id number] [address] [place] [id number] 16 Apr, 2017 residential (current) use of a nticoagulants Z79.01 [facility] [address] [id number] [address] [place] [phone] 13 Apr, 2017 shingles roofer (current) use of a nticoagulants Z79.01 [facility] [address] [id number] [address] [place] [address] Apr, residential (current) use of a nticoagulants Z79.01 [facility] [address] [id number] [address] [place] [address] Apr, residential (current) use of a nticoagulants Z79.01 [facility] [address] [id number] [address] [place] [address] Apr, shingles roofer (current) use of a nticoagulants Z79.01 [facility] [address] [id number] [address] [place] [address] Apr, shingles roofer (current) use of a nticoagulants Z79.01 [facility] [address] [id number] [address] [place] [address] Mar, residential (current) use of a nticoagulants Z79.01 [facility] [address] [id number] [address] [place] [id number] Mar, [facility] [address] [id number] [address] [place] [address] Mar, residential (current) use of a nticoagulants Z79.01 [facility] [address] [id number] [address] [place] [id number] Jan, Dental examination Z01.20 [facility] [address] [id number] [address] [place] [id number] Jan, [facility] [address] [id number] [address] [place] [address] Jan, residential (current) use of a nticoagulants Z79.01 [facility] [address] [id number] [address] [place] [phone] Jan, History of DVT (deep vein th rombosis) Z86.718 [facility] [address] [id number] [address] [place] [id number] Jan, Generalized anxiety disorder F41.1 and Peripheral edema R60.9 [place] [address] [id number] [address] [place] [id number] Nov, History of DVT (deep vein th rombosis) Z86.718 [facility] [address] [facility] [id number] [address] [place] [id number] Nov, shingles roofer (current) use of a nticoagulants Z79.01 [facility] [address] [id number] [address] [place] [phone] Nov, Acute non-recurrent maxillar y sinusitis J01.00 [facility] [address] [id number] [address] [place] [phone] Oct, shingles roofer (current) use of a nticoagulants Z79.01 [facility] [address] [id number] [address] [place] [address] Oct, Personal history of venous t hrombosis and embolism Z86.718 [facility] [address] [id number] [address] [place] [id number] Sep, [facility] [address] [id number] [address] [place] [address] Sep, Personal history of venous t hrombosis and embolism Z86.718 [facility] [address] [facility] [id number] [address] [place] [id number] Sep, shingles roofer (current) use of a nticoagulants Z79.01 [facility] [address] [id number] [address] [place] [id number] Sep, shingles roofer (current) use of a nticoagulants Z79.01 [facility] [address] [id number] [address] [place] [phone] Sep, Generalized anxiety disorder F41.1 and History of DVT (deep vein thrombosis) Z86.718 [place] [address] [id number] [address] [place] [address] Aug, History of DVT (deep vein th rombosis) Z86.718 ; Generalized anxiety disorder F41.1 ; 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 ; Pelvic pain R10.2 ; Hypertriglyceridemia E78.1 ; Excessive daytime sleepiness G47.19 ; Colon cancer screening Z12.11 ; Screening for breast cancer Z12.39 ; Peripheral edema R60.9 and Gastroesophageal reflux disease, esophagitis presence not specified K21.9 [place] [address] [facility] [id number] [address] [place] [address] Aug, [place] [address] [facility] [id number] [address] [place] [phone] July, [place] [address] [facility] [id number] [address] [place] [address] July, History of DVT (deep vein th rombosis) Z86.718 [place] [address] [facility] [id number] [address] [place] [address] Jun, Generalized anxiety disorder F41.1 [place] [address] [facility] [id number] [address] [place] [phone] Jun, History of DVT (deep vein th rombosis) Z86.718 [place] [address] [facility] [id number] [address] [place] [phone] Jun, History of DVT (deep vein th rombosis) Z86.718 [place] [id number] [place] [address] Jun, History of DVT (deep vein th rombosis) Z86.718 [facility] [address] [place] [id number] [address] [place] [address] Jun, History of DVT (deep vein th rombosis) Z86.718 [facility] [id number] [place] [address] May, History of DVT (deep vein th rombosis) Z86.718 [facility] [address] [place] [id number] [address] [place] [address] May, shingles roofer (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 Z79.01 [place] [address] [address] May, shingles roofer (current) use of a nticoagulants Z79.01 [place] [address] [place] [id number] [place] [address] May, History of DVT (deep vein th rombosis) Z86.718 [facility] [address] [place] [id number] [place] [address] Apr, Bacterial conjunctivitis of left eye H10.9 and H/O motion sickness Z87.898 [facility] [address] [place] [address] Apr, History of DVT (deep vein th rombosis) Z86.718 [place] [address] [place] [id number] [address] [place] [phone] Apr, History of DVT (deep vein th rombosis) Z86.718 [place] [address] [place] [id number] [address] [place] [address] Apr, History of DVT (deep vein th rombosis) Z86.718 [facility] [address] [place] [id number] [address] [place] [phone] 14 Apr, 2016 residential (current) use of a nticoagulants Z79.01 [facility] [address] [id number] [address] [place] [address] Mar, [facility] [address] [facility] [id number] [address] [place] [address] Mar, residential (current) use of a nticoagulants Z79.01 [facility] [address] [id number] [address] [place] [address] Mar, Hypertriglyceridemia E78.1 a nd 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 [place] [address] [id number] [address] [place] [address] Feb, residential (current) use of a nticoagulants Z79.01 [place] [address] [facility] [id number] [address] [place] [address] Feb, residential (current) use of a nticoagulants Z79.01 [place] [address] [id number] [address] [place] [address] Feb, residential (current) use of a nticoagulants Z79.01 [facility] [address] [id number] [address] [place] [address] Dec, [place] [address] [facility] [id number] [address] [place] [address] Nov, [facility] [address] [id number] [address] [place] [address] Nov, History of DVT (deep vein th rombosis) Z86.718 ; Tremulousness R25.1 ; Generalized anxiety disorder F41.1 ; Peripheral edema R60.9 and Hypertriglyceridemia E78.1 [place] [address] [facility] [id number] [address] [place] [address] Oct, History of DVT (deep vein th rombosis) Z86.718 [facility] [address] [id number] [address] [place] [address] Oct, [place] [address] [facility] [id number] [address] [place] [address] Sep, History of DVT (deep vein th rombosis) Z86.718 [place] [address] [facility] [id number] [address] [place] [address] Sep, shingles roofer (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 of a 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 Z79.01 [place] [address] [id number] [address] [place] [address] July, [place] [address] [facility] [id number] [address] [place] [phone] July, shingles roofer (current) use of a nticoagulants Z79.01 [place] [address] [facility] [id number] [address] [place] [address] July, residential (current) use of a nticoagulants Z79.01 [place] [address] [facility] [id number] [address] [place] [address] Jun, shingles roofer (current) use of a nticoagulants Z79.01 [facility] [place] [address] [facility] [id number] [address] [place] [address] Jun, Coccyx pain M53.3 ; Encounte r for therapeutic drug level monitoring Z51.81 and shingles roofer current use 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.01 [place] [address] [facility] [id number] [address] [place] [address] May, Abnormal mammogram R92.8 [facility] [address] [facility] [id number] [address] [place] [phone] May, [facility] [place] [address] [facility] [id number] [address] [place] [address] May, Acute vaginitis N76.0 and En counter for other screening for malignant neoplasm of breast Z12.39 [place] [address] [place] [id number] [address] [place] [phone] Apr, [facility] [address] [id number] [address] [place] [phone] Apr, [facility] [address] [facility] [id number] [address] [place] [address] Apr, Peripheral edema R60.9 [facility] [address] [facility] [id number] [address] [place] [address] Apr, shingles roofer (current) use of a nticoagulants Z79.01 [facility] [address] [id number] [address] [place] [address] Apr, Peripheral edema R60.9 and L jose martin term (current) 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 Z79.01 [place] [address] [facility] [id number] [address] [place] [address] Apr, residential (current) use of a nticoagulants Z79.01 [place] [address] [id number] [address] [place] [address] Apr, [facility] [address] [facility] [id number] [address] [place] [address] Apr, residential (current) use of a nticoagulants Z79.01 [place] [address] [facility] [id number] [address] [place] [address] Apr, Peripheral edema R60.9 [facility] [address] [facility] [id number] [address] [place] [phone] Mar, shingles roofer (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 a 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 Z79.01 [facility] [address] [facility] [id number] [address] [place] [address] Mar, residential (current) use of a nticoagulants Z79.01 and Hypertriglyceridemia E78.1 [place] [address] [facility] [id number] [address] [place] [address] Mar, residential (current) use of a nticoagulants Z79.01 [facility] [address] [id number] [address] [place] [phone] Mar, residential (current) use of a nticoagulants Z79.01 [place] [address] [id number] [address] [place] [address] Mar, [place] [address] [id number] [address] [place] [address] Mar, residential (current) use of a nticoagulants Z79.01 ; Hypertriglyceridemia E78.1 ; Personal history of venous thrombosis and embolism Z86.718 and Lump R22.9 [place] [address] [id number] [address] [place] [address] Mar, Personal history of venous t hrombosis and embolism Z86.718 [place] [address] [id number] [address] [place] [address] Mar, Personal history of venous t hrombosis and embolism Z86.718 [place] [address] [id number] [address] [place] [phone] Mar, [place] [address] [id number] [address] [place] [address] Dec, Personal history of venous t hrombosis and embolism Z86.718 [place] [address] [id number] [address] [place] [phone] Dec, Personal history of venous t hrombosis and embolism V12.51 [place] [address] [id number] [address] [place] [address] Nov, Personal history of venous t hrombosis and embolism V12.51 [place] [address] [id number] [address] [place] [address] Nov, Personal history of venous t hrombosis and embolism V12.51 [place] [address] [id number] [address] [place] [phone] Nov, Personal history of venous t hrombosis and embolism V12.51 [facility] [address] [id number] [address] [place] [phone] Nov, Personal history of venous t hrombosis and embolism V12.51 [facility] [address] [id number] [address] [place] [phone] Nov, [facility] [address] [id number] [address] [place] [phone] Oct, Dysuria 788.1 [place] [address] [id number] [address] [place] [phone] Oct, Personal history of venous t hrombosis and embolism V12.51 [facility] [address] [id number] [address] [place] [phone] Oct, [facility] [address] [id number] [address] [place] [phone] Oct, Personal history of venous t hrombosis and embolism V12.51 [place] [address] [id number] [address] [place] [phone] Sep, Personal history of venous t hrombosis and embolism V12.51 [place] [id number] [id number] [address] [place] [phone] Sep, Personal history of venous t hrombosis and embolism V12.51 [facility] [address] [id number] [address] [place] [phone] Aug, Personal history of venous t hrombosis and embolism V12.51 [place] [address] [id number] [address] [place] [phone] Aug, Personal history of venous t hrombosis and embolism V12.51 [facility] [address] [id number] [address] [place] [phone] Aug, Personal history of venous t hrombosis and embolism V12.51 [facility] [address] [id number] [address] [place] [phone] July, Generalized anxiety disorder 300.02 ; Abdominal pain, left lower quadrant 789.04 and Personal history of venous thrombosis and embolism V12.51 [facility] [address] [id number] [address] [place] [phone] 14 Jun, 2014 [facility] [address] [id number] [address] [place] [phone] Jun, [facility] [address] [id number] [address] [place] [phone] May, [facility] [facility] [address] [id number] [address] [place] [id number] May, [facility] [address] [id number] [address] [place] [id number] May, [facility] [address] [id number] [address] [place] [id number] May, [facility] [address] [id number] [address] [place] [id number] May, [facility] [address] [id number] [address] [place] [id number] May, [facility] [address] [id number] [address] [place] [id number] May, [facility] [address] [id number] [address] [place] [id number] May, [facility] [address] [id number] [address] [place] [id number] Apr, [facility] [address] [id number] [address] [place] [id number] Apr, [facility] [address] [id number] [address] [place] [id number] Apr, [facility] [address] [id number] [address] [place] [id number] Apr, [facility] [address] [id number] [address] [place] [address], [place] [address] Apr, [facility] [address] [id number] [address] [place] [address], [place] [address] Mar, [facility] [address] [id number] [address] [place] [address], [place] [address] Mar, [facility] [address] [id number] [address] [place] [address], [place] [address] Mar, [facility] [address] [id number] [address] [place] [address], [place] [id number] Mar, [facility] [address] [id number] [address] [place] [address], [place] [address] Mar, [facility] [address] [id number] [address] [place] [address], [place] [id number] Mar, [facility] [address] [id number] [address] [place] [address], [place] [address] Feb, [facility] [address] [id number] [address] [place] [address], [place] [address] Feb, [facility] [address] [id number] [address] [place] [address], [place] [address] Feb, [facility] [address] [id number] [address] [place] [address], [place] [address] Feb, [facility] [address] [id number] [address] [place] [address], [place] [address] Feb, [facility] [address] [id number] [address] [place] [address], [place] [address] Feb, [facility] [address] [id number] [address] [place] [address], [place] [address] Feb, [facility] [address] [id number] [address] [place] [address], [place] [address] Feb, [facility] [address] [id number] [address] [place] [address], [place] [address] Feb, [facility] [address] [id number] [address] [place] [address], [place] [address] Feb, [facility] [address] [id number] [address] [place] [address], [place] [address] Jan, [facility] [address] [id number] [address] [place] [address], [place] [address] Jan, [facility] [address] [id number] [address] [place] [address], [place] [address] Jan, [facility] [address] [id number] [address] [place] [address], [place] [address] Jan, [facility] [address] [id number] [address] [place] [address], [place] [address] Jan, [facility] [address] [id number] [address] [place] [address], [place] [address] Jan, [facility] [address] [id number] [address] [place] [address], [place] [address] Jan, [facility] [address] [id number] [address] [place] [address], [place] [address] Jan, [facility] [address] [id number] [address] [place] [address], [place] [address] Jan, [facility] [address] [id number] [address] [place] [address], [place] [address] Jan, [facility] [address] [id number] [address] [place] [address], [place] [address] Dec, [facility] [address] [id number] [address] [place] [address], [place] [address] Dec, [facility] [address] [id number] [address] [place] [address], [place] [address] Dec, [facility] [address] [id number] [address] [place] [address], [place] [address] Dec, [facility] [address] [id number] [address] [place] [address], [place] [address] Dec, [facility] [address] [id number] [address] [place] [address], [place] [address] Dec, [facility] [address] [id number] [address] [place] [address], [place] [address] Dec, [facility] [address] [id number] [address] [place] [address], [place] [address] Dec, [facility] [address] [id number] [address] [place] [address], [place] [address] Dec, [facility] [address] [id number] [address] [place] [address], [place] [address] Dec, [facility] [address] [id number] [address] [place] [address], [place] [address] Dec, [facility] [address] [id number] [address] [place] [address], [place] [address] Dec, [facility] [address] [id number] [address] [place] [address], [place] [address] Dec, [facility] [address] [id number] [address] [place] [id number] Dec, [facility] [address] [id number] [address] [place] [address], [place] [address] Dec, [facility] [address] [id number] [address] [place] [id number] Nov, [facility] [address] [id number] [address] [place] [address], [place] [address] Nov, [facility] [address] [id number] [address] [place] [address], [place] [address] Nov, [facility] [address] [id number] [address] [place] [address], [place] [address] Nov, [facility] [address] [id number] [facility] [place] [address] 24 Sep, 2013 [facility] [address] [id number] [address] [place] [address], [place] [address] 24 Sep, 2013 [facility] [address] [id number] [address] [place] [address], [place] [address] 23 Sep, 2013 [facility] [address] [id number] [address] [place] [address], [place] [address] 23 Sep, 2013 [facility] [address] [id number] [address] [place] [address], [place] [address] 18 Sep, 2013 [facility] [address] [id number] [address] [place] [address], [place] [address] 18 Nov, 2013 [facility] [address] [id number] [address] [place] [address], [place] [address] 17 Nov, 2013 [facility] [address] [id number] [address] [place] [address], [place] [address] 17 Nov, 2013 [facility] [address] [id number] [address] [place] [address], [place] [address] 11 Nov, 2013 [facility] [address] [id number] [address] [place] [address], [place] [address] 11 Nov, 2013 [facility] [address] [id number] [address] [place] [address], [place] [address] 10 Nov, 2013 [facility] [address] [id number] [address] [place] [address], [place] [address] 10 Nov, 2013 [facility] [address] [id number] [address] [place] [address], [place] [address] 08 Nov, 2013 [facility] [address] [id number] [address] [place] [address], [place] [address] 08 Nov, 2013 [facility] [address] [id number] [address] [place] [address], [place] [address] 22 Sep, 2013 [facility] [address] [id number] [address] [place] [address], [place] [address] 22 Sep, 2013 [facility] [address] [id number] [facility] [place] [address] Sep, [facility] [address] [id number] [facility] [place] [address] Sep, [facility] [address] [id number] [facility] [place] [address] Sep, [facility] [address] [id number] [facility] [place] [address] Sep, [facility] [address] [id number] [facility] [place] [address] Aug, [facility] [address] [id number] [address] [place] [address], [place] [address] Aug, [facility] [address] [id number] [facility] [place] [address] Aug, [facility] [address] [id number] [address] [place] [address], [place] [address] Aug, [facility] [address] [id number] [address] [place] [address], [place] [address] Aug, [facility] [address] [id number] [address] [place] [address], [place] [address] Aug, [facility] [address] [id number] [address] [place] [address], [place] [address] Aug, [facility] [address] [id number] [address] [place] [address], [place] [address] Aug, [facility] [address] [id number] [address] [place] [address], [place] [address] Aug, [facility] [address] [id number] [address] [place] [address], [place] [address] Aug, [facility] [address] [id number] [address] [place] [address], [place] [address] Aug, [facility] [address] [id number] [address] [place] [address], [place] [address] July, [facility] [address] [id number] [address] [place] [address], [place] [address] July, [facility] [address] [id number] [address] [place] [address], [place] [address] Jun, [facility] [address] [id number] [address] [place] [address], [place] [address] Jun, [facility] [address] [id number] [address] [place] [address], [place] [address] Jun, [facility] [address] [id number] [address] [place] [address], [place] [address] Jun, [facility] [address] [id number] [address] [place] [address], [place] [address] Jun, [facility] [address] [id number] [address] [place] [address], [place] [address] Jun, [facility] [address] [id number] [address] [place] [address], [place] [address] Jun, [facility] [address] [id number] [address] [place] [address], [place] [address] Jun, [facility] [address] [id number] [address] [place] [address], [place] [address] Jun, [facility] [address] [id number] [address] [place] [address], [place] [address] Jun, [facility] [address] [id number] [address] [place] [address], [place] [address] Jun, [facility] [address] [id number] [address] [place] [address], [place] [address] Jun, [facility] [address] [id number] [address] [place] [address], [place] [address] May, [facility] [address] [id number] [address] [place] [address], [place] [address] May, [facility] [address] [id number] [facility] [place] [address] 20 May, 2013 [facility] [address] [id number] [facility] [place] [address] May, [facility] [address] [id number] [facility] [place] [address] May, [facility] [address] [id number] [address] [place] [address], [place] [address] May, [facility] [address] [id number] [address] [place] [address], [place] [address] May, [facility] [address] [id number] [address] [place] [address], [place] [address] May, [facility] [address] [id number] [address] [place] [address], [place] [address] May, [facility] [address] [id number] [address] [place] [address], [place] [address] May, [facility] [address] [id number] [address] [place] [address], [place] [address] May, [facility] [address] [id number] [address] [place] [address], [place] [address] May, [facility] [address] [id number] [address] [place] [address], [place] [address] Apr, [facility] [address] [id number] [address] [place] [address], [place] [address] Apr, [facility] [address] [id number] [address] [place] [address], [place] [address] Apr, [facility] [address] [id number] [address] [place] [address], [place] [address] Apr, [facility] [address] [id number] [address] [place] [address], [place] [address] Apr, [facility] [address] [id number] [address] [place] [address], [place] [address] Apr, [facility] [address] [id number] [address] [place] [address], [place] [address] Apr, [facility] [address] [id number] [address] [place] [address], [place] [address] Apr, [facility] [address] [id number] [address] [place] [address], [place] [address] Apr, [facility] [address] [id number] [address] [place] [address], [place] [address] Apr, [facility] [address] [id number] [address] [place] [address], [place] [address] Apr, [facility] [address] [id number] [address] [place] [address], [place] [address] Apr, [facility] [address] [id number] [address] [place] [address], [place] [address] Apr, [facility] [address] [id number] [address] [place] [address], [place] [address] Apr, [facility] [address] [id number] [address] [place] [address], [place] [address] Apr, [facility] [address] [id number] [address] [place] [address], [place] [address] Apr, [facility] [address] [id number] [address] [place] [address], [place] [address] Apr, [facility] [address] [id number] [address] [place] [address], [place] [address] Jan, [facility] [address] [id number] [address] [place] [address], [place] [address] Jan, [facility] [address] [id number] [address] [place] [address], [place] [address] Jan, [facility] [address] [id number] [address] [place] [address], [place] [address] Jan, [facility] [address] [id number] [address] [place] [address], [place] [address] Jan, [facility] [address] [id number] [address] [place] [address], [place] [address] Jan, [facility] [address] [id number] [address] [place] [address], [place] [address] Jan, [facility] [address] [id number] [address] [place] [address], [place] [address] Dec, [facility] [address] [id number] [address] [place] [address], [place] [address] Dec, [facility] [address] [id number] [address] [place] [address], [place] [address] Dec, [facility] [address] [id number] [address] [place] [address], [place] [address] Nov, [facility] [address] [id number] [address] [place] [address], [place] [address] Nov, [facility] [address] [id number] [address] [place] [address], [place] [address] 05 Nov, 2012 [facility] [address] [id number] [address] [place] [address], [place] [address] Nov, [facility] [address] [id number] [address] [place] [address], [place] [address] Oct, [facility] [address] [id number] [address] [place] [address], [place] [address] Oct, [facility] [address] [id number] [address] [place] [address], [place] [address] Oct, [facility] [address] [id number] [address] [place] [address], [place] [address] Oct, [facility] [address] [id number] [address] [place] [address], [place] [address] Oct, [facility] [address] [id number] [address] [place] [address], [place] [address] Sep, [facility] [address] [id number] [address] [place] [address], [place] [address] Sep, [facility] [address] [id number] [address] [place] [address], [place] [address] Sep, [facility] [address] [id number] [address] [place] [address], [place] [address] Sep, [facility] [address] [id number] [address] [place] [address], [place] [address] Sep, [facility] [address] [id number] [address] [place] [address], [place] [address] Sep, [facility] [address] [id number] [address] [place] [address], [place] [address] Sep, [facility] [address] [id number] [address] [place] [address], [place] [address] Aug, [facility] [address] [id number] [address] [place] [address], [place] [id number] Aug, [facility] [address] [id number] [address] [place] [address], [place] [id number] July, [facility] [address] [id number] [address] [place] [address], [place] [id number] Jun, [facility] [address] [id number] [address] [place] [address], [place] [id number] Jun, [facility] [address] [id number] [address] [place] [address], [place] [id number] Jun, [facility] [address] [id number] [address] [place] [address], [place] [id number] Apr, [facility] [address] [id number] [address] [place] [address], [place] [id number] Apr, [facility] [address] [id number] [address] [place] [address], [place] [id number] Apr, [facility] [address] [id number] [address] [place] [address], [place] [address] Mar, [facility] [address] [id number] [address] [place] [address], [place] [id number] 24 Mar, 2012 [facility] [address] [id number] [address] [place] [address], [place] [id number] 2012 [facility] [address] [id number] [address] [place] [address], [place] [id number] 09 Mar, 2012 [facility] [address] [id number] [address] [place] [address], [place] [id number] Mar, [facility] [address] [id number] [address] [place] [address], [place] [id number] 14 Feb, 2012 [facility] [address] [id number] [address] [place] [address], [place] [id number] 14 Feb, 2012 [facility] [address] [id number] [address] [place] [address], [place] [id number] 13 Jan, 2012 [facility] [address] [id number] [address] [place] [address], [place] [id number] 13 Jan, 2012 [facility] [address] [id number] [address] [place] [address], [place] [id number] Jan, [facility] [address] [id number] [address] [place] [address], [place] [id number] 13 Jan, 2012 [facility] [address] [id number] [address] [place] [address], [place] [id number] Jan, [facility] [address] [id number] [address] [place] [address], [place] [id number] 07 Jan, 2012 [facility] [address] [id number] [address] [place] [address], [place] [id number] 06 Jan, 2012 [facility] [address] [id number] [address] [place] [address], [place] [id number] Dec, [facility] [address] [id number] [address] [place] [address], [place] [id number] Dec, [facility] [address] [id number] [address] [place] [address], [place] [id number] Dec, [facility] [address] [id number] [address] [place] [address], [place] [id number] Dec, [facility] [address] [id number] [address] [place] [address], [place] [id number] Dec, [facility] [address] [id number] [address] [place] [address], [place] [address] Dec, [facility] [address] [id number] [address] [place] [address], [place] [id number] Dec, [facility] [address] [id number] [address] [place] [address], [place] [id number] Dec, [facility] [address] [id number] [address] [place] [address], [place] [id number] Dec, [facility] [address] [id number] [address] [place] [address], [place] [id number] Dec, [facility] [address] [id number] [address] [place] [address], [place] [id number] Oct, [facility] [address] [id number] [address] [place] [id number] Oct, [facility] [address] [id number] [address] [place] [id number] Aug, [facility] [address] [id number] [address] [place] [id number] Aug, [facility] [address] [id number] [address] [place] [address], [place] [id number] July, [facility] [address] [id number] [address] [place] [address], [place] [address] Jun, [facility] [address] [id number] [address] [place] [address], [place] [id number] Jun, [facility] [address] [id number] [address] [place] [address], [place] [id number] May, [facility] [address] [id number] [address] [place] [address], [place] [id number] Apr, [facility] [address] [id number] [address] [place] [address], [place] [id number] 16 Apr, 2011 [facility] [address] [id number] [address] [place] [address], [place] [address] Mar, [facility] [address] [id number] [address] [place] [address], [place] [id number] Mar, [facility] [address] [id number] [address] [place] [address], [place] [id number] 19 Feb, 2011 [facility] [address] [id number] [address] [place] [address], [place] [id number] 15 Feb, 2011 [facility] [address] [id number] [address] [place] [address], [place] [id number] Feb, [facility] [address] [id number] [address] [place] [address], [place] [id number] 13 Feb, 2011 [facility] [address] [id number] [address] [place] [address], [place] [id number] Jan, [facility] [address] [id number] [address] [place] [address], [place] [id number] 17 Dec, 2010 [facility] [address] [id number] [address] [place] [address], [place] [id number] 08 Feb, 2010 [facility] [address] [id number] [address] [place] [address], [place] [id number] Feb, [facility] [address] [id number] [address] [place] [address], [place] [phone] Feb, [facility] [address] [id number] [address] [place] [address], [place] [id number] Feb, [facility] [address] [id number] [address] [place] [address], [place] [phone] Dec, [facility] [address] [id number] [address] [place] [id number] Dec, [facility] [address] [id number] [address] [place] [id number] Oct, [facility] [address] [id number] [address] [place] [id number] Jun, [facility] [address] [id number] [address] [place] [id number] Feb, [facility] [address] [id number] [address] [place] [id number] Feb, [facility] [address] [id number] [address] [place] [id number] Feb, [facility] [address] [facility] [id number] [address] [place] [phone] Dec, IMMUNIZATIONS No Known Immunizations SOCIAL HISTORY [...]
--- OUTSIDE RECORDS SUMMARY | 2019-10-19 12:29 | XMS REPORT ---
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 Active 306954186 Problem Hypertriglyceridemia E78.1 Active 795464096 Problem 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 Active 461239028 Problem Pelvic pain R10.2 Active 94377062 Problem Peripheral edema R60.9 Active 271 211584 Problem Moderate episode of recurrent major depressive disorder F33.1 Active 376984420 Problem Presence of IVC filter Z95.828 Active 814345636 Problem Vitamin D deficiency E55.9 Active 21600845 Problem Generalized anxiety disorder F41.1 A ctive 174978613 Problem Excessive daytime sleepiness G47.19 A ctive 450156762373 Problem Gastroesophageal reflux disease, esophagitis pre sence not specified K21.9 Active 095150189 Problem Thyroid nodule E04.1 Active 93428 5005 Problem Morbid obesity E66.01 Active 12200 6002 ALLERGIES No Information ENCOUNTERS Encounter Location Date Diagnosis [facility] [address] [facility] [id number] [address] [place] [address] Nov, Thyroid nodule E04.1 [facility] [address] [facility] [id number] [address] [place] [address] Nov, Thyroid nodule E04.1 [facility] [address] [facility] [id number] [address] [place] [address] Oct, Syncope, unspecified syncope type R55 and Encounter for weight management Z76.89 [facility] [address] [id number] [address] [place] [address] Oct, Morbid obesity E66.01 [facility] [address] [id number] [address] [place] [address] Oct, Hypertriglyceridemia E78.1 [facility] [address] [facility] [id number] [address] [place] [address] Oct, [facility] [address] [id number] [address] [place] [address] Oct, Hypertriglyceridemia E78.1 [place] [address] [facility] [id number] [address] [place] [address] Sep, Hypertriglyceridemia E78.1 a nd Vitamin D deficiency E55.9 [place] [address] [facility] [id number] [address] [place] [address] Sep, [facility] [address] [facility] [id number] [address] [place] [address] Sep, Morbid obesity E66.01 ; Mode rate episode of recurrent major depressive disorder F33.1 ; Hypertriglyceridemia E78.1 and Vitamin D deficiency E55.9 [facility] [address] [facility] [id number] [address] [place] [phone] Aug, [facility] [address] [facility] [id number] [address] [place] [address] July, [facility] [address] [id number] [address] [place] [address] July, [facility] [address] [facility] [id number] [address] [place] [address] Jun, [facility] [address] [facility] [id number] [address] [place] [address] Jun, [facility] [address] [facility] [id number] [address] [place] [address] Jun, Closed compression fracture of L3 lumbar vertebra with routine healing, subsequent encounter S32.030D and Drug-induced constipation K59.03 [facility] [address] [place] [id number] [address] [place] [address] Jun, [facility] [address] [place] [id number] [place] [address] Jun, [facility] [address] [address] Apr, [facility] [address] [address] Apr, Morbid obesity E66.01 [facility] [address] [address] Apr, Morbid obesity E66.01 ; Hype rtriglyceridemia E78.1 ; Gastroesophageal reflux disease, esophagitis presence not specified K21.9 and Joint pain M25.50 [facility] [address] [place] [id number] [address] [place] [address] Feb, [facility] [address] [address] Feb, [facility] [address] [place] [id number] [address] [place] [address] Jan, Acute bacterial conjunctivit is H10.30 [facility] [address] [place] [id number] [address] [place] [address] Dec, [facility] [address] [place] [id number] [address] [place] [address] Dec, [facility] [address] [place] [id number] [address] [place] [address] Nov, [facility] [address] [address] 07 Nov, 2017 Obstructive sleep apnea G47. 33 ; Morbid obesity E66.01 and Gastroesophageal reflux disease, esophagitis presence not specified K21.9 [facility] [address] [facility] [id number] [address] [place] [address] [id number] 06 Nov, 2017 Encounter for examination of eyes and vision without abnormal findings Z01.00 [facility] [address] [facility] [id number] [address] [place] [address] 31 Oct, 2017 Thyroid nodule E04.1 and Scr eening for breast cancer Z12.31 [place] [address] [place] [id number] [place] [address] 23 Oct, 2017 History of DVT (deep vein th rombosis) Z86.718 ; Thyroid nodule E04.1 and Gastroesophageal reflux disease, esophagitis presence not specified K21.9 [place] [address] [address] Oct, [place] [address] [place] [id number] [place] [address] Sep, [place] [address] [address] Aug, [place] [address] [place] [id number] [address] [place] [address] Aug, [place] [address] [address] Aug, Acute pain of left shoulder M25.512 and Thyroid nodule E04.1 [place] [address] [place] [id number] [address] [place] [address] July, Superior glenoid labrum lesi on of left shoulder, subsequent encounter S43.432D [facility] [address] [place] [id number] [address] [place] [address] Jun, History of DVT (deep vein th rombosis) Z86.718 [facility] [address] [place] [id number] [address] [place] [address] Jun, History of DVT (deep vein th rombosis) Z86.718 [facility] [address] [place] [id number] [address] [place] [address] Jun, Impingement syndrome, should er, left M75.42 [place] [address] [id number] [address] [place] [address] May, Subacromial bursitis of left shoulder joint M75.52 [place] [address] [facility] [id number] [address] [place] [address] May, [place] [address] [facility] [id number] [address] [place] [address] May, Hypertriglyceridemia E78.1 ; terminal worker (current) 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 Z79.01 and Excessive daytime sleepiness G47.19 [place] [address] [facility] [id number] [address] [place] [address] May, History of DVT (deep vein th rombosis) Z86.718 ; Generalized anxiety disorder F41.1 ; Hypertriglyceridemia E78.1 ; terminal worker (current) use 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 Z79.01 ; Subacromial bursitis of left shoulder joint M75.52 and Excessive daytime sleepiness G47.19 [place] [address] [id number] [address] [place] [address] May, [place] [address] [facility] [id number] [address] [place] [address] May, terminal worker (current) use of a nticoagulants Z79.01 [place] [address] [id number] [address] [place] [address] Apr, terminal worker (current) use of a nticoagulants Z79.01 [place] [address] [id number] [address] [place] [address] Apr, terminal worker (current) use of a nticoagulants Z79.01 [place] [address] [facility] [id number] [address] [place] [address] Apr, [facility] (current) use of a nticoagulants Z79.01 [place] [address] [facility] [id number] [address] [place] [address] Apr, [facility] [address] [id number] [address] [place] [address] 16 Apr, 2017 [facility] (current) use of a nticoagulants Z79.01 [facility] [address] [id number] [address] [place] [address] 13 Apr, 2017 terminal worker (current) use of a nticoagulants Z79.01 [facility] [address] [id number] [address] [place] [address] Apr, [facility] (current) use of a nticoagulants Z79.01 [facility] [address] [id number] [address] [place] [address] Apr, [facility] (current) use of a nticoagulants Z79.01 [facility] [address] [id number] [address] [place] [address] Apr, terminal worker (current) use of a nticoagulants Z79.01 [facility] [address] [id number] [address] [place] [address] Apr, terminal worker (current) use of a nticoagulants Z79.01 [facility] [address] [id number] [address] [place] [address] Mar, [facility] (current) use of a nticoagulants Z79.01 [facility] [address] [id number] [address] [place] [address] Mar, [facility] [address] [id number] [address] [place] [address] Mar, [facility] (current) use of a nticoagulants Z79.01 [facility] [address] [id number] [address] [place] [id number] Jan, Dental examination Z01.20 [facility] [address] [id number] [address] [place] [address] [id number] Jan, [facility] [address] [id number] [address] [place] [address] Jan, [facility] (current) use of a nticoagulants Z79.01 [facility] [address] [id number] [address] [place] [address] Jan, History of DVT (deep vein th rombosis) Z86.718 [facility] [address] [id number] [address] [place] [address] Jan, Generalized anxiety disorder F41.1 and Peripheral edema R60.9 [place] [address] [id number] [address] [place] [address] Nov, History of DVT (deep vein th rombosis) Z86.718 [facility] [address] [facility] [id number] [address] [place] [address] Nov, terminal worker (current) use of a nticoagulants Z79.01 [facility] [address] [id number] [address] [place] [address] Nov, Acute non-recurrent maxillar y sinusitis J01.00 [facility] [address] [id number] [address] [place] [address] Oct, terminal worker (current) use of a nticoagulants Z79.01 [facility] [address] [id number] [address] [place] [address] Oct, Personal history of venous t hrombosis and embolism Z86.718 [facility] [address] [id number] [address] [place] [address] Sep, [facility] [address] [id number] [address] [place] [address] Sep, Personal history of venous t hrombosis and embolism Z86.718 [facility] [address] [facility] [id number] [address] [place] [address] Sep, terminal worker (current) use of a nticoagulants Z79.01 [facility] [address] [id number] [address] [place] [address] Sep, terminal worker (current) use of a nticoagulants Z79.01 [facility] [address] [id number] [address] [place] [address] Sep, Generalized anxiety disorder F41.1 and History of DVT (deep vein thrombosis) Z86.718 [place] [address] [id number] [address] [place] [address] Aug, History of DVT (deep vein th rombosis) Z86.718 ; Generalized anxiety disorder F41.1 ; terminal worker (current) use of anticoagulants Z79.01 ; Pelvic pain R10.2 ; Hypertriglyceridemia E78.1 ; Excessive daytime sleepiness G47.19 ; Colon cancer screening Z12.11 ; Screening for breast cancer Z12.39 ; Peripheral edema R60.9 and Gastroesophageal reflux disease, esophagitis presence not specified K21.9 [place] [address] [facility] [id number] [address] [place] [address] Aug, [place] [address] [facility] [id number] [address] [place] [address] July, [place] [address] [facility] [id number] [address] [place] [address] July, History of DVT (deep vein th rombosis) Z86.718 [place] [address] [facility] [id number] [address] [place] [address] Jun, Generalized anxiety disorder F41.1 [place] [address] [facility] [id number] [address] [place] [address] Jun, History of DVT (deep vein th rombosis) Z86.718 [place] [address] [facility] [id number] [address] [place] [address] Jun, History of DVT (deep vein th rombosis) Z86.718 [place] [address] [place] [address] Jun, History of DVT (deep vein th rombosis) Z86.718 [facility] [address] [place] [id number] [address] [place] [address] Jun, History of DVT (deep vein th rombosis) Z86.718 [facility] [address] [place] [address] May, History of DVT (deep vein th rombosis) Z86.718 [facility] [address] [place] [id number] [address] [place] [address] May, terminal worker (current) use of a nticoagulants Z79.01 [place] [address] [address] May, terminal worker (current) use of a nticoagulants Z79.01 [place] [address] [place] [id number] [address] [place] [address] May, History of DVT (deep vein th rombosis) Z86.718 [facility] [address] [place] [id number] [address] [place] [address] Apr, Bacterial conjunctivitis of left eye H10.9 and H/O motion sickness Z87.898 [facility] [address] [place] [address] Apr, History of DVT (deep vein th rombosis) Z86.718 [place] [address] [place] [id number] [address] [place] [address] Apr, History of DVT (deep vein th rombosis) Z86.718 [place] [address] [place] [id number] [address] [place] [address] Apr, History of DVT (deep vein th rombosis) Z86.718 [facility] [address] [place] [id number] [address] [place] [address] 14 Apr, 2016 [facility] (current) use of a nticoagulants Z79.01 [facility] [address] [id number] [address] [place] [address] Mar, [facility] [address] [facility] [id number] [address] [place] [address] Mar, [facility] (current) use of a nticoagulants Z79.01 [facility] [address] [id number] [address] [place] [address] Mar, Hypertriglyceridemia E78.1 a nd terminal worker (current) use of anticoagulants Z79.01 [place] [address] [id number] [address] [place] [address] Feb, [facility] (current) use of a nticoagulants Z79.01 [place] [address] [facility] [id number] [address] [place] [address] Feb, [facility] (current) use of a nticoagulants Z79.01 [place] [address] [id number] [address] [place] [address] Feb, [facility] (current) use of a nticoagulants Z79.01 [facility] [address] [id number] [address] [place] [address] Dec, [place] [address] [facility] [id number] [address] [place] [address] Nov, [facility] [address] [id number] [address] [place] [address] Nov, History of DVT (deep vein th rombosis) Z86.718 ; Tremulousness R25.1 ; Generalized anxiety disorder F41.1 ; Peripheral edema R60.9 and Hypertriglyceridemia E78.1 [place] [address] [facility] [id number] [address] [place] [address] Oct, History of DVT (deep vein th rombosis) Z86.718 [facility] [address] [id number] [address] [place] [address] Oct, [place] [address] [facility] [id number] [address] [place] [address] Sep, History of DVT (deep vein th rombosis) Z86.718 [place] [address] [facility] [id number] [address] [place] [address] Sep, terminal worker (current) use of a nticoagulants Z79.01 [place] [address] [id number] [address] [place] [address] July, [place] [address] [facility] [id number] [address] [place] [address] July, terminal worker (current) use of a nticoagulants Z79.01 [place] [address] [facility] [id number] [address] [place] [address] July, [facility] (current) use of a nticoagulants Z79.01 [place] [address] [facility] [id number] [address] [place] [address] Jun, terminal worker (current) use of a nticoagulants Z79.01 [facility] [place] [address] [facility] [id number] [address] [place] [address] Jun, Coccyx pain M53.3 ; Encounte r for therapeutic drug level monitoring Z51.81 and terminal worker current use 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.01 [place] [address] [facility] [id number] [address] [place] [address] May, Abnormal mammogram R92.8 [facility] [address] [facility] [id number] [address] [place] [address] May, [facility] [place] [address] [address] [facility] [id number] [address] [place] [address] May, Acute vaginitis N76.0 and En counter for other screening for malignant neoplasm of breast Z12.39 [place] [address] [place] [id number] [address] [place] [address] Apr, [facility] [address] [id number] [address] [place] [address] Apr, [facility] [address] [facility] [id number] [address] [place] [address] Apr, Peripheral edema R60.9 [facility] [address] [facility] [id number] [address] [place] [address] Apr, terminal worker (current) use of a nticoagulants Z79.01 [facility] [address] [id number] [address] [place] [address] Apr, Peripheral edema R60.9 and L jose martin term (current) 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 Z79.01 [place] [address] [facility] [id number] [address] [place] [address] Apr, [facility] (current) use of a nticoagulants Z79.01 [place] [address] [id number] [address] [place] [address] Apr, [facility] [address] [facility] [id number] [address] [place] [address] Apr, [facility] (current) use of a nticoagulants Z79.01 [place] [address] [facility] [id number] [address] [place] [address] Apr, Peripheral edema R60.9 [facility] [address] [facility] [id number] [address] [place] [id number] Mar, terminal worker (current) use of a nticoagulants Z79.01 [facility] [address] [facility] [id number] [address] [place] [phone] Mar, [facility] (current) use of a nticoagulants Z79.01 and Hypertriglyceridemia E78.1 [place] [address] [facility] [id number] [address] [place] [id number] Mar, [facility] (current) use of a nticoagulants Z79.01 [facility] [address] [id number] [address] [place] [id number] Mar, [facility] (current) use of a nticoagulants Z79.01 [place] [address] [id number] [address] [place] [phone] Mar, [place] [address] [id number] [address] [place] [id number] Mar, [facility] (current) use of a nticoagulants Z79.01 ; Hypertriglyceridemia E78.1 ; Personal history of venous thrombosis and embolism Z86.718 and Lump R22.9 [place] [address] [id number] [address] [place] [phone] Mar, Personal history of venous t hrombosis and embolism Z86.718 [place] [address] [id number] [address] [place] [phone] Mar, Personal history of venous t hrombosis and embolism Z86.718 [place] [address] [id number] [address] [place] [phone] Mar, [place] [address] [id number] [address] [place] [phone] Dec, Personal history of venous t hrombosis and embolism Z86.718 [place] [address] [id number] [address] [place] [id number] Dec, Personal history of venous t hrombosis and embolism V12.51 [place] [address] [id number] [address] [place] [phone] Nov, Personal history of venous t hrombosis and embolism V12.51 [place] [address] [id number] [address] [place] [id number] Nov, Personal history of venous t hrombosis and embolism V12.51 [place] [address] [id number] [address] [place] [phone] Nov, Personal history of venous t hrombosis and embolism V12.51 [facility] [address] [id number] [address] [place] [id number] Nov, Personal history of venous t hrombosis and embolism V12.51 [facility] [address] [id number] [address] [place] [phone] Nov, [facility] [address] [id number] [address] [place] [address] Oct, Dysuria 788.[address] [place] [address] [id number] [address] [place] [address] Oct, Personal history of venous t hrombosis and embolism V12.51 [facility] [address] [id number] [address] [place] [address] Oct, [facility] [address] [id number] [address] [place] [address] Oct, Personal history of venous t hrombosis and embolism V12.51 [place] [address] [id number] [address] [place] [address] Sep, Personal history of venous t hrombosis and embolism V12.51 [place] [id number] [id number] [address] [place] [address] Sep, Personal history of venous t hrombosis and embolism V12.51 [facility] [address] [id number] [address] [place] [address] Aug, Personal history of venous t hrombosis and embolism V12.51 [place] [address] [id number] [address] [place] [address] Aug, Personal history of venous t hrombosis and embolism V12.51 [facility] [address] [id number] [address] [place] [address] Aug, Personal history of venous t hrombosis and embolism V12.51 [facility] [address] [id number] [address] [place] [address] July, Generalized anxiety disorder 300.02 ; Abdominal pain, left lower quadrant 789.04 and Personal history of venous thrombosis and embolism V12.51 [facility] [address] [id number] [address] [place] [address] 14 Jun, 2014 [facility] [address] [id number] [address] [place] [address] Jun, [facility] [address] [id number] [address] [place] [address] May, [facility] [address] [id number] [address] [place] [address] May, [facility] [address] [id number] [address] [place] [address] May, [facility] [address] [id number] [address] [place] [address] May, [facility] [address] [id number] [address] [place] [address] May, [facility] [address] [id number] [address] [place] [address] May, [facility] [address] [id number] [address] [place] [address] May, [facility] [address] [id number] [address] [place] [address] May, [facility] [address] [id number] [address] [place] [address] Apr, [facility] [address] [id number] [address] [place] [address] Apr, [facility] [address] [id number] [address] [place] [address] Apr, [facility] [address] [id number] [address] [place] [address] Apr, [facility] [address] [id number] [address] [place] [address], [place] [address] Apr, [facility] [address] [id number] [address] [place] [address], [place] [address] Mar, [facility] [address] [id number] [address] [place] [address], [place] [address] Mar, [facility] [address] [id number] [address] [place] [address], [place] [address] Mar, [facility] [address] [id number] [address] [place] [address], [place] [address] Mar, [facility] [address] [id number] [address] [place] [address], [place] [address] Mar, [facility] [address] [id number] [address] [place] [address], [place] [address] Mar, [facility] [address] [id number] [address] [place] [address], [place] [address] Feb, [facility] [address] [id number] [address] [place] [address], [place] [address] Feb, [facility] [address] [id number] [address] [place] [address], [place] [address] Feb, [facility] [address] [id number] [address] [place] [address], [place] [address] Feb, [facility] [address] [id number] [address] [place] [address], [place] [address] Feb, [facility] [address] [id number] [address] [place] [address], [place] [address] Feb, [facility] [address] [id number] [address] [place] [address], [place] [address] Feb, [facility] [address] [id number] [address] [place] [address], [place] [address] Feb, [facility] [address] [id number] [address] [place] [address], [place] [address] Feb, [facility] [address] [id number] [address] [place] [address], [place] [address] Feb, [facility] [address] [id number] [address] [place] [address], [place] [address] Jan, [facility] [address] [id number] [address] [place] [address], [place] [address] Jan, [facility] [address] [id number] [address] [place] [address], [place] [address] Jan, [facility] [address] [id number] [address] [place] [address], [place] [address] Jan, [facility] [address] [id number] [address] [place] [address], [place] [address] Jan, [facility] [address] [id number] [address] [place] [address], [place] [address] Jan, [facility] [address] [id number] [address] [place] [address], [place] [address] Jan, [facility] [address] [id number] [address] [place] [address], [place] [address] Jan, [facility] [address] [id number] [address] [place] [address], [place] [address] Jan, [facility] [address] [id number] [address] [place] [address], [place] [address] Jan, [facility] [address] [id number] [address] [place] [address], [place] [address] Dec, [facility] [address] [id number] [address] [place] [address], [place] [address] Dec, [facility] [address] [id number] [address] [place] [address], [place] [address] Dec, [facility] [address] [id number] [address] [place] [address], [place] [address] Dec, [facility] [address] [id number] [address] [place] [address], [place] [address] Dec, [facility] [address] [id number] [address] [place] [address], [place] [address] Dec, [facility] [address] [id number] [address] [place] [address], [place] [address] Dec, [facility] [address] [id number] [address] [place] [address], [place] [address] Dec, [facility] [address] [id number] [address] [place] [address], [place] [address] Dec, [facility] [address] [id number] [address] [place] [address], [place] [address] Dec, [facility] [address] [id number] [address] [place] [address], [place] [address] Dec, [facility] [address] [id number] [address] [place] [address], [place] [address] Dec, [facility] [address] [id number] [address] [place] [address], [place] [address] Dec, [facility] [address] [id number] [address] [place] [address] Dec, [facility] [address] [id number] [address] [place] [address], [place] [address] Dec, [facility] [address] [id number] [address] [place] [address] Nov, [facility] [address] [id number] [address] [place] [address], [place] [address] Nov, [facility] [address] [id number] [address] [place] [address], [place] [address] Nov, [facility] [address] [id number] [address] [place] [address], [place] [address] Nov, [facility] [address] [id number] [facility] [place] [address] 24 Sep, 2013 [facility] [address] [id number] [address] [place] [address], [place] [address] 24 Sep, 2013 [facility] [address] [id number] [address] [place] [address], [place] [address] 23 Sep, 2013 [facility] [address] [id number] [address] [place] [address], [place] [address] 23 Sep, 2013 [facility] [address] [id number] [address] [place] [address], [place] [address] 18 Sep, 2013 [facility] [address] [id number] [address] [place] [address], [place] [address] 18 Nov, 2013 [facility] [address] [id number] [address] [place] [address], [place] [address] 17 Nov, 2013 [facility] [address] [id number] [address] [place] [address], [place] [address] 17 Nov, 2013 [facility] [address] [id number] [address] [place] [address], [place] [address] 11 Nov, 2013 [facility] [address] [id number] [address] [place] [address], [place] [address] 11 Nov, 2013 [facility] [address] [id number] [address] [place] [address], [place] [address] 10 Nov, 2013 [facility] [address] [id number] [address] [place] [address], [place] [address] 10 Nov, 2013 [facility] [address] [id number] [address] [place] [address], [place] [address] 08 Nov, 2013 [facility] [address] [id number] [address] [place] [address], [place] [address] 08 Nov, 2013 [facility] [address] [id number] [address] [place] [address], [place] [address] 22 Sep, 2013 [facility] [address] [id number] [address] [place] [address], [place] [address] 22 Sep, 2013 [facility] [address] [id number] [facility] [place] [address] Sep, [facility] [address] [id number] [facility] [place] [address] Sep, [facility] [address] [id number] [facility] [place] [address] Sep, [facility] [address] [id number] [facility] [place] [address] Sep, [facility] [address] [id number] [facility] [place] [address] Aug, [facility] [address] [id number] [address] [place] [address], [place] [address] Aug, [facility] [address] [id number] [facility] [place] [address] Aug, [facility] [address] [id number] [address] [place] [address], [place] [address] Aug, [facility] [address] [id number] [address] [place] [address], [place] [address] Aug, [facility] [address] [id number] [address] [place] [address], [place] [address] Aug, [facility] [address] [id number] [address] [place] [address], [place] [address] Aug, [facility] [address] [id number] [address] [place] [address], [place] [address] Aug, [facility] [address] [id number] [address] [place] [address], [place] [address] Aug, [facility] [address] [id number] [address] [place] [address], [place] [address] Aug, [facility] [address] [id number] [address] [place] [address], [place] [address] Aug, [facility] [address] [id number] [address] [place] [address], [place] [address] July, [facility] [address] [id number] [address] [place] [address], [place] [address] July, [facility] [address] [id number] [address] [place] [address], [place] [address] Jun, [facility] [address] [id number] [address] [place] [address], [place] [address] Jun, [facility] [address] [id number] [address] [place] [address], [place] [address] Jun, [facility] [address] [id number] [address] [place] [address], [place] [address] Jun, [facility] [address] [id number] [address] [place] [address], [place] [address] Jun, [facility] [address] [id number] [address] [place] [address], [place] [address] Jun, [facility] [address] [id number] [address] [place] [address], [place] [address] Jun, [facility] [address] [id number] [address] [place] [address], [place] [address] Jun, [facility] [address] [id number] [address] [place] [address], [place] [address] Jun, [facility] [address] [id number] [address] [place] [address], [place] [address] Jun, [facility] [address] [id number] [address] [place] [address], [place] [address] Jun, [facility] [address] [id number] [address] [place] [address], [place] [address] Jun, [facility] [address] [id number] [address] [place] [address], [place] [address] May, [facility] [address] [id number] [address] [place] [address], [place] [address] May, [facility] [address] [id number] [facility] [place] [address] 20 May, 2013 [facility] [address] [id number] [facility] [place] [address] May, [facility] [address] [id number] [facility] [place] [address] May, [facility] [address] [id number] [address] [place] [address], [place] [address] May, [facility] [address] [id number] [address] [place] [address], [place] [address] May, [facility] [address] [id number] [address] [place] [address], [place] [address] May, [facility] [address] [id number] [address] [place] [address], [place] [address] May, [facility] [address] [id number] [address] [place] [address], [place] [address] May, [facility] [address] [id number] [address] [place] [address], [place] [address] May, [facility] [address] [id number] [address] [place] [address], [place] [address] May, [facility] [address] [id number] [address] [place] [address], [place] [address] Apr, [facility] [address] [id number] [address] [place] [address], [place] [address] Apr, [facility] [address] [id number] [address] [place] [address], [place] [address] Apr, [facility] [address] [id number] [address] [place] [address], [place] [address] Apr, [facility] [address] [id number] [address] [place] [address], [place] [address] Apr, [facility] [address] [id number] [address] [place] [address], [place] [address] Apr, [facility] [address] [id number] [address] [place] [address], [place] [address] Apr, [facility] [address] [id number] [address] [place] [address], [place] [address] Apr, [facility] [address] [id number] [address] [place] [address], [place] [address] Apr, [facility] [address] [id number] [address] [place] [address], [place] [address] Apr, [facility] [address] [id number] [address] [place] [address], [place] [address] Apr, [facility] [address] [id number] [address] [place] [address], [place] [address] Apr, [facility] [address] [id number] [address] [place] [address], [place] [address] Apr, [facility] [address] [id number] [address] [place] [address], [place] [address] Apr, [facility] [address] [id number] [address] [place] [address], [place] [address] Apr, [facility] [address] [id number] [address] [place] [address], [place] [address] Apr, [facility] [address] [id number] [address] [place] [address], [place] [address] Apr, [facility] [address] [id number] [address] [place] [address], [place] [address] Jan, [facility] [address] [id number] [address] [place] [address], [place] [address] Jan, [facility] [address] [id number] [address] [place] [address], [place] [address] Jan, [facility] [address] [id number] [address] [place] [address], [place] [address] Jan, [facility] [address] [id number] [address] [place] [address], [place] [address] Jan, [facility] [address] [id number] [address] [place] [address], [place] [address] Jan, [facility] [address] [id number] [address] [place] [address], [place] [address] Jan, [facility] [address] [id number] [address] [place] [address], [place] [address] Dec, [facility] [address] [id number] [address] [place] [address], [place] [address] Dec, [facility] [address] [id number] [address] [place] [address], [place] [address] Dec, [facility] [address] [id number] [address] [place] [address], [place] [address] Nov, [facility] [address] [id number] [address] [place] [address], [place] [address] Nov, [facility] [address] [id number] [address] [place] [address], [place] [address] 05 Nov, 2012 [facility] [address] [id number] [address] [place] [address], [place] [address] Nov, [facility] [address] [id number] [address] [place] [address], [place] [address] Oct, [facility] [address] [id number] [address] [place] [address], [place] [address] Oct, [facility] [address] [id number] [address] [place] [address], [place] [address] Oct, [facility] [address] [id number] [address] [place] [address], [place] [address] Oct, [facility] [address] [id number] [address] [place] [address], [place] [address] Oct, [facility] [address] [id number] [address] [place] [address], [place] [address] Sep, [facility] [address] [id number] [address] [place] [address], [place] [address] Sep, [facility] [address] [id number] [address] [place] [address], [place] [address] Sep, [facility] [address] [id number] [address] [place] [address], [place] [address] Sep, [facility] [address] [id number] [address] [place] [address], [place] [address] Sep, [facility] [address] [id number] [address] [place] [address], [place] [address] Sep, [facility] [address] [id number] [address] [place] [address], [place] [address] Sep, [facility] [address] [id number] [address] [place] [address], [place] [address] Aug, [facility] [address] [id number] [address] [place] [address], [place] [address] Aug, [facility] [address] [id number] [address] [place] [address], [place] [address] July, [facility] [address] [id number] [address] [place] [address], [place] [address] Jun, [facility] [address] [id number] [address] [place] [address], [place] [address] Jun, [facility] [address] [id number] [address] [place] [address], [place] [address] Jun, [facility] [address] [id number] [address] [place] [address], [place] [address] Apr, [facility] [address] [id number] [address] [place] [address], [place] [address] Apr, [facility] [address] [id number] [address] [place] [address], [place] [address] Apr, [facility] [address] [id number] [address] [place] [address], [place] [address] Mar, [facility] [address] [id number] [address] [place] [address], [place] [address] 24 Mar, 2012 [facility] [address] [id number] [address] [place] [address], [place] [address] 2012 [facility] [address] [id number] [address] [place] [address], [place] [address] 09 Mar, 2012 [facility] [address] [id number] [address] [place] [address], [place] [address] Mar, [facility] [address] [id number] [address] [place] [address], [place] [address] 14 Feb, 2012 [facility] [address] [id number] [address] [place] [address], [place] [address] 14 Feb, 2012 [facility] [address] [id number] [address] [place] [address], [place] [address] 13 Jan, 2012 [facility] [address] [id number] [address] [place] [address], [place] [address] 13 Jan, 2012 [facility] [address] [id number] [address] [place] [address], [place] [address] Jan, [facility] [address] [id number] [address] [place] [address], [place] [address] 13 Jan, 2012 [facility] [address] [id number] [address] [place] [address], [place] [address] Jan, [facility] [address] [id number] [address] [place] [address], [place] [address] 07 Jan, 2012 [facility] [address] [id number] [address] [place] [address], [place] [address] 06 Jan, 2012 [facility] [address] [id number] [address] [place] [address], [place] [address] Dec, [facility] [address] [id number] [address] [place] [address], [place] [address] Dec, [facility] [address] [id number] [address] [place] [address], [place] [address] Dec, [facility] [address] [id number] [address] [place] [address], [place] [address] Dec, [facility] [address] [id number] [address] [place] [address], [place] [address] Dec, [facility] [address] [id number] [address] [place] [address], [place] [address] Dec, [facility] [address] [id number] [address] [place] [address], [place] [address] Dec, [facility] [address] [id number] [address] [place] [address], [place] [address] Dec, [facility] [address] [id number] [address] [place] [address], [place] [address] Dec, [facility] [address] [id number] [address] [place] [address], [place] [address] Dec, [facility] [address] [id number] [address] [place] [address], [place] [address] Oct, [facility] [address] [id number] [address] [place] [id number] Oct, [facility] [address] [id number] [address] [place] [id number] Aug, [facility] [address] [id number] [address] [place] [id number] Aug, [facility] [address] [id number] [address] [place] [address], [place] [address] July, [facility] [facility] [address] [id number] [address] [place] [address], [place] [address] Jun, [facility] [address] [id number] [address] [place] [address], [place] [address] Jun, [facility] [address] [id number] [address] [place] [address], [place] [address] May, [facility] [address] [id number] [address] [place] [address], [place] [address] Apr, [facility] [address] [id number] [address] [place] [address], [place] [address] 16 Apr, 2011 [facility] [address] [id number] [address] [place] [address], [place] [address] Mar, [facility] [address] [id number] [address] [place] [address], [place] [address] Mar, [facility] [address] [id number] [address] [place] [address], [place] [id number] 19 Feb, 2011 [facility] [address] [id number] [address] [place] [address], [place] [id number] 15 Feb, 2011 [facility] [address] [id number] [address] [place] [address], [place] [address] Feb, [facility] [address] [id number] [address] [place] [address], [place] [id number] 13 Feb, 2011 [facility] [address] [id number] [address] [place] [address], [place] [address] Jan, [facility] [address] [id number] [address] [place] [address], [place] [address] 17 Dec, 2010 [facility] [address] [id number] [address] [place] [address], [place] [address] 08 Feb, 2010 [facility] [address] [id number] [address] [place] [address], [place] [address] Feb, [facility] [address] [id number] [address] [place] [address], [place] [address] Feb, [facility] [address] [id number] [address] [place] [address], [place] [address] Feb, [facility] [address] [id number] [address] [place] [address], [place] [address] Dec, [facility] [address] [id number] [address] [place] [id number] Dec, [facility] [address] [id number] [address] [place] [id number] Oct, [facility] [address] [id number] [address] [place] [id number] Jun, [facility] [address] [id number] [address] [place] [id number] Feb, [facility] [address] [id number] [address] [place] [id number] Feb, [facility] [address] [id number] [address] [place] [id number] Feb, [facility] [address] [facility] [id number] [address] [place] [id number] Dec, IMMUNIZATIONS No Known Immunizations SOCIAL HISTORY [...]
--- OUTSIDE RECORDS SUMMARY | 2019-10-19 12:30 | XMS REPORT ---
Author Author Mary Jane Donohue Organization [facility] Address [address] [place] [address] Care Team Providers Care Locator Name Role Phone JAMI Donohue Unavailable PROBLEMS Type Condition ICD9-CM Code IGX55-VI Code Onset Dates Condition S tatus SNOMED Code Problem Thyroid follicular adenoma D34 Act phylicia 480452042 Problem History of DVT (deep vein thrombosis) Z86.718 Active 223047489 Problem Factor V Leiden D68.51 Active 3070 97961 Problem FDC (current) use of anticoagulants Z79.01 Active 314016858 Problem Hypertriglyceridemia E78.1 Active 441997081 Problem 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 Active 947781916 Problem Pelvic pain R10.2 Active 53985625 Problem Peripheral edema R60.9 Active 271 576781 Problem Moderate episode of recurrent major depressive disorder F33.1 Active 228727898 Problem Presence of IVC filter Z95.828 Active 608996161 Problem Vitamin D deficiency E55.9 Active 25014657 Problem Generalized anxiety disorder F41.1 A ctive 639879430 Problem Excessive daytime sleepiness G47.19 A ctive [id number] Problem Gastroesophageal reflux disease, esophagitis pre sence not specified K21.9 Active 360764009 Problem Thyroid nodule E04.1 Active 65108 5005 Problem Morbid obesity E66.01 Active 25495 6002 ALLERGIES No Information ENCOUNTERS Encounter Location Date Diagnosis [facility] [address] [facility] [id number] [address] [place] [address] Nov, Thyroid nodule E04.1 [facility] [address] [facility] [id number] [address] [place] [address] Nov, Thyroid nodule E04.1 [facility] [address] [facility] [id number] [address] [place] [address] Oct, Syncope, unspecified syncope type R55 and Encounter for weight management Z76.89 [facility] [address] [facility] [id number] [address] [place] [address] Oct, Morbid obesity E66.01 [facility] [address] [id number] [address] [place] [address] Oct, Hypertriglyceridemia E78.1 [facility] [address] [facility] [id number] [address] [place] [address] Oct, [facility] [address] [id number] [address] [place] [address] Oct, Hypertriglyceridemia E78.1 [place] [address] [facility] [id number] [address] [place] [address] Sep, Hypertriglyceridemia E78.1 a nd Vitamin D deficiency E55.9 [place] [address] [facility] [id number] [address] [place] [address] Sep, [facility] [address] [facility] [id number] [address] [place] [address] Sep, Morbid obesity E66.01 ; Mode rate episode of recurrent major depressive disorder F33.1 ; Hypertriglyceridemia E78.1 and Vitamin D deficiency E55.9 [facility] [address] [facility] [id number] [address] [place] [address] Aug, [place] [address] [facility] [id number] [address] [place] [address] July, [facility] [address] [id number] [address] [place] [address] July, [facility] [address] [facility] [id number] [address] [place] [address] Jun, [facility] [address] [facility] [id number] [address] [place] [address] Jun, [facility] [address] [facility] [id number] [address] [place] [address] Jun, Closed compression fracture of L3 lumbar vertebra with routine healing, subsequent encounter S32.030D and Drug-induced constipation K59.03 [facility] [address] [address] Jun, [facility] [address] [place] [id number] [place] [address] Jun, [facility] [address] [address] Apr, [facility] [address] [address] Apr, Morbid obesity E66.01 [facility] [address] [address] Apr, Morbid obesity E66.01 ; Hype rtriglyceridemia E78.1 ; Gastroesophageal reflux disease, esophagitis presence not specified K21.9 and Joint pain M25.50 [facility] [address] [place] [id number] [address] [place] [address] Feb, [facility] [address] [address] Feb, [facility] WALK IN [facility] [address] [address] Jan, Acute bacterial conjunctivit is H10.30 [facility] [address] [address] Dec, [facility] [address] [address] Dec, [facility] [address] [address] Nov, [facility] [address] [address] 07 Nov, 2017 Obstructive sleep apnea G47. 33 ; Morbid obesity E66.01 and Gastroesophageal reflux disease, esophagitis presence not specified K21.9 [facility] [address] [facility] [id number] [address] [place] [id number] 06 Nov, 2017 Encounter for examination of eyes and vision without abnormal findings Z01.00 [facility] [address] [facility] [id number] [address] [place] [address] 31 Oct, 2017 Thyroid nodule E04.1 and Scr eening for breast cancer Z12.31 [place] [address] [place] [id number] [place] [address] 23 Oct, 2017 History of DVT (deep vein th rombosis) Z86.718 ; Thyroid nodule E04.1 and Gastroesophageal reflux disease, esophagitis presence not specified K21.9 [place] [address] [place] [id number] [place] [address] Oct, [place] [address] [place] [id number] [place] [address] Sep, [place] [address] [address] Aug, [place] [address] [place] [id number] [address] [place] [address] Aug, [place] [address] [address] Aug, Acute pain of left shoulder M25.512 and Thyroid nodule E04.1 [place] [address] [place] [id number] [address] [place] [address] July, Superior glenoid labrum lesi on of left shoulder, subsequent encounter S43.432D [place] [address] [place] [id number] [address] [place] [address] Jun, History of DVT (deep vein th rombosis) Z86.718 [facility] [address] [place] [id number] [address] [place] [address] Jun, History of DVT (deep vein th rombosis) Z86.718 [facility] [address] [place] [id number] [address] [place] [address] Jun, Impingement syndrome, should er, left M75.42 [place] [address] [facility] [id number] [address] [place] [address] May, Subacromial bursitis of left shoulder joint M75.52 [place] [address] [facility] [id number] [address] [place] [address] May, [place] [address] [facility] [id number] [address] [place] [address] May, Hypertriglyceridemia E78.1 ; FDC (current) use of anticoagulants Z79.01 and Excessive daytime sleepiness G47.19 [place] [address] [facility] [id number] [address] [place] [address] May, History of DVT (deep vein th rombosis) Z86.718 ; Generalized anxiety disorder F41.1 ; Hypertriglyceridemia E78.1 ; intermission coordinator (current) use of anticoagulants Z79.01 ; Subacromial bursitis of left shoulder joint M75.52 and Excessive daytime sleepiness G47.19 [place] [address] [facility] [id number] [address] [place] [address] May, [place] [address] [facility] [id number] [address] [place] [address] May, intermission coordinator (current) use of a nticoagulants Z79.01 [place] [address] [facility] [id number] [address] [place] [address] Apr, FDC (current) use of a nticoagulants Z79.01 [place] [address] [id number] [address] [place] [address] Apr, intermission coordinator (current) use of a nticoagulants Z79.01 [place] [address] [facility] [id number] [address] [place] [address] Apr, intermission coordinator (current) use of a nticoagulants Z79.01 [place] [address] [id number] [address] [place] [address] Apr, [facility] [address] [id number] [address] [place] [address] Apr, intermission coordinator (current) use of a nticoagulants Z79.01 [facility] [address] [id number] [address] [place] [address] 13 Apr, 2017 intermission coordinator (current) use of a nticoagulants Z79.01 [facility] [address] [id number] [address] [place] [address] Apr, FDC (current) use of a nticoagulants Z79.01 [facility] [address] [id number] [address] [place] [address] Apr, FDC (current) use of a nticoagulants Z79.01 [facility] [address] [id number] [address] [place] [address] Apr, FDC (current) use of a nticoagulants Z79.01 [facility] [address] [id number] [address] [place] [address] Apr, intermission coordinator (current) use of a nticoagulants Z79.01 [facility] [address] [id number] [address] [place] [address] Mar, intermission coordinator (current) use of a nticoagulants Z79.01 [facility] [address] [id number] [address] [place] [address] Mar, [facility] [address] [id number] [address] [place] [address] Mar, FDC (current) use of a nticoagulants Z79.01 [facility] [address] [id number] [address] [place] [address] [id number] Jan, Dental examination Z01.20 [facility] [address] [id number] [address] [place] [id number] Jan, [facility] [address] [id number] [address] [place] [address] Jan, FDC (current) use of a nticoagulants Z79.01 [facility] [address] [id number] [address] [place] [address] Jan, History of DVT (deep vein th rombosis) Z86.718 [facility] [address] [id number] [address] [place] [address] Jan, Generalized anxiety disorder F41.1 and Peripheral edema R60.9 [place] [address] [id number] [address] [place] [address] Nov, History of DVT (deep vein th rombosis) Z86.718 [facility] [address] [id number] [address] [place] [address] Nov, intermission coordinator (current) use of a nticoagulants Z79.01 [facility] WALK IN [facility] [address] [id number] [address] [place] [address] Nov, Acute non-recurrent maxillar y sinusitis J01.00 [facility] [address] [id number] [address] [place] [address] Oct, intermission coordinator (current) use of a nticoagulants Z79.01 [facility] [address] [id number] [address] [place] [address] Oct, Personal history of venous t hrombosis and embolism Z86.718 [facility] [address] [id number] [address] [place] [address] Sep, [facility] [address] [id number] [address] [place] [address] Sep, Personal history of venous t hrombosis and embolism Z86.718 [facility] [address] [facility] [id number] [address] [place] [address] Sep, intermission coordinator (current) use of a nticoagulants Z79.01 [facility] [address] [facility] [id number] [address] [place] [address] Sep, intermission coordinator (current) use of a nticoagulants Z79.01 [facility] [address] [facility] [id number] [address] [place] [address] Sep, Generalized anxiety disorder F41.1 and History of DVT (deep vein thrombosis) Z86.718 [place] [address] [facility] [id number] [address] [place] [address] Aug, History of DVT (deep vein th rombosis) Z86.718 ; Generalized anxiety disorder F41.1 ; FDC (current) use of anticoagulants Z79.01 ; Pelvic pain R10.2 ; Hypertriglyceridemia E78.1 ; Excessive daytime sleepiness G47.19 ; Colon cancer screening Z12.11 ; Screening for breast cancer Z12.39 ; Peripheral edema R60.9 and Gastroesophageal reflux disease, esophagitis presence not specified K21.9 [place] [address] [facility] [id number] [address] [place] [address] Aug, [place] [address] [facility] [id number] [address] [place] [address] July, [place] [address] [facility] [id number] [address] [place] [address] July, History of DVT (deep vein th rombosis) Z86.718 [place] [address] [facility] [id number] [address] [place] [address] Jun, Generalized anxiety disorder F41.1 [place] [address] [facility] [id number] [address] [place] [address] Jun, History of DVT (deep vein th rombosis) Z86.718 [place] [address] [facility] [id number] [address] [place] [address] Jun, History of DVT (deep vein th rombosis) Z86.718 [place] [address] [facility] [id number] [address] [place] [address] Jun, History of DVT (deep vein th rombosis) Z86.718 [facility] [address] [facility] [id number] [address] [place] [address] Jun, History of DVT (deep vein th rombosis) Z86.718 [facility] [address] [place] [id number] [address] [place] [address] May, History of DVT (deep vein th rombosis) Z86.718 [place] [address] [place] [id number] [address] [place] [address] May, FDC (current) use of a nticoagulants Z79.01 [place] [address] [place] [id number] [place] [address] May, intermission coordinator (current) use of a nticoagulants Z79.01 [place] [address] [place] [id number] [address] [place] [address] May, History of DVT (deep vein th rombosis) Z86.718 [facility] [address] [place] [id number] [address] [place] [address] Apr, Bacterial conjunctivitis of left eye H10.9 and H/O motion sickness Z87.898 [place] [address] [place] [id number] [address] [place] [address] Apr, History of DVT (deep vein th rombosis) Z86.718 [place] [address] [place] [id number] [address] [place] [address] Apr, History of DVT (deep vein th rombosis) Z86.718 [place] [address] [place] [id number] [address] [place] [address] Apr, History of DVT (deep vein th rombosis) Z86.718 [facility] [address] [place] [id number] [address] [place] [address] 14 Apr, 2016 intermission coordinator (current) use of a nticoagulants Z79.01 [facility] [address] [id number] [address] [place] [address] Mar, [facility] [address] [id number] [address] [place] [address] Mar, FDC (current) use of a nticoagulants Z79.01 [facility] [address] [id number] [address] [place] [address] Mar, Hypertriglyceridemia E78.1 a nd FDC (current) use of anticoagulants Z79.01 [facility] [address] [id number] [address] [place] [address] Feb, intermission coordinator (current) use of a nticoagulants Z79.01 [place] [address] [id number] [address] [place] [address] Feb, intermission coordinator (current) use of a nticoagulants Z79.01 [facility] [address] [id number] [address] [place] [address] Feb, FDC (current) use of a nticoagulants Z79.01 [facility] [address] [id number] [address] [place] [address] Dec, [place] [address] [id number] [address] [place] [address] Nov, [facility] [address] [id number] [address] [place] [address] 13 Nov, 2015 History of DVT (deep vein th rombosis) Z86.718 ; Tremulousness R25.1 ; Generalized anxiety disorder F41.1 ; Peripheral edema R60.9 and Hypertriglyceridemia E78.1 [place] [address] [id number] [address] [place] [address] Oct, History of DVT (deep vein th rombosis) Z86.718 [place] [address] [id number] [address] [place] [address] Oct, [facility] [address] [facility] [id number] [address] [place] [address] Sep, History of DVT (deep vein th rombosis) Z86.718 [place] [address] [facility] [id number] [address] [place] [address] Sep, intermission coordinator (current) use of a nticoagulants Z79.01 [place] [address] [id number] [address] [place] [address] July, [place] [address] [facility] [id number] [address] [place] [address] July, FDC (current) use of a nticoagulants Z79.01 [place] [address] [facility] [id number] [address] [place] [address] July, FDC (current) use of a nticoagulants Z79.01 [place] [address] [facility] [id number] [address] [place] [address] Jun, intermission coordinator (current) use of a nticoagulants Z79.01 [facility] [place] [address] [facility] [id number] [address] [place] [address] Jun, Coccyx pain M53.3 ; Encounte r for therapeutic drug level monitoring Z51.81 and FDC current use 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.01 [place] [address] [facility] [id number] [address] [place] [address] May, Abnormal mammogram R92.8 [facility] [address] [facility] [id number] [address] [place] [address] May, [facility] WALK IN [place] [address] [facility] [id number] [address] [place] [address] May, Acute vaginitis N76.0 and En counter for other screening for malignant neoplasm of breast Z12.39 [place] [address] [id number] [address] [place] [address] Apr, [facility] [address] [id number] [address] [place] [address] Apr, [facility] [address] [facility] [id number] [address] [place] [address] Apr, Peripheral edema R60.9 [facility] [address] [facility] [id number] [address] [place] [address] Apr, FDC (current) use of a nticoagulants Z79.01 [facility] [address] [id number] [address] [place] [address] Apr, Peripheral edema R60.9 and L jose martin term (current) 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 Z79.01 [facility] [address] [facility] [id number] [address] [place] [address] Apr, FDC (current) use of a nticoagulants Z79.01 [facility] [address] [id number] [address] [place] [address] Apr, [facility] [address] [id number] [address] [place] [address] Apr, FDC (current) use of a nticoagulants Z79.01 [facility] [address] [id number] [address] [place] [address] Apr, Peripheral edema R60.9 [facility] [address] [facility] [id number] [address] [place] [address] Mar, FDC (current) use of a nticoagulants Z79.01 [facility] [address] [id number] [address] [place] [address] Mar, intermission coordinator (current) use of a nticoagulants Z79.01 and Hypertriglyceridemia E78.1 [facility] [address] [facility] [id number] [address] [place] [address] Mar, FDC (current) use of a nticoagulants Z79.01 [facility] [address] [id number] [address] [place] [address] Mar, intermission coordinator (current) use of a nticoagulants Z79.01 [facility] [address] [id number] [address] [place] [address] Mar, [facility] [address] [id number] [address] [place] [address] Mar, [facility]DC (current) use of a nticoagulants Z79.01 ; Hypertriglyceridemia E78.1 ; Personal history of venous thrombosis and embolism Z86.718 and Lump R22.9 [place] [address] [id number] [address] [place] [address] Mar, Personal history of venous t hrombosis and embolism Z86.718 [place] [address] [id number] [address] [place] [address] Mar, Personal history of venous t hrombosis and embolism Z86.718 [place] [address] [id number] [address] [place] [address] Mar, [place] [address] [id number] [address] [place] [address] Dec, Personal history of venous t hrombosis and embolism Z86.718 [place] [address] [id number] [address] [place] [address] Dec, Personal history of venous t hrombosis and embolism V12.51 [place] [address] [id number] [address] [place] [id number] Nov, Personal history of venous t hrombosis and embolism V12.51 [place] [address] [id number] [address] [place] [id number] Nov, Personal history of venous t hrombosis and embolism V12.51 [place] [address] [id number] [address] [place] [phone] Nov, Personal history of venous t hrombosis and embolism V12.51 [facility] [address] [id number] [address] [place] [phone] Nov, Personal history of venous t hrombosis and embolism V12.51 [facility] [address] [id number] [address] [place] [id number] Nov, [facility] [address] [id number] [address] [place] [id number] Oct, Dysuria 788.1 [place] [address] [id number] [address] [place] [phone] Oct, Personal history of venous t hrombosis and embolism V12.51 [place] [address] [id number] [address] [place] [id number] Oct, [place] [address] [id number] [address] [place] [id number] Oct, Personal history of venous t hrombosis and embolism V12.51 [place] [address] [id number] [address] [place] [phone] Sep, Personal history of venous t hrombosis and embolism V12.51 [place] [address] [id number] [address] [place] [phone] Sep, Personal history of venous t hrombosis and embolism V12.51 [facility] [address] [id number] [address] [place] [phone] Aug, Personal history of venous t hrombosis and embolism V12.51 [place] [address] [id number] [address] [place] [address] Aug, Personal history of venous t hrombosis and embolism V12.51 [place] [address] [id number] [address] [place] [address] Aug, Personal history of venous t hrombosis and embolism V12.51 [facility] [address] [id number] [address] [place] [address] July, Generalized anxiety disorder 300.02 ; Abdominal pain, left lower quadrant 789.04 and Personal history of venous thrombosis and embolism V12.51 [facility] [address] [id number] [address] [place] [address] 14 Jun, 2014 [facility] [address] [id number] [address] [place] [address] Jun, [facility] [address] [id number] [address] [place] [address] May, [facility] [address] [id number] [address] [place] [address] May, [facility] [address] [id number] [address] [place] [address] May, [facility] [address] [id number] [address] [place] [address] May, [facility] [address] [id number] [address] [place] [address] May, [facility] [address] [id number] [address] [place] [address] May, [facility] [address] [id number] [address] [place] [address] May, [facility] [address] [id number] [address] [place] [address] May, [facility] [address] [id number] [address] [place] [address] Apr, [facility] [address] [id number] [address] [place] [address] Apr, [facility] [address] [id number] [address] [place] [address] Apr, [facility] [address] [id number] [address] [place] [address] Apr, [facility] [address] [id number] [address] [place] [address], [place] [address] Apr, [facility] [address] [id number] [address] [place] [address], [place] [address] Mar, [facility] [address] [id number] [address] [place] [address], [place] [address] Mar, [facility] [address] [id number] [address] [place] [address], [place] [address] Mar, [facility] [address] [id number] [address] [place] [address], [place] [address] Mar, [facility] [address] [id number] [address] [place] [address], [place] [address] Mar, [facility] [address] [id number] [address] [place] [address], [place] [address] Mar, [facility] [address] [id number] [address] [place] [address], [place] [address] Feb, [facility] [address] [id number] [address] [place] [address], [place] [address] Feb, [facility] [address] [id number] [address] [place] [address], [place] [address] Feb, [facility] [address] [id number] [address] [place] [address], [place] [address] Feb, [facility] [address] [id number] [address] [place] [address], [place] [address] Feb, [facility] [address] [id number] [address] [place] [address], [place] [address] Feb, [facility] [address] [id number] [address] [place] [address], [place] [address] Feb, [facility] [address] [id number] [address] [place] [address], [place] [address] Feb, [facility] [address] [id number] [address] [place] [address], [place] [address] Feb, [facility] [address] [id number] [address] [place] [address], [place] [address] Feb, [facility] [address] [id number] [address] [place] [address], [place] [address] Jan, [facility] [address] [id number] [address] [place] [address], [place] [address] Jan, [facility] [address] [id number] [address] [place] [address], [place] [address] Jan, [facility] [address] [id number] [address] [place] [address], [place] [address] Jan, [facility] [address] [id number] [address] [place] [address], [place] [address] Jan, [facility] [address] [id number] [address] [place] [address], [place] [address] Jan, [facility] [address] [id number] [address] [place] [address], [place] [address] Jan, [facility] [address] [id number] [address] [place] [address], [place] [address] Jan, [facility] [address] [id number] [address] [place] [address], [place] [address] Jan, [facility] [address] [id number] [address] [place] [address], [place] [address] Jan, [facility] [address] [id number] [address] [place] [address], [place] [address] Dec, [facility] [address] [id number] [address] [place] [address], [place] [address] Dec, [facility] [address] [id number] [address] [place] [address], [place] [address] Dec, [facility] [address] [id number] [address] [place] [address], [place] [address] Dec, [facility] [address] [id number] [address] [place] [address], [place] [address] Dec, [facility] [address] [id number] [address] [place] [address], [place] [address] Dec, [facility] [address] [id number] [address] [place] [address], [place] [address] Dec, [facility] [address] [id number] [address] [place] [address], [place] [address] Dec, [facility] [address] [id number] [address] [place] [address], [place] [address] Dec, [facility] [address] [id number] [address] [place] [address], [place] [address] Dec, [facility] [address] [id number] [address] [place] [address], [place] [address] Dec, [facility] [address] [id number] [address] [place] [address], [place] [address] Dec, [facility] [address] [id number] [address] [place] [address], [place] [address] Dec, [facility] [address] [id number] [address] [place] [address] Dec, [facility] [address] [id number] [address] [place] [address] Dec, [facility] [address] [id number] [address] [place] [address] Nov, [facility] [address] [id number] [address] [place] [address], [place] [address] 30 Nov, 2013 [facility] [address] [id number] [address] [place] [address], [place] [address] Nov, [facility] [address] [id number] [address] [place] [address], [place] [address] Nov, [facility] [address] [id number] [facility] [place] [address] 24 Sep, 2013 [facility] [address] [id number] [address] [place] [address], [place] [address] 24 Sep, 2013 [facility] [address] [id number] [facility] [address] 23 Sep, 2013 [facility] [address] [id number] [address] [place] [address], [place] [address] 23 Sep, 2013 [facility] [address] [id number] [address] [place] [address], [place] [address] 18 Sep, 2013 [facility] [address] [id number] [address] [place] [address], [place] [address] 18 Sep, 2013 [facility] [address] [id number] [address] [place] [address], [place] [address] 17 Nov, 2013 [facility] [address] [id number] [address] [place] [address], [place] [address] 17 Nov, 2013 [facility] [address] [id number] [address] [place] [address], [place] [address] 11 Nov, 2013 [facility] [address] [id number] [address] [place] [address], [place] [address] 11 Nov, 2013 [facility] [address] [id number] [address] [place] [address], [place] [address] 10 Nov, 2013 [facility] [address] [id number] [address] [place] [address], [place] [address] 10 Nov, 2013 [facility] [address] [id number] [address] [place] [address], [place] [address] 08 Nov, 2013 [facility] [address] [id number] [address] [place] [address], [place] [address] 08 Nov, 2013 [facility] [address] [id number] [address] [place] [address], [place] [address] 22 Sep, 2013 [facility] [address] [id number] [address] [place] [address], [place] [address] Sep, [facility] [address] [id number] [address] [place] [address], [place] [address] Sep, [facility] [address] [id number] [address] [place] [address], [place] [address] Sep, [facility] [address] [id number] [address] [place] [address], [place] [address] Sep, [facility] [address] [id number] [address] [place] [address], [place] [address] Sep, [facility] [address] [id number] [address] [place] [address], [place] [address] Aug, [facility] [address] [id number] [address] [place] [address], [place] [address] Aug, [facility] [address] [id number] [address] [place] [address], [place] [address] Aug, [facility] [address] [id number] [address] [place] [address], [place] [address] Aug, [facility] [address] [id number] [address] [place] [address], [place] [address] Aug, [facility] [address] [id number] [address] [place] [address], [place] [address] Aug, [facility] [address] [id number] [address] [place] [address], [place] [address] Aug, [facility] [address] [id number] [address] [place] [address], [place] [address] Aug, [facility] [address] [id number] [address] [place] [address], [place] [address] Aug, [facility] [address] [id number] [address] [place] [address], [place] [address] Aug, [facility] [address] [id number] [address] [place] [address], [place] [address] Aug, [facility] [address] [id number] [address] [place] [address], [place] [address] July, [facility] [address] [id number] [address] [place] [address], [place] [address] July, [facility] [address] [id number] [address] [place] [address], [place] [address] Jun, [facility] [address] [id number] [address] [place] [address], [place] [address] Jun, [facility] [address] [id number] [address] [place] [address], [place] [address] Jun, [facility] [address] [id number] [address] [place] [address], [place] [address] Jun, [facility] [address] [id number] [address] [place] [address], [place] [address] Jun, [facility] [address] [id number] [address] [place] [address], [place] [address] Jun, [facility] [address] [id number] [address] [place] [address], [place] [address] Jun, [facility] [address] [id number] [address] [place] [address], [place] [address] Jun, [facility] [address] [id number] [address] [place] [address], [place] [address] Jun, [facility] [address] [id number] [address] [place] [address], [place] [address] Jun, [facility] [address] [id number] [address] [place] [address], [place] [address] Jun, [facility] [address] [id number] [address] [place] [address], [place] [address] Jun, [facility] [address] [id number] [address] [place] [address], [place] [address] May, [facility] [address] [id number] [address] [place] [address], [place] [address] May, [facility] [address] [id number] [facility] [address] 20 May, 2013 [facility] [address] [id number] [facility] [address] May, [facility] [address] [id number] [facility] [address] May, [facility] [address] [id number] [address] [place] [address], [place] [address] May, [facility] [address] [id number] [address] [place] [address], [place] [address] May, [facility] [address] [id number] [address] [place] [address], [place] [address] May, [facility] [address] [id number] [address] [place] [address], [place] [address] May, [facility] [address] [id number] [address] [place] [address], [place] [address] May, [facility] [address] [id number] [address] [place] [address], [place] [address] May, [facility] [address] [id number] [address] [place] [address], [place] [address] May, [facility] [address] [id number] [address] [place] [address], [place] [address] Apr, [facility] [address] [id number] [address] [place] [address], [place] [address] Apr, [facility] [address] [id number] [address] [place] [address], [place] [address] Apr, [facility] [address] [id number] [address] [place] [address], [place] [address] Apr, [facility] [address] [id number] [address] [place] [address], [place] [address] Apr, [facility] [address] [id number] [address] [place] [address], [place] [address] Apr, [facility] [address] [id number] [address] [place] [address], [place] [address] Apr, [facility] [address] [id number] [address] [place] [address], [place] [address] Apr, [facility] [address] [id number] [address] [place] [address], [place] [address] Apr, [facility] [address] [id number] [address] [place] [address], [place] [address] Apr, [facility] [address] [id number] [address] [place] [address], [place] [address] Apr, [facility] [address] [id number] [address] [place] [address], [place] [address] Apr, [facility] [address] [id number] [address] [place] [address], [place] [address] Apr, [facility] [address] [id number] [address] [place] [address], [place] [address] Apr, [facility] [address] [id number] [address] [place] [address], [place] [address] Apr, [facility] [address] [id number] [address] [place] [address], [place] [address] Apr, [facility] [address] [id number] [address] [place] [address], [place] [address] Apr, [facility] [address] [id number] [address] [place] [address], [place] [address] Jan, [facility] [address] [id number] [address] [place] [address], [place] [address] Jan, [facility] [address] [id number] [address] [place] [address], [place] [address] Jan, [facility] [address] [id number] [address] [place] [address], [place] [address] Jan, [facility] [address] [id number] [address] [place] [address], [place] [address] 07 Jan, 2013 [facility] [address] [id number] [address] [place] [address], [place] [address] Jan, [facility] [address] [id number] [address] [place] [address], [place] [address] Jan, [facility] [address] [id number] [address] [place] [address], [place] [address] Dec, [facility] [address] [id number] [address] [place] [address], [place] [address] Dec, [facility] [address] [id number] [address] [place] [address], [place] [address] Dec, [facility] [address] [id number] [address] [place] [address], [place] [address] Nov, [facility] [address] [id number] [address] [place] [address], [place] [address] Nov, [facility] [address] [id number] [address] [place] [address], [place] [address] 05 Nov, 2012 [facility] [address] [id number] [address] [place] [address], [place] [address] Nov, [facility] [address] [id number] [address] [place] [address], [place] [address] Oct, [facility] [address] [id number] [address] [place] [address] Oct, [facility] [address] [id number] [address] [place] [address], [place] [address] Oct, [facility] [address] [id number] [address] [place] [address], [place] [address] Oct, [facility] [address] [id number] [address] [place] [address], [place] [address] Oct, [facility] [address] [id number] [address] [place] [address] Sep, [facility] [address] [id number] [address] [place] [address], [place] [address] Sep, [facility] [address] [id number] [address] [place] [address], [place] [address] Sep, [facility] [address] [id number] [address] [place] [address], [place] [address] Sep, [facility] [address] [id number] [address] [place] [address], [place] [address] Sep, [facility] [address] [id number] [address] [place] [address], [place] [address] Sep, [facility] [address] [id number] [address] [place] [address], [place] [address] Sep, [facility] [address] [id number] [address] [place] [address], [place] [address] Aug, [facility] [address] [id number] [address] [place] [address], [place] [id number] Aug, [facility] [address] [id number] [address] [place] [address], [place] [address] July, [facility] [address] [id number] [address] [place] [address], [place] [address] Jun, [facility] [address] [id number] [address] [place] [address], [place] [id number] Jun, [facility] [address] [id number] [address] [place] [address], [place] [id number] Jun, [facility] [address] [id number] [address] [place] [address], [place] [id number] Apr, [facility] [address] [id number] [address] [place] [address], [place] [id number] Apr, [facility] [address] [id number] [address] [place] [address], [place] [id number] Apr, [facility] [address] [id number] [address] [place] [address], [place] [id number] Mar, [facility] [address] [id number] [address] [place] [address], [place] [id number] 24 Mar, 2012 [facility] [address] [id number] [address] [place] [address], [place] [id number] 2012 [facility] [address] [id number] [address] [place] [address], [place] [id number] 09 Mar, 2012 [facility] [address] [id number] [address] [place] [address], [place] [id number] 07 Mar, 2012 [facility] [address] [id number] [address] [place] [address], [place] [id number] 14 Feb, 2012 [facility] [address] [id number] [address] [place] [address], [place] [id number] 14 Feb, 2012 [facility] [address] [id number] [address] [place] [address], [place] [id number] 13 Jan, 2012 [facility] [address] [id number] [address] [place] [address], [place] [address] Jan, [facility] [address] [id number] [address] [place] [address], [place] [id number] Jan, [facility] [address] [id number] [address] [place] [address], [place] [id number] 13 Jan, 2012 [facility] [address] [id number] [address] [place] [address], [place] [id number] Jan, [facility] [address] [id number] [address] [place] [address], [place] [id number] 07 Jan, 2012 [facility] [address] [id number] [address] [place] [address], [place] [id number] 06 Jan, 2012 [facility] [address] [id number] [address] [place] [address], [place] [id number] 31 Dec, 2011 [facility] [address] [id number] [address] [place] [address], [place] [id number] Dec, [facility] [address] [id number] [address] [place] [address], [place] [id number] Dec, [facility] [address] [id number] [address] [place] [address], [place] [id number] Dec, [facility] [address] [id number] [address] [place] [address], [place] [id number] Dec, [facility] [address] [id number] [address] [place] [address], [place] [id number] Dec, [facility] [address] [id number] [address] [place] [address], [place] [id number] Dec, [facility] [address] [id number] [address] [place] [address], [place] [id number] Dec, [facility] [address] [id number] [address] [place] [address], [place] [id number] Dec, [facility] [address] [id number] [address] [place] [address], [place] [id number] Dec, [facility] [address] [id number] [address] [place] [address], [place] [id number] Oct, [facility] [address] [id number] [address] [place] [id number] Oct, [facility] [address] [id number] [address] [place] [id number] Aug, [facility] [address] [id number] [address] [place] [id number] Aug, [facility] [address] [id number] [address] [place] [address], [place] [id number] July, [facility] [address] [id number] [address] [place] [id number] Jun, [facility] [address] [id number] [address] [place] [id number] Jun, [facility] [address] [id number] [address] [place] [address], [place] [id number] May, [facility] [address] [id number] [address] [place] [address], [place] [id number] 22 Apr, 2011 [facility] [address] [id number] [address] [place] [address], [place] [id number] 16 Apr, 2011 [facility] [address] [id number] [address] [place] [address], [place] [id number] 19 Mar, 2011 [facility] [address] [id number] [address] [place] [address], [place] [id number] 16 Mar, 2011 [facility] [address] [id number] [address] [place] [address], [place] [id number] 19 Feb, 2011 [facility] [address] [id number] [address] [place] [address], [place] [id number] 15 Feb, 2011 [facility] [address] [id number] [address] [place] [address], [place] [id number] Feb, [facility] [address] [id number] [address] [place] [address], [place] [id number] 13 Feb, 2011 [facility] [address] [id number] [address] [place] [address], [place] [id number] Jan, [facility] [address] [id number] [address] [place] [address], [place] [id number] 17 Dec, 2010 [facility] [address] [id number] [address] [place] [address], [place] [id number] 08 Feb, 2010 [facility] [address] [id number] [address] [place] [address], [place] [id number] 02 Feb, 2010 [facility] [address] [id number] [address] [place] [address], [place] [id number] Feb, [facility] [address] [id number] [address] [place] [address], [place] [id number] Feb, [facility] [address] [id number] [address] [place] [address], [place] [id number] 15 Dec, 2009 [facility] [address] [id number] [address] [place] [id number] Dec, [facility] [address] [id number] [address] [place] [id number] Oct, [facility] [address] [id number] [address] [place] [id number] Jun, [facility] [address] [id number] [address] [place] [id number] Feb, [facility] [address] [id number] [address] [place] [id number] Feb, [facility] [address] [id number] [address] [place] [id number] Feb, [facility] [address] [facility] [id number] [address] [place] [id number] Dec, IMMUNIZATIONS No Known Immunizations SOCIAL HISTORY [...]
--- OUTSIDE RECORDS SUMMARY | 2019-10-19 12:30 | XMS REPORT ---
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 Active 748066350 Problem Hypertriglyceridemia E78.1 Active 110545925 Problem 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 Active 594937161 Problem Pelvic pain R10.2 Active 83377451 Problem Peripheral edema R60.9 Active 271 179386 Problem Moderate episode of recurrent major depressive disorder F33.1 Active 868002562 Problem Presence of IVC filter Z95.828 Active 973540738 Problem Vitamin D deficiency E55.9 Active 60686786 Problem Generalized anxiety disorder F41.1 A ctive 036933591 Problem Excessive daytime sleepiness G47.19 A ctive 968279722490 Problem Gastroesophageal reflux disease, esophagitis pre sence not specified K21.9 Active 992809450 Problem Thyroid nodule E04.1 Active 18632 5005 Problem Morbid obesity E66.01 Active 31487 6002 ALLERGIES No Information ENCOUNTERS Encounter Location Date Diagnosis [facility] [address] [facility] [id number] [address] [place] [phone] Nov, Thyroid nodule E04.1 [facility] [address] [facility] [id number] [address] [place] [phone] Oct, Syncope, unspecified syncope type R55 [facility] [address] [facility] [id number] [address] [place] [address] Oct, Morbid obesity E66.01 [facility] [address] [id number] [address] [place] [phone] Oct, Hypertriglyceridemia E78.1 [facility] [address] [id number] [address] [place] [phone] Oct, [facility] [address] [facility] [id number] [address] [place] [phone] Oct, Hypertriglyceridemia E78.1 [facility] [address] [id number] [address] [place] [phone] Sep, Hypertriglyceridemia E78.1 a nd Vitamin D deficiency E55.9 [facility] [address] [id number] [address] [place] [phone] Sep, [facility] [address] [facility] [id number] [address] [place] [phone] Sep, Morbid obesity E66.01 ; Mode rate episode of recurrent major depressive disorder F33.1 ; Hypertriglyceridemia E78.1 and Vitamin D deficiency E55.9 [facility] [address] [id number] [address] [place] [phone] Aug, [facility] [address] [facility] [id number] [address] [place] [phone] July, [facility] [address] [facility] [id number] [address] [place] [phone] July, [facility] [address] [facility] [id number] [address] [place] [phone] Jun, [facility] [address] [id number] [address] [place] [phone] Jun, [facility] [address] [facility] [id number] [address] [place] [address] Jun, Closed compression fracture of L3 lumbar vertebra with routine healing, subsequent encounter S32.030D and Drug-induced constipation K59.03 [facility] [address] [id number] [address] [place] [phone] Jun, [facility] [address] [facility] [id number] [address] [place] [phone] Jun, [facility] [address] [facility] [id number] [place] [phone] Apr, [facility] [address] [facility] [id number] [place] [address] Apr, Morbid obesity E66.01 [facility] [address] [facility] [id number] [address] [place] [phone] 12 Apr, 2018 Morbid obesity E66.01 ; Hype rtriglyceridemia E78.1 ; Gastroesophageal reflux disease, esophagitis presence not specified K21.9 and Joint pain M25.50 [facility] [address] [place] [id number] [address] [place] [phone] Feb, [facility] [address] [address] Feb, [facility] [address] [facility] [id number] [address] [place] [address] Jan, Acute bacterial conjunctivit is H10.30 [facility] [address] [place] [id number] [address] [place] [phone] 08 Dec, 2017 [facility] [address] [place] [id number] [address] [place] [phone] 04 Dec, 2017 [facility] [id number] [place] [phone] 17 Nov, 2017 [facility] [address] [facility] [id number] [address] [place] [phone] 07 Nov, 2017 Obstructive sleep apnea G47. 33 ; Morbid obesity E66.01 and Gastroesophageal reflux disease, esophagitis presence not specified K21.9 [facility] [address] [id number] [address] [place] [id number] 06 Nov, 2017 Encounter for examination of eyes and vision without abnormal findings Z01.00 [facility] [address] [place] [id number] [address] [place] [phone] Oct, Thyroid nodule E04.1 and Scr eening for breast cancer Z12.31 [place] [address] [place] [id number] [place] [address] Oct, History of DVT (deep vein th rombosis) Z86.718 ; Thyroid nodule E04.1 and Gastroesophageal reflux disease, esophagitis presence not specified K21.9 [place] [address] [address] Oct, [place] [address] [address] Sep, [place] [address] [address] Aug, [place] [address] [address] Aug, [place] [address] [address] Aug, Acute pain of left shoulder M25.512 and Thyroid nodule E04.1 [place] [address] [address] July, Superior glenoid labrum lesi on of left shoulder, subsequent encounter S43.432D [place] [address] [address] Jun, History of DVT (deep vein th rombosis) Z86.718 [place] [address] [place] [id number] [address] [place] [phone] Jun, History of DVT (deep vein th rombosis) Z86.718 [place] [address] [place] [id number] [place] [address] Jun, Impingement syndrome, should er, left M75.42 [place] [address] [address] May, Subacromial bursitis of left shoulder joint M75.52 [place] [address] [facility] [id number] [address] [place] [address] May, [facility] [address] [facility] [id number] [address] [place] [phone] May, Hypertriglyceridemia E78.1 ; 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 and Excessive daytime sleepiness G47.19 [place] [address] [facility] [id number] [address] [place] [phone] May, History of DVT (deep vein th rombosis) Z86.718 ; Generalized anxiety disorder F41.1 ; Hypertriglyceridemia E78.1 ; 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 ; Subacromial bursitis of left shoulder joint M75.52 and Excessive daytime sleepiness G47.19 [place] [address] [facility] [id number] [address] [place] [address] May, [place] [address] [facility] [id number] [address] [place] [address] May, refractory 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 nticoagulants Z79.01 [place] [address] [facility] [id number] [address] [place] [address] Apr, penitentiary (current) use of a nticoagulants Z79.01 [place] [address] [facility] [id number] [address] [place] [phone] Apr, refractory 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 nticoagulants Z79.01 [place] [address] [id number] [address] [place] [address] Apr, refractory 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 nticoagulants Z79.01 [place] [address] [facility] [id number] [address] [place] [address] Apr, [place] [address] [facility] [id number] [address] [place] [address] Apr, penitentiary (current) use of a nticoagulants Z79.01 [facility] [address] [id number] [address] [place] [phone] 13 Apr, 2017 refractory 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 nticoagulants Z79.01 [facility] [address] [id number] [address] [place] [phone] Apr, refractory 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 nticoagulants Z79.01 [facility] [address] [id number] [address] [place] [address] Apr, penitentiary (current) use of a nticoagulants Z79.01 [facility] [address] [id number] [address] [place] [phone] Apr, refractory 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 nticoagulants Z79.01 [facility] [address] [id number] [address] [place] [phone] Apr, penitentiary (current) use of a nticoagulants Z79.01 [facility] [address] [id number] [address] [place] [phone] Mar, penitentiary (current) use of a nticoagulants Z79.01 [facility] [address] [id number] [address] [place] [phone] Mar, [facility] [address] [id number] [address] [place] [phone] Mar, penitentiary (current) use of a nticoagulants Z79.01 [facility] [address] [id number] [address] [place] [id number] Jan, Dental examination Z01.20 [facility] [address] [id number] [address] [place] [id number] Jan, [facility] [address] [id number] [address] [place] [address] Jan, penitentiary (current) use of a nticoagulants Z79.01 [facility] [address] [id number] [address] [place] [phone] 17 Jan, 2017 History of DVT (deep vein th rombosis) Z86.718 [facility] [address] [id number] [address] [place] [phone] Jan, Generalized anxiety disorder F41.1 and Peripheral edema R60.9 [facility] [address] [id number] [address] [place] [phone] Nov, History of DVT (deep vein th rombosis) Z86.718 [place] [address] [id number] [address] [place] [address] Nov, refractory 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 nticoagulants Z79.01 [facility] [address] [id number] [address] [place] [phone] Nov, Acute non-recurrent maxillar y sinusitis J01.00 [facility] [address] [id number] [address] [place] [phone] Oct, penitentiary (current) use of a nticoagulants Z79.01 [place] [address] [id number] [address] [place] [phone] Oct, Personal history of venous t hrombosis and embolism Z86.718 [place] [address] [id number] [address] [place] [address] Sep, [facility] [address] [id number] [address] [place] [phone] Sep, Personal history of venous t hrombosis and embolism Z86.718 [facility] [address] [id number] [address] [place] [address] Sep, penitentiary (current) use of a nticoagulants Z79.01 [facility] [address] [id number] [address] [place] [phone] 11 Walter, 2017 refractory 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 nticoagulants Z79.01 [place] [address] [facility] [id number] [address] [place] [address] Sep, Generalized anxiety disorder F41.1 and History of DVT (deep vein thrombosis) Z86.718 [place] [address] [facility] [id number] [address] [place] [address] Aug, History of DVT (deep vein th rombosis) Z86.718 ; Generalized anxiety disorder F41.1 ; 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 ; Pelvic pain R10.2 ; Hypertriglyceridemia E78.1 ; Excessive daytime sleepiness G47.19 ; Colon cancer screening Z12.11 ; Screening for breast cancer Z12.39 ; Peripheral edema R60.9 and Gastroesophageal reflux disease, esophagitis presence not specified K21.9 [place] [address] [place] [id number] [address] [place] [address] Aug, [place] [address] [facility] [id number] [address] [place] [address] July, [place] [address] [place] [id number] [address] [place] [address] July, History of DVT (deep vein th rombosis) Z86.718 [place] [address] [facility] [id number] [address] [place] [address] Jun, Generalized anxiety disorder F41.1 [place] [address] [facility] [id number] [address] [place] [phone] Jun, History of DVT (deep vein th rombosis) Z86.718 [place] [address] [facility] [id number] [address] [place] [address] Jun, History of DVT (deep vein th rombosis) Z86.718 [place] [address] [facility] [id number] [address] [place] [address] Jun, History of DVT (deep vein th rombosis) Z86.718 [place] [address] [place] [id number] [address] [place] [address] Jun, History of DVT (deep vein th rombosis) Z86.718 [facility] [address] [facility] [id number] [address] [place] [address] May, History of DVT (deep vein th rombosis) Z86.718 [facility] [address] [facility] [id number] [address] [place] [address] May, refractory 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 nticoagulants Z79.01 [place] [address] [facility] [id number] [address] [place] [address] May, refractory 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 nticoagulants Z79.01 [place] [address] [facility] [id number] [address] [place] [address] May, History of DVT (deep vein th rombosis) Z86.718 [facility] [address] [facility] [id number] [address] [place] [address] Apr, Bacterial conjunctivitis of left eye H10.9 and H/O motion sickness Z87.898 [place] [address] [facility] [id number] [address] [place] [phone] 24 Apr, 2016 History of DVT (deep vein th rombosis) Z86.718 [place] [address] [facility] [id number] [address] [place] [address] Apr, History of DVT (deep vein th rombosis) Z86.718 [facility] [address] [facility] [id number] [address] [place] [address] 15 Apr, 2016 History of DVT (deep vein th rombosis) Z86.718 [facility] [address] [place] [id number] [address] [place] [phone] 14 Apr, 2016 refractory 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 nticoagulants Z79.01 [place] [address] [place] [id number] [address] [place] [address] Mar, [facility] [address] [id number] [address] [place] [address] Mar, refractory 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 nticoagulants Z79.01 [facility] [address] [id number] [address] [place] [phone] Mar, Hypertriglyceridemia E78.1 a nd 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 [facility] [address] [id number] [address] [place] [address] Feb, penitentiary (current) use of a nticoagulants Z79.01 [facility] [address] [id number] [address] [place] [phone] Feb, refractory 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 nticoagulants Z79.01 [facility] [address] [id number] [address] [place] [phone] Feb, penitentiary (current) use of a nticoagulants Z79.01 [facility] [address] [id number] [address] [place] [phone] Dec, [facility] [address] [id number] [address] [place] [address] Nov, [facility] [address] [id number] [address] [place] [phone] Nov, History of DVT (deep vein th rombosis) Z86.718 ; Tremulousness R25.1 ; Generalized anxiety disorder F41.1 ; Peripheral edema R60.9 and Hypertriglyceridemia E78.1 [facility] [address] [id number] [address] [place] [phone] Oct, History of DVT (deep vein th rombosis) Z86.718 [facility] [address] [id number] [address] [place] [phone] Oct, [facility] [address] [id number] [address] [place] [phone] Sep, History of DVT (deep vein th rombosis) Z86.718 [facility] [address] [id number] [address] [place] [address] Sep, penitentiary (current) use of a nticoagulants Z79.01 [facility] [address] [id number] [address] [place] [address] July, [place] [address] [id number] [address] [place] [phone] July, penitentiary (current) use of a nticoagulants Z79.01 [place] [address] [id number] [address] [place] [phone] July, refractory 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 nticoagulants Z79.01 [place] [address] [id number] [address] [place] [address] Jun, penitentiary (current) use of a nticoagulants Z79.01 [facility] [address] [id number] [address] [place] [phone] Jun, Coccyx pain M53.3 ; Encounte r for therapeutic drug level monitoring Z51.81 and refractory 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 current use 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.01 [place] [address] [id number] [address] [place] [phone] May, Abnormal mammogram R92.8 [facility] [address] [id number] [address] [place] [phone] May, [facility] [id number] [address] [place] [phone] May, Acute vaginitis N76.0 and En counter for other screening for malignant neoplasm of breast Z12.39 [place] [address] [id number] [address] [place] [phone] Apr, [place] [address] [id number] [address] [place] [phone] Apr, [facility] [address] [id number] [address] [place] [phone] Apr, Peripheral edema R60.9 [facility] [address] [facility] [id number] [address] [place] [phone] Apr, penitentiary (current) use of a nticoagulants Z79.01 [facility] [address] [id number] [address] [place] [phone] Apr, Peripheral edema R60.9 and L jose martin term (current) 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 Z79.01 [place] [address] [id number] [address] [place] [phone] Apr, refractory 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 nticoagulants Z79.01 [place] [address] [id number] [address] [place] [phone] Apr, [facility] [address] [facility] [id number] [address] [place] [phone] Apr, penitentiary (current) use of a nticoagulants Z79.01 [place] [address] [id number] [address] [place] [phone] Apr, Peripheral edema R60.9 [place] [address] [facility] [id number] [address] [place] [phone] Mar, refractory 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 nticoagulants Z79.01 [facility] [address] [id number] [address] [place] [phone] Mar, refractory 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 nticoagulants Z79.01 and Hypertriglyceridemia E78.1 [place] [address] [facility] [id number] [address] [place] [phone] Mar, penitentiary (current) use of a nticoagulants Z79.01 [place] [address] [facility] [id number] [address] [place] [id number] Mar, refractory 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 nticoagulants Z79.01 [place] [address] [id number] [address] [place] [phone] Mar, [place] [address] [id number] [address] [place] [id number] Mar, penitentiary (current) use of a nticoagulants Z79.01 ; Hypertriglyceridemia E78.1 ; Personal history of venous thrombosis and embolism Z86.718 and Lump R22.9 [place] [address] [id number] [address] [place] [id number] Mar, Personal history of venous t hrombosis and embolism Z86.718 [place] [address] [id number] [address] [place] [phone] Mar, Personal history of venous t hrombosis and embolism Z86.718 [place] [address] [id number] [address] [place] [phone] Mar, [place] [address] [id number] [address] [place] [phone] Dec, Personal history of venous t hrombosis and embolism Z86.718 [place] [address] [id number] [address] [place] [phone] Dec, Personal history of venous t hrombosis and embolism V12.51 [place] [address] [id number] [address] [place] [id number] 28 Nov, 2014 Personal history of venous t hrombosis and embolism V12.51 [place] [address] [id number] [address] [place] [phone] 25 Nov, 2014 Personal history of venous t hrombosis and embolism V12.51 [place] [address] [id number] [address] [place] [phone] 17 Nov, 2014 Personal history of venous t hrombosis and embolism V12.51 [place] [address] [id number] [address] [place] [phone] Nov, Personal history of venous t hrombosis and embolism V12.51 [facility] [address] [id number] [address] [place] [id number] Nov, [facility] [address] [id number] [address] [place] [id number] Oct, Dysuria 788.1 [facility] [address] [id number] [address] [place] [id number] Oct, Personal history of venous t hrombosis and embolism V12.51 [facility] [address] [id number] [address] [place] [id number] Oct, [facility] [address] [id number] [address] [place] [id number] Oct, Personal history of venous t hrombosis and embolism V12.51 [facility] [address] [id number] [address] [place] [id number] Sep, Personal history of venous t hrombosis and embolism V12.51 [facility] [address] [id number] [address] [place] [phone] Sep, Personal history of venous t hrombosis and embolism V12.51 [facility] [address] [id number] [address] [place] [phone] Aug, Personal history of venous t hrombosis and embolism V12.51 [facility] [address] [id number] [address] [place] [id number] Aug, Personal history of venous t hrombosis and embolism V12.51 [facility] [address] [id number] [address] [place] [id number] Aug, Personal history of venous t hrombosis and embolism V12.51 [facility] [address] [id number] [address] [place] [id number] July, Generalized anxiety disorder 300.02 ; Abdominal pain, left lower quadrant 789.04 and Personal history of venous thrombosis and embolism V12.51 [facility] [address] [id number] [address] [place] [address], [place] [address] 14 Jun, 2014 [facility] [address] [id number] [address] [place] [address], [place] [address] Jun, [facility] [address] [id number] [address] [place] [address], [place] [address] May, [facility] [address] [id number] [address] [place] [address], [place] [address] May, [facility] [address] [id number] [address] [place] [address], [place] [address] May, [facility] [address] [id number] [address] [place] [address], [place] [address] May, [facility] [address] [id number] [address] [place] [address], [place] [address] May, [facility] [address] [id number] [address] [place] [address], [place] [address] May, [facility] [address] [id number] [address] [place] [address], [place] [address] May, [facility] [address] [id number] [address] [place] [address], [place] [address] May, [facility] [address] [id number] [address] [place] [address], [place] [address] Apr, [facility] [address] [id number] [address] [place] [address], [place] [address] Apr, [facility] [address] [id number] [address] [place] [address], [place] [address] Apr, [facility] [address] [id number] [address] [place] [address], [place] [address] Apr, [facility] [address] [id number] [address] [place] [id number] Apr, [facility] [address] [id number] [address] [place] [address], [place] [address] Mar, [facility] [address] [id number] [address] [place] [address], [place] [address] Mar, [facility] [address] [id number] [address] [place] [address], [place] [address] Mar, [facility] [address] [id number] [address] [place] [address], [place] [address] Mar, [facility] [address] [id number] [address] [place] [address], [place] [address] Mar, [facility] [address] [id number] [address] [place] [address], [place] [address] Mar, [facility] [address] [id number] [address] [place] [address], [place] [address] Feb, [facility] [address] [id number] [address] [place] [address], [place] [address] Feb, [facility] [address] [id number] [address] [place] [address], [place] [address] Feb, [facility] [address] [id number] [address] [place] [address], [place] [address] Feb, [facility] [address] [id number] [address] [place] [address], [place] [address] Feb, [facility] [address] [id number] [address] [place] [address], [place] [address] Feb, [facility] [address] [id number] [address] [place] [address], [place] [address] Feb, [facility] [address] [id number] [address] [place] [address], [place] [address] Feb, [facility] [address] [id number] [address] [place] [address], [place] [address] Feb, [facility] [address] [id number] [address] [place] [address], [place] [address] Feb, [facility] [address] [id number] [address] [place] [address], [place] [address] Jan, [facility] [address] [id number] [address] [place] [address], [place] [address] Jan, [facility] [address] [id number] [address] [place] [address], [place] [address] Jan, [facility] [address] [id number] [address] [place] [address], [place] [address] Jan, [facility] [address] [id number] [address] [place] [address], [place] [address] Jan, [facility] [address] [id number] [address] [place] [address], [place] [address] Jan, [facility] [address] [id number] [address] [place] [address], [place] [address] Jan, [facility] [address] [id number] [address] [place] [address], [place] [address] Jan, [facility] [address] [id number] [address] [place] [address], [place] [address] Jan, [facility] [address] [id number] [address] [place] [address], [place] [address] Jan, [facility] [address] [id number] [address] [place] [address], [place] [address] Dec, [facility] [address] [id number] [address] [place] [address], [place] [address] Dec, [facility] [address] [id number] [address] [place] [address], [place] [address] Dec, [facility] [address] [id number] [address] [place] [address], [place] [address] Dec, [facility] [address] [id number] [address] [place] [address], [place] [address] Dec, [facility] [address] [id number] [address] [place] [address], [place] [address] Dec, [facility] [address] [id number] [address] [place] [address], [place] [address] Dec, [facility] [address] [id number] [address] [place] [address], [place] [address] Dec, [facility] [address] [id number] [address] [place] [address], [place] [address] Dec, [facility] [address] [id number] [address] [place] [address], [place] [address] Dec, [facility] [address] [id number] [address] [place] [address], [place] [address] Dec, [facility] [address] [id number] [address] [place] [address], [place] [address] Dec, [facility] [address] [id number] [address] [place] [address], [place] [address] Dec, [facility] [address] [id number] [address] [place] [address], [place] [address] Dec, [facility] [address] [id number] [address] [place] [address], [place] [address] Dec, [facility] [address] [id number] [address] [place] [address], [place] [address] 30 Nov, 2013 [facility] [address] [id number] [address] [place] [address], [place] [address] 30 Nov, 2013 [facility] [address] [id number] [address] [place] [address], [place] [address] Nov, 2013 [facility] [address] [id number] [address] [place] [address], [place] [address] 26 Nov, 2013 [facility] [address] [id number] [address] [place] [address], [place] [address] 24 Nov, 2013 [facility] [address] [id number] [address] [place] [address], [place] [address] 24 Nov, 2013 [facility] [address] [id number] [facility] [place] [address] 23 Nov, 2013 [facility] [address] [id number] [address] [place] [address], [place] [address] 23 Nov, 2013 [facility] [address] [id number] [address] [place] [address], [place] [address] 18 Nov, 2013 [facility] [address] [id number] [address] [place] [address], [place] [address] 18 Nov, 2013 [facility] [address] [id number] [address] [place] [address], [place] [address] 17 Nov, 2013 [facility] [address] [id number] [address] [place] [address], [place] [address] 17 Nov, 2013 [facility] [address] [id number] [address] [place] [address], [place] [address] 11 Nov, 2013 [facility] [address] [id number] [address] [place] [address], [place] [address] 11 Nov, 2013 [facility] [address] [id number] [address] [place] [address], [place] [address] 10 Nov, 2013 [facility] [address] [id number] [address] [place] [address], [place] [address] 10 Nov, 2013 [facility] [address] [id number] [address] [place] [address], [place] [address] 08 Nov, 2013 [facility] [address] [id number] [address] [place] [address], [place] [address] 08 Nov, 2013 [facility] [address] [id number] [address] [place] [address], [place] [address] Sep, [facility] [address] [id number] [address] [place] [address], [place] [address] Sep, 2013 [facility] [address] [id number] [address] [place] [address], [place] [address] 11 Sep, 2013 [facility] [address] [id number] [address] [place] [address], [place] [address] Sep, [facility] [address] [id number] [facility] [place] [address] Sep, [facility] [address] [id number] [address] [place] [address], [place] [address] Sep, [facility] [address] [id number] [address] [place] [address], [place] [address] Aug, [facility] [address] [id number] [address] [place] [address], [place] [address] Aug, [facility] [address] [id number] [address] [place] [address], [place] [address] Aug, [facility] [address] [id number] [address] [place] [address], [place] [address] Aug, [facility] [address] [id number] [address] [place] [address], [place] [address] Aug, [facility] [address] [id number] [address] [place] [address], [place] [address] Aug, [facility] [address] [id number] [address] [place] [address], [place] [address] Aug, [facility] [address] [id number] [address] [place] [address], [place] [address] Aug, [facility] [address] [id number] [address] [place] [address], [place] [address] Aug, [facility] [address] [id number] [address] [place] [address], [place] [address] Aug, [facility] [address] [id number] [address] [place] [address], [place] [address] Aug, [facility] [address] [id number] [address] [place] [address], [place] [address] July, [facility] [address] [id number] [address] [place] [address], [place] [address] July, [facility] [address] [id number] [facility] [place] [address] Jun, [facility] [address] [id number] [facility] [place] [address] Jun, [facility] [address] [id number] [address] [place] [address], [place] [address] Jun, [facility] [address] [id number] [address] [place] [address], [place] [address] Jun, [facility] [address] [id number] [address] [place] [address], [place] [address] Jun, [facility] [address] [id number] [address] [place] [address], [place] [address] Jun, [facility] [address] [id number] [address] [place] [address], [place] [address] Jun, [facility] [address] [id number] [address] [place] [address], [place] [address] Jun, [facility] [address] [id number] [address] [place] [address], [place] [address] Jun, [facility] [address] [id number] [address] [place] [address], [place] [address] Jun, [facility] [address] [id number] [address] [place] [address], [place] [address] Jun, [facility] [address] [id number] [address] [place] [address], [place] [address] Jun, [facility] [address] [id number] [address] [place] [address], [place] [address] May, [facility] [address] [id number] [address] [place] [address], [place] [address] May, [facility] [address] [id number] [address] [place] [address], [place] [address] May, [facility] [address] [id number] [address] [place] [address], [place] [address] May, [facility] [address] [id number] [facility] [place] [address] May, [facility] [address] [id number] [address] [place] [address], [place] [address] May, [facility] [address] [id number] [address] [place] [address], [place] [address] May, [facility] [address] [id number] [address] [place] [address], [place] [address] May, [facility] [address] [id number] [address] [place] [address], [place] [address] May, [facility] [address] [id number] [address] [place] [address], [place] [address] May, [facility] [address] [id number] [address] [place] [address], [place] [address] May, [facility] [address] [id number] [address] [place] [address], [place] [address] May, [facility] [address] [id number] [address] [place] [address], [place] [address] Apr, [facility] [address] [id number] [address] [place] [address], [place] [address] Apr, [facility] [address] [id number] [address] [place] [address], [place] [address] Apr, [facility] [address] [id number] [address] [place] [address], [place] [address] Apr, [facility] [address] [id number] [address] [place] [address], [place] [address] Apr, [facility] [address] [id number] [address] [place] [address], [place] [address] Apr, [facility] [address] [id number] [address] [place] [address], [place] [address] Apr, [facility] [address] [id number] [address] [place] [address], [place] [address] Apr, [facility] [address] [id number] [address] [place] [address], [place] [address] Apr, [facility] [address] [id number] [address] [place] [address], [place] [address] Apr, [facility] [address] [id number] [address] [place] [address], [place] [address] Apr, [facility] [address] [id number] [address] [place] [address], [place] [address] Apr, [facility] [address] [id number] [address] [place] [address], [place] [address] Apr, [facility] [address] [id number] [address] [place] [address], [place] [address] Apr, [facility] [address] [id number] [address] [place] [address], [place] [address] Apr, [facility] [address] [id number] [address] [place] [address], [place] [address] Apr, [facility] [address] [id number] [address] [place] [address], [place] [address] Apr, [facility] [address] [id number] [address] [place] [address], [place] [address] Jan, [facility] [address] [id number] [address] [place] [address], [place] [address] 13 Jan, 2013 [facility] [address] [id number] [address] [place] [address], [place] [address] 08 Jan, 2013 [facility] [address] [id number] [address] [place] [address], [place] [address] 07 Jan, 2013 [facility] [address] [id number] [address] [place] [address], [place] [address] 07 Jan, 2013 [facility] [address] [id number] [address] [place] [address] [place] [address] 07 Jan, 2013 [facility] [address] [id number] [address] [place] [address], [place] [address] Jan, [facility] [address] [id number] [address] [place] [address], [place] [address] Dec, [facility] [address] [id number] [address] [place] [address], [place] [address] Dec, [facility] [address] [id number] [address] [place] [address], [place] [address] Dec, [facility] [address] [id number] [address] [place] [address], [place] [address] Nov, [facility] [address] [id number] [address] [place] [address], [place] [address] Nov, [facility] [address] [id number] [address] [place] [address], [place] [address] 05 Nov, 2012 [facility] [address] [id number] [address] [place] [address], [place] [address] Nov, [facility] [address] [id number] [address] [place] [address], [place] [address] Oct, [facility] [address] [id number] [address] [place] [address], [place] [address] Oct, [facility] [address] [id number] [address] [place] [address], [place] [address] Oct, [facility] [address] [id number] [address] [place] [address], [place] [address] Oct, [facility] [address] [id number] [address] [place] [address], [place] [address] Oct, [facility] [address] [id number] [address] [place] [address], [place] [address] Sep, [facility] [address] [id number] [address] [place] [address], [place] [address] Sep, [facility] [address] [id number] [address] [place] [address], [place] [address] Sep, [facility] [address] [id number] [address] [place] [address], [place] [address] Sep, [facility] [address] [id number] [address] [place] [address], [place] [address] Sep, [facility] [address] [id number] [address] [place] [address], [place] [address] Sep, [facility] [address] [id number] [address] [place] [address], [place] [address] Sep, [facility] [address] [id number] [address] [place] [address], [place] [address] Aug, [facility] [address] [id number] [address] [place] [address], [place] [address] Aug, [facility] [address] [id number] [address] [place] [address], [place] [address] July, [facility] [address] [id number] [address] [place] [address], [place] [address] Jun, [facility] [address] [id number] [address] [place] [address], [place] [address] Jun, [facility] [address] [id number] [address] [place] [address], [place] [address] Jun, [facility] [address] [id number] [address] [place] [address], [place] [address] Apr, [facility] [address] [id number] [address] [place] [address], [place] [address] Apr, [facility] [address] [id number] [address] [place] [address], [place] [address] Apr, [facility] [address] [id number] [address] [place] [address], [place] [address] Mar, [facility] [address] [id number] [address] [place] [address], [place] [address] 24 Mar, 2012 [facility] [address] [id number] [address] [place] [address], [place] [address] 2012 [facility] [address] [id number] [address] [place] [address], [place] [address] 09 Mar, 2012 [facility] [address] [id number] [address] [place] [address], [place] [address] 07 Mar, 2012 [facility] [address] [id number] [address] [place] [address], [place] [address] 14 Feb, 2012 [facility] [address] [id number] [address] [place] [address], [place] [address] 14 Feb, 2012 [facility] [address] [id number] [address] [place] [address], [place] [address] 13 Jan, 2012 [facility] [address] [id number] [address] [place] [address], [place] [address] 13 Jan, 2012 [facility] [address] [id number] [address] [place] [address], [place] [address] 13 Jan, 2012 [facility] [address] [id number] [address] [place] [address], [place] [address] 13 Jan, 2012 [facility] [address] [id number] [address] [place] [address], [place] [address] 07 Jan, 2012 [facility] [address] [id number] [address] [place] [address], [place] [address] 07 Jan, 2012 [facility] [address] [id number] [address] [place] [address], [place] [address] Jan, [facility] [address] [id number] [address] [place] [address], [place] [address] Dec, [facility] [address] [id number] [address] [place] [address], [place] [address] Dec, [facility] [address] [id number] [address] [place] [address], [place] [address] 30 Dec, 2011 [facility] [address] [id number] [address] [place] [address], [place] [address] Dec, [facility] [address] [id number] [address] [place] [address], [place] [address] Dec, [facility] [address] [id number] [address] [place] [address], [place] [address] Dec, [facility] [address] [id number] [address] [place] [address], [place] [address] Dec, [facility] [address] [id number] [address] [place] [address], [place] [address] Dec, [facility] [address] [id number] [address] [place] [address], [place] [address] Dec, [facility] [address] [id number] [address] [place] [address], [place] [address] Dec, [facility] [address] [id number] [address] [place] [address], [place] [address] Oct, [facility] [address] [id number] [address] [place] [address], [place] [address] Oct, [facility] [address] [id number] [address] [place] [address], [place] [address] Aug, [facility] [address] [id number] [address] [place] [address], [place] [address] Aug, [facility] [address] [id number] [address] [place] [address], [place] [address] July, [facility] [address] [id number] [address] [place] [address], [place] [address] Jun, [facility] [address] [id number] [address] [place] [address], [place] [address] Jun, [facility] [address] [id number] [address] [place] [place] [address] [address] May, [facility] [address] [id number] [address] [place] [address], [place] [id number] Apr, [facility] [address] [id number] [address] [place] [address], [place] [address] 16 Apr, 2011 [facility] [address] [id number] [address] [place] [address], [place] [id number] 19 Mar, 2011 [facility] [address] [id number] [address] [place] [address], [place] [id number] 16 Mar, 2011 [facility] [address] [id number] [address] [place] [address], [place] [id number] 19 Feb, 2011 [facility] [address] [id number] [address] [place] [address], [place] [id number] 15 Feb, 2011 [facility] [address] [id number] [address] [place] [address], [place] [id number] 13 Feb, 2011 [facility] [address] [id number] [address] [place] [address], [place] [address] 13 Feb, 2011 [facility] [address] [id number] [address] [place] [address], [place] [address] Jan, [facility] [address] [id number] [address] [place] [address], [place] [id number] 17 Dec, 2010 [facility] [address] [id number] [address] [place] [id number] 08 Feb, 2010 [facility] [address] [id number] [address] [place] [address], [place] [address] 02 Feb, 2010 [facility] [address] [id number] [address] [place] [id number] Feb, [facility] [address] [id number] [address] [place] [address], [place] [address] Feb, [facility] [address] [id number] [address] [place] [id number] 15 Dec, 2009 [facility] [address] [id number] [address] [place] [address], [place] [address] 15 Dec, 2009 [facility] [address] [id number] [address] [place] [id number] Oct, [facility] [address] [facility] [id number] [address] [place] [id number] Jun, [facility] [address] [facility] [id number] [address] [place] [id number] Feb, [facility] [address] [facility] [id number] [address] [place] [id number] Feb, [facility] [address] [facility] [id number] [address] [place] [id number] Feb, [facility] [address] [facility] [id number] [address] [place] [id number] Dec, IMMUNIZATIONS No Known Immunizations SOCIAL HISTORY [...]
--- OUTSIDE RECORDS SUMMARY | 2019-10-19 12:30 | XMS REPORT ---
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) use of anticoagulants Z79.01 Active 777271862 Problem Hypertriglyceridemia E78.1 Active 024906847 Problem 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 Active 979978790 Problem Pelvic pain R10.2 Active 21904921 Problem Peripheral edema R60.9 Active 271 472378 Problem Moderate episode of recurrent major depressive disorder F33.1 Active 436628799 Problem Presence of IVC filter Z95.828 Active 702559855 Problem Vitamin D deficiency E55.9 Active 45590594 Problem Generalized anxiety disorder F41.1 A ctive 878991633 Problem Excessive daytime sleepiness G47.19 A ctive 228688394603 Problem Gastroesophageal reflux disease, esophagitis pre sence not specified K21.9 Active 462671360 Problem Thyroid nodule E04.1 Active 64818 5005 Problem Morbid obesity E66.01 Active 07442 6002 ALLERGIES No Information ENCOUNTERS Encounter Location Date Diagnosis [facility] [address] [facility] [id number] [address] [place] [id number] Nov, Thyroid nodule E04.1 [facility] [address] [facility] [id number] [address] [place] [id number] Nov, Thyroid nodule E04.1 [facility] [address] [facility] [id number] [address] [place] [phone] Oct, Syncope, unspecified syncope type R55 and Encounter for weight management Z76.89 [facility] [address] [id number] [address] [place] [address] Oct, Morbid obesity E66.01 [facility] [address] [id number] [address] [place] [id number] Oct, Hypertriglyceridemia E78.1 [facility] [address] [facility] [id number] [address] [place] [phone] Oct, [facility] [address] [id number] [address] [place] [phone] Oct, Hypertriglyceridemia E78.1 [place] [address] [facility] [id number] [address] [place] [id number] Sep, Hypertriglyceridemia E78.1 a nd Vitamin D deficiency E55.9 [place] [address] [facility] [id number] [address] [place] [id number] Sep, [facility] [address] [facility] [id number] [address] [place] [address] Sep, Morbid obesity E66.01 ; Mode rate episode of recurrent major depressive disorder F33.1 ; Hypertriglyceridemia E78.1 and Vitamin D deficiency E55.9 [facility] [address] [facility] [id number] [address] [place] [address] Aug, [facility] [address] [facility] [id number] [address] [place] [phone] July, [facility] [address] [id number] [address] [place] [id number] July, [facility] [address] [facility] [id number] [address] [place] [id number] Jun, [facility] [address] [facility] [id number] [address] [place] [id number] Jun, [facility] [address] [facility] [id number] [address] [place] [address] Jun, Closed compression fracture of L3 lumbar vertebra with routine healing, subsequent encounter S32.030D and Drug-induced constipation K59.03 [facility] [address] [place] [id number] [address] [place] [id number] Jun, [facility] [address] [place] [id number] [place] [address] Jun, [facility] [address] [id number] Apr, [facility] [address] [phone] Apr, Morbid obesity E66.01 [facility] [address] [address] Apr, Morbid obesity E66.01 ; Hype rtriglyceridemia E78.1 ; Gastroesophageal reflux disease, esophagitis presence not specified K21.9 and Joint pain M25.50 [facility] [address] [place] [id number] [address] [place] [id number] Feb, [facility] [address] [address] Feb, [facility] [address] [place] [id number] [address] [place] [phone] Jan, Acute bacterial conjunctivit is H10.30 [facility] [address] [place] [id number] [address] [place] [id number] Dec, [facility] [address] [place] [id number] [address] [place] [phone] Dec, [facility] [address] [place] [id number] [address] [place] [id number] Nov, [facility] [address] [id number] 07 Nov, 2017 Obstructive sleep apnea G47. 33 ; Morbid obesity E66.01 and Gastroesophageal reflux disease, esophagitis presence not specified K21.9 [facility] [address] [facility] [id number] [address] [place] [address] [id number] 06 Nov, 2017 Encounter for examination of eyes and vision without abnormal findings Z01.00 [facility] [address] [facility] [id number] [address] [place] [id number] 31 Oct, 2017 Thyroid nodule E04.1 and Scr eening for breast cancer Z12.31 [place] [address] [place] [id number] [place] [address] 23 Oct, 2017 History of DVT (deep vein th rombosis) Z86.718 ; Thyroid nodule E04.1 and Gastroesophageal reflux disease, esophagitis presence not specified K21.9 [place] [address] [address] Oct, [place] [address] [place] [id number] [place] [address] Sep, [place] [address] [address] Aug, [place] [address] [place] [id number] [address] [place] [id number] Aug, [place] [address] [address] Aug, Acute pain of left shoulder M25.512 and Thyroid nodule E04.1 [place] [address] [place] [id number] [address] [place] [address] July, Superior glenoid labrum lesi on of left shoulder, subsequent encounter S43.432D [facility] [address] [place] [id number] [address] [place] [address] Jun, History of DVT (deep vein th rombosis) Z86.718 [facility] [address] [place] [id number] [address] [place] [address] Jun, History of DVT (deep vein th rombosis) Z86.718 [facility] [address] [place] [id number] [address] [place] [id number] Jun, Impingement syndrome, should er, left M75.42 [place] [address] [id number] [address] [place] [address] May, Subacromial bursitis of left shoulder joint M75.52 [place] [address] [facility] [id number] [address] [place] [id number] May, [place] [address] [facility] [id number] [address] [place] [address] May, Hypertriglyceridemia E78.1 ; intermediate project manager (current) use of anticoagulants Z79.01 and Excessive daytime sleepiness G47.19 [place] [address] [facility] [id number] [address] [place] [address] May, History of DVT (deep vein th rombosis) Z86.718 ; Generalized anxiety disorder F41.1 ; Hypertriglyceridemia E78.1 ; intermediate project manager (current) use of anticoagulants Z79.01 ; Subacromial bursitis of left shoulder joint M75.52 and Excessive daytime sleepiness G47.19 [place] [address] [id number] [address] [place] [address] May, [place] [address] [facility] [id number] [address] [place] [address] May, intermediate project manager (current) use of a nticoagulants Z79.01 [place] [address] [id number] [address] [place] [address] Apr, intermediate project manager (current) use of a nticoagulants Z79.01 [place] [address] [id number] [address] [place] [phone] Apr, intermediate project manager (current) use of a nticoagulants Z79.01 [place] [address] [facility] [id number] [address] [place] [id number] Apr, group home (current) use of a nticoagulants Z79.01 [place] [address] [facility] [id number] [address] [place] [id number] Apr, [facility] [address] [id number] [address] [place] [id number] 16 Apr, 2017 group home (current) use of a nticoagulants Z79.01 [facility] [address] [id number] [address] [place] [id number] 13 Apr, 2017 intermediate project manager (current) use of a nticoagulants Z79.01 [facility] [address] [id number] [address] [place] [id number] Apr, group home (current) use of a nticoagulants Z79.01 [facility] [address] [id number] [address] [place] [address] Apr, group home (current) use of a nticoagulants Z79.01 [facility] [address] [id number] [address] [place] [phone] Apr, intermediate project manager (current) use of a nticoagulants Z79.01 [facility] [address] [id number] [address] [place] [address] Apr, intermediate project manager (current) use of a nticoagulants Z79.01 [facility] [address] [id number] [address] [place] [phone] Mar, group home (current) use of a nticoagulants Z79.01 [facility] [address] [id number] [address] [place] [phone] Mar, [facility] [address] [id number] [address] [place] [phone] Mar, group home (current) use of a nticoagulants Z79.01 [facility] [address] [id number] [address] [place] [address] [id number] Jan, Dental examination Z01.20 [facility] [address] [id number] [address] [place] [address] [id number] Jan, [facility] [address] [id number] [address] [place] [phone] Jan, group home (current) use of a nticoagulants Z79.01 [facility] [address] [id number] [address] [place] [phone] Jan, History of DVT (deep vein th rombosis) Z86.718 [facility] [address] [id number] [address] [place] [address] Jan, Generalized anxiety disorder F41.1 and Peripheral edema R60.9 [place] [address] [id number] [address] [place] [phone] Nov, History of DVT (deep vein th rombosis) Z86.718 [facility] [address] [facility] [id number] [address] [place] [id number] Nov, intermediate project manager (current) use of a nticoagulants Z79.01 [facility] [address] [id number] [address] [place] [phone] Nov, Acute non-recurrent maxillar y sinusitis J01.00 [facility] [address] [id number] [address] [place] [id number] Oct, intermediate project manager (current) use of a nticoagulants Z79.01 [facility] [address] [id number] [address] [place] [address] Oct, Personal history of venous t hrombosis and embolism Z86.718 [facility] [address] [id number] [address] [place] [id number] Sep, [facility] [address] [id number] [address] [place] [phone] Sep, Personal history of venous t hrombosis and embolism Z86.718 [facility] [address] [facility] [id number] [address] [place] [id number] Sep, intermediate project manager (current) use of a nticoagulants Z79.01 [facility] [address] [id number] [address] [place] [address] Sep, intermediate project manager (current) use of a nticoagulants Z79.01 [facility] [address] [id number] [address] [place] [address] Sep, Generalized anxiety disorder F41.1 and History of DVT (deep vein thrombosis) Z86.718 [place] [address] [id number] [address] [place] [id number] Aug, History of DVT (deep vein th rombosis) Z86.718 ; Generalized anxiety disorder F41.1 ; intermediate project manager (current) use of anticoagulants Z79.01 ; Pelvic pain R10.2 ; Hypertriglyceridemia E78.1 ; Excessive daytime sleepiness G47.19 ; Colon cancer screening Z12.11 ; Screening for breast cancer Z12.39 ; Peripheral edema R60.9 and Gastroesophageal reflux disease, esophagitis presence not specified K21.9 [place] [address] [facility] [id number] [address] [place] [id number] Aug, [place] [address] [facility] [id number] [address] [place] [id number] July, [place] [address] [facility] [id number] [address] [place] [phone] July, History of DVT (deep vein th rombosis) Z86.718 [place] [address] [facility] [id number] [address] [place] [id number] Jun, Generalized anxiety disorder F41.1 [place] [address] [facility] [id number] [address] [place] [address] Jun, History of DVT (deep vein th rombosis) Z86.718 [place] [address] [facility] [id number] [address] [place] [address] Jun, History of DVT (deep vein th rombosis) Z86.718 [place] [id number] [place] [address] Jun, History of DVT (deep vein th rombosis) Z86.718 [facility] [address] [place] [id number] [address] [place] [address] Jun, History of DVT (deep vein th rombosis) Z86.718 [facility] [id number] [place] [address] May, History of DVT (deep vein th rombosis) Z86.718 [facility] [address] [place] [id number] [address] [place] [phone] May, intermediate project manager (current) use of a nticoagulants Z79.01 [place] [address] [address] May, intermediate project manager (current) use of a nticoagulants Z79.01 [place] [address] [place] [id number] [address] [place] [address] May, History of DVT (deep vein th rombosis) Z86.718 [facility] [address] [place] [id number] [address] [place] [address] Apr, Bacterial conjunctivitis of left eye H10.9 and H/O motion sickness Z87.898 [facility] [id number] [place] [address] Apr, History of DVT (deep vein th rombosis) Z86.718 [place] [address] [place] [id number] [address] [place] [id number] Apr, History of DVT (deep vein th rombosis) Z86.718 [place] [address] [place] [id number] [address] [place] [address] Apr, History of DVT (deep vein th rombosis) Z86.718 [facility] [address] [place] [id number] [address] [place] [id number] 14 Apr, 2016 group home (current) use of a nticoagulants Z79.01 [facility] [address] [id number] [address] [place] [address] Mar, [facility] [address] [facility] [id number] [address] [place] [id number] Mar, group home (current) use of a nticoagulants Z79.01 [facility] [address] [id number] [address] [place] [phone] Mar, Hypertriglyceridemia E78.1 a nd intermediate project manager (current) use of anticoagulants Z79.01 [place] [address] [id number] [address] [place] [address] Feb, group home (current) use of a nticoagulants Z79.01 [place] [address] [facility] [id number] [address] [place] [phone] Feb, group home (current) use of a nticoagulants Z79.01 [place] [address] [id number] [address] [place] [id number] Feb, group home (current) use of a nticoagulants Z79.01 [facility] [address] [id number] [address] [place] [id number] Dec, [place] [address] [facility] [id number] [address] [place] [address] Nov, [facility] [address] [id number] [address] [place] [id number] Nov, History of DVT (deep vein th rombosis) Z86.718 ; Tremulousness R25.1 ; Generalized anxiety disorder F41.1 ; Peripheral edema R60.9 and Hypertriglyceridemia E78.1 [place] [address] [facility] [id number] [address] [place] [phone] Oct, History of DVT (deep vein th rombosis) Z86.718 [facility] [address] [id number] [address] [place] [address] Oct, [place] [address] [facility] [id number] [address] [place] [address] Sep, History of DVT (deep vein th rombosis) Z86.718 [place] [address] [facility] [id number] [address] [place] [address] Sep, intermediate project manager (current) use of a nticoagulants Z79.01 [place] [address] [id number] [address] [place] [phone] July, [place] [address] [facility] [id number] [address] [place] [address] July, intermediate project manager (current) use of a nticoagulants Z79.01 [place] [address] [facility] [id number] [address] [place] [address] July, group home (current) use of a nticoagulants Z79.01 [place] [address] [facility] [id number] [address] [place] [address] Jun, intermediate project manager (current) use of a nticoagulants Z79.01 [facility] [place] [address] [facility] [id number] [address] [place] [address] Jun, Coccyx pain M53.3 ; Encounte r for therapeutic drug level monitoring Z51.81 and intermediate project manager current use 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.01 [place] [address] [facility] [id number] [address] [place] [phone] May, Abnormal mammogram R92.8 [facility] [address] [facility] [id number] [address] [place] [address] May, [facility] [place] [address] [address] [facility] [id number] [address] [place] [address] May, Acute vaginitis N76.0 and En counter for other screening for malignant neoplasm of breast Z12.39 [place] [address] [place] [id number] [address] [place] [address] Apr, [facility] [address] [id number] [address] [place] [id number] Apr, [facility] [address] [facility] [id number] [address] [place] [address] Apr, Peripheral edema R60.9 [facility] [address] [facility] [id number] [address] [place] [phone] Apr, intermediate project manager (current) use of a nticoagulants Z79.01 [facility] [address] [id number] [address] [place] [address] Apr, Peripheral edema R60.9 and L jose martin term (current) 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 Z79.01 [place] [address] [facility] [id number] [address] [place] [address] Apr, group home (current) use of a nticoagulants Z79.01 [place] [address] [id number] [address] [place] [phone] Apr, [facility] [address] [facility] [id number] [address] [place] [address] Apr, group home (current) use of a nticoagulants Z79.01 [place] [address] [facility] [id number] [address] [place] [phone] Apr, Peripheral edema R60.9 [facility] [address] [facility] [id number] [address] [place] [id number] Mar, intermediate project manager (current) use of a nticoagulants Z79.01 [facility] [address] [facility] [id number] [address] [place] [phone] Mar, group home (current) use of a nticoagulants Z79.01 and Hypertriglyceridemia E78.1 [place] [address] [facility] [id number] [address] [place] [phone] Mar, group home (current) use of a nticoagulants Z79.01 [facility] [address] [id number] [address] [place] [phone] Mar, group home (current) use of a nticoagulants Z79.01 [place] [address] [id number] [address] [place] [address] Mar, [place] [address] [id number] [address] [place] [phone] Mar, group home (current) use of a nticoagulants Z79.01 ; Hypertriglyceridemia E78.1 ; Personal history of venous thrombosis and embolism Z86.718 and Lump R22.9 [place] [address] [id number] [address] [place] [address] Mar, Personal history of venous t hrombosis and embolism Z86.718 [place] [address] [id number] [address] [place] [id number] Mar, Personal history of venous t hrombosis and embolism Z86.718 [place] [address] [id number] [place] [id number] Mar, [place] [address] [id number] [address] [place] [phone] Dec, Personal history of venous t hrombosis and embolism Z86.718 [place] [address] [id number] [address] [place] [id number] Dec, Personal history of venous t hrombosis and embolism V12.51 [place] [address] [id number] [address] [place] [phone] Nov, Personal history of venous t hrombosis and embolism V12.51 [place] [address] [id number] [address] [place] [id number] Nov, Personal history of venous t hrombosis and embolism V12.51 [place] [address] [id number] [address] [place] [address] Nov, Personal history of venous t hrombosis and embolism V12.51 [facility] [address] [id number] [address] [place] [address] Nov, Personal history of venous t hrombosis and embolism V12.51 [facility] [address] [id number] [address] [place] [address] Nov, [facility] [address] [id number] [address] [place] [address] Oct, Dysuria 788.1 [place] [address] [id number] [address] [place] [address] Oct, Personal history of venous t hrombosis and embolism V12.51 [facility] [address] [id number] [address] [place] [address] Oct, [facility] [address] [id number] [address] [place] [address] Oct, Personal history of venous t hrombosis and embolism V12.51 [place] [address] [id number] [address] [place] [address] Sep, Personal history of venous t hrombosis and embolism V12.51 [place] [address] [id number] [address] [place] [address] Sep, Personal history of venous t hrombosis and embolism V12.51 [facility] [address] [id number] [address] [place] [address] Aug, Personal history of venous t hrombosis and embolism V12.51 [place] [address] [id number] [address] [place] [address] Aug, Personal history of venous t hrombosis and embolism V12.51 [facility] [address] [id number] [address] [place] [address] Aug, Personal history of venous t hrombosis and embolism V12.51 [facility] [address] [id number] [address] [place] [address] July, Generalized anxiety disorder 300.02 ; Abdominal pain, left lower quadrant 789.04 and Personal history of venous thrombosis and embolism V12.51 [facility] [address] [id number] [address] [place] [id number] 14 Jun, 2014 [facility] [address] [id number] [address] [place] [address] Jun, [facility] [address] [id number] [address] [place] [address] May, [facility] [address] [id number] [address] [place] [address] May, [facility] [address] [id number] [address] [place] [address] May, [facility] [address] [id number] [address] [place] [address] May, [facility] [address] [id number] [address] [place] [address] May, [facility] [address] [id number] [address] [place] [address] May, [facility] [address] [id number] [address] [place] [address] May, [facility] [address] [id number] [address] [place] [address] May, [facility] [address] [id number] [address] [place] [address] Apr, [facility] [address] [id number] [address] [place] [address] Apr, [facility] [address] [id number] [address] [place] [id number] Apr, [facility] [address] [id number] [address] [place] [address] Apr, [facility] [address] [id number] [address] [place] [address], [place] [address] Apr, [facility] [address] [id number] [address] [place] [address], [place] [address] Mar, [facility] [address] [id number] [address] [place] [address], [place] [address] Mar, [facility] [address] [id number] [address] [place] [address], [place] [address] Mar, [facility] [address] [id number] [address] [place] [address], [place] [address] Mar, [facility] [address] [id number] [address] [place] [address], [place] [address] Mar, [facility] [address] [id number] [address] [place] [address], [place] [address] Mar, [facility] [address] [id number] [address] [place] [address], [place] [address] Feb, [facility] [address] [id number] [address] [place] [address], [place] [address] Feb, [facility] [address] [id number] [address] [place] [address], [place] [address] Feb, [facility] [address] [id number] [address] [place] [address], [place] [address] Feb, [facility] [address] [id number] [address] [place] [address], [place] [address] Feb, [facility] [address] [id number] [address] [place] [address], [place] [address] Feb, [facility] [address] [id number] [address] [place] [address], [place] [address] Feb, [facility] [address] [id number] [address] [place] [address], [place] [address] Feb, [facility] [address] [id number] [address] [place] [address], [place] [address] Feb, [facility] [address] [id number] [address] [place] [address], [place] [address] Feb, [facility] [address] [id number] [address] [place] [address], [place] [address] Jan, [facility] [address] [id number] [address] [place] [address], [place] [address] Jan, [facility] [address] [id number] [address] [place] [address], [place] [address] Jan, [facility] [address] [id number] [address] [place] [address], [place] [address] Jan, [facility] [address] [id number] [address] [place] [address], [place] [address] Jan, [facility] [address] [id number] [address] [place] [address], [place] [address] Jan, [facility] [address] [id number] [address] [place] [address], [place] [address] Jan, [facility] [address] [id number] [address] [place] [address], [place] [address] Jan, [facility] [address] [id number] [address] [place] [address], [place] [address] Jan, [facility] [address] [id number] [address] [place] [address], [place] [address] Jan, [facility] [address] [id number] [address] [place] [address], [place] [address] Dec, [facility] [address] [id number] [address] [place] [address], [place] [address] Dec, [facility] [address] [id number] [address] [place] [address], [place] [address] Dec, [facility] [address] [id number] [address] [place] [address], [place] [address] Dec, [facility] [address] [id number] [address] [place] [address], [place] [address] Dec, [facility] [address] [id number] [address] [place] [address], [place] [address] Dec, [facility] [address] [id number] [address] [place] [address], [place] [address] Dec, [facility] [address] [id number] [address] [place] [address], [place] [address] Dec, [facility] [address] [id number] [address] [place] [address], [place] [address] Dec, [facility] [address] [id number] [address] [place] [address], [place] [address] Dec, [facility] [address] [id number] [address] [place] [address], [place] [address] Dec, [facility] [address] [id number] [address] [place] [address], [place] [address] Dec, [facility] [address] [id number] [address] [place] [address], [place] [address] Dec, [facility] [address] [id number] [address] [place] [address] Dec, [facility] [address] [id number] [address] [place] [address], [place] [address] Dec, [facility] [address] [id number] [address] [place] [address] Nov, [facility] [address] [id number] [address] [place] [address], [place] [address] Nov, [facility] [address] [id number] [address] [place] [address], [place] [address] Nov, [facility] [address] [id number] [address] [place] [address], [place] [address] Nov, [facility] [address] [id number] [facility] [place] [address] 24 Sep, 2013 [facility] [address] [id number] [address] [place] [address], [place] [address] 24 Sep, 2013 [facility] [address] [id number] [address] [place] [address], [place] [address] 23 Sep, 2013 [facility] [address] [id number] [address] [place] [address], [place] [address] 23 Sep, 2013 [facility] [address] [id number] [address] [place] [address], [place] [address] 18 Sep, 2013 [facility] [address] [id number] [address] [place] [address], [place] [address] 18 Nov, 2013 [facility] [address] [id number] [address] [place] [address], [place] [address] 17 Nov, 2013 [facility] [address] [id number] [address] [place] [address], [place] [address] 17 Nov, 2013 [facility] [address] [id number] [address] [place] [address], [place] [address] 11 Nov, 2013 [facility] [address] [id number] [address] [place] [address], [place] [address] 11 Nov, 2013 [facility] [address] [id number] [address] [place] [address], [place] [address] 10 Nov, 2013 [facility] [address] [id number] [address] [place] [address], [place] [address] 10 Nov, 2013 [facility] [address] [id number] [address] [place] [address], [place] [address] 08 Nov, 2013 [facility] [address] [id number] [address] [place] [address], [place] [address] 08 Nov, 2013 [facility] [address] [id number] [address] [place] [address], [place] [address] 22 Sep, 2013 [facility] [address] [id number] [address] [place] [address], [place] [address] 22 Sep, 2013 [facility] [address] [id number] [facility] [place] [address] Sep, [facility] [address] [id number] [facility] [place] [address] Sep, [facility] [address] [id number] [facility] [place] [address] Sep, [facility] [address] [id number] [facility] [place] [address] Sep, [facility] [address] [id number] [facility] [place] [address] Aug, [facility] [address] [id number] [address] [place] [address], [place] [address] Aug, [facility] [address] [id number] [facility] [place] [address] Aug, [facility] [address] [id number] [address] [place] [address], [place] [address] Aug, [facility] [address] [id number] [address] [place] [address], [place] [address] Aug, [facility] [address] [id number] [address] [place] [address], [place] [address] Aug, [facility] [address] [id number] [address] [place] [address], [place] [address] Aug, [facility] [address] [id number] [address] [place] [address], [place] [address] Aug, [facility] [address] [id number] [address] [place] [address], [place] [address] Aug, [facility] [address] [id number] [address] [place] [address], [place] [address] Aug, [facility] [address] [id number] [address] [place] [address], [place] [address] Aug, [facility] [address] [id number] [address] [place] [address], [place] [address] July, [facility] [address] [id number] [address] [place] [address], [place] [address] July, [facility] [address] [id number] [address] [place] [address], [place] [address] Jun, [facility] [address] [id number] [address] [place] [address], [place] [address] Jun, [facility] [address] [id number] [address] [place] [address], [place] [address] Jun, [facility] [address] [id number] [address] [place] [address], [place] [address] Jun, [facility] [address] [id number] [address] [place] [address], [place] [address] Jun, [facility] [address] [id number] [address] [place] [address], [place] [address] Jun, [facility] [address] [id number] [address] [place] [address], [place] [address] Jun, [facility] [address] [id number] [address] [place] [address], [place] [address] Jun, [facility] [address] [id number] [address] [place] [address], [place] [address] Jun, [facility] [address] [id number] [address] [place] [address], [place] [address] Jun, [facility] [address] [id number] [address] [place] [address], [place] [address] Jun, [facility] [address] [id number] [address] [place] [address], [place] [address] Jun, [facility] [address] [id number] [address] [place] [address], [place] [address] May, [facility] [address] [id number] [address] [place] [address], [place] [address] May, [facility] [address] [id number] [facility] [place] [address] 20 May, 2013 [facility] [address] [id number] [facility] [place] [address] May, [facility] [address] [id number] [facility] [place] [address] May, [facility] [address] [id number] [address] [place] [address], [place] [address] May, [facility] [address] [id number] [address] [place] [address], [place] [address] May, [facility] [address] [id number] [address] [place] [address], [place] [address] May, [facility] [address] [id number] [address] [place] [address], [place] [address] May, [facility] [address] [id number] [address] [place] [address], [place] [address] May, [facility] [address] [id number] [address] [place] [address], [place] [address] May, [facility] [address] [id number] [address] [place] [address], [place] [address] May, [facility] [address] [id number] [address] [place] [address], [place] [address] Apr, [facility] [address] [id number] [address] [place] [address], [place] [address] Apr, [facility] [address] [id number] [address] [place] [address], [place] [address] Apr, [facility] [address] [id number] [address] [place] [address], [place] [address] Apr, [facility] [address] [id number] [address] [place] [address], [place] [address] Apr, [facility] [address] [id number] [address] [place] [address], [place] [address] Apr, [facility] [address] [id number] [address] [place] [address], [place] [address] Apr, [facility] [address] [id number] [address] [place] [address], [place] [address] Apr, [facility] [address] [id number] [address] [place] [address], [place] [address] Apr, [facility] [address] [id number] [address] [place] [address], [place] [address] Apr, [facility] [address] [id number] [address] [place] [address], [place] [address] Apr, [facility] [address] [id number] [address] [place] [address], [place] [address] Apr, [facility] [address] [id number] [address] [place] [address], [place] [address] Apr, [facility] [address] [id number] [address] [place] [address], [place] [address] Apr, [facility] [address] [id number] [address] [place] [address], [place] [address] Apr, [facility] [address] [id number] [address] [place] [address], [place] [address] Apr, [facility] [address] [id number] [address] [place] [address], [place] [address] Apr, [facility] [address] [id number] [address] [place] [address], [place] [address] Jan, [facility] [address] [id number] [address] [place] [address], [place] [address] Jan, [facility] [address] [id number] [address] [place] [address], [place] [address] Jan, [facility] [address] [id number] [address] [place] [address], [place] [address] Jan, [facility] [address] [id number] [address] [place] [address], [place] [address] Jan, [facility] [address] [id number] [address] [place] [address], [place] [address] Jan, [facility] [address] [id number] [address] [place] [address], [place] [address] Jan, [facility] [address] [id number] [address] [place] [address], [place] [address] Dec, [facility] [address] [id number] [address] [place] [address], [place] [address] Dec, [facility] [address] [id number] [address] [place] [address], [place] [address] Dec, [facility] [address] [id number] [address] [place] [address], [place] [address] Nov, [facility] [address] [id number] [address] [place] [address], [place] [address] Nov, [facility] [address] [id number] [address] [place] [address], [place] [address] 05 Nov, 2012 [facility] [address] [id number] [address] [place] [address], [place] [address] Nov, [facility] [address] [id number] [address] [place] [address], [place] [address] Oct, [facility] [address] [id number] [address] [place] [address], [place] [address] Oct, [facility] [address] [id number] [address] [place] [address], [place] [address] Oct, [facility] [address] [id number] [address] [place] [address], [place] [address] Oct, [facility] [address] [id number] [address] [place] [address], [place] [address] Oct, [facility] [address] [id number] [address] [place] [address], [place] [address] Sep, [facility] [address] [id number] [address] [place] [address], [place] [address] Sep, [facility] [address] [id number] [address] [place] [address], [place] [address] Sep, [facility] [address] [id number] [address] [place] [address], [place] [address] Sep, [facility] [address] [id number] [address] [place] [address], [place] [address] Sep, [facility] [address] [id number] [address] [place] [address], [place] [address] Sep, [facility] [address] [id number] [address] [place] [address], [place] [address] Sep, [facility] [address] [id number] [address] [place] [address], [place] [address] Aug, [facility] [address] [id number] [address] [place] [address], [place] [address] Aug, [facility] [address] [id number] [address] [place] [address], [place] [address] July, [facility] [address] [id number] [address] [place] [address], [place] [address] Jun, [facility] [address] [id number] [address] [place] [address], [place] [address] Jun, [facility] [address] [id number] [address] [place] [address], [place] [address] Jun, [facility] [address] [id number] [address] [place] [address], [place] [address] Apr, [facility] [address] [id number] [address] [place] [address], [place] [address] Apr, [facility] [address] [id number] [address] [place] [address], [place] [address] Apr, [facility] [address] [id number] [address] [place] [address], [place] [address] Mar, [facility] [address] [id number] [address] [place] [address], [place] [address] 24 Mar, 2012 [facility] [address] [id number] [address] [place] [address] [address] 2012 [facility] [address] [id number] [address] [place] [address], [place] [address] 09 Mar, 2012 [facility] [address] [id number] [address] [place] [address], [place] [address] Mar, [facility] [address] [id number] [address] [place] [address], [place] [address] 14 Feb, 2012 [facility] [address] [id number] [address] [place] [address], [place] [address] 14 Feb, 2012 [facility] [address] [id number] [address] [place] [address], [place] [address] 13 Jan, 2012 [facility] [address] [id number] [address] [place] [address], [place] [address] 13 Jan, 2012 [facility] [address] [id number] [address] [place] [address], [place] [address] Jan, [facility] [address] [id number] [address] [place] [address], [place] [address] 13 Jan, 2012 [facility] [address] [id number] [address] [place] [address], [place] [address] Jan, [facility] [address] [id number] [address] [place] [address], [place] [address] 07 Jan, 2012 [facility] [address] [id number] [address] [place] [address], [place] [address] 06 Jan, 2012 [facility] [address] [address] [id number] [address] [place] [address], [place] [address] Dec, [facility] [address] [id number] [address] [place] [address], [place] [address] Dec, [facility] [address] [id number] [address] [place] [address], [place] [address] Dec, [facility] [address] [id number] [address] [place] [address], [place] [address] Dec, [facility] [address] [id number] [address] [place] [address], [place] [address] Dec, [facility] [address] [id number] [address] [place] [address], [place] [address] Dec, [facility] [address] [id number] [address] [place] [address], [place] [address] Dec, [facility] [address] [id number] [address] [place] [address], [place] [address] Dec, [facility] [address] [id number] [address] [place] [address], [place] [address] Dec, [facility] [address] [id number] [address] [place] [address], [place] [address] Dec, [facility] [address] [id number] [address] [place] [address], [place] [address] Oct, [facility] [address] [id number] [address] [place] [id number] Oct, [facility] [address] [id number] [address] [place] [id number] Aug, [facility] [address] [id number] [address] [place] [id number] Aug, [facility] [address] [id number] [address] [place] [address], [place] [address] July, [facility] [address] [id number] [address] [place] [address], [place] [address] Jun, [facility] [address] [id number] [address] [place] [address], [place] [address] Jun, [facility] [address] [id number] [address] [place] [address], [place] [address] May, [facility] [address] [id number] [address] [place] [address], [place] [address] Apr, [facility] [address] [id number] [address] [place] [address], [place] [address] 16 Apr, 2011 [facility] [address] [id number] [address] [place] [address], [place] [address] Mar, [facility] [address] [id number] [address] [place] [address], [place] [address] Mar, [facility] [address] [id number] [address] [place] [address], [place] [address] 19 Feb, 2011 [facility] [address] [id number] [address] [place] [address], [place] [address] 15 Feb, 2011 [facility] [address] [id number] [address] [place] [address], [place] [address] Feb, [facility] [address] [id number] [address] [place] [address], [place] [address] 13 Feb, 2011 [facility] [address] [id number] [address] [place] [address], [place] [address] Jan, [facility] [address] [id number] [address] [place] [address], [place] [address] 17 Dec, 2010 [facility] [address] [id number] [address] [place] [address], [place] [address] 08 Feb, 2010 [facility] [address] [id number] [address] [place] [address], [place] [address] Feb, [facility] [address] [id number] [address] [place] [address], [place] [address] Feb, [facility] [address] [id number] [address] [place] [address], [place] [address] Feb, [facility] [address] [id number] [address] [place] [address], [place] [address] Dec, [facility] [address] [id number] [address] [place] [id number] Dec, [facility] [address] [id number] [address] [place] [id number] Oct, [facility] [address] [id number] [address] [place] [address] Jun, [facility] [address] [id number] [address] [place] [id number] Feb, [facility] [address] [id number] [address] [place] [id number] Feb, [facility] [address] [id number] [address] [place] [id number] Feb, [facility] [address] [facility] [id number] [address] [place] [id number] Dec, IMMUNIZATIONS No Known Immunizations SOCIAL HISTORY [...]
--- OUTSIDE RECORDS SUMMARY | 2019-10-19 12:31 | XMS REPORT ---
Author Author KIANAMary Jane Organization [facility] Address [address] [place] [address] Care Team Providers Care Boom Stick Man Name Role Phone ASHLEY BRUNO Unavailable PROBLEMS Type Condition ICD9-CM Code UOK13-BM Code Onset Dates Condition S tatus SNOMED Code Problem Thyroid follicular adenoma D34 Act phylicia 353410705 Problem History of DVT (deep vein thrombosis) Z86.718 Active 286443604 Problem Factor V Leiden D68.51 Active 3070 15214 Problem intermediate card tender (current) use of anticoagulants Z79.01 Active 301970514 Problem Hypertriglyceridemia E78.1 Active 879929599 Problem 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 Active 291374505 Problem Pelvic pain R10.2 Active 51894838 Problem Peripheral edema R60.9 Active 271 722841 Problem Moderate episode of recurrent major depressive disorder F33.1 Active 556799478 Problem Presence of IVC filter Z95.828 Active 525065998 Problem Vitamin D deficiency E55.9 Active 34815868 Problem Generalized anxiety disorder F41.1 A ctive 878174592 Problem Excessive daytime sleepiness G47.19 A ctive 365058667904 Problem Gastroesophageal reflux disease, esophagitis pre sence not specified K21.9 Active 273347538 Problem Thyroid nodule E04.1 Active 93287 5005 Problem Morbid obesity E66.01 Active 08140 6002 ALLERGIES No Information ENCOUNTERS Encounter Location Date Diagnosis [facility] [address] [facility] [id number] [address] [place] [phone] Nov, Thyroid nodule E04.1 [facility] [address] [facility] [id number] [address] [place] [phone] Oct, Syncope, unspecified syncope type R55 [facility] [address] [facility] [id number] [address] [place] [phone] Oct, Morbid obesity E66.01 [facility] [address] [id number] [address] [place] [phone] Oct, Hypertriglyceridemia E78.1 [facility] [address] [id number] [address] [place] [id number] Oct, [facility] [address] [facility] [id number] [address] [place] [phone] Oct, Hypertriglyceridemia E78.1 [facility] [address] [id number] [address] [place] [phone] Sep, Hypertriglyceridemia E78.1 a nd Vitamin D deficiency E55.9 [facility] [address] [id number] [address] [place] [phone] Sep, [facility] [address] [facility] [id number] [address] [place] [phone] Sep, Morbid obesity E66.01 ; Mode rate episode of recurrent major depressive disorder F33.1 ; Hypertriglyceridemia E78.1 and Vitamin D deficiency E55.9 [facility] [address] [id number] [address] [place] [id number] Aug, [facility] [address] [facility] [id number] [address] [place] [phone] July, [facility] [address] [facility] [id number] [address] [place] [phone] July, [facility] [address] [facility] [id number] [address] [place] [phone] Jun, [facility] [address] [id number] [address] [place] [phone] Jun, [facility] [address] [facility] [id number] [address] [place] [phone] Jun, Closed compression fracture of L3 lumbar vertebra with routine healing, subsequent encounter S32.030D and Drug-induced constipation K59.03 [facility] [address] [id number] [address] [place] [phone] Jun, [facility] [address] [facility] [id number] [address] [place] [phone] Jun, [facility] [address] [facility] [id number] [place] [phone] Apr, [facility] [address] [facility] [id number] [place] [phone] Apr, Morbid obesity E66.01 [facility] [address] [facility] [id number] [address] [place] [id number] 12 Apr, 2018 Morbid obesity E66.01 ; Hype rtriglyceridemia E78.1 ; Gastroesophageal reflux disease, esophagitis presence not specified K21.9 and Joint pain M25.50 [facility] [address] [place] [id number] [address] [place] [phone] Feb, [facility] [address] [phone] Feb, [facility] [address] [facility] [id number] [address] [place] [phone] Jan, Acute bacterial conjunctivit is H10.30 [facility] [address] [place] [id number] [address] [place] [id number] 08 Dec, 2017 [facility] [address] [place] [id number] [address] [place] [phone] 04 Dec, 2017 [facility] [id number] [place] [id number] 17 Nov, 2017 [facility] [address] [facility] [id number] [address] [place] [id number] 07 Nov, 2017 Obstructive sleep apnea G47. 33 ; Morbid obesity E66.01 and Gastroesophageal reflux disease, esophagitis presence not specified K21.9 [facility] [address] [id number] [address] [place] [id number] 06 Nov, 2017 Encounter for examination of eyes and vision without abnormal findings Z01.00 [facility] [address] [place] [id number] [address] [place] [phone] Oct, Thyroid nodule E04.1 and Scr eening for breast cancer Z12.31 [place] [address] [place] [id number] [place] [phone] Oct, History of DVT (deep vein th rombosis) Z86.718 ; Thyroid nodule E04.1 and Gastroesophageal reflux disease, esophagitis presence not specified K21.9 [place] [address] [address] Oct, [place] [address] [address] Sep, [place] [address] [address] Aug, [place] [address] [address] Aug, [place] [address] [address] Aug, Acute pain of left shoulder M25.512 and Thyroid nodule E04.1 [place] [address] [address] July, Superior glenoid labrum lesi on of left shoulder, subsequent encounter S43.432D [place] [address] [address] Jun, History of DVT (deep vein th rombosis) Z86.718 [place] [address] [place] [id number] [address] [place] [phone] Jun, History of DVT (deep vein th rombosis) Z86.718 [place] [address] [place] [id number] [place] [phone] Jun, Impingement syndrome, should er, left M75.42 [place] [address] [address] May, Subacromial bursitis of left shoulder joint M75.52 [place] [address] [facility] [id number] [address] [place] [phone] May, [facility] [address] [facility] [id number] [address] [place] [phone] May, Hypertriglyceridemia E78.1 ; intermediate card tender (current) use of anticoagulants Z79.01 and Excessive daytime sleepiness G47.19 [place] [address] [facility] [id number] [address] [place] [address] May, History of DVT (deep vein th rombosis) Z86.718 ; Generalized anxiety disorder F41.1 ; Hypertriglyceridemia E78.1 ; intermediate card tender (current) use of anticoagulants Z79.01 ; Subacromial bursitis of left shoulder joint M75.52 and Excessive daytime sleepiness G47.19 [place] [address] [facility] [id number] [address] [place] [id number] May, [place] [address] [facility] [id number] [address] [place] [phone] May, intermediate card tender (current) use of a nticoagulants Z79.01 [place] [address] [facility] [id number] [address] [place] [phone] Apr, [facility] (current) use of a nticoagulants Z79.01 [place] [address] [facility] [id number] [address] [place] [address] Apr, intermediate card tender (current) use of a nticoagulants Z79.01 [place] [address] [id number] [address] [place] [id number] Apr, intermediate card tender (current) use of a nticoagulants Z79.01 [place] [address] [facility] [id number] [address] [place] [phone] Apr, [place] [address] [facility] [id number] [address] [place] [phone] Apr, [facility] (current) use of a nticoagulants Z79.01 [facility] [address] [id number] [address] [place] [phone] 13 Apr, 2017 intermediate card tender (current) use of a nticoagulants Z79.01 [facility] [address] [id number] [address] [place] [id number] Apr, intermediate card tender (current) use of a nticoagulants Z79.01 [facility] [address] [id number] [address] [place] [phone] Apr, [facility] (current) use of a nticoagulants Z79.01 [facility] [address] [id number] [address] [place] [phone] Apr, intermediate card tender (current) use of a nticoagulants Z79.01 [facility] [address] [id number] [address] [place] [id number] Apr, [facility] (current) use of a nticoagulants Z79.01 [facility] [address] [id number] [address] [place] [phone] Mar, [facility] (current) use of a nticoagulants Z79.01 [facility] [address] [id number] [address] [place] [id number] Mar, [facility] [address] [id number] [address] [place] [id number] Mar, [facility] (current) use of a nticoagulants Z79.01 [facility] [address] [id number] [address] [place] [address] [id number] Jan, Dental examination Z01.20 [facility] [address] [id number] [address] [place] [address] [id number] Jan, [facility] [address] [id number] [address] [place] [phone] Jan, [facility] (current) use of a nticoagulants Z79.01 [facility] [address] [id number] [address] [place] [id number] 17 Jan, 2017 History of DVT (deep vein th rombosis) Z86.718 [facility] [address] [id number] [address] [place] [phone] Jan, Generalized anxiety disorder F41.1 and Peripheral edema R60.9 [facility] [address] [id number] [address] [place] [phone] Nov, History of DVT (deep vein th rombosis) Z86.718 [place] [address] [id number] [address] [place] [id number] Nov, intermediate card tender (current) use of a nticoagulants Z79.01 [facility] [address] [id number] [address] [place] [id number] Nov, Acute non-recurrent maxillar y sinusitis J01.00 [facility] [address] [id number] [address] [place] [phone] Oct, [facility] (current) use of a nticoagulants Z79.01 [place] [address] [id number] [address] [place] [id number] Oct, Personal history of venous t hrombosis and embolism Z86.718 [place] [address] [id number] [address] [place] [phone] Sep, [facility] [address] [id number] [address] [place] [phone] Sep, Personal history of venous t hrombosis and embolism Z86.718 [facility] [address] [id number] [address] [place] [phone] Sep, [facility] (current) use of a nticoagulants Z79.01 [facility] [address] [id number] [address] [place] [id number] 11 Walter, 2017 intermediate card tender (current) use of a nticoagulants Z79.01 [place] [address] [facility] [id number] [address] [place] [phone] Sep, Generalized anxiety disorder F41.1 and History of DVT (deep vein thrombosis) Z86.718 [place] [address] [facility] [id number] [address] [place] [phone] Aug, History of DVT (deep vein th rombosis) Z86.718 ; Generalized anxiety disorder F41.1 ; intermediate card tender (current) use of anticoagulants Z79.01 ; Pelvic pain R10.2 ; Hypertriglyceridemia E78.1 ; Excessive daytime sleepiness G47.19 ; Colon cancer screening Z12.11 ; Screening for breast cancer Z12.39 ; Peripheral edema R60.9 and Gastroesophageal reflux disease, esophagitis presence not specified K21.9 [place] [address] [place] [id number] [address] [place] [phone] Aug, [place] [address] [facility] [id number] [address] [place] [phone] July, [place] [address] [place] [id number] [address] [place] [id number] July, History of DVT (deep vein th rombosis) Z86.718 [place] [address] [facility] [id number] [address] [place] [phone] Jun, Generalized anxiety disorder F41.1 [place] [address] [facility] [id number] [address] [place] [phone] Jun, History of DVT (deep vein th rombosis) Z86.718 [place] [address] [facility] [id number] [address] [place] [phone] Jun, History of DVT (deep vein th rombosis) Z86.718 [place] [address] [facility] [id number] [address] [place] [address] Jun, History of DVT (deep vein th rombosis) Z86.718 [place] [address] [place] [id number] [address] [place] [phone] Jun, History of DVT (deep vein th rombosis) Z86.718 [facility] [address] [facility] [id number] [address] [place] [phone] May, History of DVT (deep vein th rombosis) Z86.718 [facility] [address] [facility] [id number] [address] [place] [phone] May, intermediate card tender (current) use of a nticoagulants Z79.01 [place] [address] [facility] [id number] [address] [place] [phone] May, intermediate card tender (current) use of a nticoagulants Z79.01 [place] [address] [facility] [id number] [address] [place] [id number] May, History of DVT (deep vein th rombosis) Z86.718 [facility] [address] [facility] [id number] [address] [place] [phone] Apr, Bacterial conjunctivitis of left eye H10.9 and H/O motion sickness Z87.898 [place] [address] [facility] [id number] [address] [place] [phone] 24 Apr, 2016 History of DVT (deep vein th rombosis) Z86.718 [place] [address] [facility] [id number] [address] [place] [address] Apr, History of DVT (deep vein th rombosis) Z86.718 [facility] [address] [facility] [id number] [address] [place] [id number] 15 Apr, 2016 History of DVT (deep vein th rombosis) Z86.718 [facility] [address] [place] [id number] [address] [place] [id number] 14 Apr, 2016 intermediate card tender (current) use of a nticoagulants Z79.01 [place] [address] [place] [id number] [address] [place] [id number] Mar, [facility] [address] [id number] [address] [place] [id number] Mar, intermediate card tender (current) use of a nticoagulants Z79.01 [facility] [address] [id number] [address] [place] [id number] Mar, Hypertriglyceridemia E78.1 a nd intermediate card tender (current) use of anticoagulants Z79.01 [facility] [address] [id number] [address] [place] [phone] Feb, [facility] (current) use of a nticoagulants Z79.01 [facility] [address] [id number] [address] [place] [id number] Feb, intermediate card tender (current) use of a nticoagulants Z79.01 [facility] [address] [id number] [address] [place] [phone] Feb, [facility] (current) use of a nticoagulants Z79.01 [facility] [address] [id number] [address] [place] [id number] Dec, [facility] [address] [id number] [address] [place] [phone] Nov, [facility] [address] [id number] [address] [place] [phone] Nov, History of DVT (deep vein th rombosis) Z86.718 ; Tremulousness R25.1 ; Generalized anxiety disorder F41.1 ; Peripheral edema R60.9 and Hypertriglyceridemia E78.1 [facility] [address] [id number] [address] [place] [phone] Oct, History of DVT (deep vein th rombosis) Z86.718 [facility] [address] [id number] [address] [place] [phone] Oct, [facility] [address] [id number] [address] [place] [phone] Sep, History of DVT (deep vein th rombosis) Z86.718 [facility] [address] [id number] [address] [place] [phone] Sep, [facility] (current) use of a nticoagulants Z79.01 [facility] [address] [id number] [address] [place] [phone] July, [place] [address] [id number] [address] [place] [id number] July, [facility] (current) use of a nticoagulants Z79.01 [place] [address] [id number] [address] [place] [phone] July, intermediate card tender (current) use of a nticoagulants Z79.01 [place] [address] [id number] [address] [place] [phone] Jun, [facility] (current) use of a nticoagulants Z79.01 [facility] [address] [id number] [address] [place] [id number] Jun, Coccyx pain M53.3 ; Encounte r for therapeutic drug level monitoring Z51.81 and intermediate card tender current use 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.01 [place] [address] [id number] [address] [place] [phone] May, Abnormal mammogram R92.8 [facility] [address] [id number] [address] [place] [phone] May, [facility] [id number] [address] [place] [phone] May, Acute vaginitis N76.0 and En counter for other screening for malignant neoplasm of breast Z12.39 [place] [address] [id number] [address] [place] [id number] Apr, [place] [address] [id number] [address] [place] [phone] Apr, [facility] [address] [id number] [address] [place] [phone] Apr, Peripheral edema R60.9 [facility] [address] [facility] [id number] [address] [place] [phone] Apr, [facility] (current) use of a nticoagulants Z79.01 [facility] [address] [id number] [address] [place] [phone] Apr, Peripheral edema R60.9 and L jose martin term (current) 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 Z79.01 [place] [address] [id number] [address] [place] [phone] Apr, intermediate card tender (current) use of a nticoagulants Z79.01 [place] [address] [id number] [address] [place] [phone] Apr, [facility] [address] [facility] [id number] [address] [place] [phone] Apr, [facility] (current) use of a nticoagulants Z79.01 [place] [address] [id number] [address] [place] [phone] Apr, Peripheral edema R60.9 [place] [address] [facility] [id number] [address] [place] [id number] Mar, intermediate card tender (current) use of a nticoagulants Z79.01 [facility] [address] [id number] [address] [place] [phone] Mar, intermediate card tender (current) use of a nticoagulants Z79.01 and Hypertriglyceridemia E78.1 [place] [address] [facility] [id number] [address] [place] [id number] Mar, [facility] (current) use of a nticoagulants Z79.01 [place] [address] [facility] [id number] [address] [place] [phone] Mar, intermediate card tender (current) use of a nticoagulants Z79.01 [place] [address] [id number] [address] [place] [phone] Mar, [place] [address] [id number] [address] [place] [phone] Mar, [facility] (current) use of a nticoagulants Z79.01 ; Hypertriglyceridemia E78.1 ; Personal history of venous thrombosis and embolism Z86.718 and Lump R22.9 [place] [address] [id number] [address] [place] [phone] Mar, Personal history of venous t hrombosis and embolism Z86.718 [place] [address] [id number] [address] [place] [phone] Mar, Personal history of venous t hrombosis and embolism Z86.718 [place] [address] [id number] [address] [place] [phone] Mar, [place] [address] [id number] [address] [place] [phone] Dec, Personal history of venous t hrombosis and embolism Z86.718 [place] [address] [id number] [address] [place] [phone] Dec, Personal history of venous t hrombosis and embolism V12.51 [place] [address] [id number] [address] [place] [id number] 28 Nov, 2014 Personal history of venous t hrombosis and embolism V12.51 [place] [address] [id number] [address] [place] [phone] 25 Nov, 2014 Personal history of venous t hrombosis and embolism V12.51 [place] [address] [id number] [address] [place] [phone] 17 Nov, 2014 Personal history of venous t hrombosis and embolism V12.51 [place] [address] [id number] [address] [place] [id number] Nov, Personal history of venous t hrombosis and embolism V12.51 [facility] [address] [id number] [address] [place] [phone] Nov, [facility] [address] [id number] [address] [place] [phone] Oct, Dysuria 788.1 [facility] [address] [id number] [address] [place] [phone] Oct, Personal history of venous t hrombosis and embolism V12.51 [facility] [address] [id number] [address] [place] [id number] Oct, [facility] [address] [id number] [address] [place] [phone] Oct, Personal history of venous t hrombosis and embolism V12.51 [facility] [address] [id number] [address] [place] [id number] Sep, Personal history of venous t hrombosis and embolism V12.51 [facility] [address] [id number] [address] [place] [phone] Sep, Personal history of venous t hrombosis and embolism V12.51 [facility] [address] [id number] [address] [place] [phone] Aug, Personal history of venous t hrombosis and embolism V12.51 [facility] [address] [id number] [address] [place] [phone] Aug, Personal history of venous t hrombosis and embolism V12.51 [facility] [address] [id number] [address] [place] [id number] Aug, Personal history of venous t hrombosis and embolism V12.51 [facility] [facility] [address] [id number] [address] [place] [address] July, Generalized anxiety disorder 300.02 ; Abdominal pain, left lower quadrant 789.04 and Personal history of venous thrombosis and embolism V12.51 [facility] [address] [id number] [address] [place] [address], [place] [address] 14 Jun, 2014 [facility] [address] [id number] [address] [place] [address], [place] [address] Jun, [facility] [address] [id number] [address] [place] [address], [place] [address] May, [facility] [address] [id number] [address] [place] [address], [place] [address] May, [facility] [address] [id number] [address] [place] [address], [place] [address] May, [facility] [address] [id number] [address] [place] [address], [place] [address] May, [facility] [address] [id number] [address] [place] [address], [place] [address] May, [facility] [address] [id number] [address] [place] [address], [place] [address] May, [facility] [address] [id number] [address] [place] [address], [place] [address] May, [facility] [address] [id number] [address] [place] [address], [place] [address] May, [facility] [address] [id number] [address] [place] [address], [place] [address] Apr, [facility] [address] [id number] [address] [place] [address], [place] [address] Apr, [facility] [address] [id number] [address] [place] [address], [place] [address] Apr, [facility] [address] [id number] [address] [place] [address], [place] [address] Apr, [facility] [address] [id number] [address] [place] [address] Apr, [facility] [address] [id number] [address] [place] [address], [place] [address] Mar, [facility] [address] [id number] [address] [place] [address], [place] [address] Mar, [facility] [address] [id number] [address] [place] [address], [place] [address] Mar, [facility] [address] [id number] [address] [place] [address], [place] [address] Mar, [facility] [address] [id number] [address] [place] [address], [place] [address] Mar, [facility] [address] [id number] [address] [place] [address], [place] [address] Mar, [facility] [address] [id number] [address] [place] [address], [place] [address] Feb, [facility] [address] [id number] [address] [place] [address], [place] [address] Feb, [facility] [address] [id number] [address] [place] [address], [place] [address] Feb, [facility] [address] [id number] [address] [place] [address], [place] [address] Feb, [facility] [address] [id number] [address] [place] [address], [place] [address] Feb, [facility] [address] [id number] [address] [place] [address], [place] [address] Feb, [facility] [address] [id number] [address] [place] [address], [place] [address] Feb, [facility] [address] [id number] [address] [place] [address], [place] [address] Feb, [facility] [address] [id number] [address] [place] [address], [place] [address] Feb, [facility] [address] [id number] [address] [place] [address], [place] [address] Feb, [facility] [address] [id number] [address] [place] [address], [place] [address] Jan, [facility] [address] [id number] [address] [place] [address], [place] [address] Jan, [facility] [address] [id number] [address] [place] [address], [place] [address] Jan, [facility] [address] [id number] [address] [place] [address], [place] [address] Jan, [facility] [address] [id number] [address] [place] [address], [place] [address] Jan, [facility] [address] [id number] [address] [place] [address], [place] [address] Jan, [facility] [address] [id number] [address] [place] [address], [place] [address] Jan, [facility] [address] [id number] [address] [place] [address], [place] [address] Jan, [facility] [address] [id number] [address] [place] [address], [place] [address] Jan, [facility] [address] [id number] [address] [place] [address], [place] [address] Jan, [facility] [address] [id number] [address] [place] [address], [place] [address] Dec, [facility] [address] [id number] [address] [place] [address], [place] [address] Dec, [facility] [address] [id number] [address] [place] [address], [place] [address] Dec, [facility] [address] [id number] [address] [place] [address], [place] [address] Dec, [facility] [address] [id number] [address] [place] [address], [place] [address] Dec, [facility] [address] [id number] [address] [place] [address], [place] [address] Dec, [facility] [address] [id number] [address] [place] [address], [place] [address] Dec, [facility] [address] [id number] [address] [place] [address], [place] [address] Dec, [facility] [address] [id number] [address] [place] [address], [place] [address] Dec, [facility] [address] [id number] [address] [place] [address], [place] [address] Dec, [facility] [address] [id number] [address] [place] [address], [place] [address] Dec, [facility] [address] [id number] [address] [place] [address], [place] [address] Dec, [facility] [address] [id number] [address] [place] [address], [place] [address] Dec, [facility] [address] [id number] [address] [place] [address], [place] [address] Dec, [facility] [address] [id number] [address] [place] [address], [place] [address] Dec, [facility] [address] [id number] [address] [place] [address], [place] [address] 30 Nov, 2013 [facility] [address] [id number] [address] [place] [address], [place] [address] 30 Nov, 2013 [facility] [address] [id number] [address] [place] [address], [place] [address] Nov, 2013 [facility] [address] [id number] [address] [place] [address], [place] [address] 26 Nov, 2013 [facility] [address] [id number] [address] [place] [address], [place] [address] 24 Nov, 2013 [facility] [address] [id number] [address] [place] [address], [place] [address] 24 Nov, 2013 [facility] [address] [id number] [facility] [place] [address] 23 Nov, 2013 [facility] [address] [id number] [address] [place] [address], [place] [address] 23 Nov, 2013 [facility] [address] [id number] [address] [place] [address], [place] [address] 18 Nov, 2013 [facility] [address] [id number] [address] [place] [address], [place] [address] 18 Nov, 2013 [facility] [address] [id number] [address] [place] [address], [place] [address] 17 Nov, 2013 [facility] [address] [id number] [address] [place] [address], [place] [address] 17 Nov, 2013 [facility] [address] [id number] [address] [place] [address], [place] [address] 11 Nov, 2013 [facility] [address] [id number] [address] [place] [address], [place] [address] 11 Nov, 2013 [facility] [address] [id number] [address] [place] [address], [place] [address] 10 Nov, 2013 [facility] [address] [id number] [address] [place] [address], [place] [address] 10 Nov, 2013 [facility] [address] [id number] [address] [place] [address], [place] [address] 08 Nov, 2013 [facility] [address] [id number] [address] [place] [address], [place] [address] 08 Nov, 2013 [facility] [address] [id number] [address] [place] [address], [place] [address] Sep, [facility] [address] [id number] [address] [place] [address], [place] [address] Sep, 2013 [facility] [address] [id number] [address] [place] [address], [place] [address] 11 Sep, 2013 [facility] [address] [id number] [address] [place] [address], [place] [address] Sep, [facility] [address] [id number] [facility] [place] [address] Sep, [facility] [address] [id number] [address] [place] [address], [place] [address] Sep, [facility] [address] [id number] [address] [place] [address], [place] [address] Aug, [facility] [address] [id number] [address] [place] [address], [place] [address] Aug, [facility] [address] [id number] [address] [place] [address], [place] [address] Aug, [facility] [address] [id number] [address] [place] [address], [place] [address] Aug, [facility] [address] [id number] [address] [place] [address], [place] [address] Aug, [facility] [address] [id number] [address] [place] [address], [place] [address] Aug, [facility] [address] [id number] [address] [place] [address], [place] [address] Aug, [facility] [address] [id number] [address] [place] [address], [place] [address] Aug, [facility] [address] [id number] [address] [place] [address], [place] [address] Aug, [facility] [address] [id number] [address] [place] [address], [place] [address] Aug, [facility] [address] [id number] [address] [place] [address], [place] [address] Aug, [facility] [address] [id number] [address] [place] [address], [place] [address] July, [facility] [address] [id number] [address] [place] [address], [place] [address] July, [facility] [address] [id number] [facility] [place] [address] Jun, [facility] [address] [id number] [facility] [place] [address] Jun, [facility] [address] [id number] [address] [place] [address], [place] [address] Jun, [facility] [address] [id number] [address] [place] [address], [place] [address] Jun, [facility] [address] [id number] [address] [place] [address], [place] [address] Jun, [facility] [address] [id number] [address] [place] [address], [place] [address] Jun, [facility] [address] [id number] [address] [place] [address], [place] [address] Jun, [facility] [address] [id number] [address] [place] [address], [place] [address] Jun, [facility] [address] [id number] [address] [place] [address], [place] [address] Jun, [facility] [address] [id number] [address] [place] [address], [place] [address] Jun, [facility] [address] [id number] [address] [place] [address], [place] [address] Jun, [facility] [address] [id number] [address] [place] [address], [place] [address] Jun, [facility] [address] [id number] [address] [place] [address], [place] [address] May, [facility] [address] [id number] [address] [place] [address], [place] [address] May, [facility] [address] [id number] [address] [place] [address], [place] [address] May, [facility] [address] [id number] [address] [place] [address], [place] [address] May, [facility] [address] [id number] [facility] [place] [address] May, [facility] [address] [id number] [address] [place] [address], [place] [address] May, [facility] [address] [id number] [address] [place] [address], [place] [address] May, [facility] [address] [id number] [address] [place] [address], [place] [address] May, [facility] [address] [id number] [address] [place] [address], [place] [address] May, [facility] [address] [id number] [address] [place] [address], [place] [address] May, [facility] [address] [id number] [address] [place] [address], [place] [address] May, [facility] [address] [id number] [address] [place] [address], [place] [address] May, [facility] [address] [id number] [address] [place] [address], [place] [address] Apr, [facility] [address] [id number] [address] [place] [address], [place] [address] Apr, [facility] [address] [id number] [address] [place] [address], [place] [address] Apr, [facility] [address] [id number] [address] [place] [address], [place] [address] Apr, [facility] [address] [id number] [address] [place] [address], [place] [address] Apr, [facility] [address] [id number] [address] [place] [address], [place] [address] Apr, [facility] [address] [id number] [address] [place] [address], [place] [address] Apr, [facility] [address] [id number] [address] [place] [address], [place] [address] Apr, [facility] [address] [id number] [address] [place] [address], [place] [address] Apr, [facility] [address] [id number] [address] [place] [address], [place] [address] Apr, [facility] [address] [id number] [address] [place] [address], [place] [address] Apr, [facility] [address] [id number] [address] [place] [address], [place] [address] Apr, [facility] [address] [id number] [address] [place] [address], [place] [address] Apr, [facility] [address] [id number] [address] [place] [address], [place] [address] Apr, [facility] [address] [id number] [address] [place] [address], [place] [address] Apr, [facility] [address] [id number] [address] [place] [address], [place] [address] Apr, [facility] [address] [id number] [address] [place] [address], [place] [address] Apr, [facility] [address] [id number] [address] [place] [address], [place] [address] Jan, [facility] [address] [id number] [address] [place] [address], [place] [address] 13 Jan, 2013 [facility] [address] [id number] [address] [place] [address], [place] [address] 08 Jan, 2013 [facility] [address] [id number] [address] [place] [address], [place] [address] 07 Jan, 2013 [facility] [address] [id number] [address] [place] [address], [place] [address] 07 Jan, 2013 [facility] [address] [id number] [address] [place] [address] [place] [address] 07 Jan, 2013 [facility] [address] [id number] [address] [place] [address], [place] [address] Jan, [facility] [address] [id number] [address] [place] [address], [place] [address] Dec, [facility] [address] [id number] [address] [place] [address], [place] [address] Dec, [facility] [address] [id number] [address] [place] [address], [place] [address] Dec, [facility] [address] [id number] [address] [place] [address], [place] [address] Nov, [facility] [address] [id number] [address] [place] [address], [place] [address] Nov, [facility] [address] [id number] [address] [place] [address], [place] [address] 05 Nov, 2012 [facility] [address] [id number] [address] [place] [address], [place] [address] Nov, [facility] [address] [id number] [address] [place] [address], [place] [address] Oct, [facility] [address] [id number] [address] [place] [address], [place] [address] Oct, [facility] [address] [id number] [address] [place] [address], [place] [address] Oct, [facility] [address] [id number] [address] [place] [address], [place] [address] Oct, [facility] [address] [id number] [address] [place] [address], [place] [address] Oct, [facility] [address] [id number] [address] [place] [address], [place] [address] Sep, [facility] [address] [id number] [address] [place] [address], [place] [address] Sep, [facility] [address] [id number] [address] [place] [address], [place] [address] Sep, [facility] [address] [id number] [address] [place] [address], [place] [address] Sep, [facility] [address] [id number] [address] [place] [address], [place] [address] Sep, [facility] [address] [id number] [address] [place] [address], [place] [address] Sep, [facility] [address] [id number] [address] [place] [address], [place] [address] Sep, [facility] [address] [id number] [address] [place] [address], [place] [address] Aug, [facility] [address] [id number] [address] [place] [address], [place] [address] Aug, [facility] [address] [id number] [address] [place] [address], [place] [address] July, [facility] [address] [id number] [address] [place] [address], [place] [address] Jun, [facility] [address] [id number] [address] [place] [address], [place] [address] Jun, [facility] [address] [id number] [address] [place] [address], [place] [address] Jun, [facility] [address] [id number] [address] [place] [address], [place] [address] Apr, [facility] [address] [id number] [address] [place] [address], [place] [address] Apr, [facility] [address] [id number] [address] [place] [address], [place] [address] Apr, [facility] [address] [id number] [address] [place] [address], [place] [address] Mar, [facility] [address] [id number] [address] [place] [address], [place] [address] 24 Mar, 2012 [facility] [address] [id number] [address] [place] [address] [address] 2012 [facility] [address] [id number] [address] [place] [address], [place] [address] 09 Mar, 2012 [facility] [address] [id number] [address] [place] [address], [place] [address] 07 Mar, 2012 [facility] [address] [id number] [address] [place] [address], [place] [address] 14 Feb, 2012 [facility] [address] [id number] [address] [place] [address], [place] [address] 14 Feb, 2012 [facility] [address] [id number] [address] [place] [address], [place] [address] 13 Jan, 2012 [facility] [address] [id number] [address] [place] [address], [place] [address] 13 Jan, 2012 [facility] [address] [id number] [address] [place] [address], [place] [address] 13 Jan, 2012 [facility] [address] [id number] [address] [place] [address], [place] [address] 13 Jan, 2012 [facility] [address] [id number] [address] [place] [address], [place] [address] 07 Jan, 2012 [facility] [address] [id number] [address] [place] [address], [place] [address] 07 Jan, 2012 [facility] [address] [id number] [address] [place] [address], [place] [address] Jan, [facility] [address] [id number] [address] [place] [address], [place] [address] Dec, [facility] [address] [id number] [address] [place] [address], [place] [address] Dec, [facility] [address] [id number] [address] [place] [address], [place] [address] 30 Dec, 2011 [facility] [address] [id number] [address] [place] [address], [place] [address] Dec, [facility] [address] [id number] [address] [place] [address], [place] [address] Dec, [facility] [address] [id number] [address] [place] [address], [place] [address] Dec, [facility] [address] [id number] [address] [place] [address], [place] [address] Dec, [facility] [address] [id number] [address] [place] [address], [place] [address] Dec, [facility] [address] [id number] [address] [place] [address], [place] [address] Dec, [facility] [address] [id number] [address] [place] [address], [place] [address] Dec, [facility] [address] [id number] [address] [place] [address], [place] [address] Oct, [facility] [address] [id number] [address] [place] [address], [place] [address] Oct, [facility] [address] [id number] [address] [place] [address], [place] [address] Aug, [facility] [address] [id number] [address] [place] [address], [place] [address] Aug, [facility] [address] [id number] [address] [place] [address], [place] [address] July, [facility] [address] [id number] [address] [place] [address], [place] [address] Jun, [facility] [address] [id number] [address] [place] [address], [place] [address] Jun, [facility] [address] [id number] [address] [place] [address], [place] [address] May, [facility] [address] [id number] [address] [place] [address], [place] [address] Apr, [facility] [address] [id number] [address] [place] [address], [place] [address] 16 Apr, 2011 [facility] [address] [id number] [address] [place] [address], [place] [address] 19 Mar, 2011 [facility] [address] [id number] [address] [place] [address], [place] [address] 16 Mar, 2011 [facility] [address] [id number] [address] [place] [address], [place] [address] 19 Feb, 2011 [facility] [address] [id number] [address] [place] [address], [place] [id number] 15 Feb, 2011 [facility] [address] [id number] [address] [place] [address], [place] [phone] 13 Feb, 2011 [facility] [address] [id number] [address] [place] [address], [place] [phone] 13 Feb, 2011 [facility] [address] [id number] [address] [place] [address], [place] [phone] Jan, [facility] [address] [id number] [address] [place] [address], [place] [phone] 17 Dec, 2010 [facility] [address] [id number] [address] [place] [id number] 08 Feb, 2010 [facility] [address] [id number] [address] [place] [address], [place] [address] 02 Feb, 2010 [facility] [address] [id number] [address] [place] [phone] Feb, [facility] [address] [id number] [address] [place] [address], [place] [address] Feb, [facility] [address] [id number] [address] [place] [id number] 15 Dec, 2009 [facility] [address] [id number] [address] [place] [address], [place] [id number] 15 Dec, 2009 [facility] [address] [id number] [address] [place] [phone] Oct, [facility] [address] [facility] [id number] [address] [place] [phone] Jun, [facility] [address] [facility] [id number] [address] [place] [phone] Feb, [facility] [address] [facility] [id number] [address] [place] [phone] Feb, [facility] [address] [facility] [id number] [address] [place] [phone] Feb, [facility] [address] [facility] [id number] [address] [place] [phone] Dec, IMMUNIZATIONS No Known Immunizations SOCIAL HISTORY Never Assessed REASON FOR VISIT PLAN OF CARE VITAL SIGNS MEDICATIONS Unknown Medications RESULTS No Results PROCEDURES Procedure Date Ordered Result Body Site PROTHROMBIN TIME Jan 05, 2014 VENIPUNCT, ROUTINE* Jan 05, 2014 INSTRUCTIONS MEDICATIONS ADMINISTERED No Known Medications MEDICAL (GENERAL) HISTORY Type Description Date Medical History obesity Medical History Hematologic disorder factor clotting [place] Medical History DVT's Medical History Torn Rotator Cuff, repaired 09/23/17 Surgical History Lap Band 10/2012 Surgical History section 1985, 1987 Surgical History cholecystectomy Surgical History [place] Filter 06/2009 Surgical History Left leg exploratory surgery r/t clot Surgical History left shoulder surgery 09/14/17 Surgical History lap band removed 12/2017 Surgical History gastic sleeve 01/2018 Surgical History Back surgery 2019 Hospitalization History Ruptured Ovarian Cyst with abd bleed ing 11/2009 Hospitalization History Broken Back 06/2018
--- OUTSIDE RECORDS SUMMARY | 2019-10-19 12:31 | XMS REPORT ---
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 Active 743728002 Problem Hypertriglyceridemia E78.1 Active 436392625 Problem 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 Active 840361122 Problem Pelvic pain R10.2 Active 46283847 Problem Peripheral edema R60.9 Active 271 158831 Problem Moderate episode of recurrent major depressive disorder F33.1 Active 756840489 Problem Presence of IVC filter Z95.828 Active 549953331 Problem Vitamin D deficiency E55.9 Active 87733560 Problem Generalized anxiety disorder F41.1 A ctive 030895602 Problem Excessive daytime sleepiness G47.19 A ctive 589648905868 Problem Gastroesophageal reflux disease, esophagitis pre sence not specified K21.9 Active 737949109 Problem Thyroid nodule E04.1 Active 64196 5005 Problem Morbid obesity E66.01 Active 70285 6002 ALLERGIES No Information ENCOUNTERS Encounter Location Date Diagnosis [facility] [address] [facility] [id number] [address] [place] [address] Nov, Thyroid nodule E04.1 [facility] [address] [facility] [id number] [address] [place] [phone] Oct, Syncope, unspecified syncope type R55 [facility] [address] [facility] [id number] [address] [place] [phone] Oct, Morbid obesity E66.01 [facility] [address] [id number] [address] [place] [phone] Oct, Hypertriglyceridemia E78.1 [facility] [address] [id number] [address] [place] [phone] Oct, [facility] [address] [facility] [id number] [address] [place] [phone] Oct, Hypertriglyceridemia E78.1 [facility] [address] [id number] [address] [place] [phone] Sep, Hypertriglyceridemia E78.1 a nd Vitamin D deficiency E55.9 [facility] [address] [id number] [address] [place] [phone] Sep, [facility] [address] [facility] [id number] [address] [place] [phone] Sep, Morbid obesity E66.01 ; Mode rate episode of recurrent major depressive disorder F33.1 ; Hypertriglyceridemia E78.1 and Vitamin D deficiency E55.9 [facility] [address] [id number] [address] [place] [phone] Aug, [facility] [address] [facility] [id number] [address] [place] [phone] July, [facility] [address] [facility] [id number] [address] [place] [phone] July, [facility] [address] [facility] [id number] [address] [place] [phone] Jun, [facility] [address] [id number] [address] [place] [phone] Jun, [facility] [address] [facility] [id number] [address] [place] [phone] Jun, Closed compression fracture of L3 lumbar vertebra with routine healing, subsequent encounter S32.030D and Drug-induced constipation K59.03 [facility] [address] [id number] [address] [place] [phone] Jun, [facility] [address] [facility] [id number] [address] [place] [phone] Jun, [facility] [address] [facility] [id number] [place] [phone] Apr, [facility] [address] [facility] [id number] [place] [phone] Apr, Morbid obesity E66.01 [facility] [address] [facility] [id number] [address] [place] [phone] 12 Apr, 2018 Morbid obesity E66.01 ; Hype rtriglyceridemia E78.1 ; Gastroesophageal reflux disease, esophagitis presence not specified K21.9 and Joint pain M25.50 [facility] [address] [place] [id number] [address] [place] [phone] Feb, [facility] [address] [phone] Feb, [facility] [address] [facility] [id number] [address] [place] [phone] Jan, Acute bacterial conjunctivit is H10.30 [facility] [address] [place] [id number] [address] [place] [phone] 08 Dec, 2017 [facility] [address] [place] [id number] [address] [place] [phone] 04 Dec, 2017 [facility] [id number] [place] [phone] 17 Nov, 2017 [facility] [address] [facility] [id number] [address] [place] [phone] 07 Nov, 2017 Obstructive sleep apnea G47. 33 ; Morbid obesity E66.01 and Gastroesophageal reflux disease, esophagitis presence not specified K21.9 [facility] [address] [id number] [address] [place] [id number] 06 Nov, 2017 Encounter for examination of eyes and vision without abnormal findings Z01.00 [facility] [address] [place] [id number] [address] [place] [address] Oct, Thyroid nodule E04.1 and Scr eening for breast cancer Z12.31 [place] [address] [place] [id number] [place] [address] Oct, History of DVT (deep vein th rombosis) Z86.718 ; Thyroid nodule E04.1 and Gastroesophageal reflux disease, esophagitis presence not specified K21.9 [place] [address] [address] Oct, [place] [address] [address] Sep, [place] [address] [address] Aug, [place] [address] [address] Aug, [place] [address] [address] Aug, Acute pain of left shoulder M25.512 and Thyroid nodule E04.1 [place] [address] [address] July, Superior glenoid labrum lesi on of left shoulder, subsequent encounter S43.432D [place] [address] [address] Jun, History of DVT (deep vein th rombosis) Z86.718 [place] [address] [place] [id number] [address] [place] [phone] Jun, History of DVT (deep vein th rombosis) Z86.718 [place] [address] [place] [id number] [place] [phone] Jun, Impingement syndrome, should er, left M75.42 [place] [address] [address] May, Subacromial bursitis of left shoulder joint M75.52 [place] [address] [facility] [id number] [address] [place] [phone] May, [facility] [address] [facility] [id number] [address] [place] [phone] May, Hypertriglyceridemia E78.1 ; 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 and Excessive daytime sleepiness G47.19 [place] [address] [facility] [id number] [address] [place] [phone] May, History of DVT (deep vein th rombosis) Z86.718 ; Generalized anxiety disorder F41.1 ; Hypertriglyceridemia E78.1 ; 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 ; Subacromial bursitis of left shoulder joint M75.52 and Excessive daytime sleepiness G47.19 [place] [address] [facility] [id number] [address] [place] [phone] May, [place] [address] [facility] [id number] [address] [place] [phone] May, computer terminal operator (current) use of a nticoagulants Z79.01 [place] [address] [facility] [id number] [address] [place] [phone] Apr, longterm (current) 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 Z79.01 [place] [address] [facility] [id number] [address] [place] [phone] Apr, computer terminal operator (current) use of a nticoagulants Z79.01 [place] [address] [id number] [address] [place] [phone] Apr, computer terminal operator (current) use of a nticoagulants Z79.01 [place] [address] [facility] [id number] [address] [place] [phone] Apr, [place] [address] [facility] [id number] [address] [place] [phone] Apr, longterm (current) 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 Z79.01 [facility] [address] [id number] [address] [place] [phone] 13 Apr, 2017 computer terminal operator (current) use of a nticoagulants Z79.01 [facility] [address] [id number] [address] [place] [phone] Apr, computer terminal operator (current) use of a nticoagulants Z79.01 [facility] [address] [id number] [address] [place] [phone] Apr, longterm (current) 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 Z79.01 [facility] [address] [id number] [address] [place] [phone] Apr, computer terminal operator (current) use of a nticoagulants Z79.01 [facility] [address] [id number] [address] [place] [address] Apr, longterm (current) 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 Z79.01 [facility] [address] [id number] [address] [place] [phone] Mar, longterm (current) 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 Z79.01 [facility] [address] [id number] [address] [place] [phone] Mar, [facility] [address] [id number] [address] [place] [phone] Mar, longterm (current) 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 Z79.01 [facility] [address] [id number] [address] [place] [id number] Jan, Dental examination Z01.20 [facility] [address] [id number] [address] [place] [address] [id number] Jan, [facility] [address] [id number] [address] [place] [phone] Jan, longterm (current) 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 Z79.01 [facility] [address] [id number] [address] [place] [phone] 17 Jan, 2017 History of DVT (deep vein th rombosis) Z86.718 [facility] [address] [id number] [address] [place] [phone] Jan, Generalized anxiety disorder F41.1 and Peripheral edema R60.9 [facility] [address] [id number] [address] [place] [phone] Nov, History of DVT (deep vein th rombosis) Z86.718 [place] [address] [id number] [address] [place] [phone] Nov, computer terminal operator (current) use of a nticoagulants Z79.01 [facility] [address] [id number] [address] [place] [address] Nov, Acute non-recurrent maxillar y sinusitis J01.00 [facility] [address] [id number] [address] [place] [phone] Oct, longterm (current) 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 Z79.01 [place] [address] [id number] [address] [place] [phone] Oct, Personal history of venous t hrombosis and embolism Z86.718 [place] [address] [id number] [address] [place] [phone] Sep, [facility] [address] [id number] [address] [place] [phone] Sep, Personal history of venous t hrombosis and embolism Z86.718 [facility] [address] [id number] [address] [place] [phone] Sep, longterm (current) 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 Z79.01 [facility] [address] [id number] [address] [place] [phone] 11 Walter, 2017 computer terminal operator (current) use of a nticoagulants Z79.01 [place] [address] [facility] [id number] [address] [place] [phone] Sep, Generalized anxiety disorder F41.1 and History of DVT (deep vein thrombosis) Z86.718 [place] [address] [facility] [id number] [address] [place] [address] Aug, History of DVT (deep vein th rombosis) Z86.718 ; Generalized anxiety disorder F41.1 ; 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 ; Pelvic pain R10.2 ; Hypertriglyceridemia E78.1 ; Excessive daytime sleepiness G47.19 ; Colon cancer screening Z12.11 ; Screening for breast cancer Z12.39 ; Peripheral edema R60.9 and Gastroesophageal reflux disease, esophagitis presence not specified K21.9 [place] [address] [place] [id number] [address] [place] [phone] Aug, [place] [address] [facility] [id number] [address] [place] [phone] July, [place] [address] [place] [id number] [address] [place] [phone] July, History of DVT (deep vein th rombosis) Z86.718 [place] [address] [facility] [id number] [address] [place] [phone] Jun, Generalized anxiety disorder F41.1 [place] [address] [facility] [id number] [address] [place] [phone] Jun, History of DVT (deep vein th rombosis) Z86.718 [place] [address] [facility] [id number] [address] [place] [address] Jun, History of DVT (deep vein th rombosis) Z86.718 [place] [address] [facility] [id number] [address] [place] [phone] Jun, History of DVT (deep vein th rombosis) Z86.718 [place] [address] [place] [id number] [address] [place] [phone] Jun, History of DVT (deep vein th rombosis) Z86.718 [facility] [address] [facility] [id number] [address] [place] [phone] May, History of DVT (deep vein th rombosis) Z86.718 [facility] [address] [facility] [id number] [address] [place] [phone] May, computer terminal operator (current) use of a nticoagulants Z79.01 [place] [address] [facility] [id number] [address] [place] [phone] May, computer terminal operator (current) use of a nticoagulants Z79.01 [place] [address] [facility] [id number] [address] [place] [address] May, History of DVT (deep vein th rombosis) Z86.718 [facility] [address] [facility] [id number] [address] [place] [address] Apr, Bacterial conjunctivitis of left eye H10.9 and H/O motion sickness Z87.898 [place] [address] [facility] [id number] [address] [place] [phone] 24 Apr, 2016 History of DVT (deep vein th rombosis) Z86.718 [place] [address] [facility] [id number] [address] [place] [phone] Apr, History of DVT (deep vein th rombosis) Z86.718 [facility] [address] [facility] [id number] [address] [place] [phone] 15 Apr, 2016 History of DVT (deep vein th rombosis) Z86.718 [facility] [address] [place] [id number] [address] [place] [phone] 14 Apr, 2016 computer terminal operator (current) use of a nticoagulants Z79.01 [place] [address] [place] [id number] [address] [place] [phone] Mar, [facility] [address] [id number] [address] [place] [phone] Mar, computer terminal operator (current) use of a nticoagulants Z79.01 [facility] [address] [id number] [address] [place] [address] Mar, Hypertriglyceridemia E78.1 a nd 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 [facility] [address] [id number] [address] [place] [phone] Feb, longterm (current) 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 Z79.01 [facility] [address] [id number] [address] [place] [phone] Feb, computer terminal operator (current) use of a nticoagulants Z79.01 [facility] [address] [id number] [address] [place] [address] Feb, longterm (current) 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 Z79.01 [facility] [address] [id number] [address] [place] [phone] Dec, [facility] [address] [id number] [address] [place] [phone] Nov, [facility] [address] [id number] [address] [place] [address] Nov, History of DVT (deep vein th rombosis) Z86.718 ; Tremulousness R25.1 ; Generalized anxiety disorder F41.1 ; Peripheral edema R60.9 and Hypertriglyceridemia E78.1 [facility] [address] [id number] [address] [place] [address] Oct, History of DVT (deep vein th rombosis) Z86.718 [facility] [address] [id number] [address] [place] [address] Oct, [facility] [address] [id number] [address] [place] [phone] Sep, History of DVT (deep vein th rombosis) Z86.718 [facility] [address] [id number] [address] [place] [phone] Sep, longterm (current) 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 Z79.01 [facility] [address] [id number] [address] [place] [phone] July, [place] [address] [id number] [address] [place] [id number] July, longterm (current) 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 Z79.01 [place] [address] [id number] [address] [place] [address] July, computer terminal operator (current) use of a nticoagulants Z79.01 [place] [address] [id number] [address] [place] [phone] Jun, longterm (current) 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 Z79.01 [facility] [address] [id number] [address] [place] [address] Jun, Coccyx pain M53.3 ; Encounte r for therapeutic drug level monitoring Z51.81 and computer terminal operator current use 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.01 [place] [address] [id number] [address] [place] [phone] May, Abnormal mammogram R92.8 [facility] [address] [id number] [address] [place] [phone] May, [facility] [id number] [address] [place] [address] May, Acute vaginitis N76.0 and En counter for other screening for malignant neoplasm of breast Z12.39 [place] [address] [id number] [address] [place] [phone] Apr, [place] [address] [id number] [address] [place] [address] Apr, [facility] [address] [id number] [address] [place] [phone] Apr, Peripheral edema R60.9 [facility] [address] [facility] [id number] [address] [place] [address] Apr, longterm (current) 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 Z79.01 [facility] [address] [id number] [address] [place] [address] Apr, Peripheral edema R60.9 and L jose martin term (current) 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 Z79.01 [place] [address] [id number] [address] [place] [address] Apr, computer terminal operator (current) use of a nticoagulants Z79.01 [place] [address] [id number] [address] [place] [phone] Apr, [facility] [address] [facility] [id number] [address] [place] [phone] Apr, longterm (current) 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 Z79.01 [place] [address] [id number] [address] [place] [address] Apr, Peripheral edema R60.9 [place] [address] [facility] [id number] [address] [place] [phone] Mar, computer terminal operator (current) use of a nticoagulants Z79.01 [facility] [address] [id number] [address] [place] [phone] Mar, computer terminal operator (current) use of a nticoagulants Z79.01 and Hypertriglyceridemia E78.1 [place] [address] [facility] [id number] [address] [place] [phone] Mar, longterm (current) 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 Z79.01 [place] [address] [facility] [id number] [address] [place] [phone] Mar, computer terminal operator (current) use of a nticoagulants Z79.01 [place] [address] [id number] [address] [place] [phone] Mar, [place] [address] [id number] [address] [place] [address] Mar, longterm (current) 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 Z79.01 ; Hypertriglyceridemia E78.1 ; Personal history of venous thrombosis and embolism Z86.718 and Lump R22.9 [place] [address] [id number] [address] [place] [phone] Mar, Personal history of venous t hrombosis and embolism Z86.718 [place] [address] [id number] [address] [place] [address] Mar, Personal history of venous t hrombosis and embolism Z86.718 [place] [address] [id number] [address] [place] [phone] Mar, [place] [address] [id number] [address] [place] [phone] Dec, Personal history of venous t hrombosis and embolism Z86.718 [place] [address] [id number] [address] [place] [phone] Dec, Personal history of venous t hrombosis and embolism V12.51 [place] [address] [id number] [address] [place] [phone] 28 Nov, 2014 Personal history of venous t hrombosis and embolism V12.51 [place] [address] [id number] [address] [place] [phone] 25 Nov, 2014 Personal history of venous t hrombosis and embolism V12.51 [place] [address] [id number] [address] [place] [phone] 17 Nov, 2014 Personal history of venous t hrombosis and embolism V12.51 [place] [address] [id number] [address] [place] [phone] Nov, Personal history of venous t hrombosis and embolism V12.51 [facility] [address] [id number] [address] [place] [phone] Nov, [facility] [address] [id number] [address] [place] [phone] Oct, Dysuria 788.1 [facility] [address] [id number] [address] [place] [phone] Oct, Personal history of venous t hrombosis and embolism V12.51 [facility] [address] [id number] [address] [place] [phone] Oct, [facility] [address] [id number] [address] [place] [phone] Oct, Personal history of venous t hrombosis and embolism V12.51 [facility] [address] [id number] [address] [place] [phone] Sep, Personal history of venous t hrombosis and embolism V12.51 [facility] [address] [id number] [address] [place] [phone] Sep, Personal history of venous t hrombosis and embolism V12.51 [facility] [address] [id number] [address] [place] [phone] Aug, Personal history of venous t hrombosis and embolism V12.51 [facility] [address] [id number] [address] [place] [phone] Aug, Personal history of venous t hrombosis and embolism V12.51 [facility] [address] [id number] [address] [place] [phone] Aug, Personal history of venous t hrombosis and embolism V12.51 [facility] [facility] [address] [id number] [address] [place] [address] July, Generalized anxiety disorder 300.02 ; Abdominal pain, left lower quadrant 789.04 and Personal history of venous thrombosis and embolism V12.51 [facility] [address] [id number] [address] [place] [address], [place] [address] 14 Jun, 2014 [facility] [address] [id number] [address] [place] [address], [place] [address] Jun, [facility] [address] [id number] [address] [place] [address], [place] [address] May, [facility] [address] [id number] [address] [place] [address], [place] [address] May, [facility] [address] [id number] [address] [place] [address], [place] [address] May, [facility] [address] [id number] [address] [place] [address], [place] [address] May, [facility] [address] [id number] [address] [place] [address], [place] [address] May, [facility] [address] [id number] [address] [place] [address], [place] [address] May, [facility] [address] [id number] [address] [place] [address], [place] [address] May, [facility] [address] [id number] [address] [place] [address], [place] [address] May, [facility] [address] [id number] [address] [place] [address], [place] [address] Apr, [facility] [address] [id number] [address] [place] [address], [place] [address] Apr, [facility] [address] [id number] [address] [place] [address], [place] [address] Apr, [facility] [address] [id number] [address] [place] [address], [place] [address] Apr, [facility] [address] [id number] [address] [place] [address] Apr, [facility] [address] [id number] [address] [place] [address], [place] [address] Mar, [facility] [address] [id number] [address] [place] [address], [place] [address] Mar, [facility] [address] [id number] [address] [place] [address], [place] [address] Mar, [facility] [address] [id number] [address] [place] [address], [place] [address] Mar, [facility] [address] [id number] [address] [place] [address], [place] [address] Mar, [facility] [address] [id number] [address] [place] [address], [place] [address] Mar, [facility] [address] [id number] [address] [place] [address], [place] [address] Feb, [facility] [address] [id number] [address] [place] [address], [place] [address] Feb, [facility] [address] [id number] [address] [place] [address], [place] [address] Feb, [facility] [address] [id number] [address] [place] [address], [place] [address] Feb, [facility] [address] [id number] [address] [place] [address], [place] [address] Feb, [facility] [address] [id number] [address] [place] [address], [place] [address] Feb, [facility] [address] [id number] [address] [place] [address], [place] [address] Feb, [facility] [address] [id number] [address] [place] [address], [place] [address] Feb, [facility] [address] [id number] [address] [place] [address], [place] [address] Feb, [facility] [address] [id number] [address] [place] [address], [place] [address] Feb, [facility] [address] [id number] [address] [place] [address], [place] [address] Jan, [facility] [address] [id number] [address] [place] [address], [place] [address] Jan, [facility] [address] [id number] [address] [place] [address], [place] [address] Jan, [facility] [address] [id number] [address] [place] [address], [place] [address] Jan, [facility] [address] [id number] [address] [place] [address], [place] [address] Jan, [facility] [address] [id number] [address] [place] [address], [place] [address] Jan, [facility] [address] [id number] [address] [place] [address], [place] [address] Jan, [facility] [address] [id number] [address] [place] [address], [place] [address] Jan, [facility] [address] [id number] [address] [place] [address], [place] [address] Jan, [facility] [address] [id number] [address] [place] [address], [place] [address] Jan, [facility] [address] [id number] [address] [place] [address], [place] [address] Dec, [facility] [address] [id number] [address] [place] [address], [place] [address] Dec, [facility] [address] [id number] [address] [place] [address], [place] [address] Dec, [facility] [address] [id number] [address] [place] [address], [place] [address] Dec, [facility] [address] [id number] [address] [place] [address], [place] [address] Dec, [facility] [address] [id number] [address] [place] [address], [place] [address] Dec, [facility] [address] [id number] [address] [place] [address], [place] [address] Dec, [facility] [address] [id number] [address] [place] [address], [place] [address] Dec, [facility] [address] [id number] [address] [place] [address], [place] [address] Dec, [facility] [address] [id number] [address] [place] [address], [place] [address] Dec, [facility] [address] [id number] [address] [place] [address], [place] [address] Dec, [facility] [address] [id number] [address] [place] [address], [place] [address] Dec, [facility] [address] [id number] [address] [place] [address], [place] [address] Dec, [facility] [address] [id number] [address] [place] [address], [place] [address] Dec, [facility] [address] [id number] [address] [place] [address], [place] [address] Dec, [facility] [address] [id number] [address] [place] [address], [place] [address] 30 Nov, 2013 [facility] [address] [id number] [address] [place] [address], [place] [address] 30 Nov, 2013 [facility] [address] [id number] [address] [place] [address], [place] [address] Nov, 2013 [facility] [address] [id number] [address] [place] [address], [place] [address] 26 Nov, 2013 [facility] [address] [id number] [address] [place] [address], [place] [address] 24 Nov, 2013 [facility] [address] [id number] [address] [place] [address], [place] [address] 24 Nov, 2013 [facility] [address] [id number] [facility] [place] [address] 23 Nov, 2013 [facility] [address] [id number] [address] [place] [address], [place] [address] 23 Nov, 2013 [facility] [address] [id number] [address] [place] [address], [place] [address] 18 Nov, 2013 [facility] [address] [id number] [address] [place] [address], [place] [address] 18 Nov, 2013 [facility] [address] [id number] [address] [place] [address], [place] [address] 17 Nov, 2013 [facility] [address] [id number] [address] [place] [address], [place] [address] 17 Nov, 2013 [facility] [address] [id number] [address] [place] [address], [place] [address] 11 Nov, 2013 [facility] [address] [id number] [address] [place] [address], [place] [address] 11 Nov, 2013 [facility] [address] [id number] [address] [place] [address], [place] [address] 10 Nov, 2013 [facility] [address] [id number] [address] [place] [address], [place] [address] 10 Nov, 2013 [facility] [address] [id number] [address] [place] [address], [place] [address] 08 Nov, 2013 [facility] [address] [id number] [address] [place] [address], [place] [address] 08 Nov, 2013 [facility] [address] [id number] [address] [place] [address], [place] [address] Sep, [facility] [address] [id number] [address] [place] [address], [place] [address] Sep, 2013 [facility] [address] [id number] [address] [place] [address], [place] [address] 11 Sep, 2013 [facility] [address] [id number] [address] [place] [address], [place] [address] Sep, [facility] [address] [id number] [facility] [address] Sep, [facility] [address] [id number] [address] [place] [address], [place] [address] Sep, [facility] [address] [id number] [address] [place] [address], [place] [address] Aug, [facility] [address] [id number] [address] [place] [address], [place] [address] Aug, [facility] [address] [id number] [address] [place] [address], [place] [address] Aug, [facility] [address] [id number] [address] [place] [address], [place] [address] Aug, [facility] [address] [id number] [address] [place] [address], [place] [address] Aug, [facility] [address] [id number] [address] [place] [address], [place] [address] Aug, [facility] [address] [id number] [address] [place] [address], [place] [address] Aug, [facility] [address] [id number] [address] [place] [address], [place] [address] Aug, [facility] [address] [id number] [address] [place] [address], [place] [address] Aug, [facility] [address] [id number] [address] [place] [address], [place] [address] Aug, [facility] [address] [id number] [address] [place] [address], [place] [address] Aug, [facility] [address] [id number] [address] [place] [address], [place] [address] July, [facility] [address] [id number] [address] [place] [address], [place] [address] July, [facility] [address] [id number] [facility] [address] Jun, [facility] [address] [id number] [facility] [place] [address] Jun, [facility] [address] [id number] [address] [place] [address], [place] [address] Jun, [facility] [address] [id number] [address] [place] [address], [place] [address] Jun, [facility] [address] [id number] [address] [place] [address], [place] [address] Jun, [facility] [address] [id number] [address] [place] [address], [place] [address] Jun, [facility] [address] [id number] [address] [place] [address], [place] [address] Jun, [facility] [address] [id number] [address] [place] [address], [place] [address] Jun, [facility] [address] [id number] [address] [place] [address], [place] [address] Jun, [facility] [address] [id number] [address] [place] [address], [place] [address] Jun, [facility] [address] [id number] [address] [place] [address], [place] [address] Jun, [facility] [address] [id number] [address] [place] [address], [place] [address] Jun, [facility] [address] [id number] [address] [place] [address], [place] [address] May, [facility] [address] [id number] [address] [place] [address], [place] [address] May, [facility] [address] [id number] [address] [place] [address], [place] [address] May, [facility] [address] [id number] [address] [place] [address], [place] [address] May, [facility] [address] [id number] [facility] [place] [address] May, [facility] [address] [id number] [address] [place] [address], [place] [address] May, [facility] [address] [id number] [address] [place] [address], [place] [address] May, [facility] [address] [id number] [address] [place] [address], [place] [address] May, [facility] [address] [id number] [address] [place] [address], [place] [address] May, [facility] [address] [id number] [address] [place] [address], [place] [address] May, [facility] [address] [id number] [address] [place] [address], [place] [address] May, [facility] [address] [id number] [address] [place] [address], [place] [address] May, [facility] [address] [id number] [address] [place] [address], [place] [address] Apr, [facility] [address] [id number] [address] [place] [address], [place] [address] Apr, [facility] [address] [id number] [address] [place] [address], [place] [address] Apr, [facility] [address] [id number] [address] [place] [address], [place] [address] Apr, [facility] [address] [id number] [address] [place] [address], [place] [address] Apr, [facility] [address] [id number] [address] [place] [address], [place] [address] Apr, [facility] [address] [id number] [address] [place] [address], [place] [address] Apr, [facility] [address] [id number] [address] [place] [address], [place] [address] Apr, [facility] [address] [id number] [address] [place] [address], [place] [address] Apr, [facility] [address] [id number] [address] [place] [address], [place] [address] Apr, [facility] [address] [id number] [address] [place] [address], [place] [address] Apr, [facility] [address] [id number] [address] [place] [address], [place] [address] Apr, [facility] [address] [id number] [address] [place] [address], [place] [address] Apr, [facility] [address] [id number] [address] [place] [address], [place] [address] Apr, [facility] [address] [id number] [address] [place] [address], [place] [address] Apr, [facility] [address] [id number] [address] [place] [address], [place] [address] Apr, [facility] [address] [id number] [address] [place] [address], [place] [address] Apr, [facility] [address] [id number] [address] [place] [address], [place] [address] Jan, [facility] [address] [id number] [address] [place] [address], [place] [address] 13 Jan, 2013 [facility] [address] [id number] [address] [place] [address], [place] [address] 08 Jan, 2013 [facility] [address] [id number] [address] [place] [address], [place] [address] 07 Jan, 2013 [facility] [address] [id number] [address] [place] [address], [place] [address] 07 Jan, 2013 [facility] [address] [id number] [address] [place] [id number] [place] [address] 07 Jan, 2013 [facility] [address] [id number] [address] [place] [address], [place] [address] Jan, [facility] [address] [id number] [address] [place] [address], [place] [address] Dec, [facility] [address] [id number] [address] [place] [address], [place] [address] Dec, [facility] [address] [id number] [address] [place] [address], [place] [address] Dec, [facility] [address] [id number] [address] [place] [address], [place] [address] Nov, [facility] [address] [id number] [address] [place] [address], [place] [address] Nov, [facility] [address] [id number] [address] [place] [address], [place] [address] 05 Nov, 2012 [facility] [address] [id number] [address] [place] [address], [place] [address] Nov, [facility] [address] [id number] [address] [place] [address], [place] [address] Oct, [facility] [address] [id number] [address] [place] [address], [place] [address] Oct, [facility] [address] [id number] [address] [place] [address], [place] [address] Oct, [facility] [address] [id number] [address] [place] [address], [place] [address] Oct, [facility] [address] [id number] [address] [place] [address], [place] [address] Oct, [facility] [address] [id number] [address] [place] [address], [place] [address] Sep, [facility] [address] [id number] [address] [place] [address], [place] [address] Sep, [facility] [address] [id number] [address] [place] [address], [place] [address] Sep, [facility] [address] [id number] [address] [place] [address], [place] [address] Sep, [facility] [address] [id number] [address] [place] [address], [place] [address] Sep, [facility] [address] [id number] [address] [place] [address], [place] [address] Sep, [facility] [address] [id number] [address] [place] [address], [place] [address] Sep, [facility] [address] [id number] [address] [place] [address], [place] [address] Aug, [facility] [address] [id number] [address] [place] [address], [place] [address] Aug, [facility] [address] [id number] [address] [place] [address], [place] [address] July, [facility] [address] [id number] [address] [place] [address], [place] [address] Jun, [facility] [address] [id number] [address] [place] [address], [place] [address] Jun, [facility] [address] [id number] [address] [place] [address], [place] [address] Jun, [facility] [address] [id number] [address] [place] [address], [place] [address] Apr, [facility] [address] [id number] [address] [place] [address], [place] [address] Apr, [facility] [address] [id number] [address] [place] [address], [place] [address] Apr, [facility] [address] [id number] [address] [place] [address], [place] [address] Mar, [facility] [address] [id number] [address] [place] [address], [place] [address] 24 Mar, 2012 [facility] [address] [id number] [address] [place] [address], [place] [address] 2012 [facility] [address] [id number] [address] [place] [address], [place] [address] 09 Mar, 2012 [facility] [address] [id number] [address] [place] [address], [place] [address] 07 Mar, 2012 [facility] [address] [id number] [address] [place] [address], [place] [address] 14 Feb, 2012 [facility] [address] [id number] [address] [place] [address], [place] [address] 14 Feb, 2012 [facility] [address] [id number] [address] [place] [address], [place] [address] 13 Jan, 2012 [facility] [address] [id number] [address] [place] [address], [place] [address] 13 Jan, 2012 [facility] [address] [id number] [address] [place] [address], [place] [address] 13 Jan, 2012 [facility] [address] [id number] [address] [place] [address], [place] [address] 13 Jan, 2012 [facility] [address] [id number] [address] [place] [address], [place] [address] 07 Jan, 2012 [facility] [address] [id number] [address] [place] [address], [place] [address] 07 Jan, 2012 [facility] [address] [id number] [address] [place] [address], [place] [address] Jan, [facility] [address] [id number] [address] [place] [address], [place] [address] Dec, [facility] [address] [id number] [address] [place] [address], [place] [address] Dec, [facility] [address] [id number] [address] [place] [address], [place] [address] 30 Dec, 2011 [facility] [address] [id number] [address] [place] [address], [place] [address] Dec, [facility] [address] [id number] [address] [place] [address], [place] [address] Dec, [facility] [address] [id number] [address] [place] [address], [place] [address] Dec, [facility] [address] [id number] [address] [place] [address], [place] [address] Dec, [facility] [address] [id number] [address] [place] [address], [place] [address] Dec, [facility] [address] [id number] [address] [place] [address], [place] [address] Dec, [facility] [address] [id number] [address] [place] [address], [place] [address] Dec, [facility] [address] [id number] [address] [place] [address], [place] [address] Oct, [facility] [address] [id number] [address] [place] [address], [place] [address] Oct, [facility] [address] [id number] [address] [place] [address], [place] [address] Aug, [facility] [facility] [address] [id number] [address] [place] [address], [place] [address] Aug, [facility] [address] [id number] [address] [place] [address], [place] [address] July, [facility] [address] [id number] [address] [place] [address], [place] [address] Jun, [facility] [address] [id number] [address] [place] [address], [place] [address] Jun, [facility] [address] [id number] [address] [place] [address], [place] [address] May, [facility] [address] [id number] [address] [place] [address], [place] [id number] Apr, [facility] [address] [id number] [address] [place] [address], [place] [phone] 16 Apr, 2011 [facility] [address] [id number] [address] [place] [address], [place] [id number] 19 Mar, 2011 [facility] [address] [id number] [address] [place] [address], [place] [id number] 16 Mar, 2011 [facility] [address] [id number] [address] [place] [address], [place] [phone] 19 Feb, 2011 [facility] [address] [id number] [address] [place] [address], [place] [phone] 15 Feb, 2011 [facility] [address] [id number] [address] [place] [address], [place] [id number] 13 Feb, 2011 [facility] [address] [id number] [address] [place] [address], [place] [phone] 13 Feb, 2011 [facility] [address] [id number] [address] [place] [address], [place] [address] Jan, [facility] [address] [id number] [address] [place] [address], [place] [address] 17 Dec, 2010 [facility] [address] [id number] [address] [place] [phone] 08 Feb, 2010 [facility] [address] [id number] [address] [place] [address], [place] [address] 02 Feb, 2010 [facility] [address] [id number] [address] [place] [phone] Feb, [facility] [address] [id number] [address] [place] [address], [place] [address] Feb, [facility] [address] [id number] [address] [place] [phone] 15 Dec, 2009 [facility] [address] [id number] [address] [place] [address], [place] [address] 15 Dec, 2009 [facility] [address] [id number] [address] [place] [id number] 10 Oct, 2009 [facility] [address] [facility] [id number] [address] [place] [phone] Jun, [facility] [address] [facility] [id number] [address] [place] [phone] Feb, [facility] [address] [facility] [id number] [address] [place] [phone] Feb, [facility] [address] [facility] [id number] [address] [place] [phone] Feb, [facility] [address] [facility] [id number] [address] [place] [phone] Dec, IMMUNIZATIONS No Known Immunizations SOCIAL HISTORY Never Assessed REASON FOR VISIT PLAN OF CARE VITAL SIGNS MEDICATIONS Unknown Medications RESULTS No Results PROCEDURES Procedure Date Ordered Result Body Site LIPID PANEL Dec 23, 2013 ASSAY OF VITAMIN D Dec 23, 2013 VENIPUNCT, ROUTINE* Dec 23, 2013 INSTRUCTIONS MEDICATIONS ADMINISTERED No Known Medications MEDICAL (GENERAL) HISTORY Type Description Date Medical History obesity Medical History Hematologic disorder factor clotting pro [place] Medical History DVT's Medical History Torn Rotator Cuff, repaired 09/23/17 Surgical History Lap Band 10/2012 Surgical History section 1985, 1987 Surgical History cholecystectomy Surgical History Igo Filter 06/2009 Surgical History Left leg exploratory surgery r/t clot Surgical History left shoulder surgery 09/14/17 Surgical History lap band removed 12/2017 Surgical History gastic sleeve 01/2018 Surgical History Back surgery 2019 Hospitalization History Ruptured Ovarian Cyst with abd bleed ing 11/2009 Hospitalization History Broken Back 06/2018
--- OUTSIDE RECORDS SUMMARY | 2019-10-19 12:32 | XMS REPORT ---
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 Active 070788271 Problem Hypertriglyceridemia E78.1 Active 011793973 Problem 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 Active 882668639 Problem Pelvic pain R10.2 Active 49997441 Problem Peripheral edema R60.9 Active 271 466544 Problem Moderate episode of recurrent major depressive disorder F33.1 Active 207268998 Problem Presence of IVC filter Z95.828 Active 421718050 Problem Vitamin D deficiency E55.9 Active 36563229 Problem Generalized anxiety disorder F41.1 A ctive 956627159 Problem Excessive daytime sleepiness G47.19 A ctive 828952788041 Problem Gastroesophageal reflux disease, esophagitis pre sence not specified K21.9 Active 574856476 Problem Thyroid nodule E04.1 Active 55310 5005 Problem Morbid obesity E66.01 Active 54811 6002 ALLERGIES No Information ENCOUNTERS Encounter Location Date Diagnosis [facility] [address] [facility] [id number] [address] [place] [phone] Oct, [facility] [address] [facility] [id number] [address] [place] [phone] Oct, Morbid obesity E66.01 [facility] [address] [facility] [id number] [address] [place] [phone] Oct, Hypertriglyceridemia E78.1 [place] [address] [id number] [address] [place] [phone] Oct, [facility] [address] [id number] [address] [place] [phone] Oct, Hypertriglyceridemia E78.1 [facility] [address] [id number] [address] [place] [phone] Sep, Hypertriglyceridemia E78.1 a nd Vitamin D deficiency E55.9 [facility] [address] [id number] [address] [place] [phone] Sep, [facility] [address] [id number] [address] [place] [phone] Sep, Morbid obesity E66.01 ; Mode rate episode of recurrent major depressive disorder F33.1 ; Hypertriglyceridemia E78.1 and Vitamin D deficiency E55.9 [facility] [address] [facility] [id number] [address] [place] [phone] Aug, [facility] [address] [id number] [address] [place] [phone] July, [facility] [address] [facility] [id number] [address] [place] [phone] July, [facility] [address] [facility] [id number] [address] [place] [phone] Jun, [facility] [address] [facility] [id number] [address] [place] [phone] Jun, [facility] [address] [facility] [id number] [address] [place] [phone] Jun, Closed compression fracture of L3 lumbar vertebra with routine healing, subsequent encounter S32.030D and Drug-induced constipation K59.03 [facility] [address] [id number] [address] [place] [phone] Jun, [facility] [address] [facility] [id number] [address] [place] [phone] Jun, [facility] [address] [facility] [id number] [address] [place] [phone] 19 Apr, 2018 [facility] [address] [facility] [id number] [place] [phone] 18 Apr, 2018 Morbid obesity E66.01 [facility] [address] [facility] [id number] [address] [place] [phone] 12 Apr, 2018 Morbid obesity E66.01 ; Hype rtriglyceridemia E78.1 ; Gastroesophageal reflux disease, esophagitis presence not specified K21.9 and Joint pain M25.50 [facility] [address] [facility] [id number] [address] [place] [phone] 22 Feb, 2018 [facility] [address] [place] [id number] [place] [phone] Feb, [facility] [address] [facility] [id number] [address] [place] [phone] Jan, Acute bacterial conjunctivit is H10.30 [facility] [address] [facility] [id number] [address] [place] [phone] 08 Dec, 2017 [facility] [address] [phone] 04 Dec, 2017 [facility] [address] [facility] [id number] [address] [place] [phone] 17 Nov, 2017 [facility] [address] [place] [id number] [address] [place] [phone] 07 Nov, 2017 Obstructive sleep apnea G47. 33 ; Morbid obesity E66.01 and Gastroesophageal reflux disease, esophagitis presence not specified K21.9 [facility] [address] [id number] [address] [place] [id number] 06 Nov, 2017 Encounter for examination of eyes and vision without abnormal findings Z01.00 [facility] [address] [place] [id number] [address] [place] [phone] 31 Oct, 2017 Thyroid nodule E04.1 and Scr eening for breast cancer Z12.31 [facility] [address] [place] [id number] [address] [place] [phone] Oct, History of DVT (deep vein th rombosis) Z86.718 ; Thyroid nodule E04.1 and Gastroesophageal reflux disease, esophagitis presence not specified K21.9 [place] [address] [id number] [address] [place] [phone] Oct, [place] [address] [facility] [id number] [address] [place] [phone] Sep, [place] [address] [id number] [address] [place] [phone] Aug, [place] [address] [place] [id number] [place] [phone] Aug, [place] [address] [place] [id number] [place] [phone] Aug, Acute pain of left shoulder M25.512 and Thyroid nodule E04.1 [place] [address] [place] [id number] [address] [place] [phone] July, Superior glenoid labrum lesi on of left shoulder, subsequent encounter S43.432D [place] [address] [place] [id number] [place] [phone] Jun, History of DVT (deep vein th rombosis) Z86.718 [place] [address] [facility] [id number] [address] [place] [phone] Jun, History of DVT (deep vein th rombosis) Z86.718 [place] [address] [facility] [id number] [address] [place] [phone] Jun, Impingement syndrome, should er, left M75.42 [place] [address] [place] [id number] [address] [place] [phone] May, Subacromial bursitis of left shoulder joint M75.52 [place] [address] [place] [id number] [address] [place] [phone] May, [facility] [address] [id number] [address] [place] [phone] May, Hypertriglyceridemia E78.1 ; 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 and Excessive daytime sleepiness G47.19 [facility] [address] [facility] [id number] [address] [place] [phone] May, History of DVT (deep vein th rombosis) Z86.718 ; Generalized anxiety disorder F41.1 ; Hypertriglyceridemia E78.1 ; 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 ; Subacromial bursitis of left shoulder joint M75.52 and Excessive daytime sleepiness G47.19 [place] [address] [id number] [address] [place] [phone] May, [place] [address] [facility] [id number] [address] [place] [phone] May, nursing home (current) use of a nticoagulants Z79.01 [place] [address] [id number] [address] [place] [phone] Apr, nursing home (current) use of a nticoagulants Z79.01 [place] [address] [id number] [address] [place] [phone] Apr, 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 termite (current) use of a nticoagulants Z79.01 [place] [address] [id number] [address] [place] [address] Apr, 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 termite (current) use of a nticoagulants Z79.01 [facility] [address] [id number] [address] [place] [phone] Apr, [facility] [address] [id number] [address] [place] [phone] 16 Apr, 2017 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 termite (current) use of a nticoagulants Z79.01 [place] [address] [facility] [id number] [address] [place] [phone] 13 Apr, 2017 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 termite (current) use of a nticoagulants Z79.01 [facility] [address] [id number] [address] [place] [phone] Apr, nursing home (current) use of a nticoagulants Z79.01 [facility] [address] [id number] [address] [place] [phone] Apr, 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 termite (current) use of a nticoagulants Z79.01 [facility] [address] [id number] [address] [place] [address] Apr, nursing home (current) use of a nticoagulants Z79.01 [facility] [address] [id number] [address] [place] [phone] Apr, nursing home (current) use of a nticoagulants Z79.01 [facility] [address] [id number] [address] [place] [phone] Mar, nursing home (current) use of a nticoagulants Z79.01 [facility] [address] [id number] [address] [place] [phone] Mar, [facility] [address] [id number] [address] [place] [phone] Mar, nursing home (current) use of a nticoagulants Z79.01 [facility] [address] [id number] [address] [place] [phone] Jan, Dental examination Z01.20 [facility] [address] [id number] [address] [place] [phone] Jan, [facility] [address] [id number] [address] [place] [phone] Jan, nursing home (current) use of a nticoagulants Z79.01 [facility] [address] [id number] [address] [place] [phone] Jan, History of DVT (deep vein th rombosis) Z86.718 [facility] [address] [id number] [address] [place] [phone] Jan, Generalized anxiety disorder F41.1 and Peripheral edema R60.9 [facility] [address] [id number] [address] [place] [phone] Nov, History of DVT (deep vein th rombosis) Z86.718 [facility] [address] [id number] [address] [place] [phone] Nov, nursing home (current) use of a nticoagulants Z79.01 [facility] [address] [id number] [address] [place] [phone] Nov, Acute non-recurrent maxillar y sinusitis J01.00 [facility] [address] [id number] [address] [place] [phone] Oct, nursing home (current) use of a nticoagulants Z79.01 [facility] [address] [id number] [address] [place] [phone] Oct, Personal history of venous t hrombosis and embolism Z86.718 [facility] [address] [id number] [address] [place] [phone] Sep, [facility] [address] [id number] [address] [place] [phone] Sep, Personal history of venous t hrombosis and embolism Z86.718 [facility] [address] [id number] [address] [place] [phone] Sep, nursing home (current) use of a nticoagulants Z79.01 [facility] [address] [id number] [address] [place] [phone] Sep, 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 termite (current) use of a nticoagulants Z79.01 [facility] [address] [id number] [address] [place] [phone] Sep, Generalized anxiety disorder F41.1 and History of DVT (deep vein thrombosis) Z86.718 [place] [address] [facility] [id number] [address] [place] [phone] Aug, History of DVT (deep vein th rombosis) Z86.718 ; Generalized anxiety disorder F41.1 ; nursing home (current) use of anticoagulants Z79.01 ; Pelvic pain R10.2 ; Hypertriglyceridemia E78.1 ; Excessive daytime sleepiness G47.19 ; Colon cancer screening Z12.11 ; Screening for breast cancer Z12.39 ; Peripheral edema R60.9 and Gastroesophageal reflux disease, esophagitis presence not specified K21.9 [place] [address] [phone] Aug, [place] [address] [place] [id number] [place] [phone] July, [place] [address] [phone] July, History of DVT (deep vein th rombosis) Z86.718 [place] [address] [place] [id number] [address] [place] [phone] Jun, Generalized anxiety disorder F41.1 [place] [address] [place] [id number] [address] [place] [phone] Jun, History of DVT (deep vein th rombosis) Z86.718 [place] [address] [place] [id number] [address] [place] [phone] Jun, History of DVT (deep vein th rombosis) Z86.718 [place] [address] [place] [id number] [address] [place] [phone] Jun, History of DVT (deep vein th rombosis) Z86.718 [place] [address] [place] [id number] [address] [place] [phone] Jun, History of DVT (deep vein th rombosis) Z86.718 [place] [address] [place] [id number] [address] [place] [phone] May, History of DVT (deep vein th rombosis) Z86.718 [facility] [address] [id number] [address] [place] [phone] May, 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 termite (current) use of a nticoagulants Z79.01 [facility] [address] [id number] [address] [place] [phone] May, 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 termite (current) use of a nticoagulants Z79.01 [facility] [address] [id number] [address] [place] [address] May, History of DVT (deep vein th rombosis) Z86.718 [facility] [address] [id number] [address] [place] [phone] 27 Apr, 2016 Bacterial conjunctivitis of left eye H10.9 and H/O motion sickness Z87.898 [facility] [address] [id number] [address] [place] [phone] 24 Apr, 2016 History of DVT (deep vein th rombosis) Z86.718 [place] [address] [id number] [address] [place] [phone] 23 Apr, 2016 History of DVT (deep vein th rombosis) Z86.718 [facility] [address] [id number] [address] [place] [phone] 15 Apr, 2016 History of DVT (deep vein th rombosis) Z86.718 [facility] [address] [id number] [address] [place] [phone] 14 Apr, 2016 nursing home (current) use of a nticoagulants Z79.01 [facility] [address] [id number] [address] [place] [phone] Mar, [facility] [address] [id number] [address] [place] [phone] Mar, nursing home (current) use of a nticoagulants Z79.01 [facility] [address] [id number] [address] [place] [address] Mar, Hypertriglyceridemia E78.1 a nd 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 [facility] [address] [id number] [address] [place] [address] Feb, 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 termite (current) use of a nticoagulants Z79.01 [facility] [address] [id number] [address] [place] [phone] Feb, nursing home (current) use of a nticoagulants Z79.01 [facility] [address] [id number] [address] [place] [phone] Feb, 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 termite (current) use of a nticoagulants Z79.01 [facility] [address] [id number] [address] [place] [phone] Dec, [facility] [address] [id number] [address] [place] [phone] Nov, [place] [address] [id number] [address] [place] [address] Nov, History of DVT (deep vein th rombosis) Z86.718 ; Tremulousness R25.1 ; Generalized anxiety disorder F41.1 ; Peripheral edema R60.9 and Hypertriglyceridemia E78.1 [facility] [address] [id number] [address] [place] [phone] Oct, History of DVT (deep vein th rombosis) Z86.718 [place] [address] [id number] [address] [place] [phone] Oct, [place] [address] [facility] [id number] [address] [place] [address] Sep, History of DVT (deep vein th rombosis) Z86.718 [place] [address] [id number] [address] [place] [phone] Sep, nursing home (current) use of a nticoagulants Z79.01 [place] [address] [id number] [address] [place] [phone] July, [facility] [address] [id number] [address] [place] [address] July, 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 termite (current) use of a nticoagulants Z79.01 [place] [address] [id number] [address] [place] [phone] July, 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 termite (current) use of a nticoagulants Z79.01 [place] [address] [facility] [id number] [address] [place] [address] Jun, 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 termite (current) use of a nticoagulants Z79.01 [facility] [place] [address] [address] [facility] [id number] [address] [place] [phone] Jun, Coccyx pain M53.3 ; Encounte r for therapeutic drug level monitoring Z51.81 and 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 termite current use 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.01 [place] [address] [id number] [address] [place] [phone] May, Abnormal mammogram R92.8 [facility] [address] [id number] [address] [place] [phone] May, [facility] [place] [address] [address] [facility] [id number] [address] [place] [phone] May, Acute vaginitis N76.0 and En counter for other screening for malignant neoplasm of breast Z12.39 [place] [address] [facility] [id number] [address] [place] [phone] Apr, [place] [address] [facility] [id number] [address] [place] [phone] Apr, [facility] [address] [facility] [id number] [address] [place] [phone] Apr, Peripheral edema R60.9 [facility] [address] [id number] [address] [place] [address] Apr, 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 termite (current) use of a nticoagulants Z79.01 [facility] [address] [id number] [address] [place] [phone] Apr, Peripheral edema R60.9 and L jose martin term (current) 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 Z79.01 [facility] [address] [id number] [address] [place] [phone] Apr, 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 termite (current) use of a nticoagulants Z79.01 [facility] [address] [id number] [address] [place] [phone] Apr, [facility] [address] [id number] [address] [place] [phone] Apr, nursing home (current) use of a nticoagulants Z79.01 [facility] [address] [id number] [address] [place] [id number] Apr, Peripheral edema R60.9 [facility] [address] [id number] [address] [place] [id number] Mar, 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 termite (current) use of a nticoagulants Z79.01 [facility] [address] [id number] [address] [place] [id number] Mar, nursing home (current) use of a nticoagulants Z79.01 and Hypertriglyceridemia E78.1 [facility] [address] [id number] [address] [place] [phone] Mar, 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 termite (current) use of a nticoagulants Z79.01 [facility] [address] [id number] [address] [place] [phone] Mar, nursing home (current) use of a nticoagulants Z79.01 [facility] [address] [id number] [address] [place] [phone] Mar, [facility] [address] [id number] [address] [place] [id number] Mar, 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 termite (current) use of a nticoagulants Z79.01 ; Hypertriglyceridemia E78.1 ; Personal history of venous thrombosis and embolism Z86.718 and Lump R22.9 [place] [address] [id number] [address] [place] [phone] Mar, Personal history of venous t hrombosis and embolism Z86.718 [place] [address] [id number] [address] [place] [phone] Mar, Personal history of venous t hrombosis and embolism Z86.718 [place] [address] [id number] [address] [place] [id number] Mar, [place] [address] [id number] [address] [place] [id number] Dec, Personal history of venous t hrombosis and embolism Z86.718 [place] [address] [id number] [address] [place] [id number] Dec, Personal history of venous t hrombosis and embolism V12.51 [place] [address] [id number] [address] [place] [id number] 28 Nov, 2014 Personal history of venous t hrombosis and embolism V12.51 [place] [address] [id number] [address] [place] [id number] 25 Nov, 2014 Personal history of venous t hrombosis and embolism V12.51 [place] [address] [id number] [address] [place] [address] 17 Nov, 2014 Personal history of venous t hrombosis and embolism V12.51 [place] [address] [id number] [address] [place] [address] 11 Nov, 2014 Personal history of venous t hrombosis and embolism V12.51 [place] [address] [id number] [address] [place] [address] Nov, [facility] [address] [id number] [address] [place] [address] Oct, Dysuria 788.1 [facility] [address] [id number] [address] [place] [address] Oct, Personal history of venous t hrombosis and embolism V12.51 [facility] [address] [id number] [address] [place] [address] Oct, [facility] [address] [id number] [address] [place] [address] Oct, Personal history of venous t hrombosis and embolism V12.51 [place] [address] [id number] [address] [place] [address] Sep, Personal history of venous t hrombosis and embolism V12.51 [place] [address] [id number] [address] [place] [address] Sep, Personal history of venous t hrombosis and embolism V12.51 [place] [address] [id number] [address] [place] [address] Aug, Personal history of venous t hrombosis and embolism V12.51 [place] [address] [id number] [address] [place] [address] Aug, Personal history of venous t hrombosis and embolism V12.51 [facility] [address] [id number] [address] [place] [address] Aug, Personal history of venous t hrombosis and embolism V12.51 [place] [address] [id number] [address] [place] [address] July, Generalized anxiety disorder 300.02 ; Abdominal pain, left lower quadrant 789.04 and Personal history of venous thrombosis and embolism V12.51 [place] [address] [id number] [address] [place] [address] Jun, [facility] [address] [id number] [address] [place] [address], [place] [address] Jun, [facility] [address] [id number] [address] [place] [address], [place] [address] May, [facility] [address] [id number] [address] [place] [address], [place] [address] May, [facility] [address] [id number] [address] [place] [address], [place] [address] May, [facility] [address] [id number] [address] [place] [address], [place] [address] May, [facility] [address] [id number] [address] [place] [address], [place] [address] May, [facility] [address] [id number] [address] [place] [address], [place] [address] May, [facility] [address] [id number] [address] [place] [address], [place] [address] May, [facility] [address] [id number] [address] [place] [address], [place] [address] May, [facility] [address] [id number] [address] [place] [address], [place] [address] Apr, [facility] [address] [id number] [address] [place] [address], [place] [address] Apr, [facility] [address] [id number] [address] [place] [address], [place] [address] Apr, [facility] [address] [id number] [address] [place] [address], [place] [address] Apr, [facility] [address] [id number] [address] [place] [address], [place] [address] Apr, [facility] [address] [id number] [address] [place] [address], [place] [address] Mar, [facility] [address] [id number] [address] [place] [address], [place] [address] Mar, [facility] [address] [id number] [address] [place] [address], [place] [address] Mar, [facility] [address] [id number] [address] [place] [address], [place] [address] Mar, [facility] [address] [id number] [address] [place] [address], [place] [address] Mar, [facility] [address] [id number] [address] [place] [address], [place] [address] Mar, [facility] [address] [id number] [address] [place] [address], [place] [address] Feb, [facility] [address] [id number] [address] [place] [address], [place] [address] Feb, [facility] [address] [id number] [address] [place] [address], [place] [address] Feb, [facility] [address] [id number] [address] [place] [address], [place] [address] Feb, [facility] [address] [id number] [address] [place] [address], [place] [address] Feb, [facility] [address] [id number] [address] [place] [address], [place] [address] Feb, [facility] [address] [id number] [address] [place] [address], [place] [address] Feb, [facility] [address] [id number] [address] [place] [address], [place] [address] Feb, [facility] [address] [id number] [address] [place] [address], [place] [address] Feb, [facility] [address] [id number] [address] [place] [address], [place] [address] Feb, [facility] [address] [id number] [address] [place] [address], [place] [address] Jan, [facility] [address] [id number] [address] [place] [address], [place] [address] Jan, [facility] [address] [id number] [address] [place] [address], [place] [address] Jan, [facility] [address] [id number] [address] [place] [address], [place] [address] Jan, [facility] [address] [id number] [address] [place] [address], [place] [address] Jan, [facility] [address] [id number] [address] [place] [address], [place] [address] Jan, [facility] [address] [id number] [address] [place] [address], [place] [address] Jan, [facility] [address] [id number] [address] [place] [address], [place] [address] Jan, [facility] [address] [id number] [address] [place] [address], [place] [address] Jan, [facility] [address] [id number] [address] [place] [address], [place] [address] Jan, [facility] [address] [id number] [address] [place] [address], [place] [address] Dec, [facility] [address] [id number] [address] [place] [address], [place] [address] Dec, [facility] [address] [id number] [address] [place] [address], [place] [address] Dec, [facility] [address] [id number] [address] [place] [address], [place] [address] Dec, [facility] [address] [id number] [address] [place] [address], [place] [address] Dec, [facility] [address] [id number] [address] [place] [address], [place] [address] Dec, [facility] [address] [id number] [address] [place] [address], [place] [address] Dec, [facility] [address] [id number] [address] [place] [address], [place] [address] Dec, [facility] [address] [id number] [address] [place] [address], [place] [address] Dec, [facility] [address] [id number] [address] [place] [address], [place] [address] Dec, [facility] [address] [id number] [address] [place] [address], [place] [address] Dec, [facility] [address] [id number] [address] [place] [address], [place] [address] Dec, [facility] [address] [id number] [address] [place] [address], [place] [address] Dec, [facility] [address] [id number] [address] [place] [address], [place] [address] Dec, [facility] [address] [id number] [address] [place] [address], [place] [address] Dec, [facility] [address] [id number] [address] [place] [address], [place] [address] 30 Nov, 2013 [facility] [address] [id number] [address] [place] [address], [place] [address] 30 Nov, 2013 [facility] [address] [id number] [address] [place] [address], [place] [address] 26 Nov, 2013 [facility] [address] [id number] [address] [place] [address], [place] [address] 26 Nov, 2013 [facility] [address] [id number] [address] [place] [address], [place] [address] 24 Nov, 2013 [facility] [address] [id number] [address] [place] [address], [place] [address] 24 Nov, 2013 [facility] [address] [id number] [address] [place] [address], [place] [address] 23 Nov, 2013 [facility] [address] [id number] [facility] [place] [address] 23 Nov, 2013 [facility] [address] [id number] [facility] [place] [address] 18 Nov, 2013 [facility] [address] [id number] [facility] [place] [address] 18 Nov, 2013 [facility] [address] [id number] [address] [place] [address], [place] [address] 17 Nov, 2013 [facility] [address] [id number] [address] [place] [address], [place] [address] 17 Nov, 2013 [facility] [address] [id number] [address] [place] [address], [place] [address] 11 Nov, 2013 [facility] [address] [id number] [address] [place] [address], [place] [address] 11 Nov, 2013 [facility] [address] [id number] [address] [place] [address], [place] [address] 10 Nov, 2013 [facility] [address] [id number] [address] [place] [address], [place] [address] 10 Nov, 2013 [facility] [address] [id number] [address] [place] [address], [place] [address] 08 Nov, 2013 [facility] [address] [id number] [address] [place] [address], [place] [address] 08 Nov, 2013 [facility] [address] [id number] [address] [place] [address], [place] [address] 22 Sep, 2013 [facility] [address] [id number] [address] [place] [address], [place] [address] 22 Sep, 2013 [facility] [address] [id number] [address] [place] [address], [place] [address] Sep, 2013 [facility] [address] [id number] [address] [place] [address], [place] [address] 11 Sep, 2013 [facility] [address] [id number] [address] [place] [address], [place] [address] Sep, [facility] [address] [id number] [address] [place] [address], [place] [address] Sep, [facility] [address] [id number] [address] [place] [address], [place] [address] Aug, [facility] [address] [id number] [address] [place] [address], [place] [address] Aug, [facility] [address] [id number] [address] [place] [address], [place] [address] Aug, [facility] [address] [id number] [address] [place] [address], [place] [address] Aug, [facility] [address] [id number] [address] [place] [address], [place] [address] Aug, [facility] [address] [id number] [address] [place] [address], [place] [address] Aug, [facility] [address] [id number] [address] [place] [address], [place] [address] Aug, [facility] [address] [id number] [address] [place] [address], [place] [address] Aug, [facility] [address] [id number] [address] [place] [address], [place] [address] Aug, [facility] [address] [id number] [address] [place] [address], [place] [address] Aug, [facility] [address] [id number] [address] [place] [address], [place] [address] Aug, [facility] [address] [id number] [address] [place] [address], [place] [address] July, [facility] [address] [id number] [address] [place] [address], [place] [address] July, [facility] [address] [id number] [address] [place] [address], [place] [address] Jun, [facility] [address] [id number] [address] [place] [address], [place] [address] Jun, [facility] [address] [id number] [address] [place] [address], [place] [address] 18 Jun, 2013 [facility] [address] [id number] [address] [place] [address], [place] [address] 18 Jun, 2013 [facility] [address] [id number] [address] [place] [address], [place] [address] Jun, [facility] [address] [id number] [address] [place] [address], [place] [address] 18 Jun, 2013 [facility] [address] [id number] [address] [place] [address], [place] [address] Jun, [facility] [address] [id number] [address] [place] [address], [place] [address] Jun, [facility] [address] [id number] [address] [place] [address], [place] [address] Jun, [facility] [address] [id number] [address] [place] [address], [place] [address] Jun, [facility] [address] [id number] [address] [place] [address], [place] [address] Jun, [facility] [address] [id number] [address] [place] [address], [place] [address] Jun, [facility] [address] [id number] [address] [place] [address], [place] [address] May, [facility] [address] [id number] [address] [place] [address], [place] [address] May, [facility] [address] [id number] [address] [place] [address], [place] [address] May, [facility] [address] [id number] [address] [place] [address], [place] [address] May, [facility] [address] [id number] [address] [place] [address], [place] [address] 19 May, 2013 [facility] [address] [id number] [address] [place] [address], [place] [address] May, [facility] [address] [id number] [address] [place] [address], [place] [address] May, [facility] [address] [id number] [address] [place] [address], [place] [address] May, [facility] [address] [id number] [address] [place] [address], [place] [address] May, [facility] [address] [id number] [address] [place] [address], [place] [address] May, [facility] [address] [id number] [address] [place] [address], [place] [address] May, [facility] [address] [id number] [address] [place] [address], [place] [address] May, [facility] [address] [id number] [address] [place] [address], [place] [address] Apr, [facility] [address] [id number] [address] [place] [address], [place] [address] Apr, [facility] [address] [id number] [address] [place] [address], [place] [address] Apr, [facility] [address] [id number] [address] [place] [address], [place] [address] Apr, [facility] [address] [id number] [address] [place] [address], [place] [address] Apr, [facility] [address] [id number] [address] [place] [address], [place] [address] Apr, [facility] [address] [id number] [address] [place] [address], [place] [address] Apr, [facility] [address] [id number] [address] [place] [address], [place] [address] Apr, [facility] [address] [id number] [address] [place] [address], [place] [address] Apr, 2013 [facility] [address] [id number] [address] [place] [address], [place] [address] Apr, [facility] [address] [id number] [address] [place] [address], [place] [address] Apr, 2013 [facility] [address] [id number] [address] [place] [address], [place] [address] Apr, 2013 [facility] [address] [id number] [address] [place] [address], [place] [address] Apr, [facility] [address] [id number] [address] [place] [address], [place] [address] Apr, [facility] [address] [id number] [address] [place] [address], [place] [address] Apr, [facility] [address] [id number] [address] [place] [address], [place] [address] Apr, [facility] [address] [id number] [address] [place] [address], [place] [address] 13 Apr, 2013 [facility] [address] [id number] [address] [place] [address], [place] [address] Jan, [facility] [address] [id number] [address] [place] [address], [place] [address] Jan, [facility] [address] [id number] [address] [place] [address], [place] [address] Jan, [facility] [address] [id number] [address] [place] [address], [place] [address] Jan, [facility] [address] [id number] [address] [place] [address], [place] [address] Jan, [facility] [address] [id number] [address] [place] [address], [place] [address] Jan, [facility] [address] [id number] [address] [place] [address], [place] [address] Jan, [facility] [address] [id number] [address] [place] [address], [place] [address] Dec, [facility] [address] [id number] [address] [place] [address], [place] [address] Dec, [facility] [address] [id number] [address] [place] [address], [place] [address] Dec, [facility] [address] [id number] [address] [place] [address], [place] [address] Nov, [facility] [address] [id number] [address] [place] [address], [place] [address] Nov, [facility] [address] [id number] [address] [place] [address], [place] [address] Nov, [facility] [address] [id number] [address] [place] [address], [place] [address] Nov, [facility] [address] [id number] [address] [place] [address], [place] [address] Oct, [facility] [address] [id number] [address] [place] [address], [place] [address] Oct, [facility] [address] [id number] [address] [place] [address], [place] [address] Oct, [facility] [address] [id number] [address] [place] [address], [place] [address] Oct, [facility] [address] [id number] [address] [place] [address], [place] [address] Oct, [facility] [address] [id number] [address] [place] [address], [place] [address] Sep, [facility] [address] [id number] [address] [place] [address], [place] [address] Sep, [facility] [address] [id number] [address] [place] [address], [place] [address] Sep, [facility] [address] [id number] [address] [place] [address], [place] [address] Sep, [facility] [address] [id number] [address] [place] [address], [place] [address] Sep, [facility] [address] [id number] [address] [place] [address], [place] [address] Sep, [facility] [address] [id number] [address] [place] [address], [place] [address] Sep, [facility] [address] [id number] [address] [place] [address], [place] [address] Aug, [facility] [address] [id number] [address] [place] [address], [place] [address] Aug, [facility] [address] [id number] [address] [place] [address], [place] [address] July, [facility] [address] [id number] [address] [place] [address], [place] [address] Jun, [facility] [address] [id number] [address] [place] [address], [place] [address] Jun, [facility] [address] [id number] [address] [place] [address], [place] [address] Jun, [facility] [address] [id number] [address] [place] [address], [place] [address] Apr, [facility] [address] [id number] [address] [place] [address], [place] [address] Apr, [facility] [address] [id number] [address] [place] [address], [place] [address] Apr, [facility] [address] [id number] [address] [place] [address], [place] [address] Mar, [facility] [address] [id number] [address] [place] [address], [place] [address] Mar, [facility] [address] [id number] [address] [place] [address], [place] [address] Mar, [facility] [address] [id number] [address] [place] [address], [place] [address] Mar, [facility] [address] [id number] [address] [place] [address], [place] [address] Mar, [facility] [address] [id number] [address] [place] [address], [place] [address] 14 Feb, 2012 [facility] [address] [id number] [address] [place] [address], [place] [address] 14 Feb, 2012 [facility] [address] [id number] [address] [place] [address], [place] [address] Jan, [facility] [address] [id number] [address] [place] [address], [place] [address] Jan, [facility] [address] [id number] [address] [place] [address], [place] [address] Jan, [facility] [address] [id number] [address] [place] [address], [place] [address] Jan, [facility] [address] [id number] [address] [place] [address], [place] [address] Jan, [facility] [address] [id number] [address] [place] [address], [place] [address] Jan, [facility] [address] [id number] [address] [place] [address], [place] [address] Jan, [facility] [address] [id number] [address] [place] [address], [place] [address] Dec, [facility] [address] [id number] [address] [place] [address], [place] [address] Dec, [facility] [address] [id number] [address] [place] [address], [place] [address] Dec, [facility] [address] [id number] [address] [place] [address], [place] [address] Dec, [facility] [address] [id number] [address] [place] [address], [place] [address] Dec, [facility] [address] [id number] [address] [place] [address], [place] [address] Dec, [facility] [address] [id number] [address] [place] [address], [place] [address] Dec, [facility] [address] [id number] [address] [place] [address], [place] [address] Dec, [facility] [address] [id number] [address] [place] [address], [place] [address] Dec, [facility] [address] [id number] [address] [place] [address], [place] [address] Dec, [facility] [address] [id number] [address] [place] [address], [place] [address] Oct, [facility] [address] [id number] [address] [place] [address], [place] [address] Oct, [facility] [address] [id number] [address] [place] [address], [place] [address] Aug, [facility] [address] [id number] [address] [place] [address], [place] [address] Aug, [facility] [address] [id number] [address] [place] [address], [place] [address] July, [facility] [address] [id number] [address] [place] [address], [place] [address] Jun, [facility] [address] [id number] [address] [place] [address], [place] [address] Jun, [facility] [address] [id number] [address] [place] [address], [place] [address] May, [facility] [address] [id number] [address] [place] [address], [place] [address] Apr, [facility] [address] [id number] [address] [place] [address], [place] [address] Apr, [facility] [address] [id number] [address] [place] [address], [place] [address] 19 Mar, 2011 [facility] [address] [id number] [address] [place] [address], [place] [address] 16 Mar, 2011 [facility] [address] [id number] [address] [place] [address], [place] [address] 19 Feb, 2011 [facility] [address] [id number] [address] [place] [address], [place] [address] 15 Feb, 2011 [facility] [address] [id number] [address] [place] [address], [place] [address] 13 Feb, 2011 [facility] [address] [id number] [address] [place] [address], [place] [address] 13 Feb, 2011 [facility] [address] [id number] [address] [place] [address], [place] [address] Jan, [facility] [address] [id number] [address] [place] [address], [place] [address] 17 Dec, 2010 [facility] [address] [id number] [address] [place] [address], [place] [address] 08 Feb, 2010 [facility] [address] [id number] [address] [place] [address], [place] [address] Feb, [facility] [address] [id number] [address] [place] [address], [place] [address] Feb, [facility] [address] [id number] [address] [place] [address], [place] [address] Feb, [facility] [address] [id number] [address] [place] [address], [place] [address] 15 Dec, 2009 [facility] [address] [id number] [address] [place] [address], [place] [address] 15 Dec, 2009 [facility] [address] [id number] [address] [place] [address], [place] [address] Oct, [facility] [address] [id number] [address] [place] [address], [place] [address] Jun, [facility] [address] [facility] [id number] [address] [place] [id number] Feb, [facility] [address] [facility] [id number] [address] [place] [id number] Feb, [facility] [address] [facility] [id number] [address] [place] [address] Feb, [facility] [address] [facility] [id number] [address] [place] [address] Dec, IMMUNIZATIONS No Known Immunizations SOCIAL HISTORY Never Assessed REASON FOR VISIT PLAN OF CARE VITAL SIGNS MEDICATIONS Unknown Medications RESULTS No Results PROCEDURES Procedure Date Ordered Result Body Site PROTHROMBIN TIME Feb 08, 2014 INSTRUCTIONS MEDICATIONS ADMINISTERED No Known Medications MEDICAL (GENERAL) HISTORY Type Description Date Medical History obesity Medical History Hematologic disorder factor clotting pro blem Medical History DVT's Medical History Torn Rotator Cuff, repaired 09/23/17 Surgical History Lap Band 10/2012 Surgical History section 1985, 1987 Surgical History cholecystectomy Surgical History [employer] 06/2009 Surgical History Left leg exploratory surgery r/t clot Surgical History left shoulder surgery 09/14/17 Surgical History lap band removed 12/2017 Surgical History gastic sleeve 01/2018 Surgical History Back surgery 2019 Hospitalization History Ruptured Ovarian Cyst with abd bleed ing 11/2009 Hospitalization History Broken Back 06/2018
--- OUTSIDE RECORDS SUMMARY | 2019-10-19 12:32 | XMS REPORT ---
Author Author KIANAMary Jane Organization [facility] Address [address] [place] [address] Care Team Providers Care Brand Sales Manager Name Role Phone ASHLEY BRUNO Unavailable PROBLEMS Type Condition ICD9-CM Code [id number] Code Onset Dates Condition S tatus SNOMED Code Problem Thyroid follicular adenoma D34 Act phylicia 505635321 Problem History of DVT (deep vein thrombosis) Z86.718 Active 393333854 Problem Factor V Leiden D68.51 Active 3070 66215 Problem terminal gauger (current) use of anticoagulants Z79.01 Active 463647088 Problem Hypertriglyceridemia E78.1 Active 720001606 Problem 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 Active 250418023 Problem Pelvic pain R10.2 Active 40084521 Problem Peripheral edema R60.9 Active 271 349278 Problem Moderate episode of recurrent major depressive disorder F33.1 Active 276911343 Problem Presence of IVC filter Z95.828 Active 126485250 Problem Vitamin D deficiency E55.9 Active 64949401 Problem Generalized anxiety disorder F41.1 A ctive 609266275 Problem Excessive daytime sleepiness G47.19 A ctive [id number] Problem Gastroesophageal reflux disease, esophagitis pre sence not specified K21.9 Active 403729850 Problem Thyroid nodule E04.1 Active 64333 5005 Problem Morbid obesity E66.01 Active 13209 6002 ALLERGIES No Information ENCOUNTERS Encounter Location Date Diagnosis [facility] [address] [facility] [id number] [address] [place] [phone] Oct, Syncope, unspecified syncope type R55 [facility] [address] [facility] [id number] [address] [place] [phone] Oct, Morbid obesity E66.01 [facility] [address] [facility] [id number] [address] [place] [address] Oct, Hypertriglyceridemia E78.1 [facility] [address] [id number] [address] [place] [address] Oct, [facility] [address] [id number] [address] [place] [phone] Oct, Hypertriglyceridemia E78.1 [facility] [address] [facility] [id number] [address] [place] [phone] Sep, Hypertriglyceridemia E78.1 a nd Vitamin D deficiency E55.9 [facility] [address] [id number] [address] [place] [address] Sep, [facility] [address] [id number] [address] [place] [address] Sep, Morbid obesity E66.01 ; Mode rate episode of recurrent major depressive disorder F33.1 ; Hypertriglyceridemia E78.1 and Vitamin D deficiency E55.9 [facility] [address] [facility] [id number] [address] [place] [id number] Aug, [facility] [address] [id number] [address] [place] [phone] July, [facility] [address] [id number] [address] [place] [phone] July, [facility] [address] [facility] [id number] [address] [place] [id number] Jun, [facility] [address] [id number] [address] [place] [id number] Jun, [facility] [address] [facility] [id number] [address] [place] [phone] Jun, Closed compression fracture of L3 lumbar vertebra with routine healing, subsequent encounter S32.030D and Drug-induced constipation K59.03 [facility] [address] [id number] [address] [place] [address] Jun, [facility] [address] [facility] [id number] [address] [place] [phone] Jun, [facility] [address] [facility] [id number] [address] [place] [phone] Apr, [facility] [address] [facility] [id number] [place] [phone] 18 Apr, 2018 Morbid obesity E66.01 [facility] [address] [facility] [id number] [address] [place] [phone] 12 Apr, 2018 Morbid obesity E66.01 ; Hype rtriglyceridemia E78.1 ; Gastroesophageal reflux disease, esophagitis presence not specified K21.9 and Joint pain M25.50 [facility] [address] [facility] [id number] [address] [place] [phone] Feb, [facility] [address] [facility] [id number] [place] [phone] Feb, [facility] [address] [facility] [id number] [address] [place] [address] Jan, Acute bacterial conjunctivit is H10.30 [facility] [address] [facility] [id number] [address] [place] [phone] 08 Dec, 2017 [facility] [address] [facility] [id number] [place] [phone] 04 Dec, 2017 [facility] [address] [place] [id number] [address] [place] [phone] 17 Nov, 2017 [facility] [address] [place] [id number] [address] [place] [phone] 07 Nov, 2017 Obstructive sleep apnea G47. 33 ; Morbid obesity E66.01 and Gastroesophageal reflux disease, esophagitis presence not specified K21.9 [facility] [address] [id number] [address] [place] [id number] 06 Nov, 2017 Encounter for examination of eyes and vision without abnormal findings Z01.00 [facility] [address] [facility] [id number] [address] [place] [phone] 31 Oct, 2017 Thyroid nodule E04.1 and Scr eening for breast cancer Z12.31 [facility] [address] [id number] [address] [place] [address] Oct, History of DVT (deep vein th rombosis) Z86.718 ; Thyroid nodule E04.1 and Gastroesophageal reflux disease, esophagitis presence not specified K21.9 [place] [address] [id number] [address] [place] [address] Oct, [place] [address] [id number] [address] [place] [address] Sep, [place] [address] [id number] [address] [place] [id number] Aug, [place] [address] [id number] [address] [place] [address] Aug, [place] [address] [id number] [address] [place] [address] Aug, Acute pain of left shoulder M25.512 and Thyroid nodule E04.1 [place] [address] [id number] [address] [place] [address] July, Superior glenoid labrum lesi on of left shoulder, subsequent encounter S43.432D [place] [address] [id number] [address] [place] [address] Jun, History of DVT (deep vein th rombosis) Z86.718 [place] [address] [id number] [address] [place] [address] Jun, History of DVT (deep vein th rombosis) Z86.718 [place] [address] [id number] [address] [place] [address] Jun, Impingement syndrome, should er, left M75.42 [place] [address] [id number] [address] [place] [address] May, Subacromial bursitis of left shoulder joint M75.52 [place] [address] [facility] [id number] [address] [place] [phone] May, [facility] [address] [id number] [address] [place] [address] May, Hypertriglyceridemia E78.1 ; terminal gauger (current) use of anticoagulants Z79.01 and Excessive daytime sleepiness G47.19 [facility] [address] [id number] [address] [place] [address] May, History of DVT (deep vein th rombosis) Z86.718 ; Generalized anxiety disorder F41.1 ; Hypertriglyceridemia E78.1 ; senior care (current) use of anticoagulants Z79.01 ; Subacromial bursitis of left shoulder joint M75.52 and Excessive daytime sleepiness G47.19 [place] [address] [id number] [address] [place] [address] May, [place] [address] [id number] [address] [place] [address] May, terminal gauger (current) use of a nticoagulants Z79.01 [place] [address] [id number] [address] [place] [address] Apr, senior care (current) use of a nticoagulants Z79.01 [place] [address] [id number] [address] [place] [address] Apr, senior care (current) use of a nticoagulants Z79.01 [place] [address] [id number] [address] [place] [phone] Apr, terminal gauger (current) use of a nticoagulants Z79.01 [place] [address] [id number] [address] [place] [address] Apr, [facility] [address] [id number] [address] [place] [address] Apr, senior care (current) use of a nticoagulants Z79.01 [place] [address] [id number] [address] [place] [address] 13 Apr, 2017 terminal gauger (current) use of a nticoagulants Z79.01 [facility] [address] [id number] [address] [place] [address] Apr, senior care (current) use of a nticoagulants Z79.01 [facility] [address] [id number] [address] [place] [phone] Apr, senior care (current) use of a nticoagulants Z79.01 [facility] [address] [id number] [address] [place] [address] Apr, terminal gauger (current) use of a nticoagulants Z79.01 [facility] [address] [id number] [address] [place] [address] Apr, terminal gauger (current) use of a nticoagulants Z79.01 [facility] [address] [id number] [address] [place] [address] Mar, terminal gauger (current) use of a nticoagulants Z79.01 [facility] [address] [id number] [address] [place] [phone] Mar, [facility] [address] [id number] [address] [place] [address] Mar, senior care (current) use of a nticoagulants Z79.01 [facility] [address] [id number] [address] [place] [id number] Jan, Dental examination Z01.20 [facility] [address] [id number] [address] [place] [id number] Jan, [facility] [address] [id number] [address] [place] [phone] Jan, senior care (current) use of a nticoagulants Z79.01 [facility] [address] [id number] [address] [place] [address] Jan, History of DVT (deep vein th rombosis) Z86.718 [facility] [address] [id number] [address] [place] [address] Jan, Generalized anxiety disorder F41.1 and Peripheral edema R60.9 [facility] [address] [id number] [address] [place] [phone] Nov, History of DVT (deep vein th rombosis) Z86.718 [facility] [address] [id number] [address] [place] [address] Nov, terminal gauger (current) use of a nticoagulants Z79.01 [facility] [address] [id number] [address] [place] [address] Nov, Acute non-recurrent maxillar y sinusitis J01.00 [facility] [address] [id number] [address] [place] [address] Oct, senior care (current) use of a nticoagulants Z79.01 [facility] [address] [id number] [address] [place] [address] Oct, Personal history of venous t hrombosis and embolism Z86.718 [facility] [address] [id number] [address] [place] [address] Sep, [facility] [address] [id number] [address] [place] [address] Sep, Personal history of venous t hrombosis and embolism Z86.718 [facility] [address] [id number] [address] [place] [address] Sep, senior care (current) use of a nticoagulants Z79.01 [facility] [address] [id number] [address] [place] [address] Sep, terminal gauger (current) use of a nticoagulants Z79.01 [facility] [address] [id number] [address] [place] [address] Sep, Generalized anxiety disorder F41.1 and History of DVT (deep vein thrombosis) Z86.718 [place] [address] [address] Aug, History of DVT (deep vein th rombosis) Z86.718 ; Generalized anxiety disorder F41.1 ; terminal gauger (current) use of anticoagulants Z79.01 ; Pelvic pain R10.2 ; Hypertriglyceridemia E78.1 ; Excessive daytime sleepiness G47.19 ; Colon cancer screening Z12.11 ; Screening for breast cancer Z12.39 ; Peripheral edema R60.9 and Gastroesophageal reflux disease, esophagitis presence not specified K21.9 [place] [address] [address] Aug, [place] [address] [address] July, [place] [address] [address] July, History of DVT (deep vein th rombosis) Z86.718 [place] [address] [address] Jun, Generalized anxiety disorder F41.1 [place] [address] [address] Jun, History of DVT (deep vein th rombosis) Z86.718 [place] [address] [address] Jun, History of DVT (deep vein th rombosis) Z86.718 [place] [address] [address] Jun, History of DVT (deep vein th rombosis) Z86.718 [place] [address] [address] Jun, History of DVT (deep vein th rombosis) Z86.718 [facility] [address] [id number] [address] [place] [address] May, History of DVT (deep vein th rombosis) Z86.718 [facility] [address] [id number] [address] [place] [address] May, senior care (current) use of a nticoagulants Z79.01 [facility] [address] [facility] [id number] [address] [place] [address] May, terminal gauger (current) use of a nticoagulants Z79.01 [facility] [address] [id number] [address] [place] [address] May, History of DVT (deep vein th rombosis) Z86.718 [facility] [address] [id number] [address] [place] [address] 27 Apr, 2016 Bacterial conjunctivitis of left eye H10.9 and H/O motion sickness Z87.898 [facility] [address] [id number] [address] [place] [address] 24 Apr, 2016 History of DVT (deep vein th rombosis) Z86.718 [facility] [address] [id number] [address] [place] [address] 23 Apr, 2016 History of DVT (deep vein th rombosis) Z86.718 [facility] [address] [id number] [address] [place] [address] 15 Apr, 2016 History of DVT (deep vein th rombosis) Z86.718 [facility] [address] [id number] [address] [place] [id number] 14 Apr, 2016 terminal gauger (current) use of a nticoagulants Z79.01 [facility] [address] [id number] [address] [place] [address] Mar, [facility] [address] [facility] [id number] [address] [place] [address] Mar, senior care (current) use of a nticoagulants Z79.01 [facility] [address] [id number] [address] [place] [address] Mar, Hypertriglyceridemia E78.1 a nd terminal gauger (current) use of anticoagulants Z79.01 [facility] [address] [id number] [address] [place] [address] Feb, senior care (current) use of a nticoagulants Z79.01 [facility] [address] [id number] [address] [place] [address] Feb, senior care (current) use of a nticoagulants Z79.01 [facility] [address] [id number] [address] [place] [address] Feb, terminal gauger (current) use of a nticoagulants Z79.01 [facility] [address] [id number] [address] [place] [address] Dec, [facility] [address] [id number] [address] [place] [address] Nov, [facility] [address] [facility] [id number] [address] [place] [address] Nov, History of DVT (deep vein th rombosis) Z86.718 ; Tremulousness R25.1 ; Generalized anxiety disorder F41.1 ; Peripheral edema R60.9 and Hypertriglyceridemia E78.1 [facility] [address] [id number] [address] [place] [address] Oct, History of DVT (deep vein th rombosis) Z86.718 [facility] [address] [id number] [address] [place] [address] Oct, [facility] [address] [facility] [id number] [address] [place] [address] Sep, History of DVT (deep vein th rombosis) Z86.718 [place] [address] [id number] [address] [place] [address] Sep, terminal gauger (current) use of a nticoagulants Z79.01 [facility] [address] [id number] [address] [place] [address] July, [facility] [address] [facility] [id number] [address] [place] [address] July, terminal gauger (current) use of a nticoagulants Z79.01 [place] [address] [id number] [address] [place] [address] July, terminal gauger (current) use of a nticoagulants Z79.01 [place] [address] [facility] [id number] [address] [place] [address] Jun, senior care (current) use of a nticoagulants Z79.[address] [facility] [place] [address] [facility] [id number] [address] [place] [address] Jun, Coccyx pain M53.3 ; Encounte r for therapeutic drug level monitoring Z51.81 and terminal gauger current use 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.01 [place] [address] [facility] [id number] [address] [place] [address] May, Abnormal mammogram R92.8 [facility] [place] [address] [facility] [id number] [address] [place] [address] May, [facility] [place] [address] [facility] [id number] [address] [place] [address] May, Acute vaginitis N76.0 and En counter for other screening for malignant neoplasm of breast Z12.39 [place] [address] [facility] [id number] [address] [place] [address] Apr, [place] [address] [facility] [id number] [address] [place] [address] Apr, [place] [address] [facility] [id number] [address] [place] [address] Apr, Peripheral edema R60.9 [facility] [address] [id number] [address] [place] [address] Apr, terminal gauger (current) use of a nticoagulants Z79.01 [facility] [address] [id number] [address] [place] [address] Apr, Peripheral edema R60.9 and L jose martin term (current) 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 Z79.01 [facility] [address] [id number] [address] [place] [address] Apr, terminal gauger (current) use of a nticoagulants Z79.01 [facility] [address] [id number] [address] [place] [address] Apr, [facility] [address] [id number] [address] [place] [address] Apr, terminal gauger (current) use of a nticoagulants Z79.01 [facility] [address] [id number] [address] [place] [address] Apr, Peripheral edema R60.9 [facility] [address] [id number] [address] [place] [address] Mar, terminal gauger (current) use of a nticoagulants Z79.01 [facility] [address] [id number] [address] [place] [address] Mar, terminal gauger (current) use of a nticoagulants Z79.01 and Hypertriglyceridemia E78.1 [facility] [address] [id number] [address] [place] [address] Mar, senior care (current) use of a nticoagulants Z79.01 [facility] [address] [id number] [address] [place] [address] Mar, senior care (current) use of a nticoagulants Z79.01 [facility] [address] [id number] [address] [place] [address] Mar, [facility] [address] [id number] [address] [place] [address] Mar, senior care (current) use of a nticoagulants Z79.01 ; Hypertriglyceridemia E78.1 ; Personal history of venous thrombosis and embolism Z86.718 and Lump R22.9 [place] [address] [id number] [address] [place] [phone] Mar, Personal history of venous t hrombosis and embolism Z86.718 [place] [address] [id number] [address] [place] [phone] Mar, Personal history of venous t hrombosis and embolism Z86.718 [place] [address] [id number] [address] [place] [phone] Mar, [place] [address] [id number] [address] [place] [phone] Dec, Personal history of venous t hrombosis and embolism Z86.718 [place] [address] [id number] [address] [place] [id number] Dec, Personal history of venous t hrombosis and embolism V12.51 [place] [address] [id number] [address] [place] [phone] 28 Nov, 2014 Personal history of venous t hrombosis and embolism V12.51 [place] [address] [id number] [address] [place] [phone] 25 Nov, 2014 Personal history of venous t hrombosis and embolism V12.51 [place] [address] [id number] [address] [place] [phone] 17 Nov, 2014 Personal history of venous t hrombosis and embolism V12.51 [place] [address] [id number] [address] [place] [phone] 11 Nov, 2014 Personal history of venous t hrombosis and embolism V12.51 [place] [address] [id number] [address] [place] [phone] Nov, [facility] [address] [id number] [address] [place] [phone] Oct, Dysuria 788.1 [facility] [address] [id number] [address] [place] [phone] Oct, Personal history of venous t hrombosis and embolism V12.51 [facility] [address] [id number] [address] [place] [phone] Oct, [facility] [address] [id number] [address] [place] [phone] Oct, Personal history of venous t hrombosis and embolism V12.51 [place] [address] [id number] [address] [place] [phone] Sep, Personal history of venous t hrombosis and embolism V12.51 [place] [address] [id number] [address] [place] [address] Sep, Personal history of venous t hrombosis and embolism V12.51 [place] [address] [id number] [address] [place] [address] Aug, Personal history of venous t hrombosis and embolism V12.51 [place] [address] [id number] [address] [place] [address] Aug, Personal history of venous t hrombosis and embolism V12.51 [facility] [address] [id number] [address] [place] [address] 15 Aug, 2014 Personal history of venous t hrombosis and embolism V12.51 [place] [address] [id number] [address] [place] [address] July, Generalized anxiety disorder 300.02 ; Abdominal pain, left lower quadrant 789.04 and Personal history of venous thrombosis and embolism V12.51 [place] [address] [id number] [address] [place] [address] 14 Jun, 2014 [facility] [address] [id number] [address] [place] [address], [place] [address] Jun, [facility] [address] [id number] [address] [place] [address], [place] [address] May, [facility] [address] [id number] [address] [place] [address], [place] [address] May, [facility] [address] [id number] [address] [place] [address], [place] [address] May, [facility] [address] [id number] [address] [place] [address], [place] [address] May, [facility] [address] [id number] [address] [place] [address], [place] [address] May, [facility] [address] [id number] [address] [place] [address], [place] [address] May, [facility] [address] [id number] [address] [place] [address], [place] [address] May, [facility] [address] [id number] [address] [place] [address], [place] [address] May, [facility] [address] [id number] [address] [place] [address], [place] [address] Apr, [facility] [address] [id number] [address] [place] [address], [place] [address] Apr, [facility] [address] [id number] [address] [place] [address], [place] [address] Apr, [facility] [address] [id number] [address] [place] [address], [place] [address] Apr, [facility] [address] [id number] [address] [place] [address], [place] [address] Apr, [facility] [address] [id number] [address] [place] [address], [place] [address] Mar, [facility] [address] [id number] [address] [place] [address], [place] [address] Mar, [facility] [address] [id number] [address] [place] [address], [place] [address] Mar, [facility] [address] [id number] [address] [place] [address], [place] [address] Mar, [facility] [address] [id number] [address] [place] [address], [place] [address] Mar, [facility] [address] [id number] [address] [place] [address], [place] [address] Mar, [facility] [address] [id number] [address] [place] [address], [place] [address] Feb, [facility] [address] [id number] [address] [place] [address], [place] [address] Feb, [facility] [address] [id number] [address] [place] [address], [place] [address] Feb, [facility] [address] [id number] [address] [place] [address], [place] [address] Feb, [facility] [address] [id number] [address] [place] [address], [place] [address] Feb, [facility] [address] [id number] [address] [place] [address], [place] [address] Feb, [facility] [address] [id number] [address] [place] [address], [place] [address] Feb, [facility] [address] [id number] [address] [place] [address], [place] [address] Feb, [facility] [address] [id number] [address] [place] [address], [place] [address] Feb, [facility] [address] [id number] [address] [place] [address], [place] [address] Feb, [facility] [address] [id number] [address] [place] [address], [place] [address] Jan, [facility] [address] [id number] [address] [place] [address], [place] [address] Jan, [facility] [address] [id number] [address] [place] [address], [place] [address] Jan, [facility] [address] [id number] [address] [place] [address], [place] [address] Jan, [facility] [address] [id number] [address] [place] [address], [place] [address] Jan, [facility] [address] [id number] [address] [place] [address], [place] [address] Jan, [facility] [address] [id number] [address] [place] [address], [place] [address] Jan, [facility] [address] [id number] [address] [place] [address], [place] [address] Jan, [facility] [address] [id number] [address] [place] [address], [place] [address] Jan, [facility] [address] [id number] [address] [place] [address], [place] [address] Jan, [facility] [address] [id number] [address] [place] [address], [place] [address] Dec, [facility] [address] [id number] [address] [place] [address], [place] [address] Dec, [facility] [address] [id number] [address] [place] [address] Dec, [facility] [address] [id number] [address] [place] [address], [place] [address] Dec, [facility] [address] [id number] [address] [place] [address], [place] [address] Dec, [facility] [address] [id number] [address] [place] [address], [place] [address] Dec, [facility] [address] [id number] [address] [place] [address], [place] [address] Dec, [facility] [address] [id number] [address] [place] [address], [place] [address] Dec, [facility] [address] [id number] [address] [place] [address], [place] [address] Dec, [facility] [address] [id number] [address] [place] [address], [place] [address] Dec, [facility] [address] [id number] [address] [place] [address], [place] [address] Dec, [facility] [address] [id number] [address] [place] [address], [place] [address] Dec, [facility] [address] [id number] [address] [place] [address], [place] [address] Dec, [facility] [address] [id number] [address] [place] [address], [place] [address] Dec, [facility] [address] [id number] [address] [place] [address], [place] [address] Dec, [facility] [address] [id number] [address] [place] [address], [place] [address] 30 Nov, 2013 [facility] [address] [id number] [address] [place] [address], [place] [address] 30 Sep, 2013 [facility] [address] [id number] [address] [place] [address], [place] [address] 26 Sep, 2013 [facility] [address] [id number] [address] [place] [address], [place] [address] 26 Sep, 2013 [facility] [address] [id number] [address] [place] [address], [place] [address] 24 Nov, 2013 [facility] [address] [id number] [address] [place] [address], [place] [address] 24 Nov, 2013 [facility] [address] [id number] [address] [place] [address], [place] [address] 23 Nov, 2013 [facility] [address] [id number] [facility] [place] [address] 23 Nov, 2013 [facility] [address] [id number] [facility] [place] [address] 18 Nov, 2013 [facility] [address] [id number] [facility] [place] [address] 18 Nov, 2013 [facility] [address] [id number] [facility] [place] [address] 17 Nov, 2013 [facility] [address] [id number] [facility] [place] [address] 17 Nov, 2013 [facility] [address] [id number] [address] [place] [address], [place] [address] 11 Nov, 2013 [facility] [address] [id number] [address] [place] [address], [place] [address] 11 Nov, 2013 [facility] [address] [id number] [address] [place] [address], [place] [address] 10 Nov, 2013 [facility] [address] [id number] [address] [place] [address], [place] [address] 10 Nov, 2013 [facility] [address] [id number] [address] [place] [address], [place] [address] 08 Nov, 2013 [facility] [address] [id number] [address] [place] [address], [place] [address] 08 Nov, 2013 [facility] [address] [id number] [address] [place] [address], [place] [address] Sep, 2013 [facility] [address] [id number] [address] [place] [address], [place] [address] Sep, 2013 [facility] [address] [id number] [address] [place] [address], [place] [address] Sep, 2013 [facility] [address] [id number] [address] [place] [address], [place] [address] Sep, 2013 [facility] [address] [id number] [address] [place] [address], [place] [address] Sep, [facility] [address] [id number] [facility] [place] [address] Sep, [facility] [address] [id number] [address] [place] [address], [place] [address] Aug, [facility] [address] [id number] [address] [place] [address], [place] [address] Aug, [facility] [address] [id number] [address] [place] [address], [place] [address] Aug, [facility] [address] [id number] [address] [place] [address], [place] [address] Aug, [facility] [address] [id number] [address] [place] [address], [place] [address] Aug, [facility] [address] [id number] [address] [place] [address], [place] [address] Aug, [facility] [address] [id number] [address] [place] [address], [place] [address] Aug, [facility] [address] [id number] [address] [place] [address], [place] [address] Aug, [facility] [address] [id number] [address] [place] [address], [place] [address] Aug, [facility] [address] [id number] [address] [place] [address], [place] [address] Aug, [facility] [address] [id number] [address] [place] [address], [place] [address] Aug, [facility] [address] [id number] [address] [place] [address], [place] [address] July, [facility] [address] [id number] [address] [place] [address], [place] [address] July, [facility] [address] [id number] [address] [place] [address], [place] [address] Jun, [facility] [address] [id number] [facility] [place] [address] 25 Jun, 2013 [facility] [address] [id number] [address] [place] [address], [place] [address] 18 Jun, 2013 [facility] [address] [id number] [address] [place] [address], [place] [address] 18 Jun, 2013 [facility] [address] [id number] [address] [place] [address], [place] [address] Jun, [facility] [address] [id number] [address] [place] [address], [place] [address] 18 Jun, 2013 [facility] [address] [id number] [address] [place] [address], [place] [address] Jun, [facility] [address] [id number] [address] [place] [address], [place] [address] Jun, [facility] [address] [id number] [address] [place] [address], [place] [address] Jun, [facility] [address] [id number] [address] [place] [address], [place] [address] Jun, [facility] [address] [id number] [address] [place] [address], [place] [address] Jun, [facility] [address] [id number] [address] [place] [address], [place] [address] Jun, [facility] [address] [id number] [address] [place] [address], [place] [address] May, [facility] [address] [id number] [address] [place] [address], [place] [address] May, [facility] [address] [id number] [address] [place] [address], [place] [address] May, [facility] [address] [id number] [address] [place] [address], [place] [address] May, [facility] [address] [id number] [address] [place] [address], [place] [address] May, [facility] [address] [id number] [address] [place] [address], [place] [address] May, [facility] [address] [id number] [address] [place] [address], [place] [address] May, [facility] [address] [id number] [address] [place] [address], [place] [address] May, [facility] [address] [id number] [address] [place] [address], [place] [address] May, [facility] [address] [id number] [address] [place] [address], [place] [address] May, [facility] [address] [id number] [address] [place] [address], [place] [address] May, [facility] [address] [id number] [address] [place] [address], [place] [address] May, [facility] [address] [id number] [address] [place] [address], [place] [address] Apr, [facility] [address] [id number] [address] [place] [address], [place] [address] Apr, [facility] [address] [id number] [address] [place] [address], [place] [address] Apr, [facility] [address] [id number] [address] [place] [address], [place] [address] Apr, [facility] [address] [id number] [address] [place] [address], [place] [address] Apr, [facility] [address] [id number] [address] [place] [address], [place] [address] Apr, [facility] [address] [id number] [address] [place] [address], [place] [address] Apr, [facility] [address] [id number] [address] [place] [address], [place] [address] Apr, [facility] [address] [id number] [address] [place] [address], [place] [address] Apr, [facility] [address] [id number] [address] [place] [address], [place] [address] Apr, [facility] [address] [id number] [address] [place] [address], [place] [address] Apr, [facility] [address] [id number] [address] [place] [address], [place] [address] Apr, 2013 [facility] [address] [id number] [address] [place] [address], [place] [address] Apr, [facility] [address] [id number] [address] [place] [address], [place] [address] Apr, [facility] [address] [id number] [address] [place] [address], [place] [address] Apr, [facility] [address] [id number] [address] [place] [address], [place] [address] Apr, [facility] [address] [id number] [address] [place] [address], [place] [address] Apr, [facility] [address] [id number] [address] [place] [address], [place] [address] Jan, [facility] [address] [id number] [address] [place] [address], [place] [address] Jan, [facility] [address] [id number] [address] [place] [address], [place] [address] 08 Jan, 2013 [facility] [address] [id number] [address] [place] [address], [place] [address] Jan, [facility] [address] [id number] [address] [place] [address], [place] [address] Jan, [facility] [address] [id number] [address] [place] [address], [place] [address] 07 Jan, 2013 [facility] [address] [id number] [address] [place] [address], [place] [address] Jan, [facility] [address] [id number] [address] [place] [address], [place] [address] Dec, [facility] [address] [id number] [address] [place] [address], [place] [address] Dec, [facility] [address] [id number] [address] [place] [address], [place] [address] Dec, [facility] [address] [id number] [address] [place] [address], [place] [address] Nov, [facility] [address] [id number] [address] [place] [address], [place] [address] Nov, [facility] [address] [id number] [address] [place] [address], [place] [address] Nov, [facility] [address] [id number] [address] [place] [address], [place] [address] Nov, [facility] [address] [id number] [address] [place] [address], [place] [address] Oct, [facility] [address] [id number] [address] [place] [address], [place] [address] Oct, [facility] [address] [id number] [address] [place] [address], [place] [address] Oct, [facility] [address] [id number] [address] [place] [address], [place] [address] Oct, [facility] [address] [id number] [address] [place] [address], [place] [address] Oct, [facility] [address] [id number] [address] [place] [address], [place] [address] Sep, [facility] [address] [id number] [address] [place] [address], [place] [address] Sep, [facility] [address] [id number] [address] [place] [address], [place] [address] Sep, [facility] [address] [id number] [address] [place] [address], [place] [address] Sep, [facility] [address] [id number] [address] [place] [address], [place] [address] Sep, [facility] [address] [id number] [address] [place] [address], [place] [address] Sep, [facility] [address] [id number] [address] [place] [address], [place] [address] Sep, [facility] [address] [id number] [address] [place] [address], [place] [address] Aug, [facility] [address] [id number] [address] [place] [address], [place] [address] Aug, [facility] [address] [id number] [address] [place] [address], [place] [address] July, [facility] [address] [id number] [address] [place] [address], [place] [address] Jun, [facility] [address] [id number] [address] [place] [address], [place] [address] Jun, [facility] [address] [id number] [address] [place] [address], [place] [address] Jun, [facility] [address] [id number] [address] [place] [address], [place] [address] Apr, [facility] [address] [id number] [address] [place] [address], [place] [address] Apr, [facility] [address] [id number] [address] [place] [address], [place] [address] Apr, [facility] [address] [id number] [address] [place] [address], [place] [address] Mar, [facility] [address] [id number] [address] [place] [address], [place] [address] Mar, [facility] [address] [id number] [address] [place] [address], [place] [address] Mar, [facility] [address] [id number] [address] [place] [address], [place] [address] 09 Mar, 2012 [facility] [address] [id number] [address] [place] [address], [place] [address] Mar, [facility] [address] [id number] [address] [place] [address], [place] [address] 14 Feb, 2012 [facility] [address] [id number] [address] [place] [address], [place] [address] 14 Feb, 2012 [facility] [address] [id number] [address] [place] [address], [place] [address] Jan, [facility] [address] [id number] [address] [place] [address], [place] [address] 13 Jan, 2012 [facility] [address] [id number] [address] [place] [address], [place] [address] Jan, [facility] [address] [id number] [address] [place] [address], [place] [address] Jan, [facility] [address] [id number] [address] [place] [address], [place] [address] Jan, [facility] [address] [id number] [address] [place] [address], [place] [address] Jan, [facility] [address] [id number] [address] [place] [address], [place] [address] Jan, [facility] [address] [id number] [address] [place] [address] Dec, [facility] [address] [id number] [address] [place] [address], [place] [address] Dec, [facility] [address] [id number] [address] [place] [address], [place] [address] Dec, [facility] [address] [id number] [address] [place] [address], [place] [address] Dec, [facility] [address] [id number] [address] [place] [address], [place] [address] 30 Dec, 2011 [facility] [address] [id number] [address] [place] [address], [place] [address] Dec, [facility] [address] [id number] [address] [place] [address], [place] [address] Dec, [facility] [address] [id number] [address] [place] [address], [place] [address] Dec, [facility] [address] [id number] [address] [place] [address], [place] [address] Dec, [facility] [address] [id number] [address] [place] [address], [place] [address] Dec, [facility] [address] [id number] [address] [place] [address], [place] [address] Oct, [facility] [address] [id number] [address] [place] [address], [place] [address] Oct, [facility] [address] [id number] [address] [place] [address], [place] [address] Aug, [facility] [address] [id number] [address] [place] [address], [place] [address] Aug, [facility] [address] [id number] [address] [place] [address], [place] [address] July, [facility] [address] [id number] [address] [place] [address], [place] [address] Jun, [facility] [address] [id number] [address] [place] [address], [place] [address] Jun, [facility] [address] [id number] [address] [place] [address], [place] [address] May, [facility] [address] [id number] [address] [place] [address], [place] [address] Apr, [facility] [address] [id number] [address] [place] [address], [place] [address] Apr, [facility] [address] [id number] [address] [place] [address], [place] [address] Mar, [facility] [address] [id number] [address] [place] [address], [place] [address] Mar, [facility] [address] [id number] [address] [place] [address], [place] [address] Feb, [facility] [address] [id number] [address] [place] [address], [place] [address] 15 Feb, 2011 [facility] [address] [id number] [address] [place] [address], [place] [address] Feb, [facility] [address] [id number] [address] [place] [address], [place] [address] Feb, [facility] [address] [id number] [address] [place] [address], [place] [address] Jan, [facility] [address] [id number] [address] [place] [address], [place] [address] Dec, [facility] [address] [id number] [address] [place] [address], [place] [address] Feb, [facility] [address] [id number] [address] [place] [address], [place] [address] Feb, [facility] [address] [id number] [address] [place] [address], [place] [address] Feb, [facility] [address] [id number] [address] [place] [address], [place] [address] Feb, [facility] [address] [id number] [address] [place] [address], [place] [address] Dec, [facility] [address] [id number] [address] [place] [address], [place] [address] Dec, [facility] [address] [id number] [address] [place] [address], [place] [address] Oct, [facility] [address] [id number] [address] [address] Jun, [facility] [address] [facility] [id number] [address] [place] [id number] Feb, [facility] [address] [facility] [id number] [address] [place] [id number] Feb, [facility] [address] [facility] [id number] [address] [place] [id number] Feb, [facility] [address] [facility] [id number] [address] [place] [id number] Dec, IMMUNIZATIONS No Known Immunizations SOCIAL HISTORY [...]
--- OUTSIDE RECORDS SUMMARY | 2019-10-19 12:32 | XMS REPORT ---
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 Active 367664981 Problem Hypertriglyceridemia E78.1 Active 494154578 Problem 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 Active 276305670 Problem Pelvic pain R10.2 Active 26578843 Problem Peripheral edema R60.9 Active 271 927140 Problem Moderate episode of recurrent major depressive disorder F33.1 Active 814589111 Problem Presence of IVC filter Z95.828 Active 804915388 Problem Vitamin D deficiency E55.9 Active 27260378 Problem Generalized anxiety disorder F41.1 A ctive 460354822 Problem Excessive daytime sleepiness G47.19 A ctive [id number] Problem Gastroesophageal reflux disease, esophagitis pre sence not specified K21.9 Active 440974491 Problem Thyroid nodule E04.1 Active 22010 5005 Problem Morbid obesity E66.01 Active 64995 6002 ALLERGIES No Information ENCOUNTERS Encounter Location Date Diagnosis [facility] [address] [facility] [id number] [address] [place] [phone] Oct, Syncope, unspecified syncope type R55 [facility] [address] [facility] [id number] [address] [place] [phone] Oct, Morbid obesity E66.01 [facility] [address] [facility] [id number] [address] [place] [address] Oct, Hypertriglyceridemia E78.1 [facility] [address] [id number] [address] [place] [phone] Oct, [facility] [address] [id number] [address] [place] [address] Oct, Hypertriglyceridemia E78.1 [facility] [address] [facility] [id number] [address] [place] [address] Sep, Hypertriglyceridemia E78.1 a nd Vitamin D deficiency E55.9 [facility] [address] [id number] [address] [place] [address] Sep, [facility] [address] [id number] [address] [place] [address] Sep, Morbid obesity E66.01 ; Mode rate episode of recurrent major depressive disorder F33.1 ; Hypertriglyceridemia E78.1 and Vitamin D deficiency E55.9 [facility] [address] [facility] [id number] [address] [place] [address] Aug, [facility] [address] [id number] [address] [place] [phone] July, [facility] [address] [id number] [address] [place] [address] July, [facility] [address] [facility] [id number] [address] [place] [phone] Jun, [facility] [address] [id number] [address] [place] [address] Jun, [facility] [address] [facility] [id number] [address] [place] [address] Jun, Closed compression fracture of L3 lumbar vertebra with routine healing, subsequent encounter S32.030D and Drug-induced constipation K59.03 [facility] [address] [id number] [address] [place] [address] Jun, [facility] [address] [facility] [id number] [address] [place] [address] Jun, [facility] [address] [facility] [id number] [address] [place] [address] Apr, [facility] [address] [facility] [id number] [place] [phone] 18 Apr, 2018 Morbid obesity E66.01 [facility] [address] [facility] [id number] [address] [place] [phone] 12 Apr, 2018 Morbid obesity E66.01 ; Hype rtriglyceridemia E78.1 ; Gastroesophageal reflux disease, esophagitis presence not specified K21.9 and Joint pain M25.50 [facility] [address] [facility] [id number] [address] [place] [phone] Feb, [facility] [address] [facility] [id number] [place] [phone] Feb, [facility] [address] [facility] [id number] [address] [place] [address] Jan, Acute bacterial conjunctivit is H10.30 [facility] [address] [facility] [id number] [address] [place] [phone] 08 Dec, 2017 [facility] [address] [facility] [id number] [place] [phone] 04 Dec, 2017 [facility] [address] [place] [id number] [address] [place] [phone] 17 Nov, 2017 [facility] [address] [place] [id number] [address] [place] [address] 07 Nov, 2017 Obstructive sleep apnea G47. 33 ; Morbid obesity E66.01 and Gastroesophageal reflux disease, esophagitis presence not specified K21.[address] [facility] [address] [id number] [address] [place] [id number] 06 Nov, 2017 Encounter for examination of eyes and vision without abnormal findings Z01.00 [facility] [address] [facility] [id number] [address] [place] [phone] 31 Oct, 2017 Thyroid nodule E04.1 and Scr eening for breast cancer Z12.31 [facility] [address] [id number] [address] [place] [address] Oct, History of DVT (deep vein th rombosis) Z86.718 ; Thyroid nodule E04.1 and Gastroesophageal reflux disease, esophagitis presence not specified K21.9 [place] [address] [id number] [address] [place] [address] Oct, [place] [address] [id number] [address] [place] [phone] Sep, [place] [address] [id number] [address] [place] [address] Aug, [place] [address] [id number] [address] [place] [phone] Aug, [place] [address] [id number] [address] [place] [address] Aug, Acute pain of left shoulder M25.512 and Thyroid nodule E04.1 [place] [address] [id number] [address] [place] [address] July, Superior glenoid labrum lesi on of left shoulder, subsequent encounter S43.432D [place] [address] [id number] [address] [place] [address] Jun, History of DVT (deep vein th rombosis) Z86.718 [place] [address] [id number] [address] [place] [address] Jun, History of DVT (deep vein th rombosis) Z86.718 [place] [address] [id number] [address] [place] [address] Jun, Impingement syndrome, should er, left M75.42 [place] [address] [id number] [address] [place] [address] May, Subacromial bursitis of left shoulder joint M75.52 [place] [address] [facility] [id number] [address] [place] [address] May, [facility] [address] [id number] [address] [place] [address] May, Hypertriglyceridemia E78.1 ; 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 and Excessive daytime sleepiness G47.19 [facility] [address] [id number] [address] [place] [address] May, History of DVT (deep vein th rombosis) Z86.718 ; Generalized anxiety disorder F41.1 ; Hypertriglyceridemia E78.1 ; senior living (current) use of anticoagulants Z79.01 ; Subacromial bursitis of left shoulder joint M75.52 and Excessive daytime sleepiness G47.19 [place] [address] [id number] [address] [place] [address] May, [place] [address] [id number] [address] [place] [address] May, 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 [place] [address] [id number] [address] [place] [address] Apr, senior living (current) use of a nticoagulants Z79.01 [place] [address] [id number] [address] [place] [address] Apr, senior living (current) use of a nticoagulants Z79.01 [place] [address] [id number] [address] [place] [address] Apr, 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 [place] [address] [id number] [address] [place] [address] Apr, [facility] [address] [id number] [address] [place] [phone] Apr, senior living (current) use of a nticoagulants Z79.01 [place] [address] [id number] [address] [place] [phone] 13 Apr, 2017 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 [facility] [address] [id number] [address] [place] [address] Apr, senior living (current) use of a nticoagulants Z79.01 [facility] [address] [id number] [address] [place] [address] Apr, senior living (current) use of a nticoagulants Z79.01 [facility] [address] [id number] [address] [place] [address] Apr, 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 [facility] [address] [id number] [address] [place] [address] Apr, 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 [facility] [address] [id number] [address] [place] [address] Mar, 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 [facility] [address] [id number] [address] [place] [address] Mar, [facility] [address] [id number] [address] [place] [address] Mar, senior living (current) use of a nticoagulants Z79.[address] [facility] [address] [id number] [address] [place] [address] [id number] Jan, Dental examination Z01.[address] [facility] [address] [id number] [address] [place] [id number] Jan, [facility] [address] [id number] [address] [place] [address] Jan, senior living (current) use of a nticoagulants Z79.01 [facility] [address] [id number] [address] [place] [address] Jan, History of DVT (deep vein th rombosis) Z86.718 [facility] [address] [id number] [address] [place] [address] Jan, Generalized anxiety disorder F41.1 and Peripheral edema R60.9 [facility] [address] [id number] [address] [place] [address] Nov, History of DVT (deep vein th rombosis) Z86.718 [facility] [address] [id number] [address] [place] [address] Nov, 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 [facility] [address] [id number] [address] [place] [address] Nov, Acute non-recurrent maxillar y sinusitis J01.00 [facility] [address] [id number] [address] [place] [phone] Oct, senior living (current) use of a nticoagulants Z79.01 [facility] [address] [id number] [address] [place] [address] Oct, Personal history of venous t hrombosis and embolism Z86.718 [facility] [address] [id number] [address] [place] [address] Sep, [facility] [address] [id number] [address] [place] [address] Sep, Personal history of venous t hrombosis and embolism Z86.718 [facility] [address] [id number] [address] [place] [address] Sep, senior living (current) use of a nticoagulants Z79.01 [facility] [address] [id number] [address] [place] [address] Sep, 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 [facility] [address] [id number] [address] [place] [address] Sep, Generalized anxiety disorder F41.1 and History of DVT (deep vein thrombosis) Z86.718 [place] [address] [address] Aug, History of DVT (deep vein th rombosis) Z86.718 ; Generalized anxiety disorder F41.1 ; 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 ; Pelvic pain R10.2 ; Hypertriglyceridemia E78.1 ; Excessive daytime sleepiness G47.19 ; Colon cancer screening Z12.11 ; Screening for breast cancer Z12.39 ; Peripheral edema R60.9 and Gastroesophageal reflux disease, esophagitis presence not specified K21.9 [place] [address] [address] Aug, [place] [address] [phone] July, [place] [address] [address] July, History of DVT (deep vein th rombosis) Z86.718 [place] [address] [address] Jun, Generalized anxiety disorder F41.1 [place] [address] [address] Jun, History of DVT (deep vein th rombosis) Z86.718 [place] [address] [address] Jun, History of DVT (deep vein th rombosis) Z86.718 [place] [address] [address] Jun, History of DVT (deep vein th rombosis) Z86.718 [place] [address] [address] Jun, History of DVT (deep vein th rombosis) Z86.718 [facility] [address] [id number] [address] [place] [address] May, History of DVT (deep vein th rombosis) Z86.718 [facility] [address] [id number] [address] [place] [address] May, senior living (current) use of a nticoagulants Z79.01 [facility] [address] [facility] [id number] [address] [place] [address] May, 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 [facility] [address] [id number] [address] [place] [address] May, History of DVT (deep vein th rombosis) Z86.718 [facility] [address] [id number] [address] [place] [address] 27 Apr, 2016 Bacterial conjunctivitis of left eye H10.9 and H/O motion sickness Z87.898 [facility] [address] [id number] [address] [place] [address] 24 Apr, 2016 History of DVT (deep vein th rombosis) Z86.718 [facility] [address] [id number] [address] [place] [address] 23 Apr, 2016 History of DVT (deep vein th rombosis) Z86.718 [facility] [address] [id number] [address] [place] [address] 15 Apr, 2016 History of DVT (deep vein th rombosis) Z86.718 [facility] [address] [id number] [address] [place] [address] 14 Apr, 2016 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 [facility] [address] [id number] [address] [place] [address] Mar, [facility] [address] [facility] [id number] [address] [place] [address] Mar, senior living (current) use of a nticoagulants Z79.01 [facility] [address] [id number] [address] [place] [address] Mar, Hypertriglyceridemia E78.1 a nd 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 [facility] [address] [id number] [address] [place] [address] Feb, senior living (current) use of a nticoagulants Z79.01 [facility] [address] [id number] [address] [place] [phone] Feb, senior living (current) use of a nticoagulants Z79.01 [facility] [address] [id number] [address] [place] [address] Feb, 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 [facility] [address] [id number] [address] [place] [address] Dec, [facility] [address] [id number] [address] [place] [address] Nov, [facility] [address] [facility] [id number] [address] [place] [address] Nov, History of DVT (deep vein th rombosis) Z86.718 ; Tremulousness R25.1 ; Generalized anxiety disorder F41.1 ; Peripheral edema R60.9 and Hypertriglyceridemia E78.1 [facility] [address] [id number] [address] [place] [address] Oct, History of DVT (deep vein th rombosis) Z86.718 [facility] [address] [id number] [address] [place] [address] Oct, [facility] [address] [facility] [id number] [address] [place] [address] Sep, History of DVT (deep vein th rombosis) Z86.718 [place] [address] [id number] [address] [place] [address] Sep, 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 [facility] [address] [id number] [address] [place] [address] July, [facility] [address] [facility] [id number] [address] [place] [address] July, 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 [place] [address] [id number] [address] [place] [address] July, 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 [place] [address] [facility] [id number] [address] [place] [address] Jun, senior living (current) use of a nticoagulants Z79.01 [facility] [place] [address] [facility] [id number] [address] [place] [address] Jun, Coccyx pain M53.3 ; Encounte r for therapeutic drug level monitoring Z51.81 and 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 current use 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.01 [place] [address] [facility] [id number] [address] [place] [address] May, Abnormal mammogram R92.8 [facility] [place] [address] [facility] [id number] [address] [place] [address] May, [facility] [place] [address] [facility] [id number] [address] [place] [address] May, Acute vaginitis N76.0 and En counter for other screening for malignant neoplasm of breast Z12.39 [place] [address] [facility] [id number] [address] [place] [address] Apr, [place] [address] [facility] [id number] [address] [place] [address] Apr, [place] [address] [facility] [id number] [address] [place] [address] Apr, Peripheral edema R60.9 [facility] [address] [id number] [address] [place] [address] Apr, 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 [facility] [address] [id number] [address] [place] [address] Apr, Peripheral edema R60.9 and L jose martin term (current) 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 Z79.01 [facility] [address] [id number] [address] [place] [address] Apr, 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 [facility] [address] [id number] [address] [place] [address] Apr, [facility] [address] [id number] [address] [place] [phone] Apr, 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 [facility] [address] [id number] [address] [place] [address] Apr, Peripheral edema R60.9 [facility] [address] [id number] [address] [place] [address] Mar, 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 [facility] [address] [id number] [address] [place] [address] Mar, 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 and Hypertriglyceridemia E78.1 [facility] [address] [id number] [address] [place] [address] Mar, senior living (current) use of a nticoagulants Z79.01 [facility] [address] [id number] [address] [place] [address] Mar, senior living (current) use of a nticoagulants Z79.01 [facility] [address] [id number] [address] [place] [address] Mar, [facility] [address] [id number] [address] [place] [address] Mar, senior living (current) use of a nticoagulants Z79.01 ; Hypertriglyceridemia E78.1 ; Personal history of venous thrombosis and embolism Z86.718 and Lump R22.9 [place] [address] [id number] [address] [place] [address] Mar, Personal history of venous t hrombosis and embolism Z86.718 [place] [address] [id number] [address] [place] [address] Mar, Personal history of venous t hrombosis and embolism Z86.718 [place] [address] [id number] [address] [place] [address] Mar, [place] [address] [id number] [address] [place] [address] Dec, Personal history of venous t hrombosis and embolism Z86.718 [place] [address] [id number] [address] [place] [address] Dec, Personal history of venous t hrombosis and embolism V12.51 [place] [address] [id number] [address] [place] [phone] 28 Nov, 2014 Personal history of venous t hrombosis and embolism V12.51 [place] [address] [id number] [address] [place] [phone] 25 Nov, 2014 Personal history of venous t hrombosis and embolism V12.51 [place] [address] [id number] [address] [place] [phone] 17 Nov, 2014 Personal history of venous t hrombosis and embolism V12.51 [place] [address] [id number] [address] [place] [phone] 11 Nov, 2014 Personal history of venous t hrombosis and embolism V12.51 [place] [address] [id number] [address] [place] [phone] Nov, [facility] [address] [id number] [address] [place] [id number] Oct, Dysuria 788.1 [facility] [address] [id number] [address] [place] [phone] Oct, Personal history of venous t hrombosis and embolism V12.51 [facility] [address] [id number] [address] [place] [phone] Oct, [facility] [address] [id number] [address] [place] [id number] Oct, Personal history of venous t hrombosis and embolism V12.51 [place] [address] [id number] [address] [place] [phone] Sep, Personal history of venous t hrombosis and embolism V12.51 [place] [address] [id number] [address] [place] [phone] Sep, Personal history of venous t hrombosis and embolism V12.51 [place] [address] [id number] [address] [place] [phone] Aug, Personal history of venous t hrombosis and embolism V12.51 [place] [address] [id number] [address] [place] [phone] Aug, Personal history of venous t hrombosis and embolism V12.51 [facility] [address] [id number] [address] [place] [id number] 15 Aug, 2014 Personal history of venous t hrombosis and embolism V12.51 [place] [address] [id number] [address] [place] [address] July, Generalized anxiety disorder 300.02 ; Abdominal pain, left lower quadrant 789.04 and Personal history of venous thrombosis and embolism V12.51 [place] [address] [id number] [address] [place] [address] 14 Jun, 2014 [facility] [address] [id number] [address] [place] [address], [place] [address] Jun, [facility] [address] [id number] [address] [place] [address], [place] [address] May, [facility] [address] [id number] [address] [place] [address], [place] [address] May, [facility] [address] [id number] [address] [place] [address], [place] [address] May, [facility] [address] [id number] [address] [place] [address], [place] [address] May, [facility] [address] [id number] [address] [place] [address], [place] [address] May, [facility] [address] [id number] [address] [place] [address], [place] [address] May, [facility] [address] [id number] [address] [place] [address], [place] [address] May, [facility] [address] [id number] [address] [place] [address], [place] [address] May, [facility] [address] [id number] [address] [place] [address], [place] [address] Apr, [facility] [address] [id number] [address] [place] [address], [place] [address] Apr, [facility] [address] [id number] [address] [place] [address], [place] [address] Apr, [facility] [address] [id number] [address] [place] [address], [place] [address] Apr, [facility] [address] [id number] [address] [place] [address], [place] [address] Apr, [facility] [address] [id number] [address] [place] [address], [place] [address] Mar, [facility] [address] [id number] [address] [place] [address], [place] [address] Mar, [facility] [address] [id number] [address] [place] [address], [place] [address] Mar, [facility] [address] [id number] [address] [place] [address], [place] [address] Mar, [facility] [address] [id number] [address] [place] [address], [place] [address] Mar, [facility] [address] [id number] [address] [place] [address], [place] [address] Mar, [facility] [address] [id number] [address] [place] [address], [place] [address] Feb, [facility] [address] [id number] [address] [place] [address], [place] [address] Feb, [facility] [address] [id number] [address] [place] [address], [place] [address] Feb, [facility] [address] [id number] [address] [place] [address], [place] [address] Feb, [facility] [address] [id number] [address] [place] [address], [place] [address] Feb, [facility] [address] [id number] [address] [place] [address], [place] [address] Feb, [facility] [address] [id number] [address] [place] [address], [place] [address] Feb, [facility] [address] [id number] [address] [place] [address], [place] [address] Feb, [facility] [address] [id number] [address] [place] [address], [place] [address] Feb, [facility] [address] [id number] [address] [place] [address], [place] [address] Feb, [facility] [address] [id number] [address] [place] [address], [place] [address] Jan, [facility] [address] [id number] [address] [place] [address], [place] [address] Jan, [facility] [address] [id number] [address] [place] [address], [place] [address] Jan, [facility] [address] [id number] [address] [place] [address], [place] [address] Jan, [facility] [address] [id number] [address] [place] [address], [place] [address] Jan, [facility] [address] [id number] [address] [place] [address], [place] [address] Jan, [facility] [address] [id number] [address] [place] [address], [place] [address] Jan, [facility] [address] [id number] [address] [place] [address], [place] [address] Jan, [facility] [address] [id number] [address] [place] [address], [place] [address] Jan, [facility] [address] [id number] [address] [place] [address], [place] [address] Jan, [facility] [address] [id number] [address] [place] [address], [place] [address] Dec, [facility] [address] [id number] [address] [place] [address], [place] [address] Dec, [facility] [address] [id number] [address] [place] [address] Dec, [facility] [address] [id number] [address] [place] [address], [place] [address] Dec, [facility] [address] [id number] [address] [place] [address], [place] [address] Dec, [facility] [address] [id number] [address] [place] [address], [place] [address] Dec, [facility] [address] [id number] [address] [place] [address], [place] [address] Dec, [facility] [address] [id number] [address] [place] [address], [place] [address] Dec, [facility] [address] [id number] [address] [place] [address], [place] [address] Dec, [facility] [address] [id number] [address] [place] [address], [place] [address] Dec, [facility] [address] [id number] [address] [place] [address], [place] [address] Dec, [facility] [address] [id number] [address] [place] [address], [place] [address] Dec, [facility] [address] [id number] [address] [place] [address], [place] [address] Dec, [facility] [address] [id number] [address] [place] [address], [place] [address] Dec, [facility] [address] [id number] [address] [place] [address], [place] [address] Dec, [facility] [address] [id number] [address] [place] [address], [place] [address] 30 Nov, 2013 [facility] [address] [id number] [address] [place] [address], [place] [address] 30 Sep, 2013 [facility] [address] [id number] [address] [place] [address], [place] [address] 26 Sep, 2013 [facility] [address] [id number] [address] [place] [address], [place] [address] 26 Sep, 2013 [facility] [address] [id number] [address] [place] [address], [place] [address] 24 Nov, 2013 [facility] [address] [id number] [address] [place] [address], [place] [address] 24 Nov, 2013 [facility] [address] [id number] [address] [place] [address], [place] [address] 23 Nov, 2013 [facility] [address] [id number] [facility] [place] [address] 23 Nov, 2013 [facility] [address] [id number] [facility] [place] [address] 18 Nov, 2013 [facility] [address] [id number] [facility] [place] [address] 18 Nov, 2013 [facility] [address] [id number] [facility] [place] [address] 17 Nov, 2013 [facility] [address] [id number] [facility] [place] [address] 17 Nov, 2013 [facility] [address] [id number] [address] [place] [address], [place] [address] 11 Nov, 2013 [facility] [address] [id number] [address] [place] [address], [place] [address] 11 Nov, 2013 [facility] [address] [id number] [address] [place] [address], [place] [address] 10 Nov, 2013 [facility] [address] [id number] [address] [place] [address], [place] [address] 10 Nov, 2013 [facility] [address] [id number] [address] [place] [address], [place] [address] 08 Nov, 2013 [facility] [address] [id number] [address] [place] [address], [place] [address] 08 Nov, 2013 [facility] [address] [id number] [address] [place] [address], [place] [address] Sep, 2013 [facility] [address] [id number] [address] [place] [address], [place] [address] Sep, 2013 [facility] [address] [id number] [address] [place] [address], [place] [address] Sep, 2013 [facility] [address] [id number] [address] [place] [address], [place] [address] Sep, 2013 [facility] [address] [id number] [address] [place] [address], [place] [address] Sep, [facility] [address] [id number] [facility] [place] [address] Sep, [facility] [address] [id number] [address] [place] [address], [place] [address] Aug, [facility] [address] [id number] [address] [place] [address], [place] [address] Aug, [facility] [address] [id number] [address] [place] [address], [place] [address] Aug, [facility] [address] [id number] [address] [place] [address], [place] [address] Aug, [facility] [address] [id number] [address] [place] [address], [place] [address] Aug, [facility] [address] [id number] [address] [place] [address], [place] [address] Aug, [facility] [address] [id number] [address] [place] [address], [place] [address] Aug, [facility] [address] [id number] [address] [place] [address], [place] [address] Aug, [facility] [address] [id number] [address] [place] [address], [place] [address] Aug, [facility] [address] [id number] [address] [place] [address], [place] [address] Aug, [facility] [address] [id number] [address] [place] [address], [place] [address] Aug, [facility] [address] [id number] [address] [place] [address], [place] [address] July, [facility] [address] [id number] [address] [place] [address], [place] [address] July, [facility] [address] [id number] [address] [place] [address], [place] [address] Jun, [facility] [address] [id number] [facility] [place] [address] 25 Jun, 2013 [facility] [address] [id number] [address] [place] [address], [place] [address] 18 Jun, 2013 [facility] [address] [id number] [address] [place] [address], [place] [address] 18 Jun, 2013 [facility] [address] [id number] [address] [place] [address], [place] [address] Jun, [facility] [address] [id number] [address] [place] [address], [place] [address] 18 Jun, 2013 [facility] [address] [id number] [address] [place] [address], [place] [address] Jun, [facility] [address] [id number] [address] [place] [address], [place] [address] Jun, [facility] [address] [id number] [address] [place] [address], [place] [address] Jun, [facility] [address] [id number] [address] [place] [address], [place] [address] Jun, [facility] [address] [id number] [address] [place] [address], [place] [address] Jun, [facility] [address] [id number] [address] [place] [address], [place] [address] Jun, [facility] [address] [id number] [address] [place] [address], [place] [address] May, [facility] [address] [id number] [address] [place] [address], [place] [address] May, [facility] [address] [id number] [address] [place] [address], [place] [address] May, [facility] [address] [id number] [address] [place] [address], [place] [address] May, [facility] [address] [id number] [address] [place] [address], [place] [address] May, [facility] [address] [id number] [address] [place] [address], [place] [address] May, [facility] [address] [id number] [address] [place] [address], [place] [address] May, [facility] [address] [id number] [address] [place] [address], [place] [address] May, [facility] [address] [id number] [address] [place] [address], [place] [address] May, [facility] [address] [id number] [address] [place] [address], [place] [address] May, [facility] [address] [id number] [address] [place] [address], [place] [address] May, [facility] [address] [id number] [address] [place] [address], [place] [address] May, [facility] [address] [id number] [address] [place] [address], [place] [address] Apr, [facility] [address] [id number] [address] [place] [address], [place] [address] Apr, [facility] [address] [id number] [address] [place] [address], [place] [address] Apr, [facility] [address] [id number] [address] [place] [address], [place] [address] Apr, [facility] [address] [id number] [address] [place] [address], [place] [address] Apr, [facility] [address] [id number] [address] [place] [address], [place] [address] Apr, [facility] [address] [id number] [address] [place] [address], [place] [address] Apr, [facility] [address] [id number] [address] [place] [address], [place] [address] Apr, [facility] [address] [id number] [address] [place] [address], [place] [address] Apr, [facility] [address] [id number] [address] [place] [address], [place] [address] Apr, [facility] [address] [id number] [address] [place] [address], [place] [address] Apr, [facility] [address] [id number] [address] [place] [address], [place] [address] Apr, 2013 [facility] [address] [id number] [address] [place] [address], [place] [address] Apr, [facility] [address] [id number] [address] [place] [address], [place] [address] Apr, [facility] [address] [id number] [address] [place] [address], [place] [address] Apr, [facility] [address] [id number] [address] [place] [address], [place] [address] Apr, [facility] [address] [id number] [address] [place] [address], [place] [address] Apr, [facility] [address] [id number] [address] [place] [address], [place] [address] Jan, [facility] [address] [id number] [address] [place] [address], [place] [address] Jan, [facility] [address] [id number] [address] [place] [address], [place] [address] 08 Jan, 2013 [facility] [address] [id number] [address] [place] [address], [place] [address] Jan, [facility] [address] [id number] [address] [place] [address], [place] [address] Jan, [facility] [address] [id number] [address] [place] [address], [place] [address] 07 Jan, 2013 [facility] [address] [id number] [address] [place] [address], [place] [address] Jan, [facility] [address] [id number] [address] [place] [address], [place] [address] Dec, [facility] [address] [id number] [address] [place] [address], [place] [address] Dec, [facility] [address] [id number] [address] [place] [address], [place] [address] Dec, [facility] [address] [id number] [address] [place] [address], [place] [address] Nov, [facility] [address] [id number] [address] [place] [address], [place] [address] Nov, [facility] [address] [id number] [address] [place] [address], [place] [address] Nov, [facility] [address] [id number] [address] [place] [address], [place] [address] Nov, [facility] [address] [id number] [address] [place] [address], [place] [address] Oct, [facility] [address] [id number] [address] [place] [address], [place] [address] Oct, [facility] [address] [id number] [address] [place] [address], [place] [address] Oct, [facility] [address] [id number] [address] [place] [address], [place] [address] Oct, [facility] [address] [id number] [address] [place] [address], [place] [address] Oct, [facility] [address] [id number] [address] [place] [address], [place] [address] Sep, [facility] [address] [id number] [address] [place] [address], [place] [address] Sep, [facility] [address] [id number] [address] [place] [address], [place] [address] Sep, [facility] [address] [id number] [address] [place] [address], [place] [address] Sep, [facility] [address] [id number] [address] [place] [address], [place] [address] Sep, [facility] [address] [id number] [address] [place] [address], [place] [address] Sep, [facility] [address] [id number] [address] [place] [address], [place] [address] Sep, [facility] [address] [id number] [address] [place] [address], [place] [address] Aug, [facility] [address] [id number] [address] [place] [address], [place] [address] Aug, [facility] [address] [id number] [address] [place] [address], [place] [address] July, [facility] [address] [id number] [address] [place] [address], [place] [address] Jun, [facility] [address] [id number] [address] [place] [address], [place] [address] Jun, [facility] [address] [id number] [address] [place] [address], [place] [address] Jun, [facility] [address] [id number] [address] [place] [address], [place] [address] Apr, [facility] [address] [id number] [address] [place] [address], [place] [address] Apr, [facility] [address] [id number] [address] [place] [address], [place] [address] Apr, [facility] [address] [id number] [address] [place] [address], [place] [address] Mar, [facility] [address] [id number] [address] [place] [address], [place] [address] Mar, [facility] [address] [id number] [address] [place] [address], [place] [address] Mar, [facility] [address] [id number] [address] [place] [address], [place] [address] 09 Mar, 2012 [facility] [address] [id number] [address] [place] [address], [place] [address] Mar, [facility] [address] [id number] [address] [place] [address], [place] [address] 14 Feb, 2012 [facility] [address] [id number] [address] [place] [address], [place] [address] 14 Feb, 2012 [facility] [address] [id number] [address] [place] [address], [place] [address] Jan, [facility] [address] [id number] [address] [place] [address], [place] [address] 13 Jan, 2012 [facility] [address] [id number] [address] [place] [address], [place] [address] Jan, [facility] [address] [id number] [address] [place] [address], [place] [address] Jan, [facility] [address] [id number] [address] [place] [address], [place] [address] Jan, [facility] [address] [id number] [address] [place] [address], [place] [address] Jan, [facility] [address] [id number] [address] [place] [address], [place] [address] Jan, [facility] [address] [id number] [address] [place] [id number] Dec, [facility] [address] [id number] [address] [place] [address], [place] [address] Dec, [facility] [address] [id number] [address] [place] [address], [place] [address] Dec, [facility] [address] [id number] [address] [place] [address], [place] [address] Dec, [facility] [address] [id number] [address] [place] [address], [place] [address] 30 Dec, 2011 [facility] [address] [id number] [address] [place] [address], [place] [address] Dec, [facility] [address] [id number] [address] [place] [address], [place] [address] Dec, [facility] [address] [id number] [address] [place] [address], [place] [address] Dec, [facility] [address] [id number] [address] [place] [address], [place] [address] Dec, [facility] [address] [id number] [address] [place] [address], [place] [address] Dec, [facility] [address] [id number] [address] [place] [address], [place] [address] Oct, [facility] [address] [id number] [address] [place] [address], [place] [address] Oct, [facility] [address] [id number] [address] [place] [address], [place] [address] Aug, [facility] [address] [id number] [address] [place] [address], [place] [address] Aug, [facility] [address] [id number] [address] [place] [address], [place] [address] July, [facility] [address] [id number] [address] [place] [address], [place] [address] Jun, [facility] [address] [id number] [address] [place] [address], [place] [address] Jun, [facility] [address] [id number] [address] [place] [address], [place] [address] May, [facility] [address] [id number] [address] [place] [address], [place] [address] Apr, [facility] [address] [id number] [address] [place] [address], [place] [address] Apr, [facility] [address] [id number] [address] [place] [address], [place] [address] Mar, [facility] [address] [id number] [address] [place] [address] [id number] Mar, [facility] [address] [id number] [address] [place] [address], [place] [address] Feb, [facility] [address] [id number] [address] [place] [address], [place] [address] 15 Feb, 2011 [facility] [address] [id number] [address] [place] [address], [place] [address] Feb, [facility] [address] [id number] [address] [place] [address], [place] [address] Feb, [facility] [address] [id number] [address] [place] [address], [place] [address] Jan, [facility] [address] [id number] [address] [place] [address], [place] [address] Dec, [facility] [address] [id number] [address] [place] [address], [place] [address] Feb, [facility] [address] [id number] [address] [place] [address], [place] [address] Feb, [facility] [address] [id number] [address] [place] [address], [place] [address] Feb, [facility] [address] [id number] [address] [place] [address], [place] [address] Feb, [facility] [address] [id number] [address] [place] [address], [place] [address] Dec, [facility] [address] [id number] [address] [place] [address], [place] [address] Dec, [facility] [address] [id number] [address] [place] [address], [place] [address] Oct, [facility] [address] [id number] [place] [address] Jun, [facility] [address] [facility] [id number] [address] [place] [id number] Feb, [facility] [address] [facility] [id number] [address] [place] [id number] Feb, [facility] [address] [facility] [id number] [address] [place] [id number] Feb, [facility] [address] [facility] [id number] [address] [place] [id number] Dec, IMMUNIZATIONS No Known Immunizations SOCIAL HISTORY Never Assessed REASON FOR VISIT PLAN OF CARE VITAL SIGNS MEDICATIONS Unknown Medications RESULTS No Results PROCEDURES Procedure Date Ordered Result Body Site PROTHROMBIN TIME Dec 07, 2013 VENIPUNCT, ROUTINE* Dec 07, 2013 INSTRUCTIONS MEDICATIONS ADMINISTERED No Known Medications MEDICAL (GENERAL) HISTORY Type Description Date Medical History obesity Medical History Hematologic disorder factor clotting pro [place] Medical History DVT's Medical History Torn Rotator Cuff, repaired 09/23/17 Surgical History Lap Band 10/2012 Surgical History section 1985, 1987 Surgical History cholecystectomy Surgical History Mcarthur Filter 06/2009 Surgical History Left leg exploratory surgery r/t clot Surgical History left shoulder surgery 09/14/17 Surgical History lap band removed 12/2017 Surgical History gastic sleeve 01/2018 Surgical History Back surgery 2019 Hospitalization History Ruptured Ovarian Cyst with abd bleed ing 11/2009 Hospitalization History Broken Back 06/2018
--- OUTSIDE RECORDS SUMMARY | 2019-10-19 12:33 | XMS REPORT ---
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 Active 935884073 Problem Hypertriglyceridemia E78.1 Active 400526717 Problem 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 Active 314846324 Problem Pelvic pain R10.2 Active 63721882 Problem Peripheral edema R60.9 Active 271 986510 Problem Moderate episode of recurrent major depressive disorder F33.1 Active 721853930 Problem Presence of IVC filter Z95.828 Active 462745626 Problem Vitamin D deficiency E55.9 Active 08336588 Problem Generalized anxiety disorder F41.1 A ctive 041891325 Problem Excessive daytime sleepiness G47.19 A ctive [id number] Problem Gastroesophageal reflux disease, esophagitis pre sence not specified K21.9 Active 677505370 Problem Thyroid nodule E04.1 Active 35857 5005 Problem Morbid obesity E66.01 Active 50323 6002 ALLERGIES No Information ENCOUNTERS Encounter Location Date Diagnosis [facility] [address] [id number] [address] [place] [phone] Oct, [facility] [address] [facility] [id number] [address] [place] [id number] Oct, Morbid obesity E66.01 [facility] [address] [facility] [id number] [address] [place] [phone] Oct, Hypertriglyceridemia E78.1 [place] [address] [id number] [address] [place] [id number] Oct, [facility] [address] [id number] [address] [place] [phone] Oct, Hypertriglyceridemia E78.1 [facility] [address] [id number] [address] [place] [phone] Sep, Hypertriglyceridemia E78.1 a nd Vitamin D deficiency E55.9 [facility] [address] [id number] [address] [place] [id number] Sep, [facility] [address] [id number] [address] [place] [id number] Sep, Morbid obesity E66.01 ; Mode rate episode of recurrent major depressive disorder F33.1 ; Hypertriglyceridemia E78.1 and Vitamin D deficiency E55.9 [facility] [address] [facility] [id number] [address] [place] [id number] Aug, [facility] [address] [id number] [address] [place] [phone] July, [facility] [address] [facility] [id number] [address] [place] [phone] July, [facility] [address] [facility] [id number] [address] [place] [phone] Jun, [facility] [address] [facility] [id number] [address] [place] [id number] Jun, [facility] [address] [facility] [id number] [address] [place] [id number] Jun, Closed compression fracture of L3 lumbar vertebra with routine healing, subsequent encounter S32.030D and Drug-induced constipation K59.03 [facility] [address] [id number] [address] [place] [phone] Jun, [facility] [address] [facility] [id number] [address] [place] [phone] Jun, [facility] [address] [facility] [id number] [address] [place] [id number] 19 Apr, 2018 [facility] [address] [facility] [id number] [place] [id number] 18 Apr, 2018 Morbid obesity E66.01 [facility] [address] [facility] [id number] [address] [place] [id number] 12 Apr, 2018 Morbid obesity E66.01 ; Hype rtriglyceridemia E78.1 ; Gastroesophageal reflux disease, esophagitis presence not specified K21.9 and Joint pain M25.50 [facility] [address] [facility] [id number] [address] [place] [id number] 22 Feb, 2018 [facility] [address] [place] [id number] [place] [phone] Feb, [facility] [address] [facility] [id number] [address] [place] [phone] Jan, Acute bacterial conjunctivit is H10.30 [facility] [address] [facility] [id number] [address] [place] [phone] 08 Dec, 2017 [facility] [address] [id number] 04 Dec, 2017 [facility] [address] [facility] [id number] [address] [place] [phone] 17 Nov, 2017 [facility] [address] [place] [id number] [address] [place] [id number] 07 Nov, 2017 Obstructive sleep apnea G47. 33 ; Morbid obesity E66.01 and Gastroesophageal reflux disease, esophagitis presence not specified K21.9 [facility] [address] [id number] [address] [place] [id number] 06 Nov, 2017 Encounter for examination of eyes and vision without abnormal findings Z01.00 [facility] [address] [place] [id number] [address] [place] [id number] 31 Oct, 2017 Thyroid nodule E04.1 and Scr eening for breast cancer Z12.31 [facility] [address] [place] [id number] [address] [place] [id number] Oct, History of DVT (deep vein th rombosis) Z86.718 ; Thyroid nodule E04.1 and Gastroesophageal reflux disease, esophagitis presence not specified K21.9 [place] [address] [id number] [address] [place] [phone] Oct, [place] [address] [facility] [id number] [address] [place] [phone] Sep, [place] [address] [id number] [address] [place] [phone] Aug, [place] [address] [place] [id number] [place] [phone] Aug, [place] [address] [place] [id number] [place] [phone] Aug, Acute pain of left shoulder M25.512 and Thyroid nodule E04.1 [place] [address] [place] [id number] [address] [place] [id number] July, Superior glenoid labrum lesi on of left shoulder, subsequent encounter S43.432D [place] [address] [place] [id number] [place] [phone] Jun, History of DVT (deep vein th rombosis) Z86.718 [place] [address] [facility] [id number] [address] [place] [id number] Jun, History of DVT (deep vein th rombosis) Z86.718 [place] [address] 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 [id number] [address] [place] [phone] May, intermediate (current) use of a nticoagulants Z79.01 [place] [address] [id number] [address] [place] [id number] Apr, intermediate (current) use of a nticoagulants Z79.01 [place] [address] [id number] [address] [place] [id number] Apr, 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 [place] [address] [id number] [address] [place] [id number] Apr, 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 [facility] [address] [id number] [address] [place] [phone] Apr, [facility] [address] [id number] [address] [place] [id number] 16 Apr, 2017 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 [place] [address] [facility] [id number] [address] [place] [id number] 13 Apr, 2017 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 [facility] [address] [id number] [address] [place] [id number] Apr, intermediate (current) use of a nticoagulants Z79.01 [facility] [address] [id number] [address] [place] [id number] Apr, 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 [facility] [address] [id number] [address] [place] [id number] Apr, intermediate (current) use of a nticoagulants Z79.01 [facility] [address] [id number] [address] [place] [phone] Apr, intermediate (current) use of a nticoagulants Z79.01 [facility] [address] [id number] [address] [place] [phone] Mar, intermediate (current) use of a nticoagulants Z79.01 [facility] [address] [id number] [address] [place] [phone] Mar, [facility] [address] [id number] [address] [place] [phone] Mar, intermediate (current) use of a nticoagulants Z79.01 [facility] [address] [id number] [address] [place] [id number] Jan, Dental examination Z01.20 [facility] [address] [id number] [address] [place] [id number] Jan, [facility] [address] [id number] [address] [place] [id number] Jan, intermediate (current) use of a nticoagulants Z79.01 [facility] [address] [id number] [address] [place] [id number] Jan, History of DVT (deep vein th rombosis) Z86.718 [facility] [address] [id number] [address] [place] [phone] Jan, Generalized anxiety disorder F41.1 and Peripheral edema R60.9 [facility] [address] [id number] [address] [place] [id number] Nov, History of DVT (deep vein th rombosis) Z86.718 [facility] [address] [id number] [address] [place] [id number] Nov, intermediate (current) use of a nticoagulants Z79.01 [facility] [address] [id number] [address] [place] [phone] Nov, Acute non-recurrent maxillar y sinusitis J01.00 [facility] [address] [id number] [address] [place] [phone] Oct, intermediate (current) use of a nticoagulants Z79.01 [facility] [address] [id number] [address] [place] [id number] Oct, Personal history of venous t hrombosis and embolism Z86.718 [facility] [address] [id number] [address] [place] [phone] Sep, [facility] [address] [id number] [address] [place] [id number] Sep, Personal history of venous t hrombosis and embolism Z86.718 [facility] [address] [id number] [address] [place] [phone] Sep, intermediate (current) use of a nticoagulants Z79.01 [facility] [address] [id number] [address] [place] [id number] Sep, 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 [facility] [address] [id number] [address] [place] [phone] Sep, Generalized anxiety disorder F41.1 and History of DVT (deep vein thrombosis) Z86.718 [place] [address] [facility] [id number] [address] [place] [id number] Aug, History of DVT (deep vein th rombosis) Z86.718 ; Generalized anxiety disorder F41.1 ; intermediate (current) use of anticoagulants Z79.01 ; Pelvic pain R10.2 ; Hypertriglyceridemia E78.1 ; Excessive daytime sleepiness G47.19 ; Colon cancer screening Z12.11 ; Screening for breast cancer Z12.39 ; Peripheral edema R60.9 and Gastroesophageal reflux disease, esophagitis presence not specified K21.9 [place] [address] [phone] Aug, [place] [address] [place] [id number] [place] [phone] July, [place] [address] [phone] July, History of DVT (deep vein th rombosis) Z86.718 [place] [address] [place] [id number] [address] [place] [address] Jun, Generalized anxiety disorder F41.1 [place] [address] [place] [id number] [address] [place] [id number] Jun, History of DVT (deep vein th rombosis) Z86.718 [place] [address] [place] [id number] [address] [place] [id number] Jun, History of DVT (deep vein th rombosis) Z86.718 [place] [address] [place] [id number] [address] [place] [phone] Jun, History of DVT (deep vein th rombosis) Z86.718 [place] [address] [place] [id number] [address] [place] [id number] Jun, History of DVT (deep vein th rombosis) Z86.718 [place] [address] [place] [id number] [address] [place] [id number] May, History of DVT (deep vein th rombosis) Z86.718 [facility] [address] [id number] [address] [place] [phone] May, 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 [facility] [address] [id number] [address] [place] [id number] May, 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 [facility] [address] [id number] [address] [place] [phone] May, History of DVT (deep vein th rombosis) Z86.718 [facility] [address] [id number] [address] [place] [phone] 27 Apr, 2016 Bacterial conjunctivitis of left eye H10.9 and H/O motion sickness Z87.898 [facility] [address] [id number] [address] [place] [id number] 24 Apr, 2016 History of DVT (deep vein th rombosis) Z86.718 [place] [address] [id number] [address] [place] [id number] 23 Apr, 2016 History of DVT (deep vein th rombosis) Z86.718 [facility] [address] [id number] [address] [place] [id number] 15 Apr, 2016 History of DVT (deep vein th rombosis) Z86.718 [facility] [address] [id number] [address] [place] [phone] 14 Apr, 2016 intermediate (current) use of a nticoagulants Z79.01 [facility] [address] [id number] [address] [place] [phone] Mar, [facility] [address] [id number] [address] [place] [id number] Mar, intermediate (current) use of a nticoagulants Z79.01 [facility] [address] [id number] [address] [place] [id number] Mar, Hypertriglyceridemia E78.1 a nd 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 [facility] [address] [id number] [address] [place] [id number] Feb, 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 [facility] [address] [id number] [address] [place] [phone] Feb, intermediate (current) use of a nticoagulants Z79.01 [facility] [address] [id number] [address] [place] [phone] Feb, 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 [facility] [address] [id number] [address] [place] [phone] Dec, [facility] [address] [id number] [address] [place] [phone] Nov, [place] [address] [id number] [address] [place] [phone] Nov, History of DVT (deep vein th rombosis) Z86.718 ; Tremulousness R25.1 ; Generalized anxiety disorder F41.1 ; Peripheral edema R60.9 and Hypertriglyceridemia E78.1 [facility] [address] [id number] [address] [place] [phone] Oct, History of DVT (deep vein th rombosis) Z86.718 [place] [address] [id number] [address] [place] [phone] Oct, [place] [address] [facility] [id number] [address] [place] [phone] Sep, History of DVT (deep vein th rombosis) Z86.718 [place] [address] [id number] [address] [place] [phone] Sep, intermediate (current) use of a nticoagulants Z79.01 [place] [address] [id number] [address] [place] [phone] July, [facility] [address] [id number] [address] [place] [phone] July, 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 [place] [address] [id number] [address] [place] [phone] July, 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 [place] [address] [id number] [address] [place] [phone] Jun, 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 [facility] [place] [address] [facility] [id number] [address] [place] [phone] Jun, Coccyx pain M53.3 ; Encounte r for therapeutic drug level monitoring Z51.81 and 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 current use 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.01 [place] [address] [id number] [address] [place] [id number] May, Abnormal mammogram R92.8 [facility] [address] [id number] [address] [place] [phone] May, [facility] [place] [address] [facility] [facility] [id number] [address] [place] [phone] May, Acute vaginitis N76.0 and En counter for other screening for malignant neoplasm of breast Z12.39 [place] [address] [facility] [id number] [address] [place] [phone] Apr, [place] [address] [facility] [id number] [address] [place] [phone] Apr, [facility] [address] [facility] [id number] [address] [place] [id number] Apr, Peripheral edema R60.9 [facility] [address] [id number] [address] [place] [phone] Apr, 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 [facility] [address] [id number] [address] [place] [id number] Apr, Peripheral edema R60.9 and L jose martin term (current) 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 Z79.01 [facility] [address] [id number] [address] [place] [phone] Apr, 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 [facility] [address] [id number] [address] [place] [id number] Apr, [facility] [address] [id number] [address] [place] [id number] Apr, intermediate (current) use of a nticoagulants Z79.01 [facility] [address] [id number] [address] [place] [id number] Apr, Peripheral edema R60.9 [facility] [address] [id number] [address] [place] [id number] Mar, 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 [facility] [address] [id number] [address] [place] [id number] Mar, intermediate (current) use of a nticoagulants Z79.01 and Hypertriglyceridemia E78.1 [facility] [address] [id number] [address] [place] [id number] Mar, 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 [facility] [address] [id number] [address] [place] [id number] Mar, intermediate (current) use of a nticoagulants Z79.01 [facility] [address] [id number] [address] [place] [id number] Mar, [facility] [address] [id number] [address] [place] [id number] Mar, 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 ; Hypertriglyceridemia E78.1 ; Personal history of venous thrombosis and embolism Z86.718 and Lump R22.9 [place] [address] [id number] [address] [place] [id number] Mar, Personal history of venous t hrombosis and embolism Z86.718 [place] [address] [id number] [address] [place] [id number] Mar, Personal history of venous t hrombosis and embolism Z86.718 [place] [address] [id number] [address] [place] [id number] Mar, [place] [address] [id number] [address] [place] [id number] Dec, Personal history of venous t hrombosis and embolism Z86.718 [place] [address] [id number] [address] [place] [id number] Dec, Personal history of venous t hrombosis and embolism V12.51 [place] [address] [id number] [address] [place] [id number] 28 Nov, 2014 Personal history of venous t hrombosis and embolism V12.51 [place] [address] [id number] [address] [place] [id number] 25 Nov, 2014 Personal history of venous t hrombosis and embolism V12.51 [place] [address] [id number] [address] [place] [id number] 17 Nov, 2014 Personal history of venous t hrombosis and embolism V12.51 [place] [address] [id number] [address] [place] [id number] 11 Nov, 2014 Personal history of venous t hrombosis and embolism V12.51 [place] [address] [id number] [address] [place] [id number] Nov, [facility] [address] [id number] [address] [place] [id number] Oct, Dysuria 788.1 [facility] [address] [id number] [address] [place] [id number] Oct, Personal history of venous t hrombosis and embolism V12.51 [facility] [address] [id number] [address] [place] [id number] Oct, [facility] [address] [id number] [address] [place] [id number] Oct, Personal history of venous t hrombosis and embolism V12.51 [place] [address] [id number] [address] [place] [id number] Sep, Personal history of venous t hrombosis and embolism V12.51 [place] [address] [id number] [address] [place] [id number] Sep, Personal history of venous t hrombosis and embolism V12.51 [place] [address] [id number] [address] [place] [id number] Aug, Personal history of venous t hrombosis and embolism V12.51 [place] [address] [id number] [address] [place] [id number] Aug, Personal history of venous t hrombosis and embolism V12.51 [facility] [address] [id number] [address] [place] [phone] Aug, Personal history of venous t hrombosis and embolism V12.51 [place] [address] [id number] [address] [place] [id number] July, Generalized anxiety disorder 300.02 ; Abdominal pain, left lower quadrant 789.04 and Personal history of venous thrombosis and embolism V12.51 [place] [address] [id number] [address] [place] [id number] Jun, [facility] [address] [id number] [address] [place] [address], [place] [id number] Jun, [facility] [address] [id number] [address] [place] [address], [place] [address] May, [facility] [address] [id number] [address] [place] [address], [place] [address] May, [facility] [address] [id number] [address] [place] [address], [place] [address] May, [facility] [address] [id number] [address] [place] [address], [place] [address] May, [facility] [address] [id number] [address] [place] [address], [place] [address] May, [facility] [address] [id number] [address] [place] [address], [place] [address] May, [facility] [address] [id number] [address] [place] [address], [place] [address] May, [facility] [address] [id number] [address] [place] [address], [place] [address] May, [facility] [address] [id number] [address] [place] [address], [place] [address] Apr, [facility] [address] [id number] [address] [place] [address], [place] [address] Apr, [facility] [address] [id number] [address] [place] [address], [place] [address] Apr, [facility] [address] [id number] [address] [place] [address], [place] [address] Apr, [facility] [address] [id number] [address] [place] [address], [place] [address] Apr, [facility] [address] [id number] [address] [place] [address], [place] [address] Mar, [facility] [address] [id number] [address] [place] [address], [place] [id number] Mar, [facility] [address] [id number] [address] [place] [address], [place] [address] Mar, [facility] [address] [id number] [address] [place] [address], [place] [address] Mar, [facility] [address] [id number] [address] [place] [address], [place] [address] Mar, [facility] [address] [id number] [address] [place] [address], [place] [address] Mar, [facility] [address] [id number] [address] [place] [address], [place] [id number] Feb, [facility] [address] [id number] [address] [place] [address], [place] [id number] Feb, [facility] [address] [id number] [address] [place] [address], [place] [id number] Feb, [facility] [address] [id number] [address] [place] [address], [place] [id number] Feb, [facility] [address] [id number] [address] [place] [address], [place] [address] Feb, [facility] [address] [id number] [address] [place] [address], [place] [address] Feb, [facility] [address] [id number] [address] [place] [address], [place] [id number] Feb, [facility] [address] [id number] [address] [place] [address], [place] [address] Feb, [facility] [address] [id number] [address] [place] [address], [place] [address] Feb, [facility] [address] [id number] [address] [place] [address], [place] [address] Feb, [facility] [address] [id number] [address] [place] [address], [place] [address] Jan, [facility] [address] [id number] [address] [place] [address], [place] [address] Jan, [facility] [address] [id number] [address] [place] [address], [place] [address] Jan, [facility] [address] [id number] [address] [place] [address], [place] [id number] Jan, [facility] [address] [id number] [address] [place] [address], [place] [id number] Jan, [facility] [address] [id number] [address] [place] [address], [place] [address] Jan, [facility] [address] [id number] [address] [place] [address], [place] [address] Jan, [facility] [address] [id number] [address] [place] [address], [place] [address] Jan, [facility] [address] [id number] [address] [place] [address], [place] [address] Jan, [facility] [address] [id number] [address] [place] [address], [place] [address] Jan, [facility] [address] [id number] [address] [place] [address], [place] [id number] Dec, [facility] [address] [id number] [address] [place] [address], [place] [address] Dec, [facility] [address] [id number] [address] [place] [address], [place] [address] Dec, [facility] [address] [id number] [address] [place] [address], [place] [address] Dec, [facility] [address] [id number] [address] [place] [address], [place] [address] Dec, [facility] [address] [id number] [address] [place] [address], [place] [address] Dec, [facility] [address] [id number] [address] [place] [address], [place] [address] Dec, [facility] [address] [id number] [address] [place] [address], [place] [address] Dec, [facility] [address] [id number] [address] [place] [address], [place] [address] Dec, [facility] [address] [id number] [address] [place] [address], [place] [address] Dec, [facility] [address] [id number] [address] [place] [address], [place] [id number] Dec, [facility] [address] [id number] [address] [place] [address], [place] [id number] Dec, [facility] [address] [id number] [address] [place] [address], [place] [address] Dec, [facility] [address] [id number] [address] [place] [address], [place] [address] Dec, [facility] [address] [id number] [address] [place] [address], [place] [address] Dec, [facility] [address] [id number] [address] [place] [address], [place] [address] 30 Nov, 2013 [facility] [address] [id number] [address] [place] [address], [place] [id number] 30 Nov, 2013 [facility] [address] [id number] [address] [place] [address], [place] [address] 26 Nov, 2013 [facility] [address] [id number] [address] [place] [address], [place] [id number] 26 Nov, 2013 [facility] [address] [id number] [address] [place] [address], [place] [id number] 24 Nov, 2013 [facility] [address] [id number] [address] [place] [address], [place] [id number] 24 Nov, 2013 [facility] [address] [id number] [address] [place] [address], [place] [id number] 23 Nov, 2013 [facility] [address] [id number] [facility] [place] [address] 23 Nov, 2013 [facility] [address] [id number] [facility] [place] [address] 18 Nov, 2013 [facility] [address] [id number] [facility] [place] [address] 18 Nov, 2013 [facility] [address] [id number] [address] [place] [address], [place] [id number] 17 Nov, 2013 [facility] [address] [id number] [address] [place] [address], [place] [id number] 17 Nov, 2013 [facility] [address] [id number] [address] [place] [address], [place] [id number] 11 Nov, 2013 [facility] [address] [id number] [address] [place] [address], [place] [id number] 11 Nov, 2013 [facility] [address] [id number] [address] [place] [address], [place] [id number] 10 Nov, 2013 [facility] [address] [id number] [address] [place] [address], [place] [id number] 10 Nov, 2013 [facility] [address] [id number] [address] [place] [address], [place] [address] 08 Nov, 2013 [facility] [address] [id number] [address] [place] [address], [place] [id number] 08 Nov, 2013 [facility] [address] [id number] [address] [place] [address], [place] [address] 22 Sep, 2013 [facility] [address] [id number] [address] [place] [address], [place] [id number] 22 Sep, 2013 [facility] [address] [id number] [address] [place] [address], [place] [address] Sep, 2013 [facility] [address] [id number] [address] [place] [address], [place] [address] 11 Sep, 2013 [facility] [address] [id number] [address] [place] [address], [place] [address] Sep, [facility] [address] [id number] [address] [place] [address], [place] [address] Sep, [facility] [address] [id number] [address] [place] [address], [place] [address] Aug, [facility] [address] [id number] [address] [place] [address], [place] [id number] Aug, [facility] [address] [id number] [address] [place] [address], [place] [address] Aug, [facility] [address] [id number] [address] [place] [address], [place] [address] Aug, [facility] [address] [id number] [address] [place] [address], [place] [address] Aug, [facility] [address] [id number] [address] [place] [address], [place] [address] Aug, [facility] [address] [id number] [address] [place] [address], [place] [address] Aug, [facility] [address] [id number] [address] [place] [address], [place] [address] Aug, [facility] [address] [id number] [address] [place] [address], [place] [address] Aug, [facility] [address] [id number] [address] [place] [address], [place] [address] Aug, [facility] [address] [id number] [address] [place] [address], [place] [address] Aug, [facility] [address] [id number] [address] [place] [address], [place] [address] July, [facility] [address] [id number] [address] [place] [address], [place] [address] July, [facility] [address] [id number] [address] [place] [address], [place] [address] Jun, [facility] [address] [id number] [address] [place] [address], [place] [address] Jun, [facility] [address] [id number] [address] [place] [address], [place] [id number] 18 Jun, 2013 [facility] [address] [id number] [address] [place] [address], [place] [id number] 18 Jun, 2013 [facility] [address] [id number] [address] [place] [address], [place] [address] Jun, [facility] [address] [id number] [address] [place] [address], [place] [address] 18 Jun, 2013 [facility] [address] [id number] [address] [place] [address], [place] [address] Jun, [facility] [address] [id number] [address] [place] [address], [place] [address] Jun, [facility] [address] [id number] [address] [place] [address], [place] [address] Jun, [facility] [address] [id number] [address] [place] [address], [place] [address] Jun, [facility] [address] [id number] [address] [place] [address], [place] [address] Jun, [facility] [address] [id number] [address] [place] [address], [place] [address] Jun, [facility] [address] [id number] [address] [place] [address], [place] [address] May, [facility] [address] [id number] [address] [place] [address], [place] [address] May, [facility] [address] [id number] [address] [place] [address], [place] [address] May, [facility] [address] [id number] [address] [place] [address], [place] [address] May, [facility] [address] [id number] [address] [place] [address], [place] [address] 19 May, 2013 [facility] [address] [id number] [address] [place] [address], [place] [address] May, [facility] [address] [id number] [address] [place] [address], [place] [address] May, [facility] [address] [id number] [address] [place] [address], [place] [address] May, [facility] [address] [id number] [address] [place] [address], [place] [id number] May, [facility] [address] [id number] [address] [place] [address], [place] [address] May, [facility] [address] [id number] [address] [place] [address], [place] [address] May, [facility] [address] [id number] [address] [place] [address], [place] [address] May, [facility] [address] [id number] [address] [place] [address], [place] [address] Apr, [facility] [address] [id number] [address] [place] [address], [place] [address] Apr, [facility] [address] [id number] [address] [place] [address], [place] [id number] Apr, [facility] [address] [id number] [address] [place] [address], [place] [address] Apr, [facility] [address] [id number] [address] [place] [address], [place] [address] Apr, [facility] [address] [id number] [address] [place] [address], [place] [address] Apr, [facility] [address] [id number] [address] [place] [address], [place] [address] Apr, [facility] [address] [id number] [address] [place] [address], [place] [id number] Apr, [facility] [address] [id number] [address] [place] [address], [place] [address] Apr, 2013 [facility] [address] [id number] [address] [place] [address], [place] [id number] Apr, [facility] [address] [id number] [address] [place] [address], [place] [id number] Apr, 2013 [facility] [address] [id number] [address] [place] [address], [place] [id number] Apr, 2013 [facility] [address] [id number] [address] [place] [address], [place] [id number] Apr, [facility] [address] [id number] [address] [place] [address], [place] [id number] Apr, [facility] [address] [id number] [address] [place] [address], [place] [id number] Apr, [facility] [address] [id number] [address] [place] [address], [place] [id number] Apr, [facility] [address] [id number] [address] [place] [address], [place] [id number] 13 Apr, 2013 [facility] [address] [id number] [address] [place] [address], [place] [id number] Jan, [facility] [address] [id number] [address] [place] [address], [place] [id number] Jan, [facility] [address] [id number] [address] [place] [address], [place] [id number] Jan, [facility] [address] [id number] [address] [place] [address], [place] [id number] Jan, [facility] [address] [id number] [address] [place] [address], [place] [id number] Jan, [facility] [address] [id number] [address] [place] [address], [place] [id number] Jan, [facility] [address] [id number] [address] [place] [address], [place] [id number] Jan, [facility] [address] [id number] [address] [place] [address], [place] [id number] Dec, [facility] [address] [id number] [address] [place] [address], [place] [id number] Dec, [facility] [address] [id number] [address] [place] [address], [place] [id number] Dec, [facility] [address] [id number] [address] [place] [address], [place] [id number] Nov, [facility] [address] [id number] [address] [place] [address], [place] [id number] Nov, [facility] [address] [id number] [address] [place] [address], [place] [id number] Nov, [facility] [address] [id number] [address] [place] [address], [place] [id number] Nov, [facility] [address] [id number] [address] [place] [address], [place] [id number] Oct, [facility] [address] [id number] [address] [place] [address], [place] [id number] Oct, [facility] [address] [id number] [address] [place] [address], [place] [id number] Oct, [facility] [address] [id number] [address] [place] [address], [place] [id number] Oct, [facility] [address] [id number] [address] [place] [address], [place] [id number] Oct, [facility] [address] [id number] [address] [place] [address], [place] [id number] Sep, [facility] [address] [id number] [address] [place] [address], [place] [id number] Sep, [facility] [address] [id number] [address] [place] [address], [place] [id number] Sep, [facility] [address] [id number] [address] [place] [address], [place] [id number] Sep, [facility] [address] [id number] [address] [place] [address], [place] [id number] Sep, [facility] [address] [id number] [address] [place] [address], [place] [id number] Sep, [facility] [address] [id number] [address] [place] [address], [place] [id number] Sep, [facility] [address] [id number] [address] [place] [address], [place] [id number] Aug, [facility] [address] [id number] [address] [place] [address], [place] [id number] Aug, [facility] [address] [id number] [address] [place] [address], [place] [id number] July, [facility] [address] [id number] [address] [place] [address], [place] [id number] Jun, [facility] [address] [id number] [address] [place] [address], [place] [id number] Jun, [facility] [address] [id number] [address] [place] [address], [place] [id number] Jun, [facility] [address] [id number] [address] [place] [address], [place] [id number] Apr, [facility] [address] [id number] [address] [place] [address], [place] [id number] Apr, [facility] [address] [id number] [address] [place] [address], [place] [id number] Apr, [facility] [address] [id number] [address] [place] [address], [place] [id number] Mar, [facility] [address] [address] [id number] [address] [place] [address], [place] [id number] Mar, [facility] [address] [id number] [address] [place] [address], [place] [id number] Mar, [facility] [address] [id number] [address] [place] [address], [place] [id number] Mar, [facility] [address] [id number] [address] [place] [address], [place] [id number] Mar, [facility] [address] [id number] [address] [place] [address], [place] [id number] 14 Feb, 2012 [facility] [address] [id number] [address] [place] [address], [place] [id number] 14 Feb, 2012 [facility] [address] [id number] [address] [place] [address], [place] [id number] Jan, [facility] [address] [id number] [address] [place] [address], [place] [id number] Jan, [facility] [address] [id number] [address] [place] [address], [place] [id number] Jan, [facility] [address] [id number] [address] [place] [address], [place] [id number] Jan, [facility] [address] [id number] [address] [place] [address], [place] [id number] Jan, [facility] [address] [id number] [address] [place] [address], [place] [id number] Jan, [facility] [address] [id number] [address] [place] [address], [place] [id number] Jan, [facility] [address] [id number] [address] [place] [address], [place] [id number] Dec, [facility] [address] [id number] [address] [place] [address], [place] [id number] Dec, [facility] [address] [id number] [address] [place] [address], [place] [id number] Dec, [facility] [address] [id number] [address] [place] [address], [place] [id number] Dec, [facility] [address] [id number] [address] [place] [address], [place] [id number] Dec, [facility] [address] [id number] [address] [place] [address], [place] [id number] Dec, [facility] [address] [id number] [address] [place] [address], [place] [id number] Dec, [facility] [address] [id number] [address] [place] [address], [place] [id number] Dec, [facility] [address] [id number] [address] [place] [address], [place] [id number] Dec, [facility] [address] [id number] [address] [place] [address], [place] [id number] Dec, [facility] [address] [id number] [address] [place] [address], [place] [id number] Oct, [facility] [address] [id number] [address] [place] [address], [place] [id number] Oct, [facility] [address] [id number] [address] [place] [address], [place] [id number] Aug, [facility] [address] [id number] [address] [place] [address], [place] [id number] Aug, [facility] [address] [id number] [address] [place] [address], [place] [id number] July, [facility] [address] [id number] [address] [place] [address], [place] [id number] Jun, [facility] [address] [id number] [address] [place] [address], [place] [id number] Jun, [facility] [address] [id number] [address] [place] [address], [place] [id number] May, [facility] [address] [id number] [address] [place] [address], [place] [id number] Apr, [facility] [address] [id number] [address] [place] [address], [place] [id number] Apr, [facility] [address] [id number] [address] [place] [address], [place] [id number] 19 Mar, 2011 [facility] [address] [id number] [address] [place] [address], [place] [id number] 16 Mar, 2011 [facility] [address] [id number] [address] [place] [address], [place] [id number] 19 Feb, 2011 [facility] [address] [id number] [address] [place] [address], [place] [id number] 15 Feb, 2011 [facility] [address] [id number] [address] [place] [address], [place] [id number] 13 Feb, 2011 [facility] [address] [id number] [address] [place] [address], [place] [id number] 13 Feb, 2011 [facility] [address] [id number] [address] [place] [address], [place] [id number] Jan, [facility] [address] [id number] [address] [place] [address], [place] [id number] 17 Dec, 2010 [facility] [address] [id number] [address] [place] [address], [place] [id number] 08 Feb, 2010 [facility] [address] [id number] [address] [place] [address], [place] [id number] Feb, [facility] [address] [id number] [address] [place] [address], [place] [id number] Feb, [facility] [address] [id number] [address] [place] [address], [place] [id number] Feb, [facility] [address] [id number] [address] [place] [address], [place] [id number] 15 Dec, 2009 [facility] [address] [id number] [address] [place] [address], [place] [id number] 15 Dec, 2009 [facility] [address] [id number] [address] [place] [address], [place] [id number] Oct, [facility] [address] [id number] [address] [place] [address], [place] [id number] Jun, [facility] [address] [facility] [id number] [address] [place] [id number] Feb, [facility] [address] [facility] [id number] [address] [place] [id number] Feb, [facility] [address] [facility] [id number] [address] [place] [id number] Feb, [facility] [address] [facility] [id number] [address] [place] [id number] Dec, IMMUNIZATIONS No Known Immunizations SOCIAL HISTORY [...] 1985, 1987 Surgical History cholecystectomy Surgical History Isaban Filter 06/2009 Surgical History Left leg exploratory surgery r/t clot Surgical History left shoulder surgery 09/14/17 Surgical History lap band removed 12/2017 Surgical History gastic sleeve 01/2018 Surgical History Back surgery 2019 Hospitalization History Ruptured Ovarian Cyst with abd bleed ing 11/2009 Hospitalization History Broken Back 06/2018
--- OUTSIDE RECORDS SUMMARY | 2019-10-19 12:33 | XMS REPORT ---
Author Author KIANA Mary Jane RAMIREZ 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 Active 609803127 Problem Hypertriglyceridemia E78.1 Active 793284116 Problem 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 Active 023053024 Problem Pelvic pain R10.2 Active 96994283 Problem Peripheral edema R60.9 Active 271 127455 Problem Moderate episode of recurrent major depressive disorder F33.1 Active 862380010 Problem Presence of IVC filter Z95.828 Active 346335174 Problem Vitamin D deficiency E55.9 Active 74539254 Problem Generalized anxiety disorder F41.1 A ctive 565968056 Problem Excessive daytime sleepiness G47.19 A ctive 440202254790 Problem Gastroesophageal reflux disease, esophagitis pre sence not specified K21.9 Active 897405813 Problem Thyroid nodule E04.1 Active 98759 5005 Problem Morbid obesity E66.01 Active 84056 6002 ALLERGIES No Information ENCOUNTERS Encounter Location Date Diagnosis [facility] [address] [facility] [id number] [address] [place] [id number] Oct, [facility] [address] [facility] [id number] [address] [place] [phone] Oct, Morbid obesity E66.01 [facility] [address] [facility] [id number] [address] [place] [phone] Oct, Hypertriglyceridemia E78.1 [place] [address] [id number] [address] [place] [phone] Oct, [facility] [address] [id number] [address] [place] [phone] Oct, Hypertriglyceridemia E78.1 [facility] [address] [id number] [address] [place] [phone] Sep, Hypertriglyceridemia E78.1 a nd Vitamin D deficiency E55.9 [facility] [address] [id number] [address] [place] [phone] Sep, [facility] [address] [id number] [address] [place] [phone] Sep, Morbid obesity E66.01 ; Mode rate episode of recurrent major depressive disorder F33.1 ; Hypertriglyceridemia E78.1 and Vitamin D deficiency E55.9 [facility] [address] [facility] [id number] [address] [place] [phone] Aug, [facility] [address] [id number] [address] [place] [phone] July, [facility] [address] [facility] [id number] [address] [place] [phone] July, [facility] [address] [facility] [id number] [address] [place] [phone] Jun, [facility] [address] [facility] [id number] [address] [place] [phone] Jun, [facility] [address] [facility] [id number] [address] [place] [phone] Jun, Closed compression fracture of L3 lumbar vertebra with routine healing, subsequent encounter S32.030D and Drug-induced constipation K59.03 [facility] [address] [id number] [address] [place] [phone] Jun, [facility] [address] [facility] [id number] [address] [place] [phone] Jun, [facility] [address] [facility] [id number] [address] [place] [phone] 19 Apr, 2018 [facility] [address] [facility] [id number] [place] [phone] 18 Apr, [address] [facility] [address] [facility] [id number] [address] [place] [phone] 12 Apr, 2018 Morbid obesity E66.01 ; Hype rtriglyceridemia E78.1 ; Gastroesophageal reflux disease, esophagitis presence not specified K21.[address]50 [facility] [address] [facility] [id number] [address] [place] [phone] 22 Feb, 2018 [facility] [address] [place] [id number] [place] [phone] Feb, [facility] [address] [facility] [id number] [address] [place] [phone] Jan, Acute bacterial conjunctivit is H10.30 [facility] [address] [facility] [id number] [address] [place] [id number] 08 Dec, 2017 [facility] [address] [address] 04 Dec, 2017 [facility] [address] [facility] [id number] [address] [place] [id number] 17 Nov, 2017 [facility] [address] [place] [id number] [address] [place] [phone] 07 Nov, 2017 Obstructive sleep apnea G47. 33 ; Morbid obesity E66.01 and Gastroesophageal reflux disease, esophagitis presence not specified K21.9 [facility] [address] [id number] [address] [place] [id number] 06 Nov, 2017 Encounter for examination of eyes and vision without abnormal findings Z01.00 [facility] [address] [place] [id number] [address] [place] [phone] 31 Oct, 2017 Thyroid nodule E04.1 and Scr eening for breast cancer Z12.31 [facility] [address] [place] [id number] [address] [place] [phone] Oct, History of DVT (deep vein th rombosis) Z86.718 ; Thyroid nodule E04.1 and Gastroesophageal reflux disease, esophagitis presence not specified K21.9 [place] [address] [id number] [address] [place] [phone] Oct, [place] [address] [facility] [id number] [address] [place] [phone] Sep, [place] [address] [id number] [address] [place] [phone] Aug, [place] [address] [place] [id number] [place] [phone] Aug, [place] [address] [place] [id number] [place] [phone] Aug, Acute pain of left shoulder M25.512 and Thyroid nodule E04.1 [place] [address] [place] [id number] [address] [place] [phone] July, Superior glenoid labrum lesi on of left shoulder, subsequent encounter S43.432D [place] [address] [place] [id number] [place] [phone] Jun, History of DVT (deep vein th rombosis) Z86.718 [place] [address] [facility] [id number] [address] [place] [phone] Jun, History of DVT (deep vein th rombosis) Z86.718 [place] [address] [facility] [id number] [address] [place] [phone] Jun, Impingement syndrome, should er, left M75.42 [place] [address] [place] [id number] [address] [place] [phone] May, Subacromial bursitis of left shoulder joint M75.52 [place] [address] [place] [id number] [address] [place] [phone] May, [facility] [address] [id number] [address] [place] [phone] May, Hypertriglyceridemia E78.1 ; [employer] (current) use of anticoagulants Z79.01 and Excessive daytime sleepiness G47.19 [facility] [address] [facility] [id number] [address] [place] [phone] May, History of DVT (deep vein th rombosis) Z86.718 ; Generalized anxiety disorder F41.1 ; Hypertriglyceridemia E78.1 ; [employer] (current) use of anticoagulants Z79.01 ; Subacromial bursitis of left shoulder joint M75.52 and Excessive daytime sleepiness G47.19 [place] [address] [id number] [address] [place] [phone] May, [place] [address] [facility] [id number] [address] [place] [phone] May, halfway (current) use of a nticoagulants Z79.01 [place] [address] [id number] [address] [place] [address] Apr, halfway (current) use of a nticoagulants Z79.01 [place] [address] [id number] [address] [place] [id number] Apr, [employer] (current) use of a nticoagulants Z79.01 [place] [address] [id number] [address] [place] [phone] Apr, [employer] (current) use of a nticoagulants Z79.01 [facility] [address] [id number] [address] [place] [phone] Apr, [facility] [address] [id number] [address] [place] [phone] 16 Apr, 2017 [employer] (current) use of a nticoagulants Z79.01 [place] [address] [facility] [id number] [address] [place] [phone] 13 Apr, 2017 [employer] (current) use of a nticoagulants Z79.01 [facility] [address] [id number] [address] [place] [phone] Apr, halfway (current) use of a nticoagulants Z79.01 [facility] [address] [id number] [address] [place] [phone] Apr, [employer] (current) use of a nticoagulants Z79.01 [facility] [address] [id number] [address] [place] [phone] Apr, halfway (current) use of a nticoagulants Z79.01 [facility] [address] [id number] [address] [place] [phone] Apr, halfway (current) use of a nticoagulants Z79.01 [facility] [address] [id number] [address] [place] [phone] Mar, halfway (current) use of a nticoagulants Z79.01 [facility] [address] [id number] [address] [place] [phone] Mar, [facility] [address] [id number] [address] [place] [phone] Mar, halfway (current) use of a nticoagulants Z79.01 [facility] [address] [id number] [address] [place] [id number] Jan, Dental examination Z01.20 [facility] [address] [id number] [address] [place] [id number] Jan, [facility] [address] [id number] [address] [place] [phone] Jan, halfway (current) use of a nticoagulants Z79.01 [facility] [address] [id number] [address] [place] [phone] Jan, History of DVT (deep vein th rombosis) Z86.718 [facility] [address] [id number] [address] [place] [phone] Jan, Generalized anxiety disorder F41.1 and Peripheral edema R60.9 [facility] [address] [id number] [address] [place] [phone] Nov, History of DVT (deep vein th rombosis) Z86.718 [facility] [address] [id number] [address] [place] [phone] Nov, halfway (current) use of a nticoagulants Z79.01 [facility] [address] [id number] [address] [place] [phone] Nov, Acute non-recurrent maxillar y sinusitis J01.00 [facility] [address] [id number] [address] [place] [phone] Oct, halfway (current) use of a nticoagulants Z79.01 [facility] [address] [id number] [address] [place] [address] Oct, Personal history of venous t hrombosis and embolism Z86.718 [facility] [address] [id number] [address] [place] [phone] Sep, [facility] [address] [id number] [address] [place] [phone] Sep, Personal history of venous t hrombosis and embolism Z86.718 [facility] [address] [id number] [address] [place] [phone] Sep, halfway (current) use of a nticoagulants Z79.01 [facility] [address] [id number] [address] [place] [phone] Sep, [employer] (current) use of a nticoagulants Z79.01 [facility] [address] [id number] [address] [place] [phone] Sep, Generalized anxiety disorder F41.1 and History of DVT (deep vein thrombosis) Z86.718 [place] [address] [facility] [id number] [address] [place] [address] Aug, History of DVT (deep vein th rombosis) Z86.718 ; Generalized anxiety disorder F41.1 ; halfway (current) use of anticoagulants Z79.01 ; Pelvic pain R10.2 ; Hypertriglyceridemia E78.1 ; Excessive daytime sleepiness G47.19 ; Colon cancer screening Z12.11 ; Screening for breast cancer Z12.39 ; Peripheral edema R60.9 and Gastroesophageal reflux disease, esophagitis presence not specified K21.9 [place] [address] [address] Aug, [place] [address] [place] [id number] [place] [phone] July, [place] [address] [phone] July, History of DVT (deep vein th rombosis) Z86.718 [place] [address] [place] [id number] [address] [place] [phone] Jun, Generalized anxiety disorder F41.1 [place] [address] [place] [id number] [address] [place] [phone] Jun, History of DVT (deep vein th rombosis) Z86.718 [place] [address] [place] [id number] [address] [place] [address] Jun, History of DVT (deep vein th rombosis) Z86.718 [place] [address] [place] [id number] [address] [place] [id number] Jun, History of DVT (deep vein th rombosis) Z86.718 [place] [address] [place] [id number] [address] [place] [id number] Jun, History of DVT (deep vein th rombosis) Z86.718 [place] [address] [place] [id number] [address] [place] [address] May, History of DVT (deep vein th rombosis) Z86.718 [facility] [address] [id number] [address] [place] [phone] May, [employer] (current) use of a nticoagulants Z79.01 [facility] [address] [id number] [address] [place] [phone] May, [employer] (current) use of a nticoagulants Z79.01 [facility] [address] [id number] [address] [place] [phone] May, History of DVT (deep vein th rombosis) Z86.718 [facility] [address] [id number] [address] [place] [id number] 27 Apr, 2016 Bacterial conjunctivitis of left eye H10.9 and H/O motion sickness Z87.898 [facility] [address] [id number] [address] [place] [id number] 24 Apr, 2016 History of DVT (deep vein th rombosis) Z86.718 [place] [address] [id number] [address] [place] [phone] 23 Apr, 2016 History of DVT (deep vein th rombosis) Z86.718 [facility] [address] [id number] [address] [place] [phone] 15 Apr, 2016 History of DVT (deep vein th rombosis) Z86.718 [facility] [address] [id number] [address] [place] [phone] 14 Apr, 2016 halfway (current) use of a nticoagulants Z79.01 [facility] [address] [id number] [address] [place] [phone] Mar, [facility] [address] [id number] [address] [place] [phone] Mar, halfway (current) use of a nticoagulants Z79.01 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 [address] [id number] [address] [place] [phone] Feb, [employer] (current) use of a nticoagulants Z79.01 [facility] [address] [id number] [address] [place] [phone] Feb, halfway (current) use of a nticoagulants Z79.01 [facility] [address] [id number] [address] [place] [id number] Feb, [employer] (current) use of a nticoagulants Z79.01 [facility] [address] [id number] [address] [place] [phone] Dec, [facility] [address] [id number] [address] [place] [phone] Nov, [place] [address] [id number] [address] [place] [address] Nov, History of DVT (deep vein th rombosis) Z86.718 ; Tremulousness R25.1 ; Generalized anxiety disorder F41.1 ; Peripheral edema R60.[address] [facility] [address] [id number] [address] [place] [phone] Oct, History of DVT (deep vein th rombosis) Z86.718 [place] [address] [id number] [address] [place] [address] Oct, [place] [address] [facility] [id number] [address] [place] [phone] Sep, History of DVT (deep vein th rombosis) Z86.718 [place] [address] [id number] [address] [place] [phone] Sep, halfway (current) use of a nticoagulants Z79.01 [place] [address] [id number] [address] [place] [phone] July, [facility] [address] [id number] [address] [place] [phone] July, [employer] (current) use of a nticoagulants Z79.01 [place] [address] [id number] [address] [place] [phone] July, [employer] (current) use of a nticoagulants Z79.01 [place] [address] [facility] [id number] [address] [place] [phone] Jun, [employer] (current) use of a nticoagulants Z79.01 [facility] [place] [address] [facility] [id number] [address] [place] [address] Jun, Coccyx pain M53.3 ; Encounte r for therapeutic drug level monitoring Z51.81 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 [address] [id number] [address] [place] [phone] May, [facility] [place] [address] [facility] [id number] [address] [place] [address] May, Acute vaginitis N76.0 and En counter for other screening for malignant neoplasm of breast Z12.39 [place] [address] [facility] [id number] [address] [place] [phone] Apr, [place] [address] [facility] [id number] [address] [place] [phone] Apr, [facility] [address] [facility] [id number] [address] [place] [phone] Apr, Peripheral edema R60.9 [facility] [address] [id number] [address] [place] [phone] Apr, [employer] (current) use of a nticoagulants Z79.01 [facility] [address] [id number] [address] [place] [phone] Apr, Peripheral edema R60.9 and L jose martin term (current) 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 Z79.01 [facility] [address] [id number] [address] [place] [phone] Apr, [employer] (current) use of a nticoagulants Z79.01 [facility] [address] [id number] [address] [place] [phone] Apr, [facility] [address] [id number] [address] [place] [phone] Apr, halfway (current) use of a nticoagulants Z79.01 [facility] [address] [id number] [address] [place] [phone] Apr, Peripheral edema R60.9 [facility] [address] [id number] [address] [place] [phone] Mar, [employer] (current) use of a nticoagulants Z79.01 [facility] [address] [id number] [address] [place] [phone] Mar, halfway (current) use of a nticoagulants Z79.01 [address]1 [facility] [address] [id number] [address] [place] [phone] Mar, [employer] (current) use of a nticoagulants Z79.01 [facility] [address] [id number] [address] [place] [phone] Mar, halfway (current) use of a nticoagulants Z79.01 [facility] [address] [id number] [address] [place] [phone] Mar, [facility] [address] [id number] [address] [place] [phone] Mar, [employer] (current) use of a nticoagulants Z79.01 ; Hypertriglyceridemia E78.1 ; Personal history of venous thrombosis and embolism Z86.718 and Lump R22.9 [place] [address] [id number] [address] [place] [phone] Mar, Personal history of venous t hrombosis and embolism Z86.718 [place] [address] [id number] [address] [place] [id number] Mar, Personal history of venous t hrombosis and embolism Z86.718 [facility] [address] [id number] [address] [place] [phone] Mar, [facility] [address] [id number] [address] [place] [phone] Dec, Personal history of venous t hrombosis and embolism Z86.718 [facility] [address] [id number] [address] [place] [phone] Dec, Personal history of venous t hrombosis and embolism V12.51 [facility] [address] [id number] [address] [place] [phone] 28 Nov, 2014 Personal history of venous t hrombosis and embolism V12.51 [facility] [address] [id number] [address] [place] [phone] 25 Nov, 2014 Personal history of venous t hrombosis and embolism V12.51 [facility] [address] [id number] [address] [place] [id number] 17 Nov, 2014 Personal history of venous t hrombosis and embolism V12.51 [facility] [address] [id number] [address] [place] [phone] 11 Nov, 2014 Personal history of venous t hrombosis and embolism V12.51 [facility] [address] [id number] [address] [place] [phone] Nov, [facility] [address] [id number] [address] [place] [phone] Oct, D[address] [facility] [address] [id number] [address] [place] [phone] Oct, Personal history of venous t hrombosis and embolism V12.51 [facility] [address] [id number] [address] [place] [phone] Oct, [facility] [address] [id number] [address] [place] [phone] Oct, Personal history of venous t hrombosis and embolism V12.51 [facility] [address] [id number] [address] [place] [phone] Sep, Personal history of venous t hrombosis and embolism V12.51 [facility] [place] [address] [address] [id number] [address] [place] [address] Sep, Personal history of venous t hrombosis and embolism V12.51 [facility] [address] [id number] [address] [place] [address] Aug, Personal history of venous t hrombosis and embolism V12.51 [facility] [address] [id number] [address] [place] [address] Aug, Personal history of venous t hrombosis and embolism V12.51 [facility] [address] [id number] [address] [place] [address] Aug, Personal history of venous t hrombosis and embolism V12.51 [facility] [address] [id number] [address] [place] [address] July, Generalized anxiety disorder 300.02 ; Abdominal pain, left lower quadrant 789.04 and Personal history of venous thrombosis and embolism V12.51 [facility] [address] [id number] [address] [place] [address] Jun, [facility] [address] [id number] [address] [place] [address], [place] [address] Jun, [facility] [address] [id number] [address] [place] [address], [place] [address] May, [facility] [address] [id number] [address] [place] [address], [place] [address] May, [facility] [address] [id number] [address] [place] [address], [place] [address] May, [facility] [address] [id number] [address] [place] [address], [place] [address] May, [facility] [address] [id number] [address] [place] [address], [place] [address] May, [facility] [address] [id number] [address] [place] [address], [place] [address] May, [facility] [address] [id number] [address] [place] [address], [place] [address] May, [facility] [address] [id number] [address] [place] [address], [place] [address] May, [facility] [address] [id number] [address] [place] [address], [place] [address] Apr, [facility] [address] [id number] [address] [place] [address], [place] [address] Apr, [facility] [address] [id number] [address] [place] [address], [place] [address] Apr, [facility] [address] [id number] [address] [place] [address], [place] [address] Apr, [facility] [address] [id number] [address] [place] [address], [place] [address] Apr, [facility] [address] [id number] [address] [place] [address], [place] [address] Mar, [facility] [address] [id number] [address] [place] [address], [place] [address] Mar, [facility] [address] [id number] [address] [place] [address], [place] [address] Mar, [facility] [address] [id number] [address] [place] [address], [place] [address] Mar, [facility] [address] [id number] [address] [place] [address], [place] [address] Mar, [facility] [address] [id number] [address] [place] [address], [place] [address] Mar, [facility] [address] [id number] [address] [place] [address], [place] [address] Feb, [facility] [address] [id number] [address] [place] [address], [place] [address] Feb, [facility] [address] [id number] [address] [place] [address], [place] [address] Feb, [facility] [address] [id number] [address] [place] [address], [place] [address] Feb, [facility] [address] [id number] [address] [place] [address], [place] [address] Feb, [facility] [address] [id number] [address] [place] [address], [place] [address] Feb, [facility] [address] [id number] [address] [place] [address], [place] [address] Feb, [facility] [address] [id number] [address] [place] [address], [place] [address] Feb, [facility] [address] [id number] [address] [place] [address], [place] [address] Feb, [facility] [address] [id number] [address] [place] [address], [place] [address] Feb, [facility] [address] [id number] [address] [place] [address], [place] [address] Jan, [facility] [address] [id number] [address] [place] [address], [place] [address] Jan, [facility] [address] [id number] [address] [place] [address], [place] [address] Jan, [facility] [address] [id number] [address] [place] [address], [place] [address] Jan, [facility] [address] [id number] [address] [place] [address], [place] [address] Jan, [facility] [address] [id number] [address] [place] [address], [place] [address] Jan, [facility] [address] [id number] [address] [place] [address], [place] [address] Jan, [facility] [address] [id number] [address] [place] [address], [place] [address] Jan, [facility] [address] [id number] [address] [place] [address], [place] [address] Jan, [facility] [address] [id number] [address] [place] [address], [place] [address] Jan, [facility] [address] [id number] [address] [place] [address], [place] [address] Dec, [facility] [address] [id number] [address] [place] [address], [place] [address] Dec, [facility] [address] [id number] [address] [place] [address], [place] [address] Dec, [facility] [address] [id number] [address] [place] [address], [place] [address] Dec, [facility] [address] [id number] [address] [place] [address], [place] [address] Dec, [facility] [address] [id number] [address] [place] [address], [place] [address] Dec, [facility] [address] [id number] [address] [place] [address], [place] [address] Dec, [facility] [address] [id number] [address] [place] [address], [place] [address] Dec, [facility] [address] [id number] [address] [place] [address], [place] [address] Dec, [facility] [address] [id number] [address] [place] [address], [place] [address] Dec, [facility] [address] [id number] [address] [place] [address], [place] [address] Dec, [facility] [address] [id number] [address] [place] [address], [place] [address] Dec, [facility] [address] [id number] [address] [place] [address], [place] [address] Dec, [facility] [address] [id number] [address] [place] [address], [place] [address] Dec, [facility] [address] [id number] [address] [place] [address], [place] [address] Dec, [facility] [address] [id number] [address] [place] [address], [place] [address] 30 Nov, 2013 [facility] [address] [id number] [address] [place] [address], [place] [address] 30 Nov, 2013 [facility] [address] [id number] [address] [place] [address], [place] [address] 26 Nov, 2013 [facility] [address] [id number] [address] [place] [address], [place] [address] 26 Nov, 2013 [facility] [address] [id number] [address] [place] [address], [place] [address] 24 Nov, 2013 [facility] [address] [id number] [address] [place] [address], [place] [address] 24 Nov, 2013 [facility] [address] [id number] [address] [place] [address], [place] [address] 23 Nov, 2013 [facility] [address] [id number] [facility] [place] [address] 23 Nov, 2013 [facility] [address] [id number] [facility] [place] [address] 18 Nov, 2013 [facility] [address] [id number] [facility] [place] [address] 18 Nov, 2013 [facility] [address] [id number] [address] [place] [address], [place] [address] 17 Nov, 2013 [facility] [address] [id number] [address] [place] [address], [place] [address] 17 Nov, 2013 [facility] [address] [id number] [address] [place] [address], [place] [address] 11 Nov, 2013 [facility] [address] [id number] [address] [place] [address], [place] [address] 11 Nov, 2013 [facility] [address] [id number] [address] [place] [address], [place] [address] 10 Nov, 2013 [facility] [address] [id number] [address] [place] [address], [place] [address] 10 Nov, 2013 [facility] [address] [id number] [address] [place] [address], [place] [address] 08 Nov, 2013 [facility] [address] [id number] [address] [place] [address], [place] [address] 08 Nov, 2013 [facility] [address] [id number] [address] [place] [address], [place] [address] 22 Sep, 2013 [facility] [address] [id number] [address] [place] [address], [place] [address] 22 Sep, 2013 [facility] [address] [id number] [address] [place] [address], [place] [address] Sep, 2013 [facility] [address] [id number] [address] [place] [address], [place] [address] 11 Sep, 2013 [facility] [address] [id number] [address] [place] [address], [place] [address] Sep, [facility] [address] [id number] [address] [place] [address], [place] [address] Sep, [facility] [address] [id number] [address] [place] [address], [place] [address] Aug, [facility] [address] [id number] [address] [place] [address], [place] [address] Aug, [facility] [address] [id number] [address] [place] [address], [place] [address] Aug, [facility] [address] [id number] [address] [place] [address], [place] [address] Aug, [facility] [address] [id number] [address] [place] [address], [place] [address] Aug, [facility] [address] [id number] [address] [place] [address], [place] [address] Aug, [facility] [address] [id number] [address] [place] [address], [place] [address] Aug, [facility] [address] [id number] [address] [place] [address], [place] [address] Aug, [facility] [address] [id number] [address] [place] [address], [place] [address] Aug, [facility] [address] [id number] [address] [place] [address], [place] [address] Aug, [facility] [address] [id number] [address] [place] [address], [place] [address] Aug, [facility] [address] [id number] [address] [place] [address], [place] [address] July, [facility] [address] [id number] [address] [place] [address], [place] [address] July, [facility] [address] [id number] [address] [place] [address], [place] [address] Jun, [facility] [address] [id number] [address] [place] [address], [place] [address] Jun, [facility] [address] [id number] [address] [place] [address], [place] [address] 18 Jun, 2013 [facility] [address] [id number] [address] [place] [address], [place] [address] 18 Jun, 2013 [facility] [address] [id number] [address] [place] [address], [place] [address] Jun, [facility] [address] [id number] [address] [place] [address], [place] [address] 18 Jun, 2013 [facility] [address] [id number] [address] [place] [address], [place] [address] Jun, [facility] [address] [id number] [address] [place] [address], [place] [address] Jun, [facility] [address] [id number] [address] [place] [address], [place] [address] Jun, [facility] [address] [id number] [address] [place] [address], [place] [address] Jun, [facility] [address] [id number] [address] [place] [address], [place] [address] Jun, [facility] [address] [id number] [address] [place] [address], [place] [address] Jun, [facility] [address] [id number] [address] [place] [address], [place] [address] May, [facility] [address] [id number] [address] [place] [address], [place] [address] May, [facility] [address] [id number] [address] [place] [address], [place] [address] May, [facility] [address] [id number] [address] [place] [address], [place] [address] May, [facility] [address] [id number] [address] [place] [address], [place] [address] 19 May, 2013 [facility] [address] [id number] [address] [place] [address], [place] [address] May, [facility] [address] [id number] [address] [place] [address], [place] [address] May, [facility] [address] [id number] [address] [place] [address], [place] [address] May, [facility] [address] [id number] [address] [place] [address], [place] [address] May, [facility] [address] [id number] [address] [place] [address], [place] [address] May, [facility] [address] [id number] [address] [place] [address], [place] [address] May, [facility] [address] [id number] [address] [place] [address], [place] [address] May, [facility] [address] [id number] [address] [place] [address], [place] [address] Apr, [facility] [address] [id number] [address] [place] [address], [place] [address] Apr, [facility] [address] [id number] [address] [place] [address], [place] [address] Apr, [facility] [address] [id number] [address] [place] [address], [place] [address] Apr, [facility] [address] [id number] [address] [place] [address], [place] [address] Apr, [facility] [address] [id number] [address] [place] [address], [place] [address] Apr, [facility] [address] [id number] [address] [place] [address], [place] [address] Apr, [facility] [address] [id number] [address] [place] [address], [place] [address] Apr, [facility] [address] [id number] [address] [place] [address], [place] [address] Apr, 2013 [facility] [address] [id number] [address] [place] [address], [place] [address] Apr, [facility] [address] [id number] [address] [place] [address], [place] [address] Apr, 2013 [facility] [address] [id number] [address] [place] [address], [place] [address] Apr, 2013 [facility] [address] [id number] [address] [place] [address], [place] [address] Apr, [facility] [address] [id number] [address] [place] [address], [place] [address] Apr, [facility] [address] [id number] [address] [place] [address], [place] [address] Apr, [facility] [address] [id number] [address] [place] [address], [place] [address] Apr, [facility] [address] [id number] [address] [place] [address], [place] [address] 13 Apr, 2013 [facility] [address] [id number] [address] [place] [address], [place] [address] Jan, [facility] [address] [id number] [address] [place] [address], [place] [address] Jan, [facility] [address] [id number] [address] [place] [address], [place] [address] Jan, [facility] [address] [id number] [address] [place] [address], [place] [address] Jan, [facility] [address] [id number] [address] [place] [address], [place] [address] Jan, [facility] [address] [id number] [address] [place] [address], [place] [address] Jan, [facility] [address] [id number] [address] [place] [address], [place] [address] Jan, [facility] [address] [id number] [address] [place] [address], [place] [address] Dec, [facility] [address] [id number] [address] [place] [address], [place] [address] Dec, [facility] [address] [id number] [address] [place] [address], [place] [address] Dec, [facility] [address] [id number] [address] [place] [address], [place] [address] Nov, [facility] [address] [id number] [address] [place] [address], [place] [address] Nov, [facility] [address] [id number] [address] [place] [address], [place] [address] Nov, [facility] [address] [id number] [address] [place] [address], [place] [address] Nov, [facility] [address] [id number] [address] [place] [address], [place] [address] Oct, [facility] [address] [id number] [address] [place] [address], [place] [address] Oct, [facility] [address] [id number] [address] [place] [address], [place] [address] Oct, [facility] [address] [id number] [address] [place] [address], [place] [address] Oct, [facility] [address] [id number] [address] [place] [address], [place] [address] Oct, [facility] [address] [id number] [address] [place] [address], [place] [address] Sep, [facility] [address] [id number] [address] [place] [address], [place] [address] Sep, [facility] [address] [id number] [address] [place] [address], [place] [address] Sep, [facility] [address] [id number] [address] [place] [address], [place] [address] Sep, [facility] [address] [id number] [address] [place] [address], [place] [address] Sep, [facility] [address] [id number] [address] [place] [address], [place] [address] Sep, [facility] [address] [id number] [address] [place] [address], [place] [address] Sep, [facility] [address] [id number] [address] [place] [address], [place] [address] Aug, [facility] [address] [id number] [address] [place] [address], [place] [address] Aug, [facility] [address] [id number] [address] [place] [address], [place] [address] July, [facility] [address] [id number] [address] [place] [address], [place] [address] Jun, [facility] [address] [id number] [address] [place] [address], [place] [address] Jun, [facility] [address] [id number] [address] [place] [address], [place] [address] Jun, [facility] [address] [id number] [address] [place] [address], [place] [address] Apr, [facility] [address] [id number] [address] [place] [address], [place] [address] Apr, [facility] [address] [id number] [address] [place] [address], [place] [address] Apr, [facility] [address] [id number] [address] [place] [address], [place] [address] Mar, [facility] [address] [id number] [address] [place] [address], [place] [address] Mar, [facility] [address] [id number] [address] [place] [address], [place] [address] Mar, [facility] [address] [id number] [address] [place] [address], [place] [address] Mar, [facility] [address] [id number] [address] [place] [address], [place] [address] Mar, [facility] [address] [id number] [address] [place] [address], [place] [address] 14 Feb, 2012 [facility] [address] [id number] [address] [place] [address], [place] [address] 14 Feb, 2012 [facility] [address] [id number] [address] [place] [address], [place] [address] Jan, [facility] [address] [id number] [address] [place] [address], [place] [address] Jan, [facility] [address] [id number] [address] [place] [address], [place] [address] Jan, [facility] [address] [id number] [address] [place] [address], [place] [address] Jan, [facility] [address] [id number] [address] [place] [address], [place] [address] Jan, [facility] [address] [id number] [address] [place] [address], [place] [address] Jan, [facility] [address] [id number] [address] [place] [address], [place] [address] Jan, [facility] [address] [id number] [address] [place] [address], [place] [address] Dec, [facility] [address] [id number] [address] [place] [address], [place] [address] Dec, [facility] [address] [id number] [address] [place] [address], [place] [address] Dec, [facility] [address] [id number] [address] [place] [address], [place] [address] Dec, [facility] [address] [id number] [address] [place] [address], [place] [address] Dec, [facility] [address] [id number] [address] [place] [address], [place] [address] Dec, [facility] [address] [id number] [address] [place] [address], [place] [address] Dec, [facility] [address] [id number] [address] [place] [address], [place] [address] Dec, [facility] [address] [id number] [address] [place] [address], [place] [address] Dec, [facility] [address] [id number] [address] [place] [address], [place] [address] Dec, [facility] [address] [id number] [address] [place] [address], [place] [address] Oct, [facility] [address] [id number] [address] [place] [address], [place] [address] Oct, [facility] [address] [id number] [address] [place] [address], [place] [address] Aug, [facility] [address] [id number] [address] [place] [address], [place] [address] Aug, [facility] [address] [id number] [address] [place] [address], [place] [address] July, [facility] [address] [id number] [address] [place] [address], [place] [address] Jun, [facility] [address] [id number] [address] [place] [address], [place] [address] Jun, [facility] [address] [id number] [address] [place] [address], [place] [address] May, [facility] [address] [id number] [address] [place] [address], [place] [address] Apr, [facility] [address] [id number] [address] [place] [address], [place] [address] Apr, [facility] [address] [id number] [address] [place] [address], [place] [address] 19 Mar, 2011 [facility] [address] [id number] [address] [place] [address], [place] [address] 16 Mar, 2011 [facility] [address] [id number] [address] [place] [address], [place] [address] 19 Feb, 2011 [facility] [address] [id number] [address] [place] [address], [place] [address] 15 Feb, 2011 [facility] [address] [id number] [address] [place] [address], [place] [address] 13 Feb, 2011 [facility] [address] [id number] [address] [place] [address], [place] [address] 13 Feb, 2011 [facility] [address] [id number] [address] [place] [address], [place] [address] Jan, [facility] [address] [id number] [address] [place] [address], [place] [address] 17 Dec, 2010 [facility] [address] [id number] [address] [place] [address], [place] [address] 08 Feb, 2010 [facility] [address] [id number] [address] [place] [address], [place] [address] Feb, [facility] [address] [id number] [address] [place] [address], [place] [address] Feb, [facility] [address] [id number] [address] [place] [address], [place] [address] Feb, [facility] [address] [id number] [address] [place] [address], [place] [id number] 15 Dec, 2009 [facility] [address] [id number] [address] [place] [address], [place] [address] 15 Dec, 2009 [facility] [address] [id number] [address] [place] [address], [place] [address] Oct, [facility] [address] [id number] [address] [place] [address], [place] [address] Jun, [facility] [address] [facility] [id number] [address] [place] [id number] Feb, [facility] [address] [facility] [id number] [address] [place] [phone] Feb, [facility] [address] [facility] [id number] [address] [place] [id number] Feb, [facility] [address] [facility] [id number] [address] [place] [id number] Dec, IMMUNIZATIONS No Known Immunizations SOCIAL HISTORY [...] 1985, 1987 Surgical History cholecystectomy Surgical History Mcclure Filter 06/2009 Surgical History Left leg exploratory surgery r/t clot Surgical History left shoulder surgery 09/14/17 Surgical History lap band removed 12/2017 Surgical History gastic sleeve 01/2018 Surgical History Back surgery 2019 Hospitalization History Ruptured Ovarian Cyst with abd bleed ing 11/2009 Hospitalization History Broken Back 06/2018
--- OUTSIDE RECORDS SUMMARY | 2019-10-19 12:34 | XMS REPORT ---
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 Active 525512780 Problem Hypertriglyceridemia E78.1 Active 245203325 Problem 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 Active 673128947 Problem Pelvic pain R10.2 Active 88416258 Problem Peripheral edema R60.9 Active 271 496595 Problem Moderate episode of recurrent major depressive disorder F33.1 Active 699847705 Problem Presence of IVC filter Z95.828 Active 682957244 Problem Vitamin D deficiency E55.9 Active 95915410 Problem Generalized anxiety disorder F41.1 A ctive 645208589 Problem Excessive daytime sleepiness G47.19 A ctive 640279684928 Problem Gastroesophageal reflux disease, esophagitis pre sence not specified K21.9 Active 769385063 Problem Thyroid nodule E04.1 Active 14116 5005 Problem Morbid obesity E66.01 Active 44162 6002 ALLERGIES No Information ENCOUNTERS Encounter Location Date Diagnosis [facility] [address] [facility] [id number] [address] [place] [phone] Oct, [facility] [address] [facility] [id number] [address] [place] [phone] Oct, Hypertriglyceridemia E78.1 [facility] [address] [facility] [id number] [address] [place] [phone] Oct, [facility] [address] [id number] [address] [place] [phone] Oct, Hypertriglyceridemia E78.1 [facility] [address] [id number] [address] [place] [phone] Sep, Hypertriglyceridemia E78.1 a nd Vitamin D deficiency E55.9 [facility] [address] [id number] [address] [place] [phone] Sep, [facility] [address] [id number] [address] [place] [phone] Sep, Morbid obesity E66.01 ; Mode rate episode of recurrent major depressive disorder F33.1 ; Hypertriglyceridemia E78.1 and Vitamin D deficiency E55.9 [facility] [address] [id number] [address] [place] [phone] Aug, [facility] [address] [id number] [address] [place] [phone] July, [facility] [address] [id number] [address] [place] [phone] July, [facility] [address] [id number] [address] [place] [phone] Jun, [facility] [address] [id number] [address] [place] [phone] Jun, [facility] [address] [id number] [address] [place] [phone] Jun, Closed compression fracture of L3 lumbar vertebra with routine healing, subsequent encounter S32.030D and Drug-induced constipation K59.03 [facility] [address] [id number] [address] [place] [phone] Jun, [facility] [address] [id number] [address] [place] [phone] Jun, [facility] [address] [id number] [address] [place] [phone] Apr, [facility] [address] [place] [id number] [address] [place] [id number] 18 Apr, 2018 Morbid obesity E66.01 [facility] [address] [id number] 12 Apr, 2018 Morbid obesity E66.01 ; Hype rtriglyceridemia E78.1 ; Gastroesophageal reflux disease, esophagitis presence not specified K21.9 and Joint pain M25.50 [facility] [address] [id number] Feb, [facility] [address] [address] Feb, [facility] [address] [id number] Jan, Acute bacterial conjunctivit is H10.30 [place] [address] [address] 08 Dec, 2017 [facility] [address] [id number] 04 Dec, 2017 [facility] [address] [address] 17 Nov, 2017 [facility] [address] [id number] 07 Nov, 2017 Obstructive sleep apnea G47. 33 ; Morbid obesity E66.01 and Gastroesophageal reflux disease, esophagitis presence not specified K21.9 [facility] [address] [place] [id number] [address] [place] [id number] 06 Nov, 2017 Encounter for examination of eyes and vision without abnormal findings Z01.00 [facility] [address] [address] 31 Oct, 2017 Thyroid nodule E04.1 and Scr eening for breast cancer Z12.31 [facility] [address] [place] [id number] [address] [place] [id number] 23 Oct, 2017 History of DVT (deep vein th rombosis) Z86.718 ; Thyroid nodule E04.1 and Gastroesophageal reflux disease, esophagitis presence not specified K21.9 [facility] [address] [id number] [address] [place] [phone] Oct, [facility] [address] [id number] [address] [place] [phone] Sep, [facility] [address] [id number] [address] [place] [phone] Aug, [facility] [address] [id number] [address] [place] [phone] Aug, [place] [address] [place] [id number] [place] [address] Aug, Acute pain of left shoulder M25.512 and Thyroid nodule E04.1 [place] [address] [facility] [id number] [address] [place] [phone] July, Superior glenoid labrum lesi on of left shoulder, subsequent encounter S43.432D [place] [address] [facility] [id number] [address] [place] [phone] Jun, History of DVT (deep vein th rombosis) Z86.718 [place] [id number] [facility] [id number] [address] [place] [phone] Jun, History of DVT (deep vein th rombosis) Z86.718 [facility] [address] [facility] [id number] [address] [place] [phone] Jun, Impingement syndrome, should er, left M75.42 [facility] [address] [id number] [address] [place] [phone] May, Subacromial bursitis of left shoulder joint M75.52 [facility] [address] [facility] [id number] [address] [place] [phone] May, [place] [address] [facility] [id number] [address] [place] [phone] May, Hypertriglyceridemia E78.1 ; snf (current) use of anticoagulants Z79.01 and Excessive daytime sleepiness G47.19 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 [address] [id number] [address] [place] [phone] Apr, snf (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 [address] [id number] [address] [place] [id number] Apr, [facility] [address] [id number] [address] [place] [phone] Apr, snf (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 [address] [id number] [address] [place] [id number] 13 Apr, 2017 snf (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 [address] [id number] [address] [place] [phone] Apr, snf (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 [address] [id number] [address] [place] [phone] Apr, snf (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 [address] [id number] [address] [place] [phone] Apr, snf (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 [address] [id number] [address] [place] [id number] Mar, [facility] [address] [id number] [address] [place] [phone] Mar, snf (current) use of a nticoagulants Z79.01 [facility] [address] [id number] [address] [place] [id number] Jan, Dental examination Z01.20 [facility] [address] [id number] [address] [place] [id number] Jan, [facility] [address] [id number] [address] [place] [id number] Jan, snf (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 [address] [id number] [address] [place] [id number] 17 Jan, 2017 History of DVT (deep vein th rombosis) Z86.718 [facility] [address] [id number] [address] [place] [phone] Jan, Generalized anxiety disorder F41.1 and Peripheral edema R60.9 [facility] [address] [id number] [address] [place] [id number] Nov, History of DVT (deep vein th rombosis) Z86.718 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 [address] [id number] [address] [place] [phone] Oct, Personal history of venous t hrombosis and embolism Z86.718 [facility] [address] [id number] [address] [place] [phone] Sep, [facility] [address] [id number] [address] [place] [phone] Sep, Personal history of venous t hrombosis and embolism Z86.718 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 [address] [id number] [address] [place] [phone] Sep, snf (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 [address] [id number] [address] [place] [phone] Sep, Generalized anxiety disorder F41.1 and History of DVT (deep vein thrombosis) Z86.718 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 ; Pelvic pain R10.2 ; Hypertriglyceridemia E78.1 ; Excessive daytime sleepiness G47.19 ; Colon cancer screening Z12.11 ; Screening for breast cancer Z12.39 ; Peripheral edema R60.9 and Gastroesophageal reflux disease, esophagitis presence not specified K21.9 [place] [address] [address] Aug, [place] [address] [address] July, [place] [address] [address] July, History of DVT (deep vein th rombosis) Z86.718 [place] [address] [id number] Jun, Generalized anxiety disorder F41.1 [place] [address] [address] Jun, History of DVT (deep vein th rombosis) Z86.718 [place] [address] [place] [id number] [place] [address] Jun, History of DVT (deep vein th rombosis) Z86.718 [place] [address] [id number] Jun, History of DVT (deep vein th rombosis) Z86.718 [place] [address] [address] Jun, History of DVT (deep vein th rombosis) Z86.718 [place] [address] [place] [id number] [address] [place] [phone] May, History of DVT (deep vein th rombosis) Z86.718 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 [address] [facility] [id number] [address] [place] [phone] May, snf (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 [address] [id number] [address] [place] [phone] May, History of DVT (deep vein th rombosis) Z86.718 [facility] [address] [id number] [address] [place] [phone] 27 Apr, 2016 Bacterial conjunctivitis of left eye H10.9 and H/O motion sickness Z87.898 [facility] [address] [id number] [address] [place] [phone] 24 Apr, 2016 History of DVT (deep vein th rombosis) Z86.718 [facility] [address] [id number] [address] [place] [phone] 23 Apr, 2016 History of DVT (deep vein th rombosis) Z86.718 [facility] [address] [id number] [address] [place] [id number] 15 Apr, 2016 History of DVT (deep vein th rombosis) Z86.718 [facility] [address] [id number] [address] [place] [phone] 14 Apr, 2016 snf (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 [address] [id number] [address] [place] [phone] Mar, 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 [address] [id number] [address] [place] [phone] Mar, Hypertriglyceridemia E78.1 a nd snf (current) use of a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 [address] [id number] [address] [place] [phone] Feb, snf (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 [address] [id number] [address] [place] [phone] Dec, [facility] [address] [id number] [address] [place] [phone] Nov, [facility] [address] [id number] [address] [place] [address] Nov, History of DVT (deep vein th rombosis) Z86.718 ; Tremulousness R25.1 ; Generalized anxiety disorder F41.1 ; Peripheral edema R60.9 and Hypertriglyceridemia E78.1 [facility] [address] [id number] [address] [place] [phone] Oct, History of DVT (deep vein th rombosis) Z86.718 [facility] [address] [id number] [address] [place] [phone] Oct, [facility] [address] [id number] [address] [place] [phone] Sep, History of DVT (deep vein th rombosis) Z86.718 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 [address] [facility] [id number] [address] [place] [phone] July, [facility] [address] [facility] [id number] [address] [place] [phone] July, snf (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 of a nticoagulants Z79.01 [facility] N [facility] [id number] [address] [place] [phone] Jun, Coccyx pain M53.3 ; Encounte r for therapeutic drug level monitoring Z51.81 and snf current use 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.01 [place] [address] [address] [facility] [id number] [address] [place] [phone] May, Abnormal mammogram R92.8 [facility] [place] [address] [address] [facility] [id number] [address] [place] [phone] May, [facility] [place] [address] [address] [facility] [id number] [address] [place] [phone] May, Acute vaginitis N76.0 and En counter for other screening for malignant neoplasm of breast Z12.39 [place] [address] [facility] [id number] [address] [place] [address] Apr, [place] [address] [facility] [id number] [address] [place] [phone] Apr, [place] [address] [facility] [id number] [address] [place] [phone] Apr, Peripheral edema R60.9 [place] [address] [address] [facility] [id number] [address] [place] [phone] Apr, 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 [address] [id number] [address] [place] [phone] Apr, Peripheral edema R60.9 and L jose martin term (current) 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 [address] [id number] [address] [place] [phone] Apr, snf (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 [address] [id number] [address] [place] [phone] Apr, 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 [address] [id number] [address] [place] [phone] Apr, Peripheral edema R60.9 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 [address] [id number] [address] [place] [phone] Mar, snf (current) use of a nticoagulants Z79.01 and Hypertriglyceridemia E78.1 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 [address] [id number] [address] [place] [phone] Mar, snf (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 [address] [id number] [address] [place] [phone] Mar, [facility] [address] [id number] [address] [place] [phone] Mar, snf (current) use of a nticoagulants Z79.01 ; Hypertriglyceridemia E78.1 ; Personal history of venous thrombosis and embolism Z86.718 and Lump R22.9 [place] [address] [id number] [address] [place] [address] Mar, Personal history of venous t hrombosis and embolism Z86.718 [place] [id number] [id number] [address] [place] [address] Mar, Personal history of venous t hrombosis and embolism Z86.718 [place] [address] [id number] [address] [place] [phone] Mar, [place] [address] [id number] [address] [place] [phone] Dec, Personal history of venous t hrombosis and embolism Z86.718 [place] [address] [id number] [address] [place] [phone] Dec, Personal history of venous t hrombosis and embolism V12.51 [place] [address] [id number] [address] [place] [phone] Nov, Personal history of venous t hrombosis and embolism V12.51 [facility] [address] [id number] [address] [place] [phone] Nov, Personal history of venous t hrombosis and embolism V12.51 [facility] [address] [id number] [address] [place] [phone] 17 Nov, 2014 Personal history of venous t hrombosis and embolism V12.51 [facility] [address] [id number] [address] [place] [phone] Nov, Personal history of venous t hrombosis and embolism V12.51 [facility] [address] [id number] [address] [place] [phone] 04 Nov, 2014 [facility] [address] [id number] [address] [place] [phone] Oct, Dysuria 788.1 [facility] [address] [id number] [address] [place] [phone] Oct, Personal history of venous t hrombosis and embolism V12.51 [facility] [address] [id number] [address] [place] [phone] Oct, [facility] [address] [id number] [address] [place] [phone] Oct, Personal history of venous t hrombosis and embolism V12.51 [facility] [address] [id number] [address] [place] [phone] Sep, Personal history of venous t hrombosis and embolism V12.51 [facility] [address] [id number] [address] [place] [phone] Sep, Personal history of venous t hrombosis and embolism V12.51 [facility] [address] [id number] [address] [place] [phone] Aug, Personal history of venous t hrombosis and embolism V12.51 [facility] [address] [id number] [address] [place] [phone] Aug, Personal history of venous t hrombosis and embolism V12.51 [facility] [address] [id number] [address] [place] [phone] Aug, Personal history of venous t hrombosis and embolism V12.51 [facility] [address] [id number] [address] [place] [phone] July, Generalized anxiety disorder 300.02 ; Abdominal pain, left lower quadrant 789.04 and Personal history of venous thrombosis and embolism V12.51 [facility] [address] [id number] [address] [place] [phone] Jun, [facility] [address] [id number] [address] [place] [phone] Jun, [facility] [address] [id number] [address] [place] [address], [place] [phone] May, [facility] [place] [facility] [address] [id number] [address] [place] [address], [place] [phone] May, [facility] [facility] [address] [id number] [address] [place] [address], [place] [address] May, [facility] [address] [id number] [address] [place] [address], [place] [address] May, [facility] [address] [id number] [address] [place] [address], [place] [address] May, [facility] [address] [id number] [address] [place] [address], [place] [address] May, [facility] [address] [id number] [address] [place] [address], [place] [address] May, [facility] [address] [id number] [address] [place] [address], [place] [address] May, [facility] [place] [facility] [address] [id number] [address] [place] [address], [place] [address] Apr, [facility] [place] [facility] [address] [id number] [address] [place] [address], [place] [address] Apr, [facility] [address] [id number] [address] [place] [address], [place] [address] Apr, [facility] [address] [id number] [address] [place] [address], [place] [address] Apr, [facility] [address] [id number] [address] [place] [address], [place] [address] Apr, [facility] [address] [id number] [address] [place] [address], [place] [address] Mar, [facility] [address] [id number] [address] [place] [address], [place] [address] Mar, [facility] [address] [id number] [address] [place] [address], [place] [address] Mar, [facility] [place] [facility] [address] [id number] [address] [place] [address], [place] [address] Mar, [facility] [place] [facility] [address] [id number] [address] [place] [address], [place] [address] Mar, [facility] [place] [facility] [address] [id number] [address] [place] [address], [place] [address] Mar, [facility] [place] [facility] [address] [id number] [address] [place] [address], [place] [address] Feb, [facility] [place] [facility] [address] [id number] [address] [place] [address], [place] [address] Feb, [facility] [place] [facility] [address] [id number] [address] [place] [address], [place] [address] Feb, [facility] [place] [facility] [address] [id number] [address] [place] [address], [place] [address] Feb, [facility] [place] [facility] [address] [id number] [address] [place] [address], [place] [address] Feb, [facility] [place] [facility] [address] [id number] [address] [place] [address], [place] [address] Feb, [facility] [place] [facility] [address] [id number] [address] [place] [address], [place] [address] Feb, [facility] [place] [facility] [address] [id number] [address] [place] [address], [place] [address] Feb, [facility] [place] [facility] [address] [id number] [address] [place] [address], [place] [address] Feb, [facility] [place] [facility] [address] [id number] [address] [place] [address], [place] [address] Feb, [facility] [address] [id number] [address] [place] [address], [place] [address] Jan, [facility] [place] [facility] [address] [id number] [address] [place] [address], [place] [address] Jan, [facility] [place] [facility] [address] [id number] [address] [place] [address], [place] [address] Jan, [facility] [place] [facility] [address] [id number] [address] [place] [address], [place] [address] Jan, [facility] [address] [id number] [address] [place] [address], [place] [address] Jan, [facility] [place] [facility] [address] [id number] [address] [place] [address], [place] [address] Jan, [facility] [address] [id number] [address] [place] [address], [place] [address] Jan, [facility] [place] [facility] [address] [id number] [address] [place] [address], [place] [address] Jan, [facility] [place] [facility] [address] [id number] [address] [place] [address], [place] [address] Jan, [facility] [address] [id number] [address] [place] [address], [place] [address] Jan, [facility] [place] [facility] [address] [id number] [address] [place] [address], [place] [address] Dec, [facility] [address] [id number] [address] [place] [address], [place] [address] Dec, [facility] [place] [facility] [address] [id number] [address] [place] [address], [place] [address] Dec, [facility] [address] [id number] [address] [place] [address], [place] [address] Dec, [facility] [place] [facility] [address] [id number] [address] [place] [address], [place] [address] Dec, [facility] [address] [id number] [address] [place] [address], [place] [address] Dec, [facility] [address] [id number] [address] [place] [address], [place] [address] Dec, [facility] [address] [id number] [address] [place] [address], [place] [address] Dec, [facility] [address] [id number] [address] [place] [address], [place] [address] Dec, [facility] [address] [id number] [address] [place] [address], [place] [address] Dec, [facility] [address] [id number] [address] [place] [address], [place] [address] Dec, [facility] [address] [id number] [address] [place] [address], [place] [address] Dec, [facility] [address] [id number] [address] [place] [address], [place] [address] Dec, [facility] [address] [id number] [address] [place] [address], [place] [address] Dec, [facility] [address] [id number] [address] [place] [address], [place] [address] Dec, [facility] [address] [id number] [address] [place] [address], [place] [address] 30 Nov, 2013 [facility] [address] [id number] [address] [place] [address], [place] [address] 30 Nov, 2013 [facility] [address] [id number] [address] [place] [address], [place] [address] 26 Nov, 2013 [facility] [address] [id number] [address] [place] [address], [place] [address] 26 Nov, 2013 [facility] [address] [id number] [address] [place] [address], [place] [address] 24 Nov, 2013 [facility] [address] [id number] [address] [place] [address], [place] [address] 24 Nov, 2013 [facility] [address] [id number] [address] [place] [address], [place] [address] 23 Nov, 2013 [facility] [address] [id number] [address] [place] [address], [place] [address] 23 Nov, 2013 [facility] [address] [id number] [address] [place] [address] 18 Sep, 2013 [facility] [place] [facility] [address] [id number] [facility] [address] 18 Sep, 2013 [facility] [address] [id number] [address] [place] [address], [place] [address] 17 Nov, 2013 [facility] [place] [facility] [address] [id number] [address] [place] [address], [place] [address] 17 Nov, 2013 [facility] [address] [id number] [address] [place] [address], [place] [address] 11 Nov, 2013 [facility] [place] [facility] [address] [id number] [address] [place] [address], [place] [address] 11 Nov, 2013 [facility] [place] [facility] [address] [id number] [address] [place] [address], [place] [address] 10 Nov, 2013 [facility] [place] [facility] [address] [id number] [address] [place] [address], [place] [address] 10 Nov, 2013 [facility] [place] [facility] [address] [id number] [address] [place] [address], [place] [address] 08 Nov, 2013 [facility] [place] [facility] [address] [id number] [address] [place] [address], [place] [address] 08 Nov, 2013 [facility] [place] [facility] [address] [id number] [address] [place] [address], [place] [address] Sep, 2013 [facility] [place] [facility] [address] [id number] [address] [place] [address], [place] [address] Sep, 2013 [facility] [address] [id number] [address] [place] [address], [place] [address] Sep, 2013 [facility] [address] [id number] [address] [place] [address], [place] [address] Sep, 2013 [facility] [address] [id number] [address] [place] [address], [place] [address] Sep, 2013 [facility] [address] [id number] [address] [place] [address], [place] [address] Sep, 2013 [facility] [address] [id number] [facility] [address] Aug, [facility] [address] [id number] [facility] [address] Aug, [facility] [address] [id number] [facility] [address] Aug, [facility] [address] [id number] [address] [place] [address], [place] [address] Aug, [facility] [address] [id number] [address] [place] [address], [place] [address] Aug, [facility] [address] [id number] [address] [place] [address], [place] [address] Aug, [facility] [address] [id number] [address] [place] [address], [place] [address] Aug, [facility] [address] [id number] [address] [place] [address], [place] [address] Aug, [facility] [address] [id number] [address] [place] [address], [place] [address] Aug, [facility] [address] [id number] [address] [place] [address], [place] [address] Aug, [facility] [address] [id number] [address] [place] [address], [place] [address] Aug, [facility] [address] [id number] [address] [place] [address], [place] [address] July, [facility] [address] [id number] [address] [place] [address], [place] [address] July, [facility] [address] [id number] [address] [place] [address], [place] [address] Jun, [facility] [address] [id number] [address] [place] [address], [place] [address] Jun, [facility] [address] [id number] [address] [place] [address], [place] [address] 18 Jun, 2013 [facility] [place] [facility] [address] [id number] [facility] [address] 18 Jun, 2013 [facility] [place] [facility] [address] [id number] [facility] [address] 18 Jun, 2013 [facility] [place] [facility] [address] [id number] [address] [place] [address], [place] [address] 18 Jun, 2013 [facility] [place] [facility] [address] [id number] [address] [place] [address], [place] [address] 15 Jun, 2013 [facility] [place] [facility] [address] [id number] [address] [place] [address], [place] [address] 15 Jun, 2013 [facility] [place] [facility] [address] [id number] [address] [place] [address], [place] [address] Jun, [facility] [place] [facility] [address] [id number] [address] [place] [address], [place] [address] Jun, [facility] [place] [facility] [address] [id number] [address] [place] [address], [place] [address] Jun, [facility] [place] [facility] [address] [id number] [address] [place] [address], [place] [address] Jun, [facility] [place] [facility] [address] [id number] [address] [place] [address], [place] [address] May, [facility] [place] [facility] [address] [id number] [address] [place] [address], [place] [address] May, [facility] [address] [id number] [address] [place] [address], [place] [address] May, [facility] [address] [id number] [address] [place] [address], [place] [address] May, [facility] [address] [id number] [address] [place] [address], [place] [address] 19 May, 2013 [facility] [address] [id number] [address] [place] [address], [place] [address] 19 May, 2013 [facility] [address] [id number] [facility] [address] 06 May, 2013 [facility] [place] [facility] [address] [id number] [address] [place] [address], [place] [address] May, [facility] [address] [id number] [address] [place] [address], [place] [address] May, [facility] [address] [id number] [address] [place] [address], [place] [address] May, [facility] [address] [id number] [address] [place] [address], [place] [address] May, [facility] [place] [facility] [address] [id number] [address] [place] [address], [place] [address] May, [facility] [address] [id number] [address] [place] [address], [place] [address] Apr, [facility] [address] [id number] [address] [place] [address], [place] [address] Apr, [facility] [place] [facility] [address] [id number] [address] [place] [address], [place] [address] Apr, [facility] [address] [id number] [address] [place] [address], [place] [address] Apr, [facility] [place] [facility] [address] [id number] [address] [place] [address], [place] [address] Apr, [facility] [address] [id number] [address] [place] [address], [place] [address] Apr, [facility] [address] [id number] [address] [place] [address], [place] [address] Apr, [facility] [address] [id number] [address] [place] [address], [place] [address] Apr, [facility] [address] [id number] [address] [place] [address], [place] [address] Apr, [facility] [address] [id number] [address] [place] [address], [place] [address] Apr, [facility] [place] [facility] [address] [id number] [address] [place] [address], [place] [address] Apr, [facility] [place] [facility] [address] [id number] [address] [place] [address], [place] [address] Apr, [facility] [place] [facility] [address] [id number] [address] [place] [address], [place] [address] Apr, [facility] [place] [facility] [address] [id number] [address] [place] [address], [place] [address] Apr, [facility] [place] [facility] [address] [id number] [address] [place] [address], [place] [address] Apr, [facility] [place] [facility] [address] [id number] [address] [place] [address], [place] [address] Apr, [facility] [address] [id number] [address] [place] [address], [place] [address] Apr, [facility] [place] [facility] [address] [id number] [address] [place] [address], [place] [address] Jan, [facility] [place] [facility] [address] [id number] [address] [place] [address], [place] [address] Jan, [facility] [place] [facility] [address] [id number] [address] [place] [address], [place] [address] Jan, [facility] [place] [facility] [address] [id number] [address] [place] [address], [place] [address] Jan, [facility] [place] [facility] [address] [id number] [address] [place] [address] Jan, [facility] [place] [facility] [address] [id number] [address] [place] [address] Jan, [facility] [place] [facility] [address] [id number] [address] [place] [address], [place] [address] Jan, [facility] [place] [facility] [address] [id number] [address] [place] [address], [place] [address] Dec, [facility] [address] [id number] [address] [place] [address], [place] [address] Dec, [facility] [place] [facility] [address] [id number] [address] [place] [address], [place] [address] Dec, [facility] [place] [facility] [address] [id number] [address] [place] [address], [place] [address] Nov, [facility] [place] [facility] [address] [id number] [address] [place] [address], [place] [address] Nov, [facility] [place] [facility] [address] [id number] [address] [place] [address], [place] [address] Nov, [facility] [place] [facility] [address] [id number] [address] [place] [address], [place] [address] Nov, [facility] [address] [id number] [address] [place] [address], [place] [address] Oct, [facility] [address] [id number] [address] [place] [address], [place] [address] Oct, [facility] [address] [id number] [address] [place] [address], [place] [address] Oct, [facility] [address] [id number] [address] [place] [address], [place] [address] Oct, [facility] [address] [id number] [address] [place] [address], [place] [address] Oct, [facility] [address] [id number] [address] [place] [address], [place] [address] Sep, [facility] [address] [id number] [address] [place] [address], [place] [address] Sep, [facility] [address] [id number] [address] [place] [address], [place] [address] Sep, [facility] [address] [id number] [address] [place] [address], [place] [address] Sep, [facility] [address] [id number] [address] [place] [address], [place] [address] Sep, [facility] [address] [id number] [address] [place] [address], [place] [address] Sep, [facility] [place] [facility] [address] [id number] [address] [place] [address], [place] [address] Sep, [facility] [place] [facility] [address] [id number] [address] [place] [address], [place] [address] Aug, [facility] [place] [facility] [address] [id number] [address] [place] [address], [place] [address] Aug, [facility] [place] [facility] [address] [id number] [address] [place] [address], [place] [address] July, [facility] [place] [facility] [address] [id number] [address] [place] [address], [place] [address] Jun, [facility] [address] [id number] [address] [place] [address], [place] [address] Jun, [facility] [place] [facility] [address] [id number] [address] [place] [address], [place] [address] Jun, [facility] [address] [id number] [address] [place] [address], [place] [address] Apr, [facility] [address] [id number] [address] [place] [address], [place] [address] Apr, [facility] [address] [id number] [address] [place] [address], [place] [address] Apr, [facility] [address] [id number] [address] [place] [address], [place] [address] Mar, [facility] [place] [facility] [address] [id number] [address] [place] [address], [place] [address] Mar, [facility] [place] [facility] [address] [id number] [address] [place] [address], [place] [address] Mar, [facility] [place] [facility] [address] [id number] [address] [place] [address], [place] [address] Mar, [facility] [address] [id number] [address] [place] [address], [place] [address] 07 Mar, 2012 [facility] [place] [facility] [address] [id number] [address] [place] [address], [place] [address] 14 Feb, 2012 [facility] [place] [facility] [address] [id number] [address] [place] [address], [place] [address] 14 Feb, 2012 [facility] [place] [facility] [address] [id number] [address] [place] [address], [place] [address] 13 Jan, 2012 [facility] [place] [facility] [address] [id number] [address] [place] [address], [place] [address] 13 Jan, 2012 [facility] [place] [facility] [address] [id number] [address] [place] [address], [place] [address] 13 Jan, 2012 [facility] [place] [facility] [address] [id number] [address] [place] [address], [place] [address] Jan, [facility] [place] [facility] [address] [id number] [address] [place] [address], [place] [address] Jan, [facility] [place] [facility] [address] [id number] [address] [place] [address], [place] [address] 07 Jan, 2012 [facility] [place] [facility] [address] [id number] [address] [place] [address], [place] [address] 06 Jan, 2012 [facility] [address] [id number] [address] [place] [address], [place] [address] 31 Dec, 2011 [facility] [place] [facility] [address] [id number] [address] [place] [address], [place] [address] 31 Dec, 2011 [facility] [place] [facility] [address] [id number] [address] [place] [address], [place] [address] 30 Dec, 2011 [facility] [place] [facility] [address] [id number] [address] [place] [address], [place] [address] 30 Dec, 2011 [facility] [place] [facility] [address] [id number] [address] [place] [address], [place] [address] 30 Dec, 2011 [facility] [place] [facility] [address] [id number] [address] [place] [address], [place] [address] Dec, [facility] [place] [facility] [address] [id number] [address] [place] [address], [place] [address] Dec, [facility] [place] [facility] [address] [id number] [address] [place] [address], [place] [address] Dec, [facility] [place] [facility] [address] [id number] [address] [place] [address], [place] [address] Dec, [facility] [place] [facility] [address] [id number] [address] [place] [address], [place] [address] Dec, [facility] [place] [facility] [address] [id number] [address] [place] [address], [place] [address] Oct, [facility] [place] [facility] [address] [id number] [address] [place] [address], [place] [address] Oct, [facility] [place] [facility] [address] [id number] [address] [place] [address], [place] [address] Aug, [facility] [place] [facility] [address] [id number] [address] [place] [address], [place] [address] Aug, [facility] [place] [facility] [address] [id number] [address] [place] [address], [place] [address] July, [facility] [place] [facility] [address] [id number] [address] [place] [address], [place] [address] Jun, [facility] [place] [facility] [address] [id number] [address] [place] [address], [place] [address] Jun, [facility] [address] [id number] [address] [place] [address], [place] [address] May, [facility] [address] [id number] [address] [place] [address], [place] [address] Apr, [facility] [address] [id number] [address] [place] [address], [place] [address] Apr, [facility] [address] [id number] [address] [place] [address], [place] [address] Mar, [facility] [address] [id number] [address] [place] [address], [place] [address] 16 Mar, 2011 [facility] [place] [facility] [address] [id number] [address] [place] [address], [place] [address] 19 Feb, 2011 [facility] [place] [facility] [address] [id number] [address] [place] [address], [place] [address] 15 Feb, 2011 [facility] [place] [facility] [address] [id number] [address] [place] [address], [place] [address] 13 Feb, 2011 [facility] [place] [facility] [address] [id number] [address] [place] [address], [place] [id number] 13 Feb, 2011 [facility] [place] [facility] [address] [id number] [address] [place] [address], [place] [address] Jan, [facility] [place] [facility] [address] [id number] [address] [place] [address], [place] [id number] 17 Dec, 2010 [facility] [place] [facility] [address] [id number] [address] [place] [address], [place] [address] 08 Feb, 2010 [facility] [place] [facility] [address] [id number] [address] [place] [address], [place] [address] 02 Feb, 2010 [facility] [place] [facility] [address] [id number] [address] [place] [address], [place] [address] Feb, [facility] [place] [facility] [address] [id number] [address] [place] [address], [place] [id number] Feb, [facility] [place] [facility] [address] [id number] [address] [place] [address], [place] [address] 15 Dec, 2009 [facility] [place] [facility] [address] [id number] [address] [place] [address], [place] [id number] 15 Dec, 2009 [facility] [place] [facility] [address] [id number] [address] [place] [address], [place] [address] Oct, [facility] [place] [facility] [address] [id number] [address] [place] [address], [place] [address] 15 Jun, 2009 [facility] [place] [facility] [address] [id number] [address] [place] [address], [place] [address] Feb, [facility] [address] [facility] [id number] [address] [place] [id number] Feb, [facility] [address] [facility] [id number] [address] [place] [id number] Feb, [facility] [address] [facility] [id number] [address] [place] [id number] Dec, IMMUNIZATIONS No Known Immunizations SOCIAL HISTORY Never Assessed REASON FOR VISIT PLAN OF CARE VITAL SIGNS MEDICATIONS Unknown Medications RESULTS No Results PROCEDURES Procedure Date Ordered Result Body Site PROTHROMBIN TIME Feb 27, 2014 INSTRUCTIONS MEDICATIONS ADMINISTERED No Known Medications MEDICAL (GENERAL) HISTORY Type Description Date Medical History obesity Medical History Hematologic disorder factor clotting pro blem Medical History DVT's Medical History Torn Rotator Cuff, repaired 09/23/17 Surgical History Lap Band 10/2012 Surgical History section 1985, 1987 Surgical History cholecystectomy Surgical History [place] Filter 06/2009 Surgical History Left leg exploratory surgery r/t clot Surgical History left shoulder surgery 09/14/17 Surgical History lap band removed 12/2017 Surgical History gastic sleeve 01/2018 Surgical History Back surgery 2019 Hospitalization History Ruptured Ovarian Cyst with abd bleed ing 11/2009 Hospitalization History Broken Back 06/2018
--- OUTSIDE RECORDS SUMMARY | 2019-10-19 12:34 | XMS REPORT ---
[facility] Address [address] [place] [address] Care Team Providers Care Career Coordinator Name Role Phone ASHLEY BRUNO Unavailable PROBLEMS Type Condition ICD9-CM Code XNR84-UK Code Onset Dates Condition S tatus SNOMED Code Problem Thyroid follicular adenoma D34 Act phylicia 537658621 Problem History of DVT (deep vein thrombosis) Z86.718 Active 959242878 Problem Factor V Leiden D68.51 Active 3070 34944 Problem long term acute care registered nurse (current) use of anticoagulants Z79.01 Active 673964323 Problem Hypertriglyceridemia E78.1 Active 899717436 Problem 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 Active 950821625 Problem Pelvic pain R10.2 Active 93831740 Problem Peripheral edema R60.9 Active 271 568378 Problem Moderate episode of recurrent major depressive disorder F33.1 Active 420470490 Problem Presence of IVC filter Z95.828 Active 133395556 Problem Vitamin D deficiency E55.9 Active 26241363 Problem Generalized anxiety disorder F41.1 A ctive 188688302 Problem Excessive daytime sleepiness G47.19 A ctive 097242934075 Problem Gastroesophageal reflux disease, esophagitis pre sence not specified K21.9 Active 242929890 Problem Thyroid nodule E04.1 Active 32032 5005 Problem Morbid obesity E66.01 Active 66545 6002 ALLERGIES No Information ENCOUNTERS Encounter Location Date Diagnosis [facility] [address] [facility] [id number] [address] [place] [phone] Oct, [facility] [address] [facility] [id number] [address] [place] [phone] Oct, Morbid obesity E66.01 [facility] [address] [facility] [id number] [address] [place] [phone] Oct, Hypertriglyceridemia E78.1 [place] [address] [id number] [address] [place] [phone] Oct, [facility] [address] [id number] [address] [place] [phone] Oct, Hypertriglyceridemia E78.1 [facility] [address] [id number] [address] [place] [phone] Sep, Hypertriglyceridemia E78.1 a nd Vitamin D deficiency E55.9 [facility] [address] [id number] [address] [place] [phone] Sep, [facility] [address] [id number] [address] [place] [id number] Sep, Morbid obesity E66.01 ; Mode rate episode of recurrent major depressive disorder F33.1 ; Hypertriglyceridemia E78.1 and Vitamin D deficiency E55.9 [facility] [address] [facility] [id number] [address] [place] [phone] Aug, [facility] [address] [id number] [address] [place] [phone] July, [facility] [address] [facility] [id number] [address] [place] [phone] July, [facility] [address] [facility] [id number] [address] [place] [phone] Jun, [facility] [address] [facility] [id number] [address] [place] [phone] Jun, [facility] [address] [facility] [id number] [address] [place] [phone] Jun, Closed compression fracture of L3 lumbar vertebra with routine healing, subsequent encounter S32.030D and Drug-induced constipation K59.03 [facility] [address] [id number] [address] [place] [phone] Jun, [facility] [address] [facility] [id number] [address] [place] [phone] Jun, [facility] [address] [facility] [id number] [address] [place] [phone] 19 Apr, 2018 [facility] [address] [facility] [id number] [place] [phone] 18 Apr, 2018 Morbid obesity E66.01 [facility] [address] [facility] [id number] [address] [place] [id number] 12 Apr, 2018 Morbid obesity E66.01 ; Hype rtriglyceridemia E78.1 ; Gastroesophageal reflux disease, esophagitis presence not specified K21.9 and Joint pain M25.50 [facility] [address] [facility] [id number] [address] [place] [phone] 22 Feb, 2018 [facility] [address] [place] [id number] [place] [phone] Feb, [facility] [address] [facility] [id number] [address] [place] [phone] Jan, Acute bacterial conjunctivit is H10.30 [facility] [address] [facility] [id number] [address] [place] [phone] 08 Dec, 2017 [facility] [address] [phone] 04 Dec, 2017 [facility] [address] [facility] [id number] [address] [place] [id number] 17 Nov, 2017 [facility] [address] [place] [id number] [address] [place] [phone] 07 Nov, 2017 Obstructive sleep apnea G47. 33 ; Morbid obesity E66.01 and Gastroesophageal reflux disease, esophagitis presence not specified K21.9 [facility] [address] [id number] [address] [place] [phone] 06 Nov, 2017 Encounter for examination of eyes and vision without abnormal findings Z01.00 [facility] [address] [place] [id number] [address] [place] [phone] 31 Oct, 2017 Thyroid nodule E04.1 and Scr eening for breast cancer Z12.31 [facility] [address] [place] [id number] [address] [place] [phone] Oct, History of DVT (deep vein th rombosis) Z86.718 ; Thyroid nodule E04.1 and Gastroesophageal reflux disease, esophagitis presence not specified K21.9 [place] [address] [id number] [address] [place] [phone] Oct, [place] [address] [facility] [id number] [address] [place] [phone] Sep, [place] [address] [id number] [address] [place] [phone] Aug, [place] [address] [place] [id number] [place] [phone] Aug, [place] [address] [place] [id number] [place] [phone] Aug, Acute pain of left shoulder M25.512 and Thyroid nodule E04.1 [place] [address] [place] [id number] [address] [place] [phone] July, Superior glenoid labrum lesi on of left shoulder, subsequent encounter S43.432D [place] [address] [place] [id number] [place] [phone] Jun, History of DVT (deep vein th rombosis) Z86.718 [place] [address] [facility] [id number] [address] [place] [phone] Jun, History of DVT (deep vein th rombosis) Z86.718 [place] [address] [facility] [id number] [address] [place] [phone] Jun, Impingement syndrome, should er, left M75.42 [place] [address] [place] [id number] [address] [place] [phone] May, Subacromial bursitis of left shoulder joint M75.52 [place] [address] [place] [id number] [address] [place] [phone] May, [facility] [address] [id number] [address] [place] [phone] May, Hypertriglyceridemia E78.1 ; long term acute care registered nurse (current) use of anticoagulants Z79.01 and Excessive daytime sleepiness G47.19 [facility] [address] [facility] [id number] [address] [place] [phone] May, History of DVT (deep vein th rombosis) Z86.718 ; Generalized anxiety disorder F41.1 ; Hypertriglyceridemia E78.1 ; long term acute care registered nurse (current) use of anticoagulants Z79.01 ; Subacromial bursitis of left shoulder joint M75.52 and Excessive daytime sleepiness G47.19 [place] [address] [id number] [address] [place] [phone] May, [place] [address] [facility] [id number] [address] [place] [phone] May, correction (current) use of a nticoagulants Z79.01 [place] [address] [id number] [address] [place] [phone] Apr, correction (current) use of a nticoagulants Z79.01 [place] [address] [id number] [address] [place] [phone] Apr, long term acute care registered nurse (current) use of a nticoagulants Z79.01 [place] [address] [id number] [address] [place] [phone] Apr, long term acute care registered nurse (current) use of a nticoagulants Z79.01 [facility] [address] [id number] [address] [place] [phone] Apr, [facility] [address] [id number] [address] [place] [phone] 16 Apr, 2017 long term acute care registered nurse (current) use of a nticoagulants Z79.01 [place] [address] [facility] [id number] [address] [place] [phone] 13 Apr, 2017 long term acute care registered nurse (current) use of a nticoagulants Z79.01 [facility] [address] [id number] [address] [place] [phone] Apr, correction (current) use of a nticoagulants Z79.01 [facility] [address] [id number] [address] [place] [phone] Apr, long term acute care registered nurse (current) use of a nticoagulants Z79.01 [facility] [address] [id number] [address] [place] [phone] Apr, correction (current) use of a nticoagulants Z79.01 [facility] [address] [id number] [address] [place] [phone] Apr, correction (current) use of a nticoagulants Z79.01 [facility] [address] [id number] [address] [place] [phone] Mar, correction (current) use of a nticoagulants Z79.01 [facility] [address] [id number] [address] [place] [phone] Mar, [facility] [address] [id number] [address] [place] [phone] Mar, correction (current) use of a nticoagulants Z79.01 [facility] [address] [id number] [address] [place] [phone] Jan, Dental examination Z01.20 [facility] [address] [id number] [address] [place] [phone] Jan, [facility] [address] [id number] [address] [place] [phone] Jan, correction (current) use of a nticoagulants Z79.01 [facility] [address] [id number] [address] [place] [phone] Jan, History of DVT (deep vein th rombosis) Z86.718 [facility] [address] [id number] [address] [place] [phone] Jan, Generalized anxiety disorder F41.1 and Peripheral edema R60.9 [facility] [address] [id number] [address] [place] [phone] Nov, History of DVT (deep vein th rombosis) Z86.718 [facility] [address] [id number] [address] [place] [phone] Nov, correction (current) use of a nticoagulants Z79.01 [facility] [address] [id number] [address] [place] [phone] Nov, Acute non-recurrent maxillar y sinusitis J01.00 [facility] [address] [id number] [address] [place] [phone] Oct, correction (current) use of a nticoagulants Z79.01 [facility] [address] [id number] [address] [place] [phone] Oct, Personal history of venous t hrombosis and embolism Z86.718 [facility] [address] [id number] [address] [place] [phone] Sep, [facility] [address] [id number] [address] [place] [phone] Sep, Personal history of venous t hrombosis and embolism Z86.718 [facility] [address] [id number] [address] [place] [phone] Sep, correction (current) use of a nticoagulants Z79.01 [facility] [address] [id number] [address] [place] [phone] Sep, long term acute care registered nurse (current) use of a nticoagulants Z79.01 [facility] [address] [id number] [address] [place] [phone] Sep, Generalized anxiety disorder F41.1 and History of DVT (deep vein thrombosis) Z86.718 [place] [address] [facility] [id number] [address] [place] [phone] Aug, History of DVT (deep vein th rombosis) Z86.718 ; Generalized anxiety disorder F41.1 ; correction (current) use of anticoagulants Z79.01 ; Pelvic pain R10.2 ; Hypertriglyceridemia E78.1 ; Excessive daytime sleepiness G47.19 ; Colon cancer screening Z12.11 ; Screening for breast cancer Z12.39 ; Peripheral edema R60.9 and Gastroesophageal reflux disease, esophagitis presence not specified K21.9 [place] [address] [phone] Aug, [place] [address] [place] [id number] [place] [phone] July, [place] [address] [phone] July, History of DVT (deep vein th rombosis) Z86.718 [place] [address] [place] [id number] [address] [place] [phone] Jun, Generalized anxiety disorder F41.1 [place] [address] [place] [id number] [address] [place] [phone] Jun, History of DVT (deep vein th rombosis) Z86.718 [place] [address] [place] [id number] [address] [place] [phone] Jun, History of DVT (deep vein th rombosis) Z86.718 [place] [address] [place] [id number] [address] [place] [phone] Jun, History of DVT (deep vein th rombosis) Z86.718 [place] [address] [place] [id number] [address] [place] [phone] Jun, History of DVT (deep vein th rombosis) Z86.718 [place] [address] [place] [id number] [address] [place] [phone] May, History of DVT (deep vein th rombosis) Z86.718 [facility] [address] [id number] [address] [place] [phone] May, long term acute care registered nurse (current) use of a nticoagulants Z79.01 [facility] [address] [id number] [address] [place] [phone] May, long term acute care registered nurse (current) use of a nticoagulants Z79.01 [facility] [address] [id number] [address] [place] [phone] May, History of DVT (deep vein th rombosis) Z86.718 [facility] [address] [id number] [address] [place] [phone] 27 Apr, 2016 Bacterial conjunctivitis of left eye H10.9 and H/O motion sickness Z87.898 [facility] [address] [id number] [address] [place] [phone] 24 Apr, 2016 History of DVT (deep vein th rombosis) Z86.718 [place] [address] [id number] [address] [place] [phone] 23 Apr, 2016 History of DVT (deep vein th rombosis) Z86.718 [facility] [address] [id number] [address] [place] [phone] 15 Apr, 2016 History of DVT (deep vein th rombosis) Z86.718 [facility] [address] [id number] [address] [place] [phone] 14 Apr, 2016 correction (current) use of a nticoagulants Z79.01 [facility] [address] [id number] [address] [place] [phone] Mar, [facility] [address] [id number] [address] [place] [phone] Mar, correction (current) use of a nticoagulants Z79.01 [facility] [address] [id number] [address] [place] [phone] Mar, Hypertriglyceridemia E78.1 a nd long term acute care registered nurse (current) use of anticoagulants Z79.01 [facility] [address] [id number] [address] [place] [phone] Feb, long term acute care registered nurse (current) use of a nticoagulants Z79.01 [facility] [address] [id number] [address] [place] [phone] Feb, correction (current) use of a nticoagulants Z79.01 [facility] [address] [id number] [address] [place] [phone] Feb, long term acute care registered nurse (current) use of a nticoagulants Z79.01 [facility] [address] [id number] [address] [place] [phone] Dec, [facility] [address] [id number] [address] [place] [phone] Nov, [place] [address] [id number] [address] [place] [phone] Nov, History of DVT (deep vein th rombosis) Z86.718 ; Tremulousness R25.1 ; Generalized anxiety disorder F41.1 ; Peripheral edema R60.9 and Hypertriglyceridemia E78.1 [facility] [address] [id number] [address] [place] [phone] Oct, History of DVT (deep vein th rombosis) Z86.718 [place] [address] [id number] [address] [place] [phone] Oct, [place] [address] [facility] [id number] [address] [place] [phone] Sep, History of DVT (deep vein th rombosis) Z86.718 [place] [address] [id number] [address] [place] [phone] Sep, correction (current) use of a nticoagulants Z79.01 [place] [address] [id number] [address] [place] [phone] July, [facility] [address] [id number] [address] [place] [phone] July, long term acute care registered nurse (current) use of a nticoagulants Z79.01 [place] [address] [id number] [address] [place] [phone] July, long term acute care registered nurse (current) use of a nticoagulants Z79.01 [place] [address] [facility] [id number] [address] [place] [phone] Jun, long term acute care registered nurse (current) use of a nticoagulants Z79.01 [facility] [place] [address] [facility] [id number] [address] [place] [phone] Jun, Coccyx pain M53.3 ; Encounte r for therapeutic drug level monitoring Z51.81 and long term acute care registered nurse current use 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.01 [place] [address] [id number] [address] [place] [phone] May, Abnormal mammogram R92.8 [facility] [address] [id number] [address] [place] [phone] May, [facility] [place] [address] [facility] [id number] [address] [place] [phone] May, Acute vaginitis N76.0 and En counter for other screening for malignant neoplasm of breast Z12.39 [place] [address] [facility] [id number] [address] [place] [phone] Apr, [place] [address] [facility] [id number] [address] [place] [phone] Apr, [facility] [address] [facility] [id number] [address] [place] [phone] Apr, Peripheral edema R60.9 [facility] [address] [id number] [address] [place] [phone] Apr, long term acute care registered nurse (current) use of a nticoagulants Z79.01 [facility] [address] [id number] [address] [place] [phone] Apr, Peripheral edema R60.9 and L jose martin term (current) 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 Z79.01 [facility] [address] [id number] [address] [place] [phone] Apr, long term acute care registered nurse (current) use of a nticoagulants Z79.01 [facility] [address] [id number] [address] [place] [phone] Apr, [facility] [address] [id number] [address] [place] [phone] Apr, correction (current) use of a nticoagulants Z79.01 [facility] [address] [id number] [address] [place] [phone] Apr, Peripheral edema R60.9 [facility] [address] [id number] [address] [place] [phone] Mar, long term acute care registered nurse (current) use of a nticoagulants Z79.01 [facility] [address] [id number] [address] [place] [phone] Mar, correction (current) use of a nticoagulants Z79.01 and Hypertriglyceridemia E78.1 [facility] [address] [id number] [address] [place] [phone] Mar, long term acute care registered nurse (current) use of a nticoagulants Z79.01 [facility] [address] [id number] [address] [place] [phone] Mar, correction (current) use of a nticoagulants Z79.01 [facility] [address] [id number] [address] [place] [phone] Mar, [facility] [address] [id number] [address] [place] [phone] Mar, long term acute care registered nurse (current) use of a nticoagulants Z79.01 ; Hypertriglyceridemia E78.1 ; Personal history of venous thrombosis and embolism Z86.718 and Lump R22.9 [place] [address] [id number] [address] [place] [phone] Mar, Personal history of venous t hrombosis and embolism Z86.718 [place] [address] [id number] [address] [place] [phone] Mar, Personal history of venous t hrombosis and embolism Z86.718 [place] [address] [id number] [address] [place] [phone] Mar, [place] [address] [id number] [address] [place] [phone] Dec, Personal history of venous t hrombosis and embolism Z86.718 [place] [address] [id number] [address] [place] [phone] Dec, Personal history of venous t hrombosis and embolism V12.51 [place] [address] [id number] [address] [place] [phone] 28 Nov, 2014 Personal history of venous t hrombosis and embolism V12.51 [place] [address] [id number] [address] [place] [phone] 25 Nov, 2014 Personal history of venous t hrombosis and embolism V12.51 [place] [address] [id number] [address] [place] [phone] 17 Nov, 2014 Personal history of venous t hrombosis and embolism V12.51 [place] [address] [id number] [address] [place] [phone] 11 Nov, 2014 Personal history of venous t hrombosis and embolism V12.51 [place] [address] [id number] [address] [place] [phone] Nov, [facility] [address] [id number] [address] [place] [phone] Oct, Dysuria 788.1 [facility] [address] [id number] [address] [place] [id number] Oct, Personal history of venous t hrombosis and embolism V12.51 [facility] [address] [id number] [address] [place] [id number] Oct, [facility] [address] [id number] [address] [place] [id number] Oct, Personal history of venous t hrombosis and embolism V12.51 [place] [address] [id number] [address] [place] [id number] Sep, Personal history of venous t hrombosis and embolism V12.51 [place] [address] [id number] [address] [place] [id number] Sep, Personal history of venous t hrombosis and embolism V12.51 [place] [address] [id number] [address] [place] [id number] Aug, Personal history of venous t hrombosis and embolism V12.51 [place] [address] [id number] [address] [place] [id number] Aug, Personal history of venous t hrombosis and embolism V12.51 [facility] [address] [id number] [address] [place] [id number] Aug, Personal history of venous t hrombosis and embolism V12.51 [place] [address] [id number] [address] [place] [id number] July, Generalized anxiety disorder 300.02 ; Abdominal pain, left lower quadrant 789.04 and Personal history of venous thrombosis and embolism V12.51 [place] [address] [id number] [address] [place] [id number] Jun, [facility] [address] [id number] [address] [place] [address], [place] [address] Jun, [facility] [address] [id number] [address] [place] [address], [place] [address] May, [facility] [address] [id number] [address] [place] [address], [place] [address] May, [facility] [address] [id number] [address] [place] [address], [place] [address] May, [facility] [address] [id number] [address] [place] [address], [place] [address] May, [facility] [address] [id number] [address] [place] [address], [place] [address] May, [facility] [address] [id number] [address] [place] [address], [place] [address] May, [facility] [address] [id number] [address] [place] [address], [place] [address] May, [facility] [address] [id number] [address] [place] [address], [place] [address] May, [facility] [address] [id number] [address] [place] [address], [place] [address] Apr, [facility] [address] [id number] [address] [place] [address], [place] [address] Apr, [facility] [address] [id number] [address] [place] [address], [place] [address] Apr, [facility] [address] [id number] [address] [place] [address], [place] [address] Apr, [facility] [address] [id number] [address] [place] [address], [place] [address] Apr, [facility] [address] [id number] [address] [place] [address], [place] [id number] Mar, [facility] [address] [id number] [address] [place] [address], [place] [address] Mar, [facility] [address] [id number] [address] [place] [address], [place] [address] Mar, [facility] [address] [id number] [address] [place] [address], [place] [address] Mar, [facility] [address] [id number] [address] [place] [address], [place] [address] Mar, [facility] [address] [id number] [address] [place] [address], [place] [address] Mar, [facility] [address] [id number] [address] [place] [address], [place] [address] Feb, [facility] [address] [id number] [address] [place] [address], [place] [address] Feb, [facility] [address] [id number] [address] [place] [address], [place] [address] Feb, [facility] [address] [id number] [address] [place] [address], [place] [address] Feb, [facility] [address] [id number] [address] [place] [address], [place] [address] Feb, [facility] [address] [id number] [address] [place] [address], [place] [address] Feb, [facility] [address] [id number] [address] [place] [address], [place] [address] Feb, [facility] [address] [id number] [address] [place] [address], [place] [address] Feb, [facility] [address] [id number] [address] [place] [address], [place] [address] Feb, [facility] [address] [id number] [address] [place] [address], [place] [address] Feb, [facility] [address] [id number] [address] [place] [address], [place] [address] Jan, [facility] [address] [id number] [address] [place] [address], [place] [address] Jan, [facility] [address] [id number] [address] [place] [address], [place] [address] Jan, [facility] [address] [id number] [address] [place] [address], [place] [address] Jan, [facility] [address] [id number] [address] [place] [address], [place] [address] Jan, [facility] [address] [id number] [address] [place] [address], [place] [address] Jan, [facility] [address] [id number] [address] [place] [address], [place] [address] Jan, [facility] [address] [id number] [address] [place] [address], [place] [address] Jan, [facility] [address] [id number] [address] [place] [address], [place] [address] Jan, [facility] [address] [id number] [address] [place] [address], [place] [address] Jan, [facility] [address] [id number] [address] [place] [address], [place] [address] Dec, [facility] [address] [id number] [address] [place] [address], [place] [address] Dec, [facility] [address] [id number] [address] [place] [address], [place] [address] Dec, [facility] [address] [id number] [address] [place] [address], [place] [address] Dec, [facility] [address] [id number] [address] [place] [address], [place] [address] Dec, [facility] [address] [id number] [address] [place] [address], [place] [address] Dec, [facility] [address] [id number] [address] [place] [address], [place] [address] Dec, [facility] [address] [id number] [address] [place] [address], [place] [address] Dec, [facility] [address] [id number] [address] [place] [address], [place] [address] Dec, [facility] [address] [id number] [address] [place] [address], [place] [address] Dec, [facility] [address] [id number] [address] [place] [address], [place] [address] Dec, [facility] [address] [id number] [address] [place] [address], [place] [address] Dec, [facility] [address] [id number] [address] [place] [address], [place] [address] Dec, [facility] [address] [id number] [address] [place] [address], [place] [address] Dec, [facility] [address] [id number] [address] [place] [address], [place] [address] Dec, [facility] [address] [id number] [address] [place] [address], [place] [address] 30 Nov, 2013 [facility] [address] [id number] [address] [place] [address], [place] [address] 30 Nov, 2013 [facility] [address] [id number] [address] [place] [address], [place] [address] 26 Nov, 2013 [facility] [address] [id number] [address] [place] [address], [place] [address] 26 Nov, 2013 [facility] [address] [id number] [address] [place] [address], [place] [address] 24 Nov, 2013 [facility] [address] [id number] [address] [place] [address], [place] [address] 24 Nov, 2013 [facility] [address] [id number] [address] [place] [address], [place] [id number] 23 Nov, 2013 [facility] [address] [id number] [facility] [place] [address] 23 Nov, 2013 [facility] [address] [id number] [facility] [place] [address] 18 Nov, 2013 [facility] [address] [id number] [facility] [place] [address] 18 Nov, 2013 [facility] [address] [id number] [address] [place] [address], [place] [address] 17 Nov, 2013 [facility] [address] [id number] [address] [place] [address], [place] [address] 17 Nov, 2013 [facility] [address] [id number] [address] [place] [address], [place] [address] 11 Nov, 2013 [facility] [address] [id number] [address] [place] [address], [place] [address] 11 Nov, 2013 [facility] [address] [id number] [address] [place] [address], [place] [address] 10 Nov, 2013 [facility] [address] [id number] [address] [place] [address], [place] [address] 10 Nov, 2013 [facility] [address] [id number] [address] [place] [address], [place] [address] 08 Nov, 2013 [facility] [address] [id number] [address] [place] [address], [place] [address] 08 Nov, 2013 [facility] [address] [id number] [address] [place] [address], [place] [address] 22 Sep, 2013 [facility] [address] [id number] [address] [place] [address], [place] [id number] 22 Sep, 2013 [facility] [address] [id number] [address] [place] [address], [place] [address] Sep, 2013 [facility] [address] [id number] [address] [place] [address], [place] [address] 11 Sep, 2013 [facility] [address] [id number] [address] [place] [address], [place] [address] Sep, [facility] [address] [id number] [address] [place] [address], [place] [address] Sep, [facility] [address] [id number] [address] [place] [address], [place] [id number] Aug, [facility] [address] [id number] [address] [place] [address], [place] [address] Aug, [facility] [address] [id number] [address] [place] [address], [place] [id number] Aug, [facility] [address] [id number] [address] [place] [address], [place] [address] Aug, [facility] [address] [id number] [address] [place] [address], [place] [address] Aug, [facility] [address] [id number] [address] [place] [address], [place] [address] Aug, [facility] [address] [id number] [address] [place] [address], [place] [address] Aug, [facility] [address] [id number] [address] [place] [address], [place] [address] Aug, [facility] [address] [id number] [address] [place] [address], [place] [address] Aug, [facility] [address] [id number] [address] [place] [address], [place] [address] Aug, [facility] [address] [id number] [address] [place] [address], [place] [address] Aug, [facility] [address] [id number] [address] [place] [address], [place] [address] July, [facility] [address] [id number] [address] [place] [address], [place] [address] July, [facility] [address] [id number] [address] [place] [address], [place] [address] Jun, [facility] [address] [id number] [address] [place] [address], [place] [address] Jun, [facility] [address] [id number] [address] [place] [address], [place] [id number] 18 Jun, 2013 [facility] [address] [id number] [address] [place] [address], [place] [id number] 18 Jun, 2013 [facility] [address] [id number] [address] [place] [address], [place] [address] Jun, [facility] [address] [id number] [address] [place] [address], [place] [id number] 18 Jun, 2013 [facility] [address] [id number] [address] [place] [address], [place] [address] Jun, [facility] [address] [id number] [address] [place] [address], [place] [address] Jun, [facility] [address] [id number] [address] [place] [address], [place] [address] Jun, [facility] [address] [id number] [address] [place] [address], [place] [address] Jun, [facility] [address] [id number] [address] [place] [address], [place] [address] Jun, [facility] [address] [id number] [address] [place] [address], [place] [address] Jun, [facility] [address] [id number] [address] [place] [address], [place] [address] May, [facility] [address] [id number] [address] [place] [address], [place] [address] May, [facility] [address] [id number] [address] [place] [address], [place] [address] May, [facility] [address] [id number] [address] [place] [address], [place] [address] May, [facility] [address] [id number] [address] [place] [address], [place] [address] 19 May, 2013 [facility] [address] [id number] [address] [place] [address], [place] [address] May, [facility] [address] [id number] [address] [place] [address], [place] [address] May, [facility] [address] [id number] [address] [place] [address], [place] [address] May, [facility] [address] [id number] [address] [place] [address], [place] [address] May, [facility] [address] [id number] [address] [place] [address], [place] [address] May, [facility] [address] [id number] [address] [place] [address], [place] [address] May, [facility] [address] [id number] [address] [place] [address], [place] [address] May, [facility] [address] [id number] [address] [place] [address], [place] [address] Apr, [facility] [address] [id number] [address] [place] [address], [place] [address] Apr, [facility] [address] [id number] [address] [place] [address], [place] [address] Apr, [facility] [address] [id number] [address] [place] [address], [place] [address] Apr, [facility] [address] [id number] [address] [place] [address], [place] [address] Apr, [facility] [address] [id number] [address] [place] [address], [place] [address] Apr, [facility] [address] [id number] [address] [place] [address], [place] [address] Apr, [facility] [address] [id number] [address] [place] [address], [place] [address] Apr, [facility] [address] [id number] [address] [place] [address], [place] [address] Apr, 2013 [facility] [address] [id number] [address] [place] [address], [place] [address] Apr, [facility] [address] [id number] [address] [place] [address], [place] [address] Apr, 2013 [facility] [address] [id number] [address] [place] [address], [place] [address] Apr, 2013 [facility] [address] [id number] [address] [place] [address], [place] [address] Apr, [facility] [address] [id number] [address] [place] [address], [place] [address] Apr, [facility] [address] [id number] [address] [place] [address], [place] [address] Apr, [facility] [address] [id number] [address] [place] [address], [place] [address] Apr, [facility] [address] [id number] [address] [place] [address], [place] [address] 13 Apr, 2013 [facility] [address] [id number] [address] [place] [address], [place] [address] Jan, [facility] [address] [id number] [address] [place] [address], [place] [id number] Jan, [facility] [address] [id number] [address] [place] [address], [place] [address] Jan, [facility] [address] [id number] [address] [place] [address], [place] [address] Jan, [facility] [address] [id number] [address] [place] [address], [place] [address] Jan, [facility] [address] [id number] [address] [place] [address], [place] [address] Jan, [facility] [address] [id number] [address] [place] [address], [place] [address] Jan, [facility] [address] [id number] [address] [place] [address], [place] [address] Dec, [facility] [address] [id number] [address] [place] [address], [place] [address] Dec, [facility] [address] [id number] [address] [place] [address], [place] [address] Dec, [facility] [address] [id number] [address] [place] [address], [place] [address] Nov, [facility] [address] [id number] [address] [place] [address], [place] [address] Nov, [facility] [address] [id number] [address] [place] [address], [place] [address] Nov, [facility] [address] [id number] [address] [place] [address], [place] [address] Nov, [facility] [address] [id number] [address] [place] [address], [place] [address] Oct, [facility] [address] [id number] [address] [place] [address], [place] [address] Oct, [facility] [address] [id number] [address] [place] [address], [place] [address] Oct, [facility] [address] [id number] [address] [place] [address], [place] [address] Oct, [facility] [address] [id number] [address] [place] [address], [place] [address] Oct, [facility] [address] [id number] [address] [place] [address], [place] [address] Sep, [facility] [address] [id number] [address] [place] [address], [place] [address] Sep, [facility] [address] [id number] [address] [place] [address], [place] [address] Sep, [facility] [address] [id number] [address] [place] [address], [place] [address] Sep, [facility] [address] [id number] [address] [place] [address], [place] [id number] Sep, [facility] [address] [id number] [address] [place] [address], [place] [id number] Sep, [facility] [address] [id number] [address] [place] [address], [place] [id number] Sep, [facility] [address] [id number] [address] [place] [address], [place] [id number] Aug, [facility] [address] [id number] [address] [place] [address], [place] [id number] Aug, [facility] [address] [id number] [address] [place] [address], [place] [id number] July, [facility] [address] [id number] [address] [place] [address], [place] [address] Jun, [facility] [address] [id number] [address] [place] [address], [place] [id number] Jun, [facility] [address] [id number] [address] [place] [address], [place] [id number] Jun, [facility] [address] [id number] [address] [place] [address], [place] [address] Apr, [facility] [address] [id number] [address] [place] [address], [place] [id number] Apr, [facility] [address] [id number] [address] [place] [address], [place] [id number] Apr, [facility] [address] [id number] [address] [place] [address], [place] [id number] Mar, [facility] [address] [id number] [address] [place] [address], [place] [id number] Mar, [facility] [address] [id number] [address] [place] [address], [place] [id number] Mar, [facility] [address] [id number] [address] [place] [address], [place] [id number] Mar, [facility] [address] [id number] [address] [place] [address], [place] [id number] Mar, [facility] [address] [id number] [address] [place] [address], [place] [id number] 14 Feb, 2012 [facility] [address] [id number] [address] [place] [address], [place] [id number] 14 Feb, 2012 [facility] [address] [id number] [address] [place] [address], [place] [id number] Jan, [facility] [address] [id number] [address] [place] [address], [place] [address] Jan, [facility] [address] [id number] [address] [place] [address], [place] [address] Jan, [facility] [address] [id number] [address] [place] [address], [place] [id number] Jan, [facility] [address] [id number] [address] [place] [address], [place] [id number] Jan, [facility] [address] [id number] [address] [place] [address], [place] [id number] Jan, [facility] [address] [id number] [address] [place] [address], [place] [address] Jan, [facility] [address] [id number] [address] [place] [address], [place] [address] Dec, [facility] [address] [id number] [address] [place] [address], [place] [address] Dec, [facility] [address] [id number] [address] [place] [address], [place] [address] Dec, [facility] [address] [id number] [address] [place] [address], [place] [address] Dec, [facility] [address] [id number] [address] [place] [address], [place] [id number] Dec, [facility] [address] [id number] [address] [place] [address], [place] [id number] Dec, [facility] [address] [id number] [address] [place] [address], [place] [address] Dec, [facility] [address] [id number] [address] [place] [address], [place] [address] Dec, [facility] [address] [id number] [address] [place] [address], [place] [id number] Dec, [facility] [address] [id number] [address] [place] [address], [place] [id number] Dec, [facility] [address] [id number] [address] [place] [address], [place] [address] Oct, [facility] [address] [id number] [address] [place] [address], [place] [id number] Oct, [facility] [address] [id number] [address] [place] [address], [place] [address] Aug, [facility] [address] [id number] [address] [place] [address], [place] [id number] Aug, [facility] [address] [id number] [address] [place] [address], [place] [address] July, [facility] [address] [id number] [address] [place] [address], [place] [id number] Jun, [facility] [address] [id number] [address] [place] [address], [place] [id number] Jun, [facility] [address] [id number] [address] [place] [address], [place] [id number] May, [facility] [address] [id number] [address] [place] [address], [place] [id number] Apr, [facility] [address] [id number] [address] [place] [address], [place] [id number] Apr, [facility] [address] [id number] [address] [place] [address], [place] [id number] 19 Mar, 2011 [facility] [address] [id number] [address] [place] [address], [place] [id number] 16 Mar, 2011 [facility] [address] [id number] [address] [place] [address], [place] [id number] 19 Feb, 2011 [facility] [address] [id number] [address] [place] [address], [place] [id number] 15 Feb, 2011 [facility] [address] [id number] [address] [place] [address], [place] [id number] 13 Feb, 2011 [facility] [address] [id number] [address] [place] [address], [place] [id number] 13 Feb, 2011 [facility] [address] [id number] [address] [place] [address], [place] [id number] Jan, [facility] [address] [id number] [address] [place] [address], [place] [id number] 17 Dec, 2010 [facility] [address] [id number] [address] [place] [address], [place] [id number] 08 Feb, 2010 [facility] [address] [id number] [address] [place] [address], [place] [id number] Feb, [facility] [address] [id number] [address] [place] [address], [place] [id number] Feb, [facility] [address] [id number] [address] [place] [address], [place] [id number] Feb, [facility] [address] [id number] [address] [place] [address], [place] [id number] 15 Dec, 2009 [facility] [address] [id number] [address] [place] [address], [place] [id number] 15 Dec, 2009 [facility] [address] [id number] [address] [place] [address], [place] [id number] Oct, [facility] [address] [id number] [address] [place] [address], [place] [id number] Jun, [facility] [address] [facility] [id number] [address] [place] [id number] Feb, [facility] [address] [facility] [id number] [address] [place] [phone] Feb, [facility] [address] [facility] [id number] [address] [place] [phone] Feb, [facility] [address] [facility] [id number] [address] [place] [id number] Dec, IMMUNIZATIONS No Known Immunizations SOCIAL HISTORY [...] 1985, 1987 Surgical History cholecystectomy Surgical History [place] Filter 06/2009 Surgical History Left leg exploratory surgery r/t clot Surgical History left shoulder surgery 09/14/17 Surgical History lap band removed 12/2017 Surgical History gastic sleeve 01/2018 Surgical History Back surgery 2019 Hospitalization History Ruptured Ovarian Cyst with abd bleed ing 11/2009 Hospitalization History Broken Back 06/2018
--- OUTSIDE RECORDS SUMMARY | 2019-10-19 12:34 | XMS REPORT ---
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 Active 393428434 Problem Hypertriglyceridemia E78.1 Active 836782786 Problem 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 Active 317336485 Problem Pelvic pain R10.2 Active 33541466 Problem Peripheral edema R60.9 Active 271 085539 Problem Moderate episode of recurrent major depressive disorder F33.1 Active 187512784 Problem Presence of IVC filter Z95.828 Active 586661928 Problem Vitamin D deficiency E55.9 Active 04993297 Problem Generalized anxiety disorder F41.1 A ctive 686450002 Problem Excessive daytime sleepiness G47.19 A ctive 467579417349 Problem Gastroesophageal reflux disease, esophagitis pre sence not specified K21.9 Active 405498407 Problem Thyroid nodule E04.1 Active 61814 5005 Problem Morbid obesity E66.01 Active 05333 6002 ALLERGIES No Information ENCOUNTERS Encounter Location Date Diagnosis [facility] [address] [facility] [id number] [address] [place] [id number] Oct, [facility] [address] [facility] [id number] [address] [place] [phone] Oct, Hypertriglyceridemia E78.1 [facility] [address] [facility] [id number] [address] [place] [phone] Oct, [facility] [address] [id number] [address] [place] [phone] Oct, Hypertriglyceridemia E78.1 [facility] [address] [id number] [address] [place] [id number] Sep, Hypertriglyceridemia E78.1 a nd Vitamin D deficiency E55.9 [facility] [address] [id number] [address] [place] [id number] Sep, [facility] [address] [id number] [address] [place] [address] Sep, Morbid obesity E66.01 ; Mode rate episode of recurrent major depressive disorder F33.1 ; Hypertriglyceridemia E78.1 and Vitamin D deficiency E55.9 [facility] [address] [id number] [address] [place] [id number] Aug, [facility] [address] [id number] [address] [place] [phone] July, [facility] [address] [id number] [address] [place] [phone] July, [facility] [address] [id number] [address] [place] [id number] Jun, [facility] [address] [id number] [address] [place] [id number] Jun, [facility] [address] [id number] [address] [place] [phone] Jun, Closed compression fracture of L3 lumbar vertebra with routine healing, subsequent encounter S32.030D and Drug-induced constipation K59.03 [facility] [address] [id number] [address] [place] [id number] Jun, [facility] [address] [id number] [address] [place] [id number] Jun, [facility] [address] [id number] [address] [place] [id number] Apr, [facility] [address] [place] [id number] [address] [place] [id number] 18 Apr, 2018 Morbid obesity E66.01 [facility] [address] [address] 12 Apr, 2018 Morbid obesity E66.01 ; Hype rtriglyceridemia E78.1 ; Gastroesophageal reflux disease, esophagitis presence not specified K21.9 and Joint pain M25.50 [facility] [address] [id number] Feb, [facility] [address] [address] Feb, [facility] [address] [id number] Jan, Acute bacterial conjunctivit is H10.30 [place] [address] [id number] 08 Dec, 2017 [facility] [address] [id number] 04 Dec, 2017 [facility] [address] [address] 17 Nov, 2017 [facility] [address] [address] 07 Nov, 2017 Obstructive sleep apnea G47. 33 ; Morbid obesity E66.01 and Gastroesophageal reflux disease, esophagitis presence not specified K21.9 [facility] [address] [place] [id number] [address] [place] [id number] 06 Nov, 2017 Encounter for examination of eyes and vision without abnormal findings Z01.00 [facility] [address] [id number] 31 Oct, 2017 Thyroid nodule E04.1 and Scr eening for breast cancer Z12.31 [facility] [address] [place] [id number] [address] [place] [id number] 23 Oct, 2017 History of DVT (deep vein th rombosis) Z86.718 ; Thyroid nodule E04.1 and Gastroesophageal reflux disease, esophagitis presence not specified K21.9 [facility] [address] [id number] [address] [place] [id number] Oct, [facility] [address] [id number] [address] [place] [id number] Sep, [facility] [address] [id number] [address] [place] [id number] Aug, [facility] [address] [id number] [address] [place] [id number] Aug, [place] [address] [place] [id number] [place] [address] Aug, Acute pain of left shoulder M25.512 and Thyroid nodule E04.1 [place] [address] [facility] [id number] [address] [place] [id number] July, Superior glenoid labrum lesi on of left shoulder, subsequent encounter S43.432D [place] [address] [facility] [id number] [address] [place] [id number] Jun, History of DVT (deep vein th rombosis) Z86.718 [place] [address] [facility] [id number] [address] [place] [id number] Jun, History of DVT (deep vein th rombosis) Z86.718 [facility] [address] [facility] [id number] [address] [place] [phone] Jun, Impingement syndrome, should er, left M75.42 [facility] [address] [id number] [address] [place] [address] May, Subacromial bursitis of left shoulder joint M75.52 [facility] [address] [facility] [id number] [address] [place] [id number] May, [place] [address] [facility] [id number] [address] [place] [id number] May, Hypertriglyceridemia E78.1 ; prison (current) use of anticoagulants Z79.01 and Excessive daytime sleepiness G47.19 [facility] [address] [id number] [address] [place] [id number] May, History of DVT (deep vein th rombosis) Z86.718 ; Generalized anxiety disorder F41.1 ; Hypertriglyceridemia E78.1 ; 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 ; Subacromial bursitis of left shoulder joint M75.52 and Excessive daytime sleepiness G47.19 [facility] [address] [id number] [address] [place] [id number] May, [place] [address] [id number] [address] [place] [phone] May, prison (current) use of a nticoagulants Z79.01 [place] [address] [id number] [address] [place] [id number] Apr, prison (current) use of a nticoagulants Z79.01 [place] [address] [id number] [address] [place] [id number] Apr, terminal system operator (current) use of a nticoagulants Z79.01 [facility] [address] [id number] [address] [place] [id number] Apr, prison (current) use of a nticoagulants Z79.01 [facility] [address] [id number] [address] [place] [phone] Apr, [facility] [address] [id number] [address] [place] [id number] Apr, prison (current) use of a nticoagulants Z79.01 [facility] [address] [id number] [address] [place] [id number] 13 Apr, 2017 prison (current) use of a nticoagulants Z79.01 [facility] [address] [id number] [address] [place] [id number] Apr, prison (current) use of a nticoagulants Z79.01 [facility] [address] [id number] [address] [place] [id number] Apr, prison (current) use of a nticoagulants Z79.01 [facility] [address] [id number] [address] [place] [id number] Apr, prison (current) use of a nticoagulants Z79.01 [facility] [address] [id number] [address] [place] [id number] Apr, terminal system operator (current) use of a nticoagulants Z79.01 [facility] [address] [id number] [address] [place] [id number] Mar, terminal system operator (current) use of a nticoagulants Z79.01 [facility] [address] [id number] [address] [place] [id number] Mar, [facility] [address] [id number] [address] [place] [id number] Mar, prison (current) use of a nticoagulants Z79.01 [facility] [address] [id number] [address] [place] [address] [id number] Jan, Dental examination Z01.20 [facility] [address] [id number] [address] [place] [id number] Jan, [facility] [address] [id number] [address] [place] [phone] Jan, prison (current) use of a nticoagulants Z79.01 [facility] [address] [id number] [address] [place] [id number] 17 Jan, 2017 History of DVT (deep vein th rombosis) Z86.718 [facility] [address] [id number] [address] [place] [phone] Jan, Generalized anxiety disorder F41.1 and Peripheral edema R60.9 [facility] [address] [id number] [address] [place] [id number] Nov, History of DVT (deep vein th rombosis) Z86.718 [facility] [address] [id number] [address] [place] [id number] Nov, terminal system operator (current) use of a nticoagulants Z79.01 [facility] [address] [id number] [address] [place] [id number] Nov, Acute non-recurrent maxillar y sinusitis J01.00 [facility] [address] [id number] [address] [place] [id number] Oct, terminal system operator (current) use of a nticoagulants Z79.01 [facility] [address] [id number] [address] [place] [id number] Oct, Personal history of venous t hrombosis and embolism Z86.718 [facility] [address] [id number] [address] [place] [id number] Sep, [facility] [address] [id number] [address] [place] [id number] Sep, Personal history of venous t hrombosis and embolism Z86.718 [facility] [address] [id number] [address] [place] [id number] Sep, terminal system operator (current) use of a nticoagulants Z79.01 [facility] [address] [id number] [address] [place] [id number] Sep, prison (current) use of a nticoagulants Z79.01 [facility] [address] [id number] [address] [place] [id number] Sep, Generalized anxiety disorder F41.1 and History of DVT (deep vein thrombosis) Z86.718 [facility] [address] [id number] [address] [place] [id number] Aug, History of DVT (deep vein th rombosis) Z86.718 ; Generalized anxiety disorder F41.1 ; 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 ; Pelvic pain R10.2 ; Hypertriglyceridemia E78.1 ; Excessive daytime sleepiness G47.19 ; Colon cancer screening Z12.11 ; Screening for breast cancer Z12.39 ; Peripheral edema R60.9 and Gastroesophageal reflux disease, esophagitis presence not specified K21.9 [place] [address] [address] Aug, [place] [address] [address] July, [place] [address] [address] July, History of DVT (deep vein th rombosis) Z86.718 [place] [address] [phone] Jun, Generalized anxiety disorder F41.1 [place] [address] [id number] Jun, History of DVT (deep vein th rombosis) Z86.718 [place] [address] [place] [id number] [place] [address] Jun, History of DVT (deep vein th rombosis) Z86.718 [place] [address] [address] Jun, History of DVT (deep vein th rombosis) Z86.718 [place] [address] [address] Jun, History of DVT (deep vein th rombosis) Z86.718 [place] [address] [place] [id number] [address] [place] [id number] May, History of DVT (deep vein th rombosis) Z86.718 [facility] [address] [id number] [address] [place] [phone] May, terminal system operator (current) use of a nticoagulants Z79.01 [facility] [address] [facility] [id number] [address] [place] [phone] May, prison (current) use of a nticoagulants Z79.01 [facility] [address] [id number] [address] [place] [phone] May, History of DVT (deep vein th rombosis) Z86.[address] [facility] [address] [id number] [address] [place] [id number] 27 Apr, 2016 Bacterial conjunctivitis of left eye H10.9 and H/O motion sickness Z87.898 [facility] [address] [id number] [address] [place] [id number] 24 Apr, 2016 History of DVT (deep vein th rombosis) Z86.718 [facility] [address] [id number] [address] [place] [id number] 23 Apr, 2016 History of DVT (deep vein th rombosis) Z86.718 [facility] [address] [id number] [address] [place] [id number] 15 Apr, 2016 History of DVT (deep vein th rombosis) Z86.718 [facility] [address] [id number] [address] [place] [id number] 14 Apr, 2016 prison (current) use of a nticoagulants Z79.01 [facility] [address] [id number] [address] [place] [id number] Mar, [facility] [address] [facility] [id number] [address] [place] [phone] Mar, terminal system operator (current) use of a nticoagulants Z79.01 [facility] [address] [id number] [address] [place] [phone] Mar, Hypertriglyceridemia E78.1 a nd prison (current) use of anticoagulants Z79.01 [facility] [address] [id number] [address] [place] [id number] Feb, terminal system operator (current) use of a nticoagulants Z79.01 [facility] [address] [id number] [address] [place] [id number] Feb, terminal system operator (current) use of a nticoagulants Z79.01 [facility] [address] [id number] [address] [place] [id number] Feb, prison (current) use of a nticoagulants Z79.01 [facility] [address] [id number] [address] [place] [phone] Dec, [facility] [address] [id number] [address] [place] [id number] Nov, [facility] [address] [id number] [address] [place] [id number] Nov, History of DVT (deep vein th rombosis) Z86.718 ; Tremulousness R25.1 ; Generalized anxiety disorder F41.1 ; Peripheral edema R60.9 and Hypertriglyceridemia E78.1 [facility] [address] [id number] [address] [place] [phone] Oct, History of DVT (deep vein th rombosis) Z86.718 [facility] [address] [id number] [address] [place] [id number] Oct, [facility] [address] [id number] [address] [place] [id number] Sep, History of DVT (deep vein th rombosis) Z86.718 [facility] [address] [id number] [address] [place] [address] Sep, terminal system operator (current) use of a nticoagulants Z79.01 [facility] [address] [facility] [id number] [address] [place] [id number] July, [facility] [address] [facility] [id number] [address] [place] [address] July, prison (current) use of a nticoagulants Z79.01 [facility] [address] [facility] [id number] [address] [place] [id number] July, terminal system operator (current) use of a nticoagulants Z79.01 [facility] [address] [facility] [id number] [address] [place] [id number] Jun, terminal system operator (current) use of a nticoagulants Z79.01 [facility] [address] [facility] [id number] [address] [place] [id number] Jun, Coccyx pain M53.3 ; Encounte r for therapeutic drug level monitoring Z51.81 and prison current use 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.01 [place] [address] [facility] [id number] [address] [place] [phone] May, Abnormal mammogram R92.8 [facility] [place] [address] [facility] [id number] [address] [place] [phone] May, [facility] [place] [address] [address] [facility] [id number] [address] [place] [address] May, Acute vaginitis N76.0 and En counter for other screening for malignant neoplasm of breast Z12.39 [place] [address] [facility] [id number] [address] [place] [id number] Apr, [place] [address] [facility] [id number] [address] [place] [phone] Apr, [place] [address] [facility] [id number] [address] [place] [id number] Apr, Peripheral edema R60.9 [place] [address] [facility] [id number] [address] [place] [phone] Apr, terminal system operator (current) use of a nticoagulants Z79.01 [facility] [address] [id number] [address] [place] [id number] Apr, Peripheral edema R60.9 and L jose martin term (current) 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 Z79.01 [facility] [address] [id number] [address] [place] [id number] Apr, prison (current) use of a nticoagulants Z79.01 [facility] [address] [id number] [address] [place] [id number] Apr, [facility] [address] [id number] [address] [place] [phone] Apr, terminal system operator (current) use of a nticoagulants Z79.01 [facility] [address] [id number] [address] [place] [phone] Apr, Peripheral edema R60.9 [facility] [address] [id number] [address] [place] [id number] Mar, terminal system operator (current) use of a nticoagulants Z79.01 [facility] [address] [id number] [address] [place] [phone] Mar, prison (current) use of a nticoagulants Z79.01 and Hypertriglyceridemia E78.1 [facility] [address] [id number] [address] [place] [phone] Mar, terminal system operator (current) use of a nticoagulants Z79.01 [facility] [address] [id number] [address] [place] [phone] Mar, prison (current) use of a nticoagulants Z79.01 [facility] [address] [id number] [address] [place] [phone] Mar, [facility] [address] [id number] [address] [place] [id number] Mar, prison (current) use of a nticoagulants Z79.01 ; Hypertriglyceridemia E78.1 ; Personal history of venous thrombosis and embolism Z86.718 and Lump R22.9 [place] [address] [id number] [address] [place] [phone] Mar, Personal history of venous t hrombosis and embolism Z86.718 [place] [address] [id number] [address] [place] [id number] Mar, Personal history of venous t hrombosis and embolism Z86.718 [place] [address] [id number] [address] [place] [phone] Mar, [place] [address] [id number] [address] [place] [phone] Dec, Personal history of venous t hrombosis and embolism Z86.718 [place] [address] [id number] [address] [place] [id number] Dec, Personal history of venous t hrombosis and embolism V12.51 [place] [address] [id number] [address] [place] [id number] Nov, Personal history of venous t hrombosis and embolism V12.51 [place] [address] [id number] [address] [place] [id number] Nov, Personal history of venous t hrombosis and embolism V12.51 [place] [address] [id number] [address] [place] [phone] 17 Nov, 2014 Personal history of venous t hrombosis and embolism V12.51 [place] [address] [id number] [address] [place] [phone] Nov, Personal history of venous t hrombosis and embolism V12.51 [place] [address] [id number] [address] [place] [phone] 04 Nov, 2014 [place] [address] [id number] [address] [place] [id number] Oct, Dysuria 788.1 [facility] [address] [id number] [address] [place] [id number] Oct, Personal history of venous t hrombosis and embolism V12.51 [facility] [address] [id number] [address] [place] [id number] Oct, [facility] [address] [id number] [address] [place] [id number] Oct, Personal history of venous t hrombosis and embolism V12.51 [facility] [address] [id number] [address] [place] [id number] Sep, Personal history of venous t hrombosis and embolism V12.51 [facility] [address] [id number] [address] [place] [phone] Sep, Personal history of venous t hrombosis and embolism V12.51 [facility] [address] [id number] [address] [place] [phone] Aug, Personal history of venous t hrombosis and embolism V12.51 [facility] [address] [id number] [address] [place] [phone] Aug, Personal history of venous t hrombosis and embolism V12.51 [facility] [address] [id number] [address] [place] [address] Aug, Personal history of venous t hrombosis and embolism V12.51 [facility] [address] [id number] [address] [place] [address] July, Generalized anxiety disorder 300.02 ; Abdominal pain, left lower quadrant 789.04 and Personal history of venous thrombosis and embolism V12.51 [facility] [address] [id number] [address] [place] [address] Jun, [facility] [address] [id number] [address] [place] [address] Jun, [facility] [address] [id number] [address] [place] [address], [place] [address] May, [facility] [address] [id number] [address] [place] [address], [place] [address] May, [facility] [address] [id number] [address] [place] [address], [place] [address] May, [facility] [address] [id number] [address] [place] [address], [place] [address] May, [facility] [address] [id number] [address] [place] [address], [place] [address] May, [facility] [address] [id number] [address] [place] [address], [place] [address] May, [facility] [address] [id number] [address] [place] [address], [place] [address] May, [facility] [address] [id number] [address] [place] [address], [place] [address] May, [facility] [address] [id number] [address] [place] [address], [place] [address] Apr, [facility] [address] [id number] [address] [place] [address], [place] [address] Apr, [facility] [address] [id number] [address] [place] [address], [place] [address] Apr, [facility] [address] [id number] [address] [place] [address], [place] [address] Apr, [facility] [address] [id number] [address] [place] [address], [place] [address] Apr, [facility] [address] [id number] [address] [place] [address], [place] [address] Mar, [facility] [address] [id number] [address] [place] [address], [place] [address] Mar, [facility] [address] [id number] [address] [place] [address], [place] [address] Mar, [facility] [address] [id number] [address] [place] [address], [place] [address] Mar, [facility] [address] [id number] [address] [place] [address], [place] [address] Mar, [facility] [address] [id number] [address] [place] [address], [place] [address] Mar, [facility] [address] [id number] [address] [place] [address], [place] [address] Feb, [facility] [address] [id number] [address] [place] [address], [place] [address] Feb, [facility] [address] [id number] [address] [place] [address], [place] [address] Feb, [facility] [address] [id number] [address] [place] [address], [place] [address] Feb, [facility] [address] [id number] [address] [place] [address], [place] [address] Feb, [facility] [address] [id number] [address] [place] [address], [place] [address] Feb, [facility] [address] [id number] [address] [place] [address], [place] [address] Feb, [facility] [address] [id number] [address] [place] [address], [place] [address] Feb, [facility] [address] [id number] [address] [place] [address], [place] [address] Feb, [facility] [address] [id number] [address] [place] [address], [place] [address] Feb, [facility] [address] [id number] [address] [place] [address], [place] [address] Jan, [facility] [address] [id number] [address] [place] [address], [place] [address] Jan, [facility] [address] [id number] [address] [place] [address], [place] [address] Jan, [facility] [address] [id number] [address] [place] [address], [place] [address] Jan, [facility] [address] [id number] [address] [place] [address], [place] [address] Jan, [facility] [address] [id number] [address] [place] [address], [place] [address] Jan, [facility] [address] [id number] [address] [place] [address], [place] [address] Jan, [facility] [address] [id number] [address] [place] [address], [place] [address] Jan, [facility] [address] [id number] [address] [place] [address], [place] [address] Jan, [facility] [address] [id number] [address] [place] [address], [place] [address] Jan, [facility] [address] [id number] [address] [place] [address], [place] [address] Dec, [facility] [address] [id number] [address] [place] [address], [place] [address] Dec, [facility] [address] [id number] [address] [place] [address], [place] [address] Dec, [facility] [address] [id number] [address] [place] [address], [place] [address] Dec, [facility] [address] [id number] [address] [place] [address], [place] [address] Dec, [facility] [address] [id number] [address] [place] [address], [place] [address] Dec, [facility] [address] [id number] [address] [place] [address], [place] [address] Dec, [facility] [address] [id number] [address] [place] [address], [place] [address] Dec, [facility] [address] [id number] [address] [place] [address], [place] [address] Dec, [facility] [address] [id number] [address] [place] [address], [place] [address] Dec, [facility] [address] [id number] [address] [place] [address], [place] [address] Dec, [facility] [address] [id number] [address] [place] [address], [place] [address] Dec, [facility] [address] [id number] [address] [place] [address], [place] [address] Dec, [facility] [address] [id number] [address] [place] [address], [place] [address] Dec, [facility] [address] [id number] [address] [place] [address], [place] [address] Dec, [facility] [address] [id number] [address] [place] [address], [place] [address] 30 Nov, 2013 [facility] [address] [id number] [address] [place] [address], [place] [address] 30 Nov, 2013 [facility] [address] [id number] [address] [place] [address], [place] [address] 26 Nov, 2013 [facility] [address] [id number] [address] [place] [address], [place] [address] 26 Nov, 2013 [facility] [address] [id number] [address] [place] [address], [place] [address] 24 Nov, 2013 [facility] [address] [id number] [address] [place] [address], [place] [address] 24 Nov, 2013 [facility] [address] [id number] [address] [place] [address], [place] [address] 23 Nov, 2013 [facility] [address] [id number] [address] [place] [address], [place] [address] 23 Nov, 2013 [facility] [address] [id number] [address] [place] [address] 18 Sep, 2013 [facility] [address] [id number] [facility] [place] [address] 18 Sep, 2013 [facility] [address] [id number] [address] [place] [address], [place] [address] 17 Nov, 2013 [facility] [address] [id number] [address] [place] [address], [place] [address] 17 Nov, 2013 [facility] [address] [id number] [address] [place] [address], [place] [address] 11 Nov, 2013 [facility] [address] [id number] [address] [place] [address], [place] [address] 11 Nov, 2013 [facility] [address] [id number] [address] [place] [address], [place] [address] 10 Nov, 2013 [facility] [address] [id number] [address] [place] [address], [place] [address] 10 Nov, 2013 [facility] [address] [id number] [address] [place] [address], [place] [address] 08 Nov, 2013 [facility] [address] [id number] [address] [place] [address], [place] [address] 08 Nov, 2013 [facility] [address] [id number] [address] [place] [address], [place] [address] Sep, 2013 [facility] [address] [id number] [address] [place] [address], [place] [address] Sep, 2013 [facility] [address] [id number] [address] [place] [address], [place] [address] Sep, 2013 [facility] [address] [id number] [address] [place] [address], [place] [address] Sep, 2013 [facility] [address] [id number] [address] [place] [address], [place] [address] Sep, 2013 [facility] [address] [id number] [address] [place] [address], [place] [address] Sep, 2013 [facility] [address] [id number] [facility] [place] [address] Aug, [facility] [address] [id number] [facility] [place] [address] Aug, [facility] [address] [id number] [facility] [place] [address] Aug, [facility] [address] [id number] [address] [place] [address], [place] [address] Aug, [facility] [address] [id number] [address] [place] [address], [place] [address] Aug, [facility] [address] [id number] [address] [place] [address], [place] [address] Aug, [facility] [address] [id number] [address] [place] [address], [place] [address] Aug, [facility] [address] [id number] [address] [place] [address], [place] [address] Aug, [facility] [address] [id number] [address] [place] [address], [place] [address] Aug, [facility] [address] [id number] [address] [place] [address], [place] [address] Aug, [facility] [address] [id number] [address] [place] [address], [place] [address] Aug, [facility] [address] [id number] [address] [place] [address], [place] [address] July, [facility] [address] [id number] [address] [place] [address], [place] [address] July, [facility] [address] [id number] [address] [place] [address], [place] [address] Jun, [facility] [address] [id number] [address] [place] [address], [place] [address] Jun, [facility] [address] [id number] [address] [place] [address], [place] [address] 18 Jun, 2013 [facility] [address] [id number] [facility] [place] [address] 18 Jun, 2013 [facility] [address] [id number] [facility] [place] [address] 18 Jun, 2013 [facility] [address] [id number] [address] [place] [address], [place] [address] 18 Jun, 2013 [facility] [address] [id number] [address] [place] [address], [place] [address] 15 Jun, 2013 [facility] [address] [id number] [address] [place] [address], [place] [address] 15 Jun, 2013 [facility] [address] [id number] [address] [place] [address], [place] [address] Jun, [facility] [address] [id number] [address] [place] [address], [place] [address] Jun, [facility] [address] [id number] [address] [place] [address], [place] [address] Jun, [facility] [address] [id number] [address] [place] [address], [place] [address] Jun, [facility] [address] [id number] [address] [place] [address], [place] [address] May, [facility] [address] [id number] [address] [place] [address], [place] [address] May, [facility] [address] [id number] [address] [place] [address], [place] [address] May, [facility] [address] [id number] [address] [place] [address], [place] [address] May, [facility] [address] [id number] [address] [place] [address], [place] [address] 19 May, 2013 [facility] [address] [id number] [address] [place] [address], [place] [address] 19 May, 2013 [facility] [address] [id number] [facility] [place] [address] 06 May, 2013 [facility] [address] [id number] [address] [place] [address], [place] [address] May, [facility] [address] [id number] [address] [place] [address], [place] [address] May, [facility] [address] [id number] [address] [place] [address], [place] [address] May, [facility] [address] [id number] [address] [place] [address], [place] [address] May, [facility] [address] [id number] [address] [place] [address], [place] [address] May, [facility] [address] [id number] [address] [place] [address], [place] [address] Apr, [facility] [address] [id number] [address] [place] [address], [place] [address] Apr, [facility] [address] [id number] [address] [place] [address], [place] [address] Apr, [facility] [address] [id number] [address] [place] [address], [place] [address] Apr, [facility] [address] [id number] [address] [place] [address], [place] [address] Apr, [facility] [address] [id number] [address] [place] [address], [place] [address] Apr, [facility] [address] [id number] [address] [place] [address], [place] [address] Apr, [facility] [address] [id number] [address] [place] [address], [place] [address] Apr, [facility] [address] [id number] [address] [place] [address], [place] [address] Apr, [facility] [address] [id number] [address] [place] [address], [place] [address] Apr, [facility] [address] [id number] [address] [place] [address], [place] [address] Apr, [facility] [address] [id number] [address] [place] [address], [place] [address] Apr, [facility] [address] [id number] [address] [place] [address], [place] [address] Apr, [facility] [address] [id number] [address] [place] [address], [place] [address] Apr, [facility] [address] [id number] [address] [place] [address], [place] [address] Apr, [facility] [address] [id number] [address] [place] [address], [place] [address] Apr, [facility] [address] [id number] [address] [place] [address], [place] [address] Apr, [facility] [address] [id number] [address] [place] [address], [place] [address] Jan, [facility] [address] [id number] [address] [place] [address], [place] [address] Jan, [facility] [address] [id number] [address] [place] [address], [place] [address] Jan, [facility] [address] [id number] [address] [place] [address], [place] [address] Jan, [facility] [address] [id number] [address] [place] [address] Jan, [facility] [address] [id number] [address] [place] [address] Jan, [facility] [address] [id number] [address] [place] [address], [place] [address] Jan, [facility] [address] [id number] [address] [place] [address], [place] [address] Dec, [facility] [address] [id number] [address] [place] [address], [place] [address] Dec, [facility] [address] [id number] [address] [place] [address], [place] [address] Dec, [facility] [address] [id number] [address] [place] [address], [place] [address] Nov, [facility] [address] [id number] [address] [place] [address], [place] [address] Nov, [facility] [address] [id number] [address] [place] [address], [place] [address] Nov, [facility] [address] [id number] [address] [place] [address], [place] [address] Nov, [facility] [address] [id number] [address] [place] [address], [place] [address] Oct, [facility] [address] [id number] [address] [place] [address], [place] [address] Oct, [facility] [address] [id number] [address] [place] [address], [place] [address] Oct, [facility] [address] [id number] [address] [place] [address], [place] [address] Oct, [facility] [address] [id number] [address] [place] [address], [place] [address] Oct, [facility] [address] [id number] [address] [place] [address], [place] [address] Sep, [facility] [address] [id number] [address] [place] [address], [place] [address] Sep, [facility] [address] [id number] [address] [place] [address], [place] [address] Sep, [facility] [address] [id number] [address] [place] [address], [place] [address] Sep, [facility] [address] [id number] [address] [place] [address], [place] [address] Sep, [facility] [address] [id number] [address] [place] [address], [place] [address] Sep, [facility] [address] [id number] [address] [place] [address], [place] [address] Sep, [facility] [address] [id number] [address] [place] [address], [place] [address] Aug, [facility] [address] [id number] [address] [place] [address], [place] [address] Aug, [facility] [address] [id number] [address] [place] [address], [place] [address] July, [facility] [address] [id number] [address] [place] [address], [place] [address] Jun, [facility] [address] [id number] [address] [place] [address], [place] [address] Jun, [facility] [address] [id number] [address] [place] [address], [place] [address] Jun, [facility] [address] [id number] [address] [place] [address], [place] [address] Apr, [facility] [address] [id number] [address] [place] [address], [place] [address] Apr, [facility] [address] [id number] [address] [place] [address], [place] [address] Apr, [facility] [address] [id number] [address] [place] [address], [place] [address] Mar, [facility] [address] [id number] [address] [place] [address], [place] [address] Mar, [facility] [address] [id number] [address] [place] [address], [place] [address] Mar, [facility] [address] [id number] [address] [place] [address], [place] [address] Mar, [facility] [address] [id number] [address] [place] [address], [place] [address] 07 Mar, 2012 [facility] [address] [id number] [address] [place] [address], [place] [address] 14 Feb, 2012 [facility] [address] [id number] [address] [place] [address], [place] [address] 14 Feb, 2012 [facility] [address] [id number] [address] [place] [address], [place] [address] 13 Jan, 2012 [facility] [address] [id number] [address] [place] [address], [place] [address] 13 Jan, 2012 [facility] [address] [id number] [address] [place] [address], [place] [address] 13 Jan, 2012 [facility] [address] [id number] [address] [place] [address], [place] [address] Jan, [facility] [address] [id number] [address] [place] [address], [place] [address] Jan, [facility] [address] [id number] [address] [place] [address], [place] [address] 07 Jan, 2012 [facility] [address] [id number] [address] [place] [address], [place] [address] 06 Jan, 2012 [facility] [address] [id number] [address] [place] [address], [place] [address] 31 Dec, 2011 [facility] [address] [id number] [address] [place] [address], [place] [address] 31 Dec, 2011 [facility] [address] [id number] [address] [place] [address], [place] [address] 30 Dec, 2011 [facility] [address] [id number] [address] [place] [address], [place] [address] 30 Dec, 2011 [facility] [address] [id number] [address] [place] [address], [place] [address] 30 Dec, 2011 [facility] [address] [id number] [address] [place] [address], [place] [address] Dec, [facility] [address] [id number] [address] [place] [address], [place] [address] Dec, [facility] [address] [id number] [address] [place] [address], [place] [address] Dec, [facility] [address] [id number] [address] [place] [address], [place] [address] Dec, [facility] [address] [id number] [address] [place] [address], [place] [address] Dec, [facility] [address] [id number] [address] [place] [address], [place] [address] Oct, [facility] [address] [id number] [address] [place] [address], [place] [address] Oct, [facility] [address] [id number] [address] [place] [address], [place] [address] Aug, [facility] [address] [id number] [address] [place] [address], [place] [address] Aug, [facility] [address] [id number] [address] [place] [address], [place] [address] July, [facility] [address] [id number] [address] [place] [address], [place] [address] Jun, [facility] [address] [id number] [address] [place] [address], [place] [address] Jun, [facility] [address] [id number] [address] [place] [address], [place] [address] May, [facility] [address] [id number] [address] [place] [address], [place] [address] Apr, [facility] [address] [id number] [address] [place] [address], [place] [address] Apr, [facility] [address] [id number] [address] [place] [address], [place] [address] Mar, [facility] [address] [id number] [address] [place] [address], [place] [address] 16 Mar, 2011 [facility] [address] [id number] [address] [place] [address], [place] [address] 19 Feb, 2011 [facility] [address] [id number] [address] [place] [address], [place] [address] 15 Feb, 2011 [facility] [address] [id number] [address] [place] [address], [place] [address] 13 Feb, 2011 [facility] [address] [address] [id number] [address] [place] [address], [place] [id number] 13 Feb, 2011 [facility] [address] [id number] [address] [place] [address], [place] [address] Jan, [facility] [address] [id number] [address] [place] [address], [place] [id number] 17 Dec, 2010 [facility] [address] [id number] [address] [place] [address], [place] [id number] 08 Feb, 2010 [facility] [address] [id number] [address] [place] [address], [place] [id number] 02 Feb, 2010 [facility] [address] [id number] [address] [place] [address], [place] [address] Feb, [facility] [address] [id number] [address] [place] [address], [place] [address] Feb, [facility] [address] [id number] [address] [place] [address], [place] [id number] 15 Dec, 2009 [facility] [address] [id number] [address] [place] [address], [place] [id number] 15 Dec, 2009 [facility] [address] [id number] [address] [place] [address], [place] [address] Oct, [facility] [address] [id number] [address] [place] [address], [place] [address] 15 Jun, 2009 [facility] [address] [id number] [address] [place] [address], [place] [address] Feb, [facility] [address] [facility] [id number] [address] [place] [id number] Feb, [facility] [address] [facility] [id number] [address] [place] [id number] Feb, [facility] [address] [facility] [id number] [address] [place] [id number] Dec, IMMUNIZATIONS No Known Immunizations SOCIAL HISTORY [...]
--- OUTSIDE RECORDS SUMMARY | 2019-10-19 12:35 | XMS REPORT ---
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 Active 800343146 Problem Hypertriglyceridemia E78.1 Active 487763511 Problem 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 Active 124042286 Problem Pelvic pain R10.2 Active 26951677 Problem Peripheral edema R60.9 Active 271 368699 Problem Moderate episode of recurrent major depressive disorder F33.1 Active 573898029 Problem Presence of IVC filter Z95.828 Active 601582074 Problem Vitamin D deficiency E55.9 Active 42508046 Problem Generalized anxiety disorder F41.1 A ctive 954650557 Problem Excessive daytime sleepiness G47.19 A ctive 937829865711 Problem Gastroesophageal reflux disease, esophagitis pre sence not specified K21.9 Active 976256299 Problem Thyroid nodule E04.1 Active 46869 5005 Problem Morbid obesity E66.01 Active 51872 6002 ALLERGIES No Information ENCOUNTERS Encounter Location Date Diagnosis [facility] [address] [facility] [id number] [address] [place] [phone] Oct, Hypertriglyceridemia E78.1 [facility] [address] [facility] [id number] [address] [place] [phone] Sep, Hypertriglyceridemia E78.1 a nd Vitamin D deficiency E55.9 [facility] [address] [facility] [id number] [address] [place] [phone] Sep, [facility] [address] [place] [id number] [address] [place] [phone] Sep, Morbid obesity E66.01 ; Mode rate episode of recurrent major depressive disorder F33.1 ; Hypertriglyceridemia E78.1 and Vitamin D deficiency E55.9 [facility] [address] [facility] [id number] [address] [place] [phone] Aug, [facility] [address] [place] [id number] [place] [phone] July, [facility] [address] [place] [id number] [place] [phone] July, [facility] [address] [place] [id number] [place] [phone] Jun, [facility] [address] [place] [id number] [place] [phone] Jun, [facility] [address] [place] [id number] [place] [phone] Jun, Closed compression fracture of L3 lumbar vertebra with routine healing, subsequent encounter S32.030D and Drug-induced constipation K59.03 [facility] [address] [place] [id number] [address] [place] [phone] Jun, [facility] [address] [place] [id number] [address] [place] [phone] Jun, [facility] [address] [place] [id number] [address] [place] [phone] Apr, [facility] [address] [place] [id number] [address] [place] [phone] Apr, Morbid obesity E66.01 [facility] [address] [address] Apr, Morbid obesity E66.01 ; Hype rtriglyceridemia E78.1 ; Gastroesophageal reflux disease, esophagitis presence not specified K21.9 and Joint pain M25.50 [place] [address] [id number] [address] [place] [phone] 22 Feb, 2018 [facility] [address] [facility] [id number] [address] [place] [phone] Feb, [facility] [address] [facility] [id number] [address] [place] [phone] Jan, Acute bacterial conjunctivit is H10.30 [facility] [address] [facility] [id number] [address] [place] [id number] 08 Dec, 2017 [facility] [address] [facility] [id number] [address] [place] [id number] 04 Dec, 2017 [facility] [address] [facility] [id number] [address] [place] [id number] 17 Nov, 2017 [facility] [address] [facility] [id number] [place] [phone] 07 Nov, 2017 Obstructive sleep apnea G47. 33 ; Morbid obesity E66.01 and Gastroesophageal reflux disease, esophagitis presence not specified K21.9 [facility] [address] [id number] [address] [place] [id number] 06 Nov, 2017 Encounter for examination of eyes and vision without abnormal findings Z01.00 [facility] [address] [facility] [id number] [address] [place] [phone] 31 Oct, 2017 Thyroid nodule E04.1 and Scr eening for breast cancer Z12.31 [facility] [address] [facility] [id number] [address] [place] [phone] 23 Oct, 2017 History of DVT (deep vein th rombosis) Z86.718 ; Thyroid nodule E04.1 and Gastroesophageal reflux disease, esophagitis presence not specified K21.9 [facility] [address] [facility] [id number] [address] [place] [phone] Oct, [facility] [address] [facility] [id number] [address] [place] [phone] Sep, [facility] [address] [phone] Aug, [place] [address] [address] Aug, [place] [address] [address] Aug, Acute pain of left shoulder M25.512 and Thyroid nodule E04.1 [place] [address] [address] July, Superior glenoid labrum lesi on of left shoulder, subsequent encounter S43.432D [place] [address] [address] Jun, History of DVT (deep vein th rombosis) Z86.718 [place] [address] [address] Jun, History of DVT (deep vein th rombosis) Z86.718 [place] [address] [address] Jun, Impingement syndrome, should er, left M75.42 [place] [address] [address] May, Subacromial bursitis of left shoulder joint M75.52 [place] [address] [phone] May, [place] [address] [address] May, Hypertriglyceridemia E78.1 ; [facility]DC (current) use of anticoagulants Z79.01 and Excessive daytime sleepiness G47.19 [place] [address] [place] [id number] [place] [id number] May, History of DVT (deep vein th rombosis) Z86.718 ; Generalized anxiety disorder F41.1 ; Hypertriglyceridemia E78.1 ; 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 ; Subacromial bursitis of left shoulder joint M75.52 and Excessive daytime sleepiness G47.19 [facility] [address] [id number] [address] [place] [phone] May, [facility] [address] [id number] [address] [place] [address] May, [facility]DC (current) use of a nticoagulants Z79.01 [facility] [address] [id number] [address] [place] [phone] Apr, [facility]DC (current) use of a nticoagulants Z79.01 [facility] [address] [id number] [address] [place] [phone] Apr, [facility] (current) use of a nticoagulants Z79.01 [facility] [address] [id number] [address] [place] [phone] Apr, termite helper (current) use of a nticoagulants Z79.01 [facility] [address] [id number] [address] [place] [phone] Apr, [facility] [address] [id number] [address] [place] [phone] Apr, [facility]DC (current) use of a nticoagulants Z79.01 [facility] [address] [id number] [address] [place] [phone] Apr, termite helper (current) use of a nticoagulants Z79.01 [facility] [address] [id number] [address] [place] [phone] Apr, termite helper (current) use of a nticoagulants Z79.01 [facility] [address] [id number] [address] [place] [phone] Apr, termite helper (current) use of a nticoagulants Z79.01 [facility] [address] [id number] [address] [place] [phone] Apr, termite helper (current) use of a nticoagulants Z79.01 [facility] [address] [id number] [address] [place] [id number] Apr, [facility] (current) use of a nticoagulants Z79.01 [facility] [address] [id number] [address] [place] [phone] Mar, [facility] (current) use of a nticoagulants Z79.01 [facility] [address] [id number] [address] [place] [phone] Mar, [facility] [address] [id number] [address] [place] [phone] Mar, [facility] (current) use of a nticoagulants Z79.01 [facility] [address] [id number] [address] [place] [id number] Jan, Dental examination Z01.20 [facility] [address] [id number] [address] [place] [id number] Jan, [facility] [address] [id number] [address] [place] [id number] Jan, [facility]DC (current) use of a nticoagulants Z79.01 [facility] [address] [id number] [address] [place] [phone] Jan, History of DVT (deep vein th rombosis) Z86.718 [facility] [address] [id number] [address] [place] [phone] Jan, Generalized anxiety disorder F41.1 and Peripheral edema R60.9 [facility] [address] [id number] [address] [place] [id number] Nov, History of DVT (deep vein th rombosis) Z86.718 [facility] [address] [id number] [address] [place] [address] Nov, termite helper (current) use of a nticoagulants Z79.01 [facility] [address] [id number] [address] [place] [phone] Nov, Acute non-recurrent maxillar y sinusitis J01.00 [facility] [address] [id number] [address] [place] [id number] Oct, [facility] (current) use of a nticoagulants Z79.01 [facility] [address] [id number] [address] [place] [phone] Oct, Personal history of venous t hrombosis and embolism Z86.718 [place] [address] [id number] [address] [place] [phone] Sep, [facility] [address] [facility] [id number] [address] [place] [address] Sep, Personal history of venous t hrombosis and embolism Z86.718 [facility] [address] [id number] [address] [place] [id number] Sep, termite helper (current) use of a nticoagulants Z79.01 [facility] [address] [facility] [id number] [address] [place] [phone] Sep, [facility] (current) use of a nticoagulants Z79.01 [facility] [address] [facility] [id number] [address] [place] [phone] Sep, Generalized anxiety disorder F41.1 and History of DVT (deep vein thrombosis) Z86.718 [facility] [address] [id number] [address] [place] [id number] Aug, History of DVT (deep vein th rombosis) Z86.718 ; Generalized anxiety disorder F41.1 ; [facility]DC (current) use of anticoagulants Z79.01 ; Pelvic pain R10.2 ; Hypertriglyceridemia E78.1 ; Excessive daytime sleepiness G47.19 ; Colon cancer screening Z12.11 ; Screening for breast cancer Z12.39 ; Peripheral edema R60.9 and Gastroesophageal reflux disease, esophagitis presence not specified K21.9 [facility] [address] [id number] [address] [place] [phone] Aug, [facility] [address] [id number] [address] [place] [phone] July, [facility] [address] [facility] [id number] [address] [place] [phone] July, History of DVT (deep vein th rombosis) Z86.718 [facility] [address] [id number] [address] [place] [phone] Jun, Generalized anxiety disorder F41.1 [place] [address] [id number] [address] [place] [phone] Jun, History of DVT (deep vein th rombosis) Z86.718 [place] [address] [facility] [id number] [address] [place] [phone] Jun, History of DVT (deep vein th rombosis) Z86.718 [place] [address] [id number] [address] [place] [id number] Jun, History of DVT (deep vein th rombosis) Z86.718 [place] [address] [id number] [address] [place] [id number] Jun, History of DVT (deep vein th rombosis) Z86.718 [place] [address] [id number] [address] [place] [address] May, History of DVT (deep vein th rombosis) Z86.718 [place] [address] [id number] [address] [place] [phone] May, [facility]DC (current) use of a nticoagulants Z79.01 [place] [address] [id number] [address] [place] [phone] May, [facility] (current) use of a nticoagulants Z79.01 [place] [address] [facility] [id number] [address] [place] [address] May, History of DVT (deep vein th rombosis) Z86.718 [facility] [address] [facility] [id number] [address] [place] [phone] 27 Apr, 2016 Bacterial conjunctivitis of left eye H10.9 and H/O motion sickness Z87.898 [facility] [address] [facility] [id number] [address] [place] [phone] Apr, History of DVT (deep vein th rombosis) Z86.718 [place] [address] [facility] [id number] [address] [place] [phone] Apr, History of DVT (deep vein th rombosis) Z86.718 [facility] [address] [facility] [id number] [address] [place] [id number] 15 Apr, 2016 History of DVT (deep vein th rombosis) Z86.718 [facility] [address] [facility] [id number] [address] [place] [address] 14 Apr, 2016 termite helper (current) use of a nticoagulants Z79.01 [place] [address] [facility] [id number] [address] [place] [phone] Mar, [facility] [address] [facility] [id number] [address] [place] [phone] Mar, termite helper (current) use of a nticoagulants Z79.01 [place] [address] [facility] [id number] [address] [place] [phone] Mar, Hypertriglyceridemia E78.1 a nd [facility]DC (current) use of anticoagulants Z79.01 [place] [address] [facility] [id number] [address] [place] [address] Feb, [facility] (current) use of a nticoagulants Z79.01 [place] [address] [facility] [id number] [address] [place] [address] Feb, [facility] (current) use of a nticoagulants Z79.01 [facility] [address] [id number] [address] [place] [phone] Feb, [facility] (current) use of a nticoagulants Z79.01 [facility] [address] [id number] [address] [place] [phone] Dec, [facility] [address] [id number] [address] [place] [phone] Nov, [place] [address] [id number] [address] [place] [phone] Nov, History of DVT (deep vein th rombosis) Z86.718 ; Tremulousness R25.1 ; Generalized anxiety disorder F41.1 ; Peripheral edema R60.9 and Hypertriglyceridemia E78.1 [place] [address] [id number] [address] [place] [phone] Oct, History of DVT (deep vein th rombosis) Z86.718 [place] [address] [id number] [address] [place] [phone] Oct, [place] [address] [id number] [address] [place] [phone] Sep, History of DVT (deep vein th rombosis) Z86.718 [place] [address] [id number] [address] [place] [address] Sep, [facility] (current) use of a nticoagulants Z79.01 [facility] [address] [id number] [address] [place] [phone] July, [place] [address] [id number] [address] [place] [phone] July, termite helper (current) use of a nticoagulants Z79.01 [place] [address] [id number] [address] [place] [phone] July, termite helper (current) use of a nticoagulants Z79.01 [facility] [address] [id number] [address] [place] [phone] Jun, [facility] (current) use of a nticoagulants Z79.01 [facility] [address] [id number] [address] [place] [phone] Jun, Coccyx pain M53.3 ; Encounte r for therapeutic drug level monitoring Z51.81 and termite helper current use 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.01 [place] [address] [id number] [address] [place] [phone] May, Abnormal mammogram R92.8 [facility] [place] [address] [facility] [id number] [address] [place] [phone] May, [facility] [place] [address] [facility] [id number] [address] [place] [phone] May, Acute vaginitis N76.0 and En counter for other screening for malignant neoplasm of breast Z12.39 [place] [address] [id number] [address] [place] [phone] Apr, [place] [address] [id number] [address] [place] [address] Apr, [place] [address] [id number] [address] [place] [phone] Apr, Peripheral edema R60.9 [place] [address] [id number] [address] [place] [phone] Apr, termite helper (current) use of a nticoagulants Z79.01 [place] [address] [id number] [address] [place] [address] Apr, Peripheral edema R60.9 and L jose martin term (current) 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 Z79.01 [place] [address] [id number] [address] [place] [phone] Apr, [facility] (current) use of a nticoagulants Z79.01 [facility] [address] [id number] [address] [place] [id number] Apr, [facility] [address] [id number] [address] [place] [address] Apr, termite helper (current) use of a nticoagulants Z79.01 [place] [address] [id number] [address] [place] [address] Apr, Peripheral edema R60.9 [place] [address] [id number] [address] [place] [phone] Mar, termite helper (current) use of a nticoagulants Z79.01 [place] [address] [id number] [address] [place] [address] Mar, termite helper (current) use of a nticoagulants Z79.01 and Hypertriglyceridemia E78.1 [place] [address] [id number] [address] [place] [address] Mar, termite helper (current) use of a nticoagulants Z79.01 [place] [address] [id number] [address] [place] [phone] Mar, termite helper (current) use of a nticoagulants Z79.01 [place] [address] [id number] [address] [place] [id number] Mar, [place] [address] [id number] [address] [place] [phone] Mar, termite helper (current) use of a nticoagulants Z79.01 ; Hypertriglyceridemia E78.1 ; Personal history of venous thrombosis and embolism Z86.718 and Lump R22.9 [facility] [address] [id number] [address] [place] [id number] Mar, Personal history of venous t hrombosis and embolism Z86.718 [place] [id number] [id number] [address] [place] [phone] Mar, Personal history of venous t hrombosis and embolism Z86.718 [facility] [address] [id number] [address] [place] [id number] Mar, [facility] [address] [id number] [address] [place] [id number] Dec, Personal history of venous t hrombosis and embolism Z86.718 [facility] [address] [id number] [address] [place] [id number] Dec, Personal history of venous t hrombosis and embolism V12.51 [facility] [address] [id number] [address] [place] [phone] Nov, Personal history of venous t hrombosis and embolism V12.51 [place] [address] [id number] [address] [place] [phone] Nov, Personal history of venous t hrombosis and embolism V12.51 [facility] [address] [id number] [address] [place] [phone] Nov, 2014 Personal history of venous t hrombosis and embolism V12.51 [facility] [address] [id number] [address] [place] [phone] Nov, Personal history of venous t hrombosis and embolism V12.51 [facility] [address] [id number] [address] [place] [phone] Nov, [facility] [address] [id number] [address] [place] [phone] Oct, Dysuria 788.1 [facility] [address] [id number] [address] [place] [phone] Oct, Personal history of venous t hrombosis and embolism V12.51 [facility] [address] [id number] [address] [place] [phone] Oct, [facility] [address] [id number] [address] [place] [phone] Oct, Personal history of venous t hrombosis and embolism V12.51 [facility] [address] [id number] [address] [place] [phone] Sep, Personal history of venous t hrombosis and embolism V12.51 [facility] [address] [id number] [address] [place] [phone] Sep, Personal history of venous t hrombosis and embolism V12.51 [facility] [address] [id number] [address] [place] [phone] Aug, Personal history of venous t hrombosis and embolism V12.51 [facility] [address] [id number] [address] [place] [phone] Aug, Personal history of venous t hrombosis and embolism V12.51 [facility] [address] [id number] [address] [place] [id number] Aug, Personal history of venous t hrombosis and embolism V12.51 [facility] [address] [id number] [address] [place] [id number] July, Generalized anxiety disorder 300.02 ; Abdominal pain, left lower quadrant 789.04 and Personal history of venous thrombosis and embolism V12.51 [facility] [address] [id number] [address] [place] [id number] 14 Jun, 2014 [facility] [address] [id number] [address] [place] [id number] Jun, [facility] [address] [id number] [address] [place] [id number] May, [facility] [address] [id number] [address] [place] [id number] May, [facility] [address] [id number] [address] [place] [id number] May, [facility] [address] [id number] [address] [place] [address], [place] [address] 17 May, 2014 [facility] [address] [id number] [address] [place] [address], [place] [address] May, [facility] [address] [id number] [address] [place] [address], [place] [address] May, [facility] [address] [id number] [address] [place] [address], [place] [address] May, [facility] [address] [id number] [address] [place] [address], [place] [address] May, [facility] [address] [id number] [address] [place] [address], [place] [address] Apr, [facility] [address] [id number] [address] [place] [address], [place] [address] Apr, [facility] [address] [id number] [address] [place] [address], [place] [address] Apr, [facility] [address] [id number] [address] [place] [address], [place] [address] Apr, [facility] [address] [id number] [address] [place] [address], [place] [address] Apr, [facility] [address] [id number] [address] [place] [address], [place] [address] Mar, [facility] [address] [id number] [address] [place] [address], [place] [address] Mar, [facility] [address] [id number] [address] [place] [address], [place] [address] Mar, [facility] [address] [id number] [address] [place] [address], [place] [address] Mar, [facility] [address] [id number] [address] [place] [address], [place] [address] Mar, [facility] [address] [id number] [address] [place] [address], [place] [address] Mar, [facility] [address] [id number] [address] [place] [address], [place] [address] Feb, [facility] [address] [id number] [address] [place] [address], [place] [address] Feb, [facility] [address] [id number] [address] [place] [address], [place] [address] Feb, [facility] [address] [id number] [address] [place] [address], [place] [address] Feb, [facility] [address] [id number] [address] [place] [address], [place] [address] Feb, [facility] [address] [id number] [address] [place] [address], [place] [address] Feb, [facility] [address] [id number] [address] [place] [address], [place] [address] Feb, [facility] [address] [id number] [address] [place] [address], [place] [address] Feb, [facility] [address] [id number] [address] [place] [address], [place] [address] Feb, [facility] [address] [id number] [address] [place] [address], [place] [address] Feb, [facility] [address] [id number] [address] [place] [address], [place] [address] Jan, [facility] [address] [id number] [address] [place] [address], [place] [address] Jan, [facility] [address] [id number] [address] [place] [address], [place] [address] Jan, [facility] [address] [id number] [address] [place] [address], [place] [address] Jan, [facility] [address] [id number] [address] [place] [address], [place] [address] Jan, [facility] [address] [id number] [address] [place] [address], [place] [address] Jan, [facility] [address] [id number] [address] [place] [address], [place] [address] Jan, [facility] [address] [id number] [address] [place] [address], [place] [address] Jan, [facility] [address] [id number] [address] [place] [address], [place] [address] Jan, [facility] [address] [id number] [address] [place] [address], [place] [address] Jan, [facility] [address] [id number] [address] [place] [address], [place] [address] Dec, [facility] [address] [id number] [address] [place] [address], [place] [address] Dec, [facility] [address] [id number] [address] [place] [address], [place] [address] Dec, [facility] [address] [id number] [address] [place] [address], [place] [address] Dec, [facility] [address] [id number] [address] [place] [address], [place] [address] Dec, [facility] [address] [id number] [address] [place] [address], [place] [address] Dec, [facility] [address] [id number] [address] [place] [address], [place] [address] Dec, [facility] [address] [id number] [address] [place] [address], [place] [address] Dec, [facility] [address] [id number] [address] [place] [address], [place] [address] Dec, [facility] [address] [id number] [address] [place] [address], [place] [address] Dec, [facility] [address] [id number] [address] [place] [address], [place] [address] Dec, [facility] [address] [id number] [address] [place] [address], [place] [address] Dec, [facility] [address] [id number] [address] [place] [address], [place] [address] Dec, [facility] [address] [id number] [address] [place] [address], [place] [address] Dec, [facility] [address] [id number] [address] [place] [address], [place] [address] Dec, [facility] [address] [id number] [address] [place] [address], [place] [address] 30 Nov, 2013 [facility] [address] [id number] [address] [place] [address], [place] [address] 30 Nov, 2013 [facility] [address] [id number] [address] [place] [address], [place] [address] Nov, 2013 [facility] [address] [id number] [address] [place] [address], [place] [address] 26 Nov, 2013 [facility] [address] [id number] [address] [place] [address], [place] [address] 24 Nov, 2013 [facility] [address] [id number] [address] [place] [address], [place] [address] 24 Nov, 2013 [facility] [address] [id number] [address] [place] [address], [place] [address] 23 Nov, 2013 [facility] [address] [id number] [address] [place] [address], [place] [address] 23 Nov, 2013 [facility] [address] [id number] [address] [place] [address], [place] [address] 18 Nov, 2013 [facility] [address] [id number] [address] [place] [address], [place] [address] 18 Nov, 2013 [facility] [address] [id number] [address] [place] [address], [place] [address] 17 Nov, 2013 [facility] [address] [id number] [address] [place] [address], [place] [address] 17 Nov, 2013 [facility] [address] [id number] [facility] [place] [address] 11 Nov, 2013 [facility] [address] [id number] [address] [place] [address], [place] [address] 11 Nov, 2013 [facility] [address] [id number] [address] [place] [address], [place] [address] 10 Nov, 2013 [facility] [address] [id number] [address] [place] [address], [place] [address] 10 Nov, 2013 [facility] [address] [id number] [address] [place] [address], [place] [address] 08 Nov, 2013 [facility] [address] [id number] [address] [place] [address], [place] [address] 08 Nov, 2013 [facility] [address] [id number] [address] [place] [address], [place] [address] Sep, [facility] [address] [id number] [address] [place] [address], [place] [address] Sep, [facility] [address] [id number] [address] [place] [address], [place] [address] Sep, [facility] [address] [id number] [address] [place] [address], [place] [address] Sep, [facility] [address] [id number] [address] [place] [address], [place] [address] Sep, [facility] [address] [id number] [address] [place] [address], [place] [address] Sep, [facility] [address] [id number] [address] [place] [address], [place] [address] Aug, [facility] [address] [id number] [address] [place] [address], [place] [address] Aug, [facility] [address] [id number] [address] [place] [address], [place] [address] Aug, [facility] [address] [id number] [address] [place] [address], [place] [address] Aug, [facility] [address] [id number] [address] [place] [address], [place] [address] Aug, [facility] [address] [id number] [address] [place] [address], [place] [address] Aug, [facility] [address] [id number] [address] [place] [address], [place] [address] Aug, [facility] [address] [id number] [address] [place] [address], [place] [address] Aug, [facility] [address] [id number] [address] [place] [address], [place] [address] Aug, [facility] [address] [id number] [address] [place] [address], [place] [address] Aug, [facility] [address] [id number] [address] [place] [address], [place] [address] Aug, [facility] [address] [id number] [address] [place] [address], [place] [address] July, [facility] [address] [id number] [address] [place] [address], [place] [address] July, [facility] [address] [id number] [address] [place] [address], [place] [address] Jun, [facility] [address] [id number] [address] [place] [address], [place] [address] Jun, [facility] [address] [id number] [address] [place] [address], [place] [address] Jun, [facility] [address] [id number] [address] [place] [address], [place] [address] Jun, [facility] [address] [id number] [address] [place] [address], [place] [address] Jun, [facility] [address] [id number] [address] [place] [address], [place] [address] Jun, [facility] [address] [id number] [address] [place] [address], [place] [address] 15 Jun, 2013 [facility] [address] [id number] [address] [place] [address], [place] [address] 15 Jun, 2013 [facility] [address] [id number] [address] [place] [address], [place] [address] Jun, [facility] [address] [id number] [address] [place] [address], [place] [address] Jun, [facility] [address] [id number] [address] [place] [address], [place] [address] Jun, [facility] [address] [id number] [address] [place] [address], [place] [address] Jun, [facility] [address] [id number] [address] [place] [address], [place] [address] May, [facility] [address] [id number] [address] [place] [address], [place] [address] May, [facility] [address] [id number] [address] [place] [address], [place] [address] May, [facility] [address] [id number] [address] [place] [address], [place] [address] May, [facility] [address] [id number] [address] [place] [address], [place] [address] May, [facility] [address] [id number] [address] [place] [address], [place] [address] May, [facility] [address] [id number] [address] [place] [address], [place] [address] May, [facility] [address] [id number] [address] [place] [address], [place] [address] May, [facility] [address] [id number] [address] [place] [address], [place] [address] May, [facility] [address] [id number] [address] [place] [address], [place] [address] May, [facility] [address] [id number] [address] [place] [address], [place] [address] May, [facility] [address] [id number] [address] [place] [address], [place] [address] May, [facility] [address] [id number] [address] [place] [address], [place] [address] Apr, [facility] [address] [id number] [address] [place] [address], [place] [address] Apr, [facility] [address] [id number] [address] [place] [address], [place] [address] Apr, [facility] [address] [id number] [address] [place] [address], [place] [address] Apr, [facility] [address] [id number] [address] [place] [address], [place] [address] Apr, [facility] [address] [id number] [address] [place] [address], [place] [address] Apr, [facility] [address] [id number] [address] [place] [address], [place] [address] Apr, [facility] [address] [id number] [address] [place] [address], [place] [address] Apr, [facility] [address] [id number] [address] [place] [address], [place] [address] Apr, [facility] [address] [id number] [address] [place] [address], [place] [address] Apr, [facility] [address] [id number] [address] [place] [address], [place] [address] Apr, [facility] [address] [id number] [address] [place] [address], [place] [address] Apr, [facility] [address] [id number] [address] [place] [address], [place] [address] Apr, [facility] [address] [id number] [address] [place] [address], [place] [address] Apr, [facility] [address] [id number] [address] [place] [address], [place] [address] Apr, [facility] [address] [id number] [address] [place] [address], [place] [address] Apr, [facility] [address] [id number] [address] [place] [address], [place] [address] Apr, [facility] [address] [id number] [address] [place] [address], [place] [address] Jan, [facility] [address] [id number] [address] [place] [address], [place] [address] Jan, [facility] [address] [id number] [address] [place] [address], [place] [address] Jan, [facility] [address] [id number] [address] [place] [address], [place] [address] Jan, [facility] [address] [id number] [address] [place] [address], [place] [address] Jan, [facility] [address] [id number] [address] [place] [address], [place] [address] Jan, [facility] [address] [id number] [address] [place] [address], [place] [address] Jan, [facility] [address] [id number] [address] [place] [address], [place] [address] Dec, [facility] [address] [id number] [address] [place] [address], [place] [address] Dec, [facility] [address] [id number] [address] [place] [address], [place] [address] 08 Dec, 2012 [facility] [address] [id number] [address] [place] [address], [place] [address] 10 Nov, 2012 [facility] [address] [id number] [facility] [place] [address] Nov, [facility] [address] [id number] [address] [place] [address], [place] [address] 05 Nov, 2012 [facility] [address] [id number] [address] [place] [address], [place] [address] Nov, [facility] [address] [id number] [address] [place] [address], [place] [address] Oct, [facility] [address] [id number] [address] [place] [address], [place] [address] Oct, [facility] [address] [id number] [address] [place] [address], [place] [address] Oct, [facility] [address] [id number] [address] [place] [address], [place] [address] Oct, [facility] [address] [id number] [address] [place] [address], [place] [address] Oct, [facility] [address] [id number] [address] [place] [address], [place] [address] Sep, [facility] [address] [id number] [address] [place] [address], [place] [address] Sep, [facility] [address] [id number] [address] [place] [address], [place] [address] Sep, [facility] [address] [id number] [address] [place] [address], [place] [address] Sep, [facility] [address] [id number] [address] [place] [address], [place] [address] Sep, [facility] [address] [id number] [address] [place] [address], [place] [address] Sep, [facility] [address] [id number] [address] [place] [address], [place] [address] Sep, [facility] [address] [id number] [address] [place] [address], [place] [address] Aug, [facility] [address] [id number] [address] [place] [address], [place] [address] Aug, [facility] [address] [id number] [address] [place] [address], [place] [address] July, [facility] [address] [id number] [address] [place] [address], [place] [address] Jun, [facility] [address] [id number] [address] [place] [address], [place] [address] Jun, [facility] [address] [id number] [address] [place] [address], [place] [address] Jun, [facility] [address] [id number] [address] [place] [address], [place] [address] Apr, [facility] [address] [id number] [address] [place] [address], [place] [address] Apr, [facility] [address] [id number] [address] [place] [address], [place] [address] Apr, [facility] [address] [id number] [address] [place] [address], [place] [address] Mar, [facility] [address] [id number] [address] [place] [address], [place] [address] Mar, [facility] [address] [id number] [address] [place] [address], [place] [address] Mar, [facility] [address] [id number] [address] [place] [address], [place] [address] Mar, [facility] [address] [id number] [address] [place] [address], [place] [address] Mar, [facility] [address] [id number] [address] [place] [address], [place] [address] 14 Feb, 2012 [facility] [address] [id number] [address] [place] [address], [place] [address] Feb, [facility] [address] [id number] [address] [place] [address], [place] [address] 13 Jan, 2012 [facility] [address] [id number] [address] [place] [address], [place] [address] 13 Jan, 2012 [facility] [address] [id number] [address] [place] [address], [place] [address] 13 Jan, 2012 [facility] [address] [id number] [address] [place] [address], [place] [address] Jan, [facility] [address] [id number] [address] [place] [address], [place] [address] 07 Jan, 2012 [facility] [address] [id number] [address] [place] [address], [place] [address] 07 Jan, 2012 [facility] [address] [id number] [address] [place] [address], [place] [address] 06 Jan, 2012 [facility] [address] [id number] [address] [place] [address], [place] [address] 31 Dec, 2011 [facility] [address] [id number] [address] [place] [address], [place] [address] 31 Dec, 2011 [facility] [address] [id number] [address] [place] [address], [place] [address] 30 Dec, 2011 [facility] [address] [id number] [address] [place] [address], [place] [address] 30 Dec, 2011 [facility] [address] [id number] [address] [place] [address], [place] [address] 30 Dec, 2011 [facility] [address] [id number] [address] [place] [id number] 30 Dec, 2011 [facility] [address] [id number] [address] [place] [address], [place] [address] 30 Dec, 2011 [facility] [address] [id number] [address] [place] [address], [place] [address] 30 Dec, 2011 [facility] [address] [id number] [address] [place] [id number] 26 Dec2011 [facility] [address] [id number] [address] [place] [address], [place] [address] Dec, [facility] [address] [id number] [address] [place] [address], [place] [address] Oct, [facility] [address] [id number] [address] [place] [address], [place] [address] Oct, [facility] [address] [id number] [address] [place] [address], [place] [address] Aug, [facility] [address] [id number] [address] [place] [address], [place] [address] Aug, [facility] [address] [id number] [address] [place] [address], [place] [address] July, [facility] [address] [id number] [address] [place] [address], [place] [address] Jun, [facility] [address] [id number] [address] [place] [address], [place] [address] Jun, [facility] [facility] [address] [id number] [address] [place] [address], [place] [phone] May, [facility] [address] [id number] [address] [place] [address], [place] [phone] Apr, [facility] [address] [id number] [address] [place] [address], [place] [phone] Apr, [facility] [address] [id number] [address] [place] [address], [place] [phone] Mar, [facility] [address] [id number] [address] [place] [address], [place] [phone] Mar, [facility] [address] [id number] [address] [place] [address], [place] [id number] Feb, [facility] [address] [id number] [address] [place] [address], [place] [id number] 15 Feb, 2011 [facility] [address] [id number] [address] [place] [phone] Feb, [facility] [address] [id number] [address] [place] [phone] Feb, [facility] [address] [id number] [address] [place] [phone] Jan, [facility] [address] [id number] [address] [place] [phone] Dec, [facility] [address] [id number] [address] [place] [phone] Feb, [facility] [address] [id number] [address] [place] [phone] Feb, [facility] [address] [id number] [address] [place] [phone] Feb, [facility] [address] [id number] [address] [place] [phone] Feb, [facility] [address] [id number] [address] [place] [phone] 15 Dec, 2009 [facility] [address] [id number] [address] [place] [phone] Dec, [facility] [address] [id number] [address] [place] [phone] Oct, [facility] [address] [id number] [address] [place] [phone] Jun, [facility] [address] [id number] [address] [place] [phone] Feb, [facility] [address] [id number] [address] [place] [phone] Feb, [facility] [address] [id number] [address] [place] [phone] Feb, [facility] [address] [id number] [address] [place] [id number] Dec, IMMUNIZATIONS No Known Immunizations SOCIAL HISTORY [...]
--- OUTSIDE RECORDS SUMMARY | 2019-10-19 12:35 | XMS REPORT ---
Author Author KIANA Mary Jane RAMIREZ Organization [facility] Address [address] [place] [address] Care Team Providers Care Industrial Management Teacher Name Role Phone ASHLEY BRUNO Unavailable PROBLEMS Type Condition ICD9-CM Code LYI64-TD Code Onset Dates Condition S tatus SNOMED Code Problem Thyroid follicular adenoma D34 Act phylicia 106403224 Problem History of DVT (deep vein thrombosis) Z86.718 Active 400144950 Problem Factor V Leiden D68.51 Active 3070 00667 Problem intermediate frame tender (current) use of anticoagulants Z79.01 Active 077381597 Problem Hypertriglyceridemia E78.1 Active 803051957 Problem 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 Active 753097256 Problem Pelvic pain R10.2 Active 69590334 Problem Peripheral edema R60.9 Active 271 926242 Problem Moderate episode of recurrent major depressive disorder F33.1 Active 105946770 Problem Presence of IVC filter Z95.828 Active 193378869 Problem Vitamin D deficiency E55.9 Active 69174690 Problem Generalized anxiety disorder F41.1 A ctive 905526858 Problem Excessive daytime sleepiness G47.19 A ctive [id number] Problem Gastroesophageal reflux disease, esophagitis pre sence not specified K21.9 Active 292567218 Problem Thyroid nodule E04.1 Active 93387 5005 Problem Morbid obesity E66.01 Active 23644 6002 ALLERGIES No Information ENCOUNTERS Encounter Location Date Diagnosis [facility] [address] [facility] [id number] [address] [place] [address] Oct, Hypertriglyceridemia E78.1 [facility] [address] [facility] [id number] [address] [place] [address] Sep, Hypertriglyceridemia E78.1 a nd Vitamin D deficiency E55.9 [facility] [address] [facility] [id number] [address] [place] [address] Sep, [facility] [address] [place] [id number] [address] [place] [address] Sep, Morbid obesity E66.01 ; Mode rate episode of recurrent major depressive disorder F33.1 ; Hypertriglyceridemia E78.1 and Vitamin D deficiency E55.9 [facility] [address] [facility] [id number] [address] [place] [address] Aug, [facility] [address] [place] [id number] [place] [address] July, [facility] [address] [place] [id number] [place] [address] July, [facility] [address] [place] [id number] [place] [address] Jun, [facility] [address] [place] [id number] [place] [address] Jun, [facility] [address] [place] [id number] [place] [address] Jun, Closed compression fracture of L3 lumbar vertebra with routine healing, subsequent encounter S32.030D and Drug-induced constipation K59.03 [facility] [address] [place] [id number] [address] [place] [address] Jun, [facility] [address] [place] [id number] [address] [place] [address] Jun, [facility] [address] [place] [id number] [address] [place] [address] Apr, [facility] [address] [place] [id number] [address] [place] [address] Apr, Morbid obesity E66.01 [facility] [address] [address] Apr, Morbid obesity E66.01 ; Hype rtriglyceridemia E78.1 ; Gastroesophageal reflux disease, esophagitis presence not specified K21.9 and Joint pain M25.50 [place] [address] [id number] [address] [place] [phone] 22 Feb, 2018 [facility] [address] [facility] [id number] [address] [place] [address] Feb, [facility] [address] [facility] [id number] [address] [place] [address] Jan, Acute bacterial conjunctivit is H10.30 [facility] [address] [facility] [id number] [address] [place] [phone] 08 Dec, 2017 [facility] [address] [facility] [id number] [address] [place] [address] 04 Dec, 2017 [facility] [address] [facility] [id number] [address] [place] [address] 17 Nov, 2017 [facility] [address] [facility] [id number] [place] [address] 07 Nov, 2017 Obstructive sleep apnea G47. 33 ; Morbid obesity E66.01 and Gastroesophageal reflux disease, esophagitis presence not specified K21.9 [facility] [address] [id number] [address] [place] [id number] 06 Nov, 2017 Encounter for examination of eyes and vision without abnormal findings Z01.00 [facility] [address] [facility] [id number] [address] [place] [address] 31 Oct, 2017 Thyroid nodule E04.1 and Scr eening for breast cancer Z12.31 [facility] [address] [facility] [id number] [address] [place] [address] 23 Oct, 2017 History of DVT (deep vein th rombosis) Z86.718 ; Thyroid nodule E04.1 and Gastroesophageal reflux disease, esophagitis presence not specified K21.9 [facility] [address] [facility] [id number] [address] [place] [address] Oct, [facility] [address] [facility] [id number] [address] [place] [address] Sep, [facility] [address] [address] Aug, [place] [address] [address] Aug, [place] [address] [address] Aug, Acute pain of left shoulder M25.512 and Thyroid nodule E04.1 [place] [address] [address] July, Superior glenoid labrum lesi on of left shoulder, subsequent encounter S43.432D [place] [address] [address] Jun, History of DVT (deep vein th rombosis) Z86.718 [place] [address] [address] Jun, History of DVT (deep vein th rombosis) Z86.718 [place] [address] [address] Jun, Impingement syndrome, should er, left M75.42 [place] [address] [address] May, Subacromial bursitis of left shoulder joint M75.52 [place] [address] [address] May, [place] [address] [address] May, Hypertriglyceridemia E78.1 ; half-way (current) use of anticoagulants Z79.01 and Excessive daytime sleepiness G47.19 [place] [address] [place] [id number] [place] [address] May, History of DVT (deep vein th rombosis) Z86.718 ; Generalized anxiety disorder F41.1 ; Hypertriglyceridemia E78.1 ; intermediate frame tender (current) use of anticoagulants Z79.01 ; Subacromial bursitis of left shoulder joint M75.52 and Excessive daytime sleepiness G47.19 [facility] [address] [id number] [address] [place] [address] May, [facility] [address] [id number] [address] [place] [address] May, half-way (current) use of a nticoagulants Z79.01 [facility] [address] [id number] [address] [place] [address] Apr, half-way (current) use of a nticoagulants Z79.01 [facility] [address] [id number] [address] [place] [address] Apr, half-way (current) use of a nticoagulants Z79.01 [facility] [address] [id number] [address] [place] [address] Apr, intermediate frame tender (current) use of a nticoagulants Z79.01 [facility] [address] [id number] [address] [place] [phone] Apr, [facility] [address] [id number] [address] [place] [address] Apr, half-way (current) use of a nticoagulants Z79.01 [facility] [address] [id number] [address] [place] [address] Apr, intermediate frame tender (current) use of a nticoagulants Z79.01 [facility] [address] [id number] [address] [place] [address] Apr, intermediate frame tender (current) use of a nticoagulants Z79.01 [facility] [address] [id number] [address] [place] [address] Apr, intermediate frame tender (current) use of a nticoagulants Z79.01 [facility] [address] [id number] [address] [place] [address] Apr, intermediate frame tender (current) use of a nticoagulants Z79.01 [facility] [address] [id number] [address] [place] [address] Apr, half-way (current) use of a nticoagulants Z79.01 [facility] [address] [id number] [address] [place] [address] Mar, half-way (current) use of a nticoagulants Z79.01 [facility] [address] [id number] [address] [place] [address] Mar, [facility] [address] [id number] [address] [place] [address] Mar, half-way (current) use of a nticoagulants Z79.01 [facility] [address] [id number] [address] [place] [id number] Jan, Dental examination Z01.20 [facility] [address] [id number] [address] [place] [id number] Jan, [facility] [address] [id number] [address] [place] [address] Jan, half-way (current) use of a nticoagulants Z79.01 [facility] [address] [id number] [address] [place] [address] Jan, History of DVT (deep vein th rombosis) Z86.718 [facility] [address] [id number] [address] [place] [address] Jan, Generalized anxiety disorder F41.1 and Peripheral edema R60.9 [facility] [address] [id number] [address] [place] [address] Nov, History of DVT (deep vein th rombosis) Z86.718 [facility] [address] [id number] [address] [place] [address] Nov, intermediate frame tender (current) use of a nticoagulants Z79.01 [facility] [address] [id number] [address] [place] [address] Nov, Acute non-recurrent maxillar y sinusitis J01.00 [facility] [address] [id number] [address] [place] [address] Oct, half-way (current) use of a nticoagulants Z79.01 [facility] [address] [id number] [address] [place] [address] Oct, Personal history of venous t hrombosis and embolism Z86.718 [place] [address] [id number] [address] [place] [address] Sep, [facility] [address] [facility] [id number] [address] [place] [address] Sep, Personal history of venous t hrombosis and embolism Z86.718 [facility] [address] [id number] [address] [place] [address] Sep, intermediate frame tender (current) use of a nticoagulants Z79.01 [facility] [address] [facility] [id number] [address] [place] [address] Sep, half-way (current) use of a nticoagulants Z79.01 [facility] [address] [facility] [id number] [address] [place] [address] Sep, Generalized anxiety disorder F41.1 and History of DVT (deep vein thrombosis) Z86.718 [facility] [address] [id number] [address] [place] [address] Aug, History of DVT (deep vein th rombosis) Z86.718 ; Generalized anxiety disorder F41.1 ; half-way (current) use of anticoagulants Z79.01 ; Pelvic pain R10.2 ; Hypertriglyceridemia E78.1 ; Excessive daytime sleepiness G47.19 ; Colon cancer screening Z12.11 ; Screening for breast cancer Z12.39 ; Peripheral edema R60.9 and Gastroesophageal reflux disease, esophagitis presence not specified K21.9 [facility] [address] [id number] [address] [place] [phone] Aug, [facility] [address] [id number] [address] [place] [address] July, [facility] [address] [facility] [id number] [address] [place] [address] July, History of DVT (deep vein th rombosis) Z86.718 [facility] [address] [id number] [address] [place] [address] Jun, Generalized anxiety disorder F41.1 [place] [address] [id number] [address] [place] [address] Jun, History of DVT (deep vein th rombosis) Z86.718 [place] [address] [facility] [id number] [address] [place] [address] Jun, History of DVT (deep vein th rombosis) Z86.718 [place] [address] [id number] [address] [place] [phone] Jun, History of DVT (deep vein th rombosis) Z86.718 [place] [address] [id number] [address] [place] [address] Jun, History of DVT (deep vein th rombosis) Z86.718 [place] [address] [id number] [address] [place] [address] May, History of DVT (deep vein th rombosis) Z86.718 [place] [address] [id number] [address] [place] [address] May, half-way (current) use of a nticoagulants Z79.01 [place] [address] [id number] [address] [place] [address] May, half-way (current) use of a nticoagulants Z79.01 [place] [address] [facility] [id number] [address] [place] [address] May, History of DVT (deep vein th rombosis) Z86.718 [facility] [address] [facility] [id number] [address] [place] [address] 27 Apr, 2016 Bacterial conjunctivitis of left eye H10.9 and H/O motion sickness Z87.898 [facility] [address] [facility] [id number] [address] [place] [address] Apr, History of DVT (deep vein th rombosis) Z86.718 [place] [address] [facility] [id number] [address] [place] [address] Apr, History of DVT (deep vein th rombosis) Z86.718 [facility] [address] [facility] [id number] [address] [place] [address] 15 Apr, 2016 History of DVT (deep vein th rombosis) Z86.718 [facility] [address] [facility] [id number] [address] [place] [address] 14 Apr, 2016 intermediate frame tender (current) use of a nticoagulants Z79.01 [place] [address] [facility] [id number] [address] [place] [address] Mar, [facility] [address] [facility] [id number] [address] [place] [address] Mar, intermediate frame tender (current) use of a nticoagulants Z79.01 [place] [address] [facility] [id number] [address] [place] [address] Mar, Hypertriglyceridemia E78.1 a nd half-way (current) use of anticoagulants Z79.01 [place] [address] [facility] [id number] [address] [place] [address] Feb, half-way (current) use of a nticoagulants Z79.01 [place] [address] [facility] [id number] [address] [place] [address] Feb, half-way (current) use of a nticoagulants Z79.01 [facility] [address] [id number] [address] [place] [address] Feb, half-way (current) use of a nticoagulants Z79.01 [facility] [address] [id number] [address] [place] [address] Dec, [facility] [address] [id number] [address] [place] [address] Nov, [place] [address] [id number] [address] [place] [address] Nov, History of DVT (deep vein th rombosis) Z86.718 ; Tremulousness R25.1 ; Generalized anxiety disorder F41.1 ; Peripheral edema R60.9 and Hypertriglyceridemia E78.1 [place] [address] [id number] [address] [place] [address] Oct, History of DVT (deep vein th rombosis) Z86.718 [place] [address] [id number] [address] [place] [address] Oct, [place] [address] [id number] [address] [place] [address] Sep, History of DVT (deep vein th rombosis) Z86.718 [place] [address] [id number] [address] [place] [address] Sep, half-way (current) use of a nticoagulants Z79.01 [facility] [address] [id number] [address] [place] [address] July, [place] [address] [id number] [address] [place] [address] July, intermediate frame tender (current) use of a nticoagulants Z79.01 [place] [address] [id number] [address] [place] [address] July, intermediate frame tender (current) use of a nticoagulants Z79.01 [facility] [address] [id number] [address] [place] [address] Jun, half-way (current) use of a nticoagulants Z79.01 [facility] [address] [id number] [address] [place] [address] Jun, Coccyx pain M53.3 ; Encounte r for therapeutic drug level monitoring Z51.81 and intermediate frame tender current use 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.01 [place] [address] [id number] [address] [place] [address] May, Abnormal mammogram R92.8 [facility] [place] [address] [facility] [id number] [address] [place] [address] May, [facility] [place] [address] [facility] [id number] [address] [place] [address] May, Acute vaginitis N76.0 and En counter for other screening for malignant neoplasm of breast Z12.39 [place] [address] [id number] [address] [place] [address] Apr, [place] [address] [id number] [address] [place] [address] Apr, [place] [address] [id number] [address] [place] [address] Apr, Peripheral edema R60.9 [place] [address] [id number] [address] [place] [address] Apr, intermediate frame tender (current) use of a nticoagulants Z79.01 [place] [address] [id number] [address] [place] [address] Apr, Peripheral edema R60.9 and L jsoe martin term (current) 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 Z79.01 [place] [address] [id number] [address] [place] [address] Apr, half-way (current) use of a nticoagulants Z79.01 [facility] [address] [id number] [address] [place] [address] Apr, [facility] [address] [id number] [address] [place] [address] Apr, intermediate frame tender (current) use of a nticoagulants Z79.01 [place] [address] [id number] [address] [place] [address] Apr, Peripheral edema R60.9 [place] [address] [id number] [address] [place] [address] Mar, intermediate frame tender (current) use of a nticoagulants Z79.01 [place] [address] [id number] [address] [place] [address] Mar, intermediate frame tender (current) use of a nticoagulants Z79.01 and Hypertriglyceridemia E78.1 [place] [address] [id number] [address] [place] [address] Mar, intermediate frame tender (current) use of a nticoagulants Z79.01 [place] [address] [id number] [address] [place] [address] Mar, intermediate frame tender (current) use of a nticoagulants Z79.01 [place] [address] [id number] [address] [place] [address] Mar, [place] [address] [id number] [address] [place] [address] Mar, intermediate frame tender (current) use of a nticoagulants Z79.01 ; Hypertriglyceridemia E78.1 ; Personal history of venous thrombosis and embolism Z86.718 and Lump R22.9 [facility] [address] [id number] [address] [place] [address] Mar, Personal history of venous t hrombosis and embolism Z86.718 [place] [address] [id number] [address] [place] [address] Mar, Personal history of venous t hrombosis and embolism Z86.718 [facility] [address] [id number] [address] [place] [address] Mar, [facility] [address] [id number] [address] [place] [address] Dec, Personal history of venous t hrombosis and embolism Z86.718 [facility] [address] [id number] [address] [place] [address] Dec, Personal history of venous t hrombosis and embolism V12.51 [facility] [address] [id number] [address] [place] [address] Nov, Personal history of venous t hrombosis and embolism V12.51 [place] [address] [id number] [address] [place] [address] Nov, Personal history of venous t hrombosis and embolism V12.51 [facility] [address] [id number] [address] [place] [address] 17 Nov, 2014 Personal history of venous t hrombosis and embolism V12.51 [facility] [address] [id number] [address] [place] [address] Nov, Personal history of venous t hrombosis and embolism V12.51 [facility] [address] [id number] [address] [place] [address] Nov, [facility] [address] [id number] [address] [place] [address] Oct, Dysuria 788.1 [facility] [address] [id number] [address] [place] [address] Oct, Personal history of venous t hrombosis and embolism V12.51 [facility] [address] [id number] [address] [place] [address] Oct, [facility] [address] [id number] [address] [place] [address] Oct, Personal history of venous t hrombosis and embolism V12.51 [facility] [address] [id number] [address] [place] [address] Sep, Personal history of venous t hrombosis and embolism V12.51 [facility] [address] [id number] [address] [place] [id number] Sep, Personal history of venous t hrombosis and embolism V12.51 [facility] [address] [id number] [address] [place] [id number] Aug, Personal history of venous t hrombosis and embolism V12.51 [facility] [address] [id number] [address] [place] [phone] Aug, Personal history of venous t hrombosis and embolism V12.51 [facility] [address] [id number] [address] [place] [phone] Aug, Personal history of venous t hrombosis and embolism V12.51 [facility] [address] [id number] [place] [address] July, Generalized anxiety disorder 300.02 ; Abdominal pain, left lower quadrant 789.04 and Personal history of venous thrombosis and embolism V12.51 [facility] [address] [id number] [address] [place] [address] 14 Jun, 2014 [facility] [address] [id number] [address] [place] [address] Jun, [facility] [address] [id number] [address] [place] [address] May, [facility] [address] [id number] [address] [place] [address] May, [facility] [address] [id number] [address] [place] [address] May, [facility] [address] [id number] [address] [place] [address], [place] [address] 17 May, 2014 [facility] [address] [id number] [address] [place] [address], [place] [address] May, [facility] [address] [id number] [address] [place] [address], [place] [address] May, [facility] [address] [id number] [address] [place] [address], [place] [address] May, [facility] [address] [id number] [address] [place] [address], [place] [address] May, [facility] [address] [id number] [address] [place] [address], [place] [address] Apr, [facility] [address] [id number] [address] [place] [address], [place] [address] Apr, [facility] [address] [id number] [address] [place] [address], [place] [address] Apr, [facility] [address] [id number] [address] [place] [address], [place] [address] Apr, [facility] [address] [id number] [address] [place] [address], [place] [address] Apr, [facility] [address] [id number] [address] [place] [address], [place] [address] Mar, [facility] [address] [id number] [address] [place] [address], [place] [address] Mar, [facility] [address] [id number] [address] [place] [address], [place] [address] Mar, [facility] [address] [id number] [address] [place] [address], [place] [address] Mar, [facility] [address] [id number] [address] [place] [address], [place] [address] Mar, [facility] [address] [id number] [address] [place] [address], [place] [address] Mar, [facility] [address] [id number] [address] [place] [address], [place] [address] Feb, [facility] [address] [id number] [address] [place] [address], [place] [address] Feb, [facility] [address] [id number] [address] [place] [address], [place] [address] Feb, [facility] [address] [id number] [address] [place] [address], [place] [address] Feb, [facility] [address] [id number] [address] [place] [address], [place] [address] Feb, [facility] [address] [id number] [address] [place] [address], [place] [address] Feb, [facility] [address] [id number] [address] [place] [address], [place] [address] Feb, [facility] [address] [id number] [address] [place] [address], [place] [address] Feb, [facility] [address] [id number] [address] [place] [address], [place] [address] Feb, [facility] [address] [id number] [address] [place] [address], [place] [address] Feb, [facility] [address] [id number] [address] [place] [address], [place] [address] Jan, [facility] [address] [id number] [address] [place] [address], [place] [address] Jan, [facility] [address] [id number] [address] [place] [address], [place] [address] Jan, [facility] [address] [id number] [address] [place] [address], [place] [address] Jan, [facility] [address] [id number] [address] [place] [address], [place] [address] Jan, [facility] [address] [id number] [address] [place] [address], [place] [address] Jan, [facility] [address] [id number] [address] [place] [address], [place] [address] Jan, [facility] [address] [id number] [address] [place] [address], [place] [address] Jan, [facility] [address] [id number] [address] [place] [address], [place] [address] Jan, [facility] [address] [id number] [address] [place] [address], [place] [address] Jan, [facility] [address] [id number] [address] [place] [address], [place] [address] Dec, [facility] [address] [id number] [address] [place] [address], [place] [address] Dec, [facility] [address] [id number] [address] [place] [address], [place] [address] Dec, [facility] [address] [id number] [address] [place] [address], [place] [address] Dec, [facility] [address] [id number] [address] [place] [address], [place] [address] Dec, [facility] [address] [id number] [address] [place] [address], [place] [address] Dec, [facility] [address] [id number] [address] [place] [address], [place] [address] Dec, [facility] [address] [id number] [address] [place] [address], [place] [address] Dec, [facility] [address] [id number] [address] [place] [address], [place] [address] Dec, [facility] [address] [id number] [address] [place] [address], [place] [address] Dec, [facility] [address] [id number] [address] [place] [address], [place] [address] Dec, [facility] [address] [id number] [address] [place] [address], [place] [address] Dec, [facility] [address] [id number] [address] [place] [address], [place] [address] Dec, [facility] [address] [id number] [address] [place] [address], [place] [address] Dec, [facility] [address] [id number] [address] [place] [address], [place] [address] Dec, [facility] [address] [id number] [address] [place] [address], [place] [address] 30 Nov, 2013 [facility] [address] [id number] [address] [place] [address], [place] [address] 30 Nov, 2013 [facility] [address] [id number] [address] [place] [address], [place] [address] Nov, 2013 [facility] [address] [id number] [address] [place] [address], [place] [address] 26 Nov, 2013 [facility] [address] [id number] [address] [place] [address], [place] [address] 24 Nov, 2013 [facility] [address] [id number] [address] [place] [address], [place] [address] 24 Nov, 2013 [facility] [address] [id number] [address] [place] [address], [place] [address] 23 Nov, 2013 [facility] [address] [id number] [address] [place] [address], [place] [address] 23 Nov, 2013 [facility] [address] [id number] [address] [place] [address], [place] [address] 18 Nov, 2013 [facility] [address] [id number] [address] [place] [address], [place] [address] 18 Nov, 2013 [facility] [address] [id number] [address] [place] [address], [place] [address] 17 Nov, 2013 [facility] [address] [id number] [address] [place] [address], [place] [address] 17 Nov, 2013 [facility] [address] [id number] [facility] [place] [address] 11 Nov, 2013 [facility] [address] [id number] [address] [place] [address], [place] [address] 11 Nov, 2013 [facility] [address] [id number] [address] [place] [address], [place] [address] 10 Nov, 2013 [facility] [address] [id number] [address] [place] [address], [place] [address] 10 Nov, 2013 [facility] [address] [id number] [address] [place] [address], [place] [address] 08 Nov, 2013 [facility] [address] [id number] [address] [place] [address], [place] [address] 08 Nov, 2013 [facility] [address] [id number] [address] [place] [address], [place] [address] Sep, [facility] [address] [id number] [address] [place] [address], [place] [address] Sep, [facility] [address] [id number] [address] [place] [address], [place] [address] Sep, [facility] [address] [id number] [address] [place] [address], [place] [address] Sep, [facility] [address] [id number] [address] [place] [address], [place] [address] Sep, [facility] [address] [id number] [address] [place] [address], [place] [address] Sep, [facility] [address] [id number] [address] [place] [address], [place] [address] Aug, [facility] [address] [id number] [address] [place] [address], [place] [address] Aug, [facility] [address] [id number] [address] [place] [address], [place] [address] Aug, [facility] [address] [id number] [address] [place] [address], [place] [address] Aug, [facility] [address] [id number] [address] [place] [address], [place] [address] Aug, [facility] [address] [id number] [address] [place] [address], [place] [address] Aug, [facility] [address] [id number] [address] [place] [address], [place] [address] Aug, [facility] [address] [id number] [address] [place] [address], [place] [address] Aug, [facility] [address] [id number] [address] [place] [address], [place] [address] Aug, [facility] [address] [id number] [address] [place] [address], [place] [address] Aug, [facility] [address] [id number] [address] [place] [address], [place] [address] Aug, [facility] [address] [id number] [address] [place] [address], [place] [address] July, [facility] [address] [id number] [address] [place] [address], [place] [address] July, [facility] [address] [id number] [address] [place] [address], [place] [address] Jun, [facility] [address] [id number] [address] [place] [address], [place] [address] Jun, [facility] [address] [id number] [address] [place] [address], [place] [address] Jun, [facility] [address] [id number] [address] [place] [address], [place] [address] Jun, [facility] [address] [id number] [address] [place] [address], [place] [address] Jun, [facility] [address] [id number] [address] [place] [address], [place] [address] Jun, [facility] [address] [id number] [address] [place] [address], [place] [address] 15 Jun, 2013 [facility] [address] [id number] [address] [place] [address], [place] [address] 15 Jun, 2013 [facility] [address] [id number] [address] [place] [address], [place] [address] Jun, [facility] [address] [id number] [address] [place] [address], [place] [address] Jun, [facility] [address] [id number] [address] [place] [address], [place] [address] Jun, [facility] [address] [id number] [address] [place] [address], [place] [address] Jun, [facility] [address] [id number] [address] [place] [address], [place] [address] May, [facility] [address] [id number] [address] [place] [address], [place] [address] May, [facility] [address] [id number] [address] [place] [address], [place] [address] May, [facility] [address] [id number] [address] [place] [address], [place] [address] May, [facility] [address] [id number] [address] [place] [address], [place] [address] May, [facility] [address] [id number] [address] [place] [address], [place] [address] May, [facility] [address] [id number] [address] [place] [address], [place] [address] May, [facility] [address] [id number] [address] [place] [address], [place] [address] May, [facility] [address] [id number] [address] [place] [address], [place] [address] May, [facility] [address] [id number] [address] [place] [address], [place] [address] May, [facility] [address] [id number] [address] [place] [address], [place] [address] May, [facility] [address] [id number] [address] [place] [address], [place] [address] May, [facility] [address] [id number] [address] [place] [address], [place] [address] Apr, [facility] [address] [id number] [address] [place] [address], [place] [address] Apr, [facility] [address] [id number] [address] [place] [address], [place] [address] Apr, [facility] [address] [id number] [address] [place] [address], [place] [address] Apr, [facility] [address] [id number] [address] [place] [address], [place] [address] Apr, [facility] [address] [id number] [address] [place] [address], [place] [address] Apr, [facility] [address] [id number] [address] [place] [address], [place] [address] Apr, [facility] [address] [id number] [address] [place] [address], [place] [address] Apr, [facility] [address] [id number] [address] [place] [address], [place] [address] Apr, [facility] [address] [id number] [address] [place] [address], [place] [address] Apr, [facility] [address] [id number] [address] [place] [address], [place] [address] Apr, [facility] [address] [id number] [address] [place] [address], [place] [address] Apr, [facility] [address] [id number] [address] [place] [address], [place] [address] Apr, [facility] [address] [id number] [address] [place] [address], [place] [address] Apr, [facility] [address] [id number] [address] [place] [address], [place] [address] Apr, [facility] [address] [id number] [address] [place] [address], [place] [address] Apr, [facility] [address] [id number] [address] [place] [address], [place] [address] Apr, [facility] [address] [id number] [address] [place] [address], [place] [address] Jan, [facility] [address] [id number] [address] [place] [address], [place] [address] Jan, [facility] [address] [id number] [address] [place] [address], [place] [address] Jan, [facility] [address] [id number] [address] [place] [address], [place] [address] Jan, [facility] [address] [id number] [address] [place] [address], [place] [address] Jan, [facility] [address] [id number] [address] [place] [address], [place] [address] Jan, [facility] [address] [id number] [address] [place] [address], [place] [address] Jan, [facility] [address] [id number] [address] [place] [address], [place] [address] Dec, [facility] [address] [id number] [address] [place] [address], [place] [address] Dec, [facility] [address] [id number] [address] [place] [address], [place] [address] 08 Dec, 2012 [facility] [address] [id number] [address] [place] [address], [place] [address] 10 Nov, 2012 [facility] [address] [id number] [facility] [place] [address] Nov, [facility] [address] [id number] [address] [place] [address], [place] [address] 05 Nov, 2012 [facility] [address] [id number] [address] [place] [address], [place] [address] Nov, [facility] [address] [id number] [address] [place] [address], [place] [address] Oct, [facility] [address] [id number] [address] [place] [address], [place] [address] Oct, [facility] [address] [id number] [address] [place] [address], [place] [address] Oct, [facility] [address] [id number] [address] [place] [address], [place] [address] Oct, [facility] [address] [id number] [address] [place] [address], [place] [address] Oct, [facility] [address] [id number] [address] [place] [address], [place] [address] Sep, [facility] [address] [id number] [address] [place] [address], [place] [address] Sep, [facility] [address] [id number] [address] [place] [address], [place] [address] Sep, [facility] [address] [id number] [address] [place] [address], [place] [address] Sep, [facility] [address] [id number] [address] [place] [address], [place] [address] Sep, [facility] [address] [id number] [address] [place] [address], [place] [address] Sep, [facility] [address] [id number] [address] [place] [address], [place] [address] Sep, [facility] [address] [id number] [address] [place] [address], [place] [address] Aug, [facility] [address] [id number] [address] [place] [address], [place] [address] Aug, [facility] [address] [id number] [address] [place] [address], [place] [address] July, [facility] [address] [id number] [address] [place] [address], [place] [address] Jun, [facility] [address] [id number] [address] [place] [address], [place] [address] Jun, [facility] [address] [id number] [address] [place] [address], [place] [address] Jun, [facility] [address] [id number] [address] [place] [address], [place] [address] Apr, [facility] [address] [id number] [address] [place] [address], [place] [address] Apr, [facility] [address] [id number] [address] [place] [address], [place] [address] Apr, [facility] [address] [id number] [address] [place] [address], [place] [address] Mar, [facility] [address] [id number] [address] [place] [address], [place] [address] Mar, [facility] [address] [id number] [address] [place] [address], [place] [address] Mar, [facility] [address] [id number] [address] [place] [address], [place] [address] Mar, [facility] [address] [id number] [address] [place] [address], [place] [address] Mar, [facility] [address] [id number] [address] [place] [address], [place] [address] 14 Feb, 2012 [facility] [address] [id number] [address] [place] [address], [place] [address] Feb, [facility] [address] [id number] [address] [place] [address], [place] [address] 13 Jan, 2012 [facility] [address] [id number] [address] [place] [address], [place] [address] 13 Jan, 2012 [facility] [address] [id number] [address] [place] [address], [place] [address] 13 Jan, 2012 [facility] [address] [id number] [address] [place] [address], [place] [address] Jan, [facility] [address] [id number] [address] [place] [address], [place] [address] 07 Jan, 2012 [facility] [address] [id number] [address] [place] [address], [place] [address] 07 Jan, 2012 [facility] [address] [id number] [address] [place] [address], [place] [address] 06 Jan, 2012 [facility] [address] [id number] [address] [place] [address], [place] [address] 31 Dec, 2011 [facility] [address] [id number] [address] [place] [address], [place] [address] 31 Dec, 2011 [facility] [address] [id number] [address] [place] [address], [place] [address] 30 Dec, 2011 [facility] [address] [id number] [address] [place] [address], [place] [address] 30 Dec, 2011 [facility] [address] [id number] [address] [place] [address], [place] [address] 30 Dec, 2011 [facility] [address] [id number] [address] [place] [id number] 30 Dec, 2011 [facility] [address] [id number] [address] [place] [address], [place] [address] 30 Dec, 2011 [facility] [address] [id number] [address] [place] [address], [place] [address] 30 Dec, 2011 [facility] [address] [id number] [address] [place] [id number] 26 Dec2011 [facility] [address] [id number] [address] [place] [address], [place] [address] Dec, [facility] [address] [id number] [address] [place] [address], [place] [address] Oct, [facility] [address] [id number] [address] [place] [address], [place] [address] Oct, [facility] [address] [id number] [address] [place] [address], [place] [address] Aug, [facility] [address] [id number] [address] [place] [address], [place] [address] Aug, [facility] [address] [id number] [address] [place] [address], [place] [address] July, [facility] [address] [id number] [address] [place] [address], [place] [address] Jun, [facility] [address] [id number] [address] [place] [address], [place] [address] Jun, [facility] [address] [id number] [address] [place] [address], [place] [address] May, [facility] [address] [id number] [address] [place] [address], [place] [address] Apr, [facility] [address] [id number] [address] [place] [address], [place] [address] Apr, [facility] [address] [id number] [address] [place] [address], [place] [address] Mar, [facility] [address] [id number] [address] [place] [address], [place] [address] Mar, [facility] [address] [id number] [address] [place] [address], [place] [address] Feb, [facility] [address] [id number] [address] [place] [address], [place] [address] 15 Feb, 2011 [facility] [address] [id number] [address] [place] [id number] Feb, [facility] [address] [id number] [place] [phone] Feb, [facility] [address] [id number] [address] [place] [phone] Jan, [facility] [address] [id number] [address] [place] [phone] Dec, [facility] [address] [id number] [address] [place] [phone] Feb, [facility] [address] [id number] [address] [place] [id number] Feb, [facility] [address] [id number] [address] [place] [id number] Feb, [facility] [address] [id number] [address] [place] [phone] Feb, [facility] [address] [id number] [address] [place] [phone] 15 Dec, 2009 [facility] [address] [id number] [address] [place] [phone] Dec, [facility] [address] [id number] [address] [place] [phone] Oct, [facility] [address] [id number] [address] [place] [phone] Jun, [facility] [address] [id number] [address] [place] [phone] Feb, [facility] [address] [id number] [address] [place] [id number] Feb, [facility] [address] [id number] [address] [place] [id number] Feb, [facility] [address] [id number] [address] [place] [phone] Dec, IMMUNIZATIONS No Known Immunizations SOCIAL HISTORY Never Assessed REASON FOR VISIT PLAN OF CARE VITAL SIGNS MEDICATIONS Unknown Medications RESULTS No Results PROCEDURES Procedure Date Ordered Result Body Site PROTHROMBIN TIME Dec 28, 2013 INSTRUCTIONS MEDICATIONS ADMINISTERED No Known Medications MEDICAL (GENERAL) HISTORY Type Description Date Medical History obesity Medical History Hematologic disorder factor clotting pro [place] Medical History DVT's Medical History Torn Rotator Cuff, repaired 09/23/17 Surgical History Lap Band 10/2012 Surgical History section 1985, 1987 Surgical History cholecystectomy Surgical History [place] Filter 06/2009 Surgical History Left leg exploratory surgery r/t clot 19 Surgical History left shoulder surgery 09/14/17 Surgical History lap band removed 12/2017 Surgical History gastic sleeve 01/2018 Surgical History Back surgery 2018 Hospitalization History Ruptured Ovarian Cyst with abd bleed ing 11/2009 Hospitalization History Broken Back 06/2018
--- OUTSIDE RECORDS SUMMARY | 2019-10-19 12:35 | XMS REPORT ---
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 Name Role Phone ASHLEY BRUNO Unavailable PROBLEMS Type Condition ICD9-CM Code [id number] Code Onset Dates Condition S tatus SNOMED Code Problem Thyroid follicular adenoma D34 Act phylicia 687018302 Problem History of DVT (deep vein thrombosis) Z86.718 Active 258793687 Problem Factor V Leiden D68.51 Active 3070 26963 Problem meterman (current) use of anticoagulants Z79.01 Active 565767956 Problem Hypertriglyceridemia E78.1 Active 315980682 Problem 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 Active 164475422 Problem Pelvic pain R10.2 Active 26164507 Problem Peripheral edema R60.9 Active 271 995085 Problem Moderate episode of recurrent major depressive disorder F33.1 Active 972082150 Problem Presence of IVC filter Z95.828 Active 434555515 Problem Vitamin D deficiency E55.9 Active 96892705 Problem Generalized anxiety disorder F41.1 A ctive 386904195 Problem Excessive daytime sleepiness G47.19 A ctive 226905242227 Problem Gastroesophageal reflux disease, esophagitis pre sence not specified K21.9 Active 879919516 Problem Thyroid nodule E04.1 Active 19934 5005 Problem Morbid obesity E66.01 Active 08980 6002 ALLERGIES No Information ENCOUNTERS Encounter Location Date Diagnosis [facility] [address] [facility] [id number] [address] [place] [address] Sep, Hypertriglyceridemia E78.1 a nd Vitamin D deficiency E55.9 [facility] [address] [facility] [id number] [address] [place] [address] Sep, [facility] [address] [facility] [id number] [address] [place] [address] Sep, Morbid obesity E66.01 ; Mode rate episode of recurrent major depressive disorder F33.1 ; Hypertriglyceridemia E78.1 and Vitamin D deficiency E55.9 [facility] [address] [facility] [id number] [address] [place] [address] Aug, [facility] [address] [facility] [id number] [address] [place] [address] July, [facility] [address] [facility] [id number] [place] [address] July, [facility] [address] [id number] [address] [place] [address] Jun, [facility] [address] [place] [id number] [place] [address] Jun, [facility] [address] [place] [id number] [place] [address] Jun, Closed compression fracture of L3 lumbar vertebra with routine healing, subsequent encounter S32.030D and Drug-induced constipation K59.03 [facility] [address] [facility] [id number] [address] [place] [address] Jun, [facility] [address] [place] [id number] [place] [address] Jun, [facility] [address] [place] [id number] [address] [place] [address] Apr, [facility] [address] [facility] [id number] [address] [place] [address] Apr, Morbid obesity E66.01 [facility] [address] [facility] [id number] [address] [place] [address] Apr, Morbid obesity E66.01 ; Hype rtriglyceridemia E78.1 ; Gastroesophageal reflux disease, esophagitis presence not specified K21.9 and Joint pain M25.50 [facility] [address] [facility] [id number] [address] [place] [address] Feb, [facility] [address] [place] [id number] [address] [place] [address] 06 Feb, 2018 [facility] [address] [facility] [id number] [address] [place] [address] Jan, Acute bacterial conjunctivit is H10.30 [facility] [address] [facility] [id number] [address] [place] [address] 08 Dec, 2017 [facility] [address] [address] 04 Dec, 2017 [facility] [address] [facility] [id number] [place] [address] 17 Nov, 2017 [facility] [address] [address] 07 Nov, 2017 Obstructive sleep apnea G47. 33 ; Morbid obesity E66.01 and Gastroesophageal reflux disease, esophagitis presence not specified K21.9 [facility] [address] [place] [id number] [address] [place] [id number] 06 Nov, 2017 Encounter for examination of eyes and vision without abnormal findings Z01.00 [facility] [address] [place] [id number] [address] [place] [address] 31 Oct, 2017 Thyroid nodule E04.1 and Scr eening for breast cancer Z12.31 [facility] [address] [place] [id number] [address] [place] [address] 23 Oct, 2017 History of DVT (deep vein th rombosis) Z86.718 ; Thyroid nodule E04.1 and Gastroesophageal reflux disease, esophagitis presence not specified K21.9 [facility] [address] [facility] [id number] [address] [place] [address] Oct, [facility] [address] [place] [id number] [place] [address] Sep, [facility] [address] [place] [id number] [address] [place] [address] Aug, [facility] [address] [address] Aug, [place] [address] [place] [id number] [address] [place] [address] Aug, Acute pain of left shoulder M25.512 and Thyroid nodule E04.1 [place] [address] [place] [id number] [address] [place] [address] July, Superior glenoid labrum lesi on of left shoulder, subsequent encounter S43.432D [place] [address] [place] [id number] [address] [place] [address] Jun, History of DVT (deep vein th rombosis) Z86.718 [place] [address] [place] [id number] [place] [address] Jun, History of DVT (deep vein th rombosis) Z86.718 [place] [address] [place] [id number] [address] [place] [address] Jun, Impingement syndrome, should er, left M75.42 [place] [address] [place] [id number] [address] [place] [address] May, Subacromial bursitis of left shoulder joint M75.52 [place] [address] [place] [id number] [address] [place] [address] May, [place] [address] [place] [id number] [address] [place] [address] May, Hypertriglyceridemia E78.1 ; care home (current) use of anticoagulants Z79.01 and Excessive daytime sleepiness G47.19 [place] [address] [facility] [id number] [address] [place] [address] May, History of DVT (deep vein th rombosis) Z86.718 ; Generalized anxiety disorder F41.1 ; Hypertriglyceridemia E78.1 ; meterman (current) use of anticoagulants Z79.01 ; Subacromial bursitis of left shoulder joint M75.52 and Excessive daytime sleepiness G47.19 [place] [address] [id number] [address] [place] [address] May, [facility] [address] [id number] [address] [place] [address] May, care home (current) use of a nticoagulants Z79.01 [facility] [address] [id number] [address] [place] [address] Apr, meterman (current) use of a nticoagulants Z79.01 [facility] [address] [id number] [address] [place] [address] Apr, meterman (current) use of a nticoagulants Z79.01 [facility] [address] [id number] [address] [place] [address] Apr, meterman (current) use of a nticoagulants Z79.01 [facility] [address] [id number] [address] [place] [address] Apr, [facility] [address] [id number] [address] [place] [address] Apr, meterman (current) use of a nticoagulants Z79.01 [facility] [address] [id number] [address] [place] [address] 13 Apr, 2017 meterman (current) use of a nticoagulants Z79.01 [facility] [address] [id number] [address] [place] [address] Apr, care home (current) use of a nticoagulants Z79.01 [facility] [address] [id number] [address] [place] [address] Apr, care home (current) use of a nticoagulants Z79.01 [facility] [address] [id number] [address] [place] [address] 07 Apr, 2017 care home (current) use of a nticoagulants Z79.01 [facility] [address] [id number] [address] [place] [address] Apr, care home (current) use of a nticoagulants Z79.01 [facility] [address] [id number] [address] [place] [address] Mar, meterman (current) use of a nticoagulants Z79.01 [facility] [address] [facility] [id number] [address] [place] [address] Mar, [facility] [address] [id number] [address] [place] [address] Mar, care home (current) use of a nticoagulants Z79.01 [facility] [id number] [place] [address] [id number] Jan, Dental examination Z01.20 [facility] [address] [id number] [place] [address] [id number] Jan, [facility] [address] [facility] [id number] [address] [place] [address] Jan, care home (current) use of a nticoagulants Z79.01 [facility] [address] [facility] [id number] [address] [place] [address] Jan, History of DVT (deep vein th rombosis) Z86.718 [place] [address] [facility] [id number] [address] [place] [address] Jan, Generalized anxiety disorder F41.1 and Peripheral edema R60.9 [facility] [address] [id number] [address] [place] [address] Nov, History of DVT (deep vein th rombosis) Z86.718 [facility] [address] [facility] [id number] [address] [place] [address] Nov, meterman (current) use of a nticoagulants Z79.01 [facility] [address] [facility] [id number] [address] [place] [address] Nov, Acute non-recurrent maxillar y sinusitis J01.00 [place] [address] [facility] [id number] [address] [place] [address] Oct, care home (current) use of a nticoagulants Z79.01 [place] [address] [facility] [id number] [address] [place] [address] Oct, Personal history of venous t hrombosis and embolism Z86.718 [place] [address] [facility] [id number] [address] [place] [address] Sep, [place] [address] [facility] [id number] [place] [address] Sep, Personal history of venous t hrombosis and embolism Z86.718 [place] [address] [place] [id number] [address] [place] [address] Sep, meterman (current) use of a nticoagulants Z79.01 [place] [address] [place] [id number] [address] [place] [address] Sep, care home (current) use of a nticoagulants Z79.01 [place] [address] [place] [id number] [address] [place] [address] Sep, Generalized anxiety disorder F41.1 and History of DVT (deep vein thrombosis) Z86.718 [place] [address] [place] [id number] [address] [place] [address] Aug, History of DVT (deep vein th rombosis) Z86.718 ; Generalized anxiety disorder F41.1 ; meterman (current) use of anticoagulants Z79.01 ; Pelvic pain R10.2 ; Hypertriglyceridemia E78.1 ; Excessive daytime sleepiness G47.19 ; Colon cancer screening Z12.11 ; Screening for breast cancer Z12.39 ; Peripheral edema R60.9 and Gastroesophageal reflux disease, esophagitis presence not specified K21.9 [place] [address] [place] [id number] [address] [place] [address] Aug, [facility] [address] [id number] [address] [place] [address] July, [facility] [address] [facility] [id number] [address] [place] [address] July, History of DVT (deep vein th rombosis) Z86.718 [facility] [address] [facility] [id number] [address] [place] [address] Jun, Generalized anxiety disorder F41.1 [facility] [address] [id number] [address] [place] [address] Jun, History of DVT (deep vein th rombosis) Z86.718 [place] [address] [facility] [id number] [address] [place] [address] Jun, History of DVT (deep vein th rombosis) Z86.718 [place] [address] [facility] [id number] [address] [place] [address] Jun, History of DVT (deep vein th rombosis) Z86.718 [place] [address] [id number] [address] [place] [address] Jun, History of DVT (deep vein th rombosis) Z86.718 [place] [address] [facility] [id number] [address] [place] [address] May, History of DVT (deep vein th rombosis) Z86.718 [place] [address] [facility] [id number] [address] [place] [address] May, care home (current) use of a nticoagulants Z79.01 [place] [address] [facility] [id number] [address] [place] [address] May, care home (current) use of a nticoagulants Z79.01 [place] [address] [facility] [id number] [address] [place] [address] May, History of DVT (deep vein th rombosis) Z86.718 [facility] [address] [id number] [address] [place] [address] 27 Apr, 2016 Bacterial conjunctivitis of left eye H10.9 and H/O motion sickness Z87.898 [facility] [address] [id number] [address] [place] [address] 24 Apr, 2016 History of DVT (deep vein th rombosis) Z86.718 [facility] [address] [id number] [address] [place] [address] Apr, History of DVT (deep vein th rombosis) Z86.718 [facility] [address] [id number] [address] [place] [address] 15 Apr, 2016 History of DVT (deep vein th rombosis) Z86.718 [facility] [address] [facility] [id number] [address] [place] [address] 14 Apr, 2016 meterman (current) use of a nticoagulants Z79.01 [facility] [address] [id number] [address] [place] [address] Mar, [facility] [address] [id number] [address] [place] [address] Mar, care home (current) use of a nticoagulants Z79.01 [facility] [address] [id number] [address] [place] [address] Mar, Hypertriglyceridemia E78.1 a nd care home (current) use of anticoagulants Z79.01 [facility] [address] [id number] [address] [place] [address] Feb, meterman (current) use of a nticoagulants Z79.01 [facility] [address] [id number] [address] [place] [address] Feb, care home (current) use of a nticoagulants Z79.01 [facility] [address] [id number] [address] [place] [address] Feb, care home (current) use of a nticoagulants Z79.01 [place] [address] [id number] [address] [place] [address] Dec, [facility] [address] [id number] [address] [place] [address] Nov, [place] [address] [id number] [address] [place] [address] Nov, History of DVT (deep vein th rombosis) Z86.718 ; Tremulousness R25.1 ; Generalized anxiety disorder F41.1 ; Peripheral edema R60.9 and Hypertriglyceridemia E78.1 [place] [address] [id number] [address] [place] [address] Oct, History of DVT (deep vein th rombosis) Z86.718 [place] [address] [id number] [address] [place] [address] Oct, [place] [address] [id number] [address] [place] [address] Sep, History of DVT (deep vein th rombosis) Z86.718 [place] [address] [id number] [address] [place] [address] Sep, care home (current) use of a nticoagulants Z79.01 [place] [address] [id number] [address] [place] [address] July, [place] [address] [id number] [address] [place] [address] July, meterman (current) use of a nticoagulants Z79.01 [place] [address] [id number] [address] [place] [address] July, care home (current) use of a nticoagulants Z79.01 [place] [address] [id number] [address] [place] [address] Jun, care home (current) use of a nticoagulants Z79.01 [facility] [place] [address] [facility] [id number] [address] [place] [address] Jun, Coccyx pain M53.3 ; Encounte r for therapeutic drug level monitoring Z51.81 and care home current use 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.01 [place] [address] [facility] [id number] [address] [place] [address] May, Abnormal mammogram R92.8 [facility] [place] [address] [facility] [id number] [address] [place] [address] May, [facility] [place] [address] [facility] [id number] [address] [place] [address] May, Acute vaginitis N76.0 and En counter for other screening for malignant neoplasm of breast Z12.39 [place] [address] [facility] [id number] [address] [place] [address] Apr, [place] [address] [facility] [id number] [address] [place] [address] Apr, [place] [address] [facility] [id number] [address] [place] [address] Apr, Peripheral edema R60.9 [place] [address] [facility] [id number] [address] [place] [address] Apr, care home (current) use of a nticoagulants Z79.01 [place] [address] [id number] [address] [place] [address] Apr, Peripheral edema R60.9 and L jose martin term (current) 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 Z79.01 [place] [address] [facility] [id number] [address] [place] [address] Apr, meterman (current) use of a nticoagulants Z79.01 [place] [address] [facility] [id number] [address] [place] [address] Apr, [facility] [address] [id number] [address] [place] [address] Apr, meterman (current) use of a nticoagulants Z79.01 [facility] [address] [id number] [address] [place] [address] Apr, Peripheral edema R60.9 [place] [address] [id number] [address] [place] [address] Mar, meterman (current) use of a nticoagulants Z79.01 [place] [address] [id number] [address] [place] [address] Mar, meterman (current) use of a nticoagulants Z79.01 and Hypertriglyceridemia E78.1 [place] [address] [id number] [address] [place] [address] Mar, meterman (current) use of a nticoagulants Z79.01 [place] [address] [id number] [address] [place] [address] Mar, meterman (current) use of a nticoagulants Z79.01 [place] [address] [id number] [address] [place] [address] Mar, [facility] [address] [id number] [address] [place] [address] Mar, meterman (current) use of a nticoagulants Z79.01 ; Hypertriglyceridemia E78.1 ; Personal history of venous thrombosis and embolism Z86.718 and Lump R22.9 [place] [address] [id number] [address] [place] [address] Mar, Personal history of venous t hrombosis and embolism Z86.718 [place] [address] [id number] [address] [place] [address] Mar, Personal history of venous t hrombosis and embolism Z86.718 [facility] [address] [id number] [address] [place] [address] Mar, [facility] [address] [id number] [address] [place] [address] Dec, Personal history of venous t hrombosis and embolism Z86.718 [facility] [address] [id number] [address] [place] [address] Dec, Personal history of venous t hrombosis and embolism V12.51 [facility] [address] [id number] [address] [place] [address] Nov, Personal history of venous t hrombosis and embolism V12.51 [facility] [address] [id number] [address] [place] [id number] Nov, Personal history of venous t hrombosis and embolism V12.51 [facility] [address] [id number] [address] [place] [id number] Nov, Personal history of venous t hrombosis and embolism V12.51 [facility] [address] [id number] [address] [place] [id number] Nov, Personal history of venous t hrombosis and embolism V12.51 [facility] [address] [id number] [address] [place] [id number] Nov, [facility] [address] [id number] [address] [place] [id number] Oct, Dysuria 788.1 [facility] [address] [id number] [address] [place] [id number] Oct, Personal history of venous t hrombosis and embolism V12.51 [facility] [address] [id number] [address] [place] [id number] Oct, [facility] [address] [id number] [address] [place] [phone] Oct, Personal history of venous t hrombosis and embolism V12.51 [facility] [address] [id number] [address] [place] [id number] Sep, Personal history of venous t hrombosis and embolism V12.51 [facility] [address] [id number] [address] [place] [id number] Sep, Personal history of venous t hrombosis and embolism V12.51 [facility] [address] [id number] [address] [place] [id number] Aug, Personal history of venous t hrombosis and embolism V12.51 [facility] [address] [id number] [address] [place] [id number] Aug, Personal history of venous t hrombosis and embolism V12.51 [facility] [address] [id number] [address] [place] [id number] Aug, Personal history of venous t hrombosis and embolism V12.51 [facility] [address] [id number] [address] [place] [id number] July, Generalized anxiety disorder 300.02 ; Abdominal pain, left lower quadrant 789.04 and Personal history of venous thrombosis and embolism V12.51 [facility] [facility] [address] [id number] [address] [place] [address] Jun, [facility] [address] [id number] [address] [place] [address] Jun, [facility] [address] [id number] [address] [place] [address] May, [facility] [address] [id number] [address] [place] [address] May, [facility] [address] [id number] [address] [place] [address] May, [facility] [address] [id number] [address] [place] [address] May, [facility] [address] [id number] [address] [place] [address] May, [facility] [address] [id number] [address] [place] [address], [place] [address] May, [facility] [address] [id number] [address] [place] [address], [place] [address] May, [facility] [address] [id number] [address] [place] [address], [place] [address] May, [facility] [address] [id number] [address] [place] [address], [place] [address] Apr, [facility] [address] [id number] [address] [place] [address], [place] [address] Apr, [facility] [address] [id number] [address] [place] [address], [place] [address] Apr, [facility] [address] [id number] [address] [place] [address], [place] [address] Apr, [facility] [address] [id number] [address] [place] [address], [place] [address] Apr, [facility] [address] [id number] [address] [place] [address], [place] [address] Mar, [facility] [address] [id number] [address] [place] [address], [place] [address] Mar, [facility] [address] [id number] [address] [place] [address], [place] [address] Mar, [facility] [address] [id number] [address] [place] [address], [place] [address] Mar, [facility] [address] [id number] [address] [place] [address], [place] [address] Mar, [facility] [address] [id number] [address] [place] [address], [place] [address] Mar, [facility] [address] [id number] [address] [place] [address], [place] [address] Feb, [facility] [address] [id number] [address] [place] [address], [place] [address] Feb, [facility] [address] [id number] [address] [place] [address], [place] [address] Feb, [facility] [address] [id number] [address] [place] [address], [place] [address] Feb, [facility] [address] [id number] [address] [place] [address], [place] [address] Feb, [facility] [address] [id number] [address] [place] [address], [place] [address] Feb, [facility] [address] [id number] [address] [place] [address], [place] [address] Feb, [facility] [address] [id number] [address] [place] [address], [place] [address] Feb, [facility] [address] [id number] [address] [place] [address], [place] [address] Feb, [facility] [address] [id number] [address] [place] [address], [place] [address] Feb, [facility] [address] [id number] [address] [place] [address], [place] [address] Jan, [facility] [address] [id number] [address] [place] [address], [place] [address] Jan, [facility] [address] [id number] [address] [place] [address], [place] [address] Jan, [facility] [address] [id number] [address] [place] [address], [place] [address] Jan, [facility] [address] [id number] [address] [place] [address], [place] [address] Jan, [facility] [address] [id number] [address] [place] [address], [place] [address] Jan, [facility] [address] [id number] [address] [place] [address], [place] [address] Jan, [facility] [address] [id number] [address] [place] [address], [place] [address] Jan, [facility] [address] [id number] [address] [place] [address], [place] [address] Jan, [facility] [address] [id number] [address] [place] [address], [place] [address] Jan, [facility] [address] [id number] [address] [place] [address], [place] [address] Dec, [facility] [address] [id number] [address] [place] [address], [place] [address] Dec, [facility] [address] [id number] [address] [place] [address], [place] [address] Dec, [facility] [address] [id number] [address] [place] [address], [place] [address] Dec, [facility] [address] [id number] [address] [place] [address], [place] [address] Dec, [facility] [address] [id number] [address] [place] [address], [place] [address] Dec, [facility] [address] [id number] [address] [place] [address], [place] [address] Dec, [facility] [address] [id number] [address] [place] [address], [place] [address] Dec, [facility] [address] [id number] [address] [place] [address] Dec, [facility] [address] [id number] [address] [place] [address], [place] [address] Dec, [facility] [address] [id number] [address] [place] [address], [place] [address] Dec, [facility] [address] [id number] [address] [place] [address], [place] [address] Dec, [facility] [address] [id number] [address] [place] [address], [place] [address] Dec, [facility] [address] [id number] [address] [place] [address], [place] [address] Dec, [facility] [address] [id number] [address] [place] [address], [place] [address] Dec, [facility] [address] [id number] [address] [place] [address], [place] [address] 30 Nov, 2013 [facility] [address] [id number] [address] [place] [address], [place] [address] 30 Nov, 2013 [facility] [address] [id number] [address] [place] [address], [place] [address] 26 Nov, 2013 [facility] [address] [id number] [address] [place] [address], [place] [address] 26 Nov, 2013 [facility] [address] [id number] [address] [place] [address], [place] [address] 24 Nov, 2013 [facility] [address] [id number] [address] [place] [address], [place] [address] 24 Nov, 2013 [facility] [address] [id number] [address] [place] [address], [place] [address] 23 Nov, 2013 [facility] [address] [id number] [address] [place] [address], [place] [address] 23 Nov, 2013 [facility] [address] [id number] [address] [place] [address], [place] [address] 18 Nov, 2013 [facility] [address] [id number] [address] [place] [address], [place] [address] 18 Sep, 2013 [facility] [address] [id number] [address] [place] [address], [place] [address] 17 Nov, 2013 [facility] [address] [id number] [address] [place] [address], [place] [address] 17 Nov, 2013 [facility] [address] [id number] [address] [place] [address], [place] [address] 11 Nov, 2013 [facility] [address] [id number] [facility] [address] 11 Nov, 2013 [facility] [address] [id number] [facility] [address] Nov, 2013 [facility] [address] [id number] [address] [place] [address], [place] [address] 10 Nov, 2013 [facility] [address] [id number] [address] [place] [address], [place] [address] Nov, 2013 [facility] [address] [id number] [address] [place] [address], [place] [address] Nov, [facility] [address] [id number] [address] [place] [address], [place] [address] Sep, [facility] [address] [id number] [address] [place] [address], [place] [address] Sep, [facility] [address] [id number] [address] [place] [address], [place] [address] Sep, [facility] [address] [id number] [address] [place] [address], [place] [address] Sep, [facility] [address] [id number] [address] [place] [address], [place] [address] Sep, [facility] [address] [id number] [address] [place] [address], [place] [address] Sep, [facility] [address] [id number] [address] [place] [address], [place] [address] Aug, [facility] [address] [id number] [address] [place] [address], [place] [address] Aug, [facility] [address] [id number] [address] [place] [address], [place] [address] Aug, [facility] [address] [id number] [address] [place] [address], [place] [address] Aug, [facility] [address] [id number] [address] [place] [address], [place] [address] 24 Aug, 2013 [facility] [address] [id number] [address] [place] [address], [place] [address] Aug, [facility] [address] [id number] [address] [place] [address], [place] [address] Aug, [facility] [address] [id number] [address] [place] [address], [place] [address] Aug, [facility] [address] [id number] [address] [place] [address], [place] [address] Aug, [facility] [address] [id number] [address] [place] [address], [place] [address] Aug, [facility] [address] [id number] [address] [place] [address], [place] [address] Aug, [facility] [address] [id number] [address] [place] [address], [place] [address] July, [facility] [address] [id number] [address] [place] [address], [place] [address] July, [facility] [address] [id number] [address] [place] [address], [place] [address] Jun, [facility] [address] [id number] [address] [place] [address], [place] [address] Jun, [facility] [address] [id number] [address] [place] [address], [place] [address] Jun, [facility] [address] [id number] [address] [place] [address], [place] [address] Jun, [facility] [address] [id number] [address] [place] [address], [place] [address] Jun, [facility] [address] [id number] [address] [place] [address], [place] [address] Jun, [facility] [address] [id number] [address] [place] [address], [place] [address] 15 Jun, 2013 [facility] [address] [id number] [facility] [address] 15 Jun, 2013 [facility] [address] [id number] [facility] [address] 11 Jun, 2013 [facility] [address] [id number] [facility] [address] Jun, [facility] [address] [id number] [facility] [address] Jun, [facility] [address] [id number] [facility] [address] Jun, [facility] [address] [id number] [facility] [address] May, [facility] [address] [id number] [address] [place] [address], [place] [address] May, [facility] [address] [id number] [address] [place] [address], [place] [address] May, [facility] [address] [id number] [address] [place] [address], [place] [address] May, [facility] [address] [id number] [address] [place] [address], [place] [address] May, [facility] [address] [id number] [address] [place] [address], [place] [address] May, [facility] [address] [id number] [address] [place] [address], [place] [address] May, [facility] [address] [id number] [address] [place] [address], [place] [address] 06 May, 2013 [facility] [address] [id number] [address] [place] [address], [place] [address] May, [facility] [address] [id number] [address] [place] [address], [place] [address] May, [facility] [address] [id number] [address] [place] [address], [place] [address] May, [facility] [address] [id number] [address] [place] [address], [place] [address] May, [facility] [address] [id number] [address] [place] [address], [place] [address] Apr, [facility] [address] [id number] [address] [place] [address], [place] [address] Apr, [facility] [address] [id number] [address] [place] [address], [place] [address] Apr, [facility] [address] [id number] [address] [place] [address], [place] [address] Apr, [facility] [address] [id number] [address] [place] [address], [place] [address] Apr, [facility] [address] [id number] [address] [place] [address], [place] [address] Apr, [facility] [address] [id number] [address] [place] [address], [place] [address] Apr, [facility] [address] [id number] [address] [place] [address], [place] [address] Apr, [facility] [address] [id number] [address] [place] [address], [place] [address] Apr, [facility] [address] [id number] [address] [place] [address], [place] [address] Apr, [facility] [address] [id number] [address] [place] [address], [place] [address] Apr, [facility] [address] [id number] [address] [place] [address], [place] [address] Apr, [facility] [address] [id number] [address] [place] [address], [place] [address] Apr, [facility] [address] [id number] [address] [place] [address], [place] [address] Apr, [facility] [address] [id number] [address] [place] [address], [place] [address] Apr, [facility] [address] [id number] [address] [place] [address], [place] [address] Apr, [facility] [address] [id number] [address] [place] [address], [place] [address] Apr, [facility] [address] [id number] [address] [place] [address], [place] [address] Jan, [facility] [address] [id number] [address] [place] [address], [place] [address] Jan, [facility] [address] [id number] [address] [place] [address], [place] [address] Jan, [facility] [address] [id number] [address] [place] [address], [place] [address] Jan, [facility] [address] [id number] [address] [place] [address], [place] [address] Jan, [facility] [address] [id number] [address] [place] [address], [place] [address] Jan, [facility] [address] [id number] [address] [place] [address], [place] [address] Jan, [facility] [address] [id number] [address] [place] [address], [place] [address] Dec, [facility] [address] [id number] [address] [place] [address] Dec, [facility] [address] [id number] [address] [place] [address], [place] [address] Dec, [facility] [address] [id number] [address] [place] [address], [place] [address] Nov, [facility] [address] [id number] [address] [place] [address], [place] [address] Nov, [facility] [address] [id number] [address] [place] [address] [place] [address] 05 Nov, 2012 [facility] [address] [id number] [address] [place] [address], [place] [address] Nov, [facility] [address] [id number] [address] [place] [address], [place] [address] Oct, [facility] [address] [id number] [address] [place] [address], [place] [address] Oct, [facility] [address] [id number] [address] [place] [address], [place] [address] Oct, [facility] [address] [id number] [address] [place] [address], [place] [address] Oct, [facility] [address] [id number] [address] [place] [address], [place] [address] Oct, [facility] [address] [id number] [address] [place] [address], [place] [address] Sep, [facility] [address] [id number] [address] [place] [address], [place] [address] Sep, [facility] [address] [id number] [address] [place] [address], [place] [address] Sep, [facility] [address] [id number] [address] [place] [address], [place] [address] Sep, [facility] [address] [id number] [address] [place] [address], [place] [address] Sep, [facility] [address] [id number] [address] [place] [address], [place] [address] Sep, [facility] [address] [id number] [address] [place] [address], [place] [address] Sep, [facility] [address] [id number] [address] [place] [address], [place] [address] Aug, [facility] [address] [id number] [address] [place] [address], [place] [address] Aug, [facility] [address] [id number] [address] [place] [address], [place] [address] July, [facility] [address] [id number] [address] [place] [address], [place] [address] Jun, [facility] [address] [id number] [address] [place] [address], [place] [address] Jun, [facility] [address] [id number] [address] [place] [address], [place] [address] Jun, [facility] [address] [id number] [address] [place] [address], [place] [address] Apr, [facility] [address] [id number] [address] [place] [address], [place] [address] Apr, [facility] [address] [id number] [address] [place] [address], [place] [address] Apr, [facility] [address] [id number] [address] [place] [address], [place] [address] Mar, [facility] [address] [id number] [address] [place] [address], [place] [address] Mar, [facility] [address] [id number] [address] [place] [address], [place] [address] Mar, [facility] [address] [id number] [address] [place] [address], [place] [address] Mar, [facility] [address] [id number] [address] [place] [address], [place] [address] Mar, [facility] [address] [id number] [address] [place] [address], [place] [address] Feb, [facility] [address] [id number] [address] [place] [address], [place] [address] Feb, [facility] [address] [id number] [address] [place] [address], [place] [address] Jan, [facility] [address] [id number] [address] [place] [address] Jan, [facility] [address] [id number] [address] [place] [address], [place] [address] 13 Jan, 2012 [facility] [address] [id number] [address] [place] [address] Jan, [facility] [address] [id number] [address] [place] [address] 07 Jan, 2012 [facility] [address] [id number] [address] [place] [address] 07 Jan, 2012 [facility] [address] [id number] [address] [place] [address], [place] [address] Jan, [facility] [address] [id number] [address] [place] [address] 31 Dec, 2011 [facility] [address] [id number] [address] [place] [address] 31 Dec, 2011 [facility] [address] [id number] [address] [place] [address] 30 Dec, 2011 [facility] [address] [id number] [address] [place] [address] 30 Dec, 2011 [facility] [address] [id number] [address] [place] [address] 30 Dec, 2011 [facility] [address] [id number] [address] [place] [address] 30 Dec, 2011 [facility] [address] [id number] [address] [place] [address] 30 Dec, 2011 [facility] [address] [id number] [address] [place] [address], [place] [address] 30 Dec, 2011 [facility] [address] [id number] [address] [place] [address] Dec, [facility] [address] [id number] [address] [place] [address] Dec, [facility] [address] [id number] [address] [place] [address], [place] [address] Oct, [facility] [address] [id number] [address] [place] [address], [place] [address] Oct, [facility] [address] [id number] [address] [place] [address], [place] [address] Aug, [facility] [address] [id number] [address] [place] [address], [place] [address] Aug, [facility] [address] [id number] [address] [place] [address], [place] [address] July, [facility] [address] [id number] [address] [place] [address], [place] [address] Jun, [facility] [address] [id number] [address] [place] [address], [place] [address] Jun, [facility] [address] [id number] [address] [place] [address], [place] [address] May, [facility] [address] [id number] [address] [place] [address], [place] [address] Apr, [facility] [address] [id number] [address] [place] [address], [place] [address] Apr, [facility] [address] [id number] [address] [place] [address], [place] [address] Mar, [facility] [address] [id number] [address] [place] [address], [place] [address] Mar, [facility] [address] [id number] [address] [place] [address], [place] [address] Feb, [facility] [address] [id number] [address] [place] [address], [place] [address] 15 Feb, 2011 [facility] [address] [id number] [address] [place] [address], [place] [address] Feb, [facility] [address] [id number] [address] [place] [address], [place] [address] Feb, [facility] [address] [id number] [address] [place] [address] Jan, [facility] [address] [id number] [address] [place] [id number] Dec, [facility] [address] [id number] [address] [place] [phone] Feb, [facility] [address] [id number] [place] [id number] Feb, [facility] [address] [id number] [address] [place] [phone] Feb, [facility] [address] [id number] [place] [phone] Feb, [facility] [address] [id number] [place] [phone] Dec, [facility] [address] [id number] [address] [place] [phone] Dec, [facility] [address] [id number] [address] [place] [phone] Oct, [facility] [address] [id number] [address] [place] [id number] Jun, [facility] [address] [id number] [address] [place] [phone] Feb, [facility] [address] [id number] [address] [place] [phone] Feb, [facility] [address] [id number] [address] [place] [phone] Feb, [facility] [address] [id number] [address] [place] [phone] Dec, IMMUNIZATIONS No Known Immunizations SOCIAL HISTORY [...] 1985, 1987 Surgical History cholecystectomy Surgical History [place] Filter 06/2009 Surgical History Left leg exploratory surgery r/t clot Surgical History left shoulder surgery 09/14/17 Surgical History lap band removed 12/2017 Surgical History gastic sleeve 01/2018 Surgical History Back surgery 2018 Hospitalization History Ruptured Ovarian Cyst with abd bleed ing 11/2009 Hospitalization History Broken Back 06/2018
--- OUTSIDE RECORDS SUMMARY | 2019-10-19 12:36 | XMS REPORT ---
Author Author KIANAMary Jane Organization 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 Active 617848754 Problem Hypertriglyceridemia E78.1 Active 457118299 Problem 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 Active 565068080 Problem Pelvic pain R10.2 Active 91540669 Problem Peripheral edema R60.9 Active 271 487599 Problem Moderate episode of recurrent major depressive disorder F33.1 Active 910715830 Problem Presence of IVC filter Z95.828 Active 284819060 Problem Vitamin D deficiency E55.9 Active 08866107 Problem Generalized anxiety disorder F41.1 A ctive 690499434 Problem Excessive daytime sleepiness G47.19 A ctive 080924939567 Problem Gastroesophageal reflux disease, esophagitis pre sence not specified K21.9 Active 771005726 Problem Thyroid nodule E04.1 Active 31547 5005 Problem Morbid obesity E66.01 Active 48002 6002 ALLERGIES No Information ENCOUNTERS Encounter Location Date Diagnosis [facility] [address] [facility] [place] [id number] [address] [place] [address] Sep, Hypertriglyceridemia E78.1 a nd Vitamin D deficiency E55.9 [facility] [address] [facility] [place] [facility] [id number] [address] [place] [phone] Sep, [facility] [address] [facility] [place] [facility] [id number] [address] [place] [address] Sep, Morbid obesity E66.01 ; Mode rate episode of recurrent major depressive disorder F33.1 ; Hypertriglyceridemia E78.1 and Vitamin D deficiency E55.9 [facility] [address] [facility] [place] [facility]] [id number] [address] [place] [address] Aug, [facility] [address] [facility] [place]] [id number] [address] [place] [phone] July, [facility] [address] [facility] [place] [id number] [place] [address] July, [facility] [address] [id number] [address] [place] [address] Jun, [facility] [address] [place] [id number] [place] [phone] Jun, [facility] [address] [place] [id number] [place] [address] Jun, Closed compression fracture of L3 lumbar vertebra with routine healing, subsequent encounter S32.030D and Drug-induced constipation K59.03 [facility] [address] [facility] [place] [facility] [id number] [address] [place] [address] Jun, [facility] [address] [place] [id number] [place] [phone] Jun, [facility] [address] [place] [id number] [address] [place] [address] Apr, [facility] [address] [facility] [place] [facility] [id number] [address] [place] [address] Apr, Morbid obesity E66.01 [facility] [address] [facility] [place] [facility] [id number] [address] [place] [address] Apr, Morbid obesity E66.01 ; Hype rtriglyceridemia E78.1 ; Gastroesophageal reflux disease, esophagitis presence not specified K21.[address] [facility] [address] [facility] [place]] [id number] [address] [place] [address] Feb, [facility] [address] [place] [id number] [address] [place] [phone] 06 Feb, 2018 [facility] [address] [facility] [place] [id number] [address] [place] [phone] Jan, Acute bacterial conjunctivit is H10.30 [facility] [address] [facility] [place] [facility] [id number] [address] [place] [phone] 08 Dec, 2017 [facility] [address] [phone] 04 Dec, 2017 [facility] [address] [facility] [place] [facility] [id number] [place] [phone] 17 Nov, 2017 [facility] [address] [address] 07 Nov, 2017 Obstructive sleep apnea G47. 33 ; Morbid obesity E66.01 and Gastroesophageal reflux disease, esophagitis presence not specified K21.9 [facility] [address] [place] [address] [id number] [address] [place] [id number] 06 Nov, 2017 Encounter for examination of eyes and vision without abnormal findings Z01.00 [facility] [address] [place] [id number] [address] [place] [phone] 31 Oct, 2017 Thyroid nodule E04.1 and Scr eening for breast cancer Z12.31 [facility] [address] [place] [id number] [address] [place] [address] 23 Oct, 2017 History of DVT (deep vein th rombosis) Z86.718 ; Thyroid nodule E04.1 and Gastroesophageal reflux disease, esophagitis presence not specified K21.9 [facility] [address] [facility] [place] [facility] [id number] [address] [place] [address] Oct, [facility] [address] [place] [id number] [place] [phone] Sep, [facility] [address] [place] [id number] [address] [place] [phone] Aug, [facility] [address] [address] Aug, [place] [address] [place] [id number] [address] [place] [address] Aug, Acute pain of left shoulder M25.512 and Thyroid nodule E04.1 [place] [address] [place] [id number] [address] [place] [address] July, Superior glenoid labrum lesi on of left shoulder, subsequent encounter S43.432D [place] [address] [place] [id number] [address] [place] [address] Jun, History of DVT (deep vein th rombosis) Z86.718 [place] [address] [place] [id number] [place] [phone] Jun, History of DVT (deep vein th rombosis) Z86.718 [place] [address] [place] [id number] [address] [place] [address] Jun, Impingement syndrome, should er, left M75.42 [place] [address] [place] [id number] [address] [place] [address] May, Subacromial bursitis of left shoulder joint M75.52 [place] [address] [place] [id number] [address] [place] [address] May, [place] [address] [place] [id number] [address] [place] [address] May, Hypertriglyceridemia E78.1 ; [facility] (current) use of anticoagulants Z79.01 and Excessive daytime sleepiness G47.19 [place] [address] [facility] [place] [facility] [id number] [address] [place] [address] May, History of DVT (deep vein th rombosis) Z86.718 ; Generalized anxiety disorder F41.1 ; Hypertriglyceridemia E78.1 ; 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 [address] [id number] [address] [place] [address] May, [facility] (current) use of a nticoagulants Z79.01 [facility] [address] [id number] [address] [place] [address] Apr, 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 [facility] [address] [id number] [address] [place] [address] Apr, 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 [facility] [address] [id number] [address] [place] [address] Apr, 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 [facility] [address] [id number] [address] [place] [address] Apr, [facility] [address] [id number] [address] [place] [address] Apr, 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 [facility] [address] [id number] [address] [place] [phone] 13 Apr, 2017 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 [facility] [address] [id number] [address] [place] [address] Apr, [facility] (current) use of a nticoagulants Z79.01 [facility] [address] [id number] [address] [place] [address] Apr, [facility] (current) use of a nticoagulants Z79.01 [facility] [address] [id number] [address] [place] [phone] 07 Apr, 2017 [facility] (current) use of a nticoagulants Z79.01 [facility] [address] [id number] [address] [place] [address] Apr, [facility] (current) use of a nticoagulants Z79.01 [facility] [address] [id number] [address] [place] [address] Mar, 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 [facility] [address] [facility] [place] [facility] [id number] [address] [place] [phone] Mar, [facility] [address] [id number] [address] [place] [address] Mar, [facility] (current) use of a nticoagulants Z79.01 [facility] [address] [id number] [place] [address] [id number] Jan, Dental examination Z01.20 [facility] [address] [id number] [place] [id number] Jan, [facility] [address] [facility] [place] [facility] [id number] [address] [place] [address] Jan, [facility] (current) use of a nticoagulants Z79.01 [facility] [address] [facility] [place] [facility] [id number] [address] [place] [address] Jan, History of DVT (deep vein th rombosis) Z86.718 [place] [address] [facility] [place] [facility] [id number] [address] [place] [address] Jan, Generalized anxiety disorder F41.1 and Peripheral edema R60.9 [facility] [address] [id number] [address] [place] [address] Nov, History of DVT (deep vein th rombosis) Z86.718 [facility] [address] [facility] [place] [id number] [address] [place] [address] Nov, 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 [facility] [address] [facility] [place] [id number] [address] [place] [address] Nov, Acute non-recurrent maxillar y sinusitis J01.00 [place] [address] [facility] [place] [id number] [address] [place] [address] Oct, [facility] (current) use of a nticoagulants Z79.01 [place] [address] [facility] [place] [facility] [id number] [address] [place] [phone] Oct, Personal history of venous t hrombosis and embolism Z86.718 [place] [address] [facility] [place] [id number] [address] [place] [address] Sep, [place] [address] [facility] [place] [id number] [place] [address] Sep, Personal history of venous t hrombosis and embolism Z86.718 [place] [address] [place] [id number] [address] [place] [address] Sep, 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 [place] [address] [place] [id number] [address] [place] [address] Sep, [facility] (current) use of a nticoagulants Z79.01 [place] [address] [place] [id number] [address] [place] [address] Sep, Generalized anxiety disorder F41.1 and History of DVT (deep vein thrombosis) Z86.718 [place] [address] [place] [id number] [address] [place] [address] Aug, History of DVT (deep vein th rombosis) Z86.718 ; Generalized anxiety disorder F41.1 ; 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 [address] [id number] [address] [place] [address] July, [facility] [address] [facility] [place] [facility] [id number] [address] [place] [address] July, History of DVT (deep vein th rombosis) Z86.718 [facility] [address] [facility] [place] [id number] [address] [place] [address] Jun, Generalized anxiety disorder F41.1 [facility] [address] [id number] [address] [place] [address] Jun, History of DVT (deep vein th rombosis) Z86.718 [place] [address] [facility] [place] [id number] [address] [place] [address] Jun, History of DVT (deep vein th rombosis) Z86.718 [place] [address] [facility] [place] [id number] [address] [place] [address] Jun, History of DVT (deep vein th rombosis) Z86.718 [place] [address] [id number] [address] [place] [address] Jun, History of DVT (deep vein th rombosis) Z86.718 [place] [address] [facility] [place] [facility] [id number] [address] [place] [address] May, History of DVT (deep vein th rombosis) Z86.718 [place] [address] [facility] [place] [id number] [address] [place] [address] May, [facility] (current) use of a nticoagulants Z79.01 [place] [address] [facility] [place] [id number] [address] [place] [address] May, [facility] (current) use of a nticoagulants Z79.01 [place] [address] [facility] [place] [facility] [id number] [address] [place] [address] May, History of DVT (deep vein th rombosis) Z86.718 [facility] [address] [id number] [address] [place] [phone] 27 Apr, 2016 Bacterial conjunctivitis of left eye H10.9 and H/O motion sickness Z87.898 [facility] [address] [id number] [address] [place] [phone] 24 Apr, 2016 History of DVT (deep vein th rombosis) Z86.718 [facility] [address] [id number] [address] [place] [address] Apr, History of DVT (deep vein th rombosis) Z86.718 [facility] [address] [id number] [address] [place] [address] 15 Apr, 2016 History of DVT (deep vein th rombosis) Z86.718 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 [address] [id number] [address] [place] [address] Mar, [facility] [address] [id number] [address] [place] [address] Mar, [facility] (current) use of a nticoagulants Z79.01 [facility] [address] [id number] [address] [place] [address] Mar, Hypertriglyceridemia E78.1 a nd [facility] (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 [address] [id number] [address] [place] [address] Feb, 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 [facility] [address] [id number] [address] [place] [address] Feb, [facility] (current) use of a nticoagulants Z79.01 [facility] [address] [id number] [address] [place] [address] Feb, [facility] (current) use of a nticoagulants Z79.01 [place] [address] [id number] [address] [place] [phone] Dec, [facility] [address] [id number] [address] [place] [address] Nov, [place] [address] [id number] [address] [place] [address] Nov, History of DVT (deep vein th rombosis) Z86.718 ; Tremulousness R25.1 ; Generalized anxiety disorder F41.1 ; Peripheral edema R60.9 and Hypertriglyceridemia E78.1 [place] [address] [id number] [address] [place] [address] Oct, History of DVT (deep vein th rombosis) Z86.718 [place] [address] [id number] [address] [place] [address] Oct, [place] [address] [id number] [address] [place] [address] Sep, History of DVT (deep vein th rombosis) Z86.718 [place] [address] [id number] [address] [place] [address] Sep, [facility] (current) use of a nticoagulants Z79.01 [place] [address] [id number] [address] [place] [address] July, [place] [address] [id number] [address] [place] [address] July, 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 [place] [address] [id number] [address] [place] [address] July, [facility] (current) use of a nticoagulants Z79.01 [place] [address] [id number] [address] [place] [address] Jun, [facility] (current) use of a nticoagulants Z79.01 [facility] [place] [address] [facility] [place] [id number] [address] [place] [address] Jun, Coccyx pain M53.3 ; Encounte r for therapeutic drug level monitoring Z51.81 and [facility] current use 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.01 [place] [address] [facility] [place] [id number] [address] [place] [address] May, Abnormal mammogram R92.8 [facility] [place] [address] [facility] [place] [id number] [address] [place] [address] May, [facility] [place] [address] [facility] [place] [id number] [address] [place] [address] May, Acute vaginitis N76.0 and En counter for other screening for malignant neoplasm of breast Z12.39 [place] [address] [facility] [place] [id number] [address] [place] [address] Apr, [place] [address] [facility] [place] [id number] [address] [place] [address] Apr, [place] [address] [facility] [place] [id number] [address] [place] [address] Apr, Peripheral edema R60.9 [place] [address] [facility] [place] [id number] [address] [place] [phone] Apr, [facility] (current) use of a nticoagulants Z79.01 [place] [address] [id number] [address] [place] [address] Apr, Peripheral edema R60.9 and L jose martin term (current) 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 Z79.01 [place] [address] [facility] [place] [id number] [address] [place] [address] Apr, 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 [place] [address] [facility] [place]] [id number] [address] [place] [address] Apr, [facility] [address] [id number] [address] [place] [address] Apr, 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 [facility] [address] [id number] [address] [place] [id number] Apr, Peripheral edema R60.9 [place] [address] [id number] [address] [place] [id number] Mar, 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 [place] [address] [id number] [address] [place] [phone] Mar, 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 and Hypertriglyceridemia E78.1 [place] [address] [id number] [address] [place] [id number] Mar, 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 [place] [address] [id number] [address] [place] [id number] Mar, 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 [place] [address] [id number] [address] [place] [id number] Mar, [facility] [address] [id number] [address] [place] [phone] Mar, 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 ; Hypertriglyceridemia E78.1 ; Personal history of venous thrombosis and embolism Z86.718 and Lump R22.9 [place] [address] [id number] [address] [place] [id number] Mar, Personal history of venous t hrombosis and embolism Z86.718 [place] [address] [id number] [address] [place] [phone] Mar, Personal history of venous t hrombosis and embolism Z86.718 [facility] [address] [id number] [address] [place] [phone] Mar, [facility] [address] [id number] [address] [place] [phone] Dec, Personal history of venous t hrombosis and embolism Z86.718 [facility] [address] [id number] [address] [place] [id number] Dec, Personal history of venous t hrombosis and embolism V12.51 [facility] [address] [id number] [address] [place] [id number] Nov, Personal history of venous t hrombosis and embolism V12.51 [facility] [address] [id number] [address] [place] [phone] Nov, Personal history of venous t hrombosis and embolism V12.51 [facility] [address] [address] [id number] [address] [place] [place] [address] Nov, Personal history of venous t hrombosis and embolism V12.51 [facility] [address] [id number] [address] [place] [address] Nov, Personal history of venous t hrombosis and embolism V12.51 [facility] [address] [id number] [address] [place] [address] Nov, [facility] [address] [id number] [address] [place] [address] Oct, Dysuria 788.[address] [facility] [address] [id number] [address] [place] [address] Oct, Personal history of venous t hrombosis and embolism V12.51 [facility] [address] [id number] [address] [place] [address] Oct, [facility] [address] [id number] [address] [place] [address] Oct, Personal history of venous t hrombosis and embolism V12.51 [facility] [address] [id number] [address] [place] [address] Sep, Personal history of venous t hrombosis and embolism V12.51 [facility] [address] [id number] [address] [place] [address] Sep, Personal history of venous t hrombosis and embolism V12.51 [facility] [address] [id number] [address] [place] [address] Aug, Personal history of venous t hrombosis and embolism V12.51 [facility] [address] [id number] [address] [place] [address] Aug, Personal history of venous t hrombosis and embolism V12.51 [facility] [address] [id number] [address] [place] [address] Aug, Personal history of venous t hrombosis and embolism V12.51 [facility] [address] [id number] [address] [place] [address] July, Generalized anxiety disorder 300.02 ; Abdominal pain, left lower quadrant 789.04 and Personal history of venous thrombosis and embolism V12.51 [facility] [address] [id number] [address] [place] [address] Jun, [facility] [address] [id number] [address] [place] [address] Jun, [facility] [address] [id number] [address] [place] [address] May, [facility] [address] [id number] [address] [place] [address] May, [facility] [address] [id number] [address] [place] [address] May, [facility] [address] [id number] [address] [place] [address] May, [facility] [address] [id number] [address] [place] [address] May, [facility] [address] [id number] [address] [place] [address], [place] [address] May, [facility] [address] [id number] [address] [place] [address], [place] [address] May, [facility] [address] [id number] [address] [place] [address], [place] [address] May, [facility] [address] [id number] [address] [place] [address], [place] [address] Apr, [facility] [address] [id number] [address] [place] [address], [place] [address] Apr, [facility] [address] [id number] [address] [place] [address], [place] [id number] Apr, [facility] [address] [id number] [address] [place] [address], [place] [address] Apr, [facility] [address] [id number] [address] [place] [address], [place] [id number] Apr, [facility] [address] [id number] [address] [place] [address], [place] [address] Mar, [facility] [address] [id number] [address] [place] [address], [place] [address] Mar, [facility] [address] [id number] [address] [place] [address], [place] [address] Mar, [facility] [address] [id number] [address] [place] [address], [place] [address] Mar, [facility] [address] [id number] [address] [place] [address], [place] [address] Mar, [facility] [address] [id number] [address] [place] [address], [place] [address] Mar, [facility] [address] [id number] [address] [place] [address], [place] [id number] Feb, [facility] [address] [id number] [address] [place] [address], [place] [address] Feb, [facility] [address] [id number] [address] [place] [address], [place] [id number] Feb, [facility] [address] [id number] [address] [place] [address], [place] [address] Feb, [facility] [address] [id number] [address] [place] [address], [place] [address] Feb, [facility] [address] [id number] [address] [place] [address], [place] [address] Feb, [facility] [address] [id number] [address] [place] [address], [place] [address] Feb, [facility] [address] [id number] [address] [place] [address], [place] [id number] Feb, [facility] [address] [id number] [address] [place] [address], [place] [id number] Feb, [facility] [address] [id number] [address] [place] [address], [place] [address] Feb, [facility] [address] [id number] [address] [place] [address], [place] [address] Jan, [facility] [address] [id number] [address] [place] [address], [place] [address] Jan, [facility] [address] [id number] [address] [place] [address], [place] [address] Jan, [facility] [address] [id number] [address] [place] [address], [place] [address] Jan, [facility] [address] [id number] [address] [place] [address], [place] [address] Jan, [facility] [address] [id number] [address] [place] [address], [place] [address] Jan, [facility] [address] [id number] [address] [place] [address], [place] [address] Jan, [facility] [address] [id number] [address] [place] [address], [place] [address] Jan, [facility] [address] [id number] [address] [place] [address], [place] [address] Jan, [facility] [address] [id number] [address] [place] [address], [place] [address] Jan, [facility] [address] [id number] [address] [place] [address], [place] [id number] Dec, [facility] [address] [id number] [address] [place] [address], [place] [address] Dec, [facility] [address] [id number] [address] [place] [address], [place] [address] Dec, [facility] [address] [id number] [address] [place] [address], [place] [address] Dec, [facility] [address] [id number] [address] [place] [address], [place] [address] Dec, [facility] [address] [id number] [address] [place] [address], [place] [address] Dec, [facility] [address] [id number] [address] [place] [address], [place] [address] Dec, [facility] [address] [id number] [address] [place] [address], [place] [id number] Dec, [facility] [address] [id number] [address] [place] [address] Dec, [facility] [address] [id number] [address] [place] [address], [place] [address] Dec, [facility] [address] [id number] [address] [place] [address], [place] [address] Dec, [facility] [address] [id number] [address] [place] [address], [place] [address] Dec, [facility] [address] [id number] [address] [place] [address], [place] [address] Dec, [facility] [address] [id number] [address] [place] [address], [place] [address] Dec, [facility] [address] [id number] [address] [place] [address], [place] [id number] Dec, [facility] [address] [id number] [address] [place] [address], [place] [address] 30 Nov, 2013 [facility] [address] [id number] [address] [place] [address], [place] [address] 30 Nov, 2013 [facility] [address] [id number] [address] [place] [address], [place] [address] 26 Nov, 2013 [facility] [address] [id number] [address] [place] [address], [place] [address] 26 Nov, 2013 [facility] [address] [id number] [address] [place] [address], [place] [address] 24 Nov, 2013 [facility] [address] [id number] [address] [place] [address], [place] [id number] 24 Nov, 2013 [facility] [address] [id number] [address] [place] [address], [place] [address] 23 Nov, 2013 [facility] [address] [id number] [address] [place] [address], [place] [id number] 23 Nov, 2013 [facility] [address] [id number] [address] [place] [address], [place] [id number] 18 Nov, 2013 [facility] [address] [id number] [address] [place] [address], [place] [address] 18 Sep, 2013 [facility] [address] [id number] [address] [place] [address], [place] [address] 17 Nov, 2013 [facility] [address] [id number] [address] [place] [address], [place] [address] 17 Nov, 2013 [facility] [address] [id number] [address] [place] [address], [place] [address] 11 Nov, 2013 [facility] [address] [id number] [facility] [place] [address] 11 Nov, 2013 [facility] [address] [id number] [facility] [place] [address] Nov, 2013 [facility] [address] [id number] [address] [place] [address], [place] [address] 10 Nov, 2013 [facility] [address] [id number] [address] [place] [address], [place] [address] Nov, 2013 [facility] [address] [id number] [address] [place] [address], [place] [address] Nov, [facility] [address] [id number] [address] [place] [address], [place] [address] Sep, [facility] [address] [id number] [address] [place] [address], [place] [id number] Sep, [facility] [address] [id number] [address] [place] [address], [place] [address] Sep, [facility] [address] [id number] [address] [place] [address], [place] [address] Sep, [facility] [address] [id number] [address] [place] [address], [place] [address] Sep, [facility] [address] [id number] [address] [place] [address], [place] [address] Sep, [facility] [address] [id number] [address] [place] [address], [place] [address] Aug, [facility] [address] [id number] [address] [place] [address], [place] [address] Aug, [facility] [address] [id number] [address] [place] [address], [place] [address] Aug, [facility] [address] [id number] [address] [place] [address], [place] [address] Aug, [facility] [address] [id number] [address] [place] [address], [place] [address] 24 Aug, 2013 [facility] [address] [id number] [address] [place] [address], [place] [address] Aug, [facility] [address] [id number] [address] [place] [address], [place] [address] Aug, [facility] [address] [id number] [address] [place] [address], [place] [address] Aug, [facility] [address] [id number] [address] [place] [address], [place] [address] Aug, [facility] [address] [id number] [address] [place] [address], [place] [address] Aug, [facility] [address] [id number] [address] [place] [address], [place] [id number] Aug, [facility] [address] [id number] [address] [place] [address], [place] [address] July, [facility] [address] [id number] [address] [place] [address], [place] [address] July, [facility] [address] [id number] [address] [place] [address], [place] [address] Jun, [facility] [address] [id number] [address] [place] [address], [place] [address] Jun, [facility] [address] [id number] [address] [place] [address], [place] [id number] Jun, [facility] [address] [id number] [address] [place] [address], [place] [address] Jun, [facility] [address] [id number] [address] [place] [address], [place] [address] Jun, [facility] [address] [id number] [address] [place] [address], [place] [address] Jun, [facility] [address] [id number] [address] [place] [address], [place] [address] 15 Jun, 2013 [facility] [address] [id number] [facility] [place] [address] 15 Jun, 2013 [facility] [address] [id number] [facility] [place] [address] 11 Jun, 2013 [facility] [address] [id number] [facility] [place] [address] Jun, [facility] [address] [id number] [facility] [place] [address] Jun, [facility] [address] [id number] [facility] [place] [address] Jun, [facility] [address] [id number] [facility] [place] [address] May, [facility] [address] [id number] [address] [place] [address], [place] [address] May, [facility] [address] [id number] [address] [place] [address], [place] [address] May, [facility] [address] [id number] [address] [place] [address], [place] [address] May, [facility] [address] [id number] [address] [place] [address], [place] [address] May, [facility] [address] [id number] [address] [place] [address], [place] [address] May, [facility] [address] [id number] [address] [place] [address], [place] [address] May, [facility] [address] [id number] [address] [place] [address], [place] [address] 06 May, 2013 [facility] [address] [id number] [address] [place] [address], [place] [address] May, [facility] [address] [id number] [address] [place] [address], [place] [address] May, [facility] [address] [id number] [address] [place] [address], [place] [address] May, [facility] [address] [id number] [address] [place] [address], [place] [address] May, [facility] [address] [id number] [address] [place] [address], [place] [address] Apr, [facility] [address] [id number] [address] [place] [address], [place] [address] Apr, [facility] [address] [id number] [address] [place] [address], [place] [address] Apr, [facility] [address] [id number] [address] [place] [address], [place] [address] Apr, [facility] [address] [id number] [address] [place] [address], [place] [id number] Apr, [facility] [address] [id number] [address] [place] [address], [place] [address] Apr, [facility] [address] [id number] [address] [place] [address], [place] [address] Apr, [facility] [address] [id number] [address] [place] [address], [place] [address] Apr, [facility] [address] [id number] [address] [place] [address], [place] [address] Apr, [facility] [address] [id number] [address] [place] [address], [place] [address] Apr, [facility] [address] [id number] [address] [place] [address], [place] [address] Apr, [facility] [address] [id number] [address] [place] [address], [place] [address] Apr, [facility] [address] [id number] [address] [place] [address], [place] [address] Apr, [facility] [address] [id number] [address] [place] [address], [place] [address] Apr, [facility] [address] [id number] [address] [place] [address], [place] [address] Apr, [facility] [address] [id number] [address] [place] [address], [place] [id number] Apr, [facility] [address] [id number] [address] [place] [address], [place] [address] Apr, [facility] [address] [id number] [address] [place] [address], [place] [address] Jan, [facility] [address] [id number] [address] [place] [address], [place] [address] Jan, [facility] [address] [id number] [address] [place] [address], [place] [id number] Jan, [facility] [address] [id number] [address] [place] [address], [place] [address] Jan, [facility] [address] [id number] [address] [place] [address], [place] [address] Jan, [facility] [address] [id number] [address] [place] [address], [place] [address] Jan, [facility] [address] [id number] [address] [place] [address], [place] [address] Jan, [facility] [address] [id number] [address] [place] [address], [place] [address] Dec, [facility] [address] [id number] [address] [place] [place] [id number] Dec, [facility] [address] [id number] [address] [place] [address], [place] [address] Dec, [facility] [address] [id number] [address] [place] [address], [place] [id number] Nov, [facility] [address] [id number] [address] [place] [address], [place] [id number] Nov, [facility] [address] [id number] [address] [place] [address] [place] [id number] 05 Nov, 2012 [facility] [address] [id number] [address] [place] [address], [place] [id number] Nov, [facility] [address] [id number] [address] [place] [address], [place] [id number] Oct, [facility] [address] [id number] [address] [place] [address], [place] [id number] Oct, [facility] [address] [id number] [address] [place] [address], [place] [id number] Oct, [facility] [address] [id number] [address] [place] [address], [place] [id number] Oct, [facility] [address] [id number] [address] [place] [address], [place] [id number] Oct, [facility] [address] [id number] [address] [place] [address], [place] [id number] Sep, [facility] [address] [id number] [address] [place] [address], [place] [id number] Sep, [facility] [address] [id number] [address] [place] [address], [place] [id number] Sep, [facility] [address] [id number] [address] [place] [address], [place] [id number] Sep, [facility] [address] [id number] [address] [place] [address], [place] [id number] Sep, [facility] [address] [id number] [address] [place] [address], [place] [id number] Sep, [facility] [address] [id number] [address] [place] [address], [place] [id number] Sep, [facility] [address] [id number] [address] [place] [address], [place] [id number] Aug, [facility] [address] [id number] [address] [place] [address], [place] [id number] Aug, [facility] [address] [id number] [address] [place] [address], [place] [id number] July, [facility] [address] [id number] [address] [place] [address], [place] [id number] Jun, [facility] [address] [id number] [address] [place] [address], [place] [id number] Jun, [facility] [address] [id number] [address] [place] [address], [place] [id number] Jun, [facility] [address] [id number] [address] [place] [address], [place] [id number] Apr, [facility] [address] [id number] [address] [place] [address], [place] [id number] Apr, [facility] [address] [id number] [address] [place] [address], [place] [id number] Apr, [facility] [address] [id number] [address] [place] [address], [place] [id number] Mar, [facility] [address] [id number] [address] [place] [address], [place] [id number] Mar, [facility] [address] [id number] [address] [place] [address], [place] [id number] Mar, [facility] [address] [id number] [address] [place] [address], [place] [id number] Mar, [facility] [address] [id number] [address] [place] [address], [place] [id number] Mar, [facility] [address] [id number] [address] [place] [address], [place] [id number] Feb, [facility] [address] [id number] [address] [place] [address], [place] [id number] Feb, [facility] [address] [id number] [address] [place] [address], [place] [id number] Jan, [facility] [address] [id number] [address] [place] [id number] Jan, [facility] [address] [id number] [address] [place] [address], [place] [id number] 13 Jan, 2012 [facility] [address] [id number] [address] [place] [id number] Jan, [facility] [address] [id number] [address] [place] [id number] 07 Jan, 2012 [facility] [address] [id number] [address] [place] [id number] 07 Jan, 2012 [facility] [address] [id number] [address] [place] [address], [place] [id number] Jan, [facility] [address] [id number] [address] [place] [id number] 31 Dec, 2011 [facility] [address] [id number] [address] [place] [id number] 31 Dec, 2011 [facility] [address] [id number] [address] [place] [id number] 30 Dec, 2011 [facility] [address] [id number] [address] [place] [id number] 30 Dec, 2011 [facility] [facility] [address] [id number] [address] [place] [place] [id number] 30 Dec, 2011 [facility] [address] [id number] [address] [place] [place] [id number] 30 Dec, 2011 [facility] [address] [id number] [address] [place] [id number] 30 Dec, 2011 [facility] [address] [id number] [address] [place] [address], [place] [id number] 30 Dec, 2011 [facility] [address] [id number] [address] [place] [id number] Dec, [facility] [address] [id number] [address] [place] [id number] Dec, [facility] [address] [id number] [address] [place] [address], [place] [id number] Oct, [facility] [address] [id number] [address] [place] [address], [place] [id number] Oct, [facility] [address] [id number] [address] [place] [address], [place] [id number] Aug, [facility] [address] [id number] [address] [place] [address], [place] [id number] Aug, [facility] [address] [id number] [address] [place] [address], [place] [id number] July, [facility] [address] [id number] [address] [place] [address], [place] [id number] Jun, [facility] [address] [id number] [address] [place] [address], [place] [id number] Jun, [facility] [address] [id number] [address] [place] [address], [place] [id number] May, [facility] [address] [id number] [address] [place] [address], [place] [id number] Apr, [facility] [address] [id number] [address] [place] [address], [place] [id number] Apr, [facility] [address] [id number] [address] [place] [address], [place] [id number] Mar, [facility] [address] [id number] [address] [place] [address], [place] [id number] Mar, [facility] [address] [id number] [address] [place] [address], [place] [id number] Feb, [facility] [address] [id number] [address] [place] [address], [place] [id number] 15 Feb, 2011 [facility] [address] [id number] [address] [place] [address], [place] [id number] Feb, [facility] [address] [id number] [address] [place] [address], [place] [id number] Feb, [facility] [address] [id number] [address] [place] [id number] Jan, [facility] [address] [id number] [address] [place] [id number] Dec, [facility] [address] [id number] [address] [place] [id number] Feb, [facility] [address] [id number] [address] [place] [id number] Feb, [facility] [address] [id number] [address] [place] [id number] Feb, [facility] [address] [id number] [address] [place] [id number] Feb, [facility] [address] [id number] [address] [place] [id number] Dec, [facility] [address] [id number] [address] [place] [id number] Dec, [facility] [address] [id number] [address] [place] [id number] Oct, [facility] [address] [id number] [address] [place] [id number] Jun, [facility] [address] [id number] [address] [place] [id number] Feb, [facility] [address] [id number] [address] [place] [phone] Feb, [facility] [address] [id number] [address] [place] [id number] Feb, [facility] [address] [id number] [address] [place] [id number] Dec, IMMUNIZATIONS No Known Immunizations SOCIAL HISTORY [...] 1985, 1987 Surgical History cholecystectomy Surgical History [place] Filter 06/2009 Surgical History Left leg exploratory surgery r/t clot Surgical History left shoulder surgery 09/14/17 Surgical History lap band removed 12/2017 Surgical History gastic sleeve 01/2018 Surgical History Back surgery 2018 Hospitalization History Ruptured Ovarian Cyst with abd bleed ing 11/2009 Hospitalization History Broken Back 06/2018
--- OUTSIDE RECORDS SUMMARY | 2019-10-19 12:36 | XMS REPORT ---
Author Author KIANAMary Jane Organization [facility] Address [address] [place] [address] Care Team Providers Care Russian History Professor Name Role Phone ASHLEY BRUNO Unavailable PROBLEMS Type Condition ICD9-CM Code CZD04-PW Code Onset Dates Condition S tatus SNOMED Code Problem Thyroid follicular adenoma D34 Act phylicia 366745874 Problem History of DVT (deep vein thrombosis) Z86.718 Active 534874250 Problem Factor V Leiden D68.51 Active 3070 70015 Problem general pediatrician (current) use of anticoagulants Z79.01 Active 439812452 Problem Hypertriglyceridemia E78.1 Active 431213087 Problem 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 Active 323519582 Problem Pelvic pain R10.2 Active 17578998 Problem Peripheral edema R60.9 Active 271 969609 Problem Moderate episode of recurrent major depressive disorder F33.1 Active 125623700 Problem Presence of IVC filter Z95.828 Active 092645543 Problem Vitamin D deficiency E55.9 Active 22268186 Problem Generalized anxiety disorder F41.1 A ctive 784297953 Problem Excessive daytime sleepiness G47.19 A ctive 311017940189 Problem Gastroesophageal reflux disease, esophagitis pre sence not specified K21.9 Active 123251354 Problem Thyroid nodule E04.1 Active 55442 5005 Problem Morbid obesity E66.01 Active 00961 6002 ALLERGIES No Information ENCOUNTERS Encounter Location Date Diagnosis [facility] [address] [facility] [id number] [address] [place] [phone] Sep, Hypertriglyceridemia E78.1 a nd Vitamin D deficiency E55.9 [facility] [address] [facility] [id number] [address] [place] [phone] Sep, [facility] [address] [facility] [id number] [address] [place] [phone] Sep, Morbid obesity E66.01 ; Mode rate episode of recurrent major depressive disorder F33.1 ; Hypertriglyceridemia E78.1 and Vitamin D deficiency E55.9 [facility] [address] [facility] [id number] [address] [place] [phone] Aug, [facility] [address] [facility] [id number] [address] [place] [phone] July, [facility] [address] [facility] [id number] [place] [phone] July, [facility] [address] [id number] [address] [place] [phone] Jun, [facility] [address] [place] [id number] [place] [phone] Jun, [facility] [address] [place] [id number] [place] [phone] Jun, Closed compression fracture of L3 lumbar vertebra with routine healing, subsequent encounter S32.030D and Drug-induced constipation K59.03 [facility] [address] [facility] [id number] [address] [place] [phone] Jun, [facility] [address] [place] [id number] [place] [phone] Jun, [facility] [address] [place] [id number] [address] [place] [phone] Apr, [facility] [address] [facility] [id number] [address] [place] [phone] Apr, Morbid obesity E66.01 [facility] [address] [facility] [id number] [address] [place] [phone] Apr, Morbid obesity E66.01 ; Hype rtriglyceridemia E78.1 ; Gastroesophageal reflux disease, esophagitis presence not specified K21.9 and Joint pain M25.50 [facility] [address] [facility] [id number] [address] [place] [phone] Feb, [facility] [address] [place] [id number] [address] [place] [phone] 06 Feb, 2018 [facility] [address] [facility] [id number] [address] [place] [phone] Jan, Acute bacterial conjunctivit is H10.30 [facility] [address] [facility] [id number] [address] [place] [phone] 08 Dec, 2017 [facility] [address] [phone] 04 Dec, 2017 [facility] [address] [facility] [id number] [place] [phone] 17 Nov, 2017 [facility] [address] [phone] 07 Nov, 2017 Obstructive sleep apnea G47. 33 ; Morbid obesity E66.01 and Gastroesophageal reflux disease, esophagitis presence not specified K21.9 [facility] [address] [place] [id number] [address] [place] [id number] 06 Nov, 2017 Encounter for examination of eyes and vision without abnormal findings Z01.00 [facility] [address] [place] [id number] [address] [place] [phone] 31 Oct, 2017 Thyroid nodule E04.1 and Scr eening for breast cancer Z12.31 [facility] [address] [place] [id number] [address] [place] [phone] 23 Oct, 2017 History of DVT (deep vein th rombosis) Z86.718 ; Thyroid nodule E04.1 and Gastroesophageal reflux disease, esophagitis presence not specified K21.9 [facility] [address] [facility] [id number] [address] [place] [phone] Oct, [facility] [address] [place] [id number] [place] [phone] Sep, [facility] [address] [place] [id number] [address] [place] [phone] Aug, [facility] [address] [phone] Aug, [place] [address] [place] [id number] [address] [place] [phone] Aug, Acute pain of left shoulder M25.512 and Thyroid nodule E04.1 [place] [address] [place] [id number] [address] [place] [phone] July, Superior glenoid labrum lesi on of left shoulder, subsequent encounter S43.432D [place] [address] [place] [id number] [address] [place] [phone] Jun, History of DVT (deep vein th rombosis) Z86.718 [place] [address] [place] [id number] [place] [phone] Jun, History of DVT (deep vein th rombosis) Z86.718 [place] [address] [place] [id number] [address] [place] [phone] Jun, Impingement syndrome, should er, left M75.42 [place] [address] [place] [id number] [address] [place] [phone] May, Subacromial bursitis of left shoulder joint M75.52 [place] [address] [place] [id number] [address] [place] [phone] May, [place] [address] [place] [id number] [address] [place] [phone] May, Hypertriglyceridemia E78.1 ; nursing home (current) use of anticoagulants Z79.01 and Excessive daytime sleepiness G47.19 [place] [address] [facility] [id number] [address] [place] [phone] May, History of DVT (deep vein th rombosis) Z86.718 ; Generalized anxiety disorder F41.1 ; Hypertriglyceridemia E78.1 ; general pediatrician (current) use of anticoagulants Z79.01 ; Subacromial bursitis of left shoulder joint M75.52 and Excessive daytime sleepiness G47.19 [place] [address] [id number] [address] [place] [phone] May, [facility] [address] [id number] [address] [place] [phone] May, nursing home (current) use of a nticoagulants Z79.01 [facility] [address] [id number] [address] [place] [phone] Apr, general pediatrician (current) use of a nticoagulants Z79.01 [facility] [address] [id number] [address] [place] [phone] Apr, general pediatrician (current) use of a nticoagulants Z79.01 [facility] [address] [id number] [address] [place] [phone] Apr, general pediatrician (current) use of a nticoagulants Z79.01 [facility] [address] [id number] [address] [place] [phone] Apr, [facility] [address] [id number] [address] [place] [phone] Apr, general pediatrician (current) use of a nticoagulants Z79.01 [facility] [address] [id number] [address] [place] [phone] 13 Apr, 2017 general pediatrician (current) use of a nticoagulants Z79.01 [facility] [address] [id number] [address] [place] [phone] Apr, nursing home (current) use of a nticoagulants Z79.01 [facility] [address] [id number] [address] [place] [phone] Apr, nursing home (current) use of a nticoagulants Z79.01 [facility] [address] [id number] [address] [place] [phone] 07 Apr, 2017 nursing home (current) use of a nticoagulants Z79.01 [facility] [address] [id number] [address] [place] [phone] Apr, nursing home (current) use of a nticoagulants Z79.01 [facility] [address] [id number] [address] [place] [phone] Mar, general pediatrician (current) use of a nticoagulants Z79.01 [facility] [address] [facility] [id number] [address] [place] [phone] Mar, [facility] [address] [id number] [address] [place] [phone] Mar, nursing home (current) use of a nticoagulants Z79.01 [facility] [address] [id number] [place] [address] [id number] Jan, Dental examination Z01.20 [facility] [address] [id number] [place] [address] [id number] Jan, [facility] [address] [facility] [id number] [address] [place] [phone] Jan, nursing home (current) use of a nticoagulants Z79.01 [facility] [address] [facility] [id number] [address] [place] [phone] Jan, History of DVT (deep vein th rombosis) Z86.718 [place] [address] [facility] [id number] [address] [place] [phone] Jan, Generalized anxiety disorder F41.1 and Peripheral edema R60.9 [facility] [address] [id number] [address] [place] [phone] Nov, History of DVT (deep vein th rombosis) Z86.718 [facility] [address] [facility] [id number] [address] [place] [phone] Nov, general pediatrician (current) use of a nticoagulants Z79.01 [facility] [address] [facility] [id number] [address] [place] [phone] Nov, Acute non-recurrent maxillar y sinusitis J01.00 [place] [address] [facility] [id number] [address] [place] [phone] Oct, nursing home (current) use of a nticoagulants Z79.01 [place] [address] [facility] [id number] [address] [place] [phone] Oct, Personal history of venous t hrombosis and embolism Z86.718 [place] [address] [facility] [id number] [address] [place] [phone] Sep, [place] [address] [facility] [id number] [place] [phone] Sep, Personal history of venous t hrombosis and embolism Z86.718 [place] [address] [place] [id number] [address] [place] [phone] Sep, general pediatrician (current) use of a nticoagulants Z79.01 [place] [address] [place] [id number] [address] [place] [phone] Sep, nursing home (current) use of a nticoagulants Z79.01 [place] [address] [place] [id number] [address] [place] [phone] Sep, Generalized anxiety disorder F41.1 and History of DVT (deep vein thrombosis) Z86.718 [place] [address] [place] [id number] [address] [place] [phone] Aug, History of DVT (deep vein th rombosis) Z86.718 ; Generalized anxiety disorder F41.1 ; general pediatrician (current) use of anticoagulants Z79.01 ; Pelvic pain R10.2 ; Hypertriglyceridemia E78.1 ; Excessive daytime sleepiness G47.19 ; Colon cancer screening Z12.11 ; Screening for breast cancer Z12.39 ; Peripheral edema R60.9 and Gastroesophageal reflux disease, esophagitis presence not specified K21.9 [place] [address] [place] [id number] [address] [place] [phone] Aug, [facility] [address] [id number] [address] [place] [phone] July, [facility] [address] [facility] [id number] [address] [place] [phone] July, History of DVT (deep vein th rombosis) Z86.718 [facility] [address] [facility] [id number] [address] [place] [phone] Jun, Generalized anxiety disorder F41.1 [facility] [address] [id number] [address] [place] [phone] Jun, History of DVT (deep vein th rombosis) Z86.718 [place] [address] [facility] [id number] [address] [place] [phone] Jun, History of DVT (deep vein th rombosis) Z86.718 [place] [address] [facility] [id number] [address] [place] [phone] Jun, History of DVT (deep vein th rombosis) Z86.718 [place] [address] [id number] [address] [place] [phone] Jun, History of DVT (deep vein th rombosis) Z86.718 [place] [address] [facility] [id number] [address] [place] [phone] May, History of DVT (deep vein th rombosis) Z86.718 [place] [address] [facility] [id number] [address] [place] [phone] May, nursing home (current) use of a nticoagulants Z79.01 [place] [address] [facility] [id number] [address] [place] [phone] May, nursing home (current) use of a nticoagulants Z79.01 [place] [address] [facility] [id number] [address] [place] [phone] May, History of DVT (deep vein th rombosis) Z86.718 [facility] [address] [id number] [address] [place] [phone] 27 Apr, 2016 Bacterial conjunctivitis of left eye H10.9 and H/O motion sickness Z87.898 [facility] [address] [id number] [address] [place] [phone] 24 Apr, 2016 History of DVT (deep vein th rombosis) Z86.718 [facility] [address] [id number] [address] [place] [phone] Apr, History of DVT (deep vein th rombosis) Z86.718 [facility] [address] [id number] [address] [place] [phone] 15 Apr, 2016 History of DVT (deep vein th rombosis) Z86.718 [facility] [address] [facility] [id number] [address] [place] [phone] 14 Apr, 2016 general pediatrician (current) use of a nticoagulants Z79.01 [facility] [address] [id number] [address] [place] [phone] Mar, [facility] [address] [id number] [address] [place] [phone] Mar, nursing home (current) use of a nticoagulants Z79.01 [facility] [address] [id number] [address] [place] [phone] Mar, Hypertriglyceridemia E78.1 a nd nursing home (current) use of anticoagulants Z79.01 [facility] [address] [id number] [address] [place] [phone] Feb, general pediatrician (current) use of a nticoagulants Z79.01 [facility] [address] [id number] [address] [place] [phone] Feb, nursing home (current) use of a nticoagulants Z79.01 [facility] [address] [id number] [address] [place] [phone] Feb, nursing home (current) use of a nticoagulants Z79.01 [place] [address] [id number] [address] [place] [phone] Dec, [facility] [address] [id number] [address] [place] [phone] Nov, [place] [address] [id number] [address] [place] [phone] Nov, History of DVT (deep vein th rombosis) Z86.718 ; Tremulousness R25.1 ; Generalized anxiety disorder F41.1 ; Peripheral edema R60.9 and Hypertriglyceridemia E78.1 [place] [address] [id number] [address] [place] [phone] Oct, History of DVT (deep vein th rombosis) Z86.718 [place] [address] [id number] [address] [place] [phone] Oct, [place] [address] [id number] [address] [place] [phone] Sep, History of DVT (deep vein th rombosis) Z86.718 [place] [address] [id number] [address] [place] [phone] Sep, nursing home (current) use of a nticoagulants Z79.01 [place] [address] [id number] [address] [place] [phone] July, [place] [address] [id number] [address] [place] [phone] July, general pediatrician (current) use of a nticoagulants Z79.01 [place] [address] [id number] [address] [place] [phone] July, nursing home (current) use of a nticoagulants Z79.01 [place] [address] [id number] [address] [place] [phone] Jun, nursing home (current) use of a nticoagulants Z79.01 [facility] [place] [address] [facility] [id number] [address] [place] [phone] Jun, Coccyx pain M53.3 ; Encounte r for therapeutic drug level monitoring Z51.81 and nursing home current use 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.01 [place] [address] [facility] [id number] [address] [place] [phone] May, Abnormal mammogram R92.8 [facility] [place] [address] [facility] [id number] [address] [place] [phone] May, [facility] [place] [address] [facility] [id number] [address] [place] [phone] May, Acute vaginitis N76.0 and En counter for other screening for malignant neoplasm of breast Z12.39 [place] [address] [facility] [id number] [address] [place] [phone] Apr, [place] [address] [facility] [id number] [address] [place] [phone] Apr, [place] [address] [facility] [id number] [address] [place] [phone] Apr, Peripheral edema R60.9 [place] [address] [facility] [id number] [address] [place] [phone] Apr, nursing home (current) use of a nticoagulants Z79.01 [place] [address] [id number] [address] [place] [phone] Apr, Peripheral edema R60.9 and L jose martin term (current) 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 Z79.01 [place] [address] [facility] [id number] [address] [place] [phone] Apr, general pediatrician (current) use of a nticoagulants Z79.01 [place] [address] [facility] [id number] [address] [place] [phone] Apr, [facility] [address] [id number] [address] [place] [phone] Apr, general pediatrician (current) use of a nticoagulants Z79.01 [facility] [address] [id number] [address] [place] [phone] Apr, Peripheral edema R60.9 [place] [address] [id number] [address] [place] [phone] Mar, general pediatrician (current) use of a nticoagulants Z79.01 [place] [address] [id number] [address] [place] [phone] Mar, general pediatrician (current) use of a nticoagulants Z79.01 and Hypertriglyceridemia E78.1 [place] [address] [id number] [address] [place] [phone] Mar, general pediatrician (current) use of a nticoagulants Z79.01 [place] [address] [id number] [address] [place] [phone] Mar, general pediatrician (current) use of a nticoagulants Z79.01 [place] [address] [id number] [address] [place] [phone] Mar, [facility] [address] [id number] [address] [place] [phone] Mar, general pediatrician (current) use of a nticoagulants Z79.01 ; Hypertriglyceridemia E78.1 ; Personal history of venous thrombosis and embolism Z86.718 and Lump R22.9 [place] [address] [id number] [address] [place] [phone] Mar, Personal history of venous t hrombosis and embolism Z86.718 [place] [id number] [id number] [address] [place] [phone] Mar, Personal history of venous t hrombosis and embolism Z86.718 [facility] [address] [id number] [address] [place] [phone] Mar, [facility] [address] [id number] [address] [place] [phone] Dec, Personal history of venous t hrombosis and embolism Z86.718 [facility] [address] [id number] [address] [place] [phone] Dec, Personal history of venous t hrombosis and embolism V12.51 [facility] [address] [id number] [address] [place] [phone] Nov, Personal history of venous t hrombosis and embolism V12.51 [facility] [address] [id number] [address] [place] [phone] Nov, Personal history of venous t hrombosis and embolism V12.51 [facility] [address] [id number] [address] [place] [phone] Nov, Personal history of venous t hrombosis and embolism V12.51 [facility] [address] [id number] [address] [place] [phone] Nov, Personal history of venous t hrombosis and embolism V12.51 [facility] [address] [id number] [address] [place] [phone] Nov, [facility] [address] [id number] [address] [place] [phone] Oct, Dysuria 788.1 [facility] [address] [id number] [address] [place] [phone] Oct, Personal history of venous t hrombosis and embolism V12.51 [facility] [address] [id number] [address] [place] [phone] Oct, [facility] [address] [id number] [address] [place] [id number] Oct, Personal history of venous t hrombosis and embolism V12.51 [facility] [address] [id number] [address] [place] [id number] Sep, Personal history of venous t hrombosis and embolism V12.51 [facility] [address] [id number] [address] [place] [id number] Sep, Personal history of venous t hrombosis and embolism V12.51 [facility] [address] [id number] [address] [place] [id number] Aug, Personal history of venous t hrombosis and embolism V12.51 [facility] [address] [id number] [address] [place] [id number] Aug, Personal history of venous t hrombosis and embolism V12.51 [facility] [address] [id number] [address] [place] [id number] Aug, Personal history of venous t hrombosis and embolism V12.51 [facility] [address] [id number] [address] [place] [id number] July, Generalized anxiety disorder 300.02 ; Abdominal pain, left lower quadrant 789.04 and Personal history of venous thrombosis and embolism V12.51 [facility] [address] [id number] [address] [place] [id number] Jun, [facility] [address] [id number] [address] [place] [id number] Jun, [facility] [address] [id number] [address] [place] [id number] May, [facility] [address] [id number] [address] [place] [id number] May, [facility] [address] [id number] [address] [place] [id number] May, [facility] [address] [id number] [address] [place] [id number] May, [facility] [address] [id number] [address] [place] [id number] May, [facility] [address] [id number] [address] [place] [address], [place] [address] May, [facility] [address] [id number] [address] [place] [address], [place] [address] May, [facility] [address] [id number] [address] [place] [address], [place] [address] May, [facility] [address] [id number] [address] [place] [address], [place] [address] Apr, [facility] [address] [id number] [address] [place] [address], [place] [address] Apr, [facility] [address] [id number] [address] [place] [address], [place] [address] Apr, [facility] [address] [id number] [address] [place] [address], [place] [address] Apr, [facility] [address] [id number] [address] [place] [address], [place] [address] Apr, [facility] [address] [id number] [address] [place] [address], [place] [address] Mar, [facility] [address] [id number] [address] [place] [address], [place] [address] Mar, [facility] [address] [id number] [address] [place] [address], [place] [address] Mar, [facility] [address] [id number] [address] [place] [address], [place] [address] Mar, [facility] [address] [id number] [address] [place] [address], [place] [address] Mar, [facility] [address] [id number] [address] [place] [address], [place] [address] Mar, [facility] [address] [id number] [address] [place] [address], [place] [address] Feb, [facility] [address] [id number] [address] [place] [address], [place] [address] Feb, [facility] [address] [id number] [address] [place] [address], [place] [address] Feb, [facility] [address] [id number] [address] [place] [address], [place] [address] Feb, [facility] [address] [id number] [address] [place] [address], [place] [address] Feb, [facility] [address] [id number] [address] [place] [address], [place] [address] Feb, [facility] [address] [id number] [address] [place] [address], [place] [address] Feb, [facility] [address] [id number] [address] [place] [address], [place] [address] Feb, [facility] [address] [id number] [address] [place] [address], [place] [address] Feb, [facility] [address] [id number] [address] [place] [address], [place] [address] Feb, [facility] [address] [id number] [address] [place] [address], [place] [address] Jan, [facility] [address] [id number] [address] [place] [address], [place] [address] Jan, [facility] [address] [id number] [address] [place] [address], [place] [address] Jan, [facility] [address] [id number] [address] [place] [address], [place] [address] Jan, [facility] [address] [id number] [address] [place] [address], [place] [address] Jan, [facility] [address] [id number] [address] [place] [address], [place] [address] Jan, [facility] [address] [id number] [address] [place] [address], [place] [address] Jan, [facility] [address] [id number] [address] [place] [address], [place] [address] Jan, [facility] [address] [id number] [address] [place] [address], [place] [address] Jan, [facility] [address] [id number] [address] [place] [address], [place] [address] Jan, [facility] [address] [id number] [address] [place] [address], [place] [address] Dec, [facility] [address] [id number] [address] [place] [address], [place] [address] Dec, [facility] [address] [id number] [address] [place] [address], [place] [address] Dec, [facility] [address] [id number] [address] [place] [address], [place] [address] Dec, [facility] [address] [id number] [address] [place] [address], [place] [address] Dec, [facility] [address] [id number] [address] [place] [address], [place] [address] Dec, [facility] [address] [id number] [address] [place] [address], [place] [address] Dec, [facility] [address] [id number] [address] [place] [address], [place] [address] Dec, [facility] [address] [id number] [address] [place] [id number] Dec, [facility] [address] [id number] [address] [place] [address], [place] [address] Dec, [facility] [address] [id number] [address] [place] [address], [place] [address] Dec, [facility] [address] [id number] [address] [place] [address], [place] [address] Dec, [facility] [address] [id number] [address] [place] [address], [place] [address] Dec, [facility] [address] [id number] [address] [place] [address], [place] [address] Dec, [facility] [address] [id number] [address] [place] [address], [place] [address] Dec, [facility] [address] [id number] [address] [place] [address], [place] [address] 30 Nov, 2013 [facility] [address] [id number] [address] [place] [address], [place] [address] 30 Nov, 2013 [facility] [address] [id number] [address] [place] [address], [place] [address] 26 Nov, 2013 [facility] [address] [id number] [address] [place] [address], [place] [address] 26 Nov, 2013 [facility] [address] [id number] [address] [place] [address], [place] [address] 24 Nov, 2013 [facility] [address] [id number] [address] [place] [address], [place] [address] 24 Nov, 2013 [facility] [address] [id number] [address] [place] [address], [place] [address] 23 Nov, 2013 [facility] [address] [id number] [address] [place] [address], [place] [address] 23 Nov, 2013 [facility] [address] [id number] [address] [place] [address], [place] [address] 18 Nov, 2013 [facility] [address] [id number] [address] [place] [address], [place] [address] 18 Sep, 2013 [facility] [address] [id number] [address] [place] [address], [place] [address] 17 Nov, 2013 [facility] [address] [id number] [address] [place] [address], [place] [address] 17 Nov, 2013 [facility] [address] [id number] [address] [place] [address], [place] [address] 11 Nov, 2013 [facility] [address] [id number] [facility] [place] [address] 11 Nov, 2013 [facility] [address] [id number] [facility] [place] [address] Nov, 2013 [facility] [address] [id number] [address] [place] [address], [place] [address] 10 Nov, 2013 [facility] [address] [id number] [address] [place] [address], [place] [address] Nov, 2013 [facility] [address] [id number] [address] [place] [address], [place] [address] Nov, [facility] [address] [id number] [address] [place] [address], [place] [address] Sep, [facility] [address] [id number] [address] [place] [address], [place] [address] Sep, [facility] [address] [id number] [address] [place] [address], [place] [address] Sep, [facility] [address] [id number] [address] [place] [address], [place] [address] Sep, [facility] [address] [id number] [address] [place] [address], [place] [address] Sep, [facility] [address] [id number] [address] [place] [address], [place] [address] Sep, [facility] [address] [id number] [address] [place] [address], [place] [address] Aug, [facility] [address] [id number] [address] [place] [address], [place] [address] Aug, [facility] [address] [id number] [address] [place] [address], [place] [address] Aug, [facility] [address] [id number] [address] [place] [address], [place] [address] Aug, [facility] [address] [id number] [address] [place] [address], [place] [address] 24 Aug, 2013 [facility] [address] [id number] [address] [place] [address], [place] [address] Aug, [facility] [address] [id number] [address] [place] [address], [place] [address] Aug, [facility] [address] [id number] [address] [place] [address], [place] [address] Aug, [facility] [address] [id number] [address] [place] [address], [place] [address] Aug, [facility] [address] [id number] [address] [place] [address], [place] [address] Aug, [facility] [address] [id number] [address] [place] [address], [place] [address] Aug, [facility] [address] [id number] [address] [place] [address], [place] [address] July, [facility] [address] [id number] [address] [place] [address], [place] [address] July, [facility] [address] [id number] [address] [place] [address], [place] [address] Jun, [facility] [address] [id number] [address] [place] [address], [place] [address] Jun, [facility] [address] [id number] [address] [place] [address], [place] [address] Jun, [facility] [address] [id number] [address] [place] [address], [place] [address] Jun, [facility] [address] [id number] [address] [place] [address], [place] [address] Jun, [facility] [address] [id number] [address] [place] [address], [place] [address] Jun, [facility] [address] [id number] [address] [place] [address], [place] [address] 15 Jun, 2013 [facility] [address] [id number] [facility] [place] [address] 15 Jun, 2013 [facility] [address] [id number] [facility] [place] [address] 11 Jun, 2013 [facility] [address] [id number] [facility] [place] [address] Jun, [facility] [address] [id number] [facility] [place] [address] Jun, [facility] [address] [id number] [facility] [place] [address] Jun, [facility] [address] [id number] [facility] [place] [address] May, [facility] [address] [id number] [address] [place] [address], [place] [address] May, [facility] [address] [id number] [address] [place] [address], [place] [address] May, [facility] [address] [id number] [address] [place] [address], [place] [address] May, [facility] [address] [id number] [address] [place] [address], [place] [address] May, [facility] [address] [id number] [address] [place] [address], [place] [address] May, [facility] [address] [id number] [address] [place] [address], [place] [address] May, [facility] [address] [id number] [address] [place] [address], [place] [address] 06 May, 2013 [facility] [address] [id number] [address] [place] [address], [place] [address] May, [facility] [address] [id number] [address] [place] [address], [place] [address] May, [facility] [address] [id number] [address] [place] [address], [place] [address] May, [facility] [address] [id number] [address] [place] [address], [place] [address] May, [facility] [address] [id number] [address] [place] [address], [place] [address] Apr, [facility] [address] [id number] [address] [place] [address], [place] [address] Apr, [facility] [address] [id number] [address] [place] [address], [place] [address] Apr, [facility] [address] [id number] [address] [place] [address], [place] [address] Apr, [facility] [address] [id number] [address] [place] [address], [place] [address] Apr, [facility] [address] [id number] [address] [place] [address], [place] [address] Apr, [facility] [address] [id number] [address] [place] [address], [place] [address] Apr, [facility] [address] [id number] [address] [place] [address], [place] [address] Apr, [facility] [address] [id number] [address] [place] [address], [place] [address] Apr, [facility] [address] [id number] [address] [place] [address], [place] [address] Apr, [facility] [address] [id number] [address] [place] [address], [place] [address] Apr, [facility] [address] [id number] [address] [place] [address], [place] [address] Apr, [facility] [address] [id number] [address] [place] [address], [place] [address] Apr, [facility] [address] [id number] [address] [place] [address], [place] [address] Apr, [facility] [address] [id number] [address] [place] [address], [place] [address] Apr, [facility] [address] [id number] [address] [place] [address], [place] [address] Apr, [facility] [address] [id number] [address] [place] [address], [place] [address] Apr, [facility] [address] [id number] [address] [place] [address], [place] [address] Jan, [facility] [address] [id number] [address] [place] [address], [place] [address] Jan, [facility] [address] [id number] [address] [place] [address], [place] [address] Jan, [facility] [address] [id number] [address] [place] [address], [place] [address] Jan, [facility] [address] [id number] [address] [place] [address], [place] [address] Jan, [facility] [address] [id number] [address] [place] [address], [place] [address] Jan, [facility] [address] [id number] [address] [place] [address], [place] [address] Jan, [facility] [address] [id number] [address] [place] [address], [place] [address] Dec, [facility] [address] [id number] [address] [place] [id number] Dec, [facility] [address] [id number] [address] [place] [address], [place] [address] Dec, [facility] [address] [id number] [address] [place] [address], [place] [address] Nov, [facility] [address] [id number] [address] [place] [address], [place] [address] Nov, [facility] [address] [id number] [address] [place] [address] [place] [address] 05 Nov, 2012 [facility] [address] [id number] [address] [place] [address], [place] [address] Nov, [facility] [address] [id number] [address] [place] [address], [place] [address] Oct, [facility] [address] [id number] [address] [place] [address], [place] [address] Oct, [facility] [address] [id number] [address] [place] [address], [place] [address] Oct, [facility] [address] [id number] [address] [place] [address], [place] [id number] Oct, [facility] [address] [id number] [address] [place] [address], [place] [id number] Oct, [facility] [address] [id number] [address] [place] [address], [place] [id number] Sep, [facility] [address] [id number] [address] [place] [address], [place] [id number] Sep, [facility] [address] [id number] [address] [place] [address], [place] [id number] Sep, [facility] [address] [id number] [address] [place] [address], [place] [id number] Sep, [facility] [address] [id number] [address] [place] [address], [place] [address] Sep, [facility] [address] [id number] [address] [place] [address], [place] [id number] Sep, [facility] [address] [id number] [address] [place] [address], [place] [id number] Sep, [facility] [address] [id number] [address] [place] [address], [place] [id number] Aug, [facility] [address] [id number] [address] [place] [address], [place] [id number] Aug, [facility] [address] [id number] [address] [place] [address], [place] [id number] July, [facility] [address] [id number] [address] [place] [address], [place] [id number] Jun, [facility] [address] [id number] [address] [place] [address], [place] [id number] Jun, [facility] [address] [id number] [address] [place] [address], [place] [id number] Jun, [facility] [address] [id number] [address] [place] [address], [place] [address] Apr, [facility] [address] [id number] [address] [place] [address], [place] [id number] Apr, [facility] [address] [id number] [address] [place] [address], [place] [address] Apr, [facility] [address] [id number] [address] [place] [address], [place] [id number] Mar, [facility] [address] [id number] [address] [place] [address], [place] [address] Mar, [facility] [address] [id number] [address] [place] [address], [place] [id number] Mar, [facility] [address] [id number] [address] [place] [address], [place] [id number] Mar, [facility] [address] [id number] [address] [place] [address], [place] [address] Mar, [facility] [address] [id number] [address] [place] [address], [place] [id number] Feb, [facility] [address] [id number] [address] [place] [address], [place] [id number] Feb, [facility] [address] [id number] [address] [place] [address], [place] [id number] Jan, [facility] [address] [id number] [address] [place] [id number] Jan, [facility] [address] [id number] [address] [place] [address], [place] [id number] 13 Jan, 2012 [facility] [address] [id number] [address] [place] [id number] Jan, [facility] [address] [id number] [address] [place] [id number] 07 Jan, 2012 [facility] [address] [id number] [address] [place] [id number] 07 Jan, 2012 [facility] [address] [id number] [address] [place] [address], [place] [address] Jan, [facility] [address] [id number] [address] [place] [id number] 31 Dec, 2011 [facility] [address] [id number] [address] [place] [id number] 31 Dec, 2011 [facility] [address] [id number] [address] [place] [id number] 30 Dec, 2011 [facility] [address] [id number] [address] [place] [id number] 30 Dec, 2011 [facility] [address] [id number] [address] [place] [id number] 30 Dec, 2011 [facility] [address] [id number] [address] [place] [id number] 30 Dec, 2011 [facility] [address] [id number] [address] [place] [id number] 30 Dec, 2011 [facility] [address] [id number] [address] [place] [address], [place] [id number] 30 Dec, 2011 [facility] [address] [id number] [address] [place] [id number] Dec, [facility] [address] [id number] [address] [place] [id number] Dec, [facility] [address] [id number] [address] [place] [address], [place] [id number] Oct, [facility] [address] [id number] [address] [place] [address], [place] [id number] Oct, [facility] [address] [id number] [address] [place] [address], [place] [id number] Aug, [facility] [address] [id number] [address] [place] [address], [place] [id number] Aug, [facility] [address] [id number] [address] [place] [address], [place] [id number] July, [facility] [address] [id number] [address] [place] [address], [place] [id number] Jun, [facility] [address] [id number] [address] [place] [address], [place] [id number] Jun, [facility] [address] [id number] [address] [place] [address], [place] [id number] May, [facility] [address] [id number] [address] [place] [address], [place] [id number] Apr, [facility] [address] [id number] [address] [place] [address], [place] [id number] Apr, [facility] [address] [id number] [address] [place] [address], [place] [id number] Mar, [facility] [address] [id number] [address] [place] [address], [place] [id number] Mar, [facility] [address] [id number] [address] [place] [address], [place] [id number] Feb, [facility] [address] [id number] [address] [place] [address], [place] [id number] 15 Feb, 2011 [facility] [address] [id number] [address] [place] [address], [place] [id number] Feb, [facility] [address] [id number] [address] [place] [address], [place] [id number] Feb, [facility] [address] [id number] [address] [place] [id number] Jan, [facility] [address] [id number] [address] [place] [id number] Dec, [facility] [address] [id number] [address] [place] [id number] Feb, [facility] [address] [id number] [address] [place] [id number] Feb, [facility] [address] [id number] [address] [place] [id number] Feb, [facility] [address] [id number] [address] [place] [id number] Feb, [facility] [address] [id number] [address] [place] [id number] Dec, [facility] [address] [id number] [address] [place] [id number] Dec, [facility] [address] [id number] [address] [place] [id number] Oct, [facility] [address] [id number] [address] [place] [id number] Jun, [facility] [address] [id number] [address] [place] [id number] Feb, [facility] [address] [id number] [address] [place] [id number] Feb, [facility] [address] [id number] [address] [place] [id number] Feb, [facility] [address] [id number] [address] [place] [id number] Dec, IMMUNIZATIONS No Known Immunizations SOCIAL HISTORY Never Assessed REASON FOR VISIT PLAN OF CARE VITAL SIGNS MEDICATIONS Unknown Medications RESULTS No Results PROCEDURES Procedure Date Ordered Result Body Site PROTHROMBIN TIME Apr 26, 2014 VENIPTREVOR, ROUTINE* Apr 26, 2014 INSTRUCTIONS MEDICATIONS ADMINISTERED No Known Medications [...]
--- OUTSIDE RECORDS SUMMARY | 2019-10-19 12:36 | XMS REPORT ---
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 Active 800250943 Problem Hypertriglyceridemia E78.1 Active 426291928 Problem 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 Active 197346092 Problem Pelvic pain R10.2 Active 93116241 Problem Peripheral edema R60.9 Active 271 048870 Problem Moderate episode of recurrent major depressive disorder F33.1 Active 539193961 Problem Presence of IVC filter Z95.828 Active 245606595 Problem Vitamin D deficiency E55.9 Active 52066151 Problem Generalized anxiety disorder F41.1 A ctive 252002319 Problem Excessive daytime sleepiness G47.19 A ctive 839526865316 Problem Gastroesophageal reflux disease, esophagitis pre sence not specified K21.9 Active 513489582 Problem Thyroid nodule E04.1 Active 98232 5005 Problem Morbid obesity E66.01 Active 18008 6002 ALLERGIES No Information ENCOUNTERS Encounter Location Date Diagnosis [facility] [address] [facility] [id number] [address] [place] [address] Sep, Hypertriglyceridemia E78.1 a nd Vitamin D deficiency E55.9 [facility] [address] [facility] [id number] [address] [place] [address] Sep, [facility] [address] [facility] [id number] [address] [place] [address] Sep, Morbid obesity E66.01 ; Mode rate episode of recurrent major depressive disorder F33.1 ; Hypertriglyceridemia E78.1 and Vitamin D deficiency E55.9 [facility] [address] [facility] [id number] [address] [place] [address] Aug, [facility] [address] [facility] [id number] [address] [place] [address] July, [facility] [address] [facility] [id number] [place] [address] July, [facility] [address] [id number] [address] [place] [address] Jun, [facility] [address] [place] [id number] [place] [address] Jun, [facility] [address] [place] [id number] [place] [address] Jun, Closed compression fracture of L3 lumbar vertebra with routine healing, subsequent encounter S32.030D and Drug-induced constipation K59.03 [facility] [address] [facility] [id number] [address] [place] [address] Jun, [facility] [address] [place] [id number] [place] [address] Jun, [facility] [address] [place] [id number] [address] [place] [address] Apr, [facility] [address] [facility] [id number] [address] [place] [address] Apr, Morbid obesity E66.01 [facility] [address] [facility] [id number] [address] [place] [address] Apr, Morbid obesity E66.01 ; Hype rtriglyceridemia E78.1 ; Gastroesophageal reflux disease, esophagitis presence not specified K21.9 and Joint pain M25.50 [facility] [address] [facility] [id number] [address] [place] [address] Feb, [facility] [address] [place] [id number] [address] [place] [address] 06 Feb, 2018 [facility] [address] [facility] [id number] [address] [place] [address] Jan, Acute bacterial conjunctivit is H10.30 [facility] [address] [facility] [id number] [address] [place] [phone] 08 Dec, 2017 [facility] [address] [address] 04 Dec, 2017 [facility] [address] [facility] [id number] [place] [phone] 17 Nov, 2017 [facility] [address] [address] 07 Nov, 2017 Obstructive sleep apnea G47. 33 ; Morbid obesity E66.01 and Gastroesophageal reflux disease, esophagitis presence not specified K21.9 [facility] [address] [place] [id number] [address] [place] [id number] 06 Nov, 2017 Encounter for examination of eyes and vision without abnormal findings Z01.00 [facility] [address] [place] [id number] [address] [place] [address] 31 Oct, 2017 Thyroid nodule E04.1 and Scr eening for breast cancer Z12.31 [facility] [address] [place] [id number] [address] [place] [address] 23 Oct, 2017 History of DVT (deep vein th rombosis) Z86.718 ; Thyroid nodule E04.1 and Gastroesophageal reflux disease, esophagitis presence not specified K21.9 [facility] [address] [facility] [id number] [address] [place] [address] Oct, [facility] [address] [place] [id number] [place] [phone] Sep, [facility] [address] [place] [id number] [address] [place] [address] Aug, [facility] [address] [address] Aug, [place] [address] [place] [id number] [address] [place] [address] Aug, Acute pain of left shoulder M25.512 and Thyroid nodule E04.1 [place] [address] [place] [id number] [address] [place] [address] July, Superior glenoid labrum lesi on of left shoulder, subsequent encounter S43.432D [place] [address] [place] [id number] [address] [place] [address] Jun, History of DVT (deep vein th rombosis) Z86.718 [place] [address] [place] [id number] [place] [address] Jun, History of DVT (deep vein th rombosis) Z86.718 [place] [address] [place] [id number] [address] [place] [address] Jun, Impingement syndrome, should er, left M75.42 [place] [address] [place] [id number] [address] [place] [address] May, Subacromial bursitis of left shoulder joint M75.52 [place] [address] [place] [id number] [address] [place] [address] May, [place] [address] [place] [id number] [address] [place] [address] May, Hypertriglyceridemia E78.1 ; [facility] (current) use of anticoagulants Z79.01 and Excessive daytime sleepiness G47.19 [place] [address] [facility] [id number] [address] [place] [address] May, History of DVT (deep vein th rombosis) Z86.718 ; Generalized anxiety disorder F41.1 ; Hypertriglyceridemia E78.1 ; fish 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 tender (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 Z79.01 ; Subacromial bursitis of left shoulder joint M75.52 and Excessive daytime sleepiness G47.19 [place] [address] [id number] [address] [place] [address] May, [facility] [address] [id number] [address] [place] [address] May, [facility] (current) use of a nticoagulants Z79.01 [facility] [address] [id number] [address] [place] [address] Apr, fish bin tender (current) use of a nticoagulants Z79.01 [facility] [address] [id number] [address] [place] [address] Apr, fish bin tender (current) use of a nticoagulants Z79.01 [facility] [address] [id number] [address] [place] [address] Apr, fish bin tender (current) use of a nticoagulants Z79.01 [facility] [address] [id number] [address] [place] [address] Apr, [facility] [address] [id number] [address] [place] [address] Apr, fish bin tender (current) use of a nticoagulants Z79.01 [facility] [address] [id number] [address] [place] [address] 13 Apr, 2017 fish bin tender (current) use of a nticoagulants Z79.01 [facility] [address] [id number] [address] [place] [address] Apr, [facility] (current) use of a nticoagulants Z79.01 [facility] [address] [id number] [address] [place] [address] Apr, [facility] (current) use of a nticoagulants Z79.01 [facility] [address] [id number] [address] [place] [phone] 07 Apr, 2017 [facility] (current) use of a nticoagulants Z79.01 [facility] [address] [id number] [address] [place] [address] Apr, [facility] (current) use of a nticoagulants Z79.01 [facility] [address] [id number] [address] [place] [address] Mar, fish bin tender (current) use of a nticoagulants Z79.01 [facility] [address] [facility] [id number] [address] [place] [address] Mar, [facility] [address] [id number] [address] [place] [address] Mar, [facility] (current) use of a nticoagulants Z79.01 [facility] [id number] [place] [id number] Jan, Dental examination Z01.20 [facility] [id number] [place] [id number] Jan, [facility] [address] [facility] [id number] [address] [place] [address] Jan, [facility] (current) use of a nticoagulants Z79.01 [facility] [address] [facility] [id number] [address] [place] [address] Jan, History of DVT (deep vein th rombosis) Z86.718 [place] [address] [facility] [id number] [address] [place] [address] Jan, Generalized anxiety disorder F41.1 and Peripheral edema R60.9 [facility] [address] [id number] [address] [place] [address] Nov, History of DVT (deep vein th rombosis) Z86.718 [facility] [address] [facility] [id number] [address] [place] [address] Nov, fish bin tender (current) use of a nticoagulants Z79.01 [facility] [address] [facility] [id number] [address] [place] [address] Nov, Acute non-recurrent maxillar y sinusitis J01.00 [place] [address] [facility] [id number] [address] [place] [address] Oct, [facility] (current) use of a nticoagulants Z79.01 [place] [address] [facility] [id number] [address] [place] [address] Oct, Personal history of venous t hrombosis and embolism Z86.718 [place] [address] [facility] [id number] [address] [place] [address] Sep, [place] [address] [facility] [id number] [place] [address] Sep, Personal history of venous t hrombosis and embolism Z86.718 [place] [address] [place] [id number] [address] [place] [address] Sep, fish bin tender (current) use of a nticoagulants Z79.01 [place] [address] [place] [id number] [address] [place] [address] Sep, [facility] (current) use of a nticoagulants Z79.01 [place] [address] [place] [id number] [address] [place] [address] Sep, Generalized anxiety disorder F41.1 and History of DVT (deep vein thrombosis) Z86.718 [place] [address] [place] [id number] [address] [place] [address] Aug, History of DVT (deep vein th rombosis) Z86.718 ; Generalized anxiety disorder F41.1 ; fish bin tender (current) use of anticoagulants Z79.01 ; Pelvic pain R10.2 ; Hypertriglyceridemia E78.1 ; Excessive daytime sleepiness G47.19 ; Colon cancer screening Z12.11 ; Screening for breast cancer Z12.39 ; Peripheral edema R60.9 and Gastroesophageal reflux disease, esophagitis presence not specified K21.9 [place] [address] [place] [id number] [address] [place] [address] Aug, [facility] [address] [id number] [address] [place] [address] July, [facility] [address] [facility] [id number] [address] [place] [phone] July, History of DVT (deep vein th rombosis) Z86.718 [facility] [address] [facility] [id number] [address] [place] [address] Jun, Generalized anxiety disorder F41.1 [facility] [address] [id number] [address] [place] [address] Jun, History of DVT (deep vein th rombosis) Z86.718 [place] [address] [facility] [id number] [address] [place] [address] Jun, History of DVT (deep vein th rombosis) Z86.718 [place] [address] [facility] [id number] [address] [place] [address] Jun, History of DVT (deep vein th rombosis) Z86.718 [place] [address] [id number] [address] [place] [address] Jun, History of DVT (deep vein th rombosis) Z86.718 [place] [address] [facility] [id number] [address] [place] [address] May, History of DVT (deep vein th rombosis) Z86.718 [place] [address] [facility] [id number] [address] [place] [address] May, [facility] (current) use of a nticoagulants Z79.01 [place] [address] [facility] [id number] [address] [place] [address] May, [facility] (current) use of a nticoagulants Z79.01 [place] [address] [facility] [id number] [address] [place] [address] May, History of DVT (deep vein th rombosis) Z86.718 [facility] [address] [id number] [address] [place] [address] 27 Apr, 2016 Bacterial conjunctivitis of left eye H10.9 and H/O motion sickness Z87.898 [facility] [address] [id number] [address] [place] [address] 24 Apr, 2016 History of DVT (deep vein th rombosis) Z86.718 [facility] [address] [id number] [address] [place] [address] Apr, History of DVT (deep vein th rombosis) Z86.718 [facility] [address] [id number] [address] [place] [address] 15 Apr, 2016 History of DVT (deep vein th rombosis) Z86.718 [facility] [address] [facility] [id number] [address] [place] [address] 14 Apr, 2016 fish bin tender (current) use of a nticoagulants Z79.01 [facility] [address] [id number] [address] [place] [address] Mar, [facility] [address] [id number] [address] [place] [address] Mar, [facility] (current) use of a nticoagulants Z79.01 [facility] [address] [id number] [address] [place] [address] Mar, Hypertriglyceridemia E78.1 a nd [facility] (current) use of anticoagulants Z79.01 [facility] [address] [id number] [address] [place] [address] Feb, fish bin tender (current) use of a nticoagulants Z79.01 [facility] [address] [id number] [address] [place] [address] Feb, [facility] (current) use of a nticoagulants Z79.01 [facility] [address] [id number] [address] [place] [address] Feb, [facility] (current) use of a nticoagulants Z79.01 [place] [address] [id number] [address] [place] [address] Dec, [facility] [address] [id number] [address] [place] [address] Nov, [place] [address] [id number] [address] [place] [address] Nov, History of DVT (deep vein th rombosis) Z86.718 ; Tremulousness R25.1 ; Generalized anxiety disorder F41.1 ; Peripheral edema R60.9 and Hypertriglyceridemia E78.1 [place] [address] [id number] [address] [place] [address] Oct, History of DVT (deep vein th rombosis) Z86.718 [place] [address] [id number] [address] [place] [address] Oct, [place] [address] [id number] [address] [place] [address] Sep, History of DVT (deep vein th rombosis) Z86.718 [place] [address] [id number] [address] [place] [address] Sep, [facility] (current) use of a nticoagulants Z79.01 [place] [address] [id number] [address] [place] [address] July, [place] [address] [id number] [address] [place] [address] July, [facility] (current) use of a nticoagulants Z79.01 [place] [address] [id number] [address] [place] [address] July, [facility] (current) use of a nticoagulants Z79.01 [place] [address] [id number] [address] [place] [address] Jun, [facility] (current) use of a nticoagulants Z79.01 [facility] [place] [address] [address] [facility] [id number] [address] [place] [address] Jun, Coccyx pain M53.3 ; Encounte r for therapeutic drug level monitoring Z51.81 and [facility] current use 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.01 [place] [address] [facility] [id number] [address] [place] [address] May, Abnormal mammogram R92.8 [facility] [place] [address] [address] [facility] [id number] [address] [place] [address] May, [facility] [place] [address] [address] [facility] [id number] [address] [place] [address] May, Acute vaginitis N76.0 and En counter for other screening for malignant neoplasm of breast Z12.39 [place] [address] [facility] [id number] [address] [place] [address] Apr, [place] [address] [facility] [id number] [address] [place] [address] Apr, [place] [address] [facility] [id number] [address] [place] [address] Apr, Peripheral edema R60.9 [place] [address] [facility] [id number] [address] [place] [address] Apr, [facility] (current) use of a nticoagulants Z79.01 [place] [address] [id number] [address] [place] [address] Apr, Peripheral edema R60.9 and [facility] (current) 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 Z79.01 [place] [address] [facility] [id number] [address] [place] [address] Apr, [facility] (current) use of a nticoagulants Z79.01 [place] [address] [facility] [id number] [address] [place] [address] Apr, [facility] [address] [id number] [address] [place] [address] Apr, [facility] (current) use of a nticoagulants Z79.01 [facility] [address] [id number] [address] [place] [address] Apr, Peripheral edema R60.9 [place] [address] [id number] [address] [place] [address] Mar, [facility] (current) use of a nticoagulants Z79.01 [place] [address] [id number] [address] [place] [address] Mar, [facility] (current) use of a nticoagulants Z79.01 and Hypertriglyceridemia E78.1 [place] [address] [id number] [address] [place] [address] Mar, [facility] (current) use of a nticoagulants Z79.01 [place] [address] [id number] [address] [place] [address] Mar, [facility] (current) use of a nticoagulants Z79.01 [place] [address] [id number] [address] [place] [address] Mar, [facility] [address] [id number] [address] [place] [address] Mar, [facility] (current) use of a nticoagulants Z79.01 ; Hypertriglyceridemia E78.1 ; Personal history of venous thrombosis and embolism Z86.718 and Lump R22.9 [place] [address] [id number] [address] [place] [address] Mar, Personal history of venous t hrombosis and embolism Z86.718 [place] [address] [id number] [address] [place] [address] Mar, Personal history of venous t hrombosis and embolism Z86.718 [facility] [address] [id number] [address] [place] [address] Mar, [facility] [address] [id number] [address] [place] [address] Dec, Personal history of venous t hrombosis and embolism Z86.718 [facility] [address] [id number] [address] [place] [address] Dec, Personal history of venous t hrombosis and embolism V12.51 [facility] [address] [id number] [address] [place] [id number] Nov, Personal history of venous t hrombosis and embolism V12.51 [facility] [address] [id number] [address] [place] [id number] Nov, Personal history of venous t hrombosis and embolism V12.51 [facility] [address] [id number] [address] [place] [id number] Nov, Personal history of venous t hrombosis and embolism V12.51 [facility] [address] [id number] [address] [place] [id number] Nov, Personal history of venous t hrombosis and embolism V12.51 [facility] [address] [id number] [address] [place] [phone] Nov, [facility] [address] [id number] [address] [place] [phone] Oct, Dysuria 788.1 [facility] [address] [id number] [address] [place] [id number] Oct, Personal history of venous t hrombosis and embolism V12.51 [facility] [address] [id number] [address] [place] [id number] Oct, [facility] [address] [id number] [address] [place] [id number] Oct, Personal history of venous t hrombosis and embolism V12.51 [facility] [address] [id number] [address] [place] [id number] Sep, Personal history of venous t hrombosis and embolism V12.51 [facility] [address] [id number] [address] [place] [address] Sep, Personal history of venous t hrombosis and embolism V12.51 [facility] [address] [id number] [address] [place] [address] Aug, Personal history of venous t hrombosis and embolism V12.51 [facility] [address] [id number] [address] [place] [address] Aug, Personal history of venous t hrombosis and embolism V12.51 [facility] [address] [id number] [address] [place] [address] Aug, Personal history of venous t hrombosis and embolism V12.51 [facility] [address] [id number] [address] [place] [address] July, Generalized anxiety disorder 300.02 ; Abdominal pain, left lower quadrant 789.04 and Personal history of venous thrombosis and embolism V12.51 [facility] [address] [id number] [address] [place] [address] Jun, [facility] [address] [id number] [address] [place] [address] Jun, [facility] [address] [id number] [address] [place] [address] May, [facility] [address] [id number] [address] [place] [address] May, [facility] [address] [id number] [address] [place] [address] May, [facility] [address] [id number] [address] [place] [address] May, [facility] [address] [id number] [address] [place] [address] May, [facility] [address] [id number] [address] [place] [address], [place] [address] May, [facility] [address] [id number] [address] [place] [address], [place] [address] May, [facility] [address] [id number] [address] [place] [address], [place] [address] May, [facility] [address] [id number] [address] [place] [address], [place] [address] Apr, [facility] [address] [id number] [address] [place] [address], [place] [address] Apr, [facility] [address] [id number] [address] [place] [address], [place] [address] Apr, [facility] [address] [id number] [address] [place] [address], [place] [address] Apr, [facility] [address] [id number] [address] [place] [address], [place] [address] Apr, [facility] [address] [id number] [address] [place] [address], [place] [address] Mar, [facility] [address] [id number] [address] [place] [address], [place] [address] Mar, [facility] [address] [id number] [address] [place] [address], [place] [address] Mar, [facility] [address] [id number] [address] [place] [address], [place] [address] Mar, [facility] [address] [id number] [address] [place] [address], [place] [address] Mar, [facility] [address] [id number] [address] [place] [address], [place] [address] Mar, [facility] [address] [id number] [address] [place] [address], [place] [address] Feb, [facility] [address] [id number] [address] [place] [address], [place] [address] Feb, [facility] [address] [id number] [address] [place] [address], [place] [address] Feb, [facility] [address] [id number] [address] [place] [address], [place] [address] Feb, [facility] [address] [id number] [address] [place] [address], [place] [address] Feb, [facility] [address] [id number] [address] [place] [address], [place] [address] Feb, [facility] [address] [id number] [address] [place] [address], [place] [address] Feb, [facility] [address] [id number] [address] [place] [address], [place] [address] Feb, [facility] [address] [id number] [address] [place] [address], [place] [address] Feb, [facility] [address] [id number] [address] [place] [address], [place] [address] Feb, [facility] [address] [id number] [address] [place] [address], [place] [address] Jan, [facility] [address] [id number] [address] [place] [address], [place] [address] Jan, [facility] [address] [id number] [address] [place] [address], [place] [address] Jan, [facility] [address] [id number] [address] [place] [address], [place] [address] Jan, [facility] [address] [id number] [address] [place] [address], [place] [address] Jan, [facility] [address] [id number] [address] [place] [address], [place] [address] Jan, [facility] [address] [id number] [address] [place] [address], [place] [address] Jan, [facility] [address] [id number] [address] [place] [address], [place] [address] Jan, [facility] [address] [id number] [address] [place] [address], [place] [address] Jan, [facility] [address] [id number] [address] [place] [address], [place] [address] Jan, [facility] [address] [id number] [address] [place] [address], [place] [address] Dec, [facility] [address] [id number] [address] [place] [address], [place] [address] Dec, [facility] [address] [id number] [address] [place] [address], [place] [address] Dec, [facility] [address] [id number] [address] [place] [address], [place] [address] Dec, [facility] [address] [id number] [address] [place] [address], [place] [address] Dec, [facility] [address] [id number] [address] [place] [address], [place] [address] Dec, [facility] [address] [id number] [address] [place] [address], [place] [address] Dec, [facility] [address] [id number] [address] [place] [address], [place] [address] Dec, [facility] [address] [id number] [address] [place] [address] Dec, [facility] [address] [id number] [address] [place] [address], [place] [address] Dec, [facility] [address] [id number] [address] [place] [address], [place] [address] Dec, [facility] [address] [id number] [address] [place] [address], [place] [address] Dec, [facility] [address] [id number] [address] [place] [address], [place] [address] Dec, [facility] [address] [id number] [address] [place] [address], [place] [address] Dec, [facility] [address] [id number] [address] [place] [address], [place] [address] Dec, [facility] [address] [id number] [address] [place] [address], [place] [address] 30 Nov, 2013 [facility] [address] [id number] [address] [place] [address], [place] [address] 30 Nov, 2013 [facility] [address] [id number] [address] [place] [address], [place] [address] 26 Nov, 2013 [facility] [address] [id number] [address] [place] [address], [place] [address] 26 Nov, 2013 [facility] [address] [id number] [address] [place] [address], [place] [address] 24 Nov, 2013 [facility] [address] [id number] [address] [place] [address], [place] [address] 24 Nov, 2013 [facility] [address] [id number] [address] [place] [address], [place] [address] 23 Nov, 2013 [facility] [address] [id number] [address] [place] [address], [place] [address] 23 Nov, 2013 [facility] [address] [id number] [address] [place] [address], [place] [address] 18 Nov, 2013 [facility] [address] [id number] [address] [place] [address], [place] [address] 18 Sep, 2013 [facility] [address] [id number] [address] [place] [address], [place] [address] 17 Nov, 2013 [facility] [address] [id number] [address] [place] [address], [place] [address] 17 Nov, 2013 [facility] [address] [id number] [address] [place] [address], [place] [address] 11 Nov, 2013 [facility] [address] [id number] [facility] [address] 11 Nov, 2013 [facility] [address] [id number] [facility] [address] Nov, 2013 [facility] [address] [id number] [address] [place] [address], [place] [address] 10 Nov, 2013 [facility] [address] [id number] [address] [place] [address], [place] [address] Nov, 2013 [facility] [address] [id number] [address] [place] [address], [place] [address] Nov, [facility] [address] [id number] [address] [place] [address], [place] [address] Sep, [facility] [address] [id number] [address] [place] [address], [place] [address] Sep, [facility] [address] [id number] [address] [place] [address], [place] [address] Sep, [facility] [address] [id number] [address] [place] [address], [place] [address] Sep, [facility] [address] [id number] [address] [place] [address], [place] [address] Sep, [facility] [address] [id number] [address] [place] [address], [place] [address] Sep, [facility] [address] [id number] [address] [place] [address], [place] [address] Aug, [facility] [address] [id number] [address] [place] [address], [place] [address] Aug, [facility] [address] [id number] [address] [place] [address], [place] [address] Aug, [facility] [address] [id number] [address] [place] [address], [place] [address] Aug, [facility] [address] [id number] [address] [place] [address], [place] [address] 24 Aug, 2013 [facility] [address] [id number] [address] [place] [address], [place] [address] Aug, [facility] [address] [id number] [address] [place] [address], [place] [address] Aug, [facility] [address] [id number] [address] [place] [address], [place] [address] Aug, [facility] [address] [id number] [address] [place] [address], [place] [address] Aug, [facility] [address] [id number] [address] [place] [address], [place] [address] Aug, [facility] [address] [id number] [address] [place] [address], [place] [address] Aug, [facility] [address] [id number] [address] [place] [address], [place] [address] July, [facility] [address] [id number] [address] [place] [address], [place] [address] July, [facility] [address] [id number] [address] [place] [address], [place] [address] Jun, [facility] [address] [id number] [address] [place] [address], [place] [address] Jun, [facility] [address] [id number] [address] [place] [address], [place] [address] Jun, [facility] [address] [id number] [address] [place] [address], [place] [address] Jun, [facility] [address] [id number] [address] [place] [address], [place] [address] Jun, [facility] [address] [id number] [address] [place] [address], [place] [address] Jun, [facility] [address] [id number] [address] [place] [address], [place] [address] 15 Jun, 2013 [facility] [address] [id number] [facility] [address] 15 Jun, 2013 [facility] [address] [id number] [facility] [address] 11 Jun, 2013 [facility] [address] [id number] [facility] [address] Jun, [facility] [address] [id number] [facility] [address] Jun, [facility] [address] [id number] [facility] [address] Jun, [facility] [address] [id number] [facility] [address] May, [facility] [address] [id number] [address] [place] [address], [place] [address] May, [facility] [address] [id number] [address] [place] [address], [place] [address] May, [facility] [address] [id number] [address] [place] [address], [place] [address] May, [facility] [address] [id number] [address] [place] [address], [place] [address] May, [facility] [address] [id number] [address] [place] [address], [place] [address] May, [facility] [address] [id number] [address] [place] [address], [place] [address] May, [facility] [address] [id number] [address] [place] [address], [place] [address] 06 May, 2013 [facility] [address] [id number] [address] [place] [address], [place] [address] May, [facility] [address] [id number] [address] [place] [address], [place] [address] May, [facility] [address] [id number] [address] [place] [address], [place] [address] May, [facility] [address] [id number] [address] [place] [address], [place] [address] May, [facility] [address] [id number] [address] [place] [address], [place] [address] Apr, [facility] [address] [id number] [address] [place] [address], [place] [address] Apr, [facility] [address] [id number] [address] [place] [address], [place] [address] Apr, [facility] [address] [id number] [address] [place] [address], [place] [address] Apr, [facility] [address] [id number] [address] [place] [address], [place] [address] Apr, [facility] [address] [id number] [address] [place] [address], [place] [address] Apr, [facility] [address] [id number] [address] [place] [address], [place] [address] Apr, [facility] [address] [id number] [address] [place] [address], [place] [address] Apr, [facility] [address] [id number] [address] [place] [address], [place] [address] Apr, [facility] [address] [id number] [address] [place] [address], [place] [address] Apr, [facility] [address] [id number] [address] [place] [address], [place] [address] Apr, [facility] [address] [id number] [address] [place] [address], [place] [address] Apr, [facility] [address] [id number] [address] [place] [address], [place] [address] Apr, [facility] [address] [id number] [address] [place] [address], [place] [address] Apr, [facility] [address] [id number] [address] [place] [address], [place] [address] Apr, [facility] [address] [id number] [address] [place] [address], [place] [address] Apr, [facility] [address] [id number] [address] [place] [address], [place] [address] Apr, [facility] [address] [id number] [address] [place] [address], [place] [address] Jan, [facility] [address] [id number] [address] [place] [address], [place] [address] Jan, [facility] [address] [id number] [address] [place] [address], [place] [address] Jan, [facility] [address] [id number] [address] [place] [address], [place] [address] Jan, [facility] [address] [id number] [address] [place] [address], [place] [address] Jan, [facility] [address] [id number] [address] [place] [address], [place] [address] Jan, [facility] [address] [id number] [address] [place] [address], [place] [address] Jan, [facility] [address] [id number] [address] [place] [address], [place] [address] Dec, [facility] [address] [id number] [address] [place] [address] Dec, [facility] [address] [id number] [address] [place] [address], [place] [address] Dec, [facility] [address] [id number] [address] [place] [address], [place] [address] Nov, [facility] [address] [id number] [address] [place] [address], [place] [address] Nov, [facility] [address] [id number] [address] [place] [address] [place] [address] 05 Nov, 2012 [facility] [address] [id number] [address] [place] [address], [place] [address] Nov, [facility] [address] [id number] [address] [place] [address], [place] [address] Oct, [facility] [address] [id number] [address] [place] [address], [place] [address] Oct, [facility] [address] [id number] [address] [place] [address], [place] [address] Oct, [facility] [address] [id number] [address] [place] [address], [place] [address] Oct, [facility] [address] [id number] [address] [place] [address], [place] [address] Oct, [facility] [address] [id number] [address] [place] [address], [place] [address] Sep, [facility] [address] [id number] [address] [place] [address], [place] [address] Sep, [facility] [address] [id number] [address] [place] [address], [place] [address] Sep, [facility] [address] [id number] [address] [place] [address], [place] [address] Sep, [facility] [address] [id number] [address] [place] [address], [place] [address] Sep, [facility] [address] [id number] [address] [place] [address], [place] [address] Sep, [facility] [address] [id number] [address] [place] [address], [place] [address] Sep, [facility] [address] [id number] [address] [place] [address], [place] [address] Aug, [facility] [address] [id number] [address] [place] [address], [place] [address] Aug, [facility] [address] [id number] [address] [place] [address], [place] [address] July, [facility] [address] [id number] [address] [place] [address], [place] [address] Jun, [facility] [address] [id number] [address] [place] [address], [place] [address] Jun, [facility] [address] [id number] [address] [place] [address], [place] [address] Jun, [facility] [address] [id number] [address] [place] [address], [place] [address] Apr, [facility] [address] [id number] [address] [place] [address], [place] [address] Apr, [facility] [address] [id number] [address] [place] [address], [place] [address] Apr, [facility] [address] [id number] [address] [place] [address], [place] [address] Mar, [facility] [address] [id number] [address] [place] [address], [place] [address] Mar, [facility] [address] [id number] [address] [place] [address], [place] [address] Mar, [facility] [address] [id number] [address] [place] [address], [place] [address] Mar, [facility] [address] [id number] [address] [place] [address], [place] [address] Mar, [facility] [address] [id number] [address] [place] [address], [place] [address] Feb, [facility] [address] [id number] [address] [place] [address], [place] [address] Feb, [facility] [address] [id number] [address] [place] [address], [place] [address] Jan, [facility] [address] [id number] [address] [place] [address] Jan, [facility] [address] [id number] [address] [place] [address], [place] [address] 13 Jan, 2012 [facility] [address] [id number] [address] [place] [address] Jan, [facility] [address] [id number] [address] [place] [id number] 07 Jan, 2012 [facility] [address] [id number] [address] [place] [address] 07 Jan, 2012 [facility] [address] [id number] [address] [place] [address], [place] [address] Jan, [facility] [address] [id number] [address] [place] [address] 31 Dec, 2011 [facility] [address] [id number] [address] [place] [address] 31 Dec, 2011 [facility] [address] [id number] [address] [place] [address] 30 Dec, 2011 [facility] [address] [id number] [address] [place] [address] 30 Dec, 2011 [facility] [address] [id number] [address] [place] [address] 30 Dec, 2011 [facility] [address] [id number] [address] [place] [address] 30 Dec, 2011 [facility] [address] [id number] [address] [place] [address] 30 Dec, 2011 [facility] [address] [id number] [address] [place] [address], [place] [address] 30 Dec, 2011 [facility] [address] [id number] [address] [place] [address] Dec, [facility] [address] [id number] [address] [place] [address] Dec, [facility] [address] [id number] [address] [place] [address], [place] [address] Oct, [facility] [address] [id number] [address] [place] [address], [place] [address] Oct, [facility] [address] [id number] [address] [place] [address], [place] [address] Aug, [facility] [address] [id number] [address] [place] [address], [place] [address] Aug, [facility] [address] [id number] [address] [place] [address], [place] [address] July, [facility] [address] [id number] [address] [place] [address], [place] [address] Jun, [facility] [address] [id number] [address] [place] [address], [place] [address] Jun, [facility] [facility] [address] [id number] [address] [place] [address], [place] [address] May, [facility] [address] [id number] [address] [place] [address], [place] [address] Apr, [facility] [address] [id number] [address] [place] [address], [place] [address] Apr, [facility] [address] [id number] [address] [place] [address], [place] [address] Mar, [facility] [address] [id number] [address] [place] [address], [place] [address] Mar, [facility] [address] [id number] [address] [place] [address], [place] [address] Feb, [facility] [address] [id number] [address] [place] [address], [place] [phone] 15 Feb, 2011 [facility] [address] [id number] [address] [place] [address], [place] [address] Feb, [facility] [address] [id number] [address] [place] [address], [place] [address] Feb, [facility] [address] [id number] [address] [place] [id number] Jan, [facility] [address] [id number] [address] [place] [phone] Dec, [facility] [address] [id number] [address] [place] [id number] Feb, [facility] [address] [id number] [address] [place] [id number] Feb, [facility] [address] [id number] [address] [place] [address] Feb, [facility] [address] [id number] [address] [place] [id number] Feb, [facility] [address] [id number] [address] [place] [phone] Dec, [facility] [address] [id number] [address] [place] [phone] Dec, [facility] [address] [id number] [address] [place] [id number] Oct, [facility] [address] [id number] [address] [place] [id number] Jun, [facility] [address] [id number] [address] [place] [id number] Feb, [facility] [address] [id number] [address] [place] [phone] Feb, [facility] [address] [id number] [address] [place] [id number] Feb, [facility] [address] [id number] [address] [place] [id number] Dec, IMMUNIZATIONS No Known Immunizations SOCIAL HISTORY [...] 1987 Surgical History cholecystectomy Surgical History [place] Filter 06/2009 Surgical History Left leg exploratory surgery r/t clot Surgical History left shoulder surgery 09/14/17 Surgical History lap band removed 12/2017 Surgical History gastic sleeve 01/2018 Surgical History Back surgery 2018 Hospitalization History Ruptured Ovarian Cyst with abd bleed ing 11/2009 Hospitalization History Broken Back 06/2018
--- OUTSIDE RECORDS SUMMARY | 2019-10-19 12:37 | XMS REPORT ---
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 Active 159346147 Problem Hypertriglyceridemia E78.1 Active 676178254 Problem 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 Active 589430535 Problem Pelvic pain R10.2 Active 21934001 Problem Peripheral edema R60.9 Active 271 469244 Problem Moderate episode of recurrent major depressive disorder F33.1 Active 841602237 Problem Presence of IVC filter Z95.828 Active 064108476 Problem Vitamin D deficiency E55.9 Active 42556558 Problem Generalized anxiety disorder F41.1 A ctive 060976304 Problem Excessive daytime sleepiness G47.19 A ctive 156542823545 Problem Gastroesophageal reflux disease, esophagitis pre sence not specified K21.9 Active 966082795 Problem Thyroid nodule E04.1 Active 30510 5005 Problem Morbid obesity E66.01 Active 48561 6002 ALLERGIES No Information ENCOUNTERS Encounter Location Date Diagnosis [facility] [address] [facility] [id number] [address] [place] [phone] Sep, Hypertriglyceridemia E78.1 a nd Vitamin D deficiency E55.9 [facility] [address] [facility] [id number] [address] [place] [address] Sep, [facility] [address] [facility] [id number] [address] [place] [address] Sep, Morbid obesity E66.01 ; Mode rate episode of recurrent major depressive disorder F33.1 ; Hypertriglyceridemia E78.1 and Vitamin D deficiency E55.9 [facility] [address] [facility] [id number] [address] [place] [address] Aug, [facility] [address] [facility] [id number] [address] [place] [phone] July, [facility] [address] [facility] [id number] [place] [phone] July, [facility] [address] [id number] [address] [place] [phone] Jun, [facility] [address] [place] [id number] [place] [address] Jun, [facility] [address] [place] [id number] [place] [address] Jun, Closed compression fracture of L3 lumbar vertebra with routine healing, subsequent encounter S32.030D and Drug-induced constipation K59.03 [facility] [address] [facility] [id number] [address] [place] [phone] Jun, [facility] [address] [place] [id number] [place] [phone] Jun, [facility] [address] [place] [id number] [address] [place] [phone] Apr, [facility] [address] [facility] [id number] [address] [place] [address] Apr, Morbid obesity E66.01 [facility] [address] [facility] [id number] [address] [place] [address] Apr, Morbid obesity E66.01 ; Hype rtriglyceridemia E78.1 ; Gastroesophageal reflux disease, esophagitis presence not specified K21.9 and Joint pain M25.50 [facility] [address] [facility] [id number] [address] [place] [phone] Feb, [facility] [address] [place] [id number] [address] [place] [phone] 06 Feb, 2018 [facility] [address] [facility] [id number] [address] [place] [address] Jan, Acute bacterial conjunctivit is H10.30 [facility] [address] [facility] [id number] [address] [place] [phone] 08 Dec, 2017 [facility] [address] [phone] 04 Dec, 2017 [facility] [address] [facility] [id number] [place] [phone] 17 Nov, 2017 [facility] [address] [phone] 07 Nov, 2017 Obstructive sleep apnea G47. 33 ; Morbid obesity E66.01 and Gastroesophageal reflux disease, esophagitis presence not specified K21.9 [facility] [address] [place] [id number] [address] [place] [id number] 06 Nov, 2017 Encounter for examination of eyes and vision without abnormal findings Z01.00 [facility] [address] [place] [id number] [address] [place] [phone] 31 Oct, 2017 Thyroid nodule E04.1 and Scr eening for breast cancer Z12.31 [facility] [address] [place] [id number] [address] [place] [phone] 23 Oct, 2017 History of DVT (deep vein th rombosis) Z86.718 ; Thyroid nodule E04.1 and Gastroesophageal reflux disease, esophagitis presence not specified K21.9 [facility] [address] [facility] [id number] [address] [place] [address] Oct, [facility] [address] [place] [id number] [place] [address] Sep, [facility] [address] [place] [id number] [address] [place] [phone] Aug, [facility] [address] [address] Aug, [place] [address] [place] [id number] [address] [place] [phone] Aug, Acute pain of left shoulder M25.512 and Thyroid nodule E04.1 [place] [address] [place] [id number] [address] [place] [address] July, Superior glenoid labrum lesi on of left shoulder, subsequent encounter S43.432D [place] [address] [place] [id number] [address] [place] [address] Jun, History of DVT (deep vein th rombosis) Z86.718 [place] [address] [place] [id number] [place] [address] Jun, History of DVT (deep vein th rombosis) Z86.718 [place] [address] [place] [id number] [address] [place] [address] Jun, Impingement syndrome, should er, left M75.42 [place] [address] [place] [id number] [address] [place] [phone] May, Subacromial bursitis of left shoulder joint M75.52 [place] [address] [place] [id number] [address] [place] [address] May, [place] [address] [place] [id number] [address] [place] [address] May, Hypertriglyceridemia E78.1 ; half-way (current) use of anticoagulants Z79.01 and Excessive daytime sleepiness G47.19 [place] [address] [facility] [id number] [address] [place] [address] May, History of DVT (deep vein th rombosis) Z86.718 ; Generalized anxiety disorder F41.1 ; Hypertriglyceridemia E78.1 ; termination clerk (current) 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 Z79.01 ; Subacromial bursitis of left shoulder joint M75.52 and Excessive daytime sleepiness G47.19 [place] [address] [id number] [address] [place] [address] May, [facility] [address] [id number] [address] [place] [address] May, half-way (current) use of a nticoagulants Z79.01 [facility] [address] [id number] [address] [place] [phone] Apr, termination clerk (current) use of a nticoagulants Z79.01 [facility] [address] [id number] [address] [place] [address] Apr, termination clerk (current) use of a nticoagulants Z79.01 [facility] [address] [id number] [address] [place] [address] Apr, termination clerk (current) use of a nticoagulants Z79.01 [facility] [address] [id number] [address] [place] [address] Apr, [facility] [address] [id number] [address] [place] [address] Apr, termination clerk (current) use of a nticoagulants Z79.01 [facility] [address] [id number] [address] [place] [phone] 13 Apr, 2017 termination clerk (current) use of a nticoagulants Z79.01 [facility] [address] [id number] [address] [place] [address] Apr, half-way (current) use of a nticoagulants Z79.01 [facility] [address] [id number] [address] [place] [address] Apr, half-way (current) use of a nticoagulants Z79.01 [facility] [address] [id number] [address] [place] [address] 07 Apr, 2017 half-way (current) use of a nticoagulants Z79.01 [facility] [address] [id number] [address] [place] [address] Apr, half-way (current) use of a nticoagulants Z79.01 [facility] [address] [id number] [address] [place] [address] Mar, termination clerk (current) use of a nticoagulants Z79.01 [facility] [address] [facility] [id number] [address] [place] [address] Mar, [facility] [address] [id number] [address] [place] [phone] Mar, half-way (current) use of a nticoagulants Z79.01 [facility] [id number] [place] [id number] Jan, Dental examination Z01.20 [facility] [id number] [place] [id number] Jan, [facility] [address] [facility] [id number] [address] [place] [phone] Jan, half-way (current) use of a nticoagulants Z79.01 [facility] [address] [facility] [id number] [address] [place] [address] Jan, History of DVT (deep vein th rombosis) Z86.718 [place] [address] [facility] [id number] [address] [place] [phone] Jan, Generalized anxiety disorder F41.1 and Peripheral edema R60.9 [facility] [address] [id number] [address] [place] [address] Nov, History of DVT (deep vein th rombosis) Z86.718 [facility] [address] [facility] [id number] [address] [place] [address] Nov, termination clerk (current) use of a nticoagulants Z79.01 [facility] [address] [facility] [id number] [address] [place] [address] Nov, Acute non-recurrent maxillar y sinusitis J01.00 [place] [address] [facility] [id number] [address] [place] [phone] Oct, half-way (current) use of a nticoagulants Z79.01 [place] [address] [facility] [id number] [address] [place] [address] Oct, Personal history of venous t hrombosis and embolism Z86.718 [place] [address] [facility] [id number] [address] [place] [address] Sep, [place] [address] [facility] [id number] [place] [address] Sep, Personal history of venous t hrombosis and embolism Z86.718 [place] [address] [place] [id number] [address] [place] [phone] Sep, termination clerk (current) use of a nticoagulants Z79.01 [place] [address] [place] [id number] [address] [place] [address] Sep, half-way (current) use of a nticoagulants Z79.01 [place] [address] [place] [id number] [address] [place] [address] Sep, Generalized anxiety disorder F41.1 and History of DVT (deep vein thrombosis) Z86.718 [place] [address] [place] [id number] [address] [place] [address] Aug, History of DVT (deep vein th rombosis) Z86.718 ; Generalized anxiety disorder F41.1 ; termination clerk (current) use of anticoagulants Z79.01 ; Pelvic pain R10.2 ; Hypertriglyceridemia E78.1 ; Excessive daytime sleepiness G47.19 ; Colon cancer screening Z12.11 ; Screening for breast cancer Z12.39 ; Peripheral edema R60.9 and Gastroesophageal reflux disease, esophagitis presence not specified K21.9 [place] [address] [place] [id number] [place] [phone] Aug, [facility] [address] [id number] [address] [place] [address] July, [facility] [address] [facility] [id number] [address] [place] [phone] July, History of DVT (deep vein th rombosis) Z86.718 [facility] [address] [facility] [id number] [address] [place] [address] Jun, Generalized anxiety disorder F41.1 [facility] [address] [id number] [address] [place] [address] Jun, History of DVT (deep vein th rombosis) Z86.718 [place] [address] [facility] [id number] [address] [place] [address] Jun, History of DVT (deep vein th rombosis) Z86.718 [place] [address] [facility] [id number] [address] [place] [address] Jun, History of DVT (deep vein th rombosis) Z86.718 [place] [address] [id number] [address] [place] [address] Jun, History of DVT (deep vein th rombosis) Z86.718 [place] [address] [facility] [id number] [address] [place] [address] May, History of DVT (deep vein th rombosis) Z86.718 [place] [address] [facility] [id number] [address] [place] [address] May, half-way (current) use of a nticoagulants Z79.01 [place] [address] [facility] [id number] [address] [place] [phone] May, half-way (current) use of a nticoagulants Z79.01 [place] [address] [facility] [id number] [address] [place] [address] May, History of DVT (deep vein th rombosis) Z86.718 [facility] [address] [id number] [address] [place] [phone] 27 Apr, 2016 Bacterial conjunctivitis of left eye H10.9 and H/O motion sickness Z87.898 [facility] [address] [id number] [address] [place] [address] 24 Apr, 2016 History of DVT (deep vein th rombosis) Z86.718 [facility] [address] [id number] [address] [place] [address] Apr, History of DVT (deep vein th rombosis) Z86.718 [facility] [address] [id number] [address] [place] [address] 15 Apr, 2016 History of DVT (deep vein th rombosis) Z86.718 [facility] [address] [facility] [id number] [address] [place] [address] 14 Apr, 2016 termination clerk (current) use of a nticoagulants Z79.01 [facility] [address] [id number] [address] [place] [address] Mar, [facility] [address] [id number] [address] [place] [phone] Mar, half-way (current) use of a nticoagulants Z79.01 [facility] [address] [id number] [address] [place] [address] Mar, Hypertriglyceridemia E78.1 a nd half-way (current) use of anticoagulants Z79.01 [facility] [address] [id number] [address] [place] [address] Feb, termination clerk (current) use of a nticoagulants Z79.01 [facility] [address] [id number] [address] [place] [address] Feb, half-way (current) use of a nticoagulants Z79.01 [facility] [address] [id number] [address] [place] [address] Feb, half-way (current) use of a nticoagulants Z79.01 [place] [address] [id number] [address] [place] [address] Dec, [facility] [address] [id number] [address] [place] [address] Nov, [place] [address] [id number] [address] [place] [address] Nov, History of DVT (deep vein th rombosis) Z86.718 ; Tremulousness R25.1 ; Generalized anxiety disorder F41.1 ; Peripheral edema R60.9 and Hypertriglyceridemia E78.1 [place] [address] [id number] [address] [place] [address] Oct, History of DVT (deep vein th rombosis) Z86.718 [place] [address] [id number] [address] [place] [address] Oct, [place] [address] [id number] [address] [place] [address] Sep, History of DVT (deep vein th rombosis) Z86.718 [place] [address] [id number] [address] [place] [address] Sep, half-way (current) use of a nticoagulants Z79.01 [place] [address] [id number] [address] [place] [address] July, [place] [address] [id number] [address] [place] [phone] July, termination clerk (current) use of a nticoagulants Z79.01 [place] [address] [id number] [address] [place] [address] July, half-way (current) use of a nticoagulants Z79.01 [place] [address] [id number] [address] [place] [address] Jun, half-way (current) use of a nticoagulants Z79.01 [facility] [place] [address] [facility] [id number] [address] [place] [address] Jun, Coccyx pain M53.3 ; Encounte r for therapeutic drug level monitoring Z51.81 and half-way current use 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.01 [place] [address] [facility] [id number] [address] [place] [address] May, Abnormal mammogram R92.8 [facility] [place] [address] [facility] [id number] [address] [place] [address] May, [facility] [place] [address] [facility] [id number] [address] [place] [address] May, Acute vaginitis N76.0 and En counter for other screening for malignant neoplasm of breast Z12.39 [place] [address] [facility] [id number] [address] [place] [address] Apr, [place] [address] [facility] [id number] [address] [place] [address] Apr, [place] [address] [facility] [id number] [address] [place] [address] Apr, Peripheral edema R60.9 [place] [address] [facility] [id number] [address] [place] [address] Apr, half-way (current) use of a nticoagulants Z79.01 [place] [address] [id number] [address] [place] [address] Apr, Peripheral edema R60.9 and L jose martin term (current) 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 Z79.01 [place] [address] [facility] [id number] [address] [place] [address] Apr, termination clerk (current) use of a nticoagulants Z79.01 [place] [address] [facility] [id number] [address] [place] [address] Apr, [facility] [address] [id number] [address] [place] [address] Apr, termination clerk (current) use of a nticoagulants Z79.01 [facility] [address] [id number] [address] [place] [phone] Apr, Peripheral edema R60.9 [place] [address] [id number] [address] [place] [address] Mar, termination clerk (current) use of a nticoagulants Z79.01 [place] [address] [id number] [address] [place] [phone] Mar, termination clerk (current) use of a nticoagulants Z79.01 and Hypertriglyceridemia E78.1 [place] [address] [id number] [address] [place] [address] Mar, termination clerk (current) use of a nticoagulants Z79.01 [place] [address] [id number] [address] [place] [address] Mar, termination clerk (current) use of a nticoagulants Z79.01 [place] [address] [id number] [address] [place] [phone] Mar, [facility] [address] [id number] [address] [place] [address] Mar, termination clerk (current) use of a nticoagulants Z79.01 ; Hypertriglyceridemia E78.1 ; Personal history of venous thrombosis and embolism Z86.718 and Lump R22.9 [place] [address] [id number] [address] [place] [address] Mar, Personal history of venous t hrombosis and embolism Z86.718 [place] [address] [id number] [address] [place] [address] Mar, Personal history of venous t hrombosis and embolism Z86.718 [facility] [address] [id number] [address] [place] [address] Mar, [facility] [address] [id number] [address] [place] [address] Dec, Personal history of venous t hrombosis and embolism Z86.718 [facility] [address] [id number] [address] [place] [address] Dec, Personal history of venous t hrombosis and embolism V12.51 [facility] [address] [id number] [address] [place] [phone] Nov, Personal history of venous t hrombosis and embolism V12.51 [facility] [address] [id number] [address] [place] [phone] Nov, Personal history of venous t hrombosis and embolism V12.51 [facility] [address] [id number] [address] [place] [phone] Nov, Personal history of venous t hrombosis and embolism V12.51 [facility] [address] [id number] [address] [place] [phone] Nov, Personal history of venous t hrombosis and embolism V12.51 [facility] [address] [id number] [address] [place] [phone] Nov, [facility] [address] [id number] [address] [place] [phone] Oct, Dysuria 788.1 [facility] [address] [id number] [address] [place] [phone] Oct, Personal history of venous t hrombosis and embolism V12.51 [facility] [address] [id number] [address] [place] [phone] Oct, [facility] [address] [id number] [address] [place] [phone] Oct, Personal history of venous t hrombosis and embolism V12.51 [facility] [address] [id number] [address] [place] [phone] Sep, Personal history of venous t hrombosis and embolism V12.51 [facility] [address] [id number] [address] [place] [phone] Sep, Personal history of venous t hrombosis and embolism V12.51 [facility] [address] [id number] [address] [place] [phone] Aug, Personal history of venous t hrombosis and embolism V12.51 [facility] [address] [id number] [address] [place] [phone] Aug, Personal history of venous t hrombosis and embolism V12.51 [facility] [address] [id number] [address] [place] [address] Aug, Personal history of venous t hrombosis and embolism V12.51 [facility] [address] [id number] [address] [place] [address] July, Generalized anxiety disorder 300.02 ; Abdominal pain, left lower quadrant 789.04 and Personal history of venous thrombosis and embolism V12.51 [facility] [address] [id number] [address] [place] [address] Jun, [facility] [address] [id number] [address] [place] [address] Jun, [facility] [address] [id number] [address] [place] [address] May, [facility] [address] [id number] [address] [place] [address] May, [facility] [address] [id number] [address] [place] [address] May, [facility] [address] [id number] [address] [place] [address] May, [facility] [address] [id number] [address] [place] [address] May, [facility] [address] [id number] [address] [place] [address], [place] [address] May, [facility] [address] [id number] [address] [place] [address], [place] [address] May, [facility] [address] [id number] [address] [place] [address], [place] [address] May, [facility] [address] [id number] [address] [place] [address], [place] [address] Apr, [facility] [address] [id number] [address] [place] [address], [place] [address] Apr, [facility] [address] [id number] [address] [place] [address], [place] [address] Apr, [facility] [address] [id number] [address] [place] [address], [place] [address] Apr, [facility] [address] [id number] [address] [place] [address], [place] [address] Apr, [facility] [address] [id number] [address] [place] [address], [place] [address] Mar, [facility] [address] [id number] [address] [place] [address], [place] [address] Mar, [facility] [address] [id number] [address] [place] [address], [place] [address] Mar, [facility] [address] [id number] [address] [place] [address], [place] [address] Mar, [facility] [address] [id number] [address] [place] [address], [place] [address] Mar, [facility] [address] [id number] [address] [place] [address], [place] [address] Mar, [facility] [address] [id number] [address] [place] [address], [place] [address] Feb, [facility] [address] [id number] [address] [place] [address], [place] [address] Feb, [facility] [address] [id number] [address] [place] [address], [place] [address] Feb, [facility] [address] [id number] [address] [place] [address], [place] [address] Feb, [facility] [address] [id number] [address] [place] [address], [place] [address] Feb, [facility] [address] [id number] [address] [place] [address], [place] [address] Feb, [facility] [address] [id number] [address] [place] [address], [place] [address] Feb, [facility] [address] [id number] [address] [place] [address], [place] [address] Feb, [facility] [address] [id number] [address] [place] [address], [place] [address] Feb, [facility] [address] [id number] [address] [place] [address], [place] [address] Feb, [facility] [address] [id number] [address] [place] [address], [place] [address] Jan, [facility] [address] [id number] [address] [place] [address], [place] [address] Jan, [facility] [address] [id number] [address] [place] [address], [place] [address] Jan, [facility] [address] [id number] [address] [place] [address], [place] [address] Jan, [facility] [address] [id number] [address] [place] [address], [place] [address] Jan, [facility] [address] [id number] [address] [place] [address], [place] [address] Jan, [facility] [address] [id number] [address] [place] [address], [place] [address] Jan, [facility] [address] [id number] [address] [place] [address], [place] [address] Jan, [facility] [address] [id number] [address] [place] [address], [place] [address] Jan, [facility] [address] [id number] [address] [place] [address], [place] [address] Jan, [facility] [address] [id number] [address] [place] [address], [place] [address] Dec, [facility] [address] [id number] [address] [place] [address], [place] [address] Dec, [facility] [address] [id number] [address] [place] [address], [place] [address] Dec, [facility] [address] [id number] [address] [place] [address], [place] [address] Dec, [facility] [address] [id number] [address] [place] [address], [place] [address] Dec, [facility] [address] [id number] [address] [place] [address], [place] [address] Dec, [facility] [address] [id number] [address] [place] [address], [place] [address] Dec, [facility] [address] [id number] [address] [place] [address], [place] [address] Dec, [facility] [address] [id number] [address] [place] [address] Dec, [facility] [address] [id number] [address] [place] [address], [place] [address] Dec, [facility] [address] [id number] [address] [place] [address], [place] [address] Dec, [facility] [address] [id number] [address] [place] [address], [place] [address] Dec, [facility] [address] [id number] [address] [place] [address], [place] [address] Dec, [facility] [address] [id number] [address] [place] [address], [place] [address] Dec, [facility] [address] [id number] [address] [place] [address], [place] [address] Dec, [facility] [address] [id number] [address] [place] [address], [place] [address] 30 Nov, 2013 [facility] [address] [id number] [address] [place] [address], [place] [address] 30 Nov, 2013 [facility] [address] [id number] [address] [place] [address], [place] [address] 26 Nov, 2013 [facility] [address] [id number] [address] [place] [address], [place] [address] 26 Nov, 2013 [facility] [address] [id number] [address] [place] [address], [place] [address] 24 Nov, 2013 [facility] [address] [id number] [address] [place] [address], [place] [address] 24 Nov, 2013 [facility] [address] [id number] [address] [place] [address], [place] [address] 23 Nov, 2013 [facility] [address] [id number] [address] [place] [address], [place] [address] 23 Nov, 2013 [facility] [address] [id number] [address] [place] [address], [place] [address] 18 Nov, 2013 [facility] [address] [id number] [address] [place] [address], [place] [address] 18 Sep, 2013 [facility] [address] [id number] [address] [place] [address], [place] [address] 17 Nov, 2013 [facility] [address] [id number] [address] [place] [address], [place] [address] 17 Nov, 2013 [facility] [address] [id number] [address] [place] [address], [place] [address] 11 Nov, 2013 [facility] [address] [id number] [facility] [place] [address] 11 Nov, 2013 [facility] [address] [id number] [facility] [place] [address] Nov, 2013 [facility] [address] [id number] [address] [place] [address], [place] [address] 10 Nov, 2013 [facility] [address] [id number] [address] [place] [address], [place] [address] Nov, 2013 [facility] [address] [id number] [address] [place] [address], [place] [address] Nov, [facility] [address] [id number] [address] [place] [address], [place] [address] Sep, [facility] [address] [id number] [address] [place] [address], [place] [address] Sep, [facility] [address] [id number] [address] [place] [address], [place] [address] Sep, [facility] [address] [id number] [address] [place] [address], [place] [address] Sep, [facility] [address] [id number] [address] [place] [address], [place] [address] Sep, [facility] [address] [id number] [address] [place] [address], [place] [address] Sep, [facility] [address] [id number] [address] [place] [address], [place] [address] Aug, [facility] [address] [id number] [address] [place] [address], [place] [address] Aug, [facility] [address] [id number] [address] [place] [address], [place] [address] Aug, [facility] [address] [id number] [address] [place] [address], [place] [address] Aug, [facility] [address] [id number] [address] [place] [address], [place] [address] 24 Aug, 2013 [facility] [address] [id number] [address] [place] [address], [place] [address] Aug, [facility] [address] [id number] [address] [place] [address], [place] [address] Aug, [facility] [address] [id number] [address] [place] [address], [place] [address] Aug, [facility] [address] [id number] [address] [place] [address], [place] [address] Aug, [facility] [address] [id number] [address] [place] [address], [place] [address] Aug, [facility] [address] [id number] [address] [place] [address], [place] [address] Aug, [facility] [address] [id number] [address] [place] [address], [place] [address] July, [facility] [address] [id number] [address] [place] [address], [place] [address] July, [facility] [address] [id number] [address] [place] [address], [place] [address] Jun, [facility] [address] [id number] [address] [place] [address], [place] [address] Jun, [facility] [address] [id number] [address] [place] [address], [place] [address] Jun, [facility] [address] [id number] [address] [place] [address], [place] [address] Jun, [facility] [address] [id number] [address] [place] [address], [place] [address] Jun, [facility] [address] [id number] [address] [place] [address], [place] [address] Jun, [facility] [address] [id number] [address] [place] [address], [place] [address] 15 Jun, 2013 [facility] [address] [id number] [facility] [place] [address] 15 Jun, 2013 [facility] [address] [id number] [facility] [place] [address] 11 Jun, 2013 [facility] [address] [id number] [facility] [place] [address] Jun, [facility] [address] [id number] [facility] [place] [address] Jun, [facility] [address] [id number] [facility] [place] [address] Jun, [facility] [address] [id number] [facility] [place] [address] May, [facility] [address] [id number] [address] [place] [address], [place] [address] May, [facility] [address] [id number] [address] [place] [address], [place] [address] May, [facility] [address] [id number] [address] [place] [address], [place] [address] May, [facility] [address] [id number] [address] [place] [address], [place] [address] May, [facility] [address] [id number] [address] [place] [address], [place] [address] May, [facility] [address] [id number] [address] [place] [address], [place] [address] May, [facility] [address] [id number] [address] [place] [address], [place] [address] 06 May, 2013 [facility] [address] [id number] [address] [place] [address], [place] [address] May, [facility] [address] [id number] [address] [place] [address], [place] [address] May, [facility] [address] [id number] [address] [place] [address], [place] [address] May, [facility] [address] [id number] [address] [place] [address], [place] [address] May, [facility] [address] [id number] [address] [place] [address], [place] [address] Apr, [facility] [address] [id number] [address] [place] [address], [place] [address] Apr, [facility] [address] [id number] [address] [place] [address], [place] [address] Apr, [facility] [address] [id number] [address] [place] [address], [place] [address] Apr, [facility] [address] [id number] [address] [place] [address], [place] [address] Apr, [facility] [address] [id number] [address] [place] [address], [place] [address] Apr, [facility] [address] [id number] [address] [place] [address], [place] [address] Apr, [facility] [address] [id number] [address] [place] [address], [place] [address] Apr, [facility] [address] [id number] [address] [place] [address], [place] [address] Apr, [facility] [address] [id number] [address] [place] [address], [place] [address] Apr, [facility] [address] [id number] [address] [place] [address], [place] [address] Apr, [facility] [address] [id number] [address] [place] [address], [place] [address] Apr, [facility] [address] [id number] [address] [place] [address], [place] [address] Apr, [facility] [address] [id number] [address] [place] [address], [place] [address] Apr, [facility] [address] [id number] [address] [place] [address], [place] [address] Apr, [facility] [address] [id number] [address] [place] [address], [place] [address] Apr, [facility] [address] [id number] [address] [place] [address], [place] [address] Apr, [facility] [address] [id number] [address] [place] [address], [place] [address] Jan, [facility] [address] [id number] [address] [place] [address], [place] [address] Jan, [facility] [address] [id number] [address] [place] [address], [place] [address] Jan, [facility] [address] [id number] [address] [place] [address], [place] [address] Jan, [facility] [address] [id number] [address] [place] [address], [place] [address] Jan, [facility] [address] [id number] [address] [place] [address], [place] [address] Jan, [facility] [address] [id number] [address] [place] [address], [place] [address] Jan, [facility] [address] [id number] [address] [place] [address], [place] [address] Dec, [facility] [address] [id number] [address] [place] [address] Dec, [facility] [address] [id number] [address] [place] [address], [place] [address] Dec, [facility] [address] [id number] [address] [place] [address], [place] [address] Nov, [facility] [address] [id number] [address] [place] [address], [place] [address] Nov, [facility] [address] [id number] [address] [place] [address] [place] [address] 05 Nov, 2012 [facility] [address] [id number] [address] [place] [address], [place] [address] Nov, [facility] [address] [id number] [address] [place] [address], [place] [address] Oct, [facility] [address] [id number] [address] [place] [address], [place] [address] Oct, [facility] [address] [id number] [address] [place] [address], [place] [address] Oct, [facility] [address] [id number] [address] [place] [address], [place] [address] Oct, [facility] [address] [id number] [address] [place] [address], [place] [address] Oct, [facility] [address] [id number] [address] [place] [address], [place] [address] Sep, [facility] [address] [id number] [address] [place] [address], [place] [address] Sep, [facility] [address] [id number] [address] [place] [address], [place] [address] Sep, [facility] [address] [id number] [address] [place] [address], [place] [address] Sep, [facility] [address] [id number] [address] [place] [address], [place] [address] Sep, [facility] [address] [id number] [address] [place] [address], [place] [address] Sep, [facility] [address] [id number] [address] [place] [address], [place] [address] Sep, [facility] [address] [id number] [address] [place] [address], [place] [address] Aug, [facility] [address] [id number] [address] [place] [address], [place] [address] Aug, [facility] [address] [id number] [address] [place] [address], [place] [address] July, [facility] [address] [id number] [address] [place] [address], [place] [address] Jun, [facility] [address] [id number] [address] [place] [address], [place] [address] Jun, [facility] [address] [id number] [address] [place] [address], [place] [address] Jun, [facility] [address] [id number] [address] [place] [address], [place] [address] Apr, [facility] [address] [id number] [address] [place] [address], [place] [address] Apr, [facility] [address] [id number] [address] [place] [address], [place] [address] Apr, [facility] [address] [id number] [address] [place] [address], [place] [address] Mar, [facility] [address] [id number] [address] [place] [address], [place] [address] Mar, [facility] [address] [id number] [address] [place] [address], [place] [address] Mar, [facility] [address] [id number] [address] [place] [address], [place] [address] Mar, [facility] [address] [id number] [address] [place] [address], [place] [address] Mar, [facility] [address] [id number] [address] [place] [address], [place] [address] Feb, [facility] [address] [id number] [address] [place] [address], [place] [address] Feb, [facility] [address] [id number] [address] [place] [address], [place] [address] Jan, [facility] [address] [id number] [address] [place] [address] Jan, [facility] [address] [id number] [address] [place] [address], [place] [address] 13 Jan, 2012 [facility] [address] [id number] [address] [place] [address] Jan, [facility] [address] [id number] [address] [place] [id number] 07 Jan, 2012 [facility] [address] [id number] [address] [place] [id number] 07 Jan, 2012 [facility] [address] [id number] [address] [place] [address], [place] [address] Jan, [facility] [address] [id number] [address] [place] [id number] 31 Dec, 2011 [facility] [address] [id number] [address] [place] [id number] 31 Dec, 2011 [facility] [address] [id number] [address] [place] [id number] 30 Dec, 2011 [facility] [address] [id number] [address] [place] [id number] 30 Dec, 2011 [facility] [address] [id number] [address] [place] [id number] 30 Dec, 2011 [facility] [address] [id number] [address] [place] [id number] 30 Dec, 2011 [facility] [address] [id number] [address] [place] [id number] 30 Dec, 2011 [facility] [address] [id number] [address] [place] [address], [place] [address] 30 Dec, 2011 [facility] [address] [id number] [address] [place] [id number] Dec, [facility] [address] [id number] [address] [place] [id number] Dec, [facility] [address] [id number] [address] [place] [address], [place] [address] Oct, [facility] [address] [id number] [address] [place] [address], [place] [address] Oct, [facility] [address] [id number] [address] [place] [address], [place] [address] Aug, [facility] [address] [id number] [address] [place] [address], [place] [address] Aug, [facility] [address] [id number] [address] [place] [address], [place] [address] July, [facility] [address] [id number] [address] [place] [address], [place] [address] Jun, [facility] [address] [id number] [address] [place] [address], [place] [address] Jun, [facility] [address] [id number] [address] [place] [address], [place] [address] May, [facility] [address] [id number] [address] [place] [address], [place] [address] Apr, [facility] [address] [id number] [address] [place] [address], [place] [address] Apr, [facility] [address] [id number] [address] [place] [address], [place] [address] Mar, [facility] [address] [id number] [address] [place] [address], [place] [address] Mar, [facility] [address] [id number] [address] [place] [address], [place] [id number] Feb, [facility] [address] [id number] [address] [place] [address], [place] [id number] 15 Feb, 2011 [facility] [address] [id number] [address] [place] [address], [place] [phone] Feb, [facility] [address] [id number] [address] [place] [address], [place] [phone] Feb, [facility] [address] [id number] [address] [place] [phone] Jan, [facility] [address] [id number] [address] [place] [id number] Dec, [facility] [address] [id number] [address] [place] [phone] Feb, [facility] [address] [id number] [address] [place] [id number] Feb, [facility] [address] [id number] [address] [place] [phone] Feb, [facility] [address] [id number] [address] [place] [phone] Feb, [facility] [address] [id number] [address] [place] [phone] Dec, [facility] [address] [id number] [address] [place] [phone] Dec, [facility] [address] [id number] [address] [place] [phone] Oct, [facility] [address] [id number] [address] [place] [phone] Jun, [facility] [address] [id number] [address] [place] [phone] Feb, [facility] [address] [id number] [address] [place] [id number] Feb, [facility] [address] [id number] [address] [place] [phone] Feb, [facility] [address] [id number] [address] [place] [id number] Dec, IMMUNIZATIONS No Known Immunizations SOCIAL HISTORY Never Assessed REASON FOR VISIT PLAN OF CARE VITAL SIGNS MEDICATIONS Unknown Medications RESULTS No Results PROCEDURES Procedure Date Ordered Result Body Site PROTHROMBIN TIME June 09, 2014 VENIPCHRIS MURRAY* June 09, 2014 INSTRUCTIONS MEDICATIONS ADMINISTERED No Known Medications [...]
--- OUTSIDE RECORDS SUMMARY | 2019-10-19 12:37 | XMS REPORT ---
Author Author KIANAMary Jane Organization 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 Name Role Phone ASHLEY BRUNO Unavailable PROBLEMS Type Condition ICD9-CM Code ZNK20-AK Code Onset Dates Condition S tatus SNOMED Code Problem Thyroid follicular adenoma D34 Act phylicia 948541197 Problem History of DVT (deep vein thrombosis) Z86.718 Active 827166599 Problem Factor V Leiden D68.51 Active 3070 93887 Problem rn long term care (current) use of anticoagulants Z79.01 Active 060583764 Problem Hypertriglyceridemia E78.1 Active 208431904 Problem 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 Active 941350992 Problem Pelvic pain R10.2 Active 75018095 Problem Peripheral edema R60.9 Active 271 079076 Problem Moderate episode of recurrent major depressive disorder F33.1 Active 317396345 Problem Presence of IVC filter Z95.828 Active 576040612 Problem Vitamin D deficiency E55.9 Active 34855595 Problem Generalized anxiety disorder F41.1 A ctive 523023802 Problem Excessive daytime sleepiness G47.19 A ctive 570421613263 Problem Gastroesophageal reflux disease, esophagitis pre sence not specified K21.9 Active 570394139 Problem Thyroid nodule E04.1 Active 55237 5005 Problem Morbid obesity E66.01 Active 90867 6002 ALLERGIES No Information ENCOUNTERS Encounter Location Date Diagnosis [facility] [address] [facility] [id number] [address] [place] [phone] Sep, Hypertriglyceridemia E78.1 a nd Vitamin D deficiency E55.9 [facility] [address] [facility] [id number] [address] [place] [id number] Sep, [facility] [address] [facility] [id number] [address] [place] [id number] Sep, Morbid obesity E66.01 ; Mode rate episode of recurrent major depressive disorder F33.1 ; Hypertriglyceridemia E78.1 and Vitamin D deficiency E55.9 [facility] [address] [facility] [id number] [address] [place] [id number] Aug, [facility] [address] [facility] [id number] [address] [place] [phone] July, [facility] [address] [facility] [id number] [place] [phone] July, [facility] [address] [id number] [address] [place] [id number] Jun, [facility] [address] [place] [id number] [place] [phone] Jun, [facility] [address] [place] [id number] [place] [phone] Jun, Closed compression fracture of L3 lumbar vertebra with routine healing, subsequent encounter S32.030D and Drug-induced constipation K59.03 [facility] [address] [facility] [id number] [address] [place] [phone] Jun, [facility] [address] [place] [id number] [place] [phone] Jun, [facility] [address] [place] [id number] [address] [place] [phone] Apr, [facility] [address] [facility] [id number] [address] [place] [address] Apr, Morbid obesity E66.01 [facility] [address] [facility] [id number] [address] [place] [address] Apr, Morbid obesity E66.01 ; Hype rtriglyceridemia E78.1 ; Gastroesophageal reflux disease, esophagitis presence not specified K21.9 [address]25.50 [facility] [address] [facility] [id number] [address] [place] [address] Feb, [facility] [address] [place] [id number] [address] [place] [id number] 06 Feb, 2018 [facility] [address] [facility] [id number] [address] [place] [address] Jan, Acute bacterial conjunctivit is H10.30 [facility] [address] [facility] [id number] [address] [place] [id number] 08 Dec, 2017 [facility] [address] [id number] 04 Dec, 2017 [facility] [address] [facility] [id number] [place] [id number] 17 Nov, 2017 [facility] [address] [id number] 07 Nov, 2017 Obstructive sleep apnea G47. 33 ; Morbid obesity E66.01 and Gastroesophageal reflux disease, esophagitis presence not specified K21.9 [facility] [address] [place] [address] [id number] [address] [place] [id number] 06 Nov, 2017 Encounter for examination of eyes and vision without abnormal findings Z01.00 [facility] [address] [place] [id number] [address] [place] [id number] 31 Oct, 2017 Thyroid nodule E04.1 and Scr eening for breast cancer Z12.31 [facility] [address] [place] [id number] [address] [place] [id number] 23 Oct, 2017 History of DVT (deep vein th rombosis) Z86.718 ; Thyroid nodule E04.1 and Gastroesophageal reflux disease, esophagitis presence not specified K21.9 [facility] [address] [facility] [id number] [address] [place] [id number] Oct, [facility] [address] [place] [id number] [place] [address] Sep, [facility] [address] [place] [id number] [address] [place] [address] Aug, [facility] [address] [address] Aug, [place] [address] [place] [id number] [address] [place] [address] Aug, Acute pain of left shoulder M25.512 and Thyroid nodule E04.1 [place] [address] [place] [id number] [address] [place] [address] July, Superior glenoid labrum lesi on of left shoulder, subsequent encounter S43.432D [place] [address] [place] [id number] [address] [place] [address] Jun, History of DVT (deep vein th rombosis) Z86.718 [place] [address] [place] [id number] [place] [phone] Jun, History of DVT (deep vein th rombosis) Z86.718 [place] [address] [place] [id number] [address] [place] [address] Jun, Impingement syndrome, should er, left M75.42 [place] [address] [place] [id number] [address] [place] [phone] May, Subacromial bursitis of left shoulder joint M75.52 [place] [address] [place] [id number] [address] [place] [address] May, [place] [address] [place] [id number] [address] [place] [address] May, Hypertriglyceridemia E78.1 ; jail (current) use of anticoagulants Z79.01 and Excessive daytime sleepiness G47.19 [place] [address] [facility] [id number] [address] [place] [address] May, History of DVT (deep vein th rombosis) Z86.718 ; Generalized anxiety disorder F41.1 ; Hypertriglyceridemia E78.1 ; rn long term care (current) use of anticoagulants Z79.01 ; Subacromial bursitis of left shoulder joint M75.52 and Excessive daytime sleepiness G47.19 [place] [address] [id number] [address] [place] [address] May, [facility] [address] [id number] [address] [place] [address] May, jail (current) use of a nticoagulants Z79.01 [facility] [address] [id number] [address] [place] [address] Apr, rn long term care (current) use of a nticoagulants Z79.01 [facility] [address] [id number] [address] [place] [id number] Apr, rn long term care (current) use of a nticoagulants Z79.01 [facility] [address] [id number] [address] [place] [phone] Apr, rn long term care (current) use of a nticoagulants Z79.01 [facility] [address] [id number] [address] [place] [address] Apr, [facility] [address] [id number] [address] [place] [address] Apr, rn long term care (current) use of a nticoagulants Z79.01 [facility] [address] [id number] [address] [place] [id number] 13 Apr, 2017 rn long term care (current) use of a nticoagulants Z79.01 [facility] [address] [id number] [address] [place] [address] Apr, jail (current) use of a nticoagulants Z79.01 [facility] [address] [id number] [address] [place] [phone] Apr, jail (current) use of a nticoagulants Z79.01 [facility] [address] [id number] [address] [place] [id number] 07 Apr, 2017 jail (current) use of a nticoagulants Z79.01 [facility] [address] [id number] [address] [place] [phone] Apr, jail (current) use of a nticoagulants Z79.01 [facility] [address] [id number] [address] [place] [id number] Mar, rn long term care (current) use of a nticoagulants Z79.01 [facility] [address] [facility] [id number] [address] [place] [address] Mar, [facility] [address] [id number] [address] [place] [address] Mar, jail (current) use of a nticoagulants Z79.01 [facility] [address] [id number] [place] [address] [id number] Jan, Dental examination Z01.20 [facility] [address] [id number] [place] [id number] Jan, [facility] [address] [facility] [id number] [address] [place] [phone] Jan, jail (current) use of a nticoagulants Z79.01 [facility] [address] [facility] [id number] [address] [place] [address] Jan, History of DVT (deep vein th rombosis) Z86.718 [place] [address] [facility] [id number] [address] [place] [address] Jan, Generalized anxiety disorder F41.1 and Peripheral edema R60.9 [facility] [address] [id number] [address] [place] [address] Nov, History of DVT (deep vein th rombosis) Z86.718 [facility] [address] [facility] [id number] [address] [place] [id number] Nov, rn long term care (current) use of a nticoagulants Z79.01 [facility] [address] [facility] [id number] [address] [place] [id number] Nov, Acute non-recurrent maxillar y sinusitis J01.00 [place] [address] [facility] [id number] [address] [place] [address] Oct, jail (current) use of a nticoagulants Z79.01 [place] [address] [facility] [id number] [address] [place] [address] Oct, Personal history of venous t hrombosis and embolism Z86.718 [place] [address] [facility] [id number] [address] [place] [address] Sep, [place] [address] [facility] [id number] [place] [address] Sep, Personal history of venous t hrombosis and embolism Z86.718 [place] [address] [place] [id number] [address] [place] [address] Sep, rn long term care (current) use of a nticoagulants Z79.01 [place] [address] [place] [id number] [address] [place] [address] Sep, jail (current) use of a nticoagulants Z79.01 [place] [address] [place] [id number] [address] [place] [address] Sep, Generalized anxiety disorder F41.1 and History of DVT (deep vein thrombosis) Z86.718 [place] [address] [place] [id number] [address] [place] [address] Aug, History of DVT (deep vein th rombosis) Z86.718 ; Generalized anxiety disorder F41.1 ; rn long term care (current) use of anticoagulants Z79.01 ; Pelvic pain R10.2 ; Hypertriglyceridemia E78.1 ; Excessive daytime sleepiness G47.19 ; Colon cancer screening Z12.11 ; Screening for breast cancer Z12.39 ; Peripheral edema R60.9 and Gastroesophageal reflux disease, esophagitis presence not specified K21.9 [place] [address] [place] [id number] [address] [place] [address] Aug, [facility] [address] [id number] [address] [place] [address] July, [facility] [address] [facility] [id number] [address] [place] [address] July, History of DVT (deep vein th rombosis) Z86.718 [facility] [address] [facility] [id number] [address] [place] [address] Jun, Generalized anxiety disorder F41.1 [facility] [address] [id number] [address] [place] [id number] Jun, History of DVT (deep vein th rombosis) Z86.718 [place] [address] [facility] [id number] [address] [place] [address] Jun, History of DVT (deep vein th rombosis) Z86.718 [place] [address] [facility] [id number] [address] [place] [address] Jun, History of DVT (deep vein th rombosis) Z86.718 [place] [address] [id number] [address] [place] [address] Jun, History of DVT (deep vein th rombosis) Z86.718 [place] [address] [facility] [id number] [address] [place] [address] May, History of DVT (deep vein th rombosis) Z86.718 [place] [address] [facility] [id number] [address] [place] [address] May, jail (current) use of a nticoagulants Z79.01 [place] [address] [facility] [id number] [address] [place] [address] May, jail (current) use of a nticoagulants Z79.01 [place] [address] [facility] [id number] [address] [place] [address] May, History of DVT (deep vein th rombosis) Z86.718 [facility] [address] [id number] [address] [place] [address] 27 Apr, 2016 Bacterial conjunctivitis of left eye H10.9 and H/O motion sickness Z87.898 [facility] [address] [id number] [address] [place] [id number] 24 Apr, 2016 History of DVT (deep vein th rombosis) Z86.718 [facility] [address] [id number] [address] [place] [address] Apr, History of DVT (deep vein th rombosis) Z86.718 [facility] [address] [id number] [address] [place] [address] 15 Apr, 2016 History of DVT (deep vein th rombosis) Z86.718 [facility] [address] [facility] [id number] [address] [place] [address] 14 Apr, 2016 rn long term care (current) use of a nticoagulants Z79.01 [facility] [address] [id number] [address] [place] [address] Mar, [facility] [address] [id number] [address] [place] [id number] Mar, jail (current) use of a nticoagulants Z79.01 [facility] [address] [id number] [address] [place] [address] Mar, Hypertriglyceridemia E78.1 a nd jail (current) use of anticoagulants Z79.01 [facility] [address] [id number] [address] [place] [address] Feb, rn long term care (current) use of a nticoagulants Z79.01 [facility] [address] [id number] [address] [place] [address] Feb, jail (current) use of a nticoagulants Z79.01 [facility] [address] [id number] [address] [place] [address] Feb, jail (current) use of a nticoagulants Z79.01 [place] [address] [id number] [address] [place] [address] Dec, [facility] [address] [id number] [address] [place] [address] Nov, [place] [address] [id number] [address] [place] [address] Nov, History of DVT (deep vein th rombosis) Z86.718 ; Tremulousness R25.1 ; Generalized anxiety disorder F41.1 ; Peripheral edema R60.9 and Hypertriglyceridemia E78.1 [place] [address] [id number] [address] [place] [address] Oct, History of DVT (deep vein th rombosis) Z86.718 [place] [address] [id number] [address] [place] [address] Oct, [place] [address] [id number] [address] [place] [address] Sep, History of DVT (deep vein th rombosis) Z86.718 [place] [address] [id number] [address] [place] [address] Sep, jail (current) use of a nticoagulants Z79.01 [place] [address] [id number] [address] [place] [address] July, [place] [address] [id number] [address] [place] [address] July, rn long term care (current) use of a nticoagulants Z79.01 [place] [address] [id number] [address] [place] [address] July, jail (current) use of a nticoagulants Z79.01 [place] [address] [id number] [address] [place] [address] Jun, jail (current) use of a nticoagulants Z79.01 [facility] [place] [address] [facility] [id number] [address] [place] [address] Jun, Coccyx pain M53.3 ; Encounte r for therapeutic drug level monitoring Z51.81 and jail current use 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.01 [place] [address] [facility] [id number] [address] [place] [address] May, Abnormal mammogram R92.8 [facility] [place] [address] [facility] [id number] [address] [place] [address] May, [facility] [place] [address] [facility] [id number] [address] [place] [address] May, Acute vaginitis N76.0 and En counter for other screening for malignant neoplasm of breast Z12.39 [place] [address] [facility] [id number] [address] [place] [address] Apr, [place] [address] [facility] [id number] [address] [place] [address] Apr, [place] [address] [facility] [id number] [address] [place] [address] Apr, Peripheral edema R60.9 [place] [address] [facility] [id number] [address] [place] [address] Apr, jail (current) use of a nticoagulants Z79.01 [place] [address] [id number] [address] [place] [address] Apr, Peripheral edema R60.9 and L jose martin term (current) 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 Z79.01 [place] [address] [facility] [id number] [address] [place] [address] Apr, rn long term care (current) use of a nticoagulants Z79.01 [place] [address] [facility] [id number] [address] [place] [id number] Apr, [facility] [address] [id number] [address] [place] [address] Apr, rn long term care (current) use of a nticoagulants Z79.01 [facility] [address] [id number] [address] [place] [address] Apr, Peripheral edema R60.9 [place] [address] [id number] [address] [place] [address] Mar, rn long term care (current) use of a nticoagulants Z79.01 [place] [address] [id number] [address] [place] [address] Mar, rn long term care (current) use of a nticoagulants Z79.01 and Hypertriglyceridemia E78.1 [place] [address] [id number] [address] [place] [address] Mar, rn long term care (current) use of a nticoagulants Z79.01 [place] [address] [id number] [address] [place] [id number] Mar, rn long term care (current) use of a nticoagulants Z79.01 [place] [address] [id number] [address] [place] [address] Mar, [facility] [address] [id number] [address] [place] [id number] Mar, rn long term care (current) use of a nticoagulants Z79.01 ; Hypertriglyceridemia E78.1 ; Personal history of venous thrombosis and embolism Z86.718 and Lump R22.9 [place] [address] [id number] [address] [place] [address] Mar, Personal history of venous t hrombosis and embolism Z86.718 [place] [address] [id number] [address] [place] [address] Mar, Personal history of venous t hrombosis and embolism Z86.718 [facility] [address] [id number] [address] [place] [address] Mar, [facility] [address] [id number] [address] [place] [address] Dec, Personal history of venous t hrombosis and embolism Z86.718 [facility] [address] [id number] [address] [place] [id number] Dec, Personal history of venous t hrombosis and embolism V12.51 [facility] [address] [id number] [address] [place] [id number] Nov, Personal history of venous t hrombosis and embolism V12.51 [facility] [address] [id number] [address] [place] [address] Nov, Personal history of venous t hrombosis and embolism V12.51 [facility] [address] [id number] [address] [place] [address] Nov, Personal history of venous t hrombosis and embolism V12.51 [facility] [address] [id number] [address] [place] [id number] Nov, Personal history of venous t hrombosis and embolism V12.51 [facility] [address] [id number] [address] [place] [address] Nov, [facility] [address] [id number] [address] [place] [address] Oct, Dysuria [address]88[address] [facility] [address] [id number] [address] [place] [id number] Oct, Personal history of venous t hrombosis and embolism V12.51 [facility] [address] [id number] [address] [place] [id number] Oct, [facility] [address] [id number] [address] [place] [id number] Oct, Personal history of venous t hrombosis and embolism V12.51 [facility] [address] [id number] [address] [place] [id number] Sep, Personal history of venous t hrombosis and embolism V12.51 [facility] [address] [id number] [address] [place] [id number] Sep, Personal history of venous t hrombosis and embolism V12.51 [facility] [address] [id number] [address] [place] [id number] Aug, Personal history of venous t hrombosis and embolism V12.51 [facility] [address] [id number] [address] [place] [phone] Aug, Personal history of venous t hrombosis and embolism V12.51 [facility] [address] [id number] [address] [place] [phone] Aug, Personal history of venous t hrombosis and embolism V12.51 [facility] [address] [id number] [address] [place] [id number] July, Generalized anxiety disorder 300.02 ; Abdominal pain, left lower quadrant 789.04 and Personal history of venous thrombosis and embolism V12.51 [facility] [address] [id number] [address] [place] [id number] Jun, [facility] [address] [id number] [address] [place] [id number] Jun, [facility] [address] [id number] [address] [place] [phone] May, [facility] [address] [id number] [address] [place] [address] May, [facility] [address] [id number] [address] [place] [address] May, [facility] [address] [id number] [address] [place] [address] May, [facility] [address] [id number] [address] [place] [address] May, [facility] [address] [id number] [address] [place] [address], [place] [address] May, [facility] [address] [id number] [address] [place] [address], [place] [address] May, [facility] [address] [id number] [address] [place] [address], [place] [address] May, [facility] [address] [id number] [address] [place] [address], [place] [address] Apr, [facility] [address] [id number] [address] [place] [address], [place] [address] Apr, [facility] [address] [id number] [address] [place] [address], [place] [address] Apr, [facility] [address] [id number] [address] [place] [address], [place] [address] Apr, [facility] [address] [id number] [address] [place] [address], [place] [address] Apr, [facility] [address] [id number] [address] [place] [address], [place] [address] Mar, [facility] [address] [id number] [address] [place] [address], [place] [address] Mar, [facility] [address] [id number] [address] [place] [address], [place] [address] Mar, [facility] [address] [id number] [address] [place] [address], [place] [address] Mar, [facility] [address] [id number] [address] [place] [address], [place] [address] Mar, [facility] [address] [id number] [address] [place] [address], [place] [address] Mar, [facility] [address] [id number] [address] [place] [address], [place] [address] Feb, [facility] [address] [id number] [address] [place] [address], [place] [address] Feb, [facility] [address] [id number] [address] [place] [address], [place] [address] Feb, [facility] [address] [id number] [address] [place] [address], [place] [address] Feb, [facility] [address] [id number] [address] [place] [address], [place] [address] Feb, [facility] [address] [id number] [address] [place] [address], [place] [address] Feb, [facility] [address] [id number] [address] [place] [address], [place] [address] Feb, [facility] [address] [id number] [address] [place] [address], [place] [address] Feb, [facility] [address] [id number] [address] [place] [address], [place] [address] Feb, [facility] [address] [id number] [address] [place] [address], [place] [address] Feb, [facility] [address] [id number] [address] [place] [address], [place] [address] Jan, [facility] [address] [id number] [address] [place] [address], [place] [address] Jan, [facility] [address] [id number] [address] [place] [address], [place] [address] Jan, [facility] [address] [id number] [address] [place] [address], [place] [address] Jan, [facility] [address] [id number] [address] [place] [address], [place] [address] Jan, [facility] [address] [id number] [address] [place] [address], [place] [address] Jan, [facility] [address] [id number] [address] [place] [address], [place] [address] Jan, [facility] [address] [id number] [address] [place] [address], [place] [address] Jan, [facility] [address] [id number] [address] [place] [address], [place] [address] Jan, [facility] [address] [id number] [address] [place] [address], [place] [address] Jan, [facility] [address] [id number] [address] [place] [address], [place] [address] Dec, [facility] [address] [id number] [address] [place] [address], [place] [address] Dec, [facility] [address] [id number] [address] [place] [address], [place] [address] Dec, [facility] [address] [id number] [address] [place] [address], [place] [address] Dec, [facility] [address] [id number] [address] [place] [address], [place] [address] Dec, [facility] [address] [id number] [address] [place] [address], [place] [address] Dec, [facility] [address] [id number] [address] [place] [address], [place] [address] Dec, [facility] [address] [id number] [address] [place] [address], [place] [address] Dec, [facility] [address] [id number] [address] [place] [address] Dec, [facility] [address] [id number] [address] [place] [address], [place] [address] Dec, [facility] [address] [id number] [address] [place] [address], [place] [address] Dec, [facility] [address] [id number] [address] [place] [address], [place] [address] Dec, [facility] [address] [id number] [address] [place] [address], [place] [address] Dec, [facility] [address] [id number] [address] [place] [address], [place] [address] Dec, [facility] [address] [id number] [address] [place] [address], [place] [address] Dec, [facility] [address] [id number] [address] [place] [address], [place] [address] 30 Nov, 2013 [facility] [address] [id number] [address] [place] [address], [place] [address] 30 Nov, 2013 [facility] [address] [id number] [address] [place] [address], [place] [address] 26 Nov, 2013 [facility] [address] [id number] [address] [place] [address], [place] [address] 26 Nov, 2013 [facility] [address] [id number] [address] [place] [address], [place] [address] 24 Nov, 2013 [facility] [address] [id number] [address] [place] [address], [place] [address] 24 Nov, 2013 [facility] [address] [id number] [address] [place] [address], [place] [address] 23 Nov, 2013 [facility] [address] [id number] [address] [place] [address], [place] [address] 23 Nov, 2013 [facility] [address] [id number] [address] [place] [address], [place] [address] 18 Nov, 2013 [facility] [address] [id number] [address] [place] [address], [place] [address] 18 Sep, 2013 [facility] [address] [id number] [address] [place] [address], [place] [address] 17 Nov, 2013 [facility] [address] [id number] [address] [place] [address], [place] [address] 17 Nov, 2013 [facility] [address] [id number] [address] [place] [address], [place] [address] 11 Nov, 2013 [facility] [address] [id number] [facility] [place] [address] 11 Nov, 2013 [facility] [address] [id number] [facility] [place] [address] Nov, 2013 [facility] [address] [id number] [address] [place] [address], [place] [address] 10 Nov, 2013 [facility] [address] [id number] [address] [place] [address], [place] [address] Nov, 2013 [facility] [address] [id number] [address] [place] [address], [place] [address] Nov, [facility] [address] [id number] [address] [place] [address], [place] [address] Sep, [facility] [address] [id number] [address] [place] [address], [place] [address] Sep, [facility] [address] [id number] [address] [place] [address], [place] [address] Sep, [facility] [address] [id number] [address] [place] [address], [place] [address] Sep, [facility] [address] [id number] [address] [place] [address], [place] [address] Sep, [facility] [address] [id number] [address] [place] [address], [place] [address] Sep, [facility] [address] [id number] [address] [place] [address], [place] [address] Aug, [facility] [address] [id number] [address] [place] [address], [place] [address] Aug, [facility] [address] [id number] [address] [place] [address], [place] [address] Aug, [facility] [address] [id number] [address] [place] [address], [place] [address] Aug, [facility] [address] [id number] [address] [place] [address], [place] [address] 24 Aug, 2013 [facility] [address] [id number] [address] [place] [address], [place] [address] Aug, [facility] [address] [id number] [address] [place] [address], [place] [address] Aug, [facility] [address] [id number] [address] [place] [address], [place] [address] Aug, [facility] [address] [id number] [address] [place] [address], [place] [address] Aug, [facility] [address] [id number] [address] [place] [address], [place] [address] Aug, [facility] [address] [id number] [address] [place] [address], [place] [address] Aug, [facility] [address] [id number] [address] [place] [address], [place] [address] July, [facility] [address] [id number] [address] [place] [address], [place] [address] July, [facility] [address] [id number] [address] [place] [address], [place] [address] Jun, [facility] [address] [id number] [address] [place] [address], [place] [address] Jun, [facility] [address] [id number] [address] [place] [address], [place] [address] Jun, [facility] [address] [id number] [address] [place] [address], [place] [address] Jun, [facility] [address] [id number] [address] [place] [address], [place] [address] Jun, [facility] [address] [id number] [address] [place] [address], [place] [address] Jun, [facility] [address] [id number] [address] [place] [address], [place] [address] 15 Jun, 2013 [facility] [address] [id number] [facility] [place] [address] 15 Jun, 2013 [facility] [address] [id number] [facility] [place] [address] 11 Jun, 2013 [facility] [address] [id number] [facility] [place] [address] Jun, [facility] [address] [id number] [facility] [place] [address] Jun, [facility] [address] [id number] [facility] [place] [address] Jun, [facility] [address] [id number] [facility] [place] [address] May, [facility] [address] [id number] [address] [place] [address], [place] [address] May, [facility] [address] [id number] [address] [place] [address], [place] [address] May, [facility] [address] [id number] [address] [place] [address], [place] [address] May, [facility] [address] [id number] [address] [place] [address], [place] [address] May, [facility] [address] [id number] [address] [place] [address], [place] [address] May, [facility] [address] [id number] [address] [place] [address], [place] [address] May, [facility] [address] [id number] [address] [place] [address], [place] [address] 06 May, 2013 [facility] [address] [id number] [address] [place] [address], [place] [address] May, [facility] [address] [id number] [address] [place] [address], [place] [address] May, [facility] [address] [id number] [address] [place] [address], [place] [address] May, [facility] [address] [id number] [address] [place] [address], [place] [address] May, [facility] [address] [id number] [address] [place] [address], [place] [address] Apr, [facility] [address] [id number] [address] [place] [address], [place] [address] Apr, [facility] [address] [id number] [address] [place] [address], [place] [address] Apr, [facility] [address] [id number] [address] [place] [address], [place] [address] Apr, [facility] [address] [id number] [address] [place] [address], [place] [address] Apr, [facility] [address] [id number] [address] [place] [address], [place] [address] Apr, [facility] [address] [id number] [address] [place] [address], [place] [address] Apr, [facility] [address] [id number] [address] [place] [address], [place] [address] Apr, [facility] [address] [id number] [address] [place] [address], [place] [address] Apr, [facility] [address] [id number] [address] [place] [address], [place] [address] Apr, [facility] [address] [id number] [address] [place] [address], [place] [address] Apr, [facility] [address] [id number] [address] [place] [address], [place] [address] Apr, [facility] [address] [id number] [address] [place] [address], [place] [address] Apr, [facility] [address] [id number] [address] [place] [address], [place] [address] Apr, [facility] [address] [id number] [address] [place] [address], [place] [address] Apr, [facility] [address] [id number] [address] [place] [address], [place] [address] Apr, [facility] [address] [id number] [address] [place] [address], [place] [address] Apr, [facility] [address] [id number] [address] [place] [address], [place] [address] Jan, [facility] [address] [id number] [address] [place] [address], [place] [address] Jan, [facility] [address] [id number] [address] [place] [address], [place] [address] Jan, [facility] [address] [id number] [address] [place] [address], [place] [address] Jan, [facility] [address] [id number] [address] [place] [address], [place] [address] Jan, [facility] [address] [id number] [address] [place] [address], [place] [address] Jan, [facility] [address] [id number] [address] [place] [address], [place] [address] Jan, [facility] [address] [id number] [address] [place] [address], [place] [address] Dec, [facility] [address] [id number] [address] [place] [address] Dec, [facility] [address] [id number] [address] [place] [address], [place] [address] Dec, [facility] [address] [id number] [address] [place] [address], [place] [address] Nov, [facility] [address] [id number] [address] [place] [address], [place] [address] Nov, [facility] [address] [id number] [address] [place] [address] [place] [address] 05 Nov, 2012 [facility] [address] [id number] [address] [place] [address], [place] [address] Nov, [facility] [address] [id number] [address] [place] [address], [place] [address] Oct, [facility] [address] [id number] [address] [place] [address], [place] [address] Oct, [facility] [address] [id number] [address] [place] [address], [place] [address] Oct, [facility] [address] [id number] [address] [place] [address], [place] [address] Oct, [facility] [address] [id number] [address] [place] [address], [place] [address] Oct, [facility] [address] [id number] [address] [place] [address], [place] [address] Sep, [facility] [address] [id number] [address] [place] [address], [place] [address] Sep, [facility] [address] [id number] [address] [place] [address], [place] [address] Sep, [facility] [address] [id number] [address] [place] [address], [place] [address] Sep, [facility] [address] [id number] [address] [place] [address], [place] [address] Sep, [facility] [address] [id number] [address] [place] [address], [place] [address] Sep, [facility] [address] [id number] [address] [place] [address], [place] [address] Sep, [facility] [address] [id number] [address] [place] [address], [place] [address] Aug, [facility] [address] [id number] [address] [place] [address], [place] [address] Aug, [facility] [address] [id number] [address] [place] [address], [place] [address] July, [facility] [address] [id number] [address] [place] [address], [place] [address] Jun, [facility] [address] [id number] [address] [place] [address], [place] [address] Jun, [facility] [address] [id number] [address] [place] [address], [place] [address] Jun, [facility] [address] [id number] [address] [place] [address], [place] [address] Apr, [facility] [address] [id number] [address] [place] [address], [place] [address] Apr, [facility] [address] [id number] [address] [place] [address], [place] [address] Apr, [facility] [address] [id number] [address] [place] [address], [place] [address] Mar, [facility] [address] [id number] [address] [place] [address], [place] [address] Mar, [facility] [address] [id number] [address] [place] [address], [place] [address] Mar, [facility] [address] [id number] [address] [place] [address], [place] [address] Mar, [facility] [address] [id number] [address] [place] [address], [place] [address] Mar, [facility] [address] [id number] [address] [place] [address], [place] [address] Feb, [facility] [address] [id number] [address] [place] [address], [place] [address] Feb, [facility] [address] [id number] [address] [place] [address], [place] [address] Jan, [facility] [address] [id number] [address] [place] [id number] Jan, [facility] [address] [id number] [address] [place] [address], [place] [address] 13 Jan, 2012 [facility] [address] [id number] [address] [place] [id number] Jan, [facility] [address] [id number] [address] [place] [id number] 07 Jan, 2012 [facility] [address] [id number] [address] [place] [id number] 07 Jan, 2012 [facility] [address] [id number] [address] [place] [address], [place] [address] Jan, [facility] [address] [id number] [address] [place] [id number] 31 Dec, 2011 [facility] [address] [id number] [address] [place] [id number] 31 Dec, 2011 [facility] [address] [id number] [address] [place] [id number] 30 Dec, 2011 [facility] [address] [id number] [address] [place] [id number] 30 Dec, 2011 [facility] [address] [id number] [address] [place] [id number] 30 Dec, 2011 [facility] [address] [id number] [address] [place] [id number] 30 Dec, 2011 [facility] [address] [id number] [address] [place] [id number] 30 Dec, 2011 [facility] [address] [id number] [address] [place] [address], [place] [address] 30 Dec, 2011 [facility] [address] [id number] [address] [place] [id number] Dec, [facility] [address] [id number] [address] [place] [id number] Dec, [facility] [address] [id number] [address] [place] [address], [place] [address] Oct, [facility] [address] [id number] [address] [place] [address], [place] [address] Oct, [facility] [address] [id number] [address] [place] [address], [place] [address] Aug, [facility] [address] [id number] [address] [place] [address], [place] [address] Aug, [facility] [address] [id number] [address] [place] [address], [place] [address] July, [facility] [address] [id number] [address] [place] [address], [place] [address] Jun, [facility] [address] [id number] [address] [place] [address], [place] [address] Jun, [facility] [address] [id number] [address] [place] [address], [place] [address] May, [facility] [address] [id number] [address] [place] [address], [place] [address] Apr, [facility] [address] [id number] [address] [place] [address], [place] [address] Apr, [facility] [address] [id number] [address] [place] [address], [place] [address] Mar, [facility] [address] [id number] [address] [place] [address], [place] [address] Mar, [facility] [address] [id number] [address] [place] [address], [place] [address] Feb, [facility] [address] [id number] [address] [place] [address], [place] [address] 15 Feb, 2011 [facility] [address] [id number] [address] [place] [address], [place] [address] Feb, [facility] [address] [id number] [address] [place] [address], [place] [address] Feb, [facility] [address] [id number] [address] [place] [id number] Jan, [facility] [address] [id number] [address] [place] [id number] Dec, [facility] [address] [id number] [address] [place] [id number] Feb, [facility] [address] [id number] [address] [place] [id number] Feb, [facility] [address] [id number] [address] [place] [id number] Feb, [facility] [address] [id number] [address] [place] [id number] Feb, [facility] [address] [id number] [address] [place] [id number] Dec, [facility] [address] [id number] [address] [place] [phone] Dec, [facility] [address] [id number] [address] [place] [id number] Oct, [facility] [address] [id number] [address] [place] [id number] Jun, [facility] [address] [id number] [address] [place] [phone] Feb, [facility] [address] [id number] [address] [place] [phone] Feb, [facility] [address] [id number] [address] [place] [phone] Feb, [facility] [address] [id number] [address] [place] [phone] Dec, IMMUNIZATIONS No Known Immunizations SOCIAL HISTORY Never Assessed REASON FOR VISIT PLAN OF CARE VITAL SIGNS MEDICATIONS Unknown Medications RESULTS No Results PROCEDURES Procedure Date Ordered Result Body Site PROTHROMBIN TIME June 23, 2014 INSTRUCTIONS MEDICATIONS ADMINISTERED No Known Medications MEDICAL (GENERAL) HISTORY Type Description Date Medical History obesity Medical History Hematologic disorder factor clotting pro blem Medical History DVT's Medical History Torn Rotator Cuff, repaired 09/23/17 Surgical History Lap Band 10/2012 Surgical History section 1985, 1987 Surgical History cholecystectomy Surgical History [place] Filter 06/2009 Surgical History Left leg exploratory surgery r/t clot Surgical History left shoulder surgery 09/14/17 Surgical History lap band removed 12/2017 Surgical History gastic sleeve 01/2018 Surgical History Back surgery 2018 Hospitalization History Ruptured Ovarian Cyst with abd bleed ing 11/2009 Hospitalization History Broken Back 06/2018
--- OUTSIDE RECORDS SUMMARY | 2019-10-19 12:38 | XMS REPORT ---
Author Author KIANAMary Jane Organization [facility] Address [address] [place] [address] Care Team Providers Care Tilt Tray Driver Name Role Phone ASHLEY BRUNO Unavailable PROBLEMS Type Condition ICD9-CM Code [id number] Code Onset Dates Condition S tatus SNOMED Code Problem Factor V Leiden D68.51 Active 3070 46399 Problem Thyroid follicular adenoma D34 Act phylicia 062689353 Problem Hypertriglyceridemia E78.1 Active 039651902 Problem History of DVT (deep vein thrombosis) Z86.718 Active 938445196 Problem Presence of IVC filter Z95.828 Active 425928903 Problem 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 Active 636193345 Problem Pelvic pain R10.2 Active 47915472 Problem Morbid obesity E66.01 Active 69850 6002 Problem Generalized anxiety disorder F41.1 A ctive 533014331 Problem Obstructive sleep apnea G47.33 Active 52039128 Problem halfway (current) use of anticoagulants Z79.01 Active 511451742 Problem Peripheral edema R60.9 Active 271 687071 Problem Excessive daytime sleepiness G47.19 A ctive 225685616471 Problem Gastroesophageal reflux disease, esophagitis pre sence not specified K21.9 Active 654034781 Problem Thyroid nodule E04.1 Active 47929 5005 ALLERGIES No Information ENCOUNTERS Encounter Location Date Diagnosis [facility] [address] [id number] [address] [place] [phone] Sep, [facility] [address] [id number] [address] [place] [phone] Aug, [facility] [address] [id number] [address] [place] [phone] July, [facility] [address] [id number] [address] [place] [phone] July, [facility] [address] [id number] [address] [place] [phone] Jun, [facility] [address] [id number] [address] [place] [phone] Jun, [facility] [address] [id number] [address] [place] [phone] Jun, Closed compression fracture of L3 lumbar vertebra with routine healing, subsequent encounter S32.030D and Drug-induced constipation K59.03 [facility] [address] [id number] [address] [place] [phone] Jun, [facility] [address] [id number] [address] [place] [phone] Jun, [facility] [address] [id number] [address] [place] [phone] Apr, [facility] [address] [id number] [address] [place] [phone] Apr, Morbid obesity E66.01 [facility] [address] [id number] [address] [place] [phone] Apr, Morbid obesity E66.01 ; Hype rtriglyceridemia E78.1 ; Gastroesophageal reflux disease, esophagitis presence not specified K21.9 and Joint pain M25.50 [facility] [address] [id number] [address] [place] [phone] Feb, [facility] [address] [id number] [address] [place] [phone] Feb, [facility] [address] [id number] [address] [place] [phone] Jan, Acute bacterial conjunctivit is H10.30 [facility] [address] [id number] [address] [place] [phone] Dec, [facility] [address] [id number] [address] [place] [phone] Dec, [facility] [address] [id number] [address] [place] [phone] 17 Nov, 2017 [facility] [address] [id number] [address] [place] [phone] 07 Nov, 2017 Obstructive sleep apnea G47. 33 ; Morbid obesity E66.01 and Gastroesophageal reflux disease, esophagitis presence not specified K21.9 [facility] [address] [id number] [address] [place] [address] [id number] 06 Nov, 2017 Encounter for examination of eyes and vision without abnormal findings Z01.00 [facility] [address] [id number] [address] [place] [phone] 31 Oct, 2017 Thyroid nodule E04.1 and Scr eening for breast cancer Z12.31 [facility] [address] [id number] [address] [place] [id number] 23 Oct, 2017 History of DVT (deep vein th rombosis) Z86.718 ; Thyroid nodule E04.1 and Gastroesophageal reflux disease, esophagitis presence not specified K21.9 [facility] [address] [id number] [address] [place] [phone] Oct, [facility] [address] [id number] [address] [place] [phone] Sep, [facility] [address] [id number] [address] [place] [phone] Aug, [facility] [address] [id number] [address] [place] [phone] Aug, [facility] [address] [id number] [address] [place] [address] Aug, Acute pain of left shoulder M25.512 and Thyroid nodule E04.1 [facility] [address] [id number] [address] [place] [phone] July, Superior glenoid labrum lesi on of left shoulder, subsequent encounter S43.432D [facility] [address] [id number] [address] [place] [id number] Jun, History of DVT (deep vein th rombosis) Z86.718 [facility] [address] [id number] [address] [place] [phone] Jun, History of DVT (deep vein th rombosis) Z86.718 [facility] [address] [id number] [address] [place] [phone] Jun, Impingement syndrome, should er, left M75.42 [facility] [address] [id number] [address] [place] [phone] May, Subacromial bursitis of left shoulder joint M75.52 [facility] [address] [id number] [address] [place] [phone] May, [facility] [address] [place] [id number] [address] [place] [phone] May, Hypertriglyceridemia E78.1 ; 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 and Excessive daytime sleepiness G47.19 [facility] [address] [id number] [address] [place] [address] May, History of DVT (deep vein th rombosis) Z86.718 ; Generalized anxiety disorder F41.1 ; Hypertriglyceridemia E78.1 ; halfway (current) use of anticoagulants Z79.01 ; Subacromial bursitis of left shoulder joint M75.52 and Excessive daytime sleepiness G47.19 [facility] [address] [id number] [address] [place] [phone] May, [facility] [address] [id number] [address] [place] [phone] May, halfway (current) use of a nticoagulants Z79.01 [place] [facility] [address] [id number] [address] [place] [phone] Apr, halfway (current) use of a nticoagulants Z79.01 [place] [facility] [address] [id number] [address] [place] [phone] Apr, halfway (current) use of a nticoagulants Z79.01 [facility] [address] [id number] [address] [place] [phone] Apr, 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 [facility] [address] [id number] [address] [place] [phone] Apr, [facility] [address] [id number] [address] [place] [phone] Apr, halfway (current) use of a nticoagulants Z79.01 [facility] [address] [id number] [address] [place] [phone] 13 Apr, 2017 halfway (current) use of a nticoagulants Z79.01 [facility] [address] [id number] [address] [place] [phone] Apr, halfway (current) use of a nticoagulants Z79.01 [facility] [address] [id number] [address] [place] [address] Apr, halfway (current) use of a nticoagulants Z79.01 [facility] [address] [id number] [address] [place] [phone] Apr, halfway (current) use of a nticoagulants Z79.01 [facility] [address] [id number] [address] [place] [phone] Apr, halfway (current) use of a nticoagulants Z79.01 [facility] [address] [id number] [address] [place] [phone] Mar, halfway (current) use of a nticoagulants Z79.01 [facility] [address] [id number] [address] [place] [phone] Mar, [facility] [address] [id number] [address] [place] [phone] Mar, 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 [facility] [address] [id number] [address] [place] [id number] Jan, Dental examination Z01.20 [facility] [address] [id number] [address] [place] [address] [id number] Jan, [facility] [address] [id number] [address] [place] [phone] Jan, halfway (current) use of a nticoagulants Z79.01 [facility] [address] [id number] [address] [place] [phone] Jan, History of DVT (deep vein th rombosis) Z86.718 [facility] [address] [id number] [address] [place] [id number] Jan, Generalized anxiety disorder F41.1 and Peripheral edema R60.9 [facility] [address] [id number] [address] [place] [phone] Nov, History of DVT (deep vein th rombosis) Z86.718 [facility] [address] [id number] [address] [place] [phone] Nov, halfway (current) use of a nticoagulants Z79.01 [facility] [address] [id number] [address] [place] [phone] Nov, Acute non-recurrent maxillar y sinusitis J01.00 [facility] [address] [id number] [address] [place] [phone] Oct, halfway (current) use of a nticoagulants Z79.01 [facility] [address] [id number] [address] [place] [address] Oct, Personal history of venous t hrombosis and embolism Z86.718 [facility] [address] [id number] [address] [place] [address] Sep, [facility] [address] [place] [id number] [place] [phone] Sep, Personal history of venous t hrombosis and embolism Z86.718 [facility] [facility] [address] [place] [id number] [address] [place] [phone] Sep, 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 [place] [address] [address] Sep, 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 [place] [address] [address] Sep, Generalized anxiety disorder F41.1 and History of DVT (deep vein thrombosis) Z86.718 [place] [address] [address] Aug, History of DVT (deep vein th rombosis) Z86.718 ; Generalized anxiety disorder F41.1 ; 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 ; Pelvic pain R10.2 ; Hypertriglyceridemia E78.1 ; Excessive daytime sleepiness G47.19 ; Colon cancer screening Z12.11 ; Screening for breast cancer Z12.39 ; Peripheral edema R60.9 and Gastroesophageal reflux disease, esophagitis presence not specified K21.9 [place] [address] [place] [id number] [address] [place] [phone] Aug, [place] [address] [place] [id number] [address] [place] [address] July, [address] [address] July, History of DVT (deep vein th rombosis) Z86.718 [place] [address] [place] [id number] [address] [place] [address] Jun, Generalized anxiety disorder F41.1 [place] [address] [place] [id number] [address] [place] [phone] Jun, History of DVT (deep vein th rombosis) Z86.718 [facility] [address] [id number] [address] [place] [address] Jun, History of DVT (deep vein th rombosis) Z86.718 [place] [address] [id number] [address] [place] [id number] Jun, History of DVT (deep vein th rombosis) Z86.718 [place] [address] [id number] [address] [place] [address] Jun, History of DVT (deep vein th rombosis) Z86.718 [place] [address] [id number] [address] [place] [address] May, History of DVT (deep vein th rombosis) Z86.718 [place] [address] [place] [id number] [address] [place] [phone] May, halfway (current) use of a nticoagulants Z79.01 [place] [address] [place] [id number] [address] [place] [phone] May, 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 [place] [address] [place] [id number] [address] [place] [address] May, History of DVT (deep vein th rombosis) Z86.718 [facility] [address] [id number] [address] [place] [address] Apr, Bacterial conjunctivitis of left eye H10.9 and H/O motion sickness Z87.898 [facility] [address] [id number] [address] [place] [phone] Apr, History of DVT (deep vein th rombosis) Z86.718 [facility] [address] [place] [id number] [address] [place] [phone] 23 Apr, 2016 History of DVT (deep vein th rombosis) Z86.718 [facility] [address] [id number] [address] [place] [phone] 15 Apr, 2016 History of DVT (deep vein th rombosis) Z86.718 [facility] [address] [id number] [address] [place] [address] 14 Apr, 2016 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 [facility] [address] [id number] [address] [place] [address] Mar, [facility] [address] [id number] [address] [place] [address] Mar, halfway (current) use of a nticoagulants Z79.01 [facility] [address] [id number] [address] [place] [phone] Mar, Hypertriglyceridemia E78.1 a nd halfway (current) use of anticoagulants Z79.01 [facility] [address] [id number] [address] [place] [address] Feb, 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 [facility] [address] [id number] [address] [place] [address] Feb, halfway (current) use of a nticoagulants Z79.01 [facility] [address] [id number] [address] [place] [address] Feb, 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 [facility] [address] [id number] [address] [place] [address] Dec, [facility] [address] [id number] [address] [place] [phone] Nov, [facility] [address] [id number] [address] [place] [address] Nov, History of DVT (deep vein th rombosis) Z86.718 ; Tremulousness R25.1 ; Generalized anxiety disorder F41.1 ; Peripheral edema R60.9 and Hypertriglyceridemia E78.1 [place] [address] [id number] [address] [place] [address] Oct, History of DVT (deep vein th rombosis) Z86.718 [facility] [address] [id number] [address] [place] [address] Oct, [place] [address] [id number] [address] [place] [address] Sep, History of DVT (deep vein th rombosis) Z86.718 [place] [address] [id number] [address] [place] [address] Sep, halfway (current) use of a nticoagulants Z79.01 [place] [address] [id number] [address] [place] [id number] July, [place] [address] [id number] [address] [place] [address] July, halfway (current) use of a nticoagulants Z79.01 [facility] [address] [id number] [address] [place] [address] July, 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 [facility] [address] [id number] [address] [place] [address] Jun, halfway (current) use of a nticoagulants Z79.01 [facility] [address] [id number] [address] [place] [address] Jun, Coccyx pain M53.3 ; Encounte r for therapeutic drug level monitoring Z51.81 and halfway current use 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.01 [facility] [address] [id number] [address] [place] [phone] May, Abnormal mammogram R92.8 [facility] [address] [id number] [address] [place] [phone] May, [facility] [address] [id number] [address] [place] [address] May, Acute vaginitis N76.0 and En counter for other screening for malignant neoplasm of breast Z12.39 [facility] [address] [id number] [address] [place] [address] Apr, [facility] [address] [id number] [address] [place] [address] Apr, [place] [address] [id number] [address] [place] [address] Apr, Peripheral edema R60.9 [place] [address] [facility] [id number] [address] [place] [address] Apr, 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 [facility] [address] [id number] [address] [place] [address] Apr, Peripheral edema R60.9 and L jose martin term (current) 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 Z79.01 [place] [address] [facility] [id number] [address] [place] [address] Apr, halfway (current) use of a nticoagulants Z79.01 [place] [address] [facility] [id number] [address] [place] [address] Apr, [facility] [address] [id number] [address] [place] [address] Apr, halfway (current) use of a nticoagulants Z79.01 [place] [address] [facility] [id number] [address] [place] [address] Apr, Peripheral edema R60.9 [facility] [address] [id number] [address] [place] [address] Mar, 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 [facility] [address] [id number] [address] [place] [address] Mar, halfway (current) use of a nticoagulants Z79.01 and Hypertriglyceridemia E78.1 [place] [address] [id number] [address] [place] [id number] Mar, 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 [place] [address] [id number] [address] [place] [address] Mar, halfway (current) use of a nticoagulants Z79.01 [place] [address] [id number] [address] [place] [address] Mar, [place] [address] [id number] [address] [place] [phone] Mar, 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 ; Hypertriglyceridemia E78.1 ; Personal history of venous thrombosis and embolism Z86.718 and Lump R22.9 [place] [address] [id number] [address] [place] [address] Mar, Personal history of venous t hrombosis and embolism Z86.718 [place] [address] [id number] [address] [place] [address] Mar, Personal history of venous t hrombosis and embolism Z86.718 [place] [address] [id number] [address] [place] [phone] Mar, [place] [address] [id number] [address] [place] [phone] Dec, Personal history of venous t hrombosis and embolism Z86.718 [place] [address] [id number] [address] [place] [address] Dec, Personal history of venous t hrombosis and embolism V12.51 [facility] [address] [id number] [address] [place] [phone] Nov, Personal history of venous t hrombosis and embolism V12.51 [facility] [address] [id number] [address] [place] [id number] Nov, Personal history of venous t hrombosis and embolism V12.51 [facility] [address] [id number] [address] [place] [address] Nov, Personal history of venous t hrombosis and embolism V12.51 [facility] [address] [id number] [address] [place] [phone] Nov, Personal history of venous t hrombosis and embolism V12.51 [facility] [address] [id number] [address] [place] [phone] Nov, [facility] [address] [id number] [address] [place] [id number] Oct, Dysuria 788.1 [facility] [address] [id number] [address] [place] [id number] Oct, Personal history of venous t hrombosis and embolism V12.51 [facility] [address] [id number] [address] [place] [id number] Oct, [facility] [address] [id number] [address] [place] [phone] Oct, Personal history of venous t hrombosis and embolism V12.51 [facility] [address] [id number] [address] [place] [id number] Sep, Personal history of venous t hrombosis and embolism V12.51 [facility] [address] [id number] [address] [place] [id number] Sep, Personal history of venous t hrombosis and embolism V12.51 [facility] [address] [id number] [address] [place] [id number] Aug, Personal history of venous t hrombosis and embolism V12.51 [facility] [address] [id number] [address] [place] [id number] 18 Aug, 2014 Personal history of venous t hrombosis and embolism V12.51 [facility] [address] [id number] [address] [place] [id number] 15 Aug, 2014 Personal history of venous t hrombosis and embolism V12.51 [facility] [address] [id number] [address] [place] [phone] July, Generalized anxiety disorder 300.02 ; Abdominal pain, left lower quadrant 789.04 and Personal history of venous thrombosis and embolism V12.51 [facility] [address] [id number] [address] [place] [id number] 14 Jun, 2014 [facility] [address] [id number] [address] [place] [phone] Jun, [facility] [address] [id number] [address] [place] [phone] May, [facility] [address] [id number] [address] [place] [phone] May, [facility] [address] [id number] [address] [place] [phone] May, [facility] [address] [id number] [address] [place] [id number] 17 May, 2014 [facility] [address] [id number] [address] [place] [id number] May, [facility] [address] [id number] [address] [place] [id number] May, [facility] [address] [address] [id number] [address] [place] [id number] May, [facility] [address] [id number] [address] [place] [id number] May, [facility] [address] [id number] [address] [place] [id number] Apr, [facility] [address] [id number] [address] [place] [address], [place] [address] Apr, [facility] [address] [id number] [address] [place] [address], [place] [address] Apr, [facility] [address] [id number] [address] [place] [address], [place] [address] Apr, [facility] [address] [id number] [address] [place] [address], [place] [address] Apr, [facility] [address] [id number] [address] [place] [address], [place] [address] Mar, [facility] [address] [id number] [address] [place] [address], [place] [address] Mar, [facility] [address] [id number] [address] [place] [address], [place] [address] Mar, [facility] [address] [id number] [address] [place] [address], [place] [address] Mar, [facility] [address] [id number] [address] [place] [address], [place] [address] Mar, [facility] [address] [id number] [address] [place] [address], [place] [address] Mar, [facility] [address] [id number] [address] [place] [address], [place] [address] Feb, [facility] [address] [id number] [address] [place] [address], [place] [address] Feb, [facility] [address] [id number] [address] [place] [address], [place] [address] Feb, [facility] [address] [id number] [address] [place] [address], [place] [address] Feb, [facility] [address] [id number] [address] [place] [address], [place] [address] Feb, [facility] [address] [id number] [address] [place] [address], [place] [address] Feb, [facility] [address] [id number] [address] [place] [address], [place] [address] Feb, [facility] [address] [id number] [address] [place] [address], [place] [address] Feb, [facility] [address] [id number] [address] [place] [address], [place] [address] Feb, [facility] [address] [id number] [address] [place] [address], [place] [address] Feb, [facility] [address] [id number] [address] [place] [address], [place] [address] Jan, [facility] [address] [id number] [address] [place] [address], [place] [address] Jan, [facility] [address] [id number] [address] [place] [address], [place] [address] Jan, [facility] [address] [id number] [address] [place] [address], [place] [address] Jan, [facility] [address] [id number] [address] [place] [address], [place] [address] Jan, [facility] [address] [id number] [address] [place] [address], [place] [address] Jan, [facility] [address] [id number] [address] [place] [address], [place] [address] Jan, [facility] [address] [id number] [address] [place] [address], [place] [address] Jan, [facility] [address] [id number] [address] [place] [address], [place] [address] Jan, [facility] [address] [id number] [address] [place] [address], [place] [address] Jan, [facility] [address] [id number] [address] [address] Dec, [facility] [address] [id number] [address] [place] [address], [place] [address] Dec, [facility] [address] [id number] [address] [place] [address], [place] [address] Dec, [facility] [address] [id number] [address] [place] [address], [place] [address] Dec, [facility] [address] [id number] [address] [place] [address] Dec, [facility] [address] [id number] [address] [place] [address], [place] [address] Dec, [facility] [address] [id number] [address] [place] [address] Dec, [facility] [address] [id number] [address] [place] [address], [place] [address] Dec, [facility] [address] [id number] [address] [place] [address] Dec, [facility] [address] [id number] [address] [place] [address], [place] [address] Dec, [facility] [address] [id number] [address] [place] [address] Dec, [facility] [address] [id number] [address] [place] [address] Dec, [facility] [address] [id number] [address] [place] [id number] Dec, [facility] [address] [id number] [address] [place] [address], [place] [address] Dec, [facility] [address] [id number] [address] [place] [address], [place] [address] Dec, [facility] [address] [id number] [address] [place] [address], [place] [address] Nov, [facility] [address] [id number] [facility] [place] [address] 30 Sep, 2013 [facility] [address] [id number] [facility] [place] [address] 26 Sep, 2013 [facility] [address] [id number] [facility] [place] [address] 26 Sep, 2013 [facility] [address] [id number] [address] [place] [address], [place] [address] 24 Sep, 2013 [facility] [address] [id number] [address] [place] [address], [place] [address] 24 Sep, 2013 [facility] [address] [id number] [address] [place] [address], [place] [address] 23 Sep, 2013 [facility] [address] [id number] [address] [place] [address], [place] [address] 23 Sep, 2013 [facility] [address] [id number] [address] [place] [address], [place] [address] 18 Sep, 2013 [facility] [address] [id number] [address] [place] [address], [place] [address] 18 Sep, 2013 [facility] [address] [id number] [address] [place] [address], [place] [address] 17 Sep, 2013 [facility] [address] [id number] [address] [place] [address], [place] [address] 17 Sep, 2013 [facility] [address] [id number] [address] [place] [address], [place] [address] 11 Sep, 2013 [facility] [address] [id number] [address] [place] [address], [place] [address] 11 Sep, 2013 [facility] [address] [id number] [address] [place] [address], [place] [address] 10 Sep, 2013 [facility] [address] [id number] [address] [place] [address], [place] [address] 10 Sep, 2013 [facility] [address] [id number] [address] [place] [address], [place] [address] Nov, [facility] [address] [id number] [address] [place] [address], [place] [address] Nov, [facility] [address] [id number] [address] [place] [address], [place] [address] Sep, [facility] [address] [id number] [address] [place] [address], [place] [address] Sep, [facility] [address] [id number] [address] [place] [address], [place] [address] Sep, [facility] [address] [id number] [address] [place] [address], [place] [address] Sep, [facility] [address] [id number] [address] [place] [address], [place] [address] Sep, [facility] [address] [id number] [address] [place] [address], [place] [address] Sep, [facility] [address] [id number] [address] [place] [address], [place] [address] Aug, [facility] [address] [id number] [address] [place] [address], [place] [address] Aug, [facility] [address] [id number] [address] [place] [address], [place] [address] Aug, [facility] [address] [id number] [address] [place] [address], [place] [address] Aug, [facility] [address] [id number] [address] [place] [address], [place] [address] 24 Aug, 2013 [facility] [address] [id number] [address] [place] [address], [place] [address] Aug, [facility] [address] [id number] [address] [place] [address], [place] [address] Aug, [facility] [address] [id number] [address] [place] [address], [place] [address] Aug, [facility] [address] [id number] [address] [place] [address], [place] [address] Aug, [facility] [address] [id number] [address] [place] [address], [place] [address] Aug, [facility] [address] [id number] [address] [place] [address], [place] [address] Aug, [facility] [address] [id number] [address] [place] [address], [place] [address] July, [facility] [address] [id number] [address] [place] [address], [place] [address] July, [facility] [address] [id number] [address] [place] [address], [place] [address] Jun, [facility] [address] [id number] [address] [place] [address], [place] [address] Jun, [facility] [address] [id number] [address] [place] [address], [place] [address] Jun, [facility] [address] [id number] [address] [place] [address], [place] [address] Jun, [facility] [address] [id number] [address] [place] [address], [place] [address] Jun, [facility] [address] [id number] [address] [place] [address], [place] [address] Jun, [facility] [address] [id number] [address] [place] [address], [place] [address] Jun, [facility] [address] [id number] [address] [place] [address], [place] [address] 15 Jun, 2013 [facility] [address] [id number] [address] [place] [address], [place] [address] Jun, [facility] [address] [id number] [address] [place] [address], [place] [address] Jun, [facility] [address] [id number] [address] [place] [address], [place] [address] Jun, [facility] [address] [id number] [facility] [place] [address] Jun, [facility] [address] [id number] [facility] [place] [address] May, [facility] [address] [id number] [facility] [place] [address] May, [facility] [address] [id number] [facility] [place] [address] May, [facility] [address] [id number] [address] [place] [address], [place] [address] May, [facility] [address] [id number] [address] [place] [address], [place] [address] May, [facility] [address] [id number] [address] [place] [address], [place] [address] May, [facility] [address] [id number] [address] [place] [address], [place] [address] May, [facility] [address] [id number] [address] [place] [address], [place] [address] May, [facility] [address] [id number] [address] [place] [address], [place] [address] May, [facility] [address] [id number] [address] [place] [address], [place] [address] May, [facility] [address] [id number] [address] [place] [address], [place] [address] May, [facility] [address] [id number] [address] [place] [address], [place] [address] May, [facility] [address] [id number] [address] [place] [address], [place] [address] Apr, [facility] [address] [id number] [address] [place] [address], [place] [address] Apr, [facility] [address] [id number] [address] [place] [address], [place] [address] Apr, [facility] [address] [id number] [address] [place] [address], [place] [address] Apr, [facility] [address] [id number] [address] [place] [address], [place] [address] Apr, [facility] [address] [id number] [address] [place] [address], [place] [address] Apr, [facility] [address] [id number] [address] [place] [address], [place] [address] Apr, [facility] [address] [id number] [address] [place] [address], [place] [address] Apr, [facility] [address] [id number] [address] [place] [address], [place] [address] Apr, [facility] [address] [id number] [address] [place] [address], [place] [address] Apr, [facility] [address] [id number] [address] [place] [address], [place] [address] Apr, [facility] [address] [id number] [address] [place] [address], [place] [address] Apr, [facility] [address] [id number] [address] [place] [address], [place] [address] Apr, [facility] [address] [id number] [address] [place] [address], [place] [address] Apr, [facility] [address] [id number] [address] [place] [address], [place] [address] Apr, [facility] [address] [id number] [address] [place] [address], [place] [address] Apr, [facility] [address] [id number] [address] [place] [address], [place] [address] 13 Apr, 2013 [facility] [address] [id number] [address] [place] [address], [place] [address] Jan, [facility] [address] [id number] [address] [place] [address], [place] [address] Jan, [facility] [address] [id number] [address] [place] [address], [place] [address] Jan, [facility] [address] [id number] [address] [place] [address], [place] [address] Jan, [facility] [address] [id number] [address] [place] [address], [place] [address] Jan, [facility] [address] [id number] [address] [place] [address], [place] [address] Jan, [facility] [address] [id number] [address] [place] [address], [place] [address] Jan, [facility] [address] [id number] [address] [place] [address], [place] [address] Dec, [facility] [address] [id number] [address] [place] [address], [place] [address] Dec, [facility] [address] [id number] [address] [place] [address], [place] [address] Dec, [facility] [address] [id number] [address] [place] [address] Nov, [facility] [address] [id number] [address] [place] [address] 10 Nov, 2012 [facility] [address] [id number] [address] [place] [address] 05 Nov, 2012 [facility] [address] [id number] [address] [place] [address], [place] [address] 04 Nov, 2012 [facility] [address] [id number] [address] [place] [address], [place] [address] Oct, [facility] [address] [id number] [address] [place] [address] Oct, [facility] [address] [id number] [address] [place] [address] Oct, [facility] [address] [id number] [address] [place] [address], [place] [address] Oct, [facility] [address] [id number] [address] [place] [address], [place] [address] Oct, [facility] [address] [id number] [address] [place] [address], [place] [address] Sep, [facility] [address] [id number] [address] [place] [address], [place] [address] Sep, [facility] [address] [id number] [address] [place] [address], [place] [address] Sep, [facility] [address] [id number] [address] [place] [address], [place] [address] Sep, [facility] [address] [id number] [address] [place] [address], [place] [address] Sep, [facility] [address] [id number] [address] [place] [address], [place] [address] Sep, [facility] [address] [id number] [address] [place] [address], [place] [address] Sep, [facility] [address] [id number] [address] [place] [address], [place] [address] Aug, [facility] [address] [id number] [address] [place] [address], [place] [address] Aug, [facility] [address] [id number] [address] [place] [address], [place] [address] July, [facility] [address] [id number] [address] [place] [address], [place] [address] Jun, [facility] [address] [id number] [address] [place] [address], [place] [address] Jun, [facility] [address] [id number] [address] [place] [address], [place] [address] Jun, [facility] [address] [id number] [address] [place] [address], [place] [address] Apr, [facility] [address] [id number] [address] [place] [address], [place] [address] Apr, [facility] [address] [id number] [address] [place] [address], [place] [address] Apr, [facility] [address] [id number] [address] [place] [address], [place] [address] Mar, [facility] [address] [id number] [address] [place] [address], [place] [address] Mar, [facility] [address] [id number] [address] [place] [address], [place] [address] Mar, [facility] [address] [id number] [address] [place] [address], [place] [address] Mar, [facility] [address] [id number] [address] [place] [address], [place] [address] Mar, [facility] [address] [id number] [address] [place] [address], [place] [address] 14 Feb, 2012 [facility] [address] [id number] [address] [place] [address], [place] [address] 14 Feb, 2012 [facility] [address] [id number] [address] [place] [address], [place] [address] 13 Jan, 2012 [facility] [address] [id number] [address] [place] [address], [place] [address] 13 Jan, 2012 [facility] [address] [id number] [address] [place] [address], [place] [address] 13 Jan, 2012 [facility] [address] [id number] [address] [place] [address], [place] [address] 13 Jan, 2012 [facility] [address] [id number] [address] [place] [address], [place] [address] 07 Jan, 2012 [facility] [address] [id number] [address] [address] Jan, [facility] [address] [id number] [address] [place] [address], [place] [address] Jan, [facility] [address] [id number] [address] [place] [address], [place] [address] Dec, [facility] [address] [id number] [address] [place] [address], [place] [address] Dec, [facility] [address] [id number] [address] [place] [id number] Dec, [facility] [address] [id number] [address] [place] [address], [place] [address] Dec, [facility] [address] [id number] [address] [place] [id number] Dec, [facility] [address] [id number] [address] [place] [address], [place] [address] Dec, [facility] [address] [id number] [address] [place] [address], [place] [address] Dec, [facility] [address] [id number] [address] [place] [address], [place] [address] Dec, [facility] [address] [id number] [address] [place] [id number] Dec, [facility] [address] [id number] [address] [place] [address] Dec, [facility] [address] [id number] [address] [place] [id number] Oct, [facility] [address] [id number] [address] [place] [address], [place] [address] Oct, [facility] [address] [id number] [address] [place] [id number] Aug, [facility] [address] [id number] [address] [place] [address] Aug, [facility] [address] [id number] [address] [place] [address], [place] [address] July, [facility] [address] [id number] [address] [place] [address], [place] [address] Jun, [facility] [address] [id number] [address] [place] [address], [place] [address] Jun, [facility] [address] [id number] [address] [place] [address], [place] [address] May, [facility] [address] [id number] [address] [place] [address], [place] [address] Apr, [facility] [address] [id number] [address] [place] [address], [place] [address] Apr, [facility] [address] [id number] [address] [place] [address], [place] [address] Mar, [facility] [address] [id number] [address] [place] [address], [place] [address] Mar, [facility] [address] [id number] [address] [place] [address], [place] [address] Feb, [facility] [address] [id number] [address] [place] [address], [place] [address] 15 Feb, 2011 [facility] [address] [id number] [address] [place] [address], [place] [address] 13 Feb, 2011 [facility] [address] [id number] [address] [place] [address], [place] [address] Feb, [facility] [address] [id number] [address] [place] [address], [place] [address] Jan, [facility] [address] [id number] [address] [place] [address], [place] [address] 17 Dec, 2010 [facility] [address] [id number] [address] [place] [address], [place] [address] 08 Feb, 2010 [facility] [address] [id number] [address] [place] [address], [place] [address] Feb, [facility] [address] [id number] [address] [place] [id number] Feb, [facility] [address] [id number] [address] [place] [id number] Feb, [facility] [address] [id number] [address] [place] [id number] Dec, [facility] [address] [id number] [address] [place] [id number] Dec, [facility] [address] [id number] [address] [place] [id number] Oct, [facility] [address] [id number] [address] [place] [id number] Jun, [facility] [address] [id number] [address] [place] [phone] Feb, [facility] [address] [id number] [address] [place] [id number] Feb, [facility] [address] [id number] [address] [place] [id number] Feb, [facility] [address] [id number] [address] [place] [id number] Dec, IMMUNIZATIONS No Known Immunizations SOCIAL HISTORY [...]
--- OUTSIDE RECORDS SUMMARY | 2019-10-19 12:38 | XMS REPORT ---
Author Author KIANAMary Jane Organization [facility] Address [address] [place] [address] Care Team Providers Care Flooring Professional Name Role Phone ASHLEY BRUNO Unavailable PROBLEMS Type Condition ICD9-CM Code NVT15-NB Code Onset Dates Condition S tatus SNOMED Code Problem Factor V Leiden D68.51 Active 3070 33646 Problem Thyroid follicular adenoma D34 Act phylicia 310599113 Problem Hypertriglyceridemia E78.1 Active 006461719 Problem History of DVT (deep vein thrombosis) Z86.718 Active 438096519 Problem Presence of IVC filter Z95.828 Active 708279130 Problem 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 Active 135987789 Problem Pelvic pain R10.2 Active 17431104 Problem Morbid obesity E66.01 Active 25334 6002 Problem Generalized anxiety disorder F41.1 A ctive 291883155 Problem Obstructive sleep apnea G47.33 Active 67778277 Problem [facility] (current) use of anticoagulants Z79.01 Active 275712423 Problem Peripheral edema R60.9 Active 271 855663 Problem Excessive daytime sleepiness G47.19 A ctive 225773970735 Problem Gastroesophageal reflux disease, esophagitis pre sence not specified K21.9 Active 795205190 Problem Thyroid nodule E04.1 Active 19533 5005 ALLERGIES No Information ENCOUNTERS Encounter Location Date Diagnosis [facility] [address] [facility] [id number] [address] [place] [phone] Sep, [facility] [address] [facility] [id number] [address] [place] [phone] Aug, [facility] [address] [facility] [id number] [address] [place] [phone] July, [facility] [address] [facility] [id number] [address] [place] [phone] July, [facility] [address] [id number] [address] [place] [phone] Jun, [facility] [address] [id number] [address] [place] [phone] Jun, [facility] [address] [id number] [address] [place] [phone] Jun, Closed compression fracture of L3 lumbar vertebra with routine healing, subsequent encounter S32.030D and Drug-induced constipation K59.03 [facility] [address] [id number] [address] [place] [phone] Jun, [facility] [address] [id number] [address] [place] [phone] Jun, [facility] [address] [id number] [address] [place] [phone] Apr, [facility] [address] [facility] [id number] [address] [place] [phone] Apr, Morbid obesity E66.01 [facility] [address] [id number] [address] [place] [phone] Apr, Morbid obesity E66.01 ; Hype rtriglyceridemia E78.1 ; Gastroesophageal reflux disease, esophagitis presence not specified K21.9 and Joint pain M25.50 [facility] [address] [facility] [id number] [address] [place] [phone] Feb, [facility] [address] [facility] [id number] [address] [place] [phone] Feb, [facility] [address] [id number] [address] [place] [phone] Jan, Acute bacterial conjunctivit is H10.30 [facility] [address] [id number] [address] [place] [phone] Dec, [facility] [address] [facility] [id number] [address] [place] [phone] Dec, [facility] [address] [id number] [address] [place] [phone] 17 Nov, 2017 [facility] [address] [facility] [id number] [address] [place] [phone] 07 Nov, 2017 Obstructive sleep apnea G47. 33 ; Morbid obesity E66.01 and Gastroesophageal reflux disease, esophagitis presence not specified K21.9 [facility] [address] [id number] [address] [place] [id number] 06 Nov, 2017 Encounter for examination of eyes and vision without abnormal findings Z01.00 [facility] [address] [facility] [id number] [address] [place] [phone] 31 Oct, 2017 Thyroid nodule E04.1 and Scr eening for breast cancer Z12.31 [facility] [address] [facility] [id number] [address] [place] [phone] 23 Oct, 2017 History of DVT (deep vein th rombosis) Z86.718 ; Thyroid nodule E04.1 and Gastroesophageal reflux disease, esophagitis presence not specified K21.9 [facility] [address] [facility] [id number] [address] [place] [phone] Oct, [facility] [address] [facility] [id number] [address] [place] [phone] Sep, [facility] [address] [facility] [id number] [address] [place] [phone] Aug, [facility] [address] [facility] [id number] [address] [place] [phone] Aug, [facility] [address] [facility] [id number] [address] [place] [phone] Aug, Acute pain of left shoulder M25.512 and Thyroid nodule E04.1 [facility] [address] [facility] [id number] [address] [place] [phone] July, Superior glenoid labrum lesi on of left shoulder, subsequent encounter S43.432D [facility] [address] [facility] [id number] [address] [place] [phone] Jun, History of DVT (deep vein th rombosis) Z86.718 [facility] [address] [id number] [address] [place] [phone] Jun, History of DVT (deep vein th rombosis) Z86.718 [facility] [address] [facility] [id number] [address] [place] [phone] Jun, Impingement syndrome, should er, left M75.42 [place] [address] [id number] [address] [place] [phone] May, Subacromial bursitis of left shoulder joint M75.52 [place] [address] [facility] [id number] [address] [place] [phone] May, [place] [address] [place] [id number] [address] [place] [phone] May, Hypertriglyceridemia E78.1 ; 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 and Excessive daytime sleepiness G47.19 [place] [address] [facility] [id number] [address] [place] [phone] May, History of DVT (deep vein th rombosis) Z86.718 ; Generalized anxiety disorder F41.1 ; Hypertriglyceridemia E78.1 ; [facility] (current) use of anticoagulants Z79.01 ; Subacromial bursitis of left shoulder joint M75.52 and Excessive daytime sleepiness G47.19 [place] [address] [id number] [address] [place] [phone] May, [place] [address] [id number] [address] [place] [phone] May, [facility] (current) use of a nticoagulants Z79.01 [place] [address] [facility] [id number] [address] [place] [phone] Apr, [facility] (current) use of a nticoagulants Z79.01 [place] [address] [id number] [address] [place] [phone] Apr, [facility] (current) use of a nticoagulants Z79.01 [facility] [address] [id number] [address] [place] [phone] Apr, 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 [facility] [address] [id number] [address] [place] [phone] Apr, [facility] [address] [id number] [address] [place] [phone] Apr, [facility] (current) use of a nticoagulants Z79.01 [facility] [address] [id number] [address] [place] [phone] 13 Apr, 2017 [facility] (current) use of a nticoagulants Z79.01 [facility] [address] [id number] [address] [place] [phone] Apr, [facility] (current) use of a nticoagulants Z79.01 [facility] [address] [id number] [address] [place] [phone] Apr, [facility] (current) use of a nticoagulants Z79.01 [facility] [address] [id number] [address] [place] [phone] Apr, [facility] (current) use of a nticoagulants Z79.01 [facility] [address] [id number] [address] [place] [phone] Apr, [facility] (current) use of a nticoagulants Z79.01 [facility] [address] [id number] [address] [place] [phone] Mar, [facility] (current) use of a nticoagulants Z79.01 [facility] [address] [id number] [address] [place] [phone] Mar, [facility] [address] [id number] [address] [place] [phone] Mar, 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 [facility] [address] [id number] [address] [place] [id number] Jan, Dental examination Z01.20 [facility] [address] [id number] [address] [place] [phone] Jan, [facility] [address] [id number] [address] [place] [phone] Jan, [facility] (current) use of a nticoagulants Z79.01 [facility] [address] [id number] [address] [place] [phone] Jan, History of DVT (deep vein th rombosis) Z86.718 [facility] [address] [id number] [address] [place] [phone] Jan, Generalized anxiety disorder F41.1 and Peripheral edema R60.9 [facility] [address] [id number] [address] [place] [phone] Nov, History of DVT (deep vein th rombosis) Z86.718 [facility] [address] [id number] [address] [place] [phone] Nov, [facility] (current) use of a nticoagulants Z79.01 [facility] [address] [id number] [address] [place] [phone] Nov, Acute non-recurrent maxillar y sinusitis J01.00 [facility] [address] [id number] [address] [place] [phone] Oct, [facility] (current) use of a nticoagulants Z79.01 [facility] [address] [id number] [address] [place] [phone] Oct, Personal history of venous t hrombosis and embolism Z86.718 [facility] [address] [id number] [address] [place] [phone] Sep, [place] [address] [place] [id number] [place] [phone] Sep, Personal history of venous t hrombosis and embolism Z86.718 [place] [address] [place] [id number] [address] [place] [phone] Sep, 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 [place] [address] [phone] Sep, 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9 [place] [address] [place] [id number] [address] [place] [phone] Aug, [place] [address] [place] [id number] [address] [place] [phone] July, [address] [phone] July, History of DVT (deep vein th rombosis) Z86.718 [place] [address] [place] [id number] [address] [place] [phone] Jun, Generalized anxiety disorder F41.1 [place] [address] [place] [id number] [address] [place] [phone] Jun, History of DVT (deep vein th rombosis) Z86.718 [facility] [address] [facility] [id number] [address] [place] [phone] Jun, History of DVT (deep vein th rombosis) Z86.718 [place] [address] [facility] [id number] [address] [place] [phone] Jun, History of DVT (deep vein th rombosis) Z86.718 [place] [address] [facility] [id number] [address] [place] [phone] Jun, History of DVT (deep vein th rombosis) Z86.718 [place] [address] [facility] [id number] [address] [place] [phone] May, History of DVT (deep vein th rombosis) Z86.718 [place] [address] [place] [id number] [address] [place] [phone] May, [facility] (current) use of a nticoagulants Z79.01 [place] [address] [place] [id number] [address] [place] [phone] May, 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 [place] [address] [place] [id number] [address] [place] [id number] May, History of DVT (deep vein th rombosis) Z86.718 [facility] [address] [facility] [id number] [address] [place] [phone] Apr, Bacterial conjunctivitis of left eye H10.9 and H/O motion sickness Z87.898 [facility] [address] [facility] [id number] [address] [place] [phone] Apr, History of DVT (deep vein th rombosis) Z86.718 [facility] [address] [place] [id number] [address] [place] [phone] 23 Apr, 2016 History of DVT (deep vein th rombosis) Z86.718 [facility] [address] [id number] [address] [place] [phone] 15 Apr, 2016 History of DVT (deep vein th rombosis) Z86.718 [facility] [address] [id number] [address] [place] [phone] 14 Apr, 2016 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 [facility] [address] [id number] [address] [place] [phone] Mar, [facility] [address] [id number] [address] [place] [phone] Mar, [facility] (current) use of a nticoagulants Z79.01 [facility] [address] [id number] [address] [place] [phone] Mar, Hypertriglyceridemia E78.1 a nd [facility] (current) use of anticoagulants Z79.01 [facility] [address] [id number] [address] [place] [phone] Feb, 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 [facility] [address] [id number] [address] [place] [phone] Feb, [facility] (current) use of a nticoagulants Z79.01 [facility] [address] [id number] [address] [place] [phone] Feb, 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 [facility] [address] [id number] [address] [place] [phone] Dec, [facility] [address] [id number] [address] [place] [phone] Nov, [facility] [address] [id number] [address] [place] [phone] Nov, History of DVT (deep vein th rombosis) Z86.718 ; Tremulousness R25.1 ; Generalized anxiety disorder F41.1 ; Peripheral edema R60.9 and Hypertriglyceridemia E78.1 [place] [address] [facility] [id number] [address] [place] [phone] Oct, History of DVT (deep vein th rombosis) Z86.718 [facility] [address] [facility] [id number] [address] [place] [phone] Oct, [place] [address] [id number] [address] [place] [phone] Sep, History of DVT (deep vein th rombosis) Z86.718 [place] [address] [facility] [id number] [address] [place] [phone] Sep, [facility] (current) use of a nticoagulants Z79.01 [place] [address] [facility] [id number] [address] [place] [phone] July, [place] [address] [facility] [id number] [address] [place] [phone] July, [facility] (current) use of a nticoagulants Z79.01 [facility] [address] [facility] [id number] [address] [place] [phone] July, 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 [facility] [address] [facility] [id number] [address] [place] [phone] Jun, [facility] (current) use of a nticoagulants Z79.01 [facility] [address] [facility] [id number] [address] [place] [phone] Jun, Coccyx pain M53.3 ; Encounte r for therapeutic drug level monitoring Z51.81 and [facility] current use 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.01 [facility] [address] [facility] [id number] [address] [place] [phone] May, Abnormal mammogram R92.8 [facility] [address] [facility] [id number] [address] [place] [phone] May, [facility] [address] [facility] [id number] [address] [place] [phone] May, Acute vaginitis N76.0 and En counter for other screening for malignant neoplasm of breast Z12.39 [facility] [address] [facility] [id number] [address] [place] [phone] Apr, [facility] [address] [facility] [id number] [address] [place] [phone] Apr, [place] [address] [facility] [id number] [address] [place] [phone] Apr, Peripheral edema R60.9 [place] [address] [facility] [id number] [address] [place] [phone] Apr, 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 [facility] [address] [facility] [id number] [address] [place] [phone] Apr, Peripheral edema R60.9 and L jose martin term (current) 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 Z79.01 [place] [address] [facility] [id number] [address] [place] [phone] Apr, [facility] (current) use of a nticoagulants Z79.01 [place] [address] [facility] [id number] [address] [place] [phone] Apr, [facility] [address] [facility] [id number] [address] [place] [phone] Apr, [facility] (current) use of a nticoagulants Z79.01 [place] [address] [facility] [id number] [address] [place] [phone] Apr, Peripheral edema R60.9 [facility] [address] [facility] [id number] [address] [place] [phone] Mar, 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 [facility] [address] [id number] [address] [place] [phone] Mar, [facility] (current) use of a nticoagulants Z79.01 and Hypertriglyceridemia E78.1 [place] [address] [id number] [address] [place] [phone] Mar, 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 [place] [address] [id number] [address] [place] [phone] Mar, [facility] (current) use of a nticoagulants Z79.01 [place] [address] [id number] [address] [place] [phone] Mar, [place] [address] [id number] [address] [place] [phone] Mar, 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 ; Hypertriglyceridemia E78.1 ; Personal history of venous thrombosis and embolism Z86.718 and Lump R22.9 [place] [address] [id number] [address] [place] [phone] Mar, Personal history of venous t hrombosis and embolism Z86.718 [place] [address] [id number] [address] [place] [phone] Mar, Personal history of venous t hrombosis and embolism Z86.718 [place] [id number] [id number] [address] [place] [phone] Mar, [place] [address] [id number] [address] [place] [phone] Dec, Personal history of venous t hrombosis and embolism Z86.718 [place] [address] [id number] [address] [place] [phone] Dec, Personal history of venous t hrombosis and embolism V12.51 [facility] [address] [id number] [address] [place] [phone] Nov, Personal history of venous t hrombosis and embolism V12.51 [facility] [address] [id number] [address] [place] [phone] Nov, Personal history of venous t hrombosis and embolism V12.51 [facility] [address] [id number] [address] [place] [phone] Nov, Personal history of venous t hrombosis and embolism V12.51 [facility] [address] [id number] [address] [place] [phone] Nov, Personal history of venous t hrombosis and embolism V12.51 [facility] [address] [id number] [address] [place] [phone] Nov, [facility] [address] [id number] [address] [place] [phone] Oct, Dysuria 788.1 [facility] [address] [id number] [address] [place] [phone] Oct, Personal history of venous t hrombosis and embolism V12.51 [facility] [address] [id number] [address] [place] [phone] Oct, [facility] [address] [id number] [address] [place] [phone] Oct, Personal history of venous t hrombosis and embolism V12.51 [facility] [address] [id number] [address] [place] [phone] Sep, Personal history of venous t hrombosis and embolism V12.51 [facility] [address] [id number] [address] [place] [phone] Sep, Personal history of venous t hrombosis and embolism V12.51 [facility] [address] [id number] [address] [place] [id number] Aug, Personal history of venous t hrombosis and embolism V12.51 [facility] [address] [id number] [address] [place] [id number] 18 Aug, 2014 Personal history of venous t hrombosis and embolism V12.51 [facility] [address] [id number] [address] [place] [id number] 15 Aug, 2014 Personal history of venous t hrombosis and embolism V12.51 [facility] [address] [id number] [address] [place] [id number] July, Generalized anxiety disorder 300.02 ; Abdominal pain, left lower quadrant 789.04 and Personal history of venous thrombosis and embolism V12.51 [facility] [address] [id number] [address] [place] [id number] 14 Jun, 2014 [facility] [address] [id number] [address] [place] [id number] Jun, [facility] [address] [id number] [address] [place] [id number] May, [facility] [address] [id number] [address] [place] [id number] May, [facility] [address] [id number] [address] [place] [id number] May, [facility] [address] [id number] [address] [place] [id number] 17 May, 2014 [facility] [address] [id number] [address] [place] [id number] May, [facility] [address] [id number] [address] [place] [id number] May, [facility] [address] [id number] [address] [place] [id number] May, [facility] [address] [id number] [address] [place] [id number] May, [facility] [address] [id number] [address] [place] [id number] Apr, [facility] [address] [id number] [address] [place] [address], [place] [address] Apr, [facility] [address] [id number] [address] [place] [address], [place] [address] Apr, [facility] [address] [id number] [address] [place] [address], [place] [address] Apr, [facility] [address] [id number] [address] [place] [address], [place] [address] Apr, [facility] [address] [id number] [address] [place] [address], [place] [address] Mar, [facility] [address] [id number] [address] [place] [address], [place] [address] Mar, [facility] [address] [id number] [address] [place] [address], [place] [address] Mar, [facility] [address] [id number] [address] [place] [address], [place] [address] Mar, [facility] [address] [id number] [address] [place] [address], [place] [address] Mar, [facility] [address] [id number] [address] [place] [address], [place] [address] Mar, [facility] [address] [id number] [address] [place] [address], [place] [address] Feb, [facility] [address] [id number] [address] [place] [address], [place] [address] Feb, [facility] [address] [id number] [address] [place] [address], [place] [address] Feb, [facility] [address] [id number] [address] [place] [address], [place] [address] Feb, [facility] [address] [id number] [address] [place] [address], [place] [address] Feb, [facility] [address] [id number] [address] [place] [address], [place] [address] Feb, [facility] [address] [id number] [address] [place] [address], [place] [address] Feb, [facility] [address] [id number] [address] [place] [address], [place] [address] Feb, [facility] [address] [id number] [address] [place] [address], [place] [address] Feb, [facility] [address] [id number] [address] [place] [address], [place] [address] Feb, [facility] [address] [id number] [address] [place] [address], [place] [address] Jan, [facility] [address] [id number] [address] [place] [address], [place] [address] Jan, [facility] [address] [id number] [address] [place] [address], [place] [address] Jan, [facility] [address] [id number] [address] [place] [address], [place] [address] Jan, [facility] [address] [id number] [address] [place] [address], [place] [address] Jan, [facility] [address] [id number] [address] [place] [address], [place] [address] Jan, [facility] [address] [id number] [address] [place] [address], [place] [address] Jan, [facility] [address] [id number] [address] [place] [address], [place] [address] Jan, [facility] [address] [id number] [address] [place] [address], [place] [address] Jan, [facility] [address] [id number] [address] [place] [address], [place] [address] Jan, [facility] [address] [id number] [address] [address] Dec, [facility] [address] [id number] [address] [place] [address], [place] [address] Dec, [facility] [address] [id number] [address] [place] [address], [place] [address] Dec, [facility] [address] [id number] [address] [place] [address], [place] [address] Dec, [facility] [address] [id number] [address] [place] [id number] Dec, [facility] [address] [id number] [address] [place] [address], [place] [address] Dec, [facility] [address] [id number] [address] [place] [id number] Dec, [facility] [address] [id number] [address] [place] [address], [place] [address] Dec, [facility] [address] [id number] [address] [place] [id number] Dec, [facility] [address] [id number] [address] [place] [address], [place] [address] Dec, [facility] [address] [id number] [address] [place] [id number] Dec, [facility] [address] [id number] [address] [place] [id number] Dec, [facility] [address] [id number] [address] [place] [id number] Dec, [facility] [address] [id number] [address] [place] [address], [place] [address] Dec, [facility] [address] [id number] [address] [place] [address], [place] [address] Dec, [facility] [address] [id number] [address] [place] [address], [place] [address] Nov, [facility] [address] [id number] [facility] [place] [address] 30 Sep, 2013 [facility] [address] [id number] [facility] [place] [address] 26 Sep, 2013 [facility] [address] [id number] [facility] [place] [address] 26 Sep, 2013 [facility] [address] [id number] [address] [place] [address], [place] [address] 24 Sep, 2013 [facility] [address] [id number] [address] [place] [address], [place] [address] 24 Sep, 2013 [facility] [address] [id number] [address] [place] [address], [place] [address] 23 Sep, 2013 [facility] [address] [id number] [address] [place] [address], [place] [address] 23 Sep, 2013 [facility] [address] [id number] [address] [place] [address], [place] [address] 18 Sep, 2013 [facility] [address] [id number] [address] [place] [address], [place] [address] 18 Sep, 2013 [facility] [address] [id number] [address] [place] [address], [place] [address] 17 Sep, 2013 [facility] [address] [id number] [address] [place] [address], [place] [address] 17 Sep, 2013 [facility] [address] [id number] [address] [place] [address], [place] [address] 11 Sep, 2013 [facility] [address] [id number] [address] [place] [address], [place] [address] 11 Sep, 2013 [facility] [address] [id number] [address] [place] [address], [place] [address] 10 Sep, 2013 [facility] [address] [id number] [address] [place] [address], [place] [address] 10 Sep, 2013 [facility] [address] [id number] [address] [place] [address], [place] [address] Nov, [facility] [address] [id number] [address] [place] [address], [place] [address] Nov, [facility] [address] [id number] [address] [place] [address], [place] [address] Sep, [facility] [address] [id number] [address] [place] [address], [place] [address] Sep, [facility] [address] [id number] [address] [place] [address], [place] [address] Sep, [facility] [address] [id number] [address] [place] [address], [place] [address] Sep, [facility] [address] [id number] [address] [place] [address], [place] [address] Sep, [facility] [address] [id number] [address] [place] [address], [place] [address] Sep, [facility] [address] [id number] [address] [place] [address], [place] [address] Aug, [facility] [address] [id number] [address] [place] [address], [place] [address] Aug, [facility] [address] [id number] [address] [place] [address], [place] [address] Aug, [facility] [address] [id number] [address] [place] [address], [place] [address] Aug, [facility] [address] [id number] [address] [place] [address], [place] [address] 24 Aug, 2013 [facility] [address] [id number] [address] [place] [address], [place] [address] Aug, [facility] [address] [id number] [address] [place] [address], [place] [address] Aug, [facility] [address] [id number] [address] [place] [address], [place] [address] Aug, [facility] [address] [id number] [address] [place] [address], [place] [address] Aug, [facility] [address] [id number] [address] [place] [address], [place] [address] Aug, [facility] [address] [id number] [address] [place] [address], [place] [address] Aug, [facility] [address] [id number] [address] [place] [address], [place] [address] July, [facility] [address] [id number] [address] [place] [address], [place] [address] July, [facility] [address] [id number] [address] [place] [address], [place] [address] Jun, [facility] [address] [id number] [address] [place] [address], [place] [address] Jun, [facility] [address] [id number] [address] [place] [address], [place] [address] Jun, [facility] [address] [id number] [address] [place] [address], [place] [address] Jun, [facility] [address] [id number] [address] [place] [address], [place] [address] Jun, [facility] [address] [id number] [address] [place] [address], [place] [address] Jun, [facility] [address] [id number] [address] [place] [address], [place] [address] Jun, [facility] [address] [id number] [address] [place] [address], [place] [address] 15 Jun, 2013 [facility] [address] [id number] [address] [place] [address], [place] [address] Jun, [facility] [address] [id number] [address] [place] [address], [place] [address] Jun, [facility] [address] [id number] [address] [place] [address], [place] [address] Jun, [facility] [address] [id number] [facility] [place] [address] Jun, [facility] [address] [id number] [facility] [place] [address] May, [facility] [address] [id number] [facility] [place] [address] May, [facility] [address] [id number] [facility] [place] [address] May, [facility] [address] [id number] [address] [place] [address], [place] [address] May, [facility] [address] [id number] [address] [place] [address], [place] [address] May, [facility] [address] [id number] [address] [place] [address], [place] [address] May, [facility] [address] [id number] [address] [place] [address], [place] [address] May, [facility] [address] [id number] [address] [place] [address], [place] [address] May, [facility] [address] [id number] [address] [place] [address], [place] [address] May, [facility] [address] [id number] [address] [place] [address], [place] [address] May, [facility] [address] [id number] [address] [place] [address], [place] [address] May, [facility] [address] [id number] [address] [place] [address], [place] [address] May, [facility] [address] [id number] [address] [place] [address], [place] [address] Apr, [facility] [address] [id number] [address] [place] [address], [place] [address] Apr, [facility] [address] [id number] [address] [place] [address], [place] [address] Apr, [facility] [address] [id number] [address] [place] [address], [place] [address] Apr, [facility] [address] [id number] [address] [place] [address], [place] [address] Apr, [facility] [address] [id number] [address] [place] [address], [place] [address] Apr, [facility] [address] [id number] [address] [place] [address], [place] [address] Apr, [facility] [address] [id number] [address] [place] [address], [place] [address] Apr, [facility] [address] [id number] [address] [place] [address], [place] [address] Apr, [facility] [address] [id number] [address] [place] [address], [place] [address] Apr, [facility] [address] [id number] [address] [place] [address], [place] [address] Apr, [facility] [address] [id number] [address] [place] [address], [place] [address] Apr, [facility] [address] [id number] [address] [place] [address], [place] [address] Apr, [facility] [address] [id number] [address] [place] [address], [place] [address] Apr, [facility] [address] [id number] [address] [place] [address], [place] [address] Apr, [facility] [address] [id number] [address] [place] [address], [place] [address] Apr, [facility] [address] [id number] [address] [place] [address], [place] [address] 13 Apr, 2013 [facility] [address] [id number] [address] [place] [address], [place] [address] Jan, [facility] [address] [id number] [address] [place] [address], [place] [address] Jan, [facility] [address] [id number] [address] [place] [address], [place] [address] Jan, [facility] [address] [id number] [address] [place] [address], [place] [address] Jan, [facility] [address] [id number] [address] [place] [address], [place] [address] Jan, [facility] [address] [id number] [address] [place] [address], [place] [address] Jan, [facility] [address] [id number] [address] [place] [address], [place] [address] Jan, [facility] [address] [id number] [address] [place] [address], [place] [address] Dec, [facility] [address] [id number] [address] [place] [address], [place] [address] Dec, [facility] [address] [id number] [address] [place] [address], [place] [address] Dec, [facility] [address] [id number] [address] [place] [id number] Nov, [facility] [address] [id number] [address] [place] [address] 10 Nov, 2012 [facility] [address] [id number] [address] [place] [id number] 05 Nov, 2012 [facility] [address] [id number] [address] [place] [address], [place] [address] 04 Nov, 2012 [facility] [address] [id number] [address] [place] [address], [place] [address] Oct, [facility] [address] [id number] [address] [place] [id number] Oct, [facility] [address] [id number] [address] [place] [id number] Oct, [facility] [address] [id number] [address] [place] [address], [place] [address] Oct, [facility] [address] [id number] [address] [place] [address], [place] [address] Oct, [facility] [address] [id number] [address] [place] [address], [place] [address] Sep, [facility] [address] [id number] [address] [place] [address], [place] [address] Sep, [facility] [address] [id number] [address] [place] [address], [place] [address] Sep, [facility] [address] [id number] [address] [place] [address], [place] [address] Sep, [facility] [address] [id number] [address] [place] [address], [place] [address] Sep, [facility] [address] [id number] [address] [place] [address], [place] [address] Sep, [facility] [address] [id number] [address] [place] [address], [place] [address] Sep, [facility] [address] [id number] [address] [place] [address], [place] [address] Aug, [facility] [address] [id number] [address] [place] [address], [place] [address] Aug, [facility] [address] [id number] [address] [place] [address], [place] [address] July, [facility] [address] [id number] [address] [place] [address], [place] [address] Jun, [facility] [address] [id number] [address] [place] [address], [place] [address] Jun, [facility] [address] [id number] [address] [place] [address], [place] [address] Jun, [facility] [address] [id number] [address] [place] [address], [place] [address] Apr, [facility] [address] [id number] [address] [place] [address], [place] [address] Apr, [facility] [address] [id number] [address] [place] [address], [place] [address] Apr, [facility] [address] [id number] [address] [place] [address], [place] [address] Mar, [facility] [address] [id number] [address] [place] [address], [place] [address] Mar, [facility] [address] [id number] [address] [place] [address], [place] [address] Mar, [facility] [address] [id number] [address] [place] [address], [place] [address] Mar, [facility] [address] [id number] [address] [place] [address], [place] [address] Mar, [facility] [address] [id number] [address] [place] [address], [place] [address] 14 Feb, 2012 [facility] [address] [id number] [address] [place] [address], [place] [address] 14 Feb, 2012 [facility] [address] [id number] [address] [place] [address], [place] [address] 13 Jan, 2012 [facility] [address] [id number] [address] [place] [address], [place] [address] 13 Jan, 2012 [facility] [address] [id number] [address] [place] [address], [place] [address] 13 Jan, 2012 [facility] [address] [id number] [address] [place] [address], [place] [address] 13 Jan, 2012 [facility] [address] [id number] [address] [place] [address], [place] [address] 07 Jan, 2012 [facility] [address] [id number] [address] [address] Jan, [facility] [address] [id number] [address] [place] [address], [place] [address] Jan, [facility] [address] [id number] [address] [place] [address], [place] [address] Dec, [facility] [address] [id number] [address] [place] [address], [place] [address] Dec, [facility] [address] [id number] [address] [place] [id number] Dec, [facility] [address] [id number] [address] [place] [address], [place] [address] Dec, [facility] [address] [id number] [address] [place] [id number] Dec, [facility] [address] [id number] [address] [place] [address], [place] [address] Dec, [facility] [address] [id number] [address] [place] [address], [place] [address] Dec, [facility] [address] [id number] [address] [place] [address], [place] [address] Dec, [facility] [address] [id number] [address] [place] [id number] Dec, [facility] [address] [id number] [address] [place] [id number] Dec, [facility] [address] [id number] [address] [place] [id number] Oct, [facility] [address] [id number] [address] [place] [address], [place] [address] Oct, [facility] [address] [id number] [address] [place] [id number] Aug, [facility] [address] [id number] [address] [place] [id number] Aug, [facility] [address] [id number] [address] [place] [address], [place] [address] July, [facility] [address] [id number] [address] [place] [address], [place] [address] Jun, [facility] [address] [id number] [address] [place] [address], [place] [address] Jun, [facility] [address] [id number] [address] [place] [address], [place] [address] May, [facility] [address] [id number] [address] [place] [address], [place] [address] Apr, [facility] [address] [id number] [address] [place] [address], [place] [address] Apr, [facility] [address] [id number] [address] [place] [address], [place] [address] Mar, [facility] [address] [id number] [address] [place] [address], [place] [id number] Mar, [facility] [address] [id number] [address] [place] [address], [place] [id number] Feb, [facility] [address] [id number] [address] [place] [address], [place] [id number] 15 Feb, 2011 [facility] [address] [id number] [address] [place] [address], [place] [id number] 13 Feb, 2011 [facility] [address] [id number] [address] [place] [address], [place] [id number] Feb, [facility] [address] [id number] [address] [place] [address], [place] [id number] Jan, [facility] [address] [id number] [address] [place] [address], [place] [id number] 17 Dec, 2010 [facility] [address] [id number] [address] [place] [address], [place] [id number] 08 Feb, 2010 [facility] [address] [id number] [address] [place] [address], [place] [id number] Feb, [facility] [address] [id number] [address] [place] [id number] Feb, [facility] [address] [id number] [address] [place] [id number] Feb, [facility] [address] [id number] [address] [place] [phone] Dec, [facility] [address] [id number] [address] [place] [phone] Dec, [facility] [address] [id number] [address] [place] [phone] Oct, [facility] [address] [id number] [address] [place] [phone] Jun, [facility] [address] [id number] [address] [place] [phone] Feb, [facility] [address] [id number] [address] [place] [id number] Feb, [facility] [address] [id number] [address] [place] [phone] Feb, [facility] [address] [id number] [address] [place] [phone] Dec, IMMUNIZATIONS No Known Immunizations SOCIAL HISTORY [...]
--- OUTSIDE RECORDS SUMMARY | 2019-10-19 12:38 | XMS REPORT ---
Author Author Mary Jane Mcginnis Doctor Organization [facility] Address Unknown Phone Unavailable Care Team Providers Care Rug Clipper Name Role Phone Migration, Doctor Unavailable Unavailable PROBLEMS Type Condition ICD9-CM Code [id number] Code Onset Dates Condition S tatus SNOMED Code Problem Factor V Leiden D68.51 Active 3070 36607 Problem Thyroid follicular adenoma D34 Act phylicia 493854159 Problem Hypertriglyceridemia E78.1 Active 202388561 Problem History of DVT (deep vein thrombosis) Z86.718 Active 977115137 Problem Presence of IVC filter Z95.828 Active 898550366 Problem 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 Active 486424814 Problem Pelvic pain R10.2 Active 58639369 Problem Morbid obesity E66.01 Active 58980 6002 Problem Generalized anxiety disorder F41.1 A ctive 988572790 Problem Obstructive sleep apnea G47.33 Active 40837061 Problem longterm (current) 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 Z79.01 Active 206452404 Problem Peripheral edema R60.9 Active 271 560964 Problem Excessive daytime sleepiness G47.19 A ctive 264665649848 Problem Gastroesophageal reflux disease, esophagitis pre sence not specified K21.9 Active 657488926 Problem Thyroid nodule E04.1 Active 85343 5005 ALLERGIES No Information ENCOUNTERS Encounter Location Date Diagnosis [facility] [address] [facility] [id number] [address] [place] [address] July, [facility] [address] [facility] [id number] [address] [place] [address] July, [facility] [address] [place] [id number] [address] [place] [address] Jun, [facility] [address] [facility] [id number] [address] [place] [address] Jun, [facility] [address] [facility] [id number] [address] [place] [address] Jun, Closed compression fracture of L3 lumbar vertebra with routine healing, subsequent encounter S32.030D and Drug-induced constipation K59.03 [facility] [address] [facility] [id number] [place] [phone] Jun, [facility] [address] [facility] [id number] [address] [place] [address] Jun, [facility] [address] [place] [id number] [place] [address] Apr, [facility] [address] [facility] [id number] [place] [address] Apr, Morbid obesity E66.01 [facility] [address] [place] [id number] [place] [address] Apr, Morbid obesity E66.01 ; Hype rtriglyceridemia E78.1 ; Gastroesophageal reflux disease, esophagitis presence not specified K21.9 and Joint pain M25.50 [facility] [address] [place] [id number] [address] [place] [address] Feb, [facility] [address] [address] Feb, [facility] [address] [place] [id number] [address] [place] [address] Jan, Acute bacterial conjunctivit is H10.30 [facility] [address] [place] [id number] [address] [place] [address] Dec, [facility] [address] [facility] [id number] [address] [place] [address] Dec, [facility] [address] [place] [id number] [place] [address] Nov, [facility] [address] [facility] [id number] [address] [place] [address] 07 Nov, 2017 Obstructive sleep apnea G47. 33 ; Morbid obesity E66.01 and Gastroesophageal reflux disease, esophagitis presence not specified K21.9 [facility] [address] [id number] [address] [place] [id number] 06 Nov, 2017 Encounter for examination of eyes and vision without abnormal findings Z01.00 [facility] [address] [facility] [id number] [address] [place] [address] Oct, Thyroid nodule E04.1 and Scr eening for breast cancer Z12.31 [facility] [address] [facility] [id number] [address] [place] [address] Oct, History of DVT (deep vein th rombosis) Z86.718 ; Thyroid nodule E04.1 and Gastroesophageal reflux disease, esophagitis presence not specified K21.9 [facility] [address] [facility] [id number] [address] [place] [address] Oct, [place] [address] [place] [id number] [address] [place] [address] Sep, [place] [address] [facility] [id number] [address] [place] [address] Aug, [place] [address] [facility] [id number] [address] [place] [address] Aug, [place] [address] [place] [id number] [place] [address] Aug, Acute pain of left shoulder M25.512 and Thyroid nodule E04.1 [place] [address] [facility] [id number] [address] [place] [address] July, Superior glenoid labrum lesi on of left shoulder, subsequent encounter S43.432D [place] [address] [facility] [id number] [address] [place] [address] Jun, History of DVT (deep vein th rombosis) Z86.718 [facility] [address] [facility] [id number] [address] [place] [address] Jun, History of DVT (deep vein th rombosis) Z86.718 [place] [address] [place] [id number] [address] [place] [address] Jun, Impingement syndrome, should er, left M75.42 [place] [address] [place] [id number] [place] [address] May, Subacromial bursitis of left shoulder joint M75.52 [place] [address] [address] May, [place] [address] [address] May, Hypertriglyceridemia E78.1 ; longterm (current) 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 Z79.01 and Excessive daytime sleepiness G47.19 [place] [address] [address] May, History of DVT (deep vein th rombosis) Z86.718 ; Generalized anxiety disorder F41.1 ; Hypertriglyceridemia E78.1 ; longterm (current) 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 Z79.01 ; Subacromial bursitis of left shoulder joint M75.52 and Excessive daytime sleepiness G47.19 [place] [address] [place] [id number] [address] [place] [address] May, [place] [address] [address] May, 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 [place] [address] [place] [id number] [address] [place] [address] Apr, 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 [place] [address] [facility] [id number] [address] [place] [address] Apr, longterm (current) 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 Z79.01 [place] [address] [place] [id number] [address] [place] [address] Apr, longterm (current) 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 Z79.01 [place] [id number] [place] [address] Apr, [facility] [address] [id number] [address] [place] [address] Apr, longterm (current) 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 Z79.01 [facility] [address] [id number] [address] [place] [address] Apr, 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 [facility] [address] [id number] [address] [place] [address] Apr, 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 [facility] [address] [id number] [address] [place] [address] Apr, longterm (current) 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 Z79.01 [facility] [address] [id number] [address] [place] [address] Apr, 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 [facility] [address] [id number] [address] [place] [address] Apr, longterm (current) 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 Z79.01 [facility] [address] [id number] [address] [place] [address] Mar, longterm (current) 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 Z79.01 [facility] [address] [id number] [address] [place] [address] Mar, [facility] [address] [id number] [address] [place] [address] Mar, 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 [facility] [address] [id number] [address] [place] [id number] Jan, Dental examination Z01.20 [facility] [address] [id number] [address] [place] [address] [id number] Jan, [facility] [address] [id number] [address] [place] [address] Jan, longterm (current) 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 Z79.01 [facility] [address] [id number] [address] [place] [address] Jan, History of DVT (deep vein th rombosis) Z86.718 [facility] [address] [facility] [id number] [address] [place] [address] Jan, Generalized anxiety disorder F41.1 and Peripheral edema R60.9 [place] [address] [facility] [id number] [address] [place] [address] Nov, History of DVT (deep vein th rombosis) Z86.718 [place] [address] [facility] [id number] [address] [place] [address] Nov, 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 [facility] [address] [id number] [address] [place] [address] Nov, Acute non-recurrent maxillar y sinusitis J01.00 [facility] [address] [id number] [address] [place] [address] Oct, longterm (current) 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 Z79.01 [facility] [address] [facility] [id number] [address] [place] [address] Oct, Personal history of venous t hrombosis and embolism Z86.718 [facility] [address] [id number] [address] [place] [address] Sep, [facility] [address] [facility] [id number] [address] [place] [address] Sep, Personal history of venous t hrombosis and embolism Z86.718 [facility] [address] [facility] [id number] [address] [place] [address] Sep, 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 [facility] [address] [facility] [id number] [address] [place] [address] Sep, longterm (current) 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 Z79.01 [place] [address] [facility] [id number] [address] [place] [address] Sep, Generalized anxiety disorder F41.1 and History of DVT (deep vein thrombosis) Z86.718 [place] [address] [facility] [id number] [address] [place] [address] Aug, History of DVT (deep vein th rombosis) Z86.718 ; Generalized anxiety disorder F41.1 ; 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 ; Pelvic pain R10.2 ; Hypertriglyceridemia E78.1 ; Excessive daytime sleepiness G47.19 ; Colon cancer screening Z12.11 ; Screening for breast cancer Z12.39 ; Peripheral edema R60.9 and Gastroesophageal reflux disease, esophagitis presence not specified K21.9 [place] [address] [facility] [id number] [address] [place] [address] Aug, [place] [address] [place] [id number] [address] [place] [address] July, [place] [address] [place] [id number] [address] [place] [address] July, History of DVT (deep vein th rombosis) Z86.718 [place] [address] [facility] [id number] [address] [place] [address] Jun, Generalized anxiety disorder F41.1 [place] [address] [facility] [id number] [address] [place] [address] Jun, History of DVT (deep vein th rombosis) Z86.718 [place] [address] [facility] [id number] [address] [place] [address] Jun, History of DVT (deep vein th rombosis) Z86.718 [place] [address] [facility] [id number] [address] [place] [address] Jun, History of DVT (deep vein th rombosis) Z86.718 [facility] [address] [facility] [id number] [address] [place] [address] Jun, History of DVT (deep vein th rombosis) Z86.718 [facility] [address] [facility] [id number] [address] [place] [address] May, History of DVT (deep vein th rombosis) Z86.718 [facility] [address] [facility] [id number] [address] [place] [address] May, longterm (current) 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 Z79.01 [place] [address] [place] [id number] [address] [place] [address] May, 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 [facility] [address] [place] [id number] [address] [place] [address] May, History of DVT (deep vein th rombosis) Z86.718 [facility] [address] [facility] [id number] [address] [place] [address] Apr, Bacterial conjunctivitis of left eye H10.9 and H/O motion sickness Z87.898 [facility] [address] [facility] [id number] [address] [place] [address] Apr, History of DVT (deep vein th rombosis) Z86.718 [facility] [address] [facility] [id number] [address] [place] [address] Apr, History of DVT (deep vein th rombosis) Z86.718 [facility] [address] [facility] [id number] [address] [place] [address] Apr, History of DVT (deep vein th rombosis) Z86.718 [facility] [address] [place] [id number] [address] [place] [address] 14 Apr, 2016 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 [facility] [address] [id number] [address] [place] [address] Mar, [facility] [address] [id number] [address] [place] [address] Mar, longterm (current) 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 Z79.01 [facility] [address] [id number] [address] [place] [address] Mar, Hypertriglyceridemia E78.1 a nd longterm (current) 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 Z79.01 [facility] [address] [id number] [address] [place] [address] Feb, longterm (current) 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 Z79.01 [place] [address] [id number] [address] [place] [address] Feb, longterm (current) 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 Z79.01 [facility] [address] [id number] [address] [place] [address] Feb, longterm (current) 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 Z79.01 [facility] [address] [id number] [address] [place] [address] Dec, [facility] [address] [id number] [address] [place] [address] Nov, [facility] [address] [id number] [address] [place] [address] 13 Nov, 2015 History of DVT (deep vein th rombosis) Z86.718 ; Tremulousness R25.1 ; Generalized anxiety disorder F41.1 ; Peripheral edema R60.9 and Hypertriglyceridemia E78.1 [facility] [address] [id number] [address] [place] [address] Oct, History of DVT (deep vein th rombosis) Z86.718 [facility] [address] [id number] [address] [place] [address] Oct, [facility] [address] [id number] [address] [place] [address] Sep, History of DVT (deep vein th rombosis) Z86.718 [place] [address] [id number] [address] [place] [address] Sep, 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 [place] [address] [id number] [address] [place] [address] July, [place] [address] [id number] [address] [place] [address] July, 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 [place] [address] [facility] [id number] [address] [place] [address] July, 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 [place] [address] [facility] [id number] [address] [place] [address] Jun, longterm (current) 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 Z79.01 [facility] [place] [address] [facility] [id number] [address] [place] [address] Jun, Coccyx pain M53.3 ; Encounte r for therapeutic drug level monitoring Z51.81 and longterm current use 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.01 [facility] [address] [id number] [address] [place] [address] May, Abnormal mammogram R92.8 [facility] [address] [facility] [id number] [address] [place] [address] May, [facility] [place] [address] [facility] [id number] [address] [place] [address] May, Acute vaginitis N76.0 and En counter for other screening for malignant neoplasm of breast Z12.39 [place] [address] [id number] [address] [place] [address] Apr, [facility] [address] [facility] [id number] [address] [place] [address] Apr, [facility] [address] [facility] [id number] [address] [place] [address] Apr, Peripheral edema R60.9 [facility] [address] [facility] [id number] [address] [place] [address] Apr, 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 [facility] [address] [facility] [id number] [address] [place] [address] Apr, Peripheral edema R60.9 and L jose martin term (current) 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 Z79.01 [facility] [address] [facility] [id number] [address] [place] [address] Apr, 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 [facility] [address] [facility] [id number] [address] [place] [address] Apr, [facility] [address] [facility] [id number] [address] [place] [address] Apr, longterm (current) 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 Z79.01 [facility] [address] [facility] [id number] [address] [place] [address] Apr, Peripheral edema R60.9 [facility] [address] [facility] [id number] [address] [place] [address] Mar, longterm (current) 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 Z79.01 [facility] [address] [facility] [id number] [address] [place] [address] Mar, 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 and Hypertriglyceridemia E78.1 [facility] [address] [facility] [id number] [address] [place] [address] Mar, 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 [place] [address] [id number] [address] [place] [address] Mar, longterm (current) 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 Z79.01 [place] [address] [id number] [address] [place] [address] Mar, [place] [address] [id number] [address] [place] [address] Mar, longterm (current) 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 Z79.01 ; Hypertriglyceridemia E78.1 ; Personal history of venous thrombosis and embolism Z86.718 and Lump R22.9 [place] [address] [id number] [address] [place] [address] Mar, Personal history of venous t hrombosis and embolism Z86.718 [place] [address] [id number] [address] [place] [address] Mar, Personal history of venous t hrombosis and embolism Z86.718 [place] [address] [id number] [address] [place] [address] Mar, [place] [address] [id number] [address] [place] [address] Dec, Personal history of venous t hrombosis and embolism Z86.718 [place] [address] [id number] [address] [place] [address] Dec, Personal history of venous t hrombosis and embolism V12.51 [place] [address] [id number] [address] [place] [address] Nov, Personal history of venous t hrombosis and embolism V12.51 [place] [address] [id number] [address] [place] [address] Nov, Personal history of venous t hrombosis and embolism V12.51 [place] [address] [id number] [address] [place] [phone] Nov, Personal history of venous t hrombosis and embolism V12.51 [facility] [address] [id number] [address] [place] [phone] Nov, Personal history of venous t hrombosis and embolism V12.51 [place] [address] [id number] [address] [place] [phone] Nov, [place] [address] [id number] [address] [place] [phone] Oct, Dysuria 788.1 [place] [address] [id number] [address] [place] [phone] Oct, Personal history of venous t hrombosis and embolism V12.51 [place] [address] [id number] [address] [place] [phone] Oct, [place] [address] [id number] [address] [place] [phone] Oct, Personal history of venous t hrombosis and embolism V12.51 [place] [address] [id number] [address] [place] [phone] Sep, Personal history of venous t hrombosis and embolism V12.51 [place] [address] [id number] [address] [place] [id number] Sep, Personal history of venous t hrombosis and embolism V12.51 [place] [address] [id number] [address] [place] [id number] Aug, Personal history of venous t hrombosis and embolism V12.51 [place] [address] [id number] [address] [place] [id number] Aug, Personal history of venous t hrombosis and embolism V12.51 [place] [address] [id number] [address] [place] [id number] 15 Aug, 2014 Personal history of venous t hrombosis and embolism V12.51 [facility] [address] [id number] [address] [place] [phone] July, Generalized anxiety disorder 300.02 ; Abdominal pain, left lower quadrant 789.04 and Personal history of venous thrombosis and embolism V12.51 [facility] [facility] [address] [id number] [address] [place] [id number] 14 Jun, 2014 [facility] [address] [id number] [address] [place] [id number] Jun, [facility] [address] [id number] [address] [place] [id number] May, [facility] [address] [id number] [address] [place] [id number] May, [facility] [address] [id number] [address] [place] [id number] May, [facility] [address] [id number] [address] [place] [id number] May, [facility] [address] [id number] [address] [place] [id number] May, [facility] [address] [id number] [address] [place] [id number] May, [facility] [address] [id number] [address] [place] [id number] May, [facility] [address] [id number] [address] [place] [id number] May, [facility] [address] [id number] [address] [place] [id number] Apr, [facility] [address] [id number] [address] [place] [id number] Apr, [facility] [address] [id number] [address] [place] [id number] Apr, [facility] [address] [id number] [address] [place] [address], [place] [address] Apr, [facility] [address] [id number] [address] [place] [address], [place] [address] Apr, [facility] [address] [id number] [address] [place] [address], [place] [address] Mar, [facility] [address] [id number] [address] [place] [address], [place] [address] Mar, [facility] [address] [id number] [address] [place] [address], [place] [address] Mar, [facility] [address] [id number] [address] [place] [address], [place] [address] Mar, [facility] [address] [id number] [address] [place] [address], [place] [address] Mar, [facility] [address] [id number] [address] [place] [address], [place] [address] Mar, [facility] [address] [id number] [address] [place] [address], [place] [address] Feb, [facility] [address] [id number] [address] [place] [address], [place] [address] Feb, [facility] [address] [id number] [address] [place] [address], [place] [address] Feb, [facility] [address] [id number] [address] [place] [address], [place] [address] Feb, [facility] [address] [id number] [address] [place] [address], [place] [address] Feb, [facility] [address] [id number] [address] [place] [address], [place] [address] Feb, [facility] [address] [id number] [address] [place] [address], [place] [address] Feb, [facility] [address] [id number] [address] [place] [address], [place] [address] Feb, [facility] [address] [id number] [address] [place] [address], [place] [address] Feb, [facility] [address] [id number] [address] [place] [address], [place] [address] Feb, [facility] [address] [id number] [address] [place] [address], [place] [address] Jan, [facility] [address] [id number] [address] [place] [address], [place] [address] Jan, [facility] [address] [id number] [address] [place] [address], [place] [address] Jan, [facility] [address] [id number] [address] [place] [address], [place] [address] Jan, [facility] [address] [id number] [address] [place] [address], [place] [address] Jan, [facility] [address] [id number] [address] [place] [address], [place] [address] Jan, [facility] [address] [id number] [address] [place] [address], [place] [address] Jan, [facility] [address] [id number] [address] [place] [id number] Jan, [facility] [address] [id number] [address] [place] [id number] Jan, [facility] [address] [id number] [address] [place] [id number] Jan, [facility] [address] [id number] [address] [place] [address], [place] [address] Dec, [facility] [address] [id number] [address] [place] [address], [place] [address] Dec, [facility] [address] [id number] [address] [place] [id number] Dec, [facility] [address] [id number] [address] [place] [address] Dec, [facility] [address] [id number] [address] [place] [address], [place] [address] Dec, [facility] [address] [id number] [address] [place] [address], [place] [address] Dec, [facility] [address] [id number] [address] [place] [address], [place] [address] Dec, [facility] [address] [id number] [address] [place] [address], [place] [address] Dec, [facility] [address] [id number] [address] [place] [address], [place] [address] Dec, [facility] [address] [id number] [address] [place] [address], [place] [address] Dec, [facility] [address] [id number] [address] [place] [address], [place] [address] Dec, [facility] [address] [id number] [address] [place] [address], [place] [address] Dec, [facility] [address] [id number] [address] [place] [address], [place] [address] Dec, [facility] [address] [id number] [address] [place] [address], [place] [address] Dec, [facility] [address] [id number] [address] [place] [address], [place] [address] Dec, [facility] [address] [id number] [address] [place] [address], [place] [address] Nov, [facility] [address] [id number] [address] [place] [address], [place] [address] 30 Nov, 2013 [facility] [address] [id number] [address] [place] [address], [place] [address] Nov, [facility] [address] [id number] [address] [place] [address], [place] [address] Nov, 2013 [facility] [address] [id number] [facility] [place] [address] 24 Sep, 2013 [facility] [address] [id number] [facility] [place] [address] 24 Sep, 2013 [facility] [address] [id number] [facility] [place] [address] 23 Sep, 2013 [facility] [address] [id number] [facility] [place] [address] 23 Sep, 2013 [facility] [address] [id number] [facility] [place] [address] 18 Sep, 2013 [facility] [address] [id number] [address] [place] [address], [place] [address] 18 Nov, 2013 [facility] [address] [id number] [address] [place] [address], [place] [address] 17 Nov, 2013 [facility] [address] [id number] [address] [place] [address], [place] [address] 17 Nov, 2013 [facility] [address] [id number] [address] [place] [address], [place] [address] 11 Nov, 2013 [facility] [address] [id number] [address] [place] [address], [place] [address] 11 Nov, 2013 [facility] [address] [id number] [address] [place] [address], [place] [address] 10 Nov, 2013 [facility] [address] [id number] [address] [place] [address], [place] [address] 10 Nov, 2013 [facility] [address] [id number] [address] [place] [address], [place] [address] 08 Nov, 2013 [facility] [address] [id number] [address] [place] [address], [place] [address] 08 Nov, 2013 [facility] [address] [id number] [address] [place] [address], [place] [address] 22 Sep, 2013 [facility] [address] [id number] [address] [place] [address], [place] [address] Sep, [facility] [address] [id number] [facility] [place] [address] Sep, [facility] [address] [id number] [facility] [place] [address] Sep, [facility] [address] [id number] [facility] [place] [address] Sep, [facility] [address] [id number] [facility] [place] [address] Sep, [facility] [address] [id number] [facility] [place] [address] Aug, [facility] [address] [id number] [address] [place] [address], [place] [address] Aug, [facility] [address] [id number] [address] [place] [address], [place] [address] Aug, [facility] [address] [id number] [address] [place] [address], [place] [address] Aug, [facility] [address] [id number] [address] [place] [address], [place] [address] Aug, [facility] [address] [id number] [address] [place] [address], [place] [address] Aug, [facility] [address] [id number] [address] [place] [address], [place] [address] Aug, [facility] [address] [id number] [address] [place] [address], [place] [address] Aug, [facility] [address] [id number] [address] [place] [address], [place] [address] Aug, [facility] [address] [id number] [address] [place] [address], [place] [address] Aug, [facility] [address] [id number] [address] [place] [address], [place] [address] Aug, [facility] [address] [id number] [address] [place] [address], [place] [address] July, [facility] [address] [id number] [address] [place] [address], [place] [address] July, [facility] [address] [id number] [address] [place] [address], [place] [address] Jun, [facility] [address] [id number] [address] [place] [address], [place] [address] Jun, [facility] [address] [id number] [address] [place] [address], [place] [address] Jun, [facility] [address] [id number] [address] [place] [address], [place] [address] Jun, [facility] [address] [id number] [address] [place] [address], [place] [address] Jun, [facility] [address] [id number] [address] [place] [address], [place] [address] Jun, [facility] [address] [id number] [address] [place] [address], [place] [address] Jun, [facility] [address] [id number] [address] [place] [address], [place] [address] Jun, [facility] [address] [id number] [address] [place] [address], [place] [address] Jun, [facility] [address] [id number] [address] [place] [address], [place] [address] Jun, [facility] [address] [id number] [address] [place] [address], [place] [address] Jun, [facility] [address] [id number] [address] [place] [address], [place] [address] Jun, [facility] [address] [id number] [address] [place] [address], [place] [address] May, [facility] [address] [id number] [address] [place] [address], [place] [address] May, [facility] [address] [id number] [facility] [place] [address] May, [facility] [address] [id number] [facility] [place] [address] May, [facility] [address] [id number] [facility] [place] [address] May, [facility] [address] [id number] [address] [place] [address], [place] [address] May, [facility] [address] [id number] [address] [place] [address], [place] [address] May, [facility] [address] [id number] [address] [place] [address], [place] [address] May, [facility] [address] [id number] [address] [place] [address], [place] [address] May, [facility] [address] [id number] [address] [place] [address], [place] [address] May, [facility] [address] [id number] [address] [place] [address], [place] [address] May, [facility] [address] [id number] [address] [place] [address], [place] [address] May, [facility] [address] [id number] [address] [place] [address], [place] [address] Apr, [facility] [address] [id number] [address] [place] [address], [place] [address] Apr, [facility] [address] [id number] [address] [place] [address], [place] [address] Apr, [facility] [address] [id number] [address] [place] [address], [place] [address] Apr, [facility] [address] [id number] [address] [place] [address], [place] [address] Apr, [facility] [address] [id number] [address] [place] [address], [place] [address] Apr, [facility] [address] [id number] [address] [place] [address], [place] [address] Apr, [facility] [address] [id number] [address] [place] [address], [place] [address] Apr, [facility] [address] [id number] [address] [place] [address], [place] [address] Apr, [facility] [address] [id number] [address] [place] [address], [place] [address] Apr, [facility] [address] [id number] [address] [place] [address], [place] [address] Apr, [facility] [address] [id number] [address] [place] [address], [place] [address] Apr, [facility] [address] [id number] [address] [place] [address], [place] [address] Apr, [facility] [address] [id number] [address] [place] [address], [place] [address] Apr, [facility] [address] [id number] [address] [place] [address], [place] [address] Apr, [facility] [address] [id number] [address] [place] [address], [place] [address] Apr, [facility] [address] [id number] [address] [place] [address], [place] [address] Apr, [facility] [address] [id number] [address] [place] [address], [place] [address] Jan, [facility] [address] [id number] [address] [place] [address], [place] [address] Jan, [facility] [address] [id number] [address] [place] [address] Jan, [facility] [address] [id number] [address] [place] [address] Jan, [facility] [address] [id number] [address] [place] [address], [place] [address] Jan, [facility] [address] [id number] [address] [place] [address], [place] [address] Jan, [facility] [address] [id number] [address] [place] [address], [place] [address] Jan, [facility] [address] [id number] [address] [place] [address], [place] [address] Dec, [facility] [address] [id number] [address] [place] [address], [place] [address] Dec, [facility] [address] [id number] [address] [place] [address], [place] [address] Dec, [facility] [address] [id number] [address] [place] [address], [place] [address] Nov, [facility] [address] [id number] [address] [place] [address], [place] [address] Nov, [facility] [address] [id number] [address] [place] [address], [place] [address] 05 Nov, 2012 [facility] [address] [id number] [address] [place] [address], [place] [address] Nov, [facility] [address] [id number] [address] [place] [address], [place] [address] Oct, [facility] [address] [id number] [address] [place] [id number] Oct, [facility] [address] [id number] [address] [place] [address], [place] [address] Oct, [facility] [address] [id number] [address] [place] [address], [place] [address] Oct, [facility] [address] [id number] [address] [place] [address], [place] [address] Oct, [facility] [address] [id number] [address] [place] [address], [place] [address] Sep, [facility] [address] [id number] [address] [place] [address], [place] [address] Sep, [facility] [address] [id number] [address] [place] [address], [place] [address] Sep, [facility] [address] [id number] [address] [place] [address], [place] [address] Sep, [facility] [address] [id number] [address] [place] [address], [place] [address] Sep, [facility] [address] [id number] [address] [place] [address], [place] [address] Sep, [facility] [address] [id number] [address] [place] [address], [place] [address] Sep, [facility] [address] [id number] [address] [place] [address], [place] [address] Aug, [facility] [address] [id number] [address] [place] [address], [place] [address] Aug, [facility] [address] [id number] [address] [place] [address], [place] [address] July, [facility] [address] [id number] [address] [place] [address], [place] [address] Jun, [facility] [address] [id number] [address] [place] [address], [place] [address] Jun, [facility] [address] [id number] [address] [place] [address], [place] [address] Jun, [facility] [address] [id number] [address] [place] [address], [place] [address] Apr, [facility] [address] [id number] [address] [place] [address], [place] [address] Apr, [facility] [address] [id number] [address] [place] [address], [place] [address] Apr, [facility] [address] [id number] [address] [place] [address], [place] [address] Mar, [facility] [address] [id number] [address] [place] [address], [place] [address] 24 Mar, 2012 [facility] [address] [id number] [address] [place] [address], [place] [address] 2012 [facility] [address] [id number] [address] [place] [address], [place] [address] Mar, [facility] [address] [id number] [address] [place] [address], [place] [id number] Mar, [facility] [address] [id number] [address] [place] [address], [place] [id number] 14 Feb, 2012 [facility] [address] [id number] [address] [place] [address], [place] [id number] 14 Feb, 2012 [facility] [address] [id number] [address] [place] [id number] Jan, [facility] [address] [id number] [address] [place] [address], [place] [id number] Jan, [facility] [address] [id number] [address] [place] [id number] Jan, [facility] [address] [id number] [address] [place] [id number] Jan, [facility] [address] [id number] [address] [place] [id number] Jan, [facility] [address] [id number] [address] [place] [address], [place] [id number] Jan, [facility] [address] [id number] [address] [place] [address], [place] [id number] 06 Jan, 2012 [facility] [address] [id number] [address] [place] [id number] 31 Dec, 2011 [facility] [address] [id number] [address] [place] [id number] Dec, [facility] [address] [id number] [address] [place] [address], [place] [id number] Dec, [facility] [address] [id number] [address] [place] [address], [place] [id number] Dec, [facility] [address] [id number] [address] [place] [address], [place] [id number] Dec, [facility] [address] [id number] [address] [place] [address], [place] [id number] Dec, [facility] [address] [id number] [address] [place] [address], [place] [id number] Dec, [facility] [address] [id number] [address] [place] [address], [place] [id number] Dec, [facility] [address] [id number] [address] [place] [address], [place] [id number] Dec, [facility] [address] [id number] [address] [place] [address], [place] [id number] Dec, [facility] [address] [id number] [address] [place] [address], [place] [id number] Oct, [facility] [address] [id number] [address] [place] [address], [place] [id number] Oct, [facility] [address] [id number] [address] [place] [address], [place] [id number] Aug, [facility] [address] [id number] [address] [place] [address], [place] [id number] Aug, [facility] [address] [id number] [address] [place] [address], [place] [id number] July, [facility] [address] [id number] [address] [place] [address], [place] [id number] Jun, [facility] [address] [id number] [address] [place] [address], [place] [id number] Jun, [facility] [address] [id number] [address] [place] [address], [place] [id number] May, [facility] [address] [id number] [address] [place] [address], [place] [id number] Apr, [facility] [address] [id number] [address] [place] [address], [place] [id number] 16 Apr, 2011 [facility] [address] [id number] [address] [place] [address], [place] [id number] Mar, [facility] [address] [id number] [address] [place] [address], [place] [id number] Mar, [facility] [address] [id number] [address] [place] [address], [place] [id number] 19 Feb, 2011 [facility] [address] [id number] [address] [place] [address], [place] [id number] 15 Feb, 2011 [facility] [address] [id number] [address] [place] [address], [place] [id number] 13 Feb, 2011 [facility] [address] [id number] [address] [place] [address], [place] [id number] Feb, [facility] [address] [id number] [address] [place] [address], [place] [id number] Jan, [facility] [address] [id number] [address] [place] [address], [place] [id number] 17 Dec, 2010 [facility] [address] [id number] [address] [place] [address], [place] [id number] 08 Feb, 2010 [facility] [address] [id number] [address] [place] [address], [place] [id number] 02 Feb, 2010 [facility] [address] [id number] [address] [place] [address], [place] [id number] Feb, [facility] [address] [id number] [address] [place] [address], [place] [id number] Feb, [facility] [address] [id number] [address] [place] [address], [place] [id number] 15 Dec, 2009 [facility] [address] [id number] [address] [place] [id number] 15 Dec, 2009 [facility] [address] [id number] [address] [place] [id number] Oct, [facility] [address] [id number] [address] [place] [id number] Jun, [facility] [address] [id number] [address] [place] [id number] Feb, [facility] [address] [id number] [address] [place] [id number] Feb, [facility] [address] [id number] [address] [place] [id number] Feb, [facility] [address] [id number] [address] [place] [id number] Dec, IMMUNIZATIONS No Known Immunizations SOCIAL HISTORY Never Assessed REASON FOR VISIT [facility] PLAN OF CARE VITAL SIGNS MEDICATIONS Unknown Medications RESULTS No Results PROCEDURES No Known procedures INSTRUCTIONS MEDICATIONS ADMINISTERED No Known Medications MEDICAL (GENERAL) HISTORY Type Description Date Medical History obesity Medical History Hematologic disorder factor clotting pro [place] Medical History DVT's Medical History Torn Rotator Cuff, repaired 09/23/17 Surgical History Lap Band 10/2012 Surgical History section 1985, 1987 Surgical History cholecystectomy Surgical History [place] Filter 06/2009 Surgical History Left leg exploratory surgery r/t clot 19 Surgical History left shoulder surgery 09/14/17 Surgical History lap band removed 12/2017 Hospitalization History Ruptured Ovarian Cyst with abd bleed ing 11/2009 Hospitalization History Broken Back 06/2018
[2019-10-19] MEDS ORDERED: PROPOFOL INJECTION 50 ML IV ONE (12:39)
--- NOTE | 2019-10-19 12:46 | Progress Note-Pre Operative ---
Pre-Operative Progress Note H&P Reviewed The H&P was reviewed, patient examined and no changes noted. Date Seen by Provider: Oct 19, 2019 Time Seen by Provider: 12:45 Date H&P Reviewed: Oct 19, 2019 Time H&P Reviewed: 12:45 Pre-Operative Diagnosis: iron def anemia RICKI DIMAS DO Oct 19, 2019 12:46
--- OUTSIDE RECORDS SUMMARY | 2019-10-19 12:47 | XMS REPORT ---
Author Author Mary Jane Mcginnis Doctor Organization [facility] Address Unknown Phone Unavailable Care Team Providers Care Taxation Economist Name Role Phone Migration, Doctor Unavailable Unavailable PROBLEMS Type Condition ICD9-CM Code AMM32-SZ Code Onset Dates Condition S tatus SNOMED Code Problem Thyroid follicular adenoma D34 Act phylicia 569609748 Problem History of DVT (deep vein thrombosis) Z86.718 Active 863961250 Problem Factor V Leiden D68.51 Active 3070 45195 Problem [facility] (current) use of anticoagulants Z79.01 Active 488307680 Problem Hypertriglyceridemia E78.1 Active 981632280 Problem 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 Active 399724563 Problem Pelvic pain R10.2 Active 76254208 Problem Peripheral edema R60.9 Active 271 878052 Problem Moderate episode of recurrent major depressive disorder F33.1 Active 925671512 Problem Presence of IVC filter Z95.828 Active 082619999 Problem Vitamin D deficiency E55.9 Active 77169982 Problem Generalized anxiety disorder F41.1 A ctive 146281701 Problem Excessive daytime sleepiness G47.19 A ctive 379394040438 Problem Gastroesophageal reflux disease, esophagitis pre sence not specified K21.9 Active 104620037 Problem Thyroid nodule E04.1 Active 24662 5005 Problem Morbid obesity E66.01 Active 05150 6002 ALLERGIES No Information ENCOUNTERS Encounter Location Date Diagnosis [place] [id number] [place] [address] 12 Apr, 2019 Back pain with history of spinal surgery M54.9 [place] [address] [address] Apr, [place] [address] [address] 10 Apr, 2019 Gastroenteritis K52.9 ; Back pain with h istory of spinal surgery M54.9 ; Dermatofibroma of lower leg, unspecified laterality D23.70 and Morbid obesity E66.01 [place] [address] [address] Mar, [place] [address] [address] Jan, [place] [address] [address] Jan, [place] [address] [address] Dec, Encounter for weight management Z76.89 [place] [address] [address] Dec, Encounter for weight management Z76.89 a nd Screening mammogram, encounter for Z12.31 [place] [address] [address] Nov, Encounter for weight management Z76.89 [place] [address] [address] Nov, Thyroid nodule E04.1 [place] [address] [address] Nov, Thyroid nodule E04.1 [place] [address] [address] Nov, Thyroid nodule E04.1 [place] [address] [address] Oct, Syncope, unspecified syncope type R55 an d Encounter for weight management Z76.89 [place] [address] [address] Oct, Morbid obesity E66.01 [place] [address] [address] Oct, Hypertriglyceridemia E78.1 [place] [address] [address] Oct, [place] [address] [address] Oct, Hypertriglyceridemia E78.1 [facility] [address] [address] Sep, Hypertriglyceridemia E78.1 and Vitamin D deficiency E55.9 [facility] [address] [address] Sep, [facility] [address] [address] Sep, Morbid obesity E66.01 ; Moderate episode of recurrent major depressive disorder F33.1 ; Hypertriglyceridemia E78.1 and Vitamin D deficiency E55.9 [facility] [address] [address] Aug, [facility] [address] [address] July, [facility] [address] [address] July, [facility] [address] [address] Jun, [facility] [address] [address] Jun, [facility] [address] [address] Jun, Closed compression fracture of L3 lumbar vertebra with routine healing, subsequent encounter S32.030D and Drug-induced constipation K59.03 [facility] [address] [address] Jun, [facility] [address] [address] Jun, [facility] [address] [address] Apr, [facility] [address] [address] Apr, Morbid obesity E66.01 [facility] [address] [place] [address] 12 Apr, 2018 Morbid obesity E66.01 ; Hypertriglycerid emia E78.1 ; Gastroesophageal reflux disease, esophagitis presence not specified K21.9 and Joint pain M25.50 [facility] [id number] [place] [address] Feb, [facility] [id number] [place] [address] Feb, [facility] [address] [facility] [id number] [address] [address] Jan, Acute bacterial conjunctivit is H10.30 [facility] [address] [address] 08 Dec, 2017 [facility] [address] [address] 04 Dec, 2017 [facility] [address] [address] 17 Nov, 2017 [facility] [address] [address] 07 Nov, 2017 Obstructive sleep apnea G47.33 ; Morbid obesity E66.01 and Gastroesophageal reflux disease, esophagitis presence not specified K21.9 [facility] [address] [facility] [place] [id number] 06 Nov, 2017 Encounter for examination of eyes and vi ray without abnormal findings Z01.00 [facility] [address] [place] [address] 31 Oct, 2017 Thyroid nodule E04.1 and Screening for b reast cancer Z12.31 [facility] [address] [place] [address] 23 Oct, 2017 History of DVT (deep vein thrombosis) Z8 6.718 ; Thyroid nodule E04.1 and Gastroesophageal reflux disease, esophagitis presence not specified K21.9 [facility] [address] [address] Oct, [facility] [address] [address] Sep, [place] [address] [address] Aug, [place] [address] [address] Aug, [place] [address] [address] Aug, Acute pain of left shoulder M25.512 and Thyroid nodule E04.1 [place] [address] [address] July, Superior glenoid labrum lesion of left mehdi roy, subsequent encounter S43.432D [place] [address] [address] Jun, History of DVT (deep vein thrombosis) Z8 6.718 [place] [address] [address] Jun, History of DVT (deep vein thrombosis) Z8 6.718 [place] [address] [address] Jun, Impingement syndrome, shoulder, left M75 .42 [place] [address] [address] May, Subacromial bursitis of left shoulder saurabh int M75.52 [place] [address] [address] May, [address] [address] May, Hypertriglyceridemia E78.1 ; 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 and Excessive daytime sleepiness G47.19 [place] [address] [address] May, History of DVT (deep vein thrombosis) Z8 6.718 ; Generalized anxiety disorder F41.1 ; Hypertriglyceridemia E78.1 ; 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 ; Subacromial bursitis of left shoulder joint M75.52 and Excessive daytime sleepiness G47.19 [place] [address] [address] May, [place] [address] [address] May, 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 [place] [address] [address] Apr, [facility] (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 Z79.01 [place] [address] [address] Apr, 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 [place] [address] [address] 20 Apr, 2017 [facility] (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 Z79.01 [place] [address] [address] Apr, [place] [address] [address] 16 Apr, 2017 [facility] (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 Z79.01 [place] [address] [address] 13 Apr, 2017 [facility] (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 Z79.01 [place] [address] [address] Apr, [facility] (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 Z79.01 [place] [address] [address] Apr, 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 [place] [address] [address] 07 Apr, 2017 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 [place] [address] [address] Apr, [facility] (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 Z79.01 [facility] [address] [address] Mar, 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 [facility] [address] [address] Mar, [facility] [address] [address] Mar, [facility] (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 Z79.01 [facility] [address] [id number] Jan, Dental examination Z01.20 [facility] [address] [id number] Jan, [facility] [address] [address] Jan, [facility] (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 Z79.01 [facility] [address] [address] Jan, History of DVT (deep vein thrombosis) Z8 6.718 [place] [address] [address] Jan, Generalized anxiety disorder F41.1 and P eripheral edema R60.9 [facility] [address] [address] Nov, History of DVT (deep vein thrombosis) Z8 6.718 [facility] [address] [address] Nov, 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 [facility] [address] [facility] [id number] [address] [place] [address] Nov, Acute non-recurrent maxillar y sinusitis J01.00 [facility] [address] [address] Oct, [facility] (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 Z79.01 [place] [address] [address] Oct, Personal history of venous thrombosis an d embolism Z86.718 [place] [address] [address] Sep, [place] [address] [address] Sep, Personal history of venous thrombosis an d embolism Z86.718 [place] [address] [address] Sep, 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 [place] [address] [address] Sep, [facility] (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 Z79.01 [place] [address] [address] Sep, Generalized anxiety disorder F41.1 and H istory of DVT (deep vein thrombosis) Z86.718 [place] [address] [address] Aug, History of DVT (deep vein thrombosis) Z8 6.718 ; Generalized anxiety disorder F41.1 ; MCC (current) use of anticoagulants Z79.01 ; Pelvic pain R10.2 ; Hypertriglyceridemia E78.1 ; Excessive daytime sleepiness G47.19 ; Colon cancer screening Z12.11 ; Screening for breast cancer Z12.39 ; Peripheral edema R60.9 and Gastroesophageal reflux disease, esophagitis presence not specified K21.9 [place] [address] [address] Aug, [place] [address] [address] July, [place] [address] [address] July, History of DVT (deep vein thrombosis) Z8 6.718 [place] [address] [address] Jun, Generalized anxiety disorder F41.1 [place] [address] [address] Jun, History of DVT (deep vein thrombosis) Z8 6.718 [place] [address] [address] Jun, History of DVT (deep vein thrombosis) Z8 6.718 [place] [address] [address] Jun, History of DVT (deep vein thrombosis) Z8 6.718 [place] [address] [address] Jun, History of DVT (deep vein thrombosis) Z8 6.718 [place] [address] [address] May, History of DVT (deep vein thrombosis) Z8 6.718 [place] [address] [address] May, MCC (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 Z79.01 [place] [address] [address] May, 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 [place] [address] [address] May, History of DVT (deep vein thrombosis) Z8 6.718 [facility] [address] [facility] [id number] [address] [place] [address] Apr, Bacterial conjunctivitis of left eye H10.9 and H/O motion sickness Z87.898 [facility] [address] [address] Apr, History of DVT (deep vein thrombosis) Z8 6.718 [place] [address] [address] 23 Apr, 2016 History of DVT (deep vein thrombosis) Z8 6.718 [place] [address] [address] 15 Apr, 2016 History of DVT (deep vein thrombosis) Z8 6.718 [place] [address] [address] 14 Apr, 2016 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 [place] [address] [address] Mar, [place] [address] [address] Mar, [facility] (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 Z79.01 [place] [address] [address] Mar, Hypertriglyceridemia E78.1 and 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 [place] [address] [address] Feb, 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 [place] [address] [address] Feb, [facility] (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 Z79.01 [place] [address] [address] Feb, [facility] (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 Z79.01 [place] [address] [address] Dec, [place] [address] [address] Nov, [place] [address] [address] 13 Nov, 2015 History of DVT (deep vein thrombosis) Z8 6.718 ; Tremulousness R25.1 ; Generalized anxiety disorder F41.1 ; Peripheral edema R60.9 and Hypertriglyceridemia E78.1 [place] [address] [address] Oct, History of DVT (deep vein thrombosis) Z8 6.718 [place] [address] [address] Oct, [place] [address] [address] Sep, History of DVT (deep vein thrombosis) Z8 6.718 [place] [address] [address] Sep, 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 [place] [address] [address] July, [place] [address] [address] July, 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 [place] [address] [address] July, [facility] (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 Z79.01 [place] [address] [address] Jun, M[facility] (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 Z79.01 [facility] [place] [address] [place] [address] Jun, Coccyx pain M53.3 ; Encounte r for therapeutic drug level monitoring Z51.81 and meat market manager current use 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.01 [place] [address] [address] May, Abnormal mammogram R92.8 [facility] [place] [address] [place] [id number] [place] [address] May, [facility] [place] [address] [place] [address] [id number] [place] [address] May, Acute vaginitis N76.0 and En counter for other screening for malignant neoplasm of breast Z12.39 [place] [address] [address] Apr, [place] [address] [place] [id number] Apr, [place] [address] [address] Apr, Peripheral edema R60.9 [place] [address] [place] [address] Apr, 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 [place] [address] [address] Apr, Peripheral edema R60.9 and meat market manager (cu rrent) use of anticoagulants Z79.01 [place] [address] [address] Apr, 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 [place] [address] [address] Apr, [place] [address] [address] Apr, [facility] (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 Z79.01 [place] [address] [address] Apr, Peripheral edema R60.9 [place] [address] [address] Mar, 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 [place] [address] [address] Mar, [facility]CC (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 Z79.01 and Hypertriglyceridemia E78.1 [place] [address] [address] Mar, [facility] (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 Z79.01 [place] [address] [address] Mar, 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 [place] [address] [address] Mar, [place] [address] [address] Mar, [facility] (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 Z79.01 ; Hypertriglyceridemia E78.1 ; Personal history of venous thrombosis and embolism Z86.718 and Lump R22.9 [place] [address] [address] Mar, Personal history of venous thrombosis an d embolism Z86.718 [place] [address] [address] Mar, Personal history of venous thrombosis an d embolism Z86.718 [place] [address] [address] Mar, [place] [address] [address] Dec, Personal history of venous thrombosis an d embolism Z86.718 [place] [address] [address] Dec, Personal history of venous thrombosis an d embolism V12.51 [place] [address] [address] 28 Nov, 2014 Personal history of venous thrombosis an d embolism V12.51 [place] [address] [address] 25 Nov, 2014 Personal history of venous thrombosis an d embolism V12.51 [place] [address] [address] 17 Nov, 2014 Personal history of venous thrombosis an d embolism V12.51 [place] [address] [address] Nov, Personal history of venous thrombosis an d embolism V12.51 [facility] [address] [address] Nov, [facility] [address] [address] Oct, Dysuria 788.1 [place] [address] [address] Oct, Personal history of venous thrombosis an d embolism V12.51 [facility] [address] [address] Oct, [place] [address] [address] Oct, Personal history of venous thrombosis an d embolism V12.51 [place] [address] [address] Sep, Personal history of venous thrombosis an d embolism V12.51 [place] [address] [address] Sep, Personal history of venous thrombosis an d embolism V12.51 [place] [address] [address] Aug, Personal history of venous thrombosis an d embolism V12.51 [place] [address] [address] Aug, Personal history of venous thrombosis an d embolism V12.51 [place] [address] [address] Aug, Personal history of venous thrombosis an d embolism V12.51 [place] [address] [address] July, Generalized anxiety disorder 300.02 ; Ab dominal pain, left lower quadrant 789.04 and Personal history of venous thrombosis and embolism V12.51 [place] [address] [address] Jun, [facility] [address] [id number] [place] [address] Jun, [facility] [address] [id number] [place] [address] May, [facility] [address] [id number] [place] [address] May, [facility] [address] [id number] [place] [address] May, [facility] [address] [id number] [place] [address] May, [facility] [address] [id number] [place] [address] May, [facility] [address] [id number] [place] [address] May, [facility] [address] [id number] [place] [address] May, [facility] [address] [id number] [place] [address] May, [facility] [address] [id number] [place] [address] Apr, [facility] [address] [id number] [place] [address] Apr, [facility] [address] [id number] [place] [address] Apr, [facility] [address] [id number] [place] [address] Apr, [facility] [address] [id number] [place] [address] Apr, [facility] [address] [id number] [place] [address] Mar, [facility] [address] [id number] [place] [address] Mar, [facility] [address] [id number] [place] [address] Mar, [facility] [address] [id number] [place] [address] Mar, [facility] [address] [id number] [place] [address] Mar, [facility] [address] [id number] [place] [address] Mar, [facility] [address] [id number] [place] [address] Feb, [facility] [address] [id number] [place] [address] Feb, [facility] [address] [id number] [place] [address] Feb, [facility] [address] [id number] [place] [address] Feb, [facility] [address] [id number] [place] [address] Feb, [facility] [address] [id number] [place] [address] Feb, [facility] [address] [id number] [place] [address] Feb, [facility] [address] [id number] [place] [address] Feb, [facility] [address] [id number] [place] [address] Feb, [facility] [address] [id number] [place] [address] Feb, [facility] [address] [id number] [place] [address] Jan, [facility] [address] [id number] [place] [address] Jan, [facility] [address] [id number] [place] [address] Jan, [facility] [address] [id number] [place] [address] Jan, [facility] [address] [facility] [id number] [place] [address] Jan, [facility] [address] [id number] [place] [address] Jan, [facility] [address] [id number] [place] [address] Jan, [facility] [address] [id number] [place] [address] Jan, [facility] [address] [id number] [place] [address] Jan, [facility] [address] [id number] [place] [address] Jan, [facility] [address] [id number] [place] [address] Dec, [facility] [address] [id number] [place] [address] Dec, [facility] [address] [id number] [place] [address] Dec, [facility] [address] [id number] [place] [address] Dec, [facility] [address] [id number] [place] [address] Dec, [facility] [address] [id number] [place] [address] Dec, [facility] [address] [id number] [place] [address] Dec, [facility] [address] [id number] [place] [address] Dec, [facility] [address] [id number] [place] [address] Dec, [facility] [address] [id number] [place] [address] Dec, [facility] [address] [id number] [place] [address] Dec, 2013 [facility] [address] [id number] [place] [address] Dec, [facility] [address] [id number] [place] [address] Dec, 2013 [facility] [address] [id number] [place] [address] Dec, [facility] [address] [id number] [place] [address] Dec, [facility] [address] [id number] [place] [address] 30 Nov, 2013 [facility] [address] [id number] [place] [address] 30 Nov, 2013 [facility] [address] [id number] [place] [address] 26 Nov, 2013 [facility] [address] [id number] [place] [address] 26 Nov, 2013 [facility] [address] [id number] [place] [address] 24 Nov, 2013 [facility] [address] [id number] [place] [address] 24 Sep, 2013 [facility] [address] [id number] [place] [address] 23 Nov, 2013 [facility] [address] [id number] [place] [address] 23 Sep, 2013 [facility] [address] [id number] [place] [address] 18 Sep, 2013 [facility] [address] [id number] [place] [address] 18 Sep, 2013 [facility] [address] [id number] [place] [address] 17 Sep, 2013 [facility] [address] [id number] [place] [address] 17 Nov, 2013 [facility] [address] [facility] [id number] [facility] [place] [address] 11 Nov, 2013 [facility] [address] [facility] [id number] [facility] [place] [address] 11 Nov, 2013 [facility] [address] [id number] [facility] [place] [address] 10 Nov, 2013 [facility] [address] [facility] [id number] [facility] [place] [address] 10 Nov, 2013 [facility] [address] [facility] [id number] [facility] [place] [address] 08 Nov, 2013 [facility] [address] [facility] [id number] [place] [address] 08 Nov, 2013 [facility] [address] [id number] [place] [address] Sep, 2013 [facility] [address] [id number] [place] [address] Sep, 2013 [facility] [address] [facility] [id number] [place] [address] Sep, 2013 [facility] [address] [id number] [place] [address] Sep, 2013 [facility] [address] [id number] [place] [address] Sep, 2013 [facility] [address] [id number] [place] [address] Sep, 2013 [facility] [address] [facility] [id number] [place] [address] Aug, [facility] [address] [id number] [place] [address] Aug, [facility] [address] [facility] [id number] [place] [address] Aug, [facility] [address] [id number] [place] [address] Aug, [facility] [address] [id number] [place] [address] 24 Aug, 2013 [facility] [address] [id number] [place] [address] Aug, [facility] [address] [facility] [id number] [place] [address] Aug, [facility] [address] [id number] [place] [address] Aug, [facility] [address] [id number] [place] [address] Aug, [facility] [address] [id number] [place] [address] Aug, [facility] [address] [id number] [place] [address] Aug, [facility] [address] [id number] [place] [address] July, [facility] [address] [id number] [place] [address] July, [facility] [address] [id number] [place] [address] Jun, [facility] [address] [id number] [place] [address] Jun, [facility] [address] [id number] [place] [address] Jun, [facility] [address] [id number] [place] [address] Jun, [facility] [address] [id number] [place] [address] Jun, [facility] [address] [id number] [place] [address] Jun, [facility] [address] [id number] [place] [address] 15 Jun, 2013 [facility] [address] [id number] [place] [address] 15 Jun, 2013 [facility] [address] [id number] [place] [address] 11 Jun, 2013 [facility] [address] [id number] [place] [address] 11 Jun, 2013 [facility] [address] [id number] [place] [address] 10 Jun, 2013 [facility] [address] [id number] [place] [address] Jun, [facility] [address] [id number] [place] [address] May, [facility] [address] [id number] [place] [address] May, [facility] [address] [id number] [place] [address] May, [facility] [address] [id number] [place] [address] May, [facility] [address] [id number] [place] [address] May, [facility] [address] [id number] [place] [address] May, [facility] [address] [id number] [place] [address] May, [facility] [address] [id number] [place] [address] May, [facility] [address] [id number] [place] [address] May, [facility] [address] [id number] [place] [address] May, [facility] [address] [id number] [place] [address] May, [facility] [address] [id number] [place] [address] May, [facility] [address] [id number] [place] [address] Apr, [facility] [address] [id number] [place] [address] Apr, [facility] [address] [id number] [place] [address] Apr, [facility] [address] [id number] [place] [address] Apr, [facility] [address] [id number] [place] [address] Apr, [facility] [address] [id number] [place] [address] Apr, [facility] [address] [id number] [place] [address] Apr, [facility] [address] [id number] [place] [address] Apr, [facility] [address] [id number] [place] [address] Apr, [facility] [address] [id number] [place] [address] Apr, [facility] [address] [id number] [place] [address] Apr, [facility] [address] [id number] [place] [address] Apr, [facility] [address] [id number] [place] [address] Apr, [facility] [address] [id number] [place] [address] Apr, [facility] [address] [id number] [place] [address] Apr, [facility] [address] [id number] [place] [address] Apr, [facility] [address] [id number] [place] [address] Apr, [facility] [address] [id number] [place] [address] Jan, [facility] [address] [id number] [place] [address] Jan, [facility] [address] [id number] [place] [address] 08 Jan, 2013 [facility] [address] [id number] [place] [address] Jan, [facility] [address] [id number] [place] [address] Jan, [facility] [address] [id number] [place] [address] Jan, [facility] [address] [id number] [place] [address] Jan, [facility] [address] [id number] [place] [address] Dec, [facility] [address] [id number] [place] [address] Dec, [facility] [address] [id number] [place] [address] Dec, [facility] [address] [id number] [place] [address] Nov, 2012 [facility] [address] [id number] [place] [address] 10 Nov, 2012 [facility] [address] [id number] [place] [address] 05 Nov, 2012 [facility] [address] [id number] [place] [address] 04 Nov, 2012 [facility] [address] [id number] [place] [address] Oct, [facility] [address] [id number] [place] [address] Oct, [facility] [address] [id number] [place] [address] Oct, [facility] [address] [id number] [facility] [place] [address] Oct, [facility] [address] [id number] [place] [address] Oct, [facility] [address] [id number] [place] [address] Sep, [facility] [address] [id number] [place] [address] Sep, [facility] [address] [id number] [place] [address] Sep, [facility] [address] [id number] [place] [address] Sep, [facility] [address] [id number] [place] [address] Sep, [facility] [address] [id number] [place] [address] Sep, [facility] [address] [id number] [place] [address] Sep, [facility] [address] [id number] [place] [address] Aug, [facility] [address] [id number] [place] [address] Aug, [facility] [address] [id number] [place] [address] July, [facility] [address] [id number] [place] [address] Jun, [facility] [address] [id number] [place] [address] Jun, [facility] [address] [id number] [place] [address] Jun, [facility] [address] [id number] [place] [address] Apr, [facility] [address] [id number] [place] [address] Apr, [facility] [address] [id number] [place] [address] Apr, [facility] [address] [id number] [place] [address] Mar, [facility] [address] [id number] [place] [address] Mar, [facility] [address] [id number] [place] [address] Mar, [facility] [address] [id number] [place] [address] Mar, [facility] [address] [id number] [place] [address] Mar, [facility] [address] [id number] [place] [address] 14 Feb, 2012 [facility] [address] [id number] [place] [address] 14 Feb, 2012 [facility] [address] [id number] [place] [address] Jan, [facility] [address] [id number] [place] [address] Jan[facility] [address] [id number] [place] [address] 13 Jan, 2012 [facility] [address] [id number] [place] [address] 13 Jan, 2012 [facility] [address] [id number] [place] [address] Jan, [facility] [address] [id number] [place] [address] 07 Jan, 2012 [facility] [address] [id number] [place] [address] 06 Jan, 2012 [facility] [address] [id number] [place] [address] Dec, [facility] [address] [facility] [id number] [place] [address] Dec, [facility] [address] [id number] [place] [address] Dec, [facility] [address] [id number] [place] [address] Dec, [facility] [address] [id number] [place] [address] Dec, [facility] [address] [id number] [place] [address] Dec, [facility] [address] [id number] [place] [address] Dec, [facility] [address] [id number] [place] [address] Dec, [facility] [address] [id number] [place] [address] Dec, [facility] [address] [id number] [place] [address] Dec, [facility] [address] [id number] [place] [address] Oct, [facility] [address] [id number] [place] [address] Oct, [facility] [address] [id number] [place] [address] Aug, [facility] [address] [id number] [place] [address] Aug, [facility] [address] [id number] [place] [address] July, [facility] [address] [id number] [place] [address] Jun, [facility] [address] [id number] [place] [address] Jun, [facility] [address] [id number] [place] [address] May, [facility] [address] [id number] [place] [address] Apr, [facility] [address] [id number] [place] [address] Apr, [facility] [address] [id number] [place] [address] Mar, [facility] [address] [id number] [place] [address] Mar, [facility] [address] [id number] [place] [address] Feb, [facility] [address] [id number] [place] [address] 15 Feb, 2011 [facility] [address] [id number] [place] [address] Feb, [facility] [address] [id number] [place] [address] Feb, [facility] [address] [id number] [place] [address] Jan, [facility] [address] [id number] [place] [address] 17 Dec, 2010 [facility] [address] [id number] [place] [address] 08 Feb, 2010 [facility] [address] [id number] [place] [address] Feb, [facility] [address] [id number] [place] [address] Feb, [facility] [address] [id number] [place] [address] Feb, [facility] [address] [id number] [place] [address] 15 Dec, 2009 [facility] [address] [id number] [place] [address] Dec, [facility] [address] [id number] [place] [address] Oct, [facility] [address] [id number] [place] [address] Jun, [facility] [address] [id number] [place] [address] Feb, [facility] [address] [id number] [place] [address] Feb, [facility] [address] [id number] [place] [address] Feb, [facility] [address] [id number] [place] [address] Dec, IMMUNIZATIONS No Known Immunizations SOCIAL HISTORY [...] 1985, 1987 Surgical History cholecystectomy Surgical History [place] Filter 06/2009 Surgical History Left leg exploratory surgery r/t clot Surgical History left shoulder surgery 09/14/17 Surgical History lap band removed 12/2017 Surgical History gastic sleeve 01/2018 Surgical History Back surgery 2019 Surgical History Partial Thyroidectomy - left side 2019 Hospitalization History Ruptured Ovarian Cyst with abd bleed ing 11/2009 Hospitalization History Broken Back 06/2018
--- OUTSIDE RECORDS SUMMARY | 2019-10-19 12:47 | XMS REPORT ---
Author Author Mary Jane Mcginnis Doctor Organization [facility] Address Unknown Phone Unavailable Care Team Providers Care Import/Export Specialist Name Role Phone Migration, Doctor Unavailable Unavailable PROBLEMS Type Condition ICD9-CM Code IOS81-[place] Code Onset Dates Condition S tatus SNOMED Code Problem Thyroid follicular adenoma D34 Act phylicia 902090318 Problem History of DVT (deep vein thrombosis) Z86.718 Active 931517495 Problem Factor V Leiden D68.51 Active 3070 08755 Problem group home (current) use of anticoagulants Z79.01 Active 590711090 Problem Hypertriglyceridemia E78.1 Active 599999993 Problem 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 Active 142645612 Problem Pelvic pain R10.2 Active 88474169 Problem Peripheral edema R60.9 Active 271 611601 Problem Moderate episode of recurrent major depressive disorder F33.1 Active 603206917 Problem Presence of IVC filter Z95.828 Active 676996584 Problem Vitamin D deficiency E55.9 Active 94723190 Problem Generalized anxiety disorder F41.1 A ctive 874242552 Problem Excessive daytime sleepiness G47.19 A ctive 885207459138 Problem Gastroesophageal reflux disease, esophagitis pre sence not specified K21.9 Active 770512500 Problem Thyroid nodule E04.1 Active 75949 5005 Problem Morbid obesity E66.01 Active 19383 6002 ALLERGIES No Information ENCOUNTERS Encounter Location Date Diagnosis [place] [id number] [facility] [id number] [address] [place] [phone] 12 Apr, 2019 Back pain with history of sp inal surgery M54.9 [place] [id number] [facility] [id number] [address] [place] [phone] 11 Apr, 2019 [place] [address] [facility] [id number] [address] [place] [phone] 10 Apr, 2019 Gastroenteritis K52.9 ; Back pain with history of spinal surgery M54.9 ; Dermatofibroma of lower leg, unspecified laterality D23.70 and Morbid obesity E66.01 [facility] [address] [facility] [id number] [address] [place] [phone] Mar, [facility] [address] [facility] [id number] [address] [place] [phone] Jan, [facility] [address] [facility] [id number] [address] [place] [phone] Jan, [facility] [address] [facility] [id number] [address] [place] [phone] Dec, Encounter for weight managem ent Z76.89 [place] [address] [address] [facility] [id number] [address] [place] [phone] Dec, Encounter for weight managem ent Z76.89 and Screening mammogram, encounter for Z12.31 [place] [address] [address] [facility] [id number] [address] [place] [phone] Nov, Encounter for weight managem ent Z76.89 [facility] [address] [facility] [id number] [address] [place] [phone] Nov, Thyroid nodule E04.1 [place] [address] [address] [facility] [id number] [address] [place] [phone] Nov, Thyroid nodule E04.1 [place] [address] [address] [place] [id number] [address] [place] [phone] Nov, Thyroid nodule E04.1 [facility] [address] [facility] [id number] [address] [place] [phone] Oct, Syncope, unspecified syncope type R55 and Encounter for weight management Z76.89 [facility] [address] [facility] [id number] [address] [place] [address] Oct, Morbid obesity E66.01 [facility] [address] [facility] [id number] [address] [place] [phone] Oct, Hypertriglyceridemia E78.1 [facility] [address] [facility] [id number] [address] [place] [phone] Oct, [facility] [address] [id number] [address] [place] [phone] Oct, Hypertriglyceridemia E78.1 [facility] [address] [id number] [address] [place] [phone] Sep, Hypertriglyceridemia E78.1 a nd Vitamin D deficiency E55.9 [facility] [address] [id number] [address] [place] [phone] Sep, [facility] [address] [id number] [address] [place] [phone] Sep, Morbid obesity E66.01 ; Mode rate episode of recurrent major depressive disorder F33.1 ; Hypertriglyceridemia E78.1 and Vitamin D deficiency E55.9 [facility] [address] [id number] [address] [place] [phone] Aug, [facility] [address] [id number] [address] [place] [phone] July, [facility] [address] [id number] [address] [place] [phone] July, [facility] [address] [facility] [id number] [address] [place] [phone] Jun, [facility] [address] [id number] [address] [place] [phone] Jun, [facility] [address] [facility] [id number] [address] [place] [phone] Jun, Closed compression fracture of L3 lumbar vertebra with routine healing, subsequent encounter S32.030D and Drug-induced constipation K59.03 [facility] [address] [id number] [address] [place] [phone] Jun, [facility] [address] [id number] [address] [place] [phone] Jun, [facility] [address] [id number] [address] [place] [phone] 19 Apr, 2018 [facility] [address] [facility] [id number] [address] [place] [phone] 18 Apr, 2018 Morbid obesity E66.01 [facility] [address] [facility] [id number] [address] [place] [phone] 12 Apr, 2018 Morbid obesity E66.01 ; Hype rtriglyceridemia E78.1 ; Gastroesophageal reflux disease, esophagitis presence not specified K21.9 and Joint pain M25.50 [facility] [address] [facility] [id number] [address] [place] [phone] Feb, [facility] [address] [facility] [id number] [place] [phone] Feb, [facility] [address] [facility] [id number] [address] [place] [phone] Jan, Acute bacterial conjunctivit is H10.30 [facility] [address] [facility] [id number] [address] [place] [id number] 08 Dec, 2017 [facility] [address] [facility] [id number] [address] [place] [phone] 04 Dec, 2017 [facility] [address] [facility] [id number] [address] [place] [phone] 17 Nov, 2017 [facility] [address] [facility] [id number] [address] [place] [phone] 07 Nov, 2017 Obstructive sleep apnea G47. 33 ; Morbid obesity E66.01 and Gastroesophageal reflux disease, esophagitis presence not specified K21.9 [facility] [address] [id number] [address] [place] [id number] 06 Nov, 2017 Encounter for examination of eyes and vision without abnormal findings Z01.00 [facility] [address] [facility] [id number] [address] [place] [phone] 31 Oct, 2017 Thyroid nodule E04.1 and Scr eening for breast cancer Z12.31 [facility] [address] [place] [id number] [address] [place] [phone] Oct, History of DVT (deep vein th rombosis) Z86.718 ; Thyroid nodule E04.1 and Gastroesophageal reflux disease, esophagitis presence not specified K21.9 [facility] [address] [id number] [address] [place] [phone] Oct, [facility] [address] [id number] [address] [place] [phone] Sep, [place] [address] [id number] [address] [place] [phone] Aug, [place] [address] [id number] [address] [place] [phone] Aug, [place] [address] [facility] [id number] [address] [place] [phone] Aug, Acute pain of left shoulder M25.512 and Thyroid nodule E04.1 [place] [address] [address] [facility] [id number] [address] [place] [phone] July, Superior glenoid labrum lesi on of left shoulder, subsequent encounter S43.432D [place] [address] [address] [facility] [id number] [address] [place] [phone] Jun, History of DVT (deep vein th rombosis) Z86.718 [place] [address] [facility] [id number] [address] [place] [phone] Jun, History of DVT (deep vein th rombosis) Z86.718 [place] [address] [id number] [address] [place] [phone] Jun, Impingement syndrome, should er, left M75.42 [place] [address] [facility] [id number] [address] [place] [address] May, Subacromial bursitis of left shoulder joint M75.52 [place] [address] [facility] [id number] [address] [place] [phone] May, [place] [address] [place] [id number] [address] [place] [phone] May, Hypertriglyceridemia E78.1 ; group home (current) use of anticoagulants Z79.01 and Excessive daytime sleepiness G47.19 [facility] [address] [id number] [address] [place] [phone] May, History of DVT (deep vein th rombosis) Z86.718 ; Generalized anxiety disorder F41.1 ; Hypertriglyceridemia E78.1 ; group home (current) use of anticoagulants Z79.01 ; Subacromial bursitis of left shoulder joint M75.52 and Excessive daytime sleepiness G47.19 [place] [address] [id number] [address] [place] [phone] May, [place] [address] [id number] [address] [place] [phone] May, group home (current) use of a nticoagulants Z79.01 [place] [address] [id number] [address] [place] [phone] Apr, 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 [place] [address] [id number] [address] [place] [phone] Apr, group home (current) use of a nticoagulants Z79.01 [place] [address] [id number] [address] [place] [phone] Apr, 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 [place] [address] [id number] [address] [place] [phone] Apr, [place] [address] [id number] [address] [place] [phone] Apr, group home (current) use of a nticoagulants Z79.01 [place] [address] [id number] [address] [place] [phone] 13 Apr, 2017 group home (current) use of a nticoagulants Z79.01 [facility] [address] [id number] [address] [place] [phone] Apr, 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 [facility] [address] [id number] [address] [place] [phone] Apr, group home (current) use of a nticoagulants Z79.01 [facility] [address] [id number] [address] [place] [phone] Apr, 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 [facility] [address] [id number] [address] [place] [phone] Apr, group home (current) use of a nticoagulants Z79.01 [facility] [address] [id number] [address] [place] [phone] Mar, group home (current) use of a nticoagulants Z79.01 [facility] [address] [id number] [address] [place] [phone] Mar, [facility] [address] [id number] [address] [place] [phone] Mar, group home (current) use of a nticoagulants Z79.01 [facility] [address] [id number] [address] [place] [id number] Jan, Dental examination Z01.20 [facility] [address] [id number] [address] [place] [id number] Jan, [facility] [address] [id number] [address] [place] [phone] Jan, group home (current) use of a nticoagulants Z79.01 [facility] [address] [id number] [address] [place] [phone] Jan, History of DVT (deep vein th rombosis) Z86.718 [facility] [address] [id number] [address] [place] [phone] Jan, Generalized anxiety disorder F41.1 and Peripheral edema R60.9 [facility] [address] [id number] [address] [place] [phone] Nov, History of DVT (deep vein th rombosis) Z86.718 [facility] [address] [id number] [address] [place] [phone] Nov, 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 [facility] [address] [id number] [address] [place] [id number] Nov, Acute non-recurrent maxillar y sinusitis J01.00 [facility] [address] [id number] [address] [place] [phone] Oct, group home (current) use of a nticoagulants Z79.01 [facility] [address] [id number] [address] [place] [phone] Oct, Personal history of venous t hrombosis and embolism Z86.718 [place] [address] [id number] [address] [place] [phone] Sep, [facility] [address] [id number] [address] [place] [phone] Sep, Personal history of venous t hrombosis and embolism Z86.718 [facility] [address] [id number] [address] [place] [address] Sep, 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 [facility] [address] [id number] [address] [place] [phone] Sep, 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 [facility] [address] [id number] [address] [place] [phone] Sep, Generalized anxiety disorder F41.1 and History of DVT (deep vein thrombosis) Z86.718 [place] [address] [place] [id number] [address] [place] [address] Aug, History of DVT (deep vein th rombosis) Z86.718 ; Generalized anxiety disorder F41.1 ; 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 ; Pelvic pain R10.2 ; Hypertriglyceridemia E78.1 ; Excessive daytime sleepiness G47.19 ; Colon cancer screening Z12.11 ; Screening for breast cancer Z12.39 ; Peripheral edema R60.9 and Gastroesophageal reflux disease, esophagitis presence not specified K21.9 [place] [address] [place] [id number] [address] [place] [phone] Aug, [place] [address] [place] [id number] [place] [address] July, [place] [address] [place] [id number] [place] [address] July, History of DVT (deep vein th rombosis) Z86.718 [place] [address] [place] [id number] [address] [place] [address] Jun, Generalized anxiety disorder F41.1 [place] [address] [place] [id number] [address] [place] [phone] Jun, History of DVT (deep vein th rombosis) Z86.718 [place] [address] [place] [id number] [address] [place] [phone] Jun, History of DVT (deep vein th rombosis) Z86.718 [place] [address] [place] [id number] [address] [place] [phone] Jun, History of DVT (deep vein th rombosis) Z86.718 [place] [address] [place] [id number] [address] [place] [phone] Jun, History of DVT (deep vein th rombosis) Z86.718 [place] [address] [place] [id number] [address] [place] [phone] May, History of DVT (deep vein th rombosis) Z86.718 [facility] [address] [id number] [address] [place] [id number] May, 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 [facility] [address] [facility] [id number] [address] [place] [phone] May, group home (current) use of a nticoagulants Z79.01 [facility] [address] [id number] [address] [place] [phone] May, History of DVT (deep vein th rombosis) Z86.718 [facility] [address] [id number] [address] [place] [phone] 27 Apr, 2016 Bacterial conjunctivitis of left eye H10.9 and H/O motion sickness Z87.898 [facility] [address] [id number] [address] [place] [id number] 24 Apr, 2016 History of DVT (deep vein th rombosis) Z86.718 [place] [address] [id number] [address] [place] [phone] 23 Apr, 2016 History of DVT (deep vein th rombosis) Z86.718 [facility] [address] [id number] [address] [place] [id number] 15 Apr, 2016 History of DVT (deep vein th rombosis) Z86.718 [facility] [address] [id number] [address] [place] [id number] 14 Apr, 2016 group home (current) use of a nticoagulants Z79.01 [place] [address] [id number] [address] [place] [phone] Mar, [facility] [address] [facility] [id number] [address] [place] [phone] Mar, 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 [facility] [address] [id number] [address] [place] [phone] Mar, Hypertriglyceridemia E78.1 a nd 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 [facility] [address] [id number] [address] [place] [phone] Feb, group home (current) use of a nticoagulants Z79.01 [facility] [address] [id number] [address] [place] [phone] Feb, 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 [facility] [address] [id number] [address] [place] [phone] Feb, group home (current) use of a nticoagulants Z79.01 [facility] [address] [id number] [address] [place] [phone] Dec, [facility] [address] [id number] [address] [place] [phone] Nov, [facility] [address] [id number] [address] [place] [phone] Nov, History of DVT (deep vein th rombosis) Z86.718 ; Tremulousness R25.1 ; Generalized anxiety disorder F41.1 ; Peripheral edema R60.9 and Hypertriglyceridemia E78.1 [facility] [address] [id number] [address] [place] [phone] Oct, History of DVT (deep vein th rombosis) Z86.718 [facility] [address] [id number] [address] [place] [phone] Oct, [place] [address] [facility] [id number] [address] [place] [phone] Sep, History of DVT (deep vein th rombosis) Z86.718 [place] [address] [id number] [address] [place] [phone] Sep, group home (current) use of a nticoagulants Z79.01 [facility] [address] [id number] [address] [place] [phone] July, [facility] [address] [id number] [address] [place] [phone] July, 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 [facility] [address] [id number] [address] [place] [phone] July, 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 [facility] [address] [id number] [address] [place] [phone] Jun, 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 [facility] [address] [facility] [id number] [address] [place] [phone] Jun, Coccyx pain M53.3 ; Encounte r for therapeutic drug level monitoring Z51.81 and group home current use 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.01 [facility] [address] [id number] [address] [place] [phone] May, Abnormal mammogram R92.8 [facility] [address] [id number] [address] [place] [phone] May, [facility] [address] [id number] [address] [place] [phone] May, Acute vaginitis N76.0 and En counter for other screening for malignant neoplasm of breast Z12.39 [facility] [address] [id number] [address] [place] [phone] Apr, [facility] [address] [id number] [address] [place] [phone] Apr, [facility] [address] [id number] [address] [place] [phone] Apr, Peripheral edema R60.9 [facility] [address] [id number] [address] [place] [id number] Apr, 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 [facility] [address] [id number] [address] [place] [phone] Apr, Peripheral edema R60.9 and L jose martin term (current) 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 Z79.01 [facility] [address] [id number] [address] [place] [id number] Apr, group home (current) use of a nticoagulants Z79.01 [facility] [address] [id number] [address] [place] [phone] Apr, [facility] [address] [facility] [id number] [address] [place] [phone] Apr, 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 [place] [facility] [id number] [id number] [address] [place] [phone] Apr, Peripheral edema R60.9 [facility] [address] [facility] [id number] [address] [place] [phone] Mar, 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 [facility] [address] [facility] [id number] [address] [place] [phone] Mar, 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 and Hypertriglyceridemia E78.1 [facility] [address] [id number] [address] [place] [id number] Mar, group home (current) use of a nticoagulants Z79.01 [facility] [address] [facility] [id number] [address] [place] [phone] Mar, 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 [facility] [address] [facility] [id number] [address] [place] [phone] Mar, [facility] [address] [id number] [address] [place] [address] 13 Mar, 2015 group home (current) use of a nticoagulants Z79.01 ; Hypertriglyceridemia E78.1 ; Personal history of venous thrombosis and embolism Z86.718 and Lump R22.9 [place] [address] [id number] [address] [place] [address] Mar, Personal history of venous t hrombosis and embolism Z86.718 [place] [address] [id number] [address] [place] [address] Mar, Personal history of venous t hrombosis and embolism Z86.718 [place] [address] [id number] [address] [place] [address] Mar, [place] [address] [address] [facility] [id number] [address] [place] [address] Dec, Personal history of venous t hrombosis and embolism Z86.718 [place] [address] [id number] [address] [place] [address] Dec, Personal history of venous t hrombosis and embolism V12.51 [place] [address] [id number] [address] [place] [address] Nov, Personal history of venous t hrombosis and embolism V12.51 [place] [address] [id number] [address] [place] [address] Nov, Personal history of venous t hrombosis and embolism V12.51 [place] [address] [id number] [address] [place] [address] 17 Nov, 2014 Personal history of venous t hrombosis and embolism V12.51 [place] [address] [id number] [address] [place] [address] Nov, Personal history of venous t hrombosis and embolism V12.51 [place] [address] [address] [facility] [id number] [address] [place] [address] Nov, [facility] [address] [id number] [address] [place] [address] Oct, Dysuria 788.1 [facility] [address] [id number] [address] [place] [address] Oct, Personal history of venous t hrombosis and embolism V12.51 [facility] [address] [id number] [address] [place] [address] Oct, [facility] [address] [id number] [address] [place] [address] Oct, Personal history of venous t hrombosis and embolism V12.51 [place] [address] [id number] [address] [place] [address] Sep, Personal history of venous t hrombosis and embolism V12.51 [place] [address] [id number] [address] [place] [address] Sep, Personal history of venous t hrombosis and embolism V12.51 [facility] [address] [id number] [address] [place] [address] Aug, Personal history of venous t hrombosis and embolism V12.51 [facility] [address] [id number] [address] [place] [address] Aug, Personal history of venous t hrombosis and embolism V12.51 [facility] [address] [id number] [address] [place] [address] Aug, Personal history of venous t hrombosis and embolism V12.51 [facility] [address] [id number] [address] [place] [address] July, Generalized anxiety disorder 300.02 ; Abdominal pain, left lower quadrant 789.04 and Personal history of venous thrombosis and embolism V12.51 [facility] [address] [id number] [address] [place] [address] Jun, [facility] [address] [id number] [address] [place] [address], [place] [address] 13 Jun, 2014 [facility] [address] [id number] [address] [place] [address], [place] [address] May, [facility] [address] [id number] [address] [place] [address], [place] [address] May, [facility] [address] [id number] [address] [place] [address], [place] [address] May, [facility] [address] [id number] [address] [place] [address], [place] [address] May, [facility] [address] [id number] [address] [place] [address], [place] [address] May, [facility] [address] [id number] [address] [place] [address], [place] [address] May, [facility] [address] [id number] [address] [place] [address], [place] [address] May, [facility] [address] [id number] [address] [place] [address], [place] [address] May, [facility] [address] [id number] [address] [place] [address], [place] [address] Apr, [facility] [address] [id number] [address] [place] [address], [place] [address] Apr, [facility] [address] [id number] [address] [place] [address], [place] [address] Apr, [facility] [address] [id number] [address] [place] [address], [place] [address] Apr, [facility] [address] [id number] [address] [place] [address], [place] [address] Apr, [facility] [address] [id number] [address] [place] [address], [place] [address] Mar, [facility] [address] [id number] [address] [place] [address], [place] [address] Mar, [facility] [address] [id number] [address] [place] [address], [place] [address] Mar, [facility] [address] [id number] [address] [place] [address], [place] [address] Mar, [facility] [address] [id number] [address] [place] [address], [place] [address] Mar, [facility] [address] [id number] [address] [place] [address], [place] [address] Mar, [facility] [address] [id number] [address] [place] [address], [place] [address] Feb, [facility] [address] [id number] [address] [place] [address], [place] [address] Feb, [facility] [address] [id number] [address] [place] [address], [place] [address] Feb, [facility] [address] [id number] [address] [place] [address], [place] [address] Feb, [facility] [address] [id number] [address] [place] [address], [place] [address] Feb, [facility] [address] [id number] [address] [place] [address], [place] [address] Feb, [facility] [address] [id number] [address] [place] [address], [place] [address] Feb, [facility] [address] [id number] [address] [place] [address], [place] [address] Feb, [facility] [address] [id number] [address] [place] [address], [place] [address] Feb, [facility] [address] [id number] [address] [place] [address], [place] [address] Feb, [facility] [address] [id number] [address] [place] [address], [place] [address] Jan, [facility] [address] [id number] [address] [place] [address], [place] [address] Jan, [facility] [address] [id number] [address] [place] [address], [place] [address] Jan, [facility] [address] [id number] [address] [place] [address], [place] [address] Jan, [facility] [address] [id number] [address] [place] [address], [place] [address] Jan, [facility] [address] [id number] [address] [place] [address], [place] [address] Jan, [facility] [address] [id number] [address] [place] [address], [place] [address] Jan, [facility] [address] [id number] [address] [place] [address], [place] [address] Jan, [facility] [address] [id number] [address] [place] [address], [place] [address] Jan, [facility] [address] [id number] [address] [place] [address], [place] [address] Jan, [facility] [address] [id number] [address] [place] [address], [place] [address] Dec, [facility] [address] [id number] [address] [place] [address], [place] [address] Dec, [facility] [address] [id number] [address] [place] [address], [place] [address] Dec, [facility] [address] [id number] [address] [place] [address], [place] [address] Dec, [facility] [address] [id number] [address] [place] [address], [place] [address] Dec, [facility] [address] [id number] [address] [place] [address], [place] [address] Dec, [facility] [address] [id number] [address] [place] [address], [place] [address] Dec, [facility] [address] [id number] [address] [place] [address], [place] [address] Dec, [facility] [address] [id number] [address] [place] [address], [place] [address] Dec, [facility] [address] [id number] [address] [place] [address], [place] [address] Dec, [facility] [address] [id number] [address] [place] [address], [place] [address] Dec, [facility] [address] [id number] [address] [place] [address], [place] [address] Dec, [facility] [address] [id number] [address] [place] [address], [place] [address] Dec, [facility] [address] [id number] [address] [place] [address], [place] [address] Dec, [facility] [address] [id number] [address] [place] [address], [place] [address] Dec, [facility] [address] [id number] [address] [place] [address], [place] [address] 30 Nov, 2013 [facility] [address] [id number] [address] [place] [address], [place] [address] 30 Nov, 2013 [facility] [address] [id number] [address] [place] [address], [place] [address] 26 Nov, 2013 [facility] [address] [id number] [address] [place] [address], [place] [address] 26 Nov, 2013 [facility] [address] [id number] [address] [place] [address], [place] [address] 24 Nov, 2013 [facility] [address] [id number] [address] [place] [address], [place] [address] 24 Nov, 2013 [facility] [address] [id number] [address] [place] [address], [place] [address] 23 Nov, 2013 [facility] [address] [id number] [address] [place] [address], [place] [address] 23 Nov, 2013 [facility] [address] [id number] [facility] [place] [address] 18 Nov, 2013 [facility] [address] [id number] [address] [place] [address], [place] [address] 18 Nov, 2013 [facility] [address] [id number] [facility] [place] [address] 17 Nov, 2013 [facility] [address] [id number] [address] [place] [address], [place] [address] 17 Nov, 2013 [facility] [address] [id number] [address] [place] [address], [place] [address] 11 Nov, 2013 [facility] [address] [id number] [address] [place] [address], [place] [address] 11 Nov, 2013 [facility] [address] [id number] [address] [place] [address], [place] [address] 10 Nov, 2013 [facility] [address] [id number] [address] [place] [address], [place] [address] 10 Nov, 2013 [facility] [address] [id number] [address] [place] [address], [place] [address] 08 Nov, 2013 [facility] [address] [id number] [address] [place] [address], [place] [address] 08 Nov, 2013 [facility] [address] [id number] [address] [place] [address], [place] [address] Sep, 2013 [facility] [address] [id number] [address] [place] [address], [place] [address] Sep, 2013 [facility] [address] [id number] [address] [place] [address], [place] [address] Sep, 2013 [facility] [address] [id number] [address] [place] [address], [place] [address] Sep, 2013 [facility] [address] [id number] [address] [place] [address], [place] [address] Sep, 2013 [facility] [address] [id number] [facility] [place] [address] 07 Sep, 2013 [facility] [address] [id number] [address] [place] [address], [place] [address] Aug, [facility] [address] [id number] [facility] [place] [address] Aug, [facility] [address] [id number] [address] [place] [address], [place] [address] Aug, [facility] [address] [id number] [address] [place] [address], [place] [address] Aug, [facility] [address] [id number] [address] [place] [address], [place] [address] Aug, [facility] [address] [id number] [address] [place] [address], [place] [address] Aug, [facility] [address] [id number] [address] [place] [address], [place] [address] Aug, [facility] [address] [id number] [address] [place] [address], [place] [address] Aug, [facility] [address] [id number] [address] [place] [address], [place] [address] Aug, [facility] [address] [id number] [address] [place] [address], [place] [address] Aug, [facility] [address] [id number] [address] [place] [address], [place] [address] Aug, [facility] [address] [id number] [address] [place] [address], [place] [address] July, [facility] [address] [id number] [address] [place] [address], [place] [address] July, [facility] [address] [id number] [address] [place] [address], [place] [address] Jun, [facility] [address] [id number] [address] [place] [address], [place] [address] Jun, [facility] [address] [id number] [address] [place] [address], [place] [address] Jun, [facility] [address] [id number] [address] [place] [address], [place] [address] Jun, [facility] [address] [id number] [address] [place] [address], [place] [address] Jun, [facility] [address] [id number] [address] [place] [address], [place] [address] Jun, [facility] [address] [id number] [address] [place] [address], [place] [address] Jun, [facility] [address] [id number] [address] [place] [address], [place] [address] Jun, [facility] [address] [id number] [address] [place] [address], [place] [address] Jun, [facility] [address] [id number] [address] [place] [address], [place] [address] Jun, [facility] [address] [id number] [address] [place] [address], [place] [address] Jun, [facility] [address] [id number] [address] [place] [address], [place] [address] Jun, [facility] [address] [id number] [address] [place] [address], [place] [address] May, [facility] [address] [id number] [address] [place] [address], [place] [address] May, [facility] [address] [id number] [address] [place] [address], [place] [address] May, [facility] [address] [id number] [address] [place] [address], [place] [address] May, [facility] [address] [id number] [address] [place] [address], [place] [address] May, [facility] [address] [id number] [address] [place] [address], [place] [address] May, [facility] [address] [id number] [facility] [place] [address] May, [facility] [address] [id number] [address] [place] [address], [place] [address] May, [facility] [address] [id number] [address] [place] [address], [place] [address] May, [facility] [address] [id number] [address] [place] [address], [place] [address] May, [facility] [address] [id number] [address] [place] [address], [place] [address] May, [facility] [address] [id number] [address] [place] [address], [place] [address] May, [facility] [address] [id number] [address] [place] [address], [place] [address] Apr, [facility] [address] [id number] [address] [place] [address], [place] [address] Apr, [facility] [address] [id number] [address] [place] [address], [place] [address] Apr, [facility] [address] [id number] [address] [place] [address], [place] [address] Apr, [facility] [address] [id number] [address] [place] [address], [place] [address] Apr, [facility] [address] [id number] [address] [place] [address], [place] [address] Apr, [facility] [address] [id number] [address] [place] [address], [place] [address] Apr, [facility] [address] [id number] [address] [place] [address], [place] [address] Apr, [facility] [address] [id number] [address] [place] [address], [place] [address] Apr, [facility] [address] [id number] [address] [place] [address], [place] [address] Apr, [facility] [address] [id number] [address] [place] [address], [place] [address] Apr, [facility] [address] [id number] [address] [place] [address], [place] [address] Apr, [facility] [address] [id number] [address] [place] [address], [place] [address] Apr, [facility] [address] [id number] [address] [place] [address], [place] [address] Apr, [facility] [address] [id number] [address] [place] [address], [place] [address] Apr, [facility] [address] [id number] [address] [place] [address], [place] [address] Apr, [facility] [address] [id number] [address] [place] [address], [place] [address] Apr, [facility] [address] [id number] [address] [place] [address], [place] [address] Jan, [facility] [address] [id number] [address] [place] [address], [place] [address] Jan, [facility] [address] [id number] [address] [place] [address], [place] [address] Jan, [facility] [address] [id number] [address] [place] [address], [place] [address] Jan, [facility] [address] [id number] [address] [place] [address], [place] [address] Jan, [facility] [address] [id number] [address] [place] [address], [place] [address] Jan, [facility] [address] [id number] [address] [place] [address], [place] [address] Jan, [facility] [address] [id number] [address] [place] [address], [place] [address] Dec, [facility] [address] [id number] [address] [place] [address], [place] [address] Dec, [facility] [address] [id number] [address] [place] [address], [place] [address] Dec, [facility] [address] [id number] [address] [place] [address], [place] [address] Nov, [facility] [address] [id number] [address] [place] [address], [place] [address] Nov, [facility] [address] [id number] [address] [place] [address], [place] [address] Nov, [facility] [address] [id number] [address] [place] [address], [place] [address] Nov, [facility] [address] [id number] [address] [place] [address], [place] [address] Oct, [facility] [address] [id number] [address] [place] [address], [place] [address] Oct, [facility] [address] [id number] [address] [place] [address], [place] [address] Oct, [facility] [address] [id number] [address] [place] [address], [place] [address] Oct, [facility] [address] [id number] [address] [place] [address], [place] [address] Oct, [facility] [address] [id number] [address] [place] [address], [place] [address] Sep, [facility] [address] [id number] [address] [place] [address], [place] [address] Sep, [facility] [address] [id number] [address] [place] [address], [place] [address] Sep, [facility] [address] [id number] [address] [place] [address], [place] [address] Sep, [facility] [address] [id number] [address] [place] [address], [place] [address] Sep, [facility] [address] [id number] [address] [place] [address], [place] [address] Sep, [facility] [address] [id number] [address] [place] [address], [place] [address] Sep, [facility] [address] [id number] [address] [place] [address], [place] [address] Aug, [facility] [address] [id number] [address] [place] [address], [place] [address] Aug, [facility] [address] [id number] [address] [place] [address], [place] [address] July, [facility] [address] [id number] [address] [place] [address], [place] [address] Jun, [facility] [address] [id number] [address] [place] [address], [place] [address] Jun, [facility] [address] [id number] [address] [place] [address], [place] [address] Jun, [facility] [address] [id number] [address] [place] [address], [place] [address] Apr, [facility] [address] [id number] [address] [place] [address], [place] [address] Apr, [facility] [address] [id number] [address] [place] [address], [place] [address] Apr, [facility] [address] [id number] [address] [place] [address], [place] [address] Mar, [facility] [address] [id number] [address] [place] [address], [place] [address] Mar, [facility] [address] [id number] [address] [place] [address], [place] [address] Mar, [facility] [address] [id number] [address] [place] [address] [place] [address] 09 Mar, 2012 [facility] [address] [id number] [address] [place] [address], [place] [address] 07 Mar, 2012 [facility] [address] [id number] [address] [place] [address], [place] [address] 14 Feb, 2012 [facility] [address] [id number] [address] [place] [address], [place] [address] 14 Feb, 2012 [facility] [address] [id number] [address] [place] [address], [place] [address] 13 Jan, 2012 [facility] [address] [id number] [address] [place] [address], [place] [id number] 13 Jan, 2012 [facility] [address] [id number] [address] [place] [address], [place] [address] Jan, [facility] [address] [id number] [address] [place] [address], [place] [address] Jan, [facility] [address] [id number] [address] [place] [address], [place] [address] Jan, [facility] [address] [id number] [address] [place] [address], [place] [address] Jan, [facility] [address] [id number] [address] [place] [address], [place] [address] 06 Jan, 2012 [facility] [address] [id number] [address] [place] [address], [place] [address] 31 Dec, 2011 [facility] [address] [id number] [address] [place] [address], [place] [address] Dec, [facility] [address] [id number] [address] [place] [address], [place] [address] 30 Dec, 2011 [facility] [address] [id number] [address] [place] [address], [place] [address] 30 Dec, 2011 [facility] [address] [id number] [address] [place] [address], [place] [address] 30 Dec, 2011 [facility] [address] [id number] [address] [place] [address], [place] [address] Dec, [facility] [address] [id number] [address] [place] [address], [place] [address] Dec, [facility] [address] [id number] [address] [place] [address], [place] [address] Dec, [facility] [address] [id number] [address] [place] [address], [place] [address] Dec, [facility] [address] [id number] [address] [place] [address], [place] [address] Dec, [facility] [address] [id number] [address] [place] [address], [place] [address] Oct, [facility] [address] [id number] [address] [place] [address], [place] [address] Oct, [facility] [address] [id number] [address] [place] [address], [place] [address] Aug, [facility] [address] [id number] [address] [place] [address], [place] [address] Aug, [facility] [address] [id number] [address] [place] [address], [place] [address] July, [facility] [address] [id number] [address] [place] [address], [place] [address] Jun, [facility] [address] [id number] [address] [place] [address], [place] [address] Jun, [facility] [address] [id number] [address] [place] [address], [place] [address] May, [facility] [address] [id number] [address] [place] [address], [place] [address] Apr, [facility] [address] [id number] [address] [place] [address], [place] [address] Apr, [facility] [address] [id number] [address] [place] [address], [place] [address] 19 Mar, 2011 [facility] [address] [id number] [address] [place] [address], [place] [address] 16 Mar, 2011 [facility] [address] [id number] [address] [place] [address], [place] [address] 19 Feb, 2011 [facility] [address] [id number] [address] [place] [address], [place] [address] 15 Feb, 2011 [facility] [address] [id number] [address] [place] [address] 13 Feb, 2011 [facility] [address] [id number] [address] [place] [address], [place] [address] 13 Feb, 2011 [facility] [address] [id number] [address] [place] [address], [place] [address] 11 Jan, 2011 [facility] [address] [id number] [address] [place] [address], [place] [address] 17 Dec, 2010 [facility] [address] [id number] [address] [place] [address], [place] [address] 08 Feb, 2010 [facility] [address] [id number] [address] [place] [address], [place] [address] 02 Feb, 2010 [facility] [address] [id number] [address] [place] [address], [place] [address] Feb, [facility] [address] [id number] [address] [place] [address], [place] [address] Feb, [facility] [address] [id number] [address] [place] [id number] 15 Dec, 2009 [facility] [address] [id number] [address] [place] [address], [place] [address] 15 Dec, 2009 [facility] [address] [id number] [address] [place] [address], [place] [address] Oct, [facility] [address] [id number] [address] [place] [id number] 15 Jun, 2009 [facility] [address] [id number] [address] [place] [id number] Feb, [facility] [address] [facility] [id number] [address] [place] [phone] Feb, [facility] [address] [facility] [id number] [address] [place] [phone] Feb, [facility] [address] [facility] [id number] [address] [place] [id number] Dec, IMMUNIZATIONS No Known Immunizations SOCIAL HISTORY [...]
[2019-10-19] MEDS ORDERED: MIDAZOLAM 2 MG/2 ML (VERSED) VIAL ONE (12:48)
--- OUTSIDE RECORDS SUMMARY | 2019-10-19 12:48 | XMS REPORT ---
Author Author Mary Jane Mcginnis Doctor Organization [facility] Address Unknown Phone Unavailable Care Team Providers Care [employer] Sales Manager Name Role Phone Migration, Doctor Unavailable Unavailable PROBLEMS Type Condition ICD9-CM Code KZY11-DZ Code Onset Dates Condition S tatus SNOMED Code Problem Thyroid follicular adenoma D34 Act phylicia 808635570 Problem History of DVT (deep vein thrombosis) Z86.718 Active 557843603 Problem Factor V Leiden D68.51 Active 3070 97438 Problem custodial (current) use of anticoagulants Z79.01 Active 077205460 Problem Hypertriglyceridemia E78.1 Active 714410259 Problem 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 Active 164911408 Problem Pelvic pain R10.2 Active 51941538 Problem Peripheral edema R60.9 Active 271 025520 Problem Moderate episode of recurrent major depressive disorder F33.1 Active 442539914 Problem Presence of IVC filter Z95.828 Active 640044988 Problem Vitamin D deficiency E55.9 Active 28270814 Problem Generalized anxiety disorder F41.1 A ctive 833314977 Problem Excessive daytime sleepiness G47.19 A ctive 310585301098 Problem Gastroesophageal reflux disease, esophagitis pre sence not specified K21.9 Active 217923447 Problem Thyroid nodule E04.1 Active 00983 5005 Problem Morbid obesity E66.01 Active 56381 6002 ALLERGIES No Information ENCOUNTERS Encounter Location Date Diagnosis [place] [id number] [place] [address] Apr, Back pain with history of spinal surgery M54.9 [place] [address] [address] Apr, [place] [address] [address] 10 Apr, 2019 Gastroenteritis K52.9 ; Back pain with h istory of spinal surgery M54.9 ; Dermatofibroma of lower leg, unspecified laterality D23.70 and Morbid obesity E66.01 [place] [address] [address] Mar, [place] [address] [address] Jan, [place] [address] [address] Jan, [place] [address] [address] Dec, Encounter for weight management Z76.89 [place] [address] [address] Dec, Encounter for weight management Z76.89 a nd Screening mammogram, encounter for Z12.31 [place] [address] [address] Nov, Encounter for weight management Z76.89 [place] [address] [address] Nov, Thyroid nodule E04.1 [place] [address] [address] Nov, Thyroid nodule E04.1 [place] [address] [address] Nov, Thyroid nodule E04.1 [place] [address] [address] Oct, Syncope, unspecified syncope type R55 an d Encounter for weight management Z76.89 [place] [address] [address] Oct, Morbid obesity E66.01 [place] [address] [address] Oct, Hypertriglyceridemia E78.1 [place] [address] [address] Oct, [place] [address] [address] Oct, Hypertriglyceridemia E78.1 [facility] [address] [address] Sep, Hypertriglyceridemia E78.1 and Vitamin D deficiency E55.9 [facility] [address] [address] Sep, [facility] [address] [address] Sep, Morbid obesity E66.01 ; Moderate episode of recurrent major depressive disorder F33.1 ; Hypertriglyceridemia E78.1 and Vitamin D deficiency E55.9 [facility] [address] [address] Aug, [facility] [address] [address] July, [facility] [address] [address] July, [facility] [address] [address] Jun, [facility] [address] [address] Jun, [facility] [address] [address] Jun, Closed compression fracture of L3 lumbar vertebra with routine healing, subsequent encounter S32.030D and Drug-induced constipation K59.03 [facility] [address] [address] Jun, [facility] [address] [address] Jun, [facility] [address] [address] Apr, [facility] [address] [address] Apr, Morbid obesity E66.01 [facility] [address] [place] [address] 12 Apr, 2018 Morbid obesity E66.01 ; Hypertriglycerid emia E78.1 ; Gastroesophageal reflux disease, esophagitis presence not specified K21.9 and Joint pain M25.50 [facility] [address] [place] [id number] [place] [address] Feb, [facility] [address] [place] [id number] [place] [address] Feb, [facility] [address] [facility] [id number] [place] [address] Jan, Acute bacterial conjunctivit is H10.30 [facility] [address] [address] 08 Dec, 2017 [facility] [address] [address] 04 Dec, 2017 [facility] [address] [address] 17 Nov, 2017 [facility] [address] [address] 07 Nov, 2017 Obstructive sleep apnea G47.33 ; Morbid obesity E66.01 and Gastroesophageal reflux disease, esophagitis presence not specified K21.9 [facility] [address] [facility] [place] [id number] 06 Nov, 2017 Encounter for examination of eyes and vi ray without abnormal findings Z01.00 [facility] [address] [place] [address] 31 Oct, 2017 Thyroid nodule E04.1 and Screening for b reast cancer Z12.31 [facility] [address] [place] [address] 23 Oct, 2017 History of DVT (deep vein thrombosis) Z8 6.718 ; Thyroid nodule E04.1 and Gastroesophageal reflux disease, esophagitis presence not specified K21.9 [facility] [address] [address] Oct, [facility] [address] [address] Sep, [place] [address] [address] Aug, [place] [address] [address] Aug, [place] [address] [address] Aug, Acute pain of left shoulder M25.512 and Thyroid nodule E04.1 [place] [address] [address] July, Superior glenoid labrum lesion of left mehdi roy, subsequent encounter S43.432D [place] [address] [address] Jun, History of DVT (deep vein thrombosis) Z8 6.718 [place] [address] [address] Jun, History of DVT (deep vein thrombosis) Z8 6.718 [place] [address] [address] Jun, Impingement syndrome, shoulder, left M75 .42 [place] [address] [address] May, Subacromial bursitis of left shoulder saurabh int M75.52 [place] [address] [address] May, [address] [address] May, Hypertriglyceridemia E78.1 ; terminal gauger ( current) use of anticoagulants Z79.01 and Excessive daytime sleepiness G47.19 [place] [address] [address] May, History of DVT (deep vein thrombosis) Z8 6.718 ; Generalized anxiety disorder F41.1 ; Hypertriglyceridemia E78.1 ; terminal gauger (current) use of anticoagulants Z79.01 ; Subacromial bursitis of left shoulder joint M75.52 and Excessive daytime sleepiness G47.19 [place] [address] [address] May, [place] [address] [address] May, terminal gauger (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 Z79.01 [place] [address] [address] Apr, custodial (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 Z79.01 [place] [address] [address] Apr, terminal gauger (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 Z79.01 [place] [address] [address] 20 Apr, 2017 custodial (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 Z79.01 [place] [address] [address] Apr, [place] [address] [address] 16 Apr, 2017 custodial (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 Z79.01 [place] [address] [address] 13 Apr, 2017 custodial (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 Z79.01 [place] [address] [address] Apr, custodial (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 Z79.01 [place] [address] [address] Apr, terminal gauger (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 Z79.01 [place] [address] [address] 07 Apr, 2017 terminal gauger (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 Z79.01 [place] [address] [address] Apr, custodial (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 Z79.01 [facility] [address] [address] Mar, terminal gauger (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 Z79.01 [facility] [address] [address] Mar, [facility] [address] [address] Mar, custodial (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 Z79.01 [facility] [address] [id number] Jan, Dental examination Z01.20 [facility] [address] [id number] Jan, [facility] [address] [address] Jan, custodial (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 Z79.01 [facility] [address] [address] Jan, History of DVT (deep vein thrombosis) Z8 6.718 [place] [address] [address] Jan, Generalized anxiety disorder F41.1 and P eripheral edema R60.9 [facility] [address] [address] Nov, History of DVT (deep vein thrombosis) Z8 6.718 [facility] [address] [address] Nov, terminal gauger (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 Z79.01 [facility] [address] [facility] [id number] [address] [place] [address] Nov, Acute non-recurrent maxillar y sinusitis J01.00 [facility] [address] [address] Oct, custodial (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 Z79.01 [place] [address] [address] Oct, Personal history of venous thrombosis an d embolism Z86.718 [place] [address] [address] Sep, [place] [address] [address] Sep, Personal history of venous thrombosis an d embolism Z86.718 [place] [address] [address] Sep, terminal gauger (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 Z79.01 [place] [address] [address] Sep, custodial (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 Z79.01 [place] [address] [address] Sep, Generalized anxiety disorder F41.1 and H istory of DVT (deep vein thrombosis) Z86.718 [place] [address] [address] Aug, History of DVT (deep vein thrombosis) Z8 6.718 ; Generalized anxiety disorder F41.1 ; custodial (current) use of anticoagulants Z79.01 ; Pelvic pain R10.2 ; Hypertriglyceridemia E78.1 ; Excessive daytime sleepiness G47.19 ; Colon cancer screening Z12.11 ; Screening for breast cancer Z12.39 ; Peripheral edema R60.9 and Gastroesophageal reflux disease, esophagitis presence not specified K21.9 [place] [address] [address] Aug, [place] [address] [address] July, [place] [address] [address] July, History of DVT (deep vein thrombosis) Z8 6.718 [place] [address] [address] Jun, Generalized anxiety disorder F41.1 [place] [address] [address] Jun, History of DVT (deep vein thrombosis) Z8 6.718 [place] [address] [address] Jun, History of DVT (deep vein thrombosis) Z8 6.718 [place] [address] [address] Jun, History of DVT (deep vein thrombosis) Z8 6.718 [place] [address] [address] Jun, History of DVT (deep vein thrombosis) Z8 6.718 [place] [address] [address] May, History of DVT (deep vein thrombosis) Z8 6.718 [place] [address] [address] May, custodial (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 Z79.01 [place] [address] [address] May, terminal gauger (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 Z79.01 [place] [address] [address] May, History of DVT (deep vein thrombosis) Z8 6.718 [facility] [address] [facility] [id number] [address] [place] [address] Apr, Bacterial conjunctivitis of left eye H10.9 and H/O motion sickness Z87.898 [facility] [address] [address] Apr, History of DVT (deep vein thrombosis) Z8 6.718 [place] [address] [address] 23 Apr, 2016 History of DVT (deep vein thrombosis) Z8 6.718 [place] [address] [address] 15 Apr, 2016 History of DVT (deep vein thrombosis) Z8 6.718 [place] [address] [address] 14 Apr, 2016 terminal gauger (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 Z79.01 [place] [address] [address] Mar, [place] [address] [address] Mar, custodial (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 Z79.01 [place] [address] [address] Mar, Hypertriglyceridemia E78.1 and terminal gauger (current) use of anticoagulants Z79.01 [place] [address] [address] Feb, terminal gauger (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 Z79.01 [place] [address] [address] Feb, custodial (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 Z79.01 [place] [address] [address] Feb, custodial (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 Z79.01 [place] [address] [address] Dec, [place] [address] [address] Nov, [place] [address] [address] 13 Nov, 2015 History of DVT (deep vein thrombosis) Z8 6.718 ; Tremulousness R25.1 ; Generalized anxiety disorder F41.1 ; Peripheral edema R60.9 and Hypertriglyceridemia E78.1 [place] [address] [address] Oct, History of DVT (deep vein thrombosis) Z8 6.718 [place] [address] [address] Oct, [place] [address] [address] Sep, History of DVT (deep vein thrombosis) Z8 6.718 [place] [address] [address] Sep, terminal gauger (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 Z79.01 [place] [address] [address] July, [place] [address] [address] July, terminal gauger (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 Z79.01 [place] [address] [address] July, custodial (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 Z79.01 [place] [address] [address] Jun, custodial (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 Z79.01 [facility] [place] [address] [place] [address] Jun, Coccyx pain M53.3 ; Encounte r for therapeutic drug level monitoring Z51.81 and terminal gauger current use 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.01 [place] [address] [address] May, Abnormal mammogram R92.8 [facility] [place] [address] [place] [id number] [place] [address] May, [facility] [place] [address] [place] [id number] [place] [address] May, Acute vaginitis N76.0 and En counter for other screening for malignant neoplasm of breast Z12.39 [place] [address] [address] Apr, [place] [address] [place] [id number] Apr, [place] [address] [address] Apr, Peripheral edema R60.9 [place] [address] [place] [address] Apr, terminal gauger (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 Z79.01 [place] [address] [address] Apr, Peripheral edema R60.9 and terminal gauger (cu rrent) use of anticoagulants Z79.01 [place] [address] [address] Apr, terminal gauger (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 Z79.01 [place] [address] [address] Apr, [place] [address] [address] Apr, custodial (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 Z79.01 [place] [address] [address] Apr, Peripheral edema R60.9 [place] [address] [address] Mar, terminal gauger (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 Z79.01 [place] [address] [address] Mar, custodial (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 Z79.01 and Hypertriglyceridemia E78.1 [place] [address] [address] Mar, custodial (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 Z79.01 [place] [address] [address] Mar, terminal gauger (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 Z79.01 [place] [address] [address] Mar, [place] [address] [address] Mar, custodial (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 Z79.01 ; Hypertriglyceridemia E78.1 ; Personal history of venous thrombosis and embolism Z86.718 and Lump R22.9 [place] [address] [address] Mar, Personal history of venous thrombosis an d embolism Z86.718 [place] [address] [address] Mar, Personal history of venous thrombosis an d embolism Z86.718 [place] [address] [address] Mar, [place] [address] [address] Dec, Personal history of venous thrombosis an d embolism Z86.718 [place] [address] [address] Dec, Personal history of venous thrombosis an d embolism V12.51 [place] [address] [address] 28 Nov, 2014 Personal history of venous thrombosis an d embolism V12.51 [place] [address] [address] 25 Nov, 2014 Personal history of venous thrombosis an d embolism V12.51 [place] [address] [address] 17 Nov, 2014 Personal history of venous thrombosis an d embolism V12.51 [place] [address] [address] Nov, Personal history of venous thrombosis an d embolism V12.51 [facility] [address] [address] Nov, [facility] [address] [address] Oct, Dysuria 788.1 [place] [address] [address] Oct, Personal history of venous thrombosis an d embolism V12.51 [facility] [address] [address] Oct, [place] [address] [address] Oct, Personal history of venous thrombosis an d embolism V12.51 [place] [address] [address] Sep, Personal history of venous thrombosis an d embolism V12.51 [place] [address] [address] Sep, Personal history of venous thrombosis an d embolism V12.51 [place] [address] [address] Aug, Personal history of venous thrombosis an d embolism V12.51 [place] [address] [address] Aug, Personal history of venous thrombosis an d embolism V12.51 [place] [address] [address] Aug, Personal history of venous thrombosis an d embolism V12.51 [place] [address] [address] July, Generalized anxiety disorder 300.02 ; Ab dominal pain, left lower quadrant 789.04 and Personal history of venous thrombosis and embolism V12.51 [place] [address] [address] Jun, [facility] [address] [facility] [place] [address] Jun, [facility] [address] [facility] [place] [address] May, [facility] [address] [facility] [place] [address] May, [facility] [address] [facility] [place] [address] May, [facility] [address] [facility] [place] [address] May, [facility] [address] [facility] [place] [address] May, [facility] [address] [id number] [place] [address] May, [facility] [address] [facility] [place] [address] May, [facility] [address] [facility] [place] [address] May, [facility] [address] [facility] [place] [address] Apr, [facility] [address] [facility] [place] [address] Apr, [facility] [address] [facility] [place] [address] Apr, [facility] [address] [facility] [place] [address] Apr, [facility] [address] [id number] [place] [address] Apr, [facility] [address] [id number] [place] [address] Mar, [facility] [address] [facility] [place] [address] Mar, [facility] [address] [id number] [place] [address] Mar, [facility] [address] [id number] [place] [address] Mar, [facility] [address] [facility] [place] [address] Mar, [facility] [address] [id number] [place] [address] Mar, [facility] [address] [id number] [place] [address] Feb, [facility] [address] [id number] [place] [address] Feb, [facility] [address] [id number] [place] [address] Feb, [facility] [address] [id number] [place] [address] Feb, [facility] [address] [id number] [place] [address] Feb, [facility] [address] [id number] [place] [address] Feb, [facility] [address] [id number] [place] [address] Feb, [facility] [address] [id number] [place] [address] Feb, [facility] [address] [id number] [place] [address] Feb, [facility] [address] [id number] [place] [address] Feb, [facility] [address] [id number] [place] [address] Jan, [facility] [address] [id number] [place] [address] Jan, [facility] [address] [id number] [place] [address] Jan, [facility] [address] [id number] [place] [address] Jan, [facility] [address] [facility] [id number] [place] [address] Jan, [facility] [address] [id number] [place] [address] Jan, [facility] [address] [id number] [place] [address] Jan, [facility] [address] [id number] [place] [address] Jan, [facility] [address] [id number] [place] [address] Jan, [facility] [address] [id number] [place] [address] Jan, [facility] [address] [id number] [place] [address] Dec, [facility] [address] [id number] [place] [address] Dec, [facility] [address] [id number] [place] [address] Dec, [facility] [address] [id number] [place] [address] Dec, [facility] [address] [id number] [place] [address] Dec, [facility] [address] [id number] [place] [address] Dec, [facility] [address] [id number] [place] [address] Dec, [facility] [address] [id number] [place] [address] Dec, [facility] [address] [id number] [place] [address] Dec, [facility] [address] [id number] [place] [address] Dec, [facility] [address] [id number] [place] [address] Dec, 2013 [facility] [address] [id number] [place] [address] Dec, [facility] [address] [id number] [place] [address] Dec, 2013 [facility] [address] [id number] [place] [address] Dec, [facility] [address] [id number] [place] [address] Dec, [facility] [address] [id number] [place] [address] 30 Nov, 2013 [facility] [address] [facility] [id number] [place] [address] 30 Nov, 2013 [facility] [address] [id number] [place] [address] 26 Nov, 2013 [facility] [address] [id number] [place] [address] 26 Nov, 2013 [facility] [address] [id number] [place] [address] 24 Nov, 2013 [facility] [address] [id number] [place] [address] 24 Sep, 2013 [facility] [address] [id number] [place] [address] 23 Nov, 2013 [facility] [address] [id number] [place] [address] 23 Sep, 2013 [facility] [address] [id number] [place] [address] 18 Sep, 2013 [facility] [address] [id number] [place] [address] 18 Sep, 2013 [facility] [address] [id number] [place] [address] 17 Sep, 2013 [facility] [address] [id number] [place] [address] 17 Nov, 2013 [facility] [address] [facility] [id number] [place] [address] 11 Nov, 2013 [facility] [address] [facility] [id number] [place] [address] 11 Nov, 2013 [facility] [address] [id number] [place] [address] 10 Nov, 2013 [facility] [address] [facility] [id number] [place] [address] 10 Nov, 2013 [facility] [address] [facility] [id number] [place] [address] 08 Nov, 2013 [facility] [address] [facility] [id number] [place] [address] 08 Nov, 2013 [facility] [address] [id number] [place] [address] Sep, 2013 [facility] [address] [id number] [place] [address] Sep, 2013 [facility] [address] [facility] [id number] [place] [address] Sep, 2013 [facility] [address] [id number] [place] [address] Sep, 2013 [facility] [address] [id number] [place] [address] Sep, 2013 [facility] [address] [id number] [place] [address] Sep, 2013 [facility] [address] [facility] [id number] [place] [address] Aug, [facility] [address] [id number] [place] [address] Aug, [facility] [address] [facility] [id number] [place] [address] Aug, [facility] [address] [id number] [place] [address] Aug, [facility] [address] [id number] [place] [address] 24 Aug, 2013 [facility] [address] [id number] [place] [address] Aug, [facility] [address] [facility] [id number] [place] [address] Aug, [facility] [address] [id number] [place] [address] Aug, [facility] [address] [id number] [place] [address] Aug, [facility] [address] [id number] [place] [address] Aug, [facility] [address] [id number] [place] [address] Aug, [facility] [address] [id number] [place] [address] July, [facility] [address] [id number] [place] [address] July, [facility] [address] [id number] [place] [address] Jun, [facility] [address] [id number] [place] [address] Jun, [facility] [address] [id number] [place] [address] Jun, [facility] [address] [id number] [place] [address] Jun, [facility] [address] [id number] [place] [address] Jun, [facility] [address] [id number] [place] [address] Jun, [facility] [address] [id number] [place] [address] 15 Jun, 2013 [facility] [address] [id number] [place] [address] 15 Jun, 2013 [facility] [address] [id number] [place] [address] 11 Jun, 2013 [facility] [address] [id number] [place] [address] 11 Jun, 2013 [facility] [address] [id number] [place] [address] 10 Jun, 2013 [facility] [address] [id number] [place] [address] Jun, [facility] [address] [id number] [place] [address] May, [facility] [address] [id number] [place] [address] May, [facility] [address] [id number] [place] [address] May, [facility] [address] [id number] [place] [address] May, [facility] [address] [id number] [place] [address] May, [facility] [address] [id number] [place] [address] May, [facility] [address] [id number] [place] [address] May, [facility] [address] [id number] [place] [address] May, [facility] [address] [id number] [place] [address] May, [facility] [address] [id number] [place] [address] May, [facility] [address] [id number] [place] [address] May, [facility] [address] [id number] [place] [address] May, [facility] [address] [id number] [place] [address] Apr, [facility] [address] [id number] [place] [address] Apr, [facility] [address] [id number] [place] [address] Apr, [facility] [address] [id number] [place] [address] Apr, [facility] [address] [id number] [place] [address] Apr, [facility] [address] [id number] [place] [address] Apr, [facility] [address] [id number] [place] [address] Apr, [facility] [address] [id number] [place] [address] Apr, [facility] [address] [id number] [place] [address] Apr, [facility] [address] [id number] [place] [address] Apr, [facility] [address] [id number] [place] [address] Apr, [facility] [address] [id number] [place] [address] Apr, [facility] [address] [id number] [place] [address] Apr, [facility] [address] [id number] [place] [address] Apr, [facility] [address] [id number] [place] [address] Apr, [facility] [address] [id number] [place] [address] Apr, [facility] [address] [id number] [place] [address] Apr, [facility] [address] [id number] [place] [address] Jan, [facility] [address] [id number] [place] [address] Jan, [facility] [address] [id number] [place] [address] 08 Jan, 2013 [facility] [address] [id number] [place] [address] Jan, [facility] [address] [id number] [place] [address] Jan, [facility] [address] [id number] [place] [address] Jan, [facility] [address] [id number] [place] [address] Jan, [facility] [address] [id number] [place] [address] Dec, [facility] [address] [id number] [place] [address] Dec, [facility] [address] [id number] [place] [address] Dec, [facility] [address] [id number] [place] [address] Nov, 2012 [facility] [address] [id number] [place] [address] 10 Nov, 2012 [facility] [address] [id number] [place] [address] 05 Nov, 2012 [facility] [address] [id number] [place] [address] 04 Nov, 2012 [facility] [address] [id number] [place] [address] Oct, [facility] [address] [id number] [place] [address] Oct, [facility] [address] [id number] [place] [address] Oct, [facility] [address] [id number] [place] [address] Oct, [facility] [address] [id number] [place] [address] Oct, [facility] [address] [id number] [place] [address] Sep, [facility] [address] [id number] [place] [address] Sep, [facility] [address] [id number] [place] [address] Sep, [facility] [address] [id number] [place] [address] Sep, [facility] [address] [id number] [place] [address] Sep, [facility] [address] [id number] [place] [address] Sep, [facility] [address] [id number] [place] [address] Sep, [facility] [address] [id number] [place] [address] Aug, [facility] [address] [id number] [place] [address] Aug, [facility] [address] [id number] [place] [address] July, [facility] [address] [id number] [place] [address] Jun, [facility] [address] [id number] [place] [address] Jun, [facility] [address] [id number] [place] [address] Jun, [facility] [address] [id number] [place] [address] Apr, [facility] [address] [id number] [place] [address] Apr[facility] [address] [id number] [place] [address] Apr, [facility] [address] [id number] [place] [address] Mar, [facility] [address] [id number] [place] [address] Mar, [facility] [address] [id number] [place] [address] Mar, [facility] [address] [id number] [place] [address] Mar, [facility] [address] [id number] [place] [address] Mar, [facility] [address] [id number] [place] [address] 14 Feb, 2012 [facility] [address] [id number] [place] [address] 14 Feb, 2012 [facility] [address] [id number] [place] [address] Jan, [facility] [address] [id number] [place] [address] Jan, [facility] [address] [id number] [place] [address] 13 Jan, 2012 [facility] [address] [id number] [place] [address] 13 Jan, 2012 [facility] [address] [id number] [place] [address] Jan, [facility] [address] [id number] [place] [address] 07 Jan, 2012 [facility] [address] [id number] [place] [address] 06 Jan, 2012 [facility] [address] [id number] [place] [address] Dec, [facility] [address] [facility] [id number] [place] [address] Dec, [facility] [address] [id number] [place] [address] Dec, [facility] [address] [id number] [place] [address] Dec, [facility] [address] [id number] [place] [address] Dec, [facility] [address] [id number] [place] [address] Dec, [facility] [address] [id number] [place] [address] Dec, [facility] [address] [id number] [place] [address] Dec, [facility] [address] [id number] [place] [address] Dec, [facility] [address] [id number] [place] [address] Dec, [facility] [address] [id number] [place] [address] Oct, [facility] [address] [id number] [place] [address] Oct, [facility] [address] [id number] [place] [address] Aug, [facility] [address] [id number] [place] [address] Aug, [facility] [address] [id number] [place] [address] July, [facility] [address] [id number] [place] [address] Jun, [facility] [address] [id number] [place] [address] Jun, [facility] [address] [id number] [place] [address] May, [facility] [address] [id number] [place] [address] Apr, [facility] [address] [id number] [place] [address] Apr, [facility] [address] [id number] [place] [address] Mar, [facility] [address] [id number] [place] [address] Mar, [facility] [address] [id number] [place] [address] Feb, [facility] [address] [id number] [place] [address] 15 Feb, 2011 [facility] [address] [id number] [place] [address] Feb, [facility] [address] [id number] [place] [address] Feb, [facility] [address] [id number] [place] [address] Jan, [facility] [address] [id number] [place] [address] 17 Dec, 2010 [facility] [address] [id number] [place] [address] 08 Feb, 2010 [facility] [address] [id number] [place] [address] Feb, [facility] [address] [id number] [place] [address] Feb, [facility] [address] [id number] [place] [address] Feb, [facility] [address] [id number] [place] [address] 15 Dec, 2009 [facility] [address] [id number] [place] [address] Dec, [facility] [address] [id number] [place] [address] Oct, [facility] [address] [id number] [place] [address] Jun, [facility] [address] [id number] [place] [address] Feb, [facility] [address] [id number] [place] [address] Feb, [facility] [address] [id number] [place] [address] Feb, [facility] [address] [id number] [place] [address] Dec, IMMUNIZATIONS No Known Immunizations SOCIAL HISTORY [...] 1985, 1987 Surgical History cholecystectomy Surgical History [place] Filter 06/2009 Surgical History Left leg exploratory surgery r/t clot Surgical History left shoulder surgery 09/14/17 Surgical History lap band removed 12/2017 Surgical History gastic sleeve 01/2018 Surgical History Back surgery 2019 Surgical History Partial Thyroidectomy - left side 2019 Hospitalization History Ruptured Ovarian Cyst with abd bleed ing 11/2009 Hospitalization History Broken Back 06/2018
--- OUTSIDE RECORDS SUMMARY | 2019-10-19 12:48 | XMS REPORT ---
Author Author Mary Jane Mcginnis Doctor Organization [facility] Address Unknown Phone Unavailable Care Team Providers Care [employer] Name Role Phone Migration, Doctor Unavailable Unavailable PROBLEMS Type Condition ICD9-CM Code [id number] Code Onset Dates Condition S tatus SNOMED Code Problem Thyroid follicular adenoma D34 Act phylicia 693055723 Problem History of DVT (deep vein thrombosis) Z86.718 Active 760313814 Problem Factor V Leiden D68.51 Active 3070 63068 Problem [facility] (current) use of anticoagulants Z79.01 Active 959237987 Problem Hypertriglyceridemia E78.1 Active 851242041 Problem 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 Active 471032940 Problem Pelvic pain R10.2 Active 46344191 Problem Peripheral edema R60.9 Active 271 020527 Problem Moderate episode of recurrent major depressive disorder F33.1 Active 514061471 Problem Presence of IVC filter Z95.828 Active 091643397 Problem Vitamin D deficiency E55.9 Active 00934751 Problem Generalized anxiety disorder F41.1 A ctive 204505234 Problem Excessive daytime sleepiness G47.19 A ctive 342842926989 Problem Gastroesophageal reflux disease, esophagitis pre sence not specified K21.9 Active 851438903 Problem Thyroid nodule E04.1 Active 83878 5005 Problem Morbid obesity E66.01 Active 66430 6002 ALLERGIES No Information ENCOUNTERS Encounter Location Date Diagnosis [place] [id number] [place] [address] 12 Apr, 2019 Back pain with history of spinal surgery M54.9 [place] [address] [address] Apr, [place] [address] [address] 10 Apr, 2019 Gastroenteritis K52.9 ; Back pain with h istory of spinal surgery M54.9 ; Dermatofibroma of lower leg, unspecified laterality D23.70 and Morbid obesity E66.01 [place] [address] [address] Mar, [place] [address] [address] Jan, [place] [address] [address] Jan, [place] [address] [address] Dec, Encounter for weight management Z76.89 [place] [address] [address] Dec, Encounter for weight management Z76.89 a nd Screening mammogram, encounter for Z12.31 [place] [address] [address] Nov, Encounter for weight management Z76.89 [place] [address] [address] Nov, Thyroid nodule E04.1 [place] [address] [address] Nov, Thyroid nodule E04.1 [place] [address] [address] Nov, Thyroid nodule E04.1 [place] [address] [address] Oct, Syncope, unspecified syncope type R55 an d Encounter for weight management Z76.89 [place] [address] [address] Oct, Morbid obesity E66.01 [place] [address] [address] Oct, Hypertriglyceridemia E78.1 [place] [address] [address] Oct, [place] [address] [address] Oct, Hypertriglyceridemia E78.1 [facility] [address] [address] Sep, Hypertriglyceridemia E78.1 and Vitamin D deficiency E55.9 [facility] [address] [address] Sep, [facility] [address] [address] Sep, Morbid obesity E66.01 ; Moderate episode of recurrent major depressive disorder F33.1 ; Hypertriglyceridemia E78.1 and Vitamin D deficiency E55.9 [facility] [address] [address] Aug, [facility] [address] [address] July, [facility] [address] [address] July, [facility] [address] [address] Jun, [facility] [address] [address] Jun, [facility] [address] [address] Jun, Closed compression fracture of L3 lumbar vertebra with routine healing, subsequent encounter S32.030D and Drug-induced constipation K59.03 [facility] [address] [address] Jun, [facility] [address] [address] Jun, [facility] [address] [address] Apr, [facility] [address] [address] Apr, Morbid obesity E66.01 [facility] [address] [place] [address] 12 Apr, 2018 Morbid obesity E66.01 ; Hypertriglycerid emia E78.1 ; Gastroesophageal reflux disease, esophagitis presence not specified K21.9 and Joint pain M25.50 [facility] [address] [id number] [place] [address] Feb, [facility] [id number] [place] [address] Feb, [facility] [address] [facility] [id number] [place] [address] Jan, Acute bacterial conjunctivit is H10.30 [facility] [address] [address] 08 Dec, 2017 [facility] [address] [address] 04 Dec, 2017 [facility] [address] [address] 17 Nov, 2017 [facility] [address] [address] 07 Nov, 2017 Obstructive sleep apnea G47.33 ; Morbid obesity E66.01 and Gastroesophageal reflux disease, esophagitis presence not specified K21.9 [facility] [address] [facility] [place] [id number] 06 Nov, 2017 Encounter for examination of eyes and vi ray without abnormal findings Z01.00 [facility] [id number] [place] [address] 31 Oct, 2017 Thyroid nodule E04.1 and Screening for b reast cancer Z12.31 [facility] [id number] [place] [address] 23 Oct, 2017 History of DVT (deep vein thrombosis) Z8 6.718 ; Thyroid nodule E04.1 and Gastroesophageal reflux disease, esophagitis presence not specified K21.9 [facility] [address] [address] Oct, [facility] [address] [address] Sep, [place] [address] [address] Aug, [place] [address] [address] Aug, [place] [address] [address] Aug, Acute pain of left shoulder M25.512 and Thyroid nodule E04.1 [place] [address] [address] July, Superior glenoid labrum lesion of left mehdi roy, subsequent encounter S43.432D [place] [address] [address] Jun, History of DVT (deep vein thrombosis) Z8 6.718 [place] [address] [address] Jun, History of DVT (deep vein thrombosis) Z8 6.718 [place] [address] [address] Jun, Impingement syndrome, shoulder, left M75 .42 [place] [address] [address] May, Subacromial bursitis of left shoulder saurabh int M75.52 [place] [address] [address] May, [address] [address] May, Hypertriglyceridemia E78.1 ; 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 and Excessive daytime sleepiness G47.19 [place] [address] [address] May, History of DVT (deep vein thrombosis) Z8 6.718 ; Generalized anxiety disorder F41.1 ; Hypertriglyceridemia E78.1 ; 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 ; Subacromial bursitis of left shoulder joint M75.52 and Excessive daytime sleepiness G47.19 [place] [address] [address] May, [place] [address] [address] May, 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 [place] [address] [address] Apr, [facility] (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 Z79.01 [place] [address] [address] Apr, 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 [place] [address] [address] 20 Apr, 2017 [facility] (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 Z79.01 [place] [address] [address] Apr, [place] [address] [address] 16 Apr, 2017 [facility] (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 Z79.01 [place] [address] [address] 13 Apr, 2017 [facility] (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 Z79.01 [place] [address] [address] Apr, [facility] (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 Z79.01 [place] [address] [address] Apr, 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 [place] [address] [address] 07 Apr, 2017 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 [place] [address] [address] Apr, [facility] (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 Z79.01 [facility] [address] [address] Mar, 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 [facility] [address] [address] Mar, [facility] [address] [address] Mar, [facility] (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 Z79.01 [facility] [address] [id number] Jan, Dental examination Z01.20 [facility] [address] [id number] Jan, [facility] [address] [address] Jan, [facility] (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 Z79.01 [facility] [address] [address] Jan, History of DVT (deep vein thrombosis) Z8 6.718 [place] [address] [address] Jan, Generalized anxiety disorder F41.1 and P eripheral edema R60.9 [facility] [address] [address] Nov, History of DVT (deep vein thrombosis) Z8 6.718 [facility] [address] [address] Nov, 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 [facility] [address] [facility] [id number] [address] [place] [address] Nov, Acute non-recurrent maxillar y sinusitis J01.00 [facility] [address] [address] Oct, [facility] (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 Z79.01 [place] [address] [address] Oct, Personal history of venous thrombosis an d embolism Z86.718 [place] [address] [address] Sep, [place] [address] [address] Sep, Personal history of venous thrombosis an d embolism Z86.718 [place] [address] [address] Sep, 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 [place] [address] [address] Sep, [facility] (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 Z79.01 [place] [address] [address] Sep, Generalized anxiety disorder F41.1 and H istory of DVT (deep vein thrombosis) Z86.718 [place] [address] [address] Aug, History of DVT (deep vein thrombosis) Z8 6.718 ; Generalized anxiety disorder F41.1 ; [facility] (current) use of anticoagulants Z79.01 ; Pelvic pain R10.2 ; Hypertriglyceridemia E78.1 ; Excessive daytime sleepiness G47.19 ; Colon cancer screening Z12.11 ; Screening for breast cancer Z12.39 ; Peripheral edema R60.9 and Gastroesophageal reflux disease, esophagitis presence not specified K21.9 [place] [address] [address] Aug, [place] [address] [address] July, [place] [address] [address] July, History of DVT (deep vein thrombosis) Z8 6.718 [place] [address] [address] Jun, Generalized anxiety disorder F41.1 [place] [address] [address] Jun, History of DVT (deep vein thrombosis) Z8 6.718 [place] [address] [address] Jun, History of DVT (deep vein thrombosis) Z8 6.718 [place] [address] [address] Jun, History of DVT (deep vein thrombosis) Z8 6.718 [place] [address] [address] Jun, History of DVT (deep vein thrombosis) Z8 6.718 [place] [address] [address] May, History of DVT (deep vein thrombosis) Z8 6.718 [place] [address] [address] May, [facility] (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 Z79.01 [place] [address] [address] May, 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 [place] [address] [address] May, History of DVT (deep vein thrombosis) Z8 6.718 [facility] [address] [facility] [id number] [address] [place] [address] Apr, Bacterial conjunctivitis of left eye H10.9 and H/O motion sickness Z87.898 [facility] [address] [address] Apr, History of DVT (deep vein thrombosis) Z8 6.718 [place] [address] [address] 23 Apr, 2016 History of DVT (deep vein thrombosis) Z8 6.718 [place] [address] [address] 15 Apr, 2016 History of DVT (deep vein thrombosis) Z8 6.718 [place] [address] [address] 14 Apr, 2016 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 [place] [address] [address] Mar, [place] [address] [address] Mar, [facility] (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 Z79.01 [place] [address] [address] Mar, Hypertriglyceridemia E78.1 and 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 [place] [address] [address] Feb, 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 [place] [address] [address] Feb, [facility] (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 Z79.01 [place] [address] [address] Feb, [facility] (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 Z79.01 [place] [address] [address] Dec, [place] [address] [address] Nov, [place] [address] [address] 13 Nov, 2015 History of DVT (deep vein thrombosis) Z8 6.718 ; Tremulousness R25.1 ; Generalized anxiety disorder F41.1 ; Peripheral edema R60.9 and Hypertriglyceridemia E78.1 [place] [address] [address] Oct, History of DVT (deep vein thrombosis) Z8 6.718 [place] [address] [address] Oct, [place] [address] [address] Sep, History of DVT (deep vein thrombosis) Z8 6.718 [place] [address] [address] Sep, 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 [place] [address] [address] July, [place] [address] [address] July, 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 [place] [address] [address] July, [facility] (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 Z79.01 [place] [address] [address] Jun, [facility] (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 Z79.01 [facility] [place] [address] [place] [address] Jun, Coccyx pain M53.3 ; Encounte r for therapeutic drug level monitoring Z51.81 and 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.01 [place] [address] [address] May, Abnormal mammogram R92.8 [facility] [place] [address] [place] [address] [id number] [place] [address] May, [facility] [place] [address] [place] [address] [id number] [place] [address] May, Acute vaginitis N76.0 and En counter for other screening for malignant neoplasm of breast Z12.39 [place] [address] [address] Apr, [place] [address] [place] [id number] Apr, [place] [address] [address] Apr, Peripheral edema R60.9 [place] [address] [place] [address] [address] Apr, 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 [place] [address] [address] Apr, Peripheral edema R60.9 and 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 (cu rrent) use of anticoagulants Z79.01 [place] [address] [address] Apr, 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 [place] [address] [address] Apr, [place] [address] [address] Apr, [facility] (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 Z79.01 [place] [address] [address] Apr, Peripheral edema R60.9 [place] [address] [address] Mar, 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 [place] [address] [address] Mar, [facility] (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 Z79.01 and Hypertriglyceridemia E78.1 [place] [address] [address] Mar, [facility] (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 Z79.01 [place] [address] [address] Mar, 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 [place] [address] [address] Mar, [place] [address] [address] Mar, [facility] (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 Z79.01 ; Hypertriglyceridemia E78.1 ; Personal history of venous thrombosis and embolism Z86.718 and Lump R22.9 [place] [address] [address] Mar, Personal history of venous thrombosis an d embolism Z86.718 [place] [address] [address] Mar, Personal history of venous thrombosis an d embolism Z86.718 [place] [address] [address] Mar, [place] [address] [address] Dec, Personal history of venous thrombosis an d embolism Z86.718 [place] [address] [address] Dec, Personal history of venous thrombosis an d embolism V12.51 [place] [address] [address] 28 Nov, 2014 Personal history of venous thrombosis an d embolism V12.51 [place] [address] [address] 25 Nov, 2014 Personal history of venous thrombosis an d embolism V12.51 [place] [address] [address] 17 Nov, 2014 Personal history of venous thrombosis an d embolism V12.51 [place] [address] [address] Nov, Personal history of venous thrombosis an d embolism V12.51 [facility] [address] [address] Nov, [facility] [address] [address] Oct, Dysuria 788.1 [place] [address] [address] Oct, Personal history of venous thrombosis an d embolism V12.51 [facility] [address] [address] Oct, [place] [address] [address] Oct, Personal history of venous thrombosis an d embolism V12.51 [place] [address] [address] Sep, Personal history of venous thrombosis an d embolism V12.51 [place] [address] [address] Sep, Personal history of venous thrombosis an d embolism V12.51 [place] [address] [address] Aug, Personal history of venous thrombosis an d embolism V12.51 [place] [address] [address] Aug, Personal history of venous thrombosis an d embolism V12.51 [place] [address] [address] Aug, Personal history of venous thrombosis an d embolism V12.51 [place] [address] [address] July, Generalized anxiety disorder 300.02 ; Ab dominal pain, left lower quadrant 789.04 and Personal history of venous thrombosis and embolism V12.51 [place] [address] [address] Jun, [facility] [address] [id number] [place] [address] Jun, [facility] [address] [id number] [place] [address] May, [facility] [address] [id number] [place] [address] May, [facility] [address] [id number] [place] [address] May, [facility] [address] [id number] [place] [address] May, [facility] [address] [id number] [place] [address] May, [facility] [address] [id number] [place] [address] May, [facility] [address] [id number] [place] [address] May, [facility] [address] [id number] [place] [address] May, [facility] [address] [id number] [place] [address] Apr, [facility] [address] [id number] [place] [address] Apr, [facility] [address] [id number] [place] [address] Apr, [facility] [address] [id number] [place] [address] Apr, [facility] [address] [id number] [place] [address] Apr, [facility] [address] [id number] [place] [address] Mar, [facility] [address] [id number] [place] [address] Mar, [facility] [address] [id number] [place] [address] Mar, [facility] [address] [id number] [place] [address] Mar, [facility] [address] [id number] [place] [address] Mar, [facility] [address] [id number] [place] [address] Mar, [facility] [address] [id number] [place] [address] Feb, [facility] [address] [id number] [place] [address] Feb, [facility] [address] [id number] [place] [address] Feb, [facility] [address] [id number] [place] [address] Feb, [facility] [address] [id number] [place] [address] Feb, [facility] [address] [id number] [place] [address] Feb, [facility] [address] [id number] [place] [address] Feb, [facility] [address] [id number] [place] [address] Feb, [facility] [address] [id number] [place] [address] Feb, [facility] [address] [id number] [place] [address] Feb, [facility] [address] [id number] [place] [address] Jan, [facility] [address] [id number] [place] [address] Jan, [facility] [address] [id number] [place] [address] Jan, [facility] [address] [id number] [place] [address] Jan, [facility] [address] [facility] [id number] [place] [address] Jan, [facility] [address] [id number] [place] [address] Jan, [facility] [address] [facility] [id number] [place] [address] Jan, [facility] [address] [id number] [place] [address] Jan, [facility] [address] [id number] [place] [address] Jan, [facility] [address] [facility] [id number] [place] [address] Jan, [facility] [address] [id number] [place] [address] Dec, [facility] [address] [id number] [place] [address] Dec, [facility] [address] [id number] [place] [address] Dec, [facility] [address] [id number] [place] [address] Dec, [facility] [address] [id number] [place] [address] Dec, [facility] [address] [id number] [place] [address] Dec, [facility] [address] [id number] [place] [address] Dec, [facility] [address] [facility] [id number] [place] [address] Dec, [facility] [address] [facility] [id number] [place] [address] Dec, [facility] [id number] [place] [address] Dec, [facility] [address] [id number] [place] [address] Dec, 2013 [facility] [address] [id number] [place] [address] Dec, [facility] [address] [id number] [place] [address] Dec, 2013 [facility] [address] [id number] [place] [address] Dec, [facility] [address] [facility] [id number] [place] [address] Dec, [facility] [address] [facility] [id number] [place] [address] 30 Nov, 2013 [facility] [address] [facility] [id number] [place] [address] 30 Nov, 2013 [facility] [address] [facility] [facility] [id number] [place] [address] 26 Nov, 2013 [facility] [address] [id number] [place] [address] 26 Nov, 2013 [facility] [address] [facility] [id number] [place] [address] 24 Nov, 2013 [facility] [address] [facility] [id number] [place] [address] 24 Sep, 2013 [facility] [address] [facility] [facility] [id number] [place] [address] 23 Nov, 2013 [facility] [address] [facility] [id number] [place] [address] 23 Sep, 2013 [facility] [address] [facility] [id number] [place] [address] 18 Sep, 2013 [facility] [address] [facility] [id number] [place] [address] 18 Sep, 2013 [facility] [address] [facility] [id number] [place] [address] 17 Sep, 2013 [facility] [address] [id number] [place] [address] 17 Nov, 2013 [facility] [address] [facility] [id number] [place] [address] 11 Nov, 2013 [facility] [address] [facility] [id number] [place] [address] 11 Nov, 2013 [facility] [address] [id number] [place] [address] 10 Nov, 2013 [facility] [address] [facility] [id number] [place] [address] 10 Nov, 2013 [facility] [address] [facility] [id number] [place] [address] 08 Nov, 2013 [facility] [address] [facility] [id number] [place] [address] 08 Nov, 2013 [facility] [address] [id number] [place] [address] Sep, 2013 [facility] [address] [facility] [facility] [id number] [place] [address] Sep, 2013 [facility] [address] [facility] [id number] [place] [address] Sep, 2013 [facility] [address] [id number] [place] [address] Sep, 2013 [facility] [address] [facility] [id number] [place] [address] Sep, 2013 [facility] [id number] [place] [address] Sep, 2013 [facility] [address] [facility] [id number] [place] [address] Aug, [facility] [address] [facility] [id number] [place] [address] Aug, [facility] [address] [facility] [id number] [place] [address] Aug, [facility] [id number] [place] [address] Aug, [facility] [address] [id number] [place] [address] 24 Aug, 2013 [facility] [address] [id number] [place] [address] Aug, [facility] [address] [facility] [id number] [place] [address] Aug, [facility] [address] [id number] [place] [address] Aug, [facility] [address] [facility] [id number] [place] [address] Aug, [facility] [address] [facility] [id number] [place] [address] Aug, [facility] [address] [id number] [place] [address] Aug, [facility] [address] [id number] [place] [address] July, [facility] [address] [id number] [place] [address] July, [facility] [address] [facility] [id number] [place] [address] Jun, [facility] [address] [facility] [id number] [place] [address] Jun, [facility] [address] [id number] [place] [address] Jun, [facility] [address] [id number] [place] [address] Jun, [facility] [address] [facility] [id number] [place] [address] Jun, [facility] [address] [id number] [place] [address] Jun, [facility] [address] [facility] [id number] [place] [address] 15 Jun, 2013 [facility] [address] [id number] [place] [address] 15 Jun, 2013 [facility] [address] [id number] [place] [address] 11 Jun, 2013 [facility] [address] [id number] [place] [address] 11 Jun, 2013 [facility] [address] [facility] [facility] [id number] [place] [address] 10 Jun, 2013 [facility] [address] [facility] [id number] [place] [address] Jun, [facility] [address] [facility] [id number] [place] [address] May, [facility] [address] [id number] [place] [address] May, [facility] [address] [facility] [facility] [id number] [place] [address] May, [facility] [address] [id number] [place] [address] May, [facility] [address] [id number] [place] [address] May, [facility] [address] [facility] [facility] [id number] [place] [address] May, [facility] [address] [facility] [facility] [id number] [place] [address] May, [facility] [id number] [place] [address] May, [facility] [address] [facility] [id number] [place] [address] May, [facility] [address] [id number] [place] [address] May, [facility] [id number] [place] [address] May, [facility] [address] [id number] [place] [address] May, [facility] [id number] [place] [address] Apr, [facility] [address] [id number] [place] [address] Apr, [facility] [address] [id number] [place] [address] Apr, [facility] [address] [facility] [id number] [place] [address] Apr, [facility] [id number] [place] [address] Apr, [facility] [address] [id number] [place] [address] Apr, [facility] [address] [facility] [id number] [place] [address] Apr, [facility] [address] [facility] [facility] [id number] [place] [address] Apr, [facility] [address] [facility] [id number] [place] [address] Apr, [facility] [address] [facility] [id number] [place] [address] Apr, [facility] [address] [facility] [facility] [id number] [place] [address] Apr, [facility] [address] [facility] [id number] [place] [address] Apr, [facility] [address] [id number] [place] [address] Apr, [facility] [address] [facility] [id number] [place] [address] Apr, [facility] [address] [facility] [id number] [place] [address] Apr, [facility] [address] [facility] [id number] [place] [address] Apr, [facility] [address] [facility] [id number] [place] [address] Apr, [facility] [address] [facility] [facility] [id number] [place] [address] Jan, [facility] [address] [id number] [place] [address] Jan, [facility] [address] [facility] [facility] [id number] [place] [address] 08 Jan, 2013 [facility] [address] [id number] [place] [address] Jan, [facility] [address] [id number] [place] [address] Jan, [facility] [address] [id number] [place] [address] Jan, [facility] [address] [id number] [place] [address] Jan, [facility] [id number] [place] [address] Dec, [facility] [address] [id number] [place] [address] Dec, [facility] [address] [id number] [place] [address] Dec, [facility] [id number] [place] [address] Nov, 2012 [facility] [address] [id number] [place] [address] 10 Nov, 2012 [facility] [address] [id number] [place] [address] 05 Nov, 2012 [facility] [id number] [place] [address] 04 Nov, 2012 [facility] [id number] [place] [address] Oct, [facility] [id number] [place] [address] Oct, [facility] [id number] [place] [address] Oct, [facility] [address] [id number] [place] [address] Oct, [facility] [id number] [place] [address] Oct, [facility] [id number] [place] [address] Sep, [facility] [id number] [place] [address] Sep, [facility] [address] [id number] [place] [address] Sep, [facility] [id number] [place] [address] Sep, [facility] [address] [facility] [id number] [place] [address] Sep, [facility] [address] [facility] [facility] [id number] [place] [address] Sep, [facility] [address] [id number] [place] [address] Sep, [facility] [address] [facility] [id number] [place] [address] Aug, [facility] [address] [id number] [place] [address] Aug, [facility] [address] [id number] [place] [address] July, [facility] [id number] [place] [address] Jun, [facility] [address] [id number] [place] [address] Jun, [facility] [address] [id number] [place] [address] Jun, [facility] [address] [id number] [place] [address] Apr, [facility] [address] [id number] [place] [address] Apr, [facility] [id number] [place] [address] Apr, [facility] [address] [id number] [place] [address] Mar, [facility] [address] [facility] [id number] [place] [address] Mar, [facility] [address] [facility] [id number] [place] [address] Mar, [facility] [id number] [place] [address] Mar, [facility] [address] [id number] [place] [address] Mar, [facility] [address] [id number] [place] [address] 14 Feb, 2012 [facility] [address] [facility] [id number] [place] [address] 14 Feb, 2012 [facility] [address] [id number] [place] [address] Jan, [facility] [address] [id number] [place] [address] Jan, [facility] [id number] [place] [address] 13 Jan, 2012 [facility] [address] [id number] [place] [address] 13 Jan, 2012 [facility] [address] [facility] [id number] [place] [address] Jan, [facility] [address] [id number] [place] [address] 07 Jan, 2012 [facility] [address] [facility] [facility] [id number] [place] [address] 06 Jan, 2012 [facility] [address] [id number] [place] [address] Dec, [facility] [address] [facility] [id number] [place] [address] Dec, [facility] [address] [facility] [id number] [place] [address] Dec, [facility] [address] [id number] [place] [address] Dec, [facility] [address] [id number] [place] [address] Dec, [facility] [address] [id number] [place] [address] Dec, [facility] [address] [id number] [place] [address] Dec, [facility] [address] [facility] [id number] [place] [address] Dec, [facility] [address] [facility] [id number] [place] [address] Dec, [facility] [address] [id number] [place] [address] Dec, [facility] [address] [facility] [id number] [place] [address] Oct, [facility] [address] [id number] [place] [address] Oct, [facility] [address] [id number] [place] [address] Aug, [facility] [address] [id number] [place] [address] Aug, [facility] [address] [id number] [place] [address] July, [facility] [address] [id number] [place] [address] Jun, [facility] [address] [id number] [place] [address] Jun, [facility] [address] [id number] [place] [address] May, [facility] [address] [id number] [place] [address] Apr, [facility] [address] [id number] [place] [address] Apr, [facility] [address] [id number] [place] [address] Mar, [facility] [address] [id number] [place] [address] Mar, [facility] [address] [id number] [place] [address] Feb, [facility] [address] [id number] [place] [address] 15 Feb, 2011 [facility] [address] [id number] [place] [address] Feb, [facility] [address] [id number] [place] [address] Feb, [facility] [address] [id number] [place] [address] Jan, [facility] [address] [id number] [place] [address] 17 Dec, 2010 [facility] [address] [id number] [place] [address] 08 Feb, 2010 [facility] [address] [id number] [place] [address] Feb, [facility] [address] [id number] [place] [address] Feb, [facility] [address] [id number] [place] [address] Feb, [facility] [address] [id number] [place] [address] 15 Dec, 2009 [facility] [address] [id number] [place] [address] Dec, [facility] [address] [id number] [place] [address] Oct, [facility] [address] [id number] [place] [address] Jun, [facility] [address] [id number] [place] [address] Feb, [facility] [address] [id number] [place] [address] Feb, [facility] [address] [id number] [place] [address] Feb, [facility] [address] [id number] [place] [address] Dec, IMMUNIZATIONS No Known Immunizations SOCIAL HISTORY [...] 1985, 1987 Surgical History cholecystectomy Surgical History [place] Filter 06/2009 Surgical History Left leg exploratory surgery r/t clot Surgical History left shoulder surgery 09/14/17 Surgical History lap band removed 12/2017 Surgical History gastic sleeve 01/2018 Surgical History Back surgery 2019 Surgical History Partial Thyroidectomy - left side 2019 Hospitalization History Ruptured Ovarian Cyst with abd bleed ing 11/2009 Hospitalization History Broken Back 06/2018
--- OUTSIDE RECORDS SUMMARY | 2019-10-19 12:48 | XMS REPORT ---
Author Author Mary Jane Mcginnis Doctor Organization [facility] Address Unknown Phone Unavailable Care Team Providers Care Weighing Station Operator Name Role Phone Migration, Doctor Unavailable Unavailable PROBLEMS Type Condition ICD9-CM Code NPA55-AK Code Onset Dates Condition S tatus SNOMED Code Problem Thyroid follicular adenoma D34 Act phylicia 657981484 Problem History of DVT (deep vein thrombosis) Z86.718 Active 946425129 Problem Factor V Leiden D68.51 Active 3070 62878 Problem retirement (current) use of anticoagulants Z79.01 Active 326479100 Problem Hypertriglyceridemia E78.1 Active 988168662 Problem 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 Active 472067038 Problem Pelvic pain R10.2 Active 63874736 Problem Peripheral edema R60.9 Active 271 000669 Problem Moderate episode of recurrent major depressive disorder F33.1 Active 736412090 Problem Presence of IVC filter Z95.828 Active 572042476 Problem Vitamin D deficiency E55.9 Active 63701914 Problem Generalized anxiety disorder F41.1 A ctive 779667133 Problem Excessive daytime sleepiness G47.19 A ctive 671322742177 Problem Gastroesophageal reflux disease, esophagitis pre sence not specified K21.9 Active 914593920 Problem Thyroid nodule E04.1 Active 76945 5005 Problem Morbid obesity E66.01 Active 13244 6002 ALLERGIES No Information ENCOUNTERS Encounter Location Date Diagnosis [place] [id number] [place] [address] Apr, Back pain with history of spinal surgery M54.9 [place] [address] [address] Apr, [place] [address] [address] 10 Apr, 2019 Gastroenteritis K52.9 ; Back pain with h istory of spinal surgery M54.9 ; Dermatofibroma of lower leg, unspecified laterality D23.70 and Morbid obesity E66.01 [place] [address] [address] Mar, [place] [address] [address] Jan, [place] [address] [address] Jan, [place] [address] [address] Dec, Encounter for weight management Z76.89 [place] [address] [address] Dec, Encounter for weight management Z76.89 a nd Screening mammogram, encounter for Z12.31 [place] [address] [address] Nov, Encounter for weight management Z76.89 [place] [address] [address] Nov, Thyroid nodule E04.1 [place] [address] [address] Nov, Thyroid nodule E04.1 [place] [address] [address] Nov, Thyroid nodule E04.1 [place] [address] [address] Oct, Syncope, unspecified syncope type R55 an d Encounter for weight management Z76.89 [place] [address] [address] Oct, Morbid obesity E66.01 [place] [address] [address] Oct, Hypertriglyceridemia E78.1 [place] [address] [address] Oct, [place] [address] [address] Oct, Hypertriglyceridemia E78.1 [facility] [address] [address] Sep, Hypertriglyceridemia E78.1 and Vitamin D deficiency E55.9 [facility] [address] [address] Sep, [facility] [address] [address] Sep, Morbid obesity E66.01 ; Moderate episode of recurrent major depressive disorder F33.1 ; Hypertriglyceridemia E78.1 and Vitamin D deficiency E55.9 [facility] [address] [address] Aug, [facility] [address] [address] July, [facility] [address] [address] July, [facility] [address] [address] Jun, [facility] [address] [address] Jun, [facility] [address] [address] Jun, Closed compression fracture of L3 lumbar vertebra with routine healing, subsequent encounter S32.030D and Drug-induced constipation K59.03 [facility] [address] [address] Jun, [facility] [address] [address] Jun, [facility] [address] [address] Apr, [facility] [address] [address] Apr, Morbid obesity E66.01 [facility] [address] [place] [address] 12 Apr, 2018 Morbid obesity E66.01 ; Hypertriglycerid emia E78.1 ; Gastroesophageal reflux disease, esophagitis presence not specified K21.9 and Joint pain M25.50 [facility] [id number] [place] [address] Feb, [facility] [id number] [place] [address] Feb, [facility] [address] [facility] [id number] [address] [address] Jan, Acute bacterial conjunctivit is H10.30 [facility] [address] [address] 08 Dec, 2017 [facility] [address] [address] 04 Dec, 2017 [facility] [address] [address] 17 Nov, 2017 [facility] [address] [address] 07 Nov, 2017 Obstructive sleep apnea G47.33 ; Morbid obesity E66.01 and Gastroesophageal reflux disease, esophagitis presence not specified K21.9 [facility] [address] [facility] [place], [place] [id number] 06 Nov, 2017 Encounter for examination of eyes and vi ray without abnormal findings Z01.00 [facility] [address] [place] [address] 31 Oct, 2017 Thyroid nodule E04.1 and Screening for b reast cancer Z12.31 [facility] [address] [place] [address] 23 Oct, 2017 History of DVT (deep vein thrombosis) Z8 6.718 ; Thyroid nodule E04.1 and Gastroesophageal reflux disease, esophagitis presence not specified K21.9 [facility] [address] [address] Oct, [facility] [address] [address] Sep, [place] [address] [address] Aug, [place] [address] [address] Aug, [place] [address] [address] Aug, Acute pain of left shoulder M25.512 and Thyroid nodule E04.1 [place] [address] [address] July, Superior glenoid labrum lesion of left mehdi roy, subsequent encounter S43.432D [place] [address] [address] Jun, History of DVT (deep vein thrombosis) Z8 6.718 [place] [address] [address] Jun, History of DVT (deep vein thrombosis) Z8 6.718 [place] [address] [address] Jun, Impingement syndrome, shoulder, left M75 .42 [place] [address] [address] May, Subacromial bursitis of left shoulder saurabh int M75.52 [place] [address] [address] May, [address] [address] May, Hypertriglyceridemia E78.1 ; 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 and Excessive daytime sleepiness G47.19 [place] [address] [address] May, History of DVT (deep vein thrombosis) Z8 6.718 ; Generalized anxiety disorder F41.1 ; Hypertriglyceridemia E78.1 ; 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 ; Subacromial bursitis of left shoulder joint M75.52 and Excessive daytime sleepiness G47.19 [place] [address] [address] May, [place] [address] [address] May, 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 [place] [address] [address] Apr, retirement (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 Z79.01 [place] [address] [address] Apr, 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 [place] [address] [address] 20 Apr, 2017 retirement (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 Z79.01 [place] [address] [address] Apr, [place] [address] [address] 16 Apr, 2017 retirement (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 Z79.01 [place] [address] [address] 13 Apr, 2017 retirement (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 Z79.01 [place] [address] [address] Apr, retirement (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 Z79.01 [place] [address] [address] Apr, 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 [place] [address] [address] 07 Apr, 2017 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 [place] [address] [address] Apr, retirement (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 Z79.01 [facility] [address] [address] Mar, 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 [facility] [address] [address] Mar, [facility] [address] [address] Mar, retirement (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 Z79.01 [facility] [address] [id number] Jan, Dental examination Z01.20 [facility] [address] [id number] Jan, [facility] [address] [address] Jan, retirement (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 Z79.01 [facility] [address] [address] Jan, History of DVT (deep vein thrombosis) Z8 6.718 [place] [address] [address] Jan, Generalized anxiety disorder F41.1 and P eripheral edema R60.9 [facility] [address] [address] Nov, History of DVT (deep vein thrombosis) Z8 6.718 [facility] [address] [address] Nov, 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 [facility] [address] [facility] [id number] [address] [place] [address] Nov, Acute non-recurrent maxillar y sinusitis J01.00 [facility] [address] [address] Oct, retirement (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 Z79.01 [place] [address] [address] Oct, Personal history of venous thrombosis an d embolism Z86.718 [place] [address] [address] Sep, [place] [address] [address] Sep, Personal history of venous thrombosis an d embolism Z86.718 [place] [address] [address] Sep, 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 [place] [address] [address] Sep, retirement (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 Z79.01 [place] [address] [address] Sep, Generalized anxiety disorder F41.1 and H istory of DVT (deep vein thrombosis) Z86.718 [place] [address] [address] Aug, History of DVT (deep vein thrombosis) Z8 6.718 ; Generalized anxiety disorder F41.1 ; retirement (current) use of anticoagulants Z79.01 ; Pelvic pain R10.2 ; Hypertriglyceridemia E78.1 ; Excessive daytime sleepiness G47.19 ; Colon cancer screening Z12.11 ; Screening for breast cancer Z12.39 ; Peripheral edema R60.9 and Gastroesophageal reflux disease, esophagitis presence not specified K21.9 [place] [address] [address] Aug, [place] [address] [address] July, [place] [address] [address] July, History of DVT (deep vein thrombosis) Z8 6.718 [place] [address] [address] Jun, Generalized anxiety disorder F41.1 [place] [address] [address] Jun, History of DVT (deep vein thrombosis) Z8 6.718 [place] [address] [address] Jun, History of DVT (deep vein thrombosis) Z8 6.718 [place] [address] [address] Jun, History of DVT (deep vein thrombosis) Z8 6.718 [place] [address] [address] Jun, History of DVT (deep vein thrombosis) Z8 6.718 [place] [address] [address] May, History of DVT (deep vein thrombosis) Z8 6.718 [place] [address] [address] May, retirement (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 Z79.01 [place] [address] [address] May, 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 [place] [address] [address] May, History of DVT (deep vein thrombosis) Z8 6.718 [facility] [address] [facility] [id number] [address] [place] [address] Apr, Bacterial conjunctivitis of left eye H10.9 and H/O motion sickness Z87.898 [facility] [address] [address] Apr, History of DVT (deep vein thrombosis) Z8 6.718 [place] [address] [address] 23 Apr, 2016 History of DVT (deep vein thrombosis) Z8 6.718 [place] [address] [address] 15 Apr, 2016 History of DVT (deep vein thrombosis) Z8 6.718 [place] [address] [address] 14 Apr, 2016 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 [place] [address] [address] Mar, [place] [address] [address] Mar, retirement (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 Z79.01 [place] [address] [address] Mar, Hypertriglyceridemia E78.1 and 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 [place] [address] [address] Feb, 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 [place] [address] [address] Feb, retirement (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 Z79.01 [place] [address] [address] Feb, retirement (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 Z79.01 [place] [address] [address] Dec, [place] [address] [address] Nov, [place] [address] [address] 13 Nov, 2015 History of DVT (deep vein thrombosis) Z8 6.718 ; Tremulousness R25.1 ; Generalized anxiety disorder F41.1 ; Peripheral edema R60.9 and Hypertriglyceridemia E78.1 [place] [address] [address] Oct, History of DVT (deep vein thrombosis) Z8 6.718 [place] [address] [address] Oct, [place] [address] [address] Sep, History of DVT (deep vein thrombosis) Z8 6.718 [place] [address] [address] Sep, 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 [place] [address] [address] July, [place] [address] [address] July, 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 [place] [address] [address] July, retirement (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 Z79.01 [place] [address] [address] Jun, retirement (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 Z79.01 [facility] [place] [address] [place] [address] Jun, Coccyx pain M53.3 ; Encounte r for therapeutic drug level monitoring Z51.81 and exterminator termite current use 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.01 [place] [address] [address] May, Abnormal mammogram R92.8 [facility] [place] [id number] [place] [address] May, [facility] [place] [id number] [place] [address] May, Acute vaginitis N76.0 and En counter for other screening for malignant neoplasm of breast Z12.39 [place] [address] [address] Apr, [place] [address] [place] [address] [address] Apr, [place] [address] [address] Apr, Peripheral edema R60.9 [place] [address] [place] [address] Apr, 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 [place] [address] [address] Apr, Peripheral edema R60.9 and exterminator termite (cu rrent) use of anticoagulants Z79.01 [place] [address] [address] Apr, 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 [place] [address] [address] Apr, [place] [address] [address] Apr, retirement (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 Z79.01 [place] [address] [address] Apr, Peripheral edema R60.9 [place] [address] [address] Mar, 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 [place] [address] [address] Mar, retirement (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 Z79.01 and Hypertriglyceridemia E78.1 [place] [address] [address] Mar, retirement (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 Z79.01 [place] [address] [address] Mar, 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 [place] [address] [address] Mar, [place] [address] [address] Mar, retirement (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 Z79.01 ; Hypertriglyceridemia E78.1 ; Personal history of venous thrombosis and embolism Z86.718 and Lump R22.9 [place] [address] [address] Mar, Personal history of venous thrombosis an d embolism Z86.718 [place] [address] [address] Mar, Personal history of venous thrombosis an d embolism Z86.718 [place] [address] [address] Mar, [place] [address] [address] Dec, Personal history of venous thrombosis an d embolism Z86.718 [place] [address] [address] Dec, Personal history of venous thrombosis an d embolism V12.51 [place] [address] [address] 28 Nov, 2014 Personal history of venous thrombosis an d embolism V12.51 [place] [address] [address] 25 Nov, 2014 Personal history of venous thrombosis an d embolism V12.51 [place] [address] [address] 17 Nov, 2014 Personal history of venous thrombosis an d embolism V12.51 [place] [address] [address] Nov, Personal history of venous thrombosis an d embolism V12.51 [facility] [address] [address] Nov, [facility] [address] [address] Oct, Dysuria 788.1 [place] [address] [address] Oct, Personal history of venous thrombosis an d embolism V12.51 [facility] [address] [address] Oct, [place] [address] [address] Oct, Personal history of venous thrombosis an d embolism V12.51 [place] [address] [address] Sep, Personal history of venous thrombosis an d embolism V12.51 [place] [address] [address] Sep, Personal history of venous thrombosis an d embolism V12.51 [place] [address] [address] Aug, Personal history of venous thrombosis an d embolism V12.51 [place] [address] [address] Aug, Personal history of venous thrombosis an d embolism V12.51 [place] [address] [address] Aug, Personal history of venous thrombosis an d embolism V12.51 [place] [address] [address] July, Generalized anxiety disorder 300.02 ; Ab dominal pain, left lower quadrant 789.04 and Personal history of venous thrombosis and embolism V12.51 [place] [address] [address] Jun, [facility] [address] [id number] [place] [address] Jun, [facility] [address] [id number] [place] [address] May, [facility] [address] [id number] [place] [address] May, [facility] [address] [id number] [place] [address] May, [facility] [address] [id number] [place] [address] May, [facility] [address] [id number] [place] [address] May, [facility] [address] [id number] [place] [address] May, [facility] [address] [id number] [place] [address] May, [facility] [address] [id number] [place] [address] May, [facility] [address] [id number] [place] [address] Apr, [facility] [address] [id number] [place] [address] Apr, [facility] [address] [id number] [place] [address] Apr, [facility] [address] [id number] [place] [address] Apr, [facility] [address] [id number] [place] [address] Apr, [facility] [address] [id number] [place] [address] Mar, [facility] [address] [id number] [place] [address] Mar, [facility] [address] [id number] [place] [address] Mar, [facility] [address] [id number] [place] [address] Mar, [facility] [address] [id number] [place] [address] Mar, [facility] [address] [id number] [place] [address] Mar, [facility] [address] [id number] [place] [address] Feb, [facility] [address] [id number] [place] [address] Feb, [facility] [address] [id number] [place] [address] Feb, [facility] [address] [id number] [place] [address] Feb, [facility] [address] [id number] [place] [address] Feb, [facility] [address] [id number] [place] [address] Feb, [facility] [address] [id number] [place] [address] Feb, [facility] [address] [id number] [place] [address] Feb, [facility] [address] [id number] [place] [address] Feb, [facility] [address] [id number] [place] [address] Feb, [facility] [address] [id number] [place] [address] Jan, [facility] [address] [id number] [place] [address] Jan, [facility] [address] [id number] [place] [address] Jan, [facility] [address] [id number] [place] [address] Jan, [facility] [address] [facility] [id number] [place] [address] Jan, [facility] [address] [id number] [place] [address] Jan, [facility] [address] [id number] [place] [address] Jan, [facility] [address] [id number] [place] [address] Jan, [facility] [address] [id number] [place] [address] Jan, [facility] [address] [id number] [place] [address] Jan, [facility] [address] [id number] [place] [address] Dec, [facility] [address] [id number] [place] [address] Dec, [facility] [address] [id number] [place] [address] Dec, [facility] [address] [id number] [place] [address] Dec, [facility] [address] [id number] [place] [address] Dec, [facility] [address] [id number] [place] [address] Dec, [facility] [address] [id number] [place] [address] Dec, [facility] [address] [id number] [place] [address] Dec, [facility] [address] [id number] [place] [address] Dec, [facility] [address] [id number] [place] [address] Dec, [facility] [address] [id number] [place] [address] Dec, 2013 [facility] [address] [id number] [place] [address] Dec, [facility] [address] [id number] [place] [address] Dec, 2013 [facility] [address] [id number] [place] [address] Dec, [facility] [address] [facility] [id number] [place] [address] Dec, [facility] [address] [facility] [id number] [place] [address] 30 Nov, 2013 [facility] [address] [facility] [id number] [place] [address] 30 Nov, 2013 [facility] [address] [facility] [id number] [place] [address] 26 Nov, 2013 [facility] [address] [facility] [id number] [place] [address] 26 Nov, 2013 [facility] [address] [facility] [id number] [place] [address] 24 Nov, 2013 [facility] [address] [facility] [id number] [place] [address] 24 Sep, 2013 [facility] [address] [facility] [id number] [place] [address] 23 Nov, 2013 [facility] [address] [id number] [place] [address] 23 Sep, 2013 [facility] [address] [facility] [id number] [place] [address] 18 Sep, 2013 [facility] [address] [facility] [id number] [place] [address] 18 Sep, 2013 [facility] [address] [facility] [id number] [place] [address] 17 Sep, 2013 [facility] [address] [facility] [id number] [place] [address] 17 Nov, 2013 [facility] [address] [facility] [id number] [facility] [place] [address] 11 Nov, 2013 [facility] [address] [facility] [id number] [facility] [place] [address] 11 Nov, 2013 [facility] [address] [facility] [id number] [facility] [place] [address] 10 Nov, 2013 [facility] [address] [facility] [id number] [facility] [place] [address] 10 Nov, 2013 [facility] [address] [facility] [id number] [facility] [place] [address] 08 Nov, 2013 [facility] [address] [facility] [id number] [place] [address] 08 Nov, 2013 [facility] [address] [facility] [id number] [place] [address] Sep, 2013 [facility] [address] [facility] [id number] [place] [address] Sep, 2013 [facility] [address] [facility] [id number] [place] [address] Sep, 2013 [facility] [address] [facility] [id number] [place] [address] Sep, 2013 [facility] [address] [id number] [place] [address] Sep, 2013 [facility] [address] [id number] [place] [address] Sep, 2013 [facility] [address] [facility] [id number] [place] [address] Aug, [facility] [address] [facility] [id number] [place] [address] Aug, [facility] [address] [facility] [id number] [place] [address] Aug, [facility] [address] [facility] [id number] [place] [address] Aug, [facility] [address] [facility] [id number] [place] [address] 24 Aug, 2013 [facility] [address] [id number] [place] [address] Aug, [facility] [address] [facility] [id number] [place] [address] Aug, [facility] [address] [facility] [id number] [place] [address] Aug, [facility] [address] [facility] [id number] [place] [address] Aug, [facility] [address] [facility] [id number] [place] [address] Aug, [facility] [address] [facility] [id number] [place] [address] Aug, [facility] [address] [facility] [id number] [place] [address] July, [facility] [address] [facility] [id number] [place] [address] July, [facility] [address] [facility] [id number] [place] [address] Jun, [facility] [address] [facility] [id number] [place] [address] Jun, [facility] [address] [facility] [id number] [place] [address] Jun, [facility] [address] [id number] [place] [address] Jun, [facility] [address] [facility] [id number] [place] [address] Jun, [facility] [address] [facility] [id number] [place] [address] Jun, [facility] [address] [id number] [place] [address] 15 Jun, 2013 [facility] [address] [id number] [place] [address] 15 Jun, 2013 [facility] [address] [facility] [id number] [place] [address] 11 Jun, 2013 [facility] [address] [facility] [id number] [place] [address] 11 Jun, 2013 [facility] [address] [id number] [place] [address] 10 Jun, 2013 [facility] [address] [id number] [place] [address] Jun, [facility] [address] [facility] [id number] [place] [address] May, [facility] [address] [id number] [place] [address] May, [facility] [address] [id number] [place] [address] May, [facility] [address] [id number] [place] [address] May, [facility] [address] [id number] [place] [address] May, [facility] [address] [id number] [place] [address] May, [facility] [address] [id number] [place] [address] May, [facility] [address] [facility] [id number] [place] [address] May, [facility] [address] [id number] [place] [address] May, [facility] [address] [id number] [place] [address] May, [facility] [address] [id number] [place] [address] May, [facility] [address] [id number] [place] [address] May, [facility] [address] [id number] [place] [address] Apr, [facility] [address] [id number] [place] [address] Apr, [facility] [address] [id number] [place] [address] Apr, [facility] [address] [id number] [place] [address] Apr, [facility] [address] [id number] [place] [address] Apr, [facility] [address] [facility] [id number] [place] [address] Apr, [facility] [address] [id number] [place] [address] Apr, [facility] [address] [id number] [place] [address] Apr, [facility] [address] [id number] [place] [address] Apr, [facility] [address] [id number] [place] [address] Apr, [facility] [address] [id number] [place] [address] Apr, [facility] [address] [id number] [place] [address] Apr, [facility] [address] [id number] [place] [address] Apr, [facility] [address] [facility] [id number] [place] [address] Apr, [facility] [address] [id number] [place] [address] Apr, [facility] [address] [id number] [place] [address] Apr, [facility] [address] [id number] [place] [address] Apr, [facility] [address] [id number] [place] [address] Jan, [facility] [address] [id number] [place] [address] Jan, [facility] [address] [facility] [id number] [place] [address] 08 Jan, 2013 [facility] [address] [id number] [place] [address] Jan, [facility] [address] [id number] [place] [address] Jan, [facility] [address] [id number] [place] [address] Jan, [facility] [address] [facility] [id number] [place] [address] Jan, [facility] [address] [id number] [place] [address] Dec, [facility] [address] [id number] [place] [address] Dec, [facility] [address] [id number] [place] [address] Dec, [facility] [address] [id number] [place] [address] Nov, 2012 [facility] [address] [id number] [place] [address] 10 Nov, 2012 [facility] [address] [id number] [place] [address] 05 Nov, 2012 [facility] [address] [id number] [place] [address] 04 Nov, 2012 [facility] [address] [id number] [place] [address] Oct, [facility] [address] [id number] [place] [address] Oct, [facility] [address] [id number] [place] [address] Oct, [facility] [address] [id number] [facility] [place] [address] Oct, [facility] [address] [id number] [place] [address] Oct, [facility] [address] [id number] [place] [address] Sep, [facility] [address] [id number] [place] [address] Sep, [facility] [address] [id number] [place] [address] Sep, [facility] [address] [id number] [place] [address] Sep, [facility] [address] [id number] [place] [address] Sep, [facility] [address] [id number] [place] [address] Sep, [facility] [address] [id number] [place] [address] Sep, [facility] [address] [id number] [place] [address] Aug, [facility] [address] [id number] [place] [address] Aug, [facility] [address] [id number] [place] [address] July, [facility] [address] [id number] [place] [address] Jun, [facility] [address] [id number] [place] [address] Jun, [facility] [address] [id number] [place] [address] Jun, [facility] [address] [id number] [place] [address] Apr, [facility] [address] [id number] [place] [address] Apr, [facility] [address] [facility] [id number] [place] [address] Apr, [facility] [address] [facility] [id number] [place] [address] Mar, [facility] [address] [id number] [place] [address] Mar, [facility] [address] [id number] [place] [address] Mar, [facility] [address] [facility] [id number] [place] [address] Mar, [facility] [address] [facility] [id number] [place] [address] Mar, [facility] [address] [facility] [id number] [place] [address] 14 Feb, 2012 [facility] [address] [id number] [place] [address] 14 Feb, 2012 [facility] [address] [facility] [id number] [place] [address] Jan, [facility] [address] [facility] [id number] [place] [address] Jan, [facility] [address] [facility] [id number] [place] [address] 13 Jan, 2012 [facility] [address] [id number] [place] [address] 13 Jan, 2012 [facility] [address] [id number] [place] [address] Jan, [facility] [address] [id number] [place] [address] 07 Jan, 2012 [facility] [address] [facility] [id number] [place] [address] 06 Jan, 2012 [facility] [address] [facility] [id number] [place] [address] Dec, [facility] [address] [facility] [id number] [place] [address] Dec, [facility] [address] [facility] [id number] [place] [address] Dec, [facility] [address] [facility] [id number] [place] [address] Dec, [facility] [address] [facility] [id number] [place] [address] Dec, [facility] [address] [facility] [id number] [place] [address] Dec, [facility] [address] [id number] [place] [address] Dec, [facility] [address] [id number] [place] [address] Dec, [facility] [address] [facility] [id number] [place] [address] Dec, [facility] [address] [facility] [id number] [place] [address] Dec, [facility] [address] [id number] [place] [address] Oct, [facility] [address] [id number] [place] [address] Oct, [facility] [address] [id number] [place] [address] Aug, [facility] [address] [id number] [place] [address] Aug, [facility] [address] [id number] [place] [address] July, [facility] [address] [id number] [place] [address] Jun, [facility] [address] [id number] [place] [address] Jun, [facility] [address] [id number] [place] [address] May, [facility] [address] [id number] [place] [address] Apr, [facility] [address] [facility] [id number] [place] [address] Apr, [facility] [address] [id number] [place] [address] Mar, [facility] [address] [id number] [place] [address] Mar, [facility] [address] [id number] [place] [address] Feb, [facility] [address] [id number] [place] [address] 15 Feb, 2011 [facility] [address] [id number] [place] [address] Feb, [facility] [address] [id number] [place] [address] Feb, [facility] [address] [id number] [place] [address] Jan, [facility] [address] [id number] [place] [address] 17 Dec, 2010 [facility] [address] [id number] [place] [address] 08 Feb, 2010 [facility] [address] [id number] [place] [address] Feb, [facility] [address] [id number] [place] [address] Feb, [facility] [address] [id number] [place] [address] Feb, [facility] [address] [id number] [place] [address] 15 Dec, 2009 [facility] [address] [id number] [place] [address] Dec, [facility] [address] [facility] [id number] [place] [address] Oct, [facility] [address] [facility] [id number] [place] [address] Jun, [facility] [address] [facility] [id number] [place] [address] Feb, [facility] [address] [facility] [id number] [place] [address] Feb, [facility] [address] [facility] [id number] [place] [address] Feb, [facility] [address] [facility] [id number] [place] [address] Dec, IMMUNIZATIONS No Known Immunizations SOCIAL HISTORY Never Assessed REASON FOR VISIT PLAN OF CARE VITAL SIGNS Height 64 in 2013-06-15 Weight 205 lbs 2013-06-15 Temperature 97.5 degrees Fahrenheit 2013-06-15 Heart Rate 80 bpm 2013-06-15 Respiratory Rate 18 2013-06-15 Blood pressure systolic 98 mmHg 2013-06-15 Blood pressure diastolic 60 mmHg 2013-06-15 MEDICATIONS Unknown Medications RESULTS No Results PROCEDURES Procedure Date Ordered Result Body Site THER/PROPH/DIAG INJ, SC/IM June 15, 2013 IM 5OOMG ROCEPHIN June 15, 2013 INSTRUCTIONS MEDICATIONS ADMINISTERED No Known Medications MEDICAL (GENERAL) HISTORY Type Description Date Medical History obesity Medical History 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
--- OUTSIDE RECORDS SUMMARY | 2019-10-19 12:49 | XMS REPORT ---
Author Author Mary Jane Mcginnis Doctor Organization 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 Name Role Phone Migration, Doctor Unavailable Unavailable PROBLEMS Type Condition ICD9-CM Code DTG37-CG Code Onset Dates Condition S tatus SNOMED Code Problem Thyroid follicular adenoma D34 Act phylicia 861910433 Problem History of DVT (deep vein thrombosis) Z86.718 Active 598686568 Problem Factor V Leiden D68.51 Active 3070 30376 Problem jail (current) use of anticoagulants Z79.01 Active 915939132 Problem Hypertriglyceridemia E78.1 Active 733328513 Problem 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 Active 498268585 Problem Pelvic pain R10.2 Active 97233229 Problem Peripheral edema R60.9 Active 271 266091 Problem Moderate episode of recurrent major depressive disorder F33.1 Active 839353616 Problem Presence of IVC filter Z95.828 Active 655796159 Problem Vitamin D deficiency E55.9 Active 63532757 Problem Generalized anxiety disorder F41.1 A ctive 427751809 Problem Excessive daytime sleepiness G47.19 A ctive 184628491929 Problem Gastroesophageal reflux disease, esophagitis pre sence not specified K21.9 Active 691228168 Problem Thyroid nodule E04.1 Active 36137 5005 Problem Morbid obesity E66.01 Active 24806 6002 ALLERGIES No Information ENCOUNTERS Encounter Location Date Diagnosis [place] [id number] [place] [address] 12 Apr, 2019 Back pain with history of spinal surgery M54.9 [place] [address] [address] Apr, [place] [address] [address] 10 Apr, 2019 Gastroenteritis K52.9 ; Back pain with h istory of spinal surgery M54.9 ; Dermatofibroma of lower leg, unspecified laterality D23.70 and Morbid obesity E66.01 [place] [address] [address] Mar, [place] [address] [address] Jan, [place] [address] [address] Jan, [place] [address] [address] Dec, Encounter for weight management Z76.89 [place] [address] [address] Dec, Encounter for weight management Z76.89 a nd Screening mammogram, encounter for Z12.31 [place] [address] [address] Nov, Encounter for weight management Z76.89 [place] [address] [address] Nov, Thyroid nodule E04.1 [place] [address] [address] Nov, Thyroid nodule E04.1 [place] [address] [address] Nov, Thyroid nodule E04.1 [place] [address] [address] Oct, Syncope, unspecified syncope type R55 an d Encounter for weight management Z76.89 [place] [address] [address] Oct, Morbid obesity E66.01 [place] [address] [address] Oct, Hypertriglyceridemia E78.1 [place] [address] [address] Oct, [place] [address] [address] Oct, Hypertriglyceridemia E78.1 [facility] [address] [address] Sep, Hypertriglyceridemia E78.1 and Vitamin D deficiency E55.9 [facility] [address] [address] Sep, [facility] [address] [address] Sep, Morbid obesity E66.01 ; Moderate episode of recurrent major depressive disorder F33.1 ; Hypertriglyceridemia E78.1 and Vitamin D deficiency E55.9 [facility] [address] [address] Aug, [facility] [address] [address] July, [facility] [address] [address] July, [facility] [address] [address] Jun, [facility] [address] [address] Jun, [facility] [address] [address] Jun, Closed compression fracture of L3 lumbar vertebra with routine healing, subsequent encounter S32.030D and Drug-induced constipation K59.03 [facility] [address] [address] Jun, [facility] [address] [address] Jun, [facility] [address] [address] Apr, [facility] [address] [address] Apr, Morbid obesity E66.01 [facility] [address] [place] [address] 12 Apr, 2018 Morbid obesity E66.01 ; Hypertriglycerid emia E78.1 ; Gastroesophageal reflux disease, esophagitis presence not specified K21.9 and Joint pain M25.50 [facility] [id number] [place] [address] Feb, [facility] [id number] [place] [address] Feb, [facility] [address] [facility] [id number] [place] [address] Jan, Acute bacterial conjunctivit is H10.30 [facility] [address] [address] 08 Dec, 2017 [facility] [address] [address] 04 Dec, 2017 [facility] [address] [address] 17 Nov, 2017 [facility] [address] [address] 07 Nov, 2017 Obstructive sleep apnea G47.33 ; Morbid obesity E66.01 and Gastroesophageal reflux disease, esophagitis presence not specified K21.9 [facility] [address] [id number] [place] [id number] 06 Nov, 2017 Encounter for examination of eyes and vi ray without abnormal findings Z01.00 [facility] [address] [place] [address] 31 Oct, 2017 Thyroid nodule E04.1 and Screening for b reast cancer Z12.31 [facility] [address] [place] [address] 23 Oct, 2017 History of DVT (deep vein thrombosis) Z8 6.718 ; Thyroid nodule E04.1 and Gastroesophageal reflux disease, esophagitis presence not specified K21.9 [facility] [address] [address] Oct, [facility] [address] [address] Sep, [place] [address] [address] Aug, [place] [address] [address] Aug, [place] [address] [address] Aug, Acute pain of left shoulder M25.512 and Thyroid nodule E04.1 [place] [address] [address] July, Superior glenoid labrum lesion of left mehdi roy, subsequent encounter S43.432D [place] [address] [address] Jun, History of DVT (deep vein thrombosis) Z8 6.718 [place] [address] [address] Jun, History of DVT (deep vein thrombosis) Z8 6.718 [place] [address] [address] Jun, Impingement syndrome, shoulder, left M75 .42 [place] [address] [address] May, Subacromial bursitis of left shoulder saurabh int M75.52 [place] [address] [address] May, [address] [address] May, Hypertriglyceridemia E78.1 ; 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 and Excessive daytime sleepiness G47.19 [place] [address] [address] May, History of DVT (deep vein thrombosis) Z8 6.718 ; Generalized anxiety disorder F41.1 ; Hypertriglyceridemia E78.1 ; 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 Z79.01 ; Subacromial bursitis of left shoulder joint M75.52 and Excessive daytime sleepiness G47.19 [place] [address] [address] May, [place] [address] [address] May, 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 (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 Z79.01 [place] [address] [address] Apr, jail (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 Z79.01 [place] [address] [address] Apr, 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 (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 Z79.01 [place] [address] [address] 20 Apr, 2017 jail (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 Z79.01 [place] [address] [address] Apr, [place] [address] [address] 16 Apr, 2017 jail (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 Z79.01 [place] [address] [address] 13 Apr, 2017 jail (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 Z79.01 [place] [address] [address] Apr, jail (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 Z79.01 [place] [address] [address] Apr, 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 (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 Z79.01 [place] [address] [address] 07 Apr, 2017 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 [address] [id number] Jan, Dental examination Z01.20 [facility] [address] [id number] Jan, [facility] [address] [address] Jan, jail (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 Z79.01 [facility] [address] [address] Jan, History of DVT (deep vein thrombosis) Z8 6.718 [place] [address] [address] Jan, Generalized anxiety disorder F41.1 and P eripheral edema R60.9 [facility] [address] [address] Nov, History of DVT (deep vein thrombosis) Z8 6.718 [facility] [address] [address] Nov, 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 (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 Z79.01 [facility] [address] [facility] [id number] [address] [place] [address] Nov, Acute non-recurrent maxillar y sinusitis J01.00 [facility] [address] [address] Oct, jail (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 Z79.01 [place] [address] [address] Oct, Personal history of venous thrombosis an d embolism Z86.718 [place] [address] [address] Sep, [place] [address] [address] Sep, Personal history of venous thrombosis an d embolism Z86.718 [place] [address] [address] Sep, 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 (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 Z79.01 [place] [address] [address] Sep, jail (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 Z79.01 [place] [address] [address] Sep, Generalized anxiety disorder F41.1 and H istory of DVT (deep vein thrombosis) Z86.718 [place] [address] [address] Aug, History of DVT (deep vein thrombosis) Z8 6.718 ; Generalized anxiety disorder F41.1 ; jail (current) use of anticoagulants Z79.01 ; Pelvic pain R10.2 ; Hypertriglyceridemia E78.1 ; Excessive daytime sleepiness G47.19 ; Colon cancer screening Z12.11 ; Screening for breast cancer Z12.39 ; Peripheral edema R60.9 and Gastroesophageal reflux disease, esophagitis presence not specified K21.9 [place] [address] [address] Aug, [place] [address] [address] July, [place] [address] [address] July, History of DVT (deep vein thrombosis) Z8 6.718 [place] [address] [address] Jun, Generalized anxiety disorder F41.1 [place] [address] [address] Jun, History of DVT (deep vein thrombosis) Z8 6.718 [place] [address] [address] Jun, History of DVT (deep vein thrombosis) Z8 6.718 [place] [address] [address] Jun, History of DVT (deep vein thrombosis) Z8 6.718 [place] [address] [address] Jun, History of DVT (deep vein thrombosis) Z8 6.718 [place] [address] [address] May, History of DVT (deep vein thrombosis) Z8 6.718 [place] [address] [address] May, jail (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 Z79.01 [place] [address] [address] May, 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 (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 Z79.01 [place] [address] [address] May, History of DVT (deep vein thrombosis) Z8 6.718 [facility] [address] [facility] [id number] [address] [place] [address] Apr, Bacterial conjunctivitis of left eye H10.9 and H/O motion sickness Z87.898 [facility] [address] [address] Apr, History of DVT (deep vein thrombosis) Z8 6.718 [place] [address] [address] 23 Apr, 2016 History of DVT (deep vein thrombosis) Z8 6.718 [place] [address] [address] 15 Apr, 2016 History of DVT (deep vein thrombosis) Z8 6.718 [place] [address] [address] 14 Apr, 2016 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 (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 Z79.01 [place] [address] [address] Mar, [place] [address] [address] Mar, jail (current) use of anticoagulant s Z79.01 [place] [address] [address] Mar, Hypertriglyceridemia E78.1 and 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 Z79.01 [place] [address] [address] Feb, 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 (current) use of anticoagulant s Z79.01 [place] [address] [address] Feb, jail (current) use of anticoagulant s Z79.01 [place] [address] [address] Feb, jail (current) use of anticoagulant s Z79.01 [place] [address] [address] Dec, [place] [address] [address] Nov, [place] [address] [address] 13 Nov, 2015 History of DVT (deep vein thrombosis) Z8 6.718 ; Tremulousness R25.1 ; Generalized anxiety disorder F41.1 ; Peripheral edema R60.9 and Hypertriglyceridemia E78.1 [place] [address] [address] Oct, History of DVT (deep vein thrombosis) Z8 6.718 [place] [address] [address] Oct, [place] [address] [address] Sep, History of DVT (deep vein thrombosis) Z8 6.718 [place] [address] [address] Sep, 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 (current) use of anticoagulant s Z79.01 [place] [address] [address] July, [place] [address] [address] July, 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 (current) use of anticoagulant s Z79.01 [place] [address] [address] July, jail (current) use of anticoagulant s Z79.01 [place] [address] [address] Jun, jail (current) use of anticoagulant s Z79.01 [facility] [place] [address] [place] [address] Jun, Coccyx pain M53.3 ; Encounte r for therapeutic drug level monitoring Z51.81 and 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 current use 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.01 [place] [address] [address] May, Abnormal mammogram R92.8 [facility] [place] [address] [place] [id number] [place] [address] May, [facility] [place] [address] [place] [address] [id number] [place] [address] May, Acute vaginitis N76.0 and En counter for other screening for malignant neoplasm of breast Z12.39 [place] [address] [address] Apr, [place] [address] [place] [address] [address] Apr, [place] [address] [address] Apr, Peripheral edema R60.9 [place] [address] [place] [address] [address] Apr, 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 (current) use of anticoagulant s Z79.01 [place] [address] [address] Apr, Peripheral edema R60.9 and 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 (cu rrent) use of anticoagulants Z79.01 [place] [address] [address] Apr, 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 (current) use of anticoagulant s Z79.01 [place] [address] [address] Apr, [place] [address] [address] Apr, jail (current) use of anticoagulant s Z79.01 [place] [address] [address] Apr, Peripheral edema R60.9 [place] [address] [address] Mar, 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 (current) use of anticoagulant s Z79.01 [place] [address] [address] Mar, jail (current) use of anticoagulant s Z79.01 and Hypertriglyceridemia E78.1 [place] [address] [address] Mar, jail (current) use of anticoagulant s Z79.01 [place] [address] [address] Mar, 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 (current) use of anticoagulant s Z79.01 [place] [address] [address] Mar, [place] [address] [address] Mar, jail (current) use of anticoagulant s Z79.01 ; Hypertriglyceridemia E78.1 ; Personal history of venous thrombosis and embolism Z86.718 and Lump R22.9 [place] [address] [address] Mar, Personal history of venous thrombosis an d embolism Z86.718 [place] [address] [address] Mar, Personal history of venous thrombosis an d embolism Z86.718 [place] [address] [address] Mar, [place] [address] [address] Dec, Personal history of venous thrombosis an d embolism Z86.718 [place] [address] [address] Dec, Personal history of venous thrombosis an d embolism V12.51 [place] [address] [address] 28 Nov, 2014 Personal history of venous thrombosis an d embolism V12.51 [place] [address] [address] 25 Nov, 2014 Personal history of venous thrombosis an d embolism V12.51 [place] [address] [address] 17 Nov, 2014 Personal history of venous thrombosis an d embolism V12.51 [place] [address] [address] Nov, Personal history of venous thrombosis an d embolism V12.51 [facility] [address] [address] Nov, [facility] [address] [address] Oct, Dysuria 788.1 [place] [address] [address] Oct, Personal history of venous thrombosis an d embolism V12.51 [facility] [address] [address] Oct, [place] [address] [address] Oct, Personal history of venous thrombosis an d embolism V12.51 [place] [address] [address] Sep, Personal history of venous thrombosis an d embolism V12.51 [place] [address] [address] Sep, Personal history of venous thrombosis an d embolism V12.51 [place] [address] [address] Aug, Personal history of venous thrombosis an d embolism V12.51 [place] [address] [address] Aug, Personal history of venous thrombosis an d embolism V12.51 [place] [address] [address] Aug, Personal history of venous thrombosis an d embolism V12.51 [place] [address] [address] July, Generalized anxiety disorder 300.02 ; Ab dominal pain, left lower quadrant 789.04 and Personal history of venous thrombosis and embolism V12.51 [place] [address] [address] Jun, [facility] [address] [id number] [place] [address] Jun, [facility] [address] [id number] [place] [address] May, [facility] [address] [id number] [place] [address] May, [facility] [address] [id number] [place] [address] May, [facility] [address] [id number] [place] [address] May, [facility] [address] [id number] [place] [address] May, [facility] [address] [id number] [place] [address] May, [facility] [address] [id number] [place] [address] May, [facility] [address] [id number] [place] [address] May, [facility] [address] [id number] [place] [address] Apr, [facility] [address] [id number] [place] [address] Apr, [facility] [address] [id number] [place] [address] Apr, [facility] [address] [id number] [place] [address] Apr, [facility] [address] [id number] [place] [address] Apr, [facility] [address] [id number] [place] [address] Mar, [facility] [address] [id number] [place] [address] Mar, [facility] [address] [id number] [place] [address] Mar, [facility] [address] [id number] [place] [address] Mar, [facility] [address] [id number] [place] [address] Mar, [facility] [address] [id number] [place] [address] Mar, [facility] [address] [id number] [place] [address] Feb, [facility] [address] [id number] [place] [address] Feb, [facility] [address] [id number] [place] [address] Feb, [facility] [address] [id number] [place] [address] Feb, [facility] [address] [id number] [place] [address] Feb, [facility] [address] [id number] [place] [address] Feb, [facility] [address] [id number] [place] [address] Feb, [facility] [address] [id number] [place] [address] Feb, [facility] [address] [id number] [place] [address] Feb, [facility] [address] [id number] [place] [address] Feb, [facility] [address] [id number] [place] [address] Jan, [facility] [address] [id number] [place] [address] Jan, [facility] [address] [id number] [place] [address] Jan, [facility] [address] [id number] [place] [address] Jan, [facility] [address] [facility] [id number] [place] [address] Jan, [facility] [address] [id number] [place] [address] Jan, [facility] [address] [id number] [place] [address] Jan, [facility] [address] [id number] [place] [address] Jan, [facility] [address] [id number] [place] [address] Jan, [facility] [address] [id number] [place] [address] Jan, [facility] [address] [id number] [place] [address] Dec, [facility] [address] [id number] [place] [address] Dec, [facility] [address] [id number] [place] [address] Dec, [facility] [address] [id number] [place] [address] Dec, [facility] [address] [id number] [place] [address] Dec, [facility] [address] [id number] [place] [address] Dec, [facility] [address] [id number] [place] [address] Dec, [facility] [address] [id number] [place] [address] Dec, [facility] [address] [id number] [place] [address] Dec, [facility] [address] [id number] [place] [address] Dec, [facility] [address] [id number] [place] [address] Dec, 2013 [facility] [address] [id number] [place] [address] Dec, [facility] [address] [id number] [place] [address] Dec, 2013 [facility] [address] [id number] [place] [address] Dec, [facility] [address] [id number] [place] [address] Dec, [facility] [address] [id number] [place] [address] 30 Nov, 2013 [facility] [address] [id number] [place] [address] 30 Nov, 2013 [facility] [address] [id number] [place] [address] 26 Nov, 2013 [facility] [address] [id number] [place] [address] 26 Nov, 2013 [facility] [address] [id number] [place] [address] 24 Nov, 2013 [facility] [address] [id number] [place] [address] 24 Sep, 2013 [facility] [address] [id number] [place] [address] 23 Nov, 2013 [facility] [address] [id number] [place] [address] 23 Sep, 2013 [facility] [address] [id number] [place] [address] 18 Sep, 2013 [facility] [address] [id number] [place] [address] 18 Sep, 2013 [facility] [address] [id number] [place] [address] 17 Sep, 2013 [facility] [address] [id number] [place] [address] 17 Nov, 2013 [facility] [address] [facility] [id number] [place] [address] 11 Nov, 2013 [facility] [address] [facility] [id number] [place] [address] 11 Nov, 2013 [facility] [address] [id number] [place] [address] 10 Nov, 2013 [facility] [address] [facility] [id number] [place] [address] 10 Nov, 2013 [facility] [address] [facility] [id number] [place] [address] 08 Nov, 2013 [facility] [address] [facility] [id number] [place] [address] 08 Nov, 2013 [facility] [address] [id number] [place] [address] Sep, 2013 [facility] [address] [id number] [place] [address] Sep, 2013 [facility] [address] [facility] [id number] [place] [address] Sep, 2013 [facility] [address] [id number] [place] [address] Sep, 2013 [facility] [address] [id number] [place] [address] Sep, 2013 [facility] [address] [id number] [place] [address] Sep, 2013 [facility] [address] [facility] [id number] [place] [address] Aug, [facility] [address] [id number] [place] [address] Aug, [facility] [address] [facility] [id number] [place] [address] Aug, [facility] [address] [id number] [place] [address] Aug, [facility] [address] [id number] [place] [address] 24 Aug, 2013 [facility] [address] [id number] [place] [address] Aug, [facility] [address] [facility] [id number] [place] [address] Aug, [facility] [address] [id number] [place] [address] Aug, [facility] [address] [id number] [place] [address] Aug, [facility] [address] [id number] [place] [address] Aug, [facility] [address] [id number] [place] [address] Aug, [facility] [address] [id number] [place] [address] July, [facility] [address] [id number] [place] [address] July, [facility] [address] [id number] [place] [address] Jun, [facility] [address] [id number] [place] [address] Jun, [facility] [address] [id number] [place] [address] Jun, [facility] [address] [id number] [place] [address] Jun, [facility] [address] [id number] [place] [address] Jun, [facility] [address] [id number] [place] [address] Jun, [facility] [address] [id number] [place] [address] 15 Jun, 2013 [facility] [address] [id number] [place] [address] 15 Jun, 2013 [facility] [address] [id number] [place] [address] 11 Jun, 2013 [facility] [address] [id number] [place] [address] 11 Jun, 2013 [facility] [address] [id number] [place] [address] 10 Jun, 2013 [facility] [address] [id number] [place] [address] Jun, [facility] [address] [id number] [place] [address] May, [facility] [address] [id number] [place] [address] May, [facility] [address] [id number] [place] [address] May, [facility] [address] [id number] [place] [address] May, [facility] [address] [id number] [place] [address] May, [facility] [address] [id number] [place] [address] May, [facility] [address] [id number] [place] [address] May, [facility] [address] [id number] [place] [address] May, [facility] [address] [id number] [place] [address] May, [facility] [address] [id number] [place] [address] May, [facility] [address] [id number] [place] [address] May, [facility] [address] [id number] [place] [address] May, [facility] [address] [id number] [place] [address] Apr, [facility] [address] [id number] [place] [address] Apr, [facility] [address] [id number] [place] [address] Apr, [facility] [address] [id number] [place] [address] Apr, [facility] [address] [id number] [place] [address] Apr, [facility] [address] [id number] [place] [address] Apr, [facility] [address] [id number] [place] [address] Apr, [facility] [address] [id number] [place] [address] Apr, [facility] [address] [id number] [place] [address] Apr, [facility] [address] [id number] [place] [address] Apr, [facility] [address] [id number] [place] [address] Apr, [facility] [address] [id number] [place] [address] Apr, [facility] [address] [id number] [place] [address] Apr, [facility] [address] [id number] [place] [address] Apr, [facility] [address] [id number] [place] [address] Apr, [facility] [address] [id number] [place] [address] Apr, [facility] [address] [id number] [place] [address] Apr, [facility] [address] [id number] [place] [address] Jan, [facility] [address] [id number] [place] [address] Jan, [facility] [address] [id number] [place] [address] 08 Jan, 2013 [facility] [address] [id number] [place] [address] Jan, [facility] [address] [id number] [place] [address] Jan, [facility] [address] [id number] [place] [address] Jan, [facility] [address] [id number] [place] [address] Jan, [facility] [address] [id number] [place] [address] Dec, [facility] [address] [id number] [place] [address] Dec, [facility] [address] [id number] [place] [address] Dec, [facility] [address] [id number] [place] [address] Nov, 2012 [facility] [address] [id number] [place] [address] 10 Nov, 2012 [facility] [address] [id number] [place] [address] 05 Nov, 2012 [facility] [address] [id number] [place] [address] 04 Nov, 2012 [facility] [address] [id number] [place] [address] Oct, [facility] [address] [id number] [place] [address] Oct, [facility] [address] [id number] [place] [address] Oct, [facility] [address] [id number] [place] [address] Oct, [facility] [address] [id number] [place] [address] Oct, [facility] [address] [id number] [place] [address] Sep, [facility] [address] [id number] [place] [address] Sep, [facility] [address] [id number] [place] [address] Sep, [facility] [address] [id number] [place] [address] Sep, [facility] [address] [id number] [place] [address] Sep, [facility] [address] [id number] [place] [address] Sep, [facility] [address] [id number] [place] [address] Sep, [facility] [address] [id number] [place] [address] Aug, [facility] [address] [id number] [place] [address] Aug, [facility] [address] [id number] [place] [address] July, [facility] [address] [id number] [place] [address] Jun, [facility] [address] [id number] [place] [address] Jun, [facility] [address] [id number] [place] [address] Jun, [facility] [address] [id number] [place] [address] Apr, [facility] [address] [id number] [place] [address] Apr, [facility] [address] [id number] [place] [address] Apr, [facility] [address] [id number] [place] [address] Mar, [facility] [address] [id number] [place] [address] Mar, [facility] [address] [id number] [place] [address] Mar, [facility] [address] [id number] [place] [address] Mar, [facility] [address] [id number] [place] [address] Mar, [facility] [address] [id number] [place] [address] 14 Feb, 2012 [facility] [address] [id number] [place] [address] 14 Feb, 2012 [facility] [address] [id number] [place] [address] Jan, [facility] [address] [id number] [place] [address] Jan, [facility] [address] [id number] [place] [address] 13 Jan, 2012 [facility] [address] [id number] [place] [address] 13 Jan, 2012 [facility] [address] [id number] [place] [address] Jan, [facility] [address] [id number] [place] [address] 07 Jan, 2012 [facility] [address] [id number] [place] [address] 06 Jan, 2012 [facility] [address] [id number] [place] [address] Dec, [facility] [address] [facility] [id number] [place] [address] Dec, [facility] [address] [id number] [place] [address] Dec, [facility] [address] [id number] [place] [address] Dec, [facility] [address] [id number] [place] [address] Dec, [facility] [address] [id number] [place] [address] Dec, [facility] [address] [id number] [place] [address] Dec, [facility] [address] [id number] [place] [address] Dec, [facility] [address] [id number] [place] [address] Dec, [facility] [address] [id number] [place] [address] Dec, [facility] [address] [id number] [place] [address] Oct, [facility] [address] [id number] [place] [address] Oct, [facility] [address] [id number] [place] [address] Aug, [facility] [address] [id number] [place] [address] Aug, [facility] [address] [id number] [place] [address] July, [facility] [address] [id number] [place] [address] Jun, [facility] [address] [id number] [place] [address] Jun, [facility] [address] [id number] [place] [address] May, [facility] [address] [id number] [place] [address] Apr, [facility] [address] [id number] [place] [address] Apr, [facility] [address] [id number] [place] [address] Mar, [facility] [address] [id number] [place] [address] Mar, [facility] [address] [id number] [place] [address] Feb, [facility] [address] [id number] [place] [address] 15 Feb, 2011 [facility] [address] [id number] [place] [address] Feb, [facility] [address] [id number] [place] [address] Feb, [facility] [address] [id number] [place] [address] Jan, [facility] [address] [id number] [place] [address] 17 Dec, 2010 [facility] [address] [id number] [place] [address] 08 Feb, 2010 [facility] [address] [id number] [place] [address] Feb, [facility] [address] [id number] [place] [address] Feb, [facility] [address] [id number] [place] [address] Feb, [facility] [address] [id number] [place] [address] 15 Dec, 2009 [facility] [address] [id number] [place] [address] Dec, [facility] [address] [id number] [place] [address] Oct, [facility] [address] [id number] [place] [address] Jun, [facility] [address] [id number] [place] [address] Feb, [facility] [address] [id number] [place] [address] Feb, [facility] [address] [id number] [place] [address] Feb, [facility] [address] [id number] [place] [address] Dec, IMMUNIZATIONS No Known Immunizations SOCIAL HISTORY Never Assessed REASON FOR VISIT PLAN OF CARE VITAL SIGNS Height 64 in 2013-05-19 Weight 206.6 lbs 2013-05-19 Temperature 98 degrees Fahrenheit 2013-05-19 Heart Rate 84 bpm 2013-05-19 Respiratory Rate 2013-05-19 Blood pressure systolic 115 mmHg 2013-05-19 Blood pressure diastolic 80 mmHg 2013-05-19 MEDICATIONS Unknown Medications RESULTS No Results PROCEDURES Procedure Date Ordered Result Body Site US EXAM, PELVIC, COMPLETE May 19, 2013 URINALYSIS, AUTO, W/O SCOPE May 19, 2013 INSTRUCTIONS MEDICATIONS ADMINISTERED No Known Medications [...]
--- OUTSIDE RECORDS SUMMARY | 2019-10-19 12:49 | XMS REPORT ---
Author Author Mary Jane Mcginnis Doctor Organization [facility] Address Unknown Phone Unavailable Care Team Providers Care Special Needs Babysitter Name Role Phone Migration, Doctor Unavailable Unavailable PROBLEMS Type Condition ICD9-CM Code EBH63-YP Code Onset Dates Condition S tatus SNOMED Code Problem Thyroid follicular adenoma D34 Act phylicia 945939812 Problem History of DVT (deep vein thrombosis) Z86.718 Active 259553035 Problem Factor V Leiden D68.51 Active 3070 22513 Problem residential (current) use of anticoagulants Z79.01 Active 574612761 Problem Hypertriglyceridemia E78.1 Active 326825931 Problem 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 Active 803783598 Problem Pelvic pain R10.2 Active 32826367 Problem Peripheral edema R60.9 Active 271 422497 Problem Moderate episode of recurrent major depressive disorder F33.1 Active 278995643 Problem Presence of IVC filter Z95.828 Active 293081790 Problem Vitamin D deficiency E55.9 Active 13597402 Problem Generalized anxiety disorder F41.1 A ctive 411534912 Problem Excessive daytime sleepiness G47.19 A ctive 578355918437 Problem Gastroesophageal reflux disease, esophagitis pre sence not specified K21.9 Active 051767455 Problem Thyroid nodule E04.1 Active 00456 5005 Problem Morbid obesity E66.01 Active 20129 6002 ALLERGIES No Information ENCOUNTERS Encounter Location Date Diagnosis [place] [id number] [place] [address] 12 Apr, 2019 Back pain with history of spinal surgery M54.9 [place] [address] [address] Apr, [place] [address] [address] 10 Apr, 2019 Gastroenteritis K52.9 ; Back pain with h istory of spinal surgery M54.9 ; Dermatofibroma of lower leg, unspecified laterality D23.70 and Morbid obesity E66.01 [place] [address] [address] Mar, [place] [address] [address] Jan, [place] [address] [address] Jan, [place] [address] [address] Dec, Encounter for weight management Z76.89 [place] [address] [address] Dec, Encounter for weight management Z76.89 a nd Screening mammogram, encounter for Z12.31 [place] [address] [address] Nov, Encounter for weight management Z76.89 [place] [address] [address] Nov, Thyroid nodule E04.1 [place] [address] [address] Nov, Thyroid nodule E04.1 [place] [address] [address] Nov, Thyroid nodule E04.1 [place] [address] [address] Oct, Syncope, unspecified syncope type R55 an d Encounter for weight management Z76.89 [place] [address] [address] Oct, Morbid obesity E66.01 [place] [address] [address] Oct, Hypertriglyceridemia E78.1 [place] [address] [address] Oct, [place] [address] [address] Oct, Hypertriglyceridemia E78.1 [facility] [address] [address] Sep, Hypertriglyceridemia E78.1 and Vitamin D deficiency E55.9 [facility] [address] [address] Sep, [facility] [address] [address] Sep, Morbid obesity E66.01 ; Moderate episode of recurrent major depressive disorder F33.1 ; Hypertriglyceridemia E78.1 and Vitamin D deficiency E55.9 [facility] [address] [address] Aug, [facility] [address] [address] July, [facility] [address] [address] July, [facility] [address] [address] Jun, [facility] [address] [address] Jun, [facility] [address] [address] Jun, Closed compression fracture of L3 lumbar vertebra with routine healing, subsequent encounter S32.030D and Drug-induced constipation K59.03 [facility] [address] [address] Jun, [facility] [address] [address] Jun, [facility] [address] [address] Apr, [facility] [address] [address] Apr, Morbid obesity E66.01 [facility] [address] [place] [address] 12 Apr, 2018 Morbid obesity E66.01 ; Hypertriglycerid emia E78.1 ; Gastroesophageal reflux disease, esophagitis presence not specified K21.9 and Joint pain M25.50 [facility] [id number] [place] [address] Feb, [facility] [id number] [place] [address] Feb, [facility] [address] [facility] [id number] [place] [address] Jan, Acute bacterial conjunctivit is H10.30 [facility] [address] [address] 08 Dec, 2017 [facility] [address] [address] 04 Dec, 2017 [facility] [address] [address] 17 Nov, 2017 [facility] [address] [address] 07 Nov, 2017 Obstructive sleep apnea G47.33 ; Morbid obesity E66.01 and Gastroesophageal reflux disease, esophagitis presence not specified K21.9 [facility] [address] [id number] [place] [id number] 06 Nov, 2017 Encounter for examination of eyes and vi ray without abnormal findings Z01.00 [facility] [address] [place] [address] 31 Oct, 2017 Thyroid nodule E04.1 and Screening for b reast cancer Z12.31 [facility] [address] [place] [address] 23 Oct, 2017 History of DVT (deep vein thrombosis) Z8 6.718 ; Thyroid nodule E04.1 and Gastroesophageal reflux disease, esophagitis presence not specified K21.9 [facility] [address] [address] Oct, [facility] [address] [address] Sep, [place] [address] [address] Aug, [place] [address] [address] Aug, [place] [address] [address] Aug, Acute pain of left shoulder M25.512 and Thyroid nodule E04.1 [place] [address] [address] July, Superior glenoid labrum lesion of left mehdi roy, subsequent encounter S43.432D [place] [address] [address] Jun, History of DVT (deep vein thrombosis) Z8 6.718 [place] [address] [address] Jun, History of DVT (deep vein thrombosis) Z8 6.718 [place] [address] [address] Jun, Impingement syndrome, shoulder, left M75 .42 [place] [address] [address] May, Subacromial bursitis of left shoulder saurabh int M75.52 [place] [address] [address] May, [address] [address] May, Hypertriglyceridemia E78.1 ; exterminator helper ( 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 Z79.01 and Excessive daytime sleepiness G47.19 [place] [address] [address] May, History of DVT (deep vein thrombosis) Z8 6.718 ; Generalized anxiety disorder F41.1 ; Hypertriglyceridemia E78.1 ; 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 ; Subacromial bursitis of left shoulder joint M75.52 and Excessive daytime sleepiness G47.19 [place] [address] [address] May, [place] [address] [address] May, 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 Z79.01 [place] [address] [address] Apr, residential (current) use of anticoagulant s Z79.01 [place] [address] [address] Apr, 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 Z79.01 [place] [address] [address] 20 Apr, 2017 residential (current) use of anticoagulant s Z79.01 [place] [address] [address] Apr, [place] [address] [address] 16 Apr, 2017 residential (current) use of anticoagulant s Z79.01 [place] [address] [address] 13 Apr, 2017 residential (current) use of anticoagulant s Z79.01 [place] [address] [address] Apr, residential (current) use of anticoagulant s Z79.01 [place] [address] [address] Apr, 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 Z79.01 [place] [address] [address] 07 Apr, 2017 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 Z79.01 [place] [address] [address] Apr, residential (current) use of anticoagulant s Z79.01 [facility] [address] [address] Mar, 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 Z79.01 [facility] [address] [address] Mar, [facility] [address] [address] Mar, residential (current) use of anticoagulant s Z79.01 [facility] [address] [id number] Jan, Dental examination Z01.20 [facility] [address] [id number] Jan, [facility] [address] [address] Jan, residential (current) use of anticoagulant s Z79.01 [facility] [address] [address] Jan, History of DVT (deep vein thrombosis) Z8 6.718 [place] [address] [address] Jan, Generalized anxiety disorder F41.1 and P eripheral edema R60.9 [facility] [address] [address] Nov, History of DVT (deep vein thrombosis) Z8 6.718 [facility] [address] [address] Nov, 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 Z79.01 [facility] [address] [facility] [id number] [address] [place] [address] Nov, Acute non-recurrent maxillar y sinusitis J01.00 [facility] [address] [address] Oct, residential (current) use of anticoagulant s Z79.01 [place] [address] [address] Oct, Personal history of venous thrombosis an d embolism Z86.718 [place] [address] [address] Sep, [place] [address] [address] Sep, Personal history of venous thrombosis an d embolism Z86.718 [place] [address] [address] Sep, 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 Z79.01 [place] [address] [address] Sep, residential (current) use of anticoagulant s Z79.01 [place] [address] [address] Sep, Generalized anxiety disorder F41.1 and H istory of DVT (deep vein thrombosis) Z86.718 [place] [address] [address] Aug, History of DVT (deep vein thrombosis) Z8 6.718 ; Generalized anxiety disorder F41.1 ; residential (current) use of anticoagulants Z79.01 ; Pelvic pain R10.2 ; Hypertriglyceridemia E78.1 ; Excessive daytime sleepiness G47.19 ; Colon cancer screening Z12.11 ; Screening for breast cancer Z12.39 ; Peripheral edema R60.9 and Gastroesophageal reflux disease, esophagitis presence not specified K21.9 [place] [address] [address] Aug, [place] [address] [address] July, [place] [address] [address] July, History of DVT (deep vein thrombosis) Z8 6.718 [place] [address] [address] Jun, Generalized anxiety disorder F41.1 [place] [address] [address] Jun, History of DVT (deep vein thrombosis) Z8 6.718 [place] [address] [address] Jun, History of DVT (deep vein thrombosis) Z8 6.718 [place] [address] [address] Jun, History of DVT (deep vein thrombosis) Z8 6.718 [place] [address] [address] Jun, History of DVT (deep vein thrombosis) Z8 6.718 [place] [address] [address] May, History of DVT (deep vein thrombosis) Z8 6.718 [place] [address] [address] May, residential (current) use of anticoagulant s Z79.01 [place] [address] [address] May, 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 Z79.01 [place] [address] [address] May, History of DVT (deep vein thrombosis) Z8 6.718 [facility] [address] [facility] [id number] [address] [place] [address] Apr, Bacterial conjunctivitis of left eye H10.9 and H/O motion sickness Z87.898 [facility] [address] [address] Apr, History of DVT (deep vein thrombosis) Z8 6.718 [place] [address] [address] 23 Apr, 2016 History of DVT (deep vein thrombosis) Z8 6.718 [place] [address] [address] 15 Apr, 2016 History of DVT (deep vein thrombosis) Z8 6.718 [place] [address] [address] 14 Apr, 2016 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 Z79.01 [place] [address] [address] Mar, [place] [address] [address] Mar, residential (current) use of anticoagulant s Z79.01 [place] [address] [address] Mar, Hypertriglyceridemia E78.1 and 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 [place] [address] [address] Feb, 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 Z79.01 [place] [address] [address] Feb, residential (current) use of anticoagulant s Z79.01 [place] [address] [address] Feb, residential (current) use of anticoagulant s Z79.01 [place] [address] [address] Dec, [place] [address] [address] Nov, [place] [address] [address] 13 Nov, 2015 History of DVT (deep vein thrombosis) Z8 6.718 ; Tremulousness R25.1 ; Generalized anxiety disorder F41.1 ; Peripheral edema R60.9 and Hypertriglyceridemia E78.1 [place] [address] [address] Oct, History of DVT (deep vein thrombosis) Z8 6.718 [place] [address] [address] Oct, [place] [address] [address] Sep, History of DVT (deep vein thrombosis) Z8 6.718 [place] [address] [address] Sep, 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 Z79.01 [place] [address] [address] July, [place] [address] [address] July, 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 Z79.01 [place] [address] [address] July, residential (current) use of anticoagulant s Z79.01 [place] [address] [address] Jun, residential (current) use of anticoagulant s Z79.01 [facility] [place] [address] [place] [address] Jun, Coccyx pain M53.3 ; Encounte r for therapeutic drug level monitoring Z51.81 and exterminator helper current use 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.01 [place] [address] [address] May, Abnormal mammogram R92.8 [facility] [place] [address] [place] [id number] [place] [address] May, [facility] [place] [address] [place] [address] [id number] [place] [address] May, Acute vaginitis N76.0 and En counter for other screening for malignant neoplasm of breast Z12.39 [place] [address] [address] Apr, [place] [address] [place] [address] [id number] Apr, [place] [address] [address] Apr, Peripheral edema R60.9 [place] [address] [place] [address] [address] Apr, 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 Z79.01 [place] [address] [address] Apr, Peripheral edema R60.9 and exterminator helper (cu rrent) use of anticoagulants Z79.01 [place] [address] [address] Apr, 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 Z79.01 [place] [address] [address] Apr, [place] [address] [address] Apr, residential (current) use of anticoagulant s Z79.01 [place] [address] [address] Apr, Peripheral edema R60.9 [place] [address] [address] Mar, 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 Z79.01 [place] [address] [address] Mar, residential (current) use of anticoagulant s Z79.01 and Hypertriglyceridemia E78.1 [place] [address] [address] Mar, residential (current) use of anticoagulant s Z79.01 [place] [address] [address] Mar, 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 Z79.01 [place] [address] [address] Mar, [place] [address] [address] Mar, residential (current) use of anticoagulant s Z79.01 ; Hypertriglyceridemia E78.1 ; Personal history of venous thrombosis and embolism Z86.718 and Lump R22.9 [place] [address] [address] Mar, Personal history of venous thrombosis an d embolism Z86.718 [place] [address] [address] Mar, Personal history of venous thrombosis an d embolism Z86.718 [place] [address] [address] Mar, [place] [address] [address] Dec, Personal history of venous thrombosis an d embolism Z86.718 [place] [address] [address] Dec, Personal history of venous thrombosis an d embolism V12.51 [place] [address] [address] 28 Nov, 2014 Personal history of venous thrombosis an d embolism V12.51 [place] [address] [address] 25 Nov, 2014 Personal history of venous thrombosis an d embolism V12.51 [place] [address] [address] 17 Nov, 2014 Personal history of venous thrombosis an d embolism V12.51 [place] [address] [address] Nov, Personal history of venous thrombosis an d embolism V12.51 [facility] [address] [address] Nov, [facility] [address] [address] Oct, Dysuria 788.1 [place] [address] [address] Oct, Personal history of venous thrombosis an d embolism V12.51 [facility] [address] [address] Oct, [place] [address] [address] Oct, Personal history of venous thrombosis an d embolism V12.51 [place] [address] [address] Sep, Personal history of venous thrombosis an d embolism V12.51 [place] [address] [address] Sep, Personal history of venous thrombosis an d embolism V12.51 [place] [address] [address] Aug, Personal history of venous thrombosis an d embolism V12.51 [place] [address] [address] Aug, Personal history of venous thrombosis an d embolism V12.51 [place] [address] [address] Aug, Personal history of venous thrombosis an d embolism V12.51 [place] [address] [address] July, Generalized anxiety disorder 300.02 ; Ab dominal pain, left lower quadrant 789.04 and Personal history of venous thrombosis and embolism V12.51 [place] [address] [address] Jun, [facility] [address] [id number] [place] [address] Jun, [facility] [address] [id number] [place] [address] May, [facility] [address] [id number] [place] [address] May, [facility] [address] [id number] [place] [address] May, [facility] [address] [id number] [place] [address] May, [facility] [address] [id number] [place] [address] May, [facility] [address] [id number] [place] [address] May, [facility] [address] [id number] [place] [address] May, [facility] [address] [id number] [place] [address] May, [facility] [address] [id number] [place] [address] Apr, [facility] [address] [id number] [place] [address] Apr, [facility] [address] [id number] [place] [address] Apr, [facility] [address] [id number] [place] [address] Apr, [facility] [address] [id number] [place] [address] Apr, [facility] [address] [id number] [place] [address] Mar, [facility] [address] [id number] [place] [address] Mar, [facility] [address] [id number] [place] [address] Mar, [facility] [address] [id number] [place] [address] Mar, [facility] [address] [id number] [place] [address] Mar, [facility] [address] [id number] [place] [address] Mar, [facility] [address] [id number] [place] [address] Feb, [facility] [address] [id number] [place] [address] Feb, [facility] [address] [id number] [place] [address] Feb, [facility] [address] [id number] [place] [address] Feb, [facility] [address] [id number] [place] [address] Feb, [facility] [address] [id number] [place] [address] Feb, [facility] [address] [id number] [place] [address] Feb, [facility] [address] [id number] [place] [address] Feb, [facility] [address] [id number] [place] [address] Feb, [facility] [address] [id number] [place] [address] Feb, [facility] [address] [id number] [place] [address] Jan, [facility] [address] [id number] [place] [address] Jan, [facility] [address] [id number] [place] [address] Jan, [facility] [address] [id number] [place] [address] Jan, [facility] [address] [facility] [id number] [place] [address] Jan, [facility] [address] [id number] [place] [address] Jan, [facility] [address] [id number] [place] [address] Jan, [facility] [address] [id number] [place] [address] Jan, [facility] [address] [id number] [place] [address] Jan, [facility] [address] [id number] [place] [address] Jan, [facility] [address] [id number] [place] [address] Dec, [facility] [address] [id number] [place] [address] Dec, [facility] [address] [id number] [place] [address] Dec, [facility] [address] [id number] [place] [address] Dec, [facility] [address] [id number] [place] [address] Dec, [facility] [address] [id number] [place] [address] Dec, [facility] [address] [id number] [place] [address] Dec, [facility] [address] [id number] [place] [address] Dec, [facility] [address] [id number] [place] [address] Dec, [facility] [address] [id number] [place] [address] Dec, [facility] [address] [id number] [place] [address] Dec, 2013 [facility] [address] [id number] [place] [address] Dec, [facility] [address] [id number] [place] [address] Dec, 2013 [facility] [address] [id number] [place] [address] Dec, [facility] [address] [id number] [place] [address] Dec, [facility] [address] [id number] [place] [address] 30 Nov, 2013 [facility] [address] [id number] [place] [address] 30 Nov, 2013 [facility] [address] [id number] [place] [address] 26 Nov, 2013 [facility] [address] [id number] [place] [address] 26 Nov, 2013 [facility] [address] [id number] [place] [address] 24 Nov, 2013 [facility] [address] [id number] [place] [address] 24 Sep, 2013 [facility] [address] [id number] [place] [address] 23 Nov, 2013 [facility] [address] [id number] [place] [address] 23 Sep, 2013 [facility] [address] [id number] [place] [address] 18 Sep, 2013 [facility] [address] [id number] [place] [address] 18 Sep, 2013 [facility] [address] [id number] [place] [address] 17 Sep, 2013 [facility] [address] [id number] [place] [address] 17 Nov, 2013 [facility] [address] [facility] [id number] [facility] [place] [address] 11 Nov, 2013 [facility] [address] [facility] [id number] [facility] [place] [address] 11 Nov, 2013 [facility] [address] [id number] [facility] [place] [address] 10 Nov, 2013 [facility] [address] [facility] [id number] [facility] [place] [address] 10 Nov, 2013 [facility] [address] [facility] [id number] [facility] [place] [address] 08 Nov, 2013 [facility] [address] [facility] [id number] [place] [address] 08 Nov, 2013 [facility] [address] [id number] [place] [address] Sep, 2013 [facility] [address] [id number] [place] [address] Sep, 2013 [facility] [address] [facility] [id number] [place] [address] Sep, 2013 [facility] [address] [id number] [place] [address] Sep, 2013 [facility] [address] [id number] [place] [address] Sep, 2013 [facility] [address] [id number] [place] [address] Sep, 2013 [facility] [address] [facility] [id number] [place] [address] Aug, [facility] [address] [id number] [place] [address] Aug, [facility] [address] [facility] [id number] [place] [address] Aug, [facility] [address] [id number] [place] [address] Aug, [facility] [address] [id number] [place] [address] 24 Aug, 2013 [facility] [address] [id number] [place] [address] Aug, [facility] [address] [facility] [id number] [place] [address] Aug, [facility] [address] [id number] [place] [address] Aug, [facility] [address] [id number] [place] [address] Aug, [facility] [address] [id number] [place] [address] Aug, [facility] [address] [id number] [place] [address] Aug, [facility] [address] [id number] [place] [address] July, [facility] [address] [id number] [place] [address] July, [facility] [address] [id number] [place] [address] Jun, [facility] [address] [id number] [place] [address] Jun, [facility] [address] [id number] [place] [address] Jun, [facility] [address] [id number] [place] [address] Jun, [facility] [address] [id number] [place] [address] Jun, [facility] [address] [id number] [place] [address] Jun, [facility] [address] [id number] [place] [address] 15 Jun, 2013 [facility] [address] [id number] [place] [address] 15 Jun, 2013 [facility] [address] [id number] [place] [address] 11 Jun, 2013 [facility] [address] [id number] [place] [address] 11 Jun, 2013 [facility] [address] [id number] [place] [address] 10 Jun, 2013 [facility] [address] [id number] [place] [address] Jun, [facility] [address] [id number] [place] [address] May, [facility] [address] [id number] [place] [address] May, [facility] [address] [id number] [place] [address] May, [facility] [address] [id number] [place] [address] May, [facility] [address] [id number] [place] [address] May, [facility] [address] [id number] [place] [address] May, [facility] [address] [id number] [place] [address] May, [facility] [address] [id number] [place] [address] May, [facility] [address] [id number] [place] [address] May, [facility] [address] [id number] [place] [address] May, [facility] [address] [id number] [place] [address] May, [facility] [address] [id number] [place] [address] May, [facility] [address] [id number] [place] [address] Apr, [facility] [address] [id number] [place] [address] Apr, [facility] [address] [id number] [place] [address] Apr, [facility] [address] [id number] [place] [address] Apr, [facility] [address] [id number] [place] [address] Apr, [facility] [address] [id number] [place] [address] Apr, [facility] [address] [id number] [place] [address] Apr, [facility] [address] [id number] [place] [address] Apr, [facility] [address] [id number] [place] [address] Apr, [facility] [address] [id number] [place] [address] Apr, [facility] [address] [id number] [place] [address] Apr, [facility] [address] [id number] [place] [address] Apr, [facility] [address] [id number] [place] [address] Apr, [facility] [address] [id number] [place] [address] Apr, [facility] [address] [id number] [place] [address] Apr, [facility] [address] [id number] [place] [address] Apr, [facility] [address] [id number] [place] [address] Apr, [facility] [address] [id number] [place] [address] Jan, [facility] [address] [id number] [place] [address] Jan, [facility] [address] [id number] [place] [address] 08 Jan, 2013 [facility] [address] [id number] [place] [address] Jan, [facility] [address] [id number] [place] [address] Jan, [facility] [address] [id number] [place] [address] Jan, [facility] [address] [id number] [place] [address] Jan, [facility] [address] [id number] [place] [address] Dec, [facility] [address] [id number] [place] [address] Dec, [facility] [address] [id number] [place] [address] Dec, [facility] [address] [id number] [place] [address] Nov, 2012 [facility] [address] [id number] [place] [address] 10 Nov, 2012 [facility] [address] [id number] [place] [address] 05 Nov, 2012 [facility] [address] [id number] [place] [address] 04 Nov, 2012 [facility] [address] [id number] [place] [address] Oct, [facility] [address] [id number] [place] [address] Oct, [facility] [address] [id number] [place] [address] Oct, [facility] [address] [id number] [facility] [place] [address] Oct, [facility] [address] [id number] [place] [address] Oct, [facility] [address] [id number] [place] [address] Sep, [facility] [address] [id number] [place] [address] Sep, [facility] [address] [id number] [place] [address] Sep, [facility] [address] [id number] [place] [address] Sep, [facility] [address] [id number] [place] [address] Sep, [facility] [address] [id number] [place] [address] Sep, [facility] [address] [id number] [place] [address] Sep, [facility] [address] [id number] [place] [address] Aug, [facility] [address] [id number] [place] [address] Aug, [facility] [address] [id number] [place] [address] July, [facility] [address] [id number] [place] [address] Jun, [facility] [address] [id number] [place] [address] Jun, [facility] [address] [id number] [place] [address] Jun, [facility] [address] [id number] [place] [address] Apr, [facility] [address] [id number] [place] [address] Apr, [facility] [address] [id number] [place] [address] Apr, [facility] [address] [id number] [place] [address] Mar, [facility] [address] [id number] [place] [address] Mar, [facility] [address] [id number] [place] [address] Mar, [facility] [address] [id number] [place] [address] Mar, [facility] [address] [id number] [place] [address] Mar, [facility] [address] [id number] [place] [address] 14 Feb, 2012 [facility] [address] [id number] [place] [address] 14 Feb, 2012 [facility] [address] [id number] [place] [address] Jan, [facility] [address] [id number] [place] [address] Jan, [facility] [address] [id number] [place] [address] 13 Jan, 2012 [facility] [address] [id number] [place] [address] 13 Jan, 2012 [facility] [address] [id number] [place] [address] Jan, [facility] [address] [id number] [place] [address] 07 Jan, 2012 [facility] [address] [id number] [place] [address] 06 Jan, 2012 [facility] [address] [id number] [place] [address] Dec, [facility] [address] [facility] [id number] [place] [address] Dec, [facility] [address] [id number] [place] [address] Dec, [facility] [address] [id number] [place] [address] Dec, [facility] [address] [id number] [place] [address] Dec, [facility] [address] [id number] [place] [address] Dec, [facility] [address] [id number] [place] [address] Dec, [facility] [address] [id number] [place] [address] Dec, [facility] [address] [id number] [place] [address] Dec, [facility] [address] [id number] [place] [address] Dec, [facility] [address] [id number] [place] [address] Oct, [facility] [address] [id number] [place] [address] Oct, [facility] [address] [id number] [place] [address] Aug, [facility] [address] [id number] [place] [address] Aug, [facility] [address] [id number] [place] [address] July, [facility] [address] [id number] [place] [address] Jun, [facility] [address] [id number] [place] [address] Jun, [facility] [address] [id number] [place] [address] May, [facility] [address] [id number] [place] [address] Apr, [facility] [address] [id number] [place] [address] Apr, [facility] [address] [id number] [place] [address] Mar, [facility] [address] [id number] [place] [address] Mar, [facility] [address] [id number] [place] [address] Feb, [facility] [address] [id number] [place] [address] 15 Feb, 2011 [facility] [address] [id number] [place] [address] Feb, [facility] [address] [id number] [place] [address] Feb, [facility] [address] [id number] [place] [address] Jan, [facility] [address] [id number] [place] [address] 17 Dec, 2010 [facility] [address] [id number] [place] [address] 08 Feb, 2010 [facility] [address] [id number] [place] [address] Feb, [facility] [address] [id number] [place] [address] Feb, [facility] [address] [id number] [place] [address] Feb, [facility] [address] [id number] [place] [address] 15 Dec, 2009 [facility] [address] [id number] [place] [address] Dec, [facility] [address] [id number] [place] [address] Oct, [facility] [address] [id number] [place] [address] Jun, [facility] [address] [id number] [place] [address] Feb, [facility] [address] [id number] [place] [address] Feb, [facility] [address] [id number] [place] [address] Feb, [facility] [address] [id number] [place] [address] Dec, IMMUNIZATIONS No Known Immunizations SOCIAL HISTORY [...] 1985, 1987 Surgical History cholecystectomy Surgical History Sunflower Filter 06/2009 Surgical History Left leg exploratory surgery r/t clot Surgical History left shoulder surgery 09/14/17 Surgical History lap band removed 12/2017 Surgical History gastic sleeve 01/2018 Surgical History Back surgery 2019 Surgical History Partial Thyroidectomy - left side 2019 Hospitalization History Ruptured Ovarian Cyst with abd bleed ing 11/2009 Hospitalization History Broken Back 06/2018
--- OUTSIDE RECORDS SUMMARY | 2019-10-19 12:50 | XMS REPORT ---
Author Author Mary Jane Donohue Organization [facility] Address [address] [place] [address] Care Team Providers Care Testing Analyst Name Role Phone JAMI Donohue Unavailable PROBLEMS Type Condition ICD9-CM Code NNP76-PK Code Onset Dates Condition S tatus SNOMED Code Problem Thyroid follicular adenoma D34 Act phylicia 829452417 Problem History of DVT (deep vein thrombosis) Z86.718 Active 055419511 Problem Factor V Leiden D68.51 Active 3070 76001 Problem senior living (current) use of anticoagulants Z79.01 Active 394221114 Problem Hypertriglyceridemia E78.1 Active 606039327 Problem 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 Active 927269533 Problem Pelvic pain R10.2 Active 71089071 Problem Peripheral edema R60.9 Active 271 741937 Problem Moderate episode of recurrent major depressive disorder F33.1 Active 134679421 Problem Presence of IVC filter Z95.828 Active 620673721 Problem Vitamin D deficiency E55.9 Active 13693174 Problem Generalized anxiety disorder F41.1 A ctive 126881488 Problem Excessive daytime sleepiness G47.19 A ctive 041508382096 Problem Gastroesophageal reflux disease, esophagitis pre sence not specified K21.9 Active 875764247 Problem Thyroid nodule E04.1 Active 91815 5005 Problem Morbid obesity E66.01 Active 81523 6002 ALLERGIES No Information ENCOUNTERS Encounter Location Date Diagnosis [facility] [id number] [place] [address] 12 Apr, 2019 Back pain with history of spinal surgery M54.9 [facility] [address] [address] 11 Apr, 2019 [facility] [id number] [place] [address] 10 Apr, 2019 Gastroenteritis K52.9 ; Back pain with h istory of spinal surgery M54.9 ; Dermatofibroma of lower leg, unspecified laterality D23.70 and Morbid obesity E66.01 [place] [address] [address] 16 Mar, 2019 [place] [address] [address] 08 Jan, 2019 [place] [address] [address] Jan, [place] [address] [address] Dec, Encounter for weight management Z76.89 [place] [address] [address] Dec, Encounter for weight management Z76.89 a nd Screening mammogram, encounter for Z12.31 [place] [address] [address] Nov, Encounter for weight management Z76.89 [place] [address] [address] Nov, Thyroid nodule E04.1 [place] [address] [address] Nov, Thyroid nodule E04.1 [place] [address] [address] Nov, Thyroid nodule E04.1 [place] [address] [address] Oct, Syncope, unspecified syncope type R55 an d Encounter for weight management Z76.89 [place] [address] [address] Oct, Morbid obesity E66.01 [place] [address] [address] Oct, Hypertriglyceridemia E78.1 [place] [address] [address] Oct, [facility] [address] [address] Oct, Hypertriglyceridemia E78.1 [facility] [address] [address] Sep, Hypertriglyceridemia E78.1 and Vitamin D deficiency E55.9 [facility] [address] [address] Sep, [facility] [address] [address] Sep, Morbid obesity E66.01 ; Moderate episode of recurrent major depressive disorder F33.1 ; Hypertriglyceridemia E78.1 and Vitamin D deficiency E55.9 [facility] [address] [address] Aug, [facility] [address] [address] July, [facility] [address] [address] July, [facility] [address] [address] Jun, [facility] [address] [address] Jun, [facility] [address] [address] Jun, Closed compression fracture of L3 lumbar vertebra with routine healing, subsequent encounter S32.030D and Drug-induced constipation K59.03 [facility] [address] [address] Jun, [facility] [address] [address] Jun, [facility] [address] [address] Apr, [facility] [address] [address] 18 Apr, 2018 Morbid obesity E66.01 [facility] [address] [address] 12 Apr, 2018 Morbid obesity E66.01 ; Hypertriglycerid emia E78.1 ; Gastroesophageal reflux disease, esophagitis presence not specified K21.9 and Joint pain M25.50 [facility] [address] [address] Feb, [facility] [address] [address] Feb, [facility] [address] [facility]NOTE 3] [id number] [address] [place] [address] Jan, Acute bacterial conjunctivit is H10.30 [place] [address] [address] 08 Dec, 2017 [place] [address] [address] 04 Dec, 2017 [facility] [address] [address] 17 Nov, 2017 [place] [address] [address] 07 Nov, 2017 Obstructive sleep apnea G47.33 ; Morbid obesity E66.01 and Gastroesophageal reflux disease, esophagitis presence not specified K21.9 [facility] [address] [facility] [place] [address] 06 Nov, 2017 Encounter for examination of eyes and vi ray without abnormal findings Z01.00 [place] [id number] [place] [address] 31 Oct, 2017 Thyroid nodule E04.1 and Screening for b reast cancer Z12.31 [place] [address] [address] 23 Oct, 2017 History of DVT (deep vein thrombosis) Z8 6.718 ; Thyroid nodule E04.1 and Gastroesophageal reflux disease, esophagitis presence not specified K21.9 [place] [address] [address] Oct, [place] [address] [address] Sep, [place] [address] [address] Aug, [place] [address] [address] Aug, [place] [address] [address] Aug, Acute pain of left shoulder M25.512 and Thyroid nodule E04.[address] [address] July, Superior glenoid labrum lesion of left mehdi roy, subsequent encounter S43.432D [address] [address] Jun, History of DVT (deep vein thrombosis) Z8 6.718 [place] [address] [address] Jun, History of DVT (deep vein thrombosis) Z8 6.718 [place] [address] [address] Jun, Impingement syndrome, shoulder, left M75 .42 [place] [address] [address] May, Subacromial bursitis of left shoulder saurabh int M75.52 [place] [address] [address] May, [address] [address] May, Hypertriglyceridemia E78.1 ; senior living ( current) use of anticoagulants Z79.01 and Excessive daytime sleepiness G47.[address] [address] May, History of DVT (deep vein thrombosis) Z8 6.718 ; Generalized anxiety disorder F41.1 ; Hypertriglyceridemia E78.1 ; 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 ; Subacromial bursitis of left shoulder joint M75.52 and Excessive daytime sleepiness G47.19 [place] [address] [address] May, [place] [address] [address] May, 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 [place] [address] [address] 23 Apr, 2017 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 [place] [address] [address] Apr, 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 [place] [address] [address] Apr, senior living (current) use of anticoagulant s Z79.01 [place] [address] [address] Apr, [place] [address] [address] Apr, senior living (current) use of anticoagulant s Z79.01 [place] [address] [address] 13 Apr, 2017 senior living (current) use of anticoagulant s Z79.01 [place] [address] [address] Apr, 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 [place] [address] [address] Apr, 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 [place] [address] [address] 07 Apr, 2017 senior living (current) use of anticoagulant s Z79.01 [facility] [address] [address] Apr, senior living (current) use of anticoagulant s Z79.01 [facility] [address] [address] Mar, senior living (current) use of anticoagulant s Z79.01 [facility] [address] [address] Mar, [facility] [address] [address] Mar, senior living (current) use of anticoagulant s Z79.01 [facility] [address] [id number] Jan, Dental examination Z01.20 [facility] [address] [id number] Jan, [facility] [address] [address] Jan, 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 [address] [address] [address] Jan, History of DVT (deep vein thrombosis) Z8 6.718 [place] [address] [address] Jan, Generalized anxiety disorder F41.1 and P eripheral edema R60.9 [facility] [address] [address] Nov, History of DVT (deep vein thrombosis) Z8 6.718 [place] [address] [address] Nov, senior living (current) use of anticoagulant s Z79.01 [facility] [address] [facility]NOTE 3] [id number] [address] [place] [address] Nov, Acute non-recurrent maxillar y sinusitis J01.00 [place] [address] [address] Oct, senior living (current) use of anticoagulant s Z79.01 [place] [address] [address] Oct, Personal history of venous thrombosis an d embolism Z86.718 [place] [address] [address] Sep, [place] [address] [address] Sep, Personal history of venous thrombosis an d embolism Z86.718 [place] [address] [address] Sep, senior living (current) use of anticoagulant s Z79.01 [address] [address] [address] Sep, 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 [place] [address] [address] Sep, Generalized anxiety disorder F41.1 and H istory of DVT (deep vein thrombosis) Z86.718 [address] [address] [address] Aug, History of DVT (deep vein thrombosis) Z8 6.718 ; Generalized anxiety disorder F41.1 ; senior living (current) use of anticoagulants Z79.01 ; Pelvic pain R10.2 ; Hypertriglyceridemia E78.1 ; Excessive daytime sleepiness G47.19 ; Colon cancer screening Z12.11 ; Screening for breast cancer Z12.39 ; Peripheral edema R60.9 and Gastroesophageal reflux disease, esophagitis presence not specified K21.9 [place] [address] [address] Aug, [place] [address] [address] July, [place] [address] [address] July, History of DVT (deep vein thrombosis) Z8 6.718 [place] [address] [address] Jun, Generalized anxiety disorder F41.1 [address] [address] [address] Jun, History of DVT (deep vein thrombosis) Z8 6.718 [address] [address] [address] Jun, History of DVT (deep vein thrombosis) Z8 6.718 [address] [address] [address] Jun, History of DVT (deep vein thrombosis) Z8 6.718 [address] [address] [address] Jun, History of DVT (deep vein thrombosis) Z8 6.718 [address] [address] [address] May, History of DVT (deep vein thrombosis) Z8 6.718 [address] [address] [address] May, senior living (current) use of anticoagulant s Z79.01 [address] [address] [address] May, senior living (current) use of anticoagulant s Z79.01 [address] [address] [address] May, History of DVT (deep vein thrombosis) Z8 6.718 [facility] [address] [facility]NOTE 3] [id number] [address] [place] [address] Apr, Bacterial conjunctivitis of left eye H10.9 and H/O motion sickness Z87.898 [address] [address] [address] Apr, History of DVT (deep vein thrombosis) Z8 6.718 [address] [address] [address] 23 Apr, 2016 History of DVT (deep vein thrombosis) Z8 6.718 [address] [address] [address] 15 Apr, 2016 History of DVT (deep vein thrombosis) Z8 6.718 [address] [address] 14 Apr, 2016 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 [address] [address] [address] Mar, [address] [address] [address] Mar, senior living (current) use of anticoagulant s Z79.01 [address] [address] [address] Mar, Hypertriglyceridemia E78.1 and 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 [address] [address] [address] Feb, senior living (current) use of anticoagulant s Z79.01 [address] [address] [address] Feb, senior living (current) use of anticoagulant s Z79.01 [address] [address] [address] Feb, 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 [address] [address] Dec, [address] [address] [address] Nov, [address] [address] [address] 13 Nov, 2015 History of DVT (deep vein thrombosis) Z8 6.718 ; Tremulousness R25.1 ; Generalized anxiety disorder F41.1 ; Peripheral edema R60.9 and Hypertriglyceridemia E78.1 [address] [address] [address] Oct, History of DVT (deep vein thrombosis) Z8 6.718 [address] [address] [address] Oct, [place] [address] [address] Sep, History of DVT (deep vein thrombosis) Z8 6.718 [address] [address] [address] Sep, senior living (current) use of anticoagulant s Z79.01 [address] [address] [address] July, [address] [address] July, senior living (current) use of anticoagulant s Z79.01 [address] [address] [address] July, senior living (current) use of anticoagulant s Z79.01 [address] [address] [address] Jun, senior living (current) use of anticoagulant s Z79.01 [facility] [address] [place] [address] Jun, Coccyx pain M53.3 ; Encounte r for therapeutic drug level monitoring Z51.81 and senior living current use 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.[address] [address] May, Abnormal mammogram R92.8 [facility] [id number] [place] [address] May, [facility] [address] [place] [address] May, Acute vaginitis N76.0 and En counter for other screening for malignant neoplasm of breast Z12.39 [address] [address] [address] Apr, [address] [address] [address] Apr, [address] [address] [address] Apr, Peripheral edema R60.9 [place] [address] [address] Apr, senior living (current) use of anticoagulant s Z79.01 [address] [address] [address] Apr, Peripheral edema R60.9 and terminal supervisor (cu rrent) use of anticoagulants Z79.01 [address] [address] [address] Apr, 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 [address] [address] [address] Apr, [address] [address] [address] Apr, senior living (current) use of anticoagulant s Z79.01 [address] [address] [address] Apr, Peripheral edema R60.9 [address] [address] [address] Mar, 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 [address] [address] [address] Mar, 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 and Hypertriglyceridemia E78.1 [place] [address] [address] Mar, senior living (current) use of anticoagulant s Z79.01 [place] [address] [address] Mar, 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 [place] [address] [address] Mar, [place] [address] [address] Mar, 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 ; Hypertriglyceridemia E78.1 ; Personal history of venous thrombosis and embolism Z86.718 and Lump R22.9 [place] [address] [address] Mar, Personal history of venous thrombosis an d embolism Z86.718 [place] [address] [address] Mar, Personal history of venous thrombosis an d embolism Z86.718 [place] [address] [address] Mar, [place] [address] [address] Dec, Personal history of venous thrombosis an d embolism Z86.718 [place] [address] [address] Dec, Personal history of venous thrombosis an d embolism V12.51 [place] [address] [address] 28 Nov, 2014 Personal history of venous thrombosis an d embolism V12.51 [place] [address] [address] Nov, Personal history of venous thrombosis an d embolism V12.51 [place] [address] [address] 17 Nov, 2014 Personal history of venous thrombosis an d embolism V12.51 [facility] [id number] [place] [address] Nov, Personal history of venous thrombosis an d embolism V12.51 [facility] [address] [address] Nov, [facility] [address] [address] Oct, Dysuria 788.1 [facility] [address] [address] Oct, Personal history of venous thrombosis an d embolism V12.51 [facility] [address] [address] Oct, [facility] [address] [address] Oct, Personal history of venous thrombosis an d embolism V12.51 [facility] [address] [address] Sep, Personal history of venous thrombosis an d embolism V12.51 [facility] [address] [address] Sep, Personal history of venous thrombosis an d embolism V12.51 [place] [address] [address] Aug, Personal history of venous thrombosis an d embolism V12.51 [facility] [address] [address] Aug, Personal history of venous thrombosis an d embolism V12.51 [facility] [address] [address] Aug, Personal history of venous thrombosis an d embolism V12.51 [facility] [address] [address] July, Generalized anxiety disorder 300.02 ; Ab dominal pain, left lower quadrant 789.04 and Personal history of venous thrombosis and embolism V12.51 [place] [address] [facility] [place] [address] 14 Jun, 2014 [facility] [address] [facility] [place] [address] Jun, [facility] [address] [id number] [place] [address] May, [facility] [address] [id number] [place] [address] May, [facility] [address] [id number] [place] [address] May, [facility] [address] [id number] [place] [address] May, [facility] [address] [id number] [place] [address] May, [facility] [address] [id number] [place] [address] May, [facility] [address] [id number] [place] [address] May, [facility] [address] [id number] [place] [address] May, [facility] [address] [id number] [place] [address] Apr, [facility] [address] [id number] [place] [address] Apr, [facility] [address] [id number] [place] [address] Apr, [facility] [address] [id number] [place] [address] Apr, [facility] [address] [id number] [place] [address] Apr, [facility] [address] [id number] [place] [address] Mar, [facility] [address] [id number] [place] [address] Mar, [facility] [address] [id number] [place] [address] Mar, [facility] [address] [id number] [place] [address] Mar, [facility] [address] [id number] [place] [address] Mar, [facility] [address] [id number] [place] [address] Mar, [facility] [address] [id number] [place] [address] Feb, [facility] [address] [id number] [place] [address] Feb, [facility] [address] [id number] [place] [address] Feb, [facility] [address] [id number] [place] [address] Feb, [facility] [address] [id number] [place] [address] Feb, [facility] [address] [id number] [place] [address] Feb, [facility] [address] [id number] [place] [address] Feb, [facility] [address] [id number] [place] [address] Feb, [facility] [address] [id number] [place] [address] Feb, [facility] [address] [id number] [place] [address] Feb, [facility] [address] [id number] [place] [address] Jan, [facility] [address] [id number] [place] [address] Jan, [facility] [address] [id number] [place] [address] Jan, [facility] [address] [facility]NOTE 3] [id number] [place] [address] Jan, [facility] [id number] [place] [address] Jan, [facility] [address] [id number] [place] [address] Jan, [facility] [address] [facility] [id number] [place] [address] Jan, [facility] [address] [facility] [id number] [place] [address] Jan, [facility] [address] [facility] [id number] [place] [address] Jan, [facility] [address] [facility] [id number] [place] [address] Jan, [facility] [address] [facility] [id number] [place] [address] Dec, [facility] [address] [id number] [place] [address] Dec, [facility] [address] [id number] [place] [address] Dec, [facility] [address] [facility] [id number] [place] [address] Dec, [facility] [address] [facility] [id number] [place] [address] Dec, [facility] [address] [id number] [place] [address] Dec, [facility] [address] [facility] [address] [id number] [place] [address] Dec, [facility] [address] [facility] [id number] [place] [address] Dec, [facility] [address] [id number] [place] [address] Dec, [facility] [facility] [id number] [place] [address] Dec, 2013 [facility] [id number] [place] [address] Dec, 2013 [facility] [id number] [place] [address] Dec, 2013 [facility] [id number] [place] [address] Dec, [facility] [id number] [place] [address] Dec, [facility] [id number] [place] [address] Dec, [facility] [id number] [place] [address] 30 Nov, 2013 [facility] [id number] [place] [address] 30 Nov, 2013 [facility] [id number] [place] [address] 26 Sep, 2013 [facility] [id number] [place] [address] 26 Sep, 2013 [facility] [id number] [place] [address] 24 Sep, 2013 [facility] [id number] [place] [address] 24 Sep, 2013 [facility] [id number] [place] [address] 23 Sep, 2013 [facility] [id number] [place] [address] 23 Sep, 2013 [facility] [id number] [place] [address] 18 Sep, 2013 [facility] [id number] [place] [address] 18 Nov, 2013 [facility] [id number] [place] [address] 17 Nov, 2013 [facility] [address] [facility][NOTE 3] [id number] [facility] [place] [address] 17 Nov, 2013 [facility] [address] [facility][NOTE 3] [id number] [facility] [place] [address] 11 Nov, 2013 [facility] [id number] [facility] [place] [address] 11 Nov, 2013 [facility] [address] [facility][NOTE 3] [id number] [place] [address] 10 Nov, 2013 [facility] [address] [facility][NOTE 3] [id number] [facility] [place] [address] 10 Nov, 2013 [facility] [address] [facility][NOTE 3] [id number] [facility] [place] [address] 08 Nov, 2013 [facility] [id number] [facility] [place] [address] 08 Nov, 2013 [facility] [id number] [facility] [place] [address] Sep, 2013 [facility] [address] [facility][NOTE 3] [id number] [place] [address] Sep, 2013 [facility] [id number] [place] [address] Sep, 2013 [facility] [id number] [place] [address] Sep, 2013 [facility] [id number] [place] [address] Sep, 2013 [facility] [address] [facility][NOTE 3] [id number] [place] [address] Sep, 2013 [facility] [id number] [place] [address] Aug, [facility] [address] [facility][NOTE 3] [id number] [place] [address] Aug, [facility] [id number] [place] [address] Aug, [facility] [id number] [facility] [place] [address] Aug, [facility] [address] [facility][NOTE 3] [id number] [place] [address] 24 Aug, 2013 [facility] [address] [facility][NOTE 3] [id number] [place] [address] Aug, [facility] [id number] [place] [address] Aug, [facility] [id number] [place] [address] Aug, [facility] [address] [facility][NOTE 3] [id number] [place] [address] Aug, [facility] [id number] [place] [address] Aug, [facility] [id number] [place] [address] Aug, [facility] [id number] [place] [address] July, [facility] [id number] [place] [address] July, [facility] [id number] [place] [address] Jun, [facility] [id number] [place] [address] Jun, [facility] [id number] [place] [address] Jun, [facility] [id number] [place] [address] Jun, [facility] [id number] [place] [address] Jun, [facility] [id number] [place] [address] Jun, [facility] [id number] [place] [address] 15 Jun, 2013 [facility] [id number] [place] [address] 15 Jun, 2013 [facility] [id number] [place] [address] 11 Jun, 2013 [facility] [id number] [place] [address] Jun, [facility] [id number] [place] [address] Jun, [facility] [address] [facility][NOTE 3] [id number] [place] [address] Jun, [facility] [id number] [place] [address] May, [facility] [id number] [place] [address] May, [facility] [id number] [place] [address] May, [facility] [id number] [place] [address] May, [facility] [id number] [place] [address] May, [facility] [id number] [place] [address] May, [facility] [id number] [place] [address] May, [facility] [id number] [place] [address] May, [facility] [id number] [place] [address] May, [facility] [id number] [place] [address] May, [facility] [id number] [place] [address] May, [facility] [id number] [place] [address] May, [facility] [id number] [place] [address] Apr, [facility] [id number] [place] [address] Apr, [facility] [id number] [place] [address] Apr, [facility] [id number] [place] [address] Apr, [facility] [id number] [place] [address] Apr, [facility] [id number] [place] [address] Apr, [facility] [id number] [place] [address] Apr, [facility] [id number] [place] [address] Apr, [facility] [id number] [place] [address] Apr, [facility] [id number] [place] [address] Apr, [facility] [id number] [place] [address] Apr, [facility] [id number] [place] [address] Apr, [facility] [id number] [place] [address] Apr, [facility] [id number] [place] [address] Apr, [facility] [id number] [place] [address] Apr, [facility] [id number] [place] [address] Apr, [facility] [id number] [place] [address] Apr, [facility] [id number] [place] [address] Jan, [facility] [id number] [place] [address] Jan, [facility] [id number] [place] [address] Jan, [facility] [id number] [place] [address] Jan, [facility] [id number] [place] [address] Jan, [facility] [id number] [place] [address] Jan, [facility] [id number] [place] [address] Jan, [facility] [id number] [place] [address] Dec, [facility] [id number] [place] [address] Dec, [facility] [id number] [place] [address] Dec, [facility] [id number] [place] [address] Nov, 2012 [facility] [id number] [place] [address] 10 Nov, 2012 [facility] [id number] [place] [address] 05 Nov, 2012 [facility] [id number] [place] [address] 04 Nov, 2012 [facility] [id number] [place] [address] Oct, [facility] [id number] [place] [address] Oct, [facility] [address] [id number] [facility] [place] [address] Oct, [facility] [id number] [place] [address] Oct, [facility] [id number] [place] [address] Oct, [facility] [id number] [place] [address] Sep, [facility] [address] [id number] [place] [address] Sep, [facility] [id number] [place] [address] Sep, [facility] [id number] [place] [address] Sep, [facility] [id number] [place] [address] Sep, [facility] [id number] [place] [address] Sep, [facility] [id number] [place] [address] Sep, [facility] [id number] [place] [address] Aug, [facility] [id number] [place] [address] Aug, [facility] [id number] [place] [address] July, [facility] [address] [id number] [place] [address] Jun, [facility] [id number] [place] [address] Jun, [facility] [id number] [place] [address] Jun, [facility] [id number] [place] [address] Apr, [facility] [id number] [place] [address] Apr, [facility] [id number] [place] [address] Apr, [facility] [id number] [place] [address] Mar, [facility] [id number] [place] [address] Mar, [facility] [id number] [place] [address] Mar, [facility] [id number] [place] [address] Mar, [facility] [id number] [place] [address] Mar, [facility] [id number] [place] [address] 14 Feb, 2012 [facility] [id number] [place] [address] 14 Feb, 2012 [facility] [id number] [place] [address] Jan, [facility] [id number] [place] [address] 13 Jan, 2012 [facility] [id number] [place] [address] 13 Jan, 2012 [facility] [id number] [place] [address] 13 Jan, 2012 [facility] [id number] [place] [address] 07 Jan, 2012 [facility] [id number] [place] [address] 07 Jan, 2012 [facility] [id number] [place] [address] Jan, [facility] [id number] [place] [address] Dec, [facility] [id number] [place] [address] Dec, [facility] [id number] [place] [address] Dec, [facility] [id number] [place] [address] Dec, [facility] [id number] [place] [address] Dec, [facility] [id number] [place] [address] Dec, [facility] [id number] [place] [address] Dec, [facility] [id number] [place] [address] Dec, [facility] [id number] [place] [address] Dec, [facility] [id number] [place] [address] Dec, [facility] [id number] [place] [address] Oct, [facility] [id number] [place] [address] Oct, [facility] [id number] [place] [address] Aug, [facility] [id number] [place] [address] Aug, [facility] [id number] [place] [address] July, [facility] [id number] [place] [address] Jun, [facility] [id number] [place] [address] Jun, [facility] [id number] [place] [address] May, [facility] [id number] [place] [address] Apr, [facility] [id number] [place] [address] Apr, [facility] [id number] [place] [address] Mar, [facility] [id number] [place] [address] Mar, [facility] [address] [id number] [place] [address] Feb, [facility] [id number] [place] [address] 15 Feb, 2011 [facility] [address] [facility] [id number] [place] [address] Feb, [facility] [id number] [place] [address] Feb, [facility] [id number] [place] [address] Jan, [facility] [id number] [place] [address] 17 Dec, 2010 [facility] [id number] [place] [address] 08 Feb, 2010 [facility] [id number] [place] [address] Feb, [facility] [id number] [place] [address] Feb, [facility] [id number] [place] [address] Feb, [facility] [id number] [place] [address] Dec, [facility] [id number] [place] [address] Dec, [facility] [id number] [place] [address] Oct, [facility] [id number] [place] [address] Jun, [facility] [id number] [place] [address] Feb, [facility] [id number] [place] [address] Feb, [facility] [id number] [place] [address] Feb, [facility] [id number] [place] [address] Dec, IMMUNIZATIONS No Known Immunizations SOCIAL HISTORY [...] 1985, 1987 Surgical History cholecystectomy Surgical History Arkoma Filter 06/2009 Surgical History Left leg exploratory [...]
--- OUTSIDE RECORDS SUMMARY | 2019-10-19 12:50 | XMS REPORT ---
Author Author Mary Jane Mcginnis Doctor Organization [facility] Address Unknown Phone Unavailable Care Team Providers Care Refuse Laborer Name Role Phone Migration, Doctor Unavailable Unavailable PROBLEMS Type Condition ICD9-CM Code HOL87-DL Code Onset Dates Condition S tatus SNOMED Code Problem Thyroid follicular adenoma D34 Act phylicia 788297539 Problem History of DVT (deep vein thrombosis) Z86.718 Active 670940248 Problem Factor V Leiden D68.51 Active 3070 99896 Problem snf (current) use of anticoagulants Z79.01 Active 859052841 Problem Hypertriglyceridemia E78.1 Active 748324699 Problem 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 Active 130791576 Problem Pelvic pain R10.2 Active 67136242 Problem Peripheral edema R60.9 Active 271 144639 Problem Moderate episode of recurrent major depressive disorder F33.1 Active 157642149 Problem Presence of IVC filter Z95.828 Active 843646318 Problem Vitamin D deficiency E55.9 Active 10455267 Problem Generalized anxiety disorder F41.1 A ctive 713543302 Problem Excessive daytime sleepiness G47.19 A ctive 885105441532 Problem Gastroesophageal reflux disease, esophagitis pre sence not specified K21.9 Active 846572584 Problem Thyroid nodule E04.1 Active 46195 5005 Problem Morbid obesity E66.01 Active 66394 6002 ALLERGIES No Information ENCOUNTERS Encounter Location Date Diagnosis [place] [id number] [place] [address] 12 Apr, 2019 Back pain with history of spinal surgery M54.9 [place] [address] [address] Apr, [place] [address] [address] 10 Apr, 2019 Gastroenteritis K52.9 ; Back pain with h istory of spinal surgery M54.9 ; Dermatofibroma of lower leg, unspecified laterality D23.70 and Morbid obesity E66.01 [place] [address] [address] Mar, [place] [address] [address] Jan, [place] [address] [address] Jan, [place] [address] [address] Dec, Encounter for weight management Z76.89 [place] [address] [address] Dec, Encounter for weight management Z76.89 a nd Screening mammogram, encounter for Z12.31 [place] [address] [address] Nov, Encounter for weight management Z76.89 [place] [address] [address] Nov, Thyroid nodule E04.1 [place] [address] [address] Nov, Thyroid nodule E04.1 [place] [address] [address] Nov, Thyroid nodule E04.1 [place] [address] [address] Oct, Syncope, unspecified syncope type R55 an d Encounter for weight management Z76.89 [place] [address] [address] Oct, Morbid obesity E66.01 [place] [address] [address] Oct, Hypertriglyceridemia E78.1 [place] [address] [address] Oct, [place] [address] [address] Oct, Hypertriglyceridemia E78.1 [facility] [address] [address] Sep, Hypertriglyceridemia E78.1 and Vitamin D deficiency E55.9 [facility] [address] [address] Sep, [facility] [address] [address] Sep, Morbid obesity E66.01 ; Moderate episode of recurrent major depressive disorder F33.1 ; Hypertriglyceridemia E78.1 and Vitamin D deficiency E55.9 [facility] [address] [address] Aug, [facility] [address] [address] July, [facility] [address] [address] July, [facility] [address] [address] Jun, [facility] [address] [address] Jun, [facility] [address] [address] Jun, Closed compression fracture of L3 lumbar vertebra with routine healing, subsequent encounter S32.030D and Drug-induced constipation K59.03 [facility] [address] [address] Jun, [facility] [address] [address] Jun, [facility] [address] [address] Apr, [facility] [address] [address] Apr, Morbid obesity E66.01 [facility] [address] [place] [address] 12 Apr, 2018 Morbid obesity E66.01 ; Hypertriglycerid emia E78.1 ; Gastroesophageal reflux disease, esophagitis presence not specified K21.9 and Joint pain M25.50 [facility] [id number] [place] [address] Feb, [facility] [id number] [place] [address] Feb, [facility] [address] [facility] [id number] [place] [address] Jan, Acute bacterial conjunctivit is H10.30 [facility] [address] [address] 08 Dec, 2017 [facility] [address] [address] 04 Dec, 2017 [facility] [address] [address] 17 Nov, 2017 [facility] [address] [address] 07 Nov, 2017 Obstructive sleep apnea G47.33 ; Morbid obesity E66.01 and Gastroesophageal reflux disease, esophagitis presence not specified K21.9 [facility] [address] [facility] [place] [id number] 06 Nov, 2017 Encounter for examination of eyes and vi ray without abnormal findings Z01.00 [facility] [id number] [place] [address] 31 Oct, 2017 Thyroid nodule E04.1 and Screening for b reast cancer Z12.31 [facility] [id number] [place] [address] 23 Oct, 2017 History of DVT (deep vein thrombosis) Z8 6.718 ; Thyroid nodule E04.1 and Gastroesophageal reflux disease, esophagitis presence not specified K21.9 [facility] [address] [address] Oct, [facility] [address] [address] Sep, [place] [address] [address] Aug, [place] [address] [address] Aug, [place] [address] [address] Aug, Acute pain of left shoulder M25.512 and Thyroid nodule E04.1 [place] [address] [address] July, Superior glenoid labrum lesion of left mehdi roy, subsequent encounter S43.432D [place] [address] [address] Jun, History of DVT (deep vein thrombosis) Z8 6.718 [place] [address] [address] Jun, History of DVT (deep vein thrombosis) Z8 6.718 [place] [address] [address] Jun, Impingement syndrome, shoulder, left M75 .42 [place] [address] [address] May, Subacromial bursitis of left shoulder saurabh int M75.52 [place] [address] [address] May, [address] [address] May, Hypertriglyceridemia E78.1 ; 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 and Excessive daytime sleepiness G47.19 [place] [address] [address] May, History of DVT (deep vein thrombosis) Z8 6.718 ; Generalized anxiety disorder F41.1 ; Hypertriglyceridemia E78.1 ; 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 ; Subacromial bursitis of left shoulder joint M75.52 and Excessive daytime sleepiness G47.19 [place] [address] [address] May, [place] [address] [address] May, 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 Z79.01 [place] [address] [address] Apr, snf (current) use of anticoagulant s Z79.01 [place] [address] [address] Apr, 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 Z79.01 [place] [address] [address] 20 Apr, 2017 snf (current) use of anticoagulant s Z79.01 [place] [address] [address] Apr, [place] [address] [address] 16 Apr, 2017 snf (current) use of anticoagulant s Z79.01 [place] [address] [address] 13 Apr, 2017 snf (current) use of anticoagulant s Z79.01 [place] [address] [address] Apr, snf (current) use of anticoagulant s Z79.01 [place] [address] [address] Apr, 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 Z79.01 [place] [address] [address] 07 Apr, 2017 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 Z79.01 [place] [address] [address] Apr, snf (current) use of anticoagulant s Z79.01 [facility] [address] [address] Mar, 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 Z79.01 [facility] [address] [address] Mar, [facility] [address] [address] Mar, snf (current) use of anticoagulant s Z79.01 [facility] [address] [id number] Jan, Dental examination Z01.20 [facility] [address] [id number] Jan, [facility] [address] [address] Jan, snf (current) use of anticoagulant s Z79.01 [facility] [address] [address] Jan, History of DVT (deep vein thrombosis) Z8 6.718 [place] [address] [address] Jan, Generalized anxiety disorder F41.1 and P eripheral edema R60.9 [facility] [address] [address] Nov, History of DVT (deep vein thrombosis) Z8 6.718 [facility] [address] [address] Nov, 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 Z79.01 [facility] [address] [facility] [id number] [address] [place] [address] Nov, Acute non-recurrent maxillar y sinusitis J01.00 [facility] [address] [address] Oct, snf (current) use of anticoagulant s Z79.01 [place] [address] [address] Oct, Personal history of venous thrombosis an d embolism Z86.718 [place] [address] [address] Sep, [place] [address] [address] Sep, Personal history of venous thrombosis an d embolism Z86.718 [place] [address] [address] Sep, 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 Z79.01 [place] [address] [address] Sep, snf (current) use of anticoagulant s Z79.01 [place] [address] [address] Sep, Generalized anxiety disorder F41.1 and H istory of DVT (deep vein thrombosis) Z86.718 [place] [address] [address] Aug, History of DVT (deep vein thrombosis) Z8 6.718 ; Generalized anxiety disorder F41.1 ; snf (current) use of anticoagulants Z79.01 ; Pelvic pain R10.2 ; Hypertriglyceridemia E78.1 ; Excessive daytime sleepiness G47.19 ; Colon cancer screening Z12.11 ; Screening for breast cancer Z12.39 ; Peripheral edema R60.9 and Gastroesophageal reflux disease, esophagitis presence not specified K21.9 [place] [address] [address] Aug, [place] [address] [address] July, [place] [address] [address] July, History of DVT (deep vein thrombosis) Z8 6.718 [place] [address] [address] Jun, Generalized anxiety disorder F41.1 [place] [address] [address] Jun, History of DVT (deep vein thrombosis) Z8 6.718 [place] [address] [address] Jun, History of DVT (deep vein thrombosis) Z8 6.718 [place] [address] [address] Jun, History of DVT (deep vein thrombosis) Z8 6.718 [place] [address] [address] Jun, History of DVT (deep vein thrombosis) Z8 6.718 [place] [address] [address] May, History of DVT (deep vein thrombosis) Z8 6.718 [place] [address] [address] May, snf (current) use of anticoagulant s Z79.01 [place] [address] [address] May, 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 Z79.01 [place] [address] [address] May, History of DVT (deep vein thrombosis) Z8 6.718 [facility] [address] [facility] [id number] [address] [place] [address] Apr, Bacterial conjunctivitis of left eye H10.9 and H/O motion sickness Z87.898 [facility] [address] [address] Apr, History of DVT (deep vein thrombosis) Z8 6.718 [place] [address] [address] 23 Apr, 2016 History of DVT (deep vein thrombosis) Z8 6.718 [place] [address] [address] 15 Apr, 2016 History of DVT (deep vein thrombosis) Z8 6.718 [place] [address] [address] 14 Apr, 2016 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 Z79.01 [place] [address] [address] Mar, [place] [address] [address] Mar, snf (current) use of anticoagulant s Z79.01 [place] [address] [address] Mar, Hypertriglyceridemia E78.1 and 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 [place] [address] [address] Feb, 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 Z79.01 [place] [address] [address] Feb, snf (current) use of anticoagulant s Z79.01 [place] [address] [address] Feb, snf (current) use of anticoagulant s Z79.01 [place] [address] [address] Dec, [place] [address] [address] Nov, [place] [address] [address] 13 Nov, 2015 History of DVT (deep vein thrombosis) Z8 6.718 ; Tremulousness R25.1 ; Generalized anxiety disorder F41.1 ; Peripheral edema R60.9 and Hypertriglyceridemia E78.1 [place] [address] [address] Oct, History of DVT (deep vein thrombosis) Z8 6.718 [place] [address] [address] Oct, [place] [address] [address] Sep, History of DVT (deep vein thrombosis) Z8 6.718 [place] [address] [address] Sep, 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 Z79.01 [place] [address] [address] July, [place] [address] [address] July, 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 Z79.01 [place] [address] [address] July, snf (current) use of anticoagulant s Z79.01 [place] [address] [address] Jun, snf (current) use of anticoagulant s Z79.01 [facility] [place] [address] [place] [address] Jun, Coccyx pain M53.3 ; Encounte r for therapeutic drug level monitoring Z51.81 and 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 supervisor current use 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.01 [place] [address] [address] May, Abnormal mammogram R92.8 [facility] [place] [address] [place] [id number] [place] [address] May, [facility] [place] [address] [place] [id number] [place] [address] May, Acute vaginitis N76.0 and En counter for other screening for malignant neoplasm of breast Z12.39 [place] [address] [address] Apr, [place] [address] [place] [address] [id number] Apr, [place] [address] [address] Apr, Peripheral edema R60.9 [place] [address] [place] [address] [address] Apr, 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 Z79.01 [place] [address] [address] Apr, Peripheral edema R60.9 and 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 supervisor (cu rrent) use of anticoagulants Z79.01 [place] [address] [address] Apr, 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 Z79.01 [place] [address] [address] Apr, [place] [address] [address] Apr, snf (current) use of anticoagulant s Z79.01 [place] [address] [address] Apr, Peripheral edema R60.9 [place] [address] [address] Mar, 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 Z79.01 [place] [address] [address] Mar, snf (current) use of anticoagulant s Z79.01 and Hypertriglyceridemia E78.1 [place] [address] [address] Mar, snf (current) use of anticoagulant s Z79.01 [place] [address] [address] Mar, 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 Z79.01 [place] [address] [address] Mar, [place] [address] [address] Mar, snf (current) use of anticoagulant s Z79.01 ; Hypertriglyceridemia E78.1 ; Personal history of venous thrombosis and embolism Z86.718 and Lump R22.9 [place] [address] [address] Mar, Personal history of venous thrombosis an d embolism Z86.718 [place] [address] [address] Mar, Personal history of venous thrombosis an d embolism Z86.718 [place] [address] [address] Mar, [place] [address] [address] Dec, Personal history of venous thrombosis an d embolism Z86.718 [place] [address] [address] Dec, Personal history of venous thrombosis an d embolism V12.51 [place] [address] [address] 28 Nov, 2014 Personal history of venous thrombosis an d embolism V12.51 [place] [address] [address] 25 Nov, 2014 Personal history of venous thrombosis an d embolism V12.51 [place] [address] [address] 17 Nov, 2014 Personal history of venous thrombosis an d embolism V12.51 [place] [address] [address] Nov, Personal history of venous thrombosis an d embolism V12.51 [facility] [address] [address] Nov, [facility] [address] [address] Oct, Dysuria 788.1 [place] [address] [address] Oct, Personal history of venous thrombosis an d embolism V12.51 [facility] [address] [address] Oct, [place] [address] [address] Oct, Personal history of venous thrombosis an d embolism V12.51 [place] [address] [address] Sep, Personal history of venous thrombosis an d embolism V12.51 [place] [address] [address] Sep, Personal history of venous thrombosis an d embolism V12.51 [place] [address] [address] Aug, Personal history of venous thrombosis an d embolism V12.51 [place] [address] [address] Aug, Personal history of venous thrombosis an d embolism V12.51 [place] [address] [address] Aug, Personal history of venous thrombosis an d embolism V12.51 [place] [address] [address] July, Generalized anxiety disorder 300.02 ; Ab dominal pain, left lower quadrant 789.04 and Personal history of venous thrombosis and embolism V12.51 [place] [address] [address] Jun, [facility] [address] [id number] [place] [address] Jun, [facility] [address] [id number] [place] [address] May, [facility] [address] [id number] [place] [address] May, [facility] [address] [id number] [place] [address] May, [facility] [address] [id number] [place] [address] May, [facility] [address] [id number] [place] [address] May, [facility] [address] [id number] [place] [address] May, [facility] [address] [id number] [place] [address] May, [facility] [address] [id number] [place] [address] May, [facility] [address] [id number] [place] [address] Apr, [facility] [address] [id number] [place] [address] Apr, [facility] [address] [id number] [place] [address] Apr, [facility] [address] [id number] [place] [address] Apr, [facility] [address] [id number] [place] [address] Apr, [facility] [address] [id number] [place] [address] Mar, [facility] [address] [id number] [place] [address] Mar, [facility] [address] [id number] [place] [address] Mar, [facility] [address] [id number] [place] [address] Mar, [facility] [address] [id number] [place] [address] Mar, [facility] [address] [id number] [place] [address] Mar, [facility] [address] [id number] [place] [address] Feb, [facility] [address] [id number] [place] [address] Feb, [facility] [address] [id number] [place] [address] Feb, [facility] [address] [id number] [place] [address] Feb, [facility] [address] [id number] [place] [address] Feb, [facility] [address] [id number] [place] [address] Feb, [facility] [address] [id number] [place] [address] Feb, [facility] [address] [id number] [place] [address] Feb, [facility] [address] [id number] [place] [address] Feb, [facility] [address] [id number] [place] [address] Feb, [facility] [address] [id number] [place] [address] Jan, [facility] [address] [id number] [place] [id number] Jan, [facility] [address] [id number] [place] [address] Jan, [facility] [address] [id number] [place] [address] Jan, [facility] [address] [facility] [id number] [place] [address] Jan, [facility] [address] [id number] [place] [address] Jan, [facility] [address] [id number] [place] [address] Jan, [facility] [address] [id number] [place] [address] Jan, [facility] [address] [id number] [place] [address] Jan, [facility] [address] [id number] [place] [id number] Jan, [facility] [address] [id number] [place] [address] Dec, [facility] [address] [id number] [place] [address] Dec, [facility] [address] [id number] [place] [address] Dec, [facility] [address] [id number] [place] [address] Dec, [facility] [address] [id number] [place] [id number] Dec, [facility] [address] [id number] [place] [address] Dec, [facility] [address] [facility] [id number] [place] [address] Dec, [facility] [address] [id number] [place] [address] Dec, [facility] [address] [id number] [place] [address] Dec, [facility] [address] [id number] [place] [address] Dec, [facility] [address] [id number] [place] [address] Dec, 2013 [facility] [address] [id number] [place] [address] Dec, [facility] [address] [id number] [place] [address] Dec, 2013 [facility] [address] [id number] [place] [address] Dec, [facility] [address] [id number] [place] [address] Dec, [facility] [address] [id number] [place] [address] 30 Nov, 2013 [facility] [address] [id number] [place] [address] 30 Nov, 2013 [facility] [address] [id number] [place] [address] 26 Nov, 2013 [facility] [address] [id number] [place] [address] 26 Nov, 2013 [facility] [address] [id number] [place] [address] 24 Nov, 2013 [facility] [address] [id number] [place] [address] 24 Sep, 2013 [facility] [address] [id number] [place] [address] 23 Nov, 2013 [facility] [address] [id number] [place] [address] 23 Sep, 2013 [facility] [address] [id number] [place] [address] 18 Sep, 2013 [facility] [address] [id number] [place] [address] 18 Sep, 2013 [facility] [address] [id number] [place] [address] 17 Sep, 2013 [facility] [address] [id number] [place] [address] 17 Nov, 2013 [facility] [address] [facility] [id number] [facility] [place] [address] 11 Nov, 2013 [facility] [address] [facility] [id number] [facility] [place] [address] 11 Nov, 2013 [facility] [address] [id number] [facility] [place] [address] 10 Nov, 2013 [facility] [address] [facility] [id number] [facility] [place] [address] 10 Nov, 2013 [facility] [address] [facility] [id number] [facility] [place] [address] 08 Nov, 2013 [facility] [address] [facility] [id number] [place] [address] 08 Nov, 2013 [facility] [address] [id number] [place] [address] Sep, 2013 [facility] [address] [id number] [place] [address] Sep, 2013 [facility] [address] [facility] [id number] [place] [address] Sep, 2013 [facility] [address] [id number] [place] [address] Sep, 2013 [facility] [address] [id number] [place] [address] Sep, 2013 [facility] [address] [id number] [place] [address] Sep, 2013 [facility] [address] [facility] [id number] [place] [address] Aug, [facility] [address] [id number] [place] [address] Aug, [facility] [address] [facility] [id number] [place] [address] Aug, [facility] [address] [id number] [place] [address] Aug, [facility] [address] [id number] [place] [address] 24 Aug, 2013 [facility] [address] [id number] [place] [address] Aug, [facility] [address] [facility] [id number] [place] [address] Aug, [facility] [address] [id number] [place] [address] Aug, [facility] [address] [id number] [place] [address] Aug, [facility] [address] [id number] [place] [address] Aug, [facility] [address] [id number] [place] [address] Aug, [facility] [address] [id number] [place] [address] July, [facility] [address] [id number] [place] [address] July, [facility] [address] [id number] [place] [address] Jun, [facility] [address] [id number] [place] [address] Jun, [facility] [address] [id number] [place] [address] Jun, [facility] [address] [id number] [place] [address] Jun, [facility] [address] [id number] [place] [address] Jun, [facility] [address] [id number] [place] [address] Jun, [facility] [address] [id number] [place] [address] 15 Jun, 2013 [facility] [address] [id number] [place] [address] 15 Jun, 2013 [facility] [address] [id number] [place] [address] 11 Jun, 2013 [facility] [address] [id number] [place] [address] 11 Jun, 2013 [facility] [address] [id number] [place] [address] 10 Jun, 2013 [facility] [address] [id number] [place] [address] Jun, [facility] [address] [id number] [place] [address] May, [facility] [address] [id number] [place] [address] May, [facility] [address] [id number] [place] [address] May, [facility] [address] [id number] [place] [address] May, [facility] [address] [id number] [place] [address] May, [facility] [address] [id number] [place] [address] May, [facility] [address] [id number] [place] [address] May, [facility] [address] [id number] [place] [address] May, [facility] [address] [id number] [place] [address] May, [facility] [address] [id number] [place] [address] May, [facility] [address] [id number] [place] [address] May, [facility] [address] [id number] [place] [address] May, [facility] [address] [id number] [place] [address] Apr, [facility] [address] [id number] [place] [address] Apr, [facility] [address] [id number] [place] [address] Apr, [facility] [address] [id number] [place] [address] Apr, [facility] [address] [id number] [place] [address] Apr, [facility] [address] [id number] [place] [address] Apr, [facility] [address] [id number] [place] [address] Apr, [facility] [address] [id number] [place] [address] Apr, [facility] [address] [id number] [place] [address] Apr, [facility] [address] [id number] [place] [address] Apr, [facility] [address] [id number] [place] [address] Apr, [facility] [address] [id number] [place] [address] Apr, [facility] [address] [id number] [place] [address] Apr, [facility] [address] [id number] [place] [address] Apr, [facility] [address] [id number] [place] [address] Apr, [facility] [address] [id number] [place] [address] Apr, [facility] [address] [id number] [place] [address] Apr, [facility] [address] [id number] [place] [address] Jan, [facility] [address] [id number] [place] [address] Jan, [facility] [address] [id number] [place] [address] 08 Jan, 2013 [facility] [address] [id number] [place] [address] Jan, [facility] [address] [id number] [place] [address] Jan, [facility] [address] [id number] [place] [address] Jan, [facility] [address] [id number] [place] [address] Jan, [facility] [address] [id number] [place] [address] Dec, [facility] [address] [id number] [place] [address] Dec, [facility] [address] [id number] [place] [address] Dec, [facility] [address] [id number] [place] [address] Nov, 2012 [facility] [address] [id number] [place] [address] 10 Nov, 2012 [facility] [address] [id number] [place] [address] 05 Nov, 2012 [facility] [address] [id number] [place] [address] 04 Nov, 2012 [facility] [address] [id number] [place] [address] Oct, [facility] [address] [id number] [place] [address] Oct, [facility] [address] [id number] [place] [address] Oct, [facility] [address] [id number] [facility] [place] [address] Oct, [facility] [address] [id number] [place] [address] Oct, [facility] [address] [id number] [place] [address] Sep, [facility] [address] [id number] [place] [address] Sep, [facility] [address] [id number] [place] [address] Sep, [facility] [address] [id number] [place] [address] Sep, [facility] [address] [id number] [place] [address] Sep, [facility] [address] [id number] [place] [address] Sep, [facility] [address] [id number] [place] [address] Sep, [facility] [address] [id number] [place] [address] Aug, [facility] [address] [id number] [place] [address] Aug, [facility] [address] [id number] [place] [address] July, [facility] [address] [id number] [place] [address] Jun, [facility] [address] [id number] [place] [address] Jun, [facility] [address] [id number] [place] [address] Jun, [facility] [address] [id number] [place] [address] Apr, [facility] [address] [id number] [place] [address] Apr, [facility] [address] [id number] [place] [address] Apr, [facility] [address] [id number] [place] [address] Mar, [facility] [address] [id number] [place] [address] Mar, [facility] [address] [id number] [place] [address] Mar, [facility] [address] [id number] [place] [address] Mar, [facility] [address] [id number] [place] [address] Mar, [facility] [address] [id number] [place] [address] 14 Feb, 2012 [facility] [address] [id number] [place] [address] 14 Feb, 2012 [facility] [address] [id number] [place] [address] Jan, [facility] [address] [id number] [place] [address] Jan, [facility] [address] [id number] [place] [address] 13 Jan, 2012 [facility] [address] [id number] [place] [address] 13 Jan, 2012 [facility] [address] [id number] [place] [address] Jan, [facility] [address] [id number] [place] [address] 07 Jan, 2012 [facility] [address] [id number] [place] [address] 06 Jan, 2012 [facility] [address] [id number] [place] [address] Dec, [facility] [address] [facility] [id number] [place] [address] Dec, [facility] [address] [id number] [place] [address] Dec, [facility] [address] [id number] [place] [address] Dec, [facility] [address] [id number] [place] [address] Dec, [facility] [address] [id number] [place] [address] Dec, [facility] [address] [id number] [place] [address] Dec, [facility] [address] [id number] [place] [address] Dec, [facility] [address] [id number] [place] [address] Dec, [facility] [address] [id number] [place] [address] Dec, [facility] [address] [id number] [place] [address] Oct, [facility] [address] [id number] [place] [address] Oct, [facility] [address] [id number] [place] [address] Aug, [facility] [address] [id number] [place] [address] Aug, [facility] [address] [id number] [place] [address] July, [facility] [address] [id number] [place] [address] Jun, [facility] [address] [id number] [place] [address] Jun, [facility] [address] [id number] [place] [address] May, [facility] [address] [id number] [place] [address] Apr, [facility] [address] [id number] [place] [address] Apr, [facility] [address] [id number] [place] [address] Mar, [facility] [address] [id number] [place] [address] Mar, [facility] [address] [id number] [place] [address] Feb, [facility] [address] [id number] [place] [address] 15 Feb, 2011 [facility] [address] [id number] [place] [address] Feb, [facility] [address] [id number] [place] [address] Feb, [facility] [address] [id number] [place] [address] Jan, [facility] [address] [id number] [place] [address] 17 Dec, 2010 [facility] [address] [id number] [place] [address] 08 Feb, 2010 [facility] [address] [id number] [place] [address] Feb, [facility] [address] [id number] [place] [id number] Feb, [facility] [address] [id number] [place] [address] Feb, [facility] [address] [id number] [place] [id number] 15 Dec, 2009 [facility] [address] [id number] [place] [address] Dec, [facility] [address] [id number] [place] [address] Oct, [facility] [address] [id number] [place] [address] Jun, [facility] [address] [id number] [place] [address] Feb, [facility] [address] [id number] [place] [address] Feb, [facility] [address] [id number] [place] [address] Feb, [facility] [address] [id number] [place] [address] Dec, IMMUNIZATIONS No Known Immunizations SOCIAL HISTORY Never Assessed REASON FOR VISIT PLAN OF CARE VITAL SIGNS Height 64 in 2013-05-18 Weight 206 lbs 2013-05-18 Temperature 98.2 degrees Fahrenheit 2013-05-18 Heart Rate 82 bpm 2013-05-18 Respiratory Rate 22 2013-05-18 Blood pressure systolic 122 mmHg 2013-05-18 Blood pressure diastolic 74 mmHg 2013-05-18 MEDICATIONS Unknown Medications RESULTS No Results PROCEDURES Procedure Date Ordered Result Body Site COMPLETE CBC W/AUTO DIFF WBC May 18, 2013 PROTHROMBIN TIME May 18, 2013 ASSAY OF MAGNESIUM May 18, 2013 COMPREHEN METABOLIC PANEL May 18, 2013 MRI JNT OF LWR EXTRE W/O DYE May 18, 2013 VENIPUNCT, ROUTINE* May 18, 2013 INSTRUCTIONS MEDICATIONS ADMINISTERED No Known Medications [...]
--- OUTSIDE RECORDS SUMMARY | 2019-10-19 12:50 | XMS REPORT ---
Author Author Mary Jane Mcginnis Doctor Organization [facility] Address Unknown Phone Unavailable Care Team Providers Care Investment Specialist Name Role Phone Migration, Doctor Unavailable Unavailable PROBLEMS Type Condition ICD9-CM Code DXT13-BI Code Onset Dates Condition S tatus SNOMED Code Problem Thyroid follicular adenoma D34 Act phylicia 772678216 Problem History of DVT (deep vein thrombosis) Z86.718 Active 920796372 Problem Factor V Leiden D68.51 Active 3070 76307 Problem long-term (current) 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 Z79.01 Active 514355212 Problem Hypertriglyceridemia E78.1 Active 082999215 Problem 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 Active 373308747 Problem Pelvic pain R10.2 Active 63540228 Problem Peripheral edema R60.9 Active 271 234896 Problem Moderate episode of recurrent major depressive disorder F33.1 Active 699680154 Problem Presence of IVC filter Z95.828 Active 928870702 Problem Vitamin D deficiency E55.9 Active 97590253 Problem Generalized anxiety disorder F41.1 A ctive 818664534 Problem Excessive daytime sleepiness G47.19 A ctive 637084944452 Problem Gastroesophageal reflux disease, esophagitis pre sence not specified K21.9 Active 811912216 Problem Thyroid nodule E04.1 Active 43977 5005 Problem Morbid obesity E66.01 Active 45742 6002 ALLERGIES No Information ENCOUNTERS Encounter Location Date Diagnosis [place] [address] [address] [id number] [place] [address] 12 Apr, 2019 Back pain with history of spinal surgery M54.9 [place] [address] [address] 11 Apr, 2019 [place] [address] [address] 10 Apr, 2019 Gastroenteritis K52.9 ; Back pain with h istory of spinal surgery M54.9 ; Dermatofibroma of lower leg, unspecified laterality D23.70 and Morbid obesity E66.01 [place] [address] [address] Mar, [place] [address] [address] Jan, [place] [address] [address] Jan, [place] [address] [address] Dec, Encounter for weight management Z76.89 [place] [address] [address] Dec, Encounter for weight management Z76.89 a nd Screening mammogram, encounter for Z12.31 [place] [address] [address] Nov, Encounter for weight management Z76.89 [place] [address] [address] Nov, Thyroid nodule E04.1 [place] [address] [address] Nov, Thyroid nodule E04.1 [place] [address] [address] Nov, Thyroid nodule E04.1 [place] [address] [address] Oct, Syncope, unspecified syncope type R55 an d Encounter for weight management Z76.89 [place] [address] [address] Oct, Morbid obesity E66.01 [place] [address] [address] Oct, Hypertriglyceridemia E78.1 [place] [address] [address] Oct, [place] [address] [address] Oct, Hypertriglyceridemia E78.1 [facility] [place] [address] [address] Sep, Hypertriglyceridemia E78.1 and Vitamin D deficiency E55.9 [facility] [place] [address] [address] Sep, [facility] [place] [address] [address] Sep, Morbid obesity E66.01 ; Moderate episode of recurrent major depressive disorder F33.1 ; Hypertriglyceridemia E78.1 and Vitamin D deficiency E55.9 [facility] [place] [address] [address] Aug, [facility] [place] [address] [address] July, [facility] [place] [address] [address] July, [facility] [place] [address] [address] Jun, [facility] [place] [address] [address] Jun, [facility] [place] [address] [address] Jun, Closed compression fracture of L3 lumbar vertebra with routine healing, subsequent encounter S32.030D and Drug-induced constipation K59.03 [facility] [place] [address] [address] Jun, [facility] [place] [address] [address] Jun, [facility] [place] [address] [address] Apr, [facility] [place] [address] [address] Apr, Morbid obesity E66.01 [facility] [place] [address] [place] [address] 12 Apr, 2018 Morbid obesity E66.01 ; Hypertriglycerid emia E78.1 ; Gastroesophageal reflux disease, esophagitis presence not specified K21.9 and Joint pain M25.50 [facility] [place] [address] [id number] [place] [address] Feb, [facility] [place] [address] [id number] [place] [address] Feb, [facility] [address] [facility] [id number] [place] [address] Jan, Acute bacterial conjunctivit is H10.30 [facility] [place] [address] [address] 08 Dec, 2017 [facility] [place] [address] [address] 04 Dec, 2017 [facility] [place] [address] [address] 17 Nov, 2017 [facility] [place] [address] [address] 07 Nov, 2017 Obstructive sleep apnea G47.33 ; Morbid obesity E66.01 and Gastroesophageal reflux disease, esophagitis presence not specified K21.9 [facility] [address] [facility] [place] [address] 06 Nov, 2017 Encounter for examination of eyes and vi ray without abnormal findings Z01.00 [facility] [place] [address] [place] [address] 31 Oct, 2017 Thyroid nodule E04.1 and Screening for b reast cancer Z12.31 [facility] [place] [address] [place] [address] 23 Oct, 2017 History of DVT (deep vein thrombosis) Z8 6.718 ; Thyroid nodule E04.1 and Gastroesophageal reflux disease, esophagitis presence not specified K21.9 [facility] [place] [address] [address] Oct, [facility] [place] [address] [address] Sep, [place] [address] [address] Aug, [place] [address] [address] Aug, [place] [address] [address] Aug, Acute pain of left shoulder M25.512 and Thyroid nodule E04.1 [place] [address] [address] July, Superior glenoid labrum lesion of left mehdi roy, subsequent encounter S43.432D [place] [address] [address] Jun, History of DVT (deep vein thrombosis) Z8 6.718 [place] [address] [address] Jun, History of DVT (deep vein thrombosis) Z8 6.718 [place] [address] [address] Jun, Impingement syndrome, shoulder, left M75 .42 [place] [address] [address] May, Subacromial bursitis of left shoulder saurabh int M75.52 [place] [address] [address] May, [address] [address] May, Hypertriglyceridemia E78.1 ; 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 buttermaker ( current) use of anticoagulants Z79.01 and Excessive daytime sleepiness G47.19 [place] [address] [address] May, History of DVT (deep vein thrombosis) Z8 6.718 ; Generalized anxiety disorder F41.1 ; Hypertriglyceridemia E78.1 ; 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 buttermaker (current) use of anticoagulants Z79.01 ; Subacromial bursitis of left shoulder joint M75.52 and Excessive daytime sleepiness G47.19 [place] [address] [address] May, [place] [address] [address] May, 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 buttermaker (current) use of anticoagulant s Z79.01 [place] [address] [address] Apr, long-term (current) 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 Z79.01 [place] [address] [address] Apr, 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 buttermaker (current) use of anticoagulant s Z79.01 [place] [address] [address] 20 Apr, 2017 long-term (current) 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 Z79.01 [place] [address] [address] Apr, [place] [address] [address] 16 Apr, 2017 long-term (current) 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 Z79.01 [place] [address] [address] 13 Apr, 2017 long-term (current) 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 Z79.01 [place] [address] [address] Apr, long-term (current) 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 Z79.01 [place] [address] [address] Apr, 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 buttermaker (current) use of anticoagulant s Z79.01 [place] [address] [address] 07 Apr, 2017 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 buttermaker (current) use of anticoagulant s Z79.01 [place] [address] [address] Apr, long-term (current) 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 Z79.01 [facility] [place] [address] [address] Mar, 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 buttermaker (current) use of anticoagulant s Z79.01 [facility] [place] [address] [address] Mar, [facility] [place] [address] [address] Mar, long-term (current) 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 Z79.01 [facility] [address] [id number] Jan, Dental examination Z01.20 [facility] [address] [id number] Jan, [facility] [place] [address] [address] Jan, long-term (current) 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 Z79.01 [facility] [place] [address] [address] Jan, History of DVT (deep vein thrombosis) Z8 6.718 [place] [address] [address] Jan, Generalized anxiety disorder F41.1 and P eripheral edema R60.9 [facility] [place] [address] [address] Nov, History of DVT (deep vein thrombosis) Z8 6.718 [facility] [place] [address] [address] Nov, 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 buttermaker (current) use of anticoagulant s Z79.01 [facility] [address] [facility] [id number] [address] [place] [address] Nov, Acute non-recurrent maxillar y sinusitis J01.00 [facility] [place] [address] [address] Oct, long-term (current) 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 Z79.01 [place] [address] [address] Oct, Personal history of venous thrombosis an d embolism Z86.718 [place] [address] [address] Sep, [place] [address] [address] Sep, Personal history of venous thrombosis an d embolism Z86.718 [place] [address] [address] Sep, 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 buttermaker (current) use of anticoagulant s Z79.01 [place] [address] [address] Sep, long-term (current) 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 Z79.01 [place] [address] [address] Sep, Generalized anxiety disorder F41.1 and H istory of DVT (deep vein thrombosis) Z86.718 [place] [address] [address] Aug, History of DVT (deep vein thrombosis) Z8 6.718 ; Generalized anxiety disorder F41.1 ; long-term (current) 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 Z79.01 ; Pelvic pain R10.2 ; Hypertriglyceridemia E78.1 ; Excessive daytime sleepiness G47.19 ; Colon cancer screening Z12.11 ; Screening for breast cancer Z12.39 ; Peripheral edema R60.9 and Gastroesophageal reflux disease, esophagitis presence not specified K21.9 [place] [address] [address] Aug, [place] [address] [address] July, [place] [address] [address] July, History of DVT (deep vein thrombosis) Z8 6.718 [place] [address] [address] Jun, Generalized anxiety disorder F41.1 [place] [address] [address] Jun, History of DVT (deep vein thrombosis) Z8 6.718 [place] [address] [address] Jun, History of DVT (deep vein thrombosis) Z8 6.718 [place] [address] [address] Jun, History of DVT (deep vein thrombosis) Z8 6.718 [place] [address] [address] Jun, History of DVT (deep vein thrombosis) Z8 6.718 [place] [address] [address] May, History of DVT (deep vein thrombosis) Z8 6.718 [place] [address] [address] May, long-term (current) 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 Z79.01 [place] [address] [address] May, 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 buttermaker (current) use of anticoagulant s Z79.01 [place] [address] [address] May, History of DVT (deep vein thrombosis) Z8 6.718 [facility] [address] [facility] [id number] [address] [place] [address] Apr, Bacterial conjunctivitis of left eye H10.9 and H/O motion sickness Z87.898 [facility] [place] [address] [address] Apr, History of DVT (deep vein thrombosis) Z8 6.718 [place] [address] [address] 23 Apr, 2016 History of DVT (deep vein thrombosis) Z8 6.718 [place] [address] [address] 15 Apr, 2016 History of DVT (deep vein thrombosis) Z8 6.718 [place] [address] [address] 14 Apr, 2016 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 buttermaker (current) use of anticoagulant s Z79.01 [place] [address] [address] Mar, [place] [address] [address] Mar, long-term (current) 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 Z79.01 [place] [address] [address] Mar, Hypertriglyceridemia E78.1 and 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 buttermaker (current) use of anticoagulants Z79.01 [place] [address] [address] Feb, 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 buttermaker (current) use of anticoagulant s Z79.01 [place] [address] [address] Feb, long-term (current) 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 Z79.01 [place] [address] [address] Feb, long-term (current) 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 Z79.01 [place] [address] [address] Dec, [place] [address] [address] Nov, [place] [address] [address] 13 Nov, 2015 History of DVT (deep vein thrombosis) Z8 6.718 ; Tremulousness R25.1 ; Generalized anxiety disorder F41.1 ; Peripheral edema R60.9 and Hypertriglyceridemia E78.1 [place] [address] [address] Oct, History of DVT (deep vein thrombosis) Z8 6.718 [place] [address] [address] Oct, [place] [address] [address] Sep, History of DVT (deep vein thrombosis) Z8 6.718 [place] [address] [address] Sep, 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 buttermaker (current) use of anticoagulant s Z79.01 [place] [address] [address] July, [place] [address] [address] July, 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 buttermaker (current) use of anticoagulant s Z79.01 [place] [address] [address] July, long-term (current) 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 Z79.01 [place] [address] [address] Jun, long-term (current) 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 Z79.01 [facility] [place] [address] [place] [address] Jun, Coccyx pain M53.3 ; Encounte r for therapeutic drug level monitoring Z51.81 and 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 buttermaker current use 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.01 [place] [address] [address] May, Abnormal mammogram R92.8 [facility] [place] [address] [place] [id number] [place] [address] May, [facility] [place] [address] [place] [id number] [place] [address] May, Acute vaginitis N76.0 and En counter for other screening for malignant neoplasm of breast Z12.39 [place] [address] [address] Apr, [place] [address] [place] [address] Apr, [place] [address] [address] Apr, Peripheral edema R60.9 [place] [address] [place] [address] Apr, 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 buttermaker (current) use of anticoagulant s Z79.01 [place] [address] [address] Apr, Peripheral edema R60.9 and 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 buttermaker (cu rrent) use of anticoagulants Z79.01 [place] [address] [address] Apr, 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 buttermaker (current) use of anticoagulant s Z79.01 [place] [address] [address] Apr, [place] [address] [address] Apr, long-term (current) 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 Z79.01 [place] [address] [address] Apr, Peripheral edema R60.9 [place] [address] [address] Mar, 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 buttermaker (current) use of anticoagulant s Z79.01 [place] [address] [address] Mar, long-term (current) 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 Z79.01 and Hypertriglyceridemia E78.1 [place] [address] [address] Mar, long-term (current) 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 Z79.01 [place] [address] [address] Mar, 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 buttermaker (current) use of anticoagulant s Z79.01 [place] [address] [address] Mar, [place] [address] [address] Mar, long-term (current) 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 Z79.01 ; Hypertriglyceridemia E78.1 ; Personal history of venous thrombosis and embolism Z86.718 and Lump R22.9 [place] [address] [address] Mar, Personal history of venous thrombosis an d embolism Z86.718 [place] [address] [address] Mar, Personal history of venous thrombosis an d embolism Z86.718 [place] [address] [address] Mar, [place] [address] [address] Dec, Personal history of venous thrombosis an d embolism Z86.718 [place] [address] [address] Dec, Personal history of venous thrombosis an d embolism V12.51 [place] [address] [address] 28 Nov, 2014 Personal history of venous thrombosis an d embolism V12.51 [place] [address] [address] 25 Nov, 2014 Personal history of venous thrombosis an d embolism V12.51 [place] [address] [address] 17 Nov, 2014 Personal history of venous thrombosis an d embolism V12.51 [place] [address] [address] Nov, Personal history of venous thrombosis an d embolism V12.51 [facility] [place] [address] [address] Nov, [facility] [place] [address] [address] Oct, Dysuria 788.1 [place] [address] [address] Oct, Personal history of venous thrombosis an d embolism V12.51 [facility] [place] [address] [address] Oct, [place] [address] [address] Oct, Personal history of venous thrombosis an d embolism V12.51 [place] [address] [address] Sep, Personal history of venous thrombosis an d embolism V12.51 [place] [address] [address] Sep, Personal history of venous thrombosis an d embolism V12.51 [place] [address] [address] Aug, Personal history of venous thrombosis an d embolism V12.51 [place] [address] [address] Aug, Personal history of venous thrombosis an d embolism V12.51 [place] [address] [address] Aug, Personal history of venous thrombosis an d embolism V12.51 [place] [address] [address] July, Generalized anxiety disorder 300.02 ; Ab dominal pain, left lower quadrant 789.04 and Personal history of venous thrombosis and embolism V12.51 [place] [address] [address] Jun, [facility] [address] [id number] [place] [address] Jun, [facility] [address] [id number] [place] [address] May, [facility] [address] [id number] [place] [address] May, [facility] [address] [id number] [place] [address] May, [facility] [address] [id number] [place] [address] May, [facility] [address] [id number] [place] [address] May, [facility] [address] [id number] [place] [address] May, [facility] [address] [id number] [place] [address] May, [facility] [address] [id number] [place] [address] May, [facility] [address] [id number] [place] [address] Apr, [facility] [address] [id number] [place] [address] Apr, [facility] [address] [id number] [place] [address] Apr, [facility] [address] [id number] [place] [address] Apr, [facility] [address] [id number] [place] [address] Apr, [facility] [address] [id number] [place] [address] Mar, [facility] [address] [id number] [place] [address] Mar, [facility] [address] [id number] [place] [address] Mar, [facility] [address] [id number] [place] [address] Mar, [facility] [address] [id number] [place] [address] Mar, [facility] [address] [id number] [place] [address] Mar, [facility] [address] [id number] [place] [address] Feb, [facility] [address] [id number] [place] [address] Feb, [facility] [address] [id number] [place] [address] Feb, [facility] [address] [id number] [place] [address] Feb, [facility] [address] [id number] [place] [address] Feb, [facility] [address] [id number] [place] [address] Feb, [facility] [address] [id number] [place] [address] Feb, [facility] [address] [id number] [place] [address] Feb, [facility] [address] [id number] [place] [address] Feb, [facility] [address] [id number] [place] [address] Feb, [facility] [address] [id number] [place] [address] Jan, [facility] [address] [id number] [place] [address] Jan, [facility] [address] [id number] [place] [address] Jan, [facility] [address] [id number] [place] [address] Jan, [facility] [address] [facility] [id number] [place] [address] Jan, [facility] [address] [id number] [place] [address] Jan, [facility] [address] [id number] [place] [address] Jan, [facility] [address] [id number] [place] [address] Jan, [facility] [address] [id number] [place] [address] Jan, [facility] [address] [id number] [place] [address] Jan, [facility] [address] [id number] [place] [address] Dec, [facility] [address] [id number] [place] [address] Dec, [facility] [address] [id number] [place] [address] Dec, [facility] [address] [id number] [place] [address] Dec, [facility] [address] [id number] [place] [address] Dec, [facility] [address] [id number] [place] [address] Dec, [facility] [address] [id number] [place] [address] Dec, [facility] [address] [facility] [id number] [place] [address] Dec, [facility] [address] [id number] [place] [address] Dec, [facility] [address] [id number] [place] [address] Dec, [facility] [address] [id number] [place] [address] Dec, 2013 [facility] [address] [id number] [place] [address] Dec, [facility] [address] [id number] [place] [address] Dec, 2013 [facility] [address] [id number] [place] [address] Dec, [facility] [address] [id number] [place] [address] Dec, [facility] [address] [id number] [place] [address] 30 Nov, 2013 [facility] [address] [id number] [place] [address] 30 Nov, 2013 [facility] [address] [id number] [place] [address] 26 Nov, 2013 [facility] [address] [id number] [place] [address] 26 Nov, 2013 [facility] [address] [id number] [place] [address] 24 Nov, 2013 [facility] [address] [id number] [place] [address] 24 Sep, 2013 [facility] [address] [id number] [place] [address] 23 Nov, 2013 [facility] [address] [id number] [place] [address] 23 Sep, 2013 [facility] [address] [id number] [place] [address] 18 Sep, 2013 [facility] [address] [id number] [place] [address] 18 Sep, 2013 [facility] [address] [id number] [place] [address] 17 Sep, 2013 [facility] [address] [id number] [place] [address] 17 Nov, 2013 [facility] [address] [facility] [id number] [facility] [address] 11 Nov, 2013 [facility] [address] [facility] [id number] [facility] [address] 11 Nov, 2013 [facility] [address] [id number] [facility] [address] 10 Nov, 2013 [facility] [address] [facility] [id number] [facility] [address] 10 Nov, 2013 [facility] [address] [facility] [id number] [facility] [address] 08 Nov, 2013 [facility] [address] [facility] [id number] [place] [address] 08 Nov, 2013 [facility] [address] [id number] [place] [address] Sep, 2013 [facility] [address] [id number] [place] [address] Sep, 2013 [facility] [address] [facility] [id number] [place] [address] Sep, 2013 [facility] [address] [id number] [place] [address] Sep, 2013 [facility] [address] [id number] [place] [address] Sep, 2013 [facility] [address] [id number] [place] [address] Sep, 2013 [facility] [address] [facility] [id number] [place] [address] Aug, [facility] [address] [id number] [place] [address] Aug, [facility] [address] [facility] [id number] [place] [address] Aug, [facility] [address] [id number] [place] [address] Aug, [facility] [address] [id number] [place] [address] 24 Aug, 2013 [facility] [address] [id number] [place] [address] Aug, [facility] [address] [facility] [id number] [place] [address] Aug, [facility] [address] [id number] [place] [address] Aug, [facility] [address] [id number] [place] [address] Aug, [facility] [address] [id number] [place] [address] Aug, [facility] [address] [id number] [place] [address] Aug, [facility] [address] [id number] [place] [address] July, [facility] [address] [id number] [place] [address] July, [facility] [address] [id number] [place] [address] Jun, [facility] [address] [id number] [place] [address] Jun, [facility] [address] [id number] [place] [address] Jun, [facility] [address] [id number] [place] [address] Jun, [facility] [address] [id number] [place] [address] Jun, [facility] [address] [id number] [place] [address] Jun, [facility] [address] [id number] [place] [address] 15 Jun, 2013 [facility] [address] [id number] [place] [address] 15 Jun, 2013 [facility] [address] [id number] [place] [address] 11 Jun, 2013 [facility] [address] [id number] [place] [address] 11 Jun, 2013 [facility] [address] [id number] [place] [address] 10 Jun, 2013 [facility] [address] [id number] [place] [address] Jun, [facility] [address] [id number] [place] [address] May, [facility] [address] [id number] [place] [address] May, [facility] [address] [id number] [place] [address] May, [facility] [address] [id number] [place] [address] May, [facility] [address] [id number] [place] [address] May, [facility] [address] [id number] [place] [address] May, [facility] [address] [id number] [place] [address] May, [facility] [address] [id number] [place] [address] May, [facility] [address] [id number] [place] [address] May, [facility] [address] [id number] [place] [address] May, [facility] [address] [id number] [place] [address] May, [facility] [address] [id number] [place] [address] May, [facility] [address] [id number] [place] [address] Apr, [facility] [address] [id number] [place] [address] Apr, [facility] [address] [id number] [place] [address] Apr, [facility] [address] [id number] [place] [address] Apr, [facility] [address] [id number] [place] [address] Apr, [facility] [address] [id number] [place] [address] Apr, [facility] [address] [id number] [place] [address] Apr, [facility] [address] [id number] [place] [address] Apr, [facility] [address] [id number] [place] [address] Apr, [facility] [address] [id number] [place] [address] Apr, [facility] [address] [id number] [place] [address] Apr, [facility] [address] [id number] [place] [address] Apr, [facility] [address] [id number] [place] [address] Apr, [facility] [address] [id number] [place] [address] Apr, [facility] [address] [id number] [place] [address] Apr, [facility] [address] [id number] [place] [address] Apr, [facility] [address] [id number] [place] [address] Apr, [facility] [address] [id number] [place] [address] Jan, [facility] [address] [id number] [place] [address] Jan, [facility] [address] [id number] [place] [address] 08 Jan, 2013 [facility] [address] [id number] [place] [address] Jan, [facility] [address] [id number] [place] [address] Jan, [facility] [address] [id number] [place] [address] Jan, [facility] [address] [id number] [place] [address] Jan, [facility] [address] [id number] [place] [address] Dec, [facility] [address] [id number] [place] [address] Dec, [facility] [address] [id number] [place] [address] Dec, [facility] [address] [id number] [place] [address] Nov, 2012 [facility] [address] [id number] [place] [address] 10 Nov, 2012 [facility] [address] [id number] [place] [address] 05 Nov, 2012 [facility] [address] [id number] [place] [address] 04 Nov, 2012 [facility] [address] [id number] [place] [address] Oct, [facility] [address] [id number] [place] [address] Oct, [facility] [address] [id number] [place] [address] Oct, [facility] [address] [id number] [facility] [address] Oct, [facility] [address] [id number] [place] [address] Oct, [facility] [address] [id number] [place] [address] Sep, [facility] [address] [id number] [place] [address] Sep, [facility] [address] [id number] [place] [address] Sep, [facility] [address] [id number] [place] [address] Sep, [facility] [address] [id number] [place] [address] Sep, [facility] [address] [id number] [place] [address] Sep, [facility] [address] [id number] [place] [address] Sep, [facility] [address] [id number] [place] [address] Aug, [facility] [address] [id number] [place] [address] Aug, [facility] [address] [id number] [place] [address] July, [facility] [address] [id number] [place] [address] Jun, [facility] [address] [id number] [place] [address] Jun, [facility] [address] [id number] [place] [address] Jun, [facility] [address] [id number] [place] [address] Apr, [facility] [address] [id number] [place] [address] Apr, [facility] [address] [id number] [place] [address] Apr, [facility] [address] [id number] [place] [address] Mar, [facility] [address] [id number] [place] [address] Mar, [facility] [address] [id number] [place] [address] Mar, [facility] [address] [id number] [place] [address] Mar, [facility] [address] [id number] [place] [address] Mar, [facility] [address] [id number] [place] [address] 14 Feb, 2012 [facility] [address] [id number] [place] [address] 14 Feb, 2012 [facility] [address] [id number] [place] [address] Jan, [facility] [address] [id number] [place] [address] Jan, [facility] [address] [id number] [place] [address] 13 Jan, 2012 [facility] [address] [id number] [place] [address] 13 Jan, 2012 [facility] [address] [id number] [place] [address] Jan, [facility] [address] [id number] [place] [address] 07 Jan, 2012 [facility] [address] [id number] [place] [address] 06 Jan, 2012 [facility] [address] [id number] [place] [address] Dec, [facility] [address] [facility] [id number] [place] [address] Dec, [facility] [address] [id number] [place] [address] Dec, [facility] [address] [id number] [place] [address] Dec, [facility] [address] [id number] [place] [address] Dec, [facility] [address] [id number] [place] [address] Dec, [facility] [address] [id number] [place] [address] Dec, [facility] [address] [id number] [place] [address] Dec, [facility] [address] [id number] [place] [address] Dec, [facility] [address] [id number] [place] [address] Dec, [facility] [address] [id number] [place] [address] Oct, [facility] [address] [id number] [place] [address] Oct, [facility] [address] [id number] [place] [address] Aug, [facility] [address] [id number] [place] [address] Aug, [facility] [address] [id number] [place] [address] July, [facility] [address] [id number] [place] [address] Jun, [facility] [address] [id number] [place] [address] Jun, [facility] [address] [id number] [place] [address] May, [facility] [address] [id number] [place] [address] Apr, [facility] [address] [id number] [place] [address] Apr, [facility] [address] [id number] [place] [address] Mar, [facility] [address] [id number] [place] [address] Mar, [facility] [address] [id number] [place] [address] Feb, [facility] [address] [id number] [place] [address] 15 Feb, 2011 [facility] [address] [id number] [place] [address] Feb, [facility] [address] [id number] [place] [address] Feb, [facility] [address] [id number] [place] [address] Jan, [facility] [address] [id number] [place] [address] 17 Dec, 2010 [facility] [address] [id number] [place] [address] 08 Feb, 2010 [facility] [address] [id number] [place] [address] Feb, [facility] [address] [id number] [place] [address] Feb, [facility] [address] [id number] [place] [address] Feb, [facility] [address] [id number] [place] [address] 15 Dec, 2009 [facility] [address] [id number] [place] [address] Dec, [facility] [place] [address] [id number] [place] [address] Oct, [facility] [place] [address] [id number] [place] [address] Jun, [facility] [place] [address] [id number] [place] [address] Feb, [facility] [place] [address] [id number] [place] [address] Feb, [facility] [place] [address] [id number] [place] [address] Feb, [facility] [place] [address] [id number] [place] [address] Dec, IMMUNIZATIONS No Known Immunizations SOCIAL HISTORY [...] 1985, 1987 Surgical History cholecystectomy Surgical History [place] Filter 06/2009 Surgical History Left leg exploratory surgery r/t clot Surgical History left shoulder surgery 09/14/17 Surgical History lap band removed 12/2017 Surgical History gastic sleeve 01/2018 Surgical History Back surgery 2019 Surgical History Partial Thyroidectomy - left side 2019 Hospitalization History Ruptured Ovarian Cyst with abd bleed ing 11/2009 Hospitalization History Broken Back 06/2018
--- OUTSIDE RECORDS SUMMARY | 2019-10-19 12:51 | XMS REPORT ---
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 Name Role Phone JAMI Donohue Unavailable PROBLEMS Type Condition ICD9-CM Code KJR28-ON Code Onset Dates Condition S tatus SNOMED Code Problem Thyroid follicular adenoma D34 Act phylicia 013687847 Problem History of DVT (deep vein thrombosis) Z86.718 Active 520401511 Problem Factor V Leiden D68.51 Active 3070 57641 Problem skilled nursing (current) use of anticoagulants Z79.01 Active 166577207 Problem Hypertriglyceridemia E78.1 Active 263895897 Problem 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 Active 553390954 Problem Pelvic pain R10.2 Active 07763461 Problem Peripheral edema R60.9 Active 271 508936 Problem Moderate episode of recurrent major depressive disorder F33.1 Active 737952053 Problem Presence of IVC filter Z95.828 Active 544793960 Problem Vitamin D deficiency E55.9 Active 99273235 Problem Generalized anxiety disorder F41.1 A ctive 037427318 Problem Excessive daytime sleepiness G47.19 A ctive 272022793547 Problem Gastroesophageal reflux disease, esophagitis pre sence not specified K21.9 Active 451320354 Problem Thyroid nodule E04.1 Active 44804 5005 Problem Morbid obesity E66.01 Active 90998 6002 ALLERGIES No Information ENCOUNTERS Encounter Location Date Diagnosis [facility] [id number] [place] [address] 12 Apr, 2019 Back pain with history of spinal surgery M54.9 [facility] [address] [address] 11 Apr, 2019 [facility] [id number] [place] [address] 10 Apr, 2019 Gastroenteritis K52.9 ; Back pain with h istory of spinal surgery M54.9 and Dermatofibroma of lower leg, unspecified laterality D23.70 [place] [address] [address] Mar, [place] [address] [address] Jan, [place] [address] [address] Jan, [place] [address] [address] Dec, Encounter for weight management Z76.89 [place] [address] [address] Dec, Encounter for weight management Z76.89 a nd Screening mammogram, encounter for Z12.31 [place] [address] [address] Nov, Encounter for weight management Z76.89 [place] [address] [address] Nov, Thyroid nodule E04.1 [place] [address] [address] Nov, Thyroid nodule E04.1 [place] [address] [address] Nov, Thyroid nodule E04.1 [place] [address] [address] Oct, Syncope, unspecified syncope type R55 an d Encounter for weight management Z76.89 [place] [address] [address] Oct, Morbid obesity E66.01 [place] [address] [address] Oct, Hypertriglyceridemia E78.1 [place] [address] [address] Oct, [facility] [address] [address] Oct, Hypertriglyceridemia E78.1 [facility] [address] [address] Sep, Hypertriglyceridemia E78.1 and Vitamin D deficiency E55.9 [facility] [address] [address] Sep, [facility] [address] [address] Sep, Morbid obesity E66.01 ; Moderate episode of recurrent major depressive disorder F33.1 ; Hypertriglyceridemia E78.1 and Vitamin D deficiency E55.9 [facility] [address] [address] Aug, [facility] [address] [address] July, [facility] [address] [address] July, [facility] [address] [address] Jun, [facility] [address] [address] Jun, [facility] [address] [address] Jun, Closed compression fracture of L3 lumbar vertebra with routine healing, subsequent encounter S32.030D and Drug-induced constipation K59.03 [facility] [address] [address] Jun, [facility] [address] [address] Jun, [facility] [address] [address] Apr, [facility] [address] [address] Apr, Morbid obesity E66.01 [facility] [address] [address] 12 Apr, 2018 Morbid obesity E66.01 ; Hypertriglycerid emia E78.1 ; Gastroesophageal reflux disease, esophagitis presence not specified K21.9 and Joint pain M25.50 [facility] [address] [address] Feb, [facility] [address] [address] Feb, [facility] [address] [facility] [id number] [address] [place] [address] Jan, Acute bacterial conjunctivit is H10.30 [place] [address] [address] 08 Dec, 2017 [place] [address] [address] 04 Dec, 2017 [place] [address] [address] 17 Nov, 2017 [place] [address] [address] 07 Nov, 2017 Obstructive sleep apnea G47.33 ; Morbid obesity E66.01 and Gastroesophageal reflux disease, esophagitis presence not specified K21.9 [facility] [address] [facility] [place] [id number] 06 Nov, 2017 Encounter for examination of eyes and vi ray without abnormal findings Z01.00 [place] [address] [address] 31 Oct, 2017 Thyroid nodule E04.1 and Screening for b reast cancer Z12.[address] [address] 23 Oct, 2017 History of DVT (deep vein thrombosis) Z8 6.718 ; Thyroid nodule E04.1 and Gastroesophageal reflux disease, esophagitis presence not specified K21.9 [place] [address] [address] Oct, [place] [address] [address] Sep, [place] [address] [address] Aug, [place] [address] [address] Aug, [place] [address] [address] Aug, Acute pain of left shoulder M25.512 and Thyroid nodule E04.[address] [address] July, Superior glenoid labrum lesion of left mehdi roy, subsequent encounter S43.432D [place] [address] [address] Jun, History of DVT (deep vein thrombosis) Z8 6.718 [place] [address] [address] Jun, History of DVT (deep vein thrombosis) Z8 6.718 [place] [address] [address] Jun, Impingement syndrome, shoulder, left M75 .42 [place] [address] [address] May, Subacromial bursitis of left shoulder saurabh int M75.52 [place] [address] [address] May, [address] [address] May, Hypertriglyceridemia E78.1 ; skilled nursing ( current) use of anticoagulants Z79.01 and Excessive daytime sleepiness G47.19 [place] [address] [address] May, History of DVT (deep vein thrombosis) Z8 6.718 ; Generalized anxiety disorder F41.1 ; Hypertriglyceridemia E78.1 ; 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 ; Subacromial bursitis of left shoulder joint M75.52 and Excessive daytime sleepiness G47.19 [place] [address] [address] May, [place] [address] [address] May, skilled nursing (current) use of anticoagulant s Z79.01 [place] [address] [address] 23 Apr, 2017 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.01 [place] [address] [address] Apr, skilled nursing (current) use of anticoagulant s Z79.01 [place] [address] [address] Apr, 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 Z79.01 [place] [address] [address] Apr, [place] [address] [address] 16 Apr, 2017 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 Z79.01 [place] [address] [address] 13 Apr, 2017 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 Z79.01 [place] [address] [address] Apr, skilled nursing (current) use of anticoagulant s Z79.01 [place] [address] [address] Apr, 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 Z79.01 [place] [address] [address] 07 Apr, 2017 skilled nursing (current) use of anticoagulant s Z79.01 [facility] [address] [address] Apr, skilled nursing (current) use of anticoagulant s Z79.01 [facility] [address] [address] Mar, skilled nursing (current) use of anticoagulant s Z79.01 [facility] [address] [address] Mar, [facility] [address] [address] Mar, skilled nursing (current) use of anticoagulant s Z79.01 [facility] [address] [id number] Jan, Dental examination Z01.20 [facility] [address] [id number] Jan, [facility] [address] [address] Jan, skilled nursing (current) use of anticoagulant s Z79.01 [place] [address] [address] Jan, History of DVT (deep vein thrombosis) Z8 6.718 [place] [address] [address] Jan, Generalized anxiety disorder F41.1 and P eripheral edema R60.9 [facility] [address] [address] Nov, History of DVT (deep vein thrombosis) Z8 6.718 [place] [address] [address] Nov, skilled nursing (current) use of anticoagulant s Z79.01 [facility] [address] [facility] [id number] [address] [place] [address] 09 Nov, 2016 Acute non-recurrent maxillar y sinusitis J01.00 [place] [address] [address] Oct, skilled nursing (current) use of anticoagulant s Z79.01 [place] [address] [address] Oct, Personal history of venous thrombosis an d embolism Z86.718 [address] [address] [address] Sep, [place] [address] [address] Sep, Personal history of venous thrombosis an d embolism Z86.718 [place] [address] [address] Sep, 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 [place] [address] [address] Sep, skilled nursing (current) use of anticoagulant s Z79.01 [place] [address] [address] Sep, Generalized anxiety disorder F41.1 and H istory of DVT (deep vein thrombosis) Z86.718 [address] [address] [address] Aug, History of DVT (deep vein thrombosis) Z8 6.718 ; Generalized anxiety disorder F41.1 ; skilled nursing (current) use of anticoagulants Z79.01 ; Pelvic pain R10.2 ; Hypertriglyceridemia E78.1 ; Excessive daytime sleepiness G47.19 ; Colon cancer screening Z12.11 ; Screening for breast cancer Z12.39 ; Peripheral edema R60.9 and Gastroesophageal reflux disease, esophagitis presence not specified K21.9 [place] [address] [address] Aug, [place] [address] [address] July, [place] [address] [address] July, History of DVT (deep vein thrombosis) Z8 6.718 [place] [address] [address] Jun, Generalized anxiety disorder F41.1 [address] [address] [address] Jun, History of DVT (deep vein thrombosis) Z8 6.718 [address] [address] Jun, History of DVT (deep vein thrombosis) Z8 6.718 [address] [address] Jun, History of DVT (deep vein thrombosis) Z8 6.718 [address] [address] Jun, History of DVT (deep vein thrombosis) Z8 6.718 [address] [address] May, History of DVT (deep vein thrombosis) Z8 6.718 [address] [address] [address] May, 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 Z79.01 [address] [address] [address] May, skilled nursing (current) use of anticoagulant s Z79.01 [address] [place] [address] May, History of DVT (deep vein thrombosis) Z8 6.718 [facility] [address] [facility] [id number] [address] [place] [address] Apr, Bacterial conjunctivitis of left eye H10.9 and H/O motion sickness Z87.898 [address] [address] Apr, History of DVT (deep vein thrombosis) Z8 6.718 [address] [address] 23 Apr, 2016 History of DVT (deep vein thrombosis) Z8 6.718 [facility] [address] [address] 15 Apr, 2016 History of DVT (deep vein thrombosis) Z8 6.718 [address] [place] [address] 14 Apr, 2016 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 Z79.01 [address] [address] [address] Mar, [address] [address] [address] Mar, skilled nursing (current) use of anticoagulant s Z79.01 [address] [address] Mar, Hypertriglyceridemia E78.1 and skilled nursing (current) use of anticoagulants Z79.01 [address] [address] Feb, skilled nursing (current) use of anticoagulant s Z79.01 [address] [address] [address] Feb, skilled nursing (current) use of anticoagulant s Z79.01 [address] [address] Feb, 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 Z79.01 [address] [address] Dec, [address] [address] [address] Nov, [address] [address] [address] Nov, History of DVT (deep vein thrombosis) Z8 6.718 ; Tremulousness R25.1 ; Generalized anxiety disorder F41.1 ; Peripheral edema R60.9 and Hypertriglyceridemia E78.1 [address] [address] [address] Oct, History of DVT (deep vein thrombosis) Z8 6.718 [address] [address] [address] Oct, [address] [address] [address] Sep, History of DVT (deep vein thrombosis) Z8 6.718 [address] [address] [address] Sep, skilled nursing (current) use of anticoagulant s Z79.01 [address] [address] [address] July, [address] [address] [address] July, 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 Z79.01 [address] [address] [address] July, skilled nursing (current) use of anticoagulant s Z79.01 [address] [place] [address] Jun, 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 Z79.01 [facility] [address] [address] Jun, Coccyx pain M53.3 ; Encounte r for therapeutic drug level monitoring Z51.81 and skilled nursing current use 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.[address] [address] May, Abnormal mammogram R92.8 [facility] [place] [id number] [place] [address] May, [facility] [address] [place] [address] May, Acute vaginitis N76.0 and En counter for other screening for malignant neoplasm of breast Z12.39 [address] [address] [address] Apr, [address] [address] [address] Apr, [place] [address] [address] Apr, Peripheral edema R60.9 [address] [address] [address] Apr, skilled nursing (current) use of anticoagulant s Z79.01 [address] [address] [address] Apr, Peripheral edema R60.9 and skilled nursing (cu rrent) use of anticoagulants Z79.01 [address] [address] [address] Apr, skilled nursing (current) use of anticoagulant s Z79.01 [address] [address] [address] Apr, [place] [address] [address] Apr, 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 Z79.01 [address] [address] [address] Apr, Peripheral edema R60.9 [address] [address] [address] Mar, 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 Z79.01 [address] [address] [address] Mar, 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 Z79.01 and Hypertriglyceridemia E78.1 [address] [address] [address] Mar, 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 Z79.01 [address] [address] [address] Mar, skilled nursing (current) use of anticoagulant s Z79.01 [place] [address] [address] Mar, [place] [address] [address] Mar, skilled nursing (current) use of anticoagulant s Z79.01 ; Hypertriglyceridemia E78.1 ; Personal history of venous thrombosis and embolism Z86.718 and Lump R22.9 [place] [address] [address] Mar, Personal history of venous thrombosis an d embolism Z86.718 [place] [address] [address] Mar, Personal history of venous thrombosis an d embolism Z86.718 [place] [address] [address] Mar, [place] [address] [address] Dec, Personal history of venous thrombosis an d embolism Z86.718 [place] [address] [address] Dec, Personal history of venous thrombosis an d embolism V12.51 [place] [address] [address] Nov, Personal history of venous thrombosis an d embolism V12.51 [place] [address] [address] 25 Nov, 2014 Personal history of venous thrombosis an d embolism V12.51 [place] [address] [address] 17 Nov, 2014 Personal history of venous thrombosis an d embolism V12.51 [place] [id number] [place] [address] Nov, Personal history of venous thrombosis an d embolism V12.51 [facility] [id number] [place] [address] Nov, [facility] [address] [address] Oct, Dysuria 788.1 [facility] [address] [address] Oct, Personal history of venous thrombosis an d embolism V12.51 [facility] [address] [address] Oct, [facility] [address] [address] Oct, Personal history of venous thrombosis an d embolism V12.51 [place] [address] [address] Sep, Personal history of venous thrombosis an d embolism V12.51 [place] [id number] [place] [address] Sep, Personal history of venous thrombosis an d embolism V12.51 [place] [address] [address] Aug, Personal history of venous thrombosis an d embolism V12.51 [place] [address] [address] Aug, Personal history of venous thrombosis an d embolism V12.51 [place] [address] [address] Aug, Personal history of venous thrombosis an d embolism V12.51 [place] [id number] [place] [address] July, Generalized anxiety disorder 300.02 ; Ab dominal pain, left lower quadrant 789.04 and Personal history of venous thrombosis and embolism V12.51 [place] [address] [address] [place] [address] 14 Jun, 2014 [facility] [address] [facility] [id number] [place] [address] Jun, [facility] [address] [id number] [place] [address] May, [facility] [address] [id number] [place] [address] May, [facility] [address] [id number] [place] [address] May, [facility] [address] [facility] [id number] [place] [address] May, [facility] [address] [id number] [place] [address] May, [facility] [address] [id number] [place] [address] May, [facility] [address] [id number] [place] [address] May, [facility] [address] [id number] [place] [address] May, [facility] [address] [id number] [place] [address] Apr, [facility] [address] [id number] [place] [address] Apr, [facility] [address] [id number] [place] [address] Apr, [facility] [address] [facility] [id number] [place] [address] Apr, [facility] [address] [id number] [place] [address] Apr, [facility] [address] [id number] [place] [address] Mar, [facility] [address] [id number] [place] [address] Mar, [facility] [address] [id number] [place] [address] Mar, [facility] [address] [id number] [place] [address] Mar, [facility] [address] [id number] [place] [address] Mar, [facility] [address] [id number] [place] [address] Mar, [facility] [address] [id number] [place] [address] Feb, [facility] [address] [id number] [place] [address] Feb, [facility] [address] [id number] [place] [address] Feb, [facility] [address] [id number] [place] [address] Feb, [facility] [address] [id number] [place] [address] Feb, [facility] [address] [id number] [place] [address] Feb, [facility] [address] [id number] [place] [address] Feb, [facility] [address] [id number] [place] [address] Feb, [facility] [address] [id number] [place] [address] Feb, [facility] [address] [id number] [place] [address] Feb, [facility] [address] [id number] [place] [address] Jan, [facility] [address] [id number] [place] [address] Jan, [facility] [address] [id number] [place] [address] Jan, [facility] [address] [facility] [id number] [place] [address] Jan, [facility] [address] [id number] [place] [address] Jan, [facility] [address] [id number] [place] [address] Jan, [facility] [address] [id number] [place] [address] Jan, [facility] [address] [id number] [place] [address] Jan, [facility] [address] [id number] [place] [address] Jan, [facility] [address] [id number] [place] [address] Jan, [facility] [address] [id number] [place] [address] Dec, [facility] [address] [id number] [place] [address] Dec, [facility] [address] [id number] [place] [address] Dec, [facility] [address] [id number] [place] [address] Dec, [facility] [address] [id number] [place] [address] Dec, [facility] [address] [facility] [id number] [place] [address] Dec, [facility] [address] [id number] [place] [address] Dec, [facility] [address] [id number] [place] [address] Dec, [facility] [address] [id number] [place] [address] Dec, [facility] [address] [id number] [place] [address] 10 Dec, 2013 [facility] [address] [id number] [place] [address] Dec, [facility] [address] [id number] [place] [address] Dec, [facility] [address] [id number] [place] [address] Dec, [facility] [address] [id number] [place] [address] Dec, [facility] [address] [id number] [place] [address] Dec, [facility] [address] [id number] [place] [address] 30 Nov, 2013 [facility] [address] [id number] [place] [address] 30 Sep, 2013 [facility] [address] [id number] [place] [address] 26 Sep, 2013 [facility] [address] [id number] [place] [address] 26 Sep, 2013 [facility] [address] [id number] [place] [address] 24 Sep, 2013 [facility] [address] [id number] [place] [address] 24 Sep, 2013 [facility] [address] [id number] [place] [address] 23 Sep, 2013 [facility] [address] [id number] [place] [address] 23 Sep, 2013 [facility] [address] [id number] [place] [address] 18 Sep, 2013 [facility] [address] [id number] [place] [address] 18 Sep, 2013 [facility] [address] [id number] [place] [address] 17 Sep, 2013 [facility] [address] [id number] [place] [address] 17 Nov, 2013 [facility] [address] [facility] [id number] [facility] [place] [address] 11 Nov, 2013 [facility] [address] [facility] [id number] [place] [address] 11 Nov, 2013 [facility] [address] [id number] [facility] [place] [address] 10 Nov, 2013 [facility] [address] [facility] [id number] [place] [address] 10 Nov, 2013 [facility] [address] [id number] [place] [address] 08 Nov, 2013 [facility] [address] [id number] [place] [address] 08 Nov, 2013 [facility] [address] [id number] [place] [address] Sep, 2013 [facility] [address] [facility] [id number] [place] [address] Sep, 2013 [facility] [address] [id number] [place] [address] Sep, 2013 [facility] [address] [id number] [place] [address] Sep, 2013 [facility] [address] [id number] [place] [address] Sep, 2013 [facility] [address] [facility] [id number] [place] [address] Sep, 2013 [facility] [address] [id number] [place] [address] Aug, [facility] [address] [facility] [id number] [place] [address] Aug, [facility] [address] [id number] [place] [address] Aug, 2013 [facility] [address] [facility] [id number] [facility] [place] [address] Aug, [facility] [address] [facility] [id number] [facility] [place] [address] Aug, [facility] [address] [facility] [id number] [facility] [place] [address] Aug, [facility] [address] [id number] [place] [address] Aug, [facility] [address] [id number] [facility] [place] [address] Aug, [facility] [address] [facility] [id number] [facility] [place] [address] Aug, [facility] [address] [id number] [place] [address] Aug, [facility] [address] [id number] [place] [address] Aug, [facility] [address] [id number] [place] [address] July, [facility] [address] [id number] [place] [address] July, [facility] [address] [id number] [place] [address] Jun, [facility] [address] [id number] [place] [address] Jun, [facility] [address] [id number] [place] [address] Jun, [facility] [address] [facility] [id number] [place] [address] Jun, [facility] [address] [id number] [place] [address] Jun, [facility] [address] [id number] [place] [address] Jun, [facility] [address] [id number] [place] [address] 15 Jun, 2013 [facility] [address] [id number] [place] [address] 15 Jun, 2013 [facility] [address] [facility] [id number] [place] [address] 11 Jun, 2013 [facility] [address] [id number] [place] [address] 11 Jun, 2013 [facility] [address] [id number] [place] [address] 10 Jun, 2013 [facility] [address] [id number] [place] [address] 10 Jun, 2013 [facility] [address] [id number] [place] [address] 25 May, 2013 [facility] [address] [id number] [place] [address] May, [facility] [address] [id number] [place] [address] May, [facility] [address] [id number] [place] [address] May, [facility] [address] [id number] [place] [address] May, [facility] [address] [id number] [place] [address] May, [facility] [address] [id number] [place] [address] May, [facility] [address] [id number] [place] [address] May, [facility] [address] [id number] [place] [address] May, [facility] [address] [id number] [place] [address] May, [facility] [address] [id number] [place] [address] May, [facility] [address] [id number] [place] [address] May, [facility] [address] [id number] [place] [address] Apr, [facility] [address] [id number] [place] [address] Apr, [facility] [address] [id number] [place] [address] Apr, [facility] [address] [id number] [place] [address] Apr, [facility] [address] [id number] [place] [address] Apr, [facility] [address] [id number] [place] [address] Apr, [facility] [address] [id number] [place] [address] Apr, [facility] [address] [id number] [place] [address] Apr, [facility] [address] [id number] [place] [address] Apr, [facility] [address] [id number] [place] [address] Apr, [facility] [address] [id number] [place] [address] Apr, [facility] [address] [id number] [place] [address] Apr, [facility] [address] [id number] [place] [address] Apr, [facility] [address] [id number] [place] [address] Apr, [facility] [address] [id number] [place] [address] Apr, [facility] [address] [id number] [place] [address] Apr, [facility] [address] [id number] [place] [address] Apr, [facility] [address] [id number] [place] [address] Jan, [facility] [address] [id number] [place] [address] Jan, [facility] [address] [id number] [place] [address] Jan, [facility] [address] [id number] [place] [address] Jan, [facility] [address] [id number] [place] [address] Jan, [facility] [address] [id number] [place] [address] Jan, [facility] [address] [id number] [place] [address] Jan, [facility] [address] [id number] [place] [address] Dec, [facility] [address] [id number] [place] [address] Dec, [facility] [address] [id number] [place] [address] Dec, [facility] [address] [id number] [place] [address] 10 Nov, 2012 [facility] [address] [id number] [place] [address] 10 Nov, 2012 [facility] [address] [id number] [place] [address] 05 Nov, 2012 [facility] [address] [id number] [place] [address] 04 Nov, 2012 [facility] [address] [id number] [place] [address] Oct, [facility] [address] [id number] [place] [address] Oct, [facility] [address] [facility] [id number] [facility] [place] [address] Oct, [facility] [address] [facility] [id number] [facility] [place] [address] Oct, [facility] [address] [id number] [facility] [place] [address] Oct, [facility] [address] [id number] [facility] [place] [address] Sep, [facility] [address] [facility] [id number] [facility] [place] [address] Sep, [facility] [address] [id number] [facility] [place] [address] Sep, [facility] [address] [id number] [place] [address] Sep, [facility] [address] [id number] [facility] [place] [address] Sep, [facility] [address] [id number] [facility] [place] [address] Sep, [facility] [address] [id number] [place] [address] Sep, [facility] [address] [id number] [place] [address] Aug, [facility] [address] [id number] [place] [address] Aug, [facility] [address] [id number] [facility] [place] [address] July, [facility] [address] [id number] [place] [address] Jun, [facility] [address] [id number] [place] [address] Jun, [facility] [address] [id number] [place] [address] Jun, [facility] [address] [id number] [place] [address] Apr, [facility] [address] [id number] [place] [address] Apr, [facility] [address] [id number] [place] [address] Apr, [facility] [address] [id number] [place] [address] Mar, [facility] [address] [id number] [place] [address] Mar, [facility] [address] [id number] [place] [address] Mar, [facility] [address] [id number] [place] [address] Mar, [facility] [address] [id number] [place] [address] Mar, [facility] [address] [id number] [place] [address] 14 Feb, 2012 [facility] [address] [id number] [place] [address] 14 Feb, 2012 [facility] [address] [id number] [place] [address] Jan, [facility] [address] [id number] [place] [address] 13 Jan, 2012 [facility] [address] [id number] [place] [address] 13 Jan, 2012 [facility] [address] [id number] [place] [address] 13 Jan, 2012 [facility] [address] [id number] [place] [address] 07 Jan, 2012 [facility] [address] [id number] [place] [address] 07 Jan, 2012 [facility] [address] [id number] [place] [address] Jan, [facility] [address] [id number] [place] [address] Dec, [facility] [address] [id number] [place] [address] Dec, [facility] [address] [id number] [place] [address] Dec, [facility] [address] [id number] [place] [address] Dec, [facility] [address] [id number] [place] [address] Dec, [facility] [address] [id number] [place] [address] Dec, [facility] [address] [id number] [place] [address] Dec, [facility] [address] [id number] [place] [address] Dec, [facility] [address] [id number] [place] [address] Dec, [facility] [address] [id number] [place] [address] Dec, [facility] [address] [id number] [place] [address] Oct, [facility] [address] [id number] [place] [address] Oct, [facility] [address] [id number] [place] [address] Aug, [facility] [address] [id number] [place] [address] Aug, [facility] [address] [id number] [place] [address] July, [facility] [address] [id number] [place] [address] Jun, [facility] [address] [id number] [place] [address] Jun, [facility] [address] [id number] [place] [address] May, [facility] [address] [id number] [place] [address] Apr, [facility] [address] [id number] [place] [address] Apr, [facility] [id number] [place] [address] Mar, [facility] [address] [id number] [place] [address] Mar, [facility] [id number] [place] [address] Feb, [facility] [id number] [place] [address] 15 Feb, 2011 [facility] [id number] [place] [address] Feb, [facility] [address] [id number] [place] [address] Feb, [facility] [id number] [place] [address] Jan, [facility] [address] [id number] [place] [address] 17 Dec, 2010 [facility] [id number] [place] [address] 08 Feb, 2010 [facility] [address] [id number] [place] [address] Feb, [facility] [id number] [place] [address] Feb, [facility] [address] [id number] [place] [address] Feb, [facility] [address] [id number] [place] [address] 15 Dec, 2009 [facility] [address] [id number] [place] [address] Dec, [facility] [address] [id number] [place] [address] Oct, [facility] [address] [id number] [place] [address] Jun, [facility] [address] [id number] [place] [address] Feb, [facility] [address] [id number] [place] [address] Feb, [facility] [address] [id number] [place] [address] Feb, [facility] [address] [id number] [place] [address] Dec, IMMUNIZATIONS No Known Immunizations SOCIAL HISTORY [...] 1985, 1987 Surgical History cholecystectomy Surgical History Foster Filter 06/2009 Surgical History Left leg exploratory surgery r/t clot Surgical History left shoulder surgery 09/14/17 Surgical History lap band removed 12/2017 Surgical History gastic sleeve 01/2018 Surgical History Back surgery 2019 Surgical History Partial Thyroidectomy - left side 2019 Hospitalization History Ruptured Ovarian Cyst with abd bleed ing 11/2009 Hospitalization History Broken Back 06/2018
--- OUTSIDE RECORDS SUMMARY | 2019-10-19 12:51 | XMS REPORT ---
Author Author Mary Jane Mcginnis Doctor Organization [facility] Address Unknown Phone Unavailable Care Team Providers Care Blood Bank Coordinator Name Role Phone Migration, Doctor Unavailable Unavailable PROBLEMS Type Condition ICD9-CM Code RAX08-GC Code Onset Dates Condition S tatus SNOMED Code Problem Thyroid follicular adenoma D34 Act phylicia 134828729 Problem History of DVT (deep vein thrombosis) Z86.718 Active 054287675 Problem Factor V Leiden D68.51 Active 3070 69184 Problem FDC (current) use of anticoagulants Z79.01 Active 641699754 Problem Hypertriglyceridemia E78.1 Active 706885591 Problem 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 Active 230749023 Problem Pelvic pain R10.2 Active 63139512 Problem Peripheral edema R60.9 Active 271 815733 Problem Moderate episode of recurrent major depressive disorder F33.1 Active 917506298 Problem Presence of IVC filter Z95.828 Active 466963160 Problem Vitamin D deficiency E55.9 Active 15112668 Problem Generalized anxiety disorder F41.1 A ctive 054925968 Problem Excessive daytime sleepiness G47.19 A ctive 935509253669 Problem Gastroesophageal reflux disease, esophagitis pre sence not specified K21.9 Active 329005976 Problem Thyroid nodule E04.1 Active 71780 5005 Problem Morbid obesity E66.01 Active 48850 6002 ALLERGIES No Information ENCOUNTERS Encounter Location Date Diagnosis [place] [id number] [place] [address] Apr, Back pain with history of spinal surgery M54.9 [place] [address] [address] Apr, [place] [address] [address] 10 Apr, 2019 Gastroenteritis K52.9 ; Back pain with h istory of spinal surgery M54.9 and Dermatofibroma of lower leg, unspecified laterality D23.70 [place] [address] [place] [address] Mar, [place] [address] [address] Jan, [place] [address] [address] Jan, [place] [address] [address] Dec, Encounter for weight management Z76.89 [place] [address] [address] Dec, Encounter for weight management Z76.89 a nd Screening mammogram, encounter for Z12.31 [place] [address] [address] Nov, Encounter for weight management Z76.89 [place] [address] [address] Nov, Thyroid nodule E04.1 [place] [address] [address] Nov, Thyroid nodule E04.1 [place] [address] [address] Nov, Thyroid nodule E04.1 [place] [address] [address] Oct, Syncope, unspecified syncope type R55 an d Encounter for weight management Z76.89 [place] [address] [address] Oct, Morbid obesity E66.01 [place] [address] [address] Oct, Hypertriglyceridemia E78.1 [place] [address] [address] Oct, [place] [address] [address] Oct, Hypertriglyceridemia E78.1 [facility] [address] [address] Sep, Hypertriglyceridemia E78.1 and Vitamin D deficiency E55.9 [facility] [address] [address] Sep, [facility] [address] [address] Sep, Morbid obesity E66.01 ; Moderate episode of recurrent major depressive disorder F33.1 ; Hypertriglyceridemia E78.1 and Vitamin D deficiency E55.9 [facility] [address] [address] Aug, [facility] [address] [address] July, [facility] [address] [address] July, [facility] [address] [address] Jun, [facility] [address] [address] Jun, [facility] [address] [address] Jun, Closed compression fracture of L3 lumbar vertebra with routine healing, subsequent encounter S32.030D and Drug-induced constipation K59.03 [facility] [address] [address] Jun, [facility] [address] [address] Jun, [facility] [address] [address] Apr, [facility] [address] [address] Apr, Morbid obesity E66.01 [facility] [address] [address] 12 Apr, 2018 Morbid obesity E66.01 ; Hypertriglycerid emia E78.1 ; Gastroesophageal reflux disease, esophagitis presence not specified K21.9 and Joint pain M25.50 [facility] [id number] [place] [address] Feb, [facility] [id number] [place] [address] Feb, [facility] [address] [facility] [id number] [address] [address] Jan, Acute bacterial conjunctivit is H10.30 [facility] [address] [address] 08 Dec, 2017 [facility] [address] [address] 04 Dec, 2017 [facility] [address] [place] [address] 17 Nov, 2017 [facility] [address] [address] 07 Nov, 2017 Obstructive sleep apnea G47.33 ; Morbid obesity E66.01 and Gastroesophageal reflux disease, esophagitis presence not specified K21.9 [facility] [address] [facility] [place] [id number] 06 Nov, 2017 Encounter for examination of eyes and vi ray without abnormal findings Z01.00 [facility] [address] [place] [address] 31 Oct, 2017 Thyroid nodule E04.1 and Screening for b reast cancer Z12.31 [facility] [address] [place] [address] 23 Oct, 2017 History of DVT (deep vein thrombosis) Z8 6.718 ; Thyroid nodule E04.1 and Gastroesophageal reflux disease, esophagitis presence not specified K21.9 [facility] [address] [address] Oct, [facility] [address] [address] Sep, [place] [address] [address] Aug, [place] [address] [address] Aug, [place] [address] [address] Aug, Acute pain of left shoulder M25.512 and Thyroid nodule E04.1 [place] [address] [address] July, Superior glenoid labrum lesion of left mehdi roy, subsequent encounter S43.432D [place] [address] [address] Jun, History of DVT (deep vein thrombosis) Z8 6.718 [place] [address] [address] Jun, History of DVT (deep vein thrombosis) Z8 6.718 [place] [address] [address] Jun, Impingement syndrome, shoulder, left M75 .42 [place] [address] [address] May, Subacromial bursitis of left shoulder saurabh int M75.52 [place] [address] [address] May, [place] [address] [address] May, Hypertriglyceridemia E78.1 ; FDC ( current) use of anticoagulants Z79.01 and Excessive daytime sleepiness G47.19 [place] [address] [address] May, History of DVT (deep vein thrombosis) Z8 6.718 ; Generalized anxiety disorder F41.1 ; Hypertriglyceridemia E78.1 ; FDC (current) use of anticoagulants Z79.01 ; Subacromial bursitis of left shoulder joint M75.52 and Excessive daytime sleepiness G47.19 [place] [address] [address] May, [place] [address] [address] May, FDC (current) use of anticoagulant s Z79.01 [place] [address] [address] 23 Apr, 2017 FDC (current) use of anticoagulant s Z79.01 [place] [address] [address] Apr, 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 [place] [address] [address] 20 Apr, 2017 FDC (current) use of anticoagulant s Z79.01 [place] [address] [address] Apr, [place] [address] [address] Apr, 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 [place] [address] [address] 13 Apr, 2017 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 [place] [address] [address] Apr, 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 [place] [address] [address] Apr, 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 [place] [address] [address] 07 Apr, 2017 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 [place] [address] [address] Apr, FDC (current) use of anticoagulant s Z79.01 [facility] [address] [address] Mar, 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 [facility] [address] [address] Mar, [facility] [address] [address] Mar, FDC (current) use of anticoagulant s Z79.01 [facility] [address] [id number] Jan, Dental examination Z01.20 [facility] [address] [id number] Jan, [facility] [address] [address] Jan, 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 [facility] [address] [address] Jan, History of DVT (deep vein thrombosis) Z8 6.718 [place] [address] [address] Jan, Generalized anxiety disorder F41.1 and P eripheral edema R60.9 [place] [address] [address] Nov, History of DVT (deep vein thrombosis) Z8 6.718 [facility] [address] [address] Nov, FDC (current) use of anticoagulant s Z79.01 [facility] [address] [facility] [id number] [address] [place] [address] Nov, Acute non-recurrent maxillar y sinusitis J01.00 [facility] [address] [address] Oct, FDC (current) use of anticoagulant s Z79.01 [place] [address] [address] Oct, Personal history of venous thrombosis an d embolism Z86.718 [place] [address] [address] Sep, [place] [address] [address] Sep, Personal history of venous thrombosis an d embolism Z86.718 [place] [address] [address] Sep, FDC (current) use of anticoagulant s Z79.01 [place] [address] [address] Sep, 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 [place] [address] [address] Sep, Generalized anxiety disorder F41.1 and H istory of DVT (deep vein thrombosis) Z86.718 [place] [address] [address] Aug, History of DVT (deep vein thrombosis) Z8 6.718 ; Generalized anxiety disorder F41.1 ; 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 ; Pelvic pain R10.2 ; Hypertriglyceridemia E78.1 ; Excessive daytime sleepiness G47.19 ; Colon cancer screening Z12.11 ; Screening for breast cancer Z12.39 ; Peripheral edema R60.9 and Gastroesophageal reflux disease, esophagitis presence not specified K21.9 [place] [address] [address] Aug, [place] [address] [address] July, [place] [address] [address] July, History of DVT (deep vein thrombosis) Z8 6.718 [place] [address] [address] Jun, Generalized anxiety disorder F41.1 [place] [address] [address] Jun, History of DVT (deep vein thrombosis) Z8 6.718 [place] [address] [address] Jun, History of DVT (deep vein thrombosis) Z8 6.718 [place] [address] [address] Jun, History of DVT (deep vein thrombosis) Z8 6.718 [place] [address] [address] Jun, History of DVT (deep vein thrombosis) Z8 6.718 [place] [address] [address] May, History of DVT (deep vein thrombosis) Z8 6.718 [place] [address] [address] May, FDC (current) use of anticoagulant s Z79.01 [place] [address] [address] May, FDC (current) use of anticoagulant s Z79.01 [place] [address] [address] May, History of DVT (deep vein thrombosis) Z8 6.718 [facility] [address] [facility] [id number] [address] [place] [address] Apr, Bacterial conjunctivitis of left eye H10.9 and H/O motion sickness Z87.898 [facility] [address] [address] Apr, History of DVT (deep vein thrombosis) Z8 6.718 [facility] [address] [address] 23 Apr, 2016 History of DVT (deep vein thrombosis) Z8 6.718 [place] [address] [address] 15 Apr, 2016 History of DVT (deep vein thrombosis) Z8 6.718 [place] [address] [address] 14 Apr, 2016 FDC (current) use of anticoagulant s Z79.01 [place] [address] [address] Mar, [place] [address] [address] Mar, FDC (current) use of anticoagulant s Z79.01 [place] [address] [address] Mar, Hypertriglyceridemia E78.1 and FDC (current) use of anticoagulants Z79.01 [place] [address] [address] Feb, 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 [place] [address] [address] Feb, FDC (current) use of anticoagulant s Z79.01 [place] [address] [address] Feb, 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 [place] [address] [address] Dec, [place] [address] [address] Nov, [place] [address] [address] 13 Nov, 2015 History of DVT (deep vein thrombosis) Z8 6.718 ; Tremulousness R25.1 ; Generalized anxiety disorder F41.1 ; Peripheral edema R60.9 and Hypertriglyceridemia E78.1 [place] [address] [address] Oct, History of DVT (deep vein thrombosis) Z8 6.718 [place] [address] [address] Oct, [place] [address] [address] Sep, History of DVT (deep vein thrombosis) Z8 6.718 [place] [address] [address] Sep, FDC (current) use of anticoagulant s Z79.01 [place] [address] [address] July, [place] [address] [address] July, 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 [place] [address] [address] July, 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 [place] [address] [address] Jun, 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 [facility] [place] [address] [place] [address] [id number] [place] [address] Jun, Coccyx pain M53.3 ; Encounte r for therapeutic drug level monitoring Z51.81 and 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 use 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.01 [place] [address] [address] May, Abnormal mammogram R92.8 [facility] [address] [place] [address] May, [facility] [place] [id number] [place] [address] May, Acute vaginitis N76.0 and En counter for other screening for malignant neoplasm of breast Z12.39 [place] [address] [address] Apr, [place] [address] [address] Apr, [place] [address] [address] Apr, Peripheral edema R60.9 [place] [address] [address] Apr, 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 [place] [address] [address] Apr, Peripheral edema R60.9 and FDC (cu rrent) use of anticoagulants Z79.01 [place] [address] [address] Apr, 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 [place] [address] [address] Apr, [place] [address] [address] Apr, 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 [place] [address] [address] Apr, Peripheral edema R60.9 [place] [address] [address] Mar, FDC (current) use of anticoagulant s Z79.01 [place] [address] [address] Mar, FDC (current) use of anticoagulant s Z79.01 and Hypertriglyceridemia E78.1 [place] [address] [address] Mar, 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 [place] [address] [address] Mar, 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 [place] [address] [address] Mar, [place] [address] [address] Mar, 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 ; Hypertriglyceridemia E78.1 ; Personal history of venous thrombosis and embolism Z86.718 and Lump R22.9 [place] [address] [address] Mar, Personal history of venous thrombosis an d embolism Z86.718 [place] [address] [address] Mar, Personal history of venous thrombosis an d embolism Z86.718 [place] [address] [address] Mar, [place] [address] [address] Dec, Personal history of venous thrombosis an d embolism Z86.718 [place] [address] [address] Dec, Personal history of venous thrombosis an d embolism V12.51 [place] [address] [address] 28 Nov, 2014 Personal history of venous thrombosis an d embolism V12.51 [place] [address] [address] 25 Nov, 2014 Personal history of venous thrombosis an d embolism V12.51 [place] [address] [address] 17 Nov, 2014 Personal history of venous thrombosis an d embolism V12.51 [place] [address] [address] 11 Nov, 2014 Personal history of venous thrombosis an d embolism V12.51 [facility] [id number] [place] [address] Nov, [facility] [address] [address] Oct, Dysuria 788.1 [facility] [address] [address] Oct, Personal history of venous thrombosis an d embolism V12.51 [facility] [address] [address] Oct, [facility] [address] [address] Oct, Personal history of venous thrombosis an d embolism V12.51 [place] [address] [address] Sep, Personal history of venous thrombosis an d embolism V12.51 [facility] [address] [address] Sep, Personal history of venous thrombosis an d embolism V12.51 [facility] [address] [address] Aug, Personal history of venous thrombosis an d embolism V12.51 [place] [address] [address] Aug, Personal history of venous thrombosis an d embolism V12.51 [facility] [address] [address] Aug, Personal history of venous thrombosis an d embolism V12.51 [place] [address] [address] July, Generalized anxiety disorder 300.02 ; Ab dominal pain, left lower quadrant 789.04 and Personal history of venous thrombosis and embolism V12.51 [facility] [id number] [place] [address] Jun, [facility] [address] [place] [address] [address] [place] [address] 13 Jun, 2014 [facility] [address] [facility] [id number] [place] [address] May, [facility] [address] [id number] [place] [address] May, [facility] [address] [id number] [place] [address] May, [facility] [address] [id number] [place] [address] May, [facility] [address] [id number] [place] [address] May, [facility] [address] [id number] [place] [address] May, [facility] [address] [id number] [place] [address] May, [facility] [address] [id number] [place] [address] May, [facility] [address] [id number] [place] [address] Apr, [facility] [address] [id number] [place] [address] Apr, [facility] [address] [id number] [place] [address] Apr, [facility] [address] [id number] [place] [address] Apr, [facility] [address] [id number] [place] [address] Apr, [facility] [address] [id number] [place] [address] Mar, [facility] [address] [id number] [place] [address] Mar, [facility] [address] [id number] [place] [address] Mar, [facility] [address] [id number] [place] [address] Mar, [facility] [address] [id number] [place] [address] Mar, [facility] [address] [id number] [place] [address] Mar, [facility] [address] [id number] [place] [address] Feb, [facility] [address] [facility] [id number] [place] [address] Feb, [facility] [address] [id number] [place] [address] Feb, [facility] [address] [id number] [place] [address] Feb, [facility] [address] [id number] [place] [address] Feb, [facility] [address] [id number] [place] [address] Feb, [facility] [address] [id number] [place] [address] Feb, [facility] [address] [id number] [place] [address] Feb, [facility] [address] [id number] [place] [address] Feb, [facility] [address] [id number] [place] [address] Feb, [facility] [address] [id number] [place] [address] Jan, [facility] [address] [id number] [place] [address] Jan, [facility] [address] [id number] [place] [address] Jan, [facility] [address] [id number] [place] [address] Jan, [facility] [address] [facility] [id number] [place] [address] Jan, [facility] [address] [id number] [place] [address] Jan, [facility] [address] [id number] [place] [address] Jan, [facility] [address] [id number] [place] [address] Jan, [facility] [address] [id number] [place] [address] Jan, [facility] [address] [id number] [place] [address] Jan, [facility] [address] [id number] [place] [address] Dec, [facility] [address] [id number] [place] [address] Dec, [facility] [address] [id number] [place] [address] Dec, [facility] [address] [id number] [place] [address] Dec, [facility] [address] [id number] [place] [address] Dec, [facility] [address] [id number] [place] [address] Dec, [facility] [address] [facility] [id number] [place] [address] Dec, [facility] [address] [id number] [place] [address] Dec, [facility] [address] [id number] [place] [address] Dec, [facility] [address] [id number] [place] [address] Dec, [facility] [address] [id number] [place] [address] 10 Dec, 2013 [facility] [address] [id number] [place] [address] Dec, [facility] [address] [id number] [place] [address] Dec, [facility] [address] [id number] [place] [address] Dec, [facility] [address] [id number] [place] [address] Dec, [facility] [address] [id number] [place] [address] 30 Nov, 2013 [facility] [address] [id number] [place] [address] 30 Nov, 2013 [facility] [address] [id number] [place] [address] 26 Nov, 2013 [facility] [address] [id number] [place] [address] 26 Sep, 2013 [facility] [address] [id number] [place] [address] 24 Nov, 2013 [facility] [address] [id number] [place] [address] 24 Nov, 2013 [facility] [address] [id number] [place] [address] 23 Nov, 2013 [facility] [address] [id number] [place] [address] 23 Sep, 2013 [facility] [address] [id number] [place] [address] 18 Sep, 2013 [facility] [address] [id number] [place] [address] 18 Sep, 2013 [facility] [address] [id number] [place] [address] 17 Sep, 2013 [facility] [address] [id number] [place] [address] 17 Sep, 2013 [facility] [address] [id number] [place] [address] 11 Nov, 2013 [facility] [address] [facility] [id number] [facility] [place] [address] 11 Nov, 2013 [facility] [address] [facility] [id number] [place] [address] 10 Nov, 2013 [facility] [address] [facility] [id number] [place] [address] 10 Nov, 2013 [facility] [address] [facility] [id number] [place] [address] 08 Nov, 2013 [facility] [address] [id number] [place] [address] 08 Nov, 2013 [facility] [address] [id number] [place] [address] Sep, 2013 [facility] [address] [id number] [place] [address] Sep, 2013 [facility] [address] [facility] [id number] [place] [address] Sep, 2013 [facility] [address] [id number] [place] [address] Sep, 2013 [facility] [address] [id number] [place] [address] Sep, 2013 [facility] [address] [id number] [place] [address] Sep, 2013 [facility] [address] [facility] [id number] [place] [address] Aug, [facility] [address] [id number] [place] [address] Aug, [facility] [address] [facility] [id number] [place] [address] Aug, [facility] [address] [id number] [place] [address] Aug, [facility] [address] [id number] [facility] [place] [address] 24 Aug, 2013 [facility] [address] [facility] [id number] [facility] [place] [address] Aug, [facility] [address] [facility] [id number] [place] [address] Aug, [facility] [address] [id number] [facility] [place] [address] Aug, [facility] [address] [id number] [facility] [place] [address] Aug, [facility] [address] [facility] [id number] [facility] [place] [address] Aug, [facility] [address] [id number] [place] [address] Aug, [facility] [address] [id number] [place] [address] July, [facility] [address] [id number] [place] [address] July, [facility] [address] [id number] [facility] [place] [address] Jun, [facility] [address] [id number] [place] [address] Jun, [facility] [address] [id number] [place] [address] Jun, [facility] [address] [id number] [place] [address] Jun, [facility] [address] [facility] [id number] [place] [address] Jun, [facility] [address] [id number] [place] [address] Jun, [facility] [address] [id number] [place] [address] 15 Jun, 2013 [facility] [address] [id number] [place] [address] 15 Jun, 2013 [facility] [address] [id number] [facility] [place] [address] 11 Jun, 2013 [facility] [address] [facility] [id number] [place] [address] Jun, [facility] [address] [id number] [place] [address] Jun, [facility] [address] [id number] [place] [address] Jun, [facility] [address] [id number] [place] [address] May, [facility] [address] [id number] [place] [address] May, [facility] [address] [id number] [place] [address] May, [facility] [address] [id number] [place] [address] May, [facility] [address] [id number] [place] [address] May, [facility] [address] [id number] [place] [address] May, [facility] [address] [id number] [place] [address] May, [facility] [address] [id number] [place] [address] May, [facility] [address] [id number] [place] [address] May, [facility] [address] [id number] [place] [address] May, [facility] [address] [id number] [place] [address] May, [facility] [address] [id number] [place] [address] May, [facility] [address] [id number] [place] [address] Apr, [facility] [address] [id number] [facility] [address] Apr, [facility] [address] [id number] [facility] [place] [address] Apr, [facility] [address] [id number] [facility] [address] Apr, [facility] [address] [id number] [facility] [address] Apr, [facility] [address] [id number] [facility] [address] Apr, [facility] [address] [id number] [place] [address] Apr, [facility] [address] [id number] [place] [address] Apr, [facility] [address] [id number] [place] [address] Apr, [facility] [address] [id number] [place] [address] Apr, [facility] [address] [id number] [place] [address] Apr, [facility] [address] [id number] [place] [address] Apr, [facility] [address] [id number] [place] [address] Apr, [facility] [address] [id number] [place] [address] Apr, [facility] [address] [id number] [place] [address] Apr, [facility] [address] [id number] [place] [address] Apr, [facility] [address] [id number] [place] [address] Apr, [facility] [address] [id number] [place] [address] Jan, [facility] [address] [id number] [place] [address] Jan, [facility] [address] [id number] [place] [address] 08 Jan, 2013 [facility] [address] [id number] [place] [address] Jan, [facility] [address] [id number] [place] [address] Jan, [facility] [address] [id number] [place] [address] Jan, [facility] [address] [id number] [place] [address] Jan, [facility] [address] [id number] [place] [address] Dec, [facility] [address] [id number] [place] [address] Dec, [facility] [address] [id number] [place] [address] Dec, [facility] [address] [id number] [place] [address] Nov, [facility] [address] [id number] [place] [address] 10 Nov, 2012 [facility] [address] [id number] [place] [address] 05 Nov, 2012 [facility] [address] [id number] [place] [address] 04 Nov, 2012 [facility] [address] [id number] [place] [address] Oct, [facility] [address] [id number] [place] [address] 08 Oct, 2012 [facility] [address] [id number] [place] [address] Oct, [facility] [address] [facility] [id number] [facility] [address] Oct, [facility] [address] [id number] [facility] [address] Oct, [facility] [address] [id number] [facility] [address] Sep, [facility] [address] [id number] [facility] [address] Sep, [facility] [address] [id number] [facility] [address] Sep, [facility] [address] [id number] [place] [address] Sep, [facility] [address] [id number] [place] [address] Sep, [facility] [address] [id number] [place] [address] Sep, [facility] [address] [id number] [place] [address] Sep, [facility] [address] [id number] [place] [address] Aug, [facility] [address] [id number] [place] [address] Aug, [facility] [address] [id number] [place] [address] July, [facility] [address] [id number] [place] [address] Jun, [facility] [address] [id number] [place] [address] Jun, [facility] [address] [id number] [place] [address] Jun, [facility] [address] [id number] [place] [address] Apr, [facility] [address] [id number] [place] [address] Apr, [facility] [address] [id number] [place] [address] Apr, [facility] [address] [id number] [place] [address] Mar, [facility] [address] [id number] [place] [address] Mar, [facility] [address] [id number] [place] [address] 2012 [facility] [address] [id number] [place] [address] Mar, [facility] [address] [id number] [place] [address] Mar, [facility] [address] [id number] [place] [address] 14 Feb, 2012 [facility] [address] [id number] [place] [address] 14 Feb, 2012 [facility] [address] [id number] [place] [address] Jan, [facility] [address] [id number] [place] [address] Jan, [facility] [address] [id number] [place] [address] 13 Jan, 2012 [facility] [address] [id number] [place] [address] 13 Jan, 2012 [facility] [address] [id number] [place] [address] 07 Jan, 2012 [facility] [address] [id number] [place] [address] 07 Jan, 2012 [facility] [address] [id number] [place] [address] 06 Jan, 2012 [facility] [address] [id number] [place] [address] Dec, [facility] [address] [facility] [id number] [place] [address] Dec, 2011 [facility] [address] [id number] [place] [address] Dec, [facility] [address] [id number] [place] [address] Dec, 2011 [facility] [address] [id number] [place] [address] Dec, [facility] [address] [facility] [id number] [place] [address] Dec, 2011 [facility] [address] [id number] [place] [address] Dec, [facility] [address] [id number] [place] [address] Dec, [facility] [address] [id number] [place] [address] Dec, [facility] [address] [id number] [place] [address] Dec, [facility] [address] [id number] [place] [address] Oct, [facility] [address] [id number] [place] [address] Oct, [facility] [address] [id number] [place] [address] Aug, [facility] [address] [id number] [place] [address] Aug, [facility] [address] [id number] [place] [address] July, [facility] [address] [id number] [place] [address] Jun, [facility] [address] [id number] [place] [address] Jun, [facility] [address] [id number] [place] [address] May, [facility] [address] [id number] [place] [address] Apr, [facility] [address] [id number] [place] [address] Apr, [facility] [address] [id number] [place] [address] Mar, [facility] [address] [id number] [place] [address] Mar, [facility] [address] [id number] [place] [address] Feb, [facility] [address] [id number] [place] [address] 15 Feb, 2011 [facility] [id number] [place] [address] Feb, [facility] [address] [id number] [place] [address] Feb, [facility] [address] [id number] [place] [address] Jan, [facility] [address] [id number] [place] [address] Dec, [facility] [address] [id number] [place] [address] Feb, [facility] [address] [id number] [place] [address] Feb, [facility] [address] [id number] [place] [address] Feb, [facility] [address] [id number] [place] [address] Feb, [facility] [address] [id number] [place] [address] Dec, [facility] [address] [id number] [place] [address] 15 Dec, 2009 [facility] [address] [id number] [place] [address] Oct, [facility] [address] [id number] [place] [address] Jun, [facility] [address] [id number] [place] [address] Feb, [facility] [address] [id number] [place] [address] Feb, [facility] [address] [id number] [place] [address] Feb, [facility] [address] [id number] [place] [address] Dec, IMMUNIZATIONS No Known Immunizations SOCIAL HISTORY [...] 1985, 1987 Surgical History cholecystectomy Surgical History Phoenix Filter 06/2009 Surgical History Left leg exploratory surgery r/t clot Surgical History left shoulder surgery 09/14/17 Surgical History lap band removed 12/2017 Surgical History gastic sleeve 01/2018 Surgical History Back surgery 2019 Surgical History Partial Thyroidectomy - left side 2019 Hospitalization History Ruptured Ovarian Cyst with abd bleed ing 11/2009 Hospitalization History Broken Back 06/2018
--- OUTSIDE RECORDS SUMMARY | 2019-10-19 12:52 | XMS REPORT ---
Author Author Mary Jane Mcginnis Doctor Organization [facility] Address Unknown Phone Unavailable Care Team Providers Care Bone Grinder Name Role Phone Migration, Doctor Unavailable Unavailable PROBLEMS Type Condition ICD9-CM Code [id number] Code Onset Dates Condition S tatus SNOMED Code Problem Thyroid follicular adenoma D34 Act phylicia 047365025 Problem History of DVT (deep vein thrombosis) Z86.718 Active 205834151 Problem Factor V Leiden D68.51 Active 3070 11831 Problem senior living (current) use of anticoagulants Z79.01 Active 398973479 Problem Hypertriglyceridemia E78.1 Active 007133958 Problem 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 Active 998843968 Problem Pelvic pain R10.2 Active 46185707 Problem Peripheral edema R60.9 Active 271 556204 Problem Moderate episode of recurrent major depressive disorder F33.1 Active 508881016 Problem Presence of IVC filter Z95.828 Active 531434855 Problem Vitamin D deficiency E55.9 Active 23185261 Problem Generalized anxiety disorder F41.1 A ctive 564496121 Problem Excessive daytime sleepiness G47.19 A ctive 982456688050 Problem Gastroesophageal reflux disease, esophagitis pre sence not specified K21.9 Active 034457586 Problem Thyroid nodule E04.1 Active 86696 5005 Problem Morbid obesity E66.01 Active 92166 6002 ALLERGIES No Information ENCOUNTERS Encounter Location Date Diagnosis [place] [id number] [place] [address] Apr, Back pain with history of spinal surgery M54.9 [place] [address] [address] Apr, [place] [address] [address] 10 Apr, 2019 Gastroenteritis K52.9 ; Back pain with h istory of spinal surgery M54.9 and Dermatofibroma of lower leg, unspecified laterality D23.70 [place] [id number] [place] [address] Mar, [place] [address] [address] Jan, [place] [address] [address] Jan, [place] [address] [address] Dec, Encounter for weight management Z76.89 [place] [address] [address] Dec, Encounter for weight management Z76.89 a nd Screening mammogram, encounter for Z12.31 [place] [address] [address] Nov, Encounter for weight management Z76.89 [place] [address] [address] Nov, Thyroid nodule E04.1 [place] [address] [address] Nov, Thyroid nodule E04.1 [place] [address] [address] Nov, Thyroid nodule E04.1 [place] [address] [address] Oct, Syncope, unspecified syncope type R55 an d Encounter for weight management Z76.89 [place] [address] [address] Oct, Morbid obesity E66.01 [place] [address] [address] Oct, Hypertriglyceridemia E78.1 [place] [address] [address] Oct, [place] [address] [address] Oct, Hypertriglyceridemia E78.1 [facility] [address] [address] Sep, Hypertriglyceridemia E78.1 and Vitamin D deficiency E55.9 [facility] [address] [address] Sep, [facility] [address] [address] Sep, Morbid obesity E66.01 ; Moderate episode of recurrent major depressive disorder F33.1 ; Hypertriglyceridemia E78.1 and Vitamin D deficiency E55.9 [facility] [address] [address] Aug, [facility] [address] [address] July, [facility] [address] [address] July, [facility] [address] [address] Jun, [facility] [address] [address] Jun, [facility] [address] [address] Jun, Closed compression fracture of L3 lumbar vertebra with routine healing, subsequent encounter S32.030D and Drug-induced constipation K59.03 [facility] [address] [address] Jun, [facility] [address] [address] Jun, [facility] [address] [address] Apr, [facility] [address] [address] Apr, Morbid obesity E66.01 [facility] [address] [address] 12 Apr, 2018 Morbid obesity E66.01 ; Hypertriglycerid emia E78.1 ; Gastroesophageal reflux disease, esophagitis presence not specified K21.9 and Joint pain M25.50 [facility] [id number] [place] [address] Feb, [facility] [id number] [place] [address] Feb, [facility] [address] [facility] [id number] [place] [address] Jan, Acute bacterial conjunctivit is H10.30 [facility] [address] [address] 08 Dec, 2017 [facility] [address] [address] 04 Dec, 2017 [facility] [id number] [place] [address] 17 Nov, 2017 [facility] [address] [address] 07 Nov, 2017 Obstructive sleep apnea G47.33 ; Morbid obesity E66.01 and Gastroesophageal reflux disease, esophagitis presence not specified K21.9 [facility] [address] [id number] [place] [id number] 06 Nov, 2017 Encounter for examination of eyes and vi ray without abnormal findings Z01.00 [facility] [id number] [place] [address] 31 Oct, 2017 Thyroid nodule E04.1 and Screening for b reast cancer Z12.31 [facility] [id number] [place] [address] 23 Oct, 2017 History of DVT (deep vein thrombosis) Z8 6.718 ; Thyroid nodule E04.1 and Gastroesophageal reflux disease, esophagitis presence not specified K21.9 [facility] [address] [address] Oct, [facility] [address] [address] Sep, [place] [address] [address] Aug, [place] [address] [address] Aug, [place] [address] [address] Aug, Acute pain of left shoulder M25.512 and Thyroid nodule E04.1 [place] [address] [address] July, Superior glenoid labrum lesion of left mehdi roy, subsequent encounter S43.432D [place] [address] [address] Jun, History of DVT (deep vein thrombosis) Z8 6.718 [place] [address] [address] Jun, History of DVT (deep vein thrombosis) Z8 6.718 [place] [address] [address] Jun, Impingement syndrome, shoulder, left M75 .42 [place] [address] [address] May, Subacromial bursitis of left shoulder saurabh int M75.52 [place] [address] [address] May, [place] [address] [address] May, Hypertriglyceridemia E78.1 ; senior living ( current) use of anticoagulants Z79.01 and Excessive daytime sleepiness G47.19 [place] [address] [address] May, History of DVT (deep vein thrombosis) Z8 6.718 ; Generalized anxiety disorder F41.1 ; Hypertriglyceridemia E78.1 ; senior living (current) use of anticoagulants Z79.01 ; Subacromial bursitis of left shoulder joint M75.52 and Excessive daytime sleepiness G47.19 [place] [address] [address] May, [place] [address] [address] May, senior living (current) use of anticoagulant s Z79.01 [place] [address] [address] 23 Apr, 2017 senior living (current) use of anticoagulant s Z79.01 [place] [address] [address] Apr, exterminator (current) use of anticoagulant s Z79.01 [place] [address] [address] 20 Apr, 2017 senior living (current) use of anticoagulant s Z79.01 [place] [address] [address] Apr, [place] [address] [address] Apr, exterminator (current) use of anticoagulant s Z79.01 [place] [address] [address] 13 Apr, 2017 exterminator (current) use of anticoagulant s Z79.01 [place] [address] [address] Apr, exterminator (current) use of anticoagulant s Z79.01 [place] [address] [address] Apr, exterminator (current) use of anticoagulant s Z79.01 [place] [address] [address] 07 Apr, 2017 exterminator (current) use of anticoagulant s Z79.01 [place] [address] [address] Apr, senior living (current) use of anticoagulant s Z79.01 [facility] [address] [address] Mar, exterminator (current) use of anticoagulant s Z79.01 [facility] [address] [address] Mar, [facility] [address] [address] Mar, senior living (current) use of anticoagulant s Z79.01 [facility] [address] [id number] Jan, Dental examination Z01.20 [facility] [address] [id number] Jan, [facility] [address] [address] Jan, exterminator (current) use of anticoagulant s Z79.01 [facility] [address] [address] Jan, History of DVT (deep vein thrombosis) Z8 6.718 [place] [address] [address] Jan, Generalized anxiety disorder F41.1 and P eripheral edema R60.9 [place] [address] [address] Nov, History of DVT (deep vein thrombosis) Z8 6.718 [facility] [address] [address] Nov, senior living (current) use of anticoagulant s Z79.01 [facility] [address] [facility] [id number] [address] [place] [address] Nov, Acute non-recurrent maxillar y sinusitis J01.00 [facility] [address] [address] Oct, senior living (current) use of anticoagulant s Z79.01 [place] [id number] [address] Oct, Personal history of venous thrombosis an d embolism Z86.718 [place] [address] [address] Sep, [place] [address] [address] Sep, Personal history of venous thrombosis an d embolism Z86.718 [place] [address] [address] Sep, senior living (current) use of anticoagulant s Z79.01 [place] [address] [address] Sep, exterminator (current) use of anticoagulant s Z79.01 [place] [address] [address] Sep, Generalized anxiety disorder F41.1 and H istory of DVT (deep vein thrombosis) Z86.718 [place] [address] [address] Aug, History of DVT (deep vein thrombosis) Z8 6.718 ; Generalized anxiety disorder F41.1 ; exterminator (current) use of anticoagulants Z79.01 ; Pelvic pain R10.2 ; Hypertriglyceridemia E78.1 ; Excessive daytime sleepiness G47.19 ; Colon cancer screening Z12.11 ; Screening for breast cancer Z12.39 ; Peripheral edema R60.9 and Gastroesophageal reflux disease, esophagitis presence not specified K21.9 [place] [address] [address] Aug, [place] [address] [address] July, [place] [address] [address] July, History of DVT (deep vein thrombosis) Z8 6.718 [place] [address] [address] Jun, Generalized anxiety disorder F41.1 [place] [address] [address] Jun, History of DVT (deep vein thrombosis) Z8 6.718 [place] [address] [address] Jun, History of DVT (deep vein thrombosis) Z8 6.718 [place] [address] [address] Jun, History of DVT (deep vein thrombosis) Z8 6.718 [place] [address] [address] Jun, History of DVT (deep vein thrombosis) Z8 6.718 [place] [address] [address] May, History of DVT (deep vein thrombosis) Z8 6.718 [place] [address] [address] May, senior living (current) use of anticoagulant s Z79.01 [place] [address] [address] May, senior living (current) use of anticoagulant s Z79.01 [place] [address] [address] May, History of DVT (deep vein thrombosis) Z8 6.718 [facility] [address] [facility] [id number] [address] [place] [address] Apr, Bacterial conjunctivitis of left eye H10.9 and H/O motion sickness Z87.898 [facility] [address] [address] Apr, History of DVT (deep vein thrombosis) Z8 6.718 [facility] [address] [address] 23 Apr, 2016 History of DVT (deep vein thrombosis) Z8 6.718 [place] [address] [address] 15 Apr, 2016 History of DVT (deep vein thrombosis) Z8 6.718 [place] [address] [address] 14 Apr, 2016 senior living (current) use of anticoagulant s Z79.01 [place] [address] [address] Mar, [place] [address] [address] Mar, senior living (current) use of anticoagulant s Z79.01 [place] [address] [address] Mar, Hypertriglyceridemia E78.1 and senior living (current) use of anticoagulants Z79.01 [place] [address] [address] Feb, exterminator (current) use of anticoagulant s Z79.01 [place] [address] [address] Feb, senior living (current) use of anticoagulant s Z79.01 [place] [address] [address] Feb, exterminator (current) use of anticoagulant s Z79.01 [place] [address] [address] Dec, [place] [address] [address] Nov, [place] [address] [address] 13 Nov, 2015 History of DVT (deep vein thrombosis) Z8 6.718 ; Tremulousness R25.1 ; Generalized anxiety disorder F41.1 ; Peripheral edema R60.9 and Hypertriglyceridemia E78.1 [place] [address] [address] Oct, History of DVT (deep vein thrombosis) Z8 6.718 [place] [address] [address] Oct, [place] [address] [address] Sep, History of DVT (deep vein thrombosis) Z8 6.718 [place] [address] [address] Sep, senior living (current) use of anticoagulant s Z79.01 [place] [address] [address] July, [place] [address] [address] July, exterminator (current) use of anticoagulant s Z79.01 [place] [address] [address] July, exterminator (current) use of anticoagulant s Z79.01 [place] [address] [address] Jun, exterminator (current) use of anticoagulant s Z79.01 [facility] [place] [address] [place] [address] [id number] [place] [address] Jun, Coccyx pain M53.3 ; Encounte r for therapeutic drug level monitoring Z51.81 and exterminator current use 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.01 [place] [address] [address] May, Abnormal mammogram R92.8 [facility] [address] [place] [address] May, [facility] [place] [id number] [place] [address] May, Acute vaginitis N76.0 and En counter for other screening for malignant neoplasm of breast Z12.39 [place] [address] [address] Apr, [place] [address] [address] Apr, [place] [address] [address] Apr, Peripheral edema R60.9 [place] [address] [address] Apr, exterminator (current) use of anticoagulant s Z79.01 [place] [address] [address] Apr, Peripheral edema R60.9 and senior living (cu rrent) use of anticoagulants Z79.01 [place] [address] [address] Apr, exterminator (current) use of anticoagulant s Z79.01 [place] [address] [address] Apr, [place] [address] [address] Apr, exterminator (current) use of anticoagulant s Z79.01 [place] [address] [address] Apr, Peripheral edema R60.9 [place] [address] [address] Mar, senior living (current) use of anticoagulant s Z79.01 [place] [address] [address] Mar, senior living (current) use of anticoagulant s Z79.01 and Hypertriglyceridemia E78.1 [place] [address] [address] Mar, exterminator (current) use of anticoagulant s Z79.01 [place] [address] [address] Mar, exterminator (current) use of anticoagulant s Z79.01 [place] [address] [address] Mar, [place] [address] [address] Mar, exterminator (current) use of anticoagulant s Z79.01 ; Hypertriglyceridemia E78.1 ; Personal history of venous thrombosis and embolism Z86.718 and Lump R22.9 [place] [address] [address] Mar, Personal history of venous thrombosis an d embolism Z86.718 [place] [address] [address] Mar, Personal history of venous thrombosis an d embolism Z86.718 [place] [address] [address] Mar, [place] [address] [address] Dec, Personal history of venous thrombosis an d embolism Z86.718 [place] [address] [address] Dec, Personal history of venous thrombosis an d embolism V12.51 [place] [address] [address] 28 Nov, 2014 Personal history of venous thrombosis an d embolism V12.51 [place] [address] [address] 25 Nov, 2014 Personal history of venous thrombosis an d embolism V12.51 [place] [address] [address] 17 Nov, 2014 Personal history of venous thrombosis an d embolism V12.51 [place] [address] [address] 11 Nov, 2014 Personal history of venous thrombosis an d embolism V12.51 [facility] [id number] [place] [address] Nov, [facility] [address] [address] Oct, Dysuria 788.1 [facility] [address] [address] Oct, Personal history of venous thrombosis an d embolism V12.51 [facility] [address] [address] Oct, [facility] [address] [address] Oct, Personal history of venous thrombosis an d embolism V12.51 [place] [address] [address] Sep, Personal history of venous thrombosis an d embolism V12.51 [facility] [address] [address] Sep, Personal history of venous thrombosis an d embolism V12.51 [facility] [address] [address] Aug, Personal history of venous thrombosis an d embolism V12.51 [place] [address] [address] Aug, Personal history of venous thrombosis an d embolism V12.51 [facility] [address] [address] Aug, Personal history of venous thrombosis an d embolism V12.51 [place] [address] [address] July, Generalized anxiety disorder 300.02 ; Ab dominal pain, left lower quadrant 789.04 and Personal history of venous thrombosis and embolism V12.51 [facility] [id number] [place] [address] Jun, [facility] [address] [place] [address] [place] [address] 13 Jun, 2014 [facility] [address] [facility] [id number] [place] [address] May, [facility] [address] [id number] [place] [address] May, [facility] [address] [id number] [place] [address] May, [facility] [address] [id number] [place] [address] May, [facility] [address] [id number] [place] [address] May, [facility] [address] [id number] [place] [address] May, [facility] [address] [id number] [place] [address] May, [facility] [address] [id number] [place] [address] May, [facility] [address] [id number] [place] [address] Apr, [facility] [address] [id number] [place] [address] Apr, [facility] [address] [id number] [place] [address] Apr, [facility] [address] [id number] [place] [address] Apr, [facility] [address] [id number] [place] [address] Apr, [facility] [address] [id number] [place] [address] Mar, [facility] [address] [id number] [place] [address] Mar, [facility] [address] [id number] [place] [address] Mar, [facility] [address] [id number] [place] [address] Mar, [facility] [address] [id number] [place] [address] Mar, [facility] [address] [id number] [place] [address] Mar, [facility] [address] [id number] [place] [address] Feb, [facility] [address] [facility] [id number] [place] [address] Feb, [facility] [address] [id number] [place] [address] Feb, [facility] [address] [id number] [place] [address] Feb, [facility] [address] [id number] [place] [address] Feb, [facility] [address] [id number] [place] [address] Feb, [facility] [address] [id number] [place] [address] Feb, [facility] [address] [id number] [place] [address] Feb, [facility] [address] [id number] [place] [address] Feb, [facility] [address] [id number] [place] [address] Feb, [facility] [address] [id number] [place] [address] Jan, [facility] [address] [id number] [place] [address] Jan, [facility] [address] [id number] [place] [address] Jan, [facility] [address] [id number] [place] [address] Jan, [facility] [address] [facility] [id number] [place] [address] Jan, [facility] [address] [id number] [place] [address] Jan, [facility] [address] [id number] [place] [address] Jan, [facility] [address] [id number] [place] [address] Jan, [facility] [address] [id number] [place] [address] Jan, [facility] [address] [id number] [place] [address] Jan, [facility] [address] [id number] [place] [address] Dec, [facility] [address] [id number] [place] [address] Dec, [facility] [address] [id number] [place] [address] Dec, [facility] [address] [id number] [place] [address] Dec, [facility] [address] [id number] [place] [address] Dec, [facility] [address] [id number] [place] [address] Dec, [facility] [address] [facility] [id number] [place] [address] Dec, [facility] [address] [id number] [place] [address] Dec, [facility] [address] [id number] [place] [address] Dec, [facility] [address] [id number] [place] [address] Dec, [facility] [address] [id number] [place] [address] 10 Dec, 2013 [facility] [address] [id number] [place] [address] Dec, [facility] [address] [id number] [place] [address] Dec, [facility] [address] [id number] [place] [address] Dec, [facility] [address] [id number] [place] [address] Dec, [facility] [address] [id number] [place] [address] 30 Nov, 2013 [facility] [address] [id number] [place] [address] 30 Nov, 2013 [facility] [address] [id number] [place] [address] 26 Nov, 2013 [facility] [address] [id number] [place] [address] 26 Sep, 2013 [facility] [address] [id number] [place] [address] 24 Nov, 2013 [facility] [address] [id number] [place] [address] 24 Nov, 2013 [facility] [address] [id number] [place] [address] 23 Nov, 2013 [facility] [address] [id number] [place] [address] 23 Sep, 2013 [facility] [address] [id number] [place] [address] 18 Sep, 2013 [facility] [address] [id number] [place] [address] 18 Sep, 2013 [facility] [address] [id number] [place] [address] 17 Sep, 2013 [facility] [address] [id number] [place] [address] 17 Sep, 2013 [facility] [address] [id number] [place] [address] 11 Nov, 2013 [facility] [address] [facility] [id number] [facility] [address] 11 Nov, 2013 [facility] [address] [facility] [id number] [place] [address] 10 Nov, 2013 [facility] [address] [facility] [id number] [place] [address] 10 Nov, 2013 [facility] [address] [facility] [id number] [place] [address] 08 Nov, 2013 [facility] [address] [id number] [place] [address] 08 Nov, 2013 [facility] [address] [id number] [place] [address] Sep, 2013 [facility] [address] [id number] [place] [address] Sep, 2013 [facility] [address] [facility] [id number] [place] [address] Sep, 2013 [facility] [address] [id number] [place] [address] Sep, 2013 [facility] [address] [id number] [place] [address] Sep, 2013 [facility] [address] [id number] [place] [address] Sep, 2013 [facility] [address] [facility] [id number] [place] [address] Aug, [facility] [address] [id number] [place] [address] Aug, [facility] [address] [facility] [id number] [place] [address] Aug, [facility] [address] [id number] [place] [address] Aug, [facility] [address] [id number] [facility] [place] [address] 24 Aug, 2013 [facility] [address] [facility] [id number] [facility] [place] [address] Aug, [facility] [address] [facility] [id number] [place] [address] Aug, [facility] [address] [id number] [facility] [address] Aug, [facility] [address] [id number] [facility] [place] [address] Aug, [facility] [address] [facility] [id number] [facility] [address] Aug, [facility] [address] [id number] [place] [address] Aug, [facility] [address] [id number] [place] [address] July, [facility] [address] [id number] [place] [address] July, [facility] [address] [id number] [facility] [address] Jun, [facility] [address] [id number] [place] [address] Jun, [facility] [address] [id number] [place] [address] Jun, [facility] [address] [id number] [place] [address] Jun, [facility] [address] [facility] [id number] [place] [address] Jun, [facility] [address] [id number] [place] [address] Jun, [facility] [address] [id number] [place] [address] 15 Jun, 2013 [facility] [address] [id number] [place] [address] 15 Jun, 2013 [facility] [address] [id number] [facility] [address] 11 Jun, 2013 [facility] [address] [facility] [id number] [place] [address] Jun, [facility] [address] [id number] [place] [address] Jun, [facility] [address] [id number] [place] [address] Jun, [facility] [address] [id number] [place] [address] May, [facility] [address] [id number] [place] [address] May, [facility] [address] [id number] [place] [address] May, [facility] [address] [id number] [place] [address] May, [facility] [address] [id number] [place] [address] May, [facility] [address] [id number] [place] [address] May, [facility] [address] [id number] [place] [address] May, [facility] [address] [id number] [place] [address] May, [facility] [address] [id number] [place] [address] May, [facility] [address] [id number] [place] [address] May, [facility] [address] [id number] [place] [address] May, [facility] [address] [id number] [place] [address] May, [facility] [address] [id number] [place] [address] Apr, [facility] [address] [id number] [facility] [address] Apr, [facility] [address] [id number] [facility] [place] [address] Apr, [facility] [address] [id number] [facility] [address] Apr, [facility] [address] [id number] [facility] [place] [address] Apr, [facility] [address] [id number] [facility] [address] Apr, [facility] [address] [id number] [place] [address] Apr, [facility] [address] [id number] [place] [address] Apr, [facility] [address] [id number] [place] [address] Apr, [facility] [address] [id number] [place] [address] Apr, [facility] [address] [id number] [place] [address] Apr, [facility] [address] [id number] [place] [address] Apr, [facility] [address] [id number] [place] [address] Apr, [facility] [address] [id number] [place] [address] Apr, [facility] [address] [id number] [place] [address] Apr, [facility] [address] [id number] [place] [address] Apr, [facility] [address] [id number] [place] [address] Apr, [facility] [address] [id number] [place] [address] Jan, [facility] [address] [id number] [place] [address] Jan, [facility] [address] [id number] [place] [address] 08 Jan, 2013 [facility] [address] [id number] [place] [address] Jan, [facility] [address] [id number] [place] [address] Jan, [facility] [address] [id number] [place] [address] Jan, [facility] [address] [id number] [place] [address] Jan, [facility] [address] [id number] [place] [address] Dec, [facility] [address] [id number] [place] [address] Dec, [facility] [address] [id number] [place] [address] Dec, [facility] [address] [id number] [place] [address] Nov, [facility] [address] [id number] [place] [address] 10 Nov, 2012 [facility] [address] [id number] [place] [address] 05 Nov, 2012 [facility] [address] [id number] [place] [address] 04 Nov, 2012 [facility] [address] [id number] [place] [address] Oct, [facility] [address] [id number] [place] [address] 08 Oct, 2012 [facility] [address] [id number] [place] [address] Oct, [facility] [address] [facility] [id number] [facility] [place] [address] Oct, [facility] [address] [id number] [facility] [place] [address] Oct, [facility] [address] [id number] [facility] [address] Sep, [facility] [address] [id number] [facility] [place] [address] Sep, [facility] [address] [id number] [facility] [address] Sep, [facility] [address] [id number] [place] [address] Sep, [facility] [address] [id number] [place] [address] Sep, [facility] [address] [id number] [place] [address] Sep, [facility] [address] [id number] [place] [address] Sep, [facility] [address] [id number] [place] [address] Aug, [facility] [address] [id number] [place] [address] Aug, [facility] [address] [id number] [place] [address] July, [facility] [address] [id number] [place] [address] Jun, [facility] [address] [id number] [place] [address] Jun, [facility] [address] [id number] [place] [address] Jun, [facility] [address] [id number] [place] [address] Apr, [facility] [address] [id number] [place] [address] Apr, [facility] [address] [id number] [place] [address] Apr, [facility] [address] [id number] [place] [address] Mar, [facility] [address] [id number] [place] [address] Mar, [facility] [address] [id number] [place] [address] 2012 [facility] [address] [id number] [place] [address] Mar, [facility] [address] [id number] [place] [address] Mar, [facility] [address] [id number] [place] [address] 14 Feb, 2012 [facility] [address] [id number] [place] [address] 14 Feb, 2012 [facility] [address] [id number] [place] [address] Jan, [facility] [address] [id number] [place] [address] Jan, [facility] [address] [id number] [place] [address] 13 Jan, 2012 [facility] [address] [id number] [place] [address] 13 Jan, 2012 [facility] [address] [id number] [place] [address] 07 Jan, 2012 [facility] [address] [id number] [place] [address] 07 Jan, 2012 [facility] [address] [id number] [place] [address] 06 Jan, 2012 [facility] [address] [id number] [place] [address] Dec, [facility] [address] [facility] [id number] [place] [address] Dec, 2011 [facility] [address] [id number] [place] [address] Dec, [facility] [address] [id number] [place] [address] Dec, 2011 [facility] [address] [id number] [place] [address] Dec, [facility] [address] [facility] [id number] [place] [address] Dec, 2011 [facility] [address] [id number] [place] [address] Dec, [facility] [address] [id number] [place] [address] Dec, [facility] [address] [id number] [place] [address] Dec, [facility] [address] [id number] [place] [address] Dec, [facility] [address] [id number] [place] [address] Oct, [facility] [address] [id number] [place] [address] Oct, [facility] [address] [id number] [place] [address] Aug, [facility] [address] [id number] [place] [address] Aug, [facility] [address] [id number] [place] [address] July, [facility] [address] [id number] [place] [address] Jun, [facility] [address] [id number] [place] [address] Jun, [facility] [address] [id number] [place] [address] May, [facility] [address] [id number] [place] [address] Apr, [facility] [address] [id number] [place] [address] Apr, [facility] [address] [id number] [place] [address] Mar, [facility] [address] [id number] [place] [address] Mar, [facility] [address] [id number] [place] [address] Feb, [facility] [address] [id number] [place] [address] 15 Feb, 2011 [facility] [id number] [place] [address] Feb, [facility] [address] [id number] [place] [address] Feb, [facility] [address] [id number] [place] [address] Jan, [facility] [address] [id number] [place] [address] Dec, [facility] [address] [id number] [place] [address] Feb, [facility] [address] [id number] [place] [address] Feb, [facility] [address] [id number] [place] [address] Feb, [facility] [address] [id number] [place] [address] Feb, [facility] [address] [id number] [place] [address] Dec, [facility] [address] [id number] [place] [address] 15 Dec, 2009 [facility] [address] [id number] [place] [address] Oct, [facility] [address] [id number] [place] [address] Jun, [facility] [address] [id number] [place] [address] Feb, [facility] [address] [id number] [place] [address] Feb, [facility] [address] [id number] [place] [address] Feb, [facility] [address] [id number] [place] [address] Dec, IMMUNIZATIONS No Known Immunizations SOCIAL HISTORY [...] 1985, 1987 Surgical History cholecystectomy Surgical History [place] Filter 06/2009 Surgical History Left leg exploratory surgery r/t clot Surgical History left shoulder surgery 09/14/17 Surgical History lap band removed 12/2017 Surgical History gastic sleeve 01/2018 Surgical History Back surgery 2019 Surgical History Partial Thyroidectomy - left side 2019 Hospitalization History Ruptured Ovarian Cyst with abd bleed ing 11/2009 Hospitalization History Broken Back 06/2018
--- OUTSIDE RECORDS SUMMARY | 2019-10-19 12:52 | XMS REPORT ---
Author Author Mary Jane Donohue Organization [facility] Address [address] [place] [address] Care Team Providers [employer] Name Role Phone JAMI Donohue Unavailable PROBLEMS Type Condition ICD9-CM Code XJD84-ED Code Onset Dates Condition S tatus SNOMED Code Problem Thyroid follicular adenoma D34 Act phylicia 270956578 Problem History of DVT (deep vein thrombosis) Z86.718 Active 386246368 Problem Factor V Leiden D68.51 Active 3070 38879 Problem long-term (current) 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 Z79.01 Active 509378148 Problem Hypertriglyceridemia E78.1 Active 599238476 Problem 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 Active 776844080 Problem Pelvic pain R10.2 Active 83928709 Problem Peripheral edema R60.9 Active 271 124283 Problem Moderate episode of recurrent major depressive disorder F33.1 Active 368039371 Problem Presence of IVC filter Z95.828 Active 953966074 Problem Vitamin D deficiency E55.9 Active 26305469 Problem Generalized anxiety disorder F41.1 A ctive 840969767 Problem Excessive daytime sleepiness G47.19 A ctive 315523479139 Problem Gastroesophageal reflux disease, esophagitis pre sence not specified K21.9 Active 468588911 Problem Thyroid nodule E04.1 Active 36038 5005 Problem Morbid obesity E66.01 Active 54487 6002 ALLERGIES No Information ENCOUNTERS Encounter Location Date Diagnosis [facility] [id number] [place] [address] 12 Apr, 2019 Back pain with history of spinal surgery M54.9 [facility] [address] [address] 11 Apr, 2019 [facility] [id number] [address] 10 Apr, 2019 Gastroenteritis K52.9 ; Back pain with h istory of spinal surgery M54.9 and Dermatofibroma of lower leg, unspecified laterality D23.70 [place] [address] [address] Mar, [place] [address] [address] Jan, [place] [address] [address] Jan, [place] [address] [address] Dec, Encounter for weight management Z76.89 [place] [address] [address] Dec, Encounter for weight management Z76.89 a nd Screening mammogram, encounter for Z12.31 [place] [address] [address] Nov, Encounter for weight management Z76.89 [place] [address] [address] Nov, Thyroid nodule E04.1 [place] [address] [address] Nov, Thyroid nodule E04.1 [place] [address] [address] Nov, Thyroid nodule E04.1 [place] [address] [address] Oct, Syncope, unspecified syncope type R55 an d Encounter for weight management Z76.89 [place] [address] [address] Oct, Morbid obesity E66.01 [place] [address] [address] Oct, Hypertriglyceridemia E78.1 [place] [address] [address] Oct, [facility] [address] [address] Oct, Hypertriglyceridemia E78.1 [facility] [address] [address] Sep, Hypertriglyceridemia E78.1 and Vitamin D deficiency E55.9 [facility] [address] [address] Sep, [facility] [address] [address] Sep, Morbid obesity E66.01 ; Moderate episode of recurrent major depressive disorder F33.1 ; Hypertriglyceridemia E78.1 and Vitamin D deficiency E55.9 [facility] [address] [address] Aug, [facility] [address] [address] July, [facility] [address] [address] July, [facility] [address] [address] Jun, [facility] [address] [address] Jun, [facility] [address] [address] Jun, Closed compression fracture of L3 lumbar vertebra with routine healing, subsequent encounter S32.030D and Drug-induced constipation K59.03 [facility] [address] [address] Jun, [facility] [address] [address] Jun, [facility] [address] [address] Apr, [facility] [address] [address] Apr, Morbid obesity E66.01 [facility] [address] [address] 12 Apr, 2018 Morbid obesity E66.01 ; Hypertriglycerid emia E78.1 ; Gastroesophageal reflux disease, esophagitis presence not specified K21.9 and Joint pain M25.50 [facility] [address] [address] Feb, [facility] [address] [address] Feb, [facility] [address] [facility] [id number] [address] [place] [address] Jan, Acute bacterial conjunctivit is H10.30 [place] [address] [address] 08 Dec, 2017 [place] [address] [address] 04 Dec, 2017 [place] [address] [address] 17 Nov, 2017 [place] [address] [address] 07 Nov, 2017 Obstructive sleep apnea G47.33 ; Morbid obesity E66.01 and Gastroesophageal reflux disease, esophagitis presence not specified K21.9 [facility] [address] [id number] [place] [id number] 06 Nov, 2017 Encounter for examination of eyes and vi ray without abnormal findings Z01.00 [place] [address] [address] 31 Oct, 2017 Thyroid nodule E04.1 and Screening for b reast cancer Z12.[address] [address] 23 Oct, 2017 History of DVT (deep vein thrombosis) Z8 6.718 ; Thyroid nodule E04.1 and Gastroesophageal reflux disease, esophagitis presence not specified K21.9 [place] [address] [address] Oct, [place] [address] [address] Sep, [place] [address] [address] Aug, [place] [address] [address] Aug, [place] [address] [address] Aug, Acute pain of left shoulder M25.512 and Thyroid nodule E04.[address] [address] July, Superior glenoid labrum lesion of left mehdi roy, subsequent encounter S43.432D [place] [address] [address] Jun, History of DVT (deep vein thrombosis) Z8 6.718 [place] [address] [address] Jun, History of DVT (deep vein thrombosis) Z8 6.718 [place] [address] [address] Jun, Impingement syndrome, shoulder, left M75 .42 [place] [address] [address] May, Subacromial bursitis of left shoulder saurabh int M75.52 [place] [address] [address] May, [address] [address] May, Hypertriglyceridemia E78.1 ; long-term ( current) 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 Z79.01 and Excessive daytime sleepiness G47.19 [place] [address] [address] May, History of DVT (deep vein thrombosis) Z8 6.718 ; Generalized anxiety disorder F41.1 ; Hypertriglyceridemia E78.1 ; 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 ; Subacromial bursitis of left shoulder joint M75.52 and Excessive daytime sleepiness G47.19 [place] [address] [address] May, [place] [address] [address] May, long-term (current) use of anticoagulant s Z79.01 [place] [address] [address] 23 Apr, 2017 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 [place] [address] [address] Apr, long-term (current) use of anticoagulant s Z79.01 [place] [address] [address] Apr, 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 [place] [address] [address] Apr, [place] [address] [address] 16 Apr, 2017 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 [place] [address] [address] 13 Apr, 2017 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 [place] [address] [address] Apr, long-term (current) use of anticoagulant s Z79.01 [place] [address] [address] Apr, 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 [place] [address] [address] 07 Apr, 2017 long-term (current) use of anticoagulant s Z79.01 [facility] [address] [address] Apr, long-term (current) use of anticoagulant s Z79.01 [facility] [address] [address] Mar, long-term (current) use of anticoagulant s Z79.01 [facility] [address] [address] Mar, [facility] [address] [address] Mar, long-term (current) use of anticoagulant s Z79.01 [facility] [address] [id number] Jan, Dental examination Z01.20 [facility] [address] [id number] Jan, [facility] [address] [address] Jan, long-term (current) use of anticoagulant s Z79.01 [place] [address] [address] Jan, History of DVT (deep vein thrombosis) Z8 6.718 [place] [address] [address] Jan, Generalized anxiety disorder F41.1 and P eripheral edema R60.9 [facility] [address] [address] Nov, History of DVT (deep vein thrombosis) Z8 6.718 [place] [address] [address] Nov, long-term (current) use of anticoagulant s Z79.01 [facility] [address] [facility] [id number] [address] [place] [address] 09 Nov, 2016 Acute non-recurrent maxillar y sinusitis J01.00 [place] [address] [address] Oct, long-term (current) use of anticoagulant s Z79.01 [place] [address] [address] Oct, Personal history of venous thrombosis an d embolism Z86.718 [place] [address] [address] Sep, [place] [address] [address] Sep, Personal history of venous thrombosis an d embolism Z86.718 [place] [address] [address] Sep, 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 [place] [address] [address] Sep, long-term (current) use of anticoagulant s Z79.01 [place] [address] [address] Sep, Generalized anxiety disorder F41.1 and H istory of DVT (deep vein thrombosis) Z86.718 [place] [address] [address] Aug, History of DVT (deep vein thrombosis) Z8 6.718 ; Generalized anxiety disorder F41.1 ; long-term (current) use of anticoagulants Z79.01 ; Pelvic pain R10.2 ; Hypertriglyceridemia E78.1 ; Excessive daytime sleepiness G47.19 ; Colon cancer screening Z12.11 ; Screening for breast cancer Z12.39 ; Peripheral edema R60.9 and Gastroesophageal reflux disease, esophagitis presence not specified K21.9 [place] [address] [address] Aug, [place] [address] [address] July, [place] [address] [address] July, History of DVT (deep vein thrombosis) Z8 6.718 [place] [address] [address] Jun, Generalized anxiety disorder F41.1 [place] [address] [address] Jun, History of DVT (deep vein thrombosis) Z8 6.718 [place] [address] [address] Jun, History of DVT (deep vein thrombosis) Z8 6.718 [place] [address] [address] Jun, History of DVT (deep vein thrombosis) Z8 6.718 [place] [address] [address] Jun, History of DVT (deep vein thrombosis) Z8 6.718 [place] [address] [address] May, History of DVT (deep vein thrombosis) Z8 6.718 [place] [address] [address] May, 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 [place] [address] [address] May, long-term (current) use of anticoagulant s Z79.01 [address] [address] [address] May, History of DVT (deep vein thrombosis) Z8 6.718 [facility] [address] [facility] [id number] [address] [place] [address] Apr, Bacterial conjunctivitis of left eye H10.9 and H/O motion sickness Z87.898 [address] [place] [address] Apr, History of DVT (deep vein thrombosis) Z8 6.718 [place] [address] [address] 23 Apr, 2016 History of DVT (deep vein thrombosis) Z8 6.718 [facility] [address] [address] 15 Apr, 2016 History of DVT (deep vein thrombosis) Z8 6.718 [address] [place] [address] 14 Apr, 2016 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 [place] [address] [address] Mar, [place] [address] [address] Mar, long-term (current) use of anticoagulant s Z79.01 [place] [address] [address] Mar, Hypertriglyceridemia E78.1 and long-term (current) use of anticoagulants Z79.01 [place] [address] [address] Feb, long-term (current) use of anticoagulant s Z79.01 [place] [address] [address] Feb, long-term (current) use of anticoagulant s Z79.01 [place] [address] [address] Feb, 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 [address] [address] [address] Dec, [place] [address] [address] Nov, [place] [address] [address] Nov, History of DVT (deep vein thrombosis) Z8 6.718 ; Tremulousness R25.1 ; Generalized anxiety disorder F41.1 ; Peripheral edema R60.9 and Hypertriglyceridemia E78.1 [place] [address] [address] Oct, History of DVT (deep vein thrombosis) Z8 6.718 [place] [address] [address] Oct, [place] [address] [address] Sep, History of DVT (deep vein thrombosis) Z8 6.718 [address] [address] [address] Sep, long-term (current) use of anticoagulant s Z79.01 [place] [address] [address] July, [place] [address] [address] July, 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 [place] [address] [address] July, long-term (current) use of anticoagulant s Z79.01 [address] [address] [address] Jun, 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 [facility] [address] [address] Jun, Coccyx pain M53.3 ; Encounte r for therapeutic drug level monitoring Z51.81 and long-term current use 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.[address] [address] May, Abnormal mammogram R92.8 [facility] [place] [id number] [place] [address] May, [facility] [address] [place] [address] May, Acute vaginitis N76.0 and En counter for other screening for malignant neoplasm of breast Z12.39 [place] [address] [address] Apr, [place] [address] [address] Apr, [place] [address] [address] Apr, Peripheral edema R60.9 [place] [address] [address] Apr, long-term (current) use of anticoagulant s Z79.01 [place] [address] [address] Apr, Peripheral edema R60.9 and long-term (cu rrent) use of anticoagulants Z79.01 [address] [address] [address] Apr, long-term (current) use of anticoagulant s Z79.01 [place] [address] [address] Apr, [place] [address] [address] Apr, 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 [place] [address] [address] Apr, Peripheral edema R60.9 [place] [address] [address] Mar, 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 [address] [address] [address] Mar, 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 and Hypertriglyceridemia E78.1 [place] [address] [address] Mar, 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 [address] [address] [address] Mar, long-term (current) use of anticoagulant s Z79.01 [place] [address] [address] Mar, [place] [address] [address] Mar, long-term (current) use of anticoagulant s Z79.01 ; Hypertriglyceridemia E78.1 ; Personal history of venous thrombosis and embolism Z86.718 and Lump R22.9 [address] [address] [address] Mar, Personal history of venous thrombosis an d embolism Z86.718 [place] [address] [address] Mar, Personal history of venous thrombosis an d embolism Z86.718 [place] [address] [address] Mar, [place] [address] [address] Dec, Personal history of venous thrombosis an d embolism Z86.718 [place] [address] [address] Dec, Personal history of venous thrombosis an d embolism V12.51 [place] [address] [address] Nov, Personal history of venous thrombosis an d embolism V12.51 [place] [address] [address] 25 Nov, 2014 Personal history of venous thrombosis an d embolism V12.51 [place] [address] [address] 17 Nov, 2014 Personal history of venous thrombosis an d embolism V12.51 [place] [id number] [place] [address] Nov, Personal history of venous thrombosis an d embolism V12.51 [facility] [id number] [place] [address] Nov, [facility] [address] [address] Oct, Dysuria 788.1 [facility] [address] [address] Oct, Personal history of venous thrombosis an d embolism V12.51 [facility] [address] [address] Oct, [facility] [address] [address] Oct, Personal history of venous thrombosis an d embolism V12.51 [place] [address] [address] Sep, Personal history of venous thrombosis an d embolism V12.51 [place] [id number] [address] Sep, Personal history of venous thrombosis an d embolism V12.51 [place] [address] [address] Aug, Personal history of venous thrombosis an d embolism V12.51 [place] [address] [address] Aug, Personal history of venous thrombosis an d embolism V12.51 [place] [address] [address] Aug, Personal history of venous thrombosis an d embolism V12.51 [place] [id number] [place] [address] July, Generalized anxiety disorder 300.02 ; Ab dominal pain, left lower quadrant 789.04 and Personal history of venous thrombosis and embolism V12.51 [place] [address] [place] [address] 14 Jun, 2014 [facility] [address] [facility] [id number] [place] [address] Jun, [facility] [address] [id number] [place] [address] May, [facility] [address] [id number] [place] [address] May, [facility] [address] [id number] [place] [address] May, [facility] [address] [facility] [id number] [place] [address] May, [facility] [address] [id number] [place] [address] May, [facility] [address] [id number] [place] [address] May, [facility] [address] [id number] [place] [address] May, [facility] [address] [id number] [place] [address] May, [facility] [address] [id number] [place] [address] Apr, [facility] [address] [id number] [place] [address] Apr, [facility] [address] [id number] [place] [address] Apr, [facility] [address] [facility] [id number] [place] [address] Apr, [facility] [address] [id number] [place] [address] Apr, [facility] [address] [id number] [place] [address] Mar, [facility] [address] [id number] [place] [address] Mar, [facility] [address] [id number] [place] [address] Mar, [facility] [address] [id number] [place] [address] Mar, [facility] [address] [id number] [place] [address] Mar, [facility] [address] [id number] [place] [address] Mar, [facility] [address] [id number] [place] [address] Feb, [facility] [address] [id number] [place] [address] Feb, [facility] [address] [id number] [place] [address] Feb, [facility] [address] [id number] [place] [address] Feb, [facility] [address] [id number] [place] [address] Feb, [facility] [address] [id number] [place] [address] Feb, [facility] [address] [id number] [place] [address] Feb, [facility] [address] [id number] [place] [address] Feb, [facility] [address] [id number] [place] [address] Feb, [facility] [address] [id number] [place] [address] Feb, [facility] [address] [id number] [place] [address] Jan, [facility] [address] [id number] [place] [address] Jan, [facility] [address] [id number] [place] [address] Jan, [facility] [address] [facility] [id number] [place] [address] Jan, [facility] [address] [id number] [place] [address] Jan, [facility] [address] [id number] [place] [address] Jan, [facility] [address] [id number] [place] [address] Jan, [facility] [address] [id number] [place] [address] Jan, [facility] [address] [id number] [place] [address] Jan, [facility] [address] [id number] [place] [address] Jan, [facility] [address] [id number] [place] [address] Dec, [facility] [address] [id number] [place] [address] Dec, [facility] [address] [id number] [place] [address] Dec, [facility] [address] [id number] [place] [address] Dec, [facility] [address] [id number] [place] [address] Dec, [facility] [address] [facility] [id number] [place] [address] Dec, [facility] [address] [id number] [place] [address] Dec, [facility] [address] [id number] [place] [address] Dec, [facility] [address] [id number] [place] [address] Dec, [facility] [address] [id number] [place] [address] 10 Dec, 2013 [facility] [address] [id number] [place] [address] Dec, [facility] [address] [id number] [place] [address] Dec, [facility] [address] [id number] [place] [address] Dec, [facility] [address] [id number] [place] [address] Dec, [facility] [address] [id number] [place] [address] Dec, [facility] [address] [id number] [place] [address] 30 Nov, 2013 [facility] [address] [id number] [place] [address] 30 Sep, 2013 [facility] [address] [id number] [place] [address] 26 Sep, 2013 [facility] [address] [id number] [place] [address] 26 Sep, 2013 [facility] [address] [id number] [place] [address] 24 Sep, 2013 [facility] [address] [id number] [place] [address] 24 Sep, 2013 [facility] [address] [id number] [place] [address] 23 Sep, 2013 [facility] [address] [id number] [place] [address] 23 Sep, 2013 [facility] [address] [id number] [place] [address] 18 Sep, 2013 [facility] [address] [id number] [place] [address] 18 Sep, 2013 [facility] [address] [id number] [place] [address] 17 Sep, 2013 [facility] [address] [id number] [place] [address] 17 Nov, 2013 [facility] [address] [facility] [id number] [facility] [place] [address] 11 Nov, 2013 [facility] [address] [facility] [id number] [place] [address] 11 Nov, 2013 [facility] [address] [id number] [facility] [place] [address] 10 Nov, 2013 [facility] [address] [facility] [id number] [place] [address] 10 Nov, 2013 [facility] [address] [id number] [place] [address] 08 Nov, 2013 [facility] [address] [id number] [place] [address] 08 Nov, 2013 [facility] [address] [id number] [place] [address] Sep, 2013 [facility] [address] [facility] [id number] [place] [address] Sep, 2013 [facility] [address] [id number] [place] [address] Sep, 2013 [facility] [address] [id number] [place] [address] Sep, 2013 [facility] [address] [id number] [place] [address] Sep, 2013 [facility] [address] [facility] [id number] [place] [address] Sep, 2013 [facility] [address] [id number] [place] [address] Aug, [facility] [address] [facility] [id number] [place] [address] Aug, [facility] [address] [id number] [place] [address] Aug, 2013 [facility] [address] [facility] [id number] [facility] [place] [address] Aug, [facility] [address] [facility] [id number] [facility] [place] [address] Aug, [facility] [address] [facility] [id number] [facility] [place] [address] Aug, [facility] [address] [id number] [place] [address] Aug, [facility] [address] [id number] [facility] [place] [address] Aug, [facility] [address] [facility] [id number] [facility] [place] [address] Aug, [facility] [address] [id number] [place] [address] Aug, [facility] [address] [id number] [place] [address] Aug, [facility] [address] [id number] [place] [address] July, [facility] [address] [id number] [place] [address] July, [facility] [address] [id number] [place] [address] Jun, [facility] [address] [id number] [place] [address] Jun, [facility] [address] [id number] [place] [address] Jun, [facility] [address] [facility] [id number] [place] [address] Jun, [facility] [address] [id number] [place] [address] Jun, [facility] [address] [id number] [place] [address] Jun, [facility] [address] [id number] [place] [address] 15 Jun, 2013 [facility] [address] [id number] [place] [address] 15 Jun, 2013 [facility] [address] [facility] [id number] [place] [address] 11 Jun, 2013 [facility] [address] [id number] [place] [address] 11 Jun, 2013 [facility] [address] [id number] [place] [address] 10 Jun, 2013 [facility] [address] [id number] [place] [address] 10 Jun, 2013 [facility] [address] [id number] [place] [address] 25 May, 2013 [facility] [address] [id number] [place] [address] May, [facility] [address] [id number] [place] [address] May, [facility] [address] [id number] [place] [address] May, [facility] [address] [id number] [place] [address] May, [facility] [address] [id number] [place] [address] May, [facility] [address] [id number] [place] [address] May, [facility] [address] [id number] [place] [address] May, [facility] [address] [id number] [place] [address] May, [facility] [address] [id number] [place] [address] May, [facility] [address] [id number] [place] [address] May, [facility] [address] [id number] [place] [address] May, [facility] [address] [id number] [place] [address] Apr, [facility] [address] [id number] [place] [address] Apr, [facility] [address] [id number] [place] [address] Apr, [facility] [address] [id number] [place] [address] Apr, [facility] [address] [id number] [place] [address] Apr, [facility] [address] [id number] [place] [address] Apr, [facility] [address] [id number] [place] [address] Apr, [facility] [address] [id number] [place] [address] Apr, [facility] [address] [id number] [place] [address] Apr, [facility] [address] [id number] [place] [address] Apr, [facility] [address] [id number] [place] [address] Apr, [facility] [address] [id number] [place] [address] Apr, [facility] [address] [id number] [place] [address] Apr, [facility] [address] [id number] [place] [address] Apr, [facility] [address] [id number] [place] [address] Apr, [facility] [address] [id number] [place] [address] Apr, [facility] [address] [id number] [place] [address] Apr, [facility] [address] [id number] [place] [address] Jan, [facility] [address] [id number] [place] [address] Jan, [facility] [address] [id number] [place] [address] Jan, [facility] [address] [id number] [place] [address] Jan, [facility] [address] [id number] [place] [address] Jan, [facility] [address] [id number] [place] [address] Jan, [facility] [address] [id number] [place] [address] Jan, [facility] [address] [id number] [place] [address] Dec, [facility] [address] [id number] [place] [address] Dec, [facility] [address] [id number] [place] [address] Dec, [facility] [address] [id number] [place] [address] 10 Nov, 2012 [facility] [address] [id number] [place] [address] 10 Nov, 2012 [facility] [address] [id number] [place] [address] 05 Nov, 2012 [facility] [address] [id number] [place] [address] 04 Nov, 2012 [facility] [address] [id number] [place] [address] Oct, [facility] [address] [id number] [place] [address] Oct, [facility] [address] [facility] [id number] [facility] [place] [address] Oct, [facility] [address] [facility] [id number] [facility] [place] [address] Oct, [facility] [address] [id number] [facility] [place] [address] Oct, [facility] [address] [id number] [facility] [place] [address] Sep, [facility] [address] [facility] [id number] [facility] [place] [address] Sep, [facility] [address] [id number] [facility] [place] [address] Sep, [facility] [address] [id number] [place] [address] Sep, [facility] [address] [id number] [facility] [place] [address] Sep, [facility] [address] [id number] [facility] [place] [address] Sep, [facility] [address] [id number] [place] [address] Sep, [facility] [address] [id number] [place] [address] Aug, [facility] [address] [id number] [place] [address] Aug, [facility] [address] [id number] [facility] [place] [address] July, [facility] [address] [id number] [place] [address] Jun, [facility] [address] [id number] [place] [address] Jun, [facility] [address] [id number] [place] [address] Jun, [facility] [address] [id number] [place] [address] Apr, [facility] [address] [id number] [place] [address] Apr, [facility] [address] [id number] [place] [address] Apr, [facility] [address] [id number] [place] [address] Mar, [facility] [address] [id number] [place] [address] Mar, [facility] [address] [id number] [place] [address] Mar, [facility] [address] [id number] [place] [address] Mar, [facility] [address] [id number] [place] [address] Mar, [facility] [address] [id number] [place] [address] 14 Feb, 2012 [facility] [address] [id number] [place] [address] 14 Feb, 2012 [facility] [address] [id number] [place] [address] Jan, [facility] [address] [id number] [place] [address] 13 Jan, 2012 [facility] [address] [id number] [place] [address] 13 Jan, 2012 [facility] [address] [id number] [place] [address] 13 Jan, 2012 [facility] [address] [id number] [place] [address] 07 Jan, 2012 [facility] [address] [id number] [place] [address] 07 Jan, 2012 [facility] [address] [id number] [place] [address] Jan, [facility] [address] [id number] [place] [address] Dec, [facility] [address] [id number] [place] [address] Dec, [facility] [address] [id number] [place] [address] Dec, [facility] [address] [id number] [place] [address] Dec, [facility] [address] [id number] [place] [address] Dec, [facility] [address] [id number] [place] [address] Dec, [facility] [address] [id number] [place] [address] Dec, [facility] [address] [id number] [place] [address] Dec, [facility] [address] [id number] [place] [address] Dec, [facility] [address] [id number] [place] [address] Dec, [facility] [address] [id number] [place] [address] Oct, [facility] [address] [id number] [place] [address] Oct, [facility] [address] [id number] [place] [address] Aug, [facility] [address] [id number] [place] [address] Aug, [facility] [address] [id number] [place] [address] July, [facility] [address] [id number] [place] [address] Jun, [facility] [address] [id number] [place] [address] Jun, [facility] [address] [id number] [place] [address] May, [facility] [address] [id number] [place] [address] Apr, [facility] [address] [id number] [place] [address] Apr, [facility] [id number] [place] [address] Mar, [facility] [address] [id number] [place] [address] Mar, [facility] [id number] [place] [address] Feb, [facility] [id number] [place] [address] 15 Feb, 2011 [facility] [id number] [place] [address] Feb, [facility] [address] [id number] [place] [address] Feb, [facility] [id number] [place] [address] Jan, [facility] [address] [id number] [place] [address] 17 Dec, 2010 [facility] [id number] [place] [address] 08 Feb, 2010 [facility] [address] [id number] [place] [address] Feb, [facility] [id number] [place] [address] Feb, [facility] [address] [id number] [place] [address] Feb, [facility] [address] [id number] [place] [address] 15 Dec, 2009 [facility] [address] [id number] [place] [address] Dec, [facility] [address] [id number] [place] [address] Oct, [facility] [address] [id number] [place] [address] Jun, [facility] [address] [id number] [place] [address] Feb, [facility] [address] [id number] [place] [address] Feb, [facility] [address] [id number] [place] [address] Feb, [facility] [address] [id number] [place] [address] Dec, IMMUNIZATIONS No Known Immunizations SOCIAL HISTORY Never Assessed REASON FOR VISIT PLAN OF CARE VITAL SIGNS Height 64 in 2013-06-21 Weight 203.5 lbs 2013-06-21 Temperature 97.9 degrees Fahrenheit 2013-06-21 Heart Rate 80 bpm 2013-06-21 Respiratory Rate 18 2013-06-21 Blood pressure systolic 104 mmHg 2013-06-21 Blood pressure diastolic 70 mmHg 2013-06-21 MEDICATIONS Unknown Medications RESULTS No Results PROCEDURES [...]
--- OUTSIDE RECORDS SUMMARY | 2019-10-19 12:52 | XMS REPORT ---
Author Author Mary Jane Donohue Organization [facility] Address [address] [place] [address] Care Team Providers Care Roll Shop Supervisor Name Role Phone JAIM Donohue Unavailable PROBLEMS Type Condition ICD9-CM Code RBP37-ZU Code Onset Dates Condition S tatus SNOMED Code Problem Thyroid follicular adenoma D34 Act phylicia 175723718 Problem History of DVT (deep vein thrombosis) Z86.718 Active 271021265 Problem Factor V Leiden D68.51 Active 3070 54804 Problem care home (current) use of anticoagulants Z79.01 Active 511310545 Problem Hypertriglyceridemia E78.1 Active 031199342 Problem 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 Active 025118086 Problem Pelvic pain R10.2 Active 13277382 Problem Peripheral edema R60.9 Active 271 850260 Problem Moderate episode of recurrent major depressive disorder F33.1 Active 591918901 Problem Presence of IVC filter Z95.828 Active 489400593 Problem Vitamin D deficiency E55.9 Active 25346155 Problem Generalized anxiety disorder F41.1 A ctive 985951106 Problem Excessive daytime sleepiness G47.19 A ctive 313044831256 Problem Gastroesophageal reflux disease, esophagitis pre sence not specified K21.9 Active 657039771 Problem Thyroid nodule E04.1 Active 44460 5005 Problem Morbid obesity E66.01 Active 71522 6002 ALLERGIES No Information ENCOUNTERS Encounter Location Date Diagnosis [facility] [id number] [place] [address] 12 Apr, 2019 Back pain with history of spinal surgery M54.9 [facility] [address] [address] 11 Apr, 2019 [facility] [id number] [place] [address] 10 Apr, 2019 Gastroenteritis K52.9 ; Back pain with h istory of spinal surgery M54.9 and Dermatofibroma of lower leg, unspecified laterality D23.70 [place] [address] [address] Mar, [place] [address] [address] Jan, [place] [address] [address] Jan, [place] [address] [address] Dec, Encounter for weight management Z76.89 [place] [address] [address] Dec, Encounter for weight management Z76.89 a nd Screening mammogram, encounter for Z12.31 [place] [address] [address] Nov, Encounter for weight management Z76.89 [place] [address] [address] Nov, Thyroid nodule E04.1 [place] [address] [address] Nov, Thyroid nodule E04.1 [place] [address] [address] Nov, Thyroid nodule E04.1 [place] [address] [address] Oct, Syncope, unspecified syncope type R55 an d Encounter for weight management Z76.89 [place] [address] [address] Oct, Morbid obesity E66.01 [place] [address] [address] Oct, Hypertriglyceridemia E78.1 [place] [address] [address] Oct, [facility] [address] [address] Oct, Hypertriglyceridemia E78.1 [facility] [address] [address] Sep, Hypertriglyceridemia E78.1 and Vitamin D deficiency E55.9 [facility] [address] [address] Sep, [facility] [address] [address] Sep, Morbid obesity E66.01 ; Moderate episode of recurrent major depressive disorder F33.1 ; Hypertriglyceridemia E78.1 and Vitamin D deficiency E55.9 [facility] [address] [address] Aug, [facility] [address] [address] July, [facility] [address] [address] July, [facility] [address] [address] Jun, [facility] [address] [address] Jun, [facility] [address] [address] Jun, Closed compression fracture of L3 lumbar vertebra with routine healing, subsequent encounter S32.030D and Drug-induced constipation K59.03 [facility] [address] [address] Jun, [facility] [address] [address] Jun, [facility] [address] [address] Apr, [facility] [address] [address] Apr, Morbid obesity E66.01 [facility] [address] [address] 12 Apr, 2018 Morbid obesity E66.01 ; Hypertriglycerid emia E78.1 ; Gastroesophageal reflux disease, esophagitis presence not specified K21.9 and Joint pain M25.50 [facility] [address] [address] Feb, [facility] [address] [address] Feb, [facility] [address] [facility] [id number] [address] [place] [address] Jan, Acute bacterial conjunctivit is H10.30 [place] [address] [address] 08 Dec, 2017 [place] [address] [address] 04 Dec, 2017 [place] [address] [address] 17 Nov, 2017 [place] [address] [address] 07 Nov, 2017 Obstructive sleep apnea G47.33 ; Morbid obesity E66.01 and Gastroesophageal reflux disease, esophagitis presence not specified K21.9 [facility] [address] [id number] [place] [id number] 06 Nov, 2017 Encounter for examination of eyes and vi ray without abnormal findings Z01.00 [place] [address] [address] 31 Oct, 2017 Thyroid nodule E04.1 and Screening for b reast cancer Z12.[address] [address] 23 Oct, 2017 History of DVT (deep vein thrombosis) Z8 6.718 ; Thyroid nodule E04.1 and Gastroesophageal reflux disease, esophagitis presence not specified K21.9 [place] [address] [address] Oct, [place] [address] [address] Sep, [place] [address] [address] Aug, [place] [address] [address] Aug, [place] [address] [address] Aug, Acute pain of left shoulder M25.512 and Thyroid nodule E04.[address] [address] July, Superior glenoid labrum lesion of left mehdi roy, subsequent encounter S43.432D [place] [address] [address] Jun, History of DVT (deep vein thrombosis) Z8 6.718 [place] [address] [address] Jun, History of DVT (deep vein thrombosis) Z8 6.718 [place] [address] [address] Jun, Impingement syndrome, shoulder, left M75 .42 [place] [address] [address] May, Subacromial bursitis of left shoulder saurabh int M75.52 [place] [address] [address] May, [address] [address] May, Hypertriglyceridemia E78.1 ; care home ( current) use of anticoagulants Z79.01 and Excessive daytime sleepiness G47.19 [place] [address] [address] May, History of DVT (deep vein thrombosis) Z8 6.718 ; Generalized anxiety disorder F41.1 ; Hypertriglyceridemia E78.1 ; 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 ; Subacromial bursitis of left shoulder joint M75.52 and Excessive daytime sleepiness G47.19 [place] [address] [address] May, [place] [address] [address] May, care home (current) use of anticoagulant s Z79.01 [place] [address] [address] 23 Apr, 2017 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 [place] [address] [address] Apr, care home (current) use of anticoagulant s Z79.01 [place] [address] [address] Apr, 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 [place] [address] [address] Apr, [place] [address] [address] 16 Apr, 2017 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 [place] [address] [address] 13 Apr, 2017 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 [place] [address] [address] Apr, care home (current) use of anticoagulant s Z79.01 [place] [address] [address] Apr, 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 [place] [address] [address] 07 Apr, 2017 care home (current) use of anticoagulant s Z79.01 [facility] [address] [address] Apr, care home (current) use of anticoagulant s Z79.01 [facility] [address] [address] Mar, care home (current) use of anticoagulant s Z79.01 [facility] [address] [address] Mar, [facility] [address] [address] Mar, care home (current) use of anticoagulant s Z79.01 [facility] [address] [id number] Jan, Dental examination Z01.20 [facility] [address] [id number] Jan, [facility] [address] [address] Jan, care home (current) use of anticoagulant s Z79.01 [place] [address] [address] Jan, History of DVT (deep vein thrombosis) Z8 6.718 [place] [address] [address] Jan, Generalized anxiety disorder F41.1 and P eripheral edema R60.9 [facility] [address] [address] Nov, History of DVT (deep vein thrombosis) Z8 6.718 [place] [address] [address] Nov, care home (current) use of anticoagulant s Z79.01 [facility] [address] 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 [place] [address] [address] Sep, care home (current) use of anticoagulant s Z79.01 [place] [address] [address] Sep, Generalized anxiety disorder F41.1 and H istory of DVT (deep vein thrombosis) Z86.718 [place] [address] [address] Aug, History of DVT (deep vein thrombosis) Z8 6.718 ; Generalized anxiety disorder F41.1 ; care home (current) use of anticoagulants Z79.01 ; Pelvic pain R10.2 ; Hypertriglyceridemia E78.1 ; Excessive daytime sleepiness G47.19 ; Colon cancer screening Z12.11 ; Screening for breast cancer Z12.39 ; Peripheral edema R60.9 and Gastroesophageal reflux disease, esophagitis presence not specified K21.9 [place] [address] [address] Aug, [place] [address] [address] July, [place] [address] [address] July, History of DVT (deep vein thrombosis) Z8 6.718 [place] [address] [address] Jun, Generalized anxiety disorder F41.1 [place] [address] [address] Jun, History of DVT (deep vein thrombosis) Z8 6.718 [place] [address] [address] Jun, History of DVT (deep vein thrombosis) Z8 6.718 [place] [address] [address] Jun, History of DVT (deep vein thrombosis) Z8 6.718 [place] [address] [address] Jun, History of DVT (deep vein thrombosis) Z8 6.718 [place] [address] [address] May, History of DVT (deep vein thrombosis) Z8 6.718 [place] [address] [address] May, 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 [place] [address] [address] Mar, [place] [address] [address] Mar, care home (current) use of anticoagulant s Z79.01 [place] [address] [address] Mar, Hypertriglyceridemia E78.1 and care home (current) use of anticoagulants Z79.01 [place] [address] [address] Feb, care home (current) use of anticoagulant s Z79.01 [place] [address] [address] Feb, care home (current) use of anticoagulant s Z79.01 [place] [address] [address] Feb, 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 [place] [address] [address] Dec, [place] [address] [address] Nov, [place] [address] [address] Nov, History of DVT (deep vein thrombosis) Z8 6.718 ; Tremulousness R25.1 ; Generalized anxiety disorder F41.1 ; Peripheral edema R60.9 and Hypertriglyceridemia E78.1 [place] [address] [address] Oct, History of DVT (deep vein thrombosis) Z8 6.718 [place] [address] [address] Oct, [place] [address] [address] Sep, History of DVT (deep vein thrombosis) Z8 6.718 [place] [address] [address] Sep, care home (current) use of anticoagulant s Z79.01 [place] [address] [address] July, [place] [address] [address] July, 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 [place] [address] [address] July, care home (current) use of anticoagulant s Z79.01 [place] [address] [address] Jun, 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 [facility] [address] [address] Jun, Coccyx pain M53.3 ; Encounte r for therapeutic drug level monitoring Z51.81 and care home current use 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.[address] [address] May, Abnormal mammogram R92.8 [facility] [place] [id number] [place] [address] May, [facility] [address] [place] [address] May, Acute vaginitis N76.0 and En counter for other screening for malignant neoplasm of breast Z12.39 [place] [address] [address] Apr, [place] [address] [address] Apr, [place] [address] [address] Apr, Peripheral edema R60.9 [place] [address] [address] Apr, care home (current) use of anticoagulant s Z79.01 [place] [address] [address] Apr, Peripheral edema R60.9 and care home (cu rrent) use of anticoagulants Z79.01 [place] [address] [address] Apr, care home (current) use of anticoagulant s Z79.01 [place] [address] [address] Apr, [place] [address] [address] Apr, 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 [place] [address] [address] Apr, Peripheral edema R60.9 [place] [address] [address] Mar, 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 [place] [address] [address] Mar, 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 and Hypertriglyceridemia E78.1 [place] [address] [address] Mar, 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 [place] [address] [address] Mar, care home (current) use of anticoagulant s Z79.01 [place] [address] [address] Mar, [place] [address] [address] Mar, care home (current) use of anticoagulant s Z79.01 ; Hypertriglyceridemia E78.1 ; Personal history of venous thrombosis and embolism Z86.718 and Lump R22.9 [place] [address] [address] Mar, Personal history of venous thrombosis an d embolism Z86.718 [place] [address] [address] Mar, Personal history of venous thrombosis an d embolism Z86.718 [place] [address] [address] Mar, [place] [address] [address] Dec, Personal history of venous thrombosis an d embolism Z86.718 [place] [address] [address] Dec, Personal history of venous thrombosis an d embolism V12.51 [place] [address] [address] Nov, Personal history of venous thrombosis an d embolism V12.51 [place] [address] [address] 25 Nov, 2014 Personal history of venous thrombosis an d embolism V12.51 [place] [address] [address] 17 Nov, 2014 Personal history of venous thrombosis an d embolism V12.51 [place] [id number] [place] [address] Nov, Personal history of venous thrombosis an d embolism V12.51 [facility] [id number] [place] [address] Nov, [facility] [address] [address] Oct, Dysuria 788.1 [facility] [address] [address] Oct, Personal history of venous thrombosis an d embolism V12.51 [facility] [address] [address] Oct, [facility] [address] [address] Oct, Personal history of venous thrombosis an d embolism V12.51 [place] [address] [address] Sep, Personal history of venous thrombosis an d embolism V12.51 [place] [id number] [place] [address] Sep, Personal history of venous thrombosis an d embolism V12.51 [place] [address] [address] Aug, Personal history of venous thrombosis an d embolism V12.51 [place] [address] [address] Aug, Personal history of venous thrombosis an d embolism V12.51 [place] [address] [address] Aug, Personal history of venous thrombosis an d embolism V12.51 [place] [id number] [place] [address] July, Generalized anxiety disorder 300.02 ; Ab dominal pain, left lower quadrant 789.04 and Personal history of venous thrombosis and embolism V12.51 [place] [address] [place] [address] 14 Jun, 2014 [facility] [address] [facility] [id number] [place] [address] Jun, [facility] [address] [id number] [place] [address] May, [facility] [address] [id number] [place] [address] May, [facility] [address] [id number] [place] [address] May, [facility] [address] [facility] [id number] [place] [address] May, [facility] [address] [id number] [place] [address] May, [facility] [address] [id number] [place] [address] May, [facility] [address] [id number] [place] [address] May, [facility] [address] [id number] [place] [address] May, [facility] [address] [id number] [place] [address] Apr, [facility] [address] [id number] [place] [address] Apr, [facility] [address] [id number] [place] [address] Apr, [facility] [address] [facility] [id number] [place] [address] Apr, [facility] [address] [id number] [place] [address] Apr, [facility] [address] [id number] [place] [address] Mar, [facility] [address] [id number] [place] [address] Mar, [facility] [address] [id number] [place] [address] Mar, [facility] [address] [id number] [place] [address] Mar, [facility] [address] [id number] [place] [address] Mar, [facility] [address] [id number] [place] [address] Mar, [facility] [address] [id number] [place] [address] Feb, [facility] [address] [id number] [place] [address] Feb, [facility] [address] [id number] [place] [address] Feb, [facility] [address] [id number] [place] [address] Feb, [facility] [address] [id number] [place] [address] Feb, [facility] [address] [id number] [place] [address] Feb, [facility] [address] [id number] [place] [address] Feb, [facility] [address] [id number] [place] [address] Feb, [facility] [address] [id number] [place] [address] Feb, [facility] [address] [id number] [place] [address] Feb, [facility] [address] [id number] [place] [address] Jan, [facility] [address] [id number] [place] [address] Jan, [facility] [address] [id number] [place] [address] Jan, [facility] [address] [facility] [id number] [place] [address] Jan, [facility] [address] [id number] [place] [address] Jan, [facility] [address] [id number] [place] [address] Jan, [facility] [address] [id number] [place] [address] Jan, [facility] [address] [id number] [place] [address] Jan, [facility] [address] [id number] [place] [address] Jan, [facility] [address] [id number] [place] [address] Jan, [facility] [address] [id number] [place] [address] Dec, [facility] [address] [id number] [place] [address] Dec, [facility] [address] [id number] [place] [address] Dec, [facility] [address] [id number] [place] [address] Dec, [facility] [address] [id number] [place] [address] Dec, [facility] [address] [facility] [id number] [place] [address] Dec, [facility] [address] [id number] [place] [address] Dec, [facility] [address] [id number] [place] [address] Dec, [facility] [address] [id number] [place] [address] Dec, [facility] [address] [id number] [place] [address] 10 Dec, 2013 [facility] [address] [id number] [place] [address] Dec, [facility] [address] [id number] [place] [address] Dec, [facility] [address] [id number] [place] [address] Dec, [facility] [address] [address] [id number] [place] [address] Dec, [facility] [address] [id number] [place] [address] Dec, [facility] [address] [id number] [place] [address] 30 Nov, 2013 [facility] [address] [id number] [place] [address] 30 Sep, 2013 [facility] [address] [id number] [place] [address] 26 Sep, 2013 [facility] [address] [id number] [place] [address] 26 Sep, 2013 [facility] [address] [id number] [place] [address] 24 Sep, 2013 [facility] [address] [id number] [place] [address] 24 Sep, 2013 [facility] [address] [id number] [place] [address] 23 Sep, 2013 [facility] [address] [id number] [place] [address] 23 Sep, 2013 [facility] [address] [id number] [place] [address] 18 Sep, 2013 [facility] [address] [id number] [place] [address] 18 Sep, 2013 [facility] [address] [id number] [place] [address] 17 Sep, 2013 [facility] [address] [id number] [place] [address] 17 Nov, 2013 [facility] [address] [facility] [id number] [facility] [place] [address] 11 Nov, 2013 [facility] [address] [facility] [id number] [place] [address] 11 Nov, 2013 [facility] [address] [id number] [facility] [place] [address] 10 Nov, 2013 [facility] [address] [facility] [id number] [place] [address] 10 Nov, 2013 [facility] [address] [id number] [place] [address] 08 Nov, 2013 [facility] [address] [id number] [place] [address] 08 Nov, 2013 [facility] [address] [id number] [place] [address] Sep, 2013 [facility] [address] [facility] [id number] [place] [address] Sep, 2013 [facility] [address] [id number] [place] [address] Sep, 2013 [facility] [address] [id number] [place] [address] Sep, 2013 [facility] [address] [id number] [place] [address] Sep, 2013 [facility] [address] [facility] [id number] [place] [address] Sep, 2013 [facility] [address] [id number] [place] [address] Aug, [facility] [address] [facility] [id number] [place] [address] Aug, [facility] [address] [id number] [place] [address] Aug, 2013 [facility] [address] [facility] [id number] [facility] [place] [address] Aug, [facility] [address] [facility] [id number] [facility] [place] [address] Aug, [facility] [address] [facility] [id number] [facility] [place] [address] Aug, [facility] [address] [id number] [place] [address] Aug, [facility] [address] [id number] [facility] [place] [address] Aug, [facility] [address] [facility] [id number] [facility] [place] [address] Aug, [facility] [address] [id number] [place] [address] Aug, [facility] [address] [id number] [place] [address] Aug, [facility] [address] [id number] [place] [address] July, [facility] [address] [id number] [place] [address] July, [facility] [address] [id number] [place] [address] Jun, [facility] [address] [id number] [place] [address] Jun, [facility] [address] [id number] [place] [address] Jun, [facility] [address] [facility] [id number] [place] [address] Jun, [facility] [address] [id number] [place] [address] Jun, [facility] [address] [id number] [place] [address] Jun, [facility] [address] [id number] [place] [address] 15 Jun, 2013 [facility] [address] [id number] [place] [address] 15 Jun, 2013 [facility] [address] [facility] [id number] [place] [address] 11 Jun, 2013 [facility] [address] [id number] [place] [address] 11 Jun, 2013 [facility] [address] [id number] [place] [address] 10 Jun, 2013 [facility] [address] [id number] [place] [address] 10 Jun, 2013 [facility] [address] [id number] [place] [address] 25 May, 2013 [facility] [address] [id number] [place] [address] May, [facility] [address] [id number] [place] [address] May, [facility] [address] [id number] [place] [address] May, [facility] [address] [id number] [place] [address] May, [facility] [address] [id number] [place] [address] May, [facility] [address] [id number] [place] [address] May, [facility] [address] [id number] [place] [address] May, [facility] [address] [id number] [place] [address] May, [facility] [address] [id number] [place] [address] May, [facility] [address] [id number] [place] [address] May, [facility] [address] [id number] [place] [address] May, [facility] [address] [id number] [place] [address] Apr, [facility] [address] [id number] [place] [address] Apr, [facility] [address] [id number] [place] [address] Apr, [facility] [address] [id number] [place] [address] Apr, [facility] [address] [id number] [place] [address] Apr, [facility] [address] [id number] [place] [address] Apr, [facility] [address] [id number] [place] [address] Apr, [facility] [address] [id number] [place] [address] Apr, [facility] [address] [id number] [place] [address] Apr, [facility] [address] [id number] [place] [address] Apr, [facility] [address] [id number] [place] [address] Apr, [facility] [address] [id number] [place] [address] Apr, [facility] [address] [id number] [place] [address] Apr, [facility] [address] [id number] [place] [address] Apr, [facility] [address] [id number] [place] [address] Apr, [facility] [address] [id number] [place] [address] Apr, [facility] [address] [id number] [place] [address] Apr, [facility] [address] [id number] [place] [address] Jan, [facility] [address] [id number] [place] [address] Jan, [facility] [address] [id number] [place] [address] Jan, [facility] [address] [id number] [place] [address] Jan, [facility] [address] [id number] [place] [address] Jan, [facility] [address] [id number] [place] [address] Jan, [facility] [address] [id number] [place] [address] Jan, [facility] [address] [id number] [place] [address] Dec, [facility] [address] [id number] [place] [address] Dec, [facility] [address] [id number] [place] [address] Dec, [facility] [address] [id number] [place] [address] 10 Nov, 2012 [facility] [address] [id number] [place] [address] 10 Nov, 2012 [facility] [address] [id number] [place] [address] 05 Nov, 2012 [facility] [address] [id number] [place] [address] 04 Nov, 2012 [facility] [address] [id number] [place] [address] Oct, [facility] [address] [id number] [place] [address] Oct, [facility] [address] [facility] [id number] [facility] [place] [address] Oct, [facility] [address] [facility] [id number] [facility] [place] [address] Oct, [facility] [address] [id number] [facility] [place] [address] Oct, [facility] [address] [id number] [facility] [place] [address] Sep, [facility] [address] [facility] [id number] [facility] [place] [address] Sep, [facility] [address] [id number] [facility] [place] [address] Sep, [facility] [address] [id number] [place] [address] Sep, [facility] [address] [id number] [facility] [place] [address] Sep, [facility] [address] [id number] [facility] [place] [address] Sep, [facility] [address] [id number] [place] [address] Sep, [facility] [address] [id number] [place] [address] Aug, [facility] [address] [id number] [place] [address] Aug, [facility] [address] [id number] [facility] [place] [address] July, [facility] [address] [id number] [place] [address] Jun, [facility] [address] [id number] [place] [address] Jun, [facility] [address] [id number] [place] [address] Jun, [facility] [address] [id number] [place] [address] Apr, [facility] [address] [id number] [place] [address] Apr, [facility] [address] [id number] [place] [address] Apr, [facility] [address] [id number] [place] [address] Mar, [facility] [address] [id number] [place] [address] Mar, [facility] [address] [id number] [place] [address] Mar, [facility] [address] [id number] [place] [address] Mar, [facility] [address] [id number] [place] [address] Mar, [facility] [address] [id number] [place] [address] 14 Feb, 2012 [facility] [address] [id number] [place] [address] 14 Feb, 2012 [facility] [address] [id number] [place] [address] Jan, [facility] [address] [id number] [place] [address] 13 Jan, 2012 [facility] [address] [id number] [place] [address] 13 Jan, 2012 [facility] [address] [id number] [place] [address] 13 Jan, 2012 [facility] [address] [id number] [place] [address] 07 Jan, 2012 [facility] [address] [id number] [place] [address] 07 Jan, 2012 [facility] [address] [id number] [place] [address] Jan, [facility] [address] [id number] [place] [address] Dec, [facility] [address] [id number] [place] [address] Dec, [facility] [address] [id number] [place] [address] Dec, [facility] [address] [id number] [place] [address] Dec, [facility] [address] [id number] [place] [address] Dec, [facility] [address] [id number] [place] [address] Dec, [facility] [address] [id number] [place] [address] Dec, [facility] [address] [id number] [place] [address] Dec, [facility] [address] [id number] [place] [address] Dec, [facility] [address] [id number] [place] [address] Dec, [facility] [address] [id number] [place] [address] Oct, [facility] [address] [id number] [place] [address] Oct, [facility] [address] [id number] [place] [address] Aug, [facility] [address] [id number] [place] [address] Aug, [facility] [address] [id number] [place] [address] July, [facility] [address] [id number] [place] [address] Jun, [facility] [address] [id number] [place] [address] Jun, [facility] [address] [id number] [place] [address] May, [facility] [address] [id number] [place] [address] Apr, [facility] [address] [id number] [place] [address] Apr, [facility] [id number] [place] [address] Mar, [facility] [address] [id number] [place] [address] Mar, [facility] [id number] [place] [address] Feb, [facility] [id number] [place] [address] 15 Feb, 2011 [facility] [id number] [place] [address] Feb, [facility] [address] [id number] [place] [address] Feb, [facility] [id number] [place] [address] Jan, [facility] [address] [id number] [place] [address] 17 Dec, 2010 [facility] [id number] [place] [address] 08 Feb, 2010 [facility] [address] [id number] [place] [address] Feb, [facility] [id number] [place] [address] Feb, [facility] [address] [id number] [place] [address] Feb, [facility] [address] [id number] [place] [address] 15 Dec, 2009 [facility] [address] [id number] [place] [address] Dec, [facility] [address] [id number] [place] [address] Oct, [facility] [address] [id number] [place] [address] Jun, [facility] [address] [id number] [place] [address] Feb, [facility] [address] [id number] [place] [address] Feb, [facility] [address] [id number] [place] [address] Feb, [facility] [address] [id number] [place] [address] Dec, IMMUNIZATIONS No Known Immunizations SOCIAL HISTORY [...] 1985, 1987 Surgical History cholecystectomy Surgical History Corydon Filter 06/2009 Surgical History Left leg exploratory surgery r/t clot Surgical History left shoulder surgery 09/14/17 Surgical History lap band removed 12/2017 Surgical History gastic sleeve 01/2018 Surgical History Back surgery 2019 Surgical History Partial Thyroidectomy - left side 2019 Hospitalization History Ruptured Ovarian Cyst with abd bleed ing 11/2009 Hospitalization History Broken Back 06/2018
--- OUTSIDE RECORDS SUMMARY | 2019-10-19 12:53 | XMS REPORT ---
Author Author KIANA Mary Jane RAMIREZ Organization [facility] Address [address] [place] [address] Care Team Providers Care Rental Coordinator Name Role Phone ASHLEY BRUNO Unavailable PROBLEMS Type Condition ICD9-CM Code [id number] Code Onset Dates Condition S tatus SNOMED Code Problem Thyroid follicular adenoma D34 Act phylicia 121266821 Problem History of DVT (deep vein thrombosis) Z86.718 Active 984165049 Problem Factor V Leiden D68.51 Active 3070 08667 Problem emt intermediate (current) use of anticoagulants Z79.01 Active 371520001 Problem Hypertriglyceridemia E78.1 Active 571996523 Problem 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 Active 645487509 Problem Pelvic pain R10.2 Active 34428330 Problem Peripheral edema R60.9 Active 271 400834 Problem Moderate episode of recurrent major depressive disorder F33.1 Active 769586275 Problem Presence of IVC filter Z95.828 Active 532277268 Problem Vitamin D deficiency E55.9 Active 43564623 Problem Generalized anxiety disorder F41.1 A ctive 685962024 Problem Excessive daytime sleepiness G47.19 A ctive 566092755832 Problem Gastroesophageal reflux disease, esophagitis pre sence not specified K21.9 Active 640895424 Problem Thyroid nodule E04.1 Active 30363 5005 Problem Morbid obesity E66.01 Active 92791 6002 ALLERGIES No Information ENCOUNTERS Encounter Location Date Diagnosis [facility] [id number] [place] [address] 12 Apr, 2019 Back pain with history of spinal surgery M54.9 [facility] [id number] [place] [address] 11 Apr, 2019 [facility] [id number] [place] [address] 10 Apr, 2019 Gastroenteritis K52.9 ; Back pain with h istory of spinal surgery M54.9 and Dermatofibroma of lower leg, unspecified laterality D23.70 [place] [address] [address] Mar, [place] [address] [address] Jan, [place] [address] [address] Jan, [place] [address] [address] Dec, Encounter for weight management Z76.89 [place] [address] [address] Dec, Encounter for weight management Z76.89 a nd Screening mammogram, encounter for Z12.31 [place] [address] [address] Nov, Encounter for weight management Z76.89 [place] [address] [address] Nov, Thyroid nodule E04.1 [place] [address] [address] Nov, Thyroid nodule E04.1 [place] [address] [address] Nov, Thyroid nodule E04.1 [place] [address] [address] Oct, Syncope, unspecified syncope type R55 an d Encounter for weight management Z76.89 [place] [address] [address] Oct, Morbid obesity E66.01 [place] [address] [address] Oct, Hypertriglyceridemia E78.1 [place] [address] [address] Oct, [facility] [address] [address] Oct, Hypertriglyceridemia E78.1 [facility] [address] [address] Sep, Hypertriglyceridemia E78.1 and Vitamin D deficiency E55.9 [facility] [address] [address] Sep, [facility] [address] [address] Sep, Morbid obesity E66.01 ; Moderate episode of recurrent major depressive disorder F33.1 ; Hypertriglyceridemia E78.1 and Vitamin D deficiency E55.9 [facility] [address] [address] Aug, [facility] [address] [address] July, [facility] [address] [address] July, [facility] [address] [address] Jun, [facility] [address] [address] Jun, [facility] [address] [address] Jun, Closed compression fracture of L3 lumbar vertebra with routine healing, subsequent encounter S32.030D and Drug-induced constipation K59.03 [facility] [address] [address] Jun, [facility] [address] [address] Jun, [facility] [address] [address] Apr, [facility] [address] [address] Apr, Morbid obesity E66.01 [facility] [address] [address] 12 Apr, 2018 Morbid obesity E66.01 ; Hypertriglycerid emia E78.1 ; Gastroesophageal reflux disease, esophagitis presence not specified K21.9 and Joint pain M25.50 [facility] [address] [address] Feb, [facility] [address] [address] Feb, [facility] [address] [facility] [id number] [address] [place] [address] Jan, Acute bacterial conjunctivit is H10.30 [place] [address] [address] 08 Dec, 2017 [place] [address] [address] 04 Dec, 2017 [facility] [address] [address] 17 Nov, 2017 [place] [address] [address] 07 Nov, 2017 Obstructive sleep apnea G47.33 ; Morbid obesity E66.01 and Gastroesophageal reflux disease, esophagitis presence not specified K21.9 [facility] [address] [facility] [place] [id number] 06 Nov, 2017 Encounter for examination of eyes and vi ray without abnormal findings Z01.00 [place] [address] [address] 31 Oct, 2017 Thyroid nodule E04.1 and Screening for b reast cancer Z12.[address] [address] 23 Oct, 2017 History of DVT (deep vein thrombosis) Z8 6.718 ; Thyroid nodule E04.1 and Gastroesophageal reflux disease, esophagitis presence not specified K21.9 [place] [address] [address] Oct, [place] [address] [address] Sep, [place] [address] [address] Aug, [place] [address] [address] Aug, [place] [address] [address] Aug, Acute pain of left shoulder M25.512 and Thyroid nodule E04.1 [place] [address] [address] July, Superior glenoid labrum lesion of left mehdi roy, subsequent encounter S43.432D [place] [address] [address] Jun, History of DVT (deep vein thrombosis) Z8 6.718 [place] [address] [address] Jun, History of DVT (deep vein thrombosis) Z8 6.718 [place] [address] [address] Jun, Impingement syndrome, shoulder, left M75 .42 [place] [address] [address] May, Subacromial bursitis of left shoulder saurabh int M75.52 [place] [address] [address] May, [address] [address] May, Hypertriglyceridemia E78.1 ; emt intermediate ( current) use of anticoagulants Z79.01 and Excessive daytime sleepiness G47.19 [place] [address] [address] May, History of DVT (deep vein thrombosis) Z8 6.718 ; Generalized anxiety disorder F41.1 ; Hypertriglyceridemia E78.1 ; emt intermediate (current) use of anticoagulants Z79.01 ; Subacromial bursitis of left shoulder joint M75.52 and Excessive daytime sleepiness G47.19 [place] [address] [address] May, [place] [address] [address] May, emt intermediate (current) use of anticoagulant s Z79.01 [place] [address] [address] Apr, penitentiary (current) use of anticoagulant s Z79.01 [place] [address] [address] Apr, emt intermediate (current) use of anticoagulant s Z79.01 [place] [address] [address] Apr, penitentiary (current) use of anticoagulant s Z79.01 [place] [address] [address] Apr, [place] [address] [address] Apr, penitentiary (current) use of anticoagulant s Z79.01 [place] [address] [address] 13 Apr, 2017 penitentiary (current) use of anticoagulant s Z79.01 [place] [address] [address] Apr, penitentiary (current) use of anticoagulant s Z79.01 [place] [address] [address] Apr, emt intermediate (current) use of anticoagulant s Z79.01 [place] [address] [address] 07 Apr, 2017 emt intermediate (current) use of anticoagulant s Z79.01 [facility] [address] [address] Apr, penitentiary (current) use of anticoagulant s Z79.01 [facility] [address] [address] Mar, emt intermediate (current) use of anticoagulant s Z79.01 [facility] [address] [address] Mar, [facility] [address] [address] Mar, penitentiary (current) use of anticoagulant s Z79.01 [facility] [address] [id number] Jan, Dental examination Z01.20 [facility] [address] [id number] Jan, [facility] [address] [address] Jan, penitentiary (current) use of anticoagulant s Z79.01 [place] [address] [address] Jan, History of DVT (deep vein thrombosis) Z8 6.718 [place] [address] [address] Jan, Generalized anxiety disorder F41.1 and P eripheral edema R60.9 [facility] [address] [address] Nov, History of DVT (deep vein thrombosis) Z8 6.718 [place] [address] [address] Nov, emt intermediate (current) use of anticoagulant s Z79.01 [facility] [address] [facility] [id number] [address] [place] [address] 09 Nov, 2016 Acute non-recurrent maxillar y sinusitis J01.00 [place] [address] [address] Oct, penitentiary (current) use of anticoagulant s Z79.01 [place] [address] [address] Oct, Personal history of venous thrombosis an d embolism Z86.718 [place] [address] [address] Sep, [place] [address] [address] Sep, Personal history of venous thrombosis an d embolism Z86.718 [place] [address] [address] Sep, emt intermediate (current) use of anticoagulant s Z79.01 [place] [address] [address] Sep, penitentiary (current) use of anticoagulant s Z79.01 [place] [address] [address] Sep, Generalized anxiety disorder F41.1 and H istory of DVT (deep vein thrombosis) Z86.718 [place] [address] [address] Aug, History of DVT (deep vein thrombosis) Z8 6.718 ; Generalized anxiety disorder F41.1 ; penitentiary (current) use of anticoagulants Z79.01 ; Pelvic pain R10.2 ; Hypertriglyceridemia E78.1 ; Excessive daytime sleepiness G47.19 ; Colon cancer screening Z12.11 ; Screening for breast cancer Z12.39 ; Peripheral edema R60.9 and Gastroesophageal reflux disease, esophagitis presence not specified K21.9 [place] [address] [address] Aug, [place] [address] [address] July, [place] [address] [address] July, History of DVT (deep vein thrombosis) Z8 6.718 [place] [address] [address] Jun, Generalized anxiety disorder F41.1 [place] [address] [address] Jun, History of DVT (deep vein thrombosis) Z8 6.718 [place] [address] [address] Jun, History of DVT (deep vein thrombosis) Z8 6.718 [place] [address] [address] Jun, History of DVT (deep vein thrombosis) Z8 6.718 [place] [address] [address] Jun, History of DVT (deep vein thrombosis) Z8 6.718 [place] [address] [address] May, History of DVT (deep vein thrombosis) Z8 6.718 [place] [address] [address] May, penitentiary (current) use of anticoagulant s Z79.01 [place] [address] [address] May, emt intermediate (current) use of anticoagulant s Z79.01 [place] [address] [address] May, History of DVT (deep vein thrombosis) Z8 6.718 [facility] [address] [facility] [id number] [address] [place] [address] Apr, Bacterial conjunctivitis of left eye H10.9 and H/O motion sickness Z87.898 [place] [address] [address] Apr, History of DVT (deep vein thrombosis) Z8 6.718 [place] [address] [address] 23 Apr, 2016 History of DVT (deep vein thrombosis) Z8 6.718 [facility] [address] [address] 15 Apr, 2016 History of DVT (deep vein thrombosis) Z8 6.718 [place] [address] [address] 14 Apr, 2016 emt intermediate (current) use of anticoagulant s Z79.01 [place] [address] [address] Mar, [place] [address] [address] Mar, penitentiary (current) use of anticoagulant s Z79.01 [place] [address] [address] Mar, Hypertriglyceridemia E78.1 and emt intermediate (current) use of anticoagulants Z79.01 [place] [address] [address] Feb, emt intermediate (current) use of anticoagulant s Z79.01 [place] [address] [address] Feb, penitentiary (current) use of anticoagulant s Z79.01 [place] [address] [address] Feb, penitentiary (current) use of anticoagulant s Z79.01 [place] [address] [address] Dec, [place] [address] [address] Nov, [place] [address] [address] Nov, History of DVT (deep vein thrombosis) Z8 6.718 ; Tremulousness R25.1 ; Generalized anxiety disorder F41.1 ; Peripheral edema R60.9 and Hypertriglyceridemia E78.1 [place] [address] [address] Oct, History of DVT (deep vein thrombosis) Z8 6.718 [place] [address] [address] Oct, [place] [address] [address] Sep, History of DVT (deep vein thrombosis) Z8 6.718 [place] [address] [address] Sep, emt intermediate (current) use of anticoagulant s Z79.01 [place] [address] [address] July, [place] [address] [address] July, emt intermediate (current) use of anticoagulant s Z79.01 [place] [address] [address] July, penitentiary (current) use of anticoagulant s Z79.01 [place] [address] [address] Jun, penitentiary (current) use of anticoagulant s Z79.01 [facility] [place] [id number] [address] [place] [address] Jun, Coccyx pain M53.3 ; Encounte r for therapeutic drug level monitoring Z51.81 and emt intermediate current use 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.01 [place] [address] [address] May, Abnormal mammogram R92.8 [facility] [place] [address] [place] [id number] [address] [place] [address] May, [facility] [address] [address] May, Acute vaginitis N76.0 and En counter for other screening for malignant neoplasm of breast Z12.39 [place] [address] [address] Apr, [place] [address] [address] Apr, [place] [address] [address] Apr, Peripheral edema R60.9 [place] [address] [address] Apr, emt intermediate (current) use of anticoagulant s Z79.01 [place] [address] [address] Apr, Peripheral edema R60.9 and emt intermediate (cu rrent) use of anticoagulants Z79.01 [place] [address] [address] Apr, emt intermediate (current) use of anticoagulant s Z79.01 [place] [address] [address] Apr, [place] [address] [address] Apr, penitentiary (current) use of anticoagulant s Z79.01 [place] [address] [address] Apr, Peripheral edema R60.9 [place] [address] [address] Mar, emt intermediate (current) use of anticoagulant s Z79.01 [place] [address] [address] Mar, penitentiary (current) use of anticoagulant s Z79.01 and Hypertriglyceridemia E78.1 [place] [address] [address] Mar, penitentiary (current) use of anticoagulant s Z79.01 [place] [address] [address] Mar, emt intermediate (current) use of anticoagulant s Z79.01 [place] [address] [address] Mar, [place] [address] [address] Mar, penitentiary (current) use of anticoagulant s Z79.01 ; Hypertriglyceridemia E78.1 ; Personal history of venous thrombosis and embolism Z86.718 and Lump R22.9 [place] [address] [address] Mar, Personal history of venous thrombosis an d embolism Z86.718 [place] [address] [address] Mar, Personal history of venous thrombosis an d embolism Z86.718 [place] [address] [address] Mar, [place] [address] [address] Dec, Personal history of venous thrombosis an d embolism Z86.718 [place] [address] [address] Dec, Personal history of venous thrombosis an d embolism V12.51 [place] [address] [address] Nov, Personal history of venous thrombosis an d embolism V12.51 [place] [address] [address] 25 Nov, 2014 Personal history of venous thrombosis an d embolism V12.51 [place] [address] [address] 17 Nov, 2014 Personal history of venous thrombosis an d embolism V12.51 [place] [address] [address] Nov, Personal history of venous thrombosis an d embolism V12.51 [facility] [address] [address] Nov, [facility] [address] [address] Oct, Dysuria 788.1 [facility] [address] [address] Oct, Personal history of venous thrombosis an d embolism V12.51 [place] [address] [address] Oct, [place] [address] [address] Oct, Personal history of venous thrombosis an d embolism V12.51 [place] [address] [address] Sep, Personal history of venous thrombosis an d embolism V12.51 [place] [address] [address] Sep, Personal history of venous thrombosis an d embolism V12.51 [place] [address] [address] Aug, Personal history of venous thrombosis an d embolism V12.51 [place] [address] [address] Aug, Personal history of venous thrombosis an d embolism V12.51 [place] [address] [address] Aug, Personal history of venous thrombosis an d embolism V12.51 [place] [address] [address] July, Generalized anxiety disorder 300.02 ; Ab dominal pain, left lower quadrant 789.04 and Personal history of venous thrombosis and embolism V12.51 [place] [address] [place] [address] 14 Jun, 2014 [facility] [address] [facility] [id number] [facility] [place] [address] Jun, [facility] [id number] [place] [address] May, [facility] [id number] [place] [address] May, [facility] [id number] [place] [address] May, [facility] [id number] [place] [address] May, [facility] [id number] [place] [address] May, [facility] [id number] [place] [address] May, [facility] [id number] [place] [address] May, [facility] [id number] [place] [address] May, [facility] [id number] [place] [address] Apr, [facility] [id number] [place] [address] Apr, [facility] [id number] [place] [address] Apr, [facility] [id number] [place] [address] Apr, [facility] [id number] [place] [address] Apr, [facility] [id number] [place] [address] Mar, [facility] [id number] [place] [address] Mar, [facility] [id number] [place] [address] Mar, [facility] [id number] [place] [address] Mar, [facility] [id number] [place] [address] Mar, [facility] [id number] [place] [address] Mar, [facility] [id number] [place] [address] Feb, [facility] [id number] [place] [address] Feb, [facility] [id number] [place] [address] Feb, [facility] [id number] [place] [address] Feb, [facility] [id number] [place] [address] Feb, [facility] [id number] [place] [address] Feb, [facility] [id number] [place] [address] Feb, [facility] [id number] [place] [address] Feb, [facility] [id number] [place] [address] Feb, [facility] [id number] [place] [address] Feb, [facility] [id number] [place] [address] Jan, [facility] [id number] [place] [address] Jan, [facility] [id number] [place] [address] Jan, [facility] [address] [facility] [id number] [place] [address] Jan, [facility] [id number] [place] [address] Jan, [facility] [id number] [place] [address] Jan, [facility] [id number] [place] [address] Jan, [facility] [id number] [place] [address] Jan, [facility] [id number] [place] [address] Jan, [facility] [id number] [place] [address] Jan, [facility] [id number] [place] [address] Dec, [facility] [id number] [place] [address] Dec, [facility] [id number] [place] [address] Dec, [facility] [id number] [place] [address] Dec, [facility] [id number] [place] [address] Dec, [facility] [id number] [place] [address] Dec, [facility] [id number] [place] [address] Dec, [facility] [id number] [place] [address] Dec, [facility] [id number] [place] [address] Dec, [facility] [id number] [place] [address] 10 Dec, 2013 [facility] [address] [facility] [id number] [place] [address] Dec, 2013 [facility] [address] [facility] [id number] [place] [address] Dec, 2013 [facility] [id number] [place] [address] Dec, [facility] [id number] [place] [address] Dec, [facility] [address] [facility] [id number] [place] [address] Dec, [facility] [id number] [place] [address] 30 Nov, 2013 [facility] [id number] [place] [address] 30 Nov, 2013 [facility] [id number] [place] [address] 26 Sep, 2013 [facility] [id number] [place] [address] 26 Sep, 2013 [facility] [id number] [place] [address] 24 Nov, 2013 [facility] [id number] [place] [address] 24 Sep, 2013 [facility] [id number] [place] [address] 23 Sep, 2013 [facility] [address] [facility] [id number] [place] [address] 23 Sep, 2013 [facility] [address] [id number] [place] [address] 18 Sep, 2013 [facility] [place] [facility] [id number] [place] [address] 18 Sep, 2013 [facility] [place] [facility] [id number] [place] [address] 17 Sep, 2013 [facility] [place] [facility] [address] [facility] [id number] [place] [address] 17 Nov, 2013 [facility] [place] [facility] [address] [facility] [id number] [place] [address] 11 Nov, 2013 [facility] [place] [facility] [address] [facility] [id number] [place] [address] 11 Nov, 2013 [facility] [place] [facility] [address] [facility] [id number] [facility] [place] [address] 10 Nov, 2013 [facility] [place] [facility] [address] [facility] [id number] [place] [address] 10 Nov, 2013 [facility] [place] [facility] [id number] [place] [address] 08 Nov, 2013 [facility] [place] [facility] [id number] [place] [address] 08 Nov, 2013 [facility] [place] [facility] [id number] [place] [address] Sep, 2013 [facility] [place] [facility] [id number] [place] [address] Sep, 2013 [facility] [place] [facility] [id number] [place] [address] Sep, 2013 [facility] [place] [facility] [id number] [place] [address] Sep, 2013 [facility] [place] [facility] [id number] [place] [address] Sep, 2013 [facility] [place] [facility] [id number] [place] [address] Sep, 2013 [facility] [place] [facility] [address] [facility] [id number] [place] [address] Aug, [facility] [place] [facility] [id number] [place] [address] Aug, [facility] [place] [facility] [id number] [place] [address] Aug, [facility] [place] [facility] [id number] [place] [address] Aug, [facility] [place] [facility] [address] [facility] [id number] [facility] [address] 24 Aug, 2013 [facility] [place] [facility] [address] [facility] [id number] [facility] [address] Aug, [facility] [place] [facility] [id number] [facility] [address] Aug, [facility] [place] [facility] [id number] [facility] [address] Aug, [facility] [place] [facility] [address] [facility] [id number] [facility] [address] Aug, [facility] [place] [facility] [id number] [place] [address] Aug, [facility] [place] [facility] [id number] [place] [address] Aug, [facility] [place] [facility] [id number] [place] [address] July, [facility] [place] [facility] [id number] [place] [address] July, [facility] [place] [facility] [id number] [place] [address] Jun, [facility] [place] [facility] [id number] [place] [address] Jun, [facility] [place] [facility] [id number] [place] [address] Jun, [facility] [place] [facility] [id number] [place] [address] Jun, [facility] [place] [facility] [id number] [place] [address] Jun, [facility] [place] [facility] [id number] [place] [address] Jun, [facility] [place] [facility] [id number] [place] [address] 15 Jun, 2013 [facility] [place] [facility] [id number] [facility] [place] [address] 15 Jun, 2013 [facility] [place] [facility] [address] [facility] [id number] [place] [address] 11 Jun, 2013 [facility] [place] [facility] [address] [facility] [id number] [place] [address] 11 Jun, 2013 [facility] [place] [facility] [id number] [place] [address] 10 Jun, 2013 [facility] [place] [facility] [address] [facility] [id number] [place] [address] 10 Jun, 2013 [facility] [place] [facility] [address] [facility] [id number] [place] [address] 25 May, 2013 [facility] [place] [facility] [id number] [place] [address] May, [facility] [place] [facility] [id number] [place] [address] May, [facility] [place] [facility] [id number] [place] [address] May, [facility] [place] [facility] [id number] [place] [address] May, [facility] [place] [facility] [id number] [place] [address] May, [facility] [place] [facility] [id number] [place] [address] May, [facility] [place] [facility] [id number] [place] [address] May, [facility] [place] [facility] [address] [facility] [id number] [place] [address] May, [facility] [place] [facility] [id number] [place] [address] May, [facility] [place] [facility] [id number] [place] [address] May, [facility] [place] [facility] [id number] [place] [address] May, [facility] [place] [facility] [id number] [place] [address] Apr, [facility] [place] [facility] [id number] [place] [address] Apr, [facility] [place] [facility] [id number] [place] [address] Apr, [facility] [place] [facility] [id number] [place] [address] Apr, [facility] [place] [facility] [id number] [place] [address] Apr, [facility] [place] [facility] [id number] [place] [address] Apr, [facility] [place] [facility] [id number] [place] [address] Apr, [facility] [place] [facility] [id number] [place] [address] Apr, [facility] [place] [facility] [id number] [place] [address] Apr, [facility] [place] [facility] [id number] [place] [address] Apr, [facility] [place] [facility] [id number] [place] [address] Apr, [facility] [place] [facility] [id number] [place] [address] Apr, [facility] [place] [facility] [id number] [place] [address] Apr, [facility] [place] [facility] [id number] [place] [address] Apr, [facility] [place] [facility] [id number] [place] [address] Apr, [facility] [place] [facility] [id number] [place] [address] Apr, [facility] [place] [facility] [id number] [place] [address] Apr, [facility] [place] [facility] [id number] [place] [address] Jan, [facility] [place] [facility] [id number] [place] [address] Jan, [facility] [place] [facility] [id number] [place] [address] 08 Jan, 2013 [facility] [place] [facility] [id number] [place] [address] Jan, [facility] [place] [facility] [id number] [place] [address] Jan, [facility] [place] [facility] [id number] [place] [address] Jan, [facility] [place] [facility] [id number] [place] [address] Jan, [facility] [place] [facility] [id number] [place] [address] Dec, [facility] [place] [facility] [id number] [place] [address] Dec, [facility] [place] [facility] [id number] [place] [address] 08 Dec, 2012 [facility] [place] [facility] [id number] [place] [address] 10 Nov, 2012 [facility] [place] [facility] [id number] [place] [address] 10 Nov, 2012 [facility] [place] [facility] [id number] [place] [address] 05 Nov, 2012 [facility] [place] [facility] [id number] [place] [address] 04 Nov, 2012 [facility] [place] [facility] [id number] [place] [address] Oct, [facility] [place] [facility] [id number] [place] [address] Oct, [facility] [place] [facility] [address] [id number] [facility] [address] Oct, [facility] [place] [facility] [address] [facility] [id number] [facility] [place] [address] Oct, [facility] [place] [facility] [id number] [facility] [place] [address] Oct, [facility] [place] [facility] [address] [id number] [facility] [address] Sep, [facility] [place] [facility] [address] [facility] [id number] [place] [address] Sep, [facility] [place] [facility] [id number] [place] [address] Sep, [facility] [place] [facility] [id number] [place] [address] Sep, [facility] [place] [facility] [id number] [facility] [address] Sep, [facility] [place] [facility] [id number] [facility] [address] Sep, [facility] [place] [facility] [id number] [facility] [address] Sep, [facility] [place] [facility] [id number] [place] [address] Aug, [facility] [place] [facility] [id number] [place] [address] Aug, [facility] [place] [facility] [id number] [facility] [address] July, [facility] [place] [facility] [address] [id number] [place] [address] Jun, [facility] [place] [facility] [id number] [place] [address] Jun, [facility] [place] [facility] [id number] [place] [address] Jun, [facility] [place] [facility] [id number] [place] [address] Apr, [facility] [place] [facility] [id number] [place] [address] Apr, [facility] [place] [facility] [id number] [place] [address] Apr, [facility] [place] [facility] [id number] [place] [address] Mar, [facility] [place] [facility] [id number] [place] [address] Mar, [facility] [place] [facility] [id number] [place] [address] Mar, [facility] [place] [facility] [id number] [place] [address] Mar, [facility] [place] [facility] [id number] [place] [address] Mar, [facility] [place] [facility] [id number] [place] [address] 14 Feb, 2012 [facility] [place] [facility] [id number] [place] [address] 14 Feb, 2012 [facility] [place] [facility] [id number] [place] [address] Jan, [facility] [place] [facility] [id number] [place] [address] Jan, [facility] [place] [facility] [id number] [place] [address] Jan, [facility] [place] [facility] [id number] [place] [address] 13 Jan, 2012 [facility] [place] [facility] [id number] [place] [address] Jan, [facility] [place] [facility] [id number] [place] [address] 07 Jan, 2012 [facility] [place] [facility] [id number] [place] [address] Jan, [facility] [place] [facility] [id number] [place] [address] Dec, [facility] [place] [facility] [id number] [place] [address] Dec, [facility] [place] [facility] [id number] [place] [address] Dec, [facility] [place] [facility] [id number] [place] [address] Dec, [facility] [place] [facility] [id number] [place] [address] Dec, [facility] [place] [facility] [id number] [place] [address] Dec, [facility] [place] [facility] [id number] [place] [address] Dec, [facility] [place] [facility] [id number] [place] [address] Dec, [facility] [place] [facility] [id number] [place] [address] Dec, [facility] [place] [facility] [id number] [place] [address] Dec, [facility] [place] [facility] [id number] [place] [address] Oct, [facility] [place] [facility] [id number] [place] [address] Oct, [facility] [place] [facility] [id number] [place] [address] Aug, [facility] [place] [facility] [id number] [place] [address] Aug, [facility] [place] [facility] [id number] [place] [address] July, [facility] [place] [facility] [id number] [place] [address] Jun, [facility] [place] [facility] [id number] [place] [address] Jun, [facility] [place] [facility] [id number] [place] [address] May, [facility] [place] [facility] [id number] [place] [address] Apr, [facility] [place] [facility] [id number] [place] [address] Apr, [facility] [place] [facility] [id number] [place] [address] Mar, [facility] [place] [facility] [id number] [place] [address] Mar, [facility] [place] [facility] [id number] [place] [address] Feb, [facility] [place] [facility] [id number] [place] [address] 15 Feb, 2011 [facility] [place] [facility] [id number] [place] [address] Feb, [facility] [place] [facility] [id number] [place] [address] Feb, [facility] [place] [facility] [id number] [place] [address] Jan, [facility] [place] [facility] [id number] [place] [address] 17 Dec, 2010 [facility] [place] [facility] [id number] [place] [address] 08 Feb, 2010 [facility] [place] [facility] [id number] [place] [address] Feb, [facility] [place] [facility] [id number] [place] [address] Feb, [facility] [place] [facility] [id number] [place] [address] Feb, [facility] [place] [facility] [id number] [place] [address] 15 Dec, 2009 [facility] [place] [facility] [id number] [place] [address] 15 Dec, 2009 [facility] [id number] [place] [address] Oct, [facility] [id number] [place] [address] Jun, [facility] [id number] [place] [address] Feb, [facility] [id number] [place] [address] Feb, [facility] [id number] [place] [address] Feb, [facility] [id number] [place] [address] Dec, IMMUNIZATIONS No Known Immunizations SOCIAL HISTORY [...] 1985, 1987 Surgical History cholecystectomy Surgical History [place] Filter 06/2009 Surgical History Left leg exploratory surgery r/t clot Surgical History left shoulder surgery 09/14/17 Surgical History lap band removed 12/2017 Surgical History gastic sleeve 01/2018 Surgical History Back surgery 2019 Surgical History Partial Thyroidectomy - left side 2019 Hospitalization History Ruptured Ovarian Cyst with abd bleed ing 11/2009 Hospitalization History Broken Back 06/2018
--- OUTSIDE RECORDS SUMMARY | 2019-10-19 12:53 | XMS REPORT ---
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 Name Role Phone ASHLEY BRUNO Unavailable PROBLEMS Type Condition ICD9-CM Code LRX05-XZ Code Onset Dates Condition S tatus SNOMED Code Problem Factor V Leiden D68.51 Active 3070 79374 Problem 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 Active 670056148 Problem Thyroid follicular adenoma D34 Act phylicia 217311262 Problem Hypertriglyceridemia E78.1 Active 677856304 Problem Presence of IVC filter Z95.828 Active 006151253 Problem History of DVT (deep vein thrombosis) Z86.718 Active 906590193 Problem Pelvic pain R10.2 Active 41506024 Problem Peripheral edema R60.9 Active 271 470582 Problem Moderate episode of recurrent major depressive disorder F33.1 Active 637532116 Problem Generalized anxiety disorder F41.1 A ctive 850974162 Problem Vitamin D deficiency E55.9 Active 97242391 Problem longterm (current) use of anticoagulants Z79.01 Active 300326403 Problem Excessive daytime sleepiness G47.19 A ctive 330343393288 Problem Gastroesophageal reflux disease, esophagitis pre sence not specified K21.9 Active 943241340 Problem Thyroid nodule E04.1 Active 40314 5005 Problem Morbid obesity E66.01 Active 16086 6002 ALLERGIES No Information ENCOUNTERS Encounter Location Date Diagnosis [facility] [address] [id number] [place] [address] 12 Apr, 2019 Back pain with history of spinal surgery M54.9 [facility] [address] [facility] [place] [address] 11 Apr, 2019 [facility] [address] [facility] [place] [address] 10 Apr, 2019 Gastroenteritis K52.9 ; Back pain with h istory of spinal surgery M54.9 and Dermatofibroma of lower leg, unspecified laterality D23.70 [place] [address] [address] Mar, [place] [address] [address] Jan, [place] [address] [address] Jan, [place] [address] [address] Dec, Encounter for weight management Z76.89 [place] [address] [address] Dec, Encounter for weight management Z76.89 a nd Screening mammogram, encounter for Z12.31 [place] [address] [address] Nov, Encounter for weight management Z76.89 [place] [address] [address] Nov, Thyroid nodule E04.1 [place] [address] [address] Nov, Thyroid nodule E04.1 [place] [address] [address] Nov, Thyroid nodule E04.1 [place] [address] [address] Oct, Syncope, unspecified syncope type R55 an d Encounter for weight management Z76.89 [place] [address] [address] Oct, Morbid obesity E66.01 [place] [address] [address] Oct, Hypertriglyceridemia E78.1 [place] [address] [address] Oct, [facility] [address] [address] Oct, Hypertriglyceridemia E78.1 [facility] [address] [address] Sep, Hypertriglyceridemia E78.1 and Vitamin D deficiency E55.9 [facility] [address] [address] Sep, [facility] [address] [address] Sep, Morbid obesity E66.01 ; Moderate episode of recurrent major depressive disorder F33.1 ; Hypertriglyceridemia E78.1 and Vitamin D deficiency E55.9 [facility] [address] [address] Aug, [facility] [address] [address] July, [facility] [address] [address] July, [facility] [address] [address] Jun, [facility] [address] [address] Jun, [facility] [address] [address] Jun, Closed compression fracture of L3 lumbar vertebra with routine healing, subsequent encounter S32.030D and Drug-induced constipation K59.03 [facility] [address] [address] Jun, [facility] [address] [address] Jun, [facility] [address] [address] Apr, [facility] [address] [address] Apr, Morbid obesity E66.01 [facility] [address] [address] 12 Apr, 2018 Morbid obesity E66.01 ; Hypertriglycerid emia E78.1 ; Gastroesophageal reflux disease, esophagitis presence not specified K21.9 and Joint pain M25.50 [facility] [address] [address] Feb, [facility] [address] [address] Feb, [facility] [address] [facility] [id number] [address] [place] [address] Jan, Acute bacterial conjunctivit is H10.30 [place] [address] [address] 08 Dec, 2017 [place] [address] [address] 04 Dec, 2017 [facility] [address] [address] 17 Nov, 2017 [place] [address] [address] 07 Nov, 2017 Obstructive sleep apnea G47.33 ; Morbid obesity E66.01 and Gastroesophageal reflux disease, esophagitis presence not specified K21.9 [facility] [address] [facility] [place] [id number] 06 Nov, 2017 Encounter for examination of eyes and vi ray without abnormal findings Z01.00 [place] [address] [address] 31 Oct, 2017 Thyroid nodule E04.1 and Screening for b reast cancer Z12.[address] [address] 23 Oct, 2017 History of DVT (deep vein thrombosis) Z8 6.718 ; Thyroid nodule E04.1 and Gastroesophageal reflux disease, esophagitis presence not specified K21.9 [place] [address] [address] Oct, [place] [address] [address] Sep, [place] [address] [address] Aug, [place] [address] [address] Aug, [place] [address] [address] Aug, Acute pain of left shoulder M25.512 and Thyroid nodule E04.1 [place] [address] [address] July, Superior glenoid labrum lesion of left mehdi roy, subsequent encounter S43.432D [place] [address] [address] Jun, History of DVT (deep vein thrombosis) Z8 6.718 [place] [address] [address] Jun, History of DVT (deep vein thrombosis) Z8 6.718 [place] [address] [address] Jun, Impingement syndrome, shoulder, left M75 .42 [place] [address] [address] May, Subacromial bursitis of left shoulder saurabh int M75.52 [place] [address] [address] May, [address] [address] May, Hypertriglyceridemia E78.1 ; 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 and Excessive daytime sleepiness G47.19 [place] [address] [address] May, History of DVT (deep vein thrombosis) Z8 6.718 ; Generalized anxiety disorder F41.1 ; Hypertriglyceridemia E78.1 ; 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 ; Subacromial bursitis of left shoulder joint M75.52 and Excessive daytime sleepiness G47.19 [place] [address] [address] May, [place] [address] [address] May, 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 [place] [address] [address] Apr, longterm (current) use of anticoagulant s Z79.01 [place] [address] [address] Apr, 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 [place] [address] [address] Apr, longterm (current) use of anticoagulant s Z79.01 [place] [address] [address] Apr, [place] [address] [address] Apr, longterm (current) use of anticoagulant s Z79.01 [place] [address] [address] 13 Apr, 2017 longterm (current) use of anticoagulant s Z79.01 [place] [address] [address] Apr, longterm (current) use of anticoagulant s Z79.01 [place] [address] [address] Apr, 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 [place] [address] [address] 07 Apr, 2017 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 [facility] [address] [address] Apr, longterm (current) use of anticoagulant s Z79.01 [facility] [address] [address] Mar, 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 [facility] [address] [address] Mar, [facility] [address] [address] Mar, longterm (current) use of anticoagulant s Z79.01 [facility] [address] [id number] Jan, Dental examination Z01.20 [facility] [address] [id number] Jan, [facility] [address] [address] Jan, longterm (current) use of anticoagulant s Z79.01 [place] [address] [address] Jan, History of DVT (deep vein thrombosis) Z8 6.718 [place] [address] [address] Jan, Generalized anxiety disorder F41.1 and P eripheral edema R60.9 [facility] [address] [address] Nov, History of DVT (deep vein thrombosis) Z8 6.718 [place] [address] [address] Nov, 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 [address] [facility] [id number] [address] [place] [address] 09 Nov, 2016 Acute non-recurrent maxillar y sinusitis J01.00 [place] [address] [address] Oct, longterm (current) use of anticoagulant s Z79.01 [place] [address] [address] Oct, Personal history of venous thrombosis an d embolism Z86.718 [place] [address] [address] Sep, [place] [address] [address] Sep, Personal history of venous thrombosis an d embolism Z86.718 [place] [address] [address] Sep, 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 [place] [address] [address] Sep, longterm (current) use of anticoagulant s Z79.01 [place] [address] [address] Sep, Generalized anxiety disorder F41.1 and H istory of DVT (deep vein thrombosis) Z86.718 [place] [address] [address] Aug, History of DVT (deep vein thrombosis) Z8 6.718 ; Generalized anxiety disorder F41.1 ; longterm (current) use of anticoagulants Z79.01 ; Pelvic pain R10.2 ; Hypertriglyceridemia E78.1 ; Excessive daytime sleepiness G47.19 ; Colon cancer screening Z12.11 ; Screening for breast cancer Z12.39 ; Peripheral edema R60.9 and Gastroesophageal reflux disease, esophagitis presence not specified K21.9 [place] [address] [address] Aug, [place] [address] [address] July, [place] [address] [address] July, History of DVT (deep vein thrombosis) Z8 6.718 [place] [address] [address] Jun, Generalized anxiety disorder F41.1 [place] [address] [address] Jun, History of DVT (deep vein thrombosis) Z8 6.718 [place] [address] [address] Jun, History of DVT (deep vein thrombosis) Z8 6.718 [place] [address] [address] Jun, History of DVT (deep vein thrombosis) Z8 6.718 [place] [address] [address] Jun, History of DVT (deep vein thrombosis) Z8 6.718 [place] [address] [address] May, History of DVT (deep vein thrombosis) Z8 6.718 [place] [address] [address] May, longterm (current) use of anticoagulant s Z79.01 [place] [address] [address] May, 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 [place] [address] [address] May, History of DVT (deep vein thrombosis) Z8 6.718 [facility] [address] [facility] [id number] [address] [place] [address] Apr, Bacterial conjunctivitis of left eye H10.9 and H/O motion sickness Z87.898 [place] [address] [address] Apr, History of DVT (deep vein thrombosis) Z8 6.718 [place] [id number] [address] 23 Apr, 2016 History of DVT (deep vein thrombosis) Z8 6.718 [facility] [address] [address] 15 Apr, 2016 History of DVT (deep vein thrombosis) Z8 6.718 [place] [address] [address] 14 Apr, 2016 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 [place] [address] [address] Mar, [place] [address] [address] Mar, longterm (current) use of anticoagulant s Z79.01 [place] [address] [address] Mar, Hypertriglyceridemia E78.1 and 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 [place] [address] [address] Feb, 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 [place] [address] [address] Feb, longterm (current) use of anticoagulant s Z79.01 [place] [address] [address] Feb, longterm (current) use of anticoagulant s Z79.01 [place] [address] [address] Dec, [place] [address] [address] Nov, [place] [address] [address] Nov, History of DVT (deep vein thrombosis) Z8 6.718 ; Tremulousness R25.1 ; Generalized anxiety disorder F41.1 ; Peripheral edema R60.9 and Hypertriglyceridemia E78.1 [place] [address] [address] Oct, History of DVT (deep vein thrombosis) Z8 6.718 [place] [address] [address] Oct, [place] [address] [address] Sep, History of DVT (deep vein thrombosis) Z8 6.718 [place] [address] [address] Sep, 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 [place] [address] [address] July, [place] [address] [address] July, 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 [place] [address] [address] July, longterm (current) use of anticoagulant s Z79.01 [place] [address] [address] Jun, longterm (current) use of anticoagulant s Z79.01 [facility] [place] [id number] [place] [address] Jun, Coccyx pain M53.3 ; Encounte r for therapeutic drug level monitoring Z51.81 and 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 [place] [address] [address] May, Abnormal mammogram R92.8 [facility] [place] [address] [place] [id number] [address] [place] [address] May, [facility] [address] [address] May, Acute vaginitis N76.0 and En counter for other screening for malignant neoplasm of breast Z12.39 [place] [address] [address] Apr, [place] [address] [address] Apr, [place] [address] [address] Apr, Peripheral edema R60.9 [place] [address] [address] Apr, 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 [place] [address] [address] Apr, Peripheral edema R60.9 and buttermilk drier operator (cu rrent) use of anticoagulants Z79.01 [place] [address] [address] Apr, 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 [place] [address] [address] Apr, [place] [address] [address] Apr, longterm (current) use of anticoagulant s Z79.01 [place] [address] [address] Apr, Peripheral edema R60.9 [place] [address] [address] Mar, 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 [place] [address] [address] Mar, longterm (current) use of anticoagulant s Z79.01 and Hypertriglyceridemia E78.1 [place] [address] [address] Mar, longterm (current) use of anticoagulant s Z79.01 [place] [address] [address] Mar, 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 [place] [address] [address] Mar, [place] [address] [address] Mar, longterm (current) use of anticoagulant s Z79.01 ; Hypertriglyceridemia E78.1 ; Personal history of venous thrombosis and embolism Z86.718 and Lump R22.9 [place] [address] [address] Mar, Personal history of venous thrombosis an d embolism Z86.718 [place] [address] [address] Mar, Personal history of venous thrombosis an d embolism Z86.718 [place] [address] [address] Mar, [place] [address] [address] Dec, Personal history of venous thrombosis an d embolism Z86.718 [place] [address] [address] Dec, Personal history of venous thrombosis an d embolism V12.51 [place] [address] [address] Nov, Personal history of venous thrombosis an d embolism V12.51 [place] [address] [address] 25 Nov, 2014 Personal history of venous thrombosis an d embolism V12.51 [place] [address] [address] 17 Nov, 2014 Personal history of venous thrombosis an d embolism V12.51 [place] [address] [address] Nov, Personal history of venous thrombosis an d embolism V12.51 [facility] [address] [address] Nov, [facility] [address] [address] Oct, Dysuria 788.1 [facility] [address] [address] Oct, Personal history of venous thrombosis an d embolism V12.51 [place] [address] [address] Oct, [place] [address] [address] Oct, Personal history of venous thrombosis an d embolism V12.51 [place] [address] [address] Sep, Personal history of venous thrombosis an d embolism V12.51 [place] [address] [address] Sep, Personal history of venous thrombosis an d embolism V12.51 [place] [address] [address] Aug, Personal history of venous thrombosis an d embolism V12.51 [place] [address] [address] Aug, Personal history of venous thrombosis an d embolism V12.51 [place] [address] [address] Aug, Personal history of venous thrombosis an d embolism V12.51 [place] [address] [address] July, Generalized anxiety disorder 300.02 ; Ab dominal pain, left lower quadrant 789.04 and Personal history of venous thrombosis and embolism V12.51 [place] [address] [place] [address] 14 Jun, 2014 [facility] [address] [facility] [id number] [facility] [address] Jun, [facility] [address] [id number] [place] [address] May, [facility] [address] [id number] [place] [address] May, [facility] [address] [id number] [place] [address] May, [facility] [address] [id number] [place] [address] May, [facility] [address] [id number] [place] [address] May, [facility] [address] [id number] [place] [address] May, [facility] [address] [id number] [place] [address] May, [facility] [address] [id number] [place] [address] May, [facility] [address] [id number] [place] [address] Apr, [facility] [address] [id number] [place] [address] Apr, [facility] [address] [id number] [place] [address] Apr, [facility] [address] [id number] [place] [address] Apr, [facility] [address] [id number] [place] [address] Apr, [facility] [address] [id number] [place] [address] Mar, [facility] [address] [id number] [place] [address] Mar, [facility] [address] [id number] [place] [address] Mar, [facility] [address] [id number] [place] [address] Mar, [facility] [address] [id number] [place] [address] Mar, [facility] [address] [id number] [place] [address] Mar, [facility] [address] [id number] [place] [address] Feb, [facility] [address] [id number] [place] [address] Feb, [facility] [address] [id number] [place] [address] Feb, [facility] [address] [id number] [place] [address] Feb, [facility] [address] [id number] [place] [address] Feb, [facility] [address] [id number] [place] [address] Feb, [facility] [address] [id number] [place] [address] Feb, [facility] [address] [id number] [place] [address] Feb, [facility] [address] [id number] [place] [address] Feb, [facility] [address] [id number] [place] [address] Feb, [facility] [address] [id number] [place] [address] Jan, [facility] [address] [id number] [place] [address] Jan, [facility] [address] [id number] [place] [address] Jan, [facility] [address] [facility] [id number] [place] [address] Jan, [facility] [address] [id number] [place] [address] Jan, [facility] [address] [id number] [place] [address] Jan, [facility] [address] [id number] [place] [address] Jan, [facility] [address] [id number] [place] [address] Jan, [facility] [address] [id number] [place] [address] Jan, [facility] [address] [id number] [place] [address] Jan, [facility] [address] [id number] [place] [address] Dec, [facility] [address] [id number] [place] [address] Dec, [facility] [address] [id number] [place] [address] Dec, [facility] [address] [id number] [place] [address] Dec, [facility] [address] [id number] [place] [address] Dec, [facility] [address] [id number] [place] [address] Dec, [facility] [address] [id number] [place] [address] Dec, [facility] [address] [id number] [place] [address] Dec, [facility] [address] [id number] [place] [address] Dec, [facility] [address] [id number] [place] [address] 10 Dec, 2013 [facility] [address] [facility] [id number] [place] [address] Dec, 2013 [facility] [address] [facility] [id number] [place] [address] Dec, 2013 [facility] [place] [facility] [address] [id number] [place] [address] Dec, [facility] [place] [facility] [address] [id number] [place] [address] Dec, [facility] [place] [facility] [address] [facility] [id number] [place] [address] Dec, [facility] [place] [facility] [address] [id number] [place] [address] 30 Nov, 2013 [facility] [place] [facility] [address] [id number] [place] [address] 30 Nov, 2013 [facility] [place] [facility] [address] [id number] [place] [address] 26 Sep, 2013 [facility] [place] [facility] [address] [id number] [place] [address] 26 Sep, 2013 [facility] [place] [facility] [address] [id number] [place] [address] 24 Nov, 2013 [facility] [place] [facility] [address] [id number] [place] [address] 24 Sep, 2013 [facility] [place] [facility] [address] [id number] [place] [address] 23 Sep, 2013 [facility] [place] [facility] [address] [facility] [id number] [place] [address] 23 Sep, 2013 [facility] [place] [facility] [address] [id number] [place] [address] 18 Sep, 2013 [facility] [place] [facility] [address] [id number] [place] [address] 18 Sep, 2013 [facility] [place] [facility] [address] [id number] [place] [address] 17 Sep, 2013 [facility] [place] [facility] [address] [facility] [id number] [place] [address] 17 Nov, 2013 [facility] [place] [facility] [address] [facility] [id number] [place] [address] 11 Nov, 2013 [facility] [place] [facility] [address] [facility] [id number] [place] [address] 11 Nov, 2013 [facility] [place] [facility] [address] [facility] [id number] [facility] [address] 10 Nov, 2013 [facility] [place] [facility] [address] [facility] [id number] [place] [address] 10 Nov, 2013 [facility] [place] [facility] [address] [id number] [place] [address] 08 Nov, 2013 [facility] [place] [facility] [address] [id number] [place] [address] 08 Nov, 2013 [facility] [place] [facility] [address] [id number] [place] [address] Sep, 2013 [facility] [place] [facility] [address] [id number] [place] [address] Sep, 2013 [facility] [place] [facility] [address] [id number] [place] [address] Sep, 2013 [facility] [place] [facility] [address] [id number] [place] [address] Sep, 2013 [facility] [place] [facility] [address] [id number] [place] [address] Sep, 2013 [facility] [place] [facility] [address] [id number] [place] [address] Sep, 2013 [facility] [place] [facility] [address] [facility] [id number] [place] [address] Aug, [facility] [place] [facility] [address] [id number] [place] [address] Aug, [facility] [place] [facility] [address] [id number] [place] [address] Aug, [facility] [place] [facility] [address] [id number] [place] [address] Aug, [facility] [place] [facility] [address] [facility] [id number] [facility] [address] 24 Aug, 2013 [facility] [place] [facility] [address] [facility] [id number] [facility] [address] Aug, [facility] [place] [facility] [address] [id number] [facility] [address] Aug, [facility] [place] [facility] [address] [id number] [facility] [address] Aug, [facility] [place] [facility] [address] [facility] [id number] [facility] [address] Aug, [facility] [place] [facility] [address] [id number] [place] [address] Aug, [facility] [place] [facility] [address] [id number] [place] [address] Aug, [facility] [place] [facility] [address] [id number] [place] [address] July, [facility] [place] [facility] [address] [id number] [place] [address] July, [facility] [place] [facility] [address] [id number] [place] [address] Jun, [facility] [place] [facility] [address] [id number] [place] [address] Jun, [facility] [place] [facility] [address] [id number] [place] [address] Jun, [facility] [place] [facility] [address] [id number] [place] [address] Jun, [facility] [place] [facility] [address] [id number] [place] [address] Jun, [facility] [place] [facility] [address] [id number] [place] [address] Jun, [facility] [place] [facility] [address] [id number] [place] [address] 15 Jun, 2013 [facility] [place] [facility] [address] [id number] [facility] [address] 15 Jun, 2013 [facility] [place] [facility] [address] [facility] [id number] [place] [address] 11 Jun, 2013 [facility] [place] [facility] [address] [facility] [id number] [place] [address] 11 Jun, 2013 [facility] [place] [facility] [address] [id number] [place] [address] 10 Jun, 2013 [facility] [place] [facility] [address] [facility] [id number] [place] [address] 10 Jun, 2013 [facility] [place] [facility] [address] [facility] [id number] [place] [address] 25 May, 2013 [facility] [place] [facility] [address] [id number] [place] [address] May, [facility] [place] [facility] [address] [id number] [place] [address] May, [facility] [place] [facility] [address] [id number] [place] [address] May, [facility] [place] [facility] [address] [id number] [place] [address] May, [facility] [place] [facility] [address] [id number] [place] [address] May, [facility] [place] [facility] [address] [id number] [place] [address] May, [facility] [place] [facility] [address] [id number] [place] [address] May, [facility] [place] [facility] [address] [facility] [id number] [place] [address] May, [facility] [place] [facility] [address] [id number] [place] [address] May, [facility] [place] [facility] [address] [id number] [place] [address] May, [facility] [place] [facility] [address] [id number] [place] [address] May, [facility] [place] [facility] [address] [id number] [place] [address] Apr, [facility] [place] [facility] [address] [id number] [place] [address] Apr, [facility] [place] [facility] [address] [id number] [place] [address] Apr, [facility] [place] [facility] [address] [id number] [place] [address] Apr, [facility] [place] [facility] [address] [id number] [place] [address] Apr, [facility] [place] [facility] [address] [id number] [place] [address] Apr, [facility] [place] [facility] [address] [id number] [place] [address] Apr, [facility] [place] [facility] [address] [id number] [place] [address] Apr, [facility] [place] [facility] [address] [id number] [place] [address] Apr, [facility] [place] [facility] [address] [id number] [place] [address] Apr, [facility] [place] [facility] [address] [id number] [place] [address] Apr, [facility] [place] [facility] [address] [id number] [place] [address] Apr, [facility] [place] [facility] [address] [id number] [place] [address] Apr, [facility] [place] [facility] [address] [id number] [place] [address] Apr, [facility] [place] [facility] [address] [id number] [place] [address] Apr, [facility] [place] [facility] [address] [id number] [place] [address] Apr, [facility] [place] [facility] [address] [id number] [place] [address] Apr, [facility] [place] [facility] [address] [id number] [place] [address] Jan, [facility] [place] [facility] [address] [id number] [place] [address] Jan, [facility] [place] [facility] [address] [id number] [place] [address] 08 Jan, 2013 [facility] [place] [facility] [address] [id number] [place] [address] Jan, [facility] [place] [facility] [address] [id number] [place] [address] Jan, [facility] [place] [facility] [address] [id number] [place] [address] Jan, [facility] [place] [facility] [address] [id number] [place] [address] Jan, [facility] [place] [facility] [address] [id number] [place] [address] Dec, [facility] [place] [facility] [address] [id number] [place] [address] Dec, [facility] [place] [facility] [address] [id number] [place] [address] 08 Dec, 2012 [facility] [place] [facility] [address] [id number] [place] [address] 10 Nov, 2012 [facility] [place] [facility] [address] [id number] [place] [address] 10 Nov, 2012 [facility] [place] [facility] [address] [id number] [place] [address] 05 Nov, 2012 [facility] [place] [facility] [address] [id number] [place] [address] 04 Nov, 2012 [facility] [place] [facility] [address] [id number] [place] [address] Oct, [facility] [place] [facility] [address] [id number] [place] [address] Oct, [facility] [place] [facility] [address] [id number] [facility] [address] Oct, [facility] [place] [facility] [address] [facility] [id number] [facility] [address] Oct, [facility] [place] [facility] [address] [id number] [facility] [address] Oct, [facility] [place] [facility] [address] [id number] [facility] [address] Sep, [facility] [place] [facility] [address] [facility] [id number] [place] [address] Sep, [facility] [place] [facility] [address] [id number] [place] [address] Sep, [facility] [place] [facility] [address] [id number] [place] [address] Sep, [facility] [place] [facility] [address] [id number] [facility] [address] Sep, [facility] [place] [facility] [address] [id number] [facility] [address] Sep, [facility] [place] [facility] [address] [id number] [facility] [address] Sep, [facility] [place] [facility] [address] [id number] [place] [address] Aug, [facility] [place] [facility] [address] [id number] [place] [address] Aug, [facility] [place] [facility] [address] [id number] [facility] [address] July, [facility] [place] [facility] [address] [id number] [place] [address] Jun, [facility] [place] [facility] [address] [id number] [place] [address] Jun, [facility] [place] [facility] [address] [id number] [place] [address] Jun, [facility] [place] [facility] [address] [id number] [place] [address] Apr, [facility] [place] [facility] [address] [id number] [place] [address] Apr, [facility] [place] [facility] [address] [id number] [place] [address] Apr, [facility] [place] [facility] [address] [id number] [place] [address] Mar, [facility] [place] [facility] [address] [id number] [place] [address] Mar, [facility] [place] [facility] [address] [id number] [place] [address] Mar, [facility] [place] [facility] [address] [id number] [place] [address] Mar, [facility] [place] [facility] [address] [id number] [place] [address] Mar, [facility] [place] [facility] [address] [id number] [place] [address] 14 Feb, 2012 [facility] [place] [facility] [address] [id number] [place] [address] 14 Feb, 2012 [facility] [place] [facility] [address] [id number] [place] [address] Jan, [facility] [place] [facility] [address] [id number] [place] [address] Jan, [facility] [place] [facility] [address] [id number] [place] [address] Jan, [facility] [place] [facility] [address] [id number] [place] [address] 13 Jan, 2012 [facility] [place] [facility] [address] [id number] [place] [address] Jan, [facility] [place] [facility] [address] [id number] [place] [address] 07 Jan, 2012 [facility] [place] [facility] [address] [id number] [place] [address] Jan, [facility] [place] [facility] [address] [id number] [place] [address] Dec, [facility] [place] [facility] [address] [id number] [place] [address] Dec, [facility] [place] [facility] [address] [id number] [place] [address] Dec, [facility] [place] [facility] [address] [id number] [place] [address] Dec, [facility] [place] [facility] [address] [id number] [place] [address] Dec, [facility] [place] [facility] [address] [id number] [place] [address] Dec, [facility] [place] [facility] [address] [id number] [place] [address] Dec, [facility] [place] [facility] [address] [id number] [place] [address] Dec, [facility] [place] [facility] [address] [id number] [place] [address] Dec, [facility] [place] [facility] [address] [id number] [place] [address] Dec, [facility] [place] [facility] [address] [id number] [place] [address] Oct, [facility] [place] [facility] [address] [id number] [place] [address] Oct, [facility] [place] [facility] [address] [id number] [place] [address] Aug, [facility] [place] [facility] [address] [id number] [place] [address] Aug, [facility] [place] [facility] [address] [id number] [place] [address] July, [facility] [place] [facility] [address] [id number] [place] [address] Jun, [facility] [place] [facility] [address] [id number] [place] [address] Jun, [facility] [place] [facility] [address] [id number] [place] [address] May, [facility] [place] [facility] [address] [id number] [place] [address] Apr, [facility] [place] [facility] [address] [id number] [place] [address] Apr, [facility] [place] [facility] [address] [id number] [place] [address] Mar, [facility] [place] [facility] [address] [id number] [place] [address] Mar, [facility] [place] [facility] [address] [id number] [place] [address] Feb, [facility] [place] [facility] [address] [id number] [place] [address] 15 Feb, 2011 [facility] [place] [facility] [address] [id number] [place] [address] Feb, [facility] [place] [facility] [address] [id number] [place] [address] Feb, [facility] [place] [facility] [address] [id number] [place] [address] Jan, [facility] [place] [facility] [address] [id number] [place] [address] 17 Dec, 2010 [facility] [place] [facility] [address] [id number] [place] [address] 08 Feb, 2010 [facility] [place] [facility] [address] [id number] [place] [address] Feb, [facility] [place] [facility] [address] [id number] [place] [address] Feb, [facility] [place] [facility] [address] [id number] [place] [address] Feb, [facility] [place] [facility] [address] [id number] [place] [address] 15 Dec, 2009 [facility] [place] [facility] [address] [id number] [place] [address] 15 Dec, 2009 [facility] [address] [id number] [place] [address] Oct, [facility] [address] [id number] [place] [address] Jun, [facility] [address] [id number] [place] [address] Feb, [facility] [address] [id number] [place] [address] Feb, [facility] [address] [id number] [place] [address] Feb, [facility] [address] [id number] [place] [address] Dec, IMMUNIZATIONS No Known Immunizations SOCIAL HISTORY [...] 1985, 1987 Surgical History cholecystectomy Surgical History Dryfork Filter 06/2009 Surgical History Left leg exploratory surgery r/t clot Surgical History left shoulder surgery 09/14/17 Surgical History lap band removed 12/2017 Surgical History gastic sleeve 01/2018 Surgical History Back surgery 2019 Surgical History Partial Thyroidectomy - left side 2019 Hospitalization History Ruptured Ovarian Cyst with abd bleed ing 11/2009 Hospitalization History Broken Back 06/2018
--- OUTSIDE RECORDS SUMMARY | 2019-10-19 12:54 | XMS REPORT ---
Author Author KIANA Mary Jane RAMIREZ Organization [facility] Address [address] [place] [address] Care Team Providers Care Director Talent Acquisition Name Role Phone ASHLEY BRUNO Unavailable PROBLEMS Type Condition ICD9-CM Code SYX97-EY Code Onset Dates Condition S tatus SNOMED Code Problem Thyroid follicular adenoma D34 Act phylicia 705835479 Problem History of DVT (deep vein thrombosis) Z86.718 Active 625255355 Problem Factor V Leiden D68.51 Active 3070 89015 Problem manager intermediate (current) use of anticoagulants Z79.01 Active 356702677 Problem Hypertriglyceridemia E78.1 Active 951197311 Problem 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 Active 131037282 Problem Pelvic pain R10.2 Active 47988017 Problem Peripheral edema R60.9 Active 271 643216 Problem Moderate episode of recurrent major depressive disorder F33.1 Active 425629853 Problem Presence of IVC filter Z95.828 Active 186242348 Problem Vitamin D deficiency E55.9 Active 78788706 Problem Generalized anxiety disorder F41.1 A ctive 674382372 Problem Excessive daytime sleepiness G47.19 A ctive 469985125936 Problem Gastroesophageal reflux disease, esophagitis pre sence not specified K21.9 Active 242034887 Problem Thyroid nodule E04.1 Active 05308 5005 Problem Morbid obesity E66.01 Active 13658 6002 ALLERGIES No Information ENCOUNTERS Encounter Location Date Diagnosis [facility] [address] [id number] [place] [address] 12 Apr, 2019 Back pain with history of spinal surgery M54.9 [facility] [address] [id number] [place] [address] 11 Apr, 2019 [facility] [address] [id number] [place] [address] 10 Apr, 2019 Gastroenteritis K52.9 ; Back pain with h istory of spinal surgery M54.9 and Dermatofibroma of lower leg, unspecified laterality D23.70 [place] [address] [address] Mar, [place] [address] [address] Jan, [place] [address] [address] Jan, [place] [address] [address] Dec, Encounter for weight management Z76.89 [place] [address] [address] Dec, Encounter for weight management Z76.89 a nd Screening mammogram, encounter for Z12.31 [place] [address] [address] Nov, Encounter for weight management Z76.89 [place] [address] [address] Nov, Thyroid nodule E04.1 [place] [address] [address] Nov, Thyroid nodule E04.1 [place] [address] [address] Nov, Thyroid nodule E04.1 [place] [address] [address] Oct, Syncope, unspecified syncope type R55 an d Encounter for weight management Z76.89 [place] [address] [address] Oct, Morbid obesity E66.01 [place] [address] [address] Oct, Hypertriglyceridemia E78.1 [place] [address] [address] Oct, [facility] [address] [address] Oct, Hypertriglyceridemia E78.1 [facility] [address] [address] Sep, Hypertriglyceridemia E78.1 and Vitamin D deficiency E55.9 [facility] [address] [address] Sep, [facility] [address] [address] Sep, Morbid obesity E66.01 ; Moderate episode of recurrent major depressive disorder F33.1 ; Hypertriglyceridemia E78.1 and Vitamin D deficiency E55.9 [facility] [address] [address] Aug, [facility] [address] [address] July, [facility] [address] [address] July, [facility] [address] [address] Jun, [facility] [address] [address] Jun, [facility] [address] [address] Jun, Closed compression fracture of L3 lumbar vertebra with routine healing, subsequent encounter S32.030D and Drug-induced constipation K59.03 [facility] [address] [address] Jun, [facility] [address] [address] Jun, [facility] [address] [address] Apr, [facility] [address] [address] Apr, Morbid obesity E66.01 [facility] [address] [address] 12 Apr, 2018 Morbid obesity E66.01 ; Hypertriglycerid emia E78.1 ; Gastroesophageal reflux disease, esophagitis presence not specified K21.9 and Joint pain M25.50 [facility] [address] [address] Feb, [facility] [address] [address] Feb, [facility] [address] [facility] [id number] [address] [place] [address] Jan, Acute bacterial conjunctivit is H10.30 [place] [address] [address] 08 Dec, 2017 [place] [address] [address] 04 Dec, 2017 [facility] [address] [address] 17 Nov, 2017 [place] [address] [address] 07 Nov, 2017 Obstructive sleep apnea G47.33 ; Morbid obesity E66.01 and Gastroesophageal reflux disease, esophagitis presence not specified K21.9 [facility] [address] [facility] [place] [id number] 06 Nov, 2017 Encounter for examination of eyes and vi ray without abnormal findings Z01.00 [place] [address] [address] 31 Oct, 2017 Thyroid nodule E04.1 and Screening for b reast cancer Z12.[address] [address] 23 Oct, 2017 History of DVT (deep vein thrombosis) Z8 6.718 ; Thyroid nodule E04.1 and Gastroesophageal reflux disease, esophagitis presence not specified K21.9 [place] [address] [address] Oct, [place] [address] [address] Sep, [place] [address] [address] Aug, [place] [address] [address] Aug, [place] [address] [address] Aug, Acute pain of left shoulder M25.512 and Thyroid nodule E04.1 [place] [address] [address] July, Superior glenoid labrum lesion of left mehdi roy, subsequent encounter S43.432D [place] [address] [address] Jun, History of DVT (deep vein thrombosis) Z8 6.718 [place] [address] [address] Jun, History of DVT (deep vein thrombosis) Z8 6.718 [place] [address] [address] Jun, Impingement syndrome, shoulder, left M75 .42 [place] [address] [address] May, Subacromial bursitis of left shoulder saurabh int M75.52 [place] [address] [address] May, [address] [address] May, Hypertriglyceridemia E78.1 ; manager intermediate ( current) use of anticoagulants Z79.01 and Excessive daytime sleepiness G47.19 [place] [address] [address] May, History of DVT (deep vein thrombosis) Z8 6.718 ; Generalized anxiety disorder F41.1 ; Hypertriglyceridemia E78.1 ; manager intermediate (current) use of anticoagulants Z79.01 ; Subacromial bursitis of left shoulder joint M75.52 and Excessive daytime sleepiness G47.19 [place] [address] [address] May, [place] [address] [address] May, manager intermediate (current) use of anticoagulant s Z79.01 [place] [address] [address] Apr, [facility] (current) use of anticoagulant s Z79.01 [place] [address] [address] Apr, manager intermediate (current) use of anticoagulant s Z79.01 [place] [address] [address] Apr, [facility] (current) use of anticoagulant s Z79.01 [place] [address] [address] Apr, [place] [address] [address] Apr, [facility] (current) use of anticoagulant s Z79.01 [place] [address] [address] 13 Apr, 2017 [facility] (current) use of anticoagulant s Z79.01 [place] [address] [address] Apr, [facility] (current) use of anticoagulant s Z79.01 [place] [address] [address] Apr, manager intermediate (current) use of anticoagulant s Z79.01 [place] [address] [address] 07 Apr, 2017 manager intermediate (current) use of anticoagulant s Z79.01 [facility] [address] [address] Apr, [facility] (current) use of anticoagulant s Z79.01 [facility] [address] [address] Mar, manager intermediate (current) use of anticoagulant s Z79.01 [facility] [address] [address] Mar, [facility] [address] [address] Mar, [facility] (current) use of anticoagulant s Z79.01 [facility] [address] [id number] Jan, Dental examination Z01.20 [facility] [address] [id number] Jan, [facility] [address] [address] Jan, [facility] (current) use of anticoagulant s Z79.01 [place] [address] [address] Jan, History of DVT (deep vein thrombosis) Z8 6.718 [place] [address] [address] Jan, Generalized anxiety disorder F41.1 and P eripheral edema R60.9 [facility] [address] [address] Nov, History of DVT (deep vein thrombosis) Z8 6.718 [place] [address] [address] Nov, manager intermediate (current) use of anticoagulant s Z79.01 [facility] [address] [facility] [id number] [address] [place] [address] 09 Nov, 2016 Acute non-recurrent maxillar y sinusitis J01.00 [place] [address] [address] Oct, [facility] (current) use of anticoagulant s Z79.01 [place] [address] [address] Oct, Personal history of venous thrombosis an d embolism Z86.718 [place] [address] [address] Sep, [place] [address] [address] Sep, Personal history of venous thrombosis an d embolism Z86.718 [place] [address] [address] Sep, manager intermediate (current) use of anticoagulant s Z79.01 [place] [address] [address] Sep, [facility] (current) use of anticoagulant s Z79.01 [place] [address] [address] Sep, Generalized anxiety disorder F41.1 and H istory of DVT (deep vein thrombosis) Z86.718 [place] [address] [address] Aug, History of DVT (deep vein thrombosis) Z8 6.718 ; Generalized anxiety disorder F41.1 ; [facility] (current) use of anticoagulants Z79.01 ; Pelvic pain R10.2 ; Hypertriglyceridemia E78.1 ; Excessive daytime sleepiness G47.19 ; Colon cancer screening Z12.11 ; Screening for breast cancer Z12.39 ; Peripheral edema R60.9 and Gastroesophageal reflux disease, esophagitis presence not specified K21.9 [place] [address] [address] Aug, [place] [address] [address] July, [place] [address] [address] July, History of DVT (deep vein thrombosis) Z8 6.718 [place] [address] [address] Jun, Generalized anxiety disorder F41.1 [place] [address] [address] Jun, History of DVT (deep vein thrombosis) Z8 6.718 [place] [address] [address] Jun, History of DVT (deep vein thrombosis) Z8 6.718 [place] [address] [address] Jun, History of DVT (deep vein thrombosis) Z8 6.718 [place] [address] [address] Jun, History of DVT (deep vein thrombosis) Z8 6.718 [place] [address] [address] May, History of DVT (deep vein thrombosis) Z8 6.718 [place] [address] [address] May, [facility] (current) use of anticoagulant s Z79.01 [place] [address] [address] May, manager intermediate (current) use of anticoagulant s Z79.01 [place] [address] [address] May, History of DVT (deep vein thrombosis) Z8 6.718 [facility] [address] [facility] [id number] [address] [place] [address] Apr, Bacterial conjunctivitis of left eye H10.9 and H/O motion sickness Z87.898 [place] [address] [address] Apr, History of DVT (deep vein thrombosis) Z8 6.718 [place] [address] [address] 23 Apr, 2016 History of DVT (deep vein thrombosis) Z8 6.718 [facility] [address] [address] 15 Apr, 2016 History of DVT (deep vein thrombosis) Z8 6.718 [place] [address] [address] 14 Apr, 2016 manager intermediate (current) use of anticoagulant s Z79.01 [place] [address] [address] Mar, [place] [address] [address] Mar, [facility] (current) use of anticoagulant s Z79.01 [place] [address] [address] Mar, Hypertriglyceridemia E78.1 and manager intermediate (current) use of anticoagulants Z79.01 [place] [address] [address] Feb, manager intermediate (current) use of anticoagulant s Z79.01 [place] [address] [address] Feb, [facility] (current) use of anticoagulant s Z79.01 [place] [address] [address] Feb, [facility] (current) use of anticoagulant s Z79.01 [place] [address] [address] Dec, [place] [address] [address] Nov, [place] [address] [address] Nov, History of DVT (deep vein thrombosis) Z8 6.718 ; Tremulousness R25.1 ; Generalized anxiety disorder F41.1 ; Peripheral edema R60.9 and Hypertriglyceridemia E78.1 [place] [address] [address] Oct, History of DVT (deep vein thrombosis) Z8 6.718 [place] [address] [address] Oct, [place] [address] [address] Sep, History of DVT (deep vein thrombosis) Z8 6.718 [place] [address] [address] Sep, manager intermediate (current) use of anticoagulant s Z79.01 [place] [address] [address] July, [place] [address] [address] July, manager intermediate (current) use of anticoagulant s Z79.01 [place] [address] [address] July, [facility] (current) use of anticoagulant s Z79.01 [place] [address] [address] Jun, [facility] (current) use of anticoagulant s Z79.01 [facility] [place] [id number] [place] [address] Jun, Coccyx pain M53.3 ; Encounte r for therapeutic drug level monitoring Z51.81 and manager intermediate current use 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.01 [place] [address] [address] May, Abnormal mammogram R92.8 [facility] [place] [address] [place] [id number] [place] [address] May, [facility] [address] [address] May, Acute vaginitis N76.0 and En counter for other screening for malignant neoplasm of breast Z12.39 [place] [address] [address] Apr, [place] [address] [address] Apr, [place] [address] [address] Apr, Peripheral edema R60.9 [place] [address] [address] Apr, manager intermediate (current) use of anticoagulant s Z79.01 [place] [address] [address] Apr, Peripheral edema R60.9 and manager intermediate (cu rrent) use of anticoagulants Z79.01 [place] [address] [address] Apr, manager intermediate (current) use of anticoagulant s Z79.01 [place] [address] [address] Apr, [place] [address] [address] Apr, [facility] (current) use of anticoagulant s Z79.01 [place] [address] [address] Apr, Peripheral edema R60.9 [place] [address] [address] Mar, manager intermediate (current) use of anticoagulant s Z79.01 [place] [address] [address] Mar, [facility] (current) use of anticoagulant s Z79.01 and Hypertriglyceridemia E78.1 [place] [address] [address] Mar, [facility] (current) use of anticoagulant s Z79.01 [place] [address] [address] Mar, manager intermediate (current) use of anticoagulant s Z79.01 [place] [address] [address] Mar, [place] [address] [address] Mar, [facility] (current) use of anticoagulant s Z79.01 ; Hypertriglyceridemia E78.1 ; Personal history of venous thrombosis and embolism Z86.718 and Lump R22.9 [place] [address] [address] Mar, Personal history of venous thrombosis an d embolism Z86.718 [place] [address] [address] Mar, Personal history of venous thrombosis an d embolism Z86.718 [place] [address] [address] Mar, [place] [address] [address] Dec, Personal history of venous thrombosis an d embolism Z86.718 [place] [address] [address] Dec, Personal history of venous thrombosis an d embolism V12.51 [place] [address] [address] Nov, Personal history of venous thrombosis an d embolism V12.51 [place] [address] [address] 25 Nov, 2014 Personal history of venous thrombosis an d embolism V12.51 [place] [address] [address] 17 Nov, 2014 Personal history of venous thrombosis an d embolism V12.51 [place] [address] [address] Nov, Personal history of venous thrombosis an d embolism V12.51 [facility] [address] [address] Nov, [facility] [address] [address] Oct, Dysuria 788.1 [facility] [address] [address] Oct, Personal history of venous thrombosis an d embolism V12.51 [place] [address] [address] Oct, [place] [address] [address] Oct, Personal history of venous thrombosis an d embolism V12.51 [place] [address] [address] Sep, Personal history of venous thrombosis an d embolism V12.51 [place] [address] [address] Sep, Personal history of venous thrombosis an d embolism V12.51 [place] [address] [address] Aug, Personal history of venous thrombosis an d embolism V12.51 [place] [address] [address] Aug, Personal history of venous thrombosis an d embolism V12.51 [place] [address] [address] Aug, Personal history of venous thrombosis an d embolism V12.51 [place] [address] [address] July, Generalized anxiety disorder 300.02 ; Ab dominal pain, left lower quadrant 789.04 and Personal history of venous thrombosis and embolism V12.51 [place] [address] [place] [address] 14 Jun, 2014 [facility] [address] [facility] [id number] [place] [address] Jun, [facility] [address] [id number] [place] [address] May, [facility] [address] [id number] [place] [address] May, [facility] [address] [id number] [place] [address] May, [facility] [address] [id number] [place] [address] May, [facility] [address] [id number] [place] [address] May, [facility] [address] [id number] [place] [address] May, [facility] [address] [id number] [place] [address] May, [facility] [address] [id number] [place] [address] May, [facility] [address] [id number] [place] [address] Apr, [facility] [address] [id number] [place] [address] Apr, [facility] [address] [id number] [place] [address] Apr, [facility] [address] [id number] [place] [address] Apr, [facility] [address] [id number] [place] [address] Apr, [facility] [address] [id number] [place] [address] Mar, [facility] [address] [id number] [place] [address] Mar, [facility] [address] [id number] [place] [address] Mar, [facility] [address] [id number] [place] [address] Mar, [facility] [address] [id number] [place] [address] Mar, [facility] [address] [id number] [place] [address] Mar, [facility] [address] [id number] [place] [address] Feb, [facility] [address] [id number] [place] [address] Feb, [facility] [address] [id number] [place] [address] Feb, [facility] [address] [id number] [place] [address] Feb, [facility] [address] [id number] [place] [address] Feb, [facility] [address] [id number] [place] [address] Feb, [facility] [address] [id number] [place] [address] Feb, [facility] [address] [id number] [place] [address] Feb, [facility] [address] [id number] [place] [address] Feb, [facility] [address] [id number] [place] [address] Feb, [facility] [address] [id number] [place] [address] Jan, [facility] [address] [id number] [place] [address] Jan, [facility] [address] [id number] [place] [address] Jan, [facility] [address] [facility] [id number] [place] [address] Jan, [facility] [address] [id number] [place] [address] Jan, [facility] [address] [id number] [place] [address] Jan, [facility] [address] [id number] [place] [address] Jan, [facility] [address] [id number] [place] [address] Jan, [facility] [address] [id number] [place] [address] Jan, [facility] [address] [id number] [place] [address] Jan, [facility] [address] [id number] [place] [address] Dec, [facility] [address] [id number] [place] [address] Dec, [facility] [address] [id number] [place] [address] Dec, [facility] [address] [id number] [place] [address] Dec, [facility] [address] [id number] [place] [address] Dec, [facility] [address] [id number] [place] [address] Dec, [facility] [address] [id number] [place] [address] Dec, [facility] [address] [id number] [place] [address] Dec, [facility] [address] [id number] [place] [address] Dec, [facility] [address] [id number] [place] [address] 10 Dec, 2013 [facility] [address] [facility] [id number] [place] [address] Dec, 2013 [facility] [address] [facility] [id number] [place] [address] Dec, 2013 [facility] [id number] [place] [address] Dec, [facility] [place] [facility] [id number] [place] [address] Dec, [facility] [place] [facility] [address] [facility] [id number] [place] [address] Dec, [facility] [place] [facility] [id number] [place] [address] 30 Nov, 2013 [facility] [place] [facility] [id number] [place] [address] 30 Nov, 2013 [facility] [place] [facility] [id number] [place] [address] 26 Sep, 2013 [facility] [place] [facility] [id number] [place] [address] 26 Sep, 2013 [facility] [place] [facility] [id number] [place] [address] 24 Nov, 2013 [facility] [place] [facility] [id number] [place] [address] 24 Sep, 2013 [facility] [place] [facility] [id number] [place] [address] 23 Sep, 2013 [facility] [place] [facility] [address] [facility] [id number] [place] [address] 23 Sep, 2013 [facility] [place] [facility] [id number] [place] [address] 18 Sep, 2013 [facility] [place] [facility] [id number] [place] [address] 18 Sep, 2013 [facility] [place] [facility] [id number] [place] [address] 17 Sep, 2013 [facility] [place] [facility] [address] [facility] [id number] [place] [address] 17 Nov, 2013 [facility] [place] [facility] [address] [facility] [id number] [place] [address] 11 Nov, 2013 [facility] [place] [facility] [address] [facility] [id number] [place] [address] 11 Nov, 2013 [facility] [place] [facility] [address] [facility] [id number] [place] [address] 10 Nov, 2013 [facility] [place] [facility] [address] [facility] [id number] [place] [address] 10 Nov, 2013 [facility] [place] [facility] [id number] [place] [address] 08 Nov, 2013 [facility] [place] [facility] [id number] [place] [address] 08 Nov, 2013 [facility] [place] [facility] [id number] [place] [address] Sep, 2013 [facility] [place] [facility] [id number] [place] [address] Sep, 2013 [facility] [place] [facility] [id number] [place] [address] Sep, 2013 [facility] [place] [facility] [id number] [place] [address] Sep, 2013 [facility] [place] [facility] [id number] [place] [address] Sep, 2013 [facility] [place] [facility] [id number] [place] [address] Sep, 2013 [facility] [place] [facility] [address] [facility] [id number] [place] [address] Aug, [facility] [place] [facility] [id number] [place] [address] Aug, [facility] [place] [facility] [id number] [place] [address] Aug, [facility] [place] [facility] [id number] [place] [address] Aug, [facility] [place] [facility] [address] [facility] [id number] [place] [address] 24 Aug, 2013 [facility] [place] [facility] [address] [facility] [id number] [place] [address] Aug, [facility] [place] [facility] [id number] [place] [address] Aug, [facility] [place] [facility] [id number] [place] [address] Aug, [facility] [place] [facility] [address] [facility] [id number] [place] [address] Aug, [facility] [place] [facility] [id number] [place] [address] Aug, [facility] [place] [facility] [id number] [place] [address] Aug, [facility] [place] [facility] [id number] [place] [address] July, [facility] [place] [facility] [id number] [place] [address] July, [facility] [place] [facility] [id number] [place] [address] Jun, [facility] [place] [facility] [id number] [place] [address] Jun, [facility] [place] [facility] [id number] [place] [address] Jun, [facility] [place] [facility] [id number] [place] [address] Jun, [facility] [place] [facility] [id number] [place] [address] Jun, [facility] [place] [facility] [id number] [place] [address] Jun, [facility] [place] [facility] [id number] [place] [address] 15 Jun, 2013 [facility] [place] [facility] [id number] [place] [address] 15 Jun, 2013 [facility] [place] [facility] [address] [facility] [id number] [place] [address] 11 Jun, 2013 [facility] [place] [facility] [address] [facility] [id number] [place] [address] 11 Jun, 2013 [facility] [place] [facility] [id number] [place] [address] 10 Jun, 2013 [facility] [place] [facility] [address] [facility] [id number] [place] [address] 10 Jun, 2013 [facility] [place] [facility] [address] [facility] [id number] [place] [address] 25 May, 2013 [facility] [place] [facility] [id number] [place] [address] May, [facility] [place] [facility] [id number] [place] [address] May, [facility] [place] [facility] [id number] [place] [address] May, [facility] [place] [facility] [id number] [place] [address] May, [facility] [place] [facility] [id number] [place] [address] May, [facility] [place] [facility] [id number] [place] [address] May, [facility] [place] [facility] [id number] [place] [address] May, [facility] [place] [facility] [address] [facility] [id number] [place] [address] May, [facility] [place] [facility] [id number] [place] [address] May, [facility] [place] [facility] [id number] [place] [address] May, [facility] [place] [facility] [id number] [place] [address] May, [facility] [place] [facility] [id number] [place] [address] Apr, [facility] [place] [facility] [id number] [place] [address] Apr, [facility] [place] [facility] [id number] [place] [address] Apr, [facility] [place] [facility] [id number] [place] [address] Apr, [facility] [place] [facility] [id number] [place] [address] Apr, [facility] [place] [facility] [id number] [place] [address] Apr, [facility] [place] [facility] [id number] [place] [address] Apr, [facility] [place] [facility] [id number] [place] [address] Apr, [facility] [place] [facility] [id number] [place] [address] Apr, [facility] [place] [facility] [id number] [place] [address] Apr, [facility] [place] [facility] [id number] [place] [address] Apr, [facility] [place] [facility] [id number] [place] [address] Apr, [facility] [place] [facility] [id number] [place] [address] Apr, [facility] [place] [facility] [id number] [place] [address] Apr, [facility] [place] [facility] [id number] [place] [address] Apr, [facility] [place] [facility] [id number] [place] [address] Apr, [facility] [place] [facility] [id number] [place] [address] Apr, [facility] [place] [facility] [id number] [place] [address] Jan, [facility] [place] [facility] [id number] [place] [address] Jan, [facility] [place] [facility] [id number] [place] [address] 08 Jan, 2013 [facility] [place] [facility] [id number] [place] [address] Jan, [facility] [place] [facility] [id number] [place] [address] Jan, [facility] [place] [facility] [id number] [place] [address] Jan, [facility] [place] [facility] [id number] [place] [address] Jan, [facility] [place] [facility] [id number] [place] [address] Dec, [facility] [place] [facility] [id number] [place] [address] Dec, [facility] [place] [facility] [id number] [place] [address] 08 Dec, 2012 [facility] [place] [facility] [id number] [place] [address] 10 Nov, 2012 [facility] [place] [facility] [id number] [place] [address] 10 Nov, 2012 [facility] [place] [facility] [id number] [place] [address] 05 Nov, 2012 [facility] [place] [facility] [id number] [place] [address] 04 Nov, 2012 [facility] [place] [facility] [id number] [place] [address] Oct, [facility] [place] [facility] [id number] [place] [address] Oct, [facility] [place] [facility] [address] [id number] [place] [address] Oct, [facility] [place] [facility] [address] [facility] [id number] [place] [address] Oct, [facility] [place] [facility] [id number] [place] [address] Oct, [facility] [place] [facility] [address] [id number] [place] [address] Sep, [facility] [place] [facility] [address] [facility] [id number] [place] [address] Sep, [facility] [place] [facility] [id number] [place] [address] Sep, [facility] [place] [facility] [id number] [place] [address] Sep, [facility] [place] [facility] [id number] [place] [address] Sep, [facility] [place] [facility] [id number] [place] [address] Sep, [facility] [place] [facility] [id number] [place] [address] Sep, [facility] [place] [facility] [id number] [place] [address] Aug, [facility] [place] [facility] [id number] [place] [address] Aug, [facility] [place] [facility] [id number] [place] [address] July, [facility] [place] [facility] [address] [id number] [place] [address] Jun, [facility] [place] [facility] [id number] [place] [address] Jun, [facility] [place] [facility] [id number] [place] [address] Jun, [facility] [place] [facility] [id number] [place] [address] Apr, [facility] [place] [facility] [id number] [place] [address] Apr, [facility] [place] [facility] [id number] [place] [address] Apr, [facility] [place] [facility] [id number] [place] [address] Mar, [facility] [place] [facility] [id number] [place] [address] Mar, [facility] [place] [facility] [id number] [place] [address] Mar, [facility] [place] [facility] [id number] [place] [address] Mar, [facility] [place] [facility] [id number] [place] [address] Mar, [facility] [place] [facility] [id number] [place] [address] 14 Feb, 2012 [facility] [place] [facility] [id number] [place] [address] 14 Feb, 2012 [facility] [place] [facility] [id number] [place] [address] Jan, [facility] [place] [facility] [id number] [place] [address] Jan, [facility] [place] [facility] [id number] [place] [address] Jan, [facility] [place] [facility] [id number] [place] [address] 13 Jan, 2012 [facility] [place] [facility] [id number] [place] [address] Jan, [facility] [place] [facility] [id number] [place] [address] 07 Jan, 2012 [facility] [place] [facility] [id number] [place] [address] Jan, [facility] [place] [facility] [id number] [place] [address] Dec, [facility] [place] [facility] [id number] [place] [address] Dec, [facility] [place] [facility] [id number] [place] [address] Dec, [facility] [place] [facility] [id number] [place] [address] Dec, [facility] [place] [facility] [id number] [place] [address] Dec, [facility] [place] [facility] [id number] [place] [address] Dec, [facility] [place] [facility] [id number] [place] [address] Dec, [facility] [place] [facility] [id number] [place] [address] Dec, [facility] [place] [facility] [id number] [place] [address] Dec, [facility] [place] [facility] [id number] [place] [address] Dec, [facility] [place] [facility] [id number] [place] [address] Oct, [facility] [place] [facility] [id number] [place] [address] Oct, [facility] [place] [facility] [id number] [place] [address] Aug, [facility] [place] [facility] [id number] [place] [address] Aug, [facility] [place] [facility] [id number] [place] [address] July, [facility] [place] [facility] [id number] [place] [address] Jun, [facility] [place] [facility] [id number] [place] [address] Jun, [facility] [place] [facility] [id number] [place] [address] May, [facility] [place] [facility] [id number] [place] [address] Apr, [facility] [place] [facility] [address] [id number] [place] [address] Apr, [facility] [place] [facility] [address] [id number] [place] [address] Mar, [facility] [place] [facility] [id number] [place] [address] Mar, [facility] [place] [facility] [id number] [place] [address] Feb, [facility] [place] [facility] [id number] [place] [address] 15 Feb, 2011 [facility] [place] [facility] [id number] [place] [address] Feb, [facility] [place] [facility] [address] [id number] [place] [address] Feb, [facility] [place] [facility] [address] [id number] [place] [address] Jan, [facility] [place] [facility] [address] [id number] [place] [address] 17 Dec, 2010 [facility] [place] [facility] [id number] [place] [address] 08 Feb, 2010 [facility] [place] [facility] [id number] [place] [address] Feb, [facility] [place] [facility] [id number] [place] [address] Feb, [facility] [place] [facility] [address] [id number] [place] [address] Feb, [facility] [place] [facility] [address] [id number] [place] [address] 15 Dec, 2009 [facility] [place] [facility] [id number] [place] [address] 15 Dec, 2009 [facility] [id number] [place] [address] Oct, [facility] [id number] [place] [address] Jun, [facility] [id number] [place] [address] Feb, [facility] [id number] [place] [address] Feb, [facility] [id number] [place] [address] Feb, [facility] [id number] [place] [address] Dec, IMMUNIZATIONS No Known Immunizations SOCIAL HISTORY [...] 1985, 1987 Surgical History cholecystectomy Surgical History Enfield Filter 06/2009 Surgical History Left leg exploratory surgery r/t clot Surgical History left shoulder surgery 09/14/17 Surgical History lap band removed 12/2017 Surgical History gastic sleeve 01/2018 Surgical History Back surgery 2019 Surgical History Partial Thyroidectomy - left side 2019 Hospitalization History Ruptured Ovarian Cyst with abd bleed ing 11/2009 Hospitalization History Broken Back 06/2018
--- OUTSIDE RECORDS SUMMARY | 2019-10-19 12:54 | XMS REPORT ---
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 Active 834529946 Problem Hypertriglyceridemia E78.1 Active 324601158 Problem 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 Active 251084462 Problem Pelvic pain R10.2 Active 87398482 Problem Peripheral edema R60.9 Active 271 672137 Problem Moderate episode of recurrent major depressive disorder F33.1 Active 201865521 Problem Presence of IVC filter Z95.828 Active 526885019 Problem Vitamin D deficiency E55.9 Active 07889754 Problem Generalized anxiety disorder F41.1 A ctive 518384802 Problem Excessive daytime sleepiness G47.19 A ctive 167618033278 Problem Gastroesophageal reflux disease, esophagitis pre sence not specified K21.9 Active 085071553 Problem Thyroid nodule E04.1 Active 74158 5005 Problem Morbid obesity E66.01 Active 23406 6002 ALLERGIES No Information ENCOUNTERS Encounter Location Date Diagnosis [facility] [address] [id number] [place] [address] 12 Apr, 2019 Back pain with history of spinal surgery M54.9 [facility] [address] [id number] [place] [address] 11 Apr, 2019 [facility] [address] [facility] [place] [address] 10 Apr, 2019 Gastroenteritis K52.9 ; Back pain with h istory of spinal surgery M54.9 and Dermatofibroma of lower leg, unspecified laterality D23.70 [place] [address] [address] Mar, [place] [address] [address] Jan, [place] [address] [address] Jan, [place] [address] [address] Dec, Encounter for weight management Z76.89 [place] [address] [address] Dec, Encounter for weight management Z76.89 a nd Screening mammogram, encounter for Z12.31 [place] [address] [address] Nov, Encounter for weight management Z76.89 [place] [address] [address] Nov, Thyroid nodule E04.1 [place] [address] [address] Nov, Thyroid nodule E04.1 [place] [address] [address] Nov, Thyroid nodule E04.1 [place] [address] [address] Oct, Syncope, unspecified syncope type R55 an d Encounter for weight management Z76.89 [place] [address] [address] Oct, Morbid obesity E66.01 [place] [address] [address] Oct, Hypertriglyceridemia E78.1 [place] [address] [address] Oct, [facility] [address] [address] Oct, Hypertriglyceridemia E78.1 [facility] [address] [address] Sep, Hypertriglyceridemia E78.1 and Vitamin D deficiency E55.9 [facility] [address] [address] Sep, [facility] [address] [address] Sep, Morbid obesity E66.01 ; Moderate episode of recurrent major depressive disorder F33.1 ; Hypertriglyceridemia E78.1 and Vitamin D deficiency E55.9 [facility] [address] [address] Aug, [facility] [address] [address] July, [facility] [address] [address] July, [facility] [address] [address] Jun, [facility] [address] [address] Jun, [facility] [address] [address] Jun, Closed compression fracture of L3 lumbar vertebra with routine healing, subsequent encounter S32.030D and Drug-induced constipation K59.03 [facility] [address] [address] Jun, [facility] [address] [address] Jun, [facility] [address] [address] Apr, [facility] [address] [address] Apr, Morbid obesity E66.01 [facility] [address] [address] 12 Apr, 2018 Morbid obesity E66.01 ; Hypertriglycerid emia E78.1 ; Gastroesophageal reflux disease, esophagitis presence not specified K21.9 and Joint pain M25.50 [facility] [address] [address] Feb, [facility] [address] [address] Feb, [facility] [address] [facility] [id number] [address] [place] [address] Jan, Acute bacterial conjunctivit is H10.30 [place] [address] [address] 08 Dec, 2017 [place] [address] [address] 04 Dec, 2017 [facility] [address] [address] 17 Nov, 2017 [place] [address] [address] 07 Nov, 2017 Obstructive sleep apnea G47.33 ; Morbid obesity E66.01 and Gastroesophageal reflux disease, esophagitis presence not specified K21.9 [facility] [address] [facility] [place] [id number] 06 Nov, 2017 Encounter for examination of eyes and vi ray without abnormal findings Z01.00 [place] [address] [address] 31 Oct, 2017 Thyroid nodule E04.1 and Screening for b reast cancer Z12.[address] [address] 23 Oct, 2017 History of DVT (deep vein thrombosis) Z8 6.718 ; Thyroid nodule E04.1 and Gastroesophageal reflux disease, esophagitis presence not specified K21.9 [place] [address] [address] Oct, [place] [address] [address] Sep, [place] [address] [address] Aug, [place] [address] [address] Aug, [place] [address] [address] Aug, Acute pain of left shoulder M25.512 and Thyroid nodule E04.1 [place] [address] [address] July, Superior glenoid labrum lesion of left mehdi roy, subsequent encounter S43.432D [place] [address] [address] Jun, History of DVT (deep vein thrombosis) Z8 6.718 [place] [address] [address] Jun, History of DVT (deep vein thrombosis) Z8 6.718 [place] [address] [address] Jun, Impingement syndrome, shoulder, left M75 .42 [place] [address] [address] May, Subacromial bursitis of left shoulder saurabh int M75.52 [place] [address] [address] May, [address] [address] May, Hypertriglyceridemia E78.1 ; 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 and Excessive daytime sleepiness G47.19 [place] [address] [address] May, History of DVT (deep vein thrombosis) Z8 6.718 ; Generalized anxiety disorder F41.1 ; Hypertriglyceridemia E78.1 ; 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 ; Subacromial bursitis of left shoulder joint M75.52 and Excessive daytime sleepiness G47.19 [place] [address] [address] May, [place] [address] [address] May, 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 [place] [address] [address] Apr, residential (current) use of anticoagulant s Z79.01 [place] [address] [address] Apr, 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 [place] [address] [address] Apr, residential (current) use of anticoagulant s Z79.01 [place] [address] [address] Apr, [place] [address] [address] Apr, residential (current) use of anticoagulant s Z79.01 [place] [address] [address] 13 Apr, 2017 residential (current) use of anticoagulant s Z79.01 [place] [address] [address] Apr, residential (current) use of anticoagulant s Z79.01 [place] [address] [address] Apr, 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 [place] [address] [address] 07 Apr, 2017 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 [facility] [address] [address] Apr, residential (current) use of anticoagulant s Z79.01 [facility] [address] [address] Mar, 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 [facility] [address] [address] Mar, [facility] [address] [address] Mar, residential (current) use of anticoagulant s Z79.01 [facility] [address] [id number] Jan, Dental examination Z01.20 [facility] [address] [id number] Jan, [facility] [address] [address] Jan, residential (current) use of anticoagulant s Z79.01 [place] [address] [address] Jan, History of DVT (deep vein thrombosis) Z8 6.718 [place] [address] [address] Jan, Generalized anxiety disorder F41.1 and P eripheral edema R60.9 [facility] [address] [address] Nov, History of DVT (deep vein thrombosis) Z8 6.718 [place] [address] [address] Nov, 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 [facility] [address] [facility] [id number] [address] [place] [address] 09 Nov, 2016 Acute non-recurrent maxillar y sinusitis J01.00 [place] [address] [address] Oct, residential (current) use of anticoagulant s Z79.01 [place] [address] [address] Oct, Personal history of venous thrombosis an d embolism Z86.718 [place] [address] [address] Sep, [place] [address] [address] Sep, Personal history of venous thrombosis an d embolism Z86.718 [place] [address] [address] Sep, 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 [place] [address] [address] Sep, residential (current) use of anticoagulant s Z79.01 [place] [address] [address] Sep, Generalized anxiety disorder F41.1 and H istory of DVT (deep vein thrombosis) Z86.718 [place] [address] [address] Aug, History of DVT (deep vein thrombosis) Z8 6.718 ; Generalized anxiety disorder F41.1 ; residential (current) use of anticoagulants Z79.01 ; Pelvic pain R10.2 ; Hypertriglyceridemia E78.1 ; Excessive daytime sleepiness G47.19 ; Colon cancer screening Z12.11 ; Screening for breast cancer Z12.39 ; Peripheral edema R60.9 and Gastroesophageal reflux disease, esophagitis presence not specified K21.9 [place] [address] [address] Aug, [place] [address] [address] July, [place] [address] [address] July, History of DVT (deep vein thrombosis) Z8 6.718 [place] [address] [address] Jun, Generalized anxiety disorder F41.1 [place] [address] [address] Jun, History of DVT (deep vein thrombosis) Z8 6.718 [place] [address] [address] Jun, History of DVT (deep vein thrombosis) Z8 6.718 [place] [address] [address] Jun, History of DVT (deep vein thrombosis) Z8 6.718 [place] [address] [address] Jun, History of DVT (deep vein thrombosis) Z8 6.718 [place] [address] [address] May, History of DVT (deep vein thrombosis) Z8 6.718 [place] [address] [address] May, residential (current) use of anticoagulant s Z79.01 [place] [address] [address] May, 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 [place] [address] [address] May, History of DVT (deep vein thrombosis) Z8 6.718 [facility] [address] [facility] [id number] [address] [place] [address] Apr, Bacterial conjunctivitis of left eye H10.9 and H/O motion sickness Z87.898 [place] [address] [address] Apr, History of DVT (deep vein thrombosis) Z8 6.718 [place] [id number] [address] 23 Apr, 2016 History of DVT (deep vein thrombosis) Z8 6.718 [facility] [address] [address] 15 Apr, 2016 History of DVT (deep vein thrombosis) Z8 6.718 [place] [address] [address] 14 Apr, 2016 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 [place] [address] [address] Mar, [place] [address] [address] Mar, residential (current) use of anticoagulant s Z79.01 [place] [address] [address] Mar, Hypertriglyceridemia E78.1 and 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 [place] [address] [address] Feb, 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 [place] [address] [address] Feb, residential (current) use of anticoagulant s Z79.01 [place] [address] [address] Feb, residential (current) use of anticoagulant s Z79.01 [place] [address] [address] Dec, [place] [address] [address] Nov, [place] [address] [address] Nov, History of DVT (deep vein thrombosis) Z8 6.718 ; Tremulousness R25.1 ; Generalized anxiety disorder F41.1 ; Peripheral edema R60.9 and Hypertriglyceridemia E78.1 [place] [address] [address] Oct, History of DVT (deep vein thrombosis) Z8 6.718 [place] [address] [address] Oct, [place] [address] [address] Sep, History of DVT (deep vein thrombosis) Z8 6.718 [place] [address] [address] Sep, 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 [place] [address] [address] July, [place] [address] [address] July, 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 [place] [address] [address] July, residential (current) use of anticoagulant s Z79.01 [place] [address] [address] Jun, residential (current) use of anticoagulant s Z79.01 [facility] [place] [id number] [place] [address] Jun, Coccyx pain M53.3 ; Encounte r for therapeutic drug level monitoring Z51.81 and 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 current use 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.01 [place] [address] [address] May, Abnormal mammogram R92.8 [facility] [place] [address] [place] [id number] [address] [place] [address] May, [facility] [address] [address] May, Acute vaginitis N76.0 and En counter for other screening for malignant neoplasm of breast Z12.39 [place] [address] [address] Apr, [place] [address] [address] Apr, [place] [address] [address] Apr, Peripheral edema R60.9 [place] [address] [address] Apr, 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 [place] [address] [address] Apr, Peripheral edema R60.9 and 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 (cu rrent) use of anticoagulants Z79.01 [place] [address] [address] Apr, 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 [place] [address] [address] Apr, [place] [address] [address] Apr, residential (current) use of anticoagulant s Z79.01 [place] [address] [address] Apr, Peripheral edema R60.9 [place] [address] [address] Mar, 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 [place] [address] [address] Mar, residential (current) use of anticoagulant s Z79.01 and Hypertriglyceridemia E78.1 [place] [address] [address] Mar, residential (current) use of anticoagulant s Z79.01 [place] [address] [address] Mar, 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 [place] [address] [address] Mar, [place] [address] [address] Mar, residential (current) use of anticoagulant s Z79.01 ; Hypertriglyceridemia E78.1 ; Personal history of venous thrombosis and embolism Z86.718 and Lump R22.9 [place] [address] [address] Mar, Personal history of venous thrombosis an d embolism Z86.718 [place] [address] [address] Mar, Personal history of venous thrombosis an d embolism Z86.718 [place] [address] [address] Mar, [place] [address] [address] Dec, Personal history of venous thrombosis an d embolism Z86.718 [place] [address] [address] Dec, Personal history of venous thrombosis an d embolism V12.51 [place] [address] [address] Nov, Personal history of venous thrombosis an d embolism V12.51 [place] [address] [address] 25 Nov, 2014 Personal history of venous thrombosis an d embolism V12.51 [place] [address] [address] 17 Nov, 2014 Personal history of venous thrombosis an d embolism V12.51 [place] [address] [address] Nov, Personal history of venous thrombosis an d embolism V12.51 [facility] [address] [address] Nov, [facility] [address] [address] Oct, Dysuria 788.1 [facility] [address] [address] Oct, Personal history of venous thrombosis an d embolism V12.51 [place] [address] [address] Oct, [place] [address] [address] Oct, Personal history of venous thrombosis an d embolism V12.51 [place] [address] [address] Sep, Personal history of venous thrombosis an d embolism V12.51 [place] [address] [address] Sep, Personal history of venous thrombosis an d embolism V12.51 [place] [address] [address] Aug, Personal history of venous thrombosis an d embolism V12.51 [place] [address] [address] Aug, Personal history of venous thrombosis an d embolism V12.51 [place] [address] [address] Aug, Personal history of venous thrombosis an d embolism V12.51 [place] [address] [address] July, Generalized anxiety disorder 300.02 ; Ab dominal pain, left lower quadrant 789.04 and Personal history of venous thrombosis and embolism V12.51 [place] [address] [place] [address] 14 Jun, 2014 [facility] [address] [facility] [id number] [facility] [place] [address] Jun, [facility] [address] [id number] [place] [address] May, [facility] [address] [id number] [place] [address] May, [facility] [address] [id number] [place] [address] May, [facility] [address] [id number] [place] [address] May, [facility] [address] [id number] [place] [address] May, [facility] [address] [id number] [place] [address] May, [facility] [address] [id number] [place] [address] May, [facility] [address] [id number] [place] [address] May, [facility] [address] [id number] [place] [address] Apr, [facility] [address] [id number] [place] [address] Apr, [facility] [address] [id number] [place] [address] Apr, [facility] [address] [id number] [place] [address] Apr, [facility] [address] [id number] [place] [address] Apr, [facility] [address] [id number] [place] [address] Mar, [facility] [address] [id number] [place] [address] Mar, [facility] [address] [id number] [place] [address] Mar, [facility] [address] [id number] [place] [address] Mar, [facility] [address] [id number] [place] [address] Mar, [facility] [address] [id number] [place] [address] Mar, [facility] [address] [id number] [place] [address] Feb, [facility] [address] [id number] [place] [address] Feb, [facility] [address] [id number] [place] [address] Feb, [facility] [address] [id number] [place] [address] Feb, [facility] [address] [id number] [place] [address] Feb, [facility] [address] [id number] [place] [address] Feb, [facility] [address] [id number] [place] [address] Feb, [facility] [address] [id number] [place] [address] Feb, [facility] [address] [id number] [place] [address] Feb, [facility] [address] [id number] [place] [address] Feb, [facility] [address] [id number] [place] [address] Jan, [facility] [address] [id number] [place] [address] Jan, [facility] [address] [id number] [place] [address] Jan, [facility] [address] [facility] [id number] [place] [address] Jan, [facility] [address] [id number] [place] [address] Jan, [facility] [address] [id number] [place] [address] Jan, [facility] [address] [id number] [place] [address] Jan, [facility] [address] [id number] [place] [address] Jan, [facility] [address] [id number] [place] [address] Jan, [facility] [address] [id number] [place] [address] Jan, [facility] [address] [id number] [place] [address] Dec, [facility] [address] [id number] [place] [address] Dec, [facility] [address] [id number] [place] [address] Dec, [facility] [address] [id number] [place] [address] Dec, [facility] [address] [id number] [place] [address] Dec, [facility] [address] [id number] [place] [address] Dec, [facility] [address] [id number] [place] [address] Dec, [facility] [address] [id number] [place] [address] Dec, [facility] [address] [id number] [place] [address] Dec, [facility] [address] [id number] [place] [address] 10 Dec, 2013 [facility] [address] [facility] [id number] [place] [address] Dec, 2013 [facility] [address] [facility] [id number] [place] [address] Dec, 2013 [facility] [place] [facility] [address] [id number] [place] [address] Dec, [facility] [place] [facility] [address] [id number] [place] [address] Dec, [facility] [place] [facility] [address] [facility] [id number] [place] [address] Dec, [facility] [place] [facility] [address] [id number] [place] [address] 30 Nov, 2013 [facility] [place] [facility] [address] [id number] [place] [address] 30 Nov, 2013 [facility] [place] [facility] [address] [id number] [place] [address] 26 Sep, 2013 [facility] [place] [facility] [address] [id number] [place] [address] 26 Sep, 2013 [facility] [place] [facility] [address] [id number] [place] [address] 24 Nov, 2013 [facility] [place] [facility] [address] [id number] [place] [address] 24 Sep, 2013 [facility] [place] [facility] [address] [id number] [place] [address] 23 Sep, 2013 [facility] [place] [facility] [address] [facility] [id number] [place] [address] 23 Sep, 2013 [facility] [place] [facility] [address] [id number] [place] [address] 18 Sep, 2013 [facility] [place] [facility] [address] [id number] [place] [address] 18 Sep, 2013 [facility] [place] [facility] [address] [id number] [place] [address] 17 Sep, 2013 [facility] [place] [facility] [address] [facility] [id number] [place] [address] 17 Nov, 2013 [facility] [place] [facility] [address] [facility] [id number] [place] [address] 11 Nov, 2013 [facility] [place] [facility] [address] [facility] [id number] [place] [address] 11 Nov, 2013 [facility] [place] [facility] [address] [facility] [id number] [facility] [place] [address] 10 Nov, 2013 [facility] [place] [facility] [address] [facility] [id number] [place] [address] 10 Nov, 2013 [facility] [place] [facility] [address] [id number] [place] [address] 08 Nov, 2013 [facility] [place] [facility] [address] [id number] [place] [address] 08 Nov, 2013 [facility] [place] [facility] [address] [id number] [place] [address] Sep, 2013 [facility] [place] [facility] [address] [id number] [place] [address] Sep, 2013 [facility] [place] [facility] [address] [id number] [place] [address] Sep, 2013 [facility] [place] [facility] [address] [id number] [place] [address] Sep, 2013 [facility] [place] [facility] [address] [id number] [place] [address] Sep, 2013 [facility] [place] [facility] [address] [id number] [place] [address] Sep, 2013 [facility] [place] [facility] [address] [facility] [id number] [place] [address] Aug, [facility] [place] [facility] [address] [id number] [place] [address] Aug, [facility] [place] [facility] [address] [id number] [place] [address] Aug, [facility] [place] [facility] [address] [id number] [place] [address] Aug, [facility] [place] [facility] [address] [facility] [id number] [facility] [place] [address] 24 Aug, 2013 [facility] [place] [facility] [address] [facility] [id number] [facility] [place] [address] Aug, [facility] [place] [facility] [address] [id number] [facility] [place] [address] Aug, [facility] [place] [facility] [address] [id number] [facility] [place] [address] Aug, [facility] [place] [facility] [address] [facility] [id number] [facility] [place] [address] Aug, [facility] [place] [facility] [address] [id number] [place] [address] Aug, [facility] [place] [facility] [address] [id number] [place] [address] Aug, [facility] [place] [facility] [address] [id number] [place] [address] July, [facility] [place] [facility] [address] [id number] [place] [address] July, [facility] [place] [facility] [address] [id number] [place] [address] Jun, [facility] [place] [facility] [address] [id number] [place] [address] Jun, [facility] [place] [facility] [address] [id number] [place] [address] Jun, [facility] [place] [facility] [address] [id number] [place] [address] Jun, [facility] [place] [facility] [address] [id number] [place] [address] Jun, [facility] [place] [facility] [address] [id number] [place] [address] Jun, [facility] [place] [facility] [address] [id number] [place] [address] 15 Jun, 2013 [facility] [place] [facility] [address] [id number] [facility] [place] [address] 15 Jun, 2013 [facility] [place] [facility] [address] [facility] [id number] [place] [address] 11 Jun, 2013 [facility] [place] [facility] [address] [facility] [id number] [place] [address] 11 Jun, 2013 [facility] [place] [facility] [address] [id number] [place] [address] 10 Jun, 2013 [facility] [place] [facility] [address] [facility] [id number] [place] [address] 10 Jun, 2013 [facility] [place] [facility] [address] [facility] [id number] [place] [address] 25 May, 2013 [facility] [place] [facility] [address] [id number] [place] [address] May, [facility] [place] [facility] [address] [id number] [place] [address] May, [facility] [place] [facility] [address] [id number] [place] [address] May, [facility] [place] [facility] [address] [id number] [place] [address] May, [facility] [place] [facility] [address] [id number] [place] [address] May, [facility] [place] [facility] [address] [id number] [place] [address] May, [facility] [place] [facility] [address] [id number] [place] [address] May, [facility] [place] [facility] [address] [facility] [id number] [place] [address] May, [facility] [place] [facility] [address] [id number] [place] [address] May, [facility] [place] [facility] [address] [id number] [place] [address] May, [facility] [place] [facility] [address] [id number] [place] [address] May, [facility] [place] [facility] [address] [id number] [place] [address] Apr, [facility] [place] [facility] [address] [id number] [place] [address] Apr, [facility] [place] [facility] [address] [id number] [place] [address] Apr, [facility] [place] [facility] [address] [id number] [place] [address] Apr, [facility] [place] [facility] [address] [id number] [place] [address] Apr, [facility] [place] [facility] [address] [id number] [place] [address] Apr, [facility] [place] [facility] [address] [id number] [place] [address] Apr, [facility] [place] [facility] [address] [id number] [place] [address] Apr, [facility] [place] [facility] [address] [id number] [place] [address] Apr, [facility] [place] [facility] [address] [id number] [place] [address] Apr, [facility] [place] [facility] [address] [id number] [place] [address] Apr, [facility] [place] [facility] [address] [id number] [place] [address] Apr, [facility] [place] [facility] [address] [id number] [place] [address] Apr, [facility] [place] [facility] [address] [id number] [place] [address] Apr, [facility] [place] [facility] [address] [id number] [place] [address] Apr, [facility] [place] [facility] [address] [id number] [place] [address] Apr, [facility] [place] [facility] [address] [id number] [place] [address] Apr, [facility] [place] [facility] [address] [id number] [place] [address] Jan, [facility] [place] [facility] [address] [id number] [place] [address] Jan, [facility] [place] [facility] [address] [id number] [place] [address] 08 Jan, 2013 [facility] [place] [facility] [address] [id number] [place] [address] Jan, [facility] [place] [facility] [address] [id number] [place] [address] Jan, [facility] [place] [facility] [address] [id number] [place] [address] Jan, [facility] [place] [facility] [address] [id number] [place] [address] Jan, [facility] [place] [facility] [address] [id number] [place] [address] Dec, [facility] [place] [facility] [address] [id number] [place] [address] Dec, [facility] [place] [facility] [address] [id number] [place] [address] 08 Dec, 2012 [facility] [place] [facility] [address] [id number] [place] [address] 10 Nov, 2012 [facility] [place] [facility] [address] [id number] [place] [address] 10 Nov, 2012 [facility] [place] [facility] [address] [id number] [place] [address] 05 Nov, 2012 [facility] [place] [facility] [address] [id number] [place] [address] 04 Nov, 2012 [facility] [place] [facility] [address] [id number] [place] [address] Oct, [facility] [place] [facility] [address] [id number] [place] [address] Oct, [facility] [place] [facility] [address] [id number] [facility] [place] [address] Oct, [facility] [place] [facility] [address] [facility] [id number] [facility] [place] [address] Oct, [facility] [place] [facility] [address] [id number] [facility] [place] [address] Oct, [facility] [place] [facility] [address] [id number] [facility] [place] [address] Sep, [facility] [place] [facility] [address] [facility] [id number] [place] [address] Sep, [facility] [place] [facility] [address] [id number] [place] [address] Sep, [facility] [place] [facility] [address] [id number] [place] [address] Sep, [facility] [place] [facility] [address] [id number] [facility] [place] [address] Sep, [facility] [place] [facility] [address] [id number] [facility] [place] [address] Sep, [facility] [place] [facility] [address] [id number] [facility] [place] [address] Sep, [facility] [place] [facility] [address] [id number] [place] [address] Aug, [facility] [place] [facility] [address] [id number] [place] [address] Aug, [facility] [place] [facility] [address] [id number] [facility] [place] [address] July, [facility] [place] [facility] [address] [id number] [place] [address] Jun, [facility] [place] [facility] [address] [id number] [place] [address] Jun, [facility] [place] [facility] [address] [id number] [place] [address] Jun, [facility] [place] [facility] [address] [id number] [place] [address] Apr, [facility] [place] [facility] [address] [id number] [place] [address] Apr, [facility] [place] [facility] [address] [id number] [place] [address] Apr, [facility] [place] [facility] [address] [id number] [place] [address] Mar, [facility] [place] [facility] [address] [id number] [place] [address] Mar, [facility] [place] [facility] [address] [id number] [place] [address] Mar, [facility] [place] [facility] [address] [id number] [place] [address] Mar, [facility] [place] [facility] [address] [id number] [place] [address] Mar, [facility] [place] [facility] [address] [id number] [place] [address] 14 Feb, 2012 [facility] [place] [facility] [address] [id number] [place] [address] 14 Feb, 2012 [facility] [place] [facility] [address] [id number] [place] [address] Jan, [facility] [place] [facility] [address] [id number] [place] [address] Jan, [facility] [place] [facility] [address] [id number] [place] [address] Jan, [facility] [place] [facility] [address] [id number] [place] [address] 13 Jan, 2012 [facility] [place] [facility] [address] [id number] [place] [address] Jan, [facility] [place] [facility] [address] [id number] [place] [address] 07 Jan, 2012 [facility] [place] [facility] [address] [id number] [place] [address] Jan, [facility] [place] [facility] [address] [id number] [place] [address] Dec, [facility] [place] [facility] [address] [id number] [place] [address] Dec, [facility] [place] [facility] [address] [id number] [place] [address] Dec, [facility] [place] [facility] [address] [id number] [place] [address] Dec, [facility] [place] [facility] [address] [id number] [place] [address] Dec, [facility] [place] [facility] [address] [id number] [place] [address] Dec, [facility] [place] [facility] [address] [id number] [place] [address] Dec, [facility] [place] [facility] [address] [id number] [place] [address] Dec, [facility] [place] [facility] [address] [id number] [place] [address] Dec, [facility] [place] [facility] [address] [id number] [place] [address] Dec, [facility] [place] [facility] [address] [id number] [place] [address] Oct, [facility] [place] [facility] [address] [id number] [place] [address] Oct, [facility] [place] [facility] [address] [id number] [place] [address] Aug, [facility] [place] [facility] [address] [id number] [place] [address] Aug, [facility] [place] [facility] [address] [id number] [place] [address] July, [facility] [place] [facility] [address] [id number] [place] [address] Jun, [facility] [place] [facility] [address] [id number] [place] [address] Jun, [facility] [place] [facility] [address] [id number] [place] [address] May, [facility] [place] [facility] [address] [id number] [place] [address] Apr, [facility] [place] [facility] [address] [id number] [place] [address] Apr, [facility] [place] [facility] [address] [id number] [place] [address] Mar, [facility] [place] [facility] [address] [id number] [place] [address] Mar, [facility] [place] [facility] [address] [id number] [place] [address] Feb, [facility] [place] [facility] [address] [id number] [place] [address] 15 Feb, 2011 [facility] [place] [facility] [id number] [place] [address] Feb, [facility] [place] [facility] [address] [id number] [place] [address] Feb, [facility] [place] [facility] [address] [id number] [place] [address] Jan, [facility] [place] [facility] [address] [id number] [place] [address] 17 Dec, 2010 [facility] [place] [facility] [id number] [place] [address] 08 Feb, 2010 [facility] [place] [facility] [address] [id number] [place] [address] Feb, [facility] [place] [facility] [address] [id number] [place] [address] Feb, [facility] [place] [facility] [address] [id number] [place] [address] Feb, [facility] [place] [facility] [address] [id number] [place] [address] 15 Dec, 2009 [facility] [place] [facility] [address] [id number] [place] [address] 15 Dec, 2009 [facility] [address] [id number] [place] [address] Oct, [facility] [address] [id number] [place] [address] Jun, [facility] [address] [id number] [place] [address] Feb, [facility] [address] [id number] [place] [address] Feb, [facility] [address] [id number] [place] [address] Feb, [facility] [address] [id number] [place] [address] Dec, IMMUNIZATIONS No Known Immunizations SOCIAL HISTORY Never Assessed REASON FOR VISIT PLAN OF CARE VITAL SIGNS Height 64 in 2013-07-15 Weight 199 lbs 2013-07-15 Temperature 98.6 degrees Fahrenheit 2013-07-15 Heart Rate 84 bpm 2013-07-15 Respiratory Rate 18 2013-07-15 Blood pressure systolic 116 mmHg 2013-07-15 Blood pressure diastolic 78 mmHg 2013-07-15 MEDICATIONS Unknown Medications RESULTS No Results PROCEDURES No Known procedures INSTRUCTIONS MEDICATIONS ADMINISTERED No Known Medications MEDICAL (GENERAL) HISTORY Type Description Date Medical History obesity Medical History Hematologic disorder factor clotting pro [place] Medical History DVT's Medical History Torn Rotator Cuff, repaired 09/23/17 Surgical History Lap Band 10/2012 Surgical History section 1985, 1987 Surgical History cholecystectomy Surgical History [place] Filter 06/2009 Surgical History Left leg [...]
--- OUTSIDE RECORDS SUMMARY | 2019-10-19 12:54 | XMS REPORT ---
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 Active 868268857 Problem Pelvic pain R10.2 Active 45420179 Problem Peripheral edema R60.9 Active 271 828747 Problem Moderate episode of recurrent major depressive disorder F33.1 Active 201830439 Problem Presence of IVC filter Z95.828 Active 375766277 Problem Vitamin D deficiency E55.9 Active 28541670 Problem Generalized anxiety disorder F41.1 A ctive 009291513 Problem Excessive daytime sleepiness G47.19 A ctive 080751068234 Problem Gastroesophageal reflux disease, esophagitis pre sence not specified K21.9 Active 128174411 Problem Thyroid nodule E04.1 Active 77328 5005 Problem Morbid obesity E66.01 Active 33555 6002 ALLERGIES No Information ENCOUNTERS Encounter Location Date Diagnosis [facility] [address] [id number] [place] [address] Apr, [facility] [address] [id number] [place] [address] Mar, [facility] [address] [id number] [place] [address] Jan, [facility] [address] [id number] [place] [address] Jan, [place] [address] [address] Dec, Encounter for weight management Z76.89 [place] [address] [address] Dec, Encounter for weight management Z76.89 a nd Screening mammogram, encounter for Z12.31 [place] [address] [address] Nov, Encounter for weight management Z76.89 [place] [address] [address] Nov, Thyroid nodule E04.1 [place] [address] [address] Nov, Thyroid nodule E04.1 [place] [address] [address] Nov, Thyroid nodule E04.1 [place] [address] [address] Oct, Syncope, unspecified syncope type R55 an d Encounter for weight management Z76.89 [place] [address] [address] Oct, Morbid obesity E66.01 [place] [address] [address] Oct, Hypertriglyceridemia E78.1 [place] [address] [address] Oct, [place] [address] [address] Oct, Hypertriglyceridemia E78.1 [place] [address] [address] Sep, Hypertriglyceridemia E78.1 and Vitamin D deficiency E55.9 [place] [address] [address] Sep, [facility] [address] [address] Sep, Morbid obesity E66.01 ; Moderate episode of recurrent major depressive disorder F33.1 ; Hypertriglyceridemia E78.1 and Vitamin D deficiency E55.9 [place] [address] [address] Aug, [facility] [address] [address] July, [facility] [address] [address] July, [place] [address] [address] Jun, [place] [address] [address] Jun, [place] [address] [address] Jun, Closed compression fracture of L3 lumbar vertebra with routine healing, subsequent encounter S32.030D and Drug-induced constipation K59.03 [place] [address] [address] Jun, [place] [address] [address] Jun, [place] [address] [address] Apr, [place] [address] [address] Apr, Morbid obesity E66.01 [place] [address] [address] Apr, Morbid obesity E66.01 ; Hypertriglycerid emia E78.1 ; Gastroesophageal reflux disease, esophagitis presence not specified K21.9 and Joint pain M25.50 [place] [address] [address] Feb, [place] [address] [id number] [place] [address] Feb, [facility] [address] [facility] [id number] [place] [address] Jan, Acute bacterial conjunctivit is H10.30 [facility] [address] [place] [id number] [place] [address] 08 Dec, 2017 [facility] [address] [address] 04 Dec, 2017 [facility] [address] [place] [id number] [place] [address] 17 Nov, 2017 [place] [address] [address] 07 Nov, 2017 Obstructive sleep apnea G47.33 ; Morbid obesity E66.01 and Gastroesophageal reflux disease, esophagitis presence not specified K21.9 [facility] [address] [facility] [place] [address] 06 Nov, 2017 Encounter for examination of eyes and vi ray without abnormal findings Z01.00 [facility] [address] [place] [id number] [place] [address] 31 Oct, 2017 Thyroid nodule E04.1 and Screening for b reast cancer Z12.31 [facility] [address] [facility] [place] [address] 23 Oct, 2017 History of DVT (deep vein thrombosis) Z8 6.718 ; Thyroid nodule E04.1 and Gastroesophageal reflux disease, esophagitis presence not specified K21.9 [facility] [address] [place] [id number] [place] [address] Oct, [facility] [address] [address] Sep, [facility] [address] [address] Aug, [facility] [address] [address] Aug, [facility] [address] [address] Aug, Acute pain of left shoulder M25.512 and Thyroid nodule E04.1 [place] [address] [address] July, Superior glenoid labrum lesion of left mehdi roy, subsequent encounter S43.432D [place] [address] [address] Jun, History of DVT (deep vein thrombosis) Z8 6.718 [place] [address] [address] Jun, History of DVT (deep vein thrombosis) Z8 6.718 [place] [address] [address] Jun, Impingement syndrome, shoulder, left M75 .42 [place] [address] [address] May, Subacromial bursitis of left shoulder saurabh int M75.52 [place] [address] [address] May, [place] [address] [address] May, Hypertriglyceridemia E78.1 ; prison ( current) use of anticoagulants Z79.01 and Excessive daytime sleepiness G47.19 [place] [address] [address] May, History of DVT (deep vein thrombosis) Z8 6.718 ; Generalized anxiety disorder F41.1 ; Hypertriglyceridemia E78.1 ; superintendent terminal (current) use of anticoagulants Z79.01 ; Subacromial bursitis of left shoulder joint M75.52 and Excessive daytime sleepiness G47.19 [place] [address] [address] May, [place] [address] [address] May, prison (current) use of anticoagulant s Z79.01 [facility] [address] [address] Apr, prison (current) use of anticoagulant s Z79.01 [facility] [address] [address] Apr, prison (current) use of anticoagulant s Z79.01 [place] [address] [address] Apr, superintendent terminal (current) use of anticoagulant s Z79.01 [place] [address] [address] Apr, [place] [address] [address] Apr, prison (current) use of anticoagulant s Z79.01 [place] [address] [address] 13 Apr, 2017 prison (current) use of anticoagulant s Z79.01 [place] [address] [address] Apr, prison (current) use of anticoagulant s Z79.01 [place] [address] [address] Apr, superintendent terminal (current) use of anticoagulant s Z79.01 [place] [address] [address] 07 Apr, 2017 prison (current) use of anticoagulant s Z79.01 [place] [address] [address] Apr, prison (current) use of anticoagulant s Z79.01 [place] [address] [address] Mar, prison (current) use of anticoagulant s Z79.01 [place] [address] [address] Mar, [facility] [address] [address] Mar, prison (current) use of anticoagulant s Z79.01 [facility] [address] [id number] Jan, Dental examination Z01.20 [facility] [address] [id number] Jan, [facility] [address] [address] Jan, superintendent terminal (current) use of anticoagulant s Z79.01 [place] [address] [address] Jan, History of DVT (deep vein thrombosis) Z8 6.718 [place] [address] [address] Jan, Generalized anxiety disorder F41.1 and P eripheral edema R60.9 [facility] [address] [address] Nov, History of DVT (deep vein thrombosis) Z8 6.718 [place] [address] [address] Nov, superintendent terminal (current) use of anticoagulant s Z79.01 [facility] [address] [facility] [id number] [address] [place] [address] Nov, Acute non-recurrent maxillar y sinusitis J01.00 [facility] [address] [address] Oct, superintendent terminal (current) use of anticoagulant s Z79.01 [facility] [address] [address] Oct, Personal history of venous thrombosis an d embolism Z86.718 [place] [address] [address] Sep, [place] [address] [address] Sep, Personal history of venous thrombosis an d embolism Z86.718 [place] [address] [address] Sep, prison (current) use of anticoagulant s Z79.01 [place] [address] [address] Sep, prison (current) use of anticoagulant s Z79.01 [place] [address] [address] Sep, Generalized anxiety disorder F41.1 and H istory of DVT (deep vein thrombosis) Z86.718 [place] [address] [address] Aug, History of DVT (deep vein thrombosis) Z8 6.718 ; Generalized anxiety disorder F41.1 ; superintendent terminal (current) use of anticoagulants Z79.01 ; Pelvic pain R10.2 ; Hypertriglyceridemia E78.1 ; Excessive daytime sleepiness G47.19 ; Colon cancer screening Z12.11 ; Screening for breast cancer Z12.39 ; Peripheral edema R60.9 and Gastroesophageal reflux disease, esophagitis presence not specified K21.9 [place] [address] [address] Aug, [place] [address] [address] July, [place] [address] [address] July, History of DVT (deep vein thrombosis) Z8 6.718 [place] [address] [address] Jun, Generalized anxiety disorder F41.1 [place] [address] [address] Jun, History of DVT (deep vein thrombosis) Z8 6.718 [place] [address] [place] [id number] [place] [address] Jun, History of DVT (deep vein thrombosis) Z8 6.718 [facility] [address] [address] Jun, History of DVT (deep vein thrombosis) Z8 6.718 [facility] [address] [place] [id number] [place] [address] Jun, History of DVT (deep vein thrombosis) Z8 6.718 [facility] [address] [address] May, History of DVT (deep vein thrombosis) Z8 6.718 [place] [address] [address] May, prison (current) use of anticoagulant s Z79.01 [place] [address] [address] May, superintendent terminal (current) use of anticoagulant s Z79.01 [place] [address] [address] May, History of DVT (deep vein thrombosis) Z8 6.718 [facility] [address] [facility] [id number] [address] [place] [address] Apr, Bacterial conjunctivitis of left eye H10.9 and H/O motion sickness Z87.898 [facility] [address] [address] Apr, History of DVT (deep vein thrombosis) Z8 6.718 [facility] [address] [address] Apr, History of DVT (deep vein thrombosis) Z8 6.718 [facility] [address] [address] Apr, History of DVT (deep vein thrombosis) Z8 6.718 [facility] [address] [address] 14 Apr, 2016 prison (current) use of anticoagulant s Z79.01 [place] [address] [address] Mar, [place] [address] [address] Mar, prison (current) use of anticoagulant s Z79.01 [place] [address] [address] Mar, Hypertriglyceridemia E78.1 and superintendent terminal (current) use of anticoagulants Z79.01 [place] [address] [address] Feb, superintendent terminal (current) use of anticoagulant s Z79.01 [place] [address] [address] Feb, prison (current) use of anticoagulant s Z79.01 [place] [address] [address] Feb, prison (current) use of anticoagulant s Z79.01 [place] [address] [address] Dec, [place] [address] [address] Nov, [place] [address] [address] Nov, History of DVT (deep vein thrombosis) Z8 6.718 ; Tremulousness R25.1 ; Generalized anxiety disorder F41.1 ; Peripheral edema R60.9 and Hypertriglyceridemia E78.1 [place] [address] [address] Oct, History of DVT (deep vein thrombosis) Z8 6.718 [place] [address] [address] Oct, [place] [address] [address] Sep, History of DVT (deep vein thrombosis) Z8 6.718 [place] [address] [address] Sep, superintendent terminal (current) use of anticoagulant s Z79.01 [place] [address] [address] July, [place] [address] [address] July, prison (current) use of anticoagulant s Z79.01 [place] [address] [address] July, prison (current) use of anticoagulant s Z79.01 [place] [address] [address] Jun, superintendent terminal (current) use of anticoagulant s Z79.01 [facility] [place] [address] [place] [address] Jun, Coccyx pain M53.3 ; Encounte r for therapeutic drug level monitoring Z51.81 and superintendent terminal current use 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.01 [place] [address] [address] May, Abnormal mammogram R92.8 [facility] [address] [place] [address] May, [facility] [address] [place] [address] May, Acute vaginitis N76.0 and En counter for other screening for malignant neoplasm of breast Z12.39 [place] [address] [address] Apr, [place] [address] [address] Apr, [place] [address] [address] Apr, Peripheral edema R60.9 [place] [address] [address] Apr, superintendent terminal (current) use of anticoagulant s Z79.01 [place] [address] [address] Apr, Peripheral edema R60.9 and superintendent terminal (cu rrent) use of anticoagulants Z79.01 [place] [address] [address] Apr, superintendent terminal (current) use of anticoagulant s Z79.01 [place] [address] [address] Apr, [place] [address] [address] Apr, prison (current) use of anticoagulant s Z79.01 [place] [address] [address] Apr, Peripheral edema R60.9 [place] [address] [address] Mar, prison (current) use of anticoagulant s Z79.01 [place] [address] [address] Mar, superintendent terminal (current) use of anticoagulant s Z79.01 and Hypertriglyceridemia E78.1 [place] [address] [address] Mar, superintendent terminal (current) use of anticoagulant s Z79.01 [place] [address] [address] Mar, superintendent terminal (current) use of anticoagulant s Z79.01 [place] [address] [address] Mar, [place] [address] [address] Mar, prison (current) use of anticoagulant s Z79.01 ; Hypertriglyceridemia E78.1 ; Personal history of venous thrombosis and embolism Z86.718 and Lump R22.9 [place] [address] [address] Mar, Personal history of venous thrombosis an d embolism Z86.718 [place] [address] [address] Mar, Personal history of venous thrombosis an d embolism Z86.718 [place] [address] [address] Mar, [place] [address] [address] Dec, Personal history of venous thrombosis an d embolism Z86.718 [place] [address] [address] Dec, Personal history of venous thrombosis an d embolism V12.51 [place] [address] [address] Nov, Personal history of venous thrombosis an d embolism V12.51 [place] [address] [address] Nov, Personal history of venous thrombosis an d embolism V12.51 [place] [address] [address] 17 Nov, 2014 Personal history of venous thrombosis an d embolism V12.51 [place] [address] [address] Nov, Personal history of venous thrombosis an d embolism V12.51 [place] [address] [address] Nov, [place] [address] [address] Oct, Dysuria 788.1 [place] [address] [address] Oct, Personal history of venous thrombosis an d embolism V12.51 [facility] [address] [address] Oct, [facility] [address] [address] Oct, Personal history of venous thrombosis an d embolism V12.51 [facility] [address] [address] Sep, Personal history of venous thrombosis an d embolism V12.51 [facility] [address] [address] Sep, Personal history of venous thrombosis an d embolism V12.51 [facility] [address] [address] Aug, Personal history of venous thrombosis an d embolism V12.51 [facility] [address] [address] Aug, Personal history of venous thrombosis an d embolism V12.51 [facility] [address] [address] Aug, Personal history of venous thrombosis an d embolism V12.51 [facility] [address] [address] July, Generalized anxiety disorder 300.02 ; Ab dominal pain, left lower quadrant 789.04 and Personal history of venous thrombosis and embolism V12.51 [facility] [address] [address] Jun, [facility] [address] [address] Jun, [facility] [address] [address] May, [facility] [address] [address] May, [facility] [address] [id number] [place] [address] May, [facility] [address] [id number] [place] [address] May, [facility] [address] [id number] [place] [address] May, [facility] [address] [id number] [place] [address] May, [facility] [address] [id number] [place] [address] May, [facility] [address] [id number] [place] [address] May, [facility] [address] [id number] [place] [address] Apr, [facility] [address] [id number] [place] [address] Apr, [facility] [address] [id number] [place] [address] Apr, [facility] [address] [id number] [place] [address] Apr, [facility] [address] [id number] [place] [address] Apr, [facility] [address] [id number] [place] [address] Mar, [facility] [address] [id number] [place] [address] Mar, [facility] [address] [id number] [place] [address] Mar, [facility] [address] [id number] [place] [address] Mar, [facility] [address] [id number] [place] [address] Mar, [facility] [address] [id number] [place] [address] Mar, [facility] [address] [facility] [id number] [place] [address] Feb, [facility] [address] [id number] [place] [address] Feb, [facility] [address] [id number] [place] [address] Feb, [facility] [address] [id number] [place] [address] Feb, [facility] [address] [id number] [place] [address] Feb, [facility] [address] [id number] [place] [address] Feb, [facility] [address] [id number] [place] [address] Feb, [facility] [address] [id number] [place] [address] Feb, [facility] [address] [id number] [place] [address] Feb, [facility] [address] [id number] [place] [address] Feb, [facility] [address] [id number] [place] [address] Jan, [facility] [address] [id number] [place] [address] Jan, [facility] [address] [id number] [place] [address] Jan, [facility] [address] [id number] [place] [address] Jan, [facility] [address] [id number] [place] [address] Jan, [facility] [address] [id number] [place] [address] Jan, [facility] [address] [facility] [id number] [place] [address] Jan, [facility] [address] [id number] [place] [address] Jan, [facility] [address] [id number] [place] [address] Jan, [facility] [address] [id number] [place] [address] Jan, [facility] [address] [id number] [place] [address] Dec, [facility] [address] [id number] [place] [address] Dec, [facility] [address] [id number] [place] [address] Dec, [facility] [address] [id number] [place] [address] Dec, [facility] [address] [id number] [place] [address] Dec, [facility] [address] [id number] [place] [address] Dec, [facility] [address] [id number] [place] [address] Dec, [facility] [address] [id number] [place] [address] Dec, [facility] [address] [id number] [place] [address] Dec, [facility] [address] [id number] [place] [address] Dec, [facility] [address] [id number] [place] [address] Dec, [facility] [address] [id number] [place] [address] Dec, [facility] [place] [facility] [address] [id number] [place] [address] Dec, [facility] [place] [facility] [address] [facility] [id number] [place] [address] Dec, [facility] [place] [facility] [address] [facility] [id number] [place] [address] Dec, [facility] [place] [facility] [address] [id number] [place] [address] 30 Nov, 2013 [facility] [place] [facility] [address] [id number] [place] [address] 30 Sep, 2013 [facility] [place] [facility] [address] [facility] [id number] [place] [address] 26 Nov, 2013 [facility] [place] [facility] [address] [id number] [place] [address] 26 Nov, 2013 [facility] [place] [facility] [address] [id number] [place] [address] 24 Nov, 2013 [facility] [place] [facility] [address] [id number] [place] [address] 24 Nov, 2013 [facility] [place] [facility] [address] [id number] [place] [address] 23 Sep, 2013 [facility] [place] [facility] [address] [id number] [place] [address] 23 Nov, 2013 [facility] [place] [facility] [address] [id number] [place] [address] 18 Sep, 2013 [facility] [place] [facility] [address] [id number] [place] [address] 18 Nov, 2013 [facility] [place] [facility] [address] [id number] [place] [address] 17 Sep, 2013 [facility] [place] [facility] [address] [id number] [place] [address] 17 Sep, 2013 [facility] [place] [facility] [address] [id number] [place] [address] 11 Nov, 2013 [facility] [place] [facility] [address] [id number] [place] [address] 11 Nov, 2013 [facility] [place] [facility] [address] [id number] [place] [address] 10 Nov, 2013 [facility] [place] [facility] [address] [facility] [id number] [facility] [place] [address] 10 Nov, 2013 [facility] [place] [facility] [address] [facility] [id number] [facility] [place] [address] 08 Nov, 2013 [facility] [place] [facility] [address] [id number] [place] [address] 08 Nov, 2013 [facility] [place] [facility] [address] [facility] [id number] [facility] [place] [address] Sep, [facility] [place] [facility] [address] [facility] [id number] [facility] [place] [address] Sep, [facility] [place] [facility] [address] [id number] [place] [address] Sep, [facility] [place] [facility] [address] [id number] [place] [address] Sep, [facility] [place] [facility] [address] [id number] [place] [address] Sep, [facility] [place] [facility] [address] [facility] [id number] [place] [address] Sep, [facility] [place] [facility] [address] [id number] [place] [address] Aug, [facility] [place] [facility] [address] [id number] [place] [address] Aug, [facility] [place] [facility] [address] [id number] [place] [address] Aug, [facility] [place] [facility] [address] [facility] [id number] [place] [address] Aug, [facility] [place] [facility] [address] [id number] [place] [address] 24 Aug, 2013 [facility] [place] [facility] [address] [facility] [id number] [place] [address] Aug, [facility] [place] [facility] [address] [id number] [place] [address] Aug, [facility] [place] [facility] [address] [id number] [place] [address] Aug, [facility] [place] [facility] [address] [id number] [place] [address] Aug, [facility] [place] [facility] [address] [id number] [place] [address] Aug, [facility] [place] [facility] [address] [id number] [place] [address] Aug, [facility] [place] [facility] [address] [id number] [place] [address] July, [facility] [place] [facility] [address] [id number] [place] [address] July, [facility] [place] [facility] [address] [id number] [place] [address] Jun, [facility] [place] [facility] [address] [id number] [place] [address] Jun, [facility] [place] [facility] [address] [id number] [place] [address] Jun, [facility] [place] [facility] [address] [id number] [place] [address] Jun, [facility] [place] [facility] [address] [id number] [place] [address] Jun, [facility] [place] [facility] [address] [id number] [place] [address] Jun, [facility] [place] [facility] [address] [id number] [place] [address] 15 Jun, 2013 [facility] [place] [facility] [address] [id number] [place] [address] 15 Jun, 2013 [facility] [place] [facility] [address] [id number] [place] [address] Jun, [facility] [place] [facility] [address] [id number] [place] [address] Jun, [facility] [place] [facility] [address] [id number] [place] [address] Jun, [facility] [place] [facility] [address] [facility] [id number] [place] [address] Jun, [facility] [place] [facility] [address] [facility] [id number] [facility] [place] [address] May, [facility] [place] [facility] [address] [id number] [place] [address] May, [facility] [place] [facility] [address] [id number] [place] [address] May, [facility] [place] [facility] [address] [facility] [id number] [place] [address] May, [facility] [place] [facility] [address] [id number] [place] [address] May, [facility] [place] [facility] [address] [id number] [place] [address] May, [facility] [place] [facility] [address] [id number] [place] [address] May, [facility] [place] [facility] [address] [id number] [place] [address] May, [facility] [place] [facility] [address] [id number] [place] [address] May, [facility] [place] [facility] [address] [id number] [place] [address] May, [facility] [place] [facility] [address] [id number] [place] [address] May, [facility] [place] [facility] [address] [id number] [place] [address] May, [facility] [place] [facility] [address] [id number] [place] [address] Apr, [facility] [place] [facility] [address] [id number] [place] [address] Apr, [facility] [place] [facility] [address] [id number] [place] [address] Apr, [facility] [place] [facility] [address] [id number] [place] [address] Apr, [facility] [place] [facility] [address] [facility] [id number] [place] [address] Apr, [facility] [place] [facility] [address] [id number] [place] [address] Apr, [facility] [place] [facility] [address] [id number] [place] [address] Apr, [facility] [place] [facility] [address] [id number] [place] [address] Apr, [facility] [place] [facility] [address] [id number] [place] [address] Apr, [facility] [place] [facility] [address] [id number] [place] [address] Apr, [facility] [place] [facility] [address] [id number] [place] [address] Apr, [facility] [place] [facility] [address] [id number] [place] [address] Apr, [facility] [place] [facility] [address] [id number] [place] [address] Apr, [facility] [place] [facility] [address] [id number] [place] [address] Apr, [facility] [place] [facility] [address] [id number] [place] [address] Apr, [facility] [place] [facility] [address] [id number] [place] [address] Apr, [facility] [place] [facility] [address] [id number] [place] [address] Apr, [facility] [place] [facility] [address] [id number] [place] [address] Jan, [facility] [place] [facility] [address] [id number] [place] [address] Jan, [facility] [place] [facility] [address] [id number] [place] [address] 08 Jan, 2013 [facility] [place] [facility] [address] [id number] [place] [address] Jan, [facility] [place] [facility] [address] [id number] [place] [address] Jan, [facility] [place] [facility] [address] [id number] [place] [address] Jan, [facility] [place] [facility] [address] [id number] [place] [address] Jan, [facility] [place] [facility] [address] [id number] [place] [address] Dec, [facility] [place] [facility] [address] [id number] [place] [address] Dec, [facility] [place] [facility] [address] [id number] [place] [address] Dec, [facility] [place] [facility] [address] [id number] [place] [address] Nov, [facility] [place] [facility] [address] [id number] [place] [address] Nov, [facility] [place] [facility] [address] [id number] [place] [address] Nov, [facility] [place] [facility] [address] [id number] [place] [address] Nov, [facility] [place] [facility] [address] [id number] [place] [address] Oct, [facility] [place] [facility] [address] [id number] [place] [address] Oct, [facility] [place] [facility] [address] [id number] [place] [address] Oct, [facility] [place] [facility] [address] [id number] [place] [address] Oct, [facility] [place] [facility] [address] [id number] [place] [address] Oct, [facility] [place] [facility] [address] [id number] [facility] [place] [address] Sep, [facility] [place] [facility] [address] [id number] [facility] [place] [address] Sep, [facility] [place] [facility] [address] [facility] [id number] [facility] [place] [address] Sep, [facility] [place] [facility] [address] [id number] [facility] [place] [address] Sep, [facility] [place] [facility] [address] [facility] [id number] [facility] [place] [address] Sep, [facility] [place] [facility] [address] [id number] [facility] [place] [address] Sep, [facility] [place] [facility] [address] [id number] [place] [address] Sep, [facility] [place] [facility] [address] [id number] [place] [address] Aug, [facility] [place] [facility] [address] [id number] [place] [address] Aug, [facility] [place] [facility] [address] [id number] [facility] [place] [address] July, [facility] [place] [facility] [address] [id number] [place] [address] Jun, [facility] [place] [facility] [address] [id number] [place] [address] Jun, [facility] [place] [facility] [address] [id number] [place] [address] Jun, [facility] [place] [facility] [address] [facility] [id number] [place] [address] Apr, [facility] [place] [facility] [address] [id number] [place] [address] Apr, [facility] [place] [facility] [address] [id number] [place] [address] Apr, [facility] [place] [facility] [address] [id number] [place] [address] Mar, [facility] [place] [facility] [address] [id number] [place] [address] Mar, [facility] [place] [facility] [address] [id number] [place] [address] Mar, [facility] [place] [facility] [address] [id number] [place] [address] Mar, [facility] [place] [facility] [address] [id number] [place] [address] Mar, [facility] [place] [facility] [address] [id number] [place] [address] Feb, [facility] [place] [facility] [address] [id number] [place] [address] 14 Feb, 2012 [facility] [place] [facility] [address] [id number] [place] [address] Jan, [facility] [place] [facility] [id number] [place] [address] Jan, [facility] [place] [facility] [address] [id number] [place] [address] Jan, [facility] [place] [facility] [id number] [place] [address] Jan, [facility] [place] [facility] [address] [id number] [place] [address] Jan, [facility] [place] [facility] [address] [id number] [place] [address] Jan, [facility] [place] [facility] [address] [id number] [place] [address] 06 Jan, 2012 [facility] [place] [facility] [address] [id number] [place] [address] Dec, [facility] [place] [facility] [address] [id number] [place] [address] Dec, [facility] [place] [facility] [address] [id number] [place] [address] 30 Dec, 2011 [facility] [place] [facility] [address] [id number] [place] [address] Dec, [facility] [place] [facility] [address] [id number] [facility] [place] [address] Dec, [facility] [place] [facility] [address] [id number] [place] [address] Dec, [facility] [place] [facility] [address] [id number] [place] [address] Dec, [facility] [place] [facility] [address] [id number] [place] [address] Dec, [facility] [place] [facility] [address] [id number] [place] [address] Dec, [facility] [place] [facility] [address] [id number] [place] [address] Dec, [facility] [place] [facility] [address] [id number] [place] [address] Oct, [facility] [place] [facility] [address] [id number] [place] [address] Oct, [facility] [place] [facility] [address] [id number] [place] [address] Aug, [facility] [place] [facility] [address] [id number] [place] [address] Aug, [facility] [place] [facility] [address] [id number] [place] [address] July, [facility] [place] [facility] [address] [id number] [place] [address] Jun, [facility] [place] [facility] [address] [id number] [place] [address] Jun, [facility] [place] [facility] [address] [id number] [place] [address] May, [facility] [place] [facility] [address] [id number] [place] [address] Apr, [facility] [place] [facility] [address] [id number] [place] [address] Apr, [facility] [place] [facility] [address] [id number] [place] [address] 19 Mar, 2011 [facility] [place] [facility] [address] [id number] [place] [address] 16 Mar, 2011 [facility] [place] [facility] [address] [id number] [place] [address] 19 Feb, 2011 [facility] [place] [facility] [address] [id number] [place] [address] 15 Feb, 2011 [facility] [place] [facility] [address] [id number] [place] [address] Feb, [facility] [place] [facility] [address] [id number] [place] [address] Feb, [facility] [place] [facility] [address] [id number] [place] [address] Jan, [facility] [place] [facility] [address] [id number] [place] [address] 17 Dec, 2010 [facility] [place] [facility] [address] [id number] [place] [address] 08 Feb, 2010 [facility] [place] [facility] [address] [id number] [place] [address] Feb, [facility] [place] [facility] [address] [id number] [place] [address] Feb, [facility] [place] [facility] [address] [id number] [place] [address] Feb, [facility] [place] [facility] [address] [id number] [place] [address] 15 Dec, 2009 [facility] [place] [facility] [address] [id number] [place] [address] 15 Dec, 2009 [facility] [place] [facility] [address] [id number] [place] [address] Oct, [facility] [place] [facility] [address] [id number] [place] [address] 15 Jun, 2009 [facility] [place] [facility] [address] [id number] [place] [address] Feb, [facility] [address] [facility] [id number] [place] [address] Feb, [facility] [address] [facility] [id number] [place] [address] Feb, [facility] [address] [facility] [id number] [place] [address] Dec, IMMUNIZATIONS No Known Immunizations SOCIAL HISTORY Never Assessed REASON FOR VISIT PLAN OF CARE VITAL SIGNS Height 64 in 2013-07-07 Weight 197 lbs 2013-07-07 Temperature 97.3 degrees Fahrenheit 2013-07-07 Heart Rate 80 bpm 2013-07-07 Respiratory Rate 18 2013-07-07 Blood pressure systolic 110 mmHg 2013-07-07 Blood pressure diastolic 72 mmHg 2013-07-07 MEDICATIONS Unknown Medications RESULTS No Results PROCEDURES Procedure Date Ordered Result Body Site PROTHROMBIN TIME July 07, 2013 AUTOMATED RETICULOCYTE COUNT July 07, 2013 BL SMEAR W/DIFF WBC COUNT July 07, 2013 IRON BINDING TEST July 07, 2013 ASSAY OF IRON July 07, 2013 ASSAY OF FERRITIN July 07, 2013 MANUAL CELL COUNT, EACH July 07, 2013 VENIPUNCT, ROUTINE* July 07, 2013 HEMOGLOBIN July 07, 2013 INSTRUCTIONS MEDICATIONS ADMINISTERED No Known Medications MEDICAL (GENERAL) HISTORY Type Description Date Medical History obesity Medical History Hematologic disorder factor clotting pro blem Medical History DVT's Medical History Torn Rotator Cuff, repaired 09/23/17 Surgical History Lap Band 10/2012 Surgical History section 1985, 1987 Surgical History cholecystectomy Surgical History [place] Filter 06/2009 Surgical History Left leg exploratory surgery r/t clot 19 88 Surgical History left shoulder surgery 09/14/17 Surgical History lap band removed 12/2017 Surgical History gastic sleeve 01/2018 Surgical History Back surgery 2019 Hospitalization History Ruptured Ovarian Cyst with abd bleed ing 11/2009 Hospitalization History Broken Back 06/2018
--- OUTSIDE RECORDS SUMMARY | 2019-10-19 12:55 | XMS REPORT ---
Author Author KIANAMary Jane Organization [facility] [place] Address [address] [place] [address] Care Team Providers Care Mend Worker Name Role Phone ASHLEY BRUNO Unavailable PROBLEMS Type Condition ICD9-CM Code AHO47-IJ Code Onset Dates Condition S tatus SNOMED Code Problem Factor V Leiden D68.51 Active 3070 10083 Problem 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 Active 211214443 Problem Thyroid follicular adenoma D34 Act phylicia 081789043 Problem Hypertriglyceridemia E78.1 Active 289532249 Problem Presence of IVC filter Z95.828 Active 868994627 Problem History of DVT (deep vein thrombosis) Z86.718 Active 973818126 Problem Pelvic pain R10.2 Active 43394932 Problem Peripheral edema R60.9 Active 271 576569 Problem Moderate episode of recurrent major depressive disorder F33.1 Active 959074681 Problem Generalized anxiety disorder F41.1 A ctive 064480739 Problem Vitamin D deficiency E55.9 Active 45340947 Problem senior care (current) use of anticoagulants Z79.01 Active 852646960 Problem Excessive daytime sleepiness G47.19 A ctive 508943960079 Problem Gastroesophageal reflux disease, esophagitis pre sence not specified K21.9 Active 069662187 Problem Thyroid nodule E04.1 Active 63641 5005 Problem Morbid obesity E66.01 Active 64228 6002 ALLERGIES No Information ENCOUNTERS Encounter Location Date Diagnosis [facility] [place] [address] [facility] [place] [address] Mar, [facility] [place] [address] [facility] [place] [address] Jan, [facility] [place] [address] [facility] [place] [address] Jan, [facility] [place] [address] [facility] [place] [address] Dec, Encounter for weight management Z76.89 [place] [address] [address] Dec, Encounter for weight management Z76.89 a nd Screening mammogram, encounter for Z12.31 [place] [address] [address] Nov, Encounter for weight management Z76.89 [place] [address] [address] Nov, Thyroid nodule E04.1 [place] [address] [address] Nov, Thyroid nodule E04.1 [place] [address] [address] Nov, Thyroid nodule E04.1 [place] [address] [address] Oct, Syncope, unspecified syncope type R55 an d Encounter for weight management Z76.89 [place] [address] [address] Oct, Morbid obesity E66.01 [place] [address] [address] Oct, Hypertriglyceridemia E78.1 [place] [address] [address] Oct, [place] [address] [address] Oct, Hypertriglyceridemia E78.1 [place] [address] [address] Sep, Hypertriglyceridemia E78.1 and Vitamin D deficiency E55.9 [place] [address] [address] Sep, [place] [address] [address] Sep, Morbid obesity E66.01 ; Moderate episode of recurrent major depressive disorder F33.1 ; Hypertriglyceridemia E78.1 and Vitamin D deficiency E55.9 [place] [address] [address] Aug, [place] [address] [address] July, [place] [address] [address] July, [place] [address] [address] Jun, [place] [address] [address] Jun, [place] [address] [address] Jun, Closed compression fracture of L3 lumbar vertebra with routine healing, subsequent encounter S32.030D and Drug-induced constipation K59.03 [place] [address] [address] Jun, [place] [address] [address] Jun, [place] [address] [address] Apr, [place] [address] [address] Apr, Morbid obesity E66.01 [place] [address] [address] Apr, Morbid obesity E66.01 ; Hypertriglycerid emia E78.1 ; Gastroesophageal reflux disease, esophagitis presence not specified K21.9 and Joint pain M25.50 [place] [address] [address] Feb, [place] [address] [address] Feb, [facility] [address] [facility] [id number] [address] [place] [address] Jan, Acute bacterial conjunctivit is H10.30 [facility] [place] [address] [place] [address] [place] [address] 08 Dec, 2017 [facility] [place] [address] [address] 04 Dec, 2017 [facility] [place] [address] [address] 17 Nov, 2017 [place] [address] [address] 07 Nov, 2017 Obstructive sleep apnea G47.33 ; Morbid obesity E66.01 and Gastroesophageal reflux disease, esophagitis presence not specified K21.9 [facility] [address] [facility] [id number] [place] [id number] 06 Nov, 2017 Encounter for examination of eyes and vi ray without abnormal findings Z01.00 [place] [address] [place] [id number] [place] [address] 31 Oct, 2017 Thyroid nodule E04.1 and Screening for b reast cancer Z12.31 [place] [address] [address] 23 Oct, 2017 History of DVT (deep vein thrombosis) Z8 6.718 ; Thyroid nodule E04.1 and Gastroesophageal reflux disease, esophagitis presence not specified K21.9 [place] [address] [place] [address] [place] [address] Oct, [facility] [place] [address] [address] Sep, [facility] [place] [address] [address] Aug, [place] [address] [address] Aug, [facility] [place] [address] [address] Aug, Acute pain of left shoulder M25.512 and Thyroid nodule E04.1 [place] [address] [address] July, Superior glenoid labrum lesion of left mehdi roy, subsequent encounter S43.432D [place] [address] [address] Jun, History of DVT (deep vein thrombosis) Z8 6.718 [place] [address] [address] Jun, History of DVT (deep vein thrombosis) Z8 6.718 [place] [address] [address] Jun, Impingement syndrome, shoulder, left M75 .42 [place] [address] [address] May, Subacromial bursitis of left shoulder saurabh int M75.52 [place] [address] [address] May, [place] [address] [address] May, Hypertriglyceridemia E78.1 ; senior care ( current) use of anticoagulants Z79.01 and Excessive daytime sleepiness G47.19 [place] [address] [address] May, History of DVT (deep vein thrombosis) Z8 6.718 ; Generalized anxiety disorder F41.1 ; Hypertriglyceridemia E78.1 ; senior care (current) use of anticoagulants Z79.01 ; Subacromial bursitis of left shoulder joint M75.52 and Excessive daytime sleepiness G47.19 [place] [address] [address] May, [place] [address] [address] May, senior care (current) use of anticoagulant s Z79.01 [place] [address] [address] Apr, senior care (current) use of anticoagulant s Z79.01 [place] [address] [address] Apr, terminal gauger (current) use of anticoagulant s Z79.01 [place] [address] [address] 20 Apr, 2017 senior care (current) use of anticoagulant s Z79.01 [place] [address] [address] Apr, [place] [address] [address] Apr, senior care (current) use of anticoagulant s Z79.01 [place] [address] [address] 13 Apr, 2017 senior care (current) use of anticoagulant s Z79.01 [place] [address] [address] Apr, senior care (current) use of anticoagulant s Z79.01 [place] [address] [address] Apr, terminal gauger (current) use of anticoagulant s Z79.01 [place] [address] [address] Apr, senior care (current) use of anticoagulant s Z79.01 [place] [address] [address] Apr, senior care (current) use of anticoagulant s Z79.01 [place] [address] [address] Mar, senior care (current) use of anticoagulant s Z79.01 [place] [address] [address] Mar, [place] [address] [address] Mar, senior care (current) use of anticoagulant s Z79.01 [facility] [address] [id number] Jan, Dental examination Z01.20 [facility] [address] [id number] Jan, [facility] [place] [address] [address] Jan, senior care (current) use of anticoagulant s Z79.01 [facility] [place] [address] [address] Jan, History of DVT (deep vein thrombosis) Z8 6.718 [place] [address] [address] Jan, Generalized anxiety disorder F41.1 and P eripheral edema R60.9 [place] [address] [address] Nov, History of DVT (deep vein thrombosis) Z8 6.718 [place] [address] [address] Nov, terminal gauger (current) use of anticoagulant s Z79.01 [facility] [address] [facility] [id number] [address] [place] [address] Nov, Acute non-recurrent maxillar y sinusitis J01.00 [facility] [place] [address] [address] Oct, terminal gauger (current) use of anticoagulant s Z79.01 [facility] [place] [address] [address] Oct, Personal history of venous thrombosis an d embolism Z86.718 [facility] [place] [address] [address] Sep, [facility] [place] [address] [address] Sep, Personal history of venous thrombosis an d embolism Z86.718 [facility] [place] [address] [address] Sep, senior care (current) use of anticoagulant s Z79.01 [place] [address] [address] Sep, senior care (current) use of anticoagulant s Z79.01 [place] [address] [address] Sep, Generalized anxiety disorder F41.1 and H istory of DVT (deep vein thrombosis) Z86.718 [place] [address] [address] Aug, History of DVT (deep vein thrombosis) Z8 6.718 ; Generalized anxiety disorder F41.1 ; senior care (current) use of anticoagulants Z79.01 ; Pelvic pain R10.2 ; Hypertriglyceridemia E78.1 ; Excessive daytime sleepiness G47.19 ; Colon cancer screening Z12.11 ; Screening for breast cancer Z12.39 ; Peripheral edema R60.9 and Gastroesophageal reflux disease, esophagitis presence not specified K21.9 [place] [address] [address] Aug, [place] [address] [address] July, [place] [address] [address] July, History of DVT (deep vein thrombosis) Z8 6.718 [place] [address] [address] Jun, Generalized anxiety disorder F41.1 [place] [address] [address] Jun, History of DVT (deep vein thrombosis) Z8 6.718 [place] [address] [address] Jun, History of DVT (deep vein thrombosis) Z8 6.718 [facility] [place] [address] [place] [address] [place] [address] Jun, History of DVT (deep vein thrombosis) Z8 6.718 [facility] [place] [address] [address] Jun, History of DVT (deep vein thrombosis) Z8 6.718 [place] [address] [address] May, History of DVT (deep vein thrombosis) Z8 6.718 [place] [address] [address] May, senior care (current) use of anticoagulant s Z79.01 [place] [address] [address] May, senior care (current) use of anticoagulant s Z79.01 [place] [address] [address] May, History of DVT (deep vein thrombosis) Z8 6.718 [facility] [address] [facility] [id number] [address] [place] [address] 27 Apr, 2016 Bacterial conjunctivitis of left eye H10.9 and H/O motion sickness Z87.898 [place] [address] [place] [id number] [place] [address] Apr, History of DVT (deep vein thrombosis) Z8 6.718 [place] [address] [address] Apr, History of DVT (deep vein thrombosis) Z8 6.718 [place] [address] [address] 15 Apr, 2016 History of DVT (deep vein thrombosis) Z8 6.718 [facility] [place] [address] [address] 14 Apr, 2016 senior care (current) use of anticoagulant s Z79.01 [place] [address] [address] Mar, [place] [address] [address] Mar, senior care (current) use of anticoagulant s Z79.01 [place] [address] [address] Mar, Hypertriglyceridemia E78.1 and terminal gauger (current) use of anticoagulants Z79.01 [place] [address] [address] Feb, terminal gauger (current) use of anticoagulant s Z79.01 [place] [address] [address] Feb, terminal gauger (current) use of anticoagulant s Z79.01 [place] [address] [address] Feb, terminal gauger (current) use of anticoagulant s Z79.01 [place] [address] [address] Dec, [place] [address] [address] Nov, [place] [address] [address] Nov, History of DVT (deep vein thrombosis) Z8 6.718 ; Tremulousness R25.1 ; Generalized anxiety disorder F41.1 ; Peripheral edema R60.9 and Hypertriglyceridemia E78.1 [place] [address] [address] Oct, History of DVT (deep vein thrombosis) Z8 6.718 [place] [address] [address] Oct, [place] [address] [address] Sep, History of DVT (deep vein thrombosis) Z8 6.718 [facility] [place] [address] [address] Sep, senior care (current) use of anticoagulant s Z79.01 [facility] [place] [address] [address] July, [facility] [place] [address] [address] July, senior care (current) use of anticoagulant s Z79.01 [place] [address] [address] July, terminal gauger (current) use of anticoagulant s Z79.01 [place] [address] [address] Jun, senior care (current) use of anticoagulant s Z79.01 [facility] [place] [address] [address] Jun, Coccyx pain M53.3 ; Encounte r for therapeutic drug level monitoring Z51.81 and senior care current use 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.01 [place] [address] [address] May, Abnormal mammogram R92.8 [facility] IN [place] [address] [place] [address] May, [facility] IN [place] [address] [place] [id number] [place] [address] May, Acute vaginitis N76.0 and En counter for other screening for malignant neoplasm of breast Z12.39 [place] [address] [address] Apr, [place] [address] [address] Apr, [place] [address] [address] Apr, Peripheral edema R60.9 [place] [address] [address] Apr, terminal gauger (current) use of anticoagulant s Z79.01 [place] [address] [address] Apr, Peripheral edema R60.9 and terminal gauger (cu rrent) use of anticoagulants Z79.01 [place] [address] [address] Apr, senior care (current) use of anticoagulant s Z79.01 [place] [address] [address] Apr, [place] [address] [address] Apr, terminal gauger (current) use of anticoagulant s Z79.01 [place] [address] [address] Apr, Peripheral edema R60.9 [place] [address] [address] Mar, terminal gauger (current) use of anticoagulant s Z79.01 [place] [address] [address] Mar, senior care (current) use of anticoagulant s Z79.01 and Hypertriglyceridemia E78.1 [place] [address] [address] Mar, senior care (current) use of anticoagulant s Z79.01 [place] [address] [address] Mar, senior care (current) use of anticoagulant s Z79.01 [place] [address] [address] Mar, [place] [address] [address] Mar, senior care (current) use of anticoagulant s Z79.01 ; Hypertriglyceridemia E78.1 ; Personal history of venous thrombosis and embolism Z86.718 and Lump R22.9 [place] [address] [address] Mar, Personal history of venous thrombosis an d embolism Z86.718 [place] [address] [address] Mar, Personal history of venous thrombosis an d embolism Z86.718 [place] [address] [address] Mar, [place] [address] [address] Dec, Personal history of venous thrombosis an d embolism Z86.718 [place] [address] [address] Dec, Personal history of venous thrombosis an d embolism V12.51 [place] [address] [address] Nov, Personal history of venous thrombosis an d embolism V12.51 [place] [address] [address] Nov, Personal history of venous thrombosis an d embolism V12.51 [place] [address] [address] Nov, Personal history of venous thrombosis an d embolism V12.51 [place] [address] [address] Nov, Personal history of venous thrombosis an d embolism V12.51 [place] [address] [address] Nov, [place] [address] [address] Oct, Dysuria 788.1 [place] [address] [address] Oct, Personal history of venous thrombosis an d embolism V12.51 [facility] [place] [address] [place] [id number] [place] [address] Oct, [facility] [place] [address] [address] Oct, Personal history of venous thrombosis an d embolism V12.51 [facility] [place] [address] [address] Sep, Personal history of venous thrombosis an d embolism V12.51 [facility] [place] [address] [address] Sep, Personal history of venous thrombosis an d embolism V12.51 [facility] [place] [address] [address] Aug, Personal history of venous thrombosis an d embolism V12.51 [facility] [place] [address] [address] Aug, Personal history of venous thrombosis an d embolism V12.51 [facility] [place] [address] [address] Aug, Personal history of venous thrombosis an d embolism V12.51 [facility] [place] [address] [address] July, Generalized anxiety disorder 300.02 ; Ab dominal pain, left lower quadrant 789.04 and Personal history of venous thrombosis and embolism V12.51 [facility] [place] [address] [place] [id number] [place] [address] Jun, [facility] [place] [address] [address] Jun, [facility] [place] [address] [address] May, [facility] [place] [address] [address] May, [facility] [place] [address] [address] May, [facility] [address] [id number] [place] [address] May, [facility] [address] [id number] [place] [address] May, [facility] [address] [id number] [place] [address] May, [facility] [address] [id number] [place] [address] May, [facility] [address] [id number] [place] [address] May, [facility] [address] [id number] [place] [address] Apr, [facility] [address] [id number] [place] [address] Apr, [facility] [address] [id number] [place] [address] Apr, [facility] [address] [id number] [place] [address] Apr, [facility] [address] [id number] [place] [address] Apr, [facility] [address] [id number] [place] [address] Mar, [facility] [address] [id number] [place] [address] Mar, [facility] [address] [id number] [place] [address] Mar, [facility] [address] [id number] [place] [address] Mar, [facility] [address] [id number] [place] [address] Mar, [facility] [address] [id number] [place] [address] Mar, [facility] [address] [id number] [place] [address] Feb, [facility] [address] [facility] [id number] [place] [address] Feb, [facility] [address] [id number] [place] [address] Feb, [facility] [address] [id number] [place] [address] Feb, [facility] [address] [id number] [place] [address] Feb, [facility] [address] [id number] [place] [address] Feb, [facility] [address] [id number] [place] [address] Feb, [facility] [address] [id number] [place] [address] Feb, [facility] [address] [id number] [place] [address] Feb, [facility] [address] [id number] [place] [address] Feb, [facility] [address] [id number] [place] [address] Jan, [facility] [address] [id number] [place] [address] Jan, [facility] [address] [id number] [place] [address] Jan, [facility] [address] [id number] [place] [address] Jan, [facility] [address] [id number] [place] [address] Jan, [facility] [address] [id number] [place] [address] Jan, [facility] [address] [id number] [place] [address] Jan, [facility] [address] [id number] [place] [address] Jan, [facility] [address] [id number] [place] [address] Jan, [facility] [address] [id number] [place] [address] Jan, [facility] [address] [id number] [place] [address] Dec, [facility] [address] [id number] [place] [address] Dec, [facility] [address] [id number] [place] [address] Dec, [facility] [address] [id number] [place] [address] Dec, [facility] [address] [id number] [place] [address] Dec, [facility] [address] [id number] [place] [address] Dec, [facility] [address] [id number] [place] [address] Dec, [facility] [address] [id number] [place] [address] Dec, [facility] [address] [id number] [place] [address] Dec, [facility] [address] [id number] [place] [address] Dec, [facility] [address] [id number] [place] [address] Dec, [facility] [address] [id number] [place] [address] Dec, [facility] [address] [id number] [place] [address] Dec, [facility] [address] [id number] [place] [address] Dec, [facility] [address] [facility] [address] [facility] [id number] [place] [address] Dec, 2013 [facility] [address] [id number] [place] [address] 30 Nov, 2013 [facility] [address] [id number] [place] [address] 30 Sep, 2013 [facility] [address] [id number] [place] [address] 26 Sep, 2013 [facility] [address] [facility] [address] [facility] [id number] [place] [address] 26 Sep, 2013 [facility] [address] [id number] [place] [address] 24 Nov, 2013 [facility] [address] [id number] [place] [address] 24 Nov, 2013 [facility] [address] [id number] [place] [address] 23 Nov, 2013 [facility] [address] [id number] [place] [address] 23 Sep, 2013 [facility] [address] [id number] [place] [address] 18 Nov, 2013 [facility] [address] [id number] [place] [address] 18 Sep, 2013 [facility] [address] [id number] [place] [address] 17 Nov, 2013 [facility] [address] [id number] [place] [address] 17 Sep, 2013 [facility] [address] [id number] [place] [address] 11 Sep, 2013 [facility] [address] [id number] [place] [address] 11 Sep, 2013 [facility] [address] [id number] [place] [address] 10 Sep, 2013 [facility] [address] [id number] [facility] [place] [address] 10 Nov, 2013 [facility] [address] [facility] [id number] [facility] [place] [address] 08 Nov, 2013 [facility] [address] [facility] [id number] [facility] [place] [address] 08 Nov, 2013 [facility] [address] [id number] [facility] [place] [address] Sep, [facility] [address] [facility] [id number] [facility] [place] [address] Sep, 2013 [facility] [address] [facility] [id number] [facility] [place] [address] Sep, [facility] [address] [id number] [place] [address] Sep, [facility] [address] [id number] [place] [address] Sep, [facility] [address] [id number] [place] [address] Sep, [facility] [address] [facility] [facility] [id number] [facility] [place] [address] Aug, [facility] [address] [id number] [place] [address] Aug, [facility] [address] [id number] [place] [address] Aug, [facility] [address] [id number] [facility] [place] [address] Aug, [facility] [address] [facility] [address] [facility] [id number] [facility] [place] [address] 24 Aug, 2013 [facility] [address] [id number] [place] [address] Aug, [facility] [address] [facility] [address] [facility] [id number] [place] [address] Aug, [facility] [address] [id number] [place] [address] Aug, [facility] [address] [id number] [place] [address] 10 Aug, 2013 [facility] [address] [id number] [place] [address] Aug, [facility] [address] [id number] [place] [address] Aug, [facility] [address] [id number] [place] [address] July, [facility] [address] [id number] [place] [address] July, [facility] [address] [id number] [place] [address] Jun, [facility] [address] [id number] [place] [address] Jun, [facility] [address] [id number] [place] [address] Jun, [facility] [address] [id number] [place] [address] Jun, [facility] [address] [id number] [place] [address] Jun, [facility] [address] [id number] [place] [address] 18 Jun, 2013 [facility] [address] [id number] [place] [address] 15 Jun, 2013 [facility] [address] [id number] [place] [address] 15 Jun, 2013 [facility] [address] [id number] [place] [address] 11 Jun, 2013 [facility] [address] [id number] [place] [address] 11 Jun, 2013 [facility] [address] [id number] [place] [address] 10 Jun, 2013 [facility] [address] [id number] [place] [address] Jun, [facility] [address] [id number] [place] [address] May, [facility] [address] [id number] [place] [address] May, [facility] [address] [id number] [place] [address] May, [facility] [address] [id number] [place] [address] May, [facility] [address] [facility] [address] [facility] [id number] [place] [address] May, [facility] [address] [id number] [place] [address] May, [facility] [address] [id number] [place] [address] May, [facility] [address] [id number] [place] [address] May, [facility] [address] [id number] [place] [address] May, [facility] [address] [id number] [place] [address] May, [facility] [address] [id number] [place] [address] May, [facility] [address] [id number] [place] [address] May, [facility] [address] [id number] [place] [address] Apr, [facility] [address] [id number] [place] [address] Apr, [facility] [address] [id number] [place] [address] Apr, [facility] [address] [id number] [place] [address] Apr, [facility] [address] [id number] [place] [address] Apr, [facility] [address] [id number] [place] [address] Apr, [facility] [address] [id number] [place] [address] Apr, [facility] [address] [id number] [place] [address] Apr, [facility] [address] [id number] [place] [address] Apr, [facility] [address] [id number] [place] [address] Apr, [facility] [address] [id number] [place] [address] Apr, [facility] [address] [id number] [place] [address] Apr, [facility] [address] [id number] [place] [address] Apr, [facility] [address] [id number] [place] [address] Apr, [facility] [address] [id number] [place] [address] Apr, [facility] [address] [id number] [place] [address] Apr, [facility] [address] [id number] [place] [address] Apr, [facility] [address] [id number] [place] [address] Jan, [facility] [address] [id number] [place] [address] Jan, [facility] [address] [id number] [place] [address] Jan, [facility] [address] [id number] [place] [address] Jan, [facility] [address] [id number] [place] [address] Jan, [facility] [address] [id number] [place] [address] Jan, [facility] [address] [id number] [place] [address] Jan, [facility] [address] [id number] [place] [address] Dec, [facility] [address] [id number] [place] [address] Dec, [facility] [address] [id number] [place] [address] Dec, [facility] [address] [id number] [place] [address] Nov, [facility] [address] [id number] [place] [address] Nov, [facility] [address] [id number] [place] [address] 05 Nov, 2012 [facility] [address] [id number] [place] [address] Nov, [facility] [address] [id number] [place] [address] Oct, [facility] [address] [id number] [place] [address] Oct, [facility] [address] [id number] [place] [address] Oct, [facility] [address] [id number] [place] [address] Oct, [facility] [address] [id number] [place] [address] Oct, [facility] [address] [id number] [place] [address] Sep, [facility] [address] [id number] [facility] [place] [address] Sep, [facility] [address] [id number] [place] [address] Sep, [facility] [address] [facility] [id number] [facility] [place] [address] Sep, [facility] [address] [id number] [place] [address] Sep, [facility] [address] [id number] [facility] [place] [address] Sep, [facility] [address] [facility] [id number] [facility] [place] [address] Sep, [facility] [address] [id number] [place] [address] Aug, [facility] [address] [id number] [place] [address] Aug, [facility] [address] [id number] [place] [address] July, [facility] [address] [id number] [facility] [place] [address] Jun, [facility] [address] [id number] [place] [address] Jun, [facility] [address] [id number] [place] [address] Jun, [facility] [address] [id number] [place] [address] Apr, [facility] [address] [facility] [id number] [place] [address] Apr, [facility] [address] [id number] [place] [address] Apr, [facility] [address] [id number] [place] [address] Mar, [facility] [address] [id number] [place] [address] Mar, [facility] [address] [id number] [place] [address] 2012 [facility] [address] [id number] [place] [address] 09 Mar, 2012 [facility] [address] [id number] [place] [address] 07 Mar, 2012 [facility] [address] [id number] [place] [address] 14 Feb, 2012 [facility] [address] [id number] [place] [address] 14 Feb, 2012 [facility] [address] [id number] [place] [address] Jan, [facility] [address] [id number] [place] [address] Jan, [facility] [id number] [place] [address] Jan, [facility] [address] [id number] [place] [address] Jan, [facility] [address] [id number] [place] [address] Jan, [facility] [address] [id number] [place] [address] Jan, [facility] [address] [id number] [place] [address] Jan, [facility] [address] [id number] [place] [address] Dec, [facility] [address] [id number] [place] [address] Dec, [facility] [address] [id number] [place] [address] 30 Dec, 2011 [facility] [address] [id number] [place] [address] 30 Dec, 2011 [facility] [address] [id number] [place] [address] Dec, [facility] [address] [id number] [place] [address] Dec, [facility] [address] [id number] [place] [address] Dec, [facility] [address] [id number] [place] [address] Dec, [facility] [address] [id number] [place] [address] Dec, [facility] [address] [id number] [place] [address] Dec, [facility] [address] [id number] [place] [address] Oct, [facility] [address] [id number] [place] [address] Oct, [facility] [address] [id number] [place] [address] Aug, [facility] [address] [id number] [place] [address] Aug, [facility] [address] [id number] [place] [address] July, [facility] [address] [id number] [place] [address] Jun, [facility] [address] [id number] [place] [address] Jun, [facility] [address] [id number] [place] [address] May, [facility] [address] [id number] [place] [address] Apr, [facility] [address] [id number] [place] [address] Apr, [facility] [address] [id number] [place] [address] Mar, [facility] [address] [id number] [place] [address] 16 Mar, 2011 [facility] [address] [id number] [place] [address] 19 Feb, 2011 [facility] [address] [id number] [place] [address] 15 Feb, 2011 [facility] [address] [id number] [place] [address] 13 Feb, 2011 [facility] [address] [id number] [place] [address] 13 Feb, 2011 [facility] [address] [id number] [place] [address] Jan, [facility] [address] [id number] [place] [address] 17 Dec, 2010 [facility] [address] [id number] [place] [address] 08 Feb, 2010 [facility] [address] [id number] [place] [address] 02 Feb, 2010 [facility] [address] [id number] [place] [address] Feb, [facility] [address] [id number] [place] [address] Feb, [facility] [address] [id number] [place] [address] 15 Dec, 2009 [facility] [address] [id number] [place] [address] 15 Dec, 2009 [facility] [address] [id number] [place] [address] 10 Oct, 2009 [facility] [address] [id number] [place] [address] 15 Jun, 2009 [facility] [address] [id number] [place] [address] Feb, [facility] [address] [id number] [place] [address] Feb, [facility] [place] [address] [address] [facility] [id number] [place] [address] Feb, [facility] [place] [address] [facility] [id number] [place] [address] Dec, IMMUNIZATIONS No Known Immunizations SOCIAL HISTORY [...] 1985, 1987 Surgical History cholecystectomy Surgical History [place] Filter 06/2009 Surgical History Left leg exploratory surgery r/t clot Surgical History left shoulder surgery 09/14/17 Surgical History lap band removed 12/2017 Surgical History gastic sleeve 01/2018 Surgical History Back surgery 2018 Hospitalization History Ruptured Ovarian Cyst with abd bleed ing 11/2009 Hospitalization History Broken Back 06/2018
--- OUTSIDE RECORDS SUMMARY | 2019-10-19 12:55 | XMS REPORT ---
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 Active 460951158 Problem Hypertriglyceridemia E78.1 Active 035726670 Problem 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 Active 676157671 Problem Pelvic pain R10.2 Active 02492286 Problem Peripheral edema R60.9 Active 271 385389 Problem Moderate episode of recurrent major depressive disorder F33.1 Active 885211103 Problem Presence of IVC filter Z95.828 Active 100239402 Problem Vitamin D deficiency E55.9 Active 80544265 Problem Generalized anxiety disorder F41.1 A ctive 125992870 Problem Excessive daytime sleepiness G47.19 A ctive 297233039569 Problem Gastroesophageal reflux disease, esophagitis pre sence not specified K21.9 Active 425697278 Problem Thyroid nodule E04.1 Active 15800 5005 Problem Morbid obesity E66.01 Active 60018 6002 ALLERGIES No Information ENCOUNTERS Encounter Location Date Diagnosis [facility] [address] [id number] [place] [address] Apr, [facility] [address] [facility] [place] [address] Mar, [facility] [address] [facility] [place] [address] Jan, [facility] [address] [place] [address] Jan, [place] [address] [address] Dec, Encounter for weight management Z76.89 [place] [address] [address] Dec, Encounter for weight management Z76.89 a nd Screening mammogram, encounter for Z12.31 [place] [address] [address] Nov, Encounter for weight management Z76.89 [place] [address] [address] Nov, Thyroid nodule E04.1 [place] [address] [address] Nov, Thyroid nodule E04.1 [place] [address] [address] Nov, Thyroid nodule E04.1 [place] [address] [address] Oct, Syncope, unspecified syncope type R55 an d Encounter for weight management Z76.89 [place] [address] [address] Oct, Morbid obesity E66.01 [place] [address] [address] Oct, Hypertriglyceridemia E78.1 [place] [address] [address] Oct, [place] [address] [address] Oct, Hypertriglyceridemia E78.1 [place] [address] [address] Sep, Hypertriglyceridemia E78.1 and Vitamin D deficiency E55.9 [place] [address] [address] Sep, [facility] [address] [address] Sep, Morbid obesity E66.01 ; Moderate episode of recurrent major depressive disorder F33.1 ; Hypertriglyceridemia E78.1 and Vitamin D deficiency E55.9 [place] [address] [address] Aug, [facility] [address] [address] July, [facility] [address] [address] July, [place] [address] [address] Jun, [place] [address] [address] Jun, [place] [address] [address] Jun, Closed compression fracture of L3 lumbar vertebra with routine healing, subsequent encounter S32.030D and Drug-induced constipation K59.03 [place] [address] [address] Jun, [place] [address] [address] Jun, [place] [address] [address] Apr, [place] [address] [address] Apr, Morbid obesity E66.01 [place] [address] [address] Apr, Morbid obesity E66.01 ; Hypertriglycerid emia E78.1 ; Gastroesophageal reflux disease, esophagitis presence not specified K21.9 and Joint pain M25.50 [place] [address] [address] Feb, [place] [id number] [facility] [place] [address] Feb, [facility] [address] [facility] [id number] [address] [place] [address] Jan, Acute bacterial conjunctivit is H10.30 [facility] [address] [place] [id number] [place] [address] 08 Dec, 2017 [facility] [address] [address] 04 Dec, 2017 [facility] [address] [place] [id number] [place] [address] 17 Nov, 2017 [place] [address] [address] 07 Nov, 2017 Obstructive sleep apnea G47.33 ; Morbid obesity E66.01 and Gastroesophageal reflux disease, esophagitis presence not specified K21.9 [facility] [address] [facility] [place] [id number] 06 Nov, 2017 Encounter for examination of eyes and vi ray without abnormal findings Z01.00 [facility] [address] [place] [id number] [place] [address] 31 Oct, 2017 Thyroid nodule E04.1 and Screening for b reast cancer Z12.31 [facility] [address] [facility] [place] [address] 23 Oct, 2017 History of DVT (deep vein thrombosis) Z8 6.718 ; Thyroid nodule E04.1 and Gastroesophageal reflux disease, esophagitis presence not specified K21.9 [facility] [address] [place] [id number] [place] [address] Oct, [facility] [address] [address] Sep, [facility] [address] [address] Aug, [facility] [address] [address] Aug, [facility] [address] [address] Aug, Acute pain of left shoulder M25.512 and Thyroid nodule E04.1 [place] [address] [address] July, Superior glenoid labrum lesion of left mehdi roy, subsequent encounter S43.432D [place] [address] [address] Jun, History of DVT (deep vein thrombosis) Z8 6.718 [place] [address] [address] Jun, History of DVT (deep vein thrombosis) Z8 6.718 [place] [address] [address] Jun, Impingement syndrome, shoulder, left M75 .42 [place] [address] [address] May, Subacromial bursitis of left shoulder saurabh int M75.52 [place] [address] [address] May, [place] [address] [address] May, Hypertriglyceridemia E78.1 ; senior living ( current) use of anticoagulants Z79.01 and Excessive daytime sleepiness G47.19 [place] [address] [address] May, History of DVT (deep vein thrombosis) Z8 6.718 ; Generalized anxiety disorder F41.1 ; Hypertriglyceridemia E78.1 ; 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 ; Subacromial bursitis of left shoulder joint M75.52 and Excessive daytime sleepiness G47.19 [place] [address] [address] May, [place] [address] [address] May, senior living (current) use of anticoagulant s Z79.01 [facility] [address] [address] Apr, senior living (current) use of anticoagulant s Z79.01 [facility] [address] [address] Apr, senior living (current) use of anticoagulant s Z79.01 [place] [address] [address] Apr, 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 Z79.01 [place] [address] [address] Apr, [place] [address] [address] Apr, senior living (current) use of anticoagulant s Z79.01 [place] [address] [address] 13 Apr, 2017 senior living (current) use of anticoagulant s Z79.01 [place] [address] [address] Apr, senior living (current) use of anticoagulant s Z79.01 [place] [address] [address] Apr, 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 Z79.01 [place] [address] [address] 07 Apr, 2017 senior living (current) use of anticoagulant s Z79.01 [place] [address] [address] Apr, senior living (current) use of anticoagulant s Z79.01 [place] [address] [address] Mar, senior living (current) use of anticoagulant s Z79.01 [place] [address] [address] Mar, [facility] [address] [address] Mar, senior living (current) use of anticoagulant s Z79.01 [facility] [address] [id number] Jan, Dental examination Z01.20 [facility] [address] [id number] Jan, [facility] [address] [address] Jan, 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 Z79.01 [place] [address] [address] Jan, History of DVT (deep vein thrombosis) Z8 6.718 [place] [address] [address] Jan, Generalized anxiety disorder F41.1 and P eripheral edema R60.9 [facility] [address] [address] Nov, History of DVT (deep vein thrombosis) Z8 6.718 [place] [address] [address] Nov, 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 Z79.01 [facility] [address] [facility] [id number] [address] [place] [address] Nov, Acute non-recurrent maxillar y sinusitis J01.00 [facility] [address] [address] Oct, 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 Z79.01 [facility] [address] [address] Oct, Personal history of venous thrombosis an d embolism Z86.718 [place] [address] [address] Sep, [place] [address] [address] Sep, Personal history of venous thrombosis an d embolism Z86.718 [place] [address] [address] Sep, senior living (current) use of anticoagulant s Z79.01 [place] [address] [address] Sep, senior living (current) use of anticoagulant s Z79.01 [place] [address] [address] Sep, Generalized anxiety disorder F41.1 and H istory of DVT (deep vein thrombosis) Z86.718 [place] [address] [address] Aug, History of DVT (deep vein thrombosis) Z8 6.718 ; Generalized anxiety disorder F41.1 ; 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 ; Pelvic pain R10.2 ; Hypertriglyceridemia E78.1 ; Excessive daytime sleepiness G47.19 ; Colon cancer screening Z12.11 ; Screening for breast cancer Z12.39 ; Peripheral edema R60.9 and Gastroesophageal reflux disease, esophagitis presence not specified K21.9 [place] [address] [address] Aug, [place] [address] [address] July, [place] [address] [address] July, History of DVT (deep vein thrombosis) Z8 6.718 [place] [address] [address] Jun, Generalized anxiety disorder F41.1 [place] [address] [address] Jun, History of DVT (deep vein thrombosis) Z8 6.718 [place] [address] [place] [id number] [place] [address] Jun, History of DVT (deep vein thrombosis) Z8 6.718 [facility] [address] [address] Jun, History of DVT (deep vein thrombosis) Z8 6.718 [facility] [address] [place] [id number] [place] [address] Jun, History of DVT (deep vein thrombosis) Z8 6.718 [facility] [address] [address] May, History of DVT (deep vein thrombosis) Z8 6.718 [place] [address] [address] May, senior living (current) use of anticoagulant s Z79.01 [place] [address] [address] May, 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 Z79.01 [place] [address] [address] May, History of DVT (deep vein thrombosis) Z8 6.718 [facility] [address] [facility] [id number] [address] [place] [address] Apr, Bacterial conjunctivitis of left eye H10.9 and H/O motion sickness Z87.898 [facility] [address] [address] Apr, History of DVT (deep vein thrombosis) Z8 6.718 [facility] [address] [address] Apr, History of DVT (deep vein thrombosis) Z8 6.718 [facility] [address] [address] Apr, History of DVT (deep vein thrombosis) Z8 6.718 [facility] [address] [address] 14 Apr, 2016 senior living (current) use of anticoagulant s Z79.01 [place] [address] [address] Mar, [place] [address] [address] Mar, senior living (current) use of anticoagulant s Z79.01 [place] [address] [address] Mar, Hypertriglyceridemia E78.1 and 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 [place] [address] [address] Feb, 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 Z79.01 [place] [address] [address] Feb, senior living (current) use of anticoagulant s Z79.01 [place] [address] [address] Feb, senior living (current) use of anticoagulant s Z79.01 [place] [address] [address] Dec, [place] [address] [address] Nov, [place] [address] [address] Nov, History of DVT (deep vein thrombosis) Z8 6.718 ; Tremulousness R25.1 ; Generalized anxiety disorder F41.1 ; Peripheral edema R60.9 and Hypertriglyceridemia E78.1 [place] [address] [address] Oct, History of DVT (deep vein thrombosis) Z8 6.718 [place] [address] [address] Oct, [place] [address] [address] Sep, History of DVT (deep vein thrombosis) Z8 6.718 [place] [address] [address] Sep, 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 Z79.01 [place] [address] [address] July, [place] [address] [address] July, senior living (current) use of anticoagulant s Z79.01 [place] [address] [address] July, senior living (current) use of anticoagulant s Z79.01 [place] [address] [address] Jun, 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 Z79.01 [facility] [place] [address] [place] [address] Jun, Coccyx pain M53.3 ; Encounte r for therapeutic drug level monitoring Z51.81 and 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 current use 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.01 [place] [address] [address] May, Abnormal mammogram R92.8 [facility] [address] [place] [address] May, [facility] [address] [place] [address] May, Acute vaginitis N76.0 and En counter for other screening for malignant neoplasm of breast Z12.39 [place] [address] [address] Apr, [place] [address] [address] Apr, [place] [address] [address] Apr, Peripheral edema R60.9 [place] [address] [address] Apr, 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 Z79.01 [place] [address] [address] Apr, Peripheral edema R60.9 and 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 (cu rrent) use of anticoagulants Z79.01 [place] [address] [address] Apr, 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 Z79.01 [place] [address] [address] Apr, [place] [address] [address] Apr, senior living (current) use of anticoagulant s Z79.01 [place] [address] [address] Apr, Peripheral edema R60.9 [place] [address] [address] Mar, senior living (current) use of anticoagulant s Z79.01 [place] [address] [address] Mar, 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 Z79.01 and Hypertriglyceridemia E78.1 [place] [address] [address] Mar, 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 Z79.01 [place] [address] [address] Mar, 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 Z79.01 [place] [address] [address] Mar, [place] [address] [address] Mar, senior living (current) use of anticoagulant s Z79.01 ; Hypertriglyceridemia E78.1 ; Personal history of venous thrombosis and embolism Z86.718 and Lump R22.9 [place] [address] [address] Mar, Personal history of venous thrombosis an d embolism Z86.718 [place] [address] [address] Mar, Personal history of venous thrombosis an d embolism Z86.718 [place] [address] [address] Mar, [place] [address] [address] Dec, Personal history of venous thrombosis an d embolism Z86.718 [place] [address] [address] Dec, Personal history of venous thrombosis an d embolism V12.51 [place] [address] [address] Nov, Personal history of venous thrombosis an d embolism V12.51 [place] [address] [address] Nov, Personal history of venous thrombosis an d embolism V12.51 [place] [address] [address] 17 Nov, 2014 Personal history of venous thrombosis an d embolism V12.51 [place] [address] [address] Nov, Personal history of venous thrombosis an d embolism V12.51 [place] [address] [address] Nov, [place] [address] [address] Oct, Dysuria 788.1 [place] [address] [address] Oct, Personal history of venous thrombosis an d embolism V12.51 [facility] [address] [address] Oct, [facility] [address] [address] Oct, Personal history of venous thrombosis an d embolism V12.51 [facility] [address] [address] Sep, Personal history of venous thrombosis an d embolism V12.51 [facility] [address] [address] Sep, Personal history of venous thrombosis an d embolism V12.51 [facility] [address] [address] Aug, Personal history of venous thrombosis an d embolism V12.51 [facility] [address] [address] Aug, Personal history of venous thrombosis an d embolism V12.51 [facility] [address] [address] Aug, Personal history of venous thrombosis an d embolism V12.51 [facility] [address] [address] July, Generalized anxiety disorder 300.02 ; Ab dominal pain, left lower quadrant 789.04 and Personal history of venous thrombosis and embolism V12.51 [facility] [address] [address] Jun, [facility] [address] [address] Jun, [facility] [address] [address] May, [facility] [address] [address] May, [facility] [address] [id number] [place] [address] May, [facility] [address] [id number] [place] [address] May, [facility] [address] [id number] [place] [address] May, [facility] [address] [id number] [place] [address] May, [facility] [address] [id number] [place] [address] May, [facility] [address] [id number] [place] [address] May, [facility] [address] [id number] [place] [address] Apr, [facility] [address] [id number] [place] [address] Apr, [facility] [address] [id number] [place] [address] Apr, [facility] [address] [id number] [place] [address] Apr, [facility] [address] [id number] [place] [address] Apr, [facility] [address] [id number] [place] [address] Mar, [facility] [address] [id number] [place] [address] Mar, [facility] [address] [id number] [place] [address] Mar, [facility] [address] [id number] [place] [address] Mar, [facility] [address] [id number] [place] [address] Mar, [facility] [address] [id number] [place] [address] Mar, [facility] [address] [facility] [id number] [place] [address] Feb, [facility] [address] [id number] [place] [address] Feb, [facility] [address] [id number] [place] [address] Feb, [facility] [address] [id number] [place] [address] Feb, [facility] [address] [id number] [place] [address] Feb, [facility] [address] [id number] [place] [address] Feb, [facility] [address] [id number] [place] [address] Feb, [facility] [address] [id number] [place] [address] Feb, [facility] [address] [id number] [place] [address] Feb, [facility] [address] [id number] [place] [address] Feb, [facility] [address] [id number] [place] [address] Jan, [facility] [address] [id number] [place] [address] Jan, [facility] [address] [id number] [place] [address] Jan, [facility] [address] [id number] [place] [address] Jan, [facility] [address] [id number] [place] [address] Jan, [facility] [address] [id number] [place] [address] Jan, [facility] [address] [facility] [id number] [place] [address] Jan, [facility] [address] [id number] [place] [address] Jan, [facility] [address] [id number] [place] [address] Jan, [facility] [address] [id number] [place] [address] Jan, [facility] [address] [id number] [place] [address] Dec, [facility] [address] [id number] [place] [address] Dec, [facility] [address] [id number] [place] [address] Dec, [facility] [address] [id number] [place] [address] Dec, [facility] [address] [id number] [place] [address] Dec, [facility] [address] [id number] [place] [address] Dec, [facility] [address] [id number] [place] [address] Dec, [facility] [address] [id number] [place] [address] Dec, [facility] [address] [id number] [place] [address] Dec, [facility] [address] [id number] [place] [address] Dec, [facility] [address] [id number] [place] [address] Dec, [facility] [address] [id number] [place] [address] Dec, [facility] [address] [id number] [place] [address] Dec, [facility] [address] [facility] [id number] [place] [address] Dec, [facility] [place] [facility] [address] [facility] [id number] [place] [address] Dec, [facility] [place] [facility] [address] [id number] [place] [address] 30 Nov, 2013 [facility] [place] [facility] [address] [id number] [place] [address] 30 Sep, 2013 [facility] [place] [facility] [address] [facility] [id number] [place] [address] 26 Nov, 2013 [facility] [place] [facility] [address] [id number] [place] [address] 26 Nov, 2013 [facility] [place] [facility] [address] [id number] [place] [address] 24 Nov, 2013 [facility] [place] [facility] [address] [id number] [place] [address] 24 Nov, 2013 [facility] [place] [facility] [address] [id number] [place] [address] 23 Sep, 2013 [facility] [place] [facility] [address] [id number] [place] [address] 23 Nov, 2013 [facility] [place] [facility] [address] [id number] [place] [address] 18 Sep, 2013 [facility] [place] [facility] [address] [id number] [place] [address] 18 Nov, 2013 [facility] [place] [facility] [address] [id number] [place] [address] 17 Sep, 2013 [facility] [place] [facility] [address] [id number] [place] [address] 17 Sep, 2013 [facility] [place] [facility] [address] [id number] [place] [address] 11 Nov, 2013 [facility] [place] [facility] [address] [id number] [place] [address] 11 Nov, 2013 [facility] [place] [facility] [address] [id number] [place] [address] 10 Nov, 2013 [facility] [place] [facility] [address] [facility] [id number] [facility] [place] [address] 10 Nov, 2013 [facility] [place] [facility] [address] [facility] [id number] [facility] [place] [address] 08 Nov, 2013 [facility] [place] [facility] [address] [id number] [place] [address] 08 Nov, 2013 [facility] [place] [facility] [address] [facility] [id number] [facility] [place] [address] Sep, [facility] [place] [facility] [address] [facility] [id number] [facility] [place] [address] Sep, [facility] [place] [facility] [address] [id number] [place] [address] Sep, [facility] [place] [facility] [address] [id number] [place] [address] Sep, [facility] [place] [facility] [address] [id number] [place] [address] Sep, [facility] [place] [facility] [address] [facility] [id number] [place] [address] Sep, [facility] [place] [facility] [address] [id number] [place] [address] Aug, [facility] [place] [facility] [address] [id number] [place] [address] Aug, [facility] [place] [facility] [address] [id number] [place] [address] Aug, [facility] [place] [facility] [address] [facility] [id number] [place] [address] Aug, [facility] [place] [facility] [address] [id number] [place] [address] 24 Aug, 2013 [facility] [place] [facility] [address] [facility] [id number] [place] [address] Aug, [facility] [place] [facility] [address] [id number] [place] [address] Aug, [facility] [place] [facility] [address] [id number] [place] [address] Aug, [facility] [place] [facility] [address] [id number] [place] [address] Aug, [facility] [place] [facility] [address] [id number] [place] [address] Aug, [facility] [place] [facility] [address] [id number] [place] [address] Aug, [facility] [place] [facility] [address] [id number] [place] [address] July, [facility] [place] [facility] [address] [id number] [place] [address] July, [facility] [place] [facility] [address] [id number] [place] [address] Jun, [facility] [place] [facility] [address] [id number] [place] [address] Jun, [facility] [place] [facility] [address] [id number] [place] [address] Jun, [facility] [place] [facility] [address] [id number] [place] [address] Jun, [facility] [place] [facility] [address] [id number] [place] [address] Jun, [facility] [place] [facility] [address] [id number] [place] [address] Jun, [facility] [place] [facility] [address] [id number] [place] [address] 15 Jun, 2013 [facility] [place] [facility] [address] [id number] [place] [address] 15 Jun, 2013 [facility] [place] [facility] [address] [id number] [place] [address] Jun, [facility] [place] [facility] [address] [id number] [place] [address] Jun, [facility] [place] [facility] [address] [id number] [place] [address] Jun, [facility] [place] [facility] [address] [facility] [id number] [place] [address] Jun, [facility] [place] [facility] [address] [facility] [id number] [facility] [address] May, [facility] [place] [facility] [address] [id number] [place] [address] May, [facility] [place] [facility] [address] [id number] [place] [address] May, [facility] [place] [facility] [address] [facility] [id number] [place] [address] May, [facility] [place] [facility] [address] [id number] [place] [address] May, [facility] [place] [facility] [address] [id number] [place] [address] May, [facility] [place] [facility] [address] [id number] [place] [address] May, [facility] [place] [facility] [address] [id number] [place] [address] May, [facility] [place] [facility] [address] [id number] [place] [address] May, [facility] [place] [facility] [address] [id number] [place] [address] May, [facility] [place] [facility] [address] [id number] [place] [address] May, [facility] [place] [facility] [address] [id number] [place] [address] May, [facility] [place] [facility] [address] [id number] [place] [address] Apr, [facility] [place] [facility] [address] [id number] [place] [address] Apr, [facility] [place] [facility] [address] [id number] [place] [address] Apr, [facility] [place] [facility] [address] [id number] [place] [address] Apr, [facility] [place] [facility] [address] [facility] [id number] [place] [address] Apr, [facility] [place] [facility] [address] [id number] [place] [address] Apr, [facility] [place] [facility] [address] [id number] [place] [address] Apr, [facility] [place] [facility] [address] [id number] [place] [address] Apr, [facility] [place] [facility] [address] [id number] [place] [address] Apr, [facility] [place] [facility] [address] [id number] [place] [address] Apr, [facility] [place] [facility] [address] [id number] [place] [address] Apr, [facility] [place] [facility] [address] [id number] [place] [address] Apr, [facility] [place] [facility] [address] [id number] [place] [address] Apr, [facility] [place] [facility] [address] [id number] [place] [address] Apr, [facility] [place] [facility] [address] [id number] [place] [address] Apr, [facility] [place] [facility] [address] [id number] [place] [address] Apr, [facility] [place] [facility] [address] [id number] [place] [address] Apr, [facility] [place] [facility] [address] [id number] [place] [address] Jan, [facility] [place] [facility] [address] [id number] [place] [address] Jan, [facility] [place] [facility] [address] [id number] [place] [address] 08 Jan, 2013 [facility] [place] [facility] [address] [id number] [place] [address] Jan, [facility] [place] [facility] [address] [id number] [place] [address] Jan, [facility] [place] [facility] [address] [id number] [place] [address] Jan, [facility] [place] [facility] [address] [id number] [place] [address] Jan, [facility] [place] [facility] [address] [id number] [place] [address] Dec, [facility] [place] [facility] [address] [id number] [place] [address] Dec, [facility] [place] [facility] [address] [id number] [place] [address] Dec, [facility] [place] [facility] [address] [id number] [place] [address] Nov, [facility] [place] [facility] [address] [id number] [place] [address] Nov, [facility] [place] [facility] [address] [id number] [place] [address] Nov, [facility] [place] [facility] [address] [id number] [place] [address] Nov, [facility] [place] [facility] [address] [id number] [place] [address] Oct, [facility] [place] [facility] [address] [id number] [place] [address] Oct, [facility] [place] [facility] [address] [id number] [place] [address] Oct, [facility] [place] [facility] [address] [id number] [place] [address] Oct, [facility] [place] [facility] [address] [id number] [place] [address] Oct, [facility] [place] [facility] [address] [id number] [facility] [address] Sep, [facility] [place] [facility] [address] [id number] [facility] [place] [address] Sep, [facility] [place] [facility] [address] [facility] [id number] [facility] [place] [address] Sep, [facility] [place] [facility] [address] [id number] [facility] [address] Sep, [facility] [place] [facility] [address] [facility] [id number] [facility] [place] [address] Sep, [facility] [place] [facility] [address] [id number] [facility] [address] Sep, [facility] [place] [facility] [address] [id number] [place] [address] Sep, [facility] [place] [facility] [address] [id number] [place] [address] Aug, [facility] [place] [facility] [address] [id number] [place] [address] Aug, [facility] [place] [facility] [address] [id number] [facility] [address] July, [facility] [place] [facility] [address] [id number] [place] [address] Jun, [facility] [place] [facility] [address] [id number] [place] [address] Jun, [facility] [place] [facility] [address] [id number] [place] [address] Jun, [facility] [place] [facility] [address] [facility] [id number] [place] [address] Apr, [facility] [place] [facility] [address] [id number] [place] [address] Apr, [facility] [place] [facility] [address] [id number] [place] [address] Apr, [facility] [place] [facility] [address] [id number] [place] [address] Mar, [facility] [place] [facility] [address] [id number] [place] [address] Mar, [facility] [place] [facility] [address] [id number] [place] [address] Mar, [facility] [place] [facility] [address] [id number] [place] [address] Mar, [facility] [place] [facility] [address] [id number] [place] [address] Mar, [facility] [place] [facility] [address] [id number] [place] [address] Feb, [facility] [place] [facility] [address] [id number] [place] [address] 14 Feb, 2012 [facility] [place] [facility] [address] [id number] [place] [address] Jan, [facility] [place] [facility] [id number] [place] [address] Jan, [facility] [place] [facility] [address] [id number] [place] [address] Jan, [facility] [place] [facility] [id number] [place] [address] Jan, [facility] [place] [facility] [address] [id number] [place] [address] Jan, [facility] [place] [facility] [address] [id number] [place] [address] Jan, [facility] [place] [facility] [address] [id number] [place] [address] 06 Jan, 2012 [facility] [place] [facility] [address] [id number] [place] [address] Dec, [facility] [place] [facility] [address] [id number] [place] [address] Dec, [facility] [place] [facility] [address] [id number] [place] [address] 30 Dec, 2011 [facility] [place] [facility] [address] [id number] [place] [address] Dec, [facility] [place] [facility] [address] [id number] [facility] [address] Dec, [facility] [place] [facility] [address] [id number] [place] [address] Dec, [facility] [place] [facility] [address] [id number] [place] [address] Dec, [facility] [place] [facility] [address] [id number] [place] [address] Dec, [facility] [place] [facility] [address] [id number] [place] [address] Dec, [facility] [place] [facility] [address] [id number] [place] [address] Dec, [facility] [place] [facility] [address] [id number] [place] [address] Oct, [facility] [place] [facility] [address] [id number] [place] [address] Oct, [facility] [place] [facility] [address] [id number] [place] [address] Aug, [facility] [place] [facility] [address] [id number] [place] [address] Aug, [facility] [place] [facility] [address] [id number] [place] [address] July, [facility] [place] [facility] [address] [id number] [place] [address] Jun, [facility] [place] [facility] [address] [id number] [place] [address] Jun, [facility] [place] [facility] [address] [id number] [place] [address] May, [facility] [place] [facility] [address] [id number] [place] [address] Apr, [facility] [place] [facility] [address] [id number] [place] [address] Apr, [facility] [place] [facility] [address] [id number] [place] [address] 19 Mar, 2011 [facility] [place] [facility] [address] [id number] [place] [address] 16 Mar, 2011 [facility] [place] [facility] [address] [id number] [place] [address] 19 Feb, 2011 [facility] [place] [facility] [address] [id number] [place] [address] 15 Feb, 2011 [facility] [place] [facility] [address] [id number] [place] [address] Feb, [facility] [place] [facility] [address] [id number] [place] [address] Feb, [facility] [place] [facility] [address] [id number] [place] [address] Jan, [facility] [place] [facility] [address] [id number] [place] [address] 17 Dec, 2010 [facility] [place] [facility] [address] [id number] [place] [address] 08 Feb, 2010 [facility] [place] [facility] [address] [id number] [place] [address] Feb, [facility] [place] [facility] [address] [id number] [place] [address] Feb, [facility] [place] [facility] [address] [id number] [place] [address] Feb, [facility] [place] [facility] [address] [id number] [place] [address] 15 Dec, 2009 [facility] [place] [facility] [address] [id number] [place] [address] 15 Dec, 2009 [facility] [place] [facility] [address] [id number] [place] [address] Oct, [facility] [place] [facility] [address] [id number] [place] [address] 15 Jun, 2009 [facility] [place] [facility] [address] [id number] [place] [address] Feb, [facility] [address] [facility] [id number] [place] [address] Feb, [facility] [address] [id number] [place] [address] Feb, [facility] [address] [facility] [id number] [place] [address] Dec, IMMUNIZATIONS No Known Immunizations SOCIAL HISTORY [...]
--- OUTSIDE RECORDS SUMMARY | 2019-10-19 12:56 | XMS REPORT ---
Author Author Mary Jane Das Organization [facility] Address [address] [place] [address] Care Team Providers Care College Professor Name Role Phone LOVE Das Unavailable PROBLEMS Type Condition ICD9-CM Code NYI45-DB Code Onset Dates Condition S tatus SNOMED Code Problem Thyroid follicular adenoma D34 Act phylicia 053539391 Problem History of DVT (deep vein thrombosis) Z86.718 Active 430700330 Problem Factor V Leiden D68.51 Active 3070 26941 Problem FDC (current) use of anticoagulants Z79.01 Active 122829490 Problem Hypertriglyceridemia E78.1 Active 683146825 Problem 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 Active 332556535 Problem Pelvic pain R10.2 Active 89048440 Problem Peripheral edema R60.9 Active 271 482239 Problem Moderate episode of recurrent major depressive disorder F33.1 Active 194451359 Problem Presence of IVC filter Z95.828 Active 262005201 Problem Vitamin D deficiency E55.9 Active 21642153 Problem Generalized anxiety disorder F41.1 A ctive 463721629 Problem Excessive daytime sleepiness G47.19 A ctive 537569389535 Problem Gastroesophageal reflux disease, esophagitis pre sence not specified K21.9 Active 988506871 Problem Thyroid nodule E04.1 Active 13510 5005 Problem Morbid obesity E66.01 Active 09708 6002 ALLERGIES No Information ENCOUNTERS Encounter Location Date Diagnosis [facility] [address] [id number] [place] [address] Jan, [facility] [address] [id number] [place] [address] Jan, [facility] [address] [facility] [place] [address] Dec, Encounter for weight management Z76.89 [facility] [address] [address] Dec, Encounter for weight management Z76.89 a nd Screening mammogram, encounter for Z12.31 [place] [address] [address] Nov, Encounter for weight management Z76.89 [place] [address] [address] Nov, Thyroid nodule E04.1 [place] [address] [address] Nov, Thyroid nodule E04.1 [place] [address] [address] Nov, Thyroid nodule E04.1 [place] [address] [address] Oct, Syncope, unspecified syncope type R55 an d Encounter for weight management Z76.89 [place] [address] [address] Oct, Morbid obesity E66.01 [place] [address] [address] Oct, Hypertriglyceridemia E78.1 [place] [address] [address] Oct, [place] [address] [address] Oct, Hypertriglyceridemia E78.1 [place] [address] [address] Sep, Hypertriglyceridemia E78.1 and Vitamin D deficiency E55.9 [place] [address] [address] Sep, [place] [address] [address] Sep, Morbid obesity E66.01 ; Moderate episode of recurrent major depressive disorder F33.1 ; Hypertriglyceridemia E78.1 and Vitamin D deficiency E55.9 [place] [address] [address] Aug, [place] [address] [address] July, [facility] [address] [address] July, [place] [address] [address] Jun, [place] [address] [address] Jun, [place] [address] [address] Jun, Closed compression fracture of L3 lumbar vertebra with routine healing, subsequent encounter S32.030D and Drug-induced constipation K59.03 [place] [address] [address] Jun, [place] [address] [address] Jun, [place] [address] [address] Apr, [place] [address] [address] Apr, Morbid obesity E66.01 [place] [address] [address] Apr, Morbid obesity E66.01 ; Hypertriglycerid emia E78.1 ; Gastroesophageal reflux disease, esophagitis presence not specified K21.9 and Joint pain M25.50 [place] [address] [address] Feb, [place] [address] [address] Feb, [facility] [address] [facility] [id number] [address] [place] [address] Jan, Acute bacterial conjunctivit is H10.30 [facility] [address] [place] [id number] [place] [address] Dec, [facility] [address] [address] Dec, [facility] [address] [place] [id number] [place] [address] 17 Nov, 2017 [facility] [address] [address] 07 Nov, 2017 Obstructive sleep apnea G47.33 ; Morbid obesity E66.01 and Gastroesophageal reflux disease, esophagitis presence not specified K21.9 [facility] [address] [id number] [place] [id number] 06 Nov, 2017 Encounter for examination of eyes and vi ray without abnormal findings Z01.00 [place] [address] [place] [id number] [place] [address] Oct, Thyroid nodule E04.1 and Screening for b reast cancer Z12.31 [facility] [address] [place] [address] [place] [address] Oct, History of DVT (deep vein thrombosis) Z8 6.718 ; Thyroid nodule E04.1 and Gastroesophageal reflux disease, esophagitis presence not specified K21.9 [facility] [address] [address] Oct, [facility] [address] [address] Sep, [facility] [address] [address] Aug, [facility] [address] [address] Aug, [facility] [address] [address] Aug, Acute pain of left shoulder M25.512 and Thyroid nodule E04.1 [facility] [address] [address] July, Superior glenoid labrum lesion of left s kirill, subsequent encounter S43.432D [place] [address] [address] Jun, History of DVT (deep vein thrombosis) Z8 6.718 [place] [address] [address] Jun, History of DVT (deep vein thrombosis) Z8 6.718 [place] [address] [address] Jun, Impingement syndrome, shoulder, left M75 .42 [place] [address] [address] May, Subacromial bursitis of left shoulder saurabh int M75.52 [place] [address] [address] May, [place] [address] [address] May, Hypertriglyceridemia E78.1 ; FDC ( current) use of anticoagulants Z79.01 and Excessive daytime sleepiness G47.19 [place] [address] [address] May, History of DVT (deep vein thrombosis) Z8 6.718 ; Generalized anxiety disorder F41.1 ; Hypertriglyceridemia E78.1 ; FDC (current) use of anticoagulants Z79.01 ; Subacromial bursitis of left shoulder joint M75.52 and Excessive daytime sleepiness G47.19 [place] [address] [address] May, [place] [address] [address] May, 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.01 [place] [address] [address] Apr, 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 Z79.01 [place] [address] [address] Apr, FDC (current) use of anticoagulant s Z79.01 [place] [address] [address] 20 Apr, 2017 FDC (current) use of anticoagulant s Z79.01 [place] [address] [address] Apr, [place] [address] [address] Apr, 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 Z79.01 [place] [address] [address] 13 Apr, 2017 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 Z79.01 [place] [address] [address] Apr, 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 Z79.01 [place] [address] [address] Apr, 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 Z79.01 [place] [address] [address] 07 Apr, 2017 FDC (current) use of anticoagulant s Z79.01 [place] [address] [address] Apr, 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 Z79.01 [place] [address] [address] Mar, 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 Z79.01 [place] [address] [address] Mar, [place] [address] [address] Mar, 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 Z79.01 [facility] [address] [id number] [place] [id number] Jan, Dental examination Z01.20 [facility] [address] [id number] Jan, [facility] [address] [address] Jan, FDC (current) use of anticoagulant s Z79.01 [facility] [address] [address] Jan, History of DVT (deep vein thrombosis) Z8 6.718 [facility] [address] [address] Jan, Generalized anxiety disorder F41.1 and P eripheral edema R60.9 [facility] [address] [address] Nov, History of DVT (deep vein thrombosis) Z8 6.718 [facility] [address] [address] Nov, 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 Z79.01 [facility] [address] [facility] [id number] [address] [place] [address] Nov, Acute non-recurrent maxillar y sinusitis J01.00 [facility] [address] [address] Oct, 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 Z79.01 [facility] [address] [address] Oct, Personal history of venous thrombosis an d embolism Z86.718 [facility] [address] [address] Sep, [facility] [address] [address] Sep, Personal history of venous thrombosis an d embolism Z86.718 [facility] [address] [address] Sep, FDC (current) use of anticoagulant s Z79.01 [place] [address] [address] Sep, FDC (current) use of anticoagulant s Z79.01 [place] [address] [address] Sep, Generalized anxiety disorder F41.1 and H istory of DVT (deep vein thrombosis) Z86.718 [place] [address] [address] Aug, History of DVT (deep vein thrombosis) Z8 6.718 ; Generalized anxiety disorder F41.1 ; FDC (current) use of anticoagulants Z79.01 ; Pelvic pain R10.2 ; Hypertriglyceridemia E78.1 ; Excessive daytime sleepiness G47.19 ; Colon cancer screening Z12.11 ; Screening for breast cancer Z12.39 ; Peripheral edema R60.9 and Gastroesophageal reflux disease, esophagitis presence not specified K21.9 [place] [address] [address] Aug, [place] [address] [address] July, [place] [address] [address] July, History of DVT (deep vein thrombosis) Z8 6.718 [place] [address] [address] Jun, Generalized anxiety disorder F41.1 [place] [address] [address] Jun, History of DVT (deep vein thrombosis) Z8 6.718 [place] [address] [address] Jun, History of DVT (deep vein thrombosis) Z8 6.718 [place] [address] [address] Jun, History of DVT (deep vein thrombosis) Z8 6.718 [facility] [address] [address] Jun, History of DVT (deep vein thrombosis) Z8 6.718 [facility] [address] [address] May, History of DVT (deep vein thrombosis) Z8 6.718 [place] [address] [address] May, 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 Z79.01 [place] [address] [address] May, 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 Z79.01 [place] [address] [address] May, History of DVT (deep vein thrombosis) Z8 6.718 [facility] [address] [facility] [id number] [address] [place] [address] 27 Apr, 2016 Bacterial conjunctivitis of left eye H10.9 and H/O motion sickness Z87.898 [place] [address] [address] 24 Apr, 2016 History of DVT (deep vein thrombosis) Z8 6.718 [place] [address] [address] 23 Apr, 2016 History of DVT (deep vein thrombosis) Z8 6.718 [place] [address] [address] 15 Apr, 2016 History of DVT (deep vein thrombosis) Z8 6.718 [facility] [address] [address] 14 Apr, 2016 FDC (current) use of anticoagulant s Z79.01 [place] [address] [address] Mar, [place] [address] [address] Mar, FDC (current) use of anticoagulant s Z79.01 [place] [address] [address] Mar, Hypertriglyceridemia E78.1 and 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.01 [place] [address] [address] Feb, 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 Z79.01 [place] [address] [address] Feb, 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 Z79.01 [place] [address] [address] Feb, 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 Z79.01 [place] [address] [address] Dec, [place] [address] [address] Nov, [place] [address] [address] Nov, History of DVT (deep vein thrombosis) Z8 6.718 ; Tremulousness R25.1 ; Generalized anxiety disorder F41.1 ; Peripheral edema R60.9 and Hypertriglyceridemia E78.1 [place] [address] [address] Oct, History of DVT (deep vein thrombosis) Z8 6.718 [place] [address] [address] Oct, [place] [address] [address] Sep, History of DVT (deep vein thrombosis) Z8 6.718 [place] [address] [address] Sep, FDC (current) use of anticoagulant s Z79.01 [place] [address] [address] July, [place] [address] [address] July, FDC (current) use of anticoagulant s Z79.01 [place] [address] [address] July, 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 Z79.01 [place] [address] [address] Jun, 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 Z79.01 [facility] [address] [place] [id number] [place] [address] Jun, Coccyx pain M53.3 ; Encounte r for therapeutic drug level monitoring Z51.81 and FDC current use 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.01 [place] [address] [address] May, Abnormal mammogram R92.8 [facility] [place] [address] [address] May, [facility] [address] [address] May, Acute vaginitis N76.0 and En counter for other screening for malignant neoplasm of breast Z12.39 [place] [address] [address] Apr, [place] [address] [address] Apr, [place] [address] [address] Apr, Peripheral edema R60.9 [place] [address] [address] Apr, FDC (current) use of anticoagulant s Z79.01 [place] [address] [address] Apr, Peripheral edema R60.9 and 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 operator (cu rrent) use of anticoagulants Z79.01 [place] [address] [address] Apr, FDC (current) use of anticoagulant s Z79.01 [place] [address] [address] Apr, [place] [address] [address] Apr, 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 Z79.01 [place] [address] [address] Apr, Peripheral edema R60.9 [place] [address] [address] Mar, 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 Z79.01 [place] [address] [address] Mar, 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 Z79.01 and Hypertriglyceridemia E78.1 [place] [address] [address] Mar, FDC (current) use of anticoagulant s Z79.01 [place] [address] [address] Mar, 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 Z79.01 [place] [address] [address] Mar, [place] [address] [address] Mar, 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 Z79.01 ; Hypertriglyceridemia E78.1 ; Personal history of venous thrombosis and embolism Z86.718 and Lump R22.9 [place] [address] [address] Mar, Personal history of venous thrombosis an d embolism Z86.718 [place] [address] [address] Mar, Personal history of venous thrombosis an d embolism Z86.718 [place] [address] [address] Mar, [place] [address] [address] Dec, Personal history of venous thrombosis an d embolism Z86.718 [place] [address] [address] Dec, Personal history of venous thrombosis an d embolism V12.51 [place] [address] [address] Nov, Personal history of venous thrombosis an d embolism V12.51 [place] [address] [address] Nov, Personal history of venous thrombosis an d embolism V12.51 [place] [address] [address] Nov, Personal history of venous thrombosis an d embolism V12.51 [place] [address] [address] Nov, Personal history of venous thrombosis an d embolism V12.51 [place] [address] [address] Nov, [place] [address] [address] Oct, Dysuria 788.1 [place] [address] [address] Oct, Personal history of venous thrombosis an d embolism V12.51 [place] [address] [address] Oct, [facility] [address] [place] [id number] [place] [address] Oct, Personal history of venous thrombosis an d embolism V12.51 [facility] [address] [place] [id number] [place] [address] Sep, Personal history of venous thrombosis an d embolism V12.51 [facility] [address] [address] Sep, Personal history of venous thrombosis an d embolism V12.51 [facility] [address] [address] Aug, Personal history of venous thrombosis an d embolism V12.51 [facility] [address] [address] Aug, Personal history of venous thrombosis an d embolism V12.51 [facility] [address] [address] Aug, Personal history of venous thrombosis an d embolism V12.51 [facility] [address] [place] [id number] [place] [address] July, Generalized anxiety disorder 300.02 ; Ab dominal pain, left lower quadrant 789.04 and Personal history of venous thrombosis and embolism V12.51 [facility] [address] [place] [id number] [place] [address] Jun, [facility] [address] [place] [id number] [place] [address] Jun, [facility] [address] [place] [id number] [place] [address] May, [facility] [address] [address] May, [facility] [address] [place] [id number] [place] [address] May, [facility] [address] [address] May, [facility] [address] [facility] [id number] [place] [address] May, [facility] [address] [facility] [id number] [facility] [place] [address] May, [facility] [address] [facility] [id number] [place] [address] May, [facility] [address] [id number] [place] [address] May, [facility] [address] [facility] [id number] [place] [address] Apr, [facility] [address] [id number] [place] [address] Apr, [facility] [address] [id number] [place] [address] Apr, [facility] [address] [id number] [place] [address] Apr, [facility] [address] [id number] [place] [address] Apr, [facility] [address] [id number] [place] [address] Mar, [facility] [address] [id number] [place] [address] Mar, [facility] [address] [id number] [place] [address] Mar, [facility] [address] [id number] [place] [address] Mar, [facility] [address] [id number] [place] [address] Mar, [facility] [address] [id number] [place] [address] Mar, [facility] [address] [id number] [place] [address] Feb, [facility] [address] [id number] [place] [address] 17 Feb, 2014 [facility] [address] [id number] [place] [address] Feb, [facility] [address] [id number] [place] [address] Feb, [facility] [address] [id number] [place] [address] Feb, [facility] [address] [id number] [place] [address] Feb, [facility] [address] [id number] [place] [address] Feb, [facility] [address] [id number] [place] [address] Feb, [facility] [address] [id number] [place] [address] Feb, [facility] [address] [id number] [place] [address] Feb, [facility] [address] [id number] [place] [address] Jan, [facility] [address] [id number] [place] [address] Jan, [facility] [address] [id number] [place] [address] Jan, [facility] [address] [id number] [place] [address] Jan, [facility] [address] [id number] [place] [address] Jan, [facility] [address] [place] [id number] [place] [address] Jan, [facility] [address] [id number] [place] [address] Jan, [facility] [address] [id number] [place] [address] Jan, [facility] [address] [facility] [id number] [place] [address] Jan, 2013 [facility] [address] [facility] [id number] [place] [address] Jan, [facility] [address] [id number] [place] [address] Dec, [facility] [address] [id number] [place] [address] Dec, [facility] [address] [facility] [id number] [place] [address] Dec, [facility] [address] [id number] [place] [address] Dec, [facility] [address] [id number] [place] [address] Dec, [facility] [address] [id number] [place] [address] Dec, [facility] [address] [id number] [place] [address] Dec, [facility] [address] [id number] [place] [address] Dec, [facility] [address] [id number] [place] [address] Dec, [facility] [address] [id number] [place] [address] Dec, [facility] [address] [id number] [place] [address] Dec, [facility] [address] [facility] [id number] [place] [address] Dec, [facility] [address] [id number] [place] [address] Dec, [facility] [address] [id number] [place] [address] Dec, [facility] [address] [id number] [place] [address] Dec, [facility] [address] [facility] [id number] [place] [address] 30 Nov, 2013 [facility] [address] [facility] [id number] [place] [address] 30 Nov, 2013 [facility] [address] [facility] [id number] [place] [address] 26 Nov, 2013 [facility] [address] [id number] [place] [address] 26 Nov, 2013 [facility] [address] [facility] [id number] [place] [address] 24 Nov, 2013 [facility] [address] [id number] [place] [address] 24 Nov, 2013 [facility] [address] [id number] [place] [address] 23 Nov, 2013 [facility] [address] [id number] [place] [address] 23 Nov, 2013 [facility] [address] [id number] [place] [address] 18 Nov, 2013 [facility] [address] [id number] [place] [address] 18 Nov, 2013 [facility] [address] [id number] [place] [address] 17 Nov, 2013 [facility] [address] [id number] [place] [address] 17 Nov, 2013 [facility] [address] [id number] [place] [address] 11 Nov, 2013 [facility] [address] [id number] [place] [address] 11 Nov, 2013 [facility] [address] [id number] [place] [address] 10 Nov, 2013 [facility] [address] [id number] [place] [address] 10 Nov, 2013 [facility] [address] [id number] [place] [address] 08 Nov, 2013 [facility] [address] [facility] [id number] [place] [address] 08 Nov, 2013 [facility] [address] [facility] [id number] [place] [address] Sep, [facility] [address] [id number] [place] [address] Sep, 2013 [facility] [address] [facility] [id number] [place] [address] Sep, 2013 [facility] [address] [facility] [id number] [place] [address] Sep, [facility] [address] [id number] [place] [address] Sep, [facility] [address] [id number] [place] [address] Sep, [facility] [address] [id number] [place] [address] Aug, [facility] [address] [facility] [id number] [place] [address] Aug, [facility] [address] [id number] [place] [address] Aug, [facility] [address] [id number] [place] [address] Aug, [facility] [address] [id number] [place] [address] Aug, [facility] [address] [facility] [id number] [place] [address] Aug, [facility] [address] [id number] [place] [address] Aug, [facility] [address] [id number] [place] [address] Aug, [facility] [address] [id number] [place] [address] Aug, [facility] [address] [facility] [id number] [place] [address] Aug, [facility] [address] [facility] [id number] [place] [address] Aug, [facility] [address] [facility] [id number] [place] [address] July, [facility] [address] [id number] [place] [address] July, [facility] [address] [facility] [id number] [place] [address] Jun, [facility] [address] [id number] [place] [address] Jun, [facility] [address] [id number] [place] [address] Jun, [facility] [address] [id number] [place] [address] Jun, [facility] [address] [id number] [place] [address] Jun, [facility] [address] [id number] [place] [address] Jun, [facility] [address] [id number] [place] [address] 15 Jun, 2013 [facility] [address] [id number] [place] [address] 15 Jun, 2013 [facility] [address] [id number] [place] [address] Jun, [facility] [address] [facility] [id number] [place] [address] 11 Jun, 2013 [facility] [address] [id number] [place] [address] 10 Jun, 2013 [facility] [address] [id number] [place] [address] Jun, [facility] [address] [id number] [place] [address] May, [facility] [address] [id number] [place] [address] May, [facility] [address] [id number] [place] [address] May, [facility] [address] [id number] [place] [address] May, [facility] [address] [id number] [place] [address] May, [facility] [address] [id number] [place] [address] May, [facility] [address] [id number] [place] [address] May, [facility] [address] [id number] [place] [address] May, [facility] [address] [id number] [place] [address] May, [facility] [address] [id number] [place] [address] May, [facility] [address] [id number] [place] [address] May, [facility] [address] [id number] [place] [address] May, [facility] [address] [id number] [place] [address] Apr, [facility] [address] [id number] [place] [address] Apr, [facility] [address] [id number] [place] [address] Apr, [facility] [address] [id number] [place] [address] Apr, [facility] [address] [id number] [place] [address] Apr, [facility] [address] [id number] [place] [address] Apr, [facility] [address] [id number] [place] [address] Apr, [facility] [address] [id number] [place] [address] Apr, [facility] [address] [id number] [place] [address] Apr, [facility] [address] [id number] [place] [address] Apr, [facility] [address] [id number] [place] [address] Apr, [facility] [address] [id number] [place] [address] Apr, [facility] [address] [id number] [place] [address] Apr, [facility] [address] [id number] [place] [address] Apr, [facility] [address] [id number] [place] [address] Apr, [facility] [address] [id number] [place] [address] Apr, [facility] [address] [id number] [place] [address] Apr, [facility] [address] [id number] [place] [address] Jan, [facility] [address] [id number] [place] [address] Jan, [facility] [address] [id number] [place] [address] Jan, [facility] [address] [id number] [place] [address] Jan, [facility] [address] [id number] [place] [address] 07 Jan, 2013 [facility] [address] [id number] [place] [address] Jan, [facility] [address] [id number] [place] [address] Jan, [facility] [address] [id number] [place] [address] Dec, [facility] [address] [id number] [place] [address] Dec, [facility] [address] [id number] [place] [address] Dec, [facility] [address] [id number] [place] [address] Nov, [facility] [address] [id number] [place] [address] Nov, [facility] [address] [id number] [place] [address] Nov, [facility] [address] [id number] [place] [address] Nov, [facility] [address] [id number] [place] [address] Oct, [facility] [address] [id number] [place] [address] Oct, [facility] [address] [id number] [place] [address] Oct, [facility] [address] [id number] [place] [address] Oct, [facility] [address] [id number] [place] [address] Oct, [facility] [address] [id number] [place] [address] Sep, [facility] [address] [id number] [place] [address] Sep, [facility] [address] [id number] [place] [address] Sep, [facility] [address] [id number] [place] [address] Sep, [facility] [address] [id number] [place] [address] Sep, [facility] [address] [id number] [place] [address] Sep, [facility] [address] [id number] [place] [address] Sep, [facility] [address] [id number] [place] [address] Aug, [facility] [address] [id number] [place] [address] Aug, [facility] [address] [id number] [place] [address] July, [facility] [address] [id number] [place] [address] Jun, [facility] [address] [id number] [place] [address] Jun, [facility] [address] [id number] [place] [address] Jun, [facility] [address] [id number] [place] [address] Apr, [facility] [address] [id number] [place] [address] Apr, [facility] [address] [id number] [place] [address] Apr, [facility] [address] [id number] [place] [address] Mar, [facility] [address] [id number] [place] [address] Mar, [facility] [address] [id number] [place] [address] 2012 [facility] [address] [id number] [place] [address] Mar, [facility] [address] [id number] [place] [address] Mar, [facility] [address] [id number] [place] [address] 14 Feb, 2012 [facility] [address] [id number] [place] [address] 14 Feb, 2012 [facility] [address] [id number] [place] [address] Jan, [facility] [address] [id number] [place] [address] Jan, [facility] [address] [id number] [place] [address] Jan, [facility] [address] [id number] [place] [address] Jan, [facility] [address] [id number] [place] [address] Jan, [facility] [address] [id number] [place] [address] Jan, [facility] [address] [id number] [place] [address] 06 Jan, 2012 [facility] [address] [id number] [place] [address] Dec, [facility] [address] [id number] [place] [address] Dec, [facility] [address] [id number] [place] [address] 30 Dec, 2011 [facility] [address] [id number] [place] [address] 30 Dec, 2011 [facility] [address] [id number] [place] [address] 30 Dec, 2011 [facility] [address] [id number] [place] [address] Dec, [facility] [address] [id number] [place] [address] Dec, [facility] [address] [id number] [place] [address] Dec, [facility] [address] [id number] [place] [address] Dec, [facility] [address] [id number] [place] [address] Dec, [facility] [address] [id number] [place] [address] Oct, [facility] [address] [id number] [place] [address] Oct, [facility] [address] [id number] [place] [address] Aug, [facility] [address] [id number] [place] [address] Aug, [facility] [address] [id number] [place] [address] July, [facility] [address] [id number] [place] [address] Jun, [facility] [address] [id number] [place] [address] Jun, [facility] [address] [id number] [place] [address] May, [facility] [address] [id number] [place] [address] Apr, [facility] [address] [id number] [place] [address] Apr, [facility] [address] [id number] [place] [address] Mar, [facility] [address] [id number] [place] [address] Mar, [facility] [address] [id number] [place] [address] 19 Feb, 2011 [facility] [address] [id number] [place] [address] 15 Feb, 2011 [facility] [address] [id number] [place] [address] 13 Feb, 2011 [facility] [address] [id number] [place] [address] 13 Feb, 2011 [facility] [address] [id number] [place] [address] Jan, [facility] [address] [id number] [place] [address] 17 Dec, 2010 [facility] [address] [id number] [place] [address] 08 Feb, 2010 [facility] [id number] [place] [address] 02 Feb, 2010 [facility] [address] [id number] [place] [address] Feb, [facility] [address] [id number] [place] [address] Feb, [facility] [address] [id number] [place] [address] 15 Dec, 2009 [facility] [address] [id number] [place] [address] 15 Dec, 2009 [facility] [address] [id number] [place] [address] Oct, [facility] [address] [id number] [place] [address] 15 Jun, 2009 [facility] [address] [id number] [place] [address] Feb, [facility] [address] [id number] [place] [address] 18 Feb, 2008 [facility] [address] [id number] [place] [address] Feb, [facility] [address] [facility] [id number] [place] [address] Dec, IMMUNIZATIONS No Known Immunizations SOCIAL HISTORY Never Assessed REASON FOR VISIT PLAN OF CARE VITAL SIGNS Height 64 in 2013-09-06 Weight 206.9 lbs 2013-09-06 Temperature 97.7 degrees Fahrenheit 2013-09-06 Heart Rate 80 bpm 2013-09-06 Respiratory Rate 18 2013-09-06 Blood pressure systolic 115 mmHg 2013-09-06 Blood pressure diastolic 74 mmHg 2013-09-06 MEDICATIONS Unknown Medications RESULTS No Results PROCEDURES No Known procedures INSTRUCTIONS MEDICATIONS ADMINISTERED No Known Medications MEDICAL (GENERAL) HISTORY Type Description Date Medical History obesity Medical History 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
--- OUTSIDE RECORDS SUMMARY | 2019-10-19 12:56 | XMS REPORT ---
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 Active 756927083 Problem Hypertriglyceridemia E78.1 Active 266431507 Problem 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 Active 459337636 Problem Pelvic pain R10.2 Active 54267846 Problem Peripheral edema R60.9 Active 271 783696 Problem Moderate episode of recurrent major depressive disorder F33.1 Active 269293434 Problem Presence of IVC filter Z95.828 Active 334488684 Problem Vitamin D deficiency E55.9 Active 67670599 Problem Generalized anxiety disorder F41.1 A ctive 480159918 Problem Excessive daytime sleepiness G47.19 A ctive 524033309187 Problem Gastroesophageal reflux disease, esophagitis pre sence not specified K21.9 Active 545834829 Problem Thyroid nodule E04.1 Active 23436 5005 Problem Morbid obesity E66.01 Active 34821 6002 ALLERGIES No Information ENCOUNTERS Encounter Location Date Diagnosis [facility] [address] [id number] [place] [address] Jan, [facility] [address] [address] Jan, [facility] [address] [place] [id number] [place] [address] Dec, Encounter for weight management Z76.89 [facility] [address] [address] Dec, Encounter for weight management Z76.89 a nd Screening mammogram, encounter for Z12.31 [place] [address] [address] Nov, Encounter for weight management Z76.89 [place] [address] [address] Nov, Thyroid nodule E04.1 [place] [address] [address] Nov, Thyroid nodule E04.1 [place] [address] [address] Nov, Thyroid nodule E04.1 [place] [address] [address] Oct, Syncope, unspecified syncope type R55 an d Encounter for weight management Z76.89 [place] [address] [address] Oct, Morbid obesity E66.01 [place] [address] [address] Oct, Hypertriglyceridemia E78.1 [place] [address] [address] Oct, [place] [address] [address] Oct, Hypertriglyceridemia E78.1 [place] [address] [address] Sep, Hypertriglyceridemia E78.1 and Vitamin D deficiency E55.9 [place] [address] [address] Sep, [place] [address] [address] Sep, Morbid obesity E66.01 ; Moderate episode of recurrent major depressive disorder F33.1 ; Hypertriglyceridemia E78.1 and Vitamin D deficiency E55.9 [facility] [address] [place] [id number] [place] [address] Aug, [facility] [address] [address] July, [facility] [address] [address] July, [place] [address] [address] Jun, [facility] [address] [address] Jun, [place] [address] [address] Jun, Closed compression fracture of L3 lumbar vertebra with routine healing, subsequent encounter S32.030D and Drug-induced constipation K59.03 [place] [address] [address] Jun, [facility] [address] [address] Jun, [place] [address] [address] Apr, [facility] [address] [address] Apr, Morbid obesity E66.01 [place] [address] [address] Apr, Morbid obesity E66.01 ; Hypertriglycerid emia E78.1 ; Gastroesophageal reflux disease, esophagitis presence not specified K21.9 and Joint pain M25.50 [place] [address] [address] Feb, [facility] [address] [address] Feb, [facility] [address] [facility] [id number] [address] [place] [address] Jan, Acute bacterial conjunctivit is H10.30 [facility] [address] [place] [id number] [place] [address] Dec, [facility] [address] [address] 04 Dec, 2017 [facility] [address] [id number] [place] [address] 17 Nov, 2017 [facility] [address] [address] 07 Nov, 2017 Obstructive sleep apnea G47.33 ; Morbid obesity E66.01 and Gastroesophageal reflux disease, esophagitis presence not specified K21.9 [facility] [address] [facility] [place] [id number] 06 Nov, 2017 Encounter for examination of eyes and vi ray without abnormal findings Z01.00 [place] [address] [place] [id number] [place] [address] 31 Oct, 2017 Thyroid nodule E04.1 and Screening for b reast cancer Z12.31 [place] [address] [place] [id number] [place] [address] 23 Oct, 2017 History of DVT (deep vein thrombosis) Z8 6.718 ; Thyroid nodule E04.1 and Gastroesophageal reflux disease, esophagitis presence not specified K21.9 [facility] [address] [address] Oct, [facility] [address] [address] Sep, [facility] [address] [address] Aug, [place] [address] [address] Aug, [facility] [address] [address] Aug, Acute pain of left shoulder M25.512 and Thyroid nodule E04.1 [facility] [address] [address] July, Superior glenoid labrum lesion of left s kirill, subsequent encounter S43.432D [place] [address] [address] Jun, History of DVT (deep vein thrombosis) Z8 6.718 [place] [address] [address] Jun, History of DVT (deep vein thrombosis) Z8 6.718 [place] [address] [address] Jun, Impingement syndrome, shoulder, left M75 .42 [place] [address] [address] May, Subacromial bursitis of left shoulder saurabh int M75.52 [place] [address] [address] May, [place] [address] [address] May, Hypertriglyceridemia E78.1 ; retirement ( current) use of anticoagulants Z79.01 and Excessive daytime sleepiness G47.19 [place] [address] [address] May, History of DVT (deep vein thrombosis) Z8 6.718 ; Generalized anxiety disorder F41.1 ; Hypertriglyceridemia E78.1 ; 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 ; Subacromial bursitis of left shoulder joint M75.52 and Excessive daytime sleepiness G47.19 [place] [address] [address] May, [place] [address] [address] May, retirement (current) use of anticoagulant s Z79.01 [place] [address] [address] Apr, 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 [place] [address] [address] Apr, 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 [place] [address] [address] 20 Apr, 2017 retirement (current) use of anticoagulant s Z79.01 [place] [address] [address] Apr, [place] [address] [address] Apr, retirement (current) use of anticoagulant s Z79.01 [place] [address] [address] 13 Apr, 2017 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 [place] [address] [address] Apr, 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 [place] [address] [address] Apr, 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 [place] [address] [address] Apr, 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 [place] [address] [address] Apr, retirement (current) use of anticoagulant s Z79.01 [place] [address] [address] Mar, 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 [place] [address] [address] Mar, [place] [address] [address] Mar, 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 [place] [address] [facility] [place] [id number] Jan, Dental examination Z01.20 [facility] [address] [id number] Jan, [facility] [address] [address] Jan, retirement (current) use of anticoagulant s Z79.01 [facility] [address] [address] Jan, History of DVT (deep vein thrombosis) Z8 6.718 [facility] [address] [address] Jan, Generalized anxiety disorder F41.1 and P eripheral edema R60.9 [place] [address] [address] Nov, History of DVT (deep vein thrombosis) Z8 6.718 [facility] [address] [address] Nov, retirement (current) use of anticoagulant s Z79.01 [facility] [address] [facility] [id number] [address] [place] [address] Nov, Acute non-recurrent maxillar y sinusitis J01.00 [facility] [address] [address] Oct, 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 [facility] [address] [address] Oct, Personal history of venous thrombosis an d embolism Z86.718 [place] [address] [address] Sep, [facility] [address] [address] Sep, Personal history of venous thrombosis an d embolism Z86.718 [facility] [address] [address] Sep, retirement (current) use of anticoagulant s Z79.01 [place] [address] [address] Sep, retirement (current) use of anticoagulant s Z79.01 [place] [address] [address] Sep, Generalized anxiety disorder F41.1 and H istory of DVT (deep vein thrombosis) Z86.718 [place] [address] [address] Aug, History of DVT (deep vein thrombosis) Z8 6.718 ; Generalized anxiety disorder F41.1 ; 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 ; Pelvic pain R10.2 ; Hypertriglyceridemia E78.1 ; Excessive daytime sleepiness G47.19 ; Colon cancer screening Z12.11 ; Screening for breast cancer Z12.39 ; Peripheral edema R60.9 and Gastroesophageal reflux disease, esophagitis presence not specified K21.9 [place] [address] [address] Aug, [place] [address] [address] July, [place] [address] [address] July, History of DVT (deep vein thrombosis) Z8 6.718 [place] [address] [address] Jun, Generalized anxiety disorder F41.1 [place] [address] [address] Jun, History of DVT (deep vein thrombosis) Z8 6.718 [place] [address] [address] Jun, History of DVT (deep vein thrombosis) Z8 6.718 [place] [address] [address] Jun, History of DVT (deep vein thrombosis) Z8 6.718 [facility] [address] [address] Jun, History of DVT (deep vein thrombosis) Z8 6.718 [facility] [address] [address] May, History of DVT (deep vein thrombosis) Z8 6.718 [place] [address] [address] May, 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 [place] [address] [address] May, retirement (current) use of anticoagulant s Z79.01 [place] [address] [address] May, History of DVT (deep vein thrombosis) Z8 6.718 [facility] [address] [facility] [id number] [address] [place] [address] Apr, Bacterial conjunctivitis of left eye H10.9 and H/O motion sickness Z87.898 [place] [address] [address] 24 Apr, 2016 History of DVT (deep vein thrombosis) Z8 6.718 [place] [address] [address] Apr, History of DVT (deep vein thrombosis) Z8 6.718 [place] [address] [address] 15 Apr, 2016 History of DVT (deep vein thrombosis) Z8 6.718 [place] [address] [address] 14 Apr, 2016 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 [place] [address] [address] Mar, [place] [address] [address] Mar, retirement (current) use of anticoagulant s Z79.01 [place] [address] [address] Mar, Hypertriglyceridemia E78.1 and 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 [place] [address] [address] Feb, 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 [place] [address] [address] Feb, 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 [place] [address] [address] Feb, retirement (current) use of anticoagulant s Z79.01 [place] [address] [address] Dec, [place] [address] [address] Nov, [place] [address] [address] Nov, History of DVT (deep vein thrombosis) Z8 6.718 ; Tremulousness R25.1 ; Generalized anxiety disorder F41.1 ; Peripheral edema R60.9 and Hypertriglyceridemia E78.1 [place] [address] [address] Oct, History of DVT (deep vein thrombosis) Z8 6.718 [place] [address] [address] Oct, [place] [address] [address] Sep, History of DVT (deep vein thrombosis) Z8 6.718 [place] [address] [address] Sep, 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 [place] [address] [address] July, [place] [address] [address] July, retirement (current) use of anticoagulant s Z79.01 [place] [address] [address] July, retirement (current) use of anticoagulant s Z79.01 [place] [address] [address] Jun, 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 [facility] [place] [address] [place] [id number] [place] [address] Jun, Coccyx pain M53.3 ; Encounte r for therapeutic drug level monitoring Z51.81 and retirement current use 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.01 [place] [address] [address] May, Abnormal mammogram R92.8 [facility] [address] [address] May, [facility] [place] [address] [address] May, Acute vaginitis N76.0 and En counter for other screening for malignant neoplasm of breast Z12.39 [place] [address] [address] Apr, [place] [address] [address] Apr, [place] [address] [address] Apr, Peripheral edema R60.9 [place] [address] [address] Apr, retirement (current) use of anticoagulant s Z79.01 [place] [address] [address] 18 Apr, 2015 Peripheral edema R60.9 and 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 (cu rrent) use of anticoagulants Z79.01 [place] [address] [address] Apr, retirement (current) use of anticoagulant s Z79.01 [place] [address] [address] Apr, [place] [address] [address] Apr, 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 [place] [address] [address] Apr, Peripheral edema R60.9 [place] [address] [address] Mar, retirement (current) use of anticoagulant s Z79.01 [place] [address] [address] Mar, retirement (current) use of anticoagulant s Z79.01 and Hypertriglyceridemia E78.1 [place] [address] [address] Mar, 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 [place] [address] [address] Mar, retirement (current) use of anticoagulant s Z79.01 [place] [address] [address] Mar, [place] [address] [address] Mar, retirement (current) use of anticoagulant s Z79.01 ; Hypertriglyceridemia E78.1 ; Personal history of venous thrombosis and embolism Z86.718 and Lump R22.9 [place] [address] [place] [id number] [place] [address] Mar, Personal history of venous thrombosis an d embolism Z86.718 [place] [address] [place] [id number] [place] [address] Mar, Personal history of venous thrombosis an d embolism Z86.718 [place] [address] [address] Mar, [place] [address] [address] Dec, Personal history of venous thrombosis an d embolism Z86.718 [place] [address] [address] Dec, Personal history of venous thrombosis an d embolism V12.51 [place] [address] [place] [id number] [place] [address] Nov, Personal history of venous thrombosis an d embolism V12.51 [place] [address] [place] [id number] [place] [address] Nov, Personal history of venous thrombosis an d embolism V12.51 [place] [address] [place] [id number] [place] [address] Nov, Personal history of venous thrombosis an d embolism V12.51 [place] [address] [place] [id number] [place] [address] Nov, Personal history of venous thrombosis an d embolism V12.51 [place] [address] [place] [id number] [place] [address] Nov, [place] [address] [address] Oct, Dysuria 788.1 [place] [address] [address] Oct, Personal history of venous thrombosis an d embolism V12.51 [place] [address] [address] Oct, [facility] [address] [address] [id number] [place] [address] Oct, Personal history of venous thrombosis an d embolism V12.51 [facility] [address] [place] [id number] [place] [address] Sep, Personal history of venous thrombosis an d embolism V12.51 [facility] [address] [address] Sep, Personal history of venous thrombosis an d embolism V12.51 [facility] [address] [address] Aug, Personal history of venous thrombosis an d embolism V12.51 [facility] [address] [address] Aug, Personal history of venous thrombosis an d embolism V12.51 [facility] [address] [address] Aug, Personal history of venous thrombosis an d embolism V12.51 [facility] [address] [address] [id number] [place] [address] July, Generalized anxiety disorder 300.02 ; Ab dominal pain, left lower quadrant 789.04 and Personal history of venous thrombosis and embolism V12.51 [facility] [address] [id number] [place] [address] Jun, [facility] [address] [id number] [place] [address] Jun, [facility] [address] [address] May, [facility] [address] [address] May, [facility] [address] [address] May, [facility] [address] [address] May, [facility] [address] [id number] [place] [address] May, [facility] [address] [id number] [place] [address] May, [facility] [address] [id number] [place] [address] May, [facility] [address] [id number] [place] [address] May, [facility] [address] [id number] [place] [address] Apr, [facility] [address] [id number] [place] [address] Apr, [facility] [address] [id number] [place] [address] Apr, [facility] [address] [place] [id number] [place] [address] Apr, [facility] [address] [id number] [place] [address] Apr, [facility] [address] [id number] [place] [address] Mar, [facility] [address] [id number] [place] [address] Mar, [facility] [address] [id number] [place] [address] Mar, [facility] [address] [id number] [place] [address] Mar, [facility] [address] [id number] [place] [address] Mar, [facility] [address] [id number] [place] [address] Mar, [facility] [address] [id number] [place] [address] Feb, [facility] [address] [id number] [place] [address] Feb, [facility] [address] [facility] [id number] [place] [address] Feb, [facility] [address] [id number] [place] [address] Feb, [facility] [address] [id number] [place] [address] Feb, [facility] [address] [id number] [place] [address] Feb, [facility] [address] [id number] [place] [address] Feb, [facility] [address] [id number] [place] [address] Feb, [facility] [address] [id number] [place] [address] Feb, [facility] [address] [id number] [place] [address] Feb, [facility] [address] [id number] [place] [address] Jan, [facility] [address] [id number] [place] [address] Jan, [facility] [address] [id number] [place] [address] Jan, [facility] [address] [id number] [place] [address] Jan, [facility] [address] [id number] [place] [address] Jan, [facility] [address] [id number] [place] [address] Jan, [facility] [address] [id number] [place] [address] Jan, [facility] [address] [id number] [place] [address] Jan, [facility] [address] [facility] [id number] [place] [address] Jan, [facility] [address] [facility] [id number] [place] [address] Jan, [facility] [address] [id number] [place] [address] Dec, [facility] [address] [id number] [place] [address] Dec, [facility] [address] [id number] [place] [address] Dec, [facility] [address] [id number] [place] [address] Dec, [facility] [address] [id number] [place] [address] Dec, [facility] [address] [id number] [place] [address] Dec, [facility] [address] [id number] [place] [address] Dec, [facility] [address] [id number] [place] [address] Dec, [facility] [address] [id number] [place] [address] Dec, [facility] [address] [id number] [place] [address] Dec, [facility] [address] [id number] [place] [address] Dec, [facility] [address] [id number] [place] [address] Dec, [facility] [address] [id number] [place] [address] Dec, [facility] [address] [id number] [place] [address] Dec, [facility] [address] [id number] [place] [address] Dec, [facility] [address] [id number] [place] [address] 30 Sep, 2013 [facility] [address] [id number] [place] [address] 30 Nov, 2013 [facility] [address] [id number] [place] [address] 26 Nov, 2013 [facility] [address] [id number] [place] [address] 26 Sep, 2013 [facility] [address] [facility] [id number] [place] [address] 24 Nov, 2013 [facility] [address] [id number] [place] [address] 24 Nov, 2013 [facility] [address] [id number] [place] [address] 23 Nov, 2013 [facility] [address] [id number] [place] [address] 23 Nov, 2013 [facility] [place] [facility] [address] [id number] [place] [address] 18 Nov, 2013 [facility] [place] [facility] [address] [id number] [place] [address] 18 Nov, 2013 [facility] [place] [facility] [address] [id number] [place] [address] 17 Nov, 2013 [facility] [place] [facility] [address] [id number] [place] [address] 17 Nov, 2013 [facility] [place] [facility] [address] [id number] [place] [address] 11 Nov, 2013 [facility] [place] [facility] [address] [id number] [place] [address] 11 Nov, 2013 [facility] [place] [facility] [address] [id number] [place] [address] 10 Nov, 2013 [facility] [place] [facility] [address] [id number] [place] [address] 10 Nov, 2013 [facility] [place] [facility] [address] [id number] [place] [address] 08 Nov, 2013 [facility] [place] [facility] [address] [facility] [id number] [facility] [place] [address] 08 Nov, 2013 [facility] [place] [facility] [address] [facility] [id number] [facility] [place] [address] Sep, 2013 [facility] [place] [facility] [address] [facility] [id number] [facility] [place] [address] Sep, 2013 [facility] [place] [facility] [address] [facility] [id number] [facility] [place] [address] Sep, 2013 [facility] [place] [facility] [address] [facility] [id number] [place] [address] Sep, [facility] [place] [facility] [address] [facility] [id number] [facility] [place] [address] Sep, [facility] [place] [facility] [address] [id number] [facility] [place] [address] Sep, [facility] [place] [facility] [address] [id number] [facility] [place] [address] Aug, [facility] [place] [facility] [address] [facility] [id number] [facility] [place] [address] Aug, [facility] [place] [facility] [address] [id number] [facility] [place] [address] Aug, [facility] [place] [facility] [address] [id number] [place] [address] Aug, [facility] [place] [facility] [address] [id number] [facility] [place] [address] Aug, [facility] [place] [facility] [address] [facility] [id number] [facility] [place] [address] Aug, [facility] [place] [facility] [address] [id number] [facility] [place] [address] Aug, [facility] [place] [facility] [address] [facility] [id number] [facility] [place] [address] Aug, [facility] [place] [facility] [address] [id number] [facility] [place] [address] Aug, [facility] [place] [facility] [address] [id number] [place] [address] Aug, [facility] [place] [facility] [address] [id number] [place] [address] Aug, [facility] [place] [facility] [address] [id number] [place] [address] July, [facility] [place] [facility] [address] [id number] [place] [address] July, [facility] [place] [facility] [address] [id number] [place] [address] Jun, [facility] [place] [facility] [address] [id number] [place] [address] Jun, [facility] [place] [facility] [address] [id number] [place] [address] Jun, [facility] [place] [facility] [address] [id number] [place] [address] Jun, [facility] [place] [facility] [address] [id number] [place] [address] Jun, [facility] [place] [facility] [address] [id number] [place] [address] Jun, [facility] [place] [facility] [address] [id number] [place] [address] Jun, [facility] [place] [facility] [address] [id number] [place] [address] Jun, [facility] [place] [facility] [address] [id number] [place] [address] Jun, [facility] [place] [facility] [address] [id number] [place] [address] 11 Jun, 2013 [facility] [place] [facility] [address] [id number] [place] [address] Jun, [facility] [place] [facility] [address] [id number] [place] [address] Jun, [facility] [place] [facility] [address] [id number] [place] [address] May, [facility] [place] [facility] [address] [facility] [id number] [place] [address] May, [facility] [place] [facility] [address] [facility] [id number] [facility] [place] [address] May, [facility] [place] [facility] [address] [id number] [place] [address] May, [facility] [place] [facility] [address] [id number] [facility] [place] [address] May, [facility] [place] [facility] [address] [facility] [id number] [facility] [place] [address] May, [facility] [place] [facility] [address] [id number] [place] [address] May, [facility] [place] [facility] [address] [id number] [place] [address] May, [facility] [place] [facility] [address] [id number] [place] [address] May, [facility] [place] [facility] [address] [id number] [facility] [address] May, [facility] [place] [facility] [address] [id number] [place] [address] May, [facility] [place] [facility] [address] [id number] [place] [address] May, [facility] [place] [facility] [address] [id number] [place] [address] Apr, [facility] [place] [facility] [address] [id number] [place] [address] Apr, [facility] [place] [facility] [address] [id number] [place] [address] Apr, [facility] [place] [facility] [address] [id number] [place] [address] Apr, [facility] [place] [facility] [address] [id number] [place] [address] Apr, [facility] [place] [facility] [address] [id number] [place] [address] Apr, [facility] [place] [facility] [address] [id number] [place] [address] Apr, [facility] [place] [facility] [address] [id number] [place] [address] Apr, [facility] [place] [facility] [address] [id number] [place] [address] Apr, [facility] [place] [facility] [address] [id number] [place] [address] Apr, [facility] [place] [facility] [address] [id number] [place] [address] Apr, [facility] [place] [facility] [address] [id number] [place] [address] Apr, [facility] [place] [facility] [address] [id number] [place] [address] Apr, [facility] [place] [facility] [address] [id number] [place] [address] Apr, [facility] [place] [facility] [address] [id number] [place] [address] Apr, [facility] [place] [facility] [address] [id number] [place] [address] Apr, [facility] [place] [facility] [address] [id number] [place] [address] Apr, [facility] [place] [facility] [address] [id number] [place] [address] Jan, [facility] [place] [facility] [address] [id number] [place] [address] Jan, [facility] [place] [facility] [address] [id number] [place] [address] Jan, [facility] [place] [facility] [address] [id number] [place] [address] Jan, [facility] [place] [facility] [address] [id number] [place] [address] Jan, [facility] [place] [facility] [address] [id number] [place] [address] Jan, [facility] [place] [facility] [address] [id number] [place] [address] Jan, [facility] [place] [facility] [address] [id number] [place] [address] Dec, [facility] [place] [facility] [address] [id number] [place] [address] Dec, [facility] [place] [facility] [address] [id number] [place] [address] Dec, [facility] [place] [facility] [address] [id number] [place] [address] Nov, [facility] [place] [facility] [address] [id number] [place] [address] Nov, [facility] [place] [facility] [address] [id number] [place] [address] 05 Nov, 2012 [facility] [place] [facility] [address] [id number] [place] [address] Nov, [facility] [place] [facility] [address] [id number] [place] [address] Oct, [facility] [place] [facility] [address] [id number] [place] [address] Oct, [facility] [place] [facility] [address] [id number] [place] [address] Oct, [facility] [place] [facility] [address] [id number] [place] [address] Oct, [facility] [place] [facility] [address] [id number] [place] [address] Oct, [facility] [place] [facility] [address] [id number] [place] [address] Sep, [facility] [place] [facility] [address] [id number] [place] [address] Sep, [facility] [place] [facility] [address] [id number] [facility] [place] [address] Sep, [facility] [place] [facility] [address] [id number] [facility] [place] [address] Sep, [facility] [place] [facility] [address] [id number] [facility] [place] [address] Sep, [facility] [place] [facility] [address] [id number] [place] [address] Sep, [facility] [place] [facility] [address] [id number] [place] [address] Sep, [facility] [place] [facility] [address] [facility] [id number] [facility] [place] [address] Aug, [facility] [place] [facility] [address] [id number] [place] [address] Aug, [facility] [place] [facility] [address] [id number] [place] [address] July, [facility] [place] [facility] [address] [id number] [place] [address] Jun, [facility] [place] [facility] [address] [id number] [facility] [place] [address] Jun, [facility] [place] [facility] [address] [id number] [place] [address] Jun, [facility] [place] [facility] [address] [id number] [place] [address] Apr, [facility] [place] [facility] [address] [id number] [place] [address] Apr, [facility] [place] [facility] [address] [id number] [place] [address] Apr, [facility] [place] [facility] [address] [id number] [place] [address] Mar, [facility] [place] [facility] [address] [id number] [place] [address] Mar, [facility] [place] [facility] [address] [id number] [place] [address] Mar, [facility] [place] [facility] [address] [id number] [place] [address] Mar, [facility] [place] [facility] [address] [id number] [place] [address] Mar, [facility] [place] [facility] [address] [id number] [place] [address] 14 Feb, 2012 [facility] [place] [facility] [address] [id number] [place] [address] 14 Feb, 2012 [facility] [place] [facility] [address] [id number] [place] [address] Jan, [facility] [place] [facility] [address] [id number] [place] [address] Jan, [facility] [place] [facility] [address] [id number] [place] [address] Jan, [facility] [place] [facility] [id number] [place] [address] Jan, [facility] [place] [facility] [address] [id number] [place] [address] Jan, [facility] [place] [facility] [address] [id number] [place] [address] Jan, [facility] [place] [facility] [address] [id number] [place] [address] 06 Jan, 2012 [facility] [place] [facility] [address] [id number] [place] [address] Dec, [facility] [place] [facility] [address] [id number] [place] [address] 31 Dec, 2011 [facility] [place] [facility] [address] [id number] [place] [address] 30 Dec, 2011 [facility] [place] [facility] [address] [id number] [place] [address] 30 Dec, 2011 [facility] [place] [facility] [address] [id number] [place] [address] 30 Dec, 2011 [facility] [place] [facility] [address] [id number] [place] [address] Dec, [facility] [place] [facility] [address] [facility] [id number] [place] [address] Dec, [facility] [place] [facility] [address] [id number] [place] [address] Dec, [facility] [place] [facility] [address] [id number] [place] [address] Dec, [facility] [place] [facility] [address] [id number] [place] [address] Dec, [facility] [place] [facility] [address] [id number] [place] [address] Oct, [facility] [place] [facility] [address] [id number] [place] [address] Oct, [facility] [place] [facility] [address] [id number] [place] [address] Aug, [facility] [place] [facility] [address] [id number] [place] [address] Aug, [facility] [place] [facility] [address] [id number] [place] [address] July, [facility] [place] [facility] [address] [id number] [place] [address] Jun, [facility] [place] [facility] [address] [id number] [place] [address] Jun, [facility] [place] [facility] [address] [id number] [place] [address] May, [facility] [place] [facility] [address] [id number] [place] [address] Apr, [facility] [place] [facility] [address] [id number] [place] [address] Apr, [facility] [place] [facility] [address] [id number] [place] [address] Mar, [facility] [place] [facility] [address] [id number] [place] [address] Mar, [facility] [place] [facility] [address] [id number] [place] [address] 19 Feb, 2011 [facility] [place] [facility] [address] [id number] [place] [address] 15 Feb, 2011 [facility] [place] [facility] [address] [id number] [place] [address] 13 Feb, 2011 [facility] [place] [facility] [address] [id number] [place] [address] 13 Feb, 2011 [facility] [place] [facility] [address] [id number] [place] [address] 11 Jan, 2011 [facility] [place] [facility] [address] [id number] [place] [address] 17 Dec, 2010 [facility] [place] [facility] [address] [id number] [place] [address] 08 Feb, 2010 [facility] [place] [facility] [address] [id number] [place] [address] 02 Feb, 2010 [facility] [place] [facility] [address] [id number] [place] [address] Feb, [facility] [place] [facility] [address] [id number] [place] [address] Feb, [facility] [place] [facility] [address] [id number] [place] [address] 15 Dec, 2009 [facility] [place] [facility] [address] [id number] [place] [address] 15 Dec, 2009 [facility] [place] [facility] [address] [id number] [place] [address] 10 Oct, 2009 [facility] [place] [facility] [address] [id number] [place] [address] 15 Jun, 2009 [facility] [place] [facility] [address] [id number] [place] [address] Feb, [facility] [place] [facility] [address] [id number] [place] [address] 18 Feb, 2008 [facility] [place] [facility] [address] [id number] [place] [address] Feb, [facility] [address] [facility] [id number] [place] [address] Dec, IMMUNIZATIONS No Known Immunizations SOCIAL HISTORY Never Assessed REASON FOR VISIT PLAN OF CARE VITAL SIGNS Height 64 in 2013-10-07 Weight 187.2 lbs 2013-10-07 Temperature 99.4 degrees Fahrenheit 2013-10-07 Heart Rate 82 bpm 2013-10-07 Respiratory Rate 18 2013-10-07 Blood pressure systolic 122 mmHg 2013-10-07 Blood pressure diastolic 70 mmHg 2013-10-07 MEDICATIONS Unknown Medications RESULTS No Results PROCEDURES No Known procedures INSTRUCTIONS MEDICATIONS ADMINISTERED No Known Medications MEDICAL (GENERAL) HISTORY Type Description Date Medical History obesity Medical History Hematologic disorder factor clotting pro blem Medical History DVT's Medical History Torn Rotator Cuff, repaired 09/23/17 Surgical History Lap Band 10/2012 Surgical History section 1985, 1987 Surgical History cholecystectomy Surgical History [place] Filter 06/2009 Surgical History Left leg exploratory surgery r/t clot 19 Surgical History left shoulder surgery 09/14/17 Surgical History lap band removed 12/2017 Surgical History gastic sleeve 01/2018 Surgical History Back surgery 2018 Hospitalization History Ruptured Ovarian Cyst with abd bleed ing 11/2009 Hospitalization History Broken Back 06/2018
--- OUTSIDE RECORDS SUMMARY | 2019-10-19 12:56 | XMS REPORT ---
Author Author Mary Jane Das Organization [facility] Address [address] [place] [address] Care Team Providers Care Allopathic Doctor Name Role Phone LOVE Das Unavailable PROBLEMS Type Condition ICD9-CM Code MHZ20-LH Code Onset Dates Condition S tatus SNOMED Code Problem Thyroid follicular adenoma D34 Act phylicia 154404773 Problem History of DVT (deep vein thrombosis) Z86.718 Active 726727107 Problem Factor V Leiden D68.51 Active 3070 48338 Problem assisted (current) use of anticoagulants Z79.01 Active 313263971 Problem Hypertriglyceridemia E78.1 Active 385900023 Problem 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 Active 999312329 Problem Pelvic pain R10.2 Active 21964306 Problem Peripheral edema R60.9 Active 271 571516 Problem Moderate episode of recurrent major depressive disorder F33.1 Active 974127737 Problem Presence of IVC filter Z95.828 Active 340855391 Problem Vitamin D deficiency E55.9 Active 75940919 Problem Generalized anxiety disorder F41.1 A ctive 268195695 Problem Excessive daytime sleepiness G47.19 A ctive 716846048824 Problem Gastroesophageal reflux disease, esophagitis pre sence not specified K21.9 Active 820605870 Problem Thyroid nodule E04.1 Active 63015 5005 Problem Morbid obesity E66.01 Active 45461 6002 ALLERGIES No Information ENCOUNTERS Encounter Location Date Diagnosis [facility] [address] [id number] [place] [address] Jan, [facility] [address] [id number] [place] [address] Jan, [facility] [address] [id number] [place] [address] Dec, Encounter for weight management Z76.89 [facility] [address] [address] Dec, Encounter for weight management Z76.89 a nd Screening mammogram, encounter for Z12.31 [place] [address] [address] Nov, Encounter for weight management Z76.89 [place] [address] [address] Nov, Thyroid nodule E04.1 [place] [address] [address] Nov, Thyroid nodule E04.1 [place] [address] [address] Nov, Thyroid nodule E04.1 [place] [address] [address] Oct, Syncope, unspecified syncope type R55 an d Encounter for weight management Z76.89 [place] [address] [address] Oct, Morbid obesity E66.01 [place] [address] [address] Oct, Hypertriglyceridemia E78.1 [place] [address] [address] Oct, [place] [address] [address] Oct, Hypertriglyceridemia E78.1 [place] [address] [address] Sep, Hypertriglyceridemia E78.1 and Vitamin D deficiency E55.9 [place] [address] [address] Sep, [place] [address] [address] Sep, Morbid obesity E66.01 ; Moderate episode of recurrent major depressive disorder F33.1 ; Hypertriglyceridemia E78.1 and Vitamin D deficiency E55.9 [place] [address] [address] Aug, [place] [address] [address] July, [facility] [address] [address] July, [place] [address] [address] Jun, [place] [address] [address] Jun, [place] [address] [address] Jun, Closed compression fracture of L3 lumbar vertebra with routine healing, subsequent encounter S32.030D and Drug-induced constipation K59.03 [place] [address] [address] Jun, [place] [address] [address] Jun, [place] [address] [address] Apr, [place] [address] [address] Apr, Morbid obesity E66.01 [place] [address] [address] Apr, Morbid obesity E66.01 ; Hypertriglycerid emia E78.1 ; Gastroesophageal reflux disease, esophagitis presence not specified K21.9 and Joint pain M25.50 [place] [address] [address] Feb, [place] [address] [address] Feb, [facility] [address] [facility] [id number] [place] [address] Jan, Acute bacterial conjunctivit is H10.30 [facility] [address] [place] [id number] [place] [address] Dec, [facility] [address] [address] Dec, [facility] [address] [place] [id number] [place] [address] 17 Nov, 2017 [facility] [address] [address] 07 Nov, 2017 Obstructive sleep apnea G47.33 ; Morbid obesity E66.01 and Gastroesophageal reflux disease, esophagitis presence not specified K21.9 [facility] [address] [id number] [place] [id number] 06 Nov, 2017 Encounter for examination of eyes and vi ray without abnormal findings Z01.00 [place] [address] [place] [id number] [place] [address] Oct, Thyroid nodule E04.1 and Screening for b reast cancer Z12.31 [facility] [address] [place] [id number] [place] [address] Oct, History of DVT (deep vein thrombosis) Z8 6.718 ; Thyroid nodule E04.1 and Gastroesophageal reflux disease, esophagitis presence not specified K21.9 [facility] [address] [address] Oct, [facility] [address] [address] Sep, [facility] [address] [address] Aug, [facility] [address] [address] Aug, [facility] [address] [address] Aug, Acute pain of left shoulder M25.512 and Thyroid nodule E04.1 [facility] [address] [address] July, Superior glenoid labrum lesion of left s kirill, subsequent encounter S43.432D [place] [address] [address] Jun, History of DVT (deep vein thrombosis) Z8 6.718 [place] [address] [address] Jun, History of DVT (deep vein thrombosis) Z8 6.718 [place] [address] [address] Jun, Impingement syndrome, shoulder, left M75 .42 [place] [address] [address] May, Subacromial bursitis of left shoulder saurabh int M75.52 [place] [address] [address] May, [place] [address] [address] May, Hypertriglyceridemia E78.1 ; assisted ( current) use of anticoagulants Z79.01 and Excessive daytime sleepiness G47.19 [place] [address] [address] May, History of DVT (deep vein thrombosis) Z8 6.718 ; Generalized anxiety disorder F41.1 ; Hypertriglyceridemia E78.1 ; assisted (current) use of anticoagulants Z79.01 ; Subacromial bursitis of left shoulder joint M75.52 and Excessive daytime sleepiness G47.19 [place] [address] [address] May, [place] [address] [address] May, 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 [place] [address] [address] Apr, 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 [place] [address] [address] Apr, assisted (current) use of anticoagulant s Z79.01 [place] [address] [address] 20 Apr, 2017 assisted (current) use of anticoagulant s Z79.01 [place] [address] [address] Apr, [place] [address] [address] Apr, 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 [place] [address] [address] 13 Apr, 2017 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 [place] [address] [address] Apr, 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 [place] [address] [address] Apr, 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 [place] [address] [address] 07 Apr, 2017 assisted (current) use of anticoagulant s Z79.01 [place] [address] [address] Apr, 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 [place] [address] [address] Mar, 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 [place] [address] [address] Mar, [place] [address] [address] Mar, 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 [facility] [address] [id number] [place] [id number] Jan, Dental examination Z01.20 [facility] [address] [id number] Jan, [facility] [address] [address] Jan, assisted (current) use of anticoagulant s Z79.01 [facility] [address] [address] Jan, History of DVT (deep vein thrombosis) Z8 6.718 [facility] [address] [address] Jan, Generalized anxiety disorder F41.1 and P eripheral edema R60.9 [facility] [address] [address] Nov, History of DVT (deep vein thrombosis) Z8 6.718 [facility] [address] [address] Nov, 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 [facility] [address] [address] Oct, Personal history of venous thrombosis an d embolism Z86.718 [facility] [address] [address] Sep, [facility] [address] [address] Sep, Personal history of venous thrombosis an d embolism Z86.718 [facility] [address] [address] Sep, assisted (current) use of anticoagulant s Z79.01 [place] [address] [address] Sep, assisted (current) use of anticoagulant s Z79.01 [place] [address] [address] Sep, Generalized anxiety disorder F41.1 and H istory of DVT (deep vein thrombosis) Z86.718 [place] [address] [address] Aug, History of DVT (deep vein thrombosis) Z8 6.718 ; Generalized anxiety disorder F41.1 ; assisted (current) use of anticoagulants Z79.01 ; Pelvic pain R10.2 ; Hypertriglyceridemia E78.1 ; Excessive daytime sleepiness G47.19 ; Colon cancer screening Z12.11 ; Screening for breast cancer Z12.39 ; Peripheral edema R60.9 and Gastroesophageal reflux disease, esophagitis presence not specified K21.9 [place] [address] [address] Aug, [place] [address] [address] July, [place] [address] [address] July, History of DVT (deep vein thrombosis) Z8 6.718 [place] [address] [address] Jun, Generalized anxiety disorder F41.1 [place] [address] [address] Jun, History of DVT (deep vein thrombosis) Z8 6.718 [place] [address] [address] Jun, History of DVT (deep vein thrombosis) Z8 6.718 [place] [address] [address] Jun, History of DVT (deep vein thrombosis) Z8 6.718 [facility] [address] [address] Jun, History of DVT (deep vein thrombosis) Z8 6.718 [facility] [address] [address] May, History of DVT (deep vein thrombosis) Z8 6.718 [place] [address] [address] May, 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 [id number] [address] [place] [address] 27 Apr, 2016 Bacterial conjunctivitis of left eye H10.9 and H/O motion sickness Z87.898 [place] [address] [address] 24 Apr, 2016 History of DVT (deep vein thrombosis) Z8 6.718 [place] [address] [address] 23 Apr, 2016 History of DVT (deep vein thrombosis) Z8 6.718 [place] [address] [address] 15 Apr, 2016 History of DVT (deep vein thrombosis) Z8 6.718 [facility] [address] [address] 14 Apr, 2016 assisted (current) use of anticoagulant s Z79.01 [place] [address] [address] Mar, [place] [address] [address] Mar, assisted (current) use of anticoagulant s Z79.01 [place] [address] [address] Mar, Hypertriglyceridemia E78.1 and 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 [place] [address] [address] Feb, 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 [place] [address] [address] Feb, 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 [place] [address] [address] Feb, 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 [place] [address] [address] Dec, [place] [address] [address] Nov, [place] [address] [address] Nov, History of DVT (deep vein thrombosis) Z8 6.718 ; Tremulousness R25.1 ; Generalized anxiety disorder F41.1 ; Peripheral edema R60.9 and Hypertriglyceridemia E78.1 [place] [address] [address] Oct, History of DVT (deep vein thrombosis) Z8 6.718 [place] [address] [address] Oct, [place] [address] [address] Sep, History of DVT (deep vein thrombosis) Z8 6.718 [place] [address] [address] Sep, assisted (current) use of anticoagulant s Z79.01 [place] [address] [address] July, [place] [address] [address] July, assisted (current) use of anticoagulant s Z79.01 [place] [address] [address] July, 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 [address] [place] [id number] [place] [address] Jun, Coccyx pain M53.3 ; Encounte r for therapeutic drug level monitoring Z51.81 and assisted current use 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.01 [place] [address] [address] May, Abnormal mammogram R92.8 [facility] [place] [address] [address] May, [facility] [address] [address] May, Acute vaginitis N76.0 and En counter for other screening for malignant neoplasm of breast Z12.39 [place] [address] [address] Apr, [place] [address] [address] Apr, [place] [address] [address] Apr, Peripheral edema R60.9 [place] [address] [address] Apr, assisted (current) use of anticoagulant s Z79.01 [place] [address] [address] Apr, Peripheral edema R60.9 and 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 (cu rrent) use of anticoagulants Z79.01 [place] [address] [address] Apr, assisted (current) use of anticoagulant s Z79.01 [place] [address] [address] Apr, [place] [address] [address] Apr, 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 [place] [address] [address] Apr, Peripheral edema R60.9 [place] [address] [address] Mar, 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 [place] [address] [address] Mar, 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 and Hypertriglyceridemia E78.1 [place] [address] [address] Mar, assisted (current) use of anticoagulant s Z79.01 [place] [address] [address] Mar, 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 [place] [address] [address] Mar, [place] [address] [address] Mar, 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 ; Hypertriglyceridemia E78.1 ; Personal history of venous thrombosis and embolism Z86.718 and Lump R22.9 [place] [address] [address] Mar, Personal history of venous thrombosis an d embolism Z86.718 [place] [address] [address] Mar, Personal history of venous thrombosis an d embolism Z86.718 [place] [address] [address] Mar, [place] [address] [address] Dec, Personal history of venous thrombosis an d embolism Z86.718 [place] [address] [address] Dec, Personal history of venous thrombosis an d embolism V12.51 [place] [address] [address] Nov, Personal history of venous thrombosis an d embolism V12.51 [place] [address] [address] Nov, Personal history of venous thrombosis an d embolism V12.51 [place] [address] [address] Nov, Personal history of venous thrombosis an d embolism V12.51 [place] [address] [address] Nov, Personal history of venous thrombosis an d embolism V12.51 [place] [address] [address] Nov, [place] [address] [address] Oct, Dysuria 788.1 [place] [address] [address] Oct, Personal history of venous thrombosis an d embolism V12.51 [place] [address] [address] Oct, [facility] [address] [place] [id number] [place] [address] Oct, Personal history of venous thrombosis an d embolism V12.51 [facility] [address] [place] [id number] [place] [address] Sep, Personal history of venous thrombosis an d embolism V12.51 [facility] [address] [address] Sep, Personal history of venous thrombosis an d embolism V12.51 [facility] [address] [address] Aug, Personal history of venous thrombosis an d embolism V12.51 [facility] [address] [address] Aug, Personal history of venous thrombosis an d embolism V12.51 [facility] [address] [address] Aug, Personal history of venous thrombosis an d embolism V12.51 [facility] [address] [place] [id number] [place] [address] July, Generalized anxiety disorder 300.02 ; Ab dominal pain, left lower quadrant 789.04 and Personal history of venous thrombosis and embolism V12.51 [facility] [address] [place] [id number] [place] [address] Jun, [facility] [address] [place] [id number] [place] [address] Jun, [facility] [address] [place] [id number] [place] [address] May, [facility] [address] [address] May, [facility] [address] [place] [id number] [place] [address] May, [facility] [address] [address] May, [facility] [address] [facility] [id number] [place] [address] May, [facility] [address] [facility] [id number] [place] [address] May, [facility] [address] [facility] [id number] [place] [address] May, [facility] [address] [id number] [place] [address] May, [facility] [address] [facility] [id number] [place] [address] Apr, [facility] [address] [id number] [place] [address] Apr, [facility] [address] [id number] [place] [address] Apr, [facility] [address] [id number] [place] [address] Apr, [facility] [address] [id number] [place] [address] Apr, [facility] [address] [id number] [place] [address] Mar, [facility] [address] [id number] [place] [address] Mar, [facility] [address] [id number] [place] [address] Mar, [facility] [address] [id number] [place] [address] Mar, [facility] [address] [id number] [place] [address] Mar, [facility] [address] [id number] [place] [address] Mar, [facility] [address] [id number] [place] [address] Feb, [facility] [address] [id number] [place] [address] 17 Feb, 2014 [facility] [address] [id number] [place] [address] Feb, [facility] [address] [id number] [place] [address] Feb, [facility] [address] [id number] [place] [address] Feb, [facility] [address] [id number] [place] [address] Feb, [facility] [address] [id number] [place] [address] Feb, [facility] [address] [id number] [place] [address] Feb, [facility] [address] [id number] [place] [address] Feb, [facility] [address] [id number] [place] [address] Feb, [facility] [address] [id number] [place] [address] Jan, [facility] [address] [id number] [place] [address] Jan, [facility] [address] [id number] [place] [address] Jan, [facility] [address] [id number] [place] [address] Jan, [facility] [address] [id number] [place] [address] Jan, [facility] [address] [place] [id number] [place] [address] Jan, [facility] [address] [id number] [place] [address] Jan, [facility] [address] [id number] [place] [address] Jan, [facility] [address] [facility] [id number] [place] [address] Jan, 2013 [facility] [address] [facility] [id number] [place] [address] Jan, [facility] [address] [id number] [place] [address] Dec, [facility] [address] [id number] [place] [address] Dec, [facility] [address] [facility] [id number] [place] [address] Dec, [facility] [address] [id number] [place] [address] Dec, [facility] [address] [id number] [place] [address] Dec, [facility] [address] [id number] [place] [address] Dec, [facility] [address] [id number] [place] [address] Dec, [facility] [address] [id number] [place] [address] Dec, [facility] [address] [id number] [place] [address] Dec, [facility] [address] [id number] [place] [address] Dec, [facility] [address] [id number] [place] [address] Dec, [facility] [address] [facility] [id number] [place] [address] Dec, [facility] [address] [address] [id number] [place] [address] Dec, [facility] [address] [id number] [place] [address] Dec, [facility] [address] [id number] [place] [address] Dec, [facility] [address] [facility] [id number] [place] [address] 30 Nov, 2013 [facility] [address] [facility] [id number] [place] [address] 30 Nov, 2013 [facility] [address] [id number] [place] [address] 26 Nov, 2013 [facility] [address] [id number] [place] [address] 26 Nov, 2013 [facility] [address] [facility] [id number] [place] [address] 24 Nov, 2013 [facility] [address] [id number] [place] [address] 24 Nov, 2013 [facility] [address] [id number] [place] [address] 23 Nov, 2013 [facility] [address] [id number] [place] [address] 23 Nov, 2013 [facility] [address] [id number] [place] [address] 18 Nov, 2013 [facility] [address] [id number] [place] [address] 18 Nov, 2013 [facility] [address] [id number] [place] [address] 17 Nov, 2013 [facility] [address] [id number] [place] [address] 17 Nov, 2013 [facility] [address] [id number] [place] [address] 11 Nov, 2013 [facility] [address] [id number] [place] [address] 11 Nov, 2013 [facility] [address] [id number] [place] [address] 10 Nov, 2013 [facility] [address] [id number] [place] [address] 10 Nov, 2013 [facility] [address] [id number] [place] [address] 08 Nov, 2013 [facility] [address] [facility] [id number] [place] [address] 08 Nov, 2013 [facility] [address] [facility] [id number] [place] [address] Sep, [facility] [address] [id number] [place] [address] Sep, 2013 [facility] [address] [facility] [id number] [place] [address] Sep, 2013 [facility] [address] [facility] [id number] [place] [address] Sep, [facility] [address] [id number] [place] [address] Sep, [facility] [address] [id number] [place] [address] Sep, [facility] [address] [id number] [place] [address] Aug, [facility] [address] [facility] [id number] [place] [address] Aug, [facility] [address] [id number] [place] [address] Aug, [facility] [address] [id number] [place] [address] Aug, [facility] [address] [id number] [place] [address] Aug, [facility] [address] [facility] [id number] [place] [address] Aug, [facility] [address] [id number] [place] [address] Aug, [facility] [address] [id number] [place] [address] Aug, [facility] [address] [id number] [place] [address] Aug, [facility] [address] [facility] [id number] [place] [address] Aug, [facility] [address] [facility] [id number] [place] [address] Aug, [facility] [address] [facility] [id number] [place] [address] July, [facility] [address] [id number] [place] [address] July, [facility] [address] [facility] [id number] [place] [address] Jun, [facility] [address] [id number] [place] [address] Jun, [facility] [address] [id number] [place] [address] Jun, [facility] [address] [id number] [place] [address] Jun, [facility] [address] [id number] [place] [address] Jun, [facility] [address] [id number] [place] [address] Jun, [facility] [address] [id number] [place] [address] 15 Jun, 2013 [facility] [address] [id number] [place] [address] 15 Jun, 2013 [facility] [address] [id number] [place] [address] Jun, [facility] [address] [facility] [id number] [place] [address] 11 Jun, 2013 [facility] [address] [id number] [place] [address] 10 Jun, 2013 [facility] [address] [id number] [place] [address] Jun, [facility] [address] [id number] [place] [address] May, [facility] [address] [id number] [place] [address] May, [facility] [address] [id number] [place] [address] May, [facility] [address] [id number] [place] [address] May, [facility] [address] [id number] [place] [address] May, [facility] [address] [id number] [place] [address] May, [facility] [address] [id number] [place] [address] May, [facility] [address] [id number] [place] [address] May, [facility] [address] [id number] [place] [address] May, [facility] [address] [id number] [place] [address] May, [facility] [address] [id number] [place] [address] May, [facility] [address] [id number] [place] [address] May, [facility] [address] [id number] [place] [address] Apr, [facility] [address] [id number] [place] [address] Apr, [facility] [address] [id number] [place] [address] Apr, [facility] [address] [id number] [place] [address] Apr, [facility] [address] [id number] [place] [address] Apr, [facility] [address] [id number] [place] [address] Apr, [facility] [address] [id number] [place] [address] Apr, [facility] [address] [id number] [place] [address] Apr, [facility] [address] [id number] [place] [address] Apr, [facility] [address] [id number] [place] [address] Apr, [facility] [address] [id number] [place] [address] Apr, [facility] [address] [id number] [place] [address] Apr, [facility] [address] [id number] [place] [address] Apr, [facility] [address] [id number] [place] [address] Apr, [facility] [address] [id number] [place] [address] Apr, [facility] [address] [id number] [place] [address] Apr, [facility] [address] [id number] [place] [address] Apr, [facility] [address] [id number] [place] [address] Jan, [facility] [address] [id number] [place] [address] Jan, [facility] [address] [id number] [place] [address] Jan, [facility] [address] [id number] [place] [address] Jan, [facility] [address] [id number] [place] [address] 07 Jan, 2013 [facility] [address] [id number] [place] [address] Jan, [facility] [address] [id number] [place] [address] Jan, [facility] [address] [id number] [place] [address] Dec, [facility] [address] [id number] [place] [address] Dec, [facility] [address] [id number] [place] [address] Dec, [facility] [address] [id number] [place] [address] Nov, [facility] [address] [id number] [place] [address] Nov, [facility] [address] [id number] [place] [address] Nov, [facility] [address] [id number] [place] [address] Nov, [facility] [address] [id number] [place] [address] Oct, [facility] [address] [id number] [place] [address] Oct, [facility] [address] [id number] [place] [address] Oct, [facility] [address] [id number] [place] [address] Oct, [facility] [address] [id number] [place] [address] Oct, [facility] [address] [id number] [place] [address] Sep, [facility] [address] [id number] [place] [address] Sep, [facility] [address] [id number] [place] [address] Sep, [facility] [address] [id number] [place] [address] Sep, [facility] [address] [id number] [place] [address] Sep, [facility] [address] [id number] [place] [address] Sep, [facility] [address] [id number] [place] [address] Sep, [facility] [address] [id number] [place] [address] Aug, [facility] [address] [id number] [place] [address] Aug, [facility] [address] [id number] [place] [address] July, [facility] [address] [id number] [place] [address] Jun, [facility] [address] [id number] [place] [address] Jun, [facility] [address] [id number] [place] [address] Jun, [facility] [address] [id number] [place] [address] Apr, [facility] [address] [id number] [place] [address] Apr, [facility] [address] [id number] [place] [address] Apr, [facility] [address] [id number] [place] [address] Mar, [facility] [address] [id number] [place] [address] Mar, [facility] [address] [id number] [place] [address] 2012 [facility] [address] [id number] [place] [address] Mar, [facility] [address] [id number] [place] [address] Mar, [facility] [address] [id number] [place] [address] 14 Feb, 2012 [facility] [address] [id number] [place] [address] 14 Feb, 2012 [facility] [address] [id number] [place] [address] Jan, [facility] [address] [id number] [place] [address] Jan, [facility] [address] [id number] [place] [address] Jan, [facility] [address] [id number] [place] [address] Jan, [facility] [address] [id number] [place] [address] Jan, [facility] [address] [id number] [place] [address] Jan, [facility] [address] [id number] [place] [address] 06 Jan, 2012 [facility] [address] [id number] [place] [address] Dec, [facility] [address] [id number] [place] [address] Dec, [facility] [address] [id number] [place] [address] 30 Dec, 2011 [facility] [address] [id number] [place] [address] 30 Dec, 2011 [facility] [address] [id number] [place] [address] 30 Dec, 2011 [facility] [address] [id number] [place] [address] Dec, [facility] [address] [id number] [place] [address] Dec, [facility] [address] [id number] [place] [address] Dec, [facility] [address] [id number] [place] [address] Dec, [facility] [address] [id number] [place] [address] Dec, [facility] [address] [id number] [place] [address] Oct, [facility] [address] [id number] [place] [address] Oct, [facility] [address] [id number] [place] [address] Aug, [facility] [address] [id number] [place] [address] Aug, [facility] [address] [id number] [place] [address] July, [facility] [address] [id number] [place] [address] Jun, [facility] [address] [id number] [place] [address] Jun, [facility] [address] [id number] [place] [address] May, [facility] [address] [id number] [place] [address] Apr, [facility] [address] [id number] [place] [address] Apr, [facility] [address] [id number] [place] [address] Mar, [facility] [address] [id number] [place] [address] Mar, [facility] [address] [id number] [place] [address] 19 Feb, 2011 [facility] [address] [id number] [place] [address] 15 Feb, 2011 [facility] [address] [id number] [place] [address] 13 Feb, 2011 [facility] [address] [id number] [place] [address] 13 Feb, 2011 [facility] [address] [id number] [place] [address] Jan, [facility] [address] [id number] [place] [address] 17 Dec, 2010 [facility] [address] [id number] [place] [address] 08 Feb, 2010 [facility] [id number] [place] [address] 02 Feb, 2010 [facility] [address] [id number] [place] [address] Feb, [facility] [address] [id number] [place] [address] Feb, [facility] [address] [id number] [place] [address] 15 Dec, 2009 [facility] [address] [id number] [place] [address] 15 Dec, 2009 [facility] [address] [id number] [place] [address] Oct, [facility] [address] [id number] [place] [address] 15 Jun, 2009 [facility] [address] [id number] [place] [address] Feb, [facility] [address] [id number] [place] [address] 18 Feb, 2008 [facility] [address] [id number] [place] [address] Feb, [facility] [address] [facility] [id number] [place] [address] Dec, IMMUNIZATIONS No Known Immunizations SOCIAL HISTORY [...]
--- OUTSIDE RECORDS SUMMARY | 2019-10-19 12:59 | XMS REPORT | Continuity of Care Document ---
Demographics Preferred Language Unknown Marital Status Unknown Cheondoism Affiliation Unknown Race Unknown Ethnic Group Unknown Author Organization Unknown Address Unknown Phone Unavailable Allergies Active Description Code Type Severity Reaction Onset Reported/Identified Relationship to Patient Clinical Status Yes OXYCODONE-ACETAMINOPHEN SEVERE ITCHING Yes OXYCODONE-ACETAMINOPHEN SEVERE SEVERE Yes No Known Drug Allergies [id number] Drug Allergy Unknown N/A 10/12/2019 Medications Medication Packaging Start Date St op Date Route Dosage Sig LACTATED RINGERS 1000CC IV BAG INJ ml 04/23/2018 04/30/2018 CONTINUOUSEVERY 0 Hour LACTATED RINGERS 1000CC IV BAG INJ ml 06/23/2018 06/30/2018 CONTINUOUSEVERY 0 Hour CEFAZOLIN VIAL INJ 1 GM (ANCEF) GM 06/25/2018 06/25/2018 ONCE&1215 FENTANYL INJ 100 MCG/2CC VIAL MCG 06/25/2018 06/25/2018 ONCE&1428 FENTANYL INJ 100 MCG/2CC VIAL MCG 06/25/2018 06/25/2018 ONCE&1438 FENTANYL INJ 100 MCG/2CC VIAL MCG 06/25/2018 06/25/2018 ONCE&1527 LACTATED RINGERS 1000CC IV BAG INJ ml 06/25/2018 07/02/2018 CONTINUOUSEVERY 0 Hour Morphine IV cartridge 4mg/cc MG 06/25/2018 07/02/2018 PRN Q2H MORPHINE SYRINGE INJ 2 MG/CC MG 06/25/2018 07/02/2018 PRN Q2H POLY/BACI/NEOM OINT OINT (NEOSPORIN) mo 06/25/2018 07/02/2018 PRN Q4H ONDANSETRON VIAL INJ 4 MG/2CC (ZOFRAN 2CC VIAL) MG 06/25/2018 07/02/2018 PRN Q6H HYDROCODONE/APAP 5MG/325MG T AB 5 MG/325MG (SHAKILA-TAB 5/325) TAB 06/25/2018 07/05/2018 PRN Q4H ACETAMINOPHEN ORAL TABLET 325mg(Tylenol) MG 06/26/2018 07/26/2018 PRN Q6H Problems Date Dx Coded Attending Type Code Diagnosis Diagnosed By 02/26/1525 MATTHEW VIEYRA Ot M25.512 PAIN IN LEFT SHOULDER 02/26/1525 MATTHEW VIEYRA Ot Z47.89 ENCOUNTER FOR OTHER ORTHOPEDIC AFTERCARE 01/17/2008 AFTAB PEREIRA MD V74.5 Screening Examination For Venereal Disease 01/17/2008 V74.5 Scre ening Examination For Venereal Disease 01/17/2008 GAGANDEEP FLORES APRN V74.5 Screening Examination For Venereal Disease 01/17/2008 AFTAB PEREIRA MD V74.5 Screening Examination For Venereal Disease 01/17/2008 SOCRATES TALAVERA MD V74.5 Screening Examination For Venereal Disease 01/17/2008 V74.5 Scre ening Examination For Venereal Disease 01/17/2008 V74.5 Scre ening Examination For Venereal Disease 01/17/2008 V74.5 Scre ening Examination For Venereal Disease 01/17/2008 SOCRATES TALAVERA MD V74.5 Screening Examination For Venereal Disease 01/17/2008 SOCRATES TALAVERA MD V74.5 Screening Examination For Venereal Disease 01/17/2008 SOCRATES TALAVERA MD V74.5 Screening Examination For Venereal Disease 01/17/2008 JAMI ROSAS APRN A V7 4.5 Screening Examination For Venereal Disease 01/17/2008 SOCRATES TALAVERA MD V74.5 Screening Examination For Venereal Disease 01/17/2008 MALINDA BURT SANDEEP K V74.5 Screening Examination For Venereal Disease 01/17/2008 JAMI ROSAS APRN A V7 4.5 Screening Examination For Venereal Disease 01/17/2008 PETTY DO SANDEEP K V74.5 Screening Examination For Venereal Disease 01/17/2008 PARIS PETTY DOA K V74.5 Screening Examination For Venereal Disease 01/17/2008 ASHLEY BRUNO MD V74 .5 Screening Examination For Venereal Disease 01/17/2008 LOVE GENAO APRN V74.5 Screening Examination For Venereal Disease 01/17/2008 MALINDA BURT SANDEEP K V74.5 Screening Examination For Venereal Disease 01/17/2008 KIANA MD, ASHLEY N V74 .5 Screening Examination For Venereal Disease 01/17/2008 KIANA MONZON, ASHLEY N V74 .5 Screening Examination For Venereal Disease 01/17/2008 KIANA MONZON, ASHLEY N V74 .5 Screening Examination For Venereal Disease 01/17/2008 KIANA MONZON, ASHLEY N V74 .5 Screening Examination For Venereal Disease 01/17/2008 KIANA MONZON, ASHLEY N V74 .5 Screening Examination For Venereal Disease 01/17/2008 KIANA MONZON, ASHLEY N V74 .5 Screening Examination For Venereal Disease 01/17/2008 KIANA MONZON, ASHLEY N V74 .5 Screening Examination For Venereal Disease 01/17/2008 KIANA MONZON, ASHLEY N V74 .5 Screening Examination For Venereal Disease 01/17/2008 JAMI ROSAS APRN V7 4.5 Screening Examination For Venereal Disease 01/17/2008 KIANA MONZON, ASHLEY N V74 .5 Screening Examination For Venereal Disease 01/17/2008 KIANA MONZON, ASHLEY N V74 .5 Screening Examination For Venereal Disease 01/17/2008 KIANA MONZON, ASHLEY N V74 .5 Screening Examination For Venereal Disease 01/17/2008 KIANA MONZON, ASHLEY N V74 .5 Screening Examination For Venereal Disease 01/17/2008 KIANA MONZON, ASHLEY N V74 .5 Screening Examination For Venereal Disease 01/17/2008 KIANA MONZON, ASHLEY N V74 .5 Screening Examination For Venereal Disease 03/01/2008 AFTAB PEREIRA MD V72.3 1 Plant Mechanic Exam, Routine 03/01/2008 V72.31 Plant Mechanic Exam, Routine 03/01/2008 GAGANDEEP FLORES APRN V72.31 Plant Mechanic Exam, Routine 03/01/2008 AFTAB PEREIRA MD V72.3 1 Plant Mechanic Exam, Routine 03/01/2008 SADAF MONZON, SOCRATES Portillo V72.31 Plant Mechanic Exam, Routine 03/01/2008 V72.31 Plant Mechanic Exam, Routine 03/01/2008 V72.31 Plant Mechanic Exam, Routine 03/01/2008 V72.31 Plant Mechanic Exam, Routine 03/01/2008 SOCRATES TALAVERA MD V72.31 Plant Mechanic Exam, Routine 03/01/2008 SADAF MONZON, SOCRATES Portillo V72.31 Plant Mechanic Exam, Routine 03/01/2008 SADAF MONZON, SOCRATES Portillo V72.31 Plant Mechanic Exam, Routine 03/01/2008 JAMI ROSAS APRN A V72.31 Plant Mechanic Exam, Routine 03/01/2008 SADAF MOZNON, SOCRATES Portillo V72.31 Plant Mechanic Exam, Routine 03/01/2008 PETTY DOPARISA K V72.31 Plant Mechanic Exam, Routine 03/01/2008 JAMI ROSAS APRN V72.31 Plant Mechanic Exam, Routine 03/01/2008 PETTY DOPARISA K V72.31 Plant Mechanic Exam, Routine 03/01/2008 PETYT DO SANDEEP K V72.31 Plant Mechanic Exam, Routine 03/01/2008 KIANA MONZON, ASHLEY N V72 .31 Plant Mechanic Exam, Routine 03/01/2008 LOVE GENAO APRN V72.31 Plant Mechanic Exam, Routine 03/01/2008 PARIS PETTY DOA K V72.31 Plant Mechanic Exam, Routine 03/01/2008 KIANA MONZON, ASHLEY N V72 .31 Plant Mechanic Exam, Routine 03/01/2008 KIANA MONZON, ASHLEY N V72 .31 Plant Mechanic Exam, Routine 03/01/2008 KIANA MONZON, ASHLEY N V72 .31 Plant Mechanic Exam, Routine 03/01/2008 KIANA MONZON, ASHLEY N V72 .31 Plant Mechanic Exam, Routine 03/01/2008 KIANA MONZON, ASHLEY N V72 .31 Plant Mechanic Exam, Routine 03/01/2008 ASHLEY BRUNO MD N V72 .31 Plant Mechanic Exam, Routine 03/01/2008 ASHLEY BRUNO MD N V72 .31 Plant Mechanic Exam, Routine 03/01/2008 ASHLEY BRUNO MD N V72 .31 Plant Mechanic Exam, Routine 03/01/2008 JAMI ROSAS APRN V72.31 Plant Mechanic Exam, Routine 03/01/2008 ASHLEY BRUNO MD N V72 .31 Plant Mechanic Exam, Routine 03/01/2008 ASHLEY BRUNO MD N V72 .31 Plant Mechanic Exam, Routine 03/01/2008 ASHLEY BRUNO MD N V72 .31 Plant Mechanic Exam, Routine 03/01/2008 ASHLEY BRUNO MD N V72 .31 Plant Mechanic Exam, Routine 03/01/2008 KIANA MONZON, ASHLEY Lee V72 .31 Plant Mechanic Exam, Routine 03/01/2008 KIANA MONZON, ASHLEY Lee V72 .31 Plant Mechanic Exam, Routine 03/16/2008 AFTAB PEREIRA MD V05.3 HEPATITIS VIRAL/ALL 03/16/2008 V05.3 HEPA TITIS VIRAL/ALL 03/16/2008 SANDRA LLANES, GAGANDEEP R V05.3 HEPATITIS VIRAL/ALL 03/16/2008 AFTAB PEREIRA MD V05.3 HEPATITIS VIRAL/ALL 03/16/2008 SADAF MONZON, SOCRATES Portillo V05.3 HEPATITIS VIRAL/ALL 03/16/2008 V05.3 HEPA TITIS VIRAL/ALL 03/16/2008 V05.3 HEPA TITIS VIRAL/ALL 03/16/2008 V05.3 HEPA TITIS VIRAL/ALL 03/16/2008 SADAF MONZON, SOCRATES Portillo V05.3 HEPATITIS VIRAL/ALL 03/16/2008 SADAF MONZON, SOCRATES Portillo V05.3 HEPATITIS VIRAL/ALL 03/16/2008 SADAF MONZON, SOCRATES Portillo V05.3 HEPATITIS VIRAL/ALL 03/16/2008 RALPH LLANES, JAMI A V0 5.3 HEPATITIS VIRAL/ALL 03/16/2008 SADAF MONZON, SOCRATES Portillo V05.3 HEPATITIS VIRAL/ALL 03/16/2008 PETTY DO, SANDEEP K V05.3 HEPATITIS VIRAL/ALL 03/16/2008 RALPH CASEN, JAMI A V0 5.3 HEPATITIS VIRAL/ALL 03/16/2008 PETTY DO, SANDEEP K V05.3 HEPATITIS VIRAL/ALL 03/16/2008 PETTY DO, SANDEEP K V05.3 HEPATITIS VIRAL/ALL 03/16/2008 KIANA MONZON, ASHLEY N V05 .3 HEPATITIS VIRAL/ALL 03/16/2008 LOVE GENAO APRN R V05.3 HEPATITIS VIRAL/ALL 03/16/2008 MALINDA BURT SANDEEP K V05.3 HEPATITIS VIRAL/ALL 03/16/2008 KIANA MONZON, ASHLEY N V05 .3 HEPATITIS VIRAL/ALL 03/16/2008 KIANA MONZON, ASHLEY Lee V05 .3 HEPATITIS VIRAL/ALL 03/16/2008 KIANA MONZON, ASHLEY Lee V05 .3 HEPATITIS VIRAL/ALL 03/16/2008 KIANA MONZON, ASHLEY N V05 .3 HEPATITIS VIRAL/ALL 03/16/2008 KIANA MONZON, ASHLEY N V05 .3 HEPATITIS VIRAL/ALL 03/16/2008 KIANA MONZON, ASHLEY N V05 .3 HEPATITIS VIRAL/ALL 03/16/2008 KIANA MONZON, ASHLEY N V05 .3 HEPATITIS VIRAL/ALL 03/16/2008 KIANA MONZON, ASHLEY N V05 .3 HEPATITIS VIRAL/ALL 03/16/2008 JAMI ROSAS APRN V0 5.3 HEPATITIS VIRAL/ALL 03/16/2008 KIANA MONZON, ASHLEY N V05 .3 HEPATITIS VIRAL/ALL 03/16/2008 KIANA MONZON, ASHELY N V05 .3 HEPATITIS VIRAL/ALL 03/16/2008 KIANA MONZON, ASHLEY N V05 .3 HEPATITIS VIRAL/ALL 03/16/2008 KIANA MONZON, ASHLEY N V05 .3 HEPATITIS VIRAL/ALL 03/16/2008 KIANA MONZON, ASLHEY N V05 .3 HEPATITIS VIRAL/ALL 03/16/2008 KIANA MONZON, ASHLEY N V05 .3 HEPATITIS VIRAL/ALL 07/26/2008 AFTAB PEREIRA MD 466.0 Acute Bronchitis 07/26/2008 466.0 Acut e Bronchitis 07/26/2008 GAGANDEEP FLORES APRN 466.0 Acute Bronchitis 07/26/2008 AFTAB PEREIRA MD 466.0 Acute Bronchitis 07/26/2008 SOCRATES TALAVERA MD 466.0 Acute Bronchitis 07/26/2008 466.0 Acut e Bronchitis 07/26/2008 466.0 Acut e Bronchitis 07/26/2008 466.0 Acut e Bronchitis 07/26/2008 SOCRATES TALAVERA MD 466.0 Acute Bronchitis 07/26/2008 SOCRATES TALAVERA MD 466.0 Acute Bronchitis 07/26/2008 SOCRATES TALAVERA MD 466.0 Acute Bronchitis 07/26/2008 JAMI ROSAS APRN A 46 6.0 Acute Bronchitis 07/26/2008 SOCRATES TALAVERA MD 466.0 Acute Bronchitis 07/26/2008 PETTY DO, SANDEEP K 466.0 Acute Bronchitis 07/26/2008 JAMI ROSAS APRN A 46 6.0 Acute Bronchitis 07/26/2008 PETTY DO, SANDEEP K 466.0 Acute Bronchitis 07/26/2008 SANDEEP PETTY DO K 466.0 Acute Bronchitis 07/26/2008 KIANA MONZON, ASHLEY N 466 .0 Acute Bronchitis 07/26/2008 LOVE GENAO APRN R 466.0 Acute Bronchitis 07/26/2008 SANDEEP PETTY DO K 466.0 Acute Bronchitis 07/26/2008 KIANA MONZON, ASHLEY N 466 .0 Acute Bronchitis 07/26/2008 KIANA MONZON, ASHLEY N 466 .0 Acute Bronchitis 07/26/2008 KIANA MONZON, ASHLEY N 466 .0 Acute Bronchitis 07/26/2008 KIANA MONZON, ASHLEY N 466 .0 Acute Bronchitis 07/26/2008 KIANA MONZON, ASHLEY N 466 .0 Acute Bronchitis 07/26/2008 KIANA MONZON, ASHLYE N 466 .0 Acute Bronchitis 07/26/2008 KIANA MONZON, ASHLEY N 466 .0 Acute Bronchitis 07/26/2008 KIANA MONZON, ASHLEY N 466 .0 Acute Bronchitis 07/26/2008 JAMI ROSAS APRN A 46 6.0 Acute Bronchitis 07/26/2008 KIANA MONZON, ASHLEY N 466 .0 Acute Bronchitis 07/26/2008 KIANA MONZON, ASHLEY N 466 .0 Acute Bronchitis 07/26/2008 KIANA MONZON, ASHLEY N 466 .0 Acute Bronchitis 07/26/2008 KIANA MONZON, ASHLEY N 466 .0 Acute Bronchitis 07/26/2008 KIANA MONZON, ASHLEY N 466 .0 Acute Bronchitis 07/26/2008 KIANA MONZON, ASHLEY N 466 .0 Acute Bronchitis 10/31/2008 AFTAB PEREIRA MD V58.6 9 MEDICATION HIGH RISK 10/31/2008 V58.69 MED ICATION HIGH RISK 10/31/2008 GAGANDEEP FLORES APRN V58.69 taking high-risk medication 10/31/2008 AFTAB PEREIRA MD V58.6 9 taking high-risk medication 10/31/2008 SOCRATES TALAVERA MD V58.69 taking high-risk medication 10/31/2008 V58.69 carissa ing high-risk medication 10/31/2008 V58.69 carissa ing high-risk medication 10/31/2008 V58.69 carissa ing high-risk medication 10/31/2008 SOCRATES TALAVERA MD V58.69 taking high-risk medication 10/31/2008 SOCRATES TALAVERA MD V58.69 taking high-risk medication 10/31/2008 SOCRATES TALAVERA MD V58.69 taking high-risk medication 10/31/2008 JAMI ROSAS APRN A V58.69 taking high-risk medication 10/31/2008 SOCRATES TALAVERA MD V58.69 taking high-risk medication 10/31/2008 PETTY DOPARISA K V58.69 taking high-risk medication 10/31/2008 JAMI ROSAS APRN A V58.69 taking high-risk medication 10/31/2008 PETTY DO SANDEEP K V58.69 taking high-risk medication 10/31/2008 PETTY DO SANDEEP K V58.69 taking high-risk medication 10/31/2008 ASHLEY BRUNO MD V58 .69 taking high-risk medication 10/31/2008 LOVE GENAO APRN V58.69 taking high-risk medication 10/31/2008 PARIS PETTY DOA K V58.69 taking high-risk medication 10/31/2008 ASHLEY BRUNO MD V58 .69 taking high-risk medication 10/31/2008 ASHLEY BRUNO MD V58 .69 taking high-risk medication 10/31/2008 ASHLEY BRUNO MD V58 .69 taking high-risk medication 10/31/2008 ASHLEY BRUNO MD V58 .69 taking high-risk medication 10/31/2008 ASHLEY BRUNO MD V58 .69 taking high-risk medication 10/31/2008 ASHLEY BRUNO MD V58 .69 taking high-risk medication 10/31/2008 ASHLEY BRUNO MD V58 .69 taking high-risk medication 10/31/2008 ASHLEY BRUNO MD V58 .69 taking high-risk medication 10/31/2008 JAMI ROSAS APRN V58.69 taking high-risk medication 10/31/2008 ASHLEY BRUNO MD V58 .69 taking high-risk medication 10/31/2008 ASHLEY BRUNO MD V58 .69 taking high-risk medication 10/31/2008 ASHLEY BRUNO MD V58 .69 taking high-risk medication 10/31/2008 ASHLEY BRUNO MD V58 .69 taking high-risk medication 10/31/2008 ASHLEY BRUNO MD V58 .69 taking high-risk medication 10/31/2008 ASHLEY BRUNO MD V58 .69 taking high-risk medication 02/27/2009 AFTAB PEREIRA MD 296.9 0 MOOD DISORDER 02/27/2009 AFTAB PEREIRA MD 719.4 9 PAIN IN JOINT, MULTIPLE SITES 02/27/2009 AFTAB PEERIRA MD 780.7 9 MALAISE AND FATIGUE 02/27/2009 296.90 MOO D DISORDER 02/27/2009 719.49 SANGEETHA N IN JOINT, MULTIPLE SITES 02/27/2009 780.79 MAL AISE AND FATIGUE 02/27/2009 GAGANDEEP FLORES APRN R 296.90 MOOD DISORDER 02/27/2009 GAGANDEEP FLORES APRN R 719.49 PAIN IN JOINT, MULTIPLE SITES 02/27/2009 GAGANDEEP FLORES APRN R 780.79 MALAISE AND FATIGUE 02/27/2009 AFTAB PEREIRA MD 296.9 0 MOOD DISORDER 02/27/2009 AFTAB PEREIRA MD 719.4 9 PAIN IN JOINT, MULTIPLE SITES 02/27/2009 AFTAB PEREIRA MD 780.7 9 MALAISE AND FATIGUE 02/27/2009 SOCRATES TALAVERA MD 296.90 MOOD DISORDER 02/27/2009 SOCRATES TALAVERA MD 719.49 PAIN IN JOINT, MULTIPLE SITES 02/27/2009 SOCRATES TALAVERA MD 780.79 MALAISE AND FATIGUE 02/27/2009 296.90 MOO D DISORDER 02/27/2009 719.49 SANGEETHA N IN JOINT, MULTIPLE SITES 02/27/2009 780.79 MAL AISE AND FATIGUE 02/27/2009 296.90 MOO D DISORDER 02/27/2009 719.49 SANGEETHA N IN JOINT, MULTIPLE SITES 02/27/2009 780.79 MAL AISE AND FATIGUE 02/27/2009 296.90 MOO D DISORDER 02/27/2009 719.49 SANGEETHA N IN JOINT, MULTIPLE SITES 02/27/2009 780.79 MAL AISE AND FATIGUE 02/27/2009 SOCRATES TALAVERA MD 296.90 [...] TALAVERA MD 780.79 MALAISE AND FATIGUE 02/27/2009 RALPH LLANES JAMI A 296.90 MOOD DISORDER 02/27/2009 RALPH LLANES JAMI A 719.49 PAIN IN JOINT, MULTIPLE SITES 02/27/2009 RALPH LLANES JAMI A 780.79 MALAISE AND FATIGUE 02/27/2009 SOCRATES TALAVERA MD 296.90 MOOD DISORDER 02/27/2009 SOCRATES TALAVERA MD 719.49 PAIN IN JOINT, MULTIPLE SITES 02/27/2009 SOCRATES TALAVERA MD 780.79 MALAISE AND FATIGUE 02/27/2009 PETTY DO SANDEEP K 296.90 MOOD DISORDER 02/27/2009 PETTY DO SANDEEP K 719.49 PAIN IN JOINT, MULTIPLE SITES 02/27/2009 PETTY DO SANDEEP K 780.79 MALAISE AND FATIGUE 02/27/2009 RALPH LLANES JAMI A 296.90 MOOD DISORDER 02/27/2009 RALPH LLANES JAMI A 719.49 PAIN IN JOINT, MULTIPLE SITES 02/27/2009 RALPH LLANES JAMI A 780.79 MALAISE AND FATIGUE 02/27/2009 PETTY DO, SANDEEP K 296.90 MOOD DISORDER 02/27/2009 PETTY DO, SANDEEP K 719.49 PAIN IN JOINT, MULTIPLE SITES 02/27/2009 PETTY DO, SANDEEP K 780.79 MALAISE AND FATIGUE 02/27/2009 PETTY DO, SANDEEP K 296.90 MOOD DISORDER 02/27/2009 PETTY DO SANDEEP K 719.49 PAIN IN JOINT, MULTIPLE SITES 02/27/2009 PETTY DO, SANDEEP K 780.79 MALAISE AND FATIGUE 02/27/2009 ASHLEY BRUNO MD N 296 .90 MOOD DISORDER 02/27/2009 ASHLEY BRUNO MD 719 .49 PAIN IN JOINT, MULTIPLE SITES 02/27/2009 ASHLEY BRUNO MD N 780 .79 MALAISE AND FATIGUE 02/27/2009 CHADWICK WIRE LATHER, LOVE R 296.90 MOOD DISORDER 02/27/2009 CHADWICK WIRE LATHER, LOVE R 719.49 PAIN IN JOINT, MULTIPLE SITES 02/27/2009 CHADWICK WIRE LATHER, LOVE R 780.79 MALAISE AND FATIGUE 02/27/2009 PETTY DO SANDEEP K 296.90 MOOD DISORDER 02/27/2009 MALINDA DO SANDEEP K 719.49 PAIN IN JOINT, MULTIPLE SITES 02/27/2009 MALINDA BURT SANDEEP K 780.79 MALAISE AND FATIGUE 02/27/2009 ASHLEY RBUNO MD N 296 .90 MOOD DISORDER 02/27/2009 ASHLEY BRUNO MD 719 .49 PAIN IN JOINT, MULTIPLE SITES 02/27/2009 ASHLEY BRUNO MD N 780 .79 MALAISE AND FATIGUE 02/27/2009 ASHLEY BRUNO MD N 296 .90 MOOD DISORDER 02/27/2009 ASHLEY BRUNO MD N 719 .49 PAIN IN JOINT, MULTIPLE SITES 02/27/2009 ASHLEY BRUNO MD N 780 .79 MALAISE AND FATIGUE 02/27/2009 ASHLEY BRUNO MD N 296 .90 MOOD DISORDER 02/27/2009 ASHLEY BRUNO MD 719 .49 PAIN IN JOINT, MULTIPLE SITES 02/27/2009 ASHLEY BRUNO MD N 780 .79 MALAISE AND FATIGUE 02/27/2009 ASHLEY BRUNO MD N 296 .90 MOOD DISORDER 02/27/2009 ASHLEY BRUNO MD N 719 .49 PAIN IN JOINT, MULTIPLE SITES 02/27/2009 ASHLEY BRUNO MD N 780 .79 MALAISE AND FATIGUE 02/27/2009 ASHLEY BRUNO MD N 296 .90 MOOD DISORDER 02/27/2009 ASHLEY BRUNO MD N 719 .49 PAIN IN JOINT, MULTIPLE SITES 02/27/2009 ASHLEY BRUNO MD N 780 .79 MALAISE AND FATIGUE 02/27/2009 ASHLEY BRUNO MD N 296 .90 MOOD DISORDER 02/27/2009 ASHLEY BRUNO MD N 719 .49 PAIN IN JOINT, MULTIPLE SITES 02/27/2009 ASHLEY BRUNO MD N 780 .79 MALAISE AND FATIGUE 02/27/2009 ASHLEY BRUNO MD N 296 .90 MOOD DISORDER 02/27/2009 ASHLEY BRUNO MD N 719 .49 PAIN IN JOINT, MULTIPLE SITES 02/27/2009 ASHLEY BRUNO MD N 780 .79 MALAISE AND FATIGUE 02/27/2009 ASHLEY BRUNO MD N 296 .90 MOOD DISORDER 02/27/2009 ASHLEY BRUNO MD N 719 .49 PAIN IN JOINT, MULTIPLE SITES 02/27/2009 ASHLEY BRUNO MD N 780 .79 MALAISE AND FATIGUE 02/27/2009 RALPH LLANES JAMI A 296.90 MOOD DISORDER 02/27/2009 RALPH LLANES JAMI A 719.49 PAIN IN JOINT, MULTIPLE SITES 02/27/2009 RALPH LLANES JAMI A 780.79 MALAISE AND FATIGUE 02/27/2009 ASHLEY BRUNO MD N 296 .90 MOOD DISORDER 02/27/2009 ASHLEY BRUNO MD N 719 .49 PAIN IN JOINT, MULTIPLE SITES 02/27/2009 ASHLEY BRUNO MD N 780 .79 MALAISE AND FATIGUE 02/27/2009 ASHLEY BRUNO MD N 296 .90 MOOD DISORDER 02/27/2009 ASHLEY BRUNO MD N 719 .49 PAIN IN JOINT, MULTIPLE SITES 02/27/2009 ASHLEY BRUNO MD N 780 .79 MALAISE AND FATIGUE 02/27/2009 ASHLEY BRUNO MD N 296 .90 MOOD DISORDER 02/27/2009 ASHLEY BRUNO MD N 719 .49 PAIN IN JOINT, MULTIPLE SITES 02/27/2009 ASHLEY BRUNO MD N 780 .79 MALAISE AND FATIGUE 02/27/2009 ASHLEY BRUNO MD N 296 .90 MOOD DISORDER 02/27/2009 ASHLEY BRUNO MD N 719 .49 PAIN IN JOINT, MULTIPLE SITES 02/27/2009 ASHLEY BRUNO MD N 780 .79 MALAISE AND FATIGUE 02/27/2009 ASHLEY BRUNO MD N 296 .90 MOOD DISORDER 02/27/2009 ASHLEY BRUNO MD N 719 .49 PAIN IN JOINT, MULTIPLE SITES 02/27/2009 ASHLEY BRUNO MD N 780 .79 MALAISE AND FATIGUE 02/27/2009 ASHLEY BRUNO MD N 296 .90 MOOD DISORDER 02/27/2009 ASHLEY BRUNO MD N 719 .49 PAIN IN JOINT, MULTIPLE SITES 02/27/2009 ASHLEY BRUNO MD N 780 .79 MALAISE AND FATIGUE 04/06/2009 AFTAB PEREIRA MD 381.8 1 DYSFUNCTION OF EUSTACHIAN TUBE 04/06/2009 AFTAB PEREIRA MD 388.7 0 Otalgia, Unspecified 04/06/2009 AFTAB PEREIRA MD 783.1 WEIGHT GAIN ABNORMAL 04/06/2009 381.81 DYS FUNCTION OF EUSTACHIAN TUBE 04/06/2009 388.70 Toro lgia, Unspecified 04/06/2009 783.1 WEIG HT GAIN ABNORMAL 04/06/2009 GAGANDEEP FLORES APRN R 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 04/06/2009 GAGANDEEP FLORES APRN R 388.70 Otalgia, Unspecified 04/06/2009 GAGANDEEP FLORES APRN R 783.1 WEIGHT GAIN ABNORMAL 04/06/2009 AFTAB PEREIRA MD 381.8 1 DYSFUNCTION OF EUSTACHIAN TUBE 04/06/2009 AFTAB PEREIRA MD 388.7 0 Otalgia, Unspecified 04/06/2009 AFTAB PEREIRA MD 783.1 WEIGHT GAIN ABNORMAL 04/06/2009 SOCRATES TALAVERA MD 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 04/06/2009 SOCRATES TALAVERA MD 388.70 Otalgia, Unspecified 04/06/2009 SOCRATES TALAVERA MD 783.1 WEIGHT GAIN ABNORMAL 04/06/2009 381.81 DYS FUNCTION OF EUSTACHIAN TUBE 04/06/2009 388.70 Mill Dresser lgia, Unspecified 04/06/2009 783.1 WEIG HT GAIN ABNORMAL 04/06/2009 381.81 DYS FUNCTION OF EUSTACHIAN TUBE 04/06/2009 388.70 Toro lgia, Unspecified 04/06/2009 783.1 WEIG HT GAIN ABNORMAL 04/06/2009 381.81 DYS FUNCTION OF EUSTACHIAN TUBE 04/06/2009 388.70 Mill Dresser lgia, Unspecified 04/06/2009 783.1 WEIG HT GAIN ABNORMAL 04/06/2009 SOCRATES TALAVERA MD 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 04/06/2009 SOCRATES ATLAVERA MD 388.70 Otalgia, Unspecified 04/06/2009 SOCRATES TALAVERA [...] 388.70 Otalgia, Unspecified 04/06/2009 JAMI ROSAS APRN 78 3.1 WEIGHT GAIN ABNORMAL 04/06/2009 SOCRATES TALAVERA MD 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 04/06/2009 SOCRATES TALAVERA MD 388.70 Otalgia, Unspecified 04/06/2009 SOCRATES TALAVERA MD 783.1 WEIGHT GAIN ABNORMAL 04/06/2009 PETTY DO, SANDEEP K 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 04/06/2009 PETTY DO, SANDEEP K 388.70 Otalgia, Unspecified 04/06/2009 PETTY DO, SANDEEP K 783.1 WEIGHT GAIN ABNORMAL 04/06/2009 JAMI ROSAS APRN A 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 04/06/2009 JAMI ROSAS APRN A 388.70 Otalgia, Unspecified 04/06/2009 RALPHHELEN LLANES, JAMI A 78 3.1 WEIGHT GAIN ABNORMAL 04/06/2009 PETTY DO, SANDEEP K 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 04/06/2009 PETTY DO, SANDEEP K 388.70 Otalgia, Unspecified 04/06/2009 PETTY DO, SANDEEP K 783.1 WEIGHT GAIN ABNORMAL 04/06/2009 PETTY DO, SANDEEP K 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 04/06/2009 PETTY DO, SANDEEP K 388.70 Otalgia, Unspecified 04/06/2009 PETTY DO, SANDEEP K 783.1 WEIGHT GAIN ABNORMAL 04/06/2009 ASHLEY BRUNO MD 381 .81 DYSFUNCTION OF EUSTACHIAN TUBE 04/06/2009 ASHLEY BRUNO MD 388 .70 Otalgia, Unspecified 04/06/2009 ASHLEY BRUNO MD 783 .1 WEIGHT GAIN ABNORMAL 04/06/2009 CHADWICK LLANES LOVE R 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 04/06/2009 CHADWICK LLANES LOVE R 388.70 Otalgia, Unspecified 04/06/2009 CHADWICK LLANES LOVE R 783.1 WEIGHT GAIN ABNORMAL 04/06/2009 PETTY DO, SANDEEP K 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 04/06/2009 PETTY DO, SANDEEP K 388.70 Otalgia, Unspecified 04/06/2009 PETTY DO, SANDEEP K 783.1 WEIGHT GAIN ABNORMAL 04/06/2009 ASHLEY BRUNO MD 381 .81 DYSFUNCTION OF EUSTACHIAN TUBE 04/06/2009 ASHLEY BRUNO MD 388 .70 Otalgia, Unspecified 04/06/2009 ASHLEY BRUNO MD N 783 .1 WEIGHT GAIN ABNORMAL 04/06/2009 ASHLEY BRUNO MD N 381 .81 DYSFUNCTION OF EUSTACHIAN TUBE 04/06/2009 ASHLEY BRUNO MD 388 .70 Otalgia, Unspecified 04/06/2009 ASHLEY BRUNO MD N 783 .1 WEIGHT GAIN ABNORMAL 04/06/2009 ASHLEY BRUNO MD N 381 .81 DYSFUNCTION OF EUSTACHIAN TUBE 04/06/2009 ASHLEY BRUNO MD 388 .70 Otalgia, Unspecified 04/06/2009 ASHLEY BRUNO MD N 783 .1 WEIGHT GAIN ABNORMAL 04/06/2009 ASHLEY BRUNO MD N 381 .81 DYSFUNCTION OF EUSTACHIAN TUBE 04/06/2009 ASHLEY BRUNO MD N 388 .70 Otalgia, Unspecified 04/06/2009 ASHLEY BRUNO MD N 783 .1 WEIGHT GAIN ABNORMAL 04/06/2009 ASHLEY BRUNO MD N 381 .81 DYSFUNCTION OF EUSTACHIAN TUBE 04/06/2009 ASHLEY BRUNO MD N 388 .70 Otalgia, Unspecified 04/06/2009 ASHLEY BRUNO MD N 783 .1 WEIGHT GAIN ABNORMAL 04/06/2009 ASHLEY BRUNO MD N 381 .81 DYSFUNCTION OF EUSTACHIAN TUBE 04/06/2009 ASHLEY BRUNO MD N 388 .70 Otalgia, Unspecified 04/06/2009 ASHLEY BRUNO MD N 783 .1 WEIGHT GAIN ABNORMAL 04/06/2009 ASHLEY BRUNO MD N 381 .81 DYSFUNCTION OF EUSTACHIAN TUBE 04/06/2009 ASHLEY BRUNO MD N 388 .70 Otalgia, Unspecified 04/06/2009 ASHLEY BRUNO MD N 783 .1 WEIGHT GAIN ABNORMAL 04/06/2009 ASHLEY BRUNO MD N 381 .81 DYSFUNCTION OF EUSTACHIAN TUBE 04/06/2009 ASHLEY BRUNO MD N 388 .70 Otalgia, Unspecified 04/06/2009 ASHLEY BRUNO MD N 783 .1 WEIGHT GAIN ABNORMAL 04/06/2009 JAMI ROSAS APRN A 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 04/06/2009 JAMI ROSAS APRN A 388.70 Otalgia, Unspecified 04/06/2009 RALPHJesus LLANES JAMI A 78 3.1 WEIGHT GAIN ABNORMAL 04/06/2009 ASHLEY BRUNO MD N 381 .81 DYSFUNCTION OF EUSTACHIAN TUBE 04/06/2009 ASHLEY BRUNO MD N 388 .70 Otalgia, Unspecified 04/06/2009 ASHLEY BRUNO MD N 783 .1 WEIGHT GAIN ABNORMAL 04/06/2009 ASHLEY BRUNO MD N 381 .81 DYSFUNCTION OF EUSTACHIAN TUBE 04/06/2009 ASHLEY BRUNO MD N 388 .70 Otalgia, Unspecified 04/06/2009 ASHLEY BRUNO MD N 783 .1 WEIGHT GAIN ABNORMAL 04/06/2009 ASHLEY BRUNO MD N 381 .81 DYSFUNCTION OF EUSTACHIAN TUBE 04/06/2009 ASHLEY BRUNO MD N 388 .70 Otalgia, Unspecified 04/06/2009 ASHLEY BRUNO MD N 783 .1 WEIGHT GAIN ABNORMAL 04/06/2009 ASHLEY BRUNO MD N 381 .81 DYSFUNCTION OF EUSTACHIAN TUBE 04/06/2009 ASHLEY BRUNO MD N 388 .70 Otalgia, Unspecified 04/06/2009 ASHLEY BRUNO MD N 783 .1 WEIGHT GAIN ABNORMAL 04/06/2009 ASHLEY BRUNO MD N 381 .81 DYSFUNCTION OF EUSTACHIAN TUBE 04/06/2009 ASHLEY BRUNO MD N 388 .70 Otalgia, Unspecified 04/06/2009 ASHLEY BRUNO MD N 783 .1 WEIGHT GAIN ABNORMAL 04/06/2009 ASHLEY BRUNO MD N 381 .81 DYSFUNCTION OF EUSTACHIAN TUBE 04/06/2009 ASHLEY BRUNO MD N 388 .70 Otalgia, Unspecified 04/06/2009 ASHLEY BRUNO MD N 783 .1 WEIGHT GAIN ABNORMAL 07/04/2009 AFTAB PEREIRA MD 278.0 2 OVERWEIGHT 07/04/2009 AFTAB PEREIRA MD 719.4 0 PAIN IN JOINT, SITE UNSPECIFIED 07/04/2009 AFTAB PEREIRA MD 729.5 PAIN IN LIMB 07/04/2009 AFTAB PEREIRA MD 782.3 EDEMA 07/04/2009 AFTAB PEREIRA MD 788.1 Dysuria 07/04/2009 278.02 OVE RWEIT 07/04/2009 719.40 SANGEETHA N IN JOINT, SITE UNSPECIFIED 07/04/2009 729.5 PAIN IN LIMB 07/04/2009 782.3 EDEMA 07/04/2009 788.1 Dysuria 07/04/2009 GAGANDEEP FLORES APRN R 278.02 OVERWEIGHT 07/04/2009 GAGANDEEP FLORES APRN R 719.40 PAIN IN JOINT, SITE UNSPECIFIED 07/04/2009 SANDRA LLANES, GAGANDEEP R 729.5 PAIN IN LIMB 07/04/2009 SANDRA LLANES, GAGANDEEP R 782.3 EDEMA 07/04/2009 RICO FLORES APRNIA R 788.1 Dysuria 07/04/2009 AFTAB PEREIRA MD 278.0 2 Overweight 07/04/2009 AFTAB PEREIRA MD 719.4 0 PAIN IN JOINT, SITE UNSPECIFIED 07/04/2009 AFTAB [...] SOCRATES TALAVERA MD 788.1 Dysuria 07/04/2009 278.02 [facility]2009 719.40 SANGEETHA N IN JOINT, SITE UNSPECIFIED 07/04/2009 729.5 PAIN IN LIMB 07/04/2009 782.3 soft tissue swelling (non-joint) [Sx] 07/04/2009 788.1 Dysuria 07/04/2009 278.02 Ove rweight 07/04/2009 719.40 SANGEETHA N IN JOINT, SITE UNSPECIFIED 07/04/2009 729.5 PAIN IN LIMB 07/04/2009 782.3 soft tissue swelling (non-joint) [Sx] 07/04/2009 788.1 Dysuria 07/04/2009 278.02 Ove rweight 07/04/2009 719.40 SANGEETHA N IN JOINT, SITE UNSPECIFIED 07/04/2009 729.5 PAIN IN LIMB [...] 07/04/2009 SOCRATES TALAVERA MD 788.1 Dysuria 07/04/2009 RALPH LLANES, JAMI A 278.02 Overweight 07/04/2009 RALPH CASEN, JAMI A 719.40 PAIN IN JOINT, SITE UNSPECIFIED 07/04/2009 RALPH WIRE LATHER, JAMI A 72 9.5 PAIN IN LIMB 07/04/2009 RALPH WIRE LATHER, JAMI A 78 2.3 soft tissue swelling (non-joint) [Sx] 07/04/2009 RALPH LLANES JAMI A 78 8.1 Dysuria 07/04/2009 SOCRATES TALAVERA MD M 278.02 Overweight 07/04/2009 SOCRATES TALAVERA MD 719.40 [...] PETTY DO, SANDEEP K 788.1 Dysuria 07/04/2009 RALPH WIRE LATHER, JAMI A 278.02 Overweight 07/04/2009 RALPH WIRE LATHER, JAMI A 719.40 PAIN IN JOINT, SITE UNSPECIFIED 07/04/2009 RALPH WIRE LATHER, JAMI A 72 9.5 PAIN IN LIMB 07/04/2009 RALPH WIRE LATHER, JAMI A 78 2.3 soft tissue swelling (non-joint) [Sx] 07/04/2009 RALPH WIRE LATHER, JAMI A 78 8.1 Dysuria 07/04/2009 PETTY DO, SANDEEP K 278.02 [...] DO, SANDEEP K 788.1 Dysuria 07/04/2009 KIANA MONZON, ASHLEY Lee 278 .02 Overweight 07/04/2009 ASHLEY BRUNO MD 719 .40 PAIN IN JOINT, SITE UNSPECIFIED 07/04/2009 ASHLEY BRUNO MD N 729 .5 PAIN IN LIMB 07/04/2009 ASHLEY BRUNO MD N 782 .3 soft tissue swelling (non-joint) [Sx] 07/04/2009 ASHLEY BRUNO MD N 788 .1 Dysuria 07/04/2009 CHADWICK WIRE LATHER, LOVE R 278.02 Overweight 07/04/2009 CHADWICK WIRE LATHER, LOVE R 719.40 PAIN IN JOINT, SITE UNSPECIFIED 07/04/2009 CHADWICK WIRE LATHER, LOVE R 729.5 PAIN IN LIMB 07/04/2009 CHADWICK WIRE LATHER, LOVE R 782.3 soft tissue swelling (non-joint) [Sx] 07/04/2009 CHADWICK WIRE LATHER, LOVE R 788.1 Dysuria 07/04/2009 PETTY DO, SANDEEP K 278.02 Overweight 07/04/2009 PETTY DO, SANDEEP K 719.40 PAIN IN JOINT, SITE UNSPECIFIED 07/04/2009 PETTY DO, SANDEEP K 729.5 PAIN IN LIMB 07/04/2009 PETTY DO SANDEEP K 782.3 soft tissue swelling (non-joint) [Sx] 07/04/2009 PETTY DO SANDEEP K 788.1 Dysuria 07/04/2009 ASHLEY BRUNO MD N 278 .02 Overweight 07/04/2009 ASHLEY BRUNO MD N 719 .40 PAIN IN JOINT, SITE UNSPECIFIED 07/04/2009 ASHLEY BRUNO MD N 729 .5 PAIN IN LIMB 07/04/2009 ASHLEY BRUNO MD N 782 .3 soft tissue swelling (non-joint) [Sx] 07/04/2009 ASHLEY BRUNO MD N 788 .1 Dysuria 07/04/2009 ASHLEY BRUNO MD N 278 .02 Overweight 07/04/2009 ASHLEY BRUNO MD N 719 .40 PAIN IN JOINT, SITE UNSPECIFIED 07/04/2009 ASHLEY BRUNO MD N 729 .5 PAIN IN LIMB 07/04/2009 ASHLEY BRUNO MD N 782 .3 soft tissue swelling (non-joint) [Sx] 07/04/2009 ASHLEY BRUNO MD N 788 .1 Dysuria 07/04/2009 ASHLEY BRUNO MD N 278 .02 Overweight 07/04/2009 ASHLEY BRUNO MD N 719 .40 PAIN IN JOINT, SITE UNSPECIFIED 07/04/2009 ASHLEY BRUNO MD N 729 .5 PAIN IN LIMB 07/04/2009 ASHLEY BRUNO MD N 782 .3 soft tissue swelling (non-joint) [Sx] 07/04/2009 ASHLEY BRUNO MD N 788 .1 Dysuria 07/04/2009 ASHLEY BRUNO MD N 278 .02 Overweight 07/04/2009 ASHLEY BRUNO MD N 719 .40 PAIN IN JOINT, SITE UNSPECIFIED 07/04/2009 ASHLEY BRUNO MD N 729 .5 PAIN IN LIMB 07/04/2009 ASHLEY BRUNO MD N 782 .3 soft tissue swelling (non-joint) [Sx] 07/04/2009 ASHLEY BRUNO MD N 788 .1 Dysuria 07/04/2009 ASHLEY BRUNO MD N 278 .02 Overweight 07/04/2009 ASHLEY BRUNO MD N 719 .40 PAIN IN JOINT, SITE UNSPECIFIED 07/04/2009 ASHLEY BRUNO MD N 729 .5 PAIN IN LIMB 07/04/2009 ASHLEY BRUNO MD N 782 .3 soft tissue swelling (non-joint) [Sx] 07/04/2009 ASHLEY BRUNO MD N 788 .1 Dysuria 07/04/2009 ASHLEY BRUNO MD N 278 .02 Overweight 07/04/2009 ASHLEY BRUNO MD N 719 .40 PAIN IN JOINT, SITE UNSPECIFIED 07/04/2009 ASHLEY BRUNO MD N 729 .5 PAIN IN LIMB 07/04/2009 ASHLEY BRUNO MD N 782 .3 soft tissue swelling (non-joint) [Sx] 07/04/2009 ASHLEY BRUNO MD N 788 .1 Dysuria 07/04/2009 ASHLEY BRUNO MD N 278 .02 Overweight 07/04/2009 ASHLEY BRUNO MD N 719 .40 PAIN IN JOINT, SITE UNSPECIFIED 07/04/2009 ASHLEY BRUNO MD N 729 .5 PAIN IN LIMB 07/04/2009 ASHLEY BRUNO MD N 782 .3 soft tissue swelling (non-joint) [Sx] 07/04/2009 ASHLEY BRUNO MD N 788 .1 Dysuria 07/04/2009 ASHLEY BRUNO MD N 278 .02 Overweight 07/04/2009 ASHLEY BRUNO MD N 719 .40 PAIN IN JOINT, SITE UNSPECIFIED 07/04/2009 ASHLEY BRUNO MD N 729 .5 PAIN IN LIMB 07/04/2009 ASHLEY BRUNO MD N 782 .3 soft tissue swelling (non-joint) [Sx] 07/04/2009 ASHLEY BRUNO MD N 788 .1 Dysuria 07/04/2009 RALPHHELEN LLANES JAMI A 278.02 Overweight 07/04/2009 RALPHMARYAN CERVANTES APRNIDI A 719.40 PAIN IN JOINT, SITE UNSPECIFIED 07/04/2009 RALPH WIRE LATHERMARYAN LeeIDI A 72 9.5 PAIN IN LIMB 07/04/2009 RALPHMARYAN Lee APRNIDI A 78 2.3 soft tissue swelling (non-joint) [Sx] 07/04/2009 MARYAN ROSAS APRNIDI A 78 8.1 Dysuria 07/04/2009 ASHLEY BRUNO MD N 278 .02 Overweight 07/04/2009 ASHLEY BRUNO MD N 719 .40 PAIN IN JOINT, SITE UNSPECIFIED 07/04/2009 ASHLEY BRUNO MD N 729 .5 PAIN IN LIMB 07/04/2009 ASHLEY BRUNO MD N 782 .3 soft tissue swelling (non-joint) [Sx] 07/04/2009 ASHLEY BRUNO MD N 788 .1 Dysuria 07/04/2009 ASHLEY BRUNO MD N 278 .02 Overweight 07/04/2009 ASHLEY BRUNO MD N 719 .40 PAIN IN JOINT, SITE UNSPECIFIED 07/04/2009 ASHLEY BRUNO MD N 729 .5 PAIN IN LIMB 07/04/2009 ASHLEY BRUNO MD N 782 .3 soft tissue swelling (non-joint) [Sx] 07/04/2009 ASHLEY BRUNO MD N 788 .1 Dysuria 07/04/2009 ASHLEY BRUNO MD N 278 .02 Overweight 07/04/2009 ASHLEY BRUNO MD N 719 .40 PAIN IN JOINT, SITE UNSPECIFIED 07/04/2009 ASHLEY BRUNO MD N 729 .5 PAIN IN LIMB 07/04/2009 ASHLEY BRUNO MD N 782 .3 soft tissue swelling (non-joint) [Sx] 07/04/2009 ASHLEY BRUNO MD N 788 .1 Dysuria 07/04/2009 ASHLEY BRUNO MD N 278 .02 Overweight 07/04/2009 ASHLEY BRUNO MD N 719 .40 PAIN IN JOINT, SITE UNSPECIFIED 07/04/2009 ASHLEY BRUNO MD N 729 .5 PAIN IN LIMB 07/04/2009 ASHELY BRUNO MD N 782 .3 soft tissue swelling (non-joint) [Sx] 07/04/2009 ASHLEY BRUNO MD N 788 .1 Dysuria 07/04/2009 ASHLEY BRUNO MD N 278 .02 Overweight 07/04/2009 ASHLEY BRUNO MD N 719 .40 PAIN IN JOINT, SITE UNSPECIFIED 07/04/2009 ASHLEY BRUNO MD N 729 .5 PAIN IN LIMB 07/04/2009 ASHLEY BRUNO MD N 782 .3 soft tissue swelling (non-joint) [Sx] 07/04/2009 ASHLEY BRUNO MD N 788 .1 Dysuria 07/04/2009 ASHLEY BRUNO MD N 278 .02 Overweight 07/04/2009 ASHLEY BRUNO MD N 719 .40 PAIN IN JOINT, SITE UNSPECIFIED 07/04/2009 ASHLEY BRUNO MD N 729 .5 PAIN IN LIMB 07/04/2009 ASHLEY BRUNO MD N 782 .3 soft tissue swelling (non-joint) [Sx] 07/04/2009 ASHLEY BRUNO MD N 788 .1 Dysuria 07/12/2009 AFTAB PEREIRA MD 453.4 0 Acute Venous Embolism And Thrombosis Of Unspecified Deep Vessels Of Lower Extremity 07/12/2009 453.40 Acu te Venous Embolism And Thrombosis Of Unspecified Deep Vessels Of Lower Extremity 07/12/2009 GAGANDEEP FLORES APRN 453.40 Acute Venous Embolism And Thrombosis Of Unspecified Deep Vessels Of Lower Extremity 07/12/2009 AFTAB PEREIRA MD 453.4 0 Acute Venous Embolism And Thrombosis Of Unspecified Deep Vessels Of Lower Extremity 07/12/2009 SOCRATES TALAVERA MD 453.40 Acute Venous Embolism And Thrombosis Of Unspecified Deep Vessels Of Lower Extremity 07/12/2009 453.40 Acu te Venous Embolism And Thrombosis Of Unspecified Deep Vessels Of Lower Extremity 07/12/2009 453.40 Acu te Venous Embolism And Thrombosis Of Unspecified Deep Vessels Of Lower Extremity 07/12/2009 453.40 Acu te Venous Embolism And Thrombosis Of Unspecified Deep [...] Of Lower Extremity 07/12/2009 SANDEEP PETTY DO 453.40 Acute Venous Embolism And Thrombosis Of Unspecified Deep Vessels Of Lower Extremity 07/12/2009 JAMI ROSAS APRN 453.40 Acute Venous Embolism And Thrombosis Of Unspecified Deep Vessels Of Lower Extremity 07/12/2009 SANDEEP PETTY DO 453.40 Acute Venous Embolism And Thrombosis Of Unspecified Deep Vessels Of Lower Extremity 07/12/2009 SANDEEP PETTY DO 453.40 Acute Venous Embolism And Thrombosis Of Unspecified Deep Vessels Of Lower Extremity 07/12/2009 ASHLEY BRUNO MD 453 .40 Acute Venous Embolism And Thrombosis Of Unspecified Deep Vessels Of Lower Extremity 07/12/2009 LOVE GENAO APRN 453.40 Acute Venous Embolism And Thrombosis Of Unspecified Deep Vessels Of Lower Extremity 07/12/2009 SANDEEP PETTY DO 453.40 Acute Venous Embolism And Thrombosis Of Unspecified Deep Vessels Of Lower Extremity 07/12/2009 ASHLEY BRUNO MD 453 .40 Acute Venous Embolism And Thrombosis Of Unspecified Deep Vessels Of Lower Extremity 07/12/2009 ASHLEY BRUNO MD 453 .40 Acute Venous Embolism And Thrombosis Of Unspecified Deep Vessels Of Lower Extremity 07/12/2009 ASHLEY BRUNO MD N 453 .40 Acute Venous Embolism And Thrombosis Of Unspecified Deep Vessels Of Lower Extremity 07/12/2009 ASHLEY BRUNO MD N 453 .40 Acute Venous Embolism And Thrombosis Of Unspecified Deep Vessels Of Lower Extremity 07/12/2009 ASHLEY BRUNO MD N 453 .40 Acute Venous Embolism And Thrombosis Of Unspecified Deep Vessels Of Lower Extremity 07/12/2009 ASHLEY BRUNO MD N 453 .40 Acute Venous Embolism And Thrombosis Of Unspecified Deep Vessels Of Lower Extremity 07/12/2009 ASHLEY BRUNO MD N 453 .40 Acute Venous Embolism And Thrombosis Of Unspecified Deep Vessels Of Lower Extremity 07/12/2009 ASHLEY BRUNO MD N 453 .40 Acute Venous Embolism And Thrombosis Of Unspecified Deep Vessels Of Lower Extremity 07/12/2009 JAMI ROSAS APRN 453.40 Acute Venous Embolism And Thrombosis Of Unspecified Deep Vessels Of Lower Extremity 07/12/2009 ASHLEY BRUNO MD N 453 .40 Acute Venous Embolism And Thrombosis Of Unspecified Deep Vessels Of Lower Extremity 07/12/2009 ASHLEY BRUNO MD N 453 .40 Acute Venous Embolism And Thrombosis Of Unspecified Deep Vessels Of Lower Extremity 07/12/2009 ASHLEY BRUNO MD N 453 .40 Acute Venous Embolism And Thrombosis Of Unspecified Deep Vessels Of Lower Extremity 07/12/2009 ASHLEY BRUNO MD N 453 .40 Acute Venous Embolism And Thrombosis Of Unspecified Deep Vessels Of Lower Extremity 07/12/2009 ASHLEY BRUNO MD N 453 .40 Acute Venous Embolism And Thrombosis Of Unspecified Deep Vessels Of Lower Extremity 07/12/2009 ASHLEY BRUNO MD N 453 .40 Acute Venous Embolism And Thrombosis Of Unspecified Deep Vessels Of Lower Extremity 10/26/2009 AFTAB PEREIRA MD 536.8 DYSPEPSIA AND OTHER SPECIFIED DISORDERS OF FUNCTION OF STOMACH 10/26/2009 536.8 DYSP EPSIA AND OTHER SPECIFIED DISORDERS OF FUNCTION OF STOMACH 10/26/2009 GAGANDEEP FLORES APRN 536.8 DYSPEPSIA AND OTHER SPECIFIED DISORDERS OF FUNCTION OF STOMACH 10/26/2009 AFTAB PEREIRA MD 536.8 DYSPEPSIA AND OTHER SPECIFIED DISORDERS OF FUNCTION OF STOMACH 10/26/2009 SOCRATES TALAVERA MD 536.8 DYSPEPSIA AND OTHER SPECIFIED DISORDERS OF FUNCTION OF STOMACH 10/26/2009 536.8 DYSP EPSIA AND OTHER SPECIFIED DISORDERS OF FUNCTION OF STOMACH 10/26/2009 536.8 DYSP EPSIA AND OTHER SPECIFIED DISORDERS OF FUNCTION OF STOMACH 10/26/2009 536.8 DYSP EPSIA AND OTHER SPECIFIED DISORDERS OF FUNCTION OF STOMACH 10/26/2009 SOCRATES TALAVERA MD 536.8 DYSPEPSIA AND OTHER SPECIFIED DISORDERS OF FUNCTION OF STOMACH 10/26/2009 SOCRATES TALAVERA MD 536.8 DYSPEPSIA AND OTHER SPECIFIED DISORDERS OF FUNCTION OF STOMACH 10/26/2009 SOCRATES TALAVERA MD 536.8 DYSPEPSIA AND OTHER SPECIFIED DISORDERS OF FUNCTION OF STOMACH 10/26/2009 JAMI ROSAS APRN A 53 6.8 DYSPEPSIA AND OTHER SPECIFIED DISORDERS OF FUNCTION OF STOMACH 10/26/2009 SOCRATES TALAVERA MD 536.8 DYSPEPSIA AND OTHER SPECIFIED DISORDERS OF FUNCTION OF STOMACH 10/26/2009 SANDEEP PETTY DO K 536.8 DYSPEPSIA AND OTHER SPECIFIED DISORDERS OF FUNCTION OF STOMACH 10/26/2009 JAMI ROSAS APRN A 53 6.8 DYSPEPSIA AND OTHER SPECIFIED DISORDERS OF FUNCTION OF STOMACH 10/26/2009 PARIS PETTY DOA K 536.8 DYSPEPSIA AND OTHER SPECIFIED DISORDERS OF FUNCTION OF STOMACH 10/26/2009 PARIS PETTY DOA K 536.8 DYSPEPSIA AND OTHER SPECIFIED DISORDERS OF FUNCTION OF STOMACH 10/26/2009 ASHLEY BRUNO MD 536 .8 DYSPEPSIA AND OTHER SPECIFIED DISORDERS OF FUNCTION OF STOMACH 10/26/2009 LOVE GENAO APRN 536.8 DYSPEPSIA AND OTHER SPECIFIED DISORDERS OF FUNCTION OF STOMACH 10/26/2009 MALINDA BURT SANDEEP K 536.8 DYSPEPSIA AND OTHER SPECIFIED DISORDERS OF FUNCTION OF STOMACH 10/26/2009 ASHLEY BRUNO MD 536 .8 DYSPEPSIA AND OTHER SPECIFIED DISORDERS OF FUNCTION OF STOMACH 10/26/2009 ASHLEY BRUNO MD N 536 .8 DYSPEPSIA AND OTHER SPECIFIED DISORDERS OF FUNCTION OF STOMACH 10/26/2009 ASHLEY BRUNO MD 536 .8 DYSPEPSIA AND OTHER SPECIFIED DISORDERS OF FUNCTION OF STOMACH 10/26/2009 KIANA MD, ASHLEY N 536 .8 DYSPEPSIA AND OTHER SPECIFIED DISORDERS OF FUNCTION OF STOMACH 10/26/2009 ASHLEY BRUNO MD N 536 .8 DYSPEPSIA AND OTHER SPECIFIED DISORDERS OF FUNCTION OF STOMACH 10/26/2009 ASHLEY BRUNO MD N 536 .8 DYSPEPSIA AND OTHER SPECIFIED DISORDERS OF FUNCTION OF STOMACH 10/26/2009 ASHLEY BRUNO MD N 536 .8 DYSPEPSIA AND OTHER SPECIFIED DISORDERS OF FUNCTION OF STOMACH 10/26/2009 ASHLEY BRUNO MD N 536 .8 DYSPEPSIA AND OTHER SPECIFIED DISORDERS OF FUNCTION OF STOMACH 10/26/2009 RALPH LLANES, JAMI A 53 6.8 DYSPEPSIA AND OTHER SPECIFIED DISORDERS OF FUNCTION OF STOMACH 10/26/2009 ASHLEY BRUNO MD N 536 .8 DYSPEPSIA AND OTHER SPECIFIED DISORDERS OF FUNCTION OF STOMACH 10/26/2009 ASHLEY BRUNO MD N 536 .8 DYSPEPSIA AND OTHER SPECIFIED DISORDERS OF FUNCTION OF STOMACH 10/26/2009 ASHLEY BRUNO MD N 536 .8 DYSPEPSIA AND OTHER SPECIFIED DISORDERS OF FUNCTION OF STOMACH 10/26/2009 ASHLEY BRUNO MD N 536 .8 DYSPEPSIA AND OTHER SPECIFIED DISORDERS OF FUNCTION OF STOMACH 10/26/2009 ASHLEY BRUNO MD N 536 .8 DYSPEPSIA AND OTHER SPECIFIED DISORDERS OF FUNCTION OF STOMACH 10/26/2009 ASHLEY BRUNO MD N 536 .8 DYSPEPSIA AND OTHER SPECIFIED DISORDERS OF FUNCTION OF STOMACH 11/15/2009 AFTAB PEREIRA MD 726.1 0 DISORDERS OF BURSAE AND TENDONS IN SHOULDER REGION, UNSPECIFIED 11/15/2009 726.10 DIS ORDERS OF BURSAE AND TENDONS IN SHOULDER REGION, UNSPECIFIED 11/15/2009 GAGANDEEP FLORES APRN 726.10 DISORDERS OF BURSAE AND TENDONS IN SHOULDER REGION, UN SPECIFIED 11/15/2009 AFTAB PEREIRA MD 726.1 0 DISORDERS OF BURSAE AND TENDONS IN SHOULDER REGION, UNSPECIFIED 11/15/2009 SOCRATES TALAVERA MD 726.10 DISORDERS OF BURSAE AND TENDONS IN SHOULDER REGION, UN SPECIFIED 11/15/2009 726.10 DIS ORDERS OF BURSAE AND TENDONS IN SHOULDER REGION, UNSPECIFIED 11/15/2009 726.10 DIS ORDERS OF BURSAE AND TENDONS IN SHOULDER REGION, UNSPECIFIED 11/15/2009 726.10 DIS ORDERS OF BURSAE AND TENDONS IN SHOULDER REGION, UNSPECIFIED 11/15/2009 SOCRATES TALAVERA MD 726.10 DISORDERS OF BURSAE AND TENDONS IN SHOULDER REGION, UN SPECIFIED 11/15/2009 SOCRATES TALAVERA MD 726.10 DISORDERS OF BURSAE AND TENDONS IN SHOULDER REGION, UN SPECIFIED 11/15/2009 SOCRATES TALAVERA MD 726.10 DISORDERS OF BURSAE AND TENDONS IN SHOULDER REGION, UN SPECIFIED 11/15/2009 MARYAN ROSAS APRNIDI A 726.10 DISORDERS OF BURSAE AND TENDONS IN SHOULDER REGION, UN SPECIFIED 11/15/2009 SOCRATES TALAVERA MD 726.10 DISORDERS OF BURSAE AND TENDONS IN SHOULDER REGION, UN SPECIFIED 11/15/2009 SANDEEP PETTY DO K 726.10 DISORDERS OF BURSAE AND TENDONS IN SHOULDER REGION, UNSPECIFIED 11/15/2009 JAMI ROSAS APRN A 726.10 DISORDERS OF BURSAE AND TENDONS IN SHOULDER REGION, UN SPECIFIED 11/15/2009 SANDEEP PETTY DO K 726.10 DISORDERS OF BURSAE AND TENDONS IN SHOULDER REGION, UNSPECIFIED 11/15/2009 SANDEEP PETTY DO K 726.10 DISORDERS OF BURSAE AND TENDONS IN SHOULDER REGION, UNSPECIFIED 11/15/2009 ASHLEY BRUNO MD 726 .10 DISORDERS OF BURSAE AND TENDONS IN SHOULDER REGION, UNSPECIFIED 11/15/2009 LOVE GENAO APRN R 726.10 DISORDERS OF BURSAE AND TENDONS IN SHOULDER REGION, UN SPECIFIED 11/15/2009 SANDEEP PETTY DO K 726.10 DISORDERS OF BURSAE AND TENDONS IN SHOULDER REGION, UNSPECIFIED 11/15/2009 ASHLEY BRUNO MD 726 .10 DISORDERS OF BURSAE AND TENDONS IN SHOULDER REGION, UNSPECIFIED 11/15/2009 ASHLEY BRUNO MD 726 .10 DISORDERS OF BURSAE AND TENDONS IN SHOULDER REGION, UNSPECIFIED 11/15/2009 ASHLEY BRUNO MD 726 .10 DISORDERS OF BURSAE AND TENDONS IN SHOULDER REGION, UNSPECIFIED 11/15/2009 ASHLEY BRUNO MD N 726 .10 DISORDERS OF BURSAE AND TENDONS IN SHOULDER REGION, UNSPECIFIED 11/15/2009 KIANA MD, ASHLEY N 726 .10 DISORDERS OF BURSAE AND TENDONS IN SHOULDER REGION, UNSPECIFIED 11/15/2009 ASHLEY BRUNO MD N 726 .10 DISORDERS OF BURSAE AND TENDONS IN SHOULDER REGION, UNSPECIFIED 11/15/2009 ASHLEY BRUNO MD N 726 .10 DISORDERS OF BURSAE AND TENDONS IN SHOULDER REGION, UNSPECIFIED 11/15/2009 ASHLEY BRUNO MD N 726 .10 DISORDERS OF BURSAE AND TENDONS IN SHOULDER REGION, UNSPECIFIED 11/15/2009 JAMI ROSAS APRN 726.10 DISORDERS OF BURSAE AND TENDONS IN SHOULDER REGION, UN SPECIFIED 11/15/2009 ASHLEY BRUNO MD N 726 .10 DISORDERS OF BURSAE AND TENDONS IN SHOULDER REGION, UNSPECIFIED 11/15/2009 ASHLEY BRUNO MD N 726 .10 DISORDERS OF BURSAE AND TENDONS IN SHOULDER REGION, UNSPECIFIED 11/15/2009 ASHLEY BRUNO MD N 726 .10 DISORDERS OF BURSAE AND TENDONS IN SHOULDER REGION, UNSPECIFIED 11/15/2009 ASHLEY BRUNO MD N 726 .10 DISORDERS OF BURSAE AND TENDONS IN SHOULDER REGION, UNSPECIFIED 11/15/2009 ASHLEY BRUNO MD N 726 .10 DISORDERS OF BURSAE AND TENDONS IN SHOULDER REGION, UNSPECIFIED 11/15/2009 ASHLEY BRUNO MD N 726 .10 DISORDERS OF BURSAE AND TENDONS IN SHOULDER REGION, UNSPECIFIED 02/27/2010 AFTAB PEREIRA MD 288.5 0 LEUKOCYTOPENIA UNSPECIFIED 02/27/2010 AFTAB PEREIRA MD 289.8 1 PRIMARY HYPERCOAGULABLE STATE 02/27/2010 288.50 ELIE KOCYTOPENIA UNSPECIFIED 02/27/2010 289.81 LINDA JUAN R HYPERCOAGULABLE STATE 02/27/2010 GAGANDEEP FLORES APRN R 288.50 LEUKOCYTOPENIA UNSPECIFIED 02/27/2010 GAGANDEEP FLORES APRN R 289.81 PRIMARY HYPERCOAGULABLE STATE 02/27/2010 AFTAB PEREIRA MD 288.5 0 LEUKOCYTOPENIA UNSPECIFIED 02/27/2010 AFTAB PEREIRA MD 289.8 1 PRIMARY HYPERCOAGULABLE STATE 02/27/2010 SOCRATES TALAVERA MD 288.50 LEUKOCYTOPENIA UNSPECIFIED 02/27/2010 SOCRATES TALAVERA MD 289.81 PRIMARY HYPERCOAGULABLE STATE 02/27/2010 288.50 ELIE KOCYTOPENIA UNSPECIFIED 02/27/2010 289.81 LINDA PETE HYPERCOAGULABLE STATE 02/27/2010 288.50 ELIE KOCYTOPENIA UNSPECIFIED 02/27/2010 289.81 LINDA PETE HYPERCOAGULABLE STATE 02/27/2010 288.50 ELIE KOCYTOPENIA UNSPECIFIED 02/27/2010 289.81 LINDA PETE HYPERCOAGULABLE STATE 02/27/2010 SOCRATES TALAVERA MD 288.50 [...] A 289.81 PRIMARY HYPERCOAGULABLE STATE 02/27/2010 SOCRATES TALAVERA MD 288.50 LEUKOCYTOPENIA UNSPECIFIED 02/27/2010 SOCRATES TALAVERA MD 289.81 PRIMARY HYPERCOAGULABLE STATE 02/27/2010 MALINDA BURT SANDEEP K 288.50 LEUKOCYTOPENIA UNSPECIFIED 02/27/2010 MALINDA BURT SANDEEP K 289.81 PRIMARY HYPERCOAGULABLE STATE 02/27/2010 JAMI ROSAS APRN A 288.50 LEUKOCYTOPENIA UNSPECIFIED 02/27/2010 JAMI ROSAS APRN A 289.81 PRIMARY HYPERCOAGULABLE STATE 02/27/2010 PETTY DO SANDEEP K 288.50 LEUKOCYTOPENIA UNSPECIFIED 02/27/2010 PETTY DO SANDEEP K 289.81 PRIMARY HYPERCOAGULABLE STATE 02/27/2010 PETTY DO SANDEEP K 288.50 LEUKOCYTOPENIA UNSPECIFIED 02/27/2010 PETTY DO SANDEEP K 289.81 PRIMARY HYPERCOAGULABLE STATE 02/27/2010 ASHLEY BRUNO MD 288 .50 LEUKOCYTOPENIA UNSPECIFIED 02/27/2010 ASHLEY BRUNO MD 289 .81 PRIMARY HYPERCOAGULABLE STATE 02/27/2010 LASHONDA GENAO APRNINA R 288.50 LEUKOCYTOPENIA UNSPECIFIED 02/27/2010 LASHONDA GENAO APRNINA R 289.81 PRIMARY HYPERCOAGULABLE STATE 02/27/2010 PETTY , SANDEEP K 288.50 LEUKOCYTOPENIA UNSPECIFIED 02/27/2010 PETTY DO, SANDEEP K 289.81 PRIMARY HYPERCOAGULABLE STATE 02/27/2010 ASHLEY BRUNO MD N 288 .50 LEUKOCYTOPENIA UNSPECIFIED 02/27/2010 ASHLEY BRUNO MD N 289 .81 PRIMARY HYPERCOAGULABLE STATE 02/27/2010 ASHLEY BRUNO MD N 288 .50 LEUKOCYTOPENIA UNSPECIFIED 02/27/2010 ASHLEY BRUNO MD N 289 .81 PRIMARY HYPERCOAGULABLE STATE 02/27/2010 ASHLEY BRUNO MD N 288 .50 LEUKOCYTOPENIA UNSPECIFIED 02/27/2010 ASHLEY BRUNO MD N 289 .81 PRIMARY HYPERCOAGULABLE STATE 02/27/2010 ASHLEY BRUNO MD N 288 .50 LEUKOCYTOPENIA UNSPECIFIED 02/27/2010 ASHLEY BRUNO MD N 289 .81 PRIMARY HYPERCOAGULABLE STATE 02/27/2010 ASHLEY BRUNO MD N 288 .50 LEUKOCYTOPENIA UNSPECIFIED 02/27/2010 ASHLEY BRUNO MD N 289 .81 PRIMARY HYPERCOAGULABLE STATE 02/27/2010 ASHLEY BRUNO MD N 288 .50 LEUKOCYTOPENIA UNSPECIFIED 02/27/2010 ASHLEY BRUNO MD N 289 .81 PRIMARY HYPERCOAGULABLE STATE 02/27/2010 ASHLEY BRUNO MD N 288 .50 LEUKOCYTOPENIA UNSPECIFIED 02/27/2010 ASHLEY BRUNO MD N 289 .81 PRIMARY HYPERCOAGULABLE STATE 02/27/2010 ASHLEY BRUNO MD N 288 .50 LEUKOCYTOPENIA UNSPECIFIED 02/27/2010 ASHLEY BURNO MD N 289 .81 PRIMARY HYPERCOAGULABLE STATE 02/27/2010 JAMI ROSAS APRN A 288.50 LEUKOCYTOPENIA UNSPECIFIED 02/27/2010 JAMI ROSAS APRN A 289.81 PRIMARY HYPERCOAGULABLE STATE 02/27/2010 ASHLEY BRUNO MD N 288 .50 LEUKOCYTOPENIA UNSPECIFIED 02/27/2010 ASHLEY BRUNO MD N 289 .81 PRIMARY HYPERCOAGULABLE STATE 02/27/2010 ASHLEY BRUNO MD N 288 .50 LEUKOCYTOPENIA UNSPECIFIED 02/27/2010 ASHLEY BRUNO MD N 289 .81 PRIMARY HYPERCOAGULABLE STATE 02/27/2010 ASHLEY BRUNO MD N 288 .50 LEUKOCYTOPENIA UNSPECIFIED 02/27/2010 ASHLEY BRUNO MD N 289 .81 PRIMARY HYPERCOAGULABLE STATE 02/27/2010 ASHLEY BRUNO MD N 288 .50 LEUKOCYTOPENIA UNSPECIFIED 02/27/2010 ASHLEY BRUNO MD N 289 .81 PRIMARY HYPERCOAGULABLE STATE 02/27/2010 ASHLEY BRUNO MD N 288 .50 LEUKOCYTOPENIA UNSPECIFIED 02/27/2010 ASHLEY BRUNO MD N 289 .81 PRIMARY HYPERCOAGULABLE STATE 02/27/2010 ASHLEY BRUNO MD N 288 .50 LEUKOCYTOPENIA UNSPECIFIED 02/27/2010 ASHLEY BRUNO MD N 289 .81 PRIMARY HYPERCOAGULABLE STATE 03/11/2011 AFTAB PEREIRA MD 268.9 VITAMIN D DEFICIENCY 03/11/2011 AFTAB PEREIRA MD 278.0 0 OBESITY 03/11/2011 268.9 [place] MIN D DEFICIENCY 03/11/2011 278.00 OBESITY 03/11/2011 GAGANDEEP FLORES APRN 268.9 VITAMIN D DEFICIENCY 03/11/2011 GAGNADEEP FLORES APRN R 278.00 OBESITY 03/11/2011 AFTAB PEREIRA MD 268.9 VITAMIN D DEFICIENCY 03/11/2011 AFTAB PEREIRA MD 278.0 0 OBESITY 03/11/2011 SOCRATES TALAVERA MD 268.9 VITAMIN D DEFICIENCY 03/11/2011 SOCRATES TALAVERA MD 278.00 OBESITY 03/11/2011 268.9 [place] MIN D DEFICIENCY 03/11/2011 278.00 OBESITY 03/11/2011 268.9 [place] MIN D DEFICIENCY 03/11/2011 278.00 OBESITY 03/11/2011 268.9 [place] MIN D DEFICIENCY 03/11/2011 278.00 OBESITY 03/11/2011 SOCRATES TALAVERA MD 268.9 VITAMIN D DEFICIENCY 03/11/2011 SOCRATES TALAVERA MD 278.00 OBESITY 03/11/2011 SOCRATES TALAVERA MD 268.9 VITAMIN D DEFICIENCY 03/11/2011 SOCRATES TALAVERA MD 278.00 OBESITY 03/11/2011 SOCRATES TALAVERA MD 268.9 VITAMIN D DEFICIENCY 03/11/2011 SOCRATES TALAVERA MD 278.00 OBESITY 03/11/2011 RALPH WIRE LATHER, JAMI A 26 8.9 VITAMIN D DEFICIENCY 03/11/2011 RALPH WIRE LATHER, JAMI A 278.00 OBESITY 03/11/2011 SOCRATES TALAVERA MD 268.9 VITAMIN D DEFICIENCY 03/11/2011 SOCRATES TALAVERA MD 278.00 OBESITY 03/11/2011 PETTY DO, SANDEEP K 268.9 VITAMIN D DEFICIENCY 03/11/2011 PETTY DO, SANDEPE K 278.00 OBESITY 03/11/2011 RALPH WIRE LATHER, JAMI A 26 8.9 VITAMIN D DEFICIENCY 03/11/2011 RALPH WIRE LATHER, JAMI A 278.00 OBESITY 03/11/2011 PETTY DO, SANDEEP K 268.9 VITAMIN D DEFICIENCY 03/11/2011 PETTY DO, SANDEEP K 278.00 OBESITY 03/11/2011 PETTY DO, SANDEEP K 268.9 VITAMIN D DEFICIENCY 03/11/2011 PETTY DO, SANDEEP K 278.00 OBESITY 03/11/2011 ASHLEY BRUNO MD N 268 .9 VITAMIN D DEFICIENCY 03/11/2011 ASHLEY BRUNO MD N 278 .00 OBESITY 03/11/2011 CHADWICK LLANES LOVE R 268.9 VITAMIN D DEFICIENCY 03/11/2011 CHADWICK LLANES LOVE R 278.00 OBESITY 03/11/2011 PETTY DO, SANDEEP K 268.9 VITAMIN D DEFICIENCY 03/11/2011 PETTY DO, SANDEEP K 278.00 OBESITY 03/11/2011 ASHLEY BRUNO MD N 268 .9 VITAMIN D DEFICIENCY 03/11/2011 ASHLEY BRUNO MD N 278 .00 OBESITY 03/11/2011 ASHLEY BRUNO MD N 268 .9 VITAMIN D DEFICIENCY 03/11/2011 ASHLEY BRUNO MD N 278 .00 OBESITY 03/11/2011 ASHLEY BRUNO MD N 268 .9 VITAMIN D DEFICIENCY 03/11/2011 ASHLEY BRUNO MD N 278 .00 OBESITY 03/11/2011 KIANA MD, ASHLEY N 268 .9 VITAMIN D DEFICIENCY 03/11/2011 ASHLEY BRUNO MD N 278 .00 OBESITY 03/11/2011 ASHLEY BRUNO MD N 268 .9 VITAMIN D DEFICIENCY 03/11/2011 ASHLEY BRUNO MD N 278 .00 OBESITY 03/11/2011 ASHLEY BRUNO MD N 268 .9 VITAMIN D DEFICIENCY 03/11/2011 ASHLEY BRUNO MD N 278 .00 OBESITY 03/11/2011 ASHLEY BRUNO MD N 268 .9 VITAMIN D DEFICIENCY 03/11/2011 ASHLEY BRUNO MD N 278 .00 OBESITY 03/11/2011 ASHLEY BRUNO MD N 268 .9 VITAMIN D DEFICIENCY 03/11/2011 ASHLEY BRUNO MD N 278 .00 OBESITY 03/11/2011 RALPHHELEN LLANES, JAMI A 26 8.9 VITAMIN D DEFICIENCY 03/11/2011 RALPHHELEN LLANES, JAMI A 278.00 OBESITY 03/11/2011 ASHLEY BRUNO MD N 268 .9 VITAMIN D DEFICIENCY 03/11/2011 ASHLEY BRUNO MD N 278 .00 OBESITY 03/11/2011 ASHLEY BRUNO MD N 268 .9 VITAMIN D DEFICIENCY 03/11/2011 ASHLEY BRUNO MD N 278 .00 OBESITY 03/11/2011 ASHLEY BRUNO MD N 268 .9 VITAMIN D DEFICIENCY 03/11/2011 ASHLEY BRUNO MD N 278 .00 OBESITY 03/11/2011 ASHLEY BRUNO MD N 268 .9 VITAMIN D DEFICIENCY 03/11/2011 ASHLEY BRUNO MD N 278 .00 OBESITY 03/11/2011 ASHLEY BRUNO MD N 268 .9 VITAMIN D DEFICIENCY 03/11/2011 ASHLEY BRUNO MD N 278 .00 OBESITY 03/11/2011 ASHLEY BRUNO MD N 268 .9 VITAMIN D DEFICIENCY 03/11/2011 ASHLEY BRUNO MD N 278 .00 OBESITY 06/18/2011 Ot 924.20 CON TUSION OF FOOT 06/18/2011 Ot 959.7 LOWE R LEG INJURY NOS 06/18/2011 Ot E000.8 OTH ER EXTERNAL CAUSE STATUS 06/18/2011 Ot E849.0 ACC IDENT IN HOME 06/18/2011 Ot E888.9 FAL L NOS 08/06/2011 AFTAB PEREIRA MD V12.5 1 Personal History of DVT 08/06/2011 V12.51 Per cee History of DVT 08/06/2011 GAGANDEEP FLORES APRN V12.51 Personal History of DVT 08/06/2011 AFTAB PEREIRA MD V12.5 1 Personal History of DVT 08/06/2011 SOCRATES TALAVERA MD V12.51 Personal History of DVT 08/06/2011 V12.51 Per cee History of DVT 08/06/2011 V12.51 Per cee History of DVT 08/06/2011 V12.51 Per cee History of DVT 08/06/2011 SOCRATES TALAVERA MD V12.51 Personal History of DVT 08/06/2011 SOCRATES TALAVERA MD V12.51 Personal History of DVT 08/06/2011 SOCRATES TALAVERA MD V12.51 Personal History of DVT 08/06/2011 JAMI ROSAS APRN V12.51 Personal History of DVT 08/06/2011 SOCRATES TALAVERA MD V12.51 Personal History of DVT 08/06/2011 MALINDA BURT SANDEEP K V12.51 Personal History of DVT 08/06/2011 JAMI ROSAS APRN V12.51 Personal History of DVT 08/06/2011 PETTY DO SANDEEP K V12.51 Personal History of DVT 08/06/2011 PETTY DO SANDEEP K V12.51 Personal History of DVT 08/06/2011 ASHLEY BRUNO MD V12 .51 Personal History of DVT 08/06/2011 LOVE GENAO APRN V12.51 Personal History of DVT 08/06/2011 PETTY DO SANDEEP K V12.51 Personal History of DVT 08/06/2011 ASHLEY BRUNO MD V12 .51 Personal History of DVT 08/06/2011 ASHLEY BRUNO MD V12 .51 Personal History of DVT 08/06/2011 ASHLEY BRUNO MD V12 .51 Personal History of DVT 08/06/2011 ASHLEY BRUON MD V12 .51 Personal History of DVT 08/06/2011 ASHLEY BRUNO MD V12 .51 Personal History of DVT 08/06/2011 ASHLEY BRUNO MD V12 .51 Personal History of DVT 08/06/2011 ASHLEY BRUNO MD V12 .51 Personal History of DVT 08/06/2011 ASHLEY BRUNO MD V12 .51 Personal History of DVT 08/06/2011 JAMI ROSAS APRN V12.51 Personal History of DVT 08/06/2011 ASHLEY BRUNO MD V12 .51 Personal History of DVT 08/06/2011 ASHLEY BRUNO MD V12 .51 Personal History of DVT 08/06/2011 ASHLEY BRUNO MD V12 .51 Personal History of DVT 08/06/2011 ASHLEY BRUNO MD V12 .51 Personal History of DVT 08/06/2011 ASHLEY BRUNO MD V12 .51 Personal History of DVT 08/06/2011 ASHLEY BRUNO MD V12 .51 Personal History of DVT 01/23/2012 AFTAB PEREIRA MD 272.1 HYPERTRIGLYCERIDEMIA 01/23/2012 AFTAB PEREIRA MD 276.8 HYPOKALEMIA 01/23/2012 AFTAB PEREIRA MD 338.4 CHRONIC PAIN SYNDROME 01/23/2012 272.1 HYPERTRIGLYCERIDEMIA 01/23/2012 276.8 HYPO KALEMIA 01/23/2012 338.4 ANTENNA SPECIALIST JOSE PAIN SYNDROME 01/23/2012 RICO FLORES APRNIA R 272.1 HYPERTRIGLYCERIDEMIA 01/23/2012 JULIENNE FLORES APRNRICIA R 276.8 HYPOKALEMIA 01/23/2012 RICO FLORES APRNIA R 338.4 CHRONIC PAIN SYNDROME 01/23/2012 AFTAB PEREIRA MD 272.1 HYPERTRIGLYCERIDEMIA 01/23/2012 AFTAB PEREIRA MD 276.8 HYPOKALEMIA 01/23/2012 AFTAB PEREIRA MD 338.4 CHRONIC PAIN SYNDROME 01/23/2012 SOCRATES TALAVERA MD 272.1 HYPERTRIGLYCERIDEMIA 01/23/2012 SOCRATES TALAVERA MD 276.8 HYPOKALEMIA 01/23/2012 SOCRATES TALAVERA MD 338.4 CHRONIC PAIN SYNDROME 01/23/2012 272.1 HYPERTRIGLYCERIDEMIA 01/23/2012 276.8 HYPO KALEMIA 01/23/2012 338.4 ANTENNA SPECIALIST JOSE PAIN SYNDROME 01/23/2012 272.1 HYPERTRIGLYCERIDEMIA 01/23/2012 276.8 HYPO KALEMIA 01/23/2012 338.4 ANTENNA SPECIALIST JOSE PAIN SYNDROME 01/23/2012 272.1 HYPERTRIGLYCERIDEMIA 01/23/2012 276.8 HYPO KALEMIA 01/23/2012 338.4 ANTENNA SPECIALIST JOSE PAIN SYNDROME 01/23/2012 SOCRATES TALAVERA MD 272.1 [...] MD 338.4 CHRONIC PAIN SYNDROME 01/23/2012 RALPH LLANES, JAMI A 27 2.1 HYPERTRIGLYCERIDEMIA 01/23/2012 RALPHHELEN CASEN, JAMI A 27 6.8 HYPOKALEMIA 01/23/2012 RALPHHELEN LLANES, JAMI A 33 8.4 CHRONIC PAIN SYNDROME 01/23/2012 SOCRATES TALAVERA MD 272.1 HYPERTRIGLYCERIDEMIA 01/23/2012 SOCRATES TALAVERA MD 276.8 HYPOKALEMIA 01/23/2012 SOCRATES TALAVERA MD 338.4 CHRONIC PAIN SYNDROME 01/23/2012 PETTY DO, SANDEEP K 272.1 HYPERTRIGLYCERIDEMIA 01/23/2012 PETTY DO, SANDEEP K 276.8 HYPOKALEMIA 01/23/2012 PETTY DO, SANDEEP K 338.4 CHRONIC PAIN SYNDROME 01/23/2012 RALPHHELEN CASEN, JAMI A 27 2.1 HYPERTRIGLYCERIDEMIA 01/23/2012 RALPHHELEN CASEN, JAMI A 27 6.8 HYPOKALEMIA 01/23/2012 RALPH LLANES, JAMI A 33 8.4 CHRONIC PAIN SYNDROME 01/23/2012 PETTY DO, SANDEEP K 272.1 HYPERTRIGLYCERIDEMIA 01/23/2012 PETTY DO, SANDEEP K 276.8 HYPOKALEMIA 01/23/2012 PETTY DO, SANDEEP K 338.4 CHRONIC PAIN SYNDROME 01/23/2012 PETTY DO, SANDEEP K 272.1 HYPERTRIGLYCERIDEMIA 01/23/2012 PETTY DO, SANDEEP K 276.8 HYPOKALEMIA 01/23/2012 PETTY DO, SANDEEP K 338.4 CHRONIC PAIN SYNDROME 01/23/2012 ASHLEY BRUNO MD N 272 .1 HYPERTRIGLYCERIDEMIA 01/23/2012 ASHLEY BRUNO MD N 276 .8 HYPOKALEMIA 01/23/2012 ASHLEY BRUNO MD N 338 .4 CHRONIC PAIN SYNDROME 01/23/2012 CHADWICK WIRE LATHER LOVE R 272.1 HYPERTRIGLYCERIDEMIA 01/23/2012 CHADWICK WIRE LATHER, LOVE R 276.8 HYPOKALEMIA 01/23/2012 CHADWICK WIRE LATHER, LOVE R 338.4 CHRONIC PAIN SYNDROME 01/23/2012 PETTY DO, SANDEEP K 272.1 HYPERTRIGLYCERIDEMIA 01/23/2012 PETTY DO, SANDEEP K 276.8 HYPOKALEMIA 01/23/2012 PETTY DO, SANDEEP K 338.4 CHRONIC PAIN SYNDROME 01/23/2012 ASHLEY BRUNO MD N 272 .1 HYPERTRIGLYCERIDEMIA 01/23/2012 ASHLEY BRUNO MD N 276 .8 HYPOKALEMIA 01/23/2012 ASHLEY BRUNO MD N 338 .4 CHRONIC PAIN SYNDROME 01/23/2012 ASHLEY BRUNO MD N 272 .1 HYPERTRIGLYCERIDEMIA 01/23/2012 ASHLEY BRUNO MD N 276 .8 HYPOKALEMIA 01/23/2012 ASHLEY BRUNO MD N 338 .4 CHRONIC PAIN SYNDROME 01/23/2012 ASHLEY BRUNO MD N 272 .1 HYPERTRIGLYCERIDEMIA 01/23/2012 ASHLEY BRUNO MD N 276 .8 HYPOKALEMIA 01/23/2012 ASHELY BRUNO MD N 338 .4 CHRONIC PAIN SYNDROME 01/23/2012 ASHLEY BRUNO MD N 272 .1 HYPERTRIGLYCERIDEMIA 01/23/2012 ASHLEY BRUNO MD N 276 .8 HYPOKALEMIA 01/23/2012 ASHLEY BRUNO MD N 338 .4 CHRONIC PAIN SYNDROME 01/23/2012 ASHLEY BRUNO MD N 272 .1 HYPERTRIGLYCERIDEMIA 01/23/2012 ASHLEY BRUNO MD N 276 .8 HYPOKALEMIA 01/23/2012 KIANA MD, ASHLEY N 338 .4 CHRONIC PAIN SYNDROME 01/23/2012 ELMO BRUNO MDY N 272 .1 HYPERTRIGLYCERIDEMIA 01/23/2012 ASHLEY BRUNO MD N 276 .8 HYPOKALEMIA 01/23/2012 ELMO BRUNO MDY N 338 .4 CHRONIC PAIN SYNDROME 01/23/2012 ELMO BRUNO MDY N 272 .1 HYPERTRIGLYCERIDEMIA 01/23/2012 ASHLEY BRUNO MD N 276 .8 HYPOKALEMIA 01/23/2012 ASHLEY BRUNO MD N 338 .4 CHRONIC PAIN SYNDROME 01/23/2012 ASHLEY BRUNO MD N 272 .1 HYPERTRIGLYCERIDEMIA 01/23/2012 ASHLEY BRUNO MD N 276 .8 HYPOKALEMIA 01/23/2012 ASHLEY BRUNO MD N 338 .4 CHRONIC PAIN SYNDROME 01/23/2012 RALPH APRN, JAMI A 27 2.1 HYPERTRIGLYCERIDEMIA 01/23/2012 RALPH WIRE LATHER, JAMI A 27 6.8 HYPOKALEMIA 01/23/2012 RALPHHELEN LLANES, JAMI A 33 8.4 CHRONIC PAIN SYNDROME 01/23/2012 ASHLEY BRUNO MD N 272 .1 HYPERTRIGLYCERIDEMIA 01/23/2012 ASHLEY BRUNO MD N 276 .8 HYPOKALEMIA 01/23/2012 ASHLEY BRUNO MD N 338 .4 CHRONIC PAIN SYNDROME 01/23/2012 ELMO BRUNO MDY N 272 .1 HYPERTRIGLYCERIDEMIA 01/23/2012 ASHLEY BRUNO MD N 276 .8 HYPOKALEMIA 01/23/2012 ASHLEY BRUNO MD N 338 .4 CHRONIC PAIN SYNDROME 01/23/2012 ELMO BRUNO MDY N 272 .1 HYPERTRIGLYCERIDEMIA 01/23/2012 ELMO BRUNO MDY N 276 .8 HYPOKALEMIA 01/23/2012 ELMO BRUNO MDY N 338 .4 CHRONIC PAIN SYNDROME 01/23/2012 ELMO BRUNO MDY N 272 .1 HYPERTRIGLYCERIDEMIA 01/23/2012 ELMO BRUNO MDY N 276 .8 HYPOKALEMIA 01/23/2012 ELMO BRUNO MDY N 338 .4 CHRONIC PAIN SYNDROME 01/23/2012 ELMO BRUNO MDY N 272 .1 HYPERTRIGLYCERIDEMIA 01/23/2012 ASHLEY BRUNO MD 276 .8 HYPOKALEMIA 01/23/2012 ASHLEY BRUNO MD 338 .4 CHRONIC PAIN SYNDROME 01/23/2012 ASHLEY BRUNO MD 272 .1 HYPERTRIGLYCERIDEMIA 01/23/2012 ASHLEY BRUNO MD N 276 .8 HYPOKALEMIA 01/23/2012 ASHLEY BRUNO MD N 338 .4 CHRONIC PAIN SYNDROME 04/05/2012 GAGANDEEP FLORES APRN R 786.50 chest pain or discomfort 04/05/2012 AFTAB PEREIRA MD 786.5 0 chest pain or discomfort 04/05/2012 SOCRATES TALAVERA MD 786.50 chest pain or discomfort 04/05/[address] pain or discomfort 04/05/[address] pain or discomfort 04/05/[address] pain or discomfort 04/05/2012 SOCRATES TALAVERA MD 786.50 chest pain or discomfort 04/05/2012 SOCRATES TALAVEAR MD 786.50 chest pain or discomfort 04/05/2012 SOCRATES TALAVERA MD 786.50 chest pain or discomfort 04/05/2012 JAMI ROSAS APRN A 786.50 chest pain or discomfort 04/05/2012 SOCRATES TALAVERA MD 786.50 chest pain or discomfort 04/05/2012 PETTY DO, SANDEEP K 786.50 chest pain or discomfort 04/05/2012 MARYAN ROSAS APRNIDI A 786.50 chest pain or discomfort 04/05/2012 PETTY DO, SANDEEP K 786.50 chest pain or discomfort 04/05/2012 PETTY DO, SANDEEP K 786.50 chest pain or discomfort 04/05/2012 ASHLEY BRUNO MD 786 .50 chest pain or discomfort 04/05/2012 LOVE GENAO APRN 786.50 chest pain or discomfort 04/05/2012 PETTY DO, SANDEEP K 786.50 chest pain or discomfort 04/05/2012 ASHLEY BRUNO MD 786 .50 chest pain or discomfort 04/05/2012 ASHLEY BRUNO MD 786 .50 chest pain or discomfort 04/05/2012 ASHLEY BRUNO MD 786 .50 chest pain or discomfort 04/05/2012 ASHLEY BRUNO MD 786 .50 CHEST PAIN OR DISCOMFORT 04/05/2012 ASHLEY BRUNO MD 786 .50 CHEST PAIN OR DISCOMFORT 04/05/2012 ASHLEY BRUNO MD 786 .50 CHEST PAIN OR DISCOMFORT 04/05/2012 ASHLEY BRUNO MD 786 .50 CHEST PAIN OR DISCOMFORT 04/05/2012 ASHLEY BRUNO MD 786 .50 CHEST PAIN OR DISCOMFORT 04/05/2012 JAMI ROSAS APRN A 786.50 CHEST PAIN OR DISCOMFORT 04/05/2012 ASHLEY BRUNO MD 786 .50 CHEST PAIN OR DISCOMFORT 04/05/2012 ASHLEY BRUNO MD 786 .50 CHEST PAIN OR DISCOMFORT 04/05/2012 ASHLEY BRUNO MD 786 .50 CHEST PAIN OR DISCOMFORT 04/05/2012 ASHLEY BRUNO MD 786 .50 CHEST PAIN OR DISCOMFORT 04/05/2012 ASHLEY BRUNO MD 786 .50 CHEST PAIN OR DISCOMFORT 04/05/2012 ASHLEY BRUNO MD 786 .50 CHEST PAIN OR DISCOMFORT 10/18/2012 300.02 AN [...] AN GEN ANXIETY 10/18/2012 ASHLEY BRUNO MD 300 .02 AN GEN ANXIETY 10/18/2012 LOVE GENAO APRN 300.02 AN GEN ANXIETY 10/18/2012 SANDEEP PETTY DO K 300.02 AN GEN ANXIETY 10/18/2012 ASHLEY BRUNO MD 300 .02 AN GEN ANXIETY 10/18/2012 ASHLEY BRUNO MD 300 .02 AN GEN ANXIETY 10/18/2012 KIANA MD, ASHLEY N 300 .02 AN GEN ANXIETY 10/18/2012 ASHLEY BRUNO MD N 300 .02 AN GEN ANXIETY 10/18/2012 ASHLEY BRUNO MD N 300 .02 AN GEN ANXIETY 10/18/2012 ASHLEY BRUNO MD N 300 .02 AN GEN ANXIETY 10/18/2012 ASHLEY BRUNO MD N 300 .02 AN GEN ANXIETY 10/18/2012 ASHLEY BRUNO MD N 300 .02 AN GEN ANXIETY 10/18/2012 JAMI ROSAS APRN A 300.02 AN GEN ANXIETY 10/18/2012 ASHLEY BRUNO MD N 300 .02 AN GEN ANXIETY 10/18/2012 ASHLEY BRUNO MD N 300 .02 AN GEN ANXIETY 10/18/2012 ASHLEY BRUNO MD N 300 .02 AN GEN ANXIETY 10/18/2012 ASHLEY BRUNO MD N 300 .02 AN GEN ANXIETY 10/18/2012 ASHLEY BRUNO MD N 300 .02 AN GEN ANXIETY 10/18/2012 ASHLEY BRUNO MD N 300 .02 AN GEN ANXIETY 10/20/2012 V73.81 HPV SCREENING 10/20/2012 V76.10 CASSANDRA AST CANCER SCREENING 10/20/2012 V76.2 CERV ICAL CANCER SCREENING (PAP SMEAR) 10/20/2012 SOCRATES TALAVERA [...] JAMI ROSAS APRN V73.81 HPV SCREENING 10/20/2012 RALPH WIRE LATHER, JMAI A V76.10 BREAST CANCER SCREENING 10/20/2012 RALPHJAMI CERVANTES APRN A V7 6.2 CERVICAL CANCER SCREENING (PAP SMEAR) 10/20/2012 SOCRATES TALAVERA MD V73.81 HPV SCREENING 10/20/2012 SOCRATES TALAVERA MD V76.10 BREAST CANCER SCREENING 10/20/2012 SOCRATES TALAVERA MD V76.2 CERVICAL CANCER SCREENING (PAP SMEAR) 10/20/2012 PARIS PETTY DOA K V73.81 HPV SCREENING 10/20/2012 MALINDA BURT SANDEEP K V76.10 BREAST CANCER SCREENING 10/20/2012 MALINDA BURT SANDEEP K V76.2 CERVICAL CANCER SCREENING (PAP SMEAR) 10/20/2012 JAMI ROSAS APRN A V73.81 HPV SCREENING 10/20/2012 JAMI ROSAS APRN A V76.10 BREAST CANCER SCREENING 10/20/2012 JAMI ROSAS APRN A V7 6.2 CERVICAL CANCER SCREENING (PAP SMEAR) 10/20/2012 PARIS PETTY DOA K V73.81 HPV SCREENING 10/20/2012 MALINDA BURT SANDEEP K V76.10 BREAST CANCER SCREENING 10/20/2012 MALINDA BURT SANDEEP K V76.2 CERVICAL CANCER SCREENING (PAP SMEAR) 10/20/2012 PARIS PETTY DOA K V73.81 HPV SCREENING 10/20/2012 MALINDA BURT SANDEEP K V76.10 BREAST CANCER SCREENING 10/20/2012 MALINDA BURT SANDEEP K V76.2 CERVICAL CANCER SCREENING (PAP SMEAR) 10/20/2012 ASHLEY BRUNO MD V73 .81 HPV SCREENING 10/20/2012 ASHLEY BRUNO MD V76 .10 BREAST CANCER SCREENING 10/20/2012 ASHLEY BRUNO MD V76 .2 CERVICAL CANCER SCREENING (PAP SMEAR) 10/20/2012 LOVE GENAO APRN R V73.81 HPV SCREENING 10/20/2012 LASHONDA GENAO APRNINA R V76.10 BREAST CANCER SCREENING 10/20/2012 LASHONDA GENAO APRNINA R V76.2 CERVICAL CANCER SCREENING (PAP SMEAR) 10/20/2012 PARIS PETTY DOA K V73.81 HPV SCREENING 10/20/2012 PARIS PETTY DOA K V76.10 BREAST CANCER SCREENING 10/20/2012 SANDEEP PETTY DO V76.2 CERVICAL CANCER SCREENING (PAP SMEAR) 10/20/2012 ASHLEY BRUNO MD V73 .81 HPV SCREENING 10/20/2012 ASHLEY BRUNO MD V76 .10 BREAST CANCER SCREENING 10/20/2012 ASHLEY BRUNO MD V76 .2 CERVICAL CANCER SCREENING (PAP SMEAR) 10/20/2012 ASHLEY BRUNO MD V73 .81 HPV SCREENING 10/20/2012 ASHLEY BRUNO MD V76 .10 BREAST CANCER SCREENING 10/20/2012 ASHLEY BRUNO MD V76 .2 CERVICAL CANCER SCREENING (PAP SMEAR) 10/20/2012 ASHLEY BRUNO MD V73 .81 HPV SCREENING 10/20/2012 ASHLEY BRUNO MD V76 .10 BREAST CANCER SCREENING 10/20/2012 ASHLEY BRUNO MD V76 .2 CERVICAL CANCER SCREENING (PAP SMEAR) 10/20/2012 ASHLEY BRUNO MD V73 .81 HPV SCREENING 10/20/2012 ASHLEY BRUNO MD V76 .10 BREAST CANCER SCREENING 10/20/2012 ASHLEY BRUNO MD V76 .2 CERVICAL CANCER SCREENING (PAP SMEAR) 10/20/2012 ASHLEY BRUNO MD V73 .81 HPV SCREENING 10/20/2012 ASHLEY BRUNO MD V76 .10 BREAST CANCER SCREENING 10/20/2012 ASHLEY BRUNO MD V76 .2 CERVICAL CANCER SCREENING (PAP SMEAR) 10/20/2012 ASHLEY BRUNO MD V73 .81 HPV SCREENING 10/20/2012 ASHLEY BRUNO MD V76 .10 BREAST CANCER SCREENING 10/20/2012 ASHLEY BRUNO MD V76 .2 CERVICAL CANCER SCREENING (PAP SMEAR) 10/20/2012 ASHLEY BRUNO MD V73 .81 HPV SCREENING 10/20/2012 ASHLEY BRUNO MD V76 .10 BREAST CANCER SCREENING 10/20/2012 ASHLEY BRUNO MD V76 .2 CERVICAL CANCER SCREENING (PAP SMEAR) 10/20/2012 ASHLEY BRUNO MD V73 .81 HPV SCREENING 10/20/2012 ASHLEY BRUNO MD V76 .10 BREAST CANCER SCREENING 10/20/2012 ASHLEY BRUNO MD V76 .2 CERVICAL CANCER SCREENING (PAP SMEAR) 10/20/2012 JAMI ROSAS APRN V73.81 HPV SCREENING 10/20/2012 JAMI ROSAS APRN V76.10 BREAST CANCER SCREENING 10/20/2012 JAMI ROSAS APRN V7 6.2 CERVICAL CANCER SCREENING (PAP SMEAR) 10/20/2012 ASHLEY BRUNO MD V73 .81 HPV SCREENING 10/20/2012 ASHLEY BRUNO MD V76 .10 BREAST CANCER SCREENING 10/20/2012 ASHLEY BRUNO MD V76 .2 CERVICAL CANCER SCREENING (PAP SMEAR) 10/20/2012 ASHLEY BRUNO MD V73 .81 HPV SCREENING 10/20/2012 ASHLEY BRUNO MD V76 .10 BREAST CANCER SCREENING 10/20/2012 ASHLEY BRUNO MD V76 .2 CERVICAL CANCER SCREENING (PAP SMEAR) 10/20/2012 ASHLEY BRUNO MD V73 .81 HPV SCREENING 10/20/2012 ASHLEY BRUNO MD V76 .10 BREAST CANCER SCREENING 10/20/2012 ASHLEY BRUNO MD V76 .2 CERVICAL CANCER SCREENING (PAP SMEAR) 10/20/2012 ASHLEY BRUNO MD V73 .81 HPV SCREENING 10/20/2012 ASHLEY BRUNO MD V76 .10 BREAST CANCER SCREENING 10/20/2012 ASHLEY BRUNO MD V76 .2 CERVICAL CANCER SCREENING (PAP SMEAR) 10/20/2012 ASHLEY BRUNO MD V73 .81 HPV SCREENING 10/20/2012 ASHLEY BRUNO MD V76 .10 BREAST CANCER SCREENING 10/20/2012 ASHLEY BRUNO MD V76 .2 CERVICAL CANCER SCREENING (PAP SMEAR) 10/20/2012 ASHLEY BRUNO MD V73 .81 HPV SCREENING 10/20/2012 ASHLEY BRUNO MD V76 .10 BREAST CANCER SCREENING 10/20/2012 ASHLEY BRUNO MD V76 .2 CERVICAL CANCER SCREENING (PAP SMEAR) 05/18/2013 SOCRATES TALAVERA MD 719.46 joint pain in the left knee 05/18/2013 SOCRATES TALAVERA MD 724.2 lower back pain 05/18/2013 RALPH LLANES, JAMI A 719.46 joint pain in the left knee 05/18/2013 RALPHHELEN LLANES, JAMI A 72 4.2 lower back pain 05/18/2013 SOCRATES TALAVERA MD 719.46 joint pain in the left knee 05/18/2013 SOCRATES TALAVERA MD 724.2 lower back pain 05/18/2013 PETTY DO, SANDEEP K 719.46 joint pain in the left knee 05/18/2013 PETTY DO, SANDEEP K 724.2 lower back pain 05/18/2013 RALPH LLANES, JAMI A 719.46 joint pain in the left knee 05/18/2013 RALPH LLANES, JAMI A 72 4.2 lower back pain 05/18/2013 PETTY DO, SANDEEP K 719.46 joint pain in the left knee 05/18/2013 PETTY DO, SANDEEP K 724.2 lower back pain 05/18/2013 PETTY DO, SANDEEP K 719.46 joint pain in the left knee 05/18/2013 PETTY DO, SANDEEP K 724.2 lower back pain 05/18/2013 ASHLEY BRUNO MD N 719 .46 joint pain in the left knee 05/18/2013 ASHLEY BRUNO MD 724 .2 lower back pain 05/18/2013 CHADWICK LLANES, LOVE R 719.46 joint pain in the left knee 05/18/2013 CHADWICK LLANES, LOVE R 724.2 lower back pain 05/18/2013 PETTY DO, SANDEEP K 719.46 joint pain in the left knee 05/18/2013 PETTY DO, SANDEEP K 724.2 lower back pain 05/18/2013 ASHLEY BRUNO MD N 719 .46 joint pain in the left knee 05/18/2013 ASHLEY BRUNO MD 724 .2 lower back pain 05/18/2013 ASHLEY BRUNO MD N 719 .46 joint pain in the left knee 05/18/2013 ASHLEY BRUNO MD N 724 .2 lower back pain 05/18/2013 ASHLEY BRUNO MD 719 .46 joint pain in the left knee 05/18/2013 KIANA MD, ASHLEY N 724 .2 lower back pain 05/18/2013 ASHLEY BRUNO MD N 719 .46 joint pain in the left knee 05/18/2013 ASHLEY BRUNO MD N 724 .2 lower back pain 05/18/2013 KIANA MONZON ASHLEY N 719 .46 joint pain in the left knee 05/18/2013 ELMO BRUNO MDY N 724 .2 lower back pain 05/18/2013 ELMO BRUNO MDY N 719 .46 joint pain in the left knee 05/18/2013 ELMO BRUNO MDY N 724 .2 lower back pain 05/18/2013 KIANA MONZON ASHLEY N 719 .46 joint pain in the left knee 05/18/2013 ASHLEY BRUNO MD N 724 .2 lower back pain 05/18/2013 ASHLEY BRUNO MD N 719 .46 joint pain in the left knee 05/18/2013 ASHLEY BRUNO MD N 724 .2 lower back pain 05/18/2013 RALPHJAMI CERVANTES APRN A 719.46 joint pain in the left knee 05/18/2013 MARYAN ROSAS APRNIDI A 72 4.2 lower back pain 05/18/2013 ASHLEY BRUNO MD N 719 .46 joint pain in the left knee 05/18/2013 ASHLEY BRUNO MD N 724 .2 lower back pain 05/18/2013 ELMO BRUNO MDY N 719 .46 joint pain in the left knee 05/18/2013 ASHLEY BRUNO MD N 724 .2 lower back pain 05/18/2013 ASHLEY BRUNO MD N 719 .46 joint pain in the left knee 05/18/2013 ELMO BRUNO MDY N 724 .2 lower back pain 05/18/2013 ELMO BRUNO MDY N 719 .46 joint pain in the left knee 05/18/2013 ELMO BRUNO MDY N 724 .2 lower back pain 05/18/2013 ELMO BRUNO MDY N 719 .46 joint pain in the left knee 05/18/2013 ELMO BRUNO MDY N 724 .2 lower back pain 05/18/2013 ELMO BRUNO MDY N 719 .46 joint pain in the left knee 05/18/2013 ASHLEY RBUNO MD N 724 .2 lower back pain 05/19/2013 JAMI ROSAS APRN A 789.04 ABDOMINAL PAIN LEFT LOWER QUADRANT 05/19/2013 SOCRATES TALAVERA MD 789.04 ABDOMINAL PAIN LEFT LOWER QUADRANT 05/19/2013 PETTY DO, SANDEEP K 789.04 ABDOMINAL PAIN LEFT LOWER QUADRANT 05/19/2013 JAMI ROSAS APRN A 789.04 ABDOMINAL PAIN LEFT LOWER QUADRANT 05/19/2013 PETTY DO, SANDEEP K 789.04 ABDOMINAL PAIN LEFT LOWER QUADRANT 05/19/2013 PETTY DO, SANDEEP K 789.04 ABDOMINAL PAIN LEFT LOWER QUADRANT 05/19/2013 ASHLEY BRUNO MD N 789 .04 ABDOMINAL PAIN LEFT LOWER QUADRANT 05/19/2013 LOVE GENAO APRN 789.04 ABDOMINAL PAIN LEFT LOWER QUADRANT 05/19/2013 PETTY DO, SANDEEP K 789.04 ABDOMINAL PAIN LEFT LOWER QUADRANT 05/19/2013 ASHLEY BRUNO MD N 789 .04 ABDOMINAL PAIN LEFT LOWER QUADRANT 05/19/2013 ASHLEY BRUNO MD N 789 .04 ABDOMINAL PAIN LEFT LOWER QUADRANT 05/19/2013 ASHLEY BRUNO MD N 789 .04 ABDOMINAL PAIN LEFT LOWER QUADRANT 05/19/2013 ASHLEY BRUNO MD N 789 .04 ABDOMINAL PAIN LEFT LOWER QUADRANT 05/19/2013 ASHLEY BRUNO MD N 789 .04 ABDOMINAL PAIN LEFT LOWER QUADRANT 05/19/2013 ASHLEY BRUNO MD N 789 .04 ABDOMINAL PAIN LEFT LOWER QUADRANT 05/19/2013 ASHLEY BRUNO MD N 789 .04 ABDOMINAL PAIN LEFT LOWER QUADRANT 05/19/2013 ASHLEY BRUNO MD N 789 .04 ABDOMINAL PAIN LEFT LOWER QUADRANT 05/19/2013 JAIM ROSAS APRN A 789.04 ABDOMINAL PAIN LEFT LOWER QUADRANT 05/19/2013 ASHLEY BRUNO MD N 789 .04 ABDOMINAL PAIN LEFT LOWER QUADRANT 05/19/2013 ASHLEY BRUNO MD N 789 .04 ABDOMINAL PAIN LEFT LOWER QUADRANT 05/19/2013 ASHLEY BRUNO MD N 789 .04 ABDOMINAL PAIN LEFT LOWER QUADRANT 05/19/2013 ASHLEY BRUNO MD N 789 .04 ABDOMINAL PAIN LEFT LOWER QUADRANT 05/19/2013 ASHLEY BRUNO MD N 789 .04 ABDOMINAL PAIN LEFT LOWER QUADRANT 05/19/2013 ASHLEY BRUNO MD N 789 .04 ABDOMINAL PAIN LEFT LOWER QUADRANT 06/14/2013 BRUNO MONZON, YOSSI Bellamy Ot 789.04 ABDOMINAL PAIN, LEFT LOWER QUADRANT 06/15/2013 PETTY DO, SANDEEP K 789.00 ABDOMINAL PAIN UNSPECIFIED SITE 06/15/2013 JAMI ROSAS APRN A 789.00 ABDOMINAL PAIN UNSPECIFIED SITE 06/15/2013 PETTY DO, SANDEEP K 789.00 ABDOMINAL PAIN UNSPECIFIED SITE 06/15/2013 PETTY DO, SANDEEP K 789.00 ABDOMINAL PAIN UNSPECIFIED SITE 06/15/2013 ASHLEY BRUNO MD N 789 .00 ABDOMINAL PAIN UNSPECIFIED SITE 06/15/2013 LOVE GENAO APRN R 789.00 ABDOMINAL PAIN UNSPECIFIED SITE 06/15/2013 PETTY DO, SANDEEP K 789.00 ABDOMINAL PAIN UNSPECIFIED SITE 06/15/2013 ASHLEY BRUNO MD N 789 .00 ABDOMINAL PAIN UNSPECIFIED SITE 06/15/2013 ASHLEY BRUNO MD N 789 .00 ABDOMINAL PAIN UNSPECIFIED SITE 06/15/2013 ASHLEY BRUNO MD N 789 .00 ABDOMINAL PAIN UNSPECIFIED SITE 06/15/2013 ASHLEY BRUNO MD N 789 .00 ABDOMINAL PAIN UNSPECIFIED SITE 06/15/2013 ASHLEY BRUNO MD N 789 .00 ABDOMINAL PAIN UNSPECIFIED SITE 06/15/2013 ASHLEY BRUNO MD N 789 .00 ABDOMINAL PAIN UNSPECIFIED SITE 06/15/2013 ASHLEY BRUNO MD N 789 .00 ABDOMINAL PAIN UNSPECIFIED SITE 06/15/2013 ASHLEY BRUNO MD N 789 .00 ABDOMINAL PAIN UNSPECIFIED SITE 06/15/2013 JAMI ROSAS APRN A 789.00 ABDOMINAL PAIN UNSPECIFIED SITE 06/15/2013 ASHLEY BRUNO MD N 789 .00 ABDOMINAL PAIN UNSPECIFIED SITE 06/15/2013 ASHLEY BRUNO MD N 789 .00 ABDOMINAL PAIN UNSPECIFIED SITE 06/15/2013 ASHLEY BRUNO MD N 789 .00 ABDOMINAL PAIN UNSPECIFIED SITE 06/15/2013 ASHLEY BRUNO MD N 789 .00 ABDOMINAL PAIN UNSPECIFIED SITE 06/15/2013 ASHLEY BRUNO MD N 789 .00 ABDOMINAL PAIN UNSPECIFIED SITE 06/15/2013 ASHLEY BRUNO MD N 789 .00 ABDOMINAL PAIN UNSPECIFIED SITE 06/21/2013 RALPH LLANES, JAMI A 789.07 ABDOMINAL PAIN GENERALIZED 06/21/2013 PETTY DO, SANDEEP K 789.07 ABDOMINAL PAIN GENERALIZED 06/21/2013 PETTY DO, SANDEEP K 789.07 ABDOMINAL PAIN GENERALIZED 06/21/2013 ASHLEY BRUNO MD N 789 .07 ABDOMINAL PAIN GENERALIZED 06/21/2013 CHADWICK WIRE LATHERLOVE Lee R 789.07 ABDOMINAL PAIN GENERALIZED 06/21/2013 PETTY DO, SANDEEP K 789.07 ABDOMINAL PAIN GENERALIZED 06/21/2013 ASHLEY BRUNO MD N 789 .07 ABDOMINAL PAIN GENERALIZED 06/21/2013 ASHLEY BRUNO MD N 789 .07 ABDOMINAL PAIN GENERALIZED 06/21/2013 ASHLEY BRUNO MD N 789 .07 ABDOMINAL PAIN GENERALIZED 06/21/2013 ASHLEY BRUNO MD N 789 .07 ABDOMINAL PAIN GENERALIZED 06/21/2013 ASHLEY BRUNO MD N 789 .07 ABDOMINAL PAIN GENERALIZED 06/21/2013 ASHLEY BRUNO MD N 789 .07 ABDOMINAL PAIN GENERALIZED 06/21/2013 ASHLEY BRUNO MD N 789 .07 ABDOMINAL PAIN GENERALIZED 06/21/2013 ASHLEY BRUNO MD N 789 .07 ABDOMINAL PAIN GENERALIZED 06/21/2013 RALPH LLANES, JAMI A 789.07 ABDOMINAL PAIN GENERALIZED 06/21/2013 ASHLEY BRUNO MD N 789 .07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
--- NOTE | 2019-10-19 14:28 | Anesthesia-General Post-Op ---
MAC Patient Condition Mental Status/LOC: Same as Preop Cardiovascular: Satisfactory Nausea/Vomiting: Absent Respiratory: Satisfactory Pain: Controlled Complications: Absent Post Op Complications Complications None Follow Up Care/Instructions Patient Instructions None needed. Anesthesiology Discharge Order Discharge Order Patient was seen after the procedure and she was doing well, no complaints, stable vital signs, no apparent adverse anesthesia problems. JAZZMINE ORTIZ DO Oct 19, 2019 14:27
--- NOTE | 2019-10-20 07:07 | OPERATIVE REPORT ---
DATE OF SERVICE: 10/19/2019 PREOPERATIVE DIAGNOSIS: Iron deficiency anemia. POSTOPERATIVE DIAGNOSES: Hiatal hernia, gastritis, normal colon. PROCEDURE: EGD with biopsies, colonoscopy. SURGEON: Ricki Kelly DO ANESTHESIA: Per SONG WRITER. ESTIMATED BLOOD LOSS: None. COMPLICATIONS: None. INDICATIONS: The patient is a 54-year-old female who was referred for EGD and colonoscopy due to iron deficiency anemia. She understands risks and benefits of procedure and wished to proceed with procedure. Consent was signed in the chart. DESCRIPTION OF PROCEDURE: The patient was taken to the endoscopy suite, placed in the left lateral recumbent position. Timeout was performed. Scope was inserted in mouth, down the esophagus, stomach and into the duodenum. There were no polyps, masses or ulcerations within the duodenum. Scope was slowly retracted back to stomach where it was further insufflated. Erythematous changes consistent with gastritis were present. Biopsy of the antrum was obtained. Scope was retroflexed noting a moderate sized hiatal hernia, no other pathology noted. Scope was returned to its normal position, slowly withdrawn to the distal esophagus. Biopsy of the GE junction was obtained. Scope was then slowly retracted back to completely remove noting no other pathology. Digital rectal exam was performed. No palpable polyps, masses or ulcerations. Scope was inserted in the rectum and advanced all the way to cecum with minimal difficulty. Prep was adequate. Scope was then slowly retracted back. There were no polyps, masses or ulcerations within the cecum, ascending, transverse, descending and sigmoid colon. Once in the rectum, scope was retroflexed noting no other pathology. The patient tolerated procedure well without any complications. She was taken to recovery room in stable condition. RECOMMENDATIONS: The patient will continue on current medications. We will reassess once the biopsies return. The patient will need repeat colonoscopy in 10 years unless family history of colon cancer, which would then be 5 years. If she has any issues before that, she should be reevaluated at that time. Job ID: [id number] DocumentID: [id number] Dictated Date: 10/19/2019 21:32:01 Welder Fabricator Date: 10/20/2019 07:06:26 Dictated By: RICKI KELLY DO
== END 2019-10-19 14:15 | disposition home or self-care (01) ==
LOC: ENDO 11:03
PROVIDERS: ATTEND Surgery
DX: D50.9 Iron deficiency anemia, unspecified (principal); K44.9 Diaphragmatic hernia without obstruction or gangrene; K29.70 Gastritis, unspecified, without bleeding; R60.9 Edema, unspecified; E66.9 Obesity, unspecified; Z68.38 Body mass index [BMI] 38.0-38.9, adult; Z79.899 Other long term (current) drug therapy; Z82.49 Family history of ischemic heart disease and other diseases of the circulatory system
CPT/HCPCS: 84703

== ENCOUNTER → 2020-03-26 | Outpatient (CLI) | payer MEDICAID ==
[~2020-03-26] MED LIST changes: +PANT20TA18 PO; -PANT20TA3 PO
--- NOTE | 2020-03-27 09:08 | Diagnostic Imaging Report ---
INDICATION: Routine screening. Comparison is made with prior mammogram from 01/11/2019 and 12/04/2017. 2-D and 3-D bilateral screening mammography was performed with CAD. Both breasts are heterogeneously dense, limiting the sensitivity of mammography. Intraparenchymal lymph node outer left breast is stable. No new mass or malignant appearing microcalcifications are seen. There are benign calcifications. Axillae are unremarkable. IMPRESSION: BI-RADS Category 2 No mammographic features suspicious for malignancy are identified. ACR BI-RADS Category 2: Benign findings. Result letter will be mailed to the patient. Note: At least 10% of breast cancer is not imaged by mammography. Dictated by: Dictated on workstation # [id number]
== END ==
LOC: RAD 13:58
PROVIDERS: ATTEND Nurse Practitioner Family
DX: Z12.31 Encounter for screening mammogram for malignant neoplasm of breast (principal)
CPT/HCPCS: 77063; 77067

== ENCOUNTER → 2020-09-21 | Outpatient (CLI) | payer MEDICAID ==
[~2020-09-21] MED LIST changes: +ESCI-2 PO; -ESCI10TA55 PO; -HYDR50TA3 PO; +HYDR50TA6 PO
--- NOTE | 2020-09-21 18:45 | Diagnostic Imaging Report ---
PROCEDURE: MRI left joint lower extremity without contrast. TECHNIQUE: Multiplanar, multisequence non contrast-enhanced MRI of the left lower extremity was accomplished. INDICATION: Left knee pain x2 years. EXAMINATION: MRI left knee without contrast 09/21/2020 FINDINGS: Comparison made to previous MRI dated 05/24/2013 The extensor mechanism appears intact. The ACL and PCL intact. The MCL is intact. Minimal adjacent edema seen medially which could be due to a sprain. There is no discontinuity. The lateral collateral ligamentous complex appears intact. There is blunting of the free edge of the posterior horn of the medial meniscus consistent with a focal tear. Linear horizontal high signal extends into the meniscal body. There is an undersurface tear along the posterior horn of the lateral meniscus. There is mild/moderate heterogeneity and loss of cartilage in the medial and lateral joint spaces. There is mild to moderate thinning of the cartilage over the patella. Subchondral cystic change in the patella is noted. There is a small joint effusion. There is a complex septated Gomez's cyst. The adjacent edema tracking medially abutting the MCL could be from a leaking Gomez's cyst versus an MCL sprain; correlate with symptoms and history. Other cystic changes posterior to the knee consistent with ganglia. IMPRESSION: 1. Tear of the posterior horn and body of the medial meniscus with a undersurface tear of the posterior horn of the lateral meniscus 2. Tricompartmental degenerative disease 3. MCL sprain versus edema secondary to a leaking Gomez's cyst. Dictated by: Dictated on workstation # [id number]
== END ==
LOC: RAD 16:15
PROVIDERS: ATTEND Orthopaedic Surgery
DX: S83.242A Other tear of medial meniscus, current injury, left knee, initial encounter (principal); S86.812A Strain of other muscle(s) and tendon(s) at lower leg level, left leg, initial encounter; M17.12 Unilateral primary osteoarthritis, left knee; X58.XXXA Exposure to other specified factors, initial encounter
CPT/HCPCS: 73721

== ENCOUNTER 2020-11-02 13:05 | Outpatient (RCR) | payer MEDICAID | END 2020-11-29 16:11 | disposition home or self-care (01) | PROVIDERS: ATTEND Physician Assistant Medical | DX: S83.242D Other tear of medial meniscus, current injury, left knee, subsequent encounter (principal); X58.XXXD Exposure to other specified factors, subsequent encounter; Z86.718 Personal history of other venous thrombosis and embolism; D68.51 Activated protein C resistance ==

== ENCOUNTER 2021-02-28 10:22 | Outpatient (CLI) | payer MEDICAID ==
[~2021-02-28] VITALS: Ht 163 cm; Wt 101.0 kg
[2021-02-28] MEDS ORDERED: diphenhydrAMINE 50 MG/ML INJ (BENADRYL) IV PRN (10:45)
[2021-02-28] MEDS ORDERED: EPINEPHrine INJECTION 1 MG/ML AMP IM PRN (10:45)
[2021-02-28] MEDS ORDERED: ONDANSETRON 4 MG/2 ML (SDV) Z0FRAN IV PRN (10:45)
[2021-02-28] MEDS ORDERED: CASIRIVIMAB/IMDEVIMAB 1,200 MG in NS (IVPB) 250 ML IV ONE (10:45)
[2021-02-28] MEDS ORDERED: ACETAMINOPHEN 500 MG TAB (TYLENOL) PO PRN (10:45)
[2021-02-28 10:54] VITALS: BP 111/69
[2021-02-28 12:10] VITALS: BP 143/71
== END 2021-02-28 12:10 | disposition home or self-care (01) ==
LOC: INFUSION 10:22
PROVIDERS: ATTEND Nurse Practitioner Family
DX: U07.1 COVID-19 (principal)

== ENCOUNTER 2021-07-11 11:12 | Emergency (ER) | payer MEDICAID ==
[~2021-07-11] VITALS: Ht 162 cm; Wt 102.0 kg
[2021-07-11] MEDS ORDERED: HOLD METFORMIN - RECEIVED CONTRAST 20 ML VIAL IV SCH (11:45)
[2021-07-11] MEDS ORDERED: CATHETER FLUSH 10 ML SYR IV PRN (11:45)
[2021-07-11] MEDS ORDERED: NS 100 ML (IVPB) BAG IV ONE (11:45)
[2021-07-11] MEDS ORDERED: IOHEXOL 350 MG/ML 100 ML (OMNIPAQUE 350) VIAL IV ONE (11:45)
[2021-07-11 11:48] LABS: BASOPHILS # (AUTO) 0.1 10^3/uL (0.0-0.1); BASOPHILS % (AUTO) 1 % (0-10); EOSINOPHILS # (AUTO) 0.2 10^3/uL (0.0-0.3); EOSINOPHILS % (AUTO) 3 % (0-10); HEMATOCRIT 38 % (35-52); HEMOGLOBIN 12.2 g/dL (11.5-16.0); LYMPHOCYTES # (AUTO) 1.5 10^3/uL (1.0-4.0); LYMPHOCYTES % (AUTO) 20 % (12-44); MEAN CORPUSCULAR HEMOGLOBIN 28 pg (25-34); MEAN CORPUSCULAR HGB CONC 33 g/dL (32-36); MEAN CORPUSCULAR VOLUME 86 fL (80-99); MEAN PLATELET VOLUME 9.4 fL (9.0-12.2); MONOCYTES # (AUTO) 0.7 10^3/uL (0.0-1.0); MONOCYTES % (AUTO) 9 % (0-12); NEUTROPHILS # (AUTO) 5.1 10^3/uL (1.8-7.8); NEUTROPHILS % (AUTO) 67 % (42-75); PLATELET COUNT 232 10^3/uL (130-400); WHITE BLOOD COUNT 7.6 10^3/uL (4.3-11.0)
--- NOTE | 2021-07-11 11:50 | ED Abdominal Pain ---
General Chief Complaint: Abdominal/GI Problems Stated Complaint: ABD PAIN Source of Information: Patient Exam Limitations: No Limitations (CURRY LOO) History of Present Illness Date Seen by Provider: Jul 11, 2021 Time Seen by Provider: 11:46 Initial Comments Patient is a 56-year-old female who presents ED with lower abdominal cramping and discomfort. She has had this pain for a few months now but the pain became worse over the past few days. Increase in pain described as cramping with discomfort in her lower back as well. History of back surgery with kyphoplasty but today's pain is lower. Has been taken Tylenol at home. She states she had a venogram done this past Thursday at [facility] by Dr. Hussein. She had stents placed in her lower extremities secondary to chronic DVTs and varicose veins. She states of leg pain that has improved. She is currently on Xarelto. She has no chest pain or shortness of breath. She has known enlarged veins in her abdomen. She has had a work-up in the past for this abdominal pain but the pain is worse today. No vomiting, diarrhea, urinary symptoms. History of , cholecystectomy in the past. Denies fever, chills, headache, dizziness. Patient has factor V Leiden. (CURRY LOO) Allergies and Home Medications Allergies Coded Allergies: No Known Drug Allergies (Verified , 10/19/19) Patient Home Medication List Home Medication List Reviewed: Yes (CURRY LOO) Cholecalciferol (Vitamin D3) (Vitamin D3) 125 Mcg Capsule, 125 MCG PO DAILY, (Reported) Entered as Reported by: JAE YANEZ on 10/12/19 1449 Escitalopram Oxalate (Escitalopram Oxalate) 10 Mg Tablet, 10 MG PO HS, (Reported) Entered as Reported by: DIPAK LOCKETT on 07/14/18 2255 Ferrous Sulfate (Iron) 325 Mg Tablet, 325 MG PO DAILY, (Reported) Entered as Reported by: JAE YANEZ on 10/12/19 1449 Hydrochlorothiazide (Hydrochlorothiazide) 50 Mg Tablet, 50 MG PO DAILY PRN for SWELLING, (Reported) Entered as Reported by: LSEVIA HERR on 07/15/18 0846 Hydrocodone/Acetaminophen (Hydrocodone-Acetamin 5-325 mg) 1 Each Tablet, 1 TAB PO Q4H PRN for PAIN-MODERATE (5-7) Prescribed by: ANTHONY DUGGAN on 07/11/21 153 Levothyroxine Sodium (Levothyroxine Sodium) 50 Mcg Tablet, 50 MCG PO DAILY, (Reported) Entered as Reported by: JAE YANEZ on 10/12/19 1449 Naltrexone HCl/Bupropion HCl (Contrave ER 8-90 mg Tablet) 1 Each Tablet.er, 1 EACH PO DAILY, (Reported) Entered as Reported by: JAE YANEZ on 10/12/19 1449 Pantoprazole Sodium (Pantoprazole Sodium) 20 Mg Tablet.dr, 20 MG PO HS, (Reported) Entered as Reported by: DIPAK LOCKETT on 07/14/182254 Rivaroxaban (Xarelto) 20 Mg Tablet, 20 MG PO HS, (Reported) Entered as Reported by: DIPAK LOCKETT on 07/14/182254 Discontinued Medications Hydrocodone/Acetaminophen (Hydrocodone-Acetamin 5-325 mg) 1 Each Tablet, 1 TAB PO Q4H PRN for PAIN-MODERATE (5-7) Prescribed by: ANTHONY DUGGAN on 07/11/211534 Review of Systems Review of Systems Constitutional: No chills, No diaphoresis, No malaise, No weakness EENTM: No Eye Pain Respiratory: Denies Cough, Denies Orthopnea Cardiovascular: Denies Chest Pain, Denies Edema, Denies Irregular Heart Rate Gastrointestinal: Denies Abdomen Distended; Abdominal Pain; Denies Constipated, Denies Diarrhea, Denies Difficulty Swallowing, Denies Rectal Bleeding, Denies Vomiting Genitourinary: Denies Burning, Denies Discharge, Denies Frequency Musculoskeletal: back pain; No joint pain Skin: No change in color, No change in hair/nails Endocrine: Denies Flushing Hematologic/Lymphatic: Denies Anemia (CURRY LOO) All Other Systems Reviewed Negative Unless Noted: Yes (CURRY LOO) Past Wdhkimw-Svcuby-Xwbiau Hx Immunizations Up To Date Tetanus Booster (TDap): Unknown (CURRY LOO) Seasonal Allergies Seasonal Allergies: No (CURRY LOO) Past Medical History Surgeries: Yes (BACK, L LEG, LAP BAND, c/s x2, L SHLD x2, gastric sleeve, VENA CAVA FILTER) Section, Gallbladder, Thyroidectomy Respiratory: No Cardiac: Yes Deep Vein Thrombosis Neurological: No Reproductive Disorders: No Sexually Transmitted Disease: No HIV/AIDS: No Genitourinary: No Gastrointestinal: Yes (hx lap band and gastric sleeve) Gastroesophageal Reflux Musculoskeletal: Yes (L3 compression fx) Chronic Back Pain Endocrine: Yes (thyroidectomy) Hypothyroidsim HEENT: No (READING GLASSES, PARITAL DENTURE) Loss of Vision: Denies Hearing Impairment: Denies Cancer: No Psychosocial: Yes Anxiety Integumentary: No Blood Disorders: Yes (CLOTTING DISORDERS, FACTOR FIVE) Adverse Reaction/Blood Tranf: No (N/A) (CURRY LOO) Family Medical History Patient reports no known family medical history. No Pertinent Family Hx (CURRY LOO) Physical Exam Vital Signs Vital Signs - First Documented 07/11/21 07/11/21 11:25 18:20 Temp 37.0 Pulse 122 Resp 18 B/P (MAP) 119/91 (100) Pulse Ox 97 O2 Delivery Room Air (NARA CARTER MD) Vital Signs Capillary Refill : (CURRY LOO) Height/Weight/BMI Height: 5'3.00" Weight: 200lbs. 0.0oz. 90.080921ci; 38.10 BMI Method:Stated General Appearance: WD/WN, no apparent distress HEENT: PERRL/EOMI, normal ENT inspection, TMs normal, pharynx normal Neck: non-tender, full range of motion, supple, normal inspection Respiratory: chest non-tender, lungs clear, normal breath sounds, no respiratory distress Cardiovascular: no edema, no gallop, no JVD, tachycardia Gastrointestinal: normal bowel sounds, non tender, soft, no organomegaly Extremities: normal range of motion, non-tender, no pedal edema, no calf tenderness Back: no CVA tenderness, no vertebral tenderness, other (Bilateral lumbar paraspinal muscle tenderness.) Neurologic/Psychiatric: mobile practice lead II-XII nml as tested, no motor/sensory deficits, alert, normal mood/affect, oriented x 3 Skin: normal color (CURRY LOO) Progress/Results/Core Measures Results/Orders Lab Results Laboratory Tests Test 07/11/21 11:40 07/11/21 12:20 Range/Units White Blood Count 7.6 4.3-11.0 10^3/uL Red Blood Count 4.35 3.80-5.11 10^6/uL Hemoglobin 12.2 11.5-16.0 g/dL Hematocrit 38 35-52 % Mean Corpuscular Volume 86 80-99 fL Mean Corpuscular Hemoglobin 28 25-34 pg Mean Corpuscular Hemoglobin Concent 33 32-36 g/dL Red Cell Distribution Width 13.4 10.0-14.5 % Platelet Count 232 130-400 10^3/uL Mean Platelet Volume 9.4 9.0-12.2 fL Immature Granulocyte % (Auto) 0 % Neutrophils (%) (Auto) 67 42-75 % Lymphocytes (%) (Auto) 20 12-44 % Monocytes (%) (Auto) 9 0-12 % Eosinophils (%) (Auto) 3 0-10 % Basophils (%) (Auto) 1 0-10 % Neutrophils # (Auto) 5.1 1.8-7.8 10^3/uL Lymphocytes # (Auto) 1.5 1.0-4.0 10^3/uL Monocytes # (Auto) 0.7 0.0-1.0 10^3/uL Eosinophils # (Auto) 0.2 0.0-0.3 10^3/uL Basophils # (Auto) 0.1 0.0-0.1 10^3/uL Immature Granulocyte # (Auto) 0.0 0.0-0.1 10^3/uL Prothrombin Time 14.7 12.2-14.7 SEC INR Comment 1.1 0.8-1.4 Activated Partial Thromboplast Time 34 24-35 SEC Sodium Level 138 135-145 MMOL/L Potassium Level 4.2 3.6-5.0 MMOL/L Chloride Level 102 98-107 MMOL/L Carbon Dioxide Level 23 21-32 MMOL/L Anion Gap 13 5-14 MMOL/L Blood Urea Nitrogen 9 7-18 MG/DL Creatinine 0.91 0.60-1.30 MG/DL Estimat Glomerular Filtration Rate 75 BUN/Creatinine Ratio 10 Glucose Level 111 H 70-105 MG/DL Calcium Level 9.3 8.5-10.1 MG/DL Corrected Calcium 9.3 8.5-10.1 MG/DL Total Bilirubin 0.3 0.1-1.0 MG/DL Aspartate Amino Transf (AST/SGOT) 15 5-34 U/L Alanine Aminotransferase (ALT/SGPT) 16 0-55 U/L Alkaline Phosphatase 82 40-136 U/L Total Protein 7.0 6.4-8.2 GM/DL Albumin 4.0 3.2-4.5 GM/DL Lipase 118 H 8-78 U/L Urine Color YELLOW Urine Clarity CLEAR Urine pH 8.0 5-9 Urine Specific [place] 1.020 1.016-1.022 Urine Protein NEGATIVE NEGATIVE Urine Glucose (UA) NEGATIVE NEGATIVE Urine Ketones NEGATIVE NEGATIVE Urine Nitrite NEGATIVE NEGATIVE Urine Bilirubin NEGATIVE NEGATIVE Urine Urobilinogen 0.2 < = 1.0 MG/DL Urine Leukocyte Esterase NEGATIVE NEGATIVE Urine RBC (Auto) NEGATIVE NEGATIVE Urine RBC NONE /HPF Urine WBC NONE /HPF Urine Squamous Epithelial Cells RARE /HPF Urine Crystals NONE /LPF Urine Bacteria NEGATIVE /HPF Urine Casts NONE /LPF Urine Mucus NEGATIVE /LPF Urine Culture Indicated NO (NARA CARTER MD) Vital Signs/I&O 07/11/21 07/11/21 11:25 18:20 Temp 37.0 Pulse 122 90 Resp 18 16 B/P (MAP) 119/91 (100) 111/83 Pulse Ox 97 98 O2 Delivery Room Air (NARA CARTER MD) Departure Communication (PCP) StentPatient is a 56-year-old female presents to ED with bilateral lower abdominal cramping pain. Had placed in her legs by Dr. Bonilla at [facility] this past Thursday. Worsening pain over the past 2 days. She has no specific pain swelling or bruising to the lower extremity. History of varicose veins with poor circulation history of DVT. Factor V Leiden. Currently on Xarelto. No chest pain or shortness of breath. Vital signs stable but was slightly tachycardic which improved after pain control. Patient lab work was otherwise unremarkable. CT abdomen pelvis showed IVC filter with patent vena cava. A left iliofemoral venous stent is believe occluded. Correlate with ultrasound. Did note extensive well formed pelvic venous collaterals superficially likely draining left to right which may be associated some of the pain versus stent occlusion. Limited visualization with no evidence of flow in the mid to distal left superficial femoral vein. Concerning for occlusion. No deep venous thromboses of the right lower extremity. Hypoechoic focus in the left groin containing blood flow. This may be concerning for pseudoaneurysm formation or prominent varicose veins. Dr. Hussein was consulted at [facility]. He recommended transfer with vascular surgery in the morning. Patient agrees with transfer at this time. Patient will be transferred by [facility]. Patient was given IV pain medication with improvement of pain. (CURRY LOO) Impression Primary Impression: Occlusion of femoral vein Disposition: XFER SHT-TRM HOSP Condition: Stable Transfer Transfer Reason: Exceeds level of care Time Spoke to Accepting Phy: 16:20 Transfer Time: 16:20 Transfer Facility: [facility] Method of Transfer: EMS (CURRY LOO) Departure-Patient Inst. Decision time for Depature: 15:34 (CURRY LOO) Referrals: ASHLEY BRUNO MD (PCP/Family) Primary Care Physician Patient Instructions: Abdominal Pain, Adult ED Scripts Hydrocodone/Acetaminophen (Hydrocodone-Acetamin 5-325 mg) 1 Each Tablet 1 TAB PO Q4H PRN for PAIN-MODERATE (5-7), #8 TAB Prov: CURRY LOO 07/11/21 ATTENDING PHYSICIAN NOTE: I was physically present as attending physician in the emergency department during the care of this patient, but I was not directly involved in the decision making or delivery of care for this patient. (NARA CARTER MD) CURRY LOO Jul 11, 2021 11:50 NARA CARTER MD Jul 12, 2021 10:45
[2021-07-11 11:56] LABS: POTASSIUM 4.2 MMOL/L (3.6-5.0)
[2021-07-11 11:57] LABS: CALCIUM 9.3 MG/DL (8.5-10.1)
[2021-07-11 12:00] LABS: BILIRUBIN,TOTAL 0.3 MG/DL (0.1-1.0)
[2021-07-11 12:01] LABS: INR 1.1 (0.8-1.4); PROTHROMBIN TIME PATIENT 14.7 SEC (12.2-14.7)
[2021-07-11 12:02] LABS: CREATININE SERUM 0.91 MG/DL (0.60-1.30)
[2021-07-11 12:31] LABS: BILIRUBIN,URINE NEGATIVE (NEGATIVE); CLARITY,URINE CLEAR; COLOR,URINE YELLOW; GLUCOSE, URINE (UA) NEGATIVE (NEGATIVE); KETONES,URINE NEGATIVE (NEGATIVE); LEUKOCYTE ESTERASE ,URINE NEGATIVE (NEGATIVE); NITRITE,URINE NEGATIVE (NEGATIVE); PROTEIN,URINE NEGATIVE (NEGATIVE)
[2021-07-11 12:43] LABS: BACTERIA,URINE NEGATIVE /HPF; SQUAMOUS EPITHELIAL CELL,UR RARE /HPF
[2021-07-11] MEDS ORDERED: fentaNYL INJ 100 MCG/2 ML AMP IVP STA (12:44)
--- NOTE | 2021-07-11 12:59 | Diagnostic Imaging Report ---
PROCEDURE: CT abdomen and pelvis with contrast. TECHNIQUE: Multiple contiguous axial images were obtained through the abdomen and pelvis after administration of intravenous contrast. Auto Exposure Controls were utilized during the CT exam to meet ALARA standards for radiation dose reduction. All CT scans use one or more of the following dose optimizing techniques: automated exposure control, MA and/or KvP adjustment based on patient size and exam type or iterative reconstruction. INDICATION: Recent vascular procedure performed at an outside facility. Now complaining of pain. COMPARISON: No prior examinations are available for comparison. FINDINGS: There is a left iliac venous stent distally extending into the common femoral vein level. Throughout its lumen, there is no appreciable enhancement and this is likely occluded. This could be confirmed with color Doppler evaluation. The contralateral right iliac vein is mildly enhanced owing to bolus timing and can be confirmed patent. There is an indwelling IVC filter. The cava appears patent. There are extensive venous collaterals about the left groin and pelvis, likely left to right, consistent with chronic occlusion or chronic stenosis. The uterus, adnexa, and urinary bladder are unremarkable. The aortoiliac arterial system and mesenteric arteries and veins are all patent. There is a sleeve gastrectomy without complication apparent. The gallbladder is surgically absent. The liver, bile ducts, spleen, adrenals, and pancreas are unremarkable. There is a small hiatal hernia. There are no opaque kidney stones. There is no hydroureteronephrosis. The urinary bladder is normal. There is noninflamed diverticulosis of the sigmoid. There is no evidence for appendicitis. IMPRESSION: 1. There is an IVC filter with patent cava. A left iliofemoral venous stent is believed occluded; however, this could be confirmed with color Doppler as it is conceivably just slow to opacify and asymmetric to the contralateral right. We do note extensive well-formed pelvic venous collaterals superficially, likely draining left to right. 2. Noninflamed diverticulosis. Unobstructed urinary tracts. Sleeve gastrectomy with small hiatal hernia and prior cholecystectomy without pathological ductal dilatation. 3. Not mentioned above is a treated endplate compression deformity at L3 with kyphoplasty cement. No acute bony pathology. Dictated by: Dictated on workstation # [id number]
--- NOTE | 2021-07-11 14:40 | Diagnostic Imaging Report ---
PROCEDURE: US Venous Lower Ext Tr. TECHNIQUE: Multiple real-time grayscale images were obtained over the lower extremities in various projections, bilaterally. Additional duplex Doppler and color Doppler images were also obtained. INDICATION: Bilateral lower extremity pain and edema. Recent procedure for varicose veins. COMPARISON: 01/05/2014. FINDINGS: The left common femoral and profunda femoral veins are patent with normal compressibility. There is normal color Doppler filling and compressibility within the proximal left superficial femoral vein. There is nonvisualization of flow in the [id number] superficial femoral vein. The left popliteal vein and veins of the left calf demonstrate normal color Doppler filling. Focal area of hypoechogenicity is seen in the left groin which contains blood flow. The right common femoral vein, femoral vein, deep femoral vein, and popliteal vein are normal in appearance. These vessels show normal compressibility, color flow and doppler augmentation. The visualized deep calf veins demonstrate no distinct intraluminal thrombus. IMPRESSION: 1. Limited visualization with no evidence of flow in the [id number]-[id number] left superficial femoral vein. Findings may be due to limited sonographic windows or deep vein thrombus. Recommend follow-up. 2. No evidence of deep vein thrombus in the right lower extremity venous system. 3. Hypoechoic focus in the left groin containing blood flow. These findings can be seen with pseudoaneurysm formation. However, the CT performed the same date demonstrates prominent varicose veins in the left groin. Recommend correlation with patient symptoms and surgical history and follow-up, as indicated. Dictated by: Dictated on workstation # [id number]
[2021-07-11] MEDS ORDERED: ACHD5005 PO ×2 (15:34→15:39)
[2021-07-11] MEDS ORDERED: fentaNYL INJ 100 MCG/2 ML AMP IVP ONE (16:45)
[2021-07-11] MEDS ORDERED: ONDANSETRON 4 MG/2 ML (SDV) Z0FRAN IVP ONE (17:45)
[2021-07-11 18:20] VITALS: BP 111/83
== END 2021-07-11 18:20 | disposition short-term general hospital (02) ==
LOC: EDUNIT# 11:12 → ER 11:13
DX: I82.413 Acute embolism and thrombosis of femoral vein, bilateral (principal)
CPT/HCPCS: 36415; 74177; 80053; 81000; 83690; 85025; 85610; 85730; 93970; 99291